=== PATIENT | male | born 1960 | race Caucasian/White ===

== ENCOUNTER 2023-01-27 15:14 | Outpatient (RCR) | payer OTHER, SELFPAY | END 2023-02-21 12:34 | disposition home or self-care (01) | LOC: PT 15:14 | PROVIDERS: PCP Student in an Organized Health Care Education/Training Program; Visit Provider Specialist | DX: S90.01XD Contusion of right ankle, subsequent encounter (principal); M76.821 Posterior tibial tendinitis, right leg; M25.571 Pain in right ankle and joints of right foot | CPT/HCPCS: 97110; 97161; 97535 ==

== ENCOUNTER 2023-04-09 13:53 | Emergency (ER) | payer OTHER, SELFPAY ==
[2023-04-09 13:59] VITALS: BP 180/88; PULSE 78; RESP 20; TEMP 36.8; O2SAT 98; BMI 27.1
--- NOTE | 2023-04-09 14:08 | CT_ITS ---
The [address] [address] Patient Name: DARIUS VALERA MRN: [id number] date: 1960 Sex: M Assigned Patient Location: ER Current Patient Location: Accession/Order Number: [id number] Exam Date: 04/09/2023 14:40 Report Date: 04/09/2023 15:05 At the request of: PATRIZIA STARKS Procedure: CT abdomen pelvis wo con CT abdomen pelvis wo con, 04/09/2023 2:40 PM EDT INDICATION: Kidney stone COMPARISON: No prior CT scan of the abdomen and pelvis available for comparison at the time of this dictation. TECHNIQUE: Axial images of the abdomen and pelvis were obtained without IV contrast. Multiplanar reformatted images were generated and reviewed as needed. Dose reduction techniques were achieved by using automated exposure control and/or adjustment of mA and/or kV according to patient size and/or use of iterative reconstruction technique. FINDINGS: No consolidation or effusion. The liver, gallbladder, pancreas, spleen and adrenals are unremarkable on a non contrast scan. No nephrolithiasis. Mild left perinephric and periureteral fat stranding. 3 mm calculus at the left UVJ with mild collecting system dilatation proximally. No urinary bladder calculi. Central calcifications within a mildly enlarged prostate gland. No aortic aneurysm. No bowel obstruction or acute focal inflammation. Normal appendix. Colonic diverticulosis. No pneumatosis, pneumoperitoneum or ascites. No mesenteric or retroperitoneal lymphadenopathy. No acute fracture or dislocation. Multilevel degenerative disc disease, most pronounced T12/L1. CT/CT abdomen pelvis wo con IMPRESSION: 1. 3 mm calculus at the left UVJ with mild left hydroureteronephrosis. 2. Diverticulosis coli. Electronically authenticated by: BASILIO WU Date: 04/09/2023 15:05
--- NOTE | 2023-04-09 14:09 | ED.ABDPAIN1 ---
Documented by User: DOROTHEA Burnham 04/09/23 15:24 HPI - Abdominal Pain General Chief Complaint: Abdominal Pain Stated Complaint: FLANK PAIN Time Seen by Provider: 04/09/23 14:04 Source: patient Mode of arrival: walk-in Limitations: no limitations History of Present Illness HPI narrative: Patient is a 62-year-old male with a history of kidney stones presents to the emergency department for left flank pain radiating into the left side of the abdomen that began yesterday. He reports decreased urination and minimal dysuria. He has had no fevers, nausea or vomiting. No medications taken prior to arrival. He drove himself to the Emergency Room. He states he last passed kidney stone about ten years ago, he has not needed surgery for kidney stones in the past. Related Data Previous Rx's Medication Instructions Recorded ciprofloxacin HCl 500 mg tablet 500 mg PO BID #14 tabs 04/09/23 (Cipro) ketorolac 10 mg tablet 10 mg PO TID PRN pain #10 tabs 04/09/23 ondansetron 4 mg disintegrating 4 mg PO Q6H PRN nausea and 04/09/23 tablet vomiting #12 tabs oxycodone-acetaminophen 5 mg-325 1 tab PO Q6H PRN pain #15 tabs 04/09/23 mg tablet (Percocet) tamsulosin 0.4 mg capsule (Flomax) 0.4 mg PO DAILY #7 caps 04/09/23 Allergies Allergy/AdvReac Type Severity Reaction Status Date / Time No Known Drug Allergies Allergy Verified 04/09/23 13:58 Review of Systems ROS Constitutional Denies: fever or chills Ears, nose, mouth, and throat Denies: throat pain Cardiovascular Denies: chest pain Respiratory Denies: shortness of breath Gastrointestinal Reports: abdominal pain; Denies: nausea or vomiting Genitourinary Reports: painful urination and decreased urine ouput Musculoskeletal Reports: back pain Integumentary/Breast Denies: rash Neurological Denies: headache Hematologic/Lymphatic Denies: easy bruising PFSH PFSH Social History Smoking status: Never smoker Exam Narrative Exam Narrative: Gen.: Awake, alert, in no distress Head: Normocephalic, atraumatic ENT: Moist mucous membranes Respiratory: No respiratory distress Gastrointestinal: Abdomen is soft, nondistended and nontender to palpation Back: No CVA tenderness Extremities: Moves extremities equally Psych: Normal mood and affect Neuro: No focal neuro deficit Skin: Warm, dry, intact Constitutional Vital Signs, click to edit/add: Last Vital Signs Temp 97.8 F 04/09/23 15:15 Pulse 65 04/09/23 15:15 Resp 16 04/09/23 15:15 BP 148/82 H 04/09/23 15:15 Pulse Ox 96 04/09/23 15:15 O2 Del Method Room Air 04/09/23 15:15 Course Vital Signs Vital signs: Vital Signs Temperature 98.3 F 04/09/23 13:59 Pulse Rate 78 04/09/23 13:59 Respiratory Rate 20 04/09/23 13:59 Blood Pressure 180/88 H 04/09/23 13:59 Pulse Oximetry 98 04/09/23 13:59 Oxygen Delivery Method Room Air 04/09/23 13:59 Temperature 97.8 F 04/09/23 15:15 Pulse Rate 65 04/09/23 15:15 Respiratory Rate 16 04/09/23 15:15 Blood Pressure 148/82 H 04/09/23 15:15 Pulse Oximetry 96 04/09/23 15:15 Oxygen Delivery Method Room Air 04/09/23 15:15 MDM - Abdominal Pain MDM Narrative Medical decision making narrative: Patient was medicated with IV fluids, Dilaudid, Toradol, Zofran. He was noted to have leukocytosis but no bandemia, no evidence of urinary tract infection at this time. Lactic acid is normal and kidney function is also within normal limits. CT scan shows a 3 mm stone at the left UVJ with mild hydronephrosis. Because of the leukocytosis, we will place the patient on an antibiotic although he does not have unstable vital signs, active vomiting. He is appropriate for follow-up at home with urology. Pain medication, NSAIDs, Zofran, antibiotics and Flomax given for home. Patient was rechecked by attending physician prior to discharge. Return to the Emergency Room if symptoms change or worsen. Medical Records Attestation: I reviewed the patient's medical records. Lab Data Attestation: I reviewed the patient's lab results. Labs: Lab Results 04/09/23 04/09/23 Range/Units 14:04 14:05 WBC 21.5 H (4.0-11.0) 10^3/uL RBC 5.17 (4.70-6.10) 10^6/uL Hgb 16.0 (14.0-18.0) g/dL Hct 46.2 (42.0-54.0) % MCV 89.4 (80.0-94.0) fL MCH 30.9 (25.9-34.0) pg MCHC 34.6 (29.9-35.2) g/dL RDW 12.8 (11.0-15.0) % Plt Count 166 (150-450) 10^3/uL MPV 9.9 (9.5-13.5) fL Seg Neuts % (Manual) 45.0 Band Neutrophils % 0.0 (0-5) % Lymphocytes % (Manual) 50.0 (20.5-60.0) % Monocytes % (Manual) 5.0 (1.7-12.0) % Eosinophils % (Manual) 0.0 L (0.9-7.0) % Basophils % (Manual) 0.0 L (0.2-2.0) % Neutrophils # (Manual) 9.67 H (1.4-6.5) 10^3/uL Band Neutrophils # 0.0 (0.0-0.3) 10^3/uL Lymphocytes # (Manual) 10.75 H (1.20-3.80) 10^3/uL Monocytes # (Manual) 1.07 H (0.30-0.80) 10^3/uL Eosinophils # (Manual) 0.00 (0.00-0.70) 10^3/uL Basophils # (Manual) 0.00 (0.00-0.10) 10^3/uL Smudge Cells Seen Sodium 137 (136-145) mmol/L Potassium 4.0 (3.5-5.1) mmol/L Chloride 101 (98-107) mmol/L Carbon Dioxide 28.3 (21.0-32.0) mmol/L Anion Gap 11.7 BUN 18.0 (7.0-18.0) mg/dL Creatinine 1.08 (0.70-1.30) mg/dL Est GFR ( Amer) >60 (>=60) Est GFR (Non-Af Amer) >60 (>=60) BUN/Creatinine Ratio 16.7 Glucose 118 H (74-106) mg/dL Lactate 0.7 (0.4-2.0) mmol/L Calcium 8.9 (8.5-10.1) mg/dL Total Bilirubin 0.8 (0.2-1.0) mg/dL AST 33 (15-37) U/L ALT 40 (16-63) U/L Alkaline Phosphatase 99 (46-116) U/L Total Protein 7.1 (6.4-8.2) g/dL Albumin 4.3 (3.4-5.0) g/dL Globulin 2.8 g/dL Albumin/Globulin Ratio 1.5 Lipase 105.0 (73.0-393.0) U/L Urine Color Lt. yellow (YELLOW) Urine Clarity Clear (CLEAR) Urine pH 6.0 (5.0-9.0) Ur Specific [place] 1.015 (1.005-1.025) Urine Protein Negative (NEG/TRACE) mg/dL Urine Glucose (UA) Negative (NEGATIVE) mg/dL Urine Ketones Negative (NEGATIVE) mg/dL Urine Occult Blood Moderate A (NEGATIVE) Urine Nitrite Negative (NEGATIVE) Urine Bilirubin Negative (NEGATIVE) Urine Urobilinogen 0.2 (0.2-1.0) EU/dL Ur Leukocyte Esterase Negative (NEGATIVE) Urine RBC 5-10 A (0-2) #/HPF Urine WBC 0-2 A (NONE SEEN) #/HPF Ur Squamous Epith Cells Rare (NONE/RARE) #/LPF Urine Crystals None seen (None Seen) #/HPF Urine Bacteria None seen (NONE SEEN) #/HPF Urine Casts None seen (NONE SEEN) #/LPF Urine Mucus Trace A (NONE SEEN) Ur Culture Indicated? No Imaging Data CT scan - abdomen: Attestation: I have reviewed the pertinent imaging results. Radiologist's impression: Procedure: CT abdomen pelvis wo con CT abdomen pelvis wo con, 04/09/2023 2:40 PM EDT INDICATION: Kidney stone COMPARISON: No prior CT scan of the abdomen and pelvis available for comparison at the time of this dictation. TECHNIQUE: Axial images of the abdomen and pelvis were obtained without IV contrast. Multiplanar reformatted images were generated and reviewed as needed. Dose reduction techniques were achieved by using automated exposure control and/or adjustment of mA and/or kV according to patient size and/or use of iterative reconstruction technique. FINDINGS: No consolidation or effusion. The liver, gallbladder, pancreas, spleen and adrenals are unremarkable on a non contrast scan. No nephrolithiasis. Mild left perinephric and periureteral fat stranding. 3 mm calculus at the left UVJ with mild collecting system dilatation proximally. No urinary bladder calculi. Central calcifications within a mildly enlarged prostate gland. No aortic aneurysm. No bowel obstruction or acute focal inflammation. Normal appendix. Colonic diverticulosis. No pneumatosis, pneumoperitoneum or ascites. No mesenteric or retroperitoneal lymphadenopathy. No acute fracture or dislocation. Multilevel degenerative disc disease, most pronounced T12/L1. IMPRESSION: 1. 3 mm calculus at the left UVJ with mild left hydroureteronephrosis. 2. Diverticulosis coli. Electronically authenticated by: BASILIO WU Date: 04/09/2023 15:05 Discharge Plan Discharge Chief Complaint: Abdominal Pain Clinical Impression: Kidney stone on left side Patient Disposition: Home, Self-Care Time of Disposition Decision: 15:18 Condition: Good Prescriptions / Home Meds: New ciprofloxacin HCl [Cipro] 500 mg tablet 500 mg PO BID Qty: 14 0RF ketorolac 10 mg tablet 10 mg PO TID PRN (Reason: pain) Qty: 10 0RF oxycodone-acetaminophen [Percocet] 5-325 mg tablet 1 tab PO Q6H PRN (Reason: pain) Qty: 15 0RF Rx Instructions: DX: N20.0 tamsulosin [Flomax] 0.4 mg capsule 0.4 mg PO DAILY Qty: 7 0RF ondansetron 4 mg tablet,disintegrating 4 mg PO Q6H PRN (Reason: nausea and vomiting) Qty: 12 0RF Instructions: Kidney Stones (ED), How to Strain Your Urine (ED) Additional Instructions: Follow up with urology Stand Alone Forms: Portal Instructions Discharge Date/Time: 04/09/23 15:56 Documented by User: Renay Winston MD 04/09/23 16:40 HPI - Abdominal Pain General Chief Complaint: Abdominal Pain Stated Complaint: FLANK PAIN Time Seen by Provider: 04/09/23 14:04 Related Data Previous Rx's Medication Instructions Recorded ciprofloxacin HCl 500 mg tablet 500 mg PO BID #14 tabs 04/09/23 (Cipro) ketorolac 10 mg tablet 10 mg PO TID PRN pain #10 tabs 04/09/23 ondansetron 4 mg disintegrating 4 mg PO Q6H PRN nausea and 04/09/23 tablet vomiting #12 tabs oxycodone-acetaminophen 5 mg-325 1 tab PO Q6H PRN pain #15 tabs 04/09/23 mg tablet (Percocet) tamsulosin 0.4 mg capsule (Flomax) 0.4 mg PO DAILY #7 caps 04/09/23 Allergies Allergy/AdvReac Type Severity Reaction Status Date / Time No Known Drug Allergies Allergy Verified 04/09/23 13:58 PFSH PFSH Social History Smoking status: Never smoker Exam Constitutional Vital Signs, click to edit/add: Last Vital Signs Temp 97.8 F 04/09/23 15:15 Pulse 65 04/09/23 15:15 Resp 16 04/09/23 15:15 BP 148/82 H 04/09/23 15:15 Pulse Ox 96 04/09/23 15:15 O2 Del Method Room Air 04/09/23 15:15 Course Vital Signs Vital signs: Vital Signs Temperature 98.3 F 04/09/23 13:59 Pulse Rate 78 04/09/23 13:59 Respiratory Rate 20 04/09/23 13:59 Blood Pressure 180/88 H 04/09/23 13:59 Pulse Oximetry 98 04/09/23 13:59 Oxygen Delivery Method Room Air 04/09/23 13:59 Temperature 97.8 F 04/09/23 15:15 Pulse Rate 65 04/09/23 15:15 Respiratory Rate 16 04/09/23 15:15 Blood Pressure 148/82 H 04/09/23 15:15 Pulse Oximetry 96 04/09/23 15:15 Oxygen Delivery Method Room Air 04/09/23 15:15 MDM - Abdominal Pain MDM Narrative Medical decision making narrative: Patient was medicated with IV fluids, Dilaudid, Toradol, Zofran. He was noted to have leukocytosis but no bandemia, no evidence of urinary tract infection at this time. Lactic acid is normal and kidney function is also within normal limits. CT scan shows a 3 mm stone at the left UVJ with mild hydronephrosis. Because of the leukocytosis, we will place the patient on an antibiotic although he does not have unstable vital signs, active vomiting. He is appropriate for follow-up at home with urology. Pain medication, NSAIDs, Zofran, antibiotics and Flomax given for home. Patient was rechecked by attending physician prior to discharge. Return to the Emergency Room if symptoms change or worsen. Attending physician attestation I have seen and evaluated this patient. I have reviewed the mid-level provider?s documentation medical decision making and treatment plan. I agree with the mid-level provider?s assessment, and plan. Lab Data Labs: Lab Results 04/09/23 04/09/23 Range/Units 14:04 14:05 WBC 21.5 H (4.0-11.0) 10^3/uL RBC 5.17 (4.70-6.10) 10^6/uL Hgb 16.0 (14.0-18.0) g/dL Hct 46.2 (42.0-54.0) % MCV 89.4 (80.0-94.0) fL MCH 30.9 (25.9-34.0) pg MCHC 34.6 (29.9-35.2) g/dL RDW 12.8 (11.0-15.0) % Plt Count 166 (150-450) 10^3/uL MPV 9.9 (9.5-13.5) fL Seg Neuts % (Manual) 45.0 Band Neutrophils % 0.0 (0-5) % Lymphocytes % (Manual) 50.0 (20.5-60.0) % Monocytes % (Manual) 5.0 (1.7-12.0) % Eosinophils % (Manual) 0.0 L (0.9-7.0) % Basophils % (Manual) 0.0 L (0.2-2.0) % Neutrophils # (Manual) 9.67 H (1.4-6.5) 10^3/uL Band Neutrophils # 0.0 (0.0-0.3) 10^3/uL Lymphocytes # (Manual) 10.75 H (1.20-3.80) 10^3/uL Monocytes # (Manual) 1.07 H (0.30-0.80) 10^3/uL Eosinophils # (Manual) 0.00 (0.00-0.70) 10^3/uL Basophils # (Manual) 0.00 (0.00-0.10) 10^3/uL Smudge Cells Seen Sodium 137 (136-145) mmol/L Potassium 4.0 (3.5-5.1) mmol/L Chloride 101 (98-107) mmol/L Carbon Dioxide 28.3 (21.0-32.0) mmol/L Anion Gap 11.7 BUN 18.0 (7.0-18.0) mg/dL Creatinine 1.08 (0.70-1.30) mg/dL Est GFR ( Amer) >60 (>=60) Est GFR (Non-Af Amer) >60 (>=60) BUN/Creatinine Ratio 16.7 Glucose 118 H (74-106) mg/dL Lactate 0.7 (0.4-2.0) mmol/L Calcium 8.9 (8.5-10.1) mg/dL Total Bilirubin 0.8 (0.2-1.0) mg/dL AST 33 (15-37) U/L ALT 40 (16-63) U/L Alkaline Phosphatase 99 (46-116) U/L Total Protein 7.1 (6.4-8.2) g/dL Albumin 4.3 (3.4-5.0) g/dL Globulin 2.8 g/dL Albumin/Globulin Ratio 1.5 Lipase 105.0 (73.0-393.0) U/L Urine Color Lt. yellow (YELLOW) Urine Clarity Clear (CLEAR) Urine pH 6.0 (5.0-9.0) Ur Specific [place] 1.015 (1.005-1.025) Urine Protein Negative (NEG/TRACE) mg/dL Urine Glucose (UA) Negative (NEGATIVE) mg/dL Urine Ketones Negative (NEGATIVE) mg/dL Urine Occult Blood Moderate A (NEGATIVE) Urine Nitrite Negative (NEGATIVE) Urine Bilirubin Negative (NEGATIVE) Urine Urobilinogen 0.2 (0.2-1.0) EU/dL Ur Leukocyte Esterase Negative (NEGATIVE) Urine RBC 5-10 A (0-2) #/HPF Urine WBC 0-2 A (NONE SEEN) #/HPF Ur Squamous Epith Cells Rare (NONE/RARE) #/LPF Urine Crystals None seen (None Seen) #/HPF Urine Bacteria None seen (NONE SEEN) #/HPF Urine Casts None seen (NONE SEEN) #/LPF Urine Mucus Trace A (NONE SEEN) Ur Culture Indicated? No Discharge Plan Discharge Chief Complaint: Abdominal Pain Clinical Impression: Kidney stone on left side Patient Disposition: Home, Self-Care Time of Disposition Decision: 15:18 Condition: Good Prescriptions / Home Meds: New ciprofloxacin HCl [Cipro] 500 mg tablet 500 mg PO BID Qty: 14 0RF ketorolac 10 mg tablet 10 mg PO TID PRN (Reason: pain) Qty: 10 0RF oxycodone-acetaminophen [Percocet] 5-325 mg tablet 1 tab PO Q6H PRN (Reason: pain) Qty: 15 0RF Rx Instructions: DX: N20.0 tamsulosin [Flomax] 0.4 mg capsule 0.4 mg PO DAILY Qty: 7 0RF ondansetron 4 mg tablet,disintegrating 4 mg PO Q6H PRN (Reason: nausea and vomiting) Qty: 12 0RF Instructions: Kidney Stones (ED), How to Strain Your Urine (ED) Additional Instructions: Follow up with urology Stand Alone Forms: Portal Instructions Discharge Date/Time: 04/09/23 15:56
[2023-04-09 14:19] VITALS: RESP 16; O2SAT 97
[2023-04-09 14:24] LABS: Hematocrit 46.2 % (42.0-54.0); Mean Corpuscular HGB Conc 34.6 g/dL (29.9-35.2); Mean Corpuscular Hemoglobin 30.9 pg (25.9-34.0); Mean Corpuscular Volume 89.4 fL (80.0-94.0); Mean Platelet Volume 9.9 fL (9.5-13.5); Platelet Count 166 10^3/uL (150-450); Red Blood Count 5.17 10^6/uL (4.70-6.10); Red Cell Distribution Width 12.8 % (11.0-15.0); White Blood Count 21.5 10^3/uL (4.0-11.0)
[2023-04-09 14:25] LABS: Bilirubin Urine NEGATIVE (NEGATIVE); Blood Urine MODERATE (NEGATIVE); Clarity Urine CLEAR (CLEAR); Color Urine LT. YELLOW (YELLOW); Glucose Urine UA NEGATIVE (NEGATIVE); Ketones Urine NEGATIVE (NEGATIVE); Leukocyte Esterase Urine NEGATIVE (NEGATIVE); Nitrite Urine NEGATIVE (NEGATIVE); Protein Urine NEGATIVE (NEG/TRACE); Specific Gravity Urine 1.015 (1.005-1.025); Urobilinogen Urine 0.2 EU/dL (0.2-1.0)
[2023-04-09] MEDS: 0.9 % SODIUM CHLORIDE 1,000 ML 999 ML IV (14:26)
[2023-04-09] MEDS: KETOROLAC TROMETHAMINE 30 MG/ML VIAL IVP (14:26)
[2023-04-09] MEDS: ONDANSETRON PF 4 MG/2 ML VIAL IV (14:26)
[2023-04-09] MEDS: HYDROMORPHONE HCL 1 MG/ML CARTRIDGE IVP (14:27)
[2023-04-09 14:31] LABS: Urine Microscopic Indicated YES
[2023-04-09 14:40] LABS: Alanine Aminotransferase 40 U/L (16-63); Albumin Globulin Ratio 1.5; Albumin Level 4.3 g/dL (3.4-5.0); Alkaline Phosphatase 99 U/L (46-116); Anion Gap 11.7; Aspartate Amino Transferase 33 U/L (15-37); BUN Creatinine Ratio 16.7; Bilirubin Total 0.8 mg/dL (0.2-1.0); Calcium 8.9 mg/dL (8.5-10.1); Carbon Dioxide 28.3 mmol/L (21.0-32.0); Chloride 101 mmol/L (98-107); Estimated GFR (African America >60 (>=60); Estimated GFR (Non-African Ame >60 (>=60); Globulin 2.8 g/dL; Glucose 118 mg/dL (74-106); Sodium 137 mmol/L (136-145); Total Protein 7.1 g/dL (6.4-8.2)
[2023-04-09 14:42] LABS: Bacteria Urine NONE SEEN #/HPF (NONE SEEN); Mucus Urine TRACE (NONE SEEN); WBC Urine 0-2 #/HPF (NONE SEEN)
[2023-04-09 14:43] LABS: Cast Seen? NONE SEEN #/LPF (NONE SEEN); Crystals Seen? None Seen #/HPF (None Seen); Squamous Epithelial Cell Urine RARE #/LPF (NONE/RARE); Urine Culture Indicated NO
[2023-04-09 14:44] LABS: Lactate/Lactic Acid 0.7 mmol/L (0.4-2.0)
[2023-04-09 14:49] LABS: Lymphocytes Absolute Manual 10.75 10^3/uL (1.20-3.80); Monocytes Absolute Manual 1.07 10^3/uL (0.30-0.80); Segmented Neut Absolute Manual 9.67 10^3/uL (1.4-6.5); Smudge Cells SEEN
[2023-04-09 15:15] VITALS: BP 148/82; PULSE 65; RESP 16; TEMP 36.6; O2SAT 96
[2023-04-14] MEDS: IOHEXOL 240 MG/ML - 10 ML VIAL INJ (17:20)
[2023-04-14 18:06] VITALS: BP 161/91; PULSE 69; RESP 15; O2SAT 97
== END 2023-04-09 15:56 | disposition home or self-care (01) ==
PROVIDERS: Physician Assistant; Urology; Emergency Provider Emergency Medicine; PCP Specialist
DX: N20.0 Calculus of kidney (principal); Z87.442 Personal history of urinary calculi
CPT/HCPCS: 36415; 74176; 80053; 81001; 82365; 83605; 83690; 85027; 96374; 96375; 99285; J1170; Q9966

== ENCOUNTER 2023-04-14 09:57 | Observation (INO) | payer OTHER, SELFPAY ==
[2023-04-14 10:01] VITALS: BP 154/90; PULSE 88; RESP 18; TEMP 36.7; O2SAT 98; BMI 26.9
--- NOTE | 2023-04-14 10:26 | ED_ITS ---
HPI - Abdominal Pain General Chief Complaint: Abdominal Pain Stated Complaint: FLANK PAIN Time Seen by Provider: 04/14/23 10:08 Source: patient Mode of arrival: walk-in Limitations comment: kidney stone dx on Fri, still has not passed this. Pt still able to urinate, Urologist called this hospital for a consult for surgery today with Dr Hallman per . History of Present Illness HPI narrative: The patient was evaluated almost 5 days ago for left flank pain was found to have a diagnosis of left kidney stone with hydronephrosis the patient has been continuously using pain medication as well as Flomax with no improvement of his pain, he did call his urologist this morning and they told him to go back to the ER The patient denying any chills nausea vomiting, he also denies any burning with urination the pain is in the left flank sometimes radiate to the front Related Data Home Medications Medication Instructions Recorded Confirmed aspirin 81 mg tablet,delayed 81 mg PO DAILY 04/14/23 04/14/23 release (Adult Low Dose Aspirin) meloxicam 15 mg tablet 15 mg PO DAILY 04/14/23 04/14/23 nifedipine 30 mg tablet,extended 30 mg PO DAILY 04/14/23 04/14/23 release valsartan 320 1 tab PO DAILY 04/14/23 04/14/23 mg-hydrochlorothiazide 25 mg tablet (Diovan HCT) Previous Rx's Medication Instructions Recorded ciprofloxacin HCl 500 mg tablet 500 mg PO BID #14 tabs 04/09/23 (Cipro) ondansetron 4 mg disintegrating 4 mg PO Q6H PRN nausea and 04/09/23 tablet vomiting #12 tabs oxycodone-acetaminophen 5 mg-325 1 tab PO Q6H PRN pain #15 tabs 04/09/23 mg tablet (Percocet) tamsulosin 0.4 mg capsule (Flomax) 0.4 mg PO DAILY #7 caps 04/09/23 Allergies Allergy/AdvReac Type Severity Reaction Status Date / Time No Known Drug Allergies Allergy Verified 04/09/23 13:58 Review of Systems ROS Status of ROS 10 or more systems reviewed and unremarkable except as noted in history and below [facility] Medical History (Updated 04/14/23 @ 13:38 by Sarika Potts MD) Surgical History (Updated 04/14/23 @ 14:29 by Kevin Karimi) Family History (Updated 04/14/23 @ 14:35 by Kevin Karimi) Brother Family history of hypertension Mother Family history of hypertension Son Family history of hypertension Social History (Updated 04/14/23 @ 14:43 by Kevin Karimi) Within the past year, how often did you have a drink containing alcohol: monthly or less Within the past year, how often did you have six or more drinks on one occasion: never Smoking status: Never smoker Non-prescribed substance use: denies use Previous occupational history: [employer] Highest level of school completed/degree received: high school graduate Are you now , , , , never or living with a partner: In a typical week, how many times do you talk on the telephone with family, friends, or neighbors: 3 or more times per week How often do you get together with friends or relatives: twice per week How often do you attend scientology or sabianism services: 1-3 times per year Do you belong to any clubs or organizations such as scientology groups unions, [employer] or athletic groups, or school groups: yes Total score: 3 Score interpretation: A score of greater than or equal to 2 indicates the lowest level of social isolation. Little interest or pleasure in doing things: not at all Feeling down, depressed, or hopeless: not at all Feel stressed/tense/nervous/anxious/difficulty sleeping: not at all Life stressors: recent of family or friend Do you think of yourself as: straight/heterosexual Gender Identity: male Exam Narrative Exam Narrative: Nurses notes and vital signs reviewed and patient is not hypoxic. General: Well-appearing and in no apparent distress. Skin: Warm, dry, no pallor noted. No rash. Head: Normocephalic, atraumatic. Neck: Supple, non-tender. Eye: Pupils are equal, round and EOMI. No scleral icterus. Ears, Nose, Mouth, and Throat: TM are clear, no nasal mucosal hypertrophy. Oral mucosa is moist, no posterior oropharynx erythema, uvula is mid-line Cardiovascular: Regular Rate and Rhythm without murmur, gallop or rub. Respiratory: No accessory muscle use or respiratory distress. Lungs are clear to auscultation, no wheezing, rales or rhonchi Chest Wall: no tenderness Back: No midline thoracic or lumbar vertebral tenderness. Left costophrenic angle tenderness Musculoskeletal: normal ROM, no calf or popliteal tenderness, no lower extremity edema/swelling GI: Abdomen is soft, non-distended. Normal bowel sounds. No masses appreciated. No tenderness to palpation. No rebound, guarding, or rigidity noted. Neurological: A&O x4. No cranial nerve dysfunction observed. No truncal ataxia. Moves all extremities. Sensation intact. Psychiatric: Cooperative and interactive. Normal mood and affect. Constitutional Vital Signs, click to edit/add: Last Vital Signs Temp 97.5 F L 04/14/23 14:08 Pulse 63 04/14/23 14:08 Resp 16 04/14/23 14:08 BP 146/84 H 04/14/23 14:08 Pulse Ox 95 04/14/23 14:08 O2 Del Method Room Air 04/14/23 14:08 Course Vital Signs Vital signs: Vital Signs Temperature 98.1 F 04/14/23 10:01 Pulse Rate 88 04/14/23 10:01 Respiratory Rate 18 04/14/23 10:01 Blood Pressure 154/90 H 04/14/23 10:01 Pulse Oximetry 98 04/14/23 10:01 Oxygen Delivery Method Room Air 04/14/23 10:01 Temperature 97.5 F L 04/14/23 14:08 Pulse Rate 63 04/14/23 14:08 Respiratory Rate 16 04/14/23 14:08 Blood Pressure 146/84 H 04/14/23 14:08 Pulse Oximetry 95 04/14/23 14:08 Oxygen Delivery Method Room Air 04/14/23 14:08 MDM - Abdominal Pain MDM Narrative Medical decision making narrative: Patient white blood cell was trending down compared to the last time he was here and his chemistry did show some acute kidney injury with creatinine 1.5 The patient was provided with IV fluids as well as pain medication in the ER The patient case was discussed with Dr. Gamino the plan is to obtain an ultrasound of the left kidney to confirm the hydronephrosis The patient also will get an KUB The patient will be kept n.p.o. I did discuss with the patient the plan for possible procedure and he is agreeable with that The patient ultrasound confirms a diagnosis of left moderate hydronephrosis the patient will be admitted by Dr. Rae after discussing the case with him, Dr. Gamino will take the patient for procedure around 3 to 4 PM today Lab Data Labs: Lab Results 04/14/23 Range/Units 10:25 WBC 14.5 H (4.0-11.0) 10^3/uL RBC 4.88 (4.70-6.10) 10^6/uL Hgb 15.0 (14.0-18.0) g/dL Hct 43.5 (42.0-54.0) % MCV 89.1 (80.0-94.0) fL MCH 30.7 (25.9-34.0) pg MCHC 34.5 (29.9-35.2) g/dL RDW 12.6 (11.0-15.0) % Plt Count 147 L (150-450) 10^3/uL MPV 9.8 (9.5-13.5) fL Neut % (Auto) 37.4 L (43.0-75.0) % Lymph % (Auto) 55.9 (20.5-60.0) % Stone % (Auto) 5.4 (1.7-12.0) % Eos % (Auto) 0.8 L (0.9-7.0) % Baso % (Auto) 0.3 (0.2-2.0) % Neut # (Auto) 5.4 (1.4-6.5) 10^3/uL Lymph # (Auto) 8.1 H (1.2-3.8) 10^3/uL Stone # (Auto) 0.8 (0.3-0.8) 10^3/uL Eos # (Auto) 0.1 (0.0-0.7) 10^3/uL Baso # (Auto) 0.1 (0.0-0.1) 10^3/uL Abs Immat Gran (auto) 0.03 (0.00-0.03) 10^3/uL Imm/Tot Granulo (auto) 0.2 (0.0-0.5) % Sodium 136 (136-145) mmol/L Potassium 3.9 (3.5-5.1) mmol/L Chloride 97 L (98-107) mmol/L Carbon Dioxide 30.1 (21.0-32.0) mmol/L Anion Gap 12.8 BUN 17.0 (7.0-18.0) mg/dL Creatinine 1.55 H (0.70-1.30) mg/dL Est GFR ( Amer) 55 L (>=60) Est GFR (Non-Af Amer) 46 L (>=60) BUN/Creatinine Ratio 11.0 Glucose 107 H (74-106) mg/dL Calcium 9.1 (8.5-10.1) mg/dL Total Bilirubin 1.0 (0.2-1.0) mg/dL AST 29 (15-37) U/L ALT 37 (16-63) U/L Alkaline Phosphatase 91 (46-116) U/L Total Protein 7.4 (6.4-8.2) g/dL Albumin 4.0 (3.4-5.0) g/dL Globulin 3.4 g/dL Albumin/Globulin Ratio 1.2 Urine Color Lt. yellow (YELLOW) Urine Clarity Clear (CLEAR) Urine pH 7.0 (5.0-9.0) Ur Specific [place] <=1.005 A (1.005-1.025) Urine Protein Negative (NEG/TRACE) mg/dL Urine Glucose (UA) Negative (NEGATIVE) mg/dL Urine Ketones Negative (NEGATIVE) mg/dL Urine Occult Blood Small A (NEGATIVE) Urine Nitrite Negative (NEGATIVE) Urine Bilirubin Negative (NEGATIVE) Urine Urobilinogen 0.2 (0.2-1.0) EU/dL Ur Leukocyte Esterase Negative (NEGATIVE) Urine RBC 5-10 A (0-2) #/HPF Urine WBC None seen (NONE SEEN) #/HPF Ur Squamous Epith Cells Rare (NONE/RARE) #/LPF Urine Crystals Seen A (None Seen) #/HPF Calcium Oxalate Crystal Many Urine Bacteria None seen (NONE SEEN) #/HPF Urine Casts None seen (NONE SEEN) #/LPF Urine Mucus None seen (NONE SEEN) Ur Culture Indicated? No Discharge Plan Discharge Chief Complaint: Abdominal Pain Clinical Impression: Hydronephrosis, Kidney stone on left side Patient Disposition: Admitted as Observation Time of Disposition Decision: 13:38 Condition: Good Discharge Date/Time: 04/14/23 13:55
[2023-04-14] MEDS: FAMOTIDINE/PF 20 MG/2 ML VIAL IV (10:32)
[2023-04-14] MEDS: KETOROLAC TROMETHAMINE 30 MG/ML VIAL 15 MG IVP (10:32)
[2023-04-14 11:05] LABS: Basophils Absolute Auto 0.1 10^3/uL (0.0-0.1); Basophils Percent Auto 0.3 % (0.2-2.0); Eosinophils Absolute Auto 0.1 10^3/uL (0.0-0.7); Eosinophils Percent Auto 0.8 % (0.9-7.0); Hematocrit 43.5 % (42.0-54.0); Immature Granulocytes Abs Auto 0.03 10^3/uL (0.00-0.03); Immature Granulocytes Pct Auto 0.2 % (0.0-0.5); Lymphocytes Absolute Auto 8.1 10^3/uL (1.2-3.8); Lymphocytes Percent Auto 55.9 % (20.5-60.0); Mean Corpuscular HGB Conc 34.5 g/dL (29.9-35.2); Mean Corpuscular Hemoglobin 30.7 pg (25.9-34.0); Mean Corpuscular Volume 89.1 fL (80.0-94.0); Mean Platelet Volume 9.8 fL (9.5-13.5); Monocytes Absolute Auto 0.8 10^3/uL (0.3-0.8); Monocytes Percent Auto 5.4 % (1.7-12.0); Neutrophils Absolute Auto 5.4 10^3/uL (1.4-6.5); Neutrophils Percent Auto 37.4 % (43.0-75.0); Platelet Count 147 10^3/uL (150-450); Red Blood Count 4.88 10^6/uL (4.70-6.10); Red Cell Distribution Width 12.6 % (11.0-15.0); White Blood Count 14.5 10^3/uL (4.0-11.0)
[2023-04-14 11:07] LABS: Bilirubin Urine NEGATIVE (NEGATIVE); Blood Urine SMALL (NEGATIVE); Clarity Urine CLEAR (CLEAR); Color Urine LT. YELLOW (YELLOW); Glucose Urine UA NEGATIVE (NEGATIVE); Ketones Urine NEGATIVE (NEGATIVE); Leukocyte Esterase Urine NEGATIVE (NEGATIVE); Nitrite Urine NEGATIVE (NEGATIVE); Protein Urine NEGATIVE (NEG/TRACE); Specific Gravity Urine <=1.005 (1.005-1.025); Urobilinogen Urine 0.2 EU/dL (0.2-1.0)
[2023-04-14 11:10] LABS: Urine Microscopic Indicated YES
[2023-04-14 11:13] LABS: Bacteria Urine NONE SEEN #/HPF (NONE SEEN); Crystals Seen? Seen #/HPF (None Seen); Mucus Urine NONE SEEN (NONE SEEN); Squamous Epithelial Cell Urine RARE #/LPF (NONE/RARE); WBC Urine NONE SEEN #/HPF (NONE SEEN)
[2023-04-14 11:14] LABS: Calcium Oxalate Crystals Urine MANY; Cast Seen? NONE SEEN #/LPF (NONE SEEN); Urine Culture Indicated NO
[2023-04-14 11:29] LABS: Alanine Aminotransferase 37 U/L (16-63); Albumin Globulin Ratio 1.2; Alkaline Phosphatase 91 U/L (46-116); Anion Gap 12.8; Aspartate Amino Transferase 29 U/L (15-37); Calcium 9.1 mg/dL (8.5-10.1); Carbon Dioxide 30.1 mmol/L (21.0-32.0); Chloride 97 mmol/L (98-107); Estimated GFR (African America 55 (>=60); Estimated GFR (Non-African Ame 46 (>=60); Globulin 3.4 g/dL; Glucose 107 mg/dL (74-106); Potassium 3.9 mmol/L (3.5-5.1); Sodium 136 mmol/L (136-145); Total Protein 7.4 g/dL (6.4-8.2)
--- NOTE | 2023-04-14 11:45 | US_ITS ---
The [address] [address] Patient Name: DARIUS VALERA MRN: [id number] date: 1960 Sex: M Assigned Patient Location: ED.MAIN Current Patient Location: ER Accession/Order Number: [id number] Exam Date: 04/14/2023 11:50 Report Date: 04/14/2023 12:43 At the request of: ADIN RAZA Procedure: US renal BI EXAM: US renal BI HISTORY: left kidney hydronephrosis . The patient has left flank pain for one week. COMPARISON: Correlation is made with the CT study of the abdomen 04/09/2023 TECHNIQUE: Multiple sonographic images of the kidneys and urinary bladder were obtained, supplemented with Doppler. FINDINGS: The right kidney measures 11.8 x 5.3 x 5.2 cm. The cortical thickness is 12 mm. No cystic or solid mass is identified. The Doppler study is unremarkable. There is no evidence of hydronephrosis. The left kidney measures 11.4 x 6.0 x 6.4 cm. The cortical thickness is 14 mm. No cystic or solid mass is identified. The Doppler study is unremarkable. There is mild to moderate hydronephrosis present. The urinary bladder is well distended and the bladder king are smooth. The prevoid volume is 239 cc. No focal mass is identified. A 5 mm echogenic focus is seen at or near the left vesicoureteral junction, strongly suggesting a partially obstructing stone in the distal ureter. US/US renal BI IMPRESSION: There is no apparent intrarenal mass. Mild to moderate hydronephrosis is noted on the left. The urinary bladder king are smooth. An echogenic focus at or near the left vesicoureteral junction is strongly suggestive of partially obstructing stone in the distal ureter. Electronically authenticated by: DIANE CAMARA Date: 04/14/2023 12:43
--- NOTE | 2023-04-14 11:47 | XR_ITS ---
The [place] [id number] Patient Name: DARIUS VALERA MRN: [id number] date: 1960 Sex: M Assigned Patient Location: ED.MAIN Current Patient Location: ER Accession/Order Number: [id number] Exam Date: 04/14/2023 12:20 Report Date: 04/14/2023 13:03 At the request of: ADIN RAZA Procedure: XR abdomen 1V EXAM: XR abdomen 1V HISTORY: Abdominal pain left kidney stone COMPARISON: Radiograph of the pelvis 09/18/2018, noncontrast CT scan of the abdomen and pelvis 04/09/2023, retroperitoneal ultrasound 04/14/2023 TECHNIQUE: Single AP view of the abdomen. FINDINGS: No consolidation or effusion at the lung bases. Nonobstructive bowel gas pattern. No pneumatosis or pneumoperitoneum. Inspissated contrast within sigmoid diverticula and small left pelvic calcification. Calcifications within the prostate gland. No acute fracture or dislocation. XR/XR abdomen 1V IMPRESSION: 1. Left pelvic calcification likely represents UVJ calculus identified on retroperitoneal ultrasound from earlier today. Electronically authenticated by: BASILIO WU Date: 04/14/2023 13:03
[2023-04-14] MEDS: 0.9 % SODIUM CHLORIDE 1,000 ML 1000 ML IV (12:25)
[2023-04-14 12:27] VITALS: BP 143/91; PULSE 70; RESP 16; TEMP 36.6; O2SAT 95
[2023-04-14 13:36] VITALS: BP 146/84; PULSE 63; RESP 16; TEMP 36.4; O2SAT 95
[2023-04-14 14:08] VITALS: BP 146/84; PULSE 63; RESP 16; TEMP 36.4; O2SAT 95; BMI 26.0
--- NOTE | 2023-04-14 14:34 | ECG_ITS ---
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
[2023-04-14] MEDS: CEFTRIAXONE 1,000 MG in 0.9 % SODIUM CHLORIDE 50 ML 100 MG IV (15:12)
--- NOTE | 2023-04-14 17:03 | PM.CN ---
Consult Note: HPI Data of Consult Patient: new to practice Consult date: 04/14/23 Requesting Physician: Shaikh Kyra MD Primary Care Provider: Vivien Ye MD Consult Narrative Reason for consult: Left UVJ stone, hydro, renal colic, GRACE Narrative: 62 year old male with remote history of kidney stones presents again to the ER with uncontrolled left flank pain. He was diagnosed with a 3 mm left UVJ stone with mild hydronephrosis on CT scan and ER visit 04/09/23, sent home on tamsulosin, cipro and percocet. He presented again today due to uncontrolled pain and nausea. Workup here revealed improved WBC from 21 to 14.5 but now Cr 1.6 from normal prior. UA remained neg for UTI. Renal US shows mild to moderate left hydronephrosis. Stone visible on KUB. Urology was consulted for further recommendations and pt admitted to the hospitalist service for pain control. Patient continues to need narcotics for pain control. Endorses good PO intake and hydration without emesis, despite elevated Cr. Previously passed stone without intervention, about 10 years ago Denies medical issues, Hx of DE, stroke or DM2. On ASA 81mg. cc:: CC: Shaikh Kyra MD Review of Systems ROS Status of ROS 10 or more systems reviewed and unremarkable except as noted in history and below Constitutional Denies: fever or chills Eyes Denies: change in vision or blurry vision Ears, nose, mouth, and throat Denies: throat pain or throat swelling Cardiovascular Denies: chest pain or palpitations Respiratory Denies: shortness of breath or cough Gastrointestinal Reports: nausea; Denies: vomiting Genitourinary Reports: urinary urgency and difficulty starting urination; Denies: painful urination, urinary frequency or blood in urine Musculoskeletal Reports: back pain; Denies: extremity pain Integumentary/Breast Denies: rash or itching Neurological Denies: headache or numbness in extremities Psychiatric Denies: anxiety or memory loss Endocrine Denies: excessive urination or excessive thirst Hematologic/Lymphatic Denies: easy bruising or easy bleeding PFSH PFSH Medical History Surgical History Family History Brother Family history of hypertension Mother Family history of hypertension Son Family history of hypertension Social History Within the past year, how often did you have a drink containing alcohol: monthly or less Within the past year, how often did you have six or more drinks on one occasion: never Smoking status: Never smoker Non-prescribed substance use: denies use Previous occupational history: [employer] Highest level of school completed/degree received: high school graduate Are you now , , , , never or living with a partner: In a typical week, how many times do you talk on the telephone with family, friends, or neighbors: 3 or more times per week How often do you get together with friends or relatives: twice per week How often do you attend zoroastrianism or rastafarian services: 1-3 times per year Do you belong to any clubs or organizations such as zoroastrianism groups unions, [employer] or athletic groups, or school groups: yes Total score: 3 Score interpretation: A score of greater than or equal to 2 indicates the lowest level of social isolation. Little interest or pleasure in doing things: not at all Feeling down, depressed, or hopeless: not at all Feel stressed/tense/nervous/anxious/difficulty sleeping: not at all Life stressors: recent of family or friend Do you think of yourself as: straight/heterosexual Gender Identity: male Meds Home Medications and Allergies Home Medications Medication Instructions Recorded Confirmed Type ciprofloxacin HCl 500 mg tablet 500 mg PO BID #14 tabs 04/09/23 04/14/23 Rx (Cipro) ondansetron 4 mg disintegrating 4 mg PO Q6H PRN nausea and 04/09/23 04/14/23 Rx tablet vomiting #12 tabs oxycodone-acetaminophen 5 mg-325 1 tab PO Q6H PRN pain #15 tabs 04/09/23 04/14/23 Rx mg tablet (Percocet) tamsulosin 0.4 mg capsule (Flomax) 0.4 mg PO DAILY #7 caps 04/09/23 04/14/23 Rx aspirin 81 mg tablet,delayed 81 mg PO DAILY 04/14/23 04/14/23 History release (Adult Low Dose Aspirin) meloxicam 15 mg tablet 15 mg PO DAILY 04/14/23 04/14/23 History nifedipine 30 mg tablet,extended 30 mg PO DAILY 04/14/23 04/14/23 History release valsartan 320 1 tab PO DAILY 04/14/23 04/14/23 History mg-hydrochlorothiazide 25 mg tablet (Diovan HCT) Allergies Allergy/AdvReac Type Severity Reaction Status Date / Time No Known Drug Allergies Allergy Verified 04/09/23 13:58 Exam Narrative Exam Narrative: No acute distress, appears nontoxic Nonlabored respirations, symmetric chest rise, on room air Normal rate and rhythm, no peripheral edema Abd non tender to palpation, non distended Mild left CVA tenderness to palpation, no suprapubic or right CVA tenderness palpation Moves all extremities, no deformities Alert and oriented x 4, no acute focal deficits Skin dry, intact Appropriate, cooperative Constitutional Vital Signs, click to edit/add: Last Vital Signs Temp 97.5 F L 04/14/23 14:08 Pulse 63 04/14/23 14:08 Resp 16 04/14/23 14:08 BP 146/84 H 04/14/23 14:08 Pulse Ox 95 04/14/23 14:08 O2 Del Method Room Air 04/14/23 14:08 Results Labs Labs: Short CBC 04/14/23 Range/Units 10:25 WBC 14.5 H (4.0-11.0) 10^3/uL Hgb 15.0 (14.0-18.0) g/dL Hct 43.5 (42.0-54.0) % Plt Count 147 L (150-450) 10^3/uL BMP 04/14/23 10:25 Sodium 136 Potassium 3.9 Chloride 97 L Carbon Dioxide 30.1 BUN 17.0 Creatinine 1.55 H Glucose 107 H Calcium 9.1 Liver Function 04/14/23 Range/Units 10:25 Total Bilirubin 1.0 (0.2-1.0) mg/dL AST 29 (15-37) U/L ALT 37 (16-63) U/L Alkaline Phosphatase 91 (46-116) U/L Albumin 4.0 (3.4-5.0) g/dL Urine 04/14/23 Range/Units 10:25 Urine Color Lt. yellow (YELLOW) Urine Clarity Clear (CLEAR) Urine pH 7.0 (5.0-9.0) Ur Specific [place] <=1.005 A (1.005-1.025) Urine Protein Negative (NEG/TRACE) mg/dL Urine Glucose (UA) Negative (NEGATIVE) mg/dL Imaging US - abdomen: Attestation: I personally reviewed and interpreted this imaging study as follows: My impression: L UVJ stone and mild-mod hydronephrosis Radiologist's impression: Patient Name: DARIUS VALERA MRN: [facility]:[id number] date: 1960 Sex: M Assigned Patient Location: ED.MAIN Current Patient Location: ER Accession/Order Number: [id number] Exam Date: 04/14/2023 11:50 Report Date: 04/14/2023 12:43 At the request of: ADIN RAZA Procedure: US renal BI EXAM: US renal BI HISTORY: left kidney hydronephrosis . The patient has left flank pain for one week. COMPARISON: Correlation is made with the CT study of the abdomen 04/09/2023 TECHNIQUE: Multiple sonographic images of the kidneys and urinary bladder were obtained, supplemented with Doppler. FINDINGS: The right kidney measures 11.8 x 5.3 x 5.2 cm. The cortical thickness is 12 mm. No cystic or solid mass is identified. The Doppler study is unremarkable. There is no evidence of hydronephrosis. The left kidney measures 11.4 x 6.0 x 6.4 cm. The cortical thickness is 14 mm. No cystic or solid mass is identified. The Doppler study is unremarkable. There is mild to moderate hydronephrosis present. The urinary bladder is well distended and the bladder king are smooth. The prevoid volume is 239 cc. No focal mass is identified. A 5 mm echogenic focus is seen at or near the left vesicoureteral junction, strongly suggesting a partially obstructing stone in the distal ureter. US/US renal BI IMPRESSION: There is no apparent intrarenal mass. Mild to moderate hydronephrosis is noted on the left. The urinary bladder king are smooth. An echogenic focus at or near the left vesicoureteral junction is strongly suggestive of partially obstructing stone in the distal ureter. Assessment and Plan Assessment and Plan (1) Kidney stone on left side: (2) Hydronephrosis: (3) Renal colic on left side: (4) Acute renal injury: Plan 62 yo male as above with uncontrolled renal colic from a 3 mm left UVJ stone with hydronephrosis and GRACE diagnosed 04/09/23, re-presented to ER today. After discussion of risks/benefits of management options including continued medical expulsive therapy, he elects to proceed to the OR for cystoscopy, left RPG, ureteroscopy with laser lithotripsy/stone extraction, possible stent placement. Risks/benefits were discussed. -stable for dc home post op if no fevers and pain controlled
--- NOTE | 2023-04-14 17:55 | P.URON_ITS ---
Urology Surgery Operative Note Operative Note Procedure Date: 04/14/23 Time Out Performed: yes Pre-op Diagnosis: 1. Left distal ureteral stone with hydronephrosis 2. Acute renal injury 3. Renal colic Post-op Diagnosis: same as pre-op Procedures performed: Cystoscopy, left retrograde pyelogram, left ureteroscopy with stone basket extraction, stent placement Anesthesia: GETA (LMA, Dr. Titi Wallace ) Primary Surgeon: Iesha Gamino Complications: none Estimated blood loss (mL): 0 Findings: Mild bilobar prostatic hypertrophy with mildly elevated bladder neck. Tight, inflamed left UO. 3 mm stone mildly impacted at UVJ basket extracted. Mild irritation persisted at UO. L RPG after stone removed - no hydronephrosis or extravasation, persistent contrast in distal ureter to narrow UVJ and mild retention within renal pelvis Specimens: left ureteral stone Drains: 4.8Fr x 22-30 cm JJ left ureteral stent on string Incision: none Indications for Procedures: 62 year old male with uncontrolled renal colic and acute renal injury secondary to a 3 mm left ureterovesical junction stone with hydronephrosis re-presents to the ER and elects to proceed with definitive stone treatment as above after failed medical expulsive therapy. Risks were discussed including but not limited to bleeding, pain, infection, damage to surrounding structures, inability to treat the stone/place a stent, and need for additional procedures. The patient understands the stent is not permanent and needs to be removed or exchanged within 3 months to prevent encrustation, infection, invasive procedures and/or permanent renal damage. Detailed description of Procedure: After informed consent was obtained, the patient was brought to the operating room and transferred onto the operating table in supine position. Sequential compression devices were placed on bilateral lower extremities. The patient received the appropriate dose of preoperative IV antibiotics and general anesthesia LMA was induced. They were positioned in modified dorsolithotomy with the appropriate pressure points padded, prepped, and draped in the usual sterile fashion for this procedure. An operative safety timeout was performed confirming the patient's identity, laterality and procedure, and all present agreed to proceed. I began by inserting a 22 Polish rigid cystoscope with 30 degree lens into the patient's urethra and bladder without difficulty. There were no bladder tumors, lesions, stones or foreign bodies. Bilateral ureteral orifices were orthotopic and patent. I turned my attention to the left ureteral orifice and insertion of a Sensor wire was attempted, however kept buckling out. Next a semirigid uret eroscope was inserted into the inflamed left UO and was able to dislodge the UVJ stone, wire was inserted up to the renal pelvis. The ureteroscope was removed and repassed along the wire to get access to the distal ureteral stone. A 2.2 tipless nitinol basket was used to remove the stone without difficulty. Distal ureteroscopy confirmed no stones remained. Contrast was injected for retrograde pyelogram with findings as above. Due to persistent contrast and inflamed UO, decision was made to leave a stent. The wire was reinserted and backloaded through the cystoscope and 4.8Fr x 22-30cm JJ variable length ureteral stent on a string was advanced over the wire, noting adequate curl in the renal pelvis and bladder on fluoroscopic and direct visualization. The bladder was drained and inspected one final time to ensure adequate position of stent and no undue trauma to the bladder was done. The stone was sent for pathology and the cystoscope was removed. The patient tolerated the procedure well without complication. The patient was awakened from anesthesia and sent to PACU in stable condition. Plan: Discharge home with stent pain medications if stable/afebrile postop. Remove stent by the string at home in 3-4 days. Follow up in the office in 6 weeks. Other Provider present: No Post Operative care instructions: See discharge instructions Attending Doc Confirm Attending Attestation: Yes
[2023-04-14 19:57] VITALS: O2SAT 95
--- NOTE | 2023-04-15 16:08 | CM.DCFOLLOWU ---
Person spoke with:patient How are you feeling? well How is your pain? no pain Did you understand your discharge instructions? yes Do you have any questions about your discharge instructions? no Were you given any prescriptions at discharge?yes Were you able to get your prescriptions filled? yes Do you understand how to take your medications as ordered? yes Do you have any questions about your follow up appointment and do you plan to keep your follow up appointment? no questions Is there anything else that you would like to discuss? Patient appreciated the care he received here and felt [facility] was amazing, he stated nurse Cheng on the floor and another night nurse were great. Questions/Comments/Concerns/Other:
== END 2023-04-14 20:34 | disposition home or self-care (01) ==
LOC: ER 13:38 → MS 13:56
PROVIDERS: Admitting Provider Internal Medicine; Emergency Provider Emergency Medicine; PCP Specialist; Visit Provider Internal Medicine
DX: N13.2 Hydronephrosis with renal and ureteral calculous obstruction (principal); N17.9 Acute kidney failure, unspecified; Z79.82 Long term (current) use of aspirin; Z79.899 Other long term (current) drug therapy; Z87.442 Personal history of urinary calculi
CPT/HCPCS: 52332; 52352; 36415; 74018; 74420; 76775; 80053; 81001; 82365; 85025; 93005; 94761; 96365; 96366; 96375; 99285; C1874; G0378; J2704

== ENCOUNTER 2023-05-24 08:00 | Outpatient (OUT) | payer OTHER, SELFPAY ==
--- NOTE | 2023-05-24 | US_ITS ---
The [address] [address] Patient Name: DARIUS VALERA MRN: [id number] date: 1960 Sex: M Assigned Patient Location: [place] Current Patient Location: Accession/Order Number: [id number] Exam Date: 05/24/2023 08:10 Report Date: 05/24/2023 10:36 At the request of: AMITA BAUER Procedure: US renal BI US renal BI EXAM DATE: 05/24/2023 6:10 AM MDT COMPARISON: CT abdomen and pelvis without contrast 04/09/2023. Ultrasound renal 04/14/2023. INDICATION: Ureteral stone. TECHNIQUE: Real-time ultrasound scanning of the kidneys and bladder was performed by the maritime guard. Ticker Wirer static images are submitted for review. FINDINGS: Right Kidney: The right kidney measures 12.7 x 6.8 x 5.4 cm and has a volume of 241 mL. Normal echogenicity. No hydronephrosis. No shadowing calculi. No obvious contour deforming lesion or solid renal mass. Renal cortex measures 1.5 cm. Left Kidney: The left kidney measures 12.1 x 4.8 x 5.6 cm and has a volume of 167 mL. Normal echogenicity. No hydronephrosis. No shadowing calculi. No obvious contour deforming lesion or solid renal mass. Renal cortex measures 1.4 cm. Bladder: Bladder volume measures up to 771 mL with a 34 mL post void residual. Previous left UVJ stone is no longer seen. No focal or diffuse bladder wall thickening noted. Bilateral ureteral jets are visualized. US/US renal BI IMPRESSION: 1. No hydronephrosis. Bilateral ureteral jets are visualized. 2. Previous left UVJ stone is no longer identified. Electronically authenticated by: OFELIA GIBBONS Date: 05/24/2023 10:36
== END 2023-05-24 08:01 | disposition home or self-care (01) ==
PROVIDERS: Visit Provider Urology
DX: N20.1 Calculus of ureter (principal)
CPT/HCPCS: 76775

== ENCOUNTER 2023-06-07 06:31 | Outpatient (OUT) | payer OTHER, SELFPAY ==
[2023-06-08 07:07] LABS: Testosterone 471 ng/dL (264-916)
== END 2023-06-07 06:32 | disposition home or self-care (01) ==
PROVIDERS: Visit Provider Urology
DX: N52.9 Male erectile dysfunction, unspecified (principal)
CPT/HCPCS: 36415; 84403

== ENCOUNTER 2024-06-28 17:27 | Outpatient (OUT) | payer OTHER, SELFPAY ==
--- NOTE | 2024-06-28 | XR_ITS ---
The [address] [address] Patient Name: DARIUS VALERA MRN: [id number] date: 1960 Sex: M Assigned Patient Location: [facility] Current Patient Location: Accession/Order Number: [id number] Exam Date: 06/28/2024 17:55 Report Date: 06/29/2024 15:01 At the request of: LIANG KEYS Procedure: XR thoracic spine 3V EXAMINATION: XR thoracic spine 3V HISTORY: strain of thoracic back region (S29.012A) COMPARISON: No relevant comparison available. FINDINGS: BONES: Normal alignment with no acute fracture or spondylolisthesis. Mild to moderate spondylosis. Mild facet osteoarthropathy DISC SPACES: Normal. No significant disc height narrowing, subluxation, or endplate abnormality. PARASPINOUS: Negative. No paraspinous abnormality is seen. OTHER: Negative. XR/XR thoracic spine 3V IMPRESSION: Mild to moderate degenerative change Electronically authenticated by: KIRSTIE DODD Date: 06/29/2024 15:01
== END 2024-06-28 17:28 | disposition home or self-care (01) ==
PROVIDERS: PCP Physician Assistant; Visit Provider Physician Assistant
DX: S29.012A Strain of muscle and tendon of back wall of thorax, initial encounter (principal); M62.838 Other muscle spasm
CPT/HCPCS: 72072

== ENCOUNTER 2024-07-05 15:53 | Outpatient (RCR) | payer OTHER, SELFPAY | END 2024-07-30 15:42 | disposition home or self-care (01) | LOC: PT 15:53 | PROVIDERS: PCP Physician Assistant; Visit Provider Physician Assistant | DX: M62.838 Other muscle spasm (principal); S29.012D Strain of muscle and tendon of back wall of thorax, subsequent encounter | CPT/HCPCS: 97014; 97035; 97110; 97140; 97161 ==

== ENCOUNTER 2024-10-14 07:48 | Outpatient (RCR) | payer OTHER, SELFPAY | END 2024-11-16 16:08 | disposition home or self-care (01) | LOC: PT 07:48 | PROVIDERS: PCP Physician Assistant; Visit Provider Orthopaedic Surgery | DX: S83.241D Other tear of medial meniscus, current injury, right knee, subsequent encounter (principal) | CPT/HCPCS: 97110; 97140; 97161 ==

== ENCOUNTER 2025-05-09 08:39 | Outpatient (OUT) | payer MEDICARE, SELFPAY ==
--- OUTSIDE RECORDS SUMMARY | 2025-05-09 08:42 | XMS_ITS | Encounter Summary ---
Author Organization [facility] Address [address] [place] [address] Care Team Providers Care Forging Machine Operator Name Role Phone Linda Jansen Primary Care Provider [phone] Linda Jansen Unavailable [phone] Encounter Details Date Type Department Care Team (Late st Contact Info) Description 01/24/2025 Abstract [facility] [address] [facility] [address] [place] [address] Linda Jansen PA [address] [facility] [address] [place] [address] Social History Tobacco Use Types Packs/Day Years Used Date Smoking Tobacco: Never Smokeless Tobacco: Never Alcohol Use Standard Drinks/Week Comments Yes 0 (1 standard drink = 0.6 oz pure alcohol) Caffeine intake: 1-2 cups per day Humiliation, Afraid, Rape, and Kick questionnair e Answer Date Recorded Within the last year, have y ou been afraid of your partner or ex-partner? No 08/06/2023 Within the last year, have y ou been humiliated or emotionally abused in other ways by your partner or ex-partner? No Within the last year, have y ou been kicked, hit, slapped, or otherwise physically hurt by your partner or ex-partner? No 08/06/2023 Within the last year, have y ou been raped or forced to have any kind of sexual activity by your partner or ex-partner? No 08/06/2023 Social Connection and Isolat ion Panel [NHANES] Answer Date Recorded In a typical week, how many times do you talk on the phone with family, friends, or neighbors? Twice a week 08/06/2023 How often do you get togethe r with friends or relatives? More than three times a week 08/06/2023 How often do you attend chur ch or hinduism services? 1 to 4 times per year 08/06/2023 Do you belong to any clubs o r organizations such as orthodoxy groups, unions, fraternal or athletic groups, or school groups? Yes 08/06/2023 How often do you attend meet ings of the clubs or organizations you belong to? Never 08/06/2023 Are you , , di vorced, , never , or living with a partner? 08/06/2023 AUDIT-C Answer Date Recorded Q1: How often do you have a drink containing alc ohol? 2-4 times a month 08/06/2023 Q2: How many drinks containi ng alcohol do you have on a typical day when you are drinking? 1 or 2 08/06/2023 Q3: How often do you have si x or more drinks on one occasion? Never 08/06/2023 Overall Financial Resource Strain (CARDIA) Answe r Date Recorded How hard is it for you to pa y for the very basics like food, housing, medical care, and heating? Not hard at all 08/06/2023 PHQ-2 Answer Date Recorded Patient Health Questionnaire-2 Score 0 11/09/2024 [facility] Answer Date Recorded Do you feel stress - tense, restless, nervous, or anxious, or unable to sleep at night because your mind is troubled all the time - these days? Only a little 08/06/2023 Exercise Vital Sign Answer Date Recorde d On average, how many days pe r week do you engage in moderate to strenuous exercise (like a brisk walk)? 6 days 08/06/2023 On average, how many minutes do you engage in exercise at this level? 60 min 08/06/2023 Hunger Vital Sign Answer Date Recorded Within the past 12 months, y ou worried that your food would run out before you got the money to buy more. Never true 08/06/20 Within the past 12 months, t he food you bought just didn't last and you didn't have money to get more. Never true 08/06/2023 PRAPARE - Transportation Answer Date Re corded In the past 12 months, has l ack of transportation kept you from medical appointments or from getting medications? No 07/25 In the past 12 months, has l ack of transportation kept you from meetings, work, or from getting things needed for daily living? No 08/06/2023 Housing Stability Vital Sign Answer Valeriano e Recorded In the last 12 months, was t here a time when you were not able to pay the mortgage or rent on time? No 08/06/2023 In the last 12 months, how many places have you lived? 1 08/06/2023 In the last 12 months, was t here a time when you did not have a steady place to sleep or slept in a alf (including now)? No 08/06/2023 Sex and Gender Information Value Date Recorded Sex Assigned at Not on file Legal Sex Male 8:11 PM EDT Gender Identity Not on file Sexual Orientation Not on file documented as of this encounter Plan of Treatment Not on file documented as of this encounter Visit Diagnoses Not on filedocumented in this encounter Care Teams Forging Machine Operator Relationship Specialty Start Date End Date Linda Jansen PA [address] [facility] [address] [place] [address] PCP - General Family Medicine 08/06/23 Linda Jansen PA [address] [facility] [address] [place] [address] PCP - Medical [place] [employer] 02/22/23 04/25/25 documented as of this encounter
--- OUTSIDE RECORDS SUMMARY | 2025-05-09 08:42 | XMS_ITS | Encounter Summary ---
Author Organization [facility] Address [address] [place] [address] Care Team Providers Care Otologist Name Role Phone Linda Jansen Primary Care Provider [phone] Linda Jansen Unavailable [phone] Encounter Details Date Type Department Care Team (Late st Contact Info) Description 08/07/2023 Orders Only [facility] [address] [facility] [address] [place] [id number] A, Unknown Practice [address] [place] [address] Social History Tobacco Use Types Packs/Day Years [...] often do you attend chur ch or yazidism services? 1 to 4 times per year 08/06/2023 Do you belong to any clubs o r organizations such as oriental orthodox groups, unions, fraternal or athletic groups, or [...] and heating? Not hard at all 08/06/2023 [facility] - Occupational Stress Questionnaire Answer Date Recorded [...] money to buy more. Never true 08/06/20 23 Within the past 12 months, t he [...] place to sleep or slept in a nursing home (including now)? No 08/06/2023 Sex and Gender Information Value Date Recorded Sex Assigned at Not on file Legal Sex Male 8:11 PM EDT Gender Identity Not on file Sexual Orientation Not on file documented as of this encounter Plan of Treatment Not on file documented as of this encounter Procedures Procedure Name Priority Date/Time Associated Diagnosis Comments COLONOSCOPY DIAGNOSTIC Routine 10/02/2018 2:27 PM EST documented in this encounter Results * COLONOSCOPY DIAGNOSTIC (10/02/2018 2:27 PM EST) Anatomical Region Laterality Modality Radiographic Niki ging us Unknown Practice A IMG XR PROCEDURES Final Resul t documented in this encounter Visit Diagnoses Not on filedocumented in this encounter Care Teams Otologist Relationship Specialty Start Date End Date Linda Jansen PA [address] [facility] [address] [place] [address] PCP - General Family Medicine 08/06/23 Linda Jansen PA [address] [facility] [address] [place] [address] PCP - Medical [place] [employer] 02/22/23 04/25/25 documented as of this encounter
--- OUTSIDE RECORDS SUMMARY | 2025-05-09 08:42 | XMS_ITS | Encounter Summary ---
Author Organization [facility] Address [address] [place] [address] Care Team Providers Care Mission Planner Name Role Phone Linda Jansen Primary Care Provider [phone] Linda Jansen Unavailable [phone] Encounter Details Date Type Department Care Team (Late st Contact Info) Description 02/12/2024 Abstract [facility] [address] [facility] [address] [place] [address] Linda Jansen PA [address] [facility] [address] [place] [address] Social History Tobacco Use Types Packs/Day Years [...] often do you attend chur ch or episcopal services? 1 to 4 times per year 08/06/2023 Do you belong to any clubs o r organizations such as episcopalian groups, unions, fraternal or athletic groups, or [...] and heating? Not hard at all 08/06/2023 [facility]ational [facility] Questionnaire Answer Date [...] place to sleep or slept in a chcf (including now)? No 08/06/2023 Sex and Gender Information Value Date Recorded Sex Assigned at Not on file Legal Sex Male 8:11 PM EDT Gender Identity Not on file Sexual Orientation Not on file documented as of this encounter Plan of Treatment Not on file documented as of this encounter Visit Diagnoses Not on filedocumented in this encounter Care Teams Mission Planner Relationship Specialty Start Date End Date Linda Jansen PA [address] [facility] [address] [place] [address] PCP - General Family Medicine 08/06/23 Linda Jansen PA [address] [facility] [address] [place] [address] PCP - Medical [place] [employer] 02/22/23 04/25/25 documented as of this encounter
--- OUTSIDE RECORDS SUMMARY | 2025-05-09 08:42 | XMS_ITS | Encounter Summary ---
Author Organization [facility] Address [address] [place] [address] Care Team Providers Care Cashier Greeter Name Role Phone Linda Jansen Primary Care Provider [phone] Linda Jansen Unavailable [phone] Encounter Details Date Type Department Care Team (Late st Contact Info) Description 02/10/2025 External Result Encounter [facility] External Department Unsolicited Christian Carlos, DO [address] [place] [address] Social History Tobacco Use Types Packs/Day Years [...] often do you attend chur ch or anabaptist services? 1 to 4 times per year 08/06/2023 Do you belong to any clubs o r organizations such as pentecostal groups, unions, fraternal or athletic groups, or [...] Recorded Patient Health Questionnaire-2 Score 0 11/09/2024 [facility] Questionnaire Answer Date Recorded [...] place to sleep or slept in a fpc (including now)? No 08/06/2023 Sex and Gender Information Value Date Recorded Sex Assigned at Not on file Legal Sex Male 8:11 PM EDT Gender Identity Not on file Sexual Orientation Not on file documented as of this encounter Plan of Treatment Not on file documented as of this encounter Procedures Procedure Name Priority Date/Time Associated Diagnosis Comments BIOPSY BONE MARROW 02/10/2025 11 :02 AM EDT documented in this encounter Results * Biopsy bone marrow (02/10/2025 11:02 AM EDT) 02/10/2025 11:0 2 AM EDT Impressions [facility] - 02/14/2025 9:[address]-guided bone marrow biopsy. Impression dictated by: Garcia Vanegas Jr., D.O. 02/10/2025 11:08 AM Dictation Location: [place] [address] Transcribed By: [facility] 02/10/25 1108 Dictated By: Garcia Vanegas Jr, DO 02/10/25 1102 Signed By: <Electronically signed by Garcia Vanegas Jr, DO in OV> 02/10/25 1108 Narrative [facility] - 02/14/2025 9:03 AM EDT [facility] Main [address] [address] [address] Scan Report Signed Patient: Yuri Shine MR#: [id number] 10 : 1960 Acct:[id number] Age/Sex: 64 / M ADM Date: 02/10/25 Loc: CT Room: Type: [facility] Attending Dr: Christian Carlos II DO Copies to: Christian Carlos II, DO Ordering Provider: Christian Carlos II, DO Date of Service: 02/10/25 CT/CT guided bone marrow bx/aspir: D72.820 - Lymphocytosis (symptomatic) CT GUIDED BONE MARROW BIOPSY OF THE RIGHT ILIAC BONE: CLINICAL HISTORY: Lymphocytosis FINDINGS: After questions were answered, informed consent was obtained. The patient was placed prone on the CT table and the right iliac bone was selected for biopsy. The skin over the pelvis was prepped and draped in normal sterile fashion. 1% lidocaine was utilized for local anesthesia. Utilizing CT guidance, an 11-gauge [employer] biopsy needle was advanced into the right iliac bone. 12mL of bone marrow was aspirated and given to pathology. After the sample was deemed adequate by pathology, a core biopsy was obtained and needle was withdrawn. Hemostasis was achieved. Bandage was applied. The patient tolerated procedure well without immediate complication. Please note that the patient was monitored throughout the procedure by nursing personnel. This CT exam was performed using one or more following dose reduction techniques: Automated exposure control, adjustment of the mA and/or kV according to patient size, or use of iterative reconstruction technique. CT/CT guided bone marrow bx/aspir Procedure Note Garcia Vanegas Jr., DO - 03/03/2025 [facility] Main Reader [address] [place] [address] CT Scan Report Signed Patient: Yuri Shine SMR#: [id number] 10 : 1960Acct:[id number] Age/Sex: 64 / MADM Date: 02/10/25 Loc: CT Room:Type: [facility] Attending Dr: Christian Carlos II DO Copies to: Christian Carlos II, DO Ordering Provider: Christian Carlos II, DO Date of Service: 02/10/25 CT/CT guided bone marrow bx/aspir: D72.820 - Lymphocytosis (symptomatic) CT GUIDED BONE MARROW BIOPSY OF THE RIGHT ILIAC BONE: CLINICAL HISTORY: Lymphocytosis FINDINGS: After questions were answered, informed consent was obtained. The patientwas placed prone on the CT table and the right iliac bone was selected for biopsy. The skin over thepelvis was prepped and draped in normal sterile fashion. 1% lidocaine was utilized for localanesthesia. Utilizing CT guidance, an 11-gauge OnCPerfect Price biopsy needle was advanced into the rightiliac bone. 12mL of bone marrow was aspirated and given to pathology. After the sample was deemedadequate by pathology, a core biopsy was obtained and needle was withdrawn. Hemostasis wasachieved. Bandage was applied. The patient tolerated procedure well without immediate complication. Please note that the patient was monitored throughout the procedure bynursing personnel. This CT exam was performed using one or more following dose reductiontechniques: Automated exposure control, adjustment of the mA and/or kV according to patient size, or useof iterative reconstruction technique. CT/CT guided bone marrow bx/aspir IMPRESSION: Successful CT-guided bone marrow biopsy. Impression dictated by: Garcia Vanegas Jr., Tay 02/10/2025 11:08 AM Dictation Location: [place] [address] Transcribed By: [facility] 02/10/25 1108 Dictated By: Garcia Vanegas Jr, DO 02/10/25 1102 Signed By: <Electronically signed by Garcia Vanegas Jr DO inOV> 02/10/25 1108 us Christian Carlos DO IN CLINIC/BEDSIDE ORDERAB LES Edited Result - Final [address] [place] [address], documented in this encounter Visit Diagnoses Not on filedocumented in this encounter Care Teams Cashier Greeter Relationship Specialty Start Date End Date Linda Jansen PA [address] [facility] [address] [place] [address] PCP - General Family Medicine 08/06/23 Linda Jansen PA [address] [place], [place] [id number] PCP - Medical [place] [employer] 02/22/23 04/25/25 documented as of this encounter
--- OUTSIDE RECORDS SUMMARY | 2025-05-09 08:42 | XMS_ITS | Encounter Summary ---
Author Organization [facility] Address [address] [place] [address] Care Team Providers Care Peel Oven Tender Name Role Phone Linda Jansen Primary Care Provider [phone] Linda Jansen Unavailable [phone] Encounter Details Date Type Department Care Team (Late st Contact Info) Description 01/27/2024 Abstract [facility] [address] [facility] [address] [place] [address] Linda Jansen PA [address] [facility] [address] [place] [address] Social History Tobacco Use Types Packs/Day Years [...] often do you attend chur ch or sabianist services? 1 to 4 times per year 08/06/2023 Do you belong to any clubs o r organizations such as restorationism groups, unions, fraternal or athletic groups, or [...] and heating? Not hard at all 08/06/2023 [facility] - Occupational Stress Questionnaire Answer Date [...] place to sleep or slept in a halfway (including now)? No 08/06/2023 Sex and Gender Information Value Date Recorded Sex Assigned at Not on file Legal Sex Male 8:11 PM EDT Gender Identity Not on file Sexual Orientation Not on file documented as of this encounter Plan of Treatment Not on file documented as of this encounter Visit Diagnoses Not on filedocumented in this encounter Care Teams Peel Oven Tender Relationship Specialty Start Date End Date Linda Jansen PA [address] [facility] [address] [place] [address] PCP - General Family Medicine 08/06/23 Linda Jansen PA [address] [facility] [address] [place] [address] PCP - Medical [place] [employer] 02/22/23 04/25/25 documented as of this encounter
--- OUTSIDE RECORDS SUMMARY | 2025-05-09 08:42 | XMS_ITS | Encounter Summary ---
Author Organization [facility] Address [address] [place] [address] Care Team Providers Care Spinning Mule Tender Name Role Phone Linda Jansen Primary Care Provider [phone] Linda Jansen Unavailable [phone] Encounter Details Date Type Department Care Team (Late st Contact Info) Description 11/28/2023 Orders Only [facility] [place] [facility] [address] [place] [address] [place] [id number] Unallocated, Noms Provider, [address] [place], [place] [id number] Social History Tobacco Use Types Packs/Day Years [...] often do you attend chur ch or hoahaoism services? 1 to 4 times per year 08/06/2023 Do you belong to any clubs o r organizations such as rastafarian groups, unions, fraternal or athletic groups, or [...] and heating? Not hard at all 08/06/2023 [facility] - Occupational Stress Questionnaire Answer Date [...] Procedure Name Priority Date/Time Associated Diagnosis Comments SCANNED LABS Routine 11/28/2023 10:29 AM EDT documented in this encounter Results * SCANNED LABS (11/28/2023 10:29 AM EDT) us Noms Provider Unallocated MD LAB CHG PERFORMABLE S Final Result documented in this encounter Visit Diagnoses Not on filedocumented in this encounter Care Teams Spinning Mule Tender Relationship Specialty Start Date End Date Linda Jansen PA [address] [place] [address] [place] [address] PCP - General Family Medicine 08/06/23 Linda Jansen PA [address] [place] [address] [place] [address] PCP - Medical [place] [employer] 02/22/23 04/25/25 documented as of this encounter
--- OUTSIDE RECORDS SUMMARY | 2025-05-09 08:42 | XMS_ITS | Encounter Summary ---
Author Organization [facility] Address [address] [place] [address] Care Team Providers Care Shingles Roofer Helper Name Role Phone Linda Jansen Primary Care Provider [phone] Linda Jansen Unavailable [phone] Encounter Details Date Type Department Care Team (Late st Contact Info) Description 08/08/2023 Abstract [facility] [address] [facility] 110 [place] [address] Linda Jansen PA [address] [facility] 110 [place] [address] Social History Tobacco Use Types Packs/Day Years [...] often do you attend chur ch or confucianism services? 1 to 4 times per year 08/06/2023 Do you belong to any clubs o r organizations such as mormonism groups, unions, fraternal or athletic groups, or [...] and heating? Not hard at all 08/06/2023 [facility] [place] [facility] - Occupational Stress Questionnaire Answer Date [...] place to sleep or slept in a penitentiary (including now)? No 08/06/2023 Sex and Gender Information Value Date Recorded Sex Assigned at Not on file Legal Sex Male 8:11 PM EDT Gender Identity Not on file Sexual Orientation Not on file documented as of this encounter Plan of Treatment Not on file documented as of this encounter Visit Diagnoses Not on filedocumented in this encounter Care Teams Shingles Roofer Helper Relationship Specialty Start Date End Date Linda Jansen PA [address] [facility] 110 [place] [address] PCP - General Family Medicine 08/06/23 Linda Jansen PA [address] [facility] 110 [place] [address] PCP - Medical [place] [employer] 02/22/23 04/25/25 documented as of this encounter
--- OUTSIDE RECORDS SUMMARY | 2025-05-09 08:43 | XMS_ITS | Encounter Summary ---
Author Organization [facility] Address [address] [place] [address] Care Team Providers Care Spray Stainer Name Role Phone Penny Duran MD Unavailable [phone] Source Comments In the event this information is protected by the Federal Confidentiality of Alcohol and Drug AbusePatient Records regulations: The Federal rules restrict any use of the information to criminally investigate or prosecute any alcohol or drug abuse patient.[facility] Encounter Details Date Type Department Care Team (Late st Contact Info) Description 03/02/2024 Get Medical Advice Cardiology [address] [place] [address] [place] [address] [place], [place] [id number] Fatigue Social History Tobacco Use Types Packs/Day Years Used Date Smoking Tobacco: Never Smokeless Tobacco: Never Alcohol Use Standard Drinks/Week Comments Not Currently 0 (1 standard drink = 0.6 oz pur e alcohol) Area Deprivation Index Answer Date Francis rded National Score (1-100), lower number is lower ri sk 87 12/25/2022 State Score (1-10), lower number is lower risk 8 12/25/2022 Data from: https://www.neighborhoodatlas.[facility]/. Last address used for calculation [address] [place] [address] 12/25/2022 Sex and Gender Information Value Date Recorded Sex Assigned at Not on file Legal Sex Male 12:00 PM EDT Gender Identity Not on file Sexual Orientation Not on file documented as of this encounter Functional Status * Are you deaf or do you have serious difficulty hearing? Answer Date of Assessment Author No 12/04/2021 11:08 AM EDT Irene Tidwell RN * Are you blind or do you have serious difficulty seeing, even when wearing glasses? Answer Date of Assessment Author No 12/04/2021 11:08 AM EDT Irene Tidwell RN * Do you have serious difficulty walking or climbing stairs? Answer Date of Assessment Author No 12/04/2021 11:08 AM EDT Irene Tidwell RN * Do you have difficulty dressing or bathing? Answer Date of Assessment Author No 12/04/2021 11:08 AM EDT Irene Tidwell RN * Because of a physical, mental, or emotional condition, do you have difficulty doing errands alone such as visiting a doctor's office or shopping? Answer Date of Assessment Author No 12/04/2021 11:08 AM EDT Irene Tidwell RN documented as of this encounter Mental Status * Because of a physical, mental, or emotional condition, do you have serious difficulty concentrating, remembering, or making decisions? Answer Entry Date Author No 12/04/2021 11:08 AM EDT Irene Tidwell RN documented in this encounter Plan of Treatment Upcoming Encounters Date Type Department Care Team (Late st Contact Info) Description 06/13/2025 10:30 AM EDT Office Visit Cardiology [address] [place] [address] PAF (paroxysmal atrial fibrillation) (HCC) [I48.0] 04/05/2026 8:00 AM EDT Office Visit Cardiology [address] [place] [address] [place] [address] [place] [address] yearly follow up documented as of this encounter Visit Diagnoses Not on filedocumented in this encounter Care Teams Spray Stainer Relationship Specialty [place] [address] [place], [place] [id number] Primary Staff Physician Cardiology 03/22/22 documented as of this encounter
--- OUTSIDE RECORDS SUMMARY | 2025-05-09 08:43 | XMS_ITS | Encounter Summary ---
Author Organization [facility] Address [address] [place] [address] Care Team Providers Care Palliative Care Specialist Name Role Phone Linda Jansen Primary Care Provider [phone] Linda Jansen Unavailable [phone] Encounter Details Date Type Department Care Team (Late st Contact Info) Description 03/03/2025 Abstract [facility] [place] [facility] [address] [facility] 110 [place] [address] Linda Jansen PA [address] [facility] 110 [place] [address] Social History Tobacco Use Types Packs/Day Years [...] often do you attend chur ch or buddhist services? 1 to 4 times per year 08/06/2023 Do you belong to any clubs o r organizations such as hinduism groups, unions, fraternal or athletic groups, or [...] Date Recorded Patient Health Questionnaire-2 Score 0 03/01/2025 [facility] Questionnaire Answer Date Recorded [...] on filedocumented in this encounter Care Teams Palliative Care Specialist Relationship Specialty Start Date End Date Linda Jansen PA [address] [facility] 110 [place] [address] PCP - General Family Medicine 08/06/23 Linda Jansen PA [address] [place] [address] [place] [address] PCP - Medical [place] [employer] 02/22/23 04/25/25 documented as of this encounter
--- OUTSIDE RECORDS SUMMARY | 2025-05-09 08:43 | XMS_ITS | Encounter Summary ---
Author Organization [facility] Address [address] [place] [address] Care Team Providers Care Textile Dyer Name Role Phone Penny Duran MD [facility] [phone] Source Comments In the event this information is protected by the Federal Confidentiality of Alcohol and Drug AbusePatient Records regulations: The Federal rules restrict any use of the information to criminally investigate or prosecute any alcohol or drug abuse patient.[facility] Encounter Details Date Type Department Care Team (Late st Contact Info) Description 07/05/2024 Patient Msg Cardiology [address] [place] [phone] Provider, [facility] appointment Social History Tobacco Use Types Packs/Day Years Used Date Smoking Tobacco: Never Smokeless Tobacco: Never Alcohol Use Standard Drinks/Week Comments Not Currently 0 (1 standard drink = 0.6 oz pur e alcohol) Area Deprivation Index Answer Date Francis rded National Score (1-100), lower number is lower ri sk 87 12/25/2022 State Score (1-10), lower number is lower risk 8 12/25/2022 Data from: https://www.neighborhoodatlas.medicine.[facility].edu/. Last address used for calculation [address] [place] [address] 12/25/2022 Sex and Gender Information Value Date [...] 10:30 AM EDT Office Visit Cardiology [address] [place] [address] PAF (paroxysmal atrial fibrillation) ([facility]) [I48.0] 04/05/2026 8:00 AM EDT Office Visit Cardiology [address] [place] [address] [place] [address] [place] [address] yearly follow up documented as of this encounter Visit Diagnoses Not on filedocumented in this encounter Care Teams Textile Dyer Relationship Specialty [place] [address] [place] [address] Primary Staff Physician Cardiology 03/22/22 documented as of this encounter
--- OUTSIDE RECORDS SUMMARY | 2025-05-09 08:43 | XMS_ITS | Clinical Summary ---
Author Organization [employer] [facility] Address [id number] [address] [place] [address] Care Team Providers Care Pocket Setter Lockstitch Name Role Phone Unavailable Primary Care Provider Unavailabl e Social History Tobacco Use Types Packs/Day Years Used Date Smoking Tobacco: Never Assessed Childcare Answer Date Recorded Childcare Unknown 02/03/2019 Employment Answer Date Recorded Employment Unknown 02/03/2019 Sex and Gender Information Value Date Recorded Sex Assigned at Not on file Legal Sex Male 11:55 AM EDT Gender Identity Not on file Sexual Orientation Not on file Plan of Treatment Health Maintenance Due Date Last Done Comments Depression Screening 1971 Tobacco Screening 1971 Adult BMI Screening 1977 DTaP,Tdap and Td Vaccines (1 - Tdap) 1978 Zoster (Shingles) Vaccine (1 of 2) 2009 Fall Risk Screening 2024 Influenza Vaccine 04/25/2025 06/10/2019, , 06/10/2018 Medical Devices Not on file Insurance [employer]
--- OUTSIDE RECORDS SUMMARY | 2025-05-09 08:43 | XMS_ITS | Encounter Summary ---
Author Organization [facility] Address [address] [place] [address] Care Team Providers Care Clean Energy Policy Analyst Name Role Phone Penny Duran MD [facility] [phone] Source Comments In the event this information is protected by the Federal Confidentiality of Alcohol and Drug AbusePatient Records regulations: The Federal rules restrict any use of the information to criminally investigate or prosecute any alcohol or drug abuse patient.[facility] Encounter Details Date Type Department Care Team (Late st Contact Info) Description 03/27/2022 Patient Msg Cardiology [address] [place], [place] [id number] Provider, [place] 08/[address] Sena Social History Tobacco Use Types Packs/Day Years Used Date Smoking Tobacco: Never Smokeless Tobacco: Never Alcohol Use Standard Drinks/Week Comments Not Currently 0 (1 standard drink = 0.6 oz pur e alcohol) Area Deprivation Index Answer Date Francis rded National Score (1-100), lower number is lower ri 74 03/22/2022 State Score (1-10), lower number is lower risk N ot on file 03/22/2022 Data from: https://www.neighborhoodatlas.medicine.[facility].edu/. Last address used for calculation [address] [place] [address] 03/22/2022 Sex and Gender Information Value Date Recorded Sex Assigned at Not on file Legal Sex Male 12:00 PM EDT Gender Identity Not on file Sexual Orientation Not on file COVID-19 Exposure Response Date Recorded In the last 10 days, have yo u been in contact with someone who was confirmed or suspected to have Coronavirus/COVID-19? No / Unsure 03/22/2022 8:47 AM EDT documented as of this encounter Functional Status [...] 10:30 AM EDT Office Visit Cardiology [address] [place] [address] PAF (paroxysmal atrial fibrillation) (HCC) [I48.0] 04/05/2026 8:00 AM EDT Office Visit Cardiology [address] [place] [address] [place] [address] [place], [place] [phone] yearly follow up documented as of this encounter Visit Diagnoses Not on filedocumented in this encounter Care Teams Clean Energy Policy Analyst Relationship Specialty [place] [address] [place], [place] [phone] Primary Staff Physician Cardiology 03/22/22 documented as of this encounter
--- OUTSIDE RECORDS SUMMARY | 2025-05-09 08:43 | XMS_ITS | Encounter Summary ---
Author Organization [facility] Address [address] [facility] [place] [address] Care Team Providers Care Mail Inserter Name Role Phone Linda aJnsen Primary Care Provider [phone] Linda Jansen Unavailable [phone] Encounter Details Date Type Department Care Team (Late st Contact Info) Description 03/21/2025 Results [facility] [address] [facility] 110 [place] [phone] Linda Jansen PA [address] [facility] 110 [place] [address] TSH W/REFLEX TO FT4, Hemoglobin A1c, Lipid panel, Additional followed-up results: 2 Social History Tobacco Use Types Packs/Day Years [...] 08/06/2023 How often do you attend chur or alevism services? 1 to 4 times per year 08/06/2023 Do you belong to any clubs o r organizations such as mandaeism groups, unions, fraternal or athletic groups, or [...] Recorded Patient Health Questionnaire-2 Score 0 03/01/2025 [facility] - Occupational Stress [...] place to sleep or slept in a prison (including now)? No 08/06/2023 Sex and Gender Information Value Date Recorded Sex Assigned at Not on file Legal Sex Male 8:11 PM EDT Gender Identity Not on file Sexual Orientation Not on file documented as of this encounter Plan of Treatment Not on file documented as of this encounter Visit Diagnoses Not on filedocumented in this encounter Care Teams Mail Inserter Relationship Specialty Start Date End Date Linda Jansen PA [address] [facility] [address] [place] [address] PCP - General Family Medicine 08/06/23 Linda Jansen PA [address] [facility] [address] [place] [address] PCP - Medical [place] [employer] 02/22/23 04/25/25 documented as of this encounter
--- OUTSIDE RECORDS SUMMARY | 2025-05-09 08:43 | XMS_ITS | Encounter Summary ---
Author Organization [facility] Address [address] [place] [address] Care Team Providers Care Ply Bander Name Role Phone Penny Duran MD [facility] [phone] Source Comments In the event this information is protected by the Federal Confidentiality of Alcohol and Drug AbusePatient Records regulations: The Federal rules restrict any use of the information to criminally investigate or prosecute any alcohol or drug abuse patient.[facility] Encounter Details Date Type Department Care Team (Late st Contact Info) Description 09/27/2021 Get Medical Advice Cardiology [address] [place] [phone] [place] [address] [place] [address] Sena Social History Tobacco Use Types Packs/Day Years Used Date Smoking Tobacco: Never Sex and Gender Information Value Date Recorded Sex Assigned at Not on file Legal Sex Male 12:00 PM EDT Gender Identity Not on file Sexual Orientation Not on file COVID-19 Exposure Response Date Recorded In the last month, have you been in contact with someone who was confirmed or suspected to have Coronavirus / COVID-19? No / Unsure 09/19/2021 9:21 AM EST documented as of this encounter Plan of Treatment Upcoming Encounters Date Type Department Care Team (Late st Contact Info) Description 06/13/2025 10:30 AM EDT Office Visit Cardiology [address] [place] [address] PAF (paroxysmal atrial fibrillation) (HCC) [I48.0] 04/05/2026 8:00 AM EDT Office Visit Cardiology [address] [place] [address] [place] [address] [place] [address] yearly follow up documented as of this encounter Visit Diagnoses Not on filedocumented in this encounter Care Teams Ply Bander Relationship Specialty [place] [address] [place] [address] Primary Staff Physician Cardiology 03/22/22 documented as of this encounter
--- OUTSIDE RECORDS SUMMARY | 2025-05-09 08:43 | XMS_ITS | Clinical Summary ---
Author Organization [facility] Address [address] [place] [address] Phone Care Team Providers Care Exercise Equipment Specialist Name Role Phone Vivien Ye MD Primary Care Provider Social History Tobacco Use Types Packs/Day Years Used Date Smoking Tobacco: Never Assessed Sex and Gender Information Value Date Recorded Sex Assigned at Not on file Legal Sex Male 8:47 AM EST Gender Identity Not on file Sexual Orientation Not on file Last Filed Vital Signs Vital Sign Reading Time Taken Comments Blood Pressure 144/84 09/12/2021 2:04 PM EST Pulse 95 09/12/2021 2:04 PM EST Temperature - - Respiratory Rate - - Oxygen Saturation - - Inhaled Oxygen Concentration - - Weight 92.1 kg (203 lb) 09/12/2021 2:04 PM EST Height 182.9 cm (6') 09/12/2021 2:04 PM EST Body Mass Index 27.53 09/12/2021 2:04 PM EST Plan of Treatment Not on file Care Teams Exercise Equipment Specialist Relationship Specialty Start Date End Date Vivien Ye MD [address] [place] [address] PCP - General 03/22/20
--- OUTSIDE RECORDS SUMMARY | 2025-05-09 08:43 | XMS_ITS | Encounter Summary ---
Author Organization [facility] Address [address] [place] [address] Care Team Providers Care Rivet Bucker Name Role Phone Penny Duran MD [facility] [phone] Source Comments In the event this information is protected by the Federal Confidentiality of Alcohol and Drug AbusePatient Records regulations: The Federal rules restrict any use of the information to criminally investigate or prosecute any alcohol or drug abuse patient.[facility] Encounter Details Date Type Department Care Team (Late st Contact Info) Description 04/02/2024 Get Medical Advice Cardiology [address] [facility] [place] [address] Hiren Sena MD [address] [place] [address] [place] [address] Follow up appt Social History Tobacco Use Types Packs/Day Years Used Date Smoking Tobacco: Never Smokeless Tobacco: Never Alcohol Use Standard Drinks/Week Comments Not Currently 0 (1 standard drink = 0.6 oz pur e alcohol) Area Deprivation Index Answer Date Francis rded National Score (1-100), lower number is lower ri sk 87 12/25/2022 State Score (1-10), lower number is lower risk 8 12/25/2022 Data from: https://www.neighborhoodatlas.[facility]/. Last address used for calculation [address] [place] [address] 12/25/2022 Sex and Gender Information Value Date [...] 10:30 AM EDT Office Visit [facility] [address] [facility] [address] PAF (paroxysmal atrial fibrillation) (HCC) [I48.0] 04/05/2026 8:00 AM EDT Office Visit Cardiology [address] [place] [address] [place] [address] [place] [address] yearly follow up documented as of this encounter Visit Diagnoses Not on filedocumented in this encounter Care Teams Rivet Bucker Relationship Specialty [place] [address] [place], [place] [phone] Primary Staff Physician Cardiology 03/22/22 documented as of this encounter
--- OUTSIDE RECORDS SUMMARY | 2025-05-09 08:43 | XMS_ITS | Clinical Summary ---
Author Organization [facility] Healthcare Address [address] [place] [address] Care Team Providers Care Budget Director Name Role Phone Linda Jansen Primary Care Provider Allergies No known active allergies Medications NIFEdipine CC (Adalat CC) 30 MG 24 hr tablet Take 30 mg by mouth in the morning. Take before meals. Do not crush, chew, or split. Active doxazosin (Cardura) 4 MG tablet Take 1 tablet by mouth at bedtime 3 Active nebivolol (Bystolic) 5 MG tablet Take 5 mg by mouth Daily Active sildenafil (Viagra) 100 MG tablet Take 100 mg by mouth Daily as needed for erectile dysfunction Active cholecalciferol (Vitamin D-3) 25 MCG tablet Take 25 mcg by mouth Daily Active Ascorbic Acid (vitamin C) 250 MG tablet Take 250 mg by mouth Daily Active b complex vitamins capsule Take 1 capsule by mouth Daily Active valsartan (Diovan) 320 MG tabletIndication s:Primary hypertension TAKE 1 TABLET BY MOUTH EVERY DAY 90 tablet 1 Active Active Problems Problem Noted Date Diagnosed Date Primary osteoarthritis, unspecified ankle and fo ot 03/01/2025 History of colon polyps 05/21/2024 Arteriosclerotic vascular disease 02/09/2024 Erectile dysfunction 02/09/2024 Lung nodule 02/09/2024 History of nephrolithiasis 02/09/2024 History of COVID-19 02/09/2024 Other thrombophilia ([facility]) 02/09/2024 Thoracic aortic ectasia 02/09/2024 Lymphocytosis 01/02/2024 Primary hypertension 08/05/2023 Sleep apnea 08/05/2023 PONV (postoperative nausea and vomiting) 022 Resolved Problems Problem Noted Date Diagnosed Date Resolved Date Cardiomyopathy 02/09/2024 03/01/2025 Dyspnea 02/09/2024 06/09/2024 Screening for colorectal cancer 02/09/2024 02/09/2024 Anticoagulated 02/09/2024 03/01/2025 Ureteral stone 02/09/2024 02/09/2024 COVID-19 08/05/2023 02/09/2024 Mixed hyperlipidemia 08/05/2023 024 Atrial fibrillation 08/05/2023 06/09/20 24 Hydronephrosis 04/14/2023 02/09/2024 Kidney stone 04/14/2023 02/09/2024 Encounters Date Type Department Care Team Description 03/23/2025 Refill [facility] Kimberly [facility] [address] [facility] [address] [place] [address] Linda Jansen PA Primary hypertension 03/21/2025 Results Follow-Up NOMS Kimberly Rosen [facility] [address] [facility] [address] [place] [address] Linda Jansen PA TSH W/REFLEX TO FT4, Hemoglobin A1c, Lipid panel, Additional followed-up results: 2 03/17/2025 Telephone NOMS Kimberly [facility] [address] [facility] [address] [place] [address] Linda Jansen PA 03/14/2025 Abstract NOMS Kimberly Rosen [facility] [address] [facility] [address] [place] [address] Linda Jansen PA 03/03/2025 Abstract NOMS Kimberly [facility] [address] [facility] [address] [place] [address] Linda Jansen PA 03/01/2025 9:30 AM EDT Office Visit NOMS Kimberly [facility] [address] [facility] [address] [place] [address] Linda Jansen PA Wellness examination (Primary Dx); Muscle cramping; Primary hypertension ; Obstructive sleep apnea syndrome; Lymphocytosis; Arteriosclerotic vascular disease; Erectile dysfunction, unspecified erectile dysfunction type; Lung nodule; History of nephrolithiasis; History of COVID-19; Other thrombophilia ([facility]-HCC); Thoracic aortic ectasia; History of colon polyps; PONV (postoperative nausea and vomiting); IFG (impaired fasting glucose); Screening for malignant neoplasm of prostate 03/01/2025 Bamboo flowsheet NOM[facility] [address] [place] [address] Linda Jansen PA 03/01/2025 Travel 02/21/2025 Abstract [facility] [address] [place] [address] Linda Jansen PA 02/10/2025 External Result Encounter NOMS External Department Unsolicited Christian Carlos, DO 02/10/2025 External Result Encounter NOMS External Department Unsolicited Christian Carlos, DO 02/10/2025 External Result Encounter NOMS External Department Unsolicited Christian Carlos, DO 02/10/2025 External Result Encounter NOMS External Department Unsolicited Christian Carlos, DO 02/10/2025 External Result Encounter NOMS External Department Unsolicited Christian Carlos, DO 02/10/2025 External Result Encounter NOMS External Department Unsolicited Christian Carlos, DO from Last 3 Months Immunizations Immunization Administration Dates Next Due Hep B, adult 01/29/2005,08/28/2004,07/24/2004 Influenza, injectable, quadr ivalent, preservative free 07/20/2022,06/10/2019,06/10/2018 Influenza, seasonal, injectable 05/25/2019 Family History Medical History Relation Name Comments Cancer Mother Merry Shine Relation Name Status Comments Mother Merry Shine Social History Tobacco Use Types Packs/Day Years Used Date Smoking Tobacco: Never Smokeless Tobacco: Never Tobacco Cessation:Counseling Given: Not Answered Alcohol Use Standard Drinks/Week Comments Yes 0 [...] How often do you attend chur or temple services? 1 to 4 times per year 08/06/2023 Do you belong to any clubs o r organizations such as mu-ism groups, unions, fraternal or athletic groups, or [...] Recorded Patient Health Questionnaire-2 Score 0 03/01/2025 [facility] [place] of Occupat ional Health - Occupational Stress [...] place to sleep or slept in a snf (including now)? No 08/06/2023 Sex and Gender Information Value Date Recorded Sex Assigned at Not on file Legal Sex Male 8:11 PM EDT Gender Identity Not on file Sexual Orientation Not on file Last Filed Vital Signs Vital Sign Reading Time Taken Comments Blood Pressure 132/84 03/01/2025 9:26 AM EDT Pulse 72 03/01/2025 9:26 AM EDT Temperature 37.2 C (98.9 F) 11/09/2024 10:32 AM EDT Respiratory Rate 16 03/01/2025 9:26 AM EDT Oxygen Saturation 98% 03/01/2025 9:26 AM EDT Inhaled Oxygen Concentration - - Weight 90.4 kg (199 lb 6.4 oz) 03/01/2025 9:26 A M EDT Height 182.9 cm (6') 03/01/2025 9:26 AM EDT Body Mass Index 27.04 03/01/2025 9:26 AM EDT Plan of Treatment Health Maintenance Due Date Last Done Comments CT Colonography 1959 FIT-DNA 1959 FIT 1960 FOBT 1960 Sigmoidoscopy 1960 Pneumococcal Vaccine: 65+ Ye ars (1 of 1 - PCV) 2009 Influenza Vaccine (#1) 2025 2, 06/10/2019, 05/25/2019, Additional history exists Colonoscopy 10/02/2028 10/02/2018, 10/02/2018 Colorectal Cancer Screening 10/02/2028 Procedures Procedure Name Priority Date/Time Associated Diagnosis Comments PSA, TOTAL Routine 03/18/2025 8:26 AM EDT Wellness examination Screening for malignant neoplasm of prostate VITAMIN D 25 HYDROXY TOTAL Routine 03/18/2025 8:26 AM EDT Wellness examination Muscle cramping LIPID PANEL Routine 03/18/2025 8:26 AM EDT Wellness examination Primary hypertension HEMOGLOBIN A1C Routine 03/18/2025 8:26 AM EDT Muscle cramping Wellness examination IFG (impaired fasting glucose) TSH W/REFLEX TO FT4 Routine 03/18/2025 8 :26 AM EDT Muscle cramping Wellness examination BIOPSY BONE MARROW 02/10/2025 11 :02 AM EDT PATHOLOGY REQUEST FOR LAB REINA Routine 02/10/2025 10:00 AM EDT IMMUNOFIXATION,SERUM ([facility]) Routine 02/10/2025 9:15 AM EDT FREE K+L LT CHAINS, QN, S Routine 02/10/2025 9:15 AM EDT PROTEIN ELECTROPHORESIS, SERUM Routine 02/10/2025 9:15 AM EDT DIFF AND CBC Routine 02/10/2025 9:15 AM EDT COMPREHENSIVE METABOLIC PANEL Routine 02/10/2025 9:15 AM EDT COAGULATION PROFILE STAT 02/10/2025 9 :15 AM EDT COLONOSCOPY DIAGNOSTIC Routine 10/02/2018 2:27 PM EST from Last 3 Months or Most Recently Relevant to Health Maintenance Results * TSH W/REFLEX TO FT4 (03/18/2025 8:26 AM EDT) TSH W/REFLEX TO FT4 0.97 0.40 - 4.50 mIU/L [facility] 03/18/2025 8:26 AM EDT 03/18/2025 4:06 PM EDT Narrative [facility] - 03/19/2025 10:10 AM EDT FASTING:YES FASTING: YES Resulting Agency Comment Performing Organization Information Site ID: QPT Name: [facility] Address: [address] [place] [address], [address] [place] [phone] Director: Memo Marquis MD us Linda PIEDRA LAB BLOOD ORDERABLES Final Res ult [facility] * Vitamin D 25 hydroxy Total (03/18/2025 8:26 AM EDT) VITAMIN D,25-OH,TOTAL,IA 58 30 - 100 ng/mL [facility] Comment: Vitamin D Status 25-OH Vitamin D: Deficiency: <20 ng/mL Insufficiency: 20 - 29 ng/mL Optimal: > or = 30 ng/mL For 25-OH Vitamin D testing on patients on D2-supplementation and patients for whom quantitation of D2 and D3 fractions is required, the QuestAssureD(TM) 25-OH VIT D, (D2,D3), LC/MS/MS is recommended: order code 44587 (patients >2yrs). See Note 1 Note 1 For additional information, please refer to http://education.[employer]/faq/IVO707 (This link is being provided for informational/ educational purposes only.) Blood Venous blood specimen / Unknown 03/18/2025 8:26 AM EDT 03/18/2025 4:06 PM EDT Narrative [facility] - 03/19/2025 10:10 AM EDT FASTING:YES FASTING: YES Resulting Agency Comment Performing Organization Information Site ID: QPT Name: [facility] Address: [address] [place] [address], [address] [place] [phone] Director: Memo Marquis MD Linda PIEDRA LAB BLOOD ORDERABLES Final Res ult Performing Organization Address [facility] de Phone Number [facility] * PSA (03/18/2025 8:26 AM EDT) PSA, TOTAL 0.62 < OR = 4.00 ng/mL [facility] Comment: The total PSA value from this assay system is standardized against the WHO standard. The test result will be approximately 20% lower when compared to the equimolar-standardized total PSA (Pan Viri). Comparison of serial PSA results should be interpreted with this fact in mind. This test was performed using the Siemens chemiluminescent method. Values obtained from different assay methods cannot be used interchangeably. PSA levels, regardless of value, should not be interpreted as absolute evidence of the presence or absence of disease. Blood Venous blood specimen / Unknown 03/18/2025 8:26 AM EDT 03/18/2025 4:06 PM EDT Narrative [facility] - 03/19/2025 10:10 AM EDT FASTING:YES FASTING: YES Resulting Agency Comment Performing Organization Information Site ID: QPT Name: [facility] Address: [address] [place] [address], [address] [place] [phone] Director: Memo Marquis MD Linda PIEDRA LAB BLOOD ORDERABLES Final Res ult Performing Organization Address [facility] de Phone Number [facility] * Hemoglobin A1c (03/18/2025 8:26 AM EDT) Hemoglobin A1C <4.2 <5.7 % [facility] Comment: Verified by repeat analysis. For the purpose of screening for the presence of diabetes: <5.7% Consistent with the absence of diabetes 5.7-6.4% Consistent with increased risk for diabetes (prediabetes) > or =6.5% Consistent with diabetes This assay result is consistent with a decreased risk of diabetes. Currently, no consensus exists regarding use of hemoglobin A1c for diagnosis of diabetes in children. According to [place] Diabetes Association (ADA) guidelines, hemoglobin A1c <7.0% represents optimal control in non- diabetic patients. Different metrics may apply to specific patient populations. Standards of Medical Care in Diabetes(ADA). Blood Venous blood specimen / Unknown 03/18/2025 8:26 AM EDT 03/18/2025 4:06 PM EDT Narrative [facility] - 03/19/2025 10:10 AM EDT FASTING:YES FASTING: YES Resulting Agency Comment Performing Organization Information Site ID: QPT Name: [facility] Address: [address] [place] [address], [address] [place] [phone] Director: Memo Marquis MD us Linda PIEDRA LAB BLOOD ORDERABLES Final Res ult [facility] * Lipid panel (03/18/2025 8:26 AM EDT) CHOLESTEROL, TOTAL 140 <200 mg/dL [facility] HDL CHOLESTEROL 67 > OR = 40 mg/dL [facility] TRIGLYCERIDES 53 <150 mg/dL [facility] LDL CHOLESTEROL 60 mg/dL (calc) [facility] Comment: Reference range: <100 Desirable range <100 mg/dL for primary prevention; <70 mg/dL for patients with CHD or diabetic patients with > or = 2 CHD risk factors. LDL-C is now calculated using the Fely calculation, which is a validated novel method providing better accuracy than the Friedewald equation in the estimation of LDL-C. Hilario VALDIVIA et al. ARNULFO. 2013;310(19): 2902-3845 (http://education.[employer].Flomio/faq/YUL468) CHOL/HDLC RATIO 2.1 <5.0 (calc) [facility] NON HDL CHOLESTEROL 73 <130 mg/dL (calc) [facility] Comment: For patients with diabetes plus 1 major ASCVD risk factor, treating to a non-HDL-C goal of <100 mg/dL (LDL-C of <70 mg/dL) is considered a therapeutic option. Blood Venous blood specimen / Unknown 03/18/2025 8:26 AM EDT 03/18/2025 4:06 PM EDT Narrative [facility] - 03/19/2025 10:10 AM EDT FASTING:YES FASTING: YES Resulting Agency Comment Performing Organization Information Site ID: QPT Name: [facility] Address: [address] [place] [address], [address] [place] [phone] Director: Memo Marquis MD Linda PIEDRA LAB BLOOD ORDERABLES Final Res ult [facility] * Biopsy bone marrow (02/10/2025 11:02 AM EDT) 02/10/2025 11:0 2 AM EDT Impressions [facility] - 02/14/2025 9:[address]-guided bone marrow biopsy. Impression dictated by: Garcia Vanegas Jr., D.O. 02/10/2025 11:08 AM Dictation Location: [place] [address] Transcribed By: [facility] 02/10/25 1108 Dictated By: Garcia Vanegas Jr, DO 02/10/25 1102 Signed By: <Electronically signed by Garcia Vanegas Jr, DO in OV> 02/10/25 1108 Narrative [facility] - 02/14/2025 9:03 AM EDT [place] [address] CT Scan Report Signed Patient: Yuri Shine MR#: [id number] 10 : 1960 Acct:[id number] Age/Sex: 64 / M ADM Date: 02/10/25 Loc: CT Room: Type: [facility] Attending Dr: Christian Carlos II DO Copies [...] local anesthesia. Utilizing CT guidance, an 11-gauge [facility] biopsy needle was advanced into the right [...] Note Garcia Vanegas Jr., DO - 03/03/2025 [place] [address] CT Scan Report Signed Patient: Yuri Sihne SMR#: [id number] 10 : 1960Acct:[id number] Age/Sex: 64 / MADM Date: 02/10/25 Loc: CT Room:Type: [facility] Attending Dr: Christian Carlos II DO Copies [...] for localanesthesia. Utilizing CT guidance, an 11-gauge [employer] biopsy needle was advanced into the rightiliac [...] biopsy. Impression dictated by: Garcia Vanegas Jr., D.OCarrie 02/10/2025 11:08 AM Dictation Location: [place] [address] Transcribed By: [facility] 02/10/25 1108 Dictated By: Garcia Vanegas Jr, DO 02/10/25 1102 Signed By: <Electronically signed by Garcia Vanegas Jr, DO inOV> 02/10/25 1108 Christian Carlos DO IN CLINIC/BEDSIDE ORDERAB LES Edited Result - Final Performing Organization Address [facility] [place] [place] [address], * PATHOLOGY REQUEST FOR LAB REINA (02/10/2025 10:00 AM EDT) PATHOLOGY REQUEST FOR LAB REINA 02/15/2025 7:42 AM EDT [facility] Comment:See report. Scanned copy available in EMR. Other Topography unknown / Unknown 02/10/2025 10:00 AM EDT 02/10/2025 10:00 AM EDT Christian Carlos DO LAB BLOOD ORDERABLES Summer l Result Performing Organization Address [facility] Co de Phone Number [address] [place] [address], [place] [address] [place] [address] * COAGULATION PROFILE (02/10/2025 9:15 AM EDT) PROTHROMBIN TIME 11.1 9.0 - 12.9 s 02/10/2025 9:49 AM EDT [facility] Comment: A hematocrit value greater than 55% may lead to inaccurate results in coagulation testing. Patients having hematocrit values >55% require a special collection tube for coagulation studies. Please contact the laboratory at [phone] for redraw instructions. INR 1.0 02/10/2025 9:49 AM EDT [facility] Comment: INR Therapeutic Range A) Pre- and Peroperative OAT started two weeks before surgery. NOT HIP SURGERY: 1.5 - 2.5 HIP SURGERY: 2 - 3 B) Primary and secondary prevention of venous THROMBOSIS: 2 - 3 C) Active venous thrombosis, pulmonary embolism and prevention of recurrent venous thrombosis: 2 - 3 D) Prevention of arterial thromboembolism including patients with mechanical heart valves: 3 - 4.5 PARTIAL THROMBOPLASTIN TIME 30.1 25.1 - 36.5 s 02/10/2025 9:49 AM EDT [facility] Comment: A hematocrit value greater than 55% may lead to inaccurate results in coagulation testing. Patients having hematocrit values >55% require a special collection tube for coagulation studies. Please contact the laboratory at [phone] for redraw instructions. Other Topography unknown / Unknown 02/10/2025 9:15 AM EDT 02/10/2025 9:21 AM EDT Narrative [facility] - 02/10/2025 9:49 AM EDT STAT FOR CT us Christian Carlos DO LAB BLOOD ORDERABLES Summer hernandez Result [facility] [address] [place] [address], [place] [address] [place] [address] * FREE K+L LT CHAINS, QN, S (02/10/2025 9:15 AM EDT) FREE KAPPA LIGHT CHAINS, S 16.3 3.3 - 19.4 mg/L 02/11/2025 3:08 PM EDT [facility] FREE LAMBDA LIGHT CHAINS, S 10.6 5.7 - 26.3 mg/L 02/11/2025 3:08 PM EDT [facility] KAPPA/LAMBDA RATIO, S 1.54 0.26 - 1.65 02/11/2025 3:08 PM EDT [facility] Comment: Performed at: - [facility] [id number] Air Analyst: Chad Mccall PhD, Phone: [phone] Other Topography unknown / Unknown 02/10/2025 9:15 AM EDT 02/10/2025 9:21 AM EDT us Christian Carlos DO LAB BLOOD ORDERABLES Summer ng Result [facility] [address] [place] [address], [place] * (ABNORMAL) DIFF AND CBC (02/10/2025 9:15 AM EDT) WBC 20.7(H) 4.1 - 10.5 [CFU]/mL 02/10/2025 9:26 AM EDT [facility] UNCORRECTED WHITE BLOOD COUNT 20.7(H) 4.1 - 10.5 10*3/uL 02/10/2025 9:26 AM EDT [facility] RBC 3.98 3.90 - 5.60 10*6/uL 02/10/2025 9:26 AM EDT [facility] HEMOGLOBIN 13.6 13.0 - 17.0 g/dL 02/10/2025 9:26 AM EDT [facility] HEMATOCRIT 38.6(L) 38.8 - 50.0 % 02/10/2025 9:26 AM EDT [facility] MCV 97.2 83.5 - 101 fL 02/10/2025 9:26 AM EDT [facility] MCH 34.2 27.5 - 35.2 pg 02/10/2025 9:26 AM EDT [facility] MCHC 35.2 32.5 - 35.6 g/dL 02/10/2025 9:26 AM EDT [facility] RED CELL DISTRIBUTION WIDTH, RDW 13.4 12.0 - 14.8 % 02/10/2025 9:26 AM EDT [facility] PLATELET COUNT 158 150 - 450 10*3/uL 02/10/2025 9:26 AM EDT [facility] MEAN PLATELET VOLUME, MPV 7.4 6.6 - 10.1 fL 02/10/2025 9:26 AM EDT [facility] Blood (Blood) 02/10/2025 9:1 5 AM EDT 02/10/2025 9:21 AM EDT Chritsian Carlos DO LAB BLOOD ORDERABLES Summer l Result Performing Organization Address [facility] [place] [address], [facility] [address] [place] [address] * IMMUNOFIXATION,SERUM ([facility]) (02/10/2025 9:15 AM EDT) [facility] IMMUNOFIXATION, SERUM Comment . 02/14/2025 1:08 PM EDT [facility] Comment:No monoclonality det ected. IMMUNOGLOBULIN G 714 603 - 1,613 mg/dL 02/14/2025 1:08 PM EDT [facility] IMMUNOGLOBULIN A, SERUM 146 61 - 437 mg/dL 02/14/2025 1:08 PM EDT [facility] IMMUNOGLOBULIN M, SERUM 24 20 - 172 mg/dL 02/14/2025 1:08 PM T [facility] Comment: Result confirmed on concentration. Performed at: - [address] [id number] Air Analyst: Chad Mccall PhD, Phone: [phone] Other Topography unknown / Unknown 02/10/2025 9:15 AM EDT 02/10/2025 9:21 AM EDT Christian Carlos DO LAB BLOOD ORDERABLES Summer l [place] [address], [place] * Protein electrophoresis, serum (02/10/2025 9:15 AM EDT) TOTAL PROTEIN, SERUM 6.3 6.0 - 8.5 g/dL 02/11/2025 3:08 PM EDT [facility] ALBUMIN, SERUM 4.0 2.9 - 4.4 g/dL 02/11/2025 3:08 PM EDT [facility] IEIMS-8-GUEYGQUO 0.3 0.0 - 0.4 g/dL 02/11/2025 3:08 PM EDT [facility] SFLXC-9-KCLAGVEA 0.5 0.4 - 1.0 g/dL 02/11/2025 3:08 PM EDT [facility] BETA GLOBULIN 0.9 0.7 - 1.3 g/dL 02/11/2025 3:08 PM EDT [facility] GAMMA GLOBULIN 0.7 0.4 - 1.8 g/dL 02/11/2025 3:08 PM EDT [facility] M-SPIKE Not Observed Not Observed g/dL 02/11/2025 3:08 PM EDT [facility] GLOBULIN, TOTAL 2.3 2.2 - 3.9 g/dL 02/11/2025 3:08 PM EDT [facility] A/G RATIO 1.7 0.7 - 1.7 02/11/2025 3:08 PM EDT [facility] SPE-NOTE Comment . 02/11/2025 3:08 PM EDT [facility] Comment: Protein electrophoresis scan will follow via computer, mail, or supervisor phosphorus processing delivery. Other Topography unknown / Unknown 02/10/2025 9:15 AM EDT 02/10/2025 9:21 AM EDT us Christian Carlos DO LAB BLOOD ORDERABLES Summer l Result [facility] [place] [place] [address], * (ABNORMAL) Comprehensive metabolic panel (02/10/2025 9:15 AM EDT) Glucose 106(H) 70 - 100 mg/dL 02/10/2025 10:00 AM [facility] Comment: Random Glucose Reference Range is dependent on time and content of last meal. Glucose of more than 200 mg/dL in a nonstressed, ambulatory subject supports the diagnosis of Diabetes Mellitus. ADA recommended reference range BUN 22 7 - 25 mg/dL 02/10/2025 10:00 AM [facility] CREATININE 0.86 0.70 - 1.30 mg/dL 02/10/2025 10:00 AM [facility] ESTIMATED GFR >60.0 02/10/2025 10:00 AM [facility] Sodium 140 136 - 145 mmol/L 02/10/2025 10:00 AM [facility] Potassium, Bld 3.8 3.5 - 5.1 mmol/L 02/10/2025 10:00 AM [facility] Chloride 106 98 - 107 mmol/L 02/10/2025 10:00 AM [facility] Carbon Dioxide 28.6 21.0 - 31.0 mmol/L 02/10/2025 10:00 AM [facility] Anion Gap 9.2 6.0 - 15.0 02/10/2025 10:00 AM [facility] Calcium 9.3 8.6 - 10.3 mg/dL 02/10/2025 10:00 AM [facility] TOTAL PROTEIN 6.7 6.4 - 8.9 g/dL 02/10/2025 10:00 AM [facility] ALBUMIN LEVEL 4.7 3.5 - 5.7 g/dL 02/10/2025 10:00 AM [facility] GLOBULIN 2.0 g/dL 02/10/2025 10:00 AM [facility] ALBUMIN/GLOBULIN RATIO 2.4 02/10/2025 10:00 AM [facility] BILIRUBIN,TOTAL 1.9(H) 0.3 - 1.0 mg/dL 02/10/2025 10:00 AM [facility] Comment: Samples from patients who have taken Naproxen have shown spurious elevation in Total Bilirubin levels. A metabolite of Naproxen, O-desmethylnaproxen, has been shown to interfere with the Sathish-Federica method for measuring Total Bilirubin. ASPARTATE AMINO TRANSFERASE 38 13 - 39 U/L 02/10/2025 10:00 AM EDT [facility] ALANINE AMINOTRANSFERASE 31 7 - 52 U/L 02/10/2025 10:00 AM EDT [facility] ALKALINE PHOSPHATASE 88 34 - 104 U/L 02/10/2025 10:00 AM EDT [facility] CREATININE CLR [facility] 93.99 02/10/2025 10:00 AM EDT [facility] Other Topography unknown / Unknown 02/10/2025 9:15 AM EDT 02/10/2025 9:21 AM EDT Christian Carlos DO LAB BLOOD ORDERABLES Summer ng Result Performing Organization Address [facility] Co de Phone Number [facility] [address] [place] [phone], [place] [address] [place] [phone] * COLONOSCOPY DIAGNOSTIC (10/02/2018 2:27 PM EST) Anatomical Region Laterality Modality Radiographic Niki ging Unknown Practice A IMG XR PROCEDURES Final Resul t from Last 3 Months or Most Recently Relevant to Health Maintenance Insurance MEDICAL [employer] Care Teams Budget Director Relationship Specialty Start Date End Date Linda Jansen PA [address] [facility] [address] [place] [address] PCP - General Family Medicine 08/06/23
--- OUTSIDE RECORDS SUMMARY | 2025-05-09 08:43 | XMS_ITS | Encounter Summary ---
Author Organization [facility] Address [address] [place] [address] Care Team Providers Care Apparel Fashion Designer Name Role Phone Linda Jansen Primary Care Provider [phone] Linda Jansen Unavailable [phone] Encounter Details Date Type Department Care Team (Late st Contact Info) Description 07/08/2024 Abstract [facility] [address] [facility] [address] [place] [address] Linda Jansen PA [address] [place] [facility] 110 [place] [address] Social History Tobacco Use Types Packs/Day Years [...] often do you attend chur ch or yazdanism services? 1 to 4 times per year 08/06/2023 Do you belong to any clubs o r organizations such as episcopal groups, unions, fraternal or athletic groups, or [...] Not hard at all 08/06/2023 [facility] - Occupational Stress Questionnaire Answer Date [...] place to sleep or slept in a jail (including now)? No 08/06/2023 Sex and Gender Information Value Date Recorded Sex Assigned at Not on file Legal Sex Male 8:11 PM EDT Gender Identity Not on file Sexual Orientation Not on file documented as of this encounter Plan of Treatment Not on file documented as of this encounter Visit Diagnoses Not on filedocumented in this encounter Care Teams Apparel Fashion Designer Relationship Specialty Start Date End Date Linda Jansen PA [address] [facility] 110 [place] [address] PCP - General Family Medicine 08/06/23 Linda Jansen PA [address] [facility] [address] [place] [address] PCP - Medical [place] [employer] 02/22/23 04/25/25 documented as of this encounter
--- OUTSIDE RECORDS SUMMARY | 2025-05-09 08:43 | XMS_ITS | Encounter Summary ---
Author Organization [facility] Address [address] [place] [address] Care Team Providers Care Franchise Development Manager Name Role Phone Linda Jansen Primary Care Provider Linda Jansen Unavailable [phone] Encounter Details Date Type Department Care Team (Late st Contact Info) Description 07/30/2024 Abstract [facility] [address] [facility] 110 [place] [address] Linda Jansen PA [address] [place] [facility] [address] [place] [address] Social History Tobacco Use Types Packs/Day Years [...] often do you attend chur ch or religion services? 1 to 4 times per year 08/06/2023 Do you belong to any clubs o r organizations such as jain groups, unions, fraternal or athletic groups, or [...] and heating? Not hard at all 08/06/2023 [facility] - Occupational Stress Questionnaire Answer Date [...] place to sleep or slept in a senior care (including now)? No 08/06/2023 Sex and Gender Information Value Date Recorded Sex Assigned at Not on file Legal Sex Male 8:11 PM EDT Gender Identity Not on file Sexual Orientation Not on file documented as of this encounter Plan of Treatment Not on file documented as of this encounter Visit Diagnoses Not on filedocumented in this encounter Care Teams Franchise Development Manager Relationship Specialty Start Date End Date Linda Jansen PA [address] [facility] [address] [place] [address] PCP - General Family Medicine 08/06/23 Linda Jansen PA [address] [facility] [address] [place] [address] PCP - Medical [place] [employer] 02/22/23 04/25/25 documented as of this encounter
--- OUTSIDE RECORDS SUMMARY | 2025-05-09 08:43 | XMS_ITS | Clinical Summary ---
Author Organization [facility] Address [address] [place] [address] Care Team Providers Care Scientific Process Operator Name Role Phone Penny Duran MD [facility] Allergies No known active allergies Medications sildenafil citrate (VIAGRA ORAL) Take by mouth as needed. Active aspirin, enteric coated (ASPIRIN, ENTERIC COATED) 81 mg EC tablet Take 81 mg by mouth. 3 Active meloxicam (MOBIC) 15 mg tablet TAKE 1 TABLET (15 MG) BY MOUTH DAILY NEEDED FOR MILD PAIN 4 Active doxazosin (CARDURA) 4 mg tablet TAKE 1 TABLET BY MOUTH EVERYDAY AT BEDTIME 90 tablet 3 4 Active nebivolol (BYSTOLIC) 5 mg tabletIndication s:Prescription refill TAKE 1 TABLET BY MOUTH EVERY DAY 90 tablet 3 5 Active NIFEdipine XL (ADALAT CC) 30 mg 24 hr tabletIndication s:Hypertension, unspecified type Take 1 tablet by mouth once daily. 90 tablet 3 5 Active Valsartan-hydroC HLOROthiazide 320-25 mg per tablet Take 1 tablet by mouth once daily. 90 tablet 3 5 Active Active Problems Problem Noted Date Diagnosed Date PONV (postoperative nausea and vomiting) 022 Atrial fibrillation, persistent 09/27/2021 Benign essential HTN 09/27/2021 DMITRY (obstructive sleep apnea) 09/27/2021 Encounters Date Type Department Care Team Description 04/04/2025 2:30 PM EDT Office Visit Cardiology [address] [place] [address] Penny Duran MD PAF (paroxysmal atrial fibrillation) (HCC) (Primary Dx); Atrial fibrillation, persistent (HCC); Benign essential HTN; Hypertension, unspecified type; Tachycardia induced cardiomyopathy (HCC) 04/03/2025 Travel from Last 3 Months Immunizations Immunization Administration Dates Next Due hepatitis B (HepB) vaccine, 3-dose series, age 20+ yr (ENGERIX-B, RECOMBIVAX HB) 01/29/2005,08/28/2004,07/24/2004 influenza (IIV4) vaccine, ag e 6 mo - 64 yr, quadrivalent, PF (AFLURIA, FLUARIX, FLULAVAL, FLUZONE) 06/10/2019,06/10/2018 Social History Tobacco Use Types Packs/Day Years Used Date Smoking Tobacco: Never Smokeless Tobacco: Never Tobacco Cessation:Counseling Given: Not Answered Alcohol Use Standard Drinks/Week Comments Not Currently 0 (1 standard drink = 0.6 oz pur e alcohol) Area Deprivation Index Answer Date Francis rded National Score (1-100), lower number is lower ri sk 87 12/25/2022 State Score (1-10), lower number is lower risk 8 12/25/2022 Data from: https://www.neighborhoodatlas.[facility].edu/. Last address used for calculation [address] [place] [address] 12/25/2022 Sex and Gender Information Value Date Recorded Sex Assigned at Not on file Legal Sex Male 12:00 PM EDT Gender Identity Not on file Sexual Orientation Not on file Last Filed Vital Signs Vital Sign Reading Time Taken Comments Blood Pressure 132/88 04/04/2025 2:32 PM EDT Pulse 76 04/04/2025 2:32 PM EDT Temperature 36.9 C (98.5 F) 04/05/2022 2:52 PM EDT Respiratory Rate 16 10/03/2023 1:23 PM EST Oxygen Saturation 97% 01/30/2024 2:12 PM EDT Inhaled Oxygen Concentration - - Weight 88.6 kg (195 lb 5.2 oz) 04/04/2025 2:32 P M EDT Height 182.9 cm (6') 04/04/2025 2:32 PM EDT Body Mass Index 26.49 04/04/2025 2:32 PM EDT Plan of Treatment Upcoming Encounters Date Type Department Care Team (Late st Contact Info) Description 06/13/2025 10:30 AM EDT Office Visit Cardiology [address] [place] [address] PAF (paroxysmal atrial fibrillation) (HCC) [I48.0] 04/05/2026 8:00 AM EDT Office Visit Cardiology [address] [place] [address] [place] [address] [place] [address] yearly follow up Health Maintenance Due Date Last Done Comments Annual PCP Team Chronic Dise ase Visit 1977 Anxiety Screening 1977 Depression Screening 1977 HIV Screening 1977 Hepatitis C Screening 1977 DTaP,Tdap,Td Vaccine (1 - Tdap) 1978 CT Colonography 2004 Cologuard (FIT-DNA) 2004 Colonoscopy 2004 Colorectal Cancer Screening 2004 Fecal Occult Blood 2004 Sigmoidoscopy 2004 Pneumococcal Vaccine: 50+ (1 of 1 - PCV) 2009 Shingrix Vaccine (1 of 2) 2009 Advance Directive Discussion 2024 Influenza Vaccine (#1) 2025 2, 06/10/2019, 05/25/2019, Additional history exists Lipid Screening 08/07/2027 08/07/2022, 04/01/2022 Diabetes Screening 03/18/2028 03/18/2025, 0 02/10/2025, 01/13/2025, Additional history exists Prostate Cancer Screening Discussion 03/18/2030 03/18/2025, 12/27/2022, 08/07/2022 RSV Vaccine (1 - 1-dose 75+ series) 2034 Procedures Procedure Name Priority Date/Time Associated Diagnosis Comments ECG COMPLETE 04/04/2025 2:34 PM EDT BASIC METABOLIC PANEL Routine 10/17/2022 3:53 PM EST Hypertension, unspecified type LIPID PANEL, FASTING Routine 04/01/2022 7:33 AM EDT Atherosclerosis from Last 3 Months or Most Recently Relevant to Health Maintenance Results * ECG COMPLETE (04/04/2025 2:34 PM EDT) Ventricular Rate 76 BPM [facility] Atrial Rate 76 BPM [facility] P-R Interval 178 ms [facility] QRS Duration 86 ms [facility] QT Interval 378 ms [facility] QTC Calculation (Bazett) 425 ms [facility] Calculated P [place] 13 degrees [facility] Calculated R [place] 0 degrees [facility] Calculated T [place] 18 degrees [facility] 04/04/2025 2:34 PM EDT Impressions [facility] - 04/04/2025 5:11 PM EDT NORMAL SINUS RHYTHM NORMAL ECG Confirmed by JADE DAS MD ([id number]) on 04/04/2025 5:11:38 PM [facility] - 04/04/2025 5:11 PM EDT NAME : DARIUS VALERA PID : [id number] : 1960 Gender : Male Race : ORD : Procedure Date : Apr 04 2025 14:34:56 Edit Date : Apr 04 2025 17:11:41 Diagnosis: NORMAL SINUS RHYTHM NORMAL ECG Confirmed by JADE DAS MD ([id number]) on 04/04/2025 5:11:38 PM Test Reason : Location : 192 : AVCRD Overread By : JADE DAS MD Edited By : JADE DAS MD Referred By : , Acquired by : , us [facility]cf Provider EKG Final Result [facility] [address] [place] [address] * (ABNORMAL) LIPID PANEL BASIC (04/01/2022 7:33 AM EDT) Cholesterol, Total 173 <200 mg/dL 04/01/2022 7:01 PM [facility] Comment: <200 mg/dL, Desirable 200-239 mg/dL, Borderline high >239 mg/dL, High Triglyceride 85 <150 mg/dL 04/01/2022 7:01 PM [facility] Comment: <150 mg/dL, Normal 150-199 mg/dL, Borderline high 200-499 mg/dL, High >499 mg/dL, Very high HDL Cholesterol 52 >39 mg/dL 7:01 PM [facility] Comment: 40-59 mg/dL, Acceptable >59 mg/dL, High: Negative risk factor for coronary heart disease <40 mg/dL, Low: Positive risk factor for coronary heart disease Non HDL Cholesterol 121 <130 mg/dL 04/01/2022 7:01 PM [facility] Comment: <130 mg/dL, Optimal 130-159 mg/dL, Near optimal/above optimal 160-189 mg/dL, Borderline high 190-219 mg/dL, High >219 mg/dL, Very high Secondary prevention optimal non HDL Cholesterol levels are recommended to be <100 mg/dL Fasting Time 12 hrs 04/01/2022 7:01 PM [facility] VLDL Cholesterol 17 <30 mg/dL 04/01/20 7:01 PM [facility] TC:HDL Ratio 3.33 <5.10 04/01/2022 7:01 PM [facility] LDL Cholesterol, Calculated 104(H) <100 mg/dL 04/01/2022 7:01 PM [facility] Comment: <100 mg/dL, Optimal 100-129 mg/dL, Near optimal/above optimal 130-159 mg/dL, Borderline high 160-189 mg/dL, High >189 mg/dL, Very high Secondary prevention optimal LDL Cholesterol levels are recommended to be < 70 mg/dL LDL:HDL Ratio 2.00 <2.54 04/01/2022 7:01 PM [facility] Comment: Reference: 1. National Cholesterol Education Program ATP III Guideline At-A-Glance Quick Desk Reference: National Heart, Lung, and Blood [place]. National Institutes of Health. 2001: NIH Publication No. 01-3305. 2. An International Atherosclerosis Society position paper: global recommendations for the management of dyslipidemia: executive summary, Atherosclerosis. 2014: 232(2):410-413. Blood BLOOD SPECIMEN / Unknown Venipuncture / Unknown 04/01/2022 7:33 AM EDT 04/01/2022 7:33 AM EDT Penny Duran MD LABORATORY Final Result [facility] [address] [facility] [address]k [address] [place] [address], [facility] [address] [place] [address] from Last 3 Months or Most Recently Relevant to Health Maintenance Insurance O S Care Teams Scientific Process Operator Relationship Specialty [place] [address] [place], [place] [id number] Primary Staff Physician Cardiology 03/22/22
--- OUTSIDE RECORDS SUMMARY | 2025-05-09 08:43 | XMS_ITS | Encounter Summary ---
Author Organization [facility] Address [address] [place] [address] Care Team Providers Care Locomotive Supervisor Name Role Phone Liang Jansen Primary Care Provider [phone] Liang Jansen Unavailable [phone] Encounter Details Date Type Department Care Team (Late st Contact Info) Description 06/29/2024 Clinisync Result Encounter [facility] External Department Unsolicited Liang Jansen PA [address] [facility] [address] [place] [address] Social History Tobacco Use Types Packs/Day Years [...] often do you attend chur ch or anglican services? 1 to 4 times per year 08/06/2023 Do you belong to any clubs o r organizations such as worship groups, unions, fraternal or athletic groups, or [...] and heating? Not hard at all 08/06/2023 [facility] - Occupational [...] place to sleep or slept in a mcc (including now)? No 08/06/2023 Sex and Gender Information Value Date Recorded Sex Assigned at Not on file Legal Sex Male 8:11 PM EDT Gender Identity Not on file Sexual Orientation Not on file documented as of this encounter Plan of Treatment Not on file documented as of this encounter Procedures Procedure Name Priority Date/Time Associated Diagnosis Comments XR THORACIC SPINE 3V 06/29/2024 3:01 PM EST documented in this encounter Results * XR THORACIC SPINE 3V (06/29/2024 3:01 PM EST) Anatomical Region Laterality Modality Other 06/29/2024 3:01 PM EST Narrative 06/29/2024 3:03 [place] [address] XRay Report Signed Patient: YURI VALERA MR#: [id number] : 1960 Acct:[id number] Age/Sex: 63 / M ADM Date: 06/28/24 Loc: RAD Attending Dr: LIANG JANSEN Ordering Physician: LIANG JANSEN Date of Service: 06/28/24 Procedure(s): XR thoracic spine 3V Accession Number(s): [id number] cc: LIANG JANSEN [address] [address] Patient Name: YURI VALERA MRN: [id number] date: 1960 Sex: M Assigned Patient Location: RAD Current Patient Location: Accession/Order Number: [id number] Exam Date: 06/28/2024 17:55 Report Date: 06/29/2024 15:01 At the request of: LIANG JANSEN Procedure: XR thoracic spine 3V EXAMINATION: XR thoracic spine 3V HISTORY: strain of thoracic back region (S29.012A) COMPARISON: No relevant comparison available. FINDINGS: BONES: Normal alignment with no acute fracture or spondylolisthesis. Mild to moderate spondylosis. Mild facet osteoarthropathy DISC SPACES: Normal. No significant disc height narrowing, subluxation, or endplate abnormality. PARASPINOUS: Negative. No paraspinous abnormality is seen. OTHER: Negative. XR/XR thoracic spine 3V IMPRESSION: Mild to moderate degenerative change Electronically authenticated by: KIRSTIE DODD Date: 06/29/2024 15:01 Dictated By: Kirstie Dodd M.D. Signed By: 06/29/24 1503 DD/ 1501 TD/TT: Food And Beverage Lead: Procedure Note Radiology, Radiologist, MD - 06/29/2024 [place] [address] XRay Report Signed Patient: YURI VALERA SMR#: [id number] : 1960Acct:[id number] Age/Sex: 63 / MADM Date: 06/28/24 Loc: RAD Attending Dr: LIANG JANSEN Ordering Physician: LIANG JANSEN Date of Service: 06/28/24 Procedure(s): XR thoracic spine 3V Accession Number(s): [id number] cc: LIANG JANSEN [address] [address] Patient Name: YURI VALERA MRN: [id number] date: 1960 Sex: M Assigned Patient Location: RAD Current Patient Location: Accession/Order Number: [id number] Exam Date: 06/28/2024 17:55 Report Date: 06/29/2024 15:01 At the request of: LIANG JANSEN Procedure: XR thoracic spine 3V EXAMINATION: XR thoracic spine 3V HISTORY: strain of thoracic back region (S29.012A) COMPARISON: No relevant comparison available. FINDINGS: BONES: Normal alignment with no acute fracture or spondylolisthesis. Mildto moderate spondylosis. Mild facet osteoarthropathy DISC SPACES: Normal. No significant disc height narrowing, subluxation, or endplate abnormality. PARASPINOUS: Negative. No paraspinous abnormality is seen. OTHER: Negative. XR/XR thoracic spine 3V IMPRESSION: Mild to moderate degenerative change Electronically authenticated by: KIRSTIE DODD Date: 06/29/2024 15:01 Dictated By: Kirstie Dodd M.D. Signed By:06/29/24 1503 DD/ 1501 TD/TT: Food And Beverage Lead: Liang [facility] Final Result documented in this encounter Visit Diagnoses Not on filedocumented in this encounter Care Teams Locomotive Supervisor Relationship Specialty Start Date End Date Liang Jansen PA [address] [address] PCP - General Family Medicine 08/06/23 Liang Jansen PA [address] [address] PCP - Medical [place] [employer] 02/22/23 04/25/25 documented as of this encounter
--- OUTSIDE RECORDS SUMMARY | 2025-05-09 08:43 | XMS_ITS | Encounter Summary ---
Author Organization [facility] Address [address] [place] [address] Care Team Providers Care Hair Baler Name Role Phone Penny Duran MD [facility] Source Comments In the event this information is protected by the Federal Confidentiality of Alcohol and Drug AbusePatient Records regulations: The Federal rules restrict any use of the information to criminally investigate or prosecute any alcohol or drug abuse patient.[facility] Encounter Details Date Type Department Care Team (Late st Contact Info) Description 10/06/2023 Patient Msg Cardiology [address] [facility] [place] [address] Hiren Sena MD [address] [place] [address] [place], [place] [id number] Monitor Social History Tobacco Use Types Packs/Day Years Used Date Smoking Tobacco: Never Smokeless Tobacco: Never Alcohol Use Standard Drinks/Week Comments Not Currently 0 (1 standard drink = 0.6 oz pur e alcohol) Area Deprivation Index Answer Date Francis rded National Score (1-100), lower number is lower ri sk 87 12/25/2022 State Score (1-10), lower number is lower risk 8 12/25/2022 Data from: https://www.neighborhoodatlas.[facility]/. Last address used for calculation [address] [place] [address] 12/25/2022 Sex and Gender Information Value Date Recorded Sex Assigned at Not on file Legal Sex Male 12:00 PM EDT Gender Identity Not on file Sexual Orientation Not on file documented as of this encounter Functional Status * Are you deaf or do you have serious difficulty hearing? Answer Date of Assessment Author No 12/04/2021 11:08 AM EDT Ireen Tidwell RN * Are you blind or [...] 10:30 AM EDT Office Visit Cardiology [address] [place] [address] PAF (paroxysmal atrial fibrillation) (HCC) [I48.0] 04/05/2026 8:00 AM EDT Office Visit Cardiology [address] [place] [address] [place] [address] [place] [address] yearly follow up documented as of this encounter Visit Diagnoses Not on filedocumented in this encounter Care Teams Hair Baler Relationship Specialty [place] [address] [place], [place] [id number] Primary Staff Physician Cardiology 03/22/22 documented as of this encounter
--- OUTSIDE RECORDS SUMMARY | 2025-05-09 08:43 | XMS_ITS | Encounter Summary ---
Author Organization [facility] Address [address] [place] [address] Care Team Providers Care Oil Well Service Operator Helper Name Role Phone Penny Duran MD [facility] [phone] Source Comments In the event this information is protected by the Federal Confidentiality of Alcohol and Drug AbusePatient Records regulations: The Federal rules restrict any use of the information to criminally investigate or prosecute any alcohol or drug abuse patient.[facility] Encounter Details Date Type Department Care Team (Late st Contact Info) Description 09/15/2023 Patient Msg Cardiology [address] [place] [address] Provider, Ccf Recheck BP Social History Tobacco Use Types Packs/Day Years Used Date Smoking Tobacco: Never Smokeless Tobacco: Never Alcohol Use Standard Drinks/Week Comments Not Currently 0 (1 standard drink = 0.6 oz pur e alcohol) Area Deprivation Index Answer Date Francis rded National Score (1-100), lower number is lower ri sk 87 12/25/2022 State Score (1-10), lower number is lower risk 8 12/25/2022 Data from: https://www.neighborhoodatlas.medicine.[facility].edu/. Last address used for calculation [address] [place] [address] 12/25/2022 Sex and Gender Information Value Date [...] AM EDT Office Visit Cardiology [address] [facility] [place] [address] PAF (paroxysmal atrial fibrillation) ([facility]) [I48.0] 04/05/2026 8:00 AM EDT Office Visit Cardiology [address] [place] [address] [place] [address] [place] [address] yearly follow up documented as of this encounter Visit Diagnoses Not on filedocumented in this encounter Care Teams Oil Well Service Operator Helper Relationship Specialty [place] [address] [place] [address] Primary Staff Physician Cardiology 03/22/22 documented as of this encounter
--- OUTSIDE RECORDS SUMMARY | 2025-05-09 08:43 | XMS_ITS | Encounter Summary ---
Author Organization [facility] Address [address] [place] [address] Care Team Providers Care Wildlife Refuge Specialist Name Role Phone Linda Jansen Primary Care Provider [phone] Linda Jansen Unavailable [phone] Encounter Details Date Type Department Care Team (Late st Contact Info) Description 08/13/2024 Orders Only [facility] [address] [place] [phone] Eulalio Martinez DO [address] [facility] [place] [address] Tear of medial meniscus of right knee, current, unspecified tear type, subsequent encounter (Primary Dx) Social History Tobacco Use Types Packs/Day Years [...] How often do you attend chur or adventism services? 1 to 4 times per year 08/06/2023 Do you belong to any clubs o r organizations such as holiness groups, unions, fraternal or athletic groups, or [...] and heating? Not hard at all 08/06/2023 [facility]ok Health - Occupational Stress Questionnaire Answer [...] place to sleep or slept in a assisted (including now)? No 08/06/2023 Sex and Gender Information Value Date Recorded Sex Assigned at Not on file Legal Sex Male 8:11 PM EDT Gender Identity Not on file Sexual Orientation Not on file documented as of this encounter Plan of Treatment Not on file documented as of this encounter Visit Diagnoses Diagnosis Tear of medial meniscus of right knee, current, unspecified tear type, subsequent encounter- Primary documented in this encounter Care Teams Wildlife Refuge Specialist Relationship Specialty Start Date End Date Linda Jansen PA [address] [facility] [address] [place] [address] PCP - General Family Medicine 08/06/23 Linda Jansen PA [address] [facility] [address] [place] [address] PCP - Medical [place] [employer] 02/22/23 04/25/25 documented as of this encounter
--- OUTSIDE RECORDS SUMMARY | 2025-05-09 08:43 | XMS_ITS | Encounter Summary ---
Author Organization [facility] Address [address] [place] [address] Care Team Providers Care Agricultural Extension Educator Name Role Phone Penny Duran MD [facility] [phone] Source Comments In the event this information is protected by the Federal Confidentiality of Alcohol and Drug AbusePatient Records regulations: The Federal rules restrict any use of the information to criminally investigate or prosecute any alcohol or drug abuse patient.[facility] Encounter Details Date Type Department Care Team (Late st Contact Info) Description 04/09/2023 Patient Msg Cardiology [address] [place] [address] Hiren Sena MD [address] [place] [address] [place] [address] Appointment Cancellation Request Social History Tobacco Use Types Packs/Day Years Used Date Smoking Tobacco: Never Smokeless Tobacco: Never Alcohol Use Standard Drinks/Week Comments Not Currently 0 (1 standard drink = 0.6 oz pur e alcohol) Area Deprivation Index Answer Date Francis rded National Score (1-100), lower number is lower ri sk 87 12/25/2022 State Score (1-10), lower number is lower risk 8 12/25/2022 Data from: https://www.neighborhoodatlas.[facility]/. Last address used for calculation [address] [place] [address] 12/25/2022 Sex and Gender Information Value Date [...] 10:30 AM EDT Office Visit Cardiology [address] [place] [address] PAF (paroxysmal atrial fibrillation) (HCC) [I48.0] 04/05/2026 8:00 AM EDT Office Visit Cardiology [address] [place] [id number] [place] [address] [place] [address] yearly follow up documented as of this encounter Visit Diagnoses Not on filedocumented in this encounter Care Teams Agricultural Extension Educator Relationship Specialty [place] [address] [place], [place] [id number] Primary Staff Physician Cardiology 03/22/22 documented as of this encounter
--- OUTSIDE RECORDS SUMMARY | 2025-05-09 08:43 | XMS_ITS | Encounter Summary ---
Author Organization [facility] Address [address] [place] [address] Care Team Providers Care Architecture Technician Name Role Phone Linda Jansen Primary Care Provider [phone] Linda Jansen Unavailable [phone] Encounter Details Date Type Department Care Team (Late st Contact Info) Description 07/06/2024 [facility] [address] [facility] [address] [place] [address] Linda Jansen PA [address] [facility] 110 [place] [address] Social History Tobacco Use Types Packs/Day Years [...] often do you attend chur ch or congregational services? 1 to 4 times per year 08/06/2023 Do you belong to any clubs o r organizations such as adventism groups, unions, fraternal or athletic groups, or [...] 08/06/2023 [facility] - Occupational Stress Questionnaire Answer [...] place to sleep or slept in a long-term (including now)? No 08/06/2023 Sex and Gender Information Value Date Recorded Sex Assigned at Not on file Legal Sex Male 8:11 PM EDT Gender Identity Not on file Sexual Orientation Not on file documented as of this encounter Plan of Treatment Not on file documented as of this encounter Visit Diagnoses Not on filedocumented in this encounter Care Teams Architecture Technician Relationship Specialty Start Date End Date Linda Jansen PA [address] [facility] [address] [place] [address] PCP - General Family Medicine 08/06/23 Linda Jansen PA [address] [facility] [address] [place] [address] PCP - Medical [place] [employer] 02/22/23 04/25/25 documented as of this encounter
--- OUTSIDE RECORDS SUMMARY | 2025-05-09 08:43 | XMS_ITS | Encounter Summary ---
Author Organization [facility] Address [address] [place] [address] Care Team Providers Care Poultry Grader Name Role Phone Linda Jansen Primary Care Provider [phone] Linda Jansen Unavailable [phone] Encounter Details Date Type Department Care Team (Late st Contact Info) Description 02/21/2025 [facility] [address] [facility] [address] [place] [address] Linda Jansen PA [address] [place] [facility] [address] [place] [address] Social History Tobacco Use Types Packs/Day Years [...] often do you attend chur ch or yarsanism services? 1 to 4 times per year 08/06/2023 Do you belong to any clubs o r organizations such as yazidi groups, unions, fraternal or athletic groups, or [...] Recorded Patient Health Questionnaire-2 Score 0 11/09/2024 [facility]ational [facility] Questionnaire Answer Date [...] place to sleep or slept in a skilled nursing (including now)? No 08/06/2023 Sex and Gender Information Value Date Recorded Sex Assigned at Not on file Legal Sex Male 8:11 PM EDT Gender Identity Not on file Sexual Orientation Not on file documented as of this encounter Plan of Treatment Not on file documented as of this encounter Visit Diagnoses Not on filedocumented in this encounter Care Teams Poultry Grader Relationship Specialty Start Date End Date Linda Jansen PA [address] [facility] [address] [place] [address] PCP - General Family Medicine 08/06/23 Linda Jansen PA [address] [facility] [address] [place] [address] PCP - Medical [place] [employer] 02/22/23 04/25/25 documented as of this encounter
--- OUTSIDE RECORDS SUMMARY | 2025-05-09 08:43 | XMS_ITS | Encounter Summary ---
Author Organization [facility] Address [address] [place] [address] Care Team Providers Care Time Study Technologist Name Role Phone Linda Jansen Primary Care Provider [phone] Linda Jansen Unavailable [phone] Encounter Details Date Type Department Care Team (Late st Contact Info) Description 06/29/2024 [facility] [address] [facility] [address] [place] [address] Linda Jansen PA [address] [facility] 110 [place] [address] Social History Tobacco Use Types Packs/Day Years [...] any clubs o r organizations such as gnosticist groups, unions, fraternal or athletic groups, or [...] and heating? Not hard at all 08/06/2023 [facility] - Occupational Stress Questionnaire Answer Date [...] place to sleep or slept in a fci (including now)? No 08/06/2023 Sex and Gender Information Value Date Recorded Sex Assigned at Not on file Legal Sex Male 8:11 PM EDT Gender Identity Not on file Sexual Orientation Not on file documented as of this encounter Plan of Treatment Not on file documented as of this encounter Visit Diagnoses Not on filedocumented in this encounter Care Teams Time Study Technologist Relationship Specialty Start Date End Date Linda Jansen PA [address] [facility] [address] [place] [address] PCP - General Family Medicine 08/06/23 Linda Jansen PA [address] [facility] [address] [place] [address] PCP - Medical [place] [employer] 02/22/23 04/25/25 documented as of this encounter
--- OUTSIDE RECORDS SUMMARY | 2025-05-09 08:43 | XMS_ITS | Encounter Summary ---
Author Organization [facility] Address [address] [place] [address] Care Team Providers Care Director Of Recreation Therapy Name Role Phone Penny Duran MD Unavailable [phone] Source Comments In the event this information is protected by the Federal Confidentiality of Alcohol and Drug AbusePatient Records regulations: The Federal rules restrict any use of the information to criminally investigate or prosecute any alcohol or drug abuse patient.[facility] Encounter Details Date Type Department Care Team (Late st Contact Info) Description 09/16/2023 Get Medical Advice Cardiology [address] [place] [address] [place] [address] [place], [place] [id number] Upcoming appt question-important Social History Tobacco Use Types Packs/Day Years Used Date Smoking Tobacco: Never Smokeless Tobacco: Never Alcohol Use Standard Drinks/Week Comments Not Currently 0 (1 standard drink = 0.6 oz pur e alcohol) Area Deprivation Index Answer Date Francis rded National Score (1-100), lower number is lower ri sk 87 12/25/2022 State Score (1-10), lower number is lower risk 8 12/25/2022 Data from: https://www.neighborhoodatlas.[facility]/. Last address used for calculation [address] [facility] 12/25/2022 Sex and Gender Information Value Date [...] 10:30 AM EDT Office Visit Cardiology [address] [facility] [place] [address] PAF (paroxysmal atrial fibrillation) (HCC) [I48.0] 04/05/2026 8:00 AM EDT Office Visit Cardiology [address] [place] [phone] [place] [address] [place], [place] [id number] yearly follow up documented as of this encounter Visit Diagnoses Not on filedocumented in this encounter Care Teams Director Of Recreation Therapy Relationship Specialty [place] [address] [place] [address] Primary Staff Physician Cardiology 03/22/22 documented as of this encounter
--- OUTSIDE RECORDS SUMMARY | 2025-05-09 08:43 | XMS_ITS | Encounter Summary ---
Author Organization [facility] Address [address] [place] [address] Care Team Providers Care Crepe Laminator Operator Name Role Phone Penny Duran MD [facility] [phone] Source Comments In the event this information is protected by the Federal Confidentiality of Alcohol and Drug AbusePatient Records regulations: The Federal rules restrict any use of the information to criminally investigate or prosecute any alcohol or drug abuse patient.[facility] Encounter Details Date Type Department Care Team (Late st Contact Info) Description 2024 [place] [address] Provider, [facility] Medicare Coverage of Physical Exams Social History Tobacco Use Types Packs/Day Years Used Date Smoking Tobacco: Never Smokeless Tobacco: Never Alcohol Use Standard Drinks/Week Comments Not Currently 0 (1 standard drink = 0.6 oz pur e alcohol) Area Deprivation Index Answer Date Francis rded National Score (1-100), lower number is lower ri sk 87 12/25/2022 State Score (1-10), lower number is lower risk 8 12/25/2022 Data from: https://www.neighborhoodatlas.med[facility].edu/. Last address used for calculation [address] [place] [address] 12/25/2022 Sex and Gender Information Value Date [...] 10:30 AM EDT Office Visit Cardiology [address] [facility] [place] [address] PAF (paroxysmal atrial fibrillation) ([facility]) [I48.0] 04/05/2026 8:00 AM EDT Office Visit Cardiology [address] [place] [address] [place] [address] [place] [address] yearly follow up documented as of this encounter Visit Diagnoses Not on filedocumented in this encounter Care Teams Crepe Laminator Operator Relationship Specialty [place] [address] [place] [address] Primary Staff Physician Cardiology 03/22/22 documented as of this encounter
--- OUTSIDE RECORDS SUMMARY | 2025-05-09 08:43 | XMS_ITS | Encounter Summary ---
Author Organization [facility] Address [address] [place] [address] Care Team Providers Care Supervisor Of Communications Name Role Phone Linda Jansen Primary Care Provider Linda Jansen Unavailable [phone] Encounter Details Date Type Department Care Team (Late st Contact Info) Description 03/14/2025 Abstract [facility] [address] [email or web address] [address] [place] [address] Linda Jansen PA [address] [facility] [address] [place] [address] Social History Tobacco Use Types Packs/Day Years [...] often do you attend chur ch or advent services? 1 to 4 times per year 08/06/2023 Do you belong to any clubs o r organizations such as cheondoism groups, unions, fraternal or athletic groups, or [...] Recorded Patient Health Questionnaire-2 Score 0 03/01/2025 [facility]ational [facility] Questionnaire Answer Date [...] on filedocumented in this encounter Care Teams Supervisor Of Communications Relationship Specialty Start Date End Date Linda Jansen PA [address] [facility] [address] [place] [address] PCP - General Family Medicine 08/06/23 Linda Jansen PA [address] [facility] [address] [place] [address] PCP - Medical [place] [employer] 02/22/23 04/25/25 documented as of this encounter
--- OUTSIDE RECORDS SUMMARY | 2025-05-09 08:50 | XMS_ITS | CCD ---
Author Organization [facility] Team Providers Care Handkerchief Sample Clerk Name Role Phone Sedrick Ye Unavailable Unavailable Unavailable Unavailable Primary Care Provider UnavailIta Lockwood MD Unavailable Ita Tuttle MD Unavailable Ita Tuttle MD Unavailable [phone] ITA TUTTLE Referring Unavailable YE ., DR SEDRICK Whipple Primary Care Unavailable YE ., DR SEDRICK Whipple Admitting Unavailable YE ., DR SEDRICK Whipple Attending Unavailable YE ., DR SEDRICK Whipple Consulting Unavailable YE ., DR SEDRICK Whipple Primary Care Unavailable TIANA, DR TONY Florez Admitting Unavailjean-paul MONTIEL, DR TONY Florez Attending Unavailjean-paul MONTIEL, DR TONY Florez Consulting UnavailDIANE Cervantes Consulting Unavailable DIANE GUAJARDO Attending Unavailable AMANDA, DR BRIA Morales Consulting Unavailable YE ., DR SEDRICK Whipple Primary Care Unavailable DIANE GUAJARDO Admitting Unavailable DIANE GUAJARDO Consulting Unavailable SUKHDEEP ZUNIGA Admitting Unavailable JU, DR KIRSTIE Haque Consulting Unavailable SUKHDEEP ZUNIGA Attending Unavailable YE ., DR SEDRICK Whipple Primary Care Unavailable SUKHDEEP ZUNIGA Consulting Unavailable DIANE GUAJARDO Attending Unavailable DIANE GUAJARDO Consulting Unavailable YE ., DR SEDRICK Whipple Primary Care Unavailable DIANE GUAJARDO Admitting Unavailable JANAY PANDYA Consulting Unavailable SEDRICK YE Primary Care Unavailable DO CONSUELO OLSEN Attending Unavailable Ita Tuttle MD Unavailable [phone] Iesha Gamino Attending Unavailable Iesha Gamino Attending Unavailable Iesha Gamino Attending Unavailable Iesha Gamino Referring Unavailable MD Sedrick Ye Primary Care Provider [phone] DO Christian Carlos II Attending Provider [phone] NENO KeysC Linda Referring Provider [phone] MD Sedrick Ye Primary Care Provider DO Christian Carlos II Attending Provider SKYE Keys Referring Provider Linda Harris Primary Care Provider [phone] Linda Harris Unavailable TONY ARMSTRONG Attending Unavaila ble BILL TUTTLE R Referring Unavailable WATTARBILL R Attending Unavailable WATTAR BILL R Referring Unavailable WATTARCHANTELUL R Attending Unavailable Sedrick Ye MD Primary Care Provider Christian Carlos DO Attending Provider [phone] Hemjhonatan [employer]AYOUT WORKER-Linda Long Referring Provider NON STAFF Primary Care Provider Unavailjean-paul whipple [facility] Russell CAMACHO Attending Provider Christian Carlos DO Attending Provider [phone] Inderjit LYON-Linda Long Primary Care Provider Hannah Queen APRN Attending Provider [phone] Sedrick Ye MD Primary Care Provider [phone] Inderjit [employer] LAYOUT WORKER-Linda Long Referring Provider LINDA KEYS Attending Unavailable MAHAMED, EULALIO A Referring Unavailable MAHAMED EULALIO A Attending Unavailable BROWN, EULALIO A Referring Unavailable BROWN, EULALIO A Referring Unavailable MAHAMED, EULALIO A Attending Unavailable EULALIO IRBY A Referring Unavailable GRACE HONEYCUTT Attending Unavailable LINDA KEYS Referring Unavailable SEDRICK LYONS Attending Unavailable GRACE HONEYCUTT Attending Unavailable MAHAMED, EULALIO A Attending Unavailable BROWN, EULALIO A Referring Unavailable MAHAMED, EULALIO A Attending Unavailable MAHAMED, EULALIO A Referring Unavailable LINDA KEYS Attending Unavailable EULALIO IRBY A Attending Unavailable LINDA KEYS Attending Unavailable MAHAMED, EULALIO A Referring Unavailable BROWN, EULALIO A Referring Unavailable EULALIO IRBY Referring Unavailable EULALIO IRBY Attending Unavailable EULALIO IRBY Referring Unavailable Linda Keys Primary Care Unavailable Christian Carlos II Attending Unavaila ble Breanna II, Christian Li Admitting Unavaila ble Hannah Queen Attending Unavailable Hannah Queen Admitting Unavailable NON STAFF Primary Care Unavailable Inderjit Linda Referring Unavailable Sedrick Ye Primary Care Unavailable Christian Carlos II Attending Unavaila ble Breanna IIChristian Admitting Unavaila ble NON STAFF [facility] Admitting Unavailable Medications Current Medications Medication Drug Class(es) Dates Sig (Normalized) Sig (Original) amoxicillin 875 mg / clavulanate 125 mg oral tablet (2 sources) Penicillin-class Antibacterial Start: 09-15-2024 End: 09-22-2024 take 1 tablet by mouth in the morning amoxicillin-clavu lanate (Augmentin) 875-125 MG tablet Indications: Acute non-recurrent maxillary sinusitis Take 1 tablet (875 mg) by mouth in the morning and 1 tablet (875 mg) in the evening. Take with meals. Do all this for 7 days. 14 tablet 09/15/2024 09/22/2024 Active ascorbic acid 250 mg oral tablet (20 sources) Vitamin C take 1 tablet by mouth once daily Ascorbic Acid (vitamin C) 250 MG tablet Take 250 mg by mouth Daily Active aspirin 81 mg delayed release oral tablet (20 sources) Platelet Aggregation Inhibitor, Nonsteroidal Anti-inflammatory Drug Start: 07-30-2013 End: 09-15-2024 aspirin, enteric coated (ASPIRIN, ENTERIC COATED) 81 mg EC tablet Take 81 mg by mouth. 07/30/2013 Active Comment on above: Take 81 mg by mouth. b complex vitamins capsule (19 sources) take 1 capsule by mouth once daily b complex vitamins capsule Take 1 capsule by mouth Daily Active benzonatate 200 mg oral capsule (2 sources) Non-narcotic Antitussive Start: 09-29-2024 End: 10-06-2024 take 1 capsule by mouth three times daily as needed for cough benzonatate (Tessalon) 200 MG capsule Indications: Acute cough Take 1 capsule (200 mg) by mouth 3 (three) times a day as needed for cough for up to 7 days Do not crush or chew. 21 capsule 09/29/2024 10/06/2024 Active celecoxib 200 mg oral capsule (10 sources) Nonsteroidal Anti-inflammatory Drug Start: 10-28-2024 End: 12-27-2024 take 1 capsule by mouth once daily celecoxib (CeleBREX) 200 MG capsule Indications: S/P right knee arthroscopy Take 1 capsule (200 mg) by mouth Daily 30 capsule 1 10/28/2024 12/27/2024 Active Start: 08-13-2024 End: 11-11-2024 take 1 capsule by mouth in the morning for pain celecoxib (CeleBREX) 100 MG capsule Indications: Tear of medial meniscus of right knee, current, unspecified tear type, subsequent encounter Take 1 capsule (100 mg) by mouth in the morning and 1 capsule (100 mg) before bedtime. Take as needed for pain. 60 capsule 08/13/2024 11/11/2024 Active cholecalciferol 0.025 mg oral tablet (20 sources) Vitamin D take 1 tablet by mouth once daily cholecalciferol (Vitamin D-3) 25 MCG tablet Take 25 mcg by mouth Daily Active doxazosin 4 mg oral tablet (20 sources) alpha-Adrenergi c Frances Start: 05-25-20 23 End: 06-30-20 24 take 1 tablet by mouth once daily at bedtime doxazosin (CARDURA) 4 mg tablet TAKE 1 TABLET BY MOUTH EVERYDAY AT BEDTIME 90 tablet 3 06/30/2024 Active Start: 01-17-2023 End: 07-31-2023 take 1.5 tablets by mouth once daily at bedtime doxazosin (CARDURA) 2 mg tablet Take 1.5 tablets by mouth daily at bedtime. 135 tablet 1 01/17/2023 07/31/2023 Discontinued Start: 12-25-2022 take 1 tablet by marco th once daily at bedtime doxazosin (CARDURA) 2 mg tablet Take 1 tablet by mouth daily at bedtime. 90 tablet 1 12/25/2022 Active Start: 09-13-2022 End: 12-25-2022 take 1 tablet by mouth once daily at bedtime doxazosin (CARDURA) 1 mg tablet TAKE 1 TABLET BY MOUTH EVERYDAY AT BEDTIME 90 tablet 3 10/08/2022 12/25/2022 Discontinued Comment on above: Take 1 tablet by marco th daily at bedtime. TAKE 1 TABLET BY MARCO TH EVERYDAY AT BEDTIME Take 1.5 tablets by mouth daily at bedtime. doxepin hydrochloride 10 mg oral capsule (5 sources) Tricyclic Antidepressant End: doxepin (SINEquan) 10 MG capsule Take 10 mg by mouth as needed at bedtime for sleep 05/21/2024 Discontinued hydroCHLOROthiazide 25 mg / valsartan 320 mg oral tablet (20 sources) Thiazide Diuretic, Angiotensin 2 Receptor Frances Start: 020 End: 025 take 1 tablet by mouth once daily Valsartan-hydroCHL OROthiazide 320-25 mg per tablet Take 1 tablet by mouth once daily. 90 tablet 3 04/04/2025 Active take 1 tablet by marco th in the morning valsartan-hydroCHLOROthiazide (Diovan-HC T) 320-25 MG tablet Take 1 tablet by mouth in the morning. Active Comment on above: Take 1 tablet by marco th once daily. TAKE ONE TABLET BY M OUTH DAILY meloxicam 15 mg oral tablet (14 sources) Nonsteroidal Anti-inflammatory Drug Start: 01-08-20 End: 04-23-20 take 1 tablet by mouth once daily as needed for pain meloxicam (MOBIC) 15 mg tablet TAKE 1 TABLET (15 MG) BY MOUTH DAILY NEEDED FOR MILD PAIN 01/08/2024 Active nebivolol 5 mg oral tablet (20 sources) Start: 09-12-19 End: 09-28-19 take 1 tablet by mouth once daily nebivolol (BYSTOLIC) 5 mg tablet Indications: Prescription refill TAKE 1 TABLET BY MOUTH EVERY DAY 90 tablet 3 09/28/2024 Active Comment on above: Take 1 tablet by marco th once daily. 24 hr NIFEdipine 30 mg extended release oral tablet (20 sources) Dihydropyridine Calcium Channel Frances Start: 01-04-20 take 1 tablet by mouth once daily NIFEdipine XL (ADALAT CC) 30 mg 24 hr tablet Indications: Hypertension, unspecified type Take 1 tablet by mouth once daily. 90 tablet 3 01/03/2025 Active Start: 12-20-2021 End: 01-01-2025 take 1 tablet by mouth once daily NIFEdipine XL (ADALAT CC) 30 mg 24 hr tablet Indications: Hypertension, unspecified type take one tablet by mouth daily 90 tablet 3 01/05/2024 01/01/2025 Discontinued Start: 10-02-2018 take 1 tablet by [facility] once daily Start: 10-02-2018 take 1 tablet by [facility] twice daily Nifedipine 30 mg Tablet Extended Release 24hr Active 30 MG PO Twice daily October 02, 2018 1:00am take 30 mg by mouth twice daily NIFEDIPINE ER ORAL Take 30 mg by mouth twice daily. 0 Active take 1 tablet by [facility] twice daily NIFEdipine ER 30 MG Oral Tablet Extended Release 24 Hour Take 1 tablet twice daily Quantity: 0 Refills: 0 Ordered: 26-Jun-2021 DO Active Comment on above: Take 30 mg by mouth twice daily. Take 1 tablet by [facility] once daily. perflutren lipid microspheres 1.3 mL in NaCl (PF) 0.9% 10 mL injection (DEFINITY) (20 sources) Start: 01-17-2023 End: 04-17-2024 perflutren lipid microspheres 1.3 mL in NaCl (PF) 0.9% 10 mL injection (DEFINITY) Start: 12-12-2021 End: 03-13-2023 perflutren lipid microsphere s 1.3 mL in NaCl (PF) 0.9% 10 mL injection (DEFINITY) predniSONE 10 mg oral tablet (14 sources) Start: 09-30-2024 predniSONE (De ltasone) 10 MG tablet Indications: Right knee pain, unspecified chronicity As directed orally - Take 6 tabs day 1 and 2, 5 tabs day 3 and 4, 4 tabs day 5 and 6, 3 tabs day 7 and 8, 2 tabs day 9 and 10, and 1 tab day 11 and 12. 42 tablet 09/30/2024 Active Start: 06-10-2024 End: 07-27-2024 predniSONE (Deltasone) 20 MG tablet Indications: Strain of thoracic back region 3 tabs x 2 days, 2 tabs x 2 days, 1 1/2 tab x 2 days, 1 tab x 2 days, 1/2 tab x 2 days, then stop 16 tablet 06/10/2024 07/27/2024 Discontinued (Therapy completed) 125 ml sodium chloride 9 mg/ml prefilled syringe (20 sources) Start: 12-12-2021 End: 04-17-2024 sodium chloride 0.9 % (flush) 10 mL (BD POSIFLUSH) valsartan 320 mg oral tablet (4 sources) Angiotensin 2 Receptor Frances Start: 03-01-2025 take 1 tablet by mouth once daily Start: 03-01-2025 take 1 tablet by marco th once daily valsartan (Diovan) 320 MG tablet Indications: Primary hypertension Take 1 tablet (320 mg) by mouth Daily 30 tablet 2 03/01/2025 Active Completed/Discontinued Medications Medication Drug Class(es) Dates Sig (Normalized) Sig (Original) acetaminophen 325 mg / HYDROcodone bitartrate 5 mg oral tablet (6 sources) Opioid Agonist Start: 07-14-2020 End: 08-28-2021 take 1 tablet by mouth every four to six hours as needed for pain Hydrocodone-Acetam inophen ([place]) 5-325 mg tablet Discontinued 1 - 2 TAB PO EVERY 4-6 HOURS as needed for Pain 22 12July 14, 2020 August 28, 2021 3:10pm apixaban 5 mg oral tablet (20 sources) Factor Xa Inhibitor Start: 05-04-2020 End: 01-23-2024 take 1 tablet by mouth twice daily Apixaban (Eliquis) 5 mg Tablet Discontinued 5 MG PO Twice daily May 04, 2020 12:00am January 23, 2024 2:05pm Comment on above: Take by mouth twice daily. Take 1 tablet by marco th twice daily. betamethasone 3 mg/ml / betamethasone acetate 3 mg/ml injectable suspension (4 sources) Corticosteroid Start: 09-30-2024 End: 09-30-2024 betamethasone acetate-betamethas one sodium phosphate ([place]) injection 1.5 mg Start: 09-30-2024 End: 09-30-2024 1.5 mg, Intra-articular, Onc e PRN Procedure, Starting on Pascale 09/30/24 at 1629, For 1 dose doxycycline hyclate 100 mg oral tablet (6 sources) Tetracycline-class Drug Start: 07-14-2020 End: 08-28-2021 take 1 tablet by mouth twice daily Doxycycline Hyclate 100 mg tablet Discontinued 100 MG PO Twice daily 05 29July 14, 2020 1:00am August 28, 2021 3:10pm furosemide 40 mg oral tablet (20 sources) Loop Diuretic Start: 07-06-2020 End: 01-23-2024 take 1 tablet by mouth once daily in the morning Furosemide 40 mg tablet Discontinued 40 MG PO Every morning July 06, 2020 1:00am January 23, 2024 2:06pm Start: 05-04-2020 End: 07-06-2020 take 1 tablet by mouth twice daily Furosemide 20 mg tablet Discontinued 20 MG PO Twice daily May 04, 2020 12:00am July 06, 2020 5:50pm take 1 tablet by marco th twice daily furosemide (LASIX) 40 mg tablet Take 40 mg by mouth twice daily. 0 Active Comment on above: Take 40 mg by mouth twice daily. Take 1 tablet by marco th once daily. gabapentin 300 mg oral capsule (5 sources) Anti-epileptic Agent Start: 2024 End: 2024 take 1 capsule by mouth at bedtime gabapentin (Neurontin) 300 MG capsule Indications: S/P right knee arthroscopy Take 1 capsule (300 mg) by mouth at bedtime 30 capsule 09/30/2024 12/09/2024 Discontinued (Therapy completed) hydroCHLOROthiazide 25 mg / losartan potassium 100 mg oral tablet (6 sources) Thiazide Diuretic, Angiotensin 2 Receptor Frances Start: 2018 End: 2019 take 1 tablet by mouth once daily Losartan-Hydrochlor othiazide 100-25 mg tablet Discontinued 1 TAB PO Daily October 02, 2018 1:00am May 04, 2020 8:43am iv contrast (will be provided with radiology test) (20 sources) Start: 2021 End: 2021 inject 1 dose intravenously once iv contrast (will be provided with radiology test) CT Pulm Vein - No IV access, insert saline lock prior to the sedation, infusion, injection for imaging exam. Discontinue saline lock post exam. If Pt. has a central line or IVAD, may access for administration according to line specific nursing protocol. Once exam is complete flush line and de-access according to line specific nursing protocol in the CT contrast administration guidelines link. 1 Each 0 12/12/2021 03/22/2022 Discontinued (Course of therapy completed) Start: 12-12-2021 inject 1 dose intravenously on ce iv contrast (will be provided with radiology test) CT Pulm Vein - No IV access, insert saline lock prior to the sedation, infusion, injection for imaging exam. Discontinue saline lock post exam. If Pt. has a central line or IVAD, may access for administration according to line specific nursing protocol. Once exam is complete flush line and de-access according to line specific nursing protocol in the CT contrast administration guidelines link. 1 Each 0 12/12/2021 Active Comment on above: CT Pulm Vein - No IV access, insert saline lock prior to the sedation, infusion, injection for imaging exam. Discontinue saline lock post exam. If Pt. has a central line or IVAD, may access for administration according to line specific nursing protocol. Once exam is complete flush line and de-access according to line specific nursing protocol in the CT contrast administration guidelines link. metoprolol tartrate 50 mg oral tablet (6 sources) beta-Adrenergic Frances Start: End: take 1 tablet by mouth twice daily Metoprolol Tartrate 50 mg Tablet Discontinued 50 MG PO Twice daily October 02, 2018 1:00am May 06, 2020 1:58pm pantoprazole 40 mg delayed release oral tablet (20 sources) Proton Pump Inhibitor Start: End: take 1 tablet by mouth once daily pantoprazole DR (PROTONIX) 40 mg tablet Take 1 tablet by mouth once daily. 30 tablet 0 12/04/2021 03/22/2022 Discontinued (Course of therapy completed) Comment on above: Take 1 tablet by marco th once daily. microencapsulated potassium chloride 10 meq extended release oral tablet (20 sources) Start: End: take 1 tablet by mouth once daily potassium chloride ER (K-DUR, KLOR-CON) 10 mEq tablet Take 1 tablet by mouth once daily. 90 tablet 3 01/10/2022 05/10/2022 Discontinued (Clinical Decision) Start: 10-26-2021 take 1 tablet by marco th once daily KLOR-CON M20 20 mEq tablet TAKE 1 TABLET BY MOUTH EVERY DAY 90 tablet 3 10/26/2021 Active Start: 10-02-2018 End: 04-23-2024 take 1 tablet by mouth once daily in the morning Potassium Chloride 20 mEq Tablet Extended Release Discontinued 20 MEQ PO Every morning October 02, 2018 1:00am April 23, 2024 2:59pm Comment on above: TAKE 1 TABLET BY MARCO TH EVERY DAY Take 1 tablet by marco once daily. sildenafil 100 mg oral tablet (20 sources) Phosphodiesterase 5 Inhibitor Start: 08-29-2021 End: 07-24-2024 Sildenafil (Viagra) 100 mg Tablet Discontinued 50 MG PO Daily as needed for Erectile Dysfunction August 29, 2021 1:00am July 24, 2024 11:02am take 1 tablet by marco th every twenty-four hours as needed sildenafil (Viagra) 100 MG tablet Take 100 mg by mouth Daily as needed for erectile dysfunction Active sildenafil citra te (VIAGRA ORAL) Take by mouth as needed. Active sildenafil citra te (VIAGRA ORAL) Take by mouth as needed. 0 Active Comment on above: Take by mouth as nee ded. sotalol hydrochloride 80 mg oral tablet (20 sources) Antiarrhythmic Start: 12-21-19 End: 05-10-20 take 1 tablet by mouth twice daily sotalol (BETAPACE) 80 mg tablet Indications: Atrial fibrillation, persistent (HCC) Take 1 tablet by mouth twice daily. 180 tablet 3 01/10/2022 05/10/2022 Discontinued (Discontinued by another Health Care Provider) Start: 05-05-2020 End: 01-23-2024 take 1 tablet by mouth every twelve hours Sotalol 80 mg Tablet Discontinued 80 MG PO Q12H 60 30 May 05, 2020 12:00am January 23, 2024 2:06pm Comment on above: Take 80 mg by mouth twice daily. Take 1 tablet by marco twice daily. spironolactone 25 mg oral tablet (1 source) Aldosterone Antagonist Start: 10-30-19 take 1 tablet by mouth once daily Spironolactone 25 MG Oral Tablet TAKE 1 TABLET DAILY. Quantity: 90 Refills: 3 Ordered: 29-Oct-2021 Tera Davison MD Start : 29-Oct-2021 Active new start tiZANidine 4 mg oral tablet (12 sources) Central alpha-2 Adrenergic Agonist Start: 06-10-20 End: 07-27-20 take 1 tablet by mouth every eight hours as needed for muscle spasms and muscle spasms tiZANidine (Zanaflex) 4 MG tablet Indications: Muscle spasm Take 1 tablet (4 mg) by mouth every 8 (eight) hours if needed for muscle spasms for up to 10 days 30 tablet 06/10/2024 07/27/2024 Discontinued Problems Active Problems Problem Classification Problem Date Documented Date Episodic/Chronic Administrative/social admission (3 sources) Repeated prescription; Translations: [Encounter for issue of repeat prescription] Episodic Allergic reactions (3 sources) Contact dermatitis; Translations: [Unspecified contact dermatitis, unspecified cause] 02-19-2025 Episodic Aortic; peripheral; and visceral artery aneurysms (20 sources) Ascending aorta dilatation; Translations: [Thoracic aortic ectasia] Onset: 02-09-2024 Chronic Cardiac dysrhythmias (20 sources) Paroxysmal atrial fibrillation; Translations: [Atrial fibrillation] Onset: 09-27-2021 Resolved: 06-09-2024 09-27-2021 Chronic Comment on above: Problem List clean-u p per request of Phys. EHR Cmte Cardiac dysrhythmias (11 sources) Palpitations; Translations: [Palpitations] Episodic Coagulation and hemorrhagic disorders (20 sources) Thrombophilia; Translations: [Other thrombophilia] Onset: 02-09-2024 02-09-2024 Chronic Coronary atherosclerosis and other heart disease (1 source) Calcification of coronary artery; Translations: [Atherosclerotic heart disease of [place] coronary artery without angina pectoris] 09-21-2024 Chronic Crushing injury or internal injury (4 sources) Crushing injury of right foot, initial encounter; Translations: [CRUSHING INJURY RIGHT FOOT INITIAL] Onset: 12-24-2022 Episodic Diabetes mellitus without complication (2 sources) Impaired fasting glycemia; Translations: [Impaired fasting glucose] 03-01-2025 Episodic Diseases of white blood cells (20 sources) Lymphocytosis; Translations: [Lymphocytosis (symptomatic)] Onset: 01-02-2024 01-27-2024 Chronic E Codes: Struck by; against (1 source) Other cause of strike by thrown, projected or falling object, initial encounter; Translations: [OTH CAUSE STRIK THRWN/FALL OBJ INIT] Onset: 11-14-2022 Episodic Essential hypertension (20 sources) Essential hypertension; Translations: [Unspecified essential hypertension] Onset: 09-27-2021 09-27-2021 Chronic Comment on above: Problem List clean-u p per request of Phys. EHR Cmte Fracture of upper limb (4 sources) Closed fracture of phalanx of finger; Translations: [Fracture of unspecified phalanx of unspecified finger, initial encounter for closed fracture] 07-24-2024 Episodic Joint disorders and dislocations; trauma-related (2 sources) Tear of medial meniscus of knee; Translations: [Other tear of medial meniscus, current injury, right knee, subsequent encounter] 06-18-2024 Episodic Nonspecific chest pain (8 sources) Chest pain; Translations: [Chest pain, unspecified] Episodic Osteoarthritis (3 sources) Degenerative joint disease of ankle AND/OR foot; Translations: [Primary osteoarthritis, unspecified ankle and foot] Onset: 03-01-2025 03-01-2025 Chronic Other connective tissue disease (1 source) Synovitis and tenosynovitis, unspecified; Translations: [SYNOVITIS AND TENOSYNOVITIS UNS] Onset: 01-22-2023 Episodic Other connective tissue disease (4 sources) Spasm; Translations: [Other muscle spasm] 06-18-2024 Episodic Other connective tissue disease (2 sources) Pain of left hand; Translations: [Pain in left hand] 09-30-2024 Episodic Other connective tissue disease (4 sources) Pain in finger; Translations: [Pain in unspecified finger(s)] 07-24-2024 Episodic Other connective tissue disease (2 sources) Cramp; Translations: [Cramp and spasm] 03-01-2025 Episodic Other injuries and conditions due to external causes (3 sources) Unspecified injury of right ankle, initial encounter; Translations: [UNSPECIFIED INJURY RT ANKLE INITIAL] Onset: 10-09-2022 Episodic Other male genital disorders (20 sources) Male erectile dysfunction, unspecified; Translations: [Impotence of organic origin] Onset: 02-09-2024 02-09-2024 Chronic Other non-traumatic joint disorders (2 sources) Pain in right knee; Translations: [Pain in joint, lower leg] 09-30-2024 Episodic Other nutritional; endocrine; and metabolic disorders (8 sources) Overweight in adulthood with body mass index of 25 or more but less than 30; Translations: [Overweight] Episodic Other upper respiratory infections (2 sources) Acute maxillary sinusitis; Translations: [Acute maxillary sinusitis, unspecified] 09-15-2024 Episodic Nanda-; endo-; and myocarditis; cardiomyopathy (except that caused by tuberculosis or sexually transmitted disease) (20 sources) Cardiomyopathy; Translations: [Cardiomyopathy, unspecified] Onset: 02-09-2024 Resolved: 03-01-2025 08-06-2023 Chronic Comment on above: Problem List clean-u p per request of Phys. EHR Cmte Peripheral and visceral atherosclerosis (20 sources) Arteriosclerotic vascular disease; Translations: [Unspecified atherosclerosis] Onset: 02-09-2024 Chronic Residual codes; unclassified (20 sources) Sleep apnea; Translations: [Unspecified sleep apnea] Onset: 08-05-2023 08-05-2023 Chronic Residual codes; unclassified (20 sources) Obstructive sleep apnea syndrome; Translations: [Obstructive sleep apnea (adult) (pediatric)] Onset: 09-27-2021 09-27-2021 Chronic Residual codes; unclassified (5 sources) Non-smoker; Translations: [Other specified conditions influencing health status] Episodic Residual codes; unclassified (1 source) H/O: atrial fibrillation; Translations: [Other specified postprocedural states] Episodic Residual codes; unclassified (6 sources) History of arthroscopy of knee joint; Translations: [Other specified postprocedural states] 08-24-2024 Episodic Sprains and strains (4 sources) Strain of thoracic region; Translations: [Strain of muscle and tendon of back wall of thorax, initial encounter] 06-18-2024 Episodic Superficial injury; contusion (5 sources) Contusion of right ankle, initial encounter; Translations: [CONTUSION RIGHT ANKLE INITIAL ENC] Onset: 12-30-2022 Episodic Unclassified (2 sources) Right knee pain, unspecified chronicity 10-02-2024 Past or Other Problems Problem Classification Problem Date Documented Date Episodic/Chronic Calculus of urinary tract (20 sources) History of calculus of kidney; Translations: [Personal history of urinary calculi] Onset: 04-14-2023 Resolved: 02-09-2024 02-09-2024 Episodic Complications of surgical procedures or medical care (20 sources) Drug therapy finding; Translations: [Unspecified adverse effect of drug or medicament, initial encounter] Onset: 02-09-2024 Resolved: 03-01-2025 08-06-2023 Episodic Comment on above: Problem List clean-u p per request of Phys. 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 EHR Cmte Other and unspecified benign neoplasm (20 sources) History of polyp of colon; Translations: [History of colon polyps] Onset: 05-21-2024 05-21-2024 Episodic Other connective tissue disease (1 source) Pain in left finger(s); Translations: [Pain in left finger(s)] Onset: 07-24-2024 Episodic Other diseases of kidney and ureters (20 sources) Hydronephrosis; Translations: [Unspecified hydronephrosis] Onset: 04-14-2023 Resolved: 02-09-2024 02-09-2024 Episodic Other infections; including parasitic (20 sources) Personal history of other infectious and parasitic diseases; Translations: [History of COVID-19] Onset: 02-09-2024 02-09-2024 Episodic Other lower respiratory disease (20 sources) Dyspnea; Translations: [Other respiratory abnormalities] Onset: 02-09-2024 Resolved: 06-09-2024 06-09-2024 Episodic Other lower respiratory disease (20 sources) Nodule of lung; Translations: [Solitary pulmonary nodule] Onset: 02-09-2024 Episodic Unclassified (3 sources) Never smoked tobacco; Translations: [Never a smoker] Viral infection (20 sources) Disease caused by 2019-nCoV; Translations: [COVID-19] Onset: 08-05-2023 Resolved: 02-09-2024 08-06-2023 Episodic Comment on above: Problem List clean-u p per request of Phys. EHR Cmte Results Test Name Value Interpretation Reference Range Facility ECG COMPLETEon 04-04-2025 Atrial Rate 76 BPM [facility] Calculated P [place] 13 degrees [facility] Calculated R [place] 0 degrees [facility] Calculated T [place] 18 degrees [facility] P-R Interval 178 ms [facility] QRS Duration 86 ms [facility] QT Interval 378 ms [facility] QTC Calculation (Bazett) 425 ms [facility] Ventricular Rate 76 BPM [facility] NORMAL SINUS RHYTHM NORMAL ECG Confirmed by JADE DAS MD () on 04/04/2025 5:11:38 PM [facility] NAME : DARIUS VALERA PID : [id number] : 1960 Gender : Male Race : ORD : Procedure Date : Apr 04 2025 14:34:56 Edit Date : Apr 04 2025 17:11:41 Diagnosis: NORMAL SINUS RHYTHM NORMAL ECG Confirmed by JADE DAS MD () on 04/04/2025 5:11:38 PM Test Reason : Location : 192 : AVCRD Overread By : JADE DAS MD Edited By : JADE DAS MD Referred By : , Acquired by : , [facility] HEMOGLOBIN A1con 03-19-2025 HbA1c (Bld) [Mass fraction] % Normal <5.7 [facility] Comment on above: Result Comment: Veri fied by repeat analysis. For the purpose of screening for the presence of diabetes: <5.7% Consistent with the absence of diabetes 5.7-6.4% Consistent with increased risk for diabetes (prediabetes) > or =6.5% Consistent with diabetes This assay result is consistent with a decreased risk of diabetes. Currently, no consensus exists regarding use of hemoglobin A1c for diagnosis of diabetes in children. According to [place] Diabetes Association (ADA) guidelines, hemoglobin A1c <7.0% represents optimal control in non- diabetic patients. Different metrics may apply to specific patient populations. Standards of Medical Care in Diabetes(ADA). Performed By: #### 5 363, [id number], 37472, 496, 7890 #### [facility] [address], [address] [place] [id number] Knockout Man: Memo Marquis MD LIPID PANEL, STANDARDon - Cholesterol [Mass/Vol] 140 mg/dL Normal <200 [facility] Comment on above: Order Comment: FASTI NG:YES FASTING: YES Performed By: #### 5 363, 95265, 47272, 496, 7600 #### [facility] [address], [address] [place] [address] Knockout Man: Memo Marquis MD Cholesterol in HDL [Mass/Vol] 67 mg/dL Normal > OR = 40 [facility] Comment on above: Order Comment: FASTI NG:YES FASTING: YES Performed By: #### 5 363, 80203, 42368, 496, 7600 #### [facility] [address], [address] [place] [address] Knockout Man: Memo Marquis MD Cholesterol in LDL [Mass/Vol] 60 mg/dL Normal [facility] Comment on above: Order Comment: FASTI NG:YES FASTING: YES Result Comment: Refe rence range: <100 Desirable range <100 mg/dL for primary prevention; <70 mg/dL for patients with CHD or diabetic patients with > or = 2 CHD risk factors. LDL-C is now calculated using the Fely calculation, which is a validated novel method providing better accuracy than the Friedewald equation in the estimation of LDL-C. Hilario VALDIVIA et al. ARNULFO. 2013;310(19): 5410-6739 (http://education.Edfolio.Meilishuo/faq/CSD226) Performed By: #### 5 363, 86838, 85426, 496, 7600 #### [facility] [address], [address] [place] [address] Knockout Man: Memo Marquis MD Cholesterol.total/Chol esterol in HDL [Mass ratio] 2.1 {ratio} Normal <5.0 [facility] Comment on above: Order Comment: FASTI NG:YES FASTING: YES Performed By: #### 5 363, 03397, 09246, 496, 7600 #### [facility] [address], [address] [place] [address] Knockout Man: Memo Marquis MD NON HDL CHOLESTEROL 73 mg/dL (calc) Normal <130 [facility] Comment on above: Order Comment: FASTI NG:YES FASTING: YES Result Comment: For patients with diabetes plus 1 major ASCVD risk factor, treating to a non-HDL-C goal of <100 mg/dL (LDL-C of <70 mg/dL) is considered a therapeutic option. Performed By: #### 5 363, 55601, 66617, 496, 7600 #### [facility] [place] [address] Knockout Man: Memo Marquis MD Triglyceride [Mass/Vol] 53 mg/dL Normal <150 [facility] Comment on above: Order Comment: FASTI NG:YES FASTING: YES Performed By: #### 5 363, 41623, 84973, 496, 7600 #### [facility] [address], [address] [place] [address] Knockout Man: Memo Marquis MD PSA, TOTALon 03-19-2025 PSA, TOTAL 0.62 ng/mL Normal < OR = 4.00 [facility] Comment on above: Result Comment: The total PSA value from this assay system is standardized against the WHO standard. The test result will be approximately 20% lower when compared to the equimolar-standardized total PSA ([place]). Comparison of serial PSA results should be interpreted with this fact in mind. This test was performed using the Siemens chemiluminescent method. Values obtained from different assay methods cannot be used interchangeably. PSA levels, regardless of value, should not be interpreted as absolute evidence of the presence or absence of disease. Performed By: #### 5 363, 22234, 37884, 496, 7600 #### [facility] [address], [address] [place] [address] Knockout Man: Memo Marquis MD TSH W/REFLEX TO FT4on 2024 TSH W/REFLEX TO FT4 0.97 mIU/L Normal 0.40-4.50 [facility] Comment on above: Performed By: #### 5 363, 63868, 78238, 496, 7600 #### [facility] [place] [address] Knockout Man: Memo Marquis MD VITAMIN D,25-OH,TOTAL,IAon 0 03-19-2025 VITAMIN D,25-OH,TOTAL,IA 58 ng/mL Normal 30-100 [facility] Comment on above: Result Comment: Katie min D Status 25-OH Vitamin D: Deficiency: <20 ng/mL Insufficiency: 20 - 29 ng/mL Optimal: > or = 30 ng/mL For 25-OH Vitamin D testing on patients on D2-supplementation and patients for whom quantitation of D2 and D3 fractions is required, the QuestAssureD(TM) 25-OH VIT D, (D2,D3), LC/MS/MS is recommended: order code 87460 (patients >2yrs). See Note 1 Note 1 For additional information, please refer to http://education.StartupDigest/faq/VFK070 (This link is being provided for informational/ educational purposes only.) Performed By: #### 5 363, 26691, 24743, 496, 8510 #### [facility] [address], [address] [place] [phone] Knockout Man: Memo Marquis MD PATHOLOGY REQUEST FOR LAB CO RPon 02-15-2025 PATHOLOGY REQUEST FOR LAB REINA [facility] Comment on above: See report. Scanned copy available in EMR. [facility] Alanine aminotransferase [En zymatic activity/volume] in Serum or Plasmaon 02-10-2025 ALT [Catalytic activity/Vol] 31 U/L Normal 7-52 [facility] Comment on above: Performed By: #### C MP, DIFF CBC ####[facility] [id number] [place] [address] [facility] Albumin [Mass/volume] in Ser um or Plasma by Bromocresol green (BCG) dye binding methoOrdered By: Christian Carlos on 02-10-2025 Albumin BCG dye [Mass/Vol] 4.7 g/dL 3.5-5.7 [facility] Alkaline phosphatase [Enzyma tic activity/volume] in Serum or Plasmaon 02-10-2025 ALP [Catalytic activity/Vol] 88 U/L Normal 34-104 [facility] Comment on above: Performed By: #### C MP, DIFF CBC ####[facility] [id number] [place] [address] [facility] Anisocytosis [Presence] in B lood by Light microscopyOrdered By: Christian Carlos on 02-10-2025 Anisocytosis Ql (Bld) Slight Normal [facility] Comment on above: Performed By: #### C MP, DIFF CBC ####[facility] Aspartate aminotransferase [ Enzymatic activity/volume] in Serum or Plasmaon 02-10-2025 AST [Catalytic activity/Vol] 38 U/L Normal 13-39 [facility] Comment on above: Performed By: #### C MP, DIFF CBC ####[place] [id number] [address] Basophils Auto (Bld) [#/Vol] Ordered By: Christian Carlos on 02-10-2025 Basophils (Bld) [#/Vol] N/A [facility] Basophils/100 WBC Auto (Bld) Ordered By: Christian Carlos on 02-10-2025 Basophils/100 WBC (Bld) N/A [facility] Bilirubin.total [Mass/volume ] in Serum or Plasmaon 02-10-2025 Bilirubin [Mass/Vol] 1.9 mg/dL High 0.3-1.0 [facility] Comment on above: Samples from patient s who have taken Naproxen have shown spurious elevation in Total Bilirubin levels. A metabolite of Naproxen, O-desmethylnaproxen, has been shown to interfere with the Jendrassik-Grof method for measuring Total Bilirubin. Samples from patient s who have taken Naproxen have shown spurious elevation in Total Bilirubin levels. A metabolite of Naproxen, O-desmethylnaproxen, has been shown to interfere with the Jendrassik-Grof method for measuring Total Bilirubin. Result Comment: Samp les from patients who have taken Naproxen have shown spurious elevation in Total Bilirubin levels. A metabolite of Naproxen, O-desmethylnaproxen, has been shown to interfere with the Jendrassik-Grof method for measuring Total Bilirubin. Performed By: #### C MP, DIFF CBC ####[facility] [place] [id number] [facility] COAGULATION PROFILEon 2024 aPTT Coag (Bld) [Time] 30.1 s 25.1 - 36.5 s [facility] Comment on above: A hematocrit value g reater than 55% may lead to inaccurate results in coagulation testing. Patients having hematocrit values >55% require a special collection tube for coagulation studies. Please contact the laboratory at [phone] for redraw instructions. INR Coag (PPP) [Relative time] 1 {INR} [facility] Comment on above: INR Therapeutic Rang e A) Pre- and Peroperative OAT started two weeks before surgery. NOT HIP SURGERY: 1.5 - 2.5 HIP SURGERY: 2 - 3 B) Primary and secondary prevention of venous THROMBOSIS: 2 - 3 C) Active venous thrombosis, pulmonary embolism and prevention of recurrent venous thrombosis: 2 - 3 D) Prevention of arterial thromboembolism including patients with mechanical heart valves: 3 - 4.5 PT Coag (PPP) [Time] 11.1 s 9.0 - 1 2.9 s [facility] [employer] Comment on above: A hematocrit value g reater than 55% may lead to inaccurate results in coagulation testing. Patients having hematocrit values >55% require a special collection tube for coagulation studies. Please contact the laboratory at [phone] for redraw instructions. STAT [facility] guided [facility] marrow bx/asp iron 02-10-2025 CT guided bone marrow bx/aspir [facility] [place] [address] CT Scan Report Signed Patient: Darius Valera MR#: [id number] 10 : 1960 Acct:[id number] Age/Sex: 64 / M ADM Date: 02/10/25 Loc: CT Room: Type: [facility] Attending Dr: Christian Carlos II DO [...] local anesthesia. Utilizing CT guidance, an 11-gauge OnControl biopsy needle was advanced into the right [...] Jr., D.OCarrie 02/10/2025 11:08 AM Dictation Location: [place] [address] Transcribed By: [facility] 02/10/25 1108 Dictated By: Garcia Vanegas Jr, DO 02/10/25 1102 Signed By: 02/10/25 1108 Normal [facility] Calcium [Mass/volume] in Ser um or Plasmaon 02-10-2025 Calcium [Mass/Vol] 9.3 mg/dL Normal 8.6-10.3 [facility] Comment on above: Performed By: #### C MP, DIFF CBC ####[place] [id number] [place] [id number] [facility] Carbon dioxide, total [Moles /volume] in Serum or Plasmaon 02-10-2025 CO2 [Moles/Vol] 28.6 mmol/L Normal 21.0-31.0 [facility] Comment on above: Performed By: #### C MP, DIFF CBC ####[facility] [place] [id number] [facility] Chloride [Moles/volume] in S hesham or Plasmaon 02-10-2025 Chloride [Moles/Vol] 106 mmol/L Normal 98-107 [facility] Comment on above: Performed By: #### C MP, DIFF CBC ####[place] [id number] [facility] Coagulation Profileon 2024 aPTT Coag (Bld) [Time] 30.1 s Normal 25.1-36.5 [facility] Comment on above: Order Comment: STAT FOR CT Result Comment: A he matocrit value greater than 55% may lead to inaccurate results in coagulation testing. Patients having hematocrit values >55% require a special collection tube for coagulation studies. Please contact the laboratory at [phone] for redraw instructions. PERFORMED BY: [place] [address] PATHOLOGIST [employer] DANIELLE QUINONES M.D. Performed By: #### P P #### [address] Metabolic Pane [facility] 02-10-2025 Albumin [Mass/Vol] 4.7 g/dL Normal 3.5-5.7 [facility] Comment on above: Performed By: #### C MP, DIFF CBC ####[address] CREATININE CLR CALC PHARMACY 93.99 Normal [facility] Comment on above: Result Comment: PERF ORMED BY: [facility] [address] [place] [address] PATHOLOGIST [employer] DANIELLE QUINONES M.D. Performed By: #### C MP, DIFF CBC ####[address] GFR/1.73 sq M.predicted MDRD (S/P/Bld) [Vol rate/Area] mL/min/{1.73_m2} Normal [facility] Comment on above: Performed By: #### C MP, DIFF CBC ####[address] [facility] 02-10-2025 Creatinine (U) [Mass/Vol] 0.86 mg/dL 0.70 - 1.30 mg/dL [facility] ESTIMATED GFR [facility] Globulin (S) [Mass/Vol] 2 g[facility] and review of laboratory results Abnormal [facility] Creatinine [Mass/volume] in Serum or PlasmaOrdered By: Christian Carlos on 02-10-2025 Creatinine [Mass/Vol] 0.86 mg/dL Normal 0.70-1.30 [facility] Comment on above: Performed By: #### C MP, DIFF CBC ####[place] [id number] [facility] Dacrocytes [Presence] in Blo od by Light microscopyOrdered By: Christian Carlos on 02-10-2025 Dacrocytes LM Ql (Bld) Slight Fi [facility] Diff and CBCon 02-10-2025 Mean Corpuscular HGB Conc 35.2 g/dL Normal 32.5-35.6 [facility] Comment on above: Performed By: #### C MP, DIFF CBC ####[place] [id number] [facility] Ovalocytes Slight Normal [facility] Comment on above: Performed By: #### C MP, DIFF CBC ####[place] [id number] [facility] Platelet Estimate Normal Normal Normal [facility] Comment on above: Performed By: #### C MP, DIFF CBC ####[place] [id number] [facility] Platelet Morphology Normal Normal Normal [facility] Comment on above: Result Comment: PERF ORMED BY: [facility] [address] [place] [place] [address] PATHOLOGIST [employer] DANIELLE QUINONES M.D. Performed By: #### C MP, DIFF CBC ####[place] [id number] [facility] Poikilocytosis Slight Normal [facility] Comment on above: Performed By: #### C MP, DIFF CBC ####[place] [id number] [facility] Polychromasia Slight Normal [facility] Comment on above: Performed By: #### C MP, DIFF CBC ####[place] [id number] [facility] Tear Drop Cells Slight Normal [facility] Comment on above: Performed By: #### C MP, DIFF CBC ####[place] [id number] [facility] White Blood Count 20.7 [CFU]/mL High 4.1-10.5 [facility] Comment on above: Performed By: #### C MP, DIFF CBC ####[address] Eosinophils Auto (Bld) [#/Vo l]Ordered By: Christian Carlos on 02-10-2025 Eosinophils (Bld) [#/Vol] N/A [facility] Eosinophils/100 WBC Auto (Bl d)Ordered By: Christian Carlos on 02-10-2025 Eosinophils/100 WBC (Bld) N/A [facility] Eosinophils/100 leukocytes i n Blood by Manual countOrdered By: Christian Carlos on 02-10-2025 Eosinophils/100 WBC (Bld) 1 % Normal 1-3 [facility] Comment on above: Performed By: #### C MP, DIFF CBC ####[address] Erythrocyte distribution wid th [Ratio] by Automated countOrdered By: Christian Carlos on 02-10-2025 Erythrocyte distribution width (RBC) [Ratio] 13.4 % Normal 12.0-14.8 [facility] Comment on above: Performed By: #### C MP, DIFF CBC ####[address] Erythrocyte morphology findi ng [Identifier] in BloodOrdered By: Christian Carlos on 02-10-2025 RBC morphology finding Nom (Bld) N/A [facility] Erythrocytes [#/volume] in B lood by Automated countOrdered By: Christian Carlos on 02-10-2025 RBC (Bld) [#/Vol] 3.98 10*6/uL Normal 3.90-5.60 [facility] Comment on above: Performed By: #### C MP, DIFF CBC ####[address] Free K+L LT Chains, Qn, Son 02-10-2025 Free Zeba Light Chains, S 16.3 mg/L Normal 3.3-19.4 [facility] Comment on above: Performed By: #### K APPA, JIGAR SERUM, SPE ####[facility] , Free Lambda Light Chains, S 10.6 mg/L Normal 5.7-26.3 [facility] Comment on above: Performed By: #### K APPA, JIGAR SERUM, SPE ####[facility] , Zeba/Lambda Ratio, S 1.54 Normal 0.26-1.65 [facility] Comment on above: Result Comment: Perf ormed at: CB - [facility] [address] [id number] Wiping Rag Washer: Chad Mccall PhD, Phone: [phone] PERFORMED BY: [facility] [address] [place] [address] PATHOLOGIST [employer] DANIELLE QUINONES M.D. Performed By: #### K APPA, JIGAR SERUM, SPE ####[facility] , Glucose [Mass/volume] in Ser um or Plasmaon 02-10-2025 Glucose [Mass/Vol] 106 mg/dL High 70-100 [facility] Comment on above: Random Glucose Refer ence Range is dependent on time and content of last meal. Glucose of more than 200 mg/dL in a nonstressed, ambulatory subject supports the diagnosis of Diabetes Mellitus. ADA recommended reference range ADA recommended refe rence rangeRandom Glucose Reference Range is dependent on time and content of last meal. Glucose of more than 200 mg/dL in a nonstressed, ambulatory subject supports the diagnosis of Diabetes Mellitus. Result Comment: Ragland om Glucose Reference Range is dependent on time and content of last meal. Glucose of more than 200 mg/dL in a nonstressed, ambulatory subject supports the diagnosis of Diabetes Mellitus. ADA recommended reference range Performed By: #### C MP, DIFF CBC ####[facility] [id number] [place] [address] [facility] Hematocrit [Volume Fraction] of Blood by Automated countOrdered By: Christian Carlos on 02-10-2025 Hematocrit (Bld) [Volume fraction] 38.6 % Low 38.8-50.0 [facility] Comment on above: Performed By: #### C MP, DIFF CBC ####[facility] [id number] Hemoglobin [Mass/volume] in BloodOrdered By: Christian Carlos on 02-10-2025 Hemoglobin (Bld) [Mass/Vol] 13.6 g/dL Normal 13.0-17.0 [facility] Comment on above: Performed By: #### C MP, DIFF CBC ####[facility] [id number] INR in Platelet poor plasma by Coagulation assayOrdered By: Christian Carlos on 02-10-2025 INR Coag (PPP) [Relative time] 1.0 {INR} Normal [facility] Comment on above: INR Therapeutic Rang e A) Pre- and Peroperative OAT started two weeks before surgery. NOT HIP SURGERY: 1.5 - 2.5 HIP SURGERY: 2 - 3B) Primary and secondary prevention of venous THROMBOSIS: 2 - 3C) Active venous thrombosis, pulmonary embolismand prevention of recurrent venous thrombosis: 2 - 3D) Prevention of arterial thromboembolismincluding patients with mechanical heart valves: 3 - 4.5 Order Comment: STAT FOR CT Result Comment: INR Therapeutic Range A) Pre- and [...] with mechanical heart valves: 3 - 4.5 Performed By: #### P P #### [facility] [address] Immunofixation,Serumon 02-10 Immunofixation, Serum Comment Normal . [facility] Comment on above: Result Comment: No m onoclonality detected. Performed By: #### K APPA, JIGAR SERUM, SPE ####[facility] , Immunoglobulin A, Serum 146 mg/dL Normal 61-437 [facility] Comment on above: Performed By: #### K APPA, JIGAR SERUM, SPE ####[facility] , Immunoglobulin G 714 mg/dL Normal 603-1613 [facility] Comment on above: Performed By: #### K APPA, JIGAR SERUM, SPE ####[facility] , Immunoglobulin M, Serum 24 mg/dL Normal 20-172 [facility] Comment on above: Result Comment: Resu lt confirmed on concentration. Performed at: - [facility] [address] [id number] Wiping Rag Washer: Chad Mccall PhD, Phone: [phone] Performed By: #### K APPA, JIGAR SERUM, SPE ####[facility] , Leukocytes [#/volume] correc christophe for nucleated erythrocytes in Blood by Automated counOrdered By: Christian Carlos on 02-10-2025 WBC corrected for nucl RBC Auto (Bld) [#/Vol] 20.7 10*3/uL High 4.1-10.5 [facility] Leukocytes [#/volume] in Blo od by Automated countOrdered By: Christian Carlos on 02-10-2025 WBC (Bld) [#/Vol] 20.7 10*3/uL High 4.1-10.5 [facility] Comment on above: Performed By: #### C MP, DIFF CBC ####[facility] [id number] [address] Lymphocytes Auto (Bld) [#/Vo l]Ordered By: Christian Carlos on 02-10-2025 Lymphocytes (Bld) [#/Vol] N/A [facility] Lymphocytes/100 WBC Auto (Bl d)Ordered By: Christian Carlos on 02-10-2025 Lymphocytes/100 WBC (Bld) N/A [facility] Lymphocytes/100 leukocytes i n Blood by Manual countOrdered By: Christian Carlos on 02-10-2025 Lymphocytes/100 WBC (Bld) 69 % High 18-42 [facility] Comment on above: Performed By: #### C MP, DIFF CBC ####[facility] [id number] [address] MCH [Entitic mass] by Automa christophe countOrdered By: Christian Carlos on 02-10-2025 MCH (RBC) [Entitic mass] 34.2 pg Normal 27.5-35.2 [facility] Comment on above: Performed By: #### C MP, DIFF CBC ####[place] [id number] MCHC Auto (RBC) [Mass/Vol]Or dered By: Christian Carlos on 02-10-2025 MCHC (RBC) [Mass/Vol] 35.2 g/dL 32.5-35.6 [facility] MCV [Entitic volume] by Auto mated countOrdered By: Christian Carlos on 02-10-2025 MCV (RBC) [Entitic vol] 97.2 fL Normal 83.5-101 [facility] Comment on above: Performed By: #### C MP, DIFF CBC ####[place] [id number] Monocytes Auto (Bld) [#/Vol] Ordered By: Christian Carlos on 02-10-2025 Monocytes (Bld) [#/Vol] N/A [facility] Monocytes/100 WBC Auto (Bld) Ordered By: Christian Carlos on 02-10-2025 Monocytes/100 WBC (Bld) N/A [facility] Monocytes/100 leukocytes in Blood by Manual countOrdered By: Christian Carlos on 02-10-2025 Monocytes/100 WBC (Bld) 5 % Normal 2-11 [facility] Comment on above: Performed By: #### C MP, DIFF CBC ####[place] [id number] [place] [id number] [facility] Neutrophils Auto (Bld) [#/Vo l]Ordered By: Christian Carlos on 02-10-2025 Neutrophils (Bld) [#/Vol] N/A [facility] Neutrophils/100 WBC Auto (Bl d)Ordered By: Christian Carlos on 02-10-2025 Neutrophils/100 WBC (Bld) N/A [facility] No Panel InformationOrdered By: Christian Carlos on 02-10-2025 Miscellaneous Pathology Test See comment [facility] Comment on above: See report. Scanned copy available in EMR. Estimated GFR (CKD-EPI) > 60.0 mL/Min [facility] Creatinine Clearance (Chem 93.99 [facility] Protein Electrophoresis M-Danny Not observed g/dL Not Observed [facility] Protein Electrophoresis Note Comment . [facility] Comment on above: Protein electrophore sis scan will follow via computer,mail, or manager branch delivery. No Panel Informationon 02-10 [facility] Nucleated erythrocytes [Pres ence] in Blood by Automated countOrdered By: Christian Carlos on 02-10-2025 Nucleated RBC Auto Ql (Bld) N/A [facility] Ovalocytes [Presence] in Blo od by Light microscopyOrdered By: Christian Carlos on 02-10-2025 Ovalocytes LM Ql (Bld) Slight Fi relaFormerly [facility] Pathology Request for Lab Co rpon 02-10-2025 Pathology Request for Lab Reina Normal [facility] Comment on above: Result Comment: See report. Scanned copy available in EMR. PERFORMED BY: [facility] [address] [place] [address] PATHOLOGIST [employer] DANIELLE QUNIONES M.D. Performed By: #### P ATH TO [facility] #### [facility] [address] [place] [id number] [facility] Platelet adequacy [Presence] in Blood by Light microscopyOrdered By: Christian Carlos on 02-10-2025 Platelets LM Ql (Bld) Normal Normal [facility] Platelet mean volume [Entiti c volume] in Blood by Automated countOrdered By: Christian Carlos on 02-10-2025 Platelet mean volume (Bld) [Entitic vol] 7.4 fL Normal 6.6-10.1 [facility] Comment on above: Result Comment: PERF ORMED BY: [facility] [address] [place] [address] PATHOLOGIST [employer] DANIELLE QUINONES M.D. Performed By: #### C MP, DIFF CBC ####[facility] [id number] [place] [id number] [facility] Platelet morphology finding [Identifier] in BloodOrdered By: Christian Carlos on 02-10-2025 Platelet morphology finding Nom (Bld) Normal Normal [facility] Platelets [#/volume] in Bloo d by Automated countOrdered By: Christian Carlos on 02-10-2025 Platelets (Bld) [#/Vol] 158 10*3/uL Normal 150-450 [facility] Comment on above: Performed By: #### C MP, DIFF CBC ####[facility] [id number] [address] Poikilocytosis [Presence] in Blood by Light microscopyOrdered By: Christian Carlos on 02-10-2025 Poikilocytosis LM Ql (Bld) Slight [facility] Polychromasia [Presence] in Blood by Light microscopyOrdered By: Christian Carlos on 02-10-2025 Polychromasia LM Ql (Bld) Slight [facility] Potassium [Moles/volume] in Serum or Plasmaon 02-10-2025 Potassium [Moles/Vol] 3.8 mmol/L Normal 3.5-5.1 [facility] S [facility] Comment on above: Performed By: #### C MP, DIFF CBC ####[facility] [id number] [address] Protein Electrophoresis, Ser umon 02-10-2025 Fvolm-2-Hwofmpcg 0.3 g/dL Normal 0.0-0.4 [facility] Comment on above: Performed By: #### K APPA, JIGAR SERUM, SPE ####[facility] , Lguno-6-Pbdprxfj 0.5 g/dL Normal 0.4-1.0 [facility] Comment on above: Performed By: #### K APPA, JIGAR SERUM, SPE ####[facility] , Beta Globulin 0.9 g/dL Normal 0.7-1.3 [facility] Comment on above: Performed By: #### K APPA, JIGAR SERUM, SPE ####[facility] , Gamma Globulin 0.7 g/dL Normal 0.4-1.8 [facility] Comment on above: Performed By: #### K APPA, JIGAR SERUM, SPE ####[facility] , M-Danny Not Observed Normal Not Observed [facility] Comment on above: Performed By: #### K APPA, JIGAR SERUM, SPE ####[facility] , SPE-Note Comment Normal . [facility] Comment on above: Result Comment: Prot ein electrophoresis scan will follow via computer, mail, or manager branch delivery. Performed By: #### K APPA, JIGAR SERUM, SPE ####[facility] , Protein [Mass/volume] in Ser um or Plasmaon 02-10-2025 Protein [Mass/Vol] 6.7 g/dL Normal 6.4-8.9 [facility] Comment on above: Performed By: #### C MP, DIFF CBC ####[facility] [id number] [address] Prothrombin time (PT)Ordered By: Christian Carlos on 02-10-2025 PT Coag (PPP) [Time] 11.1 s Normal 9.0-12.9 [facility] Comment on above: A hematocrit value g reater than 55% may lead to inaccurate results in coagulation testing. Patients having hematocrit values >55% require a special collection tube for coagulation studies. Please contact the laboratory at [phone] for redraw instructions. Order Comment: STAT FOR CT Result Comment: A he matocrit value greater than 55% may lead to inaccurate results in coagulation testing. Patients having hematocrit values >55% require a special collection tube for coagulation studies. Please contact the laboratory at [phone] for redraw instructions. Performed By: #### P P #### [facility] [address] [place] [address] [place] Segmented neutrophils/100 le ukocytes in Blood by Manual countOrdered By: Christian Carlos on 02-10-2025 Segmented neutrophils/100 WBC (Bld) 25 % Low 50-70 [facility] Comment on above: Performed By: #### C MP, DIFF CBC ####[facility] [id number] [address] Serum free kappa light chain measurementOrdered By: Christian Carlos on 02-10-2025 Immunoglobulin light chains.kappa.free (S) [Mass/Vol] 16.3 mg/L 3.3-19.4 [facility] Serum globulin measurement ( mass/volume)Ordered By: Christian Carlos on 02-10-2025 Globulin (S) [Mass/Vol] 2.3 g/dL Normal 2.2-3.9 [facility] Comment on above: Performed By: #### K APPA, JIGAR SERUM, SPE ####[facility] , Serum globulin measurement b y calculation (mass/volume)Ordered By: Christian Carlos on 02-10-2025 Globulin (S) [Mass/Vol] 2.0 g/dL Normal [facility] Comment on above: Performed By: #### C MP, DIFF CBC ####[facility] [id number] [place] [id number] [facility] Serum immunoglobulin free ka ppa light chains/immunoglobulin free lambda light chainsOrdered By: Christian Carlos on 02-10-2025 Immunoglobulin light chains.kappa.free/Immu noglobulin light chains.lambda.free (S) [Mass ratio] 1.54 0.26-1.65 [facility] Comment on above: Performed at: [facility] [place] [id number] Director: Chad Mccall PhD, Phone: [phone] Serum or plasma IgA measurem ent (mass/volume)Ordered By: Christian Carlos on 02-10-2025 IgA [Mass/Vol] 146 mg/dL 61-437 [facility] Serum or plasma IgG measurem ent (mass/volume)Ordered By: Christian Carlos on 02-10-2025 IgG [Mass/Vol] 714 mg/dL 603-1613 [facility] Serum or plasma IgM measurem ent (mass/volume)Ordered By: Christian Carlos on 02-10-2025 IgM [Mass/Vol] 24 mg/dL 20-172 [facility] Comment on above: Result confirmed on concentration.Performed at: [employer] [facility] [place] [address] [id number] Director: Chad Mccall PhD, Phone: [phone] Serum or plasma albumin kirk urement (mass/volume)Ordered By: Christian Carlos on 02-10-2025 Albumin [Mass/Vol] 4.0 g/dL Normal 2.9-4.4 [facility] Comment on above: Performed By: #### K APPA, JIGAR SERUM, SPE ####[facility] , Serum or plasma albumin/glob ulin mass ratioon 02-10-2025 Albumin/Globulin [Mass ratio] 2.4 {ratio} Normal [facility] Comment on above: Performed By: #### C MP, DIFF CBC ####[facility] [id number] [address] Serum or plasma albumin/glob ulin mass ratioOrdered By: Christian Carlos on 02-10-2025 Albumin/Globulin [Mass ratio] 1.7 {ratio} Normal 0.7-1.7 [facility] Comment on above: Performed By: #### K APPA, JIGAR SERUM, SPE ####[facility] , Serum or plasma alpha 1 glob ulin measurement by electrophoresis (mass/volume)Ordered By: Christian Carlos on 02-10-2025 Alpha 1 globulin Elph [Mass/Vol] 0.3 g/dL 0.0-0.4 [facility] Serum or plasma alpha 2 glob ulin measurement by electrophoresis (mass/volume)Ordered By: Christain Carlos on 02-10-2025 Alpha 2 globulin Elph [Mass/Vol] 0.5 g/dL 0.4-1.0 [facility] Serum or plasma anion gap de terminationon 02-10-2025 Anion gap [Moles/Vol] 9.2 mmol/L Normal 6.0-15.0 [facility] Comment on above: Performed By: #### C MP, DIFF CBC ####[facility] [id number] [address] Serum or plasma beta globuli n measurement by electrophoresis (mass/volume)Ordered By: Christian Carlos on 02-10-2025 Beta globulin Elph [Mass/Vol] 0.9 g/dL 0.7-1.3 [facility] Serum or plasma gamma globul in measurement by electrophoresis (mass/volume)Ordered By: Christian Carlos on 02-10-2025 Gamma globulin Elph [Mass/Vol] 0.7 g/dL 0.4-1.8 [facility] Serum or plasma immunoglobul in free lambda light chains measurement (mass/volume)Ordered By: Christian Carlos on 02-10-2025 Immunoglobulin light chains.lambda.free [Mass/Vol] 10.6 mg/L 5.7-26.3 [facility] Serum total protein measurem entOrdered By: Christian Carlos on 02-10-2025 Protein [Mass/Vol] 6.3 g/dL Normal 6.0-8.5 [facility] Comment on above: Performed By: #### K APPA, JIGAR SERUM, SPE ####[facility] , Sodium [Moles/volume] in Ser um or Plasmaon 02-10-2025 Sodium [Moles/Vol] 140 mmol/L Normal 136-145 [facility] Comment on above: Performed By: #### C MP, DIFF CBC ####[facility] [id number] [place] [id number] [facility] Urea nitrogen [Mass/volume] in Serum or Plasmaon 02-10-2025 Urea nitrogen [Mass/Vol] 22 mg/dL Normal 7-25 [facility] Comment on above: Performed By: #### C MP, DIFF CBC ####[place] [id number] [place] [id number] [facility] aPTT in Platelet poor plasma by Coagulation assayOrdered By: Christian Carlos on 02-10-2025 aPTT Coag (PPP) [Time] 30.1 s 25.1-36.5 [facility] Comment on above: A hematocrit value g reater than 55% may lead to inaccurate results in coagulation testing. Patients having hematocrit values >55% require a special collection tube for coagulation studies. Please contact the laboratory at [phone] for redraw instructions. FLOWCYTOMETRY NEOGENOMICon 0 01-18-2025 FLOWCYTOMETRY NEOGENOMIC [facility] Comment on above: See report. Scanned copy available in EMR. [facility] Alanine aminotransferase [En zymatic activity/volume] in Serum or PlasmaOrdered By: Christian Carlos on 01-13-2025 ALT [Catalytic activity/Vol] 30 U/L Normal 7-52 [facility] Comment on above: Performed By: #### L DH, CMP, DIFF CBC ####[place] [id number] [place] [address] [place] Albumin [Mass/volume] in Ser um or Plasma by Bromocresol green (BCG) dye binding methoOrdered By: Christian Carlos on 01-13-2025 Albumin BCG dye [Mass/Vol] 4.4 g/dL 3.5-5.7 [facility] Alkaline phosphatase [Enzyma tic activity/volume] in Serum or PlasmaOrdered By: Christian Carlos on 01-13-2025 ALP [Catalytic activity/Vol] 86 U/L Normal 34-104 [facility] Comment on above: Performed By: #### L DH, CMP, DIFF CBC ####[place] [id number] [place] Aspartate aminotransferase [ Enzymatic activity/volume] in Serum or PlasmaOrdered By: Christian Carlos on 01-13-2025 AST [Catalytic activity/Vol] 33 U/L Normal 13-39 [facility] Comment on above: Performed By: #### L DH, CMP, DIFF CBC ####[address] [address] [place] Band form neutrophils/100 le ukocytes in Blood by Manual countOrdered By: Christian Carlos on 01-13-2025 Band form neutrophils/100 WBC (Bld) 2 % Normal 0-5 [facility] Comment on above: Performed By: #### L DH, CMP, DIFF CBC ####[place] [id number] [place] Basophils Auto (Bld) [#/Vol] Ordered By: Christian Carlos on 01-13-2025 Basophils (Bld) [#/Vol] N/A [facility] Basophils/100 WBC Auto (Bld) Ordered By: Christian Carlos on 01-13-2025 Basophils/100 WBC (Bld) N/A [facility] Bilirubin.total [Mass/volume ] in Serum or PlasmaOrdered By: Christian Carlos on 01-13-2025 Bilirubin [Mass/Vol] 1.7 mg/dL High 0.3-1.0 [facility] Comment on above: Samples from patient s who have taken Naproxen have shown spurious elevation in Total Bilirubin levels. A metabolite of Naproxen, O-desmethylnaproxen, has been shown to interfere with the Jendrassik-Grof method for measuring Total Bilirubin. Result Comment: Samp les from patients who have taken Naproxen have shown spurious elevation in Total Bilirubin levels. A metabolite of Naproxen, O-desmethylnaproxen, has been shown to interfere with the Jendrassik-Grof method for measuring Total Bilirubin. Performed By: #### L DH, CMP, DIFF CBC ####[facility] [place] [address] [place] Calcium [Mass/volume] in Ser um or PlasmaOrdered By: Christian Carlos on 01-13-2025 Calcium [Mass/Vol] 9.0 mg/dL Normal 8.6-10.3 [facility] Comment on above: Performed By: #### L DH, CMP, DIFF CBC ####[facility] [place] [address] [place] Carbon dioxide, total [Moles /volume] in Serum or PlasmaOrdered By: Christian Carlos on 01-13-2025 CO2 [Moles/Vol] 33.8 mmol/L High 21.0-31.0 [facility] Comment on above: Performed By: #### L DH, CMP, DIFF CBC ####[facility] [place] [address] [place] Chloride [Moles/volume] in S hesham or PlasmaOrdered By: Christian Carlos on 01-13-2025 Chloride [Moles/Vol] 104 mmol/L Normal 98-107 [facility] Comment on above: Performed By: #### L DH, CMP, DIFF CBC ####[facility] [place] [id number] [facility] Metabolic Pane [facility] 01-13-2025 Albumin [Mass/Vol] 4.4 g/dL Normal 3.5-5.7 [facility] Comment on above: Performed By: #### L DH, CMP, DIFF CBC ####[place] [address] Creatinine Clr Calc Pharmacy 85.09 Normal [facility] Comment on above: Performed By: #### L DH, CMP, DIFF CBC ####[place] [id number] GFR/1.73 sq M.predicted MDRD (S/P/Bld) [Vol rate/Area] mL/min/{1.73_m2} Normal [facility] Comment on above: Performed By: #### L DH, CMP, DIFF CBC ####[address] metabolic pane [facility] 01-13-2025 Albumin [Mass/Vol] 4.4 g/dL 3.5 - 5.7 g/dL [facility] Albumin/Globulin [Mass ratio] 2.6 {ratio} [facility] ALP [Catalytic activity/Vol] 86 U/L 34 - 104 U/L [facility] ALT [Catalytic activity/Vol] 30 U/L 7 - 52 U/L [facility] Anion gap [Moles/Vol] 7.3 mmol/L 6.0 - 15.0 meq/L [facility] AST [Catalytic activity/Vol] 33 U/L 13 - 39 U/L [facility] Bilirubin [Mass/Vol] 1.7 mg/dL High 0.3 - 1 .0 mg/dL [facility] Comment on above: Samples from patient s who have taken Naproxen have shown spurious elevation in Total Bilirubin levels. A metabolite of Naproxen, O-desmethylnaproxen, has been shown to interfere with the Sathish-Federica method for measuring Total Bilirubin. Calcium [Mass/Vol] 9 mg/dL 8.6 - 10. 3 mg/dL [facility] Chloride [Moles/Vol] 104 mmol/L 98 - 10 7 mmol/L [facility] CO2 [Moles/Vol] 33.8 mmol/L High 21.0 - 31.0 mmol/L [facility] Creatinine (U) [Mass/Vol] 0.95 mg/dL 0.70 - 1.30 mg/dL [facility] CREATININE CLR CALC PHARMACY 85.09 [facility] ESTIMATED GFR mL/Min [facility] Globulin (S) [Mass/Vol] 1.7 g/dL [facility] Glucose [Mass/Vol] 95 mg/dL 70 - 100 mg/dL [facility] Comment on above: Random Glucose Refer ence Range is dependent on time and content of last meal. Glucose of more than 200 mg/dL in a nonstressed, ambulatory subject supports the diagnosis of Diabetes Mellitus. ADA recommended reference range Potassium [Moles/Vol] 4.1 mmol/L 3.5 - 5.1 mmol/L [facility] Protein [Mass/Vol] 6.1 g/dL Low 6.4 - 8.9 g/dL [facility] Sodium [Moles/Vol] 141 mmol/L 136 - 145 mmol/L [facility] Urea nitrogen [Mass/Vol] 14 mg/dL 7 - 25 mg/dL [facility] Creatinine [Mass/volume] in Serum or PlasmaOrdered By: Christian Carlos on 01-13-2025 Creatinine [Mass/Vol] 0.95 mg/dL Normal 0.70-1.30 [facility] Comment on above: Performed By: #### L DH, CMP, DIFF CBC ####[facility] [id number] [place] [id number] [facility] Diff and CBCon 01-13-2025 Giant Platelet Tally 1 /100{WBC} Normal [facility] Comment on above: Performed By: #### L DH, CMP, DIFF CBC ####[facility] [id number] [place] [id number] [facility] Mean Corpuscular HGB Conc 35.6 g/dL Normal 32.5-35.6 [facility] Comment on above: Performed By: #### L DH, CMP, DIFF CBC ####[facility] [id number] [place] [id number] [facility] Platelet Estimate Decreased Normal Normal [facility] Comment on above: Performed By: #### L DH, CMP, DIFF CBC ####[place] [address] Platelet Morphology Normal Normal Normal [facility] Comment on above: Result Comment: PERF ORMED BY: [facility] [address] [place] [address] PATHOLOGIST [employer] SUSAN FREGOSO M.D. Performed By: #### L DH, CMP, DIFF CBC ####[address] Reactive Lymphocytes 2 % Normal 0-12 [facility] Comment on above: Performed By: #### L DH, CMP, DIFF CBC ####[address] Eosinophils Auto (Bld) [#/Vo l]Ordered By: Christian Carlos on 01-13-2025 Eosinophils (Bld) [#/Vol] N/A [facility] Eosinophils/100 WBC Auto (Bl d)Ordered By: Christian Carlos on 01-13-2025 Eosinophils/100 WBC (Bld) N/A [facility] Eosinophils/100 leukocytes i n Blood by Manual countOrdered By: Christian Carlos on 01-13-2025 Eosinophils/100 WBC (Bld) 4 % High 1-3 [facility] Comment on above: Performed By: #### L DH, CMP, DIFF CBC ####[address] Erythrocyte distribution wid th [Ratio] by Automated countOrdered By: Christian Carlos on 01-13-2025 Erythrocyte distribution width (RBC) [Ratio] 14.0 % Normal 12.0-14.8 [facility] Comment on above: Performed By: #### L DH, CMP, DIFF CBC ####[address] Erythrocyte morphology findi ng [Identifier] in BloodOrdered By: Christian Carlos on 01-13-2025 RBC morphology finding Nom (Bld) Normal Normal Normal [facility] Comment on above: Performed By: #### L DH, CMP, DIFF CBC ####[address] [place] [address] [place] Erythrocytes [#/volume] in B lood by Automated countOrdered By: Christian Carlos on 01-13-2025 RBC (Bld) [#/Vol] 4.15 10*6/uL Normal 3.90-5.60 [facility] Comment on above: Performed By: #### L DH, CMP, DIFF CBC ####[facility] Flowcytometry Neogen[employer]icon 0 01-13-2025 Flowcytometry Neogenomic Normal [facility] Comment on above: Result Comment: See report. Scanned copy available in EMR. PERFORMED BY: [facility] [address] [place] [address] PATHOLOGIST [employer] DANIELLE QUINONES M.D. Performed By: #### F LOW NEOGENOMIC #### [facility] [address] Giant platelets/100 leukocyt es [Ratio] in Blood by Manual countOrdered By: Christian Carlos on 01-13-2025 Giant platelets/100 WBC Manual cnt (Bld) [Ratio] 1 /100{WBC} [facility] Glucose [Mass/volume] in Ser um or PlasmaOrdered By: Christian Carlos on 01-13-2025 Glucose [Mass/Vol] 95 mg/dL Normal 70-100 [facility] Comment on above: ADA recommended refe rence rangeRandom Glucose Reference Range is dependent on time and content of last meal. Glucose of more than 200 mg/dL in a nonstressed, ambulatory subject supports the diagnosis of Diabetes Mellitus. Result Comment: [place] om Glucose Reference Range is dependent on time and content of last meal. Glucose of more than 200 mg/dL in a nonstressed, ambulatory subject supports the diagnosis of Diabetes Mellitus. ADA recommended reference range Performed By: #### L DH, CMP, DIFF CBC ####[facility] Hematocrit [Volume Fraction] of Blood by Automated countOrdered By: Christian Carlos on 01-13-2025 Hematocrit (Bld) [Volume fraction] 38.7 % Low 38.8-50.0 [facility] Comment on above: Performed By: #### L DH, CMP, DIFF CBC ####[facility] [id number] [place] [id number] [facility] Hemoglobin [Mass/volume] in BloodOrdered By: Christian Carlos on 01-13-2025 Hemoglobin (Bld) [Mass/Vol] 13.8 g/dL Normal 13.0-17.0 [facility] Comment on above: Performed By: #### L DH, CMP, DIFF CBC ####[facility]1111 [place] [id number] [facility] LDH Lactate Dehydrogenaseon 01-13-2025 LDH Lactate Dehydrogenase 310 U/L High 140-271 [facility] Comment on above: Result Comment: PERF ORMED BY: [facility] [address] [place] [address] PATHOLOGIST [employer] SUSAN FREGOSO M.D. Performed By: #### L DH, CMP, DIFF CBC ####[facility] [id number] [place] [id number] [facility] LDH Lactate to pyruvate reac tion [Catalytic activity/Vol]on 01-13-2025 LDH LACTATE DEHYDROGENASE 310 U/L High 140 - 271 U/L [facility] Lactate dehydrogenase [Enzym atic activity/volume] in Serum or Plasma by Lactate to pyOrdered By: Christian Carlos on 01-13-2025 LDH Lactate to pyruvate reaction [Catalytic activity/Vol] 310 U/L High 140-271 [facility] Leukocytes [#/volume] correc christophe for nucleated erythrocytes in Blood by Automated counOrdered By: Christian Carlos on 01-13-2025 WBC corrected for nucl RBC Auto (Bld) [#/Vol] 16.9 10*3/uL High 4.1-10.5 [facility] Leukocytes [#/volume] in Blo od by Automated countOrdered By: Christian Carlos on 01-13-2025 WBC (Bld) [#/Vol] 16.9 10*3/uL High 4.1-10.5 [facility] Comment on above: Performed By: #### L DH, CMP, DIFF CBC ####[address] Lymphocytes Auto (Bld) [#/Vo l]Ordered By: Christian Carlos on 01-13-2025 Lymphocytes (Bld) [#/Vol] N/A [facility] Lymphocytes/100 WBC Auto (Bl d)Ordered By: Christian Carlos on 01-13-2025 Lymphocytes/100 WBC (Bld) N/A [facility] Lymphocytes/100 leukocytes i n Blood by Manual countOrdered By: Christian Carlos on 01-13-2025 Lymphocytes/100 WBC (Bld) 48 % High 18-42 [facility] Comment on above: Performed By: #### L DH, CMP, DIFF CBC ####[address] MCH [Entitic mass] by Automa christophe countOrdered By: Christian Carlos on 01-13-2025 MCH (RBC) [Entitic mass] 33.1 pg Normal 27.5-35.2 [facility] Comment on above: Performed By: #### L LEONIE, CMP, DIFF CBC ####[address] MCHC Auto (RBC) [Mass/Vol]Or dered By: Christian Carlos on 01-13-2025 MCHC (RBC) [Mass/Vol] 35.6 g/dL 32.5-35.6 [facility] MCV [Entitic volume] by Auto mated countOrdered By: Christian Carlos on 01-13-2025 MCV (RBC) [Entitic vol] 93.1 fL Normal 83.5-101 [facility] Comment on above: Performed By: #### L DH, CMP, DIFF CBC ####[address] Monocytes Auto (Bld) [#/Vol] Ordered By: Christian Carlos on 01-13-2025 Monocytes (Bld) [#/Vol] N/A [facility] Monocytes/100 WBC Auto (Bld) Ordered By: Christian Carlos on 01-13-2025 Monocytes/100 WBC (Bld) N/A [facility] Monocytes/100 leukocytes in Blood by Manual countOrdered By: Christian Carlos on 01-13-2025 Monocytes/100 WBC (Bld) 6 % Normal 2-11 [facility] Comment on above: Performed By: #### L DH, CMP, DIFF CBC ####[facility] [id number] [place], [place] [address] Neutrophils Auto (Bld) [#/Vo l]Ordered By: Christian Carlos on 01-13-2025 Neutrophils (Bld) [#/Vol] N/A [facility] Neutrophils/100 WBC Auto (Bl d)Ordered By: Christian Carlos on 01-13-2025 Neutrophils/100 WBC (Bld) N/A [facility] No Panel Informationon 01-13 Interpretation and review of laboratory results Abnormal [facility] Healthcare [facility] No Panel InformationOrdered By: Christian Carlos on 01-13-2025 Estimated GFR (CKD-EPI) > 60.0 mL/Min [facility] Creatinine Clearance (Chem 85.09 [facility] Nucleated erythrocytes [Pres ence] in Blood by Automated countOrdered By: Christian Carlos on 01-13-2025 Nucleated RBC Auto Ql (Bld) N/A [facility] Platelet adequacy [Presence] in Blood by Light microscopyOrdered By: Christian Carlos on 01-13-2025 Platelets LM Ql (Bld) Decreased Normal [facility] Platelet mean volume [Entiti c volume] in Blood by Automated countOrdered By: Christian Carlos on 01-13-2025 Platelet mean volume (Bld) [Entitic vol] 7.3 fL Normal 6.6-10.1 [facility] Comment on above: Performed By: #### L DH, CMP, DIFF CBC ####[facility] [id number] [place] [address] [facility] Platelet morphology finding [Identifier] in BloodOrdered By: Christian Carlos on 01-13-2025 Platelet morphology finding Nom (Bld) Normal Normal [facility] Platelets [#/volume] in Bloo d by Automated countOrdered By: Christian Carlos on 01-13-2025 Platelets (Bld) [#/Vol] 136 10*3/uL Low 150-450 [facility] Comment on above: Performed By: #### L LEONIE, CMP, DIFF CBC ####[address] Potassium [Moles/volume] in Serum or PlasmaOrdered By: Christian Carlos on 01-13-2025 Potassium [Moles/Vol] 4.1 mmol/L Normal 3.5-5.1 [facility] Comment on above: Performed By: #### L LEONIE, CMP, DIFF CBC ####[address] Protein [Mass/volume] in Ser um or PlasmaOrdered By: Christian Carlos on 01-13-2025 Protein [Mass/Vol] 6.1 g/dL Low 6.4-8.9 [facility] Comment on above: Performed By: #### L LEONIE, CMP, DIFF CBC ####[address] Segmented neutrophils/100 le ukocytes in Blood by Manual countOrdered By: Christian Carlos on 01-13-2025 Segmented neutrophils/100 WBC (Bld) 39 % Low 50-70 [facility] Comment on above: Performed By: #### L LEONIE, CMP, DIFF CBC ####[address] Serum globulin measurement b y calculation (mass/volume)Ordered By: Christian Carlos on 01-13-2025 Globulin (S) [Mass/Vol] 1.7 g/dL [facility] Comment on above: Performed By: #### L LEONIE, CMP, DIFF CBC ####[address] Serum or plasma albumin/glob ulin mass ratioOrdered By: Christian Carlos on 01-13-2025 Albumin/Globulin [Mass ratio] 2.6 {ratio} [facility] Comment on above: Performed By: #### L DH, CMP, DIFF CBC ####[facility] Serum or plasma anion gap de terminationOrdered By: Christian Carlos on 01-13-2025 Anion gap [Moles/Vol] 7.3 mmol/L Normal 6.0-15.0 [facility] Comment on above: Performed By: #### L DH, CMP, DIFF CBC ####[place] [id number] [address] Sodium [Moles/volume] in Ser um or PlasmaOrdered By: Christian Carlos on 01-13-2025 Sodium [Moles/Vol] 141 mmol/L Normal 136-145 [facility] Comment on above: Performed By: #### L DH, CMP, DIFF CBC ####[place] [id number] [address] Urea nitrogen [Mass/volume] in Serum or PlasmaOrdered By: Christian Carlos on 01-13-2025 Urea nitrogen [Mass/Vol] 14 mg/dL Normal 7-25 [facility] Comment on above: Performed By: #### L DH, CMP, DIFF CBC ####[place] [id number] [place] [address] [place] Variant lymphocytes/100 WBC Manual cnt (Bld)Ordered By: Christian Carlos on 01-13-2025 Variant lymphocytes/100 WBC (Bld) 2 % 0-12 [facility] A1C with Estimated Average G luon 11-30-2024 Glucose [Mass/Vol] 94 mg/dL Normal [facility] Comment on above: Result Comment: PERF ORMED BY: [facility] [address] [place] [address] PATHOLOGIST [employer] SUSAN FREGOSO M.D. Performed By: #### L IPID, CHC CBC, EMP PSA, A1C WTH eA, CMP #### [facility] [address] [place] [address] [place] Alanine aminotransferase [En zymatic activity/volume] in Serum or PlasmaOrdered By: Russell Gómez on 11-30-2024 ALT [Catalytic activity/Vol] Alanine aminotransferase [Enzymatic activity/volume] in Serum or Plasma [facility] ALT [Catalytic activity/Vol] 28 U/L Normal [facility] Comment on above: Performed By: #### L IPID, CHC CBC, EMP PSA, A1C WTH eA, CMP #### [facility] [address] Albumin [Mass/volume] in Ser um or Plasma by Bromocresol green (BCG) dye binding methoOrdered By: Russell Gómez on 11-30-2024 Albumin BCG dye [Mass/Vol] Albumin [Mass/volume] in Serum or Plasma by Bromocresol green (BCG) dye binding metho 3.5-5.7 [facility] Albumin BCG dye [Mass/Vol] 4.3 g/dL 3.5-5.7 [facility] Alkaline phosphatase [Enzyma tic activity/volume] in Serum or PlasmaOrdered By: Russell Gómez on 11-30-2024 ALP [Catalytic activity/Vol] Alkaline phosphatase [Enzymatic activity/volume] in Serum or Plasma 34 [facility] ALP [Catalytic activity/Vol] 85 U/L Normal [facility] Comment on above: Result Comment: PERF ORMED BY: [place] [address] PATHOLOGIST [employer] SUSAN FREGOSO M.D. Performed By: #### L IPID, CHC CBC, EMP PSA, A1C [facility] eA, CMP #### [address] Aspartate aminotransferase [ Enzymatic activity/volume] in Serum or PlasmaOrdered By: Russell Gómez on 11-30-2024 AST [Catalytic activity/Vol] Aspartate aminotransferase [Enzymatic activity/volume] in Serum or Plasma [facility] AST [Catalytic activity/Vol] 29 U/L Normal [facility] Comment on above: Performed By: #### L IPID, CHC CBC, EMP PSA, A1C WT eA, CMP #### [address] Basophils Auto (Bld) [#/Vol] Ordered By: Russell Gómez on 11-30-2024 Basophils (Bld) [#/Vol] Automated basophil count 0.0-0.2 [facility] Basophils [#/volume] in Bloo d by Automated countOrdered By: Russell Gómez on 11-30-2024 Basophils (Bld) [#/Vol] 0.0 10*3/uL Normal 0.0-0.2 [facility] Comment on above: Result Comment: PERF ORMED BY: [place] [address] PATHOLOGIST [employer] SUSAN FREGOSO M.D. Performed By: #### L IPID, CHC CBC, EMP PSA, A1C WTH eA, CMP #### [address] Basophils/100 WBC Auto (Bld) Ordered By: Russell Gómez on 11-30-2024 Basophils/100 WBC (Bld) Automated basophil % . [facility] Basophils/100 leukocytes in Blood by Automated countOrdered By: Russell Gómez on 11-30-2024 Basophils/100 WBC (Bld) 0.2 % Normal . [facility] Comment on above: Performed By: #### L IPID, CHC CBC, EMP PSA, A1C WTH eA, CMP #### [address] Bilirubin.total [Mass/volume ] in Serum or PlasmaOrdered By: Russell Gómez on 11-30-2024 Bilirubin [Mass/Vol] Bilirubin.total [Mass/volume] in Serum or Plasma 0.3-1.0 [facility] Bilirubin [Mass/Vol] 1.0 mg/dL Normal 0.3-1.0 [facility] Comment on above: Performed By: #### L IPID, CHC CBC, EMP PSA, A1C WTH eA, CMP #### [address] Blood estimated average gluc ose determination by estimation from glycated hemoglobinOrdered By: Russell Gómez on 11-30-2024 Average glucose Estimated from glycated hemoglobin (Bld) [Mass/Vol] Glucose mean value [Mass/volume] in Blood Estimated from glycated hemoglobin [facility] Average glucose Estimated from glycated hemoglobin (Bld) [Mass/Vol] 94 mg/dL [facility] Calcium [Mass/volume] in Ser um or PlasmaOrdered By: Russell Gómez on 11-30-2024 Calcium [Mass/Vol] Calcium [Mass/volume ] in Serum or Plasma 8.6-10.3 [facility] Calcium [Mass/Vol] 9.5 mg/dL Normal 8.6-10.3 [facility] Comment on above: Performed By: #### L IPID, CHC CBC, EMP PSA, A1C WT eA, CMP #### [facility] [address] [place] [address] [place] Carbon dioxide, total [Moles /volume] in Serum or PlasmaOrdered By: Russell Gómez on 11-30-2024 CO2 [Moles/Vol] Carbon dioxide, tota l [Moles/volume] in Serum or Plasma High 21.0-31.0 [facility] CO2 [Moles/Vol] 34.1 mmol/L High 21.0-31.0 [facility] Comment on above: Performed By: #### L IPID, CHC CBC, EMP PSA, A1C WT eA, CMP #### [facility] [address] [place] [address] [place] Chloride [Moles/volume] in S hesham or PlasmaOrdered By: Russell Gómez on 11-30-2024 Chloride [Moles/Vol] Chloride [Moles/vol ume] in Serum or Plasma 98-107 [facility] Chloride [Moles/Vol] 104 mmol/L Normal 98-107 [facility] Comment on above: Performed By: #### L IPID, CHC CBC, EMP PSA, A1C WT eA, CMP #### [facility] [address] [place] [address] [place] Cholesterol [Mass/volume] in Serum or PlasmaOrdered By: Russell Gómez on 11-30-2024 Cholesterol [Mass/Vol] Cholesterol [Mass /volume] in Serum or Plasma 140-200 [facility] Comment on above: Chol less than 200 m g/dl low riskChol 201-239 mg/dl borderline riskChol 240 mg/dl and greater high risk Cholesterol [Mass/Vol] 169 mg/dL Normal 140-200 [facility] Comment on above: Chol less than 200 m g/dl low riskChol 201-239 mg/dl borderline riskChol 240 mg/dl and greater high risk Result Comment: Chol less than 200 mg/dl low risk Chol 201-239 mg/dl borderline risk Chol 240 mg/dl and greater high risk Performed By: #### L IPID, CHC CBC, EMP PSA, A1C WT eA, CMP #### [facility] [address] [place] [id number] [place] Cholesterol in HDL [Mass/vol ume] in Serum or PlasmaOrdered By: Russell Gómez on 11-30-2024 Cholesterol in HDL [Mass/Vol] Serum or plasma high density lipoprotein (HDL) cholesterol measurement [facility] Comment on above: HDL CHOL ATP-III CLA SSIFICATION Cardiovascular RiskHDL > or equal to 60 mg/dL LOWHDL < 40 mg/dL HIGH Cholesterol in HDL [Mass/Vol] 59 mg/dL Normal [facility] Comment on above: HDL CHOL ATP-III CLA SSIFICATION Cardiovascular RiskHDL > or equal to 60 mg/dL LOWHDL < 40 mg/dL HIGH Result Comment: HDL CHOL ATP-III CLASSIFICATION Cardiovascular Risk HDL > or equal to 60 mg/dL LOW HDL < 40 mg/dL HIGH Performed By: #### L IPID, CHC CBC, EMP PSA, A1C WT eA, CMP #### [facility] [address] [place] [id number] [place] Cholesterol in LDL Calc [Mas s/Vol]Ordered By: Russell Gómez on 11-30-2024 Cholesterol in LDL [Mass/Vol] Cholesterol in LDL [Mass/volume] in Serum or Plasma by calculation 0 [facility] Comment on above: LDL ATP III CLASSIFI CATIONLDL less than 100 mg/dL OptimalLDL 100-129 mg/dL Near or above optimalLDL 130-159 mg/dL Borderline highLDL 160-189 mg/dL HighLDL greater than 189 mg/dL Very high Cholesterol in LDL [Mass/Vol] 93 mg/dL 0-100 [facility] Comment on above: LDL ATP III CLASSIFI CATIONLDL less than 100 mg/dL OptimalLDL 100-129 mg/dL Near or above optimalLDL 130-159 mg/dL Borderline highLDL 160-189 mg/dL HighLDL greater than 189 mg/dL Very high Cholesterol in VLDL Calc [Ma ss/Vol]Ordered By: Russell Gómez on 11-30-2024 Cholesterol in VLDL [Mass/Vol] Cholesterol in VLDL [Mass/volume] in Serum or Plasma by calculation [facility] Cholesterol in VLDL [Mass/Vol] 17 mg/dL [facility] Complete Blood Count no refl exon 11-30-2024 Mean Corpuscular HGB Conc 34.3 g/dL Normal 32.5-35.6 [facility] Comment on above: Performed By: #### L IPID, CHC CBC, EMP PSA, A1C WTH eA, CMP #### [address] NRBC% 0.2 /100{WBC} Normal 0-0.5 [facility] Comment on above: Performed By: #### L IPID, CHC CBC, EMP PSA, A1C WTH eA, CMP #### [facility] [address] Comprehensive Metabolic Pane aline 11-30-2024 Albumin [Mass/Vol] 4.3 g/dL Normal 3.5-5.7 [facility] Comment on above: Performed By: #### L IPID, CHC CBC, EMP PSA, A1C WTH eA, CMP #### [facility] [address] [place] [address] [place] GFR/1.73 sq M.predicted MDRD (S/P/Bld) [Vol rate/Area] mL/min/{1.73_m2} Normal [facility] Comment on above: Performed By: #### L IPID, CHC CBC, EMP PSA, A1C WTH eA, CMP #### [facility] [address] [place] [address] [place] Creatinine [Mass/volume] in Serum or PlasmaOrdered By: Russell Gómez on 11-30-2024 Creatinine [Mass/Vol] Creatinine [Mass/v olume] in Serum or Plasma 0.70-1.30 [facility] Creatinine [Mass/Vol] 0.81 mg/dL Normal 0.70-1.30 [facility] Comment on above: Performed By: #### L IPID, [facility] CBC, EMP PSA, A1C WT eA, CMP #### [facility] [address] Employee PSA Totalon 025 PSA Total ([facility] Health Orders) 0.650 ng/mL Normal 0.000-4.00 0 [facility] Comment on above: Result Comment: [place] tumor marker results determined by assays using different manufacturers or methods may not be comparable. [facility] wait staff and method: [employer] DXI, CHEMILUMINESCENT IMMUNOASSAY. PERFORMED BY: [place] [address] PATHOLOGIST [employer] SUSAN FREGOSO M.D. Performed By: #### L IPID, [facility] CBC, EMP PSA, A1C [facility] eA, CMP #### [facility] [address] [place] [address] Eosinophils Auto (Bld) [#/Vo l]Ordered By: Russell Gómez on 11-30-2024 Eosinophils (Bld) [#/Vol] Automated eosinophil count 0.0-0.45 [facility] Eosinophils [#/volume] in Bl ood by Automated countOrdered By: Russell Gómez on 11-30-2024 Eosinophils (Bld) [#/Vol] 0.2 10*3/uL Normal 0.0-0.45 [facility] Comment on above: Performed By: #### L IPID, [facility] CBC, EMP PSA, A1C WT eA, CMP #### [facility] [address] [place] [address] [place] Eosinophils/100 WBC Auto (Bl d)Ordered By: Russell Gómez on 11-30-2024 Eosinophils/100 WBC (Bld) Automated eosinophil % . [facility] Eosinophils/100 leukocytes i n Blood by Automated countOrdered By: Russell Gómez on 11-30-2024 Eosinophils/100 WBC (Bld) 1.1 % Normal . [facility] Comment on above: Performed By: #### L IPID, CHC CBC, EMP PSA, A1C WTH eA, CMP #### [facility] [address] Erythrocyte distribution wid th Auto (RBC) [Ratio]Ordered By: Russell Gómez on 11-30-2024 Erythrocyte distribution width (RBC) [Ratio] Erythrocyte distribution width [Ratio] by Automated count 12.0-14.8 [facility] Erythrocyte distribution wid th [Ratio] by Automated countOrdered By: Russell Gómez on 11-30-2024 Erythrocyte distribution width (RBC) [Ratio] 13.2 % Normal 12.0-14.8 [facility] Comment on above: Performed By: #### L IPID, CHC CBC, EMP PSA, A1C WT eA, CMP #### [address] Erythrocytes [#/volume] in B lood by Automated countOrdered By: Russell Gómez on 11-30-2024 RBC (Bld) [#/Vol] 4.67 10*6/uL Normal 3.90-5.60 [facility] Comment on above: Performed By: #### L IPID, CHC CBC, EMP PSA, A1C WT eA, CMP #### [address] Globulin Calc (S) [Mass/Vol] Ordered By: Russell Gómez on 11-30-2024 Globulin (S) [Mass/Vol] Serum globulin measurement by calculation (mass/volume) [facility] Glucose [Mass/volume] in Ser um or PlasmaOrdered By: Russell Gómez on 11-30-2024 Glucose [Mass/Vol] Glucose [Mass/volume ] in Serum or Plasma 70-100 [facility] Comment on above: ADA recommended refe rence rangeRandom Glucose Reference Range is dependent on time and content of last meal. Glucose of more than 200 mg/dL in a nonstressed, ambulatory subject supports the diagnosis of Diabetes Mellitus. Glucose [Mass/Vol] 91 mg/dL Normal 70-100 [facility] Comment on above: ADA recommended refe rence rangeRandom Glucose Reference Range is dependent on time and content of last meal. Glucose of more than 200 mg/dL in a nonstressed, ambulatory subject supports the diagnosis of Diabetes Mellitus. Result Comment: [facility] Glucose Reference Range is dependent on time and content of last meal. Glucose of more than 200 mg/dL in a nonstressed, ambulatory subject supports the diagnosis of Diabetes Mellitus. ADA recommended reference range Performed By: #### L IPID, CHC CBC, EMP PSA, A1C WTH eA, CMP #### [facility] [address] Hematocrit Auto (Bld) [Volum e fraction]Ordered By: Russell Gómez on 11-30-2024 Hematocrit (Bld) [Volume fraction] Hematocrit [Volume Fraction] of Blood by Automated count 38.8-50.0 [facility] Hematocrit [Volume Fraction] of Blood by Automated countOrdered By: Russell Gómez on 11-30-2024 Hematocrit (Bld) [Volume fraction] 43.3 % Normal 38.8-50.0 [facility] Comment on above: Performed By: #### L IPID, CHC CBC, EMP PSA, A1C WTH eA, CMP #### [facility] [address] Hemoglobin A1c/Hemoglobin.to edouard in BloodOrdered By: Russell Gómez on 11-30-2024 HbA1c (Bld) [Mass fraction] Hemoglobin A1c percentage 4.3-5.6 [facility] Comment on above: Increased risk for d iabetes: 5.7 - 6.4diabetes: >6.4glycemic control for adults with diabetes: <7.0 HbA1c (Bld) [Mass fraction] 4.9 % Normal 4.3-5.6 [facility] Comment on above: Increased risk for d iabetes: 5.7 - 6.4diabetes: >6.4glycemic control for adults with diabetes: <7.0 Result Comment: Incr eased risk for diabetes: 5.7 - 6.4 diabetes: >6.4 glycemic control for adults with diabetes: <7.0 Performed By: #### L IPID, CHC CBC, EMP PSA, A1C WTH eA, CMP #### [facility] [address] [place] [id number] [place] Hemoglobin [Mass/volume] in BloodOrdered By: Russell Gómez on 11-30-2024 Hemoglobin (Bld) [Mass/Vol] Hemoglobin [Mass/volume] in Blood 13.0-17.0 [facility] Hemoglobin (Bld) [Mass/Vol] 14.9 g/dL Normal 13.0-17.0 [facility] Comment on above: Performed By: #### L IPID, CHC CBC, EMP PSA, A1C WTH eA, CMP #### [facility] [address] Leukocytes [#/volume] correc christophe for nucleated erythrocytes in Blood by Automated counOrdered By: Russell Gómez on 11-30-2024 WBC corrected for nucl RBC Auto (Bld) [#/Vol] Leukocytes [#/volume] corrected for nucleated erythrocytes in Blood by Automated coun High 4.1-10.5 [facility] WBC corrected for nucl RBC Auto (Bld) [#/Vol] 19.5 10*3/uL High 4.1-10.5 [facility] Leukocytes [#/volume] in Blo od by Automated countOrdered By: Russell Gómez on 11-30-2024 WBC (Bld) [#/Vol] 19.5 10*3/uL High 4.1-10.5 [facility] Comment on above: Performed By: #### L IPID, CHC CBC, EMP PSA, A1C WT eA, CMP #### [facility] [address] Lipid Panelon 11-30-2024 LDL Cholesterol,Calculated 93 mg/dL Normal 0-100 [facility] Comment on above: Result Comment: LDL ATP III CLASSIFICATION LDL less than 100 mg/dL Optimal LDL 100-129 mg/dL Near or above optimal LDL 130-159 mg/dL Borderline high LDL 160-189 mg/dL High LDL greater than 189 mg/dL Very high Performed By: #### L IPID, CHC CBC, EMP PSA, A1C WTH eA, CMP #### [facility] [address] [place] [id number] [facility] Triglyceride w/Reflex 86 mg/dL Normal 0-149 [facility] Comment on above: Result Comment: TRIG ATP III CLASSIFICATION TRIG less than 150 mg/dL Normal TRIG 150-199 mg/dL Borderline high TRIG 200-500 mg/dL High TRIG greater than 500 mg/dL Very high Standard traceable to the Center for Disease Conrtrol and Prevention (CDC) test method. Performed By: #### L IPID, CHC CBC, EMP PSA, A1C WTH eA, CMP #### [facility] [address] [place] [address] VLDL CHOLESTEROL 17 mg/dL Normal [facility] Comment on above: Performed By: #### L IPID, CHC CBC, EMP PSA, A1C WTH eA, CMP #### [facility] [address] [place] [address] Lymphocytes Auto (Bld) [#/Vo l]Ordered By: Russell Gómez on 11-30-2024 Lymphocytes (Bld) [#/Vol] Lymphocytes [#/volume] in Blood by Automated count High 1.00-4.8 [facility] Lymphocytes [#/volume] in Bl ood by Automated countOrdered By: Russell Gómez on 11-30-2024 Lymphocytes (Bld) [#/Vol] 14.4 10*3/uL High 1.00-4.8 [facility] Comment on above: Performed By: #### L IPID, CHC CBC, EMP PSA, A1C WT eA, CMP #### [place] [address] [place] Lymphocytes/100 WBC Auto (Bl d)Ordered By: Russell Gómez on 11-30-2024 Lymphocytes/100 WBC (Bld) Lymphocytes/100 leukocytes in Blood by Automated count . [facility] Lymphocytes/100 leukocytes i n Blood by Automated countOrdered By: Russell Gómez on 11-30-2024 Lymphocytes/100 WBC (Bld) 74.0 % Normal . [facility] Comment on above: Performed By: #### L IPID, CHC CBC, EMP PSA, A1C WTH eA, CMP #### [facility] [address] [place] [address] MCH Auto (RBC) [Entitic mass ]Ordered By: Russell Gómez on 11-30-2024 MCH (RBC) [Entitic mass] MCH [Entitic mass] by Automated count 27.5-35.2 [facility] MCH [Entitic mass] by Automa christophe countOrdered By: Russell Gómez on 11-30-2024 MCH (RBC) [Entitic mass] 31.8 pg Normal 27.5-35.2 [facility] Comment on above: Performed By: #### L IPID, CHC CBC, EMP PSA, A1C WT eA, CMP #### [facility] [address] MCHC Auto (RBC) [Mass/Vol]Or dered By: Russell Gómez on 11-30-2024 MCHC (RBC) [Mass/Vol] MCHC [Mass/volume] by Automated count 32.5-35.6 [facility] MCHC (RBC) [Mass/Vol] 34.3 g/dL 32.5-35.6 [facility] MCV Auto (RBC) [Entitic vol] Ordered By: Russell Gómez on 11-30-2024 MCV (RBC) [Entitic vol] MCV [Entitic volume] by Automated count 83.5-101 [facility] MCV [Entitic volume] by Auto mated countOrdered By: Russell Gómez on 11-30-2024 MCV (RBC) [Entitic vol] 92.8 fL Normal 83.5-101 [facility] Comment on above: Performed By: #### L IPID, CHC CBC, EMP PSA, A1C WT eA, CMP #### [facility] [address] Monocytes Auto (Bld) [#/Vol] Ordered By: Russell Gómez on 11-30-2024 Monocytes (Bld) [#/Vol] Automated blood monocyte count 0.0-0.8 [facility] Monocytes [#/volume] in Bloo d by Automated countOrdered By: Russell Gómez on 11-30-2024 Monocytes (Bld) [#/Vol] 0.4 10*3/uL Normal 0.0-0.8 [facility] Comment on above: Performed By: #### L IPID, CHC CBC, EMP PSA, A1C WTH eA, CMP #### [facility] [address] [place] [address] [place] Monocytes/100 WBC Auto (Bld) Ordered By: Russell Gómez on 11-30-2024 Monocytes/100 WBC (Bld) Automated monocyte % . [facility] Monocytes/100 leukocytes in Blood by Automated countOrdered By: Russell Gómez on 11-30-2024 Monocytes/100 WBC (Bld) 2.3 % Normal . [facility] Comment on above: Performed By: #### L IPID, CHC CBC, EMP PSA, A1C WTH eA, CMP #### [facility] [address] Neutrophils Auto (Bld) [#/Vo l]Ordered By: Russell Gómez on 11-30-2024 Neutrophils (Bld) [#/Vol] Neutrophils [#/volume] in Blood by Automated count 1.8-7.7 [facility] Neutrophils [#/volume] in Bl ood by Automated countOrdered By: Russell Gómez on 11-30-2024 Neutrophils (Bld) [#/Vol] 4.4 10*3/uL Normal 1.8-7.7 [facility] Comment on above: Performed By: #### L IPID, CHC CBC, EMP PSA, A1C WTH eA, CMP #### [facility] [address] Neutrophils/100 WBC Auto (Bl d)Ordered By: Russell Gómez on 11-30-2024 Neutrophils/100 WBC (Bld) Automated neutrophil % . [facility] Neutrophils/100 leukocytes i n Blood by Automated countOrdered By: Russell Gómez on 11-30-2024 Neutrophils/100 WBC (Bld) 22.4 % Normal . [facility] Comment on above: Performed By: #### L IPID, CHC CBC, EMP PSA, A1C WTH eA, CMP #### [facility] [address] No Panel InformationOrdered By: Russell Gómez on 11-30-2024 Estimated GFR (CKD-EPI) > 60.0 mL/Min [facility] Creatinine Clearance (Chem N/A [facility] Nucleated erythrocytes [Pres ence] in Blood by Automated countOrdered By: Russell Gómez on 11-30-2024 Nucleated RBC Auto Ql (Bld) Nucleated erythrocytes [Presence] in Blood by Automated count 0-0.5 [facility] Nucleated RBC Auto Ql (Bld) 0.2 /100{WBC} 0-0.5 [facility] Platelet mean volume Auto (B ld) [Entitic vol]Ordered By: Russell Gómez on 11-30-2024 Platelet mean volume (Bld) [Entitic vol] Platelet mean volume [Entitic volume] in Blood by Automated count 6.6-10.1 [facility] Platelet mean volume [Entiti c volume] in Blood by Automated countOrdered By: Russell Gómez on 11-30-2024 Platelet mean volume (Bld) [Entitic vol] 8.6 fL Normal 6.6-10.1 [facility] Comment on above: Performed By: #### L IPID, CHC CBC, EMP PSA, A1C [facility] eA, CMP #### [facility] [address] Platelets Auto (Bld) [#/Vol] Ordered By: Russell Gómez on 11-30-2024 Platelets (Bld) [#/Vol] Platelets [#/volume] in Blood by Automated count Low 150-450 [facility] Platelets [#/volume] in Bloo d by Automated countOrdered By: Russell Gómez on 11-30-2024 Platelets (Bld) [#/Vol] 121 10*3/uL Low 150-450 [facility] Comment on above: Performed By: #### L IPID, CHC CBC, EMP PSA, A1C WT eA, CMP #### [facility] [address] Potassium [Moles/volume] in Serum or PlasmaOrdered By: Russell Gómez on 11-30-2024 Potassium [Moles/Vol] Potassium [Moles/v olume] in Serum or Plasma 3.5-5.1 [facility] Potassium [Moles/Vol] 3.8 mmol/L Normal 3.5-5.1 [facility] Comment on above: Performed By: #### L IPID, CHC CBC, EMP PSA, A1C WT eA, CMP #### [facility] [address] Prostate specific Ag [Mass/v olume] in Serum or PlasmaOrdered By: Russell Gómez on 11-30-2024 Prostate specific Ag [Mass/Vol] Prostate specific Ag [Mass/volume] in Serum or Plasma 0.000-4.00 0 [facility] Comment on above: Serial tumor marker results determined by assays using different manufacturers or methods may not be comparable.[facility] wait staff and method:[employer] DXI, CHEMILUMINESCENT IMMUNOASSAY. Prostate specific Ag [Mass/Vol] 0.650 ng/mL 0.000-4.00 0 [facility] Comment on above: Serial tumor marker results determined by assays using different manufacturers or methods may not be comparable.[facility] wait staff and method:[employer] DXI, CHEMILUMINESCENT IMMUNOASSAY. Protein [Mass/volume] in Ser um or PlasmaOrdered By: Russell Gómez on 11-30-2024 Protein [Mass/Vol] Protein [Mass/volume ] in Serum or Plasma Low 6.4-8.9 [facility] Protein [Mass/Vol] 6.3 g/dL Low 6.4-8.9 [facility] Comment on above: Performed By: #### L IPID, CHC CBC, EMP PSA, A1C [facility], CMP #### [facility] [address] [place] [address] RBC Auto (Bld) [#/Vol]Ordere d By: Russell Gómez on 11-30-2024 RBC (Bld) [#/Vol] Erythrocytes [#/volu me] in Blood by Automated count 3.90-5.60 [facility] Serum globulin measurement b y calculation (mass/volume)Ordered By: Russell Gómez on 11-30-2024 Globulin (S) [Mass/Vol] 2.0 g/dL Normal [facility] Comment on above: Performed By: #### L IPID, CHC CBC, EMP PSA, A1C WTH eA, CMP #### [address] Serum or plasma albumin/glob ulin mass ratioOrdered By: Russell Gómez on 11-30-2024 Albumin/Globulin [Mass ratio] Serum or plasma albumin/globulin mass ratio [facility] Albumin/Globulin [Mass ratio] 2.2 {ratio} Normal [facility] Comment on above: Performed By: #### L IPID, CHC CBC, EMP PSA, A1C WTH eA, CMP #### [facility] [address] Serum or plasma anion gap de terminationOrdered By: Russell Gómez on 11-30-2024 Anion gap [Moles/Vol] Serum or plasma an ion gap determination 6.0-15.0 [facility] Anion gap [Moles/Vol] 7.7 mmol/L Normal 6.0-15.0 [facility] Comment on above: Performed By: #### L IPID, CHC CBC, EMP PSA, A1C WT eA, CMP #### [facility] [address] Serum or plasma total choles terol/high density lipoprotein (HDL) cholesterol mass ratOrdered By: Russell Gómez on 11-30-2024 Cholesterol.total/Chol esterol in HDL [Mass ratio] Serum or plasma total cholesterol/high density lipoprotein (HDL) cholesterol mass rat <5.0 [facility] Cholesterol.total/Chol esterol in HDL [Mass ratio] 2.9 {ratio} Normal <5.0 [facility] Comment on above: Result Comment: PERF ORMED BY: [place] [address] PATHOLOGIST [employer] SUSAN FREGOSO M.D. Performed By: #### L IPID, CHC CBC, EMP PSA, A1C WT eA, CMP #### [facility] [address] [place] [address] [place] Sodium [Moles/volume] in Ser um or PlasmaOrdered By: Russell Gómez on 11-30-2024 Sodium [Moles/Vol] Sodium [Moles/volume ] in Serum or Plasma 136-145 [facility] Sodium [Moles/Vol] 142 mmol/L Normal 136-145 [facility] Comment on above: Performed By: #### L IPID, CHC CBC, EMP PSA, A1C [facility] eA, CMP #### [facility] [address] Triglyceride [Mass/volume] i n Serum or PlasmaOrdered By: Russell Gómez on 11-30-2024 Triglyceride [Mass/Vol] Triglyceride [Mass/volume] in Serum or Plasma 0-149 [facility] Comment on above: TRIG ATP III CLASSIF ICATIONTRIG less than 150 mg/dL NormalTRIG 150-199 mg/dL Borderline highTRIG 200-500 mg/dL High TRIG greater than 500 mg/dL Very highStandard traceable to the Center for Disease Conrtrol and Prevention (CDC) test method. Triglyceride [Mass/Vol] 86 mg/dL 0-149 [facility] Comment on above: TRIG ATP III CLASSIF ICATIONTRIG less than 150 mg/dL NormalTRIG 150-199 mg/dL Borderline highTRIG 200-500 mg/dL High TRIG greater than 500 mg/dL Very highStandard traceable to the Center for Disease Conrtrol and Prevention (CDC) test method. Urea nitrogen [Mass/volume] in Serum or PlasmaOrdered By: Russell Gómez on 11-30-2024 Urea nitrogen [Mass/Vol] Urea nitrogen [Mass/volume] in Serum or Plasma 03-18 [facility] Urea nitrogen [Mass/Vol] 15 mg/dL Normal 03-18 [facility] Comment on above: Performed By: #### L IPID, CHC CBC, EMP PSA, A1C WT eA, CMP #### [facility] [address] WBC Auto (Bld) [#/Vol]Ordere d By: Russell Gómez on 11-30-2024 WBC (Bld) [#/Vol] Leukocytes [#/volume ] in Blood by Automated count High 4.1-10.5 [facility] Alanine aminotransferase [En zymatic activity/volume] in Serum or PlasmaOrdered By: Jose Solares on 11-12-2024 ALT [Catalytic activity/Vol] Alanine aminotransferase [Enzymatic activity/volume] in Serum or Plasma [facility] Albumin [Mass/volume] in Ser um or Plasma by Bromocresol green (BCG) dye binding methoOrdered By: Jose Solares on 11-12-2024 Albumin BCG dye [Mass/Vol] Albumin [Mass/volume] in Serum or Plasma by Bromocresol green (BCG) dye binding metho 3.5-5.7 [facility] Alkaline phosphatase [Enzyma tic activity/volume] in Serum or PlasmaOrdered By: Jose Solares on 11-12-2024 ALP [Catalytic activity/Vol] Alkaline phosphatase [Enzymatic activity/volume] in Serum or Plasma 34-104 [facility] Aspartate aminotransferase [ Enzymatic activity/volume] in Serum or PlasmaOrdered By: Jose Solares on 11-12-2024 AST [Catalytic activity/Vol] Aspartate aminotransferase [Enzymatic activity/volume] in Serum or Plasma 13-39 [facility] Basophils Auto (Bld) [#/Vol] Ordered By: Jose Solares on 11-12-2024 Basophils (Bld) [#/Vol] Automated basophil count 0.0-0.2 [facility] Basophils/100 WBC Auto (Bld) Ordered By: Jose Solares on 11-12-2024 Basophils/100 WBC (Bld) Automated basophil % . [facility] Bilirubin.total [Mass/volume ] in Serum or PlasmaOrdered By: Jose Solares on 11-12-2024 Bilirubin [Mass/Vol] Bilirubin.total [Mass/volume] in Serum or Plasma High 0.3-1.0 [facility] Calcium [Mass/volume] in Ser um or PlasmaOrdered By: Jose Solares on 11-12-2024 Calcium [Mass/Vol] Calcium [Mass/volume ] in Serum or Plasma 8.6-10.3 [facility] Carbon dioxide, total [Moles /volume] in Serum or PlasmaOrdered By: Jose Solares on 11-12-2024 CO2 [Moles/Vol] Carbon dioxide, tota l [Moles/volume] in Serum or Plasma High 21.0-31.0 [facility] Chloride [Moles/volume] in S hesham or PlasmaOrdered By: Jose Solares on 11-12-2024 Chloride [Moles/Vol] Chloride [Moles/vol ume] in Serum or Plasma 98-107 [facility] Comprehensive Metabolic Pane aline 11-12-2024 Albumin [Mass/Vol] 4.4 g/dL Normal 3.5-5.7 [facility] Comment on above: Performed By: #### S CAN CBC, LDH, CMP ####[address] Albumin/Globulin [Mass ratio] 2.3 {ratio} Normal [facility] Comment on above: Performed By: #### S CAN CBC, LDH, CMP ####[address] ALP [Catalytic activity/Vol] 89 U/L Normal 34-104 [facility] Comment on above: Performed By: #### S CAN CBC, LDH, CMP ####[address] ALT [Catalytic activity/Vol] 28 U/L Normal 7-52 [facility] Comment on above: Performed By: #### S CAN CBC, LDH, CMP ####[address] Anion gap [Moles/Vol] 8.2 mmol/L Normal 6.0-15.0 [facility] Comment on above: Performed By: #### S CAN CBC, LDH, CMP ####[address] AST [Catalytic activity/Vol] 27 U/L Normal 13-39 [facility] Comment on above: Performed By: #### S CAN CBC, LDH, CMP ####[address] Bilirubin [Mass/Vol] 1.1 mg/dL High 0.3-1.0 [facility] Comment on above: Performed By: #### S CAN CBC, LDH, CMP ####[address] Calcium [Mass/Vol] 8.8 mg/dL Normal 8.6-10.3 [facility] Comment on above: Performed By: #### S CAN CBC, LDH, CMP ####[address] Chloride [Moles/Vol] 106 mmol/L Normal 98-107 [facility] Comment on above: Performed By: #### S CAN CBC, LDH, CMP ####[address] CO2 [Moles/Vol] 31.9 mmol/L High 21.0-31.0 [facility] Comment on above: Performed By: #### S CAN CBC, LDH, CMP ####[address] Creatinine [Mass/Vol] 0.83 mg/dL Normal 0.70-1.30 [facility] Comment on above: Performed By: #### S CAN CBC, LDH, CMP ####[address] Creatinine Clr Calc Pharmacy 97.39 Normal [facility] Comment on above: Performed By: #### S CAN CBC, LDH, CMP ####[address] GFR/1.73 sq M.predicted MDRD (S/P/Bld) [Vol rate/Area] mL/min/{1.73_m2} Normal [facility] Comment on above: Performed By: #### S CAN CBC, LDH, CMP ####[address] Globulin (S) [Mass/Vol] 1.9 g/dL Normal [facility] Comment on above: Performed By: #### S CAN CBC, LDH, CMP ####[address] Glucose [Mass/Vol] 93 mg/dL Normal 70-100 [facility] Comment on above: Result Comment: [facility] Glucose Reference Range is dependent on time and content of last meal. Glucose of more than 200 mg/dL in a nonstressed, ambulatory subject supports the diagnosis of Diabetes Mellitus. ADA recommended reference range Performed By: #### S CAN CBC, LDH, CMP ####[address] Potassium [Moles/Vol] 4.1 mmol/L Normal 3.5-5.1 [facility] Comment on above: Performed By: #### S CAN CBC, LDH, CMP ####[facility] Protein [Mass/Vol] 6.3 g/dL Low 6.4-8.9 [facility] Comment on above: Performed By: #### S CAN CBC, LDH, CMP ####[place] [id number] [address] Sodium [Moles/Vol] 142 mmol/L Normal 136-145 [facility] Comment on above: Performed By: #### S CAN CBC, LDH, CMP ####[place] [id number] [address] Urea nitrogen [Mass/Vol] 17 mg/dL Normal 7-25 [facility] Comment on above: Performed By: #### S CAN CBC, LDH, CMP ####[place] [id number] [address] Creatinine [Mass/volume] in Serum or PlasmaOrdered By: Jose Solares on 11-12-2024 Creatinine [Mass/Vol] Creatinine [Mass/v olume] in Serum or Plasma 0.70-1.30 [facility] Eosinophils Auto (Bld) [#/Vo l]Ordered By: Jose Solares on 11-12-2024 Eosinophils (Bld) [#/Vol] Automated eosinophil count 0.0-0.45 [facility] Eosinophils/100 WBC Auto (Bl d)Ordered By: Jose Solares on 11-12-2024 Eosinophils/100 WBC (Bld) Automated eosinophil % . [facility] Erythrocyte distribution wid th Auto (RBC) [Ratio]Ordered By: Jose Solares on 11-12-2024 Erythrocyte distribution width (RBC) [Ratio] Erythrocyte distribution width [Ratio] by Automated count 12.0-14.8 [facility] Erythrocyte morphology findi ng [Identifier] in BloodOrdered By: Jose Solares on 11-12-2024 RBC morphology finding Nom (Bld) RBC morphology Normal [facility] Globulin Calc (S) [Mass/Vol] Ordered By: Jose Solares on 11-12-2024 Globulin (S) [Mass/Vol] Serum globulin measurement by calculation (mass/volume) [facility] Glucose [Mass/volume] in Ser um or PlasmaOrdered By: Jose Sujatha on 11-12-2024 Glucose [Mass/Vol] Glucose [Mass/volume ] in Serum or Plasma 70-100 [facility] Comment on above: ADA recommended refe rence rangeRandom Glucose Reference Range is dependent on time and content of last meal. Glucose of more than 200 mg/dL in a nonstressed, ambulatory subject supports the diagnosis of Diabetes Mellitus. Hematocrit Auto (Bld) [Volum e fraction]Ordered By: Jose Sujatha on 11-12-2024 Hematocrit (Bld) [Volume fraction] Hematocrit [Volume Fraction] of Blood by Automated count 38.8-50.0 [facility] Hemoglobin [Mass/volume] in BloodOrdered By: Jose Sujatha on 11-12-2024 Hemoglobin (Bld) [Mass/Vol] Hemoglobin [Mass/volume] in Blood 13.0-17.0 [facility] LDH Lactate Dehydrogenaseon 11-12-2024 LDH Lactate Dehydrogenase 242 U/L Normal 140-271 [facility] Comment on above: Result Comment: PERF ORMED BY: [facility] [address] [place] [address] PATHOLOGIST [employer] SUSAN FREGOSO M.D. Performed By: #### S CAN CBC, LDH, CMP ####[facility] [id number] [place] [address] [facility] Lactate dehydrogenase [Enzym atic activity/volume] in Serum or Plasma by Lactate to pyOrdered By: Jose Solares on 11-12-2024 LDH Lactate to pyruvate reaction [Catalytic activity/Vol] Lactate dehydrogenase [Enzymatic activity/volume] in Serum or Plasma by Lactate to py 140-271 [facility] Leukocytes [#/volume] correc christophe for nucleated erythrocytes in Blood by Automated counOrdered By: Jose Solares on 11-12-2024 WBC corrected for nucl RBC Auto (Bld) [#/Vol] Leukocytes [#/volume] corrected for nucleated erythrocytes in Blood by Automated coun High 4.1-10.5 [facility] Lymphocytes Auto (Bld) [#/Vo l]Ordered By: Jose Solares on 11-12-2024 Lymphocytes (Bld) [#/Vol] Lymphocytes [#/volume] in Blood by Automated count High 1.00-4.8 [facility] Lymphocytes/100 WBC Auto (Bl d)Ordered By: Jose Solares on 11-12-2024 Lymphocytes/100 WBC (Bld) Lymphocytes/100 leukocytes in Blood by Automated count . [facility] MCH Auto (RBC) [Entitic mass ]Ordered By: Jose Solares on 11-12-2024 MCH (RBC) [Entitic mass] MCH [Entitic mass] by Automated count 27.5-35.2 [facility] MCHC Auto (RBC) [Mass/Vol]Or dered By: Jose Solares on 11-12-2024 MCHC (RBC) [Mass/Vol] MCHC [Mass/volume] by Automated count 32.5-35.6 [facility] MCV Auto (RBC) [Entitic vol] Ordered By: Jose Solares on 11-12-2024 MCV (RBC) [Entitic vol] MCV [Entitic volume] by Automated count 83.5-101 [facility] Monocytes Auto (Bld) [#/Vol] Ordered By: Jose Solares on 11-12-2024 Monocytes (Bld) [#/Vol] Automated blood monocyte count 0.0-0.8 [facility] Monocytes/100 WBC Auto (Bld) Ordered By: Jose Solares on 11-12-2024 Monocytes/100 WBC (Bld) Automated monocyte % . [facility] Neutrophils Auto (Bld) [#/Vo l]Ordered By: Jose Solares on 11-12-2024 Neutrophils (Bld) [#/Vol] Neutrophils [#/volume] in Blood by Automated count 1.8-7.7 [facility] Neutrophils/100 WBC Auto (Bl d)Ordered By: Jose Solares on 11-12-2024 Neutrophils/100 WBC (Bld) Automated neutrophil % . [facility] No Panel InformationOrdered By: Jose Solares on 11-12-2024 Estimated GFR (CKD-EPI) > 60.0 mL/Min [facility] Creatinine Clearance (Chem 97.39 [facility] Nucleated erythrocytes [Pres ence] in Blood by Automated countOrdered By: Jose Solares on 11-12-2024 Nucleated RBC Auto Ql (Bld) Nucleated erythrocytes [Presence] in Blood by Automated count 0-0.5 [facility] Platelet adequacy [Presence] in Blood by Light microscopyOrdered By: Jose Solares on 11-12-2024 Platelets LM Ql (Bld) Platelet adequacy [Presence] in Blood by Light microscopy Normal [facility] Platelet mean volume Auto (B ld) [Entitic vol]Ordered By: Jose Solares on 11-12-2024 Platelet mean volume (Bld) [Entitic vol] Platelet mean volume [Entitic volume] in Blood by Automated count 6.6-10.1 [facility] Platelet morphology finding [Identifier] in BloodOrdered By: Jose Solares on 11-12-2024 Platelet morphology finding Nom (Bld) Platelet morphology finding [Identifier] in Blood Normal [facility] Platelets Auto (Bld) [#/Vol] Ordered By: Jose Solares on 11-12-2024 Platelets (Bld) [#/Vol] Platelets [#/volume] in Blood by Automated count Low 150-450 [facility] Potassium [Moles/volume] in Serum or PlasmaOrdered By: Jose Solares on 11-12-2024 Potassium [Moles/Vol] Potassium [Moles/v olume] in Serum or Plasma 3.5-5.1 [facility] Protein [Mass/volume] in Ser um or PlasmaOrdered By: Jose Solares on 11-12-2024 Protein [Mass/Vol] Protein [Mass/volume ] in Serum or Plasma Low 6.4-8.9 [facility] RBC Auto (Bld) [#/Vol]Ordere d By: Jose Solares on 11-12-2024 RBC (Bld) [#/Vol] Erythrocytes [#/volu me] in Blood by Automated count 3.90-5.60 [facility] Scan and CBCon 11-12-2024 Basophils (Bld) [#/Vol] 0.1 10*3/uL Normal 0.0-0.2 [facility] Comment on above: Performed By: #### S CAN CBC, LDH, CMP ####[address] Basophils/100 WBC (Bld) 0.4 % Normal . [facility] Comment on above: Performed By: #### S CAN CBC, LDH, CMP ####[address] Eosinophils (Bld) [#/Vol] 0.2 10*3/uL Normal 0.0-0.45 [facility] Comment on above: Performed By: #### S CAN CBC, LDH, CMP ####[address] Eosinophils/100 WBC (Bld) 1.0 % Normal . [facility] Comment on above: Performed By: #### S CAN CBC, LDH, CMP ####[address] Erythrocyte distribution width (RBC) [Ratio] 12.9 % Normal 12.0-14.8 [facility] Comment on above: Performed By: #### S CAN CBC, LDH, CMP ####[address] Hematocrit (Bld) [Volume fraction] 41.8 % Normal 38.8-50.0 [facility] Comment on above: Performed By: #### S CAN CBC, LDH, CMP ####[address] Hemoglobin (Bld) [Mass/Vol] 14.7 g/dL Normal 13.0-17.0 [facility] Comment on above: Performed By: #### S CAN CBC, LDH, CMP ####[address] Lymphocytes (Bld) [#/Vol] 13.2 10*3/uL High 1.00-4.8 [facility] Comment on above: Performed By: #### S CAN CBC, LDH, CMP ####[address] Lymphocytes/100 WBC (Bld) 75.9 % Normal . [facility] Comment on above: Performed By: #### S CAN CBC, LDH, CMP ####[address] MCH (RBC) [Entitic mass] 32.2 pg Normal 27.5-35.2 [facility] Comment on above: Performed By: #### S CAN CBC, LDH, CMP ####[address] MCV (RBC) [Entitic vol] 91.7 fL Normal 83.5-101 [facility] Comment on above: Performed By: #### S CAN CBC, LDH, CMP ####[address] Mean Corpuscular HGB Conc 35.1 g/dL Normal 32.5-35.6 [facility] Comment on above: Performed By: #### S CAN CBC, LDH, CMP ####[address] Monocytes (Bld) [#/Vol] 0.4 10*3/uL Normal 0.0-0.8 [facility] Comment on above: Performed By: #### S CAN CBC, LDH, CMP ####[address] Monocytes/100 WBC (Bld) 2.1 % Normal . [facility] Comment on above: Performed By: #### S CAN CBC, LDH, CMP ####[address] Neutrophils (Bld) [#/Vol] 3.6 10*3/uL Normal 1.8-7.7 [facility] Comment on above: Performed By: #### S CAN CBC, LDH, CMP ####[address] Neutrophils/100 WBC (Bld) 20.6 % Normal . [facility] Comment on above: Performed By: #### S CAN CBC, LDH, CMP ####[address] NRBC% 0.2 /100{WBC} Normal 0-0.5 [facility] Comment on above: Performed By: #### S CAN CBC, LDH, CMP ####[address] Platelet Estimate Decreased Normal Normal [facility] Comment on above: Performed By: #### S CAN CBC, LDH, CMP ####[address] Platelet mean volume (Bld) [Entitic vol] 7.9 fL Normal 6.6-10.1 [facility] Comment on above: Performed By: #### S CAN CBC, LDH, CMP ####[address] Platelet Morphology Normal Normal Normal [facility] Comment on above: Result Comment: PERF ORMED BY: [place] [address] PATHOLOGIST [employer] SUSAN FREGOSO M.D. Performed By: #### S CAN CBC, LDH, CMP ####[address] Platelets (Bld) [#/Vol] 136 10*3/uL Low 150-450 [facility] Comment on above: Performed By: #### S CAN CBC, LDH, CMP ####[address] RBC (Bld) [#/Vol] 4.56 10*6/uL Normal 3.90-5.60 [facility] Comment on above: Performed By: #### S CAN CBC, LDH, CMP ####[address] RBC morphology finding Nom (Bld) Normal Normal Normal [facility] Comment on above: Performed By: #### S CAN CBC, LDH, CMP ####[address] WBC (Bld) [#/Vol] 17.4 10*3/uL High 4.1-10.5 [facility] Comment on above: Performed By: #### S CAN CBC, LDH, CMP ####[facility] [id number] [place] [address] [facility] Serum or plasma albumin/glob ulin mass ratioOrdered By: Jose Solares on 11-12-2024 Albumin/Globulin [Mass ratio] Serum or plasma albumin/globulin mass ratio [facility] Serum or plasma anion gap de terminationOrdered By: Jose Solares on 11-12-2024 Anion gap [Moles/Vol] Serum or plasma an ion gap determination 6.0-15.0 [facility] Sodium [Moles/volume] in Ser um or PlasmaOrdered By: Jose Solares on 11-12-2024 Sodium [Moles/Vol] Sodium [Moles/volume ] in Serum or Plasma 136-145 [facility] Urea nitrogen [Mass/volume] in Serum or PlasmaOrdered By: Jose Solares on 11-12-2024 Urea nitrogen [Mass/Vol] Urea nitrogen [Mass/volume] in Serum or Plasma 7-25 [facility] WBC Auto (Bld) [#/Vol]Ordere d By: Jose Solares on 11-12-2024 WBC (Bld) [#/Vol] Leukocytes [#/volume ] in Blood by Automated count High 4.1-10.5 [facility] XR Hand - left 3 [facility] Result: Three views of the left hand(s), PA/lateral/oblique, taken today and saved to the permanent medical record. Fracture distal phalanx middle finger well healed with advanced DIP joint arthritis. [facility] Knee - right 3 [facility] Result: Three views, bilateral PA weight-bearing, sunrise, lateral of the right knee(s) taken today and saved to the permanent medical record are reviewed. Mild medial compartment joint space narrowing. No acute osseous abnormalities. [facility] No Panel Informationon 09-30 Aracely De León, ARR T 10/02/2024 9:51 PM L Inj/Asp: R knee on 09/30/2024 4:29 PM Indications: pain Details: 25 G needle, lateral approach Medications: 1.5 mg betamethasone acetate-betamethasone sodium phosphate 6 (3-3) MG/ML Consent was given by the patient. [facility] XR Hand - left 3 [facility] Study observation (narrative) [facility] XR Knee - right 3 [facility] Study observation (narrative) [facility] CNOVon 09-21-2024 CNOV Office Visit (CARDAV ) -- DARIUS VALERA ([id number]) 1960 M Date Time Provider Department 09/21/24 4:30 PM TONY ARMSTRONG During your visit today, we recorded the following information about you: Blood pressure Weight Height 142/82 93 kg 1.829 m Tony Armstrong PA-C 09/21/2024 5:03 PM Signed [facility] [place] Sissy Zepeda Department of Cardiovascular Medicine SECTION OF CLINICAL CARDIOLOGY OUTPATIENT VISIT DATE September 21, 2024 OUTPATIENT VISIT TYPE ESTABLISHED PRIMARY CARE PHYSICIAN: To use this Smartlink, specify the provider ID whose address you want to display, e.g., .PROVADDR[1 (where 1 is the provider ID). CHIEF COMPLAINT: Follow Up HISTORY OF PRESENT ILLNESS: Mr. Valera is a 63 year old male, patient of Dr. Macias who presents today for a cardiovascular medicine follow-up visit. 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 Pt is doing well. Exercises almost daily without difficulty. No CP/SOB/palps/dizziness. Adheres to medications. No LE edema, PND, orthopnea PMH: DMITRY No past medical history on file. No past surgical history on file. SOCIAL HISTORY Social History Tobacco Use Smoking status: Never Smokeless tobacco: Never Substance Use Topics Alcohol use: Not Currently Drug use: Never No family history on file. ALLERGIES No Known Allergies MEDICATIONS: doxazosin (CARDURA) 4 mg tablet TAKE 1 TABLET BY MOUTH EVERYDAY AT BEDTIME meloxicam (MOBIC) 15 mg tablet TAKE 1 TABLET (15 MG) BY MOUTH DAILY NEEDED FOR MILD PAIN Valsartan-hydroCHLOROthiaz ashleigh 320-25 mg per tablet Take 1 tablet by mouth once daily. NIFEdipine XL (ADALAT CC) 30 mg 24 hr tablet take one tablet by mouth daily nebivolol (BYSTOLIC) 5 mg tablet Take 1 tablet by mouth once daily. aspirin, enteric coated (ASPIRIN, ENTERIC COATED) 81 mg EC tablet Take 81 mg by mouth. sildenafil citrate (VIAGRA ORAL) Take by mouth as needed. REVIEW OF SYSTEMS: ROS is otherwise negative apart from what has been documented in HPI PHYSICAL EXAMINATION: There were no vitals taken for this visit. General: Well appearing, in no acute distress Neck: No jugular venous distention, no carotid bruits Lungs: CTAB Heart: Regular rhythm, S1, S2 present Abdomen: Soft, NT/ND, BS + Extremities: No LE edema, pulses equal CARDIOVASCULAR MEDICINE TESTING: Labs: ECG : ECHO 08/16: CONCLUSIONS: - Exam indication: Abnormal ECG - The left ventricle is normal in size. Left ventricular systolic function is normal. EF = 53 ? 5% (2D biplane) - The right ventricle is normal in size. Right ventricular systolic function is normal. - The left atrial cavity is mildly dilated. - There are no significant valvular abnormalities. - The visualized aorta is borderline dilated with a maximal dimension of 3.9 cm. - Exam was compared with the prior echocardiographic exam performed on 03/22/2022. There is no significant change. Device Check 10/18: Patient Name: Darius Valera : 1960 Ordering Provider: Hiren Sena Indication: I48.19 Other persistent atrial fibrillation Type of Monitor: Extended Monitoring-Zio Patch Enrollment Dates: 09/12/2023-09/25/2023 IRHYTHM FINDINGS: Patient had a min HR of 44 bpm, max HR of 185 bpm, and avg HR of 68 bpm. Predominant underlying rhythm was Sinus Rhythm. First Degree AV Block was present. 3 Ventricular Tachycardia runs occurred, the run with the fastest interval lasting 4 beats with a max rate of 185 bpm, the longest lasting 17.3 secs with an avg rate of 129 bpm. 4 Supraventricular Tachycardia runs occurred, the run with the fastest interval lasting 7 beats with a max rate of 146 bpm, the longest lasting 8 beats with an avg rate of 136 bpm. Isolated SVEs were rare (<1.0%), SVE Couplets were rare (<1.0%), and SVE Triplets were rare (<1.0%). Isolated VEs were occasional (1.4%, [id number]), VE Couplets were rare (<1.0%, 56), and VE Triplets were rare (<1.0%, 1). Ventricular Bigeminy and Trigeminy were present. No symptoms reported. IMPRESSION/PLAN: HTN - 142/82 in office - cont valsartan/HCTZ 320/25mg, Nifedipine 30 PAF - s/p RFA '22 - c/b tachycardiac induced CM, recovered with LVEF 53% - not on a/c CAC - noted on CT chest ' - Neg stress '20 - cont ASA RTC with Dr. Tuttle in 6 months CONTACT INFORMATION: Tony Armstrong PA-C Cardiology [id number] [facility] [id number] Dept: [phone] Dept Tony Armstrong PA-C 09/21/2024 4:57 PM Signed Please schedule appt with Dr. Tuttle in 6 months Referring Provider: ITA TUTTLE [[id number]] Allergies As of Date: 09/21/2024 (No Known Allergies) Date Reviewed: 09/21/2024 Reviewed by: Donte Iraheta II, RN - Fully Assessed Reason for Visit: Follow Up [171] Primary V (more content not included)... Normal [facility] MR HAND LEFT WO IV CONTRASTo n 07-30-2024 MR HAND LEFT WO IV CONTRAST EXAM/TECHNIQUEMR HAND LEFT WO IV CONTRAST, focused to the fourth digit. HISTORY: Left hand injury. Difficulty bending the fourth finger. Concern for flexor tendon injury. COMPARISON: Radiographs 07/24/2024. RESULT: Some limitations from motion. The apparent fracture along the dorsal aspect of the third digit DIP joint is better appreciated on the recent radiographs, and partially obscured by motion on this study. Small amount of bone marrow edema involving the third digit middle phalanx at the base, likely reactive. Visualized flexor and extensor tendons appear intact, without significant tendon retraction within limits of motion. Small amount of subchondral edema at the second MCP joint, probably degenerative in etiology or reactive. Mild areas of subcutaneous edema. Visualized musculature grossly unremarkable. IMPRESSION: Limitations from motion. Visualized flexor and extensor tendons appear grossly intact. ELECTRONICALLY SIGNED BY: Titi Hope MD Normal Not Available Comment on above: Order Comment: No to all MRI Questions CBC W Auto Differential pane l (Bld)on 07-29-2024 Basophils (Bld) [#/Vol] 0.1 10*3/uL [facility] Basophils/100 WBC (Bld) 0 % Not Estab. [facility] Eosinophils (Bld) [#/Vol] 0.2 10*3/uL [facility] Eosinophils/100 WBC (Bld) 1 % Not Estab. [facility] Erythrocyte distribution width (RBC) [Ratio] 12.7 % 11.6 - 15.4 % [facility] Hematocrit (Bld) [Volume fraction] 44.5 % 37.5 - 51.0 % [facility] Hemoglobin (Bld) [Mass/Vol] 15.1 g/dL 13.0 - 17.7 g/dL [facility] Immature granulocytes (Bld) [#/Vol] 0 10*3/uL [facility] Immature granulocytes/100 WBC (Bld) 0 % Not Estab. [facility] Lymphocytes (Bld) [#/Vol] 12.7 10*3/uL High [facility] Lymphocytes/100 WBC (Bld) 70 % Not Estab. [facility] MCH (RBC) [Entitic mass] 31.1 pg 26.6 - 33.0 pg [facility] MCHC (RBC) [Mass/Vol] 33.9 g/dL 31.5 - 35.7 g/dL [facility] MCV (RBC) [Entitic vol] 92 fL 79 - 97 fL [facility] Monocytes (Bld) [#/Vol] 0.6 10*3/uL [facility] Monocytes/100 WBC (Bld) 4 % Not Estab. [facility] Neutrophils (Bld) [#/Vol] 4.6 10*3/uL [facility] Neutrophils/100 WBC (Bld) 25 % Not Estab. [facility] Platelets (Bld) [#/Vol] 119 10*3/uL Low [facility] RBC (Bld) [#/Vol] 4.85 10*6/uL [facility] WBC (Bld) [#/Vol] 18.2 10*3/uL High [facility] Comprehensive metabolic pane aline 07-29-2024 Albumin [Mass/Vol] 4.5 g/dL 3.9 - 4.9 g/dL [facility] ALP [Catalytic activity/Vol] 102 U/L [facility] ALT [Catalytic activity/Vol] 33 U/L [facility] AST [Catalytic activity/Vol] 33 U/L [facility] Bilirubin [Mass/Vol] 0.6 mg/dL 0.0 - 1 .2 mg/dL [facility] Calcium [Mass/Vol] 9.3 mg/dL 8.6 - 10. 2 mg/dL [facility] Chloride [Moles/Vol] 101 mmol/L 96 - 10 6 mmol/L [facility] CO2 [Moles/Vol] 27 mmol/L 20 - 29 mmol/L [facility] Creatinine [Mass/Vol] 0.96 mg/dL 0.76 - 1.27 mg/dL [facility] GFR/1.73 sq M.predicted among non-blacks MDRD (S/P/Bld) [Vol rate/Area] 88 mL/min/{1.73_m2} 59 - PINF mL/min/1.7 3 [facility] Globulin (S) [Mass/Vol] 1.9 g/dL 1.5 - 4.5 g/dL [facility] Glucose [Mass/Vol] 100 mg/dL High 70 - 99 mg/dL [facility] Potassium [Moles/Vol] 4 mmol/L 3.5 - 5.2 mmol/L [facility] Protein [Mass/Vol] 6.4 g/dL 6.0 - 8.5 g/dL [facility] Sodium [Moles/Vol] 139 mmol/L 134 - 144 mmol/L [facility] Urea nitrogen [Mass/Vol] 20 mg/dL 8 - 27 mg/dL [facility] Urea nitrogen/Creatinine [Mass ratio] 21 mg/mg 10 - 24 [facility] Lactate dehydrogenaseon LDH Lactate to pyruvate reaction [Catalytic activity/Vol] 261 High [facility] No Panel Informationon 07-29 Interpretation and review of laboratory results Abnormal [facility] Performed at: 01 - L [address] [id number] Wiping Rag Washer: Chad Mccall PhD, Phone: [phone] [facility] Specimen Status Reporton Clindamycin Disk diffusion (KB) [[facility]] Comment [facility] Comment on above: Orlando Lock CMP14 D efault Orlando Lock CMP14 Default A hand-written panel/profile was received from your office. In accordance with the [facility] Ambiguous Test Code Policy dated February 2003, we have completed your order by using the closest currently or formerly recognized AMA panel. We have assigned Comprehensive Metabolic Panel (14), Test Code #348805 to this request. If this is not the testing you wished to receive on this specimen, please contact the [facility] Client Inquiry/Technical Services Department to clarify the test order. We appreciate your business. XR ORBITS 1 TO 3 VIEWSon XR ORBITS 1 TO 3 VIEWS XR ORBITS 1 TO 3 VIEWS/MRI CLEARANCE Reason for exam: MRI screening Prior comparative studies: None Findings: Screening Orbits: No radiopaque foreign bodies are seen to overlie the orbits on either side. Metallic dental appliance is noted. Normal Not Available XR finger LT 3rd digiton XR finger LT 3rd digit [facility] [place] [address] [place] [address] XRay Report Signed Patient: Darius Valera MR#: [id number] 10 : 1960 Acct:[id number] Age/Sex: 63 / M ADM Date: 07/24/24 Loc: XDUCLY Room: Type: [facility] Attending Dr: Hannah Queen APRN Copies to: Hannah Queen APRN Ordering Provider: Hannah Queen APRN Date of Service: 07/24/24 XR/XR finger LT 3rd digit: LEFT MIDDLE FINGER PAIN XR finger LT 3rd digit 07/24/2024 10:46 AM SIGNS AND SYMPTOMS: Fall with injury to left hand along the middle finger. Pain and swelling at the proximal and distal interphalangeal joints. PROTOCOL: Frontal, lateral, and oblique radiographs of the left hand and third digit COMPARISON: None. FINDINGS: There is narrowing of the interphalangeal joints. There is a minimally displaced fracture along the dorsal plate of the base of the distal phalanx. There is soft tissue swelling which is greatest along the proximal interphalangeal joint. No additional fractures are noted. XR/XR finger LT 3rd digit IMPRESSION: There is a minimally displaced fracture along the dorsal plate of the base of the distal phalanx. There is soft tissue swelling which is greatest along the proximal interphalangeal joint. Impression dictated by: Donte Quevedo M.D.07/24/2024 11:26 AM Dictation Location: [place] [address] Transcribed By: WADE 07/24/241125 Dictated By: Donte Quevedo II, MD 07/24/241123 Signed By: 07/24/24 112 Normal [facility] VITAMIN D 25 HYDROXY,TOT+D2+ D3on 05-03-2024 LAB [facility]INA VITAMIN D 25 OH 53 ng/mL . [facility] Comment on above: Reference Range: All Ages: Target levels 30 - 100 VITAMIN D-2 <1.0 . [facility] Comment on above: This test was develo ped and its performance characteristics determined by [facility]. It has not been cleared or approved by the Food and Drug Administration. VITAMIN D-3 52 ng/mL . [facility] Comment on above: This test was develo ped and its performance characteristics determined by [facility]. It has not been cleared or approved by the Food and Drug Administration. Performed at: [facility] [address] [place] [id number] Wiping Rag Washer: Johnnie Jansen MD, Phone: [phone] [facility] Ferritin [Mass/volume] in Se rum or PlasmaOrdered By: Jose Solares on 04-23-2024 Ferritin [Mass/Vol] Ferritin [Mass/volum e] in Serum or Plasma 23.9-336.2 [facility] Ferritin [Mass/Vol] 63.9 ng/mL 23.9-336.2 [facility] Folate [Mass/volume] in Seru m or PlasmaOrdered By: Jose Solares on 04-23-2024 Folate [Mass/Vol] Folate [Mass/volume] in Serum or Plasma >5.9 [facility] Comment on above: Folate reference ran ge: >5.9 ng/mlThe WHO technical consultation on folate and vitamin [id number] has determined that folate concentrations lessthan 4 ng/ml are considered deficient. Folate [Mass/Vol] 16.9 ng/mL >5.9 [facility] Comment on above: Folate reference ran ge: >5.9 ng/mlThe WHO technical consultation on folate and vitamin [id number] has determined that folate concentrations lessthan 4 ng/ml are considered deficient. Iron [Mass/volume] in Serum or PlasmaOrdered By: Jose Solares on 04-23-2024 Iron [Mass/Vol] Iron [Mass/volume] i n Serum or Plasma [facility] Iron [Mass/Vol] 83 ug/dL [facility] Serum or plasma 25-hydroxyca lciferol measurement (mass/volume)Ordered By: Jose Solares on 04-23-2024 25-hydroxyvitamin D2 [Mass/Vol] Serum or plasma 25-hydroxycalciferol measurement (mass/volume) . [facility] Comment on above: This test was develo ped and its performance characteristicsdetermined by [facility]. It has not been cleared or approvedby the Food and Drug Administration. 25-hydroxyvitamin D2 [Mass/Vol] <1.0 ng/mL . [facility] Comment on above: This test was develo ped and its performance characteristicsdetermined by [facility]. It has not been cleared or approvedby the Food and Drug Administration. Serum or plasma 25-hydroxyvi tamin D measurement (mass/volume)Ordered By: Jose Solares on 04-23-2024 25-hydroxyvitamin D [Mass/Vol] Serum or plasma 25-hydroxyvitamin D measurement (mass/volume) . [facility] Comment on above: Reference Range:All Ages: Target levels 30 - 100 25-hydroxyvitamin D [Mass/Vol] 53 ng/mL . [facility] Comment on above: Reference Range:All Ages: Target levels 30 - 100 Serum or plasma calcidiol me asurement (mass/volume)Ordered By: Jose Solares on 04-23-2024 25-hydroxyvitamin D3 [Mass/Vol] Serum or plasma calcidiol measurement (mass/volume) . [facility] Comment on above: This test was develo ped and its performance characteristicsdetermined by [facility]. It has not been cleared or approvedby the Food and Drug Administration.Performed at: [facility] [id number] [place], [place] [id number] Director: Johnnie Jansen MD, Phone: [phone] 25-hydroxyvitamin D3 [Mass/Vol] 52 ng/mL . [facility] Comment on above: This test was develo ped and its performance characteristicsdetermined by [facility]. It has not been cleared or approvedby the Food and Drug Administration.Performed at: [facility] [id number] [place], [place] [id number] Director: Johnnie Jansen MD, Phone: [phone] Serum or plasma iron binding capacity measurement (mass/volume)Ordered By: Jose Solares on 04-23-2024 Iron binding capacity [Mass/Vol] Iron binding capacity [Mass/volume] in Serum or Plasma 255-450 [facility] Iron binding capacity [Mass/Vol] 304 ug/dL 255-450 [facility] Serum or plasma iron saturat ion measurement (mass fraction)Ordered By: Jose Solares on 04-23-2024 Iron saturation [Mass fraction] Iron saturation [Mass Fraction] in Serum or Plasma 20-50 [facility] Iron saturation [Mass fraction] 27.3 % -50 [facility] Transferrin [Mass/volume] in Serum or PlasmaOrdered By: Jose Solares on 04-23-2024 Transferrin [Mass/Vol] Transferrin [Mass /volume] in Serum or Plasma 203-362 [facility] Transferrin [Mass/Vol] 217 mg/dL -362 [facility] Vitamin B12 ser/plasOrdered By: Jose Solares on 04-23-2024 Cobalamin (Vitamin B12) [Mass/Vol] Vitamin B12 ser/plas 180 [facility] Cobalamin (Vitamin B12) [Mass/Vol] 554 pg/mL [facility] Alanine aminotransferase [En zymatic activity/volume] in Serum or PlasmaOrdered By: Christian Carlos on 04-20-2024 ALT [Catalytic activity/Vol] 30 U/L [facility] Albumin [Mass/volume] in Ser um or Plasma by Bromocresol green (BCG) dye binding methoOrdered By: Christian Carlos on 04-20-2024 Albumin BCG dye [Mass/Vol] 4.1 g/dL 3.5-5.7 [facility] Alkaline phosphatase [Enzyma tic activity/volume] in Serum or PlasmaOrdered By: Christian Carlos on 04-20-2024 ALP [Catalytic activity/Vol] 79 U/L 34-104 [facility] Anisocytosis LM Ql (Bld)Orde red By: Christian Carlos on 04-20-2024 Anisocytosis Ql (Bld) Slight [facility] Anisocytosis Ql (Bld) Anisocytosis [Pres ence] in Blood by Light microscopy [facility] Aspartate aminotransferase [ Enzymatic activity/volume] in Serum or PlasmaOrdered By: Christian Carlos on 04-20-2024 AST [Catalytic activity/Vol] 29 U/L 13-39 [facility] Basophils Auto (Bld) [#/Vol] Ordered By: Christian Carlos on 04-20-2024 Basophils (Bld) [#/Vol] 0.0 10*3/uL 0.0-0.2 [facility] Basophils/100 WBC Auto (Bld) Ordered By: Christian Carlos on 04-20-2024 Basophils/100 WBC (Bld) 0.3 % . [facility] Bilirubin.total [Mass/volume ] in Serum or PlasmaOrdered By: Christian Carlos on 04-20-2024 Bilirubin [Mass/Vol] 1.0 mg/dL 0.3-1.0 [facility] Calcium [Mass/volume] in Ser um or PlasmaOrdered By: Christian Carlos on 04-20-2024 Calcium [Mass/Vol] 8.8 mg/dL 8.6-10.3 [facility] Carbon dioxide, total [Moles /volume] in Serum or PlasmaOrdered By: Christian Carlos on 04-20-2024 CO2 [Moles/Vol] 31.5 mmol/L High 21.0-31.0 [facility] Chloride [Moles/volume] in S hesham or PlasmaOrdered By: Christian Carlos on 04-20-2024 Chloride [Moles/Vol] 105 mmol/L 98-107 [facility] Comprehensive metabolic pane aline 04-20-2024 Albumin [Mass/Vol] 4.1 g/dL 3.5 - 5.7 g/dL [facility] Albumin/Globulin [Mass ratio] 2.2 {ratio} [facility] ALP [Catalytic activity/Vol] 79 U/L 34 - 104 U/L [facility] ALT [Catalytic activity/Vol] 30 U/L 7 - 52 U/L [facility] Anion gap [Moles/Vol] 9.3 mmol/L 6.0 - 15.0 [facility] AST [Catalytic activity/Vol] 29 U/L 13 - 39 U/L [facility] Bilirubin [Mass/Vol] 1.0 mg/dL 0.3 - 1 .0 mg/dL [facility] Calcium [Mass/Vol] 8.8 mg/dL 8.6 - 10. 3 mg/dL [facility] Chloride [Moles/Vol] 105 mmol/L 98 - 10 7 mmol/L [facility] CO2 [Moles/Vol] 31.5 mmol/L High 21.0 - 31.0 mmol/L [facility] Creatinine (U) [Mass/Vol] 0.90 mg/dL 0.70 - 1.30 mg/dL [facility] CREATININE CLR CALC PHARMACY 91.01 [facility] GFR/1.73 sq M.predicted MDRD (S/P/Bld) [Vol rate/Area] mL/min/{1.73_m2} [facility] Globulin (S) [Mass/Vol] 1.9 g/dL [facility] Glucose [Mass/Vol] 95 mg/dL 70 - 100 mg/dL [facility] Comment on above: Random Glucose Refer ence Range is dependent on time and content of last meal. Glucose of more than 200 mg/dL in a nonstressed, ambulatory subject supports the diagnosis of Diabetes Mellitus. ADA recommended reference range Interpretation and review of laboratory results Abnormal [facility] Potassium [Moles/Vol] 3.8 mmol/L 3.5 - 5.1 mmol/L [facility] Protein [Mass/Vol] 6.0 g/dL Low 6.4 - 8.9 g/dL [facility] Sodium [Moles/Vol] 142 mmol/L 136 - 145 mmol/L [facility] Urea nitrogen [Mass/Vol] 20 mg/dL 7 - 25 mg/dL [facility] Creatinine [Mass/volume] in Serum or PlasmaOrdered By: Christian Carlos on 04-20-2024 Creatinine [Mass/Vol] 0.90 mg/dL 0.70-1.30 [facility] Eosinophils Auto (Bld) [#/Vo l]Ordered By: Christian Carlos on 04-20-2024 Eosinophils (Bld) [#/Vol] 0.2 10*3/uL 0.0-0.45 [facility] Eosinophils/100 WBC Auto (Bl d)Ordered By: Christian Carlos on 04-20-2024 Eosinophils/100 WBC (Bld) 1.4 % . [facility] Erythrocyte distribution wid th Auto (RBC) [Ratio]Ordered By: Christian Carlos on 04-20-2024 Erythrocyte distribution width (RBC) [Ratio] 13.9 % 12.0-14.8 [facility] Globulin Calc (S) [Mass/Vol] Ordered By: Christian Carlos on 04-20-2024 Globulin (S) [Mass/Vol] 1.9 g/dL [facility] Glucose [Mass/volume] in Ser um or PlasmaOrdered By: Christian Carlos on 04-20-2024 Glucose [Mass/Vol] 95 mg/dL 70-100 [facility] Comment on above: ADA recommended refe rence rangeRandom Glucose Reference Range is dependent on time and content of last meal. Glucose of more than 200 mg/dL in a nonstressed, ambulatory subject supports the diagnosis of Diabetes Mellitus. Hematocrit Auto (Bld) [Volum e fraction]Ordered By: Christian Carlos on 04-20-2024 Hematocrit (Bld) [Volume fraction] 43.3 % 38.8-50.0 [facility] Hemoglobin [Mass/volume] in BloodOrdered By: Christian Carlos on 04-20-2024 Hemoglobin (Bld) [Mass/Vol] 14.8 g/dL 13.0-17.0 [facility] LDH Lactate to pyruvate reac tion [Catalytic activity/Vol]on 04-20-2024 LDH LACTATE DEHYDROGENASE 212 U/L 140 - 271 U/L [facility] Lactate dehydrogenase [Enzym atic activity/volume] in Serum or Plasma by Lactate to pyOrdered By: Christian Carlos on 04-20-2024 LDH Lactate to pyruvate reaction [Catalytic activity/Vol] 212 U/L 140-271 [facility] Leukocytes [#/volume] correc christophe for nucleated erythrocytes in Blood by Automated counOrdered By: Christian Carlos on 04-20-2024 WBC corrected for nucl RBC Auto (Bld) [#/Vol] 13.3 10*3/uL High 4.1-10.5 [facility] Lymphocytes Auto (Bld) [#/Vo l]Ordered By: Christian Carlos on 04-20-2024 Lymphocytes (Bld) [#/Vol] 9.9 10*3/uL High 1.00-4.8 [facility] Lymphocytes/100 WBC Auto (Bl d)Ordered By: Christian Carlos on 04-20-2024 Lymphocytes/100 WBC (Bld) 74.8 % . [facility] MCH Auto (RBC) [Entitic mass ]Ordered By: Christian Carlos on 04-20-2024 MCH (RBC) [Entitic mass] 31.2 pg 27.5-35.2 [facility] MCHC Auto (RBC) [Mass/Vol]Or dered By: Christian Carlos on 04-20-2024 MCHC (RBC) [Mass/Vol] 34.2 g/dL 32.5-35.6 [facility] MCV Auto (RBC) [Entitic vol] Ordered By: Christian Carlos on 04-20-2024 MCV (RBC) [Entitic vol] 91.4 fL 83.5-101 [facility] Microcytes LM Ql (Bld)Ordere d By: Christian Carlos on 04-20-2024 Microcytes Ql (Bld) Slight [facility] Microcytes Ql (Bld) Microcytes [Presence ] in Blood by Light microscopy [facility] Monocytes Auto (Bld) [#/Vol] Ordered By: Christian Carlos on 04-20-2024 Monocytes (Bld) [#/Vol] 0.5 10*3/uL 0.0-0.8 [facility] Monocytes/100 WBC Auto (Bld) Ordered By: Christian Carlos on 04-20-2024 Monocytes/100 WBC (Bld) 3.7 % . [facility] Neutrophils Auto (Bld) [#/Vo l]Ordered By: Christian Carlos on 04-20-2024 Neutrophils (Bld) [#/Vol] 2.6 10*3/uL 1.8-7.7 [facility] Neutrophils/100 WBC Auto (Bl d)Ordered By: Christian Carlos on 04-20-2024 Neutrophils/100 WBC (Bld) 19.8 % . [facility] No Panel Informationon 04-20 [facility] No Panel InformationOrdered By: Christian Carlos on 04-20-2024 Estimated GFR (CKD-EPI) > 60.0 mL/Min [facility] Creatinine Clearance (Chem 91.01 [facility] Nucleated erythrocytes [Pres ence] in Blood by Automated countOrdered By: Christian Carlos on 04-20-2024 Nucleated RBC Auto Ql (Bld) 0.3 /100{WBC} 0-0.5 [facility] Platelet adequacy [Presence] in Blood by Light microscopyOrdered By: Christian Carlos on 04-20-2024 Platelets LM Ql (Bld) Decreased Normal [facility] Platelet mean volume Auto (B ld) [Entitic vol]Ordered By: Christian Carlos on 04-20-2024 Platelet mean volume (Bld) [Entitic vol] 8.5 fL 6.6-10.1 [facility] Platelet morphology finding [Identifier] in BloodOrdered By: Christian Carlos on 04-20-2024 Platelet morphology finding Nom (Bld) Normal Normal [facility] Platelets Auto (Bld) [#/Vol] Ordered By: Christian Carlos on 04-20-2024 Platelets (Bld) [#/Vol] 108 10*3/uL Low 150-450 [facility] Potassium [Moles/volume] in Serum or PlasmaOrdered By: Christian Carlos on 04-20-2024 Potassium [Moles/Vol] 3.8 mmol/L 3.5-5.1 [facility] Protein [Mass/volume] in Ser um or PlasmaOrdered By: Christian Carlos on 04-20-2024 Protein [Mass/Vol] 6.0 g/dL Low 6.4-8.9 [facility] RBC Auto (Bld) [#/Vol]Ordere d By: Christian Carlos on 04-20-2024 RBC (Bld) [#/Vol] 4.74 10*6/uL 3.90-5.60 [facility] RBC morphologyOrdered By: Maik Carlos on 04-20-2024 RBC morphology finding Nom (Bld) N/A [facility] Serum or plasma albumin/glob ulin mass ratioOrdered By: Christian Carlos on 04-20-2024 Albumin/Globulin [Mass ratio] 2.2 {ratio} [facility] Serum or plasma anion gap de terminationOrdered By: Christian Carlos on 04-20-2024 Anion gap [Moles/Vol] 9.3 mmol/L 6.0-15.0 [facility] Sodium [Moles/volume] in Ser um or PlasmaOrdered By: Christian Carlos on 04-20-2024 Sodium [Moles/Vol] 142 mmol/L 136-145 [facility] Urea nitrogen [Mass/volume] in Serum or PlasmaOrdered By: Christian Carlos on 04-20-2024 Urea nitrogen [Mass/Vol] 20 mg/dL 7-25 [facility] WBC Auto (Bld) [#/Vol]Ordere d By: Christian Carlos on 04-20-2024 WBC (Bld) [#/Vol] 13.3 10*3/uL High 4.1-10.5 [facility] CNOVon 01-30-2024 CNOV Office Visit (CARDAV ) -- DARIUS VALERA ([id number]) 1960 M Date Time Provider Department 01/30/24 3:00 PM ITA TUTTLE During your visit today, we recorded the following information about you: Pulse Blood pressure Weight Height 66/minute 148/80 92.6 kg 1.829 m Ita Tuttle MD 01/30/2024 2:47 PM Signed [facility] [place] Sissy Zepeda Department of Cardiovascular Medicine SECTION OF REGIONAL CARDIOLOGY OUTPATIENT VISIT DATE January 30, 2024 OUTPATIENT VISIT TYPE ESTABLISHED HISTORY OF PRESENT ILLNESS: Darius Valera is a (an) 63 year old year old male who is here today for follow-up. He had elevated WBCs and was seen by outside offline cutter and was told might have CLL Last OV 10/03/23 Darius Valera is a (an) 63 year old year old male who is here today for follow-up. Since last visit denies chest pain, SOB, palpitations or lightheadedness. Was seen by EP and noted to have elevated BP. Was added on Bystolic. Darius Valera is a (an) 62 year old year old male who is here today for follow-up. Since last visit denies chest pain, SOB, palpitations or lightheadedness. Was taken off Eliquis by EP. Darius Valera is a (an) 62 year old year old male who is here today for follow up. Since last visit denies chest pain, SOB, TAY, palpitations or edema. He brought his BP log book which showed occasional elevated BP at home in the morning.Had some labs at work. Darius Valera is a 62 year old male here today for follow up from [place], [place]. Has h/o AF s/p ablation, HTN, DMITRY, tachycardia induced CMP, and CHF. On Eliquis, Nifedipine XL, Valsartan/HCTZ added on Doxazosin. Doxazocin increased to 2 mg but has been using only 1 mg daily. Continue to have BP spikes above 150s. Sotalol was discontinued. He followed before with a local dairy consultant Dr Hooks. Since last visit denies chest pain or SOB, orthopnea or palpitations Had CT of chest which showed atherosclerosis with mild aortic root ectasia 4.3 cm No past medical history on file. No past surgical history on file. No family history on file. SOCIAL HISTORY Social History Tobacco Use Smoking status: Never Smokeless tobacco: Never Substance Use Topics Alcohol use: Not Currently Drug use: Never ALLERGIES: Patient has no known allergies. CURRENT MEDICATIONS: Current Outpatient Medications Medication Sig meloxicam (MOBIC) 15 mg tablet TAKE 1 TABLET (15 MG) BY MOUTH DAILY NEEDED FOR MILD PAIN NIFEdipine XL (ADALAT CC) 30 mg 24 hr tablet take one tablet by mouth daily nebivolol (BYSTOLIC) 5 mg tablet Take 1 tablet by mouth once daily. aspirin, enteric coated (ASPIRIN, ENTERIC COATED) 81 mg EC tablet Take 81 mg by mouth. doxazosin (CARDURA) 4 mg tablet Take 1 tablet by mouth daily at bedtime. Valsartan-hydroCHLOROthiaz ashleigh 320-25 mg per tablet TAKE ONE TABLET BY MOUTH DAILY sildenafil citrate (VIAGRA ORAL) Take by mouth as needed. Current Facility-Administered Medications Medication Dose Route Frequency perflutren lipid microspheres 1.3 mL in NaCl (PF) 0.9% 10 mL injection (DEFINITY) INTRAVENOUS DIRECTED PRN sodium chloride 0.9 % (flush) 10 mL (BD POSIFLUSH) 10 mL INTRAVENOUS DIRECTED PRN REVIEW OF SYSTEMS: CARDIOVASCULAR: See present history. PULMONARY:No cough or sputum production GASTROINTESTINAL:no bowel changes. GENITOURINARY:no urinary symptoms. ENDOCRINE:no significant weight loss/gain, heat/cold intolerance. NEUROLOGICAL:no focal weakness, focal sensory loss, headache, visual changes, seizure activity, ataxia, speech/language loss. RHEUMATOLOGY:no joint swelling, back pain, knee pain, hip pain, or neck pain. INFECTION:no fevers, chills, rigors or night sweats. SKIN:no rash HEMATOLOGY:no bruising, GI bleeding, hematuria, or spontaneous bleeding I have personally interviewed, confirmed and edited the above information if obtained by others - Bill Tuttle M.D. PHYSICAL EXAMINATION: Last 3 Encounter BP Readings: Date: BP: 10/03/2023 136/76 09/12/2023 148/76 07/31/2023 154/88 Last 3 Encounter Pulse Readings: Date: Pulse: 10/03/2023 59 09/12/2023 74 07/31/2023 71 Last 3 Encounter Wt Readings: Date: Wt: 10/03/2023 91.2 kg (201 lb 1 oz) 09/12/2023 89.8 kg (198 lb) 07/31/2023 88.9 kg (196 lb) BP 148/80 Pulse 66 Ht 6' 0 (1.83m) Wt 204 lb 2.3 oz (92.6kg) SpO2 97% BMI 27.68 kg/(m2). GENERAL:No acute distress HEENT:Atraumatic, normocephalic. NECK: No JVD, no HJR, no carotid bruit, normal carotid upstrokes, no thyromegaly CARDIAC: Regular rhythm. Normal S1 and S2. No murmur, rub or gallop. LUNGS: clear to auscultation, no rhonchi, no rales, no wheezes ABDOMEN: Bowel sounds normal. EXTREMITIES: No peripheral edema NEURO: Oriented to person, place, and time. Appropriate and cooperative, no gross deficit. _ (more content not included)... Normal [facility] No Panel InformationOrdered By: Christian Carlos on 01-26-2024 CBC Comment See comment [facility] Comment on above: Slide referred to dorothea thologist for review Smudge cell detectionOrdered By: Christian Carlos on 01-26-2024 Smudge cells LM Ql (Bld) Moderate [facility] Smudge cells [Presence] in B lood by Light microscopyOrdered By: Christian Carlos on 01-26-2024 Smudge cells LM Ql (Bld) Smudge cell detection [facility] Consultation Noteon 01-16-20 Consultation Note [id number] Normal [facility] Comment on above: Other Comment: [facility] CNOVon 10-03-2023 CNOV Office Visit (GERSON ) -- DARIUS VALERA ([id number]) 1960 M Date Time Provider Department 10/03/23 1:30 PM ITA TUTTLE During your visit today, we recorded the following information about you: Pulse Respiration Blood pressure Weight 59/minute 16/minute 136/76 91.2 kg Height 1.829 m Ita Tuttle MD 10/03/2023 1:43 PM Signed [facility] [place] Sissy Zepeda Department of Cardiovascular Medicine SECTION OF REGIONAL CARDIOLOGY OUTPATIENT VISIT DATE October 03, 2023 OUTPATIENT VISIT TYPE ESTABLISHED HISTORY OF PRESENT ILLNESS: Darius Valera is a (an) 63 year old year old male who is here today for follow-up. Since last visit denies chest pain, SOB, palpitations or lightheadedness. Was seen by EP and noted to have elevated BP. Was added on Bystolic. Last OV 07/31/23 Darius Valera is a (an) 62 year old year old male who is here today for follow-up. Since last visit denies chest pain, SOB, palpitations or lightheadedness. Was taken off Eliquis by EP. Darius Valera is a (an) 62 year old year old male who is here today for follow up. Since last visit denies chest pain, SOB, TAY, palpitations or edema. He brought his BP log book which showed occasional elevated BP at home in the morning.Had some labs at work. Darius Valera is a 62 year old male here today for follow up from [place], [place]. Has h/o AF s/p ablation, HTN, DMITRY, tachycardia induced CMP, and CHF. On Eliquis, Nifedipine XL, Valsartan/HCTZ added on Doxazosin. Doxazocin increased to 2 mg but has been using only 1 mg daily. Continue to have BP spikes above 150s. Sotalol was discontinued. He followed before with a local dairy consultant Dr Hooks. Since last visit denies chest pain or SOB, orthopnea or palpitations Had CT of chest which showed atherosclerosis with mild aortic root ectasia 4.3 cm SOCIAL HISTORY Social History Tobacco Use Smoking status: Never Smokeless tobacco: Never Substance Use Topics Alcohol use: Not Currently Drug use: Never ALLERGIES: Patient has no known allergies. CURRENT MEDICATIONS: Current Outpatient Medications Medication Sig nebivolol (BYSTOLIC) 5 mg tablet Take 1 tablet by mouth once daily. aspirin, enteric coated (ASPIRIN, ENTERIC COATED) 81 mg EC tablet Take 81 mg by mouth. doxazosin (CARDURA) 4 mg tablet Take 1 tablet by mouth daily at bedtime. Valsartan-hydroCHLOROthiaz ashleigh 320-25 mg per tablet TAKE ONE TABLET BY MOUTH DAILY NIFEdipine XL (ADALAT CC) 30 mg 24 hr tablet Take 1 tablet by mouth once daily. sildenafil citrate (VIAGRA ORAL) Take by mouth as needed. Current Facility-Administered Medications Medication Dose Route Frequency perflutren lipid microspheres 1.3 mL in NaCl (PF) 0.9% 10 mL injection (DEFINITY) INTRAVENOUS DIRECTED PRN sodium chloride 0.9 % (flush) 10 mL (BD POSIFLUSH) 10 mL INTRAVENOUS DIRECTED PRN REVIEW OF SYSTEMS: CARDIOVASCULAR: See present history. PULMONARY:No cough or sputum production GASTROINTESTINAL:no bowel changes. GENITOURINARY:no urinary symptoms. ENDOCRINE:no chronic fatigue, significant weight loss/gain, heat/cold intolerance. NEUROLOGICAL:no focal weakness, focal sensory loss, headache, visual changes, seizure activity, ataxia, speech/language loss. RHEUMATOLOGY:no joint swelling INFECTION:no fevers, chills, rigors or night sweats. SKIN:no rash HEMATOLOGY:no bruising, GI bleeding, hematuria, or spontaneous bleeding I have personally interviewed, confirmed and edited the above information if obtained by others - Bill Tuttle M.D. PHYSICAL EXAMINATION: Last 3 Encounter BP Readings: Date: BP: 09/12/2023 148/76 07/31/2023 154/88 01/17/2023 132/62 Last 3 Encounter Pulse Readings: Date: Pulse: 09/12/2023 74 07/31/2023 71 01/17/2023 75 Last 3 Encounter Wt Readings: Date: Wt: 09/12/2023 89.8 kg (198 lb) 07/31/2023 88.9 kg (196 lb) 01/17/2023 88.9 kg (196 lb) BP 136/76 Pulse 59 Resp 16 Ht 6' 0 (1.83m) Wt 201 lb 1 oz (91.2kg) SpO2 99% BMI 27.26 kg/(m2). GENERAL:No acute distress HEENT:Atraumatic, normocephalic. NECK: No JVD, no HJR, no carotid bruit, normal carotid upstrokes, no thyromegaly CARDIAC: Regular rhythm. Normal S1 and S2. No murmur, rub or gallop. LUNGS: clear to auscultation, no rhonchi, no rales, no wheezes ABDOMEN: Bowel sounds normal. EXTREMITIES: No peripheral edema NEURO: Oriented to person, place, and time. Appropriate and cooperative, no gross deficit. _ LABS: Cholesterol, Total (mg/dL) Date Value 04/01/2022 173 HDL Cholesterol (mg/dL) Date Value 04/01/2022 52 LDL Cholesterol (mg/dL) Date Value 04/01/2022 104 Triglyceride (mg/dL) Date Value 04/01/2022 85 No results found for: NMRTOT AST (U/L) Date Value 04/01/2022 23 ALT (U/L) Date Value (more content not included)... Normal [facility] ECG COMPLETEon 07-31-2023 Atrial Rate 71 BPM [facility] Calculated P [place] [address] [facility] Calculated R [place] -15 degrees [facility] Calculated T [place] 28 degrees [facility] P-R Interval 172 ms [facility] QRS Duration 98 ms [facility] QT Interval 404 ms [facility] QTC Calculation (Bazett) 439 ms [facility] Ventricular Rate 71 BPM [facility] Auth for Release of Medical Recordson 07-10-2023 Auth for Release of Medical Records [id number] [facility] Lab Reportson 06-09-2023 Lab Reports [id number] [facility] Screenson 06-03-2023 Screens [id number] [facility] Ambulatory Visit Summaryon 1 0-09-2023 Ambulatory Visit Summary DARIUS VALERA :1960 Visit Date:06/02/2023 Ambulatory Visit Instructions Your Diagnosis Ureteral stone with hydronephrosis Erectile dysfunction Tests Performed Urnls Dip Stick Auto w/o Microscopy POC 85129 Your Care Team Attending Physician - Stevenson LYNCH, Iesha Wen This Is Your Medications List amlodipine aspirin (aspirin 81 mg oral tablet) atenolol (atenolol 100 mg Tab) hydrochlorothiazide-lisino pril (hydrochlorothiazide-lisin opril 12.5 mg-20 mg Tab) omega-3 polyunsaturated fatty acids (Mcclave-3) potassium chloride (Klor-Con) Discharge Vitals Heart Rate (Peripheral) 75 Blood Pressure 148/90 Height 182 cm Height 72 in Weight 91 kg Weight 200.2 lb BMI 27.47 Medications What How Much When Instructions Unchanged amlodipine 5 Milligram By Mouth Every day Unchanged aspirin (aspirin 81 mg oral tablet) 1 Tablets By Mouth Every day Unchanged atenolol (atenolol 100 mg Tab) 1 Tablets By Mouth Every day Unchanged hydrochlorothiazide-lisino pril (hydrochlorothiazide-lisin opril 12.5 mg-20 mg Tab) 1 Tablets By Mouth Every day Unchanged omega-3 polyunsaturated fatty acids (Mcclave-3) Unchanged potassium chloride (Klor-Con) Test Results Urnls Dip Stick Auto w/o Microscopy POC 83583 (06/02/2023) Bilirubin Urine Dipstick - Negative Blood Urine Dipstick - Trace-intact Glucose Urine Dipstick - Negative Ketones Urine Dipstick - Negative Leukocytes Urine Dipstick - Negative Nitrite Urine Dipstick - Negative Protein Urine Dipstick - Negative Specific [place] Urine Dipstick - 1.015 Urine Appearance Urine Dipstick - Clear Urine Color Urine Dipstick - Yellow Urobilinogen Urine Dipstick - Normal 0.2-1 EU/dl pH Urine Dipstick - 5.5 Allergies No Known Allergies Problems Ongoing - Any problem that you are currently receiving treatment for. Arteriosclerotic vascular disease Benign essential hypertension Dyspnea Erectile dysfunction Essential hypertension Hydronephrosis Hyperlipidemia Kidney stone Nodule of lung Persistent atrial fibrillation Sleep apnea Ureteral stone Ureteral stone with hydronephrosis [facility] Patient Educationon 10-09-20 23 Patient Education Urology Erectile Dysfunction Erectile dysfunction (ED) is the inability to get or keep an erection in order to have sexual intercourse. ED is considered a symptom of an underlying disorder and is not considered a disease. ED may include: ? Inability to get an erection. ? Lack of enough hardness of the erection to allow penetration. ? Loss of erection before sex is finished. What are the causes? This condition may be caused by: ? Physical causes, such as: ? Artery problems. This may include heart disease, high blood pressure, atherosclerosis, and diabetes. ? Hormonal problems, such as low testosterone. ? Obesity. ? Nerve problems. This may include back or pelvic injuries, multiple sclerosis, Parkinson's disease, spinal cord injury, and stroke. ? Certain medicines, such as: ? Pain relievers. ? Antidepressants. ? Blood pressure medicines and water pills (diuretics). ? Cancer medicines. ? Antihistamines. ? Muscle relaxants. ? Lifestyle factors, such as: ? Use of drugs such as marijuana, cocaine, or opioids. ? Excessive use of alcohol. ? Smoking. ? Lack of physical activity or exercise. ? Psychological causes, such as: ? Anxiety or stress. ? Sadness or depression. ? Exhaustion. ? Fear about sexual performance. ? Guilt. What are the signs or symptoms? Symptoms of this condition include: ? Inability to get an erection. ? Lack of enough hardness of the erection to allow penetration. ? Loss of the erection before sex is finished. ? Sometimes having normal erections, but with frequent unsatisfactory episodes. ? Low sexual satisfaction in either partner due to erection problems. ? A curved penis occurring with erection. The curve may cause pain, or the penis may be too curved to allow for intercourse. ? Never having nighttime or morning erections. How is this diagnosed? This condition is often diagnosed by: ? Performing a physical exam to find other diseases or specific problems with the penis. ? Asking you detailed questions about the problem. ? Doing tests, such as: ? Blood tests to check for diabetes mellitus or high cholesterol, or to measure hormone levels. ? Other tests to check for underlying health conditions. ? An ultrasound exam to check for scarring. ? A test to check blood flow to the penis. ? Doing a sleep study at home to measure nighttime erections. How is this treated? This condition may be treated by: ? Medicines, such as: ? Medicine taken by mouth to help you achieve an erection (oral medicine). ? Hormone replacement therapy to replace low testosterone levels. ? Medicine that is injected into the penis. Your health care provider may instruct you how to give yourself these injections at home. ? Medicine that is delivered with a short applicator tube. The tube is inserted into the opening at the tip of the penis, which is the opening of the urethra. A tiny pellet of medicine is put in the urethra. The pellet dissolves and enhances erectile function. This is also called MUSE (medicated urethral system for erections) therapy. ? Vacuum pump. This is a pump with a ring on it. The pump and ring are placed on the penis and used to create pressure that helps the penis become erect. ? Penile implant surgery. In this procedure, you may receive: ? An inflatable implant. This consists of cylinders, a pump, and a reservoir. The cylinders can be inflated with a fluid that helps to create an erection, and they can be deflated after intercourse. ? A semi-rigid implant. This consists of two silicone rubber rods. The rods provide some rigidity. They are also flexible, so the penis can both curve downward in its normal position and become straight for sexual intercourse. ? Blood vessel surgery to improve blood flow to the penis. During this procedure, a blood vessel from a different part of the body is placed into the penis to allow blood to flow around (bypass) damaged or blocked blood vessels. ? Lifestyle changes, such as exercising more, losing weight, and quitting smoking. Follow these instructions at home: Medicines ? Take dwpe-bau-viybrnj and prescription medicines only as told by your health care provider. Do not increase the dosage without first discussing it with your health care provider. ? If you are using self-injections, do injections as directed by your health care provider. Make sure you avoid any veins that are on the surface of the penis. After giving an injection, apply pressure to the injection site for 5 minutes. ? Talk to your health care provider about how to prevent headaches while taking ED medicines. These medicines may cause a sudden headache due to the increase in blood flow in your body. General instructions ? Exercise regularly, as directed by your health care provider. Work with your health care provider to lose weight, if needed. ? Do not use any products that contain nicotine or tobacco. These products include cig (more content not included)... Normal [facility] Urology Office/Clinic Noteon 06-02-2023 Urology Office/Clinic Note Chief Complaint follow up to [facility]/consult HPI Staff 62 year old male seen at [facility] consult for Lt. UVJ stone,hydro,renal colic, GRACE on 04/14/23. CT done 04/09/23. S/P Cysto/Lt. RGP/Lt. ureteroscopy with stone basket extraction/stent placement done 04/14/23. Renal US done 04/14/23 and 05/24/23. Dysuria: no Incomplete bladder emptying: no Hematuria: no Frequency: no Urgency: no Nocturia: 1x Stream: good stream Leaking: no Post void dripping: no Wearing pads/ Depends: no Urge incontinence: no Stress incontinence: no Incontinence without Sensory Awareness: Abdominal pain: no Flank pain: no Sexual complaints: no History of Present Illness Tests reviewed: Reviewed UA, CT, JAMILAH, KUB, external records I have reviewed the previous health record information and history for this patient from external provider. I have reviewed and verified the staff HPI to be accurate for this encounter. There have been no associated fever, chills, flank pain, or blood in the urine. Denies any urinary infections since last encounter. Review of Systems PHQ Score Initial Depression Screen Score: 0 ROS - Provider Constitutional: denies weight loss, denies hot flashes. Eyes: denies eye problems. Gastrointestinal: denies nausea, denies vomiting. Cardiovascular: denies chest pain or angina. Integumentary: no dryness Musculoskeletal: denies musculoskeletal symptoms. ENMT: denies otolaryngeal symptoms. Respiratory: no shortness of breath. Heme/Lymph: denies easy bleeding tendency, denies easy bruising tendency. Psychiatric: no confusion, no anxiety. Genitourinary: See HPI. Physical Exam Vitals & Measurements HR: 75(Peripheral) BP: 148/90 HT: 72 in HT: 182 cm WT: 91 kg WT: 200.2 lb BMI: 27.47 General Appearance: alert, no distress, well nourished, well developed male. Head: normocephalic . Eyes: normal orbit and globe. ENMT: normal examination of external ears. Chest: symmetric chest rise, respirations non labored. Cardiovascular: regular rate and rhythm. Abdomen: soft, non distended, no tenderness Genitourinary: Flank Pain: none. Bladder: nonpalpable. Skin: warm, dry, no bruising. Psychiatric: cooperative, affect appropriate for age, normal judgement, euthymic mood. Assessment/Plan 62 yo male following up urology consult and laser lithotripsy for ureteral stone IPSS 7, urination is not bothersome. States PSA has been checked and wnl by PCP Denies medical issues, hx of WI, stroke or DM2. On ASA 81mg Portions of this record may have been created with voice recognition artificial intelligence software, specifically [employer], [employer] and or [employer]. Substitutions may have occurred due to the inherent limitations of voice recognition and artificial intelligence software. 1. Ureteral stone with hydronephrosis (N13.2: Hydronephrosis with renal and ureteral calculous obstruction) Last stone event 10 years ago, denies surgical intervention. Pt presented to [facility] ER 04/14/23 with uncontrolled left flank pain and nausea. Initially diagnosed w/ a 3 mm left UVJ stone with mild hydro on CT scan and ER visit 04/09/23. Pt was sent home with Flomax, Cipro and Percocet. Workup revealed improved WBC from 21 to 14.5 but Cr 1.6 from normal prior. UA remained neg for UTI. CT AP wo IV con 04/09/23 - 3 mm calculus at the left UVJ with mild collecting system dilatation proximally and mild left perinephric fat stranding. S/p cysto, L RPG, ureteroscopy with stone basket extraction, stent placement 04/14/23. Repeat JAMILAH 05/24/23 previous left UVJ stone is no longer seen. No hydronephrosis. Pt states he drinks over 90oz of water daily. We discussed management options moving forward including general dietary modifications, metabolic stone work-up including serum labs and 24-hour urine analysis, continued surveillance with imaging in 6 to 12 months or expectant management. The patient like to proceed with general recommendations for stone prevention: -Maintaining urine output > 2.5 liters a day. -Fluid intake > 3 liters a day, consisting of mostly water, although orange juice and lemonade are also excellent choices in non-obese, non-diabetic patients who have concomitant hypocitraturia. Some experts recommend avoiding dark, sugary soda. --Start by increasing fluid intake by 1 L. Add a mixture of 60 ml of concentrated lemon juice in 1 L of water to increase their urinary citrate levels, as citrus juices act as a stone inhibitor for calcium based stones. -Fluid should not be restricted at night, since overnight dehydration and have been implicated as causative factors in nephrolithiasis. -Decrease animal protein intake, in particular: wild game, goose, liver, duck, turkey, chicken, red meat, pork, and seafood should be consumed in moderation. -Restrict sodium to 2.4 grams a day. 1.5 g of sodium a day in those with HTN, Americans, or middle-older aged adults. -Maintain normal calcium oxalate intake fro (more content not included)... Normal [facility] Comment on above: Result Comment: Elec tronically Signed By: Stevenson LYNCH, Iesha Wen\.br\Date and Time Signed: 06/02/23 17:30 EDT\.br\Electronically Co-Signed By: Patience Castellon\.br\Date and Time Co-Signed: 06/02/23 16:04 EDT RAD - Ultrasound Reporton RAD - Ultrasound Report [id number]#1.00CD:127 [facility] Consultation Noteon 05-19-20 Consultation Note [id number]#1.00CD:127 [facility] Insurance Correspondence Off iceon 04-16-2023 Insurance Correspondence Office [id number]#1.00CD:127 [facility] Lab Reportson 04-16-2023 Lab Reports [id number]#1.00CD:127 [facility] Consultation Noteon 04-15-20 Consultation Note [id number]#1.00CD:127 [facility] Operative Reporton Operative Report [id number]#1.00CD:127 Normal [facility] RAD - MISCon 04-14-2023 RAD - MISC [id number]#1.00CD:127 Normal [facility] RAD - Ultrasound Reporton RAD - Ultrasound Report [id number]#1.00CD:127 Normal [facility] RAD - CT Reporton 04-12-2023 RAD - CT Report [id number]#1.00CD:127 Normal [facility] Consultation Noteon 02-19-20 Consultation Note [id number]#1.00CD:127 Normal [facility] MRI ANKLE RT WO CONon 2022 MRI ANKLE RT WO CON EXAM: MRI ANKLE RT W O CON HISTORY: Contusion of right ankle continued right ankle pain. COMPARISON: Right ankle x-rays 12/24/2022. TECHNIQUE: Multi planar, multisequence MR imaging of the right ankle without contrast. Findings: Bones and cartilage: No acute fracture or malalignment. Well-corticated ossific fragment adjacent to the tip of the medial malleolus likely represents the sequelae of old trauma. 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 No articular erosions. No osteochondral abnormality. No significant joint effusion. Muscles and tendons: The axial lesions, anterior, medial and lateral ligaments about the ankle are intact. There is minimal posterior tibial and flexor digitorum with mild flexor analysis longus tenosynovitis. No significant tendinosis. No abnormal signal within the visualized musculature. Ligaments: The medial and lateral ligaments about the ankle are intact. The spring ligament is intact. Fat signal persists within the sinus Tarsi. Miscellaneous: The plantar fascia is not thickened. IMPRESSION: 1. No acute fracture or malalignment. 2. Minimal wall posterior tibial and flexor digitorum longus mild flexor hallucis longus tenosynovitis. Electronically authenticated by: JANAY PANDYA Date: 2023-01-22 07:40 Normal [facility] CBC AUTO DIFFon 05-05-2023 BASO # 0.0 103/ul Normal 0.0-0.1 [facility] Comment on above: Performed By: #### C BC #### [facility] [address] [place] [address] Dr. Gautam Van Basophils/100 WBC (Bld) 0.4 % Normal 0.2-2.0 [facility] Comment on above: Performed By: #### C BC #### [facility] [address] [place] [address] Dr. Gautam Van EO # 0.1 103/ul Normal 0.0-0.7 [facility] Comment on above: Performed By: #### C BC #### [facility] [address] [place] [address] Dr. Gautam Van Eosinophils/100 WBC (Bld) 1.3 % Normal 0.9-7.0 [facility] Comment on above: Performed By: #### C BC #### [facility] [address] [place] [address] Dr. Gautam Van Erythrocyte distribution width (RBC) [Ratio] 12.6 % Normal 11.0-15.0 [facility] Comment on above: Performed By: #### C BC #### [facility] [address] [place] [address] Dr. Gautam Van Hematocrit (Bld) [Volume fraction] 47.0 % Normal 42.0-54.0 [facility] Comment on above: Performed By: #### C BC #### [facility] [address] [place] [address] Dr. Gautam Van Hemoglobin (Bld) [Mass/Vol] 16.1 g/dL Normal 14.0-18.0 [facility] Comment on above: Performed By: #### C BC #### [facility] [address] [place] [address] Dr. Gautam Van IG # 0.02 10e3/ul Normal 0.00-0.03 [facility] Comment on above: Performed By: #### C BC #### [facility] [address] [place] [address] Dr. Gautam Van IG % 0.2 % Normal 0.0-0.5 [facility] Comment on above: Performed By: #### C BC #### [facility] [address] [place] [address] Dr. Gautam Van LYMPH # 7.0 103/ul Critically high 1.2-3.8 [facility] Comment on above: Performed By: #### C BC #### [facility] [address] [place] [address] Dr. Gautam Van Lymphocytes/100 WBC (Bld) 64.7 % Critically high 20.5-60.0 [facility] Comment on above: Performed By: #### C BC #### [facility] [address] [place] [address] Dr. Gautam Van MANUAL DIFF REQ NO Normal [facility] Comment on above: Performed By: #### C BC #### [facility] [address] [place] [address] Dr. Gautam Van MCH (RBC) [Entitic mass] 30.7 pg Normal 25.9-34.0 [facility] Comment on above: Performed By: #### C BC #### [facility] [address] [place] [address] Dr. Gautam Van MCHC (RBC) [Mass/Vol] 34.3 g/dL Normal 29.9-35.2 [facility] Comment on above: Performed By: #### C BC #### [facility] [address] [place] [address] Dr. Gautam Van MCV (RBC) [Entitic vol] 89.7 fL Normal 80.0-94.0 [facility] Comment on above: Performed By: #### C BC #### [facility] [address] [place] [address] Dr. Gautam Van MONO # 0.5 103/ul Normal 0.3-0.8 [facility] Comment on above: Performed By: #### C BC #### [facility] [address] [place] [address] Dr. Gautam Van Monocytes/100 WBC (Bld) 4.6 % Normal 1.7-12.0 [facility] Comment on above: Performed By: #### C BC #### [facility] [address] [address] [address] Gautam Van NEUT # 3.1 103/ul Normal 1.4-6.5 [facility] Comment on above: Performed By: #### C BC #### [facility] [address] [address] [address] Gautam Van Neutrophils/100 WBC (Bld) 28.8 % Critically low 43.0-75.0 [facility] Comment on above: Performed By: #### C BC #### [facility] [address] [address] [address] Gautam Van Platelet mean volume (Bld) [Entitic vol] 10.6 fL Normal 9.5-13.5 [facility] Comment on above: Performed By: #### C BC #### [facility] [address] [address] [address] Gautam Van PLT 144 103/ul Critically low 150-450 [facility] Comment on above: Performed By: #### C BC #### [facility] [address] [address] [address] Gautam Van RBC 5.24 106/ul Normal 4.70-6.10 [facility] Comment on above: Performed By: #### C BC #### [facility] [address] [address] [address] Gautam Van WBC 10.8 103/ul Normal 4.0-11.0 [facility] Comment on above: Performed By: #### C BC #### [facility] [address] [address] [address] Gautam Van LIPID PROFILEon 12-27-2022 CHOL-HDL RATIO NORM SEE BELOW Normal [facility] Comment on above: Result Comment: 3.3 - 4.4 LOW RISK 4.4 - 7.1 AVERAGE RISK 7.1 - 11.0 MODERATE RISK >11.0 HIGH RISK Performed By: #### L IPID, T4, TSH, CMP ####[facility] [address] [address]Dr. Gautam Van Cholesterol [Mass/Vol] 183 mg/dL Normal <=200 [facility] Comment on above: Performed By: #### L IPID, T4, TSH, CMP ####[facility] [address] [id number]. Gautam Van Cholesterol in HDL [Mass/Vol] 70 mg/dL Critically high 40-60 [facility] Comment on above: Performed By: #### L IPID, T4, TSH, CMP ####[facility] [address] [id number]. Gautam Van Cholesterol in LDL [Mass/Vol] 104.2 mg/dL Normal [facility] Comment on above: Performed By: #### L IPID, T4, TSH, CMP ####[facility] [address] [id number]. Gautam Van Cholesterol.total/Chol esterol in HDL [Mass ratio] 2.6 {ratio} Normal [facility] Comment on above: Performed By: #### L IPID, T4, TSH, CMP ####[facility] [address] [id number]. Gautam Van HDL NORMAL > or = 60 mg/dl - LO W CARDIOVASCULAR RISK <40 mg/dl - HIGH CARDIOVASCULAR RISK Normal [facility] Comment on above: Performed By: #### L IPID, T4, TSH, CMP ####[facility] [address] [place] [id number]. Gautam Van LDL CALC NORMAL SEE BELOW Normal [facility] Comment on above: Result Comment: <100 mg/dl OPTIMAL 100 - 129 mg/dl NEAR OR ABOVE OPTIMAL 130 - 159 mg/dl BORDERLINE HIGH 160 - 189 mg/dl HIGH >190 mg/dl VERY HIGH Performed By: #### L IPID, T4, TSH, CMP ####[facility] [address] [id number]. Gautam Van Triglyceride [Mass/Vol] 44 mg/dL Normal <=150 [facility] Comment on above: Performed By: #### L IPID, T4, TSH, CMP ####[facility] [address] [place], [place] [address]CmDr. Gautam Van VLDL CALC 8.8 mg/dL Normal [facility] Comment on above: Performed By: #### L IPID, T4, TSH, CMP ####[facility] [address] [place], [place] [address]ZaDr. Gautam Van PROF 14(COMP METB)on 023 Albumin [Mass/Vol] 4.0 g/dL Normal 3.4-5.0 [facility] Comment on above: Performed By: #### L IPID, T4, TSH, CMP #### [facility] [address] [address] [address] Gautam Van Albumin/Globulin [Mass ratio] 1.2 {ratio} Normal [facility] Comment on above: Performed By: #### L IPID, T4, TSH, CMP #### [facility] [address] [address] [address] Gautam Van ALP [Catalytic activity/Vol] 104 U/L Normal 46-116 [facility] Comment on above: Performed By: #### L IPID, T4, TSH, CMP #### [facility] [address] [address] [address] Gautam Van ALT [Catalytic activity/Vol] 36 U/L Normal 16-63 [facility] Comment on above: Performed By: #### L IPID, T4, TSH, CMP #### [facility] [address] [address] [address] Gautam Van Anion gap [Moles/Vol] 9.8 mmol/L Normal [facility] Comment on above: Performed By: #### L IPID, T4, TSH, CMP #### [facility] [address] [address] [address] Gautam Van AST [Catalytic activity/Vol] 22 U/L Normal 15-37 [facility] Comment on above: Performed By: #### L IPID, T4, TSH, CMP #### [facility] [address] [address] [address] Gautam Van Bilirubin [Mass/Vol] 0.9 mg/dL Normal 0.2-1.0 [facility] Comment on above: Performed By: #### L IPID, T4, TSH, CMP #### [facility] [address] [place] [address] Dr. Gautam Van Calcium [Mass/Vol] 9.1 mg/dL Normal 8.5-10.1 [facility] Comment on above: Performed By: #### L IPID, T4, TSH, CMP #### [facility] [address] [place] [address] Dr. Gautam Van Chloride [Moles/Vol] 103 mmol/L Normal 98-107 [facility] Comment on above: Performed By: #### L IPID, T4, TSH, CMP #### [facility] [address] [place] [address] Dr. Gautam Van CO2 [Moles/Vol] 30.6 mmol/L Normal 21.0-32.0 [facility] Comment on above: Performed By: #### L IPID, T4, TSH, CMP #### [facility] [address] [place] [address] Dr. Gautam Van Creatinine [Mass/Vol] 0.81 mg/dL Normal 0.70-1.30 [facility] Comment on above: Performed By: #### L IPID, T4, TSH, CMP #### [facility] [address] [place] [address] Dr. Gautam Van EGFR-AF JORDANIAN >60 Normal >=60 [facility] [place] [facility] Comment on above: Performed By: #### L IPID, T4, TSH, CMP #### [facility] [address] [place] [address] Dr. Gautam Van EGFR-NON AF JORDANIAN >60 Normal >=60 [facility] Comment on above: Performed By: #### L IPID, T4, TSH, CMP #### [facility] [address] [place] [address] Dr. Gautam Van Globulin (S) [Mass/Vol] 3.3 g/dL Normal [facility] Comment on above: Performed By: #### L IPID, T4, TSH, CMP #### [facility] [address] [address] [address] Gautam Van Glucose [Mass/Vol] 103 mg/dL Normal 74-106 [facility] Comment on above: Performed By: #### L IPID, T4, TSH, CMP #### [facility] [address] [address] [address] Gautam Van Potassium [Moles/Vol] 4.4 mmol/L Normal 3.5-5.1 [facility] Comment on above: Performed By: #### L IPID, T4, TSH, CMP #### [facility] [address] [address] [address] Gautam Van Protein [Mass/Vol] 7.3 g/dL Normal 6.4-8.2 [facility] Comment on above: Performed By: #### L IPID, T4, TSH, CMP #### [facility] [address] [address] [address] Gautam Van Sodium [Moles/Vol] 139 mmol/L Normal 136-145 [facility] Comment on above: Performed By: #### L IPID, T4, TSH, CMP #### [facility] [address] [address] [address] Gautam Van Urea nitrogen [Mass/Vol] 16.0 mg/dL Normal 7.0-18.0 [facility] Comment on above: Performed By: #### L IPID, T4, TSH, CMP #### [facility] [address] [place] [address] Dr. Gautam Van Urea nitrogen/Creatinine [Mass ratio] 19.8 mg/mg Normal [facility] Comment on above: Performed By: #### L IPID, T4, TSH, CMP #### [facility] [address] [address] [address] Gautam Van T4on 12-27-2022 T4 [Mass/Vol] 9.10 ug/dL Normal 4.50-12.10 [facility] Comment on above: Performed By: #### L IPID, T4, TSH, CMP ####[facility] [address] [place], [place] [address]XdDr. Gautam Van TSHon 12-27-2022 TSH 1.043 uIU/mL Normal 0.358-3.74 0 [facility] Comment on above: Performed By: #### L IPID, T4, TSH, CMP #### [facility] [address] [place], [place] [address] FOOT RT WO CONon 11-18-19 CT FOOT RT WO CON EXAMINATION: CT FOOT RT WO CON, CT ANKLE RT WO CON HISTORY: Contusion COMPARISON: No relevant comparison available. TECHNIQUE: Multi-planar CT images were created without IV contrast. Dose reduction techniques were achieved by using automated exposure control and/or adjustment of mA and/or kV according to patient size and/or use of iterative reconstruction technique. FINDINGS: BONES: No acute fracture or dislocation of the ankle or foot. Corticated calcific density identified along the dorsal distal talus, a remote injury is favored. 2 mm corticated calcific density along the inferior lateral malleolus, remote injury favored Mild to moderate enthesopathic spurring of the calcaneus at the Achilles and plantar insertions. Moderate to severe degenerative changes with joint space narrowing marginal osteophyte formation first metatarsal-phalangeal joint. SOFT TISSUES: Mild diffuse soft tissue swelling EFFUSION: None visible. OTHER: Negative. IMPRESSION: Mild diffuse soft tissue swelling No acute fracture of the foot or ankle Electronically authenticated by: KIRSTIE DODD Date: 2022-11-17 08:57 Normal [facility] Basic metabolic 2000 panelon 10-17-2022 Anion gap [Moles/Vol] 9 mmol/L Normal 9-18 [facility] Comment on above: Order Comment: Speci men Type: BLOOD SPECIMEN Ordering Facility: [facility] Address: [address] [place] [address] Performed By: #### 1 9123-9, 40032-9 #### [facility] CLIA [id number] [facility] [place] [address] [place] Calcium [Mass/Vol] 9.4 mg/dL Normal 8.5-10.2 [facility] Comment on above: Order Comment: Speci men Type: BLOOD SPECIMEN Ordering Facility: [facility] Address: [address] [place] [address] Performed By: #### 1 9123-9, 02108-3 #### [facility] CLIA [id number] [address] [place] [address] [place] Chloride [Moles/Vol] 101 mmol/L Normal 97-105 [facility] Comment on above: Order Comment: Speci men Type: BLOOD SPECIMEN Ordering Facility: [facility] Address: [address] [place] [address] Performed By: #### 1 9123-9, 45268-3 #### [facility] CLIA [id number] [address] [place] [address] [place] CO2 [Moles/Vol] 30 mmol/L Normal 22-30 [facility] Comment on above: Order Comment: Speci men Type: BLOOD SPECIMEN Ordering Facility: [facility] Address: [address] [place] [address] Performed By: #### 1 9123-9, 25298-4 #### [facility] CLIA [id number] [address] [place] [address] [place] Creatinine [Mass/Vol] 1.01 mg/dL Normal 0.73-1.22 [facility] Comment on above: Order Comment: Speci men Type: BLOOD SPECIMEN Ordering Facility: [facility] Address: [address] [place] [address] Performed By: #### 1 9123-9, 36066-9 #### [facility] CLIA [id number] [address] [place], [place] [id number] [place] [address] [place] ESTIMATED GLOMERULAR FILTRATION RATE 84 mL/min/1.73m??? Normal >=60 [facility] Comment on above: Order Comment: Speci men Type: BLOOD SPECIMEN Ordering Facility: [facility] Address: [address] [place] [address] Result Comment: Kaylee mated Glomerular Filtration Rate (eGFR) is calculated using the 2020 CKD-EPI creatinine equation. This equation utilizes serum creatinine, sex, and age as parameters. The creatinine assay has traceable calibration to isotope dilution-mass spectrometry. Refer to KDIGO guidelines for clinical interpretation. In patients with unstable renal function, e.g. those with acute kidney injury, the eGFR may not accurately reflect actual GFR. Performed By: #### 1 9123-9, 45985-6 #### [facility] CLIA [id number] [address] [place] [address] [place] Glucose [Mass/Vol] 92 mg/dL Normal 74-99 [facility] Comment on above: Order Comment: Geovanny smiley Type: BLOOD SPECIMEN Ordering Facility: [facility] Address: [address] [address] Result Comment: The [place] Diabetes Association (ADA) provides guidance for cutoff values for fasting glucose and random glucose. The ADA defines fasting as no caloric intake for at least 8 hours. Fasting plasma glucose results between 100 to 125 mg/dL indicate increased risk for diabetes (prediabetes). Fasting plasma glucose results greater than or equal to 126 mg/dL meet the criteria for diagnosis of diabetes. In the absence of unequivocal hyperglycemia, results should be confirmed by repeat testing. In a patient with classic symptoms of hyperglycemia or hyperglycemic crisis, random plasma glucose results greater than or equal to 200 mg/dL meet the criteria for diagnosis of diabetes. Reference: Standards of Medical Care in Diabetes 2016, [place] Diabetes Association. Diabetes Care. 2016.39(Suppl 1). Performed By: #### 1 9123-9, 31386-3 #### [facility] CLIA [id number] [address] [place] [address] [place] Potassium [Moles/Vol] 4.4 mmol/L Normal 3.7-5.1 [facility] Comment on above: Order Comment: Geovanny smiley Type: BLOOD SPECIMEN Ordering Facility: [facility] Address: [address] [address] Performed By: #### 1 9123-9, 28607-9 #### [facility] CLIA [id number] [address] [place] [address] [place] Sodium [Moles/Vol] 140 mmol/L Normal 136-144 [facility] Comment on above: Order Comment: Geovanny smiley Type: BLOOD SPECIMEN Ordering Facility: [facility] Address: [address] [place] [address] Performed By: #### 1 9123-9, 67086-0 #### [facility] CLIA [id number] [address] [place] [address] [place] Urea nitrogen [Mass/Vol] 22 mg/dL Normal 9-24 [facility] Comment on above: Order Comment: Speci men Type: BLOOD SPECIMEN Ordering Facility: [facility] Address: [address] [place] [address] Performed By: #### 1 9123-9, 06177-1 #### [facility] CLIA [id number] [address] [place] [address] [place] Anion gap [Moles/Vol] 9 mmol/L 9 - 18 mmol/L [facility] Calcium [Mass/Vol] 9.4 mg/dL 8.5 - 10. 2 mg/dL [facility] Chloride [Moles/Vol] 101 mmol/L 97 - 10 5 mmol/L [facility] CO2 [Moles/Vol] 30 mmol/L 22 - 30 mmol/L [facility] Creatinine [Mass/Vol] 1.01 mg/dL 0.73 - 1.22 mg/dL [facility] Estimated Glomerular Filtration Rate 84 mL/min/1.73m >=60 mL/min/1.7 3m [facility] Glucose [Mass/Vol] 92 mg/dL 74 - 99 mg/dL [facility] Potassium [Moles/Vol] 4.4 mmol/L 3.7 - 5.1 mmol/L [facility] Sodium [Moles/Vol] 140 mmol/L 136 - 144 mmol/L [facility] Urea nitrogen [Mass/Vol] 22 mg/dL 9 - 24 mg/dL [facility] MAGNESIUM BLDon 10-17-2022 Magnesium [Mass/Vol] 2.1 mg/dL 1.7 - 2 .3 mg/dL [facility] Magnesium SerPl-mCncon 10-17 Magnesium [Mass/Vol] 2.1 mg/dL Normal 1.7-2.3 [facility] Comment on above: Order Comment: Speci men Type: BLOOD SPECIMEN Ordering Facility: [facility] Address: [address] [place] [address] Performed By: #### 1 9123-9, 65924-7 #### [facility] CLIA [id number] [address] [facility] [place] [address] [place] XR ANKLE RT MIN 3 VIEWSon XR ANKLE RT MIN 3 VIEWS EXAM: XR ANKLE RT MIN 3 VIEWS HISTORY: Ankle injury. COMPARISON: None. TECHNIQUE: AP, mortise and lateral views of the right ankle performed. FINDINGS: The bony alignment is anatomic and the osseous mineralization is within normal limits. There is no fracture. There is a small ossicle inferior to the fibula and the medial malleolus which are chronic. There is a 0.8 cm chronic ossicle superior to the talonavicular articulation and a chronic focus of hypertrophic bone along the dorsal aspect of the talar neck. There are small enthesophytes at the calcaneal attachment of the Achilles tendon and the plantar fascia. There is also vague linear mineralization within the distal Achilles tendon. The plafond and talar dome are smoothly marginated. There is no osteochondral injury along the talar dome. The ankle mortise is anatomic. There is soft tissue swelling along the anterior aspect of the ankle. IMPRESSION: There is no acute fracture or malalignment. There is soft tissue swelling along the anterior aspect of the ankle. Electronically authenticated by: DIANE MENEZES Date: 2022-10-09 07:38 Normal [facility] ARRHYTHMIA TRANS TELE MEASUR James 06-10-2022 Measure SD Interval 179 [facility] MEASURE QRS Interval 60 [facility] MEASURE QT Interval 326 [facility] MEASURE RR INTERVAL MAX 78.86 [facility] Symptoms routine [facility] ARRHYTHMIA TRANS TELE MEASUR James 05-06-2022 Arrhythmia-Activity tried a couple diffe rent times [facility] Measure SD Interval [facility] MEASURE Q[facility] Interval 80 [facility] Interval 332 [facility] MEASURE RR INTERVAL MAX 91.21 [facility] Symptoms routine [facility] ARRHYTHMIA TRANS TELE MEASUR James 04-22-2022 Measure SD Interval 134 [facility] MEASURE QRS Interval 91 [facility] MEASURE QT Interval 396 [facility] MEASURE RR INTERVAL MAX 81.74 [facility] Symptoms routine [facility] ARRHYTHMIA TRANS TELE MEASUR James 04-04-2022 Measure SD Interval 201 [facility] MEASURE QRS Interval 84 [facility] MEASURE QT Interval 362 [facility] MEASURE RR INTERVAL MAX 82.87 [facility] Symptoms routine [facility] CREATININE, BLOOD (POC)on Creatinine [Mass/Vol] 0.90 mg/dL 0.7 - 1.4 mg/dL [facility] GFR/1.73 sq M.predicted among non-blacks MDRD (S/P/Bld) [Vol rate/Area] mL/min/{1.73_m2} [facility] CT PULMONARY VEIN W IVCONon 03-22-2022 Radiology Result ACTIONABLE Abnormal [facility] ARRHYTHMIA TRANS TELE MEASUR James 03-19-2022 Measure SD Interval 164 [facility] MEASURE QRS Interval 97 [facility] MEASURE QT Interval 362 [facility] MEASURE RR INTERVAL MAX 75.85 [facility] Symptoms routine - BP is elev ated, pt. feeling palpitaions when lying down, tired-3-5 day [facility] ARRHYTHMIA TRANS TELE MEASUR James 03-13-2022 Measure SD Interval 164 [facility] MEASURE QRS Interval 107 [facility] MEASURE QT Interval 450 [facility] MEASURE RR INTERVAL MAX 75.85 [facility] Symptoms routine [facility] ARRHYTHMIA TRANS TELE MEASUR James 03-04-2022 Measure SD Interval 141 [facility] MEASURE QRS Interval 60 [facility] MEASURE QT Interval 318 [facility] MEASURE RR INTERVAL MAX 77.16 [facility] Symptoms routine [facility] ARRHYTHMIA TRANS TELE MEASUR James 02-18-2022 Measure SD Interval 130 [facility] MEASURE QRS Interval 60 [facility] MEASURE QT Interval 450 [facility] MEASURE RR INTERVAL MAX 70.82 [facility] Symptoms routine [facility] ARRHYTHMIA TRANS TELE MEASUR James 02-12-2022 Measure SD Interval 130 [facility] MEASURE QRS Interval 60 [facility] MEASURE QT Interval 450 [facility] MEASURE RR INTERVAL MAX 71.95 [facility] Symptoms routine [facility] ARRHYTHMIA TRANS TELE MEASUR James 02-08-2022 Measure SD Interval 130 [facility] MEASURE QRS Interval 60 [facility] Interval 362 [facility] MEASURE RR INTERVAL MAX 72.53 [facility] Symptoms routine [facility] ARRHYTHMIA TRANS TELE MEASUR James 02-04-2022 Measure SD Interval 130 [facility] MEASURE QRS Interval 60 [facility] MEASURE QT Interval [facility] MEASURE RR INTERVAL MAX 67.8 [facility] Symptoms routine [facility] ARRHYTHMIA TRANS TELE MEASUR James 01-28-2022 Measure SD Interval [facility] MEASURE QRS Interval 60 [facility] MEASURE QT Interval 382 [facility] MEASURE RR INTERVAL MAX 71.89 [facility] Symptoms routine [facility] ARRHYTHMIA TRANS TELE MEASUR James 01-22-2022 Measure SD Interval [facility] MEASURE QRS Interval 60 [facility] MEASURE QT Interval 328 [facility] MEASURE RR INTERVAL MAX 77.83 [facility] Symptoms routine [facility] ARRHYTHMIA TRANS TELE MEASUR James 01-18-2022 Measure SD Interval [facility] MEASURE QRS Interval 60 [facility] MEASURE QT Interval 450 [facility] MEASURE RR INTERVAL MAX 79.56 [facility] Symptoms routine [facility] ARRHYTHMIA TRANS TELE MEASUR James 01-14-2022 Measure SD Interval 130 [facility] MEASURE QRS Interval 60 [facility] MEASURE QT Interval 348 [facility] MEASURE RR INTERVAL MAX 66.79 [facility] Symptoms Routine [facility] ARRHYTHMIA TRANS TELE MEASUR James 01-07-2022 Measure SD Interval 173 [facility] MEASURE QRS Interval 76 [facility] MEASURE QT Interval 389 [facility] MEASURE RR INTERVAL MAX 68.15 [facility] Symptoms routine [facility] ARRHYTHMIA TRANS TELE MEASUR James 12-17-2021 Measure SD Interval 186 [facility] MEASURE QRS Interval 80 [facility] MEASURE QT Interval 369 [facility] MEASURE RR INTERVAL MAX 74.32 [facility] Symptoms routine [facility] ARRHYTHMIA TRANS TELE MEASUR James 12-11-2021 Measure SD Interval [facility] MEASURE QRS Interval 60 [facility] MEASURE QT Interval 345 [facility] MEASURE RR INTERVAL MAX 73.06 [facility] Symptoms baseline [facility] ARRHYTHMIA TRANS TELE MEASUR James 12-04-2021 Measure SD Interval 191 [facility] MEASURE QRS Interval 97 [facility] MEASURE QT Interval [facility] MEASURE RR INTERVAL MAX 70.75 [facility] Symptoms baseline [facility] Tobacco Screening.on 022 Tobacco use status [facility] b) No -[facility] [address] DO Work Phone: No Panel Informationon 08-29 27.0\S\27.0 Normal 22.0-30.0 [facility] [address] DO Work Phone: Comment on above: PERFORMED BY:[facility] [place], [place] [id number] MEDICAL DIRECTORADEEL LOPES M.D. 99\S\99 Normal 95-114 [facility] [address] DO Work Phone: 3.8\S\3.8 Normal 3.5-5.1 [facility] [address] DO Work Phone: 139\S\139 Normal 136-146 [facility] [place] [address] DO Work Phone: IO EKG Electrocardiogram- 12 Leadon 06-26-2021 IO EKG Electrocardiogram- 12 Lead See Scanned Document [facility] [address] DO Work Phone: Office Visit (Cardiology)on 06-26-2021 Follow-up visit Diagnoses/Problems Assessed Essential hypertension (401.9) (I10) Hyperlipidemia (272.4) (E78.5) Palpitations (785.1) (R00.2) Paroxysmal atrial fibrillation (427.31) (I48.0) Sleep apnea (780.57) (G47.30) Dyspnea (786.09) (R06.00) Chest pain (786.50) (R07.9) Non-smoker (V49.89) (Z78.9) Overweight with body mass index (BMI) of 27 to 27.9 in adult (278.02,V85.23) (E66.3,Z68.27) Orders Overweight with body mass index (BMI) of 27 to 27.9 in adult Healthy Weight Tips; Status:Complete - Retrospective Authorization; Done: 26Jun2021 Paroxysmal atrial fibrillation Cardiology - Electrophysiology Referral Evaluation and Treatment Evaluate AND Treat; atrial fib ablation Status: Hold For - Scheduling,Retrospective Authorization Requested for: 26Jun2021 Cardioversion; Status:Active; Requested for:26Jun2021; IO EKG Electrocardiogram- 12 Lead; Status:Complete - Retrospective Authorization; Done: 26Jun2021 01:31PM SocHx: Non-smoker Tobacco Use Screening; Status:Complete; Done: 26Jun2021 follow up after testing continue current medications Patient Instructions By signing my name below, I, Diallo Crain LPNibe, attest that this documentation has been prepared under the direction and in the presence of Dr. Tera Davison MD. All medical record entries made by the Scribe were at my direction and personally dictated by me. I have reviewed the chart and agree that the record accurately reflects my personal performance of the history, physical exam, discussion and plan. Please bring all medicines, vitamins, and herbal supplements with you when you come to the office. Prescriptions will not be filled unless you are compliant with your follow up appointments or have a follow up appointment scheduled as per instruction of your physician. Refills should be requested at the time of your visit. Chief Complaint DARIUS VALERA is being seen for a 6 month follow-up of. History of Present Illness Here for follow-up and management for paroxysmal atrial fibrillation, hypertension, hyperlipidemia and obesity. Since last time I saw him he reports symptoms of palpitation. He denies lightheadedness, dizziness or syncope. He did an episode of atrial fibrillation remotely. He was placed on sotalol and converted spontaneously to normal sinus rhythm. He has been in sinus for several years. He denies any other complaint is quite functional class I. ASSESSMENT: 1. And atrial fibrillation with recurrence. This is the first recurrence since he was placed on sotalol 1. Hypertension, controlled 2. hyperlipidemia, mild, addressed with dietary modification. 3. Mild obesity 4. Intermittent episodes of chest pain appears to be primarily due to atrial fibrillation his recent stress test is negative 5. Edema due to Procardia. Resolved 6. 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 Patient had mild edema 7. Long-term anticoagulation tolerating that well Plan 1. Management options reviewed with patient. We discussed proceeding with cardioversion increasing his sotalol and ablation. Following lengthy discussion and considering his been in sinus for several years on current dose. Elected to proceed with cardioversion in evaluation on outpatient basis for ablation will notify me with which hospital he would prefer to go to. 2. I advised him to buy a TouchPaldia monitor to allow us for better assessing the etiology of his palpitation 3. Risk, benefit and alternative anticoagulation and sotalol reviewed with patient at length he understood and agreed 4. Arrangements for cardioversion will be made Surgical History Problems History of Complete colonoscopy 08/2009 Current Meds Medication NameInstruction Eliquis 5 MG Oral TabletTake 1 tablet twice daily Furosemide 40 MG Oral TabletTAKE 1 TABLET DAILY. NIFEdipine ER 30 MG Oral Tablet Extended Release 24 HourTake 1 tablet twice daily Potassium Chloride 20 MEQ TBCRTAKE 1 TABLET DAILY. Sotalol HCl - 80 MG Oral TabletTAKE 1 TABLET TWICE DAILY. Valsartan-hydroCHLOROthiaz ashleigh 320-25 MG Oral TabletTAKE 1 TABLET DAILY. Allergies Medication No Known Drug Allergies Recorded By: Torri Maradiaga; 06/23/2021 9:50:26 AM Social History Problems Caffeine use (V49.89) (Z78.9) COFFEE ONCE IN A WHILE Consumes alcohol occasionally (V49.89) (Z78.9) Never a smoker No illicit drug use Non-smoker (V49.89) (Z78.9) Review of Systems Constitutional: not feeling tired. Cardiovascular: palpitations, but no intermittent leg claudication and as noted in HPI. Respiratory: no cough and no shortness of breath. Gastrointestinal: no change in bowel habits and no blood in stools. Integumentary: no skin rashes. Neurological: no seizures and no frequent falls. All other systems have been reviewed and are negative for complaint. Vitals Vital Signs Recorded: 26Jun2021 01:28PMRecorded: 26Jun2021 01:06PM [id number], RUE, Xttsdwc670, LUE, Sitting [id number], R (more content not included)... Normal viseto Tobacco Screening.on 021 Fall risk assessment a) No falls within the last year [facility] [address] DO Work Phone: Tobacco use status [facility] b) No [facility] [address] DO Work Phone: CREATININEon 09-05-2020 Creatinine [Mass/Vol] 0.91 mg/dL Normal 0.50 - 1.30 [facility] Comment on above: Performed By: #### C REAT #### [address] [id number] GFR- AM. >60 Normal >60 [facility] [place] Comment on above: Result Comment: CALC ULATIONS OF ESTIMATED GFR ARE PERFORMED USING THE MDRD STUDY EQUATION FOR THE IDMS-TRACEABLE CREATININE METHODS. CLIN CHEM 2007;53:766-72 Performed By: #### C REAT #### [address] [id number] GFR-NON AM. >60 Normal >60 [facility] Comment on above: Performed By: #### C REAT #### [address] [id number] ELECTROLYTE PANELon 09-05-19 Anion gap [Moles/Vol] 12 mmol/L Normal 10 - 20 [facility] Comment on above: Performed By: #### E LECT #### [address] [id number] Chloride [Moles/Vol] 100 mmol/L Normal 98 - 107 [facility] Comment on above: Performed By: #### E LECT #### [address] [id number] HCO3 (Bld) [Moles/Vol] 31 mmol/L Normal 21 - 32 [facility] Comment on above: Performed By: #### E LECT #### [address] [id number] Potassium [Moles/Vol] 3.9 mmol/L Normal 3.5 - 5.3 [facility] Comment on above: Performed By: #### E LECT #### [address] [id number] Sodium [Moles/Vol] 139 mmol/L Normal 136 - 145 [facility] Comment on above: Performed By: #### E LECT #### [address] [id number] UREA NITROGENon 09-05-2020 Urea nitrogen [Mass/Vol] 19 mg/dL Normal 6 - 23 [facility] Comment on above: Performed By: #### U TRIP #### [address] [id number] Vital Signs Date Time Vital Sign Value Performing Clinician Facility 04-04-2025 14:32-0400 Body height 182.9 cm Bill Tuttle MD Work Phone: [facility] 04-04-2025 14:32-0400 Body mass index (BMI) [Ratio] 26.49 kg/m2 Bill Tuttle MD Work Phone: [facility] 04-04-2025 14:32-0400 Body weight 88.6 kg Bill Tuttle MD Work Phone: [facility] 04-04-2025 14:32-0400 Diastolic blood pressure 88 mm[Hg] Bill Tuttle MD Work Phone: [facility] 04-04-2025 14:32-0400 Heart rate 76 /min Bill Tuttle MD Work Phone: [facility] 04-04-2025 14:32-0400 Systolic blood pressure 132 mm[Hg] Bill Tuttle MD Work Phone: [facility] 03-04-2025 14:53-0400 Body height 182.88 cm Linda Keys [employer] WORKER[employer]C Work Phone: [facility] 03-04-2025 14:53-0400 Body mass index (BMI) [Ratio] 26.9 kg/m2 Linda Keys [employer] WORKER-C Work Phone: [facility] 03-04-2025 14:53-0400 Body temperature 97.7 [degF] Linda Hemmer [employer] WORKER-C Work Phone: [facility] 03-04-2025 14:53-0400 Body weight 90.26 kg Linda Hemjhonatan [employer] WORKER-C Work Phone: [facility] 03-04-2025 14:53-0400 Diastolic blood pressure 79 mm[Hg] Linda Keys [employer] WORKER[employer]C Work Phone: [facility] 03-04-2025 14:53-0400 Heart rate 65 /min Linda Keys [employer] WORKER-C Work Phone: [facility] 03-04-2025 14:53-0400 Respiratory rate 18 /min Linda Hemmer [employer] WORKER[employer]C Work Phone: [facility] 03-04-2025 14:53-0400 SaO2% (BldA) [Mass fraction] 98 % Linda Hemmer [employer] WORKER-C Work Phone: [facility] 03-04-2025 14:53-0400 Systolic blood pressure 152 mm[Hg] Linda Hemmer [employer] WORKER-C Work Phone: [facility] 03-01-2025 09:26-0400 Body height 182.9 cm Linda Hemmer PA Work Phone: [facility] 03-01-2025 09:26-0400 Body mass index (BMI) [Ratio] 27.04 kg/m2 Linda Hemmer PA Work Phone: [facility] 03-01-2025 09:26-0400 Body weight 90.45 kg Linda Hemmer PA Work Phone: [facility] 03-01-2025 09:26-0400 Diastolic blood pressure 84 mm[Hg] Linda Hemmer PA Work Phone: [facility] 03-01-2025 09:26-0400 Heart rate 72 /min Linda Hemmer PA Work Phone: [facility] 03-01-2025 09:26-0400 Respiratory rate 16 /min Linda Hemmer PA Work Phone: [facility] 03-01-2025 09:26-0400 SaO2% (BldA) [Mass fraction] 98 % Linda Hemmer PA Work Phone: [facility] 03-01-2025 09:26-0400 Systolic blood pressure 132 mm[Hg] Linda Hemmer PA Work Phone: [facility] 02-19-2025 09:35-0400 Body height 182.88 cm [facility] 02-19-2025 09:35-0400 Body mass index (BMI) [Ratio] 27.3 kg/m2 [facility] 02-19-2025 09:35-0400 Body temperature 98.7 [degF] [facility] 02-19-2025 09:35-0400 Body weight 91.28 kg [facility] 02-19-2025 09:35-0400 Diastolic blood pressure 74 mm[Hg] [facility] 02-19-2025 09:35-0400 Heart rate 73 /min [facility] 02-19-2025 09:35-0400 Respiratory rate 18 /min [facility] 02-19-2025 09:35-0400 SaO2% (BldA) [Mass fraction] 97 % [facility] 02-19-2025 09:35-0400 Systolic blood pressure 124 mm[Hg] [facility] 02-10-2025 10:48-0400 Diastolic blood pressure 91 mm[Hg] [facility] 02-10-2025 10:48-0400 Heart rate 77 /min [facility] 02-10-2025 10:48-0400 Respiratory rate 18 /min [facility] 02-10-2025 10:48-0400 SaO2% (BldA) [Mass fraction] 100 % [facility] 02-10-2025 10:48-0400 Systolic blood pressure 150 mm[Hg] [facility] 02-10-2025 09:16-0400 Body height 182.88 cm [facility] 02-10-2025 09:16-0400 Body weight 90.71 kg [facility] 01-21-2025 15:04-0400 Body height 182.88 cm [facility] 01-21-2025 15:04-0400 Body mass index (BMI) [Ratio] 27.9 kg/m2 [facility] 01-21-2025 15:04-0400 Body temperature 98.2 [degF] [facility] 01-21-2025 15:04-0400 Body weight 93.44 kg [facility] 01-21-2025 15:04-0400 Diastolic blood pressure 89 mm[Hg] [facility] 01-21-2025 15:04-0400 Heart rate 62 /min [facility] 01-21-2025 15:04-0400 Respiratory rate 18 /min [facility] 01-21-2025 15:04-0400 SaO2% (BldA) [Mass fraction] 98 % [facility] 01-21-2025 15:04-0400 Systolic blood pressure 160 mm[Hg] [facility] 12-09-2024 15:34-0400 Body height 182.9 cm Eulalio Irby DO Work Phone: [facility] 12-09-2024 15:34-0400 Body mass index (BMI) [Ratio] 28.21 kg/m2 Eulalio Brown DO Work Phone: [facility] 12-09-2024 15:34-0400 Body weight 94.35 kg Eulalio Brown DO Work Phone: [facility] 09-30-2024 15:52-0500 Body height 182.9 cm Eulalio Brown DO Work Phone: [facility] 09-30-2024 15:52-0500 Body mass index (BMI) [Ratio] 28.35 kg/m2 Eulalio Brown DO Work Phone: [facility] 09-30-2024 15:52-0500 Body temperature 97.39 [degF] Eulalio Brown DO Work Phone: [facility] 09-30-2024 15:52-0500 Body weight 94.8 kg Eulalio Brown DO Work Phone: [facility] 09-21-2024 16:43-0500 Body height 182.9 cm Tony Ebbitt PA-C Work Phone: [facility] 09-21-2024 16:43-0500 Body mass index (BMI) [Ratio] 27.81 kg/m2 Tony Ebbitt PA-C Work Phone: [facility] 09-21-2024 16:43-0500 Body weight 93 kg Tony Ebbitt PA-C Work Phone: [facility] 09-21-2024 16:43-0500 Diastolic blood pressure 82 mm[Hg] Tony Ebbitt PA-C Work Phone: [facility] 09-21-2024 16:43-0500 Systolic blood pressure 142 mm[Hg] Tony Ebbitt PA-C Work Phone: [facility] 09-15-2024 15:28-0500 Body height 182.9 cm Linda Hemmer PA Work Phone: [facility] 09-15-2024 15:28-0500 Body mass index (BMI) [Ratio] 28.4 kg/m2 Linda Hemmer PA Work Phone: [facility] 09-15-2024 15:28-0500 Body temperature 97.7 [degF] Linda Hemmer PA Work Phone: [facility] 09-15-2024 15:28-0500 Body weight 94.98 kg Linda Hemmer PA Work Phone: [facility] 09-15-2024 15:28-0500 Diastolic blood pressure 78 mm[Hg] Linda Hemmer PA Work Phone: [facility] 09-15-2024 15:28-0500 Heart rate 64 /min Linda Hemmer PA Work Phone: [facility] 09-15-2024 15:28-0500 Respiratory rate 16 /min Linda Hemmer PA Work Phone: [facility] 09-15-2024 15:28-0500 SaO2% (BldA) [Mass fraction] 98 % Linda Hemmer PA Work Phone: [facility] 09-15-2024 15:28-0500 Systolic blood pressure 124 mm[Hg] Linda Hemmer PA Work Phone: [facility] 08-24-2024 11:04-0500 Body height 182.9 cm Eulalio Irby DO Work Phone: [facility] 08-24-2024 11:04-0500 Body mass index (BMI) [Ratio] 27.4 kg/m2 Eulalio Brown DO Work Phone: [facility] 08-24-2024 11:04-0500 Body temperature 97.39 [degF] Eulailo Brown DO Work Phone: [facility] 08-24-2024 11:04-0500 Body weight 91.63 kg Eulalio Brown DO Work Phone: [facility] 08-06-2024 15:24-0500 Body height 182.88 cm Sedrick Ye MD Work Phone: [facility] 08-06-2024 15:24-0500 Body weight 92.98 kg Sedrick Ye MD Work Phone: [facility] 07-27-2024 15:52-0500 Body height 182.9 cm Eulalio Brown DO Work Phone: [facility] 07-27-2024 15:52-0500 Body mass index (BMI) [Ratio] 27.4 kg/m2 Eulalio Brown DO Work Phone: [facility] 07-27-2024 15:52-0500 Body weight 91.63 kg Eulalio Brown DO Work Phone: [facility] 06-15-2024 15:49-0400 Body height 182.9 cm Eulalio Brown DO Work Phone: [facility] 06-15-2024 15:49-0400 Body mass index (BMI) [Ratio] 27.4 kg/m2 Eulalio Brown DO Work Phone: [facility] 06-15-2024 15:49-0400 Body weight 91.63 kg Eulalio Brown DO Work Phone: [facility] 06-11-2024 09:58-0400 Body height 182.9 cm Grace Haque MD Work Phone: [facility] 06-11-2024 09:58-0400 Body mass index (BMI) [Ratio] 27.4 kg/m2 Grace Haque MD Work Phone: [facility] 06-11-2024 09:58-0400 Body weight 91.63 kg Grace Haque MD Work Phone: [facility] 06-10-2024 16:21-0400 Body height 182.9 cm Sedrick Lyons PRECISION LAYOUT WORKER Work Phone: [facility] 06-10-2024 16:21-0400 Body mass index (BMI) [Ratio] 27.4 kg/m2 Sedrick Lyons PRECISION LAYOUT WORKER Work Phone: [facility] 06-10-2024 16:21-0400 Body weight 91.63 kg Sedrick Lyons PRECISION LAYOUT WORKER Work Phone: [facility] 06-10-2024 16:21-0400 Diastolic blood pressure 84 mm[Hg] Sedrick Lyons PRECISION LAYOUT WORKER Work Phone: [facility] 06-10-2024 16:21-0400 Heart rate 67 /min Sedrick Lyons PRECISION LAYOUT WORKER Work Phone: [facility] 06-10-2024 16:21-0400 SaO2% (BldA) [Mass fraction] 98 % Sedrick Lyons PRECISION LAYOUT WORKER Work Phone: [facility] 06-10-2024 16:21-0400 Systolic blood pressure 134 mm[Hg] Sedrick Lyons PRECISION LAYOUT WORKER Work Phone: [facility] 05-21-2024 09:21-0400 Body height 182.9 cm Grace Haque MD Work Phone: [facility] 05-21-2024 09:21-0400 Body mass index (BMI) [Ratio] 27.12 kg/m2 Grace Haque MD Work Phone: [facility] 05-21-2024 09:21-0400 Body weight 90.72 kg Grace Haque MD Work Phone: [facility] 05-21-2024 09:21-0400 Diastolic blood pressure 80 mm[Hg] Grace Haque MD Work Phone: [facility] 05-21-2024 09:21-0400 Systolic blood pressure 120 mm[Hg] Grace Haque MD Work Phone: [facility] 04-23-2024 14:57-0400 Body height 182.88 cm MD Sedrick Ye Work Phone: [facility] 04-23-2024 14:57-0400 Body mass index (BMI) [Ratio] 26.7 kg/m2 MD Sedrick Ye Work Phone: [facility] 04-23-2024 14:57-0400 Body temperature 97.3 [degF] MD Sedrick Ye Work Phone: [facility] 04-23-2024 14:57-0400 Body weight 89.35 kg MD Sedrick Ye Work Phone: [facility] 04-23-2024 14:57-0400 Diastolic blood pressure 83 mm[Hg] MD Sedrick Ye Work Phone: [facility] 04-23-2024 14:57-0400 Heart rate 62 /min MD Sedrick Ye Work Phone: [facility] 04-23-2024 14:57-0400 Respiratory rate 16 /min MD Sedrick Ye Work Phone: [facility] 04-23-2024 14:57-0400 SaO2% (BldA) [Mass fraction] 97 % MD Sedrick Ye Work Phone: [facility] 04-23-2024 14:57-0400 Systolic blood pressure 153 mm[Hg] MD Sedrick Ye Work Phone: [facility] 01-30-2024 14:12-0400 Body height 182.9 cm Bill Tuttle MD Work Phone: [facility] 01-30-2024 14:12-0400 Body mass index (BMI) [Ratio] 27.69 kg/m2 Bill Tuttle MD Work Phone: [facility] 01-30-2024 14:12-0400 Body weight 92.6 kg Bill Tuttle MD Work Phone: [facility] 01-30-2024 14:12-0400 Diastolic blood pressure 80 mm[Hg] Bill Tuttle MD Work Phone: [facility] 01-30-2024 14:12-0400 Heart rate 66 /min Bill Tuttle MD Work Phone: [facility] 01-30-2024 14:12-0400 SaO2% (BldA) [Mass fraction] 97 % Bill Tuttle MD Work Phone: [facility] 01-30-2024 14:12-0400 Systolic blood pressure 148 mm[Hg] Bill Tuttle MD Work Phone: [facility] 01-23-2024 14:01-0400 Body height 182.88 cm MD Sedrick Ye Work Phone: [facility] 01-23-2024 14:01-0400 Body mass index (BMI) [Ratio] 27.5 kg/m2 MD Sedrick Ye Work Phone: [facility] 01-23-2024 14:01-0400 Body temperature 98.4 [degF] MD Sedrick Ye Work Phone: [facility] 01-23-2024 14:01-0400 Body weight 92.07 kg MD Sedrick Ye Work Phone: [facility] 01-23-2024 14:01-0400 Diastolic blood pressure 81 mm[Hg] MD Sedrick Ye Work Phone: [facility] 01-23-2024 14:01-0400 Heart rate 71 /min MD Sedrick Ye Work Phone: [facility] 01-23-2024 14:01-0400 Respiratory rate 20 /min MD Sedrick Ye Work Phone: [facility] 01-23-2024 14:01-0400 SaO2% (BldA) [Mass fraction] 99 % MD Sedrick Ye Work Phone: [facility] 01-23-2024 14:01-0400 Systolic blood pressure 160 mm[Hg] MD Sedrick Ye Work Phone: [facility] 07-31-2023 13:23-0500 Body height 182.9 cm Bill Tuttle MD Work Phone: [facility] 07-31-2023 13:23-0500 Body weight 88.91 kg Bill Tuttle MD Work Phone: [facility] 07-31-2023 13:23-0500 Diastolic blood pressure 88 mm[Hg] Bill Tuttle MD Work Phone: [facility] 07-31-2023 13:23-0500 Heart rate 71 /min Bill Tuttle MD Work Phone: [facility] 07-31-2023 13:23-0500 Systolic blood pressure 154 mm[Hg] Bill Tuttle MD Work Phone: [facility] 12-25-2022 14:11-0400 Body height 182.9 cm Bill Tuttle MD Work Phone: [facility] 12-25-2022 14:11-0400 Body weight 90.72 kg Bill Tuttle MD Work Phone: [facility] 12-25-2022 14:11-0400 Diastolic blood pressure 82 mm[Hg] Bill Tuttle MD Work Phone: [facility] 12-25-2022 14:11-0400 Systolic blood pressure 152 mm[Hg] Bill Tuttle MD Work Phone: [facility] 10-17-2022 15:10-0500 Body height 182.9 cm Bill Tuttle MD Work Phone: [facility] 10-17-2022 15:10-0500 Body weight 91.63 kg Bill Tuttle MD Work Phone: [facility] 10-17-2022 15:10-0500 Diastolic blood pressure 88 mm[Hg] Bill Tuttle MD Work Phone: [facility] 10-17-2022 15:10-0500 Heart rate 75 /min Bill Tuttle MD Work Phone: [facility] 10-17-2022 15:10-0500 SaO2% (BldA) [Mass fraction] 98 % Bill Tuttle MD Work Phone: [facility] 10-17-2022 15:10-0500 Systolic blood pressure 148 mm[Hg] Bill Tuttle MD Work Phone: [facility] 09-13-2022 15:12-0500 Body height 182.9 cm Bill Tuttle MD Work Phone: [facility] 09-13-2022 15:12-0500 Body weight 92.53 kg Bill Tuttle MD Work Phone: [facility] 09-13-2022 15:12-0500 Diastolic blood pressure 82 mm[Hg] Bill Tuttle MD Work Phone: [facility] 09-13-2022 15:12-0500 Heart rate 79 /min Bill Tuttle MD Work Phone: [facility] 09-13-2022 15:12-0500 SaO2% (BldA) [Mass fraction] 98 % Bill Tuttle MD Work Phone: [facility] 09-13-2022 15:12-0500 Systolic blood pressure 140 mm[Hg] Bill Tuttle MD Work Phone: [facility] 08-01-2022 13:49-0500 Diastolic blood pressure 95 mm[Hg] Hiren Sena MD Work Phone: [facility] 08-01-2022 13:49-0500 Heart rate 75 /min Hiren Sena MD Work Phone: [facility] 08-01-2022 13:49-0500 SaO2% (BldA) [Mass fraction] 97 % Hiren Sena MD Work Phone: [facility] 08-01-2022 13:49-0500 Systolic blood pressure 149 mm[Hg] Hiren Sena MD Work Phone: [facility] 05-10-2022 15:10-0400 Body weight 89.58 kg Bill Tuttle MD Work Phone: [facility] 05-10-2022 15:10-0400 Diastolic blood pressure 80 mm[Hg] Bill Tuttle MD Work Phone: [facility] 05-10-2022 15:10-0400 Heart rate 72 /min Bill Tuttle MD Work Phone: [facility] 05-10-2022 15:10-0400 SaO2% (BldA) [Mass fraction] 98 % Bill Tuttle MD Work Phone: [facility] 05-10-2022 15:10-0400 Systolic blood pressure 128 mm[Hg] Bill Tuttle MD Work Phone: [facility] 03-28-2022 14:44-0400 Body height 182.9 cm Bill Tuttle MD Work Phone: [facility] 03-28-2022 14:44-0400 Body weight 88.45 kg Bill Tuttle MD Work Phone: [facility] 03-28-2022 14:44-0400 Diastolic blood pressure 82 mm[Hg] Bill Tuttle MD Work Phone: [facility] 03-28-2022 14:44-0400 Heart rate 70 /min Bill Tuttle MD Work Phone: [facility] 03-28-2022 14:44-0400 Respiratory rate 18 /min Bill Tuttle MD Work Phone: [facility] 03-28-2022 14:44-0400 SaO2% (BldA) [Mass fraction] 98 % Bill Tuttle MD Work Phone: [facility] 03-28-2022 14:44-0400 Systolic blood pressure 142 mm[Hg] Bill Tuttle MD Work Phone: [facility] 03-22-2022 10:27-0400 Body height 182.9 cm Barbara Rogers OUTREACH ASSOCIATE.AGITATOR OPERATOR Work Phone: [facility] 03-22-2022 10:27-0400 Body weight 90.72 kg Barbara Rogers OUTREACH ASSOCIATE.AGITATOR OPERATOR Work Phone: [facility] 03-22-2022 10:27-0400 Diastolic blood pressure 86 mm[Hg] Barbara Rogers OUTREACH ASSOCIATE.AGITATOR OPERATOR Work Phone: [facility] 03-22-2022 10:27-0400 Heart rate 56 /min Barbara Rogers OUTREACH ASSOCIATE.AGITATOR OPERATOR Work Phone: [facility] 03-22-2022 10:27-0400 Systolic blood pressure 147 mm[Hg] Barbara Rogers OUTREACH ASSOCIATE.AGITATOR OPERATOR Work Phone: [facility] 09-12-2021 14:04-0500 Body height 182.88 cm Sedrick Ye Work Phone: [facility] DO Work Phone: 09-12-2021 14:04-0500 Body mass index (BMI) [Ratio] 27.53 kg/m2 Sedrick Ye Work Phone: [facility] DO Work Phone: 09-12-2021 14:04-0500 Body surface area Derived from formula 2.14 m2 Sedrick Ye Work Phone: [facility] DO Work Phone: 09-12-2021 14:04-0500 Body weight 92.08 kg Sedrick Ye Work Phone: [facility] DO Work Phone: 09-12-2021 14:04-0500 Diastolic blood pressure 84 mm[Hg] Sedrick Ye Work Phone: [facility] DO Work Phone: 09-12-2021 14:04-0500 Heart rate 95 /min Sedrick Ye Work Phone: [facility] DO Work Phone: 09-12-2021 14:04-0500 Systolic blood pressure 144 mm[Hg] Sedrick Ye Work Phone: [facility] DO Work Phone: 06-26-2021 13:28-0400 Diastolic blood pressure 88 mm[Hg] Sedrick Sarabjit Ye Work Phone: [facility] DO Work Phone: 06-26-2021 13:28-0400 Systolic blood pressure 138 mm[Hg] Sedrick Sarabjit Ye Work Phone: [facility] DO Work Phone: 06-26-2021 13:06-0400 Body height 182.88 cm Sedrick Ye Work Phone: [facility] DO Work Phone: 06-26-2021 13:06-0400 Body mass index (BMI) [Ratio] 27.94 kg/m2 Sedrick Ye Work Phone: [facility] DO Work Phone: 06-26-2021 13:06-0400 Body surface area Derived from formula 2.16 m2 Sedrick Sarabjit Ye Work Phone: [facility] DO Work Phone: 06-26-2021 13:06-0400 Body weight 93.44 kg Sedrick Sarabjit Ye Work Phone: [facility] DO Work Phone: 06-26-2021 13:06-0400 Diastolic blood pressure 100 mm[Hg] Sedrick Whipple Ye Work Phone: [facility] DO Work Phone: 06-26-2021 13:06-0400 Heart rate 92 /min Sedrick Ye Work Phone: [facility] DO Work Phone: 06-26-2021 13:06-0400 Systolic blood pressure 148 mm[Hg] Sedrick Ye Work Phone: [facility] DO Work Phone: Encounters Encounter Date Encounter Type Care Provider Facility Start: 04-04-2025 End: 04-04-2025 Patient encounter procedure Ita Tuttle MD Work Phone: Cardiology Comment on above: PAF (paroxysmal atri al fibrillation) (HCC) (Primary Dx); Atrial fibrillation, persistent (HCC); Benign essential HTN; Hypertension, unspecified type; Tachycardia induced cardiomyopathy (HCC) Start: 03-17-2025 End: 03-17-2025 Telephone encounter Linda PIEDRA Work Phone: [facility] Start: 03-04-2025 Registered Recurring Christian Carlos [facility] Work Phone: Start: 03-04-2025 End: 03-04-2025 ambulatory Linda LAZCANOC Work Phone: [facility] Work Phone: Start: 03-04-2025 End: 03-04-2025 Patient encounter procedure Christian Carlos [facility] Work Phone: Start: 03-01-2025 End: 03-01-2025 Bamboo flowsheet Linda PIEDRA Work Phone: [facility] Start: 03-01-2025 End: 03-01-2025 Bamboo flowsheet Linda PIEDRA Work Phone: [facility] Start: 03-01-2025 End: 03-01-2025 Patient encounter status Linda PIEDRA Work Phone: [facility] Work Phone: Start: 03-01-2025 End: 03-01-2025 Periodic preventive med est patient 65yrs& older Linda PIEDRA Work Phone: [facility] Comment on above: Wellness examination (Primary Dx); Muscle cramping; Primary hypertension ; Obstructive sleep apnea syndrome; Lymphocytosis; Arteriosclerotic vascular disease; Erectile dysfunction, unspecified erectile dysfunction type; Lung nodule; History of nephrolithiasis; History of COVID-19; Other thrombophilia (HHS-HCC); Thoracic aortic ectasia; History of colon polyps; PONV (postoperative nausea and vomiting); IFG (impaired fasting glucose); Screening for malignant neoplasm of prostate Start: 03-01-2025 End: 03-01-2025 ambulatory LINDA KEYS Not Available Start: 02-19-2025 End: 02-19-2025 ambulatory NON STAFF [facility] Work Phone: Start: 02-19-2025 End: 02-19-2025 Patient encounter procedure Hannah Chambers OUTREACH ASSOCIATE -[facility] Work Phone: Start: 02-10-2025 End: 02-15-2025 External Result Encounter Christian Carlos DO Work Phone: [facility] External Department Unsolicited Start: 02-10-2025 End: 02-15-2025 External Result Encounter Christian Carlos DO Work Phone: [facility] External Department Unsolicited Start: 02-10-2025 End: 02-10-2025 Admission to same day surgery center Christian Carlos II DO -CT Scan [facility] [place] Work Phone: Start: 02-10-2025 End: 02-10-2025 ambulatory Linda Keys Facility:[facility] Start: 01-21-2025 End: 01-21-2025 ambulatory NON STAFF [facility] Work Phone: Start: 01-21-2025 End: 01-21-2025 [facility] Work Phone: Start: 01-13-2025 End: 01-18-2025 External Result Encounter Christian Carlos DO Work Phone: [facility] External Department Unsolicited Start: 01-13-2025 End: 01-18-2025 External Result Encounter Christian Carlos DO Work Phone: [facility] External Department Unsolicited Start: 01-01-2025 End: 01-03-2025 Refill Ita Tuttle MD Work Phone: Cardiology Comment on above: Refill Request Start: 12-09-2024 End: 12-09-2024 Patient encounter procedure Eulalio Irby DO Work Phone: [facility] Comment on above: S/P right knee arthr oscopy (Primary Dx) Start: 12-09-2024 End: 12-09-2024 ambulatory EULALIO IRBY Not Available Start: 12-09-2024 End: 12-09-2024 Bamboo flowsheet Eulalio Irby DO Work Phone: [facility] Start: 12-09-2024 End: 12-09-2024 Bamboo flowsheet Eulalio Irby DO Work Phone: [facility] Start: 11-30-2024 End: 11-30-2024 ambulatory Sedrick Ye MD Work Phone: [facility] Work Phone: Start: 11-30-2024 End: 11-30-2024 Departed Referred Sedrick Ye MD Work Phone: [facility] Work Phone: Start: 11-12-2024 Registered Recurring Sedrick carrillo MD Work Phone: [facility] Work Phone: Start: 11-09-2024 End: 11-09-2024 ambulatory LINDA KEYS Not Available Start: 10-28-2024 End: 10-28-2024 ambulatory EULALIO IRBY Not Available Start: 09-30-2024 End: 09-30-2024 Patient encounter procedure Eulalio Uribe Mahamed DO Work Phone: [facility] Comment on above: Left hand pain (Prim jose Dx); S/P right knee arthroscopy; Right knee pain, unspecified chronicity Start: 09-30-2024 End: 09-30-2024 ambulatory EULALIO Uribe MAHAMED Not Available Start: 09-30-2024 End: 09-30-2024 ambulatory EULALIO Uribe MAHAMED Not Available Start: 09-27-2024 End: 09-28-2024 Refill Ita Tuttle MD Work Phone: Cardiology Comment on above: Refill Request Start: 09-21-2024 End: 09-21-2024 ambulatory TONY ARMSTRONG Facility:[facility] Start: 09-21-2024 End: 09-21-2024 Patient encounter procedure Tony Armstrong PA-C Work Phone: Cardiology Comment on above: Primary hypertension (Primary Dx); PAF (paroxysmal atrial fibrillation) (HCC); Coronary artery calcification Start: 09-15-2024 End: 09-15-2024 Office outpatient visit 15 minutes Linda PIEDRA Work Phone: [facility] Comment on above: Acute non-recurrent maxillary sinusitis (Primary Dx) Start: 09-15-2024 End: 09-15-2024 ambulatory LINDA KEYS Not Available Start: 08-24-2024 End: 08-24-2024 Bamboo flowsheet Eulalio Jojo Mahamed DO Work Phone: [facility] Start: 08-24-2024 End: 08-24-2024 Bamboo flowsheet Eulalio Jojo Mahamed DO Work Phone: [facility] Start: 08-24-2024 End: 08-24-2024 Patient encounter procedure Eulalio A Mahamed DO Work Phone: [facility] Comment on above: S/P right knee arthr oscopy (Primary Dx) Start: 08-24-2024 End: 08-24-2024 ambulatory EULALIO A MAHAMED Not Available Start: 07-30-2024 End: 07-30-2024 ambulatory EULALIO IRBY Not Available Start: 07-29-2024 End: 07-29-2024 ambulatory EULALIO IRBY Not Available Start: 07-28-2024 End: 07-28-2024 ambulatory UELALIO IRBY Not Available Start: 07-28-2024 End: 07-29-2024 Orders Only Christian Carlos DO Work Phone: [facility] External Department Unsolicited Start: 07-27-2024 End: 07-27-2024 Patient encounter procedure Eulalio Irby DO Work Phone: [facility] Comment on above: Pre-op testing Start: 07-27-2024 End: 07-27-2024 Patient encounter status Eulalio Irby DO Work Phone: [facility] Work Phone: Start: 07-27-2024 End: 07-27-2024 ambulatory EULALIO IRBY Not Available Start: 07-27-2024 End: 07-27-2024 Bamboo flowsheet Eulalio Irby DO Work Phone: [facility] Start: 07-27-2024 End: 07-27-2024 Bamboo flowsheet Eulalio Irby DO Work Phone: [facility] Start: 07-24-2024 End: 07-24-2024 ambulatory Hannah Queen Facility:[facility] Start: 06-29-2024 End: 06-30-2024 Refill Ita Tuttle MD Work Phone: Cardiology Comment on above: Refill Request Start: 06-29-2024 End: 06-29-2024 Telephone encounter Linda PIEDRA Work Phone: [facility] Start: 06-25-2024 End: 06-28-2024 Telephone encounter Kayla Rose LPN Work Phone: [facility] Start: 06-15-2024 End: 06-15-2024 Patient encounter procedure Eulalio Irby DO Work Phone: [facility] Comment on above: Tear of medial menis cus of right knee, current, unspecified tear type, subsequent encounter (Primary Dx) Start: 06-15-2024 End: 06-15-2024 ambulatory EULALIO IRBY Not Available Start: 06-15-2024 End: 06-15-2024 Bamboo flowsheet Eulalio Irby DO Work Phone: [facility] Start: 06-15-2024 End: 06-15-2024 Bamboo flowsheet Eulalio Irby DO Work Phone: [facility] Start: 06-11-2024 End: 06-11-2024 Postop follow up visit related to original px Grace Bucio MD Work Phone: [facility] Comment on above: Screening for malign ant neoplasm of colon (Primary Dx) Start: 06-11-2024 End: 06-11-2024 ambulatory GRACE BUCIO V Not Available Start: 06-10-2024 End: 06-10-2024 Office outpatient visit 25 minutes Sedrick Lyons PRECISION LAYOUT WORKER Work Phone: [facility] Comment on above: Strain of thoracic b ack region (Primary Dx); Muscle spasm Start: 06-10-2024 End: 06-10-2024 ambulatory SEDRICK LYONS Not Available Start: 06-10-2024 End: 06-10-2024 Bamboo flowsheet Sedrick Lyons PRECISION LAYOUT WORKER Work Phone: [facility] Start: 06-10-2024 End: 06-10-2024 Bamboo flowsheet Sedrick [place]ons PRECISION LAYOUT WORKER Work Phone: [facility] Start: 05-21-2024 End: 05-21-2024 Office outpatient new 45 minutes Grace Bucio MD Work Phone: [facility] Comment on above: History of colon pro yps (Primary Dx); Screening for malignant neoplasm of colon Start: 05-21-2024 End: 05-21-2024 ambulatory GRACE BUCIO V Not Available Start: 04-23-2024 End: 04-23-2024 ambulatory MD Sedrick Ye Work Phone: [facility] Work Phone: Start: 04-23-2024 End: 04-23-2024 Patient encounter procedure MD Sedrick Ye Work Phone: [facility] Work Phone: Start: 04-23-2024 End: 05-03-2024 External Result Encounter Jose Mariano Sujatha PRECISION LAYOUT WORKER Work Phone: [facility] Unsolicited Start: 04-23-2024 End: 05-03-2024 External Result Encounter Jose Mariano Sujatha PRECISION LAYOUT WORKER Work Phone: [facility] Unsolicited Start: 04-23-2024 Registered Recurring MD Sedrick hussein [facility] Work Phone: Start: 04-20-2024 End: 04-20-2024 External Result Encounter Christian Li Breanna DO Work Phone: [facility] Unsolicited Start: 04-20-2024 End: 04-20-2024 External Result Encounter Christian Li Breanna DO Work Phone: [facility] Unsolicited Start: 02-29-2024 ambulatory Ita Tuttle MD Work Phone: Cardiology Start: 02-29-2024 Patient encounter procedure Ita Tuttle MD Work Phone: Cardiology Comment on above: Fatigue Start: 02-12-2024 ambulatory Ita Tuttle MD Work Phone: Cardiology Start: 02-12-2024 Patient encounter procedure Ita Tuttle MD Work Phone: Cardiology Comment on above: Vitamins Start: 01-30-2024 End: 01-30-2024 Patient encounter procedure Ita Tuttle MD Work Phone: Cardiology Comment on above: Paroxysmal atrial fi brillation (HCC) (Primary Dx); Atrial fibrillation, persistent (HCC); Benign essential HTN; Hypertension, unspecified type; Prescription refill; Tachycardia induced cardiomyopathy (HCC); Aortic root dilatation (HCC) Start: 01-30-2024 End: 01-30-2024 ambulatory ITA TUTTLE Facility:[facility] Start: 01-23-2024 End: 01-23-2024 ambulatory MD Sedrick Ye Work Phone: [facility] Work Phone: Start: 01-23-2024 End: 01-23-2024 Patient encounter procedure MD Sedrick Ye Work Phone: [facility] Work Phone: Start: 01-23-2024 Registered Recurring MD Sedrick hussein Work Phone: [facility] Work Phone: Start: 12-31-2023 Refill Ita Tuttle MD Work Phone: Cardiology Comment on above: Refill Request Start: 10-03-2023 End: 10-03-2023 ambulatory ITA TUTTLE Facility:[facility] Start: 09-15-2023 Telephone encounter Ita hameed MD Work Phone: Cardiology Start: 07-31-2023 End: 07-31-2023 Patient encounter procedure Ita Tuttle MD Work Phone: Cardiology Comment on above: Hypertension, unspec ified type (Primary Dx); Aortic root dilatation (HCC) Start: 06-02-2023 End: 06-03-2023 ambulatory Iesha Gamino Facility:[facility] [place] Start: 04-14-2023 End: 04-15-2023 ambulatory Iesha Gamino Facility:CD:[id number] Start: 04-09-2023 End: 04-10-2023 ambulatory SEDRICK YE Facility:[facility] Start: 04-01-2023 Refill Britney Gamboa APRN.AGITATOR OPERATOR, DNP Work Phone: Cardiology Comment on above: Refill Request Start: 02-17-2023 ambulatory Ita Tuttle MD Work Phone: Cardiology Comment on above: Eliquis and Aspirin question Start: 01-21-2023 End: 01-22-2023 ambulatory [facility] Facility: Start: 12-27-2022 End: 12-28-[address] SEDRICK YE . Facility:[facility] Start: 12-25-2022 End: 12-25-2022 Patient encounter procedure Ita Tuttle MD Work Phone: Cardiology Comment on above: Hypertension, unspec ified type (Primary Dx) Start: 12-24-2022 End: 12-25-2022 ambulatory [facility] Facility: Start: 11-16-2022 End: 11-17-2022 ambulatory SUKHDEEP ZUNIGA Facility:[facility] Start: 10-28-2022 Telephone encounter Hiren willson MD Work Phone: Cardiology Comment on above: Patient Question Start: 10-17-2022 End: 10-18-2022 ambulatory ITA TUTTLE Facility:[facility] Start: 10-17-2022 End: 10-17-2022 Patient encounter procedure Ita Tuttle MD Work Phone: Cardiology Comment on above: Hypertension, unspec ified type (Primary Dx) Start: 10-16-2022 ambulatory Ita Tuttle MD Work Phone: Cardiology Comment on above: Nifedipine Refill Request Start: 10-13-2022 Refill Britney Gamboa APRN.AGITATOR OPERATOR, DNP Work Phone: Cardiology Comment on above: Refill Request Start: 10-09-2022 End: 10-09-[address] SEDRICK YE . Facility: Start: 10-06-2022 Refill Ita Tuttle MD Work Phone: Cardiology Comment on above: Refill Request Start: 09-13-2022 End: 09-13-2022 Patient encounter procedure Ita Tuttle MD Work Phone: Cardiology Comment on above: Hypertension, unspec ified type (Primary Dx) Start: 08-02-2022 Telephone encounter Ita hameed MD Work Phone: Cardiology Comment on above: Patient Update Results Start: 08-01-2022 End: 08-01-2022 Patient encounter procedure Hiren Sena MD Work Phone: Cardiology Comment on above: Atrial fibrillation, persistent (HCC) (Primary Dx); Hypertension, unspecified type; DMITRY (obstructive sleep apnea); Benign essential HTN; S/P ablation of atrial fibrillation; Encounter for current long-term use of anticoagulants Start: 06-10-2022 Arrhythmia TTM Hiren montanez MD Work Phone: [facility] Department Start: 06-10-2022 Recurring Plan Hiren montanez MD Work Phone: [facility] Start: 05-16-2022 ambulatory Hiren montanez MD Work Phone: Cardiology Comment on above: portable EKG transmi tter machine Start: 05-10-2022 End: 05-10-2022 Patient encounter procedure Ita Tuttle MD Work Phone: Cardiology Comment on above: Tachycardia induced cardiomyopathy (HCC) (Primary Dx) Start: 05-06-2022 Arrhythmia TTM Hiren montanez MD Work Phone: [facility] Start: 05-06-2022 Recurring Plan Hiren montanez MD Work Phone: [facility] Start: 04-22-2022 Arrhythmia TTM Hiren montanez MD Work Phone: [facility] Start: 04-22-2022 Recurring Plan Hiren montanez MD Work Phone: [facility] Start: 04-12-2022 ambulatory Bridget Hudson Pulmonar y Medicine Start: 04-03-2022 Arrhythmia TTM Hiren montanez MD Work Phone: [facility] Start: 04-03-2022 Recurring Plan Hiren montanez MD Work Phone: [facility] Start: 04-02-2022 ambulatory Barbara jameson OUTREACH ASSOCIATE.AGITATOR OPERATOR Work Phone: Cardiology Comment on above: update on weaning of f Sotalol EKG transmission eduardo ceballos Start: 04-02-2022 E-mail encounter johnny chambers caregiver Barbara Mccloud OUTREACH ASSOCIATE.AGITATOR OPERATOR Work Phone: [facility] Start: 03-29-2022 ambulatory Hiren montanez MD Work Phone: [facility] Start: 03-29-2022 Follow-up encounter Hiren willson MD Work Phone: Cardiology Comment on above: Sotalol follow up Start: 03-28-2022 End: 03-28-2022 Patient encounter procedure Ita Tuttle MD Work Phone: Cardiology Comment on above: Atherosclerosis ([place] Dx); Ascending aorta dilatation (HCC); Tachycardia induced cardiomyopathy (HCC) Start: 03-26-2022 ambulatory Bijal Davis am, PA-C Work Phone: Pulmonary Medicine Start: 03-22-2022 ambulatory Barbara Drea jameson OUTREACH ASSOCIATE.AGITATOR OPERATOR Work Phone: Cardiology Comment on above: Ct scan results echo results Start: 03-22-2022 E-mail encounter johnny chambers caregiver Barbara Mccloud OUTREACH ASSOCIATE.AGITATOR OPERATOR Work Phone: [facility] Start: 03-22-2022 End: 03-22-2022 Patient encounter procedure Barbara Toledohardt OUTREACH ASSOCIATE.AGITATOR OPERATOR Work Phone: Cardiology Comment on above: Atrial fibrillation, persistent (HCC) (Primary Dx); Lung nodule; DMITRY (obstructive sleep apnea) Start: 03-22-2022 End: 03-22-2022 Subsequent hospital visit by physician April Li (I-Stat) Work Phone: Radiology Comment on above: Persistent atrial fi brillation (HCC) [I48.19] Start: 03-19-2022 Arrhythmia TTM Hiren montanez MD Work Phone: [facility] Start: 03-19-2022 Recurring Plan Hiren monatnez MD Work Phone: [facility] Start: 03-13-2022 Arrhythmia TTM Hiren montanez MD Work Phone: [facility] Start: 03-13-2022 Recurring Plan Hiren montanez MD Work Phone: [facility] Start: 03-04-2022 Arrhythmia TTM Hiren montanez MD Work Phone: [facility] Start: 03-04-2022 Recurring Plan Hiren montanez MD Work Phone: [facility] Start: 02-18-2022 Arrhythmia TTM Hiren montanez MD Work Phone: [facility] Start: 02-18-2022 Recurring Plan Hiren montanez MD Work Phone: [facility] Start: 02-12-2022 Arrhythmia TTM Hiren montnaez MD Work Phone: [facility] Start: 02-12-2022 Recurring Plan Hiren montanez MD Work Phone: [facility] Start: 02-08-2022 Arrhythmia TTM Hiren montanez MD Work Phone: [facility] Start: 02-08-2022 Recurring Plan Hiren montanez MD Work Phone: [facility] Start: 02-04-2022 Arrhythmia TTM Hiren montanez MD Work Phone: [facility] Start: 02-04-2022 Recurring Plan Hiren montanez MD Work Phone: [facility] Start: 01-28-2022 Arrhythmia TTM Hiren montanez MD Work Phone: [facility] Start: 01-28-2022 Recurring Plan Hiren montanez MD Work Phone: [facility] Start: 01-22-2022 Arrhythmia TTM Hiren montanez MD Work Phone: [facility] Start: 01-22-2022 Recurring Plan Hiren montanez MD Work Phone: [facility] Start: 01-18-2022 Arrhythmia TTM Hiren montanez MD Work Phone: [facility] Start: 01-18-2022 Recurring Plan Hiren montanez MD Work Phone: [facility] Start: 01-14-2022 Arrhythmia TTM Hiren montanez MD Work Phone: [facility] Start: 01-14-2022 Recurring Plan Hiren montanez MD Work Phone: [facility] Start: 01-09-2022 MC Get Medical Advice Ita Tuttle MD Work Phone: Cardiology Comment on above: Mail order doesn t h ave prescriptions Start: 01-07-2022 Arrhythmia TTM Hiren montanez MD Work Phone: [facility] Start: 01-07-2022 Recurring Plan Hiren montanez MD Work Phone: [facility] Start: 12-21-2021 Refill Ita Tuttle MD Work Phone: Internal Medicine Comment on above: Refill Request Start: 12-20-2021 Refill Hiren montanez MD Work Phone: Cardiology Comment on above: Refill Request Furosemide needed be fore vacation tomorrow Start: 12-17-2021 Arrhythmia TTM Hiren montanez MD Work Phone: [facility] Start: 12-17-2021 Recurring Plan Hiren montanez MD Work Phone: [facility] Start: 12-12-2021 Orders Only Foreign GOEMZ RN.AGITATOR OPERATOR Work Phone: Cardiology Comment on above: Persistent atrial fi brillation (HCC) Start: 12-11-2021 Arrhythmia TTM Hiren montanez MD Work Phone: [facility] Start: 12-11-2021 Recurring Plan Hiren montanez MD Work Phone: [facility] Start: 12-06-2021 ambulatory Hiren montanez MD Work Phone: Cardiology Comment on above: Resent FMLA paperwor k Start: 12-05-2021 ambulatory Hiren montanez MD Work Phone: Cardiology Comment on above: Return to work date Start: 12-05-2021 Telephone encounter Hiren willson MD Work Phone: Cardiology Comment on above: Post Dc Program Call - Needs Attn chest discomfort aft er ablation Start: 12-04-2021 ambulatory Hiren montanez MD Work Phone: Cardiology Comment on above: Transmitter (3 month s) Start: 12-04-2021 Arrhythmia TTM Hiren montanez MD Work Phone: [facility] Start: 12-04-2021 Recurring Plan Hiren montanez MD Work Phone: [facility] Start: 11-30-2021 ambulatory Hiren montanez MD Work Phone: Cardiology Comment on above: Patient Education (P ) Start: 10-29-2021 Patient encounter procedure Sedrick Ye Work Phone: [facility] 600 DO Work Phone: Start: 09-18-2021 Telephone encounter Sedrick Vela ht Work Phone: [facility] 250 DO Work Phone: Start: 09-12-2021 Patient encounter procedure Sedrick Ye Work Phone: [facility] 250 DO Work Phone: Start: 08-29-2021 Chart Update Sedrick Ye Work Phone: [facility] [facility] DO Work Phone: Start: 06-26-2021 Office outpatient vi sit 25 minutes Sedrick Ye Work Phone: [facility] [facility] DO Work Phone: Procedures Date Procedure Procedure Detail Performing Clinician Start: 04-04-2025 Ecg routine ecg w/le ast 12 lds i&r only [facility] Provider Start: 02-10-2025 PATHOLOGY REQUEST FO R LAB REINA Christian Carlos DO Work Phone: Start: 02-10-2025 COAGULATION PROFILE Keith Carlos DO Work Phone: Start: 02-10-2025 Comprehensive metabo lic panel Christian Carlos DO Work Phone: Start: 02-10-2025 Serum immunofixation Comment on above: No monoclonality det ected. Start: 02-10-2025 Bone marrow sampling Start: 01-13-2025 Comprehensive metabo lic panel Christian Carlos DO Work Phone: Start: 01-13-2025 FLOWCYTOMETRY NEOGENOMIC Christian Carlos DO Work Phone: Start: 09-30-2024 Arthrocentesis aspir &/inj major jt/bursa w/o us Eulalio Irby DO Work Phone: Start: 09-30-2024 End: 09-30-2024 Radex hand minimum 3 views Eulalio Irby DO Work Phone: Start: 07-28-2024 Complete blood count with white cell differential, automated Chirstian Carlos DO Work Phone: Start: 07-28-2024 Comprehensive metabo lic panel Christian Carlos DO Work Phone: Start: 07-28-2024 SPECIMEN STATUS REPORT Christian Carlos DO Work Phone: Start: 04-23-2024 VITAMIN D 25 HYDROXY,TOT+D2+D3 Jose Solares PRECISION LAYOUT WORKER Work Phone: Start: 04-20-2024 Comprehensive metabo lic panel Christian Carlos DO Work Phone: Start: 07-31-2023 Ecg routine ecg w/le ast 12 lds i&r only [facility] Provider Start: 12-27-[address] SEDRICK HUSSEIN . Comment on above: Performed By: #### P [facility] #### [facility] [address] [place] [address] Dr. Gautam Van Start: 08-07-2022 Lipid 1996 panel - S hesham or Plasma Bill Tuttle MD Work Phone: Start: 08-01-2022 Ecg routine ecg w/le ast 12 lds i&r only [facility] Provider Start: 06-10-2022 ARRHYTHMIA TRANS TEL E MEASURE Hiren Sena MD Work Phone: Start: 05-06-2022 ARRHYTHMIA TRANS TEL E MEASURE Hiren Sena MD Work Phone: Start: 04-22-2022 ARRHYTHMIA TRANS TEL E MEASURE Hiren Sena MD Work Phone: Start: 04-03-2022 ARRHYTHMIA TRANS TEL E MEASURE Hiren Sena MD Work Phone: Start: 03-22-2022 Ct heart contrast ev al cardiac structure&morph Foreign Juan OUTREACH ASSOCIATE.AGITATOR OPERATOR Work Phone: Start: 03-22-2022 Creatinine [Mass/vol ume] in Serum or Plasma [facility] Provider Start: 03-19-2022 ARRHYTHMIA TRANS TEL E MEASURE Hiren Sena MD Work Phone: Start: 03-13-2022 ARRHYTHMIA TRANS TEL E MEASURE Hiren Sena MD Work Phone: Start: 03-04-2022 ARRHYTHMIA TRANS TEL E MEASURE Hiren Sena MD Work Phone: Start: 02-18-2022 ARRHYTHMIA TRANS TEL E MEASURE Hiren Sena MD Work Phone: Start: 02-12-2022 ARRHYTHMIA TRANS TEL E MEASURE Hiren Sena MD Work Phone: Start: 02-08-2022 ARRHYTHMIA TRANS TEL E MEASURE Hiren Sena MD Work Phone: Start: 02-04-2022 ARRHYTHMIA TRANS TEL E MEASURE Hiren Sena MD Work Phone: Start: 01-28-2022 ARRHYTHMIA TRANS TEL E MEASURE Hiren Sena MD Work Phone: Start: 01-22-2022 ARRHYTHMIA TRANS TEL E MEASURE Hiren Sena MD Work Phone: Start: 01-18-2022 ARRHYTHMIA TRANS TEL E MEASURE Hiren Sena MD Work Phone: Start: 01-14-2022 ARRHYTHMIA TRANS TEL E MEASURE Hiren Sena MD Work Phone: Start: 01-07-2022 ARRHYTHMIA TRANS TEL E MEASURE Hiren Sena MD Work Phone: Start: 12-17-2021 ARRHYTHMIA TRANS TEL E MEASURE Hiren Sena MD Work Phone: Start: 12-11-2021 ARRHYTHMIA TRANS TEL E MEASURE Hiren Sena MD Work Phone: Start: 12-04-2021 ARRHYTHMIA TRANS TEL E MEASURE Hiren Sena MD Work Phone: Start: 04-05-2020 Echocardiography Start: 10-02-2018 Colonoscopy Christian meehan DO Work Phone: Total colonoscopy Sedrick steven Work Phone: Comment on above: 08/2009; Plan of Treatment Date Care Activity Detail Author Start: 2034 RSV Vaccine (1 - 1-d ose 75+ series) RSV Vaccine (1 - 1-dose 75+ series) [facility] Start: 03-18-2030 Prostate specific an tigen measurement Prostate Cancer Screening Discussion [facility] Start: 10-02-2028 Screening for malign ant neoplasm of colon [facility] Start: 03-18-2028 Diabetes Screening Diabetes Screenin g [facility] Start: 12-28-2027 PROSTATE CANCER SCRE ENING DISCUSSION PROSTATE CANCER SCREENING DISCUSSION [facility] Start: 12-28-2027 Prostate specific an tigen measurement Prostate Cancer Screening Discussion [facility] Start: 08-07-2027 Lipid 1996 panel - S hesham or Plasma Lipid Screening [facility] Start: 08-07-2027 Lipid panel Lipid Screening [facility] Start: 08-07-2027 LIPID SCREEN LIPID SCREEN [facility] Start: 08-07-2027 PROSTATE CANCER SCRE ENING DISCUSSION PROSTATE CANCER SCREENING DISCUSSION [facility] Start: 04-20-2027 Diabetes Screening Diabetes Screenin g [facility] Start: 04-01-2027 LIPID SCREEN LIPID SCREEN [facility] Start: 01-01-2027 PROSTATE CANCER SCRE ENING DISCUSSION PROSTATE CANCER SCREENING DISCUSSION [facility] Start: 04-05-2026 End: 04-05-2026 Patient encounter procedure 04/05/2026 8:00 AM EDT Office Visit Cardiology [id number] [place] [id number] [place] [address] [place] [address] yearly follow up Cardiology Comment on above: yearly follow up Start: 10-17-2025 DIABETES SCREEN DIABETES SCREEN [facility] Start: 10-17-2025 Diabetes Screening Diabetes Screenin g [facility] Start: 08-07-2025 DIABETES SCREEN DIABETES SCREEN [facility] Start: 06-13-2025 End: 06-13-2025 Patient encounter procedure 06/13/2025 10:30 AM EDT Office Visit Cardiology [address] [place] [address] [place] [address] PAF (paroxysmal atrial fibrillation) (HCC) [I48.0] Cardiology Comment on above: PAF (paroxysmal atri al fibrillation) (HCC) [I48.0] Start: 04-25-2025 Influenza vaccination N S [facility] Start: 04-04-2025 End: 04-04-2025 Patient encounter procedure 04/04/2025 2:30 PM EDT Office Visit Cardiology [address] [place] [address] [place] [address] [place] [address] Return in about 6 months (around 03/21/2025) for Please schedule appt with Dr. Tuttle in 6 months. Cardiology Comment on above: Return in about 6 mo nths (around 03/21/2025) for Please schedule appt with Dr. Tuttle in 6 months. Start: 04-01-2025 DIABETES SCREEN DIABETES SCREEN [facility] Start: 03-01-2025 End: 03-01-2025 Patient encounter procedure [facility] Comment on above: Arrived Start: 02-10-2025 [facility] Start: 02-08-2025 End: 02-08-2025 Patient encounter procedure 02/08/2025 4:00 PM EDT Office Visit [facility] [address] [place] [address] Linda Keys PA [address] [place] [address] [facility] Start: 12-09-2024 End: 12-09-2024 Patient encounter procedure 12/09/2024 3:45 PM EDT Office Visit [facility] [address] [place] [phone] Eulalio Irby DO [address] [place], [place] [id number] Arrived [facility] Comment on above: Arrived Start: 12-03-2024 DIABETES SCREEN DIABETES SCREEN [facility] Start: 10-28-2024 End: 10-28-2024 Patient encounter procedure 10/28/2024 3:45 PM EST Office Visit [facility] [address] [place] [phone] Eulalio Irby DO [address] [place], [place] [id number] [facility] Start: 10-22-2024 DIABETES SCREEN DIABETES SCREEN [facility] Start: 09-30-2024 End: 09-30-2024 Patient encounter procedure 09/30/2024 3:30 PM EST Office Visit [facility] [address] [place] [address] Eulalio Irby DO [address] [place] [address] [facility] Start: 2024 Advance Directive Discussion Advance Directive Discussion [facility] Start: 2024 Pneumococcal Vaccine : 65+ Years (1 of 1 - PCV) Pneumococcal Vaccine: 65+ Years (1 of 1 - PCV) [facility] Start: 08-24-2024 End: 08-24-2024 Patient encounter procedure [facility] Comment on above: Arrived Start: 08-03-2024 End: 07-27-2025 CBC W Auto Differential panel - Blood CBC auto differential Lab Routine Pre-op testing Expected: 08/03/2024 (Approximate), Expires: 07/27/2025 [facility] Work Phone: Comment on above: Expected: 08/03/2024 (Approximate), Expires: 07/27/2025 Start: 08-03-2024 End: 07-27-2025 Comprehensive metabolic 2000 panel - Serum or Plasma Comprehensive metabolic panel Lab Routine Pre-op testing Expected: 08/03/2024 (Approximate), Expires: 07/27/2025 [facility] Comment on above: Expected: 08/03/2024 (Approximate), Expires: 07/27/2025 Start: 07-30-2024 End: 07-30-2024 Professional / ancillary services management 07/30/2024 3:30 PM EST Ancillary Procedure [facility] [id number] [facility] [address] [place] [address] [facility] Start: 07-30-2024 End: 07-30-2024 Patient encounter procedure 07/30/2024 3:00 PM EST Office Visit Cardiology [address] [place] [address] [place] [address] [place] [address] 6 month follow up Cardiology Comment on above: 6 month follow up Start: 07-27-2024 End: 07-27-2024 Patient encounter procedure 07/27/2024 3:30 PM EST Office Visit [facility] [address] [place] [address] Eulalio Irby DO [address] [place] [address] Arrived [facility] Comment on above: Arrived Start: 07-27-2024 End: 07-27-2025 ECG 12 lead ECG 12 lead ECG Routine Pre-op testing Expected: 07/27/2024 (Approximate), Expires: 07/27/2025 [facility] Comment on above: Expected: 07/27/2024 (Approximate), Expires: 07/27/2025 Start: 06-25-2024 End: 06-25-2025 XR Thoracic spine 3 Views XR thoracic spine 3 views Imaging Routine Strain of thoracic back region Muscle spasm Expected: 06/25/2024, Expires: 06/25/2025 [facility] Work Phone: Comment on above: Expected: 06/25/2024 , Expires: 06/25/2025 Start: 06-15-2024 End: 06-15-2024 Patient encounter procedure [facility] Comment on above: Arrived Start: 06-11-2024 End: 06-11-2024 Patient encounter procedure 06/11/2024 12:00 PM EDT Office Visit [facility] [address] [facility] [address] [place] [address] Grace Bucio MD [address] [facility] [address] [place] [address] [facility] Start: 06-10-2024 End: 06-10-2024 Patient encounter procedure 06/10/2024 4:30 PM EDT Office Visit [facility] [address] [facility] [address] [place] [address] Sedrick Lyons, PRECISION LAYOUT WORKER [address] [facility] [address] [place] [address] Arrived [facility] Comment on above: Arrived Start: 06-02-2024 End: 06-02-2024 Patient encounter procedure 06/02/2024 2:30 PM EDT Procedure Visit [facility] Grace Bucio MD [address] [facility] [address] [place] [address] [facility] Start: 05-21-2024 End: 05-21-2024 Patient encounter procedure 05/21/2024 12:00 PM EDT Consult [facility] [address] [phone] Grace Bucio MD [address] [facility] Start: 05-04-2024 End: 05-04-2024 Patient encounter procedure 05/04/2024 3:00 PM EDT Consult [facility] [address] [id number] Grace Bucio MD [address] [facility] Start: 04-25-2024 Covid-19 Vaccine ( season) Covid-19 Vaccine ( season) [facility] Start: 04-25-2024 Influenza vaccination C [facility] Start: 01-30-2024 End: 01-30-2024 Patient encounter procedure 01/30/2024 3:00 PM EDT Office Visit Cardiology [address] [place] [address] [place] [address] [place], [place] [id number] Return in about 6 months (around 01/30/2024). Cardiology Comment on above: Return in about 6 mo nths (around 01/30/2024). Start: 08-25-2023 Behavioral Health Screening Behavioral Health Screening [facility] Start: 08-25-2023 Depression Assessment Depression Ass [facility] Start: 04-25-2023 Covid-19 Vaccine () Covid-19 Vaccine () [facility] Start: 04-25-2023 Influenza vaccination C [facility] Start: 12-20-2022 BP CONTROLLED (<130/80) BP CONTROLLE D (<130/80) [facility] Start: 09-24-2022 BP CONTROLLED (<130/80) BP CONTROLLE D (<130/80) [facility] Start: 08-25-2022 DEPRESSION ASSESSMENT DEPRESSION ASS [facility] Start: 04-25-2022 Influenza vaccination C [facility] Start: 03-28-2022 End: 05-28-2022 Comprehensive metabolic 2000 panel - Serum or Plasma COMP METABOLIC PANEL Lab Routine Atherosclerosis Expected: 03/28/2022, Expires: 05/28/2022 [facility] Work Phone: Comment on above: Expected: 03/28/2022 , Expires: 05/28/2022 Start: 03-28-2022 End: 05-28-2022 Lipid 1996 panel - Serum or Plasma LIPID PANEL BASIC Lab Routine Atherosclerosis Expected: 03/28/2022, Expires: 05/28/2022 [facility] Work Phone: Comment on above: Expected: 03/28/2022 , Expires: 05/28/2022 Start: 03-13-2022 End: 01-11-2023 Ct heart contrast eval cardiac structure&morph CT PULMONARY VEIN W IVCON Radiology Routine Persistent atrial fibrillation (HCC) Expected: 03/13/2022, Expires: 01/11/2023 [facility] Work Phone: Comment on above: Expected: 03/13/2022 , Expires: 01/11/2023 Start: 12-12-2021 End: 12-12-2022 ECG COMPLETE ECG COMPLETE ECG Routine Persistent atrial fibrillation (HCC) Expected: 12/12/2021, Expires: 12/12/2022 [facility] Work Phone: Comment on above: Expected: 12/12/2021 , Expires: 12/12/2022 Start: 11-08-2021 FUV, Provider: Tera Davison, Status: Pen, Time: 3:10 PM FUV, Provider: Tera Davison, Status: Pen, Time: 3:10 PM [facility] 250 DO Work Phone: Start: 09-12-2021 EKG, Provider: STANISLAV RAMIREZ FLOTATION TENDER 1,[id number], Status: Pen, Time: 1:30 PM EKG, Provider: STANISLAV RAMIREZ FLOTATION TENDER 1,[id number], Status: Pen, Time: 1:30 PM [facility] 250 DO Work Phone: Start: 08-29-2021 [place], Provider: Tera Davison, Status: Pen, Time: 10:00 AM [facility], Provider: Tera Davison, Status: Pen, Time: 10:00 AM [facility] Work Phone: Start: 08-25-2021 [facility] Start: 07-25-2021 [place], Provider: Tera Davison, Status: Pen, Time: 9:00 AM [facility], Provider: Tera Davison, Status: Pen, Time: 9:00 AM [facility] 250 DO Work Phone: Start: 2019 RSV Vaccine (1 - 1-d ose 60+ series) RSV Vaccine (1 - 1-dose 60+ series) [facility] Start: 2014 PROSTATE CANCER SCRE ENING DISCUSSION PROSTATE CANCER SCREENING DISCUSSION [facility] Start: 2009 Pneumococcal Vaccine : 50+ (1 of 1 - PCV) Pneumococcal Vaccine: 50+ (1 of 1 - PCV) [facility] Start: 2009 Pneumococcal Vaccine : 65+ Years (1 of 1 - PCV) Pneumococcal Vaccine: 65+ Years (1 of 1 - PCV) [facility] Start: 2009 SHINGRIX VACCINE (1 of 2) READ GRIX VACCINE (1 of 2) [facility] Start: 2004 COLOGUARD (FIT-DNA) COLOGUARD (FIT-D NA) [facility] Start: 2004 Colonoscopy COLONOSCOPY [facility] Start: 2004 COLORECTAL CANCER SCREENING COLORECTAL CANCER SCREENING [facility] Start: [address] COLONOGRAPHY [facility] Start: 2004 FECAL OCCULT BLOOD FECAL OCCULT BLOO D [facility] Start: 2004 Screening for malign ant neoplasm of colon [facility] Start: 2004 SIGMOIDOSCOPY SIGMOIDOSCOPY [facility] Start: 1994 LIPID SCREEN LIPID SCREEN [facility] Start: 1978 Urine microalbumin profile [facility] Start: 1977 ANNUAL PCP TEAM [employer]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 S[employer]Y AND STANDARDS ENGINEER ABDIAZIZ DISEASE VISIT ANNUAL PCP TEAM CHRONIC DISEASE VISIT [facility] Start: 1977 Anxiety Screening Anxiety Screening [facility] Start: 1977 BP CONTROLLED (<130/80) BP CONTROLLE D (<130/80) [facility] Start: 1977 Depression Screening Depression Scre ening [facility] Start: 1977 HEPATITIS C SCREENING HEPATITIS C [facility] Start: 1977 Hepatitis C screening Hepatitis C [facility] Start: 1977 HIV SCREENING HIV SCREENING [facility] Start: 1977 HIV screening HIV Screening [facility] Start: 1971 Adult depression screening assessment DEPRESSION SCREENING [facility] Start: 1964 COVID-19 VACCINE (#1) COVID-19 VACCI NE (#1) [facility] Start: 1964 COVID-19 VACCINE (1) COVID-19 VACCIN E (1) [facility] Start: 03-20-1960 COVID-19 VACCINE (#1) COVID-19 VACCI NE (#1) [facility] Start: 1959 Screening for malign ant neoplasm of colon [facility] 25-hydroxyvitamin D3 [Mass/volume] in Serum or Plasma Vitamin D 25 hydroxy Total Lab Routine Wellness examination Muscle cramping Ordered: 03/01/2025 [facility] Comment on above: Ordered: 03/01/2025 Pimm-2-[id number] [Mass/volume] in Serum or Plasma [facility] Bone marrow sampling [facility] CBC W Auto Different ial panel - Blood CBC auto differential Lab Routine 04/20/2024 6:07 AM EDT [facility] Work Phone: CBC W Auto Different ial panel - Blood CBC auto differential Lab Routine 01/13/2025 7:10 AM EDT [facility] Work Phone: CBC W Auto Different ial panel - Blood CBC auto differential Lab Routine 02/10/2025 9:15 AM EDT [facility] Work Phone: Comprehensive metabo lic 1999 panel - Serum or Plasma [facility] Comprehensive metabo lic 1999 panel - Serum or Plasma [facility] Comprehensive metabo lic 1999 panel - Serum or Plasma [facility] End: 08-01-2023 ECG COMPLETE ECG COMPLETE ECG Routine Atrial fibrillation, persistent (HCC) 1 Occurrences starting 08/01/2022 until 08/01/2023 [facility] Work Phone: Comment on above: 1 Occurrences starti ng 08/01/2022 until 08/01/2023 ECG COMPLETE ECG COMPLETE ECG 08/01/2022 2:00 PM EST [facility] End: 12-12-2022 Echocardiography ECHO Cardiology Routine Persistent atrial fibrillation (HCC) 1 Occurrences starting 12/12/2021 until 12/12/2022 [facility] Work Phone: Comment on above: 1 Occurrences starti ng 12/12/2021 until 12/12/2022 End: 04-04-2026 Echocardiography ECHO Cardiology Routine PAF (paroxysmal atrial fibrillation) (HCC) 1 Occurrences starting 04/04/2025 until 04/04/2026 [facility] Work Phone: Comment on above: 1 Occurrences starti ng 04/04/2025 until 04/04/2026 Ferritin [Mass/volum e] in Serum or Plasma Ferritin Lab Routine 04/23/2024 3:51 PM EDT [facility] FREE K+L LT CHAINS, QN, S FREE K +L LT CHAINS, QN, S Lab Routine 02/10/2025 9:15 AM EDT [facility] Hemoglobin A1c/Hemoglobin.total in Blood Hemoglobin A1c Lab Routine Muscle cramping Wellness examination IFG (impaired fasting glucose) Ordered: 03/01/2025 [facility] Comment on above: Ordered: 03/01/2025 Iron and Iron bindin g capacity panel - Serum or Plasma Iron and TIBC Lab Routine 04/23/2024 3:51 PM EDT [facility] Work Phone: Lipid 1996 panel - S hesham or Plasma Lipid panel Lab Routine Wellness examination Primary hypertension Ordered: 03/01/2025 [facility] Comment on above: Ordered: 03/01/2025 Patient Education [facility] Bone Marrow Aspiration or Biopsy [facility] Work Phone: Patient referral [facility] Work Phone: Prostate specific Ag [Mass/volume] in Serum or Plasma PSA Lab Routine Wellness examination Screening for malignant neoplasm of prostate Ordered: 03/01/2025 [facility] Comment on above: Ordered: 03/01/2025 Protein electrophore sis, serum Protein electrophoresis, serum Lab Routine 02/10/2025 9:15 AM EDT [facility] Work Phone: TSH W/REFLEX TO FT4 TSH W/REFLEX TO FT4 Lab Routine Muscle cramping Wellness examination Ordered: 03/01/2025 [facility] Work Phone: Comment on above: Ordered: 03/01/2025 VIT. B12/FOLATE PROFILE VIT. B12 /FOLATE PROFILE Lab Routine 04/23/2024 3:51 PM EDT [facility] [place] Immunizations Immunization Date Immunization Notes Care Provider Fa cility 07-20-2022 influenza, injectabl e, quadrivalent, preservative free Christian Carlos DO Work Phone: [facility] 07-20-2022 influenza virus vaccine, unspecified formulation Bill Tuttle MD Work Phone: [facility] 06-10-2019 influenza, injectabl e, quadrivalent, preservative free Sedrick Sarabjit Ye Work Phone: [facility] 05-25-2019 influenza, seasonal, injectable Sedrick E Ye Work Phone: [place] [address] DO Work Phone: 06-10-2018 influenza, injectabl e, quadrivalent, preservative free Sedrick Ye Work Phone: [facility] 01-29-2005 hepatitis B vaccine, adult dosage Sedrick Sarabjit Ye Work Phone: [facility] 08-28-2004 hepatitis B vaccine, adult dosage Sedrick E Ye Work Phone: [facility] 07-24-2004 hepatitis B vaccine, adult dosage Sedrick Sarabjit Ye Work Phone: [facility] Payers Date Payer Category Payer Self-pay [id number] 2022 Private Health Insurance [id number] 2020 Unknown 2020 Unknown MMO MMO [employer]HS [id number] 2020-Present [phone] [address] [address] [place] [address] Indemnity [id number] 2020 Unknown [id number] 2019 Unknown [id number] 1959 Unknown [id number] 2.16.840.1.674349.3.579.2. 593 1959 Unknown [id number] 2.16.840.1.049140.3.579.2. 593 1959 Unknown [id number] 2.16.840.1.663637.3.579.2. 593 1959 Unknown [id number] 2.16.840.1.499133.3.579.2. 593 1959 Unknown [id number] 2.16.840.1.652116.3.579.2. 159 1959 Unknown [id number] 2.16.840.1.392684.3.579.2. 727 1959 Unknown [id number] 2.16.840.1.190132.3.579.2. 727 1959 Unknown [id number] 2.16.840.1.809470.3.579.2. 727 1959 Unknown [id number] 2.16.840.1.108146.3.579.2. 727 1959 Unknown [id number] 2.16.840.1.205203.3.579.2. 1259 1959 Unknown [id number] 2.16.840.1.785089.3.579.2. 1259 1959 Unknown [id number] 2.16.840.1.369439.3.579.2. 1259 1959 Unknown [id number] 2.16.840.1.669523.3.579.2. 1259 1959 Unknown [id number] 2.16.840.1.641309.3.579.2. 1259 1959 Unknown [id number] 2.16.840.1.148316.3.579.2. 1259 1959 Unknown [id number] 2.16.840.1.529321.3.579.2. 1259 1959 Unknown [id number] 2.16.840.1.072672.3.579.2. 9 1959 Unknown [id number] 2.16.840.1.449388.3.579.2. 1258 1959 Unknown [id number] 2.16.840.1.228581.3.579.2. 1258 1959 Unknown [id number] 2.16.840.1.725994.3.579.2. 1258 1959 Unknown [id number] 2.16.840.1.070359.3.579.2. 1258 1959 Unknown [id number] 2.16.840.1.443215.3.579.2. 1258 1959 Unknown [id number] 2.16.840.1.715864.3.579.2. 1258 1959 Unknown [id number] 2.16.840.1.298461.3.579.2. 1258 1959 Unknown [id number] 2.16.840.1.668207.3.579.2. 1258 1959 Unknown [id number] 2.16.840.1.874576.3.579.2. 1258 1959 Unknown [id number] 2.16.840.1.695791.3.579.2. 1258 1959 Self-pay [id number] 1959 Worker's Compensation [id number] Unknown [id number] 2.16.840.1.404037.3.579.2. 593 Unknown [id number] 2.16.840.1.808726.3.579.2. 531 Unknown [id number] 2.16.840.1.972703.3.579.2. 531 Unknown [id number] 2.16.840.1.616345.3.579.2. 531 Unknown [id number] 2.16.840.1.322042.3.579.2. 531 Social History Date Type Detail Facility Start: 12-25-2022 End: 01-17-2023 Consumes alcohol occasionally Consumes alcohol occasionally [facility] Comment on above: COFFEE ONCE IN A WHI LE; occasionally; Start: 08-27-2021 End: 04-05-2022 Tobacco smoking status NHIS Never smoked tobacco [facility] Start: 1960 Sex Assigned At Not on file [facility] Start: 11-09-2021 End: 04-05-2022 Exposure to SARS-CoV-2 (event) Not sure [facility] Start: 08-27-2021 End: 04-05-2022 Tobacco use and exposure Smokeless tobacco non-user [facility] Start: 12-03-2021 End: 09-21-2024 Alcohol intake Ex-drinker (finding) [facility] Start: 12-25-2021 End: 01-04-2022 Exposure to SARS-CoV-2 (event) Unable to assess [facility] Work Phone: Start: 12-25-2022 End: 01-17-2023 Tobacco use panel [facility] Start: 06-01-2021 National Score (1-10 0), lower number is lower risk 87 [facility] Start: 1960 Sex Assigned At Male F [facility] Start: 06-09-2024 End: 03-01-2025 Alcoholic beverage intake Current drinker of alcohol (finding) [facility] Within the last year , have you been afraid of your partner or ex-partner? No [facility] Do you belong to any clubs or organizations such as latter-day groups, unions, fraternal or athletic groups, or school groups? Yes [facility] Are you now , , , , never or living with a partner? [facility] How often to you hav e a drink containing alcohol? 2-4 times a month [facility] How many standard dr inks containing alcohol do you have on a typical day? 1 or 2 [facility] How often do you hav e 6 or more drinks on 1 occasion? Never [facility] Do you feel stress - tense, restless, nervous, or anxious, or unable to sleep at night because your mind is troubled all the time - these days [OSQ] Only a little [facility] (I/We) worried [facility] (my/our) food would run out before (I/we) got money to buy more. Never true [facility] Start: 08-06-2023 Alcohol Comment Caffeine intak e: 1-2 cups per day [facility] Start: 12-07-2024 End: 01-21-2025 Sex Male (finding) [facility] Functional Status Date Assessment Result Facility 03-01-2025 Patient Health Quest ionnaire 2 item (PHQ-2) [Reported] [facility] 12-04-2021 Are you deaf, or do you have serious difficulty hearing No 12/04/2021 11:08 AM EDT Jose Tidwell RN No [facility] 12-04-2021 Are you blind, or do you have serious difficulty seeing, even when wearing glasses No 12/04/2021 11:08 AM EDT Jose Tidwell RN No [facility] 12-04-2021 Do you have serious difficulty walking or climbing stairs No 12/04/2021 11:08 AM EDT Jose Tidwell RN No [facility] 12-04-2021 Do you have difficul ty dressing or bathing No 12/04/2021 11:08 AM EDT Jose Tidwell RN No [facility] 12-04-2021 Because of a physica l, mental, or emotional condition, do you have difficulty doing errands alone such as visiting a physician's office or shopping No 12/04/2021 11:08 AM EDT Jose Tidwell RN No [facility] Mental Status Date Assessment Result Facility 12-04-2021 Because of a physica l, mental, or emotional condition, do you have serious difficulty concentrating, remembering, or making decisions No 12/04/2021 11:08 AM EDJose Fabian RN No [facility] Clinical Notes 11-30-2021 to 04-04-2025 Ita Tuttle MD - 04/04/2025 2:31 PM EDTTelephone Encounter - DOROTHEA Liang - 03/17/2025 1:21 PM EDTTelephone Encounter - DOROTHEA Liang - 03/17/2025 1:21 PM EDT Note Date & Type Note Facility 04-04-2025 History of Presen t illness Narrative Images from the original note were not included. [facility] [place] Sissy Zepeda Department of Cardiovascular Medicine SECTION OF REGIONAL CARDIOLOGY OUTPATIENT VISIT DATE April 04, 2025 OUTPATIENT VISIT TYPE ESTABLISHED HISTORY OF PRESENT ILLNESS: Darius Valera is a (an) 64 year old year old male who is here today for follow-up. Was diagnosed with CLL. Since last visit denies chest pain, SOB, palpitations or lightheadedness. Last OV 01/30/24 Darius Valera is a (an) 63 year old year old male who is here today for follow-up. Since last visit denies chest pain, SOB, palpitations or lightheadedness. Was seen by EP and noted to have elevated BP. Was added on Bystolic. Darius Valera is a (an) 62 year old year old male who is here today for follow-up. Since last visit denies chest pain, SOB, palpitations or lightheadedness. Was taken off Eliquis by EP. Darius Valera is a (an) 62 year old year old male who is here today for follow up. Since last visit denies chest pain, SOB, TAY, palpitations or edema. He brought his BP log book which showed occasional elevated BP at home in the morning.Had some labs at work. Darius Valera is a 62 year old male here today for follow up from [place], [place]. Has h/o AF s/p ablation, HTN, DMITRY, tachycardia induced CMP, and CHF. On Eliquis, Nifedipine XL, Valsartan/HCTZ added on Doxazosin. Doxazocin increased to 2 mg but has been using only 1 mg daily. Continue to have BP spikes above 150s. Sotalol was discontinued. He followed before with a local dairy consultant Dr Hooks. Since last visit denies chest pain or SOB, orthopnea or palpitations Had CT of chest which showed atherosclerosis with mild aortic root ectasia 4.3 cm PAST MEDICAL HISTORY[1] No past surgical history on file. FAMILY HISTORY[2] SOCIAL HISTORYSOCIAL HISTORY[3] ALLERGIES: Patient has no known allergies. CURRENT MEDICATIONS: CURRENT MEDICATIONS[4] REVIEW OF SYSTEMS: CARDIOVASCULAR: See present history. PULMONARY:No cough or sputum production GASTROINTESTINAL:no bowel changes. GENITOURINARY:no urinary symptoms. ENDOCRINE:no chronic fatigue, significant weight loss/gain, heat/cold intolerance. NEUROLOGICAL:no focal weakness, focal sensory loss, headache, visual changes, seizure activity, ataxia, speech/language loss. RHEUMATOLOGY:no joint swelling INFECTION:no fevers, chills, rigors or night sweats. SKIN:no rash HEMATOLOGY:CLL I have personally interviewed, confirmed and edited the above information if obtained by others - Bill Tuttle M.D. PHYSICAL EXAMINATION: Last 3 Encounter BP Readings: Date: BP: 09/21/2024 142/82 01/30/2024 148/80 10/03/2023 136/76 Last 3 Encounter Pulse Readings: Date: Pulse: 01/30/2024 66 10/03/2023 59 09/12/2023 74 Last 3 Encounter Wt Readings: Date: Wt: 09/21/2024 93 kg (205 lb 0.4 oz) 01/30/2024 92.6 kg (204 lb 2.3 oz) 10/03/2023 91.2 kg (201 lb 1 oz) BP 132/88 Pulse 76 Ht 6' 0 (1.83m) Wt 195 lb 5.2 oz (88.6kg) BMI 26.49 kg/(m^2). GENERAL: no acute distress HEENT:Atraumatic, normocephalic. NECK: No JVD, no HJR, no carotid bruit, normal carotid upstrokes, no thyromegaly CARDIAC: Regular rhythm. Normal S1 and S2. No murmur, rub or gallop. LUNGS: clear to auscultation, no rhonchi, no rales, no wheezes ABDOMEN: Bowel sounds normal. EXTREMITIES: No peripheral edema NEURO: Oriented to person, place, and time. Appropriate and cooperative, no gross deficit. LABS: Cholesterol, Total (mg/dL) Date Value 04/01/2022 173 HDL Cholesterol (mg/dL) Date Value 04/01/2022 52 LDL Cholesterol, Calculated (mg/dL) Date Value 04/01/2022 104 Triglyceride (mg/dL) Date Value 04/01/2022 85 No results found for: NMRTOT AST (U/L) Date Value 04/01/2022 23 ALT (U/L) Date Value 04/01/2022 19 No results found for: CK No results found for: INR No results found for: TSH No results found for: BNP No results found for: PBNP Hemoglobin (g/dL) Date Value 12/03/2021 16.4 Hematocrit (%) Date Value 12/03/2021 48.3 WBC (k/uL) Date Value 12/03/2021 9.10 Platelet Count (k/uL) Date Value 12/03/2021 129 Glucose (mg/dL) Date Value 10/17/2022 92 Potassium (mmol/L) Date Value 10/17/2022 4.4 Sodium (mmol/L) Date Value 10/17/2022 140 Chloride (mmol/L) Date Value 10/17/2022 101 CO2 (mmol/L) Date Value 10/17/2022 30 Creatinine (mg/dL) Date Value 10/17/2022 1.01 Creatinine (POCT) (mg/dL) Date Value 03/22/2022 0.90 BUN (mg/dL) Date Value 10/17/2022 22 Anion Gap (mmol/L) Date Value 10/17/2022 9 Calcium, Total (mg/dL) Date Value 10/17/2022 9.4 CARDIOVASCULAR MEDICINE TESTING: CT pulmonary 03/22/22 The aortic valve is trileaflet, and free from calcifications. Mild aortic root ectasia at 4.3 cm. The visualized portions of the ascending and descending thoracic aorta are of normal size. The aortic arch is not included in this study. There is no acute aortic pathology, such as dissection, intramural hematoma, or contained rupture. The coronary arteries have normal origins and courses. There are moderate coronary calcifications, though this study was not optimized for coronary artery evaluation. Outside lipids 12/27/22 TC 183 TG 44 HDL 70 LDL 104 EKG 04/04/25 Echo 07/31/23 CONCLUSIONS: - Exam indication: Abnormal ECG - The left ventricle is normal in size. Left ventricular systolic function is normal. EF = 53 5% (2D biplane) - The right ventricle is normal in size. Right ventricular systolic function is normal. - The left atrial cavity is mildly dilated. - There are no significant valvular abnormalities. - The visualized aorta is borderline dilated with a maximal dimension of 3.9 cm. - Exam was compared with the prior echocardiographic exam performed on 03/22/2022. There is no significant change. Enrollment Dates: 09/12/2023-09/25/2023 IRHYTHM FINDINGS: Patient had a min HR of 44 bpm, max HR of 185 bpm, and avg HR of 68 bpm. Predominant underlying rhythm was Sinus Rhythm. First Degree AV Block was present. 3 Ventricular Tachycardia runs occurred, the run with the fastest interval lasting 4 beats with a max rate of 185 bpm, the longest lasting 17.3 secs with an avg rate of 129 bpm. 4 Supraventricular Tachycardia runs occurred, the run with the fastest interval lasting 7 beats with a max rate of 146 bpm, the longest lasting 8 beats with an avg rate of 136 bpm. Isolated SVEs were rare (<1.0%), SVE Couplets were rare (<1.0%), and SVE Triplets were rare (<1.0%). Isolated VEs were occasional (1.4%, 23914), VE Couplets were rare (<1.0%, 56), and VE Triplets were rare (<1.0%, 1). Ventricular Bigeminy and Trigeminy were present. No symptoms reported. ASSESSMENT/PLAN: 1. PAF s/p Ablation 12/03/[address] Sena, HTN, DMITRY, tachycardia induced CMP with improved fx, CHF, DMITRY, Atherosclerosis with coronary calcification on CT, Aortic root ectasia/dilatation 4.3 cm, CLL. - Patient appears volume compensated on today's exam. - On Valsartan/HCTZ, Nifedipine (did not tolerate higher than 30 mg daily >caused ankle edema), Doxazosin and Bystolic - S/p DCC by his local dairy consultant (Dr Castle) and subsequent ablation by EP (Dr Sena). - Negative outside stress EKG for ischemia 03/22/2020 - Update echo - May use one supplemental Mg OTC daily to try for leg cramps - Most recent renal fx reviewed This note was partially generated using [employer] voice recognition system, and there may be some incorrect words, spellings, and punctuation that were not noted in checking the note before saving. Some elements copied from my previous notes which have been updated as appropriate and reflect current medical decision making from today Bill Tuttle M.D., Miguel CONTACT INFORMATION: Shelbi Tuttle M.D., Miguel. Airport Traffic Controller Clinical safety net maker [facility] Staff Credit Or Loans Officer Timothy Diaz [facility] Mail Code [id number] [facility] [place] [place] [address] CC: To use this Smartlink, specify the provider ID whose address you want to display, e.g., .PROVADDR[1 (where 1 is the provider ID). [1] No past medical history on file. [2] No family history on file. [3] Social History Tobacco Use Smoking status: Never Smokeless tobacco: Never Substance Use Topics Alcohol use: Not Currently Drug use: Never [4] Current Outpatient Medications Medication Sig NIFEdipine XL (ADALAT CC) 30 mg 24 hr tablet Take 1 tablet by mouth once daily. nebivolol (BYSTOLIC) 5 mg tablet TAKE 1 TABLET BY MOUTH EVERY DAY doxazosin (CARDURA) 4 mg tablet TAKE 1 TABLET BY MOUTH EVERYDAY AT BEDTIME meloxicam (MOBIC) 15 mg tablet TAKE 1 TABLET (15 MG) BY MOUTH DAILY NEEDED FOR MILD PAIN Valsartan-hydroCHLOROthiazide 320-25 mg per tablet Take 1 tablet by mouth once daily. aspirin, enteric coated (ASPIRIN, ENTERIC COATED) 81 mg EC tablet Take 81 mg by mouth. sildenafil citrate (VIAGRA ORAL) Take by mouth as needed. No current facility-administered medications for this visit. documented in this encounter [facility] 03-17-2025 Telephone encount er Note My Chart Message. [facility] 03-17-2025 Miscellaneous Notes Formattin g of this note might be different from the original. My Chart Message. documented in this encounter [facility] 03-01-2025 History of Presen t illness Narrative Images from the original note were not included. Subjective Patient ID: Darius Valera is a 64 y.o. male who presents for wellness. Subjective Darius Valera is a 64 y.o. male and is here for a comprehensive physical exam. The patient reports off/on hands and legs cramping, he does drink 100+ oz of water daily, does always drink liquid IV and zero gatorade. He states he has been having this for years but over the past 6 months he feels it is getting worse, hands are cramping up daily but he leg are mostly just at night. Still goes to the gym every morning. Does still have some fatigue. States he will sit down to watch TV and fall asleep. Over the past 2 weeks, how often have you been bothered by any of the following problems? Little interest or pleasure in doing things: Not at all Feeling down, depressed, or hopeless: Not at all Patient Health Questionnaire-2 Score: 0 Current Outpatient Medications on File Prior to Visit Medication Sig Dispense Refill Ascorbic Acid (vitamin C) 250 MG tablet Take 250 mg by mouth Daily b complex vitamins capsule Take 1 capsule by mouth Daily cholecalciferol (Vitamin D-3) 25 MCG tablet Take 25 mcg by mouth Daily doxazosin (Cardura) 4 MG tablet Take 1 tablet by mouth at bedtime nebivolol (Bystolic) 5 MG tablet Take 5 mg by mouth Daily NIFEdipine CC (Adalat CC) 30 MG 24 hr tablet Take 30 mg by mouth in the morning. Take before meals. Do not crush, chew, or split. sildenafil (Viagra) 100 MG tablet Take 100 mg by mouth Daily as needed for erectile dysfunction [DISCONTINUED] valsartan-hydroCHLOROthiazide (Diovan-HCT) 320-25 MG tablet Take 1 tablet by mouth Daily No current facility-administered medications on file prior to visit. I have reviewed and reconciled the history and medication list with the patient today. No Known Allergies Social History Tobacco Use Smoking status: Never Smokeless tobacco: Never Vaping Use Vaping status: Never Used Substance Use Topics Alcohol use: Yes Comment: Caffeine intake: 1-2 cups per day Drug use: Never Family History Problem Relation Name Age of Onset Cancer Mother Merry Valera Past Medical History: Diagnosis Date Atrial fibrillation (HCC) COVID-19 08/05/2023 Hydronephrosis 04/14/2023 Hyperlipidemia Hypertension Kidney stone 04/14/2023 Mixed hyperlipidemia 08/05/2023 DMITRY (obstructive sleep apnea) Sleep apnea Tubular adenoma polyp of rectum 2019 Ureteral stone 02/09/2024 Past Surgical History: Procedure Laterality Date COLONOSCOPY 2019 COLONOSCOPY 2013 KNEE ARTHROSCOPY W/ DEBRIDEMENT Right 08/13/2024 JAB Visit Vitals BP 132/84 Pulse 72 Resp 16 Ht 6' Wt 199 lb 6.4 oz SpO2 98% BMI 27.04 kg/m Smoking Status Never BSA 2.14 m Review of Systems Constitutional: Positive for fatigue. Negative for chills and fever. HENT: Negative for congestion, ear pain, rhinorrhea, sinus pressure and sore throat. Eyes: Negative for pain, discharge and redness. Respiratory: Negative for cough, shortness of breath and wheezing. Cardiovascular: Negative for chest pain, palpitations and leg swelling. Gastrointestinal: Negative for abdominal pain, constipation, diarrhea, nausea and vomiting. Genitourinary: Negative for dysuria, frequency and urgency. Musculoskeletal: Positive for myalgias (Cramping). Negative for arthralgias and back pain. Skin: Negative for rash. Neurological: Negative for dizziness, numbness and headaches. Psychiatric/Behavioral: Negative for confusion, dysphoric mood and sleep disturbance. Objective Physical Exam Constitutional: General: He is not in acute distress. Appearance: Normal appearance. HENT: Head: Normocephalic and atraumatic. Right Ear: Tympanic membrane and ear canal normal. Left Ear: Tympanic membrane and ear canal normal. Nose: Nose normal. Mouth/Throat: Mouth: Mucous membranes are moist. Pharynx: Oropharynx is clear. Eyes: General: No scleral icterus. Extraocular Movements: Extraocular movements intact. Conjunctiva/sclera: Conjunctivae normal. Pupils: Pupils are equal, round, and reactive to light. Cardiovascular: Rate and Rhythm: Normal rate and regular rhythm. Pulses: Normal pulses. Pulmonary: Effort: Pulmonary effort is normal. Breath sounds: Normal breath sounds. No wheezing, rhonchi or rales. Abdominal: General: Bowel sounds are normal. There is no distension. Palpations: Abdomen is soft. Tenderness: There is no abdominal tenderness. There is no guarding. Musculoskeletal: General: No swelling, tenderness, deformity or signs of injury. Normal range of motion. Cervical back: Normal range of motion. No tenderness. Lymphadenopathy: Cervical: No cervical adenopathy. Skin: General: Skin is warm and dry. Findings: No erythema. Neurological: General: No focal deficit present. Mental Status: He is alert and oriented to person, place, and time. Cranial Nerves: No cranial nerve deficit. Sensory: No sensory deficit. Motor: No weakness. Coordination: Coordination normal. Gait: Gait normal. Psychiatric: Mood and Affect: Mood normal. Behavior: Behavior normal. Thought Content: Thought content normal. Judgment: Judgment normal. Assessment/Plan Diagnoses and all orders for this visit: Wellness examination - TSH W/REFLEX TO FT4 - Hemoglobin A1c - Lipid panel - Vitamin D 25 hydroxy Total - PSA Wellness form reviewed in detail with the patient. Encouraged patient to stay up to date on immunizations and preventative testing. Encouraged healthy diet, stay active. Will continue with yearly wellness exams. Muscle cramping - TSH W/REFLEX TO FT4 - Hemoglobin A1c - Vitamin D 25 hydroxy Total Will have patient hold the hydrochlorothiazide portion of his BP medication and will see if symptoms resolve. Continue to stay hydrated and balance with electrolytes. Will check TSH and Vitamin D with upcoming labs. Primary hypertension - Lipid panel - valsartan (Diovan) 320 MG tablet; Take 1 tablet (320 mg) by mouth Daily Patient's blood pressure is currently stable. Will continue to monitor at home with discontinuation of hydrochlorothiazide. Contact office with any concerns. Goal BP remains less than 130/80. Obstructive sleep apnea syndrome Patient is compliant with CPAP usage and perceives benefit from treatment. Treatment has been effective in controlling the patient's symptoms of Sleep Apnea. Will continue to monitor with routine follow up appointments. Lymphocytosis The patient is seeing a ophthalmic medical technologist for this condition, treatment is deferred to that specialist. Correspondence from that specialist and any available testing were reviewed during today's visit. Arteriosclerotic vascular disease The patient is seeing a ophthalmic medical technologist for this condition, treatment is deferred to that specialist. Correspondence from that specialist and any available testing were reviewed during today's visit. Erectile dysfunction, unspecified erectile dysfunction type This is a chronic medical condition that is stable since last assessment. Lung nodule Seen on CT from 2021. No follow up imaging was recommended at that time. History of nephrolithiasis H/o with no current complaints. Continue to stay hydrated. Will continue to monitor. History of COVID-19 H/o with no current complaints. Other thrombophilia (HHS-HCC) The patient is seeing a ophthalmic medical technologist for this condition, treatment is deferred to that specialist. Correspondence from that specialist and any available testing were reviewed during today's visit. Thoracic aortic ectasia The patient is seeing a ophthalmic medical technologist for this condition, treatment is deferred to that specialist. Correspondence from that specialist and any available testing were reviewed during today's visit. History of colon polyps Will continue to monitor with routine screenings. PONV (postoperative nausea and vomiting) H/o, pt will need to inform anesthesia should he have any additional surgeries. IFG (impaired fasting glucose) - Hemoglobin A1c Will check [id number] upcoming fasting labs. Screening for malignant neoplasm of prostate - PSA Will check PSA with upcoming fasting labs. Follow up for Medicare Wellness Visit. documented in this encounter [facility] 02-19-2025 Evaluation note Diagnosis Onset Date Resolution Contact dermatitis acute January 242024 9:18am [facility] Work Phone: [phone]) 169-613905-12-2025 Telephone encounter Note* Telephone Encounter - Fabiola Doty OCCA - 01/03/2025 10:46 AM EDT Received request for refill of the following medications: Requested Prescriptions Pending Prescriptions Disp Refills NIFEdipine XL (ADALAT CC) 30 mg 24 hr tablet 90 tablet 3 Sig: Take 1 tablet by mouth once daily. Patient requested a 90 day refill. Pharmacy verified and updated accordingly. Patient was last seen in cardiology office: 09-21-2024. Upcoming appointment scheduled: 04-04-2025. Labs: Hemoglobin (g/dL) Date Value 12/03/2021 16.4 Hematocrit (%) Date Value 12/03/2021 48.3 WBC (k/uL) Date Value 12/03/2021 9.10 Platelet Count (k/uL) Date Value 12/03/2021 129 Creatinine Date Value Ref Range Status 10/17/2022 1.01 0.73 - 1.22 mg/dL Final 04/01/2022 0.98 0.73 - 1.22 mg/dL Final [facility]05-12-2025 Miscellaneous Notes* Telephone Encounter - Fabiola Doty OCCA - 01/03/2025 10:46 AM EDT Received request for refill of the following medications: Requested Prescriptions Pending Prescriptions Disp Refills NIFEdipine XL (ADALAT CC) 30 mg 24 hr tablet 90 tablet 3 Sig: Take 1 tablet by mouth once daily. Patient requested a 90 day refill. Pharmacy verified and updated accordingly. Patient was last seen in cardiology office: 09-21-2024. Upcoming appointment scheduled: 04-04-2025. Labs: Hemoglobin (g/dL) Date Value 12/03/2021 16.4 Hematocrit (%) Date Value 12/03/2021 48.3 WBC (k/uL) Date Value 12/03/2021 9.10 Platelet Count (k/uL) Date Value 12/03/2021 129 Creatinine Date Value Ref Range Status 10/17/2022 1.01 0.73 - 1.22 mg/dL Final 04/01/2022 0.98 0.73 - 1.22 mg/dL Final [facility] History of Present illness Narrative* Eulalio Irby, - 12/09/2024 3:45 PM EDT Images from the original note were not included. [facility] is a 64 y.o. male who presents for Pain of the Right Knee HPI: History of Present Illness The patient is a 64-year-old male who presents today to follow up on his right knee. He underwent an arthroscopic partial medial meniscectomy 4 months ago, on 08/13/2024. He received a cortisone injection in 09/2024. Significant improvement in his condition is reported, attributed to the physical therapy he has been undergoing. Diligence in performing prescribed exercises daily is noted, contributing to his recovery. Use of Celebrex 200 mg alleviates the tightness in his knee, but uncertainty about the duration of its use is expressed. He has not attempted to golf yet. SUBJECTIVE: MEDICATIONS: Current Outpatient Medications Medication Instructions b complex vitamins capsule 1 capsule, Daily celecoxib (CELEBREX) 200 mg, Oral, Daily cholecalciferol (VITAMIN D-3) 25 mcg, Daily doxazosin (Cardura) 4 MG tablet 1 tablet, Nightly nebivolol (BYSTOLIC) 5 mg, Daily NIFEdipine CC (ADALAT CC) 30 mg, Daily before breakfast sildenafil (VIAGRA) 100 mg, Daily PRN valsartan-hydroCHLOROthiazide (Diovan-HCT) 320-25 MG tablet 1 tablet, Daily vitamin C 250 mg, Daily ALLERGIES: No Known Allergies SURGICAL HISTORY: Past Surgical History: Procedure Laterality Date COLONOSCOPY 2019 COLONOSCOPY 2014 KNEE ARTHROSCOPY W/ DEBRIDEMENT Right 08/13/2024 [facility] FAMILY HISTORY: Family History Problem Relation Name Age of Onset Cancer Mother Merry Valera SOCIAL HISTORY: Social History Tobacco Use Smoking status: Never Smokeless tobacco: Never Vaping Use Vaping status: Never Used Substance Use Topics Alcohol use: Yes Comment: Caffeine intake: 1-2 cups per day Drug use: Never Depression: Not at risk (11/09/2024) PHQ-2 PHQ-2 Score: 0 REVIEW OF SYMPTOMS: Review of Systems The review of systems, history and current medications list are all reviewed today. OBJECTIVE: Visit Vitals Ht 6' Wt 208 lb BMI 28.21 kg/m Smoking Status Never BSA 2.19 m Physical Exam Alert and oriented, no acute distress. Mood and affect are appropriate. Ambulating independently. Gait is nonantalgic. Right Knee: - full extension, Flexion to 125 degrees. - Quadriceps strength improving but still some atrophy noted. - Tenderness in the hamstring area with poor flexibility - portals well healed - no effusion - 5/5 strength Ortho Exam Results ASSESSMENT AND PLAN: I reviewed the history, physical exam, diagnostic studies, and diagnosis with the patient. Assessment & Plan 1. Post-operative status following arthroscopic partial medial meniscectomy: Continue with stretching exercises and use a massage roller on hamstrings for a few minutes. 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 Apply ice to the knee for 20 to 30 minutes post-golfing, even if feeling fine. Take Celebrex 200 mg as needed, particularly on days when golfing. Avoid deep squatting and full leg extensions, sticking to a safer range of motion for leg exercises (0-40 degrees). Inform the clinic if the condition worsens over time. Follow-up: prn. Contact the clinic if any issues arise. A total of 20 to 29 minutes was spent on this patient encounter which included chart review, check in, nurse triage, history taking, physical examination, diagnostic study review, patient counseling and discussion, entering information into the patient's medical record, and coordinating patient care There are no diagnoses linked to this encounter. Eulalio Irby D.O. Attestation This note was created using voice recognition through [employer] documented in this encounterBarton County [facility] [id number] History of Present illness Narrative* JUS Caraballo - 09/30/2024 3:30 PM ESTAssociated Order(s): L Inj/Asp: R knee Post-Procedure Diagnose(s): Right knee pain, unspecified chronicity L Inj/Asp: R knee on 09/30/2024 4:29 PM Indications: pain Details: 25 G needle, lateral approach Medications: 1.5 mg betamethasone acetate-betamethasone sodium phosphate 6 (3-3) MG/ML Consent was given by the patient. * Eulalio Irby DO - 09/30/2024 3:30 PM EST Images from the original note were not included. @ENCDATE@ [facility] is a 64 y.o. male who presents for Knee Pain and Post-op of the Right Knee and Pain of the Left Hand HPI: History of Present Illness The patient is 7 weeks status post right knee arthroscopy, partial medial meniscectomy, and chondroplasty, with the surgery performed on 08/13/2024. He presents for evaluation of persistent pain and swelling in the right knee. is present. Three weeks ago, he experienced an episode where his knee was bent upon waking and it took him approximately 3 minutes to straighten it. This was followed by an incident of knee buckling. On Friday night, he experienced a fall while ascending stairs, leading to persistent pain. His knee gave out, resulting in the fall. He reports significant swelling in his right knee, which was not present 2 to3 days ago. The pain is predominantly localized to the medial aspect of the knee, with occasional throbbing sensations throughout the entire knee. He has been using a wrap with Velcro for support dueto his occupation that requires prolonged standing. He has been applying ice to the affected area ni [facility] after work, which provided relief until the recent fall. He has not tried icing since the fall as it irritates him. Heat application exacerbates the discomfort. He is not diabetic. He has attempted to manage the pain with ibuprofen, but without success. SUBJECTIVE: MEDICATIONS: Current Outpatient Medications Medication Instructions b complex vitamins capsule 1 capsule, Daily benzonatate (TESSALON) 200 mg, Oral, 3 times daily PRN, Do not crush or chew. celecoxib (CELEBREX) 100 mg, Oral, 2 times daily, Take as needed for pain cholecalciferol (VITAMIN D-3) 25 mcg, Daily doxazosin (Cardura) 4 MG tablet 1 tablet, Nightly gabapentin (NEURONTIN) 300 mg, Oral, Nightly nebivolol (BYSTOLIC) 5 mg, Daily NIFEdipine CC (ADALAT CC) 30 mg, Daily before breakfast predniSONE (Deltasone) 10 MG tablet As directed orally - Take 6 tabs day 1 and 2, 5 tabs day 3 and 4, 4 tabs day 5 and 6, 3 tabs day 7 and 8, 2 tabs day 9 and 10, and 1 tab day 11 and 12. sildenafil (VIAGRA) 100 mg, Daily PRN valsartan-hydroCHLOROthiazide (Diovan-HCT) 320-25 MG tablet 1 tablet, Daily vitamin C 250 mg, Daily ALLERGIES: No Known Allergies SURGICAL HISTORY: Past Surgical History: Procedure Laterality Date COLONOSCOPY 2019 COLONOSCOPY 2013 KNEE ARTHROSCOPY W/ DEBRIDEMENT Right 08/13/2024 [facility] REVIEW OF SYMPTOMS: The review of systems, history and current medications list are all reviewed today. OBJECTIVE: Visit Vitals Temp 97.4 F Ht 6' Wt 209 lb BMI 28.35 kg/m Smoking Status Never BSA 2.19 m Physical Exam Alert and oriented, no acute distress. Mood and affect are appropriate. Ambulating independently. Gait is antalgic. RIGHT KNEE Portals well healed. Mild effusion. No erythema. Swelling extending into leg and ankle. ROM preserved. Ligaments stable. Negative homans. NV status unchanged Able to make complete fist with left hand. Flexion/extension DIP and PIP joints off all fingers intact. Results Three views, bilateral PA weight-bearing, sunrise, lateral of the right knee(s) taken today and saved to the permanent medical record are reviewed. Mild medial compartment joint space narrowing. No acute osseous abnormalities. Three views of the left hand(s), PA/lateral/oblique, taken today and saved to the permanent medicalrecord. Fracture distal phalanx middle finger well healed with advanced DIP joint arthritis. ASSESSMENT AND PLAN: I reviewed the history, physical exam, diagnostic studies, and diagnosis with the patient. Assessment & Plan 1. Postoperative status following right knee arthroscopy, partial medial meniscectomy, and chondroplasty. A prescription for prednisone was provided, with instructions to take 6 pills today and continue the taper. Gabapentin was prescribed for nighttime use to help with pain and sleep, with instructions to take it an hour before bedtime. He can continue taking [place] if needed, but not at the same time as gabapentin. Compression stockings extending to the mid-thigh were recommended for swelling management. Light massage therapy was approved. The skin over the superior lateral aspect of the right knee(s) was prepared with alcohol and Betadine. The skin and subcutaneous tissues were anesthetized with 1% plain Lidocaine with a 25-gauge 1-1/2 inch needle. An 18-gauge needle was then inserted into the suprapatellar pouch and 6 mL of clear, yellow, synovial fluid was aspirated. A mixture of 1.5 mL of betamethasone and 1.5 mL of 1% plain lidocaine was then injected into the knee through the same needle. The patient tolerated the injections well. A Band-Aid was applied. Follow-up The patient will follow up in 1 month. Diagnoses and all orders for this visit: Left hand pain - XR hand 3+ views left S/P right knee arthroscopy - gabapentin (Neurontin) 300 MG capsule; Take 1 capsule (300 mg) by mouth at bedtime Right knee pain, unspecified chronicity - XR knee 3 views right - L Inj/Asp: R knee - predniSONE (Deltasone) 10 MG tablet; As directed orally - Take 6 tabs day 1 and 2, 5 tabs day 3 and 4, 4 tabs day 5 and 6, 3 tabs day 7 and 8, 2 tabs day 9 and 10, and 1 tab day 11 and 12. Eulalio Irby D.O. Attestation This note was created using voice recognition through [employer] documented in this encounterBarton County Memorial [id number] Telephone encounter Note* Telephone Encounter - Bria Alvarado LPN - 09/28/2024 2:16 PM EST Received request for refill of the following medications: Requested Prescriptions Pending Prescriptions Disp Refills nebivolol (BYSTOLIC) 5 mg tablet [Pharmacy Med Name: NEBIVOLOL 5 MG TABLET] 90 tablet 3 Sig: TAKE 1 TABLET BY MOUTH EVERY DAY Patient requested a 90 day refill. Pharmacy verified and updated accordingly. Patient was last seen in cardiology office: 09/21/2024. Upcoming appointment scheduled: 04/04/2025. Labs: Hemoglobin (g/dL) Date Value 12/03/2021 16.4 Hematocrit (%) Date Value 12/03/2021 48.3 WBC (k/uL) Date Value 12/03/2021 9.10 Platelet Count (k/uL) Date Value 12/03/2021 129 Creatinine Date Value Ref Range Status 10/17/2022 1.01 0.73 - 1.22 mg/dL Final 04/01/2022 0.98 0.73 - 1.22 mg/dL Final [facility]02-04-2025 Miscellaneous Notes* Telephone Encounter - Bria Alvarado LPN - 09/28/2024 2:16 PM EST Received request for refill of the following medications: Requested Prescriptions Pending Prescriptions Disp Refills nebivolol (BYSTOLIC) 5 mg tablet [Pharmacy Med Name: NEBIVOLOL 5 MG TABLET] 90 tablet 3 Sig: TAKE 1 TABLET BY MOUTH EVERY DAY Patient requested a 90 day refill. Pharmacy verified and updated accordingly. Patient was last seen in cardiology office: 09/21/2024. Upcoming appointment scheduled: 04/04/2025. Labs: Hemoglobin (g/dL) Date Value 12/03/2021 16.4 Hematocrit (%) Date Value 12/03/2021 48.3 WBC (k/uL) Date Value 12/03/2021 9.10 Platelet Count (k/uL) Date Value 12/03/2021 129 Creatinine Date Value Ref Range Status 10/17/2022 1.01 0.73 - 1.22 mg/dL Final 04/01/2022 0.98 0.73 - 1.22 mg/dL Final documented in this encounterMer[facility]01[facility] Instructions* Patient Instructions* Tony Armstrong PA-C - 09/21/2024 4:57 PM EST Please schedule appt with Dr. Tuttle in 6 months documented in this encounterMercy [facility]01-28-[facility]25 History of Present illness Narrative* Tony Armstrong PA-C - 09/21/2024 4:30 PM EST Images from the original note were not included. [facility] [place] Sissy Zepeda Department of Cardiovascular Medicine SECTION OF CLINICAL CARDIOLOGY OUTPATIENT VISIT DATE September 21, 2024 OUTPATIENT VISIT TYPE ESTABLISHED PRIMARY CARE PHYSICIAN: To use this Smartlink, specify the provider ID whose address you want to display, e.g., .PROVADDR[1(where 1 is the provider ID). CHIEF COMPLAINT: Follow Up HISTORY OF PRESENT ILLNESS: Mr. Valera is a 63 year old male, patient of Dr. Macias who presents today for a cardiovascular medicine follow-up visit. 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 Pt is doing well. Exercises almost daily without difficulty. No CP/SOB/palps/dizziness. Adheres to medications. No LE edema, PND, orthopnea PMH: DMITRY No past medical history on file. No past surgical history on file. SOCIAL HISTORY Social History Tobacco Use Smoking status: Never Smokeless tobacco: Never Substance Use Topics Alcohol use: Not Currently Drug use: Never No family history on file. ALLERGIES No Known Allergies MEDICATIONS: doxazosin (CARDURA) 4 mg tablet TAKE 1 TABLET BY MOUTH EVERYDAY AT BEDTIME meloxicam (MOBIC) 15 mg tablet TAKE 1 TABLET (15 MG) BY MOUTH DAILY NEEDED FOR MILD PAIN Valsartan-hydroCHLOROthiazide 320-25 mg per tablet Take 1 tablet by mouth once daily. NIFEdipine XL (ADALAT CC) 30 mg 24 hr tablet take one tablet by mouth daily nebivolol (BYSTOLIC) 5 mg tablet Take 1 tablet by mouth once daily. aspirin, enteric coated (ASPIRIN, ENTERIC COATED) 81 mg EC tablet Take 81 mg by mouth. sildenafil citrate (VIAGRA ORAL) Take by mouth as needed. REVIEW OF SYSTEMS: ROS is otherwise negative apart from what has been documented in HPI PHYSICAL EXAMINATION: There were no vitals taken for this visit. General: Well appearing, in no acute distress Neck: No jugular venous distention, no carotid bruits Lungs: CTAB Heart: Regular rhythm, S1, S2 present Abdomen: Soft, NT/ND, BS + Extremities: No LE edema, pulses equal CARDIOVASCULAR MEDICINE TESTING: Labs: ECG : ECHO 08/16: CONCLUSIONS: - Exam indication: Abnormal ECG - The left ventricle is normal in size. Left ventricular systolic function is normal. EF = 53 5% (2D biplane) - The right ventricle is normal in size. Right ventricular systolic function is normal. - The left atrial cavity is mildly dilated. - There are no significant valvular abnormalities. - The visualized aorta is borderline dilated with a maximal dimension of 3.9 cm. - Exam was compared with the prior echocardiographic exam performed on 03/22/2022. There is no significant change. Device Check 10/18: Patient Name: Darius Valera : 1960 Ordering Provider: Hrien Sena Indication: I48.19 Other persistent atrial fibrillation Type of Monitor: Extended Monitoring-Zio Patch Enrollment Dates: 09/12/2023-09/25/2023 IRHYTHM FINDINGS: Patient had a min HR of 44 bpm, max HR of 185 bpm, and avg HR of 68 bpm. Predominant underlying rhythm was Sinus Rhythm. First Degree AV Block was present. 3 Ventricular Tachycardiaruns occurred, the run with the fastest interval lasting 4 beats with a max rate of 185 bpm, the longest lasting 17.3 secs with an avg rate of 129 bpm. 4 Supraventricular Tachycardia runs occurred, the run with the fastest interval lasting 7 beats with a max rate of 146 bpm, the longest lasting 8 beats with an avg rate of 136 bpm. Isolated SVEs were rare (<1.0%), SVE Couplets were rare (<1.0%), and SVE Triplets were rare (<1.0%). Isolated VEs were occasional (1.4%, [id number]), VE Couplets were rare (<1.0%, 56), and VE Triplets were rare (<1.0%, 1). Ventricular Bigeminy and Trigeminy were present. No symptoms reported. IMPRESSION/PLAN: HTN - 142/82 in office - cont valsartan/HCTZ 320/25mg, Nifedipine 30 PAF - s/p RFA '22 - c/b tachycardiac induced CM, recovered with LVEF 53% - not on a/c CAC - noted on CT chest '22 - Neg stress '20 - cont ASA RTC with Dr. Tuttle in 6 months CONTACT INFORMATION: Tony Armstrong PA-C Cardiology [id number] [facility] [address] Dept: [phone] [facility] NoteHNO ID: [id number] Author: EBBITT, TONY, PA-C Service: ? Author Type: Physician [employer] Type: Progress Notes Filed: 09/21/2024 17:03 Note Text: [facility] [place] Sissy Zepeda Department of Cardiovascular Medicine SECTION OF CLINICAL CARDIOLOGY OUTPATIENT VISIT DATE September 21, 2024 OUTPATIENT VISIT TYPE ESTABLISHED PRIMARY CARE PHYSICIAN: To use this Smartlink, specify the provider ID whose address you want to display, e.g., .[email or web address][1 (where 1 is the provider ID). CHIEF COMPLAINT: Follow Up HISTORY OF PRESENT ILLNESS: Mr. Valera is a 63 year old male, patient of Dr. Macias who presents today for a cardiovascular medicine follow-up visit. 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 Pt is doing well. Exercises almost daily without difficulty. No CP/SOB/palps/dizziness. Adheres to medications. No LE edema, PND, orthopnea PMH: DMITRY No past medical history on file. No past surgical history on file. SOCIAL HISTORY Social History Tobacco Use Smoking status: Never Smokeless tobacco: Never Substance Use Topics Alcohol use: Not Currently Drug use: Never No family history on file. ALLERGIES No Known Allergies MEDICATIONS: doxazosin (CARDURA) 4 mg tablet TAKE 1 TABLET BY MOUTH EVERYDAY AT BEDTIME meloxicam (MOBIC) 15 mg tablet TAKE 1 TABLET (15 MG) BY MOUTH DAILY NEEDED FOR MILD PAIN Valsartan-hydroCHLOROthiazide 320-25 mg per tablet Take 1 tablet by mouth once daily. NIFEdipine XL (ADALAT CC) 30 mg 24 hr tablet take one tablet by mouth daily nebivolol (BYSTOLIC) 5 mg tablet Take 1 tablet by mouth once daily. aspirin, enteric coated (ASPIRIN, ENTERIC COATED) 81 mg EC tablet Take 81 mg by mouth. sildenafil citrate (VIAGRA ORAL) Take by mouth as needed. REVIEW OF SYSTEMS: ROS is otherwise negative apart from what has been documented in HPI PHYSICAL EXAMINATION: There were no vitals taken for this visit. General: Well appearing, in no acute distress Neck: No jugular venous distention, no carotid bruits Lungs: CTAB Heart: Regular rhythm, S1, S2 present Abdomen: Soft, NT/ND, BS + Extremities: No LE edema, pulses equal CARDIOVASCULAR MEDICINE TESTING: Labs: ECG : ECHO 08/16: CONCLUSIONS: - Exam indication: Abnormal ECG - The left ventricle is normal in size. Left ventricular systolic function is normal. EF = 53 ? 5% (2D biplane) - The right ventricle is normal in size. Right ventricular systolic function is normal. - The left atrial cavity is mildly dilated. - There are no significant valvular abnormalities. - The visualized aorta is borderline dilated with a maximal dimension of 3.9 cm. - Exam was compared with the prior echocardiographic exam performed on 03/22/2022. There is no significant change. Device Check 10/18: Patient Name: Darius Valera : 1960 Ordering Provider: Hiren Sena Indication: I48.19 Other persistent atrial fibrillation Type of Monitor: Extended Monitoring-Zio Patch Enrollment Dates: 09/12/2023-09/25/2023 IRHYTHM FINDINGS: Patient had a min HR of 44 bpm, max HR of 185 bpm, and avg HR of 68 bpm. Predominant underlying rhythm was Sinus Rhythm. First Degree AV Block was present. 3 Ventricular Tachycardia runs occurred, the run with the fastest interval lasting 4 beats with a max rate of 185 bpm, the longest lasting 17.3 secs with an avg rate of 129 bpm. 4 Supraventricular Tachycardia runs occurred, the run with the fastest interval lasting 7 beats with a max rate of 146 bpm, the longest lasting 8 beats with an avg rate of 136 bpm. Isolated SVEs were rare (<1.0%), SVE Couplets were rare (<1.0%), and SVE Triplets were rare (<1.0%). Isolated VEs were occasional (1.4%, [id number]), VE Couplets were rare (<1.0%, 56), and VE Triplets were rare (<1.0%, 1). Ventricular Bigeminy and Trigeminy were present. No symptoms reported. IMPRESSION/PLAN: HTN - 142/82 in office - cont valsartan/HCTZ 320/25mg, Nifedipine 30 PAF - s/p RFA '22 - c/b tachycardiac induced CM, recovered with LVEF 53% - not on a/c CAC - noted on CT chest ' - Neg stress '20 - cont ASA RTC with Dr. Tuttle in 6 months CONTACT INFORMATION: Tony Armstrong PA-C Cardiology [id number] [facility] [address] Dept: [phone] [facility] History of Present illness Narrative* DOROTHEA Liang - 09/15/2024 3:30 PM EST Images from the original note were not included. Subjective Patient ID: Darius Valera is a 63 y.o. male who presents for cough. Darius is present today for evaluation of cough. Admits sinus pressure, post nasal drainage, sore throat at night, nasal congestion, cough dry, wheezing, fatigue. Cough is worse at night. He has been sick for about a week and has not taken anything OTC other than this morning he did take sudafed. They did not help. Has been difficult to use his CPAP. Current Outpatient Medications on File Prior to Visit Medication Sig Dispense Refill Ascorbic Acid (vitamin C) 250 MG tablet Take 250 mg by mouth Daily [] aspirin 81 MG EC tablet Take 1 tablet (81 mg) by mouth Daily 30 tablet 0 b complex vitamins capsule Take 1 capsule by mouth Daily celecoxib (CeleBREX) 100 MG capsule Take 1 capsule (100 mg) by mouth in the morning and 1 capsule (100 mg) before bedtime. Take as needed for pain. 60 capsule 0 cholecalciferol (Vitamin D-3) 25 MCG tablet Take 25 mcg by mouth Daily doxazosin (Cardura) 4 MG tablet Take 1 tablet by mouth at bedtime nebivolol (Bystolic) 5 MG tablet Take 5 mg by mouth Daily NIFEdipine CC (Adalat CC) 30 MG 24 hr tablet Take 30 mg by mouth in the morning. Take before meals.Do not crush, chew, or split.. sildenafil (Viagra) 100 MG tablet Take 100 mg by mouth Daily as needed for erectile dysfunction valsartan-hydroCHLOROthiazide (Diovan-HCT) 320-25 MG tablet Take 1 tablet by mouth in the morning. [DISCONTINUED] aspirin 81 MG EC tablet Take 81 mg by mouth in the morning. No current facility-administered medications on file prior to visit. I have reviewed and reconciled the history and medication list with the patient today. No Known Allergies Social History Tobacco Use Smoking status: Never Smokeless tobacco: Never Vaping Use Vaping status: Never Used Substance Use Topics Alcohol use: Yes Comment: Caffeine intake: 1-2 cups per day Drug use: Never Family History Problem Relation Name Age of Onset Cancer Mother Merry Valera Past Medical History: Diagnosis Date Atrial fibrillation (CMS/HCC) COVID-19 08/05/2023 Hydronephrosis 04/14/2023 Hyperlipidemia (CMS/HCC) Hypertension (CMS/HCC) Kidney stone 04/14/2023 Mixed hyperlipidemia (CMS/HCC) 08/05/2023 DMITRY (obstructive sleep apnea) Sleep apnea Tubular adenoma polyp of rectum 2019 Ureteral stone 02/09/2024 Past Surgical History: Procedure Laterality Date COLONOSCOPY 2019 COLONOSCOPY 2014 KNEE ARTHROSCOPY W/ DEBRIDEMENT Right 08/13/2024 JAB Visit Vitals BP 124/78 Pulse 64 Temp 97.7 F Resp 16 Ht 6' Wt 209 lb 6.4 oz SpO2 98% BMI 28.40 kg/m Smoking Status Never BSA 2.2 m Review of Systems Constitutional: Positive for fatigue. Negative for chills and fever. HENT: Positive for congestion, postnasal drip, sinus pressure, sinus pain and sore throat. Respiratory: Positive for cough and wheezing. Negative for shortness of breath. Cardiovascular: Negative for chest pain, palpitations and leg swelling. Gastrointestinal: Negative for abdominal pain, constipation, diarrhea, nausea and vomiting. Skin: Negative for rash. Objective Physical Exam Constitutional: General: He is not in acute distress. Appearance: He is ill-appearing (Mildly). HENT: Head: Normocephalic and atraumatic. Right Ear: Tympanic membrane and ear canal normal. Left Ear: Tympanic membrane and ear canal normal. Nose: Congestion present. Right Turbinates: Swollen. Left Turbinates: Swollen. Right Sinus: Maxillary sinus tenderness present. Left Sinus: Maxillary sinus tenderness present. Mouth/Throat: Mouth: Mucous membranes are moist. Pharynx: Posterior oropharyngeal erythema (Marked) and uvula swelling (Mild) present. Eyes: General: No scleral icterus. Cardiovascular: Rate and Rhythm: Normal rate and regular rhythm. Heart sounds: No murmur heard. Pulmonary: Effort: Pulmonary effort is normal. No respiratory distress. Breath sounds: No wheezing, rhonchi or rales. Comments: Mildly harsh to auscultation Musculoskeletal: General: No swelling. Lymphadenopathy: Cervical: Cervical adenopathy (Submandibular and tonsillar bilat) present. Skin: General: Skin is warm and dry. Neurological: General: No focal deficit present. Mental Status: He is alert and oriented to person, place, and time. Psychiatric: Mood and Affect: Mood normal. Behavior: Behavior normal. Assessment/Plan Diagnoses and all orders for this visit: Acute non-recurrent maxillary sinusitis - amoxicillin-clavulanate (Augmentin) 875-125 MG tablet; Take 1 tablet (875 mg) by mouth in the morning and 1 tablet (875 mg) in the evening. Take with meals. Do all this for 7 days. Start the above as directed. Reviewed potential s/e with patient. Encouraged probiotic while on antibiotic. Increase water intake, get plenty of rest. Can take OTC allergy medication for symptomatic relief. Tylenol prn. Follow up if no improvement in one week. No follow-ups on file. documented in this encounterBarton County Memorial [id number] History of Present illness Narrative* Eulalio Irby, DO - 08/24/2024 11:15 AM EST Images from the original note were not included. @ENCDATE@ [facility] is a 63 y.o. male who presents for Knee Pain and Post-op of the Right Knee HPI: History of Present Illness The patient is 11 days status post right knee arthroscopy, partial medial meniscectomy, and chondroplasty, with the surgery having been performed on 08/13/2024. He has been diligently applying ice tohis knee and has found relief through a specific exercise involving sliding his heel while seated on the floor. He reports no visible swelling but experiences a sensation of tightness in the knee. His previous gym routine includes using machines for leg exercises, avoiding squats, and performing high repetitions with light weights. He also uses a stationary bike, treadmill, spin bike at home, andelliptical machine. 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 He has been managing the discomfort with Celebrex and has not required any additional anti-inflammatory medications. To alleviate aching when lying on hisside, he uses a pillow for support under his knee or between his legs. He reports persistent pain in his left middle finger, which was previously fractured. He has not undergone any radiographic imaging since the initial injury. He does not report any recent trauma to the hand. Range of motion of his fingers has improved. SUBJECTIVE: MEDICATIONS: Current Outpatient Medications Medication Instructions aspirin 81 mg, Daily aspirin 81 mg, Oral, Daily celecoxib (CELEBREX) 100 mg, Oral, 2 times daily, Take as needed for pain cholecalciferol (VITAMIN D-3) 25 mcg, Daily doxazosin (Cardura) 4 MG tablet 1 tablet, Nightly nebivolol (BYSTOLIC) 5 mg, Daily NIFEdipine CC (ADALAT CC) 30 mg, Daily before breakfast sildenafil (VIAGRA) 100 mg, Daily PRN valsartan-hydroCHLOROthiazide (Diovan-HCT) 320-25 MG tablet 1 tablet, Daily vitamin C 250 mg, Daily ALLERGIES: No Known Allergies SURGICAL HISTORY: Past Surgical History: Procedure Laterality Date COLONOSCOPY 2019 COLONOSCOPY 2013 KNEE ARTHROSCOPY W/ DEBRIDEMENT Right 08/13/2024 RAMON REVIEW OF SYMPTOMS: The review of systems, history and current medications list are all reviewed today. OBJECTIVE: Visit Vitals Temp 97.4 F Ht 6' Wt 202 lb BMI 27.40 kg/m Smoking Status Never BSA 2.16 m Physical Exam Ambulating independently. Gait is nonantalgic. RIGHT KNEE Portals well healed. No erythema. Very mild effusion. Regained preoperative ROM. Negative homans. Ankle PF/DF strong. Foot well perfused LEFT HAND Mild swelling to distal phalanx of middle finger. Nail intact. Flexion at the DIP joint of the ringfinger restored. Ability to flex all fingers has improved. No signs of infection Results ASSESSMENT AND PLAN: I reviewed the history, physical exam, diagnostic studies, and diagnosis with the patient. Assessment & Plan 1. Post-operative status following right knee arthroscopy, partial medial meniscectomy, and chondroplasty. The surgical images were reviewed, showing significant cartilage wear and a meniscus tear, which was addressed by removing the degenerative meniscus tissue. Swelling is minimal. He is advised to continue icing the knee for 4 to 6 weeks and to clean the surgical portals with soap and water. Rehabilitation is not deemed necessary at this time. He is encouraged to perform exercises independently to regain mobility and range of motion, such as leg lifts. Celebrex can be taken as needed for inflammation. Tylenol or Tylenol PM can be used at night if required. He is permitted to engage in upper body exercises at the gym and use a stationary bike. Weight training for the legs should be avoided fora few more weeks. If performing leg press or squats, he should limit the range of motion. He is advised to rest and ice the knee after work. A list of questions was provided by the patient's and I wrote answers to each question for Darius to take home. A repeat x-ray of the left hand will be conducted during the follow-up visit. Follow-up The patient will follow up in 6 weeks. There are no diagnoses linked to this encounter. Eulalio Irby D.O. Attestation This note was created using voice recognition through [employer] documented in this encounterBarton County Memorial [id number] History of Present illness Narrative* Eulalio Irby DO - 07/27/2024 3:30 PM EST Images from the original note were not included. @ENCDATE@ Darius Giles Rl is a 63 y.o. male who presents for Knee Pain of the Right Knee HPI: History of Present Illness The patient is a 63-year-old male here to discuss moving forward with surgery on his right knee. He reports experiencing a sensation of catching in his right knee, which he can alleviate by shaking it out. When his knee is not locked, he has only mild pain. He also mentions a recent fall in [facility], where he tripped on a sidewalk and landed on his elbow, shoulder, and knee. Following this incident, he noticed swelling in his hands, which has since improved. He went to the urgent care in [place] for evaluation the following day. Xrays of the left middle finger demonstrated a fracture of the distal phalanx. He has been wearing an aluminum cagesplint ever since. He noticed decreased mobility in the left ring finger since the fall. SUBJECTIVE: MEDICATIONS: Current Outpatient Medications Medication Instructions aspirin 81 mg, Daily cholecalciferol (VITAMIN D-3) 25 mcg, Daily doxazosin (Cardura) 4 MG tablet 1 tablet, Nightly nebivolol (BYSTOLIC) 5 mg, Daily NIFEdipine CC (ADALAT CC) 30 mg, Daily before breakfast sildenafil (VIAGRA) 100 mg, Daily PRN valsartan-hydroCHLOROthiazide (Diovan-HCT) 320-25 MG tablet 1 tablet, Daily vitamin C 250 mg, Daily ALLERGIES: No Known Allergies SURGICAL HISTORY: Past Surgical History: Procedure Laterality Date COLONOSCOPY 2019 COLONOSCOPY 2013 FAMILY HISTORY: Family History Problem Relation Name Age of Onset Cancer Mother Merry Valera SOCIAL HISTORY: Social History Tobacco Use Smoking status: Never Smokeless tobacco: Never Vaping Use Vaping status: Never Used Substance Use Topics Alcohol use: Yes Comment: Caffeine intake: 1-2 cups per day Drug use: Never Depression: Not on file REVIEW OF SYMPTOMS: Review of Systems The review of systems, history and current medications list are all reviewed today. OBJECTIVE: Visit Vitals Ht 6' Wt 202 lb BMI 27.40 kg/m Smoking Status Never BSA 2.16 m Physical Exam Alert and oriented, no acute distress. Mood and affect are appropriate. Ambulating independently. Gait is nonantalgic. RIGHT KNEE Right knee demonstrates full extension with good quadriceps bulk and tone. Flexion is comparable tothe left knee, approximately 120 to 125 degrees. Tenderness is noted over the medial joint line. Negative lachmans, negative anterior and posterior drawer. No varus or valgus instability. Positive mcm urrays LEFT KNEE The skin is warm, dry and intact. There is no effusion, no erythema. Full flexion and extension. Good quadriceps bulk and tone. There is no tenderness at the patellofemoral joint, medial or lateral joint line, patellar tendon, femoral condyles or proximal tibia. No cruciate or collateral instability. Negative Radhames's. LEFT HAND Swelling and bruising to distal phalanx middle finger. Flexion intact at DIP joint of index, middle, and small fingers. Unable to flex DIP joint of ring finger. Flexion at all PIP joints intact. Eachdigit tested in isolation. No extensor lag at DIP joint of middle finger and active extension at DIP joint is intact. Hand well perfused HEENT The skull is normocephalic. There is no sign of trauma to the head or neck. Hearing is intact for conversational tones. Eye exam reveals conjugate gaze adequate for walking and transfers. CARDIAC The heart is regular rate and rhythm. RESPIRATORY Chest excursion is symmetric and unlabored with lungs clear. ABDOMEN Soft and non-distended. OSTEOPATHIC AND STRUCTURAL EXAM There is no gross evidence of clinically significant kyphosis, or lordosis, or significant leg length discrepancy in a sitting and standing position. Ortho Exam Results Imaging Three views of the left middle finger PA/lateral/oblique, taken at outside facility 07/24/2024 reviewed. Fracture through a posterior osteophyte at the base of the distal phalanx. DIP joint remains congruent with severe arthritic changes at the joint. ASSESSMENT AND PLAN: I reviewed the history, physical exam, diagnostic studies, and diagnosis with the patient. Assessment & Plan 1. Right knee medial meniscus tear with mechanical symptoms The patient would like to proceed with right knee arthroscopy, meniscal work as needed. I explainedthat the decision on how to address the meniscus will be made intraoperatively depending on tear pattern and location. I also explained the different rehab protocols following repair versus partial meniscectomy. I reviewed the risk, benefits, complications, alternatives, and reasonable expectations. These risks include, but are not limited to, the risks of receiving an anesthetic, the risk of infection, the risk of neurovascular injury that could result in permanent disability, the risk of deep vein thrombosis that could result in potentially fatal pulmonary embolism. Any potential complication could require further surgical intervention. The patient acknowledges these risks and electively signed the consent form. At no time were any guarantees implied or stated. We will schedule the procedure at a mutually convenient time. Surgery will be performed under a general anesthetic as well as a regional anesthetic nerve block. I am requesting the nerve block to assist with intraoperative and postoperative pain control. We will utilize tranexamic acid preoperatively to help improve visualization and minimize blood loss. 2. Left ring finger FDP tendon rupture. An MRI of his left hand will be ordered this week to further investigate the potential tendon injury. If tendon injury is confirmed, then this will take precedence over his knee surgery. 3. P3 fracture left middle finger Stack splint applied for protection and comfort. May be removed for hygiene and when at rest. Diagnoses and all orders for this visit: Pre-op testing - CBC auto differential; Future - Comprehensive metabolic panel; Future - ECG 12 lead; Future A total of 30 to 39 minutes was spent on this patient encounter which included chart review, check in, nurse triage, history taking, physical examination, diagnostic study review, patient counseling and discussion, entering information into the patient's medical record, and coordinating patient care. Eulalio Irby D.O. Attestation This note was created using voice recognition through [employer] artificial intelligence. documented in this encounterBarton County Memorial [id number] Telephone encounter Note* Telephone Encounter - Bria Alvarado LPN - 06/30/2024 2:07 PM EST Received request for refill of the following medications: Requested Prescriptions Pending Prescriptions Disp Refills doxazosin (CARDURA) 4 mg tablet [Pharmacy Med Name: DOXAZOSIN MESYLATE 4 MG TAB] 90 tablet 3 Sig: TAKE 1 TABLET BY MOUTH EVERYDAY AT BEDTIME Patient requested a 90 day refill. Pharmacy verified and updated accordingly. Patient was last seen in cardiology office: 01/30/2024. Upcoming appointment scheduled: 07/30/2024. Labs: Hemoglobin (g/dL) Date Value 12/03/2021 16.4 Hematocrit (%) Date Value 12/03/2021 48.3 WBC (k/uL) Date Value 12/03/2021 9.10 Platelet Count (k/uL) Date Value 12/03/2021 129 Creatinine Date Value Ref Range Status 10/17/2022 1.01 0.73 - 1.22 mg/dL Final 04/01/2022 0.98 0.73 - 1.22 mg/dL Final [facility]11-06-2024 Miscellaneous Notes* Telephone Encounter - Bria Alvarado LPN - 06/30/2024 2:07 PM EST Received request for refill of the following medications: Requested Prescriptions Pending Prescriptions Disp Refills doxazosin (CARDURA) 4 mg tablet [Pharmacy Med Name: DOXAZOSIN MESYLATE 4 MG TAB] 90 tablet 3 Sig: TAKE 1 TABLET BY MOUTH EVERYDAY AT BEDTIME Patient requested a 90 day refill. Pharmacy verified and updated accordingly. Patient was last seen in cardiology office: 01/30/2024. Upcoming appointment scheduled: 07/30/2024. Labs: Hemoglobin (g/dL) Date Value 12/03/2021 16.4 Hematocrit (%) Date Value 12/03/2021 48.3 WBC (k/uL) Date Value 12/03/2021 9.10 Platelet Count (k/uL) Date Value 12/03/2021 129 Creatinine Date Value Ref Range Status 10/17/2022 1.01 0.73 - 1.22 mg/dL Final 04/01/2022 0.98 0.73 - 1.22 mg/dL Final [facility] Telephone encounter Note * Telephone Encounter - DOROTHEA Liang - 06/29/2024 4:06 PM EST My Chart message sent. [facility] [id number] Miscellaneous Notes* Telephone Encounter - DOROTHEA Liang - 06/29/2024 4:06 PM EST My Chart message sent. documented in this encounterBarton County [facility] [id number] Telephone encounter Note* Telephone Encounter - DOROTHEA Liang - 06/28/2024 10:41 AM EST Message sent through [employer] [facility] [id number] Miscellaneous Notes* Telephone Encounter - DOROTHEA Liang - 06/28/2024 10:41 AM EST Message sent through [employer] * Telephone Encounter - Kayla Rose LPN - 06/25/2024 12:28 PM EDT Attempted to call patient multiple times and call will not go through. Xray order has been sent to [facility] so he can go get that done at his convenience and PT will contact him to schedule. * Telephone Encounter - DOROTHEA Liang - 06/25/2024 12:08 PM EDT Ok to send order for x-rays to [facility]. Please let pt know that x-rays have been ordered and a PT referral was sent for him also. * Telephone Encounter - Kayla Rose LPN - 06/25/2024 11:51 AM EDT Pt called stating he saw Sedrick Lyons on 06/10 and was diagnosed with stain of thoracic spine and muscle spasm, rx'd Prednisone, Tizanidine. States it is not really helping and was ?'ing if you could order either an x-ray or PT. X-ray he would like to have done at [facility] if you do order. documented in this encounterBarton County Memorial [id number] Telephone encounter Note* Telephone Encounter - Kayla Rose LPN - 06/25/2024 12:28 PM EDT Attempted to call patient multiple times and call will not go through. Xray order has been sent to [facility] so he can go get that done at his convenience and PT will contact him to schedule. [facility] [id number] Telephone encounter Note* Telephone Encounter - DOROTHEA Liang - 06/25/2024 12:08 PM EDT Ok to send order for x-rays to [facility]. Please let pt know that x-rays have been ordered and a PT referral was sent for him also. [facility] [id number] Telephone encounter Note* Telephone Encounter - Kayla Rose LPN - 06/25/2024 11:51 AM EDT Pt called stating he saw Sedrick Lyons on 06/10 and was diagnosed with stain of thoracic spine and muscle spasm, rx'd Prednisone, Tizanidine. States it is not really helping and was ?'ing if you could order either an x-ray or PT. X-ray he would like to have done at [facility] if you do order. [facility] [id number] History of Present illness Narrative* Eulalio Irby, - 06/15/2024 3:15 PM EDT Images from the original note were not included. @[employer]@ [facility] is a 63 y.o. male who presents for Knee Pain of the Right Knee HPI: History of Present Illness The patient is a 63-year-old male who presents today for evaluation of his right knee. He reports a sensation of his knee catching but does not experience any instances of his knee locking. When attempting to rise from a kneeling position, he notices a slight shaking in his leg to overcome a sticking point. He was previously seen for his knee in 2018 and earlier this year in December. He is planning to retire in 08/2024 and hopes to engage in activities such as golf and pickleball, which he is currently unable to do due to his knee condition. SUBJECTIVE: MEDICATIONS: Current Outpatient Medications Medication Instructions aspirin 81 mg, Daily cholecalciferol (VITAMIN D-3) 25 mcg, Daily doxazosin (Cardura) 4 MG tablet 1 tablet, Nightly nebivolol (BYSTOLIC) 5 mg, Daily NIFEdipine CC (ADALAT CC) 30 mg, Daily before breakfast predniSONE (Deltasone) 20 MG tablet 3 tabs x 2 days, 2 tabs x 2 days, 1 1/2 tab x 2 days, 1 tab x 2days, 1/2 tab x 2 days, then stop sildenafil (VIAGRA) 100 mg, Daily PRN tiZANidine (ZANAFLEX) 4 mg, Oral, Every 8 hours PRN valsartan-hydroCHLOROthiazide (Diovan-HCT) 320-25 MG tablet 1 tablet, Daily vitamin C 250 mg, Daily ALLERGIES: No Known Allergies SURGICAL HISTORY: Past Surgical History: Procedure Laterality Date COLONOSCOPY 2019 COLONOSCOPY 2013 FAMILY HISTORY: Family History Problem Relation Name Age of Onset Cancer Mother Merry Valera SOCIAL HISTORY: Social History Tobacco Use Smoking status: Never Smokeless tobacco: Never Vaping Use Vaping status: Never Used Substance Use Topics Alcohol use: Yes Comment: Caffeine intake: 1-2 cups per day Drug use: Never Depression: Not on file REVIEW OF SYMPTOMS: Review of Systems The review of systems, history and current medications list are all reviewed today. OBJECTIVE: Visit Vitals Ht 6' Wt 202 lb BMI 27.40 kg/m Smoking Status Never BSA 2.16 m Physical Exam Alert and oriented, no acute distress. Mood and affect are appropriate. Ambulating independently. Gait is nonantalgic. RIGHT KNEE Right knee demonstrates full extension with good quadriceps bulk and tone. Flexion is comparable tothe left knee, approximately 120 to 125 degrees. Tenderness is noted over the medial joint line. Negative lachmans, negative anterior and posterior drawer. No varus or valgus instability. Positive mcm urrays LEFT KNEE The skin is warm, dry and intact. There is no effusion, no erythema. Full flexion and extension. Good quadriceps bulk and tone. There is no tenderness at the patellofemoral joint, medial or lateral joint line, patellar tendon, femoral condyles or proximal tibia. No cruciate or collateral instability. Negative Radhames's. Ortho Exam Results MRI of the right knee performed at [facility] on 03/13/2019; Tear in the body and posterior horn of the medial meniscus. There is some underlying subchondral edema at the medial tibial plateau with degenerative changes present at the medial compartment. The lateral meniscus, cruciate and collateral ligaments are intact. ASSESSMENT AND PLAN: I reviewed the history, physical exam, diagnostic studies, and diagnosis with the patient. Assessment & Plan 1. Right knee medial meniscus tear with mechanical symptoms Surgical intervention is recommended to alleviate symptoms and restore function. The patient would like to proceed with right knee arthroscopy, meniscal work as needed. I explainedthat the decision on how to address the meniscus will be made intraoperatively depending on tear pattern and location. I also explained the different rehab protocols following repair versus partial meniscectomy. I reviewed the risk, benefits, complications, alternatives, and reasonable expectations. These risks include, but are not limited to, the risks of receiving an anesthetic, the risk of infection, the risk of neurovascular injury that could result in permanent disability, the risk of deep vein thrombosis that could result in potentially fatal pulmonary embolism. Any potential complication could require further surgical intervention. The patient acknowledges these risks and electively signed the consent form. At no time were any guarantees implied or stated. We will schedule the procedure at a mutually convenient time. We will utilize tranexamic acid preoperatively to help improve visualization and minimize blood loss. A total of 30 to 39 minutes was spent on this patient encounter which included chart review, check in, nurse triage, history taking, physical examination, diagnostic study review, patient counseling and discussion, entering information into the patient's medical record, and coordinating patient care. There are no diagnoses linked to this encounter. Eulalio Irby D.O. Attestation This note was created using voice recognition through [employer] documented in this encounterBarton County Memorial [id number] History of Present illness Narrative* Sedrick Lyons NP - 06/10/2024 4:30 PM EDT Images from the original note were not included. Subjective Patient ID: Darius Valera is a 63 y.o. male who presents for Back Pain. Back Pain Patient presents for evaluation of low back problems. Symptoms have been present for 3 weeks and include pain in mid/upper back right side Initial inciting event: none. Alleviating factors identifiable by the patient are medication ibuprofen mild relief. Aggravating factors identifiable by the patient are recumbency. Treatments initiated by the patient: ice and NSAIDS. Back Pain Current Outpatient Medications on File Prior to Visit Medication Sig Dispense Refill Ascorbic Acid (vitamin C) 250 MG tablet Take 250 mg by mouth Daily aspirin 81 MG EC tablet Take 81 mg by mouth in the morning. cholecalciferol (Vitamin D-3) 25 MCG tablet Take 25 mcg by mouth Daily doxazosin (Cardura) 4 MG tablet Take 1 tablet by mouth at bedtime nebivolol (Bystolic) 5 MG tablet Take 5 mg by mouth Daily NIFEdipine CC (Adalat CC) 30 MG 24 hr tablet Take 30 mg by mouth in the morning. Take before meals.Do not crush, chew, or split.. sildenafil (Viagra) 100 MG tablet Take 100 mg by mouth Daily as needed for erectile dysfunction valsartan-hydroCHLOROthiazide (Diovan-HCT) 320-25 MG tablet Take 1 tablet by mouth in the morning. No current facility-administered medications on file prior to visit. I have reviewed and reconciled the history and medication list with the patient today. No Known Allergies Social History Tobacco Use Smoking status: Never Smokeless tobacco: Never Vaping Use Vaping status: Never Used Substance Use Topics Alcohol use: Yes Comment: Caffeine intake: 1-2 cups per day Drug use: Never Family History Problem Relation Name Age of Onset Cancer Mother Merry Valera Past Medical History: Diagnosis Date Atrial fibrillation (CMS/HCC) COVID-19 08/05/2023 Hydronephrosis 04/14/2023 Hyperlipidemia (CMS/HCC) Hypertension (CMS/HCC) Kidney stone 04/14/2023 Mixed hyperlipidemia (CMS/HCC) 08/05/2023 DMITRY (obstructive sleep apnea) Sleep apnea Tubular adenoma polyp of rectum 2019 Ureteral stone 02/09/2024 Past Surgical History: Procedure Laterality Date COLONOSCOPY 2019 COLONOSCOPY 2014 Visit Vitals Ht 6' BMI 27.12 kg/m Smoking Status Never BSA 2.15 m Review of Systems Musculoskeletal: Positive for back pain. Objective Physical Exam Vitals reviewed. Constitutional: Appearance: Normal appearance. HENT: Head: Normocephalic and atraumatic. Right Ear: External ear normal. Left Ear: External ear normal. Mouth/Throat: Mouth: Mucous membranes are moist. Pharynx: Oropharynx is clear. Eyes: Extraocular Movements: Extraocular movements intact. Conjunctiva/sclera: Conjunctivae normal. Pupils: Pupils are equal, round, and reactive to light. Cardiovascular: Rate and Rhythm: Normal rate and regular rhythm. Heart sounds: Normal heart sounds. Pulmonary: Effort: Pulmonary effort is normal. Breath sounds: Normal breath sounds. Abdominal: Palpations: Abdomen is soft. Musculoskeletal: General: Tenderness present. Cervical back: Normal range of motion and neck supple. Comments: Limited ROM dt pain, trapezius muscle in spasm Skin: General: Skin is warm and dry. Neurological: General: No focal deficit present. Mental Status: He is alert and oriented to person, place, and time. Psychiatric: Mood and Affect: Mood normal. Behavior: Behavior normal. Thought Content: Thought content normal. Judgment: Judgment normal. Assessment/Plan 1. Strain of thoracic back region (Primary) Discussed diagnosis, use of prednisone and its most common side effects. Advised to continue ice tothe area alternating with heat, rest the area. Discussed gentle stretching exercises when able. Follow up as needed for continued or worsening symptoms. - predniSONE (Deltasone) 20 MG tablet; 3 tabs x 2 days, 2 tabs x 2 days, 1 1/2 tab x 2 days, 1 tab x 2 days, 1/2 tab x 2 days, then stop Dispense: 16 tablet; Refill: 0 2. Muscle spasm Discussed use of tizanidine and its most common side effects. - tiZANidine (Zanaflex) 4 MG tablet; Take 1 tablet (4 mg) by mouth every 8 (eight) hours if needed for muscle spasms for up to 10 days Dispense: 30 tablet; Refill: 0 No follow-ups on file. documented in this [facility]10-17-2024 Instructions* Patient Instructions* Sedrick Lyons NP - 06/10/2024 4:30 PM EDT Added prednisone and tizanidine. documented in this [facility]09-27-2024 History of Present illness Narrative* Grace Haque MD - 05/21/2024 9:30 AM EDT Images from the original note were not included. Darius Valera 1960 Darius Valera is a 63 y.o. male presents with chief complaint of Consult (Screening colonoscopy) HPI: Patient is a 63-year-old male who presents to discuss colonoscopy. Patient had colonoscopy 5 years ago. He had a small cecal polyp. Pathology revealed tubular adenoma. Patient denies family history for colon cancer. Denies abdominal pain, change in bowel habits, blood in the stool. SUBJECTIVE: MEDICATIONS: ALLERGIES Current Outpatient Medications Medication Instructions aspirin 81 mg, Oral, Daily cholecalciferol (VITAMIN D-3) 25 mcg, Oral, Daily doxazosin (Cardura) 4 MG tablet 1 tablet, Oral, Nightly nebivolol (BYSTOLIC) 5 mg, Oral, Daily NIFEdipine CC (ADALAT CC) 30 mg, Oral, Daily before breakfast, Do not crush, chew, or split. sildenafil (VIAGRA) 100 mg, Oral, Daily PRN valsartan-hydroCHLOROthiazide (Diovan-HCT) 320-25 MG tablet 1 tablet, Oral, Daily vitamin C 250 mg, Oral, Daily No Known Allergies PAST MEDICAL HISTORY: SOCIAL HISTORY SURGICAL HISTORY: Past Medical History: Diagnosis Date Atrial fibrillation (CMS/HCC) COVID-19 08/05/2023 Hydronephrosis 04/14/2023 Hyperlipidemia (CMS/HCC) Hypertension (CMS/HCC) Kidney stone 04/14/2023 DMITRY (obstructive sleep apnea) Sleep apnea Tubular adenoma polyp of rectum 2019 Ureteral stone 02/09/2024 Social History Tobacco Use Smoking status: Never Smokeless tobacco: Never Vaping Use Vaping status: Never Used Substance Use Topics Alcohol use: Yes Comment: Caffeine intake: 1-2 cups per day Drug use: Never Past Surgical History: Procedure Laterality Date COLONOSCOPY 2019 COLONOSCOPY 2013 REVIEW OF SYMPTOMS: Review of Systems Constitutional: Negative for fever. HENT: Negative for trouble swallowing. Respiratory: Negative for shortness of breath. Cardiovascular: Negative for chest pain. Gastrointestinal: Negative for abdominal pain and blood in stool. Genitourinary: Negative for difficulty urinating. Musculoskeletal: Negative for back pain. Neurological: Negative for syncope. OBJECTIVE: Visit Vitals BP 120/80 Ht 6' Wt 200 lb BMI 27.12 kg/m Smoking Status Never BSA 2.15 m Physical Exam Constitutional: General: He is not in acute distress. HENT: Head: Atraumatic. Eyes: General: No scleral icterus. Cardiovascular: Rate and Rhythm: Normal rate and regular rhythm. Pulmonary: Breath sounds: Normal breath sounds. Abdominal: General: There is no distension. Palpations: Abdomen is soft. Tenderness: There is no abdominal tenderness. Musculoskeletal: Cervical back: Neck supple. Skin: General: Skin is warm and dry. Neurological: General: No focal deficit present. Mental Status: He is alert. ASSESSMENT AND PLAN: Assessment/Plan Diagnoses and all orders for this visit: History of colon polyps Screening for malignant neoplasm of colon - Ambulatory referral to General Surgery Plan will be to perform a colonoscopy. The procedure, benefits, risks including risks of bleeding, perforation, incomplete colonoscopy were discussed. If the colonoscopy is normal, next colonoscopy in 10 years. documented in this encounterBarton County Memorial [id number] NoteHNO ID: [id number] Author: BILL TUTTLE MD Service: ? Author Type: Physician Type: Progress Notes Filed: 01/30/2024 14:47 Note Text: [facility] [place] Sissy Zepeda Department of Cardiovascular Medicine SECTION OF REGIONAL CARDIOLOGY OUTPATIENT VISIT DATE January 30, 2024 OUTPATIENT VISIT TYPE ESTABLISHED HISTORY OF PRESENT ILLNESS: Darius Valera is a (an) 63 year old year old male who is here today for follow-up. He had elevated WBCs and was seen by outside offline cutter and was told might have CLL Last OV 10/03/23 Darius Valera is a (an) 63 year old year old male who is here today for follow-up. Since last visit denies chest pain, SOB, palpitations or lightheadedness. Was seen by EP and noted to have elevated BP. Was added on Bystolic. Darius Valera is a (an) 62 year old year old male who is here today for follow-up. Since last visit denies chest pain, SOB, palpitations or lightheadedness. Was taken off Eliquis by EP. Darius Valera is a (an) 62 year old year old male who is here today for follow up. Since last visit denies chest pain, SOB, TAY, palpitations or edema. He brought his BP log book which showed occasional elevated BP at home in the morning.Had some labs at work. Darius Valera is a 62 year old male here today for follow up from [place], [place]. Has h/o AF s/p ablation, HTN, DMITRY, tachycardia induced CMP, and CHF. On Eliquis, Nifedipine XL, Valsartan/HCTZ added on Doxazosin. Doxazocin increased to 2 mg but has been using only 1 mg daily. Continue to have BP spikes above 150s. Sotalol was discontinued. He followed before with a local dairy consultant Dr Hooks. Since last visit denies chest pain or SOB, orthopnea or palpitations Had CT of chest which showed atherosclerosis with mild aortic root ectasia 4.3 cm No past medical history on file. No past surgical history on file. No family history on file. SOCIAL HISTORY Social History Tobacco Use Smoking status: Never Smokeless tobacco: Never Substance Use Topics Alcohol use: Not Currently Drug use: Never ALLERGIES: Patient has no known allergies. CURRENT MEDICATIONS: Current Outpatient Medications Medication Sig meloxicam (MOBIC) 15 mg tablet TAKE 1 TABLET (15 MG) BY MOUTH DAILY NEEDED FOR MILD PAIN NIFEdipine XL (ADALAT CC) 30 mg 24 hr tablet take one tablet by mouth daily nebivolol (BYSTOLIC) 5 mg tablet Take 1 tablet by mouth once daily. aspirin, enteric coated (ASPIRIN, ENTERIC COATED) 81 mg EC tablet Take 81 mg by mouth. doxazosin (CARDURA) 4 mg tablet Take 1 tablet by mouth daily at bedtime. Valsartan-hydroCHLOROthiazide 320-25 mg per tablet TAKE ONE TABLET BY MOUTH DAILY sildenafil citrate (VIAGRA ORAL) Take by mouth as needed. Current Facility-Administered Medications Medication Dose Route Frequency perflutren lipid microspheres 1.3 mL in NaCl (PF) 0.9% 10 mL injection (DEFINITY) INTRAVENOUS DIRECTED PRN sodium chloride 0.9 % (flush) 10 mL (BD POSIFLUSH) 10 mL INTRAVENOUS DIRECTED PRN REVIEW OF SYSTEMS: CARDIOVASCULAR: See present history. PULMONARY:No cough or sputum production GASTROINTESTINAL:no bowel changes. GENITOURINARY:no urinary symptoms. ENDOCRINE:no significant weight loss/gain, heat/cold intolerance. NEUROLOGICAL:no focal weakness, focal sensory loss, headache, visual changes, seizure activity, ataxia, speech/language loss. RHEUMATOLOGY:no joint swelling, back pain, knee pain, hip pain, or neck pain. INFECTION:no fevers, chills, rigors or night sweats. SKIN:no rash HEMATOLOGY:no bruising, GI bleeding, hematuria, or spontaneous bleeding I have personally interviewed, confirmed and edited the above information if obtained by others - Bill Tuttle M.D. PHYSICAL EXAMINATION: Last 3 Encounter BP Readings: Date: BP: 10/03/2023 136/76 09/12/2023 148/76 07/31/2023 154/88 Last 3 Encounter Pulse Readings: Date: Pulse: 10/03/2023 59 09/12/2023 74 07/31/2023 71 Last 3 Encounter Wt Readings: Date: Wt: 10/03/2023 91.2 kg (201 lb 1 oz) 09/12/2023 89.8 kg (198 lb) 07/31/2023 88.9 kg (196 lb) BP 148/80 Pulse 66 Ht 6' 0 (1.83m) Wt 204 lb 2.3 oz (92.6kg) SpO2 97% BMI 27.68 kg/(m2). GENERAL:No acute distress HEENT:Atraumatic, normocephalic. NECK: No JVD, no HJR, no carotid bruit, normal carotid upstrokes, no thyromegaly CARDIAC: Regular rhythm. Normal S1 and S2. No murmur, rub or gallop. LUNGS: clear to auscultation, no rhonchi, no rales, no wheezes ABDOMEN: Bowel sounds normal. EXTREMITIES: No peripheral edema NEURO: Oriented to person, place, and time. Appropriate and cooperative, no gross deficit. LABS: Cholesterol, Total (mg/dL) Date Value 04/01/2022 173 HDL Cholesterol (mg/dL) Date Value 04/01/2022 52 LDL Cholesterol (mg/dL) Date Value 04/01/2022 104 Triglyceride (mg/dL) Date Value 04/01/2022 85 No (more content not included)...[facility]06-07-2024 History of Present illness Narrative* Ita Tuttle MD - 01/30/2024 2:08 PM EDT Images from the original note were not included. [facility] [place] Sissy Zepeda Department of Cardiovascular Medicine SECTION OF REGIONAL CARDIOLOGY OUTPATIENT VISIT DATE January 30, 2024 OUTPATIENT VISIT TYPE ESTABLISHED HISTORY OF PRESENT ILLNESS: Darius Valera is a (an) 63 year old year old male who is here today for follow- up. He had elevated WBCs and was seen by outside offline cutter and was told might have CLL Last OV 10/03/23 Darius Valera is a (an) 63 year old year old male who is here today for follow- up. Since last visit denies chest pain, SOB, palpitations or lightheadedness. Was seen by EP and noted to have elevated BP. Was added on Bystolic. Darius Valera is a (an) 62 year old year old male who is here today for follow- up. Since last visit denies chest pain, SOB, palpitations or lightheadedness. Was taken off Eliquis by EP. Darius Valera is a (an) 62 year old year old male who is here today for follow up. Since last visit denies chest pain, SOB, TAY, palpitations or edema. He brought his BP log book which showed occasional elevated BP at home in the morning.Had some labs at work. Darius Valera is a 62 year old male here today for follow up from [place], [place]. Has h/o AF s/p ablation, HTN, DMITRY, tachycardia induced CMP, and CHF. On Eliquis, Nifedipine XL, Valsartan/HCTZ added on Doxazosin. Doxazocin increased to 2 mg but has been using only 1 mg daily. Continue to have BP spikes above 150s. Sotalol was discontinued. He followed before with a local dairy consultant Dr Hooks. Since last visit denies chest pain or SOB, orthopnea or palpitations Had CT of chest which showed atherosclerosis with mild aortic root ectasia 4.3 cm No past medical history on file. No past surgical history on file. No family history on file. SOCIAL HISTORY Social History Tobacco Use Smoking status: Never Smokeless tobacco: Never Substance Use Topics Alcohol use: Not Currently Drug use: Never ALLERGIES: Patient has no known allergies. CURRENT MEDICATIONS: Current Outpatient Medications Medication Sig meloxicam (MOBIC) 15 mg tablet TAKE 1 TABLET (15 MG) BY MOUTH DAILY NEEDED FOR MILD PAIN NIFEdipine XL (ADALAT CC) 30 mg 24 hr tablet take one tablet by mouth daily nebivolol (BYSTOLIC) 5 mg tablet Take 1 tablet by mouth once daily. aspirin, enteric coated (ASPIRIN, ENTERIC COATED) 81 mg EC tablet Take 81 mg by mouth. doxazosin (CARDURA) 4 mg tablet Take 1 tablet by mouth daily at bedtime. Valsartan-hydroCHLOROthiazide 320-25 mg per tablet TAKE ONE TABLET BY MOUTH DAILY sildenafil citrate (VIAGRA ORAL) Take by mouth as needed. Current Facility-Administered Medications Medication Dose Route Frequency perflutren lipid microspheres 1.3 mL in NaCl (PF) 0.9% 10 mL injection (DEFINITY) INTRAVENOUS DIRECTED PRN sodium chloride 0.9 % (flush) 10 mL (BD POSIFLUSH) 10 mL INTRAVENOUS DIRECTED PRN REVIEW OF SYSTEMS: CARDIOVASCULAR: See present history. PULMONARY:No cough or sputum production GASTROINTESTINAL:no bowel changes. GENITOURINARY:no urinary symptoms. ENDOCRINE:no significant weight loss/gain, heat/cold intolerance. NEUROLOGICAL:no focal weakness, focal sensory loss, headache, visual changes, seizure activity, ataxia, speech/language loss. RHEUMATOLOGY:no joint swelling, back pain, knee pain, hip pain, or neck pain. INFECTION:no fevers, chills, rigors or night sweats. SKIN:no rash HEMATOLOGY:no bruising, GI bleeding, hematuria, or spontaneous bleeding I have personally interviewed, confirmed and edited the above information if obtained by others - Bill Tuttle M.D. PHYSICAL EXAMINATION: Last 3 Encounter BP Readings: Date: BP: 10/03/2023 136/76 09/12/2023 148/76 07/31/2023 154/88 Last 3 Encounter Pulse Readings: Date: Pulse: 10/03/2023 59 09/12/2023 74 07/31/2023 71 Last 3 Encounter Wt Readings: Date: Wt: 10/03/2023 91.2 kg (201 lb 1 oz) 09/12/2023 89.8 kg (198 lb) 07/31/2023 88.9 kg (196 lb) BP 148/80 Pulse 66 Ht 6' 0 (1.83m) Wt 204 lb 2.3 oz (92.6kg) SpO2 97% BMI 27.68 kg/(m^2). GENERAL:No acute distress HEENT:Atraumatic, normocephalic. NECK: No JVD, no HJR, no carotid bruit, normal carotid upstrokes, no thyromegaly CARDIAC: Regular rhythm. Normal S1 and S2. No murmur, rub or gallop. LUNGS: clear to auscultation, no rhonchi, no rales, no wheezes ABDOMEN: Bowel sounds normal. EXTREMITIES: No peripheral edema NEURO: Oriented to person, place, and time. Appropriate and cooperative, no gross deficit. LABS: Cholesterol, Total (mg/dL) Date Value 04/01/2022 173 HDL Cholesterol (mg/dL) Date Value 04/01/2022 52 LDL Cholesterol (mg/dL) Date Value 04/01/2022 104 Triglyceride (mg/dL) Date Value 04/01/2022 85 No results found for: NMRTOT AST (U/L) Date Value 04/01/2022 23 ALT (U/L) Date Value 04/01/2022 19 No results found for: CK No results found for: INR No results found for: TSH No results found for: BNP No results found for: PBNP Hemoglobin (g/dL) Date Value 12/03/2021 16.4 Hematocrit (%) Date Value 12/03/2021 48.3 WBC (k/uL) Date Value 12/03/2021 9.10 Platelet Count (k/uL) Date Value 12/03/2021 129 Glucose (mg/dL) Date Value 10/17/2022 92 Potassium (mmol/L) Date Value 10/17/2022 4.4 Sodium (mmol/L) Date Value 10/17/2022 140 Chloride (mmol/L) Date Value 10/17/2022 101 CO2 (mmol/L) Date Value 10/17/2022 30 Creatinine (mg/dL) Date Value 10/17/2022 1.01 Creatinine (POCT) (mg/dL) Date Value 03/22/2022 0.90 BUN (mg/dL) Date Value 10/17/2022 22 Anion Gap (mmol/L) Date Value 10/17/2022 9 Calcium, Total (mg/dL) Date Value 10/17/2022 9.4 CARDIOVASCULAR MEDICINE TESTING: CT pulmonary 03/22/22 The aortic valve is trileaflet, and free from calcifications. Mild aortic root ectasia at 4.3 cm. The visualized portions of the ascending and descending thoracic aorta are of normal size. The aortic arch is not included in this study. There is no acute aortic pathology, such as dissection, intramural hematoma, or contained rupture. The coronary arteries have normal origins and courses. There are moderate coronary calcifications, though this study was not optimized for coronary artery evaluation. Outside lipids 12/27/22 TC 183 TG 44 HDL 70 LDL 104 EKG 09/12/23 Echo 07/31/23 CONCLUSIONS: - Exam indication: Abnormal ECG - The left ventricle is normal in size. Left ventricular systolic function is normal. EF = 53 5% (2D biplane) - The right ventricle is normal in size. Right ventricular systolic function is normal. - The left atrial cavity is mildly dilated. - There are no significant valvular abnormalities. - The visualized aorta is borderline dilated with a maximal dimension of 3.9 cm. - Exam was compared with the prior echocardiographic exam performed on 03/22/2022. There is no significant change. Enrollment Dates: 09/12/2023-09/25/2023 IRHYTHM FINDINGS: Patient had a min HR of 44 bpm, max HR of 185 bpm, and avg HR of 68 bpm. Predominant underlying rhythm was Sinus Rhythm. First Degree AV Block was present. 3 Ventricular Tachycardiaruns occurred, the run with the fastest interval lasting 4 beats with a max rate of 185 bpm, the longest lasting 17.3 secs with an avg rate of 129 bpm. 4 Supraventricular Tachycardia runs occurred, the run with the fastest interval lasting 7 beats with a max rate of 146 bpm, the longest lasting 8 beats with an avg rate of 136 bpm. Isolated SVEs were rare (<1.0%), SVE Couplets were rare (<1.0%), and SVE Triplets were rare (<1.0%). Isolated VEs were occasional (1.4%, 61015), VE Couplets were rare (<1.0%, 56), and VE Triplets were rare (<1.0%, 1). Ventricular Bigeminy and Trigeminy were present. No symptoms reported. ASSESSMENT/PLAN: 1. PAF s/p Ablation 12/03/[address] Sena, HTN, DMITRY, tachycardia induced CMP with improved fx, CHF,DMITRY, Atherosclerosis with coronary calcification on CT, Aortic root ectasia/dilatation 4.3 cm. - Patient appears volume compensated on today's exam. - On Valsartan/HCTZ 320/25 mg daily, and Nifedipine (did not tolerate higher than 30 mg daily >caused ankle edema) and added on Doxazosin. Most recently added on Bystolic 5 mg daily. Continue current dose. He is to let me know if SBP>140 then can up titrate Bystolic as needed - S/p DCC by his local dairy consultant (Dr Castle) and subsequent ablation by EP (Dr Sena). - Negative outside stress EKG for ischemia 03/22/2020 - Refill authorized - Most recent renal fx reviewed This note was partially generated using Queryly voice recognition system, and there may be some incorrect words, spellings, and punctuation that were not noted in checking the note before saving. Someelements copied from my previous notes which have been updated as appropriate and reflect current medical decision making from today Bill Tuttle M.D., F.Shelley CONTACT INFORMATION: Shelbi Tuttle M.D., Miguel. Airport Traffic Controller Clinical safety net maker [facility] [employer] Credit Or Loans Officer Timothy Diaz [facility] Mail Code [id number] [facility] [place] [address] CC: To use this Smartlink, specify the provider ID whose address you want to display, e.g., .PROVADDR[1 (where 1 is the provider ID). documented in this encounterMer[facility]05-[facility]24 Telephone encounter Note * Telephone Encounter - Fabiola Doty OCCA - 12/31/2023 4:20 PM EDT Received request for refill of the following medications: Requested Prescriptions Pending Prescriptions Disp Refills NIFEdipine XL (ADALAT CC) 30 mg 24 hr tablet [Pharmacy Med Name: NIFEdipine ER 30 MG TABLET] 90 tablet 3 Sig: take one tablet by mouth daily Patient requested a 90 day refill. Pharmacy verified and updated accordingly. Patient was last seen in cardiology office: 10-03-2023. Upcoming appointment scheduled: 01-30-2024. Labs: Hemoglobin (g/dL) Date Value 12/03/2021 16.4 Hematocrit (%) Date Value 12/03/2021 48.3 WBC (k/uL) Date Value 12/03/2021 9.10 Platelet Count (k/uL) Date Value 12/03/2021 129 Creatinine Date Value Ref Range Status 10/17/2022 1.01 0.73 - 1.22 mg/dL Final 04/01/2022 0.98 0.73 - 1.22 mg/dL Final [facility]05-08-2024 Miscellaneous Notes* Telephone Encounter - Fabiola Doty OCCA - 12/31/2023 4:20 PM EDT Received request for refill of the following medications: Requested Prescriptions Pending Prescriptions Disp Refills NIFEdipine XL (ADALAT CC) 30 mg 24 hr tablet [Pharmacy Med Name: NIFEdipine ER 30 MG TABLET] 90 tablet 3 Sig: take one tablet by mouth daily Patient requested a 90 day refill. Pharmacy verified and updated accordingly. Patient was last seen in cardiology office: 10-03-2023. Upcoming appointment scheduled: 01-30-2024. Labs: Hemoglobin (g/dL) Date Value 12/03/2021 16.4 Hematocrit (%) Date Value 12/03/2021 48.3 WBC (k/uL) Date Value 12/03/2021 9.10 Platelet Count (k/uL) Date Value 12/03/2021 129 Creatinine Date Value Ref Range Status 10/17/2022 1.01 0.73 - 1.22 mg/dL Final 04/01/2022 0.98 0.73 - 1.22 mg/dL Final documented in this encounterMercy [facility]02-09-2024 NoteHNO ID: [id number] Author: BILL TUTTLE MD Service: ? Author Type: Physician Type: Progress Notes Filed: 10/03/2023 13:43 Note Text: [facility] [place] Sissy Zepeda Department of Cardiovascular Medicine SECTION OF REGIONAL CARDIOLOGY OUTPATIENT VISIT DATE October 03, 2023 OUTPATIENT VISIT TYPE ESTABLISHED HISTORY OF PRESENT ILLNESS: Darius Valera is a (an) 63 year old year old male who is here today for follow-up. Since last visit denies chest pain, SOB, palpitations or lightheadedness. Was seen by EP and noted to have elevated BP. Was added on Bystolic. Last OV 07/31/23 Darius Valera is a (an) 62 year old year old male who is here today for follow-up. Since last visit denies chest pain, SOB, palpitations or lightheadedness. Was taken off Eliquis by EP. Darius Valera is a (an) 62 year old year old male who is here today for follow up. Since last visit denies chest pain, SOB, TAY, palpitations or edema. He brought his BP log book which showed occasional elevated BP at home in the morning.Had some labs at work. Darius Valera is a 62 year old male here today for follow up from [place], [place]. Has h/o AF s/p ablation, HTN, DMITRY, tachycardia induced CMP, and CHF. On Eliquis, Nifedipine XL, Valsartan/HCTZ added on Doxazosin. Doxazocin increased to 2 mg but has been using only 1 mg daily. Continue to have BP spikes above 150s. Sotalol was discontinued. He followed before with a local dairy consultant Dr Hooks. Since last visit denies chest pain or SOB, orthopnea or palpitations Had CT of chest which showed atherosclerosis with mild aortic root ectasia 4.3 cm SOCIAL HISTORY Social History Tobacco Use Smoking status: Never Smokeless tobacco: Never Substance Use Topics Alcohol use: Not Currently Drug use: Never ALLERGIES: Patient has no known allergies. CURRENT MEDICATIONS: Current Outpatient Medications Medication Sig nebivolol (BYSTOLIC) 5 mg tablet Take 1 tablet by mouth once daily. aspirin, enteric coated (ASPIRIN, ENTERIC COATED) 81 mg EC tablet Take 81 mg by mouth. doxazosin (CARDURA) 4 mg tablet Take 1 tablet by mouth daily at bedtime. Valsartan-hydroCHLOROthiazide 320-25 mg per tablet TAKE ONE TABLET BY MOUTH DAILY NIFEdipine XL (ADALAT CC) 30 mg 24 hr tablet Take 1 tablet by mouth once daily. sildenafil citrate (VIAGRA ORAL) Take by mouth as needed. Current Facility-Administered Medications Medication Dose Route Frequency perflutren lipid microspheres 1.3 mL in NaCl (PF) 0.9% 10 mL injection (DEFINITY) INTRAVENOUS DIRECTED PRN sodium chloride 0.9 % (flush) 10 mL (BD POSIFLUSH) 10 mL INTRAVENOUS DIRECTED PRN REVIEW OF SYSTEMS: CARDIOVASCULAR: See present history. PULMONARY:No cough or sputum production GASTROINTESTINAL:no bowel changes. GENITOURINARY:no urinary symptoms. ENDOCRINE:no chronic fatigue, significant weight loss/gain, heat/cold intolerance. NEUROLOGICAL:no focal weakness, focal sensory loss, headache, visual changes, seizure activity, ataxia, speech/language loss. RHEUMATOLOGY:no joint swelling INFECTION:no fevers, chills, rigors or night sweats. SKIN:no rash HEMATOLOGY:no bruising, GI bleeding, hematuria, or spontaneous bleeding I have personally interviewed, confirmed and edited the above information if obtained by others - Bill Tuttle M.D. PHYSICAL EXAMINATION: Last 3 Encounter BP Readings: Date: BP: 09/12/2023 148/76 07/31/2023 154/88 01/17/2023 132/62 Last 3 Encounter Pulse Readings: Date: Pulse: 09/12/2023 74 07/31/2023 71 01/17/2023 75 Last 3 Encounter Wt Readings: Date: Wt: 09/12/2023 89.8 kg (198 lb) 07/31/2023 88.9 kg (196 lb) 01/17/2023 88.9 kg (196 lb) BP 136/76 Pulse 59 Resp 16 Ht 6' 0 (1.83m) Wt 201 lb 1 oz (91.2kg) SpO2 99% BMI 27.26 kg/(m2). GENERAL:No acute distress HEENT:Atraumatic, normocephalic. NECK: No JVD, no HJR, no carotid bruit, normal carotid upstrokes, no thyromegaly CARDIAC: Regular rhythm. Normal S1 and S2. No murmur, rub or gallop. LUNGS: clear to auscultation, no rhonchi, no rales, no wheezes ABDOMEN: Bowel sounds normal. EXTREMITIES: No peripheral edema NEURO: Oriented to person, place, and time. Appropriate and cooperative, no gross deficit. LABS: Cholesterol, Total (mg/dL) Date Value 04/01/2022 173 HDL Cholesterol (mg/dL) Date Value 04/01/2022 52 LDL Cholesterol (mg/dL) Date Value 04/01/2022 104 Triglyceride (mg/dL) Date Value 04/01/2022 85 No results found for: NMRTOT AST (U/L) Date Value 04/01/2022 23 ALT (U/L) Date Value 04/01/2022 19 No results found for: CK No results found for: INR No results found for: TSH No results found for: BNP No results found for: PBNP Hemoglobin (g/dL) Date Value 12/03/2021 16.4 Hematocrit (%) Date Value 12/03/2021 48.3 WBC (k/uL) Date Value 0 (more content not included)...[facility]01-22-2024 Miscellaneous Notes* Telephone Encounter - Uyen Martinez RN - 09/15/2023 10:37 AM EST Pt sent [facility] message regarding below. * Telephone Encounter - Uyen Martinez RN - 09/15/2023 10:34 AM EST ----- Message from Ita Tuttle MD sent at 09/12/2023 6:26 PM EST ----- Please advise patient that Dr Sena contacted me in regards to his BP. I sent him a new prescription to his drug store for Bystolic 5 mg PO daily to start with his medications and assist him in scheduling a visit with me in 4 weeks to check his BP. Thanks Shelbi Tuttle MD documented in this encounterMer[facility]12-07-2023 History of Present illness Narrative* Ita Tuttle MD - 07/31/2023 12:48 PM EST Images from the original note were not included. [facility] [place] Sissy Zepeda Department of Cardiovascular Medicine SECTION OF REGIONAL CARDIOLOGY OUTPATIENT VISIT DATE July 31, 2023 OUTPATIENT VISIT TYPE ESTABLISHED HISTORY OF PRESENT ILLNESS: Darius Valera is a (an) 62 year old year old male who is here today for follow- up. Since last visit denies chest pain, SOB, palpitations or lightheadedness. Was taken off Eliquis by EP. Last OV 01/17/23 Darius Valera is a (an) 62 year old year old male who is here today for follow up. Since last visit denies chest pain, SOB, TAY, palpitations or edema. He brought his BP log book which showed occasional elevated BP at home in the morning.Had some labs at work. Darius Valera is a 62 year old male here today for follow up from [place], [place]. Has h/o AF s/p ablation, HTN, DMITRY, tachycardia induced CMP, and CHF. On Eliquis, Nifedipine XL, Valsartan/HCTZ added on Doxazosin. Doxazocin increased to 2 mg but has been using only 1 mg daily. Continue to have BP spikes above 150s. Sotalol was discontinued. He followed before with a local dairy consultant Dr Hooks. Since last visit denies chest pain or SOB, orthopnea or palpitations Had CT of chest which showed atherosclerosis with mild aortic root ectasia 4.3 cm SOCIAL HISTORY Social History Tobacco Use Smoking status: Never Smokeless tobacco: Never Substance Use Topics Alcohol use: Not Currently Drug use: Never ALLERGIES: Patient has no known allergies. CURRENT MEDICATIONS: Current Outpatient Medications Medication Sig aspirin, enteric coated (ASPIRIN, ENTERIC COATED) 81 mg EC tablet Take 81 mg by mouth. Valsartan-hydroCHLOROthiazide 320-25 mg per tablet TAKE ONE TABLET BY MOUTH DAILY doxazosin (CARDURA) 2 mg tablet Take 1.5 tablets by mouth daily at bedtime. NIFEdipine XL (ADALAT CC) 30 mg 24 hr tablet Take 1 tablet by mouth once daily. sildenafil citrate (VIAGRA ORAL) Take by mouth as needed. apixaban (ELIQUIS) 5 mg tab(s) Take 1 tablet by mouth twice daily. (Patient not taking: Reported on07/31/2023) Current Facility-Administered Medications Medication Dose Route Frequency perflutren lipid microspheres 1.3 mL in NaCl (PF) 0.9% 10 mL injection (DEFINITY) INTRAVENOUS DIRECTED PRN sodium chloride 0.9 % (flush) 10 mL (BD POSIFLUSH) 10 mL INTRAVENOUS DIRECTED PRN REVIEW OF SYSTEMS: CARDIOVASCULAR: See present history. PULMONARY:No cough or sputum production GASTROINTESTINAL:no bowel changes. GENITOURINARY:no urinary symptoms. ENDOCRINE:no chronic fatigue, significant weight loss/gain, heat/cold intolerance. NEUROLOGICAL:no focal weakness, focal sensory loss, headache, visual changes, seizure activity, ataxia, speech/language loss. RHEUMATOLOGY:no joint swelling INFECTION:no fevers, chills, rigors or night sweats. SKIN:no rash HEMATOLOGY:no bruising, GI bleeding, hematuria, or spontaneous bleeding I have personally interviewed, confirmed and edited the above information if obtained by others - Bill Tuttle M.D. PHYSICAL EXAMINATION: Last 3 Encounter BP Readings: Date: BP: 01/17/2023 132/62 12/25/2022 152/82 10/17/2022 148/88 Last 3 Encounter Pulse Readings: Date: Pulse: 01/17/2023 75 10/17/2022 75 09/13/2022 79 Last 3 Encounter Wt Readings: Date: Wt: 01/17/2023 88.9 kg (196 lb) 12/25/2022 90.7 kg (200 lb) 10/17/2022 91.6 kg (202 lb) BP 154/88 Pulse 71 Ht 6' 0 (1.83m) Wt 196 lb (88.9kg) BMI 26.58 kg/(m^2). GENERAL:No acute distress HEENT:Atraumatic, normocephalic. NECK: No JVD, no HJR, no carotid bruit, normal carotid upstrokes, no thyromegaly CARDIAC: Regular rhythm. Normal S1 and S2. No murmur, rub or gallop. LUNGS: clear to auscultation, no rhonchi, no rales, no wheezes ABDOMEN: Bowel sounds normal. EXTREMITIES: No peripheral edema NEURO: Oriented to person, place, and time. Appropriate and cooperative, no gross deficit. LABS: Cholesterol, Total (mg/dL) Date Value 04/01/2022 173 HDL Cholesterol (mg/dL) Date Value 04/01/2022 52 LDL Cholesterol (mg/dL) Date Value 04/01/2022 104 Triglyceride (mg/dL) Date Value 04/01/2022 85 No results found for: NMRTOT AST (U/L) Date Value 04/01/2022 23 ALT (U/L) Date Value 04/01/2022 19 No results found for: CK No results found for: INR No results found for: TSH No results found for: BNP No results found for: PBNP Hemoglobin (g/dL) Date Value 12/03/2021 16.4 Hematocrit (%) Date Value 12/03/2021 48.3 WBC (k/uL) Date Value 12/03/2021 9.10 Platelet Count (k/uL) Date Value 12/03/2021 129 Glucose (mg/dL) Date Value 10/17/2022 92 Potassium (mmol/L) Date Value 10/17/2022 4.4 Sodium (mmol/L) Date Value 10/17/2022 140 Chloride (mmol/L) Date Value 10/17/2022 101 CO2 (mmol/L) Date Value 10/17/2022 30 Creatinine (mg/dL) Date Value 10/17/2022 1.01 Creatinine (POCT) (mg/dL) Date Value 03/22/2022 0.90 BUN (mg/dL) Date Value 10/17/2022 22 Anion Gap (mmol/L) Date Value 10/17/2022 9 Calcium, Total (mg/dL) Date Value 10/17/2022 9.4 CARDIOVASCULAR MEDICINE TESTING: EKG 01/17/23 Echo 03/22/2022 CONCLUSIONS: - Exam indication: Limited echo s/p PVI 11/2021 - The left ventricle is normal in size. Left ventricular systolic function is normal. EF = 59 5% (2D biplane) Left ventricular diastolic function was not evaluated due to S/P PVI. - The right ventricle is normal in size. Right ventricular systolic function is normal. - The left atrial cavity is mildly dilated. - There are no significant valvular abnormalities. - Exam was compared with the prior echocardiographic exam performed on 10/04/21. S/P PVI. Sinus rhythm today. CT pulmonary 03/22/22 The aortic valve is trileaflet, and free from calcifications. Mild aortic root ectasia at 4.3 cm. The visualized portions of the ascending and descending thoracic aorta are of normal size. The aortic arch is not included in this study. There is no acute aortic pathology, such as dissection, intramural hematoma, or contained rupture. The coronary arteries have normal origins and courses. There are moderate coronary calcifications, though this study was not optimized for coronary artery evaluation. Outside lipids 12/27/22 TC 183 TG 44 HDL 70 LDL 104 EKG 07/31/23 ASSESSMENT/PLAN: 1. PAF s/p Ablation 12/03/[address] Sena, HTN, DMITRY, h/o tachycardia induced CMP with improved fx, CHF, DMITRY, Atherosclerosis with coronary calcification on CT, Aortic root ectasia/dilatation 4.3 cm. - Patient appears volume compensated on today's exam. - On Valsartan/HCTZ 320/25 mg daily, and Nifedipine (did not tolerate higher than 30 mg daily >caused ankle edema) and added on Doxazosin. May increase Doxazosin to 4 mg daily. - Echo today preliminary stable aorta size - S/p DCC by his local dairy consultant (Dr Castle) and subsequent ablation by EP (Dr Sena). - Negative outside stress EKG for ischemia 03/22/2020 - Advised to establish with a PCP at [facility] This note was partially generated using Queryly voice recognition system, and there may be some incorrect words, spellings, and punctuation that were not noted in checking the note before saving. Someelements copied from my previous notes which have been updated as appropriate and reflect current medical decision making from today Bill Tuttle M.D., Miguel CONTACT INFORMATION: Shelbi Tuttle M.D., Miguel. Airport Traffic Controller Clinical safety net maker [facility] [employer] Credit Or Loans Officer Timothy Diaz [facility] Mail Code AVW2-1 [id number] [facility] [place] [address] CC: To use this Smartlink, specify the provider ID whose address you want to display, e.g., .PROVADDR[1 (where 1 is the provider ID). documented in this encounterMer[facility]08-08-2023 Miscellaneous Notes* Telephone Encounter - Griselda Jones APRN.CNP - 04/01/2023 2:52 PM EDT The following approved medication requests have been transmitted electronically. Requested Prescriptions Signed Prescriptions Disp Refills Valsartan-hydroCHLOROthiazide 320-25 mg per tablet 90 tablet 3 Sig: TAKE ONE TABLET BY MOUTH DAILY Authorizing Provider: ITA TUTTLE Ordering User: GRISELDA JONES APRN.CNP * Telephone Encounter - Virgie Pretty MA - 04/01/2023 10:40 AM EDT Received request for refill of the following medications: Requested Prescriptions Pending Prescriptions Disp Refills Valsartan-hydroCHLOROthiazide 320-25 mg per tablet [Pharmacy Med Name: VALSARTAN-HCTZ 320-25 MG TAB] 90 tablet 3 Sig: TAKE ONE TABLET BY MOUTH DAILY Patient requested a 90 day refill. Pharmacy verified and updated accordingly. Patient was last seen in cardiology office: 01/17/2023 Dr. Tuttle. Upcoming appointment scheduled: 04/11/2023. Labs: Hemoglobin (g/dL) Date Value 12/03/2021 16.4 Hematocrit (%) Date Value 12/03/2021 48.3 WBC (k/uL) Date Value 12/03/2021 9.10 Platelet Count (k/uL) Date Value 12/03/2021 129 Creatinine Date Value Ref Range Status 10/17/2022 1.01 0.73 - 1.22 mg/dL Final 04/01/2022 0.98 0.73 - 1.22 mg/dL Final documented in this encounterMercy [facility]05-03-2023 History of Present illness Narrative* Ita Tuttle MD - 12/25/2022 2:00 PM EDT Images from the original note were not included. [facility] [place] Sissy Zepeda Department of Cardiovascular Medicine SECTION OF REGIONAL CARDIOLOGY OUTPATIENT VISIT DATE December 25, 2022 OUTPATIENT VISIT TYPE Established HISTORY OF PRESENT ILLNESS: Darius Valera is a 62 year old male here today for follow up from [place], [place]. Has h/o AF s/p ablation, HTN, DMITRY, tachycardia induced CMP, and CHF. On Eliquis, Nifedipine XL, Valsartan/HCTZ added on Doxazosin. Doxazocin increased to 2 mg but has been using only 1 mg daily. Continue to have BP spikes above 150s. Sotalol was discontinued. He followed before with a local dairy consultant Dr Hooks. Since last visit denies chest pain or SOB, orthopnea or palpitations Had CT of chest which showed atherosclerosis with mild aortic root ectasia 4.3 cm JOANN October 17, 2022 FH: Brother has h/o AF. SOCIAL HISTORY Social History Tobacco Use Smoking status: Never Smokeless tobacco: Never Substance Use Topics Alcohol use: Not Currently Drug use: Never ALLERGIES: Patient has no known allergies. CURRENT MEDICATIONS: Current Outpatient Medications Medication Sig NIFEdipine XL (ADALAT CC) 30 mg 24 hr tablet Take 1 tablet by mouth once daily. doxazosin (CARDURA) 1 mg tablet TAKE 1 TABLET BY MOUTH EVERYDAY AT BEDTIME Valsartan-hydroCHLOROthiazide 320-25 mg per tablet Take 1 tablet by mouth once daily. apixaban (ELIQUIS) 5 mg tab(s) Take 1 tablet by mouth twice daily. sildenafil citrate (VIAGRA ORAL) Take by mouth as needed. Current Facility-Administered Medications Medication Dose Route Frequency perflutren lipid microspheres 1.3 mL in NaCl (PF) 0.9% 10 mL injection (DEFINITY) INTRAVENOUS DIRECTED PRN sodium chloride 0.9 % (flush) 10 mL (BD POSIFLUSH) 10 mL INTRAVENOUS DIRECTED PRN REVIEW OF SYSTEMS: CARDIOVASCULAR: See present history. PULMONARY:No cough or sputum production GASTROINTESTINAL:no bowel changes. GENITOURINARY:no urinary symptoms. ENDOCRINE:no chronic fatigue, significant weight loss/gain, heat/cold intolerance. NEUROLOGICAL:no focal weakness, focal sensory loss, headache, visual changes, seizure activity, ataxia, speech/language loss. RHEUMATOLOGY:no joint swelling, back pain, knee pain, hip pain, or neck pain. INFECTION:no fevers, chills, rigors or night sweats. SKIN:no rash HEMATOLOGY:no bruising, GI bleeding, hematuria, or spontaneous bleeding I have personally interviewed, confirmed and edited the above information if obtained by others - Bill Tuttle M.D. PHYSICAL EXAMINATION: No data found for this vital: BP No data found for this vital: Pulse No data found for this vital: Wt BP 152/82 Ht 6' 0 (1.83m) Wt 200 lb (90.7kg) BMI 27.12 kg/(m^2). GENERAL: no acute distress HEENT:Atraumatic, normocephalic. NECK: No JVD, no HJR, no carotid bruit, normal carotid upstrokes, no thyromegaly CARDIAC: RRR. Normal S1 and S2. No murmur, rub or gallop. LUNGS: clear to auscultation, no rhonchi, no rales, no wheezes EXTREMITIES: No peripheral edema NEURO: Oriented to person, place, and time. Appropriate and cooperative, no gross deficit. CARDIOVASCULAR MEDICINE TESTING: EKG NORMAL SINUS RHYTHM NONSPECIFIC T WAVE ABNORMALITY ABNORMAL ECG Echo 03/22/2022 CONCLUSIONS: - Exam indication: Limited echo s/p PVI 11/2021 - The left ventricle is normal in size. Left ventricular systolic function is normal. EF = 59 5% (2D biplane) Left ventricular diastolic function was not evaluated due to S/P PVI. - The right ventricle is normal in size. Right ventricular systolic function is normal. - The left atrial cavity is mildly dilated. - There are no significant valvular abnormalities. - Exam was compared with the prior echocardiographic exam performed on 10/04/21. S/P PVI. Sinus rhythm today. CT pulmonary 03/22/22 The aortic valve is trileaflet, and free from calcifications. Mild aortic root ectasia at 4.3 cm. The visualized portions of the ascending and descending thoracic aorta are of normal size. The aortic arch is not included in this study. There is no acute aortic pathology, such as dissection, intramural hematoma, or contained rupture. The coronary arteries have normal origins and courses. There are moderate coronary calcifications, though this study was not optimized for coronary artery evaluation. Cholesterol, Total (mg/dL) Date Value 04/01/2022 173 Your Target Total cholesterol < 200 HDL Cholesterol (mg/dL) Date Value 04/01/2022 52 Your Target HDL good cholesterol > 45 for men, > 55 for women LDL Cholesterol (mg/dL) Date Value 04/01/2022 104 Triglyceride (mg/dL) Date Value 04/01/2022 85 Your Target Triglycerides < 200 ASSESSMENT/PLAN: 1. AF s/p Ablation 12/03/[address] Sena, HTN, DMITRY, h/o tachycardia induced CMP, CHF, DMITRY, Atherosclerosis with coronary calcification on CT, mild aortic root ectasia/dilatation 4.3 cm. - Patient appears volume compensated on today's exam. - On Eliquis 5 mg bid, Valsartan/HCTZ 320/25 mg daily, and Nifedipine (did not tolerate higher than30 mg daily >caused ankle edema). Added on Doxazosin. BP is not optimal. Advised to increase to 2 mg PO daily - S/p DCC by his local dairy consultant (Dr Castle) and subsequent ablation by EP (Dr Sena). - Negative outside stress EKG for ischemia 03/22/2020 - Risk modification is d/w patient including review of ASCVD risk factors, assessment of 10-year ASCVD risk, presence of risk enhancer, potential benefit of life style and statin therapy, potential for adverse effects and drug-drug interactions, cost and patient preferences and values. Last lipid profile is reviewed. D/w patient and follow up low animal fat diet. Aim at LDL <70. Consider Statin if needed. This note was partially generated using Queryly voice recognition system, and there may be some incorrect words, spellings, and punctuation that were not noted in checking the note before saving. Bill Tuttle M.D., F.A.C.C CONTACT INFORMATION: Bill Tuttle M.D., F.A.C.C. Staff Credit Or Loans Officer Timothy Diaz [facility] Mail Code [id number] [facility] [place] [address] CC: To use this Smartlink, specify the provider ID whose address you want to display, e.g., .PROVADDR[1 (where 1 is the provider ID). documented in this encounterMer[facility]05-02-2023 NotePROCEDURE: XR FOOT RT MIN 3 VIEWS, XR ANKLE RT MIN 3 VIEWS HISTORY: Pain in right foot COMPARISON: XR ankle right 10/09/2022 FINDINGS: BONES:Joint space narrowing and periarticular osteophytes involving the first metatarsophalangeal joint. Mild degenerative enthesopathic spurring of the calcaneus. Small corticated ossification dorsal to the talonavicular joint consistent with sequela of remote injury. SOFT TISSUES:No visible soft tissue swelling. EFFUSION:None visible. OTHER: Negative. IMPRESSION: 1. Mild degenerative changes of the foot. 2. No acute bone abnormality. 3. Unremarkable ankle joint. Electronically authenticated by: BRIA PATEL Date: 2022-12-24 12:07[facility]05-02-2023 NotePROCEDURE: XR FOOT RT MIN 3 VIEWS, XR ANKLE RT MIN 3 VIEWS HISTORY: Pain in right foot COMPARISON: XR ankle right 10/09/2022 FINDINGS: BONES:Joint space narrowing and periarticular osteophytes involving the first metatarsophalangeal joint. Mild degenerative enthesopathic spurring of the calcaneus. Small corticated ossification dorsal to the talonavicular joint consistent with sequela of remote injury. SOFT TISSUES:No visible soft tissue swelling. EFFUSION:None visible. OTHER: Negative. IMPRESSION: 1. Mild degenerative changes of the foot. 2. No acute bone abnormality. 3. Unremarkable ankle joint. Electronically authenticated by: BRIA PATEL Date: 2022-12-24 12:07[facility]03-08-2023 Miscellaneous Notes* Telephone Encounter - Lila Alvarenga - 10/30/2022 3:09 PM EST Darius rescheduled for [facility] in March with Dr. Sena. 10/30/2022 * Telephone Encounter - Fabiola Sprague - 10/28/2022 1:45 PM EST Patient's spouse returning office call regarding January that was canceled She requested a message to dr's office as the next opening was not until Nov and the patient can not wait that long for his follow up. She would like to discuss further what to do and pref only Please advise spouse documented in this encounterMer[facility]02-23-2023 History of Present illness Narrative* Ita Tuttle MD - 10/17/2022 3:30 PM EST Images from the original note were not included. [facility] [place] Sissy Zepeda Department of Cardiovascular Medicine SECTION OF REGIONAL CARDIOLOGY OUTPATIENT VISIT DATE October 17, 2022 OUTPATIENT VISIT TYPE Established HISTORY OF PRESENT ILLNESS: Darius Valera is a 62 year old male here today for follow up from [place], [place]. Has h/o AF s/p ablation, HTN, DMITRY, tachycardia induced CMP, and CHF. On Eliquis, Nifedipine XL, Valsartan/HCTZ added on Doxazosin. Sotalol was discontinued. He followedbefore with a local dairy consultant Dr Hooks. Since last visit denies chest pain or SOB, orthopnea or palpitations Had CT of chest which showed atherosclerosis with mild aortic root ectasia 4.3 cm JOANN September 13, 2022 FH: Brother has h/o AF. SOCIAL HISTORY Social History Tobacco Use Smoking status: Never Smokeless tobacco: Never Substance Use Topics Alcohol use: Not Currently Drug use: Never ALLERGIES: Patient has no known allergies. CURRENT MEDICATIONS: Current Outpatient Medications Medication Sig NIFEdipine XL (ADALAT CC) 30 mg 24 hr tablet Take 1 tablet by mouth once daily. doxazosin (CARDURA) 1 mg tablet TAKE 1 TABLET BY MOUTH EVERYDAY AT BEDTIME Valsartan-hydroCHLOROthiazide 320-25 mg per tablet Take 1 tablet by mouth once daily. apixaban (ELIQUIS) 5 mg tab(s) Take 1 tablet by mouth twice daily. sildenafil citrate (VIAGRA ORAL) Take by mouth as needed. Current Facility-Administered Medications Medication Dose Route Frequency perflutren lipid microspheres 1.3 mL in NaCl (PF) 0.9% 10 mL injection (DEFINITY) INTRAVENOUS DIRECTED PRN sodium chloride 0.9 % (flush) 10 mL (BD POSIFLUSH) 10 mL INTRAVENOUS DIRECTED PRN REVIEW OF SYSTEMS: CARDIOVASCULAR: See present history. PULMONARY:No cough or sputum production GASTROINTESTINAL:no bowel changes. GENITOURINARY:no urinary symptoms. ENDOCRINE:no chronic fatigue, significant weight loss/gain, heat/cold intolerance. NEUROLOGICAL:no focal weakness, focal sensory loss, headache, visual changes, seizure activity, ataxia, speech/language loss. RHEUMATOLOGY:no joint swelling, back pain, knee pain, hip pain, or neck pain. INFECTION:no fevers, chills, rigors or night sweats. SKIN:no rash HEMATOLOGY:no bruising, GI bleeding, hematuria, or spontaneous bleeding I have personally interviewed, confirmed and edited the above information if obtained by others - Bill Tuttle M.D. PHYSICAL EXAMINATION: No data found for this vital: BP No data found for this vital: Pulse No data found for this vital: Wt BP 148/88 Pulse 75 Ht 6' 0 (1.83m) Wt 202 lb (91.6kg) SpO2 98% BMI 27.39 kg/(m^2). GENERAL: no acute distress HEENT:Atraumatic, normocephalic. NECK: No JVD, no HJR, no carotid bruit, normal carotid upstrokes, no thyromegaly CARDIAC: RRR. Normal S1 and S2. No murmur, rub or gallop. LUNGS: clear to auscultation, no rhonchi, no rales, no wheezes EXTREMITIES: No peripheral edema NEURO: Oriented to person, place, and time. Appropriate and cooperative, no gross deficit. CARDIOVASCULAR MEDICINE TESTING: EKG 12/04/2021 NORMAL SINUS RHYTHM NONSPECIFIC T WAVE ABNORMALITY ABNORMAL ECG Echo 10/04/21 CONCLUSIONS: - Technically difficult exam due to body habitus. - Exam indication: A.Fib - The left ventricle is normal in size. Left ventricular systolic function is normal. EF = 63 5% (2D biplane) Left ventricular diastolic function was not evaluated due to AF. - The right ventricle is normal in size. Right ventricular systolic function is normal. - Estimated right ventricular systolic pressure is 22 mmHg consistent with normal pulmonary artery pressures. Estimated right atrial pressure is 3 mmHg based on IVC assessment. No significant valvular abnormalities. - The patient has not had a prior CC echocardiographic exam for comparison. Echo 03/22/2022 CONCLUSIONS: - Exam indication: Limited echo s/p PVI 11/2021 - The left ventricle is normal in size. Left ventricular systolic function is normal. EF = 59 5% (2D biplane) Left ventricular diastolic function was not evaluated due to S/P PVI. - The right ventricle is normal in size. Right ventricular systolic function is normal. - The left atrial cavity is mildly dilated. - There are no significant valvular abnormalities. - Exam was compared with the prior CC echocardiographic exam performed on 10/04/21. S/P PVI. Sinus rhythm today. CT pulmonary 03/22/22 The aortic valve is trileaflet, and free from calcifications. Mild aortic root ectasia at 4.3 cm. The visualized portions of the ascending and descending thoracic aorta are of normal size. The aortic arch is not included in this study. There is no acute aortic pathology, such as dissection, intramural hematoma, or contained rupture. The coronary arteries have normal origins and courses. There are moderate coronary calcifications, though this study was not optimized for coronary artery evaluation. Cholesterol, Total (mg/dL) Date Value 04/01/2022 173 Your Target Total cholesterol < 200 HDL Cholesterol (mg/dL) Date Value 04/01/2022 52 Your Target HDL good cholesterol > 45 for men, > 55 for women LDL Cholesterol (mg/dL) Date Value 04/01/2022 104 Triglyceride (mg/dL) Date Value 04/01/2022 85 Your Target Triglycerides < 200 ASSESSMENT/PLAN: 1. AF s/p Ablation 12/03/[address] Sena, HTN, DMITRY, h/o tachycardia induced CMP, CHF, MDITRY, Atherosclerosis with coronary calcification on CT, mild aortic root ectasia/dilatation 4.3 cm. - Patient appears volume compensated on today's exam. - On Eliquis 5 mg bid, Valsartan/HCTZ 320/25 mg daily, and Nifedipine (did not tolerate higher than30 mg daily >caused ankle edema). Added on Cardura 1 mg daily. States that BP in morning can gethigher than 150s. May try Doxazosin 1 mg bid and let me know if any side effects - He gets occasional cramps. Check BMP and MG - S/p DCC by his local dairy consultant (Dr Castle) and subsequent ablation by EP (Dr Sena). - Negative outside stress EKG for ischemia 03/22/2020 - Risk modification is d/w patient including review of ASCVD risk factors, assessment of 10-year ASCVD risk, presence of risk enhancer, potential benefit of life style and statin therapy, potential for adverse effects and drug-drug interactions, cost and patient preferences and values. Last lipid profile is reviewed. D/w patient and follow up low animal fat diet. Aim at LDL <70. Consider Statin if needed. This note was partially generated using Queryly voice recognition system, and there may be some incorrect words, spellings, and punctuation that were not noted in checking the note before saving. Bill Tuttle M.D., Miguel CONTACT INFORMATION: Bill Tuttle M.D., Miguel. Staff Credit Or Loans Officer Timothy Diaz [facility] Mail Code [id number] [facility] [place] [address] CC: To use this Smartlink, specify the provider ID whose address you want to display, e.g., .PROVADDR[1 (where 1 is the provider ID). documented in this encounterMer[facility]02-23-2023 Miscellaneous Notes* Telephone Encounter - Manisha Pinzon APRN.CNP - 10/17/2022 2:45 PM EST The following approved medication requests have been transmitted electronically. Requested Prescriptions Signed Prescriptions Disp Refills NIFEdipine XL (ADALAT CC) 30 mg 24 hr tablet 14 tablet 0 Sig: Take 1 tablet by mouth once daily. Authorizing Provider: ITA TUTTLE Ordering User: MANISHA PINZON APRN.CNP * Telephone Encounter - Ama Busby - 10/16/2022 4:19 PM EST Local [facility] [place] 10 day supply Patient has not received it through mail yet, Today was his last pill, is it possible to do a shortterm refill so he does not miss a dose. Has an appointment tomorrow with us but is requesting to have filled tonight. documented in this encounterMercy [facility]02-20-2023 Miscellaneous Notes* Telephone Encounter - Marquez Giang APRN.CNP - 10/14/2022 12:29 PM EST The following approved medication requests have been transmitted electronically. Requested Prescriptions Signed Prescriptions Disp Refills NIFEdipine XL (ADALAT CC) 30 mg 24 hr tablet 14 tablet 0 Sig: Take 1 tablet by mouth once daily. Authorizing Provider: MARQUEZ GIANG APRN.CNP * Telephone Encounter - Virgie Pretty MA - 10/14/2022 9:04 AM EST Received request for refill of the following medications: Requested Prescriptions Pending Prescriptions Disp Refills NIFEdipine XL (ADALAT CC) 30 mg 24 hr tablet 7 tablet 0 Sig: Take 1 tablet by mouth once daily. Patient requested a 90 day refill. Pharmacy verified and updated accordingly. Patient was last seen in cardiology office: 09/13/2022 Dr. Tuttle. Upcoming appointment scheduled: 10/17/2022. Labs: Hemoglobin (g/dL) Date Value 12/03/2021 16.4 Hematocrit (%) Date Value 12/03/2021 48.3 WBC (k/uL) Date Value 12/03/2021 9.10 Platelet Count (k/uL) Date Value 12/03/2021 129 Creatinine Date Value Ref Range Status 04/01/2022 0.98 0.73 - 1.22 mg/dL Final Creatinine (POCT) Date Value Ref Range Status 03/22/2022 0.90 0.7 - 1.4 mg/dL Final documented in this encounterMercy [facility]02-13-2023 Miscellaneous Notes* Telephone Encounter - Virgie Pretty MA - 10/07/2022 10:40 AM EST Received request for refill of the following medications: Requested Prescriptions Pending Prescriptions Disp Refills doxazosin (CARDURA) 1 mg tablet [Pharmacy Med Name: DOXAZOSIN MESYLATE 1 MG TAB] 90 tablet 3 Sig: TAKE 1 TABLET BY MOUTH EVERYDAY AT BEDTIME Patient requested a 90 day refill. Pharmacy verified and updated accordingly. Patient was last seen in cardiology office: 09/13/2022 Dr. Tuttle. Upcoming appointment scheduled: 10/17/2022. Labs: Hemoglobin (g/dL) Date Value 12/03/2021 16.4 Hematocrit (%) Date Value 12/03/2021 48.3 WBC (k/uL) Date Value 12/03/2021 9.10 Platelet Count (k/uL) Date Value 12/03/2021 129 Creatinine Date Value Ref Range Status 04/01/2022 0.98 0.73 - 1.22 mg/dL Final Creatinine (POCT) Date Value Ref Range Status 03/22/2022 0.90 0.7 - 1.4 mg/dL Final documented in this encounterMercy Health [facility] Hospital01-20-2023 History of Present illness Narrative* Ita Tuttle MD - 09/13/2022 3:30 PM EST Images from the original note were not included. [facility] [place] Sissy Zepeda Department of Cardiovascular Medicine SECTION OF REGIONAL CARDIOLOGY OUTPATIENT VISIT DATE September 13, 2022 OUTPATIENT VISIT TYPE Established HISTORY OF PRESENT ILLNESS: Darius Valera is a 61 year old male here today for follow up from [place], [place]. Has h/o AF s/p ablation, HTN, DMITRY, tachycardia induced CMP, and CHF. On Eliquis, Nifedipine XL, Valsartan/HCTZ. Sotalol was discontinued. He followed before with a local dairy consultant Dr Hooks. Since last visit denies chest pain or SOB, orthopnea or palpitations Had CT of chest which showed atherosclerosis with mild aortic root ectasia 4.3 cm His Nifedipine was increased from 30 mg to [address] Sena> some ankle edema. He tolerated lower dose 30 mg day before. JOANN May 10, 2022 FH: Brother has h/o AF. SOCIAL HISTORY Social History Tobacco Use Smoking status: Never Smokeless tobacco: Never Substance Use Topics Alcohol use: Not Currently Drug use: Never ALLERGIES: Patient has no known allergies. CURRENT MEDICATIONS: Current Outpatient Medications Medication Sig Valsartan-hydroCHLOROthiazide 320-25 mg per tablet Take 1 tablet by mouth once daily. NIFEdipine XL (ADALAT CC) 30 mg 24 hr tablet Take 1 tablet by mouth once daily. apixaban (ELIQUIS) 5 mg tab(s) Take 1 tablet by mouth twice daily. sildenafil citrate (VIAGRA ORAL) Take by mouth as needed. Current Facility-Administered Medications Medication Dose Route Frequency perflutren lipid microspheres 1.3 mL in NaCl (PF) 0.9% 10 mL injection (DEFINITY) INTRAVENOUS DIRECTED PRN sodium chloride 0.9 % (flush) 10 mL (BD POSIFLUSH) 10 mL INTRAVENOUS DIRECTED PRN REVIEW OF SYSTEMS: CARDIOVASCULAR: See present history. PULMONARY:No cough or sputum production GASTROINTESTINAL:no bowel changes. GENITOURINARY:no urinary symptoms. ENDOCRINE:no chronic fatigue, significant weight loss/gain, heat/cold intolerance. NEUROLOGICAL:no focal weakness, focal sensory loss, headache, visual changes, seizure activity, ataxia, speech/language loss. RHEUMATOLOGY:no joint swelling, back pain, knee pain, hip pain, or neck pain. INFECTION:no fevers, chills, rigors or night sweats. SKIN:no rash HEMATOLOGY:no bruising, GI bleeding, hematuria, or spontaneous bleeding I have personally interviewed, confirmed and edited the above information if obtained by others - Bill Tuttle M.D. PHYSICAL EXAMINATION: No data found for this vital: BP No data found for this vital: Pulse No data found for this vital: Wt BP 140/82 Pulse 79 Ht 6' 0 (1.83m) Wt 204 lb (92.5kg) SpO2 98% BMI 27.66 kg/(m^2). GENERAL: no acute distress HEENT:Atraumatic, normocephalic. NECK: No JVD, no HJR, no carotid bruit, normal carotid upstrokes, no thyromegaly CARDIAC: RRR. Normal S1 and S2. No murmur, rub or gallop. No parasternal heave or thrill. [place] not displaced. LUNGS: clear to auscultation, no rhonchi, no rales, no wheezes EXTREMITIES: No peripheral edema NEURO: Oriented to person, place, and time. Appropriate and cooperative, no gross deficit. CARDIOVASCULAR MEDICINE TESTING: EKG 12/04/2021 NORMAL SINUS RHYTHM NONSPECIFIC T WAVE ABNORMALITY ABNORMAL ECG Echo 10/04/21 CONCLUSIONS: - Technically difficult exam due to body habitus. - Exam indication: A.Fib - The left ventricle is normal in size. Left ventricular systolic function is normal. EF = 63 5% (2D biplane) Left ventricular diastolic function was not evaluated due to AF. - The right ventricle is normal in size. Right ventricular systolic function is normal. - Estimated right ventricular systolic pressure is 22 mmHg consistent with normal pulmonary artery pressures. Estimated right atrial pressure is 3 mmHg based on IVC assessment. No significant valvular abnormalities. - The patient has not had a prior CC echocardiographic exam for comparison. Echo 03/22/2022 CONCLUSIONS: - Exam indication: Limited echo s/p PVI 11/2021 - The left ventricle is normal in size. Left ventricular systolic function is normal. EF = 59 5% (2D biplane) Left ventricular diastolic function was not evaluated due to S/P PVI. - The right ventricle is normal in size. Right ventricular systolic function is normal. - The left atrial cavity is mildly dilated. - There are no significant valvular abnormalities. - Exam was compared with the prior CC echocardiographic exam performed on 10/04/21. S/P PVI. Sinus rhythm today. CT pulmonary 03/22/22 The aortic valve is trileaflet, and free from calcifications. Mild aortic root ectasia at 4.3 cm. The visualized portions of the ascending and descending thoracic aorta are of normal size. The aortic arch is not included in this study. There is no acute aortic pathology, such as dissection, intramural hematoma, or contained rupture. The coronary arteries have normal origins and courses. There are moderate coronary calcifications, though this study was not optimized for coronary artery evaluation. Cholesterol, Total (mg/dL) Date Value 04/01/2022 173 Your Target Total cholesterol < 200 HDL Cholesterol (mg/dL) Date Value 04/01/2022 52 Your Target HDL good cholesterol > 45 for men, > 55 for women LDL Cholesterol (mg/dL) Date Value 04/01/2022 104 Triglyceride (mg/dL) Date Value 04/01/2022 85 Your Target Triglycerides < 200 ASSESSMENT/PLAN: 1. AF s/p Ablation 12/03/[address] Sena, HTN, DMITRY, h/o tachycardia induced CMP, CHF, DMITRY, Atherosclerosis with coronary calcification on CT, mild aortic root ectasia/dilatation 4.3 cm. - Patient appears volume compensated on today's exam. - On Eliquis 5 mg bid, Valsartan/HCTZ 320/25 mg daily, and Nifedipine. May reduce to 30 mg daily and start Cardura 1 mg daily - S/p DCC by his local dairy consultant (Dr Castle) and subsequent ablation by EP (Dr Sena). - Negative outside stress EKG for ischemia 03/22/2020 - Risk modification is d/w patient including review of ASCVD risk factors, assessment of 10-year ASCVD risk, presence of risk enhancer, potential benefit of life style and statin therapy, potential for adverse effects and drug-drug interactions, cost and patient preferences and values. Last lipid profile is reviewed. D/w patient and follow up low animal fat diet. Aim at LDL <70. Consider Statin if needed. This note was partially generated using Queryly voice recognition system, and there may be some incorrect words, spellings, and punctuation that were not noted in checking the note before saving. Bill Tuttle M.D., F.A.C.C CONTACT INFORMATION: Bill Tuttle M.D., F.A.C.C. Staff Credit Or Loans Officer Timothy Hdz [facility] Mail Code [id number] [facility] [place] [address] CC: To use this Smartlink, specify the provider ID whose address you want to display, e.g., .PROVADDR[1 (where 1 is the provider ID). documented in this encounterMercy [facility] Hospital12-09-2022 Miscellaneous Notes* Telephone Encounter - Shani Abdul LPN - 08/02/2022 9:25 AM EST Called patient detailed voicemail left Shani Abdul LPN * Telephone Encounter - Shani Abdul LPN - 08/02/2022 9:25 AM EST ----- Message from Ita Tuttle MD sent at 08/01/2022 6:16 PM EST ----- Can you please call patient and ask him to increase Nifedipine 30 mg to twice a day and keep monitoring his BP Thanks Shelbi Tuttle MD ----- Message ----- From: Hiren Sena MD Sent: 08/01/2022 3:41 PM EST To: Ita Tuttle MD His BP control remains poor, with frequent readings >150 systolic, up to the 170s. He's on an ARB/HCTZ combo, and nifedipine 30. He has follow-up with you soon. Should we increase the nifedipine? He used to take it twice a day. Thanks TD [facility] Miscellaneous Notes* Telephone Encounter - Marissa Guzman RN - 08/02/2022 8:50 AM EST Called pt. No answer. Left detailed message per below. * Telephone Encounter - Marissa Guzman RN - 08/02/2022 8:49 AM EST ----- Message from Ita Tuttle MD sent at 08/01/2022 6:16 PM EST ----- Can you please call patient and ask him to increase Nifedipine 30 mg to twice a day and keep monitoring his BP Thanks Shelbi Tuttle MD ----- Message ----- From: Hiren Sena MD Sent: 08/01/2022 3:41 PM EST To: Ita Tuttle MD His BP control remains poor, with frequent readings >150 systolic, up to the 170s. He's on an ARB/HCTZ combo, and nifedipine 30. He has follow-up with you soon. Should we increase the nifedipine? He used to take it twice a day. Thanks TD documented [facility]12[facility]22 History of Present illness Narrative* Hiren Sena MD - 08/01/2022 2:11 PM EST HISTORY OF PRESENT ILLNESS The above relevant present and past medical Hx was verified and the exam findings were confirmed with additional exam findings added/clarified and/or corrected in my exam below. Additional Hx/summaryis as follows: F/U for persistent AF, s/p PVAI in 11/2021. He reports no AF Sx, which he would feel constantly, especially while lying in bed. He is concerned about his BP readings, which have frequently been in [id number]. ACTIVE PROBLEM LIST Atrial Fibrillation, Persistent (Hcc) Benign Essential Htn Dmitry (Obstructive Sleep Apnea) Ponv (Postoperative Nausea and Vomiting) No family history on file. Social History Tobacco Use Smoking status: Never Smokeless tobacco: Never Substance Use Topics Alcohol use: Not Currently Drug use: Never ROS: Constitutional: - Negative Neuro: - Negative Psych: - Negative HEENT: - Negative Endo: - Negative CV: See HPI Pulm: - Negative GI: - Negative : - Negative MSK: - Negative Derm: - Negative Heme: - Negative Cardiac meds are: Nifedipine, an ARB/HCTZ Meds and allergies were reviewed/updated in [facility]. General - Well-developed, well-nourished, no acute distress. HEENT - Normocephalic, atraumatic. Neck -Supple, no JVD, no bruits, no thyromegaly. Heart - RRR, no murmur. Lungs - CTA bilaterally. Abdomen - Positive bowel sounds, no bruit, no organomegaly, no masses. Back - Non-tender. Extremities - No edema. Normal pulses. Neuro - Alert and oriented to person, place, time. ECG today in the office shows: NSR 76 [id number] IMPRESSION: 1. Persistent atrial fibrillation, status post ablation 2. Essential hypertension PLAN: Mr. Valera returns today for follow-up with his . He has had no recurrence of atrial fibrillation symptoms. Its now been about 8 months since his ablation. He inquired about the possibility of stopping anticoagulation. I told him this would be acceptable and that his main risk is hypertension. He is going to consider this but will stay on it for now. He understands that if he stops apixaban he will need to transition over to aspirin. His blood pressure control remains poor. He is to take a higher dose of nifedipine. He has an upcoming appointment with Dr. Tuttle. I told him I will contactDr. Tuttle and see if he recommends increasing the nifedipine. He can follow-up with me in about 6 m ont. If he has no further recurrences of A. fib after that, he can follow-up with me as needed. Hiren Sena MD CC - Bill Tuttle MD This clinical note has been produced using speech recognition software and may contain errors related to that system including grammar, punctuation, spelling, gender and words and phrases that may beinappropriate. documented in this encounterMer[facility]09-16-2022 History of Present illness Narrative* Ita Tuttle MD - 05/10/2022 3:03 PM EDT Images from the original note were not included. [facility] [place] [facility] Department of Cardiovascular Medicine SECTION OF REGIONAL CARDIOLOGY OUTPATIENT VISIT DATE May 10, 2022 OUTPATIENT VISIT TYPE Established HISTORY OF PRESENT ILLNESS: Darius Valera is a 61 year old male here today for follow up from [place], [place]. Has h/o AF s/p ablation, HTN, DMITRY, tachycardia induced CMP, and CHF. On Eliquis, Nifedipine XL, Valsartan/HCTZ, Lasix, Potassium chloride. Sotalol was discontinued. He followed before with a local dairy consultant Dr Hooks. He reported that he was found to be in AF about a year ago meanwhile he developed signs of ADHF with peripheral edema and was treated with Lasix. He underwent stress test and echo and was loaded withSotalol . He underwent DCC for AF recurrence. Since last visit denies chest pain or SOB, orthopnea or edema since his Lasix was cut in half.. He maintained good activities and fitness. Had CT of chest which showed atherosclerosis with mild aortic root ectasia 4.3 cm JOANN March 28, 2022 FH: Brother has h/o AF. SOCIAL HISTORY Social History Tobacco Use Smoking status: Never Smokeless tobacco: Never Substance Use Topics Alcohol use: Not Currently Drug use: Never ALLERGIES: Patient has no known allergies. CURRENT MEDICATIONS: Current Outpatient Medications Medication Sig Valsartan-hydroCHLOROthiazide 320-25 mg per tablet Take 1 tablet by mouth once daily. NIFEdipine XL (ADALAT CC) 30 mg 24 hr tablet Take 1 tablet by mouth once daily. apixaban (ELIQUIS) 5 mg tab(s) Take 1 tablet by mouth twice daily. sildenafil citrate (VIAGRA ORAL) Take by mouth as needed. Current Facility-Administered Medications Medication Dose Route Frequency perflutren lipid microspheres 1.3 mL in NaCl (PF) 0.9% 10 mL injection (DEFINITY) INTRAVENOUS DIRECTED PRN sodium chloride 0.9 % (flush) 10 mL (BD POSIFLUSH) 10 mL INTRAVENOUS DIRECTED PRN REVIEW OF SYSTEMS: CARDIOVASCULAR: See present history. PULMONARY:No cough or sputum production GASTROINTESTINAL:no bowel changes. GENITOURINARY:no urinary symptoms. ENDOCRINE:no chronic fatigue, significant weight loss/gain, heat/cold intolerance. NEUROLOGICAL:no focal weakness, focal sensory loss, headache, visual changes, seizure activity, ataxia, speech/language loss. RHEUMATOLOGY:no joint swelling, back pain, knee pain, hip pain, or neck pain. INFECTION:no fevers, chills, rigors or night sweats. SKIN:no rash HEMATOLOGY:no bruising, GI bleeding, hematuria, or spontaneous bleeding I have personally interviewed, confirmed and edited the above information if obtained by others - Bill Tuttle M.D. PHYSICAL EXAMINATION: No data found for this vital: BP No data found for this vital: Pulse No data found for this vital: Wt BP 128/80 Pulse 72 Wt 197 lb 8 oz (89.6kg) SpO2 98% GENERAL: no acute distress HEENT:Atraumatic, normocephalic. NECK: No JVD, no HJR, no carotid bruit, normal carotid upstrokes, no thyromegaly CARDIAC: RRR. Normal S1 and S2. No murmur, rub or gallop. No parasternal heave or thrill. [place] not displaced. LUNGS: clear to auscultation, no rhonchi, no rales, no wheezes EXTREMITIES: No peripheral edema NEURO: Oriented to person, place, and time. Appropriate and cooperative, no gross deficit. CARDIOVASCULAR MEDICINE TESTING: EKG 12/04/2021 NORMAL SINUS RHYTHM NONSPECIFIC T WAVE ABNORMALITY ABNORMAL ECG Echo 10/04/21 CONCLUSIONS: - Technically difficult exam due to body habitus. - Exam indication: A.Fib - The left ventricle is normal in size. Left ventricular systolic function is normal. EF = 63 5% (2D biplane) Left ventricular diastolic function was not evaluated due to AF. - The right ventricle is normal in size. Right ventricular systolic function is normal. - Estimated right ventricular systolic pressure is 22 mmHg consistent with normal pulmonary artery pressures. Estimated right atrial pressure is 3 mmHg based on IVC assessment. No significant valvular abnormalities. - The patient has not had a prior CC echocardiographic exam for comparison. Echo 03/22/2022 CONCLUSIONS: - Exam indication: Limited echo s/p PVI 11/2021 - The left ventricle is normal in size. Left ventricular systolic function is normal. EF = 59 5% (2D biplane) Left ventricular diastolic function was not evaluated due to S/P PVI. - The right ventricle is normal in size. Right ventricular systolic function is normal. - The left atrial cavity is mildly dilated. - There are no significant valvular abnormalities. - Exam was compared with the prior CC echocardiographic exam performed on 10/04/21. S/P PVI. Sinus rhythm today. CT pulmonary 03/22/22 The aortic valve is trileaflet, and free from calcifications. Mild aortic root ectasia at 4.3 cm. The visualized portions of the ascending and descending thoracic aorta are of normal size. The aortic arch is not included in this study. There is no acute aortic pathology, such as dissection, intramural hematoma, or contained rupture. The coronary arteries have normal origins and courses. There are moderate coronary calcifications, though this study was not optimized for coronary artery evaluation. Cholesterol, Total (mg/dL) Date Value 04/01/2022 173 Your Target Total cholesterol < 200 HDL Cholesterol (mg/dL) Date Value 04/01/2022 52 Your Target HDL good cholesterol > 45 for men, > 55 for women LDL Cholesterol (mg/dL) Date Value 04/01/2022 104 Triglyceride (mg/dL) Date Value 04/01/2022 85 Your Target Triglycerides < 200 ASSESSMENT/PLAN: 1. AF s/p Ablation 12/03/[address] Sena, HTN, DMITRY, h/o tachycardia induced CMP, and CHF, DMITRY, Atherosclerosis with coronary calcification on CT, mild aortic root ectasia/dilatation 4.3 cm. - Patient appears volume compensated on today's exam. Advised to wean off Lasix and K. Advised to monitor BP and let me know if >140/90 - On Eliquis 5 mg bid, Valsartan/HCTZ 320/25 mg daily, and Nifedipine - S/p DCC by his local dairy consultant (Dr Castle) and subsequent ablation by EP (Dr Sena). - Negative outside stress EKG for ischemia 03/22/2020 - Risk modification is d/w patient including review of ASCVD risk factors, assessment of 10-year ASCVD risk, presence of risk enhancer, potential benefit of life style and statin therapy, potential for adverse effects and drug-drug interactions, cost and patient preferences and values. Last lipid profile is reviewed. D/w patient and follow up low animal fat diet. Aim at LDL <70. Consider Statin if needed. This note was partially generated using Queryly voice recognition system, and there may be some incorrect words, spellings, and punctuation that were not noted in checking the note before saving. Bill Tuttle M.D., F.A.C.C CONTACT INFORMATION: Bill Tuttle M.D., Miguel. Staff Credit Or Loans Officer Timothy Diaz [facility] Mail Code [id number] [facility] [place] [address] CC: To use this Smartlink, specify the provider ID whose address you want to display, e.g., .PROVADDR[1 (where 1 is the provider ID). documented in this encounterMer[facility]08-19-2022 History of Present illness Narrative* Bridget Hudson - 04/12/2022 2:39 PM EDT Waiting for LALO for program status/follow up documented in this encounterMer[facility]08-04-2022 History of Present illness Narrative* Ita Tuttle MD - 03/28/2022 3:00 PM EDT Images from the original note were not included. [facility] [place] [facility] Department of Cardiovascular Medicine SECTION OF REGIONAL CARDIOLOGY OUTPATIENT VISIT DATE March 28, 2022 OUTPATIENT VISIT TYPE Established HISTORY OF PRESENT ILLNESS: Darius Valera is a 61 year old male here today for follow up from [place], [place]. Has h/o AF, HTN, DMITRY, tachycardia induced CMP, and CHF. On Eliquis, Nifedipine XL, Valsartan/HCTZ, Lasix, Potassium chloride, and Sotalol. He followed before with a local dairy consultant Dr Hooks. He reported that he was found to be in AF about a year ago meanwhile he developed signs of ADHF with peripheral edema and was treated with Lasix. He underwent stress test and echo and was loaded withSotalol . He underwent DCC for AF recurrence. Since last visit he underwent AF ablation by Dr Sena. Denies chest pain or SOB. He maintained good activities and fitness. Had CT of chest which showed atherosclerosis with mild aortic root ectasia 4.3 cm JOANN December 20, 2021 FH: Brother has h/o AF. SOCIAL HISTORY Social History Tobacco Use Smoking status: Never Smoker Smokeless tobacco: Never Used Substance Use Topics Alcohol use: Not Currently Drug use: Never ALLERGIES: Patient has no known allergies. CURRENT MEDICATIONS: Current Outpatient Medications Medication Sig furosemide (LASIX) 40 mg tablet Take 1 tablet by mouth once daily. Valsartan-hydroCHLOROthiazide 320-25 mg per tablet Take 1 tablet by mouth once daily. NIFEdipine XL (ADALAT CC) 30 mg 24 hr tablet Take 1 tablet by mouth once daily. apixaban (ELIQUIS) 5 mg tab(s) Take 1 tablet by mouth twice daily. potassium chloride ER (K-DUR, KLOR-CON) 10 mEq tablet Take 1 tablet by mouth once daily. sotalol (BETAPACE) 80 mg tablet Take 1 tablet by mouth twice daily. sildenafil citrate (VIAGRA ORAL) Take by mouth as needed. Current Facility-Administered Medications Medication Dose Route Frequency perflutren lipid microspheres 1.3 mL in NaCl (PF) 0.9% 10 mL injection (DEFINITY) INTRAVENOUS DIRECTED PRN sodium chloride 0.9 % (flush) 10 mL (BD POSIFLUSH) 10 mL INTRAVENOUS DIRECTED PRN REVIEW OF SYSTEMS: CARDIOVASCULAR: See present history. PULMONARY:No cough or sputum production GASTROINTESTINAL:no bowel changes. GENITOURINARY:no urinary symptoms. ENDOCRINE:no chronic fatigue, significant weight loss/gain, heat/cold intolerance. NEUROLOGICAL:no focal weakness, focal sensory loss, headache, visual changes, seizure activity, ataxia, speech/language loss. RHEUMATOLOGY:no joint swelling, back pain, knee pain, hip pain, or neck pain. INFECTION:no fevers, chills, rigors or night sweats. SKIN:no rash HEMATOLOGY:no bruising, GI bleeding, hematuria, or spontaneous bleeding I have personally interviewed, confirmed and edited the above information if obtained by others - Bill Tuttle M.D. PHYSICAL EXAMINATION: No data found for this vital: BP No data found for this vital: Pulse No data found for this vital: Wt BP 142/82 Pulse 70 Resp 18 Ht 6' .008 (1.83m) Wt 195 lb (88.5kg) SpO2 98% BMI 26.44 kg/(m^2). GENERAL: no acute distress HEENT:Atraumatic, normocephalic. NECK: No JVD, no HJR, no carotid bruit, normal carotid upstrokes, no thyromegaly CARDIAC: RRR. Normal S1 and S2. No murmur, rub or gallop. No parasternal heave or thrill. [place] not displaced. LUNGS: clear to auscultation, no rhonchi, no rales, no wheezes EXTREMITIES: No peripheral edema NEURO: Oriented to person, place, and time. Appropriate and cooperative, no gross deficit. CARDIOVASCULAR MEDICINE TESTING: EKG 12/04/2021 NORMAL SINUS RHYTHM NONSPECIFIC T WAVE ABNORMALITY ABNORMAL ECG Echo 10/04/21 CONCLUSIONS: - Technically difficult exam due to body habitus. - Exam indication: A.Fib - The left ventricle is normal in size. Left ventricular systolic function is normal. EF = 63 5% (2D biplane) Left ventricular diastolic function was not evaluated due to AF. - The right ventricle is normal in size. Right ventricular systolic function is normal. - Estimated right ventricular systolic pressure is 22 mmHg consistent with normal pulmonary artery pressures. Estimated right atrial pressure is 3 mmHg based on IVC assessment. No significant valvular abnormalities. - The patient has not had a prior CC echocardiographic exam for comparison. Echo 03/22/2022 CONCLUSIONS: - Exam indication: Limited echo s/p PVI 11/2021 - The left ventricle is normal in size. Left ventricular systolic function is normal. EF = 59 5% (2D biplane) Left ventricular diastolic function was not evaluated due to S/P PVI. - The right ventricle is normal in size. Right ventricular systolic function is normal. - The left atrial cavity is mildly dilated. - There are no significant valvular abnormalities. - Exam was compared with the prior CC echocardiographic exam performed on 10/04/21. S/P PVI. Sinus rhythm today. CT pulmonary 03/22/22 The aortic valve is trileaflet, and free from calcifications. Mild aortic root ectasia at 4.3 cm. The visualized portions of the ascending and descending thoracic aorta are of normal size. The aortic arch is not included in this study. There is no acute aortic pathology, such as dissection, intramural hematoma, or contained rupture. The coronary arteries have normal origins and courses. There are moderate coronary calcifications, though this study was not optimized for coronary artery evaluation. ASSESSMENT/PLAN: 1. AF s/p Ablation 12/03/[address] Sena, HTN, DMITRY, h/o tachycardia induced CMP, and CHF, DMITRY, Atherosclerosis with coronary calcification on CT, mild aortic root ectasia/dilatation 4.3 cm. - Had recent CT screening of chest by another provider which showed atherosclerosis and mild aorticroot ectasia at 4.3 cm. - Patient appears volume compensated on today's exam. Advised to reduce Lasix and K to half dose and have follow up to see if can discontinue. May be able to come off Lasix eventually and advised to monitor BP and let me know if >140/90 - On Eliquis 5 mg bid, Valsartan/HCTZ 320/25 mg daily, Lasix 40 mg once daily, and Sotalol 80 mg bid and Nifedipine - S/p DCC by his local dairy consultant (Dr Castle) and subsequent ablation by EP (Dr Sena). - Negative outside stress EKG for ischemia 03/22/2020 - Risk modification is d/w patient including review of ASCVD risk factors, assessment of 10-year ASCVD risk, presence of risk enhancer, potential benefit of life style and statin therapy, potential for adverse effects and drug-drug interactions, cost and patient preferences and values. No recent lipids or LFTs available for review. Check FLP, AST and ALT, BMP. Consider starting Statin to lower lipids This note was partially generated using Queryly voice recognition system, and there may be some incorrect words, spellings, and punctuation that were not noted in checking the note before saving. Bill Tuttle M.D., F.A.C.C CONTACT INFORMATION: Bill Tuttle M.D., F.A.C.C. Staff Credit Or Loans Officer Timothy Diaz [facility] Mail Code [id number] [facility] [place] [address] CC: To use this Smartlink, specify the provider ID whose address you want to display, e.g., .PROVADDR[1 (where 1 is the provider ID). documented in this encounterMercy [facility]08-02-2022 History of Present illness Narrative* Bijal Jackson PA-C - 03/26/2022 1:40 PM EDT Incidental Lung Nodule Enrollment Call attempt: 1st Attempt Call status: Complete Enrolled in Lung Nodule program: Yes Lung Nodule outreach: Enrolled Lung Nodule Program Location: [place] Patient has already discussed lung nodule with his dairy consultant, who placed a consult to lung nodule clinic. He is scheduled to see Lilo Moody later this month. documented in this encounterMercy [facility]07-29-2022 History of Present illness Narrative* Barbara Mccolud APRN.CNP - 03/22/2022 9:59 AM EDT Images from the original note were not included. [facility] [place] [facility] Department of Cardiovascular Medicine SECTION OF CARDIAC PACING and ELECTROPHYSIOLOGY OUTPATIENT VISIT DATE March 22, 2022 OUTPATIENT VISIT TYPE ESTABLISHED CHIEF COMPLAINT: Atrial Fibrillation HISTORY OF PRESENT ILLNESS: Mr. Valera is a 61 year old male who presents today for follow-up visit for atrial fibrillation. Patient is established with Dr. Sena, seen last on 09/27/2021 via virtual visit. PMH of persistent AF on sotalol and eliquis, DMITRY. Mr. Valera underwent PVI on 12/03/[address] Sena. Since the ablation patient has done well and reports no recurrences of AF. He offers no specific complaints today. He does feels more sluggish since he has been on Sotalol. He denies chest pain, shortness of breath, orthopnea, cough, edema, palpitations, PND, lightheadedness or syncope. PAST CARDIAC HISTORY: DMTIRY AF SOCIAL HISTORY Social History Tobacco Use Smoking status: Never Smoker Smokeless tobacco: Never Used Substance Use Topics Alcohol use: Not Currently Drug use: Never No family history on file.ALLERGIES: ALLERGIES No Known Allergies MEDICATIONS: furosemide (LASIX) 40 mg tablet Take 1 tablet by mouth once daily. Valsartan-hydroCHLOROthiazide 320-25 mg per tablet Take 1 tablet by mouth once daily. NIFEdipine XL (ADALAT CC) 30 mg 24 hr tablet Take 1 tablet by mouth once daily. apixaban (ELIQUIS) 5 mg tab(s) Take 1 tablet by mouth twice daily. potassium chloride ER (K-DUR, KLOR-CON) 10 mEq tablet Take 1 tablet by mouth once daily. sotalol (BETAPACE) 80 mg tablet Take 1 tablet by mouth twice daily. iv contrast (will be provided with radiology test) CT Pulm Vein - No IV access, insert saline lock prior to the sedation, infusion, injection for imaging exam. Discontinue saline lock post exam. If Pt. has a central line or IVAD, may access for administration according to line specific nursing protocol. Once exam is complete flush line and de-access according to line specific nursing protocol in the CT contrast administration guidelines link. pantoprazole DR (PROTONIX) 40 mg tablet Take 1 tablet by mouth once daily. sildenafil citrate (VIAGRA ORAL) Take by mouth as needed. REVIEW OF SYSTEMS: General, constitutional: Weight loss or gain- No, Fever or chills-No, Weakness- No, Trouble sleeping-No. Head, Eyes, Ears, Mouth: Headache, head injury-No, Glasses or contact lenses-No, Pain-No, Impaired vision-No, Decreased hearing-No, Ringing in ears-No, Nose bleeds-No, Dental difficulties-No, Bleeding gums-No, Dentures-No. Neck: Swelling-No, Pain-No, Stiffness-No. Respiratory: Cough-No, Spitting up blood-No, Shortness of breath-No, Wheezing or asthma-No. Musculoskeletal: Muscle or joint pain or stiffness-No, Joint swelling-No. Gastrointestinal: Difficulty swallowing-No, Heartburn-No, Change in bowel habits-No, Blood in stool, Dark black stools-No. Neurological/Psychiatric: Weakness, paralysis-No, Numbness-No, Tingling-No, Tremor-No, Nervousness or anxiety-No, Depressed mood-No, Memory loss-No. Skin: Rash-No, Itching-No. Hematological: Easy bruising-No, Easy bleeding-No. Endocrine: Heat or cold intolerance-No, Excessive sweating-No, Frequent urination-No, Frequent thirst-No. PHYSICAL EXAMINATION: BP 147/86 Pulse (!) 56 Ht 182.9 cm (6') Wt 90.7 kg (200 lb) BMI 27.12 kg/m General: Well appearing, in no acute distress, speaking in complete sentences. Neck: No jugular venous distention, no carotid bruits, carotids have a normal upstroke, no palpablethyromegaly. Lungs: Clear to auscultation bilaterally, no wheezing or rhonchi. Heart: Regular rhythm, PMI not displaced, S1, S2 normal, no S3, no S4, no heaves, no rub and no murmur. Abdomen: Soft, nontender, bowel sounds normal, no palpable organomegaly, no bruits. Extremities: No peripheral edema . Grade 2/4 distal pulses bilaterally. Neuro: Oriented to person, place and time, alert, cooperative, gait coordinated. CARDIOVASCULAR MEDICINE TESTING: Last ECHO Result Conclusion ECHO Collected: 10/04/2021 3:00 PM (Final result) Impression: CONCLUSIONS: - Technically difficult exam due to body habitus. - Exam indication: A.Fib - The left ventricle is normal in size. Left ventricular systolic function is normal. EF = 63 5% (2D biplane) Left ventricular diastolic function was not evaluated due to AF. - The right ventricle is normal in size. Right ventricular systolic function is normal. - Estimated right ventricular systolic pressure is 22 mmHg consistent with normal pulmonary artery pressures. Estimated right atrial pressure is 3 mmHg based on IVC assessment. No significant valvular abnormalities. - The patient has not had a prior CC echocardiographic exam for comparison. * * * Final * * * Complete Results Last EKG Result Conclusion ECG COMPLETE Collected: 03/22/2022 9:25 AM (Preliminary result) Impression: SINUS BRADYCARDIA OTHERWISE NORMAL ECG Complete Results 1. How often on average, does your irregular heart rhythm (atrial fibrillation) occur? Not applicable, I have not had an irregular heart rhythm since my ablation 2. How long on average, do the episodes of the irregular heart rhythm last? Not applicable, I have not had an irregular heart rhythm since my ablation 3. How often have you been bothered by this symptom in the past 4 weeks? Palpitations: none, Shortness of breath at rest: none, Shortness of breath during physical activity: none, Exercise intolerance (fatigue during mild physical activity): none, Fatigue at rest: none, Lightheadedness/dizziness: none and Chest pain or pressure: none 4. Have you had an inpatient hospital admission within 30 days of your procedure? No Barbara Mccloud APRN.CNP Record recurrences on or prior to the follow-up date but after the date of the previous follow-up (or after ablation date if this is the first follow-up) Palpitations: No AFib: No Aflutter: No AT or SVT: No Is patient currently in atrial fibrillation? No Arrhythmia recurrence beyond the blanking period: No One year success off AAD Not applicable Barbara Mccloud APRN.CNP Pulmonary CT scan 03/22/2022: IMPRESSION: 1. Normal pulmonary venous anatomy without pulmonary vein stenosis. 2. No left atrial or left atrial appendage thrombus. 3. Moderate ectasia of the aortic root at 4.3 cm 4. Small pulmonary nodules as described in the body of the report. Incidental Finding: Follow-up Acuity: Incidental Finding: Solid: <6 mm (solitary or multiple) Routing Code: N/A Recommendation: No imaging follow-up is recommended Time Frame: N/A Comments: If there are risk factors for lung malignancy, a follow-up chest CT exam could be obtained in 12 months Echo 03/22/22: CONCLUSIONS: - Exam indication: Limited echo s/p PVI 11/2021 - The left ventricle is normal in size. Left ventricular systolic function is normal. EF = 59 5% (2D biplane) Left ventricular diastolic function was not evaluated due to S/P PVI. - The right ventricle is normal in size. Right ventricular systolic function is normal. - The left atrial cavity is mildly dilated. - There are no significant valvular abnormalities. - Exam was compared with the prior echocardiographic exam performed on 10/04/21. S/P PVI. Sinus rhythm today. IMPRESSION: Mr. Valera is a 61 year old male who presents today for follow-up visit for atrial fibrillation. Patient is established with Dr. Sena, seen last on 09/27/2021 via virtual visit. Atrial fibrillation. Maintained on Sotalol. S/p PVI 12/03/2021. All TTMs since the ablation have been SR. Patient is not aware of recurrences. CT scan today showed no PV stenosis. Maintained on Eliquis. CHADS2-Vasc Score Breakdown 1 Total Score 1 History of hypertension Plan; will discuss with Dr. Sena timing of weaning Sotalol off. Patient was advised to stay on Eliquis. Lung nodule. Noted on CT scan today. Plan: referral to lung nodule clinic placed. Patient notified via my chart message. Moderate ectasia of the aortic root at 4.[address] scan today. Patient follows with Dr. Tuttle. PLAN AND RECOMMENDATIONS: Continue Eliquis and Sotalol. Plan to wean off Sotalol (will be reviewed with Dr. Sena) Follow up with Dr. Sena in 3 months. CONTACT INFORMATION: Barbara Mccloud APRN.SADI documented in this encounter[facility]29-[facility] History of Present illness Narrative* RT Salome(R) - 03/22/2022 9:15 AM EDT Radiology Service Progress Note PATIENT NAME: Darius Valera DATE OF SERVICE: March 22, 2022 TIME: 9:08 AM PATIENT IDENTITY VERIFICATION COMPLETED USING TWO (2) IDENTIFIERS: Name and Date of confirmedby patient verbally and Name and Date of confirmed by identification band. FALL SCREENING: Has the patient had 2 falls in the last year or 1 fall with injury or currently using an Ambulatory Assistive Device (Walker, Cane, Wheelchair, Crutches, etc.)? No PATIENT GENDER DATA: Male PATIENT RELEVANT IMPLANT DATA REVIEWED: Yes RADIOLOGY DEPARTMENT: CT; Exam(s) Completed: Cardiac PERIPHERAL IV DATA: Site assessment: Clean,Dry and Intact, Site disposition Discontinued SIGNED BY: RT Salome(R) March 22, 2022 9:08 AM * Fco Bentley RN - 03/22/2022 9:15 AM EDT Radiology Service Progress Note DATE OF SERVICE: March 22, 2022 TIME: 8:50 AM PATIENT WEIGHT: 200LBS PATIENT IDENTITY VERIFICATION COMPLETED USING TWO (2) STANDARD IDENTIFIERS: Name and Date of confirmed by patient verbally. FALL SCREENING: Has the patient had 2 falls in the last year or 1 fall with injury or currently using an Ambulatory Assistive Device (Walker, Cane, Wheelchair, Crutches, etc.)? No PATIENT GENDER DATA: Male ALLERGIES: Reviewed and unchanged CONTRAST ALLERGY: No EXAM: CT -CONTRAST INDUCED NEPHROPATHY RISK FACTORS: Patient age > 60 years CREATININE: Creatinine Date Value Ref Range Status 12/03/2021 0.92 0.73 - 1.22 mg/dL Final 10/22/2021 0.91 0.73 - 1.22 mg/dL Final Creatinine (POCT) Date Value Ref Range Status 03/22/2022 0.90 0.7 - 1.4 mg/dL Final eGFR (POCT) Date Value Ref Range Status 03/22/2022 >60 mL/min/1.73 m2 Final P.O.C.T. RESULTS: POC done: Yes, See Lab Tab March 22, 2022 TREATMENT: No Hydration needed. IV SITE: Ambulatory: A peripheral IV was started in the Left antecubital site with a Angio cath: 20gauge. and A Saline lock was inserted per protocol IV SITE APPEARANCE: Clean,Dry and Intact SIGNATURE: Fco Bentley RN PATIENT NAME: Darius Valera DATE: March 22, 2022 TIME: 8:50 AM documented in this encounterMer[facility]05-19-2022 Miscellaneous Notes* Telephone Encounter - Britney Gamboa APRN.DIAN AVITIA - 01/10/2022 8:51 AM EDT The following approved medication requests have been transmitted electronically. Signed Prescriptions Disp Refills furosemide (LASIX) 40 mg tablet 90 tablet 3 Sig: Take 1 tablet by mouth once daily. BENEDICT: No Valsartan-hydroCHLOROthiazide 320-25 mg per tablet 90 tablet 3 Sig: Take 1 tablet by mouth once daily. BENEDICT: No NIFEdipine XL (ADALAT CC) 30 mg 24 hr tablet 90 tablet 3 Sig: Take 1 tablet by mouth once daily. BENEDICT: No apixaban (ELIQUIS) 5 mg tab(s) 180 tablet 3 Sig: Take 1 tablet by mouth twice daily. BENEDICT: No potassium chloride ER (K-DUR, KLOR-CON) 10 mEq tablet 90 tablet 3 Sig: Take 1 tablet by mouth once daily. BENEDICT: No sotalol (BETAPACE) 80 mg tablet 180 tablet 3 Sig: Take 1 tablet by mouth twice daily. BENEDICT: No Britney Gamboa APRN.CNP, DNP documented in this encounterMer[facility]04-29-2022 Miscellaneous Notes* Telephone Encounter - Yara Rubin RN - 12/21/2021 4:03 PM EDT Closing encounter see encounter note as below: RX INSTRUCTIONS: Patient aware RX will be sent to pharmacy. No need to notify patient. Alicia Chavarria documented in this encounterMer[facility]04-29-2022 Miscellaneous Notes* Telephone Encounter - Ran Driver APRN.CNP - 12/21/2021 3:54 PM EDT Prescription refill on December 21, 2021 and routed to pharmacy to be filled Ran Driver APRN.CNP * Telephone Encounter - Virgie Pretty MA - 12/21/2021 2:10 PM EDT Received request for refill of the following medications: Pending Prescriptions Disp Refills FUROSEMIDE 40 MG TABLET 90 tablet 1 Sig: Take 1 tablet by mouth once daily. BENEDICT: No Patient requested a 90 day refill. Pharmacy verified and updated accordingly. Patient was last seen in cardiology office: 12/20/2021 Dr. Tuttle. Upcoming appointment scheduled: 03/28/2022 Pt Requesting alt pharmacy. Labs: Hemoglobin (g/dL) Date Value 12/03/2021 16.4 Hematocrit (%) Date Value 12/03/2021 48.3 WBC (k/uL) Date Value 12/03/2021 9.10 Platelet Count (k/uL) Date Value 12/03/2021 129 Creatinine Date Value Ref Range Status 12/03/2021 0.92 0.73 - 1.22 mg/dL Final 10/22/2021 0.91 0.73 - 1.22 mg/dL Final * Telephone Encounter - Alicia Chavarria - 12/21/2021 1:25 PM EDT Patient has been identified by name and date of : Yes Pending Prescriptions Disp Refills FUROSEMIDE 40 MG TABLET 90 tablet 1 Sig: Take 1 tablet by mouth once daily. BENEDICT: No Patient is going on vacation in 2 hours. Stated RX went to the wrong pharmacy. RX INSTRUCTIONS: Patient aware RX will be sent to pharmacy. No need to notify patient. Alicia Chavarria documented in this encounterMer[facility]04-28-2022 Miscellaneous Notes* Telephone Encounter - Uyen Martinez RN - 12/20/2021 3:45 PM EDT Pt in for office visit with Dr. Tuttle today. 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 Pt had ablation on 12/03/21. Please sign refill of sotalol if appropriate. Thanks documented in this encounterMercy [facility]04-14-2022 Miscellaneous Notes* Telephone Encounter - Uyen Allison RN - 12/06/2021 4:34 PM EDT Completed form given to admin to fax and upload. Uyen Allison RN * Telephone Encounter - Tayla Burrell - 12/06/2021 1:11 PM EDT Received FMLA paper work today and left on nurses desk to complete. I also uploaded documents to [employer] * Telephone Encounter - Elida Abarca - 12/06/2021 10:49 AM EDT Please contact patient regarding [employer] Empirehart message. documented in this encounterMer[facility]04-13-2022 Miscellaneous Notes* Telephone Encounter - Barbara Mccloud APRN.CNP - 12/05/2021 4:21 PM EDT Received urgent call from [facility] resource RN. Contacted patient. He had PVI with Dr. Sena on Sunday 12/03. Reports chest discomfort, can;t lay down flat and can't take a deep breath. Low grade fever. Tylenol is not effective. I explained to the patient that this is an inflammatory response which is a not uncommon after the ablation. Per Dr. Sena patient to try Ibuprofen 600 mg TID and if he has no improvement by Friday, to [facility] ED for evaluation. Patient verbalized understanding. I asked him to call the office with any updates. Barbara Mccloud APRN.CNP documented in this encounterMer[facility]04-13-2022 Miscellaneous Notes* Telephone Encounter - Cammy Fay RN - 12/05/2021 3:55 PM EDT [facility] Center Inbound Phone Encounter DATE of SERVICE: 12/05/2021 TIME of SERVICE: 3:55 PM Status: Non-urgent, needs attention Service/Provider: EP/JAMIE Garvey M.D. Reason for call: Pain Contact information: [phone] Resolution: Sent to [employer] Comments: Pt states that he is having pain in his bilat upper chest, I can not even lay down . He is taking tylenol and it is not working. He wants to know if he can take something else? Please callto discuss. Cammy Fya RN Date of Resolution: 12/05/2021 Time of Resolution 3:55 PM documented in this encounterMercy [facility]04-13-2022 Miscellaneous Notes* Telephone Encounter - Elida Abarca - 12/05/2021 3:41 PM EDT Please contact patient regarding 382 [employer]st message. * Telephone Encounter - DARIO Jose - 12/05/2021 1:49 PM EDT Patients calling. Patients workplace did not receive [facility] paperwork & patient is needing a return to work date. Please advise [phone] documented in this encounterMercy [facility]04-12-2022 History of Present illness Narrative* Tammy Mendoza - 12/04/2021 11:12 AM EDT TRANSMITTER INSTRUCTIONS Patient Name: Darius Valera [facility] Number: [id number] Fresh battery inserted in monitor Baseline recording not completed Patient instructed 1.) Scheduled and Symptomatic recording instructions 2.) Usage of event button and/or transmission instructions 3.) Maintenance and care of monitor 4.) Landline availability 5.) Return unit at the end of prescribed order 6.) Call with problems [phone] OR [phone] Patient expresses good verbal understanding of instructions Tammy Mendoza documented in this encounterMercy [facility]04-08-2022 History of Present illness Narrative* Griselda Felder RN - 11/30/2021 12:26 PM EDT THE FOLLOWING WAS EVALUATED Motivation To Learn: Interested Family/Significant Other Support: Unable to assess - Family not present Cognitive Ability: Alert and oriented Patient Learns Best By: Individual Instruction The Following Influencing Factors Were Barriers To This Education Session: None The Following Physical Limitations Were Barriers To This Education Session: None Instruction Provided To: Patient Procedure: Pulmonary Vein Ablation/Isolation Pre-procedure information reviewed: Patient ID verified Procedure verified Physician verified Explanation of procedure Sedation level during procedure MD medication instructions from EP lab request: Anticoagulation: Stop :Eliquis (apixaban) Stop medication: Morning of procedure Stop Antiarrhythmic: No Stop Beta Frances/ Calcium Channel Frances: No ASA: N/A Patient denies missing any doses of Eliquis in the last 3 weeks or 21 days. Travel instructions/restrictions Scheduling information Possible same day discharge versus overnight hospital stay Check out time Family waiting area Physician contact with family after procedure Post Procedure Expectations reviewed: Inpatient hospital stay Post procedure antiarrhythmics and anticoagulation will be discussed with Physician, nurse practitioner or Physician library technical assistant upon discharge Instructions for transmitting EKG to Monitoring Center 3 month follow up instructions Contact number for information and questions Patient Evaluation: Verbalizes understanding Follow Up Plan: Follow up as directed by MD. Supplemental Material Given: Written Material Patient education regarding radiation exposure. Instructed By Griselda Felder RN, RN. In Department of CARDIOLOGY. [facility]* Diagnosis AF (paroxysmal atrial fibrillation) (HCC)- Primary Atrial fibrillation documented in this encounter [facility] note* Diagnosis Persistent atrial fibrillation (HCC) Atrial fibrillation documented in this encounter [facility]* Diagnosis Atrial fibrillation, persistent (HCC)- Primary Atrial fibrillation documented in this encounter [facility] note* Diagnosis Atrial fibrillation, persistent (HCC) Atrial fibrillation Benign essential HTN Essential hypertension, benign [facility] Diagnosis Atrial fibrillation, persistent (HCC) Atrial fibrillation Benign essential HTN Essential hypertension, benign Hypertension, unspecified type documented in this encounter [facility]* Diagnosis Atrial fibrillation, persistent (HCC)- Primary Atrial fibrillation Lung nodule Solitary pulmonary nodule DMITRY (obstructive sleep apnea) Obstructive sleep apnea (adult) (pediatric) documented in this encounter [facility] note* Diagnosis Persistent atrial fibrillation (HCC) Atrial fibrillation documented in this encounter [facility]* Diagnosis Lung nodule- Primary Solitary pulmonary nodule documented in this encounter [facility]* Diagnosis Atherosclerosis- Primary Generalized and unspecified atherosclerosis Ascending aorta dilatation (HCC) Thoracic aortic ectasia Tachycardia induced cardiomyopathy (HCC) Tachycardia, unspecified documented in this encounter [facility] note* Diagnosis Tachycardia induced cardiomyopathy (HCC)- Primary Tachycardia, unspecified documented in this encounter [facility] note* Diagnosis Atrial fibrillation, persistent (HCC)- Primary Atrial fibrillation Hypertension, unspecified type DMITRY (obstructive sleep apnea) Obstructive sleep apnea (adult) (pediatric) Benign essential HTN Essential hypertension, benign S/P ablation of atrial fibrillation Other postprocedural status Encounter for current long-term use of anticoagulants Long-term (current) use of anticoagulants documented in this encounter [facility] note* Diagnosis Hypertension, unspecified type- Primary documented in this encounter [facility] note* Diagnosis Hypertension, unspecified type documented in this encounter [facility] note* Diagnosis Medication refill [Z76.0 (ICD-10-CM)]- Primary Issue of repeat prescriptions Hypertension, unspecified type documented in this encounter [facility] note* Diagnosis Hypertension, unspecified type- Primary documented in this encounter [facility] note* Diagnosis Atrial fibrillation, persistent (HCC) Atrial fibrillation Benign essential HTN Essential hypertension, benign documented in this encounter [facility] note* Diagnosis Hypertension, unspecified type- Primary Aortic root dilatation (HCC) Thoracic aortic ectasia documented in this encounter [facility] note* Diagnosis Hypertension, unspecified type documented in this encounter [facility] noteNo assessment information availablePeoples Hospital Work Phone: Evaluation note* Diagnosis Paroxysmal atrial fibrillation (HCC)- Primary Atrial fibrillation Atrial fibrillation, persistent (HCC) Atrial fibrillation Benign essential HTN Essential hypertension, benign Hypertension, unspecified type Prescription refill Issue of repeat prescriptions Tachycardia induced cardiomyopathy (HCC) Tachycardia, unspecified Aortic root dilatation (HCC) Thoracic aortic ectasia documented in this encounter [facility] note* Diagnosis Onset Date Resolution Status Lymphocytosis acute [facility] Work Phone: Evaluation note* Diagnosis Screening for malignant neoplasm of colon- Primary [facility] Diagnosis Tear of medial meniscus of right knee, current, unspecified tear type, subsequent encounter- Primary [facility]* Diagnosis Strain of thoracic back region- Primary Muscle spasm Spasm of muscle [facility]* Diagnosis Strain of thoracic back region- Primary Muscle spasm Spasm of muscle [facility]* Diagnosis Pre-op testing Unspecified pre-operative examination [facility]* Diagnosis History of colon polyps- Primary Screening for malignant neoplasm of colon documented [facility]* Diagnosis S/P right knee arthroscopy- Primary [facility]* Diagnosis Acute non-recurrent maxillary sinusitis- Primary [facility]* Diagnosis Primary hypertension- Primary Unspecified essential hypertension PAF (paroxysmal atrial fibrillation) (HCC) Atrial fibrillation Coronary artery calcification Coronary atherosclerosis of unspecified type of vessel, [place] or graft [facility]* Diagnosis Prescription refill- Primary Issue of repeat prescriptions [facility]* Diagnosis Left hand pain- Primary Pain in soft tissues of limb S/P right knee arthroscopy Right knee pain, unspecified chronicity [facility]* Diagnosis S/P right knee arthroscopy- Primary [facility]* Diagnosis Hypertension, unspecified type [facility] Diagnosis Wellness examination- Primary Muscle cramping Primary hypertension Unspecified essential hypertension Obstructive sleep apnea syndrome Obstructive sleep apnea (adult) (pediatric) Lymphocytosis Lymphocytosis (symptomatic) Arteriosclerotic vascular disease Generalized and unspecified atherosclerosis Erectile dysfunction, unspecified erectile dysfunction type Lung nodule Other diseases of lung, not elsewhere classified History of nephrolithiasis History of COVID-19 Other thrombophilia (HHS-HCC) Thoracic aortic ectasia History of colon polyps PONV (postoperative nausea and vomiting) Nausea with vomiting IFG (impaired fasting glucose) Screening for malignant neoplasm of prostate documented [facility] encounter [facility]* Diagnosis PAF (paroxysmal atrial fibrillation) (HCC)- Primary Atrial fibrillation Atrial fibrillation, persistent (HCC) Atrial fibrillation Benign essential HTN Essential hypertension, benign Hypertension, unspecified type Tachycardia induced cardiomyopathy (HCC) Tachycardia, unspecified documented in this encounter [facility] N[facility]ative* Here for follow-up and management for paroxysmal atrial fibrillation, hypertension, hyperlipidemia a nd obesity. Since last time I saw him he reports symptoms of palpitation. He denies lightheadedness, dizziness or syncope. He did an episode of atrial fibrillation remotely. He was placed on sotalol and converted spontaneously to normal sinus rhythm. He has been in sinus for several years. He denies any other complaint is quite functional class I. * ASSESSMENT: * 1. And atrial fibrillation with recurrence. This is the first recurrence since he was placed on sotalol * 1. Hypertension, controlled * 2. hyperlipidemia, mild, addressed with dietary modification. * 3. Mild obesity * 4. Intermittent episodes of chest pain appears to be primarily due to atrial fibrillation his recent stress test is negative * 5. Edema due to Procardia. Resolved * 6. 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 Patient had mild edema * 7. Long-term anticoagulation tolerating that well * Plan * 1. Management options reviewed with patient. We discussed proceeding with cardioversion increasing his sotalol and ablation. Following lengthy discussion and considering his been in sinus for severalyears on current dose. Elected to proceed with cardioversion in evaluation on outpatient basis for a blation will notify me with which hospital he would prefer to go to. * 2. I advised him to buy a Kardia monitor to allow us for better assessing the etiology of his palpitation * 3. Risk, benefit and alternative anticoagulation and sotalol reviewed with patient at length he understood and agreed * 4. Arrangements for cardioversion will be made [place] [id number] DO Work Phone: History of Present illness Narrative* Here for follow- up and management for paroxysmal atrial fibrillation, hypertension, hyperlipidemia and obesity. Since last time I saw him he reports symptoms of palpitation. He denies lightheadedness, dizziness or syncope. He did an episode of atrial fibrillation remotely. He was placed on sotalol and converted spontaneously to normal sinus rhythm. He has been in sinus for several years. He denies any other complaint is quite functional class I. * ASSESSMENT: * 1. And atrial fibrillation with recurrence. This is the first recurrence since he was placed on sotalol * 1. Hypertension, controlled * 2. hyperlipidemia, mild, addressed with dietary modification. * 3. Mild obesity * 4. Intermittent episodes of chest pain appears to be primarily due to atrial fibrillation his recent stress test is negative * 5. Edema due to Procardia. Resolved * 6. 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 Patient had mild edema * 7. Long-term anticoagulation tolerating that well * Plan * 1. Management options reviewed with patient. We discussed proceeding with cardioversion increasing his sotalol and ablation. Following lengthy discussion and considering his been in sinus for severalyears on current dose. Elected to proceed with cardioversion in evaluation on outpatient basis for a blation will notify me with which hospital he would prefer to go to. * 2. I advised him to buy a Kardia monitor to allow us for better assessing the etiology of his palpitation * 3. Risk, benefit and alternative anticoagulation and sotalol reviewed with patient at length he understood and agreed * 4. Arrangements for cardioversion will be made [facility] Work Phone: History of Present illness Narrative* Here for follow- up and management for paroxysmal atrial fibrillation, hypertension, hyperlipidemia and obesity. Since last time I saw him he reports symptoms of palpitation. He denies lightheadedness, dizziness or syncope. He did an episode of atrial fibrillation remotely. He was placed on sotalol and converted spontaneously to normal sinus rhythm. He has been in sinus for several years. He denies any other complaint is quite functional class I. * ASSESSMENT: * 1. And atrial fibrillation with recurrence. This is the first recurrence since he was placed on sotalol * 1. Hypertension, controlled * 2. hyperlipidemia, mild, addressed with dietary modification. * 3. Mild obesity * 4. Intermittent episodes of chest pain appears to be primarily due to atrial fibrillation his recent stress test is negative * 5. Edema due to Procardia. Resolved * 6. 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 Patient had mild edema * 7. Long-term anticoagulation tolerating that well * Plan * 1. Management options reviewed with patient. We discussed proceeding with cardioversion increasing his sotalol and ablation. Following lengthy discussion and considering his been in sinus for severalyears on current dose. Elected to proceed with cardioversion in evaluation on outpatient basis for a blation will notify me with which hospital he would prefer to go to. * 2. I advised him to buy a Kardia monitor to allow us for better assessing the etiology of his palpitation * 3. Risk, benefit and alternative anticoagulation and sotalol reviewed with patient at length he understood and agreed * 4. Arrangements for cardioversion will be made [facility] Work Phone: History of Present illness Narrative* Grace Haque MD - 06/11/2024 12:00 PM EDT Images from the original note were not included. Patient states post a colonoscopy. This was normal. Patient is without complaints. On examination, he is awake and alert and in no acute distress. Abdomen is soft, nondistended, nontender. 1. Screening for malignant neoplasm of colon Next screening colonoscopy in 10 years. Patient will be discharged from the office and continue to follow with his primary care provider. documented in this encounterNOBates County [facility] HospitalReason for referral (narrative)* Outpatient Procedure (Routine) - Pending Review Specialty Diagnoses / Procedures Referred By Shima carrillo [facility] Diagnoses Persistent atrial fibrillation (HCC) Procedures ECG COMPLETE ECG ROUTINE ECG W/LEAST 12 LDS W/I&R 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 APRN.AGITATOR OPERATOR [address] [place] [id number] [facility] [place] [address] [place] [address] Referral ID Status Reason Start Date Expiration Date Visits Requested Visits Authorized [id number] Pending Review Auto-Generat ed Referral 12/12/2021 12/12/2022 1 1 * MRI/CT (Routine) - Pending Review Specialty Diagnoses / Procedures Referred By Shima carrillo Referred To Contact CT IMAGING Diagnoses Persistent atrial fibrillation (HCC) Procedures CT PULMONARY VEIN W IVCON CT HEART CONTRAST EVAL CARDIAC STRUCTURE&MORPH 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 APRN.CNP [address] [place] [place] [address] Ct Imaging Referral ID Status Reason Start Date Expiration Date Visits Requested Visits Authorized [id number] Pending Review Auto-Generat ed Referral 03/13/2022 01/11/2023 1 1 * Outpatient Procedure (Routine) - Pending Review Specialty Diagnoses / Procedures Referred By Contac t Referred To Contact [facility] [place] Diagnoses Persistent atrial fibrillation (HCC) Procedures ECHO ECHO TTHRC R-T 2D W/WOM-MODE COMPL SPEC&COLR D 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 APRN.CNP [address] [facility] [address] [place] [address] [facility] [place] [address] Referral ID Status Reason Start Date Expiration Date Visits Requested Visits Authorized [id number] Pending Review Auto-Generat ed Referral 12/12/2021 12/12/2022 1 1 [facility] for referral (narrative)* Outpatient Procedure (Routine) - Closed Specialty Diagnoses / Procedures Referred By Contac t Referred To Contact [facility] [place] Diagnoses Atrial fibrillation, persistent (HCC) Procedures ECG COMPLETE ECG ROUTINE ECG W/LEAST 12 LDS W/I&R Hiren Sena MD [id number] [place] [address] Referral ID Status Reason Start Date Expiration Date V isits Requested Visits Authorized [id number] Closed Auto-Generate d Referral 08/01/2022 08/01/2023 1 1 [facility] for referral (narrative)No reason for referral information availablePeoples [facility] Work Phone: Summary Purpose Family History No Family History Records FoundUnknown Family Member Name Dates Details Family history of hypertensi on: Brother, Son(V17.49, Z82.49) Status:Active Unknown Family Member Name Dates Details Family history of hypertensi on: Brother, Son(V17.49, Z82.49) Status:Active Unknown Family Member Name Dates Details Family history of hypertensi on: Brother, Son(V17.49, Z82.49) Status:Active Unknown Family Member Name Dates Details Family history of hypertensi on: Brother, Son(V17.49, Z82.49) Status:Active Unknown Family Member Name Dates Details Family history of hypertensi on: Brother, Son(V17.49, Z82.49) Status:Active Unknown Family Member Name Dates Details Family history of hypertensi on: Brother, Son(V17.49, Z82.49) Status:Active Unknown Family Member Name Dates Details Family history of hypertensi on: Brother, Son(V17.49, Z82.49) Status:Active Relationship Condition Age at Onset Recorded Date/T nalini father Gene's disease Unknown father Unknown Not Specified Unknown Malignant neoplasm Unknown grandparent Malignant neoplasm of pancreas Unknown Relationship Condition Age at Onset Recorded Date/T nalini father Harper's disease Unknown father Unknown mother Unknown Malignant neoplasm Unknown grandparent Malignant neoplasm of pancreas Unknown Advance Directives No Advanced Directives Records FoundDocuments on File Type Date Recorded Patient Cost Accounting Analyst Expl anation Advance Directive(s) 10/18/2021 4:33 PM Documents on File Type Date Recorded Patient Cost Accounting Analyst Expl anation Advance Directive(s) 10/18/2021 4:33 PM Advance Directive Response Recorded Date/ Time Advance Directives No September 29, 2018 12:32pm Chief Complaint DARIUS VALERA is being seen for a 6 month follow-up of.DARIUS VALERA is being seen for a 6 month follow-up of.DARIUS VALERA is being seen for a 6 month follow-up of.DARIUS VALERA is being seen for a 6 month follow-up of.* Patient is being seen for EKG ordered by Saman due to A-Fib. Dr. Davison supervising physici an in suite. Patient complains of legs being very painful and uncomfortable. He is having bilateraledema. He said that he has tried compression socks which helps the lower part of his legs. Swellingbacks up above the knees. Patient has no other complaints at time of visit. On 08/29/21 patient underwent a cardioversion. EKG reviewed by D. Tino, RN advising patient is in A- Flutter. Patient advised to stay on current medications to which he verbalized understanding. * To Dr. Tera Davison MD Reason for Referral Specialty Diagnoses / Procedures Referred By Shima carrillo Referred To Contact Pulmonary Disease Diagnoses Lung nodule Procedures CONSULT TO LUNG NODULE CLINIC OFFICE/OUTPATIENT [facility] 60-74 MINUTES Barbara Mccloud, OUTREACH ASSOCIATE.AGITATOR OPERATOR [address] [place] [address] Referral ID Status Reason Start Date Expiration Date Visits Requested Visits Authorized [id number] Pending Review PCP Requested Referral 03/22/2022 03/22/2023 1 1 Specialty Diagnoses / Procedures Referred By Shima carrillo Referred To Contact CT IMAGING Diagnoses Persistent atrial fibrillation (HCC) Procedures CT PULMONARY VEIN W IVCON CT HEART CONTRAST EVAL CARDIAC STRUCTURE&MORPH JuanForeign carrillo, OUTREACH ASSOCIATE.AGITATOR OPERATOR [address] [place] [address] Ct Imaging Referral ID Status Reason Start Date Expiration Date V isits Requested Visits Authorized [id number] Closed Auto-Generate d Referral 03/13/2022 04/14/2022 1 1 Chief Complaint and Reason for Visit Chief Complaint lymphocytosis NEW - Lymphocytosis Chief Complaint lymphocytosis Follow Up Reason for Visit Lymphocytosis Chief Complaint Admit Date lymphocytosis November 12, 2024 5:5 2am [facility] November 30, 2024 8:00 am Chief Complaint Admit Date [facility] November 30, 2024 8:00 am Follow Up January 21, 2025 2:51p m Chief Complaint Admit Date [facility] November 30, 2024 8:00 am Follow Up January 21, 2025 2:51p m D72.820 February 10, 2025 8:52 am Rash, Exposed to poison miguel February 19, 2 025 9:18am Chief Complaint Admit Date Follow Up January 21, 2025 2:51p m D72.820 February 10, 2025 8:52 am Rash, Exposed to poison miguel February 19, 2 025 9:18am Follow Up after Biopsy March 04, 2025 2 :47pm lymphocytosis March 04, 2025 2:48 pm Reason for Visit Admit Date Contact dermatitis February 19, 2025 9:18 am Additional Source Comments (unrecognized sect ion and content) No Status Records FoundNo Status Records FoundNo Status Records FoundNo Status Records FoundNo Status Records FoundNo Status Records FoundNo Status Records FoundNo Status Records FoundNo Status Records FoundNo Status Records FoundNo Status Records Found INFORMATION SOURCE (unrecogn ized section and content) DATE CREATED AUTHOR 05/19/2020 [facility] DATE CREATED AUTHOR AUTHOR'S ORGANIZ ATION 06/27/2021 [facility] DATE CREATED AUTHOR AUTHOR'S ORGANIZ ATION 08/30/2021 [facility] DATE CREATED AUTHOR AUTHOR'S ORGANIZ ATION 10/18/2022 [facility] DATE CREATED AUTHOR AUTHOR'S ORGANIZ ATION 01/31/2023 [facility] DATE CREATED AUTHOR AUTHOR'S ORGANIZ ATION 04/11/2023 [facility] DATE CREATED AUTHOR AUTHOR'S ORGANIZ ATION 01/18/2024 [facility] DATE CREATED AUTHOR AUTHOR'S ORGANIZ ATION 09/23/2024 [facility] DATE CREATED AUTHOR AUTHOR'S ORGANIZ ATION 03/05/2025 [facility] DATE CREATED AUTHOR AUTHOR'S ORGANIZ ATION 03/20/2025 [facility] DATE CREATED AUTHOR AUTHOR'S ORGANIZ ATION 05/09/2025 [facility] Source Comments (unrecognize d section and content) In the event this informatio n is protected by the Federal Confidentiality of Alcohol and Drug Abuse Patient Records regulations: The Federal rules restrict any use of the information to criminally investigate or prosecute any alcohol or drug abuse patient.[facility] HospitalIn the event this information is protected by the Federal Confidentiality of Alcohol and Drug Abuse Patient Records regulations: The Federal rules restrict any use of the information to criminally investigate or prosecute any alcohol or drug abuse patient.[facility] HospitalIn the event this information is protected by the Federal Confidentiality of Alcohol and Drug Abuse Patient Records regulations: The Federal rules restrict any use of the information to criminally investigate or prosecute any alcohol or drug abuse patient.[facility] HospitalIn the event this information is protected by the Federal Confidentiality of Alcohol and Drug Abuse Patient Records regulations: The Federal rules restrict any use of the information to criminally investigate or prosecute any alcohol or drug abuse patient.[facility] HospitalIn the event this information is protected by the Federal Confidentiality of Alcohol and Drug Abuse Patient Records regulations: The Federal rules restrict any use of the information to criminally investigate or prosecute any alcohol or drug abuse patient.[facility] HospitalIn the event this information is protected by the Federal Confidentiality of Alcohol and Drug Abuse Patient Records regulations: The Federal rules restrict any use of the information to criminally investigate or prosecute any alcohol or drug abuse patient.[facility] HospitalIn the event this information is protected by the Federal Confidentiality of Alcohol and Drug Abuse Patient Records regulations: The Federal rules restrict any use of the information to criminally investigate or prosecute any alcohol or drug abuse patient.[facility] HospitalIn the event this information is protected by the Federal Confidentiality of Alcohol and Drug Abuse Patient Records regulations: The Federal rules restrict any use of the information to criminally investigate or prosecute any alcohol or drug abuse patient.[facility] HospitalIn the event this information is protected by the Federal Confidentiality of Alcohol and Drug Abuse Patient Records regulations: The Federal rules restrict any use of the information to criminally investigate or prosecute any alcohol or drug abuse patient.[facility] HospitalIn the event this information is protected by the Federal Confidentiality of Alcohol and Drug Abuse Patient Records regulations: The Federal rules restrict any use of the information to criminally investigate or prosecute any alcohol or drug abuse patient.[facility] HospitalIn the event this information is protected by the Federal Confidentiality of Alcohol and Drug Abuse Patient Records regulations: The Federal rules restrict any use of the information to criminally investigate or prosecute any alcohol or drug abuse patient.[facility] HospitalIn the event this information is protected by the Federal Confidentiality of Alcohol and Drug Abuse Patient Records regulations: The Federal rules restrict any use of the information to criminally investigate or prosecute any alcohol or drug abuse patient.[facility] HospitalIn the event this information is protected by the Federal Confidentiality of Alcohol and Drug Abuse Patient Records regulations: The Federal rules restrict any use of the information to criminally investigate or prosecute any alcohol or drug abuse patient.[facility] HospitalIn the event this information is protected by the Federal Confidentiality of Alcohol and Drug Abuse Patient Records regulations: The Federal rules restrict any use of the information to criminally investigate or prosecute any alcohol or drug abuse patient.[facility] HospitalIn the event this information is protected by the Federal Confidentiality of Alcohol and Drug Abuse Patient Records regulations: The Federal rules restrict any use of the information to criminally investigate or prosecute any alcohol or drug abuse patient.[facility] HospitalIn the event this information is protected by the Federal Confidentiality of Alcohol and Drug Abuse Patient Records regulations: The Federal rules restrict any use of the information to criminally investigate or prosecute any alcohol or drug abuse patient.[facility] HospitalIn the event this information is protected by the Federal Confidentiality of Alcohol and Drug Abuse Patient Records regulations: The Federal rules restrict any use of the information to criminally investigate or prosecute any alcohol or drug abuse patient.[facility] HospitalIn the event this information is protected by the Federal Confidentiality of Alcohol and Drug Abuse Patient Records regulations: The Federal rules restrict any use of the information to criminally investigate or prosecute any alcohol or drug abuse patient.[facility] HospitalIn the event this information is protected by the Federal Confidentiality of Alcohol and Drug Abuse Patient Records regulations: The Federal rules restrict any use of the information to criminally investigate or prosecute any alcohol or drug abuse patient.[facility] HospitalIn the event this information is protected by the Federal Confidentiality of Alcohol and Drug Abuse Patient Records regulations: The Federal rules restrict any use of the information to criminally investigate or prosecute any alcohol or drug abuse patient.[facility] HospitalIn the event this information is protected by the Federal Confidentiality of Alcohol and Drug Abuse Patient Records regulations: The Federal rules restrict any use of the information to criminally investigate or prosecute any alcohol or drug abuse patient.[facility] HospitalIn the event this information is protected by the Federal Confidentiality of Alcohol and Drug Abuse Patient Records regulations: The Federal rules restrict any use of the information to criminally investigate or prosecute any alcohol or drug abuse patient.[facility] HospitalIn the event this information is protected by the Federal Confidentiality of Alcohol and Drug Abuse Patient Records regulations: The Federal rules restrict any use of the information to criminally investigate or prosecute any alcohol or drug abuse patient.[facility] HospitalIn the event this information is protected by the Federal Confidentiality of Alcohol and Drug Abuse Patient Records regulations: The Federal rules restrict any use of the information to criminally investigate or prosecute any alcohol or drug abuse patient.[facility] HospitalIn the event this information is protected by the Federal Confidentiality of Alcohol and Drug Abuse Patient Records regulations: The Federal rules restrict any use of the information to criminally investigate or prosecute any alcohol or drug abuse patient.[facility] HospitalIn the event this information is protected by the Federal Confidentiality of Alcohol and Drug Abuse Patient Records regulations: The Federal rules restrict any use of the information to criminally investigate or prosecute any alcohol or drug abuse patient.[facility] HospitalIn the event this information is protected by the Federal Confidentiality of Alcohol and Drug Abuse Patient Records regulations: The Federal rules restrict any use of the information to criminally investigate or prosecute any alcohol or drug abuse patient.[facility] HospitalIn the event this information is protected by the Federal Confidentiality of Alcohol and Drug Abuse Patient Records regulations: The Federal rules restrict any use of the information to criminally investigate or prosecute any alcohol or drug abuse patient.[facility] HospitalIn the event this information is protected by the Federal Confidentiality of Alcohol and Drug Abuse Patient Records regulations: The Federal rules restrict any use of the information to criminally investigate or prosecute any alcohol or drug abuse patient.[facility] HospitalIn the event this information is protected by the Federal Confidentiality of Alcohol and Drug Abuse Patient Records regulations: The Federal rules restrict any use of the information to criminally investigate or prosecute any alcohol or drug abuse patient.[facility] HospitalIn the event this information is protected by the Federal Confidentiality of Alcohol and Drug Abuse Patient Records regulations: The Federal rules restrict any use of the information to criminally investigate or prosecute any alcohol or drug abuse patient.[facility] HospitalIn the event this information is protected by the Federal Confidentiality of Alcohol and Drug Abuse Patient Records regulations: The Federal rules restrict any use of the information to criminally investigate or prosecute any alcohol or drug abuse patient.[facility] HospitalIn the event this information is protected by the Federal Confidentiality of Alcohol and Drug Abuse Patient Records regulations: The Federal rules restrict any use of the information to criminally investigate or prosecute any alcohol or drug abuse patient.[facility] HospitalIn the event this information is protected by the Federal Confidentiality of Alcohol and Drug Abuse Patient Records regulations: The Federal rules restrict any use of the information to criminally investigate or prosecute any alcohol or drug abuse patient.[facility] HospitalIn the event this information is protected by the Federal Confidentiality of Alcohol and Drug Abuse Patient Records regulations: The Federal rules restrict any use of the information to criminally investigate or prosecute any alcohol or drug abuse patient.[facility] HospitalIn the event this information is protected by the Federal Confidentiality of Alcohol and Drug Abuse Patient Records regulations: The Federal rules restrict any use of the information to criminally investigate or prosecute any alcohol or drug abuse patient.[facility] HospitalIn the event this information is protected by the Federal Confidentiality of Alcohol and Drug Abuse Patient Records regulations: The Federal rules restrict any use of the information to criminally investigate or prosecute any alcohol or drug abuse patient.[facility] HospitalIn the event this information is protected by the Federal Confidentiality of Alcohol and Drug Abuse Patient Records regulations: The Federal rules restrict any use of the information to criminally investigate or prosecute any alcohol or drug abuse patient.[facility] HospitalIn the event this information is protected by the Federal Confidentiality of Alcohol and Drug Abuse Patient Records regulations: The Federal rules restrict any use of the information to criminally investigate or prosecute any alcohol or drug abuse patient.[facility] HospitalIn the event this information is protected by the Federal Confidentiality of Alcohol and Drug Abuse Patient Records regulations: The Federal rules restrict any use of the information to criminally investigate or prosecute any alcohol or drug abuse patient.[facility] HospitalIn the event this information is protected by the Federal Confidentiality of Alcohol and Drug Abuse Patient Records regulations: The Federal rules restrict any use of the information to criminally investigate or prosecute any alcohol or drug abuse patient.[facility] HospitalIn the event this information is protected by the Federal Confidentiality of Alcohol and Drug Abuse Patient Records regulations: The Federal rules restrict any use of the information to criminally investigate or prosecute any alcohol or drug abuse patient.[facility] HospitalIn the event this information is protected by the Federal Confidentiality of Alcohol and Drug Abuse Patient Records regulations: The Federal rules restrict any use of the information to criminally investigate or prosecute any alcohol or drug abuse patient.[facility] HospitalIn the event this information is protected by the Federal Confidentiality of Alcohol and Drug Abuse Patient Records regulations: The Federal rules restrict any use of the information to criminally investigate or prosecute any alcohol or drug abuse patient.[facility] HospitalIn the event this information is protected by the Federal Confidentiality of Alcohol and Drug Abuse Patient Records regulations: The Federal rules restrict any use of the information to criminally investigate or prosecute any alcohol or drug abuse patient.[facility] HospitalIn the event this information is protected by the Federal Confidentiality of Alcohol and Drug Abuse Patient Records regulations: The Federal rules restrict any use of the information to criminally investigate or prosecute any alcohol or drug abuse patient.[facility] HospitalIn the event this information is protected by the Federal Confidentiality of Alcohol and Drug Abuse Patient Records regulations: The Federal rules restrict any use of the information to criminally investigate or prosecute any alcohol or drug abuse patient.[facility] HospitalIn the event this information is protected by the Federal Confidentiality of Alcohol and Drug Abuse Patient Records regulations: The Federal rules restrict any use of the information to criminally investigate or prosecute any alcohol or drug abuse patient.[facility] HospitalIn the event this information is protected by the Federal Confidentiality of Alcohol and Drug Abuse Patient Records regulations: The Federal rules restrict any use of the information to criminally investigate or prosecute any alcohol or drug abuse patient.[facility] HospitalIn the event this information is protected by the Federal Confidentiality of Alcohol and Drug Abuse Patient Records regulations: The Federal rules restrict any use of the information to criminally investigate or prosecute any alcohol or drug abuse patient.[facility] HospitalIn the event this information is protected by the Federal Confidentiality of Alcohol and Drug Abuse Patient Records regulations: The Federal rules restrict any use of the information to criminally investigate or prosecute any alcohol or drug abuse patient.[facility] HospitalIn the event this information is protected by the Federal Confidentiality of Alcohol and Drug Abuse Patient Records regulations: The Federal rules restrict any use of the information to criminally investigate or prosecute any alcohol or drug abuse patient.[facility] HospitalIn the event this information is protected by the Federal Confidentiality of Alcohol and Drug Abuse Patient Records regulations: The Federal rules restrict any use of the information to criminally investigate or prosecute any alcohol or drug abuse patient.[facility] HospitalIn the event this information is protected by the Federal Confidentiality of Alcohol and Drug Abuse Patient Records regulations: The Federal rules restrict any use of the information to criminally investigate or prosecute any alcohol or drug abuse patient.[facility] HospitalIn the event this information is protected by the Federal Confidentiality of Alcohol and Drug Abuse Patient Records regulations: The Federal rules restrict any use of the information to criminally investigate or prosecute any alcohol or drug abuse patient.[facility] HospitalIn the event this information is protected by the Federal Confidentiality of Alcohol and Drug Abuse Patient Records regulations: The Federal rules restrict any use of the information to criminally investigate or prosecute any alcohol or drug abuse patient.[facility] HospitalIn the event this information is protected by the Federal Confidentiality of Alcohol and Drug Abuse Patient Records regulations: The Federal rules restrict any use of the information to criminally investigate or prosecute any alcohol or drug abuse patient.[facility] HospitalIn the event this information is protected by the Federal Confidentiality of Alcohol and Drug Abuse Patient Records regulations: The Federal rules restrict any use of the information to criminally investigate or prosecute any alcohol or drug abuse patient.[facility] HospitalIn the event this information is protected by the Federal Confidentiality of Alcohol and Drug Abuse Patient Records regulations: The Federal rules restrict any use of the information to criminally investigate or prosecute any alcohol or drug abuse patient.[facility] HospitalIn the event this information is protected by the Federal Confidentiality of Alcohol and Drug Abuse Patient Records regulations: The Federal rules restrict any use of the information to criminally investigate or prosecute any alcohol or drug abuse patient.[facility] HospitalIn the event this information is protected by the Federal Confidentiality of Alcohol and Drug Abuse Patient Records regulations: The Federal rules restrict any use of the information to criminally investigate or prosecute any alcohol or drug abuse patient.[facility] HospitalIn the event this information is protected by the Federal Confidentiality of Alcohol and Drug Abuse Patient Records regulations: The Federal rules restrict any use of the information to criminally investigate or prosecute any alcohol or drug abuse patient.[facility] HospitalIn the event this information is protected by the Federal Confidentiality of Alcohol and Drug Abuse Patient Records regulations: The Federal rules restrict any use of the information to criminally investigate or prosecute any alcohol or drug abuse patient.[facility] HospitalIn the event this information is protected by the Federal Confidentiality of Alcohol and Drug Abuse Patient Records regulations: The Federal rules restrict any use of the information to criminally investigate or prosecute any alcohol or drug abuse patient.[facility] HospitalIn the event this information is protected by the Federal Confidentiality of Alcohol and Drug Abuse Patient Records regulations: The Federal rules restrict any use of the information to criminally investigate or prosecute any alcohol or drug abuse patient.[facility] HospitalIn the event this information is protected by the Federal Confidentiality of Alcohol and Drug Abuse Patient Records regulations: The Federal rules restrict any use of the information to criminally investigate or prosecute any alcohol or drug abuse patient.[facility] HospitalIn the event this information is protected by the Federal Confidentiality of Alcohol and Drug Abuse Patient Records regulations: The Federal rules restrict any use of the information to criminally investigate or prosecute any alcohol or drug abuse patient.[facility] Reason for Visit (unrecogniz ed section and content) Reason Comments Patient Education PVI Reason Comments Transmitter 3 months Reason Comments Post Dc Program Call - Needs Attn Reason Comments chest discomfort after ablation Reason Onset Date Comments Refill Request 12/20/2021 Reason Onset Date Comments Refill Request 12/21/2021 Reason Comments Atrial Fibrillation Reason Comments Radiology CT Specialty Diagnoses / [facility] IMAGING Diagnoses Persistent atrial fibrillation (HCC) Procedures CT PULMONARY VEIN W IVCON CT HEART CONTRAST EVAL CARDIAC STRUCTURE&MORPH JuanForeign, OUTREACH ASSOCIATE.AGITATOR OPERATOR [address] [place] [address] Ct Imaging Referral ID Status Reason Start Date Expiration Date V isits Requested Visits Authorized [id number] Closed Auto-Generate d Referral 03/13/2022 04/14/2022 1 1 Reason Comments Established Patient Follow-Up results fo rm CT scan Reason Comments Established Patient 6 week follow up Reason Comments Cardiology Follow Up Reason Comments Patient Update Reason Comments Results Reason Comments Cardiology Follow Up Reason Comments Refill Request Reason Onset Date Comments Refill Request 10/13/2022 Reason Comments Patient Question Reason Comments Follow Up Reason Comments 1st po colonoscopy Reason Comments Knee Pain Reason Comments Back Pain Reason Comments Consult Screening colonoscop y Specialty Diagnoses / Procedures [facility] Referred To Contact General Surgery Diagnoses Screening for malignant neoplasm of colon Procedures SD OFFICE/OUTPATIENT NEW HIGH MDM 60 MINUTES Linda Keys PA [address] [place] [address] Grace Bucio MD [address] [place] [address] Referral ID Status Reason Start Date Expiration Date V isits Requested Visits Authorized [id number] Closed Specialty Services Required 02/09/2024 08/07/2024 1 1 Reason Comments Knee Pain Post-op Reason Comments Knee Pain Post-op Pain Reason Comments Pain Reason Onset Date Comments Refill Request 01/01/2025 Care Teams (unrecognized sec tion and content) Handkerchief Sample Clerk Relationship Specialty Start Date [place]a Tuttle [place] [id number] [place] [address] [place] [address] Primary Staff Physician Cardiology 03/22/22 Handkerchief Sample Clerk Relationship Specialty Start Date End Date Ita Tuttle MD [address] [place] [address] [place] [address] Primary Staff Physician Cardiology 03/22/22 Handkerchief Sample Clerk Relationship Specialty Start Date End Date Ita Tuttle MD [address] [place] [address], [place] [address] Primary Staff Physician Cardiology 03/22/22 Handkerchief Sample Clerk Relationship Specialty Start Date End Date Ita Tuttle MD [address] [place] [address], [place] [address] Primary Staff Physician Cardiology 03/22/22 Handkerchief Sample Clerk Relationship Specialty Start Date End Date Iat Tuttle MD [address] [place] [address], [place] [address] Primary Staff Physician Cardiology 03/22/22 Handkerchief Sample Clerk Relationship Specialty Start Date End Date Ita Tuttle MD [address] [place] [address], [place] [address] Primary Staff Physician Cardiology 03/22/22 Handkerchief Sample Clerk Relationship Specialty Start Date End Date Ita Tuttle MD [address] [place] [address], [place] [address] Primary Staff Physician Cardiology 03/22/22 Handkerchief Sample Clerk Relationship Specialty Start Date End Date Ita Tuttle MD [address] [place] [address], [place] [address] Primary Staff Physician Cardiology 03/22/22 Handkerchief Sample Clerk Relationship Specialty Start Date End Date Ita Tuttle MD [address] [place] [address], [place] [address] Primary Staff Physician Cardiology 03/22/22 Handkerchief Sample Clerk Relationship Specialty [place] [address] [place] [address] Primary Staff Physician Cardiology 03/22/22 Handkerchief Sample Clerk Relationship Specialty [place] [address] [place] [address] Primary Staff Physician Cardiology 03/22/22 Handkerchief Sample Clerk Relationship Specialty [place] [address] [place] [address] Primary Staff Physician Cardiology 03/22/22 Handkerchief Sample Clerk Relationship Specialty [place] [address] [place] [address] Primary Staff Physician Cardiology 03/22/22 Handkerchief Sample Clerk Relationship Specialty [place] [address] [place] [address] Primary Staff Physician Cardiology 03/22/22 Handkerchief Sample Clerk Relationship Specialty [place] [address] [place] [address] Primary Staff Physician Cardiology 03/22/22 Handkerchief Sample Clerk Relationship Specialty [place] [address] [place] [address] Primary Staff Physician Cardiology 03/22/22 Handkerchief Sample Clerk Relationship Specialty Start Date [place] It[place]uttle [place] [id number] [place] [address] Primary Staff Physician Cardiology 03/22/22 Handkerchief Sample Clerk Relationship Specialty [place] [address] [place] [address] Primary Staff Physician Cardiology 03/22/22 Team Status: Active Member Role Status Dates Linda Keys PA-C Primary Care Provider Active Team Status: Active Member Role Status Dates Sedrick Ye MD Primary Care Provider Active S tart: January 23, 2024 Christian Carlos II, DO Attending Provider Active Start: January 23, 2024 [facility] [place] Referring Provider Active St art: January 23, 2024 Team Status: Inactive Member Role Status Dates Christian Carlos II, DO Attending Provider Active Start: January 23, 2024 End: January 23, 2024 Linda Keys PA-C Primary Care Provide r, Referring Provider Active Start: January 23, 2024 End: January 23, 2024 Handkerchief Sample Clerk Relationship Specialty [place] [address] [place] [address] Primary Staff Physician Cardiology 03/22/22 Handkerchief Sample Clerk Relationship Specialty [place] [address] [place] [address] Primary Staff Physician Cardiology 03/22/22 Team Status: Active Member Role Status Dates Sedrick Ye MD Primary Care Provider Active S tart: April 23, 2024 Christian Carlos II, DO Attending Provider Active Start: April 23, 2024 [facility] [place] Referring Provider Active St art: April 23, 2024 Team Status: Inactive Member Role Status Dates Jose Solares APRN Attending Provider Acti ve Start: April 23, 2024 End: April 23, 2024 Handkerchief Sample Clerk Relationship Specialty Start Date End Date Linda Keys PA [address] [place] [address] PCP - General Family Medicine 08/06/23 Linda Keys PA [address] [place] [address] PCP - Medical [employer] 02/22/23 08/24/99 Handkerchief Sample Clerk Relationship Specialty Start Date End Date Linda Keys PA [address] [place] [address] PCP - General [facility] 08/06/23 Linda Kesy PA [address] [place] [address] PCP - [facility] 02/22/23 08/24/99 Handkerchief Sample Clerk Relationship Specialty Start Date End Date Linda Keys PA [address] [place] [address] PCP - General Family Medicine 08/06/23 Linda Keys PA [address] [place] [address] PCP - Medical [employer] [facility] 02/22/23 08/24/99 Handkerchief Sample Clerk Relationship Specialty Start Date End Date Linda Keys PA [address] [place] [address] PCP - General Family Medicine 08/06/23 Linda Keys PA [address] [place] [address] PCP - Medical [employer] 02/22/23 08/24/99 Handkerchief Sample Clerk Relationship Specialty Start Date End Date Linda Keys PA [address] [place] [address] PCP - General Family Medicine 08/06/23 Linda Keys PA [address] [place] [address] PCP - Medical [employer] 02/22/23 08/24/99 Handkerchief Sample Clerk Relationship Specialty Start Date End Date Linda Keys PA [address] [facility] [address] [place] [address] PCP - General Family Medicine 08/06/23 Linda Keys PA [address] [facility] [address] [place] [address] PCP - Medical [employer] 02/22/23 08/24/99 Handkerchief Sample Clerk Relationship Specialty [place] [address] [place], [place] [id number] Primary Staff Physician Cardiology 03/22/22 Handkerchief Sample Clerk Relationship Specialty Start Date End Date Linda Keys PA [address] [facility] [address] [place] [address] PCP - General Family Medicine 08/06/23 Linda Keys PA [address] [place] [address] PCP - Medical [employer] 02/22/23 08/24/99 Handkerchief Sample Clerk Relationship Specialty Start Date End Date Linda Keys PA [address] [facility] [address] [place] [address] PCP - General Family Medicine 08/06/23 Handkerchief Sample Clerk Relationship Specialty Start Date End Date Linda Keys PA [address] [facility] [address] [place] [address] PCP - General Family Medicine 08/06/23 Handkerchief Sample Clerk Relationship Specialty Start Date End Date Linda Keys PA [address] [facility] [address] [place] [address] PCP - General Family Medicine 08/06/23 Handkerchief Sample Clerk Relationship Specialty Start Date End Date Linda Keys PA [address] [facility] [address] [place] [address] PCP - General Family Medicine 08/06/23 Linda Keys PA [address] [facility] [address] [place] [address] PCP - Medical [employer] 02/22/23 08/24/99 Handkerchief Sample Clerk Relationship Specialty [place] [address] [place] [address] Primary Staff Physician Cardiology 03/22/22 Handkerchief Sample Clerk Relationship Specialty Start Date End Date Linda Keys PA [address] [facility] [address] [place] [address] PCP - General Family Medicine 08/06/23 Linda Keys PA [address] [facility] [address] [place] [address] PCP - Medical [employer] 02/22/23 08/24/99 Team Status: Active Member Role Status Dates NON STAFF Primary Care Provider Active Team Status: Active Member Role Status Dates Sedrick Ye MD Primary Care Provider Active S tart: November 12, 2024 Christian Carlos II, DO Attending Provider Active Start: November 12, 2024 [facility] [place] Referring Provider Active St art: November 12, 2024 Team Status: Inactive Member Role Status Dates NON STAFF Primary Care Provider Active Start: November 30, 2024 End: November 30, 2024 Russell Gómez - [facility] , DO [facility] Attending Provider Active Start: November 30, 2024 End: November 30, 2024 Handkerchief Sample Clerk Relationship Specialty [place] [address] [place] [address] Primary Staff Physician Cardiology 03/22/22 Handkerchief Sample Clerk Relationship Specialty Start Date End Date Linda Keys PA [address] [facility] [address] [place] [address] PCP - General Family Medicine 08/06/23 Linda Keys PA [address] [facility] [address] [place] [address] PCP - Medical [employer] 02/22/23 08/24/99 Handkerchief Sample Clerk Relationship Specialty Start Date End Date Linda Keys PA [address] [facility] [address] [place] [address] PCP - General Family Medicine 08/06/23 Linda Keys PA [address] [facility] [address] [place] [address] PCP - Medical [employer] 02/22/23 08/24/99 Team Status: Active Member Role Status Dates [facility] [place] Primary Care Provider Active Team Status: Inactive Member Role Status Dates Christian Carlos II, DO Attending Provider Active Start: January 21, 2025 End: January 21, 2025 [facility] [place] Primary Care Provider Active Start: January 21, 2025 End: January 21, 2025 [facility] [place] Referring Provider Active St art: January 21, 2025 Team Status: Inactive Member Role Status Dates [facility] [place] Primary Care Provider Active Start: February 10, 2025 End: February 10, 2025 Christian Carlos II, DO Attending Provider Active Start: February 10, 2025 End: February 10, 2025 Team Status: Inactive Member Role Status Dates [facility] [place] Primary Care Provider Active Start: February 19, 2025 End: February 19, 2025 Hannah Queen APRN Attending Provider Active Start: February 19, 2025 End: February 19, 2025 Handkerchief Sample Clerk Relationship Specialty Start Date End Date Linda Keys PA [address] [facility] [address] [place] [address] PCP - General Family Medicine 08/06/23 Linda Keys PA [address] [place] [address] PCP - Medical [employer] 02/22/23 08/24/99 Team Status: Inactive Member Role Status Dates Christian Carlos II, DO Attending Provider Active Start: January 21, 2025 End: January 21, 2025 [facility] [place] Primary Care Provider Active Start: January 21, 2025 End: January 21, 2025 Team Status: Inactive Member Role Status Dates [facility] [place] Primary Care Provider Active Start: March 04, 2025 End: March 04, 2025 Christian Carlos II, DO Attending Provider Active Start: March 04, 2025 End: March 04, 2025 Team Status: Active Member Role Status Dates Sedrick Ye MD Primary Care Provider Active S tart: March 04, 2025 Christian Carlos II, DO Attending Provider Active Start: March 04, 2025 [facility] [place] Referring Provider Active St art: March 04, 2025 Handkerchief Sample Clerk Relationship Specialty [place] [address] [place] [address] Primary Staff Physician Cardiology 03/22/22 Goals (unrecognized section and content) Goals may be documented in a n alternate sectionGoals may be documented in an alternate sectionGoals may be documented in an alternate sectionGoals may be documented in an alternate sectionGoals may be documented in an alternate sectionGoals may be documented in an alternate section FOR RECORDS PERTAINING TO PATIENTS WHO ARE OR HAVE BEEN ENROLLED IN A CHEMICAL DEPENDENCY/SUBSTANCEABUSE PROGRAM, SOME INFORMATION MAY BE OMITTED. This clinical summary was aggregated from multiple sources. Caution should be exercised in using it in the provision of clinical care. This summary normalizes information from multiple sources, and as a consequence, information in this document may materially change the coding, format and clinical context of patient data. In addition, data may be omitted in some cases. CLINICAL DECISIONS SHOULD BE BASED ON THE PRIMARY CLINICAL RECORDS. [employer] [facility]. provides no warranty or guarantee of the accuracy or completeness of information in this document.
[2025-05-09 09:43] LABS: Hematocrit 24.0 % (42.0-54.0); Hemoglobin 8.0 g/dL (14.0-18.0); Mean Corpuscular HGB Conc 33.3 g/dL (29.9-35.2); Mean Corpuscular Hemoglobin 37.9 pg (25.9-34.0); Mean Corpuscular Volume 113.7 fL (80.0-94.0); Platelet Count 182 10^3/uL (150-450); Red Blood Count 2.11 10^6/uL (4.70-6.10); White Blood Count 26.3 10^3/uL (4.0-11.0)
[2025-05-09 10:12] LABS: Alanine Aminotransferase 34 U/L (16-63); Albumin Globulin Ratio 1.5; Albumin Level 3.7 g/dL (3.4-5.0); Alkaline Phosphatase 81 U/L (46-116); Anion Gap 11.6; Aspartate Amino Transferase 33 U/L (15-37); Blood Urea Nitrogen 17.0 mg/dL (7.0-18.0); Calcium 8.6 mg/dL (8.5-10.1); Carbon Dioxide 30.0 mmol/L (21.0-32.0); Chloride 105 mmol/L (98-107); Estimated GFR (African America >60 (>=60 mL/min/1.73m^2); Estimated GFR (Non-African Ame >60 (>=60 mL/min/1.73m^2); Globulin 2.4 g/dL; Glucose 89 mg/dL (74-106); Potassium 3.6 mmol/L (3.5-5.1); Sodium 143 mmol/L (136-145); Total Protein 6.1 g/dL (6.4-8.2)
[2025-05-09 10:21] LABS: Ferritin 271.0 ng/mL (26.0-388.0)
[2025-05-09 10:25] LABS: Basophils Abs Manual 0.26 10^3/uL (0.00-0.10); Basophils Percent Manual 1.0 % (0.2-2.0); Eosinophils Absolute Manual 0.00 10^3/uL (0.00-0.70); Eosinophils Percent Manual 0.0 % (0.9-7.0); Lymphocytes Absolute Manual 14.99 10^3/uL (1.20-3.80); Lymphocytes Percent Manual 57.0 % (20.5-60.0); Monocytes Absolute Manual 1.05 10^3/uL (0.30-0.80); Monocytes Percent Manual 4.0 % (1.7-12.0); Segmented Neut Absolute Manual 9.99 10^3/uL (1.4-6.5); Segmented Neutrophils % Manual 38.0 (43.0-75.0); Smudge Cells SEEN
[2025-05-09 10:26] LABS: Anisocytosis 1+; Macrocytosis 1+
[2025-05-09 10:31] LABS: Iron 137.0 ug/dL (65.0-175.0); Percent Iron Saturation 51.5 %; Total Iron Binding Capacity 266.0 ug/dL (250.0-450.0)
== END 2025-05-09 08:40 | disposition home or self-care (01) ==
LOC: LAB 08:40
PROVIDERS: PCP Physician Assistant; Visit Provider Internal Medicine
DX: D72.820 Lymphocytosis (symptomatic) (principal)
CPT/HCPCS: 36415; 80053; 82728; 83010; 83540; 83550; 85007; 85027; 85652; 86850; 86870; 86900; 86901

== ENCOUNTER 2025-05-16 06:24 | Outpatient (OUT) | payer MEDICARE, SELFPAY ==
--- OUTSIDE RECORDS SUMMARY | 2025-05-16 06:38 | XMS_ITS | CCD ---
Author Organization [facility] Care Team Providers Care Certified Registered Nurse Anesthetist Name Role Phone Sedrick Ye Unavailable Unavailable Unavailable Unavailable Primary Care Provider UnavailIta Lockwood MD Unavailable Ita Tuttle MD Unavailable [phone] Ita Tuttle MD Unavailable ITA TUTTLE Referring Unavailable YE ., DR [...] Unavailable AMANDA, DR BRIA Morales Consulting Unavailable CASSI ., DR SEDRICK Whipple Primary Care Unavailable [...] OLSEN Attending Unavailable Ita Tuttle MD Unavailable [phone] Iesha Gamino Attending Unavailable Iesha Gamino Attending Unavailable Iesha Gamino Attending Unavailable Iesha Gamino Referring Unavailable MD Sedrick Ye Primary Care Provider [phone] DO Christian Carlos II Attending Provider [phone] Hemjhonatan, ALCOHOL LAW ENFORCEMENT AGENT-C Linda Referring Provider MD Sedrick Ye Primary Care Provider [phone] DO Christian Carlos II Attending Provider Hemjhonatan, ALCOHOL LAW ENFORCEMENT AGENT-C Linda Referring Provider Hemmer Linda PIEDRA Primary Care Provider [phone] Hemmer Linda PIEDRA Unavailable [phone] TONY ARMSTRONG Attending Unavaila ble WATTAR, BILL R Referring Unavailable WATTAR, BILL R Attending Unavailable WATTAR, BILL R Referring Unavailable WATTAR, BILL R Attending Unavailable Sedrick Ye MD Primary Care Provider [phone] Christian Carlos DO Attending Provider [phone] Hemmer ALCOHOL LAW ENFORCEMENT AGENT-CLinda Referring Provider NON STAFF Primary Care Provider Unavailjean-paul Gómez [facility] Russell CAMACHO Attending Provider Christian Carlos DO Attending Provider Hemjhonatan ALCOHOL LAW ENFORCEMENT AGENT-CLinda Primary Care Provider Hannah Queen APRN Attending Provider [phone] Sedrick Ye MD Primary Care Provider Massimo ALCOHOL LAW ENFORCEMENT AGENT-CLinda Referring Provider [phone] LINDA JANSEN Attending Unavailable KATIUSKA IRBYSON A Referring Unavailable KATIUSKA IRBYSON A Attending Unavailable MAHAMED, EULALIO A Referring Unavailable BROWN, EULALIO A Referring Unavailable KATIUSKA IRBYSON A Attending Unavailable EULALIO IRBY A Referring Unavailable GRACE HONEYCUTT Attending Unavailable LINDA JANSEN Referring Unavailable SEDRICK TROTTER Attending Unavailable GRACE HONEYCUTT Attending Unavailable KATIUSKA IRBYSON A Attending Unavailable MAHAMED, EULALIO A Referring Unavailable KATIUSKA IRBYSON A Attending Unavailable KATIUSKA IRBYSON A Referring Unavailable LINDA JANSEN Attending Unavailable EULALIO IRBY Attending Unavailable LINDA JANSEN Attending Unavailable EULALIO IRBY Referring Unavailable EULALIO IRBY Referring Unavailable EULALIO IRBY Referring Unavailable EULALIO IRBY Attending Unavailable EULALIO IRBY Referring Unavailable Massimo ALCOHOL LAW ENFORCEMENT AGENT-C, Linda Primary Care Provider [phone] Christian Carlos DO Attending Provider Killian LAZCANOCGracie Attending Provider Massimo ALCOHOL LAW ENFORCEMENT AGENT-CLinda Referring Provider Linda Jansen Primary Care Unavailable Breanna IIChristian Admitting Unavaila ble Adamowanjum IIChristian Attending Unavaila ble NON STAFF Primary Care Unavailable Hannah Queen Admitting Unavailable Hannah Queen Attending Unavailable Linda Jansen Primary Care Unavailable Linda Jansen Referring Unavailable Breanna IIChristian Admitting Unavaila ble Adamomar IIChristian Attending Unavaila ble NON STAFF Primary Care Unavailable Rico Russell BALDWIN Admitting Unavailable [facility] Russell BALDWIN Attending Unavailable Medications Current Medications Medication Drug Class(es) [...] mouth Daily Active b complex vitamins capsule (20 sources) take 1 capsule by mouth once [...] tablet by mouth once daily at bedtime Start: 01-17-2023 End: 07-31-2023 take 1.5 tablets [...] oral capsule (5 sources) Tricyclic Antidepressant End: 024 doxepin (SINEquan) 10 MG capsule Take 10 mg by mouth as needed at bedtime for sleep 05/21/2024 Discontinued folic acid 1 mg oral tablet (1 source) Start: 025 take 1 tablet by mouth once daily hydroCHLOROthiazide 25 mg / valsartan 320 mg oral tablet (20 sources) Thiazide Diuretic, Angiotensin 2 Receptor Frances Start: 025 take 1 tablet by mouth once daily Start: 05-04-2020 End: 04-04-2025 take 1 tablet by mouth once daily in the morning Valsartan-Hydrochlorothiazide 320-25 mg Tablet Discontinued 1 TAB PO Every morning May 04, 2020 12:00am March 04, 2025 2:54pm take 1 tablet by marco th in the morning valsartan-hydroCHLOROthiazide (Diovan-HC T) 320-25 MG tablet Take 1 tablet by mouth in the morning. Active Comment on above: Take 1 tablet by marco th once daily. TAKE ONE TABLET BY M OUTH DAILY nebivolol 5 mg oral tablet (20 sources) Start: End: take 1 tablet by mouth once daily Comment on above: Take 1 tablet by marco th once daily. 24 hr NIFEdipine 30 mg extended release oral tablet (20 sources) Dihydropyridine Calcium Channel Frances Start: 5 take 1 tablet by mouth once daily [...] Discontinued Start: 10-02-2018 take 1 tablet by marco th once daily Start: 10-02-2018 take 1 tablet by marco th twice daily Nifedipine 30 mg Tablet Extended Release 24hr Active 30 MG PO Twice daily October 02, 2018 1:00am take 30 mg by mouth twice daily NIFEDIPINE ER ORAL Take 30 mg by mouth twice daily. 0 Active take 1 tablet by marco twice daily NIFEdipine ER 30 MG Oral Tablet Extended Release 24 Hour Take 1 tablet twice daily Quantity: 0 Refills: 0 Ordered: 26-Jun-2021 DO Active Comment on above: Take 30 mg by mouth twice daily. Take 1 tablet by [facility] once daily. perflutren lipid microspheres 1.3 mL in NaCl (PF) 0.9% 10 mL injection (DEFINITY) (20 sources) Start: 01-17-2023 End: 04-17-2024 perflutren lipid microspheres 1.3 mL in NaCl (PF) 0.9% 10 mL injection (DEFINITY) Start: 12-12-2021 End: 03-13-2023 perflutren lipid microsphere s 1.3 mL in NaCl (PF) 0.9% 10 mL injection (DEFINITY) predniSONE 20 mg oral tablet (15 sources) Start: 05-06-2025 take 4 tablets by mouth once d aily Start: 09-30-2024 predniSONE (De ltasone) 10 MG [...] (BD POSIFLUSH) valsartan 320 mg oral tablet (9 sources) Angiotensin 2 Receptor Frances Start: 03-01-2025 End: 05-13-2025 take 1 tablet by mouth once daily valsartan (Diovan) 320 MG tablet Indications: Primary hypertension TAKE 1 TABLET BY MOUTH EVERY DAY 90 tablet 1 03/23/2025 Active Completed/Discontinued Medications Medication Drug Class(es) Dates Sig (Normalized) Sig (Original) acetaminophen 325 mg / HYDROcodone bitartrate 5 mg oral tablet (7 sources) Opioid Agonist Start: 07-14-2020 End: 08-28-2021 take 1 tablet by mouth every four to six hours as needed for pain Hydrocodone-Acetam inophen ([place]) 5-325 mg tablet Discontinued 1 - 2 [...] mouth twice daily. Take 1 tablet by [facility] twice daily. aspirin 81 mg delayed release oral tablet (20 sources) Platelet Aggregation Inhibitor, Nonsteroidal Anti-inflammatory Drug Start: 07-30-2013 End: 09-15-2024 take 1 tablet by mouth once daily Aspirin 81 mg Tablet,Delayed Release (Dr/Ec) Discontinued 81 MG PO Daily October 02, 2018 1:00am May 04, 2020 8:52am Comment on above: Take 81 mg by mouth. betamethasone 3 mg/ml / betamethasone acetate 3 mg/ml injectable suspension (4 sources) Corticosteroid Start: 09-30-2024 End: 09-30-2024 betamethasone acetate-betamethas one sodium phosphate ([place]) injection 1.5 mg Start: 09-30-2024 End: 09-30-2024 1.5 mg, Intra-articular, Onc e PRN Procedure, Starting on Pascale 09/30/24 at 1629, For 1 dose doxycycline hyclate 100 mg oral tablet (7 sources) Tetracycline-class Drug Start: 07-14-2020 End: 08-28-2021 [...] / losartan potassium 100 mg oral tablet (7 sources) Thiazide Diuretic, Angiotensin 2 Receptor Frances [...] in the CT contrast administration guidelines link. meloxicam 15 mg oral tablet (15 sources) Nonsteroidal Anti-inflammatory Drug Start: End: take 1 tablet by mouth once daily Meloxicam 15 mg tablet Discontinued 15 MG PO Daily January 23, 2024 12:00am April 23, 2024 2:59pm metoprolol tartrate 50 mg oral tablet (7 sources) beta-Adrenergic Frances Start: End: take 1 [...] Tablet Discontinued 80 MG PO Q12H 60 May 05, 2020 12:00am January 23, 2024 2:06pm Comment on above: Take 80 mg by mouth twice daily. Take 1 tablet by marco th twice daily. spironolactone 25 mg oral tablet [...] issue of repeat prescription] Episodic Allergic reactions (5 sources) Contact dermatitis; Translations: [Unspecified contact dermatitis, [...] Translations: [Other thrombophilia] Onset: 02-09-2024 02-09-2024 Chronic Complications of surgical procedures or medical care (20 sources) Drug therapy finding; Translations: [Unspecified adverse effect of drug or medicament, initial encounter] Onset: 02-09-2024 Resolved: 03-01-2025 08-06-2023 Episodic Comment on above: Problem List clean-u p per request of Phys. EHR Cmte Coronary atherosclerosis and other heart disease (1 source) Calcification of coronary artery; Translations: [Atherosclerotic heart disease of [place] coronary artery without angina pectoris] 09-21-2024 Chronic [...] Phys. EHR Cmte Fracture of upper limb (5 sources) Closed fracture of phalanx of finger; Translations: [Fracture of unspecified phalanx of unspecified finger, initial encounter for closed fracture] 07-24-2024 Episodic Joint disorders and dislocations; trauma-related (2 sources) Tear of medial meniscus of knee; Translations: [Other tear of medial meniscus, current injury, right knee, subsequent encounter] 06-18-2024 Episodic Nonspecific chest pain (8 sources) Chest pain; Translations: [Chest pain, unspecified] Episodic Osteoarthritis (7 sources) Degenerative joint disease of ankle AND/OR foot; Translations: [Primary osteoarthritis, unspecified ankle and foot] Onset: 03-01-2025 03-01-2025 Chronic Other aftercare (20 sources) 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 EHR Cmte Other connective tissue disease (1 source) Synovitis and tenosynovitis, unspecified; Translations: [SYNOVITIS AND TENOSYNOVITIS UNS] Onset: 01-22-2023 Episodic Other connective tissue disease (4 sources) Spasm; Translations: [Other muscle spasm] 06-18-2024 Episodic Other connective tissue disease (2 sources) Pain of left hand; Translations: [Pain in left hand] 09-30-2024 Episodic Other connective tissue disease (5 sources) Pain in finger; Translations: [Pain in [...] sources) Right knee pain, unspecified chronicity 10-02-2024 Viral infection (20 sources) Disease caused by 2019-nCoV; Translations: [COVID-19] Onset: 08-05-2023 Resolved: 02-09-2024 08-06-2023 Episodic Comment on above: Problem List clean-u p per request of Phys. EHR Cmte Past or Other Problems Problem Classification Problem Date Documented Date Episodic/Chronic Calculus of urinary tract (20 sources) History of calculus of kidney; Translations: [Personal history of urinary calculi] Onset: 04-14-2023 Resolved: 02-09-2024 02-09-2024 Episodic Disorders of lipid metabolism (20 sources) Hyperlipidemia; Translations: [Other and unspecified hyperlipidemia] Onset: 08-05-2023 Resolved: 06-09-2024 06-09-2024 Chronic Nausea and vomiting (20 sources) Postoperative nausea and vomiting; Translations: [Nausea with vomiting, unspecified] Onset: 12-03-2021 12-03-2021 Episodic Other and unspecified benign neoplasm (20 sources) [...] Never smoked tobacco; Translations: [Never a smoker] Results Test Name Value Interpretation Reference Range Facility [facility] Sendou ton 05-13-2025 [facility] [place] [facility] Sendout Sent to [facility] Normal The Count Includes [facility] Comment on above: Result Comment: Sent to [facility] for further testing. Final report to follow. PERFORMED BY: [place] [id number] PATHOLOGIST NUCLEAR MEDICINE MEDICAL DIRECTOR DANIELLE QUINONES M.D. Complement DATon 05-13-2025 Complement C3B,-C3D AHG Positive Critically abnormal Negative The Count Includes [facility] Comment on above: Result Comment: PERF ORMED BY: [address] [id number] PATHOLOGIST NUCLEAR MEDICINE MEDICAL DIRECTOR DANIELLE QUINONES M.D. Direct Antiglobulin Teston 0 05-13-2025 IgG AHG Positive Critically abnormal Negative The Count Includes [facility] Direct [place] 05-13-2025 Polyspecific AHG Positive Critically abnormal Negative The Count Includes [facility] Comment on above: Result Comment: PERF ORMED BY: [place] [address] PATHOLOGIST NUCLEAR MEDICINE MEDICAL DIRECTOR DANIELLE QUINONES M.D. Alanine aminotransferase [En zymatic activity/volume] in Serum or PlasmaOrdered By: Christian Carlos on 05-12-2025 ALT [Catalytic activity/Vol] 23 U/L Normal 7-52 [facility] Comment on above: Performed By: #### S CAN CBC, LDH, CMP #### [address] [address] [facility] Albumin [Mass/volume] in Ser um or Plasma by Bromocresol green (BCG) dye binding methoOrdered By: Christian Carlos on 05-12-2025 Albumin BCG dye [Mass/Vol] 4.2 g/dL 3.5-5.7 [facility] Alkaline phosphatase [Enzyma tic activity/volume] in Serum or PlasmaOrdered By: Christian Carlos on 05-12-2025 ALP [Catalytic activity/Vol] 69 U/L Normal 34-104 [facility] Comment on above: Performed By: #### S CAN CBC, LDH, CMP #### [facility] [address] Anisocytosis [Presence] in B lood by Light microscopyOrdered By: Christian Carlos on 05-12-2025 Anisocytosis Ql (Bld) Slight Normal [facility] Comment on above: Performed By: #### S CAN CBC, LDH, CMP #### [facility] [address] Aspartate aminotransferase [ Enzymatic activity/volume] in Serum or PlasmaOrdered By: Christian Carlos on 05-12-2025 AST [Catalytic activity/Vol] 28 U/L Normal 13-39 [facility] Comment on above: Performed By: #### S CAN CBC, LDH, CMP #### [facility] [address] [place] [address] [place] Basophils [#/volume] in Bloo d by Automated countOrdered By: Christian Carlos on 05-12-2025 Basophils (Bld) [#/Vol] 0.1 10*3/uL Normal 0.0-0.2 [facility] Comment on above: Performed By: #### S CAN CBC, LDH, CMP #### [facility] [address] Basophils/100 leukocytes in Blood by Automated countOrdered By: Christian Carlos on 05-12-2025 Basophils/100 WBC (Bld) 0.3 % Normal . [facility] Comment on above: Performed By: #### S CAN CBC, LDH, CMP #### [facility] [address] Bilirubin.total [Mass/volume ] in Serum or PlasmaOrdered By: Christian Carlos on 05-12-2025 Bilirubin [Mass/Vol] 3.4 mg/dL High 0.3-1.0 [facility] Comment on above: Samples from patient s [...] for measuring Total Bilirubin. Performed By: #### S CAN CBC, LDH, CMP #### [facility] [address] [place] [address] Calcium [Mass/volume] in Ser um or PlasmaOrdered By: Christian Carlos on 05-12-2025 Calcium [Mass/Vol] 8.7 mg/dL Normal 8.6-10.3 [facility] Comment on above: Performed By: #### S CAN CBC, LDH, CMP #### [address] Carbon dioxide, total [Moles /volume] in Serum or PlasmaOrdered By: Christian Carlos on 05-12-2025 CO2 [Moles/Vol] 34.3 mmol/L High 21.0-31.0 [facility] Comment on above: Performed By: #### S CAN CBC, LDH, CMP #### [address] Chloride [Moles/volume] in S hesham or PlasmaOrdered By: Christian Carlos on 05-12-2025 Chloride [Moles/Vol] 104 mmol/L Normal 98-107 [facility] Comment on above: Performed By: #### S CAN CBC, LDH, CMP #### [address] Comprehensive Metabolic Pane aline 05-12-2025 Albumin [Mass/Vol] 4.2 g/dL Normal 3.5-5.7 The Count Includes [facility] Comment on above: Performed By: #### S CAN CBC, LDH, CMP #### [address] Creatinine Clr Calc Pharmacy 87.86 Normal The Count Includes [facility] Comment on above: Performed By: #### S CAN CBC, LDH, CMP #### [facility] [address] [place] [address] [place] GFR/1.73 sq M.predicted MDRD (S/P/Bld) [Vol rate/Area] mL/min/{1.73_m2} Normal The Count Includes [facility] Comment on above: Performed By: #### S CAN CBC, LDH, CMP #### [facility] [address] Creatinine [Mass/volume] in Serum or PlasmaOrdered By: Christian Carlos on 05-12-2025 Creatinine [Mass/Vol] 0.92 mg/dL Normal 0.70-1.30 [facility] Comment on above: Performed By: #### S CAN CBC, LDH, CMP #### [address] Dacrocytes [Presence] in Blo od by Light microscopyOrdered By: Christian Carlos on 05-12-2025 Dacrocytes LM Ql (Bld) Slight [facility] Eosinophils [#/volume] in Bl ood by Automated countOrdered By: Christian Carlos on 05-12-2025 Eosinophils (Bld) [#/Vol] 0.0 10*3/uL Normal 0.0-0.45 [facility] Comment on above: Performed By: #### S CAN CBC, LDH, CMP #### [place] [address] [place] Eosinophils/100 leukocytes i n Blood by Automated countOrdered By: Christian Carlos on 05-12-2025 Eosinophils/100 WBC (Bld) 0.1 % Normal . [facility] Comment on above: Performed By: #### S CAN CBC, LDH, CMP #### [place] [address] [place] Erythrocyte Sedimentation Ra jennifer 05-12-2025 ESR (Bld) [Velocity] mm/h Normal 0-19 The Count Includes [facility] Comment on above: Result Comment: PERF ORMED BY: [place] [address] PATHOLOGIST NUCLEAR MEDICINE MEDICAL DIRECTOR DANIELLE QUINONES M.D. Performed By: #### S CAN CBC, LDH, CMP #### [facility] [address] Erythrocyte distribution wid th [Ratio] by Automated countOrdered By: Christian Carlos on 05-12-2025 Erythrocyte distribution width (RBC) [Ratio] 16.6 % High 12.0-14.8 [facility] Comment on above: Performed By: #### S CAN CBC, LDH, CMP #### [facility] [address] Erythrocyte morphology findi ng [Identifier] in BloodOrdered By: Christian Carlos on 05-12-2025 RBC morphology finding Nom (Bld) N/A [facility] Erythrocyte sedimentation ra te by Photometric methodOrdered By: Christian Carlos on 05-12-2025 ESR Photometric method (Bld) [Velocity] < 1 mm/hr 0-19 [facility] Erythrocytes [#/volume] in B lood by Automated countOrdered By: Christian Carlos on 05-12-2025 RBC (Bld) [#/Vol] 2.39 10*6/uL Low 3.90-5.60 [facility] Comment on above: Performed By: #### S CAN CBC, LDH, CMP #### [facility] [address] Ferritin [Mass/volume] in Se rum or PlasmaOrdered By: Christian Carlos on 05-12-2025 Ferritin [Mass/Vol] 179.1 ng/mL Normal 23.9-336.2 [facility] Comment on above: Performed By: #### S CAN CBC, LDH, CMP #### [facility] [address] Folate [Mass/volume] in Seru m or PlasmaOrdered By: Christian Carlos on 05-12-2025 Folate [Mass/Vol] 19.3 ng/mL >5.9 [facility] Comment on above: Folate reference ran ge: >5.9 ng/mlThe WHO technical consultation on folate and vitamin [id number] has determined that folate concentrations lessthan 4 ng/ml are considered deficient. Glomerular filtration rate [ Volume Rate/Area] in Serum, Plasma or Blood by CreatinineOrdered By: Christian Carlos on 05-12-2025 Glomerular filtration rate [Volume Rate/Area] in Serum, Plasma or Blood by Creatinine > 60.0 mL/Min [facility] Glucose [Mass/volume] in Ser um or PlasmaOrdered By: Christian Carlos on 05-12-2025 Glucose [Mass/Vol] 88 mg/dL Normal 70-100 [facility] Comment on above: ADA recommended refe rence rangeRandom Glucose Reference Range is dependent on time and content of last meal. Glucose of more than 200 mg/dL in a nonstressed, ambulatory subject supports the diagnosis of Diabetes Mellitus. Result Comment: [place] om Glucose Reference Range is dependent on time and content of last meal. Glucose of more than 200 mg/dL in a nonstressed, ambulatory subject supports the diagnosis of Diabetes Mellitus. ADA recommended reference range Performed By: #### S CAN CBC, LDH, CMP #### [facility] [address] Haptoglobinon 05-12-2025 HAPTOGLOBIN mg/dL Low 44 - 215 mg/dL [facility] Interpretation and review of laboratory results Abnormal [facility] Haptoglobin <30 Low 44-215 The Count Includes [facility] Comment on above: Result Comment: PERF ORMED BY: [place] [address] PATHOLOGIST NUCLEAR MEDICINE MEDICAL DIRECTOR DANIELLE QUINONES M.D. Performed By: #### S CAN CBC, LDH, CMP #### [facility] [address] Haptoglobin [Mass/volume] in Serum or PlasmaOrdered By: Christian Carlos on 05-12-2025 Haptoglobin [Mass/Vol] mg/dL Low 44-215 [facility] Hematocrit [Volume Fraction] of Blood by Automated countOrdered By: Christian Carlos on 05-12-2025 Hematocrit (Bld) [Volume fraction] 26.6 % Low 38.8-50.0 [facility] Comment on above: Performed By: #### S CAN CBC, LDH, CMP #### [facility] [address] Hemoglobin [Mass/volume] in BloodOrdered By: Christian Carlos on 05-12-2025 Hemoglobin (Bld) [Mass/Vol] 8.9 g/dL Low 13.0-17.0 [facility] Comment on above: Performed By: #### S CAN CBC, LDH, CMP #### [facility] [address] [place] [address] Hypochromia LM Ql (Bld)Order ed By: Christian Carlos on 05-12-2025 Hypochromia Ql (Bld) Slight [facility] Iron [Mass/volume] in Serum or PlasmaOrdered By: Christian Carlos on 05-12-2025 Iron [Mass/Vol] 139 ug/dL Normal 50-212 [facility] Comment on above: Performed By: #### S CAN CBC, LDH, CMP #### [facility] [address] [place] [address] Iron and TIBC Profileon 04-25 % Iron Saturation 46.2 % Normal 20-50 The Count Includes [facility] Comment on above: Performed By: #### S CAN CBC, LDH, CMP #### [facility] [address] [place] [address] Total Iron Binding Capacity 301 ug/dL Normal 255-450 The Count Includes [facility] Comment on above: Performed By: #### S CAN CBC, LDH, CMP #### [facility] [address] [place] [address] Leukocytes [#/volume] correc christophe for nucleated erythrocytes in Blood by Automated counOrdered By: Christian Carlos on 05-12-2025 WBC corrected for nucl RBC Auto (Bld) [#/Vol] 24.7 10*3/uL High 4.1-10.5 [facility] Leukocytes [#/volume] in Blo od by Automated countOrdered By: Christian Carlos on 05-12-2025 WBC (Bld) [#/Vol] 24.7 10*3/uL High 4.1-10.5 [facility] Comment on above: Performed By: #### S CAN CBC, LDH, CMP #### [address] Lymphocytes [#/volume] in Bl ood by Automated countOrdered By: Christian Carlos on 05-12-2025 Lymphocytes (Bld) [#/Vol] 18.5 10*3/uL High 1.00-4.8 [facility] Comment on above: Performed By: #### S CAN CBC, LDH, CMP #### [address] Lymphocytes/100 leukocytes i n Blood by Automated countOrdered By: Christian Carlos on 05-12-2025 Lymphocytes/100 WBC (Bld) 74.6 % Normal . [facility] Comment on above: Performed By: #### S CAN CBC, LDH, CMP #### [address] MCH [Entitic mass] by Automa christophe countOrdered By: Christian Carlos on 05-12-2025 MCH (RBC) [Entitic mass] 37.3 pg High 27.5-35.2 [facility] Comment on above: Performed By: #### S CAN CBC, LDH, CMP #### [address] MCHC Auto (RBC) [Mass/Vol]Or dered By: Christian Carlos on 05-12-2025 MCHC (RBC) [Mass/Vol] 33.5 g/dL 32.5-35.6 [facility] MCV [Entitic volume] by Auto mated countOrdered By: Christian Carlos on 05-12-2025 MCV (RBC) [Entitic vol] 111.3 fL High 83.5-101 [facility] Comment on above: Performed By: #### S CAN CBC, LDH, CMP #### [address] Microcytes LM Ql (Bld)Ordere d By: Christian Carlos on 05-12-2025 Microcytes Ql (Bld) [facility] Monocytes [#/volume] in Bloo d by Automated countOrdered By: Christian Carlos on 05-12-2025 Monocytes (Bld) [#/Vol] 0.6 10*3/uL Normal 0.0-0.8 [facility] Comment on above: Performed By: #### S CAN CBC, LDH, CMP #### [facility] [address] Monocytes/100 leukocytes in Blood by Automated countOrdered By: Christian Carlos on 05-12-2025 Monocytes/100 WBC (Bld) 2.6 % Normal . [facility] Comment on above: Performed By: #### S CAN CBC, LDH, CMP #### [facility] [address] [place] [address] [place] Neutrophils [#/volume] in Bl ood by Automated countOrdered By: Christian Carlos on 05-12-2025 Neutrophils (Bld) [#/Vol] 5.5 10*3/uL Normal 1.8-7.7 [facility] Comment on above: Performed By: #### S CAN CBC, LDH, CMP #### [facility] [address] Neutrophils/100 leukocytes i n Blood by Automated countOrdered By: Christian Carlos on 05-12-2025 Neutrophils/100 WBC (Bld) 22.4 % Normal . [facility] Comment on above: Performed By: #### S CAN CBC, LDH, CMP #### [facility] [address] [place] [address] No Panel InformationOrdered By: Christian Carlso on 05-12-2025 Pharmacy Creatinine Clearance (Chem 87.86 [facility] Nucleated erythrocytes [Pres ence] in Blood by Automated countOrdered By: Christian Carlos on 05-12-2025 Nucleated RBC Auto Ql (Bld) 0.1 /100{WBC} 0-0.5 [facility] Platelet adequacy [Presence] in Blood by Light microscopyOrdered By: Christian Carlos on 05-12-2025 Platelets LM Ql (Bld) Normal Normal [facility] Platelet mean volume [Entiti c volume] in Blood by Automated countOrdered By: Christian Carlos on 05-12-2025 Platelet mean volume (Bld) [Entitic vol] 7.0 fL Normal 6.6-10.1 [facility] Comment on above: Performed By: #### S CAN CBC, LDH, CMP #### [facility] [address] Platelet morphology finding [Identifier] in BloodOrdered By: Christian Carlos on 05-12-2025 Platelet morphology finding Nom (Bld) Normal Normal [facility] Platelets [#/volume] in Bloo d by Automated countOrdered By: Christian Carlos on 05-12-2025 Platelets (Bld) [#/Vol] 178 10*3/uL Normal 150-450 [facility] Comment on above: Performed By: #### S CAN CBC, LDH, CMP #### [address] Polychromasia [Presence] in Blood by Light microscopyOrdered By: Chrsitian Carlos on 05-12-2025 Polychromasia LM Ql (Bld) Moderate [facility] Potassium [Moles/volume] in Serum or PlasmaOrdered By: Christian aCrlos on 05-12-2025 Potassium [Moles/Vol] 3.6 mmol/L Normal 3.5-5.1 [facility] Comment on above: Performed By: #### S CAN CBC, LDH, CMP #### [address] Protein [Mass/volume] in Ser um or PlasmaOrdered By: Christian Carlos on 05-12-2025 Protein [Mass/Vol] 5.8 g/dL Low 6.4-8.9 [facility] Comment on above: Performed By: #### S CAN CBC, LDH, CMP #### [facility] [address] [place] [address] Scan and CBCon 05-12-2025 Hypochromasia Slight Normal The Count Includes [facility] Comment on above: Performed By: #### S CAN CBC, LDH, CMP #### [facility] [address] [place] [address] Mean Corpuscular HGB Conc 33.5 g/dL Normal 32.5-35.6 The Count Includes [facility] Comment on above: Performed By: #### S CAN CBC, LDH, CMP #### [address] Microcytosis Marked Normal The Count Includes [facility] Comment on above: Performed By: #### S CAN CBC, LDH, CMP #### [address] NRBC% 0.1 /100{WBC} Normal 0-0.5 The Count Includes [facility] Comment on above: Performed By: #### S CAN CBC, LDH, CMP #### [address] Platelet Estimate Normal Normal Normal The Count Includes [facility] Comment on above: Performed By: #### S CAN CBC, LDH, CMP #### [address] Platelet Morphology Normal Normal Normal The Count Includes [facility] Comment on above: Performed By: #### S CAN CBC, LDH, CMP #### [address] Polychromasia Moderate Normal The Count Includes [facility] Comment on above: Performed By: #### S CAN CBC, LDH, CMP #### [address] Tear Drop Cells Slight Normal The Count Includes [facility] Comment on above: Performed By: #### S CAN CBC, LDH, CMP #### [address] White Blood Count 24.7 [CFU]/mL High 4.1-10.5 The Count Includes [facility] Comment on above: Performed By: #### S CAN CBC, LDH, CMP #### [address] Serum globulin measurement b y calculation (mass/volume)Ordered By: Christian Carlos on 05-12-2025 Globulin (S) [Mass/Vol] 1.6 g/dL Normal [facility] Comment on above: Performed By: #### S CAN CBC, LDH, CMP #### [facility] [address] Serum or plasma albumin/glob ulin mass ratioOrdered By: Christian Carlos on 05-12-2025 Albumin/Globulin [Mass ratio] 2.6 {ratio} Normal [facility] Comment on above: Performed By: #### S CAN CBC, LDH, CMP #### [facility] [address] [place] [address] Serum or plasma anion gap de terminationOrdered By: Christian Carlos on 05-12-2025 Anion gap [Moles/Vol] 7.3 mmol/L Normal 6.0-15.0 [facility] Comment on above: Performed By: #### S CAN CBC, LDH, CMP #### [address] Serum or plasma iron binding capacity measurement (mass/volume)Ordered By: Christian Carlos on 05-12-2025 Iron binding capacity [Mass/Vol] 301 ug/dL 255-450 [facility] Serum or plasma iron saturat ion measurement (mass fraction)Ordered By: Christian Carlos on 05-12-2025 Iron saturation [Mass fraction] 46.2 % 20-50 [facility] Sodium [Moles/volume] in Ser um or PlasmaOrdered By: Christian Carlos on 05-12-2025 Sodium [Moles/Vol] 142 mmol/L Normal 136-145 [facility] Comment on above: Performed By: #### S CAN CBC, LDH, CMP #### [facility] [address] [place] [address] Transferrin [Mass/volume] in Serum or PlasmaOrdered By: Christian Carlos on 05-12-2025 Transferrin [Mass/Vol] 215 mg/dL Normal 203-362 [facility] Comment on above: Performed By: #### S CAN CBC, LDH, CMP #### [facility] [address] [place] [address] Type and Screenon 05-12-2025 ABO and Rh group Nom (Bld) Blood group O Rh(D) positive Normal The Count Includes [facility] Comment on above: Result Comment: PERF ORMED BY: [place] [address] PATHOLOGIST NUCLEAR MEDICINE MEDICAL DIRECTOR DANIELLE QUINONES M.D. US spleenon 05-12-2025 US spleen [facility] [place] [address] [place], [place] [id number] Ultrasound Report Signed Patient: Darius Valera MR#: [id number] 10 : 1960 Acct:[id number] Age/Sex: 64 / M ADM Date: 05/12/25 Loc: Room: Type: [facility] RCR Attending Dr: Christian Carlos II, DO Ordering [...] Curry M.D. 05/12/2025 1:08 PM Dictation Location: [place] [address] Tech: Caterinamarietta Sandovaler Transcribed By: [facility] 05/12/25 1308 Dictated By: Joey Curry DO 05/12/25 1303 Signed By: 05/12/25 1308 Normal The Count Includes [facility] Urea nitrogen [Mass/volume] in Serum or PlasmaOrdered By: Christian Carlos on 05-12-2025 Urea nitrogen [Mass/Vol] 20 mg/dL Normal 03-18 [facility] Comment on above: Performed By: #### S CAN CBC, LDH, CMP #### [address] Vit. B12/Folate Profileon Folate 19.3 ng/mL Normal >5.9 The Count Includes [facility] Comment on above: Result Comment: Catarina te reference range: >5.9 ng/ml The WHO technical consultation on folate and vitamin b12 deficiencies has determined that folate concentrations less than 4 ng/ml are considered deficient. PERFORMED BY: [place] [address] PATHOLOGIST NUCLEAR MEDICINE MEDICAL DIRECTOR DANIELLE QUINONES M.D. Performed By: #### S CAN CBC, LDH, CMP #### [facility] [address] Vitamin B12 ser/plasOrdered By: Christian Carlos on 05-12-2025 Cobalamin (Vitamin B12) [Mass/Vol] 492 pg/mL Normal 180-914 [facility] Comment on above: Performed By: #### S CAN CBC, LDH, CMP #### [facility] [address] ALL SED RATEon 05-09-2025 TBH SED RATE <1 [facility] ECG COMPLETEon 04-04-2025 Atrial Rate 76 BPM [facility] Calculated P [place] 13 degrees [facility] Calculated R [place] 0 degrees [facility] Calculated T [place] 18 degrees [facility] P-R Interval 178 ms [facility] QRS Duration 86 ms [facility] QT Interval 378 ms [facility] QTC Calculation (Bazett) 425 ms [facility] Ventricular Rate 76 BPM [facility] NORMAL SINUS RHYTHM NORMAL ECG Confirmed by JADE DAS MD ([id number]) on 04/04/2025 5:11:38 PM [facility] NAME : DARIUS VALERA PID : [id number] : 1960 Gender : Male Race : ORD : Procedure Date : Apr 04 2025 14:34:56 Edit Date : Apr 04 2025 17:11:41 Diagnosis: NORMAL SINUS RHYTHM NORMAL ECG Confirmed by JADE DAS MD ([id number]) on 04/04/2025 5:11:38 PM Test Reason : Location : 192 : AVCRD Overread By : JADE DAS MD Edited By : JADE DAS MD Referred By : , Acquired by : , [facility] HEMOGLOBIN A1con 03-19-2025 HbA1c (Bld) [Mass [...] diagnosis of diabetes in children. According to [place] Diabetes Association (ADA) guidelines, hemoglobin A1c <7.0% represents optimal control in non- diabetic patients. Different metrics may apply to specific patient populations. Standards of Medical Care in Diabetes(ADA). Performed By: #### 5 363, 14044, 04140, 496, 7600 #### [facility] [address], [address] [place] [address] Deep [employer]mer[employer] Vehicle Operator: Memo Marquis MD LIPID PANEL, [facility] 07- Cholesterol [Mass/Vol] 140 mg/dL Normal <200 [facility] Comment on above: Order Comment: FASTI NG:YES FASTING: YES Performed By: #### 5 363, 26165, 88199, 496, 7600 #### [facility] [address], [address] [place], [place] [address] Deep Submergence Vehicle Operator: Memo Marquis MD Cholesterol in HDL [Mass/Vol] 67 mg/dL Normal > OR = 40 [facility] Comment on above: Order Comment: FASTI NG:YES FASTING: YES Performed By: #### 5 363, 76157, 69472, 496, 7600 #### [facility] [address], [address] [place], [place] [id number] [employer]mer[employer] Vehicle Operator: Memo Marquis MD Cholesterol in LDL [Mass/Vol] [...] LDL-C. Hilario VALDIVIA et al. ARNULFO. 2013;310(19): 1934-3559 (http://education.StudyBlue.OYCO Systems/faq/UTX503) Performed By: #### 5 363, 12667, 53278, 496, 7600 #### [facility] [address], [address] [place] [address] Deep Submergence Vehicle Operator: eMmo Marquis MD Cholesterol.total/Chol esterol in HDL [Mass ratio] 2.1 {ratio} Normal <5.0 [facility] Comment on above: Order Comment: FASTI NG:YES FASTING: YES Performed By: #### 5 363, 35499, 05898, 496, 7600 #### [facility] [address], [address] [place] [address] Deep Submergence Vehicle Operator: Memo Marquis MD NON HDL CHOLESTEROL 73 mg/dL (calc) Normal <130 [facility] Comment on above: Order Comment: FASTI NG:YES FASTING: YES Result Comment: For patients with diabetes plus 1 major ASCVD risk factor, treating to a non-HDL-C goal of <100 mg/dL (LDL-C of <70 mg/dL) is considered a therapeutic option. Performed By: #### 5 363, 06560, 43112, 496, 7600 #### [facility] [place] [address] Deep Submergence Vehicle Operator: Memo Marquis MD Triglyceride [Mass/Vol] 53 mg/dL Normal <150 [facility] Comment on above: Order Comment: FASTI NG:YES FASTING: YES Performed By: #### 5 363, 29749, 36531, 496, 7600 #### [facility] [address], [address] [place] [address] Deep Submergence Vehicle Operator: Memo Marquis MD PSA, TOTALon 03-19-2025 PSA, TOTAL 0.62 ng/mL Normal < OR = 4.00 [facility] Comment on above: Result Comment: The total PSA value from this assay system is standardized against the WHO standard. The test result will be approximately 20% lower when compared to the equimolar-standardized total PSA (Harjit [place]). Comparison of serial PSA results should be interpreted with this fact in mind. This test was performed using the Siemens chemiluminescent method. Values obtained from different assay methods cannot be used interchangeably. PSA levels, regardless of value, should not be interpreted as absolute evidence of the presence or absence of disease. Performed By: #### 5 363, 20365, 89242, 496, 7600 #### [facility] [address], [address] [place] [address] Deep Submergence Vehicle Operator: Memo Marquis MD TSH W/REFLEX TO FT4on 2024 TSH W/REFLEX TO FT4 0.97 mIU/L Normal 0.40-4.50 [facility] Comment on above: Performed By: #### 5 363, 86010, 40635, 496, 7600 #### [facility] [address], [address] [place] [address] Deep Submergence Vehicle Operator: Memo Marquis MD VITAMIN D,25-OH,TOTAL,IAon 0 03-19-2025 [...] D, (D2,D3), LC/MS/MS is recommended: order code 72508 (patients >2yrs). See Note 1 Note 1 For additional information, please refer to http://education.eSoft/faq/ZZT205 (This link is being provided for informational/ educational purposes only.) Performed By: #### 5 363, 69306, 73470, 496, 7600 #### [facility] [address], [address] [place], [place] [address] Deep Submergence Vehicle Operator: Memo Marquis MD PATHOLOGY REQUEST FOR LAB CO RPon 02-15-2025 PATHOLOGY REQUEST FOR LAB REINA [facility] Comment on above: See report. Scanned copy available in EMR. [facility] Alanine aminotransferase [En zymatic activity/volume] in Serum or Plasmaon 02-10-2025 ALT [Catalytic activity/Vol] 31 U/L Normal 7-52 [facility] Comment on above: Performed By: #### S CAN CBC, LDH, CMP #### [address] Albumin [Mass/volume] in Ser um or Plasma by Bromocresol green (BCG) dye binding methoOrdered By: Christian Carlos on 02-10-2025 Albumin BCG dye [Mass/Vol] 4.7 g/dL 3.5-5.7 [facility] Alkaline phosphatase [Enzyma tic activity/volume] in Serum or Plasmaon 02-10-2025 ALP [Catalytic activity/Vol] 88 U/L Normal 34-104 [facility] Comment on above: Performed By: #### S CAN CBC, LDH, CMP #### [address] Anisocytosis [Presence] in B lood by Light microscopyOrdered By: Christian Carlos on 02-10-2025 Anisocytosis Ql (Bld) Slight Normal [facility] Comment on above: Performed By: #### S CAN CBC, LDH, CMP #### [facility] [address] [place] [address] Aspartate aminotransferase [ Enzymatic activity/volume] in Serum or Plasmaon 02-10-2025 AST [Catalytic activity/Vol] 38 U/L Normal 13-39 [facility] Comment on above: Performed By: #### S CAN CBC, LDH, CMP #### [facility] [address] [place] [address] Basophils Auto (Bld) [#/Vol] Ordered By: Christian Carlos on 02-10-2025 Basophils (Bld) [#/Vol] N/A [facility] Basophils/100 WBC Auto (Bld) Ordered By: Christian Carlos on 02-10-2025 Basophils/100 WBC (Bld) N/A [facility] Bilirubin.total [Mass/volume ] in Serum or Plasmaon 02-10-2025 Bilirubin [Mass/Vol] 1.9 mg/dL High 0.3-1.0 [facility] Comment on above: Samples from patient [...] for measuring Total Bilirubin. Performed By: #### S CAN CBC, LDH, CMP #### [facility] [address] COAGULATION PROFILEon 2024 aPTT Coag (Bld) [Time] 30.1 s 25.1 - 36.5 s [facility] Comment on above: A hematocrit value g reater than 55% may lead to inaccurate results in coagulation testing. Patients having hematocrit values >55% require a special collection tube for coagulation studies. Please contact the laboratory at [phone] for redraw instructions. INR Coag (PPP) [Relative time] 1 {INR} [facility] Comment on above: INR Therapeutic Rang e [...] 11.1 s 9.0 - 1 2.9 s [facility] Comment on above: A hematocrit value g reater than 55% may lead to inaccurate results in coagulation testing. Patients having hematocrit values >55% require a special collection tube for coagulation studies. Please contact the laboratory at [phone] for redraw instructions. STAT FOR [facility] CT guided bone marrow bx/asp iron 02-10-2025 CT guided bone marrow bx/aspir [facility] [place] [address] [place] [address] CT Scan Report Signed Patient: Darius Valrea MR#: [id number] 10 : 1960 Acct:[id number] Age/Sex: 64 / M ADM Date: 02/10/25 Loc: CT Room: Type: [facility] Attending Dr: Christian Carlos II DO Copies [...] local anesthesia. Utilizing CT guidance, an 11-gauge [facility] biopsy needle was advanced into the right [...] biopsy. Impression dictated by: Garcia Vanegas Jr., LayoOCarrie 02/10/2025 11:08 AM Dictation Location: [place] [address] Transcribed By: [facility] 02/10/25 1108 Dictated By: Garcia Vanegas Jr, DO 02/10/25 110 Signed By: 02/10/258 Normal The Count Includes [facility] Calcium [Mass/volume] in Ser um or Plasmaon 02-10-2025 Calcium [Mass/Vol] 9.3 mg/dL Normal 8.6-10.3 [facility] Comment on above: Performed By: #### S CAN CBC, LDH, CMP #### [address] Carbon dioxide, total [Moles /volume] in Serum or Plasmaon 02-10-2025 CO2 [Moles/Vol] 28.6 mmol/L Normal 21.0-31.0 [facility] Comment on above: Performed By: #### S CAN CBC, LDH, CMP #### [address] Chloride [Moles/volume] in S hesham or Plasmaon 02-10-2025 Chloride [Moles/Vol] 106 mmol/L Normal 98-107 [facility] Comment on above: Performed By: #### S CAN CBC, LDH, CMP #### [address] Coagulation Profileon 2024 aPTT Coag (Bld) [Time] 30.1 s Normal 25.1-36.5 Th e Count Includes [facility] Comment on above: Order Comment: STAT FOR CT Result Comment: A he matocrit value greater than 55% may lead to inaccurate results in coagulation testing. Patients having hematocrit values >55% require a special collection tube for coagulation studies. Please contact the laboratory at [phone] for redraw instructions. PERFORMED BY: [place] [address] PATHOLOGIST NUCLEAR MEDICINE MEDICAL DIRECTOR DANIELLE QUINONES M.D. Performed By: #### P P ####[facility] [place] [address] Comprehensive Metabolic Pane [facility] 02-10-2025 Albumin [Mass/Vol] 4.7 g/dL Normal 3.5-5.7 [facility] Comment on above: Performed By: #### S CAN CBC, LDH, CMP #### [address] CREATININE CLR CALC PHARMACY 93.99 Normal [facility] Comment on above: Result Comment: PERF ORMED BY: [place] [address] PATHOLOGIST NUCLEAR MEDICINE MEDICAL DIRECTOR DANIELLE QUINONES M.D. Performed By: #### S CAN CBC, LDH, CMP #### [facility] [address] GFR/1.73 sq M.predicted MDRD (S/P/Bld) [Vol rate/Area] mL/min/{1.73_m2} Normal The Count Includes [facility] Comment on above: Performed By: #### S CAN CBC, LDH, CMP #### [facility] [address] Comprehensive metabolic pane aline 02-10-2025 Creatinine (U) [Mass/Vol] 0.86 mg/dL 0.70 - 1.30 mg/dL [facility] ESTIMATED GFR [facility] Globulin (S) [Mass/Vol] 2 g/dL [facility] Interpretation and review of laboratory results Abnormal [facility] Creatinine [Mass/volume] in Serum or PlasmaOrdered By: Christian Carlos on 02-10-2025 Creatinine [Mass/Vol] 0.86 mg/dL Normal 0.70-1.30 [facility] Comment on above: Performed By: #### S CAN CBC, LDH, CMP #### [address] Dacrocytes [Presence] in Blo od by Light microscopyOrdered By: Christian Carlos on 02-10-2025 Dacrocytes LM Ql (Bld) Slight [facility] Diff and CBCon 02-10-2025 Mean Corpuscular HGB Conc 35.2 g/dL Normal 32.5-35.6 The Count Includes [facility] Comment on above: Performed By: #### S CAN CBC, LDH, CMP #### [address] Ovalocytes Slight Normal The Count Includes [facility] Comment on above: Performed By: #### S CAN CBC, LDH, CMP #### [address] Platelet Estimate Normal Normal Normal The Count Includes [facility] Comment on above: Performed By: #### S CAN CBC, LDH, CMP #### [address] Platelet Morphology Normal Normal Normal The Count Includes [facility] Comment on above: Result Comment: PERF ORMED BY: [place] [address] PATHOLOGIST NUCLEAR MEDICINE MEDICAL DIRECTOR DANIELLE QUINONES M.D. Performed By: #### S CAN CBC, LDH, CMP #### [address] Poikilocytosis Slight Normal The Count Includes [facility] Comment on above: Performed By: #### S CAN CBC, LDH, CMP #### [address] Polychromasia Slight Normal The Count Includes [facility] Comment on above: Performed By: #### S CAN CBC, LDH, CMP #### [address] Tear Drop Cells Slight Normal The Count Includes [facility] Comment on above: Performed By: #### S CAN CBC, LDH, CMP #### [address] White Blood Count 20.7 [CFU]/mL High 4.1-10.5 The Count Includes [facility] Comment on above: Performed By: #### S CAN CBC, LDH, CMP #### [address] Eosinophils Auto (Bld) [#/Vo l]Ordered By: Christian Carlos on 02-10-2025 Eosinophils (Bld) [#/Vol] N/A [facility] Eosinophils/100 WBC Auto (Bl d)Ordered By: Christian Carlos on 02-10-2025 Eosinophils/100 WBC (Bld) N/A [facility] Eosinophils/100 leukocytes i n Blood by Manual countOrdered By: Christian Carlos on 02-10-2025 Eosinophils/100 WBC (Bld) 1 % Normal 1-3 [facility] Comment on above: Performed By: #### S CAN CBC, LDH, CMP #### [facility] [address] [place] [address] [place] Erythrocyte distribution wid th [Ratio] by Automated countOrdered By: Christian Carlos on 02-10-2025 Erythrocyte distribution width (RBC) [Ratio] 13.4 % Normal 12.0-14.8 [facility] Comment on above: Performed By: #### S CAN CBC, LDH, CMP #### [facility] [address] [place] [address] Erythrocyte morphology findi ng [Identifier] in BloodOrdered By: Christian Carlos on 02-10-2025 RBC morphology finding Nom (Bld) N/A [facility] Erythrocytes [#/volume] in B lood by Automated countOrdered By: Christian Carlos on 02-10-2025 RBC (Bld) [#/Vol] 3.98 10*6/uL Normal 3.90-5.60 [facility] Comment on above: Performed By: #### S CAN CBC, LDH, CMP #### [facility] [address] [place] [address] Free K+L LT Chains, Qn, Son 02-10-2025 Free [place] Light Chains, S 16.3 mg/L Normal 3.3-19.4 The Count Includes [facility] Comment on above: Performed By: #### S PE, KAPPA, JIGAR SERUM ####[facility] , Free [place] Light Chains, S 10.6 mg/L Normal 5.7-26.3 The Count Includes [facility] Comment on above: Performed By: #### S PE, KAPPA, JIGAR SERUM ####[facility] , [place]/Lambda Ratio, S 1.54 Normal 0.26-1.65 The Count Includes [facility] Comment on above: Result Comment: Perf ormed at: CB - [facility] [address] [id number] Air Export Coordinator: Chad Mccall PhD, Phone: [phone] PERFORMED BY: [place] [address] PATHOLOGIST NUCLEAR MEDICINE MEDICAL DIRECTOR DANIELLE QUINONES M.D. Performed By: #### S PE, KAPPA, JIGAR SERUM ####[facility] , Glucose [Mass/volume] in Ser um or Plasmaon 06-19-2025 Glucose [Mass/Vol] 106 mg/dL High 70-100 [facility] Comment on above: Random Glucose Refer [...] the diagnosis of Diabetes Mellitus. Result Comment: [place] om Glucose Reference Range is dependent on time and content of last meal. Glucose of more than 200 mg/dL in a nonstressed, ambulatory subject supports the diagnosis of Diabetes Mellitus. ADA recommended reference range Performed By: #### S CAN CBC, LDH, CMP #### [address] Hematocrit [Volume Fraction] of Blood by Automated countOrdered By: Christian Carlos on 02-10-2025 Hematocrit (Bld) [Volume fraction] 38.6 % Low 38.8-50.0 [facility] Comment on above: Performed By: #### S CAN CBC, LDH, CMP #### [facility] [address] [place] [address] Hemoglobin [Mass/volume] in BloodOrdered By: Christian Carlos on 02-10-2025 Hemoglobin (Bld) [Mass/Vol] 13.6 g/dL Normal 13.0-17.0 [facility] Comment on above: Performed By: #### S CAN CBC, LDH, CMP #### [address] INR in Platelet poor plasma by Coagulation assayOrdered By: Christian Carlos on 02-10-2025 INR Coag (PPP) [Relative time] 1.0 {INR} Normal [facility] Comment on above: INR Therapeutic Rang e [...] - 4.5 Performed By: #### P P ####[facility] [address] Immunofixation,Serumon 02-10 Immunofixation, Serum Comment Normal . The Count Includes [facility] Comment on above: Result Comment: No m onoclonality detected. Performed By: #### S CAN CBC, LDH, CMP #### [facility] [address] Immunoglobulin A, Serum 146 mg/dL Normal 61-437 The Count Includes [facility] Comment on above: Performed By: #### S CAN CBC, LDH, CMP #### [facility] [address] Immunoglobulin G 714 mg/dL Normal 603-1613 The Count Includes [facility] Comment on above: Performed By: #### S CAN CBC, LDH, CMP #### [facility] [address] [place] [id number] [facility] Immunoglobulin M, Serum 24 mg/dL Normal 20-172 The Count Includes [facility] Comment on above: Result Comment: Resu lt confirmed on concentration. Performed at: [facility] [id number] Air Export Coordinator: Chad Mccall PhD, Phone: [phone] Performed By: #### S CAN CBC, LDH, CMP #### [facility] [address] Leukocytes [#/volume] correc christophe for nucleated erythrocytes in Blood by Automated counOrdered By: Christian Carlos on 02-10-2025 WBC corrected for nucl RBC Auto (Bld) [#/Vol] 20.7 10*3/uL High 4.1-10.5 [facility] Leukocytes [#/volume] in Blo od by Automated countOrdered By: Christian Carlos on 02-10-2025 WBC (Bld) [#/Vol] 20.7 10*3/uL High 4.1-10.5 [facility] Comment on above: Performed By: #### S CAN CBC, LDH, CMP #### [facility] [address] [place] [address] Lymphocytes Auto (Bld) [#/Vo l]Ordered By: Christian Carlos on 02-10-2025 Lymphocytes (Bld) [#/Vol] N/A [facility] Lymphocytes/100 WBC Auto (Bl d)Ordered By: Christian Carlos on 02-10-2025 Lymphocytes/100 WBC (Bld) N/A [facility] Lymphocytes/100 leukocytes i n Blood by Manual countOrdered By: Christian Carlos on 02-10-2025 Lymphocytes/100 WBC (Bld) 69 % High 18-42 [facility] Comment on above: Performed By: #### S CAN CBC, LDH, CMP #### [address] MCH [Entitic mass] by Automa christophe countOrdered By: Christian Carlos on 02-10-2025 MCH (RBC) [Entitic mass] 34.2 pg Normal 27.5-35.2 [facility] Comment on above: Performed By: #### S CAN CBC, LDH, CMP #### [facility] [address] [place] [address] MCHC Auto (RBC) [Mass/Vol]Or dered By: Christian Carlos on 02-10-2025 MCHC (RBC) [Mass/Vol] 35.2 g/dL 32.5-35.6 [facility] MCV [Entitic volume] by Auto mated countOrdered By: Christian Carlos on 02-10-2025 MCV (RBC) [Entitic vol] 97.2 fL Normal 83.5-101 [facility] Comment on above: Performed By: #### S CAN CBC, LDH, CMP #### [address] Monocytes Auto (Bld) [#/Vol] Ordered By: Christian Carlos on 02-10-2025 Monocytes (Bld) [#/Vol] N/A [facility] Monocytes/100 WBC Auto (Bld) Ordered By: Christian Carlos on 02-10-2025 Monocytes/100 WBC (Bld) N/A [facility] Monocytes/100 leukocytes in Blood by Manual countOrdered By: Christian Carlos on 02-10-2025 Monocytes/100 WBC (Bld) 5 % Normal 2-11 [facility] Comment on above: Performed By: #### S CAN CBC, LDH, CMP #### [facility] [address] [place] [address] [facility] Neutrophils Auto (Bld) [#/Vo l]Ordered By: Christian Carlos on 02-10-2025 Neutrophils (Bld) [#/Vol] N/A [facility] Neutrophils/100 WBC Auto (Bl d)Ordered By: Christian Carlos on 02-10-2025 Neutrophils/100 WBC (Bld) N/A [facility] No Panel InformationOrdered By: Christian Carlos on 02-10-2025 Miscellaneous Pathology Test See comment [facility] Comment on above: See report. Scanned copy available in EMR. Estimated GFR (CKD-EPI) > 60.0 mL/Min [facility] Creatinine Clearance (Chem 93.99 [facility] Protein Electrophoresis M-Danny Not observed g/dL Not Observed [facility] Protein Electrophoresis Note Comment . [facility] Comment on above: Protein electrophore sis scan will follow via computer,mail, or production counter delivery. No Panel Informationon 02-10 [facility] Nucleated erythrocytes [Pres ence] in Blood by Automated countOrdered By: Christian Carlos on 02-10-2025 Nucleated RBC Auto Ql (Bld) N/A [facility] Ovalocytes [Presence] in Blo od by Light microscopyOrdered By: Christian Carlos on 02-10-2025 Ovalocytes LM Ql (Bld) [facility] Request for Lab Co rpon 02-10-2025 Pathology Request for Lab Reina Normal The Count Includes [facility] Comment on above: Result Comment: See report. Scanned copy available in EMR. PERFORMED BY: [place] [address] PATHOLOGIST NUCLEAR MEDICINE MEDICAL DIRECTOR DANIELLE QUINONES M.D. Performed By: #### S CAN CBC, LDH, CMP #### [facility] [address] [place] [address] [facility] Platelet adequacy [Presence] in Blood by Light microscopyOrdered By: Christian Carlos on 02-10-2025 Platelets LM Ql (Bld) Normal Normal [facility] Platelet mean volume [Entiti c volume] in Blood by Automated countOrdered By: Christian Carlos on 02-10-2025 Platelet mean volume (Bld) [Entitic vol] 7.4 fL Normal 6.6-10.1 [facility] Comment on above: Result Comment: PERF ORMED BY: [place] [address] PATHOLOGIST NUCLEAR MEDICINE MEDICAL DIRECTOR DANIELLE QUINONES M.D. Performed By: #### S CAN CBC, LDH, CMP #### [facility] [address] [place] [address] [facility] Platelet morphology finding [Identifier] in BloodOrdered By: Christian Carlos on 02-10-2025 Platelet morphology finding Nom (Bld) Normal Normal [facility] Platelets [#/volume] in Bloo d by Automated countOrdered By: Christian Carlos on 02-10-2025 Platelets (Bld) [#/Vol] 158 10*3/uL Normal 150-450 [facility] Comment on above: Performed By: #### S CAN CBC, LDH, CMP #### [facility] [address] [place] [address] [place] Poikilocytosis [Presence] in Blood by Light microscopyOrdered By: Christian Carlos on 02-10-2025 Poikilocytosis LM Ql (Bld) [facility] Polychromasia [Presence] in Blood by Light microscopyOrdered By: Christian Carlos on 02-10-2025 Polychromasia LM Ql (Bld) [facility] Potassium [Moles/volume] in Serum or Plasmaon 02-10-2025 Potassium [Moles/Vol] 3.8 mmol/L Normal 3.5-5.1 [facility] S [facility] Comment on above: Performed By: #### S CAN CBC, LDH, CMP #### [facility] [address] Protein Electrophoresis, Ser umon 02-10-2025 Qyuuy-8-Yusfnqxi 0.3 g/dL Normal 0.0-0.4 The Count Includes [facility] Comment on above: Performed By: #### S PE, KAPPA, JIGAR SERUM ####[facility] , Cbhet-3-Qbuezggb 0.5 g/dL Normal 0.4-1.0 The Count Includes [facility] Comment on above: Performed By: #### S PE, KAPPA, JIGAR SERUM ####[facility] , Beta Globulin 0.9 g/dL Normal 0.7-1.3 The Count Includes [facility] Comment on above: Performed By: #### S PE, KAPPA, JIGAR SERUM ####[facility] , Gamma Globulin 0.7 g/dL Normal 0.4-1.8 The Count Includes [facility] Comment on above: Performed By: #### S PE, KAPPA, JIGAR SERUM ####[facility] , M-Danny Not Observed Normal Not Observed The Count Includes [facility] Comment on above: Performed By: #### S PE, KAPPA, JIGAR SERUM ####[facility] , SPE-Note Comment Normal . The Count Includes [facility] Comment on above: Result Comment: Prot ein electrophoresis scan will follow via computer, mail, or production counter delivery. Performed By: #### S PE, KAPPA, JIGAR SERUM ####[facility] , Protein [Mass/volume] in Ser um or Plasmaon 02-10-2025 Protein [Mass/Vol] 6.7 g/dL Normal 6.4-8.9 [facility] Comment on above: Performed By: #### S CAN CBC, LDH, CMP #### [facility] [address] Prothrombin time (PT)Ordered By: Christian Carlos on 02-10-2025 PT Coag (PPP) [Time] 11.1 s Normal 9.0-12.9 [facility] Comment on above: A hematocrit value g reater than 55% may lead to inaccurate results in coagulation testing. Patients having hematocrit values >55% require a special collection tube for coagulation studies. Please contact the laboratory at [phone] for redraw instructions. Order Comment: STAT FOR CT Result Comment: A he matocrit value greater than 55% may lead to inaccurate results in coagulation testing. Patients having hematocrit values >55% require a special collection tube for coagulation studies. Please contact the laboratory at [phone] for redraw instructions. Performed By: #### P P ####[facility] [address] Segmented neutrophils/100 le ukocytes in Blood by Manual countOrdered By: Christian Carlos on 02-10-2025 Segmented neutrophils/100 WBC (Bld) 25 % Low 50-70 [facility] Comment on above: Performed By: #### S CAN CBC, LDH, CMP #### [facility] [address] Serum free kappa light chain measurementOrdered By: Christian Carlos on 02-10-2025 Immunoglobulin light chains.kappa.free (S) [Mass/Vol] 16.3 mg/L 3.3-19.4 [facility] Serum globulin measurement ( mass/volume)Ordered By: Christian Carlos on 02-10-2025 Globulin (S) [Mass/Vol] 2.3 g/dL Normal 2.2-3.9 [facility] Comment on above: Performed By: #### S PE, KAPPA, JIGAR SERUM ####[facility] , Serum globulin measurement b y calculation (mass/volume)Ordered By: Christian Carlos on 02-10-2025 Globulin (S) [Mass/Vol] 2.0 g/dL Normal [facility] Comment on above: Performed By: #### S CAN CBC, LDH, CMP #### [facility] [address] Serum immunoglobulin free ka ppa light chains/immunoglobulin free lambda light chainsOrdered By: Christian Carlos on 02-10-2025 Immunoglobulin light chains.kappa.free/Immu noglobulin light chains.lambda.free (S) [Mass ratio] 1.54 0.26-1.65 [facility] Comment on above: Performed at: [facility] [address] [id number] Director: Chad Mccall PhD, Phone: [phone] Serum or plasma IgA measurem ent (mass/volume)Ordered By: Christian Carlos on 02-10-2025 IgA [Mass/Vol] 146 mg/dL 61-437 [facility] Serum or plasma IgG measurem ent (mass/volume)Ordered By: Christian Carlos on 02-10-2025 IgG [Mass/Vol] 714 mg/dL 603-1613 [facility] Serum or plasma IgM measurem ent (mass/volume)Ordered By: Christian Carlos on 02-10-2025 IgM [Mass/Vol] 24 mg/dL 20-172 [facility] Comment on above: Result confirmed on concentration.Performed at: [facility] [address] [id number] Director: Chad Mccall PhD, Phone: [phone] Serum or plasma albumin kirk urement (mass/volume)Ordered By: Christian Carlos on 02-10-2025 Albumin [Mass/Vol] 4.0 g/dL Normal 2.9-4.4 [facility] Comment on above: Performed By: #### S PE, KAPPA, JIGAR SERUM ####[facility] , Serum or plasma albumin/glob ulin mass ratioon 02-10-2025 Albumin/Globulin [Mass ratio] 2.4 {ratio} Normal [facility] Comment on above: Performed By: #### S CAN CBC, LDH, CMP #### [facility] [address] Serum or plasma albumin/glob ulin mass ratioOrdered By: Christian Carlos on 02-10-2025 Albumin/Globulin [Mass ratio] 1.7 {ratio} Normal 0.7-1.7 [facility] Comment on above: Performed By: #### S PE, KAPPA, JIGAR SERUM ####[facility] , Serum or plasma alpha 1 glob ulin measurement by electrophoresis (mass/volume)Ordered By: Christian Carlos on 02-10-2025 Alpha 1 globulin Elph [Mass/Vol] 0.3 g/dL 0.0-0.4 [facility] Serum or plasma alpha 2 glob ulin measurement by electrophoresis (mass/volume)Ordered By: Christian Carlos on 02-10-2025 Alpha 2 globulin Elph [Mass/Vol] 0.5 g/dL 0.4-1.0 [facility] Serum or plasma anion gap de terminationon 02-10-2025 Anion gap [Moles/Vol] 9.2 mmol/L Normal 6.0-15.[address] [facility] Comment on above: Performed By: #### S CAN CBC, LDH, CMP #### [facility] [address] Serum or plasma beta globuli n measurement by electrophoresis (mass/volume)Ordered By: Christian Carlos on 02-10-2025 Beta globulin Elph [Mass/Vol] 0.9 g/dL 0.7-1.3 [facility] Serum or plasma gamma globul in measurement by electrophoresis (mass/volume)Ordered By: Christian Carlos on 02-10-2025 Gamma globulin Elph [Mass/Vol] 0.7 g/dL 0.4-1.8 [facility] Serum or plasma immunoglobul in free lambda light chains measurement (mass/volume)Ordered By: Christian Carlos on 02-10-2025 Immunoglobulin light chains.lambda.free [Mass/Vol] 10.6 mg/L 5.7-26.3 [facility] Serum total protein measurem entOrdered By: Christian Carlos on 02-10-2025 Protein [Mass/Vol] 6.3 g/dL Normal 6.0-8.5 [facility] Comment on above: Performed By: #### S PE, KAPPA, JIGAR SERUM ####[facility] , Sodium [Moles/volume] in Ser um or Plasmaon 02-10-2025 Sodium [Moles/Vol] 140 mmol/L Normal 136-145 [facility] Comment on above: Performed By: #### S CAN CBC, LDH, CMP #### [facility] [address] Urea nitrogen [Mass/volume] in Serum or Plasmaon 02-10-2025 Urea nitrogen [Mass/Vol] 22 mg/dL Normal 7-25 [facility] Comment on above: Performed By: #### S CAN CBC, LDH, CMP #### [facility] [address] [place] [id number] [place] aPTT in Platelet poor plasma by Coagulation assayOrdered By: Christian Carlos on 02-10-2025 aPTT Coag (PPP) [Time] 30.1 s 25.1-36.5 [facility] Comment on above: A hematocrit value g reater than 55% may lead to inaccurate results in coagulation testing. Patients having hematocrit values >55% require a special collection tube for coagulation studies. Please contact the laboratory at [phone] for redraw instructions. FLOWCYTOMETRY BANNERGENOMICon 0 01-18-2025 FLOWCYTOMETRY [facility] Comment on above: See report. Scanned copy available in EMR. [facility] Alanine aminotransferase [En zymatic activity/volume] in Serum or PlasmaOrdered By: Christian Carlos on 01-13-2025 ALT [Catalytic activity/Vol] 30 U/L Normal 7-52 [facility] Comment on above: Performed By: #### S CAN CBC, LDH, CMP #### [facility] [address] [place] [id number] [place] Albumin [Mass/volume] in Ser um or Plasma by Bromocresol green (BCG) dye binding methoOrdered By: Christian Carlos on 01-13-2025 Albumin BCG dye [Mass/Vol] 4.4 g/dL 3.5-5.7 [facility] Alkaline phosphatase [Enzyma tic activity/volume] in Serum or PlasmaOrdered By: Christian Carlos on 01-13-2025 ALP [Catalytic activity/Vol] 86 U/L Normal 34-104 [facility] Comment on above: Performed By: #### S CAN CBC, LDH, CMP #### [address] Aspartate aminotransferase [ Enzymatic activity/volume] in Serum or PlasmaOrdered By: Christian Carlos on 01-13-2025 AST [Catalytic activity/Vol] 33 U/L Normal 13-39 [facility] Comment on above: Performed By: #### S CAN CBC, LDH, CMP #### [address] Band form neutrophils/100 le ukocytes in Blood by Manual countOrdered By: Christian Carlos on 01-13-2025 Band form neutrophils/100 WBC (Bld) 2 % Normal 0-5 [facility] Comment on above: Performed By: #### S CAN CBC, LDH, CMP #### [address] Basophils Auto (Bld) [#/Vol] Ordered By: Christian Carlos on 01-13-2025 Basophils (Bld) [#/Vol] N/A [facility] Basophils/100 WBC Auto (Bld) Ordered By: Christian Carlos on 01-13-2025 Basophils/100 WBC (Bld) N/A [facility] Bilirubin.total [Mass/volume ] in Serum or PlasmaOrdered By: Christian Carlos on 01-13-2025 Bilirubin [Mass/Vol] 1.7 mg/dL High 0.3-1.0 [facility] Comment on above: Samples from patient s [...] for measuring Total Bilirubin. Performed By: #### S CAN CBC, LDH, CMP #### [address] [place] [address] [place] Calcium [Mass/volume] in Ser um or PlasmaOrdered By: Christian Carlos on 01-13-2025 Calcium [Mass/Vol] 9.0 mg/dL Normal 8.6-10.3 [facility] Comment on above: Performed By: #### S CAN CBC, LDH, CMP #### [address] Carbon dioxide, total [Moles /volume] in Serum or PlasmaOrdered By: Christian Carlos on 01-13-2025 CO2 [Moles/Vol] 33.8 mmol/L High 21.0-31.0 [facility] Comment on above: Performed By: #### S CAN CBC, LDH, CMP #### [address] Chloride [Moles/volume] in S hesham or PlasmaOrdered By: Christian Carlos on 01-13-2025 Chloride [Moles/Vol] 104 mmol/L Normal 98-107 [facility] Comment on above: Performed By: #### S CAN CBC, LDH, CMP #### [address] Comprehensive Metabolic Pane aline 01-13-2025 Albumin [Mass/Vol] 4.4 g/dL Normal 3.5-5.7 The Count Includes [facility] Comment on above: Performed By: #### S CAN CBC, LDH, CMP #### [facility] [address] [place] [address] [place] Creatinine Clr Calc Pharmacy 85.09 Normal The Count Includes [facility] Comment on above: Performed By: #### S CAN CBC, LDH, CMP #### [place] [address] [place] GFR/1.73 sq M.predicted MDRD (S/P/Bld) [Vol rate/Area] mL/min/{1.73_m2} Normal The Count Includes [facility] Comment on above: Performed By: #### S CAN CBC, LDH, CMP #### [address] Comprehensive metabolic pane aline 01-13-2025 Albumin [Mass/Vol] 4.4 g/dL 3.5 - 5.7 g/dL [facility] Albumin/Globulin [Mass ratio] 2.6 {ratio} [facility] ALP [Catalytic activity/Vol] 86 U/L 34 - 104 U/L [facility] ALT [Catalytic activity/Vol] 30 U/L 7 - 52 U/L [facility] Anion gap [Moles/Vol] 7.3 mmol/L 6.0 - 15.0 meq/L [facility] AST [Catalytic activity/Vol] 33 U/L 13 - 39 U/L [facility] Bilirubin [Mass/Vol] 1.7 mg/dL High 0.3 - 1 .0 mg/dL [facility] Comment on above: Samples from patient s who have taken Naproxen have shown spurious elevation in Total Bilirubin levels. A metabolite of Naproxen, O-desmethylnaproxen, has been shown to interfere with the Jenjoryik-Federica method for measuring Total Bilirubin. Calcium [Mass/Vol] 9 mg/dL 8.6 - 10. 3 mg/dL [facility] Chloride [Moles/Vol] 104 mmol/L 98 - 10 7 mmol/L [facility] CO2 [Moles/Vol] 33.8 mmol/L High 21.0 - 31.0 mmol/L [facility] Creatinine (U) [Mass/Vol] 0.95 mg/dL 0.70 - 1.30 mg/dL [facility] CREATININE CLR CALC PHARMACY 85.09 [facility] ESTIMATED GFR mL/Min [facility] Globulin (S) [Mass/Vol] 1.7 g/dL [facility] Glucose [Mass/Vol] 95 mg/dL 70 - 100 mg/dL [facility] Comment on above: Random Glucose Refer ence Range is dependent on time and content of last meal. Glucose of more than 200 mg/dL in a nonstressed, ambulatory subject supports the diagnosis of Diabetes Mellitus. ADA recommended reference range Potassium [Moles/Vol] 4.1 mmol/L 3.5 - 5.1 mmol/L [facility] Protein [Mass/Vol] 6.1 g/dL Low 6.4 - 8.9 g/dL [facility] Sodium [Moles/Vol] 141 mmol/L 136 - 145 mmol/L [facility] Urea nitrogen [Mass/Vol] 14 mg/dL 7 - 25 mg/dL [facility] Creatinine [Mass/volume] in Serum or PlasmaOrdered By: Christian Carlos on 01-13-2025 Creatinine [Mass/Vol] 0.95 mg/dL Normal 0.70-1.30 [facility] Comment on above: Performed By: #### S CAN CBC, LDH, CMP #### [address] Diff and CBCon 01-13-2025 Giant Platelet Tally 1 /100{WBC} Normal The Count Includes [facility] Comment on above: Performed By: #### S CAN CBC, LDH, CMP #### [address] Mean Corpuscular HGB Conc 35.6 g/dL Normal 32.5-35.6 The Count Includes [facility] Comment on above: Performed By: #### S CAN CBC, LDH, CMP #### [address] Platelet Estimate Decreased Normal Normal The Count Includes [facility] Comment on above: Performed By: #### S CAN CBC, LDH, CMP #### [address] Platelet Morphology Normal Normal Normal The Count Includes [facility] Comment on above: Result Comment: PERF ORMED BY: [place] [address] PATHOLOGIST NUCLEAR MEDICINE MEDICAL DIRECTOR SUSAN FREGOSO M.D. Performed By: #### S CAN CBC, LDH, CMP #### [address] Reactive Lymphocytes 2 % Normal 0-12 The Count Includes [facility] Comment on above: Performed By: #### S CAN CBC, LDH, CMP #### [place] [address] [place] Eosinophils Auto (Bld) [#/Vo l]Ordered By: Christian Carlos on 01-13-2025 Eosinophils (Bld) [#/Vol] N/A [facility] Eosinophils/100 WBC Auto (Bl d)Ordered By: Christian Carlos on 01-13-2025 Eosinophils/100 WBC (Bld) N/A [facility] Eosinophils/100 leukocytes i n Blood by Manual countOrdered By: Christian Carlos on 01-13-2025 Eosinophils/100 WBC (Bld) 4 % High 1-3 [facility] Comment on above: Performed By: #### S CAN CBC, LDH, CMP #### [facility] [address] Erythrocyte distribution wid th [Ratio] by Automated countOrdered By: Christian Carlos on 01-13-2025 Erythrocyte distribution width (RBC) [Ratio] 14.0 % Normal 12.0-14.8 [facility] Comment on above: Performed By: #### S CAN CBC, LDH, CMP #### [address] Erythrocyte morphology findi ng [Identifier] in BloodOrdered By: Christian Carlos on 01-13-2025 RBC morphology finding Nom (Bld) Normal Normal Normal [facility] Comment on above: Performed By: #### S CAN CBC, LDH, CMP #### [address] Erythrocytes [#/volume] in B lood by Automated countOrdered By: Christian Carlos on 01-13-2025 RBC (Bld) [#/Vol] 4.15 10*6/uL Normal 3.90-5.60 [facility] Comment on above: Performed By: #### S CAN CBC, LDH, CMP #### [address] Flowcytometry [employer] 0 01-13-2025 Flowcytometry [employer] Normal The Count Includes [facility] Comment on above: Result Comment: See report. Scanned copy available in EMR. PERFORMED BY: [place] [address] PATHOLOGIST NUCLEAR MEDICINE MEDICAL DIRECTOR DANIELLE QUINONES M.D. Performed By: #### F LOW NEOGENOMIC ####[facility] Giant platelets/100 leukocyt es [Ratio] in Blood by Manual countOrdered By: Christian Carlos on 01-13-2025 Giant platelets/100 WBC Manual cnt (Bld) [Ratio] 1 /100{WBC} [facility] Glucose [Mass/volume] in Ser um or PlasmaOrdered By: Christian Carlos on 01-13-2025 Glucose [Mass/Vol] 95 mg/dL Normal 70-100 [facility] Comment on above: ADA recommended refe rence rangeRandom Glucose Reference Range is dependent on time and content of last meal. Glucose of more than 200 mg/dL in a nonstressed, ambulatory subject supports the diagnosis of Diabetes Mellitus. Result Comment: [place] Glucose Reference Range is dependent on time and content of last meal. Glucose of more than 200 mg/dL in a nonstressed, ambulatory subject supports the diagnosis of Diabetes Mellitus. ADA recommended reference range Performed By: #### S CAN CBC, LDH, CMP #### [facility] [address] [place] [address] Hematocrit [Volume Fraction] of Blood by Automated countOrdered By: Christian Carlos on 01-13-2025 Hematocrit (Bld) [Volume fraction] 38.7 % Low 38.8-50.0 [facility] Comment on above: Performed By: #### S CAN CBC, LDH, CMP #### [facility] [address] [place] [address] Hemoglobin [Mass/volume] in BloodOrdered By: Christian Carlos on 01-13-2025 Hemoglobin (Bld) [Mass/Vol] 13.8 g/dL Normal 13.0-17.0 [facility] Comment on above: Performed By: #### S CAN CBC, LDH, CMP #### [facility] [address] [place] [address] LDH Lactate Dehydrogenaseon 01-13-2025 LDH Lactate Dehydrogenase 310 U/L High 140-271 The Count Includes [facility] Comment on above: Result Comment: PERF ORMED BY: [place] [address] PATHOLOGIST NUCLEAR MEDICINE MEDICAL DIRECTOR SUSAN FREGOSO M.D. Performed By: #### S CAN CBC, LDH, CMP #### [facility] [address] LDH Lactate to pyruvate reac tion [Catalytic activity/Vol]on 01-13-2025 LDH LACTATE DEHYDROGENASE 310 U/L High 140 - 271 U/L [facility] Lactate dehydrogenase [Enzym atic activity/volume] in Serum or Plasma by Lactate to pyOrdered By: Christian Carlos on 01-13-2025 LDH Lactate to pyruvate reaction [Catalytic activity/Vol] 310 U/L High 140-271 [facility] Leukocytes [#/volume] correc christophe for nucleated erythrocytes in Blood by Automated counOrdered By: Christian Carlos on 01-13-2025 WBC corrected for nucl RBC Auto (Bld) [#/Vol] 16.9 10*3/uL High 4.1-10.5 [facility] Leukocytes [#/volume] in Blo od by Automated countOrdered By: Christian Carlos on 01-13-2025 WBC (Bld) [#/Vol] 16.9 10*3/uL High 4.1-10.5 [facility] Comment on above: Performed By: #### S CAN CBC, LDH, CMP #### [facility] [address] [place] [address] Lymphocytes Auto (Bld) [#/Vo l]Ordered By: Christian Calros on 01-13-2025 Lymphocytes (Bld) [#/Vol] N/A [facility] Lymphocytes/100 WBC Auto (Bl d)Ordered By: Christian Carlos on 01-13-2025 Lymphocytes/100 WBC (Bld) N/A [facility] Lymphocytes/100 leukocytes i n Blood by Manual countOrdered By: Christian Carlos on 01-13-2025 Lymphocytes/100 WBC (Bld) 48 % High 18-42 [facility] Comment on above: Performed By: #### S CAN CBC, LDH, CMP #### [facility] [address] [place] [address] MCH [Entitic mass] by Automa christophe countOrdered By: Christian Carlos on 01-13-2025 MCH (RBC) [Entitic mass] 33.1 pg Normal 27.5-35.2 [facility] Comment on above: Performed By: #### S CAN CBC, LDH, CMP #### [facility] [address] MCHC Auto (RBC) [Mass/Vol]Or dered By: Christian Carlos on 01-13-2025 MCHC (RBC) [Mass/Vol] 35.6 g/dL 32.5-35.6 [facility] MCV [Entitic volume] by Auto mated countOrdered By: Christian Carlos on 01-13-2025 MCV (RBC) [Entitic vol] 93.1 fL Normal 83.5-101 [facility] Comment on above: Performed By: #### S CAN CBC, LDH, CMP #### [facility] [address] [place] [address] Monocytes Auto (Bld) [#/Vol] Ordered By: Christian Carlos on 01-13-2025 Monocytes (Bld) [#/Vol] N/A [facility] Monocytes/100 WBC Auto (Bld) Ordered By: Christian Carlos on 01-13-2025 Monocytes/100 WBC (Bld) N/A [facility] Monocytes/100 leukocytes in Blood by Manual countOrdered By: Christian Carlos on 01-13-2025 Monocytes/100 WBC (Bld) 6 % Normal 2-11 [facility] Comment on above: Performed By: #### S CAN CBC, LDH, CMP #### [facility] [address] [place] [address] Neutrophils Auto (Bld) [#/Vo l]Ordered By: Christian Carlos on 01-13-2025 Neutrophils (Bld) [#/Vol] N/A [facility] Neutrophils/100 WBC Auto (Bl d)Ordered By: Christian Carlos on 01-13-2025 Neutrophils/100 WBC (Bld) N/A [facility] No Panel Informationon 01-13 Interpretation and review of laboratory results Abnormal [facility] No Panel InformationOrdered By: Christian Carlos on 01-13-2025 Estimated GFR (CKD-EPI) > 60.0 mL/Min [facility] Creatinine Clearance (Chem 85.09 [facility] Nucleated erythrocytes [Pres ence] in Blood by Automated countOrdered By: Christian Carlos on 01-13-2025 Nucleated RBC Auto Ql (Bld) N/A [facility] Platelet adequacy [Presence] in Blood by Light microscopyOrdered By: Christian Carlos on 01-13-2025 Platelets LM Ql (Bld) Decreased Normal [facility] Platelet mean volume [Entiti c volume] in Blood by Automated countOrdered By: Christian Carlos on 01-13-2025 Platelet mean volume (Bld) [Entitic vol] 7.3 fL Normal 6.6-10.1 [facility] Comment on above: Performed By: #### S CAN CBC, LDH, CMP #### [facility] [address] [place] [address] Platelet morphology finding [Identifier] in BloodOrdered By: Christian Carlos on 01-13-2025 Platelet morphology finding Nom (Bld) Normal Normal [facility] Platelets [#/volume] in Bloo d by Automated countOrdered By: Christian Carlos on 01-13-2025 Platelets (Bld) [#/Vol] 136 10*3/uL Low 150-450 [facility] Comment on above: Performed By: #### S CAN CBC, LDH, CMP #### [facility] [address] [place] [address] [place] Potassium [Moles/volume] in Serum or PlasmaOrdered By: Christian Carlos on 01-13-2025 Potassium [Moles/Vol] 4.1 mmol/L Normal 3.5-5.1 [facility] Comment on above: Performed By: #### S CAN CBC, LDH, CMP #### [facility] [address] [place] [address] [place] Protein [Mass/volume] in Ser um or PlasmaOrdered By: Christian Carlos on 01-13-2025 Protein [Mass/Vol] 6.1 g/dL Low 6.4-8.9 [facility] Comment on above: Performed By: #### S CAN CBC, LDH, CMP #### [address] Segmented neutrophils/100 le ukocytes in Blood by Manual countOrdered By: Christian Carlos on 01-13-2025 Segmented neutrophils/100 WBC (Bld) 39 % Low 50-70 [facility] Comment on above: Performed By: #### S CAN CBC, LDH, CMP #### [address] Serum globulin measurement b y calculation (mass/volume)Ordered By: Christian Carlos on 01-13-2025 Globulin (S) [Mass/Vol] 1.7 g/dL [facility] Comment on above: Performed By: #### S CAN CBC, LDH, CMP #### [address] Serum or plasma albumin/glob ulin mass ratioOrdered By: Christian Carlos on 01-13-2025 Albumin/Globulin [Mass ratio] 2.6 {ratio} [facility] Comment on above: Performed By: #### S CAN CBC, LDH, CMP #### [address] Serum or plasma anion gap de terminationOrdered By: Christian Carlos on 01-13-2025 Anion gap [Moles/Vol] 7.3 mmol/L Normal 6.0-15.0 [facility] Comment on above: Performed By: #### S CAN CBC, LDH, CMP #### [address] Sodium [Moles/volume] in Ser um or PlasmaOrdered By: Christian Carlos on 01-13-2025 Sodium [Moles/Vol] 141 mmol/L Normal 136-145 [facility] Comment on above: Performed By: #### S CAN CBC, LDH, CMP #### [address] Urea nitrogen [Mass/volume] in Serum or PlasmaOrdered By: Christian Carlos on 01-13-2025 Urea nitrogen [Mass/Vol] 14 mg/dL Normal 7-25 [facility] Comment on above: Performed By: #### S CAN CBC, LDH, CMP #### [facility] [address] Variant lymphocytes/100 WBC Manual cnt (Bld)Ordered By: Christian Carlos on 01-13-2025 Variant lymphocytes/100 WBC (Bld) 2 % 0-12 [facility] A1C with Estimated Average G malgorzatan 11-30-2024 Glucose [Mass/Vol] 94 mg/dL Normal The Count Includes [facility] Comment on above: Result Comment: PERF ORMED BY: [place] [address] PATHOLOGIST NUCLEAR MEDICINE MEDICAL DIRECTOR SUSAN FREGOSO M.D. Performed By: #### S CAN CBC, LDH, CMP #### [address] Alanine aminotransferase [En zymatic activity/volume] in Serum or PlasmaOrdered By: Russell Gómez on 11-30-2024 ALT [Catalytic activity/Vol] Alanine aminotransferase [Enzymatic activity/volume] in Serum or Plasma [facility] ALT [Catalytic activity/Vol] 28 U/L Normal [facility] Comment on above: Performed By: #### S CAN CBC, LDH, CMP #### [address] Albumin [Mass/volume] in Ser um or Plasma by Bromocresol green (BCG) dye binding methoOrdered By: Russell Gómez on 11-30-2024 Albumin BCG dye [Mass/Vol] Albumin [Mass/volume] in Serum or Plasma by Bromocresol green (BCG) dye binding metho 3.5-5.7 [facility] Albumin BCG dye [Mass/Vol] 4.3 g/dL 3.5-5.7 [facility] Alkaline phosphatase [Enzyma tic activity/volume] in Serum or PlasmaOrdered By: Russell Gómez on 11-30-2024 ALP [Catalytic activity/Vol] Alkaline phosphatase [Enzymatic activity/volume] in Serum or Plasma 34-104 [facility] ALP [Catalytic activity/Vol] 85 U/L Normal 34-104 [facility] Comment on above: Result Comment: PERF ORMED BY: [place] [address] PATHOLOGIST NUCLEAR MEDICINE MEDICAL DIRECTOR SUSAN FREGOSO M.D. Performed By: #### S CAN CBC, LDH, CMP #### [facility] [address] [place] [address] [place] Aspartate aminotransferase [ Enzymatic activity/volume] in Serum or PlasmaOrdered By: Russell Gómez on 11-30-2024 AST [Catalytic activity/Vol] Aspartate aminotransferase [Enzymatic activity/volume] in Serum or Plasma [facility] AST [Catalytic activity/Vol] 29 U/L Normal 39 [facility] Comment on above: Performed By: #### S CAN CBC, LDH, CMP #### [facility] [address] [place] [address] Basophils Auto (Bld) [#/Vol] Ordered By: Russell Gómez on 11-30-2024 Basophils (Bld) [#/Vol] Automated basophil count 0.0-0.2 [facility] Basophils [#/volume] in Bloo d by Automated countOrdered By: Russell Gómez on 11-30-2024 Basophils (Bld) [#/Vol] 0.0 10*3/uL Normal 0.0-0.2 [facility] Comment on above: Result Comment: PERF ORMED BY: [address] [address] PATHOLOGIST NUCLEAR MEDICINE MEDICAL DIRECTOR SUSAN FREGOSO M.D. Performed By: #### S CAN CBC, LDH, CMP #### [facility] [address] [place], [place] [id number] [place] Basophils/100 WBC Auto (Bld) Ordered By: Russell Gómez on 11-30-2024 Basophils/100 WBC (Bld) Automated basophil % . [facility] Basophils/100 leukocytes in Blood by Automated countOrdered By: Russell Gómez on 11-30-2024 Basophils/100 WBC (Bld) 0.2 % Normal . [facility] Comment on above: Performed By: #### S CAN CBC, LDH, CMP #### [facility] [address] Bilirubin.total [Mass/volume ] in Serum or PlasmaOrdered By: Russell Gómez on 11-30-2024 Bilirubin [Mass/Vol] Bilirubin.total [Mass/volume] in Serum or Plasma 0.3-1.0 [facility] Bilirubin [Mass/Vol] 1.0 mg/dL Normal 0.3-1.0 [facility] Comment on above: Performed By: #### S CAN CBC, LDH, CMP #### [facility] [address] Blood estimated average gluc ose determination by estimation from glycated hemoglobinOrdered By: Russell Gómez on 11-30-2024 Average glucose Estimated from glycated hemoglobin (Bld) [Mass/Vol] Glucose mean value [Mass/volume] in Blood Estimated from glycated hemoglobin [facility] Average glucose Estimated from glycated hemoglobin (Bld) [Mass/Vol] 94 mg/dL [facility] Calcium [Mass/volume] in Ser um or PlasmaOrdered By: Russell Gómez on 11-30-2024 Calcium [Mass/Vol] Calcium [Mass/volume ] in Serum or Plasma 8.6-10.3 [facility] Calcium [Mass/Vol] 9.5 mg/dL Normal 8.6-10.3 [facility] Comment on above: Performed By: #### S CAN CBC, LDH, CMP #### [facility] [address] Carbon dioxide, total [Moles /volume] in Serum or PlasmaOrdered By: Russell Gómez on 11-30-2024 CO2 [Moles/Vol] Carbon dioxide, tota l [Moles/volume] in Serum or Plasma High 21.0-31.0 [facility] CO2 [Moles/Vol] 34.1 mmol/L High 21.0-31.0 [facility] Comment on above: Performed By: #### S CAN CBC, LDH, CMP #### [facility] [address] Chloride [Moles/volume] in S hesham or PlasmaOrdered By: Russell Gómez on 11-30-2024 Chloride [Moles/Vol] Chloride [Moles/vol ume] in Serum or Plasma 98-107 [facility] Chloride [Moles/Vol] 104 mmol/L Normal 98-107 [facility] Comment on above: Performed By: #### S CAN CBC, LDH, CMP #### [facility] [address] [place] [address] [place] Cholesterol [Mass/volume] in Serum or PlasmaOrdered By: Russell Gómez on 11-30-2024 Cholesterol [Mass/Vol] Cholesterol [Mass /volume] in Serum or Plasma 140-200 [facility] Comment on above: Chol less than 200 m g/dl low riskChol 201-239 mg/dl borderline riskChol 240 mg/dl and greater high risk Cholesterol [Mass/Vol] 169 mg/dL Normal 140-200 [facility] Comment on above: Chol less than 200 m g/dl low riskChol 201-239 mg/dl borderline riskChol 240 mg/dl and greater high risk Result Comment: Chol less than 200 mg/dl low risk Chol 201-239 mg/dl borderline risk Chol 240 mg/dl and greater high risk Performed By: #### S CAN CBC, LDH, CMP #### [facility] [address] [place] [address] [place] Cholesterol in HDL [Mass/vol ume] in Serum or PlasmaOrdered By: Russell Gómez on 11-30-2024 Cholesterol in HDL [Mass/Vol] Serum or plasma high density lipoprotein (HDL) cholesterol measurement [facility] Comment on above: HDL CHOL ATP-III CLA SSIFICATION Cardiovascular RiskHDL > or equal to 60 mg/dL LOWHDL < 40 mg/dL HIGH Cholesterol in HDL [Mass/Vol] 59 mg/dL Normal - [facility] Comment on above: HDL CHOL ATP-III CLA SSIFICATION Cardiovascular RiskHDL > or equal to 60 mg/dL LOWHDL < 40 mg/dL HIGH Result Comment: HDL CHOL ATP-III CLASSIFICATION Cardiovascular Risk HDL > or equal to 60 mg/dL LOW HDL < 40 mg/dL HIGH Performed By: #### S CAN CBC, LDH, CMP #### [facility] [address] Cholesterol in LDL Calc [Mas s/Vol]Ordered By: Russell Gómez on 11-30-2024 Cholesterol in LDL [Mass/Vol] Cholesterol in LDL [Mass/volume] in Serum or Plasma by calculation 0-100 [facility] Comment on above: LDL ATP III CLASSIFI CATIONLDL less than 100 mg/dL OptimalLDL 100-129 mg/dL Near or above optimalLDL 130-159 mg/dL Borderline highLDL 160-189 mg/dL HighLDL greater than 189 mg/dL Very high Cholesterol in LDL [Mass/Vol] 93 mg/dL 0-100 [facility] Comment on above: LDL ATP III CLASSIFI CATIONLDL less than 100 mg/dL OptimalLDL 100-129 mg/dL Near or above optimalLDL 130-159 mg/dL Borderline highLDL 160-189 mg/dL HighLDL greater than 189 mg/dL Very high Cholesterol in VLDL Calc [Ma ss/Vol]Ordered By: Russell Gómez on 11-30-2024 Cholesterol in VLDL [Mass/Vol] Cholesterol in VLDL [Mass/volume] in Serum or Plasma by calculation [facility] Cholesterol in VLDL [Mass/Vol] 17 mg/dL [facility] Complete Blood Count no refl exon 11-30-2024 Mean Corpuscular HGB Conc 34.3 g/dL Normal 32.5-35.6 The Count Includes [facility] Comment on above: Performed By: #### S CAN CBC, LDH, CMP #### [facility] [address] [place] [id number] [facility] NRBC% 0.2 /100{WBC} Normal 0-0.5 The Count Includes [facility] Comment on above: Performed By: #### S CAN CBC, LDH, CMP #### [facility] [address] [place] [id number] [facility] Comprehensive Metabolic Pane aline 11-30-2024 Albumin [Mass/Vol] 4.3 g/dL Normal 3.5-5.7 The Count Includes [facility] Comment on above: Performed By: #### S CAN CBC, LDH, CMP #### [facility] [address] [place] [id number] [facility] GFR/1.73 sq M.predicted MDRD (S/P/Bld) [Vol rate/Area] mL/min/{1.73_m2} Normal The Count Includes [facility] Comment on above: Performed By: #### S CAN CBC, LDH, CMP #### [address] Creatinine [Mass/volume] in Serum or PlasmaOrdered By: Russell Gómez on 11-30-2024 Creatinine [Mass/Vol] Creatinine [Mass/v olume] in Serum or Plasma 0.70-1.30 [facility] Creatinine [Mass/Vol] 0.81 mg/dL Normal 0.70-1.30 [facility] Comment on above: Performed By: #### S CAN CBC, LDH, CMP #### [address] Employee PSA Totalon 025 PSA Total (CoreDial Orders) 0.650 ng/mL Normal 0.000-4.00 0 The Count Includes [facility] Comment on above: Result Comment: [place] tumor marker results determined by assays using different manufacturers or methods may not be comparable. Count Includes [facility] software licensing executive and method: [employer] DXI, CHEMILUMINESCENT IMMUNOASSAY. PERFORMED BY: [place] [address] PATHOLOGIST NUCLEAR MEDICINE MEDICAL DIRECTOR SUSAN FREGOSO M.D. Performed By: #### S CAN CBC, LDH, CMP #### [address] Eosinophils Auto (Bld) [#/Vo l]Ordered By: Russell Gómez on 11-30-2024 Eosinophils (Bld) [#/Vol] Automated eosinophil count 0.0-0.45 [facility] Eosinophils [#/volume] in Bl ood by Automated countOrdered By: Russell Gómez on 11-30-2024 Eosinophils (Bld) [#/Vol] 0.2 10*3/uL Normal 0.0-0.45 [facility] Comment on above: Performed By: #### S CAN CBC, LDH, CMP #### [facility] [address] [place] [address] [place] Eosinophils/100 WBC Auto (Bl d)Ordered By: Russell Gómez on 11-30-2024 Eosinophils/100 WBC (Bld) Automated eosinophil % . [facility] Eosinophils/100 leukocytes i n Blood by Automated countOrdered By: Russell Gómez on 11-30-2024 Eosinophils/100 WBC (Bld) 1.1 % Normal . [facility] Comment on above: Performed By: #### S CAN CBC, LDH, CMP #### [facility] [address] Erythrocyte distribution wid th Auto (RBC) [Ratio]Ordered By: Russell Gómez on 11-30-2024 Erythrocyte distribution width (RBC) [Ratio] Erythrocyte distribution width [Ratio] by Automated count 12.0-14.8 [facility] Erythrocyte distribution wid th [Ratio] by Automated countOrdered By: Russell Gómez on 11-30-2024 Erythrocyte distribution width (RBC) [Ratio] 13.2 % Normal 12.0-14.8 [facility] Comment on above: Performed By: #### S CAN CBC, LDH, CMP #### [facility] [address] Erythrocytes [#/volume] in B lood by Automated countOrdered By: Russell Gómez on 11-30-2024 RBC (Bld) [#/Vol] 4.67 10*6/uL Normal 3.90-5.60 [facility] Comment on above: Performed By: #### S CAN CBC, LDH, CMP #### [facility] [address] [place] [address] Globulin Calc (S) [Mass/Vol] Ordered By: Russell Gómez on 11-30-2024 Globulin (S) [Mass/Vol] Serum globulin measurement by calculation (mass/volume) [facility] Glucose [Mass/volume] in Ser um or PlasmaOrdered By: Russell Gómez on 11-30-2024 Glucose [Mass/Vol] Glucose [Mass/volume ] in Serum or Plasma 70-100 [facility] Comment on above: ADA recommended refe rence rangeRandom Glucose Reference Range is dependent on time and content of last meal. Glucose of more than 200 mg/dL in a nonstressed, ambulatory subject supports the diagnosis of Diabetes Mellitus. Glucose [Mass/Vol] 91 mg/dL Normal 70-100 [facility] Comment on above: ADA recommended refe rence rangeRandom Glucose Reference Range is dependent on time and content of last meal. Glucose of more than 200 mg/dL in a nonstressed, ambulatory subject supports the diagnosis of Diabetes Mellitus. Result Comment: [place] om Glucose Reference Range is dependent on time and content of last meal. Glucose of more than 200 mg/dL in a nonstressed, ambulatory subject supports the diagnosis of Diabetes Mellitus. ADA recommended reference range Performed By: #### S CAN CBC, LDH, CMP #### [facility] [address] Hematocrit Auto (Bld) [Volum e fraction]Ordered By: Russell Gómez on 11-30-2024 Hematocrit (Bld) [Volume fraction] Hematocrit [Volume Fraction] of Blood by Automated count 38.8-50.0 [facility] Hematocrit [Volume Fraction] of Blood by Automated countOrdered By: Russell Gómez on 11-30-2024 Hematocrit (Bld) [Volume fraction] 43.3 % Normal 38.8-50.0 [facility] Comment on above: Performed By: #### S CAN CBC, LDH, CMP #### [facility] [address] Hemoglobin A1c/Hemoglobin.to edouard in BloodOrdered By: Russell Gómez on 11-30-2024 HbA1c (Bld) [Mass fraction] Hemoglobin A1c percentage 4.3-5.6 [facility] Comment on above: Increased risk for d iabetes: 5.7 - 6.4diabetes: >6.4glycemic control for adults with diabetes: <7.0 HbA1c (Bld) [Mass fraction] 4.9 % Normal 4.3-5.6 [facility] Comment on above: Increased risk for d iabetes: 5.7 - 6.4diabetes: >6.4glycemic control for adults with diabetes: <7.0 Result Comment: Incr eased risk for diabetes: 5.7 - 6.4 diabetes: >6.4 glycemic control for adults with diabetes: <7.0 Performed By: #### S CAN CBC, LDH, CMP #### [facility] [address] Hemoglobin [Mass/volume] in BloodOrdered By: Russell Gómez on 11-30-2024 Hemoglobin (Bld) [Mass/Vol] Hemoglobin [Mass/volume] in Blood 13.0-17.0 [facility] Hemoglobin (Bld) [Mass/Vol] 14.9 g/dL Normal 13.0-17.0 [facility] Comment on above: Performed By: #### S CAN CBC, LDH, CMP #### [facility] [address] Leukocytes [#/volume] correc christophe for nucleated erythrocytes in Blood by Automated counOrdered By: Russell Gómez on 11-30-2024 WBC corrected for nucl RBC Auto (Bld) [#/Vol] Leukocytes [#/volume] corrected for nucleated erythrocytes in Blood by Automated coun High 4.1-10.5 [facility] WBC corrected for nucl RBC Auto (Bld) [#/Vol] 19.5 10*3/uL High 4.1-10.5 [facility] Leukocytes [#/volume] in Blo od by Automated countOrdered By: Russell Gómez on 11-30-2024 WBC (Bld) [#/Vol] 19.5 10*3/uL High 4.1-10.5 [facility] Comment on above: Performed By: #### S CAN CBC, LDH, CMP #### [address] Lipid Panelon 11-30-2024 LDL Cholesterol,Calculated 93 mg/dL Normal 0-100 The Count Includes [facility] Comment on above: Result Comment: LDL ATP III CLASSIFICATION LDL less than 100 mg/dL Optimal LDL 100-129 mg/dL Near or above optimal LDL 130-159 mg/dL Borderline high LDL 160-189 mg/dL High LDL greater than 189 mg/dL Very high Performed By: #### S CAN CBC, LDH, CMP #### [address] Triglyceride w/Reflex 86 mg/dL Normal 0-149 The Count Includes [facility] Comment on above: Result Comment: TRIG ATP III CLASSIFICATION TRIG less than 150 mg/dL Normal TRIG 150-199 mg/dL Borderline high TRIG 200-500 mg/dL High TRIG greater than 500 mg/dL Very high Standard traceable to the Center for Disease Conrtrol and Prevention (CDC) test method. Performed By: #### S CAN CBC, LDH, CMP #### [address] VLDL CHOLESTEROL 17 mg/dL Normal The Count Includes [facility] Comment on above: Performed By: #### S CAN CBC, LDH, CMP #### [address] Lymphocytes Auto (Bld) [#/Vo l]Ordered By: Russell Gómez on 11-30-2024 Lymphocytes (Bld) [#/Vol] Lymphocytes [#/volume] in Blood by Automated count High 1.00-4.8 [facility] Lymphocytes [#/volume] in Bl ood by Automated countOrdered By: Russell Gómez on 11-30-2024 Lymphocytes (Bld) [#/Vol] 14.4 10*3/uL High 1.00-4.8 [facility] Comment on above: Performed By: #### S CAN CBC, LDH, CMP #### [address] Lymphocytes/100 WBC Auto (Bl d)Ordered By: Russell Gómez on 11-30-2024 Lymphocytes/100 WBC (Bld) Lymphocytes/100 leukocytes in Blood by Automated count . [facility] Lymphocytes/100 leukocytes i n Blood by Automated countOrdered By: Russell Gómez on 11-30-2024 Lymphocytes/100 WBC (Bld) 74.0 % Normal . [facility] Comment on above: Performed By: #### S CAN CBC, LDH, CMP #### [address] MCH Auto (RBC) [Entitic mass ]Ordered By: Russell Gómez on 11-30-2024 MCH (RBC) [Entitic mass] MCH [Entitic mass] by Automated count 27.5-35.2 [facility] MCH [Entitic mass] by Automa christophe countOrdered By: Russell Gómez on 11-30-2024 MCH (RBC) [Entitic mass] 31.8 pg Normal 27.5-35.2 [facility] Comment on above: Performed By: #### S CAN CBC, LDH, CMP #### [facility] [address] [place] [address] MCHC Auto (RBC) [Mass/Vol]Or dered By: Russell Gómez on 11-30-2024 MCHC (RBC) [Mass/Vol] MCHC [Mass/volume] by Automated count 32.5-35.6 [facility] MCHC (RBC) [Mass/Vol] 34.3 g/dL 32.5-35.6 [facility] MCV Auto (RBC) [Entitic vol] Ordered By: Russell Gómez on 11-30-2024 MCV (RBC) [Entitic vol] MCV [Entitic volume] by Automated count 83.5-101 [facility] MCV [Entitic volume] by Auto mated countOrdered By: Russell Gómez on 11-30-2024 MCV (RBC) [Entitic vol] 92.8 fL Normal 83.5-101 [facility] Comment on above: Performed By: #### S CAN CBC, LDH, CMP #### [facility] [address] [place] [address] Monocytes Auto (Bld) [#/Vol] Ordered By: Russell Gómez on 11-30-2024 Monocytes (Bld) [#/Vol] Automated blood monocyte count 0.0-0.8 [facility] Monocytes [#/volume] in Bloo d by Automated countOrdered By: Russell Gómez on 11-30-2024 Monocytes (Bld) [#/Vol] 0.4 10*3/uL Normal 0.0-0.8 [facility] Comment on above: Performed By: #### S CAN CBC, LDH, CMP #### [facility] [address] [place] [address] Monocytes/100 WBC Auto (Bld) Ordered By: Russell Gómez on 11-30-2024 Monocytes/100 WBC (Bld) Automated monocyte % . [facility] Monocytes/100 leukocytes in Blood by Automated countOrdered By: Russell Gómez on 11-30-2024 Monocytes/100 WBC (Bld) 2.3 % Normal . [facility] Comment on above: Performed By: #### S CAN CBC, LDH, CMP #### [facility] [address] Neutrophils Auto (Bld) [#/Vo l]Ordered By: Russell Gómez on 11-30-2024 Neutrophils (Bld) [#/Vol] Neutrophils [#/volume] in Blood by Automated count 1.8-7.7 [facility] Neutrophils [#/volume] in Bl ood by Automated countOrdered By: Russell Gómez on 11-30-2024 Neutrophils (Bld) [#/Vol] 4.4 10*3/uL Normal 1.8-7.7 [facility] Comment on above: Performed By: #### S CAN CBC, LDH, CMP #### [facility] [address] [place] [address] Neutrophils/100 WBC Auto (Bl d)Ordered By: Russell Gómez on 11-30-2024 Neutrophils/100 WBC (Bld) Automated neutrophil % . [facility] Neutrophils/100 leukocytes i n Blood by Automated countOrdered By: Russell Gómez on 11-30-2024 Neutrophils/100 WBC (Bld) 22.4 % Normal . [facility] Comment on above: Performed By: #### S CAN CBC, LDH, CMP #### [facility] [address] [place] [address] No Panel InformationOrdered By: Russell Gómez on 11-30-2024 Estimated GFR (CKD-EPI) > 60.0 mL/Min [facility] Creatinine Clearance (Chem N/A [facility] Nucleated erythrocytes [Pres ence] in Blood by Automated countOrdered By: Russell Gómez on 11-30-2024 Nucleated RBC Auto Ql (Bld) Nucleated erythrocytes [Presence] in Blood by Automated count 0-0.5 [facility] Nucleated RBC Auto Ql (Bld) 0.2 /100{WBC} 0-0.5 [facility] Platelet mean volume Auto (B ld) [Entitic vol]Ordered By: Russell Gómez on 11-30-2024 Platelet mean volume (Bld) [Entitic vol] Platelet mean volume [Entitic volume] in Blood by Automated count 6.6-10.1 [facility] Platelet mean volume [Entiti c volume] in Blood by Automated countOrdered By: Russell Gómez on 11-30-2024 Platelet mean volume (Bld) [Entitic vol] 8.6 fL Normal 6.6-10.1 [facility] Comment on above: Performed By: #### S CAN CBC, LDH, CMP #### [facility] [address] Platelets Auto (Bld) [#/Vol] Ordered By: Russell Gómez on 11-30-2024 Platelets (Bld) [#/Vol] Platelets [#/volume] in Blood by Automated count Low 150-450 [facility] Platelets [#/volume] in Bloo d by Automated countOrdered By: Russell Gómez on 11-30-2024 Platelets (Bld) [#/Vol] 121 10*3/uL Low 150-450 [facility] Comment on above: Performed By: #### S CAN CBC, LDH, CMP #### [facility] [address] [place] [address] [place] Potassium [Moles/volume] in Serum or PlasmaOrdered By: Russell Gómez on 11-30-2024 Potassium [Moles/Vol] Potassium [Moles/v olume] in Serum or Plasma 3.5-5.1 [facility] Potassium [Moles/Vol] 3.8 mmol/L Normal 3.5-5.1 [facility] Comment on above: Performed By: #### S CAN CBC, LDH, CMP #### [facility] [address] [place] [address] [place] Prostate specific Ag [Mass/v olume] in Serum or PlasmaOrdered By: Russell Gómez on 11-30-2024 Prostate specific Ag [Mass/Vol] Prostate specific Ag [Mass/volume] in Serum or Plasma 0.000-4.00 0 [facility] Comment on above: Serial tumor marker results determined by assays using different manufacturers or methods may not be comparable.Count Includes [facility] software licensing executive and method:[employer]ARJ[employer] UNICEL DXI, CHEMILUMINESCENT IMMUNOASSAY. Prostate specific Ag [Mass/Vol] 0.650 ng/mL 0.000-4.00 0 [facility] Comment on above: Serial tumor marker results determined by assays using different manufacturers or methods may not be comparable.Count Includes [facility] software licensing executive and method:[employer] DXI, CHEMILUMINESCENT IMMUNOASSAY. Protein [Mass/volume] in Ser um or PlasmaOrdered By: Russell Gómez on 11-30-2024 Protein [Mass/Vol] Protein [Mass/volume ] in Serum or Plasma Low 6.4-8.9 [facility] Protein [Mass/Vol] 6.3 g/dL Low 6.4-8.9 [facility] Comment on above: Performed By: #### S CAN CBC, LDH, CMP #### [facility] [address] [place] [address] RBC Auto (Bld) [#/Vol]Ordere d By: Russell Gómez on 11-30-2024 RBC (Bld) [#/Vol] Erythrocytes [#/volu me] in Blood by Automated count 3.90-5.60 [facility] Serum globulin measurement b y calculation (mass/volume)Ordered By: Russell Gómez on 11-30-2024 Globulin (S) [Mass/Vol] 2.0 g/dL Normal [facility] Comment on above: Performed By: #### S CAN CBC, LDH, CMP #### [facility] [address] [place] [address] Serum or plasma albumin/glob ulin mass ratioOrdered By: Russell Gómez on 11-30-2024 Albumin/Globulin [Mass ratio] Serum or plasma albumin/globulin mass ratio [facility] Albumin/Globulin [Mass ratio] 2.2 {ratio} Normal [facility] Comment on above: Performed By: #### S CAN CBC, LDH, CMP #### [facility] [address] [place] [address] Serum or plasma anion gap de terminationOrdered By: Russell Gómez on 11-30-2024 Anion gap [Moles/Vol] Serum or plasma an ion gap determination 6.0-15.0 [facility] Anion gap [Moles/Vol] 7.7 mmol/L Normal 6.0-15.0 [facility] Comment on above: Performed By: #### S CAN CBC, LDH, CMP #### [facility] [address] Serum or plasma total choles terol/high density lipoprotein (HDL) cholesterol mass ratOrdered By: Russell Gómez on 11-30-2024 Cholesterol.total/Chol esterol in HDL [Mass ratio] Serum or plasma total cholesterol/high density lipoprotein (HDL) cholesterol mass rat <5.0 [facility] Cholesterol.total/Chol esterol in HDL [Mass ratio] 2.9 {ratio} Normal <5.0 [facility] Comment on above: Result Comment: PERF ORMED BY: [place] [address] PATHOLOGIST NUCLEAR MEDICINE MEDICAL DIRECTOR SUSAN FREGOSO M.D. Performed By: #### S CAN CBC, LDH, CMP #### [address] Sodium [Moles/volume] in Ser um or PlasmaOrdered By: Russell Gómez on 11-30-2024 Sodium [Moles/Vol] Sodium [Moles/volume ] in Serum or Plasma 136-145 [facility] Sodium [Moles/Vol] 142 mmol/L Normal 136-145 [facility] Comment on above: Performed By: #### S CAN CBC, LDH, CMP #### [facility] [address] [place] [address] Triglyceride [Mass/volume] i n Serum or PlasmaOrdered By: Russell Gómez on 11-30-2024 Triglyceride [Mass/Vol] Triglyceride [Mass/volume] in Serum or Plasma 0-149 [facility] Comment on above: TRIG ATP III CLASSIF ICATIONTRIG less than 150 mg/dL NormalTRIG 150-199 mg/dL Borderline highTRIG 200-500 mg/dL High TRIG greater than 500 mg/dL Very highStandard traceable to the Center for Disease Conrtrol and Prevention (CDC) test method. Triglyceride [Mass/Vol] 86 mg/dL 0-149 [facility] Comment on above: TRIG ATP III CLASSIF ICATIONTRIG less than 150 mg/dL NormalTRIG 150-199 mg/dL Borderline highTRIG 200-500 mg/dL High TRIG greater than 500 mg/dL Very highStandard traceable to the Center for Disease Conrtrol and Prevention (CDC) test method. Urea nitrogen [Mass/volume] in Serum or PlasmaOrdered By: Russell Gómez on 11-30-2024 Urea nitrogen [Mass/Vol] Urea nitrogen [Mass/volume] in Serum or Plasma 03-18 [facility] Urea nitrogen [Mass/Vol] 15 mg/dL Normal 03-18 [facility] Comment on above: Performed By: #### S CAN CBC, LDH, CMP #### [facility] [address] [place] [address] WBC Auto (Bld) [#/Vol]Ordere d By: Russell Gómez on 11-30-2024 WBC (Bld) [#/Vol] Leukocytes [#/volume ] in Blood by Automated count High 4.1-10.5 [facility] Alanine aminotransferase [En zymatic activity/volume] in Serum or PlasmaOrdered By: Jose Solares on 11-12-2024 ALT [Catalytic activity/Vol] Alanine aminotransferase [Enzymatic activity/volume] in Serum or Plasma [facility] Albumin [Mass/volume] in Ser um or Plasma by Bromocresol green (BCG) dye binding methoOrdered By: Jose Solares on 11-12-2024 Albumin BCG dye [Mass/Vol] Albumin [Mass/volume] in Serum or Plasma by Bromocresol green (BCG) dye binding metho 3.5-5.7 [facility] Alkaline phosphatase [Enzyma tic activity/volume] in Serum or PlasmaOrdered By: Jose Solares on 11-12-2024 ALP [Catalytic activity/Vol] Alkaline phosphatase [Enzymatic activity/volume] in Serum or Plasma 34-104 [facility] Aspartate aminotransferase [ Enzymatic activity/volume] in Serum or PlasmaOrdered By: Jose Solares on 11-12-2024 AST [Catalytic activity/Vol] Aspartate aminotransferase [Enzymatic activity/volume] in Serum or Plasma 13-39 [facility] Basophils Auto (Bld) [#/Vol] Ordered By: Jose Solares on 11-12-2024 Basophils (Bld) [#/Vol] Automated basophil count 0.0-0.2 [facility] Basophils/100 WBC Auto (Bld) Ordered By: Jose Sujatha on 11-12-2024 Basophils/100 WBC (Bld) Automated basophil % . [facility] Bilirubin.total [Mass/volume ] in Serum or PlasmaOrdered By: Jose Solares on 11-12-2024 Bilirubin [Mass/Vol] Bilirubin.total [Mass/volume] in Serum or Plasma High 0.3-1.0 [facility] Calcium [Mass/volume] in Ser um or PlasmaOrdered By: Jose Solares on 11-12-2024 Calcium [Mass/Vol] Calcium [Mass/volume ] in Serum or Plasma 8.6-10.3 [facility] Carbon dioxide, total [Moles /volume] in Serum or PlasmaOrdered By: Jose Solares on 11-12-2024 CO2 [Moles/Vol] Carbon dioxide, tota l [Moles/volume] in Serum or Plasma High 21.0-31.0 [facility] Chloride [Moles/volume] in S hesham or PlasmaOrdered By: Jose Solares on 11-12-2024 Chloride [Moles/Vol] Chloride [Moles/vol ume] in Serum or Plasma 98-107 [facility] Comprehensive Metabolic Pane aline 11-12-2024 Albumin [Mass/Vol] 4.4 g/dL Normal 3.5-5.7 The Count Includes [facility] Comment on above: Performed By: #### S CAN CBC, LDH, CMP #### [facility] [address] Albumin/Globulin [Mass ratio] 2.3 {ratio} Normal The Count Includes [facility] Comment on above: Performed By: #### S CAN CBC, LDH, CMP #### [facility] [address] ALP [Catalytic activity/Vol] 89 U/L Normal 34-104 The Count Includes [facility] Comment on above: Performed By: #### S CAN CBC, LDH, CMP #### [facility] [address] ALT [Catalytic activity/Vol] 28 U/L Normal 7-52 The Count Includes [facility] Comment on above: Performed By: #### S CAN CBC, LDH, CMP #### [facility] [address] Anion gap [Moles/Vol] 8.2 mmol/L Normal 6.0-15.0 The Count Includes [facility] Comment on above: Performed By: #### S CAN CBC, LDH, CMP #### [address] AST [Catalytic activity/Vol] 27 U/L Normal 13-39 The Count Includes [facility] Comment on above: Performed By: #### S CAN CBC, LDH, CMP #### [address] Bilirubin [Mass/Vol] 1.1 mg/dL High 0.3-1.0 The Count Includes [facility] Comment on above: Performed By: #### S CAN CBC, LDH, CMP #### [address] Calcium [Mass/Vol] 8.8 mg/dL Normal 8.6-10.3 The Count Includes [facility] Comment on above: Performed By: #### S CAN CBC, LDH, CMP #### [address] Chloride [Moles/Vol] 106 mmol/L Normal 98-107 The Count Includes [facility] Comment on above: Performed By: #### S CAN CBC, LDH, CMP #### [place] [address] [place] CO2 [Moles/Vol] 31.9 mmol/L High 21.0-31.0 The Count Includes [facility] Comment on above: Performed By: #### S CAN CBC, LDH, CMP #### [place] [address] [place] Creatinine [Mass/Vol] 0.83 mg/dL Normal 0.70-1.30 The Count Includes [facility] Comment on above: Performed By: #### S CAN CBC, LDH, CMP #### [place] [address] [place] Creatinine Clr Calc Pharmacy 97.39 Normal The Count Includes [facility] Comment on above: Performed By: #### S CAN CBC, LDH, CMP #### [facility] [address] [place] [address] [place] GFR/1.73 sq M.predicted MDRD (S/P/Bld) [Vol rate/Area] mL/min/{1.73_m2} Normal The Count Includes [facility] Comment on above: Performed By: #### S CAN CBC, LDH, CMP #### [facility] [address] Globulin (S) [Mass/Vol] 1.9 g/dL Normal The Count Includes [facility] Comment on above: Performed By: #### S CAN CBC, LDH, CMP #### [address] Glucose [Mass/Vol] 93 mg/dL Normal 70-100 The Count Includes [facility] Comment on above: Result Comment: [facility] Glucose Reference Range is dependent on time and content of last meal. Glucose of more than 200 mg/dL in a nonstressed, ambulatory subject supports the diagnosis of Diabetes Mellitus. ADA recommended reference range Performed By: #### S CAN CBC, LDH, CMP #### [address] Potassium [Moles/Vol] 4.1 mmol/L Normal 3.5-5.1 The Count Includes [facility] Comment on above: Performed By: #### S CAN CBC, LDH, CMP #### [place] [address] [place] Protein [Mass/Vol] 6.3 g/dL Low 6.4-8.9 The Count Includes [facility] Comment on above: Performed By: #### S CAN CBC, LDH, CMP #### [place] [address] [place] Sodium [Moles/Vol] 142 mmol/L Normal 136-145 The Count Includes [facility] Comment on above: Performed By: #### S CAN CBC, LDH, CMP #### [address] Urea nitrogen [Mass/Vol] 17 mg/dL Normal 7-25 The Count Includes [facility] Comment on above: Performed By: #### S CAN CBC, LDH, CMP #### [facility] [address] Creatinine [Mass/volume] in Serum or PlasmaOrdered By: Jose Solares on 11-12-2024 Creatinine [Mass/Vol] Creatinine [Mass/v olume] in Serum or Plasma 0.70-1.30 [facility] Eosinophils Auto (Bld) [#/Vo l]Ordered By: Jose Solares on 11-12-2024 Eosinophils (Bld) [#/Vol] Automated eosinophil count 0.0-0.45 [facility] Eosinophils/100 WBC Auto (Bl d)Ordered By: Jose Solares on 11-12-2024 Eosinophils/100 WBC (Bld) Automated eosinophil % . [facility] Erythrocyte distribution wid th Auto (RBC) [Ratio]Ordered By: Jose Solares on 11-12-2024 Erythrocyte distribution width (RBC) [Ratio] Erythrocyte distribution width [Ratio] by Automated count 12.0-14.8 [facility] Erythrocyte morphology findi ng [Identifier] in BloodOrdered By: Jose Solares on 11-12-2024 RBC morphology finding Nom (Bld) RBC morphology Normal [facility] Globulin Calc (S) [Mass/Vol] Ordered By: Jose Solares on 11-12-2024 Globulin (S) [Mass/Vol] Serum globulin measurement by calculation (mass/volume) [facility] Glucose [Mass/volume] in Ser um or PlasmaOrdered By: Jose Solares on 11-12-2024 Glucose [Mass/Vol] Glucose [Mass/volume ] in Serum or Plasma 70-100 [facility] Comment on above: ADA recommended refe rence rangeRandom Glucose Reference Range is dependent on time and content of last meal. Glucose of more than 200 mg/dL in a nonstressed, ambulatory subject supports the diagnosis of Diabetes Mellitus. Hematocrit Auto (Bld) [Volum e fraction]Ordered By: Jose Solares on 11-12-2024 Hematocrit (Bld) [Volume fraction] Hematocrit [Volume Fraction] of Blood by Automated count 38.8-50.0 [facility] Hemoglobin [Mass/volume] in BloodOrdered By: Jose Solares on 11-12-2024 Hemoglobin (Bld) [Mass/Vol] Hemoglobin [Mass/volume] in Blood 13.0-17.0 [facility] LDH Lactate Dehydrogenaseon 11-12-2024 LDH Lactate Dehydrogenase 242 U/L Normal 140-271 The Count Includes [facility] Comment on above: Result Comment: PERF ORMED BY: [place] [address] PATHOLOGIST NUCLEAR MEDICINE MEDICAL DIRECTOR SUSAN FREGOSO M.D. Performed By: #### S CAN CBC, LDH, CMP #### [address] Lactate dehydrogenase [Enzym atic activity/volume] in Serum or Plasma by Lactate to pyOrdered By: Jose Solares on 11-12-2024 LDH Lactate to pyruvate reaction [Catalytic activity/Vol] Lactate dehydrogenase [Enzymatic activity/volume] in Serum or Plasma by Lactate to py 140-271 [facility] Leukocytes [#/volume] correc christophe for nucleated erythrocytes in Blood by Automated counOrdered By: Jose Solares on 11-12-2024 WBC corrected for nucl RBC Auto (Bld) [#/Vol] Leukocytes [#/volume] corrected for nucleated erythrocytes in Blood by Automated coun High 4.1-10.5 [facility] Lymphocytes Auto (Bld) [#/Vo l]Ordered By: Jose Solares on 11-12-2024 Lymphocytes (Bld) [#/Vol] Lymphocytes [#/volume] in Blood by Automated count High 1.00-4.8 [facility] Lymphocytes/100 WBC Auto (Bl d)Ordered By: Jose Solares on 11-12-2024 Lymphocytes/100 WBC (Bld) Lymphocytes/100 leukocytes in Blood by Automated count . [facility] MCH Auto (RBC) [Entitic mass ]Ordered By: Jose Solares on 11-12-2024 MCH (RBC) [Entitic mass] MCH [Entitic mass] by Automated count 27.5-35.2 [facility] MCHC Auto (RBC) [Mass/Vol]Or dered By: Jose Solares on 11-12-2024 MCHC (RBC) [Mass/Vol] MCHC [Mass/volume] by Automated count 32.5-35.6 [facility] MCV Auto (RBC) [Entitic vol] Ordered By: Jose Solares on 11-12-2024 MCV (RBC) [Entitic vol] MCV [Entitic volume] by Automated count 83.5-101 [facility] Monocytes Auto (Bld) [#/Vol] Ordered By: Jose Solares on 11-12-2024 Monocytes (Bld) [#/Vol] Automated blood monocyte count 0.0-0.8 [facility] Monocytes/100 WBC Auto (Bld) Ordered By: Jose Solares on 11-12-2024 Monocytes/100 WBC (Bld) Automated monocyte % . [facility] Neutrophils Auto (Bld) [#/Vo l]Ordered By: Jose Solares on 11-12-2024 Neutrophils (Bld) [#/Vol] Neutrophils [#/volume] in Blood by Automated count 1.8-7.7 [facility] Neutrophils/100 WBC Auto (Bl d)Ordered By: Jose Solares on 11-12-2024 Neutrophils/100 WBC (Bld) Automated neutrophil % . [facility] No Panel InformationOrdered By: Jose Solares on 11-12-2024 Estimated GFR (CKD-EPI) > 60.0 mL/Min [facility] Creatinine Clearance (Chem 97.39 [facility] Nucleated erythrocytes [Pres ence] in Blood by Automated countOrdered By: Jose Solares on 11-12-2024 Nucleated RBC Auto Ql (Bld) Nucleated erythrocytes [Presence] in Blood by Automated count 0-0.5 [facility] Platelet adequacy [Presence] in Blood by Light microscopyOrdered By: Jose Solares on 11-12-2024 Platelets LM Ql (Bld) Platelet adequacy [Presence] in Blood by Light microscopy Normal [facility] Platelet mean volume Auto (B ld) [Entitic vol]Ordered By: Jose Solares on 11-12-2024 Platelet mean volume (Bld) [Entitic vol] Platelet mean volume [Entitic volume] in Blood by Automated count 6.6-10.1 [facility] Platelet morphology finding [Identifier] in BloodOrdered By: Jose Solares on 11-12-2024 Platelet morphology finding Nom (Bld) Platelet morphology finding [Identifier] in Blood Normal [facility] Platelets Auto (Bld) [#/Vol] Ordered By: Jose Sujtaha on 11-12-2024 Platelets (Bld) [#/Vol] Platelets [#/volume] in Blood by Automated count Low 150-450 [facility] Potassium [Moles/volume] in Serum or PlasmaOrdered By: Jose Sujatha on 11-12-2024 Potassium [Moles/Vol] Potassium [Moles/v olume] in Serum or Plasma 3.5-5.1 [facility] Protein [Mass/volume] in Ser um or PlasmaOrdered By: Jose Sujatha on 11-12-2024 Protein [Mass/Vol] Protein [Mass/volume ] in Serum or Plasma Low 6.4-8.9 [facility] RBC Auto (Bld) [#/Vol]Ordere d By: Jose Sujatha on 11-12-2024 RBC (Bld) [#/Vol] Erythrocytes [#/volu me] in Blood by Automated count 3.90-5.60 [facility] Scan and CBCon 11-12-2024 Basophils (Bld) [#/Vol] 0.1 10*3/uL Normal 0.0-0.2 The Count Includes [facility] Comment on above: Performed By: #### S CAN CBC, LDH, CMP #### [facility] [address] [place] [address] [place] Basophils/100 WBC (Bld) 0.4 % Normal . The Count Includes [facility] Comment on above: Performed By: #### S CAN CBC, LDH, CMP #### [facility] [address] [place] [address] [place] Eosinophils (Bld) [#/Vol] 0.2 10*3/uL Normal 0.0-0.45 The Count Includes [facility] Comment on above: Performed By: #### S CAN CBC, LDH, CMP #### [facility] [address] [place] [address] [place] Eosinophils/100 WBC (Bld) 1.0 % Normal . The Count Includes [facility] Comment on above: Performed By: #### S CAN CBC, LDH, CMP #### [address] Erythrocyte distribution width (RBC) [Ratio] 12.9 % Normal 12.0-14.8 The Count Includes [facility] Comment on above: Performed By: #### S CAN CBC, LDH, CMP #### [address] Hematocrit (Bld) [Volume fraction] 41.8 % Normal 38.8-50.0 The Count Includes [facility] Comment on above: Performed By: #### S CAN CBC, LDH, CMP #### [address] Hemoglobin (Bld) [Mass/Vol] 14.7 g/dL Normal 13.0-17.0 The Count Includes [facility] Comment on above: Performed By: #### S CAN CBC, LDH, CMP #### [address] Lymphocytes (Bld) [#/Vol] 13.2 10*3/uL High 1.00-4.8 The Count Includes [facility] Comment on above: Performed By: #### S CAN CBC, LDH, CMP #### [address] Lymphocytes/100 WBC (Bld) 75.9 % Normal . The Count Includes [facility] Comment on above: Performed By: #### S CAN CBC, LDH, CMP #### [address] MCH (RBC) [Entitic mass] 32.2 pg Normal 27.5-35.2 The Count Includes [facility] Comment on above: Performed By: #### S CAN CBC, LDH, CMP #### [address] MCV (RBC) [Entitic vol] 91.7 fL Normal 83.5-101 The Count Includes [facility] Comment on above: Performed By: #### S CAN CBC, LDH, CMP #### [address] Mean Corpuscular HGB Conc 35.1 g/dL Normal 32.5-35.6 The Count Includes [facility] Comment on above: Performed By: #### S CAN CBC, LDH, CMP #### [address] Monocytes (Bld) [#/Vol] 0.4 10*3/uL Normal 0.0-0.8 The Count Includes [facility] Comment on above: Performed By: #### S CAN CBC, LDH, CMP #### [address] Monocytes/100 WBC (Bld) 2.1 % Normal . The Count Includes [facility] Comment on above: Performed By: #### S CAN CBC, LDH, CMP #### [address] Neutrophils (Bld) [#/Vol] 3.6 10*3/uL Normal 1.8-7.7 The Count Includes [facility] Comment on above: Performed By: #### S CAN CBC, LDH, CMP #### [address] Neutrophils/100 WBC (Bld) 20.6 % Normal . The Count Includes [facility] Comment on above: Performed By: #### S CAN CBC, LDH, CMP #### [address] NRBC% 0.2 /100{WBC} Normal 0-0.5 The Count Includes [facility] Comment on above: Performed By: #### S CAN CBC, LDH, CMP #### [address] Platelet Estimate Decreased Normal Normal The Count Includes [facility] Comment on above: Performed By: #### S CAN CBC, LDH, CMP #### [address] Platelet mean volume (Bld) [Entitic vol] 7.9 fL Normal 6.6-10.1 The Count Includes [facility] Comment on above: Performed By: #### S CAN CBC, LDH, CMP #### [address] Platelet Morphology Normal Normal Normal The Count Includes [facility] Comment on above: Result Comment: PERF ORMED BY: [address] [place] [address] PATHOLOGIST NUCLEAR MEDICINE MEDICAL DIRECTOR SUSAN FREGOSO M.D. Performed By: #### S CAN CBC, LDH, CMP #### [address] Platelets (Bld) [#/Vol] 136 10*3/uL Low 150-450 The Count Includes [facility] Comment on above: Performed By: #### S CAN CBC, LDH, CMP #### [address] RBC (Bld) [#/Vol] 4.56 10*6/uL Normal 3.90-5.60 The Count Includes [facility] Comment on above: Performed By: #### S CAN CBC, LDH, CMP #### [address] RBC morphology finding Nom (Bld) Normal Normal Normal The Count Includes [facility] Comment on above: Performed By: #### S CAN CBC, LDH, CMP #### [address] WBC (Bld) [#/Vol] 17.4 10*3/uL High 4.1-10.5 The Count Includes [facility] Comment on above: Performed By: #### S CAN CBC, LDH, CMP #### [address] Serum or plasma albumin/glob ulin mass ratioOrdered By: Jose Solares on 11-12-2024 Albumin/Globulin [Mass ratio] Serum or plasma albumin/globulin mass ratio [facility] Serum or plasma anion gap de terminationOrdered By: Jose Solares on 11-12-2024 Anion gap [Moles/Vol] Serum or plasma an ion gap determination 6.0-15.0 [facility] Sodium [Moles/volume] in Ser um or PlasmaOrdered By: Jose Solares on 11-12-2024 Sodium [Moles/Vol] Sodium [Moles/volume ] in Serum or Plasma 136-145 [facility] Urea nitrogen [Mass/volume] in Serum or PlasmaOrdered By: Jose Solares on 11-12-2024 Urea nitrogen [Mass/Vol] Urea nitrogen [Mass/volume] in Serum or Plasma 03-18 [facility] WBC Auto (Bld) [#/Vol]Marye d By: Jose Solares on 11-12-2024 WBC (Bld) [#/Vol] Leukocytes [#/volume ] in Blood by Automated count High 4.1-10.5 [facility] XR Hand - left [facility] Result: Three views of the left hand(s), PA/lateral/oblique, taken today and saved to the permanent medical record. Fracture distal phalanx middle finger well healed with advanced DIP joint arthritis. [facility] [address] XR Knee - right 3 [facility] Result: Three views, bilateral PA weight-bearing, sunrise, lateral of the right knee(s) taken today and saved to the permanent medical record are reviewed. Mild medial compartment joint space narrowing. No acute osseous abnormalities. [facility] No Panel Informationon 09-30 Aracelyolivia De León, KARMEN T 10/02/2024 9:51 PM L Inj/Asp: R knee on 09/30/2024 4:29 PM Indications: pain Details: 25 G needle, lateral approach Medications: 1.5 mg betamethasone acetate-betamethasone sodium phosphate 6 (3-3) MG/ML Consent was given by the patient. [facility] [address] XR Hand - left 3 [facility] Study observation (narrative) [facility] [address] XR Knee - right 3 [facility] Study observation (narrative) [facility] CNOVon 09-21-2024 CNOV Office Visit (CARDAV ) -- DARIUS VALERA ([id number]) 1960 M Date Time Provider Department 09/21/24 4:30 PM TONY ARMSTRONG During your visit today, we recorded the following information about you: Blood pressure Weight Height 142/82 93 kg 1.829 m Tony Armstrong PA-C 09/21/2024 5:03 PM Signed [facility] [place] Sissy Zepeda Department of Cardiovascular Medicine SECTION [...] rare (<1.0%). Isolated VEs were occasional (1.4%, [id number]), VE Couplets were rare (<1.0%, 56), and [...] months CONTACT INFORMATION: Tony Armstrong PA-C Cardiology [id number] [facility] [address] Dept: [phone] Dept Tony Armstrong PA-C 09/21/2024 4:57 PM Signed Please schedule appt with Dr. Tuttle in 6 months Referring Provider: ITA TUTTLE [[id number]] Allergies As of Date: 09/21/2024 (No Known Allergies) Date Reviewed: 09/21/2024 Reviewed by: Donte Iraheta II, MAX - Fully Assessed Reason for Visit: Follow Up [171] Primary V (more content not included)... Normal [facility] MR HAND LEFT WO IV CONTRASTo n [...] (Bld)on 07-29-2024 Basophils (Bld) [#/Vol] 0.1 10*3/uL [facility] Basophils/100 WBC (Bld) 0 % Not Estab. [facility] Eosinophils (Bld) [#/Vol] 0.2 10*3/uL [facility] Eosinophils/100 WBC (Bld) 1 % Not Estab. [facility] Erythrocyte distribution width (RBC) [Ratio] 12.7 % 11.6 - 15.4 % [facility] Hematocrit (Bld) [Volume fraction] 44.5 % 37.5 - 51.0 % [facility] Hemoglobin (Bld) [Mass/Vol] 15.1 g/dL 13.0 - 17.7 g/dL [facility] Immature granulocytes (Bld) [#/Vol] 0 10*3/uL [facility] Immature granulocytes/100 WBC (Bld) 0 % Not Estab. [facility] Lymphocytes (Bld) [#/Vol] 12.7 10*3/uL High [facility] Lymphocytes/100 WBC (Bld) 70 % Not Estab. [facility] MCH (RBC) [Entitic mass] 31.1 pg 26.6 - 33.0 pg [facility] MCHC (RBC) [Mass/Vol] 33.9 g/dL 31.5 - 35.7 g/dL [facility] MCV (RBC) [Entitic vol] 92 fL 79 - 97 fL [facility] Monocytes (Bld) [#/Vol] 0.6 10*3/uL [facility] Monocytes/100 WBC (Bld) 4 % Not Estab. [facility] Neutrophils (Bld) [#/Vol] 4.6 10*3/uL [facility] Neutrophils/100 WBC (Bld) 25 % Not Estab. [facility] Platelets (Bld) [#/Vol] 119 10*3/uL Low [facility] RBC (Bld) [#/Vol] 4.85 10*6/uL [facility] WBC (Bld) [#/Vol] 18.2 10*3/uL High [facility] Comprehensive metabolic pane [facility] 07-29-2024 Albumin [Mass/Vol] 4.5 g/dL 3.9 - 4.9 g/dL [facility] ALP [Catalytic activity/Vol] 102 U/L [facility] ALT [Catalytic activity/Vol] 33 U/L [facility] AST [Catalytic activity/Vol] 33 U/L [facility] Bilirubin [Mass/Vol] 0.6 mg/dL 0.0 - 1 .2 mg/dL [facility] Calcium [Mass/Vol] 9.3 mg/dL 8.6 - 10. 2 mg/dL [facility] Chloride [Moles/Vol] 101 mmol/L 96 - 10 6 mmol/L [facility] CO2 [Moles/Vol] 27 mmol/L 20 - 29 mmol/L [facility] Creatinine [Mass/Vol] 0.96 mg/dL 0.76 - 1.27 mg/dL [facility] GFR/1.73 sq M.predicted among non-blacks MDRD (S/P/Bld) [Vol rate/Area] 88 mL/min/{1.73_m2} 59 - PINF mL/min/1.7 3 [facility] Globulin (S) [Mass/Vol] 1.9 g/dL 1.5 - 4.5 g/dL [facility] Glucose [Mass/Vol] 100 mg/dL High 70 - 99 mg/dL [facility] Potassium [Moles/Vol] 4 mmol/L 3.5 - 5.2 mmol/L [facility] Protein [Mass/Vol] 6.4 g/dL 6.0 - 8.5 g/dL [facility] Sodium [Moles/Vol] 139 mmol/L 134 - 144 mmol/L [facility] Urea nitrogen [Mass/Vol] 20 mg/dL 8 - 27 mg/dL [facility] Urea nitrogen/Creatinine [Mass ratio] 21 mg/mg 10 - 24 [facility] Lactate dehydrogenaseon LDH Lactate to pyruvate reaction [Catalytic activity/Vol] 261 High [facility] No Panel Informationon 07-29 Interpretation and review of laboratory results Abnormal [facility] Performed at: 01 - [address] [place] [id number] [employer] Coordinator: Chad Mccall PhD, Phone: [phone] [facility] Specimen Status Reporton Clindamycin Disk diffusion (KB) [Susc] Comment [facility] Comment on above: Orlando Lock CMP14 D efault [place] Lock [facility]14 Default A hand-written panel/profile was received from your office. In accordance with the [facility] Ambiguous Test Code Policy dated February 2003, we have completed your order by using the closest currently or formerly recognized AMA panel. We have assigned Comprehensive Metabolic Panel (14), Test Code #144071 to this request. If this is not the testing you wished to receive on this specimen, please contact the [facility] Client Inquiry/Technical Services Department to clarify the [...] 3rd digiton XR finger LT 3rd digit [facility] Main [place] [address] [place] [id number] XRay Report Signed Patient: Darius Valera MR#: [id number] 10 : 1960 Acct:[id number] Age/Sex: 63 / M ADM Date: 07/24/24 Loc: XDUCLY Room: Type: [facility] Attending Dr: Hannah Queen APRN Copies to: [...] Donte Quevedo M.D.07/24/2024 11:26 AM Dictation Location: [place] [address] Transcribed By: [facility] 07/24/24 1126 Dictated By: Donte Quevedo II, MD 07/24/24 112 Signed By: 07/24/24 1126 Normal The Count Includes [facility] VITAMIN D 25 HYDROXY,TOT+D2+ D3on 05-03-2024 LAB REINA VITAMIN D 25 OH 53 ng/mL . [facility] Comment on above: Reference Range: All Ages: Target levels 30 - 100 VITAMIN D-2 <1.0 . [facility] Comment on above: This test was develo ped and its performance characteristics determined by [facility]. It has not been cleared or approved by the Food and Drug Administration. VITAMIN D-3 52 ng/mL . [facility] Comment on above: This test was develo ped and its performance characteristics determined by [facility]. It has not been cleared or approved by the Food and Drug Administration. Performed at: [facility] [address] [place] [id number] [employer] Coordinator: Johnnie Jansen MD, Phone: [phone] [facility] Ferritin [Mass/volume] in Se rum or PlasmaOrdered By: Jose Solares on 04-23-2024 Ferritin [Mass/Vol] Ferritin [Mass/volum e] in Serum or Plasma 23.9-336.2 [facility] Ferritin [Mass/Vol] 63.9 ng/mL 23.9-336.2 [facility] Folate [Mass/volume] in Seru m or PlasmaOrdered By: Jose Solares on 04-23-2024 Folate [Mass/Vol] Folate [Mass/volume] in Serum or Plasma >5.9 [facility] Comment on above: Folate reference ran ge: >5.9 ng/mlThe WHO technical consultation on folate and vitamin [id number] has determined that folate concentrations lessthan 4 ng/ml are considered deficient. Folate [Mass/Vol] 16.9 ng/mL >5.9 [facility] Comment on above: Folate reference ran ge: >5.9 ng/mlThe WHO technical consultation on folate and vitamin [id number] has determined that folate concentrations lessthan 4 ng/ml are considered deficient. Iron [Mass/volume] in Serum or PlasmaOrdered By: Jose Solares on 04-23-2024 Iron [Mass/Vol] Iron [Mass/volume] i n Serum or Plasma [facility] Iron [Mass/Vol] 83 ug/dL [facility] Serum or plasma 25-hydroxyca lciferol measurement (mass/volume)Ordered By: Jose Solares on 04-23-2024 25-hydroxyvitamin D2 [Mass/Vol] Serum or plasma 25-hydroxycalciferol measurement (mass/volume) . [facility] Comment on above: This test was develo ped and its performance characteristicsdetermined by [facility]. It has not been cleared or approvedby the Food and Drug Administration. 25-hydroxyvitamin D2 [Mass/Vol] <1.0 ng/mL . [facility] Comment on above: This test was develo ped and its performance characteristicsdetermined by [facility]. It has not been cleared or approvedby the Food and Drug Administration. Serum or plasma 25-hydroxyvi tamin D measurement (mass/volume)Ordered By: Jose Solares on 04-23-2024 25-hydroxyvitamin D [Mass/Vol] Serum or plasma 25-hydroxyvitamin D measurement (mass/volume) . [facility] Comment on above: Reference Range:All Ages: Target levels 30 - 100 25-hydroxyvitamin D [Mass/Vol] 53 ng/mL . [facility] Comment on above: Reference Range:All Ages: Target levels 30 - 100 Serum or plasma calcidiol me asurement (mass/volume)Ordered By: Jose Solares on 04-23-2024 25-hydroxyvitamin D3 [Mass/Vol] Serum or plasma calcidiol measurement (mass/volume) . [facility] Comment on above: This test was develo ped and its performance characteristicsdetermined by [facility]. It has not been cleared or approvedby the Food and Drug Administration.Performed at: [facility] [id number] [place], [place] [id number] Director: Johnnie Jansen MD, Phone: [phone] 25-hydroxyvitamin D3 [Mass/Vol] 52 ng/mL . [facility] Comment on above: This test was develo ped and its performance characteristicsdetermined by [facility]. It has not been cleared or approvedby the Food and Drug Administration.Performed at: [facility] [id number] [place], [place] [id number] Director: Johnnie Jansen MD, Phone: [phone] Serum or plasma iron binding capacity measurement (mass/volume)Ordered By: Jose Solares on 04-23-2024 Iron binding capacity [Mass/Vol] Iron binding capacity [Mass/volume] in Serum or Plasma 255-450 [facility] Iron binding capacity [Mass/Vol] 304 ug/dL 255-450 [facility] Serum or plasma iron saturat ion measurement (mass fraction)Ordered By: Jose Solares on 04-23-2024 Iron saturation [Mass fraction] Iron saturation [Mass Fraction] in Serum or Plasma 20-50 [facility] Iron saturation [Mass fraction] 27.3 % 20-50 [facility] Transferrin [Mass/volume] in Serum or PlasmaOrdered By: Jose Solares on 04-23-2024 Transferrin [Mass/Vol] Transferrin [Mass /volume] in Serum or Plasma 203-362 [facility] Transferrin [Mass/Vol] 217 mg/dL 203-362 [facility] Vitamin B12 ser/plasOrdered By: oJse Solares on 04-23-2024 Cobalamin (Vitamin B12) [Mass/Vol] Vitamin B12 ser/plas 180-914 [facility] Cobalamin (Vitamin B12) [Mass/Vol] 554 pg/mL 180-914 [facility] Alanine aminotransferase [En zymatic activity/volume] in Serum or PlasmaOrdered By: Christian Carlos on 04-20-2024 ALT [Catalytic activity/Vol] 30 U/L 7-52 [facility] Albumin [Mass/volume] in Ser um or Plasma by Bromocresol green (BCG) dye binding methoOrdered By: Christian Carlos on 04-20-2024 Albumin BCG dye [Mass/Vol] 4.1 g/dL 3.5-5.7 [facility] Alkaline phosphatase [Enzyma tic activity/volume] in Serum or PlasmaOrdered By: Christian Carlos on 04-20-2024 ALP [Catalytic activity/Vol] 79 U/L 34-104 [facility] Anisocytosis LM Ql (Bld)Orde red By: Christian Carlos on 04-20-2024 Anisocytosis Ql (Bld) Slight [facility]ir [facility] Anisocytosis Ql (Bld) Anisocytosis [Pres ence] in Blood by Light microscopy [facility] Aspartate aminotransferase [ Enzymatic activity/volume] in Serum or PlasmaOrdered By: Christian Carlos on 04-20-2024 AST [Catalytic activity/Vol] 29 U/L 13-39 [facility] Basophils Auto (Bld) [#/Vol] Ordered By: Christian Carlos on 04-20-2024 Basophils (Bld) [#/Vol] 0.0 10*3/uL 0.0-0.2 [facility] Basophils/100 WBC Auto (Bld) Ordered By: Christian Carlos on 04-20-2024 Basophils/100 WBC (Bld) 0.3 % . [facility] Bilirubin.total [Mass/volume ] in Serum or PlasmaOrdered By: Christian Carlos on 04-20-2024 Bilirubin [Mass/Vol] 1.0 mg/dL 0.3-1.0 [facility] Calcium [Mass/volume] in Ser um or PlasmaOrdered By: Christian Carlos on 04-20-2024 Calcium [Mass/Vol] 8.8 mg/dL 8.6-10.3 [facility] Carbon dioxide, total [Moles /volume] in Serum or PlasmaOrdered By: Christian Carlos on 04-20-2024 CO2 [Moles/Vol] 31.5 mmol/L High 21.0-31.0 [facility] Chloride [Moles/volume] in S hesham or PlasmaOrdered By: Christian Carlos on 04-20-2024 Chloride [Moles/Vol] 105 mmol/L 98-107 [facility] Comprehensive metabolic pane aline 04-20-2024 Albumin [Mass/Vol] 4.1 g/dL 3.5 - 5.7 g/dL [facility] Albumin/Globulin [Mass ratio] 2.2 {ratio} [facility] ALP [Catalytic activity/Vol] 79 U/L 34 - 104 U/L [facility] ALT [Catalytic activity/Vol] 30 U/L 7 - 52 U/L [facility] Anion gap [Moles/Vol] 9.3 mmol/L 6.0 - 15.0 [facility] AST [Catalytic activity/Vol] 29 U/L 13 - 39 U/L [facility] Bilirubin [Mass/Vol] 1.0 mg/dL 0.3 - 1 .0 mg/dL [facility] Calcium [Mass/Vol] 8.8 mg/dL 8.6 - 10. 3 mg/dL [facility] Chloride [Moles/Vol] 105 mmol/L 98 - 10 7 mmol/L [facility] CO2 [Moles/Vol] 31.5 mmol/L High 21.0 - 31.0 mmol/L [facility] Creatinine (U) [Mass/Vol] 0.90 mg/dL 0.70 - 1.30 mg/dL [facility] CREATININE CLR CALC PHARMACY 91.01 [facility] GFR/1.73 sq M.predicted MDRD (S/P/Bld) [Vol rate/Area] mL/min/{1.73_m2} [facility] Globulin (S) [Mass/Vol] 1.9 g/dL [facility] Glucose [Mass/Vol] 95 mg/dL 70 - 100 mg/dL [facility] Comment on above: Random Glucose Refer ence Range is dependent on time and content of last meal. Glucose of more than 200 mg/dL in a nonstressed, ambulatory subject supports the diagnosis of Diabetes Mellitus. ADA recommended reference range Interpretation and review of laboratory results Abnormal [facility] Potassium [Moles/Vol] 3.8 mmol/L 3.5 - 5.1 mmol/L [facility] Protein [Mass/Vol] 6.0 g/dL Low 6.4 - 8.9 g/dL [facility] Sodium [Moles/Vol] 142 mmol/L 136 - 145 mmol/L [facility] Urea nitrogen [Mass/Vol] 20 mg/dL 7 - 25 mg/dL [facility] Creatinine [Mass/volume] in Serum or PlasmaOrdered By: Christian Carlos on 04-20-2024 Creatinine [Mass/Vol] 0.90 mg/dL 0.70-1.30 [facility] Eosinophils Auto (Bld) [#/Vo l]Ordered By: Christian Carlos on 04-20-2024 Eosinophils (Bld) [#/Vol] 0.2 10*3/uL 0.0-0.45 [facility] Eosinophils/100 WBC Auto (Bl d)Ordered By: Christian Carlos on 04-20-2024 Eosinophils/100 WBC (Bld) 1.4 % . [facility] Erythrocyte distribution wid th Auto (RBC) [Ratio]Ordered By: Christian Carlos on 04-20-2024 Erythrocyte distribution width (RBC) [Ratio] 13.9 % 12.0-14.8 [facility] Globulin Calc (S) [Mass/Vol] Ordered By: Christian Carlos on 04-20-2024 Globulin (S) [Mass/Vol] 1.9 g/dL [facility] Glucose [Mass/volume] in Ser um or PlasmaOrdered By: Christian Carlos on 04-20-2024 Glucose [Mass/Vol] 95 mg/dL 70-100 [facility] Comment on above: ADA recommended refe rence rangeRandom Glucose Reference Range is dependent on time and content of last meal. Glucose of more than 200 mg/dL in a nonstressed, ambulatory subject supports the diagnosis of Diabetes Mellitus. Hematocrit Auto (Bld) [Volum e fraction]Ordered By: Christian Carlos on 04-20-2024 Hematocrit (Bld) [Volume fraction] 43.3 % 38.8-50.0 [facility] Hemoglobin [Mass/volume] in BloodOrdered By: Christian Carlos on 04-20-2024 Hemoglobin (Bld) [Mass/Vol] 14.8 g/dL 13.0-17.0 [facility] LDH Lactate to pyruvate reac tion [Catalytic activity/Vol]on 04-20-2024 LDH LACTATE DEHYDROGENASE 212 U/L 140 - 271 U/L [facility] Lactate dehydrogenase [Enzym atic activity/volume] in Serum or Plasma by Lactate to pyOrdered By: Christian Carlos on 04-20-2024 LDH Lactate to pyruvate reaction [Catalytic activity/Vol] 212 U/L 140-271 [facility] Leukocytes [#/volume] correc christophe for nucleated erythrocytes in Blood by Automated counOrdered By: Christian Carlos on 04-20-2024 WBC corrected for nucl RBC Auto (Bld) [#/Vol] 13.3 10*3/uL High 4.1-10.5 [facility] Lymphocytes Auto (Bld) [#/Vo l]Ordered By: Christian Carlos on 04-20-2024 Lymphocytes (Bld) [#/Vol] 9.9 10*3/uL High 1.00-4.8 [facility] Lymphocytes/100 WBC Auto (Bl d)Ordered By: Christian Carlos on 04-20-2024 Lymphocytes/100 WBC (Bld) 74.8 % . [facility] MCH Auto (RBC) [Entitic mass ]Ordered By: Christian Carlos on 04-20-2024 MCH (RBC) [Entitic mass] 31.2 pg 27.5-35.2 [facility] MCHC Auto (RBC) [Mass/Vol]Or dered By: Christian Carlos on 04-20-2024 MCHC (RBC) [Mass/Vol] 34.2 g/dL 32.5-35.6 [facility] MCV Auto (RBC) [Entitic vol] Ordered By: Christian Carlos on 04-20-2024 MCV (RBC) [Entitic vol] 91.4 fL 83.5-101 [facility] Microcytes LM Ql (Bld)Ordere d By: Christian Carlos on 04-20-2024 Microcytes Ql (Bld) Slight [facility] Microcytes Ql (Bld) Microcytes [Presence ] in Blood by Light microscopy [facility] Monocytes Auto (Bld) [#/Vol] Ordered By: Christian Carlos on 04-20-2024 Monocytes (Bld) [#/Vol] 0.5 10*3/uL 0.0-0.8 [facility] Monocytes/100 WBC Auto (Bld) Ordered By: Christian Carlos on 04-20-2024 Monocytes/100 WBC (Bld) 3.7 % . [facility] Neutrophils Auto (Bld) [#/Vo l]Ordered By: Christian Carlos on 04-20-2024 Neutrophils (Bld) [#/Vol] 2.6 10*3/uL 1.8-7.7 [facility] Neutrophils/100 WBC Auto (Bl d)Ordered By: Christian Carlos on 04-20-2024 Neutrophils/100 WBC (Bld) 19.8 % . [facility] [facility] No Panel Informationon 04-20 [facility] No Panel InformationOrdered By: Christian Carlos on 04-20-2024 Estimated GFR (CKD-EPI) > 60.0 mL/Min [facility] Creatinine Clearance (Chem 91.01 [facility] Nucleated erythrocytes [Pres ence] in Blood by Automated countOrdered By: Christian Carlos on 04-20-2024 Nucleated RBC Auto Ql (Bld) 0.3 /100{WBC} 0-0.5 [facility] Platelet adequacy [Presence] in Blood by Light microscopyOrdered By: Christian Carlos on 04-20-2024 Platelets LM Ql (Bld) Decreased Normal [facility] Platelet mean volume Auto (B ld) [Entitic vol]Ordered By: Christian Carlos on 04-20-2024 Platelet mean volume (Bld) [Entitic vol] 8.5 fL 6.6-10.1 [facility] Platelet morphology finding [Identifier] in BloodOrdered By: Christian Carlos on 04-20-2024 Platelet morphology finding Nom (Bld) Normal Normal [facility] Platelets Auto (Bld) [#/Vol] Ordered By: Christian Carlos on 04-20-2024 Platelets (Bld) [#/Vol] 108 10*3/uL Low 150-450 [facility] Potassium [Moles/volume] in Serum or PlasmaOrdered By: Christian Carlos on 04-20-2024 Potassium [Moles/Vol] 3.8 mmol/L 3.5-5.1 [facility] Protein [Mass/volume] in Ser um or PlasmaOrdered By: Christian Carlos on 04-20-2024 Protein [Mass/Vol] 6.0 g/dL Low 6.4-8.9 [facility] RBC Auto (Bld) [#/Vol]Ordere d By: Christian Carlos on 04-20-2024 RBC (Bld) [#/Vol] 4.74 10*6/uL 3.90-5.60 [facility] RBC morphologyOrdered By: Maik Carlos on 04-20-2024 RBC morphology finding Nom (Bld) N/A [facility] Serum or plasma albumin/glob ulin mass ratioOrdered By: Christian Carlos on 04-20-2024 Albumin/Globulin [Mass ratio] 2.2 {ratio} [facility] Serum or plasma anion gap de terminationOrdered By: Christian Carlos on 04-20-2024 Anion gap [Moles/Vol] 9.3 mmol/L 6.0-15.0 [facility] Sodium [Moles/volume] in Ser um or PlasmaOrdered By: Christian Carlos on 04-20-2024 Sodium [Moles/Vol] 142 mmol/L 136-145 [facility] Urea nitrogen [Mass/volume] in Serum or PlasmaOrdered By: Christian Carlos on 04-20-2024 Urea nitrogen [Mass/Vol] 20 mg/dL 03-18 [facility] WBC Auto (Bld) [#/Vol]Ordere d By: Christian Carlos on 04-20-2024 WBC (Bld) [#/Vol] 13.3 10*3/uL High 4.1-10.5 [facility] CNOVon 01-30-2024 CNOV Office Visit (CARDAV ) -- DARIUS VALERA ([id number]) 1960 M Date Time Provider Department 01/30/24 3:00 PM ITA TUTTLE During your visit today, we recorded the following information about you: Pulse Blood pressure Weight Height 66/minute 148/80 92.6 kg 1.829 m Ita Tuttle MD 01/30/2024 2:47 PM Signed [facility] [place] Sissy Zepeda Department of Cardiovascular Medicine SECTION OF REGIONAL CARDIOLOGY OUTPATIENT VISIT DATE January 30, 2024 OUTPATIENT VISIT TYPE ESTABLISHED HISTORY OF PRESENT ILLNESS: Darius Vlaera is a (an) 63 year old year old male who is here today for follow-up. He had elevated WBCs and was seen by outside engineer geophysical laboratory and was told might have CLL Last [...] male here today for follow up from [place], [place]. Has h/o AF s/p ablation, HTN, DMITRY, tachycardia induced CMP, and CHF. On Eliquis, Nifedipine XL, Valsartan/HCTZ added on Doxazosin. Doxazocin increased to 2 mg but has been using only 1 mg daily. Continue to have BP spikes above 150s. Sotalol was discontinued. He followed before with a local registrar museum Dr Hooks. Since last visit denies chest [...] deficit. _ (more content not included)... Normal [facility] No Panel InformationOrdered By: Christian Carlos on 01-26-2024 CBC Comment See comment [facility] Comment on above: Slide referred to dorothea thleslie for review Smudge cell detectionOrdered By: Christian Carlos on 01-26-2024 Smudge cells LM Ql (Bld) Moderate [facility] Smudge cells [Presence] in B lood by Light microscopyOrdered By: Christian Carlos on 01-26-2024 Smudge cells LM Ql (Bld) Smudge cell detection [facility] Consultation Noteon 01-16-20 Consultation Note [id number]#1.00TIFF Normal [facility] Comment on above: Other Comment: [facility] CNOVon 10-03-2023 CNOV Office Visit (CARDAV ) -- DARIUS VALERA ([id number]) 1960 M Date Time Provider Department 10/03/23 1:30 PM ITA TUTTLE During your visit today, we recorded the following information about you: Pulse Respiration Blood pressure Weight 59/minute 16/minute 136/76 91.2 kg Height 1.829 m Ita Tuttle MD 10/03/2023 1:43 PM Signed [facility] [place] Sissy Zepeda Department of Cardiovascular Medicine SECTION [...] added on Bystolic. Last OV 07/31/23 Darius Valrea is a (an) 62 year old year [...] male here today for follow up from [place]. Has h/o AF s/p ablation, HTN, DMITRY, tachycardia induced CMP, and CHF. On Eliquis, Nifedipine XL, Valsartan/HCTZ added on Doxazosin. Doxazocin increased to 2 mg but has been using only 1 mg daily. Continue to have BP spikes above 150s. Sotalol was discontinued. He followed before with a local registrar museum Dr Hooks. Since last visit denies chest [...] Date Value (more content not included)... Normal [facility] ECG COMPLETEon 07-31-2023 Atrial Rate 71 BPM [facility] Calculated P [place] 12 degrees [facility] Calculated R [place] -15 degrees [facility] Calculated T [place] 28 degrees [facility] P-R Interval 172 ms [facility] QRS Duration 98 ms [facility] QT Interval 404 ms [facility] QTC Calculation (Bazett) 439 ms [facility] Ventricular Rate 71 BPM [facility] Auth for Release of Medical Recordson 07-10-2023 Auth for Release of Medical Records [id number]#1.00TIFF Normal [facility] Lab Reportson 06-09-2023 Lab Reports [id number]#1.00TIFF [facility] Screenson 06-03-2023 Screens [id number]#1.00TIFF Normal [facility] Ambulatory Visit Summaryon 1 Ambulatory Visit Summary DARIUS VALERA :1960 Visit Date:06/02/2023 Ambulatory Visit Instructions Your Diagnosis Ureteral stone with hydronephrosis Erectile dysfunction Tests Performed Urnls Dip Stick Auto w/o Microscopy POC 15499 Your Care Team Attending Physician - Stevenson LYNCH, Iesha Wen This Is Your Medications List amlodipine aspirin (aspirin 81 mg oral tablet) atenolol (atenolol 100 mg Tab) hydrochlorothiazide-lisino pril (hydrochlorothiazide-lisin opril 12.5 mg-20 mg Tab) omega-3 polyunsaturated fatty acids (Packwood-3) potassium chloride (Klor-Con) Discharge Vitals Heart Rate [...] Every day Unchanged omega-3 polyunsaturated fatty acids ([place]wood-3) Unchanged potassium chloride (Klor-Con) Test Results Urnls Dip Stick Auto w/o Microscopy POC 61825 (06/02/2023) Bilirubin Urine Dipstick - Negative Blood Urine Dipstick - Trace-intact Glucose Urine Dipstick - Negative Ketones Urine Dipstick - Negative Leukocytes Urine Dipstick - Negative Nitrite Urine Dipstick - Negative Protein Urine Dipstick - Negative Specific [facility] Urine Dipstick - 1.015 Urine Appearance Urine [...] apnea Ureteral stone Ureteral stone with hydronephrosis Normal [facility] Patient Educationon 06-02-20 Patient Education Urology Erectile Dysfunction Erectile dysfunction [...] these instructions at home: Medicines ? Take igec-hiu-hncouyi and prescription medicines only as told by [...] include cig (more content not included)... Normal [facility] Urology Office/Clinic Noteon 06-02-2023 Urology Office/Clinic Note Chief Complaint follow up to [facility]/consult HPI Staff 62 year old male seen at [facility] consult for Lt. UVJ stone,hydro,renal colic, [...] by PCP Denies medical issues, hx of [place], stroke or DM2. On ASA 81mg Portions of this record may have been created with voice recognition artificial intelligence software, specifically [employer], [employer] and or [employer]. Substitutions may have occurred due to the inherent limitations of voice recognition and artificial intelligence software. 1. Ureteral stone with hydronephrosis (N13.2: Hydronephrosis with renal and ureteral calculous obstruction) Last stone event 10 years ago, denies surgical intervention. Pt presented to [facility] ER 04/14/23 with uncontrolled left flank [...] intake fro (more content not included)... Normal [facility] Comment on above: Result Comment: Elec tronically Signed By: Iesha Gamino MD\.br\Date and Time Signed: 06/02/23 17:30 EDT\.br\Electronically Co-Signed By: Patience Castellon\.br\Date and Time Co-Signed: 06/02/23 16:04 EDT RAD - Ultrasound Reporton RAD - Ultrasound Report [id number]#1.00CD:127 Normal [facility] Consultation Noteon 05-19-20 Consultation Note [id number]#1.00CD:127 Normal [facility] Insurance Correspondence Off iceon 04-16-2023 Insurance Correspondence Office [id number]#1.00CD:127 Normal [facility] Lab Reportson 04-16-2023 Lab Reports [id number]#1.00CD:127 Normal [facility] Consultation Noteon 04-15-20 Consultation Note [id number]#1.00CD:127 Normal [facility] Operative Reporton Operative Report [id number]#1.00CD:127 Normal [facility] RAD - MISCon 04-14-2023 RAD - MISC [id number]#1.00CD:127 Normal [facility] RAD - Ultrasound Reporton RAD - Ultrasound Report [id number]#1.00CD:127 Normal [facility] RAD - CT Reporton 04-12-2023 RAD - CT Report [id number]#1.00CD:127 Normal [facility] Consultation Noteon 02-19-20 Consultation Note [id number]#1.00CD:127 Normal [facility] MRI ANKLE RT WO CONon 2022 MRI [...] JANAY PANDYA Date: 2023-01-22 07:40 Normal [facility] CBC AUTO DIFFon 12-27-2022 BASO # 0.0 103/ul Normal 0.0-0.1 [facility] Comment on above: Performed By: #### C BC #### [facility] [address] [address] [address] Gautam Van Basophils/100 WBC (Bld) 0.4 % Normal 0.2-2.0 [facility] Comment on above: Performed By: #### C BC #### [facility] [address] [address] [address] Gautam Van EO # 0.1 103/ul Normal 0.0-0.7 [facility] Comment on above: Performed By: #### C BC #### [facility] [address] [address] [address] Gautam Van Eosinophils/100 WBC (Bld) 1.3 % Normal 0.9-7.0 [facility] Comment on above: Performed By: #### C BC #### [facility] [address] [place] [address] Dr. Gautam Van Erythrocyte distribution width (RBC) [Ratio] 12.6 % Normal 11.0-15.0 [facility] Comment on above: Performed By: #### C BC #### [facility] [address] [place] [address] Dr. Gautam Van Hematocrit (Bld) [Volume fraction] 47.0 % Normal 42.0-54.0 [facility] Comment on above: Performed By: #### C BC #### [facility] [address] [place] [address] Dr. Gautam Van Hemoglobin (Bld) [Mass/Vol] 16.1 g/dL Normal 14.0-18.0 [facility] Comment on above: Performed By: #### C BC #### [facility] [address] [place] [address] Dr. Gautam Van IG # 0.02 10e3/ul Normal 0.00-0.03 [facility] Comment on above: Performed By: #### C BC #### [facility] [address] [place] [address] Dr. Gautam Van IG % 0.2 % Normal 0.0-0.5 [facility] Comment on above: Performed By: #### C BC #### [facility] [address] [place] [address] Dr. Gautam Van LYMPH # 7.0 103/ul Critically high 1.2-3.8 [facility] Comment on above: Performed By: #### C BC #### [facility] [address] [place] [address] Dr. Gautam Van Lymphocytes/100 WBC (Bld) 64.7 % Critically high 20.5-60.0 [facility] Comment on above: Performed By: #### C BC #### [facility] [address] [place] [address] Dr. Gautam Van MANUAL DIFF REQ NO Normal [facility] Comment on above: Performed By: #### C BC #### [facility] [address] [place] [address] Dr. Gautam Van MCH (RBC) [Entitic mass] 30.7 pg Normal 25.9-34.0 [facility] Comment on above: Performed By: #### C BC #### [facility] [address] [place] [address] Dr. Gautam Van MCHC (RBC) [Mass/Vol] 34.3 g/dL Normal 29.9-35.2 [facility] Comment on above: Performed By: #### C BC #### [facility] [address] [place] [address] Dr. Gautam Van MCV (RBC) [Entitic vol] 89.7 fL Normal 80.0-94.0 [facility] Comment on above: Performed By: #### C BC #### [facility] [address] [place] [address] Dr. Gautam Van MONO # 0.5 103/ul Normal 0.3-0.8 [facility] Comment on above: Performed By: #### C BC #### [facility] [address] [place] [address] Dr. Gautam Van Monocytes/100 WBC (Bld) 4.6 % Normal 1.7-12.0 [facility] Comment on above: Performed By: #### C BC #### [facility] [address] [place] [address] Dr. Gautam aVn NEUT # 3.1 103/ul Normal 1.4-6.5 [facility] Comment on above: Performed By: #### C BC #### [facility] [address] [place] [address] Dr. Gautam Van Neutrophils/100 WBC (Bld) 28.8 % Critically low 43.0-75.0 [facility] Comment on above: Performed By: #### C BC #### [facility] [address] [place] [address] Dr. Gautam Van Platelet mean volume (Bld) [Entitic vol] 10.6 fL Normal 9.5-13.5 [facility] Comment on above: Performed By: #### C BC #### [facility] [address] [place] [address] Dr. Gautam Van PLT 144 103/ul Critically low 150-450 [facility] Comment on above: Performed By: #### C BC #### [facility] [address] [address] [address] Gautam Van RBC 5.24 106/ul Normal 4.70-6.10 [facility] Comment on above: Performed By: #### C BC #### [facility] [id number] Gautam Van WBC 10.8 103/ul Normal 4.0-11.0 [facility] Comment on above: Performed By: #### C BC #### [facility] [id number] Gautam Van LIPID PROFILEon 12-27-2022 CHOL-HDL RATIO NORM SEE BELOW Normal [facility] Comment on above: Result Comment: 3.3 - 4.4 LOW RISK 4.4 - 7.1 AVERAGE RISK 7.1 - 11.0 MODERATE RISK >11.0 HIGH RISK Performed By: #### L IPID, T4, TSH, CMP ####[facility] [address] [id number] Van Cholesterol [Mass/Vol] 183 mg/dL Normal <=[address] [facility] Comment on above: Performed By: #### L IPID, T4, TSH, CMP ####[facility] [address] [id number] Van Cholesterol in HDL [Mass/Vol] 70 mg/dL Critically high 40-60 [facility] Comment on above: Performed By: #### L IPID, T4, TSH, CMP ####[facility] [address] [id number] Van Cholesterol in LDL [Mass/Vol] 104.2 mg/dL Normal [facility] Comment on above: Performed By: #### L IPID, T4, TSH, CMP ####[facility] [address] [id number] Van Cholesterol.total/Chol esterol in HDL [Mass ratio] 2.6 {ratio} Normal [facility] Comment on above: Performed By: #### L IPID, T4, TSH, CMP ####[facility] [address] [address]DrCarrie Van HDL NORMAL > or = 60 mg/dl - LO W CARDIOVASCULAR RISK <40 mg/dl - HIGH CARDIOVASCULAR RISK Normal [facility] Comment on above: Performed By: #### L IPID, T4, TSH, CMP ####[facility] [address] [address]DrCarrie Van LDL CALC NORMAL SEE BELOW Normal [facility] Comment on above: Result Comment: <100 mg/dl OPTIMAL 100 - 129 mg/dl NEAR OR ABOVE OPTIMAL 130 - 159 mg/dl BORDERLINE HIGH 160 - 189 mg/dl HIGH >190 mg/dl VERY HIGH Performed By: #### L IPID, T4, TSH, CMP ####[facility] [address] [address]DrCarrie Van Triglyceride [Mass/Vol] 44 mg/dL Normal <=150 [facility] Comment on above: Performed By: #### L IPID, T4, TSH, CMP ####[facility] [address] [address]Dr. Gautam Van VLDL CALC 8.8 mg/dL Normal [facility] Comment on above: Performed By: #### L IPID, T4, TSH, CMP ####[facility] [address] [address]Dr. Gautam Van PROF 14(COMP METB)on 023 Albumin [Mass/Vol] 4.0 g/dL Normal 3.4-5.0 [facility] Comment on above: Performed By: #### L IPID, T4, TSH, CMP #### [facility] [address] [address] [address] Gautam Van Albumin/Globulin [Mass ratio] 1.2 {ratio} Normal [facility] Comment on above: Performed By: #### L IPID, T4, TSH, CMP #### [facility] [address] [address] [address] Gautam Van ALP [Catalytic activity/Vol] 104 U/L Normal 46-116 [facility] Comment on above: Performed By: #### L IPID, T4, TSH, CMP #### [facility] [address] [address] [address] Gautam Van ALT [Catalytic activity/Vol] 36 U/L Normal 16-63 [facility] Comment on above: Performed By: #### L IPID, T4, TSH, CMP #### [facility] [address] [address] [address] Gautam Van Anion gap [Moles/Vol] 9.8 mmol/L Normal [facility] Comment on above: Performed By: #### L IPID, T4, TSH, CMP #### [facility] [address] [place] [address] Dr. Gautam Van AST [Catalytic activity/Vol] 22 U/L Normal 15-37 [facility] Comment on above: Performed By: #### L IPID, T4, TSH, CMP #### [facility] [address] [place] [address] Dr. Gautam Van Bilirubin [Mass/Vol] 0.9 mg/dL Normal 0.2-1.0 [facility] Comment on above: Performed By: #### L IPID, T4, TSH, CMP #### [facility] [address] [place] [address] Dr. Gautam Van Calcium [Mass/Vol] 9.1 mg/dL Normal 8.5-10.1 [facility] Comment on above: Performed By: #### L IPID, T4, TSH, CMP #### [facility] [address] [place] [address] Dr. Gautam Van Chloride [Moles/Vol] 103 mmol/L Normal 98-107 [facility] Comment on above: Performed By: #### L IPID, T4, TSH, CMP #### [facility] [address] [place] [address] Dr. Gautam Van CO2 [Moles/Vol] 30.6 mmol/L Normal 21.0-32.0 [facility] Comment on above: Performed By: #### L IPID, T4, TSH, CMP #### [facility] [address] [place] [address] Dr. Gautam Van Creatinine [Mass/Vol] 0.81 mg/dL Normal 0.70-1.30 [facility] Comment on above: Performed By: #### L IPID, T4, TSH, CMP #### [facility] [address] [place] [address] Dr. Gautam Van EGFR-AF KITT[place]IAN >60 Normal >=60 [facility] Comment on above: Performed By: #### L IPID, T4, TSH, CMP #### [facility] [address] [place] [address] Dr. Gautam Van EGFR-NON AF [place]IAN >60 Normal >=60 [facility] Comment on above: Performed By: #### L IPID, T4, TSH, CMP #### [facility] [address] [place] [address] Dr. Gautam Van Globulin (S) [Mass/Vol] 3.3 g/dL Normal [facility] Comment on above: Performed By: #### L IPID, T4, TSH, CMP #### [facility] [address] [place] [address] Dr. Gautam Van Glucose [Mass/Vol] 103 mg/dL Normal 74-106 [facility] Comment on above: Performed By: #### L IPID, T4, TSH, CMP #### [facility] [address] [place] [address] Dr. Gautam Van Potassium [Moles/Vol] 4.4 mmol/L Normal 3.5-5.1 [facility] Comment on above: Performed By: #### L IPID, T4, TSH, CMP #### [facility] [address] [place] [address] Dr. Gautam Van Protein [Mass/Vol] 7.3 g/dL Normal 6.4-8.[address] [facility] Comment on above: Performed By: #### L IPID, T4, TSH, CMP #### [facility] [address] [place] [address] Dr. Gautam Van Sodium [Moles/Vol] 139 mmol/L Normal 136-145 [facility] Comment on above: Performed By: #### L IPID, T4, TSH, CMP #### [facility] [address] [address] [address] Gautam Van Urea nitrogen [Mass/Vol] 16.0 mg/dL Normal 7.0-18.0 [facility] Comment on above: Performed By: #### L IPID, T4, TSH, CMP #### [facility] [address] [address] [address] Gautam Van Urea nitrogen/Creatinine [Mass ratio] 19.8 mg/mg Normal [facility] Comment on above: Performed By: #### L IPID, T4, TSH, CMP #### [facility] [address] [address] [address] Gautam Van T4on 12-27-2022 T4 [Mass/Vol] 9.10 ug/dL Normal 4.50-12.10 [facility] Comment on above: Performed By: #### L IPID, T4, TSH, CMP ####[facility] [address] [place], [place] [address]NnDr. Gautam Van TSHon 12-27-2022 TSH 1.043 uIU/mL Normal 0.358-3.74 0 [facility] Comment on above: Performed By: #### L IPID, T4, TSH, CMP #### [facility] [id number] Gaut[address] Van [address] FOOT RT WO CONon 11-18-[address] FOOT RT WO CON EXAMINATION: CT [...] by: KIRSTIE DODD Date: 2022-11-17 08:57 Normal [facility] Basic metabolic 2000 panelon 10-17-2022 Anion gap [Moles/Vol] 9 mmol/L Normal 9-18 [facility] Comment on above: Order Comment: Speci men Type: BLOOD SPECIMEN Ordering Facility: [facility] Address: [address] [address] Performed By: #### 1 91239, 29796-8 #### [facility] CLIA [id number] [place] [address] [place] Calcium [Mass/Vol] 9.4 mg/dL Normal 8.5-10.2 [facility] Comment on above: Order Comment: Speci men Type: BLOOD SPECIMEN Ordering Facility: [facility] Address: [address] [address] Performed By: #### 1 91239, 22055-0 #### [facility] CLIA [id number] [place] [address] [place] Chloride [Moles/Vol] 101 mmol/L Normal 97-105 [facility] Comment on above: Order Comment: Speci men Type: BLOOD SPECIMEN Ordering Facility: [facility] Address: [address] Performed By: #### 1 91239, 68621-4 #### [facility] CLIA [id number] [place] [address] [place] CO2 [Moles/Vol] 30 mmol/L Normal 22-30 [facility] Comment on above: Order Comment: Speci men Type: BLOOD SPECIMEN Ordering Facility: [facility] Address: [address] [address] Performed By: #### 1 91239, 84015-7 #### [facility] CLIA [id number] [address] [place] [address] [place] Creatinine [Mass/Vol] 1.01 mg/dL Normal 0.73-1.22 [facility] Comment on above: Order Comment: Geovanny smiley Type: BLOOD SPECIMEN Ordering Facility: [facility] Address: [address] [address] Performed By: #### 1 9123-9, 95943-5 #### [facility] CLIA [id number] [place] [address] [place] ESTIMATED GLOMERULAR FILTRATION RATE 84 mL/min/1.73m??? Normal >=60 [facility] Comment on above: Order Comment: Geovanny smiley Type: BLOOD SPECIMEN Ordering Facility: [facility] Address: [address] [place], [place] [id number] Result Comment: Kaylee mated Glomerular Filtration Rate [...] actual GFR. Performed By: #### 1 9123-9, 76473-7 #### [facility] CLIA [id number] [place] [address] [place] Glucose [Mass/Vol] 92 mg/dL Normal 74-99 [facility] Comment on above: Order Comment: Geovanny smiley Type: BLOOD SPECIMEN Ordering Facility: [facility] Address: [address] [place] [address] Result Comment: The [place] [employer] Association (ADA) provides guidance for cutoff [...] Standards of Medical Care in Diabetes 2016, [place] [employer]. Diabetes Care. 2016.39(Suppl 1). Performed By: #### 1 9123-, 20669-1 #### [facility] CLIA [id number] [place] [address] [place] Potassium [Moles/Vol] 4.4 mmol/L Normal 3.7-5.1 [facility] Comment on above: Order Comment: Speci men Type: BLOOD SPECIMEN Ordering Facility: [facility] Address: [address] [address] Performed By: #### 1 9123-04, 27877-6 #### [facility] CLIA [id number] [place] [address] [place] Sodium [Moles/Vol] 140 mmol/L Normal 136-144 [facility] Comment on above: Order Comment: Taylori baljit Type: BLOOD SPECIMEN Ordering Facility: [facility] Address: [address] [address] Performed By: #### 1 9123-04, #### [facility] CLIA [id number] [place] [address] [place] Urea nitrogen [Mass/Vol] 22 mg/dL Normal 9-24 [facility] Comment on above: Order Comment: Taylori baljit Type: BLOOD SPECIMEN Ordering Facility: [facility] Address: [address] [address] Performed By: #### 1 9123, 75147-0 #### [facility] CLIA [id number] [place] [address] [place] Anion gap [Moles/Vol] 9 mmol/L 9 - 18 mmol/L [facility] Calcium [Mass/Vol] 9.4 mg/dL 8.5 - 10. 2 mg/dL [facility] Chloride [Moles/Vol] 101 mmol/L 97 - 10 5 mmol/L [facility] CO2 [Moles/Vol] 30 mmol/L 22 - 30 mmol/L [facility] Creatinine [Mass/Vol] 1.01 mg/dL 0.73 - 1.22 mg/dL [facility] Estimated Glomerular Filtration Rate 84 mL/min/1.73m >=60 mL/min/1.7 3m [facility] Glucose [Mass/Vol] 92 mg/dL 74 - 99 mg/dL [facility] Potassium [Moles/Vol] 4.4 mmol/L 3.7 - 5.1 mmol/L [facility] Sodium [Moles/Vol] 140 mmol/L 136 - 144 mmol/L [facility] Urea nitrogen [Mass/Vol] 22 mg/dL 9 - 24 mg/dL [facility] MAGNESIUM BLDon 10-17-2022 Magnesium [Mass/Vol] 2.1 mg/dL 1.7 - 2 .3 mg/dL [facility] Magnesium SerPl-mCncon 10-17 Magnesium [Mass/Vol] 2.1 mg/dL Normal 1.7-2.3 [facility] Comment on above: Order Comment: Speci men Type: BLOOD SPECIMEN Ordering Facility: [facility] Address: [address] [place] [id number] Performed By: #### 1 9123-9, 05031-2 #### [facility] CLIA [id number] [facility]. [address] OF [facility] XR ANKLE RT MIN 3 VIEWSon XR [...] by: DIANE MENEZES Date: 2022-10-09 07:38 Normal [facility] ARRHYTHMIA TRANS TELE MEASUR James 06-10-2022 Measure MD Interval [facility] MEASURE QRS Interval 60 [facility] MEASURE QT Interval 326 [facility] MEASURE RR INTERVAL MAX 78.86 [facility] Symptoms routine [facility] ARRHYTHMIA TRANS TELE MEASUR James 05-06-2022 Arrhythmia-Activity tried a couple diffe rent times [facility] Measure MD Interval [facility] MEASURE QRS Interval 80 [facility] QT Interval 332 [facility] MEASURE RR INTERVAL MAX 91.21 [facility] Symptoms routine [facility] ARRHYTHMIA TRANS TELE MEASUR James 04-22-2022 Measure MD Interval 134 [facility] MEASURE QRS Interval 91 [facility] ME[facility] QT Interval 396 [facility] MEASURE RR INTERVAL MAX 81.74 [facility] Symptoms routine [facility] ARRHYTHMIA TRANS TELE MEASUR James 04-04-2022 Measure MD Interval 201 [facility] MEASURE QRS Interval 84 [facility] MEASURE QT Interval 362 [facility] MEASURE RR INTERVAL MAX 82.87 [facility] Symptoms routine [facility] CREATININE, BLOOD (POC)on Creatinine [Mass/Vol] 0.90 mg/dL 0.7 - 1.4 mg/dL [facility] GFR/1.73 sq M.predicted among non-blacks MDRD (S/P/Bld) [Vol rate/Area] mL/min/{1.73_m2} [facility] CT PULMONARY VEIN W IVCONon 03-22-2022 Radiology Result ACTIONABLE Abnormal [facility] ARRHYTHMIA TRANS TELE MEASUR James 03-19-2022 Measure MD Interval [facility] MEASURE QRS Interval 97 [facility] MEASURE QT Interval 362 [facility] MEASURE RR INTERVAL MAX 75.85 [facility] Symptoms routine - BP is elev ated, pt. feeling palpitaions when lying down, tired-3-5 day [facility] ARRHYTHMIA TRANS TELE MEASUR James 03-13-2022 Measure MD Interval [facility] MEASURE QRS Interval 107 [facility] MEASURE QT Interval [facility] MEASURE RR INTERVAL MAX 75.85 [facility] Symptoms routine [facility] ARRHYTHMIA TRANS TELE MEASUR James 03-04-2022 Measure MD Interval 141 [facility] MEASURE QRS Interval 60 [facility] MEASURE QT Interval 318 [facility] MEASURE RR INTERVAL MAX 77.16 [facility] Symptoms routine [facility] ARRHYTHMIA TRANS TELE MEASUR James 02-18-2022 Measure MD Interval [facility] MEASURE QRS Interval 60 [facility] MEASURE QT Interval 450 [facility] MEASURE RR INTERVAL MAX 70.82 [facility] Symptoms routine [facility] ARRHYTHMIA TRANS TELE MEASUR James 02-12-2022 Measure MD Interval 130 [facility] MEASURE QRS Interval 60 [facility] MEASURE QT Interval 450 [facility] MEASURE RR INTERVAL MAX 71.95 [facility] Symptoms routine [facility] ARRHYTHMIA TRANS TELE MEASUR James 02-08-2022 Measure MD Interval 130 [facility] MEASURE QRS Interval 60 [facility] MEASURE QT Interval 362 [facility] MEASURE RR INTERVAL MAX 72.53 [facility] Symptoms routine [facility] ARRHYTHMIA TRANS TELE MEASUR James 02-04-2022 Measure MD Interval 130 [facility] MEASURE QRS Interval 60 [facility] MEASURE QT Interval 368 [facility] MEASURE RR INTERVAL MAX 67.8 [facility] Symptoms routine [facility] ARRHYTHMIA TRANS TELE MEASUR James 01-28-2022 Measure MD Interval 130 [facility] MEASURE QRS Interval 60 [facility] MEASURE QT Interval 382 [facility] MEASURE RR INTERVAL MAX 71.89 [facility] Symptoms routine [facility] ARRHYTHMIA TRANS TELE MEASUR James 01-22-2022 Measure MD Interval 130 [facility] MEASURE QRS Interval 60 [facility] MEASURE QT Interval 328 [facility] MEASURE RR INTERVAL MAX 77.83 [facility] Symptoms routine [facility] ARRHYTHMIA TRANS TELE MEASUR James 01-18-2022 Measure MD Interval 130 [facility] MEASURE QRS Interval 60 [facility] MEASURE QT Interval 450 [facility] MEASURE RR INTERVAL MAX 79.56 [facility] Symptoms routine [facility] ARRHYTHMIA TRANS TELE MEASUR James 01-14-2022 Measure MD Interval 130 [facility] MEASURE QRS Interval 60 [facility] MEASURE QT Interval 348 [facility] MEASURE RR INTERVAL MAX 66.79 [facility] Symptoms Routine [facility] ARRHYTHMIA TRANS TELE MEASUR James 01-07-2022 Measure MD Interval 173 [facility] MEASURE QRS Interval 76 [facility] MEASURE QT Interval 389 [facility] MEASURE RR INTERVAL MAX 68.15 [facility] Symptoms routine [facility] ARRHYTHMIA TRANS TELE MEASUR James 12-17-2021 Measure MD Interval 186 [facility] MEASURE QRS Interval 80 [facility] MEASURE QT Interval 369 [facility] MEASURE RR INTERVAL MAX 74.32 [facility] Symptoms routine [facility] ARRHYTHMIA TRANS TELE MEASUR James 12-11-2021 Measure MD Interval 130 [facility] MEASURE QRS Interval 60 [facility] MEASURE QT Interval 345 [facility] MEASURE RR INTERVAL MAX 73.06 [facility] Symptoms baseline [facility] ARRHYTHMIA TRANS TELE MEASUR James 12-04-2021 Measure MD Interval 191 [facility] MEASURE QRS Interval 97 [facility] MEASURE QT Interval 450 [facility] MEASURE RR INTERVAL MAX 70.75 [facility] Symptoms baseline [facility] Tobacco Screening.on 022 Tobacco use status [facility]PH[facility] b) No [facility] [address] DO Work Phone: No Panel Informationon 08-29 27.0\S\27.0 Normal 22.0-30.0 [facility] [place] [address] DO Work Phone: Comment on above: PERFORMED BY:[address] [place], [place] [id number] MEDICAL DIRECTORADEEL LOPES M.D. 99\S\99 Normal 95-114 [facility] [place] [address] DO Work Phone: [phone] 3.8\S\3.8 Normal 3.5-5.1 [facility] [place] [facility] DO Work Phone: 139\S\139 Normal 136-146 [facility] [place] [address] DO Work Phone: IO EKG Electrocardiogram- 12 Leadon 06-26-2021 IO EKG Electrocardiogram- 12 Lead See Scanned Document [facility] [place] [facility] DO Work Phone: Office Visit (Cardiology)on [...] signing my name below, I, Diallo Crain LPNibkera, attest that this documentation has been prepared [...] 2. I advised him to buy a [employer] monitor to allow us for better assessing [...] Vital Signs Recorded: 26Jun2021 01:28PMRecorded: 26Jun2021 01:06PM [id number], RUE, [id number], LUE, Sitting [id number], R (more content not included)... Normal [facility] Tobacco Screening.on Fall risk assessment a) No falls within the last year -[facility] [address] [place] Work Phone: Tobacco use status CPHS b) No [facility] [address] DO Work Phone: CREATININEon 09-05-2020 Creatinine [Mass/Vol] 0.91 mg/dL Normal 0.50 - 1.30 [facility] Comment on above: Performed By: #### C REAT #### [address] [id number] GFR- AM. >60 Normal >60 [facility] [place] Comment on above: Result Comment: CALC ULATIONS OF ESTIMATED GFR ARE PERFORMED USING THE MDRD STUDY EQUATION FOR THE IDMS-TRACEABLE CREATININE METHODS. CLIN CHEM 2007;53:766-72 Performed By: #### C REAT #### [address] [id number] GFR-NON AM. >60 Normal >60 [facility] Comment on above: Performed By: #### C REAT #### [address] [id number] ELECTROLYTE PANELon 09-05-19 21 Anion gap [Moles/Vol] 12 mmol/L Normal 10 - 20 [facility] Comment on above: Performed By: #### E LECT #### [address] [id number] Chloride [Moles/Vol] 100 mmol/L Normal 98 - 107 [facility] Comment on above: Performed By: #### E LECT #### [address] [id number] HCO3 (Bld) [Moles/Vol] 31 mmol/L Normal 21 - 32 [facility] Comment on above: Performed By: #### E LECT #### [address] [id number] Potassium [Moles/Vol] 3.9 mmol/L Normal 3.5 - 5.3 [facility] Comment on above: Performed By: #### E LECT #### [address] [id number] Sodium [Moles/Vol] 139 mmol/L Normal 136 - 145 [facility] Comment on above: Performed By: #### E LECT #### [address] [id number] UREA NITROGENon 09-05-2020 Urea nitrogen [Mass/Vol] 19 mg/dL Normal 6 - 23 [facility] Comment on above: Performed By: #### U TRIP #### [address] [id number] Vital Signs Date Time Vital Sign Value Performing Clinician Facility 05-13-2025 09:38-0400 Body height 182.88 cm Linda Jansen ALCOHOL LAW ENFORCEMENT AGENT-C Work Phone: [facility] 05-13-2025 09:38-0400 Body mass index (BMI) [Ratio] 26 kg/m2 iLnda Jansen ALCOHOL LAW ENFORCEMENT AGENT-C Work Phone: [facility] 05-13-2025 09:38-0400 Body temperature 98.2 [degF] Linda Jansen ALCOHOL LAW ENFORCEMENT AGENT-C Work Phone: [facility] 05-13-2025 09:38-0400 Body weight 87.08 kg Linda Jansen ALCOHOL LAW ENFORCEMENT AGENT-C Work Phone: [facility] 05-13-2025 09:38-0400 Diastolic blood pressure 78 mm[Hg] Linda Jansen ALCOHOL LAW ENFORCEMENT AGENT-C Work Phone: [facility] 05-13-2025 09:38-0400 Heart rate 66 /min Linda Hemmer ALCOHOL LAW ENFORCEMENT AGENT-C Work Phone: [facility] 05-13-2025 09:38-0400 Respiratory rate 16 /min Linda Hemmer ALCOHOL LAW ENFORCEMENT AGENT-C Work Phone: [facility] 05-13-2025 09:38-0400 SaO2% (BldA) [Mass fraction] 100 % Linda Hemmer ALCOHOL LAW ENFORCEMENT AGENT-C Work Phone: [facility] 05-13-2025 09:38-0400 Systolic blood pressure 148 mm[Hg] Linda Hemmer ALCOHOL LAW ENFORCEMENT AGENT-C Work Phone: [facility] 04-04-2025 14:32-0400 Body height 182.9 cm Bill Tuttle MD Work Phone: [facility] 04-04-2025 14:32-0400 Body mass index (BMI) [Ratio] 26.49 kg/m2 Bill Tuttle MD Work Phone: [facility] 04-04-2025 14:32-0400 Body weight 88.6 kg Bill Tuttle MD Work Phone: [facility] 04-04-2025 14:32-0400 Diastolic blood pressure 88 mm[Hg] Bill Tuttle MD Work Phone: [facility] 04-04-2025 14:32-0400 Heart rate 76 /min Bill Tuttle MD Work Phone: [facility] 04-04-2025 14:32-0400 Systolic blood pressure 132 mm[Hg] Bill Tuttle MD Work Phone: [facility] 03-04-2025 14:53-0400 Body height 182.88 cm Linad Hemmer ALCOHOL LAW ENFORCEMENT AGENT-C Work Phone: [facility] 03-04-2025 14:53-0400 Body mass index (BMI) [Ratio] 26.9 kg/m2 Linda Hemmer ALCOHOL LAW ENFORCEMENT AGENT-C Work Phone: [facility] 03-04-2025 14:53-0400 Body temperature 97.7 [degF] Linda Hemmer ALCOHOL LAW ENFORCEMENT AGENT-C Work Phone: [facility] 03-04-2025 14:53-0400 Body weight 90.26 kg Linda Hemmer ALCOHOL LAW ENFORCEMENT AGENT-C Work Phone: [facility] 03-04-2025 14:53-0400 Diastolic blood pressure 79 mm[Hg] Linda Hemmer ALCOHOL LAW ENFORCEMENT AGENT-C Work Phone: [facility] 03-04-2025 14:53-0400 Heart rate 65 /min Linda Hemmer ALCOHOL LAW ENFORCEMENT AGENT-C Work Phone: [facility] 03-04-2025 14:53-0400 Respiratory rate 18 /min Linda Hemmer ALCOHOL LAW ENFORCEMENT AGENT-C Work Phone: [facility] 03-04-2025 14:53-0400 SaO2% (BldA) [Mass fraction] 98 % Lidna Hemmer ALCOHOL LAW ENFORCEMENT AGENT-C Work Phone: [facility] 03-04-2025 14:53-0400 Systolic blood pressure 152 mm[Hg] Linda Hemmer ALCOHOL LAW ENFORCEMENT AGENT-C Work Phone: [facility] 03-01-2025 09:26-0400 Body height 182.9 cm Linda Hemmer PA Work Phone: [facility] 03-01-2025 09:26-0400 Body mass index (BMI) [Ratio] 27.04 kg/m2 Linda Hemmer PA Work Phone: [facility] 03-01-2025 09:26-0400 Body weight 90.45 kg Linda Hemmer PA Work Phone: [facility] 03-01-2025 09:26-0400 Diastolic blood pressure 84 mm[Hg] Linda Hemmer PA Work Phone: [facility] 03-01-2025 09:26-0400 Heart rate 72 /min Linda Hemmer PA Work Phone: [facility] 03-01-2025 09:26-0400 Respiratory rate 16 /min Linda Jansen PA Work Phone: [facility] 03-01-2025 09:26-0400 SaO2% (BldA) [Mass fraction] 98 % Linda Jansen PA Work Phone: [facility] 03-01-2025 09:26-0400 Systolic blood pressure 132 mm[Hg] Linda Jansen PA Work Phone: [facility] 02-19-2025 09:35-0400 Body height 182.88 cm [facility] 02-19-2025 09:35-0400 Body mass index (BMI) [Ratio] 27.3 kg/m2 [facility] 02-19-2025 09:35-0400 Body temperature 98.7 [degF] [facility] 02-19-2025 09:35-0400 Body weight 91.28 kg [facility] 02-19-2025 09:35-0400 Diastolic blood pressure 74 mm[Hg] [facility] 02-19-2025 09:35-0400 Heart rate 73 /min [facility] 02-19-2025 09:35-0400 Respiratory rate 18 /min [facility] 02-19-2025 09:35-0400 SaO2% (BldA) [Mass fraction] 97 % [facility] 02-19-2025 09:35-0400 Systolic blood pressure 124 mm[Hg] [facility] 02-10-2025 10:48-0400 Diastolic blood pressure 91 mm[Hg] [facility] 02-10-2025 10:48-0400 Heart rate 77 /min [facility] 02-10-2025 10:48-0400 Respiratory rate 18 /min [facility] 02-10-2025 10:48-0400 SaO2% (BldA) [Mass fraction] 100 % [facility] 02-10-2025 10:48-0400 Systolic blood pressure 150 mm[Hg] [facility] 02-10-2025 09:16-0400 Body height 182.88 cm [facility] 02-10-2025 09:16-0400 Body weight 90.71 kg [facility] 01-21-2025 15:04-0400 Body height 182.88 cm [facility] 01-21-2025 15:04-0400 Body mass index (BMI) [Ratio] 27.9 kg/m2 [facility] 01-21-2025 15:04-0400 Body temperature 98.2 [degF] [facility] 01-21-2025 15:04-0400 Body weight 93.44 kg [facility] 01-21-2025 15:04-0400 Diastolic blood pressure 89 mm[Hg] [facility] 01-21-2025 15:04-0400 Heart rate 62 /min [facility] 01-21-2025 15:04-0400 Respiratory rate 18 /min [facility] 01-21-2025 15:04-0400 SaO2% (BldA) [Mass fraction] 98 % [facility] 01-21-2025 15:04-0400 Systolic blood pressure 160 mm[Hg] [facility] 12-09-2024 15:34-0400 Body height 182.9 cm Niblitz Work Phone: [facility] 12-09-2024 15:34-0400 Body mass index (BMI) [Ratio] 28.21 kg/m2 Niblitz Work Phone: [facility] 12-09-2024 15:34-0400 Body weight 94.35 kg Niblitz Work Phone: [facility] 09-30-2024 15:52-0500 Body height 182.9 cm Niblitz Work Phone: [facility] 09-30-2024 15:52-0500 Body mass index (BMI) [Ratio] 28.35 kg/m2 Niblitz Work Phone: [facility] 09-30-2024 15:52-0500 Body temperature 97.39 [degF] Niblitz Work Phone: [facility] 09-30-2024 15:52-0500 Body weight 94.8 kg Eulalio Irby DO Work Phone: [facility] 09-21-2024 16:43-0500 Body height 182.9 cm Tony Ebbitt PA-C Work Phone: [facility] 09-21-2024 16:43-0500 Body mass index (BMI) [Ratio] 27.81 kg/m2 Tony Ebbitt PA-C Work Phone: [facility] 09-21-2024 16:43-0500 Body weight 93 kg Tony Ebbitt PA-C Work Phone: [facility] 09-21-2024 16:43-0500 Diastolic blood pressure 82 mm[Hg] Tony Ebbitt PA-C Work Phone: [facility] 09-21-2024 16:43-0500 Systolic blood pressure 142 mm[Hg] Tony Ebbitt PA-C Work Phone: [facility] 09-15-2024 15:28-0500 Body height 182.9 cm Linda Hemmer PA Work Phone: [facility] 09-15-2024 15:28-0500 Body mass index (BMI) [Ratio] 28.4 kg/m2 Linda Hemmer PA Work Phone: [facility] 09-15-2024 15:28-0500 Body temperature 97.7 [degF] Linda Hemmer PA Work Phone: [facility] 09-15-2024 15:28-0500 Body weight 94.98 kg Linda Hemmer PA Work Phone: [facility] 09-15-2024 15:28-0500 Diastolic blood pressure 78 mm[Hg] Linda Hemmer PA Work Phone: [facility] 09-15-2024 15:28-0500 Heart rate 64 /min Linda Hemmer PA Work Phone: [facility] 09-15-2024 15:28-0500 Respiratory rate 16 /min Linda Hemmer PA Work Phone: [facility] 09-15-2024 15:28-0500 SaO2% (BldA) [Mass fraction] 98 % Linda PIEDRA Work Phone: [facility] 09-15-2024 15:28-0500 Systolic blood pressure 124 mm[Hg] Linda PIEDRA Work Phone: [facility] 08-24-2024 11:04-0500 Body height 182.9 cm Eulalio Brown DO Work Phone: [facility] 08-24-2024 11:04-0500 Body mass index (BMI) [Ratio] 27.4 kg/m2 Eulalio Brown DO Work Phone: [facility] 08-24-2024 11:04-0500 Body temperature 97.39 [degF] Eulalio Brown DO Work Phone: [facility] 08-24-2024 11:04-0500 Body weight 91.63 kg Eulalio Brown DO Work Phone: [facility] 08-06-2024 15:24-0500 Body height 182.88 cm Sedrick Ye MD Work Phone: [facility] 08-06-2024 15:24-0500 Body weight 92.98 kg Sedrick Ye MD Work Phone: [facility] 07-27-2024 15:52-0500 Body height 182.9 cm Eulalio Brown DO Work Phone: [facility] 07-27-2024 15:52-0500 Body mass index (BMI) [Ratio] 27.4 kg/m2 Eulalio Brown DO Work Phone: [facility] 07-27-2024 15:52-0500 Body weight 91.63 kg Eulalio Brown DO Work Phone: [facility] 06-15-2024 15:49-0400 Body height 182.9 cm Eulalio Brown DO Work Phone: [facility] 06-15-2024 15:49-0400 Body mass index (BMI) [Ratio] 27.4 kg/m2 Eulalio Irby DO Work Phone: [facility] 06-15-2024 15:49-0400 Body weight 91.63 kg Eulalio Irby DO Work Phone: [facility] 06-11-2024 09:58-0400 Body height 182.9 cm rGace Haque MD Work Phone: [facility] 06-11-2024 09:58-0400 Body mass index (BMI) [Ratio] 27.4 kg/m2 Grace Haque MD Work Phone: [facility] 06-11-2024 09:58-0400 Body weight 91.63 kg Grace Haque MD Work Phone: [facility] 06-10-2024 16:21-0400 Body height 182.9 cm Sedrick Trotter ALCOH[employer] LAW ENFORCEMENT AGENT Work Phone: [facility] 06-10-2024 16:21-0400 Body mass index (BMI) [Ratio] 27.4 kg/m2 Sedrick Trotter ALCOHOL LAW ENFORCEMENT AGENT Work Phone: [facility] 06-10-2024 16:21-0400 Body weight 91.63 kg Sedrick Trotter ALCOH[employer] LAW ENFORCEMENT AGENT Work Phone: [facility] 06-10-2024 16:21-0400 Diastolic blood pressure 84 mm[Hg] Sedrick Trotter ALCOHOL LAW ENFORCEMENT AGENT Work Phone: [facility] 06-10-2024 16:21-0400 Heart rate 67 /min Sedrick Trotter ALCOH[employer] LAW ENFORCEMENT AGENT Work Phone: [facility] 06-10-2024 16:21-0400 SaO2% (BldA) [Mass fraction] 98 % Sedrick Trotter ALCOHOL LAW ENFORCEMENT AGENT Work Phone: [facility] 06-10-2024 16:21-0400 Systolic blood pressure 134 mm[Hg] Sedrick Trotter ALCOH[employer] LAW ENFORCEMENT AGENT Work Phone: [facility] 05-21-2024 09:21-0400 Body height 182.9 cm Grace Haque MD Work Phone: [facility] 05-21-2024 09:21-0400 Body mass index (BMI) [Ratio] 27.12 kg/m2 Grace Haque MD Work Phone: [facility] 05-21-2024 09:21-0400 Body weight 90.72 kg Grace Haque MD Work Phone: [facility] 05-21-2024 09:21-0400 Diastolic blood pressure 80 mm[Hg] Grace Haque MD Work Phone: [facility] 05-21-2024 09:21-0400 Systolic blood pressure 120 mm[Hg] Grace Haque MD Work Phone: [facility] 04-23-2024 14:57-0400 Body height 182.88 cm MD Sedrick Ye Work Phone: [facility] 04-23-2024 14:57-0400 Body mass index (BMI) [Ratio] 26.7 kg/m2 MD Sedrick Ye Work Phone: [facility] 04-23-2024 14:57-0400 Body temperature 97.3 [degF] MD Sedrick Ye Work Phone: [facility] 04-23-2024 14:57-0400 Body weight 89.35 kg MD Sedrick Ye Work Phone: [facility] 04-23-2024 14:57-0400 Diastolic blood pressure 83 mm[Hg] MD Sedrick Ye Work Phone: [facility] 04-23-2024 14:57-0400 Heart rate 62 /min MD Sedrick Ye Work Phone: [facility] 04-23-2024 14:57-0400 Respiratory rate 16 /min MD Sedrick Ye Work Phone: [facility] 04-23-2024 14:57-0400 SaO2% (BldA) [Mass fraction] 97 % MD Sedrick Ye Work Phone: [facility] 04-23-2024 14:57-0400 Systolic blood pressure 153 mm[Hg] MD Sedrick Ye Work Phone: [facility] 01-30-2024 14:12-0400 Body height 182.9 cm Bill Tuttle MD Work Phone: [facility] 01-30-2024 14:12-0400 Body mass index (BMI) [Ratio] 27.69 kg/m2 Bill Tuttle MD Work Phone: [facility] 01-30-2024 14:12-0400 Body weight 92.6 kg Bill Tuttle MD Work Phone: [facility] 01-30-2024 14:12-0400 Diastolic blood pressure 80 mm[Hg] Bill Tuttle MD Work Phone: [facility] 01-30-2024 14:12-0400 Heart rate 66 /min Bill Tuttle MD Work Phone: [facility] 01-30-2024 14:12-0400 SaO2% (BldA) [Mass fraction] 97 % Bill Tuttle MD Work Phone: [facility] 01-30-2024 14:12-0400 Systolic blood pressure 148 mm[Hg] Bill Tuttle MD Work Phone: [facility] 01-23-2024 14:01-0400 Body height 182.88 cm MD Sedrick Ye Work Phone: [facility] 01-23-2024 14:01-0400 Body mass index (BMI) [Ratio] 27.5 kg/m2 MD Sedrick Ye Work Phone: [facility] 01-23-2024 14:01-0400 Body temperature 98.4 [degF] MD Sedrick Ye Work Phone: [facility] 01-23-2024 14:01-0400 Body weight 92.07 kg MD Sedrick Ye Work Phone: [facility] 01-23-2024 14:01-0400 Diastolic blood pressure 81 mm[Hg] MD Sedrick Ye Work Phone: [facility] 01-23-2024 14:01-0400 Heart rate 71 /min MD Sedrick Ye Work Phone: [facility] 01-23-2024 14:01-0400 Respiratory rate 20 /min MD Sedrick Ye Work Phone: [facility] 01-23-2024 14:01-0400 SaO2% (BldA) [Mass fraction] 99 % MD Sedrick Ye Work Phone: [facility] 01-23-2024 14:01-0400 Systolic blood pressure 160 mm[Hg] MD Sedrick Ye Work Phone: [facility] 07-31-2023 13:23-0500 Body height 182.9 cm Bill Tuttle MD Work Phone: [facility] 07-31-2023 13:23-0500 Body weight 88.91 kg Bill Tuttle MD Work Phone: [facility] 07-31-2023 13:23-0500 Diastolic blood pressure 88 mm[Hg] Blil Tuttle MD Work Phone: [facility] 07-31-2023 13:23-0500 Heart rate 71 /min Bill Tuttle MD Work Phone: [facility] 07-31-2023 13:23-0500 Systolic blood pressure 154 mm[Hg] Bill Tuttle MD Work Phone: [facility] 12-25-2022 14:11-0400 Body height 182.9 cm Bill Tuttle MD Work Phone: [facility] 12-25-2022 14:11-0400 Body weight 90.72 kg Bill Tuttle MD Work Phone: [facility] 12-25-2022 14:11-0400 Diastolic blood pressure 82 mm[Hg] Bill Tuttle MD Work Phone: [facility] 12-25-2022 14:11-0400 Systolic blood pressure 152 mm[Hg] Bill Tuttle MD Work Phone: [facility] 10-17-2022 15:10-0500 Body height 182.9 cm Bill Tuttle MD Work Phone: [facility] 10-17-2022 15:10-0500 Body weight 91.63 kg Bill Tuttle MD Work Phone: [facility] 10-17-2022 15:10-0500 Diastolic blood pressure 88 mm[Hg] Bill Tuttle MD Work Phone: [facility] 10-17-2022 15:10-0500 Heart rate 75 /min Bill Tuttle MD Work Phone: [facility] 10-17-2022 15:10-0500 SaO2% (BldA) [Mass fraction] 98 % Bill Tuttle MD Work Phone: [facility] 10-17-2022 15:10-0500 Systolic blood pressure 148 mm[Hg] Bill Tuttle MD Work Phone: [facility] 09-13-2022 15:12-0500 Body height 182.9 cm Bill Tuttle MD Work Phone: [facility] 09-13-2022 15:12-0500 Body weight 92.53 kg Bill Tuttle MD Work Phone: [facility] 09-13-2022 15:12-0500 Diastolic blood pressure 82 mm[Hg] Bill Tuttle MD Work Phone: [facility] 09-13-2022 15:12-0500 Heart rate 79 /min Bill Tuttle MD Work Phone: [facility] 09-13-2022 15:12-0500 SaO2% (BldA) [Mass fraction] 98 % Bill Tuttle MD Work Phone: [facility] 09-13-2022 15:12-0500 Systolic blood pressure 140 mm[Hg] Bill Tuttle MD Work Phone: [facility] 08-01-2022 13:49-0500 Diastolic blood pressure 95 mm[Hg] Hiren Sena MD Work Phone: [facility] 08-01-2022 13:49-0500 Heart rate 75 /min Hiren Sena MD Work Phone: [facility] 08-01-2022 13:49-0500 SaO2% (BldA) [Mass fraction] 97 % Hiren Sena MD Work Phone: [facility] 08-01-2022 13:49-0500 Systolic blood pressure 149 mm[Hg] Hiren Sena MD Work Phone: [facility] 05-10-2022 15:10-0400 Body weight 89.58 kg Bill Tuttle MD Work Phone: [facility] 05-10-2022 15:10-0400 Diastolic blood pressure 80 mm[Hg] Bill Tuttle MD Work Phone: [facility] 05-10-2022 15:10-0400 Heart rate 72 /min Bill Tuttle MD Work Phone: [facility] 05-10-2022 15:10-0400 SaO2% (BldA) [Mass fraction] 98 % Bill Tuttle MD Work Phone: [facility] 05-10-2022 15:10-0400 Systolic blood pressure 128 mm[Hg] Bill Tuttle MD Work Phone: [facility] 03-28-2022 14:44-0400 Body height 182.9 cm Bill Tuttle MD Work Phone: [facility] 03-28-2022 14:44-0400 Body weight 88.45 kg Bill Tuttle MD Work Phone: [facility] 03-28-2022 14:44-0400 Diastolic blood pressure 82 mm[Hg] Bill Tuttle MD Work Phone: [facility] 03-28-2022 14:44-0400 Heart rate 70 /min Bill Tuttle MD Work Phone: [facility] 03-28-2022 14:44-0400 Respiratory rate 18 /min Bill Tuttle MD Work Phone: [facility] 03-28-2022 14:44-0400 SaO2% (BldA) [Mass fraction] 98 % Bill Tuttle MD Work Phone: [facility] 03-28-2022 14:44-0400 Systolic blood pressure 142 mm[Hg] Bill Tuttle MD Work Phone: [facility] 03-22-2022 10:27-0400 Body height 182.9 cm Barbara Rogers 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 Work Phone: [facility] 03-22-2022 10:27-0400 Body weight 90.72 kg Barbara Rogers 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 Work Phone: [facility] 03-22-2022 10:27-0400 Diastolic blood pressure 86 mm[Hg] Barbara Rogers 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 Work Phone: [facility] 03-22-2022 10:27-0400 Heart rate 56 /min Barbara Rogers 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 Work Phone: [facility] 03-22-2022 10:27-0400 Systolic blood pressure 147 mm[Hg] Barbara Rogers 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 Work Phone: [facility] 09-12-2021 14:04-0500 Body height 182.88 cm Sedrick Ye Work Phone: [facility] DO Work Phone: 09-12-2021 14:04-0500 Body mass index (BMI) [Ratio] 27.53 kg/m2 Sedrick Ye Work Phone: [facility] [address] DO Work Phone: 09-12-2021 14:04-0500 Body surface area Derived from formula 2.14 m2 Sedrick Whipple Ye Work Phone: [facility] [address] DO Work Phone: 09-12-2021 14:04-0500 Body weight 92.08 kg Sedrick Whipple Cassi Work Phone: [facility] [address] DO Work Phone: 09-12-2021 14:04-0500 Diastolic blood pressure 84 mm[Hg] Sedrick Whipple Cassi Work Phone: [facility] [address] DO Work Phone: 09-12-2021 14:04-0500 Heart rate 95 /min Sedrick Khanight Work Phone: [facility] [address] DO Work Phone: 09-12-2021 14:04-0500 Systolic blood pressure 144 mm[Hg] Sedrick Khanight Work Phone: [facility] [address] DO Work Phone: 06-26-2021 13:28-0400 Diastolic blood pressure 88 mm[Hg] Sedrick Khanight Work Phone: [facility] [address] DO Work Phone: 06-26-2021 13:28-0400 Systolic blood pressure 138 mm[Hg] Sedrick Khanight Work Phone: [facility] [address] DO Work Phone: 06-26-2021 13:06-0400 Body height 182.88 cm Sedrick Whipple Cassi Work Phone: [facility] [address] DO Work Phone: 06-26-2021 13:06-0400 Body mass index (BMI) [Ratio] 27.94 kg/m2 Sedrick Khanight Work Phone: [facility] [address] DO Work Phone: 06-26-2021 13:06-0400 Body surface area Derived from formula 2.16 m2 Sedrick Ye Work Phone: [facility] [address] DO Work Phone: 06-26-2021 13:06-0400 Body weight 93.44 kg Sedrick Ye Work Phone: [facility] [address] DO Work Phone: 06-26-2021 13:06-0400 Diastolic blood pressure 100 mm[Hg] Sedrick Ye Work Phone: [facility] [address] DO Work Phone: 06-26-2021 13:06-0400 Heart rate 92 /min Sedrick Ye Work Phone: [facility] [address] DO Work Phone: 06-26-2021 13:06-0400 Systolic blood pressure 148 mm[Hg] Sedrick Ye Work Phone: [facility] [address] DO Work Phone: Encounters Encounter Date Encounter Type Care Provider Facility Start: 05-13-2025 Registered Recurring Christian Carlos II [facility] Acute Work Phone: Start: 05-13-2025 Non-patient / Non-visit Geena Carlos II [facility] Work Phone: Start: 05-13-2025 End: 05-13-2025 ambulatory Linda Jansen ALCOHOL LAW ENFORCEMENT AGENT-C Work Phone: [facility] Work Phone: Start: 05-13-2025 End: 05-13-2025 Patient encounter procedure Gracie Daily ALCOHOL LAW ENFORCEMENT AGENTRayrayC -[facility] Work Phone: Start: 05-12-2025 End: 05-12-2025 External Result Encounter Christian Carlos DO Work Phone: [facility] Unsolicited Start: 05-12-2025 End: 05-12-2025 External Result Encounter Christian Carlos DO Work Phone: [facility] Unsolicited Start: 05-09-2025 End: 05-09-2025 Clinisync Result Encounter Generic External Data Provider [facility] Unsolicited Start: 05-09-2025 End: 05-09-2025 Clinisync Result Encounter Generic External Data Provider [facility] Unsolicited Start: 04-04-2025 End: 04-04-2025 Patient encounter procedure Ita Tuttle MD Work Phone: Cardiology Comment on above: PAF (paroxysmal atri al fibrillation) (HCC) (Primary Dx); Atrial fibrillation, persistent (HCC); Benign essential HTN; Hypertension, unspecified type; Tachycardia induced cardiomyopathy (HCC) Start: 03-17-2025 End: 03-17-2025 Telephone encounter Linda PIEDRA Work Phone: [facility] Start: 03-04-2025 Registered Recurring Christian Carlos [facility] Acute Work Phone: Start: 03-04-2025 End: 03-04-2025 ambulatory Linda CHEUNG Work Phone: [facility] Work Phone: Start: 03-04-2025 End: 03-04-2025 Patient encounter procedure Christian Carlos [facility] Ambulatory Work Phone: Start: 03-01-2025 End: 03-01-2025 Bamboo flowsheet Linda PIEDRA Work Phone: [facility] Start: 03-01-2025 End: 03-01-2025 Bamboo flowsheet Linda PIEDRA Work Phone: [facility] Start: 03-01-2025 End: 03-01-2025 Patient encounter status Linda PIEDRA Work Phone: [facility] Work Phone: Start: 03-01-2025 End: 03-01-2025 Periodic preventive med est patient 65yrs& older Linda PIEDRA Work Phone: [facility] Comment on above: Wellness examination (Primary Dx); [...] prostate Start: 03-01-2025 End: 03-01-2025 ambulatory LINDA Robina MASSIMO Not Available Start: 02-19-2025 End: 02-19-2025 ambulatory NON STAFF [facility] Work Phone: Start: 02-19-2025 End: 02-19-2025 Patient encounter procedure Hannah Chambers STOPPERER ASSEMBLER -[facility] [place] Work Phone: Start: 02-10-2025 End: 02-15-2025 External Result Encounter Christian Carlos DO Work Phone: [facility] Unsolicited Start: 02-10-2025 End: 02-15-2025 External Result Encounter Christian Carlos DO Work Phone: [facility] Unsolicited Start: 02-10-2025 End: 02-10-2025 Admission to same day surgery center Christian Carlos II DO -CT Scan [facility] [place] Work Phone: Start: 02-10-2025 End: 02-10-2025 ambulatory Linda Jansen Facility:[facility] Start: 01-21-2025 End: 01-21-2025 ambulatory NON STAFF [facility] Work Phone: Start: 01-21-2025 End: 01-21-2025 [facility] Work Phone: Start: 01-13-2025 End: 01-18-2025 External Result Encounter Christian Carlso DO Work Phone: [facility] Unsolicited [...] 11-30-2024 ambulatory Sedrick Ye MD Work Phone: [facility] Work Phone: Start: 11-30-2024 End: 11-30-2024 Departed Referred Sedrick Ye MD Work Phone: [facility] [address] Work Phone: Start: 11-12-2024 Registered Recurring Sedrick carrillo MD Work Phone: [facility] Work Phone: Start: 11-09-2024 End: 11-09-2024 ambulatory LINDA JANSEN Not Available Start: 10-28-2024 End: 10-28-2024 ambulatory EULALIO IRBY Not Available Start: 09-30-2024 End: 09-30-2024 Patient encounter procedure Eulalio Uribe Mahamed DO Work Phone: [facility] Comment on above: Left hand pain (Prim jose Dx); S/P right knee arthroscopy; Right knee pain, unspecified chronicity Start: 09-30-2024 End: 09-30-2024 ambulatory EULALIO A MAHAMED Not Available Start: 09-30-2024 End: 09-30-2024 ambulatory EULALIO Jojo MAHAMED Not Available Start: 09-27-2024 End: 09-28-2024 Refill Ita Tuttle MD Work Phone: Cardiology Comment on above: Refill Request Start: 09-21-2024 End: 09-21-2024 ambulatory TONY ARMSTRONG Facility:[facility] Start: 09-21-2024 End: 09-21-2024 Patient encounter procedure Tonydarrel Estevez Frank PA-C Work Phone: Cardiology Comment on above: Primary hypertension (Primary Dx); PAF (paroxysmal atrial fibrillation) (HCC); Coronary artery calcification Start: 09-15-2024 End: 09-15-2024 Office outpatient visit 15 minutes Linda PIEDRA Work Phone: [facility] Comment on above: Acute non-recurrent maxillary sinusitis (Primary Dx) Start: 09-15-2024 End: 09-15-2024 ambulatory LINDA JANSEN Not Available Start: 08-24-2024 End: 08-24-2024 Bamboo flowsheet Eulalio Jojo Mahamed DO Work Phone: [facility] Start: 08-24-2024 End: 08-24-2024 Bamboo flowsheet Eulalio A Mahamed DO Work Phone: [facility] Start: 08-24-2024 End: 08-24-2024 Patient encounter procedure Eulalio A Mahamed DO Work Phone: [facility] Comment on above: S/P right knee arthr oscopy (Primary Dx) Start: 08-24-2024 End: 08-24-2024 ambulatory EULALIO IRBY Not Available Start: 07-30-2024 End: 07-30-2024 ambulatory EULALIOKRISTAN IRBY Not Available Start: 07-29-2024 End: 07-29-2024 ambulatory EULALIO IRBY Not Available Start: 07-28-2024 End: 07-28-2024 ambulatory EULALIO IRBY Not Available Start: 07-28-2024 End: 07-29-2024 [...] [facility] Start: 07-24-2024 End: 07-24-2024 ambulatory NON STAFF Facility:[facility] Start: 06-29-2024 End: 06-30-2024 Refill Ita Tuttle [...] Dx) Start: 06-15-2024 End: 06-15-2024 ambulatory EULALIO Uribe MAHAMED Not Available Start: 06-15-2024 End: 06-15-2024 Bamboo flowsheet Eulalio Uribe Mahamed DO Work Phone: [facility] Start: 06-15-2024 [...] 06-10-2024 Office outpatient visit 25 minutes Sedrick Trotter ALCOHOL LAW ENFORCEMENT AGENT Work Phone: [facility] Comment on above: Strain of thoracic b ack region (Primary Dx); Muscle spasm Start: 06-10-2024 End: 06-10-2024 ambulatory SEDRICK TROTTER Not Available Start: 06-10-2024 End: 06-10-2024 Bamboo flowsheet Sedrick Trotter ALCOHOL LAW ENFORCEMENT AGENT Work Phone: [facility] Start: 06-10-2024 End: 06-10-2024 Bamboo flowsheet Sedrick Trotter ALCOHOL LAW ENFORCEMENT AGENT Work Phone: [facility] Start: 05-21-2024 End: 05-21-2024 Office outpatient new 45 minutes Grace Bucio MD Work Phone: [facility] Comment on above: History of colon pro yps (Primary Dx); Screening for malignant neoplasm of colon Start: 05-21-2024 End: 05-21-2024 ambulatory GRACE BUCIO V Not Available Start: 04-23-2024 End: 04-23-2024 ambulatory MD Sedrick Ye Work Phone: [facility] Work Phone: Start: 04-23-2024 End: 04-23-2024 Patient encounter procedure MD Sedrick Ye Work Phone: [facility] Ambulatory Work Phone: Start: 04-23-2024 End: 05-03-2024 External Result Encounter Jose Calleshayley ALCOHOL LAW ENFORCEMENT AGENT Work Phone: [facility] Unsolicited Start: 04-23-2024 End: 05-03-2024 External Result Encounter Jose Calleshayley ALCOHOL LAW ENFORCEMENT AGENT Work Phone: [facility] Unsolicited Start: 04-23-2024 Registered Recurring MD Sedrick hussein [facility] [facility] Work Phone: Start: 04-20-2024 End: 04-20-2024 [...] Start: 01-30-2024 End: 01-30-2024 ambulatory ITA TUTTLE Facility:[facility] Start: 01-23-2024 End: 01-23-2024 ambulatory MD Sedrick Ye Work Phone: [facility] Work Phone: Start: 01-23-2024 End: 01-23-2024 Patient encounter procedure MD Sedrick Ye Work Phone: [facility] Work Phone: Start: 01-23-2024 Registered Recurring MD Sedrick hussein Work Phone: [facility] Acute Work Phone: Start: 12-31-2023 Refill Ita Tuttle MD Work Phone: Cardiology Comment on above: Refill Request Start: 10-03-2023 End: 10-03-2023 ambulatory ITA TUTTLE Facility:[facility] Start: 09-15-2023 Telephone encounter Ita hameed MD Work Phone: Cardiology Start: 07-31-2023 End: 07-31-2023 Patient encounter procedure Ita Tuttle MD Work Phone: Cardiology Comment on above: Hypertension, unspec ified type (Primary Dx); Aortic root dilatation (HCC) Start: 06-02-2023 End: 06-03-2023 ambulatory Iesha Gamino Facility:[facility] Start: 04-14-2023 End: 04-15-2023 ambulatory Iesha Gamino Facility:CD:[id number] Start: 04-09-2023 End: 04-10-2023 ambulatory SEDRICK YE Facility:[facility] Start: 04-01-2023 Refill Britney Gamboa APRN.INSTRUCTIONAL WRITER, DNP Work Phone: Cardiology Comment on above: Refill Request Start: 02-17-2023 ambulatory Ita Tuttle MD Work Phone: Cardiology Comment on above: Eliquis and Aspirin question Start: 01-21-2023 End: 01-22-2023 ambulatory [facility] Facility:[facility] Start: 12-27-2022 End: 12-28-[address] SEDRICK YE . Facility:[facility] Start: 12-25-2022 End: 12-25-2022 Patient encounter procedure Ita Tuttle MD Work Phone: Cardiology Comment on above: Hypertension, unspec ified type (Primary Dx) Start: 12-24-2022 End: 12-25-2022 ambulatory [facility] Facility:[facility] Start: 11-16-2022 End: 11-17-2022 ambulatory SUKHDEEP ZUNIGA Facility:[facility] Start: 10-28-2022 Telephone encounter Hiren willson MD Work Phone: Cardiology Comment on above: Patient Question Start: 10-17-2022 End: 10-18-2022 ambulatory ITA TUTTLE Facility:[facility] Start: 10-17-2022 End: 10-17-2022 Patient encounter procedure Ita Tuttle MD Work Phone: Cardiology Comment on above: Hypertension, unspec ified type (Primary Dx) Start: 10-16-2022 ambulatory Ita Tuttle MD Work Phone: Cardiology Comment on above: Nifedipine Refill Request Start: 10-13-2022 Refill Britney Gamboa APRN.INSTRUCTIONAL WRITER, DNP Work Phone: Cardiology Comment on above: [...] Arrhythmia TTM Hiren montanez MD Work Phone: [facility] Start: 06-10-2022 Recurring Plan Hiren montanez MD Work Phone: [facility] Start: 05-16-2022 ambulatory Hiren montanez MD Work Phone: Cardiology Comment on above: portable EKG transmi tter machine Start: 05-10-2022 End: 05-10-2022 Patient encounter procedure Ita Tuttle MD Work Phone: Cardiology Comment on above: Tachycardia induced cardiomyopathy (HCC) (Primary Dx) Start: 05-06-2022 Arrhythmia TTM Hiren montanez MD Work Phone: [facility] Start: 05-06-2022 Recurring Plan Hiren montanez MD Work Phone: [facility] Start: 04-22-2022 Arrhythmia TTM Hiren montanez MD Work Phone: [facility] Start: 04-22-2022 Recurring Plan Hiren montanez MD Work Phone: [facility] Start: 04-12-2022 ambulatory Bridget Hudson Pulmon[facility] Medicine Start: 04-03-2022 Arrhythmia TTM Hiren montanez MD Work Phone: [facility] Start: 04-03-2022 Recurring Plan Hiren montanez MD Work Phone: [facility] Start: 04-02-2022 ambulatory Barbara jameson 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 Work Phone: Cardiology Comment on above: update on weaning of f Sotalol EKG transmission mac tucker Start: 04-02-2022 E-mail encounter johnny chambers caregiver Barbara Mccloud 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 Work Phone: [facility] Start: 03-29-2022 ambulatory Hiren montanez MD Work Phone: [facility] Start: 03-29-2022 Follow-up encounter Hiren willson MD Work Phone: Cardiology Comment on above: Sotalol follow up Start: 03-28-2022 End: 03-28-2022 Patient encounter procedure Ita Tuttle MD Work Phone: Cardiology Comment on above: Atherosclerosis ([place] j[place] Dx); Ascending aorta dilatation (HCC); Tachycardia induced cardiomyopathy (HCC) Start: 03-26-2022 ambulatory Bijal Davis am, PA-C Work Phone: Pulmonary Medicine Start: 03-22-2022 ambulatory Barbara Shepard mirnat 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 Work Phone: Cardiology Comment on above: Ct scan results echo results Start: 03-22-2022 E-mail encounter johnny chambers caregiver Barbara Mccloud 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 Work Phone: [facility] Start: 03-22-2022 End: 03-22-2022 Patient encounter procedure Barbara Mccloud 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 Work Phone: Cardiology Comment on above: Atrial fibrillation, persistent (HCC) (Primary Dx); Lung nodule; DMITRY (obstructive sleep apnea) Start: 03-22-2022 End: 03-22-2022 Subsequent hospital visit by physician April Li (I-Stat) Work Phone: Radiology Comment on above: Persistent atrial fi brillation (HCC) [I48.19] Start: 03-19-2022 Arrhythmia TTM Hiren montanez MD Work Phone: [facility] Start: 03-19-2022 Recurring Plan Hiren montanez MD Work Phone: [facility] Start: 03-13-2022 Arrhythmia TTM Hiren montanez MD Work Phone: [facility] Start: 03-13-2022 Recurring Plan Hiren montanez MD Work Phone: [facility] Start: 03-04-2022 Arrhythmia TTM Hiren montanez MD Work Phone: [facility] Start: 03-04-2022 Recurring Plan Hiren montanez MD Work Phone: [facility] Start: 02-18-2022 Arrhythmia TTM Hiren montanez MD Work Phone: [facility] Start: 02-18-2022 Recurring Plan Hiren montanez MD Work Phone: [facility] Start: 02-12-2022 Arrhythmia TTM Hiren montanez MD Work Phone: [facility] Start: 02-12-2022 Recurring Plan Hiren montanez MD Work Phone: [facility] Start: 02-08-2022 Arrhythmia TTM Hiren montanez MD Work Phone: [facility] Start: 02-08-2022 Recurring Plan Hiren montanez MD Work Phone: [facility] Start: 02-04-2022 Arrhythmia TTM Hiren montanez MD Work Phone: [facility] Start: 02-04-2022 Recurring Plan Hiren montanez MD Work Phone: [facility] Start: 01-28-2022 Arrhythmia TTM Hiren montanez MD Work Phone: [facility] Start: 01-28-2022 Recurring Plan Hiren montanez MD Work Phone: [facility] Start: 01-22-2022 Arrhythmia TTM Hiren montanez MD Work Phone: [facility] Start: 01-22-2022 Recurring Plan Hiren montanez MD Work Phone: [facility] Start: 01-18-2022 Arrhythmia TTM Hiren montanez MD Work Phone: [facility] Start: 01-18-2022 Recurring Plan Hiren montanez MD Work Phone: [facility] Start: 01-14-2022 Arrhythmia TTM Hiren montanez MD Work Phone: [facility] Start: 01-14-2022 Recurring Plan Hiren montanez MD Work Phone: [facility] Start: 01-09-2022 MC Get Medical Advice Ita Tuttle MD Work Phone: Cardiology Comment on above: Mail order doesn t h ave prescriptions Start: 01-07-2022 Arrhythmia TTM Hiren montanez MD Work Phone: [facility] Start: 01-07-2022 Recurring Plan Hiren montanez MD Work Phone: [facility] Start: 12-21-2021 Refill Ita Tuttle MD Work Phone: Internal Medicine Comment on above: Refill Request Start: 12-20-2021 Refill Hiren montanez MD Work Phone: Cardiology Comment on above: Refill Request Furosemide needed be fore vacation tomorrow Start: 12-17-2021 Arrhythmia TTM Hiren montanez MD Work Phone: [facility] Start: 12-17-2021 Recurring Plan Hiren montanez MD Work Phone: [facility] Start: 12-12-2021 Orders Only Foreign GOMEZ RN.INSTRUCTIONAL WRITER Work Phone: Cardiology Comment on above: Persistent atrial fi brillation (HCC) Start: 12-11-2021 Arrhythmia TTM Hiren montanez MD Work Phone: [facility] Start: 12-11-2021 Recurring Plan Hiren montanez MD Work Phone: [facility] Start: 12-06-2021 ambulatory Hiren montanez MD [...] Arrhythmia TTM Hiren montanez MD Work Phone: [facility] Start: 12-04-2021 Recurring Plan Hiren montanez MD Work Phone: [facility] Start: 11-30-2021 ambulatory Hiren montanez MD Work Phone: Cardiology Comment on above: Patient Education (P ) Start: 10-29-2021 Patient encounter procedure Sedrick Ye Work Phone: [facility] [address] DO Work Phone: Start: 09-18-2021 Telephone encounter Sedrick Vela ht Work Phone: [facility] [address] DO Work Phone: Start: 09-12-2021 Patient encounter procedure Sedrick Ye Work Phone: [facility] [facility] DO Work Phone: Start: 08-29-2021 Chart Update Sedrick eY Work Phone: [facility] [facility] DO Work Phone: Start: 06-26-2021 Office outpatient vi sit 25 minutes Sedrick Ye Work Phone: [facility] [facility] DO Work Phone: Procedures Date Procedure Procedure Detail Performing Clinician Start: 05-13-2025 Antibody screen Linda Potter daydayfaheem Comment on above: Result Comment: PERF ORMED BY: [facility] [address] [address] PATHOLOGIST NUCLEAR MEDICINE MEDICAL DIRECTOR DANIELLE QUINONES M.D. Start: 05-12-2025 Assay of haptoglobin quantitative Christian Carlos DO Work Phone: Start: 05-12-2025 US scan of spleen Linda Jansen ALCOHOL LAW ENFORCEMENT AGENT-C Work Phone: Start: 05-09-2025 ALL SED RATE Generic Ex ternal Data Provider Start: 04-04-2025 Ecg routine ecg w/le ast 12 lds i&r only [facility] Provider Start: 02-10-2025 PATHOLOGY REQUEST FO R LAB REINA Christian Carlos DO Work Phone: Start: 02-10-2025 COAGULATION PROFILE Keith Goldomar DO Work Phone: Start: 02-10-2025 Comprehensive metabo lic panel Christian Goldomar DO Work Phone: Start: 02-10-2025 Serum immunofixation Comment on above: No monoclonality det ected. Start: 02-10-2025 Bone marrow sampling Start: 01-13-2025 Comprehensive metabo lic panel Christian Li Asifomar DO Work Phone: Start: 01-13-2025 FLOWCYTOMETRY NEOGENOMIC Christian Li Asifselinaanjum DO Work Phone: Start: 09-30-2024 Arthrocentesis aspir &/inj major jt/bursa w/o us Eulalio Irby DO Work Phone: Start: 09-30-2024 End: 09-30-2024 Radex hand minimum 3 views Eulalio Irby DO Work Phone: Start: 07-28-2024 Complete blood count with white cell differential, automated Christian Carlos DO Work Phone: Start: 07-28-2024 Comprehensive metabo lic panel Christian Carlos DO Work Phone: Start: 07-28-2024 SPECIMEN STATUS REPORT Christian Carlos DO Work Phone: Start: 04-23-2024 VITAMIN D 25 HYDROXY,TOT+D2+D3 Jose Solares ALCOHOL LAW ENFORCEMENT AGENT Work Phone: Start: 04-20-2024 Comprehensive metabo lic panel Christian Carlos DO Work Phone: Start: 07-31-2023 Ecg routine ecg w/le ast 12 lds i&r only [facility] Provider Start: 12-27-[address] SEDRICK HUSSEIN . Comment on above: Performed By: #### P [facility] #### [facility] [address] [place] [address] Dr. Gautam Van Start: 08-07-2022 Lipid 1996 [...] heart contrast ev al cardiac structure&morph 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 Work Phone: Start: 03-22-2022 Creatinine [Mass/vol ume] [...] RSV Vaccine (1 - 1-dose 75+ series) [facility] Start: 03-18-2030 Prostate specific an tigen measurement Prostate Cancer Screening Discussion [facility] Start: 10-02-2028 Screening for malign ant neoplasm of colon [facility] Start: 03-18-2028 Diabetes Screening Diabetes Screenin g [facility] Start: 12-28-2027 PROSTATE CANCER SCRE ENING DISCUSSION PROSTATE CANCER SCREENING DISCUSSION [facility] Start: 12-28-2027 Prostate specific an tigen measurement Prostate Cancer Screening Discussion [facility] Start: 08-07-2027 Lipid 1996 panel - S hesham or Plasma Lipid Screening [facility] Start: 08-07-2027 Lipid panel Lipid Screening [facility] Start: 08-07-2027 LIPID SCREEN LIPID SCREEN [facility] Start: 08-07-2027 PROSTATE CANCER SCRE ENING DISCUSSION PROSTATE CANCER SCREENING DISCUSSION [facility] Start: 04-20-2027 Diabetes Screening Diabetes Screenin [facility] Start: 04-01-2027 LIPID SCREEN LIPID SCREEN [facility] Start: 01-01-2027 PROSTATE CANCER SCRE ENING DISCUSSION PROSTATE CANCER SCREENING DISCUSSION [facility] Start: 04-05-2026 End: 04-05-2026 Patient encounter procedure 04/05/2026 8:00 AM EDT Office Visit Cardiology [address] [place] [address] [place] [address] [place] [address] yearly follow up Cardiology Comment on above: yearly follow up Start: 10-17-2025 DIABETES SCREEN DIABETES SCREEN [facility] Start: 10-17-2025 Diabetes Screening Diabetes Screenin g [facility] Start: 08-07-2025 DIABETES SCREEN DIABETES SCREEN [facility] Start: 06-13-2025 End: 06-13-2025 Patient encounter procedure 06/13/2025 10:30 AM EDT Office Visit Cardiology [address] [place], [place] [id number] PAF (paroxysmal atrial fibrillation) (HCC) [I48.0] Cardiology Comment on above: PAF (paroxysmal atri al fibrillation) (HCC) [I48.0] Start: 05-13-2025 [facility] Start: 05-12-2025 [facility] Start: 04-25-2025 Influenza vaccination [facility] Start: 04-04-2025 End: 04-04-2025 Patient encounter procedure 04/04/2025 2:30 PM EDT Office Visit Cardiology [address] [place] [address] [place] [address] [place] [address] Return in about 6 months (around 03/21/2025) for Please schedule appt with Dr. Tuttle in 6 months. Cardiology Comment on above: Return in about 6 mo nths (around 03/21/2025) for Please schedule appt with Dr. Tuttle in 6 months. Start: 04-01-2025 DIABETES SCREEN DIABETES SCREEN [facility] Start: 03-01-2025 End: 03-01-2025 Patient encounter procedure [facility] Comment on above: Arrived Start: 02-10-2025 [facility] Start: 02-08-2025 End: 02-08-2025 Patient encounter procedure 02/08/2025 4:00 PM EDT Office Visit [facility] [address] [facility] [address] [place] [address] Linda Jansen PA [address] [place] [address] [place] [address] [facility] Start: 12-09-2024 End: 12-09-2024 Patient encounter procedure 12/09/2024 3:45 PM EDT Office Visit [facility] [address] [place] [phone] Eulalio Irby DO [address] [place] [address] Arrived [facility] Comment on above: Arrived Start: 12-03-2024 DIABETES SCREEN DIABETES SCREEN [facility] Start: 10-28-2024 End: 10-28-2024 Patient encounter procedure 10/28/2024 3:45 PM EST Office Visit [facility] [address] [place] [phone] Eulalio Irby, DO [address] [place] [address] [facility] Start: 10-22-2024 DIABETES SCREEN DIABETES SCREEN [facility] Start: 09-30-2024 End: 09-30-2024 Patient encounter procedure 09/30/2024 3:30 PM EST Office Visit [facility] [address] [place] [phone] Eulalio Irby, DO [address] [place] [address] [facility] Start: 2024 Advance Directive Discussion Advance Directive Discussion [facility] Start: 2024 Pneumococcal Vaccine : 65+ Years (1 of 1 - PCV) Pneumococcal Vaccine: 65+ Years (1 of 1 - PCV) [facility] Start: 08-24-2024 End: 08-24-2024 [facility] Comment on above: Arrived Start: 08-03-2024 End: 07-27-2025 CBC W Auto Differential panel - Blood CBC auto differential Lab Routine Pre-op testing Expected: 08/03/2024 (Approximate), Expires: 07/27/2025 [facility] Work Phone: Comment on above: Expected: 08/03/2024 (Approximate), Expires: 07/27/2025 Start: 08-03-2024 End: 07-27-2025 Comprehensive metabolic 2000 panel - Serum or Plasma Comprehensive metabolic panel Lab Routine Pre-op testing Expected: 08/03/2024 (Approximate), Expires: 07/27/2025 [facility] Comment on above: Expected: 08/03/2024 (Approximate), Expires: 07/27/2025 Start: 07-30-2024 End: 07-30-2024 Professional / ancillary services management 07/30/2024 3:30 PM EST Ancillary Procedure [facility] [address] [facility] [address] [place] [address] [facility] Start: 07-30-2024 End: 07-30-2024 Patient encounter procedure 07/30/2024 3:00 PM EST Office Visit Cardiology [address] [place] [address] [place] [address] [place] [address] 6 month follow up Cardiology Comment on above: 6 month follow up Start: 07-27-2024 End: 07-27-2024 Patient encounter procedure 07/27/2024 3:30 PM EST Office Visit [facility] [address] [place] [address] Eulalio Irby DO [address] [place] [address] Arrived [facility] Comment on above: Arrived Start: 07-27-2024 End: 07-27-2025 ECG 12 lead ECG 12 lead ECG Routine Pre-op testing Expected: 07/27/2024 (Approximate), Expires: 07/27/2025 [facility] Comment on above: Expected: 07/27/2024 (Approximate), Expires: 07/27/2025 Start: 06-25-2024 End: 06-25-2025 XR Thoracic spine 3 Views XR thoracic spine 3 views Imaging Routine Strain of thoracic back region Muscle spasm Expected: 06/25/2024, Expires: 06/25/2025 [facility] Work Phone: Comment on above: Expected: 06/25/2024 , Expires: 06/25/2025 Start: 06-15-2024 End: 06-15-2024 Patient encounter procedure [facility] Comment on above: Arrived Start: 06-11-2024 End: 06-11-2024 Patient encounter procedure 06/11/2024 12:00 PM EDT Office [facility] [address] [facility] [address] [place] [phone] Grace Bucio MD [address] [facility] [address] [place] [address] [facility] Start: 06-10-2024 End: 06-10-2024 Patient encounter procedure 06/10/2024 4:30 PM EDT Office Visit [facility] [address] [place] [address] [place] [address] Sedrick Trotter, ALCOHOL LAW ENFORCEMENT AGENT [address] [place] [address] Arrived [facility] Comment on above: Arrived Start: 06-02-2024 End: 06-02-2024 Patient encounter procedure 06/02/2024 2:30 PM EDT Procedure Visit [facility] Grace Bucio MD [address] [place] [address] [facility] Start: 05-21-2024 End: 05-21-2024 Patient encounter procedure 05/21/2024 12:00 PM EDT Consult [facility] [address] [facility] [address] [place] [phone] Grace Bucio MD [address] [place] [address] [facility] Start: 05-04-2024 End: 05-04-2024 Patient encounter procedure 05/04/2024 3:00 PM EDT Consult [facility] [address] [facility] [address] [place] [phone] Grace Bucio MD [address] [facility] [address] [place] [address] [facility] Start: 04-25-2024 Covid-19 Vaccine ( season) Covid-19 Vaccine ( season) [facility] Start: 04-25-2024 Influenza vaccination [facility] Start: 01-30-2024 End: 01-30-2024 Patient encounter procedure 01/30/2024 3:00 PM EDT Office Visit Cardiology [address] [place] [address] [place] [address] [place] [address] Return in about 6 months (around 01/30/2024). Cardiology Comment on above: Return in about 6 mo nths (around 01/30/2024). Start: 08-25-2023 Behavioral Health Screening Behavioral Health Screening [facility] Start: 08-25-2023 Depression Assessment Depression Ass essment [facility] Start: 04-25-2023 Covid-19 Vaccine () Covid-19 Vaccine () [facility] Start: 04-25-2023 Influenza vaccination [facility] Start: 12-20-2022 BP CONTROLLED (<130/80) BP CONTROLLE D (<130/80) [facility] Start: 09-24-2022 BP CONTROLLED (<130/80) BP CONTROLLE D (<130/80) [facility] Start: 08-25-2022 DEPRESSION ASSESSMENT DEPRESSION ASS ESSMENT [facility] Start: 04-25-[address] [facility] Start: 03-28-2022 End: 05-28-2022 Comprehensive metabolic 2000 panel - Serum or Plasma COMP METABOLIC PANEL Lab Routine Atherosclerosis Expected: 03/28/2022, Expires: 05/28/2022 [facility] Work Phone: Comment on above: Expected: 03/28/2022 , Expires: 05/28/2022 Start: 03-28-2022 End: 05-28-2022 Lipid 1996 panel - Serum or Plasma LIPID PANEL BASIC Lab Routine Atherosclerosis Expected: 03/28/2022, Expires: 05/28/2022 [facility] Work Phone: Comment on above: Expected: 03/28/2022 , Expires: 05/28/2022 Start: 03-13-2022 End: 01-11-2023 Ct heart contrast eval cardiac structure&morph CT PULMONARY VEIN W IVCON Radiology Routine Persistent atrial fibrillation (HCC) Expected: 03/13/2022, Expires: 01/11/2023 [facility] Work Phone: Comment on above: Expected: 03/13/2022 , Expires: 01/11/2023 Start: 12-12-2021 End: 12-12-2022 ECG COMPLETE ECG COMPLETE ECG Routine Persistent atrial fibrillation (HCC) Expected: 12/12/2021, Expires: 12/12/2022 [facility] Work Phone: Comment on above: Expected: 12/12/2021 , Expires: 12/12/2022 Start: 11-08-2021 FUV, Provider: Tera Davison, Status: Pen, Time: 3:10 PM FUV, Provider: Tera Davison, Status: Pen, Time: 3:10 PM [facility] [facility] DO Work Phone: Start: 09-12-2021 EKG, Provider: STANISLAV RAMIREZ FREELANCE DIGITAL PROJECT MANAGER 1,[id number], Status: Pen, Time: 1:30 PM EKG, Provider: STANISLAV RAMIREZ FREELANCE DIGITAL PROJECT MANAGER 1,[id number], Status: Pen, Time: 1:30 PM [facility] 250 DO Work Phone: Start: 08-29-2021 SURGNONUH, Provider: Tera Davison, Status: Pen, Time: 10:00 AM SURGNON, Provider: Tera Davison, Status: Pen, Time: 10:00 AM [facility] Work Phone: Start: 08-25-2021 DEPRESSION ASSESSMENT DEPRESSION ASS [facility] Start: 07-25-2021 SURGNONUH, Provider: Tera Davison, Status: Pen, Time: 9:00 AM SURGNONUH, Provider: Tera Davison, Status: Pen, Time: 9:00 AM -[facility] 250 DO Work Phone: Start: 2019 RSV Vaccine (1 - 1-d ose 60+ series) RSV Vaccine (1 - 1-dose 60+ series) [facility] Start: 2014 PROSTATE CANCER SCRE ENING DISCUSSION PROSTATE CANCER SCREENING DISCUSSION [facility] Start: 2009 Pneumococcal Vaccine : 50+ (1 of 1 - PCV) Pneumococcal Vaccine: 50+ (1 of 1 - PCV) [facility] Start: 2009 Pneumococcal Vaccine : 65+ Years (1 of 1 - PCV) Pneumococcal Vaccine: 65+ Years (1 of 1 - PCV) [facility] Start: 2009 SHINGRIX VACCINE (1 of 2) READ GRIX VACCINE (1 of 2) [facility] Start: 2004 COLOGUARD (FIT-DNA) COLOGUARD (FIT-D NA) [facility] Start: 2004 Colonoscopy COLONOSCOPY [facility] Start: 2004 COLORECTAL CANCER SCREENING COLORECTAL CANCER SCREENING [facility] Start: [address] COLONOGRAPHY [facility] Start: 2004 FECAL OCCULT BLOOD FECAL OCCULT BLOO D [facility] Start: 2004 Screening for malign ant neoplasm of colon [facility] Start: 2004 SIGMOIDOSCOPY SIGMOIDOSCOPY [facility] Start: 1994 LIPID SCREEN LIPID SCREEN [facility] Start: 1978 Urine microalbumin profile [facility] Start: 1977 ANNUAL PCP TEAM COMMERCIAL AIRLINE PILOT ABDIAZIZ DISEASE VISIT ANNUAL PCP TEAM CHRONIC DISEASE VISIT [facility] Start: 1977 Anxiety Screening Anxiety Screening [facility] Start: 1977 BP CONTROLLED (<130/80) BP CONTROLLE D (<130/80) [facility] Start: 1977 Depression Screening Depression Scre ening [facility] Start: 1977 HEPATITIS C SCREENING HEPATITIS C [facility] Start: 1977 Hepatitis C screening Hepatitis C [facility] Start: 1977 HIV SCREENING HIV SCREENING [facility] Start: 1977 HIV screening HIV Screening [facility] Start: 1971 Adult depression screening assessment DEPRESSION SCREENING [facility] Start: 1964 COVID-19 VACCINE (#1) COVID-19 VACCI NE (#1) [facility] Start: 1964 COVID-19 VACCINE (1) COVID-19 VACCIN E (1) [facility] Start: 03-20-1960 COVID-19 VACCINE (#1) COVID-19 VACCI NE (#1) [facility] Start: 1959 Screening for malign ant neoplasm of colon [facility] 25-hydroxyvitamin D3 [Mass/volume] in Serum or Plasma Vitamin D 25 hydroxy Total Lab Routine Wellness examination Muscle cramping Ordered: 03/01/2025 [facility] Comment on above: Ordered: 03/01/2025 Mjff-1-[place] [Mass/volume] in Serum or Plasma [facility] Bone marrow sampling [facility] CBC W Auto Different ial panel - Blood CBC auto differential Lab Routine 04/20/2024 6:07 AM EDT [facility] Work Phone: CBC W Auto Different ial panel - Blood CBC auto differential Lab Routine 01/13/2025 7:10 AM EDT [facility] Work Phone: CBC W Auto Different ial panel - Blood CBC auto differential Lab Routine 02/10/2025 9:15 AM EDT [facility] Work Phone: CBC W Auto Different ial panel - Blood CBC auto differential Lab Routine 05/12/2025 9:36 AM EDT [facility] Work Phone: Comprehensive metabo lic 1999 panel - Serum or Plasma [facility] Comprehensive metabo lic 1999 panel - Serum or Plasma [facility] Comprehensive metabo lic 1999 panel - Serum or Plasma [facility] Comprehensive metabo lic 1999 panel - Serum or Plasma Comprehensive metabolic panel Lab Routine 05/12/2025 9:36 AM EDT [facility] Work Phone: Comprehensive metabo lic 1999 panel - Serum or Plasma [facility] End: 08-01-2023 ECG COMPLETE ECG COMPLETE ECG Routine Atrial fibrillation, persistent (HCC) 1 Occurrences starting 08/01/2022 until 08/01/2023 [facility] Work Phone: Comment on above: 1 Occurrences starti ng 08/01/2022 until 08/01/2023 ECG COMPLETE ECG COMPLETE ECG 08/01/2022 2:00 PM EST [facility] End: 12-12-2022 Echocardiography ECHO Cardiology Routine Persistent atrial fibrillation (HCC) 1 Occurrences starting 12/12/2021 until 12/12/2022 [facility] Work Phone: Comment on above: 1 Occurrences starti ng 12/12/2021 until 12/12/2022 End: 04-04-2026 Echocardiography ECHO Cardiology Routine PAF (paroxysmal atrial fibrillation) (HCC) 1 Occurrences starting 04/04/2025 until 04/04/2026 [facility] Work Phone: Comment on above: 1 Occurrences starti ng 04/04/2025 until 04/04/2026 Ferritin [Mass/volum e] in Serum or Plasma Ferritin Lab Routine 04/23/2024 3:51 PM EDT [facility] FREE K+L LT CHAINS, QN, S FREE K +L LT CHAINS, QN, S Lab Routine 02/10/2025 9:15 AM EDT [facility] Haptoglobin [Mass/vo lume] in Serum or Plasma [facility] Hemoglobin A1c/Hemoglobin.total in Blood Hemoglobin A1c Lab Routine Muscle cramping Wellness examination IFG (impaired fasting glucose) Ordered: 03/01/2025 [facility] Comment on above: Ordered: 03/01/2025 Iron and Iron bindin g capacity panel - Serum or Plasma Iron and TIBC Lab Routine 04/23/2024 3:51 PM EDT [facility] Work Phone: Iron and Iron bindin g capacity panel - Serum or Plasma Iron and TIBC Lab Routine 05/12/2025 9:36 AM EDT [facility] Lipid 1996 panel - S hesham or Plasma Lipid panel Lab Routine Wellness examination Primary hypertension Ordered: 03/01/2025 [facility] Comment on above: Ordered: 03/01/2025 Patient Education Count Includes [facility] Bone Marrow Aspiration or Biopsy Know your Meds [facility] Work Phone: Patient referral [facility] Work Phone: Prostate specific Ag [Mass/volume] in Serum or Plasma PSA Lab Routine Wellness examination Screening for malignant neoplasm of prostate Ordered: 03/01/2025 [facility] Comment on above: Ordered: 03/01/2025 Protein electrophore sis, serum Protein electrophoresis, serum Lab Routine 02/10/2025 9:15 AM EDT [facility] Work Phone: TSH W/REFLEX TO FT4 TSH W/REFLEX TO FT4 Lab Routine Muscle cramping Wellness examination Ordered: 03/01/2025 [facility] Work Phone: Comment on above: Ordered: 03/01/2025 VIT. B12/FOLATE PROFILE VIT. B12 /FOLATE PROFILE Lab Routine 04/23/2024 3:51 PM EDT [facility] Immunizations Immunization Date Immunization Notes Care Provider [facility] 07-20-2022 influenza, injectabl e, quadrivalent, preservative free Christian Breanna DO Work Phone: [facility] 07-20-2022 influenza virus vaccine, unspecified formulation Bill Tuttle MD Work Phone: [facility] 06-10-2019 influenza, injectabl e, quadrivalent, preservative free Sedrick Ye Work Phone: [facility] 05-25-2019 influenza, seasonal, injectable Sedrick Ye Work Phone: [place] [address] DO Work Phone: 06-10-2018 influenza, injectabl e, quadrivalent, preservative free Sedrick Ye Work Phone: [facility] 01-29-2005 hepatitis B vaccine, adult dosage Sedrick Ye Work Phone: [facility] 08-28-2004 hepatitis B vaccine, adult dosage Sedrick Ye Work Phone: [facility] 07-24-2004 hepatitis B vaccine, adult dosage Sedrick Ye Work Phone: [facility] Payers Date Payer Category Payer Self-pay [id number] 2024 Medicare [id number] 2024 Unknown [id number] 2022 Private Health Insurance [id number]. [id number] 2020 Unknown 2020 Unknown MMO MMO [employer] [id number] 2020-Present [phone] [address] [address] [place] [address] Indemnity [id number]. [id number] 2020 Unknown [id number] 2019 Unknown [id number] 1959 Unknown [id number] 2.16.840.1.926758.3.579.2. 593 1959 Unknown [id number] .16.840.1.290511.3.579.2. 593 1959 Unknown [id number] 2.16.840.1.792763.3.579.2. 593 1959 Unknown [id number] 2.16.840.1.173017.3.579.2. 593 1959 Unknown [id number] 2.16.840.1.658228.3.579.2. 159 1959 Unknown [id number] 2.16.840.1.458350.3.579.2. 727 1959 Unknown [id number] 2.16.840.1.947914.3.579.2. 727 1959 Unknown [id number] 2.16.840.1.848681.3.579.2. 727 1959 Unknown [id number] 2.16.840.1.853940.3.579.2. 727 1959 Unknown [id number] 2.16.840.1.212029.3.579.2. 9 1959 Unknown [id number] 2.16.840.1.836501.3.579.2. 9 1959 Unknown [id number] 2.16.840.1.072654.3.579.2. 1258 1959 Unknown [id number] 2.16.840.1.620231.3.579.2. 9 1959 Unknown [id number] 2.16.840.1.972813.3.579.2. 1258 1959 Unknown [id number] 2.16.840.1.130700.3.579.2. 1259 1959 Unknown [id number] 2.16.840.1.824209.3.579.2. 1258 1959 Unknown [id number] 2.16.840.1.472388.3.579.2. 1259 1959 Unknown [id number] 2.16.840.1.837417.3.579.2. 1258 1959 Unknown [id number] 2.16.840.1.982618.3.579.2. 9 1959 Unknown [id number] 2.16.840.1.974346.3.579.2. 1258 1959 Unknown [id number] 2.16.840.1.631640.3.579.2. 1259 1959 Unknown [id number] 2.16.840.1.309243.3.579.2. 9 1959 Unknown [id number] 2.16.840.1.043648.3.579.2. 9 1959 Unknown [id number] 2.16.840.1.461837.3.579.2. 1258 1959 Unknown [id number] 2.16.840.1.380721.3.579.2. 1258 1959 Unknown [id number] 2.16.840.1.126116.3.579.2. 1258 1959 Unknown [id number] 2.16.840.1.755778.3.579.2. 9 1959 Self-pay [id number] 1959 Worker's Compensation [id number] Unknown [id number] 2.16.840.1.458210.3.579.2. 593 Unknown [id number] 2.16.840.1.217740.3.579.2. 531 Unknown [id number] 2.16.840.1.704436.3.579.2. 531 Unknown [id number] 2.16.840.1.033676.3.579.2. 531 Unknown [id number] 2.16.840.1.529686.3.579.2. 531 Social History Date Type Detail Facility Start: 01-17-2023 End: 08-06-2023 Consumes alcohol occasionally Consumes alcohol occasionally [facility] Comment on above: COFFEE ONCE IN A WHI LE; occasionally; Start: 08-27-2021 End: 02-19-2025 Tobacco smoking status NHIS Never smoked tobacco [facility] Start: 1960 Sex Assigned At Not on file [facility] Start: 11-09-2021 End: 04-05-2022 Exposure to SARS-CoV-2 (event) Not sure [facility] Start: 08-27-2021 End: 08-06-2023 Tobacco use and exposure Smokeless tobacco non-user [facility] Start: 12-03-2021 End: 09-21-2024 Alcohol intake Ex-drinker (finding) [facility] Start: 12-25-2021 End: 01-04-2022 Exposure to SARS-CoV-2 (event) Unable to assess [facility] Work Phone: Start: 01-17-2023 End: 08-06-2023 Tobacco use panel [facility] Start: 06-01-2021 National Score (1-10 0), lower number is lower risk 87 [facility] Start: 1960 Sex Assigned At Male F [facility] Start: 06-09-2024 End: 03-01-2025 Alcoholic beverage intake Current drinker of alcohol (finding) [facility] Within the last year , have you been afraid of your partner or ex-partner? No [facility] Do you belong to any clubs or organizations such as lutheran groups, [employer], edulio or athletic groups, or school groups? Yes [...] Only a little [facility] (I/We) worried wheth er (my/our) food would run out before (I/we) got money to buy more. Never true [facility] Start: 08-06-2023 Alcohol Comment Caffeine intak e: 1-2 cups per day [facility] Start: 12-07-2024 End: 01-21-2025 Sex Male (finding) [facility] Hospital Functional Status Date Assessment Result Facility 03-01-2025 Patient Health [facility] ionnaire 2 item (PHQ-2) [Reported] [facility] 12-04-2021 Are you deaf, or do you have serious difficulty hearing No 12/04/2021 11:08 AM Jose Teixeira RN No [facility] 12-04-2021 Are you blind, or do you have serious difficulty seeing, even when wearing glasses No 12/04/2021 11:08 AM Jose Teixeira RN No [facility] 12-04-2021 Do you have serious difficulty walking or climbing stairs No 12/04/2021 11:08 AM Jose Teixeira RN No [facility] 12-04-2021 Do you have difficul ty dressing or bathing No 12/04/2021 11:08 AM Jose Teixeira RN No [facility] 12-04-2021 Because of a physica l, mental, or emotional condition, do you have difficulty doing errands alone such as visiting a physician's office or shopping No 12/04/2021 11:08 AM Jose Teixeira RN No [facility] Mental Status Date Assessment Result Facility 12-04-2021 Because of a physica l, mental, or emotional condition, do you have serious difficulty concentrating, remembering, or making decisions No 12/04/2021 11:08 AM Jose Teixeira RN [facility] Clinical Notes 11-30-2021 to 05-06-2025 Note Date & Type Note Facility 05-06-2025 Progress note Note Date/Time May 06, 2025 4:02pm [facility] [place] [address] Cancer Center Note Signed Patient: Darius Valera MR#: [id number] : 1960 Acct:[id number] Age/Sex: 64 / M Type: [facility] Date of Service: Copies to: Linda Jansen PA-C~ Assessment & Plan CHEMO PLAN No Active Chemotherapy History of Present Illness HPI got labs at [facility]. his called us this morning to make sure we got his labs sooner. She notes he has been a bit yellow. He notes more exhausted than normaland yellowy skin and eyes. She notes promenent microvasculature on his hands, doesnt look like a rash. fatigue is overwhelming, full faster than normal. He has dark urine. Dizzy when going up the stairs. i called him on phone. will start prednisone 80mg daily. check cbc, cmp, haptoglobin, cooombs type and scrreen, b12, folate, iron studies next friday. also start 1mg daily folic acid. check cbc, cmp, haptoglobin, type and screen next in anticipation of /fu with me as scheduled friday. check US spleen. Intake Intake Visit Reasons: moved up triage 05/05 Allergies No Known Allergies Allergy (Verified 02/19/25 09:38) [facility] Medical History Medical History Lymphocytosis Kidney stone March 2023-removed History of torn meniscus of right knee DMITRY on CPAP Problem List clean-up per request of Phys. [facility] A-fib Problem List clean-up per request of Phys. [facility]HR [facility] Hypertension Problem List clean-up per request of Phys. [facility] Surgical History Surgical History History of surgery on right wrist excision of mass right wrist 07/14/2020 H/O cardiac radiofrequency ablation History of vasectomy Problem List clean-up per request of Phys. [facility] Family History Family History Father Bruington disease Father Mother Cancer Endometrial Cancer Grandparent Pancreatic cancer Social History Social History (Updated 02/19/25 @ 09:39 by Jose Garcia CMA) Smoking status: Never smoker Nicotine containing products detail: Smokeless tobacco NO Second hand tobacco smoke exposure: No Within the past year, how often did you have a drink containing alcohol: monthly or less Within the past year, how many standard drinks containing alcohol did you have on a typical day: 1 or 2 Within the past year, how often did you have six or more drinks on one occasion: never AUDIT-C Alcohol total score: 1 AUDIT-C Alcohol score interpretation: A score less than 4 is consistent with normal alcohol consumption. In the past 12 months, have you used illegal drugs or prescription drugs for non-medical reasons?: No Dictated By: Christian Carlos II, DO DD/ [id number] Signed By: <Electronically signed by Christian Carlos II, DO> 05/06/25 1602 [facility] Work Phone: 1(492) 303-348109-12-2025 [facility] [place] [id number] Cancer Center Note Signed Patient: Darius Valera MR#: [id number] : 1960 Acct:[id number] Age/Sex: 64 / M Type: [facility] Date of Service: Copies to: Linda Jansen PA-C~ Assessment & Plan CHEMO PLAN No Active Chemotherapy History of Present Illness HPI got labs at [facility]. his called us this morning to make sure we got his labs sooner. She notes hehas been a bit yellow. He notes more exhausted than normaland yellowy skin and eyes. She notes promenent microvasculature on his hands, doesnt look like a rash. fatigue is overwhelming, full faster than normal. He has dark urine. Dizzy when going up the stairs. i called him on phone. will start prednisone 80mg daily. check cbc, cmp, haptoglobin, cooombs type and scrreen, b12, folate, iron studies next friday. also start 1mg daily folic acid. check cbc, cmp, haptoglobin, type and screen next in anticipation of /fu with me as scheduled friday. check US spleen. Intake Intake Visit Reasons: moved up triage 05/05 Allergies No Known Allergies Allergy (Verified 02/19/25 09:38) [facility] Medical History Medical History Lymphocytosis Kidney stone March 2023-removed History of torn meniscus of right knee DMITRY on CPAP Problem List clean-up per request of Phys. [facility] A-fib Problem List clean-up per request of Phys. E[facility] Hypertension Problem List clean-up per request of Phys. [facility] Surgical History Surgical History History of surgery on right wrist excision of mass right wrist 07/14/2020 H/O cardiac radiofrequency ablation History of vasectomy Problem List clean-up per request of Phys. [facility] Family History Family History Father Bruington disease Father Mother Cancer Endometrial Cancer Grandparent Pancreatic cancer Social History Social History (Updated 02/19/25 @ 09:39 by Jose Garcia [facility]) Smoking status: Never smoker Nicotine containing products detail: Smokeless tobacco NO Second hand tobacco smoke exposure: No Within the past year, how often did you have a drink containing alcohol: monthly or less Within the past year, how many standard drinks containing alcohol did you have on a typical day: 1 or 2 Within the past year, how often did you have six or more drinks on one occasion: never AUDIT-C Alcohol total score: 1 AUDIT-C Alcohol score interpretation: A score less than 4 is consistent with normal alcohol consumption. In the past 12 months, have you used illegal drugs or prescription drugs for non-medical reasons?: No Dictated By: Christian Carlos II, DO DD/ 1557 Signed By: 05/06/25 1602 [facility]08-11-2025 History of Present illness Narrative * Ita Tuttle MD - 04/04/2025 2:31 PM EDT Images from the original note were not included. [facility] [place] [facility] Department of Cardiovascular Medicine [facility] OUTPATIENT VISIT DATE April 04, 2025 OUTPATIENT VISIT TYPE ESTABLISHED HISTORY OF PRESENT ILLNESS: Darius Valera is a (an) 64 year old year old male who is here today for follow- up. Was diagnosed with CLL. Since last visit [...] male here today for follow up from [place], [place]. Has h/o AF s/p ablation, HTN, DMITRY, tachycardia induced CMP, and CHF. On Eliquis, Nifedipine XL, Valsartan/HCTZ added on Doxazosin. Doxazocin increased to 2 mg but has been using only 1 mg daily. Continue to have BP spikes above 150s. Sotalol was discontinued. He followed before with a local registrar [facility] Dr Hooks. Since last visit denies chest [...] rare (<1.0%). Isolated VEs were occasional (1.4%, [id number]), VE Couplets were rare (<1.0%, 56), and [...] Bystolic - S/p DCC by his local [facility] (Dr Castle) and subsequent ablation by EP (Dr Sena). - Negative outside stress EKG for ischemia 03/22/2020 - Update echo - May use one supplemental Mg OTC daily to try for leg cramps - Most recent renal fx reviewed This note was partially generated using The [employer] voice recognition system, and there may be some incorrect words, spellings, and punctuation that were not noted in checking the note before saving. Someelements copied from my previous notes which have been updated as appropriate and reflect current medical decision making from today Bill Tuttle M.D., F.Jojo.CAmbrosio CONTACT INFORMATION: Shelbi Tuttle M.D., Miguel. Pneumatic Tube Fitter Clinical tax assessor [facility] Staff Recreation Adviser Timothy Hdz [facility] Mail Code [id number] [facility] [place] [place] [address] CC: To use this Smartlink, specify the [...] medications for this visit. documented in this encounterM[facility]25 Telephone encounter Note * Telephone Encounter - DOROTHEA Liang - 03/17/2025 1:21 PM EDT My Chart Message. [facility] [id number] Miscellaneous Notes* Telephone Encounter - DOROTHEA Liang - 03/17/2025 1:21 PM EDT My Chart Message. documented in this encounterLiberty [id number] History of Present illness Narrative* DOROTHEA Liang - 03/01/2025 9:30 AM EDT Images from the original [...] Take before meals.Do not crush, chew, or split. sildenafil (Viagra) [...] Will continue to monitor at home with discontinuationof hydrochlorothiazide. Contact office with any concerns. Goal BP remains less than 130/80. Obstructive sleep apnea syndrome Patient is compliant with CPAP usage and perceives benefit from treatment. Treatment has been effective in controlling the patient's symptoms of Sleep Apnea. Will continue to monitor with routine follow up appointments. Lymphocytosis The patient is seeing a medical laboratory technologist for this condition, treatment is deferred to that specialist. Correspondence from that specialist and any available testing were reviewed during today's visit. Arteriosclerotic vascular disease The patient is seeing a medical laboratory technologist for this condition, treatment is deferred [...] H/o with no current complaints. Other thrombophilia ([facility]) The patient is seeing a medical laboratory technologist for this condition, treatment is deferred to that specialist. Correspondence from that specialist and any available testing were reviewed during today's visit. Thoracic aortic ectasia The patient is seeing a medical laboratory technologist for this condition, treatment is deferred to that specialist. Correspondence from that specialist and any available testing were reviewed during today's visit. History of colon polyps Will continue to monitor with routine screenings. PONV (postoperative nausea and vomiting) H/o, pt will need to inform anesthesia should he have any additional surgeries. IFG (impaired fasting glucose) - Hemoglobin A1c Will check U1memcn upcoming fasting labs. Screening for malignant neoplasm of prostate - PSA Will check PSA with upcoming fasting labs. Follow up for Medicare Wellness Visit. documented in this encounterLiberty HospitalFagtboqxcn83-58-0614 Evaluation note* Diagnosis Onset Date Resolution Status Admit Date Contact dermatitis acute January 242024 9:18am [facility] Work Phone: 1(498) 978-411805-12-2025 Telephone encounter Note* Telephone Encounter - Fabiola [...] 04/01/2022 0.98 0.73 - 1.22 mg/dL Final [facility]05-12-2025 Miscellaneous Notes* Telephone Encounter - Fabiola [...] - 1.22 mg/dL Final documented in this encounterMckitrick Hospital04-17-2025 History of Present illness Narrative* Eulalio Irby, - 12/09/2024 3:45 PM EDT Images from the original note were not included. @ENCDATE@ Darius Chan Rl is a 64 y.o. 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 Apply ice to the knee for [...] note was created using voice recognition through [employer] artificial [employer]. documented in this encounterLiberty HospitalCmglnjpjxw91-95-5008 History of Present illness Narrative* JUS Caraballo [...] the original note were not included. @ENCDATE@ [facility] Rl is a 64 y.o. male who [...] applying ice to the affected area ni sara after work, which provided relief until the [...] Past Surgical History: Procedure Laterality Date COLONOSCOPY 2018 COLONOSCOPY 2013 KNEE ARTHROSCOPY W/ DEBRIDEMENT Right 08/13/2024 JAEsther REVIEW OF SYMPTOMS: The review of systems, [...] hour before bedtime. He can continue taking [place] if needed, but not at the same [...] note was created using voice recognition through [employer]. documented in this encounterLiberty HospitalXhszkqgkyw83-02-7059 Telephone encounter Note* Telephone Encounter - Bria [...] 04/01/2022 0.98 0.73 - 1.22 mg/dL Final [facility]02-04-2025 Miscellaneous Notes* Telephone Encounter - Bria [...] - 1.22 mg/dL Final documented in this encounterMckitrick Hospital01-28-2025 Instructions* Patient Instructions* Tony Armstrong PA-C - 09/21/2024 4:57 PM EST Please schedule appt with Dr. Tuttle in 6 months documented in this encounterMckitrick Hospital01-28-2025 History of Present illness Narrative* Tony Armstrong PA-C - 09/21/2024 4:30 PM EST Images from the original note were not included. [facility] [place] [facility] Department of Cardiovascular Medicine SECTION [...] rare (<1.0%). Isolated VEs were occasional (1.4%, 90631), VE Couplets were rare (<1.0%, 56), and [...] months CONTACT INFORMATION: Tony Armstrong PA-C Cardiology [address] [facility] [address] Dept: [phone] Dept documented in this encounterMckitrick Hospital01-28-2025 NoteHNO ID: [id number] Author: TONY ARMSTRONG PA-C Service: ? Author Type: Physician Pneumatic Tube Fitter Type: Progress Notes Filed: 09/21/2024 17:03 Note Text: [facility] [place] [facility] Department of Cardiovascular Medicine SECTION [...] rare (<1.0%). Isolated VEs were occasional (1.4%, 06364), VE Couplets were rare (<1.0%, 56), and [...] months CONTACT INFORMATION: Tony Armstrong PA-C Cardiology [id number] [facility] [address] Dept: [phone] Dept [facility] History of Present illness Narrative* DOROTHEA Liang [...] No follow-ups on file. documented in this encounterLiberty HospitalUtugciiiky90-66-9717 History of Present illness Narrative* Eulalio Uribe Mahamed, DO - 08/24/2024 11:15 AM EST Images from the original note were not included. @ROSIE@ Darius Valera is a 63 y.o. male [...] note was created using voice recognition through [employer]. documented in this encounterLiberty HospitalZebriyzqrk93-15-0099 History of Present illness Narrative* Eulalio Irby DO - 07/27/2024 3:30 PM EST Images from the original note were not included. @ROSIE@ Darius Valera is a 63 y.o. male [...] He also mentions a recent fall in [facility], where he tripped on a sidewalk and landed on his elbow, shoulder, and knee. Following this incident, he noticed swelling in his hands, which has since improved. He went to the urgent care in [place] for evaluation the following day. Xrays of [...] Past Surgical History: Procedure Laterality Date COLONOSCOPY 2018 COLONOSCOPY 2013 FAMILY HISTORY: Family History Problem [...] note was created using voice recognition through [employer] artificial [employer]. documented in this encounterLiberty HospitalEnfgcrhcoc35-61-8222 Telephone encounter Note* Telephone Encounter - Bria [...] 04/01/2022 0.98 0.73 - 1.22 mg/dL Final [facility]11-06-2024 Miscellaneous Notes* Telephone Encounter - Bria [...] - 1.22 mg/dL Final documented in this encounterMckit[facility] Hospital11-05-2024 Telephone encounter Note * Telephone Encounter - DOROTHEA Liang - 06/29/2024 4:06 PM EST My Chart message sent. [facility] HospitalHjnwtrltqi24-43-4095 Miscellaneous Notes* Telephone Encounter - DOROTHEA Liang - 06/29/2024 4:06 PM EST My Chart message sent. documented in this encounterLiberty HospitalQryhysrfbx27-28-2106 Telephone encounter Note* Telephone Encounter - DOROTHEA Liang - 06/28/2024 10:41 AM EST Message sent through [employer] [facility] HospitalPoujrbnmvu12-50-3216 Miscellaneous Notes* Telephone Encounter - DOROTHEA Liang - 06/28/2024 10:41 AM EST Message sent through [employer] * Telephone Encounter - Kayla Rose LPN - 06/25/2024 12:28 PM EDT Attempted to call patient multiple times and call will not go through. Xray order has been sent to [facility] so he can go get that done at his convenience and PT will contact him to schedule. * Telephone Encounter - DOROTHEA Liang - 06/25/2024 12:08 PM EDT Ok to send order for x-rays to [facility]. Please let pt know that x-rays have been ordered and a PT referral was sent for him also. * Telephone Encounter - Kayla Rose LPN - 06/25/2024 11:51 AM EDT Pt called stating he saw Sedrick Trotter on 06/10 and was diagnosed with stain of thoracic spine and muscle spasm, rx'd Prednisone, Tizanidine. States it is not really helping and was ?'ing if you could order either an x-ray or PT. X-ray he would like to have done at [facility] if you do order. documented in this encounterLiberty HospitalRrrslrwdhh46-32-3126 Telephone encounter Note* Telephone Encounter - Kayla Rose LPN - 06/25/2024 12:28 PM EDT Attempted to call patient multiple times and call will not go through. Xray order has been sent to [facility] so he can go get that done at his convenience and PT will contact him to schedule. [facility] HospitalIqwnxzksjq29-08-7855 Telephone encounter Note* Telephone Encounter - DOROTHEA Liang - 06/25/2024 12:08 PM EDT Ok to send order for x-rays to [facility]. Please let pt know that x-rays have been ordered and a PT referral was sent for him also. [facility] HospitalKdqxtolptb44-20-9680 Telephone encounter Note* Telephone Encounter - Kayla Rose LPN - 06/25/2024 11:51 AM EDT Pt called stating he saw Sedrick Trotter on 06/10 and was diagnosed with stain of thoracic spine and muscle spasm, rx'd Prednisone, Tizanidine. States it is not really helping and was ?'ing if you could order either an x-ray or PT. X-ray he would like to have done at [facility] if you do order. [facility] [id number] History of Present illness Narrative* Eulalio Irby, - 06/15/2024 3:15 PM EDT Images from the original note were not included. @ENCDATE@ [facility] Rl is a 63 y.o. male who [...] MRI of the right knee performed at [facility] on 03/13/2019; Tear in the [...] note was created using voice recognition through [employer]. documented in this encounterLiberty [id number] History of Present illness Narrative* Sedrick Trotter NP - 06/10/2024 4:30 PM EDT Images [...] No follow-ups on file. documented in this encounterLiberty HospitalJnyneaaxdi35-09-7981 Instructions* Patient Instructions* Sedrick Trotter NP - 06/10/2024 4:30 PM EDT Added prednisone and tizanidine. documented in this encounterLiberty HospitalOsylkjzwtq22-11-5513 History of Present illness Narrative* Grace Haque [...] colonoscopy in 10 years. documented in this encounterLiberty [id number] NoteHNO ID: [id number] Author: BILL TUTTLE MD Service: ? Author Type: Physician Type: Progress Notes Filed: 01/30/2024 14:47 Note Text: [facility] [place] [facility] Department of Cardiovascular Medicine SECTION OF REGIONAL CARDIOLOGY OUTPATIENT VISIT DATE January 30, 2024 OUTPATIENT VISIT TYPE ESTABLISHED HISTORY OF PRESENT ILLNESS: Darius Valera is a (an) 63 year old year old male who is here today for follow-up. He had elevated WBCs and was seen by outside engineer geophysical laboratory and was told might have CLL Last [...] male here today for follow up from [place], [place]. Has h/o AF s/p ablation, HTN, DMITRY, tachycardia induced CMP, and CHF. On Eliquis, Nifedipine XL, Valsartan/HCTZ added on Doxazosin. Doxazocin increased to 2 mg but has been using only 1 mg daily. Continue to have BP spikes above 150s. Sotalol was discontinued. He followed before with a local [facility]rar [facility] Dr Hooks. Since last visit denies chest [...] Value 04/01/2022 85 No (more content not included)...[facility]06-07-2024 History of Present illness Narrative* Ita Tuttle MD - 01/30/2024 2:08 PM EDT Images from the original note were not included. [facility] [place] [facility] Department of Cardiovascular Medicine SECTION OF REGIONAL CARDIOLOGY OUTPATIENT VISIT DATE January 30, 2024 OUTPATIENT VISIT TYPE ESTABLISHED HISTORY OF PRESENT ILLNESS: Darius Valera is a (an) 63 year old year old male who is here today for follow- up. He had elevated WBCs and was seen by outside engineer geophysical laboratory and was told might have CLL Last [...] male here today for follow up from [place]. Has h/o AF s/p ablation, HTN, DMITRY, tachycardia induced CMP, and CHF. On Eliquis, Nifedipine XL, Valsartan/HCTZ added on Doxazosin. Doxazocin increased to 2 mg but has been using only 1 mg daily. Continue to have BP spikes above 150s. Sotalol was discontinued. He followed before with a local [facility]rar [facility] Dr Hooks. Since last visit denies chest [...] rare (<1.0%). Isolated VEs were occasional (1.4%, 36930), VE Couplets were rare (<1.0%, 56), and [...] needed - S/p DCC by his local regist[facility] (Dr aCstle) and subsequent ablation by EP (Dr Sena). - Negative outside stress EKG for ischemia 03/22/2020 - Refill authorized - Most recent renal fx reviewed This note was partially generated using The Bully Tracker voice recognition system, and there may be some incorrect words, spellings, and punctuation that were not noted in checking the note before saving. Someelements copied from my previous notes which have been updated as appropriate and reflect current medical decision making from today Bill Tuttle M.D., Miguel CONTACT INFORMATION: Shelbi Tuttle M.D., Miguel. Pneumatic Tube Fitter Clinical tax assessor [facility] Staff Recreation Adviser Timothy WhippleCarrie [facility] Mail Code AVW2-1 [id number] [facility] [place] [address] CC: To use this Smartlink, specify the provider ID whose address you want to display, e.g., .PROVADDR[1 (where 1 is the provider ID). documented in this encounterMckitrick Hospital05-08-2024 Telephone encounter Note * Telephone Encounter [...] 04/01/2022 0.98 0.73 - 1.22 mg/dL Final [facility]05-08-2024 Miscellaneous Notes* Telephone Encounter - Fabiola [...] - 1.22 mg/dL Final documented in this encounterMckitrick Hospital02-09-2024 NoteHNO ID: [id number] Author: BILL TUTTLE MD Service: ? Author Type: Physician Type: Progress Notes Filed: 10/03/2023 13:43 Note Text: [facility] [place] [facility] Department of Cardiovascular Medicine SECTION [...] male here today for follow up from [place]. Has h/o AF s/p ablation, HTN, DMITRY, tachycardia induced CMP, and CHF. On Eliquis, Nifedipine XL, Valsartan/HCTZ added on Doxazosin. Doxazocin increased to 2 mg but has been using only 1 mg daily. Continue to have BP spikes above 150s. Sotalol was discontinued. He followed before with a local registrar [facility] Dr Hooks. Since last visit denies chest [...] (k/uL) Date Value 0 (more content not included)...[facility]01-22-2024 Miscellaneous Notes* Telephone Encounter - Uyen Martinez RN - 09/15/2023 10:37 AM EST Pt sent [employer] message regarding below. * Telephone Encounter - [...] Thanks Shelbi Tuttle MD documented in this encounterMckitrick Hospital12-07-2023 History of Present illness Narrative* Ita Tuttle MD - 07/31/2023 12:48 PM EST Images from the original note were not included. [facility] [place] Sissy Zepeda Department of Cardiovascular Medicine SECTION [...] male here today for follow up from [place], [place]. Has h/o AF s/p ablation, HTN, DMITRY, tachycardia induced CMP, and CHF. On Eliquis, Nifedipine XL, Valsartan/HCTZ added on Doxazosin. Doxazocin increased to 2 mg but has been using only 1 mg daily. Continue to have BP spikes above 150s. Sotalol was discontinued. He followed before with a local [facility] Dr Hooks. Since last visit denies chest [...] size - S/p DCC by his local [facility] (Dr Castle) and subsequent ablation by EP (Dr Sena). - Negative outside stress EKG for ischemia 03/22/2020 - Advised to establish with a PCP at [facility] This note was partially generated using The Bul[employer] Tracker voice recognition system, and there may be some incorrect words, spellings, and punctuation that were not noted in checking the note before saving. Someelements copied from my previous notes which have been updated as appropriate and reflect current medical decision making from today Bill Tuttle M.D., F.A.C.C CONTACT INFORMATION: Shelbi Tuttle M.D., Moy.Jojo.CAmbrosio. Pneumatic Tube Fitter Clinical tax assessor [facility] Staff Recreation Adviser Timothy Diaz [facility] Mail Code AVW2-1 [id number] [place] [place] [address] CC: To use this Smartlink, specify the provider ID whose address you want to display, e.g., .PROVADDR[1 (where 1 is the provider ID). documented in this encounterMckitrick Hospital08-08-2023 Miscellaneous Notes* Telephone Encounter - Griselda [...] - 1.22 mg/dL Final documented in this encounterMckitrick Hospital05-03-2023 History of Present illness Narrative* Ita Tuttle MD - 12/25/2022 2:00 PM EDT Images from the original note were not included. [facility] [place] Sissy Zepeda Department of Cardiovascular Medicine SECTION OF REGIONAL CARDIOLOGY OUTPATIENT VISIT DATE December 25, 2022 OUTPATIENT VISIT TYPE Established HISTORY OF PRESENT ILLNESS: Darius Valera is a 62 year old male here today for follow up from [place], [place]. Has h/o AF s/p ablation, HTN, DMITRY, tachycardia induced CMP, and CHF. On Eliquis, Nifedipine XL, Valsartan/HCTZ added on Doxazosin. Doxazocin increased to 2 mg but has been using only 1 mg daily. Continue to have BP spikes above 150s. Sotalol was discontinued. He followed before with a local [facility] Dr Hooks. Since last visit denies chest [...] daily - S/p DCC by his local [facility] (Dr Castle) and subsequent ablation by EP [...] needed. This note was partially generated using The Bul[employer] Tracker voice recognition system, and there may be some incorrect words, spellings, and punctuation that were not noted in checking the note before saving. Bill Tuttle M.D., F.A.C.C CONTACT INFORMATION: Bill Tuttle M.D., FTracy. Staff Recreation Adviser Timothy Diaz [facility] Mail Code AVW2-1 [id number] [place] [place] [address] CC: To use this Smartlink, specify the provider ID whose address you want to display, e.g., .PROVADDR[1 (where 1 is the provider ID). documented in this encounterMckitrick Hospital05-02-2023 NotePROCEDURE: XR FOOT RT MIN 3 [...] Electronically authenticated by: BRIA PATEL Date: 2022-12-24 12:07[facility]05-02-2023 NotePROCEDURE: XR FOOT RT MIN 3 [...] Electronically authenticated by: BRIA PATEL Date: 2022-12-24 12:07[facility]03-08-2023 Miscellaneous Notes* Telephone Encounter - Lila Gomezen - 10/30/2022 3:09 PM EST Darius rescheduled for [facility] [place] in March with Dr. Sena. 10/30/2022 * [...] discuss further what to do and pref dr only Please advise spouse documented in this encounterMckitrick Hospital02-23-2023 History of Present illness Narrative* Ita Tuttle MD - 10/17/2022 3:30 PM EST Images from the original note were not included. [facility] [place] Sissy Zepeda Department of Cardiovascular Medicine SECTION OF REGIONAL CARDIOLOGY OUTPATIENT VISIT DATE October 17, 2022 OUTPATIENT VISIT TYPE Established HISTORY OF PRESENT ILLNESS: Darius Valera is a 62 year old male here today for follow up from [place], [place]. Has h/o AF s/p ablation, HTN, DMITRY, tachycardia induced CMP, and CHF. On Eliquis, Nifedipine XL, Valsartan/HCTZ added on Doxazosin. Sotalol was discontinued. He followedbefore with a local [facility] Dr Hooks. Since last visit denies chest [...] MG - S/p DCC by his local [facility] (Dr Castle) and subsequent ablation by EP [...] needed. This note was partially generated using The Bully Tracker voice recognition system, and there may be some incorrect words, spellings, and punctuation that were not noted in checking the note before saving. Bill Tuttle M.D., F.A.C.C CONTACT INFORMATION: Bill Tuttle M.D., F.A.C.C. Staff Recreation Adviser Timothy Diaz [facility] Mail Code AVW2-5 [id number] [place] [place] [address] CC: To use this Smartlink, specify the provider ID whose address you want to display, e.g., .PROVADDR[1 (where 1 is the provider ID). documented in this encounterMckitrick Hospital02-23-2023 Miscellaneous Notes* Telephone Encounter - Manisha [...] Busby - 10/16/2022 4:19 PM EST Local [facility] 10 day supply Patient has not received it through mail yet, Today was his last pill, is it possible to do a shortterm refill so he does not miss a dose. Has an appointment tomorrow with us but is requesting to have filled tonight. documented in this encounterMckitrick Hospital02-20-2023 Miscellaneous Notes* Telephone Encounter - Marquez [...] - 1.4 mg/dL Final documented in this encounterMckitrick Hospital02-13-2023 Miscellaneous Notes* Telephone Encounter - Virgie [...] - 1.4 mg/dL Final documented in this encounterMckitrick Hospital01-20-2023 History of Present illness Narrative* Ita Tuttle MD - 09/13/2022 3:30 PM EST Images from the original note were not included. [facility] [place] Sissy Zepeda Department of Cardiovascular Medicine SECTION OF REGIONAL CARDIOLOGY OUTPATIENT VISIT DATE September 13, 2022 OUTPATIENT VISIT TYPE Established HISTORY OF PRESENT ILLNESS: Darius Valera is a 61 year old male here today for follow up from [place], [place]. Has h/o AF s/p ablation, HTN, DMTIRY, tachycardia induced CMP, and CHF. On Eliquis, Nifedipine XL, Valsartan/HCTZ. Sotalol was discontinued. He followed before with a local [facility] Dr Hooks. Since last visit denies chest [...] or gallop. No parasternal heave or thrill. [place] not displaced. LUNGS: clear to auscultation, no [...] daily - S/p DCC by his local [facility] (Dr Castle) and subsequent ablation by EP [...] needed. This note was partially generated using The Bully Tracker voice recognition system, and there may be some incorrect words, spellings, and punctuation that were not noted in checking the note before saving. Bill Tuttle M.D., F.A.C.C CONTACT INFORMATION: Bill Tuttle M.D., F.Jojo.C.C. Staff Recreation Adviser Timothy Diaz [facility] Mail Code AVW2-1 [id number] [place] [place] [address] CC: To use this Smartlink, specify the provider ID whose address you want to display, e.g., .PROVADDR[1 (where 1 is the provider ID). documented in this encounterMckitrick Hospital12-09-2022 Miscellaneous Notes* Telephone Encounter - Shani [...] a day. Thanks TD documented in this encounterMckitrick Hospital12-09-2022 Miscellaneous Notes* Telephone Encounter - Marissa [...] a day. Thanks TD documented in this encounterMckitrick Hospital12-08-2022 History of Present illness Narrative* Hiren [...] BP readings, which have frequently been in [id number]. ACTIVE PROBLEM LIST Atrial Fibrillation, Persistent (Hcc) [...] ARB/HCTZ Meds and allergies were reviewed/updated in EPIC. General - Well-developed, well-nourished, no acute distress. [...] follow-up with me in about 6 m [facility]. If he has no further recurrences of A. fib after that, he can follow-up with me as needed. Hiren Sena MD CC - Bill Tuttle MD This clinical note has been produced using speech recognition software and may contain errors related to that system including grammar, punctuation, spelling, gender and words and phrases that may beinappropriate. documented in this encounterMckitrick Hospital09-16-2022 History of Present illness Narrative* Ita Tuttle MD - 05/10/2022 3:03 PM EDT Images from the original note were not included. [facility] [place] Sissy Zepeda Department of Cardiovascular Medicine SECTION OF REGIONAL CARDIOLOGY OUTPATIENT VISIT DATE May 10, 2022 OUTPATIENT VISIT TYPE Established HISTORY OF PRESENT ILLNESS: Darius Valera is a 61 year old male here today for follow up from [place], [place]. Has h/o AF s/p ablation, HTN, DMITRY, tachycardia induced CMP, and CHF. On Eliquis, Nifedipine XL, Valsartan/HCTZ, Lasix, Potassium chloride. Sotalol was discontinued. He followed before with a local [facility]rar [facility] Dr Hooks. He reported that he was [...] or gallop. No parasternal heave or thrill. [place] not displaced. LUNGS: clear to auscultation, no [...] Nifedipine - S/p DCC by his local [facility] (Dr Castle) and subsequent ablation by EP [...] needed. This note was partially generated using The Bully Tracker voice recognition system, and there may be some incorrect words, spellings, and punctuation that were not noted in checking the note before saving. Bill Tuttle M.D., F.A.C.C CONTACT INFORMATION: Bill Tuttle M.D., F.A.C.C. Staff Recreation Adviser Timothy Diaz [facility] Mail Code AVW2-1 [id number] [place] [place] [address] CC: To use this Smartlink, specify the provider ID whose address you want to display, e.g., .PROVADDR[1 (where 1 is the provider ID). documented in this encounterMckitrick Hospital08-19-2022 History of Present illness Narrative* Brigdet Hudson - 04/12/2022 2:39 PM EDT Waiting for LALO for program status/follow up documented in this encounterMckitrick Hospital08-04-2022 History of Present illness Narrative* Ita Tuttle MD - 03/28/2022 3:00 PM EDT Images from the original note were not included. [facility] [place] Sissy Zepeda Department of Cardiovascular Medicine SECTION OF REGIONAL CARDIOLOGY OUTPATIENT VISIT DATE March 28, 2022 OUTPATIENT VISIT TYPE Established HISTORY OF PRESENT ILLNESS: Darius Valera is a 61 year old male here today for follow up from [place], [place]. Has h/o AF, HTN, DMITRY, tachycardia induced CMP, and CHF. On Eliquis, Nifedipine XL, Valsartan/HCTZ, Lasix, Potassium chloride, and Sotalol. He followed before with a local [facility]rar [facility] Dr Hooks. He reported that he was [...] or gallop. No parasternal heave or thrill. [place] not displaced. LUNGS: clear to auscultation, no [...] Nifedipine - S/p DCC by his local [facility] (Dr Castle) and subsequent ablation by EP [...] lipids This note was partially generated using The Bully Tracker voice recognition system, and there may be some incorrect words, spellings, and punctuation that were not noted in checking the note before saving. Bill Tuttle M.D., F.A.C.C CONTACT INFORMATION: Bill Tuttle M.D., F.A.C.C. Staff Recreation Adviser Timothy Diaz [facility] Mail Code AVW2-1 [id number] [place] [place] [address] CC: To use this Smartlink, specify the provider ID whose address you want to display, e.g., .PROVADDR[1 (where 1 is the provider ID). documented in this encounterMckitrick Hospital08-02-2022 History of Present illness Narrative* Bijal Jackson PA-C - 03/26/2022 1:40 PM EDT Incidental Lung Nodule Enrollment Call attempt: 1st Attempt Call status: Complete Enrolled in Lung Nodule program: Yes Lung Nodule outreach: Enrolled Lung Nodule Program Location: [place] Patient has already discussed lung nodule with his registrar museum, who placed a consult to lung nodule clinic. He is scheduled to see Lilo Moody later this month. documented in this encounterMckitrick Hospital07-29-2022 History of Present illness Narrative* Barbara Mccloud APRN.INSTRUCTIONAL WRITER - 03/22/2022 9:59 AM EDT Images from the original note were not included. [facility] [place] Sissy Zepeda Department of Cardiovascular Medicine SECTION [...] PND, lightheadedness or syncope. PAST CARDIAC HISTORY: DMITRY AF SOCIAL HISTORY Social History Tobacco Use [...] days of your procedure? No Barbara Mccloud APRN.INSTRUCTIONAL WRITER Record recurrences on or prior to the follow-up date but after the date of the previous follow-up (or after ablation date if this is the first follow-up) Palpitations: No AFib: No Aflutter: No AT or SVT: No Is patient currently in atrial fibrillation? No Arrhythmia recurrence beyond the blanking period: No One year success off AAD Not applicable Barbara Mccloud APRN.INSTRUCTIONAL WRITER Pulmonary CT scan 03/22/2022: IMPRESSION: 1. Normal [...] in 3 months. CONTACT INFORMATION: Barbara Mccloud APRN.CNP documented in this encounterMckitrick Hospital07-29-2022 History of Present illness Narrative* RT [...] 2022 TIME: 8:50 AM documented in this encounterMckitrick Hospital05-19-2022 Miscellaneous Notes* Telephone Encounter - Britney Gamboa APRN.CNP, DNP - 01/10/2022 8:51 AM EDT The following [...] Britney Gamboa APRN.CNP, DNP documented in this encounterMckitrick Hospital04-29-2022 Miscellaneous Notes* Telephone Encounter - Yara Rubin RN - 12/21/2021 4:03 PM EDT Closing encounter see encounter note as below: RX INSTRUCTIONS: Patient aware RX will be sent to pharmacy. No need to notify patient. Alicia Chavarria documented in this encounterMckitrick Hospital04-29-2022 Miscellaneous Notes* Telephone Encounter - Ran [...] notify patient. Alicia Chavarria documented in this encounterMckitrick Hospital04-28-2022 Miscellaneous Notes* Telephone Encounter - Uyen Martinez RN - 12/20/2021 3:45 PM EDT Pt in for office visit with Dr. Tuttle today. Requesting senior care refills on all meds from mail away pharmacy, including sotalol. Pt had ablation on 12/03/21. Please sign refill of sotalol if appropriate. Thanks documented in this [facility]04-14-2022 Miscellaneous Notes* Telephone Encounter - Uyen Allison RN - 12/06/2021 4:34 PM EDT Completed form given to admin to fax and upload. Uyen Allison RN * Telephone Encounter - Tayla Burrell - 12/06/2021 1:11 PM EDT Received [place] paper work today and left on nurses desk to complete. I also uploaded documents to [employer] * Telephone Encounter - Elida Abarca - 12/06/2021 10:49 AM EDT Please contact patient regarding [employer] message. documented in this [facility]04-13-2022 Miscellaneous Notes* Telephone Encounter - Barbara Mccloud APRN.SADI - 12/05/2021 4:21 PM EDT Received urgent [...] he has no improvement by Friday, to [facility] ED for evaluation. Patient verbalized understanding. I asked him to call the office with any updates. Barbara Mccloud APRN.SADI documented in this encounterMckitrick Hospital04-13-2022 Miscellaneous Notes* Telephone Encounter - Cammy Fay RN - 12/05/2021 3:55 PM EDT [facility] Center Inbound Phone Encounter DATE of SERVICE: 12/05/2021 TIME of SERVICE: 3:55 PM Status: Non-urgent, needs attention Service/Provider: EP/JAMIE Garvey M.D. Reason for call: Pain Contact information: [phone] Resolution: Sent to [facility] Comments: Pt states that he is having pain in his bilat upper chest, I can not even lay down . He is taking tylenol and it is not working. He wants to know if he can take something else? Please callto discuss. Cammy Fay RN Date of Resolution: 12/05/2021 Time of Resolution 3:55 PM documented in this encounterMckitrick Hospital04-13-2022 Miscellaneous Notes* Telephone Encounter - Elida Abarca - 12/05/2021 3:41 PM EDT Please contact patient regarding MyChart message. * Telephone Encounter - DARIO Jose - 12/05/2021 1:49 PM EDT Patients calling. Patients workplace did not receive [facility] paperwork & patient is needing a return to work date. Please advise [phone] documented in this encounterMckitrick Hospital04-12-2022 History of Present illness Narrative* Tammy Mendoza - 12/04/2021 11:12 AM EDT TRANSMITTER INSTRUCTIONS Patient Name: Darius Valera [facility] Number: [id number] Fresh battery inserted in monitor Baseline recording not completed Patient instructed 1.) Scheduled and Symptomatic recording instructions 2.) Usage of event button and/or transmission instructions 3.) Maintenance and care of monitor 4.) Landline availability 5.) Return unit at the end of prescribed order 6.) Call with problems [phone] OR [phone] Patient expresses good verbal understanding of instructions Tammy Mendoza documented in this encounterMckitrick Hospital04-08-2022 History of Present illness Narrative* Griselda [...] discussed with Physician, nurse practitioner or Physician surgical first assistant upon discharge Instructions for transmitting EKG to Monitoring Center 3 month follow up instructions Contact number for information and questions Patient Evaluation: Verbalizes understanding Follow Up Plan: Follow up as directed by . Supplemental Material Given: Written Material Patient education regarding radiation exposure. Instructed By Griselda Felder RN, RN. In Department of CARDIOLOGY. [facility]* Diagnosis AF (paroxysmal atrial fibrillation) (HCC)- Primary Atrial fibrillation documented in this encounter [facility] note* Diagnosis Persistent atrial fibrillation (HCC) Atrial fibrillation documented in this encounter [facility] note* Diagnosis Atrial fibrillation, persistent (HCC)- Primary Atrial fibrillation documented in this encounter [facility] note* Diagnosis Atrial fibrillation, persistent (HCC) Atrial fibrillation Benign essential HTN Essential hypertension, benign documented in this encounter [facility] note* Diagnosis Atrial fibrillation, persistent (HCC) Atrial fibrillation Benign essential HTN Essential hypertension, benign Hypertension, unspecified type documented in this encounter [facility] note* Diagnosis Atrial fibrillation, persistent (HCC)- Primary Atrial fibrillation Lung nodule Solitary pulmonary nodule DMITRY (obstructive sleep apnea) Obstructive sleep apnea (adult) (pediatric) documented in this encounter [facility] note* Diagnosis Persistent atrial fibrillation (HCC) Atrial fibrillation documented in this encounter [facility] note* Diagnosis Lung nodule- Primary Solitary pulmonary nodule documented in this encounter [facility] note* Diagnosis Atherosclerosis- Primary Generalized and unspecified atherosclerosis Ascending aorta dilatation (HCC) Thoracic aortic ectasia Tachycardia induced cardiomyopathy (HCC) Tachycardia, unspecified documented in this encounter [facility] note* Diagnosis Tachycardia induced cardiomyopathy (HCC)- Primary Tachycardia, unspecified documented in this encounter [facility] note* Diagnosis Atrial fibrillation, persistent (HCC)- Primary Atrial fibrillation Hypertension, unspecified type DMITRY (obstructive sleep apnea) Obstructive sleep apnea (adult) (pediatric) Benign essential HTN Essential hypertension, benign S/P ablation of atrial fibrillation Other postprocedural status Encounter for current long-term use of anticoagulants Long-term (current) use of anticoagulants documented in this encounter [facility] note* Diagnosis Hypertension, unspecified type- Primary documented in this encounter [facility] note* Diagnosis Hypertension, unspecified type documented in this encounter [facility]* Diagnosis Medication refill [Z76.0 (ICD-10-CM)]- Primary Issue of repeat prescriptions Hypertension, unspecified type documented in this encounter [facility] note* Diagnosis Hypertension, unspecified type- Primary documented in this encounter [facility] note* Diagnosis Atrial fibrillation, persistent (HCC) Atrial fibrillation Benign essential HTN Essential hypertension, benign documented in this encounter [facility] note* Diagnosis Hypertension, unspecified type- Primary Aortic root dilatation (HCC) Thoracic aortic ectasia documented in this encounter [facility] note* Diagnosis Hypertension, unspecified type documented in this encounter [facility] noteNo assessment information availableCincinnati [facility] Work Phone: Evaluation note* Diagnosis Paroxysmal atrial fibrillation (HCC)- Primary Atrial fibrillation Atrial fibrillation, persistent (HCC) Atrial fibrillation Benign essential HTN Essential hypertension, benign Hypertension, unspecified type Prescription refill Issue of repeat prescriptions Tachycardia induced cardiomyopathy (HCC) Tachycardia, unspecified Aortic root dilatation (HCC) Thoracic aortic ectasia documented in this encounter [facility] note* Diagnosis Onset Date Resolution Status Lymphocytosis acute [facility] Work Phone: evaluation note* Diagnosis Screening for malignant neoplasm of colon- Primary [facility] Diagnosis Tear of medial meniscus of right knee, current, unspecified tear type, subsequent encounter- Primary [facility]* Diagnosis Strain of thoracic back region- Primary Muscle spasm Spasm of muscle [facility]* Diagnosis Strain of thoracic back region- Primary Muscle spasm Spasm of muscle [facility]* Diagnosis Pre-op testing Unspecified pre-operative examination [facility]* Diagnosis History of colon polyps- Primary Screening for malignant neoplasm of colon [facility]* Diagnosis S/P right knee arthroscopy- Primary [facility]* Diagnosis Acute non-recurrent maxillary sinusitis- Primary [facility]* Diagnosis Primary hypertension- Primary Unspecified essential hypertension PAF (paroxysmal atrial fibrillation) (HCC) Atrial fibrillation Coronary artery calcification Coronary atherosclerosis of unspecified type of vessel, [place] or graft documented in this encounter [facility]* Diagnosis Prescription refill- Primary Issue of repeat prescriptions documented in this encounter [facility] note* Diagnosis Left hand pain- Primary Pain in soft tissues of limb S/P right knee arthroscopy Right knee pain, unspecified chronicity [facility]* Diagnosis S/P right knee arthroscopy- Primary [facility]* Diagnosis Hypertension, unspecified type documented in this encounter [facility] note* Diagnosis Wellness examination- Primary Muscle cramping [...] neoplasm of prostate [facility]* Diagnosis PAF (paroxysmal atrial fibrillation) (HCC)- Primary Atrial fibrillation Atrial fibrillation, persistent (HCC) Atrial fibrillation Benign essential HTN Essential hypertension, benign Hypertension, unspecified type Tachycardia induced cardiomyopathy (HCC) Tachycardia, unspecified documented [facility] this encounter [facility] N[facility]* Here for [...] 4. Arrangements for cardioversion will be made [facility] DO Work Phone: History of Present illness [...] 4. Arrangements for cardioversion will be made [facility] Work Phone: History of Present illness [...] 4. Arrangements for cardioversion will be made [facility] Work Phone: History of Present illness [...] his [facility] care provider. [facility] Outpatient Procedure (Routine) - Pending Review Specialty Diagnoses / Procedures Referred By Shima carrillo Referred To Contact HEART AND VASCULAR PROSPECT Diagnoses Persistent atrial fibrillation (HCC) Procedures ECG COMPLETE ECG ROUTINE ECG W/LEAST 12 LDS W/I&R 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 APRN.CNP [address] [place] [id number] [facility] [place] [address] [place] [address] Referral ID Status Reason Start Date Expiration Date Visits Requested Visits Authorized [id number] Pending Review Auto-Generat ed Referral 12/12/2021 12/12/2022 1 1 * MRI/CT (Routine) - Pending Review Specialty Diagnoses / Procedures Referred By Shima carrillo Referred To Contact CT IMAGING Diagnoses Persistent atrial fibrillation (HCC) Procedures CT PULMONARY VEIN W IVCON CT HEART CONTRAST EVAL CARDIAC STRUCTURE&MORPH 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, 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 [address] [place] [address] Ct Imaging Referral ID Status Reason Start Date Expiration Date Visits Requested Visits Authorized [id number] Pending Review Auto-Generat ed Referral 03/13/2022 01/11/2023 1 1 * Outpatient Procedure (Routine) - Pending Review Specialty Diagnoses / Procedures Referred By Shima carrillo Referred To Contact [facility] VASCULAR PROSPECT Diagnoses Persistent atrial fibrillation (HCC) Procedures ECHO ECHO TTHRC R-T 2D W/WOM-MODE COMPL SPEC&COLR D 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 APRN.INSTRUCTIONAL WRITER [address] [place] [address] [facility] [place] [address] [place] [address] Referral ID Status Reason Start Date Expiration Date Visits Requested Visits Authorized [id number] Pending Review Auto-Generat ed Referral 12/12/2021 12/12/2022 1 1 [facility] for referral (narrative)* Outpatient Procedure (Routine) - Closed Specialty Diagnoses / Procedures Referred By Contac t Referred To Contact [facility] Diagnoses Atrial fibrillation, persistent (HCC) Procedures ECG COMPLETE ECG ROUTINE ECG W/LEAST 12 LDS W/I&R Hiren Sena MD [address] [place] [address] [facility] [address] [address] Referral ID Status Reason Start Date Expiration Date V isits Requested Visits Authorized [id number] Closed Auto-Generate d Referral 08/01/2022 08/01/2023 1 1 [facility] for referral (narrative)No reason for referral information [facility] Work Phone: Summary Purpose Family History No [...] Age at Onset Recorded Date/T nalini father Bruington's disease Unknown father Unknown Not Specified Unknown Malignant neoplasm Unknown grandparent Malignant neoplasm of pancreas Unknown Relationship Condition Age at Onset Recorded Date/T nalini father Bruington's disease Unknown father Unknown mother Unknown Malignant neoplasm Unknown grandparent Malignant neoplasm of pancreas Unknown Advance Directives No Advanced Directives Records FoundDocuments on File Type Date Recorded Patient Pet Walker Expl anation Advance Directive(s) 10/18/2021 4:33 PM Documents on File Type Date Recorded Patient Pet Walker Expl anation Advance Directive(s) 10/18/2021 4:33 PM [...] patient underwent a cardioversion. EKG reviewed by Layo Jiménez RN advising patient is in A- Flutter. Patient advised to stay on current medications to which he verbalized understanding. * To Dr. Tera Davison MD Reason for Referral Specialty Diagnoses / Procedures Referred By Shima carrillo Referred To Contact Pulmonary Disease Diagnoses Lung nodule Procedures CONSULT TO LUNG NODULE CLINIC OFFICE/OUTPATIENT [facility] 60-74 MINUTES Barbara Mccolud APRN.INSTRUCTIONAL WRITER [address] [place] [address] Referral ID Status Reason Start Date Expiration Date Visits Requested Visits Authorized [id number] Pending Review PCP Requested Referral 03/22/2022 03/22/2023 1 1 Specialty Diagnoses / Procedures Referred By Shima carrillo Referred To Contact CT IMAGING Diagnoses Persistent atrial fibrillation (HCC) Procedures CT PULMONARY VEIN W IVCON CT HEART CONTRAST EVAL CARDIAC STRUCTURE&MORPH 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 APRN.INSTRUCTIONAL WRITER [address] [place] [address] Ct Imaging Referral ID Status Reason Start Date Expiration Date V isits Requested Visits Authorized [id number] Closed Auto-Generate d Referral 03/13/2022 04/14/2022 1 [...] Contact dermatitis February 19, 2025 9:18 am Chief Complaint Admit Date Rash, Exposed to poison miguel February 19, 2 025 9:18am Follow Up after Biopsy March 04, 2025 2 :47pm moved up triage 05/05May 13 9:24am moved up triage 05/05May 13 9:30am lymphocytosis May 13, 2025 10:09am Additional Source Comments (unrecognized sect ion and content) No Status Records FoundNo Status Records FoundNo Status Records FoundNo Status Records FoundNo Status Records FoundNo Status Records FoundNo Status Records FoundNo Status Records FoundNo Status Records FoundNo Status Records FoundNo Status Records Found INFORMATION SOURCE (unrecogn ized section and content) DATE CREATED AUTHOR 05/19/2020 [place] [facility] DATE CREATED AUTHOR AUTHOR'S ORGANIZ ATION 06/27/2021 [employer] DATE CREATED AUTHOR AUTHOR'S ORGANIZ ATION 08/30/2021 [facility] DATE CREATED AUTHOR AUTHOR'S ORGANIZ ATION 10/18/2022 [facility] DATE CREATED AUTHOR AUTHOR'S ORGANIZ ATION 01/31/2023 [facility] DATE CREATED AUTHOR AUTHOR'S ORGANIZ ATION 04/11/2023 [facility] DATE CREATED AUTHOR AUTHOR'S ORGANIZ ATION 01/18/2024 [facility] DATE CREATED AUTHOR AUTHOR'S ORGANIZ ATION 09/23/2024 [facility] DATE CREATED AUTHOR AUTHOR'S ORGANIZ ATION 03/05/2025 [facility] EP[facility] DATE CREATED AUTHOR AUTHOR'S ORGANIZ ATION 03/20/2025 [facility] DATE CREATED AUTHOR AUTHOR'S ORGANIZ ATION 05/13/[address] [facility] Source Comments (unrecognize d section and content) In the event this informatio n is protected by the Federal Confidentiality of Alcohol and Drug Abuse Patient Records regulations: The Federal rules restrict any use of the information to criminally investigate or prosecute any alcohol or drug abuse patient.[facility] HospitalIn the event this information is protected by the Federal Confidentiality of Alcohol and Drug Abuse Patient Records regulations: The Federal rules restrict any use of the information to criminally investigate or prosecute any alcohol or drug abuse patient.[facility] HospitalIn the event this information is protected by the Federal Confidentiality of Alcohol and Drug Abuse Patient Records regulations: The Federal rules restrict any use of the information to criminally investigate or prosecute any alcohol or drug abuse patient.[facility] HospitalIn the event this information is protected by the Federal Confidentiality of Alcohol and Drug Abuse Patient Records regulations: The Federal rules restrict any use of the information to criminally investigate or prosecute any alcohol or drug abuse patient.[facility] HospitalIn the event this information is protected by the Federal Confidentiality of Alcohol and Drug Abuse Patient Records regulations: The Federal rules restrict any use of the information to criminally investigate or prosecute any alcohol or drug abuse patient.[facility] HospitalIn the event this information is protected by the Federal Confidentiality of Alcohol and Drug Abuse Patient Records regulations: The Federal rules restrict any use of the information to criminally investigate or prosecute any alcohol or drug abuse patient.[facility] HospitalIn the event this information is protected by the Federal Confidentiality of Alcohol and Drug Abuse Patient Records regulations: The Federal rules restrict any use of the information to criminally investigate or prosecute any alcohol or drug abuse patient.[facility] HospitalIn the event this information is protected by the Federal Confidentiality of Alcohol and Drug Abuse Patient Records regulations: The Federal rules restrict any use of the information to criminally investigate or prosecute any alcohol or drug abuse patient.[facility] HospitalIn the event this information is protected by the Federal Confidentiality of Alcohol and Drug Abuse Patient Records regulations: The Federal rules restrict any use of the information to criminally investigate or prosecute any alcohol or drug abuse patient.[facility] HospitalIn the event this information is protected by the Federal Confidentiality of Alcohol and Drug Abuse Patient Records regulations: The Federal rules restrict any use of the information to criminally investigate or prosecute any alcohol or drug abuse patient.[facility] HospitalIn the event this information is protected by the Federal Confidentiality of Alcohol and Drug Abuse Patient Records regulations: The Federal rules restrict any use of the information to criminally investigate or prosecute any alcohol or drug abuse patient.[facility] HospitalIn the event this information is protected by the Federal Confidentiality of Alcohol and Drug Abuse Patient Records regulations: The Federal rules restrict any use of the information to criminally investigate or prosecute any alcohol or drug abuse patient.[facility] HospitalIn the event this information is protected by the Federal Confidentiality of Alcohol and Drug Abuse Patient Records regulations: The Federal rules restrict any use of the information to criminally investigate or prosecute any alcohol or drug abuse patient.[facility] HospitalIn the event this information is protected by the Federal Confidentiality of Alcohol and Drug Abuse Patient Records regulations: The Federal rules restrict any use of the information to criminally investigate or prosecute any alcohol or drug abuse patient.[facility] HospitalIn the event this information is protected by the Federal Confidentiality of Alcohol and Drug Abuse Patient Records regulations: The Federal rules restrict any use of the information to criminally investigate or prosecute any alcohol or drug abuse patient.[facility] HospitalIn the event this information is protected by the Federal Confidentiality of Alcohol and Drug Abuse Patient Records regulations: The Federal rules restrict any use of the information to criminally investigate or prosecute any alcohol or drug abuse patient.[facility] HospitalIn the event this information is protected by the Federal Confidentiality of Alcohol and Drug Abuse Patient Records regulations: The Federal rules restrict any use of the information to criminally investigate or prosecute any alcohol or drug abuse patient.[facility] HospitalIn the event this information is protected by the Federal Confidentiality of Alcohol and Drug Abuse Patient Records regulations: The Federal rules restrict any use of the information to criminally investigate or prosecute any alcohol or drug abuse patient.[facility] HospitalIn the event this information is protected by the Federal Confidentiality of Alcohol and Drug Abuse Patient Records regulations: The Federal rules restrict any use of the information to criminally investigate or prosecute any alcohol or drug abuse patient.[facility] HospitalIn the event this information is protected by the Federal Confidentiality of Alcohol and Drug Abuse Patient Records regulations: The Federal rules restrict any use of the information to criminally investigate or prosecute any alcohol or drug abuse patient.[facility] HospitalIn the event this information is protected by the Federal Confidentiality of Alcohol and Drug Abuse Patient Records regulations: The Federal rules restrict any use of the information to criminally investigate or prosecute any alcohol or drug abuse patient.[facility] HospitalIn the event this information is protected by the Federal Confidentiality of Alcohol and Drug Abuse Patient Records regulations: The Federal rules restrict any use of the information to criminally investigate or prosecute any alcohol or drug abuse patient.[facility] HospitalIn the event this information is protected by the Federal Confidentiality of Alcohol and Drug Abuse Patient Records regulations: The Federal rules restrict any use of the information to criminally investigate or prosecute any alcohol or drug abuse patient.[facility] HospitalIn the event this information is protected by the Federal Confidentiality of Alcohol and Drug Abuse Patient Records regulations: The Federal rules restrict any use of the information to criminally investigate or prosecute any alcohol or drug abuse patient.[facility] HospitalIn the event this information is protected by the Federal Confidentiality of Alcohol and Drug Abuse Patient Records regulations: The Federal rules restrict any use of the information to criminally investigate or prosecute any alcohol or drug abuse patient.[facility] HospitalIn the event this information is protected by the Federal Confidentiality of Alcohol and Drug Abuse Patient Records regulations: The Federal rules restrict any use of the information to criminally investigate or prosecute any alcohol or drug abuse patient.[facility] HospitalIn the event this information is protected by the Federal Confidentiality of Alcohol and Drug Abuse Patient Records regulations: The Federal rules restrict any use of the information to criminally investigate or prosecute any alcohol or drug abuse patient.[facility] HospitalIn the event this information is protected by the Federal Confidentiality of Alcohol and Drug Abuse Patient Records regulations: The Federal rules restrict any use of the information to criminally investigate or prosecute any alcohol or drug abuse patient.[facility] HospitalIn the event this information is protected by the Federal Confidentiality of Alcohol and Drug Abuse Patient Records regulations: The Federal rules restrict any use of the information to criminally investigate or prosecute any alcohol or drug abuse patient.[facility] HospitalIn the event this information is protected by the Federal Confidentiality of Alcohol and Drug Abuse Patient Records regulations: The Federal rules restrict any use of the information to criminally investigate or prosecute any alcohol or drug abuse patient.[facility] HospitalIn the event this information is protected by the Federal Confidentiality of Alcohol and Drug Abuse Patient Records regulations: The Federal rules restrict any use of the information to criminally investigate or prosecute any alcohol or drug abuse patient.[facility] HospitalIn the event this information is protected by the Federal Confidentiality of Alcohol and Drug Abuse Patient Records regulations: The Federal rules restrict any use of the information to criminally investigate or prosecute any alcohol or drug abuse patient.[facility] HospitalIn the event this information is protected by the Federal Confidentiality of Alcohol and Drug Abuse Patient Records regulations: The Federal rules restrict any use of the information to criminally investigate or prosecute any alcohol or drug abuse patient.[facility] HospitalIn the event this information is protected by the Federal Confidentiality of Alcohol and Drug Abuse Patient Records regulations: The Federal rules restrict any use of the information to criminally investigate or prosecute any alcohol or drug abuse patient.[facility] HospitalIn the event this information is protected by the Federal Confidentiality of Alcohol and Drug Abuse Patient Records regulations: The Federal rules restrict any use of the information to criminally investigate or prosecute any alcohol or drug abuse patient.[facility] HospitalIn the event this information is protected by the Federal Confidentiality of Alcohol and Drug Abuse Patient Records regulations: The Federal rules restrict any use of the information to criminally investigate or prosecute any alcohol or drug abuse patient.[facility] HospitalIn the event this information is protected by the Federal Confidentiality of Alcohol and Drug Abuse Patient Records regulations: The Federal rules restrict any use of the information to criminally investigate or prosecute any alcohol or drug abuse patient.[facility] HospitalIn the event this information is protected by the Federal Confidentiality of Alcohol and Drug Abuse Patient Records regulations: The Federal rules restrict any use of the information to criminally investigate or prosecute any alcohol or drug abuse patient.[facility] HospitalIn the event this information is protected by the Federal Confidentiality of Alcohol and Drug Abuse Patient Records regulations: The Federal rules restrict any use of the information to criminally investigate or prosecute any alcohol or drug abuse patient.[facility] HospitalIn the event this information is protected by the Federal Confidentiality of Alcohol and Drug Abuse Patient Records regulations: The Federal rules restrict any use of the information to criminally investigate or prosecute any alcohol or drug abuse patient.[facility] HospitalIn the event this information is protected by the Federal Confidentiality of Alcohol and Drug Abuse Patient Records regulations: The Federal rules restrict any use of the information to criminally investigate or prosecute any alcohol or drug abuse patient.[facility] HospitalIn the event this information is protected by the Federal Confidentiality of Alcohol and Drug Abuse Patient Records regulations: The Federal rules restrict any use of the information to criminally investigate or prosecute any alcohol or drug abuse patient.[facility] HospitalIn the event this information is protected by the Federal Confidentiality of Alcohol and Drug Abuse Patient Records regulations: The Federal rules restrict any use of the information to criminally investigate or prosecute any alcohol or drug abuse patient.[facility] HospitalIn the event this information is protected by the Federal Confidentiality of Alcohol and Drug Abuse Patient Records regulations: The Federal rules restrict any use of the information to criminally investigate or prosecute any alcohol or drug abuse patient.[facility] HospitalIn the event this information is protected by the Federal Confidentiality of Alcohol and Drug Abuse Patient Records regulations: The Federal rules restrict any use of the information to criminally investigate or prosecute any alcohol or drug abuse patient.[facility] HospitalIn the event this information is protected by the Federal Confidentiality of Alcohol and Drug Abuse Patient Records regulations: The Federal rules restrict any use of the information to criminally investigate or prosecute any alcohol or drug abuse patient.[facility] HospitalIn the event this information is protected by the Federal Confidentiality of Alcohol and Drug Abuse Patient Records regulations: The Federal rules restrict any use of the information to criminally investigate or prosecute any alcohol or drug abuse patient.[facility] HospitalIn the event this information is protected by the Federal Confidentiality of Alcohol and Drug Abuse Patient Records regulations: The Federal rules restrict any use of the information to criminally investigate or prosecute any alcohol or drug abuse patient.[facility] HospitalIn the event this information is protected by the Federal Confidentiality of Alcohol and Drug Abuse Patient Records regulations: The Federal rules restrict any use of the information to criminally investigate or prosecute any alcohol or drug abuse patient.[facility] HospitalIn the event this information is protected by the Federal Confidentiality of Alcohol and Drug Abuse Patient Records regulations: The Federal rules restrict any use of the information to criminally investigate or prosecute any alcohol or drug abuse patient.[facility] HospitalIn the event this information is protected by the Federal Confidentiality of Alcohol and Drug Abuse Patient Records regulations: The Federal rules restrict any use of the information to criminally investigate or prosecute any alcohol or drug abuse patient.[facility] HospitalIn the event this information is protected by the Federal Confidentiality of Alcohol and Drug Abuse Patient Records regulations: The Federal rules restrict any use of the information to criminally investigate or prosecute any alcohol or drug abuse patient.[facility] HospitalIn the event this information is protected by the Federal Confidentiality of Alcohol and Drug Abuse Patient Records regulations: The Federal rules restrict any use of the information to criminally investigate or prosecute any alcohol or drug abuse patient.[facility] HospitalIn the event this information is protected by the Federal Confidentiality of Alcohol and Drug Abuse Patient Records regulations: The Federal rules restrict any use of the information to criminally investigate or prosecute any alcohol or drug abuse patient.[facility] HospitalIn the event this information is protected by the Federal Confidentiality of Alcohol and Drug Abuse Patient Records regulations: The Federal rules restrict any use of the information to criminally investigate or prosecute any alcohol or drug abuse patient.[facility] HospitalIn the event this information is protected by the Federal Confidentiality of Alcohol and Drug Abuse Patient Records regulations: The Federal rules restrict any use of the information to criminally investigate or prosecute any alcohol or drug abuse patient.[facility] HospitalIn the event this information is protected by the Federal Confidentiality of Alcohol and Drug Abuse Patient Records regulations: The Federal rules restrict any use of the information to criminally investigate or prosecute any alcohol or drug abuse patient.[facility] HospitalIn the event this information is protected by the Federal Confidentiality of Alcohol and Drug Abuse Patient Records regulations: The Federal rules restrict any use of the information to criminally investigate or prosecute any alcohol or drug abuse patient.[facility] HospitalIn the event this information is protected by the Federal Confidentiality of Alcohol and Drug Abuse Patient Records regulations: The Federal rules restrict any use of the information to criminally investigate or prosecute any alcohol or drug abuse patient.[facility] HospitalIn the event this information is protected by the Federal Confidentiality of Alcohol and Drug Abuse Patient Records regulations: The Federal rules restrict any use of the information to criminally investigate or prosecute any alcohol or drug abuse patient.[facility] HospitalIn the event this information is protected by the Federal Confidentiality of Alcohol and Drug Abuse Patient Records regulations: The Federal rules restrict any use of the information to criminally investigate or prosecute any alcohol or drug abuse patient.[facility] HospitalIn the event this information is protected by the Federal Confidentiality of Alcohol and Drug Abuse Patient Records regulations: The Federal rules restrict any use of the information to criminally investigate or prosecute any alcohol or drug abuse patient.[facility] HospitalIn the event this information is protected by the Federal Confidentiality of Alcohol and Drug Abuse Patient Records regulations: The Federal rules restrict any use of the information to criminally investigate or prosecute any alcohol or drug abuse patient.[facility] HospitalIn the event this information is protected by the Federal Confidentiality of Alcohol and Drug Abuse Patient Records regulations: The Federal rules restrict any use of the information to criminally investigate or prosecute any alcohol or drug abuse patient.[facility] Hospital[facility] the event this information is protected by the Federal Confidentiality of Alcohol and Drug Abuse Patient Records regulations: The Federal rules restrict any use of the information to criminally investigate or prosecute any alcohol or drug abuse patient.[facility] Hospital[facility] the event this information is protected by the Federal Confidentiality of Alcohol and Drug Abuse Patient Records regulations: The Federal rules restrict any use of the information to criminally investigate or prosecute any alcohol or drug abuse patient.[facility] Hospital[facility] the event this information is protected by the Federal Confidentiality of Alcohol and Drug Abuse Patient Records regulations: The Federal rules restrict any use of the information to criminally investigate or prosecute any alcohol or drug abuse patient.[facility] Reason for Visit (unrecogniz ed section and content) Reason Comments Patient Education PVI Reason Comments Transmitter 3 months Reason Comments Post Dc Program Call - Needs Attn Reason Comments chest discomfort after ablation Reason Onset Date Comments Refill Request 12/20/2021 Reason Onset Date Comments Refill Request 12/21/2021 Reason Comments Atrial Fibrillation Reason Comments Radiology CT Specialty Diagnoses / Procedures Referred By Contac t Referred To Contact CT IMAGING Diagnoses Persistent atrial fibrillation (HCC) Procedures CT PULMONARY VEIN W IVCON CT HEART CONTRAST EVAL CARDIAC STRUCTURE&MORPH 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, 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 [address] [place] [address] Ct Imaging Referral ID Status Reason Start Date Expiration Date V isits Requested Visits Authorized [id number] Closed Auto-Generate d Referral 03/13/2022 04/14/2022 1 [...] y Specialty Diagnoses / Procedures Referred By Contac t Referred To Contact General Surgery Diagnoses Screening for malignant neoplasm of colon Procedures MD OFFICE/OUTPATIENT [facility] 60 MINUTES Linda Jansen PA [address] [facility] [address] [place] [address] Grace Bucio MD [address] [place] [address] Referral ID Status Reason Start Date Expiration Date V isits Requested Visits Authorized [id number] Closed Specialty Services Required 02/09/2024 08/07/2024 1 1 Reason Comments Knee Pain Post-op Reason Comments Knee Pain Post-op Pain Reason Comments Pain Reason Onset Date Comments Refill Request 01/01/2025 Care Teams (unrecognized sec tion and content) Certified Registered Nurse Anesthetist Relationship Specialty [place] [address] [place] [address] Primary Staff Physician Cardiology 03/22/22 Certified Registered Nurse Anesthetist Relationship Specialty [place] [address] [place] [address] Primary Staff Physician Cardiology 03/22/22 Certified Registered Nurse Anesthetist Relationship Specialty Start Date End Date Ita Tuttle MD [address] [place] [address] [place] [address] Primary Staff Physician Cardiology 03/22/22 Certified Registered Nurse Anesthetist Relationship Specialty Start Date End Date Ita Tuttle MD [address] [place] [address] [place] [address] Primary Staff Physician Cardiology 03/22/22 Certified Registered Nurse Anesthetist Relationship Specialty Start Date End Date Ita Tuttle MD [address] [place] [address], [place] [address] Primary Staff Physician Cardiology 03/22/22 Certified Registered Nurse Anesthetist Relationship Specialty Start Date End Date Ita Tuttle MD [address] [place] [address], [place] [address] Primary Staff Physician Cardiology 03/22/22 Certified Registered Nurse Anesthetist Relationship Specialty Start Date End Date Ita Tuttle MD [address] [place] [address], [place] [address] Primary Staff Physician Cardiology 03/22/22 Certified Registered Nurse Anesthetist Relationship Specialty Start Date End Date Ita Tuttle MD [address] [place] [address], [place] [address] Primary Staff Physician Cardiology 03/22/22 Certified Registered Nurse Anesthetist Relationship Specialty Start Date End Date Ita Tuttle MD [address] [place] [address], [place] [address] Primary Staff Physician Cardiology 03/22/22 Certified Registered Nurse Anesthetist Relationship Specialty Start Date End Date Ita Tuttle MD [address] [place] [address], [place] [address] Primary Staff Physician Cardiology 03/22/22 Certified Registered Nurse Anesthetist Relationship Specialty Start Date End Date Ita Tuttle MD [address] [place] [address], [place] [address] Primary Staff Physician Cardiology 03/22/22 Certified Registered Nurse Anesthetist Relationship Specialty [place] [address] [place] [address] Primary Staff Physician Cardiology 03/22/22 Certified Registered Nurse Anesthetist Relationship Specialty [place] [address] [place] [address] Primary Staff Physician Cardiology 03/22/22 Certified Registered Nurse Anesthetist Relationship Specialty [place] [address] [place] [address] Primary Staff Physician Cardiology 03/22/22 Certified Registered Nurse Anesthetist Relationship Specialty Start Date End Date Ita Tuttle MD [address] [place] [address] Primary Staff Physician Cardiology 03/22/22 Certified Registered Nurse Anesthetist Relationship Specialty [place] [address] [place] [address] Primary Staff Physician Cardiology 03/22/22 Certified Registered Nurse Anesthetist Relationship Specialty Start Date End [place] [id number] [place] [address] Primary Staff Physician Cardiology 03/22/22 Certified Registered Nurse Anesthetist Relationship Specialty Start Date [place]uttle [place] [id number] [place] [address] Primary Staff Physician Cardiology 03/22/22 Team Status: Active Member Role Status Dates Linda Jansen PA-C Primary Care Provider Active Team Status: [...] 23, 2024 End: January 23, 2024 Linda Jansen PA-C Primary Care Provide r, Referring Provider Active Start: January 23, 2024 End: January 23, 2024 Certified Registered Nurse Anesthetist Relationship Specialty [place] [address] [place] [address] Primary Staff Physician Cardiology 03/22/22 Certified Registered Nurse Anesthetist Relationship Specialty [place] [address] [place] [address] Primary Staff Physician Cardiology 03/22/22 Team Status: [...] April 23, 2024 End: April 23, 2024 Certified Registered Nurse Anesthetist Relationship Specialty Start Date End Date Linda Jansen PA [address] [facility] [address] [place] [address] PCP - General Family Medicine 08/06/23 Linda Jansen PA [address] [facility] [address] [place] [address] PCP - Medical [facility] 02/22/23 08/24/99 Certified Registered Nurse Anesthetist Relationship Specialty Start Date End Date Linda Jansen PA [address] [facility] [address] [place] [address] PCP - General [facility] 08/06/23 Linda Jansen PA [address] [facility] [address] [place] [address] PCP - [facility] 02/22/23 08/24/99 Certified Registered Nurse Anesthetist Relationship Specialty Start Date End Date Linda Jansen PA [address] [facility] [address] [place] [address] PCP - [facility] 08/06/23 Linda Jansen PA [address] [facility] [address] [place] [address] PCP - [facility] 02/22/23 08/24/99 Certified Registered Nurse Anesthetist Relationship Specialty Start Date End Date Linda Jansen PA [address] [facility] [address] [place] [address] PCP - [facility] 08/06/23 Linda Jansen PA [address] [facility] [address] [place] [address] PCP - [facility] 02/22/23 08/24/99 Certified Registered Nurse Anesthetist Relationship Specialty Start Date End Date Linda Jansen PA [address] [facility] [address] [place] [address] PCP - [facility] 08/06/23 Linda Jansen PA [address] [facility] [address] [place] [address] PCP - [facility] 02/22/23 08/24/99 Certified Registered Nurse Anesthetist Relationship Specialty Start Date End Date Linda Jansen PA [address] [facility] [address] [place] [address] PCP - General Family Medicine 08/06/23 Linda Jansen PA [address] [facility] [address] [place] [address] PCP - Medical [facility] [facility] 02/22/23 08/24/99 Certified Registered Nurse Anesthetist Relationship Specialty [place] [address] [place], [place] [id number] Primary Staff Physician Cardiology 03/22/22 Certified Registered Nurse Anesthetist Relationship Specialty Start Date End Date Linda Jansen PA [address] [facility] [address] [place] [address] PCP - General Family Medicine 08/06/23 Linda Jansen PA [address] [facility] [address] [place] [address] PCP - Medical [facility] [facility] 02/22/23 08/24/99 Certified Registered Nurse Anesthetist Relationship Specialty Start Date End Date Linda Jansen PA [address] [facility] [address] [place] [address] PCP - General Family Medicine 08/06/23 Certified Registered Nurse Anesthetist Relationship Specialty Start Date End Date Linda Jansen PA [address] [facility] [address] [place] [address] PCP - General Family Medicine 08/06/23 Certified Registered Nurse Anesthetist Relationship Specialty Start Date End Date Linda Jansen PA [address] [facility] [address] [place] [address] PCP - General Family Medicine 08/06/23 Certified Registered Nurse Anesthetist Relationship Specialty Start Date End Date Linda Jansen PA [address] [facility] [address] [place] [address] PCP - General Family Medicine 08/06/23 Linda Jansen PA [address] [facility] [address] [place] [address] PCP - [facility] [facility] 02/22/23 08/24/99 Certified Registered Nurse Anesthetist Relationship Specialty [place] [address] [place] [address] Primary Staff Physician Cardiology 03/22/22 Certified Registered Nurse Anesthetist Relationship Specialty Start Date End Date Linda Jansen PA [address] [facility] [address] [place] [address] PCP - General Family Medicine 08/06/23 Linda Jansen PA [address] [facility] [address] [place] [address] PCP - [facility] [employer] 02/22/23 08/24/99 Team Status: Active Member Role Status Dates NON STAFF Primary Care Provider Active Team Status: Active Member Role Status Dates Sedrick Ye MD Primary Care Provider Active S tart: November 12, 2024 Christian Carlos II, DO Attending Provider Active Start: November 12, 2024 Linda Jansen [employer] ENFORCEMENT AGENT-C Referring Provider Active St art: November 12, 2024 Team Status: Inactive Member Role Status Dates NON STAFF Primary Care Provider Active Start: November 30, 2024 End: November 30, 2024 Russell Gómez - DENNY , DO [facility] Attending Provider Active Start: November 30, 2024 End: November 30, 2024 Certified Registered Nurse Anesthetist Relationship Specialty [place] [address] [place] [address] Primary Staff Physician Cardiology 03/22/22 Certified Registered Nurse Anesthetist Relationship Specialty Start Date End Date Linda Jansen PA [address] [facility] [address] [place] [address] PCP - General Family Medicine 08/06/23 Linda Jansen PA [address] [facility] [address] [place] [address] PCP - Medical [place] [employer] 02/22/23 08/24/99 Certified Registered Nurse Anesthetist Relationship Specialty Start Date End Date Linda Jansen PA [address] [facility] [address] [place] [address] PCP - General Family Medicine 08/06/23 Linda Jansen PA [address] [facility] [address] [place] [address] PCP - Medical [place] [employer] 02/22/23 08/24/99 Team Status: Active Member [...] February 19, 2025 End: February 19, 2025 Certified Registered Nurse Anesthetist Relationship Specialty Start Date End Date Linda Jansen PA [address] [facility] [address] [place] [address] PCP - General Family Medicine 08/06/23 Linda Jansen PA [address] [facility] [address] [place] [address] PCP - Medical [facility] 02/22/23 08/24/99 Team Status: Inactive Member Role [...] Provider Active St art: March 04, 2025 Certified Registered Nurse Anesthetist Relationship Specialty [place] [address] [place] [address] Primary Staff Physician Cardiology 03/22/22 Certified Registered Nurse Anesthetist Relationship Specialty Start Date End Date Linda Jansen PA [address] [facility] [address] [place] [address] PCP - General Family Medicine 08/06/23 Certified Registered Nurse Anesthetist Relationship Specialty Start Date End Date Linda Jansen PA [address] [facility] [address] [place] [address] PCP - General Family Medicine 08/06/23 Certified Registered Nurse Anesthetist Relationship Specialty Start Date End Date Linda Jansen PA [address] [facility] [address] [place] [address] PCP - General Family Medicine 08/06/23 Team Status: Inactive Member Role Status Dates [facility] [place] Primary Care Provider Active Start: May 13, 2025 End: May 13, 2025 [facility] [place] Attending Provider Active Start: May 13, 2025 End: May 13, 2025 Team Status: Active Member Role Status Dates [facility] [place] Primary Care Provider Active Start: May 13, 2025 Christian Carlos II, DO Attending Provider Active Start: May 13, 2025 Team Status: Active Member Role Status Dates Christian Carlos II, DO Attending Provider Active Start: May 13, 2025 [facility] [place] Primary Care Provider Active Start: May 13, 2025 [facility] [place] Referring Provider Active St art: May 13, 2025 Goals (unrecognized section and content) Goals may [...] BE BASED ON THE PRIMARY CLINICAL RECORDS. [facility]. provides no warranty or guarantee of the accuracy or completeness of information in this document.
[2025-05-16 07:09] LABS: Hematocrit 27.9 % (42.0-54.0); Hemoglobin 9.2 g/dL (14.0-18.0); Mean Corpuscular HGB Conc 33.0 g/dL (29.9-35.2); Mean Corpuscular Hemoglobin 37.2 pg (25.9-34.0); Mean Corpuscular Volume 113.0 fL (80.0-94.0); Platelet Count 148 10^3/uL (150-450); Red Blood Count 2.47 10^6/uL (4.70-6.10); White Blood Count 26.8 10^3/uL (4.0-11.0)
[2025-05-16 07:17] LABS: Alanine Aminotransferase 32 U/L (16-63); Albumin Globulin Ratio 1.6; Albumin Level 3.6 g/dL (3.4-5.0); Alkaline Phosphatase 75 U/L (46-116); Anion Gap 11.4; Aspartate Amino Transferase 23 U/L (15-37); Blood Urea Nitrogen 19.0 mg/dL (7.0-18.0); Calcium 8.8 mg/dL (8.5-10.1); Carbon Dioxide 30.4 mmol/L (21.0-32.0); Chloride 103 mmol/L (98-107); Estimated GFR (African America >60 (>=60 mL/min/1.73m^2); Estimated GFR (Non-African Ame >60 (>=60 mL/min/1.73m^2); Globulin 2.3 g/dL; Glucose 89 mg/dL (74-106); Potassium 3.8 mmol/L (3.5-5.1); Sodium 141 mmol/L (136-145); Total Protein 5.9 g/dL (6.4-8.2)
[2025-05-16 08:20] LABS: Basophils Abs Manual 0.00 10^3/uL (0.00-0.10); Basophils Percent Manual 0.0 % (0.2-2.0); Eosinophils Absolute Manual 0.00 10^3/uL (0.00-0.70); Eosinophils Percent Manual 0.0 % (0.9-7.0); Lymphocytes Absolute Manual 19.29 10^3/uL (1.20-3.80); Lymphocytes Percent Manual 72.0 % (20.5-60.0); Monocytes Absolute Manual 0.53 10^3/uL (0.30-0.80); Monocytes Percent Manual 2.0 % (1.7-12.0); Segmented Neut Absolute Manual 6.96 10^3/uL (1.4-6.5); Segmented Neutrophils % Manual 26.0 (43.0-75.0); Smudge Cells SEEN
[2025-05-16 08:24] LABS: Anisocytosis 1+; Macrocytosis 1+
== END 2025-05-16 06:25 | disposition home or self-care (01) ==
LOC: LAB 06:34
PROVIDERS: PCP Physician Assistant
DX: D72.820 Lymphocytosis (symptomatic) (principal)
CPT/HCPCS: 36415; 80053; 85007; 85027

== ENCOUNTER 2025-05-19 06:20 | Outpatient (OUT) | payer MEDICARE, SELFPAY ==
--- OUTSIDE RECORDS SUMMARY | 2025-05-19 06:28 | XMS_ITS | CCD ---
Author Organization [facility] Care Team Providers Care Data Entry Analyst Name Role Phone Sedrick Ye Unavailable Unavailable Unavailable Unavailable Primary Care Provider UnavailIta Lockwood MD Unavailable [phone] Ita Tuttle MD Unavailable Ita Tuttle MD Unavailable ITA TUTTLE Referring [...] OLSEN Attending Unavailable Ita Tuttle MD Unavailable Iesha Gamino Attending Unavailable Iesha Gamino Attending Unavailable Iesha Gamino Attending Unavailable Iesha Gamino Referring Unavailable MD Sedrick Ye Primary Care Provider [phone] DO Christian Carlos II Attending Provider [phone] NENO JansenC Linda Referring Provider MD Sedrick Ye Primary Care Provider DO Christian Carlos II Attending Provider Hemjhonatan, BASEBALL SCOUT-C Linda Referring Provider Hemmer Linda PIEDRA Primary Care Provider [phone] HemLinda Donovan Unavailable TONY ARMSTRONG Attending Unavaila ble WATTAR BILL R Referring Unavailable WATTAR BILL R Attending Unavailable WATTAR BILL R Referring Unavailable WATTAR BILL Andrew Attending Unavailable Sedrick Ye MD Primary Care Provider Christian Carlos DO Attending Provider Hemmer BASEBALL SCOUT-CLinda Referring Provider NON STAFF Primary Care Provider Unavailjean-paul whipple [facility] Russell CAMACHO Attending Provider Christian Carlos DO Attending Provider Hemjhonatan BASEBALL SCOUT-CLinda Primary Care Provider Hannah Queen APRN Attending Provider [phone] Sedrick Ye MD Primary Care Provider [phone] Hemjhonatan BASEBALL SCOUT-CLinda Referring Provider LINDA JANSEN Attending Unavailable KATIUSKA IRBYSON A Referring Unavailable KATIUSKA IRBYSON A Attending Unavailable BROWN, EULALIO A Referring Unavailable BROWN, EULALIO A Referring Unavailable KATIUSKA IRBYSON A Attending Unavailable KATIUSKA IRBYSON A Referring Unavailable GRACE HONEYCUTT Attending Unavailable LINDA JANSEN Referring Unavailable SEDRICK LYONS Attending Unavailable BUCIO V, GRACE Attending Unavailable KATIUSKA IRBYSON A Attending Unavailable MAHAMED, EULALIO A Referring Unavailable EULALIO IRBY A Attending Unavailable EULALIO IRBY A Referring Unavailable LINDA JANSEN Attending Unavailable EULALIO IRBY A Attending Unavailable LINDA JANSEN Attending Unavailable EULALIO IRBY Referring Unavailable EULALIO IRBY Referring Unavailable EULALIO IRBY Referring Unavailable EULALIO IRBY Attending Unavailable EULALIO IRBY Referring Unavailable Inderjit BASEBALL SCOUT-C, Linda Primary Care Provider Christian Carlos DO Attending Provider Gracie Singh Attending Provider Inderjit BASEBALL SCOUT-Linda Long Referring Provider [phone] Linda Jansen Primary Care Unavailable Breanna IIChristian Admitting Unavaila ble Adamowicz IIChristian Attending Unavaila ble NON STAFF Primary Care Unavailable Hannah Queen Admitting Unavailable Hannah Queen Attending Unavailable Linda Jansen Primary Care Unavailable Linda Jansen Referring Unavailable Breanna IIChristian Admitting Unavaila ble Breanna IIChristian Attending Unavaila ble NON STAFF Primary Care [facility] Unavailable Medications Current Medications Medication Drug [...] 06-30-20 24 take 1 tablet by mouth at bedtime doxazosin (Cardura) 4 MG tablet Take 1 tablet by mouth at bedtime 05/25/2023 Active Start: 01-17-2023 End: 07-31-2023 take 1.5 [...] 1 mg oral tablet (1 source) Start: take 1 tablet by mouth once daily hydroCHLOROthiazide 25 mg / valsartan 320 mg oral tablet (20 sources) Thiazide Diuretic, Angiotensin 2 Receptor Frances Start: take 1 tablet by mouth once daily [...] (20 sources) Dihydropyridine Calcium Channel Frances Start: take 1 tablet by mouth once daily [...] daily Start: 10-02-2018 take 1 tablet by [facility] twice daily Nifedipine 30 mg Tablet Extended Release 24hr Active 30 MG PO Twice daily October 02, 2018 1:00am take 30 mg by mouth twice daily NIFEDIPINE ER ORAL Take 30 mg by mouth twice daily. 0 Active take 1 tablet by [facility] twice daily NIFEdipine ER 30 MG Oral Tablet Extended Release 24 Hour Take 1 tablet twice daily Quantity: 0 Refills: 0 Ordered: 26-Jun-2021 DO Active Comment on above: Take 30 mg by mouth twice daily. Take 1 tablet by [facility] once daily. perflutren lipid microspheres 1.3 [...] (BD POSIFLUSH) valsartan 320 mg oral tablet (10 sources) Angiotensin 2 Receptor Frances Start: 03-01-2025 [...] hours as needed for pain Hydrocodone-Acetam inophen ([place]) 5-325 mg tablet Discontinued 1 - 2 [...] mouth twice daily. Take 1 tablet by [facility] twice daily. aspirin 81 mg delayed release [...] tablet Discontinued 100 MG PO Twice daily 10 July 14, 2020 1:00am August 28, 2021 3:10pm [...] 03/22/2022 Discontinued (Course of therapy completed) Start: 04-20-2022 inject 1 dose intravenously on ce iv [...] EVERY DAY Take 1 tablet by marco [facility] once daily. sildenafil 100 mg oral tablet [...] aortic ectasia] Onset: 02-09-2024 Chronic Cardiac dysrhythmias (11 sources) Palpitations; Translations: [Palpitations] Episodic Coagulation and hemorrhagic disorders (20 sources) Thrombophilia; Translations: [Other thrombophilia] Onset: 02-09-2024 02-09-2024 Chronic Coronary atherosclerosis and other heart disease (1 source) Calcification of coronary artery; Translations: [Atherosclerotic heart disease of [place] coronary artery without angina pectoris] 09-21-2024 Chronic [...] pain; Translations: [Chest pain, unspecified] Episodic Osteoarthritis (8 sources) Degenerative joint disease of ankle AND/OR [...] Translations: [Acute maxillary sinusitis, unspecified] 09-15-2024 Episodic Peripheral and visceral atherosclerosis (20 sources) Arteriosclerotic [...] calculi] Onset: 04-14-2023 Resolved: 02-09-2024 02-09-2024 Episodic Cardiac dysrhythmias (20 sources) Paroxysmal atrial fibrillation; Translations: [Atrial fibrillation] Onset: 09-27-2021 Resolved: 06-09-2024 09-27-2021 Chronic Comment on above: Problem List clean-u p per request of Phys. 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 EHR Cmte Unclassified (3 sources) Never smoked tobacco; Translations: [Never a smoker] Viral infection (20 sources) Disease caused by 2019-nCoV; Translations: [COVID-19] Onset: 08-05-2023 Resolved: 02-09-2024 08-06-2023 Episodic Comment on above: Problem List clean-u p per request of Phys. EHR Cmte Results Test Name Value Interpretation Reference Range Facility ALL CBC WITH AUTO DIFFon Erythrocyte distribution width (RBC) [Ratio] 16.6 % High 11.0 - 15.0 % [facility] Hematocrit (Bld) [Volume fraction] 27.9 % Low 42.0 - 54.0 % [facility] Hemoglobin (Bld) [Mass/Vol] 9.2 g/dL Low 14.0 - 18.0 g/dL [facility] Interpretation and review of laboratory results Abnormal [facility] MCH (RBC) [Entitic mass] 37.2 pg High 25.9 - 34.0 pg [facility] MCHC (RBC) [Mass/Vol] 33 g/dL 29.9 - 35.2 g/dL [facility] MCV (RBC) [Entitic vol] 113 fL High 80.0 - 94.0 fL [facility] Platelet mean volume (Bld) [Entitic vol] 9.2 fL Low 9.5 - 13.5 fL [facility] TB PLT 148 Low [facility] TB RBC 2.47 Low [facility] WBC 26.8 High [facility] Antibody Identificationon Antibody Identification WARM [facility] Comment on above: Result Comment: Auto -Anti-D Auto-Anti-e Testing performed and reported by [facility]. Blood Bank Pathologist Michael craven 05-16-2025 Blood Bank Pathologist Review Sent to Pathology Normal [facility] Comment on above: Result Comment: PERF ORMED BY: [facility] [address] [place] [address] PATHOLOGIST VETERINARY ATTENDANT DANIELLE QUINONES M.D. [place] BB Sendou moises 05-13-2025 [place] BB Sendout Sent to [facility] Normal [facility] Comment on above: Result Comment: Sent to [facility] for further testing. Final report to follow. PERFORMED BY: [facility] [address] [place] [address] PATHOLOGIST VETERINARY ATTENDANT DANIELLE QUINONES M.D. Complement DATon 05-13-2025 Complement C3B,-C3D AHG Positive Critically abnormal Negative [facility] Comment on above: Result Comment: PERF ORMED BY: [place] [id number] PATHOLOGIST VETERINARY ATTENDANT DANIELLE QUINONES M.D. Direct Antiglobulin Teston 0 05-13-2025 IgG AHG Positive Critically abnormal Negative [facility] Direct [place] 05-13-2025 Polyspecific AHG Positive Critically abnormal Negative [facility] Comment on above: Result Comment: PERF ORMED BY: [place] [address] PATHOLOGIST VETERINARY ATTENDANT DANIELLE QUINONES M.D. Alanine aminotransferase [En zymatic activity/volume] in Serum or PlasmaOrdered By: Christian Carlos on 05-12-2025 ALT [Catalytic activity/Vol] 23 U/L Normal 7-52 [facility] Comment on above: Performed By: #### S CAN CBC, LDH, CMP #### [facility] [address] [place] [address] [place] Albumin [Mass/volume] in Ser um or Plasma by Bromocresol green (BCG) dye binding methoOrdered By: Christian Carlos on 05-12-2025 Albumin BCG dye [Mass/Vol] 4.2 g/dL 3.5-5.7 [facility] Alkaline phosphatase [Enzyma tic activity/volume] in Serum or PlasmaOrdered By: Christian Carlos on 05-12-2025 ALP [Catalytic activity/Vol] 69 U/L Normal 34-104 [facility] Comment on above: Performed By: #### S CAN CBC, LDH, CMP #### [facility] [address] [place] [address] [place] Anisocytosis [Presence] in B lood by Light microscopyOrdered By: Christian Carlos on 05-12-2025 Anisocytosis Ql (Bld) Slight Normal [facility] Comment on above: Performed By: #### S CAN CBC, LDH, CMP #### [facility] [address] [place] [address] [place] Aspartate aminotransferase [ Enzymatic activity/volume] in Serum or PlasmaOrdered By: Christian Carlos on 05-12-2025 AST [Catalytic activity/Vol] 28 U/L Normal 13-39 [facility] Comment on above: Performed By: #### S CAN CBC, LDH, CMP #### [facility] [address] [place] [address] [place] Basophils [#/volume] in Bloo d by Automated countOrdered By: Christian Carlos on 05-12-2025 Basophils (Bld) [#/Vol] 0.1 10*3/uL Normal 0.0-0.2 [facility] Comment on above: Performed By: #### S CAN CBC, LDH, CMP #### [facility] [address] [place] [address] [place] Basophils/100 leukocytes in Blood by Automated countOrdered By: Christian Carlos on 05-12-2025 Basophils/100 WBC (Bld) 0.3 % Normal . [facility] Comment on above: Performed By: #### S CAN CBC, LDH, CMP #### [facility] [address] [place] [address] [place] Bilirubin.total [Mass/volume ] in Serum or PlasmaOrdered By: Christian Carlos on 05-12-2025 Bilirubin [Mass/Vol] 3.4 mg/dL High 0.3-1.0 [facility] Comment on above: Samples from patient [...] #### S CAN CBC, LDH, CMP #### [facility] [address] [place] [address] [place] Calcium [Mass/volume] in Ser um or PlasmaOrdered By: Christian Carlos on 05-12-2025 Calcium [Mass/Vol] 8.7 mg/dL Normal 8.6-10.3 [facility] Comment on above: Performed By: #### S CAN CBC, LDH, CMP #### [facility] [address] Carbon dioxide, total [Moles /volume] in Serum or PlasmaOrdered By: Christian Carlos on 05-12-2025 CO2 [Moles/Vol] 34.3 mmol/L High 21.0-31.[address] [facility] Comment on above: Performed By: #### S CAN CBC, LDH, CMP #### [address] Chloride [Moles/volume] in S hesham or PlasmaOrdered By: Christian Carlos on 05-12-2025 Chloride [Moles/Vol] 104 mmol/L Normal 98-107 [facility] Comment on above: Performed By: #### S CAN CBC, LDH, CMP #### [address] Comprehensive Metabolic Pane aline 05-12-2025 Albumin [Mass/Vol] 4.2 g/dL Normal 3.5-5.7 [facility] Comment on above: Performed By: #### S CAN CBC, LDH, CMP #### [place] [address] [place] Creatinine Clr Calc Pharmacy 87.86 Normal [facility] Comment on above: Performed By: #### S CAN CBC, LDH, CMP #### [place] [address] [place] GFR/1.73 sq M.predicted MDRD (S/P/Bld) [Vol rate/Area] mL/min/{1.73_m2} Normal [facility] Comment on above: Performed By: #### S CAN CBC, LDH, CMP #### [address] Creatinine [Mass/volume] in Serum or PlasmaOrdered By: Christian Carlos on 05-12-2025 Creatinine [Mass/Vol] 0.92 mg/dL Normal 0.70-1.30 [facility] Comment on above: Performed By: #### S CAN CBC, LDH, CMP #### [address] Dacrocytes [Presence] in Blo od by Light microscopyOrdered By: Christian Carlos on 05-12-2025 Dacrocytes LM Ql (Bld) Slight Fi [facility] Eosinophils [#/volume] in Bl ood by Automated countOrdered By: Christian Carlos on 05-12-2025 Eosinophils (Bld) [#/Vol] 0.0 10*3/uL Normal 0.0-0.45 [facility] Comment on above: Performed By: #### S CAN CBC, LDH, CMP #### [address] Eosinophils/100 leukocytes i n Blood by Automated countOrdered By: Christian Carlos on 05-12-2025 Eosinophils/100 WBC (Bld) 0.1 % Normal . [facility] Comment on above: Performed By: #### S CAN CBC, LDH, CMP #### [address] Erythrocyte Sedimentation Ra jennifer 05-12-2025 ESR (Bld) [Velocity] mm/h Normal 0-19 [facility] Comment on above: Result Comment: PERF ORMED BY: [place] [address] PATHOLOGIST VETERINARY ATTENDANT DANIELLE QUINONES M.D. Performed By: #### S CAN CBC, LDH, CMP #### [address] Erythrocyte distribution wid th [Ratio] by Automated countOrdered By: Christian Carlos on 05-12-2025 Erythrocyte distribution width (RBC) [Ratio] 16.6 % High 12.0-14.8 [facility] Comment on above: Performed By: #### S CAN CBC, LDH, CMP #### [address] Erythrocyte morphology findi ng [Identifier] in BloodOrdered By: Christian Carlos on 05-12-2025 RBC morphology finding Nom (Bld) N/A [facility] Erythrocyte sedimentation ra te by Photometric methodOrdered By: Christian Carlos on 05-12-2025 ESR Photometric method (Bld) [Velocity] < 1 mm/hr 0-19 [facility] Erythrocytes [#/volume] in B lood by Automated countOrdered By: Christian Carlos on 05-12-2025 RBC (Bld) [#/Vol] 2.39 10*6/uL Low 3.90-5.60 [facility] Comment on above: Performed By: #### S CAN CBC, LDH, CMP #### [facility] [address] Ferritin [Mass/volume] in Se rum or PlasmaOrdered By: Christian Carlos on 05-12-2025 Ferritin [Mass/Vol] 179.1 ng/mL Normal 23.9-336.2 [facility] Comment on above: Performed By: #### S CAN CBC, LDH, CMP #### [facility] [address] Folate [Mass/volume] in Seru m or PlasmaOrdered By: Christian Carlos on 05-12-2025 Folate [Mass/Vol] 19.3 ng/mL >5.9 [facility] Comment on above: Folate reference ran ge: >5.9 ng/mlThe WHO technical consultation on folate and vitamin [id number] has determined that folate concentrations lessthan 4 ng/ml are considered deficient. Glomerular filtration rate [ Volume Rate/Area] in Serum, Plasma or Blood by CreatinineOrdered By: Christian Carlos on 05-12-2025 Glomerular filtration rate [Volume Rate/Area] in Serum, Plasma or Blood by Creatinine > 60.0 mL/Min [facility] Glucose [Mass/volume] in Ser um or PlasmaOrdered By: Christian Carlos on 05-12-2025 Glucose [Mass/Vol] 88 mg/dL Normal 70-100 [facility] Comment on above: ADA recommended refe rence rangeRandom Glucose Reference Range is dependent on time and content of last meal. Glucose of more than 200 mg/dL in a nonstressed, ambulatory subject supports the diagnosis of Diabetes Mellitus. Result Comment: [place] Glucose Reference Range is dependent on time and content of last meal. Glucose of more than 200 mg/dL in a nonstressed, ambulatory subject supports the diagnosis of Diabetes Mellitus. ADA recommended reference range Performed By: #### S CAN CBC, LDH, CMP #### [facility] [address] [place] [address] [place] Haptoglobinon 05-12-2025 HAPTOGLOBIN mg/dL Low 44 - 215 mg/dL [facility] Interpretation and review of laboratory results Abnormal [facility] Haptoglobin <30 Low 44-215 [facility] Comment on above: Result Comment: PERF ORMED BY: [place] [address] PATHOLOGIST VETERINARY ATTENDANT DANIELLE QUINONES M.D. Performed By: #### S CAN CBC, LDH, CMP #### [address] Haptoglobin [Mass/volume] in Serum or PlasmaOrdered By: Christian Carlos on 05-12-2025 Haptoglobin [Mass/Vol] mg/dL Low 44-215 [facility] Hematocrit [Volume Fraction] of Blood by Automated countOrdered By: Christian Carlos on 05-12-2025 Hematocrit (Bld) [Volume fraction] 26.6 % Low 38.8-50.0 [facility] Comment on above: Performed By: #### S CAN CBC, LDH, CMP #### [address] Hemoglobin [Mass/volume] in BloodOrdered By: Christian Carlos on 05-12-2025 Hemoglobin (Bld) [Mass/Vol] 8.9 g/dL Low 13.0-17.0 [facility] Comment on above: Performed By: #### S CAN CBC, LDH, CMP #### [address] Hypochromia LM Ql (Bld)Order ed By: Christian Carlos on 05-12-2025 Hypochromia Ql (Bld) Slight [facility] Iron [Mass/volume] in Serum or PlasmaOrdered By: Christian Carlos on 05-12-2025 Iron [Mass/Vol] 139 ug/dL Normal 50-212 [facility] Comment on above: Performed By: #### S CAN CBC, LDH, CMP #### [facility] [address] Iron and TIBC Profileon 04-25 % Iron Saturation 46.2 % Normal 20-50 [facility] Comment on above: Performed By: #### S CAN CBC, LDH, CMP #### [facility] [address] Total Iron Binding Capacity 301 ug/dL Normal 255-450 [facility] Comment on above: Performed By: #### S CAN CBC, LDH, CMP #### [facility] [address] [place] [address] Leukocytes [#/volume] correc christophe for nucleated erythrocytes in Blood by Automated counOrdered By: Christian Carlos on 05-12-2025 WBC corrected for nucl RBC Auto (Bld) [#/Vol] 24.7 10*3/uL High 4.1-10.5 [facility] Leukocytes [#/volume] in Blo od by Automated countOrdered By: Christian Carlos on 05-12-2025 WBC (Bld) [#/Vol] 24.7 10*3/uL High 4.1-10.5 [facility] Comment on above: Performed By: #### S CAN CBC, LDH, CMP #### [facility] [address] Lymphocytes [#/volume] in Bl ood by Automated countOrdered By: Christian Carlos on 05-12-2025 Lymphocytes (Bld) [#/Vol] 18.5 10*3/uL High 1.00-4.8 [facility] Comment on above: Performed By: #### S CAN CBC, LDH, CMP #### [facility] [address] [place] [address] [place] Lymphocytes/100 leukocytes i n Blood by Automated countOrdered By: Christian Carlos on 05-12-2025 Lymphocytes/100 WBC (Bld) 74.6 % Normal . [facility] Comment on above: Performed By: #### S CAN CBC, LDH, CMP #### [facility] [address] [place] [address] [place] MCH [Entitic mass] by Automa christophe countOrdered By: Christian Carlos on 05-12-2025 MCH (RBC) [Entitic mass] 37.3 pg High 27.5-35.2 [facility] Comment on above: Performed By: #### S CAN CBC, LDH, CMP #### [facility] [address] [place] [address] MCHC Auto (RBC) [Mass/Vol]Or dered By: Christian Carlos on 05-12-2025 MCHC (RBC) [Mass/Vol] 33.5 g/dL 32.5-35.6 [facility] MCV [Entitic volume] by Auto mated countOrdered By: Christian Carlos on 05-12-2025 MCV (RBC) [Entitic vol] 111.3 fL High 83.5-101 [facility] Comment on above: Performed By: #### S CAN CBC, LDH, CMP #### [place] [address] [place] Microcytes LM Ql (Bld)Ordere d By: Christian Carlos on 05-12-2025 Microcytes Ql (Bld) Marked [facility] Monocytes [#/volume] in Bloo d by Automated countOrdered By: Christian Carlos on 05-12-2025 Monocytes (Bld) [#/Vol] 0.6 10*3/uL Normal 0.0-0.8 [facility] Comment on above: Performed By: #### S CAN CBC, LDH, CMP #### [place] [address] [place] Monocytes/100 leukocytes in Blood by Automated countOrdered By: Christian Carlos on 05-12-2025 Monocytes/100 WBC (Bld) 2.6 % Normal . [facility] Comment on above: Performed By: #### S CAN CBC, LDH, CMP #### [facility] [address] Neutrophils [#/volume] in Bl ood by Automated countOrdered By: Christian Carlos on 05-12-2025 Neutrophils (Bld) [#/Vol] 5.5 10*3/uL Normal 1.8-7.7 [facility] Comment on above: Performed By: #### S CAN CBC, LDH, CMP #### [facility] [address] Neutrophils/100 leukocytes i n Blood by Automated countOrdered By: Christian Carlos on 05-12-2025 Neutrophils/100 WBC (Bld) 22.4 % Normal . [facility] Comment on above: Performed By: #### S CAN CBC, LDH, CMP #### [facility] [address] [place] [address] No Panel InformationOrdered By: Christian Carlos on 05-12-2025 Pharmacy Creatinine Clearance (Chem 87.86 [facility] Nucleated erythrocytes [Pres ence] in Blood by Automated countOrdered By: Christian Carlos on 05-12-2025 Nucleated RBC Auto Ql (Bld) 0.1 /100{WBC} 0-0.5 [facility] Platelet adequacy [Presence] in Blood by Light microscopyOrdered By: Christian Carlos on 05-12-2025 Platelets LM Ql (Bld) Normal Normal [facility] Platelet mean volume [Entiti c volume] in Blood by Automated countOrdered By: Christian Carlos on 05-12-2025 Platelet mean volume (Bld) [Entitic vol] 7.0 fL Normal 6.6-10.1 [facility] Comment on above: Performed By: #### S CAN CBC, LDH, CMP #### [facility] [address] [place] [address] Platelet morphology finding [Identifier] in BloodOrdered By: Christian Carlos on 05-12-2025 Platelet morphology finding Nom (Bld) Normal Normal [facility] Platelets [#/volume] in Bloo d by Automated countOrdered By: Christian Carlos on 05-12-2025 Platelets (Bld) [#/Vol] 178 10*3/uL Normal 150-450 [facility] Comment on above: Performed By: #### S CAN CBC, LDH, CMP #### [address] Polychromasia [Presence] in Blood by Light microscopyOrdered By: Christian Carlos on 05-12-2025 Polychromasia LM Ql (Bld) Moderate [facility] Potassium [Moles/volume] in Serum or PlasmaOrdered By: Christian Carlos on 05-12-2025 Potassium [Moles/Vol] 3.6 mmol/L Normal 3.5-5.1 [facility] Comment on above: Performed By: #### S CAN CBC, LDH, CMP #### [address] Protein [Mass/volume] in Ser um or PlasmaOrdered By: Christian Carlos on 05-12-2025 Protein [Mass/Vol] 5.8 g/dL Low 6.4-8.9 [facility] Comment on above: Performed By: #### S CAN CBC, LDH, CMP #### [address] Scan and CBCon 05-12-2025 Hypochromasia Slight Normal [facility] Comment on above: Performed By: #### S CAN CBC, LDH, CMP #### [address] Mean Corpuscular HGB Conc 33.5 g/dL Normal 32.5-35.6 [facility] Comment on above: Performed By: #### S CAN CBC, LDH, CMP #### [address] Microcytosis Marked Normal [facility] Comment on above: Performed By: #### S CAN CBC, LDH, CMP #### [address] NRBC% 0.1 /100{WBC} Normal 0-0.5 [facility] Comment on above: Performed By: #### S CAN CBC, LDH, CMP #### [address] Platelet Estimate Normal Normal Normal [facility] Comment on above: Performed By: #### S CAN CBC, LDH, CMP #### [address] Platelet Morphology Normal Normal Normal [facility] Comment on above: Performed By: #### S CAN CBC, LDH, CMP #### [address] Polychromasia Moderate Normal [facility] Comment on above: Performed By: #### S CAN CBC, LDH, CMP #### [address] Tear Drop Cells Slight Normal [facility] Comment on above: Performed By: #### S CAN CBC, LDH, CMP #### [address] White Blood Count 24.7 [CFU]/mL High 4.1-10.5 [facility] Comment on above: Performed By: #### S CAN CBC, LDH, CMP #### [address] Serum globulin measurement b y calculation (mass/volume)Ordered By: Crhistian Carlos on 05-12-2025 Globulin (S) [Mass/Vol] 1.6 g/dL [facility] Comment on above: Performed By: #### S CAN CBC, LDH, CMP #### [address] Serum or plasma albumin/glob ulin mass ratioOrdered By: Christian Carlos on 05-12-2025 Albumin/Globulin [Mass ratio] 2.6 {ratio} [facility] Comment on above: Performed By: #### S CAN CBC, LDH, CMP #### [address] Serum or plasma anion gap de terminationOrdered By: Christian Carlos on 05-12-2025 Anion gap [Moles/Vol] 7.3 mmol/L Normal 6.0-15.0 [facility] Comment on above: Performed By: #### S CAN CBC, LDH, CMP #### [facility] [address] [place] [address] Serum or plasma iron binding capacity measurement (mass/volume)Ordered By: Christian Carlos on 05-12-2025 Iron binding capacity [Mass/Vol] 301 ug/dL 255-450 [facility] Serum or plasma iron saturat ion measurement (mass fraction)Ordered By: Christian Carlos on 05-12-2025 Iron saturation [Mass fraction] 46.2 % 20-50 [facility] Sodium [Moles/volume] in Ser um or PlasmaOrdered By: Christian Carlos on 05-12-2025 Sodium [Moles/Vol] 142 mmol/L Normal 136-145 [facility] Comment on above: Performed By: #### S CAN CBC, LDH, CMP #### [facility] [address] [place] [address] Transferrin [Mass/volume] in Serum or PlasmaOrdered By: Christian Carlos on 05-12-2025 Transferrin [Mass/Vol] 215 mg/dL Normal 203-362 [facility] Comment on above: Performed By: #### S CAN CBC, LDH, CMP #### [facility] [address] [place] [address] Type and Screenon 05-12-2025 ABO and Rh group Nom (Bld) Blood group O Rh(D) positive Normal [facility] Comment on above: Result Comment: PERF ORMED BY: [place] [address] PATHOLOGIST VETERINARY ATTENDANT DANIELLE QUINONES M.D. US spleenon 05-12-2025 spleen [place] [address] Ultrasound Report Signed Patient: Darius Valera MR#: [id number] 10 : 1960 Acct:[id number] Age/Sex: 64 / M ADM Date: 05/12/25 Loc: Room: Type: REG RCR Attending Dr: Christian Carlos II, DO [...] Curry M.D. 05/12/2025 1:08 PM Dictation Location: [place] [address] Tech: Caterinamarietta Aguirre Transcribed By: WADE 05/12/25 1308 Dictated By: Joey Curry DO 05/12/25 1303 Signed By: 05/12/25 1308 Normal [facility] Urea nitrogen [Mass/volume] in Serum or PlasmaOrdered By: Christian Carlos on 05-12-2025 Urea nitrogen [Mass/Vol] 20 mg/dL Normal 7-25 [facility] Comment on above: Performed By: #### S CAN CBC, LDH, CMP #### [facility] [address] [place] [address] Vit. B12/Folate Profileon Folate 19.3 ng/mL Normal >5.9 [facility] Comment on above: Result Comment: Catarina te reference range: >5.9 ng/ml The WHO technical consultation on folate and vitamin b12 deficiencies has determined that folate concentrations less than 4 ng/ml are considered deficient. PERFORMED BY: [place] [address] PATHOLOGIST VETERINARY ATTENDANT DANIELLE QUINONES M.D. Performed By: #### S CAN CBC, LDH, CMP #### [facility] [address] [place] [address] Vitamin B12 ser/plasOrdered By: Christian Carlos on 05-12-2025 Cobalamin (Vitamin B12) [Mass/Vol] 492 pg/mL Normal 180-914 [facility] Comment on above: Performed By: #### S CAN CBC, LDH, CMP #### [facility] [address] ALL SED RATEon 05-09-2025 TBH SED RATE <1 NINF [facility] ECG COMPLETEon 04-04-2025 Atrial Rate 76 BPM [facility] Calculated P Mcfarlan 13 degrees [facility] Calculated R Mcfarlan 0 degrees [facility] Calculated T Mcfarlan 18 degrees [facility] P-R Interval 178 ms [facility] QRS Duration 86 ms [facility] QT Interval 378 ms [facility] QTC Calculation (Bazett) 425 ms [facility] Ventricular Rate 76 [facility]THM NORMAL ECG Confirmed by JADE DAS MD () on 04/04/2025 5:11:38 PM [facility] NAME : DARIUS VALERA PID : [id number] : 1960 Gender : Male Race : [...] by : , [facility] HEMOGLOBIN A1con 03-19-2025 HbA1c (Bld) [Mass fraction] [...] diagnosis of diabetes in children. According to [place] Diabetes Association (ADA) guidelines, hemoglobin A1c <7.0% represents optimal control in non- diabetic patients. Different metrics may apply to specific patient populations. Standards of Medical Care in Diabetes(ADA). Performed By: #### 5 363, 87655, 90000, 496, 7600 #### [facility] [address], [address] [place] [address] Tying In Machine Operator: Memo Marquis MD LIPID PANEL, [place] [address] Cholesterol [Mass/Vol] 140 mg/dL Normal <200 [facility] Comment on above: Order Comment: FASTI NG:YES FASTING: YES Performed By: #### 5 363, 81401, 30200, 496, 7600 #### [facility] [address], [address] [place], [place] [address] Tying In Machine Operator: Memo Marquis MD Cholesterol in HDL [Mass/Vol] 67 mg/dL Normal > OR = 40 [facility] Comment on above: Order Comment: FASTI NG:YES FASTING: YES Performed By: #### 5 363, 76634, 25702, 496, 7600 #### [facility] [address], [address] [place] [address] Tying In Machine Operator: Memo Marquis MD Cholesterol in LDL [...] LDL-C. Hilario VALDIVIA et al. ARNULFO. 2013;310(19): 2438-4911 (http://education.[employer].Vello App/faq/SJG582) Performed By: #### 5 363, 48479, 08326, 496, 7600 #### [facility] [address], [address] [place], [place] [address] Tying In Machine Operator: Memo Marquis MD Cholesterol.total/Chol esterol in HDL [Mass ratio] 2.1 {ratio} Normal <5.0 [facility] Comment on above: Order Comment: FASTI NG:YES FASTING: YES Performed By: #### 5 363, 74173, 61912, 496, 7600 #### [facility] [address], [address] [place] [address] Tying In Machine Operator: Memo Marquis MD NON HDL CHOLESTEROL 73 mg/dL (calc) Normal <130 [facility] Comment on above: Order Comment: FASTI NG:YES FASTING: YES Result Comment: For patients with diabetes plus 1 major ASCVD risk factor, treating to a non-HDL-C goal of <100 mg/dL (LDL-C of <70 mg/dL) is considered a therapeutic option. Performed By: #### 5 363, 31086, 60083, 496, 7600 #### [facility] [address], [address] [place] [address] Tying In Machine Operator: Memo Marquis MD Triglyceride [Mass/Vol] 53 mg/dL Normal <150 [facility] Comment on above: Order Comment: FASTI NG:YES FASTING: YES Performed By: #### 5 , 61245, 66452, 496, 7600 #### [facility] [address], [address] [place] [address] Tying In Machine Operator: Memo Marquis MD PSA, TOTALon 03-19-2025 PSA, TOTAL 0.62 ng/mL Normal < OR = 4.00 [facility] Comment on above: Result Comment: The total PSA value from this assay system is standardized against the WHO standard. The test result will be approximately 20% lower when compared to the equimolar-standardized total PSA ([place]). Comparison of serial PSA results should be interpreted with this fact in mind. This test was performed using the Siemens chemiluminescent method. Values obtained from different assay methods cannot be used interchangeably. PSA levels, regardless of value, should not be interpreted as absolute evidence of the presence or absence of disease. Performed By: #### 5 363, 37518, 21163, 496, 7600 #### [facility] [address], [address] [place] [address] Tying In Machine Operator: Memo Marquis MD TSH W/REFLEX TO FT4on 2024 TSH W/REFLEX TO FT4 0.97 mIU/L Normal 0.40-4.50 [facility] Comment on above: Performed By: #### 5 363, 32487, 01148, 496, 7600 #### [facility] [address] [address] Tying In Machine Operator: Memo Marquis MD VITAMIN D,25-OH,TOTAL,IAon 0 [...] D, (D2,D3), LC/MS/MS is recommended: order code 67892 (patients >2yrs). See Note 1 Note 1 For additional information, please refer to http://education.[employer]ze Tech/faq/XEG920 (This link is being provided for informational/ educational purposes only.) Performed By: #### 5 363, 58869, 54983, 496, 2680 #### [facility] [place] [id number] Tying In Machine Operator: Memo Marquis MD PATHOLOGY REQUEST FOR LAB CO RPon 02-15-2025 PATHOLOGY REQUEST FOR LAB REINA [facility] Comment on above: See report. Scanned copy available in EMR. [facility] Alanine aminotransferase [En zymatic activity/volume] in Serum or Plasmaon 02-10-2025 ALT [Catalytic activity/Vol] 31 U/L Normal 7-52 [facility] Comment on above: Performed By: #### S CAN CBC, LDH, CMP #### [address] Albumin [Mass/volume] in Ser um or Plasma by Bromocresol green (BCG) dye binding methoOrdered By: Christian Carlos on 02-10-2025 Albumin BCG dye [Mass/Vol] 4.7 g/dL 3.5-5.7 [facility] Alkaline phosphatase [Enzyma tic activity/volume] in Serum or Plasmaon 02-10-2025 ALP [Catalytic activity/Vol] 88 U/L Normal 34-104 [facility] Comment on above: Performed By: #### S CAN CBC, LDH, CMP #### [facility] [address] Anisocytosis [Presence] in B lood by Light microscopyOrdered By: Christian Carlos on 02-10-2025 Anisocytosis Ql (Bld) Slight Normal [facility] Comment on above: Performed By: #### S CAN CBC, LDH, CMP #### [facility] [address] Aspartate aminotransferase [ Enzymatic activity/volume] in Serum or Plasmaon 02-10-2025 AST [Catalytic activity/Vol] 38 U/L Normal 13-39 [facility] Comment on above: Performed By: #### S CAN CBC, LDH, CMP #### [facility] [address] [place] [address] [place] Basophils Auto (Bld) [#/Vol] Ordered By: Christian Carlos on 02-10-2025 Basophils (Bld) [#/Vol] N/A [facility] Basophils/100 WBC Auto (Bld) Ordered By: Christian Carlos on 02-10-2025 Basophils/100 WBC (Bld) N/A [facility] Bilirubin.total [Mass/volume ] in Serum or Plasmaon 02-10-2025 Bilirubin [Mass/Vol] 1.9 mg/dL High 0.3-1.0 [facility] Comment on above: Samples from patient s [...] #### S CAN CBC, LDH, CMP #### [place] [id number] [facility] COAGULATION PROFILEon 2024 aPTT Coag (Bld) [Time] 30.1 s 25.1 - 36.5 s [facility] Comment on above: A hematocrit value g reater than 55% may lead to inaccurate results in coagulation testing. Patients having hematocrit values >55% require a special collection tube for coagulation studies. Please contact the laboratory at [phone] for redraw instructions. INR Coag (PPP) [Relative time] 1 {INR} [facility] Comment on above: INR Therapeutic [...] 11.1 s 9.0 - 1 2.9 s [facility] Comment on above: A hematocrit value g reater than 55% may lead to inaccurate results in coagulation testing. Patients having hematocrit values >55% require a special collection tube for coagulation studies. Please contact the laboratory at [phone] for redraw instructions. STAT FOR [facility] guided bone marrow bx/asp iron 02-10-2025 CT guided bone marrow bx/aspir [facility] [place] [address] [place], [place] [id number] CT Scan Report Signed Patient: Darius Valera MR#: [id number] 10 : 1960 Acct:[id number] Age/Sex: 64 / M ADM Date: 02/10/25 Loc: CT Room: Type: [facility] Attending Dr: Christian Carlos II DO Copies [...] local anesthesia. Utilizing CT guidance, an 11-gauge CrossReader biopsy needle was advanced into the right [...] Jr., D.O. 02/10/2025 11:08 AM Dictation Location: [place] [address] Transcribed By: [facility] 02/10/25 1108 Dictated By: Garcia Vanegas Jr, DO 02/10/25 1102 Signed By: 02/10/25 1108 Normal [facility] Calcium [Mass/volume] in Ser um or Plasmaon 02-10-2025 Calcium [Mass/Vol] 9.3 mg/dL Normal 8.6-10.3 [facility] Comment on above: Performed By: #### S CAN CBC, LDH, CMP #### [facility] [address] [place] [id number] [place] Carbon dioxide, total [Moles /volume] in Serum or Plasmaon 02-10-2025 CO2 [Moles/Vol] 28.6 mmol/L Normal 21.0-31.0 [facility] Comment on above: Performed By: #### S CAN CBC, LDH, CMP #### [facility] [address] [place] [id number] [place] Chloride [Moles/volume] in S hesham or Plasmaon 02-10-2025 Chloride [Moles/Vol] 106 mmol/L Normal 98-107 [facility] Comment on above: Performed By: #### S CAN CBC, LDH, CMP #### [address] Coagulation Profileon 2024 aPTT Coag (Bld) [Time] 30.1 s Normal 25.1-36.5 [facility] Comment on above: Order Comment: STAT FOR CT Result Comment: A he matocrit value greater than 55% may lead to inaccurate results in coagulation testing. Patients having hematocrit values >55% require a special collection tube for coagulation studies. Please contact the laboratory at [phone] for redraw instructions. PERFORMED BY: [place] [address] PATHOLOGIST VETERINARY ATTENDANT DANIELLE QUINONES M.D. Performed By: #### P P ####[address] Comprehensive Metabolic Pane [facility] 02-10-2025 Albumin [Mass/Vol] 4.7 g/dL Normal 3.5-5.7 [facility] Comment on above: Performed By: #### S CAN CBC, LDH, CMP #### [address] CREATININE CLR CALC PHARMACY 93.99 Normal [facility] Comment on above: Result Comment: PERF ORMED BY: [place] [address] PATHOLOGIST VETERINARY ATTENDANT DANIELLE QUINONES M.D. Performed By: #### S CAN CBC, LDH, CMP #### [address] GFR/1.73 sq M.predicted MDRD (S/P/Bld) [Vol rate/Area] mL/min/{1.73_m2} Normal [facility] Comment on above: Performed By: #### S CAN CBC, LDH, CMP #### [address] Comprehensive metabolic pane aline 02-10-2025 Creatinine (U) [Mass/Vol] 0.86 mg/dL 0.70 - 1.30 mg/dL [facility] ESTIMATED GFR [facility] Globulin (S) [Mass/Vol] 2 g[facility] Interpretation and review of laboratory results Abnormal [facility] Creatinine [Mass/volume] in Serum or PlasmaOrdered By: Christian Carlos on 02-10-2025 Creatinine [Mass/Vol] 0.86 mg/dL Normal 0.70-1.30 [facility] Comment on above: Performed By: #### S CAN CBC, LDH, CMP #### [address] Dacrocytes [Presence] in Blo od by Light microscopyOrdered By: Christian Carlos on 02-10-2025 Dacrocytes LM Ql (Bld) Slight [facility] Diff and CBCon 02-10-2025 Mean Corpuscular HGB Conc 35.2 g/dL Normal 32.5-35.6 [facility] Comment on above: Performed By: #### S CAN CBC, LDH, CMP #### [address] Ovalocytes Slight Normal [facility] Comment on above: Performed By: #### S CAN CBC, LDH, CMP #### [address] Platelet Estimate Normal Normal Normal [facility] Comment on above: Performed By: #### S CAN CBC, LDH, CMP #### [facility] [address] [place] [address] Platelet Morphology Normal Normal Normal [facility] Comment on above: Result Comment: PERF ORMED BY: [place] [address] PATHOLOGIST VETERINARY ATTENDANT DANIELLE QUINONES M.D. Performed By: #### S CAN CBC, LDH, CMP #### [address] Poikilocytosis Slight Normal [facility] Comment on above: Performed By: #### S CAN CBC, LDH, CMP #### [address] Polychromasia Slight Normal [facility] Comment on above: Performed By: #### S CAN CBC, LDH, CMP #### [address] Tear Drop Cells Slight Normal [facility] Comment on above: Performed By: #### S CAN CBC, LDH, CMP #### [address] White Blood Count 20.7 [CFU]/mL High 4.1-10.5 [facility] Comment on above: Performed By: #### S CAN CBC, LDH, CMP #### [address] Eosinophils Auto (Bld) [#/Vo l]Ordered By: Christian Carlos on 02-10-2025 Eosinophils (Bld) [#/Vol] N/A [facility] Eosinophils/100 WBC Auto (Bl d)Ordered By: Christian Carlos on 02-10-2025 Eosinophils/100 WBC (Bld) N/A [facility] Eosinophils/100 leukocytes i n Blood by Manual countOrdered By: Christian Carlos on 02-10-2025 Eosinophils/100 WBC (Bld) 1 % Normal 1-3 [facility] Comment on above: Performed By: #### S CAN CBC, LDH, CMP #### [address] Erythrocyte distribution wid th [Ratio] by Automated countOrdered By: Christian Carlos on 02-10-2025 Erythrocyte distribution width (RBC) [Ratio] 13.4 % Normal 12.0-14.8 [facility] Comment on above: Performed By: #### S CAN CBC, LDH, CMP #### [address] Erythrocyte morphology findi ng [Identifier] in BloodOrdered By: Christian Carlos on 02-10-2025 RBC morphology finding Nom (Bld) N/A [facility] Erythrocytes [#/volume] in B lood by Automated countOrdered By: Christian Carlos on 02-10-2025 RBC (Bld) [#/Vol] 3.98 10*6/uL Normal 3.90-5.60 [facility] Comment on above: Performed By: #### S CAN CBC, LDH, CMP #### [address] Free K+L LT Chains, Qn, Son 02-10-2025 Free Wilderness Rim Light Chains, S 16.3 mg/L Normal 3.3-19.4 [facility] Comment on above: Performed By: #### S PE, KAPPA, JIGAR SERUM ####[facility] , Free Lambda Light Chains, S 10.6 mg/L Normal 5.7-26.3 [facility] Comment on above: Performed By: #### S PE, KAPPA, JIGAR SERUM ####[facility] , Wilderness Rim/Lambda Ratio, S 1.54 Normal 0.26-1.65 [facility] Comment on above: Result Comment: Perf ormed at: CB - [facility] [address] [id number] Chief Engineer'S Helper: Chad Mccall PhD, Phone: [phone] PERFORMED BY: [place] [address] PATHOLOGIST VETERINARY ATTENDANT DANIELLE QUINONES M.D. Performed By: #### S PE, KAPPA, JIGAR SERUM ####[facility] , Glucose [Mass/volume] in Ser um or Plasmaon 02-10-2025 Glucose [Mass/Vol] 106 mg/dL High 70-100 [facility] Comment on above: Random Glucose Refer ence [...] the diagnosis of Diabetes Mellitus. Result Comment: [place] Glucose Reference Range is dependent on time and content of last meal. Glucose of more than 200 mg/dL in a nonstressed, ambulatory subject supports the diagnosis of Diabetes Mellitus. ADA recommended reference range Performed By: #### S CAN CBC, LDH, CMP #### [facility] [address] Hematocrit [Volume Fraction] of Blood by Automated countOrdered By: Christian Carlos on 02-10-2025 Hematocrit (Bld) [Volume fraction] 38.6 % Low 38.8-50.0 [facility] Comment on above: Performed By: #### S CAN CBC, LDH, CMP #### [facility] [address] Hemoglobin [Mass/volume] in BloodOrdered By: Christian Carlos on 02-10-2025 Hemoglobin (Bld) [Mass/Vol] 13.6 g/dL Normal 13.0-17.0 [facility] Comment on above: Performed By: #### S CAN CBC, LDH, CMP #### [facility] [address] INR in Platelet poor plasma by Coagulation assayOrdered By: Christian Carlos on 02-10-2025 INR Coag (PPP) [Relative time] 1.0 {INR} Normal [facility] Comment on above: INR Therapeutic Rang [...] - 4.5 Performed By: #### P P ####[facility] [id number] Immunofixation,Serumon 02-10 Immunofixation, Serum Comment Normal . [facility] Comment on above: Result Comment: No m onoclonality detected. Performed By: #### S PE, KAPPA, JIGAR SERUM ####[facility] , Immunoglobulin A, Serum 146 mg/dL Normal 61-437 [facility] Comment on above: Performed By: #### S PE, KAPPA, JIGAR SERUM ####[facility] , Immunoglobulin G 714 mg/dL Normal 603-1613 [facility] Comment on above: Performed By: #### S PE, KAPPA, JIGAR SERUM ####[facility] , Immunoglobulin M, Serum 24 mg/dL Normal 20-172 [facility] Comment on above: Result Comment: Resu lt confirmed on concentration. Performed at: - [facility] [id number] Chief Engineer'S Helper: Chad Mccall PhD, Phone: [phone] Performed By: #### S PE, KAPPA, JIGAR SERUM ####[facility] , Leukocytes [#/volume] correc christophe for nucleated erythrocytes in Blood by Automated counOrdered By: Christian Carlos on 02-10-2025 WBC corrected for nucl RBC Auto (Bld) [#/Vol] 20.7 10*3/uL High 4.1-10.5 [facility] Leukocytes [#/volume] in Blo od by Automated countOrdered By: Christian Carlos on 02-10-2025 WBC (Bld) [#/Vol] 20.7 10*3/uL High 4.1-10.5 [facility] Comment on above: Performed By: #### S CAN CBC, LDH, CMP #### [facility] [address] [place] [id number] [facility] Lymphocytes Auto (Bld) [#/Vo l]Ordered By: Christian Carlos on 02-10-2025 Lymphocytes (Bld) [#/Vol] N/A [facility] Lymphocytes/100 WBC Auto (Bl d)Ordered By: Christian Carlos on 02-10-2025 Lymphocytes/100 WBC (Bld) N/A [facility] Lymphocytes/100 leukocytes i n Blood by Manual countOrdered By: Christian Carlos on 02-10-2025 Lymphocytes/100 WBC (Bld) 69 % High 18-42 [facility] Comment on above: Performed By: #### S CAN CBC, LDH, CMP #### [facility] [address] [place] [address] MCH [Entitic mass] by Automa christophe countOrdered By: Christian Carlos on 02-10-2025 MCH (RBC) [Entitic mass] 34.2 pg Normal 27.5-35.2 [facility] Comment on above: Performed By: #### S CAN CBC, LDH, CMP #### [facility] [address] [place] [address] MCHC Auto (RBC) [Mass/Vol]Or dered By: Christian Carlos on 02-10-2025 MCHC (RBC) [Mass/Vol] 35.2 g/dL 32.5-35.6 [facility] MCV [Entitic volume] by Auto mated countOrdered By: Christian Carlos on 02-10-2025 MCV (RBC) [Entitic vol] 97.2 fL Normal 83.5-101 [facility] Comment on above: Performed By: #### S CAN CBC, LDH, CMP #### [facility] [address] [place] [address] Monocytes Auto (Bld) [#/Vol] Ordered By: Christian Carlos on 02-10-2025 Monocytes (Bld) [#/Vol] N/A [facility] Monocytes/100 WBC Auto (Bld) Ordered By: Christian Carlos on 02-10-2025 Monocytes/100 WBC (Bld) N/A [facility] Monocytes/100 leukocytes in Blood by Manual countOrdered By: Christian Carlos on 02-10-2025 Monocytes/100 WBC (Bld) 5 % Normal 2-11 [facility] Comment on above: Performed By: #### S CAN CBC, LDH, CMP #### [facility] [address] [place] [id number] [place] Neutrophils Auto (Bld) [#/Vo l]Ordered By: Christian Carlos on 02-10-2025 Neutrophils (Bld) [#/Vol] N/A [facility] Neutrophils/100 WBC Auto (Bl d)Ordered By: Christian Carlos on 02-10-2025 Neutrophils/100 WBC (Bld) N/A [facility] No Panel InformationOrdered By: Christian Carlos on 02-10-2025 Miscellaneous Pathology Test See comment [facility] Comment on above: See report. Scanned copy available in EMR. Estimated GFR (CKD-EPI) > 60.0 mL/Min [facility] Creatinine Clearance (Chem 93.99 [facility] Protein Electrophoresis M-Danny Not observed g/dL Not Observed [facility] Protein Electrophoresis Note Comment . [facility] Comment on above: Protein electrophore sis scan will follow via computer,mail, or inventory control associate delivery. No Panel Informationon 02-10 [facility] Nucleated erythrocytes [Pres ence] in Blood by Automated countOrdered By: Christian Carlos on 02-10-2025 Nucleated RBC Auto Ql (Bld) N/A [facility] Ovalocytes [Presence] in Blo od by Light microscopyOrdered By: Christian Carlos on 02-10-2025 Ovalocytes LM Ql (Bld) [facility] for [facility] Co rpon 02-10-2025 Pathology Request for Lab Reina Normal [facility] Comment on above: Result Comment: See report. Scanned copy available in EMR. PERFORMED BY: [facility] [address] [place] [address] PATHOLOGIST VETERINARY ATTENDANT DANIELLE QUINONES M.D. Performed By: #### S CAN CBC, LDH, CMP #### [facility] [address] Platelet adequacy [Presence] in Blood by Light microscopyOrdered By: Christian Carlos on 02-10-2025 Platelets LM Ql (Bld) Normal Normal [facility] Platelet mean volume [Entiti c volume] in Blood by Automated countOrdered By: Christian Carlos on 02-10-2025 Platelet mean volume (Bld) [Entitic vol] 7.4 fL Normal 6.6-10.1 [facility] Comment on above: Result Comment: PERF ORMED BY: [place] [address] PATHOLOGIST VETERINARY ATTENDANT DANIELLE QUINONES M.D. Performed By: #### S CAN CBC, LDH, CMP #### [address] Platelet morphology finding [Identifier] in BloodOrdered By: Christian Carlos on 02-10-2025 Platelet morphology finding Nom (Bld) Normal Normal [facility] Platelets [#/volume] in Bloo d by Automated countOrdered By: Christian Carlos on 02-10-2025 Platelets (Bld) [#/Vol] 158 10*3/uL Normal 150-450 [facility] Comment on above: Performed By: #### S CAN CBC, LDH, CMP #### [address] Poikilocytosis [Presence] in Blood by Light microscopyOrdered By: Christian Carlos on 02-10-2025 Poikilocytosis LM Ql (Bld) [facility] Polychromasia [Presence] in Blood by Light microscopyOrdered By: Christian Carlos on 02-10-2025 Polychromasia LM Ql (Bld) [facility] Potassium [Moles/volume] in Serum or Plasmaon 02-10-2025 Potassium [Moles/Vol] 3.8 mmol/L Normal 3.5-5.1 [facility] Comment on above: Performed By: #### S CAN CBC, LDH, CMP #### [facility] [address] [place] [address] Protein Electrophoresis, Ser umon 02-10-2025 Ejunj-3-Opetelxy 0.3 g/dL Normal 0.0-0.4 [facility] Comment on above: Performed By: #### S PE, KAPPA, JIGAR SERUM ####[facility] , Wutdp-4-Jelvdnab 0.5 g/dL Normal 0.4-1.0 [facility] Comment on above: Performed By: #### S PE, KAPPA, JIGAR SERUM ####[facility] , Beta Globulin 0.9 g/dL Normal 0.7-1.3 [facility] Comment on above: Performed By: #### S PE, KAPPA, JIGAR SERUM ####[facility] , Gamma Globulin 0.7 g/dL Normal 0.4-1.8 [facility] Comment on above: Performed By: #### S PE, KAPPA, JIGAR SERUM ####[facility] , M-Danny Not Observed Normal Not Observed [facility] Comment on above: Performed By: #### S PE, KAPPA, JIGAR SERUM ####[facility] , SPE-Note Comment Normal . [facility] Comment on above: Result Comment: Prot ein electrophoresis scan will follow via computer, mail, or inventory control associate delivery. Performed By: #### S PE, KAPPA, JIGAR SERUM ####[facility] , Protein [Mass/volume] in Ser um or Plasmaon 02-10-2025 Protein [Mass/Vol] 6.7 g/dL Normal 6.4-8.9 [facility] Comment on above: Performed By: #### S CAN CBC, LDH, CMP #### [facility] [address] Prothrombin time (PT)Ordered By: Christian Carlos on 02-10-2025 PT Coag (PPP) [Time] 11.1 s Normal 9.0-12.9 [facility] Comment on above: A hematocrit value g reater than 55% may lead to inaccurate results in coagulation testing. Patients having hematocrit values >55% require a special collection tube for coagulation studies. Please contact the laboratory at [phone] for redraw instructions. Order Comment: STAT FOR CT Result Comment: A he matocrit value greater than 55% may lead to inaccurate results in coagulation testing. Patients having hematocrit values >55% require a special collection tube for coagulation studies. Please contact the laboratory at [phone] for redraw instructions. Performed By: #### P P ####[facility] Segmented neutrophils/100 le ukocytes in Blood by Manual countOrdered By: Christian Carlos on 02-10-2025 Segmented neutrophils/100 WBC (Bld) 25 % Low 50-70 [facility] Comment on above: Performed By: #### S CAN CBC, LDH, CMP #### [facility] [address] Serum free kappa light chain measurementOrdered By: Christian Carlos on 02-10-2025 Immunoglobulin light chains.kappa.free (S) [Mass/Vol] 16.3 mg/L 3.3-19.4 [facility] Serum globulin measurement ( mass/volume)Ordered By: Christian Carlos on 02-10-2025 Globulin (S) [Mass/Vol] 2.3 g/dL Normal 2.2-3.9 [facility] Comment on above: Performed By: #### S PE, KAPPA, JIGAR SERUM ####[facility] , Serum globulin measurement b y calculation (mass/volume)Ordered By: Christian Carlos on 02-10-2025 Globulin (S) [Mass/Vol] 2.0 g/dL Normal [facility] Comment on above: Performed By: #### S CAN CBC, LDH, CMP #### [facility] [address] Serum immunoglobulin free ka ppa light chains/immunoglobulin free lambda light chainsOrdered By: Christian Carlos on 02-10-2025 Immunoglobulin light chains.kappa.free/Immu noglobulin light chains.lambda.free (S) [Mass ratio] 1.54 0.26-1.65 [facility] Comment on above: Performed at: [facility] [address] [id number] Director: Chad Mccall PhD, Phone: [phone] Serum or plasma IgA measurem ent (mass/volume)Ordered By: Christian Carlos on 02-10-2025 IgA [Mass/Vol] 146 mg/dL 61-437 [facility] Serum or plasma IgG measurem ent (mass/volume)Ordered By: Christian Carlos on 02-10-2025 IgG [Mass/Vol] 714 mg/dL 603-1613 [facility] Serum or plasma IgM measurem ent (mass/volume)Ordered By: Christian Carlos on 02-10-2025 IgM [Mass/Vol] 24 mg/dL 20-172 [facility] Comment on above: Result confirmed on concentration.Performed at: [facility] [address] [id number] Director: Chad Mccall PhD, Phone: [phone] Serum or plasma albumin kirk urement (mass/volume)Ordered By: Christian Carlos on 02-10-2025 Albumin [Mass/Vol] 4.0 g/dL Normal 2.9-4.4 [facility] Comment on above: Performed By: #### S PE, KAPPA, JIGAR SERUM ####[facility] , Serum or plasma albumin/glob ulin mass ratioon 02-10-2025 Albumin/Globulin [Mass ratio] 2.4 {ratio} Normal [facility] Comment on above: Performed By: #### S CAN CBC, LDH, CMP #### [address] Serum or plasma albumin/glob ulin mass ratioOrdered By: Christian Carlos on 02-10-2025 Albumin/Globulin [Mass ratio] 1.7 {ratio} Normal 0.7-1.7 [facility] Comment on above: Performed By: #### S PE, KAPPA, JIGAR SERUM ####[facility] , Serum or plasma alpha 1 glob ulin measurement by electrophoresis (mass/volume)Ordered By: Christian Carlos on 02-10-2025 Alpha 1 globulin Elph [Mass/Vol] 0.3 g/dL 0.0-0.4 [facility] Serum or plasma alpha 2 glob ulin measurement by electrophoresis (mass/volume)Ordered By: Christian Carlos on 02-10-2025 Alpha 2 globulin Elph [Mass/Vol] 0.5 g/dL 0.4-1.0 [facility] Serum or plasma anion gap de terminationon 02-10-2025 Anion gap [Moles/Vol] 9.2 mmol/L Normal 6.0-15.0 [facility] Comment on above: Performed By: #### S CAN CBC, LDH, CMP #### [address] Serum or plasma beta globuli n measurement by electrophoresis (mass/volume)Ordered By: Christian Carlos on 02-10-2025 Beta globulin Elph [Mass/Vol] 0.9 g/dL 0.7-1.3 [facility] Serum or plasma gamma globul in measurement by electrophoresis (mass/volume)Ordered By: Christian Carlos on 02-10-2025 Gamma globulin Elph [Mass/Vol] 0.7 g/dL 0.4-1.8 [facility] Serum or plasma immunoglobul in free lambda light chains measurement (mass/volume)Ordered By: Christian Carlos on 02-10-2025 Immunoglobulin light chains.lambda.free [Mass/Vol] 10.6 mg/L 5.7-26.3 [facility] Serum total protein measurem entOrdered By: Christian Carlos on 02-10-2025 Protein [Mass/Vol] 6.3 g/dL Normal 6.0-8.5 [facility] Comment on above: Performed By: #### S PE, KAPPA, JIGAR SERUM ####[facility] , Sodium [Moles/volume] in Ser um or Plasmaon 02-10-2025 Sodium [Moles/Vol] 140 mmol/L Normal 136-145 [facility] Comment on above: Performed By: #### S CAN CBC, LDH, CMP #### [facility] [address] Urea nitrogen [Mass/volume] in Serum or Plasmaon 02-10-2025 Urea nitrogen [Mass/Vol] 22 mg/dL Normal 7-25 [facility] Comment on above: Performed By: #### S CAN CBC, LDH, CMP #### [facility] [address] aPTT in Platelet poor plasma by Coagulation assayOrdered By: Christian Carlos on 02-10-2025 aPTT Coag (PPP) [Time] 30.1 s 25.1-36.5 [facility] Comment on above: A hematocrit value g reater than 55% may lead to inaccurate results in coagulation testing. Patients having hematocrit values >55% require a special collection tube for coagulation studies. Please contact the laboratory at [phone] for redraw instructions. FLOWCYTOMETRY NEOGENOMICon 0 01-18-2025 FLOWCYTOMETRY NEOGENOMIC [facility] Comment on above: See report. Scanned copy available in EMR. [facility] Alanine aminotransferase [En zymatic activity/volume] in Serum or PlasmaOrdered By: Christian Carlos on 01-13-2025 ALT [Catalytic activity/Vol] 30 U/L Normal 7-52 [facility] Comment on above: Performed By: #### S CAN CBC, LDH, CMP #### [facility] [address] [place] [address] [place] Albumin [Mass/volume] in Ser um or Plasma by Bromocresol green (BCG) dye binding methoOrdered By: Christian Carlos on 01-13-2025 Albumin BCG dye [Mass/Vol] 4.4 g/dL 3.5-5.7 [facility] Alkaline phosphatase [Enzyma tic activity/volume] in Serum or PlasmaOrdered By: Christian Carlos on 01-13-2025 ALP [Catalytic activity/Vol] 86 U/L Normal 34-104 [facility] Comment on above: Performed By: #### S CAN CBC, LDH, CMP #### [facility] [address] [place] [address] [place] Aspartate aminotransferase [ Enzymatic activity/volume] in Serum or PlasmaOrdered By: Christian Carlos on 01-13-2025 AST [Catalytic activity/Vol] 33 U/L Normal 13-39 [facility] Comment on above: Performed By: #### S CAN CBC, LDH, CMP #### [facility] [address] [place] [address] [place] Band form neutrophils/100 le ukocytes in Blood by Manual countOrdered By: Christian Carlos on 01-13-2025 Band form neutrophils/100 WBC (Bld) 2 % Normal 0-5 [facility] Comment on above: Performed By: #### S CAN CBC, LDH, CMP #### [facility] [address] Basophils Auto (Bld) [#/Vol] Ordered By: Christian Carlso on 01-13-2025 Basophils (Bld) [#/Vol] N/A [facility] Basophils/100 WBC Auto (Bld) Ordered By: Christian Carlos on 01-13-2025 Basophils/100 WBC (Bld) N/A [facility] Bilirubin.total [Mass/volume ] in Serum or PlasmaOrdered By: Christian Carlos on 01-13-2025 Bilirubin [Mass/Vol] 1.7 mg/dL High 0.3-1.0 [facility] Comment on above: Samples from patient [...] CAN CBC, LDH, CMP #### [facility] [address] [place] [address] [place] Calcium [Mass/volume] in Ser um or PlasmaOrdered By: Christian Carlos on 01-13-2025 Calcium [Mass/Vol] 9.0 mg/dL Normal 8.6-10.3 [facility] Comment on above: Performed By: #### S CAN CBC, LDH, CMP #### [facility] [address] Carbon dioxide, total [Moles /volume] in Serum or PlasmaOrdered By: Christian Carlos on 01-13-2025 CO2 [Moles/Vol] 33.8 mmol/L High 21.0-31.[address] [facility] Comment on above: Performed By: #### S CAN CBC, LDH, CMP #### [facility] [address] [place] [address] Chloride [Moles/volume] in S hesham or PlasmaOrdered By: Christian Carlos on 01-13-2025 Chloride [Moles/Vol] 104 mmol/L Normal 98-107 [facility] Comment on above: Performed By: #### S CAN CBC, LDH, CMP #### [facility] [address] Comprehensive Metabolic Pane aline 01-13-2025 Albumin [Mass/Vol] 4.4 g/dL Normal 3.5-5.7 [facility] Comment on above: Performed By: #### S CAN CBC, LDH, CMP #### [address] Creatinine Clr Calc Pharmacy 85.09 Normal [facility] Comment on above: Performed By: #### S CAN CBC, LDH, CMP #### [place] [address] [place] GFR/1.73 sq M.predicted MDRD (S/P/Bld) [Vol rate/Area] mL/min/{1.73_m2} Normal [facility] Comment on above: Performed By: #### S CAN CBC, LDH, CMP #### [facility] [address] [place] [address] Comprehensive metabolic pane aline 01-13-2025 Albumin [Mass/Vol] 4.4 g/dL 3.5 - 5.7 g/dL [facility] Albumin/Globulin [Mass ratio] 2.6 {ratio} [facility] ALP [Catalytic activity/Vol] 86 U/L 34 - 104 U/L [facility] ALT [Catalytic activity/Vol] 30 U/L 7 - 52 U/L [facility] Anion gap [Moles/Vol] 7.3 mmol/L 6.0 - 15.0 meq/L [facility] AST [Catalytic activity/Vol] 33 U/L 13 - 39 U/L [facility] Bilirubin [Mass/Vol] 1.7 mg/dL High 0.3 - 1 .0 mg/dL [facility] Comment on above: Samples from patient s who have taken Naproxen have shown spurious elevation in Total Bilirubin levels. A metabolite of Naproxen, O-desmethylnaproxen, has been shown to interfere with the Sathish-Federica method for measuring Total Bilirubin. Calcium [Mass/Vol] 9 mg/dL 8.6 - 10. 3 mg/dL [facility] Chloride [Moles/Vol] 104 mmol/L 98 - 10 7 mmol/L [facility] CO2 [Moles/Vol] 33.8 mmol/L High 21.0 - 31.0 mmol/L [facility] Creatinine (U) [Mass/Vol] 0.95 mg/dL 0.70 - 1.30 mg/dL [facility] CREATININE CLR CALC PHARMACY 85.09 [facility] ESTIMATED GFR mL/Min [facility] Globulin (S) [Mass/Vol] 1.7 g/dL [facility] Glucose [Mass/Vol] 95 mg/dL 70 - 100 mg/dL [facility] Comment on above: Random Glucose Refer ence Range is dependent on time and content of last meal. Glucose of more than 200 mg/dL in a nonstressed, ambulatory subject supports the diagnosis of Diabetes Mellitus. ADA recommended reference range Potassium [Moles/Vol] 4.1 mmol/L 3.5 - 5.1 mmol/L [facility] Protein [Mass/Vol] 6.1 g/dL Low 6.4 - 8.9 g/dL [facility] Sodium [Moles/Vol] 141 mmol/L 136 - 145 mmol/L [facility] Urea nitrogen [Mass/Vol] 14 mg/dL 7 - 25 mg/dL [facility] Creatinine [Mass/volume] in Serum or PlasmaOrdered By: Christian Carlos on 01-13-2025 Creatinine [Mass/Vol] 0.95 mg/dL Normal 0.70-1.30 [facility] Comment on above: Performed By: #### S CAN CBC, LDH, CMP #### [facility] [address] Diff and CBCon 01-13-2025 Giant Platelet Tally 1 /100{WBC} Normal [facility] Comment on above: Performed By: #### S CAN CBC, LDH, CMP #### [address] Mean Corpuscular HGB Conc 35.6 g/dL Normal 32.5-35.6 [facility] Comment on above: Performed By: #### S CAN CBC, LDH, CMP #### [address] Platelet Estimate Decreased Normal Normal [facility] Comment on above: Performed By: #### S CAN CBC, LDH, CMP #### [address] Platelet Morphology Normal Normal Normal [facility] Comment on above: Result Comment: PERF ORMED BY: [place] [address] PATHOLOGIST VETERINARY ATTENDANT SUSAN FREGOSO M.D. Performed By: #### S CAN CBC, LDH, CMP #### [address] Reactive Lymphocytes 2 % Normal 0-12 [facility] Comment on above: Performed By: #### S CAN CBC, LDH, CMP #### [address] Eosinophils Auto (Bld) [#/Vo l]Ordered By: Christian Carlos on 01-13-2025 Eosinophils (Bld) [#/Vol] N/A [facility] Eosinophils/100 WBC Auto (Bl d)Ordered By: Christian Carlos on 01-13-2025 Eosinophils/100 WBC (Bld) N/A [facility] Eosinophils/100 leukocytes i n Blood by Manual countOrdered By: Christian Carlos on 01-13-2025 Eosinophils/100 WBC (Bld) 4 % High 1-3 [facility] Comment on above: Performed By: #### S CAN CBC, LDH, CMP #### [address] Erythrocyte distribution wid th [Ratio] by Automated countOrdered By: Christian Carlos on 01-13-2025 Erythrocyte distribution width (RBC) [Ratio] 14.0 % Normal 12.0-14.8 [facility] Comment on above: Performed By: #### S CAN CBC, LDH, CMP #### [facility] [address] Erythrocyte morphology findi ng [Identifier] in BloodOrdered By: Christian Carlos on 01-13-2025 RBC morphology finding Nom (Bld) Normal Normal Normal [facility] Comment on above: Performed By: #### S CAN CBC, LDH, CMP #### [facility] [address] Erythrocytes [#/volume] in B lood by Automated countOrdered By: Christian Carlos on 01-13-2025 RBC (Bld) [#/Vol] 4.15 10*6/uL Normal 3.90-5.60 [facility] Comment on above: Performed By: #### S CAN CBC, LDH, CMP #### [facility] [address] Flowcytometry Neogenomicon 0 01-13-2025 Flowcytometry Neogenomic Normal [facility] Comment on above: Result Comment: See report. Scanned copy available in EMR. PERFORMED BY: [place] [address] PATHOLOGIST VETERINARY ATTENDANT DANIELLE QUINONES M.D. Performed By: #### F LOW NEOGENOMIC ####[facility] [id number] Giant platelets/100 leukocyt es [Ratio] in Blood by Manual countOrdered By: Christian Carlos on 01-13-2025 Giant platelets/100 WBC Manual cnt (Bld) [Ratio] 1 /100{WBC} [facility] Glucose [Mass/volume] in Ser um or PlasmaOrdered By: Christian Carlos on 01-13-2025 Glucose [Mass/Vol] 95 mg/dL Normal 70-100 [facility] Comment on above: ADA recommended refe rence rangeRandom Glucose Reference Range is dependent on time and content of last meal. Glucose of more than 200 mg/dL in a nonstressed, ambulatory subject supports the diagnosis of Diabetes Mellitus. Result Comment: [place] Glucose Reference Range is dependent on time and content of last meal. Glucose of more than 200 mg/dL in a nonstressed, ambulatory subject supports the diagnosis of Diabetes Mellitus. ADA recommended reference range Performed By: #### S CAN CBC, LDH, CMP #### [facility] [address] Hematocrit [Volume Fraction] of Blood by Automated countOrdered By: Christian Carlos on 01-13-2025 Hematocrit (Bld) [Volume fraction] 38.7 % Low 38.8-50.0 [facility] Comment on above: Performed By: #### S CAN CBC, LDH, CMP #### [address] Hemoglobin [Mass/volume] in BloodOrdered By: Christian Carlos on 01-13-2025 Hemoglobin (Bld) [Mass/Vol] 13.8 g/dL Normal 13.0-17.0 [facility] Comment on above: Performed By: #### S CAN CBC, LDH, CMP #### [address] LDH Lactate Dehydrogenaseon 01-13-2025 LDH Lactate Dehydrogenase 310 U/L High 140-271 [facility] Comment on above: Result Comment: PERF ORMED BY: [place] [address] PATHOLOGIST VETERINARY ATTENDANT SUSAN FREGOSO M.D. Performed By: #### S CAN CBC, LDH, CMP #### [address] LDH Lactate to pyruvate reac tion [Catalytic activity/Vol]on 01-13-2025 LDH LACTATE DEHYDROGENASE 310 U/L High 140 - 271 U/L [facility] Lactate dehydrogenase [Enzym atic activity/volume] in Serum or Plasma by Lactate to pyOrdered By: Christian Carlos on 01-13-2025 LDH Lactate to pyruvate reaction [Catalytic activity/Vol] 310 U/L High 140-271 [facility] Leukocytes [#/volume] correc christophe for nucleated erythrocytes in Blood by Automated counOrdered By: Christian Carlos on 01-13-2025 WBC corrected for nucl RBC Auto (Bld) [#/Vol] 16.9 10*3/uL High 4.1-10.5 [facility] Leukocytes [#/volume] in Blo od by Automated countOrdered By: Christian Carlos on 01-13-2025 WBC (Bld) [#/Vol] 16.9 10*3/uL High 4.1-10.5 [facility] Comment on above: Performed By: #### S CAN CBC, LDH, CMP #### [facility] [address] Lymphocytes Auto (Bld) [#/Vo l]Ordered By: Christian Carlos on 01-13-2025 Lymphocytes (Bld) [#/Vol] N/A [facility] Lymphocytes/100 WBC Auto (Bl d)Ordered By: Christian Carlos on 01-13-2025 Lymphocytes/100 WBC (Bld) N/A [facility] Lymphocytes/100 leukocytes i n Blood by Manual countOrdered By: Christian Carlos on 01-13-2025 Lymphocytes/100 WBC (Bld) 48 % High 18-42 [facility] Comment on above: Performed By: #### S CAN CBC, LDH, CMP #### [facility] [address] [place] [address] MCH [Entitic mass] by Automa christophe countOrdered By: Christian Carlos on 01-13-2025 MCH (RBC) [Entitic mass] 33.1 pg Normal 27.5-35.2 [facility] Comment on above: Performed By: #### S CAN CBC, LDH, CMP #### [facility] [address] [place] [address] MCHC Auto (RBC) [Mass/Vol]Or dered By: Christian Carlos on 01-13-2025 MCHC (RBC) [Mass/Vol] 35.6 g/dL 32.5-35.6 [facility] MCV [Entitic volume] by Auto mated countOrdered By: Christian Carlos on 01-13-2025 MCV (RBC) [Entitic vol] 93.1 fL Normal 83.5-101 [facility] Comment on above: Performed By: #### S CAN CBC, LDH, CMP #### [facility] [address] Monocytes Auto (Bld) [#/Vol] Ordered By: Christian Carlos on 01-13-2025 Monocytes (Bld) [#/Vol] N/A [facility] Monocytes/100 WBC Auto (Bld) Ordered By: Christian Carlos on 01-13-2025 Monocytes/100 WBC (Bld) N/A [facility] Monocytes/100 leukocytes in Blood by Manual countOrdered By: Christian Carlos on 01-13-2025 Monocytes/100 WBC (Bld) 6 % Normal 2-11 [facility] Comment on above: Performed By: #### S CAN CBC, LDH, CMP #### [facility] [address] [place] [id number] [facility] Neutrophils Auto (Bld) [#/Vo l]Ordered By: Christian Carlos on 01-13-2025 Neutrophils (Bld) [#/Vol] N/A [facility] Neutrophils/100 WBC Auto (Bl d)Ordered By: Christian Carlos on 01-13-2025 Neutrophils/100 WBC (Bld) N/A [facility] No Panel Informationon 01-13 Interpretation and review of laboratory results Abnormal [facility] No Panel InformationOrdered By: Christian Carlos on 01-13-2025 Estimated GFR (CKD-EPI) > 60.0 mL/Min [facility] Creatinine Clearance (Chem 85.09 [facility] Nucleated erythrocytes [Pres ence] in Blood by Automated countOrdered By: Christian Carlos on 01-13-2025 Nucleated RBC Auto Ql (Bld) N/A [facility] Platelet adequacy [Presence] in Blood by Light microscopyOrdered By: Christian Carlos on 01-13-2025 Platelets LM Ql (Bld) Decreased Normal [facility] Platelet mean volume [Entiti c volume] in Blood by Automated countOrdered By: Christian Carlos on 01-13-2025 Platelet mean volume (Bld) [Entitic vol] 7.3 fL Normal 6.6-10.1 [facility] Comment on above: Performed By: #### S CAN CBC, LDH, CMP #### [facility] [address] Platelet morphology finding [Identifier] in BloodOrdered By: Christian Carlos on 01-13-2025 Platelet morphology finding Nom (Bld) Normal Normal [facility] Platelets [#/volume] in Bloo d by Automated countOrdered By: Christian Carlos on 01-13-2025 Platelets (Bld) [#/Vol] 136 10*3/uL Low 150-450 [facility] Comment on above: Performed By: #### S CAN CBC, LDH, CMP #### [address] Potassium [Moles/volume] in Serum or PlasmaOrdered By: Christian Carlos on 01-13-2025 Potassium [Moles/Vol] 4.1 mmol/L Normal 3.5-5.1 [facility] Comment on above: Performed By: #### S CAN CBC, LDH, CMP #### [facility] [address] [place] [address] Protein [Mass/volume] in Ser um or PlasmaOrdered By: Christian Carlos on 01-13-2025 Protein [Mass/Vol] 6.1 g/dL Low 6.4-8.9 [facility] Comment on above: Performed By: #### S CAN CBC, LDH, CMP #### [facility] [address] [place] [address] [place] Segmented neutrophils/100 le ukocytes in Blood by Manual countOrdered By: Christian Carlos on 01-13-2025 Segmented neutrophils/100 WBC (Bld) 39 % Low 50[facility] Comment on above: Performed By: #### S CAN CBC, LDH, CMP #### [facility] [address] [place] [address] Serum globulin measurement b y calculation (mass/volume)Ordered By: Christian Carlos on 01-13-2025 Globulin (S) [Mass/Vol] 1.7 g/dL [facility] Comment on above: Performed By: #### S CAN CBC, LDH, CMP #### [facility] [address] [place] [address] Serum or plasma albumin/glob ulin mass ratioOrdered By: Christian Carlos on 01-13-2025 Albumin/Globulin [Mass ratio] 2.6 {ratio} [facility] Comment on above: Performed By: #### S CAN CBC, LDH, CMP #### [facility] [address] [place] [address] Serum or plasma anion gap de terminationOrdered By: Christian Carlos on 01-13-2025 Anion gap [Moles/Vol] 7.3 mmol/L Normal 6.0-15.0 [facility] Comment on above: Performed By: #### S CAN CBC, LDH, CMP #### [facility] [address] [place] [address] Sodium [Moles/volume] in Ser um or PlasmaOrdered By: Christian Carlos on 01-13-2025 Sodium [Moles/Vol] 141 mmol/L Normal 136-145 [facility] Comment on above: Performed By: #### S CAN CBC, LDH, CMP #### [facility] [address] [place] [address] Urea nitrogen [Mass/volume] in Serum or PlasmaOrdered By: Christian Carlos on 01-13-2025 Urea nitrogen [Mass/Vol] 14 mg/dL Normal 7-25 [facility] Comment on above: Performed By: #### S CAN CBC, LDH, CMP #### [facility] [address] [place] [address] Variant lymphocytes/100 WBC Manual cnt (Bld)Ordered By: Christian Carlos on 01-13-2025 Variant lymphocytes/100 WBC (Bld) 2 % 0-12 [facility] A1C with Estimated Average G luon 11-30-2024 Glucose [Mass/Vol] 94 mg/dL Normal [facility] Comment on above: Result Comment: PERF ORMED BY: [place] [address] PATHOLOGIST VETERINARY ATTENDANT SUSAN FREGOSO M.D. Performed By: #### S CAN CBC, LDH, CMP #### [facility] [address] Alanine aminotransferase [En zymatic activity/volume] in Serum or PlasmaOrdered By: Russell Gómez on 11-30-2024 ALT [Catalytic activity/Vol] Alanine aminotransferase [Enzymatic activity/volume] in Serum or Plasma 7 [facility] ALT [Catalytic activity/Vol] 28 U/L Normal [facility] Comment on above: Performed By: #### S CAN CBC, LDH, CMP #### [facility] [address] [place] [address] [place] Albumin [Mass/volume] in Ser um or Plasma by Bromocresol green (BCG) dye binding methoOrdered By: Russell Gómez on 11-30-2024 Albumin BCG dye [Mass/Vol] Albumin [Mass/volume] in Serum or Plasma by Bromocresol green (BCG) dye binding metho 3.5-5.7 [facility] Albumin BCG dye [Mass/Vol] 4.3 g/dL 3.5-5.7 [facility] Alkaline phosphatase [Enzyma tic activity/volume] in Serum or PlasmaOrdered By: Russell Gómez on 11-30-2024 ALP [Catalytic activity/Vol] Alkaline phosphatase [Enzymatic activity/volume] in Serum or Plasma 34-104 [facility] ALP [Catalytic activity/Vol] 85 U/L Normal 34-104 [facility] Comment on above: Result Comment: PERF ORMED BY: [place] [address] PATHOLOGIST VETERINARY ATTENDANT SUSAN FREGOSO M.D. Performed By: #### S CAN CBC, LDH, CMP #### [place] [address] [place] Aspartate aminotransferase [ Enzymatic activity/volume] in Serum or PlasmaOrdered By: Russell Gómez on 11-30-2024 AST [Catalytic activity/Vol] Aspartate aminotransferase [Enzymatic activity/volume] in Serum or Plasma 13-39 [facility] AST [Catalytic activity/Vol] 29 U/L Normal 13-39 [facility] Comment on above: Performed By: #### S CAN CBC, LDH, CMP #### [address] Basophils Auto (Bld) [#/Vol] Ordered By: Russell Gómez on 11-30-2024 Basophils (Bld) [#/Vol] Automated basophil count 0.0-0.2 [facility] Basophils [#/volume] in Bloo d by Automated countOrdered By: Russell Gómez on 11-30-2024 Basophils (Bld) [#/Vol] 0.0 10*3/uL Normal 0.0-0.2 [facility] Comment on above: Result Comment: PERF ORMED BY: [address] [place] [address] PATHOLOGIST VETERINARY ATTENDANT SUSAN FREGOSO M.D. Performed By: #### S CAN CBC, LDH, CMP #### [address] Basophils/100 WBC Auto (Bld) Ordered By: Russell Gómez on 11-30-2024 Basophils/100 WBC (Bld) Automated basophil % . [facility] Basophils/100 leukocytes in Blood by Automated countOrdered By: Russell Gómez on 11-30-2024 Basophils/100 WBC (Bld) 0.2 % Normal . [facility] Comment on above: Performed By: #### S CAN CBC, LDH, CMP #### [address] Bilirubin.total [Mass/volume ] in Serum or PlasmaOrdered By: Russell Gómez on 11-30-2024 Bilirubin [Mass/Vol] Bilirubin.total [Mass/volume] in Serum or Plasma 0.3-1.0 [facility] Bilirubin [Mass/Vol] 1.0 mg/dL Normal 0.3-1.0 [facility] Comment on above: Performed By: #### S CAN CBC, LDH, CMP #### [address] Blood estimated average gluc ose determination by estimation from glycated hemoglobinOrdered By: Russell Gómez on 11-30-2024 Average glucose Estimated from glycated hemoglobin (Bld) [Mass/Vol] Glucose mean value [Mass/volume] in Blood Estimated from glycated hemoglobin [facility] Average glucose Estimated from glycated hemoglobin (Bld) [Mass/Vol] 94 mg/dL [facility] Calcium [Mass/volume] in Ser um or PlasmaOrdered By: Russell Gómez on 11-30-2024 Calcium [Mass/Vol] Calcium [Mass/volume ] in Serum or Plasma 8.6-10.3 [facility] Calcium [Mass/Vol] 9.5 mg/dL Normal 8.6-10.3 [facility] Comment on above: Performed By: #### S CAN CBC, LDH, CMP #### [facility] [address] [place] [address] Carbon dioxide, total [Moles /volume] in Serum or PlasmaOrdered By: Russell Gómez on 11-30-2024 CO2 [Moles/Vol] Carbon dioxide, tota l [Moles/volume] in Serum or Plasma High 21.0-31.0 [facility] CO2 [Moles/Vol] 34.1 mmol/L High 21.0-31.[address] [facility] Comment on above: Performed By: #### S CAN CBC, LDH, CMP #### [facility] [address] [place] [address] [place] Chloride [Moles/volume] in S hesham or PlasmaOrdered By: Russell Gómez on 11-30-2024 Chloride [Moles/Vol] Chloride [Moles/vol ume] in Serum or Plasma 98-107 [facility] Chloride [Moles/Vol] 104 mmol/L Normal 98-107 [facility] Comment on above: Performed By: #### S CAN CBC, LDH, CMP #### [facility] [address] [place] [address] [place] Cholesterol [Mass/volume] in Serum or PlasmaOrdered By: Russell Gómez on 11-30-2024 Cholesterol [Mass/Vol] Cholesterol [Mass /volume] in Serum or Plasma 140-200 [facility] Comment on above: Chol less than 200 m g/dl low riskChol 201-239 mg/dl borderline riskChol 240 mg/dl and greater high risk Cholesterol [Mass/Vol] 169 mg/dL Normal 140-200 [facility] Comment on above: Chol less than 200 m g/dl low riskChol 201-239 mg/dl borderline riskChol 240 mg/dl and greater high risk Result Comment: Chol less than 200 mg/dl low risk Chol 201-239 mg/dl borderline risk Chol 240 mg/dl and greater high risk Performed By: #### L IPID, CHC CBC, EMP PSA, A1C [facility] eA, CMP ####[facility] [address] [place] [address] [facility] Cholesterol in HDL [Mass/vol ume] in Serum or PlasmaOrdered By: Russell Gómez on 11-30-2024 Cholesterol in HDL [Mass/Vol] Serum or plasma high density lipoprotein (HDL) cholesterol measurement [facility] Comment on above: HDL CHOL ATP-III CLA SSIFICATION Cardiovascular RiskHDL > or equal to 60 mg/dL LOWHDL < 40 mg/dL HIGH Cholesterol in HDL [Mass/Vol] 59 mg/dL Normal [facility] Comment on above: HDL CHOL ATP-III CLA SSIFICATION Cardiovascular RiskHDL > or equal to 60 mg/dL LOWHDL < 40 mg/dL HIGH Result Comment: HDL CHOL ATP-III CLASSIFICATION Cardiovascular Risk HDL > or equal to 60 mg/dL LOW HDL < 40 mg/dL HIGH Performed By: #### L IPID, CHC CBC, EMP PSA, A1C [facility] eA, CMP ####[facility] [address] [place] [address] [place] Cholesterol in LDL Calc [Mas s/Vol]Ordered By: Russell Gómez on 11-30-2024 Cholesterol in LDL [Mass/Vol] Cholesterol in LDL [Mass/volume] in Serum or Plasma by calculation 0 [facility] Comment on above: LDL ATP III CLASSIFI CATIONLDL less than 100 mg/dL OptimalLDL 100-129 mg/dL Near or above optimalLDL 130-159 mg/dL Borderline highLDL 160-189 mg/dL HighLDL greater than 189 mg/dL Very high Cholesterol in LDL [Mass/Vol] 93 mg/dL 0-100 [facility] Comment on above: LDL ATP III CLASSIFI CATIONLDL less than 100 mg/dL OptimalLDL 100-129 mg/dL Near or above optimalLDL 130-159 mg/dL Borderline highLDL 160-189 mg/dL HighLDL greater than 189 mg/dL Very high Cholesterol in VLDL Calc [Ma ss/Vol]Ordered By: Russell Gómez on 11-30-2024 Cholesterol in VLDL [Mass/Vol] Cholesterol in VLDL [Mass/volume] in Serum or Plasma by calculation [facility] Cholesterol in VLDL [Mass/Vol] 17 mg/dL [facility] Complete Blood Count no refl exon 11-30-2024 Mean Corpuscular HGB Conc 34.3 g/dL Normal 32.5-35.6 [facility] Comment on above: Performed By: #### S CAN CBC, LDH, CMP #### [address] NRBC% 0.2 /100{WBC} Normal 0-0.5 [facility] Comment on above: Performed By: #### S CAN CBC, LDH, CMP #### [facility] [address] [place] [address] Comprehensive Metabolic Pane aline 11-30-2024 Albumin [Mass/Vol] 4.3 g/dL Normal 3.5-5.7 [facility] Comment on above: Performed By: #### S CAN CBC, LDH, CMP #### [facility] [address] [place] [address] GFR/1.73 sq M.predicted MDRD (S/P/Bld) [Vol rate/Area] mL/min/{1.73_m2} Normal [facility] Comment on above: Performed By: #### S CAN CBC, LDH, CMP #### [facility] [address] [place] [address] Creatinine [Mass/volume] in Serum or PlasmaOrdered By: Russell Gómez on 11-30-2024 Creatinine [Mass/Vol] Creatinine [Mass/v olume] in Serum or Plasma 0.70-1.30 [facility] Creatinine [Mass/Vol] 0.81 mg/dL Normal 0.70-1.30 [facility] Comment on above: Performed By: #### S CAN CBC, LDH, CMP #### [facility] [address] [place] [address] Employee PSA Totalon 025 PSA Total ([facility] Orders) 0.650 ng/mL Normal 0.000-4.00 0 [facility] Comment on above: Result Comment: Seri al tumor marker results determined by assays using different manufacturers or methods may not be comparable. [facility] outpatient services director and method: [employer] DXI, CHEMILUMINESCENT IMMUNOASSAY. PERFORMED BY: [place] [address] PATHOLOGIST VETERINARY ATTENDANT SUSAN FREGOSO M.D. Performed By: #### S CAN CBC, LDH, CMP #### [address] Eosinophils Auto (Bld) [#/Vo l]Ordered By: Russell Gómez on 11-30-2024 Eosinophils (Bld) [#/Vol] Automated eosinophil count 0.0-0.45 [facility] Eosinophils [#/volume] in Bl ood by Automated countOrdered By: Russell Gómez on 11-30-2024 Eosinophils (Bld) [#/Vol] 0.2 10*3/uL Normal 0.0-0.45 [facility] Comment on above: Performed By: #### S CAN CBC, LDH, CMP #### [address] Eosinophils/100 WBC Auto (Bl d)Ordered By: Russell Gómez on 11-30-2024 Eosinophils/100 WBC (Bld) Automated eosinophil % . [facility] Eosinophils/100 leukocytes i n Blood by Automated countOrdered By: Russell Gómez on 11-30-2024 Eosinophils/100 WBC (Bld) 1.1 % Normal . [facility] Comment on above: Performed By: #### S CAN CBC, LDH, CMP #### [facility] [address] [place] [address] Erythrocyte distribution wid th Auto (RBC) [Ratio]Ordered By: Russell Gómez on 11-30-2024 Erythrocyte distribution width (RBC) [Ratio] Erythrocyte distribution width [Ratio] by Automated count 12.0-14.8 [facility] Erythrocyte distribution wid th [Ratio] by Automated countOrdered By: Russell Gómez on 11-30-2024 Erythrocyte distribution width (RBC) [Ratio] 13.2 % Normal 12.0-14.8 [facility] Comment on above: Performed By: #### S CAN CBC, LDH, CMP #### [facility] [address] Erythrocytes [#/volume] in B lood by Automated countOrdered By: Russell Gómez on 11-30-2024 RBC (Bld) [#/Vol] 4.67 10*6/uL Normal 3.90-5.60 [facility] Comment on above: Performed By: #### S CAN CBC, LDH, CMP #### [facility] [address] Globulin Calc (S) [Mass/Vol] Ordered By: Russell Gómez on 11-30-2024 Globulin (S) [Mass/Vol] Serum globulin measurement by calculation (mass/volume) [facility] Glucose [Mass/volume] in Ser um or PlasmaOrdered By: Russell Gómez on 11-30-2024 Glucose [Mass/Vol] Glucose [Mass/volume ] in Serum or Plasma 70-100 [facility] Comment on above: ADA recommended refe rence rangeRandom Glucose Reference Range is dependent on time and content of last meal. Glucose of more than 200 mg/dL in a nonstressed, ambulatory subject supports the diagnosis of Diabetes Mellitus. Glucose [Mass/Vol] 91 mg/dL Normal 70-100 [facility] Comment on above: ADA recommended refe rence rangeRandom Glucose Reference Range is dependent on time and content of last meal. Glucose of more than 200 mg/dL in a nonstressed, ambulatory subject supports the diagnosis of Diabetes Mellitus. Result Comment: [place] Glucose Reference Range is dependent on time and content of last meal. Glucose of more than 200 mg/dL in a nonstressed, ambulatory subject supports the diagnosis of Diabetes Mellitus. ADA recommended reference range Performed By: #### S CAN CBC, LDH, CMP #### [facility] [address] Hematocrit Auto (Bld) [Volum e fraction]Ordered By: Russell Gómez on 11-30-2024 Hematocrit (Bld) [Volume fraction] Hematocrit [Volume Fraction] of Blood by Automated count 38.8-50.0 [facility] Hematocrit [Volume Fraction] of Blood by Automated countOrdered By: Russell Gómez on 11-30-2024 Hematocrit (Bld) [Volume fraction] 43.3 % Normal 38.8-50.0 [facility] Comment on above: Performed By: #### S CAN CBC, LDH, CMP #### [facility] [address] [place] [address] Hemoglobin A1c/Hemoglobin.to edouard in BloodOrdered By: Russell Gómez on 11-30-2024 HbA1c (Bld) [Mass fraction] Hemoglobin A1c percentage 4.3-5.6 [facility] Comment on above: Increased risk for d iabetes: 5.7 - 6.4diabetes: >6.4glycemic control for adults with diabetes: <7.0 HbA1c (Bld) [Mass fraction] 4.9 % Normal 4.3-5.6 [facility] Comment on above: Increased risk for d iabetes: 5.7 - 6.4diabetes: >6.4glycemic control for adults with diabetes: <7.0 Result Comment: Incr eased risk for diabetes: 5.7 - 6.4 diabetes: >6.4 glycemic control for adults with diabetes: <7.0 Performed By: #### S CAN CBC, LDH, CMP #### [facility] [address] [place] [address] Hemoglobin [Mass/volume] in BloodOrdered By: Russell Gómez on 11-30-2024 Hemoglobin (Bld) [Mass/Vol] Hemoglobin [Mass/volume] in Blood 13.0-17.0 [facility] Hemoglobin (Bld) [Mass/Vol] 14.9 g/dL Normal 13.0-17.0 [facility] Comment on above: Performed By: #### S CAN CBC, LDH, CMP #### [facility] [address] Leukocytes [#/volume] correc christophe for nucleated erythrocytes in Blood by Automated counOrdered By: Russell Gómez on 11-30-2024 WBC corrected for nucl RBC Auto (Bld) [#/Vol] Leukocytes [#/volume] corrected for nucleated erythrocytes in Blood by Automated coun High 4.1-10.5 [facility] WBC corrected for nucl RBC Auto (Bld) [#/Vol] 19.5 10*3/uL High 4.1-10.5 [facility] Leukocytes [#/volume] in Blo od by Automated countOrdered By: Russell Gómez on 11-30-2024 WBC (Bld) [#/Vol] 19.5 10*3/uL High 4.1-10.5 [facility] Comment on above: Performed By: #### S CAN CBC, LDH, CMP #### [facility] [address] Lipid Panelon 11-30-2024 LDL Cholesterol,Calculated 93 mg/dL Normal 0-100 [facility] Comment on above: Result Comment: LDL ATP III CLASSIFICATION LDL less than 100 mg/dL Optimal LDL 100-129 mg/dL Near or above optimal LDL 130-159 mg/dL Borderline high LDL 160-189 mg/dL High LDL greater than 189 mg/dL Very high Performed By: #### L IPID, CHC CBC, EMP PSA, A1C [facility] eA, CMP ####[address] Triglyceride w/Reflex 86 mg/dL Normal 0-149 [facility] Comment on above: Result Comment: TRIG ATP III CLASSIFICATION TRIG less than 150 mg/dL Normal TRIG 150-199 mg/dL Borderline high TRIG 200-500 mg/dL High TRIG greater than 500 mg/dL Very high Standard traceable to the Center for Disease Conrtrol and Prevention (CDC) test method. Performed By: #### L IPID, CHC CBC, EMP PSA, A1C [facility] eA, CMP ####[facility] VLDL CHOLESTEROL 17 mg/dL Normal [facility] Comment on above: Performed By: #### L IPID, CHC CBC, EMP PSA, A1C [facility] eA, CMP ####[facility] [address] Lymphocytes Auto (Bld) [#/Vo l]Ordered By: Russell Gómez on 11-30-2024 Lymphocytes (Bld) [#/Vol] Lymphocytes [#/volume] in Blood by Automated count High 1.00-4.8 [facility] Lymphocytes [#/volume] in Bl ood by Automated countOrdered By: Russell Gómez on 11-30-2024 Lymphocytes (Bld) [#/Vol] 14.4 10*3/uL High 1.00-4.8 [facility] Comment on above: Performed By: #### S CAN CBC, LDH, CMP #### [facility] [address] [place] [address] Lymphocytes/100 WBC Auto (Bl d)Ordered By: Russell Gómez on 11-30-2024 Lymphocytes/100 WBC (Bld) Lymphocytes/100 leukocytes in Blood by Automated count . [facility] Lymphocytes/100 leukocytes i n Blood by Automated countOrdered By: Russell Gómez on 11-30-2024 Lymphocytes/100 WBC (Bld) 74.0 % Normal . [facility] Comment on above: Performed By: #### S CAN CBC, LDH, CMP #### [facility] [address] [place] [address] MCH Auto (RBC) [Entitic mass ]Ordered By: Russell Gómez on 11-30-2024 MCH (RBC) [Entitic mass] MCH [Entitic mass] by Automated count 27.5-35.2 [facility] MCH [Entitic mass] by Automa christophe countOrdered By: Russell Gómez on 11-30-2024 MCH (RBC) [Entitic mass] 31.8 pg Normal 27.5-35.2 [facility] Comment on above: Performed By: #### S CAN CBC, LDH, CMP #### [facility] [address] [place] [address] MCHC Auto (RBC) [Mass/Vol]Or dered By: Russell Gómez on 11-30-2024 MCHC (RBC) [Mass/Vol] MCHC [Mass/volume] by Automated count 32.5-35.6 [facility] MCHC (RBC) [Mass/Vol] 34.3 g/dL 32.5-35.6 [facility] MCV Auto (RBC) [Entitic vol] Ordered By: Russell Gómez on 11-30-2024 MCV (RBC) [Entitic vol] MCV [Entitic volume] by Automated count 83.5-101 [facility] MCV [Entitic volume] by Auto mated countOrdered By: Russell Gómez on 11-30-2024 MCV (RBC) [Entitic vol] 92.8 fL Normal 83.5-101 [facility] Comment on above: Performed By: #### S CAN CBC, LDH, CMP #### [facility] [address] [place] [address] Monocytes Auto (Bld) [#/Vol] Ordered By: Russell Gómez on 11-30-2024 Monocytes (Bld) [#/Vol] Automated blood monocyte count 0.0-0.8 [facility] Monocytes [#/volume] in Bloo d by Automated countOrdered By: Russell Gómez on 11-30-2024 Monocytes (Bld) [#/Vol] 0.4 10*3/uL Normal 0.0-0.8 [facility] Comment on above: Performed By: #### S CAN CBC, LDH, CMP #### [facility] [address] [place] [address] Monocytes/100 WBC Auto (Bld) Ordered By: Russell Gómez on 11-30-2024 Monocytes/100 WBC (Bld) Automated monocyte % . [facility] Monocytes/100 leukocytes in Blood by Automated countOrdered By: Russell Gómez on 11-30-2024 Monocytes/100 WBC (Bld) 2.3 % Normal . [facility] Comment on above: Performed By: #### S CAN CBC, LDH, CMP #### [facility] [address] [place] [address] [place] Neutrophils Auto (Bld) [#/Vo l]Ordered By: Russell Gómez on 11-30-2024 Neutrophils (Bld) [#/Vol] Neutrophils [#/volume] in Blood by Automated count 1.8-7.7 [facility] Neutrophils [#/volume] in Bl ood by Automated countOrdered By: Russell Gómez on 11-30-2024 Neutrophils (Bld) [#/Vol] 4.4 10*3/uL Normal 1.8-7.7 [facility] Comment on above: Performed By: #### S CAN CBC, LDH, CMP #### [facility] [address] Neutrophils/100 WBC Auto (Bl d)Ordered By: Russell Gómez on 11-30-2024 Neutrophils/100 WBC (Bld) Automated neutrophil % . [facility] Neutrophils/100 leukocytes i n Blood by Automated countOrdered By: Russell Gómez on 11-30-2024 Neutrophils/100 WBC (Bld) 22.4 % Normal . [facility] Comment on above: Performed By: #### S CAN CBC, LDH, CMP #### [facility] [address] No Panel InformationOrdered By: Russell Gómez on 11-30-2024 Estimated GFR (CKD-EPI) > 60.0 mL/[facility] Creatinine Clearance (Chem N/A [facility] Nucleated erythrocytes [Pres ence] in Blood by Automated countOrdered By: Russell Gómez on 11-30-2024 Nucleated RBC Auto Ql (Bld) Nucleated erythrocytes [Presence] in Blood by Automated count 0-0.5 [facility] Nucleated RBC Auto Ql (Bld) 0.2 /100{WBC} 0-0.5 [facility] Platelet mean volume Auto (B ld) [Entitic vol]Ordered By: Russell Gómez on 11-30-2024 Platelet mean volume (Bld) [Entitic vol] Platelet mean volume [Entitic volume] in Blood by Automated count 6.6-10.1 [facility] Platelet mean volume [Entiti c volume] in Blood by Automated countOrdered By: Russell Gómez on 11-30-2024 Platelet mean volume (Bld) [Entitic vol] 8.6 fL Normal 6.6-10.1 [facility] Comment on above: Performed By: #### S CAN CBC, LDH, CMP #### [facility] [address] Platelets Auto (Bld) [#/Vol] Ordered By: Russell Gómez on 11-30-2024 Platelets (Bld) [#/Vol] Platelets [#/volume] in Blood by Automated count Low 150-450 [facility] Platelets [#/volume] in Bloo d by Automated countOrdered By: Russell Gómez on 11-30-2024 Platelets (Bld) [#/Vol] 121 10*3/uL Low 150-450 [facility] Comment on above: Performed By: #### S CAN CBC, LDH, CMP #### [facility] [address] Potassium [Moles/volume] in Serum or PlasmaOrdered By: Russell Gómez on 11-30-2024 Potassium [Moles/Vol] Potassium [Moles/v olume] in Serum or Plasma 3.5-5.1 [facility] Potassium [Moles/Vol] 3.8 mmol/L Normal 3.5-5.1 [facility] Comment on above: Performed By: #### S CAN CBC, LDH, CMP #### [facility] [address] Prostate specific Ag [Mass/v olume] in Serum or PlasmaOrdered By: Russell Gómez on 11-30-2024 Prostate specific Ag [Mass/Vol] Prostate specific Ag [Mass/volume] in Serum or Plasma 0.000-4.00 0 [facility] Comment on above: Serial tumor marker results determined by assays using different manufacturers or methods may not be comparable.[facility] outpatient services director and method:[employer], CHEMILUMINESCENT IMMUNOASSAY. Prostate specific Ag [Mass/Vol] 0.650 ng/mL 0.000-4.00 0 [facility] Comment on above: Serial tumor marker results determined by assays using different manufacturers or methods may not be comparable.[facility] outpatient services director and method:[employer] DXI, CHEMILUMINESCENT IMMUNOASSAY. Protein [Mass/volume] in Ser um or PlasmaOrdered By: Russell Gómez on 11-30-2024 Protein [Mass/Vol] Protein [Mass/volume ] in Serum or Plasma Low 6.4-8.9 [facility] Protein [Mass/Vol] 6.3 g/dL Low 6.4-8.9 [facility] Comment on above: Performed By: #### S CAN CBC, LDH, CMP #### [facility] [address] [place] [address] RBC Auto (Bld) [#/Vol]Ordere d By: Russell Gómez on 11-30-2024 RBC (Bld) [#/Vol] Erythrocytes [#/volu me] in Blood by Automated count 3.90-5.60 [facility] Serum globulin measurement b y calculation (mass/volume)Ordered By: Russell Gómez on 11-30-2024 Globulin (S) [Mass/Vol] 2.0 g/dL Normal [facility] Comment on above: Performed By: #### S CAN CBC, LDH, CMP #### [facility] [address] [place] [address] Serum or plasma albumin/glob ulin mass ratioOrdered By: Russell Gómez on 11-30-2024 Albumin/Globulin [Mass ratio] Serum or plasma albumin/globulin mass ratio [facility] Albumin/Globulin [Mass ratio] 2.2 {ratio} [facility] Comment on above: Performed By: #### S CAN CBC, LDH, CMP #### [facility] [address] [place] [address] Serum or plasma anion gap de terminationOrdered By: Russell Gómez on 11-30-2024 Anion gap [Moles/Vol] Serum or plasma an ion gap determination 6.0-15.0 [facility] Anion gap [Moles/Vol] 7.7 mmol/L Normal 6.0-15.0 [facility] Comment on above: Performed By: #### S CAN CBC, LDH, CMP #### [facility] [address] [place] [address] Serum or plasma total choles terol/high density lipoprotein (HDL) cholesterol mass ratOrdered By: Russell Gómez on 11-30-2024 Cholesterol.total/Chol esterol in HDL [Mass ratio] Serum or plasma total cholesterol/high density lipoprotein (HDL) cholesterol mass rat <5.0 [facility] Cholesterol.total/Chol esterol in HDL [Mass ratio] 2.9 {ratio} Normal <5.0 [facility] Comment on above: Result Comment: PERF ORMED BY: [facility] [address] [place] [address] PATHOLOGIST VETERINARY ATTENDANT SUSAN FREGOSO M.D. Performed By: #### L IPID, CHC CBC, EMP PSA, A1C WTH eA, CMP ####[id number] Sodium [Moles/volume] in Ser um or PlasmaOrdered By: Russell Gómez on 11-30-2024 Sodium [Moles/Vol] Sodium [Moles/volume ] in Serum or Plasma 136-145 [facility] Sodium [Moles/Vol] 142 mmol/L Normal 136-145 [facility] Comment on above: Performed By: #### S CAN CBC, LDH, CMP #### [facility] [address] Triglyceride [Mass/volume] i n Serum or PlasmaOrdered By: Russell Gómez on 11-30-2024 Triglyceride [Mass/Vol] Triglyceride [Mass/volume] in Serum or Plasma 0-149 [facility] Comment on above: TRIG ATP III CLASSIF ICATIONTRIG less than 150 mg/dL NormalTRIG 150-199 mg/dL Borderline highTRIG 200-500 mg/dL High TRIG greater than 500 mg/dL Very highStandard traceable to the Center for Disease Conrtrol and Prevention (CDC) test method. Triglyceride [Mass/Vol] 86 mg/dL 0-149 [facility] Comment on above: TRIG ATP III CLASSIF ICATIONTRIG less than 150 mg/dL NormalTRIG 150-199 mg/dL Borderline highTRIG 200-500 mg/dL High TRIG greater than 500 mg/dL Very highStandard traceable to the Center for Disease Conrtrol and Prevention (CDC) test method. Urea nitrogen [Mass/volume] in Serum or PlasmaOrdered By: Russell Gómez on 11-30-2024 Urea nitrogen [Mass/Vol] Urea nitrogen [Mass/volume] in Serum or Plasma 03-18 [facility] Urea nitrogen [Mass/Vol] 15 mg/dL Normal 03-18 [facility] Comment on above: Performed By: #### S CAN CBC, LDH, CMP #### [facility] [address] [place] [id number] [facility] WBC Auto (Bld) [#/Vol]Ordere d By: Russell Gómez on 11-30-2024 WBC (Bld) [#/Vol] Leukocytes [#/volume ] in Blood by Automated count High 4.1-10.5 [facility] Alanine aminotransferase [En zymatic activity/volume] in Serum or PlasmaOrdered By: Jose Solares on 11-12-2024 ALT [Catalytic activity/Vol] Alanine aminotransferase [Enzymatic activity/volume] in Serum or Plasma 7 [facility] Albumin [Mass/volume] in Ser um or Plasma by Bromocresol green (BCG) dye binding methoOrdered By: Jose Solares on 11-12-2024 Albumin BCG dye [Mass/Vol] Albumin [Mass/volume] in Serum or Plasma by Bromocresol green (BCG) dye binding metho 3.5-5.7 [facility] Alkaline phosphatase [Enzyma tic activity/volume] in Serum or PlasmaOrdered By: Jose Solares on 11-12-2024 ALP [Catalytic activity/Vol] Alkaline phosphatase [Enzymatic activity/volume] in Serum or Plasma 34-104 [facility] Aspartate aminotransferase [ Enzymatic activity/volume] in Serum or PlasmaOrdered By: Jose Solares on 11-12-2024 AST [Catalytic activity/Vol] Aspartate aminotransferase [Enzymatic activity/volume] in Serum or Plasma 13-39 [facility] Basophils Auto (Bld) [#/Vol] Ordered By: Jose Solares on 11-12-2024 Basophils (Bld) [#/Vol] Automated basophil count 0.0-0.2 [facility] Basophils/100 WBC Auto (Bld) Ordered By: Jose Solares on 11-12-2024 Basophils/100 WBC (Bld) Automated basophil % . [facility] Bilirubin.total [Mass/volume ] in Serum or PlasmaOrdered By: Jose Solares on 11-12-2024 Bilirubin [Mass/Vol] Bilirubin.total [Mass/volume] in Serum or Plasma High 0.3-1.0 [facility] Calcium [Mass/volume] in Ser um or PlasmaOrdered By: Jose Elisemarilyn on 11-12-2024 Calcium [Mass/Vol] Calcium [Mass/volume ] in Serum or Plasma 8.6-10.3 [facility] Carbon dioxide, total [Moles /volume] in Serum or PlasmaOrdered By: Jose Solares on 11-12-2024 CO2 [Moles/Vol] Carbon dioxide, tota l [Moles/volume] in Serum or Plasma High 21.0-31.0 [facility] Chloride [Moles/volume] in S hesham or PlasmaOrdered By: Jose Sujatha on 11-12-2024 Chloride [Moles/Vol] Chloride [Moles/vol ume] in Serum or Plasma 98-107 [facility] Comprehensive Metabolic Pane aline 11-12-2024 Albumin [Mass/Vol] 4.4 g/dL Normal 3.5-5.7 [facility] Comment on above: Performed By: #### S CAN CBC, LDH, CMP #### [facility] [address] Albumin/Globulin [Mass ratio] 2.3 {ratio} Normal [facility] Comment on above: Performed By: #### S CAN CBC, LDH, CMP #### [facility] [address] ALP [Catalytic activity/Vol] 89 U/L Normal 34-104 [facility] Comment on above: Performed By: #### S CAN CBC, LDH, CMP #### [facility] [address] [place] [id number] [place] ALT [Catalytic activity/Vol] 28 U/L Normal 7-52 [facility] Comment on above: Performed By: #### S CAN CBC, LDH, CMP #### [facility] [address] [place] [id number] [facility] Anion gap [Moles/Vol] 8.2 mmol/L Normal 6.0-15.0 [facility] Comment on above: Performed By: #### S CAN CBC, LDH, CMP #### [facility] [address] [place] [address] [place] AST [Catalytic activity/Vol] 27 U/L Normal 13-39 [facility] Comment on above: Performed By: #### S CAN CBC, LDH, CMP #### [facility] [address] [place] [address] [place] Bilirubin [Mass/Vol] 1.1 mg/dL High 0.3-1.0 [facility] Comment on above: Performed By: #### S CAN CBC, LDH, CMP #### [place] [address] [place] Calcium [Mass/Vol] 8.8 mg/dL Normal 8.6-10.3 [facility] Comment on above: Performed By: #### S CAN CBC, LDH, CMP #### [address] Chloride [Moles/Vol] 106 mmol/L Normal 98-107 [facility] Comment on above: Performed By: #### S CAN CBC, LDH, CMP #### [place] [address] [place] CO2 [Moles/Vol] 31.9 mmol/L High 21.0-31.0 [facility] Comment on above: Performed By: #### S CAN CBC, LDH, CMP #### [place] [address] [place] Creatinine [Mass/Vol] 0.83 mg/dL Normal 0.70-1.30 [facility] Comment on above: Performed By: #### S CAN CBC, LDH, CMP #### [place] [address] [place] Creatinine Clr Calc Pharmacy 97.39 Normal [facility] Comment on above: Performed By: #### S CAN CBC, LDH, CMP #### [place] [address] [place] GFR/1.73 sq M.predicted MDRD (S/P/Bld) [Vol rate/Area] mL/min/{1.73_m2} Normal [facility] Comment on above: Performed By: #### S CAN CBC, LDH, CMP #### [facility] [address] Globulin (S) [Mass/Vol] 1.9 g/dL Normal [facility] Comment on above: Performed By: #### S CAN CBC, LDH, CMP #### [address] Glucose [Mass/Vol] 93 mg/dL Normal 70-100 [facility] Comment on above: Result Comment: [place] Glucose Reference Range is dependent on time and content of last meal. Glucose of more than 200 mg/dL in a nonstressed, ambulatory subject supports the diagnosis of Diabetes Mellitus. ADA recommended reference range Performed By: #### S CAN CBC, LDH, CMP #### [address] Potassium [Moles/Vol] 4.1 mmol/L Normal 3.5-5.1 [facility] Comment on above: Performed By: #### S CAN CBC, LDH, CMP #### [address] Protein [Mass/Vol] 6.3 g/dL Low 6.4-8.9 [facility] Comment on above: Performed By: #### S CAN CBC, LDH, CMP #### [address] Sodium [Moles/Vol] 142 mmol/L Normal 136-145 [facility] Comment on above: Performed By: #### S CAN CBC, LDH, CMP #### [place] [address] [place] Urea nitrogen [Mass/Vol] 17 mg/dL Normal 7-25 [facility] Comment on above: Performed By: #### S CAN CBC, LDH, CMP #### [place] [address] [place] Creatinine [Mass/volume] in Serum or PlasmaOrdered By: Jose Solares on 11-12-2024 Creatinine [Mass/Vol] Creatinine [Mass/v olume] in Serum or Plasma 0.70-1.30 [facility] Eosinophils Auto (Bld) [#/Vo l]Ordered By: Jose Solares on 11-12-2024 Eosinophils (Bld) [#/Vol] Automated eosinophil count 0.0-0.45 [facility] Eosinophils/100 WBC Auto (Bl d)Ordered By: Jose Solares on 11-12-2024 Eosinophils/100 WBC (Bld) Automated eosinophil % . [facility] Erythrocyte distribution wid th Auto (RBC) [Ratio]Ordered By: Jose Solares on 11-12-2024 Erythrocyte distribution width (RBC) [Ratio] Erythrocyte distribution width [Ratio] by Automated count 12.0-14.8 [facility] Erythrocyte morphology findi ng [Identifier] in BloodOrdered By: Jose Solares on 11-12-2024 RBC morphology finding Nom (Bld) RBC morphology Normal [facility] Globulin Calc (S) [Mass/Vol] Ordered By: Jose Sujatha on 11-12-2024 Globulin (S) [Mass/Vol] Serum globulin measurement by calculation (mass/volume) [facility] Glucose [Mass/volume] in Ser um or PlasmaOrdered By: Jose Sujatha on 11-12-2024 Glucose [Mass/Vol] Glucose [Mass/volume ] in Serum or Plasma 70-100 [facility] Comment on above: ADA recommended refe rence rangeRandom Glucose Reference Range is dependent on time and content of last meal. Glucose of more than 200 mg/dL in a nonstressed, ambulatory subject supports the diagnosis of Diabetes Mellitus. Hematocrit Auto (Bld) [Volum e fraction]Ordered By: Jose Solares on 11-12-2024 Hematocrit (Bld) [Volume fraction] Hematocrit [Volume Fraction] of Blood by Automated count 38.8-50.0 [facility] Hemoglobin [Mass/volume] in BloodOrdered By: Jose Solares on 11-12-2024 Hemoglobin (Bld) [Mass/Vol] Hemoglobin [Mass/volume] in Blood 13.0-17.0 [facility] LDH Lactate Dehydrogenaseon 11-12-2024 LDH Lactate Dehydrogenase 242 U/L Normal 140-271 [facility] Comment on above: Result Comment: PERF ORMED BY: [facility] [address] [place] [address] PATHOLOGIST VETERINARY ATTENDANT SUSAN FREGOSO M.D. Performed By: #### S CAN CBC, LDH, CMP #### [facility] [address] [place] [id number] [facility] Lactate dehydrogenase [Enzym atic activity/volume] in Serum or Plasma by Lactate to pyOrdered By: Jose Solares on 11-12-2024 LDH Lactate to pyruvate reaction [Catalytic activity/Vol] Lactate dehydrogenase [Enzymatic activity/volume] in Serum or Plasma by Lactate to py 140-271 [facility] Leukocytes [#/volume] correc christophe for nucleated erythrocytes in Blood by Automated counOrdered By: Jose Solares on 11-12-2024 WBC corrected for nucl RBC Auto (Bld) [#/Vol] Leukocytes [#/volume] corrected for nucleated erythrocytes in Blood by Automated coun High 4.1-10.5 [facility] Lymphocytes Auto (Bld) [#/Vo l]Ordered By: Jose Solares on 11-12-2024 Lymphocytes (Bld) [#/Vol] Lymphocytes [#/volume] in Blood by Automated count High 1.00-4.8 [facility] Lymphocytes/100 WBC Auto (Bl d)Ordered By: Jose Solares on 11-12-2024 Lymphocytes/100 WBC (Bld) Lymphocytes/100 leukocytes in Blood by Automated count . [facility] MCH Auto (RBC) [Entitic mass ]Ordered By: Jose Solares on 11-12-2024 MCH (RBC) [Entitic mass] MCH [Entitic mass] by Automated count 27.5-35.2 [facility] MCHC Auto (RBC) [Mass/Vol]Or dered By: Jose Solares on 11-12-2024 MCHC (RBC) [Mass/Vol] MCHC [Mass/volume] by Automated count 32.5-35.6 [facility] MCV Auto (RBC) [Entitic vol] Ordered By: Jose Solares on 11-12-2024 MCV (RBC) [Entitic vol] MCV [Entitic volume] by Automated count 83.5-101 [facility] Monocytes Auto (Bld) [#/Vol] Ordered By: Jose Solaers on 11-12-2024 Monocytes (Bld) [#/Vol] Automated blood monocyte count 0.0-0.8 [facility] Monocytes/100 WBC Auto (Bld) Ordered By: Jose Solares on 11-12-2024 Monocytes/100 WBC (Bld) Automated monocyte % . [facility] Neutrophils Auto (Bld) [#/Vo l]Ordered By: Jose Solares on 11-12-2024 Neutrophils (Bld) [#/Vol] Neutrophils [#/volume] in Blood by Automated count 1.8-7.7 [facility] Neutrophils/100 WBC Auto (Bl d)Ordered By: Jose Solares on 11-12-2024 Neutrophils/100 WBC (Bld) Automated neutrophil % . [facility] No Panel InformationOrdered By: Jose Solares on 11-12-2024 Estimated GFR (CKD-EPI) > 60.0 mL/Min [facility] Creatinine Clearance (Chem 97.39 [facility] Nucleated erythrocytes [Pres ence] in Blood by Automated countOrdered By: Jose Solares on 11-12-2024 Nucleated RBC Auto Ql (Bld) Nucleated erythrocytes [Presence] in Blood by Automated count 0-0.5 [facility] Platelet adequacy [Presence] in Blood by Light microscopyOrdered By: Jose Solares on 11-12-2024 Platelets LM Ql (Bld) Platelet adequacy [Presence] in Blood by Light microscopy Normal [facility] Platelet mean volume Auto (B ld) [Entitic vol]Ordered By: Jose Solares on 11-12-2024 Platelet mean volume (Bld) [Entitic vol] Platelet mean volume [Entitic volume] in Blood by Automated count 6.6-10.1 [facility] Platelet morphology finding [Identifier] in BloodOrdered By: Jose Solares on 11-12-2024 Platelet morphology finding Nom (Bld) Platelet morphology finding [Identifier] in Blood Normal [facility] Platelets Auto (Bld) [#/Vol] Ordered By: Jose Solares on 11-12-2024 Platelets (Bld) [#/Vol] Platelets [#/volume] in Blood by Automated count Low 150-450 [facility] Potassium [Moles/volume] in Serum or PlasmaOrdered By: Jose Solares on 11-12-2024 Potassium [Moles/Vol] Potassium [Moles/v olume] in Serum or Plasma 3.5-5.1 [facility] Protein [Mass/volume] in Ser um or PlasmaOrdered By: Jose Solares on 11-12-2024 Protein [Mass/Vol] Protein [Mass/volume ] in Serum or Plasma Low 6.4-8.9 [facility] RBC Auto (Bld) [#/Vol]Ordere d By: Jose Solares on 11-12-2024 RBC (Bld) [#/Vol] Erythrocytes [#/volu me] in Blood by Automated count 3.90-5.60 [facility] Scan and CBCon 11-12-2024 Basophils (Bld) [#/Vol] 0.1 10*3/uL Normal 0.0-0.2 [facility] Comment on above: Performed By: #### S CAN CBC, LDH, CMP #### [facility] [address] Basophils/100 WBC (Bld) 0.4 % Normal . [facility] Comment on above: Performed By: #### S CAN CBC, LDH, CMP #### [facility] [address] [place] [address] [place] Eosinophils (Bld) [#/Vol] 0.2 10*3/uL Normal 0.0-0.45 [facility] Comment on above: Performed By: #### S CAN CBC, LDH, CMP #### [facility] [address] [place] [address] [place] Eosinophils/100 WBC (Bld) 1.0 % Normal . [facility] Comment on above: Performed By: #### S CAN CBC, LDH, CMP #### [facility] [address] Erythrocyte distribution width (RBC) [Ratio] 12.9 % Normal 12.0-14.8 [facility] Comment on above: Performed By: #### S CAN CBC, LDH, CMP #### [facility] [address] Hematocrit (Bld) [Volume fraction] 41.8 % Normal 38.8-50.0 [facility] Comment on above: Performed By: #### S CAN CBC, LDH, CMP #### [address] Hemoglobin (Bld) [Mass/Vol] 14.7 g/dL Normal 13.0-17.0 [facility] Comment on above: Performed By: #### S CAN CBC, LDH, CMP #### [address] Lymphocytes (Bld) [#/Vol] 13.2 10*3/uL High 1.00-4.8 [facility] Comment on above: Performed By: #### S CAN CBC, LDH, CMP #### [address] Lymphocytes/100 WBC (Bld) 75.9 % Normal . [facility] Comment on above: Performed By: #### S CAN CBC, LDH, CMP #### [address] MCH (RBC) [Entitic mass] 32.2 pg Normal 27.5-35.2 [facility] Comment on above: Performed By: #### S CAN CBC, LDH, CMP #### [address] MCV (RBC) [Entitic vol] 91.7 fL Normal 83.5-101 [facility] Comment on above: Performed By: #### S CAN CBC, LDH, CMP #### [address] Mean Corpuscular HGB Conc 35.1 g/dL Normal 32.5-35.6 [facility] Comment on above: Performed By: #### S CAN CBC, LDH, CMP #### [address] Monocytes (Bld) [#/Vol] 0.4 10*3/uL Normal 0.0-0.8 [facility] Comment on above: Performed By: #### S CAN CBC, LDH, CMP #### [address] Monocytes/100 WBC (Bld) 2.1 % Normal . [facility] Comment on above: Performed By: #### S CAN CBC, LDH, CMP #### [address] Neutrophils (Bld) [#/Vol] 3.6 10*3/uL Normal 1.8-7.7 [facility] Comment on above: Performed By: #### S CAN CBC, LDH, CMP #### [address] Neutrophils/100 WBC (Bld) 20.6 % Normal . [facility] Comment on above: Performed By: #### S CAN CBC, LDH, CMP #### [address] NRBC% 0.2 /100{WBC} Normal 0-0.5 [facility] Comment on above: Performed By: #### S CAN CBC, LDH, CMP #### [address] Platelet Estimate Decreased Normal Normal [facility] Comment on above: Performed By: #### S CAN CBC, LDH, CMP #### [address] Platelet mean volume (Bld) [Entitic vol] 7.9 fL Normal 6.6-10.1 [facility] Comment on above: Performed By: #### S CAN CBC, LDH, CMP #### [address] Platelet Morphology Normal Normal Normal [facility] Comment on above: Result Comment: PERF ORMED BY: [place] [address] PATHOLOGIST VETERINARY ATTENDANT SUSAN FREGOSO M.D. Performed By: #### S CAN CBC, LDH, CMP #### [address] Platelets (Bld) [#/Vol] 136 10*3/uL Low 150-450 [facility] Comment on above: Performed By: #### S CAN CBC, LDH, CMP #### [facility] [address] RBC (Bld) [#/Vol] 4.56 10*6/uL Normal 3.90-5.60 [facility] Comment on above: Performed By: #### S CAN CBC, LDH, CMP #### [facility] [address] RBC morphology finding Nom (Bld) Normal Normal Normal [facility] Comment on above: Performed By: #### S CAN CBC, LDH, CMP #### [facility] [address] WBC (Bld) [#/Vol] 17.4 10*3/uL High 4.1-10.5 [facility] Comment on above: Performed By: #### S CAN CBC, LDH, CMP #### [facility] [address] Serum or plasma albumin/glob ulin mass ratioOrdered By: Jose Solares on 11-12-2024 Albumin/Globulin [Mass ratio] Serum or plasma albumin/globulin mass ratio [facility] Serum or plasma anion gap de terminationOrdered By: Jose Solares on 11-12-2024 Anion gap [Moles/Vol] Serum or plasma an ion gap determination 6.0-15.0 [facility] Sodium [Moles/volume] in Ser um or PlasmaOrdered By: Jose Solares on 11-12-2024 Sodium [Moles/Vol] Sodium [Moles/volume ] in Serum or Plasma 136-145 [facility] Urea nitrogen [Mass/volume] in Serum or PlasmaOrdered By: Jose Solares on 11-12-2024 Urea nitrogen [Mass/Vol] Urea nitrogen [Mass/volume] in Serum or Plasma 7-25 [facility] WBC Auto (Bld) [#/Vol]Ordere d By: Jose Solares on 11-12-2024 WBC (Bld) [#/Vol] Leukocytes [#/volume ] in Blood by Automated count High 4.1-10.5 [facility] XR Hand - left 3 [facility] Result: Three views of the left hand(s), PA/lateral/oblique, taken today and saved to the permanent medical record. Fracture distal phalanx middle finger well healed with advanced DIP joint arthritis. [facility] Reveal XR Knee - right 3 [facility] Result: Three views, bilateral PA weight-bearing, sunrise, lateral of the right knee(s) taken today and saved to the permanent medical record are reviewed. Mild medial compartment joint space narrowing. No acute osseous abnormalities. [facility] Reveal No Panel Informationon 09-30 Aracely De León, ARR T 10/02/2024 9:51 PM L Inj/Asp: R knee on 09/30/2024 4:29 PM Indications: pain Details: 25 G needle, lateral approach Medications: 1.5 mg betamethasone acetate-betamethasone sodium phosphate 6 (3-3) MG/ML Consent was given by the patient. [facility] Reveal XR Hand - left 3 [facility] Study observation (narrative) [facility] Reveal XR Knee - right 3 [facility] Study observation (narrative) [facility] CNOVon 09-21-2024 CNOV Office Visit (CARDAV ) -- DARIUS VALERA ([id number]) 1960 M Date Time Provider Department 09/21/24 4:30 PM TONY ARMSTRONG During your visit today, we recorded the following information about you: Blood pressure Weight Height 142/82 93 kg 1.829 m Tony Armstrong PA-C 09/21/2024 5:03 PM Signed [facility] [place] Sissy Zepeda Department of Cardiovascular Medicine SECTION [...] rare (<1.0%). Isolated VEs were occasional (1.4%, 16075), VE Couplets were rare (<1.0%, 56), and [...] months CONTACT INFORMATION: Tony Armstrong PA-C Cardiology [id number] [facility] [id number] Dept: [phone] Dept Tony Armstrong PA-C 09/21/2024 4:57 PM Signed Please schedule appt with Dr. Tuttle in 6 months Referring Provider: ITA TUTTLE [[id number]] Allergies As of Date: 09/21/2024 (No Known Allergies) Date Reviewed: 09/21/2024 Reviewed by: Donte Iraheta II, RN - Fully Assessed Reason for Visit: Follow Up [171] Primary V (more content not included)... Normal [facility] MR HAND LEFT WO IV CONTRASTo n [...] (Bld)on 07-29-2024 Basophils (Bld) [#/Vol] 0.1 10*3/uL [facility] Basophils/100 WBC (Bld) 0 % Not Estab. [facility] Eosinophils (Bld) [#/Vol] 0.2 10*3/uL [facility] Eosinophils/100 WBC (Bld) 1 % Not Estab. [facility] Erythrocyte distribution width (RBC) [Ratio] 12.7 % 11.6 - 15.4 % [facility] Hematocrit (Bld) [Volume fraction] 44.5 % 37.5 - 51.0 % [facility] Hemoglobin (Bld) [Mass/Vol] 15.1 g/dL 13.0 - 17.7 g/dL [facility] Immature granulocytes (Bld) [#/Vol] 0 10*3/uL [facility] Immature granulocytes/100 WBC (Bld) 0 % Not Estab. [facility] Lymphocytes (Bld) [#/Vol] 12.7 10*3/uL High [facility] Lymphocytes/100 WBC (Bld) 70 % Not Estab. [facility] MCH (RBC) [Entitic mass] 31.1 pg 26.6 - 33.0 pg [facility] MCHC (RBC) [Mass/Vol] 33.9 g/dL 31.5 - 35.7 g/dL [facility] MCV (RBC) [Entitic vol] 92 fL 79 - 97 fL [facility] Monocytes (Bld) [#/Vol] 0.6 10*3/uL [facility] Monocytes/100 WBC (Bld) 4 % [facility]ab. [facility] Neutrophils (Bld) [#/Vol] 4.6 10*3/uL [facility] Neutrophils/100 WBC (Bld) 25 % Not Estab. [facility] Platelets (Bld) [#/Vol] 119 10*3/uL Low [facility] RBC (Bld) [#/Vol] 4.85 10*6/uL [facility] WBC (Bld) [#/Vol] 18.2 10*3/uL High [facility] Comprehensive metabolic pane [facility] 07-29-2024 Albumin [Mass/Vol] 4.5 g/dL 3.9 - 4.9 g/dL [facility] ALP [Catalytic activity/Vol] 102 U/L [facility] ALT [Catalytic activity/Vol] 33 U/L [facility] AST [Catalytic activity/Vol] 33 U/L [facility] Bilirubin [Mass/Vol] 0.6 mg/dL 0.0 - 1 .2 mg/dL [facility] Calcium [Mass/Vol] 9.3 mg/dL 8.6 - 10. 2 mg/dL [facility] Chloride [Moles/Vol] 101 mmol/L 96 - 10 6 mmol/L [facility] CO2 [Moles/Vol] 27 mmol/L 20 - 29 mmol/L [facility] Creatinine [Mass/Vol] 0.96 mg/dL 0.76 - 1.27 mg/dL [facility] GFR/1.73 sq M.predicted among non-blacks MDRD (S/P/Bld) [Vol rate/Area] 88 mL/min/{1.73_m2} 59 - PINF mL/min/1.7 3 [facility] Globulin (S) [Mass/Vol] 1.9 g/dL 1.5 - 4.5 g/dL [facility] [facility] Glucose [Mass/Vol] 100 mg/dL High 70 - 99 mg/dL [facility] Potassium [Moles/Vol] 4 mmol/L 3.5 - 5.2 mmol/L [facility] Protein [Mass/Vol] 6.4 g/dL 6.0 - 8.5 g/dL [facility] Sodium [Moles/Vol] 139 mmol/L 134 - 144 mmol/L [facility] Urea nitrogen [Mass/Vol] 20 mg/dL 8 - 27 mg/dL [facility] Urea nitrogen/Creatinine [Mass ratio] 21 mg/mg 10 - 24 [facility] Lactate dehydrogenaseon LDH Lactate to pyruvate reaction [Catalytic activity/Vol] 261 High [facility] No Panel Informationon 07-29 Interpretation and review of laboratory results Abnormal [facility] Performed at: [address] [id number] Chief Engineer'S Helper: Chad Mccall PhD, Phone: [phone] [facility] Specimen Status Reporton Clindamycin Disk diffusion (KB) [Susc] Comment [facility] Comment on above: Orlando Lock CMP14 D efault [place] Lock CMP14 Default A hand-written panel/profile was received from your office. In accordance with the [facility] Ambiguous Test Code Policy dated February 2003, we have completed your order by using the closest currently or formerly recognized AMA panel. We have assigned Comprehensive Metabolic Panel (14), Test Code #066133 to this request. If this is not the testing you wished to receive on this specimen, please contact the [facility] Client Inquiry/Technical Services Department to clarify [...] 3rd digiton XR finger LT 3rd digit [facility] [place] [address] XRay Report Signed Patient: Darius Valera MR#: [id number] 10 : 1960 Acct:[id number] Age/Sex: 63 / M ADM Date: 07/24/24 Loc: XDUCLY Room: Type: [facility] Attending Dr: Hannah Queen APRN Copies [...] Donte Quevedo M.D.07/24/2024 11:26 AM Dictation Location: [place] [address] Transcribed By: [facility] 07/24/24 1126 Dictated By: Donte Quevedo II, MD 07/24/24 1124 Signed By: 07/24/24 1126 Normal [facility] VITAMIN D 25 HYDROXY,TOT+D2+ D3on 05-03-2024 LAB REINA VITAMIN D 25 OH 53 ng/mL . [facility] Comment on above: Reference Range: All Ages: Target levels 30 - 100 VITAMIN D-2 <1.0 . [facility] Comment on above: This test was develo ped and its performance characteristics determined by [facility]. It has not been cleared or approved by the Food and Drug Administration. VITAMIN D-3 52 ng/mL . [facility] Comment on above: This test was develo ped and its performance characteristics determined by [facility]. It has not been cleared or approved by the Food and Drug Administration. Performed at: [address] [facility] [place], [place] [id number] Chief Engineer'S Helper: Johnnie Jansen MD, Phone: [phone] [facility] Ferritin [Mass/volume] in Se rum or PlasmaOrdered By: Jose Solares on 04-23-2024 Ferritin [Mass/Vol] Ferritin [Mass/volum e] in Serum or Plasma 23.9-336.2 [facility] Ferritin [Mass/Vol] 63.9 ng/mL 23.9-336.2 [facility] Folate [Mass/volume] in Seru m or PlasmaOrdered By: Jose Solares on 04-23-2024 Folate [Mass/Vol] Folate [Mass/volume] in Serum or Plasma >5.9 [facility] Comment on above: Folate reference ran ge: >5.9 ng/mlThe WHO technical consultation on folate and vitamin u02edlfjkatejiz has determined that folate concentrations lessthan 4 ng/ml are considered deficient. Folate [Mass/Vol] 16.9 ng/mL >5.9 [facility] Comment on above: Folate reference ran ge: >5.9 ng/mlThe WHO technical consultation on folate and vitamin q23ykvdofusbyix has determined that folate concentrations lessthan 4 ng/ml are considered deficient. Iron [Mass/volume] in Serum or PlasmaOrdered By: Jose Solares on 04-23-2024 Iron [Mass/Vol] Iron [Mass/volume] i n Serum or Plasma [facility] Iron [Mass/Vol] 83 ug/dL [facility] Serum or plasma 25-hydroxyca lciferol measurement (mass/volume)Ordered By: Jose Solares on 04-23-2024 25-hydroxyvitamin D2 [Mass/Vol] Serum or plasma 25-hydroxycalciferol measurement (mass/volume) . [facility] Comment on above: This test was develo ped and its performance characteristicsdetermined by [facility]. It has not been cleared or approvedby the Food and Drug Administration. 25-hydroxyvitamin D2 [Mass/Vol] <1.0 ng/mL . [facility] Comment on above: This test was develo ped and its performance characteristicsdetermined by [facility]. It has not been cleared or approvedby the Food and Drug Administration. Serum or plasma 25-hydroxyvi tamin D measurement (mass/volume)Ordered By: Jose Solares on 04-23-2024 25-hydroxyvitamin D [Mass/Vol] Serum or plasma 25-hydroxyvitamin D measurement (mass/volume) . [facility] Comment on above: Reference Range:All Ages: Target levels 30 - 100 25-hydroxyvitamin D [Mass/Vol] 53 ng/mL . [facility] Comment on above: Reference Range:All Ages: Target levels 30 - 100 Serum or plasma calcidiol me asurement (mass/volume)Ordered By: Jose Solares on 04-23-2024 25-hydroxyvitamin D3 [Mass/Vol] Serum or plasma calcidiol measurement (mass/volume) . [facility] Comment on above: This test was develo ped and its performance characteristicsdetermined by [facility]. It has not been cleared or approvedby the Food and Drug Administration.Performed at: [facility] [id number] [place], [place] [id number] Director: Johnnie Jansen MD, Phone: [phone] 25-hydroxyvitamin D3 [Mass/Vol] 52 ng/mL . [facility] Comment on above: This test was develo ped and its performance characteristicsdetermined by [facility]. It has not been cleared or approvedby the Food and Drug Administration.Performed at: [facility] [address] [place], [place] [id number] Director: Johnnie Jansen MD, Phone: [phone] Serum or plasma iron binding capacity measurement (mass/volume)Ordered By: Jose Solares on 04-23-2024 Iron binding capacity [Mass/Vol] Iron binding capacity [Mass/volume] in Serum or Plasma 255-450 [facility] Iron binding capacity [Mass/Vol] 304 ug/dL 255-450 [facility] Serum or plasma iron saturat ion measurement (mass fraction)Ordered By: Jose Solares on 04-23-2024 Iron saturation [Mass fraction] Iron saturation [Mass Fraction] in Serum or Plasma 20-50 [facility] Iron saturation [Mass fraction] 27.3 % 20-50 [facility] Transferrin [Mass/volume] in Serum or PlasmaOrdered By: Jose Sujatha on 04-23-2024 Transferrin [Mass/Vol] Transferrin [Mass /volume] in Serum or Plasma [facility] Transferrin [Mass/Vol] 217 [facility] Vitamin B12 ser/plasOrdered By: Jose Sujatha on 04-23-2024 Cobalamin (Vitamin B12) [Mass/Vol] Vitamin B12 ser/plas 180 [facility] Cobalamin (Vitamin B12) [Mass/Vol] 554 pg/mL [facility] Alanine aminotransferase [En zymatic activity/volume] in Serum or PlasmaOrdered By: Christian Carlos on 04-20-2024 ALT [Catalytic activity/Vol] 30 U/L 752 [facility] Albumin [Mass/volume] in Ser um or Plasma by Bromocresol green (BCG) dye binding methoOrdered By: Christian Carlos on 04-20-2024 Albumin BCG dye [Mass/Vol] 4.1 g/dL 3.5-5.7 [facility] Alkaline phosphatase [Enzyma tic activity/volume] in Serum or PlasmaOrdered By: Christian Carlos on 04-20-2024 ALP [Catalytic activity/Vol] 79 U/L 34-104 [facility] Anisocytosis LM Ql (Bld)Orde red By: Christian Carlos on 04-20-2024 Anisocytosis Ql (Bld) Slight [facility] Anisocytosis Ql (Bld) Anisocytosis [Pres ence] in Blood by Light microscopy [facility] Aspartate aminotransferase [ Enzymatic activity/volume] in Serum or PlasmaOrdered By: Christian Carlos on 04-20-2024 AST [Catalytic activity/Vol] 29 U/L 13-39 [facility] Basophils Auto (Bld) [#/Vol] Ordered By: Christian Carlos on 04-20-2024 Basophils (Bld) [#/Vol] 0.0 10*3/uL 0.0-0.2 [facility] Basophils/100 WBC Auto (Bld) Ordered By: Christian Carlos on 04-20-2024 Basophils/100 WBC (Bld) 0.3 % . [facility] Bilirubin.total [Mass/volume ] in Serum or PlasmaOrdered By: Christian Carlos on 04-20-2024 Bilirubin [Mass/Vol] 1.0 mg/dL 0.3-1.0 [facility] Calcium [Mass/volume] in Ser um or PlasmaOrdered By: Christian Carlos on 04-20-2024 Calcium [Mass/Vol] 8.8 mg/dL 8.6-10.3 [facility] Carbon dioxide, total [Moles /volume] in Serum or PlasmaOrdered By: Christian Carlos on 04-20-2024 CO2 [Moles/Vol] 31.5 mmol/L High 21.0-31.[address] [facility] Chloride [Moles/volume] in S hesham or PlasmaOrdered By: Christian Carlos on 04-20-2024 Chloride [Moles/Vol] 105 mmol/L 98-107 [facility] Comprehensive metabolic pane aline 04-20-2024 Albumin [Mass/Vol] 4.1 g/dL 3.5 - 5.7 g/dL [facility] Albumin/Globulin [Mass ratio] 2.2 {ratio} [facility] ALP [Catalytic activity/Vol] 79 U/L 34 - 104 U/L [facility] ALT [Catalytic activity/Vol] 30 U/L 7 - 52 U/L [facility] Anion gap [Moles/Vol] 9.3 mmol/L 6.0 - 15.0 [facility] AST [Catalytic activity/Vol] 29 U/L 13 - 39 U/L [facility] Bilirubin [Mass/Vol] 1.0 mg/dL 0.3 - 1 .0 mg/dL [facility] Calcium [Mass/Vol] 8.8 mg/dL 8.6 - 10. 3 mg/dL [facility] Chloride [Moles/Vol] 105 mmol/L 98 - 10 7 mmol/L [facility] CO2 [Moles/Vol] 31.5 mmol/L High 21.0 - 31.0 mmol/L [facility] Creatinine (U) [Mass/Vol] 0.90 mg/dL 0.70 - 1.30 mg/dL [facility] CREATININE CLR CALC PHARMACY 91.01 [facility] GFR/1.73 sq M.predicted MDRD (S/P/Bld) [Vol rate/Area] mL/min/{1.73_m2} [facility] Globulin (S) [Mass/Vol] 1.9 g/dL [facility] Glucose [Mass/Vol] 95 mg/dL 70 - 100 mg/dL [facility] Comment on above: Random Glucose Refer ence Range is dependent on time and content of last meal. Glucose of more than 200 mg/dL in a nonstressed, ambulatory subject supports the diagnosis of Diabetes Mellitus. ADA recommended reference range Interpretation and review of laboratory results Abnormal [facility] Potassium [Moles/Vol] 3.8 mmol/L 3.5 - 5.1 mmol/L [facility] Protein [Mass/Vol] 6.0 g/dL Low 6.4 - 8.9 g/dL [facility] Sodium [Moles/Vol] 142 mmol/L 136 - 145 mmol/L [facility] Urea nitrogen [Mass/Vol] 20 mg/dL 7 - 25 mg/dL [facility] Creatinine [Mass/volume] in Serum or PlasmaOrdered By: Christian Carlos on 04-20-2024 Creatinine [Mass/Vol] 0.90 mg/dL 0.70-1.30 [facility] Eosinophils Auto (Bld) [#/Vo l]Ordered By: Christian Carlos on 04-20-2024 Eosinophils (Bld) [#/Vol] 0.2 10*3/uL 0.0-0.45 [facility] Eosinophils/100 WBC Auto (Bl d)Ordered By: Christian Carlos on 04-20-2024 Eosinophils/100 WBC (Bld) 1.4 % . [facility] Erythrocyte distribution wid th Auto (RBC) [Ratio]Ordered By: Christian Carlos on 04-20-2024 Erythrocyte distribution width (RBC) [Ratio] 13.9 % 12.0-14.8 [facility] Globulin Calc (S) [Mass/Vol] Ordered By: Christian Carlos on 04-20-2024 Globulin (S) [Mass/Vol] 1.9 g/dL [facility] Glucose [Mass/volume] in Ser um or PlasmaOrdered By: Christian Carlos on 04-20-2024 Glucose [Mass/Vol] 95 mg/dL 70-100 [facility] Comment on above: ADA recommended refe rence rangeRandom Glucose Reference Range is dependent on time and content of last meal. Glucose of more than 200 mg/dL in a nonstressed, ambulatory subject supports the diagnosis of Diabetes Mellitus. Hematocrit Auto (Bld) [Volum e fraction]Ordered By: Christian Carlos on 04-20-2024 Hematocrit (Bld) [Volume fraction] 43.3 % 38.8-50.0 [facility] Hemoglobin [Mass/volume] in BloodOrdered By: Christian Carlos on 04-20-2024 Hemoglobin (Bld) [Mass/Vol] 14.8 g/dL 13.0-17.0 [facility] LDH Lactate to pyruvate reac tion [Catalytic activity/Vol]on 04-20-2024 LDH LACTATE DEHYDROGENASE 212 U/L 140 - 271 U/L [facility] Lactate dehydrogenase [Enzym atic activity/volume] in Serum or Plasma by Lactate to pyOrdered By: Christian Carlos on 04-20-2024 LDH Lactate to pyruvate reaction [Catalytic activity/Vol] 212 U/L 140-271 [facility] Leukocytes [#/volume] correc christophe for nucleated erythrocytes in Blood by Automated counOrdered By: Christian Carlos on 04-20-2024 WBC corrected for nucl RBC Auto (Bld) [#/Vol] 13.3 10*3/uL High 4.1-10.5 [facility] Lymphocytes Auto (Bld) [#/Vo l]Ordered By: Christian Carlos on 04-20-2024 Lymphocytes (Bld) [#/Vol] 9.9 10*3/uL High 1.00-4.8 [facility] Lymphocytes/100 WBC Auto (Bl d)Ordered By: Christian Carlos on 04-20-2024 Lymphocytes/100 WBC (Bld) 74.8 % . [facility] MCH Auto (RBC) [Entitic mass ]Ordered By: Christian Carlos on 04-20-2024 MCH (RBC) [Entitic mass] 31.2 pg 27.5-35.2 [facility] MCHC Auto (RBC) [Mass/Vol]Or dered By: Christian Carlos on 04-20-2024 MCHC (RBC) [Mass/Vol] 34.2 g/dL 32.5-35.6 [facility] MCV Auto (RBC) [Entitic vol] Ordered By: Christian Carlos on 04-20-2024 MCV (RBC) [Entitic vol] 91.4 fL 83.5-101 [facility] Microcytes LM Ql (Bld)Ordere d By: Christian Carlos on 04-20-2024 Microcytes Ql (Bld) Slight [facility] Microcytes Ql (Bld) Microcytes [Presence ] in Blood by Light microscopy [facility] Monocytes Auto (Bld) [#/Vol] Ordered By: Christian Carlos on 04-20-2024 Monocytes (Bld) [#/Vol] 0.5 10*3/uL 0.0-0.8 [facility] Monocytes/100 WBC Auto (Bld) Ordered By: Christian Carlos on 04-20-2024 Monocytes/100 WBC (Bld) 3.7 % . [facility] Neutrophils Auto (Bld) [#/Vo l]Ordered By: Christian Carlos on 04-20-2024 Neutrophils (Bld) [#/Vol] 2.6 10*3/uL 1.8-7.7 [facility] Neutrophils/100 WBC Auto (Bl d)Ordered By: Christian Carlos on 04-20-2024 Neutrophils/100 WBC (Bld) 19.8 % . [facility] No Panel Informationon 04-20 [facility] No Panel InformationOrdered By: Christian Carlos on 04-20-2024 Estimated GFR (CKD-EPI) > 60.0 mL/Min [facility] Creatinine Clearance (Chem 91.01 [facility] Nucleated erythrocytes [Pres ence] in Blood by Automated countOrdered By: Christian Carlos on 04-20-2024 Nucleated RBC Auto Ql (Bld) 0.3 /100{WBC} 0-0.5 [facility] Platelet adequacy [Presence] in Blood by Light microscopyOrdered By: Christian Carlos on 04-20-2024 Platelets LM Ql (Bld) Decreased Normal [facility] Platelet mean volume Auto (B ld) [Entitic vol]Ordered By: Christian Carlos on 04-20-2024 Platelet mean volume (Bld) [Entitic vol] 8.5 fL 6.6-10.1 [facility] Platelet morphology finding [Identifier] in BloodOrdered By: Christian Carlos on 04-20-2024 Platelet morphology finding Nom (Bld) Normal Normal [facility] Platelets Auto (Bld) [#/Vol] Ordered By: Christian Carlos on 04-20-2024 Platelets (Bld) [#/Vol] 108 10*3/uL Low 150-450 [facility] Potassium [Moles/volume] in Serum or PlasmaOrdered By: Christian Carlos on 04-20-2024 Potassium [Moles/Vol] 3.8 mmol/L 3.5-5.1 [facility] Protein [Mass/volume] in Ser um or PlasmaOrdered By: Christian Carlos on 04-20-2024 Protein [Mass/Vol] 6.0 g/dL Low 6.4-8.9 [facility] RBC Auto (Bld) [#/Vol]Ordere d By: Christian Carlos on 04-20-2024 RBC (Bld) [#/Vol] 4.74 10*6/uL 3.90-5.60 [facility] RBC morphologyOrdered By: Maik Carlos on 04-20-2024 RBC morphology finding Nom (Bld) N/A [facility] Serum or plasma albumin/glob ulin mass ratioOrdered By: Christian Carlos on 04-20-2024 Albumin/Globulin [Mass ratio] 2.2 {ratio} [facility] Serum or plasma anion gap de terminationOrdered By: Christian Carlos on 04-20-2024 Anion gap [Moles/Vol] 9.3 mmol/L 6.0-15.0 [facility] Sodium [Moles/volume] in Ser um or PlasmaOrdered By: Christian Carlos on 04-20-2024 Sodium [Moles/Vol] 142 mmol/L 136-145 [facility] Urea nitrogen [Mass/volume] in Serum or PlasmaOrdered By: Christian Carlos on 04-20-2024 Urea nitrogen [Mass/Vol] 20 mg/dL 03-18 [facility] WBC Auto (Bld) [#/Vol]Ordere d By: Christian Carlos on 04-20-2024 WBC (Bld) [#/Vol] 13.3 10*3/uL High 4.1-10.5 [facility] CNOVon 01-30-2024 CNOV Office Visit (CARDAV ) -- DARIUS VALERA ([id number]) 1960 M Date Time Provider Department 01/30/24 3:00 PM ITA TUTTLE During your visit today, we recorded the following information about you: Pulse Blood pressure Weight Height 66/minute 148/80 92.6 kg 1.829 m Ita Tuttle MD 01/30/2024 2:47 PM Signed [facility] [place] Sissy Zepeda Department of Cardiovascular Medicine SECTION OF REGIONAL CARDIOLOGY OUTPATIENT VISIT DATE January 30, 2024 OUTPATIENT VISIT TYPE ESTABLISHED HISTORY OF PRESENT ILLNESS: Darius Valera is a (an) 63 year old year old male who is here today for follow-up. He had elevated WBCs and was seen by outside commercial art instructor and was told might have CLL Last [...] male here today for follow up from [place], [place]. Has h/o AF s/p ablation, HTN, DMITRY, tachycardia induced CMP, and CHF. On Eliquis, Nifedipine XL, Valsartan/HCTZ added on Doxazosin. Doxazocin increased to 2 mg but has been using only 1 mg daily. Continue to have BP spikes above 150s. Sotalol was discontinued. He followed before with a local dancing master Dr Hooks. Since last visit denies chest [...] deficit. _ (more content not included)... Normal [facility] No Panel InformationOrdered By: Christian Carlos on 01-26-2024 CBC Comment See comment [facility] Comment on above: Slide referred to dorothea thologist for review Smudge cell detectionOrdered By: Christian Carlos on 01-26-2024 Smudge cells LM Ql (Bld) Moderate [facility] Smudge cells [Presence] in B lood by Light microscopyOrdered By: Christian Carlos on 01-26-2024 Smudge cells LM Ql (Bld) Smudge cell detection [facility] Consultation Noteon 01-16-20 Consultation Note [id number]#1.00TIFF [facility] Comment on above: Other Comment: [facility] CNOVon 10-03-2023 CNOV Office Visit (CARDAV ) -- DARIUS VALERA ([id number]) 1960 M Date Time Provider Department 10/03/23 1:30 PM ITA TUTTLE During your visit today, we recorded the following information about you: Pulse Respiration Blood pressure Weight 59/minute 16/minute 136/76 91.2 kg Height 1.829 m Ita Tuttle MD 10/03/2023 1:43 PM Signed [facility] [place] Sissy Zepeda Department of Cardiovascular Medicine SECTION [...] Since last visit denies chest pain, SOB, TYA, palpitations or edema. He brought his BP log book which showed occasional elevated BP at home in the morning.Had some labs at work. Darius Valera is a 62 year old male here today for follow up from [place]. Has h/o AF s/p ablation, HTN, DMITRY, tachycardia induced CMP, and CHF. On Eliquis, Nifedipine XL, Valsartan/HCTZ added on Doxazosin. Doxazocin increased to 2 mg but has been using only 1 mg daily. Continue to have BP spikes above 150s. Sotalol was discontinued. He followed before with a local dancing master Dr Hooks. Since last visit denies chest [...] Date Value (more content not included)... Normal [facility] ECG COMPLETEon 07-31-2023 Atrial Rate 71 BPM [facility] Calculated P Mcfarlan 12 degrees [facility] Calculated R Mcfarlan -15 degrees [facility] Calculated T Mcfarlan 28 degrees [facility] P-R Interval 172 ms [facility] QRS Duration 98 ms [facility] QT Interval 404 ms [facility] QTC Calculation (Bazett) 439 ms [facility] Ventricular Rate 71 BPM Rita pinto [facility] Auth for Release of Medical Recordson 07-10-2023 Auth for Release of Medical Records [id number]#1.00TIFF Normal [facility] Lab Reportson 06-09-2023 Lab Reports [id number]#1.00TIFF Normal [facility] Screenson 06-03-2023 Screens [id number]#1.00TIFF Normal [facility] Ambulatory Visit Summaryon 1 Ambulatory Visit Summary DARIUS VALERA :1960 Visit Date:06/02/2023 Ambulatory Visit Instructions Your Diagnosis Ureteral stone with hydronephrosis Erectile dysfunction Tests Performed Urnls Dip Stick Auto w/o Microscopy POC 30783 Your Care Team Attending Physician - Stevenson LYNCH, Iesha Quarles. This Is Your Medications List amlodipine aspirin (aspirin 81 mg oral tablet) atenolol (atenolol 100 mg Tab) hydrochlorothiazide-lisino pril (hydrochlorothiazide-lisin opril 12.5 mg-20 mg Tab) omega-3 polyunsaturated fatty acids ([place]-3) potassium chloride (Klor-Con) Discharge Vitals Heart Rate [...] Every day Unchanged omega-3 polyunsaturated fatty acids ([place]-3) Unchanged potassium chloride (Klor-Con) Test Results Urnls Dip Stick Auto w/o Microscopy POC 62911 (06/02/2023) Bilirubin Urine Dipstick - Negative Blood Urine Dipstick - Trace-intact Glucose Urine Dipstick - Negative Ketones Urine Dipstick - Negative Leukocytes Urine Dipstick - Negative Nitrite Urine Dipstick - Negative Protein Urine Dipstick - Negative Specific [place] Urine Dipstick - 1.015 Urine Appearance Urine [...] Ureteral stone Ureteral stone with hydronephrosis Normal [facility] Patient Educationon 06-02-20 Patient Education [...] these instructions at home: Medicines ? Take srgd-wda-optttbt and prescription medicines only as told by [...] include cig (more content not included)... Normal [facility] Urology Office/Clinic Noteon 06-02-2023 Urology Office/Clinic Note Chief Complaint follow up to [facility]/consult HPI Staff 62 year old male seen at [facility] consult for Lt. UVJ stone,hydro,renal colic, [...] by PCP Denies medical issues, hx of MD, stroke or DM2. On ASA 81mg Portions of this record may have been created with voice recognition artificial intelligence software, specifically [employer], [employer] and or [employer]. Substitutions may have occurred due to the inherent limitations of voice recognition and artificial intelligence software. 1. Ureteral stone with hydronephrosis (N13.2: Hydronephrosis with renal and ureteral calculous obstruction) Last stone event 10 years ago, denies surgical intervention. Pt presented to [facility] ER 04/14/23 with uncontrolled left flank [...] oxalate intake fro (more content not included)... [facility] Comment on above: Result Comment: Elec tronically Signed By: Iesha Gamino MD\.br\Date and Time Signed: 06/02/23 17:30 EDT\.br\Electronically Co-Signed By: Patience Castellon.br\Date and Time Co-Signed: 06/02/23 16:04 EDT RAD - Ultrasound Reporton RAD - Ultrasound Report [id number]#1.00CD:127 Normal [facility] Consultation Noteon 05-19-20 Consultation Note [id number]#1.00CD:127 Normal [facility] Insurance Correspondence Off iceon 04-16-2023 Insurance Correspondence Office [id number]#1.00CD:127 Normal [facility] Lab Reportson 04-16-2023 Lab Reports [id number]#1.00CD:127 Normal [facility] Consultation Noteon 04-15-20 Consultation Note [id number]#1.00CD:127 Normal [facility] Operative Reporton Operative Report [id number]#1.00CD:127 Normal [facility] RAD - MISCon 04-14-2023 RAD - MISC [id number]#1.00CD:127 Normal [facility] RAD - Ultrasound Reporton RAD - Ultrasound Report [id number]#1.00CD:127 Normal [facility] RAD - CT Reporton 04-12-2023 RAD - CT Report [id number]#1.00CD:127 Normal [facility] Consultation Noteon 02-19-20 Consultation Note [id number]#1.00CD:127 Normal [facility] MRI ANKLE RT WO CONon 2022 MRI [...] JANAY PANDYA Date: 2023-01-22 07:40 Normal [facility] CBC AUTO DIFFon 12-27-2022 BASO # 0.0 103/ul Normal 0.0-0.1 [facility] Comment on above: Performed By: #### C BC #### [facility] [address] [place] [address] Dr. Gautam Van Basophils/100 WBC (Bld) 0.4 % Normal 0.2-2.0 [facility] Comment on above: Performed By: #### C BC #### [facility] [address] [place] [address] Dr. Gautam Van EO # 0.1 103/ul Normal 0.0-0.7 [facility] Comment on above: Performed By: #### C BC #### [facility] [address] [place] [address] Dr. Gautam Van Eosinophils/100 WBC (Bld) 1.3 % Normal 0.9-7.0 [facility] Comment on above: Performed By: #### C BC #### [facility] [address] [place] [address] Dr. Gautam Van Erythrocyte distribution width (RBC) [Ratio] 12.6 % Normal 11.0-15.0 [facility] Comment on above: Performed By: #### C BC #### [facility] [address] [place] [address] Dr. Gautam Van Hematocrit (Bld) [Volume fraction] 47.0 % Normal 42.0-54.0 [facility] Comment on above: Performed By: #### C BC #### [facility] [address] [place] [address] Dr. Gautam Van Hemoglobin (Bld) [Mass/Vol] 16.1 g/dL Normal 14.0-18.0 [facility] Comment on above: Performed By: #### C BC #### [facility] [address] [place] [address] Dr. Gautam Van IG # 0.02 10e3/ul Normal 0.00-0.03 [facility] Comment on above: Performed By: #### C BC #### [facility] [address] [place] [address] Dr. Gautam Van IG % 0.2 % Normal 0.0-0.5 [facility] Comment on above: Performed By: #### C BC #### [facility] [address] [place] [address] Dr. Gautam Van LYMPH # 7.0 103/ul Critically high 1.2-3.8 [facility] Comment on above: Performed By: #### C BC #### [facility] [address] [place] [address] Dr. Gautam Van Lymphocytes/100 WBC (Bld) 64.7 % Critically high 20.5-60.0 [facility] Comment on above: Performed By: #### C BC #### [facility] [address] [place] [address] Dr. Gautam Van MANUAL DIFF REQ NO Normal [facility] Comment on above: Performed By: #### C BC #### [facility] [address] [place] [address] Dr. Gautam Van MCH (RBC) [Entitic mass] 30.7 pg Normal 25.9-34.0 [facility] Comment on above: Performed By: #### C BC #### [facility] [address] [place] [address] Dr. Gautam Van MCHC (RBC) [Mass/Vol] 34.3 g/dL Normal 29.9-35.2 [facility] Comment on above: Performed By: #### C BC #### [facility] [address] [address] [address] Gautam Van MCV (RBC) [Entitic vol] 89.7 fL Normal 80.0-94.0 [facility] Comment on above: Performed By: #### C BC #### [facility] [address] [address] [address] Gautam Van MONO # 0.5 103/ul Normal 0.3-0.8 [facility] Comment on above: Performed By: #### C BC #### [facility] [address] [address] [address] Gautam Van Monocytes/100 WBC (Bld) 4.6 % Normal 1.7-12.0 [facility] Comment on above: Performed By: #### C BC #### [facility] [address] [address] [address] Gautam Van NEUT # 3.1 103/ul Normal 1.4-6.5 [facility] Comment on above: Performed By: #### C BC #### [facility] [address] [address] [address] Gautam Van Neutrophils/100 WBC (Bld) 28.8 % Critically low 43.0-75.0 [facility] Comment on above: Performed By: #### C BC #### [facility] [address] [address] [address] Gautam Van Platelet mean volume (Bld) [Entitic vol] 10.6 fL Normal 9.5-13.5 [facility] Comment on above: Performed By: #### C BC #### [facility] [address] [address] [address] Gautam Van PLT 144 103/ul Critically low 150-450 [facility] Comment on above: Performed By: #### C BC #### [facility] [address] [address] [address] Gautam Van RBC 5.24 106/ul Normal 4.70-6.10 [facility] Comment on above: Performed By: #### C BC #### [facility] [address] [address] [address] Gautam Van WBC 10.8 103/ul Normal 4.0-11.0 [facility] Comment on above: Performed By: #### C BC #### [facility] [address] [address] [address] Gautam Van LIPID PROFILEon 12-27-2022 CHOL-HDL RATIO NORM SEE BELOW Normal [facility] Comment on above: Result Comment: 3.3 - 4.4 LOW RISK 4.4 - 7.1 AVERAGE RISK 7.1 - 11.0 MODERATE RISK >11.0 HIGH RISK Performed By: #### L IPID, T4, TSH, CMP ####[facility] [id number] [address]Dr. Gautam Van Cholesterol [Mass/Vol] 183 mg/dL Normal <=200 [facility] Comment on above: Performed By: #### L IPID, T4, TSH, CMP ####[facility] [address] [address]Dr. Gautam Van Cholesterol in HDL [Mass/Vol] 70 mg/dL Critically high 40-60 [facility] Comment on above: Performed By: #### L IPID, T4, TSH, CMP ####[facility] [address] [address]Dr. Gautam Van Cholesterol in LDL [Mass/Vol] 104.2 mg/dL Normal [facility] Comment on above: Performed By: #### L IPID, T4, TSH, CMP ####[facility] [id number] [address]Dr. Gautam Van Cholesterol.total/Chol esterol in HDL [Mass ratio] 2.6 {ratio} Normal [facility] Comment on above: Performed By: #### L IPID, T4, TSH, CMP ####[facility] [address] [address]Dr. Gautam Van HDL NORMAL > or = 60 mg/dl - LO W CARDIOVASCULAR RISK <40 mg/dl - HIGH CARDIOVASCULAR RISK Normal [facility] Comment on above: Performed By: #### L IPID, T4, TSH, CMP ####[facility] [address] [id number]. Gautam Van LDL CALC NORMAL SEE BELOW Normal [facility] Comment on above: Result Comment: <100 mg/dl OPTIMAL 100 - 129 mg/dl NEAR OR ABOVE OPTIMAL 130 - 159 mg/dl BORDERLINE HIGH 160 - 189 mg/dl HIGH >190 mg/dl VERY HIGH Performed By: #### L IPID, T4, TSH, CMP ####[facility] [address] [address]Dr. Gautam Van Triglyceride [Mass/Vol] 44 mg/dL Normal <=150 [facility] Comment on above: Performed By: #### L IPID, T4, TSH, CMP ####[facility] [address] [address]Dr. Gautam Van VLDL CALC 8.8 mg/dL Normal [facility] Comment on above: Performed By: #### L IPID, T4, TSH, CMP ####[facility] [address] [address]DrCarrie Van PROF 14(COMP METB)on 023 Albumin [Mass/Vol] 4.0 g/dL Normal 3.4-5.0 [facility] Comment on above: Performed By: #### L IPID, T4, TSH, CMP #### [facility] [address] [address] [address] Gautam Van Albumin/Globulin [Mass ratio] 1.2 {ratio} Normal [facility] Comment on above: Performed By: #### L IPID, T4, TSH, CMP #### [facility] [address] [address] [address] Gautam Van ALP [Catalytic activity/Vol] 104 U/L Normal 46-116 [facility] Comment on above: Performed By: #### L IPID, T4, TSH, CMP #### [facility] [address] [address] [address] Gautam Van ALT [Catalytic activity/Vol] 36 U/L Normal 16-63 [facility] Comment on above: Performed By: #### L IPID, T4, TSH, CMP #### [facility] [address] [place] [address] Dr. Gautam Van Anion gap [Moles/Vol] 9.8 mmol/L Normal [facility] Comment on above: Performed By: #### L IPID, T4, TSH, CMP #### [facility] [address] [place] [address] Dr. Gautam Van AST [Catalytic activity/Vol] 22 U/L Normal 15-37 [facility] Comment on above: Performed By: #### L IPID, T4, TSH, CMP #### [facility] [address] [place] [address] Dr. Gautam Van Bilirubin [Mass/Vol] 0.9 mg/dL Normal 0.2-1.0 [facility] Comment on above: Performed By: #### L IPID, T4, TSH, CMP #### [facility] [address] [place] [address] Dr. Gautam Van Calcium [Mass/Vol] 9.1 mg/dL Normal 8.5-10.1 [facility] Comment on above: Performed By: #### L IPID, T4, TSH, CMP #### [facility] [address] [place] [address] Dr. Gautam Van Chloride [Moles/Vol] 103 mmol/L Normal 98-107 [facility] Comment on above: Performed By: #### L IPID, T4, TSH, CMP #### [facility] [address] [place] [address] Dr. Gautam Van CO2 [Moles/Vol] 30.6 mmol/L Normal 21.0-32.0 [facility] Comment on above: Performed By: #### L IPID, T4, TSH, CMP #### [facility] [address] [place] [address] Dr. Gautam Van Creatinine [Mass/Vol] 0.81 mg/dL Normal 0.70-1.30 [facility] Comment on above: Performed By: #### L IPID, T4, TSH, CMP #### [facility] [address] [address] [address] Gautam Van EGFR-AF [place] >60 Normal >=60 [facility] Comment on above: Performed By: #### L IPID, T4, TSH, CMP #### [facility] [address] [address] [address] Gautam Van EGFR-NON AF [place] >60 Normal >=60 [facility] Comment on above: Performed By: #### L IPID, T4, TSH, CMP #### [facility] [address] [address] [address] Gautam Van Globulin (S) [Mass/Vol] 3.3 g/dL Normal [facility] Comment on above: Performed By: #### L IPID, T4, TSH, CMP #### [facility] [address] [place] [address] Dr. Gautam Van Glucose [Mass/Vol] 103 mg/dL Normal 74-106 [facility] Comment on above: Performed By: #### L IPID, T4, TSH, CMP #### [facility] [address] [place] [address] Dr. Gautam Van Potassium [Moles/Vol] 4.4 mmol/L Normal 3.5-5.1 [facility] Comment on above: Performed By: #### L IPID, T4, TSH, CMP #### [facility] [address] [address] [address] Gautam Van Protein [Mass/Vol] 7.3 g/dL Normal 6.4-8.2 [facility] Comment on above: Performed By: #### L IPID, T4, TSH, CMP #### [facility] [address] [address] [address] Gautam Van Sodium [Moles/Vol] 139 mmol/L Normal 136-145 [facility] Comment on above: Performed By: #### L IPID, T4, TSH, CMP #### [facility] [address] [address] [address] Gautam Van Urea nitrogen [Mass/Vol] 16.0 mg/dL Normal 7.0-18.0 [facility] Comment on above: Performed By: #### L IPID, T4, TSH, CMP #### [facility] [address] [address] [address] Gautam Van Urea nitrogen/Creatinine [Mass ratio] 19.8 mg/mg Normal [facility] Comment on above: Performed By: #### L IPID, T4, TSH, CMP #### [facility] [address] [address] [address] Gautam Van T4on 12-27-2022 T4 [Mass/Vol] 9.10 ug/dL Normal 4.50-12.10 [facility] Comment on above: Performed By: #### L IPID, T4, TSH, CMP ####[facility] [address] [address]Dr. Gautam Van TSHon 12-27-2022 TSH 1.043 uIU/mL Normal 0.358-3.74 0 [facility] Comment on above: Performed By: #### L IPID, T4, TSH, CMP #### [facility] [address] [address] FOOT RT WO [...] by: KIRSTIE DODD Date: 2022-11-17 08:57 Normal [facility] Basic metabolic 2000 panelon 10-17-2022 Anion gap [Moles/Vol] 9 mmol/L Normal 9-18 [facility] Comment on above: Order Comment: Speci men Type: BLOOD SPECIMEN Ordering Facility: [facility] Address: [address] [address] Performed By: #### 1 9123-9, 31273-5 #### [facility] CLIA [id number] [address] [place] [address] [place] Calcium [Mass/Vol] 9.4 mg/dL Normal 8.5-10.2 [facility] Comment on above: Order Comment: Speci men Type: BLOOD SPECIMEN Ordering Facility: [facility] Address: [address] [address] Performed By: #### 1 9123-9, 54829-0 #### [facility] CLIA [id number] [address] [place] [address] [place] Chloride [Moles/Vol] 101 mmol/L Normal 97-105 [facility] Comment on above: Order Comment: Speci men Type: BLOOD SPECIMEN Ordering Facility: [facility] Address: [address] [place] [address] Performed By: #### 1 91239, 40218-6 #### [facility] CLIA [id number] [address] [place] [address] [place] CO2 [Moles/Vol] 30 mmol/L Normal 22-30 [facility] Comment on above: Order Comment: Speci men Type: BLOOD SPECIMEN Ordering Facility: [facility] Address: [address] [address] Performed By: #### 1 9123-9, 85792-3 #### [facility] CLIA [id number] [address] [place] [address] [place] Creatinine [Mass/Vol] 1.01 mg/dL Normal 0.73-1.22 [facility] Comment on above: Order Comment: Speci men Type: BLOOD SPECIMEN Ordering Facility: [facility] Address: [address] [place] [id number] Performed By: #### 1 9123-9, 54841-1 #### [facility] CLIA [id number] [place] ESTIMATED GLOMERULAR FILTRATION RATE 84 mL/min/1.73m??? Normal >=60 [facility] Comment on above: Order Comment: Geovanny smiley Type: BLOOD SPECIMEN Ordering Facility: [facility] Address: [address] [address] Result Comment: Kaylee mated Glomerular Filtration Rate [...] actual GFR. Performed By: #### 1 9123-9, 51070-7 #### [facility] CLIA [id number] [address] [place] [address] [place] Glucose [Mass/Vol] 92 mg/dL Normal 74-99 [facility] Comment on above: Order Comment: Geovanny smiley Type: BLOOD SPECIMEN Ordering Facility: [facility] Address: [address] [place] [address] Result Comment: The [place] Diabetes Association (ADA) provides guidance for cutoff [...] Standards of Medical Care in Diabetes 2016, [place] Diabetes Association. Diabetes Care. 2016.39(Suppl 1). Performed By: #### 1 9123-9, 69390-9 #### [facility] CLIA [id number] [address] [place] [address] [place] Potassium [Moles/Vol] 4.4 mmol/L Normal 3.7-5.1 [facility] Comment on above: Order Comment: Speci men Type: BLOOD SPECIMEN Ordering Facility: [facility] Address: [address] [address] Performed By: #### 1 9123-9, 83378-6 #### [facility] CLIA [id number] [address] [place] [address] [place] Sodium [Moles/Vol] 140 mmol/L Normal 136-144 [facility] Comment on above: Order Comment: Speci men Type: BLOOD SPECIMEN Ordering Facility: [facility] Address: [address] [address] Performed By: #### 1 9123-9, 80355-3 #### [facility] CLIA [id number] [address] [place] [address] [place] Urea nitrogen [Mass/Vol] 22 mg/dL Normal 9-24 [facility] Comment on above: Order Comment: Speci men Type: BLOOD SPECIMEN Ordering Facility: [facility] Address: [address] [address] Performed By: #### 1 9123-9, 36112-5 #### [facility] CLIA [id number] [address] [place] [address] [place] Anion gap [Moles/Vol] 9 mmol/L 9 - 18 mmol/L [facility] Calcium [Mass/Vol] 9.4 mg/dL 8.5 - 10. 2 mg/dL [facility] Chloride [Moles/Vol] 101 mmol/L 97 - 10 5 mmol/L [facility] CO2 [Moles/Vol] 30 mmol/L 22 - 30 mmol/L [facility] Creatinine [Mass/Vol] 1.01 mg/dL 0.73 - 1.22 mg/dL [facility] Estimated Glomerular Filtration Rate 84 mL/min/1.73m >=60 mL/min/1.7 3m [facility] Glucose [Mass/Vol] 92 mg/dL 74 - 99 mg/dL [facility] Potassium [Moles/Vol] 4.4 mmol/L 3.7 - 5.1 mmol/L [facility] Sodium [Moles/Vol] 140 mmol/L 136 - 144 mmol/L [facility] Urea nitrogen [Mass/Vol] 22 mg/dL 9 - 24 mg/dL [facility] MAGNESIUM BLDon 10-17-2022 Magnesium [Mass/Vol] 2.1 mg/dL 1.7 - 2 .3 mg/dL [facility] Magnesium SerPl-mCncon 10-17 Magnesium [Mass/Vol] 2.1 mg/dL Normal 1.7-2.3 [facility] Comment on above: Order Comment: Speci men Type: BLOOD SPECIMEN Ordering Facility: [facility] Address: [address] [place] [address] [place] [address] Performed By: #### 1 9123-9, 30111-4 #### [facility] CLIA [id number] [address] [facility] [place] [address] [place] [facility] XR ANKLE RT MIN 3 VIEWSon XR [...] by: DIANE MENEZES Date: 2022-10-09 07:38 Normal [facility] ARRHYTHMIA TRANS TELE MEASUR James 06-10-2022 Measure [place] Interval 179 [facility] MEASURE QRS Interval 60 [facility] MEASURE QT Interval 326 [facility] MEASURE RR INTERVAL MAX 78.86 [facility] Symptoms routine [facility] ARRHYTHMIA TRANS TELE MEASUR Jmaes 05-06-2022 Arrhythmia-Activity tried a couple diffe rent times [facility] Measure [place] Interval 130 [facility] MEASURE QRS Interval 80 [facility] MEASURE QT Interval 332 [facility] MEASURE RR INTERVAL MAX 91.21 [facility] Symptoms routine [facility] ARRHYTHMIA TRANS TELE MEASUR James 04-22-2022 Measure [place] Interval 134 [facility] MEASURE QRS Interval 91 [facility] MEASURE QT Interval 396 [facility] MEASURE RR INTERVAL MAX 81.74 [facility] Symptoms routine [facility] ARRHYTHMIA TRANS TELE MEASUR James 04-04-2022 Measure [place] Interval 201 [facility] MEASURE QRS Interval 84 [facility] MEASURE QT Interval 362 [facility] MEASURE RR INTERVAL MAX 82.87 [facility] Symptoms routine [facility] CREATININE, BLOOD (POC)on Creatinine [Mass/Vol] 0.90 mg/dL 0.7 - 1.4 mg/dL [facility] GFR/1.73 sq M.predicted among non-blacks MDRD (S/P/Bld) [Vol rate/Area] mL/min/{1.73_m2} [facility] CT PULMONARY VEIN W IVCONon 03-22-2022 Radiology Result ACTIONABLE Abnormal [facility] ARRHYTHMIA TRANS TELE MEASUR James 03-19-2022 Measure [place] Interval 164 [facility] MEASURE QRS Interval 97 [facility] MEASURE QT Interval 362 [facility] MEASURE RR INTERVAL MAX 75.85 [facility] Symptoms routine - BP is elev ated, pt. feeling palpitaions when lying down, tired-3-5 day [facility] ARRHYTHMIA TRANS TELE MEASUR James 03-13-2022 Measure [place] Interval 164 [facility] MEASURE QRS Interval 107 [facility] MEASURE QT Interval 450 [facility] MEASURE RR INTERVAL MAX 75.85 [facility] Symptoms routine [facility] ARRHYTHMIA TRANS TELE MEASUR James 03-04-2022 Measure [place] Interval 141 [facility] MEASURE QRS Interval 60 [facility] MEASURE QT Interval 318 [facility] MEASURE RR INTERVAL MAX 77.16 [facility] Symptoms routine [facility] ARRHYTHMIA TRANS TELE MEASUR James 02-18-2022 Measure [place] Interval 130 [facility] MEASURE QRS Interval 60 [facility] MEASURE QT Interval 450 [facility] MEASURE RR INTERVAL MAX 70.82 [facility] Symptoms routine [facility] ARRHYTHMIA TRANS TELE MEASUR James 02-12-2022 Measure [place] Interval 130 [facility] MEASURE QRS Interval 60 [facility] MEASURE QT Interval 450 [facility] MEASURE RR INTERVAL MAX 71.95 [facility] Symptoms routine [facility] ARRHYTHMIA TRANS TELE MEASUR James 02-08-2022 Measure [place] Interval 130 [facility] MEASURE QRS Interval 60 [facility] MEASURE QT Interval 362 [facility] MEASURE RR INTERVAL MAX 72.53 [facility] Symptoms routine [facility] ARRHYTHMIA TRANS TELE MEASUR James 02-04-2022 Measure [place] Interval 130 [facility] MEASURE QRS Interval 60 [facility] MEASURE QT Interval 368 [facility] MEASURE RR INTERVAL MAX 67.8 [facility] Symptoms routine [facility] ARRHYTHMIA TRANS TELE MEASUR James 01-28-2022 Measure [place] Interval 130 [facility] MEASURE QRS Interval 60 [facility] MEASURE QT Interval 382 [facility] MEASURE RR INTERVAL MAX 71.89 [facility] Symptoms routine [facility] ARRHYTHMIA TRANS TELE MEASUR James 01-22-2022 Measure [place] Interval 130 [facility] MEASURE QRS Interval 60 [facility] MEASURE QT Interval 328 [facility] MEASURE RR INTERVAL MAX 77.83 [facility] Symptoms routine [facility] ARRHYTHMIA TRANS TELE MEASUR James 01-18-2022 Measure [place] Interval 130 [facility] MEASURE QRS Interval 60 [facility] MEASURE QT Interval 450 [facility] MEASURE RR INTERVAL MAX 79.56 [facility] Symptoms routine [facility] ARRHYTHMIA TRANS TELE MEASUR James 01-14-2022 Measure [place] Interval 130 [facility] MEASURE QRS Interval 60 [facility] MEASURE QT Interval 348 [facility] MEASURE RR INTERVAL MAX 66.79 [facility] Symptoms Routine [facility] ARRHYTHMIA TRANS TELE MEASUR James 01-07-2022 Measure [place] Interval 173 [facility] MEASURE QRS Interval 76 [facility] MEASURE QT Interval 389 [facility] MEASURE RR INTERVAL MAX 68.15 [facility] Symptoms routine [facility] ARRHYTHMIA TRANS TELE MEASUR James 12-17-2021 Measure [place] Interval 186 [facility] MEASURE QRS Interval 80 [facility] MEASURE QT Interval 369 [facility] MEASURE RR INTERVAL MAX 74.32 [facility] Symptoms routine [facility] ARRHYTHMIA TRANS TELE MEASUR James 12-11-2021 Measure [place] Interval 130 [facility] MEASURE QRS Interval 60 [facility] MEASURE QT Interval 345 [facility] MEASURE RR INTERVAL MAX 73.06 [facility] Symptoms baseline [facility] ARRHYTHMIA TRANS TELE MEASUR James 12-04-2021 Measure [place] Interval 191 [facility] MEASURE QRS Interval 97 [facility] MEASURE QT Interval 450 [facility] MEASURE RR INTERVAL MAX 70.75 [facility] Symptoms baseline [facility] Tobacco Screening.on 022 Tobacco use status [facility] b) No -[facility] [place] [address] DO Work Phone: No Panel Informationon 08-29 27.0\S\27.0 Normal 22.0-30.0 [facility] [place] [address] DO Work Phone: Comment on above: PERFORMED BY:[address] [address] [place], [place] [id number] MEDICAL DIRECTORADEEL LOPES M.D. 99\S\99 Normal 95-114 [facility] [place] [address] DO Work Phone: 3.8\S\3.8 Normal 3.5-5.1 [facility] [place] [address] DO Work Phone: [phone] 00 139\S\139 Normal 136-146 [facility] [address] DO Work Phone: IO EKG Electrocardiogram- 12 Leadon 06-26-2021 IO EKG Electrocardiogram- 12 Lead See Scanned Document [facility] [place] [address] DO Work Phone: Office [...] Instructions By signing my name below, I, Gavin Garcia LPNScribe, attest that this documentation has been prepared [...] 2. I advised him to buy a [employer] monitor to allow us for better assessing [...] Vital Signs Recorded: 26Jun2021 01:28PMRecorded: 26Jun2021 01:06PM [id number], RUE, [id number], LUE, Sitting [id number], R (more content not included)... Normal [facility] Tobacco Screening.on 021 Fall risk assessment a) No falls within the last year -[facility] [place] [address] DO Work Phone: Tobacco use status [facility] b) No -[facility] [place] [address] DO Work Phone: CREATININEon 09-05-2020 Creatinine [Mass/Vol] 0.91 mg/dL Normal 0.50 - 1.30 [facility] Comment on above: Performed By: #### C REAT #### [address] [id number] GFR- AM. >60 Normal >60 [facility] Comment on above: Result Comment: CALC ULATIONS OF ESTIMATED GFR ARE PERFORMED USING THE MDRD STUDY EQUATION FOR THE IDMS-TRACEABLE CREATININE METHODS. CLIN CHEM 2007;53:766-72 Performed By: #### C REAT #### [address] [id number] GFR-NON AM. >60 Normal >60 [facility] Comment on above: Performed By: #### C REAT #### [address] [id number] ELECTROLYTE PANELon 09-05-19 21 Anion gap [Moles/Vol] 12 mmol/L Normal 10 - 20 [facility] Comment on above: Performed By: #### E LECT #### [address] [id number] Chloride [Moles/Vol] 100 mmol/L Normal 98 - 107 [facility] Comment on above: Performed By: #### E LECT #### [address] [id number] HCO3 (Bld) [Moles/Vol] 31 mmol/L Normal 21 - 32 [facility] Comment on above: Performed By: #### E LECT #### [address] [id number] Potassium [Moles/Vol] 3.9 mmol/L Normal 3.5 - 5.3 [facility] Comment on above: Performed By: #### E LECT #### [address] [id number] Sodium [Moles/Vol] 139 mmol/L Normal 136 - 145 [facility] Comment on above: Performed By: #### E LECT #### [address] [id number] UREA NITROGENon 09-05-2020 Urea nitrogen [Mass/Vol] 19 mg/dL Normal 6 - 23 [facility] Comment on above: Performed By: #### U TRIP #### [address] [id number] Vital Signs Date Time Vital Sign Value Performing Clinician Facility 05-13-2025 09:38-0400 Body height 182.88 cm Linda Hemmer [employer]ASEBALL SCOUT-C Work Phone[facility] 05-13-2025 09:38-0400 Body mass index (BMI) [Ratio] 26 kg/m2 Linda Hemmer [employer]BALL [employer]OUT-C Work Phone: [facility] 05-13-2025 09:38-0400 Body temperature 98.2 [degF] Linda Hemmer [employer]BALL [employer]-C Work Phone: [facility] 05-13-2025 09:38-0400 Body weight 87.08 kg Linda Hemmer [employer]BALL [employer]OUT-C Work Phone: [facility] 05-13-2025 09:38-0400 Diastolic blood pressure 78 mm[Hg] Linda Hemmer [employer]BALL [employer]OUT-C Work Phone: [facility] 05-13-2025 09:38-0400 Heart rate 66 /min Linda Hemjhonatan [employer]ALL [employer]OUT-C Work Phone: [facility] 05-13-2025 09:38-0400 Respiratory rate 16 /min Linda Hemjhonatan [employer]ASEBALL SCOUT-C Work Phone: [facility] 05-13-2025 09:38-0400 SaO2% (BldA) [Mass fraction] 100 % Linda Jansen [employer]ALL [employer]OUT-C Work Phone: [facility] 05-13-2025 09:38-0400 Systolic blood pressure 148 mm[Hg] Linda Jansen [employer]BALL [employer]OUT-C Work Phone: [facility] 04-04-2025 14:32-0400 Body height 182.9 cm Bill Tuttle MD Work Phone: [facility] 04-04-2025 14:32-0400 Body mass index (BMI) [Ratio] 26.49 kg/m2 Bill Tuttle MD Work Phone: [facility] 04-04-2025 14:32-0400 Body weight 88.6 kg Bill Tuttle MD Work Phone: [facility] 04-04-2025 14:32-0400 Diastolic blood pressure 88 mm[Hg] Bill Tuttle MD Work Phone: [facility] 04-04-2025 14:32-0400 Heart rate 76 /min Bill Tuttle MD Work Phone: [facility] 04-04-2025 14:32-0400 Systolic blood pressure 132 mm[Hg] Bill Tuttle MD Work Phone: [facility] 03-04-2025 14:53-0400 Body height 182.88 cm Linda Jansen [employer]ASEBALL SCOUT-C Work Phone: [facility] 03-04-2025 14:53-0400 Body mass index (BMI) [Ratio] 26.9 kg/m2 Linda Jansen [employer]BALL [employer]OUT-C Work Phone: [facility] 03-04-2025 14:53-0400 Body temperature 97.7 [degF] Linda Jansen [employer]BALL [employer]-C Work Phone: [facility] 03-04-2025 14:53-0400 Body weight 90.26 kg Linda Jansen [employer]ASEBALL [employer]OUT-C Work Phone: [facility] 03-04-2025 14:53-0400 Diastolic blood pressure 79 mm[Hg] Linda Hemmer [employer]BALL [employer]-C Work Phone: [facility] 03-04-2025 14:53-0400 Heart rate 65 /min Linda Hemmer [employer]BALL [employer]-C Work Phone: [facility] 03-04-2025 14:53-0400 Respiratory rate 18 /min Linda Hemmer [employer]BALL [employer]-C Work Phone: [facility] 03-04-2025 14:53-0400 SaO2% (BldA) [Mass fraction] 98 % Linda Hemmer [employer]ALL [employer]-C Work Phone: [facility] 03-04-2025 14:53-0400 Systolic blood pressure 152 mm[Hg] Linda Hemmer [employer]BALL SCOUT-C Work Phone: [facility] 03-01-2025 09:26-0400 Body height 182.9 cm Linda Hemmer PA Work Phone: [facility] 03-01-2025 09:26-0400 Body mass index (BMI) [Ratio] 27.04 kg/m2 Linda Hemmer PA Work Phone: [facility] 03-01-2025 09:26-0400 Body weight 90.45 kg Linda Hemmer PA Work Phone: [facility] 03-01-2025 09:26-0400 Diastolic blood pressure 84 mm[Hg] Linda Hemmer PA Work Phone: [facility] 03-01-2025 09:26-0400 Heart rate 72 /min Linda Hemmer PA Work Phone: [facility] 03-01-2025 09:26-0400 Respiratory rate 16 /min Linda Hemmer PA Work Phone: [facility] 03-01-2025 09:26-0400 SaO2% (BldA) [Mass fraction] 98 % Linda Hemmer PA Work Phone: [facility] 03-01-2025 09:26-0400 Systolic blood pressure 132 mm[Hg] Linda PIEDRA Work Phone: [facility] 02-19-2025 09:35-0400 Body height 182.88 cm [facility] 02-19-2025 09:35-0400 Body mass index (BMI) [Ratio] 27.3 kg/m2 [facility] 02-19-2025 09:35-0400 Body temperature 98.7 [degF] [facility] 02-19-2025 09:35-0400 Body weight 91.28 kg [facility] 02-19-2025 09:35-0400 Diastolic blood pressure 74 mm[Hg] [facility] 02-19-2025 09:35-0400 Heart rate 73 /min [facility] 02-19-2025 09:35-0400 Respiratory rate 18 /min [facility] 02-19-2025 09:35-0400 SaO2% (BldA) [Mass fraction] 97 % [facility] 02-19-2025 09:35-0400 Systolic blood pressure 124 mm[Hg] [facility] 02-10-2025 10:48-0400 Diastolic blood pressure 91 mm[Hg] [facility] 02-10-2025 10:48-0400 Heart rate 77 /min [facility] 02-10-2025 10:48-0400 Respiratory rate 18 /min [facility] 02-10-2025 10:48-0400 SaO2% (BldA) [Mass fraction] 100 % [facility] 02-10-2025 10:48-0400 Systolic blood pressure 150 mm[Hg] [facility] 02-10-2025 09:16-0400 Body height 182.88 cm [facility] 02-10-2025 09:16-0400 Body weight 90.71 kg [facility] 01-21-2025 15:04-0400 Body height 182.88 cm [facility] 01-21-2025 15:04-0400 Body mass index (BMI) [Ratio] 27.9 kg/m2 [facility] 01-21-2025 15:04-0400 Body temperature 98.2 [degF] [facility] 01-21-2025 15:04-0400 Body weight 93.44 kg [facility] 01-21-2025 15:04-0400 Diastolic blood pressure 89 mm[Hg] [facility] 01-21-2025 15:04-0400 Heart rate 62 /min [facility] 01-21-2025 15:04-0400 Respiratory rate 18 /min [facility] 01-21-2025 15:04-0400 SaO2% (BldA) [Mass fraction] 98 % [facility] 01-21-2025 15:04-0400 Systolic blood pressure 160 mm[Hg] [facility] 12-09-2024 15:34-0400 Body height 182.9 cm Eulalio mywaves Work Phone: [facility] 12-09-2024 15:34-0400 Body mass index (BMI) [Ratio] 28.21 kg/m2 Eulalio mywaves Work Phone: [facility] 12-09-2024 15:34-0400 Body weight 94.35 kg Eulalio Achaogen DO Work Phone: [facility] 09-30-2024 15:52-0500 Body height 182.9 cm Eulalio mywaves Work Phone: [facility] 09-30-2024 15:52-0500 Body mass index (BMI) [Ratio] 28.35 kg/m2 Eulalio Achaogen DO Work Phone: [facility] 09-30-2024 15:52-0500 Body temperature 97.39 [degF] Eulalio Achaogen DO Work Phone: [facility] 09-30-2024 15:52-0500 Body weight 94.8 kg Eulalio mywaves Work Phone: [facility] 09-21-2024 16:43-0500 Body height 182.9 cm Tony Armstrong PA-C Work Phone: [facility] 09-21-2024 16:43-0500 Body mass index (BMI) [Ratio] 27.81 kg/m2 Tony Ebbitt PA-C Work Phone: [facility] 09-21-2024 16:43-0500 Body weight 93 kg Tony Ebbitt PA-C Work Phone: [facility] 09-21-2024 16:43-0500 Diastolic blood pressure 82 mm[Hg] Tony Ebbitt PA-C Work Phone: [facility] 09-21-2024 16:43-0500 Systolic blood pressure 142 mm[Hg] Tony Ebbitt PA-C Work Phone: [facility] 09-15-2024 15:28-0500 Body height 182.9 cm Linda Hemmer PA Work Phone: [facility] 09-15-2024 15:28-0500 Body mass index (BMI) [Ratio] 28.4 kg/m2 Linda Hemmer PA Work Phone: [facility] 09-15-2024 15:28-0500 Body temperature 97.7 [degF] Linda Hemmer PA Work Phone: [facility] 09-15-2024 15:28-0500 Body weight 94.98 kg Linda Hemmer PA Work Phone: [facility] 09-15-2024 15:28-0500 Diastolic blood pressure 78 mm[Hg] Linda Hemmer PA Work Phone: [facility] 09-15-2024 15:28-0500 Heart rate 64 /min Linda Hemmer PA Work Phone: [facility] 09-15-2024 15:28-0500 Respiratory rate 16 /min Linda Hemmer PA Work Phone: [facility] 09-15-2024 15:28-0500 SaO2% (BldA) [Mass fraction] 98 % Linda Hemmer PA Work Phone: [facility] 09-15-2024 15:28-0500 Systolic blood pressure 124 mm[Hg] Linda Hemmer PA Work Phone: [facility] 08-24-2024 11:04-0500 Body height 182.9 cm Eulalio Brown DO Work Phone: [facility] 08-24-2024 11:04-0500 Body mass index (BMI) [Ratio] 27.4 kg/m2 Eulalio Brown DO Work Phone: [facility] 08-24-2024 11:04-0500 Body temperature 97.39 [degF] Eulalio Brown DO Work Phone: [facility] 08-24-2024 11:04-0500 Body weight 91.63 kg Eulalio Brown DO Work Phone: [facility] 08-06-2024 15:24-0500 Body height 182.88 cm Sedrick Ye MD Work Phone: [facility] 08-06-2024 15:24-0500 Body weight 92.98 kg Sedrick Ye MD Work Phone: [facility] 07-27-2024 15:52-0500 Body height 182.9 cm Eulalio Brown DO Work Phone: [facility] 07-27-2024 15:52-0500 Body mass index (BMI) [Ratio] 27.4 kg/m2 Eulalio Brown DO Work Phone: [facility] 07-27-2024 15:52-0500 Body weight 91.63 kg Eulalio Brown DO Work Phone: [facility] 06-15-2024 15:49-0400 Body height 182.9 cm Eulalio Brown DO Work Phone: [facility] 06-15-2024 15:49-0400 Body mass index (BMI) [Ratio] 27.4 kg/m2 Eulalio Brown DO Work Phone: [facility] 06-15-2024 15:49-0400 Body weight 91.63 kg Eulalio Brown DO Work Phone: [facility] 06-11-2024 09:58-0400 Body height 182.9 cm Grace Haque MD Work Phone: [facility] 06-11-2024 09:58-0400 Body mass index (BMI) [Ratio] 27.4 kg/m2 Grace Haque MD Work Phone: [facility] 06-11-2024 09:58-0400 Body weight 91.63 kg Grace Haque MD Work Phone: [facility] 06-10-2024 16:21-0400 Body height 182.9 cm Sedrick Lyons BASEBALL SCOUT Work Phone: [facility] 06-10-2024 16:21-0400 Body mass index (BMI) [Ratio] 27.4 kg/m2 Sedrick Lyons BASEBALL SCOUT Work Phone: [facility] 06-10-2024 16:21-0400 Body weight 91.63 kg Sedrick Lyons BASEBALL SCOUT Work Phone: [facility] 06-10-2024 16:21-0400 Diastolic blood pressure 84 mm[Hg] Sedrick Lyons BASEBALL SCOUT Work Phone: [facility] 06-10-2024 16:21-0400 Heart rate 67 /min Sedrick Lyons BASEBALL SCOUT Work Phone: [facility] 06-10-2024 16:21-0400 SaO2% (BldA) [Mass fraction] 98 % Sedrick Lyons BASEBALL SCOUT Work Phone: [facility] 06-10-2024 16:21-0400 Systolic blood pressure 134 mm[Hg] Sedrick Lyons BASEBALL SCOUT Work Phone: [facility] 05-21-2024 09:21-0400 Body height 182.9 cm Grace Haque MD Work Phone: [facility] 05-21-2024 09:21-0400 Body mass index (BMI) [Ratio] 27.12 kg/m2 Grace Haque MD Work Phone: [facility] 05-21-2024 09:21-0400 Body weight 90.72 kg Grace Haque MD Work Phone: [facility] 05-21-2024 09:21-0400 Diastolic blood pressure 80 mm[Hg] Grace Haque MD Work Phone: [facility] 05-21-2024 09:21-0400 Systolic blood pressure 120 mm[Hg] Grace Haque MD Work Phone: [facility] 04-23-2024 14:57-0400 Body height 182.88 cm MD Sedrick Ye Work Phone: [facility] 04-23-2024 14:57-0400 Body mass index (BMI) [Ratio] 26.7 kg/m2 MD Sedrick Ye Work Phone: [facility] 04-23-2024 14:57-0400 Body temperature 97.3 [degF] MD Sedrick Ye Work Phone: [facility] 04-23-2024 14:57-0400 Body weight 89.35 kg MD Sedrick Ye Work Phone: [facility] 04-23-2024 14:57-0400 Diastolic blood pressure 83 mm[Hg] MD Sedrick Ye Work Phone: [facility] 04-23-2024 14:57-0400 Heart rate 62 /min MD Sedrick Ye Work Phone: [facility] 04-23-2024 14:57-0400 Respiratory rate 16 /min MD Sedrick Ye Work Phone: [facility] 04-23-2024 14:57-0400 SaO2% (BldA) [Mass fraction] 97 % MD Sedrick Ye Work Phone: [facility] 04-23-2024 14:57-0400 Systolic blood pressure 153 mm[Hg] MD Sedrick Ye Work Phone: [facility] 01-30-2024 14:12-0400 Body height 182.9 cm Bill Tuttle MD Work Phone: [facility] 01-30-2024 14:12-0400 Body mass index (BMI) [Ratio] 27.69 kg/m2 Bill Tuttle MD Work Phone: [facility] 01-30-2024 14:12-0400 Body weight 92.6 kg Bill Tuttle MD Work Phone: [facility] 01-30-2024 14:12-0400 Diastolic blood pressure 80 mm[Hg] Bill Tuttle MD Work Phone: [facility] 01-30-2024 14:12-0400 Heart rate 66 /min Bill Tuttle MD Work Phone: [facility] 01-30-2024 14:12-0400 SaO2% (BldA) [Mass fraction] 97 % Bill Tuttle MD Work Phone: [facility] 01-30-2024 14:12-0400 Systolic blood pressure 148 mm[Hg] Bill Tuttle MD Work Phone: [facility] 01-23-2024 14:01-0400 Body height 182.88 cm MD Sedrick Ye Work Phone: [facility] 01-23-2024 14:01-0400 Body mass index (BMI) [Ratio] 27.5 kg/m2 MD Sedrick Ye Work Phone: [facility] 01-23-2024 14:01-0400 Body temperature 98.4 [degF] MD Sedrick Ye Work Phone: [facility] 01-23-2024 14:01-0400 Body weight 92.07 kg MD Sedrick Ye Work Phone: [facility] 01-23-2024 14:01-0400 Diastolic blood pressure 81 mm[Hg] MD Sedrick Ye Work Phone: [facility] 01-23-2024 14:01-0400 Heart rate 71 /min MD Sedrick Ye Work Phone: [facility] 01-23-2024 14:01-0400 Respiratory rate 20 /min MD Sedrick Ye Work Phone: [facility] 01-23-2024 14:010400 SaO2% (BldA) [Mass fraction] 99 % MD Sedrick Ye Work Phone: [facility] 01-23-2024 14:010400 Systolic blood pressure 160 mm[Hg] MD Sedrick Ye Work Phone: [facility] 07-31-2023 13:230500 Body height 182.9 cm Bill Tuttle MD Work Phone: [facility] 07-31-2023 13:230500 Body weight 88.91 kg Bill Tuttle MD Work Phone: [facility] 07-31-2023 [id number]:230500 Diastolic blood pressure 88 mm[Hg] Bill Tuttle MD Work Phone: [facility] 07-31-2023 [id number]:230500 Heart rate 71 /min Bill Tuttle MD Work Phone: [facility] 07-31-2023 13:23-0500 Systolic blood pressure 154 mm[Hg] Bill Tuttle MD Work Phone: [facility] 12-25-2022 14:11-0400 Body height 182.9 cm Bill Tuttle MD Work Phone: [facility] 12-25-2022 14:11-0400 Body weight 90.72 kg Bill Tuttle MD Work Phone: [facility] 12-25-2022 14:11-0400 Diastolic blood pressure 82 mm[Hg] Bill Tuttle MD Work Phone: [facility] 12-25-2022 14:11-0400 Systolic blood pressure 152 mm[Hg] Bill Tuttle MD Work Phone: [facility] 10-17-2022 15:10-0500 Body height 182.9 cm Bill Tuttle MD Work Phone: [facility] 10-17-2022 15:10-0500 Body weight 91.63 kg Bill Tuttle MD Work Phone: [facility] 10-17-2022 15:10-0500 Diastolic blood pressure 88 mm[Hg] Bill Tuttle MD Work Phone: [facility] 10-17-2022 15:10-0500 Heart rate 75 /min Bill Tuttle MD Work Phone: [facility] 10-17-2022 15:10-0500 SaO2% (BldA) [Mass fraction] 98 % Bill Tuttle MD Work Phone: [facility] 10-17-2022 15:10-0500 Systolic blood pressure 148 mm[Hg] Bill Tuttle MD Work Phone: [facility] 09-13-2022 15:12-0500 Body height 182.9 cm Bill Tuttle MD Work Phone: [facility] 09-13-2022 15:12-0500 Body weight 92.53 kg Bill Tuttle MD Work Phone: [facility] 09-13-2022 15:12-0500 Diastolic blood pressure 82 mm[Hg] Bill Tuttle MD Work Phone: [facility] 09-13-2022 15:12-0500 Heart rate 79 /min Bill Tuttle MD Work Phone: [facility] 09-13-2022 15:12-0500 SaO2% (BldA) [Mass fraction] 98 % Bill Tuttle MD Work Phone: [facility] 09-13-2022 15:12-0500 Systolic blood pressure 140 mm[Hg] Bill Tuttle MD Work Phone: [facility] 08-01-2022 13:49-0500 Diastolic blood pressure 95 mm[Hg] Hiren Sena MD Work Phone: [facility] 08-01-2022 13:49-0500 Heart rate 75 /min Hiren Sena MD Work Phone: [facility] 08-01-2022 13:49-0500 SaO2% (BldA) [Mass fraction] 97 % Hiren Sena MD Work Phone: [facility] 08-01-2022 13:49-0500 Systolic blood pressure 149 mm[Hg] Hiren Sena MD Work Phone: [facility] 05-10-2022 15:10-0400 Body weight 89.58 kg Bill Tuttle MD Work Phone: [facility] 05-10-2022 15:10-0400 Diastolic blood pressure 80 mm[Hg] Bill Tuttle MD Work Phone: [facility] 05-10-2022 15:10-0400 Heart rate 72 /min Bill Tuttle MD Work Phone: [facility] 05-10-2022 15:10-0400 SaO2% (BldA) [Mass fraction] 98 % Bill Tuttle MD Work Phone: [facility] 05-10-2022 15:10-0400 Systolic blood pressure 128 mm[Hg] Bill Tuttle MD Work Phone: [facility] 03-28-2022 14:44-0400 Body height 182.9 cm Bill Tuttle MD Work Phone: [facility] 03-28-2022 14:44-0400 Body weight 88.45 kg Bill Tuttle MD Work Phone: [facility] 03-28-2022 14:44-0400 Diastolic blood pressure 82 mm[Hg] Bill Tuttle MD Work Phone: [facility] 03-28-2022 14:44-0400 Heart rate 70 /min Bill Tuttle MD Work Phone: [facility] 03-28-2022 14:44-0400 Respiratory rate 18 /min Bill Tuttle MD Work Phone: [facility] 03-28-2022 14:44-0400 SaO2% (BldA) [Mass fraction] 98 % Bill Tuttle MD Work Phone: [facility] 03-28-2022 14:44-0400 Systolic blood pressure 142 mm[Hg] Bill Tuttle MD Work Phone: [facility] 03-22-2022 10:27-0400 Body height 182.9 cm Barbara Rogers DOVETAIL 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 Work Phone: [facility] 03-22-2022 10:27-0400 Body weight 90.72 kg Barbara Rogers DOVETAIL 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 Work Phone: [facility] 03-22-2022 10:27-0400 Diastolic blood pressure 86 mm[Hg] Barbara Rogers DOVETAIL 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 Work Phone: [facility] 03-22-2022 10:27-0400 Heart rate 56 /min Barbara Rogers DOVETAIL 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 Work Phone: [facility] 03-22-2022 10:27-0400 Systolic blood pressure 147 mm[Hg] Barbara Rogers DOVETAIL 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 Work Phone: [facility] 09-12-2021 14:04-0500 Body height 182.88 cm Sedrick Ye Work Phone: [facility] DO Work Phone: 09-12-2021 14:04-0500 Body mass index (BMI) [Ratio] 27.53 kg/m2 Sedrick Ye Work Phone: [facility] DO Work Phone: 09-12-2021 14:04-0500 Body surface area Derived from formula 2.14 m2 Sedrick Ye Work Phone: [facility] DO Work Phone: 09-12-2021 14:04-0500 Body weight 92.08 kg Sedrick Ye Work Phone: [facility] DO Work Phone: 09-12-2021 14:04-0500 Diastolic blood pressure 84 mm[Hg] Sedrick Khanight Work Phone: [facility] DO Work Phone: 09-12-2021 14:04-0500 Heart rate 95 /min Sedrick Khanight Work Phone: [facility] DO Work Phone: 09-12-2021 14:04-0500 Systolic blood pressure 144 mm[Hg] Sedrick Khanight Work Phone: [facility] DO Work Phone: 06-26-2021 13:28-0400 Diastolic blood pressure 88 mm[Hg] Sedrick Khanight Work Phone: [facility] DO Work Phone: 06-26-2021 13:28-0400 Systolic blood pressure 138 mm[Hg] Sedrick Khanight Work Phone: [facility] DO Work Phone: 06-26-2021 13:06-0400 Body height 182.88 cm Sedrick Khanight Work Phone: [facility] DO Work Phone: 06-26-2021 13:06-0400 Body mass index (BMI) [Ratio] 27.94 kg/m2 Sedrick Ye Work Phone: [facility] DO Work Phone: 06-26-2021 13:06-0400 Body surface area Derived from formula 2.16 m2 Serdick Ye Work Phone: [facility] DO Work Phone: 06-26-2021 13:06-0400 Body weight 93.44 kg Sedrick Ye Work Phone: [facility] DO Work Phone: 06-26-2021 13:06-0400 Diastolic blood pressure 100 mm[Hg] Sedrick Ye Work Phone: [facility] DO Work Phone: 06-26-2021 13:06-0400 Heart rate 92 /min Sedrick Ye Work Phone: [facility] DO Work Phone: 06-26-2021 13:06-0400 Systolic blood pressure 148 mm[Hg] Sedrick Ye Work Phone: [facility] DO Work Phone: Encounters Encounter Date Encounter Type Care Provider Facility Start: 05-16-2025 End: 05-16-2025 Clinisync Result Encounter Generic External Data Provider [facility] External [facility] Unsolicited Start: 05-16-2025 End: 05-16-2025 Clinisync Result Encounter Generic External Data Provider [facility] External Department Unsolicited Start: 05-13-2025 Registered Recurring [facility] Work Phone: Start: 05-13-2025 Non-patient / Non-visit [facility] Work Phone: Start: 05-13-2025 End: 05-13-2025 ambulatory Linda Jansen B[employer]BALL SCOUT-C Work Phone: [facility] Work Phone: Start: 05-13-2025 End: 05-13-2025 Patient encounter procedure Gracie Daily BASEBALL SCOUT-C -[facility] Work Phone: Start: 05-12-2025 End: 05-12-2025 [...] FM Start: 03-04-2025 Registered Recurring Christian Carlos [facility] Work Phone: Start: 03-04-2025 End: 03-04-2025 ambulatory Linda LAZCANOC Work Phone: [facility] Work Phone: Start: 03-04-2025 End: 03-04-2025 Patient encounter procedure Christian Carlos [facility] Work Phone: Start: 03-01-2025 End: 03-01-2025 Bamboo flowsheet Linda PIEDRA Work Phone: [facility] Start: 03-01-2025 End: 03-01-2025 Bamboo flowsheet Linda PIEDRA Work Phone: [facility] Start: 03-01-2025 End: 03-01-2025 Patient encounter status Linda PIEDRA Work Phone: [facility] Work Phone: Start: 03-01-2025 End: 03-01-2025 Periodic preventive med est patient 65yrs& older Linda PIEDRA Work Phone: [facility] Comment on above: Wellness examination (Primary Dx); [...] prostate Start: 03-01-2025 End: 03-01-2025 ambulatory LINDA JANSEN Not Available Start: 02-19-2025 End: 02-19-[address] [facility] Work Phone: Start: 02-19-2025 End: 02-19-2025 Patient encounter procedure Hannah Quarles DOVETAIL MACHINE OPERATOR -[facility] Work Phone: Start: 02-10-2025 End: 02-15-2025 External Result Encounter Christian Carlos DO Work Phone: [facility] External Department Unsolicited Start: 02-10-2025 End: 02-15-2025 External Result Encounter Christian Carlos DO Work Phone: [facility] Unsolicited Start: 02-10-2025 End: 02-10-2025 Admission to same day surgery center Christian Carlos II DO -[facility] [place] Work Phone: Start: 02-10-2025 End: 02-10-2025 ambulatory [facility] Jansen [facility] Start: 01-21-2025 End: 01-21-[address] [facility] Work Phone: Start: 01-21-2025 End: 01-21-[address] [facility] Work Phone: Start: 01-13-2025 End: 01-18-2025 [...] Sedrick Ye MD Work Phone: [facility] Work Phone: Start: 11-30-2024 End: 11-30-2024 Departed Referred Sedrick Ye MD Work Phone: [facility] [address] Work Phone: Start: 11-12-2024 Registered Recurring Sedrick carrillo MD Work Phone: [facility] Work Phone: Start: 11-09-2024 End: 11-09-2024 ambulatory LINDA JANSEN Not Available Start: 10-28-2024 End: 10-28-2024 ambulatory EULALIO IRBY Not Available Start: 09-30-2024 End: 09-30-2024 Patient encounter procedure Eulalio Irby DO Work Phone: [facility] Comment on above: Left hand pain (Prim jose Dx); S/P right knee arthroscopy; Right knee pain, unspecified chronicity Start: 09-30-2024 End: 09-30-2024 ambulatory EULALIO IRBY Not Available Start: 09-30-2024 End: 09-30-2024 ambulatory EULALIO IRBY Not Available Start: 09-27-2024 End: 09-28-2024 Refill Ita Tuttle MD Work Phone: Cardiology Comment on above: Refill Request Start: 09-21-2024 End: 09-21-2024 ambulatory TONY ARMSTRONG Facility:[facility] Start: 09-21-2024 End: 09-21-2024 Patient encounter procedure [...] Start: 08-24-2024 End: 08-24-2024 Bamboo flowsheet Eulalio Irby DO Work Phone: [facility] Start: 08-24-2024 End: 08-24-2024 Bamboo flowsheet Eulalio Irby DO Work Phone: [facility] Start: 08-24-2024 End: 08-24-2024 Patient encounter procedure Eulalio Irby DO Work Phone: [facility] Comment on above: S/P right knee arthr oscopy (Primary Dx) Start: 08-24-2024 End: 08-24-2024 ambulatory EULALIO IRBY Not Available Start: 07-30-2024 End: 07-30-2024 ambulatory EULALIO IRBY Not Available Start: 07-29-2024 End: 07-29-2024 ambulatory EULALIO IRBY Not Available Start: 07-28-2024 End: 07-28-2024 ambulatory EULALIO A MAHAMED Not Available Start: 07-28-2024 End: 07-29-2024 Orders Only Christian Carlos DO Work Phone: [facility] Unsolicited Start: 07-27-2024 End: 07-27-2024 Patient encounter procedure Eulalio Irby DO Work Phone: [facility] Comment on above: Pre-op testing Start: 07-27-2024 End: 07-27-2024 Patient encounter status Eulalio Uribe Mahamed DO Work Phone: [facility] Work Phone: Start: 07-27-2024 End: 07-27-2024 ambulatory EULALIO A MAHAMED Not Available Start: 07-27-2024 End: 07-27-2024 Bamboo flowsheet Eulalio Irby DO Work Phone: [facility] Start: 07-27-2024 End: 07-27-2024 Bamboo flowsheet Eulalio Irby DO Work Phone: [facility] Start: 07-24-2024 End: 07-24-2024 ambulatory NON STAFF Facility[facility] Start: 06-29-2024 End: 06-30-2024 Refill Ita [...] Dx) Start: 06-15-2024 End: 06-15-2024 ambulatory EULALIO Jojo IRBY Not Available Start: 06-15-2024 End: 06-15-2024 [...] Office outpatient visit 25 minutes Sedrick Lyons BASEBALL SCOUT Work Phone: [facility] Comment on above: Strain of thoracic b ack region (Primary Dx); Muscle spasm Start: 06-10-2024 End: 06-10-2024 ambulatory SEDRICK LYONS Not Available Start: 06-10-2024 End: 06-10-2024 Bamboo flowsheet Sedrick Lyons BASEBALL SCOUT Work Phone: [facility] Start: 06-10-2024 End: 06-10-2024 Bamboo flowsheet Sedrick Lyons BASEBALL SCOUT Work Phone: [facility] Start: 05-21-2024 End: 05-21-2024 Office outpatient new 45 minutes Grace Bucio MD Work Phone: [facility] Comment on above: History of colon pro yps (Primary Dx); Screening for malignant neoplasm of colon Start: 05-21-2024 End: 05-21-2024 ambulatory GRACE BUCIO V Not Available Start: 04-23-2024 End: 04-23-2024 ambulatory MD Sedrick Ye Work Phone: [facility] Work Phone: Start: 04-23-2024 End: 04-23-2024 Patient encounter procedure MD Sedrick Ye Work Phone: [facility] Work Phone: Start: 04-23-2024 End: 05-03-2024 External Result Encounter Jose Solares BASEBALL SCOUT Work Phone: [facility] External Department Unsolicited Start: 04-23-2024 End: 05-03-2024 External Result Encounter Jose Solares BASEBALL SCOUT Work Phone: [facility] External Department Unsolicited Start: 04-23-2024 Registered Recurring MD Sedrick hussein Work Phone: [facility] Work Phone: Start: 04-20-2024 End: 04-20-2024 External Result Encounter Christian Guillermo Carlos DO Work Phone: [facility] [...] Start: 01-30-2024 End: 01-30-2024 ambulatory ITA TUTTLE Facility:[facility] Start: 01-23-2024 End: 01-23-2024 ambulatory MD Sedrick Ye Work Phone: [facility] Work Phone: Start: 01-23-2024 End: 01-23-2024 Patient encounter procedure MD Sedrick Ye [facility] [place] [facility] Work Phone: Start: 01-23-2024 Registered Recurring MD Sedrick hussein [facility]: [facility] [place] [facility] Work Phone: Start: 12-31-2023 Refill Ita Tuttle MD Work Phone: Cardiology Comment on above: Refill Request Start: 10-03-2023 End: 10-03-2023 ambulatory ITA TUTTLE Facility:[facility] Start: 09-15-2023 Telephone encounter Ita hameed MD Work Phone: Cardiology Start: 07-31-2023 End: 07-31-2023 Patient encounter procedure Ita Tuttle MD Work Phone: Cardiology Comment on above: Hypertension, unspec ified type (Primary Dx); Aortic root dilatation (HCC) Start: 06-02-2023 End: 06-03-2023 ambulatory Iesha Gamino Facility:[facility] Start: 04-14-2023 End: 04-15-2023 ambulatory Iesha Gamino Facility:[id number] Start: 04-09-2023 End: 04-10-2023 ambulatory SEDRICK YE Facility:[facility] Start: 04-01-2023 Refill Britney Gamboa APRN.AGRICULTURAL SCIENCE PROFESSOR, DNP Work Phone: Cardiology Comment on above: Refill Request Start: 02-17-2023 ambulatory Ita Tuttle MD Work Phone: Cardiology Comment on above: Eliquis and Aspirin question Start: 01-21-2023 End: 01-22-2023 ambulatory DIANE GUAJARDO Facility:[facility] Start: 12-27-2022 End: 12-28-[address] SEDRICK YE . Facility: Start: 12-25-2022 End: 12-25-2022 Patient encounter procedure Ita Tuttle MD Work Phone: Cardiology Comment on above: Hypertension, unspec ified type (Primary Dx) Start: 12-24-2022 End: 12-25-2022 ambulatory DIANE GUAJARDO Facility:[facility] Start: 11-16-2022 End: 11-17-2022 ambulatory SUKHDEEP ZUNIGA Facility:[facility] Start: 10-28-2022 Telephone encounter Hiren willson MD Work Phone: Cardiology Comment on above: Patient Question Start: 10-17-2022 End: 10-18-2022 ambulatory ITA TUTTLE Facility:[facility] Start: 10-17-2022 End: 10-17-2022 Patient encounter procedure Iat Tuttle MD Work Phone: Cardiology Comment on above: Hypertension, unspec ified type (Primary Dx) Start: 10-16-2022 ambulatory Ita Tuttle MD Work Phone: Cardiology Comment on above: Nifedipine Refill Request Start: 10-13-2022 Refill Britney Gamboa APRN.AGRICULTURAL SCIENCE PROFESSOR, DNP Work Phone: Cardiology Comment on above: [...] Arrhythmia TTM Hiren montanez MD Work Phone: [facility] Start: 06-10-2022 Recurring Plan Hiren montanez MD Work Phone: [facility] Start: 05-16-2022 ambulatory Hiren montanez MD Work Phone: Cardiology Comment on above: portable EKG transmi tter machine Start: 05-10-2022 End: 05-10-2022 Patient encounter procedure Ita Tuttle MD Work Phone: Cardiology Comment on above: Tachycardia induced cardiomyopathy (HCC) (Primary Dx) Start: 05-06-2022 Arrhythmia TTM Hiren montanez MD Work Phone: [facility] Start: 05-06-2022 Recurring Plan Hiren montanez MD Work Phone: [facility] Start: 04-22-2022 Arrhythmia TTM Hiren montanez MD Work Phone: [facility] Start: 04-22-2022 Recurring Plan Hiren montanez MD Work Phone: [facility] Start: 04-12-2022 ambulatory Bridget Hudson Pulmonar y Medicine Start: 04-03-2022 Arrhythmia TTM Hiren montanez MD Work Phone: [facility] Start: 04-03-2022 Recurring Plan Hiren montanez MD Work Phone: [facility] Start: 04-02-2022 ambulatory Barbara jameson APRN.AGRICULTURAL SCIENCE PROFESSOR Work Phone: Cardiology Comment on above: update on weaning of f Sotalol EKG transmission eduardo ceballos Start: 04-02-2022 E-mail encounter fro m caregiver Barbara Mccloud APRN.AGRICULTURAL SCIENCE PROFESSOR Work Phone: [facility] Start: 03-29-2022 ambulatory Hiren montanez MD Work Phone: [facility] Start: 03-29-2022 Follow-up encounter Hiren willson MD Work Phone: Cardiology Comment on above: Sotalol follow up Start: 03-28-2022 End: 03-28-2022 Patient encounter procedure Ita Tuttle MD Work Phone: Cardiology Comment on above: Atherosclerosis ([place] Dx); Ascending aorta dilatation (HCC); Tachycardia induced cardiomyopathy (HCC) Start: 03-26-2022 ambulatory Bijal Davis am, PA-C Work Phone: Pulmonary Medicine Start: 03-22-2022 ambulatory Barbara jameson DOVETAIL 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 Work Phone: Cardiology Comment on above: Ct scan results echo results Start: 03-22-2022 E-mail encounter fro m caregiver Barbara Mccloud DOVETAIL 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 Work Phone: [facility] Start: 03-22-2022 End: 03-22-2022 Patient encounter procedure Barbara Mccloud DOVETAIL 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 Work Phone: Cardiology Comment on above: Atrial fibrillation, persistent (HCC) (Primary Dx); Lung nodule; DMITRY (obstructive sleep apnea) Start: 03-22-2022 End: 03-22-2022 Subsequent hospital visit by physician April Li (I-Stat) Work Phone: Radiology Comment on above: Persistent atrial fi brillation (HCC) [I48.19] Start: 03-19-2022 Arrhythmia TTM Hiren montanez MD Work Phone: [facility] Start: 03-19-2022 Recurring Plan Hiren montanez MD Work Phone: [facility] Start: 03-13-2022 Arrhythmia TTM Hiren montanez MD Work Phone: [facility] Start: 03-13-2022 Recurring Plan Hiren montanez MD Work Phone: [facility] Start: 03-04-2022 Arrhythmia TTM Hiren montanez MD Work Phone: [facility] Start: 03-04-2022 Recurring Plan Hiren montanez MD Work Phone: [facility] Start: 02-18-2022 Arrhythmia TTM Hiren montanez MD Work Phone: [facility] Start: 02-18-2022 Recurring Plan Hiren montanez MD Work Phone: [facility] Start: 02-12-2022 Arrhythmia TTM Hiren montanez MD Work Phone: [facility] Start: 02-12-2022 Recurring Plan Hiren montanez MD Work Phone: [facility] Start: 02-08-2022 Arrhythmia TTM Hiren montanez MD Work Phone: [facility] Start: 02-08-2022 Recurring Plan Hiren montanez MD Work Phone: [facility] Start: 02-04-2022 Arrhythmia TTM Hiren montanez MD Work Phone: [facility] Start: 02-04-2022 Recurring Plan Hiren montanez MD Work Phone: [facility] Start: 01-28-2022 Arrhythmia TTM Hiren montanez MD Work Phone: [facility] Start: 01-28-2022 Recurring Plan Hiren montanez MD Work Phone: [facility] Start: 01-22-2022 Arrhythmia TTM Hiren montanez MD Work Phone: [facility] Start: 01-22-2022 Recurring Plan Hiren montanez MD Work Phone: [facility] Start: 01-18-2022 Arrhythmia TTM Hiren montanez MD Work Phone: [facility] Start: 01-18-2022 Recurring Plan Hiren montanez MD Work Phone: [facility] Start: 01-14-2022 Arrhythmia TTM Hiren montanez MD Work Phone: [facility] Start: 01-14-2022 Recurring Plan Hiren montanez MD Work Phone: [facility] Start: 01-09-2022 MC Get Medical Advice Ita Tuttle MD Work Phone: Cardiology Comment on above: Mail order doesn t h ave prescriptions Start: 01-07-2022 Arrhythmia TTM Hiren montanez MD Work Phone: [facility] Start: 01-07-2022 Recurring Plan Hiren montanez MD Work Phone: [facility] Start: 12-21-2021 Refill Ita Tuttle MD Work Phone: Internal Medicine Comment on above: Refill Request Start: 12-20-2021 Refill Hiren montanez MD Work Phone: Cardiology Comment on above: Refill Request Furosemide needed be fore vacation tomorrow Start: 12-17-2021 Arrhythmia TTM Hiren montanez MD Work Phone: [facility] Start: 12-17-2021 Recurring Plan Hiren montanez MD Work Phone: [facility] Start: 12-12-2021 Orders Only Foreign GOMEZ RN.AGRICULTURAL SCIENCE PROFESSOR Work Phone: Cardiology Comment on above: Persistent atrial fi brillation (HCC) Start: 12-11-2021 Arrhythmia TTM Hiren montanez MD Work Phone: [facility] Start: 12-11-2021 Recurring Plan Hiren montanez MD Work Phone: [facility] Start: 12-06-2021 ambulatory Hiren montanez MD Work Phone: Cardiology Comment on above: Resent MATILDE paperwor k Start: 12-05-2021 ambulatory Hiren montanez [...] Arrhythmia TTM Hiren montanez MD Work Phone: [facility] Start: 12-04-2021 Recurring Plan Hiren montanez MD Work Phone: [facility] Start: 11-30-2021 ambulatory Hiren montanez MD Work Phone: Cardiology Comment on above: Patient Education (P ) Start: 10-29-2021 Patient encounter procedure Sedrick Ye Work Phone: [facility] 600 DO Work Phone: Start: 09-18-2021 Telephone encounter Sedrick Vela ht Work Phone: [facility] 250 DO Work Phone: Start: 09-12-2021 Patient encounter procedure Sedrick Ye Work Phone: [facility] 250 DO Work Phone: Start: 08-29-2021 Chart Update Sedrick Ye Work Phone: [facility] 250 DO Work Phone: Start: 06-26-2021 Office outpatient vi sit 25 minutes Sedrick Ye Work Phone: [facility] 250 DO Work Phone: Procedures Date Procedure Procedure Detail Performing Clinician Start: 05-16-2025 ALL CBC WITH AUTO DIFF Generic External Data Provider Start: 05-13-2025 Antibody screen Linda Tariq anali Comment on above: Result Comment: PERF ORMED BY: [place] [id number] PATHOLOGIST VETERINARY ATTENDANT DANIELLE QUINONES M.D. Start: 05-12-2025 Assay of haptoglobin quantitative Christian Li Breanna DO Work Phone: Start: 05-12-2025 US scan of spleen Linda Jansen BASEBALL SCOUT-C Work Phone: Start: 05-09-2025 ALL SED RATE Generic Ex ternal Data Provider Start: 04-04-2025 Ecg routine ecg w/le ast 12 lds i&r only [facility] Provider Start: 02-10-2025 PATHOLOGY REQUEST FO R LAB REINA Christian Li Breanna DO Work Phone: Start: 02-10-2025 COAGULATION PROFILE Keith moise Li Breanna DO Work Phone: Start: 02-10-2025 Comprehensive metabo lic panel Christian Li Breanna DO Work Phone: Start: 02-10-2025 Serum immunofixation Comment on above: No monoclonality det ected. Start: 02-10-2025 Bone marrow sampling Start: 01-13-2025 Comprehensive metabo lic panel Christian Li Breanna DO Work Phone: Start: 01-13-2025 FLOWCYTOMETRY NEOGENOMIC Christian Li Breanna DO Work Phone: Start: 09-30-2024 Arthrocentesis aspir [...] 04-23-2024 VITAMIN D 25 HYDROXY,TOT+D2+D3 Jose Solares BASEBALL SCOUT Work Phone: Start: 04-20-2024 Comprehensive metabo lic panel Christian Carlos DO Work Phone: Start: 07-31-2023 Ecg routine ecg w/le ast 12 lds i&r only [facility] Provider Start: 12-27-[address] SEDRICK HUSSEIN . Comment on above: Performed By: #### P SAS #### [facility] [address] [place] [address] Dr. Gautam Van Start: 08-07-2022 Lipid 1996 [...] contrast ev al cardiac structure&morph 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 APRN.AGRICULTURAL SCIENCE PROFESSOR Work Phone: Start: 03-22-2022 Creatinine [Mass/vol ume] [...] RSV Vaccine (1 - 1-dose 75+ series) [facility] Start: 03-18-2030 Prostate specific an tigen measurement Prostate Cancer Screening Discussion [facility] Start: 10-02-2028 Screening for malign ant neoplasm of colon [facility] Start: 03-18-2028 Diabetes Screening Diabetes Screenin g [facility] Start: 12-28-2027 PROSTATE CANCER SCRE ENING DISCUSSION PROSTATE CANCER SCREENING DISCUSSION [facility] Start: 12-28-2027 Prostate specific an tigen measurement Prostate Cancer Screening Discussion [facility] Start: 08-07-2027 Lipid 1996 panel - S hesham or Plasma Lipid Screening [facility] Start: 08-07-2027 Lipid panel Lipid Screening [facility] Start: 08-07-2027 LIPID SCREEN LIPID SCREEN [facility] Start: 08-07-2027 PROSTATE CANCER SCRE ENING DISCUSSION PROSTATE CANCER SCREENING DISCUSSION [facility] Start: 04-20-2027 Diabetes Screening Diabetes Screenin [facility] Start: 04-01-2027 LIPID SCREEN LIPID SCREEN [facility] Start: 01-01-2027 PROSTATE CANCER SCRE ENING DISCUSSION PROSTATE CANCER SCREENING DISCUSSION [facility] Start: 04-05-2026 End: 04-05-2026 Patient encounter procedure 04/05/2026 8:00 AM EDT Office Visit Cardiology [address] [place] [address] [place] [address] [place] [address] yearly follow up Cardiology Comment on above: yearly follow up Start: 10-17-2025 DIABETES SCREEN DIABETES SCREEN [facility] Start: 10-17-2025 Diabetes Screening Diabetes Screenin [facility] Start: 08-07-2025 DIABETES SCREEN DIABETES SCREEN [facility] Start: 06-13-2025 End: 06-13-2025 Patient encounter procedure 06/13/2025 10:30 AM EDT Office Visit Cardiology [address] [place], [place] [id number] PAF (paroxysmal atrial fibrillation) (HCC) [I48.0] Cardiology Comment on above: PAF (paroxysmal atri al fibrillation) (HCC) [I48.0] Start: 05-13-2025 [facility] Start: 05-12-2025 [facility] Start: 04-25-2025 Influenza vaccination N [facility] Start: 04-04-2025 End: 04-04-2025 Patient encounter procedure 04/04/2025 2:30 PM EDT Office Visit Cardiology [address] [place] [address] [place] [address] [place] [address] Return in about 6 months (around 03/21/2025) for Please schedule appt with Dr. Tuttle in 6 months. Cardiology Comment on above: Return in about 6 mo nths (around 03/21/2025) for Please schedule appt with Dr. Tuttle in 6 months. Start: 04-01-2025 DIABETES SCREEN DIABETES SCREEN [facility] Start: 03-01-2025 End: 03-01-2025 Patient encounter procedure [facility] Comment on above: Arrived Start: 02-10-2025 [facility] Start: 02-08-2025 End: 02-08-2025 Patient encounter procedure 02/08/2025 4:00 PM EDT Office Visit [facility] [address] [facility] [address] [place] [address] Linda Jansen PA [address] [facility] [address] [place] [address] [facility] Start: 12-09-2024 End: 12-09-2024 Patient encounter procedure 12/09/2024 3:45 PM EDT Office Visit [facility] [address] [place] [address] Eulalio Irby DO [address] [place] [address] Arrived [facility] Comment on above: Arrived Start: 12-03-2024 DIABETES SCREEN DIABETES SCREEN [facility] Start: 10-28-2024 End: 10-28-2024 Patient encounter procedure 10/28/2024 3:45 PM EST Office Visit [facility] [address] [place] [id number] Eulalio Irby, DO [address] [place] [address] [facility] Start: 10-22-2024 DIABETES SCREEN DIABETES SCREEN [facility] Start: 09-30-2024 End: 09-30-2024 Patient encounter procedure 09/30/2024 3:30 PM EST Office Visit [facility] [address] [place] [address] Eulalio Irby, DO [address] [place] [address] [facility] Start: 2024 Advance Directive Discussion Advance Directive Discussion [facility] Start: 2024 Pneumococcal Vaccine : 65+ Years (1 of 1 - PCV) Pneumococcal Vaccine: 65+ Years (1 of 1 - PCV) [facility] Start: 08-24-2024 End: 08-24-2024 Patient encounter procedure [facility] Comment on above: Arrived Start: 08-03-2024 End: 07-27-2025 CBC W Auto Differential panel - Blood CBC auto differential Lab Routine Pre-op testing Expected: 08/03/2024 (Approximate), Expires: 07/27/2025 [facility] Work Phone: Comment on above: Expected: 08/03/2024 (Approximate), Expires: 07/27/2025 Start: 08-03-2024 End: 07-27-2025 Comprehensive metabolic 2000 panel - Serum or Plasma Comprehensive metabolic panel Lab Routine Pre-op testing Expected: 08/03/2024 (Approximate), Expires: 07/27/2025 [facility] Comment on above: Expected: 08/03/2024 (Approximate), Expires: 07/27/2025 Start: 07-30-2024 End: 07-30-2024 Professional / ancillary services management 07/30/2024 3:30 PM EST Ancillary Procedure [facility] [address] [facility] [address] [place] [address] [facility] Start: 07-30-2024 End: 07-30-2024 Patient encounter procedure 07/30/2024 3:00 PM EST Office Visit Cardiology [address] [place] [address] [place] [address] [place] [address] 6 month follow up Cardiology Comment on above: 6 month follow up Start: 07-27-2024 End: 07-27-2024 Patient encounter procedure 07/27/2024 3:30 PM EST Office Visit [facility] [address] [place] [address] Eulalio Irby DO [address] [place] [address] Arrived [facility] Comment on above: Arrived Start: 07-27-2024 [...] 06-15-2024 End: 06-15-2024 Patient encounter procedure [facility] Comment on above: Arrived Start: 06-11-2024 End: 06-11-2024 Patient encounter procedure 06/11/2024 12:00 PM EDT Office [facility] [address] [place] [address] [place] [id number] Grace Bucio MD [address] [facility] 150 [place] [address] [facility] Start: 06-10-2024 End: 06-10-2024 Patient encounter procedure 06/10/2024 4:30 PM EDT Office Visit [facility] [address] [place] [address] [place] [address] Sedrick Lyons, BASEBALL SCOUT [address] [place] [address] Arrived [facility] Comment on above: Arrived Start: 06-02-2024 End: 06-02-2024 Patient encounter procedure 06/02/2024 2:30 PM EDT Procedure Visit [facility] Grace Bucio MD [address] [place] [address] [facility] Start: 05-21-2024 End: 05-21-2024 Patient encounter procedure 05/21/2024 12:00 PM EDT Consult [facility] [address] [facility] 150 [place] [address] Grace Bucio MD [address] [place] [address] [address] [facility] Start: 05-04-2024 End: 05-04-2024 Patient encounter procedure 05/04/2024 3:00 PM EDT Consult [facility] [address] [facility] 150 [place] [phone] Grace Bucio MD [address] [facility] 150 [place] [address] [address] [facility] Start: 04-25-2024 Covid-19 Vaccine (1 - 2024-25 season) Covid-19 Vaccine () [facility] Start: 04-25-[address] [facility] Start: 01-30-2024 End: 01-30-2024 Patient encounter procedure 01/30/2024 3:00 PM EDT Office Visit Cardiology [address] [place] [phone] [place] [address] [place], [place] [id number] Return in about 6 months (around 01/30/2024). Cardiology Comment on above: Return in about 6 mo nths (around 01/30/2024). Start: 08-25-2023 Behavioral Health Screening Behavioral Health Screening [facility] Start: 08-25-2023 [facility] Start: 04-25-2023 Covid-19 Vaccine () Covid-19 Vaccine () [facility] Start: 04-25-[address] [facility] Start: 12-20-2022 BP CONTROLLED (<130/80) BP CONTROLLE D (<130/80) [facility] Start: 09-24-2022 BP CONTROLLED (<130/80) BP CONTROLLE D (<130/80) [facility] Start: 08-25-2022 [facility]PRESS[facility] Start: 04-25-[address] [facility] Start: 03-28-2022 End: 05-28-2022 Comprehensive metabolic 2000 panel - Serum or Plasma COMP METABOLIC PANEL Lab Routine Atherosclerosis Expected: 03/28/2022, Expires: 05/28/2022 [facility] Work Phone: Comment on above: Expected: 03/28/2022 , Expires: 05/28/2022 Start: 03-28-2022 End: 05-28-2022 Lipid 1996 panel - Serum or Plasma LIPID PANEL BASIC Lab Routine Atherosclerosis Expected: 03/28/2022, Expires: 05/28/2022 [facility] Work Phone: Comment on above: Expected: 03/28/2022 , Expires: 05/28/2022 Start: 03-13-2022 End: 01-11-2023 Ct heart contrast eval cardiac structure&morph CT PULMONARY VEIN W IVCON Radiology Routine Persistent atrial fibrillation (HCC) Expected: 03/13/2022, Expires: 01/11/2023 [facility] Work Phone: Comment on above: Expected: 03/13/2022 , Expires: 01/11/2023 Start: 12-12-2021 End: 12-12-2022 ECG COMPLETE ECG COMPLETE ECG Routine Persistent atrial fibrillation (HCC) Expected: 12/12/2021, Expires: 12/12/2022 [facility] Work Phone: Comment on above: Expected: 12/12/2021 , Expires: 12/12/2022 Start: 11-08-2021 FUV, Provider: Tera Davison, Status: Pen, Time: 3:10 PM FUV, Provider: Tera Davison, Status: Pen, Time: 3:10 PM [facility] 250 DO Work Phone: Start: 09-12-2021 EKG, Provider: STANISLAV RAMIREZ COMMIS CHEF 1,[id number], Status: Pen, Time: 1:30 PM EKG, Provider: STANISLAV RAMIREZ COMMIS CHEF 1,[id number], Status: Pen, Time: 1:30 PM [facility] 250 DO Work Phone: Start: 08-29-2021 [facility], Provider: Tera Davison, Status: Pen, Time: 10:00 AM [facility] [facility], Provider: Tera Davison, Status: Pen, Time: 10:[address] [facility] Work Phone: Start: 08-25-2021 DEPRESSION ASSESSMENT DEPRESSION [facility] Start: 07-25-2021 [facility], Provider: Tera Davison, Status: Pen, Time: 9:00 AM [facility], Provider: Tera Davison, Status: Pen, Time: 9:00 AM [facility] Heart-Flaquita Hugo DO Work Phone: Start: 2019 RSV Vaccine (1 - 1-d ose 60+ series) RSV Vaccine (1 - 1-dose 60+ series) [facility] Start: 2014 PROSTATE CANCER SCRE ENING DISCUSSION PROSTATE CANCER SCREENING DISCUSSION [facility] Start: 2009 Pneumococcal Vaccine : 50+ (1 of 1 - PCV) Pneumococcal Vaccine: 50+ (1 of 1 - PCV) [facility] Start: 2009 Pneumococcal Vaccine : 65+ Years (1 of 1 - PCV) Pneumococcal Vaccine: 65+ Years (1 of 1 - PCV) [facility] Start: 2009 SHINGRIX VACCINE (1 of 2) READ GRIX VACCINE (1 of 2) [facility] Start: 2004 COLOGUARD (FIT-DNA) COLOGUARD (FIT-D NA) [facility] Start: 2004 Colonoscopy COLONOSCOPY [facility] Start: 2004 COLORECTAL CANCER SCREENING COLORECTAL CANCER SCREENING [facility] Start: [address] COLONOGRAPHY [facility] Start: 2004 FECAL OCCULT BLOOD FECAL OCCULT BLOO D [facility] Start: 2004 Screening for malign ant neoplasm of colon [facility] Start: 2004 SIGMOIDOSCOPY SIGMOIDOSCOPY [facility] Start: 1994 LIPID SCREEN LIPID SCREEN [facility] Start: 1978 Urine microalbumin profile [facility] Start: 1977 ANNUAL PCP TEAM VISUAL MERCHANDISING SPECIALIST ABDIAZIZ DISEASE VISIT ANNUAL PCP TEAM CHRONIC DISEASE VISIT [facility] Start: 1977 Anxiety Screening Anxiety Screening [facility] Start: 1977 BP CONTROLLED (<130/80) BP CONTROLLE D (<130/80) [facility] Start: 1977 Depression Screening Depression Scre ening [facility] Start: 1977 HEPATITIS C SCREENING HEPATITIS C [facility] Start: 1977 Hepatitis C screening Hepatitis C [facility] Start: 1977 HIV SCREENING HIV SCREENING [facility] Start: 1977 HIV screening HIV Screening [facility] Start: 1971 Adult depression screening assessment DEPRESSION SCREENING [facility] Start: 1964 COVID-19 VACCINE (#1) COVID-19 VACCI NE (#1) [facility] Start: 1964 COVID-19 VACCINE (1) COVID-19 VACCIN E (1) [facility] Start: 03-20-1960 COVID-19 VACCINE (#1) COVID-19 VACCI NE (#1) [facility] Start: 1959 Screening for malign ant neoplasm of colon [facility] 25-hydroxyvitamin D3 [Mass/volume] in Serum or Plasma Vitamin D 25 hydroxy Total Lab Routine Wellness examination Muscle cramping Ordered: 03/01/2025 [facility] Comment on above: Ordered: 03/01/2025 Dlxa-3-Xannxjejwotjg [Mass/volume] in Serum or [facility] Bone marrow sampling [facility] CBC W Auto Different ial panel - Blood CBC auto differential Lab Routine 04/20/2024 6:07 AM EDT [facility] Work Phone: CBC W Auto Different ial panel - Blood CBC auto differential Lab Routine 01/13/2025 7:10 AM EDT [facility] Work Phone: CBC W Auto Different ial panel - Blood CBC auto differential Lab Routine 02/10/2025 9:15 AM EDT [facility] Work Phone: CBC W Auto Different ial panel - Blood CBC auto differential Lab Routine 05/12/2025 9:36 AM EDT [facility] Work Phone: Comprehensive metabo lic 1999 panel - Serum or Plasma [facility] Comprehensive metabo lic 1999 panel - Serum or Plasma [facility] Comprehensive metabo lic 1999 panel - Serum or Plasma [facility] Comprehensive metabo lic 1999 panel - Serum or Plasma Comprehensive metabolic panel Lab Routine 05/12/2025 9:36 AM EDT [facility] Work Phone: Comprehensive metabo lic 1999 panel - Serum or Plasma [facility] End: 08-01-2023 ECG COMPLETE ECG COMPLETE ECG Routine Atrial fibrillation, persistent (HCC) 1 Occurrences starting 08/01/2022 until 08/01/2023 [facility] Work Phone: Comment on above: 1 Occurrences starti ng 08/01/2022 until 08/01/2023 ECG COMPLETE ECG COMPLETE ECG 08/01/2022 2:00 PM EST [facility] End: 12-12-2022 Echocardiography ECHO Cardiology Routine Persistent atrial fibrillation (HCC) 1 Occurrences starting 12/12/2021 until 12/12/2022 [facility] Work Phone: Comment on above: 1 Occurrences starti ng 12/12/2021 until 12/12/2022 End: 04-04-2026 Echocardiography ECHO Cardiology Routine PAF (paroxysmal atrial fibrillation) (HCC) 1 Occurrences starting 04/04/2025 until 04/04/2026 [facility] Work Phone: Comment on above: 1 Occurrences starti ng 04/04/2025 until 04/04/2026 Ferritin [Mass/volum e] in Serum or Plasma Ferritin Lab Routine 04/23/2024 3:51 PM EDT [facility] FREE K+L LT CHAINS, QN, S FREE K +L LT CHAINS, QN, S Lab Routine 02/10/2025 9:15 AM EDT [facility] Haptoglobin [Mass/vo lume] in Serum or Plasma [facility] Hemoglobin A1c/Hemoglobin.total in Blood Hemoglobin A1c Lab Routine Muscle cramping Wellness examination IFG (impaired fasting glucose) Ordered: 03/01/2025 [facility] Comment on above: Ordered: 03/01/2025 Iron and Iron bindin g capacity panel - Serum or Plasma Iron and TIBC Lab Routine 04/23/2024 3:51 PM EDT [facility] Work Phone: Iron and Iron bindin g capacity panel - Serum or Plasma Iron and TIBC Lab Routine 05/12/2025 9:36 AM EDT [facility] Lipid 1996 panel - S hesham or Plasma Lipid panel Lab Routine Wellness examination Primary hypertension Ordered: 03/01/2025 [facility] Comment on above: Ordered: 03/01/2025 Patient Education [facility] Bone Marrow Aspiration or Biopsy Know your Meds [facility] Work Phone: Patient referral [facility] Work Phone: Prostate specific Ag [Mass/volume] in Serum or Plasma PSA Lab Routine Wellness examination Screening for malignant neoplasm of prostate Ordered: 03/01/2025 [facility] Comment on above: Ordered: 03/01/2025 Protein electrophore sis, serum Protein electrophoresis, serum Lab Routine 02/10/2025 9:15 AM EDT [facility] Work Phone: TSH W/REFLEX TO FT4 TSH W/REFLEX TO FT4 Lab Routine Muscle cramping Wellness examination Ordered: 03/01/2025 [facility] Work Phone: Comment on above: Ordered: 03/01/2025 VIT. B12/FOLATE PROFILE VIT. B12 /FOLATE PROFILE Lab Routine 04/23/2024 3:51 PM EDT [facility] Immunizations Immunization Date Immunization Notes Care Provider [facility] 07-20-2022 influenza, injectabl e, quadrivalent, preservative free Christian Breanna DO Work Phone: [facility] 07-20-2022 influenza virus vaccine, unspecified formulation Bill Tuttle MD Work Phone: [facility] 06-10-2019 influenza, injectabl e, quadrivalent, preservative free Sedrick Sarabjit Ye Work Phone: [facility] 05-25-2019 influenza, seasonal, injectable Sedrick E Ye Work Phone: [place] [address] DO Work Phone: 06-10-2018 influenza, injectabl e, quadrivalent, preservative free Sedrick E Ye Work Phone: [facility] 01-29-2005 hepatitis B vaccine, adult dosage Sedrick Ye Work Phone: [facility] 08-28-2004 hepatitis B vaccine, adult dosage Sedrick Ye Work Phone: [facility] 07-24-2004 hepatitis B vaccine, adult dosage Sedrick Ye Work Phone: [facility] Payers Date Payer Category Payer Self-pay [id number] 2024 Medicare [id number] 2024 Unknown [id number] 2022 Private Health Insurance [id number]. [id number] 2020 Unknown 2020 Unknown MMO MMO MHS [id number] 2020-Present [phone] [address] [address] [place] [address] Indemnity [id number] [id number]. 7.3.775034.315 2020 Unknown [id number] 2019 Unknown [id number] 1959 Unknown [id number] 2.16.840.1.832899.3.579.2. 593 1959 Unknown [id number] 2.16.840.1.505870.3.579.2. 593 1959 Unknown [id number] 2.16.840.1.817750.3.579.2. 593 1959 Unknown [id number] 2.16.840.1.618649.3.579.2. 593 1959 Unknown [id number] 2.16.840.1.733236.3.579.2. 159 1959 Unknown [id number] 2.16.840.1.728194.3.579.2. 727 1959 Unknown [id number] 2.16.840.1.524833.3.579.2. 727 1959 Unknown [id number] 2.16.840.1.883110.3.579.2. 727 1959 Unknown [id number] 2.16.840.1.928593.3.579.2. 727 1959 Unknown [id number] 2.16.840.1.294756.3.579.2. 1259 1959 Unknown [id number] 2.16.840.1.833852.3.579.2. 1259 1959 Unknown [id number] 2.16.840.1.538866.3.579.2. 9 1959 Unknown [id number] 2.16.840.1.658751.3.579.2. 1259 1959 Unknown [id number] 2.16.840.1.946454.3.579.2. 9 1959 Unknown [id number] 2.16.840.1.465248.3.579.2. 1259 1959 Unknown [id number] 2.16.840.1.425034.3.579.2. 1259 1959 Unknown [id number] 2.16.840.1.199119.3.579.2. 1259 1959 Unknown [id number] 2.16.840.1.093160.3.579.2. 1258 1959 Unknown [id number] 2.16.840.1.707347.3.579.2. 9 1959 Unknown [id number] 2.16.840.1.979913.3.579.2. 1259 1959 Unknown [id number] 2.16.840.1.928782.3.579.2. 1259 1959 Unknown [id number] 2.16.840.1.958340.3.579.2. 1259 1959 Unknown [id number] 2.16.840.1.542528.3.579.2. 1259 1959 Unknown [id number] 2.16.840.1.549387.3.579.2. 9 1959 Unknown [id number] 2.16.840.1.986559.3.579.2. 1259 1959 Unknown [id number] 2.16.840.1.409708.3.579.2. 9 1959 Unknown [id number] 2.16.840.1.781141.3.579.2. 1259 1959 Self-pay [id number] 1959 Worker's Compensation [id number] Unknown [id number] 2.16.840.1.273467.3.579.2. 593 Unknown [id number] 2.16.840.1.440789.3.579.2. 531 Unknown [id number] 2.16.840.1.744821.3.579.2. 531 Unknown [id number] 2.16.840.1.765574.3.579.2. 531 Unknown [id number] 2.16.840.1.973495.3.579.2. 531 Social History Date Type Detail Facility Start: 01-17-2023 End: 08-06-2023 Consumes alcohol occasionally Consumes alcohol occasionally [facility] Comment on above: COFFEE ONCE IN A WHI LE; occasionally; Start: 08-27-2021 End: 08-06-2023 Tobacco smoking status NHIS Never smoked tobacco [facility] Start: 1960 Sex Assigned At Not on file [facility] Start: 11-09-2021 End: 04-05-2022 Exposure to SARS-CoV-2 (event) Not sure [facility] Start: 08-27-2021 End: 08-06-2023 Tobacco use and exposure Smokeless tobacco non-user [facility] Start: 12-03-2021 End: 09-21-2024 Alcohol intake Ex-drinker (finding) [facility] Start: 12-25-2021 End: 01-04-2022 Exposure to SARS-CoV-2 (event) Unable to assess [facility] Work Phone: Start: 01-17-2023 End: 08-06-2023 Tobacco use panel [facility] Start: 06-01-2021 National Score (1-10 0), lower number is lower risk 87 [facility] Start: 1960 Sex Assigned At Male F [facility] Start: 06-09-2024 End: 03-01-2025 Alcoholic beverage intake Current drinker of alcohol (finding) [facility] Within the last year , have you been afraid of your partner or ex-partner? No [facility] Do you belong to any clubs or organizations such as caodaism groups, unions, fraternal or athletic groups, or [...] Only a little [facility] (I/We) worried silvia er (my/our) food would run out before (I/we) got money to buy more. Never true [facility] Start: 08-06-2023 Alcohol Comment Caffeine intak e: 1-2 cups per day [facility] Start: 12-07-2024 End: 01-21-2025 Sex Male (finding) [facility] Functional Status Date Assessment Result Facility 03-01-2025 Patient Health Quest ionnaire 2 item (PHQ-2) [Reported] [facility] 12-04-2021 Are you deaf, or do you have serious difficulty hearing No 12/04/2021 11:08 AM EDJose Fabian RN No [facility] 12-04-2021 Are you blind, or do you have serious difficulty seeing, even when wearing glasses No 12/04/2021 11:08 AM EDT Jose Tidwell RN No [facility] 12-04-2021 Do you have serious difficulty walking or climbing stairs No 12/04/2021 11:08 AM EDT Jose Tidwell RN No [facility] 12-04-2021 Do you have difficul ty dressing or bathing No 12/04/2021 11:08 AM EDT Jose Tidwell RN No [facility] 12-04-2021 Because of a physica l, mental, or emotional condition, do you have difficulty doing errands alone such as visiting a physician's office or shopping No 12/04/2021 11:08 AM EDJose Fabian RN No [facility] Mental Status Date Assessment Result Facility 12-04-2021 Because of a physica l, mental, or emotional condition, do you have serious difficulty concentrating, remembering, or making decisions No 12/04/2021 11:08 AM Jose Teixeira RN No [facility] Clinical Notes 11-30-2021 to 05-06-2025 Note Date & Type Note Facility 05-06-2025 Progress note Note Date/Time May 06, 2025 4:02pm [facility] [place] [address] Cancer Center Note Signed Patient: Darius Valera MR#: [id number] : 1960 Acct:[id number] Age/Sex: 64 / M Type: [facility] Date of Service: Copies to: Linda Jansen PA-C~ Assessment & Plan CHEMO PLAN No Active Chemotherapy History of Present Illness HPI got labs at [facility]. his called us this morning to make [...] No Known Allergies Allergy (Verified 02/19/25 09:38) [facility] Medical History Medical History Lymphocytosis Kidney stone March 2023-removed History of torn meniscus of right knee DMITRY on CPAP Problem List clean-up per request of Phys. [facility] A-fib Problem List clean-up per request of Phys. EHR [facility] Hypertension Problem List clean-up per request of Phys. EHR [facility] Surgical History Surgical History History of surgery on right wrist excision of mass right wrist 07/14/2020 H/O cardiac radiofrequency ablation History of vasectomy Problem List clean-up per request of Phys. EHR [facility] Family History Family History Father [place] disease Father Mother Cancer Endometrial Cancer Grandparent Pancreatic cancer Social History Social History (Updated 02/19/25 @ 09:39 by Jose Garcia [facility]) Smoking status: Never smoker Nicotine containing products [...] Dictated By: Christian Carlos II, DO DD/ [id number] Signed By: <Electronically signed by Christian Carlos II, DO> 05/06/[address] [facility] Work Phone: 1(626) 651-771809-12-2025 Progress [facility] [place] [address] Cancer Center Note Signed Patient: Darius Valera MR#: [id number] : 1960 Acct:[id number] Age/Sex: 64 / M Type: [facility] Date of Service: Copies to: Linda Jansen PA-C~ Assessment & Plan CHEMO PLAN No Active Chemotherapy History of Present Illness HPI got labs at [facility]. his called us this morning to make [...] No Known Allergies Allergy (Verified 02/19/25 09:38) [facility] Medical History Medical History Lymphocytosis Kidney stone March 2023-removed History of torn meniscus of right knee DMITRY on CPAP Problem List clean-up per request of Phys. EHR [facility] A-fib Problem List clean-up per request of Phys. EHR [facility] Hypertension Problem List clean-up per request of Phys. EHR [facility] Surgical History Surgical History History of surgery on right wrist excision of mass right wrist 07/14/2020 H/O cardiac radiofrequency ablation History of vasectomy Problem List clean-up per request of Phys. EHR [facility] Family History Family History Father [place] disease Father Mother Cancer Endometrial Cancer Grandparent Pancreatic cancer Social History Social History (Updated 02/19/25 @ 09:39 by Jose Garcia [facility]) Smoking status: Never smoker Nicotine containing products [...] DO DD/ 1557 Signed By: 05/06/25 1602 [facility]08-11-2025 History of Present illness Narrative * Ita Tuttle MD - 04/04/2025 2:31 PM EDT Images from the original note were not included. [facility] [place] [facility]y Zepeda Department of Cardiovascular Medicine SECTION OF [facility] CARDIOLOGY OUTPATIENT VISIT DATE April 04, 2025 [...] male here today for follow up from [place], [place]. Has h/o AF s/p ablation, HTN, DMITRY, tachycardia induced CMP, and CHF. On Eliquis, Nifedipine XL, Valsartan/HCTZ added on Doxazosin. Doxazocin increased to 2 mg but has been using only 1 mg daily. Continue to have BP spikes above 150s. Sotalol was discontinued. He followed before with a local dancing master Dr Hooks. Since last visit denies chest [...] rare (<1.0%). Isolated VEs were occasional (1.4%, 56308), VE Couplets were rare (<1.0%, 56), and [...] Bystolic - S/p DCC by his local dancing master (Dr Castle) and subsequent ablation by EP (Dr Sena). - Negative outside stress EKG for ischemia 03/22/2020 - Update echo - May use one supplemental Mg OTC daily to try for leg cramps - Most recent renal fx reviewed This note was partially generated using [employer] voice recognition system, and there may be some incorrect words, spellings, and punctuation that were not noted in checking the note before saving. Someelements copied from my previous notes which have been updated as appropriate and reflect current medical decision making from today Bill Tuttle M.D., F.A.C.C CONTACT INFORMATION: Shelbi Tuttle M.D., F.A.CCarrieC. Plumber Gasfitter Clinical printing assistant [facility] of Medicine of [facility] Staff Sap Crm Developer Timothy Diaz [facility] Mail Code [id number] [facility] [address] CC: To use this Smartlink, specify the [...] medications for this visit. documented in this encounterSumma Health07-24-2025 Telephone encounter Note * Telephone Encounter - DOROTHEA Liang - 03/17/2025 1:21 PM EDT My Chart Message. [facility] [id number] Miscellaneous Notes* Telephone Encounter - DOROTHEA Liang - 03/17/2025 1:21 PM EDT My Chart Message. documented in this encounterCapital Region Medical [id number] History of Present illness Narrative* DOROTHEA Liang [...] Lymphocytosis The patient is seeing a medical imaging technician for this condition, treatment is deferred to that specialist. Correspondence from that specialist and any available testing were reviewed during today's visit. Arteriosclerotic vascular disease The patient is seeing a medical imaging technician for this condition, treatment is deferred to [...] H/o with no current complaints. Other thrombophilia ([facility]) The patient is seeing a medical imaging technician for this condition, treatment is deferred to that specialist. Correspondence from that specialist and any available testing were reviewed during today's visit. Thoracic aortic ectasia The patient is seeing a medical imaging technician for this condition, treatment is deferred to that specialist. Correspondence from that specialist and any available testing were reviewed during today's visit. History of colon polyps Will continue to monitor with routine screenings. PONV (postoperative nausea and vomiting) H/o, pt will need to inform anesthesia should he have any additional surgeries. IFG (impaired fasting glucose) - Hemoglobin A1c Will check B0nkkdn upcoming fasting labs. Screening for malignant neoplasm of prostate - PSA Will check PSA with upcoming fasting labs. Follow up for Medicare Wellness Visit. documented in this encounterCapital Region Medical [id number] Evaluation note* Diagnosis Onset Date Resolution Status Admit Date Contact dermatitis acute January 242024 9:18am [facility] Work Phone: 1(958) 585-128905-12-2025 Telephone encounter Note* Telephone Encounter - Fabiola [...] 04/01/2022 0.98 0.73 - 1.22 mg/dL Final [facility]05-12-2025 Miscellaneous Notes* Telephone Encounter - Fabiola Doty [...] - 1.22 mg/dL Final documented in this encounterSumma Health04-17-2025 History of Present illness Narrative* Eulalio Irby, - 12/09/2024 3:45 PM EDT Images from the original note were not included. @ENCDATE@ [facility] is a 64 y.o. 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 Apply ice to the knee [...] note was created using voice recognition through [employer] artificial [employer]. documented in this encounterCapital Region Medical [id number] History of Present illness Narrative* JUS Caraballo [...] the original note were not included. @ENCDATE@ [facility] is a 64 y.o. male who [...] KNEE ARTHROSCOPY W/ DEBRIDEMENT Right 08/13/2024 JAB REVIEW OF SYMPTOMS: The review of systems, [...] hour before bedtime. He can continue taking [place] if needed, but not at the same [...] note was created using voice recognition through [employer]. documented in this encounterCapital Region Medical [id number] Telephone encounter Note* Telephone Encounter - Bria [...] 04/01/2022 0.98 0.73 - 1.22 mg/dL Final [facility]02-04-2025 Miscellaneous Notes* Telephone Encounter - Bria Alvarado [...] - 1.22 mg/dL Final documented in this encounterSumma Health01-28-2025 Instructions* Patient Instructions* oTny Armstrong PA-C - 09/21/2024 4:57 PM EST Please schedule appt with Dr. Tuttle in 6 months documented in this encounterSumma Health01-28-2025 History of Present illness Narrative* Tony Armstrong PA-C - 09/21/2024 4:30 PM EST Images from the original note were not included. [facility] [place] [facility] Department of Cardiovascular Medicine SECTION [...] rare (<1.0%). Isolated VEs were occasional (1.4%, 76811), VE Couplets were rare (<1.0%, 56), and [...] months CONTACT INFORMATION: Tony Armstrong PA-C Cardiology [id number] [facility] [address] Dept: [phone] Dept documented in this encounterSumma Health01-28-2025 NoteHNO ID: [id number] Author: TONY ARMSTRONG PA-C Service: ? Author Type: Physician Plumber Gasfitter Type: Progress Notes Filed: 09/21/2024 17:03 Note Text: [facility] [place] [facility] Department of Cardiovascular Medicine SECTION [...] rare (<1.0%). Isolated VEs were occasional (1.4%, 86221), VE Couplets were rare (<1.0%, 56), and [...] months CONTACT INFORMATION: Tony Armstrong PA-C Cardiology [id number] [facility] [address] Dept: [phone] [facility] History of Present illness Narrative* DOROTHEA Liang [...] No follow-ups on file. documented in this encounterCapital Region Medical [id number] History of Present illness Narrative* Eulalio Irby, [...] note was created using voice recognition through [employer]. documented in this encounterCapital Region Medical [id number] History of Present illness Narrative* Eulalio Irby [...] He also mentions a recent fall in [facility], where he tripped on a sidewalk and landed on his elbow, shoulder, and knee. Following this incident, he noticed swelling in his hands, which has since improved. He went to the urgent care in [place] for evaluation the following day. Xrays of [...] note was created using voice recognition through [employer]. documented in this encounterCapital Region Medical [id number] Telephone encounter Note* Telephone Encounter - Bria [...] 04/01/2022 0.98 0.73 - 1.22 mg/dL Final [facility]11-06-2024 Miscellaneous Notes* Telephone Encounter - Bria Alvarado [...] - 1.22 mg/dL Final documented in this encounterSumma Health11-05-2024 Telephone encounter Note * Telephone Encounter - DOROTHEA Liang - 06/29/2024 4:06 PM EST My Chart message sent. [facility] [id number] Miscellaneous Notes* Telephone Encounter - DOROTHEA Liang - 06/29/2024 4:06 PM EST My Chart message sent. documented in this encounterCapital Region Medical CenterSwjrhiexll86-88-4572 Telephone encounter Note* Telephone Encounter - DOROTHEA Liang - 06/28/2024 10:41 AM EST Message sent through [employer] [facility] [id number] Miscellaneous Notes* Telephone Encounter - DOROTHEA Liang - 06/28/2024 10:41 AM EST Message sent through Va[employer] * Telephone Encounter - Kayla Rose LPN - 06/25/2024 12:28 PM EDT Attempted to call patient multiple times and call will not go through. Xray order has been sent to [facility] so he can go get that done at his convenience and PT will contact him to schedule. * Telephone Encounter - DOROTHEA Liang - 06/25/2024 12:08 PM EDT Ok to send order for x-rays to [facility]. Please let pt know that x-rays [...] he would like to have done at [facility] if you do order. documented in this encounterCapital Region Medical [id number] Telephone encounter Note* Telephone Encounter - Kayla Rose LPN - 06/25/2024 12:28 PM EDT Attempted to call patient multiple times and call will not go through. Xray order has been sent to [facility] so he can go get that done at his convenience and PT will contact him to schedule. [facility] [id number] Telephone encounter Note* Telephone Encounter - DOROTHEA Liang - 06/25/2024 12:08 PM EDT Ok to send order for x-rays to [facility]. Please let pt know that x-rays have been ordered and a PT referral was sent for him also. [facility] CenterDzokksvlyt33-22-0897 Telephone encounter Note* Telephone Encounter - Kayla Rose LPN - 06/25/2024 11:51 AM EDT Pt called stating he saw Sedrick Lyons on 06/10 and was diagnosed with stain of thoracic spine and muscle spasm, rx'd Prednisone, Tizanidine. States it is not really helping and was ?'ing if you could order either an x-ray or PT. X-ray he would like to have done at [facility] if you do order. [facility] CenterEhapmhkhhg01-45-8001 History of Present illness Narrative* Eulalio Irby DO - 06/15/2024 3:15 PM EDT Images from the original note were not included. @ESADATE@ Darius Chan Rl is a 63 y.o. male who [...] MRI of the right knee performed at [facility] on 03/13/2019; Tear in the body and [...] note was created using voice recognition through Mingyian. documented in this encounterCapital Region Medical CenterQkdhfsdyoo88-28-7858 History of Present illness Narrative* Sedrick Lyons, BASEBALL SCOUT - 06/10/2024 4:30 PM EDT Images from [...] No follow-ups on file. documented in this encounterCapital Region Medical [id number] Instructions* Patient Instructions* Sedrick Lyons NP - 06/10/2024 4:30 PM EDT Added prednisone and tizanidine. documented in this encounterCapital Region Medical [id number] History of Present illness Narrative* Grace Haque [...] Procedure Laterality Date COLONOSCOPY 2019 COLONOSCOPY 2014 REVIEW OF SYMPTOMS: Review of Systems Constitutional: [...] colonoscopy in 10 years. documented in this encounterCapital Region Medical CenterCeucbufnww03-93-8422 NoteHNO ID: [id number] Author: BLIL TUTTLE MD Service: ? Author Type: Physician Type: Progress Notes Filed: 01/30/2024 14:47 Note Text: [facility] [place] Sissy Zepeda Department of Cardiovascular Medicine SECTION OF REGIONAL CARDIOLOGY OUTPATIENT VISIT DATE January 30, 2024 OUTPATIENT VISIT TYPE ESTABLISHED HISTORY OF PRESENT ILLNESS: Darius Valera is a (an) 63 year old year old male who is here today for follow-up. He had elevated WBCs and was seen by outside commercial art instructor and was told might have CLL Last [...] male here today for follow up from [place], [place]. Has h/o AF s/p ablation, HTN, DMITRY, tachycardia induced CMP, and CHF. On Eliquis, Nifedipine XL, Valsartan/HCTZ added on Doxazosin. Doxazocin increased to 2 mg but has been using only 1 mg daily. Continue to have BP spikes above 150s. Sotalol was discontinued. He followed before with a local dancing master Dr Hooks. Since last visit denies chest [...] Value 04/01/2022 85 No (more content not included)...[facility]06-07-2024 History of Present illness Narrative* Ita Tuttle MD - 01/30/2024 2:08 PM EDT Images from the original note were not included. [facility] [place] Sissy Zepeda Department of Cardiovascular Medicine SECTION OF REGIONAL CARDIOLOGY OUTPATIENT VISIT DATE January 30, 2024 OUTPATIENT VISIT TYPE ESTABLISHED HISTORY OF PRESENT ILLNESS: Darius Valera is a (an) 63 year old year old male who is here today for follow- up. He had elevated WBCs and was seen by outside commercial art instructor and was told might have CLL Last [...] male here today for follow up from [place], [place]. Has h/o AF s/p ablation, HTN, DMITRY, tachycardia induced CMP, and CHF. On Eliquis, Nifedipine XL, Valsartan/HCTZ added on Doxazosin. Doxazocin increased to 2 mg but has been using only 1 mg daily. Continue to have BP spikes above 150s. Sotalol was discontinued. He followed before with a local dancing master Dr Hooks. Since last visit denies chest [...] rare (<1.0%). Isolated VEs were occasional (1.4%, 60104), VE Couplets were rare (<1.0%, 56), and [...] needed - S/p DCC by his local dancing master (Dr Castle) and subsequent ablation by EP (Dr Sena). - Negative outside stress EKG for ischemia 03/22/2020 - Refill authorized - Most recent renal fx reviewed This note was partially generated using [employer] voice recognition system, and there may be some incorrect words, spellings, and punctuation that were not noted in checking the note before saving. Someelements copied from my previous notes which have been updated as appropriate and reflect current medical decision making from today Bill Tuttle M.D., Miguel CONTACT INFORMATION: Shelbi Tuttle M.D., Miguel. Plumber Gasfitter Clinical printing assistant [facility] Staff Sap Crm Developer Timothy WhippleCarrie H[facility] Mail Code AVW2-1 [id number] [facility] [address] CC: To use this Smartlink, specify the provider ID whose address you want to display, e.g., .PROVADDR[1 (where 1 is the provider ID). documented in this encounterSumma Health05-08-2024 Telephone encounter Note * Telephone Encounter - [...] 04/01/2022 0.98 0.73 - 1.22 mg/dL Final [facility]05-08-2024 Miscellaneous Notes* Telephone Encounter - Fabiola Doty [...] - 1.22 mg/dL Final documented in this encounterSumma Health02-09-2024 NoteHNO ID: [id number] Author: BILL TUTTLE MD Service: ? Author Type: Physician Type: Progress Notes Filed: 10/03/2023 13:43 Note Text: [facility] [place] Sissy Zepeda Department of Cardiovascular Medicine SECTION [...] male here today for follow up from [place], [place]. Has h/o AF s/p ablation, HTN, DMITRY, tachycardia induced CMP, and CHF. On Eliquis, Nifedipine XL, Valsartan/HCTZ added on Doxazosin. Doxazocin increased to 2 mg but has been using only 1 mg daily. Continue to have BP spikes above 150s. Sotalol was discontinued. He followed before with a local dancing master Dr Hooks. Since last visit denies chest [...] (k/uL) Date Value 0 (more content not included)...[facility]01-22-2024 Miscellaneous Notes* Telephone Encounter - Uyen Martinez RN - 09/15/2023 10:37 AM EST Pt sent GradFly message regarding below. * Telephone Encounter - [...] Thanks Shelbi Tuttle MD documented in this encounterSumma Health12-07-2023 History of Present illness Narrative* Iat Tuttle MD - 07/31/2023 12:48 PM EST Images from the original note were not included. [facility] [place] Sissy Zepeda Department of Cardiovascular Medicine SECTION [...] male here today for follow up from [place]. Has h/o AF s/p ablation, HTN, DMITRY, tachycardia induced CMP, and CHF. On Eliquis, Nifedipine XL, Valsartan/HCTZ added on Doxazosin. Doxazocin increased to 2 mg but has been using only 1 mg daily. Continue to have BP spikes above 150s. Sotalol was discontinued. He followed before with a local dancing master Dr Hooks. Since last visit denies chest [...] size - S/p DCC by his local dancing master (Dr Castle) and subsequent ablation by EP (Dr Sena). - Negative outside stress EKG for ischemia 03/22/2020 - Advised to establish with a PCP at [facility] This note was partially generated using [employer] voice recognition system, and there may be some incorrect words, spellings, and punctuation that were not noted in checking the note before saving. Someelements copied from my previous notes which have been updated as appropriate and reflect current medical decision making from today Bill Tuttle M.D., F.ShelbiCCarrieC CONTACT INFORMATION: Shelbi Tuttle M.D., Miguel. Plumber Gasfitter Clinical printing assistant [facility] Staff Sap Crm Developer Timothy [facility] Mail Code AVW2-1 [id number] [facility] [address] CC: To use this Smartlink, specify the provider ID whose address you want to display, e.g., .PROVADDR[1 (where 1 is the provider ID). documented in this encounterSumma Health08-08-2023 Miscellaneous Notes* Telephone Encounter - Griselda Jones APRN.CNP - 04/01/2023 2:52 PM EDT The following approved medication requests have been transmitted electronically. Requested Prescriptions Signed Prescriptions Disp Refills Valsartan-hydroCHLOROthiazide 320-25 mg per tablet 90 tablet 3 Sig: TAKE ONE TABLET BY MOUTH DAILY Authorizing Provider: ITA TUTTLE Ordering User: GRISELDA JONES APRN.AGRICULTURAL SCIENCE PROFESSOR * Telephone Encounter - Virgie Pretty MA [...] - 1.22 mg/dL Final documented in this encounterSumma Health05-03-2023 History of Present illness Narrative* Ita Tuttle MD - 12/25/2022 2:00 PM EDT Images from the original note were not included. [facility] [place] Sissy Zepeda Department of Cardiovascular Medicine SECTION OF REGIONAL CARDIOLOGY OUTPATIENT VISIT DATE December 25, 2022 OUTPATIENT VISIT TYPE Established HISTORY OF PRESENT ILLNESS: Darius Valera is a 62 year old male here today for follow up from [place]. Has h/o AF s/p ablation, HTN, DMITRY, tachycardia induced CMP, and CHF. On Eliquis, Nifedipine XL, Valsartan/HCTZ added on Doxazosin. Doxazocin increased to 2 mg but has been using only 1 mg daily. Continue to have BP spikes above 150s. Sotalol was discontinued. He followed before with a local dancing master Dr Hooks. Since last visit denies chest [...] daily - S/p DCC by his local dancing master (Dr Castle) and subsequent ablation by EP [...] needed. This note was partially generated using [employer] voice recognition system, and there may be some incorrect words, spellings, and punctuation that were not noted in checking the note before saving. Bill Tuttle M.D., F.A.C.C CONTACT INFORMATION: Bill Tuttle M.D., F.A.C.C. Staff Sap Crm Developer Timothy [facility] Mail Code AVW2-1 [id number] [facility] [address] CC: To use this Smartlink, specify the provider ID whose address you want to display, e.g., .PROVADDR[1 (where 1 is the provider ID). documented in this encounterSumma Health05-02-2023 NotePROCEDURE: XR FOOT RT MIN 3 VIEWS, [...] Electronically authenticated by: BRIA PATEL Date: 2022-12-24 12:07[facility]05-02-2023 NotePROCEDURE: XR FOOT RT MIN 3 VIEWS, [...] Electronically authenticated by: BRIA PATEL Date: 2022-12-24 12:07[facility]03-08-2023 Miscellaneous Notes* Telephone Encounter - Lila Alvarenga - 10/30/2022 3:09 PM EST Darius rescheduled for Main [place] in March with Dr. Sena. 10/30/2022 * [...] only Please advise spouse documented in this encounterSumma Health02-23-2023 History of Present illness Narrative* Ita Tuttle MD - 10/17/2022 3:30 PM EST Images from the original note were not included. [facility] [place] Sissy Zepeda Department of Cardiovascular Medicine SECTION OF REGIONAL CARDIOLOGY OUTPATIENT VISIT DATE October 17, 2022 OUTPATIENT VISIT TYPE Established HISTORY OF PRESENT ILLNESS: Darius Valera is a 62 year old male here today for follow up from [place], [place]. Has h/o AF s/p ablation, HTN, DMITRY, tachycardia induced CMP, and CHF. On Eliquis, Nifedipine XL, Valsartan/HCTZ added on Doxazosin. Sotalol was discontinued. He followedbefore with a local dancing master Dr Hooks. Since last visit denies chest [...] MG - S/p DCC by his local dancing master (Dr Castle) and subsequent ablation by EP [...] needed. This note was partially generated using [employer] voice recognition system, and there may be some incorrect words, spellings, and punctuation that were not noted in checking the note before saving. Bill Ttutle M.D., F.A.C.C CONTACT INFORMATION: Bill Tuttle M.D., F.A.C.C. Staff Sap Crm Developer Timothy Diaz [facility] Mail Code AVW2-1 [id number] [facility] [address] CC: To use this Smartlink, specify the provider ID whose address you want to display, e.g., .PROVADDR[1 (where 1 is the provider ID). documented in this encounterSumma Health02-23-2023 Miscellaneous Notes* Telephone Encounter - Manisha Pinzon [...] Busby - 10/16/2022 4:19 PM EST Local [facility] [place] 10 day supply Patient has not received it through mail yet, Today was his last pill, is it possible to do a shortterm refill so he does not miss a dose. Has an appointment tomorrow with us but is requesting to have filled tonight. documented in this encounterSumma Health02-20-2023 Miscellaneous Notes* Telephone Encounter - Marquez Giang [...] - 1.4 mg/dL Final documented in this encounterSumma Health02-13-2023 Miscellaneous Notes* Telephone Encounter - Virgie Pretty [...] - 1.4 mg/dL Final documented in this encounterSumma Health01-20-2023 History of Present illness Narrative* Ita Tuttle MD - 09/13/2022 3:30 PM EST Images from the original note were not included. [facility] [place] Sissy Zepeda Department of Cardiovascular Medicine SECTION OF REGIONAL CARDIOLOGY OUTPATIENT VISIT DATE September 13, 2022 OUTPATIENT VISIT TYPE Established HISTORY OF PRESENT ILLNESS: Darius Valera is a 61 year old male here today for follow up from [place]. Has h/o AF s/p ablation, HTN, DMITRY, tachycardia induced CMP, and CHF. On Eliquis, Nifedipine XL, Valsartan/HCTZ. Sotalol was discontinued. He followed before with a local dancing master Dr Hooks. Since last visit denies chest [...] or gallop. No parasternal heave or thrill. [place] not displaced. LUNGS: clear to auscultation, no [...] daily - S/p DCC by his local dancing master (Dr Castle) and subsequent ablation by EP [...] needed. This note was partially generated using [employer] voice recognition system, and there may be some incorrect words, spellings, and punctuation that were not noted in checking the note before saving. Bill Tuttle M.D., Moy.BernardC CONTACT INFORMATION: Bill Tuttle M.D., PierreC. Staff Sap Crm Developer Timothy Diaz [facility] Mail Code AVW2-1 [id number] [facility] [address] CC: To use this Smartlink, specify the provider ID whose address you want to display, e.g., .PROVADDR[1 (where 1 is the provider ID). documented in this encounterSumma Health12-09-2022 Miscellaneous Notes* Telephone Encounter - Shani Abdul [...] a day. Thanks TD documented in this encounterSumma Health12-09-2022 Miscellaneous Notes* Telephone Encounter - Marissa Guzman [...] a day. Thanks TD documented in this encounterSumma Health12-08-2022 History of Present illness Narrative* Hiren Sena [...] BP readings, which have frequently been in [id number]. ACTIVE PROBLEM LIST Atrial Fibrillation, Persistent (Hcc) [...] phrases that may beinappropriate. documented in this encounterSumma Health09-16-2022 History of Present illness Narrative* Ita Tuttle MD - 05/10/2022 3:03 PM EDT Images from the original note were not included. [facility] [place] Sissy Zepeda Department of Cardiovascular Medicine SECTION OF REGIONAL CARDIOLOGY OUTPATIENT VISIT DATE May 10, 2022 OUTPATIENT VISIT TYPE Established HISTORY OF PRESENT ILLNESS: Darius Valera is a 61 year old male here today for follow up from [place]. Has h/o AF s/p ablation, HTN, DMITRY, tachycardia induced CMP, and CHF. On Eliquis, Nifedipine XL, Valsartan/HCTZ, Lasix, Potassium chloride. Sotalol was discontinued. He followed before with a local dancing master Dr Hooks. He reported that he was [...] or gallop. No parasternal heave or thrill. Phoenix not displaced. LUNGS: clear to auscultation, no [...] < 200 ASSESSMENT/PLAN: 1. AF s/p Ablation 4/11/[address] Sena, HTN, DMITRY, h/o tachycardia [...] Nifedipine - S/p DCC by his local dancing master (Dr Castle) and subsequent ablation by EP [...] needed. This note was partially generated using [employer] voice recognition system, and there may be some incorrect words, spellings, and punctuation that were not noted in checking the note before saving. Bill Tuttle M.D., F.A.C.C CONTACT INFORMATION: Bill Tuttle M.D., F.A.C.C. Staff Sap Crm Developer Timothy Diaz [facility] Mail Code AVW2-1 [id number] [facility] [address] CC: To use this Smartlink, specify the provider ID whose address you want to display, e.g., .PROVADDR[1 (where 1 is the provider ID). documented in this encounterSumma Health08-19-2022 History of Present illness Narrative* Bridget Hudson - 04/12/2022 2:39 PM EDT Waiting for LALO for program status/follow up documented in this encounterSumma Health08-04-2022 History of Present illness Narrative* Ita Tuttle MD - 03/28/2022 3:00 PM EDT Images from the original note were not included. [facility] [place] Sissy Zepeda Department of Cardiovascular Medicine SECTION OF REGIONAL CARDIOLOGY OUTPATIENT VISIT DATE March 28, 2022 OUTPATIENT VISIT TYPE Established HISTORY OF PRESENT ILLNESS: Darius Valera is a 61 year old male here today for follow up from [place]. Has h/o AF, HTN, DMITRY, tachycardia induced CMP, and CHF. On Eliquis, Nifedipine XL, Valsartan/HCTZ, Lasix, Potassium chloride, and Sotalol. He followed before with a local dancing master Dr Hooks. He reported that he was [...] or gallop. No parasternal heave or thrill. [place] not displaced. LUNGS: clear to auscultation, no [...] Nifedipine - S/p DCC by his local dancing master (Dr Castle) and subsequent ablation by EP [...] lipids This note was partially generated using [employer] voice recognition system, and there may be some incorrect words, spellings, and punctuation that were not noted in checking the note before saving. Bill Tuttle M.D., F.A.C.C CONTACT INFORMATION: Bill Tuttle M.D., F.A.C.C. Staff Sap Crm Developer Timothy Diaz [facility] Mail Code AVW2-8 [id number] [facility] [address] CC: To use this Smartlink, specify the provider ID whose address you want to display, e.g., .PROVADDR[1 (where 1 is the provider ID). documented in this encounterSumma Health08-02-2022 History of Present illness Narrative* Bijal Jackson PA-C - 03/26/2022 1:40 PM EDT Incidental Lung Nodule Enrollment Call attempt: 1st Attempt Call status: Complete Enrolled in Lung Nodule program: Yes Lung Nodule outreach: Enrolled Lung Nodule Program Location: [place] Patient has already discussed lung nodule with his dancing master, who placed a consult to lung nodule clinic. He is scheduled to see Lilo Cuini later this month. documented in this encounterSumma Health07-29-2022 History of Present illness Narrative* Barbara Mccloud APRN.AGRICULTURAL SCIENCE PROFESSOR - 03/22/2022 9:59 AM EDT Images from the original note were not included. [facility] [place] [facility]y Zepeda Department of Cardiovascular Medicine SECTION [...] success off AAD Not applicable Barbara Mccloud APRN.AGRICULTURAL SCIENCE PROFESSOR Pulmonary CT scan 03/22/2022: IMPRESSION: 1. Normal [...] INFORMATION: Barbara Mccloud APRN.CNP documented in this encounterSumma Health07-29-2022 History of Present illness Narrative* RT Salome(R) [...] 2022 TIME: 8:50 AM documented in this encounterSumma Health05-19-2022 Miscellaneous Notes* Telephone Encounter - Britney Gamboa [...] Britney Gamboa APRN.CNP, DNP documented in this encounterSumma Health04-29-2022 Miscellaneous Notes* Telephone Encounter - Yara Rubin RN - 12/21/2021 4:03 PM EDT Closing encounter see encounter note as below: RX INSTRUCTIONS: Patient aware RX will be sent to pharmacy. No need to notify patient. Alicia Chavarria documented in this encounterSumma Health04-29-2022 Miscellaneous Notes* Telephone Encounter - Ran Driver [...] notify patient. Alicia Chavarria documented in this encounterSumma Health04-28-2022 Miscellaneous Notes* Telephone Encounter - Uyen Martinez RN - 12/20/2021 3:45 PM EDT Pt in for office visit with Dr. Roger flores. Requesting nursing home refills on all meds from mail away pharmacy, including sotalol. Pt had ablation on 12/03/21. Please sign refill of sotalol if appropriate. Thanks documented in this encounterSumma Health04-14-2022 Miscellaneous Notes* Telephone Encounter - Uyen Allison RN - 12/06/2021 4:34 PM EDT Completed form given to admin to fax and upload. Uyen Allison RN * Telephone Encounter - Tayla Burrell - 12/06/2021 1:11 PM EDT Received FMLA paper work today and left on nurses desk to complete. I also uploaded documents to [employer] * Telephone Encounter - Elida Abarca - 12/06/2021 10:49 AM EDT Please contact patient regarding MyChart message. documented in this encounterSumma Health04-13-2022 Miscellaneous Notes* Telephone Encounter - Barbara Mccloud [...] he has no improvement by Friday, to [facility] ED for evaluation. Patient verbalized understanding. I asked him to call the office with any updates. Barbara Mccloud APRN.SADI documented in this encounterSumma Health04-13-2022 Miscellaneous Notes* Telephone Encounter - Cammy Fay RN - 12/05/2021 3:55 PM EDT [facility] Center Inbound Phone Encounter DATE of SERVICE: 12/05/2021 TIME of SERVICE: 3:55 PM Status: Non-urgent, needs attention Service/Provider: EP/JAMIE Garvey M.D. Reason for call: Pain Contact information: [phone] Resolution: Sent to [facility] Comments: Pt states that he is having pain in his bilat upper chest, I can not even lay down . He is taking tylenol and it is not working. He wants to know if he can take something else? Please callto discuss. Cammy Fay RN Date of Resolution: 12/05/2021 Time of Resolution 3:55 PM documented in this encounterSumma Health04-13-2022 Miscellaneous Notes* Telephone Encounter - Elida Abarca - 12/05/2021 3:41 PM EDT Please contact patient regarding MyChart message. * Telephone Encounter - DARIO Jose - 12/05/2021 1:49 PM EDT Patients calling. Patients workplace did not receive [facility] paperwork & patient is needing a return to work date. Please advise [phone] documented in this encounterSumma Health04-12-2022 History of Present illness Narrative* Tammy Mendoza - 12/04/2021 11:12 AM EDT TRANSMITTER INSTRUCTIONS Patient Name: Darius Valera [facility] Number: [id number] Fresh battery inserted in monitor Baseline recording not completed Patient instructed 1.) Scheduled and Symptomatic recording instructions 2.) Usage of event button and/or transmission instructions 3.) Maintenance and care of monitor 4.) Landline availability 5.) Return unit at the end of prescribed order 6.) Call with problems [phone] Patient expresses good verbal understanding of instructions Tammy Mendoza documented in this encounterSumma Health04-08-2022 History of Present illness Narrative* Griselda Felder [...] discussed with Physician, nurse practitioner or Physician assistant boiler operator upon discharge Instructions for transmitting EKG to Monitoring Center 3 month follow up instructions Contact number for information and questions Patient Evaluation: Verbalizes understanding Follow Up Plan: Follow up as directed by MD. Supplemental Material Given: Written Material Patient education regarding radiation exposure. Instructed By Griselda Felder RN, RN. In Department of CARDIOLOGY. documented in this encounterMercy [facility]* Diagnosis AF (paroxysmal atrial fibrillation) (HCC)- Primary Atrial fibrillation documented in this encounter [facility] note* Diagnosis Persistent atrial fibrillation (HCC) Atrial fibrillation documented in this encounter [facility] note* Diagnosis Atrial fibrillation, persistent (HCC)- Primary Atrial fibrillation documented in this encounter [facility] note* Diagnosis Atrial fibrillation, persistent (HCC) Atrial fibrillation Benign essential HTN Essential hypertension, benign documented in this encounter [facility] note* Diagnosis Atrial fibrillation, persistent (HCC) Atrial fibrillation Benign essential HTN Essential hypertension, benign Hypertension, unspecified type documented in this encounter [facility] note* Diagnosis Atrial fibrillation, persistent (HCC)- Primary Atrial fibrillation Lung nodule Solitary pulmonary nodule DMITRY (obstructive sleep apnea) Obstructive sleep apnea (adult) (pediatric) documented in this encounter [facility] note* Diagnosis Persistent atrial fibrillation (HCC) Atrial fibrillation documented in this encounter [facility] note* Diagnosis Lung nodule- Primary Solitary pulmonary nodule documented in this encounter [facility] note* Diagnosis Atherosclerosis- Primary Generalized and unspecified atherosclerosis Ascending aorta dilatation (HCC) Thoracic aortic ectasia Tachycardia induced cardiomyopathy (HCC) Tachycardia, unspecified documented in this encounter [facility] note* Diagnosis Tachycardia induced cardiomyopathy (HCC)- Primary Tachycardia, unspecified documented in this encounter [facility] note* Diagnosis Atrial fibrillation, persistent (HCC)- Primary Atrial fibrillation Hypertension, unspecified type DMITRY (obstructive sleep apnea) Obstructive sleep apnea (adult) (pediatric) Benign essential HTN Essential hypertension, benign S/P ablation of atrial fibrillation Other postprocedural status Encounter for current long-term use of anticoagulants Long-term (current) use of anticoagulants documented in this encounter [facility] note* Diagnosis Hypertension, unspecified type- Primary documented in this encounter [facility] note* Diagnosis Hypertension, unspecified type documented in this encounter [facility] note* Diagnosis Medication refill [Z76.0 (ICD-10-CM)]- Primary Issue of repeat prescriptions Hypertension, unspecified type documented in this encounter [facility] note* Diagnosis Hypertension, unspecified type- Primary documented in this encounter [facility] note* Diagnosis Atrial fibrillation, persistent (HCC) Atrial fibrillation Benign essential HTN Essential hypertension, benign documented in this encounter [facility] note* Diagnosis Hypertension, unspecified type- Primary Aortic root dilatation (HCC) Thoracic aortic ectasia documented in this encounter [facility] note* Diagnosis Hypertension, unspecified type documented in this encounter [facility] noteNo assessment information availableSt. [facility] Work Phone: [facility] note* Diagnosis Paroxysmal atrial fibrillation (HCC)- Primary Atrial fibrillation Atrial fibrillation, persistent (HCC) Atrial fibrillation Benign essential HTN Essential hypertension, benign Hypertension, unspecified type Prescription refill Issue of repeat prescriptions Tachycardia induced cardiomyopathy (HCC) Tachycardia, unspecified Aortic root dilatation (HCC) Thoracic aortic ectasia documented in this encounter [facility] note* Diagnosis Onset Date Resolution Status Lymphocytosis acute [facility] Work Phone: Evaluation note* Diagnosis Screening for malignant neoplasm of colon- Primary [facility] Tear of medial meniscus of right knee, current, unspecified tear type, subsequent encounter- Primary [facility] Diagnosis Strain of thoracic back region- Primary Muscle spasm Spasm of muscle [facility] Diagnosis Strain of thoracic back region- Primary Muscle spasm Spasm of muscle [facility] Diagnosis Pre-op testing Unspecified pre-operative examination [facility] History of colon polyps- Primary Screening for malignant neoplasm of colon documented in this encounter [facility]* Diagnosis S/P right knee arthroscopy- Primary [facility] Diagnosis Acute non-recurrent maxillary sinusitis- Primary documented in this encounter [facility]* Diagnosis Primary hypertension- Primary Unspecified essential hypertension PAF (paroxysmal atrial fibrillation) (HCC) Atrial fibrillation Coronary artery calcification Coronary atherosclerosis of unspecified type of vessel, [place] or graft [facility] Prescription refill- Primary Issue of repeat prescriptions [facility] Diagnosis Left hand pain- Primary Pain in soft tissues of limb S/P right knee arthroscopy Right knee pain, unspecified chronicity [facility] Diagnosis S/P right knee arthroscopy- Primary [facility] Diagnosis Hypertension, unspecified type documented in this encounter [facility] note* Diagnosis Wellness examination- Primary Muscle cramping [...] neoplasm of prostate [facility] Diagnosis PAF (paroxysmal atrial fibrillation) (HCC)- Primary Atrial fibrillation Atrial fibrillation, persistent (HCC) Atrial fibrillation Benign essential HTN Essential hypertension, benign Hypertension, unspecified type Tachycardia induced cardiomyopathy (HCC) Tachycardia, unspecified [facility] Here for follow-up [...] 4. Arrangements for cardioversion will be made [facility] DO Work Phone: History of Present [...] 4. Arrangements for cardioversion will be made [facility] Work Phone: History of Present illness Narrative* [...] 4. Arrangements for cardioversion will be made [facility] Work Phone: History of Present illness Narrative* [...] his primary care provider. documented in this encounterN[facility] HealthcareReason for referral (narrative)* Outpatient Procedure (Routine) - Pending Review Specialty Diagnoses / Procedures Referred By Renaac t Referred To Contact [facility] Diagnoses Persistent atrial fibrillation (HCC) Procedures ECG COMPLETE ECG ROUTINE ECG W/LEAST 12 LDS W/I&R 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 APRN.CNP [address] [place] [address] [facility] [place] [address] [place] [address] Referral ID Status Reason Start Date Expiration Date Visits Requested Visits Authorized [id number] Pending Review Auto-Generat ed Referral 12/12/2021 12/12/2022 1 1 * MRI/CT (Routine) - Pending Review Specialty Diagnoses / Procedures Referred By Shima carrillo Referred To Contact CT IMAGING Diagnoses Persistent atrial fibrillation (HCC) Procedures CT PULMONARY VEIN W IVCON CT HEART CONTRAST EVAL CARDIAC STRUCTURE&MORPH 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 APRN.AGRICULTURAL SCIENCE PROFESSOR [address] [place] [id number] Imaging Referral ID Status Reason Start Date Expiration Date Visits Requested Visits Authorized [id number] Pending Review Auto-Generat ed Referral 03/13/2022 01/11/2023 1 1 * Outpatient Procedure (Routine) - Pending Review Specialty Diagnoses / Procedures Referred By Contac t Referred To Contact [facility] Diagnoses Persistent atrial fibrillation (HCC) Procedures ECHO ECHO TTHRC R-T 2D W/WOM-MODE COMPL SPEC&COLR D 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 APRN.AGRICULTURAL SCIENCE PROFESSOR [address] [place] [address] [facility] [place] [place] [address] Referral ID Status Reason Start Date Expiration Date Visits Requested Visits Authorized [id number] Pending Review Auto-Generat ed Referral 12/12/2021 12/12/2022 1 1 [facility] for referral (narrative)* Outpatient Procedure (Routine) - Closed Specialty Diagnoses / Procedures Referred By Contac t Referred To Contact [facility] Diagnoses Atrial fibrillation, persistent (HCC) Procedures ECG COMPLETE ECG ROUTINE ECG W/LEAST 12 LDS W/I&R Hiren Sena MD [address] [place] [address] [facility] [place] [address] [place], [place] [id number] Referral ID Status Reason Start Date Expiration Date V isits Requested Visits Authorized [id number] Closed Auto-Generate d Referral 08/01/2022 08/01/2023 1 1 [facility] for referral (narrative)No reason for referral information availableSt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 Advance Directive(s) 10/18/2021 4:33 PM [...] Procedures CONSULT TO LUNG NODULE CLINIC OFFICE/OUTPATIENT [facility] 60-74 MINUTES Barbara Mccloud APRN.AGRICULTURAL SCIENCE PROFESSOR [address] [place] [address] Referral ID Status Reason Start Date Expiration Date Visits Requested Visits Authorized [id number] Pending Review PCP Requested Referral 03/22/2022 03/22/2023 1 1 Specialty Diagnoses / Procedures Referred By Shima carrillo Referred To Contact CT IMAGING Diagnoses Persistent atrial fibrillation (HCC) Procedures CT PULMONARY VEIN W IVCON CT HEART CONTRAST EVAL CARDIAC STRUCTURE&MORPH 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, MERLY.AGRICULTURAL SCIENCE PROFESSOR [address] [place] [address] Ct Imaging Referral ID Status Reason Start Date Expiration Date V isits Requested Visits Authorized [id number] Closed Auto-Generate d Referral 03/13/2022 04/14/2022 1 [...] section and content) DATE CREATED AUTHOR [facility]/19/[facility] DATE CREATED AUTHOR AUTHOR'S ORGANIZ ATION 06/27/2021 [place] DATE CREATED AUTHOR AUTHOR'S ORGANIZ ATION 08/30/2021 [facility] DATE CREATED AUTHOR AUTHOR'S ORGANIZ ATION 10/18/2022 [facility] DATE CREATED AUTHOR AUTHOR'S ORGANIZ ATION 01/31/2023 [facility] DATE CREATED AUTHOR AUTHOR'S ORGANIZ ATION 04/11/2023 [facility] DATE CREATED AUTHOR AUTHOR'S ORGANIZ ATION 01/18/2024 [facility] DATE CREATED AUTHOR AUTHOR'S ORGANIZ ATION 09/23/2024 [facility] DATE CREATED AUTHOR AUTHOR'S ORGANIZ ATION 03/05/2025 [facility] EPIC DATE CREATED AUTHOR AUTHOR'S ORGANIZ ATION 03/20/2025 [facility] DATE CREATED AUTHOR AUTHOR'S ORGANIZ ATION 05/17/2025 [facility] Source Comments (unrecognize d section and content) In the event this informatio n is protected by the Federal Confidentiality of Alcohol and Drug Abuse Patient Records regulations: The Federal rules restrict any use of the information to criminally investigate or prosecute any alcohol or drug abuse patient.[facility] HealthIn the event this information is protected by the Federal Confidentiality of Alcohol and Drug Abuse Patient Records regulations: The Federal rules restrict any use of the information to criminally investigate or prosecute any alcohol or drug abuse patient.[facility] HealthIn the event this information is protected by the Federal Confidentiality of Alcohol and Drug Abuse Patient Records regulations: The Federal rules restrict any use of the information to criminally investigate or prosecute any alcohol or drug abuse patient.[facility] HealthIn the event this information is protected by the Federal Confidentiality of Alcohol and Drug Abuse Patient Records regulations: The Federal rules restrict any use of the information to criminally investigate or prosecute any alcohol or drug abuse patient.[facility] HealthIn the event this information is protected by the Federal Confidentiality of Alcohol and Drug Abuse Patient Records regulations: The Federal rules restrict any use of the information to criminally investigate or prosecute any alcohol or drug abuse patient.[facility] HealthIn the event this information is protected by the Federal Confidentiality of Alcohol and Drug Abuse Patient Records regulations: The Federal rules restrict any use of the information to criminally investigate or prosecute any alcohol or drug abuse patient.[facility] HealthIn the event this information is protected by the Federal Confidentiality of Alcohol and Drug Abuse Patient Records regulations: The Federal rules restrict any use of the information to criminally investigate or prosecute any alcohol or drug abuse patient.[facility] the event this information is protected by the Federal Confidentiality of Alcohol and Drug Abuse Patient Records regulations: The Federal rules restrict any use of the information to criminally investigate or prosecute any alcohol or drug abuse patient.[facility] HealthIn the event this information is protected by the Federal Confidentiality of Alcohol and Drug Abuse Patient Records regulations: The Federal rules restrict any use of the information to criminally investigate or prosecute any alcohol or drug abuse patient.[facility] HealthIn the event this information is protected by the Federal Confidentiality of Alcohol and Drug Abuse Patient Records regulations: The Federal rules restrict any use of the information to criminally investigate or prosecute any alcohol or drug abuse patient.[facility] the event this information is protected by the Federal Confidentiality of Alcohol and Drug Abuse Patient Records regulations: The Federal rules restrict any use of the information to criminally investigate or prosecute any alcohol or drug abuse patient.[facility] HealthIn the event this information is protected by the Federal Confidentiality of Alcohol and Drug Abuse Patient Records regulations: The Federal rules restrict any use of the information to criminally investigate or prosecute any alcohol or drug abuse patient.[facility] HealthIn the event this information is protected by the Federal Confidentiality of Alcohol and Drug Abuse Patient Records regulations: The Federal rules restrict any use of the information to criminally investigate or prosecute any alcohol or drug abuse patient.[facility] HealthIn the event this information is protected by the Federal Confidentiality of Alcohol and Drug Abuse Patient Records regulations: The Federal rules restrict any use of the information to criminally investigate or prosecute any alcohol or drug abuse patient.[facility] HealthIn the event this information is protected by the Federal Confidentiality of Alcohol and Drug Abuse Patient Records regulations: The Federal rules restrict any use of the information to criminally investigate or prosecute any alcohol or drug abuse patient.[facility] HealthIn the event this information is protected by the Federal Confidentiality of Alcohol and Drug Abuse Patient Records regulations: The Federal rules restrict any use of the information to criminally investigate or prosecute any alcohol or drug abuse patient.[facility] HealthIn the event this information is protected by the Federal Confidentiality of Alcohol and Drug Abuse Patient Records regulations: The Federal rules restrict any use of the information to criminally investigate or prosecute any alcohol or drug abuse patient.[facility] HealthIn the event this information is protected by the Federal Confidentiality of Alcohol and Drug Abuse Patient Records regulations: The Federal rules restrict any use of the information to criminally investigate or prosecute any alcohol or drug abuse patient.[facility] HealthIn the event this information is protected by the Federal Confidentiality of Alcohol and Drug Abuse Patient Records regulations: The Federal rules restrict any use of the information to criminally investigate or prosecute any alcohol or drug abuse patient.[facility] HealthIn the event this information is protected by the Federal Confidentiality of Alcohol and Drug Abuse Patient Records regulations: The Federal rules restrict any use of the information to criminally investigate or prosecute any alcohol or drug abuse patient.[facility] HealthIn the event this information is protected by the Federal Confidentiality of Alcohol and Drug Abuse Patient Records regulations: The Federal rules restrict any use of the information to criminally investigate or prosecute any alcohol or drug abuse patient.[facility] HealthIn the event this information is protected by the Federal Confidentiality of Alcohol and Drug Abuse Patient Records regulations: The Federal rules restrict any use of the information to criminally investigate or prosecute any alcohol or drug abuse patient.[facility] HealthIn the event this information is protected by the Federal Confidentiality of Alcohol and Drug Abuse Patient Records regulations: The Federal rules restrict any use of the information to criminally investigate or prosecute any alcohol or drug abuse patient.[facility] HealthIn the event this information is protected by the Federal Confidentiality of Alcohol and Drug Abuse Patient Records regulations: The Federal rules restrict any use of the information to criminally investigate or prosecute any alcohol or drug abuse patient.[facility] HealthIn the event this information is protected by the Federal Confidentiality of Alcohol and Drug Abuse Patient Records regulations: The Federal rules restrict any use of the information to criminally investigate or prosecute any alcohol or drug abuse patient.[facility] HealthIn the event this information is protected by the Federal Confidentiality of Alcohol and Drug Abuse Patient Records regulations: The Federal rules restrict any use of the information to criminally investigate or prosecute any alcohol or drug abuse patient.[facility] HealthIn the event this information is protected by the Federal Confidentiality of Alcohol and Drug Abuse Patient Records regulations: The Federal rules restrict any use of the information to criminally investigate or prosecute any alcohol or drug abuse patient.[facility] HealthIn the event this information is protected by the Federal Confidentiality of Alcohol and Drug Abuse Patient Records regulations: The Federal rules restrict any use of the information to criminally investigate or prosecute any alcohol or drug abuse patient.[facility] HealthIn the event this information is protected by the Federal Confidentiality of Alcohol and Drug Abuse Patient Records regulations: The Federal rules restrict any use of the information to criminally investigate or prosecute any alcohol or drug abuse patient.[facility] HealthIn the event this information is protected by the Federal Confidentiality of Alcohol and Drug Abuse Patient Records regulations: The Federal rules restrict any use of the information to criminally investigate or prosecute any alcohol or drug abuse patient.[facility] HealthIn the event this information is protected by the Federal Confidentiality of Alcohol and Drug Abuse Patient Records regulations: The Federal rules restrict any use of the information to criminally investigate or prosecute any alcohol or drug abuse patient.[facility] HealthIn the event this information is protected by the Federal Confidentiality of Alcohol and Drug Abuse Patient Records regulations: The Federal rules restrict any use of the information to criminally investigate or prosecute any alcohol or drug abuse patient.[facility] HealthIn the event this information is protected by the Federal Confidentiality of Alcohol and Drug Abuse Patient Records regulations: The Federal rules restrict any use of the information to criminally investigate or prosecute any alcohol or drug abuse patient.[facility] HealthIn the event this information is protected by the Federal Confidentiality of Alcohol and Drug Abuse Patient Records regulations: The Federal rules restrict any use of the information to criminally investigate or prosecute any alcohol or drug abuse patient.[facility] HealthIn the event this information is protected by the Federal Confidentiality of Alcohol and Drug Abuse Patient Records regulations: The Federal rules restrict any use of the information to criminally investigate or prosecute any alcohol or drug abuse patient.[facility] HealthIn the event this information is protected by the Federal Confidentiality of Alcohol and Drug Abuse Patient Records regulations: The Federal rules restrict any use of the information to criminally investigate or prosecute any alcohol or drug abuse patient.[facility] HealthIn the event this information is protected by the Federal Confidentiality of Alcohol and Drug Abuse Patient Records regulations: The Federal rules restrict any use of the information to criminally investigate or prosecute any alcohol or drug abuse patient.[facility] HealthIn the event this information is protected by the Federal Confidentiality of Alcohol and Drug Abuse Patient Records regulations: The Federal rules restrict any use of the information to criminally investigate or prosecute any alcohol or drug abuse patient.[facility] HealthIn the event this information is protected by the Federal Confidentiality of Alcohol and Drug Abuse Patient Records regulations: The Federal rules restrict any use of the information to criminally investigate or prosecute any alcohol or drug abuse patient.[facility] HealthIn the event this information is protected by the Federal Confidentiality of Alcohol and Drug Abuse Patient Records regulations: The Federal rules restrict any use of the information to criminally investigate or prosecute any alcohol or drug abuse patient.[facility] HealthIn the event this information is protected by the Federal Confidentiality of Alcohol and Drug Abuse Patient Records regulations: The Federal rules restrict any use of the information to criminally investigate or prosecute any alcohol or drug abuse patient.[facility] HealthIn the event this information is protected by the Federal Confidentiality of Alcohol and Drug Abuse Patient Records regulations: The Federal rules restrict any use of the information to criminally investigate or prosecute any alcohol or drug abuse patient.[facility] HealthIn the event this information is protected by the Federal Confidentiality of Alcohol and Drug Abuse Patient Records regulations: The Federal rules restrict any use of the information to criminally investigate or prosecute any alcohol or drug abuse patient.[facility] HealthIn the event this information is protected by the Federal Confidentiality of Alcohol and Drug Abuse Patient Records regulations: The Federal rules restrict any use of the information to criminally investigate or prosecute any alcohol or drug abuse patient.[facility] HealthIn the event this information is protected by the Federal Confidentiality of Alcohol and Drug Abuse Patient Records regulations: The Federal rules restrict any use of the information to criminally investigate or prosecute any alcohol or drug abuse patient.[facility] HealthIn the event this information is protected by the Federal Confidentiality of Alcohol and Drug Abuse Patient Records regulations: The Federal rules restrict any use of the information to criminally investigate or prosecute any alcohol or drug abuse patient.[facility] HealthIn the event this information is protected by the Federal Confidentiality of Alcohol and Drug Abuse Patient Records regulations: The Federal rules restrict any use of the information to criminally investigate or prosecute any alcohol or drug abuse patient.[facility] HealthIn the event this information is protected by the Federal Confidentiality of Alcohol and Drug Abuse Patient Records regulations: The Federal rules restrict any use of the information to criminally investigate or prosecute any alcohol or drug abuse patient.[facility] HealthIn the event this information is protected by the Federal Confidentiality of Alcohol and Drug Abuse Patient Records regulations: The Federal rules restrict any use of the information to criminally investigate or prosecute any alcohol or drug abuse patient.[facility] HealthIn the event this information is protected by the Federal Confidentiality of Alcohol and Drug Abuse Patient Records regulations: The Federal rules restrict any use of the information to criminally investigate or prosecute any alcohol or drug abuse patient.[facility] HealthIn the event this information is protected by the Federal Confidentiality of Alcohol and Drug Abuse Patient Records regulations: The Federal rules restrict any use of the information to criminally investigate or prosecute any alcohol or drug abuse patient.[facility] HealthIn the event this information is protected by the Federal Confidentiality of Alcohol and Drug Abuse Patient Records regulations: The Federal rules restrict any use of the information to criminally investigate or prosecute any alcohol or drug abuse patient.[facility] HealthIn the event this information is protected by the Federal Confidentiality of Alcohol and Drug Abuse Patient Records regulations: The Federal rules restrict any use of the information to criminally investigate or prosecute any alcohol or drug abuse patient.[facility] HealthIn the event this information is protected by the Federal Confidentiality of Alcohol and Drug Abuse Patient Records regulations: The Federal rules restrict any use of the information to criminally investigate or prosecute any alcohol or drug abuse patient.[facility] HealthIn the event this information is protected by the Federal Confidentiality of Alcohol and Drug Abuse Patient Records regulations: The Federal rules restrict any use of the information to criminally investigate or prosecute any alcohol or drug abuse patient.[facility] HealthIn the event this information is protected by the Federal Confidentiality of Alcohol and Drug Abuse Patient Records regulations: The Federal rules restrict any use of the information to criminally investigate or prosecute any alcohol or drug abuse patient.[facility] HealthIn the event this information is protected by the Federal Confidentiality of Alcohol and Drug Abuse Patient Records regulations: The Federal rules restrict any use of the information to criminally investigate or prosecute any alcohol or drug abuse patient.[facility] the event this information is protected by the Federal Confidentiality of Alcohol and Drug Abuse Patient Records regulations: The Federal rules restrict any use of the information to criminally investigate or prosecute any alcohol or drug abuse patient.[facility] HealthIn the event this information is protected by the Federal Confidentiality of Alcohol and Drug Abuse Patient Records regulations: The Federal rules restrict any use of the information to criminally investigate or prosecute any alcohol or drug abuse patient.[facility] HealthIn the event this information is protected by the Federal Confidentiality of Alcohol and Drug Abuse Patient Records regulations: The Federal rules restrict any use of the information to criminally investigate or prosecute any alcohol or drug abuse patient.[facility] the event this information is protected by the Federal Confidentiality of Alcohol and Drug Abuse Patient Records regulations: The Federal rules restrict any use of the information to criminally investigate or prosecute any alcohol or drug abuse patient.[facility] HealthIn the event this information is protected by the Federal Confidentiality of Alcohol and Drug Abuse Patient Records regulations: The Federal rules restrict any use of the information to criminally investigate or prosecute any alcohol or drug abuse patient.[facility] HealthIn the event this information is protected by the Federal Confidentiality of Alcohol and Drug Abuse Patient Records regulations: The Federal rules restrict any use of the information to criminally investigate or prosecute any alcohol or drug abuse patient.[facility] HealthIn the event this information is protected by the Federal Confidentiality of Alcohol and Drug Abuse Patient Records regulations: The Federal rules restrict any use of the information to criminally investigate or prosecute any alcohol or drug abuse patient.[facility] HealthIn the event this information is protected by the Federal Confidentiality of Alcohol and Drug Abuse Patient Records regulations: The Federal rules restrict any use of the information to criminally investigate or prosecute any alcohol or drug abuse patient.[facility] HealthIn the event this information is protected by the Federal Confidentiality of Alcohol and Drug Abuse Patient Records regulations: The Federal rules restrict any use of the information to criminally investigate or prosecute any alcohol or drug abuse patient.[facility] HealthIn the event this information is protected by the Federal Confidentiality of Alcohol and Drug Abuse Patient Records regulations: The Federal rules restrict any use of the information to criminally investigate or prosecute any alcohol or drug abuse patient.[facility] Reason for Visit (unrecogniz ed section and [...] HEART CONTRAST EVAL CARDIAC STRUCTURE&MORPH 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, DOVETAIL 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 [address] [place] [address] Ct Imaging Referral ID Status Reason Start Date Expiration Date V isits Requested Visits Authorized [id number] Closed Auto-Generate d Referral 03/13/2022 04/14/2022 1 [...] Screening for malignant neoplasm of colon Procedures [place] OFFICE/OUTPATIENT [facility] 60 MINUTES Linda Jansen PA [address] [facility] [address] [place] [address] Grace Bucio MD [address] [place] [address] Referral ID Status Reason Start Date Expiration Date V isits Requested Visits Authorized [id number] Closed Specialty Services Required 02/09/2024 08/07/2024 1 1 Reason Comments Knee Pain Post-op Reason Comments Knee Pain Post-op Pain Reason Comments Pain Reason Onset Date Comments Refill Request 01/01/2025 Care Teams (unrecognized sec tion and content) Data Entry Analyst Relationship Specialty [place] [address] [place] [address] Primary Staff Physician Cardiology 03/22/22 Data Entry Analyst Relationship Specialty [place] [address] [place] [address] Primary Staff Physician Cardiology 03/22/22 Data Entry Analyst Relationship Specialty Start Date End Date Ita Tuttle MD [address] [place] [address], [place] [address] Primary Staff Physician Cardiology 03/22/22 Data Entry Analyst Relationship Specialty Start Date End Date Ita Tuttle MD [address] [place] [address] [place] [address] Primary Staff Physician Cardiology 03/22/22 Data Entry Analyst Relationship Specialty Start Date End Date Ita Tuttle MD [address] [place] [address] Primary Staff Physician Cardiology 03/22/22 Data Entry Analyst Relationship Specialty Start Date End Date Ita Tuttle MD [address] [place] [address] Primary Staff Physician Cardiology 03/22/22 Data Entry Analyst Relationship Specialty Start Date End Date Ita Tuttle MD [address] [place] [address] Primary Staff Physician Cardiology 03/22/22 Data Entry Analyst Relationship Specialty Start Date End Date Ita Tuttle MD [address] [place] [address] Primary Staff Physician Cardiology 03/22/22 Data Entry Analyst Relationship Specialty Start Date End Date Ita Tuttle MD [address] [place] [address] Primary Staff Physician Cardiology 03/22/22 Data Entry Analyst Relationship Specialty Start Date End Date Ita Tuttle MD [address] [place] [address] Primary Staff Physician Cardiology 03/22/22 Data Entry Analyst Relationship Specialty Start Date End Date Ita Tuttle MD [address] [place] [address] Primary Staff Physician Cardiology 03/22/22 Data Entry Analyst Relationship Specialty [place] [address] [place] [address] Primary Staff Physician Cardiology 03/22/22 Data Entry Analyst Relationship Specialty [place] [address] [place] [address] Primary Staff Physician Cardiology 03/22/22 Data Entry Analyst Relationship Specialty [place] [address] [place] [address] Primary Staff Physician Cardiology 03/22/22 Data Entry Analyst Relationship Specialty Start Date End Date Ita [place]uttle [place] [id number] [place] [address] Primary Staff Physician Cardiology 03/22/22 Data Entry Analyst Relationship Specialty [place] [address] [place] [address] Primary Staff Physician Cardiology 03/22/22 Data Entry Analyst Relationship Specialty [place] [address] [place] [address] Primary Staff Physician Cardiology 03/22/22 Data Entry Analyst Relationship Specialty [place] [address] [place] [address] Primary Staff Physician Cardiology 03/22/22 Team Status: [...] January 23, 2024 End: January 23, 2024 Data Entry Analyst Relationship Specialty [place] [address] [place], [place] [id number] Primary Staff Physician Cardiology 03/22/22 Data Entry Analyst Relationship Specialty [place] [address] [place] [address] Primary Staff Physician Cardiology 03/22/22 Team Status: [...] April 23, 2024 End: April 23, 2024 Data Entry Analyst Relationship Specialty Start Date End Date Linda Jansen PA [address] [facility] [address] [place] [address] PCP - General Family Medicine 08/06/23 Linda Jansen PA [address] [facility] [address] [place] [address] PCP - Medical [place] [employer] 02/22/23 08/24/99 Data Entry Analyst Relationship Specialty Start Date End Date Linda Jansen PA [address] [facility] [address] [place] [address] PCP - General Family Medicine 08/06/23 Linda Jansen PA [address] [facility] [address] [place] [address] PCP - Medical [place] [employer] 02/22/23 08/24/99 Data Entry Analyst Relationship Specialty Start Date End Date Linda Jansen PA [address] [facility] [address] [place] [address] PCP - General [facility] 08/06/23 Linda Jansen PA [address] [facility] [address] [place] [address] PCP - Medical [facility] 02/22/23 08/24/99 Data Entry Analyst Relationship Specialty Start Date End Date Linda Jansen PA [address] [facility] [address] [place] [address] PCP - General Family Medicine 08/06/23 Linda Jansen PA [address] [facility] [address] [place] [address] PCP - Medical [facility] 02/22/23 08/24/99 Data Entry Analyst Relationship Specialty Start Date End Date Linda Jansen PA [address] [facility] [address] [place] [address] PCP - General Family Medicine 08/06/23 Linda Jansen PA [address] [facility] [address] [place] [address] PCP - Medical [facility] 02/22/23 08/24/99 Data Entry Analyst Relationship Specialty Start Date End Date Linda Jansen PA [address] [facility] [address] [place] [address] PCP - General Family Medicine 08/06/23 Linda Jansen PA [address] [facility] [address] [place] [address] PCP - Medical [place] [facility] 02/22/23 08/24/99 Data Entry Analyst Relationship Specialty [place] [address] [place] [address] Primary Staff Physician Cardiology 03/22/22 Data Entry Analyst Relationship Specialty Start Date End Date Linda Jansen PA [address] [facility] [address] [place] [address] PCP - General Family Medicine 08/06/23 Linda Jansen PA [address] [facility] [address] [place] [address] PCP - Medical [place] [employer] 02/22/23 08/24/99 Data Entry Analyst Relationship Specialty Start Date End Date Linda Jansen PA [address] [facility] [address] [place] [address] PCP - General Family Medicine 08/06/23 Data Entry Analyst Relationship Specialty Start Date End Date Linda Jansen PA [address] [facility] [address] [place] [address] PCP - General Family Medicine 08/06/23 Data Entry Analyst Relationship Specialty Start Date End Date Linda Jansen PA [address] [facility] [address] [place] [address] PCP - General Family Medicine 08/06/23 Data Entry Analyst Relationship Specialty Start Date End Date Linda Jansen PA [address] [facility] [address] [place] [address] PCP - General Family Medicine 08/06/23 Linda Jansen PA [address] [facility] [address] [place] [address] PCP - Medical [place] [employer] 02/22/23 08/24/99 Data Entry Analyst Relationship Specialty [place] [address] [place], [place] [id number] Primary Staff Physician Cardiology 03/22/22 Data Entry Analyst Relationship Specialty Start Date End Date Linda Jansen PA [address] [facility] [address] [place] [address] PCP - General Family Medicine 08/06/23 Linda Jansen PA [address] [facility] [address] [place] [address] PCP - Medical [place] [employer] 02/22/23 08/24/99 Team Status: Active Member Role Status Dates NON STAFF Primary Care Provider Active Team Status: Active Member Role Status Dates Sedrick Ye MD Primary Care Provider Active S tart: November 12, 2024 Christian Carlos II, Attending Provider Active Start: November 12, 2024 Linda Jansen , [employer] Referring Provider Active St art: November 12, 2024 Team Status: Inactive Member Role Status Dates NON STAFF Primary Care Provider Active Start: November 30, 2024 End: November 30, 2024 Russell Gómez - DENNY , [facility] Attending Provider Active Start: November 30, 2024 End: November 30, 2024 Data Entry Analyst Relationship Specialty [place] [address] [place] [address] Primary Staff Physician Cardiology 03/22/22 Data Entry Analyst Relationship Specialty Start Date End Date Linda Jansen PA [address] [facility] [address] [place] [address] PCP - General Family Medicine 08/06/23 Linda Jansen PA [address] [facility] [address] [place] [address] PCP - Medical [place] [employer] 02/22/23 08/24/99 Data Entry Analyst Relationship Specialty Start Date End Date Linda Jansen PA [address] [facility] [address] [place] [address] PCP - General Family Medicine 08/06/23 Linda Jansen PA [address] [facility] [address] [place] [address] PCP - Medical [place] [employer] 02/22/23 08/24/99 Team Status: Active Member [...] February 19, 2025 End: February 19, 2025 Data Entry Analyst Relationship Specialty Start Date End Date Linda Jansen PA [address] [facility] [address] [place] [address] PCP - General Family Medicine 08/06/23 Linda Jansen PA [address] [facility] [address] [place] [address] PCP - Medical [facility] 02/22/23 08/24/99 Team Status: Inactive Member Role [...] Provider Active St art: March 04, 2025 Data Entry Analyst Relationship Specialty [place] [address] [place] [address] Primary Staff Physician Cardiology 03/22/22 Data Entry Analyst Relationship Specialty Start Date End Date Linda Jansen PA [address] [facility] [address] [place] [address] PCP - General Family Medicine 08/06/23 Data Entry Analyst Relationship Specialty Start Date End Date Linda Jansen PA [address] [facility] [address] [place] [address] PCP - General Family Medicine 08/06/23 Data Entry Analyst Relationship Specialty Start Date End Date Linda Jansen PA [address] [facility] [address] [place] [address] PCP - General Family Medicine 08/06/23 Team [...] BE BASED ON THE PRIMARY CLINICAL RECORDS. [facility] [employer] [facility]. provides no warranty or guarantee of the accuracy or completeness of information in this document.
[2025-05-19 06:41] LABS: Hematocrit 32.1 % (42.0-54.0); Hemoglobin 10.5 g/dL (14.0-18.0); Mean Corpuscular HGB Conc 32.7 g/dL (29.9-35.2); Mean Corpuscular Hemoglobin 36.7 pg (25.9-34.0); Mean Corpuscular Volume 112.2 fL (80.0-94.0); Platelet Count 151 10^3/uL (150-450); Red Blood Count 2.86 10^6/uL (4.70-6.10); White Blood Count 29.2 10^3/uL (4.0-11.0)
[2025-05-19 07:09] LABS: Alanine Aminotransferase 37 U/L (16-63); Albumin Globulin Ratio 1.6; Albumin Level 3.9 g/dL (3.4-5.0); Alkaline Phosphatase 80 U/L (46-116); Anion Gap 9.0; Aspartate Amino Transferase 27 U/L (15-37); Blood Urea Nitrogen 19.0 mg/dL (7.0-18.0); Calcium 8.7 mg/dL (8.5-10.1); Carbon Dioxide 31.8 mmol/L (21.0-32.0); Chloride 104 mmol/L (98-107); Estimated GFR (African America >60 (>=60 mL/min/1.73m^2); Estimated GFR (Non-African Ame >60 (>=60 mL/min/1.73m^2); Globulin 2.5 g/dL; Glucose 84 mg/dL (74-106); Potassium 3.8 mmol/L (3.5-5.1); Sodium 141 mmol/L (136-145); Total Protein 6.4 g/dL (6.4-8.2)
[2025-05-19 07:47] LABS: Basophils Abs Manual 0.00 10^3/uL (0.00-0.10); Basophils Percent Manual 0.0 % (0.2-2.0); Eosinophils Absolute Manual 0.00 10^3/uL (0.00-0.70); Eosinophils Percent Manual 0.0 % (0.9-7.0); Lymphocytes Absolute Manual 22.19 10^3/uL (1.20-3.80); Lymphocytes Percent Manual 76.0 % (20.5-60.0); Monocytes Absolute Manual 0.29 10^3/uL (0.30-0.80); Monocytes Percent Manual 1.0 % (1.7-12.0); Segmented Neut Absolute Manual 6.71 10^3/uL (1.4-6.5); Segmented Neutrophils % Manual 23.0 (43.0-75.0); Smudge Cells SEEN
[2025-05-19 07:48] LABS: Anisocytosis 1+; Macrocytosis 1+
== END 2025-05-19 06:21 | disposition home or self-care (01) ==
LOC: LAB 06:24
PROVIDERS: PCP Physician Assistant; Visit Provider Nurse Practitioner Adult Health
DX: D72.820 Lymphocytosis (symptomatic) (principal)
CPT/HCPCS: 36415; 80053; 85007; 85027

== ENCOUNTER 2025-05-26 06:10 | Outpatient (OUT) | payer MEDICARE, SELFPAY ==
--- OUTSIDE RECORDS SUMMARY | 2025-05-13 10:09 | XMS_ITS ---
Author Name Auto Generated Organization OHIP Support Name Relationship Address Phone Blair Valera Next of Kin [address] [place] [address] + SOTO, BLAIR Next of Kin [address] [facility] [address] + Soto, Blair Next of Kin [address] [place] [address] + SOTO, BLAIR Next of Kin [address] [facility] [address] + Soto, Blair Next of Kin [address] [facility] [place] [address] + SOTO, BLAIR Next of Kin [address] [facility] [address] + SOTO, BLAIR Next of Kin [address] [facility] [address] + SOTO, BLAIR Next of Kin [address] [facility] [address] + SOTO, BLAIR Next of Kin [address] [facility] [address] + SOTO, BLAIR Next of Kin [address] [facility] [address] + SOTO, BLAIR Next of Kin [address] [facility] [address] + SOTO, BLAIR Next of Kin [address] [facility] [address] + SOTO, BLAIR Next of Kin [address] [facility] [address] + SOTO, BLAIR Next of Kin [address] [place] [address], [place] [address] + SOTO, BLAIR Next of Kin [address] [place] [address], [place] [address] + SOTO, BLAIR Next of Kin [address] [place] [address], [place] [address] + SOTO, BLAIR Next of Kin [address] [place] [address], [place] [address] + Soto, Blair Next of Kin [address] [place] [address], [place] [address] + SOTO, BLAIR Next of Kin [address] [place] [address], [place] [address] + SOTO, BLAIR Next of Kin [address] [place] [address], [place] [address] + SOTO, BLAIR Next of Kin [address] [place] [address], [place] [address] + Care Team Providers Care Business Dean Name Role Phone LINDA KEYS Attending Unavailable KATIUSKA IRBYSON A Referring Unavailable BROWN, SYDNEY A Attending Unavailable BROWN, SYDNEY A Referring Unavailable BROWN, SYDNEY A Referring Unavailable SEDRICK LYONS Attending Unavailable GRACE HONEYCUTT Attending Unavailable BROWN, SYDNEY A Attending Unavailable BROWN, SYDNEY A Referring Unavailable BROWN, SYDNEY A Attending Unavailable BROWN, SYDNEY A Referring Unavailable BROWN, SYDNEY A Attending Unavailable MAHAMED, SYDNEY A Referring Unavailable LINDA KEYS Attending Unavailable SYDNEY IRBY A Attending Unavailable LINDA KEYS Attending Unavailable BROWN, SYDNEY A Referring Unavailable BROWN, SYDNEY A Referring Unavailable BROWN, SYDNEY A Referring Unavailable BROWN, SYDNEY A Attending Unavailable BROWN, SYDNEY A Referring Unavailable Hemjhonatan Linda Primary Care Unavailable Christian Carlos II Attending Unavaila ble Adamowicz II, Christian Li Admitting Unavaila Hannah Watkins Attending Unavailable Hannah Queen Admitting Unavailable NON STAFF Primary Care Unavailable HemLinda israel Referring Unavailable Hemjhonatan, Linda Primary Care Unavailable Breanna II, Christian Li Attending Unavaila ble Adamowicz II, Christian Li Admitting Unavaila ble NON STAFF [facility] Un[facility] Admitting Unavailable ITA DURAN Attending Unavailable EBBITT, TONY JAXON Attending Unavaila ble ITA DURAN Referring Unavailable PROBLEMS DATE TYPE CONDITION / CODE ATTENDING STATUS KORY Sarabjit 05/13/2025 Unknown 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 04/04/2025 Active PAF (paroxysmal atrial fibrillation) (HCC) / I48.0(ICD-10) ITA DURAN Active [facility] 02/10/2025 Unknown Lymphocytosis (symptomatic) / D72.820(ICD-10) Christian Carlos II Active [facility] 07/24/2024 Unknown Pain in left fin rachel(s) / M79.645(ICD-10) Hannah Queen Active [facility] PROCEDURES No Procedure Records Found RESULTS Omnisio BB SENDOUT Collected: 05/13/2025 1 0:33 AM Status: F Source: [facility] TYPE CODE TESTS RESULT OUT OF RANGE REFERENCE UNITS LAB ARCBB I Love QC BB Sendout Sent to [facility] Result Comment: Sent to [facility] for further testing. Final report to follow. PERFORMED BY: [facility] [address] [place] [address] PATHOLOGIST IT SERVICE DELIVERY MANAGER DANIELLE Reed Observed: 05/13/2025 12:00 AM Status: F Source: [facility] ----- ------- Specimen: [id number] Received: 05/16/25 Status: FRANCIS Banda Num: [id number] Spec Type: Impression Subm Dr: Christian Carlos II, DO Tissues: PATHBBK Procedures: PATHREVIEW ----- ------- Age/ Patient Sex Location Account Attending Physician ----- ------- Darius Valera 64/M [id number] Christian Carlos II DO ----- ------- SPEC NUM: [id number] RECD: 05/16/25-9 STATUS: FRANCIS BANDA NUM: [id number] MELONIE: 05/13/25- SUBM DR: Christian Carlos II, DO ENTERED: 05/16/25-1200 [facility] DR: SPEC TYPE: Impression DEPT: [place] ORDERED: [facility]VIEW [facility] Results Date Time Test Result Flag (u) Normal Range 05/12/25935 Ab Screen POSITIVE AB ID 05/12/25935 AUTO, Panaglutin, Warm Auto-Anti-D Auto-Anti-e Testing performed and reported by [facility]. Pathologist Review [place] [facility] reports detection of auto anti-D, auto anti-e, nonspecific reactivity, and probable warm autoantibody. Recommendation: The majority of ABO/Rh D compatible units will be incompatible with neat serum/plasma. ----- ------- ----- ------- Specimen: [id number] Received: 05/16/25 Status: FRANCIS Banda Num: [id number] Spec Type: Impression Subm Dr: Christian Carlos II, DO Tissues: PATHMANJITK Procedures: PATHREVIEW ----- ------- Patient: Darius Valera [id number] (Continued) ----- ------- Signed (signature on file) Vinay Cowan JR, MD 05/25/25 1100 US SPLEEN Observed: 05/12/2025 1:03 PM Status: COMPLETED Source: [facility] [address] [address] Ultrasound Report Signed Patient: Darius Valera MR#: [id number] 10 : 1960 Acct:[id number] Age/Sex: 64 / M ADM Date: 05/12/25 Loc: XT [facility] Dr: Christian Carlos II, DO Ordering Provider: Christian Carlos II, DO Date of Service: 05/12/25 US/US spleen: D72.820 - Lymphocytosis (symptomatic) Copies to: Christian Carlos II, DO Ultrasound of the spleen No priors. HISTORY: Lymphocytosis. Lymphocytic leukemia. Abdominal pain. The spleen measures 15.6 x 7.7 x 15.9 cm. No splenic lesion. No perisplenic abnormality. US/US spleen IMPRESSION: Splenomegaly. Impression dictated by: Joey Curry M.D. 05/12/2025 1:08 PM Dictation Location: [place] [address] Tech: Caterinamarietta Sandovaler Transcribed By: [facility] 05/12/25 1308 Dictated By: Joey Curry DO 05/12/25 1303 Signed By: <Electronically signed by Joey Curry DO in OV> 05/12/25 1308 TYPE AND SCREEN Collected: 05/12/2025 9:36 AM Status : F Source: [facility] TYPE CODE TESTS RESULT OUT OF RANGE REFERENCE UNITS LAB BTV Blood Type O Positive Result Comment: PERFORMED BY : [address] [address] PATHOLOGIST IT SERVICE DELIVERY MANAGER DANIELLE QUINONES M.D. LAB ABS Antibody Screen POSITIVE Result Comment: PERFORMED BY : [address] [place] [address] PATHOLOGIST IT SERVICE DELIVERY MANAGER DANIELLE QUINONES M.D. DIRECT SALO Collected: 05/12/2025 9:36 AM Status: F Source: [facility] TYPE CODE TESTS RESULT OUT OF RANGE REFERENCE UNITS LAB DATPOLY Polyspecific AHG Positive 3+ Abnorma l Alert Negative Result Comment: PERFORMED BY : [address] [address] PATHOLOGIST IT SERVICE DELIVERY MANAGER DANIELLE QUINONES M.D. DIRECT ANTIGLOBULIN TEST Collected: 9:36 AM Status: F Source: [facility] TYPE CODE TESTS RESULT OUT OF RANGE REFERENCE UNITS LAB DATIGGAHG IgG AHG Positive 4+ Abnormal Alert Negative COMPLEMENT GRACY Collected: 05/12/2025 9:36 AM Status: F Source: [facility] TYPE CODE TESTS RESULT OUT OF RANGE REFERENCE UNITS LAB C3B,C3D AHG Complement C3B,-C3D AHG Positive 1+ Abnormal Alert Negative Result Comment: PERFORMED BY : [facility] [address] [place] [address] PATHOLOGIST IT SERVICE DELIVERY MANAGER DANIELLE QUINONES M.D. ANTIBODY IDENTIFICATION Collected: 05/12/2025 9:36 AM Status: F Source: [facility] TYPE CODE TESTS RESULT OUT OF RANGE REFERENCE UNITS LAB ABID Antibody Identification WARM Result Comment: Auto-Anti-D Auto-Anti-e Testing performed and reported by [facility]. BLOOD BANK PATHOLOGIST REVIEW Collected: 05/12/2025 9 :36 AM Status: F Source: [facility] TYPE CODE TESTS RESULT OUT OF RANGE REFERENCE UNITS LAB BB PATH Blood Bank Pathologist Review Sent to Pathology Result Comment: PERFORMED BY : [facility] [address] [place] [address] PATHOLOGIST IT SERVICE DELIVERY MANAGER DANIELLE QUINONES M.D. COMPREHENSIVE METABOLIC PANEL Collected: 05/12/2025 9 :36 AM Status: F Source: [facility] TYPE CODE TESTS RESULT OUT OF RANGE REFERENCE UNITS LAB GLU Glucose 88 Normal 70-100 mg/dL Result Comment: Random Gluco se Reference Range is dependent on time and content of last meal. Glucose of more than 200 mg/dL in a nonstressed, ambulatory subject supports the diagnosis of Diabetes Mellitus. ADA recommended reference range LAB BUN Blood Urea Nitrogen 20 Normal 7-25 mg/d L LAB CREATT Creatinine 0.92 Normal 0.70-1.30 mg/dL LAB GFReNR Estimated GFR >60.0 LAB NA Sodium 142 Normal 136-145 mmol/L LAB K Potassium 3.6 Normal 3.5-5.1 mmol/L LAB CL Chloride 104 Normal 98-107 mmol/L LAB CO2 Carbon Dioxide 34.3 High 21.0-31.0 mmol/L LAB GAP Anion Gap 7.3 Normal 6.0-15.0 LAB CA Calcium 8.7 Normal 8.6-10.3 mg/dL LAB TP Total Protein 5.8 Low 6.4-8.9 g/dL LAB ALB Albumin Level 4.2 Normal 3.5-5.7 g/dL LAB GLOB Globulin 1.6 g/dL LAB AGRATIO Albumin/Globulin Ratio 2.6 LAB BILIT Bilirubin,Total 3.4 High 0.3-1.0 mg/dL Result Comment: Samples from patients who have taken Naproxen have shown spurious elevation in Total Bilirubin levels. A metabolite of Naproxen, O-desmethylnaproxen, has been shown to interfere with the Sathish-Federica method for measuring Total Bilirubin. LAB AST Aspartate Amino Transferase 28 Normal 13-39 U/L LAB ALT Alanine Aminotransferase 23 Normal 7-52 U/L LAB ALP Alkaline Phosphatase 69 Normal 34-104 U/L LAB CRCLPHA Creatinine Clr C alc Pharmacy 87.86 Performed By: #### HAPT, CMP , FE and TIBC, PORSCHE, [id number], SCAN CBC, ESR #### [facility] [address] IRON AND TIBC PROFILE Collected: 05/12/2025 9:36 AM Status: F Source: [facility] TYPE CODE TESTS RESULT OUT OF RANGE REFERENCE UNITS LAB FE Iron 139 Normal 50-212 ug/dL LAB TIBCT Total Iron Binding Capacity 301 Normal 255-450 ug/dL LAB FESAT% % Iron Saturation 46.2 Normal 20-50 % LAB TRANS Transferrin 215 Normal 203-362 mg/dL Performed By: #### HAPT, CMP , FE and TIBC, PORSCHE, [id number], SCAN CBC, ESR #### [facility] [address] [place] [id number] [place] FERRITIN Collected: 9:36 AM Status: F Source: [facility] TYPE CODE TESTS RESULT OUT OF RANGE REFERENCE UNITS LAB PORSCHE Ferritin 179.1 Normal 23.9-336.2 ng/mL Performed By: #### HAPT, CMP , FE and TIBC, PORSCHE, [id number], SCAN CBC, ESR #### [facility] [address] [place] [id number] [facility] VIT. B12/FOLATE PROFILE Collected: 04/25 9:36 AM Status: F Source: [facility] TYPE CODE TESTS RESULT OUT OF RANGE REFERENCE UNITS LAB B12 Vitamin B12 492 Normal 180-914 pg/mL LAB FOL Folate 19.3 >5.9 ng/mL Result Comment: Folate refer ence range: >5.9 ng/ml The WHO technical consultation on folate and vitamin b12 deficiencies has determined that folate concentrations less than 4 ng/ml are considered deficient. PERFORMED BY: [facility] [address] [place] [id number] PATHOLOGIST IT SERVICE DELIVERY MANAGER DANIELLE QUINONES M.D. Performed By: #### HAPT, CMP , FE and TIBC, PORSCHE, [id number], SCAN CBC, ESR #### [place] [id number] [facility] SCAN AND CBC Collected: 05/12/2025 9:36 AM Status: F Source: [facility] TYPE CODE TESTS RESULT OUT OF RANGE REFERENCE UNITS LAB WBC White Blood Count 24.7 High 4.1-10.5 [CFU] /mL LAB UNWBC Uncorrected WBC 24.7 High 4.1-10.5 10*3/uL LAB RBC Red Blood Count 2.39 Low 3.90-5.60 10*6/u L LAB HGB Hemoglobin 8.9 Low 13.0-17.0 g/dL LAB HCT Hematocrit 26.6 Low 38.8-50.0 % LAB MCV Mean Corpuscular Volume 111.3 High 83.5-101 fL LAB MCH Mean Corpuscular Hemoglobin 37.3 High 27.5-35.2 pg LAB MCHC Mean Corpuscular HGB Conc 33.5 Normal 32.5-35.6 g/dL LAB RDW Red Cell Distribution Width 16.6 High 12.0-14.8 % LAB PLT Platelet Count 178 Normal 150-450 10*3/uL LAB MPV Mean Platelet Volume 7.0 Normal 6.6-10.1 fL LAB NE% Neutrophils % (Auto) 22.4 . % LAB LY% Lymphocytes % (Auto) 74.6 . % LAB MO% Monocytes % (Auto) 2.6 . % LAB EO% Eosinophils % (Auto) 0.1 . % LAB BA% Basophils % (Auto) 0.3 . % LAB NRBC% NRBC% 0.1 Normal 0-0.5 /100{WBC } LAB NE# Neutrophils # (Auto) 5.5 Normal 1.8-7.7 10*3/uL LAB LY# Lymphocytes # (Auto) 18.5 High 1.00-4.8 10*3/uL LAB MO# Monocytes # (Auto) 0.6 Normal 0.0-0.8 10*3/uL LAB EO# Eosinophils # (Auto) 0.0 Normal 0.0-0.45 10*3/uL LAB BA# Basophils # (Auto) 0.1 Normal 0.0-0.2 10*3/uL LAB POLY Polychromasia Moderate LAB HYPO Hypochromasia Slight LAB ANISO Anisocytosis Slight LAB MICR Microcytosis Marked LAB TEAR Tear Drop Cells Slight LAB PLT EST Platelet Estimate Normal Normal LAB PLTM Platelet Morphology Normal Normal Performed By: #### HAPT, CMP , FE and TIBC, PORSCHE, [id number], SCAN CBC, ESR #### [address] ERYTHROCYTE SEDIMENTATION RATE Collected: 05/12/2025 9:36 AM Status: F Source: [facility] TYPE CODE TESTS RESULT OUT OF RANGE REFERENCE UNITS LAB ESR Erythrocyte Sedimentation Rate <1 Normal 0-19 Result Comment: PERFORMED BY : [place] [address] PATHOLOGIST IT SERVICE DELIVERY MANAGER DANIELLE QUINONES M.D. Performed By: #### HAPT, CMP , FE and TIBC, PORSCHE, [id number], SCAN CBC, ESR #### [place] [id number] [facility] HAPTOGLOBIN Collected: 9:36 AM Status: F Source: [facility] TYPE CODE TESTS RESULT OUT OF RANGE REFERENCE UNITS LAB HAPT Haptoglobin <30 Low 44-215 mg/dL Result Comment: PERFORMED BY : [place] [address] PATHOLOGIST IT SERVICE DELIVERY MANAGER DANIELLE QUINONES M.D. Performed By: #### HAPT, CMP , FE and TIBC, PORSCHE, [id number], SCAN CBC, ESR #### [facility] [address] [place] [address] [facility] ECG01 Observed: 04/04/2025 2:34 PM Status: F Source: [facility] Ventricular Rate : 76 BPM Atrial Rate : 76 BPM P-R Interval : 178 ms QRS Duration : 86 ms Q-T Interval : 378 ms QTC Calculation(Bazett) : 425 ms Calculated P [place] : 13 degrees Calculated R [place] : 0 degrees Calculated T [place] : 18 degrees NORMAL SINUS RHYTHM NORMAL ECG Confirmed by JADE DAS MD ([id number]) on 04/04/2025 5:11:38 PM NAME : DARIUS VALERA PID : [id number] : 1960 Gender : Male Race : ORD : Procedure Date : Apr 04 2025 14:34:56 Edit Date : Apr 04 2025 17:11:41 Diagnosis: NORMAL SINUS RHYTHM NORMAL ECG Confirmed by JADE DAS MD ([id number]) on 04/04/2025 5:11:38 PM Test Reason : Location : 192 : AVD Overread By : JADE DAS MD Edited By : JADE DAS MD Referred By : , Acquired by : , PROGRESS Observed: 04/04/2025 2:31 PM Status: COMPLETED Source: [facility] HNO ID: [id number] Author: BILL DURAN MD Service: ? Author Type: Physician Type: Progress Notes Filed: 04/04/2025 14:57 Note Text: [facility] Heart and Vascular Olivia Sissy Zepeda Department of Cardiovascular Medicine SECTION [...] male here today for follow up from [place]. Has h/o AF s/p ablation, HTN, DMITRY, tachycardia induced CMP, and CHF. On Eliquis, Nifedipine XL, Valsartan/HCTZ added on Doxazosin. Doxazocin increased to 2 mg but has been using only 1 mg daily. Continue to have BP spikes above 150s. Sotalol was discontinued. He followed before with a local information technology project manager Dr Hooks. Since last visit denies chest [...] information if obtained by others - Bill Duran M.D. PHYSICAL EXAMINATION: Last 3 Encounter BP [...] 195 lb 5.2 oz (88.6kg) BMI 26.49 kg/(m2). GENERAL: no acute distress HEENT:Atraumatic, normocephalic. NECK: [...] rare (<1.0%). Isolated VEs were occasional (1.4%, 04561), VE Couplets were rare (<1.0%, 56), and [...] Bystolic - S/p DCC by his local information technology project manager (Dr Castle) and subsequent ablation by EP (Dr Sena). - Negative outside stress EKG for ischemia 03/22/2020 - Update echo - May use one supplemental Mg OTC daily to try for leg cramps - Most recent renal fx reviewed This note was partially generated using Prowl voice recognition system, and there may be some incorrect words, spellings, and punctuation that were not noted in checking the note before saving. Some elements copied from my previous notes which have been updated as appropriate and reflect current medical decision making from today Bill Duran M.D., Miguel CONTACT INFORMATION: Shelbi Duran M.D., Miguel. 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 [address] CC: To use this Smartlink, specify the provider ID whose address you want to display, e.g., .KRISTINADDR[1 (where 1 is the provider ID). [1] [...] No current facility-administered medications for this visit. CNOV Observed: 04/04/2025 2:30 PM Status: COMPLETED Source: [facility] Office Visit ([place]) DARIUS VALERA ([id number]) 1960 M Date Time Provider Department 04/04/25 2:30 PM ITA DURAN During your visit today, we recorded the following information about you: Pulse Blood pressure Weight Height 76/minute 132/88 88.6 kg 1.829 m Ita Duran MD 04/04/2025 2:57 PM Signed [facility] Heart and Vascular Olivia Sissy Zepeda Department of Cardiovascular Medicine SECTION [...] male here today for follow up from [place]. Has h/o AF s/p ablation, HTN, DMITRY, tachycardia induced CMP, and CHF. On Eliquis, Nifedipine XL, Valsartan/HCTZ added on Doxazosin. Doxazocin increased to 2 mg but has been using only 1 mg daily. Continue to have BP spikes above 150s. Sotalol was discontinued. He followed before with a local information technology project manager Dr Hooks. Since last visit denies chest [...] information if obtained by others - Bill Duran M.D. PHYSICAL EXAMINATION: Last 3 Encounter BP [...] 195 lb 5.2 oz (88.6kg) BMI 26.49 kg/(m2). GENERAL: no acute distress HEENT:Atraumatic, normocephalic. NECK: [...] rare (<1.0%). Isolated VEs were occasional (1.4%, 40848), VE Couplets were rare (<1.0%, 56), and [...] Bystolic - S/p DCC by his local information technology project manager (Dr Castle) and subsequent ablation by EP (Dr Sena). - Negative outside stress EKG for ischemia 03/22/2020 - Update echo - May use one supplemental Mg OTC daily to try for leg cramps - Most recent renal fx reviewed This note was partially generated using Prowl voice recognition system, and there may be some incorrect words, spellings, and punctuation that were not noted in checking the note before saving. Some elements copied from my previous notes which have been updated as appropriate and reflect current medical decision making from today Bill Duran M.D., Miguel CONTACT INFORMATION: Shelbi Duran M.D., Miguel. 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 [address] CC: To use this Smartlink, specify the [...] No current facility-administered medications for this visit. 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 #:[id number]--[id number] ECHO [077385] Order #: [id number]: 1 FUTURE Valsartan-hydroCHLOROthiazide 320-25 mg per tabletTake 1 tablet by mouth once daily.Disp: 90 tabletRfl: 3 Prescriptions as of 04/04/2025 - Valsartan-hydroCHLOROthiazide 320-25 mg per tablet Take 1 tablet by mouth once daily. - NIFEdipine XL (ADALAT CC) 30 mg 24 hr tablet Take 1 tablet by mouth once daily. - nebivolol (BYSTOLIC) 5 mg tablet TAKE 1 TABLET BY MOUTH EVERY DAY - doxazosin (CARDURA) 4 mg tablet TAKE 1 TABLET BY MOUTH EVERYDAY AT BEDTIME - meloxicam (MOBIC) 15 mg tablet TAKE 1 TABLET (15 MG) BY MOUTH DAILY NEEDED FOR MILD PAIN - aspirin, enteric coated (ASPIRIN, ENTERIC COATED) 81 mg EC tablet Take 81 mg by mouth. - sildenafil citrate (VIAGRA ORAL) Take by mouth as needed. Problem List As Of Date 04/04/2025 Noted Resolved Atrial fibrillation, persistent (HCC) [I48.19] 09/27/2021 Benign essential HTN [I10] 09/27/2021 DMITRY (obstructive sleep apnea) [G47.33] 09/27/2021 PONV (postoperative nausea and vomiting) [R11.2*12/03/2021 Prescriptions ordered this encounter Disp Refills Start End VALSARTAN 320 MG-HYDROCHLOROTHIAZIDE* 90 t* 3 04/04/2025 Route: PO Sig: Take 1 tablet by mouth once daily. Medications Discontinued During This Encounter Prescriptions - Valsartan-hydroCHLOROthiazide 320-25 mg per tablet (Discontinued) Take 1 tablet by mouth once daily. Disposition: Return in about 1 year (around 04/04/2026). Follow-up and Disposition History for Encounter Date Provider Department Center 04/04/2025 [id number] DURAN Encounter Status:Closed by ITA DURAN on 04/04/25 LIPID PANEL, STANDARD Collected: 03/18/2025 8:26 AM Status: F Source: [facility] Order Comment: FASTING:YES FASTING: YES TYPE CODE TESTS RESULT OUT OF RANGE REFERENCE UNITS LAB [id number] CHOLESTEROL, TOTAL 140 Normal <200 mg/dL LAB [id number] HDL CHOLESTEROL 67 Normal > OR = 40 mg/dL LAB [id number] TRIGLYCERIDES 53 Normal <150 mg/dL LAB [id number] LDL-CHOLESTEROL 60 Normal mg/dL (calc) Result Comment: Reference ra nge: <100 Desirable range <100 mg/dL for primary prevention; <70 mg/dL for patients with CHD or diabetic patients with > or = 2 CHD risk factors. LDL-C is now calculated using the Hilario-Bridges calculation, which is a validated novel method providing better accuracy than the Friedewald equation in the estimation of LDL-C. Hilario SS et al. ARNULFO. 2013;310(19): 9381-9098 (http://education.Cognuse/faq/JYE854) LAB [id number] CHOL/HDLC RATIO 2.1 Normal <5.0 (calc) LAB [id number] NON HDL CHOLESTEROL 73 Normal <130 mg/dL (calc) Result Comment: For patients with diabetes plus 1 major ASCVD risk factor, treating to a non-HDL-C goal of <100 mg/dL (LDL-C of <70 mg/dL) is considered a therapeutic option. Performed By: #### 5363, 904 64, 61692, 962, 3825 #### [facility] [address], [address] [place] [phone] Leaf Sorter: Memo Marquis MD PSA, TOTAL Collected: 8:26 AM Status: F Source: [facility] TYPE CODE TESTS RESULT OUT OF RANGE REFERENCE UNITS LAB [id number] PSA, TOTAL 0.62 Normal < OR = 4.00 ng/mL Result Comment: The total PS A value from this assay system is standardized [...] or absence of disease. Performed By: #### 5363, 361 27, 89917, 496, 7600 #### [facility] [address], [address] [place] [phone] Leaf Sorter: Memo Marquis MD TSH W/REFLEX TO FT4 Collected: 03/18/20 8:26 AM Status: F Source: [facility] TYPE CODE TESTS RESULT OUT OF [facility] [id number] TSH W/REFLEX TO FT4 0.97 Normal 0.40-4.50 mIU/L Performed By: #### 5363, 361 27, 08373, 496, 7600 #### [facility] [address], [address] [place] [phone] Leaf Sorter: Memo Marquis MD VITAMIN D,25-OH,TOTAL,IA Collected: 8:26 AM Status: F Source: [facility] TYPE CODE TESTS RESULT OUT OF [facility] RE[facility] [id number] VITAMIN D,25-OH,TOT AL,IA 58 Normal 30-100 ng/mL Result Comment: Vitamin D St atus 25-OH Vitamin D: Deficiency: <20 ng/mL Insufficiency: 20 - 29 ng/mL Optimal: > or = 30 ng/mL For 25-OH Vitamin D testing on patients on D2-supplementation and patients for whom quantitation of D2 and D3 fractions is required, the QuestAssureD(TM) 25-OH VIT D, (D2,D3), LC/MS/MS is recommended: order code 31568 (patients >2yrs). See Note 1 Note 1 For additional information, please refer to [email or web address] guard [email or web address] Code Labs/faq/UGM332 (This link is being provided for informational/ educational purposes only.) Performed By: #### 5363, 361 27, 14016, 496, 7600 #### [facility] [address], [address] [place] [phone] Leaf Sorter: Memo Marquis MD HEMOGLOBIN A1C Collected: 8:26 AM Status: F Source: [facility] TYPE CODE TESTS RESULT OUT OF [facility] REFER[facility]ITS LAB [id number] HEMOGLOBIN A1c <4.2 Normal <5.7 % Result Comment: Verified by repeat analysis. For the [...] diagnosis of diabetes in children. According to [place] Diabetes Association (ADA) guidelines, hemoglobin A1c <7.0% represents optimal control in non- diabetic patients. Different metrics may apply to specific patient populations. Standards of Medical Care in Diabetes(ADA). Performed By: #### 5363, 361 27, 40603, 397, 2390 #### [facility] [place] [id number] [facility], [address] [place] [address] Leaf Sorter: Memo Marquis MD CT GUIDED BONE MARROW BX/ASPIR Observed: 02/10/2025 11:02 AM Status: COMPLETED Source: [place] [address] CT Scan Report Signed Patient: Darius Valera MR#: [id number] 10 : 1960 Acct:[id number] Age/Sex: 64 / M ADM Date: 02/10/25 Loc: CT Room: Type: [facility] Attending Dr: Christian Carlos II DO Copies [...] local anesthesia. Utilizing CT guidance, an 11-gauge RJMetrics biopsy needle was advanced into the right [...] Jr., D.O. 02/10/2025 11:08 AM Dictation Location: [place] [address] Transcribed By: [facility] 02/10/25 1108 Dictated By: Garcia Vanegas Jr, DO 02/10/25 1102 Signed By: <Electronically signed by Garcia Vanegas Jr, DO in OV> 02/10/25 1108 PATHOLOGY REQUEST FOR LAB REINA Collected: 02/10/2025 10:00 AM Status: F Source: [facility] TYPE CODE TESTS RESULT OUT OF R[facility] REFER[facility]ITS LAB [facility] Pathology Request for Lab Reina Result Comment: See report. Scanned copy available in EMR. PERFORMED BY: [place] [address] PATHOLOGIST IT SERVICE DELIVERY MANAGER DANIELLE QUINONES M.D. Performed By: #### [facility] #### [address] IMMUNOFIXATION,SERUM Collected: 025 9:15 AM Status: F Source: [facility] TYPE CODE TESTS RESULT OUT OF [facility] REFER[facility]ITS LAB JIGAR SERUM. Immunofixation, Serum Comment . Result Comment: No monoclona lity detected. LAB IGG Immunoglobulin G [phone] mg/dL LAB IGA Immunoglobulin A, Serum 146 61-437 mg/dL LAB IGM Immunoglobulin M, Serum 24 20-172 mg/dL Result Comment: Result confi rmed on concentration. Performed at: [address] [id number] Reel Operator: Chad Mccall PhD, Phone: [phone] Performed By: #### JIGAR SERUM , SPE, KAPPA #### [facility] , PROTEIN ELECTROPHORESIS, SERUM Collecte d: 02/10/2025 9:15 AM Status: F Source: [facility] TYPE CODE TESTS RESULT OUT OF R[facility] REFER[facility] UNITS LAB SPETP Total Protein, Serum 6.3 6.0-8.5 g/dL LAB SPEALB Albumin, Serum 4.0 2.9-4.4 g/dL LAB SPEA1G Wqlfb-1-Mrqd ulin 0.3 0.0-0.4 g/dL LAB SPEA2G Mqojc-2-Knni ulin 0.5 0.4-1.0 g/dL LAB SPEBG Beta Globulin 0.9 0.7-1.3 g/dL LAB SPEGG Gamma Globulin 0.7 0.4-1.8 g/dL LAB SPEMS M-Danny Not Observed Not Observed g/dL LAB SPEGLOB Globulin, Total 2.3 2.2-3.9 g/dL LAB SPEAG A/G Ratio 1.7 0.7-1.7 LAB SPENOTE SPE-Note Comment . Result Comment: Protein elec trophoresis scan will follow via computer, mail, or orthopedic coder delivery. Performed By: #### JIGAR SERUM , SPE, KAPPA #### [facility] , FREE K+L LT CHAINS, QN, S Collected: 02/10/2025 9:15 AM Status: F Source: [facility] TYPE CODE TESTS RESULT OUT OF [facility] REFER[facility]ITS LAB KAPPA LTC Free Seward Light Chains, S 16.3 3.3-19.4 mg/L LAB LAMBDA LTC Free Lambda Light Chains, S 10.6 5.7-26.3 mg/L LAB KL RATIO. Seward/Lambda Ratio, S 1.54 0.26-1.65 Result Comment: Performed at : - [facility] [address] [id number] Reel Operator: Chad Mccall PhD, Phone: [phone] PERFORMED BY: [place] [address] [place] [address] PATHOLOGIST IT SERVICE DELIVERY MANAGER DANIELLE QUINONES M.D. Performed By: #### JIGAR SERUM , SPE, KAPPA #### [facility] , COAGULATION PROFILE Collected: 02/10/2025 9:[address] atus: F Source: [facility] Order Comment: STAT FOR CT TYPE CODE TESTS RESULT OUT OF RANGE REFER[facility] UNITS LAB R PT Prothrombin Time 11.1 Normal 9.0-12.9 s Result Comment: A hematocrit value greater than 55% may lead to inaccurate results in coagulation testing. Patients having hematocrit values >55% require a special collection tube for coagulation studies. Please contact the laboratory at [phone] for redraw instructions. LAB INR INR 1.0 Result Comment: INR Therapeu tic Range A) Pre- and Peroperative OAT started two weeks before surgery. NOT HIP SURGERY: 1.5 - 2.5 HIP SURGERY: 2 - 3 B) Primary and secondary prevention of venous THROMBOSIS: 2 - 3 C) Active venous thrombosis, pulmonary embolism and prevention of recurrent venous thrombosis: 2 - 3 D) Prevention of arterial thromboembolism including patients with mechanical heart valves: 3 - 4.5 LAB PTT Partial Thromboplastin Time 30.1 Normal 25.1-36.5 s Result Comment: A hematocrit value greater than 55% may lead to inaccurate results in coagulation testing. Patients having hematocrit values >55% require a special collection tube for coagulation studies. Please contact the laboratory at [phone] for redraw instructions. PERFORMED BY: [place] [address] PATHOLOGIST IT SERVICE DELIVERY MANAGER DANIELLE QUINONES M.D. Performed By: #### PP #### [address] COMPREHENSIVE METABOLIC PANEL Collected: 02/10/2025 9 :15 AM Status: F Source: [facility] TYPE CODE TESTS RESULT OUT OF R[facility] REFER[facility]ITS LAB GLU Glucose 106 High 70-100 mg/dL Result Comment: Random Gluco se Reference Range is dependent on time and content of last meal. Glucose of more than 200 mg/dL in a nonstressed, ambulatory subject supports the diagnosis of Diabetes Mellitus. ADA recommended reference range LAB BUN Blood Urea Nitrogen 22 Normal 7-25 mg/d L LAB CREATT Creatinine 0.86 Normal 0.70-1.30 mg/dL LAB GFReNR Estimated GFR >60.0 LAB NA Sodium 140 Normal 136-145 mmol/L LAB K Potassium 3.8 Normal 3.5-5.1 mmol/L LAB CL Chloride 106 Normal 98-107 mmol/L LAB CO2 Carbon Dioxide 28.6 Normal 21.0-31.0 mmol/L LAB GAP Anion Gap 9.2 Normal 6.0-15.0 LAB CA Calcium 9.3 Normal 8.6-10.3 mg/dL LAB TP Total Protein 6.7 Normal 6.4-8.9 g/dL LAB ALB Albumin Level 4.7 Normal 3.5-5.7 g/dL LAB GLOB Globulin 2.0 g/dL LAB AGRATIO Albumin/Globulin Ratio 2.4 LAB BILIT Bilirubin,Total 1.9 High 0.3-1.0 mg/dL Result Comment: Samples from patients who have taken Naproxen have shown spurious elevation in Total Bilirubin levels. A metabolite of Naproxen, O-desmethylnaproxen, has been shown to interfere with the Sathish-Federica method for measuring Total Bilirubin. LAB AST Aspartate Amino Transferase 38 Normal 13-39 U/L LAB ALT Alanine Aminotransferase 31 Normal 7-52 U/L LAB ALP Alkaline Phosphatase 88 Normal 34-104 U/L LAB CRCLPHA Creatinine Clr [facility] Pharmacy 93.99 Result Comment: PERFORMED BY : [place] [address] PATHOLOGIST IT SERVICE DELIVERY MANAGER DANIELLE QUINONES M.D. Performed By: #### CMP, DIFF CBC #### [address] DIFF AND CBC Collected: 02/10/2025 9:15 AM Status: F Source: [facility] TYPE CODE TESTS RESULT OUT OF R[facility] REFER[facility]ITS LAB WBC White Blood Count 20.7 High 4.1-10.5 [CFU] /mL LAB UNWBC Uncorrected WBC 20.7 High 4.1-10.5 10*3/uL LAB RBC Red Blood Count 3.98 Normal 3.90-5.60 10*6/u L LAB HGB Hemoglobin 13.6 Normal 13.0-17.0 g/dL LAB HCT Hematocrit 38.6 Low 38.8-50.0 % LAB MCV Mean Corpuscular Volume 97.2 Normal 83.5-101 fL LAB MCH Mean Corpuscular Hemoglobin 34.2 Normal 27.5-35.2 pg LAB MCHC Mean Corpuscular HGB Conc 35.2 Normal 32.5-35.6 g/dL LAB RDW Red Cell Distribution Width 13.4 Normal 12.0-14.8 % LAB PLT Platelet Count 158 Normal 150-450 10*3/uL LAB MPV Mean Platelet Volume 7.4 Normal 6.6-10.1 fL Result Comment: PERFORMED BY : [place] [id number] PATHOLOGIST IT SERVICE DELIVERY MANAGER DANIELLE QUINONES M.D. LAB SEG Segmented Neutrophils 25 Low 50-70 % LAB LYMPH Lymphocytes 69 High 18-42 % LAB MON Monocytes 5 Normal 2-11 % LAB EOS Eosinophils 1 Normal 1-3 % LAB POLY Polychromasia Slight LAB POIK Poikilocytosis Slight LAB ANISO Anisocytosis Slight LAB TEAR Tear Drop Cells Slight LAB OVAL Ovalocytes Slight LAB PLT EST Platelet Estimate Normal Normal LAB PLTM Platelet Morphology Normal Normal Result Comment: PERFORMED BY : [place] [id number] PATHOLOGIST IT SERVICE DELIVERY MANAGER DANIELLE QUINONES M.D. Performed By: #### CMP, DIFF CBC #### [address] COMPREHENSIVE METABOLIC PANEL Collected: 01/13/2025 7 :10 AM Status: F Source: [facility] TYPE CODE TESTS RESULT OUT OF RANGE REFERENCE UNITS LAB GLU Glucose 95 Normal 70-100 mg/dL Result Comment: Random Gluco se Reference Range is dependent on time and content of last meal. Glucose of more than 200 mg/dL in a nonstressed, ambulatory subject supports the diagnosis of Diabetes Mellitus. ADA recommended reference range LAB BUN Blood Urea Nitrogen 14 Normal 7-25 mg/d L LAB CREATT Creatinine 0.95 Normal 0.70-1.30 mg/dL LAB GFReNR Estimated GFR >60.0 mL/Min LAB NA Sodium 141 Normal 136-145 mmol/L LAB K Potassium 4.1 Normal 3.5-5.1 mmol/L LAB CL Chloride 104 Normal 98-107 mmol/L LAB CO2 Carbon Dioxide 33.8 High 21.0-31.0 mmol/L LAB GAP Anion Gap 7.3 Normal 6.0-15.0 meq/L LAB CA Calcium 9.0 Normal 8.6-10.3 mg/dL LAB TP Total Protein 6.1 Low 6.4-8.9 g/dL LAB ALB Albumin Level 4.4 Normal 3.5-5.7 g/dL LAB GLOB Globulin 1.7 g/dL LAB AGRATIO Albumin/Globulin Ratio 2.6 LAB BILIT Bilirubin,Total 1.7 High 0.3-1.0 mg/dL Result Comment: Samples from patients who have taken Naproxen have shown spurious elevation in Total Bilirubin levels. A metabolite of Naproxen, O-desmethylnaproxen, has been shown to interfere with the Jenjoryik-Federica method for measuring Total Bilirubin. LAB AST Aspartate Amino Transferase 33 Normal 13-39 U/L LAB ALT Alanine Aminotransferase 30 Normal 7-52 U/L LAB ALP Alkaline Phosphatase 86 Normal 34-104 U/L LAB CRCLPHA Creatinine Clr C alc Pharmacy 85.09 Performed By: #### CMP, LDH, DIFF CBC #### [place] [id number] [facility] LDH LACTATE DEHYDROGENASE Collected: 01/13/2025 7:10 AM Status: F Source: [facility] TYPE CODE TESTS RESULT OUT OF RANGE REFERENCE UNITS LAB LDH LDH Lactate Dehydrogenase 310 High 140-271 U/L Result Comment: PERFORMED BY : [place] [address] PATHOLOGIST IT SERVICE DELIVERY MANAGER SUSAN FREGOSO M.D. Performed By: #### CMP, LDH, DIFF CBC #### [place] [id number] [facility] DIFF AND CBC Collected: 01/13/2025 7:10 AM Status: F Source: [facility] TYPE CODE TESTS RESULT OUT OF RANGE REFERENCE UNITS LAB WBC White Blood Count 16.9 High 4.1-10.5 10*3/uL LAB UNWBC Uncorrected WBC 16.9 High 4.1-10.5 10*3/uL LAB RBC Red Blood Count 4.15 Normal 3.90-5.60 10*6/u L LAB HGB Hemoglobin 13.8 Normal 13.0-17.0 g/dL LAB HCT Hematocrit 38.7 Low 38.8-50.0 % LAB MCV Mean Corpuscular Volume 93.1 Normal 83.5-101 fL LAB MCH Mean Corpuscular Hemoglobin 33.1 Normal 27.5-35.2 pg LAB MCHC Mean Corpuscular HGB Conc 35.6 Normal 32.5-35.6 g/dL LAB RDW Red Cell Distribution Width 14.0 Normal 12.0-14.8 % LAB PLT Platelet Count 136 Low 150-450 10*3/uL LAB MPV Mean Platelet Volume 7.3 Normal 6.6-10.1 fL LAB SEG Segmented Neutrophils 39 Low 50-70 % LAB BAND Band Neutrophils 2 Normal 0-5 % LAB LYMPH Lymphocytes 48 High 18-42 % LAB REACTIVE LYMPHS Reactive Lymphocytes 2 Normal 0-12 % LAB MON Monocytes 6 Normal 2-11 % LAB EOS Eosinophils 4 High 1-3 % LAB RM RBC Morphology Normal Normal LAB PLT EST Platelet Estimate Decreased Normal LAB GPLT Giant Platelet Tally 1 /100{WBC} LAB PLTM Platelet Morphology Normal Normal Result Comment: PERFORMED BY : [place] [address] PATHOLOGIST IT SERVICE DELIVERY MANAGER SUSAN FREGOSO M.D. Performed By: #### CMP, LDH, DIFF CBC #### [facility] [address] [place] [address] FLOWCYTOMETRY NEOGENOMIC Collected: 01/13/2025 6:57 A M Status: F Source: [facility] TYPE CODE TESTS RESULT OUT OF RANGE REFERENCE UNITS LAB FLOW NEOGENOMIC Flowcytometry Neogenomic Result Comment: See report. Scanned copy available in EMR. PERFORMED BY: [place] [address] PATHOLOGIST IT SERVICE DELIVERY MANAGER DANIELLE QUINONES M.D. Performed By: #### FLOW NEOG ENOMIC #### [facility] [address] [place], [place] [id number] [facility] EMPLOYEE PSA TOTAL Collected: 8:20 AM Status: F Source: [facility] TYPE CODE TESTS RESULT OUT OF RANGE REFERENCE UNITS LAB PSA TOTAL EMP PSA Total (School Admissions Health Orders) 0.650 Normal 0.000-4.000 ng/mL Result Comment: Serial tumor marker results determined by assays using different manufacturers or methods may not be comparable. [facility] medical esthetician and method: ZuznowEL DXI, CHEMILUMINESCENT IMMUNOASSAY. PERFORMED BY: [address] [address] PATHOLOGIST IT SERVICE DELIVERY MANAGER SUSAN FREGOSO M.D. Performed By: #### LIPID, EM P PSA, CMP, CHC CBC, A1C WT eA #### [facility] [address] [place] [id number] [facility] COMPREHENSIVE METABOLIC PANEL Collected: 11/30/2024 8 :20 AM Status: F Source: [facility] TYPE CODE TESTS RESULT OUT OF RANGE REFERENCE UNITS LAB GLU Glucose 91 Normal 70-100 mg/dL Result Comment: Random Gluco se Reference Range is dependent on time and content of last meal. Glucose of more than 200 mg/dL in a nonstressed, ambulatory subject supports the diagnosis of Diabetes Mellitus. ADA recommended reference range LAB BUN Blood Urea Nitrogen 15 Normal 7-25 mg/d L LAB CREATT Creatinine 0.81 Normal 0.70-1.30 mg/dL LAB GFReNR Estimated GFR >60.0 mL/Min LAB NA Sodium 142 Normal 136-145 mmol/L LAB K Potassium 3.8 Normal 3.5-5.1 mmol/L LAB CL Chloride 104 Normal 98-107 mmol/L LAB CO2 Carbon Dioxide 34.1 High 21.0-31.0 mmol/L LAB GAP Anion Gap 7.7 Normal 6.0-15.0 meq/L LAB CA Calcium 9.5 Normal 8.6-10.3 mg/dL LAB TP Total Protein 6.3 Low 6.4-8.9 g/dL LAB ALB Albumin Level 4.3 Normal 3.5-5.7 g/dL LAB GLOB Globulin 2.0 g/dL LAB AGRATIO Albumin/Globulin Ratio 2.2 LAB BILIT Bilirubin,Total 1.0 Normal 0.3-1.0 mg/dL LAB AST Aspartate Amino Transferase 29 Normal 13-39 U/L LAB ALT Alanine Aminotransferase 28 Normal 7-52 U/L LAB ALP Alkaline Phosphatase 85 Normal 34-104 U/L Result Comment: PERFORMED BY : [facility] [address] [place] [address] PATHOLOGIST IT SERVICE DELIVERY MANAGER SUSAN FREGOSO M.D. Performed By: #### LIPID, EM P PSA, CMP, CHC CBC, A1C WT eA #### [facility] [address] [place] [address] [facility] COMPLETE BLOOD COUNT NO REFLEX Collected: 11/30/2024 8:20 AM Status: F Source: F [facility] TYPE CODE TESTS RESULT OUT OF RANGE REFERENCE UNITS LAB WBC White Blood Count 19.5 High 4.1-10.5 10*3/uL LAB UNWBC Uncorrected WBC 19.5 High 4.1-10.5 10*3/uL LAB RBC Red Blood Count 4.67 Normal 3.90-5.60 10*6/u L LAB HGB Hemoglobin 14.9 Normal 13.0-17.0 g/dL LAB HCT Hematocrit 43.3 Normal 38.8-50.0 % LAB MCV Mean Corpuscular Volume 92.8 Normal 83.5-101 fL LAB MCH Mean Corpuscular Hemoglobin 31.8 Normal 27.5-35.2 pg LAB MCHC Mean Corpuscular HGB Conc 34.3 Normal 32.5-35.6 g/dL LAB RDW Red Cell Distribution Width 13.2 Normal 12.0-14.8 % LAB PLT Platelet Count 121 Low 150-450 10*3/uL LAB MPV Mean Platelet Volume 8.6 Normal 6.6-10.1 fL LAB NE% Neutrophils % (Auto) 22.4 . % LAB LY% Lymphocytes % (Auto) 74.0 . % LAB MO% Monocytes % (Auto) 2.3 . % LAB EO% Eosinophils % (Auto) 1.1 . % LAB BA% Basophils % (Auto) 0.2 . % LAB NRBC% NRBC% 0.2 Normal 0-0.5 /100{WBC} LAB NE# Neutrophils # (Auto) 4.4 Normal 1.8-7.7 10*3/uL LAB LY# Lymphocytes # (Auto) 14.4 High 1.00-4.8 10*3/uL LAB MO# Monocytes # (Auto) 0.4 Normal 0.0-0.8 10*3/uL LAB EO# Eosinophils # (Auto) 0.2 Normal 0.0-0.45 10*3/uL LAB BA# Basophils # (Auto) 0.0 Normal 0.0-0.2 10*3/uL Result Comment: PERFORMED BY : [facility] [place] [address] PATHOLOGIST IT SERVICE DELIVERY MANAGER SUSAN FREGOSO M.D. Performed By: #### LIPID, EM P PSA, CMP, CHC CBC, A1C WTH eA #### [facility] [address] [place] [address] [facility] A1C WITH ESTIMATED AVERAGE GLU Collected: 11/30/2024 8:20 AM Status: F Source: F [facility] TYPE CODE TESTS RESULT OUT OF RANGE REFERENCE UNITS LAB .A1C Hemoglobin A1C 4.9 Normal 4.3-5.6 % Result Comment: Increased ri sk for diabetes: 5.7 - 6.4 diabetes: >6.4 glycemic control for adults with diabetes: <7.0 LAB eAG Estimated Average Glucose 94 mg/dL Result Comment: PERFORMED BY : [place] [address] PATHOLOGIST IT SERVICE DELIVERY MANAGER SUSAN FREGOSO M.D. Performed By: #### LIPID, EM P PSA, CMP, CHC CBC, A1C [facility] eA #### [facility] [address] [place] [address] [facility] LIPID PANEL Collected: 11/30/2024 8:20 AM Status: F Source: [facility] TYPE CODE TESTS RESULT OUT OF RANGE REFERENCE UNITS LAB CHOL Cholesterol 169 Normal 140-200 mg/dL Result Comment: Chol less th an 200 mg/dl low risk Chol 201-239 mg/dl borderline risk Chol 240 mg/dl and greater high risk LAB HDL HDL Cholesterol 59 Normal 23-92 mg/dL Result Comment: HDL CHOL ATP -III CLASSIFICATION Cardiovascular Risk HDL > or equal to 60 mg/dL LOW HDL < 40 mg/dL HIGH LAB TRIG W REF Triglyceride w/Reflex 86 Normal 0-149 mg/dL Result Comment: TRIG ATP III CLASSIFICATION TRIG less than 150 mg/dL Normal TRIG 150-199 mg/dL Borderline high TRIG 200-500 mg/dL High TRIG greater than 500 mg/dL Very high Standard traceable to the Center for Disease Conrtrol and Prevention (CDC) test method. LAB LDLC LDL Cholesterol,Calc ulated 93 Normal 0-100 mg/dL Result Comment: LDL ATP III CLASSIFICATION LDL less than 100 mg/dL Optimal LDL 100-129 mg/dL Near or above optimal LDL 130-159 mg/dL Borderline high LDL 160-189 mg/dL High LDL greater than 189 mg/dL Very high LAB VLDL VLDL CHOLESTEROL 17 mg/dL LAB CHLHDL Chol/HDL Ratio 2.9 <5.0 Result Comment: PERFORMED BY : [facility] [address] [place] [address] PATHOLOGIST IT SERVICE DELIVERY MANAGER SUSAN FREGOSO M.D. Performed By: #### LIPID, EM P PSA, CMP, CHC CBC, A1C WTH eA #### [facility] [address] [place] [id number] [facility] COMPREHENSIVE METABOLIC PANEL Collected: 11/12/2024 6 :06 AM Status: F Source: [facility] TYPE CODE TESTS RESULT OUT OF RANGE REFERENCE UNITS LAB GLU Glucose 93 Normal 70-100 mg/dL Result Comment: Random Gluco se Reference Range is dependent on time and content of last meal. Glucose of more than 200 mg/dL in a nonstressed, ambulatory subject supports the diagnosis of Diabetes Mellitus. ADA recommended reference range LAB BUN Blood Urea Nitrogen 17 Normal 7-25 mg/d L LAB CREATT Creatinine 0.83 Normal 0.70-1.30 mg/dL LAB GFReNR Estimated GFR >60.0 mL/Min LAB NA Sodium 142 Normal 136-145 mmol/L LAB K Potassium 4.1 Normal 3.5-5.1 mmol/L LAB CL Chloride 106 Normal 98-107 mmol/L LAB CO2 Carbon Dioxide 31.9 High 21.0-31.0 mmol/L LAB GAP Anion Gap 8.2 Normal 6.0-15.0 meq/L LAB CA Calcium 8.8 Normal 8.6-10.3 mg/dL LAB TP Total Protein 6.3 Low 6.4-8.9 g/dL LAB ALB Albumin Level 4.4 Normal 3.5-5.7 g/dL LAB GLOB Globulin 1.9 g/dL LAB AGRATIO Albumin/Globulin Ratio 2.3 LAB BILIT Bilirubin,Total 1.1 High 0.3-1.0 mg/dL LAB AST Aspartate Amino Transferase 27 Normal 13-39 U/L LAB ALT Alanine Aminotransferase 28 Normal 7-52 U/L LAB ALP Alkaline Phosphatase 89 Normal 34-104 U/L LAB CRCLPHA Creatinine Clr C alc Pharmacy 97.39 Performed By: #### CMP, LDH, SCAN CBC #### [facility] [address] [place] [address] [facility] LDH LACTATE DEHYDROGENASE Collected: 11/12/2024 6:06 AM Status: F Source: [facility] TYPE CODE TESTS RESULT OUT OF RANGE REFERENCE UNITS LAB LDH LDH Lactate Dehydrogenase 242 Normal 140-271 U/L Result Comment: PERFORMED BY : [facility] [address] [place] [id number] PATHOLOGIST IT SERVICE DELIVERY MANAGER SUSAN FREGOSO M.D. Performed By: #### CMP, LDH, SCAN CBC #### [facility] [address] [place] [id number] [facility] SCAN AND CBC Collected: 11/12/2024 6:06 AM Status: F Source: [facility] TYPE CODE TESTS RESULT OUT OF RANGE REFERENCE UNITS LAB WBC White Blood Count 17.4 High 4.1-10.5 10*3/uL LAB UNWBC Uncorrected WBC 17.4 High 4.1-10.5 10*3/uL LAB RBC Red Blood Count 4.56 Normal 3.90-5.60 10*6/u L LAB HGB Hemoglobin 14.7 Normal 13.0-17.0 g/dL LAB HCT Hematocrit 41.8 Normal 38.8-50.0 % LAB MCV Mean Corpuscular Volume 91.7 Normal 83.5-101 fL LAB MCH Mean Corpuscular Hemoglobin 32.2 Normal 27.5-35.2 pg LAB MCHC Mean Corpuscular HGB Conc 35.1 Normal 32.5-35.6 g/dL LAB RDW Red Cell Distribution Width 12.9 Normal 12.0-14.8 % LAB PLT Platelet Count 136 Low 150-450 10*3/uL LAB MPV Mean Platelet Volume 7.9 Normal 6.6-10.1 fL LAB NE% Neutrophils % (Auto) 20.6 . % LAB LY% Lymphocytes % (Auto) 75.9 . % LAB MO% Monocytes % (Auto) 2.1 . % LAB EO% Eosinophils % (Auto) 1.0 . % LAB BA% Basophils % (Auto) 0.4 . % LAB NRBC% NRBC% 0.2 Normal 0-0.5 /100{WBC} LAB NE# Neutrophils # (Auto) 3.6 Normal 1.8-7.7 10*3/uL LAB LY# Lymphocytes # (Auto) 13.2 High 1.00-4.8 10*3/uL LAB MO# Monocytes # (Auto) 0.4 Normal 0.0-0.8 10*3/uL LAB EO# Eosinophils # (Auto) 0.2 Normal 0.0-0.45 10*3/uL LAB BA# Basophils # (Auto) 0.1 Normal 0.0-0.2 10*3/uL LAB RM RBC Morphology Normal Normal LAB PLT EST Platelet Estimate Decreased Normal LAB PLTM Platelet Morphology Normal Normal Result Comment: PERFORMED BY : [place] [address] PATHOLOGIST IT SERVICE DELIVERY MANAGER SUSAN FREGOSO M.D. Performed By: #### CMP, LDH, SCAN CBC #### [facility] [address] PROGRESS Observed: 09/21/2024 4:30 PM Status: COMPLETED Source: [facility] HNO ID: [id number] Author: TONY ARMSTRONG PA-C Service: ? 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 Isolated VEs were occasional (1.4%, 29027), VE Couplets were rare (<1.0%, 56), and [...] '20 - cont ASA RTC with Dr. Duran in 6 months CONTACT INFORMATION: Tony Armstrong PA-C Cardiology [address] [facility] [address] Dept: [phone] Dept CNOV Observed: 09/21/2024 4:30 PM Status: COMPLETED Source: [facility] Office Visit (GERSON) DARIUS VALERA ([id number]) 1960 M Date Time Provider Department 09/21/24 4:30 PM TONY ARMSTRONG During your visit today, we recorded the following information about you: Blood pressure Weight Height 142/82 93 kg 1.829 m Tony Armstrong PA-C 09/21/2024 5:03 PM Signed [facility] Department of Cardiovascular Medicine SECTION [...] rare (<1.0%). Isolated VEs were occasional (1.4%, [id number]), VE Couplets were rare (<1.0%, 56), and [...] '20 - cont ASA RTC with Dr. Duran in 6 months CONTACT INFORMATION: Tony Armstrong PA-C Cardiology [id number] [facility] [address] Dept: [phone] Dept Tony Armstrong PA-C 09/21/2024 4:57 PM Signed Please schedule appt with Dr. Duran in 6 months Referring Provider: ITA DURAN [[id number]] Allergies As of Date: 09/21/2024 (No Known Allergies) Date Reviewed: 09/21/2024 Reviewed by: Donte Iraheta II, RN - Fully Assessed Reason for Visit: Follow Up [171] Primary Visit Diagnosis:Primary hypertension [I10] Other Visit Diagnoses:PAF (paroxysmal atrial fibrillation) (HCC) [I48.0] Coronary artery calcification [I25.10] Prescriptions as of 09/21/2024 - doxazosin (CARDURA) 4 mg tablet TAKE 1 TABLET BY MOUTH EVERYDAY AT BEDTIME - meloxicam (MOBIC) 15 mg tablet TAKE 1 TABLET (15 MG) BY MOUTH DAILY NEEDED FOR MILD PAIN - Valsartan-hydroCHLOROthiazide 320-25 mg per tablet Take 1 tablet by mouth once daily. - NIFEdipine XL (ADALAT CC) 30 mg 24 hr tablet take one tablet by mouth daily - nebivolol (BYSTOLIC) 5 mg tablet Take 1 tablet by mouth once daily. - aspirin, enteric coated (ASPIRIN, ENTERIC COATED) 81 mg EC tablet Take 81 mg by mouth. - sildenafil citrate (VIAGRA ORAL) Take by mouth as needed. Problem List As Of Date 09/21/2024 Noted Resolved Atrial fibrillation, persistent (HCC) [I48.19] 09/27/2021 Benign essential HTN [I10] 09/27/2021 DMITRY (obstructive sleep apnea) [G47.33] 09/27/2021 PONV (postoperative nausea and vomiting) [R11.2*12/03/2021 Other instructions from your clinician: Please schedule appt with Dr. Duran in 6 months Disposition: Return in about 6 months (around 03/21/2025) for Please schedule appt with Dr. Duran in 6 months. Follow-up and Disposition History for Encounter Date Provider Department Center 09/21/2024 [id number]-LAHDRZTONY ARMSTRONG*GERSON Mcnulty Encounter Status:Closed by TONY ARMSTRONG on 09/21/24 MR HAND LEFT WO IV CONTRAST Observed: 07/30/2024 3:47 PM Status: F Source: [facility] EP[facility] Order Comment: No to all MRI Questions EXAM/TECHNIQUEMR HAND LEFT W O IV CONTRAST, focused to the fourth digit. [...] intact. ELECTRONICALLY SIGNED BY: Titi Hope MD XR ORBITS 1 TO 3 VIEWS Observed: 024 3:32 PM Status: F Source: [facility] XR ORBITS 1 TO 3 VIEWS/MRI C LEARANCE Reason for exam: MRI screening Prior comparative studies: None Findings: Screening Orbits: No radiopaque foreign bodies are seen to overlie the orbits on either side. Metallic dental appliance is noted. XR FINGER LT 3RD DIGIT Observed: 024 11:24 AM Status: COMPLETED Source: [facility] [place] [address] XRay Report Signed Patient: Darius Valera MR#: [id number] 10 : 1960 Acct:[id number] Age/Sex: 63 / M ADM Date: 07/24/24 Loc: XDUCLY Room: Type: [facility] Attending Dr: Hannah Queen APRN Copies to: [...] Donte Quevedo M.D.07/24/2024 11:26 AM Dictation Location: [facility] Transcribed By: [facility] 07/24/24 1126 Dictated By: Donte Quevedo II, MD 07/24/24 1124 Signed By: <Electronically signed by Donte Quevedo II, MD in OV> 07/24/24 1126 ALLERGIES DATE TYPE / CODE NAME / CODE REACTION SEVERITY SOURCE 05/13/2025 Drug Allergy/[id number] 2(SNOMED CT) No Known Allergies/[id number] (RXNORM) Unknown [facility] Drug Class/618213150( SNOMED CT) NO KNOWN ALLERGIES [facility] ENCOUNTERS ADMIT/DISCHARGE ACCOUNT NUMBER ADMITTING ENCOUNTER CLASS LOCATION SOURCE 05/13/2025 [id number] [facility] 04/04/2025/04/04/20 [id number] [facility] ding:CAAV [facility] 03/01/2025/03/01/20 25 [id number] Ambulatory Building:[facility] 02/10/2025/02/11/20 25 [id number] [facility] 12/09/2024/12/10/19 25 [id number] Ambulatory Building:NOM S [facility] 11/30/2024/12/01/19 25 [id number] Russell [facility]anda [facility] 11/09/2024/11/10/19 25 [id number] [facility] 10/28/2024/10/29/19 25 [id number] Ambulatory Building:NOM S ORTHO [facility] 09/30/2024/09/30/19 25 [id number] Ambulatory Building:NOM [facility] 09/30/2024/09/30/19 25 [id number] Ambulatory Building:NOM S ORTHO [facility] EPIC 09/30/2024/09/30/19 25 [id number] Ambulatory Building:NOM S [facility]TH[facility] 09/30/2024/09/30/19 25 [id number] Ambulatory Building:NOM S ORTHO [facility] 09/21/2024/09/21/19 25 [id number] [facility] 09/15/2024/09/15/19 25 [id number] Ambulatory Building:CIF AMMED [facility] 08/24/2024/08/24/20 24 [id number] Ambulatory Building:NOM S ORTHO [facility] 07/30/2024/07/30/20 24 [id number] Ambulatory Building:FNR MR [facility] 07/29/2024/07/29/20 24 [id number] Ambulatory Building:FNR IMG [facility] 07/28/2024/07/28/20 24 [id number] Ambulatory Building:NOM SSWSIMG [facility] 07/27/2024/07/27/20 24 [id number] Ambulatory Building:NOM S ORTHO [facility] 07/24/2024/07/24/20 24 [id number] Hannah Queen [facility] 06/15/2024/06/15/20 24 [id number] Ambulatory Building:NOM S ORTHO [facility] 06/11/2024/06/11/20 24 [id number] Ambulatory Building:[facility] 06/10/2024/06/10/20 24 [id number] Ambulatory Building:CIF AMMED [facility] EPIC PAYERS ENCOUNTER GUARANTOR PAYER SUBSCRIBER SOURCE 05/13/2025 [place] [address]Fmt: (PD) Primary Insurance:MedicarePoli cy Number: [id number] Date:2024-01-08 Darius Honeycutt: [id number] [place] [address]Sfv: () [facility] 05/13/2025 Secondary Insurance:[facility] ClaimsPolicy Number: [id number] Date:2024-01-08 Darius ValeraB: [id number] [place] [address]Fyl: (HP) [facility] 05/13/2025 Tertiary Insurance:Self PayPolicy Number: Effective Date:2025-05-13 [facility] 04/04/2025 Primary Insuranc e:MMO MHSPolicy Number: [id number] Date:1258-22-70Tjfc Name:Esther VALERAB: [id number] GUALLPAGURMEET DOLANDAY[facility] [address] [facility] 03/01/2025 DARIUS VALERAB: [place] [id number]: (HP) () Primary Insurance:MEDICAL MUTUALPolicy Number: [id number] Date:2022-08-26 DARIUS VALERAB: [id number] [place] [address] [facility] 02/10/2025 [place] [address]Oym: () Primary Insurance:[facility] ServicesPolicy Number: [id number] Date:[id number] [address]QJRTHIZKJ, [place] [address]NV: Darius ValeraB: [id number] [place] [address]Ahg: (HP) [facility] 02/10/2025 Secondary Insurance:Self PayPolicy Number: Effective Date:2025-01-25 NOT G[address]K [facility] 12/09/2024 DARIUS VALERADOB: [place] [address]Qhp: (HP) (WP) Primary Insurance:MEDICAL MUTUALPolicy Number: [id number] Date:2022-08-26 DARIUS VALERADOB: [id number] [place] [address] [facility] 11/30/2024 Darius Guallpa [facility] [address]Fzb: (HP) Primary Insurance:Self PayPolicy Number: Effective Date:2024-11-26 [facility] 11/09/2024 DARIUS LORENZOB: [place] [id number]: (HP) (WP) Primary Insurance:MEDICAL MUTUALPolicy Number: [id number] Date:2022-08-26 DARIUS LORENZOB: [id number] [place] [address] [facility] 10/28/2024 DARIUS VALERADOB: [place] [address]Uey: (HP) (WP) Primary Insurance:MEDICAL MUTUALPolicy Number: [id number] Date:2022-08-26 DARIUS VALERADOB: [id number] [place] [address] [facility] 09/30/2024 DARIUS VALERADOB: [place] [address]Ixx: (HP) (WP) Primary Insurance:MEDICAL MUTUALPolicy Number: [id number] Date:2022-08-26 DARIUS LORENZOB: [id number] [facility] [place] [address] [facility] 09/30/2024 DARIUS VALERADOB: [place] [address]Qye: (HP) (WP) Primary Insurance:MEDICAL MUTUALPolicy Number: [id number] Date:2022-08-26 DARIUS VALERADOB: [id number] [place] [address] [facility] 09/30/2024 DARIUS VALERADOB: [place] [address]Bso: (HP) (WP) Primary Insurance:MEDICAL MUTUALPolicy Number: [id number] Date:2022-08-26 DARIUS VALERADOB: [id number] [place] [address] [facility] 09/30/2024 DARIUS VALERADOB: [place] [address]Oep: (HP) (WP) Primary Insurance:MEDICAL MUTUALPolicy Number: [id number] Date:2022-08-26 DARIUS VALERADOB: [id number] [place] [id number] [facility] 09/21/2024 Primary Insuranc e:MMO SPolicy Number: [id number] Date:0381-33-77Noqh Name:Esther HONEYCUTT: [id number] [place] [address] [facility] 09/15/2024 DARIUS VALERADOB: [place] [address]Wxj: (HP) (WP) Primary Insurance:MEDICAL MUTUALPolicy Number: [id number] Date:2022-08-26 DARIUS VALERADOB: [id number] [place] [address] [facility] 08/24/2024 DARIUS [place]ERADOB: [place] [address]Pbm: (HP) (WP) Primary Insurance:MEDICAL MUTUALPolicy Number: [id number] Date:2022-08-26 DARIUS VALERADOB: [id number] [place] [address] [facility] 07/30/2024 DARIUS VALERADOB: [place] [address]Tel: (HP) (WP) Primary Insurance:MEDICAL MUTUALPolicy Number: [id number] Date:2022-08-26 DARIUS VALERADOB: [id number] [place] [id number] [facility] 07/29/2024 DARIUS VALERADOB: [place] [address]Gua: (HP) (WP) Primary Insurance:MEDICAL MUTUALPolicy Number: [id number] Date:2022-08-26 DARIUS AVLERADOB: [id number] [place] [address] [facility] 07/28/2024 DARIUS VALERADOB: [place] [address]Grc: (HP) (WP) Primary Insurance:MEDICAL MUTUALPolicy Number: [id number] Date:2022-08-26 DARIUS VALERADOB: [id number] [place] [address] [facility] 07/27/2024 DARIUS VALERADOB: [place] [address]Mqy: (HP) (WP) Primary Insurance:MEDICAL MUTUALPolicy Number: [id number] Date:2022-08-26 DARIUS VALERADOB: [id number] [place] [address] [facility] 07/24/2024 [place] [address]Jql: (HP) Primary Insurance:[facility] Health ServicesPolicy Number: [id number] Date:5827-36-55TS [address] [address]BQCWJMXMG, [place] [address]FU: Darius ValeraDOB: [id number] [place] [address]Cgt: (HP) [facility] 07/24/2024 Secondary Insurance:Self PayPolicy Number: Effective Date:2024-07-24 [facility] 06/15/2024 DARIUS VALERADOB: [place] [address]Qzk: (HP) (WP) Primary Insurance:MEDICAL MUTUALPolicy Number: [id number] Date:2022-08-26 DARIUS VALERADOB: [id number] [place] [address] [facility] 06/11/2024 DARIUS VALERADOB: [place] [address]Kaa: (HP) (WP) Primary Insurance:MEDICAL MUTUALPolicy Number: [id number] Date:2022-08-26 DARIUS Giles SHAJI: [id number] [place] [address] [facility] 06/10/2024 DARIUS Giles SHAJI: [id number] [place] [address]Nsb: (HP) (WP) Primary Insurance:MEDICAL MUTUALPolicy Number: [id number] Date:2022-08-26 DARIUS Giles MAURAB: [id number] [place] [address] [facility]
[2025-05-26 06:43] LABS: Hematocrit 33.5 % (42.0-54.0); Hemoglobin 11.3 g/dL (14.0-18.0); Mean Corpuscular HGB Conc 33.7 g/dL (29.9-35.2); Mean Corpuscular Hemoglobin 36.3 pg (25.9-34.0); Mean Corpuscular Volume 107.7 fL (80.0-94.0); Platelet Count 120 10^3/uL (150-450); Red Blood Count 3.11 10^6/uL (4.70-6.10); White Blood Count 24.4 10^3/uL (4.0-11.0)
[2025-05-26 07:07] LABS: Atypical Lymphocytes % Manual 34.0 %; Atypical Lymphocytes Abs Man 8.29; Band Neutrophils Absolute 0.0 10^3/uL (0.0-0.3); Basophils Abs Manual 0.00 10^3/uL (0.00-0.10); Basophils Percent Manual 0.0 % (0.2-2.0); Eosinophils Absolute Manual 0.00 10^3/uL (0.00-0.70); Eosinophils Percent Manual 0.0 % (0.9-7.0); Lymphocytes Absolute Manual 10.24 10^3/uL (1.20-3.80); Lymphocytes Percent Manual 42.0 % (20.5-60.0); Monocytes Absolute Manual 0.24 10^3/uL (0.30-0.80); Monocytes Percent Manual 1.0 % (1.7-12.0); Segmented Neut Absolute Manual 5.61 10^3/uL (1.4-6.5); Segmented Neutrophils % Manual 23.0 (43.0-75.0); Smudge Cells SEEN
[2025-05-26 08:58] LABS: Alanine Aminotransferase 51 U/L (16-63); Albumin Globulin Ratio 1.6; Albumin Level 3.5 g/dL (3.4-5.0); Alkaline Phosphatase 64 U/L (46-116); Anion Gap 9.8; Aspartate Amino Transferase 29 U/L (15-37); Blood Urea Nitrogen 22.0 mg/dL (7.0-18.0); Calcium 8.4 mg/dL (8.5-10.1); Carbon Dioxide 31.8 mmol/L (21.0-32.0); Chloride 103 mmol/L (98-107); Estimated GFR (African America >60 (>=60 mL/min/1.73m^2); Estimated GFR (Non-African Ame >60 (>=60 mL/min/1.73m^2); Globulin 2.2 g/dL; Glucose 86 mg/dL (74-106); Potassium 3.6 mmol/L (3.5-5.1); Sodium 141 mmol/L (136-145); Total Protein 5.7 g/dL (6.4-8.2)
== END 2025-05-26 06:11 | disposition home or self-care (01) ==
LOC: LAB 06:12
PROVIDERS: PCP Physician Assistant; Visit Provider Nurse Practitioner Adult Health
DX: D72.820 Lymphocytosis (symptomatic) (principal)
CPT/HCPCS: 36415; 80053; 83010; 85007; 85027

== ENCOUNTER 2025-06-08 06:20 | Outpatient (OUT) | payer MEDICARE, SELFPAY ==
--- OUTSIDE RECORDS SUMMARY | 2025-06-08 06:25 | XMS_ITS | CCD ---
Author Organization [facility] Care Team Providers Care Gold Leaf Laborer Name Role Phone Sedrick Ye Unavailable Unavailable Unavailable Unavailable Primary Care Provider UnavailIta Lockwood MD Unavailable Ita Tuttle MD Unavailable [phone] Ita Tuttle MD Unavailable ITA TUTTLE [...] Unavailable AMANDA, DR BRIA Morales Consulting Unavailable NIHARIKA ., DR ESDRICK Whipple Primary Care Unavailable DIANE GUAJARDO Admitting [...] OLSEN Attending Unavailable Ita Tuttle MD Unavailable [phone] Iesha Gamino Attending Unavailable Iesha Gamino Attending Unavailable Iesha Gamino Attending Unavailable Iesha Gamino Referring Unavailable MD Sedrick Ye Primary Care Provider [phone] DO Christian Carlos II Attending Provider Hemjhonatan, SENIOR MECHANICAL ESTIMATOR-C Linda Referring Provider MD Sedrick Ye Primary Care Provider DO Christian Carlos II Attending Provider Hemjhonatan, SENIOR MECHANICAL ESTIMATORRayrayC Linda Referring Provider [phone] HemLinda Donovan Primary Care Provider [phone] HemLinda Donovan Unavailable [phone] TONY ARMSTRONG Attending Unavaila ble BILL TUTTLE R Referring Unavailable WATTARBILL R Attending Unavailable WATTARCHANTELUL R Referring Unavailable WATTARITA Attending Unavailable Sedrick Ye MD Primary Care Provider [phone] Christian Carlos DO Attending Provider Hemjhonatan SENIOR MECHANICAL ESTIMATOR-Linda Long Referring Provider [phone] NON STAFF Primary Care Provider Unavailjean-paul whipple [facility] Russell CAMACHO Attending Provider Christian Carlos DO Attending Provider Hemjhonatan SENIOR MECHANICAL ESTIMATOR-Linda Long Primary Care Provider Hannah Queen APRN Attending Provider Sedrick Ye MD Primary Care Provider Massimo SENIOR MECHANICAL ESTIMATOR-Linda Long Referring Provider [phone] LINDA JANSEN Attending Unavailable EULALIO IRBY A Referring Unavailable KATIUSKA IRBYSON Jojo Attending Unavailable BROWN, EULALIO A Referring Unavailable BROWN, EULALIO A Referring Unavailable MAHAMED, EULALIO A Attending Unavailable EULALIO IRBY A Referring Unavailable GRACE HONEYCUTT Attending Unavailable LINDA JANSEN Referring Unavailable SEDRICK LYONS Attending Unavailable GRACE HONEYCUTT Attending Unavailable MAHAMED, EULALIO A Attending Unavailable BROWN, EULALIO A Referring Unavailable MAHAMED, EULALIO A Attending Unavailable MAHAMED EULALIO A Referring Unavailable LINDA JANSEN Attending Unavailable EULALIO IRBY Attending Unavailable LINDA JANSEN Attending Unavailable MAHAMED, EULALIO A Referring Unavailable BROWN, EULALIO A Referring Unavailable BROWN, EULALIO A Referring Unavailable EULALIO IRBY Attending Unavailable EULALIO IRBY Referring Unavailable Hemmer SENIOR MECHANICAL ESTIMATOR-C, Linda Primary Care Provider Christian Carlos DO Attending Provider Killian SENIOR MECHANICAL ESTIMATOR-CGracie Attending Provider Hemjhonatan SENIOR MECHANICAL ESTIMATOR-C, Linda Referring Provider [phone] Hemjhonatan SENIOR MECHANICAL ESTIMATOR-C, Linda Primary Care Provider [phone] Hemmer SENIOR MECHANICAL ESTIMATOR-C, Linda Referring Provider [phone] Massimo Linda Primary Care Unavailable Christian Carlos II Admitting Unavaila ble Christian Carlos II Attending Unavaila ble NON STAFF Primary Care Unavailable Hannah Queen Admitting Unavailable Hannah Queen Attending Unavailable Massimo Linda Primary Care Unavailable Massimo Linda Referring Unavailable Christian Carlos II Admitting Unavaila ble Christian Carlos II Attending Unavaila ble NON STAFF Primary Care Unavailable Rico Russell BALDWIN Admitting Unavailable Rico Russell BALDWIN Attending Unavailable Medications Current Medications [...] Take 25 mcg by mouth Daily Active doxepin hydrochloride 10 mg oral capsule (5 sources) Tricyclic Antidepressant End: 2023 doxepin (SINEquan) 10 MG capsule Take 10 mg by mouth as needed at bedtime for sleep 05/21/2024 Discontinued folic acid 1 mg oral tablet (2 sources) Start: 2024 take 1 tablet by mouth once daily hydroCHLOROthiazide 25 mg / valsartan 320 mg oral tablet (20 sources) Thiazide Diuretic, Angiotensin 2 Receptor Frances Start: 2024 take 1 tablet by mouth once daily [...] on above: Take 1 tablet by marco once daily. TAKE ONE TABLET BY OUTH DAILY nebivolol 5 mg oral tablet (20 sources) Start: End: take 1 tablet by mouth once daily Comment on above: Take 1 tablet by marco once daily. 24 hr NIFEdipine 30 mg [...] Start: 10-02-2018 take 1 tablet by marco once daily Start: 10-02-2018 take 1 tablet by marco twice daily Nifedipine 30 mg Tablet Extended [...] twice daily. Take 1 tablet by marco once daily. perflutren lipid microspheres 1.3 mL in NaCl (PF) 0.9% 10 mL injection (DEFINITY) (20 sources) Start: 01-17-2023 End: 04-17-2024 perflutren lipid microspheres 1.3 mL in NaCl (PF) 0.9% 10 mL injection (DEFINITY) Start: 12-12-2021 End: 03-13-2023 perflutren lipid microsphere s 1.3 mL in NaCl (PF) 0.9% 10 mL injection (DEFINITY) predniSONE 20 mg oral tablet (17 sources) Start: 05-06-2025 End: 05-27-2025 take 4 tablets by mouth once daily Start: 09-30-2024 predniSONE (De ltasone) 10 MG [...] (Therapy completed) 125 ml sodium chloride 9 mg/ ml prefilled syringe (20 sources) Start: 12-12-2021 End: 04-17-2024 sodium chloride 0.9 % (flush ) 10 mL (BD POSIFLUSH) Completed/Discontinued Medications Medication Drug Class(es) Dates Sig (Normalized) Sig (Original) acetaminophen 325 mg / HYDROcodone bitartrate 5 mg oral tablet (8 sources) Opioid Agonist Start: 07-14-2020 End: 08-28-2021 take 1 tablet by mouth every four to six hours as needed for pain Hydrocodone-Acetam inophen ([place]) 5-325 mg tablet Discontinued 1 - 2 [...] Take 1 tablet by marco twice daily. aspirin 81 mg delayed release [...] Pascale 09/30/24 at 1629, For 1 dose doxazosin 4 mg oral tablet (20 sources) alpha-Adrenergic Frances Start: 05-25-2023 End: 05-27-2025 take 1 tablet by mouth once daily at bedtime Doxazosin 4 mg tablet Discontinued 4 MG PO Daily at bedtime January 23, 2024 12:00am May 27, 2025 12:58pm Start: 01-17-2023 End: 07-31-2023 take 1.5 tablets [...] 1.5 tablets by mouth daily at bedtime. doxycycline hyclate 100 mg oral tablet (8 sources) Tetracycline-class Drug Start: 0 End: 2 take 1 tablet by mouth twice daily Doxycycline Hyclate 100 mg tablet Discontinued 100 MG PO Twice daily 05 29July 14, 2020 1:00am August 28, 2021 3:10pm furosemide 40 mg oral tablet (20 sources) Loop Diuretic Start: 0 End: 4 take 1 tablet by mouth once daily [...] / losartan potassium 100 mg oral tablet (8 sources) Thiazide Diuretic, Angiotensin 2 Receptor Frances [...] guidelines link. meloxicam 15 mg oral tablet (16 sources) Nonsteroidal Anti-inflammatory Drug Start: End: take 1 tablet by mouth once daily Meloxicam 15 mg tablet Discontinued 15 MG PO Daily January 23, 2024 12:00am April 23, 2024 2:59pm metoprolol tartrate 50 mg oral tablet (8 sources) beta-Adrenergic Frances Start: End: take 1 [...] 10 days 30 tablet 06/10/2024 07/27/2024 Discontinued valsartan 320 mg oral tablet (13 sources) Angiotensin 2 Receptor Frances Start: 03-01-20 End: 05-13-20 take 1 tablet by mouth once daily Valsartan 320 mg tablet Discontinued 320 MG PO Daily March 04, 2025 12:00am May 13, 2025 9:40am Problems Active Problems Problem Classification Problem Date Documented Date Episodic/Chronic Administrative/social admission (3 sources) Repeated prescription; Translations: [Encounter for issue of repeat prescription] Episodic Allergic reactions (6 sources) Contact dermatitis; Translations: [Unspecified contact dermatitis, [...] coronary artery; Translations: [Atherosclerotic heart disease of [place] coronary artery without angina pectoris] 09-21-2024 Chronic Crushing injury or internal injury (4 sources) Crushing injury of right foot, initial encounter; Translations: [CRUSHING INJURY RIGHT FOOT INITIAL] Onset: 12-24-2022 Episodic Deficiency and other anemia (2 sources) Autoimmune hemolytic anemia; 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 EHR Cmte Fracture of upper limb (6 sources) Closed fracture of phalanx of finger; Translations: [Fracture of unspecified phalanx of unspecified finger, initial encounter for closed fracture] 07-24-2024 Episodic Joint disorders and dislocations; trauma-related (2 sources) Tear of medial meniscus of knee; Translations: [Other tear of medial meniscus, current injury, right knee, subsequent encounter] 06-18-2024 Episodic Leukemias (3 sources) Chronic lymphoid leukemia, disease; Translations: [Chronic lymphocytic leukemia of B-cell type not having achieved remission] Onset: 05-27-2025 05-13-2025 Chronic Nonspecific chest pain (8 sources) Chest pain; Translations: [Chest pain, unspecified] Episodic Osteoarthritis (10 sources) Degenerative joint disease of ankle AND/OR foot; Translations: [Primary osteoarthritis, unspecified ankle and foot] Onset: 03-01-2025 03-01-2025 Chronic Other aftercare (20 sources) Patient encounter status; Translations: [long-term (current) use of anticoagulants] Onset: 02-09-2024 Resolved: [...] hand] 09-30-2024 Episodic Other connective tissue disease (6 sources) Pain in finger; Translations: [Pain in [...] AUTO DIFFon Erythrocyte distribution width (RBC) [Ratio] 14.1 % 11.0 - 15.0 % [facility] Hematocrit (Bld) [Volume fraction] 33.5 % Low 42.0 - 54.0 % [facility] Hemoglobin (Bld) [Mass/Vol] 11.3 g/dL Low 14.0 - 18.0 g/dL [facility] Interpretation and review of laboratory results Abnormal [facility] MCH (RBC) [Entitic mass] 36.3 pg High 25.9 - 34.0 pg [facility] MCHC (RBC) [Mass/Vol] 33.7 g/dL 29.9 - 35.2 g/dL [facility] MCV (RBC) [Entitic vol] 107.7 fL High 80.0 - 94.0 fL [facility] Platelet mean volume (Bld) [Entitic vol] 8.8 fL Low 9.5 - 13.5 fL [facility] TBH PLT 120 Low [facility] TBH RBC 3.11 Low [facility] TBH WBC 24.4 High [facility] ALL CBC WITH AUTO DIFFon Erythrocyte distribution width (RBC) [Ratio] 15.6 % High 11.0 - 15.0 % [facility] Hematocrit (Bld) [Volume fraction] 32.1 % Low 42.0 - 54.0 % [facility] Hemoglobin (Bld) [Mass/Vol] 10.5 g/dL Low 14.0 - 18.0 g/dL [facility] Interpretation and review of laboratory results Abnormal [facility] MCH (RBC) [Entitic mass] 36.7 pg High 25.9 - 34.0 pg [facility] MCHC (RBC) [Mass/Vol] 32.7 g/dL 29.9 - 35.2 g/dL [facility] MCV (RBC) [Entitic vol] 112.2 fL High 80.0 - 94.0 fL [facility] Platelet mean volume (Bld) [Entitic vol] 9.1 fL Low 9.5 - 13.5 fL [facility] TB PLT 151 [facility] RBC 2.86 Low [facility] WBC 29.2 High [facility] ALL CBC WITH AUTO DIFFon Erythrocyte distribution width (RBC) [Ratio] 16.6 % High 11.0 - 15.0 % [facility] Hematocrit (Bld) [Volume fraction] 27.9 % Low 42.0 - 54.0 % [facility] Hemoglobin (Bld) [Mass/Vol] 9.2 g/dL Low 14.0 - 18.0 g/dL [facility] Interpretation and review of laboratory results Abnormal [facility] MCH (RBC) [Entitic mass] 37.2 pg High 25.9 - 34.0 pg [facility] MCHC (RBC) [Mass/Vol] 33 g/dL 29.9 - 35.2 g/dL [facility] MCV (RBC) [Entitic vol] 113 fL High 80.0 - 94.0 fL [facility] Platelet mean volume (Bld) [Entitic vol] 9.2 fL Low 9.5 - 13.5 fL [facility] PLT 148 Low [facility] RBC 2.47 Low [facility] WBC 26.8 High [facility] Antibody Identificationon Antibody Identification WARM Normal [facility] Comment on above: Result Comment: Auto -Anti-D Auto-Anti-e Testing performed and reported by [facility]. Blood Bank Pathologist Michael craven 05-16-2025 Blood Bank Pathologist Review Sent to Pathology Normal [facility] Comment on above: Result Comment: PERF ORMED BY: [facility] [address] [place] [address] PATHOLOGIST LYE BOILER DANIELLE QUINONES M.D. [facility] BB Sendou ton 05-13-2025 [facility] BB Sendout Sent to [facility] Normal [facility] Comment on above: Result Comment: Sent to [facility] for further testing. Final report to follow. PERFORMED BY: [address] [place] [address] PATHOLOGIST LYE BOILER DANIELLE QUINONES M.D. Complement DATon 05-13-2025 Complement C3B,-C3D AHG Positive Critically abnormal Negative [facility] Comment on above: Result Comment: PERF ORMED BY: [address] [address] PATHOLOGIST LYE BOILER DANIELLE QUINONES M.D. Direct Antiglobulin Teston 0 05-13-2025 IgG AHG Positive Critically abnormal Negative [facility] Direct [place] 05-13-2025 Polyspecific AHG Positive Critically abnormal Negative [facility] Comment on above: Result Comment: PERF ORMED BY: [address] [address] PATHOLOGIST LYE BOILER DANIELLE QUINONES M.D. Jalil 05-13-2025 L ------ Specimen: [id number] Received: 05/16/25 Status: FRANCIS Veronika Num: [id number] Spec Type: Impression Subm Dr: Christian Carlos II, DO Tissues: PATHBBK Procedures: PATHREVIEW Age/ Patient Sex Location Account Attending Physician Darius Valera 64/M [id number] Christian Carlos II, DO SPEC NUM: [id number] RECD: 05/16/25 STATUS: FRANCIS YIN NUM: [id number] MELONIE: 05/13/25- DR: Christian Carlos II, DO ENTERED: 05/16/25-[address]: KANA TYPE: Impression DEPT: [place] ORDERED: PATHREVIEW [facility] Results Date Time Test Result Flag (u) Normal Range 05/12/25935 Ab Screen POSITIVE AB ID 05/12/25935 AUTO, Panaglutin, Warm Auto-Anti-D Auto-Anti-e Testing performed and reported by [facility]. Pathologist Review [facility] reports detection of auto anti-D, auto anti-e, nonspecific reactivity, and probable warm autoantibody. Recommendation: The majority of ABO/Rh D compatible units will be incompatible with neat serum/plasma. Specimen: [id number] Received: 05/16/25 Status: FRANCIS Yin Num: [id number] Spec Type: Impression Subm Dr: Christian Carlos II, DO Tissues: [id number] Procedures: PATHREVIEW Patient: Darius Valera [id number] (Continued) Signed (signature on file) Vinay Cowan JR, MD 05/25/25 1100 Normal [facility] Alanine aminotransferase [En zymatic activity/volume] in Serum or PlasmaOrdered By: Christian Carlos on 05-12-2025 ALT [Catalytic activity/Vol] 23 U/L Normal 7-52 [facility] Comment on above: Performed By: #### S CAN CBC, LDH, CMP #### [place] [address] [place] Albumin [Mass/volume] in Ser um or Plasma by Bromocresol green (BCG) dye binding methoOrdered By: Christian Carlos on 05-12-2025 Albumin BCG dye [Mass/Vol] 4.2 g/dL 3.5-5.7 [facility] Alkaline phosphatase [Enzyma tic activity/volume] in Serum or PlasmaOrdered By: Christian Carlos on 05-12-2025 ALP [Catalytic activity/Vol] 69 U/L Normal 34-104 [facility] Comment on above: Performed By: #### S CAN CBC, LDH, CMP #### [place] [address] [place] Anisocytosis [Presence] in B lood by Light microscopyOrdered By: Christian Carlos on 05-12-2025 Anisocytosis Ql (Bld) Slight Normal [facility] Comment on above: Performed By: #### S CAN CBC, LDH, CMP #### [address] Aspartate aminotransferase [ Enzymatic activity/volume] in Serum or PlasmaOrdered By: Christian Carlos on 05-12-2025 AST [Catalytic activity/Vol] 28 U/L Normal 13-39 [facility] Comment on above: Performed By: #### S CAN CBC, LDH, CMP #### [place] [address] [place] Basophils [#/volume] in Bloo d by Automated countOrdered By: Christian Carlos on 05-12-2025 Basophils (Bld) [#/Vol] 0.1 10*3/uL Normal 0.0-0.2 [facility] Comment on above: Performed By: #### S CAN CBC, LDH, CMP #### [place] [address] [place] Basophils/100 leukocytes in Blood by Automated countOrdered By: Christian Carlos on 05-12-2025 Basophils/100 WBC (Bld) 0.3 % Normal . [facility] Comment on above: Performed By: #### S CAN CBC, LDH, CMP #### [facility] [address] [place] [address] [place] Bilirubin.total [Mass/volume ] in Serum or PlasmaOrdered By: Christian Carlos on 05-12-2025 Bilirubin [Mass/Vol] 3.4 mg/dL High 0.3-1.0 [facility] Comment on above: Samples from patient [...] #### S CAN CBC, LDH, CMP #### [facility] [address] [place] [address] [place] Calcium [Mass/volume] in Ser um or PlasmaOrdered By: Christian Carlos on 05-12-2025 Calcium [Mass/Vol] 8.7 mg/dL Normal 8.6-10.3 [facility] Comment on above: Performed By: #### S CAN CBC, LDH, CMP #### [address] Carbon dioxide, total [Moles /volume] in Serum or PlasmaOrdered By: Christian Carlos on 05-12-2025 CO2 [Moles/Vol] 34.3 mmol/L High 21.0-31.0 [facility] Comment on above: Performed By: #### S CAN CBC, LDH, CMP #### [facility] [address] [place] [address] [place] Chloride [Moles/volume] in S hesham or PlasmaOrdered By: Christian Carlos on 05-12-2025 Chloride [Moles/Vol] 104 mmol/L Normal 98-107 [facility] Comment on above: Performed By: #### S CAN CBC, LDH, CMP #### [facility] [address] Comprehensive Metabolic Pane jalil 05-12-2025 Albumin [Mass/Vol] 4.2 g/dL Normal 3.5-5.7 [facility] Comment on above: Performed By: #### S CAN CBC, LDH, CMP #### [facility] [address] Creatinine Clr Calc Pharmacy 87.86 Normal [facility] Comment on above: Performed By: #### S CAN CBC, LDH, CMP #### [facility] [address] [place] [address] [place] GFR/1.73 sq M.predicted MDRD (S/P/Bld) [Vol rate/Area] mL/min/{1.73_m2} Normal [facility] Comment on above: Performed By: #### S CAN CBC, LDH, CMP #### [address] Creatinine [Mass/volume] in Serum or PlasmaOrdered By: Christian Carlos on 05-12-2025 Creatinine [Mass/Vol] 0.92 mg/dL Normal 0.70-1.30 [facility] Comment on above: Performed By: #### S CAN CBC, LDH, CMP #### [address] Dacrocytes [Presence] in Blo od by Light microscopyOrdered By: Christian Carlos on 05-12-2025 Dacrocytes LM Ql (Bld) Slight [facility] Eosinophils [#/volume] in Bl ood by Automated countOrdered By: Christian Carlos on 05-12-2025 Eosinophils (Bld) [#/Vol] 0.0 10*3/uL Normal 0.0-0.45 [facility] Comment on above: Performed By: #### S CAN CBC, LDH, CMP #### [place] [address] [place] Eosinophils/100 leukocytes i n Blood by Automated countOrdered By: Christian Carlos on 05-12-2025 Eosinophils/100 WBC (Bld) 0.1 % Normal . [facility] Comment on above: Performed By: #### S CAN CBC, LDH, CMP #### [address] Erythrocyte Sedimentation Ra jennifer 05-12-2025 ESR (Bld) [Velocity] mm/h Normal 0-19 [facility] Comment on above: Result Comment: PERF ORMED BY: [place] [address] PATHOLOGIST LYE BOILER DANIELLE QUINONES M.D. Performed By: #### S CAN CBC, LDH, CMP #### [address] Erythrocyte distribution wid th [Ratio] by Automated countOrdered By: Christian Carlos on 05-12-2025 Erythrocyte distribution width (RBC) [Ratio] 16.6 % High 12.0-14.8 [facility] Comment on above: Performed By: #### S CAN CBC, LDH, CMP #### [address] Erythrocyte morphology findi ng [Identifier] in BloodOrdered By: Christian Carlos on 05-12-2025 RBC morphology finding Nom (Bld) N/A [facility] Erythrocyte sedimentation ra te by Photometric methodOrdered By: Christian Carlos on 05-12-2025 ESR Photometric method (Bld) [Velocity] < 1 mm/hr 0-19 [facility] Erythrocytes [#/volume] in B lood by Automated countOrdered By: Christian Carlos on 05-12-2025 RBC (Bld) [#/Vol] 2.39 10*6/uL Low 3.90-5.60 [facility] Comment on above: Performed By: #### S CAN CBC, LDH, CMP #### [facility] [address] [place] [address] [place] Ferritin [Mass/volume] in Se rum or PlasmaOrdered By: Christian Carlos on 05-12-2025 Ferritin [Mass/Vol] 179.1 ng/mL Normal 23.9-336.2 [facility] Comment on above: Performed By: #### S CAN CBC, LDH, CMP #### [facility] [address] [place] [id number] [facility] Folate [Mass/volume] in Seru m or PlasmaOrdered By: Christian Carlos on 05-12-2025 Folate [Mass/Vol] 19.3 ng/mL >5.9 [facility] Comment on above: Folate reference ran ge: >5.9 ng/mlThe WHO technical consultation on folate and vitamin [id number] has determined that folate concentrations lessthan 4 ng/ml are considered deficient. Glomerular filtration rate [ Volume Rate/Area] in Serum, Plasma or Blood by CreatinineOrdered By: Christian Carlos on 05-12-2025 Glomerular filtration rate [Volume Rate/Area] in Serum, Plasma or Blood by Creatinine > 60.0 mL/Min [facility] Glucose [Mass/volume] in Ser um or PlasmaOrdered By: Christian Carlos on 05-12-2025 Glucose [Mass/Vol] 88 mg/dL Normal 70-100 [facility] Comment on above: ADA recommended refe rence rangeRandom Glucose Reference Range is dependent on time and content of last meal. Glucose of more than 200 mg/dL in a nonstressed, ambulatory subject supports the diagnosis of Diabetes Mellitus. Result Comment: [place] om Glucose Reference Range is dependent on time and content of last meal. Glucose of more than 200 mg/dL in a nonstressed, ambulatory subject supports the diagnosis of Diabetes Mellitus. ADA recommended reference range Performed By: #### S CAN CBC, LDH, CMP #### [facility] [address] [place] [id number] [place] Haptoglobinon 05-12-2025 HAPTOGLOBIN mg/dL Low 44 - 215 mg/dL [facility] Interpretation and review of laboratory results Abnormal [facility] Haptoglobin <30 Low 44-215 [facility] Comment on above: Result Comment: PERF ORMED BY: [facility] [address] [place] [address] PATHOLOGIST LYE BOILER DANIELLE QUINONES M.D. Performed By: #### S CAN CBC, LDH, CMP #### [facility] [address] [place] [id number] [facility] Haptoglobin [Mass/volume] in Serum or PlasmaOrdered By: Christian Carlos on 05-12-2025 Haptoglobin [Mass/Vol] mg/dL Low 44-215 [facility] Hematocrit [Volume Fraction] of Blood by Automated countOrdered By: Christian Carlos on 05-12-2025 Hematocrit (Bld) [Volume fraction] 26.6 % Low 38.8-50.0 [facility] Comment on above: Performed By: #### S CAN CBC, LDH, CMP #### [facility] [address] Hemoglobin [Mass/volume] in BloodOrdered By: Christian Carlos on 05-12-2025 Hemoglobin (Bld) [Mass/Vol] 8.9 g/dL Low 13.0-17.0 [facility] Comment on above: Performed By: #### S CAN CBC, LDH, CMP #### [facility] [address] [place] [address] Hypochromia LM Ql (Bld)Order ed By: Christian Carlos on 05-12-2025 Hypochromia Ql (Bld) Slight [facility] Iron [Mass/volume] in Serum or PlasmaOrdered By: Christian Carlos on 05-12-2025 Iron [Mass/Vol] 139 ug/dL Normal 50-212 [facility] Comment on above: Performed By: #### S CAN CBC, LDH, CMP #### [facility] [address] [place] [address] Iron and TIBC Profileon 04-25 % Iron Saturation 46.2 % Normal 20-50 [facility] Comment on above: Performed By: #### S CAN CBC, LDH, CMP #### [facility] [address] Total Iron Binding Capacity 301 ug/dL Normal 255-450 [facility] Comment on above: Performed By: #### S CAN CBC, LDH, CMP #### [facility] [address] [place] [address] Leukocytes [#/volume] correc christophe for nucleated erythrocytes in Blood by Automated counOrdered By: Christian Carlos on 05-12-2025 WBC corrected for nucl RBC Auto (Bld) [#/Vol] 24.7 10*3/uL High 4.1-10.5 [facility] Leukocytes [#/volume] in Blo od by Automated countOrdered By: Christian Carlos on 05-12-2025 WBC (Bld) [#/Vol] 24.7 10*3/uL High 4.1-10.5 [facility] Comment on above: Performed By: #### S CAN CBC, LDH, CMP #### [facility] [address] [place] [address] [place] Lymphocytes [#/volume] in Bl ood by Automated countOrdered By: Christian Carlos on 05-12-2025 Lymphocytes (Bld) [#/Vol] 18.5 10*3/uL High 1.00-4.8 [facility] Comment on above: Performed By: #### S CAN CBC, LDH, CMP #### [facility] [address] [place] [address] [place] Lymphocytes/100 leukocytes i n Blood by Automated countOrdered By: Christian Carlos on 05-12-2025 Lymphocytes/100 WBC (Bld) 74.6 % Normal . [facility] Comment on above: Performed By: #### S CAN CBC, LDH, CMP #### [facility] [address] MCH [Entitic mass] by Automa christophe countOrdered By: Christian Carlos on 05-12-2025 MCH (RBC) [Entitic mass] 37.3 pg High 27.5-35.2 [facility] Comment on above: Performed By: #### S CAN CBC, LDH, CMP #### [facility] [address] MCHC Auto (RBC) [Mass/Vol]Or dered By: Christian Carlos on 05-12-2025 MCHC (RBC) [Mass/Vol] 33.5 g/dL 32.5-35.6 [facility] MCV [Entitic volume] by Auto mated countOrdered By: Christian Carlos on 05-12-2025 MCV (RBC) [Entitic vol] 111.3 fL High 83.5-101 [facility] Comment on above: Performed By: #### S CAN CBC, LDH, CMP #### [facility] [address] [place] [address] [place] Microcytes LM Ql (Bld)Ordere d By: Christian Carlos on 05-12-2025 Microcytes Ql (Bld) Marked [facility] Monocytes [#/volume] in Bloo d by Automated countOrdered By: Christian Carlos on 05-12-2025 Monocytes (Bld) [#/Vol] 0.6 10*3/uL Normal 0.0-0.8 [facility] Comment on above: Performed By: #### S CAN CBC, LDH, CMP #### [address] Monocytes/100 leukocytes in Blood by Automated countOrdered By: Christian Carlos on 05-12-2025 Monocytes/100 WBC (Bld) 2.6 % Normal . [facility] Comment on above: Performed By: #### S CAN CBC, LDH, CMP #### [facility] [address] [place] [address] Neutrophils [#/volume] in Bl ood by Automated countOrdered By: Christian Carlos on 05-12-2025 Neutrophils (Bld) [#/Vol] 5.5 10*3/uL Normal 1.8-7.7 [facility] Comment on above: Performed By: #### S CAN CBC, LDH, CMP #### [facility] [address] [place] [address] Neutrophils/100 leukocytes i n Blood by Automated countOrdered By: Christian Carlos on 05-12-2025 Neutrophils/100 WBC (Bld) 22.4 % Normal . [facility] Comment on above: Performed By: #### S CAN CBC, LDH, CMP #### [address] No Panel InformationOrdered By: Christian Carlos on 05-12-2025 Pharmacy Creatinine Clearance (Chem 87.86 [facility] Nucleated erythrocytes [Pres ence] in Blood by Automated countOrdered By: Christian Carlos on 05-12-2025 Nucleated RBC Auto Ql (Bld) 0.1 /100{WBC} 0-0.5 [facility] Platelet adequacy [Presence] in Blood by Light microscopyOrdered By: Christian Carlos on 05-12-2025 Platelets LM Ql (Bld) Normal Normal [facility] Platelet mean volume [Entiti c volume] in Blood by Automated countOrdered By: Christian Carlos on 05-12-2025 Platelet mean volume (Bld) [Entitic vol] 7.0 fL Normal 6.6-10.1 [facility] Comment on above: Performed By: #### S CAN CBC, LDH, CMP #### [facility] [address] [place] [address] Platelet morphology finding [Identifier] in BloodOrdered By: Christian Carlos on 05-12-2025 Platelet morphology finding Nom (Bld) Normal Normal [facility] Platelets [#/volume] in Bloo d by Automated countOrdered By: Christian Carlos on 05-12-2025 Platelets (Bld) [#/Vol] 178 10*3/uL Normal 150-450 [facility] Comment on above: Performed By: #### S CAN CBC, LDH, CMP #### [facility] [address] [place] [address] Polychromasia [Presence] in Blood by Light microscopyOrdered By: Christian Carlos on 05-12-2025 Polychromasia LM Ql (Bld) Moderate [facility] Potassium [Moles/volume] in Serum or PlasmaOrdered By: Christian Carlos on 05-12-2025 Potassium [Moles/Vol] 3.6 mmol/L Normal 3.5-5.1 [facility] Comment on above: Performed By: #### S CAN CBC, LDH, CMP #### [facility] [address] [place] [address] [place] Protein [Mass/volume] in Ser um or PlasmaOrdered By: Christian Carlos on 05-12-2025 Protein [Mass/Vol] 5.8 g/dL Low 6.4-8.9 [facility] Comment on above: Performed By: #### S CAN CBC, LDH, CMP #### [address] Scan and CBCon 05-12-2025 Hypochromasia Slight Normal [facility] Comment on above: Performed By: #### S CAN CBC, LDH, CMP #### [address] Mean Corpuscular HGB Conc 33.5 g/dL Normal 32.5-35.6 [facility] Comment on above: Performed By: #### S CAN CBC, LDH, CMP #### [address] Microcytosis Marked Normal [facility] Comment on above: Performed By: #### S CAN CBC, LDH, CMP #### [address] NRBC% 0.1 /100{WBC} Normal 0-0.5 [facility] Comment on above: Performed By: #### S CAN CBC, LDH, CMP #### [address] Platelet Estimate Normal Normal Normal [facility] Comment on above: Performed By: #### S CAN CBC, LDH, CMP #### [address] Platelet Morphology Normal Normal Normal [facility] Comment on above: Performed By: #### S CAN CBC, LDH, CMP #### [address] Polychromasia Moderate Normal [facility] Comment on above: Performed By: #### S CAN CBC, LDH, CMP #### [address] Tear Drop Cells Slight Normal [facility] Comment on above: Performed By: #### S CAN CBC, LDH, CMP #### [address] White Blood Count 24.7 [CFU]/mL High 4.1-10.5 [facility] Comment on above: Performed By: #### S CAN CBC, LDH, CMP #### [facility] [address] [place] [address] Serum globulin measurement b y calculation (mass/volume)Ordered By: Christian Carlos on 05-12-2025 Globulin (S) [Mass/Vol] 1.6 g/dL [facility] Comment on above: Performed By: #### S CAN CBC, LDH, CMP #### [address] Serum or plasma albumin/glob ulin mass ratioOrdered By: Christian Carlos on 05-12-2025 Albumin/Globulin [Mass ratio] 2.6 {ratio} [facility] Comment on above: Performed By: #### S CAN CBC, LDH, CMP #### [address] Serum or plasma anion gap de terminationOrdered By: Christian Carlos on 05-12-2025 Anion gap [Moles/Vol] 7.3 mmol/L Normal 6.0-15.0 [facility] Comment on above: Performed By: #### S CAN CBC, LDH, CMP #### [address] Serum or plasma iron binding capacity measurement (mass/volume)Ordered By: Christian Carlos on 05-12-2025 Iron binding capacity [Mass/Vol] 301 ug/dL 255-450 [facility] Serum or plasma iron saturat ion measurement (mass fraction)Ordered By: Christian Carlos on 05-12-2025 Iron saturation [Mass fraction] 46.2 % 20-50 [facility] Sodium [Moles/volume] in Ser um or PlasmaOrdered By: Christian Carlos on 05-12-2025 Sodium [Moles/Vol] 142 mmol/L Normal 136-145 [facility] Comment on above: Performed By: #### S CAN CBC, LDH, CMP #### [facility] [address] [place] [address] Transferrin [Mass/volume] in Serum or PlasmaOrdered By: Christian Carlos on 05-12-2025 Transferrin [Mass/Vol] 215 mg/dL Normal 203-362 [facility] Comment on above: Performed By: #### S CAN CBC, LDH, CMP #### [facility] [address] Type and Screenon 05-12-2025 ABO and Rh group Nom (Bld) Blood group O Rh(D) positive Normal [facility] Comment on above: Result Comment: PERF ORMED BY: [place] [address] PATHOLOGIST [employer]YE BOILER DANIELLE QUINONES M.D. US spleenon 05-12-2025 US spleen [facility] [place] [address] [place] [address] Ultrasound Report Signed Patient: Darius Valera MR#: [id number] 10 : 1960 Acct:[id number] Age/Sex: 64 / M ADM Date: 05/12/25 Loc: Room: Type: [facility] Attending Dr: Christian Carlos II, DO Ordering [...] Curry M.D. 05/12/2025 1:08 PM Dictation Location: [place] [address] Tech: Caterina Aguirre Transcribed By: [facility] 05/12/25 1308 Dictated By: Joey Curry DO 05/12/25 1303 Signed By: 05/12/25 1308 Normal [facility] Urea nitrogen [Mass/volume] in Serum or PlasmaOrdered By: Christian Carlos on 05-12-2025 Urea nitrogen [Mass/Vol] 20 mg/dL Normal 7-25 [facility] Comment on above: Performed By: #### S CAN CBC, LDH, CMP #### [facility] [address] Vit. B12/Folate Profileon Folate 19.3 ng/mL Normal >5.9 [facility] Comment on above: Result Comment: Catarina te reference range: >5.9 ng/ml The WHO technical consultation on folate and vitamin b12 deficiencies has determined that folate concentrations less than 4 ng/ml are considered deficient. PERFORMED BY: [place] [address] PATHOLOGIST [employer] DANIELLE QUINONES M.D. Performed By: #### S CAN CBC, LDH, CMP #### [facility] [address] Vitamin B12 ser/plasOrdered By: Christian Carlos on 05-12-2025 Cobalamin (Vitamin B12) [Mass/Vol] 492 pg/mL Normal 180-914 [facility] Comment on above: Performed By: #### S CAN CBC, LDH, CMP #### [facility] [address] ALL SED RATEon 05-09-2025 TB SED RATE <1 NINF [facility] ECG COMPLETEon 04-04-2025 Atrial Rate 76 BPM [facility] Calculated P [place] 13 degrees [facility] Calculated R [place] 0 degrees [facility] Calculated T [place] 18 degrees [facility] P-R Interval 178 ms [facility] QRS Duration 86 ms [facility] QT Interval 378 ms [facility] QTC Calculation (Bazett) 425 ms [facility] Ventricular Rate 76 BPM [facility] NORMAL SINUS RHYTHM NORMAL ECG Confirmed by JADE DAS MD ([id number]) on 04/04/2025 5:11:38 [facility] NAME : DARIUS VALERA PID : [id number] : 1960 Gender : Male Race : ORD : Procedure Date : Apr 04 2025 14:34:56 Edit Date : Apr 04 2025 17:11:41 Diagnosis: NORMAL SINUS RHYTHM NORMAL ECG Confirmed by JADE DAS MD ([id number]) on 04/04/2025 5:11:38 PM Test Reason : Location : 192 : AVCRD Overread By : JADE DAS MD Edited By : JADE DAS MD Referred By : , Acquired by : , [facility] HEMOGLOBIN A1con 03-19-2025 HbA1c (Bld) [Mass fraction] [...] diagnosis of diabetes in children. According to [place] Diabetes Association (ADA) guidelines, hemoglobin A1c <7.0% represents optimal control in non- diabetic patients. Different metrics may apply to specific patient populations. Standards of Medical Care in Diabetes(ADA). Performed By: #### 5 363, 35424, 48816, 496, 7600 #### [facility] [address], [address] [place] [address] Html Web Developer: Memo Marquis MD LIPID PANEL, STANDARDon 02-23 Cholesterol [Mass/Vol] 140 mg/dL Normal <200 [facility] Comment on above: Order Comment: FASTI NG:YES FASTING: YES Performed By: #### 5 363, 06812, 57333, 496, 7600 #### [facility] [address], [address] [place] [address] Html Web Developer: Memo Marquis MD Cholesterol in HDL [Mass/Vol] 67 mg/dL Normal > OR = 40 [facility] Comment on above: Order Comment: FASTI NG:YES FASTING: YES Performed By: #### 5 363, 97792, 78791, 496, 7600 #### [facility] [address], [address] [place] [address] Html Web Developer: Memo Marquis MD Cholesterol in LDL [Mass/Vol] [...] of LDL-C. Hilario SS et al. ARNULFO. 2013;310(88): 8810-6123 (http://education.TranquilMed/faq/ESA827) Performed By: #### 5 363, 55848, 69211, 496, 7600 #### [facility] [address], [address] [place], [place] [phone] Html Web Developer: Memo Marquis MD Cholesterol.total/Chol esterol in HDL [Mass ratio] 2.1 {ratio} Normal <5.0 [facility] Comment on above: Order Comment: FASTI NG:YES FASTING: YES Performed By: #### 5 363, 51961, 77138, 496, 7600 #### [facility] [address], [address] [place], [place] [address] Html Web Developer: Memo Marquis MD NON HDL CHOLESTEROL 73 mg/dL (calc) Normal <130 [facility] Comment on above: Order Comment: FASTI NG:YES FASTING: YES Result Comment: For patients with diabetes plus 1 major ASCVD risk factor, treating to a non-HDL-C goal of <100 mg/dL (LDL-C of <70 mg/dL) is considered a therapeutic option. Performed By: #### 5 363, 78608, 24854, 496, 7600 #### [facility] [address], [address] [place] [address] Html Web Developer: Memo Marquis MD Triglyceride [Mass/Vol] 53 mg/dL Normal <150 [facility] Comment on above: Order Comment: FASTI NG:YES FASTING: YES Performed By: #### 5 363, 60389, 68468, 496, 7600 #### [facility] [address], [address] [place] [address] Html Web Developer: Memo Marquis MD PSA, TOTALon 03-19-2025 PSA, TOTAL 0.62 ng/mL Normal < OR = 4.00 [facility] Comment on above: Result Comment: The total PSA value from this assay system is standardized against the WHO standard. The test result will be approximately 20% lower when compared to the equimolar-standardized total PSA (Harjit Viri). Comparison of serial PSA results should be interpreted with this fact in mind. This test was performed using the Siemens chemiluminescent method. Values obtained from different assay methods cannot be used interchangeably. PSA levels, regardless of value, should not be interpreted as absolute evidence of the presence or absence of disease. Performed By: #### 5 363, 16206, 16739, 496, 7600 #### [facility] [address], [address] [place] [address] Html Web Developer: Memo Marquis MD TSH W/REFLEX TO FT4on 2024 TSH W/REFLEX TO FT4 0.97 mIU/L Normal 0.40-4.50 [facility] Comment on above: Performed By: #### 5 363, 24248, 77413, 496, 7600 #### [facility] [address], [address] [place] [address] Html Web Developer: Memo Marquis MD VITAMIN D,25-OH,TOTAL,IAon 0 03-19-2025 [...] D, (D2,D3), LC/MS/MS is recommended: order code 58350 (patients >2yrs). See Note 1 Note 1 For additional information, please refer to http://education.Greenscreen Animals.Work [employer] Pie/faq/MRR112 (This link is being provided for informational/ educational purposes only.) Performed By: #### 5 363, 97778, 14721, 496, 7600 #### [facility] [address] [facility], [address] [place] [address] Html Web Developer: Memo Marquis MD PATHOLOGY REQUEST FOR LAB CO RPon 02-15-2025 PATHOLOGY REQUEST FOR LAB REINA [facility] Comment on above: See report. Scanned copy available in EMR. [facility] Alanine aminotransferase [En zymatic activity/volume] in Serum or Plasmaon 02-10-2025 ALT [Catalytic activity/Vol] 31 U/L Normal 7-52 [facility] Comment on above: Performed By: #### S CAN CBC, LDH, CMP #### [facility] [address] [place] [address] [place] Albumin [Mass/volume] in Ser um or Plasma by Bromocresol green (BCG) dye binding methoOrdered By: Christian Carlos on 02-10-2025 Albumin BCG dye [Mass/Vol] 4.7 g/dL 3.5-5.7 [facility] Alkaline phosphatase [Enzyma tic activity/volume] in Serum or Plasmaon 02-10-2025 ALP [Catalytic activity/Vol] 88 U/L Normal 34-104 [facility] Comment on above: Performed By: #### S CAN CBC, LDH, CMP #### [facility] [address] Anisocytosis [Presence] in B lood by Light microscopyOrdered By: Christian Carlos on 02-10-2025 Anisocytosis Ql (Bld) Slight Normal [facility] Comment on above: Performed By: #### S CAN CBC, LDH, CMP #### [facility] [address] [place] [address] [place] Aspartate aminotransferase [ Enzymatic activity/volume] in Serum or Plasmaon 02-10-2025 AST [Catalytic activity/Vol] 38 U/L Normal 13-39 [facility] Comment on above: Performed By: #### S CAN CBC, LDH, CMP #### [facility] [address] [place] [id number] [place] Basophils Auto (Bld) [#/Vol] Ordered By: Christian Carlos on 02-10-2025 Basophils (Bld) [#/Vol] N/A [facility] Basophils/100 WBC Auto (Bld) Ordered By: Christian Carlos on 02-10-2025 Basophils/100 WBC (Bld) N/A [facility] Bilirubin.total [Mass/volume ] in Serum or Plasmaon 02-10-2025 Bilirubin [Mass/Vol] 1.9 mg/dL High 0.3-1.0 [facility] Comment on above: Samples from patient [...] #### S CAN CBC, LDH, CMP #### [address] COAGULATION PROFILEon 2024 aPTT Coag (Bld) [Time] 30.1 s 25.1 - 36.5 s [facility] Comment on above: A hematocrit value g reater than 55% may lead to inaccurate results in coagulation testing. Patients having hematocrit values >55% require a special collection tube for coagulation studies. Please contact the laboratory at [phone] for redraw instructions. INR Coag (PPP) [Relative time] 1 {INR} [facility] Comment on above: INR Therapeutic Rang [...] 11.1 s 9.0 - 1 2.9 s [facility] Comment on above: A hematocrit value g reater than 55% may lead to inaccurate results in coagulation testing. Patients having hematocrit values >55% require a special collection tube for coagulation studies. Please contact the laboratory at [phone] for redraw instructions. STAT FOR [facility] CT guided bone marrow bx/asp iron 02-10-2025 CT guided bone marrow bx/aspir [facility] [place] [address] [place] [address] CT Scan Report Signed Patient: Darius Valera MR#: [id number] 10 : 1960 Acct:[id number] Age/Sex: 64 / M ADM Date: 02/10/25 Loc: CT Room: Type: [facility] Attending Dr: Christian Carlos II [...] local anesthesia. Utilizing CT guidance, an 11-gauge Vocab biopsy needle was advanced into the right [...] Jr., Tay 02/10/2025 11:08 AM Dictation Location: [place] [address] Transcribed By: [facility] 02/10/25 1108 Dictated By: Garcia Vanegas Jr, DO 02/10/25 1102 Signed By: 02/10/25 1108 Normal [facility] Calcium [Mass/volume] in Ser um or Plasmaon 02-10-2025 Calcium [Mass/Vol] 9.3 mg/dL Normal 8.6-10.3 [facility] Comment on above: Performed By: #### S CAN CBC, LDH, CMP #### [address] Carbon dioxide, total [Moles /volume] in Serum or Plasmaon 02-10-2025 CO2 [Moles/Vol] 28.6 mmol/L Normal 21.0-31.0 [facility] Comment on above: Performed By: #### S CAN CBC, LDH, CMP #### [address] Chloride [Moles/volume] in S hesham or Plasmaon 02-10-2025 Chloride [Moles/Vol] 106 mmol/L Normal 98-107 [facility] Comment on above: Performed By: #### S CAN CBC, LDH, CMP #### [address] Coagulation Profileon 2024 aPTT Coag (Bld) [Time] 30.1 s Normal 25.1-36.5 [facility] Comment on above: Order Comment: STAT FOR CT Result Comment: A he matocrit value greater than 55% may lead to inaccurate results in coagulation testing. Patients having hematocrit values >55% require a special collection tube for coagulation studies. Please contact the laboratory at [phone] for redraw instructions. PERFORMED BY: [place] [address] PATHOLOGIST [employer]YE BOILER DANIELLE QUINONES M.D. Performed By: #### S CAN CBC, LDH, CMP #### [address] Comprehensive Metabolic Pane jalil 02-10-2025 Albumin [Mass/Vol] 4.7 g/dL Normal 3.5-5.7 [facility] Comment on above: Performed By: #### S CAN CBC, LDH, CMP #### [address] CREATININE CLR CALC PHARMACY 93.99 Normal [facility] Comment on above: Result Comment: PERF ORMED BY: [place] [address] PATHOLOGIST LYE BOILER DANIELLE QUINONES M.D. Performed By: #### S CAN CBC, LDH, CMP #### [address] GFR/1.73 sq M.predicted MDRD (S/P/Bld) [Vol rate/Area] mL/min/{1.73_m2} Normal [facility] Comment on above: Performed By: #### S CAN CBC, LDH, CMP #### [address] Comprehensive metabolic pane jalil 02-10-2025 Creatinine (U) [Mass/Vol] 0.86 mg/dL 0.70 - 1.30 mg/dL [facility] ESTIMATED GFR [facility] Globulin (S) [Mass/Vol] 2 g/dL [facility] Interpretation and review of laboratory results Abnormal [facility] Creatinine [Mass/volume] in Serum or PlasmaOrdered By: Christian Carlos on 02-10-2025 Creatinine [Mass/Vol] 0.86 mg/dL Normal 0.70-1.30 [facility] Comment on above: Performed By: #### S CAN CBC, LDH, CMP #### [address] Dacrocytes [Presence] in Blo od by Light microscopyOrdered By: Christian Carlos on 02-10-2025 Dacrocytes LM Ql (Bld) Slight [facility] Diff and CBCon 02-10-2025 Mean Corpuscular HGB Conc 35.2 g/dL Normal 32.5-35.6 [facility] Comment on above: Performed By: #### S CAN CBC, LDH, CMP #### [address] Ovalocytes Slight Normal [facility] Comment on above: Performed By: #### S CAN CBC, LDH, CMP #### [address] Platelet Estimate Normal Normal Normal [facility] Comment on above: Performed By: #### S CAN CBC, LDH, CMP #### [address] Platelet Morphology Normal Normal Normal [facility] Comment on above: Result Comment: PERF ORMED BY: [place] [address] PATHOLOGIST LYE BOILER DANIELLE QUINONES M.D. Performed By: #### S CAN CBC, LDH, CMP #### [address] Poikilocytosis Slight Normal [facility] Comment on above: Performed By: #### S CAN CBC, LDH, CMP #### [address] Polychromasia Slight Normal [facility] Comment on above: Performed By: #### S CAN CBC, LDH, CMP #### [address] Tear Drop Cells Slight Normal [facility] Comment on above: Performed By: #### S CAN CBC, LDH, CMP #### [address] White Blood Count 20.7 [CFU]/mL High 4.1-10.5 [facility] Comment on above: Performed By: #### S CAN CBC, LDH, CMP #### [place] [address] [place] Eosinophils Auto (Bld) [#/Vo l]Ordered By: Christian Carlos on 02-10-2025 Eosinophils (Bld) [#/Vol] N/A [facility] Eosinophils/100 WBC Auto (Bl d)Ordered By: Christian Carlos on 02-10-2025 Eosinophils/100 WBC (Bld) N/A [facility] Eosinophils/100 leukocytes i n Blood by Manual countOrdered By: Christian Carlos on 02-10-2025 Eosinophils/100 WBC (Bld) 1 % Normal 1-3 [facility] Comment on above: Performed By: #### S CAN CBC, LDH, CMP #### [facility] [address] [place] [address] Erythrocyte distribution wid th [Ratio] by Automated countOrdered By: Christian Carlos on 02-10-2025 Erythrocyte distribution width (RBC) [Ratio] 13.4 % Normal 12.0-14.8 [facility] Comment on above: Performed By: #### S CAN CBC, LDH, CMP #### [facility] [address] [place] [address] Erythrocyte morphology findi ng [Identifier] in BloodOrdered By: Christian Carlos on 02-10-2025 RBC morphology finding Nom (Bld) N/A [facility] Erythrocytes [#/volume] in B lood by Automated countOrdered By: Christian Carlos on 02-10-2025 RBC (Bld) [#/Vol] 3.98 10*6/uL Normal 3.90-5.60 [facility] Comment on above: Performed By: #### S CAN CBC, LDH, CMP #### [facility] [address] [place] [address] Free K+L LT Chains, Qn, Son 02-10-2025 Free Alex Light Chains, S 16.3 mg/L Normal 3.3-19.4 [facility] Comment on above: Performed By: #### S PE, KAPPA, JIGAR SERUM #### [facility] , Free Lambda Light Chains, S 10.6 mg/L Normal 5.7-26.3 [facility] Comment on above: Performed By: #### S PE, KAPPA, JIGAR SERUM #### [facility] , Alex/Lambda Ratio, S 1.54 Normal 0.26-1.65 [facility] Comment on above: Result Comment: Perf ormed at: - [facility] [place] [id number] Medical Research Tech: Chad Mccall PhD, Phone: [phone] PERFORMED BY: [place] [address] PATHOLOGIST LYE BOILER DANIELLE QUINONES M.D. Performed By: #### S PE, KAPPA, JIGAR SERUM #### [facility] , Glucose [Mass/volume] in Ser um or Plasmaon 02-10-2025 Glucose [Mass/Vol] 106 mg/dL High 70-100 [facility] Comment on above: Random Glucose Refer [...] the diagnosis of Diabetes Mellitus. Result Comment: [place] om Glucose Reference Range is dependent on time and content of last meal. Glucose of more than 200 mg/dL in a nonstressed, ambulatory subject supports the diagnosis of Diabetes Mellitus. ADA recommended reference range Performed By: #### S CAN CBC, LDH, CMP #### [facility] [address] [place] [address] Hematocrit [Volume Fraction] of Blood by Automated countOrdered By: Christian Carlos on 02-10-2025 Hematocrit (Bld) [Volume fraction] 38.6 % Low 38.8-50.0 [facility] Comment on above: Performed By: #### S CAN CBC, LDH, CMP #### [address] Hemoglobin [Mass/volume] in BloodOrdered By: Christian Carlos on 02-10-2025 Hemoglobin (Bld) [Mass/Vol] 13.6 g/dL Normal 13.0-17.0 [facility] Comment on above: Performed By: #### S CAN CBC, LDH, CMP #### [place] [address] [place] INR in Platelet poor plasma by Coagulation assayOrdered By: Christian Carlos on 02-10-2025 INR Coag (PPP) [Relative time] 1.0 {INR} Normal [facility] Comment on above: INR Therapeutic Rang [...] valves: 3 - 4.5 Performed By: #### S CAN CBC, LDH, CMP #### [address] Immunofixation,Serumon 02-10 Immunofixation, Serum Comment Normal . [facility] Comment on above: Result Comment: No m onoclonality detected. Performed By: #### S PE, KAPPA, JIGAR SERUM #### [facility] , Immunoglobulin A, Serum 146 mg/dL Normal 61-437 [facility] Comment on above: Performed By: #### S PE, KAPPA, JIGAR SERUM #### [facility] , Immunoglobulin G 714 mg/dL Normal 603-1613 [facility] Comment on above: Performed By: #### S PE, KAPPA, JIGAR SERUM #### [facility] , Immunoglobulin M, Serum 24 mg/dL Normal 20-172 [facility] Comment on above: Result Comment: Resu lt confirmed on concentration. Performed at: [facility] [id number] Medical Research Tech: Chad Mccall PhD, Phone: [phone] Performed By: #### S PE, KAPPA, JIGAR SERUM #### [facility] , Leukocytes [#/volume] correc christophe for nucleated erythrocytes in Blood by Automated counOrdered By: Christian Carlos on 02-10-2025 WBC corrected for nucl RBC Auto (Bld) [#/Vol] 20.7 10*3/uL High 4.1-10.5 [facility] Leukocytes [#/volume] in Blo od by Automated countOrdered By: Christian Carlos on 02-10-2025 WBC (Bld) [#/Vol] 20.7 10*3/uL High 4.1-10.5 [facility] Comment on above: Performed By: #### S CAN CBC, LDH, CMP #### [facility] [address] [place] [address] Lymphocytes Auto (Bld) [#/Vo l]Ordered By: Christian Carlos on 02-10-2025 Lymphocytes (Bld) [#/Vol] N/A [facility] Lymphocytes/100 WBC Auto (Bl d)Ordered By: Christian Carlos on 02-10-2025 Lymphocytes/100 WBC (Bld) N/A [facility] Lymphocytes/100 leukocytes i n Blood by Manual countOrdered By: Christian Carlos on 02-10-2025 Lymphocytes/100 WBC (Bld) 69 % High 18-42 [facility] Comment on above: Performed By: #### S CAN CBC, LDH, CMP #### [facility] [address] [place] [address] MCH [Entitic mass] by Automa christophe countOrdered By: Christian Carlos on 02-10-2025 MCH (RBC) [Entitic mass] 34.2 pg Normal 27.5-35.2 [facility] Comment on above: Performed By: #### S CAN CBC, LDH, CMP #### [facility] [address] [place] [address] MCHC Auto (RBC) [Mass/Vol]Or dered By: Christian Carlos on 02-10-2025 MCHC (RBC) [Mass/Vol] 35.2 g/dL 32.5-35.6 [facility] MCV [Entitic volume] by Auto mated countOrdered By: Christian Carlos on 02-10-2025 MCV (RBC) [Entitic vol] 97.2 fL Normal 83.5-101 [facility] Comment on above: Performed By: #### S CAN CBC, LDH, CMP #### [facility] [address] [place] [id number] [facility] Monocytes Auto (Bld) [#/Vol] Ordered By: Christian Carlos on 02-10-2025 Monocytes (Bld) [#/Vol] N/A [facility] Monocytes/100 WBC Auto (Bld) Ordered By: Christian Carlos on 02-10-2025 Monocytes/100 WBC (Bld) N/A [facility] Monocytes/100 leukocytes in Blood by Manual countOrdered By: Christian Carlos on 02-10-2025 Monocytes/100 WBC (Bld) 5 % Normal 2-11 [facility] Comment on above: Performed By: #### S CAN CBC, LDH, CMP #### [facility] [address] [place] [id number] [facility] Neutrophils Auto (Bld) [#/Vo l]Ordered By: Christian Carlos on 02-10-2025 Neutrophils (Bld) [#/Vol] N/A [facility] Neutrophils/100 WBC Auto (Bl d)Ordered By: Christian Carlos on 02-10-2025 Neutrophils/100 WBC (Bld) N/A [facility] No Panel InformationOrdered By: Christian Carlos on 02-10-2025 Miscellaneous Pathology Test See comment [facility] Comment on above: See report. Scanned copy available in EMR. Estimated GFR (CKD-EPI) > 60.0 mL/Min [facility] Creatinine Clearance (Chem 93.99 [facility] Protein Electrophoresis M-Danny Not observed g/dL Not Observed [facility] Protein Electrophoresis Note Comment . [facility] Comment on above: Protein electrophore sis scan will follow via computer,mail, or diesel tractor operator delivery. No Panel Informationon 02-10 [facility] Nucleated erythrocytes [Pres ence] in Blood by Automated countOrdered By: Christian Carlos on 02-10-2025 Nucleated RBC Auto Ql (Bld) N/A [facility] Ovalocytes [Presence] in Blo od by Light microscopyOrdered By: Christian Carlos on 02-10-2025 Ovalocytes LM Ql (Bld) [facility] Request for Lab Co rpon 02-10-2025 Pathology Request for Lab Reina Normal [facility] Comment on above: Result Comment: See report. Scanned copy available in EMR. PERFORMED BY: [place] [address] PATHOLOGIST LYE BOILER DANIELLE QUINONES M.D. Performed By: #### S CAN CBC, LDH, CMP #### [facility] [address] [place] [address] Platelet adequacy [Presence] in Blood by Light microscopyOrdered By: Christian Carlos on 02-10-2025 Platelets LM Ql (Bld) Normal Normal [facility] Platelet mean volume [Entiti c volume] in Blood by Automated countOrdered By: Christian Carlos on 02-10-2025 Platelet mean volume (Bld) [Entitic vol] 7.4 fL Normal 6.6-10.1 [facility] Comment on above: Result Comment: PERF ORMED BY: [place] [address] PATHOLOGIST LYE BOILER DANIELLE QUINONES M.D. Performed By: #### S CAN CBC, LDH, CMP #### [facility] [address] [place] [address] Platelet morphology finding [Identifier] in BloodOrdered By: Christian Carlos on 02-10-2025 Platelet morphology finding Nom (Bld) Normal Normal [facility] Platelets [#/volume] in Bloo d by Automated countOrdered By: Christian Carlos on 02-10-2025 Platelets (Bld) [#/Vol] 158 10*3/uL Normal 150-450 [facility] Comment on above: Performed By: #### S CAN CBC, LDH, CMP #### [facility] [address] [place] [address] Poikilocytosis [Presence] in Blood by Light microscopyOrdered By: Christian Carlos on 02-10-2025 Poikilocytosis LM Ql (Bld) [facility] Polychromasia [Presence] in Blood by Light microscopyOrdered By: Christian Carlos on 02-10-2025 Polychromasia LM Ql (Bld) [facility] Potassium [Moles/volume] in Serum or Plasmaon 02-10-2025 Potassium [Moles/Vol] 3.8 mmol/L Normal 3.5-5.1 [facility] Comment on above: Performed By: #### S CAN CBC, LDH, CMP #### [facility] [address] [place] [id number] [facility] Protein Electrophoresis, Ser umon 02-10-2025 Qxxmi-3-Wnzpfwll 0.3 g/dL Normal 0.0-0.4 [facility] Comment on above: Performed By: #### S PE, KAPPA, JIGAR SERUM #### [facility] , Nxxxj-8-Melpyrvo 0.5 g/dL Normal 0.4-1.0 [facility] Comment on above: Performed By: #### S PE, KAPPA, JIGAR SERUM #### [facility] , Beta Globulin 0.9 g/dL Normal 0.7-1.3 [facility] Comment on above: Performed By: #### S PE, KAPPA, IJGAR SERUM #### [facility] , Gamma Globulin 0.7 g/dL Normal 0.4-1.8 [facility] Comment on above: Performed By: #### S PE, KAPPA, JIGAR SERUM #### [facility] , M-Danny Not Observed Normal Not Observed [facility] Comment on above: Performed By: #### S PE, KAPPA, JIGAR SERUM #### [facility] , SPE-Note Comment Normal . [facility] Comment on above: Result Comment: Prot ein electrophoresis scan will follow via computer, mail, or diesel tractor operator delivery. Performed By: #### S PE, KAPPA, JIGAR SERUM #### [facility] , Protein [Mass/volume] in Ser um or Plasmaon 02-10-2025 Protein [Mass/Vol] 6.7 g/dL Normal 6.4-8.9 [facility] Comment on above: Performed By: #### S CAN CBC, LDH, CMP #### [address] Prothrombin time (PT)Ordered By: Christian Carlos on 02-10-2025 PT Coag (PPP) [Time] 11.1 s Normal 9.0-12.9 [facility] Comment on above: A hematocrit value g reater than 55% may lead to inaccurate results in coagulation testing. Patients having hematocrit values >55% require a special collection tube for coagulation studies. Please contact the laboratory at [phone] for redraw instructions. Order Comment: STAT FOR CT Result Comment: A he matocrit value greater than 55% may lead to inaccurate results in coagulation testing. Patients having hematocrit values >55% require a special collection tube for coagulation studies. Please contact the laboratory at [phone] for redraw instructions. Performed By: #### S CAN CBC, LDH, CMP #### [address] Segmented neutrophils/100 le ukocytes in Blood by Manual countOrdered By: Christian Carlos on 02-10-2025 Segmented neutrophils/100 WBC (Bld) 25 % Low 50-70 [facility] Comment on above: Performed By: #### S CAN CBC, LDH, CMP #### [address] Serum free kappa light chain measurementOrdered By: Christian Carlos on 02-10-2025 Immunoglobulin light chains.kappa.free (S) [Mass/Vol] 16.3 mg/L 3.3-19.4 [facility] Serum globulin measurement ( mass/volume)Ordered By: Christian Carlos on 02-10-2025 Globulin (S) [Mass/Vol] 2.3 g/dL Normal 2.2-3.9 [facility] Comment on above: Performed By: #### S PE, KAPPA, JIGAR SERUM #### [facility] , Serum globulin measurement b y calculation (mass/volume)Ordered By: Christian Carlos on 02-10-2025 Globulin (S) [Mass/Vol] 2.0 g/dL Normal [facility] Comment on above: Performed By: #### S CAN CBC, LDH, CMP #### [facility] [address] Serum immunoglobulin free ka ppa light chains/immunoglobulin free lambda light chainsOrdered By: Christian Carlos on 02-10-2025 Immunoglobulin light chains.kappa.free/Immu noglobulin light chains.lambda.free (S) [Mass ratio] 1.54 0.26-1.65 [facility] Comment on above: Performed at: [facility] [address] [id number] Director: Chad Mccall PhD, Phone: [phone] Serum or plasma IgA measurem ent (mass/volume)Ordered By: Christian Carlos on 02-10-2025 IgA [Mass/Vol] 146 mg/dL 61-437 [facility] Serum or plasma IgG measurem ent (mass/volume)Ordered By: Christian Carlos on 02-10-2025 IgG [Mass/Vol] 714 mg/dL 603-1613 [facility] Serum or plasma IgM measurem ent (mass/volume)Ordered By: Christian Carlos on 02-10-2025 IgM [Mass/Vol] 24 mg/dL 20-172 [facility] Comment on above: Result confirmed on concentration.Performed at: [facility] [address] [id number] Director: Chad Mccall PhD, Phone: [phone] Serum or plasma albumin kirk urement (mass/volume)Ordered By: Christian Calros on 02-10-2025 Albumin [Mass/Vol] 4.0 g/dL Normal 2.9-4.4 [facility] Comment on above: Performed By: #### S PE, KAPPA, JIGAR SERUM #### [facility] , Serum or plasma albumin/glob ulin mass ratioon 02-10-2025 Albumin/Globulin [Mass ratio] 2.4 {ratio} Normal [facility] Comment on above: Performed By: #### S CAN CBC, LDH, CMP #### [facility] [address] Serum or plasma albumin/glob ulin mass ratioOrdered By: Chrisitan Carlos on 02-10-2025 Albumin/Globulin [Mass ratio] 1.7 {ratio} Normal 0.7-1.7 [facility] Comment on above: Performed By: #### S PE, KAPPA, JIGAR SERUM #### [facility] , Serum or plasma alpha 1 glob ulin measurement by electrophoresis (mass/volume)Ordered By: Christian Carlos on 02-10-2025 Alpha 1 globulin Elph [Mass/Vol] 0.3 g/dL 0.0-0.4 [facility] Serum or plasma alpha 2 glob ulin measurement by electrophoresis (mass/volume)Ordered By: Christian Carlos on 02-10-2025 Alpha 2 globulin Elph [Mass/Vol] 0.5 g/dL 0.4-1.0 [facility] Serum or plasma anion gap de terminationon 02-10-2025 Anion gap [Moles/Vol] 9.2 mmol/L Normal 6.0-15.0 [facility] Comment on above: Performed By: #### S CAN CBC, LDH, CMP #### [facility] [address] Serum or plasma beta globuli n measurement by electrophoresis (mass/volume)Ordered By: Christian Carlos on 02-10-2025 Beta globulin Elph [Mass/Vol] 0.9 g/dL 0.7-1.3 [facility] Serum or plasma gamma globul in measurement by electrophoresis (mass/volume)Ordered By: Christian Carlos on 02-10-2025 Gamma globulin Elph [Mass/Vol] 0.7 g/dL 0.4-1.8 [facility] Serum or plasma immunoglobul in free lambda light chains measurement (mass/volume)Ordered By: Christian Carlos on 02-10-2025 Immunoglobulin light chains.lambda.free [Mass/Vol] 10.6 mg/L 5.7-26.3 [facility] Serum total protein measurem entOrdered By: Christian Carlos on 02-10-2025 Protein [Mass/Vol] 6.3 g/dL Normal 6.0-8.5 [facility] Comment on above: Performed By: #### S PE, KAPPA, JIGAR SERUM #### [facility] , Sodium [Moles/volume] in Ser um or Plasmaon 02-10-2025 Sodium [Moles/Vol] 140 mmol/L Normal 136-145 [facility] Comment on above: Performed By: #### S CAN CBC, LDH, CMP #### [facility] [address] [place] [address] [place] Urea nitrogen [Mass/volume] in Serum or Plasmaon 02-10-2025 Urea nitrogen [Mass/Vol] 22 mg/dL Normal 7-25 [facility] Comment on above: Performed By: #### S CAN CBC, LDH, CMP #### [facility] [address] [place] [address] [place] aPTT in Platelet poor plasma by Coagulation assayOrdered By: Christian Carlos on 02-10-2025 aPTT Coag (PPP) [Time] 30.1 s 25.1-36.5 [facility] Comment on above: A hematocrit value g reater than 55% may lead to inaccurate results in coagulation testing. Patients having hematocrit values >55% require a special collection tube for coagulation studies. Please contact the laboratory at [phone] for redraw instructions. FLOWCYTOMETRY NEOGENOMICon 0 01-18-2025 FL[facility]OMETRY [facility] Comment on above: See report. Scanned copy available in EMR. [facility] Alanine aminotransferase [En zymatic activity/volume] in Serum or PlasmaOrdered By: Christian Carlos on 01-13-2025 ALT [Catalytic activity/Vol] 30 U/L Normal 7-52 [facility] Comment on above: Performed By: #### S CAN CBC, LDH, CMP #### [facility] [address] [place] [id number] [place] Albumin [Mass/volume] in Ser um or Plasma by Bromocresol green (BCG) dye binding methoOrdered By: Christian Carlos on 01-13-2025 Albumin BCG dye [Mass/Vol] 4.4 g/dL 3.5-5.7 [facility] Alkaline phosphatase [Enzyma tic activity/volume] in Serum or PlasmaOrdered By: Christian Carlos on 01-13-2025 ALP [Catalytic activity/Vol] 86 U/L Normal 34-104 [facility] Comment on above: Performed By: #### S CAN CBC, LDH, CMP #### [facility] [address] Aspartate aminotransferase [ Enzymatic activity/volume] in Serum or PlasmaOrdered By: Christian Carlos on 01-13-2025 AST [Catalytic activity/Vol] 33 U/L Normal 13-39 [facility] Comment on above: Performed By: #### S CAN CBC, LDH, CMP #### [facility] [address] [place] [address] [place] Band form neutrophils/100 le ukocytes in Blood by Manual countOrdered By: Christian Carlos on 01-13-2025 Band form neutrophils/100 WBC (Bld) 2 % Normal 0-5 [facility] Comment on above: Performed By: #### S CAN CBC, LDH, CMP #### [facility] [address] [place] [address] [place] Basophils Auto (Bld) [#/Vol] Ordered By: Christian Carlos on 01-13-2025 Basophils (Bld) [#/Vol] N/A [facility] Basophils/100 WBC Auto (Bld) Ordered By: Christian Carlos on 01-13-2025 Basophils/100 WBC (Bld) N/A [facility] Bilirubin.total [Mass/volume ] in Serum or PlasmaOrdered By: Christian Carlos on 01-13-2025 Bilirubin [Mass/Vol] 1.7 mg/dL High 0.3-1.0 [facility] Comment on above: Samples from patient [...] #### S CAN CBC, LDH, CMP #### [facility] [address] [place] [address] Calcium [Mass/volume] in Ser um or PlasmaOrdered By: Christian Carlos on 01-13-2025 Calcium [Mass/Vol] 9.0 mg/dL Normal 8.6-10.3 [facility] Comment on above: Performed By: #### S CAN CBC, LDH, CMP #### [address] Carbon dioxide, total [Moles /volume] in Serum or PlasmaOrdered By: Christian Carlos on 01-13-2025 CO2 [Moles/Vol] 33.8 mmol/L High 21.0-31.0 [facility] Comment on above: Performed By: #### S CAN CBC, LDH, CMP #### [address] Chloride [Moles/volume] in S hesham or PlasmaOrdered By: Christian Carlos on 01-13-2025 Chloride [Moles/Vol] 104 mmol/L Normal 98-107 [facility] Comment on above: Performed By: #### S CAN CBC, LDH, CMP #### [place] [id number] [facility] Comprehensive Metabolic Pane jalil 01-13-2025 Albumin [Mass/Vol] 4.4 g/dL Normal 3.5-5.7 [facility] Comment on above: Performed By: #### S CAN CBC, LDH, CMP #### [address] Creatinine Clr Calc Pharmacy 85.09 Normal [facility] Comment on above: Performed By: #### S CAN CBC, LDH, CMP #### [facility] [address] [place] [id number] [facility] GFR/1.73 sq M.predicted MDRD (S/P/Bld) [Vol rate/Area] mL/min/{1.73_m2} Normal [facility] Comment on above: Performed By: #### S CAN CBC, LDH, CMP #### [facility] [address] [place] [address] [facility] Comprehensive metabolic pane jalil 01-13-2025 Albumin [Mass/Vol] 4.4 g/dL 3.5 - 5.7 g/dL [facility] Albumin/Globulin [Mass ratio] 2.6 {ratio} [facility] ALP [Catalytic activity/Vol] 86 U/L 34 - 104 U/L [facility] ALT [Catalytic activity/Vol] 30 U/L 7 - 52 U/L [facility] Anion gap [Moles/Vol] 7.3 mmol/L 6.0 - 15.0 meq/L [facility] AST [Catalytic activity/Vol] 33 U/L 13 - 39 U/L [facility] Bilirubin [Mass/Vol] 1.7 mg/dL High 0.3 - 1 .0 mg/dL [facility] Comment on above: Samples from patient s who have taken Naproxen have shown spurious elevation in Total Bilirubin levels. A metabolite of Naproxen, O-desmethylnaproxen, has been shown to interfere with the Souravik-Kenyattaf method for measuring Total Bilirubin. Calcium [Mass/Vol] 9 mg/dL 8.6 - 10. 3 mg/dL [facility] Chloride [Moles/Vol] 104 mmol/L 98 - 10 7 mmol/L [facility] CO2 [Moles/Vol] 33.8 mmol/L High 21.0 - 31.0 mmol/L [facility] Creatinine (U) [Mass/Vol] 0.95 mg/dL 0.70 - 1.30 mg/dL [facility] CREATININE CLR CALC PHARMACY 85.09 [facility] ESTIMATED GFR mL/Min [facility] Globulin (S) [Mass/Vol] 1.7 g/dL [facility] Glucose [Mass/Vol] 95 mg/dL 70 - 100 mg/dL [facility] Comment on above: Random Glucose Refer ence Range is dependent on time and content of last meal. Glucose of more than 200 mg/dL in a nonstressed, ambulatory subject supports the diagnosis of Diabetes Mellitus. ADA recommended reference range Potassium [Moles/Vol] 4.1 mmol/L 3.5 - 5.1 mmol/L [facility] Protein [Mass/Vol] 6.1 g/dL Low 6.4 - 8.9 g/dL [facility] Sodium [Moles/Vol] 141 mmol/L 136 - 145 mmol/L [facility] Urea nitrogen [Mass/Vol] 14 mg/dL 7 - 25 mg/dL [facility] Creatinine [Mass/volume] in Serum or PlasmaOrdered By: Christian Carlos on 01-13-2025 Creatinine [Mass/Vol] 0.95 mg/dL Normal 0.70-1.30 [facility] Comment on above: Performed By: #### S CAN CBC, LDH, CMP #### [address] Diff and CBCon 01-13-2025 Giant Platelet Tally 1 /100{WBC} Normal [facility] Comment on above: Performed By: #### S CAN CBC, LDH, CMP #### [address] Mean Corpuscular HGB Conc 35.6 g/dL Normal 32.5-35.6 [facility] Comment on above: Performed By: #### S CAN CBC, LDH, CMP #### [address] Platelet Estimate Decreased Normal Normal [facility] Comment on above: Performed By: #### S CAN CBC, LDH, CMP #### [address] Platelet Morphology Normal Normal Normal [facility] Comment on above: Result Comment: PERF ORMED BY: [place] [address] PATHOLOGIST LYE BOILER SUSAN FREGOSO M.D. Performed By: #### S CAN CBC, LDH, CMP #### [address] Reactive Lymphocytes 2 % Normal 0-12 [facility] Comment on above: Performed By: #### S CAN CBC, LDH, CMP #### [address] Eosinophils Auto (Bld) [#/Vo l]Ordered By: Christian Carlos on 01-13-2025 Eosinophils (Bld) [#/Vol] N/A [facility] Eosinophils/100 WBC Auto (Bl d)Ordered By: Christian Carlos on 01-13-2025 Eosinophils/100 WBC (Bld) N/A [facility] Eosinophils/100 leukocytes i n Blood by Manual countOrdered By: Christian Carlos on 01-13-2025 Eosinophils/100 WBC (Bld) 4 % High 1-3 [facility] Comment on above: Performed By: #### S CAN CBC, LDH, CMP #### [address] Erythrocyte distribution wid th [Ratio] by Automated countOrdered By: Christian Carlos on 01-13-2025 Erythrocyte distribution width (RBC) [Ratio] 14.0 % Normal 12.0-14.8 [facility] Comment on above: Performed By: #### S CAN CBC, LDH, CMP #### [address] Erythrocyte morphology findi ng [Identifier] in BloodOrdered By: Christian Carlos on 01-13-2025 RBC morphology finding Nom (Bld) Normal Normal Normal [facility] Comment on above: Performed By: #### S CAN CBC, LDH, CMP #### [address] Erythrocytes [#/volume] in B lood by Automated countOrdered By: Christian Carlos on 01-13-2025 RBC (Bld) [#/Vol] 4.15 10*6/uL Normal 3.90-5.60 [facility] Comment on above: Performed By: #### S CAN CBC, LDH, CMP #### [address] Flowcytometry Neogenomicon 0 01-13-2025 Flowcytometry Neogenomic Normal [facility] Comment on above: Result Comment: See report. Scanned copy available in EMR. PERFORMED BY: [place] [address] PATHOLOGIST [employer]YE BOILER DANIELLE QUINONES M.D. Performed By: #### F LOW NEOGENOMIC #### [place] [address] [place] Giant platelets/100 leukocyt es [Ratio] in Blood by Manual countOrdered By: Christian Carlos on 01-13-2025 Giant platelets/100 WBC Manual cnt (Bld) [Ratio] 1 /100{WBC} [facility] Glucose [Mass/volume] in Ser um or PlasmaOrdered By: Christian Carlos on 01-13-2025 Glucose [Mass/Vol] 95 mg/dL Normal 70-100 [facility] Comment on above: ADA recommended refe rence rangeRandom Glucose Reference Range is dependent on time and content of last meal. Glucose of more than 200 mg/dL in a nonstressed, ambulatory subject supports the diagnosis of Diabetes Mellitus. Result Comment: [place] om Glucose Reference Range is dependent on time and content of last meal. Glucose of more than 200 mg/dL in a nonstressed, ambulatory subject supports the diagnosis of Diabetes Mellitus. ADA recommended reference range Performed By: #### S CAN CBC, LDH, CMP #### [address] Hematocrit [Volume Fraction] of Blood by Automated countOrdered By: Christian Carlos on 01-13-2025 Hematocrit (Bld) [Volume fraction] 38.7 % Low 38.8-50.0 [facility] Comment on above: Performed By: #### S CAN CBC, LDH, CMP #### [address] Hemoglobin [Mass/volume] in BloodOrdered By: Christian Carlos on 01-13-2025 Hemoglobin (Bld) [Mass/Vol] 13.8 g/dL Normal 13.0-17.0 [facility] Comment on above: Performed By: #### S CAN CBC, LDH, CMP #### [address] [place] [address] [place] LDH Lactate Dehydrogenaseon 01-13-2025 LDH Lactate Dehydrogenase 310 U/L High 140-271 [facility] Comment on above: Result Comment: PERF ORMED BY: [place] [address] PATHOLOGIST [employer]YE BOILER SUSAN FREGOSO M.D. Performed By: #### S CAN CBC, LDH, CMP #### [facility] [address] [place] [address] LDH Lactate to pyruvate reac tion [Catalytic activity/Vol]on 01-13-2025 LDH LACTATE DEHYDROGENASE 310 U/L High 140 - 271 U/L [facility] Lactate dehydrogenase [Enzym atic activity/volume] in Serum or Plasma by Lactate to pyOrdered By: Christian Carlos on 01-13-2025 LDH Lactate to pyruvate reaction [Catalytic activity/Vol] 310 U/L High 140-271 [facility] Leukocytes [#/volume] correc christophe for nucleated erythrocytes in Blood by Automated counOrdered By: Christian Carlos on 01-13-2025 WBC corrected for nucl RBC Auto (Bld) [#/Vol] 16.9 10*3/uL High 4.1-10.5 [facility] Leukocytes [#/volume] in Blo od by Automated countOrdered By: Christian Carlos on 01-13-2025 WBC (Bld) [#/Vol] 16.9 10*3/uL High 4.1-10.5 [facility] Comment on above: Performed By: #### S CAN CBC, LDH, CMP #### [facility] [address] [place] [address] Lymphocytes Auto (Bld) [#/Vo l]Ordered By: Christian Carlos on 01-13-2025 Lymphocytes (Bld) [#/Vol] N/A [facility] Lymphocytes/100 WBC Auto (Bl d)Ordered By: Christian Carlos on 01-13-2025 Lymphocytes/100 WBC (Bld) N/A [facility] Lymphocytes/100 leukocytes i n Blood by Manual countOrdered By: Christian Carlos on 01-13-2025 Lymphocytes/100 WBC (Bld) 48 % High 18-42 [facility] Comment on above: Performed By: #### S CAN CBC, LDH, CMP #### [facility] [address] [place] [address] MCH [Entitic mass] by Automa christophe countOrdered By: Christian Carlos on 01-13-2025 MCH (RBC) [Entitic mass] 33.1 pg Normal 27.5-35.2 [facility] Comment on above: Performed By: #### S CAN CBC, LDH, CMP #### [facility] [address] [place] [address] MCHC Auto (RBC) [Mass/Vol]Or dered By: Chrsitian Carlos on 01-13-2025 MCHC (RBC) [Mass/Vol] 35.6 g/dL 32.5-35.6 [facility] MCV [Entitic volume] by Auto mated countOrdered By: Christian Carlos on 01-13-2025 MCV (RBC) [Entitic vol] 93.1 fL Normal 83.5-101 [facility] Comment on above: Performed By: #### S CAN CBC, LDH, CMP #### [facility] [address] [place] [address] Monocytes Auto (Bld) [#/Vol] Ordered By: Christian Carlos on 01-13-2025 Monocytes (Bld) [#/Vol] N/A [facility] Monocytes/100 WBC Auto (Bld) Ordered By: Christian Carlos on 01-13-2025 Monocytes/100 WBC (Bld) N/A [facility] Monocytes/100 leukocytes in Blood by Manual countOrdered By: Christian Carlos on 01-13-2025 Monocytes/100 WBC (Bld) 6 % Normal 2-11 [facility] Comment on above: Performed By: #### S CAN CBC, LDH, CMP #### [facility] [address] [place] [address] Neutrophils Auto (Bld) [#/Vo l]Ordered By: Christian Carlos on 01-13-2025 Neutrophils (Bld) [#/Vol] N/A [facility] Neutrophils/100 WBC Auto (Bl d)Ordered By: Christian Carlos on 01-13-2025 Neutrophils/100 WBC (Bld) N/A [facility] No Panel Informationon 01-13 Interpretation and review of laboratory results Abnormal [facility] No Panel InformationOrdered By: Christian Carlos on 01-13-2025 Estimated GFR (CKD-EPI) > 60.0 mL/Min [facility] Creatinine Clearance (Chem 85.09 [facility] Nucleated erythrocytes [Pres ence] in Blood by Automated countOrdered By: Christian Carlos on 01-13-2025 Nucleated RBC Auto Ql (Bld) N/A [facility] Platelet adequacy [Presence] in Blood by Light microscopyOrdered By: Christian Carlos on 01-13-2025 Platelets LM Ql (Bld) Decreased Normal [facility] Platelet mean volume [Entiti c volume] in Blood by Automated countOrdered By: Christian Carlos on 01-13-2025 Platelet mean volume (Bld) [Entitic vol] 7.3 fL Normal 6.6-10.1 [facility] Comment on above: Performed By: #### S CAN CBC, LDH, CMP #### [facility] [address] Platelet morphology finding [Identifier] in BloodOrdered By: Christian Carlos on 01-13-2025 Platelet morphology finding Nom (Bld) Normal Normal [facility] Platelets [#/volume] in Bloo d by Automated countOrdered By: Christian Carlos on 01-13-2025 Platelets (Bld) [#/Vol] 136 10*3/uL Low 150-450 [facility] Comment on above: Performed By: #### S CAN CBC, LDH, CMP #### [facility] [address] [place] [address] [place] Potassium [Moles/volume] in Serum or PlasmaOrdered By: Christian Carlos on 01-13-2025 Potassium [Moles/Vol] 4.1 mmol/L Normal 3.5-5.1 [facility] Comment on above: Performed By: #### S CAN CBC, LDH, CMP #### [address] Protein [Mass/volume] in Ser um or PlasmaOrdered By: Christian Carlos on 01-13-2025 Protein [Mass/Vol] 6.1 g/dL Low 6.4-8.9 [facility] Comment on above: Performed By: #### S CAN CBC, LDH, CMP #### [address] Segmented neutrophils/100 le ukocytes in Blood by Manual countOrdered By: Christian Carlos on 01-13-2025 Segmented neutrophils/100 WBC (Bld) 39 % Low 50-70 [facility] Comment on above: Performed By: #### S CAN CBC, LDH, CMP #### [address] Serum globulin measurement b y calculation (mass/volume)Ordered By: Christian Carlos on 01-13-2025 Globulin (S) [Mass/Vol] 1.7 g/dL [facility] Comment on above: Performed By: #### S CAN CBC, LDH, CMP #### [address] Serum or plasma albumin/glob ulin mass ratioOrdered By: Christian Carlos on 01-13-2025 Albumin/Globulin [Mass ratio] 2.6 {ratio} [facility] Comment on above: Performed By: #### S CAN CBC, LDH, CMP #### [address] Serum or plasma anion gap de terminationOrdered By: Christian Carlos on 01-13-2025 Anion gap [Moles/Vol] 7.3 mmol/L Normal 6.0-15.0 [facility] Comment on above: Performed By: #### S CAN CBC, LDH, CMP #### [address] Sodium [Moles/volume] in Ser um or PlasmaOrdered By: Christian Carlos on 01-13-2025 Sodium [Moles/Vol] 141 mmol/L Normal 136-145 [facility] Comment on above: Performed By: #### S CAN CBC, LDH, CMP #### [facility] [address] [place] [address] [place] Urea nitrogen [Mass/volume] in Serum or PlasmaOrdered By: Christian Carlos on 01-13-2025 Urea nitrogen [Mass/Vol] 14 mg/dL Normal 03-18 [facility] Comment on above: Performed By: #### S CAN CBC, LDH, CMP #### [facility] [address] [place] [address] [place] Variant lymphocytes/100 WBC Manual cnt (Bld)Ordered By: Christian Carlos on 01-13-2025 Variant lymphocytes/100 WBC (Bld) 2 % 0-12 [facility] A1C with Estimated Average G luon 11-30-2024 Glucose [Mass/Vol] 94 mg/dL Normal [facility] Comment on above: Result Comment: PERF ORMED BY: [place] [address] PATHOLOGIST [employer]YE BOILER SUSAN FREGOSO M.D. Performed By: #### S CAN CBC, LDH, CMP #### [facility] [address] Alanine aminotransferase [En zymatic activity/volume] in Serum or PlasmaOrdered By: Russell Gómez on 11-30-2024 ALT [Catalytic activity/Vol] Alanine aminotransferase [Enzymatic activity/volume] in Serum or Plasma [facility] ALT [Catalytic activity/Vol] 28 U/L Normal [facility] Comment on above: Performed By: #### L IPID, CHC CBC, EMP PSA, A1C WTH eA, CMP #### [facility] [address] [place] [address] [place] Albumin [Mass/volume] in Ser um or Plasma by Bromocresol green (BCG) dye binding methoOrdered By: Russell Gómez on 11-30-2024 Albumin BCG dye [Mass/Vol] Albumin [Mass/volume] in Serum or Plasma by Bromocresol green (BCG) dye binding metho 3.5-5.7 [facility] Albumin BCG dye [Mass/Vol] 4.3 g/dL 3.5-5.7 [facility] Alkaline phosphatase [Enzyma tic activity/volume] in Serum or PlasmaOrdered By: Russell Gómez on 11-30-2024 ALP [Catalytic activity/Vol] Alkaline phosphatase [Enzymatic activity/volume] in Serum or Plasma 34-104 [facility] ALP [Catalytic activity/Vol] 85 U/L Normal 34-104 [facility] Comment on above: Result Comment: PERF ORMED BY: [place] [address] PATHOLOGIST [employer]YE BOILER SUSAN FREGOSO M.D. Performed By: #### L IPID, CHC CBC, EMP PSA, A1C WT eA, CMP #### [address] Aspartate aminotransferase [ Enzymatic activity/volume] in Serum or PlasmaOrdered By: Russell Gómez on 11-30-2024 AST [Catalytic activity/Vol] Aspartate aminotransferase [Enzymatic activity/volume] in Serum or Plasma 13-39 [facility] AST [Catalytic activity/Vol] 29 U/L Normal 13-39 [facility] Comment on above: Performed By: #### L IPID, CHC CBC, EMP PSA, A1C WT eA, CMP #### [address] Basophils Auto (Bld) [#/Vol] Ordered By: Russell Gómez on 11-30-2024 Basophils (Bld) [#/Vol] Automated basophil count 0.0-0.2 [facility] Basophils [#/volume] in Bloo d by Automated countOrdered By: Russell Gómez on 11-30-2024 Basophils (Bld) [#/Vol] 0.0 10*3/uL Normal 0.0-0.2 [facility] Comment on above: Result Comment: PERF ORMED BY: [place] [address] PATHOLOGIST [employer]YE BOILER SUSAN FREGOSO M.D. Performed By: #### S CAN CBC, LDH, CMP #### [facility] [address] [place] [address] [place] Basophils/100 WBC Auto (Bld) Ordered By: Russell Gómez on 11-30-2024 Basophils/100 WBC (Bld) Automated basophil % . [facility] Basophils/100 leukocytes in Blood by Automated countOrdered By: Russell Gómez on 11-30-2024 Basophils/100 WBC (Bld) 0.2 % Normal . [facility] Comment on above: Performed By: #### S CAN CBC, LDH, CMP #### [facility] [address] Bilirubin.total [Mass/volume ] in Serum or PlasmaOrdered By: Russell Gómez on 11-30-2024 Bilirubin [Mass/Vol] Bilirubin.total [Mass/volume] in Serum or Plasma 0.3-1.0 [facility] Bilirubin [Mass/Vol] 1.0 mg/dL Normal 0.3-1.0 [facility] Comment on above: Performed By: #### L IPID, CHC CBC, EMP PSA, A1C WTH eA, CMP #### [facility] [address] Blood estimated average gluc ose determination by estimation from glycated hemoglobinOrdered By: Russell Gómez on 11-30-2024 Average glucose Estimated from glycated hemoglobin (Bld) [Mass/Vol] Glucose mean value [Mass/volume] in Blood Estimated from glycated hemoglobin [facility] Average glucose Estimated from glycated hemoglobin (Bld) [Mass/Vol] 94 mg/dL [facility] Calcium [Mass/volume] in Ser um or PlasmaOrdered By: Russell Gómez on 11-30-2024 Calcium [Mass/Vol] Calcium [Mass/volume ] in Serum or Plasma 8.6-10.3 [facility] Calcium [Mass/Vol] 9.5 mg/dL Normal 8.6-10.3 [facility] Comment on above: Performed By: #### L IPID, CHC CBC, EMP PSA, A1C WTH eA, CMP #### [facility] [address] Carbon dioxide, total [Moles /volume] in Serum or PlasmaOrdered By: Russell Gómez on 11-30-2024 CO2 [Moles/Vol] Carbon dioxide, tota l [Moles/volume] in Serum or Plasma High 21.0-31.0 [facility] CO2 [Moles/Vol] 34.1 mmol/L High 21.0-31.0 [facility] Comment on above: Performed By: #### L IPID, CHC CBC, EMP PSA, A1C [facility] eA, CMP #### [facility] [address] [place] [id number] [place] Chloride [Moles/volume] in S hesham or PlasmaOrdered By: Russell Gómez on 11-30-2024 Chloride [Moles/Vol] Chloride [Moles/vol ume] in Serum or Plasma 98-107 [facility] Chloride [Moles/Vol] 104 mmol/L Normal 98-107 [facility] Comment on above: Performed By: #### L IPID, CHC CBC, EMP PSA, A1C [facility] eA, CMP #### [facility] [address] [place] [id number] [place] Cholesterol [Mass/volume] in Serum or PlasmaOrdered By: Russell Gómez on 11-30-2024 Cholesterol [Mass/Vol] Cholesterol [Mass /volume] in Serum or Plasma 140-200 [facility] Comment on above: Chol less than 200 m g/dl low riskChol 201-239 mg/dl borderline riskChol 240 mg/dl and greater high risk Cholesterol [Mass/Vol] 169 mg/dL Normal 140-200 [facility] Comment on above: Chol less than 200 m g/dl low riskChol 201-239 mg/dl borderline riskChol 240 mg/dl and greater high risk Result Comment: Chol less than 200 mg/dl low risk Chol 201-239 mg/dl borderline risk Chol 240 mg/dl and greater high risk Performed By: #### S CAN CBC, LDH, CMP #### [facility] [address] [place] [id number] [place] Cholesterol in HDL [Mass/vol ume] in Serum or PlasmaOrdered By: Russell Gómez on 11-30-2024 Cholesterol in HDL [Mass/Vol] Serum or plasma high density lipoprotein (HDL) cholesterol measurement [facility] Comment on above: HDL CHOL ATP-III CLA SSIFICATION Cardiovascular RiskHDL > or equal to 60 mg/dL LOWHDL < 40 mg/dL HIGH Cholesterol in HDL [Mass/Vol] 59 mg/dL Normal [facility] Comment on above: HDL CHOL ATP-III CLA SSIFICATION Cardiovascular RiskHDL > or equal to 60 mg/dL LOWHDL < 40 mg/dL HIGH Result Comment: HDL CHOL ATP-III CLASSIFICATION Cardiovascular Risk HDL > or equal to 60 mg/dL LOW HDL < 40 mg/dL HIGH Performed By: #### S CAN CBC, LDH, CMP #### [facility] [address] [place] [address] [facility] Cholesterol in LDL Calc [Mas s/Vol]Ordered By: Russell Gómez on 11-30-2024 Cholesterol in LDL [Mass/Vol] Cholesterol in LDL [Mass/volume] in Serum or Plasma by calculation [facility] Comment on above: LDL ATP III CLASSIFI CATIONLDL less than 100 mg/dL OptimalLDL 100-129 mg/dL Near or above optimalLDL 130-159 mg/dL Borderline highLDL 160-189 mg/dL HighLDL greater than 189 mg/dL Very high Cholesterol in LDL [Mass/Vol] 93 mg/dL 0 [facility] Comment on above: LDL ATP III CLASSIFI CATIONLDL less than 100 mg/dL OptimalLDL 100-129 mg/dL Near or above optimalLDL 130-159 mg/dL Borderline highLDL 160-189 mg/dL HighLDL greater than 189 mg/dL Very high Cholesterol in VLDL Calc [Ma ss/Vol]Ordered By: Russell Gómez on 11-30-2024 Cholesterol in VLDL [Mass/Vol] Cholesterol in VLDL [Mass/volume] in Serum or Plasma by calculation [facility] Cholesterol in VLDL [Mass/Vol] 17 mg/dL [facility] Complete Blood Count no refl exon 11-30-2024 Mean Corpuscular HGB Conc 34.3 g/dL Normal 32.5-35.6 [facility] Comment on above: Performed By: #### S CAN CBC, LDH, CMP #### [facility] [address] [place] [id number] [place] NRBC% 0.2 /100{WBC} Normal 0-0.5 [facility] Comment on above: Performed By: #### S CAN CBC, LDH, CMP #### [address] Comprehensive Metabolic Pane jalil 11-30-2024 Albumin [Mass/Vol] 4.3 g/dL Normal 3.5-5.7 [facility] Comment on above: Performed By: #### L IPID, CHC CBC, EMP PSA, A1C WTH eA, CMP #### [address] GFR/1.73 sq M.predicted MDRD (S/P/Bld) [Vol rate/Area] mL/min/{1.73_m2} Normal [facility] Comment on above: Performed By: #### L IPID, CHC CBC, EMP PSA, A1C WTH eA, CMP #### [address] Creatinine [Mass/volume] in Serum or PlasmaOrdered By: Russell Gómez on 11-30-2024 Creatinine [Mass/Vol] Creatinine [Mass/v olume] in Serum or Plasma 0.70-1.30 [facility] Creatinine [Mass/Vol] 0.81 mg/dL Normal 0.70-1.30 [facility] Comment on above: Performed By: #### L IPID, CHC CBC, EMP PSA, A1C WTH eA, CMP #### [address] Employee PSA Totalon 025 PSA Total ([facility] Orders) 0.650 ng/mL Normal 0.000-4.00 0 [facility] Comment on above: Result Comment: [place] tumor marker results determined by assays using different manufacturers or methods may not be comparable. [facility] dog hair clipper and method: HARJIT CareCam Health SystemsEL DXI, CHEMILUMINESCENT IMMUNOASSAY. PERFORMED BY: [place] [address] PATHOLOGIST LYE BOILER SUSAN FREGOSO M.D. Performed By: #### L IPID, CHC CBC, EMP PSA, A1C WTH eA, CMP #### [facility] [address] Eosinophils Auto (Bld) [#/Vo l]Ordered By: Russell Gómez on 11-30-2024 Eosinophils (Bld) [#/Vol] Automated eosinophil count 0.0-0.45 [facility] Eosinophils [#/volume] in Bl ood by Automated countOrdered By: Russell Gómez on 11-30-2024 Eosinophils (Bld) [#/Vol] 0.2 10*3/uL Normal 0.0-0.45 [facility] Comment on above: Performed By: #### S CAN CBC, LDH, CMP #### [facility] [address] Eosinophils/100 WBC Auto (Bl d)Ordered By: Russell Gómez on 11-30-2024 Eosinophils/100 WBC (Bld) Automated eosinophil % . [facility] Eosinophils/100 leukocytes i n Blood by Automated countOrdered By: Russell Gómez on 11-30-2024 Eosinophils/100 WBC (Bld) 1.1 % Normal . [facility] Comment on above: Performed By: #### S CAN CBC, LDH, CMP #### [facility] [address] Erythrocyte distribution wid th Auto (RBC) [Ratio]Ordered By: Russell Gómez on 11-30-2024 Erythrocyte distribution width (RBC) [Ratio] Erythrocyte distribution width [Ratio] by Automated count 12.0-14.8 [facility] Erythrocyte distribution wid th [Ratio] by Automated countOrdered By: Russell Gómez on 11-30-2024 Erythrocyte distribution width (RBC) [Ratio] 13.2 % Normal 12.0-14.8 [facility] Comment on above: Performed By: #### S CAN CBC, LDH, CMP #### [facility] [address] Erythrocytes [#/volume] in B lood by Automated countOrdered By: Russell Gómez on 11-30-2024 RBC (Bld) [#/Vol] 4.67 10*6/uL Normal 3.90-5.60 [facility] Comment on above: Performed By: #### S CAN CBC, LDH, CMP #### [facility] [address] Globulin Calc (S) [Mass/Vol] Ordered By: Russell Gómez on 11-30-2024 Globulin (S) [Mass/Vol] Serum globulin measurement by calculation (mass/volume) [facility] Glucose [Mass/volume] in Ser um or PlasmaOrdered By: Russell Gómez on 11-30-2024 Glucose [Mass/Vol] Glucose [Mass/volume ] in Serum or Plasma 70-100 [facility] Comment on above: ADA recommended refe rence rangeRandom Glucose Reference Range is dependent on time and content of last meal. Glucose of more than 200 mg/dL in a nonstressed, ambulatory subject supports the diagnosis of Diabetes Mellitus. Glucose [Mass/Vol] 91 mg/dL Normal 70-100 [facility] Comment on above: ADA recommended refe rence rangeRandom Glucose Reference Range is dependent on time and content of last meal. Glucose of more than 200 mg/dL in a nonstressed, ambulatory subject supports the diagnosis of Diabetes Mellitus. Result Comment: [place] om Glucose Reference Range is dependent on time and content of last meal. Glucose of more than 200 mg/dL in a nonstressed, ambulatory subject supports the diagnosis of Diabetes Mellitus. ADA recommended reference range Performed By: #### L IPID, CHC CBC, EMP PSA, A1C WTH eA, CMP #### [facility] [address] Hematocrit Auto (Bld) [Volum e fraction]Ordered By: Russell Gómez on 11-30-2024 Hematocrit (Bld) [Volume fraction] Hematocrit [Volume Fraction] of Blood by Automated count 38.8-50.0 [facility] Hematocrit [Volume Fraction] of Blood by Automated countOrdered By: Russell Gómez on 11-30-2024 Hematocrit (Bld) [Volume fraction] 43.3 % Normal 38.8-50.0 [facility] Comment on above: Performed By: #### S CAN CBC, LDH, CMP #### [facility] [address] Hemoglobin A1c/Hemoglobin.to edouard in BloodOrdered By: Russell Gómez on 11-30-2024 HbA1c (Bld) [Mass fraction] Hemoglobin A1c percentage 4.3-5.6 [facility] Comment on above: Increased risk for d iabetes: 5.7 - 6.4diabetes: >6.4glycemic control for adults with diabetes: <7.0 HbA1c (Bld) [Mass fraction] 4.9 % Normal 4.3-5.6 [facility] Comment on above: Increased risk for d iabetes: 5.7 - 6.4diabetes: >6.4glycemic control for adults with diabetes: <7.0 Result Comment: Incr eased risk for diabetes: 5.7 - 6.4 diabetes: >6.4 glycemic control for adults with diabetes: <7.0 Performed By: #### S CAN CBC, LDH, CMP #### [facility] [address] Hemoglobin [Mass/volume] in BloodOrdered By: Russell Gómez on 11-30-2024 Hemoglobin (Bld) [Mass/Vol] Hemoglobin [Mass/volume] in Blood 13.0-17.0 [facility] Hemoglobin (Bld) [Mass/Vol] 14.9 g/dL Normal 13.0-17.0 [facility] Comment on above: Performed By: #### S CAN CBC, LDH, CMP #### [facility] [address] Leukocytes [#/volume] correc christophe for nucleated erythrocytes in Blood by Automated counOrdered By: Russell Gómez on 11-30-2024 WBC corrected for nucl RBC Auto (Bld) [#/Vol] Leukocytes [#/volume] corrected for nucleated erythrocytes in Blood by Automated coun High 4.1-10.5 [facility] WBC corrected for nucl RBC Auto (Bld) [#/Vol] 19.5 10*3/uL High 4.1-10.5 [facility] Leukocytes [#/volume] in Blo od by Automated countOrdered By: Russell Gómez on 11-30-2024 WBC (Bld) [#/Vol] 19.5 10*3/uL High 4.1-10.5 [facility] Comment on above: Performed By: #### S CAN CBC, LDH, CMP #### [address] Lipid Panelon 11-30-2024 LDL Cholesterol,Calculated 93 mg/dL Normal 0-100 [facility] Comment on above: Result Comment: LDL ATP III CLASSIFICATION LDL less than 100 mg/dL Optimal LDL 100-129 mg/dL Near or above optimal LDL 130-159 mg/dL Borderline high LDL 160-189 mg/dL High LDL greater than 189 mg/dL Very high Performed By: #### S CAN CBC, LDH, CMP #### [address] Triglyceride w/Reflex 86 mg/dL Normal 0-149 [facility] Comment on above: Result Comment: TRIG ATP III CLASSIFICATION TRIG less than 150 mg/dL Normal TRIG 150-199 mg/dL Borderline high TRIG 200-500 mg/dL High TRIG greater than 500 mg/dL Very high Standard traceable to the Center for Disease Conrtrol and Prevention (CDC) test method. Performed By: #### S CAN CBC, LDH, CMP #### [address] VLDL CHOLESTEROL 17 mg/dL Normal [facility] Comment on above: Performed By: #### S CAN CBC, LDH, CMP #### [address] Lymphocytes Auto (Bld) [#/Vo l]Ordered By: Russell Gómez on 11-30-2024 Lymphocytes (Bld) [#/Vol] Lymphocytes [#/volume] in Blood by Automated count High 1.00-4.8 [facility] Lymphocytes [#/volume] in Bl ood by Automated countOrdered By: Russell Gómez on 11-30-2024 Lymphocytes (Bld) [#/Vol] 14.4 10*3/uL High 1.00-4.8 [facility] Comment on above: Performed By: #### S CAN CBC, LDH, CMP #### [place] [address] [place] Lymphocytes/100 WBC Auto (Bl d)Ordered By: Russell Gómez on 11-30-2024 Lymphocytes/100 WBC (Bld) Lymphocytes/100 leukocytes in Blood by Automated count . [facility] Lymphocytes/100 leukocytes i n Blood by Automated countOrdered By: Russell Gómez on 11-30-2024 Lymphocytes/100 WBC (Bld) 74.0 % Normal . [facility] Comment on above: Performed By: #### S CAN CBC, LDH, CMP #### [facility] [address] MCH Auto (RBC) [Entitic mass ]Ordered By: Russell Gómez on 11-30-2024 MCH (RBC) [Entitic mass] MCH [Entitic mass] by Automated count 27.5-35.2 [facility] MCH [Entitic mass] by Automa christophe countOrdered By: Russell Gómez on 11-30-2024 MCH (RBC) [Entitic mass] 31.8 pg Normal 27.5-35.2 [facility] Comment on above: Performed By: #### S CAN CBC, LDH, CMP #### [facility] [address] MCHC Auto (RBC) [Mass/Vol]Or dered By: Russell Gómez on 11-30-2024 MCHC (RBC) [Mass/Vol] MCHC [Mass/volume] by Automated count 32.5-35.6 [facility] MCHC (RBC) [Mass/Vol] 34.3 g/dL 32.5-35.6 [facility] MCV Auto (RBC) [Entitic vol] Ordered By: Russell Gómez on 11-30-2024 MCV (RBC) [Entitic vol] MCV [Entitic volume] by Automated count 83.5-101 [facility] MCV [Entitic volume] by Auto mated countOrdered By: Russell Gómez on 11-30-2024 MCV (RBC) [Entitic vol] 92.8 fL Normal 83.5-101 [facility] Comment on above: Performed By: #### S CAN CBC, LDH, CMP #### [facility] [address] Monocytes Auto (Bld) [#/Vol] Ordered By: Russell Gómez on 11-30-2024 Monocytes (Bld) [#/Vol] Automated blood monocyte count 0.0-0.8 [facility] Monocytes [#/volume] in Bloo d by Automated countOrdered By: Russell Gómez on 11-30-2024 Monocytes (Bld) [#/Vol] 0.4 10*3/uL Normal 0.0-0.8 [facility] Comment on above: Performed By: #### S CAN CBC, LDH, CMP #### [facility] [address] Monocytes/100 WBC Auto (Bld) Ordered By: Russell Gómez on 11-30-2024 Monocytes/100 WBC (Bld) Automated monocyte % . [facility] Monocytes/100 leukocytes in Blood by Automated countOrdered By: Russell Gómez on 11-30-2024 Monocytes/100 WBC (Bld) 2.3 % Normal . [facility] Comment on above: Performed By: #### S CAN CBC, LDH, CMP #### [facility] [address] Neutrophils Auto (Bld) [#/Vo l]Ordered By: Russell Gómez on 11-30-2024 Neutrophils (Bld) [#/Vol] Neutrophils [#/volume] in Blood by Automated count 1.8-7.7 [facility] Neutrophils [#/volume] in Bl ood by Automated countOrdered By: Russell Gómez on 11-30-2024 Neutrophils (Bld) [#/Vol] 4.4 10*3/uL Normal 1.8-7.7 [facility] Comment on above: Performed By: #### S CAN CBC, LDH, CMP #### [facility] [address] [place] [address] [place] Neutrophils/100 WBC Auto (Bl d)Ordered By: Russell Gómez on 11-30-2024 Neutrophils/100 WBC (Bld) Automated neutrophil % . [facility] Neutrophils/100 leukocytes i n Blood by Automated countOrdered By: Russell Gómez on 04-08-2025 Neutrophils/100 WBC (Bld) 22.4 % Normal . [facility] Comment on above: Performed By: #### S CAN CBC, LDH, CMP #### [facility] [address] No Panel InformationOrdered By: Russell Gómez on 11-30-2024 Estimated GFR (CKD-EPI) > 60.0 mL/Min [facility] Creatinine Clearance (Chem N/A [facility] Nucleated erythrocytes [Pres ence] in Blood by Automated countOrdered By: Russell Gómez on 11-30-2024 Nucleated RBC Auto Ql (Bld) Nucleated erythrocytes [Presence] in Blood by Automated count 0-0.5 [facility] Nucleated RBC Auto Ql (Bld) 0.2 /100{WBC} 0-0.5 [facility] Platelet mean volume Auto (B ld) [Entitic vol]Ordered By: Russell Gómez on 11-30-2024 Platelet mean volume (Bld) [Entitic vol] Platelet mean volume [Entitic volume] in Blood by Automated count 6.6-10.1 [facility] Platelet mean volume [Entiti c volume] in Blood by Automated countOrdered By: Russell Gómez on 11-30-2024 Platelet mean volume (Bld) [Entitic vol] 8.6 fL Normal 6.6-10.1 [facility] Comment on above: Performed By: #### S CAN CBC, LDH, CMP #### [facility] [address] [place] [address] Platelets Auto (Bld) [#/Vol] Ordered By: Russell Gómez on 11-30-2024 Platelets (Bld) [#/Vol] Platelets [#/volume] in Blood by Automated count Low 150-450 [facility] Platelets [#/volume] in Bloo d by Automated countOrdered By: Russell Gómez on 11-30-2024 Platelets (Bld) [#/Vol] 121 10*3/uL Low 150-450 [facility] Comment on above: Performed By: #### S CAN CBC, LDH, CMP #### [facility] [address] [place] [address] [place] Potassium [Moles/volume] in Serum or PlasmaOrdered By: Russell Gómez on 11-30-2024 Potassium [Moles/Vol] Potassium [Moles/v olume] in Serum or Plasma 3.5-5.1 [facility] Potassium [Moles/Vol] 3.8 mmol/L Normal 3.5-5.1 [facility] Comment on above: Performed By: #### L IPID, CHC CBC, EMP PSA, A1C [facility], CMP #### [facility] [address] Prostate specific Ag [Mass/v olume] in Serum or PlasmaOrdered By: Russell Gómez on 11-30-2024 Prostate specific Ag [Mass/Vol] Prostate specific Ag [Mass/volume] in Serum or Plasma 0.000-4.00 0 [facility] Comment on above: Serial tumor marker results determined by assays using different manufacturers or methods may not be comparable.[facility] dog hair clipper and method:[employer] DXI, CHEMILUMINESCENT IMMUNOASSAY. Prostate specific Ag [Mass/Vol] 0.650 ng/mL 0.000-4.00 0 [facility] Comment on above: Serial tumor marker results determined by assays using different manufacturers or methods may not be comparable.[facility] dog hair clipper and method:[employer] DXI, CHEMILUMINESCENT IMMUNOASSAY. Protein [Mass/volume] in Ser um or PlasmaOrdered By: Russell Gómez on 11-30-2024 Protein [Mass/Vol] Protein [Mass/volume ] in Serum or Plasma Low 6.4-8.9 [facility] Protein [Mass/Vol] 6.3 g/dL Low 6.4-8.9 [facility] Comment on above: Performed By: #### L IPID, CHC CBC, EMP PSA, A1C [facility], CMP #### [facility] [address] RBC Auto (Bld) [#/Vol]Ordere d By: Russell Gómez on 11-30-2024 RBC (Bld) [#/Vol] Erythrocytes [#/volu me] in Blood by Automated count 3.90-5.60 [facility] Serum globulin measurement b y calculation (mass/volume)Ordered By: Russell Gómez on 11-30-2024 Globulin (S) [Mass/Vol] 2.0 g/dL Normal [facility] Comment on above: Performed By: #### L IPID, CHC CBC, EMP PSA, A1C [facility], CMP #### [facility] [address] Serum or plasma albumin/glob ulin mass ratioOrdered By: Russell Gómez on 11-30-2024 Albumin/Globulin [Mass ratio] Serum or plasma albumin/globulin mass ratio [facility] Albumin/Globulin [Mass ratio] 2.2 {ratio} Normal [facility] Comment on above: Performed By: #### L IPID, CHC CBC, EMP PSA, A1C [facility], CMP #### [facility] [address] Serum or plasma anion gap de terminationOrdered By: Russell Gómez on 11-30-2024 Anion gap [Moles/Vol] Serum or plasma an ion gap determination 6.0-15.0 [facility] Anion gap [Moles/Vol] 7.7 mmol/L Normal 6.0-15.0 [facility] Comment on above: Performed By: #### L IPID, CHC CBC, EMP PSA, A1C [facility], CMP #### [address] Serum or plasma total choles terol/high density lipoprotein (HDL) cholesterol mass ratOrdered By: Russell Gómez on 11-30-2024 Cholesterol.total/Chol esterol in HDL [Mass ratio] Serum or plasma total cholesterol/high density lipoprotein (HDL) cholesterol mass rat <5.0 [facility] Cholesterol.total/Chol esterol in HDL [Mass ratio] 2.9 {ratio} Normal <5.0 [facility] Comment on above: Result Comment: PERF ORMED BY: [place] [address] PATHOLOGIST [employer]ILER SUSAN FREGOSO M.D. Performed By: #### S CAN CBC, LDH, CMP #### [address] Sodium [Moles/volume] in Ser um or PlasmaOrdered By: Russell Gómez on 11-30-2024 Sodium [Moles/Vol] Sodium [Moles/volume ] in Serum or Plasma 136-145 [facility] Sodium [Moles/Vol] 142 mmol/L Normal 136-145 [facility] Comment on above: Performed By: #### L IPID, CHC CBC, EMP PSA, A1C [facility] eA, CMP #### [facility] [address] Triglyceride [Mass/volume] i n Serum or PlasmaOrdered By: Russell Gómez on 11-30-2024 Triglyceride [Mass/Vol] Triglyceride [Mass/volume] in Serum or Plasma 0-149 [facility] Comment on above: TRIG ATP III CLASSIF ICATIONTRIG less than 150 mg/dL NormalTRIG 150-199 mg/dL Borderline highTRIG 200-500 mg/dL High TRIG greater than 500 mg/dL Very highStandard traceable to the Center for Disease Conrtrol and Prevention (CDC) test method. Triglyceride [Mass/Vol] 86 mg/dL 0-149 [facility] Comment on above: TRIG ATP III CLASSIF ICATIONTRIG less than 150 mg/dL NormalTRIG 150-199 mg/dL Borderline highTRIG 200-500 mg/dL High TRIG greater than 500 mg/dL Very highStandard traceable to the Center for Disease Conrtrol and Prevention (CDC) test method. Urea nitrogen [Mass/volume] in Serum or PlasmaOrdered By: Russell Gómez on 11-30-2024 Urea nitrogen [Mass/Vol] Urea nitrogen [Mass/volume] in Serum or Plasma 7-25 [facility] Urea nitrogen [Mass/Vol] 15 mg/dL Normal 7-25 [facility] Comment on above: Performed By: #### L IPID, CHC CBC, EMP PSA, A1C [facility] Mari, CMP #### [facility] [address] [place] [address] [place] WBC Auto (Bld) [#/Vol]Ordere d By: Russell Gómez on 11-30-2024 WBC (Bld) [#/Vol] Leukocytes [#/volume ] in Blood by Automated count High 4.1-10.5 [facility] Alanine aminotransferase [En zymatic activity/volume] in Serum or PlasmaOrdered By: Jose Solares on 11-12-2024 ALT [Catalytic activity/Vol] Alanine aminotransferase [Enzymatic activity/volume] in Serum or Plasma 7-52 [facility] Albumin [Mass/volume] in Ser um or Plasma by Bromocresol green (BCG) dye binding methoOrdered By: Jose Solares on 11-12-2024 Albumin BCG dye [Mass/Vol] Albumin [Mass/volume] in Serum or Plasma by Bromocresol green (BCG) dye binding metho 3.5-5.7 [facility] Alkaline phosphatase [Enzyma tic activity/volume] in Serum or PlasmaOrdered By: Jose Solares on 11-12-2024 ALP [Catalytic activity/Vol] Alkaline phosphatase [Enzymatic activity/volume] in Serum or Plasma 34-104 [facility] Aspartate aminotransferase [ Enzymatic activity/volume] in Serum or PlasmaOrdered By: Jose Solares on 11-12-2024 AST [Catalytic activity/Vol] Aspartate aminotransferase [Enzymatic activity/volume] in Serum or Plasma 13-39 [facility] Basophils Auto (Bld) [#/Vol] Ordered By: Jose Solares on 11-12-2024 Basophils (Bld) [#/Vol] Automated basophil count 0.0-0.2 [facility] Basophils/100 WBC Auto (Bld) Ordered By: Jose Solares on 11-12-2024 Basophils/100 WBC (Bld) Automated basophil % . [facility] Bilirubin.total [Mass/volume ] in Serum or PlasmaOrdered By: Jose Solares on 11-12-2024 Bilirubin [Mass/Vol] Bilirubin.total [Mass/volume] in Serum or Plasma High 0.3-1.0 [facility] Calcium [Mass/volume] in Ser um or PlasmaOrdered By: Jose Solares on 11-12-2024 Calcium [Mass/Vol] Calcium [Mass/volume ] in Serum or Plasma 8.6-10.3 [facility] Carbon dioxide, total [Moles /volume] in Serum or PlasmaOrdered By: Jose Solares on 11-12-2024 CO2 [Moles/Vol] Carbon dioxide, tota l [Moles/volume] in Serum or Plasma High 21.0-31.0 [facility] Chloride [Moles/volume] in S hesham or PlasmaOrdered By: Jose Solares on 11-12-2024 Chloride [Moles/Vol] Chloride [Moles/vol ume] in Serum or Plasma 98-107 [facility] Comprehensive Metabolic Pane jalil 11-12-2024 Albumin [Mass/Vol] 4.4 g/dL Normal 3.5-5.7 [facility] Comment on above: Performed By: #### S CAN CBC, LDH, CMP #### [facility] [address] Albumin/Globulin [Mass ratio] 2.3 {ratio} Normal [facility] Comment on above: Performed By: #### S CAN CBC, LDH, CMP #### [address] ALP [Catalytic activity/Vol] 89 U/L Normal 34-104 [facility] Comment on above: Performed By: #### S CAN CBC, LDH, CMP #### [address] ALT [Catalytic activity/Vol] 28 U/L Normal 7-52 [facility] Comment on above: Performed By: #### S CAN CBC, LDH, CMP #### [address] Anion gap [Moles/Vol] 8.2 mmol/L Normal 6.0-15.0 [facility] Comment on above: Performed By: #### S CAN CBC, LDH, CMP #### [address] AST [Catalytic activity/Vol] 27 U/L Normal 13-39 [facility] Comment on above: Performed By: #### S CAN CBC, LDH, CMP #### [address] Bilirubin [Mass/Vol] 1.1 mg/dL High 0.3-1.0 [facility] Comment on above: Performed By: #### S CAN CBC, LDH, CMP #### [address] Calcium [Mass/Vol] 8.8 mg/dL Normal 8.6-10.3 [facility] Comment on above: Performed By: #### S CAN CBC, LDH, CMP #### [address] Chloride [Moles/Vol] 106 mmol/L Normal 98-107 [facility] Comment on above: Performed By: #### S CAN CBC, LDH, CMP #### [address] CO2 [Moles/Vol] 31.9 mmol/L High 21.0-31.0 [facility] Comment on above: Performed By: #### S CAN CBC, LDH, CMP #### [address] Creatinine [Mass/Vol] 0.83 mg/dL Normal 0.70-1.30 [facility] Comment on above: Performed By: #### S CAN CBC, LDH, CMP #### [place] [address] [place] Creatinine Clr Calc Pharmacy 97.39 Normal [facility] Comment on above: Performed By: #### S CAN CBC, LDH, CMP #### [place] [address] [place] GFR/1.73 sq M.predicted MDRD (S/P/Bld) [Vol rate/Area] mL/min/{1.73_m2} Normal [facility] Comment on above: Performed By: #### S CAN CBC, LDH, CMP #### [place] [address] [place] Globulin (S) [Mass/Vol] 1.9 g/dL Normal [facility] Comment on above: Performed By: #### S CAN CBC, LDH, CMP #### [place] [address] [place] Glucose [Mass/Vol] 93 mg/dL Normal 70-100 [facility] Comment on above: Result Comment: [facility] Glucose Reference Range is dependent on time and content of last meal. Glucose of more than 200 mg/dL in a nonstressed, ambulatory subject supports the diagnosis of Diabetes Mellitus. ADA recommended reference range Performed By: #### S CAN CBC, LDH, CMP #### [facility] [address] Potassium [Moles/Vol] 4.1 mmol/L Normal 3.5-5.1 [facility] Comment on above: Performed By: #### S CAN CBC, LDH, CMP #### [facility] [address] Protein [Mass/Vol] 6.3 g/dL Low 6.4-8.9 [facility] Comment on above: Performed By: #### S CAN CBC, LDH, CMP #### [facility] [address] Sodium [Moles/Vol] 142 mmol/L Normal 136-145 [facility] Comment on above: Performed By: #### S CAN CBC, LDH, CMP #### [facility] [address] Urea nitrogen [Mass/Vol] 17 mg/dL Normal 7-25 [facility] Comment on above: Performed By: #### S CAN CBC, LDH, CMP #### [facility] [address] Creatinine [Mass/volume] in Serum or PlasmaOrdered By: Jose Solares on 11-12-2024 Creatinine [Mass/Vol] Creatinine [Mass/v olume] in Serum or Plasma 0.70-1.30 [facility] Eosinophils Auto (Bld) [#/Vo l]Ordered By: Jose Solares on 11-12-2024 Eosinophils (Bld) [#/Vol] Automated eosinophil count 0.0-0.45 [facility] Eosinophils/100 WBC Auto (Bl d)Ordered By: Jose Solares on 11-12-2024 Eosinophils/100 WBC (Bld) Automated eosinophil % . [facility] Erythrocyte distribution wid th Auto (RBC) [Ratio]Ordered By: Jose Solares on 11-12-2024 Erythrocyte distribution width (RBC) [Ratio] Erythrocyte distribution width [Ratio] by Automated count 12.0-14.8 [facility] Erythrocyte morphology findi ng [Identifier] in BloodOrdered By: Jose Elisemarilyn on 11-12-2024 RBC morphology finding Nom (Bld) RBC morphology Normal [facility] Globulin Calc (S) [Mass/Vol] Ordered By: Jose Elisemarilyn on 11-12-2024 Globulin (S) [Mass/Vol] Serum globulin measurement by calculation (mass/volume) [facility] Glucose [Mass/volume] in Ser um or PlasmaOrdered By: Jose Suajtha on 11-12-2024 Glucose [Mass/Vol] Glucose [Mass/volume ] in Serum or Plasma 70-100 [facility] Comment on above: ADA recommended refe rence rangeRandom Glucose Reference Range is dependent on time and content of last meal. Glucose of more than 200 mg/dL in a nonstressed, ambulatory subject supports the diagnosis of Diabetes Mellitus. Hematocrit Auto (Bld) [Volum e fraction]Ordered By: Jose Sujatha on 11-12-2024 Hematocrit (Bld) [Volume fraction] Hematocrit [Volume Fraction] of Blood by Automated count 38.8-50.0 [facility] Hemoglobin [Mass/volume] in BloodOrdered By: Jose Elisemarilyn on 11-12-2024 Hemoglobin (Bld) [Mass/Vol] Hemoglobin [Mass/volume] in Blood 13.0-17.0 [facility] LDH Lactate Dehydrogenaseon 11-12-2024 LDH Lactate Dehydrogenase 242 U/L Normal 140-271 [facility] Comment on above: Result Comment: PERF ORMED BY: [address] [place] [address] PATHOLOGIST [employer]ILER SUSAN FREGOSO M.D. Performed By: #### S CAN CBC, LDH, CMP #### [address] Lactate dehydrogenase [Enzym atic activity/volume] in Serum or Plasma by Lactate to pyOrdered By: Jose Sujatha on 11-12-2024 LDH Lactate to pyruvate reaction [Catalytic activity/Vol] Lactate dehydrogenase [Enzymatic activity/volume] in Serum or Plasma by Lactate to py 140-271 [facility] Leukocytes [#/volume] correc christophe for nucleated erythrocytes in Blood by Automated counOrdered By: Jose Solares on 11-12-2024 WBC corrected for nucl RBC Auto (Bld) [#/Vol] Leukocytes [#/volume] corrected for nucleated erythrocytes in Blood by Automated coun High 4.1-10.5 [facility] Lymphocytes Auto (Bld) [#/Vo l]Ordered By: Jose Solares on 11-12-2024 Lymphocytes (Bld) [#/Vol] Lymphocytes [#/volume] in Blood by Automated count High 1.00-4.8 [facility] Lymphocytes/100 WBC Auto (Bl d)Ordered By: Jose Solares on 11-12-2024 Lymphocytes/100 WBC (Bld) Lymphocytes/100 leukocytes in Blood by Automated count . [facility] MCH Auto (RBC) [Entitic mass ]Ordered By: Jose Solares on 11-12-2024 MCH (RBC) [Entitic mass] MCH [Entitic mass] by Automated count 27.5-35.2 [facility] MCHC Auto (RBC) [Mass/Vol]Or dered By: Jose Solares on 11-12-2024 MCHC (RBC) [Mass/Vol] MCHC [Mass/volume] by Automated count 32.5-35.6 [facility] MCV Auto (RBC) [Entitic vol] Ordered By: Jose Soalres on 11-12-2024 MCV (RBC) [Entitic vol] MCV [Entitic volume] by Automated count 83.5-101 [facility] Monocytes Auto (Bld) [#/Vol] Ordered By: Jose Solares on 11-12-2024 Monocytes (Bld) [#/Vol] Automated blood monocyte count 0.0-0.8 [facility] Monocytes/100 WBC Auto (Bld) Ordered By: Jose Solares on 11-12-2024 Monocytes/100 WBC (Bld) Automated monocyte % . [facility] Neutrophils Auto (Bld) [#/Vo l]Ordered By: Jose Solares on 11-12-2024 Neutrophils (Bld) [#/Vol] Neutrophils [#/volume] in Blood by Automated count 1.8-7.7 [facility] Neutrophils/100 WBC Auto (Bl d)Ordered By: Jose Solares on 11-12-2024 Neutrophils/100 WBC (Bld) Automated neutrophil % . [facility] No Panel InformationOrdered By: Jose Solares on 11-12-2024 Estimated GFR (CKD-EPI) > 60.0 mL/Min [facility] Creatinine Clearance (Chem 97.39 [facility] Nucleated erythrocytes [Pres ence] in Blood by Automated countOrdered By: Jose Solares on 11-12-2024 Nucleated RBC Auto Ql (Bld) Nucleated erythrocytes [Presence] in Blood by Automated count 0-0.5 [facility] Platelet adequacy [Presence] in Blood by Light microscopyOrdered By: Jose Solares on 11-12-2024 Platelets LM Ql (Bld) Platelet adequacy [Presence] in Blood by Light microscopy Normal [facility] Platelet mean volume Auto (B ld) [Entitic vol]Ordered By: Jose Solares on 11-12-2024 Platelet mean volume (Bld) [Entitic vol] Platelet mean volume [Entitic volume] in Blood by Automated count 6.6-10.1 [facility] Platelet morphology finding [Identifier] in BloodOrdered By: Jose Solares on 11-12-2024 Platelet morphology finding Nom (Bld) Platelet morphology finding [Identifier] in Blood Normal [facility] Platelets Auto (Bld) [#/Vol] Ordered By: Jose Solares on 11-12-2024 Platelets (Bld) [#/Vol] Platelets [#/volume] in Blood by Automated count Low 150-450 [facility] Potassium [Moles/volume] in Serum or PlasmaOrdered By: Jose Solares on 11-12-2024 Potassium [Moles/Vol] Potassium [Moles/v olume] in Serum or Plasma 3.5-5.1 [facility] Protein [Mass/volume] in Ser um or PlasmaOrdered By: Jose Solares on 11-12-2024 Protein [Mass/Vol] Protein [Mass/volume ] in Serum or Plasma Low 6.4-8.9 [facility] RBC Auto (Bld) [#/Vol]Ordere d By: Jose Solares on 11-12-2024 RBC (Bld) [#/Vol] Erythrocytes [#/volu me] in Blood by Automated count 3.90-5.60 [facility] Scan and CBCon 11-12-2024 Basophils (Bld) [#/Vol] 0.1 10*3/uL Normal 0.0-0.2 [facility] Comment on above: Performed By: #### S CAN CBC, LDH, CMP #### [facility] [address] Basophils/100 WBC (Bld) 0.4 % Normal . [facility] Comment on above: Performed By: #### S CAN CBC, LDH, CMP #### [facility] [address] [place] [address] [place] Eosinophils (Bld) [#/Vol] 0.2 10*3/uL Normal 0.0-0.45 [facility] Comment on above: Performed By: #### S CAN CBC, LDH, CMP #### [facility] [address] [place] [address] [place] Eosinophils/100 WBC (Bld) 1.0 % Normal . [facility] Comment on above: Performed By: #### S CAN CBC, LDH, CMP #### [facility] [address] Erythrocyte distribution width (RBC) [Ratio] 12.9 % Normal 12.0-14.8 [facility] Comment on above: Performed By: #### S CAN CBC, LDH, CMP #### [address] Hematocrit (Bld) [Volume fraction] 41.8 % Normal 38.8-50.0 [facility] Comment on above: Performed By: #### S CAN CBC, LDH, CMP #### [place] [address] [place] Hemoglobin (Bld) [Mass/Vol] 14.7 g/dL Normal 13.0-17.0 [facility] Comment on above: Performed By: #### S CAN CBC, LDH, CMP #### [facility] [address] [place] [address] [place] Lymphocytes (Bld) [#/Vol] 13.2 10*3/uL High 1.00-4.8 [facility] Comment on above: Performed By: #### S CAN CBC, LDH, CMP #### [address] Lymphocytes/100 WBC (Bld) 75.9 % Normal . [facility] Comment on above: Performed By: #### S CAN CBC, LDH, CMP #### [address] MCH (RBC) [Entitic mass] 32.2 pg Normal 27.5-35.2 [facility] Comment on above: Performed By: #### S CAN CBC, LDH, CMP #### [address] MCV (RBC) [Entitic vol] 91.7 fL Normal 83.5-101 [facility] Comment on above: Performed By: #### S CAN CBC, LDH, CMP #### [address] Mean Corpuscular HGB Conc 35.1 g/dL Normal 32.5-35.6 [facility] Comment on above: Performed By: #### S CAN CBC, LDH, CMP #### [address] Monocytes (Bld) [#/Vol] 0.4 10*3/uL Normal 0.0-0.8 [facility] Comment on above: Performed By: #### S CAN CBC, LDH, CMP #### [address] Monocytes/100 WBC (Bld) 2.1 % Normal . [facility] Comment on above: Performed By: #### S CAN CBC, LDH, CMP #### [address] Neutrophils (Bld) [#/Vol] 3.6 10*3/uL Normal 1.8-7.7 [facility] Comment on above: Performed By: #### S CAN CBC, LDH, CMP #### [place] [address] [place] Neutrophils/100 WBC (Bld) 20.6 % Normal . [facility] Comment on above: Performed By: #### S CAN CBC, LDH, CMP #### [address] NRBC% 0.2 /100{WBC} Normal 0-0.5 [facility] Comment on above: Performed By: #### S CAN CBC, LDH, CMP #### [address] Platelet Estimate Decreased Normal Normal [facility] Comment on above: Performed By: #### S CAN CBC, LDH, CMP #### [address] Platelet mean volume (Bld) [Entitic vol] 7.9 fL Normal 6.6-10.1 [facility] Comment on above: Performed By: #### S CAN CBC, LDH, CMP #### [address] Platelet Morphology Normal Normal Normal [facility] Comment on above: Result Comment: PERF ORMED BY: [place] [address] PATHOLOGIST LYE BOILER SUSAN FREGOSO M.D. Performed By: #### S CAN CBC, LDH, CMP #### [address] Platelets (Bld) [#/Vol] 136 10*3/uL Low 150-450 [facility] Comment on above: Performed By: #### S CAN CBC, LDH, CMP #### [address] RBC (Bld) [#/Vol] 4.56 10*6/uL Normal 3.90-5.60 [facility] Comment on above: Performed By: #### S CAN CBC, LDH, CMP #### [address] RBC morphology finding Nom (Bld) Normal Normal Normal [facility] Comment on above: Performed By: #### S CAN CBC, LDH, CMP #### [facility] [address] [place] [address] [place] WBC (Bld) [#/Vol] 17.4 10*3/uL High 4.1-10.5 [facility] Comment on above: Performed By: #### S CAN CBC, LDH, CMP #### [facility] [address] Serum or plasma albumin/glob ulin mass ratioOrdered By: Jose Solares on 11-12-2024 Albumin/Globulin [Mass ratio] Serum or plasma albumin/globulin mass ratio [facility] Serum or plasma anion gap de terminationOrdered By: Jose Solares on 11-12-2024 Anion gap [Moles/Vol] Serum or plasma an ion gap determination 6.0-15.0 [facility] Sodium [Moles/volume] in Ser um or PlasmaOrdered By: Jose Solares on 11-12-2024 Sodium [Moles/Vol] Sodium [Moles/volume ] in Serum or Plasma 136-145 [facility] Urea nitrogen [Mass/volume] in Serum or PlasmaOrdered By: Jose Solares on 11-12-2024 Urea nitrogen [Mass/Vol] Urea nitrogen [Mass/volume] in Serum or Plasma 7-25 [facility] WBC Auto (Bld) [#/Vol]Ordere d By: Jose Solares on 11-12-2024 WBC (Bld) [#/Vol] Leukocytes [#/volume ] in Blood by Automated count High 4.1-10.5 [facility] XR Hand - left 3 [facility] Result: Three views of the left hand(s), PA/lateral/oblique, taken today and saved to the permanent medical record. Fracture distal phalanx middle finger well healed with advanced DIP joint arthritis. [facility] XR Knee - right 3 [facility] Result: Three views, bilateral PA weight-bearing, sunrise, lateral of the right knee(s) taken today and saved to the permanent medical record are reviewed. Mild medial compartment joint space narrowing. No acute osseous abnormalities. [facility] No Panel Informationon 09-30 Aracely De León, ARR T 10/02/2024 9:51 PM L Inj/Asp: R knee on 09/30/2024 4:29 PM Indications: pain Details: 25 G needle, lateral approach Medications: 1.5 mg betamethasone acetate-betamethasone sodium phosphate 6 (3-3) MG/ML Consent was given by the patient. [facility] XR Hand - left 3 [facility] Study observation (narrative) [facility] XR Knee - right 3 [facility] Study observation (narrative) [facility] CNOVon 09-21-2024 CNOV Office Visit (CARDAV ) -- DARIUS VALERA ([id number]) 1960 M Date Time Provider Department 09/21/24 4:30 PM TONY ARMSTRONG During your visit today, we recorded the following information about you: Blood pressure Weight Height 142/82 93 kg 1.829 m Tony Armstrong PA-C 09/21/2024 5:03 PM Signed [facility] [place] Sissy Zepeda Department of Cardiovascular Medicine SECTION [...] rare (<1.0%). Isolated VEs were occasional (1.4%, [address]15[address]), VE Couplets were rare (<1.0%, 56), and [...] months CONTACT INFORMATION: Tony Armstrong PA-C Cardiology [id number] [facility] [address] Dept: [phone] Dept Tony Armstrong PA-C 09/21/2024 4:57 PM Signed Please schedule appt with Dr. Tuttle in 6 months Referring Provider: ITA TUTTLE [[id number]] Allergies As of Date: 09/21/2024 (No Known Allergies) Date Reviewed: 09/21/2024 Reviewed by: Donte Iraheta II, MAX - Fully Assessed Reason for Visit: Follow Up [171] Primary V (more content not included)... Normal [facility] MR HAND LEFT WO IV CONTRASTo [...] (Bld)on 07-29-2024 Basophils (Bld) [#/Vol] 0.1 10*3/uL [facility] Basophils/100 WBC (Bld) 0 % Not Estab. [facility] Eosinophils (Bld) [#/Vol] 0.2 10*3/uL [facility] Eosinophils/100 WBC (Bld) 1 % Not Estab. [facility] Erythrocyte distribution width (RBC) [Ratio] 12.7 % 11.6 - 15.4 % [facility] Hematocrit (Bld) [Volume fraction] 44.5 % 37.5 - 51.0 % [facility] Hemoglobin (Bld) [Mass/Vol] 15.1 g/dL 13.0 - 17.7 g/dL [facility] Immature granulocytes (Bld) [#/Vol] 0 10*3/uL [facility] Immature granulocytes/100 WBC (Bld) 0 % Not Estab. [facility] Lymphocytes (Bld) [#/Vol] 12.7 10*3/uL High [facility] Lymphocytes/100 WBC (Bld) 70 % Not Estab. [facility] MCH (RBC) [Entitic mass] 31.1 pg 26.6 - 33.0 pg [facility] MCHC (RBC) [Mass/Vol] 33.9 g/dL 31.5 - 35.7 g/dL [facility] MCV (RBC) [Entitic vol] 92 fL 79 - 97 fL [facility] Monocytes (Bld) [#/Vol] 0.6 10*3/uL [facility] Monocytes/100 WBC (Bld) 4 % Not Estab. [facility] Neutrophils (Bld) [#/Vol] 4.6 10*3/uL [facility] Neutrophils/100 WBC (Bld) 25 % Not Estab. [facility] Platelets (Bld) [#/Vol] 119 10*3/uL Low [facility] RBC (Bld) [#/Vol] 4.85 [facility] WBC (Bld[facility] [#/Vol] 18.2 10*3/uL High [facility] Comprehensive metabolic pane jalil 07-29-2024 Albumin [Mass/Vol] 4.5 g/dL 3.9 - 4.9 g/dL [facility] ALP [Catalytic activity/Vol] 102 U/L [facility] ALT [Catalytic activity/Vol] 33 U/L [facility] AST [Catalytic activity/Vol] 33 U/L [facility] Bilirubin [Mass/Vol] 0.6 mg/dL 0.0 - 1 .2 mg/dL [facility] Calcium [Mass/Vol] 9.3 mg/dL 8.6 - 10. 2 mg/dL [facility] Chloride [Moles/Vol] 101 mmol/L 96 - 10 6 mmol/L [facility] CO2 [Moles/Vol] 27 mmol/L 20 - 29 mmol/L [facility] Creatinine [Mass/Vol] 0.96 mg/dL 0.76 - 1.27 mg/dL [facility] GFR/1.73 sq M.predicted among non-blacks MDRD (S/P/Bld) [Vol rate/Area] 88 mL/min/{1.73_m2} 59 - PINF mL/min/1.7 3 [facility] Globulin (S) [Mass/Vol] 1.9 g/dL 1.5 - 4.5 g/dL [facility] Glucose [Mass/Vol] 100 mg/dL High 70 - 99 mg/dL [facility] Potassium [Moles/Vol] 4 mmol/L 3.5 - 5.2 mmol/L [facility] Protein [Mass/Vol] 6.4 g/dL 6.0 - 8.5 g/dL [facility] Sodium [Moles/Vol] 139 mmol/L 134 - 144 mmol/L [facility] Urea nitrogen [Mass/Vol] 20 mg/dL 8 - 27 mg/dL [facility] Urea nitrogen/Creatinine [Mass ratio] 21 mg/mg 10 - 24 [facility] Lactate dehydrogenaseon LDH Lactate to pyruvate reaction [Catalytic activity/Vol] 261 High [facility] No Panel Informationon 07-29 Interpretation and review of laboratory results Abnormal [facility] Performed at: 01 - [address] [id number] Medical Research Tech: Chad Mccall PhD, Phone: [phone] [facility] Specimen Status Reporton Clindamycin Disk diffusion (KB) [Susc] Comment [facility] Comment on above: [place] Lock CMP14 D efault [place] Lock CMP14 Default A hand-written panel/profile was received from your office. In accordance with the [facility] Ambiguous Test Code Policy dated February 2003, we have completed your order by using the closest currently or formerly recognized AMA panel. We have assigned Comprehensive Metabolic Panel (14), Test Code #324404 to this request. If this is not the testing you wished to receive on this specimen, please contact the [facility] Client Inquiry/Technical Services Department to clarify the [...] 3rd digiton XR finger LT 3rd digit [facility] [place] [address] XRay Report Signed Patient: Darius Valera MR#: [id number] 10 : 1960 Acct:[id number] Age/Sex: 63 / M ADM Date: 07/24/24 Loc: [facility] Room: Type: [facility] Attending Dr: Hannah Queen APRN Copies to: [...] Donte Quevedo M.D.07/24/2024 11:26 AM Dictation Location: [place] [address] Transcribed By: WADE 07/24/24 112 Dictated By: Donte Quevedo II, MD 07/24/241123 Signed By: 07/24/24 1126 Normal [facility] VITAMIN D 25 HYDROXY,TOT+D2+ D3on 05-03-2024 LAB REINA VITAMIN D 25 OH 53 ng/mL . [facility] Comment on above: Reference Range: All Ages: Target levels 30 - 100 VITAMIN D-2 <1.0 . [facility] Comment on above: This test was develo ped and its performance characteristics determined by [facility]. It has not been cleared or approved by the Food and Drug Administration. VITAMIN D-3 52 ng/mL . [facility] Comment on above: This test was develo ped and its performance characteristics determined by [facility]. It has not been cleared or approved by the Food and Drug Administration. Performed at: [facility] [address] [place] [id number] Medical Research Tech: Johnnie Jansen MD, Phone: [phone] [facility] Ferritin [Mass/volume] in Se rum or PlasmaOrdered By: Jose Solares on 04-23-2024 Ferritin [Mass/Vol] Ferritin [Mass/volum e] in Serum or Plasma 23.9-336.2 [facility] Ferritin [Mass/Vol] 63.9 ng/mL 23.9-336.2 [facility] Folate [Mass/volume] in Seru m or PlasmaOrdered By: Jose Solares on 04-23-2024 Folate [Mass/Vol] Folate [Mass/volume] in Serum or Plasma >5.9 [facility] Comment on above: Folate reference ran ge: >5.9 ng/mlThe WHO technical consultation on folate and vitamin [id number] has determined that folate concentrations lessthan 4 ng/ml are considered deficient. Folate [Mass/Vol] 16.9 ng/mL >5.9 [facility] Comment on above: Folate reference ran ge: >5.9 ng/mlThe WHO technical consultation on folate and vitamin [id number] has determined that folate concentrations lessthan 4 ng/ml are considered deficient. Iron [Mass/volume] in Serum or PlasmaOrdered By: Jose Solares on 04-23-2024 Iron [Mass/Vol] Iron [Mass/volume] i n Serum or Plasma 50 [facility] Iron [Mass/Vol] 83 ug/dL 50 [facility] Serum or plasma 25-hydroxyca lciferol measurement (mass/volume)Ordered By: Jose Solares on 04-23-2024 25-hydroxyvitamin D2 [Mass/Vol] Serum or plasma 25-hydroxycalciferol measurement (mass/volume) . [facility] Comment on above: This test was develo ped and its performance characteristicsdetermined by [facility]. It has not been cleared or approvedby the Food and Drug Administration. 25-hydroxyvitamin D2 [Mass/Vol] <1.0 ng/mL . [facility] Comment on above: This test was develo ped and its performance characteristicsdetermined by [facility]. It has not been cleared or approvedby the Food and Drug Administration. Serum or plasma 25-hydroxyvi tamin D measurement (mass/volume)Ordered By: Jose Solares on 04-23-2024 25-hydroxyvitamin D [Mass/Vol] Serum or plasma 25-hydroxyvitamin D measurement (mass/volume) . [facility] Comment on above: Reference Range:All Ages: Target levels 30 - 100 25-hydroxyvitamin D [Mass/Vol] 53 ng/mL . [facility] Comment on above: Reference Range:All Ages: Target levels 30 - 100 Serum or plasma calcidiol me asurement (mass/volume)Ordered By: Jose Solares on 04-23-2024 25-hydroxyvitamin D3 [Mass/Vol] Serum or plasma calcidiol measurement (mass/volume) . [facility] Comment on above: This test was develo ped and its performance characteristicsdetermined by [facility]. It has not been cleared or approvedby the Food and Drug Administration.Performed at: [facility] [id number] [place] [id number] Director: Johnnie Jansen MD, Phone: [phone] 25-hydroxyvitamin D3 [Mass/Vol] 52 ng/mL . [facility] Comment on above: This test was develo ped and its performance characteristicsdetermined by [facility]. It has not been cleared or approvedby the Food and Drug Administration.Performed at: [facility] [id number] [place] [id number] Director: Johnnie Jansen MD, Phone: [phone] Serum or plasma iron binding capacity measurement (mass/volume)Ordered By: Jose Solares on 04-23-2024 Iron binding capacity [Mass/Vol] Iron binding capacity [Mass/volume] in Serum or Plasma 255-450 [facility] Iron binding capacity [Mass/Vol] 304 ug/dL 255-450 [facility] Serum or plasma iron saturat ion measurement (mass fraction)Ordered By: Jose Solares on 04-23-2024 Iron saturation [Mass fraction] Iron saturation [Mass Fraction] in Serum or Plasma 20-50 [facility] Iron saturation [Mass fraction] 27.3 % 20-50 [facility] Transferrin [Mass/volume] in Serum or PlasmaOrdered By: Jose Solares on 04-23-2024 Transferrin [Mass/Vol] Transferrin [Mass /volume] in Serum or Plasma 203-362 [facility] Transferrin [Mass/Vol] 217 mg/dL -362 [facility] Vitamin B12 ser/plasOrdered By: Jose Solares on 04-23-2024 Cobalamin (Vitamin B12) [Mass/Vol] Vitamin B12 ser/plas 180-4 [facility] Cobalamin (Vitamin B12) [Mass/Vol] 554 pg/mL [facility] Alanine aminotransferase [En zymatic activity/volume] in Serum or PlasmaOrdered By: Christian Carlos on 04-20-2024 ALT [Catalytic activity/Vol] 30 U/L 7-52 [facility] Albumin [Mass/volume] in Ser um or Plasma by Bromocresol green (BCG) dye binding methoOrdered By: Christian Carlos on 04-20-2024 Albumin BCG dye [Mass/Vol] 4.1 g/dL 3.5-5.7 [facility] Alkaline phosphatase [Enzyma tic activity/volume] in Serum or PlasmaOrdered By: Christian Carlos on 04-20-2024 ALP [Catalytic activity/Vol] 79 U/L 34-104 [facility] Anisocytosis LM Ql (Bld)Orde red By: Christian Carlos on 04-20-2024 Anisocytosis Ql (Bld) Slight [facility] Anisocytosis Ql (Bld) Anisocytosis [Pres ence] in Blood by Light microscopy [facility] Aspartate aminotransferase [ Enzymatic activity/volume] in Serum or PlasmaOrdered By: Christian Carlos on 04-20-2024 AST [Catalytic activity/Vol] 29 U/L 13-39 [facility] Basophils Auto (Bld) [#/Vol] Ordered By: Christian Carlos on 04-20-2024 Basophils (Bld) [#/Vol] 0.0 10*3/uL 0.0-0.2 [facility] Basophils/100 WBC Auto (Bld) Ordered By: Christian Carlos on 04-20-2024 Basophils/100 WBC (Bld) 0.3 % . [facility] Bilirubin.total [Mass/volume ] in Serum or PlasmaOrdered By: Christian Carlos on 04-20-2024 Bilirubin [Mass/Vol] 1.0 mg/dL 0.3-1.0 [facility] Calcium [Mass/volume] in Ser um or PlasmaOrdered By: Christian Carlos on 04-20-2024 Calcium [Mass/Vol] 8.8 mg/dL 8.6-10.3 [facility] Carbon dioxide, total [Moles /volume] in Serum or PlasmaOrdered By: Christian Carlos on 04-20-2024 CO2 [Moles/Vol] 31.5 mmol/L High 21.0-31.0 [facility] Chloride [Moles/volume] in S hesham or PlasmaOrdered By: Christian Carlos on 04-20-2024 Chloride [Moles/Vol] 105 mmol/L 98-107 [facility] Comprehensive metabolic pane jalil 04-20-2024 Albumin [Mass/Vol] 4.1 g/dL 3.5 - 5.7 g/dL [facility] Albumin/Globulin [Mass ratio] 2.2 {ratio} [facility] ALP [Catalytic activity/Vol] 79 U/L 34 - 104 U/L [facility] ALT [Catalytic activity/Vol] 30 U/L 7 - 52 U/L [facility] Anion gap [Moles/Vol] 9.3 mmol/L 6.0 - 15.0 [facility] AST [Catalytic activity/Vol] 29 U/L 13 - 39 U/L [facility] Bilirubin [Mass/Vol] 1.0 mg/dL 0.3 - 1 .0 mg/dL [facility] Calcium [Mass/Vol] 8.8 mg/dL 8.6 - 10. 3 mg/dL [facility] Chloride [Moles/Vol] 105 mmol/L 98 - 10 7 mmol/L [facility] CO2 [Moles/Vol] 31.5 mmol/L High 21.0 - 31.0 mmol/L [facility] Creatinine (U) [Mass/Vol] 0.90 mg/dL 0.70 - 1.30 mg/dL [facility] CREATININE CLR CALC PHARMACY 91.01 [facility] GFR/1.73 sq M.predicted MDRD (S/P/Bld) [Vol rate/Area] mL/min/{1.73_m2} [facility] Globulin (S) [Mass/Vol] 1.9 g/dL [facility] Glucose [Mass/Vol] 95 mg/dL 70 - 100 mg/dL [facility] Comment on above: Random Glucose Refer ence Range is dependent on time and content of last meal. Glucose of more than 200 mg/dL in a nonstressed, ambulatory subject supports the diagnosis of Diabetes Mellitus. ADA recommended reference range Interpretation and review of laboratory results Abnormal [facility] Potassium [Moles/Vol] 3.8 mmol/L 3.5 - 5.1 mmol/L [facility] Protein [Mass/Vol] 6.0 g/dL Low 6.4 - 8.9 g/dL [facility] Sodium [Moles/Vol] 142 mmol/L 136 - 145 mmol/L [facility] Urea nitrogen [Mass/Vol] 20 mg/dL 7 - 25 mg/dL [facility] Creatinine [Mass/volume] in Serum or PlasmaOrdered By: Christian Carlos on 04-20-2024 Creatinine [Mass/Vol] 0.90 mg/dL 0.70-1.30 [facility] Eosinophils Auto (Bld) [#/Vo l]Ordered By: Christian Carlos on 04-20-2024 Eosinophils (Bld) [#/Vol] 0.2 10*3/uL 0.0-0.45 [facility] Eosinophils/100 WBC Auto (Bl d)Ordered By: Christian Carlos on 04-20-2024 Eosinophils/100 WBC (Bld) 1.4 % . [facility] Erythrocyte distribution wid th Auto (RBC) [Ratio]Ordered By: Christian Carlos on 04-20-2024 Erythrocyte distribution width (RBC) [Ratio] 13.9 % 12.0-14.8 [facility] Globulin Calc (S) [Mass/Vol] Ordered By: Christian Carlos on 04-20-2024 Globulin (S) [Mass/Vol] 1.9 g/dL [facility] Glucose [Mass/volume] in Ser um or PlasmaOrdered By: Christian Carlos on 04-20-2024 Glucose [Mass/Vol] 95 mg/dL 70-100 [facility] Comment on above: ADA recommended refe rence rangeRandom Glucose Reference Range is dependent on time and content of last meal. Glucose of more than 200 mg/dL in a nonstressed, ambulatory subject supports the diagnosis of Diabetes Mellitus. Hematocrit Auto (Bld) [Volum e fraction]Ordered By: Christian Carlos on 04-20-2024 Hematocrit (Bld) [Volume fraction] 43.3 % 38.8-50.0 [facility] Hemoglobin [Mass/volume] in BloodOrdered By: Christian Carlos on 04-20-2024 Hemoglobin (Bld) [Mass/Vol] 14.8 g/dL 13.0-17.0 [facility] LDH Lactate to pyruvate reac tion [Catalytic activity/Vol]on 04-20-2024 LDH LACTATE DEHYDROGENASE 212 U/L 140 - 271 U/L [facility] Lactate dehydrogenase [Enzym atic activity/volume] in Serum or Plasma by Lactate to pyOrdered By: Christian Carlos on 04-20-2024 LDH Lactate to pyruvate reaction [Catalytic activity/Vol] 212 U/L 140-271 [facility] Leukocytes [#/volume] correc christophe for nucleated erythrocytes in Blood by Automated counOrdered By: Christian Carlos on 04-20-2024 WBC corrected for nucl RBC Auto (Bld) [#/Vol] 13.3 10*3/uL High 4.1-10.5 [facility] Lymphocytes Auto (Bld) [#/Vo l]Ordered By: Christian Carlos on 04-20-2024 Lymphocytes (Bld) [#/Vol] 9.9 10*3/uL High 1.00-4.8 [facility] Lymphocytes/100 WBC Auto (Bl d)Ordered By: Christian Carlos on 04-20-2024 Lymphocytes/100 WBC (Bld) 74.8 % . [facility] MCH Auto (RBC) [Entitic mass ]Ordered By: Christian Carlos on 04-20-2024 MCH (RBC) [Entitic mass] 31.2 pg 27.5-35.2 [facility] MCHC Auto (RBC) [Mass/Vol]Or dered By: Christian Carlos on 04-20-2024 MCHC (RBC) [Mass/Vol] 34.2 g/dL 32.5-35.6 [facility] MCV Auto (RBC) [Entitic vol] Ordered By: Christian Carlos on 04-20-2024 MCV (RBC) [Entitic vol] 91.4 fL 83.5-101 [facility] Microcytes LM Ql (Bld)Ordere d By: Christian Carlos on 04-20-2024 Microcytes Ql (Bld) Slight [facility] Microcytes Ql (Bld) Microcytes [Presence ] in Blood by Light microscopy [facility] Monocytes Auto (Bld) [#/Vol] Ordered By: Christian Carlos on 04-20-2024 Monocytes (Bld) [#/Vol] 0.5 10*3/uL 0.0-0.8 [facility] Monocytes/100 WBC Auto (Bld) Ordered By: Christian Carlos on 04-20-2024 Monocytes/100 WBC (Bld) 3.7 % . [facility] Neutrophils Auto (Bld) [#/Vo l]Ordered By: Christian Carlos on 04-20-2024 Neutrophils (Bld) [#/Vol] 2.6 10*3/uL 1.8-7.7 [facility] Neutrophils/100 WBC Auto (Bl d)Ordered By: Christian Carlos on 04-20-2024 Neutrophils/100 WBC (Bld) 19.8 % . [facility] No Panel Informationon 04-[address] [facility] No Panel InformationOrdered By: Christian Carlos on 04-20-2024 Estimated GFR (CKD-EPI) > 60.0 mL/Min [facility] Creatinine Clearance (Chem 91.01 [facility] Nucleated erythrocytes [Pres ence] in Blood by Automated countOrdered By: Christian Carlos on 04-20-2024 Nucleated RBC Auto Ql (Bld) 0.3 /100{WBC} 0-0.5 [facility] Platelet adequacy [Presence] in Blood by Light microscopyOrdered By: Christian Carlos on 04-20-2024 Platelets LM Ql (Bld) Decreased Normal [facility] Platelet mean volume Auto (B ld) [Entitic vol]Ordered By: Christian Carlos on 04-20-2024 Platelet mean volume (Bld) [Entitic vol] 8.5 fL 6.6-10.1 [facility] Platelet morphology finding [Identifier] in BloodOrdered By: Christian Carlos on 04-20-2024 Platelet morphology finding Nom (Bld) Normal Normal [facility] Platelets Auto (Bld) [#/Vol] Ordered By: Christian Carlos on 04-20-2024 Platelets (Bld) [#/Vol] 108 10*3/uL Low 150-450 [facility] Potassium [Moles/volume] in Serum or PlasmaOrdered By: Christian Carlos on 04-20-2024 Potassium [Moles/Vol] 3.8 mmol/L 3.5-5.1 [facility] Protein [Mass/volume] in Ser um or PlasmaOrdered By: Christian Carlos on 04-20-2024 Protein [Mass/Vol] 6.0 g/dL Low 6.4-8.9 [facility] RBC Auto (Bld) [#/Vol]Ordere d By: Christian Carlos on 04-20-2024 RBC (Bld) [#/Vol] 4.74 10*6/uL 3.90-5.60 [facility] RBC morphologyOrdered By: Maik Carlos on 04-20-2024 RBC morphology finding Nom (Bld) N/A [facility] Serum or plasma albumin/glob ulin mass ratioOrdered By: Christian Carlos on 04-20-2024 Albumin/Globulin [Mass ratio] 2.2 {ratio} [facility] Serum or plasma anion gap de terminationOrdered By: Christian Carlos on 04-20-2024 Anion gap [Moles/Vol] 9.3 mmol/L 6.0-15.0 [facility] Sodium [Moles/volume] in Ser um or PlasmaOrdered By: Christian Carlos on 04-20-2024 Sodium [Moles/Vol] 142 mmol/L 136-145 [facility] Urea nitrogen [Mass/volume] in Serum or PlasmaOrdered By: Christian Carlos on 04-20-2024 Urea nitrogen [Mass/Vol] 20 mg/dL 7-25 [facility] WBC Auto (Bld) [#/Vol]Ordere d By: Christian Carlos on 04-20-2024 WBC (Bld) [#/Vol] 13.3 10*3/uL High 4.1-10.5 [facility] CNOVon 01-30-2024 CNOV Office Visit (CARDAV ) -- DARIUS VALERA ([id number]) 1960 M Date Time Provider Department 01/30/24 3:00 PM ITA TUTTLE During your visit today, we recorded the following information about you: Pulse Blood pressure Weight Height 66/minute 148/80 92.6 kg 1.829 m Ita Tuttle MD 01/30/2024 2:47 PM Signed [facility] [place] Sissy Zepeda Department of Cardiovascular Medicine SECTION OF REGIONAL CARDIOLOGY OUTPATIENT VISIT DATE January 30, 2024 OUTPATIENT VISIT TYPE ESTABLISHED HISTORY OF PRESENT ILLNESS: Darius Valera is a (an) 63 year old year old male who is here today for follow-up. He had elevated WBCs and was seen by outside senior environmental technician and was told might have CLL Last [...] male here today for follow up from [place], [place]. Has h/o AF s/p ablation, HTN, DMITRY, tachycardia induced CMP, and CHF. On Eliquis, Nifedipine XL, Valsartan/HCTZ added on Doxazosin. Doxazocin increased to 2 mg but has been using only 1 mg daily. Continue to have BP spikes above 150s. Sotalol was discontinued. He followed before with a local lockstitch lining setter Dr Hooks. Since last visit denies chest [...] deficit. _ (more content not included)... Normal [facility] No Panel InformationOrdered By: Christian Carlos on 01-26-2024 CBC Comment See comment [facility] Comment on above: Slide referred to dorothea thologist for review Smudge cell detectionOrdered By: Christian Carlos on 01-26-2024 Smudge cells LM Ql (Bld) Moderate [facility] Smudge cells [Presence] in B lood by Light microscopyOrdered By: Christian Carlos on 01-26-2024 Smudge cells LM Ql (Bld) Smudge cell detection [facility] Consultation Noteon 01-16-20 Consultation Note [id number]#1.00TIFF Normal [facility] Comment on above: Other Comment: [facility] CNOVon 10-03-2023 CNOV Office Visit (CARDAV ) -- DARIUS VALERA ([id number]) 1960 M Date Time Provider Department 10/03/23 1:30 PM ITA TUTTLE During your visit today, we recorded the following information about you: Pulse Respiration Blood pressure Weight 59/minute 16/minute 136/76 91.2 kg Height 1.829 m Ita Tuttle MD 10/03/2023 1:43 PM Signed [facility] [place] Sissy Zepeda Department of Cardiovascular Medicine SECTION [...] male here today for follow up from [place]. Has h/o AF s/p ablation, HTN, DMITRY, tachycardia induced CMP, and CHF. On Eliquis, Nifedipine XL, Valsartan/HCTZ added on Doxazosin. Doxazocin increased to 2 mg but has been using only 1 mg daily. Continue to have BP spikes above 150s. Sotalol was discontinued. He followed before with a local lockstitch lining setter Dr Hooks. Since last visit denies chest [...] Date Value (more content not included)... Normal [facility] ECG COMPLETEon 07-31-2023 Atrial Rate 71 BPM [facility] Calculated P [place] 12 degrees [facility] Calculated R [place] -15 degrees [facility] Calculated T [place] 28 degrees [facility] P-R Interval 172 ms [facility] QRS Duration 98 ms [facility] QT Interval 404 ms [facility] QTC Calculation (Bazett) 439 ms [facility] Ventricular Rate 71 BPM [facility] Auth for Release of Medical Recordson 07-10-2023 Auth for Release of Medical Records [id number]#1.00TIFF Normal [facility] Lab Reportson 06-09-2023 Lab Reports [id number]#1.00TIFF Normal [facility] Screenson 06-03-2023 Screens [id number]#1.00TIFF [facility] Ambulatory Visit Summaryon 1 Ambulatory Visit Summary DARIUS VALERA :1960 Visit Date:06/02/2023 Ambulatory Visit Instructions Your Diagnosis Ureteral stone with hydronephrosis Erectile dysfunction Tests Performed Urnls Dip Stick Auto w/o Microscopy POC 96696 Your Care Team Attending Physician - Iesha Gamino MD This Is Your Medications List amlodipine aspirin (aspirin 81 mg oral tablet) atenolol (atenolol 100 mg Tab) hydrochlorothiazide-lisino pril (hydrochlorothiazide-lisin opril 12.5 mg-20 mg Tab) omega-3 polyunsaturated fatty acids (Burton-3) potassium chloride (Klor-Con) Discharge Vitals Heart Rate [...] Every day Unchanged omega-3 polyunsaturated fatty acids (Burton-3) Unchanged potassium chloride (Klor-Con) Test Results Urnls Dip Stick Auto w/o Microscopy POC 20613 (06/02/2023) Bilirubin Urine Dipstick - Negative Blood Urine Dipstick - Trace-intact Glucose Urine Dipstick - Negative Ketones Urine Dipstick - Negative Leukocytes Urine Dipstick - Negative Nitrite Urine Dipstick - Negative Protein Urine Dipstick - Negative Specific Melber Urine Dipstick - 1.015 Urine Appearance Urine [...] stone Ureteral stone with hydronephrosis [facility] Patient Educationon 06-02-20 Patient Education Urology Erectile [...] these instructions at home: Medicines ? Take nemt-zyo-zdwfpjk and prescription medicines only as told by [...] cig (more content not included)... Normal [facility] Urology Office/Clinic Noteon 06-02-2023 Urology Office/Clinic Note Chief Complaint follow up to [facility]/consult HPI Staff 62 year old male seen at [facility] consult for Lt. UVJ stone,hydro,renal colic, [...] by PCP Denies medical issues, hx of TX, stroke or DM2. On ASA 81mg Portions of this record may have been created with voice recognition artificial intelligence software, specifically [employer], [employer] and or [employer]. Substitutions may have occurred due to the inherent limitations of voice recognition and artificial intelligence software. 1. Ureteral stone with hydronephrosis (N13.2: Hydronephrosis with renal and ureteral calculous obstruction) Last stone event 10 years ago, denies surgical intervention. Pt presented to [facility] ER 04/14/23 with uncontrolled left flank [...] oxalate intake fro (more content not included)... [facility] Comment on above: Result Comment: Elec tronically Signed By: Stevenson LYNCH, Iesha Wen\.br\Date and Time Signed: 06/02/23 17:30 EDT\.br\Electronically Co-Signed By: Patience Castellon\.br\Date and Time Co-Signed: 06/02/23 16:04 EDT RAD - Ultrasound Reporton RAD - Ultrasound Report [id number]#1.00CD:127 [facility] Consultation Noteon 05-19-20 Consultation Note [id number]#1.00CD:127 [facility] Insurance Correspondence Off iceon 04-16-2023 Insurance Correspondence Office [id number]#1.00CD:127 [facility] Lab Reportson 04-16-2023 Lab Reports [id number]#1.00CD:127 [facility] Consultation Noteon 04-15-20 Consultation Note [id number]#1.00CD:[address] [facility] Operative Reporton Operative Report [id number]#1.00CD:[address] [facility] RAD - MISCon 04-14-2023 RAD - MISC [id number]#1.00CD:[address] [facility] RAD - Ultrasound Reporton RAD - Ultrasound Report [id number]#1.00CD:[address] [facility] RAD - CT Reporton 04-12-2023 RAD - CT Report [id number]#1.00CD:[address] [facility] Consultation Noteon 02-19-20 Consultation Note [id number]#1.00CD:[address] [facility] MRI ANKLE RT WO CONon 2022 MRI [...] JANAY PANDYA Date: 2023-01-22 07:40 Normal [facility] CBC AUTO DIFFon 12-27-2022 BASO # 0.0 103/ul Normal 0.0-0.1 [facility] Comment on above: Performed By: #### C BC #### [facility] [address] [place] [address] Dr. Gautam Van Basophils/100 WBC (Bld) 0.4 % Normal 0.2-2.0 [facility] Comment on above: Performed By: #### C BC #### [facility] [address] [place] [address] Dr. Gautam Van EO # 0.1 103/ul Normal 0.0-0.7 [facility] Comment on above: Performed By: #### C BC #### [facility] [address] [place] [address] Dr. Gautam Van Eosinophils/100 WBC (Bld) 1.3 % Normal 0.9-7.0 [facility] Comment on above: Performed By: #### C BC #### [facility] [address] [place] [address] Dr. Gautam Van Erythrocyte distribution width (RBC) [Ratio] 12.6 % Normal 11.0-15.0 [facility] Comment on above: Performed By: #### C BC #### [facility] [address] [place] [address] Dr. Gautam Van Hematocrit (Bld) [Volume fraction] 47.0 % Normal 42.0-54.0 [facility] Comment on above: Performed By: #### C BC #### [facility] [address] [place] [address] Dr. Gautam Van Hemoglobin (Bld) [Mass/Vol] 16.1 g/dL Normal 14.0-18.0 [facility] Comment on above: Performed By: #### C BC #### [facility] [address] [place] [address] Dr. Gautam Van IG # 0.02 10e3/ul Normal 0.00-0.03 [facility] Comment on above: Performed By: #### C BC #### [facility] [address] [place] [address] Dr. Gautam Van IG % 0.2 % Normal 0.0-0.5 [facility] Comment on above: Performed By: #### C BC #### [facility] [address] [place] [address] Dr. Gautam Van LYMPH # 7.0 103/ul Critically high 1.2-3.8 [facility] Comment on above: Performed By: #### C BC #### [facility] [address] [place] [address] Dr. Gautam Van Lymphocytes/100 WBC (Bld) 64.7 % Critically high 20.5-60.0 [facility] Comment on above: Performed By: #### C BC #### [facility] [address] [place] [address] Dr. Gautam Van MANUAL DIFF REQ NO Normal [facility] Comment on above: Performed By: #### C BC #### [facility] [address] [place] [address] Dr. Gautam Van MCH (RBC) [Entitic mass] 30.7 pg Normal 25.9-34.0 [facility] Comment on above: Performed By: #### C BC #### [facility] [address] [place] [address] Dr. Gautam Van MCHC (RBC) [Mass/Vol] 34.3 g/dL Normal 29.9-35.2 [facility] Comment on above: Performed By: #### C BC #### [facility] [address] [place] [address] Dr. Gautam Van MCV (RBC) [Entitic vol] 89.7 fL Normal 80.0-94.0 [facility] Comment on above: Performed By: #### C BC #### [facility] [address] [place] [address] Dr. Gautam Van MONO # 0.5 103/ul Normal 0.3-0.8 [facility] Comment on above: Performed By: #### C BC #### [facility] [address] [address] [address] Gautam Van Monocytes/100 WBC (Bld) 4.6 % Normal 1.7-12.0 [facility] Comment on above: Performed By: #### C BC #### [facility] [address] [address] [address] Gautam Van NEUT # 3.1 103/ul Normal 1.4-6.5 [facility] Comment on above: Performed By: #### C BC #### [facility] [address] [address] [address] Gautam Van Neutrophils/100 WBC (Bld) 28.8 % Critically low 43.0-75.0 [facility] Comment on above: Performed By: #### C BC #### [facility] [address] [place] [address] Dr. Gautam Van Platelet mean volume (Bld) [Entitic vol] 10.6 fL Normal 9.5-13.5 [facility] Comment on above: Performed By: #### C BC #### [facility] [address] [place] [address] Dr. Gautam Van PLT 144 103/ul Critically low 150-450 [facility] Comment on above: Performed By: #### C BC #### [facility] [address] [place] [address] Dr. Gautam Van RBC 5.24 106/ul Normal 4.70-6.10 [facility] Comment on above: Performed By: #### C BC #### [facility] [address] [place] [address] Dr. Gautam Van WBC 10.8 103/ul Normal 4.0-11.0 [facility] Comment on above: Performed By: #### C BC #### [facility] [address] [place] [address] Dr. Gautam Van LIPID PROFILEon 12-27-2022 CHOL-HDL RATIO NORM SEE BELOW Normal [facility] Comment on above: Result Comment: 3.3 - 4.4 LOW RISK 4.4 - 7.1 AVERAGE RISK 7.1 - 11.0 MODERATE RISK >11.0 HIGH RISK Performed By: #### L IPID, T4, TSH, CMP ####[facility] [address] [address]Dr. Gautam Van Cholesterol [Mass/Vol] 183 mg/dL Normal <=200 [facility] Comment on above: Performed By: #### L IPID, T4, TSH, CMP ####[facility] [address] [address]Dr. Gautam Van Cholesterol in HDL [Mass/Vol] 70 mg/dL Critically high 40-60 [facility] Comment on above: Performed By: #### L IPID, T4, TSH, CMP ####[facility] [address] [place], [place] [address]Dr. Gautam Van Cholesterol in LDL [Mass/Vol] 104.2 mg/dL Normal [facility] Comment on above: Performed By: #### L IPID, T4, TSH, CMP ####[facility] [address] [place], [place] [address]Dr. Gautam Van Cholesterol.total/Chol esterol in HDL [Mass ratio] 2.6 {ratio} Normal [facility] Comment on above: Performed By: #### L IPID, T4, TSH, CMP ####[facility] [address] [place], [place] [address]Dr. Gautam Van HDL NORMAL > or = 60 mg/dl - LO W CARDIOVASCULAR RISK <40 mg/dl - HIGH CARDIOVASCULAR RISK Normal [facility] Comment on above: Performed By: #### L IPID, T4, TSH, CMP ####[facility] [address] [place], [place] [address]Dr. Gautam Van LDL CALC NORMAL SEE BELOW Normal [facility] Comment on above: Result Comment: <100 mg/dl OPTIMAL 100 - 129 mg/dl NEAR OR ABOVE OPTIMAL 130 - 159 mg/dl BORDERLINE HIGH 160 - 189 mg/dl HIGH >190 mg/dl VERY HIGH Performed By: #### L IPID, T4, TSH, CMP ####[facility] [address] [place], [place] [address]Dr. Gautam Van Triglyceride [Mass/Vol] 44 mg/dL Normal <=150 [facility] Comment on above: Performed By: #### L IPID, T4, TSH, CMP ####[facility] [address] [address]Dr. Gautam Van VLDL CALC 8.8 mg/dL Normal [facility] Comment on above: Performed By: #### L IPID, T4, TSH, CMP ####[facility] [address] [id number]. Gautam Van PROF 14(COMP METB)on 023 Albumin [Mass/Vol] 4.0 g/dL Normal 3.4-5.0 [facility] Comment on above: Performed By: #### L IPID, T4, TSH, CMP #### [facility] [address] [address] [address] Gautam Van Albumin/Globulin [Mass ratio] 1.2 {ratio} Normal [facility] Comment on above: Performed By: #### L IPID, T4, TSH, CMP #### [facility] [address] [address] [address] Gautam Van ALP [Catalytic activity/Vol] 104 U/L Normal 46-116 [facility] Comment on above: Performed By: #### L IPID, T4, TSH, CMP #### [facility] [address] [address] [address] Gautam Van ALT [Catalytic activity/Vol] 36 U/L Normal 16-63 [facility] Comment on above: Performed By: #### L IPID, T4, TSH, CMP #### [facility] [address] [address] [address] Gautam Van Anion gap [Moles/Vol] 9.8 mmol/L Normal [facility] Comment on above: Performed By: #### L IPID, T4, TSH, CMP #### [facility] [address] [address] [address] Gautam Van AST [Catalytic activity/Vol] 22 U/L Normal 15-37 [facility] Comment on above: Performed By: #### L IPID, T4, TSH, CMP #### [facility] [address] [place] [address] Dr. Gautam Van Bilirubin [Mass/Vol] 0.9 mg/dL Normal 0.2-1.0 [facility] Comment on above: Performed By: #### L IPID, T4, TSH, CMP #### [facility] [address] [place] [address] Dr. Gautam Van Calcium [Mass/Vol] 9.1 mg/dL Normal 8.5-10.1 [facility] Comment on above: Performed By: #### L IPID, T4, TSH, CMP #### [facility] [address] [place] [address] Dr. Gautam Van Chloride [Moles/Vol] 103 mmol/L Normal 98-107 [facility] Comment on above: Performed By: #### L IPID, T4, TSH, CMP #### [facility] [address] [place] [address] Dr. Gautam Van CO2 [Moles/Vol] 30.6 mmol/L Normal 21.0-32.0 [facility] Comment on above: Performed By: #### L IPID, T4, TSH, CMP #### [facility] [address] [place] [address] Dr. Gautam Van Creatinine [Mass/Vol] 0.81 mg/dL Normal 0.70-1.30 [facility] Comment on above: Performed By: #### L IPID, T4, TSH, CMP #### [facility] [address] [place] [address] Dr. Gautam Van EGFR-AF NEPALESE >60 Normal >=60 [facility] Comment on above: Performed By: #### L IPID, T4, TSH, CMP #### [facility] [address] [place] [address] Dr. Gautam Van EGFR-NON AF NEPALESE >60 Normal >=60 [facility] Comment on above: Performed By: #### L IPID, T4, TSH, CMP #### [facility] [address] [place] [address] Dr. Gautam Van Globulin (S) [Mass/Vol] 3.3 g/dL Normal [facility] Comment on above: Performed By: #### L IPID, T4, TSH, CMP #### [facility] [address] [address] [address] Gautam Van Glucose [Mass/Vol] 103 mg/dL Normal 74-106 [facility] Comment on above: Performed By: #### L IPID, T4, TSH, CMP #### [facility] [address] [address] [address] Gautam Van Potassium [Moles/Vol] 4.4 mmol/L Normal 3.5-5.1 [facility] Comment on above: Performed By: #### L IPID, T4, TSH, CMP #### [facility] [address] [place] [address] Dr. Gautam Van Protein [Mass/Vol] 7.3 g/dL Normal 6.4-8.2 [facility] Comment on above: Performed By: #### L IPID, T4, TSH, CMP #### [facility] [address] [place] [address] Dr. Gautam Van Sodium [Moles/Vol] 139 mmol/L Normal 136-145 [facility] Comment on above: Performed By: #### L IPID, T4, TSH, CMP #### [facility] [address] [place] [address] Dr. Gautam Van Urea nitrogen [Mass/Vol] 16.0 mg/dL Normal 7.0-18.0 [facility] Comment on above: Performed By: #### L IPID, T4, TSH, CMP #### [facility] [address] [place] [address] Dr. Gautam Van Urea nitrogen/Creatinine [Mass ratio] 19.8 mg/mg Normal [facility] Comment on above: Performed By: #### L IPID, T4, TSH, CMP #### [facility] [address] [place] [address] Dr. Gautam Van T4on 12-27-2022 T4 [Mass/Vol] 9.10 ug/dL Normal 4.50-12.10 [facility] Comment on above: Performed By: #### L IPID, T4, TSH, CMP ####[facility] [address] [place], [place] [address]VpDr. Gautam Van TSHon 12-27-2022 TSH 1.043 uIU/mL Normal 0.358-3.74 0 [facility] Comment on above: Performed By: #### L IPID, T4, TSH, CMP #### [facility] [address] [place], [place] [address] FOOT RT WO [...] by: KIRSTIE DODD Date: 2022-11-17 08:57 Normal [facility] Basic metabolic 2000 panelon 10-17-2022 Anion gap [Moles/Vol] 9 mmol/L Normal 9-18 [facility] Comment on above: Order Comment: Speci men Type: BLOOD SPECIMEN Ordering Facility: [facility] Address: [facility] [place] [address] Performed By: #### 1 9123-9, 19681-1 #### [facility] CLIA [id number] [facility] [place] [address] [place] Calcium [Mass/Vol] 9.4 mg/dL Normal 8.5-10.2 [facility] Comment on above: Order Comment: Speci men Type: BLOOD SPECIMEN Ordering Facility: [facility] Address: [address] Performed By: #### 1 239, 73017-1 #### [facility] CLIA [id number] [address] [place] [address] [place] Chloride [Moles/Vol] 101 mmol/L Normal 97-105 [facility] Comment on above: Order Comment: Speci men Type: BLOOD SPECIMEN Ordering Facility: [facility] Address: [address] Performed By: #### 1 9, 03995-3 #### [facility] CLIA [id number] [address] [place] [address] [place] CO2 [Moles/Vol] 30 mmol/L Normal 22-30 [facility] Comment on above: Order Comment: Speci men Type: BLOOD SPECIMEN Ordering Facility: [facility] Address: [address] Performed By: #### 1 239, 49506-1 #### [facility] CLIA [id number] [address] [place] [address] [place] Creatinine [Mass/Vol] 1.01 mg/dL Normal 0.73-1.22 [facility] Comment on above: Order Comment: Speci men Type: BLOOD SPECIMEN Ordering Facility: [facility] Address: [address] Performed By: #### 1 91239, 45917-5 #### [facility] CLIA [id number] [address] [place] [address] [place] ESTIMATED GLOMERULAR FILTRATION RATE 84 mL/min/1.73m??? Normal >=60 [facility] Comment on above: Order Comment: Speci men Type: BLOOD SPECIMEN Ordering Facility: [facility] Address: [address] [place], [place] [id number] Result Comment: Kaylee mated Glomerular Filtration Rate [...] actual GFR. Performed By: #### 1 9123-9, 28193-0 #### [facility] CLIA [id number] [address] [place] [address] [place] Glucose [Mass/Vol] 92 mg/dL Normal 74-99 [facility] Comment on above: Order Comment: Geovanny smiley Type: BLOOD SPECIMEN Ordering Facility: [facility] Address: [place] [id number] Result Comment: The [place] [employer] (ADA) provides guidance for cutoff [...] Standards of Medical Care in Diabetes 2016, [place] [employer]. Diabetes Care. 2016.39(Suppl 1). Performed By: #### 1 9123-9, 79159-4 #### [facility] CLIA [id number] [address] [place] [address] [place] Potassium [Moles/Vol] 4.4 mmol/L Normal 3.7-5.1 [facility] Comment on above: Order Comment: Geovanny smiley Type: BLOOD SPECIMEN Ordering Facility: [facility] Address: [address] [place] [address] Performed By: #### 1 9123-9, 50253-7 #### [facility] CLIA [id number] [address] [place] [address] [place] Sodium [Moles/Vol] 140 mmol/L Normal 136-144 [facility] Comment on above: Order Comment: Speci men Type: BLOOD SPECIMEN Ordering Facility: [facility] Address: [address] [place] [address] Performed By: #### 1 9123-9, 80109-1 #### [facility] CLIA [id number] [address] [place] [address] [place] Urea nitrogen [Mass/Vol] 22 mg/dL Normal 9-24 [facility] Comment on above: Order Comment: Speci men Type: BLOOD SPECIMEN Ordering Facility: [facility] Address: [address] [place] [address] Performed By: #### 1 9123-9, 38200-8 #### [facility] CLIA [id number] [address] [place] [address] [place] Anion gap [Moles/Vol] 9 mmol/L 9 - 18 mmol/L [facility] Calcium [Mass/Vol] 9.4 mg/dL 8.5 - 10. 2 mg/dL [facility] Chloride [Moles/Vol] 101 mmol/L 97 - 10 5 mmol/L [facility] CO2 [Moles/Vol] 30 mmol/L 22 - 30 mmol/L [facility] Creatinine [Mass/Vol] 1.01 mg/dL 0.73 - 1.22 mg/dL [facility] Estimated Glomerular Filtration Rate 84 mL/min/1.73m >=60 mL/min/1.7 3m [facility] Glucose [Mass/Vol] 92 mg/dL 74 - 99 mg/dL [facility] Potassium [Moles/Vol] 4.4 mmol/L 3.7 - 5.1 mmol/L [facility] Sodium [Moles/Vol] 140 mmol/L 136 - 144 mmol/L [facility] Urea nitrogen [Mass/Vol] 22 mg/dL 9 - 24 mg/dL [facility] MAGNESIUM BLDon 10-17-2022 Magnesium [Mass/Vol] 2.1 mg/dL 1.7 - 2 .3 mg/dL [facility] Magnesium SerPl-mCncon 10-17 Magnesium [Mass/Vol] 2.1 mg/dL Normal 1.7-2.3 [facility] Comment on above: Order Comment: Speci men Type: BLOOD SPECIMEN Ordering Facility: [facility] Address: [place] [address] Performed By: #### 1 9123-9, 48196-8 #### [facility] CLIA [id number] [address] [facility] [place] [address] [place] XR ANKLE RT [...] DIANE MENEZES Date: 2022-10-09 07:38 Normal [facility] ARRHYTHMIA TRANS TELE MEASUR James 06-10-2022 Measure MO Interval 179 [facility] MEASURE QRS Interval 60 [facility] MEASURE QT Interval 326 [facility] MEASURE RR INTERVAL MAX 78.86 [facility] Symptoms routine [facility] ARRHYTHMIA TRANS TELE MEASUR James 05-06-2022 Arrhythmia-Activity tried a couple diffe rent times [facility] Measure MO Interval [facility] MEASURE QRS Interval 80 [facility] MEASURE QT Interval 332 Jeb [facility] MEASURE RR INTERVAL MAX 91.21 [facility] Symptoms routine [facility] ARRHYTHMIA TRANS TELE MEASUR James 04-22-2022 Measure [place] Interval 134 [facility] MEASURE QRS Interval 91 [facility] MEASURE QT Interval 396 [facility] MEASURE RR INTERVAL MAX 81.74 [facility] Symptoms routine [facility] ARRHYTHMIA TRANS TELE MEASUR James 04-04-2022 Measure MO Interval 201 [facility] MEASURE QRS Interval [facility] MEASURE QT Interval 362 [facility] MEASURE RR INTERVAL MAX 82.87 [facility] Symptoms routine [facility] CREATININE, BLOOD (POC)on Creatinine [Mass/Vol] 0.90 mg/dL 0.7 - 1.4 mg/dL [facility] GFR/1.73 sq M.predicted among non-blacks MDRD (S/P/Bld) [Vol rate/Area] mL/min/{1.73_m2} [facility] CT PULMONARY VEIN W IVCONon 03-22-2022 Radiology Result ACTIONABLE Abnormal [facility] ARRHYTHMIA TRANS TELE MEASUR James 03-19-2022 Measure MO Interval 164 [facility] MEASURE QRS Interval 97 [facility] MEASURE QT Interval 362 [facility] MEASURE RR INTERVAL MAX 75.85 [facility] Symptoms routine - BP is elev ated, pt. feeling palpitaions when lying down, tired-3-5 day [facility] ARRHYTHMIA TRANS TELE MEASUR James 03-13-2022 Measure MO Interval 164 [facility] MEASURE QRS Interval 107 [facility] MEASURE QT Interval 450 [facility] MEASURE RR INTERVAL MAX 75.85 [facility] Symptoms routine [facility] ARRHYTHMIA TRANS TELE MEASUR James 03-04-2022 Measure MO Interval 141 [facility] MEASURE QRS Interval 60 [facility] MEASURE QT Interval 318 [facility] MEASURE RR INTERVAL MAX 77.16 [facility] Symptoms routine [facility] ARRHYTHMIA TRANS TELE MEASUR James 02-18-2022 Measure MO Interval 130 [facility] MEASURE QRS Interval 60 [facility] MEASURE QT Interval 450 [facility] MEASURE RR INTERVAL MAX 70.82 [facility] Symptoms routine [facility] ARRHYTHMIA TRANS TELE MEASUR James 02-12-2022 Measure [place] Interval 130 [facility] MEASURE QRS Interval 60 [facility] MEAS[facility] QT Interval 450 [facility] MEASURE RR INTERVAL MAX 71.95 [facility] Symptoms routine [facility] ARRHYTHMIA TRANS TELE MEASUR James 02-08-2022 Measure MO Interval 130 [facility] MEASURE QRS Interval 60 [facility] ME[facility]URE QT Interval [facility] MEASURE RR INTERVAL MAX 72.53 [facility] Symptoms routine [facility] ARRHYTHMIA TRANS TELE MEASUR James 02-04-2022 Measure [place] Interval [address] [facility] MEASURE QRS Interval 60 [facility] MEASURE QT Interval 368 [facility] MEASURE RR INTERVAL MAX 67.8 [facility] Symptoms routine [facility] ARRHYTHMIA TRANS TELE MEASUR James 01-28-2022 Measure [place] Interval 130 [facility] MEASURE QRS Interval 60 [facility] MEASURE QT Interval 382 [facility] MEASURE RR INTERVAL MAX 71.89 [facility] Symptoms routine [facility] ARRHYTHMIA TRANS TELE MEASUR James 01-22-2022 Measure [place] Interval 130 [facility] MEASURE QRS Interval 60 [facility] MEASURE QT Interval 328 [facility] MEASURE RR INTERVAL MAX 77.83 [facility] Symptoms routine [facility] ARRHYTHMIA TRANS TELE MEASUR James 01-18-2022 Measure [place] Interval 130 [facility] MEASURE QRS Interval 60 [facility] MEASURE QT Interval 450 [facility] MEASURE RR INTERVAL MAX 79.56 [facility] Symptoms routine [facility] ARRHYTHMIA TRANS TELE MEASUR James 01-14-2022 Measure [place] Interval 130 [facility] MEASURE QRS Interval 60 [facility] MEASURE QT Interval 348 [facility] MEASURE RR INTERVAL MAX 66.79 [facility] Symptoms Routine [facility] ARRHYTHMIA TRANS TELE MEASUR James 01-07-2022 Measure [place] Interval 173 [facility] MEASURE QRS Interval 76 [facility] MEASURE QT Interval 389 [facility] MEASURE RR INTERVAL MAX 68.15 [facility] Symptoms routine [facility] ARRHYTHMIA TRANS TELE MEASUR James 12-17-2021 Measure [place] Interval 186 [facility] MEASURE QRS Interval 80 [facility] MEASURE QT Interval 369 [facility] MEASURE RR INTERVAL MAX 74.32 [facility] Symptoms routine [facility] ARRHYTHMIA TRANS TELE MEASUR James 12-11-2021 Measure [place] Interval 130 [facility] MEASURE QRS Interval 60 [facility] MEASURE QT Interval 345 [facility] MEASURE RR INTERVAL MAX 73.06 [facility] Symptoms baseline [facility] ARRHYTHMIA TRANS TELE MEASUR James 12-04-2021 Measure [place] Interval 191 [facility] MEASURE QRS Interval 97 [facility] MEASURE QT Interval 450 [facility] MEASURE RR INTERVAL MAX 70.75 [facility] Symptoms baseline [facility] Tobacco Screening.on 022 Tobacco use status [facility] b) No -[facility]-[place] 250 DO Work Phone: No Panel Informationon 08-29 27.0\S\27.0 Normal 22.0-30.0 [facility] Kandy-Otf [place] 250 DO Work Phone: Comment on above: PERFORMED BY:[place] [address] [place] [place] [id number] MEDICAL DIRECTORADEEL LOPES M.D. 99\S\99 Normal 95-114 [facility] [place] 250 DO Work Phone: [phone] 3.8\S\3.8 Normal 3.5-5.1 [facility] [place] 250 DO Work Phone: [phone] 139\S\139 Normal 136-146 [facility] Urban Hugo DO Work Phone: IO EKG Electrocardiogram- 12 Leadon 06-26-2021 IO EKG Electrocardiogram- 12 Lead See Scanned Document [facility] Urban Hugo DO Work Phone: Office Visit (Cardiology)on 06-26-2021 [...] signing my name below, I, Diallo Crain LPNibsarabjit, attest that this documentation has been prepared under the direction and in the presence of Dr. Tera Davison MD. All medical record entries made by the Dialloibsarabjit were at my direction and personally dictated [...] Vital Signs Recorded: 26Jun2021 01:28PMRecorded: 26Jun2021 01:06PM Ofroxaeo152, RUE, Skawayd538, LUE, Sitting Pvsusrrcp38, R (more content not included)... Normal [employer] Tobacco Screening.on 021 Fall risk assessment a) No falls within the last year [facility] 250 DO Work Phone: Tobacco use status [facility] b) No -[facility] 250 DO Work Phone: CREATININEon 09-05-2020 Creatinine [Mass/Vol] 0.91 mg/dL Normal 0.50 - 1.30 [facility] Comment on above: Performed By: #### C REAT #### [address] [id number] GFR- AM. >60 Normal >60 [facility] Comment on above: Result Comment: CALC ULATIONS OF ESTIMATED GFR ARE PERFORMED USING THE MDRD STUDY EQUATION FOR THE IDMS-TRACEABLE CREATININE METHODS. CLIN CHEM 2007;53:766-72 Performed By: #### C REAT #### [address] [id number] GFR-NON AM. >60 Normal >60 [facility] Comment on above: Performed By: #### C REAT #### [address] [id number] ELECTROLYTE PANELon 09-05-19 Anion gap [Moles/Vol] 12 mmol/L Normal 10 - 20 [facility] Comment on above: Performed By: #### E LECT #### [address] [id number] Chloride [Moles/Vol] 100 mmol/L Normal 98 - 107 [facility] Comment on above: Performed By: #### E LECT #### [address] [id number] HCO3 (Bld) [Moles/Vol] 31 mmol/L Normal 21 - 32 [facility] Comment on above: Performed By: #### E LECT #### [address] [id number] Potassium [Moles/Vol] 3.9 mmol/L Normal 3.5 - 5.3 [facility] Comment on above: Performed By: #### E LECT #### [address] [id number] Sodium [Moles/Vol] 139 mmol/L Normal 136 - 145 [facility] Comment on above: Performed By: #### E LECT #### [address] [id number] UREA NITROGENon 09-05-2020 Urea nitrogen [Mass/Vol] 19 mg/dL Normal 6 - 23 [facility] Comment on above: Performed By: #### U TRIP #### [address] [id number] Vital Signs Date Time Vital Sign Value Performing Clinician Facility 05-27-2025 12:51-0400 Body height 182.88 cm Linda Hemmer SENIOR MECHANICAL ESTIMATOR-C Work Phone: [facility] 05-27-2025 12:51-0400 Body mass index (BMI) [Ratio] 26.4 kg/m2 Linda Hemmer SENIOR MECHANICAL ESTIMATOR-C Work Phone: [facility] 05-27-2025 12:51-0400 Body temperature 97.8 [degF] Linda Hemmer SENIOR MECHANICAL ESTIMATOR-C Work Phone: [facility] 05-27-2025 12:51-0400 Body weight 88.45 kg Linda Hemmer SENIOR MECHANICAL ESTIMATOR-C Work Phone: [facility] 05-27-2025 12:51-0400 Diastolic blood pressure 76 mm[Hg] Linda Hemmer SENIOR MECHANICAL ESTIMATOR-C Work Phone: [facility] 05-27-2025 12:51-0400 Heart rate 65 /min Linda Hemmer SENIOR MECHANICAL ESTIMATOR-C Work Phone: [facility] 05-27-2025 12:51-0400 Respiratory rate 16 /min Linda Hemmer SENIOR MECHANICAL ESTIMATOR-C Work Phone: [facility] 05-27-2025 12:51-0400 SaO2% (BldA) [Mass fraction] 99 % Linda Hemmer SENIOR MECHANICAL ESTIMATOR-C Work Phone: [facility] 05-27-2025 12:51-0400 Systolic blood pressure 140 mm[Hg] Linda Hemmer SENIOR MECHANICAL ESTIMATOR-C Work Phone: [facility] 05-13-2025 09:38-0400 Body height 182.88 cm Linda Hemmer SENIOR MECHANICAL ESTIMATOR-C Work Phone: [facility] 05-13-2025 09:38-0400 Body mass index (BMI) [Ratio] 26 kg/m2 Linda Hemmer SENIOR MECHANICAL ESTIMATOR-C Work Phone: [facility] 05-13-2025 09:38-0400 Body temperature 98.2 [degF] Linda Hemmer SENIOR MECHANICAL ESTIMATOR-C Work Phone: [facility] 05-13-2025 09:38-0400 Body weight 87.08 kg Linda Hemmer SENIOR MECHANICAL ESTIMATOR-C Work Phone: [facility] 05-13-2025 09:38-0400 Diastolic blood pressure 78 mm[Hg] Linda Hemmer SENIOR MECHANICAL ESTIMATOR-C Work Phone: [facility] 05-13-2025 09:38-0400 Heart rate 66 /min Linda Hemmer SENIOR MECHANICAL ESTIMATOR-C Work Phone: [facility] 05-13-2025 09:38-0400 Respiratory rate 16 /min Linda Hemmer SENIOR MECHANICAL ESTIMATOR-C Work Phone: [facility] 05-13-2025 09:38-0400 SaO2% (BldA) [Mass fraction] 100 % Linda Hemmer SENIOR MECHANICAL ESTIMATOR-C Work Phone: [facility] 05-13-2025 09:38-0400 Systolic blood pressure 148 mm[Hg] Linda Hemmer SENIOR MECHANICAL ESTIMATOR-C Work Phone: [facility] 04-04-2025 14:32-0400 Body height 182.9 cm Bill Tuttle MD Work Phone: [facility] 04-04-2025 14:32-0400 Body mass index (BMI) [Ratio] 26.49 kg/m2 Bill Tuttle MD Work Phone: [facility] 04-04-2025 14:32-0400 Body weight 88.6 kg Bill Tuttle MD Work Phone: [facility] 04-04-2025 14:32-0400 Diastolic blood pressure 88 mm[Hg] Bill Tuttle MD Work Phone: [facility] 04-04-2025 14:32-0400 Heart rate 76 /min Bill Tuttle MD Work Phone: [facility] 04-04-2025 14:32-0400 Systolic blood pressure 132 mm[Hg] Bill Tuttle MD Work Phone: [facility] 03-04-2025 14:53-0400 Body height 182.88 cm Linda Hemmer SENIOR MECHANICAL ESTIMATOR-C Work Phone: [facility] 03-04-2025 14:53-0400 Body mass index (BMI) [Ratio] 26.9 kg/m2 Linda Hemmer SENIOR MECHANICAL ESTIMATOR-C Work Phone: [facility] 03-04-2025 14:53-0400 Body temperature 97.7 [degF] Linda Hemmer SENIOR MECHANICAL ESTIMATOR-C Work Phone: [facility] 03-04-2025 14:53-0400 Body weight 90.26 kg Linda Hemmer SENIOR MECHANICAL ESTIMATOR-C Work Phone: [facility] 03-04-2025 14:53-0400 Diastolic blood pressure 79 mm[Hg] Linda Hemmer SENIOR MECHANICAL ESTIMATOR-C Work Phone: [facility] 03-04-2025 14:53-0400 Heart rate 65 /min Linda Hemmer SENIOR MECHANICAL ESTIMATOR-C Work Phone: [facility] 03-04-2025 14:53-0400 Respiratory rate 18 /min Linda Hemmer SENIOR MECHANICAL ESTIMATOR-C Work Phone: [facility] 03-04-2025 14:53-0400 SaO2% (BldA) [Mass fraction] 98 % Linda Hemmer SENIOR MECHANICAL ESTIMATOR-C Work Phone: [facility] 03-04-2025 14:53-0400 Systolic blood pressure 152 mm[Hg] Linda Hemmer SENIOR MECHANICAL ESTIMATOR-C Work Phone: [facility] 03-01-2025 09:26-0400 Body height 182.9 cm Linda Jansen PA Work Phone: [facility] 03-01-2025 09:26-0400 Body mass index (BMI) [Ratio] 27.04 kg/m2 Linda Hemmer PA Work Phone: [facility] 03-01-2025 09:26-0400 Body weight 90.45 kg Linda Hemmer PA Work Phone: [facility] 03-01-2025 09:26-0400 Diastolic blood pressure 84 mm[Hg] Linda Hemmer PA Work Phone: [facility] 03-01-2025 09:26-0400 Heart rate 72 /min Linda Hemmer PA Work Phone: [facility] 03-01-2025 09:26-0400 Respiratory rate 16 /min Linda Hemmer PA Work Phone: [facility] 03-01-2025 09:26-0400 SaO2% (BldA) [Mass fraction] 98 % Linda Hemmer PA Work Phone: [facility] 03-01-2025 09:26-0400 Systolic blood pressure 132 mm[Hg] Linda Hemmer PA Work Phone: [facility] 02-19-2025 09:35-0400 Body height 182.88 cm [facility] 02-19-2025 09:35-0400 Body mass index (BMI) [Ratio] 27.3 kg/m2 [facility] 02-19-2025 09:35-0400 Body temperature 98.7 [degF] [facility] 02-19-2025 09:35-0400 Body weight 91.28 kg [facility] 02-19-2025 09:35-0400 Diastolic blood pressure 74 mm[Hg] [facility] 02-19-2025 09:35-0400 Heart rate 73 /min [facility] 02-19-2025 09:35-0400 Respiratory rate 18 /min [facility] 02-19-2025 09:35-0400 SaO2% (BldA) [Mass fraction] 97 % [facility] 02-19-2025 09:35-0400 Systolic blood pressure 124 mm[Hg] [facility] 02-10-2025 10:48-0400 Diastolic blood pressure 91 mm[Hg] [facility] 02-10-2025 10:48-0400 Heart rate 77 /min [facility] 02-10-2025 10:48-0400 Respiratory rate 18 /min [facility] 02-10-2025 10:48-0400 SaO2% (BldA) [Mass fraction] 100 % [facility] 02-10-2025 10:48-0400 Systolic blood pressure 150 mm[Hg] [facility] 02-10-2025 09:16-0400 Body height 182.88 cm [facility] 02-10-2025 09:16-0400 Body weight 90.71 kg [facility] 01-21-2025 15:04-0400 Body height 182.88 cm [facility] 01-21-2025 15:04-0400 Body mass index (BMI) [Ratio] 27.9 kg/m2 [facility] 01-21-2025 15:04-0400 Body temperature 98.2 [degF] [facility] 01-21-2025 15:04-0400 Body weight 93.44 kg [facility] 01-21-2025 15:04-0400 Diastolic blood pressure 89 mm[Hg] [facility] 01-21-2025 15:04-0400 Heart rate 62 /min [facility] 01-21-2025 15:04-0400 Respiratory rate 18 /min [facility] 01-21-2025 15:04-0400 SaO2% (BldA) [Mass fraction] 98 % [facility] 01-21-2025 15:04-0400 Systolic blood pressure 160 mm[Hg] [facility] 12-09-2024 15:34-0400 Body height 182.9 cm Eulalio Irby [employer] Work Phone: [facility] 12-09-2024 15:34-0400 Body mass index (BMI) [Ratio] 28.21 kg/m2 Eulalio Irby [employer] Work Phone: [facility] 12-09-2024 15:34-0400 Body weight 94.35 kg Eulalio Irby DO Work Phone: [facility] 09-30-2024 15:52-0500 Body height 182.9 cm Eulalio Irby DO Work Phone: [facility] 09-30-2024 15:52-0500 Body mass index (BMI) [Ratio] 28.35 kg/m2 Eulalio Irby DO Work Phone: [facility] 09-30-2024 15:52-0500 Body temperature 97.39 [degF] Eulalio Irby DO Work Phone: [facility] 09-30-2024 15:52-0500 Body weight 94.8 kg Eulalio Irby DO Work Phone: [facility] 09-21-2024 16:43-0500 Body height 182.9 cm Tony Ebbitt PA-C Work Phone: [facility] 09-21-2024 16:43-0500 Body mass index (BMI) [Ratio] 27.81 kg/m2 Tony Ebbitt PA-C Work Phone: [facility] 09-21-2024 16:43-0500 Body weight 93 kg Tony Ebbitt PA-C Work Phone: [facility] 09-21-2024 16:43-0500 Diastolic blood pressure 82 mm[Hg] Tony Ebbitt PA-C Work Phone: [facility] 09-21-2024 16:43-0500 Systolic blood pressure 142 mm[Hg] Tony Ebbitt PA-C Work Phone: [facility] 09-15-2024 15:28-0500 Body height 182.9 cm Linda Jansen PA Work Phone: [facility] 09-15-2024 15:28-0500 Body mass index (BMI) [Ratio] 28.4 kg/m2 Linda Hemmer PA Work Phone: [facility] 09-15-2024 15:28-0500 Body temperature 97.7 [degF] Linda Hemmer PA Work Phone: [facility] 09-15-2024 15:28-0500 Body weight 94.98 kg Linda Hemmer PA Work Phone: [facility] 09-15-2024 15:28-0500 Diastolic blood pressure 78 mm[Hg] Linda Hemmer PA Work Phone: [facility] 09-15-2024 15:28-0500 Heart rate 64 /min Linda Hemmer PA Work Phone: [facility] 09-15-2024 15:28-0500 Respiratory rate 16 /min Linda Hemmer PA Work Phone: [facility] 09-15-2024 15:28-0500 SaO2% (BldA) [Mass fraction] 98 % Linda Hemmer PA Work Phone: [facility] 09-15-2024 15:28-0500 Systolic blood pressure 124 mm[Hg] Linda Hemmer PA Work Phone: [facility] 08-24-2024 11:04-0500 Body height 182.9 cm Eulalio Brown DO Work Phone: [facility] 08-24-2024 11:04-0500 Body mass index (BMI) [Ratio] 27.4 kg/m2 Eulalio Brown DO Work Phone: [facility] 08-24-2024 11:04-0500 Body temperature 97.39 [degF] Eulalio Brown DO Work Phone: [facility] 08-24-2024 11:04-0500 Body weight 91.63 kg Eulalio Brown DO Work Phone: [facility] 08-06-2024 15:24-0500 Body height 182.88 cm Sedrick Ye MD Work Phone: [facility] 08-06-2024 15:24-0500 Body weight 92.98 kg Sedrick Ye MD Work Phone: [facility] 07-27-2024 15:52-0500 Body height 182.9 cm Eulalio Irby DO Work Phone: [facility] 07-27-2024 15:52-0500 Body mass index (BMI) [Ratio] 27.4 kg/m2 Eulalio Irby DO Work Phone: [facility] 07-27-2024 15:52-0500 Body weight 91.63 kg Eulalio Irby DO Work Phone: [facility] 06-15-2024 15:49-0400 Body height 182.9 cm Eulalio Irby DO Work Phone: [facility] 06-15-2024 15:49-0400 Body mass index (BMI) [Ratio] 27.4 kg/m2 Eulalio Irby DO Work Phone: [facility] 06-15-2024 15:49-0400 Body weight 91.63 kg Eulalio Irby DO Work Phone: [facility] 06-11-2024 09:58-0400 Body height 182.9 cm Grace Haque MD Work Phone: [facility] 06-11-2024 09:58-0400 Body mass index (BMI) [Ratio] 27.4 kg/m2 Grace Haque MD Work Phone: [facility] 06-11-2024 09:58-0400 Body weight 91.63 kg Grace Haque MD Work Phone: [facility] 06-10-2024 16:21-0400 Body height 182.9 cm Sedrick Lyons SENIOR MECHANICAL ESTIMATOR Work Phone: [facility] 06-10-2024 16:21-0400 Body mass index (BMI) [Ratio] 27.4 kg/m2 Sedrick Lyons SENIOR MECHANICAL ESTIMATOR Work Phone: [facility] 06-10-2024 16:21-0400 Body weight 91.63 kg Sedrick Lyons SENIOR MECHANICAL ESTIMATOR Work Phone: [facility] 06-10-2024 16:21-0400 Diastolic blood pressure 84 mm[Hg] Sedrick Lyons SENIOR MECHANICAL ESTIMATOR Work Phone: [facility] 06-10-2024 16:21-0400 Heart rate 67 /min Sedrick Lyons SENIOR MECHANICAL ESTIMATOR Work Phone: [facility] 06-10-2024 16:21-0400 SaO2% (BldA) [Mass fraction] 98 % Sedrick Lyons SENIOR MECHANICAL ESTIMATOR Work Phone: [facility] 06-10-2024 16:21-0400 Systolic blood pressure 134 mm[Hg] Sedrick Lyons SENIOR MECHANICAL ESTIMATOR Work Phone: [facility] 05-21-2024 09:21-0400 Body height 182.9 cm Grace Haque MD Work Phone: [facility] 05-21-2024 09:21-0400 Body mass index (BMI) [Ratio] 27.12 kg/m2 Grace Haque MD Work Phone: [facility] 05-21-2024 09:21-0400 Body weight 90.72 kg Grace Haque MD Work Phone: [facility] 05-21-2024 09:21-0400 Diastolic blood pressure 80 mm[Hg] Grace Haque MD Work Phone: [facility] 05-21-2024 09:21-0400 Systolic blood pressure 120 mm[Hg] Grace Haque MD Work Phone: [facility] 04-23-2024 14:57-0400 Body height 182.88 cm MD Sedrick Ye Work Phone: [facility] 04-23-2024 14:57-0400 Body mass index (BMI) [Ratio] 26.7 kg/m2 MD Sedrick Ye Work Phone: [facility] 04-23-2024 14:57-0400 Body temperature 97.3 [degF] MD Sedrick Ye Work Phone: [facility] 04-23-2024 14:57-0400 Body weight 89.35 kg MD Sedrick Ye Work Phone: [facility] 04-23-2024 14:57-0400 Diastolic blood pressure 83 mm[Hg] MD Sedrick Ye Work Phone: [facility] 04-23-2024 14:57-0400 Heart rate 62 /min MD Sedrick Ye Work Phone: [facility] 04-23-2024 14:57-0400 Respiratory rate 16 /min MD Sedrick Ye Work Phone: [facility] 04-23-2024 14:57-0400 SaO2% (BldA) [Mass fraction] 97 % MD Sedrick Ye Work Phone: [facility] 04-23-2024 14:57-0400 Systolic blood pressure 153 mm[Hg] MD Sedrick Ye Work Phone: [facility] 01-30-2024 14:12-0400 Body height 182.9 cm Bill Tuttle MD Work Phone: [facility] 01-30-2024 14:12-0400 Body mass index (BMI) [Ratio] 27.69 kg/m2 Bill Tuttle MD Work Phone: [facility] 01-30-2024 14:12-0400 Body weight 92.6 kg Bill Tuttle MD Work Phone: [facility] 01-30-2024 14:12-0400 Diastolic blood pressure 80 mm[Hg] Bill Tuttle MD Work Phone: [facility] 01-30-2024 14:12-0400 Heart rate 66 /min Bill Tuttle MD Work Phone: [facility] 01-30-2024 14:12-0400 SaO2% (BldA) [Mass fraction] 97 % Bill Tuttle MD Work Phone: [facility] 01-30-2024 14:12-0400 Systolic blood pressure 148 mm[Hg] Bill Tuttle MD Work Phone: [facility] 01-23-2024 14:01-0400 Body height 182.88 cm MD Sedrick Ye Work Phone: [facility] 01-23-2024 14:01-0400 Body mass index (BMI) [Ratio] 27.5 kg/m2 MD Sedrick Ye Work Phone: [facility] 01-23-2024 14:01-0400 Body temperature 98.4 [degF] MD Sedrick Ye Work Phone: [facility] 01-23-2024 14:01-0400 Body weight 92.07 kg MD Sedrick Ye Work Phone: [facility] 01-23-2024 14:01-0400 Diastolic blood pressure 81 mm[Hg] MD Sedrick Ye Work Phone: [facility] 01-23-2024 14:01-0400 Heart rate 71 /min MD Sedrick Ye Work Phone: [facility] 01-23-2024 14:01-0400 Respiratory rate 20 /min MD Sedrick Ye Work Phone: [facility] 01-23-2024 14:01-0400 SaO2% (BldA) [Mass fraction] 99 % MD Sedrick Ye Work Phone: [facility] 01-23-2024 14:010400 Systolic blood pressure 160 mm[Hg] MD Sedrick Ye Work Phone: [facility] 07-31-2023 13:230500 Body height 182.9 cm Bill Tuttle MD Work Phone: [facility] 07-31-2023 13:23-0500 Body weight 88.91 kg Bill Tuttle MD Work Phone: [facility] 07-31-2023 13:23-0500 Diastolic blood pressure 88 mm[Hg] Bill Tuttle MD Work Phone: [facility] 07-31-2023 13:23-0500 Heart rate 71 /min Bill Tuttle MD Work Phone: [facility] 07-31-2023 13:23-0500 Systolic blood pressure 154 mm[Hg] Bill Tuttle MD Work Phone: [facility] 12-25-2022 14:11-0400 Body height 182.9 cm Bill Tuttle MD Work Phone: [facility] 12-25-2022 14:11-0400 Body weight 90.72 kg Bill Tuttle MD Work Phone: [facility] 12-25-2022 14:11-0400 Diastolic blood pressure 82 mm[Hg] Bill Tuttle MD Work Phone: [facility] 12-25-2022 14:11-0400 Systolic blood pressure 152 mm[Hg] Bill Tuttle MD Work Phone: [facility] 10-17-2022 15:10-0500 Body height 182.9 cm Bill Tuttle MD Work Phone: [facility] 10-17-2022 15:10-0500 Body weight 91.63 kg Bill Tuttle MD Work Phone: [facility] 10-17-2022 15:10-0500 Diastolic blood pressure 88 mm[Hg] Bill Tuttle MD Work Phone: [facility] 10-17-2022 15:10-0500 Heart rate 75 /min Bill Tuttle MD Work Phone: [facility] 10-17-2022 15:10-0500 SaO2% (BldA) [Mass fraction] 98 % Bill Tuttle MD Work Phone: [facility] 10-17-2022 15:10-0500 Systolic blood pressure 148 mm[Hg] Bill Tuttle MD Work Phone: [facility] 09-13-2022 15:12-0500 Body height 182.9 cm Bill Tuttle MD Work Phone: [facility] 09-13-2022 15:12-0500 Body weight 92.53 kg Bill Tuttle MD Work Phone: [facility] 09-13-2022 15:12-0500 Diastolic blood pressure 82 mm[Hg] Bill Tuttle MD Work Phone: [facility] 09-13-2022 15:12-0500 Heart rate 79 /min Bill Tuttle MD Work Phone: [facility] 09-13-2022 15:12-0500 SaO2% (BldA) [Mass fraction] 98 % Bill Tuttle MD Work Phone: [facility] 09-13-2022 15:12-0500 Systolic blood pressure 140 mm[Hg] Bill Tuttle MD Work Phone: [facility] 08-01-2022 13:49-0500 Diastolic blood pressure 95 mm[Hg] Hiren Sena MD Work Phone: [facility] 08-01-2022 13:49-0500 Heart rate 75 /min Hiren Sena MD Work Phone: [facility] 08-01-2022 13:49-0500 SaO2% (BldA) [Mass fraction] 97 % Hiren Sena MD Work Phone: [facility] 08-01-2022 13:49-0500 Systolic blood pressure 149 mm[Hg] Hiren Sena MD Work Phone: [facility] 05-10-2022 15:10-0400 Body weight 89.58 kg Bill Tuttle MD Work Phone: [facility] 05-10-2022 15:10-0400 Diastolic blood pressure 80 mm[Hg] Bill Tuttle MD Work Phone: [facility] 05-10-2022 15:10-0400 Heart rate 72 /min Bill Tuttle MD Work Phone: [facility] 05-10-2022 15:10-0400 SaO2% (BldA) [Mass fraction] 98 % Bill Tuttle MD Work Phone: [facility] 05-10-2022 15:10-0400 Systolic blood pressure 128 mm[Hg] Bill Tuttle MD Work Phone: [facility] 03-28-2022 14:44-0400 Body height 182.9 cm Bill Tuttle MD Work Phone: [facility] 03-28-2022 14:44-0400 Body weight 88.45 kg Bill Tuttle MD Work Phone: [facility] 03-28-2022 14:44-0400 Diastolic blood pressure 82 mm[Hg] Bill Tuttle MD Work Phone: [facility] 03-28-2022 14:44-0400 Heart rate 70 /min Bill Tuttle MD Work Phone: [facility] 03-28-2022 14:44-0400 Respiratory rate 18 /min Bill Tuttle MD Work Phone: [facility] 03-28-2022 14:44-0400 SaO2% (BldA) [Mass fraction] 98 % Bill Tuttle MD Work Phone: [facility] 03-28-2022 14:44-0400 Systolic blood pressure 142 mm[Hg] Bill Tuttle MD Work Phone: [facility] 03-22-2022 10:27-0400 Body height 182.9 cm Barbara Mccloud APRN.MOTION DESIGNER Work Phone: [facility] 03-22-2022 10:27-0400 Body weight 90.72 kg Barbara Rogers BRAIDER SETTER.MOTION DESIGNER Work Phone: [facility] 03-22-2022 10:27-0400 Diastolic blood pressure 86 mm[Hg] Barbara Rogers BRAIDER SETTER.MOTION DESIGNER Work Phone: [facility] 03-22-2022 10:27-0400 Heart rate 56 /min Barbarajesse Mccloud BRAIDER SETTER.MOTION DESIGNER Work Phone: [facility] 03-22-2022 10:27-0400 Systolic blood pressure 147 mm[Hg] Barbara Rogers BRAIDER SETTER.MOTION DESIGNER Work Phone: [facility] 09-12-2021 14:04-0500 Body height 182.88 cm Sedrick Ye Work Phone: [facility] [address] DO Work Phone: 09-12-2021 14:04-0500 Body mass index (BMI) [Ratio] 27.53 kg/m2 Sedrick Ye Work Phone: [facility] [address] DO Work Phone: 09-12-2021 14:04-0500 Body surface area Derived from formula 2.14 m2 Sedrick Ye Work Phone: [facility] [address] DO Work Phone: 09-12-2021 14:04-0500 Body weight 92.08 kg Sedrick Ye Work Phone: [facility] [address] DO Work Phone: 09-12-2021 14:04-0500 Diastolic blood pressure 84 mm[Hg] Sedrick Ye Work Phone: [facility] [address] DO Work Phone: 09-12-2021 14:04-0500 Heart rate 95 /min Sedrick Ye Work Phone: [facility] [address] DO Work Phone: 09-12-2021 14:04-0500 Systolic blood pressure 144 mm[Hg] Sedrick Ye Work Phone: [facility] [address] DO Work Phone: 06-26-2021 13:28-0400 Diastolic blood pressure 88 mm[Hg] Sedrick Ye Work Phone: [facility] [address] DO Work Phone: 06-26-2021 13:28-0400 Systolic blood pressure 138 mm[Hg] Sedrick Ye Work Phone: [facility] [address] DO Work Phone: 06-26-2021 13:06-0400 Body height 182.88 cm Sedrick Ye Work Phone: [facility] [address] DO Work Phone: 06-26-2021 13:06-0400 Body mass index (BMI) [Ratio] 27.94 kg/m2 Sedrick Ye Work Phone: [facility] [address] DO Work Phone: 06-26-2021 13:06-0400 Body surface area Derived from formula 2.16 m2 Sedrick Ye Work Phone: [facility] [address] DO Work Phone: 06-26-2021 13:06-0400 Body weight 93.44 kg Sedrick Ye Work Phone: [facility] [address] DO Work Phone: 06-26-2021 13:06-0400 Diastolic blood pressure 100 mm[Hg] Sedrick Ye Work Phone: [facility] [address] DO Work Phone: 06-26-2021 13:06-0400 Heart rate 92 /min Sedrick Ye Work Phone: [facility] [address] DO Work Phone: 06-26-2021 13:06-0400 Systolic blood pressure 148 mm[Hg] Sedrick Ye Work Phone: [facility] [address] DO Work Phone: Encounters Encounter Date Encounter Type Care Provider Facility Start: 05-27-2025 Registered Recurring Christian Carlos II [facility] Work Phone: Start: 05-27-2025 End: 05-27-2025 ambulatory Linda Hemmer SENIOR MECHANICAL ESTIMATOR-C Work Phone: [facility] Work Phone: Start: 05-27-2025 End: 05-27-2025 Patient encounter procedure Christian Carlos II [facility] Work Phone: Start: 05-26-2025 End: 05-26-2025 Clinisync Result Encounter Generic External Data Provider [facility] External Department Unsolicited Start: 05-26-2025 End: 05-26-2025 Clinisync Result Encounter Generic External Data Provider [facility] External Department Unsolicited Start: 05-19-2025 End: 05-19-2025 Clinisync Result Encounter Generic External Data Provider [facility] External Department Unsolicited Start: 05-19-2025 End: 05-19-2025 Clinisync Result Encounter Generic External Data Provider [facility] External Department Unsolicited Start: 05-16-2025 End: 05-16-2025 Clinisync Result Encounter Generic External Data Provider [facility] External Department Unsolicited Start: 05-16-2025 End: 05-16-2025 Clinisync Result Encounter Generic External Data Provider [facility] External Department Unsolicited Start: 05-13-2025 Registered Recurring Christian Carlos II [facility] Work Phone: Start: 05-13-2025 Non-patient / Non-visit Geena Carlos II [facility] Work Phone: Start: 05-13-2025 End: 05-13-2025 ambulatory Linda Olmedojhonatan SENIOR MECHANICAL ESTIMATOR-C Work Phone: [facility] Work Phone: Start: 05-13-2025 End: 05-13-2025 Patient encounter procedure Gracie Daily SENIOR MECHANICAL ESTIMATOR- [facility] Work Phone: Start: 05-12-2025 End: 05-12-2025 [...] FM Start: 03-04-2025 Registered Recurring Christian Carlos [facility] Work Phone: Start: 03-04-2025 End: 03-04-2025 ambulatory Linda Jansen NP-C Work Phone: [facility] Work Phone: Start: 03-04-2025 End: 03-04-2025 Patient encounter procedure Christian Carlos II [facility] Work Phone: Start: 03-01-2025 End: [...] Start: 02-19-2025 End: 02-19-2025 ambulatory NON STAFF [facility] Work Phone: Start: 02-19-2025 End: 02-19-2025 Patient encounter procedure Hannah Quarles BRAIDER SETTER -[facility] Work Phone: Start: 02-10-2025 End: 02-15-2025 External Result Encounter Christian Carlos DO Work Phone: [facility] External Department Unsolicited Start: 02-10-2025 End: 02-15-2025 External Result Encounter Christian Carlos DO Work Phone: [facility] External Department Unsolicited Start: 02-10-2025 End: 02-10-2025 Admission to same day surgery center Christian Carlos II DO -CT [facility] [place] Work Phone: Start: 02-10-2025 End: 02-10-2025 ambulatory Linda Honoriojhonatan Facility:[facility] Start: 01-21-2025 End: 01-21-2025 ambulatory NON STAFF [facility] Work Phone: Start: 01-21-2025 End: 01-21-2025 [facility] Work [facility]: Start: 01-13-2025 End: [...] 11-30-2024 ambulatory Sedrick Ye MD Work Phone: [facility] Work Phone: Start: 11-30-2024 End: 11-30-2024 Departed Referred Sedrick Ye MD Work Phone: [facility] [address] Work Phone: Start: 11-12-2024 Registered Recurring Sedrick carrillo MD Work Phone: [facility] Work Phone: Start: [...] Start: 09-21-2024 End: 09-21-2024 ambulatory TONY ARMSTRONG Facility:[facility] Start: 09-21-2024 End: 09-21-2024 Patient encounter procedure Tony Herb Armstrong PA-C Work Phone: Cardiology Comment on [...] 08-24-2024 End: 08-24-2024 Patient encounter procedure Eulalio Jojo Mahamed DO Work Phone: [facility] Comment on above: S/P right knee arthr oscopy (Primary Dx) Start: 08-24-2024 End: 08-24-2024 ambulatory EULALIO IRBY Not Available Start: 07-30-2024 End: 07-30-2024 ambulatory EULALIO IRBY Not Available Start: 07-29-2024 End: 07-29-2024 ambulatory EULALIO Uribe MAHAMED Not Available Start: 07-28-2024 End: 07-28-2024 ambulatory [...] Start: 07-24-2024 End: 07-24-2024 ambulatory NON STAFF Facility:[facility] Start: 06-29-2024 End: 06-30-2024 Refill Ita [...] Start: 06-15-2024 End: 06-15-2024 Bamboo flowsheet Eulalio Urbie Mahamed DO Work Phone: [facility] Start: 06-11-2024 End: 06-11-2024 Postop follow up visit related to original px Grace Bucio MD Work Phone: [facility] Comment on above: Screening for malign ant neoplasm of colon (Primary Dx) Start: 06-11-2024 End: 06-11-2024 ambulatory GRACE BUCIO V Not Available Start: 06-10-2024 End: 06-10-2024 Office outpatient visit 25 minutes Sedrick Lyons SENIOR MECHANICAL ESTIMATOR Work Phone: [facility] Comment on above: Strain of thoracic b ack region (Primary Dx); Muscle spasm Start: 06-10-2024 End: 06-10-2024 ambulatory SEDRICK LYONS Not Available Start: 06-10-2024 End: 06-10-2024 Bamboo flowsheet Sedrick Lyons SENIOR MECHANICAL ESTIMATOR Work Phone: [facility] Start: 06-10-2024 End: 06-10-2024 Bamboo flowsheet Sedrick Lyons SENIOR MECHANICAL ESTIMATOR Work Phone: [facility] Start: 05-21-2024 End: 05-21-2024 Office outpatient new 45 minutes Grace Bucio MD Work Phone: [facility] Comment on above: History of colon pro yps (Primary Dx); Screening for malignant neoplasm of colon Start: 05-21-2024 End: 05-21-2024 ambulatory GRACE BUCIO V Not Available Start: 04-23-2024 End: 04-23-2024 ambulatory MD Sedrick Ye Work Phone: [facility] Work Phone: Start: 04-23-2024 End: 04-23-2024 Patient encounter procedure MD Sedrick Ye Work [facility] [place] [facility] Work Phone: Start: 04-23-2024 End: 05-03-2024 External Result Encounter Jose Mariano Sujatha SENIOR MECHANICAL ESTIMATOR Work Phone: [facility] External Department Unsolicited Start: 04-23-2024 End: 05-03-2024 External Result Encounter Jose Solares SENIOR MECHANICAL ESTIMATOR Work Phone: [facility] External Department Unsolicited Start: 04-23-2024 Registered Recurring MD Sedrick [facility]sein [facility] Work [facility]: Start: 04-20-2024 End: 04-20-2024 External Result Encounter Christian Carlos DO Work [...] Start: 01-30-2024 End: 01-30-2024 ambulatory ITA TUTTLE Facility:[facility] Start: 01-23-2024 End: 01-23-2024 ambulatory MD Sedrick Ye Work Phone: [facility] Work Phone: Start: 01-23-2024 End: 01-23-2024 Patient encounter procedure MD Sedrick Ye Work Phone: [facility] Work Phone: Start: 01-23-2024 Registered Recurring MD Sedrick hussein [facility] Work Phone: Start: 12-31-2023 Refill Ita Tuttle MD Work Phone: Cardiology Comment on above: Refill Request Start: 10-03-2023 End: 10-03-2023 ambulatory ITA TUTTLE Facility:[facility] Start: 09-15-2023 Telephone encounter Ita hameed MD Work Phone: Cardiology Start: 07-31-2023 End: 07-31-2023 Patient encounter procedure Ita Tuttle MD Work Phone: Cardiology Comment on above: Hypertension, unspec ified type (Primary Dx); Aortic root dilatation (HCC) Start: 06-02-2023 End: 06-03-2023 ambulatory Iesha Gamino Facility:[facility] Start: 04-14-2023 End: 04-15-2023 ambulatory Iesha Gamino Facility:CD:[id number] Start: 04-09-2023 End: 04-10-2023 ambulatory SEDRICK YE Facility:[facility] Start: 04-01-2023 Refill Britney Gamboa APRN.MOTION DESIGNER, DNP Work Phone: Cardiology Comment on above: Refill Request Start: 02-17-2023 ambulatory Ita Tuttel MD Work Phone: Cardiology Comment on above: [...] Start: 10-17-2022 End: 10-18-2022 ambulatory ITA TUTTLE Facility:[facility] Start: 10-17-2022 End: 10-17-2022 Patient encounter procedure Ita Tuttle MD Work Phone: Cardiology Comment on above: Hypertension, unspec ified type (Primary Dx) Start: 10-16-2022 ambulatory Ita Tuttle MD Work Phone: Cardiology Comment on above: Nifedipine Refill Request Start: 10-13-2022 Refill Britney Gamboa APRN.MOTION DESIGNER, DNP Work Phone: Cardiology Comment on above: [...] Arrhythmia TTM Hiren montanez MD Work Phone: [facility] Department Start: 06-10-2022 Recurring Plan Hiren montanez MD Work Phone: [facility] Start: 05-16-2022 ambulatory Hiren montanez MD Work Phone: Cardiology Comment on above: portable EKG transmi tter machine Start: 05-10-2022 End: 05-10-2022 Patient encounter procedure Ita Tuttle MD Work Phone: Cardiology Comment on above: Tachycardia induced cardiomyopathy (HCC) (Primary Dx) Start: 05-06-2022 Arrhythmia TTM Hiren montanez MD Work Phone: [facility] Start: 05-06-2022 Recurring Plan Hiren montanez MD Work Phone: [facility] Start: 04-22-2022 Arrhythmia TTM Hiren montanez MD Work Phone: [facility] Start: 04-22-2022 Recurring Plan Hiren montanez MD Work Phone: [facility] Start: 04-12-2022 ambulatory Bridget Hudson Pul[facility] Start: 04-03-2022 Arrhythmia TTM Hiren montanez MD Work Phone: [facility] Start: 04-03-2022 Recurring Plan Hiren montanez MD Work Phone: [facility] Start: 04-02-2022 ambulatory Barbara jameson APRN.MOTION DESIGNER Work Phone: Cardiology Comment on above: update on weaning of f Sotalol EKG transmission mac tucker Start: 04-02-2022 E-mail encounter fro m caregiver Barbara Mccloud APRN.MOTION DESIGNER Work Phone: [facility] Start: 03-29-2022 ambulatory Hiren montanez MD Work Phone: [facility] Start: 03-29-2022 Follow-up encounter Hiren willson MD Work Phone: Cardiology Comment on above: Sotalol follow up Start: 03-28-2022 End: 03-28-2022 Patient encounter procedure Ita Tuttle MD Work Phone: Cardiology Comment on above: Atherosclerosis ([place] Dx); Ascending aorta dilatation (HCC); Tachycardia induced cardiomyopathy (HCC) Start: 03-26-2022 ambulatory Bijal Davis am, PA-C Work Phone: Pulmonary Medicine Start: 03-22-2022 ambulatory Barbara jameson BRAIDER SETTER.MOTION DESIGNER Work Phone: Cardiology Comment on above: Ct scan results echo results Start: 03-22-2022 E-mail encounter johnny m caregiver Barbara Rogers M[place].MOTION DESIGNER Work Phone: [facility] Start: 03-22-2022 End: 03-22-2022 Patient encounter procedure Barbara Mccloud APRN.MOTION DESIGNER Work Phone: Cardiology Comment on above: Atrial fibrillation, persistent (HCC) (Primary Dx); Lung nodule; DMITRY (obstructive sleep apnea) Start: 03-22-2022 End: 03-22-2022 Subsequent hospital visit by physician April Li (I-Stat) Work Phone: Radiology Comment on above: Persistent atrial fi brillation (HCC) [I48.19] Start: 03-19-2022 Arrhythmia TTM Hiren montanez MD Work Phone: [facility] Department Start: 03-19-2022 Recurring Plan Hiren montanez MD Work Phone: [facility] Start: 03-13-2022 Arrhythmia TTM Hiren montanez MD Work Phone: [facility] Start: 03-13-2022 Recurring Plan Hiren montanez MD [facility] Phone: [facility] [facility] Start: 03-04-2022 Arrhythmia TTM Hiren montanez MD Work Phone: [facility] Department Start: 03-04-2022 Recurring Plan Hiren montanez MD Work Phone: [facility] Start: 02-18-2022 Arrhythmia TTM Hiren montanez MD Work Phone: [facility] Department Start: 02-18-2022 Recurring Plan Hiren montanez MD Work Phone: [facility] Start: 02-12-2022 Arrhythmia TTM Hiren montanez MD Work Phone: [facility] Department Start: 02-12-2022 Recurring Plan Hiren montanez MD Work Phone: [facility] Start: 02-08-2022 Arrhythmia TTM Hiren montanez MD Work Phone: [facility] Department Start: 02-08-2022 Recurring Plan Hiren montanez MD Work Phone: [facility] Start: 02-04-2022 Arrhythmia TTM Hiren montanez MD Work Phone: [facility] Department Start: 02-04-2022 Recurring Plan Hiren montanez MD Work Phone: [facility] Start: 01-28-2022 Arrhythmia TTM Hiren montanez MD Work Phone: [facility] Department Start: 01-28-2022 Recurring Plan Hiren montanez MD Work Phone: [facility] Start: 01-22-2022 Arrhythmia TTM Hiern montanez MD Work Phone: [facility] Department Start: 01-22-2022 Recurring Plan Hiren montanez MD Work Phone: [facility] Start: 01-18-2022 Arrhythmia TTM Hiren montanez MD Work Phone: [facility] Department Start: 01-18-2022 Recurring Plan Hiren montanez MD Work Phone: [facility] Start: 01-14-2022 Arrhythmia TTM Hiren montanez MD Work Phone: [facility] Department Start: 01-14-2022 Recurring Plan Hiren montanez MD Work Phone: [facility] Start: 01-09-2022 MC Get Medical Advice Ita Tuttle MD Work Phone: Cardiology Comment on above: Mail order doesn t h ave prescriptions Start: 01-07-2022 Arrhythmia TTM Hiren montanez MD Work Phone: [facility] Department Start: 01-07-2022 Recurring Plan Hiren montanez MD Work Phone: [facility] Start: 12-21-2021 Refill Ita Tuttle MD Work Phone: Internal Medicine Comment on above: Refill Request Start: 12-20-2021 Refill Hiren montanez MD Work Phone: Cardiology Comment on above: Refill Request Furosemide needed be fore vacation tomorrow Start: 12-17-2021 Arrhythmia TTM Hiren montanez MD Work Phone: [facility] Department Start: 12-17-2021 Recurring Plan Hiren montanez MD Work Phone: [facility] Start: 12-12-2021 Orders Only Foreign GOMEZ RN.[facility] Work Phone: Cardiology Comment on above: Persistent atrial fi brillation (HCC) Start: 12-11-2021 Arrhythmia TTM Hiren montanez MD Work Phone: [facility] Department Start: 12-11-2021 Recurring Plan Hiren montanez MD Work Phone: [facility] Start: 12-06-2021 ambulatory Hiren montanez MD [...] Arrhythmia TTM Hiren montanez MD Work Phone: [facility] Department Start: 12-04-2021 Recurring Plan Hiren montanez MD Work Phone: [facility] Start: 11-30-2021 ambulatory Hiren montanez MD Work Phone: Cardiology Comment on above: Patient Education (P ) Start: 10-29-2021 Patient encounter procedure Sedrick Ye Work Phone: [facility] [address] DO Work Phone: Start: 09-18-2021 Telephone encounter Sedrick Vela ht Work Phone: [facility] 250 DO Work Phone: Start: 09-12-2021 Patient encounter procedure Sedrick Ye Work Phone: [facility] 250 DO Work Phone: Start: 08-29-2021 Chart Update Sedrick Ye Work Phone: [facility] 250 DO Work Phone: Start: 06-26-2021 Office outpatient vi sit 25 minutes Sedrick Ye Work Phone: [facility] 250 DO Work Phone: Procedures Date Procedure Procedure Detail Performing Clinician Start: 05-26-2025 ALL CBC WITH AUTO DIFF Generic External Data Provider Start: 05-19-2025 ALL CBC WITH AUTO DIFF Generic External Data Provider Start: 05-16-2025 ALL CBC WITH AUTO DIFF Generic External Data Provider Start: 05-13-2025 Antibody screen Linda briones Comment on above: Result Comment: PERF ORMED BY: [facility] [address] [place] [address] PATHOLOGIST LYE BOILER DANIELLE QUINONES M.D. Start: 05-12-2025 Assay of haptoglobin quantitative Christian J Breanna DO Work Phone: Start: 05-12-2025 US scan of spleen Linda Jansen SENIOR MECHANICAL ESTIMATOR-C Work Phone: Start: 05-09-2025 ALL SED RATE [...] 04-23-2024 VITAMIN D 25 HYDROXY,TOT+D2+D3 Jose Solares SENIOR MECHANICAL ESTIMATOR Work Phone: Start: 04-20-2024 Comprehensive metabo lic panel Christian Carlos DO Work Phone: Start: 07-31-2023 Ecg routine ecg w/le ast 12 lds i&r only [facility] Provider Start: 12-27-[address] SEDRICK HUSSEIN . Comment on above: Performed By: #### P [facility] #### [facility] [address] [place] [address] Dr. Gautam Van Start: 08-07-2022 Lipid 1996 panel - S hesham or Plasma Bill Tuttle MD Work Phone: Start: 08-01-2022 Ecg routine ecg w/le ast 12 lds i&r only [facility] Provider Start: 06-10-2022 ARRHYTHMIA TRANS TEL E MEASURE Hiren Sena MD Work Phone: Start: 05-06-2022 ARRHYTHMIA TRANS TEL E MEASURE Hiren Sena MD Work Phone: Start: 04-22-2022 ARRHYTHMIA TRANS TEL E MEASURE Hirne Sena MD Work Phone: Start: 04-03-2022 ARRHYTHMIA TRANS TEL E MEASURE Hiren Sena MD Work Phone: Start: 03-22-2022 Ct heart contrast ev al cardiac structure&morph Foreign Juan BRAIDER SETTER.MOTION DESIGNER Work Phone: Start: 03-22-2022 Creatinine [Mass/vol ume] [...] meehan DO Work Phone: Total colonoscopy Sedrick Vela ht Work Phone: Comment on above: 08/2009; Plan of Treatment Date Care Activity Detail Author Start: 2034 RSV Vaccine (1 - 1-d ose 75+ series) RSV Vaccine (1 - 1-dose 75+ series) [facility] Start: 03-18-2030 Prostate specific an tigen measurement Prostate Cancer Screening Discussion [facility] Start: 10-02-2028 Screening for malign ant neoplasm of colon [facility] Start: 03-18-2028 Diabetes Screening Diabetes Screenin g [facility] Start: 12-28-2027 PROSTATE CANCER SCRE ENING DISCUSSION PROSTATE CANCER SCREENING DISCUSSION [facility] Start: 12-28-2027 Prostate specific an tigen measurement Prostate Cancer Screening Discussion [facility] Start: 08-07-2027 Lipid 1996 panel - S hesham or Plasma Lipid Screening [facility] Start: 08-07-2027 Lipid panel Lipid Screening [facility] Start: 08-07-2027 LIPID SCREEN LIPID SCREEN [facility] Start: 08-07-2027 PROSTATE CANCER SCRE ENING DISCUSSION PROSTATE CANCER SCREENING DISCUSSION [facility] Start: 04-20-2027 Diabetes Screening Diabetes Screenin g [facility] Start: 04-01-2027 LIPID SCREEN LIPID SCREEN [facility] Start: 01-01-2027 PROSTATE CANCER SCRE ENING DISCUSSION PROSTATE CANCER SCREENING DISCUSSION [facility] Start: 04-05-2026 End: 04-05-2026 Patient encounter procedure 04/05/2026 8:00 AM EDT Office Visit Cardiology [address] [place] [phone] [place] [address] [place] [address] yearly follow up Cardiology Comment on above: yearly follow up Start: 03-01-2026 Medicare Annual Well ness (AWV) Medicare Annual Wellness (AWV) [facility] Healthcare Start: 10-17-2025 DIABETES SCREEN DIABETES SCREEN [facility] Start: 10-17-2025 Diabetes Screening Diabetes Screenin g [facility] Start: 08-07-2025 DIABETES SCREEN DIABETES SCREEN [facility] Start: 06-13-2025 End: 06-13-2025 Patient encounter procedure 06/13/2025 10:30 AM EDT Office Visit Cardiology [address] [place], [place] [id number] PAF (paroxysmal atrial fibrillation) (HCC) [I48.0] Cardiology Comment on above: PAF (paroxysmal atri al fibrillation) (HCC) [I48.0] Start: 05-13-2025 [facility] Start: 05-12-2025 [facility] Start: 04-25-2025 Influenza vaccination N [facility] Start: 04-04-2025 End: 04-04-2025 Patient encounter procedure 04/04/2025 2:30 PM EDT Office Visit Cardiology [address] [place] [address] [place] [address] [place] [address] Return in about 6 months (around 03/21/2025) for Please schedule appt with Dr. Tuttle in 6 months. Cardiology Comment on above: Return in about 6 mo nths (around 03/21/2025) for Please schedule appt with Dr. Tuttle in 6 months. Start: 04-01-2025 DIABETES SCREEN DIABETES SCREEN [facility] Start: 03-01-2025 End: 03-01-2025 Patient encounter procedure [facility] Comment on above: Arrived Start: 02-10-2025 [facility] Start: 02-08-2025 End: 02-08-2025 Patient encounter procedure 02/08/2025 4:00 PM EDT Office Visit [facility] [address] [facility] [address] [place] [address] Linda Jansen PA [address] [facility] [address] [place] [address] [facility] Start: 12-09-2024 End: 12-09-2024 Patient encounter procedure 12/09/2024 3:45 PM EDT Office Visit [facility] [address] [place] [address] Eulalio Irby DO [address] [place] [address] Arrived [facility] Comment on above: Arrived Start: 12-03-2024 DIABETES SCREEN DIABETES SCREEN [facility] Start: 10-28-2024 End: 10-28-2024 Patient encounter procedure 10/28/2024 3:45 PM EST Office Visit [facility] [address] [place] [phone] Eulalio Irby DO [address] [place] [address] [facility] Start: 10-22-2024 DIABETES SCREEN DIABETES SCREEN [facility] Start: 09-30-2024 End: 09-30-2024 Patient encounter procedure 09/30/2024 3:30 PM EST Office Visit [facility] [address] [place] [phone] Eullaio Irby DO [address] [place] [address] [facility] Start: 2024 Advance Directive Discussion Advance Directive Discussion [facility] Start: 2024 Pneumococcal Vaccine : 65+ Years (1 of 1 - PCV) Pneumococcal Vaccine: 65+ Years (1 of 1 - PCV) [facility] Start: 08-24-2024 End: 08-24-2024 Patient encounter procedure [facility] Comment on above: Arrived Start: 08-03-2024 End: 07-27-2025 CBC W Auto Differential panel - Blood CBC auto differential Lab Routine Pre-op testing Expected: 08/03/2024 (Approximate), Expires: 07/27/2025 [facility] Work Phone: Comment on above: Expected: 08/03/2024 (Approximate), Expires: 07/27/2025 Start: 08-03-2024 End: 07-27-2025 Comprehensive metabolic 2000 panel - Serum or Plasma Comprehensive metabolic panel Lab Routine Pre-op testing Expected: 08/03/2024 (Approximate), Expires: 07/27/[address] [facility] Healthcare Comment on above: Expected: 08/03/2024 (Approximate), Expires: 07/27/2025 Start: 07-30-2024 End: 07-30-2024 Professional / ancillary services management 07/30/2024 3:30 PM EST Ancillary Procedure [facility] [address] [place] [address] [facility] Start: 07-30-2024 End: 07-30-2024 Patient encounter procedure 07/30/2024 3:00 PM EST Office Visit Cardiology [address] [place] [address] [place] [address] [place] [address] 6 month follow up Cardiology Comment on above: 6 month follow up Start: 07-27-2024 End: 07-27-2024 Patient encounter procedure 07/27/2024 3:30 PM EST Office Visit [facility] [address] [place] [address] Eulalio Irby DO [address] [place] [address] Arrived [facility] Comment on above: Arrived Start: 07-27-2024 End: 07-27-2025 ECG 12 lead ECG 12 lead ECG Routine Pre-op testing Expected: 07/27/2024 (Approximate), Expires: 07/27/[address] [facility] Healthcare Comment on above: Expected: 07/27/2024 [...] EDT Office Visit [facility] [address] [facility] [address] [place] [phone] Grace Bucio MD [address] [place] [address] [facility] Start: 06-10-2024 End: 06-10-2024 Patient encounter procedure 06/10/2024 4:30 PM EDT Office Visit [facility] [address] [place] [address] Sedrick Lyons, SENIOR MECHANICAL ESTIMATOR [address] [place] [address] Arrived [facility] Comment on above: Arrived Start: 06-02-2024 End: 06-02-2024 Patient encounter procedure 06/02/2024 2:30 PM EDT Procedure Visit [facility] Grace Bucio MD [address] [place] [address] [facility] Start: 05-21-2024 End: 05-21-2024 Patient encounter procedure 05/21/2024 12:00 PM EDT Consult [facility] [address] [facility] [address] [place] [phone] Grace Bucio MD [address] [place] [address] [facility] Start: 05-04-2024 End: 05-04-2024 Patient encounter procedure 05/04/2024 3:00 PM EDT Consult [facility] [address] [place] [address] Grace Bucio MD [address] [address] [facility] Start: 04-25-2024 Covid-19 Vaccine ( season) Covid-19 Vaccine () [facility] Start: 04-25-2024 Influenza vaccination C [facility] Start: 01-30-2024 End: 01-30-2024 Patient encounter procedure 01/30/2024 3:00 PM EDT Office Visit Cardiology [address] [place] [address] [place] [address] [place] [address] Return in about 6 months (around 01/30/2024). Cardiology Comment on above: Return in about 6 mo nths (around 01/30/2024). Start: 08-25-2023 Behavioral Health Screening Behavioral Health Screening [facility] Start: 08-25-2023 Depression Assessment Depression Ass essment [facility] Start: 04-25-2023 Covid-19 Vaccine () Covid-19 Vaccine () [facility] Start: 04-25-2023 Influenza vaccination C [facility] Start: 12-20-2022 BP CONTROLLED (<130/80) BP CONTROLLE D (<130/80) [facility] Start: 09-24-2022 BP CONTROLLED (<130/80) BP CONTROLLE D (<130/80) [facility] Start: 08-25-2022 DEPRESSION ASSESSMENT DEPRESSION ASS ESSMENT [facility] Start: 04-25-2022 Influenza vaccination C [facility] Start: 03-28-2022 End: 05-28-2022 Comprehensive metabolic 2000 panel - Serum or Plasma COMP METABOLIC PANEL Lab Routine Atherosclerosis Expected: 03/28/2022, Expires: 05/28/2022 [facility] Work Phone: Comment on above: Expected: 03/28/2022 , Expires: 05/28/2022 Start: 03-28-2022 End: 05-28-2022 Lipid 1996 panel - Serum or Plasma LIPID PANEL BASIC Lab Routine Atherosclerosis Expected: 03/28/2022, Expires: 05/28/2022 [facility] Work Phone: Comment on above: Expected: 03/28/2022 , Expires: 05/28/2022 Start: 03-13-2022 End: 01-11-2023 Ct heart contrast eval cardiac structure&morph CT PULMONARY VEIN W IVCON Radiology Routine Persistent atrial fibrillation (HCC) Expected: 03/13/2022, Expires: 01/11/2023 [facility] Work Phone: Comment on above: Expected: 03/13/2022 , Expires: 01/11/2023 Start: 12-12-2021 End: 12-12-2022 ECG COMPLETE ECG COMPLETE ECG Routine Persistent atrial fibrillation (HCC) Expected: 12/12/2021, Expires: 12/12/2022 [facility] Work Phone: Comment on above: Expected: 12/12/2021 , Expires: 12/12/2022 Start: 11-08-2021 FUV, Provider: Tera Davison, Status: Pen, Time: 3:10 PM FUV, Provider: Tera Davison, Status: Pen, Time: 3:10 PM [facility] 250 DO Work Phone: Start: 09-12-2021 EKG, Provider: STANISLAV RAMIREZ PLANT ATTENDANT 1,[id number], Status: Pen, Time: 1:30 PM EKG, Provider: STANISLAV RAMIREZ PLANT ATTENDANT 1,[id number], Status: Pen, Time: 1:30 PM [facility] 250 DO Work Phone: Start: 08-29-2021 SURGNONUH, Provider: Tera Davison, Status: Pen, Time: 10:00 AM [facility], Provider: Tera Davisno, Status: Pen, Time: 10:00 AM [facility] Work Phone: Start: 08-25-2021 DEPRESSION ASSESSMENT DEPRESSION ASS ESSMENT [facility] Start: 07-25-2021 [facility], Provider: Tera Davison, Status: Pen, Time: 9:00 AM [facility], Provider: Tera Davison, Status: Pen, Time: 9:00 AM [facility] 250 DO Work Phone: Start: 2019 RSV Vaccine (1 - 1-d ose 60+ series) RSV Vaccine (1 - 1-dose 60+ series) [facility] Start: 2014 PROSTATE CANCER SCRE ENING DISCUSSION PROSTATE CANCER SCREENING DISCUSSION [facility] Start: 2009 Pneumococcal Vaccine : 50+ (1 of 1 - PCV) Pneumococcal Vaccine: 50+ (1 of 1 - PCV) [facility] Start: 2009 Pneumococcal Vaccine : 65+ Years (1 of 1 - PCV) Pneumococcal Vaccine: 65+ Years (1 of 1 - PCV) [facility] Start: 2009 SHINGRIX VACCINE (1 of 2) READ GRIX VACCINE (1 of 2) [facility] Start: 2004 COLOGUARD (FIT-DNA) COLOGUARD (FIT-D NA) [facility] Start: 2004 Colonoscopy COLONOSCOPY [facility] Start: 2004 COLORECTAL CANCER SCREENING COLORECTAL CANCER SCREENING [facility] Start: [address] COLONOGRAPHY [facility] Start: 2004 FECAL OCCULT BLOOD FECAL OCCULT BLOO D [facility] Start: 2004 Screening for malign ant neoplasm of colon [facility] Start: 2004 SIGMOIDOSCOPY SIGMOIDOSCOPY [facility] Start: 1994 LIPID SCREEN LIPID SCREEN [facility] Start: 1978 Pneumococcal Vaccine : 65+ Years (1 of 2 - PCV) Pneumococcal Vaccine: 65+ Years (1 of 2 - PCV) [facility] Start: 1978 Urine microalbumin profile [facility] Start: 1977 ANNUAL PCP TEAM PARTY PLANNER ABDIAZIZ DISEASE VISIT ANNUAL PCP TEAM CHRONIC DISEASE VISIT [facility] Start: 1977 Anxiety Screening Anxiety Screening [facility] Start: 1977 BP CONTROLLED (<130/80) BP CONTROLLE D (<130/80) [facility] Start: 1977 Depression Screening Depression Scre ening [facility] Start: 1977 HEPATITIS C SCREENING HEPATITIS C [facility] Start: 1977 Hepatitis C screening Hepatitis C [facility] Start: 1977 HIV SCREENING HIV SCREENING [facility] Start: 1977 HIV screening HIV Screening [facility] Start: 1971 Adult depression screening assessment DEPRESSION SCREENING [facility] Start: 1964 COVID-19 VACCINE (#1) COVID-19 VACCI NE (#1) [facility] Start: 1964 COVID-19 VACCINE (1) COVID-19 VACCIN E (1) [facility] Start: 03-20-1960 COVID-19 VACCINE (#1) COVID-19 VACCI NE (#1) [facility] Start: 1959 Screening for malign ant neoplasm of colon [facility] 25-hydroxyvitamin D3 [Mass/volume] in Serum or Plasma Vitamin D 25 hydroxy Total Lab Routine Wellness examination Muscle cramping Ordered: 03/01/2025 [facility] Comment on above: Ordered: 03/01/2025 Ippo-5-Nhhkobokszrvk [Mass/volume] in Serum or Plasma [facility] Blood type and Indir ect antibody screen panel - Blood [facility] Bone marrow sampling [facility] CBC W Auto Different ial panel - Blood CBC auto differential Lab Routine 04/20/2024 6:07 AM EDT [facility] Work Phone: CBC W Auto Different ial panel - Blood CBC auto differential Lab Routine 01/13/2025 7:10 AM EDT [facility] Work Phone: CBC W Auto Different ial panel - Blood CBC auto differential Lab Routine 02/10/2025 9:15 AM EDT [facility] Work Phone: CBC W Auto Different ial panel - Blood CBC auto differential Lab Routine 05/12/2025 9:36 AM EDT [facility] Work Phone: Comprehensive metabo lic 2000 panel - Serum or Plasma [facility] Comprehensive metabo lic 2000 panel - Serum or Plasma [facility] Comprehensive metabo lic 1999 panel - Serum or Plasma [facility] Comprehensive metabo lic 1999 panel - Serum or Plasma Comprehensive metabolic panel Lab Routine 05/12/2025 9:36 AM EDT [facility] Work Phone: Comprehensive metabo lic 1999 panel - Serum or Plasma [facility] Comprehensive metabo lic 1999 panel - Serum or Plasma [facility] End: 08-01-2023 ECG COMPLETE ECG COMPLETE ECG Routine Atrial fibrillation, persistent (HCC) 1 Occurrences starting 08/01/2022 until 08/01/2023 [facility] Work Phone: Comment on above: 1 Occurrences starti ng 08/01/2022 until 08/01/2023 ECG COMPLETE ECG COMPLETE ECG 08/01/2022 2:00 PM EST [facility] End: 12-12-2022 Echocardiography ECHO Cardiology Routine Persistent atrial fibrillation (HCC) 1 Occurrences starting 12/12/2021 until 12/12/2022 [facility] Work Phone: Comment on above: 1 Occurrences starti ng 12/12/2021 until 12/12/2022 End: 04-04-2026 Echocardiography ECHO Cardiology Routine PAF (paroxysmal atrial fibrillation) (HCC) 1 Occurrences starting 04/04/2025 until 04/04/2026 [facility] Work Phone: Comment on above: 1 Occurrences starti ng 04/04/2025 until 04/04/2026 Ferritin [Mass/volum e] in Serum or Plasma Ferritin Lab Routine 04/23/2024 3:51 PM EDT [facility] FREE K+L LT CHAINS, QN, S FREE K +L LT CHAINS, QN, S Lab Routine 02/10/2025 9:15 AM EDT [facility] Haptoglobin [Mass/vo lume] in Serum or Plasma [facility] Haptoglobin [Mass/vo lume] in Serum or Plasma [facility] Hemoglobin A1c/Hemoglobin.total in Blood Hemoglobin A1c Lab Routine Muscle cramping Wellness examination IFG (impaired fasting glucose) Ordered: 03/01/2025 [facility] Comment on above: Ordered: 03/01/2025 Iron and Iron bindin g capacity panel - Serum or Plasma Iron and TIBC Lab Routine 04/23/2024 3:51 PM EDT [facility] Work Phone: Iron and Iron bindin g capacity panel - Serum or Plasma Iron and TIBC Lab Routine 05/12/2025 9:36 AM EDT [facility] Lipid 1996 panel - S hesham or Plasma Lipid panel Lab Routine Wellness examination Primary hypertension Ordered: 03/01/2025 [facility] Comment on above: Ordered: 03/01/2025 Patient Education [facility] Bone Marrow Aspiration or Biopsy Know your Meds [facility] Work Phone: Patient referral [facility] Work Phone: Prostate specific Ag [Mass/volume] in Serum or Plasma PSA Lab Routine Wellness examination Screening for malignant neoplasm of prostate Ordered: 03/01/2025 [facility] Comment on above: Ordered: 03/01/2025 Protein electrophore sis, serum Protein electrophoresis, serum Lab Routine 02/10/2025 9:15 AM EDT [facility] Work Phone: TSH W/REFLEX TO FT4 TSH W/REFLEX TO FT4 Lab Routine Muscle cramping Wellness examination Ordered: 03/01/2025 [facility] Work Phone: Comment on above: Ordered: 03/01/2025 VIT. B12/FOLATE PROFILE VIT. B12 /FOLATE PROFILE Lab Routine 04/23/2024 3:51 PM EDT [facility] Immunizations Immunization Date Immunization Notes [facility]-20-2022 influenza, injectabl e, quadrivalent, preservative free Christian Carlos DO Work Phone: [facility] 07-20-2022 influenza virus vaccine, unspecified formulation Bill Tuttle MD Work Phone: [facility] 06-10-2019 influenza, injectabl e, quadrivalent, preservative free Sedrick E Ye Work Phone: [facility] 05-25-2019 influenza, seasonal, injectable Sedrick E Ye Work Phone: [facility] 250 DO Work Phone: 06-10-2018 influenza, injectabl e, quadrivalent, preservative free Sedrick E Ye Work Phone: [facility] 01-29-2005 hepatitis B vaccine, adult dosage Sedrick E Ye Work Phone: [facility] 08-28-2004 hepatitis B vaccine, adult dosage Sedrick E Ye Work Phone: [facility] 07-24-2004 hepatitis B vaccine, adult dosage Sedrick E Ye Work Phone: [facility] Payers Date Payer Category Payer Medicare MEDICARE [id number] 2024 Self-pay [id number] 2024 Medicare [id number] 2024 [facility] [id number] 2022 Private Health Insurance [id number] 2020 Unknown 2020 Unknown MMO MMO MHS [id number] 2020-Present [phone] [address] [address] [place] [address] Indemnity [id number] [id number] .7.3.245885.315 2020 Unknown [id number] 2019 Unknown [id number] 1959 Unknown [id number] 2.16.840.1.188955.3.579.2 .593 1959 Unknown [id number] 2.16.840.1.775382.3.579.2 .593 1959 Unknown [id number] 2.16.840.1.521106.3.579.2 .593 1959 Unknown [id number] 2.16.840.1.457049.3.579.2 .593 1959 Unknown [id number] 2.16.840.1.855803.3.579.2 .159 1959 Unknown [id number] 2.16.840.1.727210.3.579.2 .727 1959 Unknown [id number] 2.16.840.1.425715.3.579.2 .727 1959 Unknown [id number] 2.16.840.1.046544.3.579.2 .727 1959 Unknown [id number] 2.16.840.1.980129.3.579.2 .727 1959 Unknown [id number] 2.16.840.1.483180.3.579.2 .1259 1959 Unknown [id number] 2.16.840.1.780093.3.579.2 .1259 1959 Unknown [id number] 2.16.840.1.171363.3.579.2 .9 1959 Unknown [id number] 2.16.840.1.171575.3.579.2 .1258 1959 Unknown [id number] 2.16.840.1.917558.3.579.2 .1258 1959 Unknown [id number] 2.16.840.1.817543.3.579.2 .1258 1959 Unknown [id number] 2.16.840.1.719503.3.579.2 .1258 1959 Unknown [id number] 2.16.840.1.485385.3.579.2 .1258 1959 Unknown [id number] 2.16.840.1.464690.3.579.2 .1258 1959 Unknown [id number] 2.16.840.1.926738.3.579.2 .1258 1959 Unknown [id number] 2.16.840.1.518620.3.579.2 .1258 1959 Unknown [id number] 2.16.840.1.878390.3.579.2 .1258 1959 Unknown [id number] 2.16.840.1.441920.3.579.2 .1258 1959 Unknown [id number] 2.16.840.1.680026.3.579.2 .1258 1959 Unknown [id number] 2.16.840.1.550411.3.579.2 .1258 1959 Unknown [id number] 2.16.840.1.395001.3.579.2 .1258 1959 Unknown [id number] 2.16.840.1.830163.3.579.2 .1258 1959 Unknown [id number] 2.16.840.1.047079.3.579.2 .1258 1959 Self-pay [id number] 1959 Worker's Compensation [id number] Unknown [id number] 2.16.840.1.132136.3.579.2 .593 Unknown [id number] 2.16.840.1.390688.3.579.2 .531 Unknown [id number] 2.16.840.1.819458.3.579.2 .531 Unknown [id number] 2..840.1.501532.3.579.2 .531 Unknown [id number] 2.16.840.1.843356.3.579.2 .531 Social History Date Type Detail Facility Start: 01-17-2023 End: 08-06-2023 Consumes alcohol occasionally Consumes alcohol occasionally [facility] Comment on above: COFFEE ONCE IN A WHI LE; occasionally; Start: 08-27-2021 End: 02-19-2025 Tobacco smoking status NHIS Never smoked tobacco [facility] Start: 1960 Sex Assigned At Not on file C [facility] Start: 11-09-2021 End: 04-05-2022 Exposure to SARS-CoV-2 (event) Not sure [facility] Start: 08-27-2021 End: 08-06-2023 Tobacco use and exposure Smokeless tobacco non-user [facility] Start: 12-03-2021 End: 09-21-2024 Alcohol intake Ex-drinker (finding) [facility] Start: 12-25-2021 End: 01-04-2022 Exposure to SARS-CoV-2 (event) Unable to assess [facility] Work Phone: Start: 01-17-2023 End: 08-06-2023 Tobacco use panel [facility] Start: 06-01-2021 National Score (1-10 0), lower number is lower risk 87 [facility] Start: 1960 Sex Assigned At Male F [facility] Start: 06-09-2024 End: 03-01-2025 Alcoholic beverage intake Current drinker of alcohol (finding) [facility] Within the last year , have you been afraid of your partner or ex-partner? No [facility] Do you belong to any clubs or organizations such as muslim groups, unions, fraternal or athletic groups, or [...] Only a little [facility] (I/We) worried wheneha er (my/our) food would run out before (I/we) got money to buy more. Never true [facility] Start: 08-06-2023 Alcohol Comment Caffeine intak e: 1-2 cups per day [facility] Start: 12-07-2024 End: 01-21-2025 Sex Male (finding) [facility] Functional Status Date Assessment Result Facility 03-01-2025 Patient Health Quest ionnaire 2 item (PHQ-2) [Reported] [facility] 12-04-2021 Are you deaf, or do you have serious difficulty hearing No 12/04/2021 11:08 AM Jose Teixeira RN [facility] 12-04-2021 Are you blind, or do you have serious difficulty seeing, even when wearing glasses No 12/04/2021 11:08 AM Jose Teixeira RN No [facility] 12-04-2021 Do you have serious difficulty walking or climbing stairs No 12/04/2021 11:08 AM Jose Teixeira RN No [facility] 12-04-2021 Do you have difficul ty dressing or bathing No 12/04/2021 11:08 AM Jose Teixeira RN No [facility] 12-04-2021 Because of a physica l, mental, or emotional condition, do you have difficulty doing errands alone such as visiting a physician's office or shopping No 12/04/2021 11:08 AM Jose Teixeira RN No [facility] Mental Status Date Assessment Result Facility 12-04-2021 Because of a physica l, mental, or emotional condition, do you have serious difficulty concentrating, remembering, or making decisions No 12/04/2021 11:08 AM Jose Teixeira, RN No [facility] Clinical Notes 11-30-2021 to 05-13-2025 Note Date & Type Note Facility 05-13-2025 Evaluation note Diagnosis Onset Date Resolution 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 his called us this morning to [...] No Known Allergies Allergy (Verified 02/19/25 09:38) [facility] Medical History Medical History Lymphocytosis Kidney stone March 2023-removed History of torn meniscus of right knee DMITRY on CPAP Problem List clean-up per request of Phys. [facility] A-fib Problem List clean-up per request of Phys. [facility] Hypertension [facility] Surgical History History of surgery on right wrist excision of mass right wrist 07/14/2020 H/O cardiac radiofrequency ablation History of vasectomy Problem List clean-up per request of Phys. [facility] Family History Family History Father Power disease Father Mother Cancer Endometrial Cancer Grandparent Pancreatic cancer Social History Social History (Updated 02/19/25 @ 09:39 by Jose Garcia [facility]) Smoking status: Never smoker Nicotine containing [...] Carlos II, DO DD/ 1557 Signed By: <Electronically signed by Christian Carlos II, DO> 05/06/25 160 [facility] Work Phone: 1(588) 107-856909-12-[address] [facility] [place] [address] Cancer Center Note Signed Patient: Darius Valera MR#: [id number] : 1960 Acct:[id number] Age/Sex: 64 / M Type: MONTY AMB Date of Service: Copies to: Linda Jansen PA-C~ Assessment & Plan CHEMO PLAN No Active Chemotherapy History of Present Illness HPI got labs at [facility]. his called us this morning to [...] No Known Allergies Allergy (Verified 02/19/25 09:38) [facility] Medical History Medical History Lymphocytosis Kidney stone March 2023-removed History of torn meniscus of right knee DMITRY on CPAP Problem List clean-up per request of Phys. [facility] A-fib Problem List clean-up per request of Phys. [facility] Hypertension Problem List clean-up per request of Phys. [facility] Surgical History Surgical History History of surgery on right wrist excision of mass right wrist 07/14/2020 H/O cardiac radiofrequency ablation History of vasectomy Problem List clean-up per request of Phys. [facility] Family History Family History Father Power disease Father Mother Cancer Endometrial Cancer Grandparent [...] DO DD/ 1557 Signed By: 05/06/25 1602 [facility]08-11-2025 History of Present illness Narrative * Ita Tuttle MD - 04/04/2025 2:31 PM EDT Images from the original note were not included. [facility] [place] Sissy Zepeda Department of Cardiovascular Medicine SECTION OF [facility] CARDIOLOGY OUTPATIENT VISIT DATE April 04, [...] male here today for follow up from [place], [place]. Has h/o AF s/p ablation, HTN, DMITRY, tachycardia induced CMP, and CHF. On Eliquis, Nifedipine XL, Valsartan/HCTZ added on Doxazosin. Doxazocin increased to 2 mg but has been using only 1 mg daily. Continue to have BP spikes above 150s. Sotalol was discontinued. He followed before with a local lockstitch lining setter Dr Hooks. Since last visit denies chest [...] rare (<1.0%). Isolated VEs were occasional (1.4%, [id number]), VE Couplets were rare (<1.0%, 56), and VE Triplets were rare (<1.0%, 1). Ventricular Bigeminy and Trigeminy were present. No symptoms reported. ASSESSMENT/PLAN: 1. PAF s/p Ablation 12/03/[address] Dresing, HTN, DMITRY, tachycardia induced CMP with improved fx, CHF,DMITRY, Atherosclerosis with coronary calcification on CT, Aortic root ectasia/dilatation 4.3 cm, CLL. - Patient appears volume compensated on today's exam. - On Valsartan/HCTZ, Nifedipine (did not tolerate higher than 30 mg daily >caused ankle edema), Doxazosin and Bystolic - S/p DCC by his local lockstitch lining setter (Dr Castle) and subsequent ablation by EP (Dr Sena). - Negative outside stress EKG for ischemia 03/22/2020 - Update echo - May use one supplemental Mg OTC daily to try for leg cramps - Most recent renal fx reviewed This note was partially generated using [employer] voice recognition system, and there may be some incorrect words, spellings, and punctuation that were not noted in checking the note before saving. Someelements copied from my previous notes which have been updated as appropriate and reflect current medical decision making from today Bill Tuttle M.D., Miguel CONTACT INFORMATION: Shelbi Tuttle M.D., Miguel. Car Repossessor Clinical color consultant [facility] Staff Polisher Dial Timothy Diaz [facility] Mail Code [id number] [facility] [address] CC: To use this Smartlink, specify the [...] medications for this visit. documented in [facility]Community [facility] Telephone encounter Note * Telephone Encounter - DOROTHEA Liang - 03/17/2025 1:21 PM EDT My Chart Message. [facility] [id number] Miscellaneous Notes* Telephone Encounter - DOROTHEA Liang - 03/17/2025 1:21 PM EDT My Chart Message. documented in this encounterFulton State [id number] History of Present illness Narrative* DOROTHEA Liang [...] Lymphocytosis The patient is seeing a medical equipment technician for this condition, treatment is deferred to that specialist. Correspondence from that specialist and any available testing were reviewed during today's visit. Arteriosclerotic vascular disease The patient is seeing a medical equipment technician for this condition, treatment is deferred [...] thrombophilia (HHS-HCC) The patient is seeing a medical equipment technician for this condition, treatment is deferred to that specialist. Correspondence from that specialist and any available testing were reviewed during today's visit. Thoracic aortic ectasia The patient is seeing a medical equipment technician for this condition, treatment is deferred to that specialist. Correspondence from that specialist and any available testing were reviewed during today's visit. History of colon polyps Will continue to monitor with routine screenings. PONV (postoperative nausea and vomiting) H/o, pt will need to inform anesthesia should he have any additional surgeries. IFG (impaired fasting glucose) - Hemoglobin A1c Will check S4alkpg upcoming fasting labs. Screening for malignant neoplasm of prostate - PSA Will check PSA with upcoming fasting labs. Follow up for Medicare Wellness Visit. documented in this encounterFulton State [id number] Evaluation note* Diagnosis Onset Date Resolution Status Admit Date Contact dermatitis acute January 242024 9:18am [facility] Work Phone: 1(656) 834-827505-12-2025 Telephone encounter Note* Telephone Encounter - Fabiola [...] 04/01/2022 0.98 0.73 - 1.22 mg/dL Final [facility]05-12-2025 Miscellaneous Notes* Telephone Encounter - Fabiola Doty [...] - 1.22 mg/dL Final documented in this encounterCommunity [facility] Center04-17-2025 History of Present illness Narrative* Eulalio Irby, DO - 12/09/2024 3:45 PM EDT Images from the original note were not included. @BrightScope@ [facility] Rl is a 64 y.o. 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 Apply ice to the knee for 20 [...] note was created using voice recognition through [employer]. documented in this encounterFulton State [id number] History of Present illness Narrative* Aracely De León, ARRT - 09/30/2024 3:30 PM ESTAssociated Order(s): L [...] original note were not included. @ROSIE@ Darius Chan Valera is a 64 y.o. male who [...] applying ice to the affected area [facility] after work, which provided relief until the [...] hour before bedtime. He can continue taking [place] if needed, but not at the same [...] note was created using voice recognition through [employer]. documented in this encounterFulton State HospitalDadkktpvec74-54-0399 Telephone encounter Note* Telephone Encounter - Bria [...] 04/01/2022 0.98 0.73 - 1.22 mg/dL Final [facility]02-04-2025 Miscellaneous Notes* Telephone Encounter - Bria Alvarado [...] - 1.22 mg/dL Final documented in this encounterCommunity [facility] Center01-28-2025 Instructions* Patient Instructions* Tony Armstrong PA-C - 09/21/2024 4:57 PM EST Please schedule appt with Dr. Tuttle in 6 months documented in this encounterCommunity [facility] Medical Center01-28-2025 History of Present illness Narrative* Tony Armstrong PA-C - 09/21/2024 4:30 PM EST Images from the original note were not included. [facility] [place] Sissy Zepeda Department of Cardiovascular Medicine SECTION [...] rare (<1.0%). Isolated VEs were occasional (1.4%, 35431), VE Couplets were rare (<1.0%, 56), and VE Triplets were rare (<1.0%, 1). Ventricular Bigeminy and Trigeminy were present. No symptoms reported. 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 Tuttle in 6 months CONTACT INFORMATION: Tony Armstrong PA-C Cardiology [id number] [facility] [address] [place] [address] Dept: [phone] Dept documented in this encounterCommunity Regional Medical Center01-28-2025 NoteHNO ID: [id number] Author: TONY ARMSTRONG PA-C Service: ? Author Type: Physician Car Repossessor Type: Progress Notes Filed: 09/21/2024 17:03 Note Text: [facility] [place] Sissy Zepeda Department of Cardiovascular Medicine SECTION OF CLINICAL CARDIOLOGY OUTPATIENT VISIT DATE September 21, 2024 OUTPATIENT VISIT TYPE ESTABLISHED PRIMARY CARE PHYSICIAN: To use this Smartlink, specify the provider ID whose address you want to display, e.g., .Synterna TechnologiesADDR[1 (where 1 is the provider ID). CHIEF [...] rare (<1.0%). Isolated VEs were occasional (1.4%, 86951), VE Couplets were rare (<1.0%, 56), and VE Triplets were rare (<1.0%, 1). Ventricular Bigeminy and Trigeminy were present. No symptoms reported. 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 Tuttle in 6 months CONTACT INFORMATION: Tony Armstrong PA-C Cardiology [id number] [facility] [address] [facility] [address] Dept: [phone] [facility] History of Present illness Narrative* DOROTHEA [...] No follow-ups on file. documented in this encounterFulton State [id number] History of Present illness Narrative* Eulalio Irby, - 08/24/2024 11:15 AM EST Images from the original note were not included. @ESADATE@ Darius S Rl is a 63 y.o. male who [...] note was created using voice recognition through [employer] artificial [employer]. documented in this encounterFulton State HospitalPcaoenrbmt80-21-0036 History of Present illness Narrative* Eulalio Irby [...] also mentions a recent fall in [facility], where he tripped on a sidewalk and landed on his elbow, shoulder, and knee. Following this incident, he noticed swelling in his hands, which has since improved. He went to the urgent care in [place] for evaluation the following day. Xrays of [...] note was created using voice recognition through [employer]. documented in this encounterFulton State HospitalHjnbcvmein91-59-9660 Telephone encounter Note* Telephone Encounter - Bria [...] 04/01/2022 0.98 0.73 - 1.22 mg/dL Final [facility]11-[facility] Miscellaneous Notes* Telephone Encounter - Bria Alvarado [...] - 1.22 mg/dL Final documented in this encounterCommunity [facility] Medical Center11-05-2024 Telephone encounter Note * Telephone Encounter - DOROTHEA Liang - 06/29/2024 4:06 PM EST My Chart message sent. [facility] [id number] Miscellaneous Notes* Telephone Encounter - DOROTHEA Liang - 06/29/2024 4:06 PM EST My Chart message sent. documented in this encounterFulton State [id number] Telephone encounter Note* Telephone Encounter - DOROTHEA Liang - 06/28/2024 10:41 AM EST Message sent through IVFXPERT [place] [id number] Miscellaneous Notes* Telephone Encounter - DOROTHEA Liang - 06/28/2024 10:41 AM EST Message sent through [employer] * Telephone Encounter - Kayla Rose LPN - 06/25/2024 12:28 PM EDT Attempted to call patient multiple times and call will not go through. Xray order has been sent to [facility] so he can go get that done at his convenience and PT will contact him to schedule. * Telephone Encounter - DOROTHEA Liang - 06/25/2024 12:08 PM EDT Ok to send order for x-rays to [facility]. Please let pt know that x-rays [...] he would like to have done at [facility] if you do order. documented in this encounterFulton State HospitalZcyywyxxuv23-03-2891 Telephone encounter Note* Telephone Encounter - Kayla Rose LPN - 06/25/2024 12:28 PM EDT Attempted to call patient multiple times and call will not go through. Xray order has been sent to [facility] so he can go get that done at his convenience and PT will contact him to schedule. [facility] HospitalLmrofyixku18-99-0705 Telephone encounter Note* Telephone Encounter - DOROTHEA Liang - 06/25/2024 12:08 PM EDT Ok to send order for x-rays to [facility]. Please let pt know that x-rays have been ordered and a PT referral was sent for him also. [facility] [id number] Telephone encounter Note* Telephone Encounter - Kayla Rose LPN - 06/25/2024 11:51 AM EDT Pt called stating he saw Sedrick Lyons on 06/10 and was diagnosed with stain of thoracic spine and muscle spasm, rx'd Prednisone, Tizanidine. States it is not really helping and was ?'ing if you could order either an x-ray or PT. X-ray he would like to have done at [facility] if you do order. [facility] [id number] History of Present illness Narrative* Eulalio Irby, - 06/15/2024 3:15 PM EDT Images from the original note were not included. @ENCDATE@ [facility] Rl is a 63 y.o. [...] MRI of the right knee performed at [facility] on 03/13/2019; Tear in the body and [...] note was created using voice recognition through [employer] artificial intelligence. documented in this encounterFulton State [id number] History of Present illness Narrative* Sedrick Lyons [...] No follow-ups on file. documented in this [facility]10-17-2024 Instructions* Patient Instructions* Sedrick Lyons NP - 06/10/2024 4:30 PM EDT Added prednisone and tizanidine. documented in this [facility]09-27-2024 History of Present illness Narrative* Grace Haque [...] fibrillation (CMS/HCC) COVID-19 08/05/2023 Hydronephrosis 04/14/2023 Hyperlipidemia ([facility]/HCC) Hypertension ([facility]) Kidney stone 04/14/2023 DMITRY (obstructive sleep apnea) [...] colonoscopy in 10 years. documented in this encounterFulton State [id number] NoteHNO ID: [id number] Author: BILL TUTTLE MD Service: ? Author Type: Physician Type: Progress Notes Filed: 01/30/2024 14:47 Note Text: [facility] [place] Sissy Zepeda Department of Cardiovascular Medicine SECTION OF REGIONAL CARDIOLOGY OUTPATIENT VISIT DATE January 30, 2024 OUTPATIENT VISIT TYPE ESTABLISHED HISTORY OF PRESENT ILLNESS: Darius Valera is a (an) 63 year old year old male who is here today for follow-up. He had elevated WBCs and was seen by outside senior environmental technician and was told might have CLL Last [...] male here today for follow up from [place], [place]. Has h/o AF s/p ablation, HTN, DMITRY, tachycardia induced CMP, and CHF. On Eliquis, Nifedipine XL, Valsartan/HCTZ added on Doxazosin. Doxazocin increased to 2 mg but has been using only 1 mg daily. Continue to have BP spikes above 150s. Sotalol was discontinued. He followed before with a local lockstitch lining setter Dr Hooks. Since last visit denies chest [...] Value 04/01/2022 85 No (more content not included)...[facility]06-07-2024 History of Present illness Narrative* Ita Tuttle MD - 01/30/2024 2:08 PM EDT Images from the original note were not included. [facility] [place] Sissy Zepeda Department of Cardiovascular Medicine SECTION OF REGIONAL CARDIOLOGY OUTPATIENT VISIT DATE January 30, 2024 OUTPATIENT VISIT TYPE ESTABLISHED HISTORY OF PRESENT ILLNESS: Darius Valera is a (an) 63 year old year old male who is here today for follow- up. He had elevated WBCs and was seen by outside senior environmental technician and was told might have CLL Last [...] male here today for follow up from [place], [place]. Has h/o AF s/p ablation, HTN, DMITRY, tachycardia induced CMP, and CHF. On Eliquis, Nifedipine XL, Valsartan/HCTZ added on Doxazosin. Doxazocin increased to 2 mg but has been using only 1 mg daily. Continue to have BP spikes above 150s. Sotalol was discontinued. He followed before with a local lockstitch lining setter Dr Hooks. Since last visit denies chest [...] rare (<1.0%). Isolated VEs were occasional (1.4%, [id number]), VE Couplets were rare (<1.0%, 56), and [...] needed - S/p DCC by his local lockstitch lining setter (Dr Castle) and subsequent ablation by EP (Dr Sena). - Negative outside stress EKG for ischemia 03/22/2020 - Refill authorized - Most recent renal fx reviewed This note was partially generated using PayProp voice recognition system, and there may be some incorrect words, spellings, and punctuation that were not noted in checking the note before saving. Someelements copied from my previous notes which have been updated as appropriate and reflect current medical decision making from today Bill Tuttle M.D., Miguel CONTACT INFORMATION: Shelbi Tuttle M.D., Miguel. Car Repossessor Clinical color consultant [facility] Staff Polisher Dial Timothy Hdz [facility] Mail Code AVW2-1 [id number] [facility] [address] CC: To use this Smartlink, specify the provider ID whose address you want to display, e.g., .PROVADDR[1 (where 1 is the provider ID). documented in this encounterCommunity [facility] Center05-08-2024 Telephone encounter Note * Telephone Encounter - [...] 04/01/2022 0.98 0.73 - 1.22 mg/dL Final [facility] Miscellaneous Notes* Telephone Encounter - Fabiola Doty [...] - 1.22 mg/dL Final documented in this encounterCommunity Regional Medical Center02-09-2024 NoteHNO ID: [id number] Author: BILL TUTTLE MD Service: ? Author Type: Physician Type: Progress Notes Filed: 10/03/2023 13:43 Note Text: [facility] [place] Sissy Zepeda Department of Cardiovascular Medicine SECTION [...] male here today for follow up from [place], [place]. Has h/o AF s/p ablation, HTN, DMITRY, tachycardia induced CMP, and CHF. On Eliquis, Nifedipine XL, Valsartan/HCTZ added on Doxazosin. Doxazocin increased to 2 mg but has been using only 1 mg daily. Continue to have BP spikes above 150s. Sotalol was discontinued. He followed before with a local lockstitch lining setter Dr Hooks. Since last visit denies chest [...] (k/uL) Date Value 0 (more content not included)...[facility]01-22-2024 Miscellaneous Notes* Telephone Encounter - Uyen Martinez RN - 09/15/2023 10:37 AM EST Pt sent Nimbuzzhart message regarding below. * Telephone Encounter - [...] Thanks Shelbi Tuttle MD documented in this encounterCommunity Regional Medical Center12-07-2023 History of Present illness Narrative* Ita Tuttle MD - 07/31/2023 12:48 PM EST Images from the original note were not included. [facility] [place] Sissy Zepeda Department of Cardiovascular Medicine SECTION [...] male here today for follow up from [place], [place]. Has h/o AF s/p ablation, HTN, DMITRY, tachycardia induced CMP, and CHF. On Eliquis, Nifedipine XL, Valsartan/HCTZ added on Doxazosin. Doxazocin increased to 2 mg but has been using only 1 mg daily. Continue to have BP spikes above 150s. Sotalol was discontinued. He followed before with a local lockstitch lining setter Dr Hooks. Since last visit denies chest [...] size - S/p DCC by his local lockstitch lining setter (Dr Castle) and subsequent ablation by EP (Dr Sena). - Negative outside stress EKG for ischemia 03/22/2020 - Advised to establish with a PCP at [facility] This note was partially generated using PayProp voice recognition system, and there may be some incorrect words, spellings, and punctuation that were not noted in checking the note before saving. Someelements copied from my previous notes which have been updated as appropriate and reflect current medical decision making from today Bill Tuttle M.D., Miguel CONTACT INFORMATION: Shelbi Tuttle M.D., Miguel. Car Repossessor Clinical color consultant [facility] Staff Polisher Dial Timothy Diaz [facility] Mail Code AVW2-1 [id number] [facility] [place] [address] CC: To use this Smartlink, specify the provider ID whose address you want to display, e.g., .PROVADDR[1 (where 1 is the provider ID). documented in this encounterCommunity Regional Medical Center08-08-2023 Miscellaneous Notes* Telephone Encounter - Griselda Jones [...] - 1.22 mg/dL Final documented in this encounterCommunity Regional Medical Center05-03-2023 History of Present illness Narrative* Ita Tuttle MD - 12/25/2022 2:00 PM EDT Images from the original note were not included. [facility] [place] Sissy Zepeda Department of Cardiovascular Medicine SECTION OF REGIONAL CARDIOLOGY OUTPATIENT VISIT DATE December 25, 2022 OUTPATIENT VISIT TYPE Established HISTORY OF PRESENT ILLNESS: Darius Valera is a 62 year old male here today for follow up from [place], [place]. Has h/o AF s/p ablation, HTN, DMITRY, tachycardia induced CMP, and CHF. On Eliquis, Nifedipine XL, Valsartan/HCTZ added on Doxazosin. Doxazocin increased to 2 mg but has been using only 1 mg daily. Continue to have BP spikes above 150s. Sotalol was discontinued. He followed before with a local lockstitch lining setter Dr Hooks. Since last visit denies chest [...] daily - S/p DCC by his local lockstitch lining setter (Dr Castle) and subsequent ablation by EP [...] needed. This note was partially generated using PayProp voice recognition system, and there may be some incorrect words, spellings, and punctuation that were not noted in checking the note before saving. Bill Tuttle M.D., F.A.C.C CONTACT INFORMATION: Bill Tuttle M.D., F.A.C.C. Staff Polisher Dial Timothy Hdz [facility] Mail Code AVW2-1 [id number] [facility] [place] [address] CC: To use this Smartlink, specify the provider ID whose address you want to display, e.g., .PROVADDR[1 (where 1 is the provider ID). documented in this encounterCommunity Regional Medical Center05-02-2023 NotePROCEDURE: XR FOOT RT MIN 3 VIEWS, [...] Electronically authenticated by: BRIA PATEL Date: 2022-12-24 12:07[facility]05-02-2023 NotePROCEDURE: XR FOOT RT MIN 3 VIEWS, [...] Electronically authenticated by: BRIA PATEL Date: 2022-12-24 12:07[facility]03-08-2023 Miscellaneous Notes* Telephone Encounter - Lila Alvarenga - 10/30/2022 3:09 PM EST Darius rescheduled for [facility] in March with Dr. Sena. 10/30/2022 * Telephone Encounter - Fabiola Sprague - 10/28/2022 1:45 PM EST Patient's spouse returning office call regarding January that was canceled She requested a message to 's office as the next opening was not until Nov and the patient can not wait that long for his follow up. She would like to discuss further what to do and pref only Please advise spouse documented in this encounterCommunity Regional Medical Center02-23-2023 History of Present illness Narrative* Ita Tuttle MD - 10/17/2022 3:30 PM EST Images from the original note were not included. [facility] [place] Sissy Zepeda Department of Cardiovascular Medicine SECTION OF REGIONAL CARDIOLOGY OUTPATIENT VISIT DATE October 17, 2022 OUTPATIENT VISIT TYPE Established HISTORY OF PRESENT ILLNESS: Darius Valera is a 62 year old male here today for follow up from [place], [place]. Has h/o AF s/p ablation, HTN, DMITRY, tachycardia induced CMP, and CHF. On Eliquis, Nifedipine XL, Valsartan/HCTZ added on Doxazosin. Sotalol was discontinued. He followedbefore with a local lockstitch lining setter Dr Hooks. Since last visit denies chest [...] MG - S/p DCC by his local lockstitch lining setter (Dr Castle) and subsequent ablation by EP [...] needed. This note was partially generated using PayProp voice recognition system, and there may be some incorrect words, spellings, and punctuation that were not noted in checking the note before saving. Bill Tuttle M.D., F.A.C.C CONTACT INFORMATION: Bill Tuttle M.D., F.A.C.C. Staff Polisher Dial Timothy Diaz [facility] Mail Code AVW2-1 [id number] [facility] [address] CC: To use this Smartlink, specify the provider ID whose address you want to display, e.g., .PROVADDR[1 (where 1 is the provider ID). documented in this encounterCommunity Regional Medical Center02-23-2023 Miscellaneous Notes* Telephone Encounter - Manisha Pinzon [...] Busby - 10/16/2022 4:19 PM EST Local [facility] 10 day supply Patient has not received it through mail yet, Today was his last pill, is it possible to do a shortterm refill so he does not miss a dose. Has an appointment tomorrow with us but is requesting to have filled tonight. documented in this encounterCommunity Regional Medical Center02-20-2023 Miscellaneous Notes* Telephone Encounter - Marquez Giang [...] - 1.4 mg/dL Final documented in this encounterCommunity Regional Medical Center02-13-2023 Miscellaneous Notes* Telephone Encounter - Virgie Pretty [...] - 1.4 mg/dL Final documented in this encounterCommunity Regional Medical Center01-20-2023 History of Present illness Narrative* Ita Tuttle MD - 09/13/2022 3:30 PM EST Images from the original note were not included. [facility] [place] Sissy Zepeda Department of Cardiovascular Medicine SECTION OF REGIONAL CARDIOLOGY OUTPATIENT VISIT DATE September 13, 2022 OUTPATIENT VISIT TYPE Established HISTORY OF PRESENT ILLNESS: Darius Valera is a 61 year old male here today for follow up from [place], [place]. Has h/o AF s/p ablation, HTN, DMITRY, tachycardia induced CMP, and CHF. On Eliquis, Nifedipine XL, Valsartan/HCTZ. Sotalol was discontinued. He followed before with a local lockstitch lining setter Dr Hooks. Since last visit denies chest [...] or gallop. No parasternal heave or thrill. [place] not displaced. LUNGS: clear to auscultation, no [...] daily - S/p DCC by his local lockstitch lining setter (Dr Castle) and subsequent ablation by EP [...] needed. This note was partially generated using PayProp voice recognition system, and there may be some incorrect words, spellings, and punctuation that were not noted in checking the note before saving. Bill Tuttle M.D., Miguel CONTACT INFORMATION: Bill Tuttle M.D., Miguel. Staff Polisher Dial Timothy Diaz [facility] Mail Code AVW2-[id number] [facility] [place] [address] CC: To use this Smartlink, specify the provider ID whose address you want to display, e.g., .PROVADDR[1 (where 1 is the provider ID). documented in this encounterCommunity Regional Medical Center12-09-2022 Miscellaneous Notes* Telephone Encounter - Shani Abdul [...] a day. Thanks TD documented in this encounterCommunity Regional Medical Center12-09-2022 Miscellaneous Notes* Telephone Encounter - Marissa Guzman [...] a day. Thanks TD documented in this encounterCommunity Regional Medical Center12-08-2022 History of Present illness Narrative* Hiren Sena [...] BP readings, which have frequently been in [id number]. ACTIVE PROBLEM LIST Atrial Fibrillation, Persistent (Hcc) [...] phrases that may beinappropriate. documented in this encounterCommunity Regional Medical Center09-16-2022 History of Present illness Narrative* Ita Tuttle MD - 05/10/2022 3:03 PM EDT Images from the original note were not included. [facility] [place] Sissy Zepeda Department of Cardiovascular Medicine SECTION OF REGIONAL CARDIOLOGY OUTPATIENT VISIT DATE May 10, 2022 OUTPATIENT VISIT TYPE Established HISTORY OF PRESENT ILLNESS: Darius Valera is a 61 year old male here today for follow up from [place], [place]. Has h/o AF s/p ablation, HTN, DMITRY, tachycardia induced CMP, and CHF. On Eliquis, Nifedipine XL, Valsartan/HCTZ, Lasix, Potassium chloride. Sotalol was discontinued. He followed before with a local lockstitch lining setter Dr Hooks. He reported that he was [...] or gallop. No parasternal heave or thrill. [place] not displaced. LUNGS: clear to auscultation, no [...] Nifedipine - S/p DCC by his local lockstitch lining setter (Dr Castle) and subsequent ablation by EP (Dr Dresing). - Negative outside stress EKG for ischemia [...] needed. This note was partially generated using PayProp voice recognition system, and there may be some incorrect words, spellings, and punctuation that were not noted in checking the note before saving. Bill Tuttle M.D., F.Jojo.CCarrieC CONTACT INFORMATION: Bill Tuttle M.D., Moy.Jojo.RodC. Staff Polisher Dial Timothy Diaz [facility] Mail Code AVW2-1 [id number] [facility] [place] [address] CC: To use this Smartlink, specify the provider ID whose address you want to display, e.g., .PROVADDR[1 (where 1 is the provider ID). documented in this encounterCommunity Regional Medical Center08-19-2022 History of Present illness Narrative* Bridget Hudson - 04/12/2022 2:39 PM EDT Waiting for LALO for program status/follow up documented in this encounterCommunity Regional Medical Center08-04-2022 History of Present illness Narrative* Ita Tuttle MD - 03/28/2022 3:00 PM EDT Images from the original note were not included. [facility] Heart [facility] [place] Sissy Zepeda Department of Cardiovascular Medicine SECTION OF REGIONAL CARDIOLOGY OUTPATIENT VISIT DATE March 28, 2022 OUTPATIENT VISIT TYPE Established HISTORY OF PRESENT ILLNESS: Darius Valera is a 61 year old male here today for follow up from [place], [place]. Has h/o AF, HTN, DMITRY, tachycardia induced CMP, and CHF. On Eliquis, Nifedipine XL, Valsartan/HCTZ, Lasix, Potassium chloride, and Sotalol. He followed before with a local lockstitch lining setter Dr Hooks. He reported that he was [...] or gallop. No parasternal heave or thrill. [place] not displaced. LUNGS: clear to auscultation, no [...] Nifedipine - S/p DCC by his local lockstitch lining setter (Dr Castle) and subsequent ablation by EP [...] lipids This note was partially generated using PayProp voice recognition system, and there may be some incorrect words, spellings, and punctuation that were not noted in checking the note before saving. Bill Tuttle M.D., Miguel CONTACT INFORMATION: Bill Tuttle M.D., Miguel. Staff Polisher Dial Timothy Diaz [facility] Mail Code AVW2-1 [id number] [facility] [place] [address] CC: To use this Smartlink, specify the provider ID whose address you want to display, e.g., .PROVADDR[1 (where 1 is the provider ID). documented in this encounterCommunity Regional Medical Center08-02-2022 History of Present illness Narrative* Bijal Jackson PA-C - 03/26/2022 1:40 PM EDT Incidental Lung Nodule Enrollment Call attempt: 1st Attempt Call status: Complete Enrolled in Lung Nodule program: Yes Lung Nodule outreach: Enrolled Lung Nodule Program Location: [place] Patient has already discussed lung nodule with his lockstitch lining setter, who placed a consult to lung nodule clinic. He is scheduled to see Lilo Moody later this month. documented in this encounterCommunity Regional Medical Center07-29-2022 History of Present illness Narrative* Barbara Mccloud APRN.MOTION DESIGNER - 03/22/2022 9:59 AM EDT Images from the original note were not included. [facility] [place] Sissy Zepeda Department of Cardiovascular Medicine SECTION OF CARDIAC PACING and ELECTROPHYSIOLOGY OUTPATIENT VISIT DATE March 22, 2022 OUTPATIENT VISIT TYPE ESTABLISHED CHIEF COMPLAINT: Atrial Fibrillation HISTORY OF PRESENT ILLNESS: Mr. Valera is a 61 year old male who presents today for follow-up visit for atrial fibrillation. Patient is established with Dr. Sena, seen last on 09/27/2021 via virtual visit. [facility] of persistent AF on sotalol and eliquis, [...] INFORMATION: Barbara Mccloud APRN.CNP documented in this encounterCommunity Regional Medical Center07-29-2022 History of Present illness Narrative* Radha Hopkins RT(R) - 03/22/2022 9:15 AM EDT Radiology Service [...] 2022 TIME: 8:50 AM documented in this encounterCommunity Regional Medical Center05-19-2022 Miscellaneous Notes* Telephone Encounter - Britney Gamboa [...] Britney Gamboa APRN.CNP, DNP documented in this encounterCommunity Regional Medical Center04-29-2022 Miscellaneous Notes* Telephone Encounter - Yara Rubin RN - 12/21/2021 4:03 PM EDT Closing encounter see encounter note as below: RX INSTRUCTIONS: Patient aware RX will be sent to pharmacy. No need to notify patient. Alicia Chavarria documented in this [facility]04-29-2022 Miscellaneous Notes* Telephone Encounter - Ran Driver APRN.CNP - 12/21/2021 3:54 PM EDT Prescription refill on December 21, 2021 and routed to pharmacy to be filled Ran Driver APRN.SADI * Telephone Encounter - Virgie Pretty MA [...] notify patient. Alicia Chavarria documented in this encounterCommunity Regional Medical Center04-28-2022 Miscellaneous Notes* Telephone Encounter - Uyen Martinez RN - 12/20/2021 3:45 PM EDT Pt in for office visit with Dr. Tuttle today. Requesting terminal operator refills on all meds from mail away pharmacy, including sotalol. Pt had ablation on 12/03/21. Please sign refill of sotalol if appropriate. Thanks documented in this encounterCommunity Regional Medical Center04-14-2022 Miscellaneous Notes* Telephone Encounter - Uyen Allison RN - 12/06/2021 4:34 PM EDT Completed form given to admin to fax and upload. Uyen Allison RN * Telephone Encounter - Tayla Burrell - 12/06/2021 1:11 PM EDT Received FMLA paper work today and left on nurses desk to complete. I also uploaded documents to [employer] * Telephone Encounter - Elida Abarca - 12/06/2021 10:49 AM EDT Please contact patient regarding MyChart message. documented in this encounterCommunity Regional Medical Center04-13-2022 Miscellaneous Notes* Telephone Encounter [...] not uncommon after the ablation. Per Dr. Snea patient to try Ibuprofen 600 mg TID and if he has no improvement by Friday, to [facility] ED for evaluation. Patient verbalized understanding. I asked him to call the office with any updates. Barbara Mccloud APRN.MOTION DESIGNER documented in this encounterCommunity Regional Medical Center04-13-2022 Miscellaneous Notes* Telephone Encounter - Cammy Fay RN - 12/05/2021 3:55 PM EDT [facility] Center Inbound Phone Encounter DATE of SERVICE: 12/05/2021 TIME of SERVICE: 3:55 PM Status: Non-urgent, needs attention Service/Provider: EP/JAMIE Garvey M.D. Reason for call: Pain Contact information: [phone] Resolution: Sent to InvenQuery Comments: Pt states that he is having pain in his bilat upper chest, I can not even lay down . He is taking tylenol and it is not working. He wants to know if he can take something else? Please callto discuss. Cammy Fay RN Date of Resolution: 12/05/2021 Time of Resolution 3:55 PM documented in this encounterCommunity Regional Medical Center04-13-2022 Miscellaneous Notes* Telephone Encounter - Elida Abarca - 12/05/2021 3:41 PM EDT Please contact patient regarding MyChart message. * Telephone Encounter - DARIO Jose - 12/05/2021 1:49 PM EDT Patients calling. Patients workplace did not receive [place] paperwork & patient is needing a return to work date. Please advise [phone] documented in this encounterCommunity Regional Medical Center04-12-2022 History of Present illness Narrative* Tammy Mendoza - 12/04/2021 11:12 AM EDT TRANSMITTER INSTRUCTIONS Patient Name: Darius Valera [facility] Number: [id number] Fresh battery inserted in monitor Baseline recording not completed Patient instructed 1.) Scheduled and Symptomatic recording instructions 2.) Usage of event button and/or transmission instructions 3.) Maintenance and care of monitor 4.) Landline availability 5.) Return unit at the end of prescribed order 6.) Call with problems [phone] OR [phone] Patient expresses good verbal understanding of instructions Tammy Mendoza documented in this encounterCommunity Regional Medical Center04-08-2022 History of Present illness Narrative* Griselda Felder [...] discussed with Physician, nurse practitioner or Physician client account assistant upon discharge Instructions for transmitting EKG to Monitoring Center 3 month follow up instructions Contact number for information and questions Patient Evaluation: Verbalizes understanding Follow Up Plan: Follow up as directed by MD. Supplemental Material Given: Written Material Patient education regarding radiation exposure. Instructed By Griselda Felder RN, RN. In Department of CARDIOLOGY. [facility]* Diagnosis AF (paroxysmal atrial fibrillation) (HCC)- Primary Atrial fibrillation documented in this encounter [facility] note* Diagnosis Persistent atrial fibrillation (HCC) Atrial fibrillation documented in this encounter [facility] note* Diagnosis Atrial fibrillation, persistent (HCC)- Primary Atrial fibrillation documented in this encounter [facility] note* Diagnosis Atrial fibrillation, persistent (HCC) Atrial fibrillation Benign essential HTN Essential hypertension, benign documented in this encounter [facility] note* Diagnosis Atrial fibrillation, persistent (HCC) Atrial fibrillation Benign essential HTN Essential hypertension, benign Hypertension, unspecified type documented in this encounter [facility] note* Diagnosis Atrial fibrillation, persistent (HCC)- Primary Atrial fibrillation Lung nodule Solitary pulmonary nodule DMITRY (obstructive sleep apnea) Obstructive sleep apnea (adult) (pediatric) documented in this encounter [facility] note* Diagnosis Persistent atrial fibrillation (HCC) Atrial fibrillation documented in this encounter [facility] note* Diagnosis Lung nodule- Primary Solitary pulmonary nodule documented in this encounter [facility] note* Diagnosis Atherosclerosis- Primary Generalized and unspecified atherosclerosis Ascending aorta dilatation (HCC) Thoracic aortic ectasia Tachycardia induced cardiomyopathy (HCC) Tachycardia, unspecified documented in this encounter [facility] note* Diagnosis Tachycardia induced cardiomyopathy (HCC)- Primary Tachycardia, unspecified documented in this encounter [facility] note* Diagnosis Atrial fibrillation, persistent (HCC)- Primary Atrial fibrillation Hypertension, unspecified type DMITRY (obstructive sleep apnea) Obstructive sleep apnea (adult) (pediatric) Benign essential HTN Essential hypertension, benign S/P ablation of atrial fibrillation Other postprocedural status Encounter for current long-term use of anticoagulants Long-term (current) use of anticoagulants documented in this encounter [facility] note* Diagnosis Hypertension, unspecified type- Primary documented in this encounter [facility] note* Diagnosis Hypertension, unspecified type documented in this encounter [facility] note* Diagnosis Medication refill [Z76.0 (ICD-10-CM)]- Primary Issue of repeat prescriptions Hypertension, unspecified type documented in this encounter [facility] note* Diagnosis Hypertension, unspecified type- Primary documented in this encounter [facility] note* Diagnosis Atrial fibrillation, persistent (HCC) Atrial fibrillation Benign essential HTN Essential hypertension, benign documented in this encounter [facility] note* Diagnosis Hypertension, unspecified type- Primary Aortic root dilatation (HCC) Thoracic aortic ectasia documented in this encounter [facility] note* Diagnosis Hypertension, unspecified type [facility]No assessment information [facility] Work Phone: Evaluation note* Diagnosis Paroxysmal atrial fibrillation (HCC)- Primary Atrial fibrillation Atrial fibrillation, persistent (HCC) Atrial fibrillation Benign essential HTN Essential hypertension, benign Hypertension, unspecified type Prescription refill Issue of repeat prescriptions Tachycardia induced cardiomyopathy (HCC) Tachycardia, unspecified Aortic root dilatation (HCC) Thoracic aortic ectasia documented [facility] Diagnosis Onset Date Resolution Status Lymphocytosis acute [facility] Work Phone: Evaluation note* Diagnosis Screening for malignant neoplasm of colon- Primary documented in this encounter [facility]* Diagnosis Tear of medial meniscus of right knee, current, unspecified tear type, subsequent encounter- [facility] Strain of thoracic back region- Primary Muscle spasm Spasm of muscle [facility] Strain of thoracic back region- Primary Muscle spasm Spasm of muscle documented in this encounter [facility]* Diagnosis Pre-op testing Unspecified pre-operative examination [facility] History of colon polyps- Primary Screening for malignant neoplasm of colon [facility] S/P right knee arthroscopy- [facility] Diagnosis Acute non-recurrent maxillary sinusitis- Primary [facility] Primary hypertension- Primary Unspecified essential hypertension PAF (paroxysmal atrial fibrillation) (HCC) Atrial fibrillation Coronary artery calcification Coronary atherosclerosis of unspecified type of vessel, anvik or graft [facility] Diagnosis Prescription refill- Primary Issue of repeat prescriptions [facility] Diagnosis Left hand pain- Primary Pain in soft tissues of limb S/P right knee arthroscopy Right knee pain, unspecified chronicity [facility] S/P right knee arthroscopy- Primary documented in this encounter [facility]* Diagnosis Hypertension, unspecified type [facility] Diagnosis Wellness examination- Primary Muscle cramping [...] neoplasm of prostate documented in this encounter [facility] Healthcare[facility]* Diagnosis PAF (paroxysmal atrial fibrillation) (HCC)- Primary Atrial fibrillation Atrial fibrillation, persistent (HCC) Atrial fibrillation Benign essential HTN Essential hypertension, benign Hypertension, unspecified type Tachycardia induced cardiomyopathy (HCC) Tachycardia, unspecified documented [facility] this encounter [facility]* Here for follow-up [...] 4. Arrangements for cardioversion will be made [facility]-Flaquita Hugo DO Work Phone: History of Present illness [...] 4. Arrangements for cardioversion will be made [facility] Work Phone: History of Present illness [...] 4. Arrangements for cardioversion will be made [facility] Work Phone: History of Present illness [...] [facility]. [facility] Outpatient Procedure (Routine) - Pending Review Specialty Diagnoses / Procedures Referred By Controdolfo t Referred To [facility] Diagnoses Persistent atrial fibrillation (HCC) Procedures ECG COMPLETE ECG ROUTINE ECG W/LEAST 12 LDS W/I&R 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 APRN.MOTION DESIGNER [address] [place] [address] [facility] [place] [address] [place] [address] Referral ID Status Reason Start Date Expiration Date Visits Requested Visits Authorized [id number] Pending Review Auto-Generat ed Referral 12/12/2021 12/12/2022 1 1 * MRI/CT (Routine) - Pending Review Specialty Diagnoses / Procedures Referred By Shima carrillo Referred To Contact CT IMAGING Diagnoses Persistent atrial fibrillation (HCC) Procedures CT PULMONARY VEIN W IVCON CT HEART CONTRAST EVAL CARDIAC STRUCTURE&MORPH 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 APRN.CNP [address] [place] [address] Ct Imaging Referral ID Status Reason Start Date Expiration Date Visits Requested Visits Authorized [id number] Pending Review Auto-Generat ed Referral 03/13/2022 01/11/2023 1 1 * Outpatient Procedure (Routine) - Pending Review Specialty Diagnoses / Procedures Referred By Shima carrillo Referred To Contact [facility] [place] Diagnoses Persistent atrial fibrillation (HCC) Procedures ECHO ECHO TTHRC R-T 2D W/WOM-MODE COMPL SPEC&COLR D 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, MERLY.MOTION DESIGNER [address] [place] [address] Formerly Named [facility] [place] [address] [address] [place] [id number] Referral ID Status Reason Start Date Expiration Date Visits Requested Visits Authorized [id number] Pending Review Auto-Generat ed Referral 12/12/2021 12/12/2022 1 1 [facility] for referral (narrative)* Outpatient Procedure (Routine) - Closed Specialty Diagnoses / Procedures Referred By Renaac gerardo Referred To Contact [facility] [place] Diagnoses Atrial fibrillation, persistent (HCC) Procedures ECG COMPLETE ECG ROUTINE ECG W/LEAST 12 LDS W/I&R Hiren Sena MD [address] [place] [address] Formerly Named [facility] [place] [address] [place] [address] Referral ID Status Reason Start Date Expiration Date V isits Requested Visits Authorized [id number] Closed Auto-Generate d Referral 08/01/2022 08/01/2023 1 1 [facility] for referral (narrative)No reason for referral information [facility] Work Phone: Summary Purpose Family History No [...] Age at Onset Recorded Date/T nalini father Power's disease Unknown father Unknown mother Unknown Malignant neoplasm Unknown grandparent Malignant neoplasm of pancreas Unknown Advance Directives No Advanced Directives Records FoundDocuments on File Type Date Recorded 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 Advance Directive(s) 10/18/2021 4:33 PM Documents on File Type Date Recorded 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 Advance Directive(s) 10/18/2021 4:33 PM [...] Procedures CONSULT TO LUNG NODULE CLINIC OFFICE/OUTPATIENT [facility] 60-74 MINUTES Barbara Mccloud APRN.MOTION DESIGNER [address] [place] [id number] Referral ID Status Reason Start Date Expiration Date Visits Requested Visits Authorized [id number] Pending Review PCP Requested Referral 03/22/2022 03/22/2023 1 1 Specialty Diagnoses / Procedures Referred By Shima carrillo Referred To Contact CT IMAGING Diagnoses Persistent atrial fibrillation (HCC) Procedures CT PULMONARY VEIN W IVCON CT HEART CONTRAST EVAL CARDIAC STRUCTURE&MORPH 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, MERLY.MOTION DESIGNER [address] [place] [address] Ct Imaging Referral ID Status Reason Start Date Expiration Date V isits Requested Visits Authorized [id number] Closed Auto-Generate d Referral 03/13/2022 04/14/2022 1 1 Chief Complaint and Reason for Visit Chief Complaint lymphocytosis NEW - Lymphocytosis Chief Complaint lymphocytosis Follow Up Reason for Visit Lymphocytosis Chief Complaint Admit Date lymphocytosis November 12, 2024 5:5 2am [facility] November 30, 2024 8:00 am Chief Complaint Admit Date [facility] [place] 8th, 2025 8:00 am Follow Up January 21, 2025 [...] 13 9:30am lymphocytosis May 13, 2025 10:09am Chief Complaint Admit Date Follow Up after Biopsy March 04, 2025 2 :47pm moved up triage 05/05May 13 9:24am moved up triage 05/05May 13 9:30am 2 WK Follow Up May 27, 2025 12 :40pm lymphocytosis May 27, 2025 12 :41pm Reason for Visit Admit Date 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 CLL (chronic lymphocytic leukemia) Septe [facility] 2024 9:24am Additional Source Comments (unrecognized sect ion and content) No Status Records FoundNo Status Records FoundNo Status Records FoundNo Status Records FoundNo Status Records FoundNo Status Records FoundNo Status Records FoundNo Status Records FoundNo Status Records FoundNo Status Records FoundNo Status Records Found INFORMATION SOURCE (unrecogn ized section and content) DATE CREATED AUTHOR 05/19/2020 [facility] DATE CREATED AUTHOR AUTHOR'S ORGANIZ ATION 06/27/2021 [employer] DATE CREATED AUTHOR AUTHOR'S ORGANIZ ATION 08/30/2021 [facility] DATE CREATED AUTHOR AUTHOR'S ORGANIZ ATION 10/18/2022 [facility] DATE CREATED AUTHOR AUTHOR'S ORGANIZ ATION 01/31/2023 [facility] DATE CREATED AUTHOR AUTHOR'S ORGANIZ ATION 04/11/2023 [facility] DATE CREATED AUTHOR AUTHOR'S ORGANIZ ATION 01/18/2024 [facility] DATE CREATED AUTHOR AUTHOR'S ORGANIZ ATION 09/23/2024 [facility] DATE CREATED AUTHOR AUTHOR'S ORGANIZ ATION 03/05/2025 [facility] DATE CREATED AUTHOR AUTHOR'S ORGANIZ ATION 03/20/2025 [facility] DATE CREATED AUTHOR AUTHOR'S ORGANIZ ATION 05/30/2025 [facility] Source Comments (unrecognize d section and content) In the event this informatio n is protected by the Federal Confidentiality of Alcohol and Drug Abuse Patient Records regulations: The Federal rules restrict any use of the information to criminally investigate or prosecute any alcohol or drug abuse patient.[facility] Center[facility] the event this information is protected by the Federal Confidentiality of Alcohol and Drug Abuse Patient Records regulations: The Federal rules restrict any use of the information to criminally investigate or prosecute any alcohol or drug abuse patient.[facility] CenterIn the event this information is protected by the Federal Confidentiality of Alcohol and Drug Abuse Patient Records regulations: The Federal rules restrict any use of the information to criminally investigate or prosecute any alcohol or drug abuse patient.[facility] CenterIn the event this information is protected by the Federal Confidentiality of Alcohol and Drug Abuse Patient Records regulations: The Federal rules restrict any use of the information to criminally investigate or prosecute any alcohol or drug abuse patient.[facility] CenterIn the event this information is protected by the Federal Confidentiality of Alcohol and Drug Abuse Patient Records regulations: The Federal rules restrict any use of the information to criminally investigate or prosecute any alcohol or drug abuse patient.[facility] CenterIn the event this information is protected by the Federal Confidentiality of Alcohol and Drug Abuse Patient Records regulations: The Federal rules restrict any use of the information to criminally investigate or prosecute any alcohol or drug abuse patient.[facility] CenterIn the event this information is protected by the Federal Confidentiality of Alcohol and Drug Abuse Patient Records regulations: The Federal rules restrict any use of the information to criminally investigate or prosecute any alcohol or drug abuse patient.[facility] CenterIn the event this information is protected by the Federal Confidentiality of Alcohol and Drug Abuse Patient Records regulations: The Federal rules restrict any use of the information to criminally investigate or prosecute any alcohol or drug abuse patient.[facility] CenterIn the event this information is protected by the Federal Confidentiality of Alcohol and Drug Abuse Patient Records regulations: The Federal rules restrict any use of the information to criminally investigate or prosecute any alcohol or drug abuse patient.[facility] CenterIn the event this information is protected by the Federal Confidentiality of Alcohol and Drug Abuse Patient Records regulations: The Federal rules restrict any use of the information to criminally investigate or prosecute any alcohol or drug abuse patient.[facility] CenterIn the event this information is protected by the Federal Confidentiality of Alcohol and Drug Abuse Patient Records regulations: The Federal rules restrict any use of the information to criminally investigate or prosecute any alcohol or drug abuse patient.[facility] CenterIn the event this information is protected by the Federal Confidentiality of Alcohol and Drug Abuse Patient Records regulations: The Federal rules restrict any use of the information to criminally investigate or prosecute any alcohol or drug abuse patient.[facility] CenterIn the event this information is protected by the Federal Confidentiality of Alcohol and Drug Abuse Patient Records regulations: The Federal rules restrict any use of the information to criminally investigate or prosecute any alcohol or drug abuse patient.[facility] CenterIn the event this information is protected by the Federal Confidentiality of Alcohol and Drug Abuse Patient Records regulations: The Federal rules restrict any use of the information to criminally investigate or prosecute any alcohol or drug abuse patient.[facility] CenterIn the event this information is protected by the Federal Confidentiality of Alcohol and Drug Abuse Patient Records regulations: The Federal rules restrict any use of the information to criminally investigate or prosecute any alcohol or drug abuse patient.[facility] CenterIn the event this information is protected by the Federal Confidentiality of Alcohol and Drug Abuse Patient Records regulations: The Federal rules restrict any use of the information to criminally investigate or prosecute any alcohol or drug abuse patient.[facility] CenterIn the event this information is protected by the Federal Confidentiality of Alcohol and Drug Abuse Patient Records regulations: The Federal rules restrict any use of the information to criminally investigate or prosecute any alcohol or drug abuse patient.[facility] CenterIn the event this information is protected by the Federal Confidentiality of Alcohol and Drug Abuse Patient Records regulations: The Federal rules restrict any use of the information to criminally investigate or prosecute any alcohol or drug abuse patient.[facility] CenterIn the event this information is protected by the Federal Confidentiality of Alcohol and Drug Abuse Patient Records regulations: The Federal rules restrict any use of the information to criminally investigate or prosecute any alcohol or drug abuse patient.[facility] CenterIn the event this information is protected by the Federal Confidentiality of Alcohol and Drug Abuse Patient Records regulations: The Federal rules restrict any use of the information to criminally investigate or prosecute any alcohol or drug abuse patient.[facility] CenterIn the event this information is protected by the Federal Confidentiality of Alcohol and Drug Abuse Patient Records regulations: The Federal rules restrict any use of the information to criminally investigate or prosecute any alcohol or drug abuse patient.[facility] CenterIn the event this information is protected by the Federal Confidentiality of Alcohol and Drug Abuse Patient Records regulations: The Federal rules restrict any use of the information to criminally investigate or prosecute any alcohol or drug abuse patient.[facility] CenterIn the event this information is protected by the Federal Confidentiality of Alcohol and Drug Abuse Patient Records regulations: The Federal rules restrict any use of the information to criminally investigate or prosecute any alcohol or drug abuse patient.[facility] CenterIn the event this information is protected by the Federal Confidentiality of Alcohol and Drug Abuse Patient Records regulations: The Federal rules restrict any use of the information to criminally investigate or prosecute any alcohol or drug abuse patient.[facility] CenterIn the event this information is protected by the Federal Confidentiality of Alcohol and Drug Abuse Patient Records regulations: The Federal rules restrict any use of the information to criminally investigate or prosecute any alcohol or drug abuse patient.[facility] CenterIn the event this information is protected by the Federal Confidentiality of Alcohol and Drug Abuse Patient Records regulations: The Federal rules restrict any use of the information to criminally investigate or prosecute any alcohol or drug abuse patient.[facility] CenterIn the event this information is protected by the Federal Confidentiality of Alcohol and Drug Abuse Patient Records regulations: The Federal rules restrict any use of the information to criminally investigate or prosecute any alcohol or drug abuse patient.[facility] CenterIn the event this information is protected by the Federal Confidentiality of Alcohol and Drug Abuse Patient Records regulations: The Federal rules restrict any use of the information to criminally investigate or prosecute any alcohol or drug abuse patient.[facility] CenterIn the event this information is protected by the Federal Confidentiality of Alcohol and Drug Abuse Patient Records regulations: The Federal rules restrict any use of the information to criminally investigate or prosecute any alcohol or drug abuse patient.[facility] CenterIn the event this information is protected by the Federal Confidentiality of Alcohol and Drug Abuse Patient Records regulations: The Federal rules restrict any use of the information to criminally investigate or prosecute any alcohol or drug abuse patient.[facility] CenterIn the event this information is protected by the Federal Confidentiality of Alcohol and Drug Abuse Patient Records regulations: The Federal rules restrict any use of the information to criminally investigate or prosecute any alcohol or drug abuse patient.[facility] CenterIn the event this information is protected by the Federal Confidentiality of Alcohol and Drug Abuse Patient Records regulations: The Federal rules restrict any use of the information to criminally investigate or prosecute any alcohol or drug abuse patient.[facility] CenterIn the event this information is protected by the Federal Confidentiality of Alcohol and Drug Abuse Patient Records regulations: The Federal rules restrict any use of the information to criminally investigate or prosecute any alcohol or drug abuse patient.[facility] CenterIn the event this information is protected by the Federal Confidentiality of Alcohol and Drug Abuse Patient Records regulations: The Federal rules restrict any use of the information to criminally investigate or prosecute any alcohol or drug abuse patient.[facility] CenterIn the event this information is protected by the Federal Confidentiality of Alcohol and Drug Abuse Patient Records regulations: The Federal rules restrict any use of the information to criminally investigate or prosecute any alcohol or drug abuse patient.[facility] CenterIn the event this information is protected by the Federal Confidentiality of Alcohol and Drug Abuse Patient Records regulations: The Federal rules restrict any use of the information to criminally investigate or prosecute any alcohol or drug abuse patient.[facility] CenterIn the event this information is protected by the Federal Confidentiality of Alcohol and Drug Abuse Patient Records regulations: The Federal rules restrict any use of the information to criminally investigate or prosecute any alcohol or drug abuse patient.[facility] CenterIn the event this information is protected by the Federal Confidentiality of Alcohol and Drug Abuse Patient Records regulations: The Federal rules restrict any use of the information to criminally investigate or prosecute any alcohol or drug abuse patient.[facility] CenterIn the event this information is protected by the Federal Confidentiality of Alcohol and Drug Abuse Patient Records regulations: The Federal rules restrict any use of the information to criminally investigate or prosecute any alcohol or drug abuse patient.[facility] CenterIn the event this information is protected by the Federal Confidentiality of Alcohol and Drug Abuse Patient Records regulations: The Federal rules restrict any use of the information to criminally investigate or prosecute any alcohol or drug abuse patient.[facility] CenterIn the event this information is protected by the Federal Confidentiality of Alcohol and Drug Abuse Patient Records regulations: The Federal rules restrict any use of the information to criminally investigate or prosecute any alcohol or drug abuse patient.[facility] CenterIn the event this information is protected by the Federal Confidentiality of Alcohol and Drug Abuse Patient Records regulations: The Federal rules restrict any use of the information to criminally investigate or prosecute any alcohol or drug abuse patient.[facility] CenterIn the event this information is protected by the Federal Confidentiality of Alcohol and Drug Abuse Patient Records regulations: The Federal rules restrict any use of the information to criminally investigate or prosecute any alcohol or drug abuse patient.[facility] CenterIn the event this information is protected by the Federal Confidentiality of Alcohol and Drug Abuse Patient Records regulations: The Federal rules restrict any use of the information to criminally investigate or prosecute any alcohol or drug abuse patient.[facility] CenterIn the event this information is protected by the Federal Confidentiality of Alcohol and Drug Abuse Patient Records regulations: The Federal rules restrict any use of the information to criminally investigate or prosecute any alcohol or drug abuse patient.[facility] CenterIn the event this information is protected by the Federal Confidentiality of Alcohol and Drug Abuse Patient Records regulations: The Federal rules restrict any use of the information to criminally investigate or prosecute any alcohol or drug abuse patient.[facility] CenterIn the event this information is protected by the Federal Confidentiality of Alcohol and Drug Abuse Patient Records regulations: The Federal rules restrict any use of the information to criminally investigate or prosecute any alcohol or drug abuse patient.[facility] CenterIn the event this information is protected by the Federal Confidentiality of Alcohol and Drug Abuse Patient Records regulations: The Federal rules restrict any use of the information to criminally investigate or prosecute any alcohol or drug abuse patient.[facility] CenterIn the event this information is protected by the Federal Confidentiality of Alcohol and Drug Abuse Patient Records regulations: The Federal rules restrict any use of the information to criminally investigate or prosecute any alcohol or drug abuse patient.[facility] CenterIn the event this information is protected by the Federal Confidentiality of Alcohol and Drug Abuse Patient Records regulations: The Federal rules restrict any use of the information to criminally investigate or prosecute any alcohol or drug abuse patient.[facility] CenterIn the event this information is protected by the Federal Confidentiality of Alcohol and Drug Abuse Patient Records regulations: The Federal rules restrict any use of the information to criminally investigate or prosecute any alcohol or drug abuse patient.[facility] CenterIn the event this information is protected by the Federal Confidentiality of Alcohol and Drug Abuse Patient Records regulations: The Federal rules restrict any use of the information to criminally investigate or prosecute any alcohol or drug abuse patient.[facility] CenterIn the event this information is protected by the Federal Confidentiality of Alcohol and Drug Abuse Patient Records regulations: The Federal rules restrict any use of the information to criminally investigate or prosecute any alcohol or drug abuse patient.[facility] CenterIn the event this information is protected by the Federal Confidentiality of Alcohol and Drug Abuse Patient Records regulations: The Federal rules restrict any use of the information to criminally investigate or prosecute any alcohol or drug abuse patient.[facility] CenterIn the event this information is protected by the Federal Confidentiality of Alcohol and Drug Abuse Patient Records regulations: The Federal rules restrict any use of the information to criminally investigate or prosecute any alcohol or drug abuse patient.[facility] CenterIn the event this information is protected by the Federal Confidentiality of Alcohol and Drug Abuse Patient Records regulations: The Federal rules restrict any use of the information to criminally investigate or prosecute any alcohol or drug abuse patient.[facility] CenterIn the event this information is protected by the Federal Confidentiality of Alcohol and Drug Abuse Patient Records regulations: The Federal rules restrict any use of the information to criminally investigate or prosecute any alcohol or drug abuse patient.[facility] CenterIn the event this information is protected by the Federal Confidentiality of Alcohol and Drug Abuse Patient Records regulations: The Federal rules restrict any use of the information to criminally investigate or prosecute any alcohol or drug abuse patient.[facility] CenterIn the event this information is protected by the Federal Confidentiality of Alcohol and Drug Abuse Patient Records regulations: The Federal rules restrict any use of the information to criminally investigate or prosecute any alcohol or drug abuse patient.[facility] CenterIn the event this information is protected by the Federal Confidentiality of Alcohol and Drug Abuse Patient Records regulations: The Federal rules restrict any use of the information to criminally investigate or prosecute any alcohol or drug abuse patient.[facility] CenterIn the event this information is protected by the Federal Confidentiality of Alcohol and Drug Abuse Patient Records regulations: The Federal rules restrict any use of the information to criminally investigate or prosecute any alcohol or drug abuse patient.[facility] CenterIn the event this information is protected by the Federal Confidentiality of Alcohol and Drug Abuse Patient Records regulations: The Federal rules restrict any use of the information to criminally investigate or prosecute any alcohol or drug abuse patient.[facility] CenterIn the event this information is protected by the Federal Confidentiality of Alcohol and Drug Abuse Patient Records regulations: The Federal rules restrict any use of the information to criminally investigate or prosecute any alcohol or drug abuse patient.[facility] CenterIn the event this information is protected by the Federal Confidentiality of Alcohol and Drug Abuse Patient Records regulations: The Federal rules restrict any use of the information to criminally investigate or prosecute any alcohol or drug abuse patient.[facility] CenterIn the event this information is protected by the Federal Confidentiality of Alcohol and Drug Abuse Patient Records regulations: The Federal rules restrict any use of the information to criminally investigate or prosecute any alcohol or drug abuse patient.[facility] CenterIn the event this information is protected by the Federal Confidentiality of Alcohol and Drug Abuse Patient Records regulations: The Federal rules restrict any use of the information to criminally investigate or prosecute any alcohol or drug abuse patient.[facility] CenterIn the event this information is protected by the Federal Confidentiality of Alcohol and Drug Abuse Patient Records regulations: The Federal rules restrict any use of the information to criminally investigate or prosecute any alcohol or drug abuse patient.[facility] Reason for Visit (unrecogniz ed section and [...] IVCON CT HEART CONTRAST EVAL CARDIAC STRUCTURE&MORPH Juan, Foreign, 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 [address] [place] [address] Grace Bucio MD [address] [place] [address] Referral ID Status Reason Start Date Expiration Date V isits Requested Visits Authorized [id number] Closed Specialty Services Required 02/09/2024 08/07/2024 1 1 Reason Comments Knee Pain Post-op Reason Comments Knee Pain Post-op Pain Reason Comments Pain Reason Onset Date Comments Refill Request 01/01/2025 Care Teams (unrecognized sec tion and content) Gold Leaf Laborer Relationship Specialty [place] [address] [place] [address] Primary Staff Physician Cardiology 03/22/22 Gold Leaf Laborer Relationship Specialty [place] [address] [place] [address] Primary Staff Physician Cardiology 03/22/22 Gold Leaf Laborer Relationship Specialty [place] [address] [place] [address] Primary Staff Physician Cardiology 03/22/22 Gold Leaf Laborer Relationship Specialty Start Date End Date Ita Tuttle MD [address] [place] [address] Primary Staff Physician Cardiology 03/22/22 Gold Leaf Laborer Relationship Specialty Start Date End Date Ita Tuttle MD [address] [place] [address] Primary Staff Physician Cardiology 03/22/22 Gold Leaf Laborer Relationship Specialty Start Date End Date Ita Tuttle MD [address] [place] [address] Primary Staff Physician Cardiology 03/22/22 Gold Leaf Laborer Relationship Specialty Start Date End Date Ita Tuttle MD [address] [place] [address] Primary Staff Physician Cardiology 03/22/22 Gold Leaf Laborer Relationship Specialty Start Date End Date Ita Tuttle MD [address] [place] [address] Primary Staff Physician Cardiology 03/22/22 Gold Leaf Laborer Relationship Specialty Start Date End Date Ita Tuttle MD [address] [place] [address] Primary Staff Physician Cardiology 03/22/22 Gold Leaf Laborer Relationship Specialty Start Date End Date Ita Tuttle MD [address] [place] [address] Primary Staff Physician Cardiology 03/22/22 Gold Leaf Laborer Relationship Specialty Start Date End Date Ita Tuttle MD [address] [place] [address] Primary Staff Physician Cardiology 03/22/22 Gold Leaf Laborer Relationship Specialty Start Date End Date Watt[place], [place] [address] [facility] [place] [address] Primary Staff Physician Cardiology 03/22/22 Gold Leaf Laborer Relationship Specialty [place] [address] [facility] [place] [address] Primary Staff Physician Cardiology 03/22/22 Gold Leaf Laborer Relationship Specialty [place] [address] [facility] [place] [address] Primary Staff Physician Cardiology 03/22/22 Gold Leaf Laborer Relationship Specialty [place] [address] [facility] [place] [address] Primary Staff Physician Cardiology 03/22/22 Gold Leaf Laborer Relationship Specialty [place] [address] [facility] [place] [address] Primary Staff Physician Cardiology 03/22/22 Gold Leaf Laborer Relationship Specialty [place] [address] [facility] [place] [address] Primary Staff Physician Cardiology 03/22/22 Gold Leaf Laborer Relationship Specialty [place] [address] [facility] [place] [address] Primary Staff Physician Cardiology 03/22/22 Team Status: [...] January 23, 2024 End: January 23, 2024 Gold Leaf Laborer Relationship Specialty [place] [address] [place] [address] Primary Staff Physician Cardiology 03/22/22 Gold Leaf Laborer Relationship Specialty [place] [address] [place] [address] Primary Staff Physician Cardiology 03/22/22 Team Status: Active Member Role Status Dates Sedrick Ye MD Primary Care Provider Active S tart: April 23, 2024 Christian Carlos II, DO Attending Provider Active Start: April 23, 2024 [facility] [place] Referring Provider Active St art: April 23, 2024 Team Status: Inactive Member Role Status Dates Patria Demboske , MERLY Attending Provider Acti ve Start: April 23, 2024 End: April 23, 2024 Gold Leaf Laborer Relationship Specialty Start Date End Date Linda Jansen PA [address] [facility] [address] [place] [address] PCP - General Family Medicine 08/06/23 Linda Jansen PA [address] [facility] [address] [place] [address] PCP - Medical [employer] 02/22/23 08/24/99 Gold Leaf Laborer Relationship Specialty Start Date End Date Linda Jansen PA [address] [facility] [address] [place] [address] PCP - General Family Medicine 08/06/23 Linda Jansen PA [address] [facility] [address] [place] [address] PCP - Medical [employer] 02/22/23 08/24/99 Gold Leaf Laborer Relationship Specialty Start Date End Date Linda Jansen PA [address] [facility] [address] [place] [address] PCP - General Family Medicine 08/06/23 Linda Jansen PA [address] [facility] [address] [place] [address] PCP - Medical [employer] 02/22/23 08/24/99 Gold Leaf Laborer Relationship Specialty Start Date End Date Linda Jansen PA [address] [facility] [address] [place] [address] PCP - General Family Medicine 08/06/23 Linda Jansen PA [address] [facility] [address] [place] [address] PCP - Medical [employer] 02/22/23 08/24/99 Gold Leaf Laborer Relationship Specialty Start Date End Date Linda Jansen PA [address] [facility] [address] [place] [address] PCP - General Family Medicine 08/06/23 Linda Jansen PA [address] [facility] [address] [place] [address] PCP - Medical [employer] 02/22/23 08/24/99 Gold Leaf Laborer Relationship Specialty Start Date End Date Linda Jansen PA [address] [facility] [address] [place] [address] PCP - General Family Medicine 08/06/23 Linda Jansen PA [address] [facility] [address] [place] [address] PCP - Medical [employer] 02/22/23 08/24/99 Gold Leaf Laborer Relationship Specialty [place] [address] [place] [address] Primary Staff Physician Cardiology 03/22/22 Gold Leaf Laborer Relationship Specialty Start Date End Date Linda Jansen PA [address] [facility] [address] [place] [address] PCP - General Family Medicine 08/06/23 Linda Jansen PA [address] [facility] [address] [place] [address] PCP - Medical [employer] 02/22/23 08/24/99 Gold Leaf Laborer Relationship Specialty Start Date End Date Linda Jansen PA [address] [facility] [address] [place] [address] PCP - General Family Medicine 08/06/23 Gold Leaf Laborer Relationship Specialty Start Date End Date Linda Jansen PA [address] [facility] [address] [place] [address] PCP - General Family Medicine 08/06/23 Gold Leaf Laborer Relationship Specialty Start Date End Date Linda Jansen PA [address] [facility] [address] [place] [address] PCP - General Family Medicine 08/06/23 Gold Leaf Laborer Relationship Specialty Start Date End Date Linda Jansen PA [address] [facility] [address] [place] [address] PCP - General Family Medicine 08/06/23 Linda Jansen PA [address] [facility] [address] [place] [address] PCP - Medical [employer] 02/22/23 08/24/99 Gold Leaf Laborer Relationship Specialty [place] [address] [place] [address] Primary Staff Physician Cardiology 03/22/22 Gold Leaf Laborer Relationship Specialty Start Date End Date Linda Jansen PA [address] [facility] [address] [place] [address] PCP - General Family Medicine 08/06/23 Linda Jansen PA [address] [facility] [address] [place] [address] PCP - Medical [employer] 02/22/23 08/24/99 Team Status: Active Member Role Status Dates NON STAFF Primary Care Provider Active Team Status: Active Member Role Status Dates Sedrick Ye MD Primary Care Provider Active S tart: November 12, 2024 Christian Carlos II, DO Attending Provider Active Start: November 12, 2024 Linda Jansen , SENIOR MECHANICAL ESTIMATOR-C Referring Provider Active St art: November 12, 2024 Team Status: Inactive Member Role Status Dates NON STAFF Primary Care Provider Active Start: November 30, 2024 End: November 30, 2024 Russell BALDWIN DO [facility] Attending Provider Active Start: November 30, 2024 End: November 30, 2024 Gold Leaf Laborer Relationship Specialty [place] [address] [place] [address] Primary Staff Physician Cardiology 03/22/22 Gold Leaf Laborer Relationship Specialty Start Date End Date Linda Jansen PA [address] [facility] [address] [place] [address] PCP - General Family Medicine 08/06/23 Linda Jansen PA [address] [facility] [address] [place] [address] PCP - Medical [employer] 02/22/23 08/24/99 Gold Leaf Laborer Relationship Specialty Start Date End Date Linda Jansen PA [address] [facility] [address] [place] [address] PCP - General Family Medicine 08/06/23 Linda Jansen PA [address] [facility] [address] [place] [address] PCP - Medical [employer] 02/22/23 08/24/99 Team Status: Active Member [...] February 19, 2025 End: February 19, 2025 Gold Leaf Laborer Relationship Specialty Start Date End Date Linda Jansen PA [address] [facility] [address] [place] [address] PCP - General Family Medicine 08/06/23 Linda Jansen PA [address] [facility] [address] [place] [address] PCP - Medical [facility] 02/22/23 08/24/99 Team Status: Inactive Member [...] Provider Active St art: March 04, 2025 Gold Leaf Laborer Relationship Specialty [place] [address] [place], [place] [id number] Primary Staff Physician Cardiology 03/22/22 Gold Leaf Laborer Relationship Specialty Start Date End Date Linda Jansen PA [address] [facility] [address] [place] [address] PCP - General Family Medicine 08/06/23 Gold Leaf Laborer Relationship Specialty Start Date End Date Linda Jansen PA [address] [facility] [address] [place] [address] PCP - General Family Medicine 08/06/23 Gold Leaf Laborer Relationship Specialty Start Date End Date Linda Jansen PA [address] [place] [address] PCP - General Family Medicine 08/06/23 Team [...] Provider Active St art: May 13, 2025 Team Status: Inactive Member Role Status Dates [facility] [place] Primary Care Provider Active Start: May 27, 2025 End: May 27, 2025 Christian Carlos II, DO Attending Provider Active Start: May 27, 2025 End: May 27, 2025 Team Status: Active Member Role Status Dates Christian Carlos II, DO Attending Provider Active Start: May 27, 2025 [facility] [place] Primary Care Provider Active Start: May 27, 2025 [facility] [place] Referring Provider Active St art: May 27, 2025 Goals (unrecognized section and content) Goals [...] BE BASED ON THE PRIMARY CLINICAL RECORDS. [facility] [employer] [facility]. provides no warranty or guarantee of the accuracy or completeness of information in this document.
[2025-06-08 07:20] LABS: Hematocrit 37.3 % (42.0-54.0); Hemoglobin 12.6 g/dL (14.0-18.0); Mean Corpuscular HGB Conc 33.8 g/dL (29.9-35.2); Mean Corpuscular Hemoglobin 35.0 pg (25.9-34.0); Mean Corpuscular Volume 103.6 fL (80.0-94.0); Platelet Count 135 10^3/uL (150-450); Red Blood Count 3.60 10^6/uL (4.70-6.10); White Blood Count 20.5 10^3/uL (4.0-11.0)
[2025-06-08 08:00] LABS: Alanine Aminotransferase 48 U/L (16-63); Albumin Globulin Ratio 1.3; Albumin Level 3.5 g/dL (3.4-5.0); Alkaline Phosphatase 66 U/L (46-116); Anion Gap 11.2; Aspartate Amino Transferase 30 U/L (15-37); Blood Urea Nitrogen 23.0 mg/dL (7.0-18.0); Calcium 8.4 mg/dL (8.5-10.1); Carbon Dioxide 33.3 mmol/L (21.0-32.0); Chloride 102 mmol/L (98-107); Estimated GFR (African America >60 (>=60 mL/min/1.73m^2); Estimated GFR (Non-African Ame >60 (>=60 mL/min/1.73m^2); Globulin 2.7 g/dL; Glucose 84 mg/dL (74-106); Potassium 3.5 mmol/L (3.5-5.1); Sodium 143 mmol/L (136-145); Total Protein 6.2 g/dL (6.4-8.2)
[2025-06-08 09:22] LABS: Atypical Lymphocytes % Manual 7.0 %; Atypical Lymphocytes Abs Man 1.43; Basophils Abs Manual 0.00 10^3/uL (0.00-0.10); Basophils Percent Manual 0.0 % (0.2-2.0); Eosinophils Absolute Manual 0.00 10^3/uL (0.00-0.70); Eosinophils Percent Manual 0.0 % (0.9-7.0); Lymphocytes Absolute Manual 13.53 10^3/uL (1.20-3.80); Lymphocytes Percent Manual 66.0 % (20.5-60.0); Monocytes Absolute Manual 0.20 10^3/uL (0.30-0.80); Monocytes Percent Manual 1.0 % (1.7-12.0); Segmented Neut Absolute Manual 5.33 10^3/uL (1.4-6.5); Segmented Neutrophils % Manual 26.0 (43.0-75.0); Smudge Cells SEEN
== END 2025-06-08 06:21 | disposition home or self-care (01) ==
LOC: LAB 06:22
PROVIDERS: PCP Physician Assistant; Visit Provider Internal Medicine
DX: D59.10 Autoimmune hemolytic anemia, unspecified (principal); C91.10 Chronic lymphocytic leukemia of B-cell type not having achieved remission
CPT/HCPCS: 36415; 80053; 83010; 83615; 85007; 85027

== ENCOUNTER 2025-06-24 06:17 | Outpatient (OUT) | payer MEDICARE, SELFPAY ==
--- OUTSIDE RECORDS SUMMARY | 2025-06-24 06:22 | XMS_ITS | CCD ---
Author Organization [facility] Care Team Providers Care Kettle Cleaner Name Role Phone Sedrick Ye Unavailable Unavailable Unavailable Unavailable Primary Care Provider UnavailIta Lockwood MD Unavailable [phone] Ita Tuttle MD Unavailable [phone] Ita Tuttle MD Unavailable [phone] ITA TUTTLE Referring Unavailable YE ., DR SEDRICK Whipple Primary Care Unavailable YE ., DR SEDRICK Whipple Admitting Unavailable YE ., DR SEDRICK Whipple Attending Unavailable YE ., DR SEDRICK Whipple Consulting Unavailable YE ., DR SEDRICK Whipple Primary Care Unavailable TIANA, DR TONY Florez Admitting Unavailjean-paul MONTIEL, DR TONY Florez Attending Unavailabl e TIANA, DR TONY Florez Consulting UnavailDIANE Cervantes Consulting [...] Gamino Attending Unavailable Iesha Gamino Attending Unavailable Lue, Iesha M. Attending Unavailable Iesha Gamino Referring Unavailable MD Sedrick Ye Primary Care Provider DO Christian Carlos II Attending Provider Hemmer, REGIONAL COORDINATOR-C Linda Referring Provider [phone] MD Sedrick Ye Primary Care Provider DO Christian Carlos II Attending Provider Hemmer, REGIONAL COORDINATOR-C Linda Referring Provider [phone] Hemmer Linda PIEDRA Primary Care Provider [phone] Hemmer Linda PIEDRA Unavailable Sedrick Ye MD Primary Care Provider [phone] Christian Carlos DO Attending Provider [phone] Hemmer REGIONAL COORDINATOR-CLinda Referring Provider [phone] NON STAFF Primary Care Provider Unavailjean-paul [facility] Russell CAMACHO Attending Provider Christian Carlos DO Attending Provider Hemmer REGIONAL COORDINATOR-CLinda Primary Care Provider Hannah Queen APRN Attending Provider [phone] Sedrick Ye MD Primary Care Provider Hemmer REGIONAL COORDINATOR-Linda Long Referring Provider LINDA JANSEN Attending Unavailable BROWN, EULALIO A Referring Unavailable BROWN, EULALIO A Attending Unavailable BROWN, EULALIO A Referring Unavailable BROWN, EULALIO A Referring Unavailable BROWN, EULALIO A Attending Unavailable MAHAMED, EULALIO A Referring Unavailable RGACE HONEYCUTT Attending Unavailable LINDA JANSEN Referring Unavailable SEDRICK LYONS Attending Unavailable GRACE HONEYCUTT Attending Unavailable BROWN, EULALIO A Attending Unavailable BROWN, EULALIO A Referring Unavailable BROWN, EULALIO A Attending Unavailable BROWN, EULALIO A Referring Unavailable HEMLINDA HENDRICKS Attending Unavailable MAHAMED, EULALIO A Attending Unavailable HEMLINDA HENDRICKS Attending Unavailable BROWN, EULALIO A Referring Unavailable BROWN, EULALIO A Referring Unavailable BROWN, EULALIO A Referring Unavailable BROWN, EULALIO A Attending Unavailable BROWN, EULALIO A Referring Unavailable Hemmer REGIONAL COORDINATOR-C, Linda Primary Care Provider Christian Carlos DO Attending Provider [phone] Killian LYON-CGracie Attending Provider Inderjit REGIONAL COORDINATOR-CLinda Referring Provider [phone] Inderjit REGIONAL COORDINATOR-C, Linda Primary Care Provider [phone] Inderjit REGIONAL COORDINATOR-C, Linda Referring Provider [phone] Linda Jansen Primary Care Unavailable Breanna IIChristian Admitting Unavaila ble Adamowicz II, Christian Li Attending Unavaila ble NON STAFF Primary Care Unavailable Hannah Queen Admitting Unavailable Hannah Queen Attending Unavailable Linda Jansen Primary Care Unavailable Linda Jansen Referring Unavailable Breanna IIChristian Admitting Unavaila ble Breanna II, Christian Li Attending Unavaila ble NON STAFF Primary Care Unavailable [facility] Admitting Unavailable [facility] Attending Unavailable ITA TUTTLE Referring Unavailable TONY ARMSTRONG Attending Unavaila ble ITA TUTTLE Attending Unavailable ITA TUTTLE Referring Unavailable Hemmer Linda PIEDRA Unavailable Medications Current Medications MedicationDrug Class(es)DatesSig (Normalized)Sig (Original)amoxicillin 875 mg / clavulanate 125 mg oral tablet (2 sources)Penicillin-class AntibacterialStart: 09-15-2024 End: 29-46-0338kbkm 1 tablet by mouth in the morningamoxicillin-clavulanate (Augmentin) 875-125 MG tablet Indications: Acute non-recurrent maxillary sin usitis Take 1 tablet (875 mg) by mouth in the morning and 1 tablet (875 mg) in the evening. Take with meals. Do all this for 7 days. 14 tablet 09/15/2024 09/22/2024 Activeascorbic acid 250 mg oral tablet (20 sources)Vitamin Ctake 1 tablet by mouth once dailyAscorbic Acid (vitamin C) 250 MG tablet Take 250 mg by mouth Daily Activeb complex vitamins capsule (20 sources)take 1 capsule by mouth once dailyb complex vitamins capsule Take 1 capsule by mouth Daily Activebenzonatate 200 mg oral capsule (2 sources)Non-narcotic AntitussiveStart: 09-29-2024 End: 88-58-9984bnvm 1 capsule by mouth three times daily as needed for cough benzonatate (Tessalon) 200 MG capsule Indications: Acute cough Take 1 capsule (200 mg) by mouth 3 (three) times a day as needed for cough for up to 7 days Do not crush or chew. 21 capsule 09/29/2024 10/06/2024 Activecelecoxib 200 mg oral capsule (10 sources)Nonsteroidal Anti-inflammatory DrugStart: 10-28-2024 End: 81-85-9288dqtn 1 capsule by mouth once dailycelecoxib (CeleBREX) 200 MG capsule Indications: S/P right knee arthroscopy Take 1 capsule (200 mg)by mouth Daily 30 capsule 1 10/28/2024 12/27/2024 ActiveStart: 08-13-2024 End: 59-71-0121xyet 1 capsule by mouth in the morning for paincelecoxib (CeleBREX) 100 MG capsule Indications: Tear of medial meniscus of right knee, current, unspecified tear type, subsequent encounter Take 1 capsule (100 mg) by mouth in the morning and 1 capsule (100 mg) before bedtime. Take as needed for pain. 60 capsule 08/13/2024 11/11/2024 Activecholecalciferol 0.025 mg oral tablet (20 sources)Vitamin Dtake 1 tablet by mouth once dailycholecalciferol (Vitamin D-3) 25 MCG tablet Take 25 mcg by mouth Daily Activedoxazosin 4 mg oral tablet (20 sources)alpha-Adrenergic BlockerStart: 05-25-2023 End: 07-26-1843jnul 1 tablet by mouth at bedtimedoxazosin (Cardura) 4 MG tablet Take 1 tablet by mouth at bedtime 05/25/2023 ActiveStart: 01-17-2023 End: 21-67-7371oygb 1.5 tablets by mouth once daily at bedtimedoxazosin (CARDURA) 2 mg tablet Take 1.5 tablets by mouth daily at bedtime. 135 tablet 1 DiscontinuedStart: 19-91-7564caxs 1 tablet by mouth once daily at bedtimedoxazosin (CARDURA) 2 mg tablet Take 1 tablet by mouth daily at bedtime. 90 tablet 1 12/25/2022 ActiveStart: 09-13-2022 End: 63-86-6729ewca 1 tablet by mouth once daily at bedtimedoxazosin (CARDURA) 1 mg tablet TAKE 1 TABLET BY MOUTH EVERYDAY AT BEDTIME 90 tablet 3 10/08/2022 DiscontinuedComment on above:Take 1 tablet by mouth daily at bedtime. TAKE 1 TABLET BY MOUTH EVERYDAY AT BEDTIMETake 1.5 tablets by mouth daily at bedtime.doxepin hydrochloride 10 mg oral capsule (5 sources)Tricyclic Antidepressant End: 75-75-8946dnrlosh (SINEquan) 10 MG capsule Take 10 mg by mouth as needed at bedtime for sleep 05/21/2024 Discontinuedfolic acid 1 mg oral tablet (2 sources)Start: 17-04-9317ctav 1 tablet by mouth once dailyhydroCHLOROthiazide 25 mg / valsartan 320 mg oral tablet (20 sources)Thiazide Diuretic, Angiotensin 2 Receptor BlockerStart: 05-13-2025 take 1 tablet by mouth once dailyStart: 05-04-2020 End: 23-73-8835xaxp 1 tablet by mouth once daily in the morningValsartan- Hydrochlorothiazide 320-25 mg Tablet Discontinued 1 TAB PO Every morning May 04, 2020 12:00am March 04, 2025 2:54pmtake 1 tablet by mouth in the morningvalsartan-hydroCHLOROthiazide (Diovan-HCT) 320-25 MG tablet Take 1 tablet by mouth in the morning. ActiveComment on above:Take 1 tablet by mouth once daily.TAKE ONE TABLET BY MOUTH DAILYnebivolol 5 mg oral tablet (20 sources)Start: 09-12-2023 End: 58-89-8655fptl 1 tablet by mouth once dailyComment on above:Take 1 tablet by mouth once daily.24 hr NIFEdipine 30 mg extended release oral tablet (20 sources)Dihydropyridine Calcium Channel BlockerStart: 00-06-8479szfw 1 tablet by mouth once dailyNIFEdipine XL (ADALAT CC) 30 mg 24 hr tablet Indications: Hypertension, unspecified type Take 1 tablet by mouth once daily. 90 tablet 3 01/03/2025 ActiveStart: 12-20-2021 End: 79-02-9263lvuy 1 tablet by mouth once dailyNIFEdipine XL (ADALAT CC) 30 mg 24 hr tablet Indications: Hypertension, unspecified type take one tablet by mouth daily 90 tablet 3 01/05/2024 01/01/2025 DiscontinuedStart: 19-91-1848fqlt 1 tablet by mouth once dailyStart: 42-88-6088ervb 1 tablet by mouth twice daily Nifedipine 30 mg Tablet Extended Release 24hr Active 30 MG PO Twice daily October 02, 2018 1:00amtake 30 mg by mouth twice dailyNIFEDIPINE ER ORAL Take 30 mg by mouth twice daily. 0 Activetake 1 tablet by mouth twice dailyNIFEdipine ER 30 MG Oral Tablet Extended Release 24 Hour Take 1 tablet twice daily Quantity: 0 Refills: 0 Ordered: 26-Jun-2021 DO ActiveComment on above:Take 30 mg by mouth twice daily.Take 1 tablet by mouth once daily.perflutren lipid microspheres 1.3 mL in NaCl (PF) 0.9% 10 mL injection (DEFINITY) (20 sources)Start: 01-17-2023 End: 39-06-8775wxtrmkyffy lipid microspheres 1.3 mL in NaCl (PF) 0.9% 10 mL injection (DEFINITY)Start: 12-12-2021 End: 00-86-5653njchjvyvyl lipid microspheres 1.3 mL in NaCl (PF) 0.9% 10 mL injection (DEFINITY)predniSONE 20 mg oral tablet (17 sources)Start: 05-06-2025 End: 39-52-4973pcvl 4 tablets by mouth once dailyStart: 36-43-8393gntzerHHJY (Deltasone) 10 MG tablet Indications: Right knee pain, unspecified chronicity As directed orally - Take 6 tabs day 1 and 2, 5 tabs day 3 and 4, 4 tabs day 5 and 6, 3 tabs day 7 and 8, 2 tabs day 9 and 10, and 1 tab day 11 and 12. 42 tablet 09/30/2024 ActiveStart: 06-10-2024 End: 68-08-8720xoctdaPDEB (Deltasone) 20 MG tablet Indications: Strain of thoracic back region 3 tabs x 2 days, 2 tabs x 2 days, 1 1/2 tab x 2 days, 1 tab x 2 days, 1/2 tab x 2 days, then stop 16 tablet 06/10/2024 07/27/2024 Discontinued (Therapy completed)125 ml sodium chloride 9 mg/ml prefilled syringe (20 sources)Start: 12-12-2021 End: 61-08-8946azpvjp chloride 0.9 % (flush) 10 mL (BD POSIFLUSH)valsartan 320 mg oral tablet (14 sources)Angiotensin 2 Receptor BlockerStart: 03-01-2025 End: 63-11-0739wxrc 1 tablet by mouth once dailyvalsartan (Diovan) 320 MG tablet Indications: Primary hypertension TAKE 1 TABLET BY MOUTH EVERY DAY90 tablet 1 03/23/2025 Active Completed/Discontinued Medications MedicationDrug Class(es)DatesSig (Normalized)Sig (Original)acetaminophen 325 mg / HYDROcodone bitartrate 5 mg oral tablet (8 sources)Opioid AgonistStart: 07-14-2020 End: 86-98-6045pjtp 1 tablet by mouth every four to six hours as needed for pain Hydrocodone-Acetaminophen ([place]) 5-325 mg tablet Discontinued 1 - 2 TAB PO EVERY 4-6 HOURS as needed for Pain 22 12July 14, 2020 August 28, 2021 3:10pmapixaban 5 mg oral tablet (20 sources)Factor Xa InhibitorStart: 05-04-2020 End: 70-46-1328amvx 1 tablet by mouth twice dailyApixaban (Eliquis) 5 mg Tablet Discontinued 5 MG PO Twice daily May 04, 2020 12:00am January 23, 2024 2:05pmComment on above:Take by mouth twice daily.Take 1 tablet by mouth twice daily.aspirin 81 mg delayed release oral tablet (20 sources)Platelet Aggregation Inhibitor, Nonsteroidal Anti-inflammatory Drug Start: 07-30-2013 End: 48-54-5221lmqd 1 tablet by mouth once dailyAspirin 81 mg Tablet,Delayed Release (Dr/Ec) Discontinued 81 MG PO Daily October 02, 2018 1:00am May 04, 2020 8:52amComment on above:Take 81 mg by mouth.betamethasone 3 mg/ml / betamethasone acetate 3 mg/ml injectable suspension (4 sources)CorticosteroidStart: 09-30-2024 End: 85-03-8457sgtyegevpogwa acetate-betamethasone sodium phosphate ([place]) injection 1.5 mgStart: 09-30-2024 End: 51.5 mg, Intra-articular, Once PRN Procedure, Starting on Pascale 09/30/24 at 1629, For 1 dosedoxycycline hyclate 100 mg oral tablet (8 sources)Tetracycline-class DrugStart: 07-14-2020 End: 15-95-4885sqot 1 tablet by mouth twice dailyDoxycycline Hyclate 100 mg tablet Discontinued 100 MG PO Twice daily 10 July 14, 2020 1:00am August 28, 2021 3:10pmfurosemide 40 mg oral tablet (20 sources)Loop DiureticStart: 07-06-2020 End: 17-87-3234uheu 1 tablet by mouth once daily in the morningFurosemide 40 mg tablet Discontinued 40 MG PO Every morning July 06, 2020 1:00am January 23, 2024 2:06pmStart: 05-04-2020 End: 01-08-3531ijfy 1 tablet by mouth twice dailyFurosemide 20 mg tablet Discontinued 20 MG PO Twice daily May 04, 2020 12:00am July 06, 2020 5:50pmtake 1 tablet by mouth twice dailyfurosemide (LASIX) 40 mg tablet Take 40 mg by mouth twice daily. 0 ActiveComment on above:Take 40 mg by mouth twice daily. Take 1 tablet by mouth once daily.gabapentin 300 mg oral capsule (5 sources)Anti-epileptic AgentStart: 09-30-2024 End: 18-16-2027bxgz 1 capsule by mouth at bedtimegabapentin (Neurontin) 300 MG capsule Indications: S/P right knee arthroscopy Take 1 capsule (300 mg) by mouth at bedtime 30 capsule 09/30/2024 12/09/2024 Discontinued (Therapy completed) hydroCHLOROthiazide 25 mg / losartan potassium 100 mg oral tablet (8 sources)Thiazide Diuretic, Angiotensin 2 Receptor BlockerStart: 10-02-2018 End: 88-67-4457awhv 1 tablet by mouth once dailyLosartan-Hydrochlorothiazide 100-25 mg tablet Discontinued 1 TAB PO Daily October 02, 2018 1:00amS2019 8:43amiv contrast (will be provided with radiology test) (20 sources)Start: 12-12-2021 End: 93-88-5803pttnov 1 dose intravenously onceiv contrast (will be provided with radiology test) CT Pulm Vein - No IV access, insert saline lock prior to the sedation, infusion, injection for imaging exam. Discontinue saline lock post exam. If Pt. has a central line or IVAD, may access for administration according to line specific nursing protocol. Once exam is complete flush line and de- access according to line specific nursing protocol in the CT contrast administration guidelines link. 1 Each 0 12/12/2021 03/22/2022 Discontinued (Course of therapy completed)Start: 51-14-0848dflzqp 1 dose intravenously onceiv contrast (will be provided with radiology test) [...] 1 Each 0 12/12/2021 Active Comment on above:CT Pulm Vein - No IV access, insert saline lock prior to the sedation, infusion, injection for imaging exam. Discontinue saline lock post exam. If Pt. has a central line or IVAD, may access for administration according to line specific nursing protocol. Once exam is complete flush line and de-access according to line specific nursing protocol in the CT contrast administration guidelines link.meloxicam 15 mg oral tablet (16 sources)Nonsteroidal Anti-inflammatory DrugStart: 01-08-2024 End: 48-20-4363ituo 1 tablet by mouth once dailyMeloxicam 15 mg tablet Discontinued 15 MG PO Daily January 23, 2024 12:00am April 23, 2024 2:59pm metoprolol tartrate 50 mg oral tablet (8 sources)beta-Adrenergic BlockerStart: 10-02-2018 End: 94-28-9866yxjr 1 tablet by mouth twice dailyMetoprolol Tartrate 50 mg Tablet Discontinued 50 MG PO Twice daily October 02, 2018 1:00am May 06, 2020 1:58pmpantoprazole 40 mg delayed release oral tablet (20 sources)Proton Pump InhibitorStart: 12-04-2021 End: 60-89-6251kbny 1 tablet by mouth once dailypantoprazole DR (PROTONIX) 40 mg tablet Take 1 tablet by mouth once daily. 30 tablet 0 12/04/2021 03/22/2022 Discontinued (Course of therapy completed)Comment on above:Take 1 tablet by mouth once daily.microencapsulated potassium chloride 10 meq extended release oral tablet (20 sources)Start: 12-20-2021 End: 11-37-5109gdak 1 tablet by mouth once dailypotassium chloride ER (K-DUR, KLOR-CON) 10 mEq tablet Take 1 tablet by mouth once daily. 90 tablet 3 01/10/2022 05/10/2022 Discontinued (Clinical Decision)Start: 36-74-0206zojd 1 tablet by mouth once dailyKLOR-CON M20 20 mEq tablet TAKE 1 TABLET BY MOUTH EVERY DAY 90 tablet 3 10/26/2021 ActiveStart: 10-02-2018 End: 33-02-5025reox 1 tablet by mouth once daily in the morningPotassium Chloride 20 mEq Tablet Extended Release Discontinued 20 MEQ PO Every morning October 02, 2018 1:00am April 23, 2024 2:59pmComment on above:TAKE 1 TABLET BY MOUTH EVERY DAYTake 1 tablet by mouth once daily.sildenafil 100 mg oral tablet (20 sources)Phosphodiesterase 5 InhibitorStart: 08-29-2021 End: 29-41-1826Qwjboziput (Viagra) 100 mg Tablet Discontinued 50 MG PO Daily as needed for Erectile Dysfunction August 29, 2021 1:00am July 24, 2024 11:02amtake 1 tablet by mouth every twenty-four hours as neededsildenafil (Viagra) 100 MG tablet Take 100 mg by mouth Daily as needed for erectile dysfunction Activesildenafil citrate (VIAGRA ORAL) Take by mouth as needed. Activesildenafil citrate (VIAGRA ORAL) Take by mouth as needed. 0 ActiveComment on above:Take by mouth as needed.sotalol hydrochloride 80 mg oral tablet (20 sources)AntiarrhythmicStart: 12-20-2021 End: 78-42-8368wdgk 1 tablet by mouth twice dailysotalol (BETAPACE) 80 mg tablet Indications: Atrial fibrillation, persistent (HCC) Take 1 tablet bymouth twice daily. 180 tablet 3 01/10/2022 05/10/2022 Discontinued (Discontinued by another Health Care Provider)Start: 05-05-2020 End: 10-83-1299owtg 1 tablet by mouth every twelve hoursSotalol 80 mg Tablet Discontinued 80 MG PO Q12H 60 30 May 05, 2020 12:00am January 23, 2024 2: 06pmComment on above:Take 80 mg by mouth twice daily.Take 1 tablet by mouth twice daily.spironolactone 25 mg oral tablet (1 source)Aldosterone AntagonistStart: 63-69-4716agvf 1 tablet by mouth once dailySpironolactone 25 MG Oral Tablet TAKE 1 TABLET DAILY. Quantity: 90 Refills: 3 Ordered: 29-Oct-2021 Tera Davison MD Start : 29-Oct-2021 Active new start tiZANidine 4 mg oral tablet (12 sources)Central alpha-2 Adrenergic AgonistStart: 06-10-2024 End: 28-77-6621qzcg 1 tablet by mouth every eight hours as needed for muscle spasms and muscle spasmstiZANidine (Zanaflex) 4 MG tablet Indications: Muscle spasm Take 1 tablet (4 mg) by mouth every 8 (eight) hours if needed for muscle spasms for up to 10 days 30 tablet 06/10/2024 07/27/2024 Discontinued Problems Active Problems Problem ClassificationProblemDateDocumented DateEpisodic/Chronic Administrative/social admission (3 sources)Repeated prescription; Translations: [Encounter for issue of repeat prescription]EpisodicAllergic reactions (6 sources)Contact dermatitis; Translations: [Unspecified contact dermatitis, unspecified cause]84-84-6437MhliwuygIbttcb; peripheral; and visceral artery aneurysms (20 sources)Ascending aorta dilatation; Translations: [Thoracic aortic ectasia] Onset: 30-79-7826CgzmbdqHconqci dysrhythmias (11 sources)Palpitations; Translations: [Palpitations]EpisodicCoagulation and hemorrhagic disorders (20 sources)Thrombophilia; Translations: [Other thrombophilia]Onset: 02-09-2024 72-21-6189GqavkjwXigkesst atherosclerosis and other heart disease (1 source)Calcification of coronary artery; Translations: [Atherosclerotic heart disease of [place] coronary artery without angina pectoris]23-75-4260Ljxdtod Crushing injury or internal injury (4 sources)Crushing injury of right foot, initial encounter; Translations: [CRUSHING INJURY RIGHT FOOT INITIAL]Onset: 90-90-1297VcgozfjvYskmdxxkkr and other anemia (2 sources)Autoimmune hemolytic anemia; 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]14-31-6912CibozgmTrqijpae mellitus without complication (2 sources)Impaired fasting glycemia; Translations: [Impaired fasting glucose] 60-54-0071PiyglsstLlhffijv of white blood cells (20 sources)Lymphocytosis; Translations: [Lymphocytosis (symptomatic)]Onset: 348357-28-6526EqwugkpH Codes: Struck by; against (1 source)Other cause of strike by thrown, projected or falling object, initial encounter; Translations: [OTHCAUSE STRIK THRWN/FALL OBJ INIT]Onset: 11-14-2022 EpisodicEssential hypertension (20 sources)Essential hypertension; Translations: [Unspecified essential hypertension]Onset: 885775-44-0506SsatmmqQqskume on above:Problem List clean-up per request of Phys. EHR CmteFracture of upper limb (6 sources)Closed fracture of phalanx of finger; Translations: [Fracture of unspecified phalanx of unspecifiedfinger, initial encounter for closed fracture] 63-54-5030MuimfaiyIxaki disorders and dislocations; trauma-related (2 sources)Tear of medial meniscus of knee; Translations: [Other tear of medial meniscus, current injury, right knee, subsequent encounter]45-43-3188Bthqfyjh Leukemias (3 sources)Chronic lymphoid leukemia, disease; Translations: [Chronic lymphocytic leukemia of B-cell type not having achieved remission]Onset: 508996-78-6240NtpvcfrQkuqdbjplwo chest pain (8 sources)Chest pain; Translations: [Chest pain, unspecified]Episodic Osteoarthritis (12 sources)Degenerative joint disease of ankle AND/OR foot; Translations: [Primary osteoarthritis, unspecifiedankle and foot]Onset: ChronicOther connective tissue disease (1 source)Synovitis and tenosynovitis, unspecified; Translations: [SYNOVITIS AND TENOSYNOVITIS UNS]Onset: 79-03-2095EwvcknwlWgrfo connective tissue disease (4 sources)Spasm; Translations: [Other muscle spasm]09-38-5549PgbegyeaPiarz connective tissue disease (2 sources)Pain of left hand; Translations: [Pain in left hand]09-30-2024 EpisodicOther connective tissue disease (6 sources)Pain in finger; Translations: [Pain in unspecified finger(s)] 00-08-2920VkooubjgWjguv connective tissue disease (2 sources)Cramp; Translations: [Cramp and spasm]28-51-3044UhudrjdzHkewy injuries and conditions due to external causes (3 sources)Unspecified injury of right ankle, initial encounter; Translations: [UNSPECIFIED INJURY RT ANKLE INITIAL]Onset: 27-74-2510HvzfkjsfJjnqw male genital disorders (20 sources)Male erectile dysfunction, unspecified; Translations: [Impotence of organic origin]Onset: 567764-05-6296VwxyrqwUljny non-traumatic joint disorders (2 sources)Pain in right knee; Translations: [Pain in joint, lower leg] 58-34-6564CvhoapnyNqkml nutritional; endocrine; and metabolic disorders (8 sources)Overweight in adulthood with body mass index of 25 or more but less than 30; Translations: [Overweight]EpisodicOther upper respiratory infections (2 sources)Acute maxillary sinusitis; Translations: [Acute maxillary sinusitis, unspecified]87-45-1003JxpjiepaNxjhoqpcex and visceral atherosclerosis (20 sources)Arteriosclerotic vascular disease; Translations: [Unspecified atherosclerosis]Onset: 89-92-9459FvlcxjuKjnlwjux codes; unclassified (20 sources)Sleep apnea; Translations: [Unspecified sleep apnea]Onset: 568187-03-4330XtoasaiYedsldll codes; unclassified (20 sources)Obstructive sleep apnea syndrome; Translations: [Obstructive sleep apnea (adult) (pediatric)]Onset: 013053-25-5957JdwgrxsOhulzysa codes; unclassified (5 sources)Non-smoker; Translations: [Other specified conditions influencing health status]EpisodicResidual codes; unclassified (1 source)H/O: atrial fibrillation; Translations: [Other specified postprocedural states]EpisodicResidual codes; unclassified (6 sources)History of arthroscopy of knee joint; Translations: [Other specified postprocedural states]13-90-3838PphuuuajKvmmald and strains (4 sources)Strain of thoracic region; Translations: [Strain of muscle and tendon of back wall of thorax, initial encounter]00-76-8157IwxjtoejCvkhzdknsxy injury; contusion (5 sources)Contusion of right ankle, initial encounter; Translations: [CONTUSION RIGHT ANKLE INITIAL ENC]Onset: 96-56-5317HyfvxoenGtlqkkxzthhe (2 sources)Right knee pain, unspecified -21-4825 Past or Other Problems Problem ClassificationProblemDateDocumented DateEpisodic/ChronicCalculus of urinary tract (20 sources)History of calculus of kidney; Translations: [Personal history of urinary calculi]Onset: 04-14-2023 Resolved: 894728-88-2834NzktnjpuXnwweys dysrhythmias (20 sources)Paroxysmal atrial fibrillation; Translations: [Atrial fibrillation] Onset: 09-27-2021 Resolved: [id number] on above:Problem List clean-up per request of Phys. EHR CmteComplications of surgical procedures or medical care (20 sources)Drug therapy finding; Translations: [Unspecified adverse effect of drug or medicament, initial encounter]Onset: 02-09-2024 Resolved: [id number] on above:Problem List clean-up per request of Phys. 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 EHR CmteOther and unspecified benign neoplasm (20 sources)History of polyp of colon; Translations: [History of colon polyps] Onset: [id number] connective tissue disease (1 source)Pain in left finger(s); Translations: [Pain in left finger(s)]Onset: 02-80-4743SfachzwvZgyca diseases of kidney and ureters (20 sources)Hydronephrosis; Translations: [Unspecified hydronephrosis]Onset: 04-14-2023 Resolved: [id number] infections; including parasitic (20 sources)Personal history of other infectious and parasitic diseases; Translations: [History of COVID-19]Onset: 299480-88-8500BgzqqraoPvyfd lower respiratory disease (20 sources)Dyspnea; Translations: [Other respiratory abnormalities]Onset: 02-09-2024 Resolved: 793307-85-5550TbjbiwokJvrol lower respiratory disease (20 sources)Nodule of lung; Translations: [Solitary pulmonary nodule]Onset: 76-25-0546DistmyqiFyfx-; endo-; and myocarditis; cardiomyopathy (except that caused by tuberculosis or sexually transmitted disease) (20 sources)Cardiomyopathy; Translations: [Cardiomyopathy, unspecified]Onset: 02-09-2024 Resolved: 300254-99-7125HhyarlgTlomfum on above:Problem List clean-up per request of Phys. EHR CmteUnclassified (3 sources)Never smoked tobacco; Translations: [Never a smoker]Viral infection (20 sources)Disease caused by 2019-nCoV; Translations: [COVID-19]Onset: 08-05-2023 Resolved: [id number]jtzo on above:Problem List clean-up per request of Phys. EHR Cmte Results Test NameValueInterpretationReference RangeFacilityECHOon 06-13-2025 EchocardiographyEchocardiography Report: Transthoracic Echo [place] [facility] Date of service: 06/13/2025 10:33:42 AM ATTENDANT Ordering physician: ITA TUTTLE Exam indication: Sustained atrial fibrillation Technologist: Glenroy Carrington RDMS, RVT Interpreting physician: Lelia Escoto MD PATIENT: Name: MR. DARIUS VALERA : 1960 Age: 64 years Gender: M Previous cardiovascular interventions: PVI (2021) Primary rhythm: sinus. Height: 182.90 cm BSA: 2.12 m Weight: 88.60 kg BMI: 26.5 kg/m Heart rate 72 bpm Blood pressure 143/87 mmHg Color Doppler was utilized to interrogate the cardiac valves assessed and spectral Doppler was utilized to determine the flow velocities and pressure gradients reported in this exam. Myocardial strain analysis was performed in this exam to aid in the assessment of cardiac function. MEASUREMENTS: Value Indexed Normal Max aortic dimension 3.7 cm Ao < 3.8 Left atrial volume 74 ml (Anand's) 35 ml/m Benjy <= 34 LV ID (diastole) 5.5 cm (2D) 2.59 cm/m LV ID (systole) 3.2 cm (2D) 1.50 cm/m IVS, leaflet tips 0.9 cm (2D) Posterior wall thickness 0.8 cm (2D) Left ventricular mass 184 g (2D) 87 g/m Global peak long strain -19.4 % LV stroke volume 81 ml (2D biplane) LV end diastolic volume 140 ml (2D biplane) 65.9 ml/m 34<=EDVi<75 LV end systolic volume 59 ml (2D biplane) 27.8 ml/m Ejection Fraction 58 % (2D biplane) EF > 52 FINDINGS: LEFT VENTRICLE The left ventricle is normal in size. Left ventricular systolic function is normal. Global LV myocardial strain is normal. Normal left ventricular diastolic function. Mitral annular lateral E/e': 10.2. Mitral annular septal E/e': 15.0. Wall Motion: All scored segments are normal. RIGHT VENTRICLE The right ventricle is dilated. Right ventricular systolic function is normal. RV systolic tissue Doppler velocity is 18.3 cm/s. Tricuspid annular displacement is 2.5 cm. Estimated right ventricular systolic pressure is likely underestimated due to a weak or incomplete tricuspid regurgitation signal and is, at least, 27 mmHg consistent with normal pulmonary artery pressures. Estimated right atrial pressure is 3 mmHg based on IVC assessment. LEFT ATRIUM The left atrial cavity is mildly dilated. RIGHT ATRIUM The right atrial cavity is mildly dilated (RA area = 20.3 cm ). Inferior Vena Cava: The inferior vena cava appears normal measuring 2.02 cm. The vessel decreases greater than 50 percent with inspiration. MITRAL VALVE There is trace mitral valve regurgitation. There is mild thickening. The pressure half time is 60 msec. The peak mitral E/A ratio is 1.43. The average mitral E/e' ratio is 12.6. The mitral flow deceleration time is 206 msec. TRICUSPID VALVE There is trace (trace - 1+) tricuspid valve regurgitation. There is no thickening. AORTIC VALVE There is no aortic valve regurgitation. Tricuspid aortic valve. There is no thickening. PULMONIC VALVE There is trace pulmonic valve regurgitation. There is no thickening. AORTA The visualized aorta is borderline dilated. Measurements - Aortic valve annulus 1.7 cm. Sinus: 3.5 cm. Sinotubular junction 2.9 cm. Mid ascending aorta 4.0 cm. Distal ascending aorta 3.7 cm. INTERATRIAL SEPTUM There is no evidence of intracardiac shunting as detected by Doppler. PERICARDIUM There is no pericardial effusion. CONCLUSIONS: - Exam indication: Sustained atrial fibrillation - The left ventricle is normal in size. Left ventricular systolic function is normal. EF = 58 5% (2D biplane) Normal left ventricular diastolic function. - The right ventricle is dilated. Right ventricular systolic function is normal. - The left atrial cavity is mildly dilated. - The right atrial cavity is mildly dilated. - The visualized aorta is borderline dilated with a maximal dimension of 4.0 cm. - Exam was compared with the prior echocardiographic exam performed on 07/31/2023. same findings * * * Final * * * [facility] : [id number]m [facility] LDHon 92-52-7296YJL [Catalytic activity/Vol]299 U/LHigh85 - 227 U/LNOMS HealthcareCCF CMP (CMP) (FOR REMOTE [facility] USE)on 39-85-2682Bwfxmhm [Mass/Vol]3.5 g/dL3.4 - 5.0 g/dLNOMS HealthcareALBUMIN GLOBULIN RATIO1.3NOMS HealthcareALP [Catalytic activity/Vol]66 U/L46 - 116 U/L NOMS HealthcareALT [Catalytic activity/Vol]48 U/L16 - 63 U/LNOMS HealthcareAnion gap [Moles/Vol]11.2 mmol/LNOMS HealthcareAST [Catalytic activity/Vol]30 U/L15 - 37 U/LNOMS HealthcareBilirubin [Mass/Vol]2.0 mg/dLHigh0.2 - 1.0 mg/dLNOMS HealthcareCalcium [Mass/Vol]8.4 mg/dLLow8.5 - 10.1 mg/dLNOMO HealthcareChloride [Moles/Vol]102 mmol/L98 - 107 mmol/LNOMS HealthcareCO2 [Moles/Vol]33.3 mmol/L High21.0 - 32.0 mmol/LNOMS HealthcareCreatinine [Mass/Vol]0.88 mg/dL0.70 - 1.30 mg/dLNOMO HealthcareGFR/1.73 sq M.predicted CKD-EPI (S/P/Bld) [Vol rate/Area]>60 >=60 mL/min/1.73m 2NOMS HealthcareGlobulin (S) [Mass/Vol]2.7 g/dLNOMO Healthcare Glucose [Mass/Vol]84 mg/dL74 - 106 mg/dLNOMO HealthcarePotassium [Moles/Vol]3.5 mmol/L3.5 - 5.1 mmol/LNOMS HealthcareProtein [Mass/Vol]6.2 g/dLLow6.4 - 8.2 g/dL NOMS HealthcareSodium [Moles/Vol]143 mmol/L136 - 145 mmol/LNOMS HealthcareTBH EGFR-NON AF [place]>60>=60 mL/min/1.73m 2NOMS HealthcareUrea nitrogen [Mass/Vol]23.0 mg/dLHigh7.0 - 18.0 mg/dLNOMO HealthcareUrea nitrogen/Creatinine [Mass ratio]26.1 mg/mgNOMS HealthcareNo Panel Informationon 06-08-2025 Interpretation and review of laboratory resultsAbnormalExcelsior Springs Medical CenterCLINISYNC [facility] HealthcareALL CBC WITH AUTO DIFFon 75-86-8212Rtatdxiefyq distribution width (RBC) [Ratio]14.1 %11.0 - 15.0 %NOMS HealthcareHematocrit (Bld) [Volume fraction]33.5 %Low42.0 - 54.0 %NOMS HealthcareHemoglobin (Bld) [Mass/Vol]11.3 g/dLLow14.0 - 18.0 g/dLSPANISH FORK HOSPITAL HealthcareInterpretation and review of laboratory resultsAbnoEncompass Health Rehabilitation [facility] (RBC) [Entitic mass]36.3 fkInsr00.9 - 34.0 pg [facility] (RBC) [Mass/Vol]33.7 g/dL29.9 - 35.2 g/dLPerry County Memorial HospitalV (RBC) [Entitic vol]107.7 yYCcif65.0 - 94.0 fLExcelsior Springs Medical CenterPlatelet mean volume (Bld) [Entitic vol]8.8 fLLow9.5 - 13.5 fLCox Walnut Lawn UCI390MujXOZEKindred Hospital RBC3.11LowCox Walnut Lawn WBC24.4HighResearch Psychiatric CenterINISRAY COUNTY MEMORIAL [facility]PITAL HealthcareALL CBC WITH AUTO DIFFon 89-32-3028Ebzjrmlgwux distribution width (RBC) [Ratio]15.6 %High11.0 - 15.0 %Excels[facility] Springs Medical CenterHematocrit (Bld) [Volume fraction]32.1 %Low42.0 - 54.0 %[facility] Springs Medical CenterHemoglobin (Bld) [Mass/Vol]10.5 g/dLLow14.0 - 18.0 g/dLSPANISH FORK HOSPITAL HealthcareInterpretation and review of laboratory resultsAbnoEncompass Health [facility] (RBC) [Entitic mass]36.7 teBrhh71.9 - 34.0 pg [facility] (RBC) [Mass/Vol]32.7 g/dL29.9 - 35.2 g/dLPerry County Memorial HospitalV (RBC) [Entitic vol]112.2 pZNozy57.0 - 94.0 fLExcelsior Springs Medical CenterPlatelet mean volume (Bld) [Entitic vol]9.1 fLLow9.5 - 13.5 fLCox Walnut Lawn CQK278QPNSKindred Hospital RBC2.86LowCox Walnut Lawn WBC29.2HCritical access hospital CBC WITH AUTO DIFFon 84-74-1425Hhnxdnyeipa distribution width (RBC) [Ratio]16.6 %High11.0 - 15.0 %[facility] Springs Medical CenterHematocrit (Bld) [Volume fraction]27.9 %Low42.0 - 54.0 %[facility] Medical CenterHemoglobin (Bld) [Mass/Vol]9.2 g/dLLow14.0 - 18.0 g/dLSPANISH FORK HOSPITAL HealthcareInterpretation and review of laboratory resultsAbnormalPerry County Memorial HospitalH (RBC) [Entitic mass]37.2 xhUedl48.9 - 34.0 pg [facility] Memorial HospitalHC (RBC) [Mass/Vol]33 g/dL29.9 - 35.2 g/dLPerry County Memorial HospitalV (RBC) [Entitic vol]113 qTYrwx35.0 - 94.0 fLExcelsior Springs Medical CenterPlatelet mean volume (Bld) [Entitic vol]9.2 fLLow9.5 - 13.5 fLExcelsior Springs Medical CenterTB CBJ365UipSHAB HealthcareTB RBC2.47LowExcelsior Springs Medical CenterTB WBC26.8HighExcelsior Springs Medical CenterCLINISYNC [facility] HealthcareAntibody Identificationon 01-09-1468Bbbqiiki IdentificationWARM NormalThe [facility] Physician GroupComment on above:Result Comment: Auto-Anti-D Auto-Anti-e Testing performed and reported by [facility].Blood Bank Pathologist Reviewon 01-58-3690Mwffm Bank Pathologist ReviewSent to PathologyHCA Florida Central Tampa Emergency Physician GroupComment on above: Result Comment: PERFORMED BY: [facility] [address] [place] [address] PATHOLOGIST AUTO MECHANIC SUPERVISOR DANIELLE QUINONES M.D.[facility] BB Sendouton 61-45-5001Jtrgvczr [facility] BB SendoutSent to [facility] Physician GroupComment on above: Result Comment: Sent to [facility] for further testing. Final report to follow. PERFORMED BY: [facility] [address] [place] [address] PATHOLOGIST AUTO MECHANIC SUPERVISOR DANIELLE QUINONES M.D.Complement DATon 28-82-7411Nyuajuxsqy C3B,-C3D AHGPositive Critically abnormalNegativeThe [facility] Physician [facility] HospitalComment on above:Result Comment: PERFORMED BY: [facility] [address] [place] [address] PATHOLOGIST AUTO MECHANIC SUPERVISOR DANIELLE QUINONES M.D.Direct Antiglobulin Teston 92-79-0430NpC AHGPositive Critically abnormalNegativeThe [facility] Physician GroupDirect Coomleesaon 86-66-8535Zlzyzfjkxelu AHGPositiveCritically abnormalNegativeThe [facility] Physician GroupComment on above:Result Comment: PERFORMED BY: [facility] [address] [id number] PATHOLOGIST AUTO MECHANIC SUPERVISOR DANIELLE Casiano 05-13-2025L Specimen: [id number] Received: 05/16/25 Status: FRANCIS Yin Num: [id number] Spec Type: Impression Subm Dr: Christian Carlos II, DO Tissues: DEBORAH Procedures: PATHREVIEW Age/ Patient Sex Location Account Attending Physician Darius Valera/M XT [id number] Christian Carlos II, DO SPEC NUM: [id number] RECD: 05/16/25 STATUS: FRANCIS YIN NUM: [id number] MELONIE: 05/13/25- SUBM DR: Christian Carlos II, DO ENTERED: 05/16/25-[address] [facility] DR: SPEC TYPE: Impression DEPT: DC ORDERED: PATHREVIEW ORDERED: PATHREVIEW Blood Bank Results Date Time Test Result Flag (u) Normal Range 05/12/25935 Ab Screen POSITIVE AB ID 05/12/25935 AUTO, Panaglutin, Warm Auto-Anti-D Auto-Anti-e Testing performed and reported by [facility]. Pathologist Review [place] [facility] reports detection of auto anti-D, auto anti-e, nonspecific reactivity, and probable warm autoantibody. Recommendation: The majority of ABO/Rh D compatible units will be incompatible with neat serum/plasma. Specimen: [id number] Received: 05/16/25 Status: FRANCIS Yin Num: [id number] Spec Type: Impression Subm Dr: Christian Carlos II, DO Tissues: PATHBBK Procedures: PATHREVIEW Patient: Darius Valera [id number] (Continued) Signed (signature on file) Vinay Cowan JR, MD 05/25/[address] [place] [address] Physician [facility] HospitalAlanine aminotransferase [Enzymatic activity/volume] in Serum or PlasmaOrdered By: Christian Carlos on 29-82-4827DGH [Catalytic activity/Vol]23 U/LNormal7-52The [facility] HospitalComment on above:Performed By: #### SCAN CBC, LDH, CMP #### [facility] [address] [place] [address] USAAlbumin [Mass/volume] in Serum or Plasma by Bromocresol green (BCG) dye binding methoOrdered By: Christian Carlos on 29-79-5295Eqqzeaq BCG dye [Mass/Vol]4.2 g/dL3.5-5.7FMemorial Health SystemAlkaline phosphatase [Enzymatic activity/volume] in Serum or PlasmaOrdered By: Christian Carlos on 18-42-1320RRL [Catalytic activity/Vol]69 U/LPzvpdy67-058HqyeurupjThe Bellevue HospitalComment on above:Performed By: #### SCAN CBC, LDH, CMP #### [facility] [address] [place] [address] USAAnisocytosis [Presence] in Blood by Light microscopy Ordered By: Christian Carlos on 97-51-6243Wayomjmkdnaj Ql (Bld)SlightNormal The [facility] HospitalComment on above:Performed By: #### SCAN CBC, LDH, CMP #### [facility] [address] [place] [address] USAAspartate aminotransferase [Enzymatic activity/volume] in Serum or PlasmaOrdered By: Christian Carlos on 05-59-0856RFR [Catalytic activity/Vol]28 U/SRauuni84-42IbiyjokzpThe Bellevue HospitalComment on above: Performed By: #### SCAN CBC, LDH, CMP #### [facility] [address] [place] [address] USABasophils [#/volume] in Blood by Automated countOrdered By: Christian Carlos on 90-17-3459Mzjmdibug (Bld) [#/Vol]0.1 10*3/uLNormal 0.0-0.2FMemorial Health SystemComment on above:Performed By: #### SCAN CBC, LDH, CMP #### [facility] [address] [place] [address] USABasophils/100 leukocytes in Blood by Automated count Ordered By: Christian Carlos on 17-70-1647Mxgrlmcdj/100 WBC (Bld)0.3 %Normal. The [facility] HospitalComment on above:Performed By: #### SCAN CBC, LDH, CMP #### [facility] [address] [place] [address] USABilirubin.total [Mass/volume] in Serum or PlasmaOrdered By: Christian Carlos on 59-76-0963Xewjtlxeh [Mass/Vol]3.4 mg/dLHigh0.3-1.0 The [facility] HospitalComment on above:Samples from patients who have taken Naproxen have shown spurious elevation in Total Bilirubin levels. A metabolite of Naproxen, O-desmethylnaproxen, has been shown to interfere with the Sathish-Federica method for measuring Total Bilirubin.Result Comment: Samples from patients who have taken Naproxen have shown spurious elevation in Total Bilirubin levels. A metabolite of Naproxen, O-desmethylnaproxen, has been shown to interfere with the Jenjoryik-Groleslie method for measuring Total Bilirubin.Performed By: #### SCAN CBC, LDH, CMP #### [facility] [address] [place] [address] USACalcium [Mass/volume] in Serum or PlasmaOrdered By: Christian Carlos on 02-63-5967Clsnnax [Mass/Vol]8.7 mg/dLNormal8.6-10.3 The [facility] HospitalComment on above:Performed By: #### SCAN CBC, LDH, CMP #### [facility] [address] [place] [address] USACarbon dioxide, total [Moles/volume] in Serum or Plasma Ordered By: Christian Carlos on 57-91-9088MU7 [Moles/Vol]34.3 mmol/LHigh 21.0-31.0The [facility] HospitalComment on above:Performed By: #### SCAN CBC, LDH, CMP #### [facility] [address] [place] [address] USAChloride [Moles/volume] in Serum or PlasmaOrdered By: Christian Carlos on 80-67-2473Udiumgjt [Moles/Vol]104 mmol/AFryabl27-059 The [facility] HospitalComment on above:Performed By: #### SCAN CBC, LDH, CMP #### [place] [address] USAComprehensive Metabolic Panelon 54-86-5784Ohonbws [Mass/Vol]4.2 g/dLNormal3.5-5.7The [facility] Physician GroupComment on above: Performed By: #### SCAN CBC, LDH, CMP #### [facility] [address] [place] [address] USACreatinine Clr Calc Klzclnbn21.86NormalThNell J. Redfield Memorial Hospital Physician GroupComment on above:Performed By: #### SCAN CBC, LDH, CMP #### [place] [address] USAGFR/1.73 sq M.predicted MDRD (S/P/Bld) [Vol rate/Area] mL/min/{1.73_m2}NormalThe [facility] Physician GroupComment on above:Performed By: #### SCAN CBC, LDH, CMP #### [facility] [address] [place] [address] USACreatinine [Mass/volume] in Serum or PlasmaOrdered By: Christian Carlos on 82-25-9936Kykxbeehrc [Mass/Vol]0.92 mg/dLNormal0.70-1.30 The [facility] HospitalComment on above:Performed By: #### SCAN CBC, LDH, CMP #### [facility] [address] [place] [address] USADacrocytes [Presence] in Blood by Light microscopyOrdered By: Christian Carlos on 30-90-9567Bayjllswnc LM Ql (Bld)SlightThe Bellevue HospitalEosinophils [#/volume] in Blood by Automated countOrdered By: Christian Carlos on 32-91-9088Shdvndwraax (Bld) [#/Vol]0.0 10*3/uLNormal 0.0-0.45The [facility] HospitalComment on above:Performed By: #### SCAN CBC, LDH, CMP #### [place] [address] USAEosinophils/100 leukocytes in Blood by Automated count Ordered By: Christian Carlos on 63-41-9214Frmxaxcvbij/100 WBC (Bld)0.1 %Normal. The [facility] HospitalComment on above:Performed By: #### SCAN CBC, LDH, CMP #### [place] [address] USAErythrocyte Sedimentation Rateon 69-83-0898DLD (Bld) [Velocity]mm/hNormal0-19The [facility] Physician GroupComment on above:Result Comment: PERFORMED BY: [place] [address] PATHOLOGIST AUTO MECHANIC SUPERVISOR DANIELLE QUINONES M.D.Performed By: #### SCAN CBC, LDH, CMP #### [place] [address] USAErythrocyte distribution width [Ratio] by Automated count Ordered By: Christian Carlos on 99-19-9405Kayxlidfqlz distribution width (RBC) [Ratio]16.6 %High12.0-14.8The [facility] HospitalComment on above: Performed By: #### SCAN CBC, LDH, CMP #### [facility] [address] [place] [id number] USAErythrocyte morphology finding [Identifier] in Blood Ordered By: Christian Carlos on 43-71-8371PQK morphology finding Nom (Bld)N/A The Bellevue HospitalErythrocyte sedimentation rate by Photometric methodOrdered By: Christian Carlos on 58-19-5012NRZ Photometric method (Bld) [Velocity]< 1 mm/hr0-The Bellevue HospitalErythrocytes [#/volume] in Blood by Automated countOrdered By: Christian Carlos on 86-80-4276BLW (Bld) [#/Vol]2.39 10*6/uLLow3.90-5.60The [facility] HospitalComment on above:Performed By: #### SCAN CBC, LDH, CMP #### [facility] [address] [place] [address] USAFerritin [Mass/volume] in Serum or PlasmaOrdered By: Christian Carlos on 68-60-2280Snomiwjn [Mass/Vol]179.1 ng/lHAjolqg02.9-336.2 The [facility] HospitalComment on above:Performed By: #### SCAN CBC, LDH, CMP #### [facility] [address] [place] [id number] USAFolate [Mass/volume] in Serum or PlasmaOrdered By: Christian Carlos on 01-89-0979Tpzldr [Mass/Vol]19.3 ng/mL>5.9The [facility] HospitalComment on above:Folate reference range: >5.9 ng/mlThe WHO technical consultation on folate and vitamin w31iwptlzkdxulo has determined that folate concentrations lessthan 4 ng/ml are considered deficient.Glomerular filtration rate [Volume Rate/Area] in Serum, Plasma or Blood by Creatinine Ordered By: Christian Carlos on 27-85-1318Oktgoqzbyo filtration rate [Volume Rate/Area] in Serum, Plasma or Blood by Creatinine> 60.0 mL/MinThe Bellevue HospitalGlucose [Mass/volume] in Serum or PlasmaOrdered By: Christian Carlos on 37-72-2727Bhravjp [Mass/Vol]88 mg/uGWcaeti69-512WltvywatcThe Bellevue HospitalComment on above:ADA recommended reference rangeRandom Glucose Reference Range is dependent on time and content of last meal. Glucose of more than 200 mg/dL in a nonstressed, ambulatory subject supports the diagnosisof Diabetes Mellitus.Result Comment: Random Glucose Reference Range is dependent on time and content of last meal. Glucose of more than 200 mg/dL in a nonstressed, ambulatory subject supports the diagnosis of Diabetes Mellitus. ADA recommended reference rangePerformed By: #### SCAN CBC, LDH, CMP #### [address] [address] USAHaptoglobinon 86-53-1054PYRZXXUHVTIfi/dLLow44 - 215 mg/dL NOMS HealthcareInterpretation and review of laboratory resultsAbnoPenn Highlands HealthcareNOMO HealthcareHaptoglobin<18Tcx38-742Jrn [facility]ician Group Comment on above:Result Comment: PERFORMED BY: [place] [id number] PATHOLOGIST AUTO MECHANIC SUPERVISOR DANIELLE QUINONES M.D.Performed By: #### SCAN CBC, LDH, CMP #### [address] [address] USAHaptoglobin [Mass/volume] in Serum or PlasmaOrdered By: Christian Carlos on 81-45-2510Hhzgxbsdsvq [Mass/Vol]mg/jQNrz92-328WctukiamdThe Bellevue HospitalHematocrit [Volume Fraction] of Blood by Automated count Ordered By: Christian Carlos on 61-26-1770Xojaivvrrx (Bld) [Volume fraction] 26.6 %Low38.8-50.0The [facility] HospitalComment on above:Performed By: #### SCAN CBC, LDH, CMP #### [place] [id number] USAHemoglobin [Mass/volume] in BloodOrdered By: Christian Carlos on 24-10-4556Msglwwpiky (Bld) [Mass/Vol]8.9 g/dLLow13.0-17.0The [facility] HospitalComment on above:Performed By: #### SCAN CBC, LDH, CMP #### [facility] [address] [place] [address] USAHypochromia LM Ql (Bld)Ordered By: Christian Carlos on 76-39-1595Pwbayikbvvf Ql (Bld)SlightThe Bellevue HospitalIron [Mass/volume] in Serum or PlasmaOrdered By: Christian Carlos on 59-02-0784Ezyu [Mass/Vol]139 ug/vWYbkkbk91-070VgkgpzhysThe Bellevue HospitalComment on above:Performed By: #### SCAN CBC, LDH, CMP #### [facility] [address] [place] [address] USAIron and TIBC Profileon 05-12-2025% Iron Moomahwija93.2 % Ifxeum00-07Xuf [facility] Physician GroupComment on above:Performed By: #### SCAN CBC, LDH, CMP #### [facility] [address] [place] [id number] USATotal Iron Binding Zoepkdir902 ug/pQNhjggt259-162Bsn St[address] [facility] Rehabilitation HospitalComment on above:Performed By: #### SCAN CBC, LDH, CMP #### [facility] [address] [place] [id number] USALeukocytes [#/volume] corrected for nucleated erythrocytes in Blood by Automated counOrdered By: Christian Carlos on 99-56-6881QKZ corrected for nucl RBC Auto (Bld) [#/Vol]24.7 10*3/uLHigh4.1-10.5FMemorial Health SystemLeukocytes [#/volume] in Blood by Automated countOrdered By: Christian Carlos on 81-75-4429HDY (Bld) [#/Vol]24.7 10*3/uLHigh4.1-10.5 The [facility] HospitalComment on above:Performed By: #### SCAN CBC, LDH, CMP #### [facility] [address] [place] [address] USALymphocytes [#/volume] in Blood by Automated countOrdered By: Christian Carlos on 50-24-9099Ghktdwvgelx (Bld) [#/Vol]18.5 10*3/uLHigh 1.00-4.8The [facility] HospitalComment on above:Performed By: #### SCAN CBC, LDH, CMP #### [facility] [address] [place] [address] USALymphocytes/100 leukocytes in Blood by Automated count Ordered By: Christian Carlos on 78-35-8580Dlbrvqkeizo/100 WBC (Bld)74.6 %Normal .The [facility]vue HospitalComment on above:Performed By: #### SCAN CBC, LDH, CMP #### [facility] [address] [place], [place] [address]H [Entitic mass] by Automated countOrdered By: Christian Carlos on 48-65-4117OCU (RBC) [Entitic mass]37.3 jbVrxm42.5-35.2FMemorial Health SystemComment on above:Performed By: #### SCAN CBC, LDH, CMP #### [facility] [address] [address] [place], [place] [address]HC Auto (RBC) [Mass/Vol]Ordered By: Christian Carlos on 05-92-6083LJXY (RBC) [Mass/Vol]33.5 g/dL32.5-35.6FMemorial Health SystemMCV [Entitic volume] by Automated countOrdered By: Christian Carlos on 72-02-8127UHO (RBC) [Entitic vol]111.3 zUApap03.5-101The Bellevue HospitalComment on above:Performed By: #### SCAN CBC, LDH, CMP #### [facility] [address] [place] [address] USAMicrocytes LM Ql (Bld)Ordered By: Christian Carlos on 79-03-9350Hfqxurdbur Ql (Bld)MarkedThe Bellevue HospitalMonocytes [#/volume] in Blood by Automated countOrdered By: Christian Carlos on 84-08-8734Jbhmrerra (Bld) [#/Vol]0.6 10*3/uLNormal0.0-0.8The Bellevue HospitalComment on above:Performed By: #### SCAN CBC, LDH, CMP #### [facility] [address] [place] [address] USAMonocytes/100 leukocytes in Blood by Automated count Ordered By: Christian Carlos on 01-33-9579Kfwsnbhhw/100 WBC (Bld)2.6 %Normal. The Bellevue HospitalComment on above:Performed By: #### SCAN CBC, LDH, CMP #### [facility] [address] [place] [address] USANeutrophils [#/volume] in Blood by Automated countOrdered By: Christian Carlos on 83-06-0467Gxobibvgpwz (Bld) [#/Vol]5.5 10*3/uLNormal 1.8-7.7FMemorial Health SystemComment on above:Performed By: #### SCAN CBC, LDH, CMP #### [facility] [address] [place] [id number] USANeutrophils/100 leukocytes in Blood by Automated count Ordered By: Christian Carlos on 36-54-2991Zmpcufzpwyy/100 WBC (Bld)22.4 %Normal .The Bellevue HospitalComment on above:Performed By: #### SCAN CBC, LDH, CMP #### [facility] [address] [place] [id number] USANo Panel InformationOrdered By: Christian Carlos on 15-94-7328Afmlknan Creatinine Clearance (Chem87.86The Bellevue HospitalNucleated erythrocytes [Presence] in Blood by Automated countOrdered By: Christian Carlos on 37-30-2218Poycffalu RBC Auto Ql (Bld)0.1 /100{WBC}0-0.5 The Bellevue HospitalPlatelet adequacy [Presence] in Blood by Light microscopyOrdered By: Christian Carlos on 12-02-8194Mkfjxkjnf LM Ql (Bld)Normal NormalThe Bellevue HospitalPlatelet mean volume [Entitic volume] in Blood by Automated countOrdered By: Christian Carlos on 53-06-9955Pdtnxnub mean volume (Bld) [Entitic vol]7.0 fLNormal6.6-10.1FMemorial Health System Comment on above:Performed By: #### SCAN CBC, LDH, CMP #### [facility] [address] [place] [address] USAPlatelet morphology finding [Identifier] in BloodOrdered By: Christian Carlos on 38-87-6869Bziismzf morphology finding Nom (Bld)Normal NormalThe Bellevue HospitalPlatelets [#/volume] in Blood by Automated countOrdered By: Christian Carlos on 74-60-8421Wbrqgffnn (Bld) [#/Vol]178 10*3/mRCxzrty257-011OvagkzreeThe Bellevue HospitalComment on above:Performed By: #### SCAN CBC, LDH, CMP #### [place] [address] USAPolychromasia [Presence] in Blood by Light microscopy Ordered By: Christian Carlos on 76-75-8870Gvyyxuibuqkco LM Ql (Bld)Moderate The Bellevue HospitalPotassium [Moles/volume] in Serum or Plasma Ordered By: Christian Carlos on 76-28-9571Vnessptcc [Moles/Vol]3.6 mmol/LNormal 3.5-5.1FMemorial Health SystemComment on above:Performed By: #### SCAN CBC, LDH, CMP #### [place] [address] USAProtein [Mass/volume] in Serum or PlasmaOrdered By: Christian Carlos on 05-56-7382Rgcidce [Mass/Vol]5.8 g/dLLow6.4-8.9The Bellevue HospitalComment on above:Performed By: #### SCAN CBC, LDH, CMP #### [facility] [address] [place] [address] USAScan and CBCon 38-86-6499JgupvfrwamrvmEqhopwXxpxkyOza Firelands Physician GroupComment on above:Performed By: #### SCAN CBC, LDH, CMP #### [place] [address] USAMean Corpuscular HGB Conc33.5 g/kDEalauk01.5-35.6The [facility] Physician GroupComment on above:Performed By: #### SCAN CBC, LDH, CMP #### [place] [address] USAMicrocytosisMarkedNoAshe Memorial Hospital Physician [facility] Comment on above:Performed By: #### SCAN CBC, LDH, CMP #### [place] [address] USANRBC%0.1 /100{WBC}Normal0-0.5The [facility] Comment on above:Performed By: #### SCAN CBC, LDH, CMP #### [place] [address] USAPlatelet EstimateNormalNormalNormAdventHealth Carrollwood Physician GroupComment on above:Performed By: #### SCAN CBC, LDH, CMP #### [place] [address] USAPlatelet MorphologyNormalNormalNoAshe Memorial Hospital Physician [facility] HospitalComment on above:Performed By: #### SCAN CBC, LDH, CMP #### [place] [address] USAPolychromasiaModerateNoAshe Memorial Hospital Physician [facility] Comment on above:Performed By: #### SCAN CBC, LDH, CMP #### [place] [address] USATear Drop CellsSlightNoAshe Memorial Hospital Physician [facility] Comment on above:Performed By: #### SCAN CBC, LDH, CMP #### [place] [address] USAWhite Blood Count24.7 [CFU]/mLHigh4.1-10.5The [facility] Physician GroupComment on above:Performed By: #### SCAN CBC, LDH, CMP #### [place] [address] USASerum globulin measurement by calculation (mass/volume) Ordered By: Christian Carlos on 77-36-4879Zdadhvqz (S) [Mass/Vol]1.6 g/dLNormal The Bellevue HospitalComment on above:Performed By: #### SCAN CBC, LDH, CMP #### [facility] [address] [place] [address] USASerum or plasma albumin/globulin mass ratioOrdered By: Christian Carlos on 75-01-5478Kdetylq/Globulin [Mass ratio]2.6 {ratio}Normal The Bellevue HospitalComment on above:Performed By: #### SCAN CBC, LDH, CMP #### [facility] [address] [place] [address] USASerum or plasma anion gap determinationOrdered By: Christian Carlos on 53-87-5448Ysxxk gap [Moles/Vol]7.3 mmol/LNormal6.0-15.0The Bellevue HospitalComment on above:Performed By: #### SCAN CBC, LDH, CMP #### [facility] [address] [place] [address] USASerum or plasma iron binding capacity measurement (mass/volume)Ordered By: Christian Carlos on 49-52-6022Lwmc binding capacity [Mass/Vol]301 ug/zM430-481BoqqvhzleKettering Health Behavioral Medical Centererum or plasma iron saturation measurement (mass fraction)Ordered By: Christian Carlos on 71-00-7232Wuyj saturation [Mass fraction]46.2 %20-50K[facility] Behavioral Medical Centerodium [Moles/volume] in Serum or PlasmaOrdered By: Christian Carlos on 83-58-3892Xzlwmx [Moles/Vol]142 mmol/YZbyjwg626-572AumactsewThe Bellevue HospitalComment on above:Performed By: #### SCAN CBC, LDH, CMP #### [facility] [address] [place] [id number] USATransferrin [Mass/volume] in Serum or PlasmaOrdered By: Christian Carlos on 88-96-0025Nhevsbdpwzl [Mass/Vol]215 mg/kUNgikbe684-831 The [facility] HospitalComment on above:Performed By: #### SCAN CBC, LDH, CMP #### [facility] [address] [place] [address] USAType and Screenon 38-31-2064JFF and Rh group Nom (Bld) Blood group O Rh(D) positiveNoAshe Memorial Hospital Physician GroupComment on above: Result Comment: PERFORMED BY: [place] [address] PATHOLOGIST AUTO MECHANIC SUPERVISOR DANIELLE QUINONES M.D.US spleenon 67-07-9381TK spleenPARKWOOD HOS[facility]ITAL [place] [address] [place], [place] [address] Ultrasound Report Signed Patient: Darius Valera MR#: [id number] 10 : 1960 Acct:[id number] Age/Sex: 64 / M ADM Date: 05/12/25 Loc: Room: Type: [facility] Attending Dr: Christian Carlos II, DO Ordering [...] Curry M.D. 05/12/2025 1:08 PM Dictation Location: [place] [address] Tech: Caterina Aguirre Transcribed By: [facility] 05/12/25 1308 Dictated By: Joey Curry DO 05/12/25 1303 Signed By: 05/12/25 1308NoAshe Memorial Hospital Physician GroupUrea nitrogen [Mass/volume] in Serum or PlasmaOrdered By: Christian Carlos on 58-30-6432Odka nitrogen [Mass/Vol]20 mg/dLNormal03-18The Bellevue HospitalComment on above: Performed By: #### SCAN CBC, LDH, CMP #### [facility] [address] [place] [address] USAVit. B12/Folate Profileon 05-79-8855Mdloib34.3 ng/mLNormal >5.9The [facility] Physician GroupComment on above:Result Comment: Folate reference range: >5.9 ng/ml The WHO technical consultation on folate and vitamin b12 deficiencies has determined that folate concentrations less than 4 ng/ml are considered deficient. PERFORMED BY: [facility] [address] [place] [address] PATHOLOGIST AUTO MECHANIC SUPERVISOR DANIELLE QUINONES M.D.Performed By: #### SCAN CBC, LDH, CMP #### [facility] [address] [place] [address] USAVitamin B12 ser/plasOrdered By: Christian Carlos on 70-25-5343Bwotzlwrp (Vitamin B12) [Mass/Vol]492 pg/fDVxllvo592-639KzvuwplubThe Bellevue HospitalComment on above:Performed By: #### SCAN CBC, LDH, CMP #### [facility] [address] [place] [address] USAALL SED RATEon 92-54-2452HOU SED RATE<1NINFNONorthwest Medical Center CLINISYNCNOMO HealthcareCNOVon 43-45-2486MCYAGotqkv Visit (CARDPATRICE) DARIUS VALERA ([id number]) 1960 M Date Time Provider Department 04/04/25 2:30 PM ITA TUTTLE During your visit today, we recorded the following information about you: Pulse Blood pressure Weight Height 76/minute 132/88 88.6 kg 1.829 m Ita Tuttle MD 04/04/2025 2:57 PM Signed [facility] [place] Sissy Zepeda Department of Cardiovascular Medicine SECTION [...] male here today for follow up from [place], [place]. Has h/o AF s/p ablation, HTN, DMITRY, tachycardia induced CMP, and CHF. On Eliquis, Nifedipine XL, Valsartan/HCTZ added on Doxazosin. Doxazocin increased to 2 mg but has been using only 1 mg daily. Continue to have BP spikes above 150s. Sotalol was discontinued. He followed before with a local operating cost clerk Dr Hooks. Since last visit denies chest [...] Creatinine (POCT) (mg/dL) Date Value 03/22/2022 0.90 (more content not included)...NormalThe Christ HospitalECG COMPLETEon 84-42-3658Cklvhg Pjhk93LLHRyljercaa ClinicCalculated P Mlrw69uszdzvsBggtcanjm ClinicCalculated R Ccts7czrllqtAxlckkpvb ClinicCalculated T Pymz07jcxscdy White HospitalP-R Tftnaius046 msCleveland ClinicQRS Iestvttc65 msCleveland ClinicQT Shcfldjx801 msCleveland ClinicQTC Calculation (Bazett)425 msCleveland ClinicVentricular Seta39IRCNolbnsfer ClinicNORMAL SINUS RHYTHM NORMAL ECG Confirmed by JADE DAS MD ([id number]) on 04/04/2025 5:11:38 PMHEART AND VASCULAR INSTITUTENAME : DARIUS VALERA PID : [id number] : 1960 Gender : Male Race : ORD : Procedure Date : Apr 04 2025 14:34:56 Edit Date : Apr 04 2025 17:11:41 Diagnosis: NORMAL SINUS RHYTHM NORMAL ECG Confirmed by JADE DAS MD ([id number]) on 04/04/2025 5:11:38 PM Test Reason : Location : 192 : AVCRD Overread By : JADE DAS MD Edited By : JADE DAS MD Referred By : , Acquired by : ,HEART AND VASCULAR INSTITUTEWhite HospitalECG01on 04-04-2025 XXM18Paynpwvwkoa Rate : 76 BPM Atrial Rate : 76 BPM P-R Interval : 178 ms QRS Duration : 86 ms Q-T Interval : 378 ms QTC Calculation(Bazett) : 425 ms Calculated P [place] : 13 degrees Calculated R [place] : 0 degrees Calculated T [place] : 18 degrees NORMAL SINUS RHYTHM NORMAL ECG Confirmed by JADE DAS MD ([id number]) on 04/04/2025 5:11:38 PM NAME : DARIUS VALERA PID : [id number] : 1960 Gender : Male Race : ORD : Procedure Date : Apr 04 2025 14:34:56 Edit Date : Apr 04 2025 17:11:41 Diagnosis: NORMAL SINUS RHYTHM NORMAL ECG Confirmed by JADE DAS MD ([id number]) on 04/04/2025 5:11:38 PM Test Reason : Location : 192 : AVCRD Overread By : JADE DAS MD Edited By : JADE DAS MD Referred By : , Acquired by : ,NormalThe Christ HospitalHEMOGLOBIN A1con 98-48-6468WqP1x (Bld) [Mass fraction]%Normal<5.7Quest DiagnosticsComment on above:Result Comment: Verified by repeat analysis. For the [...] diagnosis of diabetes in children. According to [place] Diabetes Association (ADA) guidelines, hemoglobin A1c <7.0% represents optimal control in non- diabetic patients. Different metrics may apply to specific patient populations. Standards of Medical Care in Diabetes(ADA).Performed By: #### 1043, 80299, 35660, 496, 7600 #### [facility] [address], [address] [place] [phone] [employer] Operator: Memo Marquis MDLIPID PANEL, STANDARDon 03-83-3819Cznfoknxizn [Mass/Vol]140 mg/dLNormal<200Quest DiagnosticsComment on above:Order Comment: FASTING:YES FASTING: YESPerformed By: #### 2381, 41289, 22308, 496, 7600 #### [facility] [address], [address] [employer] Operator: Memo HANKSholesterol in HDL [Mass/Vol]67 mg/dLNormal> OR = 40Quest DiagnosticsComment on above:Order Comment: FASTING:YES FASTING: YESPerformed By: #### 5363, 99922, 91461, 496, 7600 #### [facility] [address], [address] [place] [address] [employer] Operator: Memo HANKSholesterol in LDL [Mass/Vol]60 mg/dLNormal Quest DiagnosticsComment on above:Order Comment: FASTING:YES FASTING: YESResult Comment: Reference range: <100 Desirable range <100 mg/dL for primary prevention; <70 mg/dL for patients with CHD or diabetic patients with > or = 2 CHD risk factors. LDL-C is now calculated using the Fely calculation, which is a validated novel method providing better accuracy than the Friedewald equation in the estimation of LDL-C. Hilario VALDIVIA et al. ARNULFO. 2013;310(19): 1017-2813 (http://education.SeatMe.Sarsys/faq/YFG060)Performed By: #### 5363, 46979, 49942, 496, 7600 #### [facility] [address], [address] [place] [address] [employer] Operator: Memo Becerra.total/Cholesterol in HDL [Mass ratio]2.1 {ratio}Normal<5.0Quest DiagnosticsComment on above:Order Comment: FASTING:YES FASTING: YESPerformed By: #### 5363, 72670, 06046, 496, 7600 #### [facility] [address], [address] [place] [address] [employer] Operator: Memo SAUCEDA HDL BLTQQBAEELB72 mg/dL (calc)Normal<130 Quest DiagnosticsComment on above:Order Comment: FASTING:YES FASTING: YESResult Comment: For patients with diabetes plus 1 major ASCVD risk factor, treating to a non-HDL-C goal of <100 mg/dL (LDL-C of <70 mg/dL) is considered a therapeutic option.Performed By: #### 5363, 99839, 26942, 496, 7600 #### [facility] [place] [address] [employer] Operator: Memo Marquis MDTriglyceride [Mass/Vol]53 mg/dLNormal<150Quest DiagnosticsComment on above:Order Comment: FASTING:YES FASTING: YESPerformed By: #### 5363, 05696, 01425, 496, 7600 #### [facility] [address], [address] [place] [address] [employer] Operator: Memo GAMINGSA, TOTALon 03-36-9896ZIF, TOTAL0.62 ng/mL Normal< OR = 4.00Quest DiagnosticsComment on above:Result Comment: The total PSA value from this assay system is standardized against the WHO standard. The test result will be approximately 20% lower when compared to the equimolar-standardized total PSA (Harjit Houston). Comparison of serial PSA results should be interpreted with this fact in mind. This test was performed using the Siemens chemiluminescent method. Values obtained from different assay methods cannot be used interchangeably. PSA levels, regardless of value, should not be interpreted as absolute evidence of the presence or absence of disease.Performed By: #### 5363, 21944, 22406, 496, 7600 #### [facility] [address], [address] [place] [address] [employer] Operator: Memo Marquis MDTSH W/REFLEX TO FT4on 74-04-2021SIE W/REFLEX TO FT40.97 mIU/LNormal0.40-4.50Quest DiagnosticsComment on above:Performed By: #### 5363, 66716, 38165, 496, 7600 #### [facility] [address], [address] [place] [address] [employer] Operator: Memo Marquis MDVITAMIN D,25-OH,TOTAL,IAon 66-27-5778HNHWMKQ D,25-OH,TOTAL,IA58 ng/eVBuwlwy66-226Ixion DiagnosticsComment on above:Result Comment: Vitamin D Status 25-OH Vitamin D: Deficiency: <20 ng/mL Insufficiency: 20 - 29 ng/mL Optimal: > or = 30 ng/mL For 25-OH Vitamin D testing on patients on D2-supplementation and patients for whom quantitation of D2 and D3 fractions is required, the QuestAssureD(TM) 25-OH VIT D, (D2,D3), LC/MS/MS is recommended: order code 39989 (patients >2yrs). See Note 1 Note 1 For additional information, please refer to http://education.SeatMe.Sarsys/faq/LRG280 (This link is being provided for informational/ educational purposes only.)Performed By: #### 5368, 53805, 50694, 496, 7600 #### [facility] [address], [address] [place] [phone] [employer] Operator: Memo Marquis MDPATHOLOGY REQUEST FOR LAB CORPon 02-15-2025 PATHOLOGY REQUEST FOR LAB [facility] HealthcareComment on above:See report. Scanned copy available in EMR.[facility] Springs Medical CenterAlanine aminotransferase [Enzymatic activity/volume] in Serum or Plasmaon 91-49-2805GJM [Catalytic activity/Vol]31 U/LNormal7-52NOMO HealthcareComment on above:Performed By: #### SCAN CBC, LDH, CMP #### [facility] [address] [place] [address] USAAlbumin [Mass/volume] in Serum or Plasma by Bromocresol green (BCG) dye binding methoOrdered By: Christian Carlos on 40-70-6761Meilkxc BCG dye [Mass/Vol]4.7 g/dL3.5-5.7FMemorial Health SystemAlkaline phosphatase [Enzymatic activity/volume] in Serum or Plasmaon 24-10-1407XWH [Catalytic activity/Vol]88 U/VYauuon08-866LTHN HealthcareComment on above: Performed By: #### SCAN CBC, LDH, CMP #### [facility] [address] [place] [address] USAAnisocytosis [Presence] in Blood by Light microscopy Ordered By: Christian Carlos on 13-36-0256Utzacchdkyer Ql (Bld)SlightNormal The Bellevue HospitalComment on above:Performed By: #### SCAN CBC, LDH, CMP #### [facility] [address] [place] [address] USAAspartate aminotransferase [Enzymatic activity/volume] in Serum or Plasmaon 22-32-6945ZCY [Catalytic activity/Vol]38 U/KQwzucp02-38XKBW HealthcareComment on above:Performed By: #### SCAN CBC, LDH, CMP #### [facility] [address] [place] [address] USABasophils Auto (Bld) [#/Vol]Ordered By: Christian Carlos on 79-10-5835Zrijalfxy (Bld) [#/Vol]N/[facility] Basophils/100 WBC Auto (Bld)Ordered By: Christian Carlos on 02-10-2025 Basophils/100 WBC (Bld)N/[facility] HospitalBilirubin.total [Mass/volume] in Serum or Plasmaon 19-02-9275Mwzdsstab [Mass/Vol]1.9 mg/dLHigh 0.3-1.0NOMO HealthcareComment on above:Samples from patients who have taken Naproxen have shown spurious elevation in Total Bilirubin levels. A metabolite of Naproxen, O-desmethylnaproxen, has been shown to interfere with the Jendrassik-Grof method for measuring Total Bilirubin. Samples from patients who have taken Naproxen have shown spurious elevation in Total Bilirubin levels. A metabolite of Naproxen, O-desmethylnaproxen, has been shown to interfere with the Jendrassik-Grof method for measuring Total Bilirubin.Result Comment: Samples from patients who have taken Naproxen have shown spurious elevation in Total Bilirubin levels. A metabolite of Naproxen, O-desmethylnaproxen, has been shown to interfere with the Jendrassik-Grof method for measuring Total Bilirubin.Performed By: #### SCAN CBC, LDH, CMP #### [facility] [address] [place] [address] USACOAGULATION PROFILEon 46-86-3017zUMD Coag (Bld) [Time]30.1 s25.1 - 36.5 [facility] HealthcareComment on above:A hematocrit value greater than 55% may lead to inaccurate results in coagulation testing. Patients having hematocrit values >55% require a special collection tube for coagulation studies. Please contact the laboratory at [phone] for redraw instructions. INR Coag (PPP) [Relative time]1 {INR}[facility] HealthcareComment on above:INR Therapeutic Range A) Pre- and Peroperative OAT [...] valves: 3 - 4.5 PT Coag (PPP) [Time]11.1 s9.0 - 12.9 [facility] HealthcareComment on above:A hematocrit value greater than 55% may lead to inaccurate results in coagulation testing. Patients having hematocrit values >55% require a special collection tube for coagulation studies. Please contact the laboratory at [phone] for redraw instructions. STAT FOR CTFIRELANDSCT guided bone marrow bx/aspiron 08-08-7068DS guided bone marrow bx/aspirPARK[place] [address] CT Scan Report Signed Patient: Darius Valera MR#: [id number] 10 : 1960 Acct:[id number] Age/Sex: 64 / M ADM Date: 02/10/25 Loc: CT Room: Type: [facility] Attending Dr: Christian Carlos II [...] Jr., D.OCarrie 02/10/2025 11:08 AM Dictation Location: [place] [address] Transcribed By: [facility] 02/10/25 1108 Dictated By: Garcia Vanegas Jr, DO 02/10/25 1102 Signed By: 02/10/25 1108NormAdventHealth Carrollwood Physician GroupCalcium [Mass/volume] in Serum or Plasmaon 67-31-9151Rdrudxg [Mass/Vol]9.3 mg/dLNormal8.6-10.3NOMS Healthcare Comment on above:Performed By: #### SCAN CBC, LDH, CMP #### [facility] [address] [place] [address] USACarbon dioxide, total [Moles/volume] in Serum or Plasmaon 61-84-9004MQ8 [Moles/Vol]28.6 mmol/BHwmpsn32.0-31.0NOMS HealthcareComment on above:Performed By: #### SCAN CBC, LDH, CMP #### [facility] [address] [place] [address] USAChloride [Moles/volume] in Serum or Plasmaon 02-10-2025 Chloride [Moles/Vol]106 mmol/TWrpnra66-918QTAD HealthcareComment on above: Performed By: #### SCAN CBC, LDH, CMP #### [facility] [address] [place] [address] USACoagulation Profileon 26-51-9217zNLM Coag (Bld) [Time]30.1 fIvvqlt46.1-36.5The [facility] Physician GroupComment on above:Order Comment: STAT FOR CTResult Comment: A hematocrit value greater than 55% may lead to inaccurate results in coagulation testing. Patients having hematocrit values >55% require a special collection tube for coagulation studies. Please contact the laboratory at [phone] for redraw instructions. PERFORMED BY: [place] [address] PATHOLOGIST AUTO MECHANIC SUPERVISOR DANIELLE QUINONES M.D.Performed By: #### SCAN CBC, LDH, CMP #### [facility] [address] [place], [place] [address] USAComprehensive Metabolic Panelon 32-22-3659Mclrsuc [Mass/Vol]4.7 g/dLNormal3.5-5.7NOMS HealthcareComment on above:Performed By: #### SCAN CBC, LDH, CMP #### [facility] [address] [place] [address] USACREATININE CLR CALC BOWKEDWT94.99NormalNOMS Healthcare Comment on above:Result Comment: PERFORMED BY: [place] [id number] PATHOLOGIST AUTO MECHANIC SUPERVISOR DANIELLE QUINONES M.D.Performed By: #### SCAN CBC, LDH, CMP #### [facility] [address] [place], [place] [address] USAGFR/1.73 sq M.predicted MDRD (S/P/Bld) [Vol rate/Area] mL/min/{1.73_m2}NormalThe [facility] Physician GroupComment on above:Performed By: #### SCAN CBC, LDH, CMP #### [place] [id number] USAComprehensive metabolic panelon 47-98-2265Dmkabemtzp (U) [Mass/Vol]0.86 mg/dL0.70 - 1.30 mg/dLNOMS HealthcareESTIMATED GFRNOMS Healthcare Globulin (S) [Mass/Vol]2 g/dLNOMS HealthcareInterpretation and review of laboratory resultsAbnormalNOMS HealthcareCreatinine [Mass/volume] in Serum or PlasmaOrdered By: Christian Carlos on 42-33-3165Ilwbfokjyn [Mass/Vol]0.86 mg/dL Normal0.70-1.30The [facility]vue HospitalComment on above:Performed By: #### SCAN CBC, LDH, CMP #### [place] [address] USADacrocytes [Presence] in Blood by Light microscopyOrdered By: Christian Carlos on 46-35-6732Uxstjjisxp LM Ql (Bld)SlightThe Bellevue HospitalDiff and CBCon 69-85-9566Tmml Corpuscular HGB Conc35.2 g/nPPbzilu38.5-35.6[facility] Physician GroupComment on above:Performed By: #### SCAN CBC, LDH, CMP #### [place] [address] USAOvalocytesSLake Norman Regional [facility] Center Physician GroupComment on above:Performed By: #### SCAN CBC, LDH, CMP #### [place] [address] USAPlatelet EstimateNormalNormalNormAdventHealth Carrollwood Physician GroupComment on above:Performed By: #### SCAN CBC, LDH, CMP #### [place] [address] USAPlatelet MorphologyNormalNormalNoAshe Memorial Hospital Physician GroupComment on above:Result Comment: PERFORMED BY: [place] [address] PATHOLOGIST AUTO MECHANIC SUPERVISOR DANIELLE QUINONES M.D.Performed By: #### SCAN CBC, LDH, CMP #### [place] [address] USAPoikilocytosisSLake Norman Regional Medical Center Physician South [facility] Comment on above:Performed By: #### SCAN CBC, LDH, CMP #### [place] [address] USAPolychromasiaSLake Norman Regional Medical Center Physician [facility] Comment on above:Performed By: #### SCAN CBC, LDH, CMP #### [place] [address] USATear Drop CellsSlightNormWood County Hospitale [facility] Comment on above:Performed By: #### SCAN CBC, LDH, CMP #### [facility] [address] [place] [address] USAWhite Blood Count20.7 [CFU]/mLHigh4.1-10.5The [facility] Physician GroupComment on above:Performed By: #### SCAN CBC, LDH, CMP #### [facility] [address] [place] [address] USAEosinophils Auto (Bld) [#/Vol]Ordered By: Christian Carlos on 24-32-5636Ftxyqnvxkur (Bld) [#/Vol]N/[facility] HospitalEosinophils/100 WBC Auto (Bld)Ordered By: Christian Carlos on 02-10-2025 Eosinophils/100 WBC (Bld)N/[facility] HospitalEosinophils/100 leukocytes in Blood by Manual countOrdered By: Christian Carlos on 02-10-2025 Eosinophils/100 WBC (Bld)1 %Normal1-3FMemorial Health SystemComment on above:Performed By: #### SCAN CBC, LDH, CMP #### [facility] [address] [place] [address] USAErythrocyte distribution width [Ratio] by Automated count Ordered By: Christian Carlos on 05-06-2954Pvfdsdehiat distribution width (RBC) [Ratio]13.4 %Yynbig35.0-14.8The Bellevue HospitalComment on above: Performed By: #### SCAN CBC, LDH, CMP #### [facility] [address] [place] [address] USAErythrocyte morphology finding [Identifier] in Blood Ordered By: Christian Carlos on 18-06-1439DLM morphology finding Nom (Bld)N/A The Bellevue HospitalErythrocytes [#/volume] in Blood by Automated countOrdered By: Christian Carlos on 87-34-2483YEV (Bld) [#/Vol]3.98 10*6/uL Normal3.90-5.60The Bellevue HospitalComment on above:Performed By: #### SCAN CBC, LDH, CMP #### [facility] [address] [place] [address] USAFree K+L LT Chains, Qn, Son 28-41-1503Rlxn [place] Light Chains, S16.3 mg/LNormal3.3-19.4The [facility] Physician GroupComment on above: Performed By: #### SPE, KAPPA, JIGAR SERUM #### [facility] ,Free Lambda Light Chains, S10.6 mg/LNormal5.7-26.3The [facility] Comment on above:Performed By: #### SPE, KAPPA, JIGAR SERUM #### [facility] ,[place]/Lambda Ratio, S1.21Qnreod2.26-1.65The [facility] Hospital Physician GroupComment on above:Result Comment: Performed at: [facility] [address] [id number] Finish Grinder: Chad Mccall PhD, Phone: [phone] PERFORMED BY: [place] [address] PATHOLOGIST AUTO MECHANIC SUPERVISOR DANIELLE QUINONES M.D.Performed By: #### SPE, KAPPA, JIGAR SERUM #### [facility] ,Glucose [Mass/volume] in Serum or Plasmaon 74-91-4922Vdhvubt [Mass/Vol]106 mg/aHTmbz92-311OBMN HealthcareComment on above:Random Glucose Reference Range is dependent on time and content of last meal. Glucose of more than 200 mg/dL in a nonstressed, ambulatory subject supports the diagnosis of Diabetes Mellitus. ADA recommended reference range ADA recommended reference rangeRandom Glucose Reference Range is dependent on time and content of last meal. Glucose of more than 200 mg/dL in a nonstressed, ambulatory subject supports the diagnosisof Diabetes Mellitus.Result Comment: Random Glucose Reference Range is dependent on time and content of last meal. Glucose of more than 200 mg/dL in a nonstressed, ambulatory subject supports the diagnosis of Diabetes Mellitus. ADA recommended reference rangePerformed By: #### SCAN CBC, LDH, CMP #### [facility] [address] [place] [id number] USAHematocrit [Volume Fraction] of Blood by Automated count Ordered By: Christian Carlos on 96-08-8943Qrhizjeqwz (Bld) [Volume fraction] 38.6 %Low38.8-50.0The Bellevue HospitalComment on above:Performed By: #### SCAN CBC, LDH, CMP #### [facility] [address] [place] [id number] USAHemoglobin [Mass/volume] in BloodOrdered By: Christian Carlos on 80-98-3551Ymskfdbrdd (Bld) [Mass/Vol]13.6 g/dZLprtzf43.0-17.0 The [facility] HospitalComment on above:Performed By: #### SCAN CBC, LDH, CMP #### [facility] [address] [place] [address] USAINR in Platelet poor plasma by Coagulation assayOrdered By: Christian Carlos on 43-26-3443NSH Coag (PPP) [Relative time]1.0 {INR}Normal The Bellevue HospitalComment on above:INR Therapeutic Range A) Pre- and Peroperative OAT started two weeks before surgery. NOT HIP SURGERY: 1.5 - 2.5 HIP SURGERY: 2 - 3B) Primary and secondary prevention of venous THROMBOSIS: 2 - 3C) Active venous thrombosis, pulmonary embolismand prevention of recurrent venous thrombosis: 2 - 3D) Prevention of arterial thromboembolismincluding patients with mechanical heart valves: 3 - 4.5Order Comment: STAT FOR CTResult Comment: INR Therapeutic Range A) Pre- and [...] patients with mechanical heart valves: 3 - 4.5Performed By: #### SCAN CBC, LDH, CMP #### [facility] [address] [place] [address] USAImmunofixation,Serumon 43-48-5148Mjvragwvivrfgw, Serum CommentNormal.The [facility] Physician GroupComment on above:Result Comment: No monoclonality detected.Performed By: #### SPE, KAPPA, JIGAR SERUM #### [facility] ,Immunoglobulin A, Vqckj780 mg/cVNeaunq51-465Mbv [facility] Comment on above:Performed By: #### SPE, KAPPA, JIGAR SERUM #### [facility] ,Immunoglobulin G714 mg/bZYcprwk949-4830Qag [facility] Physician GroupComment on above:Performed By: #### SPE, KAPPA, JIGAR SERUM #### [facility] ,Immunoglobulin M, Serum24 mg/jQCpilnk34-402Rqv [facility] Physician GroupComment on above:Result Comment: Result confirmed on concentration. Performed at: [address] [id number] Finish Grinder: Chad Mccall PhD, Phone: [phone] By: #### SPE, KAPPA, JIGAR SERUM #### [facility] ,Leukocytes [#/volume] corrected for nucleated erythrocytes in Blood by Automated counOrdered By: Christian Carlos on 75-23-2674QJI corrected for nucl RBC Auto (Bld) [#/Vol]20.7 10*3/uLHigh4.1-10.5FMemorial Health System Leukocytes [#/volume] in Blood by Automated countOrdered By: Christian Carlos on 86-00-0327TVC (Bld) [#/Vol]20.7 10*3/uLHigh4.1-10.5FMemorial Health SystemComment on above:Performed By: #### SCAN CBC, LDH, CMP #### [facility] [address] [place] [address] USALymphocytes Auto (Bld) [#/Vol]Ordered By: Christian Carlos on 29-16-5169Tfmpmimtxph (Bld) [#/Vol]N/[facility] Memorial HospitalLymphocytes/100 WBC Auto (Bld)Ordered By: Christian Carlos on 02-10-2025 Lymphocytes/100 WBC (Bld)N/[facility] Memorial HospitalLymphocytes/100 leukocytes in Blood by Manual countOrdered By: Christian Carlos on 02-10-2025 Lymphocytes/100 WBC (Bld)69 %Ydta61-28RcaeazjlhThe Bellevue HospitalComment on above:Performed By: #### SCAN CBC, LDH, CMP #### [facility] [address] [Entitic mass] by Automated countOrdered By: Christian Carlos on 18-65-6624GFM (RBC) [Entitic mass]34.2 enZzpxik95.5-35.2FMemorial Health SystemComment on above:Performed By: #### SCAN CBC, LDH, CMP #### [facility] [address] Auto (RBC) [Mass/Vol]Ordered By: Christian Carlos on 20-49-7325PZXC (RBC) [Mass/Vol]35.2 g/dL32.5-35.6FMemorial Health SystemMCV [Entitic volume] by Automated countOrdered By: Christian Carlos on 67-30-6802IGO (RBC) [Entitic vol]97.2 dCDgnrrz29.5-101The [facility] HospitalComment on above:Performed By: #### SCAN CBC, LDH, CMP #### [place] [address] USAMonocytes Auto (Bld) [#/Vol]Ordered By: Christian Carlos on 15-32-0553Aiveufanb (Bld) [#/Vol]N/[facility] Monocytes/100 WBC Auto (Bld)Ordered By: Christian Carlos on 02-10-2025 Monocytes/100 WBC (Bld)NWood County HospitalMonocytes/100 leukocytes in Blood by Manual countOrdered By: Christian Carlos on 02-10-2025 Monocytes/100 WBC (Bld)5 %Normal2-11The [facility] HospitalComment on above:Performed By: #### SCAN CBC, LDH, CMP #### [place] [address] USANeutrophils Auto (Bld) [#/Vol]Ordered By: Christian Carlos on 63-50-9048Elpdwihiprb (Bld) [#/Vol]N/[facility] Memorial HospitalNeutrophils/100 WBC Auto (Bld)Ordered By: Christian Carlos on 02-10-2025 Neutrophils/100 WBC (Bld)N/[facility] Memorial HospitalNo Panel InformationOrdered By: Chrsitian Carlos on 69-85-0736Qxmrrtpnlmdqm Pathology TestSee commentThe Bellevue HospitalComment on above:See report. Scanned copy available in EMR.Estimated GFR (CKD-EPI)> 60.0 mL/MinThe Bellevue HospitalPharmacy Creatinine Clearance (Chem93.99The [facility]vue HospitalProtein Electrophoresis M-SpikeNot observed g/dLNot ObservedThe Bellevue HospitalProtein Electrophoresis NoteComment. The Bellevue HospitalComment on above:Protein electrophoresis scan will follow via computer,mail, or general utility worker delivery.No Panel Informationon 74-63-0829HAVX HealthcareNucleated erythrocytes [Presence] in Blood by Automated countOrdered By: Christian Carlos on 27-40-6790Fcamojeas RBC Auto Ql (Bld)N/A The [facility] HospitalOvalocytes [Presence] in Blood by Light microscopyOrdered By: Christian Carlos on 04-75-7833Shsydxjshk LM Ql (Bld) SlightThe Bellevue HospitalPathology Request for Lab Corpon 41-62-8729Jkeitepte Request for Lab CorpHCA [facility] Comment on above:Result Comment: See report. Scanned copy available in EMR. PERFORMED BY: [facility] [address] [place] [address] PATHOLOGIST AUTO MECHANIC SUPERVISOR DANIELLE QUINONES M.D.Performed By: #### SCAN CBC, LDH, CMP #### [place] [address] USAPlatelet adequacy [Presence] in Blood by Light microscopy Ordered By: Christian Carlos on 84-85-9508Frzbchafw LM Ql (Bld)NormalNormal The Bellevue HospitalPlatelet mean volume [Entitic volume] in Blood by Automated countOrdered By: Christian Carlos on 45-45-1208Qbyyszjd mean volume (Bld) [Entitic vol]7.4 fLNormal6.6-10.1FMemorial Health System Comment on above:Result Comment: PERFORMED BY: [place] [address] PATHOLOGIST AUTO MECHANIC SUPERVISOR DANIELLE QUINONES M.D.Performed By: #### SCAN CBC, LDH, CMP #### [facility] [address] [place] [address] USAPlatelet morphology finding [Identifier] in BloodOrdered By: Christian Carlos on 64-47-7287Beiqpcfa morphology finding Nom (Bld)Normal NormalThe Bellevue HospitalPlatelets [#/volume] in Blood by Automated countOrdered By: Christian Carlos on 16-85-2204Mobjsonly (Bld) [#/Vol]158 10*3/aPTxwjne861-085VhqmluolbThe Bellevue HospitalComment on above:Performed By: #### SCAN CBC, LDH, CMP #### [place] [address] USAPoikilocytosis [Presence] in Blood by Light microscopy Ordered By: Christian Carlos on 76-46-0651Dkeisrzgpavrmv LM Ql (Bld)[facility] CenterPolychromasia [Presence] in Blood by Light microscopyOrdered By: Christian Carlos on 07-02-3830Zerbxakycmlky LM Ql (Bld) [facility] HospitalPotassium [Moles/volume] in Serum or Plasmaon 06-56-9897Kfgqwrfmt [Moles/Vol]3.8 mmol/LNormal3.5-5.1NOMS Healthcare Comment on above:Performed By: #### SCAN CBC, LDH, CMP #### [facility] [address] [place] [address] USAProtein Electrophoresis, Serumon 02-10-2025 Vtsak-2-Emwcrkdp0.3 g/dLNormal0.0-0.4The [facility] Physician GroupComment on above:Performed By: #### SPE, KAPPA, JIGAR SERUM #### [facility] ,Sgniv-9-Wfqlakbf5.5 g/dLNormal0.4-1.0The [facility] Physician GroupComment on above:Performed By: #### SPE, KAPPA, JIGAR SERUM #### [facility] ,Beta Globulin0.9 g/dLNormal0.7-1.3The [facility] Physician GroupComment on above:Performed By: #### SPE, KAPPA, JIGAR SERUM #### [facility] ,Gamma Globulin0.7 g/dLNormal0.4-1.8The [facility] Physician GroupComment on above:Performed By: #### SPE, KAPPA, JIGAR SERUM #### [facility] ,M-SpikeNot ObservedNormalNot ObservedThe [facility] Physician [facility] HospitalComment on above:Performed By: #### SPE, KAPPA, JIGAR SERUM #### [facility] ,SPE-NoteCommentNormal.The [facility] Physician GroupComment on above:Result Comment: Protein electrophoresis scan will follow via computer, mail, or general utility worker delivery.Performed By: #### SPE, KAPPA, JIGAR SERUM #### [facility] ,Protein [Mass/volume] in Serum or Plasmaon 31-57-6647Xtuljkz [Mass/Vol]6.7 g/dL Normal6.4-8.9[facility] Springs Medical CenterComment on above:Performed By: #### SCAN CBC, LDH, CMP #### [facility] [address] [place] [address] USAProthrombin time (PT)Ordered By: Christian Carlos on 93-53-9230TM Coag (PPP) [Time]11.1 sNormal9.0-12.9The [facility] HospitalComment on above:A hematocrit value greater than 55% may lead to inaccurate results in coagulation testing. Patientshaving hematocrit values >55% require a special collection tube for coagulation studies. Please contact the laboratory at [phone] for redraw instructions.Order Comment: STAT FOR CT Result Comment: A hematocrit value greater than 55% may lead to inaccurate results in coagulation testing. Patients having hematocrit values >55% require a special collection tube for coagulation studies. Please contact the laboratory at [phone] for redraw instructions.Performed By: #### SCAN CBC, LDH, CMP #### [facility] [address] [place] [address] USASegmented neutrophils/100 leukocytes in Blood by Manual countOrdered By: Christian Carlos on 07-49-9415Wjypmjpif neutrophils/100 WBC (Bld)25 %Rbx92-02XzsgigcavThe Bellevue HospitalComment on above:Performed By: #### SCAN CBC, LDH, CMP #### [facility] [address] [place] [address] USASerum free kappa light chain measurementOrdered By: Christian Carlos on 73-21-6138Gybdtdkwrzfori light chains.kappa.free (S) [Mass/Vol]16.3 mg/L3.3-19.4FMercy Health Clermont Hospitalerum globulin measurement (mass/volume)Ordered By: Christian Carlos on 87-98-7967Kbsfyaux (S) [Mass/Vol]2.3 g/dLNormal2.2-3.9The [facility] HospitalComment on above:Performed By: #### SPE, KAPPA, JIGAR SERUM #### [facility] ,Serum globulin measurement by calculation (mass/volume)Ordered By: Christian Carlos on 22-89-8420Jlkhhnaa (S) [Mass/Vol]2.0 g/dLNormalThe Bellevue HospitalComment on above:Performed By: #### SCAN CBC, LDH, CMP #### [facility] [address] [place] [address] USASerum immunoglobulin free kappa light chains/immunoglobulin free lambda light chainsOrdered By: Christian Carlos on 75-82-5940Ofqelryhzrezcu light chains.kappa.free/Immunoglobulin light chains.lambda.free (S) [Mass ratio]1.540.26-1.65The [facility] HospitalComment on above:Performed at: [facility] [address] [id number] Director: Chad Mccall PhD, Phone: [phone] or plasma IgA measurement (mass/volume)Ordered By: Christian Carlos on 23-01-3656HlV [Mass/Vol]146 mg/dZ21-949TliubcekcKettering Health Behavioral Medical Centererum or plasma IgG measurement (mass/volume)Ordered By: Christian Carlos on 02-10-2025 IgG [Mass/Vol]714 mg/rE630-0888LmidqrlstKettering Health Behavioral Medical Centererum or plasma IgM measurement (mass/volume)Ordered By: Christian Carlos on 60-79-0193PjW [Mass/Vol]24 mg/uA87-683DiuddcfnhThe Bellevue HospitalComment on above:Result confirmed on concentration.Performed at: [employer] [address] Director: Chad Mccall PhD, Phone: [phone] or plasma albumin measurement (mass/volume)Ordered By: Christian Carlos on 34-24-9274Hduobhw [Mass/Vol]4.0 g/dLNormal2.9-4.4FMemorial Health SystemComment on above:Performed By: #### SPE, KAPPA, JIGAR SERUM #### [facility] ,Serum or plasma albumin/globulin mass ratioon 98-55-7210Czajhyy/Globulin [Mass ratio]2.4 {ratio}NormalExcelsior Springs Medical CenterComment on above:Performed By: #### SCAN CBC, LDH, CMP #### [place] [address] USASerum or plasma albumin/globulin mass ratioOrdered By: Christian Carlos on 07-71-0892Pjgjrwz/Globulin [Mass ratio]1.7 {ratio}Normal 0.7-1.7FMemorial Health SystemComment on above:Performed By: #### SPE, KAPPA, JIGAR SERUM #### [facility] ,Serum or plasma alpha 1 globulin measurement by electrophoresis (mass/volume) Ordered By: Christian Carlos on 87-82-0678Awunv 1 globulin Elph [Mass/Vol]0.3 g/dL0.0-0.4FMercy Health Clermont Hospitalerum or plasma alpha 2 globulin measurement by electrophoresis (mass/volume)Ordered By: Christian Carlos on 67-76-7715Wxmpe 2 globulin Elph [Mass/Vol]0.5 g/dL0.4-1.0[facility] Behavioral Medical Centererum or plasma anion gap determinationon 17-51-9220Jwbrg gap [Moles/Vol]9.2 mmol/LNormal6.0-15.0NOMS HealthcareComment on above:Performed By: #### SCAN CBC, LDH, CMP #### [facility] [address] [place] [address] USASerum or plasma beta globulin measurement by electrophoresis (mass/volume)Ordered By: Christian Carlos on 35-61-0933Cdrw globulin Elph [Mass/Vol]0.9 g/dL0.7-1.3FMercy Health Clermont Hospitalerum or plasma gamma globulin measurement by electrophoresis (mass/volume)Ordered By: Christian Carlos on 61-58-3515Nhzkh globulin Elph [Mass/Vol]0.7 g/dL0.4-1.8 [facility] Medical Centererum or plasma immunoglobulin free lambda light chains measurement (mass/volume)Ordered By: Christian Carlos on 43-46-2185Zewaotkevxavng light chains.lambda.free [Mass/Vol]10.6 mg/L5.7-26.3 [facility] Medical Centererum total protein measurementOrdered By: Christian Carlos on 05-60-4790Lzsablr [Mass/Vol]6.3 g/dLNormal6.0-8.5FMemorial Health SystemComment on above:Performed By: #### SPE, KAPPA, JIGAR SERUM #### [facility] ,Sodium [Moles/volume] in Serum or Plasmaon 60-39-3292Bgrrhx [Moles/Vol]140 mmol/UUfrzoz502-161YQDL HealthcareComment on above:Performed By: #### SCAN CBC, LDH, CMP #### [facility] [address] [place] [address] USAUrea nitrogen [Mass/volume] in Serum or Plasmaon 55-90-7628Nevy nitrogen [Mass/Vol]22 mg/dLNormal7-25NOMS HealthcareComment on above:Performed By: #### SCAN CBC, LDH, CMP #### [facility] [address] [place] [id number] USAaPTT in Platelet poor plasma by Coagulation assayOrdered By: Christian Carlos on 10-00-8351uZJE Coag (PPP) [Time]30.1 s25.1-36.5 The [facility] HospitalComment on above:A hematocrit value greater than 55% may lead to inaccurate results in coagulation testing. Patientshaving hematocrit values >55% require a special collection tube for coagulation studies. Please contact the laboratory at [phone] for redraw instructions. FLOWCYTOMETRY [facility] 72-33-6818VEFEXGTDHLCNK [facility] Comment on above:See report. Scanned copy available in EMR.[facility] Alanine aminotransferase [Enzymatic activity/volume] in Serum or PlasmaOrdered By: Christian Carlos on 03-11-5702BZP [Catalytic activity/Vol]30 U/LNormal7-52 The [facility] HospitalComment on above:Performed By: #### SCAN CBC, LDH, CMP #### [facility] [address] [place] [address] USAAlbumin [Mass/volume] in Serum or Plasma by Bromocresol green (BCG) dye binding methoOrdered By: Christian Carlos on 81-15-5552Zstnsjr BCG dye [Mass/Vol]4.4 g/dL3.5-5.7FMemorial Health SystemAlkaline phosphatase [Enzymatic activity/volume] in Serum or PlasmaOrdered By: Christian Carlos on 64-33-7891TPD [Catalytic activity/Vol]86 U/BEldcgr60-809SfjokrltjThe Bellevue HospitalComment on above:Performed By: #### SCAN CBC, LDH, CMP #### [facility] [address] [place] [address] USAAspartate aminotransferase [Enzymatic activity/volume] in Serum or PlasmaOrdered By: Christian Carlos on 58-79-6746WGB [Catalytic activity/Vol]33 U/WGenkfx80-56VnvptqoygThe Bellevue HospitalComment on above: Performed By: #### SCAN CBC, LDH, CMP #### [facility] [address] [place] [address] USABand form neutrophils/100 leukocytes in Blood by Manual countOrdered By: Christian Carlos on 01-48-2683Otzg form neutrophils/100 WBC (Bld)2 %Normal0-5FMemorial Health SystemComment on above:Performed By: #### SCAN CBC, LDH, CMP #### [facility] [address] [place] [address] USABasophils Auto (Bld) [#/Vol]Ordered By: Christian Carlos on 70-30-2353Uqjclltjy (Bld) [#/Vol]N/[facility] Basophils/100 WBC Auto (Bld)Ordered By: Christian Carlos on 01-13-2025 Basophils/100 WBC (Bld)N/[facility] Memorial HospitalBilirubin.total [Mass/volume] in Serum or PlasmaOrdered By: Christian Carlos on 01-13-2025 Bilirubin [Mass/Vol]1.7 mg/dLHigh0.3-1.0The [facility] HospitalComment on above:Samples from patients who have taken Naproxen have shown spurious elevation in Total Bilirubin levels. A metabolite of Naproxen, O- desmethylnaproxen, has been shown to interfere with the Jendrassik-Grof method for measuring Total Bilirubin.Result Comment: Samples from patients who have taken Naproxen have shown spurious elevation in Total Bilirubin levels. A metabolite of Naproxen, O-desmethylnaproxen, has been shown to interfere with the Jendrassik-Grof method for measuring Total Bilirubin.Performed By: #### SCAN CBC, LDH, CMP #### [facility] [address] [place] [address] USACalcium [Mass/volume] in Serum or PlasmaOrdered By: Christian Carlos on 62-05-0572Ajbdmqi [Mass/Vol]9.0 mg/dLNormal8.6-10.3 The [facility] HospitalComment on above:Performed By: #### SCAN CBC, LDH, CMP #### [facility] [address] [place] [address] USACarbon dioxide, total [Moles/volume] in Serum or Plasma Ordered By: Christian Carlos on 96-01-1832QJ7 [Moles/Vol]33.8 mmol/LHigh 21.0-31.0The [facility] HospitalComment on above:Performed By: #### SCAN CBC, LDH, CMP #### [place] [address] USAChloride [Moles/volume] in Serum or PlasmaOrdered By: Christian Carlos on 92-60-4427Ikadghri [Moles/Vol]104 mmol/HZhyosx47-906 The [facility] HospitalComment on above:Performed By: #### SCAN CBC, LDH, CMP #### [facility] [address] [place] [address] USAComprehensive Metabolic Panelon 67-25-7115Ohetuyd [Mass/Vol]4.4 g/dLNormal3.5-5.7The [facility] Physician GroupComment on above: Performed By: #### SCAN CBC, LDH, CMP #### [place] [address] USACreatinine Clr Calc Mikxgihv38.09NoAshe Memorial Hospital Physician [facility] HospitalComment on above:Performed By: #### SCAN CBC, LDH, CMP #### [place] [address] USAGFR/1.73 sq M.predicted MDRD (S/P/Bld) [Vol rate/Area] mL/min/{1.73_m2}NormalThe [facility] Physician [facility] HospitalComment on above:Performed By: #### SCAN CBC, LDH, CMP #### [place] [address] USAComprehensive metabolic panelon 46-80-7441Lrhdbhm [Mass/Vol]4.4 g/dL3.5 - 5.7 g/dLNOMS HealthcareAlbumin/Globulin [Mass ratio]2.6 {ratio}NOMS HealthcareALP [Catalytic activity/Vol]86 U/L34 - 104 U/LNOMS HealthcareALT [Catalytic activity/Vol]30 U/L7 - 52 U/LNOMS HealthcareAnion gap [Moles/Vol]7.3 mmol/L6.0 - 15.0 meq/LNOMS HealthcareAST [Catalytic activity/Vol] 33 U/L13 - 39 U/LNOMS HealthcareBilirubin [Mass/Vol]1.7 mg/dLHigh0.3 - 1.0 mg/dL [facility] HealthcareComment on above:Samples from patients who have taken Naproxen have shown spurious elevation in Total Bilirubin levels. A metabolite of Naproxen, O-desmethylnaproxen, has been shown to interfere with the Sathish-Federica method for measuring Total Bilirubin. Calcium [Mass/Vol]9 mg/dL8.6 - 10.3 mg/dLNOMS HealthcareChloride [Moles/Vol]104 mmol/L98 - 107 mmol/LNOMS HealthcareCO2 [Moles/Vol]33.8 mmol/LHigh21.0 - 31.0 mmol/LNOMS HealthcareCreatinine (U) [Mass/Vol]0.95 mg/dL0.70 - 1.30 mg/dLNOMO HealthcareCREATININE CLR CALC DGXHRALH82.09NOMO HealthcareESTIMATED GFRmL/Min [facility] HealthcareGlobulin (S) [Mass/Vol]1.7 g/dLNOMO HealthcareGlucose [Mass/Vol] 95 mg/dL70 - 100 mg/dLSPANISH FORK [facility]OSPITAL HealthcareComment on above:Random Glucose Reference Range is dependent on time and content of last meal. Glucose of more than 200 mg/dL in a nonstressed, ambulatory subject supports the diagnosis of Diabetes Mellitus. ADA recommended reference range Potassium [Moles/Vol]4.1 mmol/L3.5 - 5.1 mmol/LNOMS HealthcareProtein [Mass/Vol] 6.1 g/dLLow6.4 - 8.9 g/dLNOMO HealthcareSodium [Moles/Vol]141 mmol/L136 - 145 mmol/LNOMS HealthcareUrea nitrogen [Mass/Vol]14 mg/dL7 - 25 mg/dLNONorthwest Medical Center Creatinine [Mass/volume] in Serum or PlasmaOrdered By: Christian Carlos on 30-13-9368Vxsnoxpeja [Mass/Vol]0.95 mg/dLNormal0.70-1.30The Bellevue HospitalComment on above:Performed By: #### SCAN CBC, LDH, CMP #### [place] [address] USADiff and CBCon 23-95-0154Scvsg Platelet Tally1 /100{WBC} NormalThe [facility] Physician [facility] HospitalComment on above:Performed By: #### SCAN CBC, LDH, CMP #### [place] [address] USAMean Corpuscular HGB Conc35.6 g/hCRbsmqs28.5-35.6The [facility] Physician GroupComment on above:Performed By: #### SCAN CBC, LDH, CMP #### [place] [address] USAPlatelet EstimateDecreasedNormalHCA Florida Central [facility] Emergency Physician [facility] HospitalComment on above:Performed By: #### SCAN CBC, LDH, CMP #### [place] [address] USAPlatelet MorphologyNormalNormalNormAdventHealth Carrollwood Physician [facility] HospitalComment on above:Result Comment: PERFORMED BY: [place] [address] PATHOLOGIST AUTO MECHANIC SUPERVISOR SUSAN FREGOSO M.D.Performed By: #### SCAN CBC, LDH, CMP #### [place] [address] USAReactive Lymphocytes2 %Normal0-12[facility] Physician [facility] HospitalComment on above:Performed By: #### SCAN CBC, LDH, CMP #### [place] [address] USAEosinophils Auto (Bld) [#/Vol]Ordered By: Christian Carlos on 28-77-4498Vxuvfnwbyno (Bld) [#/Vol]N/[facility] HospitalEosinophils/100 WBC Auto (Bld)Ordered By: Christian Carlos on 01-13-2025 Eosinophils/100 WBC (Bld)NWood County HospitalEosinophils/100 leukocytes in Blood by Manual countOrdered By: Christian Carlos on 01-13-2025 Eosinophils/100 WBC (Bld)4 %High1-3FMemorial Health SystemComment on above:Performed By: #### SCAN CBC, LDH, CMP #### [facility] [address] [place] [address] USAErythrocyte distribution width [Ratio] by Automated count Ordered By: Christian Carlos on 12-98-3945Ctszwkkiunk distribution width (RBC) [Ratio]14.0 %Ahyrxo41.0-14.8The [facility]vue HospitalComment on above: Performed By: #### SCAN CBC, LDH, CMP #### [facility] [address] [place] [address] USAErythrocyte morphology finding [Identifier] in Blood Ordered By: Christian Carlos on 92-20-1681GWS morphology finding Nom (Bld) NormalNormalNormalThe Bellevue HospitalComment on above:Performed By: #### SCAN CBC, LDH, CMP #### [place] [address] USAErythrocytes [#/volume] in Blood by Automated countOrdered By: Christian Carlos on 53-62-4601TQZ (Bld) [#/Vol]4.15 10*6/uLNormal3.90-5.60 The [facility] HospitalComment on above:Performed By: #### SCAN CBC, LDH, CMP #### [place] [address] USAFlowcytometry Neogenomicon 25-68-2370Qnqokbqtfxrez NeogenBayshore Community Hospital Physician GroupComment on above:Result Comment: See report. Scanned copy available in EMR. PERFORMED BY: [place] [address] PATHOLOGIST AUTO MECHANIC SUPERVISOR DANIELLE QUINONES M.D.Performed By: #### FLOW NEOGENOMIC #### [place] [address] USAGiant platelets/100 leukocytes [Ratio] in Blood by Manual countOrdered By: Christian Carlos on 77-97-1712Stsms platelets/100 WBC Manual cnt (Bld) [Ratio]1 /100{WBC}The [facility] HospitalGlucose [Mass/volume] in Serum or PlasmaOrdered By: Christian Carlos on 01-13-2025 Glucose [Mass/Vol]95 mg/xPLdcjkr40-641HmsjsavvjThe Bellevue HospitalComment on above:ADA recommended reference rangeRandom Glucose Reference Range is dependent on time and content of last meal. Glucose of more than 200 mg/dL in a nonstressed, ambulatory subject supports the diagnosisof Diabetes Mellitus. Result Comment: Random Glucose Reference Range is dependent on time and content of last meal. Glucose of more than 200 mg/dL in a nonstressed, ambulatory subject supports the diagnosis of Diabetes Mellitus. ADA recommended reference rangePerformed By: #### SCAN CBC, LDH, CMP #### [address] [address] USAHematocrit [Volume Fraction] of Blood by Automated count Ordered By: Christian Carlos on 69-63-0946Eisutrhcqs (Bld) [Volume fraction] 38.7 %Low38.8-50.0The [facility]vue HospitalComment on above:Performed By: #### SCAN CBC, LDH, CMP #### [address] [address] USAHemoglobin [Mass/volume] in BloodOrdered By: Christian Carlos on 66-73-7920Vbcgojqiok (Bld) [Mass/Vol]13.8 g/oZZvagxk65.0-17.0 The [facility]vue HospitalComment on above:Performed By: #### SCAN CBC, LDH, CMP #### [address] [address] USALDH Lactate Dehydrogenaseon 91-06-4218NPY Lactate Xdeqhdiclhrpz262 U/NEnqn903-209Usf [facility] Physician GroupComment on above: Result Comment: PERFORMED BY: [place] [address] PATHOLOGIST AUTO MECHANIC SUPERVISOR SUSAN FREGOSO M.D.Performed By: #### SCAN CBC, LDH, CMP #### [address] [address] USALDH Lactate to pyruvate reaction [Catalytic activity/Vol] on 87-10-7757BRN LACTATE FSJCMFIKDCIUA057 U/RKbmk050 - 271 U/[facility] Lactate dehydrogenase [Enzymatic activity/volume] in Serum or Plasma by Lactate to pyOrdered By: Christian Carlos on 41-97-7350KNT Lactate to pyruvate reaction [Catalytic activity/Vol]310 U/YWuif500-841JvgihjrynThe [facility] Hospital Leukocytes [#/volume] corrected for nucleated erythrocytes in Blood by Automated counOrdered By: Christian Carlos on 52-39-1652YOB corrected for nucl RBC Auto (Bld) [#/Vol]16.9 10*3/uLHigh4.1-10.5FMemorial Health SystemLeukocytes [#/volume] in Blood by Automated countOrdered By: Christian Carlos on 45-94-4457MHD (Bld) [#/Vol]16.9 10*3/uLHigh4.1-10.5FMemorial Health SystemComment on above:Performed By: #### SCAN CBC, LDH, CMP #### [facility] [address] [place] [address] USALymphocytes Auto (Bld) [#/Vol]Ordered By: Christian Carlos on 60-21-6316Xzjyjrinaoa (Bld) [#/Vol]N/[facility] HospitalLymphocytes/100 WBC Auto (Bld)Ordered By: Christian Carlos on 01-13-2025 Lymphocytes/100 WBC (Bld)N/[facility] HospitalLymphocytes/100 leukocytes in Blood by Manual countOrdered By: Christian Carlos on 01-13-2025 Lymphocytes/100 WBC (Bld)48 %Eccx82-51PvkzmtzyjThe Bellevue HospitalComment on above:Performed By: #### SCAN CBC, LDH, CMP #### [facility] [address] [place] [address] USAMCH [Entitic mass] by Automated countOrdered By: Christian Carlos on 99-53-4264CSX (RBC) [Entitic mass]33.1 hkEomvcx78.5-35.2FMemorial Health SystemComment on above:Performed By: #### SCAN CBC, LDH, CMP #### [facility] [address] [place] [id number] [facility] CITYHC Auto (RBC) [Mass/Vol]Ordered By: Christian Carlos on 62-86-9738UMSB (RBC) [Mass/Vol]35.6 g/dL32.5-35.6FMemorial Health SystemMCV [Entitic volume] by Automated countOrdered By: Christian Carlos on 67-18-0717VTZ (RBC) [Entitic vol]93.1 uIYjggji41.5-101The [facility]vue HospitalComment on above:Performed By: #### SCAN CBC, LDH, CMP #### [facility] [address] [place] [address] USAMonocytes Auto (Bld) [#/Vol]Ordered By: Christian Carlos on 79-82-6012Ncnewflyy (Bld) [#/Vol]N/[facility] Monocytes/100 WBC Auto (Bld)Ordered By: Christian Carlos on 01-13-2025 Monocytes/100 WBC (Bld)N/[facility] Memorial HospitalMonocytes/100 leukocytes in Blood by Manual countOrdered By: Christian Carlos on 01-13-2025 Monocytes/100 WBC (Bld)6 %Normal2-11The [facility]vue HospitalComment on above:Performed By: #### SCAN CBC, LDH, CMP #### [place] [address] USANeutrophils Auto (Bld) [#/Vol]Ordered By: Christian Carlos on 63-89-8045Xqnatzrqxui (Bld) [#/Vol]N/[facility] Memorial HospitalNeutrophils/100 WBC Auto (Bld)Ordered By: Christian Carlos on 01-13-2025 Neutrophils/100 WBC (Bld)N/[facility] HospitalNo Panel Informationon 38-64-3795Vperiszxmutazs and review of laboratory resultsAbnormal Formerly [facility] HospitalNo Panel InformationOrdered By: Christian Carlos on 78-67-9528Pcevneuly GFR (CKD-EPI)> 60.0 mL/MinThe Bellevue HospitalPharmacy Creatinine Clearance (Chem85.09[facility] Nucleated erythrocytes [Presence] in Blood by Automated countOrdered By: Christian Carlos on 03-46-5540Eembtilnk RBC Auto Ql (Bld)N/AFMemorial Health SystemPlatelet adequacy [Presence] in Blood by Light microscopyOrdered By: Christian Carlos on 08-71-1494Egcvcodao LM Ql (Bld)DecreasedNormalThe Bellevue HospitalPlatelet mean volume [Entitic volume] in Blood by Automated countOrdered By: Christian Carlos on 25-75-2360Zekqwiho mean volume (Bld) [Entitic vol]7.3 fLNormal6.6-10.1FMemorial Health SystemComment on above:Performed By: #### SCAN CBC, LDH, CMP #### [facility] [address] [place] [address] USAPlatelet morphology finding [Identifier] in BloodOrdered By: Christian Carlos on 29-88-8058Cnzjynst morphology finding Nom (Bld)Normal NormalThe Bellevue HospitalPlatelets [#/volume] in Blood by Automated countOrdered By: Christian Carols on 47-14-9842Leuopwicf (Bld) [#/Vol]136 10*3/wKCar579-873AdnwmfzlaThe Bellevue HospitalComment on above: Performed By: #### SCAN CBC, LDH, CMP #### [facility] [address] [place] [address] USAPotassium [Moles/volume] in Serum or PlasmaOrdered By: Christian Carlos on 17-85-5131Ftltjovxa [Moles/Vol]4.1 mmol/LNormal3.5-5.1 The [facility]vue HospitalComment on above:Performed By: #### SCAN CBC, LDH, CMP #### [facility] [address] [place] [id number] USAProtein [Mass/volume] in Serum or PlasmaOrdered By: Christian Carlos on 71-32-1855Drdjciw [Mass/Vol]6.1 g/dLLow6.4-8.9The [facility] HospitalComment on above:Performed By: #### SCAN CBC, LDH, CMP #### [place] [address] USASegmented neutrophils/100 leukocytes in Blood by Manual countOrdered By: Christian Carlos on 08-01-4460Fdgrtboej neutrophils/100 WBC (Bld)39 %Ajg27-20NyzhcagrtThe Bellevue HospitalComment on above:Performed By: #### SCAN CBC, LDH, CMP #### [place] [address] USASerum globulin measurement by calculation (mass/volume) Ordered By: Christian Carlos on 98-94-3618Obmplotm (S) [Mass/Vol]1.7 g/dLNormal The [facility]vue HospitalComment on above:Performed By: #### SCAN CBC, LDH, CMP #### [place] [address] USASerum or plasma albumin/globulin mass ratioOrdered By: Christian Carlos on 23-79-0076Inzbgkp/Globulin [Mass ratio]2.6 {ratio}Normal The [facility]vue HospitalComment on above:Performed By: #### SCAN CBC, LDH, CMP #### [place] [address] USASerum or plasma anion gap determinationOrdered By: Christian Carlos on 73-59-5958Uzobb gap [Moles/Vol]7.3 mmol/LNormal6.0-15.0The [facility] HospitalComment on above:Performed By: #### SCAN CBC, LDH, CMP #### [facility] [address] [place] [address] USASodium [Moles/volume] in Serum or PlasmaOrdered By: Christian Carlos on 76-93-3612Zoywdf [Moles/Vol]141 mmol/ZYpnvnr186-697 The [facility] HospitalComment on above:Performed By: #### SCAN CBC, LDH, CMP #### [place] [address] USAUrea nitrogen [Mass/volume] in Serum or PlasmaOrdered By: Christian Carlos on 51-38-4088Jieg nitrogen [Mass/Vol]14 mg/dLNormal7-25 The [facility] HospitalComment on above:Performed By: #### SCAN CBC, LDH, CMP #### [facility] [address] [place] [address] USAVariant lymphocytes/100 WBC Manual cnt (Bld)Ordered By: Christian Carlos on 12-73-5044Aqhwtae lymphocytes/100 WBC (Bld)2 %0-12The [facility] HospitalA1C with Estimated Average Gluon 33-32-1569Itgemtz [Mass/Vol]94 mg/dLNoAshe Memorial Hospital Physician GroupComment on above:Result Comment: PERFORMED BY: [facility] [address] [place] [address] PATHOLOGIST AUTO MECHANIC SUPERVISOR SUSAN FREGOSO M.D.Performed By: #### SCAN CBC, LDH, CMP #### [facility] [address] [place] [id number] USAAlanine aminotransferase [Enzymatic activity/volume] in Serum or PlasmaOrdered By: Russell Gómez on 51-64-2207MWM [Catalytic activity/Vol] Alanine aminotransferase [Enzymatic activity/volume] in Serum or Plasma The [facility] HospitalALT [Catalytic activity/Vol]28 U/LNormal The [facility]vue HospitalComment on above:Performed By: #### LIPID, CHC CBC, EMP PSA, A1C WTH eA, CMP #### [facility] [address] [place] [address] USAAlbumin [Mass/volume] in Serum or Plasma by Bromocresol green (BCG) dye binding methoOrdered By: Russell Gómez on 92-17-3540Jxaohbc BCG dye [Mass/Vol]Albumin [Mass/volume] in Serum or Plasma by Bromocresol green (BCG) dye binding metho3.5-5.7FMemorial Health SystemAlbumin BCG dye [Mass/Vol]4.3 g/dL3.5-5.7FMemorial Health SystemAlkaline phosphatase [Enzymatic activity/volume] in Serum or PlasmaOrdered By: Russell Gómez on 33-01-4102YNH [Catalytic activity/Vol]Alkaline phosphatase [Enzymatic activity/volume] in Serum or Zruryf89-997Zdmlzapmn Regional Medical CenterALP [Catalytic activity/Vol]85 U/QGkrzfn07-716NngbewzobThe [facility] Comment on above:Result Comment: PERFORMED BY: [address] [address] PATHOLOGIST AUTO MECHANIC SUPERVISOR SUSAN FREGOSO M.D.Performed By: #### LIPID, CHC CBC, EMP PSA, A1C WTH eA, CMP #### [facility] [address] [place] [address] USAAspartate aminotransferase [Enzymatic activity/volume] in Serum or PlasmaOrdered By: Russell Gómez on 58-41-5902JIR [Catalytic activity/Vol] Aspartate aminotransferase [Enzymatic activity/volume] in Serum or Ymjdnf32-14 The [facility] HospitalAST [Catalytic activity/Vol]29 U/FYluwxl62-31 The [facility]vue HospitalComment on above:Performed By: #### LIPID, CHC CBC, EMP PSA, A1C WTH eA, CMP #### [facility] [address] [place] [address] USABasophils Auto (Bld) [#/Vol]Ordered By: Russell Gómez on 60-34-4097Rofgkyfyj (Bld) [#/Vol]Automated basophil count0.0-0.2FMemorial Health SystemBasophils [#/volume] in Blood by Automated countOrdered By: Russell Gómez on 39-16-8587Vkchnxtst (Bld) [#/Vol]0.0 10*3/uLNormal0.0-0.2 The [facility]vue HospitalComment on above:Result Comment: PERFORMED BY: [address] [address] PATHOLOGIST AUTO MECHANIC SUPERVISOR SUSAN FREGOSO M.D.Performed By: #### SCAN CBC, LDH, CMP #### [facility] [address] [place] [address] USABasophils/100 WBC Auto (Bld)Ordered By: Russell Gómez on 80-95-6651Qnvjwwofb/100 WBC (Bld)Automated basophil %.The [facility] HospitalBasophils/100 leukocytes in Blood by Automated countOrdered By: Russell Gómez on 45-74-5543Hqapdjdjc/100 WBC (Bld)0.2 %Normal.The [facility] HospitalComment on above:Performed By: #### SCAN CBC, LDH, CMP #### [facility] [address] [place] [address] USABilirubin.total [Mass/volume] in Serum or PlasmaOrdered By: Russell Gómez on 85-58-2259Ozpjmvoid [Mass/Vol]Bilirubin.total [Mass/volume] in Serum or Plasma0.3-1.0The [facility] HospitalBilirubin [Mass/Vol]1.0 mg/dLNormal0.3-1.0The [facility]vue HospitalComment on above:Performed By: #### LIPID, CHC CBC, EMP PSA, A1C WTH eA, CMP #### [facility] [address] [place] [address] USABlood estimated average glucose determination by estimation from glycated hemoglobinOrdered By: Russell Gómez on 46-90-4900Oxcgkiy glucose Estimated from glycated hemoglobin (Bld) [Mass/Vol]Glucose mean value [Mass/volume] in Blood Estimated from glycated hemoglobinThe Bellevue HospitalAverage glucose Estimated from glycated hemoglobin (Bld) [Mass/Vol]94 mg/dLThe [facility]vue HospitalCalcium [Mass/volume] in Serum or PlasmaOrdered By: Russell Gómez on 77-32-0519Spbyihi [Mass/Vol]Calcium [Mass/volume] in Serum or Plasma8.6-10.3FMemorial Health SystemCalcium [Mass/Vol]9.5 mg/dLNormal8.6-10.3FMemorial Health SystemComment on above:Performed By: #### LIPID, CHC CBC, EMP PSA, A1C WTH eA, CMP #### [facility] [address] [place] [address] USACarbon dioxide, total [Moles/volume] in Serum or Plasma Ordered By: Russell Gómez on 34-02-7858HF4 [Moles/Vol]Carbon dioxide, total [Moles/volume] in Serum or LxgmlnJjov44.0-31.0[facility] CO2 [Moles/Vol]34.1 mmol/LHigh21.0-31.0The [facility] HospitalComment on above:Performed By: #### LIPID, CHC CBC, EMP PSA, A1C WTH eA, CMP #### [facility] [address] [place] [address] USAChloride [Moles/volume] in Serum or PlasmaOrdered By: Russell Gómez on 40-65-5873Dmvrixnc [Moles/Vol]Chloride [Moles/volume] in Serum or Eenobp28-557Blkqzzucb[address] [place], [place] [address]Chloride [Moles/Vol]104 mmol/L Fzcwwk64-044Yufuxjuyd[address] [place], [place] [address]Comment on above:Performed By: #### LIPID, CHC CBC, EMP PSA, A1C WTH eA, CMP #### [facility] [address] [place] [address] USACholesterol [Mass/volume] in Serum or PlasmaOrdered By: Russell Gómez on 61-63-0812Ynonkqqtknq [Mass/Vol]Cholesterol [Mass/volume] in Serum or Sloiwj507-191AehhowhhtThe Bellevue HospitalComment on above:Chol less than 200 mg/dl low riskChol 201-239 mg/dl borderline riskChol 240 mg/dl and greater high riskCholesterol [Mass/Vol]169 mg/bCJrftyl731-940EiizmxfwvThe Bellevue HospitalComment on above:Chol less than 200 mg/dl low riskChol 201-239 mg/dl borderline riskChol 240 mg/dl and greater high riskResult Comment: Chol less than 200 mg/dl low risk Chol 201-239 mg/dl borderline risk Chol 240 mg/dl and greater high riskPerformed By: #### SCAN CBC, LDH, CMP #### [facility] [address] [place] [address] USACholesterol in HDL [Mass/volume] in Serum or PlasmaOrdered By: Russell Gómez on 39-75-8901Pozsupquwdp in HDL [Mass/Vol]Serum or plasma high density lipoprotein (HDL) cholesterol wzrwbnrtlxa26-25AxcpznaabThe Bellevue HospitalComment on above:HDL CHOL ATP-III CLASSIFICATION Cardiovascular RiskHDL > or equal to 60 mg/dL LOWHDL < 40 mg/dL HIGHCholesterol in HDL [Mass/Vol]59 mg/lWBixfzr64-42RuprjdidcThe [facility]vue HospitalComment on above:HDL CHOL ATP- III CLASSIFICATION Cardiovascular RiskHDL > or equal to 60 mg/dL LOWHDL < 40 mg/dL HIGHResult Comment: HDL CHOL ATP-III CLASSIFICATION Cardiovascular Risk HDL > or equal to 60 mg/dL LOW HDL < 40 mg/dL HIGHPerformed By: #### SCAN CBC, LDH, CMP #### [facility] [address] [place] [address] USACholesterol in LDL Calc [Mass/Vol]Ordered By: Russell Gómez on 78-74-4922Arbhqrxnhbf in LDL [Mass/Vol]Cholesterol in LDL [Mass/volume] in Serum or Plasma by calculationThe Bellevue HospitalComment on above:LDL ATP III CLASSIFICATIONLDL less than 100 mg/dL OptimalLDL 100-129 mg/dL Near or above mvzzdlvWAV003-619 mg/dL Borderline highLDL 160-189 mg/dL HighLDL greater than 189 mg/dL Very highCholesterol in LDL [Mass/Vol]93 mg/dL0 The [facility]vue HospitalComment on above:LDL ATP III CLASSIFICATIONLDL less than 100 mg/dL OptimalLDL 100-129 mg/dL Near or above trktvxhKKF002-072 mg/dL Borderline highLDL 160-189 mg/dL HighLDL greater than 189 mg/dL Very high Cholesterol in VLDL Calc [Mass/Vol]Ordered By: Russell Gómez on 11-30-2024 Cholesterol in VLDL [Mass/Vol]Cholesterol in VLDL [Mass/volume] in Serum or Plasma by calculationThe Bellevue HospitalCholesterol in VLDL [Mass/Vol]17 mg/dLThe [facility] HospitalComplete Blood Count no reflexon 83-15-9252Rtwn Corpuscular HGB Conc34.3 g/eAJvohhh88.5-35.6The [facility] Physician GroupComment on above:Performed By: #### SCAN CBC, LDH, CMP #### [facility] [address] [place] [address] USANRBC%0.2 /100{WBC}Normal0-0.5The [facility] Physician Group Comment on above:Performed By: #### SCAN CBC, LDH, CMP #### [place] [address] USAComprehensive Metabolic Panelon 76-51-7543Xqdkdqy [Mass/Vol]4.3 g/dLNormal3.5-5.7The [facility] Physician GroupComment on above: Performed By: #### LIPID, CHC CBC, EMP PSA, A1C WTH eA, CMP #### [place] [address] USAGFR/1.73 sq M.predicted MDRD (S/P/Bld) [Vol rate/Area] mL/min/{1.73_m2}NormalThe [facility] Physician GroupComment on above:Performed By: #### LIPID, CHC CBC, EMP PSA, A1C WTH eA, CMP #### [place] [address] USACreatinine [Mass/volume] in Serum or PlasmaOrdered By: Russell Gómez on 51-45-4673Yjrksbursg [Mass/Vol]Creatinine [Mass/volume] in Serum or Plasma0.70-1.30The [facility] HospitalCreatinine [Mass/Vol]0.81 mg/dLNormal0.70-1.30The [facility] HospitalComment on above:Performed By: #### LIPID, CHC CBC, EMP PSA, A1C WTH eA, CMP #### [place] [address] USAEmployee PSA Totalon 02-11-7729LQF Total ([facility] Orders)0.650 ng/mLNormal0.000-4.000The [facility] Physician GroupComment on above:Result Comment: Serial tumor marker results determined by assays using different manufacturers or methods may not be comparable. [facility] Laboratory clerk rating and method: HARJIT UNICEL DXI, CHEMILUMINESCENT IMMUNOASSAY. PERFORMED BY: [place] [address] PATHOLOGIST AUTO MECHANIC SUPERVISOR SUSAN FREGOSO M.D.Performed By: #### LIPID, CHC CBC, EMP PSA, A1C WTH eA, CMP #### [place] [address] USAEosinophils Auto (Bld) [#/Vol]Ordered By: Russell Gómez on 09-68-8804Gjwblgmzdhl (Bld) [#/Vol]Automated eosinophil count0.0-0.45The [facility] HospitalEosinophils [#/volume] in Blood by Automated countOrdered By: Russell Gómez on 83-16-6198Cmwbjyetyvy (Bld) [#/Vol]0.2 10*3/uLNormal0.0-0.45 The [facility] HospitalComment on above:Performed By: #### SCAN CBC, LDH, CMP #### [facility] [address] [place] [address] USAEosinophils/100 WBC Auto (Bld)Ordered By: Russell Gómez on 38-22-8909Jnpyfjjdpyk/100 WBC (Bld)Automated eosinophil %.The [facility] HospitalEosinophils/100 leukocytes in Blood by Automated countOrdered By: Russell Gómez on 21-83-7921Xmeaesrefko/100 WBC (Bld)1.1 %Normal.The [facility] HospitalComment on above:Performed By: #### SCAN CBC, LDH, CMP #### [facility] [address] [place] [id number] USAErythrocyte distribution width Auto (RBC) [Ratio]Ordered By: Russell Gómez on 17-08-4097Vowvuasremy distribution width (RBC) [Ratio] Erythrocyte distribution width [Ratio] by Automated count12.0-14.8The [facility] HospitalErythrocyte distribution width [Ratio] by Automated count Ordered By: Russell Gómez on 77-05-0491Wnxerlxocpz distribution width (RBC) [Ratio] 13.2 %Ixqcuj12.0-14.8The [facility] HospitalComascension [facility] on above:Performed By: #### SCAN CBC, LDH, CMP #### [facility] [address] [id number] USAErythrocytes [#/volume] in Blood by Automated countOrdered By: Russell Gómez on 74-39-9024QTN (Bld) [#/Vol]4.67 10*6/uLNormal3.90-5.60 The [facility] HospitalComment on above:Performed By: #### SCAN CBC, LDH, CMP #### [facility] [address] [place] [address] USAGlobulin Calc (S) [Mass/Vol]Ordered By: Russell Gómez on 06-61-6820Lapwxlox (S) [Mass/Vol]Serum globulin measurement by calculation (mass/volume)The [facility] HospitalGlucose [Mass/volume] in Serum or PlasmaOrdered By: Russell Gómez on 22-39-8620Zgcxggs [Mass/Vol]Glucose [Mass/volume] in Serum or Vyzwzv96-874SahwdibjvThe [facility] HospitalComment on above:ADA recommended reference rangeRandom Glucose Reference Range is dependent on time and content of last meal. Glucose of more than 200 mg/dL in a nonstressed, ambulatory subject supports the diagnosisof Diabetes Mellitus. Glucose [Mass/Vol]91 mg/mEHapnho40-700ZjhtlxvkvThe [facility] HospitalComment on above:ADA recommended reference rangeRandom Glucose Reference Range is dependent on time and content of last meal. Glucose of more than 200 mg/dL in a nonstressed, ambulatory subject supports the diagnosisof Diabetes Mellitus. Result Comment: Random Glucose Reference Range is dependent on time and content of last meal. Glucose of more than 200 mg/dL in a nonstressed, ambulatory subject supports the diagnosis of Diabetes Mellitus. ADA recommended reference rangePerformed By: #### LIPID, CHC CBC, EMP PSA, A1C WTH eA, CMP #### [facility] [address] [place] [address] USAHematocrit Auto (Bld) [Volume fraction]Ordered By: Russell Gómez on 89-80-8225Wvwbnofzjs (Bld) [Volume fraction]Hematocrit [Volume Fraction] of Blood by Automated count38.8-50.0The [facility] HospitalHematocrit [Volume Fraction] of Blood by Automated countOrdered By: Russell Gómez on 48-74-8289Hsdxyxdche (Bld) [Volume fraction]43.3 %Imzwpx88.8-50.0The [facility] HospitalComment on above:Performed By: #### SCAN CBC, LDH, CMP #### [facility] [address] [place] [address] USAHemoglobin A1c/Hemoglobin.total in BloodOrdered By: Russell Gómez on 19-63-7961CmM2h (Bld) [Mass fraction]Hemoglobin A1c percentage4.3-5.6 The [facility] HospitalComment on above:Increased risk for diabetes: 5.7 - 6.4diabetes: >6.4glycemic control for adults with diabetes: <7.0HbA1c (Bld) [Mass fraction]4.9 %Normal4.3-5.6FMemorial Health SystemComment on above:Increased risk for diabetes: 5.7 - 6.4diabetes: >6.4glycemic control for adults with diabetes: <7.0Result Comment: Increased risk for diabetes: 5.7 - 6.4 diabetes: >6.4 glycemic control for adults with diabetes: <7.0Performed By: #### SCAN CBC, LDH, CMP #### [facility] [address] [id number] USAHemoglobin [Mass/volume] in BloodOrdered By: Russell Gómez on 93-89-9203Xybaayrfqx (Bld) [Mass/Vol]Hemoglobin [Mass/volume] in Blood13.0-17.0 [facility] HospitalHemoglobin (Bld) [Mass/Vol]14.9 g/dLNormal 13.0-17.0The [facility] HospitalComment on above:Performed By: #### SCAN CBC, LDH, CMP #### [facility] [address] [id number] USALeukocytes [#/volume] corrected for nucleated erythrocytes in Blood by Automated counOrdered By: Russell Gómez on 65-71-9558NPR corrected for nucl RBC Auto (Bld) [#/Vol]Leukocytes [#/volume] corrected for nucleated erythrocytes in Blood by Automated counHigh4.1-10.5FMemorial Health SystemWBC corrected for nucl RBC Auto (Bld) [#/Vol]19.5 10*3/uLHigh4.1-10.5 [facility] HospitalLeukocytes [#/volume] in Blood by Automated countOrdered By: Russell Gómez on 00-41-6173TBH (Bld) [#/Vol]19.5 10*3/uLHigh 4.1-10.5FMemorial Health SystemComment on above:Performed By: #### SCAN CBC, LDH, CMP #### [facility] [address] [id number] USALipid Panelon 31-42-5929MBQ Cholesterol,Fustkucprw27 mg/dL Normal0-100The [facility] Physician [place] [facility] HospitalComment on above:Result Comment: LDL ATP III CLASSIFICATION LDL less than 100 mg/dL Optimal LDL 100-129 mg/dL Near or above optimal LDL 130-159 mg/dL Borderline high LDL 160-189 mg/dL High LDL greater than 189 mg/dL Very highPerformed By: #### SCAN CBC, LDH, CMP #### [facility] [address] [place] [address] USATriglyceride w/Colbco69 mg/dLNormal0-149The [facility] Physician GroupComment on above:Result Comment: TRIG ATP III CLASSIFICATION TRIG less than 150 mg/dL Normal TRIG 150-199 mg/dL Borderline high TRIG 200-500 mg/dL High TRIG greater than 500 mg/dL Very high Standard traceable to the Center for Disease Conrtrol and Prevention (CDC) test method.Performed By: #### SCAN CBC, LDH, CMP #### [facility] [address] [place] [address] USAVLDL TQUNJSXTGFO36 mg/dLNormalThe [facility] Physician [place] [facility] HospitalComment on above:Performed By: #### SCAN CBC, LDH, CMP #### [facility] [address] [place] [address] USALymphocytes Auto (Bld) [#/Vol]Ordered By: Russell Gómez on 42-31-4433Eqbdpvsfpab (Bld) [#/Vol]Lymphocytes [#/volume] in Blood by Automated countHigh1.00-4.8The [facility] HospitalLymphocytes [#/volume] in Blood by Automated countOrdered By: Russell Gómez on 76-37-8379Xedylbgrjpo (Bld) [#/Vol]14.4 10*3/uLHigh1.00-4.8The [facility] HospitalComment on above:Performed By: #### SCAN CBC, LDH, CMP #### [facility] [address] [id number] USALymphocytes/100 WBC Auto (Bld)Ordered By: Russell Gómez on 66-90-2779Bvkkozmenas/100 WBC (Bld)Lymphocytes/100 leukocytes in Blood by Automated count.The [facility] HospitalLymphocytes/100 leukocytes in Blood by Automated countOrdered By: Russell Gómez on 45-92-9685Xcwwdomikrs/100 WBC (Bld)74.0 %Normal.The [facility] HospitalComment on above:Performed By: #### SCAN CBC, LDH, CMP #### [facility] [address] Auto (RBC) [Entitic mass]Ordered By: Russell Gómez on 43-27-9325SBV (RBC) [Entitic mass]MCH [Entitic mass] by Automated count27.5-35.2 [facility] [Entitic mass] by Automated countOrdered By: Russell Gómez on 13-21-8547HQB (RBC) [Entitic mass]31.8 koTopstp64.5-35.2 The [facility] HospitalComment on above:Performed By: #### SCAN CBC, LDH, CMP #### [facility] [address] [id number] [facility] Auto (RBC) [Mass/Vol]Ordered By: Russell Gómez on 60-04-4132KOLE (RBC) [Mass/Vol]MCHC [Mass/volume] by Automated count32.5-35.6 [facility] HospitalHC (RBC) [Mass/Vol]34.3 g/dL32.5-35.6 [facility] Auto (RBC) [Entitic vol]Ordered By: Russell Gómez on 24-13-4426LCV (RBC) [Entitic vol]MCV [Entitic volume] by Automated count 83.5-101[facility] [Entitic volume] by Automated count Ordered By: Russell Gómez on 16-89-0926IBP (RBC) [Entitic vol]92.8 fNGtbzrl64.5-101 The [facility] HospitalComment on above:Performed By: #### SCAN CBC, LDH, CMP #### [facility] [address] [place] [address] USAMonocytes Auto (Bld) [#/Vol]Ordered By: Russell Gómez on 22-43-3808Iddjpajtc (Bld) [#/Vol]Automated blood monocyte count0.0-0.8The [facility] HospitalMonocytes [#/volume] in Blood by Automated countOrdered By: Russell Gómez on 72-18-1923Xlxvxgedn (Bld) [#/Vol]0.4 10*3/uLNormal0.0-0.8 The [facility] HospitalComment on above:Performed By: #### SCAN CBC, LDH, CMP #### [place] [id number] USAMonocytes/100 WBC Auto (Bld)Ordered By: Russell Gómez on 89-65-2383Rfihlifjq/100 WBC (Bld)Automated monocyte %.The [facility] HospitalMonocytes/100 leukocytes in Blood by Automated countOrdered By: Russell Gómez on 68-88-6358Giijnnwfv/100 WBC (Bld)2.3 %Normal.The [facility] HospitalComment on above:Performed By: #### SCAN CBC, LDH, CMP #### [place] [id number] USANeutrophils Auto (Bld) [#/Vol]Ordered By: Russell Gómez on 91-72-6634Jpslvyaicbd (Bld) [#/Vol]Neutrophils [#/volume] in Blood by Automated count1.8-7.7FMemorial Health SystemNeutrophils [#/volume] in Blood by Automated countOrdered By: Russell Gómez on 68-77-5366Oruvurtivmm (Bld) [#/Vol]4.4 10*3/uLNormal1.8-7.7FMemorial Health SystemComment on above:Performed By: #### SCAN CBC, LDH, CMP #### [place] [id number] USANeutrophils/100 WBC Auto (Bld)Ordered By: Russell Gómez on 83-65-9873Ujumveicxfm/100 WBC (Bld)Automated neutrophil %.The [facility] HospitalNeutrophils/100 leukocytes in Blood by Automated countOrdered By: Russell Gómez on 92-82-3560Dhnvsgaypjj/100 WBC (Bld)22.4 %Normal.The [facility] HospitalComment on above:Performed By: #### SCAN CBC, LDH, CMP #### [facility] [address] [place] [address] USANo Panel InformationOrdered By: Russell Gómez on 11-30-2024 Estimated GFR (CKD-EPI)> 60.0 mL/MinThe Bellevue HospitalPhaacy Creatinine Clearance (ChemN/AFMemorial Health SystemNucleated erythrocytes [Presence] in Blood by Automated countOrdered By: Russell Gómez on 15-00-1909Uboslavem RBC Auto Ql (Bld)Nucleated erythrocytes [Presence] in Blood by Automated count0-0.5FMemorial Health SystemNucleated RBC Auto Ql (Bld)0.2 /100{WBC}0-0.5FMemorial Health SystemPlatelet mean volume Auto (Bld) [Entitic vol]Ordered By: Russell Gómez on 45-74-8393Jtpsmsfd mean volume (Bld) [Entitic vol]Platelet mean volume [Entitic volume] in Blood by Automated count6.6-10.1FMemorial Health SystemPlatelet mean volume [Entitic volume] in Blood by Automated countOrdered By: Russell Gómez on 14-26-0339Wcvrrefe mean volume (Bld) [Entitic vol]8.6 fLNormal6.6-10.1FMemorial Health SystemComment on above:Performed By: #### SCAN CBC, LDH, CMP #### [facility] [address] [place] [address] USAPlatelets Auto (Bld) [#/Vol]Ordered By: Russell Gómez on 36-10-9152Kzbtehmsu (Bld) [#/Vol]Platelets [#/volume] in Blood by Automated huljxMos893-145NgccpthlyThe Bellevue HospitalPlatelets [#/volume] in Blood by Automated countOrdered By: Russell Gómez on 29-87-4298Lyentrkis (Bld) [#/Vol]121 10*3/xFQus359-258RfyofnfbnThe Bellevue HospitalComment on above:Performed By: #### SCAN CBC, LDH, CMP #### [facility] [address] [place] [address] USAPotassium [Moles/volume] in Serum or PlasmaOrdered By: Russell Gómez on 08-99-8625Lcovqovyd [Moles/Vol]Potassium [Moles/volume] in Serum or Plasma3.5-5.1FMemorial Health SystemPotassium [Moles/Vol]3.8 mmol/L Normal3.5-5.1FMemorial Health SystemComment on above:Performed By: #### LIPID, CHC CBC, EMP PSA, A1C WTH eA, CMP #### [facility] [address] [id number] USAProstate specific Ag [Mass/volume] in Serum or Plasma Ordered By: Russell Gómez on 68-84-8509Maoyamez specific Ag [Mass/Vol]Prostate specific Ag [Mass/volume] in Serum or Plasma0.000-4.000The [facility] HospitalComment on above:Serial tumor marker results determined by assays using different manufacturers or methods may not be comparable.[facility] Laboratory clerk rating and method:Months Of Me DXI, CHEMILUMINESCENT IMMUNO ASSAY.Prostate specific Ag [Mass/Vol]0.650 ng/mL0.000-4.000The [facility] HospitalComment on above:Serial tumor marker results determined by assays using different manufacturers or methods may not be comparable.[facility] Laboratory clerk rating and method:Months Of Me DXI, CHEMILUMINESCENT IMMUNO ASSAY.Protein [Mass/volume] in Serum or PlasmaOrdered By: Russell Gómez on 10-95-9973Lhkvodv [Mass/Vol]Protein [Mass/volume] in Serum or PlasmaLow6.4-8.9 [facility] HospitalProtein [Mass/Vol]6.3 g/dLLow6.4-8.9The [facility] HospitalComment on above:Performed By: #### LIPID, CHC CBC, EMP PSA, A1C WTH eA, CMP #### [facility] [address] [id number] USARBC Auto (Bld) [#/Vol]Ordered By: Russell Gómez on 11-30-2024 RBC (Bld) [#/Vol]Erythrocytes [#/volume] in Blood by Automated count3.90-5.60 [facility] Medical Centererum globulin measurement by calculation (mass/volume)Ordered By: Russell Gómez on 28-96-1731Dofrtleb (S) [Mass/Vol]2.0 g/dL The [facility] Hospital at SouthwoodsComment on above:Performed By: #### LIPID, CHC CBC, EMP PSA, A1C WT eA, CMP #### [facility] [address] [id number] USASerum or plasma albumin/globulin mass ratioOrdered By: Russell Gómez on 27-38-2836Bjwgyml/Globulin [Mass ratio]Serum or plasma albumin/globulin mass ratioThe Bellevue HospitalAlbumin/Globulin [Mass ratio]2.2 {ratio}The [facility] Hospital at SouthwoodsComment on above: Performed By: #### LIPID, CHC CBC, EMP PSA, A1C WT eA, CMP #### [facility] [address] [id number] USASerum or plasma anion gap determinationOrdered By: Russell Gómez on 01-01-7739Mazuv gap [Moles/Vol]Serum or plasma anion gap determination 6.0-15.0The [facility] HospitalAnion gap [Moles/Vol]7.7 mmol/LNormal 6.0-15.0The [facility] HospitalComment on above:Performed By: #### LIPID, CHC CBC, EMP PSA, A1C WT eA, CMP #### [facility] [address] [id number] USASerum or plasma total cholesterol/high density lipoprotein (HDL) cholesterol mass ratOrdered By: Russell Gómez on 11-30-2024 Cholesterol.total/Cholesterol in HDL [Mass ratio]Serum or plasma total cholesterol/high density lipoprotein (HDL) cholesterol mass rat<5.0The [facility] HospitalCholesterol.total/Cholesterol in HDL [Mass ratio]2.9 {ratio}Normal<5.0The [facility] HospitalComment on above:Result Comment: PERFORMED BY: [facility] [address] [place] [address] PATHOLOGIST AUTO MECHANIC SUPERVISOR SUSAN FREGOSO M.D.Performed By: #### SCAN CBC, LDH, CMP #### [facility] [address] [place] [address] USASodium [Moles/volume] in Serum or PlasmaOrdered By: Russell Gómez on 92-00-0676Aypsxu [Moles/Vol]Sodium [Moles/volume] in Serum or Plasma 136-145[facility]al Medical Centerodium [Moles/Vol]142 mmol/LNormal 136-145The [facility] HospitalComment on above:Performed By: #### LIPID, CHC CBC, EMP PSA, A1C WTH eA, CMP #### [facility] [address] [place] [address] USATriglyceride [Mass/volume] in Serum or PlasmaOrdered By: Russell Gómez on 65-74-6796Ewjhmbyvonei [Mass/Vol]Triglyceride [Mass/volume] in Serum or Plasma0-149The [facility] HospitalComment on above:TRIG ATP III CLASSIFICATIONTRIG less than 150 mg/dL NormalTRIG 150-199 mg/dL Borderline highTRIG 200-500 mg/dL High TRIG greater than 500 mg/dL Very highStandard traceable to the Center for Disease Conrtrol and Prevention (CDC) test method. Triglyceride [Mass/Vol]86 mg/dL0-149The [facility] HospitalComment on above:TRIG ATP III CLASSIFICATIONTRIG less than 150 mg/dL NormalTRIG 150-199 mg/dL Borderline highTRIG 200-500 mg/dL High TRIG greater than 500 mg/dL Very highStandard traceable to the Center for Disease Conrtrol and Prevention (CDC) test method.Urea nitrogen [Mass/volume] in Serum or PlasmaOrdered By: Russell Gómez on 61-15-2683Hinr nitrogen [Mass/Vol]Urea nitrogen [Mass/volume] in Serum or Plasma03-18The [facility] HospitalUrea nitrogen [Mass/Vol]15 mg/dL NormalThe Bellevue HospitalComment on above:Performed By: #### LIPID, CHC CBC, EMP PSA, A1C WTH eA, CMP #### [facility] [address] [place] [address] USAWBC Auto (Bld) [#/Vol]Ordered By: Russell Gómez on 11-30-2024 WBC (Bld) [#/Vol]Leukocytes [#/volume] in Blood by Automated countHigh4.1-10.5 The [facility] HospitalAlanine aminotransferase [Enzymatic activity/volume] in Serum or PlasmaOrdered By: Irene Solares on 91-53-0666NJI [Catalytic activity/Vol]Alanine aminotransferase [Enzymatic activity/volume] in Serum or Plasma7-52The [facility] HospitalAlbumin [Mass/volume] in Serum or Plasma by Bromocresol green (BCG) dye binding methoOrdered By: Irene Solares on 40-66-5117Blnduir BCG dye [Mass/Vol]Albumin [Mass/volume] in Serum or Plasma by Bromocresol green (BCG) dye binding metho3.5-5.7FMemorial Health SystemAlkaline phosphatase [Enzymatic activity/volume] in Serum or PlasmaOrdered By: Irene Solares on 25-65-5727FSS [Catalytic activity/Vol] Alkaline phosphatase [Enzymatic activity/volume] in Serum or Eiiger22-586 The [facility] HospitalAspartate aminotransferase [Enzymatic activity/volume] in Serum or PlasmaOrdered By: Irene Solares on 06-01-8317PZH [Catalytic activity/Vol]Aspartate aminotransferase [Enzymatic activity/volume] in Serum or Vhlijc11-43YdaquuxgsThe Bellevue HospitalBasophils Auto (Bld) [#/Vol]Ordered By: Irene Solares on 46-27-4671Zfhdvwcjp (Bld) [#/Vol]Automated basophil count0.0-0.2FMemorial Health SystemBasophils/100 WBC Auto (Bld)Ordered By: Irene Solares on 03-39-3396Qbsjunggx/100 WBC (Bld)Automated basophil %.The [facility] HospitalBilirubin.total [Mass/volume] in Serum or PlasmaOrdered By: Irene Solares on 69-36-9440Dhqnevypl [Mass/Vol] Bilirubin.total [Mass/volume] in Serum or PlasmaHigh0.3-1.0The [facility] HospitalCalcium [Mass/volume] in Serum or PlasmaOrdered By: Irene Sujatha on 46-77-0612Ebqnvub [Mass/Vol]Calcium [Mass/volume] in Serum or Plasma8.6-10.3 The [facility] HospitalCarbon dioxide, total [Moles/volume] in Serum or PlasmaOrdered By: Irene Sujatha on 31-60-7110RY6 [Moles/Vol]Carbon dioxide, total [Moles/volume] in Serum or RinxxiAwui01.0-31.0The [facility] HospitalChloride [Moles/volume] in Serum or PlasmaOrdered By: Irene Sujatha on 28-84-7277Vkqpjaty [Moles/Vol]Chloride [Moles/volume] in Serum or Settmg89-639 The [facility] HospitalComprehensive Metabolic Panelon 11-12-2024 Albumin [Mass/Vol]4.4 g/dLNormal3.5-5.7The [facility] Physician GroupComment on above:Performed By: #### SCAN CBC, LDH, CMP #### [facility] [address] [place] [address] USAAlbumin/Globulin [Mass ratio]2.3 {ratio}NormalThe [facility] Physician GroupComment on above:Performed By: #### SCAN CBC, LDH, CMP #### [facility] [address] [place] [address] USAALP [Catalytic activity/Vol]89 U/VTxbicq88-649Ktu [facility] Physician GroupComment on above:Performed By: #### SCAN CBC, LDH, CMP #### [facility] [address] [place] [address] USAALT [Catalytic activity/Vol]28 U/LNormal7-52The [facility] Physician GroupComment on above:Performed By: #### SCAN CBC, LDH, CMP #### [facility] [address] [id number] USAAnion gap [Moles/Vol]8.2 mmol/LNormal6.0-15.0The [facility] Physician GroupComment on above:Performed By: #### SCAN CBC, LDH, CMP #### [facility] [address] [id number] USAAST [Catalytic activity/Vol]27 U/OZavboa69-88Nah [facility] Physician GroupComment on above:Performed By: #### SCAN CBC, LDH, CMP #### [place] [address] USABilirubin [Mass/Vol]1.1 mg/dLHigh0.3-1.0The [facility] Physician GroupComment on above:Performed By: #### SCAN CBC, LDH, CMP #### [place] [address] USACalcium [Mass/Vol]8.8 mg/dLNormal8.6-10.3The [facility] Physician GroupComment on above:Performed By: #### SCAN CBC, LDH, CMP #### [place] [address] USAChloride [Moles/Vol]106 mmol/YDthlyz79-934Puo [facility] Physician GroupComment on above:Performed By: #### SCAN CBC, LDH, CMP #### [place] [address] USACO2 [Moles/Vol]31.9 mmol/LHigh21.0-31.0The [facility] Physician GroupComment on above:Performed By: #### SCAN CBC, LDH, CMP #### [place] [address] USACreatinine [Mass/Vol]0.83 mg/dLNormal0.70-1.30The [facility] Physician GroupComment on above:Performed By: #### SCAN CBC, LDH, CMP #### [place] [address] USACreatinine Clr Calc Zszyucyh22.39NormalThe [facility] Physician GroupComment on above:Performed By: #### SCAN CBC, LDH, CMP #### [place] [address] USAGFR/1.73 sq M.predicted MDRD (S/P/Bld) [Vol rate/Area] mL/min/{1.73_m2}NormalThe [facility] Physician GroupComment on above:Performed By: #### SCAN CBC, LDH, CMP #### [address] [place] [address] USAGlobulin (S) [Mass/Vol]1.9 g/dLNormalThe [facility] Physician GroupComment on above:Performed By: #### SCAN CBC, LDH, CMP #### [place] [address] USAGlucose [Mass/Vol]93 mg/kWYmiezs91-253Chp [facility] Physician GroupComment on above:Result Comment: Random Glucose Reference Range is dependent on time and content of last meal. Glucose of more than 200 mg/dL in a nonstressed, ambulatory subject supports the diagnosis of Diabetes Mellitus. ADA recommended reference rangePerformed By: #### SCAN CBC, LDH, CMP #### [place] [address] USAPotassium [Moles/Vol]4.1 mmol/LNormal3.5-5.1The [facility] Physician GroupComment on above:Performed By: #### SCAN CBC, LDH, CMP #### [place] [address] USAProtein [Mass/Vol]6.3 g/dLLow6.4-8.9The [facility] Physician GroupComment on above:Performed By: #### SCAN CBC, LDH, CMP #### [place] [address] USASodium [Moles/Vol]142 mmol/SRupyst426-295Hur [facility] Physician GroupComment on above:Performed By: #### SCAN CBC, LDH, CMP #### [place] [address] USAUrea nitrogen [Mass/Vol]17 mg/dLNormal7-25The [facility] Physician GroupComment on above:Performed By: #### SCAN CBC, LDH, CMP #### [place] [address] USACreatinine [Mass/volume] in Serum or PlasmaOrdered By: Irene Solares on 31-09-8023Jbfundabfo [Mass/Vol]Creatinine [Mass/volume] in Serum or Plasma0.70-1.30The [facility] HospitalEosinophils Auto (Bld) [#/Vol]Ordered By: Irene Solares on 07-92-9681Tjahzprbkwv (Bld) [#/Vol]Automated eosinophil count0.0-0.45The [facility] HospitalEosinophils/100 WBC Auto (Bld)Ordered By: Irene Sujatha on 31-55-3225Kqbccqcemmg/100 WBC (Bld) Automated eosinophil %.The [facility] HospitalErythrocyte distribution width Auto (RBC) [Ratio]Ordered By: Irene Solraes on 04-46-5647Ayoyjybxioz distribution width (RBC) [Ratio]Erythrocyte distribution width [Ratio] by Automated count12.0-14.8The [facility] HospitalErythrocyte morphology finding [Identifier] in BloodOrdered By: Irene Solares on 32-04-5171TGE morphology finding Nom (Bld)RBC morphologyNormalThe Bellevue HospitalGlobulin Calc (S) [Mass/Vol]Ordered By: Irene Solares on 11-12-2024 Globulin (S) [Mass/Vol]Serum globulin measurement by calculation (mass/volume) The [facility] HospitalGlucose [Mass/volume] in Serum or PlasmaOrdered By: Irene Solares on 12-39-7349Jeqcaez [Mass/Vol]Glucose [Mass/volume] in Serum or Agnhcl07-868IszzduwbeThe Bellevue HospitalComment on above:ADA recommended reference rangeRandom Glucose Reference Range is dependent on time and content of last meal. Glucose of more than 200 mg/dL in a nonstressed, ambulatory subject supports the diagnosisof Diabetes Mellitus.Hematocrit Auto (Bld) [Volume fraction]Ordered By: Irene Solares on 98-20-4162Ywvmjuqtmq (Bld) [Volume fraction]Hematocrit [Volume Fraction] of Blood by Automated count 38.8-50.0The [facility] HospitalHemoglobin [Mass/volume] in Blood Ordered By: Irene Solares on 09-76-4490Qarmoctonu (Bld) [Mass/Vol]Hemoglobin [Mass/volume] in Blood13.0-17.0The [facility] HospitalLDH Lactate Dehydrogenaseon 36-94-6866CCW Lactate Pmtbkdvngrgtf726 U/SCenivp233-248Tuf [facility] Physician GroupComment on above:Result Comment: PERFORMED BY: [facility] [address] [place] [id number] PATHOLOGIST AUTO MECHANIC SUPERVISOR SUSAN FREGOSO M.D.Performed By: #### SCAN CBC, LDH, CMP #### [facility] [address] [place] [address] USALactate dehydrogenase [Enzymatic activity/volume] in Serum or Plasma by Lactate to pyOrdered By: Irene Solares on 65-67-9699EFJ Lactate to pyruvate reaction [Catalytic activity/Vol]Lactate dehydrogenase [Enzymatic activity/volume] in Serum or Plasma by Lactate to jz990-099XbovturalThe Bellevue HospitalLeukocytes [#/volume] corrected for nucleated erythrocytes in Blood by Automated counOrdered By: Irene Solares on 71-77-2991AFC corrected for nucl RBC Auto (Bld) [#/Vol]Leukocytes [#/volume] corrected for nucleated erythrocytes in Blood by Automated counHigh4.1-10.5FMemorial Health SystemLymphocytes Auto (Bld) [#/Vol]Ordered By: Irene Solares on 11-12-2024 Lymphocytes (Bld) [#/Vol]Lymphocytes [#/volume] in Blood by Automated countHigh 1.00-4.8The [facility] HospitalLymphocytes/100 WBC Auto (Bld)Ordered By: Irene Solares on 56-50-5649Kwbjlxeamlr/100 WBC (Bld)Lymphocytes/100 leukocytes in Blood by Automated count.[facility] HospitalH Auto (RBC) [Entitic mass]Ordered By: Irene Solares on 59-73-8291SUN (RBC) [Entitic mass]MCH [Entitic mass] by Automated count27.5-35.2FMemorial Health SystemMCHC Auto (RBC) [Mass/Vol]Ordered By: Irene Solares on 95-15-4124ZLAD (RBC) [Mass/Vol]MCHC [Mass/volume] by Automated count32.5-35.6FUniversity Hospitals Ahuja Medical CenterV Auto (RBC) [Entitic vol]Ordered By: Irene Solares on 83-95-3316EOY (RBC) [Entitic vol]MCV [Entitic volume] by Automated count83.5-101 The [facility] HospitalMonocytes Auto (Bld) [#/Vol]Ordered By: Irene Solares on 38-68-6020Xkwgacwbs (Bld) [#/Vol]Automated blood monocyte count 0.0-0.8The [facility] HospitalMonocytes/100 WBC Auto (Bld)Ordered By: Irene Solares on 93-37-1314Llwwasbmh/100 WBC (Bld)Automated monocyte %.The [facility] HospitalNeutrophils Auto (Bld) [#/Vol]Ordered By: Irene Solares on 48-33-3954Pkxngkmjsns (Bld) [#/Vol]Neutrophils [#/volume] in Blood by Automated count1.8-7.7FMemorial Health SystemNeutrophils/100 WBC Auto (Bld)Ordered By: Irene Solares on 06-17-5112Umoyosmgivj/100 WBC (Bld)Automated neutrophil %.The [facility] HospitalNo Panel InformationOrdered By: Irene Solares on 48-95-1138Bwgabbuzv GFR (CKD-EPI)> 60.0 mL/MinThe Bellevue HospitalPharmacy Creatinine Clearance (Chem97.39The [facility] HospitalNucleated erythrocytes [Presence] in Blood by Automated countOrdered By: Irene Solares on 36-25-7917Livylrquc RBC Auto Ql (Bld)Nucleated erythrocytes [Presence] in Blood by Automated count0-0.5FMemorial Health SystemPlatelet adequacy [Presence] in Blood by Light microscopyOrdered By: Irene Solares on 59-21-0569Yapdkenpy LM Ql (Bld)Platelet adequacy [Presence] in Blood by Light microscopyNoAdena Pike Medical CenterPlatelet mean volume Auto (Bld) [Entitic vol]Ordered By: Irene Solares on 11-12-2024 Platelet mean volume (Bld) [Entitic vol]Platelet mean volume [Entitic volume] in Blood by Automated count6.6-10.1FMemorial Health SystemPlatelet morphology finding [Identifier] in BloodOrdered By: Irene Solares on 11-12-2024 Platelet morphology finding Nom (Bld)Platelet morphology finding [Identifier] in BloodNoAdena Pike Medical CenterPlatelets Auto (Bld) [#/Vol]Ordered By: Irene Solares on 53-83-0817Qonhjvgok (Bld) [#/Vol]Platelets [#/volume] in Blood by Automated yvjiaJdj433-685DhygkahjkThe Bellevue HospitalPotassium [Moles/volume] in Serum or PlasmaOrdered By: Irene Elisemarilyn on 11-12-2024 Potassium [Moles/Vol]Potassium [Moles/volume] in Serum or Plasma3.5-5.1FMemorial Health SystemProtein [Mass/volume] in Serum or PlasmaOrdered By: Irene Sujatha on 70-48-2629Kizcmfk [Mass/Vol]Protein [Mass/volume] in Serum or PlasmaLow6.4-8.9The [facility] HospitalRBC Auto (Bld) [#/Vol]Ordered By: Irene Sujatha on 31-39-0243ZHM (Bld) [#/Vol]Erythrocytes [#/volume] in Blood by Automated count3.90-5.60[facility] Medical Centercan and CBCon 97-18-0620Amaehrhgt (Bld) [#/Vol]0.1 10*3/uLNormal0.0-0.2The [facility] Physician GroupComment on above:Performed By: #### SCAN CBC, LDH, CMP #### [facility] [address] [id number] USABasophils/100 WBC (Bld)0.4 %Normal.The [facility] Physician GroupComment on above:Performed By: #### SCAN CBC, LDH, CMP #### [facility] [address] [place] [address] USAEosinophils (Bld) [#/Vol]0.2 10*3/uLNormal0.0-0.45The [facility] Physician GroupComment on above:Performed By: #### SCAN CBC, LDH, CMP #### [facility] [address] [id number] USAEosinophils/100 WBC (Bld)1.0 %Normal.The [facility] Physician GroupComment on above:Performed By: #### SCAN CBC, LDH, CMP #### [facility] [address] [id number] USAErythrocyte distribution width (RBC) [Ratio]12.9 %Normal 12.0-14.8The [facility] Physician GroupComment on above:Performed By: #### SCAN CBC, LDH, CMP #### [place] [address] USAHematocrit (Bld) [Volume fraction]41.8 %Nsvqtl93.8-50.0The [facility] Physician GroupComment on above:Performed By: #### SCAN CBC, LDH, CMP #### [place] [address] USAHemoglobin (Bld) [Mass/Vol]14.7 g/jZVmwqjv53.0-17.0The [facility] Physician GroupComment on above:Performed By: #### SCAN CBC, LDH, CMP #### [place] [address] USALymphocytes (Bld) [#/Vol]13.2 10*3/uLHigh1.00-4.8The [facility] Physician GroupComment on above:Performed By: #### SCAN CBC, LDH, CMP #### [place] [address] USALymphocytes/100 WBC (Bld)75.9 %Normal.The [facility] Physician GroupComment on above:Performed By: #### SCAN CBC, LDH, CMP #### [place] [address] USAMCH (RBC) [Entitic mass]32.2 ayKpayix01.5-35.2The [facility] Physician GroupComment on above:Performed By: #### SCAN CBC, LDH, CMP #### [place] [address] USAMCV (RBC) [Entitic vol]91.7 jUWucqvq31.5-101The [facility] Physician GroupComment on above:Performed By: #### SCAN CBC, LDH, CMP #### [place] [address] USAMean Corpuscular HGB Conc35.1 g/sZGdcmhl19.5-35.6The [facility] Physician GroupComment on above:Performed By: #### SCAN CBC, LDH, CMP #### [facility] [address] [place] [address] USAMonocytes (Bld) [#/Vol]0.4 10*3/uLNormal0.0-0.8The [facility] Physician GroupComment on above:Performed By: #### SCAN CBC, LDH, CMP #### [place] [address] USAMonocytes/100 WBC (Bld)2.1 %Normal.The [facility] Physician GroupComment on above:Performed By: #### SCAN CBC, LDH, CMP #### [place] [address] USANeutrophils (Bld) [#/Vol]3.6 10*3/uLNormal1.8-7.7The [facility] Physician GroupComment on above:Performed By: #### SCAN CBC, LDH, CMP #### [place] [address] USANeutrophils/100 WBC (Bld)20.6 %Normal.The [facility] Physician GroupComment on above:Performed By: #### SCAN CBC, LDH, CMP #### [place] [address] USANRBC%0.2 /100{WBC}Normal0-0.5[facility] Comment on above:Performed By: #### SCAN CBC, LDH, CMP #### [place] [address] USAPlatelet EstimateDecreasedNormalNormalThe [facility] Physician GroupComment on above:Performed By: #### SCAN CBC, LDH, CMP #### [place] [address] USAPlatelet mean volume (Bld) [Entitic vol]7.9 fLNormal 6.6-10.1The [facility] Physician GroupComment on above:Performed By: #### SCAN CBC, LDH, CMP #### [place] [address] USAPlatelet MorphologyNormalNormalNormAdventHealth Carrollwood Physician [facility] County HospitalComment on above:Result Comment: PERFORMED BY: [place] [address] PATHOLOGIST AUTO MECHANIC SUPERVISOR SUSAN FREGOSO M.D.Performed By: #### SCAN CBC, LDH, CMP #### [place] [address] USAPlatelets (Bld) [#/Vol]136 10*3/lJVap226-281Tpn [facility] Physician GroupComment on above:Performed By: #### SCAN CBC, LDH, CMP #### [place] [address] USARBC (Bld) [#/Vol]4.56 10*6/uLNormal3.90-5.60The [facility] Physician GroupComment on above:Performed By: #### SCAN CBC, LDH, CMP #### [place] [address] USARBC morphology finding Nom (Bld)NormalNormalNormAdventHealth Carrollwood Physician GroupComment on above:Performed By: #### SCAN CBC, LDH, CMP #### [place] [address] USAWBC (Bld) [#/Vol]17.4 10*3/uLHigh4.1-10.5The [facility] Physician GroupComment on above:Performed By: #### SCAN CBC, LDH, CMP #### [place] [address] USASerum or plasma albumin/globulin mass ratioOrdered By: Irene Solares on 16-38-7613Rbftrcl/Globulin [Mass ratio]Serum or plasma albumin/globulin mass ratioKettering Health Behavioral Medical Centererum or plasma anion gap determinationOrdered By: Irene Solares on 87-06-3434Utddp gap [Moles/Vol]Serum or plasma anion gap determination6.0-15.0K[facility]tering [facility] Behavioral Medical Centerodium [Moles/volume] in Serum or PlasmaOrdered By: Irene Solares on 84-21-1245Ynjvpi [Moles/Vol]Sodium [Moles/volume] in Serum or Xxiyme386-348 The [facility] HospitalUrea nitrogen [Mass/volume] in Serum or Plasma Ordered By: Irene Solares on 06-62-1665Earh nitrogen [Mass/Vol]Urea nitrogen [Mass/volume] in Serum or Plasma7-The [facility] HospitalWBC Auto (Bld) [#/Vol]Ordered By: Irene Solares on 28-56-8808IYQ (Bld) [#/Vol]Leukocytes [#/volume] in Blood by Automated countHigh4.1-10.5FMemorial Health SystemXR Hand - left 3 Viewson 69-15-6868Dettpqu Result: Three views of the left hand(s), PA/lateral/oblique, taken today and saved to the permanent medical record. Fracture distal phalanx middle finger well healed with advanced DIP joint arthritis.[facility] Knee - right 3 Viewson 11-91-7191Qvwmezz Result: Three views, bilateral PA weight-bearing, sunrise, lateral of the right knee(s) taken today and saved to the permanent medical record are reviewed. Mild medial compartment joint space narrowing. No acute osseous abnormalities.[facility] HospitalNo Panel Informationon 09-30-2024 Aracely Genet, ARRT 10/02/2024 9:51 PM L Inj/Asp: R knee on 09/30/2024 4:29 PM Indications: pain Details: 25 G needle, lateral approach Medications: 1.5 mg betamethasone acetate-betamethasone sodium phosphate 6 (3-3) MG/ML Consent was given by the patient. [facility] Hand - left 3 Viewson 02-75-6248Bijzlzczh Study observation (narrative)[facility] Knee - right 3 Viewson 09-30-2024 Radiology Study observation (narrative)[facility] Springs Medical CenterCNOVon 73-35-9353QTBA Office Visit (CARDAV) DARIUS VALERA ([id number]) 1960 M Date Time Provider Department 09/21/24 4:30 PM TONY ARMSTRONG During your visit today, we recorded the following information about you: Blood pressure Weight Height 142/82 93 kg 1.829 m Tony Armstrong PA-C 09/21/2024 5:03 PM Signed Heart and Vascular [place] Sissy Zepeda Department of Cardiovascular Medicine SECTION [...] the prior CC echocardiographic exam performed on 03/22/2022. There is [...] rare (<1.0%). Isolated VEs were occasional (1.4%, 29787), VE Couplets were rare (<1.0%, 56), and [...] months CONTACT INFORMATION: Tony Armstrong PA-C Cardiology [address] [place] [address] Dept: [phone] Dept Tony Armstrong PA-C 09/21/2024 4:57 PM Signed Please schedule appt with Dr. Tuttle in 6 months Referring Provider: ITA TUTTLE [[id number]] Allergies As of Date: 09/21/2024 (No Known Allergies) Date Reviewed: 09/21/2024 Reviewed by: Donte Iraheta II, MAX - Fully Assessed Reason for Visit: Follow Up [171] Primary V (more content not included)...NormalThe Christ HospitalMR HAND LEFT WO IV CONTRASTon 67-81-0985OB HAND LEFT WO IV CONTRASTEXAM/TECHNIQUEMR HAND LEFT WO IV CONTRAST, focused to the fourth digit. HISTORY: Left hand injury. Difficulty bending the fourth finger. Concern for flexor tendon injury. COMPARISON: Radiographs 07/24/2024. RESULT: Some limitations from motion. The apparent fracture along the dorsal aspect of the third digit DIP joint is better appreciated onthe recent radiographs, and partially obscured by motion on this study. Small amount of bone marrowedema involving the third digit middle phalanx at the base, likely reactive. Visualized flexor and extensor tendons appear intact, without significant tendon retraction within limits of motion. Smallamount of subchondral edema at the second MCP joint, probably degenerative in etiology or reactive.Mild areas of subcutaneous edema. Visualized musculature grossly unremarkable. IMPRESSION: Limitations from motion. Visualized flexor and extensor tendons appear grossly intact. ELECTRONICALLY SIGNED BY: Travis Bradley AvailableComment on above: Order Comment: No to all MRI QuestionsCBC W Auto Differential panel (Bld)on 64-56-3460Mzagzctnn (Bld) [#/Vol]0.1 10*3/uLNOMS HealthcareBasophils/100 WBC (Bld)0 %Not Estab.NOMS HealthcareEosinophils (Bld) [#/Vol]0.2 10*3/uLNOMS HealthcareEosinophils/100 WBC (Bld)1 %Not Estab.NOMS HealthcareErythrocyte distribution width (RBC) [Ratio]12.7 %11.6 - 15.4 %NOM HealthcareHematocrit (Bld) [Volume fraction]44.5 %37.5 - 51.0 %NOMS HealthcareHemoglobin (Bld) [Mass/Vol]15.1 g/dL13.0 - 17.7 g/dLNOMO HealthcareImmature granulocytes (Bld) [#/Vol]0 10*3/uLNOMS HealthcareImmature granulocytes/100 WBC (Bld)0 %Not Estab. NOM HealthcareLymphocytes (Bld) [#/Vol]12.7 10*3/uLHighNOMS Healthcare Lymphocytes/100 WBC (Bld)70 %Not Estab.[facility] Medical CenterMCH (RBC) [Entitic mass] 31.1 pg26.6 - 33.0 pgNONorthwest Medical CenterMCHC (RBC) [Mass/Vol]33.9 g/dL31.5 - 35.7 g/dLExcelsior Springs Medical CenterMCV (RBC) [Entitic vol]92 fL79 - 97 fLSPANISH FORK HOSPITAL Healthcare Monocytes (Bld) [#/Vol]0.6 10*3/uLNOMS HealthcareMonocytes/100 WBC (Bld)4 %Not Estab.[facility] HealthcareNeutrophils (Bld) [#/Vol]4.6 10*3/uLNOMS Healthcare Neutrophils/100 WBC (Bld)25 %Not Estab.[facility] HealthcarePlatelets (Bld) [#/Vol]119 10*3/uLLowNOMS HealthcareRBC (Bld) [#/Vol]4.85 10*6/uLNOMS HealthcareWBC (Bld) [#/Vol]18.2 10*3/uLHighNOMS HealthcareComprehensive metabolic panelon 07-29-2024 Albumin [Mass/Vol]4.5 g/dL3.9 - 4.9 g/dLNOMO HealthcareALP [Catalytic activity/Vol]102 U/LNOMS HealthcareALT [Catalytic activity/Vol]33 U/LNOMS HealthcareAST [Catalytic activity/Vol]33 U/LNOMS HealthcareBilirubin [Mass/Vol] 0.6 mg/dL0.0 - 1.2 mg/dLNOMO HealthcareCalcium [Mass/Vol]9.3 mg/dL8.6 - 10.2 mg/dLNOMO HealthcareChloride [Moles/Vol]101 mmol/L96 - 106 mmol/LNOMS Healthcare CO2 [Moles/Vol]27 mmol/L20 - 29 mmol/LNOMS HealthcareCreatinine [Mass/Vol]0.96 mg/dL0.76 - 1.27 mg/dLNOMS HealthcareGFR/1.73 sq M.predicted among non-blacks MDRD (S/P/Bld) [Vol rate/Area]88 mL/min/{1.73_m2}59 - PINF mL/min/1.73NOMS HealthcareGlobulin (S) [Mass/Vol]1.9 g/dL1.5 - 4.5 g/dLNOMO HealthcareGlucose [Mass/Vol]100 mg/uLEmhj15 - 99 mg/dLNOMO HealthcarePotassium [Moles/Vol]4 mmol/L 3.5 - 5.2 mmol/LNOMS HealthcareProtein [Mass/Vol]6.4 g/dL6.0 - 8.5 g/dLNOMO HealthcareSodium [Moles/Vol]139 mmol/L134 - 144 mmol/LNOMS HealthcareUrea nitrogen [Mass/Vol]20 mg/dL8 - 27 mg/dLNOMO HealthcareUrea nitrogen/Creatinine [Mass ratio]21 mg/mg10 - 24NONorthwest Medical CenterLactate dehydrogenaseon 96-34-7290UKK Lactate to pyruvate reaction [Catalytic activity/Vol]261HighExcelsior Springs Medical CenterNo Panel Informationon 19-58-7591Khtwdmaspqfivx and review of laboratory results AbnormalExcelsior Springs Medical CenterPerformed at: - [address] [id number] Finish Grinder: Chad Mccall PhD, Phone: [phone]. John's Riverside Hospital Specimen Status Reporton 01-36-4587Pcwoiqinheg Disk diffusion (KB) [[facility]]Comment NOMS HealthcareComment on above:[place] Lock CMP14 Default [place] Lock CMP14 Default A hand-written panel/profile was received from your office. In accordance with the [facility] Ambiguous Test Code Policy dated February 2003, we have completed your order by using the closest currently or formerly recognized AMA panel. We have assigned Comprehensive Metabolic Panel (14), Test Code #179601 to this request. If this is not the testing you wished to receive on this specimen, please contact the [facility] Client Inquiry/Technical Services Department to clarify the test order. We appreciate your business. XR ORBITS 1 TO 3 VIEWSon 66-42-0470MF ORBITS 1 TO 3 VIEWSXR ORBITS 1 TO 3 VIEWS/MRI CLEARANCE Reason for exam: MRI screening Prior comparative studies: None Findings: Screening Orbits: No radiopaque foreign bodies are seen to overlie the orbits on either side. Metallic dental appliance is noted.NormalNot AvailableXR finger LT 3rd digiton 31-69-0258IT finger LT 3rd digitPARKWOOD HOSPITAL Main [place] [address] [place] [address] XRay Report Signed Patient: Darius Valera MR#: [id number] 10 : 1960 Acct:[id number] Age/Sex: 63 / M ADM Date: 07/24/24 Loc: XDUCLY Room: Type: [facility] Attending Dr: Hannah Queen DIRECTOR STARS Copies to: Hannah Queen APRN Ordering Provider: [...] Donte Quevedo M.D.07/24/2024 11:26 AM Dictation Location: [place] [address] Transcribed By: [facility] 07/24/24 1126 Dictated By: Donte Quevedo II, MD 07/24/24 1124 Signed By: 07/24/24 1126[facility] Physician GroupXR THORACIC SPINE 3Von 10-83-7498[place]dj[place] [address] XRay Report Signed Patient: DARIUS VALERA MR#: [id number] : 1960 Acct:[id number] Age/Sex: 63 / M ADM Date: 06/28/24 Loc: RAD Attending Dr: LINDA JANSEN Ordering Physician: LINDA JANSEN Date of Service: 06/28/24 Procedure(s): XR thoracic spine 3V Accession Number(s): [id number] cc: LINDA JANSEN [place] [address] Patient Name: DARIUS VALERA MRN: [id number] date: 1960 Sex: M Assigned Patient Location: [facility] Current Patient Location: Accession/Order Number: [id number] Exam Date: 06/28/2024 17:55 Report Date: 06/29/2024 15:01 At the request of: LINDA JANSEN Procedure: XR thoracic spine 3V EXAMINATION: [...] moderate degenerative change Electronically authenticated by: KIRSTIE GUERRERO Date: 06/29/2024 15:01 Dictated By: Kirstie Guerrero M.D. Signed By: 06/29/24 1503 DD/ 1501 TD/TT: Coater Brake Linings:JACKadiologann, Radiologist, - 06/29/2024 [place] [address] XRay Report Signed Patient: DARIUS VALERA MR#: [id number] : 1960 Acct:[id number] Age/Sex: 63 / M ADM Date: 06/28/24 Loc: RAD Attending Dr: LINDA JANSEN Ordering Physician: LINDA JANSEN Date of Service: 06/28/24 Procedure(s): XR thoracic spine 3V Accession Number(s): [id number] cc: LINDA JANSEN [place] [address] Patient Name: DARIUS VALERA MRN: [id number] date: 1960 Sex: M Assigned Patient Location: [facility] Current Patient Location: Accession/Order Number: [id number] Exam Date: 06/28/2024 17:55 Report Date: 06/29/2024 15:01 At the request of: LINDA JANSEN Procedure: XR thoracic spine 3V EXAMINATION: [...] moderate degenerative change Electronically authenticated by: KIRSTIE GUERRERO Date: 06/29/2024 15:01 Dictated By: Kirstie Guerrero M.D. Signed By: 06/29/24 1503 DD/ 1501 TD/TT: Coater Brake Linings: [facility] HealthcareRadiology Study observation (narrative)[facility] HealthcareXR THORACIC SPINE 3VOrdered By: Radiologist Radiology on 44-25-3036[facility] Work Phone: VITAMIN D 25 HYDROXY,TOT+D2+D3on 04-07-1939[place] REINA VITAMIN D 25 OH53 ng/mL.[facility] HealthcareComment on above:Reference Range: All Ages: Target levels 30 - 100 VITAMIN D-2<1.0.[facility] HealthcareComment on above:This test was developed and its performance characteristics determined by [facility]. It has not been cleared or approved by the Food and Drug Administration. VITAMIN D-352 ng/mL.[facility] HealthcareComment on above:This test was developed and its performance characteristics determined by [facility]. It has not been cleared or approved by the Food and Drug Administration. Performed at: [employer] [employer] [address] [place] [id number] Finish Grinder: Johnnie Jansen MD, Phone: [phone] [facility] HealthcareFerritin [Mass/volume] in Serum or PlasmaOrdered By: Irene Solares on 83-03-8949Wvhvzlpl [Mass/Vol]Ferritin [Mass/volume] in Serum or Shlpqv37.9-336.2FMemorial Health SystemFerritin [Mass/Vol]63.9 ng/mL 23.9-336.2FMemorial Health SystemFolate [Mass/volume] in Serum or PlasmaOrdered By: Irene Solares on 59-81-6198Endqwm [Mass/Vol]Folate [Mass/volume] in Serum or Plasma>5.9The [facility] HospitalComment on above:Folate reference range: >5.9 ng/mlThe WHO technical consultation on folate and vitamin p48yttbgsskltbv has determined that folate concentrations lessthan 4 ng/ml are considered deficient.Folate [Mass/Vol]16.9 ng/mL>5.9The [facility] HospitalComment on above:Folate reference range: >5.9 ng/mlThe WHO technical consultation on folate and vitamin m13pqxbeqyygjsb has determined that folate concentrations lessthan 4 ng/ml are considered deficient.Iron [Mass/volume] in Serum or PlasmaOrdered By: Irene Solares on 86-83-5558Kvmq [Mass/Vol]Iron [Mass/volume] in Serum or Mmwyaw62-310KdbiusygzThe Bellevue HospitalIron [Mass/Vol]83 ug/dZ60-817EmpbstwruKettering Health Behavioral Medical Centererum or plasma 25-hydroxycalciferol measurement (mass/volume)Ordered By: Irene Solares on 67-01-941223788745-pvaspyzmfuykmf D2 [Mass/Vol]Serum or plasma 25-hydroxycalciferol measurement (mass/volume).The [facility] HospitalComment on above: This test was developed and its performance characteristicsdetermined by [facility]. It has not been cleared or approvedby the Food and Drug Administration. 25-hydroxyvitamin D2 [Mass/Vol]<1.0 ng/mL.[facility] Comment on above:This test was developed and its performance characteristicsdetermined by [facility]. It has not been cleared or approvedby the Food and Drug Administration.Serum or plasma 25-hydroxyvitamin D measurement (mass/volume)Ordered By: Irene Solares on 781659-bwpkxloptugnfe D [Mass/Vol]Serum or plasma 25-hydroxyvitamin D measurement (mass/volume). The [facility] HospitalComment on above:Reference Range:All Ages: Target levels 30 - [address]-xbrydiqkrjhbuw D [Mass/Vol]53 ng/mL.The [facility] HospitalComment on above:Reference Range:All Ages: Target levels 30 - 100 Serum or plasma calcidiol measurement (mass/volume)Ordered By: Irene Solares on 386273-hjeojyhwfbviyi D3 [Mass/Vol]Serum or plasma calcidiol measurement (mass/volume).The [facility] HospitalComment on above:This test was developed and its performance characteristicsdetermined by [facility]. It has not been cleared or approvedby the Food and Drug Administration.Performed at: [facility] [id number] [place], [place] [id number] Director: Johnnie Jansen MD, Phone: [phone]-rlbsbikxjunglv D3 [Mass/Vol]52 ng/mL. The [facility] HospitalComment on above:This test was developed and its performance characteristicsdetermined by [facility]. It has not been cleared or approvedby the Food and Drug Administration.Performed at: [facility] [id number] [place], [place] [id number] Director: Johnnie Jansen MD, Phone: [phone] or plasma iron binding capacity measurement (mass/volume) Ordered By: Irene Solares on 14-39-9336Yrxc binding capacity [Mass/Vol]Iron binding capacity [Mass/volume] in Serum or Xeqwkj168-896Lpheiedod[address] [place], [place] [address]Iron binding capacity [Mass/Vol]304 ug/hT972-096WrklovmfzKettering Health Behavioral Medical Centererum or plasma iron saturation measurement (mass fraction) Ordered By: Irene Sujatha on 74-94-9003Sycj saturation [Mass fraction]Iron saturation [Mass Fraction] in Serum or Mmeogj35-66KurwnnozyThe Bellevue HospitalIron saturation [Mass fraction]27.3 %20-50The [facility] HospitalTransferrin [Mass/volume] in Serum or PlasmaOrdered By: Irene Sujatha on 92-93-7924Uptusvwcylz [Mass/Vol]Transferrin [Mass/volume] in Serum or Plasma 203-362The [facility]vue HospitalTransferrin [Mass/Vol]217 mg/hD576-585 The [facility] HospitalVitamin B12 ser/plasOrdered By: Irene Sujatha on 50-61-8626Xecfejsns (Vitamin B12) [Mass/Vol]Vitamin B12 ser/kjdg113-867 The [facility] HospitalCobalamin (Vitamin B12) [Mass/Vol]554 pg/mL 180-914The [facility] HospitalAlanine aminotransferase [Enzymatic activity/volume] in Serum or PlasmaOrdered By: Christian Carlos on 04-20-2024 ALT [Catalytic activity/Vol]30 U/L7-52The [facility] HospitalAlbumin [Mass/volume] in Serum or Plasma by Bromocresol green (BCG) dye binding metho Ordered By: Christian Carlos on 84-03-2331Oyasjmh BCG dye [Mass/Vol]4.1 g/dL 3.5-5.7FMemorial Health SystemAlkaline phosphatase [Enzymatic activity/volume] in Serum or PlasmaOrdered By: Christian Carlos on 04-20-2024 ALP [Catalytic activity/Vol]79 U/J97-839MhypuhcxhThe [facility] Hospital Anisocytosis LM Ql (Bld)Ordered By: Christian Carlos on 29-35-2702Oqqadnfkbpuu Ql (Bld)SlightThe Bellevue HospitalAnisocytosis Ql (Bld)Anisocytosis [Presence] in Blood by Light microscopyThe [facility]vue Hospital Aspartate aminotransferase [Enzymatic activity/volume] in Serum or PlasmaOrdered By: Christian Carlos on 88-12-3851JDP [Catalytic activity/Vol]29 U/L13-39 The [facility] HospitalBasophils Auto (Bld) [#/Vol]Ordered By: Christian Carlos on 34-75-4496Cctmpbqtm (Bld) [#/Vol]0.0 10*3/uL0.0-0.2FMemorial Health SystemBasophils/100 WBC Auto (Bld)Ordered By: Christian Carlos on 25-69-3269Hyguxegbl/100 WBC (Bld)0.3 %.[facility] Bilirubin.total [Mass/volume] in Serum or PlasmaOrdered By: Christian Carlos on 93-71-4380Ncegspacm [Mass/Vol]1.0 mg/dL0.3-1.0[facility] Calcium [Mass/volume] in Serum or PlasmaOrdered By: Christian Carlos on 85-98-8949Rcehpvo [Mass/Vol]8.8 mg/dL8.6-10.3FMemorial Health System Carbon dioxide, total [Moles/volume] in Serum or PlasmaOrdered By: Christian Carlos on 49-67-0842EU9 [Moles/Vol]31.5 mmol/LHigh21.0-31.0The [facility] HospitalChloride [Moles/volume] in Serum or PlasmaOrdered By: Christian Carlos on 91-07-1980Rvcsgzcq [Moles/Vol]105 mmol/E84-511VrviyiqkvThe Bellevue HospitalComprehensive metabolic panelon 22-67-4407Vrelqaa [Mass/Vol]4.1 g/dL3.5 - 5.7 g/dLNOMO HealthcareAlbumin/Globulin [Mass ratio]2.2 {ratio}[facility]OMS HealthcareALP [Catalytic activity/Vol]79 U/L34 - 104 U/LNOMS HealthcareALT [Catalytic activity/Vol]30 U/L7 - 52 U/LNOMS HealthcareAnion gap [Moles/Vol]9.3 mmol/L6.0 - 15.0NOMS HealthcareAST [Catalytic activity/Vol]29 U/L13 - 39 U/LNOMS HealthcareBilirubin [Mass/Vol]1.0 mg/dL0.3 - 1.0 mg/dLNOMS HealthcareCalcium [Mass/Vol]8.8 mg/dL8.6 - 10.3 mg/dLNOMS HealthcareChloride [Moles/Vol]105 mmol/L 98 - 107 mmol/LNOMS HealthcareCO2 [Moles/Vol]31.5 mmol/LHigh21.0 - 31.0 mmol/L [facility] HealthcareCreatinine (U) [Mass/Vol]0.90 mg/dL0.70 - 1.30 mg/dLNOMS HealthcareCREATININE CLR CALC WJHWAKDH36.01NOMS HealthcareGFR/1.73 sq M.predicted MDRD (S/P/Bld) [Vol rate/Area]mL/min/{1.73_m2}[facility] Globulin (S) [Mass/Vol]1.9 g/dLNOMS HealthcareGlucose [Mass/Vol]95 mg/dL70 - 100 mg/dLNOMS HealthcareComment on above:Random Glucose Reference Range is dependent on time and content of last meal. Glucose of more than 200 mg/dL in a nonstressed, ambulatory subject supports the diagnosis of Diabetes Mellitus. ADA recommended reference range Interpretation and review of laboratory resultsAbnormalNOMS HealthcarePotassium [Moles/Vol]3.8 mmol/L3.5 - 5.1 mmol/LNOMS HealthcareProtein [Mass/Vol]6.0 g/dL Low6.4 - 8.9 g/dLNOMS HealthcareSodium [Moles/Vol]142 mmol/L136 - 145 mmol/LNOMS HealthcareUrea nitrogen [Mass/Vol]20 mg/dL7 - 25 mg/dLNOMO HealthcareCreatinine [Mass/volume] in Serum or PlasmaOrdered By: Christian Carlos on 04-20-2024 Creatinine [Mass/Vol]0.90 mg/dL0.70-1.30[facility] Eosinophils Auto (Bld) [#/Vol]Ordered By: Christian Carlos on 04-20-2024 Eosinophils (Bld) [#/Vol]0.2 10*3/uL0.0-0.45[facility] Eosinophils/100 WBC Auto (Bld)Ordered By: Christian Carlos on 04-20-2024 Eosinophils/100 WBC (Bld)1.4 %.The Bellevue HospitalErythrocyte distribution width Auto (RBC) [Ratio]Ordered By: Christian Carlos on 04-20-2024 Erythrocyte distribution width (RBC) [Ratio]13.9 %12.0-14.8The [facility]vue HospitalGlobulin Calc (S) [Mass/Vol]Ordered By: Christian Carlos on 60-43-6885Tcjsgrgl (S) [Mass/Vol]1.9 g/dLThe [facility] Hospital Glucose [Mass/volume] in Serum or PlasmaOrdered By: Christian Carlos on 15-20-3174Rfdgvaf [Mass/Vol]95 mg/yQ93-546PzawwzqgqThe [facility]vue Hospital Comment on above:ADA recommended reference rangeRandom Glucose Reference Range is dependent on time and content of last meal. Glucose of more than 200 mg/dL in a nonstressed, ambulatory subject supports the diagnosisof Diabetes Mellitus. Hematocrit Auto (Bld) [Volume fraction]Ordered By: Christian Carlos on 47-19-9058Frfzeqdxkw (Bld) [Volume fraction]43.3 %38.8-50.0The [facility] HospitalHemoglobin [Mass/volume] in BloodOrdered By: Christian Carlos on 35-25-6101Aczpdtlkej (Bld) [Mass/Vol]14.8 g/dL13.0-17.0The [facility] HospitalLDH Lactate to pyruvate reaction [Catalytic activity/Vol]on 06-67-2630XRR LACTATE MZRBZIVQBJYVD165 U/L140 - 271 U/LNOMS HealthcareLactate dehydrogenase [Enzymatic activity/volume] in Serum or Plasma by Lactate to py Ordered By: Christian Carlos on 78-77-8898VZY Lactate to pyruvate reaction [Catalytic activity/Vol]212 U/M695-524IqagkrsekThe [facility] Hospital Leukocytes [#/volume] corrected for nucleated erythrocytes in Blood by Automated counOrdered By: Christian Carlos on 59-79-9618KVY corrected for nucl RBC Auto (Bld) [#/Vol]13.3 10*3/uLHigh4.1-10.5FMemorial Health System Lymphocytes Auto (Bld) [#/Vol]Ordered By: Christian Carlos on 04-20-2024 Lymphocytes (Bld) [#/Vol]9.9 10*3/uLHigh1.00-4.8The [facility] HospitalLymphocytes/100 WBC Auto (Bld)Ordered By: Crhistian Carlos on 04-20-2024 Lymphocytes/100 WBC (Bld)74.8 %.The [facility] HospitalMCH Auto (RBC) [Entitic mass]Ordered By: Christian Carlos on 99-48-6552RVV (RBC) [Entitic mass]31.2 pg27.5-35.2FMemorial Health SystemMCHC Auto (RBC) [Mass/Vol] Ordered By: Christian Carlos on 14-94-2334SUIS (RBC) [Mass/Vol]34.2 g/dL 32.5-35.6FMemorial Health SystemMCV Auto (RBC) [Entitic vol]Ordered By: Christian Carlos on 33-93-1165SPO (RBC) [Entitic vol]91.4 fL83.5-101 [facility] HospitalMicrocytes LM Ql (Bld)Ordered By: Christian Carlos on 62-86-1078Hgzafgzrij Ql (Bld)SlightThe Bellevue HospitalMicrocytes Ql (Bld)Microcytes [Presence] in Blood by Light microscopy [facility] HospitalMonocytes Auto (Bld) [#/Vol]Ordered By: Christian Carlos on 88-78-4881Yitaxymqw (Bld) [#/Vol]0.5 10*3/uL0.0-0.8The [facility] HospitalMonocytes/100 WBC Auto (Bld)Ordered By: Christian Carlos on 78-67-3108Reypzdano/100 WBC (Bld)3.7 %.[facility] Neutrophils Auto (Bld) [#/Vol]Ordered By: Christian Carlos on 04-20-2024 Neutrophils (Bld) [#/Vol]2.6 10*3/uL1.8-7.7FMemorial Health System Neutrophils/100 WBC Auto (Bld)Ordered By: Christian Carlos on 04-20-2024 Neutrophils/100 WBC (Bld)19.8 %.[facility] HospitalNo Panel Informationon 16-16-9422UJHT HealthcareNo Panel InformationOrdered By: Christian Carlos on 30-54-1491Qcsktpnmf GFR (CKD-EPI)> 60.0 mL/MinThe Bellevue HospitalPharmacy Creatinine Clearance (Chem91.01The [facility] HospitalNucleated erythrocytes [Presence] in Blood by Automated countOrdered By: Christian Carlos on 45-80-4687Rpzqyunbl RBC Auto Ql (Bld)0.3 /100{WBC}0-0.5 [facility] HospitalPlatelet adequacy [Presence] in Blood by Light microscopyOrdered By: Christian Carlos on 64-01-1608Kshupckvc LM Ql (Bld) DecreasedNormOhioHealth Berger HospitalPlatelet mean volume Auto (Bld) [Entitic vol]Ordered By: Christian Carlos on 32-24-4742Neqqqbak mean volume (Bld) [Entitic vol]8.5 fL6.6-10.1FMemorial Health SystemPlatelet morphology finding [Identifier] in BloodOrdered By: Christian Carlos on 87-78-2219Wwqrdaxu morphology finding Nom (Bld)NormalNormOhioHealth Berger HospitalPlatelets Auto (Bld) [#/Vol]Ordered By: Christian Carlos on 22-07-5703Wyogjnqap (Bld) [#/Vol]108 10*3/jNPne772-909AekrcjtkeThe Bellevue HospitalPotassium [Moles/volume] in Serum or PlasmaOrdered By: Christian Carlos on 85-85-8123Odpsftkxl [Moles/Vol]3.8 mmol/L3.5-5.1FMemorial Health SystemProtein [Mass/volume] in Serum or PlasmaOrdered By: Christian Carlos on 81-24-3335Lcorduq [Mass/Vol]6.0 g/dLLow6.4-8.9[facility] RBC Auto (Bld) [#/Vol]Ordered By: Christian Carlos on 58-82-7412AJM (Bld) [#/Vol]4.74 10*6/uL3.90-5.60The [facility] HospitalRBC morphology Ordered By: Christian Carlos on 60-55-3480JTE morphology finding Nom (Bld)N/A [facility] Centererum or plasma albumin/globulin mass ratio Ordered By: Christian Carlos on 24-85-9712Amwxfmp/Globulin [Mass ratio]2.2 {ratio}[facility] Medical Centererum or plasma anion gap determination Ordered By: Christian Carlos on 44-93-5562Srwkh gap [Moles/Vol]9.3 mmol/L 6.0-15.0[facility] Medical Centerodium [Moles/volume] in Serum or PlasmaOrdered By: Christian Carlos on 11-88-2888Uqteke [Moles/Vol]142 mmol/L 136-145The [facility] HospitalUrea nitrogen [Mass/volume] in Serum or PlasmaOrdered By: Christian Carlos on 85-35-7640Fgmv nitrogen [Mass/Vol]20 mg/dL7-25The [facility] HospitalWBC Auto (Bld) [#/Vol]Ordered By: Christian Carlos on 11-16-4548ETK (Bld) [#/Vol]13.3 10*3/uLHigh4.1-10.5 [facility] HospitalNo Panel InformationOrdered By: Christian Carlos on 23-46-7317PXB CommentSee commentThe [facility] Hospital Comment on above:Slide referred to pathologist for reviewSmudge cell detection Ordered By: Christian Carlos on 88-27-1672Fmczxq cells LM Ql (Bld)Moderate [facility] Centermudge cells [Presence] in Blood by Light microscopyOrdered By: Christian Carlos on 86-00-8446Jztdas cells LM Ql (Bld) Smudge cell detectionThe Bellevue HospitalConsultation Noteon 27-73-6857Hxshhvobkncz [id number]#1.00TIFF [facility] HospitalComment on above:Other Comment: FILING ERROR CRRECG COMPLETEon 98-03-2632Jtugry Rate71 BPMCleClermont County HospitalCalculated P Axis12 degreesCleuk healthcare ClinicCalculated R [place]-15 degreesCleuk healthcare ClinicCalculated T Axis28 degreesCleClermont County HospitalP-R Tjczrtql677 msCleveland ClinicQRS Ddcrzvnt96 msCleveland ClinicQT Jqmcaxpg151 msCleveland ClinicQTC Calculation ([place])439 msCleveland ClinicVentricular Rate71 BPMUniversity Hospitals Geauga Medical Center for Release of Medical Recordson 02-99-9814Ppwr for Release of Medical Records [id number]#1.00[facility] HospitalLab Reportson 97-82-6214Zyp Reports [id number]#1.00[facility] Hospitalcreenson 07-58-4452Hnelgad [id number]#1.00[facility] HospitalAmbulatory Visit Summaryon 46-07-3330Ufhhydndzw Visit Summary DARIUS VALERA :1960 Visit Date:06/02/2023 Ambulatory Visit Instructions Your Diagnosis Ureteral stone with hydronephrosis Erectile dysfunction Tests Performed Urnls Dip Stick Auto w/o Microscopy POC 41729 Your Care Team Attending Physician - Stevenson LYNCH, Iesha Wen This Is Your Medications List amlodipine aspirin (aspirin 81 mg oral tablet) atenolol (atenolol 100 mg Tab) hydrochlorothiazide-lisinopril (hydrochlorothiazide-lisinopril 12.5 mg-20 mg Tab) omega-3 polyunsaturated fatty acids ([place]-3) potassium chloride (Klor-Con) Discharge Vitals Heart Rate [...] 1 Tablets By Mouth Every day Unchanged hydrochlorothiazide-lisinopril (hydrochlorothiazide-lisinopril 12.5 mg-20 mg Tab) 1 Tablets By Mouth Every day Unchanged omega-3 polyunsaturated fatty acids ([place]-3) Unchanged potassium chloride (Klor-Con) Test Results Urnls Dip Stick Auto w/o Microscopy POC 49276 (06/02/2023) Bilirubin Urine Dipstick - Negative Blood Urine Dipstick - Trace-intact Glucose Urine Dipstick - Negative Ketones Urine Dipstick - Negative Leukocytes Urine Dipstick - Negative Nitrite Urine Dipstick - Negative Protein Urine Dipstick - Negative Specific [place] Urine Dipstick - 1.015 Urine Appearance Urine [...] apnea Ureteral stone Ureteral stone with hydronephrosis [facility] Education 06-02-2023 Patient EducationUrology Erectile Dysfunction Erectile dysfunction (ED) is the inability to get or keep an erection in order to have sexual intercourse. ED is considered a symptom of an underlying disorder and is not considered a disease. ED mayinclude: ? Inability to get an erection. ? [...] The tube is inserted into the opening atthe tip of the penis, which is the opening of the urethra. A tiny pellet of medicine is put in the urethra. The pellet dissolves and enhances erectile function. This is also called MUSE (medicated urethral system for erections) therapy. ? Vacuum pump. This is a pump with a ring on it. The pump and ring are placed on the penis and usedto create pressure that helps the penis become [...] these instructions at home: Medicines ? Take jskz-zgq-hmmiyvq and prescription medicines only as told by [...] to prevent headaches while taking ED medicines. Thesemedicines may cause a sudden headache due to the increase in blood flow in your body. General instructions ? Exercise regularly, as directed by your health care provider. Work with your health care providerto lose weight, if needed. ? Do not use any products that contain nicotine or tobacco. These products include cig (more content not included)...[facility] Office/Clinic Noteon 65-33-7130Ddwfhvw Office/Clinic NoteChief Complaint follow up to [facility]/consult HPI Staff 62 year old male seen at [facility] consult for Lt. UVJ stone,hydro,renal colic, GRACE [...] by PCP Denies medical issues, hx of ND, stroke or DM2. On ASA 81mg Portions of this record may have been created with voice recognition artificial intelligence software, specifically [employer], [employer] and or [employer]. Substitutions may have occurred due to the inherent limitations of voice recognition and artificial intelligence software. 1. Ureteral stone with hydronephrosis (N13.2: Hydronephrosis with renal and ureteral calculous obstruction) Last stone event 10 years ago, denies surgical intervention. Pt presented to [facility] ER 04/14/23 with uncontrolled left flank pain and nausea. Initially diagnosed w/a 3 mm left UVJ stone with mild [...] 24-hour urine analysis, continued surveillance with imaging in6 to 12 months or expectant management. The [...] wild game, goose, liver, duck, turkey, chicken, redmeat, pork, and seafood should be consumed in moderation. -Restrict sodium to 2.4 grams a day. 1.5 g of sodium a day in those with HTN, Americans, ormiddle-older aged adults. -Maintain normal calcium oxalate intake fro (more content not included)...Normal [facility] CampusComment on above:Result Comment: Electronically Signed By: Iesha Gamino MD\.br\Date and Time Signed: 06/02/23 17:30 EDT\.br\Electronically Co-Signed By: Patience Castellon.br\Date and Time Co- Signed: 06/02/23 16:04 EDTRAD - Ultrasound Reporton 52-79-1006XBG - Ultrasound [id number]#1.00CD:127[facility] HospitalConsultation Noteon 87-95-6341Twedobsggmkg Note [id number]#1.00CD:127NormalFisher Sudheer Medical CenterInsurance Correspondence Officeon 37-65-8776Ipfajslms Correspondence [id number]#1.00CD:[address] [place], [place] [address]Lab Reportson 33-90-3150Xcz Reports [id number]#1.00CD:[address] [place], [place] [address]Consultation Noteon 35-05-6513Eumvgqcktalb Note [id number]#1.00CD:[address] [place], [place] [address]Operative Reporton 26-15-0668Dtrxinhdi Report [id number]#1.00CD:[address] [place], [place] [address]RAD - MISCon 84-25-3242XPL - MISC [id number]#1.00CD:[address] [place], [place] [address]RAD - Ultrasound Reporton 22-78-4410OFO - Ultrasound Report [id number]#1.00CD:[address] [place], [place] [address]RAD - CT Reporton 71-77-4859EQK - CT Report [id number]#1.00CD:[address] [place], [place] [address]Consultation Noteon 05-85-8939Yqexromvhrun Note [id number]#1.00CD:[address] [place], [place] [address]MRI ANKLE RT WO CONon 30-64-5360MVM ANKLE RT WO CONEXAM: MRI ANKLE RT WO CON HISTORY: Contusion of right ankle continued [...] Electronically authenticated by: JANAY PANDYA Date: 2023-01-22 07:40[facility] AUTO DIFFon 99-77-6458AZAK #0.0 103/ulNormal0.0-0.1[facility] Medical CenterComment on above:Performed By: #### CBC #### [facility] [address] [place] [address] Dr. Gautam VanBasophils/100 WBC (Bld)0.4 %Normal0.2-2.0[facility] Comment on above:Performed By: #### CBC #### [facility] [address] [place] [address] Dr. Gautam Lowe #0.1 103/ulNormal0.0-0.7The [facility] HospitalComment on above: Performed By: #### CBC #### [facility] [address] [place] [address] Dr. Gautam Gonzalezosinophils/100 WBC (Bld)1.3 %Normal0.9-7.0[facility] Comment on above:Performed By: #### CBC #### [facility] [address] [place] [address] Dr. Gautam Gonzalezrythrocyte distribution width (RBC) [Ratio]12.6 %Gmnfin68.0-15.0 [facility] Medical CenterComment on above:Performed By: #### CBC #### [facility] [address] [place], [place] [id number] Dr. Gautam VanHematocrit (Bld) [Volume fraction]47.0 %Gaqrja11.0-54.0The [facility] HospitalComment on above:Performed By: #### CBC #### [facility] [address] [place] [address] Dr. Gautam VanHemoglobin (Bld) [Mass/Vol]16.1 g/xDCmggvm66.0-18.0The [facility] HospitalComment on above:Performed By: #### CBC #### [facility] [address] [place] [address] Dr. Gautam VanIG #0.02 10e3/ulNormal0.00-0.03The [facility] HospitalComment on above:Performed By: #### CBC #### [facility] [address] [place] [address] Dr. Gautam Romano %0.2 %Normal0.0-0.5The [facility] HospitalComment on above: Performed By: #### CBC #### [facility] [address] [place] [address] Dr. Gautam Ford #7.0 103/ulCritically high1.2-3.8The [facility] Comment on above:Performed By: #### CBC #### [facility] [address] [place] [address] Dr. Gautam Borregomphocytes/100 WBC (Bld)64.7 %Critically high20.5-60.0The [facility] HospitalComment on above:Performed By: #### CBC #### [facility] [address] [place] [address] Dr. Gautam VanMANUAL DIFF REQNONormalThe [facility] HospitalComment on above: Performed By: #### CBC #### [facility] [address] [place] [address] Dr. Gautam Lyn (RBC) [Entitic mass]30.7 mdKxxlcl59.9-34.0The [facility] HospitalComment on above:Performed By: #### CBC #### [facility] [address] [address] [address] Gautam AguilarHC (RBC) [Mass/Vol]34.3 g/eQYcaqjc36.9-35.2The [facility] HospitalComment on above:Performed By: #### CBC #### [facility] [address] [place] [address] Dr. Gautam AguilarV (RBC) [Entitic vol]89.7 kVYcfrvw19.0-94.0The [facility] HospitalComment on above:Performed By: #### CBC #### [facility] [address] [place] [address] Dr. Gautam Kenney #0.5 103/ulNormal0.3-0.8The [facility] HospitalComment on above:Performed By: #### CBC #### [facility] [address] [place] [address] Dr. Gautam Westbrookocytes/100 WBC (Bld)4.6 %Normal1.7-12.0The [facility] Comment on above:Performed By: #### CBC #### [facility] [address] [place] [address] Dr. Gautam Mercer #3.1 103/ulNormal1.4-6.5The [facility] HospitalComment on above:Performed By: #### CBC #### [facility] [address] [place] [address] Dr. Gautam Garzautrophils/100 WBC (Bld)28.8 %Critically low43.0-75.0The [facility] HospitalComment on above:Performed By: #### CBC #### [facility] [address] [place] [address] Dr. Gautam Bennettlet mean volume (Bld) [Entitic vol]10.6 fLNormal9.5-13.5The [facility] HospitalComment on above:Performed By: #### CBC #### [facility] [address] [place] [address] Dr. Gautam VanPLT144 103/ulCritically axs901-413Lad [facility] HospitalComment on above:Performed By: #### CBC #### [facility] [address] [address] [address] Gautam VanRBC5.24 106/ulNormal4.70-6.10The [facility] HospitalComment on above:Performed By: #### CBC #### [facility] [address] [address] [address] Gautam VanWBC10.8 103/ulNormal4.0-11.0The [facility] HospitalComment on above:Performed By: #### CBC #### [facility] [address] [address] [address] Gautam VanLIPID PROFILEon 14-18-9695PDCQ-HDL RATIO NORMSEE [facility] HospitalComascension [facility] on above:Result Comment: 3.3 - 4.4 LOW RISK 4.4 - 7.1 AVERAGE RISK 7.1 - 11.0 MODERATE RISK >11.0 HIGH RISKPerformed By: #### LIPID, T4, TSH, CMP ####[facility] [address] [address]Dr. Gautam ChangCholesterol [Mass/Vol]183 mg/dLNormal<=200The [facility] on above:Performed By: #### LIPID, T4, TSH, CMP ####[facility] [address] [address]Dr. Gautam Van Cholesterol in HDL [Mass/Vol]70 mg/dLCritically ejts95-58JvvKettering Health – [facility] Center Comment on above:Performed By: #### LIPID, T4, TSH, CMP ####[facility] [address] [address]Dr. Gautam VanCholesterol in LDL [Mass/Vol]104.2 mg/dLProMedica Defiance Regional HospitalComascension st. john hospital on above:Performed By: #### LIPID, T4, TSH, CMP ####[facility] [address] [address]Dr. Gautam ChangCholesterol.total/Cholesterol in HDL [Mass ratio]2.6 {ratio}NormalThe [facility] HospitalComascension [facility] on above:Performed By: #### LIPID, T4, TSH, CMP ####[facility] [address] [address]Dr. Gautam VanHDL NORMAL> or = 60 mg/dl - LOW CARDIOVASCULAR RISK <40 mg/dl - HIGH CARDIOVASCULAR RISKOhioHealth Hardin Memorial Hospital on above:Performed By: #### LIPID, T4, TSH, CMP ####[facility] [address] [address]Dr. Gautam ChangLDL CALC NORMALSEE BELOWProMedica Defiance Regional HospitalComment on above:Result Comment: <100 mg/dl OPTIMAL 100 - 129 mg/dl NEAR OR ABOVE OPTIMAL 130 - 159 mg/dl BORDERLINE HIGH 160 - 189 mg/dl HIGH >190 mg/dl VERY HIGHPerformed By: #### LIPID, T4, TSH, CMP ####[facility] [address] [address]Dr. Gautam VanTriglyceride [Mass/Vol]44 mg/dLNormal <=150The [facility] HospitalComasc[facility] on above:Performed By: #### LIPID, T4, TSH, CMP ####[facility] [address] [address]Dr. Gautam VanVLDL CALC8.8 mg/dLNoGuernsey Memorial HospitalComment on above: Performed By: #### LIPID, T4, TSH, CMP ####[facility] [address] [address]DrCarrie VanPROF 14(COMP METB)on 12-27-2022 Albumin [Mass/Vol]4.0 g/dLNormal3.4-5.0The [facility] HospitalComment on above: Performed By: #### LIPID, T4, TSH, CMP #### [facility] [address] [address] [address] Gautam VanAlbumin/Globulin [Mass ratio]1.2 {ratio}NormalThe [facility] on above:Performed By: #### LIPID, T4, TSH, CMP #### [facility] [address] [address] [address] Gautam Gleason [Catalytic activity/Vol]104 U/GQwvtca13-872Hkh [facility] HospitalComment on above:Performed By: #### LIPID, T4, TSH, CMP #### [facility] [address] [address] [address] Gautam Herrmann [Catalytic activity/Vol]36 U/FHkvhzv89-75Xqr [facility] HospitalComment on above:Performed By: #### LIPID, T4, TSH, CMP #### [facility] [address] [place] [address] Dr. Gautam Ovalleon gap [Moles/Vol]9.8 mmol/LNormalThe [facility] HospitalComment on above:Performed By: #### LIPID, T4, TSH, CMP #### [facility] [address] [place] [address] Dr. Gautam Westfall [Catalytic activity/Vol]22 U/JBujdux31-05Zer [facility] HospitalComment on above:Performed By: #### LIPID, T4, TSH, CMP #### [facility] [address] [place] [address] Dr. Guatam VanBilirubin [Mass/Vol]0.9 mg/dLNormal0.2-1.0[facility] Comment on above:Performed By: #### LIPID, T4, TSH, CMP #### [facility] [address] [place] [address] Dr. Gautam VanCalcium [Mass/Vol]9.1 mg/dLNormal8.5-10.1[facility] Comment on above:Performed By: #### LIPID, T4, TSH, CMP #### [facility] [address] [place] [address] Dr. Gautam VanChloride [Moles/Vol]103 mmol/AEjpbwy59-989PacKettering Health – [facility]in Medical Center Comment on above:Performed By: #### LIPID, T4, TSH, CMP #### [facility] [address] [place] [address] Dr. Gautam VanCO2 [Moles/Vol]30.6 mmol/TZimhhg01.0-32.0The [facility] Comment on above:Performed By: #### LIPID, T4, TSH, CMP #### [facility] [address] [address] [address] Gautam VanCreatinine [Mass/Vol]0.81 mg/dLNormal0.70-1.30The [facility] HospitalComment on above:Performed By: #### LIPID, T4, TSH, CMP #### [facility] [address] [address] [address] Gautam GonzalezGFR-AF [place] CITIZ[place]>60Normal>=60The [facility] HospitalComment on above:Performed By: #### LIPID, T4, TSH, CMP #### [facility] [address] [address] [address] Gautam GonzaelzGFR-NON AF [place] CITIZ[place]>60Normal>=60The [facility] HospitalComment on above:Performed By: #### LIPID, T4, TSH, CMP #### [facility] [address] [place] [address] Dr. Gautam VanGlobulin (S) [Mass/Vol]3.3 g/dLNormalThe [facility] HospitalComment on above:Performed By: #### LIPID, T4, TSH, CMP #### [facility] [address] [place] [address] Dr. Gautam VanGlucose [Mass/Vol]103 mg/eNEifwrt29-535Syt [facility] Comment on above:Performed By: #### LIPID, T4, TSH, CMP #### [facility] [address] [place] [address] Dr. Gautam VanPotassium [Moles/Vol]4.4 mmol/LNormal3.5-5.1The [facility] Comment on above:Performed By: #### LIPID, T4, TSH, CMP #### [facility] [address] [place] [address] Dr. Gautam VanProtein [Mass/Vol]7.3 g/dLNormal6.4-8.2The [facility] Comment on above:Performed By: #### LIPID, T4, TSH, CMP #### [facility] [address] [address] [address] Gautam VanSodium [Moles/Vol]139 mmol/XJpsinq740-660Mua [facility] Comment on above:Performed By: #### LIPID, T4, TSH, CMP #### [facility] [address] [address] [address] Gautam Jacobs nitrogen [Mass/Vol]16.0 mg/dLNormal7.0-18.0[facility] CenterComment on above:Performed By: #### LIPID, T4, TSH, CMP #### [facility] [address] [address] [address] Gautam Jacobs nitrogen/Creatinine [Mass ratio]19.8 mg/mgNormalThe [facility] HospitalComment on above:Performed By: #### LIPID, T4, TSH, CMP #### [facility] [address] [address] [address] Gautam Sweeney4on 56-69-8091M6 [Mass/Vol]9.10 ug/dLNormal4.50-12.10The [facility] HospitalComment on above:Performed By: #### LIPID, T4, TSH, CMP ####[facility] [address] [place], [place] [address]PkDr. Gautam VanTSHon 66-28-1384NBQ7.043 uIU/mLNormal0.358-3.740[facility] Comment on above:Performed By: #### LIPID, T4, TSH, CMP #### [facility] [address] [address] [address] Gautam VanCT FOOT RT WO CONon 47-60-2079ZL FOOT RT WO CONEXAMINATION: CT FOOT RT WO CON, CT ANKLE [...] foot or ankle Electronically authenticated by: KIRSTIE GUERRERO Date: 2022-11-17 08:[address] [place] [address] metabolic 2000 panelon 01-78-7614Atklp gap [Moles/Vol]9 mmol/LNormal9-18Avon HospitalComment on above:Order Comment: Specimen Type: BLOOD SPECIMEN Ordering Facility: [facility] Address: [address] [place], [place] [address]Performed By: #### 07838-8, 85027-8 #### [facility] CLIA [id number] [address] [place] [address] [place] OF AMERICACalcium [Mass/Vol]9.4 mg/dLNormal8.5-10.2 [facility] HospitalComment on above:Order Comment: Specimen Type: BLOOD SPECIMEN Ordering Facility: [facility] Address: [address] [place], [place] [address]Performed By: #### 38208-6, 85188-9 #### [facility] CLIA [id number] [address] [place] [address] [place] AMERICAChloride [Moles/Vol]101 mmol/LNormal 97-105Av HospitalComment on above:Order Comment: Specimen Type: BLOOD SPECIMEN Ordering Facility: [facility] Address: [address] [place], [place] [address]Performed By: #### 95013-4, 38348-2 #### [facility] CLIA [id number] [address] [place] [address] [place] AMERICACO2 [Moles/Vol]30 mmol/STfshfv47-91Bruq HospitalComment on above:Order Comment: Specimen Type: BLOOD SPECIMEN Ordering Facility: [facility] Address: [address] [place], [place] [address]Performed By: #### 10199-1, 01149-0 #### [facility] CLIA [id number] [facility] [place] [address] [place] AMERICACreatinine [Mass/Vol]1.01 mg/dLNormal 0.73-1.22Bethel HospitalComment on above:Order Comment: Specimen Type: BLOOD SPECIMEN Ordering Facility: [facility] Address: [address] [place], [place] [address]Performed By: #### 00317-5, 75607-1 #### [facility] CLIA [id number] [address] [place] [address] [place] OF AMERICAESTIMATED GLOMERULAR FILTRATION RATE84 mL/min/1.73m???Normal>=60AvBedford Regional Medical CenterComment on above:Order Comment: Specimen Type: BLOOD SPECIMEN Ordering Facility: [facility] Address: [address] [place], [place] [address]Result Comment: Estimated Glomerular Filtration Rate (eGFR) is calculated using the 2020 CKD-EPI cre atinine equation. This equation utilizes serum creatinine, sex, and age as parameters. The creatinine assay has traceable calibration to isotope dilution- mass spectrometry. Refer to KDIGO guidelines for clinical interpretation. In patients with unstable renal function, e.g. those with acute kidney injury, the eGFR may not accurately reflect actual GFR.Performed By: #### 64023-3, #### [facility] CLIA [id number] [address] [place] [address] [place] AMERICAGlucose [Mass/Vol]92 mg/xAYxvrkm64-44Vtbe HospitalComment on above:Order Comment: Specimen Type: BLOOD SPECIMEN Ordering Facility: [facility] Address: [address] [place] [address]Result Comment: The [employer] Diabetes Association (ADA) provides guidance for cutoff [...] Standards of Medical Care in Diabetes 2016, [employer]. Diabetes Care. 2016.39(Suppl 1).Performed By: #### 00513-8, 56632-4 #### [facility] CLIA [id number] [address] [place] [address] [place] AMERICAPotassium [Moles/Vol]4.4 mmol/LNormal 3.7-5.1Avon HospitalComment on above:Order Comment: Specimen Type: BLOOD SPECIMEN Ordering Facility: [facility] Address: [address] [place], [place] [address]Performed By: #### 10622-7, 77784-0 #### [facility] [place] [id number] [place] [address] [place] AMERICASodium [Moles/Vol]140 mmol/BPrxjhs866-907 [facility] HospitalComment on above:Order Comment: Specimen Type: BLOOD SPECIMEN Ordering Facility: [facility] Address: [address] [place], [place] [address]Performed By: #### 24694-6, 27172-0 #### [facility] [place] [id number] [address] [place] [address] [place] AMERICAUrea nitrogen [Mass/Vol]22 mg/dLNormal 9-24Bethel HospitalComment on above:Order Comment: Specimen Type: BLOOD SPECIMEN Ordering Facility: [facility] Address: [address] [place], [place] [address]Performed By: #### 24393-3, 27028-0 #### [facility] [place] [id number] [place] [address] [place] AMERICAAnion gap [Moles/Vol]9 mmol/L9 - 18 mmol/LCleveland ClinicCalcium [Mass/Vol]9.4 mg/dL8.5 - 10.2 mg/dLCleveland ClinicChloride [Moles/Vol]101 mmol/L97 - 105 mmol/LCleveland ClinicCO2 [Moles/Vol]30 mmol/L22 - 30 mmol/LCleveland ClinicCreatinine [Mass/Vol]1.01 mg/dL0.73 - 1.22 mg/dLWhite HospitalEstimated Glomerular Filtration Rate84 mL/min/1.73m>=60 mL/min/1.73mCleveland ClinicGlucose [Mass/Vol]92 mg/dL74 - 99 mg/dLWhite HospitalPotassium [Moles/Vol]4.4 mmol/L3.7 - 5.1 mmol/LCleveland ClinicSodium [Moles/Vol]140 mmol/L136 - 144 mmol/LCleveland ClinicUrea nitrogen [Mass/Vol]22 mg/dL9 - 24 mg/dLWhite HospitalMAGNESIUM BLDon 10-17-2022 Magnesium [Mass/Vol]2.1 mg/dL1.7 - 2.3 mg/dLMercy Health Anderson Hospital SerPl-mCnc on 36-77-0290Ricdkytii [Mass/Vol]2.1 mg/dLNormal1.7-2.3Avon HospitalComment on above:Order Comment: Specimen Type: BLOOD SPECIMEN Ordering Facility: [facility] Address: [address] [place] [phone] By: #### 25282-8, 49498-7 #### [facility] CLIA [id number] [address] [facility] [place] [address] [place] AMERICAXR ANKLE RT MIN 3 VIEWSon 60-03-2021HN ANKLE RT MIN 3 VIEWSEXAM: XR ANKLE RT MIN 3 VIEWS HISTORY: [...] Electronically authenticated by: DIANE MENEZES Date: 2022-10-09 07:38[facility] HospitalARRHYTHMIA TRANS TELE MEASUREon 51-33-0713Riqadpf DC Interval 179Cleveland ClinicMEASURE QRS Mehmzrgk13Edgdrcyjm ClinicMEASURE QT Biostrzx562 Herrera ClinicMEASURE RR INTERVAL MAX78.86Cleuk healthcare ClinicSymptomsrgeneral leonard [facility] community hospitaline White HospitalARRHYTHMIA TRANS TELE MEASUREon 48-24-7660Nqjrpzicra-Activity tried a couple different timesCleveland ClinicMeasure DC Rugmiapa242Ttduxlprj ClinicMEASURE QRS Zjjowplw96Dndyouqeo ClinicMEASURE QT Kuvtzbhy164Kziaqjczs ClinicMEASURE RR INTERVAL MAX91.21Cleveland ClinicSymptomsroutineWhite HospitalARRHYTHMIA TRANS TELE MEASUREon 11-70-1624Gtmolwq DC Kmbcvkkp615Lxuhylmna ClinicMEASURE QRS Guduzggo90Mogmmrqth ClinicMEASURE QT Kemjsnzw214Cxwjqmvkw ClinicMEASURE RR INTERVAL MAX81.74Cleveland ClinicSymptomsroutineWhite HospitalARRHYTHMIA TRANS TELE MEASUREon 21-54-6411Uwxoqww DC Lgwuibrk779Dlolvybjx ClinicMEASURE QRS Rlbjuvcz12Azdojrlgn ClinicMEASURE QT Itqnlyza875Skoplkrdq ClinicMEASURE RR INTERVAL MAX82.87CleBlanchard Valley Health System Bluffton HospitalymptomsrUNC Health Caldwell ClinicCREATININE, BLOOD (POC)on 73-76-5798Gchyixnbxl [Mass/Vol]0.90 mg/dL0.7 - 1.4 mg/dLHollow Rock ClinicGFR/1.73 sq M.predicted among non-blacks MDRD (S/P/Bld) [Vol rate/Area]mL/min/{1.73_m2}White HospitalCT PULMONARY VEIN W IVCONon 90-79-6741Gbebhaqqk ResultACTIONABLEAbnormalCleveland ClinicARRHYTHMIA TRANS TELE MEASUREon 98-18-5662Zscwgyq DC Jqgvtgec199Lbexwlhjs ClinicMEASURE QRS Hkvkkozp24Bbldzbfnk ClinicMEASURE QT Uynjcmiz035Akmicsxfb ClinicMEASURE RR INTERVAL MAX75.85CleBlanchard Valley Health System Bluffton Hospitalymcox walnut lawnine - BP is elevated, pt. feeling palpitaions when lying down, tired-3-5 dayCleuk healthcare ClinicARRHYTHMIA TRANS TELE MEASUREon 82-45-9531Jjecpqv DC Gfchfohq472Kkaqwexzr ClinicMEASURE QRS Interval 107Cleveland ClinicMEASURE QT Ixkeryau833Vrpvoctyi ClinicMEASURE RR INTERVAL MAX 75.85CleMercy Health [address] Rita's Medical CenterCleuk healthcare ClinicARRHYTHMIA TRANS TELE MEASUREon 82-94-5213Dubqhtc DC Ootmmanv414Blqplsmsr ClinicMEASURE QRS Wjqtanrx08 Herrera ClinicMEASURE QT Qvwytgon893Sizuixbsz ClinicMEASURE RR INTERVAL MAX 77.16CleBlanchard Valley Health System Bluffton HospitalymptomsroutineCleveland ClinicARRHYTHMIA TRANS TELE MEASUREon 15-25-8358Kedutus DC Wckcpwav481Plgvryjls ClinicMEASURE QRS Knfxqimp08 Herrera ClinicMEASURE QT Bdxqhyat849Mzdfpqpei ClinicMEASURE RR INTERVAL MAX 70.82CleOhioHealth Grady Memorial HospitalptomsroutineCleveland ClinicARRHYTHMIA TRANS TELE MEASUREon 10-02-6880Ryokfft DC Qyvunkhh013Wcamiylvr ClinicMEASURE QRS Kdcimyyb58 Herrera ClinicMEASURE QT Jhgzndnm057Shfxoydip ClinicMEASURE RR INTERVAL MAX 71.95CleBlanchard Valley Health System Bluffton Hospitalymptomsrgeneral leonard [facility] community hospitalineCleveland ClinicARRHYTHMIA TRANS TELE MEASUREon 85-72-6595Xgmpxdu DC Cbipqwan176Gejpzrhwz ClinicMEASURE QRS Wxtaysgn01 Herrera ClinicMEASURE QT Bmoqmrfs507Babuaonle ClinicMEASURE RR INTERVAL MAX 72.53[facility] Healthymptomsrgeneral leon[facility] community hospitalineCleveland ClinicARRHYTHMIA TRANS TELE MEASUREon 38-68-6377Yrfolke DC Qaqpmuvh975Qzlptjzaz ClinicMEASURE QRS Nokpjeyf58 Herrera ClinicMEASURE QT Zeeisojs521Qsghnlvmf ClinicMEASURE RR INTERVAL MAX 67.8ClevelAccess Hospital Dayton ClinicARRHYTHMIA TRANS TELE MEASURE on 07-88-0571Jbtjcds DC Lncgmptq251Zfpctyclr ClinicMEASURE QRS Fwrbwvoz29 Herrera ClinicMEASURE QT Dievrrsq814Oozxuwdph ClinicMEASURE RR INTERVAL MAX 71.89[facility] Healthymptomsrgeneral leon[facility] community hospitalineCleveland ClinicARRHYTHMIA TRANS TELE MEASUREon 23-95-2171Lyijarq DC Mixoaeif110Yvdncpotk ClinicMEASURE QRS Sfkiwdqc97 Herrera ClinicMEASURE QT Moiyqbwm175Dvsqwxlsd ClinicMEASURE RR INTERVAL MAX 77.83CleBlanchard Valley Health System Bluffton Hospitalymptomsrbellwood general hospitalCleveland ClinicARRHYTHMIA TRANS TELE MEASUREon 42-10-0016Kftuald DC Yetrmris595Jidogcpds ClinicMEASURE QRS Ausfpybe98 Herrera ClinicMEASURE QT Zvpvrjmn833Amxlgfgda ClinicMEASURE RR INTERVAL MAX 79.56C[facility] ClinicSymptomsroutineHollow Rock ClinicARRHYTHMIA TRANS TELE MEASUREon 13-51-6016Gorwcxo DC Ogalyxbi023Nkxbticqg ClinicMEASURE QRS Uogvuwfu76 Herrera ClinicMEASURE QT Hpjavkfl510Ezbxbrapw ClinicMEASURE RR INTERVAL MAX 66.79C[facility] ClinicSymptomsRoutineHollow Rock ClinicARRHYTHMIA TRANS TELE MEASUREon 33-06-7715Jlfrnxr DC Nsryfvih444Gvyjmsrfi ClinicMEASURE QRS Modpskud66 Herrera ClinicMEASURE QT Xceaesze317Esmstjvih ClinicMEASURE RR INTERVAL MAX 68.15C[facility] ClinicSymptomsroutineHollow Rock ClinicARRHYTHMIA TRANS TELE MEASUREon 43-49-9009Rkavryc DC Umnuzvhe923Wfkmxgcye ClinicMEASURE QRS Kgpssbcd25 Herrera ClinicMEASURE QT Searyscp207Vmfbqnnxc ClinicMEASURE RR INTERVAL MAX 74.32C[place] ClinicSymptomsroutineTrinity Health System Twin City Medical Centerveland ClinicARRHYTHMIA TRANS TELE MEASUREon 79-52-8617Oqyrmdv DC Kilbqqfi263Kaftjcfda ClinicMEASURE QRS Zntxznwq16 Herrera ClinicMEASURE QT Krltrwma220Eviecwbjq ClinicMEASURE RR INTERVAL MAX 73.06C[place] ClinicSymptomsbaselineCleveland ClinicARRHYTHMIA TRANS TELE MEASUREon 16-34-6982Oglroah DC Rkdmcgdr316Zwbqyfogu ClinicMEASURE QRS Qlrnduje09 Herrera ClinicMEASURE QT Zctbszyj293Hruluizzr ClinicMEASURE RR INTERVAL MAX 70.75[facility] HealthymptomsbaselineHollow Rock ClinicTobacco Screening.on 33-35-8671Xagyzyn use status CPHSb) NoMP-[facility] 250 DO Work Phone: No Panel Informationon .0\S\27.0Normal 22.0-30.0MP-[facility] 250 DO Work Phone: Comment on above:PERFORMED BY:[id number] [place], [place] [id number] MEDICAL DIRECTORADEEL LOPES M.D.99\S\12Fgvoqg29-352SO-[facility] [place] [facility] 250 DO Work Phone: [phone]) [phone]\S\3.0Kvrjfy5.5-5.1MP-[facility] 250 DO Work Phone: 1([phone]) [phone]\S\421Cktiju807-105DZ-[facility] [place] [facility]-[place] 250 DO Work Phone: io EKG Electrocardiogram- 12 Leadon 61-78-7357ZA EKG Electrocardiogram- 12 LeadSee Scanned DocumentLourdes Medical Center [facility]-[place] 250 DO Work Phone: Office Visit (Cardiology)on 86-07-7304Nmjkdb-up visit Diagnoses/Problems Assessed Essential hypertension (401.9) (I10) [...] my direction and personally dictated by me. Ihave reviewed the chart and agree that the [...] MG Oral TabletTAKE 1 TABLET TWICE DAILY. Valsartan-hydroCHLOROthiazide 320-25 MG Oral TabletTAKE 1 TABLET DAILY. [...] Vital Signs Recorded: 26Jun2021 01:28PMRecorded: 26Jun2021 01:06PM Ykphavrg916, RUE, Nxyzubm634, LUE, Sitting Wqgposadp25, R (more content not included)...Normal TouchworksTobacco Screening.on 18-56-3913Cpey risk assessmenta) No falls within the last yearCount includes the [facility] WAKU WAKU ? 250 DO Work Phone: Tobacco use status CPHSb) NoMTrios Health EverPower- [employer] 250 DO Work Phone: CREATININEon 50-03-7751Nlkfkuhyma [Mass/Vol]0.91 mg/dL Normal0.50 - 1.30[facility] Medical CenterComment on above:Performed By: #### CREAT #### [address] [id number]-BJQASBS AM.>60Normal>60[facility] Comment on above:Result Comment: CALCULATIONS OF ESTIMATED GFR ARE PERFORMED USING THE MDRD STUDY EQUATION FOR THE IDMS-TRACEABLE CREATININE METHODS. CLIN CHEM 2007;53:766-72Performed By: #### CREAT #### [address] [id number]-PHA AM.>60Normal>60[facility] Comment on above:Performed By: #### CREAT #### [address] [id number] PANELon 19-18-3711Wbshn gap [Moles/Vol]12 mmol/L Tvcysz28 - 20[facility] Medical CenterComment on above:Performed By: #### ELECT #### [address] [id number] [Moles/Vol]100 mmol/DXovgzl14 - 107[facility] CenterComment on above:Performed By: #### ELECT #### [address] [id number] (Bld) [Moles/Vol]31 mmol/BSufnbs33 - 32[facility] CenterComment on above:Performed By: #### ELECT #### [address] [id number] [Moles/Vol]3.9 mmol/LNormal3.5 - 5.3[facility] CenterComment on above:Performed By: #### ELECT #### [address] [id number] [Moles/Vol]139 mmol/GPqahqo061 - 145[facility] CenterComment on above:Performed By: #### ELECT #### [address] [id number] NITROGENon 85-38-1657Avwj nitrogen [Mass/Vol]19 mg/dL Normal6 - 23[facility] Medical CenterComment on above:Performed By: #### UREA #### [address] [id number] Vital Signs Date TimeVital SignValuePerforming JrpfrhzfoWiyldbwe97-28-9590 12:51-0400Body bzyaav754.88 cmLinda Jansen REGIONAL COORDINATOR-C Work Phone: [facility]10-03-2025 12:51-0400 Body mass index (BMI) [Ratio]26.4 kg/a6WqsfxLinda Jansen REGIONAL COORDINATOR-C Work Phone: [facility]10-03-2025 12:51-0400 Body qpbobswdbpn41.8 [degF]Linda Hemmer REGIONAL COORDINATOR-C Work Phone: [phone])[address] [place], [place] 7[address]10-03-2025 12:51-0400 Body osxkpx64.45 kgLinda Hemmer REGIONAL COORDINATOR-C Work Phone: 1(591)[address] [place], [place] 7200410-03-2025 12:51-0400 Diastolic blood mm[Hg]Linda Hemmer REGIONAL COORDINATOR-C Work Phone: 1(046)[address] [place], [place] 7200410-03-2025 12:51-0400 Heart rate65 /minKaren Hemmer REGIONAL COORDINATOR-C Work Phone: 1(582)[address] [place], [place] 7200410-03-2025 12:51-0400 Respiratory rate16 /minKaren Hemmer REGIONAL COORDINATOR-C Work Phone: 1(509)[address] [place], [place] 7200410-03-2025 12:51-0400 SaO2% (BldA) [Mass fraction]99 %Linda Hemmer REGIONAL COORDINATOR-C Work Phone: 1(876)[address] [place], [place] 7200410-03-2025 12:51-0400 Systolic blood dcdyalxp536 mm[Hg]Linda Hemmer REGIONAL COORDINATOR-C Work Phone: 1(152)[address] [place], [place] 7200409-19-2025 09:38-0400 Body yhjves548.88 cmKaren Hemmer REGIONAL COORDINATOR-C Work Phone: [phone])[address] [place], [place] 7200409-19-2025 09:38-0400 Body mass index (BMI) [Ratio]26 kg/n6Twlqt Hemmer REGIONAL COORDINATOR-C Work Phone: 1(212)[address] [place], [place] 7200409-19-2025 09:38-0400 Body jbzwlgkswvi75.2 [degF]Linda Hemmer REGIONAL COORDINATOR-C Work Phone: 1(114)[address] [place], [place] 7200409-19-2025 09:38-0400 Body .08 kgKaren Hemmer REGIONAL COORDINATOR-C Work Phone: 1(498)[address] [place], [place] 7200409-19-2025 09:38-0400 Diastolic blood mm[Hg]Linda Hemmer REGIONAL COORDINATOR-C Work Phone: [facility]09-19-2025 09:38-0400 Heart rate66 /minLinda Hemmer REGIONAL COORDINATOR-C Work Phone: 1([phone] [place], [place] 112[address]9-19-2025 09:38-0400 Respiratory rate16 /minLinda Hemmer REGIONAL COORDINATOR-C Work Phone: [phone] [place], [place] 0462409-19-2025 09:38-0400 SaO2% (BldA) [Mass fraction]100 %Linda Hemmer REGIONAL COORDINATOR-C Work Phone: 1(255)954-[address] [place], [place] [address]9-19-2025 09:38-0400 Systolic blood aowphmuj585 mm[Hg]Linda Olmedomer REGIONAL COORDINATOR-C Work Phone: [phone] [place], [place] 0462408-11-2025 14:32-0400 Body .9 cmAarelis Tuttle MD Work Phone: [facility]08-11-2025 14:32-0400Body mass index (BMI) [Ratio]26.49 kg/u0EhkkhBill Tuttle MD Work Phone: [facility]08-11-2025 14:32-0400Body grljsu01.6 kgBill Tuttle MD Work Phone: [facility]08-11-2025 14:32-0400Diastolic blood rnnofppv86 mm[Hg]Bill Tuttle MD Work Phone: [facility]08-11-2025 14:32-0400Heart rate76 /min Bill Tuttle MD Work Phone: [facility]08-11-2025 14:32-0400Systolic blood ahgyunut554 mm[Hg]Bill Tuttle MD Work Phone: [facility]07-11-2025 14:53-0400Body jjkylo280.88 cmLinda Honoriomer REGIONAL COORDINATOR-C Work Phone: [facility]07-11-2025 14:53-0400 Body mass index (BMI) [Ratio]26.9 kg/h5Tsobt Honoriomer REGIONAL COORDINATOR-C Work Phone: 1(960)[address] [place], [place] 7200407-11-2025 14:53-0400 Body fuggecbdwqb18.7 [degF]Linda Hemmer REGIONAL COORDINATOR-C Work Phone: 1(227)[address] [place], [place] 7200407-11-2025 14:53-0400 Body hzacaa63.26 kgNjen Hemmer REGIONAL COORDINATOR-C Work Phone: 1(034)[address] [place], [place] 7200407-11-2025 14:53-0400 Diastolic blood lzohpihy00 mm[Hg]Linda Hemmer REGIONAL COORDINATOR-C Work Phone: 1(186)[address] [place], [place] 7200407-11-2025 14:53-0400 Heart rate65 /minKaren Hemmer REGIONAL COORDINATOR-C Work Phone: 1(221)[address] [place], [place] 7200407-11-2025 14:53-0400 Respiratory rate18 /minKaren Hemmer REGIONAL COORDINATOR-C Work Phone: 1(687)[address] [place], [place] 7200407-11-2025 14:53-0400 SaO2% (BldA) [Mass fraction]98 %Linda Hemmer REGIONAL COORDINATOR-C Work Phone: 1(933)[address] [place], [place] 7200407-11-2025 14:53-0400 Systolic blood yznpohql454 mm[Hg]Linda Hemmer REGIONAL COORDINATOR-C Work Phone: 1(260)[address] [place], [place] 7200407-08-2025 09:26-0400 Body ekqjsz180.9 cmLinda Hemmer PA Work Phone: 1(418)[address] [place], [place] 6902507-08-2025 09:26-0400Body mass index (BMI) [Ratio]27.04 kg/o0Zquty Hemmer PA Work Phone: 1(755)[address] [place], [place] 6902507-08-2025 09:26-0400Body bwxtda06.45 kgNjen Hemmer PA Work Phone: 1(949)[address] [place], [place] 6902507-08-2025 09:26-0400Diastolic blood ytwioyzj69 mm[Hg]Linda Hemmer PA Work Phone: 1(116)[address] [place], [place] 6902507-08-2025 09:26-0400Heart rate72 /min Linda Jansen PA Work Phone: [facility] CenterGhdebkcizf29-79-1618 09:26-0400Respiratory rate16 /minLinda Olmedomer PA Work Phone: [facility] CenterDwscrjxzhn60-40-4227 09:26-1188CnH4% (BldA) [Mass fraction]98 %Linda Jansen PA Work Phone: [facility] CenterHinxopkkxn74-22-4198 09:26-0400Systolic blood noeefthm289 mm[Hg]Linda Jansen PA Work Phone: [facility] CenterTaxlwepeyi86-48-6585 09:35-0400Body opqqnk822.88 cm[facility]06-28-2025 09:35-0400Body mass index (BMI) [Ratio]27.3 kg/l3ZkfjhqggfThe [facility]06-28-2025 09:35-0400Body yiuyaqakobr86.7 [degF][facility]06-28-2025 09:35-0400Body fcorvd62.28 kgThe [facility]06-28-2025 09:35-0400Diastolic blood mm[Hg][facility]06-28-2025 09:35-0400 Heart rate73 /[facility]06-28-2025 09:35-0400 Respiratory rate18 /[facility]06-28-2025 09:35-0400 SaO2% (BldA) [Mass fraction]97 %[facility]06-28-2025 09:35-0400Systolic blood rvuvfcob108 mm[Hg][facility] 02-10-2025 10:48-0400Diastolic blood mm[Hg][facility]06-19-2025 10:48-0400Heart rate77 /[facility] 02-10-2025 10:48-0400Respiratory rate18 /[facility] 02-10-2025 10:48-5798EaR5% (BldA) [Mass fraction]100 %[facility]06-19-2025 10:48-0400Systolic blood neldtegv368 mm[Hg][facility]06-19-2025 09:16-0400Body enhqdd551.88 cmThe [facility]06-19-2025 09:16-0400Body pdytow05.71 kgThe [facility]05-30-20[facility] 15:04-0400Body .88 cm[facility]05[facility]30[facility]2025 15:04-0400Body mass index (BMI) [Ratio]27.9 kg/c3FblzcjjcuThe [facility]05-30-2025 15:04-0400Body yiqzrfvvwpz77.2 [degF][facility]05-30-2025 15:04-0400Body emagrn05.44 kgThe [facility]05[facility]-2025 15:04-0400Diastolic blood vhukzujk61 mm[Hg] [facility]05-30-2025 15:04-0400Heart rate62 /[facility]05-30-2025 15:04-0400Respiratory rate18 /[facility]05-30-2025 15:04-3847QgM7% (BldA) [Mass fraction]98 % [facility]05-30-2025 15:04-0400Systolic blood wucfgqnq618 mm[Hg][facility]04-17-2025 15:34-0400Body lgdjcu011.9 cm Eulaliomatt Irby [employer] Work Phone: [employer] GroupNorthwest Medical [phone] 15:34-0400Body mass index (BMI) [Ratio]28.21 kg/o1Vbfja Ranberry Work Phone: [employer] GroupNorthwest Medical [phone] 15:34-0400Body jjbyhb08.35 kgRobmatt Ranberry Work Phone: [employer] GroupNorthwest Medical [phone] 15:52-0500Body cijwtl253.9 cmEulalio Ranberry Work Phone: [employer] [phone] 15:52-0500Body mass index (BMI) [Ratio]28.35 kg/y1Mrhgx Mahamed [employer] Work Phone: noNorthwest Medical [phone] 15:52-0500Body temperature 97.39 [degF]Eulalio Irby DO Work Phone: [facility] CenterRdqawxqeup10-45-2872 15:52-0500Body rlzxga30.8 kg Eulalio Irby DO Work Phone: no[facility] CenterBchtmqshks18-14-3288 16:43-0500Body cxbynw423.9 cmStephen Ebbitt PA-C Work Phone: [facility]01-28-2025 16:43-0500Body mass index (BMI) [Ratio]27.81 kg/k7Dnzleor Ebbitt PA-C Work Phone: [facility]01-28-2025 16:43-0500Body skizjr70 kg Tony Ebbitt PA-C Work Phone: [facility]01-28-2025 16:43-0500Diastolic blood uoasrlye43 mm[Hg]Tony Ebbitt PA-C Work Phone: [facility]01-28-2025 16:43-0500Systolic blood pdopnciv667 mm[Hg]Tony Ebbitt PA-C Work Phone: [facility]01-22-2025 15:28-0500Body nidchv360.9 cmKaren Hemmer PA Work Phone: no[facility] CenterEgtncgqdxt71-42-1152 15:28-0500Body mass index (BMI) [Ratio]28.4 kg/k1Akkhw Hemmer PA Work Phone: [facility] CenterTmrlrcbkaz58-54-4593 15:28-0500Body temperature 97.7 [degF]Linda Hemmer PA Work Phone: [facility] CenterCftfvztuij46-52-1774 15:28-0500Body dxgfgu32.98 kgNjen Hemmer PA Work Phone: [facility] CenterNiutgeoiou29-75-6074 15:28-0500Diastolic blood fakhhusw54 mm[Hg]Linda Hemmer PA Work Phone: [facility] CenterQtezdixcty81-90-4319 15:28-0500Heart rate64 /min Linda Olmedojhonatan PA Work Phone: [facility] CenterIzxkbrvxrx05-27-3762 15:28-0500Respiratory rate16 /minLinda Olmedojhonatan PA Work Phone: [facility] CenterQjcjosrasc67-28-0241 15:28-2310MzB8% (BldA) [Mass fraction]98 %Linda Olmedojhonatan PA Work Phone: [facility] CenterIrcgecgxue53-64-2397 15:28-0500Systolic blood snkuxjtw777 mm[Hg]Linda Olmedojhonatan PA Work Phone: [facility] CenterBpdbsgowgs56-52-1454 11:04-0500Body tewanj936.9 cmEulalio Mahamed DO Work Phone: [facility] CenterIlhbxvtkiy55-69-8125 11:04-0500Body mass index (BMI) [Ratio]27.4 kg/i5Emrdz Mahamed DO Work Phone: [facility] CenterRobsyjqgmg46-75-0831 11:04-0500Body temperature 97.39 [degF]Eulalio Mahamed DO Work Phone: [facility] CenterRpulobeqvk50-91-5900 11:04-0500Body viqbyx72.63 kgEulalio Irby DO Work Phone: no[facility] CenterTbghcdyfgc91-98-7167 15:24-0500Body pzedas230.88 cmSedrick Ye MD Work Phone: [facility]12-13-2024 15:24-0500 Body byhhyc00.98 kgSedrick Ye MD Work Phone: [facility]12-03-2024 15:52-0500 Body xkoast099.9 cmEulalio Irby DO Work Phone: no[facility] CenterLxjwcukrbl30-34-9474 15:52-0500Body mass index (BMI) [Ratio]27.4 kg/t9FlczjEulalio Irby DO Work Phone: no[facility] CenterRzslflaxjj52-26-5936 15:52-0500Body mdltgy06.63 kgEulalio Irby DO Work Phone: no[facility] CenterBlpwhzfxuf34-33-3902 15:49-0400Body xajgsv462.9 cmEulalio Irby DO Work Phone: no[facility] CenterWdmmlsiyvu96-90-5352 15:49-0400Body mass index (BMI) [Ratio]27.4 kg/f5VndutEulalio Irby DO Work Phone: no[facility] CenterKqxyqzfatk17-53-6703 15:49-0400Body gdapka18.63 kgEulalio Irby DO Work Phone: no[facility] CenterYxhivqvajz17-51-3122 09:58-0400Body .9 cmAjorge Haque MD Work Phone: no[facility] CenterHfvvotdkef61-32-4466 09:58-0400Body mass index (BMI) [Ratio]27.4 kg/h6UgtkyvGrace Haque MD Work Phone: no[facility] CenterEukxzdxxsk24-26-8623 09:58-0400Body bzgwaq75.63 kgGrace Haque MD Work Phone: no[facility] CenterAejawgtffd62-01-6722 16:21-0400Body yunfbi321.9 cmSedrick Lyons REGIONAL COORDINATOR Work Phone: no[facility] CenterWtyhjdwiyp96-54-2165 16:21-0400Body mass index (BMI) [Ratio]27.4 kg/m2Sedrick Lyons REGIONAL COORDINATOR Work Phone: [facility] CenterNdrjcyiyif69-69-5539 16:21-0400Body wfifsv86.63 kgSedrick Lyons REGIONAL COORDINATOR Work Phone: [facility] CenterFliigbtvlz26-98-9542 16:21-0400Diastolic blood hzckjuqq22 mm[Hg]Sedrick Lyons REGIONAL COORDINATOR Work Phone: NON[facility] CenterSaeznbawzj35-48-0289 16:21-0400Heart rate67 /min Sedrick Lyons REGIONAL COORDINATOR Work Phone: [facility] CenterYuxicqspwo75-80-8040 16:21-7350PxX8% (BldA) [Mass fraction]98 %Sedrick Lyons REGIONAL COORDINATOR Work Phone: [facility] CenterXntokvxqkn09-60-9516 16:21-0400Systolic blood zooxxwrn657 mm[Hg]Sedrick Lyons NP Work Phone: [facility] CenterDegfumxyip43-08-8823 09:21-0400Body fvqruf018.9 cmAltuan Haque MD Work Phone: [facility] CenterLndddhmgyj19-21-2818 09:21-0400Body mass index (BMI) [Ratio]27.12 kg/l1CuzandGrace Haque MD Work Phone: [facility] CenterGjzhhqblyw93-59-8941 09:21-0400Body xxcotn77.72 kgGraec Haque MD Work Phone: [facility] CenterGqghyiudbs96-67-2106 09:21-0400Diastolic blood qweurkhe93 mm[Hg]Grace Haque MD Work Phone: [facility] CenterLvjdnrjjfa46-60-5508 09:21-0400Systolic blood axotldnu895 mm[Hg]Grace Haque MD Work Phone: [facility] CenterGjtrmfixqh61-65-0205 14:57-0400Body .88 cmMD Sedrick Ye Work Phone: 1(566)[address]08-30-2024 14:57-0400 Body mass index (BMI) [Ratio]26.7 kg/m2MD Sedrick Ye Work Phone: 1(522)[address]08-30-2024 14:57-0400 Body lflyvixiwin56.3 [degF]MD Sedrick Ye Work Phone: [phone]([phone]08-30-2024 14:57-0400 Body rczfqa64.35 kgMD Sedrick Ye Work Phone: 1(473)977-[address] [place], [place] 6104608-30-2024 14:57-0400 Diastolic blood mm[Hg]MD Sedrick Ye Work Phone: 1(930)547-[address] [place], [place] 6104608-30-2024 14:57-0400 Heart rate62 /minMD Sedrick Ye Work Phone: 1(986)786-[address] [place], [place] 6104608-30-2024 14:57-0400 Respiratory rate16 /minMD Sedrick Ye Work Phone: [facility]08-30-2024 14:57-0400 SaO2% (BldA) [Mass fraction]97 %MD Sedrick Ye Work Phone: [facility]08-30-2024 14:57-0400 Systolic blood wuoqehhv579 mm[Hg]MD Sedrick Ye Work Phone: [facility]06-07-2024 14:12-0400 Body dyureg294.9 cmAbdvi Tuttle MD Work Phone: [facility]06-07-2024 14:12-0400Body mass index (BMI) [Ratio]27.69 kg/w3AxwulBill Tuttle MD Work Phone: [facility]06-07-2024 14:12-0400Body dutaxf97.6 kgBill Tuttle MD Work Phone: [facility]06-07-2024 14:12-0400Diastolic blood olcekqbc83 mm[Hg]Bill Tuttle MD Work Phone: [facility]06-07-2024 14:12-0400Heart rate66 /min Bill Tuttle MD Work Phone: [facility]06-07-2024 14:12-1481VlY2% (BldA) [Mass fraction]97 %Bill Tuttle MD Work Phone: [facility]06-07-2024 14:12-0400Systolic blood ocmacldy383 mm[Hg]Bill Tuttle MD Work Phone: [facility]05-31-2024 14:010400Body foaaha325.88 cmMD Sedrick Ye Work Phone: [facility]05-31-2024 14:010400 Body mass index (BMI) [Ratio]27.5 kg/m2MD Sedrick Ye Work Phone: [facility]05-31-2024 14:01-0400 Body waeosltbtzf47.4 [degF]MD Sedrick Ye Work Phone: [phone]05-31-2024 14:01-0400 Body owuvoa11.07 kgMD Sedrick Ye Work Phone: 1(022)805-[address] [place], [place] 6104605-31-2024 14:01-0400 Diastolic blood ymvmiloh69 mm[Hg]MD Sedrick Ye Work Phone: 1(168)[address]05-31-2024 14:01-0400 Heart rate71 /minMD Sedrick Ye Work Phone: 1(293)[address]05-31-2024 14:01-0400 Respiratory rate20 /minMD Sedrick Ye Work Phone: 1(056)[address]05-31-2024 14:01-0400 SaO2% (BldA) [Mass fraction]99 %MD Sedrick Ye Work Phone: 1(716)977-[address] [place], [place] 6104605-31-2024 14:01-0400 Systolic blood mm[Hg]MD Sedrick Ye Work Phone: 1(451)596-[address] [place], [place] 6104612-07-2023 13:23-0500 Body .9 cmAarelis Tuttle MD Work Phone: [facility]12-07-2023 13:23-0500Body ocfnyr69.91 kgBill Tuttle MD Work Phone: [facility]12-07-2023 13:23-0500Diastolic blood yumsnqqh15 mm[Hg]Bill Tuttle MD Work Phone: [facility]12-07-2023 13:23-0500Heart rate71 /min Bill Tuttle MD Work Phone: [facility]12-07-2023 13:23-0500Systolic blood nzptcezf424 mm[Hg]Bill Tuttle MD Work Phone: [facility]05-03-2023 14:11-0400Body izqrzu656.9 cmAarelis Tuttle MD Work Phone: [facility]05-03-2023 14:11-0400Body xpujiy16.72 kgBill Tuttle MD Work Phone: [facility]05-03-2023 14:11-0400Diastolic blood lyfgyvnb87 mm[Hg]Bill Tuttle MD Work Phone: [facility]05-03-2023 14:11-0400Systolic blood ispzfxvd597 mm[Hg]Bill Tuttle MD Work Phone: [facility]02-23-2023 15:10-0500Body amoozf091.9 Deric Tuttle MD Work Phone: [facility]02-23-2023 15:10-0500Body .63 kgBill Tuttle MD Work Phone: [facility]02-23-2023 15:10-0500Diastolic blood lkglcqum69 mm[Hg]Bill Tuttle MD Work Phone: [facility]02-23-2023 15:10-0500Heart rate75 /min Bill Tuttle MD Work Phone: [facility]02-23-2023 15:10-6647FiQ1% (BldA) [Mass fraction]98 %Bill Tuttle MD Work Phone: [facility]02-23-2023 15:10-0500Systolic blood ucgabmph875 mm[Hg]Bill Tuttle MD Work Phone: [facility]01-20-2023 15:12-0500Body yrxudu110.9 cmAarelis Tuttle MD Work Phone: [facility]01-20-2023 15:12-0500Body utjsfo32.53 kgBill Tuttle MD Work Phone: [facility]01-20-2023 15:12-0500Diastolic blood yizqtukf84 mm[Hg]Bill Tuttle MD Work Phone: [facility]01-20-2023 15:12-0500Heart rate79 /min Bill Tuttle MD Work Phone: [facility]01-20-2023 15:12-4466JhG4% (BldA) [Mass fraction]98 %Bill Tuttle MD Work Phone: [facility]01-20-2023 15:12-0500Systolic blood xsevqjzk003 mm[Hg]Bill Tuttle MD Work Phone: [facility]12-08-2022 13:49-0500Diastolic blood poczuuiu12 mm[Hg]Hiren Sena MD Work Phone: [facility]12-08-2022 13:49-0500Heart rate75 /min Hiren Sena MD Work Phone: [facility]12-08-2022 13:49-1622DwL5% (BldA) [Mass fraction]97 %Hiren Sena MD Work Phone: [facility]12-08-2022 13:49-0500Systolic blood uibargkr231 mm[Hg]Hiren Sena MD Work Phone: [facility]09-16-2022 15:10-0400Body psdduv47.58 kgBill Tuttle MD Work Phone: [facility]09-16-2022 15:10-0400Diastolic blood kzoyswoo43 mm[Hg]Bill Tuttle MD Work Phone: [facility]09-16-2022 15:10-0400Heart rate72 /min Bill Tuttle MD Work Phone: [facility]09-16-2022 15:10-7117PnE6% (BldA) [Mass fraction]98 %Bill Tuttle MD Work Phone: [facility]09-16-2022 15:10-0400Systolic blood kdfiktgx512 mm[Hg]Bill Tuttle MD Work Phone: [facility]08-04-2022 14:44-0400Body rjihok951.9 cmAarelis Tuttle MD Work Phone: [facility]08-04-2022 14:44-0400Body .45 kgBill Tuttle MD Work Phone: [facility]08-04-2022 14:44-0400Diastolic blood vckkgikc93 mm[Hg]Bill Tuttle MD Work Phone: [facility]08-04-2022 14:44-0400Heart rate70 /min Bill Tuttle MD Work Phone: [facility]08-04-2022 14:44-0400Respiratory rate 18 /minBill Tuttle MD Work Phone: [facility]08-04-2022 14:44-6088AsC3% (BldA) [Mass fraction]98 %Bill Tuttle MD Work Phone: [facility]08-04-2022 14:44-0400Systolic blood nhvswqji551 mm[Hg]Bill Tuttle MD Work Phone: [facility]07-29-2022 10:27-0400Body .9 cmPolina Rogers DIRECTOR STARS.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 Work Phone: [facility]07-29-2022 10:27-0400Body tzugws67.72 kgPolmagda Mccloud DIRECTOR STARS.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 Work Phone: [facility]07-29-2022 10:27-0400Diastolic blood vczayyfq23 mm[Hg]Barbara Mccloud DIRECTOR STARS.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 Work Phone: [facility]07-29-2022 10:27-0400Heart rate56 /min Barbara Mccloud DIRECTOR STARS.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 Work Phone: [facility]07-29-2022 10:27-0400Systolic blood dmebhgbw148 mm[Hg]Barbara Mccloud DIRECTOR STARS.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 Work Phone: [facility]01-19-2022 14:04-0500Body jcefbg544.88 cmKim E Ye Work Phone: 1(127) [phone]-Sqefe [facility] DO Work Phone: 1(105) 117-948101-19-2022 14:04-0500Body mass index (BMI) [Ratio] 27.53 kg/m2Kim E Ye Work Phone: 1(106) [phone]-Onzso [facility] DO Work Phone: 1(594) 694-866401-19-2022 14:04-0500Body surface area Derived from formula2.14 m2Kim E Ye Work Phone: 1(571) [phone]-Otxse [facility] [address] DO Work Phone: 1(478) 466-199001-19-2022 14:04-0500Body ukllkc92.08 kgKim E Ye Work Phone: 1(344) [phone]-Bafly [facility] DO Work Phone: 1(539) 320-863901-19-2022 14:04-0500Diastolic blood vwiezosa10 mm[Hg] Sedrick Whipple Ye Work Phone: 1(539) [phone]-Pnxcy [facility] DO Work Phone: 1(902) 121-509301-19-2022 14:04-0500Heart rate95 /minKim E Ye Work Phone: 1(943) [phone]-Ziflx [facility] DO Work Phone: 1(242) 918-877201-19-2022 14:04-0500Systolic blood mm[Hg] Sedrick Whipple Ye Work Phone: 1(522) [phone]-Femsr [facility] DO Work Phone: 1(131) 616-850611-02-2021 13:28-0400Diastolic blood axyehkwa05 mm[Hg] Sedrick Khanight Work Phone: 1(115) [phone]-Kgfzy [facility] DO Work Phone: 1(755) 687-908711-02-2021 13:28-0400Systolic blood ctscypop071 mm[Hg] Sedrick Whipple Ye Work Phone: 1(537) [phone]-Uexoe [facility] DO Work Phone: 1(899) 590-519411-02-2021 13:06-0400Body hiiyij028.88 cmKitrish Khanight Work Phone: 1(919) [phone]-Jxfyt [facility] DO Work Phone: 1(861) 335-641111-02-2021 13:06-0400Body mass index (BMI) [Ratio] 27.94 kg/m2Sedrick Khanight Work Phone: 1(725) [phone]-Plqey [facility] DO Work Phone: 1(782) 777-838111-02-2021 13:06-0400Body surface area Derived from formula2.16 m2Sedrick Khanight Work Phone: 1(291) [phone]-IxipdChildren's [place] DO Work Phone: 1(980) 398-719611-02-2021 13:06-0400Body aycowt87.44 kgKitrish Ye Work Phone: 1(354) [phone]-XdwtcChildren's [place] DO Work Phone: 1(933) 517-866611-02-2021 13:06-0400Diastolic blood otecbggy923 mm[Hg]Sedrick Ye Work Phone: 1(266) [phone]-Jqboo [facility] DO Work Phone: 1(842) 255-470611-02-2021 13:06-0400Heart rate92 /minKitrish Ye Work Phone: 1(597) [phone]-TtorxChildren's [place] [facility] DO Work Phone: 1(499) 989-202411-02-2021 13:06-0400Systolic blood iujposup420 mm[Hg] Sedrick Sarabjit Ye Work Phone: 1(595) [phone]-Zlgyz [facility] DO Work Phone: Encounters Encounter DateEncounter TypeCare ProviderFacilityStart: 06-13-2025 End: 75-01-2969pozsgbypguMNLGG R WATTARFacility:[facility]tart: 06-08-2025 End: 80-56-1977Tdmxtssbm Result EncounterGeneric External Data ProviderNOMS External Department UnsolicitedStart: 06-08-2025 End: 38-09-0762Cwbmnxomc Result EncounterGeneric External Data ProviderNOMS External Department UnsolicitedStart: 89-51-7022Aezwtjxenf Abe Carlos II [facility] Work Phone: Start: 05-27-2025 End: 44-93-1773hpepdswbboCwgaq [facility] Work Phone: [facility] Work Phone: Start: 05-27-2025 End: 09-67-5318Gcnytdr encounter procedureChristian Carlos [facility] Work Phone: Start: 05-26-2025 End: 42-01-4843Ehygazwmu Result EncounterGeneric External Data ProviderNOMS External Department UnsolicitedStart: 05-26-2025 End: 81-59-1562Zyplmzfqv Result EncounterGeneric External Data ProviderNOMS External Department UnsolicitedStart: 05-19-2025 End: 13-37-2292Soodfzevr Result EncounterGeneric External Data ProviderNOMS External Department UnsolicitedStart: 05-19-2025 End: 86-92-5589Uciiycdbe Result EncounterGeneric External Data ProviderNOMS External Department UnsolicitedStart: 05-16-2025 End: 04-85-1499Lbtqhwbko Result EncounterGeneric External Data ProviderNOMS External Department UnsolicitedStart: 05-16-2025 End: 30-58-6537Yjyuebjfj Result EncounterGeneric External Data ProviderNOMS External Department UnsolicitedStart: 46-27-2251Aalmwwoqyd RecurringChristian Carlos II [facility] Work Phone: Start: 55-99-6466Mhy-patient / Non-visitChristian Carlos II [facility] Work Phone: Start: 05-13-2025 End: 87-62-0622oojjubkpibGatut [facility] REGIONAL COORDINATOR-C Work Phone: [facility] Work Phone: Start: 05-13-2025 End: 69-87-4759Sivqcua encounter procedureGracie [facility] Work Phone: Start: 05-12-2025 End: 76-79-6078Yjoiyocp Result EncounterChristian Carlos DO Work Phone: noms External Department UnsolicitedStart: 05-12-2025 End: 81-46-1600Oqpldmyp Result EncounterChristian Carlos DO Work Phone: noms External Department UnsolicitedStart: 05-09-2025 End: 65-14-0257Nivldnrno Result EncounterGeneric External Data ProviderNOMS External Department UnsolicitedStart: 05-09-2025 End: 01-06-0770Aenttvyyp Result EncounterGeneric External Data ProviderNOMS External Department UnsolicitedStart: 04-04-2025 End: 67-83-6136Qdwpqaw encounter procedureIta Tuttle MD Work Phone: CardiologyComment on above:PAF (paroxysmal atrial fibrillation) (HCC) (Primary Dx); Atrial fibrillation, persistent (HCC); Benign essential HTN; Hypertension, unspecified type; Tachycardia induced cardiomyopathy (HCC)Start: 04-04-2025 End: 08-90-5864zxrfrghsrySKRBQ R WATTARFacility:[facility] Hospitaltart: 03-17-2025 End: 47-49-1582Yubgcbaie encounterLinda PIEDRA Work Phone: NOGU CI FMStart: 55-58-0527Jyptzhsacd RecurringChristian Carlos II DO-[facility] Work Phone: Start: 03-04-2025 End: 52-23-3202hsuaoajohsPkvvs Hemmer NP-C Work Phone: [facility] Work Phone: Start: 03-04-2025 End: 32-84-7811Wvhaeln encounter procedureChristian Carlos II [facility] Work Phone: Start: 03-01-2025 End: 20-35-7592Xpdzpb flowsKirt Jansen PA Work Phone: NOTB CI FMStart: 03-01-2025 End: 20-63-0682Utskem flowshectorNjlainey Jansen PA Work Phone: NOEZ CI FMStart: 03-01-2025 End: 66-46-9280Tqwsnqo encounter statusLinda PIEDRA Work Phone: [facility] Work Phone: Start: 03-01-2025 End: 26-26-3116Wyjxugui preventive med est patient 65yrs& olderLinda PIEDRA Work Phone: noms CI FMComment on above:Wellness examination (Primary Dx); Muscle cramping; Primary hypertension ; Obstructive sleep apnea syndrome; Lymphocytosis; Arteriosclerotic vascular disease; Erectile dysfunction, unspecified erectile dysfunction type; Lung nodule; History of nephrolithiasis; History of COVID-19; Other thrombophilia (HHS-HCC); Thoracic aortic ectasia; History of colon polyps; PONV (postoperative nausea and vomiting); IFG (impaired fasting glucose); Screening for malignant neoplasm of prostateStart: 03-01-2025 End: 81-00-7392cvkzkqkdknXKGAS M HEMMERNot AvailableStart: 02-19-2025 End: 23-18-1979bzsgjkurfrGTPCleveland Clinic Work Phone: Start: 02-19-2025 End: 16-11-3375Ivkojbw encounter procedureHannah Quarles DIRECTOR STARS-[facility] Work Phone: Start: 02-10-2025 End: 30-61-1017Rryjyurt Result EncounterChristian Carlos DO Work Phone: noms External Department UnsolicitedStart: 02-10-2025 End: 89-36-5122Xqlfjefh Result EncounterChristian Carlos DO Work Phone: noms External Department UnsolicitedStart: 02-10-2025 End: 78-06-9532Oqidlvpfm to same day surgery centerChristian Carlos II DO-CT Scan [facility] [place] Work Phone: Start: 02-10-2025 End: 59-29-6871ufemzwjuyiLnwkk HemmerFacility:[facility] Start: 01-21-2025 End: 19-45-4542fxyqtdgaweYRD STAFFEast [facility] Hospital Work Phone: Start: 01-21-2025 End: 22-68-4707Czrbonv [facility]An[facility] Work Phone: Start: 01-13-2025 End: 68-11-4064Ulcofyvl Result EncounterChristian Carlos DO Work Phone: noms External Department UnsolicitedStart: 01-13-2025 End: 23-78-5358Poaynpox Result EncounterChristian Carlos DO Work Phone: noms External Department UnsolicitedStart: 01-01-2025 End: 51-37-4847MhcodbPyudg R Wattar MD Work Phone: CardiologyComment on above:Refill RequestStart: 12-09-2024 End: 62-75-0122Fklaemn encounter Narcisa Irby DO Work Phone: N[facility] NB ORTHOComment on above:S/P right knee arthroscopy (Primary Dx)Start: 12-09-2024 End: 44-35-3872ciusoribwlVRRHD A BROWNNot AvailableStart: 12-09-2024 End: 30-84-7292Keedly flowsNoelle Irby DO Work Phone: NOMS ORTHOStart: 12-09-2024 End: 25-02-7804Fbsqgz Matt Irby DO Work Phone: NOMS ORTHOStart: 11-30-2024 End: 11-74-2326gtbvbfwfraQoiIdalia Ye MD Work Phone: [facility] Work Phone: Start: 11-30-2024 End: 25-73-5134Oybswwoc Ezequiel Ye MD Work Phone: [facility] [address] Work Phone: start: 04-94-0670Kliaxtlxib Joanne Ye MD Work Phone: [facility] Work Phone: Start: 11-09-2024 End: 00-75-2452haqrpaldhxIUXWD M HEMMERNot AvailableStart: 10-28-2024 End: 11-60-7438ksuylxeawlSOQRI A BROWNNot AvailableStart: 09-30-2024 End: 36-41-4356Hjsyqsx encounter procedureEulalio Irby DO Work Phone: noMS NB ORTHOComment on above:Left hand pain (Primary Dx); S/P right knee arthroscopy; Right knee pain, unspecified chronicityStart: 09-30-2024 End: 76-86-0846fxvectncgaQMZWQ A BROWNNot AvailableStart: 09-30-2024 End: 37-70-9989ftihnrsvvfJEYDI A BROWNNot AvailableStart: 09-27-2024 End: 27-76-7848TszwguKvtyl R Wattar MD Work Phone: CardiologyComment on above:Refill RequestStart: 09-21-2024 End: 85-27-6161swgdutuguyDLMHT R WATTARFacility:[facility] Hospitaltart: 09-21-2024 End: 73-38-5495Srntryv encounter procedureSisma Armstrong PA-C Work Phone: CardiologyComment on above:Primary hypertension (Primary Dx); PAF (paroxysmal atrial fibrillation) (HCC); Coronary artery calcificationStart: 09-15-2024 End: 32-17-7503Ikhfvu outpatient visit 15 minutesLinda PIEDRA Work Phone: [facility] CI FMComment on above:Acute non-recurrent maxillary sinusitis (Primary Dx)Start: 09-15-2024 End: 78-01-1112xskkssuhzxLLYPL M HEMMERNot AvailableStart: 08-24-2024 End: 84-85-8071Jhexyj flowsheetEulalio A Brown DO Work Phone: [facility]S ORTHOStart: 08-24-2024 End: 61-44-2168Ohhdlt flowsheetJason A Brown DO Work Phone: [facility]OM[facility] ORTHOStart: 08-24-2024 End: 99-09-1023Dtxyoud encounter procedureJason A Mahamed DO Work Phone: [facility] NB ORTHOComment on above:S/P right knee arthroscopy (Primary Dx)Start: 08-24-2024 End: 14-57-5831qoulmmsfpxQLKMU A BROWNNot AvailableStart: 07-30-2024 End: 83-74-0007wfowhgwurqJVARC A BROWNNot AvailableStart: 07-29-2024 End: 63-97-6312tiskleqryyXUORC A BROWNNot AvailableStart: 07-28-2024 End: 32-43-1833ltmdlgqtncZANXC A BROWNNot AvailableStart: 07-28-2024 End: 33-26-1114Gjlfja Christian Carlos DO Work Phone: [facility] External Department UnsolicitedStart: 07-27-2024 End: 09-75-4244Jjqsmxn encounter procedureJason A Mahamed DO Work Phone: [facility] NB ORTHOComment on above:Pre-op testingStart: 07-27-2024 End: 80-64-0582Habhfcd encounter statusJason Jojo Irby DO Work Phone: [facility] Work Phone: Start: 07-27-2024 End: 68-11-4522ekbbnsilkvSFVZN A BROWNNot AvailableStart: 07-27-2024 End: 50-85-1553Khrtlp flowsheetRobson A Brown DO Work Phone: [facility] ORTHOStart: 07-27-2024 End: 42-02-1483Dylqws marckNoelle Jojo Mahamed DO Work Phone: [facility] ORTHOStart: 07-24-2024 End: 02-60-3618fpremljukfLGX STAFFFacility:[facility] Start: 06-29-2024 End: 48-39-1542Paigqwfqq Result EncounterLinda PIEDRA Work Phone: [facility] External Department UnsolicitedStart: 06-29-2024 End: 80-31-3345Yrkowfozn Result EncounterLinda PIEDRA Work Phone: [facility] External Department UnsolicitedStart: 06-29-2024 End: 05-14-3287CjcbqoHkbut R Wattar MD Work Phone: CardiologyComment on above:Refill RequestStart: 06-29-2024 End: 50-54-5439Ephzpobaf encounterLinda PIEDRA Work Phone: [facility] CI FMStart: 06-25-2024 End: 86-45-1409Xojmoovjc encounterKayla Rose LPN Work Phone: [facility] CI FMStart: 06-15-2024 End: 05-21-5437Tbnbkjp encounter vilmaEulalio Jojo Mahamed DO Work Phone: [facility] NB ORTHOComment on above:Tear of medial meniscus of right knee, current, unspecified tear type, subsequent encounter (Primary Dx) Start: 06-15-2024 End: 26-23-2836qmfxncsnefCQLDZ A BROWNNot AvailableStart: 06-15-2024 End: 78-71-5475Vuftoe flowsNoelle Irby DO Work Phone: [facility] ORTHOStart: 06-15-2024 End: 09-12-3977Aiiann Matt Irby DO Work Phone: [facility] ORTHOStart: 06-11-2024 End: 95-68-6415Pprcoz follow up visit related to original Pari Bucio MD Work Phone: [facility] ST GENSComment on above:Screening for malignant neoplasm of colon (Primary Dx)Start: 06-11-2024 End: 38-95-7693lmnbbqsyuwECSZEN BUCIO VNot AvailableStart: 06-10-2024 End: 05-72-4243Rflmnr outpatient visit 25 minutesSedrick Lyons REGIONAL COORDINATOR Work Phone: [facility] FMComment on above:Strain of thoracic back region (Primary Dx); Muscle spasmStart: 06-10-2024 End: 81-75-6488pdtzvuvbqcAZW C MILLERNot AvailableStart: 06-10-2024 End: 51-39-1358Gthrqn Dayan Lyons REGIONAL COORDINATOR Work Phone: [facility] FMStart: 06-10-2024 End: 96-67-7353Gdfvyg Dayan Lyons REGIONAL COORDINATOR Work Phone: noms CI FMStart: 05-21-2024 End: 09-41-1575Jftcmo outpatient new 45 minutesGrace Bucio MD Work Phone: noms ST GENSComment on above:History of colon polyps (Primary Dx); Screening for malignant neoplasm of colonStart: 05-21-2024 End: 02-01-3681zdyuebsskaDIAIKW BUCIO VNot AvailableStart: 04-23-2024 End: 87-59-7333phfvxznywjQK Sedrick Ye Work Phone: [facility] Work Phone: Start: 04-23-2024 End: 78-44-4109Khtjrzv encounter procedureMD Sedrick Ye Work Phone: [facility] Work Phone: Start: 04-23-2024 End: 08-56-4716Khbnpgcq Result EncounterIrene Solares REGIONAL COORDINATOR Work Phone: noms External Department UnsolicitedStart: 04-23-2024 End: 64-31-1226Pigofnuo Result EncounterIrene Solares REGIONAL COORDINATOR Work Phone: noms External Department UnsolicitedStart: 04-23-2024 Registered RecurringMD Sedrick Ye Work Phone: [facility] Work Phone: Start: 04-20-2024 End: 93-95-4118Sgsjakjm Result EncounterTimmoise Li Breanna DO Work Phone: noms External Department UnsolicitedStart: 04-20-2024 End: 05-65-1086Tctaqsvi Result EncounterKeithmoise Li Breanna DO Work Phone: noms External Department UnsolicitedStart: 02-29-2024 ambulatoryIta Tuttle MD Work Phone: CardiologyStart: 95-07-2281Lkjltse encounter procedure Ita Tuttle MD Work Phone: CardiologyComment on above:FatigueStart: 02-12-2024 ambulatoryIta Tuttle MD Work Phone: CardiologyStart: 49-11-0171Blytnmc encounter procedure Ita Tuttle MD Work Phone: CardiologyComment on above:VitaminsStart: 01-30-2024 End: 22-30-0547Jgueitf encounter procedureIta Tuttle MD Work Phone: CardiologyComment on above:Paroxysmal atrial fibrillation (HCC) (Primary Dx); Atrial fibrillation, persistent (HCC); Benign essential HTN; Hypertension, unspecified type; Prescription refill; Tachycardia induced cardiomyopathy (HCC); Aortic root dilatation (HCC)Start: 01-23-2024 End: 48-04-5509cdaefesmvhFI Kim E Knight Work Phone: [facility] Work Phone: Start: 01-23-2024 End: 84-70-1032Merlftv encounter procedureMD Sedrick Ye Work Phone: [facility] Work Phone: Start: 71-35-0070Voygtdyjez Ehsan Khanight Work Phone: [facility] Work Phone: Start: 38-27-5247WdozpyZdrif R Wattar MD Work Phone: CardiologyComment on above:Refill RequestStart: 92-46-2967Hhstwxwor encounterIta Tuttle MD Work Phone: CardiologyStart: 07-31-2023 End: 44-01-7804Wumqvdp encounter procedureIta Tuttle MD Work Phone: CardiologyComment on above:Hypertension, unspecified type (Primary Dx); Aortic root dilatation (HCC)Start: 06-02-2023 End: 50-62-8597irndzhypbrLicgq M. LueFacility:EU DanykStart: 04-14-2023 End: 27-56-9707atpewidnajZrgsf M. LueFacility:CD:[id number]: 04-09-2023 End: 97-02-3955ygcdywdvamUWO KNIGHTFacility:BAYLStart: 24-15-8190PttvjsWxswtq Godoy APRN.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, DNP Work Phone: CardiologyComment on above:Refill RequestStart: 57-86-1600jvmvgfqwbtIltnkAlvaro Tuttle MD Work Phone: CardiologyComment on above:Eliquis and Aspirin questionStart: 01-21-2023 End: 49-33-9497siozzuvtxyCOMEY D HIGHLANDERFacility:S9Kdftb: 12-27-2022 End: 22-68-0800ciytigkcuhIP SEDRICK EY .Facility:R4Fpdwr: 12-25-2022 End: 93-85-8008Khqhynt encounter procedureIta Tuttle MD Work Phone: CardiologyComment on above:Hypertension, unspecified type (Primary Dx)Start: 12-24-2022 End: 20-62-6474jbenzxefchVRUJM D HIGHLANDERFacility:R5Ncmrs: 11-16-2022 End: 84-35-3171wccsqrrfjxHIVWUQEX EBERFacility:B0Ummed: 30-16-8888Ehywybmrj encounterHiren Sena MD Work Phone: CardiologyComment on above:Patient QuestionStart: 10-17-2022 End: 63-30-3172ybdbonfiopKDOBB R WATTARFacility:[facility] HospitalStart: 10-17-2022 End: 94-51-5443Virozmc encounter procedureIta Tuttle MD Work Phone: CardiologyComment on above:Hypertension, unspecified type (Primary Dx)Start: 60-70-5539gghkewzsliYsubw R Wattar MD Work Phone: CardiologyComment on above:NifedipineRefill Request Start: 30-11-4612CrwoqpLkumib Godoy APRN.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, DNP Work Phone: CardiologyComment on above:Refill RequestStart: 10-09-2022 End: 85-98-3031mddqohjmhhVL SEDRICK YE .Facility:F0Ltfjk: 10-80-5839Wncvmp Ita Tuttle MD Work Phone: CardiologyComment on above:Refill RequestStart: 09-13-2022 End: 09-57-3107Zbwzcay encounter procedureIta Tuttle MD Work Phone: CardiologyComment on above:Hypertension, unspecified type (Primary Dx)Start: 00-11-4369Hxuladkrv encounterIta Tuttle MD Work Phone: CardiologyComment on above:Patient UpdateResultsStart: 08-01-2022 End: 58-60-6717Nfwfnql encounter procedureHiren Sena MD Work Phone: CardiologyComment on above:Atrial fibrillation, persistent (HCC) (Primary Dx); Hypertension, unspecified type; DMITRY (obstructive sleep apnea); Benign essential HTN; S/P ablation of atrial fibrillation; Encounter for current long-term use of anticoagulantsStart: 09-37-9160Bgbbhexyvl Jonathan Sena MD Work Phone: [facility] DepartmentStart: 48-68-2540Cglfkfthtamanda Sena MD Work Phone: ccf [facility] MAINStart: 72-21-3634pjwtysgxdg Hiren Sena MD Work Phone: CardiologyComment on above:portable EKG transmitter machineStart: 05-10-2022 End: 24-15-7697Kfxotmc encounter procedureIta Tuttle MD Work Phone: CardiologyComment on above:Tachycardia induced cardiomyopathy (HCC) (Primary Dx)Start: 61-70-1755Igqcipycyc Jonathan Sena MD Work Phone: [facility] DepartmentStart: 51-05-9470Zcotojqisamanda Sena MD Work Phone: ccf [facility] MAINStart: 74-74-8699Ldjsaaxats Jonathan Sena MD Work Phone: [facility] DepartmentStart: 20-04-1206Hagsmaffqamanda Sena MD Work Phone: ccf [facility] MAINStart: 83-65-7929npwdxmrtfn Bridget LyonPulmonary MedicineStart: 21-76-5038Nsjbdoylbj Jonathan Sena MD Work Phone: [facility] DepartmentStart: 25-32-0419Zzlycdifjghulam Sena MD Work Phone: ccf [facility] MAINStart: 17-44-4525psekbkhltn Barbara Mccloud APRN.CNP Work Phone: CardiologyComment on above:update on weaning off SotalolEKG transmission machineStart: 26-86-4592I-mail encounter from caregiver Barbara Mccloud APRN.CNP Work Phone: ccf [facility] MAINStart: 15-62-8471fpqaqnuiyt Hiren Sena MD Work Phone: [facility]ENTERStart: 67-71-9716Nhfdof-up encounterThdwain Sena MD Work Phone: CardiologyComment on above:Sotalol follow upStart: 03-28-2022 End: 68-34-8851Avgpsyq encounter procedureIta Tuttle MD Work Phone: CardiologyComment on above:Atherosclerosis (Primary Dx); Ascending aorta dilatation (HCC); Tachycardia induced cardiomyopathy (HCC)Start: 80-10-8749jecyitfezcGhfcfwqsk Manuel [place] Work Phone: Pulmonary MedicineStart: 84-96-7739qbiautyfnmFdvigt Engelhardt APRN.CNP Work Phone: CardiologyComment on above:Ct scan resultsecho results Start: 12-44-0517S-mail encounter from caregiverBarbara Mccloud APRN.CNP Work Phone: ccf [facility] MAINStart: 03-22-2022 End: 90-57-5325Kgdslth encounter procedureBarbara Mccloud APRN.CNP Work Phone: CardiologyComment on above:Atrial fibrillation, persistent (HCC) (Primary Dx); Lung nodule; DMITRY (obstructive sleep apnea)Start: 03-22-2022 End: 72-27-9245Cvhockuiuk hospital visit by Mary Li (I-Stat) Work Phone: RadiologyComment on above:Persistent atrial fibrillation (HCC) [I48.19]Start: 68-06-1755Tfusraetbo TTMTvenecia Sena MD Work Phone: [facility] DepartmentStart: 37-26-9380Opaloeinf PlanTvenecia Sena MD Work Phone: CCN [facility] MAINStart: 08-85-7907Ulbdrufosh Jonathan Sena MD Work Phone: [phone] DepartmentStart: 40-09-7362Qbfvvybcx Mercedes Sena MD Work Phone: [phone] [facility] MAINStart: 86-39-6368Habfmllqid Jonathan Sena MD Work Phone: [phone] DepartmentStart: 91-67-8890Mdkarojzq Mercedes Sena MD Work Phone: [phone] [facility] MAINStart: 37-54-3871Yaplsxaopl Jonathan Sena MD Work Phone: [phone] DepartmentStart: 55-89-4441Lfhznfyqcghulam Sena MD Work Phone: [phone] [facility] MAINStart: 90-68-5582Cgoukdcuft Jonathan Sena MD Work Phone: [phone] DepartmentStart: 93-28-0601Dagmsxrkw Mercedes Sena MD Work Phone: [phone] [facility] MAINStart: 96-14-4664Kgojnfbmyk Jonathan Sena MD Work Phone: [phone] DepartmentStart: 24-06-8986Fskclnsqw Mercedes Sena MD Work Phone: [phone] [facility] MAINStart: 11-47-8932Fvxdvpnlwb TTAdams Sena MD Work Phone: [phone] DepartmentStart: 91-78-5936Lwwqnppzl Mercedes Sena MD Work Phone: [phone] [facility] MAINStart: 94-81-4852Wzqbvpvrsd Jonathan Sena MD Work Phone: [phone] DepartmentStart: 43-79-8539Gesvptuos Mercedes Sena MD Work Phone: ccf [facility] MAINStart: 06-00-4896Zgwiacknhi Jonathan Sena MD Work Phone: [facility] DepartmentStart: 56-28-2643Ostfgosepamanda Sena MD Work Phone: ccf [facility] MAINStart: 13-65-1811Wjfqoicktk Jonathan Sena MD Work Phone: [facility] DepartmentStart: 76-38-5233Edjvcvstrghulam Sena MD Work Phone: ccf [facility] MAINStart: 76-59-3972Jgfypgzzsi Jonathan Sena MD Work Phone: [facility] DepartmentStart: 09-90-7976Mzgsbbumdghulam Sena MD Work Phone: N [facility] MAINStart: 43-09-8313MY Get Medical AdviceIta Tuttle MD Work Phone: CardiologyComment on above:Mail order doesn t have prescriptionsStart: 30-60-0330Ipmcyxheje Jonathan Sena MD Work Phone: [facility] DepartmentStart: 48-28-3322Lxodyoritamanda Sena MD Work Phone: ccf [facility] MAINStart: 60-52-9015EshijoBbkbl R Wattar MD Work Phone: Internal MedicineComment on above:Refill RequestStart: 46-23-3157XtcftpPvfwvs J Dresing MD Work Phone: CardiologyComment on above:Refill RequestFurosemide needed before vacation tomorrowStart: 93-24-2440Ckcczbyoib Jonathan Sena MD Work Phone: [facility] DepartmentStart: 80-58-8466Qiydzbpbwamanda Sena MD Work Phone: ccf [facility] MAINStart: 48-56-0264Kemoge Only 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 APRN.CNP Work Phone: cardiologyComment on above:Persistent atrial fibrillation (HCC)Start: 69-89-3366Xmttlnaawe Jonathan Sena MD Work Phone: [facility] DepartmentStart: 17-21-7440Hmtmnkyasamanda Sena MD Work Phone: ccf [facility] MAINStart: 43-84-2859eregwgsddhaaron Sena MD Work Phone: CardiologyComment on above:Resent FMLA paperworkStart: 56-85-5355phbxtzjysgUekgdyJoão Sena MD Work Phone: CardiologyComment on above:Return to work dateStart: 97-58-3248Yxtbtxbhh encounterHiren Sena MD Work Phone: CardiologyComment on above:Post Dc Program Call - Needs Attnchest discomfort after ablationStart: 18-80-0715lgxdwixawqFicbefJoão Sena MD Work Phone: CardiologyComment on above:Transmitter (3 months) Start: 95-03-3812Kytjlpwsxn Jonathan Sena MD Work Phone: [facility] DepartmentStart: 79-10-7747Uunbasylqamanda Sena MD Work Phone: ccf [facility] MAINStart: 61-53-5894mmcjduivjvmelanie Sena MD Work Phone: CardiologyComment on above:Patient Education (PVI) Start: 02-07-6651Qvfbkhc encounter Ileana Ye Work Phone: [phone]-Aopyv [facility] [address] DO Work Phone: Start: 38-33-5952Huymsugiw encounterKitrish Ye Work Phone: [phone]-Lbbem [facility] [address] DO Work Phone: Start: 43-40-5056Aotvbex encounter procedureKitrish Ye Work Phone: [phone]-Jxmay [facility] [address] DO Work Phone: Start: 41-24-9830Kzwpj UpdateKitrish Ye Work Phone: [phone]-Iiklg [facility] [address] DO Work Phone: Start: 27-31-2326Pyjzir outpatient visit 25 minutesKitrish Whipple Ye Work Phone: [phone]-Zovzm [facility] [address] DO Work Phone: Procedures DateProcedureProcedure DetailPerforming ClinicianStart: 04-77-0757GRE LDHGeneric External Data ProviderStart: 62-20-8593SMM CMP (CMP) (FOR REMOTE [facility] USE) Generic External Data ProviderStart: 73-97-3615FHN CBC WITH AUTO DIFFGeneric External Data ProviderStart: 97-33-1486MGR CBC WITH AUTO DIFFGeneric External Data ProviderStart: 43-54-8025CSF CBC WITH AUTO DIFFGeneric External Data ProviderStart: 70-99-7417Auiuseaw screenKaren HemmerComment on above:Result Comment: PERFORMED BY: [place] [address] [place] [address] PATHOLOGIST AUTO MECHANIC SUPERVISOR DANIELLE QUINONES M.D.Start: 35-77-6183Blzok of haptoglobin quantitativeChristian Carlos DO Work Phone: Start: 04-11-7795DV scan of spleenKaren Hemmer REGIONAL COORDINATOR-C Work Phone: Start: 25-40-9284ZDR SED RATEGeneric External Data ProviderStart: 81-78-2788Rly routine ecg w/least 12 lds i&r onlyCcf Provider Start: 54-32-5752AIMMZDCYD REQUEST FOR LAB Tesfaye Carlos DO Work Phone: Start: 41-71-9375RZATSECUGMX PROFILEChristian Carlos DO Work Phone: Start: 21-60-4253Ziotxmuvzhkdj metabolic panelChristian Carlos DO Work Phone: Start: 26-17-9169Wfltg immunofixationComment on above: No monoclonality detected.Start: 91-67-9492Osnv marrow samplingStart: 01-13-2025 Comprehensive metabolic panelChristian Carlos DO Work Phone: Start: 33-54-8736IMDPBTIEGCZLS NEOGENOMICChristian Carlos DO Work Phone: Start: 76-44-4139Aiatgtzllgyafb aspir&/inj major jt/bursa w/o usEulalio Irby DO Work Phone: Start: 09-30-2024 End: 62-36-8291Bmdri hand minimum 3 viewsEulalio Irby DO Work Phone: Start: 81-39-7789Xiljthfo blood count with white cell differential, automatedChristian Carlos DO Work Phone: Start: 50-79-3324Gkpxqwcwzkzqf metabolic panelChristian Carlos DO Work Phone: Start: 46-79-3148QUOLAUCZ STATUS REPORTTimmoise Carlos DO Work Phone: Start: 16-40-7730XG THORACIC SPINE 3VLinda PIEDRA Work Phone: Start: 44-45-3897PILOKDX D 25 HYDROXY,TOT+D2+D3Irene Solares REGIONAL COORDINATOR Work Phone: Start: 27-36-1230Zuomenrnbilmc metabolic panelChristian Carlos DO Work Phone: Start: 25-24-4318Rqb routine ecg w/least 12 lds i&r onlyCcf ProviderStart: 71-04-8065UJF Janette YE .Comment on above: Performed By: #### PSASC #### [facility] [address] [place] [address] Dr. Gautam VanStart: 52-74-5603Ifgnq 1996 panel - Serum or PlasmaBill Tuttle MD Work Phone: Start: 64-02-4877Huj routine ecg w/least 12 lds i&r onlyCcf ProviderStart: 16-49-2805EUUIIBXECK TRANS TELE MEASUREThomas Guillermo Sena MD Work Phone: Start: 67-14-8432PFZODNOYVW TRANS TELE MEASUREThdwain Sena MD Work Phone: Start: 03-63-1613GTQYSDVATZ TRANS TELE MEASUREHiren Sena MD Work Phone: Start: 02-67-7022IRIIZBAPRE TRANS TELE MEASUREThomas Guillermo Sena MD Work Phone: Start: 71-94-7786Pc heart contrast eval cardiac structure&morphNolan Juan DIRECTOR STARS.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 Work Phone: Start: 14-87-6866Fhmcbxpsxv [Mass/volume] in Serum or PlasmaCcf ProviderStart: 59-81-8333IQLUBHWVTQ TRANS TELE MEASUREThomas Guillermo Sena MD Work Phone: Start: 96-78-1368DNMISQUERS TRANS TELE MEASUREThomas Guillermo Sena MD Work Phone: Start: 14-55-0288MLUAZUCDPD TRANS TELE MEASUREThomas Guillermo Sena MD Work Phone: Start: 63-05-2894IPWXGEVODE TRANS TELE MEASUREThomas Guillermo Sena MD Work Phone: Start: 58-94-9716VHJRGYOPDN TRANS TELE MEASUREThomas Guillermo Sena MD Work Phone: Start: 55-17-7544ZWHZADIFBN TRANS TELE MEASUREThomas Guillermo Sena MD Work Phone: Start: 22-90-0843VNRUULWMSE TRANS TELE MEASUREThomas Guillermo Sena MD Work Phone: Start: 47-88-9868CQBDVRAQCP TRANS TELE MEASUREThomas J Nathen LYNCH Work Phone: Start: 21-93-7589QUOIIZUBNM TRANS TELE MEASUREThomas Guillermo Sena MD Work Phone: Start: 21-08-4740OBKLTRZPHM TRANS TELE MEASUREThomas Guillermo Sena MD Work Phone: Start: 04-84-1440EINTUMIRQC TRANS TELE MEASUREThomas Guillermo Sena MD Work Phone: Start: 35-23-3790VJWZMJAYMM TRANS TELE MEASUREThomas Guillermo Sena MD Work Phone: Start: 80-36-9045SDTCQIDKBB TRANS TELE MEASUREThomas Guillermo Sena MD Work Phone: Start: 68-92-2853YOLDESSEPP TRANS TELE MEASUREThomas Guillermo Sena MD Work Phone: Start: 43-36-2230FXOHMIEEDZ TRANS TELE MEASUREThomas Guillermo Sena MD Work Phone: Start: 98-74-1337CseehxkxdqshbflbUuwrw: 10-02-2018 ColonoscopyKeithmoise Goldomar DO Work Phone: Total colonoscopyRennytrish Whipple Ye Work Phone: Comment on above:08/2009; Plan of Treatment DateCare ActivityDetailAuthorStart: 66-06-7949MBP Vaccine (1 - 1-dose 75+ series)RSV Vaccine (1 - 1-dose 75+ series)[facility]2030 Prostate specific antigen measurementProstate Cancer Screening Discussion [facility]: 21-56-8861Tiinevzxq for malignant neoplasm of colonNOMS HealthcareStart: 22-24-4037Vzzeorbh ScreeningDiabetes ScreeningWhite Hospital Start: 13-64-1593EJIHMOTP CANCER SCREENING DISCUSSIONPROSTATE CANCER SCREENING DISCUSSIONEast [facility] Hospitaltart: 40-96-1997Tdiffxxm specific antigen measurement Prostate Cancer Screening DiscussionEast [facility] Hospitaltart: 99-45-5827Kaaaj 1996 panel - Serum or PlasmaLipid ScreeningEast [facility] Regional Hospitaltart: 06-55-1000Uknfb panelLipid ScreeningEast [facility] Regional Hospitaltart: 66-06-3560ULACS SCREENLIPID SCREEN [facility]: 56-21-7478LHCSCEJP CANCER SCREENING DISCUSSIONPROSTATE CANCER SCREENING DISCUSSIONEast [facility] Hospitaltart: 11-01-8078Pzrkctio Screening Diabetes ScreeningEast [facility] Regional Hospitaltart: 72-02-9696PPAHD SCREENLIPID SCREEN [facility]: 62-62-8342OWLPXMVZ CANCER SCREENING DISCUSSIONPROSTATE CANCER SCREENING DISCUSSIONEast [facility] Hospitaltart: 04-05-2026 End: 34-48-7395Osopmoy encounter yfubjvbgs51/12/2026 8:00 AM EDT Office Visit Cardiology [address] [place] [address] [place] [address] [place] [address] yearly follow upCardiologyComment on above:yearly follow up Start: 07-08-2026Medicare Annual Wellness (AWV)Medicare Annual Wellness (AWV) [facility] HealthcareStart: 34-53-1893WKFWIGFP SCREENDIABETES SCREENWhite Hospital Start: 15-34-6323Vjjzfxtc ScreeningDiabetes ScreeningEast [facility] Hospitaltart: 29-05-2954ZXLQJRKS SCREENDIABETES SCREENEast [facility] Regional Hospitaltart: 06-13-2025 End: 54-74-5892Niseuan encounter qgqalljlq07/20/2025 10:30 AM EDT Office Visit Cardiology [address] [place], [place] [id number] PAF (paroxysmal atrial fibrillation) (HCC) [I48.0]CardiologyComment on above:PAF (paroxysmal atrial fibrillation) (HCC) [I48.0]Start: 38-82-5274KswonqqvvKettering Health Behavioral Medical Centertart: 16-77-3134CspfouqfsKettering Health Behavioral Medical Centertart: 04-25-2025 Influenza vaccinationNOMO HealthcareStart: 04-04-2025 End: 35-59-6280Vuhdkoc encounter inysjezdi76/11/2025 2:30 PM EDT Office Visit Cardiology [address] [place] [address] [place] [address] [place] [address] Return in about 6 months (around 03/21/2025) for Please schedule appt with Dr. Tuttle in 6months.CardiologyComment on above:Return in about 6 months (around 03/21/2025) for Please schedule appt with Dr. Tuttle in 6 months.Start: 77-15-6546JMYAPUZJ SCREENDIABETES SCREENEast [facility] Regional Hospitaltart: 03-01-2025 End: 00-36-2419Sejjuxj encounter procedureNOMS CI FMComment on above:Arrived Start: 60-07-0333BpwlwghxaKettering Health Behavioral Medical Centertart: 02-08-2025 End: 22-62-1811Cgdjhdh encounter lifpsffoq84/17/2025 4:00 PM EDT Office Visit [facility] [address] [facility] [address] [place] [address] Linda Jansen PA [address] [place] [address] [facility] CI FMStart: 12-09-2024 End: 92-01-4468Ngkoqsw encounter ggongmwob24/17/2025 3:45 PM EDT Office Visit [facility] [address] [place] [address] Eulalio Irby DO [address] [place] [address] ArrivedNOMS NB ORTHOComment on above:ArrivedStart: 12-03-2024 DIABETES SCREENDIABETES SCREENEast [facility] Regional Hospitaltart: 10-28-2024 End: 51-87-3605Ajhkgmk encounter ujthldpdz34/06/2025 3:45 PM EST Office Visit [facility] [address] [place] [address] Eulalio Irby, DO [address] [place] [address] [facility] ORTHOStart: 00-20-6918LJEAYPHU SCREENDIABETES SCREEN [facility]: 09-30-2024 End: 65-12-4100Etwcmmc encounter cksxsphax08/06/2025 3:30 PM EST Office Visit [facility] [address] [place] [address] Eulalio Irby, DO [address] [place] [address] [facility] ORTHOStart: 98-73-0987Vgqthbg Directive Discussion Advance Directive DiscussionEast [facility] Regional Hospitaltart: 38-47-9092Zrayerhyxedc Vaccine: 65+ Years (1 of 1 - PCV)Pneumococcal Vaccine: 65+ Years (1 of 1 - PCV) [facility] HealthcareStart: 08-24-2024 End: 44-31-1818Gujfuka encounter procedureNOMS ORTHOComment on above:Arrived Start: 08-03-2024 End: 99-87-2173FMA W Auto Differential panel - BloodCBC auto differential Lab Routine Pre-op testing Expected: 08/03/2024 (Approximate), Expires: 07/27/2025 [facility] Work Phone: Comment on above:Expected: 08/03/2024 (Approximate), Expires: 07/27/2025Start: 08-03-2024 End: 17-42-1576Ybsicmeagnmha metabolic 2000 panel - Serum or PlasmaComprehensive metabolic panel Lab Routine Pre-op testing Expected: 08/03/2024 (Approximate), Expires: 07/27/2025N[facility]S HealthcareComment on above:Expected: 08/03/2024 (Approximate), Expires: 07/27/2025Start: 07-30-2024 End: 22-61-3555Vqvzaehoeoqf / ancillary services uskeprowzu21/06/2024 3:30 PM EST Ancillary Procedure [facility] MR [address] [place] [phone] [facility] FNR MRStart: 07-30-2024 End: 08-16-2617Rlsrxpw encounter tkzyqrsop40/06/2024 3:00 PM EST Office Visit Cardiology [address] [place] [address] [place] [address] [place] [address] 6 month follow upCardiologyComment on above:6 month follow up Start: 07-27-2024 End: 22-63-8182Agilnru encounter ajtwubfdb33/03/2024 3:30 PM EST Office Visit [facility] [address] [place] [address] Eulalio Irby DO [address] [facility] [address] ArrivedNOMS NB ORTHOComment on above:ArrivedStart: 07-27-2024 End: 07-15-2705JPQ 12 leadECG 12 lead ECG Routine Pre-op testing Expected: 07/27/2024 (Approximate), Expires: 07/27/2025NOMS HealthcareComment on above: Expected: 07/27/2024 (Approximate), Expires: 07/27/2025Start: 06-25-2024 End: 61-13-2566OI Thoracic spine 3 ViewsXR thoracic spine 3 views Imaging Routine Strain of thoracic back region Muscle spasm Expected: 06/25/2024, Expires: 06/25/2025[facility] Work Phone: Comment on above:Expected: 06/25/2024, Expires: 06/25/2025Start: 06-15-2024 End: 81-94-7518Punsnze encounter procedureNOMS NB ORTHOComment on above:Arrived Start: 06-11-2024 End: 85-00-1515Ccogppo encounter /18/2024 12:00 PM EDT Office Visit [facility] [address] [place] [id number] Grace Bucio MD [address] [facility] [address] [place] [address] [facility]: 06-10-2024 End: 20-79-8414Idtqmjy encounter wttycrprn30/17/2024 4:30 PM EDT Office Visit [facility] [address] [place] [address] Sedrick Lyons, REGIONAL COORDINATOR [address] [place] [address] ArrivedNOMS CI FMComment on above:ArrivedStart: 06-02-2024 End: 21-98-3509Ftseqkq encounter pgspucggd06/09/2024 2:30 PM EDT Procedure Visit [facility] Grace Bucio MD [address] [place] [address] [facility] EXT DEPStart: 05-21-2024 End: 12-01-9066Bjoowwr encounter efjbqysfh60/27/2024 12:00 PM EDT Consult [facility] [address] [facility] [address] [place] [id number] Grace Bucio MD [address] [place] [address] GENSStart: 05-04-2024 End: 50-38-4782Ywazbnh encounter ealvxercd91/10/2024 3:00 PM EDT Consult [facility] [address] [facility] [address] [place] [phone] Grace Bucio MD 703 [facility] [address] [place] [address] GENSStart: 80-06-1558Ttrbm-19 Vaccine ( season)Covid-19 Vaccine ()[facility]: 00-94-5794Xziccmzkb vaccinationEast [facility] Regional Hospitaltart: 01-30-2024 End: 20-18-0715Ciumwwo encounter ybpbbxmqk72/07/2024 3:00 PM EDT Office Visit Cardiology [address] [place] [address] [place] [address] [place] [address] Return in about 6 months (around 01/30/2024).CardiologyComment on above:Return in about 6 months (around 01/30/2024).Start: 41-90-4040Tzpckkggnt Health ScreeningBehavioral Health ScreeningEast [facility] Regional Hospitaltart: 08-25-2023 Depression AssessmentDepression AssessmentEast [facility] Regional Hospitaltart: 04-25-2023 Covid-19 Vaccine ( season)Covid-19 Vaccine () [facility]: 86-87-3064Vooyoidrb vaccinationEast [facility] Regional Hospitaltart: 82-57-1667MO CONTROLLED (<130/80)BP CONTROLLED (<130/80)[facility]: 46-95-0684UF CONTROLLED (<130/80)BP CONTROLLED (<130/80)[facility]: 38-32-4116GJBQQNBUXB ASSESSMENTDEPRESSION ASSESSMENTEast [facility] Hospitaltart: 40-46-0487Egcmpquby vaccinationEast [facility] Regional Hospitaltart: 03-28-2022 End: 38-46-8097Hbbrkkswgblwv metabolic 2000 panel - Serum or PlasmaCOMP METABOLIC PANEL Lab Routine Atherosclerosis Expected: 03/28/2022, Expires: 05/28/2022[facility] Work Phone: Comment on above:Expected: 03/28/2022, Expires: 05/28/2022tart: 03-28-2022 End: 60-16-6080Pmqeq 1996 panel - Serum or PlasmaLIPID PANEL BASIC Lab Routine Atherosclerosis Expected: 03/28/2022, Expires: 05/28/2022[facility] Work Phone: Comment on above:Expected: 03/28/2022, Expires: 05/28/2022tart: 03-13-2022 End: 13-43-9972Um heart contrast eval cardiac structure&morphCT PULMONARY VEIN W IVCON Radiology Routine Persistent atrial fibrillation (HCC) Expected: 03/13/2022, Expires: 01/11/2023[facility] Work Phone: comment on above:Expected: 03/13/2022, Expires: 01/11/2023Start: 12-12-2021 End: 18-98-4008EPY COMPLETEECG COMPLETE ECG Routine Persistent atrial fibrillation (HCC) Expected: 12/12/2021, Expires: 12/12/2022[facility] Work Phone: comment on above:Expected: 12/12/2021, Expires: 12/12/2022Start: 54-02-3161WES, Provider: Tera Davison, Status: Pen, Time: 3:10 PMFUV, Provider: Tera Davison, Status: Pen, Time: 3:10 PMMP-[facility]-[place] [address] DO Work Phone: Start: 90-79-2384UTQ, Provider: STANISLAV RAMIREZ [employer] CUTTER 1,[id number], Status: Pen, Time: 1:30 PMEKG, Provider: STANISLAV RAMIREZ [employer]OM[employer]RIC CUTTER 1,[id number], Status: Pen, Time: 1:30 PMMP-[facility]-[place] 250 DO Work Phone: Start: 20-80-6421TMZVMOVOM, Provider: Tera Davison, Status: Pen, Time: 10:00 [facility], Provider: Tera Davison, Status: Pen, Time: 10:00 [facility] Work Phone: Start: 60-75-1382XUXUBSPDWR ASSESSMENTDEPRESSION ASSESSMENTEast [facility] Regional Hospitaltart: 35-29-6244JWNBECJZJ, Provider: Tera Davison, Status: Pen, Time: 9:00 [facility], Provider: Tera Davison, Status: Pen, Time: 9:00 [facility]-[place] 250 DO Work Phone: Start: 94-26-1467YKT Vaccine (1 - 1-dose 60+ series) RSV Vaccine (1 - 1-dose 60+ series)[facility]: 38-23-2139NJIQVNZB CANCER SCREENING DISCUSSIONPROSTATE CANCER SCREENING DISCUSSIONWhite Hospital Start: 84-48-0852Lzchfzxtdnju Vaccine: 50+ (1 of 1 - PCV)Pneumococcal Vaccine: 50+ (1 of 1 - PCV)[facility]: 52-41-6332Qrzkvhqewfcy Vaccine: 65+ Years (1 of 1 - PCV)Pneumococcal Vaccine: 65+ Years (1 of 1 - PCV)[facility] HealthcareStart: 55-99-1536NXKSDEIA VACCINE (1 of 2)SHINGRIX VACCINE (1 of 2) [facility]: 01-65-1197IODHAGTGE (FIT-DNA)COLOGUARD (FIT-DNA)[facility]: 04-02-2417RucrajenzmfLWODAGVFDVRDyctbrkhd ClinicStart: 2004 COLORECTAL CANCER SCREENINGCOLORECTAL CANCER SCREENINGEast [facility] Regional Hospitaltart: 06-69-5325BN COLONOGRAPHYCT COLONOGRAPHYEast [place] Regional Hospitaltart: 63-83-3864JPQBP OCCULT BLOODFECAL OCCULT BLOODEast Ohio Regional Hospitaltart: 19-77-4809Yfdjmxxbm for malignant neoplasm of colonEast [facility] Regional Hospitaltart: 86-92-5998KYYZSKBGVFNRB SIGMOIDOSCOPYEast Ohio Regional Hospitaltart: 27-96-2957EKQFP SCREENLIPID SCREENEast [facility] Regional Hospitaltart: 31-03-7173Eniwnlmperlg Vaccine: 65+ Years (1 of 2 - PCV) Pneumococcal Vaccine: 65+ Years (1 of 2 - PCV)[facility] HealthcareStart: 1978 Urine microalbumin profileEast [facility] Regional Hospitaltart: 28-22-4720LPVLDP PCP TEAM CHRONIC DISEASE VISITANNUAL PCP TEAM CHRONIC DISEASE VISITEast [facility] Regional Hospitaltart: 77-81-8764Tbfagdl ScreeningAnxiety ScreeningEast [facility] Regional Hospitaltart: 25-10-4785OU CONTROLLED (<130/80)BP CONTROLLED (<130/80)[facility]: 1977 Depression ScreeningDepression ScreeningEast [facility] Regional Hospitaltart: 1977 HEPATITIS C SCREENINGHEPATITIS C SCREENINGEast [facility] Regional Hospitaltart: 1977 Hepatitis C screeningHepatitis C ScreeningEast [facility] Regional Hospitaltart: 35-99-1127NSR SCREENINGHIV SCREENINGEast [facility] Regional Hospitaltart: 71-62-7058LCI screeningHIV ScreeningEast [facility] Regional Hospitaltart: 42-17-1709Ycddv depression screening assessment DEPRESSION SCREENINGEast [place] Regional Hospitaltart: 21-64-2984RKJMM-19 VACCINE (#1)COVID- 19 VACCINE (#1)[facility]: 49-34-6694XTGTD-19 VACCINE (1)COVID-19 VACCINE (1)[facility]: 73-63-5535BDIEM-19 VACCINE (#1)COVID-19 VACCINE (#1)[facility]: 71-12-5041Znbpiwahp for malignant neoplasm of colonSPANISH FORK [facility] Kntbublksl83-lfilmcrpkgxqzn D3 [Mass/volume] in Serum or Plasma Vitamin D 25 hydroxy Total Lab Routine Wellness examination Muscle cramping Ordered: 03/01/2025[facility] CenterComment on above:Ordered: 03/01/2025 Yqbi-9-Ouirtmwudlybg [Mass/volume] in Serum or PlasmaThe Bellevue HospitalBlood type and Indirect antibody screen panel - BloodThe Bellevue HospitalBone marrow samplingThe Bellevue HospitalCBC W Auto Differential panel - BloodCBC auto differential Lab Routine 04/20/2024 6:07 AM [facility] Work Phone: cbc W Auto Differential panel - BloodCBC auto differential Lab Routine 01/13/2025 7:10 AM [facility] Work Phone: cbc W Auto Differential panel - BloodCBC auto differential Lab Routine 02/10/2025 9:15 AM [facility] Work Phone: cbc W Auto Differential panel - BloodCBC auto differential Lab Routine 05/12/2025 9:36 AM [facility] Work Phone: [facility] metabolic 1999 panel - Serum or Plasma The Belle[facility] HospitalComprehencatawba valley medical center metabolic 1999 panel - Serum or PlasmaThe Bellevue HospitalComprehenve metabolic 1999 panel - Serum or PlasmaThe Bellevue HospitalComprehenve metabolic 1999 panel - Serum or PlasmaComprehenve metabolic panel Lab Routine 05/12/2025 9:36 AM EDTNOMO [facility] Work Phone: [facility] 1999 panel - Serum or Plasma The Bellevue HospitalComprehenve metabolic 1999 panel - Serum or [facility] End: 47-06-5141NIE COMPLETEECG COMPLETE ECG Routine Atrial fibrillation, persistent (HCC) 1 Occurrences starting 08/01/2022 until 08/01/2023[facility] Work Phone: Comment on above:1 Occurrences starting 08/01/2022 until 08/01/2023ECG COMPLETEECG COMPLETE ECG 08/01/2022 2:00 PM [facility] End: 14-88-1607EqhyzknzyrekmdjwTATE Cardiology Routine Persistent atrial fibrillation (HCC) 1 Occurrences starting 12/12/2021 until 12/12/2022[facility] Work Phone: comment on above:1 Occurrences starting 12/12/2021 until 12/12/2022 End: 99-28-4518VjlxlnnuybytacuxVOYB Cardiology Routine PAF (paroxysmal atrial fibrillation) (HCC) 1 Occurrences starting 04/04/2025 until 04/04/2026[facility] Work Phone: Comment on above:1 Occurrences starting 04/04/2025 until 04/04/2026Ferritin [Mass/volume] in Serum or PlasmaFerritin Lab Routine 04/23/2024 3:51 PM EDTNOMS HealthcareFREE K+L LT CHAINS, QN, SFREE K+L LT CHAINS, QN, S Lab Routine 02/10/2025 9:15 AM EDTNOMO HealthcareHaptoglobin [Mass/volume] in Serum or [facility] CenterHaptoglobin [Mass/volume] in Serum or [facility] CenterHemoglobin A1c/Hemoglobin.total in BloodHemoglobin A1c Lab Routine Muscle cramping Wellness examination IFG (impaired fasting glucose) Ordered: 03/01/2025[facility] Comment on above:Ordered: 03/01/2025Iron and Iron binding capacity panel - Serum or PlasmaIron and TIBC Lab Routine 04/23/2024 3:51 PM [facility] Work Phone: Iron and Iron binding capacity panel - Serum or Plasma Iron and TIBC Lab Routine 05/12/2025 9:36 AM [facility] HospitalLipid 1996 panel - Serum or PlasmaLipid panel Lab Routine Wellness examination Primary hypertension Ordered: 03/01/2025[facility] CenterComment on above:Ordered: 03/01/2025[facility]An[facility] Bone Marrow Aspiration or Biopsy Know your [facility] Work Phone: [facility] Work Phone: Prostate specific Ag [Mass/volume] in Serum or Plasma PSA Lab Routine Wellness examination Screening for malignant neoplasm of prostate Ordered: 03/01/2025[facility] CenterComment on above:Ordered: 03/01/2025 Protein electrophoresis, serumProtein electrophoresis, serum Lab Routine 02/10/2025 9:15 AM [facility] Work Phone: TSH W/REFLEX TO FT4TSH W/REFLEX TO FT4 Lab Routine Muscle cramping Wellness examination Ordered: 03/01/2025[facility] Work Phone: Comment on above:Ordered: 03/01/2025VIT. B12/FOLATE PROFILEVIT. B12/FOLATE PROFILE Lab Routine 04/23/2024 3:51 PM [facility] Immunizations Immunization DateImmunizationNotesCare FhlvdgyyYdqnliqe64-01-7132ffcyimmwe, injectable, quadrivalent, preservative freeChristian Carlos DO Work Phone: [facility] CenterJlvrzhxpyg01-69-2550erqowjlbp virus vaccine, unspecified formulationBill Tuttle MD Work Phone: White HospitalOhnzby00-29-5395ciufaikqh, injectable, quadrivalent, preservative freeKim E Ye Work Phone: White HospitalFjboxf61-04-8501amtjdsgdu, seasonal, injectableKim E Ye Work Phone: [phone]-UdufgM [facility] 250 DO Work Phone: [phone] 464-609410706068-48-3928kvoiqtvuj, injectable, quadrivalent, preservative freeKim E Ye Work Phone: [facility] HospitalNbfdnn40-39-9283jlxweglac B vaccine, adult dosageKim E Ye Work Phone: [facility] HospitalCzclme42-37-2930ibhumwnrn B vaccine, adult dosageKim E Ye Work Phone: [facility] HospitalLtwyqm03-08-7745yrmdmbbel B vaccine, adult dosageKim E Ye Work Phone: [facility] Payers DatePayer CategoryPayerPolicy ID2025MedicareMEDICARE Member Subscriber Plan / Payer (Effective 2025-Present) Name: Darius Valera MemberID: [id number] Relation to Subscriber: Self Name: Darius Valera Subscriber ID: [id number] PayerID: STATE Group ID: Not on file Type: Medicare Address: [address] [id number] [id number] [id number] Health Insurance [id number]77850.071929.53303-88-1606Egkgqax11-75-2963 UnknownMMO MMO MHS [id number] 2020-Present [phone] [address] [address] [place] [address] [id number] 1.2.840.875104.1.13.159.2.7.3.085[id number] [id number] 2.16.840.1.308840.3.579.2.593 32-29-7647Eravjpn1483977 2.16840.1.549840.3.579.2.05861-03-6297Cgwltfa8781998 2.16.840.1.115118.3.579.2.02273-45-8095Cnfdifr5146990 2.16.840.1.263973.3.579.2.68027-87-6063Mtxbovt80163995 2.16.840.1.546222.3.579.2.99975-49-1310Knhpozx24820351 2.16.840.1.002244.3.579.2.42779-83-2339Otdtryv62993456 2.16.840.1.387376.3.579.2.16884-38-2381Qwdolwv72969446 2.16.840.1.915252.3.579.2.26625-89-5796Rwihidb13628407 2.16.840.1.562227.3.579.2.19540-85-4994Isveeti12684867 2.16.840.1.629712.3.579.2.289682-94-3204Juitvjp7488399 2.16.840.1.529455.3.579.2.493804-62-5586Zoxmkox7870070 2.16.840.1.855960.3.579.2.164752-19-2428Cvwnvxq2135886 2.16.840.1.769025.3.579.2.389242-71-3106Zhkyaxk6873590 2.16.840.1.750893.3.579.2.067947-94-7058Xnqzpec8224087 2.16.840.1.933476.3.579.2.930534-63-0514Mdmorau4793576 2.16.840.1.751413.3.579.2.693212-59-7178Xrgrzug0366283 2.16.840.1.801039.3.579.2.286404-74-6904Qjheguu0474226 2.16.840.1.730768.3.579.2.583389-61-5563Rddsxmy2520025 2.16.840.1.111438.3.579.2.119383-51-7696Ybedpza8375361 2.16.840.1.840177.3.579.2.371694-05-3209Dpjhpob6123263 2.16.840.1.311131.3.579.2.938006-95-7580Puapldf2659633 2.16.840.1.778643.3.579.2.751554-84-4812Yujqmfb6486966 2.16.840.1.007916.3.579.2.036938-80-9892Ymleruz9617249 2.16.840.1.865486.3.579.2.042929-89-7810Ppwwcsl6856356 2..840.1.889458.3.579.2.853034-80-1781Lzvyfqr9158080 2.16.840.1.442030.3.579.2.439935-40-3382Jdjriil7511265 2.16.840.1.181531.3.579.2.967038-63-6056Iqkz-fdv02957650513-93-1605Tjveni's Flyjxwdpgzvq91332559Bbijkco9844104 2.16.840.1.706801.3.579.2.859Rehjiut34051829 2..840.1.364440.3.579.2.272Uhwtkgm24486433 2.16.840.1.813146.3.579.2.531 Jirfpat59518199 2..840.1.286173.3.579.2.617Urwoqrc80918432 2.16.840.1.817841.3.579.2.531 Social History DateTypeDetailFacilityStart: 01-17-2023 End: 74-66-4288Fvwquzlj alcohol occasionallyConsumes alcohol occasionallyNOMS HealthcareComment on above:COFFEE ONCE IN A WHILE;occasionally;Start: 08-27-2021 End: 66-40-0622Jcjboij smoking status NHISNever smoked tobaccoWhite Hospital Start: 64-95-4888Qlf Assigned At BirthNot on fileEast Ohio Regional Hospitaltart: 11-09-2021 End: 14-86-2908Hjwpigtf to SARS-CoV-2 (event)Not sureEast [place] Regional Hospitaltart: 08-27-2021 End: 74-81-8126Ffkmpec use and exposureSmokeless tobacco non-userEast [facility] Regional Hospitaltart: 12-03-2021 End: 11-81-1222Cpsncde intakeEx-drinker (finding)[facility]: 12-25-2021 End: 82-66-6465Qbybjxxj to SARS-CoV-2 (event)Unable to assessWhite Hospital Work Phone: Start: 01-17-2023 End: 37-11-3474Cxnccdm use panelNONorthwest Medical CenterStart: 06-01-2021 End: 19-43-1411Reviqdmf Score (1-100), lower number is lower mypw98XesvddepcEast [place] Regional Hospitaltart: 60-41-8503Mxq [facility]igned At [facility]ertart: 06-09-2024 End: 10-38-3466Zocwvyzcx beverage intakeCurrent drinker of alcohol (finding)[facility] HealthcareWithin the last year, have you been afraid of your partner or ex-partner?NoNOMS HealthcareDo you belong to any clubs or organizations such as hoahaoism groups, unions, fraCytori Therapeutics or athletic groups, or school groups?YesNOMS HealthcareAre you now , , , , never or living with a partner?MarriedNOMS HealthcareHow often to you have a drink containing alcohol?2-4 times a monthNOMS HealthcareHow many standard drinks containing alcohol do you have on a typical day?1 or 2NOMS HealthcareHow often do you have 6 or more drinks on 1 occasion?NeverNOMS HealthcareDo you feel stress - tense, restless, nervous, or anxious, or unable to sleep at night because yourmind is troubled all the time - these days [OSQ]Only a littleNOMS Healthcare(I/We) worried whether (my/our) food would run out before (I/we) got money to buy more.Never trueNOMO HealthcareStart: 06-35-4372Drbehxr Comment Caffeine intake: 1-2 cups per dayExcelsior Springs Medical CenterStart: 12-07-2024 End: 59-41-4773RodKcld (finding)[facility] Functional Status DzcwZrcnnrtpldFveigwUpncstdc90-94-8900Ikhlsml Health Questionnaire 2 item (PHQ- 2) [Reported][facility] CenterWscdwvantk57-25-1926Wgikggl Health Questionnaire 2 item (PHQ- 2) [Reported][facility] Medical CenterKaqzurlxbx55-74-5821Mva you deaf, or do you have serious difficulty hearingNo 12/04/2021 11:08 AM Irene Teixeira RN NoCSuburban Community Hospital & Brentwood HospitalOmqyyl44-32-5872Spg you blind, or do you have serious difficulty seeing, even when wearing glassesNo 12/04/2021 11:08 AM EDT Irene Tidwell RN [facility]04-12-2022Do you have serious difficulty walking or climbing stairsNo 12/04/2021 11:08 AM EDT Irene Tidwell RN [facility]04-12-2022Do you have difficulty dressing or bathingNo 12/04/2021 11:08 AM EDT Irene Tidwell RN [facility] HospitalOfbmqu63-34-1169Kxceaxx of a physical, mental, or emotional condition, do you have difficulty doing errands alone such as visiting a physician's office or shoppingNo 12/04/2021 11:08 AM EDT Irene Tidwell RN No [facility] Mental Status HnhxUcmwkkxdqlLmodaqIlgzrohd69-12-6636Mgskrvl of a physical, mental, or emotional condition, do you have serious difficulty concentrating, remembering, or making decisionsNo 12/04/2021 11:08 AM EDT Irene Tidwell RN [facility] Clinical Notes 11-30-2021 to 05-13-2025 Note Date & JuglXoahGjglyzwc69-52-5035 Evaluation note* Diagnosis Onset Date Resolution Status Admit Date Autoimmune hemolytic anemia acuteSeptember 2024 9:24amCLL (chronic lymphocytic leukemia)acuteSeptember 2024 9:24am [facility] Work Phone: 1(823) 817-565109-12-2025 Progress note Author Christian Carlos The Bellevue HospitalNote Date/TimeSeptember 2024 4:02pm [facility] [place] [address] Cancer Center Note Signed Patient: Darius Valera MR#: [id number] : 1960 Acct:[id number] Age/Sex: 64 / M Type: MONTY AMB Date of Service: Copies to: Linda Jansen PA-C~ Assessment & Plan CHEMO PLAN No Active Chemotherapy History of Present Illness HPI got labs at [facility]. his called us this morning [...] No Known Allergies Allergy (Verified 02/19/25 09:38) [facility] Medical History Medical History Lymphocytosis Kidney stone March 2023-removed History of torn meniscus of right knee DMITRY on CPAP Problem List clean-up [facility] A-[facility] Problem List clean-up per request of Phys. [facility] Hypertension Problem List clean-up per request of Phys. [facility] Surgical History Surgical History History of surgery on right wrist excision of mass right wrist 07/14/2020 H/O cardiac radiofrequency ablation History of vasectomy Problem List clean-up per request of Phys. [facility] Family History Family History Father Gene disease Father Mother Cancer Endometrial Cancer Grandparent Pancreatic cancer Social History Social History (Updated 02/19/25 @ 09:39 by Irene Garcia CMA) Smoking status: Never smoker Nicotine [...] by Christian Carlos II, DO> 05/06/25 1602 [facility] Work Phone: 1(158) 801-434909-12-2025 Progress [facility] [place] [address] Cancer Center Note Signed Patient: Darius Valera MR#: [id number] : 1960 Acct:[id number] Age/Sex: 64 / M Type: [facility] AMB Date of Service: Copies to: Linda Jansen PA-C~ Assessment & Plan CHEMO PLAN No Active Chemotherapy History of Present Illness HPI got labs at [facility]. his called us this morning [...] No Known Allergies Allergy (Verified 02/19/25 09:38) [facility] Medical History Medical History Lymphocytosis Kidney stone March 2023-removed History of torn meniscus of right knee DMITRY on CPAP Problem List clean-up per request of Phys. [facility]HR [facility] A-fib Problem List clean-up per request of Phys. [facility]HR [facility] Hypertension Problem List clean-up per request of Phys. [facility] Surgical History Surgical History History of surgery on right wrist excision of mass right wrist 07/14/2020 H/O cardiac radiofrequency ablation History of vasectomy Problem List clean-up per request of Phys. EHR Cmte Family History Family History Father Gene disease Father Mother Cancer Endometrial Cancer Grandparent Pancreatic cancer Social History Social History (Updated 02/19/25 @ 09:39 by Irene Garcia CMA) Smoking status: Never smoker Nicotine [...] DO DD/ 1557 Signed By: 05/06/25 1602 [facility]08-11-2025 NoteHNO ID: [id number] Author: BILL TUTTLE MD Service: ? Author Type: Physician Type: Progress Notes Filed: 04/04/2025 14:57 Note Text: [facility] [place] Sissy Zepeda Department of Cardiovascular Medicine SECTION [...] male here today for follow up from [place], [place]. Has h/o AF s/p ablation, HTN, DMITRY, tachycardia induced CMP, and CHF. On Eliquis, Nifedipine XL, Valsartan/HCTZ added on Doxazosin. Doxazocin increased to 2 mg but has been using only 1 mg daily. Continue to have BP spikes above 150s. Sotalol was discontinued. He followed before with a local operating cost clerk Dr Hooks. Since last visit denies chest [...] 9.4 CARDIOVASCULAR MEDICINE TESTING: CT pulmonary 03/22/22 (more content not included)...[facility]08-11-2025 History of Present illness Narrative* Ita Tuttle MD - 04/04/2025 2:31 PM EDT Images from the original note were not included. [facility] [place] Sissy Zepeda Department of Cardiovascular Medicine SECTION [...] male here today for follow up from [place], [place]. Has h/o AF s/p ablation, HTN, DMITRY, tachycardia induced CMP, and CHF. On Eliquis, Nifedipine XL, Valsartan/HCTZ added on Doxazosin. Doxazocin increased to 2 mg but has been using only 1 mg daily. Continue to have BP spikes above 150s. Sotalol was discontinued. He followed before with a local operating cost clerk Dr Hooks. Since last visit denies chest [...] rare (<1.0%). Isolated VEs were occasional (1.4%, 14712), VE Couplets were rare (<1.0%, 56), and [...] Bystolic - S/p DCC by his local operating cost clerk (Dr Castle) and subsequent ablation by EP (Dr Sena). - Negative outside stress EKG for ischemia 03/22/2020 - Update echo - May use one supplemental Mg OTC daily to try for leg cramps - Most recent renal fx reviewed This note was partially generated using [employer] voice recognition system, and there may be some incorrect words, spellings, and punctuation that were not noted in checking the note before saving. Someelements copied from my previous notes which have been updated as appropriate and reflect current medical decision making from today Bill Tuttle M.D., F.A.CCarrieC CONTACT INFORMATION: Shelbi Tuttle M.D., F.A.CCarrieC. Marking Room Supervisor Clinical licensed physical therapist [facility] of [facility] Staff Licensed Insurance Agent Timothy Hdz [facility] Mail Code [id number] [facility] [place] [address] CC: To use this Smartlink, specify the [...] medications for this visit. documented in this encounterWhite Hospital07-24-2025 Telephone encounter Note * Telephone Encounter - DOROTHEA Liang - 03/17/2025 1:21 PM EDT My Chart Message. [facility] CenterCochgbtcin79-73-8179 Miscellaneous Notes* Telephone Encounter - DOROTHEA Liang - 03/17/2025 1:21 PM EDT My Chart Message. documented in this encounterExcelsior Springs Medical CenterObnqymiltf87-34-3840 History of Present illness Narrative* DOROTHEA Liang [...] The patient is seeing a medical imaging director for this condition, treatment is deferred to that specialist. Correspondence from that specialist and any available testing were reviewed during today's visit. Arteriosclerotic vascular disease The patient is seeing a medical imaging director for this condition, treatment is deferred to [...] (HHS-HCC) The patient is seeing a medical imaging director for this condition, treatment is deferred to that specialist. Correspondence from that specialist and any available testing were reviewed during today's visit. Thoracic aortic ectasia The patient is seeing a medical imaging director for this condition, treatment is deferred to that specialist. Correspondence from that specialist and any available testing were reviewed during today's visit. History of colon polyps Will continue to monitor with routine screenings. PONV (postoperative nausea and vomiting) H/o, pt will need to inform anesthesia should he have any additional surgeries. IFG (impaired fasting glucose) - Hemoglobin A1c Will check U6npaqm upcoming fasting labs. Screening for malignant neoplasm of prostate - PSA Will check PSA with upcoming fasting labs. Follow up for Medicare Wellness Visit. documented in this encounterExcelsior Springs Medical [id number] Evaluation note* Diagnosis Onset Date Resolution Status Admit Date Contact dermatitis acuteJune 2024 9:18am [facility] Work Phone: 1(665) 872-276305-12-2025 Telephone encounter Note* Telephone Encounter - Fabiola [...] 04/01/2022 0.98 0.73 - 1.22 mg/dL Final [facility]25 Miscellaneous Notes* Telephone Encounter - Fabiola [...] - 1.22 mg/dL Final documented in this encounterWhite Hospital04-17-2025 History of Present illness Narrative* Eulalio Irby, DO - 12/09/2024 3:45 PM EDT Images from the original note were not included. @StellarisDATE@ [facility] lR is a 64 y.o. 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 Apply ice to the knee for [...] note was created using voice recognition through [employer] artificial intelligence. documented in this encounterExcelsior Springs Medical [id number] History of Present illness Narrative* JUS Caraballo [...] the original note were not included. @ENCDATE@ [facility] Rl is a 64 y.o. [...] applying ice to the affected area ni [facility] after work, which provided relief until the [...] PA/lateral/oblique, taken today and saved to the [facility]. Fracture distal phalanx middle finger well healed [...] hour before bedtime. He can continue taking [place] if needed, but not at the same [...] note was created using voice recognition through Vimbly. documented in this encounterExcelsior Springs Medical CenterLdggmbxojn21-87-2665 Telephone encounter Note* Telephone Encounter - Bria [...] 04/01/2022 0.98 0.73 - 1.22 mg/dL Final [facility]02-04-2025 Miscellaneous Notes* Telephone Encounter - Bria [...] - 1.22 mg/dL Final documented in this encounterWhite Hospital01-28-2025 Instructions* Patient Instructions* Tony Armstrong PA-C - 09/21/2024 4:57 PM EST Please schedule appt with Dr. Tuttle in 6 months documented in this encounterWhite Hospital01-28-2025 History of Present illness Narrative* Tony Armstrong PA-C - 09/21/2024 4:30 PM EST Images from the original note were not included. [facility] [place] [facility] Department of Cardiovascular Medicine SECTION [...] rare (<1.0%). Isolated VEs were occasional (1.4%, 94093), VE Couplets were rare (<1.0%, 56), and [...] months CONTACT INFORMATION: Tony Armstrong PA-C Cardiology [id number] [facility] [address] Dept: [phone] Dept documented in this encounterWhite Hospital01-28-2025 NoteHNO ID: [id number] Author: TONY ARMSTRONG PA-C Service: ? Author Type: Physician Marking Room Supervisor Type: Progress Notes Filed: 09/21/2024 17:03 Note Text: [facility] [place] [facility] Department of Cardiovascular Medicine SECTION [...] rare (<1.0%). Isolated VEs were occasional (1.4%, 14334), VE Couplets were rare (<1.0%, 56), and VE Triplets were rare (<1.0%, 1). Ventricular Bigeminy and Trigeminy were present. No symptoms reported. 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 Tuttle in 6 months CONTACT INFORMATION: DOROTHEA Mohan-C Cardiology [address] [facility] [address] Dept: [phone] [facility] History of Present illness Narrative* DOROTHEA [...] No follow-ups on file. documented in this encounterExcelsior Springs Medical CenterDavgjbsvpl95-59-4569 History of Present illness Narrative* Eulalio Irby, [...] note was created using voice recognition through Vimb[employer]. documented in this encounterExcelsior Springs Medical CenterRxbqwtawek44-63-3138 History of Present illness Narrative* Eulalio Irby DO - 07/27/2024 3:30 PM EST Images from the original note were not included. @ROSIE@ Darius Chan Valera is a 63 y.o. male who [...] He also mentions a recent fall in [facility], where he tripped on a sidewalk and landed on his elbow, shoulder, and knee. Following this incident, he noticed swelling in his hands, which has since improved. He went to the urgent care in [place] for evaluation the following day. Xrays of [...] note was created using voice recognition through Vimbly. documented in this encounterExcelsior Springs Medical CenterCjgzuiofls69-69-5499 Telephone encounter Note* Telephone Encounter - Alvarado, BriaCHATA retana - 06/30/2024 2:07 PM EST Received request [...] 04/01/2022 0.98 0.73 - 1.22 mg/dL [facility]24 Miscellaneous Notes* Telephone Encounter - Bria [...] - 1.22 mg/dL Final documented in this encounterWhite Hospital11-05-2024 Telephone encounter Note * Telephone Encounter - DOROTHEA Liang - 06/29/2024 4:06 PM EST My Chart message sent. [facility] CenterUsltgrnnbj50-39-4322 Miscellaneous Notes* Telephone Encounter - DOROTHEA Liang - 06/29/2024 4:06 PM EST My Chart message sent. documented in this encounterExcelsior Springs Medical CenterZfnexjeurl11-07-9757 Telephone encounter Note* Telephone Encounter - DOROTHEA Liang - 06/28/2024 10:41 AM EST Message sent through [employer] [facility] Springs Medical CenterAvezmgxmkq79-57-8924 Miscellaneous Notes* Telephone Encounter - DOROTHEA Liang - 06/28/2024 10:41 AM EST Message sent through [employer] * Telephone Encounter - Kayla Rose LPN - 06/25/2024 12:28 PM EDT Attempted to call patient multiple times and call will not go through. Xray order has been sent to [facility] so he can go get that done at his convenience and PT will contact him to schedule. * Telephone Encounter - DOROTHEA Liang - 06/25/2024 12:08 PM EDT Ok to send order for x-rays to [facility]. Please let pt know that x-rays have [...] he would like to have done at [facility] if you do order. documented in this encounterExcelsior Springs Medical CenterJwnttnkebv03-98-4625 Telephone encounter Note* Telephone Encounter - Kayla Rose LPN - 06/25/2024 12:28 PM EDT Attempted to call patient multiple times and call will not go through. Xray order has been sent to [facility] so he can go get that done at his convenience and PT will contact him to schedule. [facility] Springs Medical CenterNdxkpzhjaz92-79-6142 Telephone encounter Note* Telephone Encounter - DOROTHEA Liang - 06/25/2024 12:08 PM EDT Ok to send order for x-rays to [facility]. Please let pt know that x-rays have been ordered and a PT referral was sent for him also. [facility] Springs Medical CenterCohbybotmm09-64-8843 Telephone encounter Note* Telephone Encounter - Kayla Rose LPN - 06/25/2024 11:51 AM EDT Pt called stating he saw Sedrick Lyons on 06/10 and was diagnosed with stain of thoracic spine and muscle spasm, rx'd Prednisone, Tizanidine. States it is not really helping and was ?'ing if you could order either an x-ray or PT. X-ray he would like to have done at [facility] if you do order. [facility] Springs Medical CenterYrcwwadkff83-59-5721 History of Present illness Narrative* Eulalio Irby DO - 06/15/2024 3:15 PM EDT Images from the original note were not included. @ENCDATE@ Darius Chan Rl is a 63 y.o. [...] was previously seen for his knee in 2019 and earlier this year in December. He [...] MRI of the right knee performed at [facility] on 03/13/2019; Tear in the body [...] note was created using voice recognition through Vimbly. documented in this encounterExcelsior Springs Medical CenterIudgrfxgyg81-13-7339 History of Present illness Narrative* Sedrick Lyons [...] No follow-ups on file. documented in this encounterExcelsior Springs Medical CenterVrxkuthjma26-94-0828 Instructions* Patient Instructions* Sedrick Lyons NP - 06/10/2024 4:30 PM EDT Added prednisone and tizanidine. documented in this encounterExcelsior Springs Medical CenterMuexvtowwv55-89-4927 History of Present illness Narrative* Grace Haque [...] colonoscopy in 10 years. documented in this encounterExcelsior Springs Medical CenterJjjtjgxsyi72-69-0737 History of Present illness Narrative* Ita Tuttle MD - 01/30/2024 2:08 PM EDT Images from the original note were not included. [facility] [place] [facility] Department of Cardiovascular Medicine SECTION OF REGIONAL CARDIOLOGY OUTPATIENT VISIT DATE January 30, 2024 OUTPATIENT VISIT TYPE ESTABLISHED HISTORY OF PRESENT ILLNESS: Darius Valera is a (an) 63 year old year old male who is here today for follow- up. He had elevated WBCs and was seen by outside software engineer mobile and was told might have CLL Last [...] male here today for follow up from [place]. Has h/o AF s/p ablation, HTN, DMITRY, tachycardia induced CMP, and CHF. On Eliquis, Nifedipine XL, Valsartan/HCTZ added on Doxazosin. Doxazocin increased to 2 mg but has been using only 1 mg daily. Continue to have BP spikes above 150s. Sotalol was discontinued. He followed before with a local operating cost clerk Dr Hooks. Since last visit denies chest [...] rare (<1.0%). Isolated VEs were occasional (1.4%, 67272), VE Couplets were rare (<1.0%, 56), and [...] needed - S/p DCC by his local operating cost clerk (Dr Castle) and subsequent ablation by EP (Dr Sena). - Negative outside stress EKG for ischemia 03/22/2020 - Refill authorized - Most recent renal fx reviewed This note was partially generated using Phi [employer] voice recognition system, and there may be some incorrect words, spellings, and punctuation that were not noted in checking the note before saving. Someelements copied from my previous notes which have been updated as appropriate and reflect current medical decision making from today Bill Tuttle M.D., F.Jojo.CCarrieC CONTACT INFORMATION: Shelbi Tuttle M.D., Miguel. Marking Room Supervisor Clinical licensed physical therapist [facility] Staff Licensed Insurance Agent Timothy Diaz [facility] Mail Code AVW2-1 [id number] [facility] [place] [address] CC: To use this Smartlink, specify the provider ID whose address you want to display, e.g., .PROVADDR[1 (where 1 is the provider ID). documented in this encounterWhite Hospital05-08-2024 Telephone encounter Note * Telephone Encounter [...] 04/01/2022 0.98 0.73 - 1.22 mg/dL Final [facility]05-08-2024 Miscellaneous Notes* Telephone Encounter - Fabiola [...] - 1.22 mg/dL Final documented in this encounterWhite Hospital01-22-2024 Miscellaneous Notes* Telephone Encounter - Uyen Martinez RN - 09/15/2023 10:37 AM EST Pt sent [email or web address] message regarding below. * Telephone Encounter - [...] Thanks Shelbi Tuttle MD documented in this encounterWhite Hospital12-07-2023 History of Present illness Narrative* Ita Tuttle MD - 07/31/2023 12:48 PM EST Images from the original note were not included. [facility] [place] [facility] Department of Cardiovascular Medicine SECTION [...] male here today for follow up from [place]. Has h/o AF s/p ablation, HTN, DMITRY, tachycardia induced CMP, and CHF. On Eliquis, Nifedipine XL, Valsartan/HCTZ added on Doxazosin. Doxazocin increased to 2 mg but has been using only 1 mg daily. Continue to have BP spikes above 150s. Sotalol was discontinued. He followed before with a local operating cost clerk Dr Hooks. Since last visit denies chest [...] size - S/p DCC by his local operating cost clerk (Dr Castle) and subsequent ablation by EP (Dr Sena). - Negative outside stress EKG for ischemia 03/22/2020 - Advised to establish with a PCP at [facility] This note was partially generated using Phi [employer]ics voice recognition system, and there may be some incorrect words, spellings, and punctuation that were not noted in checking the note before saving. Someelements copied from my previous notes which have been updated as appropriate and reflect current medical decision making from today Bill Tuttle M.D., F.BernardC CONTACT INFORMATION: Shelbi Tuttle M.D., PierreC. Marking Room Supervisor Clinical licensed physical therapist [facility] of [facility] Staff Licensed Insurance Agent Timothy Hdz [facility] Mail Code AVW2-1 [id number] [facility] [place] [address] CC: To use this Smartlink, specify the provider ID whose address you want to display, e.g., .PROVADDR[1 (where 1 is the provider ID). documented in this encounterWhite Hospital08-08-2023 Miscellaneous Notes* Telephone Encounter - Griselda Jones APRN.[facility] - 04/01/2023 2:52 PM EDT The following approved medication requests have been transmitted electronically. Requested Prescriptions Signed Prescriptions Disp Refills Valsartan-hydroCHLOROthiazide 320-25 mg per tablet 90 tablet 3 Sig: TAKE ONE TABLET BY MOUTH DAILY Authorizing Provider: ITA TUTTLE Ordering User: GRISELDA JONES APRN.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 * Telephone Encounter - Virgie Pretty MA [...] - 1.22 mg/dL Final documented in this encounterWhite Hospital05-03-2023 History of Present illness Narrative* Ita Tuttle MD - 12/25/2022 2:00 PM EDT Images from the original note were not included. [facility] [place] [facility] Department of Cardiovascular Medicine SECTION OF REGIONAL CARDIOLOGY OUTPATIENT VISIT DATE December 25, 2022 OUTPATIENT VISIT TYPE Established HISTORY OF PRESENT ILLNESS: Darius Valera is a 62 year old male here today for follow up from [place]. Has h/o AF s/p ablation, HTN, DMITRY, tachycardia induced CMP, and CHF. On Eliquis, Nifedipine XL, Valsartan/HCTZ added on Doxazosin. Doxazocin increased to 2 mg but has been using only 1 mg daily. Continue to have BP spikes above 150s. Sotalol was discontinued. He followed before with a local operating cost clerk Dr Hooks. Since last visit denies chest [...] daily - S/p DCC by his local operating cost clerk (Dr Castle) and subsequent ablation by EP [...] needed. This note was partially generated using Phi [employer] voice recognition system, and there may be some incorrect words, spellings, and punctuation that were not noted in checking the note before saving. Bill Tuttle M.D., F.A.C.C CONTACT INFORMATION: Bill Tuttle M.D., F.A.C.C. Staff Licensed Insurance Agent Timothy Diaz [facility] Mail Code AVW2-[id number] [place] [address] CC: To use this Smartlink, specify the provider ID whose address you want to display, e.g., .PROVADDR[1 (where 1 is the provider ID). documented in this encounterWhite Hospital05-02-2023 NotePROCEDURE: XR FOOT RT MIN 3 [...] Electronically authenticated by: BRIA PATEL Date: 2022-12-24 12:07[facility]05-02-2023 NotePROCEDURE: XR FOOT RT MIN [...] Electronically authenticated by: BRIA PATEL Date: 2022-12-24 12:07[facility]03-08-2023 Miscellaneous Notes* Telephone Encounter - Lila Alvarenga - 10/30/2022 3:09 PM EST Darius rescheduled for [facility] [place] in March with Dr. Sena. 10/30/2022 * [...] only Please advise spouse documented in this encounterWhite Hospital02-23-2023 History of Present illness Narrative* Ita Tuttle MD - 10/17/2022 3:30 PM EST Images from the original note were not included. [facility] [place] [facility] Department of Cardiovascular Medicine SECTION OF REGIONAL CARDIOLOGY OUTPATIENT VISIT DATE October 17, 2022 OUTPATIENT VISIT TYPE Established HISTORY OF PRESENT ILLNESS: Darius Valera is a 62 year old male here today for follow up from [place]. Has h/o AF s/p ablation, HTN, DMITRY, tachycardia induced CMP, and CHF. On Eliquis, Nifedipine XL, Valsartan/HCTZ added on Doxazosin. Sotalol was discontinued. He followedbefore with a local operating cost clerk Dr Hooks. Since last visit denies chest [...] MG - S/p DCC by his local operating cost clerk (Dr Castle) and subsequent ablation by EP [...] needed. This note was partially generated using Phi [employer] voice recognition system, and there may be some incorrect words, spellings, and punctuation that were not noted in checking the note before saving. Bill Tuttle M.D., F.A.C.C CONTACT INFORMATION: Bill Tuttle M.D., F.A.C.C. Staff Licensed Insurance Agent Timothy Diaz [facility] Mail Code AVW2-1 [id number] [facility] [place] [address] CC: To use this Smartlink, specify the provider ID whose address you want to display, e.g., .PROVADDR[1 (where 1 is the provider ID). documented in this encounterWhite Hospital02-23-2023 Miscellaneous Notes* Telephone Encounter - Manisha Pinzon APRN.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 - 10/17/2022 2:45 PM EST The following approved medication requests have been transmitted electronically. Requested Prescriptions Signed Prescriptions Disp Refills NIFEdipine XL (ADALAT CC) 30 mg 24 hr tablet 14 tablet 0 Sig: Take 1 tablet by mouth once daily. Authorizing Provider: ITA TUTTLE Ordering User: MANISHA PINZON APRN.CNP * Telephone Encounter - Ama Busby - 10/16/2022 4:19 PM EST Local [facility] 10 day supply Patient has not received it through mail yet, Today was his last pill, is it possible to do a shortterm refill so he does not miss a dose. Has an appointment tomorrow with us but is requesting to have filled tonight. documented in this encounterWhite Hospital02-20-2023 Miscellaneous Notes* Telephone Encounter - Marquez [...] - 1.4 mg/dL Final documented in this encounterWhite Hospital02-13-2023 Miscellaneous Notes* Telephone Encounter - Virgie [...] - 1.4 mg/dL Final documented in this encounterWhite Hospital01-20-2023 History of Present illness Narrative* Ita Tuttle MD - 09/13/2022 3:30 PM EST Images from the original note were not included. [facility] [place] [facility]ep[facility] Department of Cardiovascular Medicine SECTION OF REGIONAL CARDIOLOGY OUTPATIENT VISIT DATE September 13, 2022 OUTPATIENT VISIT TYPE Established HISTORY OF PRESENT ILLNESS: Darius Valera is a 61 year old male here today for follow up from [place], [place]. Has h/o AF s/p ablation, HTN, DMITRY, tachycardia induced CMP, and CHF. On Eliquis, Nifedipine XL, Valsartan/HCTZ. Sotalol was discontinued. He followed before with a local operating cost clerk Dr Hooks. Since last visit denies chest [...] or gallop. No parasternal heave or thrill. Hector not displaced. LUNGS: clear to auscultation, no [...] daily - S/p DCC by his local operating cost clerk (Dr Castle) and subsequent ablation by EP [...] needed. This note was partially generated using Phi [employer] voice recognition system, and there may be some incorrect words, spellings, and punctuation that were not noted in checking the note before saving. Bill Tuttle M.D., Miguel CONTACT INFORMATION: Bill Tuttle M.D., Miguel. Staff Licensed Insurance Agent Timothy SarabjitCarrie [facility] Mail Code AVW2-1 [id number] [facility] [address] [place] [address] CC: To use this Smartlink, specify the provider ID whose address you want to display, e.g., .PROVADDR[1 (where 1 is the provider ID). documented in this encounterWhite Hospital12-09-2022 Miscellaneous Notes* Telephone Encounter - Shani [...] a day. Thanks TD documented in this encounterCleveland [id number] Miscellaneous Notes* Telephone Encounter - Marissa Guzman RN - 08/02/2022 8:50 AM EST Called pt. No answer. Left detailed message per below. * Telephone Encounter - Marsisa Guzman RN - 08/02/2022 8:49 AM EST [...] a day. Thanks TD documented in this encounterWhite Hospital12-08-2022 History of Present illness Narrative* Hiren [...] BP readings, which have frequently been in [id number]. ACTIVE PROBLEM LIST Atrial Fibrillation, Persistent (Hcc) [...] follow-up with me in about 6 m [facility]. If he has no further recurrences of A. fib after that, he can follow-up with me as needed. Hiren Sena MD CC - Bill Tuttle MD This clinical note has been produced using speech recognition software and may contain errors related to that system including grammar, punctuation, spelling, gender and words and phrases that may beinappropriate. documented in this encounterWhite Hospital09-16-2022 History of Present illness Narrative* Ita Tuttle MD - 05/10/2022 3:03 PM EDT Images from the original note were not included. [facility] [place] [facility] Department of Cardiovascular Medicine SECTION OF REGIONAL CARDIOLOGY OUTPATIENT VISIT DATE May 10, 2022 OUTPATIENT VISIT TYPE Established HISTORY OF PRESENT ILLNESS: Darius Valera is a 61 year old male here today for follow up from [place]. Has h/o AF s/p ablation, HTN, DMITRY, tachycardia induced CMP, and CHF. On Eliquis, Nifedipine XL, Valsartan/HCTZ, Lasix, Potassium chloride. Sotalol was discontinued. He followed before with a local operating cost clerk Dr Hooks. He reported that he was [...] or gallop. No parasternal heave or thrill. Hector not displaced. LUNGS: clear to auscultation, no [...] Nifedipine - S/p DCC by his local operating cost clerk (Dr Castle) and subsequent ablation by EP [...] needed. This note was partially generated using [employer] voice recognition system, and there may be some incorrect words, spellings, and punctuation that were not noted in checking the note before saving. Bill Tuttle M.D., F.A.C.C CONTACT INFORMATION: Bill Tuttle M.D., F.A.C.C. Staff Licensed Insurance Agent Timothy Diaz [facility] Mail Code AVW2-1 [id number] [facility] [place] [address] CC: To use this Smartlink, specify the provider ID whose address you want to display, e.g., .PROVADDR[1 (where 1 is the provider ID). documented in this encounterWhite Hospital08-19-2022 History of Present illness Narrative* Bridget Hudson - 04/12/2022 2:39 PM EDT Waiting for LALO for program status/follow up documented in this encounterWhite Hospital08-04-2022 History of Present illness Narrative* Ita Tuttle MD - 03/28/2022 3:00 PM EDT Images from the original note were not included. [facility] [place] [facility]ep[facility] Department of Cardiovascular Medicine SECTION OF REGIONAL CARDIOLOGY OUTPATIENT VISIT DATE March 28, 2022 OUTPATIENT VISIT TYPE Established HISTORY OF PRESENT ILLNESS: Darius Valera is a 61 year old male here today for follow up from [place], [place]. Has h/o AF, HTN, DMITRY, tachycardia induced CMP, and CHF. On Eliquis, Nifedipine XL, Valsartan/HCTZ, Lasix, Potassium chloride, and Sotalol. He followed before with a local operating cost clerk Dr Hooks. He reported that he was [...] or gallop. No parasternal heave or thrill. Hector not displaced. LUNGS: clear to auscultation, no [...] Nifedipine - S/p DCC by his local operating cost clerk (Dr Castle) and subsequent ablation by EP [...] lipids This note was partially generated using [employer] voice recognition system, and there may be some incorrect words, spellings, and punctuation that were not noted in checking the note before saving. Bill Tuttle M.D., F.Jojo.CCarrieC CONTACT INFORMATION: Bill Tuttle M.D., Miguel. Staff Licensed Insurance Agent Timothy Diaz [facility] Mail Code [id number] [facility] [place] [address] CC: To use this Smartlink, specify the provider ID whose address you want to display, e.g., .PROVADDR[1 (where 1 is the provider ID). documented in this encounterWhite Hospital08-02-2022 History of Present illness Narrative* Bijal Jackson PA-C - 03/26/2022 1:40 PM EDT Incidental Lung Nodule Enrollment Call attempt: 1st Attempt Call status: Complete Enrolled in Lung Nodule program: Yes Lung Nodule outreach: Enrolled Lung Nodule Program Location: [place] Patient has already discussed lung nodule with his operating cost clerk, who placed a consult to lung nodule clinic. He is scheduled to see Lilo Moody later this month. documented in this encounterWhite Hospital07-29-2022 History of Present illness Narrative* Barbara Mccloud APRN.SADI - 03/22/2022 9:59 AM EDT Images from the original note were not included. [facility] [place] Sissy Zepeda Department of Cardiovascular Medicine SECTION [...] INFORMATION: Barbara Mccloud APRN.CNP documented in this encounterWhite Hospital07-29-2022 History of Present illness Narrative* Radha Hopkins, (R) - 03/22/2022 9:15 AM EDT Radiology Service [...] 2022 TIME: 8:50 AM documented in this encounterWhite Hospital05-19-2022 Miscellaneous Notes* Telephone Encounter - Britney [...] mouth twice daily. BENEDICT: No Britney Gamboa APRN.DIAN AVITIA documented in this encounterWhite Hospital04-29-2022 Miscellaneous Notes* Telephone Encounter - Yara Rubin RN - 12/21/2021 4:03 PM EDT Closing encounter see encounter note as below: RX INSTRUCTIONS: Patient aware RX will be sent to pharmacy. No need to notify patient. Alicia Chavarria documented in this encounterWhite Hospital04-29-2022 Miscellaneous Notes* Telephone Encounter - Ran [...] pharmacy. No need to notify patient. Alicia Cahvarria documented in this encounterWhite Hospital04-28-2022 Miscellaneous Notes* Telephone Encounter - Uyen Martinez RN - 12/20/2021 3:45 PM EDT Pt in for office visit with Dr. Tuttle today. Requesting halfway refills on all meds from mail away pharmacy, including sotalol. Pt had ablation on 12/03/21. Please sign refill of sotalol if appropriate. Thanks documented in this encounterWhite Hospital04-14-2022 Miscellaneous Notes* Telephone Encounter - Uyen Allison RN - 12/06/2021 4:34 PM EDT Completed form given to admin to fax and upload. Uyen Allison RN * Telephone Encounter - Tayla Burrell - 12/06/2021 1:11 PM EDT Received [place] paper work today and left on nurses desk to complete. I also uploaded documents to [facility] * Telephone Encounter - Elida Abarca - 12/06/2021 10:49 AM EDT Please contact patient regarding MyChart message. documented in this encounterWhite Hospital04-13-2022 Miscellaneous Notes* Telephone Encounter - Barbara [...] he has no improvement by Friday, to [facility] ED for evaluation. Patient verbalized understanding. I asked him to call the office with any updates. Barbara Mccloud APRN.SADI documented in this encounterWhite Hospital04-13-2022 Miscellaneous Notes* Telephone Encounter - Cammy Fay RN - 12/05/2021 3:55 PM EDT [facility] Contact Center Inbound Phone Encounter DATE of SERVICE: 12/05/2021 TIME of SERVICE: 3:55 PM Status: Non-urgent, needs attention Service/Provider: EP/JAMIE Garvey M.D. Reason for call: Pain Contact information: [phone] [facility] Comments: Pt states that he is having pain in his bilat upper chest, I can not even lay down . He is taking tylenol and it is not working. He wants to know if he can take something else? Please callto discuss. Cammy Fay RN Date of Resolution: 12/05/2021 Time of Resolution 3:55 PM documented in this encounterWhite Hospital04-13-2022 Miscellaneous Notes* Telephone Encounter - Elida Abarca - 12/05/2021 3:41 PM EDT Please contact patient regarding MyChart message. * Telephone Encounter - DARIO Jose - 12/05/2021 1:49 PM EDT Patients calling. Patients workplace did not receive [facility] paperwork & patient is needing a return to work date. Please advise [phone] documented in this encounterWhite Hospital04-12-2022 History of Present illness Narrative* Tammy Mendoza - 12/04/2021 11:12 AM EDT TRANSMITTER INSTRUCTIONS Patient Name: Darius Val[facility] Number: [id number] Fresh battery inserted in monitor Baseline recording not completed Patient instructed 1.) Scheduled and Symptomatic recording instructions 2.) Usage of event button and/or transmission instructions 3.) Maintenance and care of monitor 4.) Landline availability 5.) Return unit at the end of prescribed order 6.) Call with problems [phone] OR [phone] Patient expresses good verbal understanding of instructions Tammy Mendoza documented in this encounterWhite Hospital04-08-2022 History of Present illness Narrative* Griselda [...] discussed with Physician, nurse practitioner or Physician college sports assistant upon discharge Instructions for transmitting EKG to Monitoring Center 3 month follow up instructions Contact number for information and questions Patient Evaluation: Verbalizes understanding Follow Up Plan: Follow up as directed by MD. Supplemental Material Given: Written Material Patient education regarding radiation exposure. Instructed By Griselda Felder RN, RN. In Department of CARDIOLOGY. documented in this encounterCleveland ClinicEvaluation note* Diagnosis AF (paroxysmal atrial fibrillation) (HCC)- Primary Atrial fibrillation documented in this encounter [facility] note* Diagnosis Persistent atrial fibrillation (HCC) Atrial fibrillation documented in this encounter [facility] note* Diagnosis Atrial fibrillation, persistent (HCC)- Primary Atrial fibrillation documented in this encounter [facility] note* Diagnosis Atrial fibrillation, persistent (HCC) Atrial fibrillation Benign essential HTN Essential hypertension, benign documented in this encounter [facility] note* Diagnosis Atrial fibrillation, persistent (HCC) Atrial fibrillation Benign essential HTN Essential hypertension, benign Hypertension, unspecified type documented in this encounter [facility] note* Diagnosis Atrial fibrillation, persistent (HCC)- Primary Atrial fibrillation Lung nodule Solitary pulmonary nodule DMITRY (obstructive sleep apnea) Obstructive sleep apnea (adult) (pediatric) documented in this encounter [facility] note* Diagnosis Persistent atrial fibrillation (HCC) Atrial fibrillation documented in this encounter [facility] note* Diagnosis Lung nodule- Primary Solitary pulmonary nodule documented in this encounter [facility] note* Diagnosis Atherosclerosis- Primary Generalized and unspecified atherosclerosis Ascending aorta dilatation (HCC) Thoracic aortic ectasia Tachycardia induced cardiomyopathy (HCC) Tachycardia, unspecified documented in this encounter [facility] note* Diagnosis Tachycardia induced cardiomyopathy (HCC)- Primary Tachycardia, unspecified documented in this encounter [facility] note* Diagnosis Atrial fibrillation, persistent (HCC)- Primary Atrial fibrillation Hypertension, unspecified type DMITRY (obstructive sleep apnea) Obstructive sleep apnea (adult) (pediatric) Benign essential HTN Essential hypertension, benign S/P ablation of atrial fibrillation Other postprocedural status Encounter for current long-term use of anticoagulants Long-term (current) use of anticoagulants documented in this encounter [facility] note* Diagnosis Hypertension, unspecified type- Primary documented in this encounter [facility] note* Diagnosis Hypertension, unspecified type documented in this encounter [facility] note* Diagnosis Medication refill [Z76.0 (ICD-10-CM)]- Primary Issue of repeat prescriptions Hypertension, unspecified type documented in this encounter [facility] note* Diagnosis Hypertension, unspecified type- Primary documented in this encounter [facility] note* Diagnosis Atrial fibrillation, persistent (HCC) Atrial fibrillation Benign essential HTN Essential hypertension, benign [facility] Diagnosis Hypertension, unspecified type- Primary Aortic root dilatation (HCC) Thoracic aortic ectasia documented in this encounter [facility]* Diagnosis Hypertension, unspecified type documented in this encounter [facility] noteNo assessment information availableEast [facility] Work Phone: Evaluation note* Diagnosis Paroxysmal atrial fibrillation (HCC)- Primary Atrial fibrillation Atrial fibrillation, persistent (HCC) Atrial fibrillation Benign essential HTN Essential hypertension, benign Hypertension, unspecified type Prescription refill Issue of repeat prescriptions Tachycardia induced cardiomyopathy (HCC) Tachycardia, unspecified Aortic root dilatation (HCC) Thoracic aortic ectasia documented in this encounter [facility]* Diagnosis Onset Date Resolution Status Lymphocytosis acute [facility] Work Phone: Evaluation note* Diagnosis Screening for malignant neoplasm of colon- Primary documented in this encounter [facility]* Diagnosis Tear of medial meniscus of right knee, current, unspecified tear type, subsequent encounter- Primary [facility] Diagnosis Strain of thoracic back region- Primary Muscle spasm Spasm of muscle [facility] Diagnosis Strain of thoracic back region- Primary Muscle spasm Spasm of muscle [facility]* Diagnosis Pre-op testing Unspecified pre-operative examination [facility] Diagnosis History of colon polyps- Primary Screening for malignant neoplasm of colon documented in this encounter [facility]* Diagnosis S/P right knee arthroscopy- Primary [facility]* Diagnosis Acute non-recurrent maxillary sinusitis- Primary documented in this encounter [facility] Healthcare[facility]* Diagnosis Primary hypertension- Primary Unspecified essential hypertension PAF (paroxysmal atrial fibrillation) (HCC) Atrial fibrillation Coronary artery calcification Coronary atherosclerosis of unspecified type of vessel, [place] or graft documented in this encounter [facility]* Diagnosis Prescription refill- Primary Issue of repeat prescriptions documented [facility] this [facility]* Diagnosis Left hand pain- Primary Pain in soft tissues of limb S/P right knee arthroscopy Right knee pain, unspecified chronicity documented in this encounter [facility] Healthcare[facility] note* Diagnosis S/P right knee arthroscopy- Primary documented in this encounter [facility] note* Diagnosis Hypertension, unspecified type documented in this encounter [facility] HospitalEvaluation [facility]* Diagnosis Wellness examination- Primary Muscle cramping [...] neoplasm of prostate documented in this encounter [facility] Healthcare[facility] note* Diagnosis PAF (paroxysmal atrial fibrillation) (HCC)- Primary Atrial fibrillation Atrial fibrillation, persistent (HCC) Atrial fibrillation Benign essential HTN Essential hypertension, benign Hypertension, unspecified type Tachycardia induced cardiomyopathy (HCC) Tachycardia, unspecified documented in this encounter White HospitalHistory of Present illness Narrative* Here for [...] 2. I advised him to buy a [employer] monitor to allow us for better assessing the etiology of his palpitation * 3. Risk, benefit and alternative anticoagulation and sotalol reviewed with patient at length he understood and agreed * 4. Arrangements for cardioversion will be made [facility] Work Phone: History of Present illness Narrative* [...] 4. Arrangements for cardioversion will be made [facility] Work Phone: History of Present illness Narrative* [...] 4. Arrangements for cardioversion will be made [facility] Work Phone: History of Present illness Narrative* [...] his primary care provider. documented in this encounterNONorthwest Medical CenterReason for referral (narrative)* Outpatient Procedure (Routine) - Pending ReviewSpecialtyDiagnoses / Procedures Referred By ContactReferred To ContactUNIVERSITY HOS[facility]ITALS [facility] Diagnoses Persistent atrial fibrillation (HCC) Procedures ECG COMPLETE ECG ROUTINE ECG W/LEAST 12 LDS W/I&R 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 APRN.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 [address] [place] [address] [facility] [place] [address] [place] [address] Referral IDStatusReasonStart DateExpiration DateVisits RequestedVisits [id number] Review Auto-Generated Referral / * MRI/CT (Routine) - Pending ReviewSpecialtyDiagnoses / ProceduresReferred By ContactReferred To [facility] Diagnoses Persistent atrial fibrillation (HCC) Procedures CT PULMONARY VEIN W IVCON CT HEART CONTRAST EVAL CARDIAC STRUCTURE&MORPH 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 APRN.CNP [address] [facility] [address] [address] [place] [id number] Imaging Referral IDStatusReasonStart DateExpiration DateVisits RequestedVisits [id number] Review Auto-Generated Referral * Outpatient Procedure (Routine) - Pending ReviewSpecialtyDiagnoses / Procedures Referred By ContactReferred To [facility] V[facility]ULAR [place] Diagnoses Persistent atrial fibrillation (HCC) Procedures ECHO ECHO TTHRC R-T 2D W/WOM-MODE COMPL SPEC&COLR D 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 APRN.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 [address] [employer] [place] [phone] [facility] [place] [address] Referral IDStausReasonStchester DateExpiration DateVisits RequestedVisits [id number] Review Auto-Generated Referral [facility] for referral (narrative)* Outpatient Procedure (Routine) - ClosedSpecialtyDiagnoses / ProceduresReferred By ContactReferred To [facility] VASCULAR [place] Diagnoses Atrial fibrillation, persistent (HCC) Procedures ECG COMPLETE ECG ROUTINE ECG W/LEAST 12 LDS W/I&R Hiren Sena MD [address] [place] [address] [facility] [place] [facility] [place] [phone] Referral IDStatusReasonStart DateExpiration DateVisits RequestedVisits [id number] Auto-Generated Referral [facility] for referral (narrative)No reason for referral information availableEast [facility] Regional Hospital Work Phone: Summary Purpose Family History Unknown Family Member Name Dates Details Family [...] Age at Onset Recorded Date/T nalini father [place]'s disease Unknown fatherDeceasedUnknownNot SpecifiedDeceasedUnknownMalignant neoplasmUnknown grandparentMalignant neoplasm of pancreasUnknown Relationship Condition Age at Onset Recorded Date/T nalini father [place]'s disease Unknown fatherDeceasedUnknownmotherDeceasedUnknownMalignant neoplasmUnknowngrandparent Malignant neoplasm of pancreasUnknown Advance Directives TypeDate RecordedPatient RepresentativeExplanationAdvance Directive(s)10/18/2021 4:33 PMTypeDate RecordedPatient RepresentativeExplanationAdvance Directive(s) 10/18/2021 4:33 PM Advance Directive Response [...] Dr. Tera Davison MD Reason for Referral SpecialtyDiagnoses / ProceduresReferred By ContactReferred To ContactPulmonary Disease Diagnoses Lung nodule Procedures CONSULT TO LUNG NODULE CLINIC OFFICE/OUTPATIENT [facility] 60-74 MINUTES Barbara Mccloud, MERLY.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 [address] [place] [address] Referral IDStatusReasonStart DateExpiration DateVisits RequestedVisits [id number] Review PCP Requested Referral /[id number] / ProceduresReferred By ContactReferred To ContactCT IMAGING Diagnoses Persistent atrial fibrillation (HCC) Procedures CT PULMONARY VEIN W IVCON CT HEART CONTRAST EVAL CARDIAC STRUCTURE&MORPH 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, MERLY.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 [address] [place] [address] Ct Imaging Referral IDStatusReasonStart DateExpiration DateVisits RequestedVisits [id number] Auto-Generated Referral Chief Complaint and Reason for Visit Chief Complaint lymphocytosis NEW - Lymphocytosis Chief Complaint lymphocytosis Follow UpReason for VisitLymphocytosis Chief Complaint Admit Date lymphocytosis November 12, [...] 132024 9:24am CLL (chronic lymphocytic leukemia) Septe mber 2024 9:24am Additional Source Comments (unrecognized sect ion and content) No Status Records FoundNo Status Records FoundNo Status Records FoundNo Status Records FoundNo Status Records FoundNo Status Records FoundNo Status Records FoundNo Status Records FoundNo Status Records FoundNo Status Records FoundNo Status Records Found INFORMATION SOURCE (unrecogn ized section and content) DATE CREATED AUTHOR 05/19/2020 [facility] DATE CREATED AUTHOR AUTHOR'S ORGANIZ ATION 06/27/2021 [facility] DATE CREATED AUTHOR AUTHOR'S ORGANIZ ATION 08/30/2021 [facility] DATE CREATED AUTHOR AUTHOR'S ORGANIZ ATION 10/18/2022 [facility] DATE CREATED AUTHOR AUTHOR'S ORGANIZ ATION 01/31/2023 [facility] DATE CREATED AUTHOR AUTHOR'S ORGANIZ ATION 04/11/2023 [facility] DATE CREATED AUTHOR AUTHOR'S ORGANIZ ATION 01/18/2024 [facility] DATE CREATED AUTHOR AUTHOR'S ORGANIZ ATION 03/05/2025 [facility] DATE CREATED AUTHOR AUTHOR'S ORGANIZ ATION 03/20/2025 [facility] DATE CREATED AUTHOR AUTHOR'S ORGANIZ ATION 05/30/2025 [facility] DATE CREATED AUTHOR AUTHOR'S ORGANIZ ATION 06/14/2025 [facility] Source Comments (unrecognize d section and content) In the event this informatio n is protected by the Federal Confidentiality of Alcohol and Drug Abuse Patient Records regulations: The Federal rules restrict any use of the information to criminally investigate or prosecute any alcohol or drug abuse patient.White HospitalIn the event this information is protected by the Federal Confidentiality of Alcohol and Drug Abuse Patient Records regulations: The Federal rules restrict any use of the information to criminally investigate or prosecute any alcohol or drug abuse patient.White HospitalIn the event this information is protected by the Federal Confidentiality of Alcohol and Drug Abuse Patient Records regulations: The Federal rules restrict any use of the information to criminally investigate or prosecute any alcohol or drug abuse patient.White HospitalIn the event this information is protected by the Federal Confidentiality of Alcohol and Drug Abuse Patient Records regulations: The Federal rules restrict any use of the information to criminally investigate or prosecute any alcohol or drug abuse patient.White HospitalIn the event this information is protected by the Federal Confidentiality of Alcohol and Drug Abuse Patient Records regulations: The Federal rules restrict any use of the information to criminally investigate or prosecute any alcohol or drug abuse patient.White HospitalIn the event this information is protected by the Federal Confidentiality of Alcohol and Drug Abuse Patient Records regulations: The Federal rules restrict any use of the information to criminally investigate or prosecute any alcohol or drug abuse patient.White HospitalIn the event this information is protected by the Federal Confidentiality of Alcohol and Drug Abuse Patient Records regulations: The Federal rules restrict any use of the information to criminally investigate or prosecute any alcohol or drug abuse patient.White HospitalIn the event this information is protected by the Federal Confidentiality of Alcohol and Drug Abuse Patient Records regulations: The Federal rules restrict any use of the information to criminally investigate or prosecute any alcohol or drug abuse patient.White HospitalIn the event this information is protected by the Federal Confidentiality of Alcohol and Drug Abuse Patient Records regulations: The Federal rules restrict any use of the information to criminally investigate or prosecute any alcohol or drug abuse patient.White HospitalIn the event this information is protected by the Federal Confidentiality of Alcohol and Drug Abuse Patient Records regulations: The Federal rules restrict any use of the information to criminally investigate or prosecute any alcohol or drug abuse patient.White HospitalIn the event this information is protected by the Federal Confidentiality of Alcohol and Drug Abuse Patient Records regulations: The Federal rules restrict any use of the information to criminally investigate or prosecute any alcohol or drug abuse patient.White HospitalIn the event this information is protected by the Federal Confidentiality of Alcohol and Drug Abuse Patient Records regulations: The Federal rules restrict any use of the information to criminally investigate or prosecute any alcohol or drug abuse patient.White HospitalIn the event this information is protected by the Federal Confidentiality of Alcohol and Drug Abuse Patient Records regulations: The Federal rules restrict any use of the information to criminally investigate or prosecute any alcohol or drug abuse patient.White HospitalIn the event this information is protected by the Federal Confidentiality of Alcohol and Drug Abuse Patient Records regulations: The Federal rules restrict any use of the information to criminally investigate or prosecute any alcohol or drug abuse patient.White HospitalIn the event this information is protected by the Federal Confidentiality of Alcohol and Drug Abuse Patient Records regulations: The Federal rules restrict any use of the information to criminally investigate or prosecute any alcohol or drug abuse patient.White HospitalIn the event this information is protected by the Federal Confidentiality of Alcohol and Drug Abuse Patient Records regulations: The Federal rules restrict any use of the information to criminally investigate or prosecute any alcohol or drug abuse patient.White HospitalIn the event this information is protected by the Federal Confidentiality of Alcohol and Drug Abuse Patient Records regulations: The Federal rules restrict any use of the information to criminally investigate or prosecute any alcohol or drug abuse patient.White HospitalIn the event this information is protected by the Federal Confidentiality of Alcohol and Drug Abuse Patient Records regulations: The Federal rules restrict any use of the information to criminally investigate or prosecute any alcohol or drug abuse patient.White HospitalIn the event this information is protected by the Federal Confidentiality of Alcohol and Drug Abuse Patient Records regulations: The Federal rules restrict any use of the information to criminally investigate or prosecute any alcohol or drug abuse patient.White HospitalIn the event this information is protected by the Federal Confidentiality of Alcohol and Drug Abuse Patient Records regulations: The Federal rules restrict any use of the information to criminally investigate or prosecute any alcohol or drug abuse patient.[facility] HospitalIn the event this information is protected by the Federal Confidentiality of Alcohol and Drug Abuse Patient Records regulations: The Federal rules restrict any use of the information to criminally investigate or prosecute any alcohol or drug abuse patient.[facility] HospitalIn the event this information is protected by the Federal Confidentiality of Alcohol and Drug Abuse Patient Records regulations: The Federal rules restrict any use of the information to criminally investigate or prosecute any alcohol or drug abuse patient.[facility] HospitalIn the event this information is protected by the Federal Confidentiality of Alcohol and Drug Abuse Patient Records regulations: The Federal rules restrict any use of the information to criminally investigate or prosecute any alcohol or drug abuse patient.[facility] HospitalIn the event this information is protected by the Federal Confidentiality of Alcohol and Drug Abuse Patient Records regulations: The Federal rules restrict any use of the information to criminally investigate or prosecute any alcohol or drug abuse patient.[facility] HospitalIn the event this information is protected by the Federal Confidentiality of Alcohol and Drug Abuse Patient Records regulations: The Federal rules restrict any use of the information to criminally investigate or prosecute any alcohol or drug abuse patient.[facility] HospitalIn the event this information is protected by the Federal Confidentiality of Alcohol and Drug Abuse Patient Records regulations: The Federal rules restrict any use of the information to criminally investigate or prosecute any alcohol or drug abuse patient.White HospitalIn the event this information is protected by the Federal Confidentiality of Alcohol and Drug Abuse Patient Records regulations: The Federal rules restrict any use of the information to criminally investigate or prosecute any alcohol or drug abuse patient.White HospitalIn the event this information is protected by the Federal Confidentiality of Alcohol and Drug Abuse Patient Records regulations: The Federal rules restrict any use of the information to criminally investigate or prosecute any alcohol or drug abuse patient.White HospitalIn the event this information is protected by the Federal Confidentiality of Alcohol and Drug Abuse Patient Records regulations: The Federal rules restrict any use of the information to criminally investigate or prosecute any alcohol or drug abuse patient.[facility] HospitalIn the event this information is protected by the Federal Confidentiality of Alcohol and Drug Abuse Patient Records regulations: The Federal rules restrict any use of the information to criminally investigate or prosecute any alcohol or drug abuse patient.[facility] HospitalIn the event this information is protected by the Federal Confidentiality of Alcohol and Drug Abuse Patient Records regulations: The Federal rules restrict any use of the information to criminally investigate or prosecute any alcohol or drug abuse patient.White HospitalIn the event this information is protected by the Federal Confidentiality of Alcohol and Drug Abuse Patient Records regulations: The Federal rules restrict any use of the information to criminally investigate or prosecute any alcohol or drug abuse patient.[facility] HospitalIn the event this information is protected by the Federal Confidentiality of Alcohol and Drug Abuse Patient Records regulations: The Federal rules restrict any use of the information to criminally investigate or prosecute any alcohol or drug abuse patient.White HospitalIn the event this information is protected by the Federal Confidentiality of Alcohol and Drug Abuse Patient Records regulations: The Federal rules restrict any use of the information to criminally investigate or prosecute any alcohol or drug abuse patient.White HospitalIn the event this information is protected by the Federal Confidentiality of Alcohol and Drug Abuse Patient Records regulations: The Federal rules restrict any use of the information to criminally investigate or prosecute any alcohol or drug abuse patient.White HospitalIn the event this information is protected by the Federal Confidentiality of Alcohol and Drug Abuse Patient Records regulations: The Federal rules restrict any use of the information to criminally investigate or prosecute any alcohol or drug abuse patient.White HospitalIn the event this information is protected by the Federal Confidentiality of Alcohol and Drug Abuse Patient Records regulations: The Federal rules restrict any use of the information to criminally investigate or prosecute any alcohol or drug abuse patient.White HospitalIn the event this information is protected by the Federal Confidentiality of Alcohol and Drug Abuse Patient Records regulations: The Federal rules restrict any use of the information to criminally investigate or prosecute any alcohol or drug abuse patient.White HospitalIn the event this information is protected by the Federal Confidentiality of Alcohol and Drug Abuse Patient Records regulations: The Federal rules restrict any use of the information to criminally investigate or prosecute any alcohol or drug abuse patient.White HospitalIn the event this information is protected by the Federal Confidentiality of Alcohol and Drug Abuse Patient Records regulations: The Federal rules restrict any use of the information to criminally investigate or prosecute any alcohol or drug abuse patient.[facility] HospitalIn the event this information is protected by the Federal Confidentiality of Alcohol and Drug Abuse Patient Records regulations: The Federal rules restrict any use of the information to criminally investigate or prosecute any alcohol or drug abuse patient.White HospitalIn the event this information is protected by the Federal Confidentiality of Alcohol and Drug Abuse Patient Records regulations: The Federal rules restrict any use of the information to criminally investigate or prosecute any alcohol or drug abuse patient.[facility] HospitalIn the event this information is protected by the Federal Confidentiality of Alcohol and Drug Abuse Patient Records regulations: The Federal rules restrict any use of the information to criminally investigate or prosecute any alcohol or drug abuse patient.[facility] HospitalIn the event this information is protected by the Federal Confidentiality of Alcohol and Drug Abuse Patient Records regulations: The Federal rules restrict any use of the information to criminally investigate or prosecute any alcohol or drug abuse patient.[facility] HospitalIn the event this information is protected by the Federal Confidentiality of Alcohol and Drug Abuse Patient Records regulations: The Federal rules restrict any use of the information to criminally investigate or prosecute any alcohol or drug abuse patient.[facility] HospitalIn the event this information is protected by the Federal Confidentiality of Alcohol and Drug Abuse Patient Records regulations: The Federal rules restrict any use of the information to criminally investigate or prosecute any alcohol or drug abuse patient.White HospitalIn the event this information is protected by the Federal Confidentiality of Alcohol and Drug Abuse Patient Records regulations: The Federal rules restrict any use of the information to criminally investigate or prosecute any alcohol or drug abuse patient.White HospitalIn the event this information is protected by the Federal Confidentiality of Alcohol and Drug Abuse Patient Records regulations: The Federal rules restrict any use of the information to criminally investigate or prosecute any alcohol or drug abuse patient.[facility] HospitalIn the event this information is protected by the Federal Confidentiality of Alcohol and Drug Abuse Patient Records regulations: The Federal rules restrict any use of the information to criminally investigate or prosecute any alcohol or drug abuse patient.White HospitalIn the event this information is protected by the Federal Confidentiality of Alcohol and Drug Abuse Patient Records regulations: The Federal rules restrict any use of the information to criminally investigate or prosecute any alcohol or drug abuse patient.White HospitalIn the event this information is protected by the Federal Confidentiality of Alcohol and Drug Abuse Patient Records regulations: The Federal rules restrict any use of the information to criminally investigate or prosecute any alcohol or drug abuse patient.White HospitalIn the event this information is protected by the Federal Confidentiality of Alcohol and Drug Abuse Patient Records regulations: The Federal rules restrict any use of the information to criminally investigate or prosecute any alcohol or drug abuse patient.White HospitalIn the event this information is protected by the Federal Confidentiality of Alcohol and Drug Abuse Patient Records regulations: The Federal rules restrict any use of the information to criminally investigate or prosecute any alcohol or drug abuse patient.White HospitalIn the event this information is protected by the Federal Confidentiality of Alcohol and Drug Abuse Patient Records regulations: The Federal rules restrict any use of the information to criminally investigate or prosecute any alcohol or drug abuse patient.White HospitalIn the event this information is protected by the Federal Confidentiality of Alcohol and Drug Abuse Patient Records regulations: The Federal rules restrict any use of the information to criminally investigate or prosecute any alcohol or drug abuse patient.[facility] HospitalIn the event this information is protected by the Federal Confidentiality of Alcohol and Drug Abuse Patient Records regulations: The Federal rules restrict any use of the information to criminally investigate or prosecute any alcohol or drug abuse patient.[facility] HospitalIn the event this information is protected by the Federal Confidentiality of Alcohol and Drug Abuse Patient Records regulations: The Federal rules restrict any use of the information to criminally investigate or prosecute any alcohol or drug abuse patient.[facility] HospitalIn the event this information is protected by the Federal Confidentiality of Alcohol and Drug Abuse Patient Records regulations: The Federal rules restrict any use of the information to criminally investigate or prosecute any alcohol or drug abuse patient.White HospitalIn the event this information is protected by the Federal Confidentiality of Alcohol and Drug Abuse Patient Records regulations: The Federal rules restrict any use of the information to criminally investigate or prosecute any alcohol or drug abuse patient.White HospitalIn the event this information is protected by the Federal Confidentiality of Alcohol and Drug Abuse Patient Records regulations: The Federal rules restrict any use of the information to criminally investigate or prosecute any alcohol or drug abuse patient.[facility] HospitalIn the event this information is protected by the Federal Confidentiality of Alcohol and Drug Abuse Patient Records regulations: The Federal rules restrict any use of the information to criminally investigate or prosecute any alcohol or drug abuse patient.White HospitalIn the event this information is protected by the Federal Confidentiality of Alcohol and Drug Abuse Patient Records regulations: The Federal rules restrict any use of the information to criminally investigate or prosecute any alcohol or drug abuse patient.White HospitalIn the event this information is protected by the Federal Confidentiality of Alcohol and Drug Abuse Patient Records regulations: The Federal rules restrict any use of the information to criminally investigate or prosecute any alcohol or drug abuse patient.White HospitalIn the event this information is protected by the Federal Confidentiality of Alcohol and Drug Abuse Patient Records regulations: The Federal rules restrict any use of the information to criminally investigate or prosecute any alcohol or drug abuse patient.White HospitalIn the event this information is protected by the Federal Confidentiality of Alcohol and Drug Abuse Patient Records regulations: The Federal rules restrict any use of the information to criminally investigate or prosecute any alcohol or drug abuse patient.White HospitalIn the event this information is protected by the Federal Confidentiality of Alcohol and Drug Abuse Patient Records regulations: The Federal rules restrict any use of the information to criminally investigate or prosecute any alcohol or drug abuse patient.White HospitalIn the event this information is protected by the Federal Confidentiality of Alcohol and Drug Abuse Patient Records regulations: The Federal rules restrict any use of the information to criminally investigate or prosecute any alcohol or drug abuse patient.[facility] Reason for Visit (unrecogniz ed section and content) ReasonCommentsPatient EducationPVIReasonCommentsTransmitter3 monthsReason CommentsPost Dc Program Call - Needs AttnReasonCommentschest discomfort after ablationReasonOnset DateCommentsRefill Yywsssd03/28/2022ReasonOnset DateComments Refill Btphjpb95/29/2022ReasonCommentsAtrial FibrillationReasonCommentsRadiology CTSpecialtyDiagnoses / ProceduresReferred By ContactReferred To ContactCT IMAGING Diagnoses Persistent atrial fibrillation (HCC) Procedures CT PULMONARY VEIN W IVCON CT HEART CONTRAST EVAL CARDIAC STRUCTURE&MORPH Juan, Foreign, DIRECTOR 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.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 [address] [place] [address] Ct Imaging Referral IDStatusReasonStart DateExpiration DateVisits RequestedVisits [id number] Auto-Generated Referral /[id number]e Patient Follow-Upresults form CT scanReasonCommentsEstablished Patient6 week follow upReasonCommentsCardiology Follow UpReasonCommentsPatient UpdateReasonCommentsResultsReasonComments Cardiology Follow UpReasonCommentsRefill RequestReasonOnset DateCommentsRefill Pkomxtd5110/13/2022ReasonCommentsPatient QuestionReasonCommentsFollow UpReason Rzovkvsb9uo po colonoscopyReasonCommentsKnee PainReasonCommentsBack PainReason CommentsConsultScreening colonoscopySpecialtyDiagnoses / ProceduresReferred By ContactReferred To ContactGeneral Surgery Diagnoses Screening for malignant neoplasm of colon Procedures DC OFFICE/OUTPATIENT [facility] MDM 60 MINUTES Linda Jansen PA [address] [facility] [address] [place] [address] Grace Bucio MD [address] [place] [address] Referral IDStatusRefulton state hospitalStchester DateExpiration DateVisits RequestedVisits [id number] Specialty Services Required [id number] PainPost-opReasonCommentsKnee Pain Post-opPainReasonCommentsPainReasonOnset DateCommentsRefill Qhfkxxc1201/01/2025 Care Teams (unrecognized sec tion and content) Team MemberRelationshipSpecialtyStart [place] [address] [place] [address] Primary Staff PhysicianCardiology03/22/22Team MemberRelationshipSpecialtyStart DateEnd Date [place]a Tuttle [place] [id number] [place] [address] Primary Staff PhysicianCardiology03/22/22Team MemberRelationshipSpecialtyStart DateEnd Date Ita Tuttle MD [address] [address] Primary Staff PhysicianCardiology03/22/22Team MemberRelationshipSpecialtyStart DateEnd Date Ita Tuttle MD [address] [address] Primary Staff PhysicianCardiology03/22/22Team MemberRelationshipSpecialtyStart DateEnd Date Ita Tuttle MD [address] [address] Primary Staff PhysicianCardiology03/22/22Team MemberRelationshipSpecialtyStart DateEnd Date Ita Tuttle MD [address] [address] Primary Staff PhysicianCardiology03/22/22Team MemberRelationshipSpecialtyStart DateEnd Date [place]uttle [place] [id number] [place] [address] Primary Staff PhysicianCardiology03/22/22Team MemberRelationshipSpecialtyStart [place] [address] [place] [address] Primary Staff PhysicianCardiology03/22/22Team MemberRelationshipSpecialtyStart DateEnd [place] Ita Tuttle [place] [id number] [place] [address] Primary Staff PhysicianCardiology03/22/22Team MemberRelationshipSpecialtyStart DateEnd Date Ita Tuttle [place] [address] [place] [address] Primary Staff PhysicianCardiology03/22/22Team MemberRelationshipSpecialtyStart DateEnd [place] It[place]uttle [place] [id number] [place] [address] Primary Staff PhysicianCardiology03/22/22Team MemberRelationshipSpecialtyStart DateEnd Date Ita Tuttle MD [address] [place] [address] Primary Staff PhysicianCardiology03/22/22Team MemberRelationshipSpecialtyStart DateEnd Date Ita Tuttle [place] [address] [place] [address] Primary Staff PhysicianCardiology03/22/22Team MemberRelationshipSpecialtyStart [place] [address] [place] [address] Primary Staff PhysicianCardiology03/22/22Team MemberRelationshipSpecialtyStart DateEnd Date Ita Tuttle [place] [address] [place] [address] Primary Staff PhysicianCardiology03/22/22Team MemberRelationshipSpecialtyStart [place] [address] [facility] [address] Primary Staff PhysicianCardiology03/22/22Team MemberRelationshipSpecialtyStart [place] [address] [facility] [place] [address] Primary Staff PhysicianCardiology03/22/22Team MemberRelationshipSpecialtyStart [place] [address] [place] [address] Primary Staff PhysicianCardiology03/22/22 Team Status: Active Member Role Status Dates Linda Jansen PA-C Primary Care Provider Active Team Status: Active Member Role Status Dates Sedrick Ye MD Primary Care Provider Active S tart: January 23, 2024 Christian Carlos II, DOAttending ProviderActiveStart: January 23, 2024 Linda Jansen NP-CReferring ProviderActiveStart: January 23, 2024 Team Status: Inactive Member Role Status Dates Christian Carlos II, DO Attending Provider Active Start: January 23, 2024 End: January 23, 2024DOROTHEA [place]-CPrimary Care Provider, Referring Provider ActiveStart: January 23, 2024 End: January 23, 2024Team MemberRelationshipSpecialtyStart [place] [address] [facility] [place] [address] Primary Staff PhysicianCardiology03/22/22Team MemberRelationshipSpecialtyStart [place] [address] [place] [address] Primary Staff PhysicianCardiology03/22/22 Team Status: Active Member Role Status Dates Sedrick Ye MD Primary Care Provider Active S tart: April 23, 2024 Christian Carlos II, DOAttending ProviderActiveStart: April 23, 2024 Linda Jansen , REGIONAL COORDINATOR-CReferring ProviderActiveStart: April 23, 2024 Team Status: Inactive Member Role Status Dates Patriaconcha Solares APRN Attending Provider Acti ve Start: April 23, 2024 End: April 23, 2024Team MemberRelationshipSpecialtyStart DateEnd Date Linda Jansen PA [address] [facility] [address] [place] [address] PCP - GeneralFamily Pdoxldfe51/13/23 Linda Jansen PA [address] [facility] [address] [place] [address] PCP - Medical [facility] [employer]02/23/2312Team MemberRelationshipSpecialty Start DateEnd Date Linda Jansen PA [address] [facility] [address] [place] [address] PCP - Generalmily Pddpqakz60/13/23 Linda Jansen PA [address] [facility] [address] [place] [address] PCP - [facility] [employer]02/23/2312Team MemberRelationshipSpecialty Start DateEnd Date Linda Jansen PA [address] [facility] [address] [place] [address] PCP - [facility]08/06/23 Linda Jansen PA [address] [facility] [address] [place] [address] PCP - [facility]02/23/2312Team MemberRelationshipSpecialty Start DateEnd Date Lidna Jansen PA [address] [facility] [address] [place] [address] PCP - [facility]08/06/23 Linda Jansen PA [address] [facility] [address] [place] [address] PCP - [facility]02/23/2312Team MemberRelationshipSpecialty Start DateEnd Date Linda Jansen PA [address] [facility] [address] [place] [address] PCP - [facility]08/06/23 Linda Jansen PA [address] [facility] [address] [place] [address] PCP - [facility]02/23/2312Team MemberRelationshipSpecialty Start DateEnd Date Linda Jansen PA [address] [facility] [address] [place] [address] PCP - [facility]08/06/23 Linda Jansen PA [address] [facility] [address] [place] [address] PCP - [facility]02/23/2312Team MemberRelationshipSpecialty [place] [address] [facility] [place] [address] Primary Staff PhysicianCardiology03/22/22Team MemberRelationshipSpecialtyStart DateEnd Date Linda Jansen PA [address] [facility] [address] [place] [address] PCP - [facility]Spen[facility] Hospitally Realbgwz92/13/23 Linda Jansen PA [address] [facility] [address] [place] [address] PCP - [facility] [employer]02/23/2312Team MemberRelationshipSpecialty Start DateEnd Date Linda Jansen PA [address] [facility] [address] [place] [address] [facility] - [facility] Bddbamzv29/13/23Team MemberRelationshipSpecialtyStart Date End Date Linda Jansen PA [address] [facility] [address] [place] [address] PCP - GeneralFamily Fdawvhrr64/13/23Team MemberRelationshipSpecialtyStart Date End Date Linda Jansen PA [address] [facility] [address] [place] [address] PCP - GeneralFamily Gpogleop44/13/23Team MemberRelationshipSpecialtyStart Date End Date Linda Jansen PA [address] [facility] [address] [place] [address] PCP - GeneralFamily Kbkrldjn08/13/23 Linda Jansen PA [address] [facility] [address] [place] [address] PCP - [facility] [employer]02/23/2312Team MemberRelationshipSpecialty [place] [address] [place] [address] Primary Staff PhysicianCardiology03/22/22Team MemberRelationshipSpecialtyStart DateEnd Date Linda Jansen PA [address] [facility] [address] [place] [address] [facility] - [facility] Xypclvij94/13/23 Linda Jansen PA [address] [facility] [address] [place] [address] PCP - [facility] [employer]02/23/2312 Team Status: Active Member Role Status Dates NON STAFF Primary Care Provider Active Team Status: Active Member Role Status Dates Sedrick Ye MD Primary Care Provider Active S tart: November 12, 2024 Christian Carlos II, DOAttending ProviderActiveStart: November 12, 2024 Linda Jansen , REGIONAL COORDINATOR-CReferring ProviderActiveStart: November 12, 2024 Team Status: Inactive Member Role Status Dates NON STAFF Primary Care Provider Active Start: November 30, 2024 End: November 30ashleigh Gómez - [facility] , DO CHCAttending ProviderActiveStart: November 30, 2024 End: November 30, 2024Team MemberRelationshipSpecialtyStart [place] [address] [place] [address] Primary Staff PhysicianCardiology03/22/22Team MemberRelationshipSpecialtyStart DateEnd Date Linda Jansen PA [address] [facility] [address] [place] [address] PCP - [facility]08/06/23 Linda Jansen PA [address] [facility] [address] [place] [address] PCP - [facility]02/23/2312Team MemberRelationshipSpecialty Start DateEnd Date Linda Jansen PA [address] [facility] [address] [place] [address] PCP - [facility]08/06/23 Linda Jansen PA [address] [facility] [address] [place] [address] PCP - [facility]02/23/2312 Team Status: Active Member Role Status Dates Linda Jansen REGIONAL COORDINATOR-C Primary Care Provider Active Team Status: Inactive Member Role Status Dates Christian Carlos II, DO Attending Provider Active Start: January 21, 2025 End: January 21, 2025Linda Jansen NP-CPrimary Care ProviderActiveStart: January 21, 2025 End: January 21, 2025Linda Jansen NP-CReferring ProviderActiveStart: January 21, 2025 Team Status: Inactive Member Role Status Dates Linda Jansen REGIONAL COORDINATOR-C Primary Care Provider Active Start: February 10, 2025 End: February 10, 2025Christian Carlos II, DOAttending ProviderActiveStart: February 10, 2025 End: February 10, 2025 Team Status: Inactive Member Role Status Dates Linda Jansen REGIONAL COORDINATOR-C Primary Care Provider Active Start: February 19, 2025 End: February 19, 2025Clair Moss ProviderActiveStart: February 19, 2025 End: February 19, 2025Team MemberRelationshipSpecialtyStart DateEnd Date Linda Jansen PA [address] [facility] [address] [place] [address] PCP - GeneralFamily Rmowfuuv52/13/23 Linda Jansen PA [address] [facility] [address] [place] [address] PCP - Medical [facility]02/23/2312 Team Status: Inactive Member Role Status Dates Christian Carlos II, DO Attending Provider Active Start: January 21, 2025 End: January 21, 2025Linda Jansen NP-CPrimary Care ProviderActiveStart: January 21, 2025 End: January 21, 2025 Team Status: Inactive Member Role Status Dates Linda Jansen NP-C Primary Care Provider Active Start: March 04, 2025 End: March 04, 2025Christian Carlos II, DOAttending ProviderActiveStart: March 04, 2025 End: March 04, 2025 Team Status: Active Member Role Status Dates Sedrick Ye MD Primary Care Provider Active S tart: March 04, 2025 Christian Carlos II, DOAttending ProviderActiveStart: March 04, 2025 Linda Jansen REGIONAL COORDINATOR-CReferring ProviderActiveStart: March 04, 2025 Team MemberRelationshipSpecialtyStart [place] [address] [place] [address] Primary Staff PhysicianCardiology03/22/22Team MemberRelationshipSpecialtyStart DateEnd Date Linda Jansen PA [address] [facility] [address] [place] [address] PCP - GeneralFaally Ycdhtwhg80/13/23Team MemberRelationshipSpecialtyStart Date End Date Lnida Jansen PA [address] [facility] [address] [place] [address] PCP - [facility]08/06/23Team MemberRelationshipSpecialtyStart Date End Date Linda Jansen PA [address] [facility] [address] [place] [address] PCP - [facility]08/06/23 Team Status: Inactive Member Role Status Dates Linda Jansen , REGIONAL COORDINATOR-C Primary Care Provider Active Start: May 13, 2025 End: May 13martir Daily NP-CAttending ProviderActiveStart: May 13, 2025 End: May 13, 2025 Team Status: Active Member Role Status Dates Linda Jansen REGIONAL COORDINATOR-C Primary Care Provider Active Start: May 13, 2025 Christian Carlos II, DOAttending ProviderActiveStart: May 13, 2025 Team Status: Active Member Role Status Dates Christian Carlos II, DO Attending Provider Active Start: May 13, 2025 Linda Jansen REGIONAL COORDINATOR-CPrimary Care ProviderActiveStart: May 13, 2025 Linda Jansen , REGIONAL COORDINATOR-CReferring ProviderActiveStart: May 13, 2025 Team Status: Inactive Member Role Status Dates Linda Jansen REGIONAL COORDINATOR-C Primary Care Provider Active Start: May 27, 2025 End: May 27, 2025Christian Carlos II, DOAttending ProviderActiveStart: May 27, 2025 End: May 27, 2025 Team Status: Active Member Role Status Dates Christian Carlos II, DO Attending Provider Active Start: May 27, 2025 Linda Jansen , REGIONAL COORDINATOR-CPrimary Care ProviderActiveStart: May 27, 2025 Linda Jansen , REGIONAL COORDINATOR-CReferring ProviderActiveStart: May 27, 2025 Team MemberRelationshipSpecialtyStart DateEnd Date Linda Jansen PA [address] [facility] [address] [place] [address] PCP - [facility]08/06/23 Linda Jansen PA [address] [facility] [address] [place] [address] PCP - Medical [facility] [employer] Goals (unrecognized section and content) Goals may [...] BE BASED ON THE PRIMARY CLINICAL RECORDS. [employer] [facility]. provides no warranty or guarantee of the accuracy or completeness of information in this document.
--- OUTSIDE RECORDS SUMMARY | 2025-06-24 06:22 | XMS_ITS | Clinical Summary ---
Author Organization iPerceptions tem Address [facility] [id number] [address] 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 Name Role Phone Unavailable Primary Care Provider Unavailabl e Social History Tobacco UseTypesPacks/DayYears UsedDateSmoking Tobacco: Never AssessedChildcare AnswerDate MxqtgocoAurtqczvsJlwpsrj52/12/2019EmploymentAnswerDate Recorded VwfdwvdpisFmwtwlu37/12/2019Sex and Gender InformationValueDate RecordedSex Assigned at BirthNot on fileLegal UipAbzg8403/30/2015 11:55 AM EDTGender Identity Not on fileSexual OrientationNot on file Plan of Treatment Health MaintenanceDue DateLast DoneCommentsDepression Kndshplgm98/27/1972Tobacco Fxgisfrpw73/27/1972Adult BMI Ozmdiuhhl30/27/1978DTaP,Tdap and Td Vaccines (1 - Tdap)1978Zoster (Shingles) Vaccine (1 of 2)2009Fall Risk Screening 2024Influenza Rkkrqwm66, 05/25/2019, 06/10/2018 Medical Devices Not on file Insurance
--- OUTSIDE RECORDS SUMMARY | 2025-06-24 06:22 | XMS_ITS | Clinical Summary ---
Author Organization [facility] Address [address] [place] [id number] Care Team Providers Care Document Control Associate Name Role Phone Ita Tuttle MD [facility] [phone] Allergies No known active allergies Medications MedicationSigDispense QuantityRefillsLast FilledStart DateEnd DateStatus sildenafil citrate (VIAGRA ORAL) Take by mouth as needed.Active aspirin, enteric coated (ASPIRIN, ENTERIC COATED) 81 mg EC tablet Take 81 mg by mouth.07/30/2013ctive meloxicam (MOBIC) 15 mg tablet TAKE 1 TABLET (15 MG) BY MOUTH DAILY NEEDED FOR MILD PAIN01/08/2024ctive doxazosin (CARDURA) 4 mg tablet TAKE 1 TABLET BY MOUTH EVERYDAY AT BEDTIME 90 tablet 4Active nebivolol (BYSTOLIC) 5 mg tablet Indications:Prescription refillTake 1 tablet by mouth once daily. 90 tablet 3105Active NIFEdipine XL (ADALAT CC) 30 mg 24 hr tablet Indications:Hypertension, unspecified typeTake 1 tablet by mouth once daily. 90 tablet 310/5Active Valsartan-hydroCHLOROthiazide 320-25 mg per tablet Take 1 tablet by mouth once daily. 30 tablet 3105Active nebivolol (BYSTOLIC) 5 mg tablet Indications:Prescription refillTAKE 1 TABLET BY MOUTH EVERY DAY 90 tablet 302/04/Discontinued NIFEdipine XL (ADALAT CC) 30 mg 24 hr tablet Indications:Hypertension, unspecified typeTake 1 tablet by mouth once daily. 90 tablet 305//Discontinued Valsartan-hydroCHLOROthiazide 320-25 mg per tablet Take 1 tablet by mouth once daily. 90 tablet Discontinued Active Problems ProblemNoted DateDiagnosed DatePONV (postoperative nausea and vomiting) 12/03/2021trial fibrillation, jvmuxfkhkq36/03/2022enign essential HTN 09/27/2021SA (obstructive sleep apnea)09/27/2021 Encounters DateTypeDepartmentCare IkkoErzsvkhhzac93/15/2025Refill Cardiology [id number] [place] [phone] WatIta wright MD Refill Ldurmrc1806/08/2025Refill Cardiology [address] [place] [phone] WatIta wright MD Refill Hihrrgv4306/08/20256893Iwncml32/11/2025 2:30 PM EDTOffice Visit Cardiology [id number] [place] [phone] Ita Tuttle MD PAF (paroxysmal atrial fibrillation) (HCC) (Primary Dx); Atrial fibrillation, persistent (HCC); Benign essential HTN; Hypertension, unspecified type; Tachycardia induced cardiomyopathy (HCC)04/03/2025Travelfrom Last 3 Months Immunizations ImmunizationAdministration DatesNext Duehepatitis B (HepB) vaccine, 3-dose series, age 20+ yr (ENGERIX-B, RECOMBIVAX HB)01/29/2005,08/28/2004,07/24/2004 influenza (IIV4) vaccine, age 6 mo - 64 yr, quadrivalent, PF (AFLURIA, FLUARIX, FLULAVAL, FLUZONE)06/10/2019,06/10/2018 Social History Tobacco UseTypesPacks/DayYears UsedDateSmoking Tobacco: NeverSmokeless Tobacco: Never Tobacco Cessation:Counseling Given: Not Answered Alcohol UseStandard Drinks/WeekCommentsNot Currently0 (1 standard drink = 0.6 oz pure alcohol)Area Deprivation IndexAnswerDate RecordedNational Score (1-100), lower number is lower ydws459212/25/2022State Score (1-10), lower number is lower ejpb851/03/2023Data from: https://www.neighborhoodatlas.medicine.[facility]/. Last address used for g[address] yi12/25/2022Sex and Gender InformationValueDate RecordedSex Assigned at BirthNot on fileLegal SexMale 06/01/2021 12:00 PM EDTGender IdentityNot on fileSexual OrientationNot on file Last Filed Vital Signs Vital SignReadingTime TakenCommentsBlood Xqnoojym037/8808 2:32 PM EDT Bakqe014004/04/2025 2:32 PM ZUUGdfhkgyesfy44.9 ??C (98.5 ??F)04/05/2022 2:52 PM EDTRespiratory Iuba762810/03/2023 1:23 PM ESTOxygen Bwfztzfqpp95%01/30/2024 2:12 PM EDTInhaled Oxygen Concentration--Okkaxt98.6 kg (195 lb 5.2 oz)04/04/2025 2:32 PM GWGWdikqv510.9 cm (6')04/04/2025 2:32 PM EDTBody Mass Index26.4908 2:32 PM EDT Plan of Treatment DateTypeDepartmentCare Team (Latest Contact Info)Vgylpvvbkcf05/12/2026 8:00 AM EDTOffice Visit Cardiology [address] [place] [phone] [place] [address] [place] [address] yearly follow upHealth MaintenanceDue DateLast DoneCommentsAnnual PCP Team Chronic Disease Visit1977Anxiety Rytzxmyaz57/27/1978Depression Screening 1977HIV Buqplfyam78/27/1978Hepatitis C Wlefxbbxj69/27/1978DTaP,Tdap,Td Vaccine (1 - Tdap)1978CT Hkuyusztejhj90/27/2005Cologuard (FIT-DNA) 09/20/20041373Qbaskatpejn92/27/2005Colorectal Cancer Lskwbjujt92/27/2005Fecal Occult Blood09/20/20046704Zuqsivozpbswo48/27/2005Pneumococcal Vaccine: 50+ (1 of 1 - PCV) 2009Shingrix Vaccine (1 of 2)2009dvance Directive Discussion 5Covid-19 Vaccine (1 - 2024- season)2025Influenza Vaccine (#1) 5109/19/2021, 06/10/2019, 05/25/2019, Additional history existsMedicare Annual Wellness Visit04/25/2025Lipid Wudyiuyzo31, 04/01/2022 Diabetes Ozprppqak18, 03/18/2025, 02/10/2025, Additional history existsProstate Cancer Screening Rotjmyhgpo62, 12/27/2022, 2RSV Vaccine (1 - 1-dose 75+ series)2034 Procedures Procedure NamePriorityDate/TimeAssociated DiagnosisCommentsLVEF TRANSTHORACIC CEZAVdtdtdh30/20/2025 10:33 AM EDT OLNOQfcgakv86/20/2025 10:33 AM EDT PAF (paroxysmal atrial fibrillation) (HCC) ECG BEXQSSML74/11/2025 2:34 PM EDT BASIC METABOLIC PIIMDWeexudx41/23/2023 3:53 PM EST Hypertension, unspecified type LIPID PANEL, URXPHVUObjqjnz83/08/2022 7:33 AM EDT Atherosclerosis from Last 3 Months or Most Recently Relevant to Health Maintenance Results * ECHO (06/13/2025 10:33 AM EDT)Specimen (Source)Anatomical Location / LateralityCollection Method / VolumeCollection TimeReceived Time06/13/2025 10:33 AM EDT [facility] - 06/13/2025 11:45 AM EDT CONCLUSIONS: - Exam indication: Sustained atrial fibrillation - The left ventricle is normal in size. Left ventricular systolic function is normal. EF = 58 ?? 5% (2D biplane) Normal left ventricular diastolic [...] * * * Final * * * [facility] - 06/13/2025 11:45 AM EDT Echocardiography Report: Transthoracic Echo [facility] Date of service: 06/13/2025 10:33:42 AM COMMUNICATIONS ARCHITECT Ordering physician: ITA TUTTLE Exam indication: Sustained atrial fibrillation Technologist: Glenroy Carrington RDMS, RVT Interpreting physician: Lelia Escoto MD PATIENT: Name: MR. YURI VALERA : 1960 Age: 64 years Gender: M Previous cardiovascular interventions: PVI (2021) Primary rhythm: sinus. Height: 182.90 cm BSA: 2.12 m?? Weight: 88.60 kg ??BMI: 26.5 kg/m?? Heart rate ? 72 bpm Blood pressure 143/87 mmHg Color Doppler was utilized to interrogate the cardiac valves assessed and spectral Doppler was utilized to determine the flow velocities and pressure gradients reported in this exam. Myocardial strain analysis was performed in this exam to aid in the assessment of cardiac function. MEASUREMENTS: ? Value ? Indexed ?Normal Max aortic dimension 3.7 cm Ao < 3.8 Left atrial volume 74 ml (Anand's) 35 ml/m Benjy <= 34 LV ID (diastole) ? 5.5 cm (2D) ? 2.59 cm/m?? LV ID (systole) ?3.2 cm (2D) ? 1.50 cm/m?? IVS, leaflet tips ?0.9 cm (2D) Posterior wall thickness 0.8 cm (2D) Left ventricular mass ?184 g (2D) ?87 g/m?? Global peak long strain ??-19.4 % LV stroke volume ? 81 ml (2D biplane) LV end diastolic volume 140 ml (2D biplane) 65.9 ml/m 34<=EDVi<75 LV end systolic volume ?? 59 ml (2D biplane) ??27.8 ml/m?? Ejection Fraction 58 % (2D biplane) EF [...] is mildly dilated (RA area = 20.3 cm??). Inferior Vena Cava: The inferior vena cava [...] Doppler. PERICARDIUM There is no pericardial effusion. Authorizing ProviderResult TypeResult StatusAbdvi Tuttle MDECHOFinal Result Performing OrganizationAddressCity/State/ZIP CodePhone Number [facility] [address] [place] [address] * LVEF TRANSTHORACIC ECHO (06/13/2025 10:33 AM EDT)ComponentValueRef RangeTest MethodAnalysis TimePerformed AtPathologist SignatureLV Ejection Rzipqzly09% [facility]ASCULAR INSTITUTEComment: (2D biplane) EF > 52 An LV Ejection Fraction of > 50% is normal Specimen (Source)Anatomical Location / LateralityCollection Method / Volume Collection TimeReceived Time06/13/2025 10:33 AM EDT Narrative Authorizing ProviderResult TypeResult StatusIta Tuttle MDLVEF RESULTSFinal ResultPerforming OrganizationAddressCity/State/ZIP CodePhone Number [facility] [address] [place] [address] * ECG COMPLETE (04/04/2025 2:34 PM EDT)ComponentValueRef RangeTest Method Analysis TimePerformed AtPathologist SignatureVentricular Yuji80KQIDBKCD AND VASCULAR INSTITUTEAtrial Gubg12XOGMEQNI AND VASCULAR INSTITUTEP-R Ulytifsc068 msHEART AND VASCULAR INSTITUTEQRS Qibyeluw80wzAGYVZ AND VASCULAR INSTITUTEQT Tvmeppgi321zwSXLIS AND VASCULAR INSTITUTEQTC Calculation (Bazett)425msHEART AND VASCULAR INSTITUTECalculated P Uwrd94wsvnvvzTWKIR AND VASCULAR INSTITUTE Calculated R Qcty5lwxatmxZSURF AND VASCULAR INSTITUTECalculated T Axis18 degreesHEART AND VASCULAR INSTITUTESpecimen (Source)Anatomical Location / LateralityCollection Method / VolumeCollection TimeReceived Time04/04/2025 2:34 PM EDT [facility] - 04/04/2025 5:11 PM EDT NORMAL SINUS RHYTHM NORMAL ECG Confirmed by JADE DAS MD ([id number]) on 04/04/2025 5:11:38 PM Narrative [facility] - 04/04/2025 5:11 PM EDT NAME : YURI VALERA PID : [id number] : [place] 27 1961 Gender : Male Race : ORD : Procedure Date : Apr 04 2025 14:34:56 Edit Date : Apr 04 2025 17:11:41 Diagnosis: NORMAL SINUS RHYTHM NORMAL ECG Confirmed by JADE DAS MD ([id number]) on 04/04/2025 5:11:38 PM Test Reason : Location : 192 : AVCRD ?? Overread By : JADE DAS MD Edited By : JADE DAS MD Referred By : , Acquired by : , Authorizing ProviderResult TypeResult StatusCcf ProviderEKGFinal Result Performing OrganizationAddressCity/State/ZIP CodePhone Number [facility] [address] [place] [phone] * (ABNORMAL) LIPID PANEL BASIC (04/01/2022 7:33 AM EDT)ComponentValueRef Range Test MethodAnalysis TimePerformed AtPathologist SignatureCholesterol, Knpmq328 <200 mg/dL04/01/2022 7:01 PM [facility] LABComment: <200 mg/dL, Desirable 200-239 mg/dL, Borderline high >239 mg/dL, High Zgmrgmrlxkpm40<150 mg/dL04/01/2022 7:01 PM [facility] Comment: <150 mg/dL, Normal 150-199 mg/dL, Borderline high 200-499 mg/dL, High >499 mg/dL, Very high HDL Atxpikvzpqx68>39 mg/dL04/01/2022 7:01 PM [facility] Comment: 40-59 mg/dL, Acceptable >59 mg/dL, High: Negative risk factor for coronary heart disease <40 mg/dL, Low: Positive risk factor for coronary heart disease Non HDL Jxgyfzafiae665<130 mg/dL04/01/2022 7:01 PM [facility] LABComment: <130 mg/dL, Optimal 130-159 mg/dL, Near optimal/above optimal 160-189 mg/dL, Borderline high 190-219 mg/dL, High >219 mg/dL, Very high Secondary prevention optimal non HDL Cholesterol levels are recommended to be <100 mg/dL Fasting Eahx40uxp35/08/2022 7:01 PM [facility] LAB[facility] Htmwievijom08<30 mg/dL04/01/2022 7:01 PM [facility] TC:HDL Ratio3.33<5.1008 7:01 PM [facility] LABLDL Cholesterol, Mqreglernx842(H)<100 mg/dL04/01/2022 7:01 PM [facility] LABComment: <100 mg/dL, Optimal 100-129 mg/dL, Near optimal/above optimal 130-159 mg/dL, Borderline high 160-189 mg/dL, High >189 mg/dL, Very high Secondary prevention optimal LDL Cholesterol levels are recommended to be < 70 mg/dL LDL:HDL Ratio2.00<2.5408 7:01 PM [facility] Comment: Reference: 1. National Cholesterol Education Program ATP III Guideline At-A-Glance Quick Desk Reference: National Heart, Lung, and Blood [place]. National Institutes of Health. 2001: NIH Publication No. 01-3305. 2. An International Atherosclerosis Society position paper: global recommendations for the management of dyslipidemia: executive summary, Atherosclerosis. 2014: 232(2):410-413. Specimen (Source)Anatomical Location / LateralityCollection Method / Volume Collection TimeReceived TimeBloodBLOOD SPECIMEN / UnknownVenipuncture / Unknown 04/01/2022 7:33 AM EDT04/01/2022 7:33 AM EDT Narrative Authorizing ProviderResult TypeResult StatusIta Tuttle MDLABORATORYFinal ResultPerforming OrganizationAddressCity/State/ZIP CodePhone Number [facility] [address] [facility] [address] [place] [address], [facility] [address] [place] [address] from Last 3 Months or Most Recently Relevant to Health Maintenance Insurance Care Teams Team MemberRelationshipSpecialtyStart [place] [address] [place], [place] [phone] Primary Staff PhysicianCardiology03/22/22
--- OUTSIDE RECORDS SUMMARY | 2025-06-24 06:22 | XMS_ITS | Clinical Summary ---
Author Organization [facility] Healthcare Address [address] [place] [address] Care Team Providers Care Business Technology Analyst Name Role Phone Linda Jansen Primary Care Provider Allergies No known active allergies Medications MedicationSigDispense QuantityRefillsLast FilledStart DateEnd DateStatus NIFEdipine CC (Adalat CC) 30 MG 24 hr tablet Take 30 mg by mouth in the morning. Take before meals. Do not crush, chew, or split.Active doxazosin (Cardura) 4 MG tablet Take 1 tablet by mouth at scpowqn8005/25/2023ctive nebivolol (Bystolic) 5 MG tablet Take 5 mg by mouth DailyActive sildenafil (Viagra) 100 MG tablet Take 100 mg by mouth Daily as needed for erectile dysfunctionActive cholecalciferol (Vitamin D-3) 25 MCG tablet Take 25 mcg by mouth DailyActive Ascorbic Acid (vitamin C) 250 MG tablet Take 250 mg by mouth DailyActive b complex vitamins capsule Take 1 capsule by mouth DailyActive valsartan (Diovan) 320 MG tablet Indications:Primary hypertensionTAKE 1 TABLET BY MOUTH EVERY DAY 90 tablet 5Active Active Problems ProblemNoted DateDiagnosed DatePrimary osteoarthritis, unspecified ankle and foot03/01/2025History of colon avnbnh5205/21/2024rteriosclerotic vascular disease 02/09/2024Erectile ggrqwdqqmuf42/17/2024Lung qfeavs0002/09/2024History of piwsxdcyjesxvib04/17/2024History of COVID-19002/09/2024Other thrombophilia ([facility])02/09/2024Thoracic aortic mavmirv0402/09/20249693Ymbppllbpyrun90/10/2024 Primary uuczdlnffqgt34/12/2023Sleep apnea08/05/2023ONV (postoperative nausea and vomiting)12/03/2021 Resolved Problems ProblemNoted DateDiagnosed DateResolved RpcmWptmwxeqwsdyej77/17/202407/03/2025 Vbtlqcs03/Screening for colorectal urlhxi48/ Dphfnxoxbdawos04/17/202407/03/2025Ureteral stone/OVID-19 /Mixed nlxppatmaosoao92/12/202310/trial fibrillation /6908Ungquzwiobvwrb39/21/202306/Kidney stone04/14/2023 02/09/2024 Encounters DateTypeDepartmentCare YurtGolgbbqsvnt41/15/2025linisync Result Encounter NOMS External Department Unsolicited Provider, Generic External Data 05/30/2025bstract [facility] [address] [place] [address] Linda Jansen, PA 05/26/2025linisync Result Encounter NOMS External Department Unsolicited Provider, Generic External Data 05/19/2025linisync Result Encounter NOMS External Department Unsolicited Provider, Generic External Data 05/17/2025bstract [facility] [address] [place] [phone] Linda Jansen PA 05/16/2025linisync Result Encounter NOMS External Department Unsolicited Provider, Generic External Data 05/13/2025bstract [facility] [address] [place] [phone] Linda Jansen PA 05/12/2025External Result Encounter NOMS External Department Unsolicited Christian Carlos DO 05/12/2025External Result Encounter NOMS External Department Unsolicited Christian Carlos, DO 05/12/2025External Result Encounter NOMS External Department Unsolicited Christian Carlos, DO 05/12/2025External Result Encounter NOMS External Department Unsolicited Christian Carlos, DO 05/09/2025linisync Result Encounter NOMS External Department Unsolicited Provider, Generic External Data from Last 3 Months Immunizations ImmunizationAdministration DatesNext DueLicop B, adult01/29/2005,08/28/2004, 07/24/2004Influenza, injectable, quadrivalent, preservative free07/20/2022, 06/10/2019,06/10/2018Influenza, seasonal, fofvlmrppe83/01/2019 Family History Medical HistoryRelationNameCommentsCancerMotherDiane AustinRelationNameStatus CommentsMotherDiane Rl Social History Tobacco UseTypesPacks/DayYears UsedDateSmoking Tobacco: NeverSmokeless Tobacco: Never Tobacco Cessation:Counseling Given: Not Answered Alcohol UseStandard Drinks/WeekCommentsYes0 (1 standard drink = 0.6 oz pure alcohol)Caffeine intake: 1-2 cups per dayHumiliation, Afraid, Rape, and Kick questionnaireAnswerDate RecordedWithin the last year, have you been afraid of your partner or ex-partner?No08/06/2023Within the last year, have you been humiliated or emotionally abused in other ways by your partner or ex-partner?No 08/06/2023Within the last year, have you been kicked, hit, slapped, or otherwise physically hurt by your partner or ex-partner?No08/06/2023Within the last year, have you been raped or forced to have any kind of sexual activity by your part ner or ex-partner?No08/06/2023Social Connection and Isolation PanelAnswerDate RecordedIn a typical week, how many times do you talk on the phone with family, friends, or neighbors?Twice a week08/06/2023How often do you get together with friends or relatives?More than three times a week08/06/2023How often do you attend religion or hoahaoism services?1 to 4 times per year08/06/2023o you belong to any clubs or organizations such as religion groups, unions, fraternal or athletic groups, or school groups?Yes08/06/2023How often do you attend meetings of the clubs or organizations you belong to?Never08/06/2023re you , , , , never , or living with a partner? 08/06/2023UDIT-CAnswerDate RecordedQ1: How often do you have a drink containing alcohol?2-4 times a month08/06/2023Q2: How many drinks containing alcohol do you have on a typical day when you are drinking?1 or Q3: How often do you have six or more drinks on one occasion?Never08/06/2023Overall Financial Resource Strain (CARDIA)AnswerDate RecordedHow hard is it for you to pay for the very basics like food, housing, medical care, and heating?Not hard at all 08/06/2023HQ-2AnswerDate RecordedPatient Health Questionnaire-2 Score0 03/01/2025[facility] [place] [facility] Occup[facility] - Occupational Stress QuestionnaireAnswerDate RecordedDo you feel stress - tense, restless, nervous, or anxious, or unable to sleep at night because yourmind is troubled all the time - these days?Only a uhvzuf9008/06/2023Exercise Vital SignAnswerDate Recorded On average, how many days per week do you engage in moderate to strenuous exercise (like a brisk walk)?6 days08/06/2023On average, how many minutes do you engage in exercise at this level?60 min08/06/2023Hunger Vital SignAnswerDate RecordedWithin the past 12 months, you worried that your food would run out before you got the money to buymore.Never true08/06/2023Within the past 12 months, the food you bought just didn't last and you didn't have money to get more.Never true08/06/2023RAPARE - TransportationAnswerDate RecordedIn the past 12 months, has lack of transportation kept you from medical appointments or from getting medications?No08/06/2023In the past 12 months, has lack of transportation kept you from meetings, work, or from getting things needed for daily living?No08/06/2023Housing Stability Vital SignAnswerDate RecordedIn the last 12 months, was there a time when you were not able to pay the mortgage or rent on time?No08/06/2023In the last 12 months, how many places have you lived?1 08/06/2023In the last 12 months, was there a time when you did not have a steady place to sleep or slept in ashelter (including now)?No08/06/2023Sex and Gender InformationValueDate RecordedSex Assigned at BirthNot on fileLegal SexMale 11/06/2022 8:11 PM EDTGender IdentityNot on fileSexual OrientationNot on file Last Filed Vital Signs Vital SignReadingTime TakenCommentsBlood Urebhslp497/8407 9:26 AM EDT Osabz8143/08/2025 9:26 AM QUMGejhdvdtujw23.2 ??C (98.9 ??F)11/09/2024 10:32 AM EDTRespiratory Bfkg961303/01/2025 9:26 AM EDTOxygen Itfxnvvvnk93%03/01/2025 9:26 AM EDTInhaled Oxygen Concentration--Wqrxzv87.4 kg (199 lb 6.4 oz)03/01/2025 9:26 AM QZOSaveww821.9 cm (6')03/01/2025 9:26 AM EDTBody Mass Index27.04003/01/2025 9:26 AM EDT Plan of Treatment Health MaintenanceDue DateLast DoneCommentsCT Oiydnmzlvsji82/27/1960FIT-DNA 1959FIT5714WHXQ44/27/4285Awaqwwjwlyeox28/27/1960Pneumococcal Vaccine: 65+ Years (1 of 2 - PCV)1978Influenza Vaccine (#1)2025 07/20/2022, 06/10/2019, 05/25/2019, Additional history existsMedicare Annual Wellness (AWV), 1955Wpsowtpvlgt97, 10/02/2018Colorectal Cancer Xdpdkpnng79/08/2029 Procedures Procedure NamePriorityDate/TimeAssociated DiagnosisCommentsHMHP HAPTOGLOBIN Fqalmrr3106/08/2025 6:45 AM EDT MHPT MNTQUTPFLIMDJipzani14/15/2025 6:45 AM EDT ALL CBC WITH AUTO TMVSWwyhfvd23/15/2025 6:45 AM EDT ALL EHVAgmitoo85/15/2025 6:45 AM EDT [facility] CMP (CMP) (FOR REMOTE [facility] USE)Wlavkys1206/08/2025 6:45 AM EDT HMHP JPKRHRFAMLDKphbvaa19/02/2025 6:39 AM EDT [facility] CMP (CMP) (FOR REMOTE [facility] USE)Evvzafu5205/26/2025 6:39 AM EDT MHPT NDXXVDSYKUGUPdemqrj90/02/2025 6:39 AM EDT ALL CBC WITH AUTO QTZMIpmydme28/02/2025 6:39 AM EDT MHPT QXRNDOJNIOPDTdokjpc17/25/2025 6:34 AM EDT [facility] CMP (CMP) (FOR REMOTE [facility] USE)Gaqccwx5005/19/2025 6:34 AM EDT ALL CBC WITH AUTO QWCOVjucrpw64/25/2025 6:34 AM EDT MHPT HXIUOAQVZSRWWhhjwsk28/22/2025 6:47 AM EDT [facility] CMP (CMP) (FOR REMOTE [facility] USE)Uxcsnee3005/16/2025 6:47 AM EDT ALL CBC WITH AUTO WYCPOvohevg99/22/2025 6:47 AM EDT US ABDOMEN LIMITED BDDEAE2205/12/2025 1:03 PM EDT KHXKOHYYPQPDxmphre89/18/2025 9:36 AM EDT SED RATE BY MODIFIED HOKDVBXOIOLmxtjyv36/18/2025 9:36 AM EDT VIT. B12/FOLATE ZGSILUXEjgtowk63/18/2025 9:36 AM EDT KHLYJDAVBwauicr57/18/2025 9:36 AM EDT SCAN AND OUNEynfcdw79/18/2025 9:36 AM EDT IRON AND TOTAL IRON BINDING OVSALKGXCovkdii15/18/2025 9:36 AM EDT COMPREHENSIVE METABOLIC IXUXVWjtgimo36/18/2025 9:36 AM EDT ALL MISCELLANEOUS JPXQGktcemy94/15/2025 9:02 AM EDT HMHP YSHEUIXLRQZZgbyzot66/15/2025 9:02 AM EDT ALL TYPE AND DVQRQZSwwodzs29/15/2025 9:02 AM EDT METRO IRON AND ACOSRphslmt41/15/2025 9:02 AM EDT [facility] QMIEIOTPHbiwxrg40/15/2025 9:02 AM EDT MHPT MFPHDQYPPEHZXtsgqrd75/15/2025 9:02 AM EDT [facility] CMP (CMP) (FOR REMOTE [facility] USE)Jexmars1605/09/2025 9:02 AM EDT ALL CBC WITH AUTO CTYDCbaalyt52/15/2025 9:02 AM EDT ALL SED HVNZOnooohj85/ 9:02 AM EDT COLONOSCOPY FHNIZNEGQOWtjwswu88/08/2019 2:27 PM ESTfrom Last 3 Months or Most Recently Relevant to Health Maintenance Results * (ABNORMAL) MHPT DIFFERENTIAL (06/08/2025 6:45 AM EDT) Only the most recent of5 resultswithin the time period is included. ComponentValueRef RangeTest MethodAnalysis TimePerformed AtPathologist Signature SEGMENTED NEUTROPHILS % KOGNMV89.0(L)43.0 - 75.0TBHLYMPHOCYTES PERCENT MANUAL 66.0(H)20.5 - 60.0 %TBHMONOCYTES PERCENT MANUAL1.0(L)1.7 - 12.0 %TBHEOSINOPHILS PERCENT MANUAL0.0(L)0.9 - 7.0 %TBHBASOPHILS PERCENT MANUAL0.0(L)0.2 - 2.0 %TBH TBH ATYPICAL LYMPHOCYTES % MANUAL7.0%TBHSEGMENTED NEUT ABSOLUTE MANUAL5.331.4 - 6.5 10 3/uLTBHLYMPHOCYTES ABSOLUTE LGAPXC93.53(H)1.20 - 3.80 10 3/uLTBHMONOCYTES ABSOLUTE MANUAL0.20(L)0.30 - 0.80 10 3/uLTBHEOSINOPHILS ABSOLUTE MANUAL0.000.00 - 0.70 10 3/uLTBHBASOPHILS ABS MANUAL0.000.00 - 0.10 10 3/uLTBHATYPICAL LYMPHOCYTES ABS MAN1.43TBHSMUDGE CELLSSEENTBHSpecimen (Source)Anatomical Location / LateralityCollection Method / VolumeCollection TimeReceived Time 06/08/2025 6:45 AM EDT1 6:46 AM EDT Narrative [facility] - 06/08/2025 9:23 AM EDT Authorizing ProviderResult TypeResult StatusGeneric External Data Provider CLINISYNCFinal ResultPerforming OrganizationAddressCity/State/ZIP CodePhone Number [facility] TBH * (ABNORMAL) HMHP HAPTOGLOBIN (06/08/2025 6:45 AM EDT) Only the most recent of3 resultswithin the time period is included. ComponentValueRef RangeTest MethodAnalysis TimePerformed AtPathologist Signature HAPTOGLOBIN<10(A)32 - 363 mg/dLTBHComment: Performed at: ??CB - [facility] [address], [place], [place] ??[id number] Timing Inspector: Chad Mccall PhD, Phone: ??[phone] Specimen (Source)Anatomical Location / LateralityCollection Method / Volume Collection TimeReceived Time06/08/2025 6:45 AM EDT1 6:46 AM EDT Narrative [facility] - 06/09/2025 6:10 AM EDT Authorizing ProviderResult TypeResult StatusGeneric External Data Provider CLINISYNCFinal ResultPerforming OrganizationAddressCity/State/ZIP CodePhone Number [facility]NC TB[facility] * (ABNORMAL) [facility] CMP (CMP) (FOR REMOTE [facility] USE) (06/08/2025 6:45 AM EDT) Only the most recent of5 resultswithin the time period is included. ComponentValueRef RangeTest MethodAnalysis TimePerformed AtPathologist Signature DPMXTN987983 - 145 mmol/LTBHPOTASSIUM3.53.5 - 5.1 mmol/NSUKTSSBXBVQ03464 - 107 mmol/LTBHCARBON TTPVMFP43.3(H)21.0 - 32.0 mmol/LTBHANION GAP11.3ISOIRJEZXI8732 - 106 mg/dLTBHBLOOD UREA VLSJAKIP21.0(H)7.0 - 18.0 mg/dLTBHCREATININE0.880.70 - 1.30 mg/dLTBHTBH EGFR-AF BRITISH>60>=60 mL/min/1.73m 2TBHTBH EGFR-NON AF BRITISH>60>=60 mL/min/1.73m 2TBHBUN CREATININE RATIO26.0ZPGOGOOIVG0.4(L)8.5 - 10.1 mg/dLTBHBILIRUBIN TOTAL2.0(H)0.2 - 1.0 mg/dLTBHASPARTATE AMINO TRANSFERASE 3015 - 37 U/LTBHALANINE OQYWHGNCLGAKLXKF5227 - 63 U/LTBHALKALINE VTQIXBIRUJA4646 - 116 U/LTBHTOTAL PROTEIN6.2(L)6.4 - 8.2 g/dLTBHALBUMIN LEVEL3.53.4 - 5.0 g/dL TBHGLOBULIN2.7g/dLTBHALBUMIN GLOBULIN RATIO1.3TBHSpecimen (Source)Anatomical Location / LateralityCollection Method / VolumeCollection TimeReceived Time 06/08/2025 6:45 AM EDT1 6:46 AM EDT [facility]ative [facility] - 06/08/2025 8:05 AM EDT Authorizing ProviderResult TypeResult StatusGeneric External Data Provider CLINISYNCFinal ResultPerforming OrganizationAddressCity/State/ZIP CodePhone Number CLINISYMO TB * (ABNORMAL) ALL L[facility] (06/08/2025 6:45 AM EDT)ComponentValueRef RangeTest Method Analysis TimePerformed AtPathologist SignatureLACTATE CSYMERXFJUZAB516(H)85 - 227 U/LTBHSpecimen (Source)Anatomical Location / LateralityCollection Method / VolumeCollection TimeReceived Time06/08/2025 6:45 AM EDT1 6:46 AM EDT Narrative [facility] - 06/08/2025 8:05 AM EDT Authorizing ProviderResult TypeResult StatusGeneric External Data Provider CLINISYNCFinal ResultPerforming OrganizationAddressCity/State/ZIP CodePhone Number [facility] * (ABNORMAL) ALL CBC WITH AUTO DIFF (06/08/2025 6:45 AM EDT) Only the most recent of5 resultswithin the time period is included. ComponentValueRef RangeTest MethodAnalysis TimePerformed AtPathologist Signature TBH WBC20.5(H)4.0 - 11.0 10 3/uLTBHTBH RBC3.60(L)4.70 - 6.10 10 6/uLTBHTBH HGB 12.6(L)14.0 - 18.0 g/dLTBHTBH HCT37.3(L)42.0 - 54.0 %TBHTBH VKM654.6(H)80.0 - 94.0 fLTBHTBH MCH35.0(H)25.9 - 34.0 pgTBHTBH MCHC33.829.9 - 35.2 g/dLTBHTBH RDW 13.011.0 - 15.0 %TBHTBH XXO983(L)150 - 450 10 3/uLTBHTBH MPV8.9(L)9.5 - 13.5 fL TBHSpecimen (Source)Anatomical Location / LateralityCollection Method / Volume Collection TimeReceived Time06/08/2025 6:45 AM EDT1 6:46 AM EDT Narrative [facility] - 06/08/2025 9:23 AM EDT Authorizing ProviderResult TypeResult StatusGeneric External Data Provider CLINISYNCFinal ResultPerforming OrganizationAddressCity/State/ZIP CodePhone Number [facility] TB[facility] * US abdomen limited spleen (05/12/2025 1:03 PM EDT)Anatomical RegionLaterality ModalityAbdomen, SpleenUltrasoundSpecimen (Source)Anatomical Location / LateralityCollection Method / VolumeCollection TimeReceived Time05/12/2025 1:03 PM EDT Impressions 05/12/2025 1:10 PM EDT Splenomegaly. ?? Impression dictated by: Joey Curry M.D. ??05/12/2025 1:08 PM ? Dictation Location: RADIO-PC-16 ? Tech: Caterina Aguirre ? Transcribed By: ? PWS ?05/12/25 1308 ? Dictated By: ?Joey Curry DO ?05/12/25 1303 ? Signed By: <Electronically signed by Joey Curry, DO in OV> ? 05/12/25 1308 Narrative 05/12/2025 1:10 PM EDT [facility] ?[facility] [address] [place] ?[address] ? [place] [address] ? Ultrasound Report ? Signed ? Patient: Rl,Yuri S ?MR#: [id number] ?? 10 ? : 1960 ?Acct:[id number] ? Age/Sex: 64 / M ?ADM Date: 05/12/25 ? Loc: XT ?Room: ?Type: REG RCR ?? Attending Dr: Christian Carlos II DO ? Ordering Provider: Christian Carlos II, DO ?? Date of Service: 05/12/25 ?? US/US spleen: D72.820 - Lymphocytosis (symptomatic) ? Copies to: Christian Carlos II, DO ? Ultrasound of the spleen ? No priors. ? HISTORY: Lymphocytosis. ??Lymphocytic leukemia. ??Abdominal pain. ? The spleen measures 15.6 x 7.7 x 15.9 cm. ??No splenic lesion. ??No perisplenic abnormality. ? US/US spleen ?? Procedure Note Radiology, Radiologist, - 05/12/2025 [facility] [place] [address] Ultrasound Report Signed Patient: Yuri Shine [facility]#: [id number] 10 : 1960Acct:[id number] Age/Sex: 64 / MADM Date: 05/12/25 Loc: XT Room:Type: REG RCR Attending Dr: Christian Carlos II, DO Ordering Provider: Christian Carlos II, DO Date of Service: 05/12/25 US/US spleen: D72.820 - Lymphocytosis(symptomatic) Copies to: Christian Carlos II, DO Ultrasound of the spleen No priors. HISTORY: Lymphocytosis. Lymphocytic leukemia. Abdominal pain. The spleen measures 15.6 x 7.7 x 15.9 cm. No splenic lesion. Noperisplenic abnormality. US/US spleen IMPRESSION: Splenomegaly. Impression dictated by: Joey Curyr M.D. 05/12/2025 1:08 PM Dictation Location: [place] [address] Tech: Caterina Aguirre Transcribed By: PWS 05/12/25 1308 Dictated By: Joey Curry DO 05/12/25 1303 Signed By: <Electronically signed by Joey Curry DO in OV> 05/12/25 1308 Authorizing ProviderResult TypeResult StatusTimmoise Guillermo Carlos [facility] US PROCEDURESFinal Result * (ABNORMAL) SCAN AND CBC (05/12/2025 9:36 AM EDT)ComponentValueRef RangeTest MethodAnalysis TimePerformed AtPathologist KdktaekzaZEP24.7(H)4.1 - 10.5 [CFU]/mL05/12/2025 10:33 AM [facility] CtrUNCORRECTED WHITE BLOOD COUNT24.7(H)4.1 - 10.5 10*3/uL05/12/2025 10:33 AM [facility] CtrRBC2.39(L)3.90 - 5.60 10*6/uL05/12/2025 10:33 AM [facility] CtrHEMOGLOBIN8.9(L)13.0 - 17.0 g/dL05/12/2025 10:33 AM [facility] CfmFIXJNOMNED73.6(L)38.8 - 50.0 %05/12/2025 10:33 AM [facility] FtjFHH354.3(H)83.5 - 101 fL05/12/2025 10:33 AM [facility] CwbBPN82.3(H)27.5 - 35.2 pg05/12/2025 10:33 AM [facility] VkePXNB62.532.5 - 35.6 g/dL05/12/2025 10:33 AM [facility] CtrRED CELL DISTRIBUTION WIDTH, RDW16.6(H) 12.0 - 14.8 %05/12/2025 10:33 AM [facility] CtrPLATELET BKKSX798384 - 450 10*3/uL09/ 10:33 AM [facility] Ctr MEAN PLATELET VOLUME, MPV7.06.6 - 10.1 fL05/12/2025 10:33 AM [facility] CtrNEUTROPHILS, %22.4. %05/12/2025 11:09 AM [facility] CtrLYMPHOCYTES, %74.6. %05/12/2025 11:09 AM [facility] CtrMONOCYTE/MACROPHAGE, %2.6. %05/12/2025 11:09 AM [facility] CtrEOSINOPHILS, %0.1. %05/12/2025 11:09 AM [facility] CtrBASOPHILS, %0.3. %05/12/2025 11:09 AM [facility] CtrNRBC0.10 - 0.5 /100{WBC}05/12/2025 11:09 AM [facility] CtrNEUTROPHILS5.51.8 - 7.7 10*3/05/12/2025 11:09 AM [facility] XzwOTYLFJQCYWX53.5(H)1.00 - 4.8 10*3/uL 05/12/2025 11:09 AM [facility] CtrMONOCYTES0.60.0 - 0.8 10*3/05/12/2025 11:09 AM [facility] CtrEOSINOPHILS0.00.0 - 0.45 10*3/uL05/12/2025 11:09 AM [facility] CtrBASOPHILS 0.10.0 - 0.2 10*3/uL05/12/2025 11:09 AM [facility] Ctr WABIUZHIFFCNWObrpfysu43/18/2025 11:09 AM [facility] Ctr MOZQAMVAJTJPXVwxupg31/18/2025 11:09 AM [facility] Ctr HJGXNACCBOELJbsqio17/18/2025 11:09 AM [facility] Ctr GKXFDPHXLGOUNwspzt80/18/2025 11:09 AM [facility] CtrTEAR DROP RYYQYRftqst68/18/2025 11:09 AM [facility] CtrPLATELET MAZVZVCQSohupeCfghdm50/18/2025 11:09 AM [facility] Ctr PLATELET VUYRPLYOAHQpvgvvQixzcy53/18/2025 11:09 AM [facility] CtrSpecimen (Source)Anatomical Location / LateralityCollection Method / VolumeCollection TimeReceived TimeBlood (Blood)05/12/2025 9:36 AM EDT 05/12/2025 9:36 AM EDT Narrative Authorizing ProviderResult TypeResult StatusTimmoise Li Devanteanjum [facility] BLOOD ORDERABLESFinal ResultPerforming OrganizationAddressCity/State/[facility] CodePhone Number [facility] [address] [place] [address], [facility] [address] [place] [address] * VIT. B12/FOLATE PROFILE (05/12/2025 9:36 AM EDT)ComponentValueRef RangeTest MethodAnalysis TimePerformed AtPathologist SignatureVITAMIN [id number] - 914 pg/mL05/12/2025 11:18 AM [facility] AcuQQQPKE26.3>5.9 ng/mL 05/12/2025 11:17 AM [facility] CtrComment: Folate reference range: >5.9 ng/ml The WHO technical consultation on folate and vitamin b12 deficiencies has determined that folate concentrations less than 4 ng/ml are considered deficient. Specimen (Source)Anatomical Location / LateralityCollection Method / Volume Collection TimeReceived TimeOtherTopography unknown / Ghbbwvl3605/12/2025 9:36 AM EDT05/12/2025 9:36 AM EDT Narrative Authorizing ProviderResult TypeResult StatusTimmoise Carlos [facility] BLOOD ORDERABLESFinal ResultPerforming OrganizationAddressty/State/ZIP CodePhone Number [facility] [address] [place] [address], [facility] [address] [place] [address] * Iron and TIBC (05/12/2025 9:36 AM EDT)ComponentValueRef RangeTest Method Analysis TimePerformed AtPathologist LuacwtsmrJCVL13024 - 212 ug/dL05/12/2025 10:52 AM [facility] CtrTOTAL IRON BINDING WALOEHUR126565 - 450 ug/dL05/12/2025 10:52 AM [facility] Ctr% IRON KBZZHLYBDQ32.220 - 50 %05/12/2025 10:52 AM [facility] Ctr PKAAQRRMPDD744931 - 362 mg/dL05/12/2025 10:52 AM [facility] CtrSpecimen (Source)Anatomical Location / LateralityCollection Method / VolumeCollection TimeReceived TimeOtherTopography unknown / Qviukdo5905/12/2025 9:36 AM EDT05/12/2025 9:36 AM EDT Narrative Authorizing ProviderResult TypeResult StatusChristian Lowanjum [facility] BLOOD ORDERABLESFinal ResultPerforming OrganizationAddressCity/State/ZIP CodePhone Number [facility] [address] [place] [address], [facility] [address] [place] [address] * Sedimentation rate, automated (05/12/2025 9:36 AM EDT)ComponentValueRef Range Test MethodAnalysis TimePerformed AtPathologist SignatureERYTHROCYTE SEDIMENTATION RATE<10 - 19005/12/2025 11:18 AM [facility] CtrSpecimen (Source)Anatomical Location / LateralityCollection Method / Volume Collection TimeReceived TimeBlood (Blood)05/12/2025 9:36 AM EDT05/12/2025 9:36 AM EDT Narrative Authorizing ProviderResult TypeResult StatusTimmoise Goldomar [facility] BLOOD ORDERABLESFinal ResultPerforming OrganizationAddressCity/State/ZIP CodePhone Number [facility] [address] [place] [address], [facility] [address] [place] [address] * (ABNORMAL) Haptoglobin (05/12/2025 9:36 AM EDT)ComponentValueRef RangeTest MethodAnalysis TimePerformed AtPathologist SignatureHAPTOGLOBIN<30(L)44 - 215 mg/dL05/12/2025 11:59 AM [facility] CtrSpecimen (Source) Anatomical Location / LateralityCollection Method / VolumeCollection Time Received TimeOtherTopography unknown / Gbviqmk9905/12/2025 9:36 AM EDT05/12/2025 9:36 AM EDT Narrative Authorizing ProviderResult TypeResult StatusTimmoise Carlos [facility] BLOOD ORDERABLESFinal ResultPerforming OrganizationAddressty/State/ZIP CodePhone Number [facility] [address] [place] [address], [facility] [address] [place] [address] * Ferritin (05/12/2025 9:36 AM EDT)ComponentValueRef RangeTest MethodAnalysis TimePerformed AtPathologist PbxdojgxsWFGVXCFF368.123.9 - 336.2 ng/mL05/12/2025 11:14 AM [facility] [facility] CtrSpecimen (Source)Anatomical Location / LateralityCollection Method / VolumeCollection TimeReceived Time OtherTopography unknown / Xekhyvh0705/12/2025 9:36 AM EDT05/12/2025 9:36 AM EDT Narrative Authorizing ProviderResult TypeResult StatusTimmoise Carlos [facility] BLOOD ORDERABLESFinal ResultPerforming OrganizationAddressty/[facility]/ZIP CodePhone Number [facility] [address] [place] [address], [facility] [address] [place] [address] * (ABNORMAL) Comprehensive metabolic panel (05/12/2025 9:36 AM EDT)Component ValueRef RangeTest MethodAnalysis TimePerformed AtPathologist SignatureGlucose 8870 - 100 mg/dL05/12/2025 10:52 AM [facility] CtrComment: Random Glucose Reference Range is dependent on time and content of last meal. Glucose of more than 200 mg/dL in a nonstressed, ambulatory subject supports the diagnosis of Diabetes Mellitus. ADA recommended reference range IBG069 - 25 mg/dL05/12/2025 10:52 AM [facility] CtrCREATININE 0.920.70 - 1.30 mg/dL05/12/2025 10:52 AM [facility] Ctr ESTIMATED GFR>60. 10:52 AM [facility] SysNkxmob753 136 - 145 mmol/L05/12/2025 10:52 AM [facility] CtrPotassium, Bld3.63.5 - 5.1 mmol/L05/12/2025 10:52 AM [facility] Ctr Vmzxrkkb62278 - 107 mmol/L05/12/2025 10:52 AM [facility] Ctr Carbon Qcsujoo79.3(H)21.0 - 31.0 mmol/L05/12/2025 10:52 AM [facility] CtrAnion Gap7.36.0 - 15.009 10:52 AM [facility] CtrCalcium8.78.6 - 10.3 mg/dL05/12/2025 10:52 AM [facility] CtrTOTAL PROTEIN5.8(L)6.4 - 8.9 g/dL05/12/2025 10:52 AM [facility] CtrALBUMIN LEVEL4.23.5 - 5.7 g/dL05/12/2025 10:52 AM [facility] CtrGLOBULIN1.6g/dL05/12/2025 10:52 AM [facility] CtrALBUMIN/GLOBULIN RATIO2.609 10:52 AM [facility] CtrBILIRUBIN,TOTAL3.4(H)0.3 - 1.0 mg/dL05/12/2025 10:52 AM [facility] CtrComment: Samples from patients who have taken Naproxen have shown spurious elevation in Total Bilirubin levels. ??A metabolite of Naproxen, O-desmethylnaproxen, has been shown to interfere with the Jenjoryik-Grof method for measuring Total Bilirubin. ASPARTATE AMINO LWBPLRXFRNM4119 - 39 U/L05/12/2025 10:52 AM [facility] CtrALANINE VTEMOCTRQURWODPQ438 - 52 U/L05/12/2025 10:52 AM [facility] CtrALKALINE EVCKBFYZMVR2656 - 104 U/L05/12/2025 10:52 AM [facility] CtrCREATININE CLR CALC CKEQBIZK55.8605/12/2025 10:52 AM [facility] CtrSpecimen (Source)Anatomical Location / LateralityCollection Method / VolumeCollection TimeReceived TimeOther Topography unknown / Gwqkrqc4205/12/2025 9:36 AM EDT05/12/2025 9:36 AM EDT Narrative Authorizing ProviderResult TypeResult StatusTimmoise Carlos DOLAB BLOOD ORDERABLESFinal ResultPerforming OrganizationAddressCity/State/ZIP CodePhone Number [facility] [address] [facility] [place] [address], [facility] [address] [place] [address] * [employer] (05/09/2025 9:02 AM EDT)ComponentValueRef RangeTest Method Analysis TimePerformed AtPathologist SignatureTBH DTCC745.065.0 - 175.0 ug/dL TBHTBH TOTAL IRON BINDING BFFSSUDT516.0250.0 - 450.0 ug/dLTBHTBH PERCENT IRON JZXXSWHSPI22.5%TBHSpecimen (Source)Anatomical Location / LateralityCollection Method / VolumeCollection TimeReceived Time05/09/2025 9:02 AM EDT05/09/2025 9:34 AM EDT Narrative [facility] - 05/09/2025 10:36 AM EDT Authorizing ProviderResult TypeResult StatusGeneric External Data Provider CLINISYNCFinal ResultPerforming OrganizationAddressCity/State/ZIP CodePhone Number [facility] * [facility] (05/09/2025 9:02 AM EDT)ComponentValueRef RangeTest Method Analysis TimePerformed AtPathologist HhhjjxsxqDNQUPNJG843.026.0 - 388.0 ng/mL TBHSpecimen (Source)Anatomical Location / LateralityCollection Method / Volume Collection TimeReceived Time05/09/2025 9:02 AM EDT05/09/2025 9:34 AM EDT Narrative [facility]IN[facility]YMO - 05/09/2025 10:27 AM EDT Authorizing ProviderResult TypeResult StatusGeneric External Data Provider CLINISYNCFinal ResultPerforming OrganizationAddressty/State/ZIP CodePhone Number [facility]NC [facility] * ALL TYPE AND SCREEN (05/09/2025 9:02 AM EDT)ComponentValueRef RangeTest Method Analysis TimePerformed AtPathologist SignatureBLOOD TYPEO PositiveTBHANTIBODY SCREENPOSITIVETBHComment: Sent to Reference Lab, see [facility] report regarding red cell reactivity. ??Subsequent testing will be necessary if transfusion becomes necessary. Specimen (Source)Anatomical Location / LateralityCollection Method / Volume Collection TimeReceived Time05/09/2025 9:02 AM EDT05/09/2025 9:34 AM EDT Narrative [facility] - 05/12/2025 11:43 AM EDT [facility] , ?? Authorizing ProviderResult TypeResult StatusGeneric External Data Provider CLINISYNCEdited Result - FinalPerforming OrganizationAddressCity/State/ZIP Code Phone Number [facility] * ALL SED RATE (05/09/2025 9:02 AM EDT)ComponentValueRef RangeTest Method Analysis TimePerformed AtPathologist SignatureTBH SED RATE<1<=20 mm/hrTBH Specimen (Source)Anatomical Location / LateralityCollection Method / Volume Collection TimeReceived Time05/09/2025 9:02 AM EDT05/09/2025 9:34 AM EDT Narrative [facility] - 05/09/2025 9:56 AM EDT Authorizing ProviderResult TypeResult StatusGeneric External Data Provider CLINISYNCFinal ResultPerforming OrganizationAddressty/State/ZIP CodePhone Number [facility] * ALL MISCELLANEOUS TEST (05/09/2025 9:02 AM EDT)ComponentValueRef RangeTest MethodAnalysis TimePerformed AtPathologist SignatureMISCELLANEOUS TESTCOMMENT. TBHComment: Test Ordered: [id number] Antibody Identification Antibody Id. #1 ?Comment ? CB ?? Reference Range: . The patient's serum reacted with some or all reagent red cells in the antiglobulin phase of testing. No specific antibody pattern was evident. Subsequent testing revealed that the patient's red cells have a positive direct antiglobulin test due to the presence of IgG antibody on the cells. The antibody being detected in the patient's serum may be the same antibody being detected on the patient's red cells. Positive direct antiglobulin tests are associated with a variety of conditions, which include autoimmune hemolytic anemia, hemolytic transfusion reaction and may also be secondary to certain pathological conditions or drug therapy. ??We suggest that additional specimens be referred to the facility at which the patient will receive medical care. If transfusions become necessary, difficulty in crossmatching should be anticipated. DIRECT KANE TEST IS POSITIVE (3+) WITH ANTI-IgG Kane Titer #1 ?OBSERVER GRAVITY PROSPECTING ?[facility] ?? Reference Range: . Antibody Id. #2 ?OBSERVER GRAVITY PROSPECTING ?[facility] ?? Reference Range: . Kane Titer #2 ?OBSERVER GRAVITY PROSPECTING ?[facility] ?? Reference Range: . Performed at: ??CB - [facility] [address] ??[id number] Timing Inspector: Chad Mccall PhD, Phone: ??[phone] Specimen (Source)Anatomical Location / LateralityCollection Method / Volume Collection TimeReceived Time05/09/2025 9:02 AM EDT05/09/2025 10:49 AM EDT Narrative [facility]NC - 05/10/2025 2:08 PM EDT [id number] Antibody Identification Authorizing ProviderResult TypeResult StatusGeneric External Data Provider CLINISYNCFinal ResultPerforming OrganizationAddressCity/State/ZIP CodePhone Number [facility]NC [facility] * COLONOSCOPY DIAGNOSTIC (10/02/2018 2:27 PM EST)Anatomical RegionLaterality ModalityRadiographic Imaging Narrative Authorizing ProviderResult TypeResult StatusUnknown Practice AIMG XR PROCEDURES Final Result from Last 3 Months or Most Recently Relevant to Health Maintenance Insurance Care Teams Team MemberRelationshipSpecialtyStart DateEnd Date Linda Jansen PA [address] [address] [facility] Okiygcla58/13/23
--- OUTSIDE RECORDS SUMMARY | 2025-06-24 06:22 | XMS_ITS | Encounter Summary ---
Author Organization [facility] Address [address] [place] [address] Care Team Providers Care Traveling Sales Executive Name Role Phone Liang Jansen Primary Care Provider [phone] Liang Jansen Unavailable [phone] Encounter Details DateTypeDepartmentCare Team (Latest Contact Info)Ojbvcbpoano70/05/2024Clinisync Result Encounter [facility] Department Unsolicited Liang Jansen PA [address] [facility] [address] [place] [address] Social History Tobacco UseTypesPacks/DayYears UsedDateSmoking Tobacco: NeverSmokeless Tobacco: NeverAlcohol UseStandard Drinks/WeekCommentsYes0 (1 standard drink = 0.6 [...] times a week08/06/2023How often do you attend hindu or hindu services?1 to 4 times per year08/06/2023o you belong to any clubs or organizations such as hindu groups, unions, fraternal or athletic groups, or [...] at all 08/06/2023HQ-2AnswerDate RecordedPatient Health Questionnaire-2 Score0 03/01/2025[facility] [place] [facility] Occup[facility] - Occupational Stress QuestionnaireAnswerDate RecordedDo you feel stress - tense, restless, nervous, or anxious, or unable to sleep at night because yourmind is troubled all the time - these days?Only a ojhjvk1908/06/2023Exercise Vital SignAnswerDate Recorded On average, how many [...] EDTGender IdentityNot on fileSexual OrientationNot on file documented as of this encounter Functional Status * Over the past 2 weeks, how often have you been bothered by any of the following problems?QuestionAnswerDate of AssessmentAuthorLittle interest or pleasure in doing thingsNot at all03/01/2025 9:16 AM Kayla Beckford LPN Feeling down, depressed, or hopelessNot at all03/01/2025 9:16 AM Kayla Beckford LPNPatient Health Questionnaire-2 Ksbnk263 9:16 AM Kayla Beckford LPN documented as of this encounter Plan of Treatment Not on file documented as of this encounter Procedures Procedure NamePriorityDate/TimeAssociated DiagnosisCommentsXR THORACIC SPINE 3V 06/29/2024 3:01 PM EST documented in this encounter Results * XR THORACIC SPINE 3V (06/29/2024 3:01 PM EST)Anatomical RegionLaterality ModalityOtherSpecimen (Source)Anatomical Location / LateralityCollection Method / VolumeCollection TimeReceived Time06/29/2024 3:01 PM EST Narrative 06/29/2024 3:03 PM EST [facility] ?[address] ? [place] [address] ?XRay Report ? Signed ? Patient: SOTO,YURI S ?MR#: [id number] ?? : 1960 ?Acct:[id number] ?? Age/Sex: 63 / M ?ADM Date: 06/28/24 ?? Loc: RAD ? Attending Dr: LIANG JANSEN ? Ordering Physician: LIANG JANSEN ?? Date of Service: 06/28/24 ?? Procedure(s): XR thoracic spine 3V ?? Accession Number(s): [id number] ? cc: LIANG JANSEN ? [facility] ? [address] ? [place] [address] ? Patient Name: ?? YURI VALERA ? MRN: [facility]:[id number] ? date: 1960 ?Sex: M ?? Assigned Patient Location: RAD ?? Current Patient Location: ? Accession/Order Number: [id number] ?? Exam Date: 06/28/2024 ??17:55 ?Report Date: 06/29/2024 ??15:01 ? At the request of: ?? LIANG JANSEN ? Procedure: ??XR thoracic spine 3V ? EXAMINATION: XR thoracic spine 3V ? HISTORY: strain of thoracic back region (S29.012A) ? COMPARISON: No relevant comparison available. ? FINDINGS: ?? BONES: Normal alignment with no acute fracture or spondylolisthesis. Mild to ?? moderate spondylosis. Mild facet osteoarthropathy ?? DISC SPACES: Normal. No significant disc height narrowing, subluxation, or ?? endplate abnormality. ?? PARASPINOUS: Negative. No paraspinous abnormality is seen. ?? OTHER: Negative. ? XR/XR thoracic spine 3V ?? IMPRESSION: ? Mild to moderate degenerative change ? Electronically authenticated by: KIRSTIE ??WEST ?? Date: 06/29/2024 ??15:01 ? Dictated By: ?Kirstie Dodd M.D. ? Signed By: ?06/29/24 1503 ? DD/ 1501 ? TD/TT: ? Director Account Management: Procedure Note Radiology, Radiologist, MD - 06/29/[address] [address] XRay Report Signed Patient: YURI VALERA [facility]#: [id number] : 1960Acct:[id number] Age/Sex: 63 / MADM Date: 06/28/24 Loc: RAD Attending Dr: LIANG JANSEN Ordering Physician: LIANG JANSEN Date of Service: 06/28/24 Procedure(s): XR thoracic spine 3V Accession Number(s): [id number] cc: LIANG JANSEN [place] [id number] Patient Name: YURI VALERA MRN: [facility]:[id number] date: 1960 Sex: M Assigned Patient [facility]: [facility] Current Patient Location: Accession/Order Number: [id number] Exam Date: 06/28/2024 17:55 Report Date: 06/29/2024 [...] M.D. Signed By:06/29/24 1503 DD/ 1501 TD/TT: Director Account Management: Authorizing ProviderResult TypeResult StatusLiang Jansen [facility] Final Result documented in this encounter Visit Diagnoses Not on filedocumented in this encounter Care Teams Team MemberRelationshipSpecialtyStart DateEnd Date Liang Jansen PA [address] [address] PCP - GeneralFamily Survtjxz77/13/23 Liang Jansen PA [address] [place] [address] PCP - Medical [place] [employer]/09/18documented as of this encounter
--- OUTSIDE RECORDS SUMMARY | 2025-06-24 06:22 | XMS_ITS | Clinical Summary ---
Author Organization [facility] Address [address] [place] [address] Phone Care Team Providers Care Metal Pattern Maker Name Role Phone Vivien Ye MD Primary Care Provider Social History Tobacco UseTypesPacks/DayYears UsedDateSmoking Tobacco: Never AssessedSex and Gender InformationValueDate RecordedSex Assigned at BirthNot on fileLegal Sex Male07/19/2022 8:47 AM ESTGender IdentityNot on fileSexual OrientationNot on file Last Filed Vital Signs Vital SignReadingTime TakenCommentsBlood Mkvspadr065/8401 2:04 PM EST Prtnb862209/12/2021 2:04 PM ESTTemperature--Respiratory Rate--Oxygen Saturation-- Inhaled Oxygen Concentration--Liumme77.1 kg (203 lb)09/12/2021 2:04 PM ESTHeight 182.9 cm (6')09/12/2021 2:04 PM ESTBody Mass Index27.5301 2:04 PM EST Plan of Treatment Not on file Care Teams Team MemberRelationshipSpecialtyStart DateEnd Date Vivien Ye MD [address] [place] [address] PCP - General03/22/20
--- OUTSIDE RECORDS SUMMARY | 2025-06-24 06:22 | XMS_ITS | Patient Health Record ---
Author Organization [facility] [place] Address [address] [place] [address] Care Team Providers Care Hearings Reporter Name Role Phone Vivien Ye MD Primary Care Provider Unavailabl e Allergies No Known Allergies Reason For Referral No Information Medications Medication SIG (Take, Route, Frequency, Duration) Notes Start Date End Date Status Valsartan ActiveNifedipineActiveMeloxicam 15 MG1 tablet Orally Once a day; Duration: 30 days01/22/2023Not-TakingEliquisActiveDoxazosin MesylateActive Social History Tobacco Use: Social History Observation Description Date Details (start date - stop date) Never Smoker NA - NA Tobacco Use/Smoking Question Answer Notes Patient is a nonsmoker Problems Problem Type SNOMED Code ICD Code Onset Dates Problem Status W/U Status Risk Notes Problem Localized, primary o steoarthritis of the ankle and/or foot (064563347) Primary osteoarthritis, 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
[2025-06-24 06:46] LABS: Hematocrit 38.4 % (42.0-54.0); Hemoglobin 13.1 g/dL (14.0-18.0); Mean Corpuscular HGB Conc 34.1 g/dL (29.9-35.2); Mean Corpuscular Hemoglobin 34.3 pg (25.9-34.0); Mean Corpuscular Volume 100.5 fL (80.0-94.0); Platelet Count 142 10^3/uL (150-450); Red Blood Count 3.82 10^6/uL (4.70-6.10); White Blood Count 23.8 10^3/uL (4.0-11.0)
[2025-06-24 07:20] LABS: Alanine Aminotransferase 43 U/L (16-63); Albumin Globulin Ratio 1.4; Albumin Level 3.5 g/dL (3.4-5.0); Alkaline Phosphatase 65 U/L (46-116); Anion Gap 11.4; Aspartate Amino Transferase 23 U/L (15-37); Blood Urea Nitrogen 23.0 mg/dL (7.0-18.0); Calcium 8.7 mg/dL (8.5-10.1); Carbon Dioxide 31.2 mmol/L (21.0-32.0); Chloride 102 mmol/L (98-107); Estimated GFR (African America >60 (>=60 mL/min/1.73m^2); Estimated GFR (Non-African Ame >60 (>=60 mL/min/1.73m^2); Globulin 2.5 g/dL; Glucose 82 mg/dL (74-106); Potassium 3.6 mmol/L (3.5-5.1); Sodium 141 mmol/L (136-145); Total Protein 6.0 g/dL (6.4-8.2)
[2025-06-24 07:38] LABS: Atypical Lymphocytes % Manual 1.0 %; Atypical Lymphocytes Abs Man 0.23; Basophils Abs Manual 0.00 10^3/uL (0.00-0.10); Basophils Percent Manual 0.0 % (0.2-2.0); Eosinophils Absolute Manual 0.23 10^3/uL (0.00-0.70); Eosinophils Percent Manual 1.0 % (0.9-7.0); Lymphocytes Absolute Manual 15.94 10^3/uL (1.20-3.80); Lymphocytes Percent Manual 67.0 % (20.5-60.0); Monocytes Absolute Manual 0.47 10^3/uL (0.30-0.80); Monocytes Percent Manual 2.0 % (1.7-12.0); Segmented Neut Absolute Manual 6.90 10^3/uL (1.4-6.5); Segmented Neutrophils % Manual 29.0 (43.0-75.0); Smudge Cells SEEN
== END 2025-06-24 06:18 | disposition home or self-care (01) ==
LOC: LAB 06:18
PROVIDERS: PCP Physician Assistant; Visit Provider Internal Medicine
DX: D59.10 Autoimmune hemolytic anemia, unspecified (principal); C91.10 Chronic lymphocytic leukemia of B-cell type not having achieved remission
CPT/HCPCS: 36415; 80053; 83010; 83615; 85007; 85027

== ENCOUNTER 2025-07-07 06:13 | Outpatient (OUT) | payer MEDICARE, SELFPAY ==
--- OUTSIDE RECORDS SUMMARY | 2025-07-07 06:20 | XMS_ITS | CCD ---
Author Organization [facility] Care Team Providers Care [employer] Supervisor Name Role Phone Sedrick Ye Unavailable Unavailable Unavailable Unavailable Primary Care Provider Ita Sandra MD Unavailable Ita Tuttle MD Unavailable [phone] Ita Tuttle MD Unavailable [phone] ITA TUTTLE Referring Unavailable YE ., [...] Iesha Gamino Attending Unavailable Lue, Iesha M. Referring Unavailable MD Sedrick Ye Primary Care Provider [phone] DO Christian Carlos II Attending Provider Hemmer, TERMINATION CLERK-C Linda Referring Provider [phone] MD Sedrick Ye Primary Care Provider Breanna IIDO Christian Attending Provider Hemmer, TERMINATION CLERK-C Linda Referring Provider Hemmer Linda PIEDRA Primary Care Provider Hemmer Linda PIEDRA Unavailable Sedrick Ye MD Primary Care Provider Christian Carlos DO Attending Provider Hemmer TERMINATION CLERK-C, Linda Referring Provider [phone] NON STAFF Primary Care Provider UnavailLino Seo [facility] Russell CAMACHO Attending Provider Christian Carlos DO Attending Provider Hemmer TERMINATION CLERK-C, Linda Primary Care Provider [phone] Hannah Queen APRN Attending Provider Sedrick Ye MD Primary Care Provider Hemmer TERMINATION CLERK-CLinda Referring Provider LINDA JANSEN Attending Unavailable BROWN, EULALIO A Referring Unavailable BROWN, EULALIO A Attending Unavailable BROWN, EULALIO A Referring Unavailable BROWN, EULALIO A Referring Unavailable BROWN, EULALIO A Attending Unavailable MAHAMED, EULALIO A Referring Unavailable GRACE HONEYCUTT Attending Unavailable LINDA JANSEN Referring Unavailable SEDRICK LYONS Attending Unavailable BUCIO V GRACE Attending Unavailable BROWN, EULALIO A Attending Unavailable BROWN, EULALIO A Referring Unavailable BROWN, EULALIO A Attending Unavailable BROWN, EULALIO A Referring Unavailable LINDA JANSEN Attending Unavailable MAHAMED, EULALIO A Attending Unavailable LINDA JANSEN Attending Unavailable BROWN, EULALIO A Referring Unavailable BROWN, EULALIO A Referring Unavailable BROWN, EULALIO A Referring Unavailable BROWN, EULALIO A Attending Unavailable BROWN, EULALIO A Referring Unavailable Hemmer TERMINATION CLERK-C, Linda Primary Care Provider Christian Carlos DO Attending Provider [phone] Killian LYON-Gracie Long Attending Provider Inderjit TERMINATION CLERK-C, Linda Referring Provider [phone] Hemjhonatan TERMINATION CLERK-C, Linda Primary Care Provider Inderjit TERMINATION CLERK-C, Linda Referring Provider [phone] Linda Jansen Primary Care Unavailable Christian Carlos II Admitting Unavaila ble Adamowicz II, Christian Li Attending Unavaila ble NON STAFF Primary Care Unavailable Hannah Queen Admitting Unavailable Hannah Queen Attending Unavailable Linda Jansen Primary Care Unavailable Linda Jansen Referring Unavailable Breanna IIChristian Admitting Unavaila ble Devanteicz II, Christian Li Attending Unavaila ble NON STAFF [facility] Attending Unavailable ITA TUTTLE Referring Unavailable TONY ARMSTRONG Attending Unavaila ble ITA TUTTLE Attending Unavailable ITA TUTTLE Referring Unavailable Hemmer Linda PIEDRA Unavailable Medications Current Medications MedicationDrug Class(es)DatesSig (Normalized)Sig (Original)amoxicillin 875 mg / clavulanate 125 mg oral tablet (2 sources)Penicillin-class AntibacterialStart: 09-15-2024 End: 00-21-8905qici 1 tablet by mouth in the morningamoxicillin-clavulanate [...] oral capsule (2 sources)Non-narcotic AntitussiveStart: 09-29-2024 End: 56-63-8161gffc 1 capsule by mouth three times daily as needed for cough benzonatate (Tessalon) 200 MG capsule Indications: Acute cough Take 1 capsule (200 mg) by mouth 3 (three) times a day as needed for cough for up to 7 days Do not crush or chew. 21 capsule 09/29/2024 10/06/2024 Activecelecoxib 200 mg oral capsule (10 sources)Nonsteroidal Anti-inflammatory DrugStart: 10-28-2024 End: 22-51-0323nacb 1 capsule by mouth once dailycelecoxib (CeleBREX) 200 MG capsule Indications: S/P right knee arthroscopy Take 1 capsule (200 mg)by mouth Daily 30 capsule 1 10/28/2024 12/27/2024 ActiveStart: 08-13-2024 End: 23-99-0603eqbq 1 capsule by mouth in the morning [...] oral tablet (20 sources)alpha-Adrenergic BlockerStart: 05-25-2023 End: 83-17-5547mefm 1 tablet by mouth at bedtimedoxazosin (Cardura) 4 MG tablet Take 1 tablet by mouth at bedtime 05/25/2023 ActiveStart: 01-17-2023 End: 06-61-9758wgmp 1.5 tablets by mouth once daily at bedtimedoxazosin (CARDURA) 2 mg tablet Take 1.5 tablets by mouth daily at bedtime. 135 tablet 1 2/02/2023 DiscontinuedStart: 30-21-0305adhm 1 tablet by mouth once daily at bedtimedoxazosin (CARDURA) 2 mg tablet Take 1 tablet by mouth daily at bedtime. 90 tablet 1 12/25/2022 ActiveStart: 09-13-2022 End: 74-20-2381emci 1 tablet by mouth once daily at bedtimedoxazosin (CARDURA) 1 mg tablet TAKE 1 TABLET BY MOUTH EVERYDAY AT BEDTIME 90 tablet 3 10/08/2022 DiscontinuedComment on above:Take 1 tablet by mouth daily at bedtime. TAKE 1 TABLET BY MOUTH EVERYDAY AT BEDTIMETake 1.5 tablets by mouth daily at bedtime.doxepin hydrochloride 10 mg oral capsule (5 sources)Tricyclic Antidepressant End: 49-28-4673sagquel (SINEquan) 10 MG capsule Take 10 mg by mouth as needed at bedtime for sleep 05/21/2024 Discontinuedfolic acid 1 mg oral tablet (2 sources)Start: 32-16-5050cpjg 1 tablet by mouth once dailyhydroCHLOROthiazide 25 mg / valsartan 320 mg oral tablet (20 sources)Thiazide Diuretic, Angiotensin 2 Receptor BlockerStart: 05-13-2025 take 1 tablet by mouth once dailyStart: 05-04-2020 End: 61-05-1243dupw 1 tablet by mouth once daily in [...] mg oral tablet (20 sources)Start: 09-12-2023 End: 18-71-2431nvfw 1 tablet by mouth once dailyComment on above:Take 1 tablet by mouth once daily.24 hr NIFEdipine 30 mg extended release oral tablet (20 sources)Dihydropyridine Calcium Channel BlockerStart: 35-87-1546qzrb 1 tablet by mouth once dailyNIFEdipine XL (ADALAT CC) 30 mg 24 hr tablet Indications: Hypertension, unspecified type Take 1 tablet by mouth once daily. 90 tablet 3 01/03/2025 ActiveStart: 12-20-2021 End: 34-96-5889qjfc 1 tablet by mouth once dailyNIFEdipine XL (ADALAT CC) 30 mg 24 hr tablet Indications: Hypertension, unspecified type take one tablet by mouth daily 90 tablet 3 01/05/2024 01/01/2025 DiscontinuedStart: 41-44-2144jpir 1 tablet by mouth once dailyStart: 36-61-7471nzvr 1 tablet by mouth twice daily Nifedipine [...] mL injection (DEFINITY) (20 sources)Start: 01-17-2023 End: 33-07-5298dqlhswoewj lipid microspheres 1.3 mL in NaCl (PF) 0.9% 10 mL injection (DEFINITY)Start: 12-12-2021 End: 01-68-7820shrhwpxlqw lipid microspheres 1.3 mL in NaCl (PF) 0.9% 10 mL injection (DEFINITY)predniSONE 20 mg oral tablet (17 sources)Start: 05-06-2025 End: 94-15-5240peqg 4 tablets by mouth once dailyStart: 78-51-7524vzhzmhMWES (Deltasone) 10 MG tablet Indications: Right knee pain, unspecified chronicity As directed orally - Take 6 tabs day 1 and 2, 5 tabs day 3 and 4, 4 tabs day 5 and 6, 3 tabs day 7 and 8, 2 tabs day 9 and 10, and 1 tab day 11 and 12. 42 tablet 09/30/2024 ActiveStart: 06-10-2024 End: 46-26-0775bkudekKKSS (Deltasone) 20 MG tablet Indications: Strain of thoracic back region 3 tabs x 2 days, 2 tabs x 2 days, 1 1/2 tab x 2 days, 1 tab x 2 days, 1/2 tab x 2 days, then stop 16 tablet 06/10/2024 07/27/2024 Discontinued (Therapy completed)125 ml sodium chloride 9 mg/ml prefilled syringe (20 sources)Start: 12-12-2021 End: 26-77-9462oigtok chloride 0.9 % (flush) 10 mL (BD POSIFLUSH)valsartan 320 mg oral tablet (15 sources)Angiotensin 2 Receptor BlockerStart: 03-01-2025 End: 59-19-7612asxf 1 tablet by mouth once dailyvalsartan (Diovan) 320 MG tablet Indications: Primary hypertension TAKE 1 TABLET BY MOUTH EVERY DAY90 tablet 1 03/23/2025 Active Completed/Discontinued Medications MedicationDrug Class(es)DatesSig (Normalized)Sig (Original)acetaminophen 325 mg / HYDROcodone bitartrate 5 mg oral tablet (8 sources)Opioid AgonistStart: 07-14-2020 End: 83-18-0304zgcd 1 tablet by mouth every four to six hours as needed for pain Hydrocodone-Acetaminophen (Miltona) 5-325 mg tablet Discontinued 1 - 2 TAB PO EVERY 4-6 HOURS as needed for Pain 22 12July 14, 2020 August 28, 2021 3:10pmapixaban 5 mg oral tablet (20 sources)Factor Xa InhibitorStart: 05-04-2020 End: 76-97-2299ykaa 1 tablet by mouth twice dailyApixaban (Eliquis) 5 mg Tablet Discontinued 5 MG PO Twice daily May 04, 2020 12:00am January 23, 2024 2:05pmComment on above:Take by mouth twice daily.Take 1 tablet by mouth twice daily.aspirin 81 mg delayed release oral tablet (20 sources)Platelet Aggregation Inhibitor, Nonsteroidal Anti-inflammatory Drug Start: 07-30-2013 End: 45-79-3752bhuk 1 tablet by mouth once dailyAspirin 81 mg Tablet,Delayed Release (Dr/Ec) Discontinued 81 MG PO Daily October 02, 2018 1:00am May 04, 2020 8:52amComment on above:Take 81 mg by mouth.betamethasone 3 mg/ml / betamethasone acetate 3 mg/ml injectable suspension (4 sources)CorticosteroidStart: 09-30-2024 End: 94-05-7399aelzilzvecatx acetate-betamethasone sodium phosphate (Celestone) injection 1.5 mgStart: 09-30-2024 End: .5 mg, Intra-articular, Once PRN Procedure, Starting on Pascale 09/30/24 at 1629, For 1 dosedoxycycline hyclate 100 mg oral tablet (8 sources)Tetracycline-class DrugStart: 07-14-2020 End: 58-35-3119dnpm 1 tablet by mouth twice dailyDoxycycline Hyclate 100 mg tablet Discontinued 100 MG PO Twice daily 10 July 14, 2020 1:00am August 28, 2021 3:10pmfurosemide 40 mg oral tablet (20 sources)Loop DiureticStart: 07-06-2020 End: 48-17-7160lgdm 1 tablet by mouth once daily in the morningFurosemide 40 mg tablet Discontinued 40 MG PO Every morning July 06, 2020 1:00am January 23, 2024 2:06pmStart: 05-04-2020 End: 36-75-2578kzms 1 tablet by mouth twice dailyFurosemide 20 [...] oral capsule (5 sources)Anti-epileptic AgentStart: 09-30-2024 End: 83-41-7653lvin 1 capsule by mouth at bedtimegabapentin (Neurontin) 300 MG capsule Indications: S/P right knee arthroscopy Take 1 capsule (300 mg) by mouth at bedtime 30 capsule 09/30/2024 12/09/2024 Discontinued (Therapy completed) hydroCHLOROthiazide 25 mg / losartan potassium 100 mg oral tablet (8 sources)Thiazide Diuretic, Angiotensin 2 Receptor BlockerStart: 10-02-2018 End: 61-54-8070xbls 1 tablet by mouth once dailyLosartan-Hydrochlorothiazide 100-25 mg tablet Discontinued 1 TAB PO Daily October 02, 2018 1:00amSept2019 8:43amiv contrast (will be provided with radiology test) (20 sources)Start: 12-12-2021 End: 89-41-5775teaknc 1 dose intravenously onceiv contrast (will be [...] 12/12/2021 03/22/2022 Discontinued (Course of therapy completed)Start: 89-49-5764pmeexa 1 dose intravenously onceiv contrast (will be [...] tablet (16 sources)Nonsteroidal Anti-inflammatory DrugStart: 01-08-2024 End: 82-90-0649hehm 1 tablet by mouth once dailyMeloxicam 15 mg tablet Discontinued 15 MG PO Daily January 23, 2024 12:00am April 23, 2024 2:59pm metoprolol tartrate 50 mg oral tablet (8 sources)beta-Adrenergic BlockerStart: 10-02-2018 End: 79-47-8949gncd 1 tablet by mouth twice dailyMetoprolol Tartrate 50 mg Tablet Discontinued 50 MG PO Twice daily October 02, 2018 1:00am May 06, 2020 1:58pmpantoprazole 40 mg delayed release oral tablet (20 sources)Proton Pump InhibitorStart: 12-04-2021 End: 49-94-0538utxg 1 tablet by mouth once dailypantoprazole DR (PROTONIX) 40 mg tablet Take 1 tablet by mouth once daily. 30 tablet 0 12/04/2021 03/22/2022 Discontinued (Course of therapy completed)Comment on above:Take 1 tablet by mouth once daily.microencapsulated potassium chloride 10 meq extended release oral tablet (20 sources)Start: 12-20-2021 End: 10-93-9130sadi 1 tablet by mouth once dailypotassium chloride ER (K-DUR, KLOR-CON) 10 mEq tablet Take 1 tablet by mouth once daily. 90 tablet 3 01/10/2022 05/10/2022 Discontinued (Clinical Decision)Start: 11-78-0910imxn 1 tablet by mouth once dailyKLOR-CON M20 20 mEq tablet TAKE 1 TABLET BY MOUTH EVERY DAY 90 tablet 3 10/26/2021 ActiveStart: 10-02-2018 End: 90-59-1849pzvk 1 tablet by mouth once daily in the morningPotassium Chloride 20 mEq Tablet Extended Release Discontinued 20 MEQ PO Every morning October 02, 2018 1:00am April 23, 2024 2:59pmComment on above:TAKE 1 TABLET BY MOUTH EVERY DAYTake 1 tablet by mouth once daily.sildenafil 100 mg oral tablet (20 sources)Phosphodiesterase 5 InhibitorStart: 08-29-2021 End: 34-49-2945Imhbbvascb (Viagra) 100 mg Tablet Discontinued 50 MG [...] mg oral tablet (20 sources)AntiarrhythmicStart: 12-20-2021 End: 35-59-7269mhyg 1 tablet by mouth twice dailysotalol (BETAPACE) 80 mg tablet Indications: Atrial fibrillation, persistent (HCC) Take 1 tablet bymouth twice daily. 180 tablet 3 01/10/2022 05/10/2022 Discontinued (Discontinued by another Health Care Provider)Start: 05-05-2020 End: 81-40-6186ggil 1 tablet by mouth every twelve hoursSotalol 80 mg Tablet Discontinued 80 MG PO Q12H 60 30 May 05, 2020 12:00am January 23, 2024 2: 06pmComment on above:Take 80 mg by mouth twice daily.Take 1 tablet by mouth twice daily.spironolactone 25 mg oral tablet (1 source)Aldosterone AntagonistStart: 63-38-9854pxrk 1 tablet by mouth once dailySpironolactone 25 MG Oral Tablet TAKE 1 TABLET DAILY. Quantity: 90 Refills: 3 Ordered: 29-Oct-2021 Tera Davison MD Start : 29-Oct-2021 Active new start tiZANidine 4 mg oral tablet (12 sources)Central alpha-2 Adrenergic AgonistStart: 06-10-2024 End: 50-16-6303jrvn 1 tablet by mouth every eight hours [...] sources)Contact dermatitis; Translations: [Unspecified contact dermatitis, unspecified cause]03-48-9128BivbeyjmWghwii; peripheral; and visceral artery aneurysms (20 sources)Ascending aorta dilatation; Translations: [Thoracic aortic ectasia] Onset: 45-83-2179CyieelfCnwrwst dysrhythmias (11 sources)Palpitations; Translations: [Palpitations]EpisodicCoagulation and hemorrhagic disorders (20 sources)Thrombophilia; Translations: [Other thrombophilia]Onset: 02-09-2024 86-83-6865JiorufbUvdhqdqw atherosclerosis and other heart disease (1 source)Calcification of coronary artery; Translations: [Atherosclerotic heart disease of [place] coronary artery without angina pectoris]95-32-0414Fmvavka Crushing injury or internal injury (4 sources)Crushing injury of right foot, initial encounter; Translations: [CRUSHING INJURY RIGHT FOOT INITIAL]Onset: 14-32-8038IwzjdxxmCnznfjwfbw and other anemia (2 sources)Autoimmune hemolytic anemia; 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]48-66-0040LohujrcBoxwwcfh mellitus without complication (2 sources)Impaired fasting glycemia; Translations: [Impaired fasting glucose] 85-44-6211WnvwbqxnIbfhpfao of white blood cells (20 sources)Lymphocytosis; Translations: [Lymphocytosis (symptomatic)]Onset: 669942-95-9354UtmidvwI Codes: Struck by; against (1 source)Other cause of strike by thrown, projected or falling object, initial encounter; Translations: [OTHCAUSE STRIK THRWN/FALL OBJ INIT]Onset: 11-14-2022 EpisodicEssential hypertension (20 sources)Essential hypertension; Translations: [Unspecified essential hypertension]Onset: 800452-20-4957VcjfselSssomgi on above:Problem List clean-up per request of Phys. EHR CmteFracture of upper limb (6 sources)Closed fracture of phalanx of finger; Translations: [Fracture of unspecified phalanx of unspecifiedfinger, initial encounter for closed fracture] 02-93-2110DtkhxindPtobp disorders and dislocations; trauma-related (2 sources)Tear of medial meniscus of knee; Translations: [Other tear of medial meniscus, current injury, right knee, subsequent encounter]75-34-3711Royzivbp Leukemias (3 sources)Chronic lymphoid leukemia, disease; Translations: [Chronic lymphocytic leukemia of B-cell type not having achieved remission]Onset: 012418-92-4942IenfaqaXackoqfdwsb chest pain (8 sources)Chest pain; Translations: [Chest pain, unspecified]Episodic Osteoarthritis (13 sources)Degenerative joint disease of ankle AND/OR foot; Translations: [Primary osteoarthritis, unspecifiedankle and foot]Onset: 862665-80-0622 ChronicOther connective tissue disease (1 source)Synovitis and tenosynovitis, unspecified; Translations: [SYNOVITIS AND TENOSYNOVITIS UNS]Onset: 85-54-7344BqiwbolgPisnh connective tissue disease (4 sources)Spasm; Translations: [Other muscle spasm]82-34-4812DbvrjjdbEnbpf connective tissue disease (2 sources)Pain of left hand; Translations: [Pain in left hand]09-30-2024 EpisodicOther connective tissue disease (6 sources)Pain in finger; Translations: [Pain in unspecified finger(s)] 91-69-7590WyefqeifKccwg connective tissue disease (2 sources)Cramp; Translations: [Cramp and spasm]53-61-4191GfqptdbuTicxs injuries and conditions due to external causes (3 sources)Unspecified injury of right ankle, initial encounter; Translations: [UNSPECIFIED INJURY RT ANKLE INITIAL]Onset: 05-69-9027ExiswfzlKvrso male genital disorders (20 sources)Male erectile dysfunction, unspecified; Translations: [Impotence of organic origin]Onset: 570408-11-7876BqxwplaHjfxs non-traumatic joint disorders (2 sources)Pain in right knee; Translations: [Pain in joint, lower leg] 38-32-5834DlqzdehiKrwal nutritional; endocrine; and metabolic disorders (8 sources)Overweight in adulthood with body mass index of 25 or more but less than 30; Translations: [Overweight]EpisodicOther upper respiratory infections (2 sources)Acute maxillary sinusitis; Translations: [Acute maxillary sinusitis, unspecified]95-15-5620EtjpnhenTkvpvrjdlb and visceral atherosclerosis (20 sources)Arteriosclerotic vascular disease; Translations: [Unspecified atherosclerosis]Onset: 69-71-9915NftcrkfPvrbnjvj codes; unclassified (20 sources)Sleep apnea; Translations: [Unspecified sleep apnea]Onset: 909909-89-5756ZkabghnMprlomse codes; unclassified (20 sources)Obstructive sleep apnea syndrome; Translations: [Obstructive sleep apnea (adult) (pediatric)]Onset: 757607-90-2288DhafaosBigzmhiw codes; unclassified (5 sources)Non-smoker; Translations: [Other specified conditions influencing health status]EpisodicResidual codes; unclassified (1 source)H/O: atrial fibrillation; Translations: [Other specified postprocedural states]EpisodicResidual codes; unclassified (6 sources)History of arthroscopy of knee joint; Translations: [Other specified postprocedural states]32-72-9132KhnsymxtEmheasd and strains (4 sources)Strain of thoracic region; Translations: [Strain of muscle and tendon of back wall of thorax, initial encounter]79-00-8478DlvtmonyPcnczvewsqq injury; contusion (5 sources)Contusion of right ankle, initial encounter; Translations: [CONTUSION RIGHT ANKLE INITIAL ENC]Onset: 66-52-3841IjdrrhlgXxbihdbaonoi (2 sources)Right knee pain, unspecified ptqzhqmexn48-82-2216 Past or Other Problems Problem ClassificationProblemDateDocumented DateEpisodic/ChronicCalculus of urinary tract (20 sources)History of calculus of kidney; Translations: [Personal history of urinary calculi]Onset: 04-14-2023 Resolved: 324450-37-7807EqjdxcwfDvbfkye dysrhythmias (20 sources)Paroxysmal atrial fibrillation; Translations: [Atrial fibrillation] Onset: 09-27-2021 Resolved: 704680-58-3309AtvbwdnSygdefa on above:Problem List clean-up per request of Phys. EHR CmteComplications of surgical procedures or medical care (20 sources)Drug therapy finding; Translations: [Unspecified adverse effect of drug or medicament, initial encounter]Onset: 02-09-2024 Resolved: 738591-06-9719UjucrsznZxgihdd on above:Problem List clean-up per request of Phys. EHR CmteDisorders of lipid metabolism (20 sources)Hyperlipidemia; Translations: [Other and unspecified hyperlipidemia] Onset: 08-05-2023 Resolved: 621741-84-2740HopzouiKfmqau and vomiting (20 sources)Postoperative nausea and vomiting; Translations: [Nausea with vomiting, unspecified]Onset: 775660-14-2994HyetozpaXtbtq aftercare (20 sources)Patient encounter status; Translations: [FCI (current) use of anticoagulants]Onset: 02-09-2024 Resolved: 08-74-8035TcbsmmnnUvimcjr on above:Problem List clean-up per request of Phys. EHR CmteOther and unspecified benign neoplasm (20 sources)History of polyp of colon; Translations: [History of colon polyps] Onset: 382440-31-8089IxbcfkgxPfcfw connective tissue disease (1 source)Pain in left finger(s); Translations: [Pain in left finger(s)]Onset: 43-78-7063XsulxfjzEsput diseases of kidney and ureters (20 sources)Hydronephrosis; Translations: [Unspecified hydronephrosis]Onset: 04-14-2023 Resolved: 074961-16-2187OeszagouQbecs infections; including parasitic (20 sources)Personal history of other infectious and parasitic diseases; Translations: [History of COVID-19]Onset: 112063-05-4123NwgmfbjrOhwtf lower respiratory disease (20 sources)Dyspnea; Translations: [Other respiratory abnormalities]Onset: 02-09-2024 Resolved: 395176-04-1624VkmjrxcnDkbwb lower respiratory disease (20 sources)Nodule of lung; Translations: [Solitary pulmonary nodule]Onset: 55-18-2453HtxxtmbwXvbe-; endo-; and myocarditis; cardiomyopathy (except that caused by tuberculosis or sexually transmitted disease) (20 sources)Cardiomyopathy; Translations: [Cardiomyopathy, unspecified]Onset: 02-09-2024 Resolved: 118408-15-6124QaxzypgIskrdoo on above:Problem List clean-up per request of Phys. EHR CmteUnclassified (3 sources)Never smoked tobacco; Translations: [Never a smoker]Viral infection (20 sources)Disease caused by 2019-nCoV; Translations: [COVID-19]Onset: 08-05-2023 Resolved: 514188-12-2976DexfyayvXdnftcd on above:Problem List clean-up per request of Phys. EHR Cmte Results Test NameValueInterpretationReference RangeFacilityALL CBC WITH AUTO DIFFon 09-73-5081Ipmakhieval distribution width (RBC) [Ratio]13.2 %11.0 - 15.0 %NOMS HealthcareHematocrit (Bld) [Volume fraction]38.4 %Low42.0 - 54.0 %[facility] HealthcareHemoglobin (Bld) [Mass/Vol]13.1 g/dLLow14.0 - 18.0 g/dLNOMS Healthcare Interpretation and review of laboratory resultsAbnormalChildren's Mercy HospitalH (RBC) [Entitic mass]34.3 atOxbg58.9 - 34.0 pgChildren's Mercy HospitalHC (RBC) [Mass/Vol]34.1 g/dL29.9 - 35.2 g/dLChildren's Mercy HospitalV (RBC) [Entitic vol]100.5 lJWuzu79.0 - 94.0 fLFreeman Heart InstitutePlatelet mean volume (Bld) [Entitic vol]8.6 fLLow9.5 - 13.5 fLFreeman Heart InstituteTBH JYB575FduRELQFreeman Heart InstituteTB RBC3.82LowFreeman Heart Institute TB WBC23.8HMarshfield Medical Center - Ladysmith Rusk CountyCLINISYNCNOMS [facility] Medical CenterECHOon 06-13-2025 EchocardiographyEchocardiography Report: Transthoracic Echo [facility] Date of service: 06/13/2025 10:33:42 AM ELECTRICAL ENGINEER Ordering physician: ITA TUTTLE Exam indication: Sustained [...] * * * Final * * * [employer] [facility] : [id number] [facility] LDHon 42-19-4438GYR [Catalytic activity/Vol]299 U/LHigh85 - 227 U/LNOMS HealthcareCCF CMP (CMP) (FOR REMOTE [facility] USE)on 67-30-2288Rpcrdmr [Mass/Vol]3.5 g/dL3.4 - 5.0 g/dLNONV HealthcareALBUMIN GLOBULIN RATIO1.3NONV HealthcareALP [Catalytic activity/Vol]66 U/L46 - 116 U/L NOMS HealthcareALT [Catalytic activity/Vol]48 U/L16 - 63 U/LNOMS HealthcareAnion gap [Moles/Vol]11.2 mmol/LNOMS HealthcareAST [Catalytic activity/Vol]30 U/L15 - 37 U/LNOMS HealthcareBilirubin [Mass/Vol]2.0 mg/dLHigh0.2 - 1.0 mg/dLNONV HealthcareCalcium [Mass/Vol]8.4 mg/dLLow8.5 - 10.1 mg/dLNONV HealthcareChloride [Moles/Vol]102 mmol/L98 - 107 mmol/LNOMS HealthcareCO2 [Moles/Vol]33.3 mmol/L High21.0 - 32.0 mmol/LNOMS HealthcareCreatinine [Mass/Vol]0.88 mg/dL0.70 - 1.30 mg/dLNONV HealthcareGFR/1.73 sq M.predicted CKD-EPI (S/P/Bld) [Vol rate/Area]>60 >=60 mL/min/1.73m 2NOMS HealthcareGlobulin (S) [Mass/Vol]2.7 g/dLNONV Healthcare Glucose [Mass/Vol]84 mg/dL74 - 106 mg/dLNOMS HealthcarePotassium [Moles/Vol]3.5 mmol/L3.5 - 5.1 mmol/LNOMS HealthcareProtein [Mass/Vol]6.2 g/dLLow6.4 - 8.2 g/dL Freeman Heart InstituteSodium [Moles/Vol]143 mmol/L136 - 145 mmol/LNGRIFFIN MEMORIAL HOSPITAL [facility] HealthcareTB EGFR-NON AF BENINESE>60>=60 mL/min/1.73m 2NOMS HealthcareUrea nitrogen [Mass/Vol]23.0 mg/dLHigh7.0 - 18.0 mg/dLFreeman Heart InstituteUrea nitrogen/Creatinine [Mass ratio]26.1 mg/mgFreeman Heart InstituteNo Panel Informationon 06-08-2025 Interpretation and review of laboratory resultsAbCarolinas ContinueCARE Hospital at [facility] CBC WITH AUTO DIFFon 22-14-7255Rwretgnzymt distribution width (RBC) [Ratio]14.1 %11.0 - 15.0 %[facility] Heart InstituteHematocrit (Bld) [Volume fraction]33.5 %Low42.0 - 54.0 %[facility] InstituteHemoglobin (Bld) [Mass/Vol]11.3 g/dLLow14.0 - 18.0 g/dLFreeman Heart InstituteInterpretation and review of laboratory resultsAbnoKindred Hospital Philadelphia (RBC) [Entitic mass]36.3 wqCfeg40.9 - 34.0 pg [facility] (RBC) [Mass/Vol]33.7 g/dL29.9 - 35.2 g/dLChildren's Mercy HospitalV (RBC) [Entitic vol]107.7 jJIrgr52.0 - 94.0 fLKindred Hospitallet mean volume (Bld) [Entitic vol]8.8 fLLow9.5 - 13.5 fLSaint Alexius Hospital NQP035TvdSGBASaint Alexius Hospital RBC3.11LowSaint Alexius Hospital WBC24.4HighFreeman Heart InstituteINISStarr Regional Medical Center CBC WITH AUTO DIFFon 78-47-7426Azzogmupxnn distribution width (RBC) [Ratio]15.6 %High11.0 - 15.0 %[facility] Heart InstituteHematocrit (Bld) [Volume fraction]32.1 %Low42.0 - 54.0 %NOMS HealthcareHemoglobin (Bld) [Mass/Vol]10.5 g/dLLow14.0 - 18.0 g/dLALTA VIEW HOSPITAL HealthcareInterpretation and review of laboratory resultsAbnormForbes Hospital (RBC) [Entitic mass]36.7 oaDddr61.9 - 34.0 pg [facility] (RBC) [Mass/Vol]32.7 g/dL29.9 - 35.2 g/dLChildren's Mercy HospitalV (RBC) [Entitic vol]112.2 sNWisi23.0 - 94.0 fLFreeman Heart InstitutePlatelet mean volume (Bld) [Entitic vol]9.1 fLLow9.5 - 13.5 fLSaint Alexius Hospital RSW526XIPYMid [facility] RBC2.86LowNOMid [facility] WBC29.2HGood Hope Hospital HealthcareALL CBC WITH AUTO DIFFon 93-35-7055Dxgcztpasua distribution width (RBC) [Ratio]16.6 %High11.0 - 15.0 %[facility] Heart InstituteHematocrit (Bld) [Volume fraction]27.9 %Low42.0 - 54.0 %[facility] InstituteHemoglobin (Bld) [Mass/Vol]9.2 g/dLLow14.0 - 18.0 g/dLALTA VIEW HOSPITAL HealthcareInterpretation and review of laboratory resultsAbnormForbes Hospital (RBC) [Entitic mass]37.2 vgLtij38.9 - 34.0 pg [facility] (RBC) [Mass/Vol]33 g/dL29.9 - 35.2 g/dLChildren's Mercy HospitalV (RBC) [Entitic vol]113 aJObjv94.0 - 94.0 fLFreeman Heart InstitutePlatelet mean volume (Bld) [Entitic vol]9.2 fLLow9.5 - 13.5 fLSaint Alexius Hospital MHI868IvrUKZUMid [facility] RBC2.47LowSaint Alexius Hospital WBC26.8HighHolzer Health System HealthcareAntibody Identificationon [id number] IdentificationWARM [facility] Physician GroupComment on above:Result Comment: Auto-Anti-D Auto-Anti-e Testing performed and reported by [facility].Blood Bank Pathologist Reviewon 05-56-3303Yhmyg Bank Pathologist ReviewSent to [facility] Emergency Physician GroupComment on above: Result Comment: PERFORMED BY: [address] [address] PATHOLOGIST INDUSTRIAL RELATIONS SPECIALIST DANIELLE QUINONES M.D.[facility] BB Sendouton 67-57-3161Doxdupxz [facility] BB SendoutSent to [facility] Physician GroupComment on above: Result Comment: Sent to [facility] for further testing. Final report to follow. PERFORMED BY: [address] [address] PATHOLOGIST INDUSTRIAL RELATIONS SPECIALIST DANIELLE QUINONES M.D.Complement DATon 70-81-1059Sytgnwhtop C3B,-C3D AHGPositive Critically abnormalNegativeUf Health Shands Hospital Physician George Regional HospitalCompromedica monroe regional hospital on above:Result Comment: PERFORMED BY: [address] [address] PATHOLOGIST INDUSTRIAL RELATIONS SPECIALIST DANIELLE QUINONES M.D.Direct Antiglobulin Teston 58-78-1443LjD AHGPositive Critically abnormalNegativeThe [facility] Physician GroupDirect [place] 31-18-8601Plggvdavprxm AHGPositiveCritically abnormalNegativeThe [facility] Physician [facility] Regional HospitalCompromedica [facility] on above:Result Comment: PERFORMED BY: [address] [address] PATHOLOGIST INDUSTRIAL RELATIONS SPECIALIST DANIELLE QUINONES M.D.Jalil 05-13-2025L Specimen: [id number] Received: 05/16/25 Status: FRANCIS Yin Num: [id number] Spec Type: Impression Subm Dr: Christian Carlos, II, DO Tissues: PATHBBK Procedures: PATHREVIEW Age/ Patient Sex Location Account Attending Physician Darius Valera 64/M [id number] Christian Carlos II DO SPEC NUM: [id number] RECD: 05/16/25-1159 STATUS: FRANCIS YIN NUM: [id number] MELONIE: 05/13/25- SUBM DR: Christian Carlos II, DO ENTERED: 05/16/25-[address] [facility] [address]: SPEC TYPE: Impression DEPT: MO ORDERED: PATHREVIEW ORDERED: [facility]REOH[facility] Blood Bank Results Date Time Test Result Flag (u) Normal Range 05/12/25935 Ab Screen POSITIVE AB ID 05/12/25935 AUTO, Panaglutin, Warm Auto-Anti-D Auto-Anti-e Testing performed and reported by [facility]. Pathologist Review [place] [facility] reports detection of auto anti-D, auto anti-e, nonspecific reactivity, and probable warm autoantibody. Recommendation: The majority of ABO/Rh D compatible units will be incompatible with neat serum/plasma. Specimen: [id number] Received: 05/16/25 Status: FRANCIS Veronika Num: [id number] Spec Type: Impression Subm Dr: Christian Carlos II, DO Tissues: DEBORAH Procedures: PATHREVIEW Patient: Darius Valera [id number] (Continued) Signed (signature on file) Vinay Cowan JR, MD 05/25/[address] [place] [address] GroupAlanine aminotransferase [Enzymatic activity/volume] in Serum or PlasmaOrdered By: Christian Carlos on 73-34-4925ZYE [Catalytic activity/Vol]23 U/LNormal7-52Bu[facility]rus Community HospitalComment on above:Performed By: #### SCAN CBC, LDH, CMP #### [facility] [address] [place] [address] USAAlbumin [Mass/volume] in Serum or Plasma by Bromocresol green (BCG) dye binding methoOrdered By: Christian Carlos on 89-21-5681Cslktfg BCG dye [Mass/Vol]4.2 g/dL3.5-5.7FFostoria City HospitalAlkaline phosphatase [Enzymatic activity/volume] in Serum or PlasmaOrdered By: Christian Carlos on 98-76-4190AGJ [Catalytic activity/Vol]69 U/RTfqkvi66-786FdozofvpzBucyrus Community HospitalComment on above:Performed By: #### SCAN CBC, LDH, CMP #### [place] [address] USAAnisocytosis [Presence] in Blood by Light microscopy Ordered By: Christian Carlos on 53-70-5229Dnpnhknzzhdt Ql (Bld)SlightNormal [facility] HospitalComment on above:Performed By: #### SCAN CBC, LDH, CMP #### [place] [address] USAAspartate aminotransferase [Enzymatic activity/volume] in Serum or PlasmaOrdered By: Christian Carlos on 57-68-2919YOL [Catalytic activity/Vol]28 U/DSjrnml19-05GzhucjqemBucyrus Community HospitalComment on above: Performed By: #### SCAN CBC, LDH, CMP #### [place] [address] USABasophils [#/volume] in Blood by Automated countOrdered By: Christian Carlos on 82-48-9805Azxaxpbkt (Bld) [#/Vol]0.1 10*3/uLNormal 0.0-0.2FFostoria City HospitalComment on above:Performed By: #### SCAN CBC, LDH, CMP #### [address] [place] [address] USABasophils/100 leukocytes in Blood by Automated count Ordered By: Christian Carlos on 42-15-2030Bltfiqgpc/100 WBC (Bld)0.3 %Normal. [facility] Community HospitalComment on above:Performed By: #### SCAN CBC, LDH, CMP #### [facility] [address] [place] [id number] USABilirubin.total [Mass/volume] in Serum or PlasmaOrdered By: Christian Carlos on 46-07-7759Fjorgvvzp [Mass/Vol]3.4 mg/dLHigh0.3-1.0 [facility] HospitalComment on above:Samples from patients who have [...] By: #### SCAN CBC, LDH, CMP #### [place] [id number] USACalcium [Mass/volume] in Serum or PlasmaOrdered By: Christian Carlos on 39-83-9150Gxinssj [Mass/Vol]8.7 mg/dLNormal8.6-10.3 [facility] HospitalComment on above:Performed By: #### SCAN CBC, LDH, CMP #### [address] [address] USACarbon dioxide, total [Moles/volume] in Serum or Plasma Ordered By: Christian Carlos on 83-65-8524OI1 [Moles/Vol]34.3 mmol/LHigh 21.0-31.0[facility] Community HospitalComment on above:Performed By: #### SCAN CBC, LDH, CMP #### [address] [address] USAChloride [Moles/volume] in Serum or PlasmaOrdered By: Christian Carlos on 49-87-6358Qtmmipaq [Moles/Vol]104 mmol/IGnucpw57-209 [facility] HospitalComment on above:Performed By: #### SCAN CBC, LDH, CMP #### [facility] [address] [place] [address] USAComprehensive Metabolic Panelon 02-41-3019Ndcsbga [Mass/Vol]4.2 g/dLNormal3.5-5.7[facility] Physician George Regional HospitalComment on above: Performed By: #### SCAN CBC, LDH, CMP #### [facility] [address] [place] [address] USACreatinine Clr Calc Gzfiakep36.86NormalThe Danville State HospitalComment on above:Performed By: #### SCAN CBC, LDH, CMP #### [facility] [address] [place] [address] USAGFR/1.73 sq M.predicted MDRD (S/P/Bld) [Vol rate/Area] mL/min/{1.73_m2}NormalThe Danville State HospitalComment on above:Performed By: #### SCAN CBC, LDH, CMP #### [facility] [address] [place] [address] USACreatinine [Mass/volume] in Serum or PlasmaOrdered By: Christian Carlos on 67-53-1108Ghrpfjaekz [Mass/Vol]0.92 mg/dLNormal0.70-1.30 [facility] HospitalComment on above:Performed By: #### SCAN CBC, LDH, CMP #### [facility] [address] [place] [address] USADacrocytes [Presence] in Blood by Light microscopyOrdered By: Christian Carlos on 60-34-3474Zhoongcvvn LM Ql (Bld)SlightBucyrus Community HospitalEosinophils [#/volume] in Blood by Automated countOrdered By: Christian Carlos on 23-16-7865Tlexgnagatn (Bld) [#/Vol]0.0 10*3/uLNormal 0.0-0.45[facility] Community HospitalComment on above:Performed By: #### SCAN CBC, LDH, CMP #### [facility] [address] [place] [address] USAEosinophils/100 leukocytes in Blood by Automated count Ordered By: Christian Carlos on 13-96-9712Nluklpfxrnl/100 WBC (Bld)0.1 %Normal. [facility] HospitalComment on above:Performed By: #### SCAN CBC, LDH, CMP #### [place] [address] USAErythrocyte Sedimentation Rateon 14-31-2080LHT (Bld) [Velocity]mm/hNormal0-19The [facility] Physician GroupComment on above:Result Comment: PERFORMED BY: [place] [address] PATHOLOGIST INDUSTRIAL RELATIONS SPECIALIST DANIELLE QUINONES M.D.Performed By: #### SCAN CBC, LDH, CMP #### [place] [address] USAErythrocyte distribution width [Ratio] by Automated count Ordered By: Christian Carlos on 23-61-3173Datfbzqcqor distribution width (RBC) [Ratio]16.6 %High12.0-14.8[facility] Community HospitalComment on above: Performed By: #### SCAN CBC, LDH, CMP #### [facility] [address] [place] [address] USAErythrocyte morphology finding [Identifier] in Blood Ordered By: Christian Carlos on 42-35-8319GDT morphology finding Nom (Bld)N/A [facility] HospitalErythrocyte sedimentation rate by Photometric methodOrdered By: Christian Carlos on 50-17-1362FTQ Photometric method (Bld) [Velocity]< 1 mm/hr0-19Bu[facility] Community HospitalErythrocytes [#/volume] in Blood by Automated countOrdered By: Christian Carlos on 47-41-2057VMN (Bld) [#/Vol]2.39 10*6/uLLow3.90-5.60[facility] HospitalComment on above:Performed By: #### SCAN CBC, LDH, CMP #### [facility] [address] [place] [address] USAFerritin [Mass/volume] in Serum or PlasmaOrdered By: Christian Carlos on 25-89-4327Htbdqyqw [Mass/Vol]179.1 ng/oSGwdypp93.9-336.2 [facility] HospitalComment on above:Performed By: #### SCAN CBC, LDH, CMP #### [facility] [address] [place] [address] USAFolate [Mass/volume] in Serum or PlasmaOrdered By: Christian Carlos on 62-94-8027Aipmjw [Mass/Vol]19.3 ng/mL>5.9[facility] HospitalComment on above:Folate reference range: >5.9 ng/mlThe WHO technical consultation on folate and vitamin z08mkqcnsknanem has determined that folate concentrations lessthan 4 ng/ml are considered deficient.Glomerular filtration rate [Volume Rate/Area] in Serum, Plasma or Blood by Creatinine Ordered By: Christian Carlos on 08-19-8019Bqrlhuaqdr filtration rate [Volume Rate/Area] in Serum, Plasma or Blood by Creatinine> 60.0 mL/MinBucyrus Community HospitalGlucose [Mass/volume] in Serum or PlasmaOrdered By: Christian Carlos on 37-36-3574Htncdxu [Mass/Vol]88 mg/wHPnbyyi39-006FbxbuedqwBucyrus Community HospitalComment on above:ADA recommended reference rangeRandom Glucose [...] By: #### SCAN CBC, LDH, CMP #### [facility] [address] [place] [address] USAHaptoglobinon 70-57-3855VNREQDFBHYMvs/dLLow44 - 215 mg/dL [facility] HealthcareInterpretation and review of laboratory resultsAbnormalNOMS HealthcareNOMS HealthcareHaptoglobin<13Nie37-229Qgo [facility] Physician Group Comment on above:Result Comment: PERFORMED BY: [place] [address] PATHOLOGIST INDUSTRIAL RELATIONS SPECIALIST DANIELLE QUINONES M.D.Performed By: #### SCAN CBC, LDH, CMP #### [place] [address] USAHaptoglobin [Mass/volume] in Serum or PlasmaOrdered By: Christian Carlos on 33-58-1739Oafnnayhflo [Mass/Vol]mg/qARrb53-861MgcyifdpkBucyrus Community HospitalHematocrit [Volume Fraction] of Blood by Automated count Ordered By: Christian Carlos on 20-24-9513Vqfxexator (Bld) [Volume fraction] 26.6 %Low38.8-50.0[facility] Community HospitalComment on above:Performed By: #### SCAN CBC, LDH, CMP #### [place] [address] USAHemoglobin [Mass/volume] in BloodOrdered By: Christian Carlos on 35-77-8219Ofxwnkoifp (Bld) [Mass/Vol]8.9 g/dLLow13.0-17.0[facility] HospitalComment on above:Performed By: #### SCAN CBC, LDH, CMP #### [place] [address] USAHypochromia LM Ql (Bld)Ordered By: Christian Carlos on 18-80-3549Vevmhtsbhih Ql (Bld)SlightBucyrus Community HospitalIron [Mass/volume] in Serum or PlasmaOrdered By: Christian Carlos on 59-17-9696Daav [Mass/Vol]139 ug/zMPdoyep56-952VslsywlgtBucyrus Community HospitalComment on above:Performed By: #### SCAN CBC, LDH, CMP #### [place] [address] USAIron and TIBC Profileon 05-12-2025% Iron Pqugfvkkya64.2 % Ezlvns19-95Yud [facility] Physician GroupComment on above:Performed By: #### SCAN CBC, LDH, CMP #### [facility] [address] [place] [address] USATotal Iron Binding Zujvlhyr081 ug/cCUmjcud770-611Bwl [facility] Physician GroupComment on above:Performed By: #### SCAN CBC, LDH, CMP #### [facility] [address] [place] [address] USALeukocytes [#/volume] corrected for nucleated erythrocytes in Blood by Automated counOrdered By: Christian Carlos on 13-58-4783FPD corrected for nucl RBC Auto (Bld) [#/Vol]24.7 10*3/uLHigh4.1-10.5FFostoria City HospitalLeukocytes [#/volume] in Blood by Automated countOrdered By: Christian Carlos on 15-43-9597BNA (Bld) [#/Vol]24.7 10*3/uLHigh4.1-10.5 [facility] HospitalComment on above:Performed By: #### SCAN CBC, LDH, CMP #### [facility] [address] [place] [address] USALymphocytes [#/volume] in Blood by Automated countOrdered By: Christian Carlos on 66-81-5969Ckkjqlppdvt (Bld) [#/Vol]18.5 10*3/uLHigh 1.00-4.8[facility] HospitalComment on above:Performed By: #### SCAN CBC, LDH, CMP #### [facility] [address] [place] [address] USALymphocytes/100 leukocytes in Blood by Automated count Ordered By: Christian Carlos on 47-98-5842Mmmhdjhvhul/100 WBC (Bld)74.6 %Normal .[facility] Community HospitalComment on above:Performed By: #### SCAN CBC, LDH, CMP #### [facility] [address] [place] [address] USAMCH [Entitic mass] by Automated countOrdered By: Christian Carlos on 65-78-2969TNA (RBC) [Entitic mass]37.3 vbQcot70.5-35.2FFostoria City HospitalComment on above:Performed By: #### SCAN CBC, LDH, CMP #### [facility] [address] [place] [address] Auto (RBC) [Mass/Vol]Ordered By: Christian Carlos on 49-15-4727MMJL (RBC) [Mass/Vol]33.5 g/dL32.5-35.6FFostoria City HospitalMCV [Entitic volume] by Automated countOrdered By: Christian Carlos on 25-81-1389DOS (RBC) [Entitic vol]111.3 bHEqjn03.5-101[facility] Community HospitalComment on above:Performed By: #### SCAN CBC, LDH, CMP #### [place] [address] USAMicrocytes LM Ql (Bld)Ordered By: Christian Carlos on 13-14-9401Ddbfcpwrha Ql (Bld)MarkedBucyrus Community HospitalMonocytes [#/volume] in Blood by Automated countOrdered By: Christian Carlos on 02-53-5905Pgxckfxpu (Bld) [#/Vol]0.6 10*3/uLNormal0.0-0.8[facility] Community HospitalComment on above:Performed By: #### SCAN CBC, LDH, CMP #### [facility] [address] [place] [address] USAMonocytes/100 leukocytes in Blood by Automated count Ordered By: Christian Carlos on 71-80-0111Fmzoycwpv/100 WBC (Bld)2.6 %Normal. [facility] Community HospitalComment on above:Performed By: #### SCAN CBC, LDH, CMP #### [facility] [address] [place] [address] USANeutrophils [#/volume] in Blood by Automated countOrdered By: Christian Carlos on 27-07-8355Ojdcdccjseq (Bld) [#/Vol]5.5 10*3/uLNormal 1.8-7.7FFostoria City HospitalComment on above:Performed By: #### SCAN CBC, LDH, CMP #### [facility] [address] [place] [address] USANeutrophils/100 leukocytes in Blood by Automated count Ordered By: Christian Carlos on 34-12-8216Tptdtxgfrbd/100 WBC (Bld)22.4 %Normal .[facility] Community HospitalComment on above:Performed By: #### SCAN CBC, LDH, CMP #### [facility] [address] [place] [address] USANo Panel InformationOrdered By: Christian Carlos on 22-42-7273Ctwupxdc Creatinine Clearance (Chem87.86Bu[facility]rus Community HospitalNucleated erythrocytes [Presence] in Blood by Automated countOrdered By: Christian Carlos on 81-02-1701Dfzxndrww RBC Auto Ql (Bld)0.1 /100{WBC}0-0.5 [facility] Community HospitalPlatelet adequacy [Presence] in Blood by Light microscopyOrdered By: Christian Carlos on 29-26-1615Lfjooletd LM Ql (Bld)Normal [facility] HospitalPlatelet mean volume [Entitic volume] in Blood by Automated countOrdered By: Christian Carlos on 90-09-9021Tczrrizc mean volume (Bld) [Entitic vol]7.0 fLNormal6.6-10.1FFostoria City Hospital Comment on above:Performed By: #### SCAN CBC, LDH, CMP #### [facility] [address] [place] [address] USAPlatelet morphology finding [Identifier] in BloodOrdered By: Christian Carlos on 97-64-3742Kvejkgkp morphology finding Nom (Bld)Normal [facility] HospitalPlatelets [#/volume] in Blood by Automated countOrdered By: Christian Carlos on 12-92-2840Jncorbrsv (Bld) [#/Vol]178 10*3/uZPjoujg933-098UrillgqxkBucyrus Community HospitalComment on above:Performed By: #### SCAN CBC, LDH, CMP #### [facility] [address] [place] [id number] USAPolychromasia [Presence] in Blood by Light microscopy Ordered By: Christian Carlos on 89-86-3186Viwnfjcamtnnv LM Ql (Bld)Moderate [facility] HospitalPotassium [Moles/volume] in Serum or Plasma Ordered By: Christian Carlos on 11-40-8793Enqujqvft [Moles/Vol]3.6 mmol/LNormal 3.5-5.1FFostoria City HospitalComment on above:Performed By: #### SCAN CBC, LDH, CMP #### [facility] [address] [place] [address] USAProtein [Mass/volume] in Serum or PlasmaOrdered By: Christian Carlos on 17-69-6518Srekfsk [Mass/Vol]5.8 g/dLLow6.4-8.9[facility] HospitalComment on above:Performed By: #### SCAN CBC, LDH, CMP #### [place] [address] USAScan and CBCon 80-13-8400LsqwvnngcecphXiphleZjrdpcEqq [facility] Physician GroupComment on above:Performed By: #### SCAN CBC, LDH, CMP #### [place] [address] USAMean Corpuscular HGB Conc33.5 g/kBDrsnia96.5-35.6[facility] Physician [facility] Regional HospitalComment on above:Performed By: #### SCAN CBC, LDH, CMP #### [place] [address] USAMicrocytosisMarkedPhysicians Regional Medical [facility] Physician [facility] Comment on above:Performed By: #### SCAN CBC, LDH, CMP #### [facility] [address] [place] [address] USANRBC%0.1 /100{WBC}Normal0-0.5[facility] Physician [facility] Comment on above:Performed By: #### SCAN CBC, LDH, CMP #### [place] [address] USAPlatelet EstimateNormalNormalPhysicians Regional Medical [facility] Physician [facility] Regional HospitalComment on above:Performed By: #### SCAN CBC, LDH, CMP #### [place] [address] USAPlatelet MorphologyNormalNormalPhysicians Regional Medical Center - [facility] Ridge Physician GroupComment on above:Performed By: #### SCAN CBC, LDH, CMP #### [place] [address] USAPolychromasiaModerateNoNovant Health/NHRMC Physician Group Comment on above:Performed By: #### SCAN CBC, LDH, CMP #### [place] [address] USATear Drop CellsSlightPhysicians Regional Medical Center - Pine Ridge Physician Group Comment on above:Performed By: #### SCAN CBC, LDH, CMP #### [place] [address] USAWhite Blood Count24.7 [CFU]/mLHigh4.1-10.5The [facility] Physician GroupComment on above:Performed By: #### SCAN CBC, LDH, CMP #### [place] [address] USASerum globulin measurement by calculation (mass/volume) Ordered By: Christian Carlos on 82-21-4413Hfttkwqc (S) [Mass/Vol]1.6 g/dLNoal [facility] HospitalComment on above:Performed By: #### SCAN CBC, LDH, CMP #### [place] [address] USASerum or plasma albumin/globulin mass ratioOrdered By: Christian Carlos on 30-01-0653Iozmvjz/Globulin [Mass ratio]2.6 {ratio}Normal [facility] HospitalComment on above:Performed By: #### SCAN CBC, LDH, CMP #### [place] [address] USASerum or plasma anion gap determinationOrdered By: Christian Carlos on 14-10-6680Rmamr gap [Moles/Vol]7.3 mmol/LNormal6.0-15.0[facility] HospitalComment on above:Performed By: #### SCAN CBC, LDH, CMP #### [place] [address] USASerum or plasma iron binding capacity measurement (mass/volume)Ordered By: Christian Carlos on 08-36-5008Ztmc binding capacity [Mass/Vol]301 ug/vD953-102RrvnkznscUniversity Hospitals Conneaut Medical Centererum or plasma iron saturation measurement (mass fraction)Ordered By: Christian Carlos on 57-53-3380Fkxo saturation [Mass fraction]46.2 %20-50University [facility] Conneaut Medical Centerodium [Moles/volume] in Serum or PlasmaOrdered By: Christian Carlos on 02-43-5755Hsmfee [Moles/Vol]142 mmol/DRzbpub687-667VqlvfyoobBucyrus Community HospitalComment on above:Performed By: #### SCAN CBC, LDH, CMP #### [facility] [address] [place] [address] USATransferrin [Mass/volume] in Serum or PlasmaOrdered By: Christian Carlos on 04-76-4230Nhxhjgjecjm [Mass/Vol]215 mg/mHPyacio939-212 [facility] HospitalComment on above:Performed By: #### SCAN CBC, LDH, CMP #### [facility] [address] [place] [address] USAType and Screenon 22-90-7859INY and Rh group Nom (Bld) Blood group O Rh(D) positiveNoNovant Health/NHRMC Physician GroupComment on above: Result Comment: PERFORMED BY: [place] [address] PATHOLOGIST INDUSTRIAL RELATIONS SPECIALIST DANIELLE QUINONES M.D.US spleenon 39-65-7778VI spleenMAGRUDER HOSPITAL Main [place] [address] [place], [place] [address] Ultrasound Report Signed Patient: Darius Valera MR#: [id number] 10 : 1960 Acct:[id number] Age/Sex: 64 / M ADM Date: 05/12/25 Loc: XT [facility]: Christian Carlos II DO Ordering Provider: Christian Carlos II, DO [...] Curry M.D. 05/12/2025 1:08 PM Dictation Location: [place] [address] Tech: Caterinamarietta Aguirre Transcribed By: WADE 05/12/25 1308 Dictated By: Joey Curry DO 05/12/25 1303 Signed By: 05/12/25 1308[facility] Physician GroupUrea nitrogen [Mass/volume] in Serum or PlasmaOrdered By: Christian Carlos on 55-02-6927Iwfc nitrogen [Mass/Vol]20 mg/dLNormal03-18[facility] HospitalComment on above: Performed By: #### SCAN CBC, LDH, CMP #### [facility] [address] [place] [address] USAVit. B12/Folate Profileon 31-91-4512Ayeufs64.3 ng/mLNormal >5.9The [facility] Physician GroupComment on above:Result Comment: Folate reference range: >5.9 ng/ml The WHO technical consultation on folate and vitamin b12 deficiencies has determined that folate concentrations less than 4 ng/ml are considered deficient. PERFORMED BY: [place] [address] PATHOLOGIST INDUSTRIAL RELATIONS SPECIALIST DANIELLE QUINONES M.D.Performed By: #### SCAN CBC, LDH, CMP #### [facility] [address] [id number] USAVitamin B12 ser/plasOrdered By: Christian Carlos on 00-47-8754Ajzeostfv (Vitamin B12) [Mass/Vol]492 pg/lUBmrkjq927-058RmhurlmqlBucyrus Community HospitalComment on above:Performed By: #### SCAN CBC, LDH, CMP #### [facility] [address] [place] [address] USAALL SED RATEon 41-25-1189RZU SED RATE<1NINFUNC Health PardeeCNOVon 96-62-2965OHNPPoawuj Visit (CARDAV) DARIUS VALERA ([id number]) 1960 M Date Time Provider Department 04/04/25 2:30 PM ITA TUTTLE During your visit today, we recorded the following information about you: Pulse Blood pressure Weight Height 76/minute 132/88 88.6 kg 1.829 m Ita Tuttle MD 04/04/2025 2:57 PM Signed [facility] [place] Sissy Zepeda Department of Cardiovascular Medicine SECTION [...] male here today for follow up from [place], [place]. Has h/o AF s/p ablation, HTN, DMITRY, tachycardia induced CMP, and CHF. On Eliquis, Nifedipine XL, Valsartan/HCTZ added on Doxazosin. Doxazocin increased to 2 mg but has been using only 1 mg daily. Continue to have BP spikes above 150s. Sotalol was discontinued. He followed before with a local health care marketing manager Dr Hooks. Since last visit denies [...] Date Value 03/22/2022 0.90 (more content not included)...NormalC[facility] COMPLETEon 36-63-7737Ogktnh Frlb56KFBJymrhlaan ClinicCalculated P Rspy69udjxxisJfklmjfpf ClinicCalculated R Paor1chbtikwOniuwdkhq ClinicCalculated T Frtw77rboysnx [facility] CenterP-R Zedsfwqt572 msCleveland ClinicQRS Mzdrkwle80 msCleveland ClinicQT Cnalqbma381 msCleveland ClinicQTC Calculation (Bazett)425 msCleveland ClinicVentricular Ldjz84NGDFysfixxvm ClinicNORMAL SINUS RHYTHM NORMAL ECG Confirmed by JADE DAS MD ([id number]) on 04/04/2025 5:11:38 PMHEART AND VASCULAR INSTITUTENAME : DARIUS VALERA PID : [id number] : 1960 Gender : Male Race : ORD : Procedure Date : Apr 04 2025 14:34:56 Edit Date : Apr 04 2025 17:11:41 Diagnosis: NORMAL SINUS RHYTHM NORMAL ECG Confirmed by JADE DAS MD ([id number]) on 04/04/2025 5:11:38 PM Test Reason : Location : 192 : AVCRD Overread By : JADE DAS MD Edited By : JADE DAS MD Referred By : , Acquired by : ,[facility]ASCULAR INSTITUTEUniversity Hospitals Cleveland Medical CenterECG01on 04-04-2025 GSN13Wjxzrzykqrv Rate : 76 BPM Atrial Rate : 76 BPM P-R Interval : 178 ms QRS Duration : 86 ms Q-T Interval : 378 ms QTC Calculation(Bazett) : 425 ms Calculated P [place] : 13 degrees Calculated R [place] : 0 degrees Calculated T [place] : 18 degrees NORMAL SINUS RHYTHM NORMAL ECG Confirmed by JADE DAS MD ([id number]) on 04/04/2025 5:11:38 PM NAME : DARIUS VALERA PID : [id number] : 1960 Gender : Male Race : ORD : Procedure Date : Apr 04 2025 14:34:56 Edit Date : Apr 04 2025 17:11:41 Diagnosis: NORMAL SINUS RHYTHM NORMAL ECG Confirmed by JADE DAS MD ([id number]) on 04/04/2025 5:11:38 PM Test Reason : Location : 192 : AVCRD Overread By : JADE DAS MD Edited By : JADE DAS MD Referred By : , Acquired by : ,[facility] Mer[facility] HospitalHEMOGLOBIN A1con 78-93-1234BtA4u (Bld) [Mass fraction]%Normal<5.7Quest DiagnosticsComment on above:Result Comment: [...] diagnosis of diabetes in children. According to [place] Diabetes Association (ADA) guidelines, hemoglobin A1c <7.0% represents optimal control in non- diabetic patients. Different metrics may apply to specific patient populations. Standards of Medical Care in Diabetes(ADA).Performed By: #### 5363, 43990, 60901, 496, 7600 #### [facility] [address], [address] [place] [address] Dry Wall Installations Mechanic: Memo Marquis MDLIPID PANEL, [facility] 29-20-9493Sefwzckpdsi [Mass/Vol]140 mg/dLNormal<200Quest DiagnosticsComment on above:Order Comment: FASTING:YES FASTING: YESPerformed By: #### 5363, 72524, 79478, 496, 7600 #### [facility] [address], [address] [place], [place] [id number] Dry Wall Installations Mechanic: Memo Marquis MDCholesterol in HDL [Mass/Vol]67 mg/dLNormal> OR = 40Quest DiagnosticsComment on above:Order Comment: FASTING:YES FASTING: YESPerformed By: #### 5363, 15452, 81142, 496, 7600 #### [facility] [address], [address] [place] [address] Dry Wall Installations Mechanic: Memo Marquis MDCholesterol in LDL [Mass/Vol]60 mg/dLNormal Quest DiagnosticsComment on [...] LDL-C. Hilario VALDIVIA et al. ARNULFO. 2013;310(19): 5080-9296 (http://education.TenTwenty7/faq/ZTV294)Performed By: #### 5363, 83084, 66648, 496, 7600 #### [facility] [address], [address] [place] [address] Dry Wall Installations Mechanic: Memo HANKSholesterol.total/Cholesterol in HDL [Mass ratio]2.1 {ratio}Normal<5.0Quest DiagnosticsComment on above:Order Comment: FASTING:YES FASTING: YESPerformed By: #### 5363, 82575, 31103, 496, 7600 #### [facility] [address], [address] [place] [address] Dry Wall Installations Mechanic: Memo SAUCEDA HDL BDTHQRRDLZR41 mg/dL (calc)Normal<130 Quest DiagnosticsComment on above:Order Comment: FASTING:YES FASTING: YESResult Comment: For patients with diabetes plus 1 major ASCVD risk factor, treating to a non-HDL-C goal of <100 mg/dL (LDL-C of <70 mg/dL) is considered a therapeutic option.Performed By: #### 5363, 46419, 19542, 496, 7600 #### [facility] [place] [address] Dry Wall Installations Mechanic: Memo Marquis MDTriglyceride [Mass/Vol]53 mg/dLNormal<150Quest DiagnosticsComment on above:Order Comment: FASTING:YES FASTING: YESPerformed By: #### 5363, 71220, 48314, 496, 7600 #### [facility] [address], [address] [place] [address] Dry Wall Installations Mechanic: Memo GAMINGSA, TOTALon 57-21-8103THV, TOTAL0.62 ng/mL Normal< OR = 4.00Quest DiagnosticsComment on above:Result Comment: The total PSA value from this assay system is standardized against the WHO standard. The test result will be approximately 20% lower when compared to the equimolar-standardized total PSA ([place]). Comparison of serial PSA results should be interpreted with this fact in mind. This test was performed using the Siemens chemiluminescent method. Values obtained from different assay methods cannot be used interchangeably. PSA levels, regardless of value, should not be interpreted as absolute evidence of the presence or absence of disease.Performed By: #### 5363, 68686, 64733, 496, 7600 #### [facility] [address], [address] [place] [phone] Dry Wall Installations Mechanic: Memo Marquis MDTS W/REFLEX TO FT4on 76-39-6970YNA W/REFLEX TO FT40.97 mIU/LNormal0.40-4.50Quest DiagnosticsComment on above:Performed By: #### 5363, 97428, 89940, 496, 7600 #### [facility] [address], [address] [place] [address] Dry Wall Installations Mechanic: Memo Marquis MDVITAMIN D,25-OH,TOTAL,IAon 37-67-7881NQORFPG D,25-OH,TOTAL,IA58 ng/bUBeoexk87-120Xlnwa DiagnosticsComment on above:Result Comment: Vitamin D Status 25-OH Vitamin D: Deficiency: <20 ng/mL Insufficiency: 20 - 29 ng/mL Optimal: > or = 30 ng/mL For 25-OH Vitamin D testing on patients on D2-supplementation and patients for whom quantitation of D2 and D3 fractions is required, the QuestAssureD(TM) 25-OH VIT D, (D2,D3), LC/MS/MS is recommended: order code 97704 (patients >2yrs). See Note 1 Note 1 For additional information, please refer to http://education.TenTwenty7/faq/MSI608 (This link is being provided for informational/ educational purposes only.)Performed By: #### 5363, 00575, 95265, 496, 7600 #### [facility] [address], [address] [place] [phone] Dry Wall Installations Mechanic: Memo Marquis MDPATHOLOGY REQUEST FOR LAB CORPon 02-15-2025 PATHOLOGY REQUEST FOR LAB CORPNONV HealthcareComment on above:See report. Scanned copy available in EMR.Freeman Heart InstituteAlanine aminotransferase [Enzymatic activity/volume] in Serum or Plasmaon 33-13-7257DBZ [Catalytic activity/Vol]31 U/LNormal7-52NOMS HealthcareComment on above:Performed By: #### SCAN CBC, LDH, CMP #### [facility] [address] [place] [address] USAAlbumin [Mass/volume] in Serum or Plasma by Bromocresol green (BCG) dye binding methoOrdered By: Christian Carlos on 56-92-4212Bpurqie BCG dye [Mass/Vol]4.7 g/dL3.5-5.7FFostoria City HospitalAlkaline phosphatase [Enzymatic activity/volume] in Serum or Plasmaon 74-54-7008MHU [Catalytic activity/Vol]88 U/JJhvetz26-047OVLG HealthcareComment on above: Performed By: #### SCAN CBC, LDH, CMP #### [facility] [address] [place] [address] USAAnisocytosis [Presence] in Blood by Light microscopy Ordered By: Christian Carlos on 88-52-0180Dvdzhtozfwoy Ql (Bld)SlightNormal [facility] Community HospitalComment on above:Performed By: #### SCAN CBC, LDH, CMP #### [facility] [address] [place] [address] USAAspartate aminotransferase [Enzymatic activity/volume] in Serum or Plasmaon 14-49-6544OCH [Catalytic activity/Vol]38 U/BBlgveb41-04QUXT HealthcareComment on above:Performed By: #### SCAN CBC, LDH, CMP #### [place] [address] USABasophils Auto (Bld) [#/Vol]Ordered By: Christian Carlos on 73-04-5192Sphkpzcme (Bld) [#/Vol]N/[facility] Basophils/100 WBC Auto (Bld)Ordered By: Christian Carlos on 02-10-2025 Basophils/100 WBC (Bld)N/[facility]. Anthony's HospitalBilirubin.total [Mass/volume] in Serum or Plasmaon 28-78-7389Mlzdoqars [Mass/Vol]1.9 mg/dLHigh 0.3-1.0NOMS HealthcareComment on above:Samples from patients who have [...] By: #### SCAN CBC, LDH, CMP #### [facility] [address] [place] [address] USACOAGULATION PROFILEon 55-63-8046kTBU Coag (Bld) [Time]30.1 s25.1 - 36.5 [facility] HospitalComment on above:A hematocrit value greater than 55% may lead to inaccurate results in coagulation testing. Patients having hematocrit values >55% require a special collection tube for coagulation studies. Please contact the laboratory at [phone] for redraw instructions. INR Coag (PPP) [Relative time]1 {INR}[facility] HealthcareComment on above:INR Therapeutic Range A) [...] PT Coag (PPP) [Time]11.1 s9.0 - 12.9 [facility] HospitalComment on above:A hematocrit value greater than 55% may lead to inaccurate results in coagulation testing. Patients having hematocrit values >55% require a special collection tube for coagulation studies. Please contact the laboratory at [phone] for redraw instructions. STAT FOR CTFIRELANDSCT guided bone marrow bx/aspiron 20-01-1966[place] guided bone marrow bx/[facility]irMAGRUDER [facility] [place] [address] [place] [address] CT Scan Report Signed Patient: Darius Valera MR#: [id number] 10 : 1960 Acct:[id number] Age/Sex: 64 / M ADM Date: 02/10/25 Loc: CT Room: Type: [facility] Attending Dr: Christian Carlos II DO [...] local anesthesia. Utilizing CT guidance, an 11-gauge [employer] biopsy needle was advanced into the right [...] Jr., D.OCarrie 02/10/2025 11:08 AM Dictation Location: [place] [address] Transcribed By: [facility] 02/10/25 1108 Dictated By: Garcia Vanegas Jr, DO 02/10/25 1102 Signed By: 02/10/25 1108[facility] Physician GroupCalcium [Mass/volume] in Serum or Plasmaon 26-43-7842Egdzhbg [Mass/Vol]9.3 mg/dLNormal8.6-10.3N[facility]S Healthcare Comment on above:Performed By: #### SCAN CBC, LDH, CMP #### [facility] [address] [place] [address] USACarbon dioxide, total [Moles/volume] in Serum or Plasmaon 15-93-1822TM1 [Moles/Vol]28.6 mmol/NGfiddl61.0-31.0NOMS HealthcareComment on above:Performed By: #### SCAN CBC, LDH, CMP #### [facility] [address] [place] [address] USAChloride [Moles/volume] in Serum or Plasmaon 02-10-2025 Chloride [Moles/Vol]106 mmol/EZyicjt17-015JRRL HealthcareComment on above: Performed By: #### SCAN CBC, LDH, CMP #### [place] [address] USACoagulation Profileon 12-86-7303fQSN Coag (Bld) [Time]30.1 nAxhxki22.1-36.5The [facility] Physician GroupComment on above:Order Comment: STAT FOR CTResult Comment: A hematocrit value greater than 55% may lead to inaccurate results in coagulation testing. Patients having hematocrit values >55% require a special collection tube for coagulation studies. Please contact the laboratory at [phone] for redraw instructions. PERFORMED BY: [place] [address] PATHOLOGIST INDUSTRIAL RELATIONS SPECIALIST DANIELLE QUINONES M.D.Performed By: #### SCAN CBC, LDH, CMP #### [place] [address] USAComprehensive Metabolic Panelon 96-38-2580Hkwbquw [Mass/Vol]4.7 g/dLNormal3.5-5.7NOMS HealthcareComment on above:Performed By: #### SCAN CBC, LDH, CMP #### [place] [address] USACREATININE CLR CALC XNJFVLVE99.99NormalNOMS Healthcare Comment on above:Result Comment: PERFORMED BY: [address] [place] [address] PATHOLOGIST INDUSTRIAL RELATIONS SPECIALIST DANIELLE QUINONES M.D.Performed By: #### SCAN CBC, LDH, CMP #### [facility] [address] [place] [address] USAGFR/1.73 sq M.predicted MDRD (S/P/Bld) [Vol rate/Area] mL/min/{1.73_m2}NormalThe Sloop Memorial Hospital Physician GroupComment on above:Performed By: #### SCAN CBC, LDH, CMP #### [facility] [address] [place] [address] USAComprehensive metabolic panelon 54-36-0702Zbmvnpudto (U) [Mass/Vol]0.86 mg/dL0.70 - 1.30 mg/dLNOMS HealthcareESTIMATED GFRNOMS Healthcare Globulin (S) [Mass/Vol]2 g/dLNOMS HealthcareInterpretation and review of laboratory resultsAbnormalNOMS HealthcareCreatinine [Mass/volume] in Serum or PlasmaOrdered By: Christian Carlos on 30-53-4005Ttqjudiqyi [Mass/Vol]0.86 mg/dL Normal0.70-1.30[facility] Community HospitalComment on above:Performed By: #### SCAN CBC, LDH, CMP #### [place] [address] USADacrocytes [Presence] in Blood by Light microscopyOrdered By: Christian Carlos on 09-78-3410Gssoxtponj LM Ql (Bld)SlightBucyrus Community HospitalDiff and CBCon 82-17-1314Cpqe Corpuscular HGB Conc35.2 g/bCAueirc71.5-35.6The [facility] Physician GroupComment on above:Performed By: #### SCAN CBC, LDH, CMP #### [place] [address] USAOvalocytesSlightNoNovant Health/NHRMC Physician George Regional HospitalComment on above:Performed By: #### SCAN CBC, LDH, CMP #### [place] [address] USAPlatelet EstimateNormalNormalNormAdventHealthlands Physician GroupComment on above:Performed By: #### SCAN CBC, LDH, CMP #### [place] [address] USAPlatelet MorphologyNormalNormHendry Regional Medical Center Physician GroupComment on above:Result Comment: PERFORMED BY: [place] [address] PATHOLOGIST INDUSTRIAL RELATIONS SPECIALIST DANIELLE QUINONES M.D.Performed By: #### SCAN CBC, LDH, CMP #### [place] [address] USAPoikilocytosisSAmerican Healthcare Systems Physician Group Comment on above:Performed By: #### SCAN CBC, LDH, CMP #### [place] [address] USAPolychromasiaSAmerican Healthcare Systems Physician [facility] Comment on above:Performed By: #### SCAN CBC, LDH, CMP #### [place] [address] USATear Drop CellsSAmerican Healthcare Systems Physician [facility] Comment on above:Performed By: #### SCAN CBC, LDH, CMP #### [place] [address] USAWhite Blood Count20.7 [CFU]/mLHigh4.1-10.5The [facility] Physician GroupComment on above:Performed By: #### SCAN CBC, LDH, CMP #### [place] [address] USAEosinophils Auto (Bld) [#/Vol]Ordered By: Christian Carlos on 65-93-8856Ysjzaldohfr (Bld) [#/Vol]N/[facility]. Anthony's HospitalEosinophils/100 WBC Auto (Bld)Ordered By: Christian Carlos on 02-10-2025 Eosinophils/100 WBC (Bld)N/[facility]. Anthony's HospitalEosinophils/100 leukocytes in Blood by Manual countOrdered By: Christian Carlos on 02-10-2025 Eosinophils/100 WBC (Bld)1 %Normal1-3FFostoria City HospitalComment on above:Performed By: #### SCAN CBC, LDH, CMP #### [facility] [address] [place] [address] USAErythrocyte distribution width [Ratio] by Automated count Ordered By: Christian Carlos on 64-75-7907Dybcemsqidu distribution width (RBC) [Ratio]13.4 %Fiskbk71.0-14.8Bu[facility] Community HospitalComment on above: Performed By: #### SCAN CBC, LDH, CMP #### [facility] [address] [place] [address] USAErythrocyte morphology finding [Identifier] in Blood Ordered By: Christian Carlos on 44-20-1631QKO morphology finding Nom (Bld)N/A [facility] Community HospitalErythrocytes [#/volume] in Blood by Automated countOrdered By: Christian Carlos on 11-07-6345VXU (Bld) [#/Vol]3.98 10*6/uL Normal3.90-5.60[facility] Community HospitalComment on above:Performed By: #### SCAN CBC, LDH, CMP #### [facility] [address] [place] [address] USAFree K+L LT Chains, Qn, Son 59-49-5733Vixw [place] Light Chains, S16.3 mg/LNormal3.3-19.4The [facility] Physician GroupComment on above: Performed By: #### SPE, KAPPA, JIGAR SERUM #### [facility] ,Free Lambda Light Chains, S10.6 mg/LNormal5.7-26.3The [facility]ician [facility] Comment on above:Performed By: #### SPE, KAPPA, JIGAR SERUM #### [facility] ,[place]/Lambda Ratio, S1.14Czemjx1.26-1.65The [facility] Hospital Physician GroupComment on above:Result Comment: Performed at: - [facility] [id number] Parking Control Officer: Chad Mccall PhD, Phone: [phone] PERFORMED BY: [place] [address] PATHOLOGIST INDUSTRIAL RELATIONS SPECIALIST DANIELLE QUINONES M.D.Performed By: #### JEREMY DAVILA IFE SERUM #### [facility] ,Glucose [Mass/volume] in Serum or Plasmaon 88-56-4996Uccvsjt [Mass/Vol]106 mg/tVLtnq36-363BAFQ HealthcareComment on above:Random Glucose Reference Range is [...] By: #### SCAN CBC, LDH, CMP #### [facility] [address] [id number] USAHematocrit [Volume Fraction] of Blood by Automated count Ordered By: Christian Carlos on 68-72-5061Mpxrxcykwt (Bld) [Volume fraction] 38.6 %Low38.8-50.0[facility] Community HospitalComment on above:Performed By: #### SCAN CBC, LDH, CMP #### [facility] [address] [id number] USAHemoglobin [Mass/volume] in BloodOrdered By: Christian Carlos on 96-13-5918Qwpfmbznmv (Bld) [Mass/Vol]13.6 g/vHRysknf71.0-17.0 [facility] HospitalComment on above:Performed By: #### SCAN CBC, LDH, CMP #### [place] [id number] USAINR in Platelet poor plasma by Coagulation assayOrdered By: Christian Carlos on 36-69-8372PJN Coag (PPP) [Relative time]1.0 {INR}Normal [facility] Medical CenterComment on above:INR Therapeutic Range A) Pre- and [...] By: #### SCAN CBC, LDH, CMP #### [facility] [address] [place] [address] USAImmunofixation,Serumon 26-99-9686Dbqrtrpjimfgwi, Serum CommentNormal.[facility] Physician GroupComment on above:Result Comment: No monoclonality detected.Performed By: #### SPE, KAPPA, JIGAR SERUM #### [facility] ,Immunoglobulin A, Wlpxv797 mg/wAFofmoc58-017Nln [facility] Comment on above:Performed By: #### SPE, KAPPA, JIGAR SERUM #### [facility] ,Immunoglobulin G714 mg/tCXtgctg039-9734Qsd [facility] Physician GroupComment on above:Performed By: #### SPE, KAPPA, JIGAR SERUM #### [facility] ,Immunoglobulin M, Serum24 mg/eANkkihm74-792Vvb [facility] Physician GroupComment on above:Result Comment: Result confirmed on concentration. Performed at: [email or web address] [id number] Parking Control Officer: Chad Mccall PhD, Phone: [phone] By: #### SPE, KAPPA, JIGAR SERUM #### [facility] ,Leukocytes [#/volume] corrected for nucleated erythrocytes in Blood by Automated counOrdered By: Christian Carlos on 48-39-9733FYA corrected for nucl RBC Auto (Bld) [#/Vol]20.7 10*3/uLHigh4.1-10.5FFostoria City Hospital Leukocytes [#/volume] in Blood by Automated countOrdered By: Christian Carlos on 46-25-1082EIR (Bld) [#/Vol]20.7 10*3/uLHigh4.1-10.5FFostoria City HospitalComment on above:Performed By: #### SCAN CBC, LDH, CMP #### [facility] [address] [place] [address] USALymphocytes Auto (Bld) [#/Vol]Ordered By: Christian Carlos on 44-87-1746Afdslzdwksd (Bld) [#/Vol]N/[facility]. Anthony's HospitalLymphocytes/100 WBC Auto (Bld)Ordered By: Christian Carlos on 02-10-2025 Lymphocytes/100 WBC (Bld)N/[facility]. Anthony's HospitalLymphocytes/100 leukocytes in Blood by Manual countOrdered By: Christian Carlos on 02-10-2025 Lymphocytes/100 WBC (Bld)69 %Ylgk72-39JcboicyaoBucyrus Community HospitalComment on above:Performed By: #### SCAN CBC, LDH, CMP #### [facility] [address] [place] [address] [facility] [Entitic mass] by Automated countOrdered By: Christian Carlos on 10-09-4390CXZ (RBC) [Entitic mass]34.2 suAiuoyt03.5-35.2FFostoria City HospitalComment on above:Performed By: #### SCAN CBC, LDH, CMP #### [facility] [address] [place] [id number] [facility] Auto (RBC) [Mass/Vol]Ordered By: Christian Carlos on 53-43-2906VAWW (RBC) [Mass/Vol]35.2 g/dL32.5-35.6FFostoria City HospitalMCV [Entitic volume] by Automated countOrdered By: Christian Carlos on 97-02-3204PWC (RBC) [Entitic vol]97.2 oEVdqcxo00.5-101Bu[facility] Community HospitalComment on above:Performed By: #### SCAN CBC, LDH, CMP #### [facility] [address] [place] [id number] USAMonocytes Auto (Bld) [#/Vol]Ordered By: Christian Carlos on 75-07-5777Pkdbrvkvp (Bld) [#/Vol]N/[facility] Monocytes/100 WBC Auto (Bld)Ordered By: Christian Carlos on 02-10-2025 Monocytes/100 WBC (Bld)N/[facility]. Anthony's HospitalMonocytes/100 leukocytes in Blood by Manual countOrdered By: Christian Carlos on 02-10-2025 Monocytes/100 WBC (Bld)5 %Normal2-11[facility] Community HospitalComment on above:Performed By: #### SCAN CBC, LDH, CMP #### [facility] [address] [place] [phone] USANeutrophils Auto (Bld) [#/Vol]Ordered By: Christian Carlos on 20-15-4885Xjgobkjhihc (Bld) [#/Vol]N/[facility]. Anthony's HospitalNeutrophils/100 WBC Auto (Bld)Ordered By: Christian Carlos on 02-10-2025 Neutrophils/100 WBC (Bld)N/[facility]. Anthony's HospitalNo Panel InformationOrdered By: Christian Carlos on 19-24-9392Wuawfkshelcpv Pathology TestSee commentBucyrus Community HospitalComment on above:See report. Scanned copy available in EMR.Estimated GFR (CKD-EPI)> 60.0 mL/MinBucyrus Community HospitalPharmacy Creatinine Clearance (Chem93.99Bu[facility] Community HospitalProtein Electrophoresis M-SpikeNot observed g/dLNot ObservedBucyrus Community HospitalProtein Electrophoresis NoteComment. [facility] Community HospitalComment on above:Protein electrophoresis scan will follow via computer,mail, or hydroelectric plant operator delivery.No Panel Informationon 64-40-5934GBBF HealthcareNucleated erythrocytes [Presence] in Blood by Automated countOrdered By: Christian Carlos on 36-06-5882Ehzzywcfn RBC Auto Ql (Bld)N/A [facility] HospitalOvalocytes [Presence] in Blood by Light microscopyOrdered By: Christian Carlos on 55-79-3408Ihdurjiihb LM Ql (Bld) SlightBucyrus Community HospitalPathology Request for Lab Corpon 37-94-3158Xvoegysif Request for Lab CorpPhysicians [facility] Physician Group Comment on above:Result Comment: See report. Scanned copy available in EMR. PERFORMED BY: [place] [address] PATHOLOGIST INDUSTRIAL RELATIONS SPECIALIST DANIELLE QUINONES M.D.Performed By: #### SCAN CBC, LDH, CMP #### [facility] [address] [place] [address] USAPlatelet adequacy [Presence] in Blood by Light microscopy Ordered By: Christian Carlos on 93-68-9107Tjxbspkdb LM Ql (Bld)NormalNormal [facility] Community HospitalPlatelet mean volume [Entitic volume] in Blood by Automated countOrdered By: Christian Carlos on 18-38-8765Sfhevglf mean volume (Bld) [Entitic vol]7.4 fLNormal6.6-10.1FFostoria City Hospital Comment on above:Result Comment: PERFORMED BY: [place] [address] PATHOLOGIST INDUSTRIAL RELATIONS SPECIALIST DANIELLE QUINONES M.D.Performed By: #### SCAN CBC, LDH, CMP #### [facility] [address] [place] [address] USAPlatelet morphology finding [Identifier] in BloodOrdered By: Christian Carlos on 10-30-5933Yfxnxqgd morphology finding Nom (Bld)Normal [place] HospitalPlatelets [#/volume] in Blood by Automated countOrdered By: Christian Carlos on 34-02-9083Btoqjixvb (Bld) [#/Vol]158 10*3/aDUhawix520-512TilodhishBucyrus Community HospitalComment on above:Performed By: #### SCAN CBC, LDH, CMP #### [facility] [address] [place] [address] USAPoikilocytosis [Presence] in Blood by Light microscopy Ordered By: Christian Carlos on 85-59-2964Ekoyyppupxfelr LM Ql (Bld)Slight [facility] Community HospitalPolychromasia [Presence] in Blood by Light microscopyOrdered By: Christian Carlos on 30-72-6320Kigqtyxuzdchx LM Ql (Bld) SlightBucyrus Community HospitalPotassium [Moles/volume] in Serum or Plasmaon 31-09-1551Vxbjerlsv [Moles/Vol]3.8 mmol/LNormal3.5-5.1[facility] Comment on above:Performed By: #### SCAN CBC, LDH, CMP #### [facility] [address] [place] [id number] USAProtein Electrophoresis, Serumon 02-10-2025 Aerps-4-Vjgjuixq1.3 g/dLNormal0.0-0.4[facility] Physician GroupComment on above:Performed By: #### SPE, KAPPA, JIGAR SERUM #### [facility] ,Aiwmi-6-Oqxnwakp8.5 g/dLNormal0.4-1.0[facility] Physician GroupComment on above:Performed By: #### SPE, KAPPA, JIGAR SERUM #### [facility] ,Beta Globulin0.9 g/dLNormal0.7-1.3[facility] Physician GroupComment on above:Performed By: #### SPE, KAPPA, JIGAR SERUM #### [facility] ,Gamma Globulin0.7 g/dLNormal0.4-1.8[facility] Physician GroupComment on above:Performed By: #### SPE, KAPPA, JIGAR SERUM #### [facility] ,M-SpikeNot ObservedNormalNot ObservedThe [facility] Hospital Physician GroupComment on above:Performed By: #### SPE, KAPPA, JIGAR SERUM #### [facility] ,SPE-NoteCommentNormal.[facility] Physician GroupComment on above:Result Comment: Protein electrophoresis scan will follow via computer, mail, or hydroelectric plant operator delivery.Performed By: #### SPE, KAPPA, JIGAR SERUM #### [facility] ,Protein [Mass/volume] in Serum or Plasmaon 60-81-5180Bewwzsi [Mass/Vol]6.7 g/dL Normal6.4-8.9[facility] InstituteComment on above:Performed By: #### SCAN CBC, LDH, CMP #### [facility] [address] [place] [id number] USAProthrombin time (PT)Ordered By: Christian Carlos on 26-46-1269UA Coag (PPP) [Time]11.1 sNormal9.0-12.9Bu[facility]rus Community HospitalComment on above:A hematocrit value greater than 55% may lead to inaccurate results in coagulation testing. Patientshaving hematocrit values >55% require a special collection tube for coagulation studies. Please contact the laboratory at [phone] for redraw instructions.Order Comment: STAT FOR CT Result Comment: A hematocrit value greater than 55% may lead to inaccurate results in coagulation testing. Patients having hematocrit values >55% require a special collection tube for coagulation studies. Please contact the laboratory at [phone] for redraw instructions.Performed By: #### SCAN CBC, LDH, CMP #### [facility] [address] [place] [address] USASegmented neutrophils/100 leukocytes in Blood by Manual countOrdered By: Christian Carlos on 99-02-6352Nmpiaoyvh neutrophils/100 WBC (Bld)25 %Iyj79-73YylbkkukiBucyrus Community HospitalComment on above:Performed By: #### SCAN CBC, LDH, CMP #### [facility] [address] [place] [address] USASerum free kappa light chain measurementOrdered By: Christian Carlos on 27-49-2278Dflbjanrjokeeh light chains.kappa.free (S) [Mass/Vol]16.3 mg/L3.3-19.4FMount Carmel Health Systemerum globulin measurement (mass/volume)Ordered By: Christian Carlos on 05-81-9850Itwlyaib (S) [Mass/Vol]2.3 g/dLNormal2.2-3.9Bu[facility] Community HospitalComment on above:Performed By: #### SPE, KAPPA, JIGAR SERUM #### [facility] ,Serum globulin measurement by calculation (mass/volume)Ordered By: Christian Carlos on 00-06-8529Gglelyzu (S) [Mass/Vol]2.0 g/dLNoalBucyrus Community HospitalComment on above:Performed By: #### SCAN CBC, LDH, CMP #### [facility] [address] [place] [address] USASerum immunoglobulin free kappa light chains/immunoglobulin free lambda light chainsOrdered By: Christian Carlos on 54-23-9689Axnfsebtkpgpct light chains.kappa.free/Immunoglobulin light chains.lambda.free (S) [Mass ratio]1.540.26-1.65Bucyrus Community HospitalComment on above:Performed at: [facility] [place], [place] [id number] Director: Chad Mccall PhD, Phone: [phone] or plasma IgA measurement (mass/volume)Ordered By: Christian Carlos on 96-29-4336LsX [Mass/Vol]146 mg/wS37-793QrbpbmvsrUniversity Hospitals Conneaut Medical Centererum or plasma IgG measurement (mass/volume)Ordered By: Christian Carlos on 02-10-2025 IgG [Mass/Vol]714 mg/mH139-3158UdsbeufmdUniversity Hospitals Conneaut Medical Centererum or plasma IgM measurement (mass/volume)Ordered By: Christian Carlos on 11-85-4693ZyD [Mass/Vol]24 mg/wL88-635DrhmwamfxBucyrus Community HospitalComment on above:Result confirmed on concentration.Performed at: [facility] [place], [place] [id number] Director: Chad Mccall PhD, Phone: [phone] or plasma albumin measurement (mass/volume)Ordered By: Christian Carlos on 08-77-6629Bvzhoqv [Mass/Vol]4.0 g/dLNormal2.9-4.4FFostoria City HospitalComment on above:Performed By: #### SPE, KAPPA, JIGAR SERUM #### [facility] ,Serum or plasma albumin/globulin mass ratioon 37-73-1203Bdjsrku/Globulin [Mass ratio]2.4 {ratio}NormalNONV HealthcareComment on above:Performed By: #### SCAN CBC, LDH, CMP #### [facility] [address] [place] [phone] USASerum or plasma albumin/globulin mass ratioOrdered By: Christian Carlos on 91-90-9282Ilqvxvm/Globulin [Mass ratio]1.7 {ratio}Normal 0.7-1.7FFostoria City HospitalComment on above:Performed By: #### SPE, KAPPA, JIGAR SERUM #### [facility] ,Serum or plasma alpha 1 globulin measurement by electrophoresis (mass/volume) Ordered By: Christian Carlos on 61-84-9333Adfvt 1 globulin Elph [Mass/Vol]0.3 g/dL0.0-0.4FMount Carmel Health Systemerum or plasma alpha 2 globulin measurement by electrophoresis (mass/volume)Ordered By: Christian Carlos on 22-18-6697Uqojy 2 globulin Elph [Mass/Vol]0.5 g/dL0.4-1.0[facility] Hospitals Conneaut Medical Centererum or plasma anion gap determinationon 20-51-1251Ivukq gap [Moles/Vol]9.2 mmol/LNormal6.0-15.0NONV HealthcareComment on above:Performed By: #### SCAN CBC, LDH, CMP #### [facility] [address] [place] [phone] USASerum or plasma beta globulin measurement by electrophoresis (mass/volume)Ordered By: Christian Carlos on 18-53-7271Rzul globulin Elph [Mass/Vol]0.9 g/dL0.7-1.3FMount Carmel Health Systemerum or plasma gamma globulin measurement by electrophoresis (mass/volume)Ordered By: Christian Carlos on 27-03-4194Bmxef globulin Elph [Mass/Vol]0.7 g/dL0.4-1.8 [facility] Medical Centererum or plasma immunoglobulin free lambda light chains measurement (mass/volume)Ordered By: Christian Carlos on 72-06-4673Kbhfyfbnnicxxr light chains.lambda.free [Mass/Vol]10.6 mg/L5.7-26.3 [facility] Medical Centererum total protein measurementOrdered By: Christian Carlos on 38-56-0822Pgigsxg [Mass/Vol]6.3 g/dLNormal6.0-8.5FFostoria City HospitalComment on above:Performed By: #### SPE, KAPPA, JIGAR SERUM #### [facility] ,Sodium [Moles/volume] in Serum or Plasmaon 07-56-3262Sgqxqy [Moles/Vol]140 mmol/CFgidkh367-114IJML HealthcareComment on above:Performed By: #### SCAN CBC, LDH, CMP #### [facility] [address] [place] [address] USAUrea nitrogen [Mass/volume] in Serum or Plasmaon 41-40-2979Svhc nitrogen [Mass/Vol]22 mg/dLNormal7-25NONV HealthcareComment on above:Performed By: #### SCAN CBC, LDH, CMP #### [facility] [address] [place] [phone] USAaPTT in Platelet poor plasma by Coagulation assayOrdered By: Christian Carlos on 45-71-8837zXPE Coag (PPP) [Time]30.1 s25.1-36.5 [facility] Community HospitalComment on above:A hematocrit value greater than 55% may lead to inaccurate results in coagulation testing. Patientshaving hematocrit values >55% require a special collection tube for coagulation studies. Please contact the laboratory at [phone] for redraw instructions. FLOWCYTOMETRY PAGE HOSPITALGENOMIC 41-57-9683YGDJVGADUKTAR [facility] Comment on above:See report. Scanned copy available in EMR.[facility] Alanine aminotransferase [Enzymatic activity/volume] in Serum or PlasmaOrdered By: Christian Carlos on 99-37-3430AYD [Catalytic activity/Vol]30 U/LNormal7-52 [facility] HospitalComment on above:Performed By: #### SCAN CBC, LDH, CMP #### [facility] [address] [place] [phone] USAAlbumin [Mass/volume] in Serum or Plasma by Bromocresol green (BCG) dye binding methoOrdered By: Christian Carlos on 81-19-1163Gkjoxxh BCG dye [Mass/Vol]4.4 g/dL3.5-5.7FFostoria City HospitalAlkaline phosphatase [Enzymatic activity/volume] in Serum or PlasmaOrdered By: Christian Carlos on 80-37-7431DKY [Catalytic activity/Vol]86 U/AFxebom17-460JkcwjpuexBucyrus Community HospitalComment on above:Performed By: #### SCAN CBC, LDH, CMP #### [facility] [address] [place] [address] USAAspartate aminotransferase [Enzymatic activity/volume] in Serum or PlasmaOrdered By: Christian Carlos on 03-10-3434JMU [Catalytic activity/Vol]33 U/VJbkwca54-21ElsrqejwdBucyrus Community HospitalComment on above: Performed By: #### SCAN CBC, LDH, CMP #### [facility] [address] [place] [address] USABand form neutrophils/100 leukocytes in Blood by Manual countOrdered By: Christian Carlos on 54-76-0423Ubjc form neutrophils/100 WBC (Bld)2 %Normal0-5FFostoria City HospitalComment on above:Performed By: #### SCAN CBC, LDH, CMP #### [place] [address] USABasophils Auto (Bld) [#/Vol]Ordered By: Christian Carlos on 55-64-7999Ltfdujcjr (Bld) [#/Vol]N/[facility] Basophils/100 WBC Auto (Bld)Ordered By: Christian Carlos on 01-13-2025 Basophils/100 WBC (Bld)N/[facility]. Anthony's HospitalBilirubin.total [Mass/volume] in Serum or PlasmaOrdered By: Christian Carlos on 01-13-2025 Bilirubin [Mass/Vol]1.7 mg/dLHigh0.3-1.0[facility] HospitalComment on above:Samples from patients who have [...] By: #### SCAN CBC, LDH, CMP #### [place] [address] USACalcium [Mass/volume] in Serum or PlasmaOrdered By: Christian Carlos on 96-51-6308Xejozsy [Mass/Vol]9.0 mg/dLNormal8.6-10.3 [facility] HospitalComment on above:Performed By: #### SCAN CBC, LDH, CMP #### [place] [address] USACarbon dioxide, total [Moles/volume] in Serum or Plasma Ordered By: Christian Carlos on 14-90-4757FE9 [Moles/Vol]33.8 mmol/LHigh 21.0-31.0[facility] HospitalComment on above:Performed By: #### SCAN CBC, LDH, CMP #### [place] [address] USAChloride [Moles/volume] in Serum or PlasmaOrdered By: Christian Carlos on 40-93-2712Mzlfyvxq [Moles/Vol]104 mmol/UVqvbma31-936 [facility] HospitalComment on above:Performed By: #### SCAN CBC, LDH, CMP #### [place] [address] USAComprehensive Metabolic Panelon 36-09-5452Rtdwieg [Mass/Vol]4.4 g/dLNormal3.5-5.7[facility] Physician GroupComment on above: Performed By: #### SCAN CBC, LDH, CMP #### [place] [address] USACreatinine Clr Calc Fgslxdgq45.09NoNovant Health/NHRMC Physician GroupComment on above:Performed By: #### SCAN CBC, LDH, CMP #### [facility] [address] [place] [address] USAGFR/1.73 sq M.predicted MDRD (S/P/Bld) [Vol rate/Area] mL/min/{1.73_m2}NormalThe Sloop Memorial Hospital Physician GroupComment on above:Performed By: #### SCAN CBC, LDH, CMP #### [facility] [address] [place] [address] USAComprehensive metabolic panelon 94-25-2568Epkjmjo [Mass/Vol]4.4 g/dL3.5 - 5.7 g/dLNOMS HealthcareAlbumin/Globulin [Mass ratio]2.6 {ratio}NOM HealthcareALP [Catalytic activity/Vol]86 U/L34 - 104 U/LNOMS HealthcareALT [Catalytic activity/Vol]30 U/L7 - 52 U/LNOMS HealthcareAnion gap [Moles/Vol]7.3 mmol/L6.0 - 15.0 meq/LNOMS HealthcareAST [Catalytic activity/Vol] 33 U/L13 - 39 U/LNOMS HealthcareBilirubin [Mass/Vol]1.7 mg/dLHigh0.3 - 1.0 mg/dL [facility] HealthcareComment on above:Samples from patients who have taken Naproxen have shown spurious elevation in Total Bilirubin levels. A metabolite of Naproxen, O-desmethylnaproxen, has been shown to interfere with the Jenjoryik-Groleslie method for measuring Total Bilirubin. Calcium [Mass/Vol]9 mg/dL8.6 - 10.3 mg/dLNOMS HealthcareChloride [Moles/Vol]104 mmol/L98 - 107 mmol/LNOMS HealthcareCO2 [Moles/Vol]33.8 mmol/LHigh21.0 - 31.0 mmol/LNOMS HealthcareCreatinine (U) [Mass/Vol]0.95 mg/dL0.70 - 1.30 mg/dLNONV HealthcareCREATININE CLR CALC PATLQJHE71.09NOMS HealthcareESTIMATED GFRmL/Min NOMS HealthcareGlobulin (S) [Mass/Vol]1.7 g/dLNOMS HealthcareGlucose [Mass/Vol] 95 mg/dL70 - 100 mg/dLNOMS HealthcareComment on above:Random Glucose Reference Range is dependent on time and content of last meal. Glucose of more than 200 mg/dL in a nonstressed, ambulatory subject supports the diagnosis of Diabetes Mellitus. ADA recommended reference range Potassium [Moles/Vol]4.1 mmol/L3.5 - 5.1 mmol/LNOMS HealthcareProtein [Mass/Vol] 6.1 g/dLLow6.4 - 8.9 g/dLNOMS HealthcareSodium [Moles/Vol]141 mmol/L136 - 145 mmol/LNOMS HealthcareUrea nitrogen [Mass/Vol]14 mg/dL7 - 25 mg/dLNONV Healthcare Creatinine [Mass/volume] in Serum or PlasmaOrdered By: Christian Carlos on 18-98-9119Brmqdjivbu [Mass/Vol]0.95 mg/dLNormal0.70-1.30[facility] Community HospitalComment on above:Performed By: #### SCAN CBC, LDH, CMP #### [place] [address] USADiff and CBCon 17-04-8140Yznmc Platelet Tally1 /100{WBC} NormalThe [facility]loop [facility] Hospital Physician GroupComment on above:Performed By: #### SCAN CBC, LDH, CMP #### [place] [address] USAMean Corpuscular HGB Conc35.6 g/nFHyntra23.5-35.6[facility] Physician GroupComment on above:Performed By: #### SCAN CBC, LDH, CMP #### [facility] [address] [place] [phone] USAPlatelet EstimateDecreasedNormalNormHCA Florida Northside Hospital Physician GroupComment on above:Performed By: #### SCAN CBC, LDH, CMP #### [place] [address] USAPlatelet MorphologyNormalNormalNormHCA Florida Northside Hospital Physician GroupComment on above:Result Comment: PERFORMED BY: [place] [address] PATHOLOGIST INDUSTRIAL RELATIONS SPECIALIST SUSAN FREGOSO M.D.Performed By: #### SCAN CBC, LDH, CMP #### [facility] [address] [place] [address] USAReactive Lymphocytes2 %Normal0-12[facility] Physician GroupComment on above:Performed By: #### SCAN CBC, LDH, CMP #### [facility] [address] [place] [address] USAEosinophils Auto (Bld) [#/Vol]Ordered By: Christian Carlos on 57-90-5657Kwevowqjoea (Bld) [#/Vol]N/[facility]. [facility]'s HospitalEosinophils/100 WBC Auto (Bld)Ordered By: Christian Carlos on 01-13-2025 Eosinophils/100 WBC (Bld)N/[facility]. Anthony's HospitalEosinophils/100 leukocytes in Blood by Manual countOrdered By: Christian Carlos on 01-13-2025 Eosinophils/100 WBC (Bld)4 %High153 Ford StreetComment on above:Performed By: #### SCAN CBC, LDH, CMP #### [facility] [address] [place] [address] USAErythrocyte distribution width [Ratio] by Automated count Ordered By: Christian Carlos on 25-28-3112Xxscpoirnqn distribution width (RBC) [Ratio]14.0 %Aaqfuh83.0-14.8[facility] Community HospitalComment on above: Performed By: #### SCAN CBC, LDH, CMP #### [facility] [address] [place] [address] USAErythrocyte morphology finding [Identifier] in Blood Ordered By: Christian Carlos on 69-16-1314YBS morphology finding Nom (Bld) NormalNormalNormalBucyrus Community HospitalComment on above:Performed By: #### SCAN CBC, LDH, CMP #### [facility] [address] [place] [address] USAErythrocytes [#/volume] in Blood by Automated countOrdered By: Christian Carlos on 19-98-0438SYL (Bld) [#/Vol]4.15 10*6/uLNormal3.90-5.60 [facility] HospitalComment on above:Performed By: #### SCAN CBC, LDH, CMP #### [facility] [address] [place] [address] USAFlowcytometry [employer] 44-96-7545Aeftoijbketgi NeogenomicPhysicians Regional Medical Center - Pine Ridge Physician GroupComment on above:Result Comment: See report. Scanned copy available in EMR. PERFORMED BY: [place] [address] PATHOLOGIST INDUSTRIAL RELATIONS SPECIALIST DANIELLE QUINONES M.D.Performed By: #### FLOW NEOGENOMIC #### [place] [address] USAGiant platelets/100 leukocytes [Ratio] in Blood by Manual countOrdered By: Christian Carlos on 59-27-3591Qnebk platelets/100 WBC Manual cnt (Bld) [Ratio]1 /100{WBC}[facility] Community HospitalGlucose [Mass/volume] in Serum or PlasmaOrdered By: Christian Carlos on 01-13-2025 Glucose [Mass/Vol]95 mg/aDWgbmrf27-365BlrindkyfBucyrus Community HospitalComment on above:ADA recommended reference rangeRandom Glucose [...] By: #### SCAN CBC, LDH, CMP #### [facility] [address] [place] [address] USAHematocrit [Volume Fraction] of Blood by Automated count Ordered By: Christian Carlos on 63-95-5554Irodehfbdk (Bld) [Volume fraction] 38.7 %Low38.8-50.0[facility] Community HospitalComment on above:Performed By: #### SCAN CBC, LDH, CMP #### [facility] [address] [place] [address] USAHemoglobin [Mass/volume] in BloodOrdered By: Christian Carlos on 40-58-0906Susqmxybpw (Bld) [Mass/Vol]13.8 g/aUCfjfdu80.0-17.0 [facility] HospitalComment on above:Performed By: #### SCAN CBC, LDH, CMP #### [facility] [address] [place] [address] USALDH Lactate Dehydrogenaseon 15-58-3706JCW Lactate Cpszktltoyvcn596 U/BBovi518-979Ufv [facility] Physician GroupComment on above: Result Comment: PERFORMED BY: [facility] [address] [place] [address] PATHOLOGIST INDUSTRIAL RELATIONS SPECIALIST SUSAN FREGOSO M.D.Performed By: #### SCAN CBC, LDH, CMP #### [facility] [address] [place] [phone] USALDH Lactate to pyruvate reaction [Catalytic activity/Vol] on 13-76-7942GCC LACTATE SWSUXBKZLXMCY480 U/BUtdt120 - 271 U/[facility] Lactate dehydrogenase [Enzymatic activity/volume] in Serum or Plasma by Lactate to pyOrdered By: Christian Carlos on 46-32-4432JAZ Lactate to pyruvate reaction [Catalytic activity/Vol]310 U/PXiej554-830SxuivtzouBucyrus Community Hospital Leukocytes [#/volume] corrected for nucleated erythrocytes in Blood by Automated counOrdered By: Christian Carlos on 51-57-3277JIT corrected for nucl RBC Auto (Bld) [#/Vol]16.9 10*3/uLHigh4.1-10.5FFostoria City HospitalLeukocytes [#/volume] in Blood by Automated countOrdered By: Christian Carlos on 78-86-7697QVJ (Bld) [#/Vol]16.9 10*3/uLHigh4.1-10.5FFostoria City HospitalComment on above:Performed By: #### SCAN CBC, LDH, CMP #### [facility] [address] [place] [address] USALymphocytes Auto (Bld) [#/Vol]Ordered By: Christian Carlos on 85-85-6380Rtiwgcxrfpn (Bld) [#/Vol]N/[facility]. Anthony's HospitalLymphocytes/100 WBC Auto (Bld)Ordered By: Christian Carlos on 01-13-2025 Lymphocytes/100 WBC (Bld)N/[facility] Anthony's HospitalLymphocytes/100 leukocytes in Blood by Manual countOrdered By: Christian Carlos on 01-13-2025 Lymphocytes/100 WBC (Bld)48 %Shtg73-47UqibzkqzuBucyrus Community HospitalComment on above:Performed By: #### SCAN CBC, LDH, CMP #### [facility] [address] [Entitic mass] by Automated countOrdered By: Christian Carlos on 48-38-9268OYP (RBC) [Entitic mass]33.1 ioYrpigz00.5-35.2FFostoria City HospitalComment on above:Performed By: #### SCAN CBC, LDH, CMP #### [facility] [address] Auto (RBC) [Mass/Vol]Ordered By: Christian Carlos on 82-90-1489EPZI (RBC) [Mass/Vol]35.6 g/dL32.5-35.6FFostoria City HospitalMCV [Entitic volume] by Automated countOrdered By: Christian Carlos on 05-57-7856ZOT (RBC) [Entitic vol]93.1 jNBxrmuu75.5-101Bu[facility] Community HospitalComment on above:Performed By: #### SCAN CBC, LDH, CMP #### [facility] [address] [place] [address] USAMonocytes Auto (Bld) [#/Vol]Ordered By: Christian Carlos on 69-33-7926Fukvakjbl (Bld) [#/Vol]N/[facility] Monocytes/100 WBC Auto (Bld)Ordered By: Christian Carlos on 01-13-2025 Monocytes/100 WBC (Bld)N/[facility] Anthony's HospitalMonocytes/100 leukocytes in Blood by Manual countOrdered By: Christian Carlos on 01-13-2025 Monocytes/100 WBC (Bld)6 %Normal2-11[facility] HospitalComment on above:Performed By: #### SCAN CBC, LDH, CMP #### [facility] [address] [place] [address] USANeutrophils Auto (Bld) [#/Vol]Ordered By: Christian Carlos on 99-86-5967Zemiirwswgg (Bld) [#/Vol]N/[facility] Anthony's HospitalNeutrophils/100 WBC Auto (Bld)Ordered By: Christian Carlos on 01-13-2025 Neutrophils/100 WBC (Bld)N/[facility] Anthony's HospitalNo Panel Informationon 90-30-1875Fmvovphkvzckid and review of laboratory resultsAbnormHayward Area Memorial Hospital - [facility] Panel InformationOrdered By: Christian Carlos on 90-70-1018Slpiphcef GFR (CKD-EPI)> 60.0 mL/MinBucyrus Community HospitalPharmacy Creatinine Clearance (Chem85.09[facility] Nucleated erythrocytes [Presence] in Blood by Automated countOrdered By: Christian Carlos on 64-87-4581Vswvhndkr RBC Auto Ql (Bld)N/[facility]. Anthony's HospitalPlatelet adequacy [Presence] in Blood by Light microscopyOrdered By: Christian Carlos on 98-10-1648Etglenztf LM Ql (Bld)DecreasedNormalBucyrus Community HospitalPlatelet mean volume [Entitic volume] in Blood by Automated countOrdered By: Christian Carlos on 85-59-0044Cyhnafmo mean volume (Bld) [Entitic vol]7.3 fLNormal6.6-10.1FFostoria City HospitalComment on above:Performed By: #### SCAN CBC, LDH, CMP #### [facility] [address] [place] [address] USAPlatelet morphology finding [Identifier] in BloodOrdered By: Christian Carlos on 09-80-1432Troujwqe morphology finding Nom (Bld)Normal NormalBucyrus Community HospitalPlatelets [#/volume] in Blood by Automated countOrdered By: Christian Carlos on 42-94-2106Oaakkcvte (Bld) [#/Vol]136 10*3/rPFdm267-198LpvcmlsuqBucyrus Community HospitalComment on above: Performed By: #### SCAN CBC, LDH, CMP #### [facility] [address] [place] [address] USAPotassium [Moles/volume] in Serum or PlasmaOrdered By: Christian Carlos on 68-43-2160Ecvromcgt [Moles/Vol]4.1 mmol/LNormal3.5-5.1 [facility] HospitalComment on above:Performed By: #### SCAN CBC, LDH, CMP #### [facility] [address] [place] [address] USAProtein [Mass/volume] in Serum or PlasmaOrdered By: Christian Carlos on 87-83-0738Kprwiwp [Mass/Vol]6.1 g/dLLow6.4-8.9[facility] HospitalComment on above:Performed By: #### SCAN CBC, LDH, CMP #### [facility] [address] [place] [address] USASegmented neutrophils/100 leukocytes in Blood by Manual countOrdered By: Christian Carlos on 32-86-4683Hmuoklezk neutrophils/100 WBC (Bld)39 %Bsx26-72DrapztvhdBucyrus Community HospitalComment on above:Performed By: #### SCAN CBC, LDH, CMP #### [facility] [address] [place] [address] USASerum globulin measurement by calculation (mass/volume) Ordered By: Christian Carlos on 38-33-5917Amqfyzjm (S) [Mass/Vol]1.7 g/dLNormal [facility] HospitalComment on above:Performed By: #### SCAN CBC, LDH, CMP #### [facility] [address] [place] [address] USASerum or plasma albumin/globulin mass ratioOrdered By: Christian Carlos on 11-74-7578Bljkgfw/Globulin [Mass ratio]2.6 {ratio}Normal [facility] HospitalComment on above:Performed By: #### SCAN CBC, LDH, CMP #### [facility] [address] [place] [phone] USASerum or plasma anion gap determinationOrdered By: Christian Carlos on 01-20-3076Eyzub gap [Moles/Vol]7.3 mmol/LNormal6.0-15.0[facility] HospitalComment on above:Performed By: #### SCAN CBC, LDH, CMP #### [facility] [address] [place] [address] USASodium [Moles/volume] in Serum or PlasmaOrdered By: Christian Carlos on 32-87-4453Azcbbr [Moles/Vol]141 mmol/UGmmkvs140-817 [facility] HospitalComment on above:Performed By: #### SCAN CBC, LDH, CMP #### [place] [address] USAUrea nitrogen [Mass/volume] in Serum or PlasmaOrdered By: Christian Carlos on 95-77-2995Dqwm nitrogen [Mass/Vol]14 mg/dLNormal7 [facility] HospitalComment on above:Performed By: #### SCAN CBC, LDH, CMP #### [place] [id number] USAVariant lymphocytes/100 WBC Manual cnt (Bld)Ordered By: Christian Carlos on 02-69-1491Nheemvp lymphocytes/100 WBC (Bld)2 %0-12[facility] HospitalA1C with Estimated Average Gluon 33-90-4070Gwrgckg [Mass/Vol]94 mg/dLNoNovant Health/NHRMC Physician GroupComment on above:Result Comment: PERFORMED BY: [place] [id number] PATHOLOGIST INDUSTRIAL RELATIONS SPECIALIST SUSAN FREGOSO M.D.Performed By: #### SCAN CBC, LDH, CMP #### [place] [id number] USAAlanine aminotransferase [Enzymatic activity/volume] in Serum or PlasmaOrdered By: Russell Gómez on 03-48-9035KHU [Catalytic activity/Vol] Alanine aminotransferase [Enzymatic activity/volume] in Serum or Plasma [facility] HospitalALT [Catalytic activity/Vol]28 U/LNormal [facility] HospitalComment on above:Performed By: #### LIPID, CHC CBC, EMP PSA, A1C WT eA, CMP #### [facility] [address] [place] [address] USAAlbumin [Mass/volume] in Serum or Plasma by Bromocresol green (BCG) dye binding methoOrdered By: Russell Gómez on 40-04-1571Alsakqo BCG dye [Mass/Vol]Albumin [Mass/volume] in Serum or Plasma by Bromocresol green (BCG) dye binding metho3.5-5.7FFostoria City HospitalAlbumin BCG dye [Mass/Vol]4.3 g/dL3.5-5.7FFostoria City HospitalAlkaline phosphatase [Enzymatic activity/volume] in Serum or PlasmaOrdered By: Russell Gómez on 32-83-7017BIL [Catalytic activity/Vol]Alkaline phosphatase [Enzymatic activity/volume] in Serum or Xawzlj27-130GgwvkswnhBucyrus Community HospitalALP [Catalytic activity/Vol]85 U/XZuvcxb05-241Vqjaruw[address] Comment on above:Result Comment: PERFORMED BY: [facility] [address] [place] [address] PATHOLOGIST INDUSTRIAL RELATIONS SPECIALIST SUSAN FREGOSO M.D.Performed By: #### LIPID, CHC CBC, EMP PSA, A1C WT eA, CMP #### [facility] [address] [place] [id number] USAAspartate aminotransferase [Enzymatic activity/volume] in Serum or PlasmaOrdered By: Russell Gómez on 06-48-2018EWS [Catalytic activity/Vol] Aspartate aminotransferase [Enzymatic activity/volume] in Serum or Xrrktb41-96 [facility] HospitalAST [Catalytic activity/Vol]29 U/YFszjmm39-82 [facility] HospitalComment on above:Performed By: #### LIPID, CHC CBC, EMP PSA, A1C WTH eA, CMP #### [facility] [address] [place] [address] USABasophils Auto (Bld) [#/Vol]Ordered By: Russell Gómez on 85-01-9919Sisfpoonn (Bld) [#/Vol]Automated basophil count0.0-0.2FFostoria City HospitalBasophils [#/volume] in Blood by Automated countOrdered By: Russell Gómez on 27-86-9964Lswfdycwd (Bld) [#/Vol]0.0 10*3/uLNormal0.0-0.2 [facility] HospitalComment on above:Result Comment: PERFORMED BY: [place] [address] PATHOLOGIST INDUSTRIAL RELATIONS SPECIALIST SUSAN FREGOSO M.D.Performed By: #### SCAN CBC, LDH, CMP #### [place] [address] USABasophils/100 WBC Auto (Bld)Ordered By: Russell Gómez on 08-18-0490Cepoqwmjx/100 WBC (Bld)Automated basophil %.[facility] HospitalBasophils/100 leukocytes in Blood by Automated countOrdered By: Russell Gómez on 94-45-9105Jhmnevdpt/100 WBC (Bld)0.2 %Normal.[facility] HospitalComment on above:Performed By: #### SCAN CBC, LDH, CMP #### [place] [address] USABilirubin.total [Mass/volume] in Serum or PlasmaOrdered By: Russell Gómez on 78-03-1462Cptafojhg [Mass/Vol]Bilirubin.total [Mass/volume] in Serum or Plasma0.3-1.0[facility] HospitalBilirubin [Mass/Vol]1.0 mg/dLNormal0.3-1.0[facility] HospitalComment on above:Performed By: #### LIPID, CHC CBC, EMP PSA, A1C WTH eA, CMP #### [place] [address] USABlood estimated average glucose determination by estimation from glycated hemoglobinOrdered By: Russell Gómez on 30-13-2969Byeuyqm glucose Estimated from glycated hemoglobin (Bld) [Mass/Vol]Glucose mean value [Mass/volume] in Blood Estimated from glycated hemoglobinBucyrus Community HospitalAverage glucose Estimated from glycated hemoglobin (Bld) [Mass/Vol]94 mg/dLBucyrus Community HospitalCalcium [Mass/volume] in Serum or PlasmaOrdered By: Russell Gómez on 16-13-4333Kvqhysc [Mass/Vol]Calcium [Mass/volume] in Serum or Plasma8.6-10.3FFostoria City HospitalCalcium [Mass/Vol]9.5 mg/dLNormal8.6-10.3FFostoria City HospitalComment on above:Performed By: #### LIPID, CHC CBC, EMP PSA, A1C WTH eA, CMP #### [facility] [address] [place] [address] USACarbon dioxide, total [Moles/volume] in Serum or Plasma Ordered By: Russell Gómez on 82-53-4068BE2 [Moles/Vol]Carbon dioxide, total [Moles/volume] in Serum or EobwbsQgbt65.0-31.0[facility] CO2 [Moles/Vol]34.1 mmol/LHigh21.0-31.0[facility] HospitalComment on above:Performed By: #### LIPID, CHC CBC, EMP PSA, A1C WTH eA, CMP #### [facility] [address] [place] [address] USAChloride [Moles/volume] in Serum or PlasmaOrdered By: Russell Gómez on 94-64-0317Gpnyrfuw [Moles/Vol]Chloride [Moles/volume] in Serum or Wnlizr66-030RhzkiprgiBucyrus Community HospitalChloride [Moles/Vol]104 mmol/L Zrizqp15-190Sxaulpjj[address] [place], [place] [address]Comment on above:Performed By: #### LIPID, CHC CBC, EMP PSA, A1C WTH eA, CMP #### [facility] [address] [place] [address] USACholesterol [Mass/volume] in Serum or PlasmaOrdered By: Russell Gómez on 34-22-3695Pctlobscpen [Mass/Vol]Cholesterol [Mass/volume] in Serum or Udgjra211-566HpilxaojhBucyrus Community HospitalComment on above:Chol less than 200 mg/dl low riskChol 201-239 mg/dl borderline riskChol 240 mg/dl and greater high riskCholesterol [Mass/Vol]169 mg/wOLhzxwv181-731XslfjzysiBucyrus Community HospitalComment on above:Chol less than 200 mg/dl low riskChol 201-239 mg/dl borderline riskChol 240 mg/dl and greater high riskResult Comment: Chol less than 200 mg/dl low risk Chol 201-239 mg/dl borderline risk Chol 240 mg/dl and greater high riskPerformed By: #### SCAN CBC, LDH, CMP #### [facility] [address] [place] [address] USACholesterol in HDL [Mass/volume] in Serum or PlasmaOrdered By: Russell Gómez on 86-58-8186Vidqitljkxe in HDL [Mass/Vol]Serum or plasma high density lipoprotein (HDL) cholesterol gaiyfnvhgmw09-44KmcacdgorBucyrus Community HospitalComment on above:HDL CHOL ATP-III CLASSIFICATION Cardiovascular RiskHDL > or equal to 60 mg/dL LOWHDL < 40 mg/dL HIGHCholesterol in HDL [Mass/Vol]59 mg/hRMnjgkd95-79AgnjszxetBucyrus Community HospitalComment on above:HDL CHOL ATP- III CLASSIFICATION Cardiovascular RiskHDL > or equal to 60 mg/dL LOWHDL < 40 mg/dL HIGHResult Comment: HDL CHOL ATP-III CLASSIFICATION Cardiovascular Risk HDL > or equal to 60 mg/dL LOW HDL < 40 mg/dL HIGHPerformed By: #### SCAN CBC, LDH, CMP #### [facility] [address] [place] [address] USACholesterol in LDL Calc [Mass/Vol]Ordered By: Russell Gómez on 49-83-0669Geospfeyzco in LDL [Mass/Vol]Cholesterol in LDL [Mass/volume] in Serum or Plasma by calculation0Bu[facility]rus Community HospitalComment on above:LDL ATP III CLASSIFICATIONLDL less than 100 mg/dL OptimalLDL 100-129 mg/dL Near or above xaymzjvTKU933-325 mg/dL Borderline highLDL 160-189 mg/dL HighLDL greater than 189 mg/dL Very highCholesterol in LDL [Mass/Vol]93 mg/dL0- [facility] HospitalComment on above:LDL ATP III CLASSIFICATIONLDL less than 100 mg/dL OptimalLDL 100-129 mg/dL Near or above wqfpxakUSN615-771 mg/dL Borderline highLDL 160-189 mg/dL HighLDL greater than 189 mg/dL Very high Cholesterol in VLDL Calc [Mass/Vol]Ordered By: Russell Gómez on 11-30-2024 Cholesterol in VLDL [Mass/Vol]Cholesterol in VLDL [Mass/volume] in Serum or Plasma by calculationBucyrus Community HospitalCholesterol in VLDL [Mass/Vol]17 mg/dLBucyrus Community HospitalComplete Blood Count no reflexon 05-24-4361Qzvy Corpuscular HGB Conc34.3 g/nCFoxzcm86.5-35.6[facility] Physician GroupComment on above:Performed By: #### SCAN CBC, LDH, CMP #### [facility] [address] [place] [address] USANRBC%0.2 /100{WBC}Normal0-0.5The [facility] Comment on above:Performed By: #### SCAN CBC, LDH, CMP #### [facility] [address] [place] [address] USAComprehensive Metabolic Panelon 02-32-0012Wleojos [Mass/Vol]4.3 g/dLNormal3.5-5.7[facility] Physician [facility] HospitalComment on above: Performed By: #### LIPID, CHC CBC, EMP PSA, A1C WTH eA, CMP #### [facility] [address] [place] [id number] USAGFR/1.73 sq M.predicted MDRD (S/P/Bld) [Vol rate/Area] mL/min/{1.73_m2}NormalThe [facility] Physician GroupComment on above:Performed By: #### LIPID, CHC CBC, EMP PSA, A1C WT eA, CMP #### [facility] [address] [place] [address] USACreatinine [Mass/volume] in Serum or PlasmaOrdered By: Russell Gómez on 15-03-2324Iyrgzcxwha [Mass/Vol]Creatinine [Mass/volume] in Serum or Plasma0.70-1.30[facility] HospitalCreatinine [Mass/Vol]0.81 mg/dLNormal0.70-1.30[facility] HospitalComment on above:Performed By: #### LIPID, CHC CBC, EMP PSA, A1C [facility] eA, CMP #### [facility] [address] [place] [id number] USAEmployee PSA Totalon 47-23-3787JYZ Total ([facility] Orders)0.650 ng/mLNormal0.000-4.000The [facility] Physician GroupComment on above:Result Comment: Serial tumor marker results determined by assays using different manufacturers or methods may not be comparable. [facility] Laboratory shoe lay out planner and method: [employer] DXI, CHEMILUMINESCENT IMMUNOASSAY. PERFORMED BY: [place] [address] PATHOLOGIST INDUSTRIAL RELATIONS SPECIALIST SUSAN FREGOSO M.D.Performed By: #### LIPID, CHC CBC, EMP PSA, A1C [facility] eA, CMP #### [facility] [address] [place] [address] USAEosinophils Auto (Bld) [#/Vol]Ordered By: Russell Gómez on 99-30-2267Gcjaxamcotd (Bld) [#/Vol]Automated eosinophil count0.0-0.45Bu[facility] HospitalEosinophils [#/volume] in Blood by Automated countOrdered By: Russell Gómez on 49-20-8732Cpqrblbqmwe (Bld) [#/Vol]0.2 10*3/uLNormal0.0-0.45 [facility] HospitalComment on above:Performed By: #### SCAN CBC, LDH, CMP #### [facility] [address] [place] [address] USAEosinophils/100 WBC Auto (Bld)Ordered By: Russell Gómez on 27-02-7437Fvxisdiaouy/100 WBC (Bld)Automated eosinophil %.[facility] HospitalEosinophils/100 leukocytes in Blood by Automated countOrdered By: Russell Gómez on 33-32-7009Xwjghmvpajg/100 WBC (Bld)1.1 %Normal.[facility] HospitalComment on above:Performed By: #### SCAN CBC, LDH, CMP #### [facility] [address] [place] [address] USAErythrocyte distribution width Auto (RBC) [Ratio]Ordered By: Russell Gómez on 69-33-0284Xzyxsmhqngw distribution width (RBC) [Ratio] Erythrocyte distribution width [Ratio] by Automated count12.0-14.8[facility] HospitalErythrocyte distribution width [Ratio] by Automated count Ordered By: Russell Gómez on 64-75-8450Udhduhufgks distribution width (RBC) [Ratio] 13.2 %Hvprhl51.0-14.8[facility] HospitalComment on above:Performed By: #### SCAN CBC, LDH, CMP #### [facility] [address] [place] [id number] USAErythrocytes [#/volume] in Blood by Automated countOrdered By: Russell Gómez on 54-24-2206BYL (Bld) [#/Vol]4.67 10*6/uLNormal3.90-5.60 [facility] HospitalComment on above:Performed By: #### SCAN CBC, LDH, CMP #### [facility] [address] [place] [id number] USAGlobulin Calc (S) [Mass/Vol]Ordered By: Russell Gómez on 79-05-1114Clybfedc (S) [Mass/Vol]Serum globulin measurement by calculation (mass/volume)[facility] HospitalGlucose [Mass/volume] in Serum or PlasmaOrdered By: Russell Gómez on 59-15-3895Xzytonq [Mass/Vol]Glucose [Mass/volume] in Serum or Exsmfz60-091EtwsdiwmjBucyrus Community HospitalComment on above:ADA recommended reference rangeRandom Glucose Reference Range is dependent on time and content of last meal. Glucose of more than 200 mg/dL in a nonstressed, ambulatory subject supports the diagnosisof Diabetes Mellitus. Glucose [Mass/Vol]91 mg/cXPqvwgm90-164DeziuuwwjBucyrus Community HospitalComment on above:ADA recommended reference rangeRandom Glucose [...] EMP PSA, A1C WTH eA, CMP #### [facility] [address] [place] [address] USAHematocrit Auto (Bld) [Volume fraction]Ordered By: Russell Gómez on 38-40-6523Zwbzwoxahn (Bld) [Volume fraction]Hematocrit [Volume Fraction] of Blood by Automated count38.8-50.0[facility] HospitalHematocrit [Volume Fraction] of Blood by Automated countOrdered By: Russell Gómez on 31-99-6951Guesocsafu (Bld) [Volume fraction]43.3 %Bfrwnk76.8-50.0[facility] HospitalComment on above:Performed By: #### SCAN CBC, LDH, CMP #### [facility] [address] [place] [address] USAHemoglobin A1c/Hemoglobin.total in BloodOrdered By: Russell Gómez on 61-38-0275QkH7x (Bld) [Mass fraction]Hemoglobin A1c percentage4.3-5.6 [facility] HospitalComment on above:Increased risk for diabetes: 5.7 - 6.4diabetes: >6.4glycemic control for adults with diabetes: <7.0HbA1c (Bld) [Mass fraction]4.9 %Normal4.3-5.6FFostoria City HospitalComment on above:Increased risk for diabetes: 5.7 - 6.4diabetes: >6.4glycemic control for adults with diabetes: <7.0Result Comment: Increased risk for diabetes: 5.7 - 6.4 diabetes: >6.4 glycemic control for adults with diabetes: <7.0Performed By: #### SCAN CBC, LDH, CMP #### [facility] [address] [place] [address] USAHemoglobin [Mass/volume] in BloodOrdered By: Russell Gómez on 82-21-5311Sppktbyjyo (Bld) [Mass/Vol]Hemoglobin [Mass/volume] in Blood13.0-17.0 [facility] HospitalHemoglobin (Bld) [Mass/Vol]14.9 g/dLNormal 13.0-17.0[facility] HospitalComment on above:Performed By: #### SCAN CBC, LDH, CMP #### [facility] [address] [place] [address] USALeukocytes [#/volume] corrected for nucleated erythrocytes in Blood by Automated counOrdered By: Russell Gómez on 19-24-9816QPW corrected for nucl RBC Auto (Bld) [#/Vol]Leukocytes [#/volume] corrected for nucleated erythrocytes in Blood by Automated counHigh4.1-10.5FFostoria City HospitalWBC corrected for nucl RBC Auto (Bld) [#/Vol]19.5 10*3/uLHigh4.1-10.5 [facility] HospitalLeukocytes [#/volume] in Blood by Automated countOrdered By: Russell Gómez on 65-90-3639BTH (Bld) [#/Vol]19.5 10*3/uLHigh 4.1-10.5FFostoria City HospitalComment on above:Performed By: #### SCAN CBC, LDH, CMP #### [facility] [address] [place] [address] USALipid Panelon 36-00-1907UKL Cholesterol,Gbtjvbbwqr00 mg/dL Normal0-100[facility] Physician GroupComment on above:Result Comment: LDL ATP III CLASSIFICATION LDL less than 100 mg/dL Optimal LDL 100-129 mg/dL Near or above optimal LDL 130-159 mg/dL Borderline high LDL 160-189 mg/dL High LDL greater than 189 mg/dL Very highPerformed By: #### SCAN CBC, LDH, CMP #### [facility] [address] [place] [address] USATriglyceride w/Kbujaa21 mg/dLNormal0-149[facility] Physician GroupComment on above:Result Comment: TRIG ATP III CLASSIFICATION TRIG less than 150 mg/dL Normal TRIG 150-199 mg/dL Borderline high TRIG 200-500 mg/dL High TRIG greater than 500 mg/dL Very high Standard traceable to the Center for Disease Conrtrol and Prevention (CDC) test method.Performed By: #### SCAN CBC, LDH, CMP #### [facility] [address] [place] [address] USAVLDL BOGXICZPWFK16 mg/dLNoNovant Health/NHRMC Physician GroupComment on above:Performed By: #### SCAN CBC, LDH, CMP #### [facility] [address] [place] [address] USALymphocytes Auto (Bld) [#/Vol]Ordered By: Russell Gómze on 32-30-9298Dygmexvuppj (Bld) [#/Vol]Lymphocytes [#/volume] in Blood by Automated countHigh1.00-4.8[facility] HospitalLymphocytes [#/volume] in Blood by Automated countOrdered By: Russell Gómez on 05-68-6062Nnmvssfokrl (Bld) [#/Vol]14.4 10*3/uLHigh1.00-4.[address] [place], [place] [address]Comment on above:Performed By: #### SCAN CBC, LDH, CMP #### [facility] [address] [place] [address] USALymphocytes/100 WBC Auto (Bld)Ordered By: Russell Gómez on 28-15-6336Colgzajdltv/100 WBC (Bld)Lymphocytes/100 leukocytes in Blood by Automated count.[facility] HospitalLymphocytes/100 leukocytes in Blood by Automated countOrdered By: Russell Gómez on 62-80-5271Ylyncayzdne/100 WBC (Bld)74.0 %Normal.[facility] HospitalComment on above:Performed By: #### SCAN CBC, LDH, CMP #### [facility] [address] [place] [id number] [facility] Auto (RBC) [Entitic mass]Ordered By: Russell Gómez on 94-90-4523HBF (RBC) [Entitic mass]MCH [Entitic mass] by Automated count27.5-35.2 [facility] [Entitic mass] by Automated countOrdered By: Russell Gómez on 64-11-2001VGR (RBC) [Entitic mass]31.8 jkLdhehh08.5-35.2 [facility] HospitalComment on above:Performed By: #### SCAN CBC, LDH, CMP #### [facility] [address] [place] [address] USAHC Auto (RBC) [Mass/Vol]Ordered By: Russell Gómez on 14-37-0151SPRC (RBC) [Mass/Vol]MCHC [Mass/volume] by Automated count32.5-35.6 [facility] HospitalHC (RBC) [Mass/Vol]34.3 g/dL32.5-35.6 [facility] HospitalMCV Auto (RBC) [Entitic vol]Ordered By: Russell Gómez on 55-98-2594KTZ (RBC) [Entitic vol]MCV [Entitic volume] by Automated count 83.5-101[facility] HospitalV [Entitic volume] by Automated count Ordered By: Russell Gómez on 78-44-0976IDO (RBC) [Entitic vol]92.8 rEGhnuqj76.5-101 [facility] HospitalComment on above:Performed By: #### SCAN CBC, LDH, CMP #### [facility] [address] [place] [address] USAMonocytes Auto (Bld) [#/Vol]Ordered By: Russell Gómez on 11-79-1326Dsikkfuzh (Bld) [#/Vol]Automated blood monocyte count0.0-0.8[facility] HospitalMonocytes [#/volume] in Blood by Automated countOrdered By: Russell Gómez on 18-08-4780Hmstqajgj (Bld) [#/Vol]0.4 10*3/uLNormal0.0-0.8 [facility] HospitalComment on above:Performed By: #### SCAN CBC, LDH, CMP #### [facility] [address] [place] [address] USAMonocytes/100 WBC Auto (Bld)Ordered By: Russell Gómez on 08-37-6516Atvbwjbhg/100 WBC (Bld)Automated monocyte %.[facility] HospitalMonocytes/100 leukocytes in Blood by Automated countOrdered By: Russell Gómez on 86-30-8977Lkekxfyga/100 WBC (Bld)2.3 %Normal.[facility] HospitalComment on above:Performed By: #### SCAN CBC, LDH, CMP #### [facility] [address] [place] [id number] USANeutrophils Auto (Bld) [#/Vol]Ordered By: Russell Gómez on 04-77-3220Hqsdphucplk (Bld) [#/Vol]Neutrophils [#/volume] in Blood by Automated count1.8-7.7FFostoria City HospitalNeutrophils [#/volume] in Blood by Automated countOrdered By: Russell Gómez on 17-60-6316Txulsehhlan (Bld) [#/Vol]4.4 10*3/uLNormal1.8-7.7FFostoria City HospitalComment on above:Performed By: #### SCAN CBC, LDH, CMP #### [facility] [address] [place] [address] USANeutrophils/100 WBC Auto (Bld)Ordered By: Russell Gómez on 08-09-8231Xotyyczkzib/100 WBC (Bld)Automated neutrophil %.[facility] HospitalNeutrophils/100 leukocytes in Blood by Automated countOrdered By: Russell Gómez on 03-29-1543Zvmxucngafw/100 WBC (Bld)22.4 %Normal.[facility] HospitalComment on above:Performed By: #### SCAN CBC, LDH, CMP #### [facility] [address] [place], [place] [id number] USANo Panel InformationOrdered By: Russell Gómez on 11-30-2024 Estimated GFR (CKD-EPI)> 60.0 mL/MinBucyrus Community HospitalPharmacy Creatinine Clearance (ChemN/[facility]. Anthony's HospitalNucleated erythrocytes [Presence] in Blood by Automated countOrdered By: Russell Gómez on 53-64-8623Atfpfxufp RBC Auto Ql (Bld)Nucleated erythrocytes [Presence] in Blood by Automated count0-0.5FFostoria City HospitalNucleated RBC Auto Ql (Bld)0.2 /100{WBC}0-0.5FFostoria City HospitalPlatelet mean volume Auto (Bld) [Entitic vol]Ordered By: Russell Gómez on 21-83-6746Zjqypsbr mean volume (Bld) [Entitic vol]Platelet mean volume [Entitic volume] in Blood by Automated count6.6-10.1FFostoria City HospitalPlatelet mean volume [Entitic volume] in Blood by Automated countOrdered By: Russell Gómez on 15-57-6183Nheelzxc mean volume (Bld) [Entitic vol]8.6 fLNormal6.6-10.1FFostoria City HospitalComment on above:Performed By: #### SCAN CBC, LDH, CMP #### [facility] [address] [place] [address] USAPlatelets Auto (Bld) [#/Vol]Ordered By: Russell Gómez on 25-20-8522Wkahmtiop (Bld) [#/Vol]Platelets [#/volume] in Blood by Automated ushkwTgf070-815XwsrqlzfsBucyrus Community HospitalPlatelets [#/volume] in Blood by Automated countOrdered By: Russell Gómez on 95-02-3592Fassargnz (Bld) [#/Vol]121 10*3/pBKvt117-634Rezss[address] [place], [place] [address]Comment on above:Performed By: #### SCAN CBC, LDH, CMP #### [facility] [address] [place] [phone] USAPotassium [Moles/volume] in Serum or PlasmaOrdered By: Russell Gómez on 41-96-3791Rkxdtkbmj [Moles/Vol]Potassium [Moles/volume] in Serum or Plasma3.5-5.1FFostoria City HospitalPotassium [Moles/Vol]3.8 mmol/L Normal3.5-5.1FFostoria City HospitalComment on above:Performed By: #### LIPID, CHC CBC, EMP PSA, A1C WTH eA, CMP #### [facility] [address] [place] [phone] USAProstate specific Ag [Mass/volume] in Serum or Plasma Ordered By: Russell Gómez on 63-40-6105Ibtkodax specific Ag [Mass/Vol]Prostate specific Ag [Mass/volume] in Serum or Plasma0.000-4.000[facility] HospitalComment on above:Serial tumor marker results determined by assays using different manufacturers or methods may not be comparable.[facility] Laboratory shoe lay out planner and method:[employer] DXI, CHEMILUMINESCENT IMMUNO ASSAY.Prostate specific Ag [Mass/Vol]0.650 ng/mL0.000-4.000[facility] HospitalComment on above:Serial tumor marker results determined by assays using different manufacturers or methods may not be comparable.[facility] Laboratory shoe lay out planner and method:[employer]EL DXI, CHEMILUMINESCENT IMMUNO ASSAY.Protein [Mass/volume] in Serum or PlasmaOrdered By: Russell Gómez on 47-45-5470Qntotwn [Mass/Vol]Protein [Mass/volume] in Serum or PlasmaLow6.4-8.9 [facility] HospitalProtein [Mass/Vol]6.3 g/dLLow6.4-8.9[facility] HospitalComment on above:Performed By: #### LIPID, CHC CBC, EMP PSA, A1C WT eA, CMP #### [facility] [address] [place] [phone] USARBC Auto (Bld) [#/Vol]Ordered By: Russell Gómez on 11-30-2024 RBC (Bld) [#/Vol]Erythrocytes [#/volume] in Blood by Automated count3.90-5.60 [facility] Medical Centererum globulin measurement by calculation (mass/volume)Ordered By: Russell Gómez on 07-01-0975Rlfcsjwv (S) [Mass/Vol]2.0 g/dL [facility] HospitalComment on above:Performed By: #### LIPID, CHC CBC, EMP PSA, A1C WTH eA, CMP #### [facility] [address] [place] [phone] USASerum or plasma albumin/globulin mass ratioOrdered By: Russell Gómez on 78-18-2773Bpiowyg/Globulin [Mass ratio]Serum or plasma albumin/globulin mass ratioBucyrus Community HospitalAlbumin/Globulin [Mass ratio]2.2 {ratio}[facility] County HospitalComment on above: Performed By: #### LIPID, CHC CBC, EMP PSA, A1C WT eA, CMP #### [facility] [address] [place] [address] USASerum or plasma anion gap determinationOrdered By: Russell Gómez on 73-26-0352Pxjur gap [Moles/Vol]Serum or plasma anion gap determination 6.0-15.0[facility] HospitalAnion gap [Moles/Vol]7.7 mmol/LNormal 6.0-15.0[facility] HospitalComment on above:Performed By: #### LIPID, CHC CBC, EMP PSA, A1C WTH eA, CMP #### [facility] [address] [place] [address] USASerum or plasma total cholesterol/high density lipoprotein (HDL) cholesterol mass ratOrdered By: Russell Gómez on 11-30-2024 Cholesterol.total/Cholesterol in HDL [Mass ratio]Serum or plasma total cholesterol/high density lipoprotein (HDL) cholesterol mass rat<5.0[facility] HospitalCholesterol.total/Cholesterol in HDL [Mass ratio]2.9 {ratio}Normal<5.0[facility] HospitalComment on above:Result Comment: PERFORMED BY: [place] [address] PATHOLOGIST INDUSTRIAL RELATIONS SPECIALIST SUSAN FREGOSO M.D.Performed By: #### SCAN CBC, LDH, CMP #### [facility] [address] [place] [address] USASodium [Moles/volume] in Serum or PlasmaOrdered By: Russell Gómez on 98-67-3677Ltezvf [Moles/Vol]Sodium [Moles/volume] in Serum or Plasma 136-145[facility]aut Medical Centerodium [Moles/Vol]142 mmol/LNormal 136-145[facility] HospitalComment on above:Performed By: #### LIPID, CHC CBC, EMP PSA, A1C WTH eA, CMP #### [facility] [address] [place] [id number] USATriglyceride [Mass/volume] in Serum or PlasmaOrdered By: Russell Gómez on 22-30-3820Vqriuuugiwny [Mass/Vol]Triglyceride [Mass/volume] in Serum or Plasma0-149[facility] HospitalComment on above:TRIG ATP III CLASSIFICATIONTRIG less than 150 mg/dL NormalTRIG 150-199 mg/dL Borderline highTRIG 200-500 mg/dL High TRIG greater than 500 mg/dL Very highStandard traceable to the Center for Disease Conrtrol and Prevention (CDC) test method. Triglyceride [Mass/Vol]86 mg/dL0-149[facility] HospitalComment on above:TRIG ATP III CLASSIFICATIONTRIG less than 150 mg/dL NormalTRIG 150-199 mg/dL Borderline highTRIG 200-500 mg/dL High TRIG greater than 500 mg/dL Very highStandard traceable to the Center for Disease Conrtrol and Prevention (CDC) test method.Urea nitrogen [Mass/volume] in Serum or PlasmaOrdered By: Russell Gómez on 05-73-0394Jvmb nitrogen [Mass/Vol]Urea nitrogen [Mass/volume] in Serum or Plasma03-18[facility] HospitalUrea nitrogen [Mass/Vol]15 mg/dL Normal-[facility] HospitalComment on above:Performed By: #### LIPID, CHC CBC, EMP PSA, A1C WTH eA, CMP #### [facility] [address] [place] [address] USAWBC Auto (Bld) [#/Vol]Ordered By: Russell Gómez on 11-30-2024 WBC (Bld) [#/Vol]Leukocytes [#/volume] in Blood by Automated countHigh4.1-10.5 [facility] HospitalAlanine aminotransferase [Enzymatic activity/volume] in Serum or PlasmaOrdered By: Irene Solares on 00-38-5579EYO [Catalytic activity/Vol]Alanine aminotransferase [Enzymatic activity/volume] in Serum or PlasmaBucyrus Community HospitalAlbumin [Mass/volume] in Serum or Plasma by Bromocresol green (BCG) dye binding methoOrdered By: Irene Solares on 72-26-8926Grhrhsq BCG dye [Mass/Vol]Albumin [Mass/volume] in Serum or Plasma by Bromocresol green (BCG) dye binding metho3.5-5.7FFostoria City HospitalAlkaline phosphatase [Enzymatic activity/volume] in Serum or PlasmaOrdered By: Irene Solares on 02-45-3675UFJ [Catalytic activity/Vol] Alkaline phosphatase [Enzymatic activity/volume] in Serum or Jxdewg82-329 [facility] HospitalAspartate aminotransferase [Enzymatic activity/volume] in Serum or PlasmaOrdered By: Irene Solares on 98-52-8807GRG [Catalytic activity/Vol]Aspartate aminotransferase [Enzymatic activity/volume] in Serum or Mcvpnd72-26MjtvjuoijBucyrus Community HospitalBasophils Auto (Bld) [#/Vol]Ordered By: Irene Solares on 08-21-6439Idosvzxjr (Bld) [#/Vol]Automated basophil count0.0-0.2FFostoria City HospitalBasophils/100 WBC Auto (Bld)Ordered By: Irene Solares on 40-37-8369Rafoxrace/100 WBC (Bld)Automated basophil %.[facility] HospitalBilirubin.total [Mass/volume] in Serum or PlasmaOrdered By: Irene Solares on 91-81-8645Vtkitrxhy [Mass/Vol] Bilirubin.total [Mass/volume] in Serum or PlasmaHigh0.3-1.0[facility] HospitalCalcium [Mass/volume] in Serum or PlasmaOrdered By: Irene Solares on 48-56-0480Pjywbfq [Mass/Vol]Calcium [Mass/volume] in Serum or Plasma8.6-10.3 [facility] HospitalCarbon dioxide, total [Moles/volume] in Serum or PlasmaOrdered By: Irene Solares on 56-54-8877NG8 [Moles/Vol]Carbon dioxide, total [Moles/volume] in Serum or YgldarFxah11.0-31.0[facility] HospitalChloride [Moles/volume] in Serum or PlasmaOrdered By: Irene Solares on 44-86-1832Bbdhmpwj [Moles/Vol]Chloride [Moles/volume] in Serum or Hlygrg17-314 [facility] HospitalComprehensive Metabolic Panelon 11-12-2024 Albumin [Mass/Vol]4.4 g/dLNormal3.5-5.7The [facility] Physician GroupComment on above:Performed By: #### SCAN CBC, LDH, CMP #### [place] [address] USAAlbumin/Globulin [Mass ratio]2.3 {ratio}NormalThe [facility]loop [facility] Hospital Physician GroupComment on above:Performed By: #### SCAN CBC, LDH, CMP #### [facility] [address] [place] [address] USAALP [Catalytic activity/Vol]89 U/XCjuwtl84-960Pkk [facility] Physician GroupComment on above:Performed By: #### SCAN CBC, LDH, CMP #### [facility] [address] [place] [address] USAALT [Catalytic activity/Vol]28 U/LNormal7-52The [facility] Physician GroupComment on above:Performed By: #### SCAN CBC, LDH, CMP #### [facility] [address] [place] [address] USAAnion gap [Moles/Vol]8.2 mmol/LNormal6.0-15.0The [facility] Physician GroupComment on above:Performed By: #### SCAN CBC, LDH, CMP #### [facility] [address] [place] [address] USAAST [Catalytic activity/Vol]27 U/EAdqmxp93-64Keu [facility] Physician GroupComment on above:Performed By: #### SCAN CBC, LDH, CMP #### [facility] [address] [place] [address] USABilirubin [Mass/Vol]1.1 mg/dLHigh0.3-1.0The [facility] Physician GroupComment on above:Performed By: #### SCAN CBC, LDH, CMP #### [facility] [address] [place] [address] USACalcium [Mass/Vol]8.8 mg/dLNormal8.6-10.3The [facility] Physician GroupComment on above:Performed By: #### SCAN CBC, LDH, CMP #### [facility] [address] [place] [address] USAChloride [Moles/Vol]106 mmol/LRdpcyb78-191Dhf [facility] Physician GroupComment on above:Performed By: #### SCAN CBC, LDH, CMP #### [facility] [address] [place] [address] USACO2 [Moles/Vol]31.9 mmol/LHigh21.0-31.0The [facility] Physician GroupComment on above:Performed By: #### SCAN CBC, LDH, CMP #### [facility] [address] [place] [address] USACreatinine [Mass/Vol]0.83 mg/dLNormal0.70-1.30The [facility] Physician GroupComment on above:Performed By: #### SCAN CBC, LDH, CMP #### [facility] [address] [place] [address] USACreatinine Clr Calc Kxdxbdrf92.39NormHCA Florida Northside Hospital Physician GroupComment on above:Performed By: #### SCAN CBC, LDH, CMP #### [facility] [address] [place] [address] USAGFR/1.73 sq M.predicted MDRD (S/P/Bld) [Vol rate/Area] mL/min/{1.73_m2}NormalThe [facility] Hospital Physician GroupComment on above:Performed By: #### SCAN CBC, LDH, CMP #### [facility] [address] [place] [address] USAGlobulin (S) [Mass/Vol]1.9 g/dLNoChildren's Hospital for Rehabilitatione [facility] Physician GroupComment on above:Performed By: #### SCAN CBC, LDH, CMP #### [facility] [address] [place] [address] USAGlucose [Mass/Vol]93 mg/fAUknrlo44-023Afs [facility] Physician GroupComment on above:Result Comment: Random Glucose Reference Range is dependent on time and content of last meal. Glucose of more than 200 mg/dL in a nonstressed, ambulatory subject supports the diagnosis of Diabetes Mellitus. ADA recommended reference rangePerformed By: #### SCAN CBC, LDH, CMP #### [facility] [address] [place] [address] USAPotassium [Moles/Vol]4.1 mmol/LNormal3.5-5.1The [facility] Physician GroupComment on above:Performed By: #### SCAN CBC, LDH, CMP #### [facility] [address] [place] [address] USAProtein [Mass/Vol]6.3 g/dLLow6.4-8.9The [facility] Physician GroupComment on above:Performed By: #### SCAN CBC, LDH, CMP #### [facility] [address] [place] [address] USASodium [Moles/Vol]142 mmol/DWzscmn452-085Sgi [facility] Physician [facility] HospitalComment on above:Performed By: #### SCAN CBC, LDH, CMP #### [facility] [address] [place] [address] USAUrea nitrogen [Mass/Vol]17 mg/dLNormal7-e [facility] Physician GroupComment on above:Performed By: #### SCAN CBC, LDH, CMP #### [facility] [address] [place] [address] USACreatinine [Mass/volume] in Serum or PlasmaOrdered By: Irene Solares on 61-66-1281Oddggyaoeu [Mass/Vol]Creatinine [Mass/volume] in Serum or Plasma0.70-1.30[facility] HospitalEosinophils Auto (Bld) [#/Vol]Ordered By: Irene Solares on 48-70-5128Cjpvhtpwzxi (Bld) [#/Vol]Automated eosinophil count0.0-0.45[facility] HospitalEosinophils/100 WBC Auto (Bld)Ordered By: Irene Solares on 39-16-9245Dmyhpwotwtm/100 WBC (Bld) Automated eosinophil %.[facility] HospitalErythrocyte distribution width Auto (RBC) [Ratio]Ordered By: Irene Solares on 79-52-6748Hcqwyxlxwib distribution width (RBC) [Ratio]Erythrocyte distribution width [Ratio] by Automated count12.0-14.8[facility] HospitalErythrocyte morphology finding [Identifier] in BloodOrdered By: Irene Solares on 24-06-4037OHO morphology finding Nom (Bld)RBC morphologyNormalBucyrus Community HospitalGlobulin Calc (S) [Mass/Vol]Ordered By: Irene Solares on 11-12-2024 Globulin (S) [Mass/Vol]Serum globulin measurement by calculation (mass/volume) [facility] HospitalGlucose [Mass/volume] in Serum or PlasmaOrdered By: Irene Solares on 65-04-4759Zdrfmpb [Mass/Vol]Glucose [Mass/volume] in Serum or Lfpwzz65-492UfhxkmfzgBucyrus Community HospitalComment on above:ADA recommended reference rangeRandom Glucose Reference Range is dependent on time and content of last meal. Glucose of more than 200 mg/dL in a nonstressed, ambulatory subject supports the diagnosisof Diabetes Mellitus.Hematocrit Auto (Bld) [Volume fraction]Ordered By: Irene Solares on 24-69-9494Styomyvkog (Bld) [Volume fraction]Hematocrit [Volume Fraction] of Blood by Automated count 38.8-50.0[facility] HospitalHemoglobin [Mass/volume] in Blood Ordered By: Irene Solares on 51-03-4176Qmsouwjwow (Bld) [Mass/Vol]Hemoglobin [Mass/volume] in Blood13.0-17.0[facility] HospitalLDH Lactate Dehydrogenaseon 79-71-2056GEZ Lactate Dfnuexuzzesbk743 U/VBzynzj055-300Cmf [facility] Physician GroupComment on above:Result Comment: PERFORMED BY: [place] [address] PATHOLOGIST INDUSTRIAL RELATIONS SPECIALIST SUSAN FREGOSO M.D.Performed By: #### SCAN CBC, LDH, CMP #### [place] [address] USALactate dehydrogenase [Enzymatic activity/volume] in Serum or Plasma by Lactate to pyOrdered By: Irene Solares on 28-51-6212OHI Lactate to pyruvate reaction [Catalytic activity/Vol]Lactate dehydrogenase [Enzymatic activity/volume] in Serum or Plasma by Lactate to ng728-817CcnamblylBucyrus Community HospitalLeukocytes [#/volume] corrected for nucleated erythrocytes in Blood by Automated counOrdered By: Irene Solares on 30-55-8901TYU corrected for nucl RBC Auto (Bld) [#/Vol]Leukocytes [#/volume] corrected for nucleated erythrocytes in Blood by Automated counHigh4.1-10.5FFostoria City HospitalLymphocytes Auto (Bld) [#/Vol]Ordered By: Irene Soalres on 11-12-2024 Lymphocytes (Bld) [#/Vol]Lymphocytes [#/volume] in Blood by Automated countHigh 1.00-4.8[facility] HospitalLymphocytes/100 WBC Auto (Bld)Ordered By: Irene Solares on 40-25-4564Aythmtpcwox/100 WBC (Bld)Lymphocytes/100 leukocytes in Blood by Automated count.[facility] HospitalMCH Auto (RBC) [Entitic mass]Ordered By: Irene Solares on 27-73-1741QUD (RBC) [Entitic mass]MCH [Entitic mass] by Automated count27.5-35.2FFostoria City HospitalMCHC Auto (RBC) [Mass/Vol]Ordered By: Irene Solares on 55-75-0484KYQV (RBC) [Mass/Vol]MCHC [Mass/volume] by Automated count32.5-35.6FFostoria City HospitalMCV Auto (RBC) [Entitic vol]Ordered By: Irene Solares on 53-44-0494TAC (RBC) [Entitic vol]MCV [Entitic volume] by Automated count83.5-101 [facility] HospitalMonocytes Auto (Bld) [#/Vol]Ordered By: Irene Solares on 14-85-3867Faukufqqn (Bld) [#/Vol]Automated blood monocyte count 0.0-0.8[facility] HospitalMonocytes/100 WBC Auto (Bld)Ordered By: Irene Solares on 15-79-0807Tpdvqbcvl/100 WBC (Bld)Automated monocyte %.[facility] HospitalNeutrophils Auto (Bld) [#/Vol]Ordered By: Irene Solares on 09-24-6608Unqtpbrxchv (Bld) [#/Vol]Neutrophils [#/volume] in Blood by Automated count1.8-7.7FFostoria City HospitalNeutrophils/100 WBC Auto (Bld)Ordered By: Irene Solares on 02-63-0547Vcbfyjvczce/100 WBC (Bld)Automated neutrophil %.[facility] HospitalNo Panel InformationOrdered By: Irene Solares on 16-04-8801Ynuvuufcc GFR (CKD-EPI)> 60.0 mL/MinBucyrus Community HospitalPharmacy Creatinine Clearance (Chem97.39[facility] HospitalNucleated erythrocytes [Presence] in Blood by Automated countOrdered By: Irene Solares on 32-63-6142Ygvypdwet RBC Auto Ql (Bld)Nucleated erythrocytes [Presence] in Blood by Automated count0-0.5FFostoria City HospitalPlatelet adequacy [Presence] in Blood by Light microscopyOrdered By: Irene Solares on 86-91-7509Huzoxypwy LM Ql (Bld)Platelet adequacy [Presence] in Blood by Light microscopyNormLakeHealth TriPoint Medical CenterPlatelet mean volume Auto (Bld) [Entitic vol]Ordered By: Irene Solares on 11-12-2024 Platelet mean volume (Bld) [Entitic vol]Platelet mean volume [Entitic volume] in Blood by Automated count6.6-10.1FFostoria City HospitalPlatelet morphology finding [Identifier] in BloodOrdered By: Irene Solares on 11-12-2024 Platelet morphology finding Nom (Bld)Platelet morphology finding [Identifier] in BloodNoWilson Street HospitalPlatelets Auto (Bld) [#/Vol]Ordered By: Irene Solares on 55-81-6061Sayxwfyoq (Bld) [#/Vol]Platelets [#/volume] in Blood by Automated muryhZzz172-121OlkebiymoBucyrus Community HospitalPotassium [Moles/volume] in Serum or PlasmaOrdered By: Irene Solares on 11-12-2024 Potassium [Moles/Vol]Potassium [Moles/volume] in Serum or Plasma3.5-5.1FFostoria City HospitalProtein [Mass/volume] in Serum or PlasmaOrdered By: Irene Solares on 39-96-2075Cmjusct [Mass/Vol]Protein [Mass/volume] in Serum or PlasmaLow6.4-8.9[facility] HospitalRBC Auto (Bld) [#/Vol]Ordered By: Irene Solares on 00-60-2880ZQT (Bld) [#/Vol]Erythrocytes [#/volume] in Blood by Automated count3.90-5.60[facility] Medical Centercan and CBCon 79-84-9000Qpedogtwm (Bld) [#/Vol]0.1 10*3/uLNormal0.0-0.2The [facility] Physician GroupComment on above:Performed By: #### SCAN CBC, LDH, CMP #### [place] [address] USABasophils/100 WBC (Bld)0.4 %Normal.The [facility] Physician GroupComment on above:Performed By: #### SCAN CBC, LDH, CMP #### [place] [address] USAEosinophils (Bld) [#/Vol]0.2 10*3/uLNormal0.0-0.45The [facility] Hospital Physician GroupComment on above:Performed By: #### SCAN CBC, LDH, CMP #### [place] [address] USAEosinophils/100 WBC (Bld)1.0 %Normal.The [facility] Physician GroupComment on above:Performed By: #### SCAN CBC, LDH, CMP #### [place] [address] USAErythrocyte distribution width (RBC) [Ratio]12.9 %Normal 12.0-14.8The [facility] Hospital Physician GroupComment on above:Performed By: #### SCAN CBC, LDH, CMP #### [place] [address] USAHematocrit (Bld) [Volume fraction]41.8 %Vuzhmb50.8-50.0The [facility] Physician GroupComment on above:Performed By: #### SCAN CBC, LDH, CMP #### [place] [address] USAHemoglobin (Bld) [Mass/Vol]14.7 g/eYIfpgkh18.0-17.0The [facility] Physician GroupComment on above:Performed By: #### SCAN CBC, LDH, CMP #### [place] [address] USALymphocytes (Bld) [#/Vol]13.2 10*3/uLHigh1.00-4.8The [facility] Physician GroupComment on above:Performed By: #### SCAN CBC, LDH, CMP #### [place] [address] USALymphocytes/100 WBC (Bld)75.9 %Normal.The [facility] Physician GroupComment on above:Performed By: #### SCAN CBC, LDH, CMP #### [address]H (RBC) [Entitic mass]32.2 joPghpxb91.5-35.2The [facility] Physician GroupComment on above:Performed By: #### SCAN CBC, LDH, CMP #### [place] [address] USAV (RBC) [Entitic vol]91.7 cPWxazby00.5-101The [facility] Hospital Physician GroupComment on above:Performed By: #### SCAN CBC, LDH, CMP #### [place] [address] USAMean Corpuscular HGB Conc35.1 g/uFOpqyop03.5-35.6The [facility] Physician GroupComment on above:Performed By: #### SCAN CBC, LDH, CMP #### [place] [address] USAMonocytes (Bld) [#/Vol]0.4 10*3/uLNormal0.0-0.8The [facility] Physician GroupComment on above:Performed By: #### SCAN CBC, LDH, CMP #### [place] [address] USAMonocytes/100 WBC (Bld)2.1 %Normal.The [facility] Physician GroupComment on above:Performed By: #### SCAN CBC, LDH, CMP #### [place] [address] USANeutrophils (Bld) [#/Vol]3.6 10*3/uLNormal1.8-7.7The [facility] Physician GroupComment on above:Performed By: #### SCAN CBC, LDH, CMP #### [place] [address] USANeutrophils/100 WBC (Bld)20.6 %Normal.The [facility] Physician GroupComment on above:Performed By: #### SCAN CBC, LDH, CMP #### [place] [address] USANRBC%0.2 /100{WBC}Normal0-0.5The [facility]ician Group Comment on above:Performed By: #### SCAN CBC, LDH, CMP #### [place] [address] USAPlatelet EstimateDecreasedNormalNoNovant Health/NHRMC Physician GroupComment on above:Performed By: #### SCAN CBC, LDH, CMP #### [place] [address] USAPlatelet mean volume (Bld) [Entitic vol]7.9 fLNormal 6.6-10.1The [facility] Physician GroupComment on above:Performed By: #### SCAN CBC, LDH, CMP #### [place] [address] USAPlatelet MorphologyNormalNormalPhysicians Regional Medical Center [facility] Pine Ridge Physician GroupComment on above:Result Comment: PERFORMED BY: [place] [address] PATHOLOGIST INDUSTRIAL RELATIONS SPECIALIST SSUAN FREGOSO M.D.Performed By: #### SCAN CBC, LDH, CMP #### [place] [address] USAPlatelets (Bld) [#/Vol]136 10*3/zPPgv917-054Fyy [facility] Physician GroupComment on above:Performed By: #### SCAN CBC, LDH, CMP #### [place] [address] USARBC (Bld) [#/Vol]4.56 10*6/uLNormal3.90-5.60The [facility] Physician GroupComment on above:Performed By: #### SCAN CBC, LDH, CMP #### [place] [address] USARBC morphology finding Nom (Bld)NormalNormalNormHCA Florida Northside Hospital Physician GroupComment on above:Performed By: #### SCAN CBC, LDH, CMP #### [facility] [address] [place] [address] USAWBC (Bld) [#/Vol]17.4 10*3/uLHigh4.1-10.5The [facility] Physician GroupComment on above:Performed By: #### SCAN CBC, LDH, CMP #### [facility] [address] [place] [id number] USASerum or plasma albumin/globulin mass ratioOrdered By: Irene Solares on 06-04-1829Nklsymw/Globulin [Mass ratio]Serum or plasma albumin/globulin mass ratioUniversity Hospitals Conneaut Medical Centererum or plasma anion gap determinationOrdered By: Irene Solares on 75-00-5660Jreqr gap [Moles/Vol]Serum or plasma anion gap determination6.0-15.0[facility] Medical Centerodium [Moles/volume] in Serum or PlasmaOrdered By: Irene Solares on 90-99-3225Mtored [Moles/Vol]Sodium [Moles/volume] in Serum or Djggrs721-472 [facility] HospitalUrea nitrogen [Mass/volume] in Serum or Plasma Ordered By: Irene Solares on 88-15-8920Wqdu nitrogen [Mass/Vol]Urea nitrogen [Mass/volume] in Serum or Plasma7-25[facility] HospitalWBC Auto (Bld) [#/Vol]Ordered By: Irene Solares on 25-28-9117FEG (Bld) [#/Vol]Leukocytes [#/volume] in Blood by Automated countHigh4.1-10.5FFostoria City HospitalXR Hand - left 3 Viewson 05-64-3738Kccebbb Result: Three views of the left hand(s), PA/lateral/oblique, taken today and saved to the permanent medical record. Fracture distal phalanx middle finger well healed with advanced DIP joint arthritis.[facility]XR Knee - right 3 Viewson 38-10-9969Hnjqppt Result: Three views, bilateral PA weight-bearing, sunrise, lateral of the right knee(s) taken today and saved to the permanent medical record are reviewed. Mild medial compartment joint space narrowing. No acute osseous abnormalities.[facility] Panel Informationon 09-30-2024 Aracely De León, ARRT 10/02/2024 9:51 PM L Inj/Asp: R knee on 09/30/2024 4:29 PM Indications: pain Details: 25 G needle, lateral approach Medications: 1.5 mg betamethasone acetate-betamethasone sodium phosphate 6 (3-3) MG/ML Consent was given by the patient. [facility] HealthcareXR Hand - left 3 Viewson 60-27-3282Gnnmgfzdo Study observation (narrative)[facility]XR [facility] - [facility] 3 Viewson 09-30-2024 Radiology Study observation (narrative)[facility] InstituteCNOVon 67-75-1305SLDF Office Visit (CARDAV) DARIUS VALERA ([id number]) 1960 M Date Time Provider Department 09/21/24 4:30 PM TONY ARMSTRONG During your visit today, we recorded the following information about you: Blood pressure Weight Height 142/82 93 kg 1.829 m Tony Armstrong PA-C 09/21/2024 5:03 PM Signed [facility] [place] Sissy Zepeda Department of Cardiovascular Medicine SECTION [...] months CONTACT INFORMATION: Tony Armstrong PA-C Cardiology [address] [facility] [address] Dept: [phone] Dept Tony Armstrong PA-C 09/21/2024 4:57 PM Signed Please schedule appt with Dr. Tuttle in 6 months Referring Provider: ITA TUTTLE [[id number]] Allergies As of Date: 09/21/2024 (No Known Allergies) Date Reviewed: 09/21/2024 Reviewed by: Donte Iraheta II, RN - Fully Assessed Reason for Visit: Follow Up [171] Primary V (more content not included)...NormalKettering Health DaytonMR HAND LEFT WO IV CONTRASTon 88-02-8926WS HAND LEFT WO IV CONTRASTEXAM/TECHNIQUEMR HAND LEFT [...] MRI QuestionsCBC W Auto Differential panel (Bld)on 56-27-9561Sybyrctwx (Bld) [#/Vol]0.1 10*3/uLNOMS HealthcareBasophils/100 WBC (Bld)0 %Not Estab.[facility]OMS HealthcareEosinophils (Bld) [#/Vol]0.2 10*3/uLNOMS HealthcareEosinophils/100 WBC (Bld)1 %Not Estab.[facility] HealthcareErythrocyte distribution width (RBC) [Ratio]12.7 %11.6 - 15.4 %NOM HealthcareHematocrit (Bld) [Volume fraction]44.5 %37.5 - 51.0 %[facility] HealthcareHemoglobin (Bld) [Mass/Vol]15.1 g/dL13.0 - 17.7 g/dLFreeman Heart InstituteImmature granulocytes (Bld) [#/Vol]0 10*3/uLNOMS HealthcareImmature granulocytes/100 WBC (Bld)0 %Not Estab. [facility]OMS HealthcareLymphocytes (Bld) [#/Vol]12.7 10*3/uLHighNOMS Healthcare Lymphocytes/100 WBC (Bld)70 %Not Estab.[facility] InstituteMCH (RBC) [Entitic mass] 31.1 pg26.6 - 33.0 pgNORanken Jordan Pediatric Specialty HospitalMCHC (RBC) [Mass/Vol]33.9 g/dL31.5 - 35.7 g/dLChildren's Mercy HospitalV (RBC) [Entitic vol]92 fL79 - 97 fLNONV Healthcare Monocytes (Bld) [#/Vol]0.6 10*3/uLNOMS HealthcareMonocytes/100 WBC (Bld)4 %Not Estab.[facility]OMS HealthcareNeutrophils (Bld) [#/Vol]4.6 10*3/uLNOMS Healthcare Neutrophils/100 WBC (Bld)25 %Not Estab.[facility]S HealthcarePlatelets (Bld) [#/Vol]119 10*3/uLLowNOMS HealthcareRBC (Bld) [#/Vol]4.85 10*6/uLNOMS HealthcareWBC (Bld) [#/Vol]18.2 10*3/uLHighNOMS HealthcareComprehensive metabolic panelon 07-29-2024 Albumin [Mass/Vol]4.5 g/dL3.9 - 4.9 g/dLNOMS HealthcareALP [Catalytic activity/Vol]102 U/LNOMS HealthcareALT [Catalytic activity/Vol]33 U/LNOMS HealthcareAST [Catalytic activity/Vol]33 U/LNOMS HealthcareBilirubin [Mass/Vol] 0.6 mg/dL0.0 - 1.2 mg/dLNOMS HealthcareCalcium [Mass/Vol]9.3 mg/dL8.6 - 10.2 mg/dLNOMS HealthcareChloride [Moles/Vol]101 mmol/L96 - 106 mmol/LNOMS Healthcare CO2 [Moles/Vol]27 mmol/L20 - 29 mmol/LNOMS HealthcareCreatinine [Mass/Vol]0.96 mg/dL0.76 - 1.27 mg/dLNOMS HealthcareGFR/1.73 sq M.predicted among non-blacks MDRD (S/P/Bld) [Vol rate/Area]88 mL/min/{1.73_m2}59 - PINF mL/min/1.73NOMS HealthcareGlobulin (S) [Mass/Vol]1.9 g/dL1.5 - 4.5 g/dLNOMS HealthcareGlucose [Mass/Vol]100 mg/fKLlrt06 - 99 mg/dLNOMS HealthcarePotassium [Moles/Vol]4 mmol/L 3.5 - 5.2 mmol/LNOMS HealthcareProtein [Mass/Vol]6.4 g/dL6.0 - 8.5 g/dLNOMS HealthcareSodium [Moles/Vol]139 mmol/L134 - 144 mmol/LNOMS HealthcareUrea nitrogen [Mass/Vol]20 mg/dL8 - 27 mg/dLNOMS HealthcareUrea nitrogen/Creatinine [Mass ratio]21 mg/mg10 - 24NONV HealthcareLactate dehydrogenaseon 71-34-1253EJI Lactate to pyruvate reaction [Catalytic activity/Vol]261HighFreeman Heart InstituteNo Panel Informationon 99-68-7874Oacpbsywseeozc and review of laboratory results AbnormalNONV HealthcarePerformed at: [address] [id number] Parking Control Officer: Chad Mccall PhD, Phone: [phone] Psychiatric [facility] Center Specimen Status Reporton 36-44-3487Dauwzwghoqz Disk diffusion (KB) [[facility]]Comment NOMS HealthcareComment on above:[place] Lock CMP14 Default [place] Lock CMP14 Default A hand-written panel/profile was received from your office. In accordance with the [facility] Ambiguous Test Code Policy dated February 2003, we have completed your order by using the closest currently or formerly recognized AMA panel. We have assigned Comprehensive Metabolic Panel (14), Test Code #456512 to this request. If this is not the testing you wished to receive on this specimen, please contact the [facility] Client Inquiry/Technical Services Department to clarify the test order. We appreciate your business. XR ORBITS 1 TO 3 VIEWSon 30-47-9369JS ORBITS 1 TO 3 VIEWSXR ORBITS 1 TO 3 VIEWS/MRI CLEARANCE Reason for exam: MRI screening Prior comparative studies: None Findings: Screening Orbits: No radiopaque foreign bodies are seen to overlie the orbits on either side. Metallic dental appliance is noted.NormalNot AvailableXR finger LT 3rd digiton 35-67-8590SV finger LT 3rd digitMAGRUDER [place] [address] XRay Report Signed Patient: Darius Valera MR#: [id number] 10 : 1960 Acct:[id number] Age/Sex: 63 / M ADM Date: 07/24/24 Loc: XDUCLY Room: Type: [facility] Attending Dr: Hannah Queen GAUGER CHIEF DELIVERY Copies to: Hannah Queen APRN Ordering Provider: [...] Donte Quevedo M.D.07/24/2024 11:26 AM Dictation Location: [place] [address] Transcribed By: [facility] 07/24/24 1126 Dictated By: Donte Quevedo II, MD 07/24/24 1124 Signed By: 07/24/[address] [place] [address] Physician GroupXR THORACIC SPINE 3Von 00-85-[place] [address] XRay Report Signed Patient: DARIUS VALERA MR#: [id number] : 1960 Acct:[id number] Age/Sex: 63 / M ADM Date: 06/28/24 Loc: RAD Attending Dr: LINDA JANSEN Ordering Physician: LINDA JANSEN Date of Service: 06/28/24 Procedure(s): XR thoracic spine 3V Accession Number(s): [id number] cc: LINDA JANSEN [place] [id number] Patient Name: DARIUS VALERA MRN: [id number] date: 1960 Sex: M Assigned Patient Location: RAD Current Patient Location: Accession/Order Number: [id number] Exam Date: 06/28/2024 17:55 Report Date: 06/29/2024 [...] Signed By: 06/29/24 1503 DD/ 1501 TD/TT: Senior Specialist:TBHRadiology, Radiologist, - 06/29/2024 [place] [address] XRay Report Signed Patient: DARIUS VALERA MR#: [id number] : 1960 Acct:[id number] Age/Sex: 63 / M ADM Date: 06/28/24 Loc: RAD Attending Dr: LINDA JANSEN Ordering Physician: LINDA JANSEN Date of Service: 06/28/24 Procedure(s): XR thoracic spine 3V Accession Number(s): [id number] cc: LINDA JANSEN [place] [id number] Patient Name: DARIUS VALERA MRN: [id number] date: 1960 Sex: M Assigned Patient Location: RAD Current Patient Location: Accession/Order Number: [id number] Exam Date: 06/28/2024 17:55 Report Date: 06/29/2024 [...] Signed By: 06/29/24 1503 DD/ 1501 TD/TT: Senior Specialist: [facility] Heart InstituteRadiology Study observation (narrative)[facility] Heart InstituteXR THORACIC SPINE 3VOrdered By: Radiologist Radiology on 56-89-7659[facility] Work Phone: VITAMIN D 25 HYDROXY,TOT+D2+D3on 22-64-3540ZYF REINA VITAMIN D 25 OH53 ng/mL.[facility] Heart InstituteComment on above:Reference Range: All Ages: Target levels 30 - 100 VITAMIN D-2<1.0.[facility] AtreaonComment on above:This test was developed and its performance characteristics determined by [facility]. It has not been cleared or approved by the Food and Drug Administration. VITAMIN D-352 ng/mL.[facility] AtreaonComment on above:This test was developed and its performance characteristics determined by [facility]. It has not been cleared or approved by the Food and Drug Administration. Performed at: [facility] [address] [place] [id number] Parking Control Officer: Johnnie Jansen MD, Phone: [phone] [facility] HealthcareFerritin [Mass/volume] in Serum or PlasmaOrdered By: Irene Solares on 50-71-6591Futvrqpt [Mass/Vol]Ferritin [Mass/volume] in Serum or Ihhypp56.9-336.2FFostoria City HospitalFerritin [Mass/Vol]63.9 ng/mL 23.9-336.2FFostoria City HospitalFolate [Mass/volume] in Serum or PlasmaOrdered By: Irene Solares on 46-07-3539Egtdeo [Mass/Vol]Folate [Mass/volume] in Serum or Plasma>5.9Fire[facility] Regional Medical CenterComment on above:Folate reference range: >5.9 ng/mlThe WHO technical consultation on folate and vitamin l70xmlkbqseezml has determined that folate concentrations lessthan 4 ng/ml are considered deficient.Folate [Mass/Vol]16.9 ng/mL>5.9[facility] HospitalComment on above:Folate reference range: >5.9 ng/mlThe WHO technical consultation on folate and vitamin u73jpuvgymewzec has determined that folate concentrations lessthan 4 ng/ml are considered deficient.Iron [Mass/volume] in Serum or PlasmaOrdered By: Irene Solares on 91-77-9018Durc [Mass/Vol]Iron [Mass/volume] in Serum or Bdhjig58-177QsnqekluvBucyrus Community HospitalIron [Mass/Vol]83 ug/hC24-516YyroftldqUniversity Hospitals Conneaut Medical Centererum or plasma 25-hydroxycalciferol measurement (mass/volume)Ordered By: Irene Solares on 827120-godkfxmcpuaktz D2 [Mass/Vol]Serum or plasma 25-hydroxycalciferol measurement (mass/volume).[facility] HospitalComment on above: This test was developed and its performance characteristicsdetermined by [facility]. It has not been cleared or approvedby the Food and Drug Administration. 25-hydroxyvitamin D2 [Mass/Vol]<1.0 ng/mL.[facility] Comment on above:This test was developed and its performance characteristicsdetermined by [facility]. It has not been cleared or approvedby the Food and Drug Administration.Serum or plasma 25-hydroxyvitamin D measurement (mass/volume)Ordered By: Irene Solares on 000769-dxjkzphdxlxleh D [Mass/Vol]Serum or plasma 25-hydroxyvitamin D measurement (mass/volume). [facility] HospitalComment on above:Reference Range:All Ages: Target levels 30 - [address]39[address]-cfqseiucigbyqx D [Mass/Vol]53 ng/mL.[facility] HospitalComment on above:Reference Range:All Ages: Target levels 30 - 100 Serum or plasma calcidiol measurement (mass/volume)Ordered By: Irene Solares on 617054-umyhvgryhgmgql D3 [Mass/Vol]Serum or plasma calcidiol measurement (mass/volume).[facility] HospitalComment on above:This test was developed and its performance characteristicsdetermined by [facility]. It has not been cleared or approvedby the Food and Drug Administration.Performed at: [facility] [address] [place], [place] [id number] Director: Johnnie Jansen MD, Phone: [phone]-fwjpllmioxnsgv D3 [Mass/Vol]52 ng/mL. [facility] HospitalComment on above:This test was developed and its performance characteristicsdetermined by [facility]. It has not been cleared or approvedby the Food and Drug Administration.Performed at: [facility] [address] [place], [place] [id number] Director: Johnnie Jansen MD, Phone: [phone] or plasma iron binding capacity measurement (mass/volume) Ordered By: Irene Solares on 79-14-0327Jglh binding capacity [Mass/Vol]Iron binding capacity [Mass/volume] in Serum or Bvzfyr336-836KftkzftgaBucyrus Community HospitalIron binding capacity [Mass/Vol]304 ug/tR503-893Ombbrtdxr82 Williams Streeterum or plasma iron saturation measurement (mass fraction) Ordered By: Irene Solares on 94-04-6223Emjq saturation [Mass fraction]Iron saturation [Mass Fraction] in Serum or Fzcsly56-88SazetmusfBucyrus Community HospitalIron saturation [Mass fraction]27.3 %20-50[facility] HospitalTransferrin [Mass/volume] in Serum or PlasmaOrdered By: Irene Solares on 83-47-0242Trmcizuotdt [Mass/Vol]Transferrin [Mass/volume] in Serum or Plasma 203-362Bu[facility] Community HospitalTransferrin [Mass/Vol]217 mg/eD732-774 [facility] HospitalVitamin B12 ser/plasOrdered By: Irene Solares on 32-25-2013Sxhdsbwhj (Vitamin B12) [Mass/Vol]Vitamin B12 ser/cmyv138-186 [facility] HospitalCobalamin (Vitamin B12) [Mass/Vol]554 pg/mL 180-[facility] Community HospitalAlanine aminotransferase [Enzymatic activity/volume] in Serum or PlasmaOrdered By: Christian Carlos on 04-20-2024 ALT [Catalytic activity/Vol]30 U/L7-[facility] HospitalAlbumin [Mass/volume] in Serum or Plasma by Bromocresol green (BCG) dye binding metho Ordered By: Christian Carlos on 69-09-2513Fqslqgh BCG dye [Mass/Vol]4.1 g/dL 3.5-5.7FFostoria City HospitalAlkaline phosphatase [Enzymatic activity/volume] in Serum or PlasmaOrdered By: Christian Carlos on 04-20-2024 ALP [Catalytic activity/Vol]79 U/J88-696SdppldnlbBucyrus Community Hospital Anisocytosis LM Ql (Bld)Ordered By: Christian Carlos on 85-71-2271Gnzzpaajqivz Ql (Bld)SlightBucyrus Community HospitalAnisocytosis Ql (Bld)Anisocytosis [Presence] in Blood by Light microscopyBucyrus Community Hospital Aspartate aminotransferase [Enzymatic activity/volume] in Serum or PlasmaOrdered By: Christian Carlos on 99-00-3629UJZ [Catalytic activity/Vol]29 U/L13-39 [facility] HospitalBasophils Auto (Bld) [#/Vol]Ordered By: Christian Carlos on 21-18-9196Zudyzruda (Bld) [#/Vol]0.0 10*3/uL0.0-0.2FFostoria City HospitalBasophils/100 WBC Auto (Bld)Ordered By: Christian Carlos on 60-33-3141Hnaubxhca/100 WBC (Bld)0.3 %.[facility] Bilirubin.total [Mass/volume] in Serum or PlasmaOrdered By: Christian Carlos on 03-96-8180Xwiozbzyz [Mass/Vol]1.0 mg/dL0.3-1.0[facility] Calcium [Mass/volume] in Serum or PlasmaOrdered By: Christian Carlos on 02-83-8620Hdbyzts [Mass/Vol]8.8 mg/dL8.6-10.3FFostoria City Hospital Carbon dioxide, total [Moles/volume] in Serum or PlasmaOrdered By: Christian Carlos on 27-36-3652AK7 [Moles/Vol]31.5 mmol/LHigh21.0-31.0[facility] HospitalChloride [Moles/volume] in Serum or PlasmaOrdered By: Christian Carlos on 57-86-4751Gifzyqny [Moles/Vol]105 mmol/M04-630GxhcsxnzdBucyrus Community HospitalComprehensive metabolic panelon 93-73-2443Pgumwty [Mass/Vol]4.1 g/dL3.5 - 5.7 g/dLNONV HealthcareAlbumin/Globulin [Mass ratio]2.2 {ratio}NOMS HealthcareALP [Catalytic activity/Vol]79 U/L34 - 104 U/LNOMS HealthcareALT [Catalytic activity/Vol]30 U/L7 - 52 U/LNOMS HealthcareAnion gap [Moles/Vol]9.3 mmol/L6.0 - 15.0NOMS HealthcareAST [Catalytic activity/Vol]29 U/L13 - 39 U/LNOMS HealthcareBilirubin [Mass/Vol]1.0 mg/dL0.3 - 1.0 mg/dLNONV HealthcareCalcium [Mass/Vol]8.8 mg/dL8.6 - 10.3 mg/dLNONV HealthcareChloride [Moles/Vol]105 mmol/L 98 - 107 mmol/LNOMS HealthcareCO2 [Moles/Vol]31.5 mmol/LHigh21.0 - 31.0 mmol/L [facility] HealthcareCreatinine (U) [Mass/Vol]0.90 mg/dL0.70 - 1.30 mg/dLNONV HealthcareCREATININE CLR CALC XLANFHYA68.01NOMS HealthcareGFR/1.73 sq M.predicted MDRD (S/P/Bld) [Vol rate/Area]mL/min/{1.73_m2}[facility] Healthcare Globulin (S) [Mass/Vol]1.9 g/dLNOMS HealthcareGlucose [Mass/Vol]95 mg/dL70 - 100 mg/dLNONV HealthcareComment on above:Random Glucose Reference Range is [...] mmol/LNOMS HealthcareUrea nitrogen [Mass/Vol]20 mg/dL7 - 25 mg/dLNOMS HealthcareCreatinine [Mass/volume] in Serum or PlasmaOrdered By: Christian Carlos on 04-20-2024 Creatinine [Mass/Vol]0.90 mg/dL0.70-1.30[facility] Eosinophils Auto (Bld) [#/Vol]Ordered By: Christian Carlos on 04-20-2024 Eosinophils (Bld) [#/Vol]0.2 10*3/uL0.0-0.45[facility] Eosinophils/100 WBC Auto (Bld)Ordered By: Christian Carlos on 04-20-2024 Eosinophils/100 WBC (Bld)1.4 %.[facility] Community HospitalErythrocyte distribution width Auto (RBC) [Ratio]Ordered By: Christian Carlos on 04-20-2024 Erythrocyte distribution width (RBC) [Ratio]13.9 %12.0-14.8[facility] Community HospitalGlobulin Calc (S) [Mass/Vol]Ordered By: Christian Carlos on 09-00-9897Obpsjqpp (S) [Mass/Vol]1.9 g/dLBucyrus Community Hospital Glucose [Mass/volume] in Serum or PlasmaOrdered By: Christian Carlos on 99-03-3117Wobixzs [Mass/Vol]95 mg/dV46-394GomcwnrtaBucyrus Community Hospital Comment on above:ADA recommended reference rangeRandom Glucose Reference Range is dependent on time and content of last meal. Glucose of more than 200 mg/dL in a nonstressed, ambulatory subject supports the diagnosisof Diabetes Mellitus. Hematocrit Auto (Bld) [Volume fraction]Ordered By: Christian Carlos on 25-65-1245Fbgveygkee (Bld) [Volume fraction]43.3 %38.8-50.0[facility] HospitalHemoglobin [Mass/volume] in BloodOrdered By: Christian Carlos on 01-67-8455Tnleqkasfr (Bld) [Mass/Vol]14.8 g/dL13.0-17.0[facility] Community HospitalLDH Lactate to pyruvate reaction [Catalytic activity/Vol]on 99-33-0812FIZ LACTATE FCIIGFUXLTWCD788 U/L140 - 271 U/LNOMS HealthcareLactate dehydrogenase [Enzymatic activity/volume] in Serum or Plasma by Lactate to py Ordered By: Christian Carlos on 35-17-3441YCQ Lactate to pyruvate reaction [Catalytic activity/Vol]212 U/M454-522WnwlzeumhBucyrus Community Hospital Leukocytes [#/volume] corrected for nucleated erythrocytes in Blood by Automated counOrdered By: Christian Carlos on 03-85-6530PKS corrected for nucl RBC Auto (Bld) [#/Vol]13.3 10*3/uLHigh4.1-10.5FFostoria City Hospital Lymphocytes Auto (Bld) [#/Vol]Ordered By: Christian Carlos on 04-20-2024 Lymphocytes (Bld) [#/Vol]9.9 10*3/uLHigh1.00-4.8[facility] HospitalLymphocytes/100 WBC Auto (Bld)Ordered By: Chrisitan Carlos on 04-20-2024 Lymphocytes/100 WBC (Bld)74.8 %.[facility] Auto (RBC) [Entitic mass]Ordered By: Christian Carlos on 17-57-1477LUE (RBC) [Entitic mass]31.2 pg27.5-35.2FOhio State University Wexner Medical CenterHC Auto (RBC) [Mass/Vol] Ordered By: Christian Carlos on 09-38-6366BYQV (RBC) [Mass/Vol]34.2 g/dL 32.5-35.6FOhio State University Wexner Medical CenterV Auto (RBC) [Entitic vol]Ordered By: Christian Carlos on 07-94-7390LUW (RBC) [Entitic vol]91.4 fL83.5-101 [facility] HospitalMicrocytes LM Ql (Bld)Ordered By: Christian Carlos on 14-76-7059Ueaaxtedax Ql (Bld)SlightBucyrus Community HospitalMicrocytes Ql (Bld)Microcytes [Presence] in Blood by Light microscopy [facility] CenterMonocytes Auto (Bld) [#/Vol]Ordered By: Christian Carlos on 91-72-8239Rulpsdsjg (Bld) [#/Vol]0.5 10*3/uL0.0-0.8[facility] HospitalMonocytes/100 WBC Auto (Bld)Ordered By: Christian Carlos on 36-79-5844Lmjqyomoh/100 WBC (Bld)3.7 %.[facility] Neutrophils Auto (Bld) [#/Vol]Ordered By: Christian Carlos on 04-20-2024 Neutrophils (Bld) [#/Vol]2.6 10*3/uL1.8-7.7FFostoria City Hospital Neutrophils/100 WBC Auto (Bld)Ordered By: Christian Carlos on 04-20-2024 Neutrophils/100 WBC (Bld)19.8 %.[facility] HospitalNo Panel Informationon 18-63-8655BNQCFreeman Heart InstituteNo Panel InformationOrdered By: Christian Carlos on 98-62-7838Ruryvpbnm GFR (CKD-EPI)> 60.0 mL/MinBucyrus Community HospitalPhaacy Creatinine Clearance (Chem91.01[facility] Community HospitalNucleated erythrocytes [Presence] in Blood by Automated countOrdered By: Christian Carlos on 52-41-1129Rinqmkpqy RBC Auto Ql (Bld)0.3 /100{WBC}0-0.5 [facility] HospitalPlatelet adequacy [Presence] in Blood by Light microscopyOrdered By: Christian Carlos on 34-40-5491Gkjvuulsi LM Ql (Bld) DecreasedNormLakeHealth TriPoint Medical CenterPlatelet mean volume Auto (Bld) [Entitic vol]Ordered By: Christian Carlos on 19-89-0667Ubwudyum mean volume (Bld) [Entitic vol]8.5 fL6.6-10.1FFostoria City HospitalPlatelet morphology finding [Identifier] in BloodOrdered By: Christian Carlos on 86-17-8123Jrdbpjrs morphology finding Nom (Bld)NormalNormLakeHealth TriPoint Medical CenterPlatelets Auto (Bld) [#/Vol]Ordered By: Christian Carlos on 57-17-1431Miduzenxr (Bld) [#/Vol]108 10*3/gMRrx933-275OuhmzgrffBucyrus Community HospitalPotassium [Moles/volume] in Serum or PlasmaOrdered By: Christian Carlos on 21-50-6552Lygfnitgp [Moles/Vol]3.8 mmol/L3.5-5.1FFostoria City HospitalProtein [Mass/volume] in Serum or PlasmaOrdered By: Christian Carlos on 40-37-2790Aynymzp [Mass/Vol]6.0 g/dLLow6.4-8.9[facility] RBC Auto (Bld) [#/Vol]Ordered By: Christian Carlos on 03-96-9896IFI (Bld) [#/Vol]4.74 10*6/uL3.90-5.60[facility] HospitalRBC morphology Ordered By: Christian Carlos on 50-06-1566KUE morphology finding Nom (Bld)N/A [facility] Medical Centererum or plasma albumin/globulin mass ratio Ordered By: Christian Carlos on 60-64-9733Bebrxwx/Globulin [Mass ratio]2.2 {ratio}[facility] Medical Centererum or plasma anion gap determination Ordered By: Christian Carlos on 60-24-7940Zenmv gap [Moles/Vol]9.3 mmol/L 6.0-15.0[facility] Medical Centerodium [Moles/volume] in Serum or PlasmaOrdered By: Christian Carlos on 12-37-1988Elnsdc [Moles/Vol]142 mmol/L 136-145Bu[facility] Community HospitalUrea nitrogen [Mass/volume] in Serum or PlasmaOrdered By: Christian Carlos on 70-45-1826Qgoy nitrogen [Mass/Vol]20 mg/dL7-25Bu[facility] Community HospitalWBC Auto (Bld) [#/Vol]Ordered By: Christian Carlos on 57-37-3663KTU (Bld) [#/Vol]13.3 10*3/uLHigh4.1-10.5 [facility] HospitalNo Panel InformationOrdered By: Christian Carlos on 92-63-7401ILR CommentSee commentBucyrus Community Hospital Comment on above:Slide referred to pathologist for reviewSmudge cell detection Ordered By: Christian Carlos on 33-02-0679Hawilj cells LM Ql (Bld)[facility] Memorial Hospitalmudge cells [Presence] in Blood by Light microscopyOrdered By: Christian Carlos on 87-47-7868Zcqbnw cells LM Ql (Bld) Smudge cell detectionBucyrus Community HospitalConsultation Noteon 81-33-8332Gjrbbexebxam [id number]#1.00TIFF [facility] - DublinComment on above:Other Comment: FILING ERROR CRRECG COMPLETEon 02-38-0245Tzcexb Rate71 BPMCleSelect Medical Specialty Hospital - CincinnatiCalculated P Axis12 degreesClemercy health fairfield hospital ClinicCalculated R [place]-15 degreesClemercy health fairfield hospital ClinicCalculated T Axis28 degreesCleSelect Medical Specialty Hospital - CincinnatiP-R Xemlegbl574 msCleveland ClinicQRS Wszzpyzk99 msCleveland ClinicQT Txvuijvu541 msCleveland ClinicQTC Calculation (Caro)439 msCleveland ClinicVentricular Rate71 BPMOhio Valley Surgical Hospital for Release of Medical Recordson 10-25-9591Ertp for Release of Medical Records [id number]#1.00TIFChildren's Hospital of ColumbusLab Reportson 55-65-3097Ioa Reports [id number]#1.00Medina Hospitalcreenson 85-96-9199Ncavkox [id number]#1.00[facility] HospitalAmbulatory Visit Summaryon 07-50-9535Eyyxctajmv Visit Summary SOTO DARIUS Giles :1960 Visit Date:06/02/2023 Ambulatory Visit Instructions Your Diagnosis Ureteral stone with hydronephrosis Erectile dysfunction Tests Performed Urnls Dip Stick Auto w/o Microscopy POC 09180 Your Care Team Attending Physician - Iesha Gamino MD This Is Your Medications List amlodipine aspirin (aspirin 81 mg oral tablet) atenolol (atenolol 100 mg Tab) hydrochlorothiazide-lisinopril (hydrochlorothiazide-lisinopril 12.5 mg-20 mg Tab) omega-3 polyunsaturated fatty acids ([place]-3) potassium chloride (Klor-Con) Discharge Vitals Heart Rate [...] Every day Unchanged omega-3 polyunsaturated fatty acids ([place]-3) Unchanged potassium chloride (Klor-Con) Test Results Urnls Dip Stick Auto w/o Microscopy POC 72013 (06/02/2023) Bilirubin Urine Dipstick - Negative Blood Urine Dipstick - Trace-intact Glucose Urine Dipstick - Negative Ketones Urine Dipstick - Negative Leukocytes Urine Dipstick - Negative Nitrite Urine Dipstick - Negative Protein Urine Dipstick - Negative Specific [place] Urine Dipstick - 1.015 Urine Appearance Urine [...] apnea Ureteral stone Ureteral stone with hydronephrosis [facility] Educationon 06-02-2023 Patient EducationUrology Erectile Dysfunction Erectile dysfunction [...] these instructions at home: Medicines ? Take ywfr-vwp-yvshpvn and prescription medicines only as told by [...] These products include cig (more content not included)...[facility] Urology Office/Clinic Noteon 44-79-4654Hfnpuhx Office/Clinic NoteChief Complaint follow up to [facility]/consult HPI Staff 62 year old male seen at [facility] consult for Lt. UVJ stone,hydro,renal colic, [...] by PCP Denies medical issues, hx of [place], stroke or DM2. On ASA 81mg Portions of this record may have been created with voice recognition artificial intelligence software, specifically [employer], [employer] Plus and or [employer]. Substitutions may have occurred due to the inherent limitations of voice recognition and artificial intelligence software. 1. Ureteral stone with hydronephrosis (N13.2: Hydronephrosis with renal and ureteral calculous obstruction) Last stone event 10 years ago, denies surgical intervention. Pt presented to [facility] ER 04/14/23 with uncontrolled left flank [...] oxalate intake fro (more content not included)...Normal [facility] Medical CenterComment on above:Result Comment: Electronically Signed By: Iesah Gamino MD\.br\Date and Time Signed: 06/02/23 17:30 EDT\.br\Electronically Co-Signed By: Patience Castellon\.br\Date and Time Co- Signed: 06/02/23 16:04 EDTRAD - Ultrasound Reporton 40-65-4995RCV - Ultrasound [id number]#1.00CD:[address] [place], [place] [address]Consultation Noteon 50-44-7715Gwycvffbimbt Note [id number]#1.00CD:[address] [place], [place] [address]Insurance Correspondence Officeon 07-58-7477Nwkqbrymn Correspondence [id number]#1.00CD:[address] [place], [place] [address]Lab Reportson 75-34-6753Fth Reports [id number]#1.00CD:[address] [place], [place] [address]Consultation Noteon 88-13-0549Pzmbwgxxhsul Note [id number]#1.00CD:[address] [place], [place] [address]Operative Reporton 36-26-8504Zvjuuyssr Report [id number]#1.00CD:[address] [place], [place] [address]RAD - MISCon 16-40-5105QGA - MISC [id number]#1.00CD:[address] [place], [place] [address]RAD - Ultrasound Reporton 76-11-0485RDB - Ultrasound Report [id number]#1.00CD:127[facility] DublinRAD - [place] Reporton 68-16-4654FDG - CT Report [id number]#1.00CD:127[facility] - DublinConsultation Noteon 75-78-1303Hwwcgtszwxeg Note [id number]#1.00CD:127[facility] - DublinMRI ANKLE RT WO CONon 16-96-5018ZOU ANKLE RT WO CONEXAM: MRI ANKLE RT [...] Electronically authenticated by: JANAY PANDYA Date: 2023-01-22 07:[address] [place] [address] AUTO DIFFon 47-18-5272FMXA #0.0 103/ulNormal0.0-0.1The German HospitalComment on above:Performed By: #### CBC #### [facility] [address] [place] [address] Dr. Yilan ChangBasophils/100 WBC (Bld)0.4 %Normal0.2-2.0[facility] Comment on above:Performed By: #### CBC #### [facility] [address] [place] [address] Dr. Gautam Lowe #0.1 103/ulNormal0.0-0.7The [facility] HospitalComment on above: Performed By: #### CBC #### [facility] [address] [place] [address] Dr. Gautam Gonzalezosinophils/100 WBC (Bld)1.3 %Normal0.9-7.0[facility] Comment on above:Performed By: #### CBC #### [facility] [address] [place] [address] Dr. Gautam Gonzalezrythrocyte distribution width (RBC) [Ratio]12.6 %Zzoajt43.0-15.0 The German HospitalComment on above:Performed By: #### CBC #### [facility] [address] [place] [address] Dr. Gautam VanHematocrit (Bld) [Volume fraction]47.0 %Unfisk05.0-54.0The German HospitalComment on above:Performed By: #### CBC #### [facility] [address] [place] [address] Dr. Gautam VanHemoglobin (Bld) [Mass/Vol]16.1 g/ySWmiypx21.0-18.0The German HospitalComment on above:Performed By: #### CBC #### [facility] [address] [place] [address] Dr. Gautam Romano #0.02 10e3/ulNormal0.00-0.03The German HospitalComment on above:Performed By: #### CBC #### [facility] [address] [place] [address] Dr. Gautam Romano %0.2 %Normal0.0-0.5The German HospitalComment on above: Performed By: #### CBC #### [facility] [address] [place], [place] [address] Dr. Gautam Ford #7.0 103/ulCritically high1.2-3.8[facility] Comment on above:Performed By: #### CBC #### [facility] [address] [place] [address] Dr. Gautam Crumhocytes/100 WBC (Bld)64.7 %Critically high20.5-60.0The German HospitalComment on above:Performed By: #### CBC #### [facility] [address] [place] [address] Dr. Gautam Ramirez DIFF REQNONormalThe German HospitalComment on above: Performed By: #### CBC #### [facility] [address] [place] [address] Dr. Gautam Aguilar (RBC) [Entitic mass]30.7 cjNxkbrt61.9-34.0The German HospitalComment on above:Performed By: #### CBC #### [facility] [address] [place] [address] Dr. Gautam Aguilar (RBC) [Mass/Vol]34.3 g/gQCadbwe32.9-35.2The German HospitalComment on above:Performed By: #### CBC #### [facility] [address] [place] [address] Dr. Gautam Aguilar (RBC) [Entitic vol]89.7 lOHqkjts23.0-94.0The German HospitalComment on above:Performed By: #### CBC #### [facility] [address] [place] [address] Dr. Gautam Kenney #0.5 103/ulNormal0.3-0.8The German HospitalComment on above:Performed By: #### CBC #### [facility] [address] [place] [address] Dr. Gautam Westbrookocytes/100 WBC (Bld)4.6 %Normal1.7-12.0[facility] Comment on above:Performed By: #### CBC #### [facility] [address] [address] [address] Gautam Mercer #3.1 103/ulNormal1.4-6.5The German HospitalComment on above:Performed By: #### CBC #### [facility] [address] [address] [address] Gautam Garzautrophils/100 WBC (Bld)28.8 %Critically low43.0-75.0The German HospitalComment on above:Performed By: #### CBC #### [facility] [address] [address] [address] Gautam VanPlatelet mean volume (Bld) [Entitic vol]10.6 fLNormal9.5-13.5The [facility] HospitalCompromed[facility] on above:Performed By: #### CBC #### [facility] [address] [place] [address] Dr. Gautam VanPLT144 103/ulCritically zmy340-948G[facility]Comp[facility] on above:Performed By: #### CBC #### [facility] [address] [place] [address] Dr. Gautam VanRBC5.24 106/ulNormal4.70-6.10The [facility] on above:Performed By: #### CBC #### [facility] [address] [place] [address] Dr. Gautam VanWBC10.8 103/ulNormal4.0-11.0[facility] on above:Performed By: #### CBC #### [facility] [address] [place] [address] Dr. Gautam VanLIPID PROFILEon 38-20-8673HXXO-HDL RATIO NORMSEE [facility] on above:Result Comment: 3.3 - 4.4 LOW RISK 4.4 - 7.1 AVERAGE RISK 7.1 - 11.0 MODERATE RISK >11.0 HIGH RISKPerformed By: #### LIPID, T4, TSH, CMP ####[facility] [address] [address]Dr. Yilan ChangCholesterol [Mass/Vol]183 mg/dLNormal<=200The German HospitalComment on above:Performed By: #### LIPID, T4, TSH, CMP ####[facility] [address] [address]Dr. Gautam Van Cholesterol in HDL [Mass/Vol]70 mg/dLCritically qngi46-34JkgMercy Health St. [facility] Comment on above:Performed By: #### LIPID, T4, TSH, CMP ####[facility] [address] [address]Dr. Gautam VanCholesterol in LDL [Mass/Vol]104.2 mg/dLBrecksville VA / Crille HospitalComment on above:Performed By: #### LIPID, T4, TSH, CMP ####[facility] [address] [place], [place] [address]Dr. Opallan ChangCholesterol.total/Cholesterol in HDL [Mass ratio]2.6 {ratio}NormalMercy Health St. Charles HospitalCompromedica mon[facility] on above:Performed By: #### LIPID, T4, TSH, CMP ####[facility] [address] [place], [place] [address]Dr. Yilan ChangHDL NORMAL> or = 60 mg/dl - LOW CARDIOVASCULAR RISK <40 mg/dl - HIGH CARDIOVASCULAR RISKBrecksville VA / Crille HospitalCompromedica [facility] on above:Performed By: #### LIPID, T4, TSH, CMP ####[facility] [address] [place], [place] [address]Dr. Yilan ChangLDL CALC NORMALSEE BELOWNoCentervilleComment on above:Result Comment: <100 mg/dl OPTIMAL 100 - 129 mg/dl NEAR OR ABOVE OPTIMAL 130 - 159 mg/dl BORDERLINE HIGH 160 - 189 mg/dl HIGH >190 mg/dl VERY HIGHPerformed By: #### LIPID, T4, TSH, CMP ####[facility] [address] [place], [place] [address]Dr. Yilan ChangTriglyceride [Mass/Vol]44 mg/dLNormal <=150[facility] on above:Performed By: #### LIPID, T4, TSH, CMP ####[facility] [address] [place], [place] [address]LiDr. Gautam ShahidLDL CALC8.8 mg/dLNormalThe German HospitalComment on above: Performed By: #### LIPID, T4, TSH, CMP ####[facility] [address] [address]Dr. Gautam BennettF 14(COMP METB)on 12-27-2022 Albumin [Mass/Vol]4.0 g/dLNormal3.4-5.0The German HospitalComment on above: Performed By: #### LIPID, T4, TSH, CMP #### [facility] [address] [address] [address] Gautam VanAlbumin/Globulin [Mass ratio]1.2 {ratio}NormalThe [facility] on above:Performed By: #### LIPID, T4, TSH, CMP #### [facility] [address] [address] [address] Gautam Gleason [Catalytic activity/Vol]104 U/OFhatzj75-092Ygf [facility] on above:Performed By: #### LIPID, T4, TSH, CMP #### [facility] [address] [address] [address] Gautam Herrmann [Catalytic activity/Vol]36 U/GKfdbye23-43Ask [facility] on above:Performed By: #### LIPID, T4, TSH, CMP #### [facility] [address] [address] [address] Gautam Zambrano gap [Moles/Vol]9.8 mmol/LNormalThe [facility] on above:Performed By: #### LIPID, T4, TSH, CMP #### [facility] [address] [address] [address] Gautam Westfall [Catalytic activity/Vol]22 U/EGqyefd50-84Xua [facility] on above:Performed By: #### LIPID, T4, TSH, CMP #### [facility] [address] [address] [address] Gautam Fernandezirubin [Mass/Vol]0.9 mg/dLNormal0.2-1.0[facility] Comment on above:Performed By: #### LIPID, T4, TSH, CMP #### [facility] [address] [place] [address] Dr. Gautam VanCalcium [Mass/Vol]9.1 mg/dLNormal8.5-10.1[facility] Comment on above:Performed By: #### LIPID, T4, TSH, CMP #### [facility] [address] [place] [address] Dr. Gautam VanChloride [Moles/Vol]103 mmol/JDqmhcn16-177MpqMercy Health St. [facility] Comment on above:Performed By: #### LIPID, T4, TSH, CMP #### [facility] [address] [place] [address] Dr. Gautam VanCO2 [Moles/Vol]30.6 mmol/VEruwlx91.0-32.0[facility] Comment on above:Performed By: #### LIPID, T4, TSH, CMP #### [facility] [address] [place] [address] Dr. Gautam VanCreatinine [Mass/Vol]0.81 mg/dLNormal0.70-1.30The [facility] HospitalComment on above:Performed By: #### LIPID, T4, TSH, CMP #### [facility] [address] [place] [address] Dr. Gautam GonzalezGFR-AF BENINESE>60Normal>=60The [facility] HospitalComment on above:Performed By: #### LIPID, T4, TSH, CMP #### [facility] [address] [place] [address] Dr. Gautam GonzalezGFR-NON AF BENINESE>60Normal>=60The German HospitalComment on above:Performed By: #### LIPID, T4, TSH, CMP #### [facility] [address] [place] [address] Dr. Gautam VanGlobulin (S) [Mass/Vol]3.3 g/dLNormalThe German HospitalComment on above:Performed By: #### LIPID, T4, TSH, CMP #### [facility] [address] [address] [address] Gautam VanGlucose [Mass/Vol]103 mg/qJFcanhl34-761Vgc [facility] Comment on above:Performed By: #### LIPID, T4, TSH, CMP #### [facility] [address] [place] [address] Dr. Gautam VanPotassium [Moles/Vol]4.4 mmol/LNormal3.5-5.1[facility] Comment on above:Performed By: #### LIPID, T4, TSH, CMP #### [facility] [address] [place] [address] Dr. Gautam VanProtein [Mass/Vol]7.3 g/dLNormal6.4-8.2[facility] Comment on above:Performed By: #### LIPID, T4, TSH, CMP #### [facility] [address] [place] [address] Dr. Gautam VanSodium [Moles/Vol]139 mmol/UGgeezw713-590Fcl [facility] Comment on above:Performed By: #### LIPID, T4, TSH, CMP #### [facility] [address] [place] [address] Dr. Gautam VanUrea nitrogen [Mass/Vol]16.0 mg/dLNormal7.0-18.0[facility] St. Charles HospitalComment on above:Performed By: #### LIPID, T4, TSH, CMP #### [facility] [address] [place] [address] Dr. Gautam Jacobs nitrogen/Creatinine [Mass ratio]19.8 mg/mgNormalThe [facility] HospitalComment on above:Performed By: #### LIPID, T4, TSH, CMP #### [facility] [address] [place] [address] Dr. Gautam VanT4on 16-63-1450P2 [Mass/Vol]9.10 ug/dLNormal4.50-12.10The [facility] HospitalComment on above:Performed By: #### LIPID, T4, TSH, CMP ####[facility] [address] [place], [place] [address]NlDr. Florez Jabari 75-52-9779PYX5.043 uIU/mLNormal0.358-3.740[facility] Comment on above:Performed By: #### LIPID, T4, TSH, CMP #### [facility] [address] [place], [place] [address] Dr. Gautam VanCT FOOT RT WO CONon 03-53-6153SA FOOT RT WO CONEXAMINATION: CT FOOT RT [...] Electronically authenticated by: KIRSTIE GUERRERO Date: 2022-11-17 08:57B[facility]ksville [facility] / Crille HospitalBasi metabolic 2000 panelon 17-93-9649Pclqb gap [Moles/Vol]9 mmol/LNormal9-18C[facility] HospitalComment on above:Order Comment: Specimen Type: BLOOD SPECIMEN Ordering Facility: [facility] Address: [address] [place] [address]Mfqxueybq By: #### 01913-2, 14036-8 #### [facility] CLIA [id number] [address] [facility] [place] [address] [place] AMERICACalcium [Mass/Vol]9.4 mg/dLNormal8.5-10.2 [facility] HospitalComment on above:Order Comment: Specimen Type: BLOOD SPECIMEN Ordering Facility: [facility] Address: [address] [place], [place] [address]Performed By: #### 41510-9, 36411-4 #### [facility] CLIA [id number] [address] [place] [address] [place] AMERICAChloride [Moles/Vol]101 mmol/LNormal 97-105Av HospitalComment on above:Order Comment: Specimen Type: BLOOD SPECIMEN Ordering Facility: [facility] Address: [address] [place], [place] [address]Performed By: #### 42862-8, 10446-4 #### [facility] CLIA [id number] [address] [place] [address] [place] AMERICACO2 [Moles/Vol]30 mmol/KMfncim09-41Kfpt HospitalComment on above:Order Comment: Specimen Type: BLOOD SPECIMEN Ordering Facility: [facility] Address: [address] [place], [place] [address]Performed By: #### 89660-9, 95571-4 #### [facility] [place] [id number] [address] [place] [address] [place] AMERICACreatinine [Mass/Vol]1.01 mg/dLNormal 0.73-1.22Av HospitalComment on above:Order Comment: Specimen Type: BLOOD SPECIMEN Ordering Facility: [facility] Address: [address] [place], [place] [address]Performed By: #### 61649-6, 06863-4 #### [facility] [place] [id number] [address] [place] [address] [place] AMERICAESTIMATED GLOMERULAR FILTRATION RATE84 mL/min/1.73m???Normal>=60Av HospitalComment on above:Order Comment: Specimen Type: BLOOD SPECIMEN Ordering Facility: [facility] Address: [address] [place], [place] [address]Result Comment: Estimated Glomerular Filtration Rate (eGFR) is [...] not accurately reflect actual GFR.Performed By: #### 45208-5, 30063-7 #### [facility] CLIA [id number] [address] [place] [address] [place] AMERICAGlucose [Mass/Vol]92 mg/pPNfrfni50-80Wpea HospitalComment on above:Order Comment: Specimen Type: BLOOD SPECIMEN Ordering Facility: [facility] Address: [address] [place], [place] [address] Comment: The [place] Diabetes Association (ADA) provides guidance for cutoff [...] Standards of Medical Care in Diabetes 2016, [place] Diabetes Association. Diabetes Care. 2016.39(Suppl 1).Performed By: #### 00833-0, 39670-8 #### [facility] CLIA [id number] [address] [place] [address] [place] AMERICAPotassium [Moles/Vol]4.4 mmol/LNormal 3.7-5.1[facility] HospitalComment on above:Order Comment: Specimen Type: BLOOD SPECIMEN Ordering Facility: [facility] Address: [address] [place], [place] [address]Performed By: #### 34028-8, 76211-2 #### [facility] CLIA [id number] [address] [place] [address] [place] AMERICASodium [Moles/Vol]140 mmol/RTucmmt205-813 [facility] HospitalComment on above:Order Comment: Specimen Type: BLOOD SPECIMEN Ordering Facility: [facility] Address: [address] [place] [address]Bwwamhbcv By: #### 94612-0, 44602-2 #### [facility] CLIA [id number] [address] [place] [address] [place] AMERICAUrea nitrogen [Mass/Vol]22 mg/dLNormal 9-24Avon HospitalComment on above:Order Comment: Specimen Type: BLOOD SPECIMEN Ordering Facility: [facility] Address: [address] [facility] [address]Uityrfvbg By: #### 83879-1, 34773-7 #### [facility] CLIA [id number] [address] [place] [address] [place] AMERICAAnion gap [Moles/Vol]9 mmol/L9 - 18 mmol/LCleveland ClinicCalcium [Mass/Vol]9.4 mg/dL8.5 - 10.2 mg/dLClemercy health fairfield hospital ClinicChloride [Moles/Vol]101 mmol/L97 - 105 mmol/LCleveland ClinicCO2 [Moles/Vol]30 mmol/L22 - 30 mmol/LCleveland ClinicCreatinine [Mass/Vol]1.01 mg/dL0.73 - 1.22 mg/dLUniversity Hospitals Cleveland Medical CenterEstimated Glomerular Filtration Rate84 mL/min/1.73m>=60 mL/min/1.73mCleveland ClinicGlucose [Mass/Vol]92 mg/dL74 - 99 mg/dLUniversity Hospitals Cleveland Medical CenterPotassium [Moles/Vol]4.4 mmol/L3.7 - 5.1 mmol/LCleveland ClinicSodium [Moles/Vol]140 mmol/L136 - 144 mmol/LCleveland ClinicUrea nitrogen [Mass/Vol]22 mg/dL9 - 24 mg/dLUniversity Hospitals Cleveland Medical CenterMAGNESIUM BLDon 10-17-2022 Magnesium [Mass/Vol]2.1 mg/dL1.7 - 2.3 mg/dLUniversity Hospitals Cleveland Medical CenterMagnesium SerPl-mCnc on 25-65-8676Ihxpprvdn [Mass/Vol]2.1 mg/dLNormal1.7-2.3Avon HospitalComment on above:Order Comment: Specimen Type: BLOOD SPECIMEN Ordering Facility: [facility] Address: [place] [address]Xunezlhnp By: #### 62722-8, 41815-2 #### [facility] CLIA [id number] [address] [place] [place] [address] [place] AMERICAXR ANKLE RT MIN 3 VIEWSon 63-12-7312KZ ANKLE RT MIN 3 VIEWSEXAM: XR ANKLE [...] Electronically authenticated by: DIANE MENEZES Date: 2022-10-09 07:[address] [place], [place] [address]ARRHYTHMIA TRANS TELE MEASUREon 58-60-8245Wmfrquy [place] Interval 179Cleveland ClinicMEASURE QRS Ikjlfdkf68Dzkukecpv ClinicMEASURE QT Ugtrcchg062 Herrera ClinicMEASURE RR INTERVAL MAX78.86Cleveland ClinicSymptomsroutine West ClinicARRHYTHMIA TRANS TELE MEASUREon 30-52-3924Wzjmdfzztn-Activity tried a couple different timesCleveland ClinicMeasure MO Chcadoar365Trjxxyjjs ClinicMEASURE QRS Wyfbyjku94Hydkenwbz ClinicMEASURE QT Suxxqrej917Fwkqwzvwl ClinicMEASURE RR INTERVAL MAX91.21Cleveland ClinicSymptomsroutineWest ClinicARRHYTHMIA TRANS TELE MEASUREon 24-56-8059Vgkztga MO Quibhgqo085Pckefyvjw ClinicMEASURE QRS Padfqfvp47Jassbueub ClinicMEASURE QT Goyrittu667Vnhrxbupn ClinicMEASURE RR INTERVAL MAX81.74Cleveland ClinicSymptomsroutineWest ClinicARRHYTHMIA TRANS TELE MEASUREon 21-84-9429Eaciosx MO Kdrxtazi136Aqvbgduhz ClinicMEASURE QRS Nlopbadv83Ifwjjxnmw ClinicMEASURE QT Efczejws704Kjmukqzli ClinicMEASURE RR INTERVAL MAX82.87CleMercy Health Urbana HospitalCREATININE, BLOOD (POC)on 40-79-4469Jrqydnqbta [Mass/Vol]0.90 mg/dL0.7 - 1.4 mg/dLWest ClinicGFR/1.73 sq M.predicted among non-blacks MDRD (S/P/Bld) [Vol rate/Area]mL/min/{1.73_m2}[facility] PULMONARY VEIN W IVCONon 30-92-8382Laqcfyywy ResultACTIONABLEAbnormalCleveland ClinicARRHYTHMIA TRANS TELE MEASUREon 76-90-8909Sukizcj MO Zyfgtqvf713Qukjmenbs ClinicMEASURE QRS Bsmyvqim32Mxeoxwcvh ClinicMEASURE QT Xysiitom214Vibcxwzlx ClinicMEASURE RR INTERVAL MAX75.85CleSt. [facility]'s [facility] - BP is elevated, pt. feeling palpitaions when lying down, tired-3-5 dayWest ClinicARRHYTHMIA TRANS TELE MEASUREon 37-84-9167Mxzjlrs MO Opmrohrf995Djevrusta ClinicMEASURE QRS Interval 107Clemercy health fairfield hospital ClinicMEASURE QT Vocfbgmv629Xlfymoiqz ClinicMEASURE RR INTERVAL MAX 75.85CleUC HealthymptomsrHighsmith-Rainey Specialty Hospital ClinicARRHYTHMIA TRANS TELE MEASUREon 80-75-7553Eilgrpm MO Cuarxogt346Hrrtgzzni ClinicMEASURE QRS Sexkvlbo85 Herrera ClinicMEASURE QT Tviuslcy626Uaemspegu ClinicMEASURE RR INTERVAL MAX 77.16CleUC HealthymptomsroutineWest ClinicARRHYTHMIA TRANS TELE MEASUREon 37-93-2902Pevglpo MO Fjdygnut179Sqwisyemg ClinicMEASURE QRS Myasykjd03 Herrera ClinicMEASURE QT Wjgoljfd131Ofnifupmy ClinicMEASURE RR INTERVAL MAX 70.82CleUC HealthymptomsroutineCleveland ClinicARRHYTHMIA TRANS TELE MEASUREon 30-51-8761Lljcvje MO Mbzmkntl602Uofvctcfz ClinicMEASURE QRS Fqgquzvr14 Herrera ClinicMEASURE QT Bwcyheyj554Unxyiaabg ClinicMEASURE RR INTERVAL MAX 71.95CleGenesis Hospitalptomsrmoberly regional medical centerineWest ClinicARRHYTHMIA TRANS TELE MEASUREon 96-05-7496Inebyzf MO Qeqmllrx644Tdbybsgqd ClinicMEASURE QRS Zrwmscrx98 Herrera ClinicMEASURE QT Xlxkjazp627Jmohlvaca ClinicMEASURE RR INTERVAL MAX 72.53Cleveland United HospitalymptomsroutineCleveland ClinicARRHYTHMIA TRANS TELE MEASUREon 62-79-4876Zetuafx MO Xbkpnmea320Pixlbrfon ClinicMEASURE QRS Itnfedqf24 Herrera ClinicMEASURE QT Lwixlvab944Bhhnwhntl ClinicMEASURE RR INTERVAL MAX 67.8C[facility] United HospitalymptomsrHighsmith-Rainey Specialty Hospital ClinicARRHYTHMIA TRANS TELE MEASURE on 35-43-2087Wscmshx MO Rchhpwld078Fifbvvlxb ClinicMEASURE QRS Zhlacwct78 Herrera ClinicMEASURE QT Gcgjaghv831Oegmjdqsd ClinicMEASURE RR INTERVAL MAX 71.89CleUC HealthymptomsroutineCleveland ClinicARRHYTHMIA TRANS TELE MEASUREon 12-47-4432Whbioml MO Wfmefpze570Ermsspjbx ClinicMEASURE QRS Mmgpdiui20 Herrera ClinicMEASURE QT Qfmgkdff447Tdeigvybq ClinicMEASURE RR INTERVAL MAX 77.83CleUC HealthymptomsroutineCleveland ClinicARRHYTHMIA TRANS TELE MEASUREon 47-52-9442Mcyanmn MO Rarczpcb801Fszfcnubq ClinicMEASURE QRS Wyucodgq46 Herrera ClinicMEASURE QT Zbhbxmgs971Idrsqwdgk ClinicMEASURE RR INTERVAL MAX 79.56Cleveland United HospitalymptomsroutineCleveland ClinicARRHYTHMIA TRANS TELE MEASUREon 11-04-8419Jjoupmf MO Vsifxydw388Nmmuulsrm ClinicMEASURE QRS Bzrowwek49 Herrera ClinicMEASURE QT Qcyxumqy399Uudelwmpw ClinicMEASURE RR INTERVAL MAX 66.79CleUC HealthymptomsRoutineCleveland ClinicARRHYTHMIA TRANS TELE MEASUREon 34-39-9274Cyaczqb MO Albmyuch476Qctikqikp ClinicMEASURE QRS Gvwkzrrr19 Herrera ClinicMEASURE QT Gfnqdtwy174Alfdfyrxd ClinicMEASURE RR INTERVAL MAX 68.15Cleveland ClinicSymptomsroutineCleveland ClinicARRHYTHMIA TRANS TELE MEASUREon 67-83-9540Vpweara MO Zjproxiy413Fdorsqaui ClinicMEASURE QRS Lrjyfkfa38 Herrera ClinicMEASURE QT Nimacybx253Racyrfjzc ClinicMEASURE RR INTERVAL MAX 74.32Cleveland ClinicSymptomsroutineCleveland ClinicARRHYTHMIA TRANS TELE MEASUREon 89-81-6226Osohjmi MO Qenadgqf396Vyowruzff ClinicMEASURE QRS Qwnoslyy26 Herrera ClinicMEASURE QT Fnmahcvu485Smvtkhunb ClinicMEASURE RR INTERVAL MAX 73.06CleUC HealthymptomsbaselineCleveland ClinicARRHYTHMIA TRANS TELE MEASUREon 88-01-4093Cfvfago MO Nurjiruu919Yfvoofkps ClinicMEASURE QRS Dwczniwr36 West ClinicMEASURE QT Isotmtrf238Vfryoqgfb ClinicMEASLACKEY [facility] RR INTERVAL MAX 70.75West ClinicSymptomsbaselineUniversity Hospitals Cleveland Medical CenterTobacco Screening.on 50-39-1071Rupbijh use status CPHSb) NoMP-[facility] [address] DO Work Phone: No Panel Informationon 07-42-165941.0\S\27.0Normal 22.0-30.0MP-[facility] [address] DO Work Phone: Comment on above:PERFORMED BY:[facility] [place], [place] [phone] MEDICAL DIRECTORADEEL LOPES M.D.99\S\75Pxbtbd85-237JP-[facility] [place] [facility] DO Work Phone: [phone] 911-25123.8\S\3.9Woamjo9.5-5.1MP-[facility] [address] DO Work Phone: [phone]\S\244Jziwrr590-222RK-Vpokc [place] [facility] [address] DO Work Phone: IO EKG Electrocardiogram- 12 Leadon 17-25-7655QN EKG Electrocardiogram- 12 LeadSee Scanned DocumentMP-[facility] [address] DO Work Phone: Office Visit (Cardiology)on 24-33-2990Auqzzo-up visit Diagnoses/Problems Assessed Essential hypertension (401.9) (I10) [...] Vital Signs Recorded: 26Jun2021 01:28PMRecorded: 26Jun2021 01:06PM Oddhdqwo762, RUE, Yylbplz566, LUE, Sitting Skwfjvrxc66, R (more content not included)...NormalUH TouchworksTobacco Screening.on 95-99-6907Gemt risk assessmenta) No falls within the last yearCuyuna [facility]-[place] [address] DO Work Phone: Tobacco use status [facility]b) NoMP-[facility] [place] [address] DO Work Phone: CREATININEon 29-71-9775Hrilnkjled [Mass/Vol]0.91 mg/dL Normal0.50 - 1.30[facility] for RehabilitationComment on above:Performed By: #### CREAT #### [address] [id number]-MODRIRZ AM.>60Normal>60[facility] Comment on above:Result Comment: CALCULATIONS OF ESTIMATED GFR ARE PERFORMED USING THE MDRD STUDY EQUATION FOR THE IDMS-TRACEABLE CREATININE METHODS. CLIN CHEM 2007;53:766-72Performed By: #### CREAT #### [address] [id number]-LKK AM.>60Normal>60[facility] Comment on above:Performed By: #### CREAT #### [address] [id number] PANELon 51-43-5843Cgtcl gap [Moles/Vol]12 mmol/L Smhzuc82 - 20[facility] for RehabilitationComment on above:Performed By: #### ELECT #### [address] [id number] [Moles/Vol]100 mmol/LDnzand81 - 107[facility] for RehabilitationComment on above:Performed By: #### ELECT #### [address] [id number] (Bld) [Moles/Vol]31 mmol/IIldxtj04 - 32[facility] for RehabilitationComment on above:Performed By: #### ELECT #### [address] [id number] [Moles/Vol]3.9 mmol/LNormal3.5 - 5.3[facility] Rehabilitation CenterComment on above:Performed By: #### ELECT #### [address] [id number] [Moles/Vol]139 mmol/EJiqtof478 - 145[facility] for RehabilitationComment on above:Performed By: #### ELECT #### [address] [id number] NITROGENon 31-30-0905Zvfz nitrogen [Mass/Vol]19 mg/dL Normal6 - 23[facility] RehabilitationComment on above:Performed By: #### UREA #### [address] [id number] Vital Signs Date TimeVital SignValuePerforming BagmexfjvPwabrxgu35-26-1453 12:51-0400Body nxjzas450.88 cmKaren Hemmer TERMINATION CLERK-C Work Phone: [phone] [place], [place] 2166710-03-2025 12:51-0400 Body mass index (BMI) [Ratio]26.4 kg/w8Lnszp Hemmer TERMINATION CLERK-C Work Phone: [phone] [place], [place] 2166710-03-2025 12:51-0400 Body ehgqasmscag82.8 [degF]Linda Hemmer TERMINATION CLERK-C Work Phone: [phone] [place], [place] 2166710-03-2025 12:51-0400 Body viosvq05.45 kgKaren Hemmer TERMINATION CLERK-C Work Phone: [phone] [place], [place] 2166710-03-2025 12:51-0400 Diastolic blood retwfgov24 mm[Hg]Linda Hemmer TERMINATION CLERK-C Work Phone: 1(226)[address] [place], [place] 2166710-03-2025 12:51-0400 Heart rate65 /minKaren Hemmer TERMINATION CLERK-C Work Phone: 1(162)[address] [place], [place] 2166710-03-2025 12:51-0400 Respiratory rate16 /minKaren Hemmer TERMINATION CLERK-C Work Phone: 1(078)[address] [place], [place] 2166710-03-2025 12:51-0400 SaO2% (BldA) [Mass fraction]99 %Linda Hemmer TERMINATION CLERK-C Work Phone: 1(303)[address] [place], [place] 2166710-03-2025 12:51-0400 Systolic blood rnpydotx610 mm[Hg]Linda Hemmer TERMINATION CLERK-C Work Phone: 1(797)[address] [place], [place] 2166709-19-2025 09:38-0400 Body wyrykc425.88 cmNjen Hemmer TERMINATION CLERK-C Work Phone: 1(557)[address] [place], [place] 2166709-19-2025 09:38-0400 Body mass index (BMI) [Ratio]26 kg/r7Jtqjy Hemmer TERMINATION CLERK-C Work Phone: 1(071)[address] [place], [place] 2166709-19-2025 09:38-0400 Body tthbjseioaa59.2 [degF]Linda Hemmer TERMINATION CLERK-C Work Phone: 1(697)[address] [place], [place] 2166709-19-2025 09:38-0400 Body oqigvg56.08 kgLinda Hemmer TERMINATION CLERK-C Work Phone: 1(863)[address] [place], [place] 2166709-19-2025 09:38-0400 Diastolic blood omawglwr51 mm[Hg]Linda Hemmer TERMINATION CLERK-C Work Phone: 1(316)[address] [place], [place] 2166709-19-2025 09:38-0400 Heart rate66 /minKaren Hemmer TERMINATION CLERK-C Work Phone: 1(094)[address] [place], [place] 2166709-19-2025 09:38-0400 Respiratory rate16 /minKaren Hemmer TERMINATION CLERK-C Work Phone: 1(424)[address] [place], [place] 2166709-19-2025 09:38-0400 SaO2% (BldA) [Mass fraction]100 %Linda Hemmer TERMINATION CLERK-C Work Phone: 1(276)[address]09-19-2025 09:38-0400 Systolic blood mm[Hg]Linda Hemmer TERMINATION CLERK-C Work Phone: 1(427)[address] [place], [place] 2166708-11-2025 14:32-0400 Body exoxfv779.9 cmAarelis Tuttle MD Work Phone: [facility]08-11-2025 14:32-0400Body mass index (BMI) [Ratio]26.49 kg/d0DmmjwBill Tuttle MD Work Phone: [facility]08-11-2025 14:32-0400Body mpfcod19.6 kgBill Tuttle MD Work Phone: [facility]08-11-2025 14:32-0400Diastolic blood rjvevevh75 mm[Hg]Bill Tuttle MD Work Phone: [facility]08-11-2025 14:32-0400Heart rate76 /min Bill Tuttle MD Work Phone: [facility]08-11-2025 14:32-0400Systolic blood ejgaytoq777 mm[Hg]Bill Tuttle MD Work Phone: [facility]07-11-2025 14:53-0400Body vlsieb130.88 cmNjen Hemmer TERMINATION CLERK-C Work Phone: 1(365)[address]07-11-2025 14:53-0400 Body mass index (BMI) [Ratio]26.9 kg/k1Wwuhd Hemmer TERMINATION CLERK-C Work Phone: 1(161)[address]07-11-2025 14:53-0400 Body riesgnfckhe73.7 [degF]Linda Hemmer TERMINATION CLERK-C Work Phone: 1(414)[address]07-11-2025 14:53-0400 Body kaocum77.26 kgNjen Hemmer TERMINATION CLERK-C Work Phone: 1(515)976-[address] [place], [place] 0688007-11-2025 14:53-0400 Diastolic blood mm[Hg]Linda Hemmer TERMINATION CLERK-C Work Phone: 1(653)[address]07-11-2025 14:53-0400 Heart rate65 /minKaren Hemmer TERMINATION CLERK-C Work Phone: 1(499)[address]07-11-2025 14:53-0400 Respiratory rate18 /minKaren Hemmer TERMINATION CLERK-C Work Phone: 1(536)[address]07-11-2025 14:53-0400 SaO2% (BldA) [Mass fraction]98 %Linda Hemmer TERMINATION CLERK-C Work Phone: [facility]07-11-2025 14:53-0400 Systolic blood veaieguc414 mm[Hg]Linda Hemmer TERMINATION CLERK-C Work Phone: [facility]07-08-2025 09:26-0400 Body dgwhib384.9 cmNjen Hemmer PA Work Phone: 1(164)087-[address] [place], [place] [address]Uklqpfasmc39-90-8764 09:26-0400Body mass index (BMI) [Ratio]27.04 kg/x7Gvpqa Hemmer PA Work Phone: 1(953)086-[address] [place], [place] [address]Hrfvtbbmxo12-42-0795 09:26-0400Body nubcqi40.45 kgNjen Hemmer PA Work Phone: [facility] InstituteZbpgvcfkug11-46-2895 09:26-0400Diastolic blood ncscowwk19 mm[Hg]Linda Hemmer PA Work Phone: [facility] InstituteWmqvixhfyf33-04-1601 09:26-0400Heart rate72 /min Linda Hemmer PA Work Phone: [facility] InstituteVahfkbruqn83-70-9808 09:26-0400Respiratory rate16 /minNjen Hemmer PA Work Phone: [facility] InstituteTgeqcqjiyo29-43-3060 09:26-8299VoM3% (BldA) [Mass fraction]98 %Linda Hemmer PA Work Phone: [facility] InstituteHrzblobloy67-96-3074 09:26-0400Systolic blood qucqwlwo847 mm[Hg]Linda Hemmer PA Work Phone: [facility] InstituteQfmxpgzokk42-99-3733 09:35-0400Body rucdtb065.88 [facility]06-28-2025 09:35-0400Body mass index (BMI) [Ratio]27.3 kg/b2WfrzgxymhBucyrus Community Hospital06-28-2025 09:35-0400Body bqdqvhibzym79.7 [degF][facility]06-28-2025 09:35-0400Body idkflz72.28 [facility]06-28-2025 09:35-0400Diastolic blood lwczedex46 mm[Hg][facility]06-28-2025 09:35-0400 Heart rate73 /[facility]06-28-2025 09:35-0400 Respiratory rate18 /[facility]06-28-2025 09:35-0400 SaO2% (BldA) [Mass fraction]97 %[facility]06-28-2025 09:35-0400Systolic blood bigyatas633 mm[Hg][facility] 02-10-2025 10:48-0400Diastolic blood mm[Hg][facility]06-19-2025 10:48-0400Heart rate77 /[facility] 02-10-2025 10:48-0400Respiratory rate18 /[facility] 02-10-2025 10:48-2182OuM9% (BldA) [Mass fraction]100 %[facility]06-19-2025 10:48-0400Systolic blood hkctgayk819 mm[Hg][facility]06-19-2025 09:16-0400Body yygzbu853.88 [facility]06-19-2025 09:16-0400Body labcob18.71 [facility]05-30-2025 15:04-0400Body xmsgty150.88 cmBu[facility]05-30-2025 15:04-0400Body mass index (BMI) [Ratio]27.9 kg/j1ExjdbxghiBucyrus Community Hospital05-30-2025 15:04-0400Body .2 [degF][facility]05-30-2025 15:04-0400Body lhvfah18.44 [facility]05-30-2025 15:04-0400Diastolic blood vazewugz98 mm[Hg] [facility]05-30-2025 15:04-0400Heart rate62 /[facility]05-30-2025 15:04-0400Respiratory rate18 /[facility]05-30-2025 15:04-8058QtS0% (BldA) [Mass fraction]98 % [facility]05-30-2025 15:04-0400Systolic blood eqytnajp394 mm[Hg][facility]04-17-2025 15:34-0400Body bwcuxc636.9 cm Eulalio Martinez DO Work Phone: [phone] InstituteOdysbpqzne27-10-6954 15:34-0400Body mass index (BMI) [Ratio]28.21 kg/a6PghohEulalio Martinez DO Work Phone: 1(211)5-[address] [place], [place] [address]Kxdjxdsyrd61-76-2712 15:34-0400Body esdghj30.35 kgEulalio Martinez DO Work Phone: 1(502)[address] [place], [place] 7804302-06-2025 15:52-0500Body qqbiez136.9 cmEulalio Martinez DO Work Phone: 1(923)[address] [place], [place] 7804302-06-2025 15:52-0500Body mass index (BMI) [Ratio]28.35 kg/m7JrwsqEulalio Martinez DO Work Phone: 1(020)[facility] [place], [place] [address]Fgrrgejjbi75-86-0515 15:52-0500Body temperature 97.39 [degF]Eulalio Martinez DO Work Phone: 1(783)[address] [place], [place] 7804302-06-2025 15:52-0500Body .8 kg Eulalio Martinez DO Work Phone: [facility] InstituteSeropsjokn35-71-1690 16:43-0500Body pkbugh283.9 cmStephen Ebbitt PA-C Work Phone: [facility]01-28-2025 16:43-0500Body mass index (BMI) [Ratio]27.81 kg/g9Clnupfz Ebbitt PA-C Work Phone: [facility]01-28-2025 16:43-0500Body teamvr54 kg Tony Ebbitt PA-C Work Phone: [facility]01-28-2025 16:43-0500Diastolic blood tekqlyjh56 mm[Hg]Tony Ebbitt PA-C Work Phone: [facility]01-28-2025 16:43-0500Systolic blood wnprdaas260 mm[Hg]Tony Frank PA-C Work Phone: [facility]01-22-2025 15:28-0500Body xysykq483.9 cmLinda Hemmer PA Work Phone: [facility] HospitalZufwbttqdr66-64-9485 15:28-0500Body mass index (BMI) [Ratio]28.4 kg/d0Fkmfu Hemmer PA Work Phone: [facility] HospitalYjnqnudkmi62-89-8143 15:28-0500Body temperature 97.7 [degF]Linda Hemmer PA Work Phone: [facility] HospitalLqgtrgnqyb77-20-2174 15:28-0500Body unsuko48.98 kgLinda Hemmer PA Work Phone: [facility] HospitalFshsqzzlml14-67-2825 15:28-0500Diastolic blood ipqlfmuz60 mm[Hg]Linda Hemmer PA Work Phone: [facility] HospitalZslnbjgddg76-57-6335 15:28-0500Heart rate64 /min Linda Hemmer PA Work Phone: [facility] HospitalUxsckxrxit72-93-1494 15:28-0500Respiratory rate16 /minNjen Hemmer PA Work Phone: noRank[facility] HospitalCuvglteqxg56-45-3024 15:28-6081CuX9% (BldA) [Mass fraction]98 %Linda Hemmer PA Work Phone: [facility] HospitalSpudkgrthb23-36-9520 15:28-0500Systolic blood agzvwndg756 mm[Hg]Linda Hemmer PA Work Phone: [facility] HospitalDyushfgetv48-55-6189 11:04-0500Body knufzc220.9 cmEulalio Martinez DO Work Phone: noRanken [facility] HospitalXmcthqpzoh67-71-3215 11:04-0500Body mass index (BMI) [Ratio]27.4 kg/x8HqtwsEulalio Martinez DO Work Phone: [facility] Nwvtilwizr81-04-7218 11:04-0500Body temperature 97.39 [degF]Eulalio Martinez DO Work Phone: 1(603)[address] [place], [place] 7804312-31-2024 11:04-0500Body xefjto66.63 kgEulalio Martinez DO Work Phone: 1(693)[address] [place], [place] 7804312-13-2024 15:24-0500Body jwnjel563.88 cmSedrick Ye MD Work Phone: [facility]12-13-2024 15:24-0500 Body .98 kgSedrick Ye MD Work Phone: [facility]12-03-2024 15:52-0500 Body fksnet424.9 cmEulalio Martinez DO Work Phone: 1(291)[address] [place], [place] 7804312-03-2024 15:52-0500Body mass index (BMI) [Ratio]27.4 kg/b1PlxpbEulalio Martinez DO Work Phone: 1(105)[facility] [place], [place] [address]Nqpiflbakc69-65-7427 15:52-0500Body ullojb04.63 kgEulalio Martinez DO Work Phone: 1(259)[address] [place], [place] 7804310-22-2024 15:49-0400Body xrkjze811.9 cmEulalio Martinez DO Work Phone: 1(904)[address] [place], [place] 7804310-22-2024 15:49-0400Body mass index (BMI) [Ratio]27.4 kg/x9CdjbgEulalio Martinez DO Work Phone: 1(626)[address] [place], [place] 7804310-22-2024 15:49-0400Body ntklur81.63 kgEulalio Martinez DO Work Phone: 1(212)[address] [place] [address]-18-2024 09:58-0400Body qagnmi860.9 Rama Haque MD Work Phone: [facility] InstituteYvblwbiexd63-96-9619 09:58-0400Body mass index (BMI) [Ratio]27.4 kg/p4LmdbpnGrace Haque MD Work Phone: [facility] InstituteCuuuarbtcg16-55-3069 09:58-0400Body jsjdoc98.63 kgGrace Haque MD Work Phone: [place] [address]Brbrujgmfu55-51-1919 16:21-0400Body ionjrh210.9 cmSedrick Lyons TERMINATION CLERK Work Phone: [facility] InstituteNxazcnssfr23-58-7028 16:21-0400Body mass index (BMI) [Ratio]27.4 kg/m2Sedrick Lyons TERMINATION CLERK Work Phone: [facility] InstituteCudhkqezjq53-66-8934 16:21-0400Body sggech34.63 kgSedrick Lyons TERMINATION CLERK Work Phone: [facility] InstituteSitxqukmfq02-89-5510 16:21-0400Diastolic blood irpeurbq94 mm[Hg]Sedrick Lyons TERMINATION CLERK Work Phone: [facility] InstituteJhxysbbltc56-49-0194 16:21-0400Heart rate67 /min Sedrick Lyons TERMINATION CLERK Work Phone: [facility] InstituteXfozdrfbof50-68-8838 16:21-5080SbV3% (BldA) [Mass fraction]98 %Sedrick Lyons TERMINATION CLERK Work Phone: [facility] InstituteZfszpnnxav98-54-9127 16:21-0400Systolic blood mm[Hg]Sedrick Lyons TERMINATION CLERK Work Phone: [facility] InstituteIbescfswgo54-23-9004 09:21-0400Body wlygkl870.9 Rama Haque MD Work Phone: [facility] InstituteRshzrblheu14-51-1153 09:21-0400Body mass index (BMI) [Ratio]27.12 kg/t4ZdpwpvGrace Haque MD Work Phone: [facility] InstituteDuxflrprmd57-95-8168 09:21-0400Body nyfdss48.72 kgGrace Haque MD Work Phone: [facility] InstituteVahmzytevl91-40-4694 09:21-0400Diastolic blood mfdjjhry15 mm[Hg]Grace Haque MD Work Phone: [facility] InstituteHqhzkyyngy17-22-3677 09:21-0400Systolic blood otjtpqju255 mm[Hg]Grace Haque MD Work Phone: [facility] InstituteYanjdihlkn26-59-7729 14:57-0400Body yaupiv937.88 cmMD Sedrick Ye Work Phone: 1(017)[address]08-30-2024 14:57-0400 Body mass index (BMI) [Ratio]26.7 kg/m2MD Sedrick Ye Work Phone: 1(319)682-[address] [place], [place] 0249308-30-2024 14:57-0400 Body ojuhidddcul89.3 [degF]MD Sedrick Ye Work Phone: 1(240)[address]08-30-2024 14:57-0400 Body .35 kgMD Sedrick Ye Work Phone: 1(171)[address]08-30-2024 14:57-0400 Diastolic blood hqoenewn96 mm[Hg]MD Sedrick Ye Work Phone: 1(414)[address]08-30-2024 14:57-0400 Heart rate62 /minMD Sedrick Ye Work Phone: 1(510)[address]08-30-2024 14:57-0400 Respiratory rate16 /minMD Sedrick Ye Work Phone: 1(255)[address]08-30-2024 14:57-0400 SaO2% (BldA) [Mass fraction]97 %MD Sedrick Ye Work Phone: 1(936)[address]08-30-2024 14:57-0400 Systolic blood mm[Hg]MD Sedrick Ye Work Phone: 1(833)560-[address] [place], [place] 0249306-07-2024 14:12-0400 Body jlwxci370.9 cmAbdul Watkizzyr Work Phone: [facility]06-07-2024 14:12-0400Body mass index (BMI) [Ratio]27.69 kg/o2Jvhjy Roger LYNCH Work Phone: [facility]06-07-2024 14:12-0400Body zxsbuu44.6 kgAbdul Watkizzyr Work Phone: [facility]06-07-2024 14:12-0400Diastolic blood llezpgav01 mm[Hg]Bill Tuttle MD Work Phone: [facility]06-07-2024 14:12-0400Heart rate66 /min Bill Tuttle MD Work Phone: [facility]06-07-2024 14:12-3761UuR6% (BldA) [Mass fraction]97 %Bill Tuttle MD Work Phone: [facility]06-07-2024 14:12-0400Systolic blood xfzufcrv512 mm[Hg]Bill Tuttle MD Work Phone: [facility]05-31-2024 14:01-0400Body rchtij652.88 cmMD Sedrick Ye Work Phone: 1(668)[address]05-31-2024 14:01-0400 Body mass index (BMI) [Ratio]27.5 kg/m2MD Sedrick Ye Work Phone: 1(612)[address]05-31-2024 14:01-0400 Body kkyflxsqesi89.4 [degF]MD Sedrick Ye Work Phone: 1(372)[address]05-31-2024 14:01-0400 Body .07 kgMD Sedrick Ye Work Phone: 1(235)[address]05-31-2024 14:01-0400 Diastolic blood tvmalqqg08 mm[Hg]MD Sedrick Ye Work Phone: 1(327)[address]05-31-2024 14:01-0400 Heart rate71 /minMD Sedrick Ye Work Phone: 1(999)[address]05-31-2024 14:01-0400 Respiratory rate20 /minMD Sedrick Ye Work Phone: 1(368)[address]05-31-2024 14:01-0400 SaO2% (BldA) [Mass fraction]99 %MD Sedrick Ye Work Phone: 1(115)[address]05-31-2024 14:01-0400 Systolic blood mm[Hg]MD Sedrick Ye Work Phone: [facility]12-07-2023 13:23-0500 Body vohblm674.9 Deric Tuttle MD Work Phone: [facility]12-07-2023 13:23-0500Body hqlxyg45.91 kgBill Tuttle MD Work Phone: [facility]12-07-2023 13:23-0500Diastolic blood sxwodirh96 mm[Hg]Bill Tuttle MD Work Phone: [facility]12-07-2023 13:23-0500Heart rate71 /min Bill Tuttle MD Work Phone: [facility]12-07-2023 13:23-0500Systolic blood jwjpchud651 mm[Hg]Bill Tuttle MD Work Phone: [facility]05-03-2023 14:11-0400Body .9 Deric Tuttle MD Work Phone: [facility]05-03-2023 14:11-0400Body tnnhih04.72 kgBill Tuttle MD Work Phone: [facility]05-03-2023 14:11-0400Diastolic blood dkchoanc98 mm[Hg]Bill Tuttle MD Work Phone: [facility]05-03-2023 14:11-0400Systolic blood jwrtocne676 mm[Hg]Bill Tuttle MD Work Phone: [facility]02-23-2023 15:10-0500Body cnqgat293.9 Deric Tuttle MD Work Phone: [facility]02-23-2023 15:10-0500Body cxjhvu84.63 kgBill Tuttle MD Work Phone: [facility]02-23-2023 15:10-0500Diastolic blood kvppseak92 mm[Hg]Bill Tuttle MD Work Phone: [facility]02-23-2023 15:10-0500Heart rate75 /min Bill Tuttle MD Work Phone: [facility]02-23-2023 15:10-0793OjS7% (BldA) [Mass fraction]98 %Bill Tuttle MD Work Phone: [facility]02-23-2023 15:10-0500Systolic blood mm[Hg]Bill Tuttle MD Work Phone: [facility]01-20-2023 15:12-0500Body .9 cmAarelis Tuttle MD Work Phone: [facility]01-20-2023 15:12-0500Body jrylzz88.53 kgBill Tuttle MD Work Phone: [facility]01-20-2023 15:12-0500Diastolic blood yzftnrpg44 mm[Hg]Bill Tuttle MD Work Phone: [facility]01-20-2023 15:12-0500Heart rate79 /min Bill Tuttle MD Work Phone: [facility]01-20-2023 15:12-0701BaM3% (BldA) [Mass fraction]98 %Bill Tuttle MD Work Phone: [facility]01-20-2023 15:12-0500Systolic blood mm[Hg]Bill Tuttle MD Work Phone: [facility]12-08-2022 13:49-0500Diastolic blood bykeitmr46 mm[Hg]Hiren Sena MD Work Phone: [facility]12-08-2022 13:49-0500Heart rate75 /min Hiren Sena MD Work Phone: [facility]12-08-2022 13:49-8554UoH9% (BldA) [Mass fraction]97 %Hiren Sena MD Work Phone: [facility]12-08-2022 13:49-0500Systolic blood ejaswhwb377 mm[Hg]Hiren Sena MD Work Phone: [facility]09-16-2022 15:10-0400Body ddayif24.58 kgBill Tuttle MD Work Phone: [facility]09-16-2022 15:10-0400Diastolic blood pcslslto93 mm[Hg]Bill Tuttle MD Work Phone: [facility]09-16-2022 15:10-0400Heart rate72 /min Bill Tuttle MD Work Phone: [facility]09-16-2022 15:10-7181JiJ1% (BldA) [Mass fraction]98 %Bill Tuttle MD Work Phone: [facility]09-16-2022 15:10-0400Systolic blood bwdyvxwg278 mm[Hg]Bill Tuttle MD Work Phone: [facility]08-04-2022 14:44-0400Body .9 cmAarelis Tuttle MD Work Phone: [facility]08-04-2022 14:44-0400Body eddzci28.45 kgBill Tuttle MD Work Phone: [facility]08-04-2022 14:44-0400Diastolic blood nbrfxlti24 mm[Hg]Bill Tuttle MD Work Phone: [facility]08-04-2022 14:44-0400Heart rate70 /min Bill Tuttle MD Work Phone: [facility]08-04-2022 14:44-0400Respiratory rate 18 /minBill Tuttle MD Work Phone: [facility]08-04-2022 14:44-1320GiI9% (BldA) [Mass fraction]98 %Bill Tuttle MD Work Phone: [facility]08-04-2022 14:44-0400Systolic blood vmtcvyzd377 mm[Hg]Bill Tuttle MD Work Phone: [facility]07-29-2022 10:27-0400Body .9 cmPolina Rogers GAUGER CHIEF DELIVERY.[facility] Work Phone: [facility]07-29-2022 10:27-0400Body xzkoft34.72 kgBarbara Mccloud GAUGER CHIEF DELIVERY.[facility] Work Phone: [facility]07-29-2022 10:270400Diastolic blood ntnwdhob86 mm[Hg]Barbara Mccloud GAUGER CHIEF DELIVERY.[facility] Work Phone: [facility]07-29-2022 10:0400Heart rate56 /min Barbara Mccloud GAUGER CHIEF DELIVERY.[facility] Work Phone: [facility]07-29-2022 10:27-0400Systolic blood kyyrigea011 mm[Hg]Barbara Mccloud APRN.[facility] Work Phone: [facility]01-19-2022 14:04-0500Body wclwam856.88 cmKi E Ye Work Phone: 1(768) [phone]-Suajh [facility] DO Work Phone: 1(827) 544-980401-19-2022 14:04-0500Body mass index (BMI) [Ratio] 27.53 kg/m2Kitrish E Ye Work Phone: 1(371) [phone]-Ytlsm [facility] DO Work Phone: 1(735) 895-393101-19-2022 14:04-0500Body surface area Derived from formula2.14 m2Kim E Ye Work Phone: 1(357) [phone]-Isabo [facility] [address] DO Work Phone: 1(759) 325-574601-19-2022 14:04-0500Body ezcxxq34.08 kgKim E Ye Work Phone: 1(462) [phone]-Kknva [facility] [address] DO Work Phone: 1(357) 340-117101-19-2022 14:04-0500Diastolic blood antpwdve24 mm[Hg] Sedrick Ye Work Phone: 1(163) [phone]-Lwwhs [facility] DO Work Phone: 1(174) 813-502501-19-2022 14:04-0500Heart rate95 /minKitrish Ye Work Phone: 1(521) [phone]-Qwaut [facility] [address] DO Work Phone: 1(677) 102-550201-19-2022 14:04-0500Systolic blood wvfbicez160 mm[Hg] Sedrick Ye Work Phone: 1(481) [phone]-Zgvzz [facility] DO Work Phone: 1(526) 273-707911-02-2021 13:28-0400Diastolic blood xaaurxoy94 mm[Hg] Sedrick Ye Work Phone: 1(966) [phone]-Leopk [facility] DO Work Phone: 1(637) 605-164711-02-2021 13:28-0400Systolic blood qkzzmwdo939 mm[Hg] Sedrick Ye Work Phone: 1(986) [phone]-Ypeif [facility] DO Work Phone: 1(525) 455-846511-02-2021 13:06-0400Body jynpng451.88 cmKim Sarabjit Ye Work Phone: 1(216) [phone]-Yzwba [facility] DO Work Phone: 1(755) 554-867311-02-2021 13:06-0400Body mass index (BMI) [Ratio] 27.94 kg/m2Kitrish Ye Work Phone: 1(450) [phone]-Rnkeg [facility] DO Work Phone: 1(670) 721-590611-02-2021 13:06-0400Body surface area Derived from formula2.16 m2Kitrish Ye Work Phone: 1(582) [phone]-Zxoxa [facility] DO Work Phone: 1(862) 713-156111-02-2021 13:06-0400Body .44 kgKim Sarabjit Ye Work Phone: 1(407) [phone]-Tfdeh [facility] DO Work Phone: 1(695) 660-430011-02-2021 13:06-0400Diastolic blood cmgokaag800 mm[Hg]Sedrick Ye Work Phone: [phone]-Bthok [facility] DO Work Phone: 1(938) 839-327511-02-2021 13:06-0400Heart rate92 /minKitrish Ye Work Phone: mp384-3141ZY-Lgnam [facility] DO Work Phone: 1(449) 659-450611-02-2021 13:06-0400Systolic blood ffgzvszo902 mm[Hg] Sedrick Ye Work Phone: [phone]-Ugibh [facility] DO Work Phone: Encounters Encounter DateEncounter TypeCare ProviderFacilityStart: 06-24-2025 End: 08-43-9296Eymexydkw Result EncounterGeneric External Data ProviderNOMS External Department UnsolicitedStart: 06-24-2025 End: 10-08-3824Anuwyjpdu Result EncounterGeneric External Data ProviderNOMS External Department UnsolicitedStart: 06-13-2025 End: 79-03-3803bsngktwuwuVHLMV R WATTARFacility:[facility]: 06-08-2025 End: 37-19-1284Ffvscrzcy Result EncounterGeneric External Data ProviderNOMS External Department UnsolicitedStart: 06-08-2025 End: 86-11-7051Ycqwaeoxf Result EncounterGeneric External Data ProviderNOMS External Department UnsolicitedStart: 88-49-3575Yaknbmgxuq RecurringChristian Carlos II [facility] Work Phone: Start: 05-27-2025 End: 47-18-2614syfihnlmgwYaaluRed CHEUNG Work Phone: [facility] Work Phone: Start: 05-27-2025 End: 02-39-3189Kwxbqir encounter procedureChristian Carlos II [facility] Work Phone: Start: 05-26-2025 End: 52-56-5164Xocmyzwfn Result EncounterGeneric External Data ProviderNOMS External Department UnsolicitedStart: 05-26-2025 End: 25-67-7079Gtnscezng Result EncounterGeneric External Data ProviderNOMS External Department UnsolicitedStart: 05-19-2025 End: 23-61-6198Nurrcsvjm Result EncounterGeneric External Data ProviderNOMS External Department UnsolicitedStart: 05-19-2025 End: 29-93-9121Qyxwbusfq Result EncounterGeneric External Data ProviderNOMS External Department UnsolicitedStart: 05-16-2025 End: 89-13-3644Uvgfzxnor Result EncounterGeneric External Data ProviderNOMS External Department UnsolicitedStart: 05-16-2025 End: 19-35-4075Pmnvrhmju Result EncounterGeneric External Data ProviderNOMS External Department UnsolicitedStart: 50-84-4641Goabfpcvcc RecurringChristian Carlos II [facility] Work Phone: Start: 55-78-7726Bcb-patient / Non-visitChristian Carlos II [facility] Work Phone: Start: 05-13-2025 End: 02-49-6001xynbukmpinTgqwg [facility] Work Phone: [facility] Work Phone: Start: 05-13-2025 End: 73-61-8837Utoyqpq encounter procedureGracie Daily NP-C-[facility] [place] [facility] Work Phone: Start: 05-12-2025 End: 57-61-2339Awlfsecd Result EncounterChristian Carlos DO Work Phone: noms External Department UnsolicitedStart: 05-12-2025 End: 03-12-6808Copednxz Result EncounterChristian Carlos DO Work Phone: noms External Department UnsolicitedStart: 05-09-2025 End: 66-89-8852Srdmmbeda Result EncounterGeneric External Data ProviderNOMS External Department UnsolicitedStart: 05-09-2025 End: 15-94-4248Jiuqhktjp Result EncounterGeneric External Data ProviderNONV External Department UnsolicitedStart: 04-04-2025 End: 46-57-5730Hvxcubf encounter procedureIta Tuttle MD Work Phone: CardiologyComment on above:PAF (paroxysmal atrial fibrillation) (HCC) (Primary Dx); Atrial fibrillation, persistent (HCC); Benign essential HTN; Hypertension, unspecified type; Tachycardia induced cardiomyopathy (HCC)Start: 04-04-2025 End: 58-03-0843gybharsurgTSXPU R WATTARFacility:[facility] Hospitaltart: 03-17-2025 End: 41-22-0571Pkdscghnw encounterLinda PIEDRA Work Phone: noms CI FMStart: 29-73-6783Ikgmucasdb RecurringChristian [facility]Kay[facility] Work Phone: Start: 03-04-2025 End: 79-08-2754jtdlhogddmVfogi Hemmer TERMINATION CLERK-C Work Phone: [facility] Work Phone: Start: 03-04-2025 End: 62-97-9670Zqvqgex encounter procedureChristian Carlos [facility] Work Phone: Start: 03-01-2025 End: 41-45-7590Nqzwil flowsKirt PIEDRA Work Phone: noMS CI FMStart: 03-01-2025 End: 46-68-0423Mjjmey flowsKirt PIEDRA Work Phone: noMS CI FMStart: 03-01-2025 End: 65-79-6843Fxpngyi encounter statusLinda PIEDRA Work Phone: no[facility] Work Phone: Start: 03-01-2025 End: 15-51-7163Zhsawoxm preventive med est patient 65yrs& olderLinda PIEDRA [...] for malignant neoplasm of prostateStart: 03-01-2025 End: 25-62-9042xemlbxsvvhFLEHPRed Rivera AvailableStart: 02-19-2025 End: 84-80-0255byhighewffUSUSelect Medical Specialty [facility] Work Phone: Start: 02-19-2025 End: 86-29-7854Qiqfguk encounter procedureHannah Quarles GAUGER CHIEF DELIVERYINTERFAITH [facility] [place] Work Phone: Start: 02-10-2025 End: 63-09-3972Nblxgzfm Result EncounterChristian Carlos DO Work Phone: noms External Department UnsolicitedStart: 02-10-2025 End: 35-62-6769Gsdpvcnk Result EncounterChristian Carlos DO Work Phone: noms External Department UnsolicitedStart: 02-10-2025 End: 55-67-8546Rxatibuvv to same day surgery centerChristian Carlos II DO-CT Scan Main [place] Work Phone: Start: 02-10-2025 End: 50-41-8607utlslbwzgfLydmi HemmerFacility:[facility] Start: 01-21-2025 End: 28-37-4532zrybsleomfQIHSelect Medical Specialty Hospital - [place] Work Phone: Start: 01-21-2025 End: 84-52-6436Gttzpix encounter procedureThe [facility] FoundationCan[facility] Work Phone: Start: 01-13-2025 End: 59-29-3766Cngbodsl Result EncounterTimmoise Carlos DO Work Phone: noms External Department UnsolicitedStart: 01-13-2025 End: 99-04-3189Iypthkac Result EncounterTimmoise Carlos DO Work Phone: noms External Department UnsolicitedStart: 01-01-2025 End: 72-35-8791TjddbyStelb R Wattar MD Work Phone: CardiologyComment on above:Refill RequestStart: 12-09-2024 End: 40-71-5385Nbmaoqu encounter procedureEulalio Martinez DO Work Phone: NOMS NB ORTHOComment on above:S/P right knee arthroscopy (Primary Dx)Start: 12-09-2024 End: 02-87-9328ydypfvxekqGDUZE A BROWNNot AvailableStart: 12-09-2024 End: 69-62-7690Mcbaru flowsNoelle Martinez DO Work Phone: NOMS ORTHOStart: 12-09-2024 End: 39-00-8993Ckqtjz Matt Martinez DO Work Phone: NOMS ORTHOStart: 11-30-2024 End: 27-71-5400xfbuhffcamUye E Knight MD Work Phone: [facility] Work Phone: Start: 11-30-2024 End: 53-68-9136Egwcgxwv Ezequiel Ye MD Work Phone: [facility] [address] Work Phone: start: 82-89-8638Dzhibtralq Joanne Ye MD Work Phone: [facility] Work Phone: Start: 11-09-2024 End: 97-52-1025flvlgfdwhpECRWL M HEMMERNot AvailableStart: 10-28-2024 End: 42-37-8925cnlmyhrgvoIXQZB A BROWNNot AvailableStart: 09-30-2024 End: 67-10-3894Deoalns encounter procedureEulalio Martinez DO Work Phone: NOMS NB ORTHOComment on above:Left hand pain (Primary Dx); S/P right knee arthroscopy; Right knee pain, unspecified chronicityStart: 09-30-2024 End: 68-14-9039qksjfcqqmyQDNUM A BROWNNot AvailableStart: 09-30-2024 End: 14-12-4611yzhyvnfzfiPUCAK A BROWNNot AvailableStart: 09-27-2024 End: 55-13-9156YzacizPufpu R Wattar MD Work Phone: CardiologyComment on above:Refill RequestStart: 09-21-2024 End: 32-61-3231hsofkfbtgdYRSQH R WATTARFacility:[facility] HospitalStart: 09-21-2024 End: 00-63-1776Kydynoi encounter procedureSisma Armstrong PA-C Work Phone: CardiologyComment on above:Primary hypertension (Primary Dx); PAF (paroxysmal atrial fibrillation) ([facility]); Coronary artery calcificationStart: 09-15-2024 End: 52-18-8472Zvhdyu outpatient visit 15 minutesLinda PIEDRA Work Phone: NOMS CI FMComment on above:Acute non-recurrent maxillary sinusitis (Primary Dx)Start: 09-15-2024 End: 16-63-3220jifhncqzoiIOEPJRed Rivera AvailableStart: 08-24-2024 End: 92-01-7506Hvswmo flowsheetEulalio Jojo Mahamed DO Work Phone: [phone] ORTHOStart: 08-24-2024 End: 25-10-4660Qylnci flowsheetEulalio Martinez DO Work Phone: [phone] ORTHOStart: 08-24-2024 End: 48-07-1659Svlfrqh encounter procedureEulalio Martinez DO Work Phone: [phone] NB ORTHOComment on above:S/P right knee arthroscopy (Primary Dx)Start: 08-24-2024 End: 45-90-0852fzxmgdpccgBORKI A BROWNNot AvailableStart: 07-30-2024 End: 10-32-8167xfhnrcxlmnKJEIT A BROWNNot AvailableStart: 07-29-2024 End: 79-40-4914ulembndsmdVEWUI A BROWNNot AvailableStart: 07-28-2024 End: 00-80-3079qymyfzynlcQPPHN A BROWNNot AvailableStart: 07-28-2024 End: 17-25-2061Tjpvkr Mitchmoise Guillermo Carlos DO Work Phone: NOVD External Department UnsolicitedStart: 07-27-2024 End: 26-69-8304Facfxzv encounter procedureEulalio Jojo Mahamed DO Work Phone: NOMS NB ORTHOComment on above:Pre-op testingStart: 07-27-2024 End: 22-38-8242Ujtpgyp encounter statusEulalio Jojo Mahamed DO Work Phone: [facility] Work Phone: Start: 07-27-2024 End: 97-66-2038ulybehtvkzGWYVL Jojo BROWNNot AvailableStart: 07-27-2024 End: 65-83-1945Buyuzm flowsheetEulalio Martinez DO Work Phone: NOMS ORTHOStart: 07-27-2024 End: 21-31-2925Uvzlzg flowshectorEulalio Jojo Mahamed DO Work Phone: NOMS ORTHOStart: 07-24-2024 End: 25-06-2893dtflqjzqwfJPU STAFFFacility:[facility] Start: 06-29-2024 End: 84-23-1427Rlvsfrmdv Result EncounterLinda PIEDRA Work Phone: NOMS External Department UnsolicitedStart: 06-29-2024 End: 06-29-7260Ygczbeigl Result EncounterLinda PIEDRA Work Phone: NOMS External Department UnsolicitedStart: 06-29-2024 End: 14-05-1355OejpfmVsxohDoris Tuttle MD Work Phone: CardiologyComment on above:Refill RequestStart: 06-29-2024 End: 46-22-6045Vtiecykfl encounterLinda PIEDRA Work Phone: NOMS CI FMStart: 06-25-2024 End: 61-90-3831Sforaevnx encounterKayla Rose WIRE BRUSHER Work Phone: NOMS CI FMStart: 06-15-2024 End: 83-25-3402Odqpztq encounter Narcisa Martinez DO Work Phone: NOMS NB ORTHOComment on above:Tear of medial meniscus of right knee, current, unspecified tear type, subsequent encounter (Primary Dx) Start: 06-15-2024 End: 58-07-1784ugnsbnsiiuKAFCR A BROWNNot AvailableStart: 06-15-2024 End: 37-92-3155Qlalmo flowsNoelle Uribe Mahamed DO Work Phone: NOMS ORTHOStart: 06-15-2024 End: 39-26-6552Dpgxfd flowsNoelle Martinez DO Work Phone: NOMS ORTHOStart: 06-11-2024 End: 70-01-6212Ireyqu follow up visit related to original Pari Bucio MD Work Phone: NOMS ST GENSComment on above:Screening for malignant neoplasm of colon (Primary Dx)Start: 06-11-2024 End: 01-26-1033mhaupjxytjMWSRVN VARGAS VNot AvailableStart: 06-10-2024 End: 08-70-8691Oudkro outpatient visit 25 minutesSedrick Lyons TERMINATION CLERK Work Phone: NOMS CI FMComment on above:Strain of thoracic back region (Primary Dx); Muscle spasmStart: 06-10-2024 End: 23-86-0451jkdohmlcjwSAY C MILLERNot AvailableStart: 06-10-2024 End: 44-70-8670Anyffl Dayan Lyons TERMINATION CLERK Work Phone: NOMS CI FMStart: 06-10-2024 End: 70-59-6603Cuevcv krishnaSedrick Ethan Lyons TERMINATION CLERK Work Phone: noms CI FMStart: 05-21-2024 End: 03-23-6240Jglkkt outpatient new 45 minutesGrace Bucio MD Work Phone: noms ST GENSComment on above:History of colon polyps (Primary Dx); Screening for malignant neoplasm of colonStart: 05-21-2024 End: 45-67-1484celddofmryJDMNER VARGAS VNot AvailableStart: 04-23-2024 End: 71-05-6290ulqvubqxnzFI Sedrick Whipple Ye Work Phone: [facility] Work Phone: Start: 04-23-2024 End: 05-74-6199Uenpoas encounter procedure Sedrick Cassi Work Phone: [facility] Work Phone: Start: 04-23-2024 End: 04-41-2381Uxoalxgs Result EncounterIrene Solares TERMINATION CLERK Work Phone: noms External Department UnsolicitedStart: 04-23-2024 End: 79-73-7890Rzkihjwy Result EncounterIrene Solares TERMINATION CLERK Work Phone: noms External Department UnsolicitedStart: 04-23-2024 Registered RecurringMD Sedrick Ye Work Phone: [facility] [place] [facility] Work Phone: Start: 04-20-2024 End: 76-84-1833Ckbdhxut Result EncounterChristian Carlos DO Work Phone: noms External Department UnsolicitedStart: 04-20-2024 End: 52-88-1638Mxvimzaf Result EncounterChristian Carlos DO Work Phone: noms External Department UnsolicitedStart: 02-29-2024 ambulatoryIta Tuttle MD Work Phone: CardiologyStart: 30-83-0001Vwtiaik encounter procedure Ita Tuttle MD Work Phone: CardiologyComment on above:FatigueStart: 02-12-2024 ambulatoryIta Tuttle MD Work Phone: CardiologyStart: 48-41-7523Mmoqkcd encounter procedure Ita Tuttle MD Work Phone: CardiologyComment on above:VitaminsStart: 01-30-2024 End: 20-73-1501Zsxtzho encounter procedureIta Tuttle MD Work Phone: CardiologyComment on above:Paroxysmal atrial fibrillation (HCC) (Primary Dx); Atrial fibrillation, persistent (HCC); Benign essential HTN; Hypertension, unspecified type; Prescription refill; Tachycardia induced cardiomyopathy (HCC); Aortic root dilatation (HCC)Start: 01-23-2024 End: 66-27-6292zhisfrwcwgGY Sedrick Ye Work Phone: [facility] Work Phone: Start: 01-23-2024 End: 92-03-8710Yfbdcpe encounter procedureMD Sedrick Ye Work Phone: [facility] Work Phone: Start: 11-82-3884Rnxpkpqyqg RecurringMD Sedrick Ye Work Phone: [facility] Work Phone: Start: 37-20-8865PxffxsMiwgr R Wattar MD Work Phone: CardiologyComment on above:Refill RequestStart: 80-56-7332Unbrfpyzq encounterIta Tuttle MD Work Phone: CardiologyStart: 07-31-2023 End: 91-79-0918Mjhvhbm encounter procedureIta Tuttle MD Work Phone: CardiologyComment on above:Hypertension, unspecified type (Primary Dx); Aortic root dilatation (HCC)Start: 06-02-2023 End: 87-54-7146magxqxkchjRlzgx M. LueFacility:EU NorwalkStart: 04-14-2023 End: 26-20-1309dfozhxffgeTrzfs M. LueFacility:CD:[id number]: 04-09-2023 End: 51-02-7635mqcvfbcllpOZE KNIGHTFacility:BAYLStart: 17-66-4747DhqvpcXrfuar Godoy GAUGER CHIEF DELIVERY.PANEL GLUER, DNP Work Phone: CardiologyComment on above:Refill RequestStart: 35-50-6787efryzcknozMkcodAlvaro Tuttle MD Work Phone: CardiologyComment on above:Eliquis and Aspirin questionStart: 01-21-2023 End: 91-71-7678ubdaemvnfxEWLZZ D HIGHLANDERFacility:J3Gxvft: 12-27-2022 End: 46-15-5032ikxeciotksKE SEDRICK YE .Facility:X8Mjglp: 12-25-2022 End: 53-96-2156Xkjevdk encounter procedureIta Tuttle MD Work Phone: CardiologyComment on above:Hypertension, unspecified type (Primary Dx)Start: 12-24-2022 End: 44-29-5360sljhdpltflBXGHD D CHILLICOTHE HOSPITALANDERFacility:S5Krzgv: 11-16-2022 End: 62-31-8411aszfvtbzfxLKVNSGVR EBERLYFacility:H3Ooevx: 90-09-5462Bddawvucg encounterHirne Sena MD Work Phone: CardiologyComment on above:Patient QuestionStart: 10-17-2022 End: 31-31-5469vgdlwylbpbFPSVY R WATTARFacility:[facility] HospitalStart: 10-17-2022 End: 89-18-5529Uvaaezn encounter procedureIta Tuttle MD Work Phone: CardiologyComment on above:Hypertension, unspecified type (Primary Dx)Start: 05-46-6687drbhknksiyRshjpAlvaro Tuttle MD Work Phone: CardiologyComment on above:NifedipineRefill Request Start: 20-56-1056DmkcdrJgipve Godoy APRN.PANEL GLUER, DNP Work Phone: CardiologyComment on above:Refill RequestStart: 10-09-2022 End: 38-76-4403ethjjejbrrAD SEDRICK EY .Facility:R0Didbn: 74-75-5966Llombr Ita Tuttle MD Work Phone: CardiologyComment on above:Refill RequestStart: 09-13-2022 End: 08-77-4982Yanbutq encounter procedureIta Tuttle MD Work Phone: CardiologyComment on above:Hypertension, unspecified type (Primary Dx)Start: 74-77-2536Jlnilxmbl encounterIta Tuttle MD Work Phone: CardiologyComment on above:Patient UpdateResultsStart: 08-01-2022 End: 43-55-2009Chojjil encounter procedureHiren Sena MD Work Phone: CardiologyComment on above:Atrial fibrillation, persistent (HCC) (Primary Dx); Hypertension, unspecified type; DMITRY (obstructive sleep apnea); Benign essential HTN; S/P ablation of atrial fibrillation; Encounter for current long-term use of anticoagulantsStart: 27-01-4030Vvsqmhwfdd TTAdams Sena MD Work Phone: [facility] DepartmentStart: 55-98-4352Drnedwjxn PlanTvenecia Sena MD Work Phone: [facility] MAINStart: 10-97-0283jedmoqferx Hiren Sena MD Work Phone: CardiologyComment on above:portable EKG transmitter machineStart: 05-10-2022 End: 19-16-6780Tbwsrfp encounter procedureIta Tuttle MD Work Phone: CardiologyComment on above:Tachycardia induced cardiomyopathy (HCC) (Primary Dx)Start: 69-95-1603Chnporrmln Jonathan Sena MD Work Phone: [facility] DepartmentStart: 41-49-9898Rowitpuqwghulam Sena MD Work Phone: [facility] MAINStart: 14-80-5161Ndtxzfaapd Jonathan Sena MD Work Phone: [facility] DepartmentStart: 36-34-6631Dfcgfitiighulam Sena MD Work Phone: [facility] MAINStart: 37-37-0490fredlgerhe Bridget LyonPulmonary MedicineStart: 98-42-7449Xeumninaby Jonathan Sena MD Work Phone: [facility] DepartmentStart: 96-69-7272Dspsspzwughulam Sena MD Work Phone: [facility] MAINStart: 70-98-7209fwevhvmndu Barbara Mccloud APRN.CNP Work Phone: CardiologyComment on above:update on weaning off SotalolEKG transmission machineStart: 64-52-3728L-mail encounter from caregiver Barbara Toledohardt MERLY.PANEL GLUER Work Phone: [facility] MAINStart: 11-19-5551qyhlsvldwc Hiren Sena MD Work Phone: [facility]ENTERStart: 73-55-4625Orghga-up encounterHiren Sena MD Work Phone: CardiologyComment on above:Sotalol follow upStart: 03-28-2022 End: 22-88-5345Uscnsth encounter Junior Tuttle MD Work Phone: CardiologyComment on above:Atherosclerosis (Primary Dx); Ascending aorta dilatation (HCC); Tachycardia induced cardiomyopathy (HCC)Start: 00-05-1167koujhxskxkSzvtltikd Manuel [place] Work Phone: Pulmonary MedicineStart: 93-36-9056cftbskszrgXzjhui Engelhardt APRN.SADI Work Phone: CardiologyComment on above:Ct scan resultsecho results Start: 63-30-6863M-mail encounter from caregiverBarbara Mccloud APRN.SADI Work Phone: [facility] MAINStart: 03-22-2022 End: 33-76-7265Ncalpms encounter procedureNagimagda BautistaRogerslizbeth MORELAND.SADI Work Phone: CardiologyComment on above:Atrial fibrillation, persistent (HCC) (Primary Dx); Lung nodule; DMITRY (obstructive sleep apnea)Start: 03-22-2022 End: 43-22-7206Pehykvvbpp hospital visit by physicianApril Li (I-Stat) Work Phone: RadiologyComment on above:Persistent atrial fibrillation (HCC) [I48.19]Start: 95-11-5306Mvyzkxxzoy Jonathan Sena MD Work Phone: [facility] DepartmentStart: 70-48-2532Quhgcvcah Mercedes Sena MD Work Phone: [facility] MAINStart: 90-32-9599Dlqrhufcio Jonathan Sena MD Work Phone: [facility] DepartmentStart: 24-50-7590Zontsqppltino Sena MD Work Phone: [facility] MAINStart: 58-07-8081Ahohkbrbzx Jonathan Sena MD Work Phone: [facility] DepartmentStart: 86-03-9026Drwyjkohxghulam Sena MD Work Phone: [facility] MAINStart: 72-34-0933Gmqvbaerka Jonathan Sena MD Work Phone: [facility] DepartmentStart: 29-72-4814Yrvdyfbzz Mercedes Sena MD Work Phone: [phone] [facility] MAINStart: 25-53-5079Fusnegsesq Jonathan Sena MD Work Phone: [phone] DepartmentStart: 61-32-7421Vyyrkxqlvghulam Sena MD Work Phone: [phone] [facility] MAINStart: 03-86-4840Rnbjkckheu Jonathan Sena MD Work Phone: [phone] DepartmentStart: 70-23-9762Qdmbmwxsptino Sena MD Work Phone: [phone] [facility] MAINStart: 16-18-8878Thakiboiel Jonathan Sena MD Work Phone: [phone] DepartmentStart: 65-71-9366Pnbattjjctino Sena MD Work Phone: [phone] [facility] MAINStart: 24-69-6420Ninuvvvrbh Jonathan Sena MD Work Phone: [phone] DepartmentStart: 86-36-9946Cgavspoocghulam Sena MD Work Phone: [phone] [facility] MAINStart: 81-82-4204Uhseysvlea Jonathan Sena MD Work Phone: [phone] DepartmentStart: 47-43-8474Bqcdpjpfl Mercedes Sena MD Work Phone: [phone] [facility] MAINStart: 36-17-6227Ivppnzuwbx Jonathan Sena MD Work Phone: [phone] DepartmentStart: 28-25-1849Ehqjlvvraghulam Sena MD Work Phone: [phone] [facility] MAINStart: 13-75-1811Mzftqhfmce Jonathan Sena MD Work Phone: [facility] DepartmentStart: 67-69-2406Ccztjztrzamanda Sena MD Work Phone: [facility] MAINStart: 89-52-0791YU Get Medical AdviceIta Tuttle MD Work Phone: CardiologyComment on above:Mail order doesn t have prescriptionsStart: 76-53-7056Vtjdreqfmq Jonathan Sena MD Work Phone: [facility] DepartmentStart: 26-99-7712Xvwolbufgamanda Sena MD Work Phone: [facility] MAINStart: 40-47-3189GbzmvuJxijg R Wattar MD Work Phone: Internal MedicineComment on above:Refill RequestStart: 84-38-6406DyfdxwVxlphl J Dresing MD Work Phone: CardiologyComment on above:Refill RequestFurosemide needed before vacation tomorrowStart: 13-28-7628Datrbofoug Jonathan Sena MD Work Phone: [facility] DepartmentStart: 85-91-3017Dqidiwajbamanda Sena MD Work Phone: [facility] MAINStart: 36-73-5946Mkgrxb Only Foreigndiogo Martinez APRN.PANEL GLUER Work Phone: cardiologyComment on above:Persistent atrial fibrillation (HCC)Start: 09-90-0780Pzkxnvuidr Jonathan Sena MD Work Phone: [facility] DepartmentStart: 22-19-4952Vufytfnsdamanda Sena MD Work Phone: [facility] MAINStart: 54-23-9573zudtvyggdo Hiren Sena MD Work Phone: CardiologyComment on above:Resent FMLA paperworkStart: 42-67-7637fhtkoyhzvwSxfwwq J Dresing MD Work Phone: CardiologyComment on above:Return to work dateStart: 72-64-7872Duuddyvgi encounterHiren Sena MD Work Phone: CardiologyComment on above:Post Dc Program Call - Needs Attnchest discomfort after ablationStart: 20-45-4022evpjwgorflJcckqi J Dresing MD Work Phone: CardiologyComment on above:Transmitter (3 months) Start: 27-95-9405Yjgxejhbwc TTMTvenecia Sena MD Work Phone: [facility] DepartmentStart: 61-25-2422Lquyoeibx PlanTvenecia Sena MD Work Phone: [facility] MAINStart: 61-11-5836taxtpkfgvt Hiren Sena MD Work Phone: CardiologyComment on above:Patient Education (PVI) Start: 63-60-5983Yttmbhz encounter procedureKim E Ye Work Phone: [phone]-Hjrnx [facility] [address] DO Work Phone: Start: 06-19-1281Ntwpqrfpw encounterKim E Ye Work Phone: [phone]-Qkrvv [facility] [address] DO Work Phone: Start: 47-44-3781Yfkyfiz encounter procedureKim E Ye Work Phone: [phone]-Oiimu [facility] [address] DO Work Phone: Start: 17-94-9970Nyedn UpdateKim E Ye Work Phone: [phone]-Vtkcs [facility] [address] DO Work Phone: Start: 42-81-9872Ldqhfz outpatient visit 25 minutesKim E Ye Work Phone: [phone]-Mhqze [facility] [address] DO Work Phone: Procedures DateProcedureProcedure DetailPerforming ClinicianStart: 54-74-1099CXN CBC WITH AUTO DIFFGeneric External Data ProviderStart: 41-67-0793FGR LDHGeneric External Data ProviderStart: 91-77-9022VED CMP (CMP) (FOR REMOTE [facility] USE)Generic External Data ProviderStart: 99-64-6097LXX CBC WITH AUTO DIFFGeneric External Data ProviderStart: 55-56-8715UXT CBC WITH AUTO DIFFGeneric External Data Provider Start: 42-37-5729TDJ CBC WITH AUTO DIFFGeneric External Data ProviderStart: 73-25-1322Rpjcwtfg screenKaren HemmerComment on above:Result Comment: PERFORMED BY: [facility] [place] [address] PATHOLOGIST INDUSTRIAL RELATIONS SPECIALIST DANIELLE QUINONES M.D.Start: 26-16-8188Rsdpa of haptoglobin quantitativeTimmoise Carlos DO Work Phone: Start: 09-00-4147DV scan of spleenKaren Hemmer TERMINATION CLERK-C Work Phone: Start: 73-92-5565IFL SED RATEGeneric External Data ProviderStart: 68-02-1290Vvk routine ecg w/least 12 lds i&r onlyCcf Provider Start: 54-00-4514GOGGWERDG REQUEST FOR LAB CORPChristian Carlos DO Work Phone: Start: 58-14-6209UPPRNLLSUJN PROFILEChristian Carlos DO Work Phone: Start: 60-55-1630Myzgynewjnitt metabolic panelChristian Carlos DO Work Phone: Start: 17-26-0270Wsrqk immunofixationComment on above: No monoclonality detected.Start: 03-18-4022Ldaw marrow samplingStart: 01-13-2025 Comprehensive metabolic panelChristian Carlos DO Work Phone: Start: 61-01-8818DPEJFVDNMKLGZ NEOGENOMICChristian Carlos DO Work Phone: Start: 31-31-1104Cvlfcwpdtnljpv aspir&/inj major jt/bursa w/o usEulalio Martinez DO Work Phone: Start: 09-30-2024 End: 91-96-7747Dnsad hand minimum 3 viewsEulalio Martinez DO Work Phone: Start: 72-64-2169Frjwtzeb blood count with white cell differential, automatedTimmoise Carlos DO Work Phone: Start: 12-86-0382Fnknaudsuvake metabolic panelChristian Carlos DO Work Phone: Start: 69-46-8418SLROEILC STATUS REPORTTimmoise Carlos DO Work Phone: Start: 88-18-9376MK THORACIC SPINE 3VLinda Jansen PA Work Phone: Start: 20-03-4042DBYWEDX D 25 HYDROXY,TOT+D2+D3Mary García Solares TERMINATION CLERK Work Phone: Start: 21-75-1161Fxlllkwhfcpqp metabolic panelTimmoise Carlos DO Work Phone: Start: 20-69-2913Ima routine ecg w/least 12 lds i&r onlyCcf ProviderStart: 52-08-1934CUL screeningDR SEDRICK YE .Comment on above: Performed By: #### PSASC #### [facility] [address] [place] [address] Dr. Gautam VanStart: 26-35-5728Kiyja 1996 panel - Serum or PlasmaBill Tuttle MD Work Phone: Start: 76-87-5444Ueb routine ecg w/least 12 lds i&r onlyCcf ProviderStart: 17-79-2415EPKNYDMPMH TRANS TELE MEASUREThomas Guillermo Sena MD Work Phone: Start: 96-53-2013AMMMXLBDLJ TRANS TELE MEASUREThomas Guillermo Sena MD Work Phone: Start: 52-93-2421PWGCDEZHAL TRANS TELE MEASUREThomas Guillermo Sena MD Work Phone: [phone]: 04-54-4329ARBBCCKTDC TRANS TELE MEASUREThomas Guillermo Sena MD Work Phone: [phone]: 55-30-7816Lg heart contrast eval cardiac structure&morphNolan Juan GAUGER CHIEF DELIVERY.PANEL GLUER Work Phone: [phone]: 19-12-4598Xylaymufzt [Mass/volume] in Serum or PlasmaCcf ProviderStart: 26-07-0971HMIIVJJOBZ TRANS TELE MEASUREThomas Guillermo Sena MD Work Phone: [phone]: 44-21-8276HKXTKTCGGS TRANS TELE MEASUREThomas Guillermo Sena MD Work Phone: [phone]: 37-59-8886GUIHOVLWWF TRANS TELE MEASUREThomas Guillermo Sena MD Work Phone: [phone]: 76-26-5597DZHSVDLTXQ TRANS TELE MEASUREThomas Guillermo Sena MD Work Phone: [phone]: 64-86-3179XJCUITSVSV TRANS TELE MEASUREThomas Guillermo Sena MD Work Phone: [phone]: 40-53-5574BAHYHLREXO TRANS TELE MEASUREThomas Guillermo Sena MD Work Phone: [phone]: 48-83-2866HZXDEUIKBD TRANS TELE MEASUREThomas Guillermo Sena MD Work Phone: [phone]: 79-41-6695EDYRDNWAKD TRANS TELE MEASUREThomas Guillermo Sena MD Work Phone: [phone]: 08-59-6294NXYERXYLTE TRANS TELE MEASUREThomas Guillermo Sena MD Work Phone: [phone]: 09-18-3588INWSZFYTXG TRANS TELE MEASUREThomas Guillermo Sena MD Work Phone: [phone]: 75-91-0831PZCPWNXLHW TRANS TELE MEASUREThomas Guillermo Sena MD Work Phone: [phone]: 72-26-6220ZCOFNLYOJV TRANS TELE MEASUREThomas Guillermo Sena MD Work Phone: Start: 16-48-7701JCYCEOESRO TRANS TELE MEASUREThomas Guillermo Sena MD Work Phone: Start: 40-96-8303KLVWKMLSGV TRANS TELE MEASUREThomas Guillermo Sena MD Work Phone: Start: 83-69-3205SMHKMIOVXZ TRANS TELE MEASUREThomas Guillermo Sena MD Work Phone: Start: 92-02-5202KzvzdfsfuimtjxitZzuft: 10-02-2018 ColonoscopyChristian Carlos DO Work Phone: Total colonoscopySedrick Ye Work Phone: Comment on above:08/2009; Plan of Treatment DateCare ActivityDetailAuthorStart: 60-87-1946DSM Vaccine (1 - 1-dose 75+ series)RSV Vaccine (1 - 1-dose 75+ series)[facility]30 Prostate specific antigen measurementProstate Cancer Screening Discussion [facility]: 56-48-5338Oflvoiqrc for malignant neoplasm of colonNOMS HealthcareStart: 15-05-7092Zmtgdxja ScreeningDiabetes ScreeningUniversity Hospitals [facility] Start: 52-62-1828CLDQQAVO CANCER SCREENING DISCUSSIONPROSTATE CANCER SCREENING DISCUSSIONMedina Hospitalt[facility]: 42-24-6844Ewfhxhve specific antigen measurement Prostate Cancer Screening DiscussionMedina Hospitalt[facility]: 89-21-9007Rwaxp 1996 panel - Serum or PlasmaLipid ScreeningMedina Hospitalt[facility]: 71-60-7549Hrskd panelLipid ScreeningMed[facility]: 98-21-6008HSGEU SCREENLIPID SCREEN [facility]: 36-66-7749JEXXRFRY CANCER SCREENING DISCUSSIONPROSTATE CANCER SCREENING DISCUSSIONMed[facility]: 13-16-1447Rlgltkqq Screening Diabetes ScreeningMed[facility]: 91-22-0928ZPQKG SCREENLIPID SCREEN [facility]: 49-60-1658FMNMQGAR CANCER SCREENING DISCUSSIONPROSTATE CANCER SCREENING DISCUSSIONMed[facility] Hospital[facility]: 04-05-2026 End: 16-43-1061Ojqdtyh encounter ysrclxwos85/12/2026 8:00 AM EDT Office Visit Cardiology [address] [place] [address] [place] [address] [place] [address] yearly follow upCardiologyComment on above:yearly follow up Start: 07-08-2026Medicare Annual Wellness (AWV)Medicare Annual Wellness (AWV) [facility] HealthcareStart: 36-93-0854MCRUUBHQ SCREENDIABETES SCREENUniversity Hospitals Cleveland Medical Center Start: 76-47-8378Ojqxrlml ScreeningDiabetes ScreeningMed[facility] Hospitalt[facility]: 05-79-8275OKAMFIYH SCREENDIABETES SCREENMedina Hospitalt[facility]: 06-13-2025 End: 95-86-6754Cxvduuc encounter otqvvbtfn36/20/2025 10:30 AM EDT Office Visit Cardiology [address] [place], [place] [id number] PAF (paroxysmal atrial fibrillation) (HCC) [I48.0]CardiologyComment on above:PAF (paroxysmal atrial fibrillation) (HCC) [I48.0]Start: 41-41-2389NrkkonlxkUniversity Hospitals Conneaut Medical Centertart: 15-56-9685YtiuxrnrhUniversity Hospitals Conneaut Medical Centertart: 04-25-2025 Influenza vaccinationAL[facility] HealthcareStart: 04-04-2025 End: 02-90-9229Zvghzgl encounter imafwheux02/11/2025 2:30 PM EDT Office Visit Cardiology [address] [place] [address] [place] [address] [place] [address] Return in about 6 months (around 03/21/2025) for Please schedule appt with Dr. Tuttle in 6months.CardiologyComment on above:Return in about 6 months (around 03/21/2025) for Please schedule appt with Dr. Tuttle in 6 months.Start: 61-64-6260IKQJVSXA SCREENDIABETES SCREENMedina Hospitaltart: 03-01-2025 End: 07-57-8251Gglhdkh encounter procedureNOMS CI FMComment on above:Arrived Start: 69-58-0261PybquifetUniversity Hospitals Conneaut Medical Centertart: 02-08-2025 End: 28-83-7312Vpphlgt encounter ilveekojm38/17/2025 4:00 PM EDT Office Visit [facility] FM [address] [place] [address] Linda Jansen PA [address] [place] [address] [facility] CI FMStart: 12-09-2024 End: 30-55-2637Xgemhzd encounter uzgzbftzg51/17/2025 3:45 PM EDT Office Visit [facility] ORTHO [address] [place] [address] Eulalio Martinez, DO [address] [place] [address] ArrivedNOMS NB ORTHOComment on above:ArrivedStart: 12-03-2024 DIABETES SCREENDIABETES SCREENMed[facility] Hospitalt[facility]: 10-28-2024 End: 31-48-5737Ryzknbt encounter isxjtbhme76/06/2025 3:45 PM EST Office Visit [facility] [address] [place] [address] Eulalio Martinez DO [address] [place] [address] [facility] NB ORTHOStart: 15-59-8885PBFPQBPC SCREENDIABETES SCREEN [facility]: 09-30-2024 End: 56-97-0700Yhpvhqw encounter zonlvnviy10/06/2025 3:30 PM EST Office Visit [facility] [address] [place] [address] Eulalio Martinez, DO [address] [place] [address] [facility] ORTHOStart: 81-90-1938Cglwpru Directive Discussion Advance Directive DiscussionMedina Hospitaltart: 79-13-5000Hoftqznxgums Vaccine: 65+ Years (1 of 1 - PCV)Pneumococcal Vaccine: 65+ Years (1 of 1 - PCV) [facility] HealthcareStart: 08-24-2024 End: 72-94-6730Mogucox encounter procedureNORESEARCH MEDICAL [facility]ENTER ORTHOComment on above:Arrived Start: 08-03-2024 End: 46-78-2161BRW W Auto Differential panel - BloodCBC auto differential Lab Routine Pre-op testing Expected: 08/03/2024 (Approximate), Expires: 07/27/2025 [facility] Healthcare Work Phone: Comment on above:Expected: 08/03/2024 (Approximate), Expires: 07/27/2025Start: 08-03-2024 End: 97-78-9351Hzjiuyeegkybl metabolic 2000 panel - Serum or PlasmaComprehensive metabolic panel Lab Routine Pre-op testing Expected: 08/03/2024 (Approximate), Expires: 07/27/2025[facility] HealthcareComment on above:Expected: 08/03/2024 (Approximate), Expires: 07/27/2025Start: 07-30-2024 End: 09-07-3387Gzlcbjzsksfa / ancillary services pwnvwrckiz41/06/2024 3:30 PM EST Ancillary Procedure [facility] FNR MR [address] [place] [address] [facility] FNR MRStart: 07-30-2024 End: 06-03-5086Gmjsaop encounter ivnvtkioj33/06/2024 3:00 PM EST Office Visit Cardiology [address] [place] [address] [place] [address] [place] [address] 6 month follow upCardiologyComment on above:6 month follow up Start: 07-27-2024 End: 00-81-8509Ekmpeoe encounter mkaqeflyg69/03/2024 3:30 PM EST Office Visit [facility] [address] [address] Eulalio Martinez DO [address] [place] [address] ArrivedNOMS NB ORTHOComment on above:ArrivedStart: 07-27-2024 End: 75-88-2387NMR 12 leadECG 12 lead ECG Routine Pre-op testing Expected: 07/27/2024 (Approximate), Expires: 07/27/2025[facility] HealthcareComment on above: Expected: 07/27/2024 (Approximate), Expires: 07/27/2025Start: 06-25-2024 End: 85-49-6480CP Thoracic spine 3 ViewsXR thoracic spine 3 views Imaging Routine Strain of thoracic back region Muscle spasm Expected: 06/25/2024, Expires: 06/25/2025[facility] Work Phone: Comment on above:Expected: 06/25/2024, Expires: 06/25/2025Start: 06-15-2024 End: 09-98-3095Laldmah encounter procedureNOMS NB ORTHOComment on above:Arrived Start: 06-11-2024 End: 11-42-5538Cebnzkn encounter amxainyhf44/18/2024 12:00 PM EDT Office Visit [facility] [address] [facility] [address] [place] [address] Grace Bucio MD [address] [facility] [address] [place] [address] GENSStart: 06-10-2024 End: 67-78-1607Henlidv encounter bvcmngjji60/17/2024 4:30 PM EDT Office Visit [facility] FM [address] [facility] [address] [place] [address] Sedrick Lyons NP [address] [place] [address] ArrivedNOMS CI FMComment on above:ArrivedStart: 06-02-2024 End: 17-60-6684Tvsjmre encounter khazdtstt78/09/2024 2:30 PM EDT Procedure Visit [facility] EXT DEP Grace Bucio MD [address] [place] [address] [facility] EXT DEPStart: 05-21-2024 End: 68-12-1197Pownjlw encounter vyghdwqqg70/27/2024 12:00 PM EDT Consult [facility] [address] [place] [address] Grace Bucio MD [address] [place] [address] GENSStart: 05-04-2024 End: 81-18-3190Xdeysnx encounter aobnqgknf81/10/2024 3:00 PM EDT Consult [facility] [address] [place] [address] Grace Bucio MD [address] [place] [address] GENSStart: 42-14-0847Mslpd-19 Vaccine ( season)Covid-19 Vaccine ( season)[facility]: 50-35-0835Bfponzxyr vaccinationMedina Hospitalt[facility]: 01-30-2024 End: 38-05-8424Rjxygig encounter sarmqalsy00/07/2024 3:00 PM EDT Office Visit Cardiology [address] [place] [address] [place] [address] [place] [address] Return in about 6 months (around 01/30/2024).CardiologyComment on above:Return in about 6 months (around 01/30/2024).Start: 41-70-5436Txujfgbkko Health ScreeningBehavioral Health ScreeningMed[facility] Hospitaltart: 08-25-2023 Depression AssessmentDepression AssessmentMed[facility] Hospital[facility]: 04-25-2023 Covid-19 Vaccine ( season)Covid-19 Vaccine ( season) [facility]: 63-05-1469Rvwbrakbu vaccinationMedina Hospital[facility]: 50-85-3062SJ CONTROLLED (<130/80)BP CONTROLLED (<130/80)[facility]: 73-03-1307SL CONTROLLED (<130/80)BP CONTROLLED (<130/80)[facility]: 32-16-5665ZUCPINQIRL ASSESSMENTDEPRESSION ASSESSMENTMed[facility]: 93-15-6771Fqwtbrlld vaccinationMed[facility] Hospital[facility]: 03-28-2022 End: 81-80-6762Fmzeahexivbxl metabolic 2000 panel - Serum or PlasmaCOMP METABOLIC PANEL Lab Routine Atherosclerosis Expected: 03/28/2022, Expires: 05/[facility]2022[facility] Work Phone: Comment on above:Expected: 03/28/2022, Expires: 05/28/2022tart: 03-28-2022 End: 36-72-2605Sidff 1996 panel - Serum or PlasmaLIPID PANEL BASIC Lab Routine Atherosclerosis Expected: 03/28/2022, Expires: 05/28/2022[facility] Work Phone: Comment on above:Expected: 03/28/2022, Expires: 05/28/2022tart: 03-13-2022 End: 63-44-3664Sz heart contrast eval cardiac structure&morphCT PULMONARY VEIN W IVCON Radiology Routine Persistent atrial fibrillation (HCC) Expected: 03/13/2022, Expires: 01/11/2023[facility] Work Phone: comment on above:Expected: 03/13/2022, Expires: 01/11/2023Start: 12-12-2021 End: 37-79-5133EFA COMPLETEECG COMPLETE ECG Routine Persistent atrial fibrillation (HCC) Expected: 12/12/2021, Expires: 12/12/2022[facility] Work Phone: comment on above:Expected: 12/12/2021, Expires: 12/12/2022Start: 97-21-2932ITQ, Provider: Tera Davison, Status: Pen, Time: 3:10 PMFUV, Provider: Tera Davison, Status: Pen, Time: 3:10 PMMP-[facility]-[place] [address] DO Work Phone: Start: 67-95-0811FRH, Provider: STANISLAV RAMIREZ COURT WORKER 1,[id number], Status: Pen, Time: 1:30 PMEKG, Provider: STANISLAV RAMIREZ COURT WORKER 1,[id number], Status: Pen, Time: 1:30 PM-[facility]-[place] [address] DO Work Phone: Start: 05-72-0669JVCOROHSI, Provider: Tera Davison, Status: Pen, Time: 10:00 [facility], Provider: Tera Davison, Status: Pen, Time: 10:00 [facility] Work Phone: Start: 72-31-2229KSJYKQYOXM ASSESSMENTDEPRESSION ASSESSMENTMed[facility] Hospitaltart: 71-51-1441PCOAMQLGD, Provider: Tera Davison, Status: Pen, Time: 9:00 [facility], Provider: Tera Davison, Status: Pen, Time: 9:00 [facility] [address] DO Work Phone: Start: 04-55-1590MXM Vaccine (1 - 1-dose 60+ series) RSV Vaccine (1 - 1-dose 60+ series)[facility]: 40-97-2026GMCQBAAF CANCER SCREENING DISCUSSIONPROSTATE CANCER SCREENING DISCUSSIONUniversity Hospitals [facility] Center Start: 49-41-1338Jympqxnlbynn Vaccine: 50+ (1 of 1 - PCV)Pneumococcal Vaccine: 50+ (1 of 1 - PCV)[facility]: 18-85-6585Xkmkjxatbrsk Vaccine: 65+ Years (1 of 1 - PCV)Pneumococcal Vaccine: 65+ Years (1 of 1 - PCV)[facility] HealthcareStart: 53-01-0338QWVQYPTK VACCINE (1 of 2)SHINGRIX VACCINE (1 of 2) [facility]: 45-54-1832AQXTCRULP (FIT-DNA)COLOGUARD (FIT-DNA)[facility]: 40-98-0547JjbftjdgxgjVKMNFYHDYWVQfnioipfs ClinicStart: 2004 COLORECTAL CANCER SCREENINGCOLORECTAL CANCER SCREENINGMed[facility] Hospital[facility]: 58-74-6207TS COLONOGRAPHYCT COLONOGRAPHYMed[facility]: 51-31-0643FPUKR OCCULT BLOODFECAL OCCULT BLOODMed[facility]: 00-46-8724Tyejbtwxf for malignant neoplasm of colonMedina Hospitalt[facility]: 39-94-6999MMTZCKZWUAIHG SIGMOIDOSCOPYMed[facility]: 95-67-9888CEFLY SCREENLIPID SCREENMed[facility]: 10-43-9599Gwehmqqclkvm Vaccine: 65+ Years (1 of 2 - PCV) Pneumococcal Vaccine: 65+ Years (1 of 2 - PCV)[facility] HealthcareStart: 1978 Urine microalbumin profileMedina Hospitaltart: 72-00-0558TCKUNG PCP TEAM CHRONIC DISEASE VISITANNUAL PCP TEAM CHRONIC DISEASE VISITMed[facility]: 31-59-5750Ovgkfuy ScreeningAnxiety ScreeningMed[facility]: 98-77-5250TA CONTROLLED (<130/80)BP CONTROLLED (<130/80)[facility]: 1977 Depression ScreeningDepression ScreeningMed[facility] Hospital[facility]: 1977 HEPATITIS C SCREENINGHEPATITIS C SCREENINGMed[facility] Hospital[facility]: 1977 Hepatitis C screeningHepatitis C ScreeningMed[facility] Hospital[facility]: 57-09-5022JUX SCREENINGHIV SCREENINGMed[facility]: 71-59-7942WFH screeningHIV ScreeningMed[facility]: 26-25-2172Tausl depression screening assessment DEPRESSION SCREENINGMedina Hospitaltart: 92-29-1758ULCAL-19 VACCINE (#1)COVID- 19 VACCINE (#1)[facility]: 39-25-2430HVBFX-19 VACCINE (1)COVID-19 VACCINE (1)[facility]: 69-62-8128UEJYB-19 VACCINE (#1)COVID-19 VACCINE (#1)[facility]: 35-96-7341Yqssbeemp for malignant neoplasm of colonFreeman Heart InstituteBanoqkwejl32-wutpgbcnvtvlqs D3 [Mass/volume] in Serum or Plasma Vitamin D 25 hydroxy Total Lab Routine Wellness examination Muscle cramping Ordered: 03/01/2025[facility] InstituteComment on above:Ordered: 03/01/2025 Nkvc-2-Fivwuzghzeywx [Mass/volume] in Serum or PlasmaBucyrus Community HospitalBlood type and Indirect antibody screen panel - BloodBucyrus Community HospitalBone marrow samplingBucyrus Community HospitalCBC W Auto Differential panel - BloodCBC auto differential Lab Routine 04/20/2024 6:07 AM [facility] Work Phone: cbc W Auto Differential panel - BloodCBC auto differential Lab Routine 01/13/2025 7:10 AM [facility] Work Phone: cbc W Auto Differential panel - BloodCBC auto differential Lab Routine 02/10/2025 9:15 AM [facility] Work Phone: cbc W Auto Differential panel - BloodCBC auto differential Lab Routine 05/12/2025 9:36 AM [facility] Work Phone: Comprehensive metabolic 1999 panel - Serum or Plasma [facility] Community HospitalComprehensive metabolic 1999 panel - Serum or [facility] HospitalComprehensive metabolic 1999 panel - Serum or [facility] HospitalComprehensive metabolic 1999 panel - Serum or PlasmaComprehensive metabolic panel Lab Routine 05/12/2025 9:36 AM [facility] Work Phone: Comprehensive metabolic 1999 panel - Serum or Plasma [facility] HospitalComprehensive metabolic 1999 panel - Serum or [facility] End: 38-29-7308GNL COMPLETEECG COMPLETE ECG Routine Atrial fibrillation, persistent (HCC) 1 Occurrences starting 08/01/2022 until 08/01/2023[facility] Work Phone: Comment on above:1 Occurrences starting 08/01/2022 until 08/01/2023ECG COMPLETEECG COMPLETE ECG 08/01/2022 2:00 PM [facility] End: 84-45-5311JghucdxkobzbnvobYAON Cardiology Routine Persistent atrial fibrillation (HCC) 1 Occurrences starting 12/12/2021 until 12/12/2022[facility] Work Phone: comment on above:1 Occurrences starting 12/12/2021 until 12/12/2022 End: 48-85-6114DbvapwamrsolwkyaGJNP Cardiology Routine PAF (paroxysmal atrial fibrillation) (HCC) 1 Occurrences starting 04/04/2025 until 04/04/2026[facility] Work Phone: Comment on above:1 Occurrences starting 04/04/2025 until 04/04/2026Ferritin [Mass/volume] in Serum or PlasmaFerritin Lab Routine 04/23/2024 3:51 PM [facility]FREE K+L LT CHAINS, QN, SFREE K+L LT CHAINS, QN, S Lab Routine 02/10/2025 9:15 AM [facility] SystemHaptoglobin [Mass/volume] in Serum or [facility] HospitalHaptoglobin [Mass/volume] in Serum or [facility] HospitalHemoglobin A1c/Hemoglobin.total in BloodHemoglobin A1c Lab Routine Muscle cramping Wellness examination IFG (impaired fasting glucose) Ordered: 03/01/2025[facility] Comment on above:Ordered: 03/01/2025Iron and Iron binding capacity panel - Serum or PlasmaIron and TIBC Lab Routine 04/23/2024 3:51 PM [facility] Work Phone: Iron and Iron binding capacity panel - Serum or Plasma Iron and TIBC Lab Routine 05/12/2025 9:36 AM [facility] SystemLipid 1996 panel - Serum or PlasmaLipid panel Lab Routine Wellness examination Primary hypertension Ordered: 03/01/2025[facility] InstituteComment on above:Ordered: 03/01/2025Patient EducationFirriverside walter [facility] Bone Marrow Aspiration or Biopsy Know your MedsFirelands Regional Med Center Work Phone: Patient [facility] Work Phone: Prostate specific Ag [Mass/volume] in Serum or Plasma PSA Lab Routine Wellness examination Screening for malignant neoplasm of prostate Ordered: 03/01/2025[facility] InstituteComment on above:Ordered: 03/01/2025 Protein electrophoresis, serumProtein electrophoresis, serum Lab Routine 02/10/2025 9:15 AM [facility] Work Phone: TSH W/REFLEX TO FT4TSH W/REFLEX TO FT4 Lab Routine Muscle cramping Wellness examination Ordered: 03/01/2025[facility] Work Phone: Comment on above:Ordered: 03/01/2025VIT. B12/FOLATE PROFILEVIT. B12/FOLATE PROFILE Lab Routine 04/23/2024 3:51 PM [facility] [place] Immunizations Immunization DateImmunizationNotesCare ZhekrkkhRivbbidf45-73-1070lpjdputgp, injectable, quadrivalent, preservative freeChristian Carlos DO Work Phone: [facility] InstituteSpwkluqgtq00-06-0505sbxxjigvr virus vaccine, unspecified formulationBill Tuttle MD Work Phone: [facility] CenterWjtysv57-30-2917zbolsurby, injectable, quadrivalent, preservative freeRennym E Cassi Work Phone: [facility] CenterUsbore02-59-4680jmzamyzmi, seasonal, injectableKim E Ye Work Phone: [phone]-CuhngNorth Valley Health Center 250 DO Work Phone: [phone]af, injectable, quadrivalent, preservative freeKim E Cassi Work Phone: [facility] CenterPpuyec47-90-5999kqcmltoyg B vaccine, adult dosageKim E Cassi Work Phone: [facility] CenterNyhyka91-03-6561ernaorvvk B vaccine, adult dosageKim E Cassi Work Phone: [facility] CenterEaybcw34-89-7914mojwcyteq B vaccine, adult dosageKim E Cassi Work Phone: [facility] Payers DatePayer CategoryPayerPolicy ID2025MedicareMEDICARE Member Subscriber Plan / Payer (Effective 2025-Present) Name: Darius Valera MemberID: [id number] Relation to Subscriber: Self Name: Darius Valera Subscriber ID: [id number] PayerID: STATE Group ID: Not on file Type: Medicare Address: [place] [id number] [id number] Health Insurance [id number] UnknownMMO MMO MHS [id number] 2020-Present [phone] [address] [address] [place] [address] Oedbmlnpuyhuodabp2601 1.2.840.673435.1.13.159.2.7.3.639[id number] [id number] 2.16.840.1.271698.3.579.2.593 60-23-1211Nkbmcuv1632689 2.16.840.1.039955.3.579.2.51427-49-2598Mbfhejm7117162 2.16.840.1.260059.3.579.2.10247-18-5850Tnlqciv7608324 2.16.840.1.065949.3.579.2.57590-83-7395Apqcjhv53180316 2.16.840.1.277894.3.579.2.83265-69-7572Oqzgxne63013207 2.16.840.1.913498.3.579.2.38514-89-8243Speriww37443889 2.16.840.1.979357.3.579.2.61438-15-4819Tmzdksz48180689 2.16.840.1.671832.3.579.2.56700-80-1018Vrinjcq84680690 2.16.840.1.773688.3.579.2.10968-89-3929Iqgjubw30953203 2.16.840.1.727816.3.579.2.303777-19-0006Ciyqpkh9457366 2.16.840.1.298274.3.579.2.643239-19-0087Yxzxgmd3049225 2.16.840.1.167505.3.579.2.364038-12-7102Gpovbfv4535823 2.16.840.1.323983.3.579.2.047405-24-2199Avneimq7345649 2.16.840.1.658228.3.579.2.632110-09-9455Aigguhs0123832 2.16840.1.358008.3.579.2.086760-86-0217Uqtamfs5382865 2.16840.1.978109.3.579.2.206479-12-5415Ptkwlnc3161574 2.16840.1.181062.3.579.2.654341-89-3648Yrlhqhb8580935 2.0.1.857107.3.579.2.216794-73-4272Eemfuhl9158721 2.0.1.661744.3.579.2.235965-97-4962Cgvvskj8129916 2.840.1.055784.3.579.2.172809-90-5046Ctlflgy3525666 2..1.152560.3.579.2.351707-06-7902Nifxnex0620988 2.0.1.251348.3.579.2.961067-90-3222Mgomxcx0592594 2.0.1.297125.3.579.2.942498-71-7263Hdbafky4008880 2..1.294721.3.579.2.782832-78-5429Vyeweqy0016421 2..1.493683.3.579.2.002150-89-5460Thtbnum7764655 2.0.1.607021.3.579.2.234042-33-4727Vycxrjb5185233 2..1.360921.3.579.2.504595-11-0016Llce-suh32561429801-49-6478Mtayml's [id number] 2.840.1.6[id number] 2.16.840.1.643[id number] 2.16.840.1.890942.3.579.2.531 [id number] 2.16.840.1.9[id number] 2.16.840.1.765144.3.579.2.531 Social History DateTypeDetailFacilityStart: 01-17-2023 End: 57-98-4139Gdebhyqd alcohol occasionallyConsumes alcohol occasionallyNOMS HealthcareComment on above:COFFEE ONCE IN A WHILE;occasionally;Start: 08-27-2021 End: 72-35-4451Ccjeuiv smoking status NHISNever smoked tobaccoUniversity Hospitals Cleveland Medical Center Start: 13-83-5669Ucb Assigned At BirthNot on fileMedina Hospitaltart: 11-09-2021 End: 81-28-8668Sbypcwnd to SARS-CoV-2 (event)Not sureMedina Hospitaltart: 08-27-2021 End: 39-82-0033Nldmukw use and exposureSmokeless tobacco non-userMedina Hospitaltart: 12-03-2021 End: 59-00-2001Nkhzdes intakeEx-drinker (finding)[facility]: 12-25-2021 End: 70-00-2380Aiupqkbu to SARS-CoV-2 (event)Unable to assessUniversity Hospitals Cleveland Medical Center Work Phone: Start: 01-17-2023 End: 16-92-8967Zhvmlae use panelNONV HealthcareStart: 06-01-2021 End: 56-56-3739Cbqjpbrl Score (1-100), lower number is lower mrxa94EbpainbdfMedina Hospitaltart: 83-90-8617Cgx [facility]24 End: 70-77-1799Mbtqvaojf beverage intakeCurrent drinker of alcohol (finding)[facility] HealthcareWithin the last year, have you been afraid of your partner or ex-partner?NoNOMS HealthcareDo you belong to any clubs or organizations such as yarsani groups, unions, fraternal or athletic groups, or school groups?YesNOMS HealthcareAre [...] before (I/we) got money to buy more.Never trueNONV HealthcareStart: 07-42-2574Pmqount Comment Caffeine intake: 1-2 cups per dayNONV HealthcareStart: 12-07-2024 End: 19-82-5004LnoHyxm (finding)[facility] Functional Status IgjkQsfneitpkyOtnlchJytuxros05-33-2186Sgyjfmu Health Questionnaire 2 item (PHQ- 2) [Reported][facility] Heart [id number] Health Questionnaire 2 item (PHQ- 2) [Reported][facility] InstituteHriudgvaxe33-03-6408Tlx you deaf, or do you have serious difficulty hearingNo 12/04/2021 11:08 AM Irene Teixeira RN [facility]Rmdgyd79-09-4929Uxc you blind, or do you have serious difficulty seeing, even when wearing glassesNo 12/04/2021 11:08 AM Irene Teixeira RN NoCWVUMedicine Harrison Community HospitalFlowvi15-02-3029He you have serious difficulty walking or climbing stairsNo 12/04/2021 11:08 AM Irene Teixeira RN NoCWVUMedicine Harrison Community HospitalHtgcse31-97-0627Np you have difficulty dressing or bathingNo 12/04/2021 11:08 AM Irene Teixeira RN NoCWVUMedicine Harrison Community HospitalXcgaka76-94-2711Ydtekln of a physical, mental, or emotional condition, do you have difficulty doing errands alone such as visiting a physician's office or shoppingNo 12/04/2021 11:08 AM EDT Irene Tidwell RN No [facility] Mental Status VkiqDavbxevjdeEkywmmXhosivkm22-91-6241Zodyiax of a physical, mental, or emotional condition, do you have serious difficulty concentrating, remembering, or making decisionsNo 12/04/2021 11:08 AM EDT Irene Tidwell RN [facility] Clinical Notes 11-30-2021 to 05-13-2025 Note Date & BrxxTwawTjdfhioe82-93-3170 Evaluation note* Diagnosis Onset Date Resolution Status Admit Date Autoimmune hemolytic anemia acuteSeptember 2024 9:24amCLL (chronic lymphocytic leukemia)acuteSeptember 2024 9:24am [facility] Work Phone: 1(283) 880-478409-12-2025 Progress note Author Christian Carlos [facility] HospitalNote Date/TimeSeptember 2024 4:02pm [facility] [place] [address] Cancer Center Note Signed Patient: Darius Valera MR#: [id number] : 1960 Acct:[id number] Age/Sex: 64 / M Type: [facility] Date of Service: Copies to: Linda Jansen PA-C~ Assessment & Plan CHEMO PLAN No Active Chemotherapy History of Present Illness [facility] to [...] No Known Allergies Allergy (Verified 02/19/25 09:38) [facility] Medical History Medical History Lymphocytosis Kidney stone March 2023-removed History of torn meniscus of right knee DMITRY on CPAP Problem List clean-up per [facility] Phys. [facility] Problem List clean-up per request of Phys. [facility] Hypertension Problem List clean-up per request of Phys. [facility] Surgical History Surgical History History of surgery on right wrist excision of mass right wrist 07/14/2020 H/O cardiac radiofrequency ablation History of vasectomy Problem List clean-up per request [facility] Family [facility] Family History Father Gene disease [...] by Christian Carlos II, DO> 05/06/25 1602 [facility] Work Phone: 1(845) 992-549409-12-2025 [facility] [place] [address] Cancer Center Note Signed Patient: Darius Valera MR#: [id number] : 1960 Acct:[id number] Age/Sex: 64 / M Type: [facility] Date of Service: Copies to: Linda Jansen PA-C~ Assessment & Plan CHEMO PLAN No Active Chemotherapy History of Present Illness [facility] to [...] No Known Allergies Allergy (Verified 02/19/25 09:38) [facility] Medical History Medical History Lymphocytosis Kidney stone March 2023-removed History of torn meniscus of right knee DMITRY on CPAP Problem List clean-up per request of Phys. [facility] A-[facility] Problem List clean-up per request of Phys. [facility] Hypertension Problem List clean-up per request of Phys. [facility] Surgical History Surgical History History of surgery on right wrist excision of mass right wrist 07/14/2020 H/O cardiac radiofrequency ablation History of vasectomy Problem List clean-up per request of Phys. [facility] Family History Family History Father [place] disease Father Mother Cancer Endometrial Cancer Grandparent Pancreatic cancer Social History Social History (Updated 02/19/25 @ 09:39 by Irene Garcia [facility]) Smoking status: Never smoker Nicotine containing [...] DO DD/ 1557 Signed By: 05/06/25 1602 [facility]08-11-2025 NoteHNO ID: [id number] Author: BILL TUTTLE MD Service: ? Author Type: Physician Type: Progress Notes Filed: 04/04/2025 14:57 Note Text: [facility] [place] [facility]y Zepeda Department of Cardiovascular Medicine SECTION OF [facility] CARDIOLOGY OUTPATIENT VISIT DATE April 04, 2025 [...] male here today for follow up from [place], [place]. Has h/o AF s/p ablation, HTN, DMITRY, tachycardia induced CMP, and CHF. On Eliquis, Nifedipine XL, Valsartan/HCTZ added on Doxazosin. Doxazocin increased to 2 mg but has been using only 1 mg daily. Continue to have BP spikes above 150s. Sotalol was discontinued. He followed before with a local health care marketing manager Dr Hooks. Since last visit denies [...] TESTING: CT pulmonary 03/22/22 (more content not included)...[facility]08-11-2025 History of Present illness Narrative* Ita Tuttle MD - 04/04/2025 2:31 PM EDT Images from the original note were not included. [facility] [place] [facility] Department of Cardiovascular Medicine SECTION [...] male here today for follow up from [place]. Has h/o AF s/p ablation, HTN, DMITRY, tachycardia induced CMP, and CHF. On Eliquis, Nifedipine XL, Valsartan/HCTZ added on Doxazosin. Doxazocin increased to 2 mg but has been using only 1 mg daily. Continue to have BP spikes above 150s. Sotalol was discontinued. He followed before with a local health care marketing manager Dr Hooks. Since last visit denies [...] rare (<1.0%). Isolated VEs were occasional (1.4%, 72508), VE Couplets were rare (<1.0%, 56), and [...] Bystolic - S/p DCC by his local health care marketing manager (Dr Castle) and subsequent ablation by EP (Dr Sena). - Negative outside stress EKG for ischemia 03/22/2020 - Update echo - May use one supplemental Mg OTC daily to try for leg cramps - Most recent renal fx reviewed This note was partially generated using [employer] voice recognition system, and there may be some incorrect words, spellings, and punctuation that were not noted in checking the note before saving. Someelements copied from my previous notes which have been updated as appropriate and reflect current medical decision making from today Bill Tuttle M.D., Miguel CONTACT INFORMATION: Shelbi Tuttle M.D., Miguel. Freedom Of Information Officer Clinical blood bank supervisor [facility] Staff Research Epidemiologist Timothy Diaz [facility] Mail Code AVW2-1 [address] [place] [address] CC: To use this Smartlink, specify the [...] medications for this visit. documented in this encounterUniversity Hospitals Cleveland Medical Center07-24-2025 Telephone encounter Note * Telephone Encounter - DOROTHEA Liang - 03/17/2025 1:21 PM EDT My Chart Message. [facility] InstituteElnlnvwvxt64-77-1530 Miscellaneous Notes* Telephone Encounter - DOROTHEA Liang - 03/17/2025 1:21 PM EDT My Chart Message. documented in this encounterFreeman Heart InstituteMzdpokoebf16-77-1952 History of Present illness Narrative* DOROTHEA Liang [...] Lymphocytosis The patient is seeing a medical i d sales for this condition, treatment is deferred to that specialist. Correspondence from that specialist and any available testing were reviewed during today's visit. Arteriosclerotic vascular disease The patient is seeing a medical i d sales for this condition, treatment is deferred to [...] (HHS-HCC) The patient is seeing a medical i d sales for this condition, treatment is deferred to that specialist. Correspondence from that specialist and any available testing were reviewed during today's visit. Thoracic aortic ectasia The patient is seeing a medical i d sales for this condition, treatment is deferred to that specialist. Correspondence from that specialist and any available testing were reviewed during today's visit. History of colon polyps Will continue to monitor with routine screenings. PONV (postoperative nausea and vomiting) H/o, pt will need to inform anesthesia should he have any additional surgeries. IFG (impaired fasting glucose) - Hemoglobin A1c Will check J3fpefy upcoming fasting labs. Screening for malignant neoplasm of prostate - PSA Will check PSA with upcoming fasting labs. Follow up for Medicare Wellness Visit. documented in this encounterFreeman Heart InstituteQfodrzhryt18-14-9148 Evaluation note* Diagnosis Onset Date Resolution Status Admit Date Contact dermatitis acuteJune 2024 9:18am [facility] Work Phone: 1(282) 768-645105-12-2025 Telephone encounter Note* Telephone Encounter - Fabiola [...] 04/01/2022 0.98 0.73 - 1.22 mg/dL Final [facility]05-12-2025 Miscellaneous Notes* Telephone Encounter - [...] - 1.22 mg/dL Final documented in this encounterUniversity Hospitals Cleveland Medical Center04-17-2025 History of Present illness Narrative* Eulalio Martinez, - 12/09/2024 3:45 PM EDT Images from the original note were not included. @ROSIE@ Darius Valera is a 64 y.o. 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 Apply ice to the knee for [...] no diagnoses linked to this encounter. Eulalio Martinez D.O. Attestation This note was created using voice recognition through [employer]. documented in this encounterFreeman Heart InstituteEpphqwguxr77-08-7402 History of Present illness Narrative* Aracely De León, KARMENT - 09/30/2024 3:30 PM ESTAssociated Order(s): L Inj/Asp: R knee Post-Procedure Diagnose(s): Right knee pain, unspecified chronicity L Inj/Asp: R knee on 09/30/2024 4:29 PM Indications: pain Details: 25 G needle, lateral approach Medications: 1.5 mg betamethasone acetate-betamethasone sodium phosphate 6 (3-3) MG/ML Consent was given by the patient. * Eulalio Martinez, - 09/30/2024 3:30 PM EST Images from the original note were not included. @ROSIE@ [facility] Soto is a 64 y.o. male who presents [...] applying ice to the affected area ni [facility] after work, which provided relief until [...] hour before bedtime. He can continue taking [place] if needed, but not at the same [...] 1 tab day 11 and 12. Eulalio Martinez D.O. Attestation This note was created using voice recognition through [employer]. documented in this encounterFreeman Heart InstituteUmeikxfnyh95-50-5561 Telephone encounter Note* Telephone Encounter - Bria [...] 04/01/2022 0.98 0.73 - 1.22 mg/dL Final [facility]02-04-2025 Miscellaneous Notes* Telephone Encounter - [...] - 1.22 mg/dL Final documented in this encounterUniversity Hospitals Cleveland Medical Center01-28-2025 Instructions* Patient Instructions* Tony Armstrong PA-C - 09/21/2024 4:57 PM EST Please schedule appt with Dr. Tuttle in 6 months documented in this encounterUniversity Hospitals Cleveland Medical Center01-28-2025 History of Present illness Narrative* Tony Armstrong PA-C - 09/21/2024 4:30 PM EST Images from the original note were not included. [facility] [place] [facility] Department of Cardiovascular Medicine SECTION [...] rare (<1.0%). Isolated VEs were occasional (1.4%, 64486), VE Couplets were rare (<1.0%, 56), and [...] months CONTACT INFORMATION: Tony Armstrong PA-C Cardiology [address] [place] [address] Dept: [phone] Dept documented in this encounterUniversity Hospitals Cleveland Medical Center01-28-2025 NoteHNO ID: [id number] Author: TONY ARMSTRONG PA-C Service: ? Author Type: Physician Freedom Of Information Officer Type: Progress Notes Filed: 09/21/2024 17:03 Note Text: [facility] [place] [facility] Department of Cardiovascular Medicine SECTION [...] rare (<1.0%). Isolated VEs were occasional (1.4%, 47312), VE Couplets were rare (<1.0%, 56), and [...] months CONTACT INFORMATION: Tony Armstrong PA-C Cardiology [address] [place] [address] Dept: [phone] Dept [facility]01-[facility]-2025 History of Present illness Narrative* DOROTHEA Liang [...] No follow-ups on file. documented in this encounterFreeman Heart InstituteJptcltswyw31-67-4600 History of Present illness Narrative* Eulalio Martinez, DO - 08/24/2024 11:15 AM EST Images from the original note were not included. @ESADATE@ [facility] Soto is a 63 y.o. male who presents [...] no diagnoses linked to this encounter. Eulalio Martinez D.O. Attestation This note was created using voice recognition through [employer]. documented in this encounterFreeman Heart InstituteFawioofggy85-44-4649 History of Present illness Narrative* Eulalio Martinez DO - 07/27/2024 3:30 PM EST Images from the original note were not included. @SAMTE@ Darius Giles Soto is a 63 y.o. male who presents [...] He went to the urgent care in [place] for evaluation the following day. Xrays of [...] medical record, and coordinating patient care. Eulalio Martinez D.O. Attestation This note was created using voice recognition through [employer] artificial intelligence. documented in this encounterFreeman Heart InstituteNzmmxnthxv57-39-3685 Telephone encounter Note* Telephone Encounter - Bria [...] 04/01/2022 0.98 0.73 - 1.22 mg/dL Final [facility]11-06-2024 Miscellaneous Notes* Telephone Encounter - [...] - 1.22 mg/dL Final documented in this encounterUniversity Hospitals Cleveland Medical Center11-05-2024 Telephone encounter Note * Telephone Encounter - DOROTHEA Liang - 06/29/2024 4:06 PM EST My Chart message sent. [place] [id number] Miscellaneous Notes* Telephone Encounter - DOROTHEA Liang - 06/29/2024 4:06 PM EST My Chart message sent. documented in this encounterFreeman Heart InstituteYrfdiwbbhn36-79-3044 Telephone encounter Note* Telephone Encounter - DOROTHEA Liang - 06/28/2024 10:41 AM EST Message sent through Mogreet [place] [id number] Miscellaneous Notes* Telephone Encounter - DOROTHEA Liang - 06/28/2024 10:41 AM EST Message sent through Mogreet * Telephone Encounter - Kayla Rose LPN - 06/25/2024 12:28 PM EDT Attempted to call patient multiple times and call will not go through. Xray order has been sent to [facility] so he can go get that done at his convenience and PT will contact him to schedule. * Telephone Encounter - DOROTHEA Liang - 06/25/2024 12:08 PM EDT Ok to send order for x-rays to [facility]. Please let pt know that x-rays [...] he would like to have done at [facility] if you do order. documented in this encounterNORanken Jordan Pediatric Specialty HospitalJphzjgshtq90-05-9731 Telephone encounter Note* Telephone Encounter - Kayla Rose LPN - 06/25/2024 12:28 PM EDT Attempted to call patient multiple times and call will not go through. Xray order has been sent to [facility] so he can go get that done at his convenience and PT will contact him to schedule. [facility] InstituteYqbhuydwxx01-56-5652 Telephone encounter Note* Telephone Encounter - DOROTHEA Liang - 06/25/2024 12:08 PM EDT Ok to send order for x-rays to [facility]. Please let pt know that x-rays have been ordered and a PT referral was sent for him also. [facility] InstituteGsusfasypn95-65-9008 Telephone encounter Note* Telephone Encounter - Kayla Rose LPN - 06/25/2024 11:51 AM EDT Pt called stating he saw Sedrick Lyons on 06/10 and was diagnosed with stain of thoracic spine and muscle spasm, rx'd Prednisone, Tizanidine. States it is not really helping and was ?'ing if you could order either an x-ray or PT. X-ray he would like to have done at [facility] if you do order. [facility] InstituteKtyihjwwyx54-55-6732 History of Present illness Narrative* Eulalio Martinez, - 06/15/2024 3:15 PM EDT Images from the original note were not included. @ENCDATE@ [facility] Soto is a 63 y.o. male who presents [...] MRI of the right knee performed at [facility] on 03/13/2019; Tear in the body [...] no diagnoses linked to this encounter. Eulalio Martinez D.O. Attestation This note was created using voice recognition through [employer] artificial intelligence. documented in this encounterFreeman Heart InstituteHdwooeehtm69-91-3065 History of Present illness Narrative* Sedrick Lyons [...] No follow-ups on file. documented in this [facility]10-17-2024 Instructions* Patient Instructions* Sedrick Lyons NP - 06/10/2024 4:30 PM EDT Added prednisone and tizanidine. documented in this [facility]09-27-2024 History of Present illness Narrative* Grace Haque [...] fibrillation (CMS/HCC) COVID-19 08/05/2023 Hydronephrosis 04/14/2023 Hyperlipidemia ([facility]/HCC) Hypertension ([facility]) Kidney stone 04/14/2023 DMITRY (obstructive sleep apnea) [...] colonoscopy in 10 years. documented in this encounterFreeman Heart InstituteSmpihocbyd94-20-9704 History of Present illness Narrative* Ita Tuttle MD - 01/30/2024 2:08 PM EDT Images from the original note were not included. [facility] [place] [facility] Department of Cardiovascular Medicine SECTION OF REGIONAL CARDIOLOGY OUTPATIENT VISIT DATE January 30, 2024 OUTPATIENT VISIT TYPE ESTABLISHED HISTORY OF PRESENT ILLNESS: Darius Valera is a (an) 63 year old year old male who is here today for follow- up. He had elevated WBCs and was seen by outside technical operations manager and was told might have CLL Last [...] male here today for follow up from [place], [place]. Has h/o AF s/p ablation, HTN, DMITRY, tachycardia induced CMP, and CHF. On Eliquis, Nifedipine XL, Valsartan/HCTZ added on Doxazosin. Doxazocin increased to 2 mg but has been using only 1 mg daily. Continue to have BP spikes above 150s. Sotalol was discontinued. He followed before with a local health care marketing manager Dr Hooks. Since last visit denies [...] rare (<1.0%). Isolated VEs were occasional (1.4%, 84688), VE Couplets were rare (<1.0%, 56), and [...] needed - S/p DCC by his local health care marketing manager (Dr Castle) and subsequent ablation by EP (Dr Sena). - Negative outside stress EKG for ischemia 03/22/2020 - Refill authorized - Most recent renal fx reviewed This note was partially generated using [employer] voice recognition system, and there may be some incorrect words, spellings, and punctuation that were not noted in checking the note before saving. Someelements copied from my previous notes which have been updated as appropriate and reflect current medical decision making from today Bill Tuttle M.D., Miguel CONTACT INFORMATION: Shelbi Tuttle M.D., Miguel. Freedom Of Information Officer Clinical blood bank supervisor [facility] Staff Research Epidemiologist Timothy Diaz [facility] Mail Code AVW2-1 [address] [place] [address] CC: To use this Smartlink, specify the provider ID whose address you want to display, e.g., .PROVADDR[1 (where 1 is the provider ID). documented in this encounterUniversity Hospitals Cleveland Medical Center05-08-2024 Telephone encounter Note * Telephone [...] 04/01/2022 0.98 0.73 - 1.22 mg/dL Final [facility]05-08-2024 Miscellaneous Notes* Telephone Encounter - [...] - 1.22 mg/dL Final documented in this encounterUniversity Hospitals Cleveland Medical Center01-22-2024 Miscellaneous Notes* Telephone Encounter - Uyen Martinez RN - 09/15/2023 10:37 AM EST Pt sent citysocializer message regarding below. * Telephone Encounter - [...] Thanks Shelbi Tuttle MD documented in this encounterUniversity Hospitals Cleveland Medical Center12-07-2023 History of Present illness Narrative* Ita Tuttle MD - 07/31/2023 12:48 PM EST Images from the original note were not included. [facility] [place] [facility]epeda Department of Cardiovascular Medicine SECTION [...] male here today for follow up from [place]. Has h/o AF s/p ablation, HTN, DMITRY, tachycardia induced CMP, and CHF. On Eliquis, Nifedipine XL, Valsartan/HCTZ added on Doxazosin. Doxazocin increased to 2 mg but has been using only 1 mg daily. Continue to have BP spikes above 150s. Sotalol was discontinued. He followed before with a local health care marketing manager Dr Hooks. Since last visit denies [...] size - S/p DCC by his local health care marketing manager (Dr Castle) and subsequent ablation by EP (Dr Sena). - Negative outside stress EKG for ischemia 03/22/2020 - Advised to establish with a PCP at [facility] This note was partially generated using [employer] voice recognition system, and there may be some incorrect words, spellings, and punctuation that were not noted in checking the note before saving. Someelements copied from my previous notes which have been updated as appropriate and reflect current medical decision making from today Bill Tuttle M.D., Miguel CONTACT INFORMATION: Shelbi Tuttle M.D., Miguel. Freedom Of Information Officer Clinical blood bank supervisor [facility] Staff Research Epidemiologist Timothy Diaz [facility] Mail Code AVW2-1 [address] [place] [address] CC: To use this Smartlink, specify the provider ID whose address you want to display, e.g., .PROVADDR[1 (where 1 is the provider ID). documented in this encounterUniversity Hospitals Cleveland Medical Center08-08-2023 Miscellaneous Notes* Telephone Encounter - [...] - 1.22 mg/dL Final documented in this encounterUniversity Hospitals Cleveland Medical Center05-03-2023 History of Present illness Narrative* Ita Tuttle MD - 12/25/2022 2:00 PM EDT Images from the original note were not included. [facility] [place] [facility] Department of Cardiovascular Medicine SECTION OF REGIONAL CARDIOLOGY OUTPATIENT VISIT DATE December 25, 2022 OUTPATIENT VISIT TYPE Established HISTORY OF PRESENT ILLNESS: Darius Valera is a 62 year old male here today for follow up from [place], [place]. Has h/o AF s/p ablation, HTN, DMITRY, tachycardia induced CMP, and CHF. On Eliquis, Nifedipine XL, Valsartan/HCTZ added on Doxazosin. Doxazocin increased to 2 mg but has been using only 1 mg daily. Continue to have BP spikes above 150s. Sotalol was discontinued. He followed before with a local health care marketing manager Dr Hooks. Since last visit denies [...] daily - S/p DCC by his local health care marketing manager (Dr Castle) and subsequent ablation by [...] needed. This note was partially generated using [employer] voice recognition system, and there may be some incorrect words, spellings, and punctuation that were not noted in checking the note before saving. Bill Tuttle M.D., F.A.C.C CONTACT INFORMATION: Bill Tuttle M.D., F.A.C.C. Staff Research Epidemiologist Timothy Diaz [facility] Mail Code AVW2-1 [address] [place] [address] CC: To use this Smartlink, specify the provider ID whose address you want to display, e.g., .PROVADDR[1 (where 1 is the provider ID). documented in this encounterUniversity Hospitals Cleveland Medical Center05-02-2023 NotePROCEDURE: XR FOOT RT MIN [...] Electronically authenticated by: BRIA PATEL Date: 2022-12-24 12:07[facility]05-02-2023 NotePROCEDURE: XR FOOT RT MIN 3 [...] Electronically authenticated by: BRIA PATEL Date: 2022-12-24 12:07[facility]03-08-2023 Miscellaneous Notes* Telephone Encounter - Lila Alvarenga - 10/30/2022 3:09 PM EST Darius rescheduled for [facility] in March with Dr. Sena. 10/30/2022 [...] only Please advise spouse documented in this encounterUniversity Hospitals Cleveland Medical Center02-23-2023 History of Present illness Narrative* Ita Tuttle MD - 10/17/2022 3:30 PM EST Images from the original note were not included. [facility] [place] Sissy Zepeda Department of Cardiovascular Medicine SECTION OF REGIONAL CARDIOLOGY OUTPATIENT VISIT DATE October 17, 2022 OUTPATIENT VISIT TYPE Established HISTORY OF PRESENT ILLNESS: Darius Valera is a 62 year old male here today for follow up from [place], [place]. Has h/o AF s/p ablation, HTN, DMITRY, tachycardia induced CMP, and CHF. On Eliquis, Nifedipine XL, Valsartan/HCTZ added on Doxazosin. Sotalol was discontinued. He followedbefore with a local health care marketing manager Dr Hooks. Since last visit denies [...] MG - S/p DCC by his local health care marketing manager (Dr Castle) and subsequent ablation by [...] needed. This note was partially generated using [employer] voice recognition system, and there may be some incorrect words, spellings, and punctuation that were not noted in checking the note before saving. Bill Tuttle M.D., Miguel CONTACT INFORMATION: Bill Tuttle M.D., Miguel. Staff Research Epidemiologist Timothy Diaz [facility] Mail Code AVW2-1 [address] [place] [address] CC: To use this Smartlink, specify the provider ID whose address you want to display, e.g., .PROVADDR[1 (where 1 is the provider ID). documented in this encounterUniversity Hospitals Cleveland Medical Center02-23-2023 Miscellaneous Notes* Telephone Encounter - [...] Busby - 10/16/2022 4:19 PM EST Local [facility] 10 day supply Patient has not received it through mail yet, Today was his last pill, is it possible to do a shortterm refill so he does not miss a dose. Has an appointment tomorrow with us but is requesting to have filled tonight. documented in this encounterUniversity Hospitals Cleveland Medical Center02-20-2023 Miscellaneous Notes* Telephone Encounter - [...] - 1.4 mg/dL Final documented in this encounterUniversity Hospitals Cleveland Medical Center02-13-2023 Miscellaneous Notes* Telephone Encounter - [...] - 1.4 mg/dL Final documented in this encounterUniversity Hospitals Cleveland Medical Center01-20-2023 History of Present illness Narrative* Ita Tuttle MD - 09/13/2022 3:30 PM EST Images from the original note were not included. [facility] [place] Sissy Zepeda Department of Cardiovascular Medicine SECTION OF REGIONAL CARDIOLOGY OUTPATIENT VISIT DATE September 13, 2022 OUTPATIENT VISIT TYPE Established HISTORY OF PRESENT ILLNESS: Darius Valera is a 61 year old male here today for follow up from [place], [place]. Has h/o AF s/p ablation, HTN, DMITRY, tachycardia induced CMP, and CHF. On Eliquis, Nifedipine XL, Valsartan/HCTZ. Sotalol was discontinued. He followed before with a local health care marketing manager Dr Hooks. Since last visit denies [...] or gallop. No parasternal heave or thrill. [place] not displaced. LUNGS: clear to auscultation, no [...] daily - S/p DCC by his local health care marketing manager (Dr Castle) and subsequent ablation by [...] needed. This note was partially generated using [employer] voice recognition system, and there may be some incorrect words, spellings, and punctuation that were not noted in checking the note before saving. Bill Tuttle M.D., F.A.C.C CONTACT INFORMATION: Bill Tuttle M.D., F.A.C.C. Staff Research Epidemiologist Timothy Diaz [facility] Mail Code AVW2-[address] [place] [address] CC: To use this Smartlink, specify the provider ID whose address you want to display, e.g., .PROVADDR[1 (where 1 is the provider ID). documented in this encounterUniversity Hospitals Cleveland Medical Center12-09-2022 Miscellaneous Notes* Telephone Encounter - [...] a day. Thanks TD documented in this encounterUniversity Hospitals Cleveland Medical Center12-09-2022 Miscellaneous Notes* Telephone Encounter - [...] a day. Thanks TD documented in this encounterUniversity Hospitals Cleveland Medical Center12-08-2022 History of Present illness Narrative* [...] BP readings, which have frequently been in [id number]. ACTIVE PROBLEM LIST Atrial Fibrillation, Persistent (Hcc) [...] follow-up with me in about 6 m onths. If he has no further recurrences of A. fib after that, he can follow-up with me as needed. Hiren Sena MD CC - Bill Tuttle MD This clinical note has been produced using speech recognition software and may contain errors related to that system including grammar, punctuation, spelling, gender and words and phrases that may beinappropriate. documented in this encounterUniversity Hospitals Cleveland Medical Center09-16-2022 History of Present illness Narrative* Ita Tuttle MD - 05/10/2022 3:03 PM EDT Images from the original note were not included. [facility] [place] Sissy Zepeda Department of Cardiovascular Medicine SECTION OF REGIONAL CARDIOLOGY OUTPATIENT VISIT DATE May 10, 2022 OUTPATIENT VISIT TYPE Established HISTORY OF PRESENT ILLNESS: Darius Valera is a 61 year old male here today for follow up from [place]. Has h/o AF s/p ablation, HTN, DMITRY, tachycardia induced CMP, and CHF. On Eliquis, Nifedipine XL, Valsartan/HCTZ, Lasix, Potassium chloride. Sotalol was discontinued. He followed before with a local health care marketing manager Dr Hooks. He reported that he was [...] or gallop. No parasternal heave or thrill. [place] not displaced. LUNGS: clear to auscultation, no [...] Nifedipine - S/p DCC by his local health care marketing manager (Dr Castle) and subsequent ablation by [...] needed. This note was partially generated using [employer] voice recognition system, and there may be some incorrect words, spellings, and punctuation that were not noted in checking the note before saving. Bill Tuttle M.D., Miguel CONTACT INFORMATION: Bill Tuttle M.D., Miguel. Staff Research Epidemiologist Timothy Diaz [facility] Mail Code AVW2-1 [address] [place] [address] CC: To use this Smartlink, specify the provider ID whose address you want to display, e.g., .PROVADDR[1 (where 1 is the provider ID). documented in this encounterUniversity Hospitals Cleveland Medical Center08-19-2022 History of Present illness Narrative* Bridget Hudson - 04/12/2022 2:39 PM EDT Waiting for LALO for program status/follow up documented in this encounterUniversity Hospitals Cleveland Medical Center08-04-2022 History of Present illness Narrative* Ita Tuttle MD - 03/28/2022 3:00 PM EDT Images from the original note were not included. [facility] [place] Sissy Zepeda Department of Cardiovascular Medicine SECTION OF REGIONAL CARDIOLOGY OUTPATIENT VISIT DATE March 28, 2022 OUTPATIENT VISIT TYPE Established HISTORY OF PRESENT ILLNESS: Darius Valera is a 61 year old male here today for follow up from [place], [place]. Has h/o AF, HTN, DMITRY, tachycardia induced CMP, and CHF. On Eliquis, Nifedipine XL, Valsartan/HCTZ, Lasix, Potassium chloride, and Sotalol. He followed before with a local health care marketing manager Dr Hooks. He reported that he was [...] or gallop. No parasternal heave or thrill. [place] not displaced. LUNGS: clear to auscultation, no [...] Nifedipine - S/p DCC by his local health care marketing manager (Dr Castle) and subsequent ablation by [...] lipids This note was partially generated using [employer] voice recognition system, and there may be some incorrect words, spellings, and punctuation that were not noted in checking the note before saving. Bill Tuttle M.D., F.Jooj.C.C CONTACT INFORMATION: Bill Tuttle M.D., F.A.C.C. Staff Research Epidemiologist Timothy Hdz [facility] Mail Code AVW2-1 [address] [place] [address] CC: To use this Smartlink, specify the provider ID whose address you want to display, e.g., .PROVADDR[1 (where 1 is the provider ID). documented in this encounterUniversity Hospitals Cleveland Medical Center08-02-2022 History of Present illness Narrative* Bijal Jackson PA-C - 03/26/2022 1:40 PM EDT Incidental Lung Nodule Enrollment Call attempt: 1st Attempt Call status: Complete Enrolled in Lung Nodule program: Yes Lung Nodule outreach: Enrolled Lung Nodule Program [place] Patient has already discussed lung nodule with his health care marketing manager, who placed a consult to lung nodule clinic. He is scheduled to see Lilo Moody later this month. documented in this encounterUniversity Hospitals Cleveland Medical Center07-29-2022 History of Present illness Narrative* Barbara Mccloud APRN.CNP - 03/22/2022 9:59 AM EDT Images from the original note were not included. [facility] [place] Sissy Zepeda Department of Cardiovascular Medicine SECTION [...] success off AAD Not applicable Barbara Mccloud APRN.PANEL GLUER Pulmonary CT scan 03/22/2022: IMPRESSION: 1. Normal [...] INFORMATION: Barbara Mccloud APRN.CNP documented in this encounterUniversity Hospitals Cleveland Medical Center07-29-2022 History of Present illness Narrative* RT Salome(R) [...] 2022 TIME: 8:50 AM documented in this encounterUniversity Hospitals Cleveland Medical Center05-19-2022 Miscellaneous Notes* Telephone Encounter - [...] Britney Gamboa APRN.CNP, DNP documented in this encounterUniversity Hospitals Cleveland Medical Center04-29-2022 Miscellaneous Notes* Telephone Encounter - Yara Rubin RN - 12/21/2021 4:03 PM EDT Closing encounter see encounter note as below: RX INSTRUCTIONS: Patient aware RX will be sent to pharmacy. No need to notify patient. Alicia Chavarria documented in this encounterUniversity Hospitals Cleveland Medical Center04-29-2022 Miscellaneous Notes* Telephone Encounter - Ran Driver [...] notify patient. Alicia Chavarria documented in this encounterUniversity Hospitals Cleveland Medical Center04-28-2022 Miscellaneous Notes* Telephone Encounter - Uyen Martinez RN - 12/20/2021 3:45 PM EDT Pt in for office visit with Dr. Tuttle today. Requesting long term acute care registered nurse refills on all meds from mail away pharmacy, including sotalol. Pt had ablation on 12/03/21. Please sign refill of sotalol if appropriate. Thanks documented in this encounterUniversity Hospitals Cleveland Medical Center04-14-2022 Miscellaneous Notes* Telephone Encounter - Uyen Allison RN - 12/06/2021 4:34 PM EDT Completed form given to admin to fax and upload. Uyen Allison RN * Telephone Encounter - Tayla Burrell - 12/06/2021 1:11 PM EDT Received FMLA paper work today and left on nurses desk to complete. I also uploaded documents to [employer] * Telephone Encounter - Elida Abarca - 12/06/2021 10:49 AM EDT Please contact patient regarding BackOpshart message. documented in this encounterUniversity Hospitals Cleveland Medical Center04-13-2022 Miscellaneous Notes* Telephone Encounter - [...] he has no improvement by Friday, to [facility] for evaluation. Patient verbalized understanding. I asked him to call the office with any updates. Barbara Mccloud APRN.CNP documented in this encounterUniversity Hospitals Cleveland Medical Center04-13-2022 Miscellaneous Notes* Telephone Encounter - Cammy Fay RN - 12/05/2021 3:55 PM EDT [facility] Contact Center Inbound Phone Encounter DATE of SERVICE: 12/05/2021 TIME of SERVICE: 3:55 PM Status: Non-urgent, needs attention Service/Provider: EP/JAMIE Garvey M.D. Reason for call: Pain Contact information: [phone] [facility] Comments: Pt states that he is having pain in his bilat upper chest, I can not even lay down . He is taking tylenol and it is not working. He wants to know if he can take something else? Please callto discuss. Cammy Fay RN Date of Resolution: 12/05/2021 Time of Resolution 3:55 PM documented in this encounterUniversity Hospitals Cleveland Medical Center04-13-2022 Miscellaneous Notes* Telephone Encounter - Elida Abarca - 12/05/2021 3:41 PM EDT Please contact patient regarding MyChart message. * Telephone Encounter - DARIO Jose - 12/05/2021 1:49 PM EDT Patients calling. Patients workplace did not receive [facility] paperwork & patient is needing a return to work date. Please advise [phone] documented in this [facility]04-12-2022 History of Present illness Narrative* Tammy Mendoza - 12/04/2021 11:12 AM EDT TRANSMITTER INSTRUCTIONS Patient Name: Darius Valera [facility] Number: [id number] Fresh battery inserted in monitor Baseline recording not completed Patient instructed 1.) Scheduled and Symptomatic recording instructions 2.) Usage of event button and/or transmission instructions 3.) Maintenance and care of monitor 4.) Landline availability 5.) Return unit at the end of prescribed order 6.) Call with problems [phone] OR [phone] Patient expresses good verbal understanding of instructions Tammy Mendoza documented in this [facility]04-08-2022 History of Present illness Narrative* Griselda [...] discussed with Physician, nurse practitioner or Physician purchasing assistant upon discharge Instructions for transmitting EKG to Monitoring Center 3 month follow up instructions Contact number for information and questions Patient Evaluation: Verbalizes understanding Follow Up Plan: Follow up as directed by MD. Supplemental Material Given: Written Material Patient education regarding radiation exposure. Instructed By Griselda Felder RN, RN. In Department of CARDIOLOGY. documented in this encounterOhio[facility]* Diagnosis AF (paroxysmal atrial fibrillation) (HCC)- Primary Atrial fibrillation documented in this encounter [facility] note* Diagnosis Persistent atrial fibrillation (HCC) Atrial fibrillation documented in this [facility] note* Diagnosis Atrial fibrillation, persistent (HCC)- Primary Atrial fibrillation documented in this encounter [facility] note* Diagnosis Atrial fibrillation, persistent (HCC) Atrial fibrillation Benign essential HTN Essential hypertension, benign documented in this encounter [facility] note* Diagnosis Atrial fibrillation, persistent (HCC) Atrial fibrillation Benign essential HTN Essential hypertension, benign Hypertension, unspecified type documented in this encounter [facility] note* Diagnosis Atrial fibrillation, persistent (HCC)- Primary Atrial fibrillation Lung nodule Solitary pulmonary nodule DMITRY (obstructive sleep apnea) Obstructive sleep apnea (adult) (pediatric) documented in this encounter [facility] note* Diagnosis Persistent atrial fibrillation (HCC) Atrial fibrillation documented in this encounter [facility] note* Diagnosis Lung nodule- Primary Solitary pulmonary nodule documented in this encounter [facility]* Diagnosis Atherosclerosis- Primary Generalized and unspecified atherosclerosis Ascending aorta dilatation (HCC) Thoracic aortic ectasia Tachycardia induced cardiomyopathy (HCC) Tachycardia, unspecified documented in this encounter [facility] note* Diagnosis Tachycardia induced cardiomyopathy (HCC)- Primary Tachycardia, unspecified documented in this encounter [facility] note* Diagnosis Atrial fibrillation, persistent (HCC)- Primary Atrial fibrillation Hypertension, unspecified type DMITRY (obstructive sleep apnea) Obstructive sleep apnea (adult) (pediatric) Benign essential HTN Essential hypertension, benign S/P ablation of atrial fibrillation Other postprocedural status Encounter for current long-term use of anticoagulants Long-term (current) use of anticoagulants documented in this encounter [facility] note* Diagnosis Hypertension, unspecified type- Primary documented in this encounter [facility]* Diagnosis Hypertension, unspecified type documented in this encounter [facility]* Diagnosis Medication refill [Z76.0 (ICD-10-CM)]- Primary Issue of repeat prescriptions Hypertension, unspecified type documented in this encounter [facility]* Diagnosis Hypertension, unspecified type- Primary documented in this encounter [facility] note* Diagnosis Atrial fibrillation, persistent (HCC) Atrial fibrillation Benign essential HTN Essential hypertension, benign documented in this encounter [facility] note* Diagnosis Hypertension, unspecified type- Primary Aortic root dilatation (HCC) Thoracic aortic ectasia documented in this encounter [facility] note* Diagnosis Hypertension, unspecified type documented in this encounter [facility] noteNo assessment information availableGrant Hospital Work Phone: Evaluation note* Diagnosis Paroxysmal atrial fibrillation (HCC)- Primary Atrial fibrillation Atrial fibrillation, persistent (HCC) Atrial fibrillation Benign essential HTN Essential hypertension, benign Hypertension, unspecified type Prescription refill Issue of repeat prescriptions Tachycardia induced cardiomyopathy (HCC) Tachycardia, unspecified Aortic root dilatation (HCC) Thoracic aortic ectasia documented in this encounter [facility] note* Diagnosis Onset Date Resolution Status Lymphocytosis acute [facility] Work Phone: Evaluation note* Diagnosis Screening for malignant neoplasm of colon- Primary [facility]* Diagnosis Tear of medial meniscus of right knee, current, unspecified tear type, subsequent encounter- Primary documented in this encounter [facility]* Diagnosis Strain of thoracic back region- Primary Muscle spasm Spasm of muscle [facility]* Diagnosis Strain of thoracic back region- Primary Muscle spasm Spasm of muscle [facility]* Diagnosis Pre-op testing Unspecified pre-operative examination [facility]* Diagnosis History of colon polyps- Primary Screening for malignant neoplasm of colon documented in this encounter [facility]* Diagnosis S/P right knee arthroscopy- Primary documented in this encounter [facility]* Diagnosis Acute non-recurrent maxillary sinusitis- Primary [facility]* Diagnosis Primary hypertension- Primary Unspecified essential hypertension PAF (paroxysmal atrial fibrillation) (HCC) Atrial fibrillation Coronary artery calcification Coronary atherosclerosis of unspecified type of vessel, [place] or graft documented in this encounter [facility]* Diagnosis Prescription refill- Primary Issue of repeat prescriptions documented in this encounter [facility]* Diagnosis Left hand pain- Primary Pain in soft tissues of limb S/P right knee arthroscopy Right knee pain, unspecified chronicity [facility]* Diagnosis S/P right knee arthroscopy- Primary [facility]* Diagnosis Hypertension, unspecified type documented in [facility]* Diagnosis Wellness examination- Primary Muscle [...] neoplasm of prostate [facility]* Diagnosis PAF (paroxysmal atrial fibrillation) (HCC)- Primary Atrial fibrillation Atrial fibrillation, persistent (HCC) Atrial fibrillation Benign essential HTN Essential hypertension, benign Hypertension, unspecified type Tachycardia induced cardiomyopathy (HCC) Tachycardia, unspecified documented in this encounter [facility] Medical CenterHistory of Present illness Narrative* Here [...] 4. Arrangements for cardioversion will be made [facility] 250 DO Work Phone: History of Present [...] 4. Arrangements for cardioversion will be made [facility] Work Phone: History of Present illness Narrative* [...] 4. Arrangements for cardioversion will be made [facility] Work Phone: History of Present illness Narrative* [...] his primary care provider. documented in this encounterNORanken Jordan Pediatric Specialty HospitalReason for referral (narrative)* Outpatient Procedure (Routine) - Pending ReviewSpecialtyDiagnoses / Procedures Referred By ContactReferred To [facility] Diagnoses Persistent atrial fibrillation (HCC) Procedures ECG COMPLETE ECG ROUTINE ECG W/LEAST 12 LDS W/I&R 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 APRN.CNP [address] [place] [address] [facility] [place] [address] [place] [address] Referral IDStatusReasonStart DateExpiration DateVisits RequestedVisits [id number] Review Auto-Generated Referral / * MRI/CT (Routine) - Pending ReviewSpecialtyDiagnoses / ProceduresReferred By ContactRefmercyed To [facility] Diagnoses Persistent atrial fibrillation (HCC) Procedures CT PULMONARY VEIN W IVCON CT HEART CONTRAST EVAL CARDIAC STRUCTURE&MORPH 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 APRN.CNP [address] [place] [address] Ct Imaging Referral IDStatusReasonStart DateExpiration DateVisits RequestedVisits [id number] Review Auto-Generated Referral * Outpatient Procedure (Routine) - Pending ReviewSpecialtyDiagnoses / Procedures Referred By ContactReferred To [facility] [place] Diagnoses Persistent atrial fibrillation (HCC) Procedures ECHO ECHO TTHRC R-T 2D W/WOM-MODE COMPL SPEC&COLR D 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 APRN.CNP [address] [facility] [address] [place] [address] [address] [place] [address] Referral IDStatusTessasonStharrison DateExpiration DateVisits RequestedVisits [id number] Review Auto-Generated Referral [facility] for referral (narrative)* Outpatient Procedure (Routine) - ClosedSpecialtyDiagnoses / ProceduresReferred By ContactReferred To [facility] [place] [place] [facility] [place] Diagnoses Atrial fibrillation, persistent (HCC) Procedures ECG COMPLETE ECG ROUTINE ECG W/LEAST 12 LDS W/I&R Hiren Sena MD [address] [place] [address] [address] [place] [address] Referral IDStatus[facility]Red [facility] DateExpiration DateVisits RequestedVisits [id number] Auto-Generated Referral [facility] for referral (narrative)No reason for referral information availableGrant Hospital Work Phone: Summary Purpose Family History [...] Age at Onset Recorded Date/T nalini father [place]'s disease Unknown fatherDeceasedUnknownNot SpecifiedDeceasedUnknownMalignant neoplasmUnknown grandparentMalignant neoplasm of pancreasUnknown Relationship Condition Age at Onset Recorded Date/T nalini father Gene's disease Unknown fatherDeceasedUnknownmotherDeceasedUnknownMalignant neoplasmUnknowngrandparent Malignant neoplasm of [...] Procedures CONSULT TO LUNG NODULE CLINIC OFFICE/OUTPATIENT [facility] 60-74 MINUTES Barbara Mccloud APRN.CNP [address] [place] [id number] Referral IDStatusReasonStart DateExpiration DateVisits RequestedVisits [id number] Review PCP Requested Referral /[id number] / ProceduresReferred By ContactReferred To ContactCT IMAGING Diagnoses Persistent atrial fibrillation (HCC) Procedures CT PULMONARY VEIN W IVCON CT HEART CONTRAST EVAL CARDIAC STRUCTURE&MORPH 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 APRN.PANEL GLUER [address] [place] [address] Ct Imaging Ref[facility] IDStatusT[facility]Red [facility] DateExpiration DateVisits RequestedVisits [id number] Auto-Generated Referral / Chief Complaint and Reason for Visit Chief [...] section and content) DATE CREATED AUTHOR 05/19/2020 [facility] DATE CREATED AUTHOR AUTHOR'S ORGANIZ ATION 06/27/2021 [employer] DATE CREATED AUTHOR AUTHOR'S ORGANIZ ATION 08/30/2021 [facility] DATE CREATED AUTHOR AUTHOR'S ORGANIZ ATION 10/18/2022 [facility] DATE CREATED AUTHOR AUTHOR'S ORGANIZ ATION 01/31/[address] [facility] DATE CREATED AUTHOR AUTHOR'S ORGANIZ ATION 04/11/2023 [facility] DATE CREATED AUTHOR AUTHOR'S ORGANIZ ATION 01/18/2024 [facility] DATE CREATED AUTHOR AUTHOR'S ORGANIZ ATION 03/05/2025 [facility] DATE CREATED AUTHOR AUTHOR'S ORGANIZ ATION 03/20/2025 [facility] DATE CREATED AUTHOR AUTHOR'S ORGANIZ ATION 05/30/2025 [facility] DATE CREATED AUTHOR AUTHOR'S ORGANIZ ATION 06/14/2025 [facility] Source Comments (unrecognize d section and content) In the event this informatio n is protected by the Federal Confidentiality of Alcohol and Drug Abuse Patient Records regulations: The Federal rules restrict any use of the information to criminally investigate or prosecute any alcohol or drug abuse patient.[facility] CenterIn the event this information is protected by the Federal Confidentiality of Alcohol and Drug Abuse Patient Records regulations: The Federal rules restrict any use of the information to criminally investigate or prosecute any alcohol or drug abuse patient.[facility] CenterIn the event this information is protected by the Federal Confidentiality of Alcohol and Drug Abuse Patient Records regulations: The Federal rules restrict any use of the information to criminally investigate or prosecute any alcohol or drug abuse patient.[facility] CenterIn the event this information is protected by the Federal Confidentiality of Alcohol and Drug Abuse Patient Records regulations: The Federal rules restrict any use of the information to criminally investigate or prosecute any alcohol or drug abuse patient.[facility] CenterIn the event this information is protected by the Federal Confidentiality of Alcohol and Drug Abuse Patient Records regulations: The Federal rules restrict any use of the information to criminally investigate or prosecute any alcohol or drug abuse patient.[facility] CenterIn the event this information is protected by the Federal Confidentiality of Alcohol and Drug Abuse Patient Records regulations: The Federal rules restrict any use of the information to criminally investigate or prosecute any alcohol or drug abuse patient.[facility] CenterIn the event this information is protected by the Federal Confidentiality of Alcohol and Drug Abuse Patient Records regulations: The Federal rules restrict any use of the information to criminally investigate or prosecute any alcohol or drug abuse patient.[facility] CenterIn the event this information is protected by the Federal Confidentiality of Alcohol and Drug Abuse Patient Records regulations: The Federal rules restrict any use of the information to criminally investigate or prosecute any alcohol or drug abuse patient.[facility] CenterIn the event this information is protected by the Federal Confidentiality of Alcohol and Drug Abuse Patient Records regulations: The Federal rules restrict any use of the information to criminally investigate or prosecute any alcohol or drug abuse patient.[facility] CenterIn the event this information is protected by the Federal Confidentiality of Alcohol and Drug Abuse Patient Records regulations: The Federal rules restrict any use of the information to criminally investigate or prosecute any alcohol or drug abuse patient.[facility] CenterIn the event this information is protected by the Federal Confidentiality of Alcohol and Drug Abuse Patient Records regulations: The Federal rules restrict any use of the information to criminally investigate or prosecute any alcohol or drug abuse patient.[facility] CenterIn the event this information is protected by the Federal Confidentiality of Alcohol and Drug Abuse Patient Records regulations: The Federal rules restrict any use of the information to criminally investigate or prosecute any alcohol or drug abuse patient.[facility] CenterIn the event this information is protected by the Federal Confidentiality of Alcohol and Drug Abuse Patient Records regulations: The Federal rules restrict any use of the information to criminally investigate or prosecute any alcohol or drug abuse patient.[facility] CenterIn the event this information is protected by the Federal Confidentiality of Alcohol and Drug Abuse Patient Records regulations: The Federal rules restrict any use of the information to criminally investigate or prosecute any alcohol or drug abuse patient.[facility] CenterIn the event this information is protected by the Federal Confidentiality of Alcohol and Drug Abuse Patient Records regulations: The Federal rules restrict any use of the information to criminally investigate or prosecute any alcohol or drug abuse patient.[facility] CenterIn the event this information is protected by the Federal Confidentiality of Alcohol and Drug Abuse Patient Records regulations: The Federal rules restrict any use of the information to criminally investigate or prosecute any alcohol or drug abuse patient.[facility] CenterIn the event this information is protected by the Federal Confidentiality of Alcohol and Drug Abuse Patient Records regulations: The Federal rules restrict any use of the information to criminally investigate or prosecute any alcohol or drug abuse patient.[facility] CenterIn the event this information is protected by the Federal Confidentiality of Alcohol and Drug Abuse Patient Records regulations: The Federal rules restrict any use of the information to criminally investigate or prosecute any alcohol or drug abuse patient.[facility] CenterIn the event this information is protected by the Federal Confidentiality of Alcohol and Drug Abuse Patient Records regulations: The Federal rules restrict any use of the information to criminally investigate or prosecute any alcohol or drug abuse patient.[facility] CenterIn the event this information is protected by the Federal Confidentiality of Alcohol and Drug Abuse Patient Records regulations: The Federal rules restrict any use of the information to criminally investigate or prosecute any alcohol or drug abuse patient.[facility] CenterIn the event this information is protected by the Federal Confidentiality of Alcohol and Drug Abuse Patient Records regulations: The Federal rules restrict any use of the information to criminally investigate or prosecute any alcohol or drug abuse patient.[facility] CenterIn the event this information is protected by the Federal Confidentiality of Alcohol and Drug Abuse Patient Records regulations: The Federal rules restrict any use of the information to criminally investigate or prosecute any alcohol or drug abuse patient.[facility] CenterIn the event this information is protected by the Federal Confidentiality of Alcohol and Drug Abuse Patient Records regulations: The Federal rules restrict any use of the information to criminally investigate or prosecute any alcohol or drug abuse patient.[facility] CenterIn the event this information is protected by the Federal Confidentiality of Alcohol and Drug Abuse Patient Records regulations: The Federal rules restrict any use of the information to criminally investigate or prosecute any alcohol or drug abuse patient.[facility] CenterIn the event this information is protected by the Federal Confidentiality of Alcohol and Drug Abuse Patient Records regulations: The Federal rules restrict any use of the information to criminally investigate or prosecute any alcohol or drug abuse patient.[facility] CenterIn the event this information is protected by the Federal Confidentiality of Alcohol and Drug Abuse Patient Records regulations: The Federal rules restrict any use of the information to criminally investigate or prosecute any alcohol or drug abuse patient.[facility] CenterIn the event this information is protected by the Federal Confidentiality of Alcohol and Drug Abuse Patient Records regulations: The Federal rules restrict any use of the information to criminally investigate or prosecute any alcohol or drug abuse patient.[facility] CenterIn the event this information is protected by the Federal Confidentiality of Alcohol and Drug Abuse Patient Records regulations: The Federal rules restrict any use of the information to criminally investigate or prosecute any alcohol or drug abuse patient.[facility] CenterIn the event this information is protected by the Federal Confidentiality of Alcohol and Drug Abuse Patient Records regulations: The Federal rules restrict any use of the information to criminally investigate or prosecute any alcohol or drug abuse patient.[facility] CenterIn the event this information is protected by the Federal Confidentiality of Alcohol and Drug Abuse Patient Records regulations: The Federal rules restrict any use of the information to criminally investigate or prosecute any alcohol or drug abuse patient.[facility] CenterIn the event this information is protected by the Federal Confidentiality of Alcohol and Drug Abuse Patient Records regulations: The Federal rules restrict any use of the information to criminally investigate or prosecute any alcohol or drug abuse patient.[facility] CenterIn the event this information is protected by the Federal Confidentiality of Alcohol and Drug Abuse Patient Records regulations: The Federal rules restrict any use of the information to criminally investigate or prosecute any alcohol or drug abuse patient.[facility] CenterIn the event this information is protected by the Federal Confidentiality of Alcohol and Drug Abuse Patient Records regulations: The Federal rules restrict any use of the information to criminally investigate or prosecute any alcohol or drug abuse patient.[facility] CenterIn the event this information is protected by the Federal Confidentiality of Alcohol and Drug Abuse Patient Records regulations: The Federal rules restrict any use of the information to criminally investigate or prosecute any alcohol or drug abuse patient.[facility] CenterIn the event this information is protected by the Federal Confidentiality of Alcohol and Drug Abuse Patient Records regulations: The Federal rules restrict any use of the information to criminally investigate or prosecute any alcohol or drug abuse patient.[facility] CenterIn the event this information is protected by the Federal Confidentiality of Alcohol and Drug Abuse Patient Records regulations: The Federal rules restrict any use of the information to criminally investigate or prosecute any alcohol or drug abuse patient.[facility] CenterIn the event this information is protected by the Federal Confidentiality of Alcohol and Drug Abuse Patient Records regulations: The Federal rules restrict any use of the information to criminally investigate or prosecute any alcohol or drug abuse patient.[facility] CenterIn the event this information is protected by the Federal Confidentiality of Alcohol and Drug Abuse Patient Records regulations: The Federal rules restrict any use of the information to criminally investigate or prosecute any alcohol or drug abuse patient.[facility] CenterIn the event this information is protected by the Federal Confidentiality of Alcohol and Drug Abuse Patient Records regulations: The Federal rules restrict any use of the information to criminally investigate or prosecute any alcohol or drug abuse patient.[facility] CenterIn the event this information is protected by the Federal Confidentiality of Alcohol and Drug Abuse Patient Records regulations: The Federal rules restrict any use of the information to criminally investigate or prosecute any alcohol or drug abuse patient.[facility] CenterIn the event this information is protected by the Federal Confidentiality of Alcohol and Drug Abuse Patient Records regulations: The Federal rules restrict any use of the information to criminally investigate or prosecute any alcohol or drug abuse patient.[facility] CenterIn the event this information is protected by the Federal Confidentiality of Alcohol and Drug Abuse Patient Records regulations: The Federal rules restrict any use of the information to criminally investigate or prosecute any alcohol or drug abuse patient.[facility] CenterIn the event this information is protected by the Federal Confidentiality of Alcohol and Drug Abuse Patient Records regulations: The Federal rules restrict any use of the information to criminally investigate or prosecute any alcohol or drug abuse patient.[facility] CenterIn the event this information is protected by the Federal Confidentiality of Alcohol and Drug Abuse Patient Records regulations: The Federal rules restrict any use of the information to criminally investigate or prosecute any alcohol or drug abuse patient.[facility] CenterIn the event this information is protected by the Federal Confidentiality of Alcohol and Drug Abuse Patient Records regulations: The Federal rules restrict any use of the information to criminally investigate or prosecute any alcohol or drug abuse patient.[facility] CenterIn the event this information is protected by the Federal Confidentiality of Alcohol and Drug Abuse Patient Records regulations: The Federal rules restrict any use of the information to criminally investigate or prosecute any alcohol or drug abuse patient.[facility] CenterIn the event this information is protected by the Federal Confidentiality of Alcohol and Drug Abuse Patient Records regulations: The Federal rules restrict any use of the information to criminally investigate or prosecute any alcohol or drug abuse patient.[facility] CenterIn the event this information is protected by the Federal Confidentiality of Alcohol and Drug Abuse Patient Records regulations: The Federal rules restrict any use of the information to criminally investigate or prosecute any alcohol or drug abuse patient.[facility] CenterIn the event this information is protected by the Federal Confidentiality of Alcohol and Drug Abuse Patient Records regulations: The Federal rules restrict any use of the information to criminally investigate or prosecute any alcohol or drug abuse patient.[facility] CenterIn the event this information is protected by the Federal Confidentiality of Alcohol and Drug Abuse Patient Records regulations: The Federal rules restrict any use of the information to criminally investigate or prosecute any alcohol or drug abuse patient.[facility] CenterIn the event this information is protected by the Federal Confidentiality of Alcohol and Drug Abuse Patient Records regulations: The Federal rules restrict any use of the information to criminally investigate or prosecute any alcohol or drug abuse patient.[facility] CenterIn the event this information is protected by the Federal Confidentiality of Alcohol and Drug Abuse Patient Records regulations: The Federal rules restrict any use of the information to criminally investigate or prosecute any alcohol or drug abuse patient.[facility] CenterIn the event this information is protected by the Federal Confidentiality of Alcohol and Drug Abuse Patient Records regulations: The Federal rules restrict any use of the information to criminally investigate or prosecute any alcohol or drug abuse patient.[facility] CenterIn the event this information is protected by the Federal Confidentiality of Alcohol and Drug Abuse Patient Records regulations: The Federal rules restrict any use of the information to criminally investigate or prosecute any alcohol or drug abuse patient.[facility] CenterIn the event this information is protected by the Federal Confidentiality of Alcohol and Drug Abuse Patient Records regulations: The Federal rules restrict any use of the information to criminally investigate or prosecute any alcohol or drug abuse patient.[facility] CenterIn the event this information is protected by the Federal Confidentiality of Alcohol and Drug Abuse Patient Records regulations: The Federal rules restrict any use of the information to criminally investigate or prosecute any alcohol or drug abuse patient.[facility] CenterIn the event this information is protected by the Federal Confidentiality of Alcohol and Drug Abuse Patient Records regulations: The Federal rules restrict any use of the information to criminally investigate or prosecute any alcohol or drug abuse patient.[facility] CenterIn the event this information is protected by the Federal Confidentiality of Alcohol and Drug Abuse Patient Records regulations: The Federal rules restrict any use of the information to criminally investigate or prosecute any alcohol or drug abuse patient.[facility] CenterIn the event this information is protected by the Federal Confidentiality of Alcohol and Drug Abuse Patient Records regulations: The Federal rules restrict any use of the information to criminally investigate or prosecute any alcohol or drug abuse patient.[facility] CenterIn the event this information is protected by the Federal Confidentiality of Alcohol and Drug Abuse Patient Records regulations: The Federal rules restrict any use of the information to criminally investigate or prosecute any alcohol or drug abuse patient.[facility] CenterIn the event this information is protected by the Federal Confidentiality of Alcohol and Drug Abuse Patient Records regulations: The Federal rules restrict any use of the information to criminally investigate or prosecute any alcohol or drug abuse patient.[facility] CenterIn the event this information is protected by the Federal Confidentiality of Alcohol and Drug Abuse Patient Records regulations: The Federal rules restrict any use of the information to criminally investigate or prosecute any alcohol or drug abuse patient.[facility] CenterIn the event this information is protected by the Federal Confidentiality of Alcohol and Drug Abuse Patient Records regulations: The Federal rules restrict any use of the information to criminally investigate or prosecute any alcohol or drug abuse patient.[facility] CenterIn the event this information is protected by the Federal Confidentiality of Alcohol and Drug Abuse Patient Records regulations: The Federal rules restrict any use of the information to criminally investigate or prosecute any alcohol or drug abuse patient.[facility] CenterIn the event this information is protected by the Federal Confidentiality of Alcohol and Drug Abuse Patient Records regulations: The Federal rules restrict any use of the information to criminally investigate or prosecute any alcohol or drug abuse patient.[facility] CenterIn the event this information is protected by the Federal Confidentiality of Alcohol and Drug Abuse Patient Records regulations: The Federal rules restrict any use of the information to criminally investigate or prosecute any alcohol or drug abuse patient.[facility] CenterIn the event this information is protected by the Federal Confidentiality of Alcohol and Drug Abuse Patient Records regulations: The Federal rules restrict any use of the information to criminally investigate or prosecute any alcohol or drug abuse patient.[facility] Reason for Visit (unrecogniz ed section and content) ReasonCommentsPatient EducationPVIReasonCommentsTransmitter3 monthsReason CommentsPost [place] Program Call - Needs AttnReasonCommentschest discomfort after ablationReasonOnset DateCommentsRefill Wjxaofr23/28/2022ReasonOnset DateComments Refill Gxwddtg91/29/2022ReasonCommentsAtrial FibrillationReasonCommentsRadiology CTSpecialtyDiagnoses / ProceduresReferred By ContactReferred To ContactCT IMAGING Diagnoses Persistent atrial fibrillation (HCC) Procedures CT PULMONARY VEIN W IVCON CT HEART CONTRAST EVAL CARDIAC STRUCTURE&MORPH 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 APRN.PANEL GLUER [address] [place] [address] Ct Imaging Referral IDStatusReasonStart DateExpiration DateVisits RequestedVisits [id number] Auto-Generated Referral /[id number] Patient Follow-Upresults form CT scanReasonCommentsEstablished Patient6 week follow upReasonCommentsCardiology Follow UpReasonCommentsPatient UpdateReasonCommentsResultsReasonComments Cardiology Follow UpReasonCommentsRefill RequestReasonOnset DateCommentsRefill Pzrbphr0410/13/2022ReasonCommentsPatient QuestionReasonCommentsFollow UpReason Ztipmmym9eu po colonoscopyReasonCommentsKnee PainReasonCommentsBack PainReason CommentsConsultScreening colonoscopySpecialtyDiagnoses / ProceduresReferred By ContactReferred To ContactGeneral Surgery Diagnoses Screening for malignant neoplasm of colon Procedures MO OFFICE/OUTPATIENT NEW HIGH MDM 60 MINUTES Linda Jansen, PA [address] [facility] [address] [place] [address] Grace Bucio MD [address] [place] [address] Referral IDStatusReasonStart DateExpiration DateVisits RequestedVisits [id number] Specialty Services Required /[id number] PainPost-opReasonCommentsKnee Pain Post-opPainReasonCommentsPainReasonOnset DateCommentsRefill Nmxwnrv2401/01/2025 Care Teams (unrecognized sec tion and content) Team MemberRelationshipSpecialtyStart [place] [address] [place] [address] Primary Staff PhysicianCardiology03/22/22Team MemberRelationshipSpecialtyStart [place] [address] [place] [address] Primary Staff PhysicianCardiology03/22/22Team MemberRelationshipSpecialtyStart [place] [address] [place] [address] Primary Staff PhysicianCardiology03/22/22Team MemberRelationshipSpecialtyStart DateEnd Date Ita Tuttle [place] [id number] [place] [address] Primary Staff PhysicianCardiology03/22/22Team MemberRelationshipSpecialtyStart DateEnd Date Ita [place]uttle [place] [id number] [place] [address] Primary Staff PhysicianCardiology03/22/22Team MemberRelationshipSpecialtyStart DateEnd Date Ita Tuttle MD [address] [place] [address] Primary Staff PhysicianCardiology03/22/22Team MemberRelationshipSpecialtyStart DateEnd [place]a [place]uttle [place] [id number] [place] [address] Primary Staff PhysicianCardiology03/22/22Team MemberRelationshipSpecialtyStart DateEnd [place]uttle [place] [id number] [place] [address]248 Primary Staff PhysicianCardiology03/22/22Team MemberRelationshipSpecialtyStart DateEnd [place]a Tuttle [place] [id number] [place] [address]689 Primary Staff PhysicianCardiology03/22/22Team MemberRelationshipSpecialtyStart DateEnd [place]uttle [place] [id number] [place] [address] Primary Staff PhysicianCardiology03/22/22Team MemberRelationshipSpecialty[place] [address] [facility] [place] [place] [address] Primary Staff PhysicianCardiology03/22/22Team MemberRelationshipSpecialtyStart [place] [address] [place] [address] Primary Staff PhysicianCardiology03/22/22Team MemberRelationshipSpecialtyStart [place] [address] [place] [address] Primary Staff PhysicianCardiology03/22/22Team MemberRelationshipSpecialtyStart [place] [address] [place] [address] Primary Staff PhysicianCardiology03/22/22Team MemberRelationshipSpecialtyStart DateEnd [place]a Tuttle [place] [id number] [place] [address] Primary Staff PhysicianCardiology03/22/22Team MemberRelationshipSpecialty[place] [address] [place] [address] Primary Staff PhysicianCardiology03/22/22Team MemberRelationshipSpecialtyStart [place] [address] [place] [address] Primary Staff PhysicianCardiology7/29/22Team MemberRelationshipSpecialtyStart [place] [address] [place] [address] Primary Staff PhysicianCardiology03/22/22 Team Status: Active Member Role Status Dates Linda Jansen PA-C Primary Care Provider Active Team Status: Active Member Role Status Dates Sedrick Ye MD Primary Care Provider Active S tart: January 23, 2024 Christian Carlos II, DOAttending ProviderActiveStart: January 23, 2024 Linda Jansen TERMINATION CLERK-CReferring ProviderActiveStart: January 23, 2024 Team Status: Inactive Member Role Status Dates Christian Carlos II, DO Attending Provider Active Start: January 23, 2024 End: January 23, 2024[facility] Care [facility], Referring Provider ActiveStart: January 23, 2024 End: January 23, 2024Team MemberRelationshipSpecialtyStart [place] [address] [place] [address] Primary Staff PhysicianCardiology03/22/22Team MemberRelationshipSpecialtyStart [place] [address] [place] [address] Primary Staff PhysicianCardiology03/22/22 Team Status: Active Member Role Status Dates Sedrick Ye MD Primary Care Provider Active S tart: April 23, 2024 Christian Carlos II, DOAttending ProviderActiveStart: April 23, 2024 Linda Jansen TERMINATION CLERK-CReferring ProviderActiveStart: April 23, 2024 Team Status: Inactive Member Role Status Dates Irene Solares APRN Attending Provider Acti ve Start: April 23, 2024 End: April 23, 2024Team MemberRelationshipSpecialtyStart DateEnd Date Linda Jansen, PA [address] [place] [address] PCP - [facility]08/06/23 Linda Jansen PA [address] [place] [address] PCP - [facility]/Team MemberRelationshipSpecialty Start DateEnd Date Linda Jansen PA [address] [place] [address] PCP - [facility]08/06/23 Linda Jansen PA [address] [place] [address] PCP - [facility]02/23/2312Team MemberRelationshipSpecialty Start DateEnd Date Linda Jansen, PA [address] [place] [address] PCP - [facility]08/06/23 Linda Jansen, PA [address] [place] [address] PCP - [facility]02/23/2312Team MemberRelationshipSpecialty Start DateEnd Date Linda Jansen, PA [address] [place] [address] PCP - [facility]08/06/23 Linda Jansen PA [address] [place] [address] PCP - [facility]02/23/2312Team MemberRelationshipSpecialty Start DateEnd Date Linda Jansen PA [address] [place] [address] [facility] Linda Jansen PA [address] [place] [address] PCP - [facility] [place] [facility]02/23/2312Team MemberRelationshipSpecialty Start DateEnd Date Linda Jansen PA [address] [facility] [address] [place] [address] [facility]06/23 Linda Jansen PA [address] [facility] [address] [place] [address] PCP - [facility]02/23/2312Team MemberRelationshipSpecialty [place] [address] [place], [place] [id number] Primary Staff PhysicianCardiology03/22/22Team MemberRelationshipSpecialtyStart DateEnd Date Linda Jansen PA [address] [place] [address] PCP - [facility]08/06/23 Linda Jansen PA [address] [place] [address] PCP - [facility] [place] [facility]02/23/2312Team MemberRelationshipSpecialty Start DateEnd Date Linda Jansen PA [address] [place] [address] PCP - GeneralFamily Rfmyaiyu96/13/23Team MemberRelationshipSpecialtyStart Date End Date Linda Jansen PA [address] [place] [address] PCP - GeneralFamily Axqjmgkb04/13/23Team MemberRelationshipSpecialtyStart Date End Date Linda Jansen PA [address] [facility] [address] [place] [address] PCP - GeneralFamily Unwohgxs56/13/23Team MemberRelationshipSpecialtyStart Date End Date Linda Jansen PA [address] [place] [address] PCP - GeneralFamily Zmhoyqki99/13/23 Linda Jansen PA [address] [facility] [address] [place] [address] PCP - [facility]02/23/2312Team MemberRelationshipSpecialty [place] [address] [place] [address] Primary Staff PhysicianCardiology03/22/22Team MemberRelationshipSpecialtyStart DateEnd Date Linda Jansen PA [address] [facility] [address] [place] [address] PCP - GeneralFamily Dxveecmb75/13/23 Linda Jansen PA [address] [address] PCP - [facility] [place] [facility]02/23/2312 Team Status: Active Member Role Status Dates NON STAFF Primary Care Provider Active Team Status: Active Member Role Status Dates Sedrick Ye MD Primary Care Provider Active S tart: November 12, 2024 Christian Carlos II, DOAttending ProviderActiveStart: November 12, 2024 Linda Jansen , TERMINATION CLERK-CReferring ProviderActiveStart: November 12, 2024 Team Status: Inactive Member Role Status Dates NON STAFF Primary Care Provider Active Start: November 30, 2024 End: November 30ashleigh Gómez - CHC , DO CHCAttending ProviderActiveStart: November 30, 2024 End: November 30, 2024Team MemberRelationshipSpecialtyStart [place] [address] [place] [address] Primary Staff PhysicianCardiology03/22/22Team MemberRelationshipSpecialtyStart DateEnd Date Linda Jansen PA [address] [place] [address] PCP - GeneralFamily Xnkqnpve30/13/23 Linda Jansen PA [address] [place] [address] PCP - [facility] [place] [facility]02/23/2312Team MemberRelationshipSpecialty Start DateEnd Date Linda Jansen PA [address] [place] [address] PCP - GeneralFamily Avawyugi23/13/23 Linda Jansen PA [address] [address] PCP - [facility] [place] [facility]02/23/2312 Team Status: Active Member Role Status Dates Linda Jansen TERMINATION CLERK-C Primary Care Provider Active Team Status: Inactive Member Role Status Dates Christian Carlos II, DO Attending Provider Active Start: January 21, 2025 End: January 21, 2025Linda Jansen TERMINATION CLERK-CPrimary Care ProviderActiveStart: January 21, 2025 End: January 21, 2025Linda Jansen TERMINATION CLERK-CReferring ProviderActiveStart: January 21, 2025 Team Status: Inactive Member Role Status Dates Linda Jansen TERMINATION CLERK-C Primary Care Provider Active Start: February 10, 2025 End: February 10, 2025Christian Carlos II, Attending ProviderActiveStart: February 10, 2025 End: February 10, 2025 Team Status: Inactive Member Role Status Dates Linda Jansen TERMINATION CLERK-C Primary Care Provider Active Start: February 19, 2025 End: February 19, 2025Clair Msos ProviderActiveStart: February 19, 2025 End: February 19, 2025Team MemberRelationshipSpecialtyStart DateEnd Date Linda Jansen PA [address] [address] [facility] Hxtxmxng63/13/23 Linda Jansen PA [address] [address] PCP - [facility] [place] [facility]02/23/2312 Team Status: Inactive Member Role Status Dates Christian Carlos II, DO Attending Provider Active Start: January 21, 2025 End: January 21, 2025Linda Jansen TERMINATION CLERK-CPrimary Care ProviderActiveStart: January 21, 2025 End: January 21, 2025 Team Status: Inactive Member Role Status Dates Linda Jansen TERMINATION CLERK-C Primary Care Provider Active Start: March 04, 2025 End: March 04, 2025Christian Carlos II, DOAttending ProviderActiveStart: March 04, 2025 End: March 04, 2025 Team Status: Active Member Role Status Dates Sedrick Ye MD Primary Care Provider Active S tart: March 04, 2025 Christian Carlos II, DOAttending ProviderActiveStart: March 04, 2025 Linda Jansen NP-CReferring ProviderActiveStart: March 04, 2025 Team MemberRelationshipSpecialtyStart [place] [address] [place] [address] Primary Staff PhysicianCardiology03/22/22Team MemberRelationshipSpecialtyStart DateEnd Date Linda Jansen PA [address] [address] [facility] - [facility] Cgqntfsy66/13/23Team MemberRelationshipSpecialtyStart Date End Date Linda Jansen PA [address] [address] [facility] - [facility] Dsttznzz60/13/23Team MemberRelationshipSpecialtyStart Date End Date Linda Jansen PA [address] [address] PCP - GeneralFamily Xuajwxbu05/13/23 Team Status: Inactive Member Role Status Dates NENO [place] Primary Care Provider Active Start: May 13, 2025 End: May 13martir Daily NP-CAttending ProviderActiveStart: May 13, 2025 End: May 13, 2025 Team Status: Active Member Role Status Dates NENO [place] Primary Care Provider Active Start: May 13, 2025 Christian Goldowicz II, DOAttending ProviderActiveStart: May 13, 2025 Team Status: Active Member Role Status Dates Christian Carlos II, DO Attending Provider Active Start: May 13, 2025 Linda Olmedojhonatan , TERMINATION CLERK-CPrimary Care ProviderActiveStart: May 13, 2025 Linda Jansen , TERMINATION CLERK-CReferring ProviderActiveStart: May 13, 2025 Team Status: Inactive Member Role Status Dates Linda Jansen TERMINATION CLERK-C Primary Care Provider Active Start: May 27, 2025 End: May 27, 2025Keithmoise Carlos II, DOAttending ProviderActiveStart: May 27, 2025 End: May 27, 2025 Team Status: Active Member Role Status Dates Christian Carlos II DO Attending Provider Active Start: May 27, 2025 Linda Jasnen TERMINATION CLERK-CPrimary Care ProviderActiveStart: May 27, 2025 Linda Olmedojhonatan TERMINATION CLERK-CReferring ProviderActiveStart: May 27, 2025 Team MemberRelationshipSpecialtyStart DateEnd Date Linda Jansen PA [address] [facility] [address] [place] [address] [facility] Zlezlmgc84/13/23 Linda Jansen PA [address] [facility] [address] [place] [address] PCP - [facility] Goals (unrecognized section and content) Goals may [...] BE BASED ON THE PRIMARY CLINICAL RECORDS. [employer] [facility]. provides no warranty or guarantee of the accuracy or completeness of information in this document.
--- OUTSIDE RECORDS SUMMARY | 2025-07-07 06:21 | XMS_ITS | Patient Health Record ---
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) Activeconfirmed Plan Of Treatment No Information Insurance Providers Payer Name Payer Address Payer Phone Subscriber Number Group Number Insured Name Patient Relationship to Insured Coverage Start Date Coverage End Date [employer] [address] [place] [id number] 2022 Yuri Shine Self - patient is the insured Medical (General) History Medical History History ICD Code Essential (primary) hypertension I10 Kidney Stone Surgical History Surgery Date(Month/Year) Kidney Stone Removal 05/17 Hospitalization History Reason Date(Month/Year) see above
--- OUTSIDE RECORDS SUMMARY | 2025-07-07 06:21 | XMS_ITS | Clinical Summary ---
Author Organization [facility] Address [address] [place] [address] Phone Care Team Providers Care Continuous Miner Name Role Phone Vivien Ye MD Primary Care Provider [phone] Social History Tobacco UseTypesPacks/DayYears UsedDateSmoking Tobacco: Never AssessedSex and Gender InformationValueDate RecordedSex Assigned at BirthNot on fileLegal Sex Male07/19/2022 8:47 AM ESTGender IdentityNot on fileSexual OrientationNot on file Last Filed Vital Signs Vital SignReadingTime TakenCommentsBlood Zsnkiymp209/8401 2:04 PM EST Rrlta321309/12/2021 2:04 PM ESTTemperature--Respiratory Rate--Oxygen Saturation-- Inhaled Oxygen Concentration--Kzygrg21.1 kg (203 lb)09/12/2021 2:04 PM ESTHeight 182.9 cm (6')09/12/2021 2:04 PM ESTBody Mass Index27.5301 2:04 PM EST Plan of Treatment Not on file Care Teams Team MemberRelationshipSpecialtyStart DateEnd Date Vivien Ye MD [address] [place] [address] PCP - General03/22/20
--- OUTSIDE RECORDS SUMMARY | 2025-07-07 06:21 | XMS_ITS | Clinical Summary ---
Author Organization [employer] tem Address [facility]-[id number] [address] [place] [address] Care Team Providers Care Telecommunications Cable Jointer Name Role Phone Unavailable Primary Care Provider Unavailabl e Social History Tobacco UseTypesPacks/DayYears UsedDateSmoking Tobacco: Never AssessedChildcare AnswerDate BozamljpGpghcpzjoTurkhqt98/12/2019EmploymentAnswerDate Recorded JyptgjxbqsHcbxtre65/12/2019Sex and Gender InformationValueDate RecordedSex Assigned at BirthNot on fileLegal TngFwsz4003/30/2015 11:55 AM EDTGender Identity Not on fileSexual OrientationNot on file Plan of Treatment Health MaintenanceDue DateLast DoneCommentsDepression Rwtumjxwn70/27/1972Tobacco Amysozlhz75/27/1972Adult BMI Fyermqexg44/27/1978DTaP,Tdap and Td Vaccines (1 - Tdap)1978Zoster (Shingles) Vaccine (1 of 2)2009Fall Risk Screening 2024Influenza Bcemurj89/, 05/25/2019, 06/10/2018RSV ( or age 60+ yrs) (1 - 1-dose 75+ series)2034 [employer] [place] [address]
--- OUTSIDE RECORDS SUMMARY | 2025-07-07 06:21 | XMS_ITS | Clinical Summary ---
Author Organization [facility] Healthcare Address [address] [place] [address] Care Team Providers Care Senior Loan Officer Name Role Phone Linda Jansen Primary Care Provider [phone] Allergies No known active allergies Medications MedicationSigDispense QuantityRefillsLast FilledStart DateEnd DateStatus NIFEdipine CC (Adalat CC) 30 MG 24 hr tablet Take 30 mg by mouth in the morning. Take before meals. Do not crush, chew, or split.Active doxazosin (Cardura) 4 MG tablet Take 1 tablet by mouth at wngpqsz4005/25/2023ctive nebivolol (Bystolic) 5 MG tablet Take 5 [...] osteoarthritis, unspecified ankle and foot03/01/2025History of colon wjctel0405/21/2024rteriosclerotic vascular disease 02/09/2024Erectile /17/2024Lung thamkg2402/09/2024History of zbksokgfcpmfxvj08/17/2024History of COVID-19002/09/2024Other thrombophilia ([facility])02/09/2024Thoracic aortic ntkbasi1802/09/20240818Lbohuthlpbdgg92/10/2024 Primary npliydzvqbaw30/12/2023Sleep apnea08/05/2023ONV (postoperative nausea and vomiting)12/03/2021 Resolved Problems ProblemNoted DateDiagnosed DateResolved CbtfGfhllzgsjhadbs14/17/202407/03/2025 Cmopulf09/Screening for colorectal qixabs62/ Ycwazkkbdayawc95/17/202407/03/2025Ureteral stone/OVID-19 /Mixed niencgzfbpvjco99/12/202310/trial fibrillation /0638Aoeyxbeksrgqjr65/21/202306/Kidney stone04/14/2023 02/09/2024 Encounters DateTypeDepartmentCare JsfuLljeqartran98/31/2025Clinisync Result Encounter NOMS External Department Unsolicited Provider, Generic External Data 06/08/2025linisync Result Encounter NOMS External Department Unsolicited Provider, Generic External Data 05/30/2025bstract [facility] [address] [facility] [address] [place] [phone] Linda Jansen PA 05/26/2025linisync Result Encounter NOMS External Department Unsolicited Provider, Generic External Data 05/19/2025linisync Result Encounter NOMS External Department Unsolicited Provider, Generic External Data 05/17/2025bstract NOMS [facility] [address] [facility] [address] [place] [phone] Linda Jansen PA 05/16/2025linisync Result Encounter NOMS External Department Unsolicited Provider, Generic External Data 05/13/2025bstract N[facility]S [facility] [address] [facility] [address] [place] [phone] Linda Jansen PA 05/12/2025External Result Encounter NOMS External Department Unsolicited Adamowicz, Christian J, DO 05/12/2025External Result Encounter NOMS External Department Unsolicited Christian Carlos, DO 05/12/2025External Result Encounter NOMS External Department Unsolicited Christian Carlos, DO 05/12/2025External Result Encounter NOMS External Department Unsolicited Christian Carlos, DO 05/09/2025linisync Result Encounter NOMS External Department Unsolicited Provider, Generic External Data from Last 3 Months Immunizations ImmunizationAdministration DatesNext DueHep B, adult01/29/2005,08/28/2004, 07/24/2004Influenza, injectable, quadrivalent, preservative free07/20/2022, 06/10/2019,06/10/2018Influenza, seasonal, lrohlgfgjr02/01/2019 Family History Medical HistoryRelationNameCommentsCancerMotherDiane AustinRelationNameStatus CommentsMotherDiane Rl [...] times a week08/06/2023How often do you attend druze or christianity services?1 to 4 times per year08/06/2023o you belong to any clubs or organizations such as druze groups, unions, fraternal or athletic groups, or [...] at all 08/06/2023HQ-2AnswerDate RecordedPatient Health Questionnaire-2 Score0 03/01/2025[facility] [place] [facility] - Occupational Stress QuestionnaireAnswerDate RecordedDo you feel stress - tense, restless, nervous, or anxious, or unable to sleep at night because yourmind is troubled all the time - these days?Only a wiyfay7708/06/2023Exercise Vital SignAnswerDate Recorded On average, how many [...] Last Filed Vital Signs Vital SignReadingTime TakenCommentsBlood Lsircjmb959/8407 9:26 AM EDT Epwoz7791/08/2025 9:26 AM JFOWyxisyqurfc33.2 ??C (98.9 ??F)11/09/2024 10:32 AM EDTRespiratory Fvbq254503/01/2025 9:26 AM EDTOxygen Nxneurlreb07%03/01/2025 9:26 AM EDTInhaled Oxygen Concentration--Bzflfl17.4 kg (199 lb 6.4 oz)03/01/2025 9:26 AM EHKYkmzfa794.9 cm (6')03/01/2025 9:26 AM EDTBody Mass Index27.04003/01/2025 9:26 AM EDT Plan of Treatment Health MaintenanceDue DateLast DoneCommentsCT Gxkvblnoolhi84/27/1960FIT-DNA 1959FIT1959FOBT0264Pasbjaskozgox50/27/1960COVID-19 Vaccine (#1)1964Pneumococcal Vaccine: 65+ Years (1 of 2 - PCV)1978Influenza Vaccine (#1)5109/19/2021, 06/10/2019, 05/25/2019, Additional history existsMedicare Annual Wellness (AWV)607/7765Wkejwdltsrs09/08/2029 10/02/2018, 10/02/2018Colorectal Cancer Cmysxatei66/08/2029 Procedures Procedure NamePriorityDate/TimeAssociated DiagnosisCommentsHMHP HAPTOGLOBIN Mjgsyml4806/24/2025 6:40 AM EDT MHPT PVRDKHETONMVVifcwdn12/31/2025 6:40 AM EDT ALL SCBMtygufj96/31/2025 6:40 AM EDT [facility] CMP (CMP) (FOR REMOTE [facility] USE)Slqfwch2606/24/2025 6:40 AM EDT ALL CBC WITH AUTO PEGREboamvw50/31/2025 6:40 AM EDT HMHP VGUZYIHPKVHFsmlycv01/15/2025 6:45 AM EDT MHPT KMOUFSSXZROFVvgrvlu51/15/2025 6:45 AM EDT ALL CBC WITH AUTO AWPDMwyscld79/15/2025 6:45 AM EDT ALL YEXXafivvl06/15/2025 6:45 AM EDT [facility] CMP (CMP) (FOR REMOTE [facility] USE)Eppmyyb8006/08/2025 6:45 AM EDT HMHP HTCGEDSKSHZXvtervn12/02/2025 6:39 AM EDT [facility] CMP (CMP) (FOR REMOTE [facility] USE)Efbatud2205/26/2025 6:39 AM EDT MHPT SEBXGKCRQCXHSnklcfg24/02/2025 6:39 AM EDT ALL CBC WITH AUTO GVXDXyuwiaw88/02/2025 6:39 AM EDT MHPT FCHLWWPFGVCZDedugsz42/25/2025 6:34 AM EDT [facility] CMP (CMP) (FOR REMOTE [facility] USE)Kgmmzcx2705/19/2025 6:34 AM EDT ALL CBC WITH AUTO COEEDvtxlqc57/25/2025 6:34 AM EDT MHPT MHWBABTZZIJVBludyfi85/22/2025 6:47 AM EDT [facility] CMP (CMP) (FOR REMOTE [facility] USE)Jsiomax8405/16/2025 6:47 AM EDT ALL CBC WITH AUTO PLVEVpycbnc20/22/2025 6:47 AM EDT US ABDOMEN LIMITED DMIQVP1205/12/2025 1:03 PM EDT HENQNISKOHFWzwymyu64/18/2025 9:36 AM EDT SED RATE BY MODIFIED ASGSLWYLJULqgihhb70/18/2025 9:36 AM EDT VIT. B12/FOLATE YHTBSMGHeamstn10/18/2025 9:36 AM EDT AGMRXWJOPkmllga89/18/2025 9:36 AM EDT SCAN AND LHTMusedyd43/18/2025 9:36 AM EDT IRON AND TOTAL IRON BINDING KDUXRDDVMtzshke04/18/2025 9:36 AM EDT COMPREHENSIVE METABOLIC QTFWDVtudtpr94/18/2025 9:36 AM EDT ALL MISCELLANEOUS KHQSEzjwpwt88/15/2025 9:02 AM EDT HMHP RLRDZDXHLAJAwnhmzl39/15/2025 9:02 AM EDT ALL TYPE AND INLDGTAurgynr75/ 9:02 AM EDT METRO IRON AND XBLFXtjzqtj20/15/2025 9:02 AM EDT CCF EPWDRUMOKuagenf14/15/2025 9:02 AM EDT MHPT JVWSJHJXFTKHZwtokcy28/15/2025 9:02 AM EDT [facility] CMP (CMP) (FOR REMOTE [facility] USE)Ytjvfcr8205/09/2025 9:02 AM EDT ALL CBC WITH AUTO DXAKSebnldt80/15/2025 9:02 AM EDT ALL SED OKMMJqhongh32/15/2025 9:02 AM EDT COLONOSCOPY BQCAFNBIPOMlbnrpt06/08/2019 2:27 PM ESTfrom Last 3 Months or Most Recently Relevant to Health Maintenance Results * (ABNORMAL) MHPT DIFFERENTIAL (06/24/2025 6:40 AM EDT) Only the most recent of6 resultswithin the time period is included. ComponentValueRef RangeTest MethodAnalysis TimePerformed AtPathologist Signature SEGMENTED NEUTROPHILS % TQYCDU04.0(L)43.0 - 75.0TBHLYMPHOCYTES PERCENT MANUAL 67.0(H)20.5 - 60.0 %TBHMONOCYTES PERCENT MANUAL2.01.7 - 12.0 %TBHEOSINOPHILS PERCENT MANUAL1.00.9 - 7.0 %TBHBASOPHILS PERCENT MANUAL0.0(L)0.2 - 2.0 %TBHTBH ATYPICAL LYMPHOCYTES % MANUAL1.0%TBHSEGMENTED NEUT ABSOLUTE MANUAL6.90(H)1.4 - 6.5 10 3/uLTBHLYMPHOCYTES ABSOLUTE BEWHKT30.94(H)1.20 - 3.80 10 3/uLTBHMONOCYTES ABSOLUTE MANUAL0.470.30 - 0.80 10 3/uLTBHEOSINOPHILS ABSOLUTE MANUAL0.230.00 - 0.70 10 3/uLTBHBASOPHILS ABS MANUAL0.000.00 - 0.10 10 3/uLTBHATYPICAL LYMPHOCYTES ABS MAN0.23TBHSMUDGE CELLSSEENTBHSpecimen (Source)Anatomical Location / LateralityCollection Method / VolumeCollection TimeReceived Time 06/24/2025 6:40 AM EDT1 6:43 AM EDT Narrative CLINISYNC - 06/24/2025 7:38 AM EDT Authorizing ProviderResult TypeResult StatusGeneric External Data Provider CLINISYNCFinal ResultPerforming OrganizationAddressty/State/ZIP CodePhone Number [facility] * HMHP HAPTOGLOBIN (06/24/2025 6:40 AM EDT) Only the most recent of4 resultswithin the time period is included. ComponentValueRef RangeTest MethodAnalysis TimePerformed AtPathologist Signature YONCATXMRLG9214 - 363 mg/dLTBHComment: Performed at: ?? - [facility] [address] ??[id number] Bulk Pallet Builder: Chad Mccall PhD, Phone: ??[phone] Specimen (Source)Anatomical Location / LateralityCollection Method / Volume Collection TimeReceived Time06/24/2025 6:40 AM EDT1 6:43 AM EDT Narrative CLINISYNC - 06/25/2025 8:09 AM EDT Authorizing ProviderResult TypeResult StatusGeneric External Data Provider CLINISYNCFinal ResultPerforming OrganizationAddRothman Orthopaedic Specialty Hospitalty/State/ZIP CodePhone Number [facility] * (ABNORMAL) [facility] CMP (CMP) (FOR REMOTE [facility] USE) (06/24/2025 6:40 AM EDT) Only the most recent of6 resultswithin the time period is included. ComponentValueRef RangeTest MethodAnalysis TimePerformed AtPathologist Signature TLMILY642112 - 145 mmol/LTBHPOTASSIUM3.63.5 - 5.1 mmol/RJMKIHZAPWNU05587 - 107 mmol/LTBHCARBON QXWQPWM40.221.0 - 32.0 mmol/LTBHANION GAP11.8SDYCLBKYKD9020 - 106 mg/dLTBHBLOOD UREA GQSBQTCE97.0(H)7.0 - 18.0 mg/dLTBHCREATININE0.870.70 - 1.30 mg/dLTBHTBH EGFR-AF SWAZI>60>=60 mL/min/1.73m 2TBHTBH EGFR-NON AF SWAZI>60>=60 mL/min/1.73m 2TBHBUN CREATININE RATIO26.8PLGIGXXOKJ2.78.5 - 10.1 mg/dLTBHBILIRUBIN TOTAL1.6(H)0.2 - 1.0 mg/dLTBHASPARTATE AMINO VZJIJREMGXR0118 - 37 U/LTBHALANINE VNLCAZHVBXQODXFJ4464 - 63 U/LTBHALKALINE ZAGQYUMDIFS3266 - 116 U/LTBHTOTAL PROTEIN6.0(L)6.4 - 8.2 g/dLTBHALBUMIN LEVEL3.53.4 - 5.0 g/dLTBH GLOBULIN2.5g/dLTBHALBUMIN GLOBULIN RATIO1.4TBHSpecimen (Source)Anatomical Location / LateralityCollection Method / VolumeCollection TimeReceived Time 06/24/2025 6:40 AM EDT1 6:43 AM EDT Narrative CLINISYNC - 06/24/2025 7:36 AM EDT Authorizing ProviderResult TypeResult StatusGeneric External Data Provider CLINISYNCFinal ResultPerforming OrganizationAddressCity/State/ZIP CodePhone Number [facility] * (ABNORMAL) ALL LDH (06/24/2025 6:40 AM EDT) Only the most recent of2 resultswithin the time period is included. ComponentValueRef RangeTest MethodAnalysis TimePerformed AtPathologist Signature LACTATE AAKAVJXVQZCTH018(H)85 - 227 U/LTBHSpecimen (Source)Anatomical Location / LateralityCollection Method / VolumeCollection TimeReceived Time06/24/2025 6:40 AM EDT1 6:43 AM EDT Narrative CLINISYNC - 06/24/2025 7:36 AM EDT Authorizing ProviderResult TypeResult StatusGeneric External Data Provider CLINISYNCFinal ResultPerforming OrganizationAddressCity/State/ZIP CodePhone Number [facility] * (ABNORMAL) ALL CBC WITH AUTO DIFF (06/24/2025 6:40 AM EDT) Only the most recent of6 resultswithin the time period is included. ComponentValueRef RangeTest MethodAnalysis TimePerformed AtPathologist Signature TBH WBC23.8(H)4.0 - 11.0 10 3/uLTBHTBH RBC3.82(L)4.70 - 6.10 10 6/uLTBHTBH HGB 13.1(L)14.0 - 18.0 g/dLTBHTBH HCT38.4(L)42.0 - 54.0 %TBHTBH DGV590.5(H)80.0 - 94.0 fLTBHTBH MCH34.3(H)25.9 - 34.0 pgTBHTBH MCHC34.129.9 - 35.2 g/dLTBHTBH RDW 13.211.0 - 15.0 %TBHTBH OOE436(L)150 - 450 10 3/uLTBHTBH MPV8.6(L)9.5 - 13.5 fL TBHSpecimen (Source)Anatomical Location / LateralityCollection Method / Volume Collection TimeReceived Time06/24/2025 6:40 AM EDT1 6:43 AM EDT Narrative CLINISYNC - 06/24/2025 7:38 AM EDT Authorizing ProviderResult TypeResult StatusGeneric External Data Provider CLINISYNCFinal ResultPerforming OrganizationAddressCity/State/ZIP CodePhone Number [facility] * US abdomen limited spleen (05/12/2025 1:03 PM EDT)Anatomical RegionLaterality ModalityAbdomen, SpleenUltrasoundSpecimen (Source)Anatomical Location / LateralityCollection Method / VolumeCollection TimeReceived Time05/12/2025 1:03 PM EDT Impressions 05/12/2025 1:10 PM EDT Splenomegaly. ?? Impression dictated by: Joey Curry M.D. ??05/12/2025 1:08 PM ? Dictation Location: [facility]- ? Tech: Caterina Aguirre ? Transcribed By: ? PWS ?05/12/25 1308 ? Dictated By: ?Joey Curry S DO ?05/12/25 1303 ? Signed By: <Electronically signed by Joey Curry, DO in OV> ? 05/12/25 1308 Narrative 05/12/2025 1:10 PM EDT [facility] ?[facility] [place] ?[address] ? [place] [address] ? Ultrasound Report ? Signed ? Patient: Yuri Shine ?MR#: [id number] ?? 10 ? : 1960 ?Acct:[id number] ? Age/Sex: 64 / M ?ADM Date: 05/12/25 ? Loc: XT ?Room: ?Type: REG RCR ?? Attending Dr: Christian Carlos II DO ? Ordering Provider: Christian Carlos II, DO ?? Date of Service: 05/12/25 ?? / spleen: D72.820 - Lymphocytosis (symptomatic) ? Copies to: Christian Carlos II, DO ? Ultrasound of the spleen ? No priors. ? HISTORY: Lymphocytosis. ??Lymphocytic leukemia. ??Abdominal pain. ? The spleen measures 15.6 x 7.7 x 15.9 cm. ??No splenic lesion. ??No perisplenic abnormality. ? US/US spleen ?? Procedure Note Radiology, Radiologist, - 05/12/2025 [facility] [place] [address] [place] [address] Ultrasound Report Signed Patient: Yuri Shine [facility]#: [id number] 10 : 1960Acct:[id number] Age/Sex: 64 / MADM Date: 05/12/25 [facility]: [facility]: Christian Carlos II, DO Ordering [...] Curry M.D. 05/12/2025 1:08 PM Dictation Location: [place] [address] Tech: Caterina Aguirre Transcribed By: [facility] 05/12/25 1308 Dictated By: Joey Curry DO 05/12/25 1303 Signed By: <Electronically signed by Joey Curry DO in OV> 05/12/25 1308 Authorizing ProviderResult TypeResult StatusTimmoise Carlos [facility] US PROCEDURESFinal Result * (ABNORMAL) SCAN AND CBC (05/12/2025 9:36 AM EDT)ComponentValueRef RangeTest MethodAnalysis TimePerformed AtPathologist GfhnjztpmJCW76.7(H)4.1 - 10.5 [CFU]/mL05/12/2025 10:33 AM [facility] CtrUNCORRECTED WHITE BLOOD COUNT24.7(H)4.1 - 10.5 10*3/uL05/12/2025 10:33 AM [facility] CtrRBC2.39(L)3.90 - 5.60 10*6/uL05/12/2025 10:33 AM [facility] CtrHEMOGLOBIN8.9(L)13.0 - 17.0 g/dL05/12/2025 10:[address] [facility] ZaeFWVGMWBFFJ06.6(L)38.8 - 50.0 %05/12/2025 10:33 AM [facility] GfpORZ077.3(H)83.5 - 101 fL05/12/2025 10:33 AM [facility] MzhSOK93.3(H)27.5 - 35.2 pg05/12/2025 10:33 AM [facility] BmnHWXV16.532.5 - 35.6 g/dL05/12/2025 10:33 AM [facility] CtrRED CELL DISTRIBUTION WIDTH, RDW16.6(H) 12.0 - 14.8 %05/12/2025 10:33 AM [facility] CtrPLATELET FZCVJ704925 - 450 10*3/uL05/12/2025 10:33 AM [facility] MEAN PLATELET VOLUME, MPV7.06.6 - 10.1 fL05/12/2025 10:33 AM [facility] CtrNEUTROPHILS, %22.4. %05/12/2025 11:09 AM [facility] CtrLYMPHOCYTES, %74.6. %05/12/2025 11:09 AM [facility] CtrMONOCYTE/MACROPHAGE, %2.6. %05/12/2025 11:[address] [facility] CtrEOSINOPHILS, %0.1. %05/12/2025 11:[address] [facility] CtrBASOPHILS, %0.3. %05/12/2025 11:[address] [facility] CtrNRBC0.10 - 0.5 /100{WBC}05/12/2025 11:[address] [facility] CtrNEUTROPHILS5.51.8 - 7.7 10*3/uL05/12/2025 11:09 AM [facility] XfvZQFMECAYETC88.5(H)1.00 - 4.8 10*3/uL 05/12/2025 11:09 AM [facility] CtrMONOCYTES0.60.0 - 0.8 10*3/uL05/12/2025 11:09 AM [facility] CtrEOSINOPHILS0.00.0 - 0.45 10*3/uL05/12/2025 11:09 AM [facility] CtrBASOPHILS 0.10.0 - 0.2 10*3/uL05/12/2025 11:09 AM [facility]tr DDKKURLGVUCEOHztzhxjc63/18/2025 11:09 AM [facility] NMSNGOASNIYVJMijgfn86/18/2025 11:09 AM [facility] YMGLIBHVQNUSYcepdq95/18/2025 11:09 AM [facility] MZYNPMXBCNTLAlrvll05/18/2025 11:09 AM [facility] CtrTEAR DROP WGXQLChmpez32/18/2025 11:09 AM [facility] CtrPLATELET NCEMBTECWojnbyIzewoi41/18/2025 11:09 AM [facility] PLATELET EMESKXYNWQWmqyvcIfxpdz91/18/2025 11:09 AM [facility] CtrSpecimen (Source)Anatomical Location / LateralityCollection Method / VolumeCollection TimeReceived TimeBlood (Blood)05/12/2025 9:36 AM EDT 05/12/2025 9:36 AM EDT Narrative Authorizing ProviderResult TypeResult StatusChristian SMALLAB BLOOD ORDERABLESFinal ResultPerforming OrganizationAddressCity/State/ZIP CodePhone Number [facility] [address] [place] [address], [facility] [address] [place] [address] * VIT. B12/FOLATE PROFILE (05/12/2025 9:36 AM EDT)ComponentValueRef RangeTest MethodAnalysis TimePerformed AtPathologist SignatureVITAMIN [id number] - 914 pg/mL05/12/2025 11:18 AM [facility] BchSKYVNL20.3>5.9 ng/mL 05/12/2025 11:17 AM [facility] CtrComment: Folate reference range: >5.9 ng/ml The WHO technical consultation on folate and vitamin b12 deficiencies has determined that folate concentrations less than 4 ng/ml are considered deficient. Specimen (Source)Anatomical Location / LateralityCollection Method / Volume Collection TimeReceived TimeOtherTopography unknown / Pwqdbez8705/12/2025 9:36 AM EDT05/12/2025 9:36 AM EDT Narrative Authorizing ProviderResult TypeResult StatusChristian Carlos [facility] BLOOD ORDERABLESFinal ResultPerforming OrganizationAddressCity/State/ZIP CodePhone Number [address] [address], [facility] [address] [place] [address] * Iron and TIBC (05/12/2025 9:36 AM EDT)ComponentValueRef RangeTest Method Analysis TimePerformed AtPathologist NxmpjsfykRJWE29548 - 212 ug/dL05/12/2025 10:52 AM [facility] CtrTOTAL IRON BINDING EPONZSFF951715 - 450 ug/dL05/12/2025 10:52 AM [facility] Ctr% IRON TUORNLQPZP75.220 - 50 %05/12/2025 10:52 AM [facility] MEHKAFKGNTP930413 - 362 mg/dL05/12/2025 10:52 AM [facility] CtrSpecimen (Source)Anatomical Location / LateralityCollection Method / VolumeCollection TimeReceived TimeOtherTopography unknown / Uqncgax5105/12/2025 9:36 AM EDT05/12/2025 9:36 AM EDT Narrative Authorizing ProviderResult TypeResult StatusTimmoise Carlos [facility] BLOOD ORDERABLESFinal ResultPerforming OrganizationAddSelect Specialty Hospital - [place]/State/ZIP CodePhone Number [address] [address], [facility] [address] [place] [address] * Sedimentation rate, automated (05/12/2025 9:36 AM EDT)ComponentValueRef Range Test MethodAnalysis TimePerformed AtPathologist SignatureERYTHROCYTE SEDIMENTATION RATE<10 - 19005/12/2025 11:18 AM [facility] CtrSpecimen (Source)Anatomical Location / LateralityCollection Method / Volume Collection TimeReceived TimeBlood (Blood)05/12/2025 9:36 AM EDT05/12/2025 9:36 AM EDT Narrative Authorizing ProviderResult TypeResult StatusChristian Goldomar [facility] BLOOD ORDERABLESFinal ResultPerforming OrganizationAddressty/State/ZIP CodePhone Number [facility] [address] [place] [address], [facility] [address] [place] [address] * (ABNORMAL) Haptoglobin (05/12/2025 9:36 AM EDT)ComponentValueRef RangeTest MethodAnalysis TimePerformed AtPathologist SignatureHAPTOGLOBIN<30(L)44 - 215 mg/dL05/12/2025 11:59 AM [facility] CtrSpecimen (Source) Anatomical Location / LateralityCollection Method / VolumeCollection Time Received TimeOtherTopography unknown / Rykqoku4405/12/2025 9:36 AM EDT05/12/2025 9:36 AM EDT Narrative Authorizing ProviderResult TypeResult StatusChristian Carlos [facility] BLOOD ORDERABLESFinal ResultPerforming OrganizationAddressCity/State/ZIP CodePhone Number [facility] [address] [facility] [place] [address], [facility] [address] [place] [address] * Ferritin (05/12/2025 9:36 AM EDT)ComponentValueRef RangeTest MethodAnalysis TimePerformed AtPathologist UdakbicukYRZKDFOQ366.123.9 - 336.2 ng/mL05/12/2025 11:14 AM [facility] CtrSpecimen (Source)Anatomical Location / LateralityCollection Method / VolumeCollection TimeReceived Time OtherTopography unknown / Rsorkbd7105/12/2025 9:36 AM EDT05/12/2025 9:36 AM EDT Narrative Authorizing ProviderResult TypeResult StatusChristian Lowanjum [facility] BLOOD ORDERABLESFinal ResultPerforming OrganizationAddressty/State/ZIP CodePhone Number [facility] [address] [place] [address], [facility] [address] [place] [address] * (ABNORMAL) Comprehensive metabolic panel (05/12/2025 9:36 AM EDT)Component ValueRef RangeTest MethodAnalysis TimePerformed AtPathologist SignatureGlucose 8870 - 100 mg/dL05/12/2025 10:52 AM [facility] CtrComment: Random Glucose Reference Range is dependent on time and content of last meal. Glucose of more than 200 mg/dL in a nonstressed, ambulatory subject supports the diagnosis of Diabetes Mellitus. ADA recommended reference range KHR928 - 25 mg/dL05/12/2025 10:52 AM [facility] CtrCREATININE 0.920.70 - 1.30 mg/dL05/12/2025 10:52 AM [facility] ESTIMATED GFR>60. 10:52 AM [facility] AxoEvtvli381 136 - 145 mmol/L05/12/2025 10:52 AM [facility] CtrPotassium, Bld3.63.5 - 5.1 mmol/L05/12/2025 10:52 AM [facility] Wtqrvwgd63708 - 107 mmol/L05/12/2025 10:52 AM [facility] Carbon Zevdjxr15.3(H)21.0 - 31.0 mmol/L05/12/2025 10:52 AM [facility] CtrAnion Gap7.36.0 - 15. 10:52 AM [facility] CtrCalcium8.78.6 - 10.3 mg/dL05/12/2025 10:52 AM [facility] CtrTOTAL PROTEIN5.8(L)6.4 - 8.9 g/dL05/12/2025 10:52 AM [facility] CtrALBUMIN LEVEL4.23.5 - 5.7 g/dL05/12/2025 10:[address] [facility] CtrGLOBULIN1.6g/dL05/12/2025 10:52 AM [facility] CtrALBUMIN/GLOBULIN RATIO2.609 10:52 AM [facility] CtrBILIRUBIN,TOTAL3.4(H)0.3 - 1.0 mg/dL05/12/2025 10:[address] [facility] CtrComment: Samples from patients who have taken Naproxen have shown spurious elevation in Total Bilirubin levels. ??A metabolite of Naproxen, O-desmethylnaproxen, has been shown to interfere with the Jenjoryik-Federica method for measuring Total Bilirubin. ASPARTATE AMINO [id number] - 39 U/L05/12/2025 10:52 AM [facility] CtrALANINE [id number] - 52 U/L05/12/2025 10:52 AM EDT [place] CtrALKALINE [id number] - 104 U/L05/12/2025 10:52 AM [facility] CtrCREATININE CLR CALC FULZBCWX28.8605/12/2025 10:52 AM [facility] CtrSpecimen (Source)Anatomical Location / LateralityCollection Method / VolumeCollection TimeReceived TimeOther Topography unknown / Mgathzd5405/12/2025 9:36 AM EDT05/12/2025 9:36 AM EDT Narrative Authorizing ProviderResult TypeResult StatusChristian Carlos [facility] BLOOD ORDERABLESFinal ResultPerforming OrganizationAddressCity/State/ZIP CodePhone Number [facility] [address] [place] [address], [facility] [address] [place] [address] * [employer] (05/09/2025 9:02 AM EDT)ComponentValueRef RangeTest Method Analysis TimePerformed AtPathologist SignatureTBH TLTP625.065.0 - 175.0 ug/dL TBHTBH TOTAL IRON BINDING WLOUGVNY754.0250.0 - 450.0 ug/dLTBHTBH PERCENT IRON IYRJQQEEVR38.5%TBHSpecimen (Source)Anatomical Location / LateralityCollection Method / VolumeCollection TimeReceived Time05/09/2025 9:02 AM EDT05/09/2025 9:34 AM EDT Narrative [facility] - 05/09/2025 10:36 AM EDT Authorizing ProviderResult TypeResult StatusGeneric External Data Provider CLINISYNCFinal ResultPerforming OrganizationAddressCity/State/ZIP CodePhone Number CLINISYTX TB * [facility] FERRITIN (05/09/2025 9:02 AM EDT)ComponentValueRef RangeTest Method Analysis TimePerformed AtPathologist WzkgonqhjVPDOSQFB092.026.0 - 388.0 ng/mL TBHSpecimen (Source)Anatomical Location / LateralityCollection Method / Volume Collection TimeReceived Time05/09/2025 9:02 AM EDT05/09/2025 9:34 AM EDT [facility] - 05/09/2025 10:27 AM EDT Authorizing ProviderResult TypeResult StatusGeneric External Data Provider CLINISYNCFinal ResultPerforming OrganizationAddRothman Orthopaedic Specialty Hospitalty/State/ZIP CodePhone Number [facility] * ALL TYPE AND SCREEN (05/09/2025 9:02 AM EDT)ComponentValueRef RangeTest Method Analysis TimePerformed AtPathologist SignatureBLOOD TYPEO PositiveTBHANTIBODY SCREENPOSITIVETBHComment: Sent to Reference Lab, see [facility] report regarding red cell reactivity. ??Subsequent testing will be necessary if transfusion becomes necessary. Specimen (Source)Anatomical Location / LateralityCollection Method / Volume Collection TimeReceived Time05/09/2025 9:02 AM EDT05/09/2025 9:34 AM EDT [facility] - 05/12/2025 11:43 AM EDT [facility] , ?? Authorizing ProviderResult TypeResult StatusGeneric External Data Provider CLINISYNCEdited Result - FinalPerforming OrganizationAddRothman Orthopaedic Specialty Hospitalty/[facility] Code Phone Number [facility] * ALL SED RATE (05/09/2025 9:02 AM EDT)ComponentValueRef RangeTest Method Analysis TimePerformed AtPathologist SignatureTBH SED RATE<1<=20 mm/hrTBH Specimen (Source)Anatomical Location / LateralityCollection Method / Volume Collection TimeReceived Time05/09/2025 9:02 AM EDT05/09/2025 9:34 AM EDT Narrative [facility] - 05/09/2025 9:56 AM EDT Authorizing ProviderResult TypeResult StatusGeneric External Data Provider CLINISYNCFinal ResultPerforming OrganizationAdd[facility] [place]/[facility]/ZIP CodePhone Number [facility] * ALL MISCELLANEOUS TEST (05/09/2025 9:02 AM EDT)ComponentValueRef RangeTest MethodAnalysis TimePerformed AtPathologist SignatureMISCELLANEOUS TESTCOMMENT. TBHComment: Test Ordered: [id number] Antibody Identification Antibody Id. #1 ?Comment ? [...] POSITIVE (3+) WITH ANTI-IgG Kane Titer #1 ?BEAN WEIGHER ?NOLAB ?? Reference Range: . Antibody Id. #2 ?BEAN WEIGHER ?NOLAB ?? Reference Range: . Kane Titer #2 ?BEAN WEIGHER ?NOLAB ?? Reference Range: . Performed at: ??[facility] - [facility] [address], [place], [place] ??[id number] Bulk Pallet Builder: Chad Mccall PhD, Phone: ??[phone] Specimen (Source)Anatomical Location / LateralityCollection Method / Volume Collection TimeReceived Time05/09/2025 9:02 AM EDT05/09/2025 10:49 AM EDT Narrative [facility] - 05/10/2025 2:08 PM EDT [id number] Antibody Identification Authorizing ProviderResult TypeResult StatusGeneric External Data Provider CLINISYNCFinal ResultPerforming OrganizationAddressCity/State/ZIP CodePhone Number CLINISYNC [facility] * COLONOSCOPY DIAGNOSTIC (10/02/2018 2:27 PM EST)Anatomical RegionLaterality ModalityRadiographic Imaging Narrative Authorizing ProviderResult TypeResult StatusUnknown Practice AIMG XR PROCEDURES Final Result from Last 3 Months or Most Recently Relevant to Health Maintenance Insurance Care Teams Team MemberRelationshipSpecialtyStart DateEnd Date Linda Jansen PA [address] [facility] [address] [place] [address] PCP - GeneralFamily Rqloonri58/13/23
--- OUTSIDE RECORDS SUMMARY | 2025-07-07 06:21 | XMS_ITS | Encounter Summary ---
Author Organization [facility] Address [address] [place] [address] Care Team Providers Care House Supervisor Name Role Phone Linda Jansen Primary Care Provider Encounter Details DateTypeDepartmentCare Team (Latest Contact Info)Dmfepxsdfnz63/31/2025Clinisync Result Encounter [facility] Unsolicited Provider, Generic External Data Social History Tobacco UseTypesPacks/DayYears UsedDateSmoking Tobacco: NeverSmokeless [...] times a week08/06/2023How often do you attend adventist or baptist services?1 to 4 times per year08/06/2023o you belong to any clubs or organizations such as adventist groups, unions, fraternal or athletic groups, or [...] RecordedPatient Health Questionnaire-2 Score0 03/01/2025[facility] - Occupational Stress QuestionnaireAnswerDate RecordedDo you feel stress - tense, restless, nervous, or anxious, or unable to sleep at night because yourmind is troubled all the time - these days?Only a ebpdyw6908/06/2023Exercise Vital SignAnswerDate Recorded On average, how many [...] steady place to sleep or slept in atlantaelter (including now)?No08/06/2023Sex and Gender InformationValueDate RecordedSex Assigned at BirthNot on fileLegal SexMale 11/06/2022 8:11 PM EDTGender IdentityNot on fileSexual OrientationNot on file documented as of this encounter Plan of Treatment Not on file documented as of this encounter Procedures Procedure NamePriorityDate/TimeAssociated DiagnosisCommentsMHPT DIFFERENTIAL Ntimlpx5606/24/2025 6:40 AM EDT HMHP CMSKRXDRPDARfnvexm60/31/2025 6:40 AM EDT [facility] CMP (CMP) (FOR REMOTE [facility] USE)Uffrizn0306/24/2025 6:40 AM EDT ALL ABPLdhjtee22/31/2025 6:40 AM EDT ALL CBC WITH AUTO CWEYXmyfkxx93/31/2025 6:40 AM EDT documented in this encounter Results * HMHP HAPTOGLOBIN (06/24/2025 6:40 AM EDT)ComponentValueRef RangeTest Method Analysis TimePerformed AtPathologist KeqnfzwctPVUITCDGJBM7380 - 363 mg/dLTBH Comment: Performed at: ??CB - [facility] [address], [place], [place] ??[id number] Housekeeper Child Care: Chad Mccall PhD, Phone: ??[phone] Specimen (Source)Anatomical Location / LateralityCollection Method / Volume Collection TimeReceived Time06/24/2025 6:40 AM EDT1 6:43 AM EDT Narrative [facility]IN[facility]YNC - 06/25/2025 8:09 AM EDT Authorizing ProviderResult TypeResult StatusGeneric External Data Provider CLINISYNCFinal ResultPerforming OrganizationAddressCity/State/ZIP CodePhone Number ÁNGELA [facility] * (ABNORMAL) MHPT DIFFERENTIAL (06/24/2025 6:40 AM EDT)ComponentValueRef Range Test MethodAnalysis TimePerformed AtPathologist SignatureSEGMENTED NEUTROPHILS % VDIGGE21.0(L)43.0 - 75.0TBHLYMPHOCYTES PERCENT AWPZSE60.0(H)20.5 - 60.0 %TBH MONOCYTES PERCENT MANUAL2.01.7 - 12.0 %TBHEOSINOPHILS PERCENT MANUAL1.00.9 - 7.0 %TBHBASOPHILS PERCENT MANUAL0.0(L)0.2 - 2.0 %TBHTBH ATYPICAL LYMPHOCYTES % MANUAL1.0%TBHSEGMENTED NEUT ABSOLUTE MANUAL6.90(H)1.4 - 6.5 10 3/uLTBH LYMPHOCYTES ABSOLUTE TQDHRQ18.94(H)1.20 - 3.80 10 3/uLTBHMONOCYTES ABSOLUTE MANUAL0.470.30 - 0.80 10 3/uLTBHEOSINOPHILS ABSOLUTE MANUAL0.230.00 - 0.70 10 3/uLTBHBASOPHILS ABS MANUAL0.000.00 - 0.10 10 3/uLTBHATYPICAL LYMPHOCYTES ABS MAN0.23TBHSMUDGE CELLSSEENTBHSpecimen (Source)Anatomical Location / Laterality Collection Method / VolumeCollection TimeReceived Time06/24/2025 6:40 AM EDT 06/24/2025 6:43 AM EDT Narrative CLINISYNC - 06/24/2025 7:38 AM EDT Authorizing ProviderResult TypeResult StatusGeneric External Data Provider CLINISYNCFinal ResultPerforming OrganizationAddressCity/State/ZIP CodePhone Number ÁNGELA [facility] * (ABNORMAL) ALL LDH (06/24/2025 6:40 AM EDT)ComponentValueRef RangeTest Method Analysis TimePerformed AtPathologist SignatureLACTATE KEFZVWUXICSWF614(H)85 - 227 U/LTBHSpecimen (Source)Anatomical Location / LateralityCollection Method / VolumeCollection TimeReceived Time06/24/2025 6:40 AM EDT1 6:43 AM EDT Narrative ÁNGELA - 06/24/2025 7:36 AM EDT Authorizing ProviderResult TypeResult StatusGeneric External Data Provider CLINISYNCFinal ResultPerforming OrganizationAddressCity/State/ZIP CodePhone Number CLINISYNC TB[facility] * (ABNORMAL) [facility] CMP (CMP) (FOR REMOTE [facility] USE) (06/24/2025 6:40 AM EDT) ComponentValueRef RangeTest MethodAnalysis TimePerformed AtPathologist EvwhaulddCNIYHJ003628 - 145 mmol/LTBHPOTASSIUM3.63.5 - 5.1 mmol/LTBHCHLORIDE 98350 - 107 mmol/LTBHCARBON DRVSVCT35.221.0 - 32.0 mmol/LTBHANION GAP11.4TBH OGWDMMM8306 - 106 mg/dLTBHBLOOD UREA IUGJTBVN12.0(H)7.0 - 18.0 mg/dLTBH CREATININE0.870.70 - 1.30 mg/dLTBHTBH EGFR-AF WELSH>60>=60 mL/min/1.73m 2 TBHTBH EGFR-NON AF WELSH>60>=60 mL/min/1.73m 2TBHBUN CREATININE RATIO26.4 TBHCALCIUM8.78.5 - 10.1 mg/dLTBHBILIRUBIN TOTAL1.6(H)0.2 - 1.0 mg/dLTBH ASPARTATE AMINO IGCRSHVANRE8065 - 37 U/LTBHALANINE PJDVGTOGZUWUDIEC8139 - 63 U/LTBHALKALINE SNAWTEEVQLA7176 - 116 U/LTBHTOTAL PROTEIN6.0(L)6.4 - 8.2 g/dL TBHALBUMIN LEVEL3.53.4 - 5.0 g/dLTBHGLOBULIN2.5g/dLTBHALBUMIN GLOBULIN RATIO 1.4TBHSpecimen (Source)Anatomical Location / LateralityCollection Method / VolumeCollection TimeReceived Time06/24/2025 6:40 AM EDT1 6:43 AM EDT Narrative CLINISYNC - 06/24/2025 7:36 AM EDT Authorizing ProviderResult TypeResult StatusGeneric External Data Provider CLINISYNCFinal ResultPerforming OrganizationAddressCity/State/ZIP CodePhone Number ÁNGELA [facility] * (ABNORMAL) ALL CBC WITH AUTO DIFF (06/24/2025 6:40 AM EDT)ComponentValueRef RangeTest MethodAnalysis TimePerformed AtPathologist SignatureTBH WBC23.8(H) 4.0 - 11.0 10 3/uLTBHTBH RBC3.82(L)4.70 - 6.10 10 6/uLTBHTBH HGB13.1(L)14.0 - 18.0 g/dLTBHTBH HCT38.4(L)42.0 - 54.0 %TBHTBH BRN220.5(H)80.0 - 94.0 fLTBHTBH MCH34.3(H)25.9 - 34.0 pgTBHTBH MCHC34.129.9 - 35.2 g/dLTBHTBH RDW13.211.0 - 15.0 %TBHTBH BYZ575(L)150 - 450 10 3/uLTBHTBH MPV8.6(L)9.5 - 13.5 fLTBH Specimen (Source)Anatomical Location / LateralityCollection Method / Volume Collection TimeReceived Time06/24/2025 6:40 AM EDT1 6:43 AM EDT Narrative [facility]IN[facility]YNC - 06/24/2025 7:38 AM EDT Authorizing ProviderResult TypeResult StatusGeneric External Data Provider CLINISYNCFinal ResultPerforming OrganizationAddressCity/State/ZIP CodePhone Number ÁNGELA TBH documented in this encounter Visit Diagnoses Not on filedocumented in this encounter Care Teams Team MemberRelationshipSpecialtyStart DateEnd Date Linda Jansen PA [address] [facility] [address] [place] [address] PCP - GeneralFamily Eodmitet52/13/23documented as of this encounter
--- OUTSIDE RECORDS SUMMARY | 2025-07-07 06:21 | XMS_ITS | Clinical Summary ---
Author Organization [facility] Address [address] [place] [address] Care Team Providers Care Analysis Specialist Name Role Phone Ita Tuttle MD [facility] [phone] Allergies No known active allergies Medications [...] by mouth once daily. 90 tablet 310/5Active NIFEdipine XL (ADALAT CC) 30 mg 24 hr tablet Indications:Hypertension, unspecified typeTake 1 tablet by mouth once daily. 90 tablet 310/5Active Valsartan-hydroCHLOROthiazide 320-25 mg per tablet Take 1 tablet by mouth once daily. 30 tablet 310/5Active nebivolol (BYSTOLIC) 5 mg tablet Indications:Prescription refillTAKE 1 TABLET BY MOUTH EVERY DAY 90 tablet 302/04//Discontinued NIFEdipine XL (ADALAT CC) 30 mg 24 hr tablet Indications:Hypertension, unspecified typeTake 1 tablet by mouth once daily. 90 tablet 305///Discontinued Valsartan-hydroCHLOROthiazide 320-25 mg per tablet Take 1 tablet by mouth once daily. 90 tablet 30851Discontinued Active Problems ProblemNoted DateDiagnosed DatePONV (postoperative nausea and vomiting) 12/03/2021trial fibrillation, dssponxrkg36/03/2022enign essential HTN 09/27/2021SA (obstructive sleep apnea)09/27/2021 Encounters DateTypeDepartmentCare CtwaHxgybxlzjlu90/15/2025Refill Cardiology [address] [place] [address] WattaIta jaimes MD Refill Kkrarbv5806/08/2025Refill Cardiology [address] [place] [address] WattaIta jaimes MD Refill Advntdo9906/08/2025Travelfrom Last 3 Months Immunizations ImmunizationAdministration DatesNext Duehepatitis [...] RecordedNational Score (1-100), lower number is lower dsfo593912/25/2022State Score (1-10), lower number is lower uumv4023Data from: https://www.neighborhoodatlas.medicine.[facility].edu/. Last address used for s[address] [facility]12/25/2022Sex and Gender InformationValueDate RecordedSex Assigned at BirthNot on fileLegal SexMale 06/01/2021 12:00 PM EDTGender IdentityNot on fileSexual OrientationNot on file Last Filed Vital Signs Vital SignReadingTime TakenCommentsBlood Wlulgkrv792/8808 2:32 PM EDT Fdbtu270604/04/2025 2:32 PM JSQUiviwwtokto08.9 ??C (98.5 ??F)04/05/2022 2:52 PM EDTRespiratory Rooq310110/03/2023 1:23 PM ESTOxygen Lvymiwifnr24%01/30/2024 2:12 PM EDTInhaled Oxygen Concentration--Byfwlp28.6 kg (195 lb 5.2 oz)04/04/2025 2:32 PM JICZhrdsh440.9 cm (6')04/04/2025 2:32 PM EDTBody Mass Index26.49004/04/2025 2:32 PM EDT Plan of Treatment DateTypeDepartmentCare Team (Latest Contact Info)Gmpxwxwziea35/24/2025 8:30 AM ESTVisit (SP) Office Hematology/Oncology [address] [place] [address] [place] [address] [place] [address] NEW CONSULT / CLL / DR XIETRTUCYLKCXY08/12/2026 8:00 AM EDTOffice Visit Cardiology [address] [place] [address] [place] [address] [place] [address] yearly follow upHealth MaintenanceDue DateLast DoneCommentsAnnual PCP Team Chronic Disease Visit1977Anxiety Angvcigsc32/27/1978Depression Screening 1977HIV Tvwfzqfsb67/27/1978Hepatitis C Uevbjjgrm41/27/1978DTaP,Tdap,Td Vaccine (1 - Tdap)1978CT Mxidclkfiozt38/27/2005Cologuard (FIT-DNA) 09/20/20043005Uxaekppnatc47/27/2005Colorectal Cancer Ssropdwco25/27/2005Fecal Occult Blood09/20/20044709Dpnflwcytqbmp61/27/2005Pneumococcal Vaccine: 50+ (1 of 1 - PCV) 2009Shingrix Vaccine (1 of 2)2009dvance Directive Discussion 5Covid-19 Vaccine (1 - 2024- season)2025Influenza Vaccine (#1) 511/, 06/10/2019, 05/25/2019, Additional history existsMedicare Annual Wellness Visit04/25/2025Lipid Grmytyfka34, 04/01/2022 Diabetes Nziurktpr55/, 03/18/2025, 02/10/2025, Additional history existsProstate Cancer Screening Ldoyvnrqhs55, 12/27/2022, 2RSV Vaccine (1 - 1-dose 75+ series)2034 Procedures Procedure NamePriorityDate/TimeAssociated DiagnosisCommentsLVEF TRANSTHORACIC SSKJKgetiqw11/20/2025 10:33 AM EDT BTDIHawhwge56/20/2025 10:33 AM EDT PAF (paroxysmal atrial fibrillation) (HCC) BASIC METABOLIC LCWDVTenlpcu49/23/2023 3:53 PM EST Hypertension, unspecified type LIPID PANEL, GZJSLOFRxkzkep65/08/2022 7:33 AM EDT Atherosclerosis from Last 3 [...] * * * Final * * * [facility] - 06/13/2025 11:45 AM EDT Echocardiography Report: Transthoracic Echo [place] [facility] Date of service: 06/13/2025 10:33:42 AM PROCESS SPECIALIST Ordering physician: ITA TUTTLE Exam indication: Sustained [...] is no pericardial effusion. Authorizing ProviderResult TypeResult StatusIta Tuttle MDECHOFinal Result Performing OrganizationAddressCity/State/ZIP CodePhone Number [facility] [address] [place] [address] * LVEF TRANSTHORACIC ECHO (06/13/2025 10:33 AM EDT)ComponentValueRef RangeTest MethodAnalysis TimePerformed AtPathologist SignatureLV Ejection Jueexage58% HEART AND VASCULAR INSTITUTEComment: (2D biplane) EF > 52 An LV Ejection Fraction of > 50% is normal Specimen (Source)Anatomical Location / LateralityCollection Method / Volume Collection TimeReceived Time06/13/2025 10:33 AM EDT Narrative Authorizing ProviderResult TypeResult StatusIta Tuttle MDLVEF RESULTSFinal ResultPerforming OrganizationAddressCity/State/ZIP CodePhone Number [facility] [address] [place] [address] * (ABNORMAL) LIPID PANEL BASIC (04/01/2022 7:33 AM EDT)ComponentValueRef Range Test MethodAnalysis TimePerformed AtPathologist SignatureCholesterol, Mzets772 <200 mg/dL04/01/2022 7:01 PM [facility]: <200 mg/dL, Desirable 200-239 mg/dL, Borderline high >239 mg/dL, High Inrodjgqxbjy41<150 mg/dL04/01/2022 7:01 PM [facility] Comment: <150 mg/dL, Normal 150-199 mg/dL, Borderline high 200-499 mg/dL, High >499 mg/dL, Very high HDL Qxhliseqsdj15>39 mg/dL04/01/2022 7:01 PM [facility] Comment: 40-59 mg/dL, Acceptable >59 mg/dL, High: Negative risk factor for coronary heart disease <40 mg/dL, Low: Positive risk factor for coronary heart disease Non HDL Idlsfovvnmv583<130 mg/dL04/01/2022 7:01 PM [facility]Comment: <130 mg/dL, Optimal 130-159 mg/dL, Near optimal/above optimal 160-189 mg/dL, Borderline high 190-219 mg/dL, High >219 mg/dL, Very high Secondary prevention optimal non HDL Cholesterol levels are recommended to be <100 mg/dL Fasting Dazo57rgj91/08/2022 7:01 PM EDTNORTHCO[facility] LABVLDL Tfyqkzrvjjt08<30 mg/dL04/01/2022 7:01 PM [facility] TC:HDL Ratio3.33<5.10004/01/2022 7:01 PM [facility] LABLDL Cholesterol, Lachaoshsl537(H)<100 mg/dL04/01/2022 7:01 PM [facility] LABComment: <100 mg/dL, Optimal 100-129 mg/dL, Near optimal/above optimal 130-159 mg/dL, Borderline high 160-189 mg/dL, High >189 mg/dL, Very high Secondary prevention optimal LDL Cholesterol levels are recommended to be < 70 mg/dL LDL:HDL Ratio2.00<2.54004/01/2022 7:01 PM [facility] Comment: Reference: 1. National Cholesterol Education Program ATP III Guideline At-A-Glance Quick Desk Reference: National Heart, Lung, and Blood [place]. National Institutes of Health. 2001: NIH Publication No. 01-3305. 2. An International Atherosclerosis Society position paper: global recommendations for the management of dyslipidemia: executive summary, Atherosclerosis. 2014: 232(2):410-413. Specimen (Source)Anatomical Location / LateralityCollection Method / Volume Collection TimeReceived TimeBloodBLOOD SPECIMEN / UnknownVenipuncture / Unknown 04/01/2022 7:33 AM EDT04/01/2022 7:33 AM EDT Narrative Authorizing ProviderResult TypeResult StatusIta Tuttle MDLABORATORYFinal ResultPerforming OrganizationAddressCity/State/ZIP CodePhone Number [facility] [address] [place] [address], [facility] [address] [place] [address] from Last 3 Months or Most Recently Relevant to Health Maintenance Insurance Care Teams Team MemberRelationshipSpecialtyStart [place] [address] [place] [address] Primary Staff PhysicianCardiology03/22/22
[2025-07-07 07:05] LABS: Hematocrit 38.4 % (42.0-54.0); Hemoglobin 12.8 g/dL (14.0-18.0); Mean Corpuscular HGB Conc 33.3 g/dL (29.9-35.2); Mean Corpuscular Hemoglobin 33.6 pg (25.9-34.0); Mean Corpuscular Volume 100.8 fL (80.0-94.0); Platelet Count 155 10^3/uL (150-450); Red Blood Count 3.81 10^6/uL (4.70-6.10); White Blood Count 24.0 10^3/uL (4.0-11.0)
[2025-07-07 08:35] LABS: Basophils Abs Manual 0.00 10^3/uL (0.00-0.10); Basophils Percent Manual 0.0 % (0.2-2.0); Eosinophils Absolute Manual 0.00 10^3/uL (0.00-0.70); Eosinophils Percent Manual 0.0 % (0.9-7.0); Lymphocytes Absolute Manual 16.32 10^3/uL (1.20-3.80); Lymphocytes Percent Manual 68.0 % (20.5-60.0); Monocytes Absolute Manual 0.48 10^3/uL (0.30-0.80); Monocytes Percent Manual 2.0 % (1.7-12.0); Segmented Neut Absolute Manual 7.20 10^3/uL (1.4-6.5); Segmented Neutrophils % Manual 30.0 (43.0-75.0)
[2025-07-07 08:36] LABS: Macrocytosis 1+; Smudge Cells SEEN
[2025-07-07 09:34] LABS: Alanine Aminotransferase 53 U/L (16-63); Albumin Globulin Ratio 1.3; Albumin Level 3.3 g/dL (3.4-5.0); Alkaline Phosphatase 74 U/L (46-116); Anion Gap 5.4; Aspartate Amino Transferase 25 U/L (15-37); Blood Urea Nitrogen 16.0 mg/dL (7.0-18.0); Calcium 8.6 mg/dL (8.5-10.1); Carbon Dioxide 35.5 mmol/L (21.0-32.0); Chloride 102 mmol/L (98-107); Estimated GFR (African America >60 (>=60 mL/min/1.73m^2); Estimated GFR (Non-African Ame >60 (>=60 mL/min/1.73m^2); Globulin 2.6 g/dL; Glucose 85 mg/dL (74-106); Potassium 3.9 mmol/L (3.5-5.1); Sodium 139 mmol/L (136-145); Total Protein 5.9 g/dL (6.4-8.2)
[2025-07-08 15:08] LABS: Albumin 3.2 g/dL (2.9-4.4); Alpha-1-Globulin 0.3 g/dL (0.0-0.4); Alpha-2-Globulin 0.5 g/dL (0.4-1.0); Gamma Globulin 0.5 g/dL (0.4-1.8)
== END 2025-07-07 06:14 | disposition home or self-care (01) ==
LOC: LAB 06:16
PROVIDERS: PCP Physician Assistant; Visit Provider Internal Medicine
DX: D59.10 Autoimmune hemolytic anemia, unspecified (principal); C91.10 Chronic lymphocytic leukemia of B-cell type not having achieved remission
CPT/HCPCS: 36415; 80053; 83010; 83615; 84155; 84165; 85007; 85027; 86850; 86880; 86900; 86901

== ENCOUNTER 2025-07-15 11:15 | Outpatient (OUT) | payer MEDICARE, SELFPAY ==
--- OUTSIDE RECORDS SUMMARY | 2025-07-08 04:47 | XMS_ITS | Continuity of Care Document ---
Author Organization [facility] Address [address] [place] [address] Phone Care Team Providers Care Wild Life Photographer Name Role Phone Linda Jansen LEATHER PIECE INSPECTOR-C Primary Care Provider Gracie Daily NP-C Attending Provider Christian Carlos II, DO Attending Provider Linda Jansen LEATHER PIECE INSPECTOR-C Referring Provider [phone] Care Teams Patient Care Team Team Status: Active Member Role/Relationship Status Dates Linda Jansen LEATHER PIECE INSPECTOR-C Primary Care Provider Active Visit Care Team Team Status: Inactive Member Role/Relationship Status Dates Linda Jansen LEATHER PIECE INSPECTOR-C Primary Care Provider Active Start: May 13, 2025 End: May 13Paul Adam ProviderActiveStart: May 13, 2025 End: May 13, 2025 Visit Care Team Team Status: Active Member Role/Relationship Status Dates Linda Jansen LEATHER PIECE INSPECTOR-C Primary Care Provider Active Start: May 13, 2025 Christian Carlos II, DOAttending ProviderActiveStart: May 13, 2025 Visit Care Team Team Status: Inactive Member Role/Relationship Status Galilea Jansen LEATHER PIECE INSPECTOR-C Primary Care Provider Active Start: May 27, 2025 End: May 27, 2025Christian Carlos II, DOAttending ProviderActiveStart: May 27, 2025 End: May 27, 2025 Patient Care Team Team Status: Inactive Member Role/Relationship Status Dates Linda Jansen LEATHER PIECE INSPECTOR-C Primary Care Provider Active Start: July 08, 2025 End: July 08, 2025Christian Carlos II, DOAttending ProviderActiveStart: July 08, 2025 End: July 08, 2025 Visit Care Team Team Status: Active Member Role/Relationship Status Dates Christian Carlos II, DO Attending Provider Active Start: July 08, 2025 Linda Jansen NP-CPrimary Care ProviderActiveStart: July 08, 2025 Linda Jansen NP-CReferring ProviderActiveStart: July 08, 2025 Chief Complaint and Reason for Visit Chief Complaint Admit Date moved up triage 05/05May 13 9:24am moved up triage 05/05May 13 9:30am 2 WK Follow Up May 27, 2025 12 :40pm Follow Up 6 Weeks July 08, 2025 9:13am lymphocytosis July 08, 2025 9:20am Reason for Visit Admit Date 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 CLL (chronic lymphocytic leukemia) Septe er 2024 9:24am Allergies, Adverse Reactions, Alerts Allergen Type Severity Reaction Last Updated Verified Status No Known Allergies Allergy Unknown July 08, 2025 9:24amYesActive Social History Smoking Status Status Start Date End Date Date of Observa tion Never smoked tobacco (finding) February 19, 2025 9:39am Observation Status Observation Response Date of Response Legal Sex [facility] (finding) [facility] 1960 Family History Relationship Condition Age at Onset Recorded Date/T nalini father Denver's disease Unknown fatherDeceasedUnknownmotherDeceasedUnknownMalignant neoplasmUnknowngrandparent Malignant neoplasm of pancreasUnknown Problems Active Problems Problem Diagnosis/Recorded Date Onset Date Status C omments Finger pain July 24, 2024 10:43am Unknown Active CLL (chronic lymphocytic leukemia)May 13, 2025 10:25amUnknownActive Autoimmune hemolytic anemiaSeptember 2024 10:25amUnknownActive LymphocytosisJune 2023 12:41pmUnknownActiveFracture of finger, left, closed July 24, 2024 12:26pmUnknownActiveContact dermatitisJune 2024 9:07am UnknownActiveInactive/Resolved Problems Problem Diagnosis/Recorded Date Onset Date Status C naya COVID-19 July 28, 2021 4:47pm Unknown Resolved Problem List clean-up per request of Phys. EHR Cmte Screening for colorectal cancer October 02, 2018 7:30am Unknown Resolved Prob betsy List clean-up per request of Phys. EHR Cmte Anticoagulated May 04, 2020 11:27am Unknown Resolved Problem List clean-up per request of Phys. EHR Cmte Side effect of medication July 28, 2021 4:47pm Unknown Resolved Proble m List clean-up per request of Phys. EHR Cmte Paroxysmal atrial fibrillation May 04, 2020 11:26am Unknown Resolved Problem List clean-up per request of Phys. EHR Cmte Hypertension May 04, 2020 9:23am Unknown Resolved Problem List clean-up per request of Phys. EHR Cmte Cardiomyopathy May 04, 2020 11:26am Unknown Resolved Problem List clean-up per request of Phys. EHR Cmte Medications Medication Status Dose Units Route Directions Qty Days Refills S tart Date Stop Date End Date Reason(s) Instructions Adherence Prednisone 20 mg tablet Discontinued 80 MG PO Tammy ly 120 0Sept2024 11:00pmOctober 2024 12:19pmFolic Acid 1 mg tablet Elcmqvcplejp2MEOTPdzvz915Oeudrzcde 11th, 2025 11:00pmOctober 2024 7:17am Folic Acid 1 mg rhgasiInvkaj3OQVOKlncr555Iraepgu 2024 7:17amUnknown Furosemide 40 mg mggwtqCghraukferqg83XFIZAiasp morningJuly 06, 2020 12:00amMay 2023 1:06pmHydrocodone-Acetaminophen (Magnet) 5-325 mg tablet Discontinued1 - 2TABPOEVERY 4-6 HOURS as needed for Vzmr1161Dlfpjyys2019August 28, 2021 2:10pmPostoperative pain of extremity Mass of wrist Other acute postprocedural pain Localized swelling, mass and lump, unspecified upper limbDoxycycline Hyclate 100 mg pxkzqeFpivnnujnhuz285WYYXWeprb ezzhm8709LpaojxjmJuly 14, 2020 12:00amJan2021 2:10pmNifedipine 30 mg Tablet Extended Release 97gdEncpop09YGZSUteia October 02, 2018 12:00amUnknownAspirin 81 mg Tablet,Delayed Release (Dr/Ec) Kuwgrtgypefd86QACEDviutGyringji 2018 12:00amSeptember 2019 7:52am Losartan-Hydrochlorothiazide 100-25 mg jrkkeuWygwzrzidrlb6CGUNXCfawxFvrjnobj 2018 12:00amSeptember 2019 7:43amMetoprolol Tartrate 50 mg Tablet Zasyjspfodme16TLMTAladd dailyFebruary 2018 12:00amSeptember 2019 12:58pmPotassium Chloride 20 mEq Tablet Extended JtnrphgHlupvvhqubuq18ONGGOUlquu morningFebruary 2018 12:00amAugust 2023 1:59pmValsartan- Hydrochlorothiazide 320-25 mg SqpebvQxsyfrwbmvzs0HOEYTEeuqc morningSeptember 2019 11:00pmJuly 2024 1:54pmApixaban (Eliquis) 5 mg Tablet Jlavcxlnqeea1DCBKOoeos dailySeptember 2019 11:00pmMay 2023 1:05pm Furosemide 20 mg iwrjdiFoodvdqnqvvz15KZPUIwnux dailySeptember 2019 11:00pm July 06, 2020 4:50pmSotalol 80 mg MjfqybPklrwnklubfr93TFQEX69L436500 May 04, 2020 11:00pmMay 2023 1:06pmSildenafil (Viagra) 100 mg KprvetDlrbddnwqmey09TCITZclqp as needed for Erectile DysfunctionJanuary 2021 12:00amNovember 2023 10:02amValsartan 320 mg bivwjuBdrxrbiswhax661JL PODailyJuly 2024 11:00pmSeptember 2024 8:40amPrednisone 20 mg tablet Bwlhwe25ZAXTGdkon1867Xdqixqc 2024 12:18pmUnknownAspirin (Adult Low Dose Aspirin) 81 mg tablet,delayed release (DR/EC)Yqiwkn86LNRZPimdmBre 2023 11:00pmUnknownNebivolol 5 mg cbhrdiYvpfnh7BCWDVavzvPeh 2023 11:00pmUnknown Doxazosin 4 mg zatmvgCgtkfyqqokui2ICLBSmuki at bedtimeMay 2023 11:00pm May 27, 2025 11:58amMeloxicam 15 mg svigcxNljygxctubwt38GTNNFwslrQxq 2023 11:00pmAugust 2023 1:59pmValsartan-Hydrochlorothiazide 320-25 mg usbjfyXjrimo5YLTSSVlsfaWymrtkrsz 18th, 2025 11:00pmUnknown Procedures Procedure Date Performed Status US spleen May 12, 2025 7:40am comp leted Relevant Diagnostic Tests and/or Laboratory Data Laboratory Results Test Collection Date/Time Result Date/Time Result Interpretation Reference Range Result Comment Performing Site Corrected White Blood Count May 12, 2025 8:36am May 12, 2025 9:33am 24.7 10*3/uL Above high normal 4.1-10.5 [facility] [id number] [address] [facility] [address]Ixmeyjcrbdw WBC CountSept2024 8:36amSeptember 2024 9:33am24.7 10*3/uLAbove high normal4.1-10.5[facility] [id number] [address] [facility] [address]Jjd Blood CountSeptember 2024 8:36amSeptember 2024 9:33am2.39 10*6/uLBelow low normal3.90-5.60[facility] [id number] [address] [facility] 87842DipvyafrztTbefmhvnf 2024 8:36amSeptember 2024 9:33am8.9 g/dLBelow low noikgk58.0-17.0[facility] [id number] [address] [facility] 98358XkpxndabhuQrrgykiyr 2024 8:36amSeptember 2024 9:33am26.6 %Below low .8-50.0[facility] [id number] [address] [facility] [address]233Msgu Corpuscular VolumeSeptember 2024 8:36amSeptember 2024 9:03nh935.3 fLAbove high yyhcfo72.5-101[facility] [id number] [address] [facility] [address]Tcur Corpuscular HemoglobinSeptember 2024 8:36amSeptember 2024 9:33am37.3 pgAbove high .5-35.2FF[facility] [id number] [address] [facility] [address]4795Qvje Corpuscular Hemoglobin ConcentSeptember 2024 8:36am May 12, 2025 9:33am33.5 g/dL32.5-35.6FF[facility] [id number] [address] [facility] 17457Zbg Cell Distribution WidthSeptember 2024 8:36amSeptember 2024 9:33am16.6 %Above high zdtjog72.0-14.8[facility] [id number] [address] [facility] 255[address]Ggzgilwi CountSeptember 2024 8:36amSeptember 2024 9:35wp609 10*3/wW930-647IlcojsohpUniversity [facility]als [facility] [id number] [address] [facility] 08237Mkdn Platelet VolumeSeptember 2024 8:36amSeptember 2024 9:33am7.0 fL6.6-10.1FF[facility] [id number] [address] [facility] [address]Obfdaxhgusy (%) (Auto)May 12, 2025 8:36amSeptember 2024 10:09am22.4 %.[facility] [id number] [address] [facility] 24661Glmyuvqrklz (%) (Auto)May 12, 2025 8:36amSeptember 2024 10:09am74.6 %.[facility] [id number] [address] [facility] [address]Uzgpalkgr (%) (Auto)May 12, 2025 8:36amSeptember 2024 10:09am2.6 %.[facility] [id number] [address] [facility] [address]Tagjqzrupjs (%) (Auto)May 12, 2025 8:36amSeptember 2024 10:09am0.1 %.[facility] [id number] [address] [facility] [address]Peolobzjh (%) (Auto)May 12, 2025 8:36amSeptember 2024 10:09am0.3 %.[facility] [id number] [address] [facility] [address]Aheffgoob RBC Relative Count (auto)May 12, 2025 8:36am May 12, 2025 10:09am0.1 /100{WBC}0-0.5FF[facility] [id number] [address] [place] [address]184470Neutrophils # (Auto)May 12, 2025 8:36amSeptember 2024 10:09am5.5 10*3/uL1.8-7.7FF[facility] [id number] [address] [place] [address]184470Lymphocytes # (Auto)May 12, 2025 8:36amSeptember 2024 10:09am18.5 10*3/uLAbove high normal1.00-4.8[facility] [id number] [address] [facility] [address]Yviuzphwd # (Auto)May 12, 2025 8:36amSeptember 2024 10:09am0.6 10*3/uL0.0-0.8[facility] [id number] [address] [facility] [address]Kqyhuffcvlj # (Auto)May 12, 2025 8:36amSeptember 2024 10:09am0.0 10*3/uL0.0-0.45[facility] [id number] [address] [place], [place] [address]70Basophils # (Auto)May 12, 2025 8:36amSeptember 2024 10:09am0.1 10*3/uL0.0-0.2[facility] [id number] [address] [facility] [address]Thajwzzpf NeutrophilsMay 2024 6:10amMay 2024 8:32am 39 %Below low eajybe07-41TnxmvognaUniversity Hospitals [facility]ma [facility] [id number] [address] [facility] [address]Jmva Neutrophils %January 13, 2025 6:10amMay 2024 8:32am2 % 0-5[facility] [id number] [address] [facility] [address]Sqfrbkwhubp %January 13, 2025 6:10amMay 2024 8:32am48 % Above high gxofzc07-54XrvmrxukhUniversity Hospitals [facility] [id number] [address] [facility] [address]64Hlnszsrf LymphocytesMay 2024 6:10amMay 2024 8:32am2 %0-12[facility] [id number] [address] [facility] [address]151Zziazithz %January 13, 2025 6:10amMay 2024 8:32am6 %2-11 [facility] [id number] [address] [facility] 487[address]Qbqopoaddvx %January 13, 2025 6:10amMay 2024 8:32am4 %Above high normal1-3FF[facility] [id number] [address] [facility] 94326Sov Blood Cell MorphologySeptember 2024 8:36amSeptember 2024 10:09[facility] [id number] [address] [facility] 98292DkwrchdxgjfhrXejzqmgfe 2024 8:36amSeptember 2024 10:09amModerateUniversity Hospitals Parma [facility] Center [facility] [id number] [address] [facility] [address]OwmtddeeznfeiHaofplczn 2024 8:36amSeptember 2024 10:09[facility] [id number] [address] [facility] 24219XhgokhusroktUrtgxgfzm 2024 8:36amSeptember 2024 10:09[facility] [id number] [address] [facility] [address]3930LpfapzhgngpmYskoqzhbm 2024 8:36amSeptember 2024 10:09amMarkedFFirelands Regional Medical Center [facility] [id number] [address] [facility] 29472Rmib Drop CellsSeptember 2024 8:36amSeptember 2024 10:09amSlightUniversity Hospitals [facility] [id number] [address] [facility] [address]85Djeoav CellsJune 2023 5:11amJune 2023 7:03amModerate [facility] [id number] [address] [facility] [address]Esthgsyo EstimateSeptember 2024 8:36amSeptember 2024 10:09amNormalNormalUniversity [facility]als [facility] [id number] [address] [facility] [address]Bbysk PlateletsMay 2024 6:10amMay 2024 8:32am1 /100{WBC}[facility] [id number] [address] [facility] [address]Jlerxihe Morphology CommentSeptember 2024 8:36amSeptember 2024 10:09amNormalNormFirelands Regional Medical [facility] [id number] [address] [facility] 158[address]SJK CommentJune 2023 5:11amJune 2023 7:00amSee commentSlide referred to pathologist for reviewUniversity [facility]als [facility] [id number] [address] [facility] 01584Nbuccefsixw Sedimentation RateSeptember 2024 8:36am May 12, 2025 10:18am< 1 mm/hr0-19[facility] [id number] [address] [facility] [address]Evelkfp LevelSeptember 2024 8:36amSeptember 2024 9:52am88 mg/jN29-758HHY recommended reference rangeRandom Glucose Reference Range is dependent on time and content of last meal. Glucose of more than 200 mg/dL in a nonstressed, ambulatory subject supports the diagnosisof Diabetes Mellitus.[facility] [id number] [address] [facility] [address]Jekvj Urea NitrogenSeptember 2024 8:36amSeptember 2024 9:52am20 mg/dL7-25[facility] [id number] [address] [facility] [address]LrohamnjjhKrnlcvyga 2024 8:36amSeptember 2024 9:52am0.92 mg/dL0.70-1.30[facility] [id number] [address] [facility] 45657Akoqyqmxl GFR (CKD-EPI)May 12, 2025 8:36amSeptember 2024 9:52am> 60.0 mL/MinUniversity Hospitals [facility] [id number] [address] [facility] 319[address]Uwqfcv LevelSeptember 2024 8:36amSeptember 2024 9:98im529 mmol/Y499-447DmpwaildsUniversity Hospitals Parma Medical Center [facility] [id number] [address] [facility] 319[address]Zriphbuwp LevelSeptember 2024 8:36amSeptember 2024 9:52am3.6 mmol/L3.5-5.1FF[facility] [id number] [address] [facility] 69[address]Atzquram LevelSeptember 2024 8:36amSeptember 2024 9:23qz730 mmol/B25-101EihlmuieiUniversity Hospitals Parma [facility] [id number] [address] [facility] 05555Monsde Dioxide LevelSeptember 2024 8:36amSeptember 2024 9:52am34.3 mmol/LAbove high cqgfyl08.0-31.0[facility] [id number] [address] [facility] 17328Auqcd GapSeptember 2024 8:36amSeptember 2024 9:52am 7.3 mEq/L6.0-15.0[facility] [id number] [address] [facility] [address]Ficotcn LevelSeptember 2024 8:36amSeptember 2024 9:52am8.7 mg/dL8.6-10.3FF[facility] [id number] [address] [facility] 75449Dvwtr ProteinSeptember 2024 8:36amSeptember 2024 9:52am5.8 g/dLBelow low normal6.4-8.9[facility] [id number] [address] [facility] 28143OnzbobhUmvsoiiqc 2024 8:36amSeptember 2024 9:52am 4.2 g/dL3.5-5.7FF[facility] [id number] [address] [facility] 40769KqkmlptfAuirqiadg 2024 8:36amSeptember 2024 9:52am 1.6 g/dLUniversity Hospitals Parma [facility] [id number] [address] [facility] 15415Vpxyhip/Globulin RatioSeptember 2024 8:36amSeptember 2024 9:52am2.6FF[facility] [id number] [address] [facility] 21590Xfkre BilirubinSeptember 2024 8:36amSeptember 2024 9:52am3.4 mg/dLAbove high normal0.3-1.0Samples from patients who have taken Naproxen have shown spurious elevation in Total Bilirubin levels. A metabolite of Naproxen, O-desmethylnaproxen, has been shown to interfere with the Jendrassik-Grof method for measuring Total Bilirubin.[facility] [id number] [address] [facility] [address]700Yxqzeecib Amino Transf (AST/SGOT)May 12, 2025 8:36am May 12, 2025 9:52am28 U/P26-85PweoptxlsUniversity Hospitals Parma [facility] Center [facility] [id number] [address] [facility] 69781Qgumpfm Aminotransferase (ALT/SGPT)May 12, 2025 8:36am May 12, 2025 9:52am23 U/L7-52[facility] [id number] [address] [place] [address] 31441Lwvfwpqi PhosphataseSept2024 8:36amSeptember 2024 9:52am69 U/T54-475PgbsxotxeUniversity Hospitals [facility] [id number] [address] [facility] 21528Zwprkvf DehydrogenaseMay 2024 6:10amMay 2024 7:09am 310 U/LAbove high clupgs501-129ThhbegwfqUniversity [facility]als [facility] [id number] [address] [facility] 76854Hrxs LevelSeptember 2024 8:36amSeptember 2024 9:43qi582 ug/xP99-030JlpubxjwlUniversity Hospitals [facility] [id number] [address] [place] [address] 35083Nedzr Iron Binding CapacitySeptember 2024 8:36amSeptember 2024 9:59as892 ug/aU586-403EhmbnjcoaUniversity Hospitals [facility] [id number] [address] [place] [address] 44216Vvck SaturationSeptember 2024 8:36amSeptember 2024 9:52am46.2 %20-50[facility] [id number] [address] [place] [address] 23111OfnbcksqfwgLnvgosxyw 2024 8:36amSeptember 2024 9:44gt577 mg/zP228-519NeeohwgixUniversity Hospitals Parma [facility] Center [facility] [id number] [address] [place] [address] 86810TmnffizsEnzojxnay 2024 8:36amSeptember 2024 10:14am 179.1 ng/mL23.9-336.2FF[facility] [id number] [address] [facility] [address]46Uzgyhss B12 LevelSeptember 2024 8:36amSeptember 2024 10:76em646 pg/uC610-606TjrbezrtgUniversity Hospitals Parma [facility] [id number] [address] [place] [address] 66653IehonlHwoviusow 2024 8:36amSeptember 2024 10:17am 19.3 ng/mL>5.9Folate reference range: >5.9 ng/mlThe WHO technical consultation on folate and vitamin i61nlrmyvwbsecy has determined that folate concentrations lessthan 4 ng/ml are considered deficient.[facility] [id number] [address] [facility] 13257BmqkejqwarlKnpomwirv 2024 8:36amSeptember 2024 10:59am< 30 mg/dLBelow low ylpmll82-271CmbouhevnUniversity Hospitals [facility] [id number] [address] [place] [address] 26714Qhdhgtop Creatinine Clearance (ChemSeptember 2024 8:36am May 12, 2025 9:52am87.86[facility] [id number] [address] [place] [address] 8218321-Kegaxqm Vitamin D TotalAugust 2023 2:51pmSeptember 2023 1:36pm53 ng/mL.Reference Range:All Ages: Target levels 30 - 100[facility] ,25 Dihydroxy Vitamin I6Zvhjff 2023 2:51pmSeptember 2023 1:36pm<1.0 ng/mL.This test was developed and its performance characteristicsdetermined by [employer]. It has not been cleared or approvedby the Food and Drug Administration.[facility] Vitamin E4Viptbr 2023 2:51pmSeptember 2023 1:36pm52 ng/mL.This test was developed and its performance characteristicsdetermined by [employer]. It has not been cleared or approvedby the Food and Drug Administration.Performed at: [facility] [address] [id number] Director: Johnnie Jansen MD, Phone: [phone] Diagnostic Imaging Reports Author Joey Curry [facility], Cancer CenterAuthoredSeptember 2024 1:03pmReport Dictated Date/TimeDictated ByStatusRadiology ReportSept2024 1:03pm Leighann NievesMount [facility]. [facility] [address] [place] [address] Ultrasound Report Signed Patient: Yuri Shine MR#: [id number] : 1960 Acct:[id number] Age/Sex: 64 / M ADM Date: 5 Loc: XT Room: Type: [facility] RCR Attending Dr: Christian Carlos II DO Ordering Provider: Christian Carlos II, DO Date of Service: 05/12/25 US/US spleen: D72.820 - Lymphocytosis (symptomatic) Copies to: Christian Carlos II, DO~ Ultrasound of the spleen No priors. HISTORY: Lymphocytosis. Lymphocytic leukemia. Abdominal pain. The spleen measures 15.6 x 7.7 x 15.9 cm. No splenic lesion. No perisplenic abnormality. US/US spleen IMPRESSION: Splenomegaly. Impression dictated by: Joey Curry M.D. 05/12/2025 1:08 PM Dictation Location: [place] [address] Tech: Caterinamarietta Sandovaler Transcribed By: WADE 05/12/25 1308 Dictated By: Joey Curry DO 05/12/25 1303 Signed By: <Electronically signed by Joey Curry DO in OV> 05/12/25 1308 Vital Signs Vital Reading Result Reference Range Collection Date/Time Height 72 [in_i] May 13, 2025 8:33eaNmuzdn67.08 kgSept2024 8:38amBody Zkmmvtmxvgc30.2 [degF]97.6-99.0May 13, 2025 8:38amHeart Rate66 /min 60-100May 13, 2025 8:38amRespiratory rate16 /fbf22-47Pdhqxodrs 19th, 2025 8:38amOxygen saturation by Pulse %95-100May 13, 2025 8:38amBP Vduhogpd954 mm[Hg]100-140Sept2024 8:38amBP Sieaqfynt23 mm[Hg]60-100Sept2024 8:38amBMI (Body Mass Index)26.0 kg/h3NqbodewdcMay 13, 2025 8:17mnDbynrr19 [in_i]May 13, 2025 8:54yjQgqqfs82.08 kg May 13, 2025 8:44neAxpmno34 [in_i]May 27, 2025 11:16uhFyydzq43.45 kgMay 27, 2025 11:51amBody Zisjlameuda38.8 [degF]97.6-99.0Octten [facility] 2024 11:51amHeart Rate65 /fvo68-999Ikhmfcp 3rd, 2025 11:51amRespiratory rate16 /min 12-24May 27, 2025 11:51amOxygen saturation by Pulse igstjxfc52 %95-100 May 27, 2025 11:51amBP Wusvsgqo544 mm[Hg]100-140Oct2024 11:51amBP Tphjtdtin99 mm[Hg]60-100Oct2024 11:51amBMI (Body Mass Index)26.4 kg/w2Yjouxri 2024 11:01mtWzwpyn20 [in_i]July 08, 2025 9:18amWeight 91.62 kgHigh[facility] 2024 9:18amBody Xycpeyfkdho72.8 [degF]97.6-99.0Novdiamond [facility]'s medical [facility] 2024 9:18amHeart Rate84 /fjn61-137Bryrfyfn 14th, 2025 9:18amRespiratory rate16 /ens54-53Wwvvszqi 2024 9:18amOxygen saturation by Pulse uzhrvhmt53 %95-100July 08, 2025 9:18amBP Kqusqjtp764 mm[Hg]100-140Nov2024 9:18amBP Lkwiutyld45 mm[Hg]60-100Nov2024 9:18amBMI (Body Mass Index)27.3 kg/c0Jkfxdeai 2024 9:36nbFdptfw05 [in_i]July 08, 2025 9:98ueLysljc92.62 kgHighlands Arh [facility] Center 2024 9:18am Advance Directives Advance Directive Response Recorded Date/ Time Advance Directives No September 29, 2018 11:32am Insurance Providers Guarantor Yuri Giles R[employer] Address [address] [address]Igxuhve Info.Home Phone: Coverage Status Update:2025 Payer Group Member ID Coverage Type Subscriber Relationship to Subscriber Effective Date Expiration Date [employer] Id: [id number] S [place] Id: [id number] [address] [address] Home Phone: Email: [email or web address] Services Id: [id number] S [place] Id: [id number] [address] [place] [phone] Home Phone: Email: [email or web address] S [place] Id: [id number] [address] [place] [phone] Home Phone: Email: [email or web address] Claims [id number] S [place] Id: [id number] [address] [place] [phone] Home Phone: Email: [email or web address] Encounters Encounter Location(s) Arrival/Admit Date Discharge/Departure Date Discharge/Departure Disposition Provider(s) Departed Physician/ Provider Office Visit -[facility] Ambulatory May 13, 2025 9:24am May 13, 2025 10:12am Discharged to home care or self care (routine discharge) SKYE Hale Non-patient / Non-visit -Cancer Center Acute May 13, 2025 9:30am Christian Carlos II DODeparted Physician/Provider Office Visit-[facility] AmbulatoryOctober 2024 12:40pmOctober 2024 1:28pmDischarged to home care or self care (routine discharge)Christian Carlos II DODeparted Physician/Provider Office [facility] 9:13amNovember 2024 9:45amDischarged to home care or self care (routine discharge)Christian [facility]eg[facility] July 08, 2025 9:20amChristian Carlos II DO Recent Diagnosis Onset Date Admit Date Autoimmune hemolytic anemia Unknown Apr 9:24am CLL (chronic lymphocytic leukemia) Unknown May 13, 2025 9:24am Assessments Diagnosis Onset Date Resolution Status Admit Date Autoimmune hemolytic anemia acuteSeptember 2024 9:24amCLL (chronic lymphocytic leukemia)acuteSeptember 2024 9:24am Plan of Treatment Future Tests Future scheduled test information is unavailable Pending Tests Test Name Ordered Date Scheduled Date Comprehensive Metabolic Panel May 27, 2025 12:13pm Comprehensive Metabolic PanelOctober 2024 12:13pmComprehensive Metabolic PanelOct2024 12:13pmHaptoglobinOctober 2024 12:22pmHaptoglobin May 27, 2025 12:22pmType and ScreenOctober 2024 12:23pm6 Weeks Comprehensive Metabolic PanelNovember 2024 9:39am4 WeeksHaptoglobin July 08, 2025 9:39am4 WeeksComprehensive Metabolic PanelSeptember 2024 8:59amComprehensive Metabolic PanelSeptember 2024 8:59amComprehensive Metabolic PanelSeptember 2024 8:59amHaptoglobinSeptember 2024 9:01am Future Visits Future appointment information is unavailable Future Procedures Procedure Name Ordered Date Scheduled Date Complete Blood Count Auto Diff May 27, 2025 12:13pm Complete Blood Count Auto DiffOct2024 12:13pmComplete Blood Count Auto DiffOct2024 12:13pmDirect CoombsOctober 2024 12:22pm6 WeeksLDH Lactate DehydrogenaseOctober 2024 12:13pmLDH Lactate DehydrogenaseOctober 2024 12:13pmLDH Lactate DehydrogenaseOctober 2024 12:13pmProtein Electrophoresis, SerumOctober 2024 12:25pm6 WeeksComplete Blood Count Auto DiffNovember 2024 9:38am2 WeeksComplete Blood Count Auto DiffNovember 2024 9:39am4 WeeksDirect CoombsNovember 2024 9:39am4 Weeks Erythrocyte Sedimentation RateNovember 2024 9:39am4 WeeksLDH Lactate DehydrogenaseNovember 2024 9:38am2 WeeksLDH Lactate DehydrogenaseNovember 2024 9:39am4 WeeksComplete Blood Count Auto DiffSeptember 2024 8:59amComplete Blood Count Auto DiffSeptember 2024 8:59amComplete Blood Count Auto DiffSeptember 2024 8:59am Future Medications Future medication information is unavailable Patient Instructions Patient instructions are unavailable Progress Note Author Christian Carlos [facility] CenterNote Date/TimeNovember 2024 9:39am 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 to 60mg for 2 wks then 40g for two weeks, then 20mg x 1 week, then f/uwith me. cbc, ldh in 2 wks at [place]. cbc, cmp, haptoglobin, chery, ldh, esr, prior in 4 wks herre (prior to f/u in 5wks). CHEMO PLAN Treatment Plan Obinutuzumab for CLL Q28D Clinical Indication No Indication Cycle Number Last Admin Cycle Day Next Admin No Active Chemotherapy History of Present Illness HPI ASSESSMENT/PLAN AIHA secondary to CLL Started on 80mg prednisone with 1mg folic acid on 05/06/25 by 05/26 hb up to 11.2. felt 80% better. by 07/07/25. Haptoglobin 52 hb 12.8, mcv 100.7. will start prednisone taper. to 60mg for 2 wks then 40g for two weeks, then f/uwith me. if not more resolved in 6 wks will initiate gazyva venclexta. CLL/SLL No fever sweats or chills or other B symptoms, no evidence of anemia or thrombocytopenia. Flow cytometry returned essentially negative February 2024. attempt at repeat flow in december 2024 and was ordered wrong. After much discussion december 2024 we decided to offer him a bm aspirate and biopsy confirmed CLL. Monitoring, VALENCIA 0, lymphocytosis, no adenopathy. HISTORY OF PRESENT ILLNESS 64-year-old male primary patient of [place]. Initially presented to her in July 2023 with a cough dry cough x 2 weeks and sore throat. 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 Medical history includes hypertension, hyperlipidemia, sleep apnea, atrial fibrillation. He had cardioversion and ablation in the past for the afib. He had blood testing 2 times in November 2023 which revealed normal kidney and liver function studies.His albumin was 3.8. His white blood cell count was elevated at 17.2 with a hemoglobin of 14.9 and an MCV of 91.4. Platelet count of 121,000. He was 71% lymphocytes. Repeat testing in January 01, 2024 showed white blood cell count still at 16.9 thousand, platelet count 133,000, absolute lymphocyte count was 12,000. He denies fevers sweats chills. he notes more fatigue than he was used to in his adult life. No unexplained wt loss. since cardioversion and ablation he is no longer on eliquis. at consult in mid 2023, has been on vitamin D, C, and a B complex 01/21/25 energy is still poor. he notes he feels like fatigue all the time. He retires in 25 days and he is optimistic this may help. he is exhausted. Every night hesleeps 7 or 8 hours and sleeps well. he is more exhausted than he was a few months ago. dies not smoke. No night sweats. 03/04/25 he continues with fatigue. no other new complaints. his bm biopsy from february 2024 noted involvement by a b cell CLL/SLL accounting for 10 to 15% of marrow space involvement. otherwise hypercellular 50 to 60 percent and homozygous deletion of ljfyydhcfi92j on FISH panel. IGHV negative. 05/06/25 got labs at [facility]. his called us this morning to make sure we got his labs sooner. She notes hehas been a bit yellow. He notes more exhausted than normaland yellow skin and eyes. She notes prominent microvasculature on his hands, doesn't look like a rash. fatigue is overwhelming, full faster than normal. He has dark urine. Dizzy when going up the stairs. i will start prednisone 80mg daily. check cbc, cmp, haptoglobin, cooombs type and scrreen, b12, folate, iron studies next friday. also start 1mg daily folic acid. check cbc, cmp, haptoglobin, type and screen next in anticipation of /fu with me as scheduled friday. check US spleen. 05/13/25 Still has fatigue. This is 60% better. and patient report some improvement in his yellow skin discoloration Tolerating prednisone okay. Still working and staying active. 05/26/25 hb up to 11.2. feels 80% better. mcv 107.2. still on prednisone 80mg back to working and being active. he admits he has slowed down. no lumps or bumps. 07/08/25 hb up to 12.8, mcv 100.8. not sleeping well, crusting of eyes bilaterally. deferring treatment of cll. currently on prednisone 80, will start taper. PHYSICAL EXAMINATION ECOG PS:0 General : patient is alert and oriented to person place and time, no acute distress. Neck: no JVD or thyromegaly. Lymph: no cervical, supraclavicular, axillary adenopathy. Heart: regular rate and rhythm no murmurs rubs or gallops. Abdomen: soft, nontender,, nondistended, no hepatosplenomegaly. Lungs: clear to auscultation bilaterally. No wheezes, rales, rhonchi. Extremities: no clubbing cyanosis Intake Vitals/Pain Assessment 07/08/25 09:18 Height 6 ft Weight 91.626 kg BMI 27.3 Body Fat % 42.39 BP 137/73 Blood Pressure Location Lt brachial Position Sitting Temp 97.8 F Temp Source Temporal Pulse 84 Pulse Source NIBP Respiration 16 Pulse Oximetry (%) 98 Oxygen Delivery Method room air Are you having pain? No Intake Visit Reasons: Follow Up 6 Weeks, Follow up visit Accompanied by: Self Allergies No Known Allergies Allergy (Verified 07/08/25 09:24) Home Medications - Last Reconciled 07/08/25 by CRUZ Diaz aspirin (Adult Low Dose Aspirin) 81 mg PO DAILY folic acid 1 mg PO DAILY nebivolol 5 mg PO DAILY nifedipine ER 30 mg PO DAILY prednisone 80 mg (4 x 20 mg) PO DAILY valsartan-hydrochlorothiazide 320-25 mg 1 tab PO DAILY Gastrointestinal Is the patient taking opioids for pain control?: No Falls Fall Precaution Measures Taken: Patient in chair Nurse's Note: Patient is here today for a follow up visit. [facility] Medical History Medical History (Updated 05/13/25 @ 11:25 by SKYE Hale) CLL (chronic lymphocytic leukemia) Lymphocytosis Kidney stone March 2023-removed History of torn meniscus of right knee DMITRY on CPAP Problem List clean-up per [facility] of Phys[facility] A-fib Problem List clean-up per request of Phys. [facility] Hypertension Problem List clean-up per request of Phys. [facility] Surgical History Surgical History History of surgery on right wrist excision of mass right wrist 07/14/2020 H/O cardiac radiofrequency ablation History of vasectomy Problem List clean-up per request of Phys. [facility] Family History Family History Father [place] disease Father Mother Cancer Endometrial Cancer Grandparent [...] Dictated By: Christian Carlos II, DO DD/ 7 Signed By: <Electronically signed by Christian Carlos, II, DO> 07/08/25 0923
--- OUTSIDE RECORDS SUMMARY | 2025-07-15 11:17 | XMS_ITS | Encounter Summary ---
Author Organization [facility] Address [address] [place] [address] Care Team Providers Care Pull Over Machine Operator Name Role Phone Linda Jansen Primary Care Provider [phone] Encounter Details DateTypeDepartmentCare Team (Latest Contact Info)Fpjotpaxlsl12/17/2025bstract [facility] [address] [place] [id number] Linda Jansen PA [address] [place] [address] Social History Tobacco UseTypesPacks/DayYears UsedDateSmoking Tobacco: NeverSmokeless [...] times a week08/06/2023How often do you attend caodaism or yarsani services?1 to 4 times per year08/06/2023o you [...] at all 08/06/2023HQ-2AnswerDate RecordedPatient Health Questionnaire-2 Score0 03/01/2025[facility] [place] [facility] - Occupational Stress QuestionnaireAnswerDate RecordedDo you feel stress - tense, restless, nervous, or anxious, or unable to sleep at night because yourmind is troubled all the time - these days?Only a nehbfe9308/06/2023Exercise Vital SignAnswerDate Recorded On average, how many [...] MemberRelationshipSpecialtyStart DateEnd Date Linda Jansen PA [address] [facility] [address] [place] [address] PCP - GeneralFamily Lxmgvxmd44/13/23documented as of this encounter
--- OUTSIDE RECORDS SUMMARY | 2025-07-15 11:17 | XMS_ITS | Patient Health Record ---
Author Organization [facility] Address [address] [place] [address] Care Team Providers Care Youth Worker Name Role Phone Vivien Ye MD Primary [...] o steoarthritis of the ankle and/or foot ([id number]) Primary osteoarthritis, unspecified ankle and foot (M19.079) Activeconfirmed Plan Of Treatment No Information Insurance Providers Payer Name Payer Address Payer Phone Subscriber Number Group Number Insured Name Patient Relationship to Insured Coverage Start Date Coverage End Date [employer] [address] [place] [id number] 2022 Yuri Shine Self - patient is the insured Medical (General) History Medical History History ICD Code Essential (primary) hypertension I10 Kidney Stone Surgical History Surgery Date(Month/Year) Kidney Stone Removal 05/17 Hospitalization History Reason Date(Month/Year) see above
--- OUTSIDE RECORDS SUMMARY | 2025-07-15 11:17 | XMS_ITS | Encounter Summary ---
Author Organization [facility] Address [address] [place] [address] Care Team Providers Care Steam Finisher Name Role Phone Linda Jansen Primary Care Provider [phone] Encounter Details DateTypeDepartmentCare Team (Latest Contact Info)Qwdmvisgdoi33/13/2025Clinisync Result Encounter [facility] Unsolicited Provider, [...] times a week08/06/2023How often do you attend mormonism or mu-ism services?1 to 4 times per year08/06/2023o you belong to any clubs or organizations such as mormonism groups, unions, fraternal [...] at all 08/06/2023HQ-2AnswerDate RecordedPatient Health Questionnaire-2 Score0 03/01/2025[facility] [place] [facility] - Occupational Stress QuestionnaireAnswerDate RecordedDo you feel stress - tense, restless, nervous, or anxious, or unable to sleep at night because yourmind is troubled all the time - these days?Only a akopll6708/06/2023Exercise Vital SignAnswerDate Recorded On average, how many [...] as of this encounter Procedures Procedure NamePriorityDate/TimeAssociated DiagnosisCommentsPROTEIN ELECTRO.,S Xzxinin7607/07/2025 6:40 AM EST [facility] DIRECT ANTIGLOBULIN KNDEJnofvvg15/13/2025 6:40 AM EST [facility] OOJDNUAJTPPQeplctn52/13/2025 6:40 AM EST [facility] ANTIBODY MKSywgfvf09/13/2025 6:40 AM EST [facility] CMP (CMP) (FOR REMOTE [facility] USE)Hludkec6107/07/2025 6:40 AM EST ALL TYPE AND FFJSRGDwmwjqz50/13/2025 6:40 AM EST ALL EFPTccoldt83/13/2025 6:40 AM EST ALL CBC WITH AUTO OQXPCftxfee28/13/2025 6:40 AM EST documented in this encounter Results * [facility] ANTIBODY ID (07/07/2025 6:40 AM EST)ComponentValueRef RangeTest Method Analysis TimePerformed AtPathologist SignatureTB ANTIBODY ID [facility] Comment: LE WARM Auto-Anti-D Auto-Anti-e Nonspecific Reactivity Antibody Identification performed by [employer] [employer] [facility] Immunohematology Reference Laboratory Specimen (Source)Anatomical Location / LateralityCollection Method / Volume Collection TimeReceived Time07/07/2025 6:40 AM EST07/07/2025 6:42 AM EST Narrative CLINISYNC - 07/13/2025 2:50 PM EST [facility] , ?? Authorizing ProviderResult TypeResult StatusGeneric External Data Provider CLINISYNCFinal ResultPerforming OrganizationAddressCity/State/[facility] CodePhone Number [facility] * (ABNORMAL) PROTEIN ELECTRO.,S (07/07/2025 6:40 AM EST)ComponentValueRef Range Test MethodAnalysis TimePerformed AtPathologist SignaturePROTEIN, TOTAL5.4(A) 6.0 - 8.5 g/dLTBHALBUMIN3.22.9 - 4.4 g/yYENCHGYEC-5-JSOPIOKK6.30.0 - 0.4 g/dL YMBEKEKQ-3-BLIXWAVF0.50.4 - 1.0 g/dLTBHBETA GLOBULIN0.90.7 - 1.3 g/dLTBHGAMMA GLOBULIN0.50.4 - 1.8 g/dLTBHM-SPIKENot ObservedNot Observed g/dLTBHGLOBULIN, TOTAL2.22.2 - 3.9 g/dLTBHA/G RATIO1.50.7 - 1.7TBHPLEASE NOTE:Comment.[facility] Comment: Protein electrophoresis scan will follow via computer, mail, or batch operator delivery. Performed at: ?? - [facility] [address] ??[id number] Product Design Manager: Chad Mccall PhD, Phone: ??[phone] Specimen (Source)Anatomical Location / LateralityCollection Method / Volume Collection TimeReceived Time07/07/2025 6:40 AM EST07/07/2025 6:42 AM EST Narrative CLINISYNC - 07/08/2025 3:08 PM EST Authorizing ProviderResult TypeResult StatusGeneric External Data ProviderLAB BLOOD ORDERABLESFinal ResultPerforming OrganizationAddressCity/State/[facility] Code Phone Number [facility] * (ABNORMAL) [facility] DIRECT ANTIGLOBULIN TEST (07/07/2025 6:40 AM EST)Component ValueRef RangeTest MethodAnalysis TimePerformed AtPathologist Signature POLYSPECIFIC AHG4+(A)TBHSpecimen (Source)Anatomical Location / Laterality Collection Method / VolumeCollection TimeReceived Time07/07/2025 6:40 AM EST 07/07/2025 6:42 AM EST Narrative CLINISYNC - 07/13/2025 2:[address] [facility] , ?? Authorizing ProviderResult TypeResult StatusGeneric External Data Provider CLINISYNCFinal ResultPerforming OrganizationAddTemple University Hospitalty/[facility] CodePhone Number [facility] * [facility] HAPTOGLOBIN (07/07/2025 6:40 AM EST)ComponentValueRef RangeTest Method Analysis TimePerformed AtPathologist PdmggrrkbZJJTYBJFLZG2978 - 363 mg/dLTBH Comment: Performed at: ??CB - [facility] [address] ??[id number] Product Design Manager: Chad Mccall PhD, Phone: ??[phone] Specimen (Source)Anatomical Location / LateralityCollection Method / Volume Collection TimeReceived Time07/07/2025 6:40 AM EST07/07/2025 6:42 AM EST Narrative CLINISYNC - 07/08/2025 7:08 AM EST Authorizing ProviderResult TypeResult StatusGeneric External Data Provider CLINISYNCFinal ResultPerforming OrganizationAdd[facility] CodePhone Number [facility] * (ABNORMAL) ALL LDH (07/07/2025 6:40 AM EST)ComponentValueRef RangeTest Method Analysis TimePerformed AtPathologist SignatureLACTATE PWHXRKJIQXXEY596(H)85 - 227 U/LTBHSpecimen (Source)Anatomical Location / LateralityCollection Method / VolumeCollection TimeReceived Time07/07/2025 6:40 AM EST07/07/2025 6:42 AM EST Narrative CLINISYNC - 07/07/2025 9:37 AM EST Authorizing ProviderResult TypeResult StatusGeneric External Data Provider CLINISYNCFinal ResultPerforming OrganizationAddTemple University Hospitalty/State/[facility] CodePhone Number [facility] * (ABNORMAL) [facility] CMP (CMP) (FOR REMOTE [facility] USE) (07/07/2025 6:40 AM EST) ComponentValueRef RangeTest MethodAnalysis TimePerformed AtPathologist KfmudgisjEFUEIW352918 - 145 mmol/LTBHPOTASSIUM3.93.5 - 5.1 mmol/LTBHCHLORIDE 46096 - 107 mmol/LTBHCARBON YKNDUYE85.5(H)21.0 - 32.0 mmol/LTBHANION GAP5.4TBH TAVVLEZ5688 - 106 mg/dLTBHBLOOD UREA LQBFIAZV41.07.0 - 18.0 mg/dLTBHCREATININE 0.890.70 - 1.30 mg/dLTBHTBH EGFR-AF [place]OUTH [place]OREAN>60>=60 mL/min/1.73m 2TBHTBH EGFR- NON AF [place]>60>=60 mL/min/1.73m 2TBHBUN CREATININE RATIO18.2FWAKVHILLX0.6 8.5 - 10.1 mg/dLTBHBILIRUBIN TOTAL1.6(H)0.2 - 1.0 mg/dLTBHASPARTATE AMINO ZCEPOHRNWIQ8711 - 37 U/LTBHALANINE ZYNOVFWLNYLKZJUL9468 - 63 U/LTBHALKALINE YWSOLDQMIIS3511 - 116 U/LTBHTOTAL PROTEIN5.9(L)6.4 - 8.2 g/dLTBHALBUMIN LEVEL 3.3(L)3.4 - 5.0 g/dLTBHGLOBULIN2.6g/dLTBHALBUMIN GLOBULIN RATIO1.3TBHSpecimen (Source)Anatomical Location / LateralityCollection Method / VolumeCollection TimeReceived Time07/07/2025 6:40 AM EST07/07/2025 6:42 AM EST Narrative CLINISYNC - 07/07/2025 9:37 AM EST Authorizing ProviderResult TypeResult StatusGeneric External Data Provider CLINISYNCFinal ResultPerforming OrganizationAddressCity/State/ZIP CodePhone Number [facility] * ALL TYPE AND SCREEN (07/07/2025 6:40 AM EST)ComponentValueRef RangeTest Method Analysis TimePerformed AtPathologist SignatureBLOOD TYPEO PositiveTBHANTIBODY SCREENPOSITIVETBHSpecimen (Source)Anatomical Location / LateralityCollection Method / VolumeCollection TimeReceived Time07/07/2025 6:40 AM EST07/07/2025 6:42 AM EST Narrative CLINISYNC - 07/13/2025 2:[address] [facility] , ?? Authorizing ProviderResult TypeResult StatusGeneric External Data Provider CLINISYNCFinal ResultPerforming OrganizationAddressCity/State/ZIP CodePhone Number Á[facility] * (ABNORMAL) ALL CBC WITH AUTO DIFF (07/07/2025 6:40 AM EST)ComponentValueRef RangeTest MethodAnalysis TimePerformed AtPathologist SignatureTBH WBC24.0(H) 4.0 - 11.0 10 3/uLTBHTBH RBC3.81(L)4.70 - 6.10 10 6/uLTBHTBH HGB12.8(L)14.0 - 18.0 g/dLTBHTBH HCT38.4(L)42.0 - 54.0 %TBHTBH HVF433.8(H)80.0 - 94.0 fLTBHTBH MCH33.625.9 - 34.0 pgTBHTBH MCHC33.329.9 - 35.2 g/dLTBHTBH RDW13.411.0 - 15.0 %TBHTBH THW182243 - 450 10 3/uLTBHTBH MPV8.7(L)9.5 - 13.5 fLTBHSpecimen (Source)Anatomical Location / LateralityCollection Method / VolumeCollection TimeReceived Time07/07/2025 6:40 AM EST07/07/2025 6:42 AM EST Narrative CLINISYNC - 07/07/2025 7:40 AM EST Authorizing ProviderResult TypeResult StatusGeneric External Data Provider CLINISYNCFinal ResultPerforming OrganizationAddressCity/State/ZIP CodePhone Number ÁNGELA ECHEVARRIA documented in this encounter Visit Diagnoses Not on filedocumented in this encounter Care Teams Team MemberRelationshipSpecialtyStart DateEnd Date Linda Jansen PA [address] [place] [address] PCP - GeneralFamily Bgntrrje07/13/23documented as of this encounter
--- OUTSIDE RECORDS SUMMARY | 2025-07-15 11:18 | XMS_ITS | Clinical Summary ---
Author Organization [facility] Address [address] [place] [address] Phone Care Team Providers Care Warehouse Foreman Name Role Phone Vivien Ye MD Primary Care Provider Social History Tobacco UseTypesPacks/DayYears UsedDateSmoking Tobacco: Never AssessedSex and Gender InformationValueDate RecordedSex Assigned at BirthNot on fileLegal Sex Male07/19/2022 8:47 AM ESTGender IdentityNot on fileSexual OrientationNot on file Last Filed Vital Signs Vital SignReadingTime TakenCommentsBlood Xlhigzws318/8401 2:04 PM EST Tzwby975609/12/2021 2:04 PM ESTTemperature--Respiratory Rate--Oxygen Saturation-- Inhaled Oxygen Concentration--Pepbzy18.1 kg (203 lb)09/12/2021 2:04 PM ESTHeight 182.9 cm (6')09/12/2021 2:04 PM ESTBody Mass Index27.5301 2:04 PM EST Plan of Treatment Not on file Care Teams Team MemberRelationshipSpecialtyStart DateEnd Date Vivien Ye MD [address] [place] [address] PCP - General03/22/20
--- OUTSIDE RECORDS SUMMARY | 2025-07-15 11:18 | XMS_ITS | Clinical Summary ---
Author Organization [employer] tem Address [id number] [address] [place] [address] Care Team Providers Care Mortgage Loan Counselor Name Role Phone Unavailable Primary Care Provider Unavailabl e Social History Tobacco UseTypesPacks/DayYears UsedDateSmoking Tobacco: Never AssessedChildcare AnswerDate CtrfgfziGvtbrmnycEpqafvg31/12/2019EmploymentAnswerDate Recorded TeunhqznwfBosnaqb19/12/2019Sex and Gender InformationValueDate RecordedSex Assigned at BirthNot on fileLegal NgaYarc4403/30/2015 11:55 AM EDTGender Identity Not on fileSexual OrientationNot on file Plan of Treatment Health MaintenanceDue DateLast DoneCommentsDepression Famlhzcls75/27/1972Tobacco Qlauqxzan85/27/1972Adult BMI Vhtikcwcf05/27/1978DTaP,Tdap and Td Vaccines (1 - Tdap)1978Zoster (Shingles) Vaccine (1 of 2)2009Fall Risk Screening 2024Influenza Wrjnwjs82/, 05/25/2019, 06/10/2018RSV ( or age 60+ yrs) (1 - 1-dose 75+ series)20[address] [employer] [place] [id number]
--- OUTSIDE RECORDS SUMMARY | 2025-07-15 11:18 | XMS_ITS | Clinical Summary ---
Author Organization [facility] Healthcare Address [address] [place] [address] Care Team Providers Care Director [facility] Name Role Phone Linda Jansen Primary Care Provider Allergies No known active allergies Medications MedicationSigDispense QuantityRefillsLast FilledStart DateEnd DateStatus NIFEdipine CC (Adalat CC) 30 MG 24 hr tablet Take 30 mg by mouth in the morning. Take before meals. Do not crush, chew, or split.Active doxazosin (Cardura) 4 MG tablet Take 1 tablet by mouth at ylvoqap4505/25/2023ctive nebivolol (Bystolic) 5 MG tablet Take 5 [...] osteoarthritis, unspecified ankle and foot03/01/2025History of colon epzprz1805/21/2024rteriosclerotic vascular disease 02/09/2024Erectile lkzdcgciozg22/17/2024Lung gbefvi4002/09/2024History of pivqzpvwmkdkrza21/17/2024History of COVID-19002/09/2024Other thrombophilia ([facility])02/09/2024Thoracic aortic gfznrxr8102/09/20249938Xzruzfjlmpvhl08/10/2024 Primary fyzmtrhlcnjv11/12/2023Sleep apnea08/05/2023ONV (postoperative nausea and vomiting)12/03/2021 Resolved Problems ProblemNoted DateDiagnosed DateResolved UngvWtwojppecuqlme03/17/202407/03/2025 Sscklrh89/Screening for colorectal vognse90/ Rnismuknozyegu28/17/202407/03/2025Ureteral stone/OVID-19 /Mixed vxpydcprnjukep70/12/202310/trial fibrillation /2263Gjjgjirsyqaawt09/21/202306/Kidney stone04/14/2023 02/09/2024 Encounters DateTypeDepartmentCare PqeaNhcflskxrwd55/17/2025bstract [facility] [address] [place] [phone] Linda Jansen PA 5Clinisync Result Encounter NOMS External Department Unsolicited Provider, Generic External Data 5Clinisync Result Encounter NOMS External Department Unsolicited Provider, Generic External Data 06/08/2025linisync Result Encounter NOMS External Department Unsolicited Provider, Generic External Data 05/30/2025bstract [facility] [address] [place] [address] Linda Jansen, PA 05/27/2025bstract NOMS [facility] [address] [place] [address] Christian Carlos DO 5Clinisync Result Encounter NOMS External Department Unsolicited Provider, Generic External Data 5Clinisync Result Encounter NOMS External Department Unsolicited Provider, Generic External Data 05/17/2025bstract NOMS [facility] 112 [facility] [address] [place] [address] Linda Jansen, PA 5Clinisync Result Encounter NOMS External Department Unsolicited Provider, Generic External Data 5Abstract NOMS Kimberly [facility] 112 [facility] [address] [place] [address] Linda Jansen, PA 05/12/2025External Result Encounter NOMS External Department Unsolicited Christian Carlos, DO 05/12/2025External Result Encounter NOMS External Department Unsolicited Christian Carlos, DO 05/12/2025External Result Encounter NOMS External Department Unsolicited Christian Carlos, DO 05/12/2025External Result Encounter NOMS External Department Unsolicited Christian Carlos, DO 5Clinisync Result Encounter NOMS External Department Unsolicited Provider, Generic External Data from Last 3 Months Immunizations ImmunizationAdministration DatesNext DueHep B, adult01/29/2005,08/28/2004, 07/24/2004Influenza, injectable, quadrivalent, preservative free07/20/2022, 06/10/2019,06/10/2018Influenza, seasonal, shmyfdylns68/01/2019 Family History Medical HistoryRelationNameCommentsCancerMotherDiane AustinRelationNameStatus CommentsMotherDiane Rl [...] times a week08/06/2023How often do you attend christian or zoroastrian services?1 to 4 times per year08/06/2023o you belong to any clubs or organizations such as christian groups, unions, fraClickpass or athletic groups, or school groups?Yes08/06/2023How often [...] at all 08/06/2023HQ-2AnswerDate RecordedPatient Health Questionnaire-2 Score0 03/01/2025[facility] [place] [facility] Occup[facility] - Occupational Stress QuestionnaireAnswerDate RecordedDo you feel stress - tense, restless, nervous, or anxious, or unable to sleep at night because yourmind is troubled all the time - these days?Only a mjgugz2408/06/2023Exercise Vital SignAnswerDate Recorded On average, how many [...] steady place to sleep or slept in [facility] (including now)?No08/06/2023Sex and Gender InformationValueDate RecordedSex Assigned at BirthNot on fileLegal SexMale 11/06/2022 8:11 PM EDTGender IdentityNot on fileSexual OrientationNot on file Last Filed Vital Signs Vital SignReadingTime TakenCommentsBlood Jjostznw173/8407 9:26 AM EDT Ghjsa1091/08/2025 9:26 AM BYUZhwqkapcxzz82.2 ??C (98.9 ??F)11/09/2024 10:32 AM EDTRespiratory Cloj078103/01/2025 9:26 AM EDTOxygen Ognblryghh23%03/01/2025 9:26 AM EDTInhaled Oxygen Concentration--Cwmiyt95.4 kg (199 lb 6.4 oz)03/01/2025 9:26 AM JXHQrryhf362.9 cm (6')03/01/2025 9:26 AM EDTBody Mass Index27.04003/01/2025 9:26 AM EDT Plan of Treatment Health MaintenanceDue DateLast DoneCommentsCT Eyfedsztqlia95/27/1960FIT-DNA 1959FIT1959FOBT09/20/19595695Pnpslinuhronm99/27/1960COVID-19 Vaccine (#1)1964Pneumococcal Vaccine: 65+ Years (1 of 2 - PCV)1978Influenza Vaccine (#1)511/, 06/10/2019, 05/25/2019, Additional history existsMedicare Annual Wellness (AWV)607/03/2025, 4Colonoscopy , 10/02/2018Colorectal Cancer Awpmldely94/08/2029 Procedures Procedure NamePriorityDate/TimeAssociated DiagnosisCommentsHMHP ANTIBODY ID Calpicr1407/07/2025 6:40 AM EST PROTEIN ELECTRO.,ELzouunw88/13/2025 6:40 AM EST [facility] DIRECT ANTIGLOBULIN FECNXlbqwxp97/13/2025 6:40 AM EST HMHP IXINUGRSFSJLdmtnlr71/13/2025 6:40 AM EST ALL OBVRwtrpdb20/13/2025 6:40 AM EST [facility] CMP (CMP) (FOR [facility]OTE [facility] USE)Rgbylhi8507/07/2025 6:40 AM EST ALL TYPE AND HGZCXCDhcpuyv31/13/2025 6:40 AM EST ALL CBC WITH AUTO SPXYChhsznu68/13/2025 6:40 AM EST HMHP ZSZZUOQEDWQIskjzwj69/31/2025 6:40 AM EDT MHPT FDGDAHILTMDACtzxtwn76/31/2025 6:40 AM EDT ALL EUEPbgnuuv68/31/2025 6:40 AM EDT [facility] CMP (CMP) (FOR REMOTE [facility] USE)Noaikly9406/24/2025 6:40 AM EDT ALL CBC WITH AUTO EIIPZpgljeh63/31/2025 6:40 AM EDT HMHP XEMOURSOTCQLkqmhbm07/15/2025 6:45 AM EDT MHPT ZNVUPHNMXILGHhunllm28/15/2025 6:45 AM EDT ALL CBC WITH AUTO MSNDIkhvhei12/15/2025 6:45 AM EDT ALL IRFVjiaahc32/15/2025 6:45 AM EDT [facility] CMP (CMP) (FOR REMOTE [facility] USE)Handtft2106/08/2025 6:45 AM EDT HMHP IQZNSLHMMRWAxcvyzb99/02/2025 6:39 AM EDT [facility] CMP (CMP) (FOR REMOTE [facility] USE)Ixwuoug2105/26/2025 6:39 AM EDT MHPT OCKTVDRSHCHFZzrtffn58/02/2025 6:39 AM EDT ALL CBC WITH AUTO ZJQJBfloyvz27/02/2025 6:39 AM EDT MHPT RMTHPIQCSRSVSdcmxme88/25/2025 6:34 AM EDT [facility] CMP (CMP) (FOR REMOTE [facility] USE)Dwcuqsz6605/19/2025 6:34 AM EDT ALL CBC WITH AUTO ZBODKvyjpfn12/25/2025 6:34 AM EDT MHPT CBVQZRLZPUQLGdxpfcd09/22/2025 6:47 AM EDT [facility] CMP (CMP) (FOR REMOTE [facility] USE)Hjfrtjm7505/16/2025 6:47 AM EDT ALL CBC WITH AUTO ALXGVaggnvv10/22/2025 6:47 AM EDT US ABDOMEN LIMITED BWLYSI3105/12/2025 1:03 PM EDT UNSQCGUVDXOXhttuch12/18/2025 9:36 AM EDT SED RATE BY MODIFIED SYILRXMQCGLloutlx19/18/2025 9:36 AM EDT VIT. B12/FOLATE NOQIGDLMaphpsz28/18/2025 9:36 AM EDT BREHWQNMFkmdoko91/18/2025 9:36 AM EDT SCAN AND LUUTaduasm32/18/2025 9:36 AM EDT IRON AND TOTAL IRON BINDING BIIDOMWZFvuvtgq09/18/2025 9:36 AM EDT COMPREHENSIVE METABOLIC BSOBWTamezuo27/18/2025 9:36 AM EDT ALL MISCELLANEOUS EYMWYulanob39/15/2025 9:02 AM EDT HMHP OSDSRPWWGOTVwjjhis46/15/2025 9:02 AM EDT ALL TYPE AND DBFGBINpvsmed95/15/2025 9:02 AM EDT [facility] IRON AND WHCIMkpvpfe77/15/2025 9:02 AM EDT C[facility] TPTKOXNDHpmrmti16/15/2025 9:02 AM EDT MHPT EBREICGHXRIROgwhqdl91/15/2025 9:02 AM EDT [facility] CMP (CMP) (FOR REMOTE [facility] USE)Aajopsk9505/09/2025 9:02 AM EDT ALL CBC WITH AUTO QCXYGtzyjll40/15/2025 9:02 AM EDT ALL SED TAUWUwhxibg15/15/2025 9:02 AM EDT COLONOSCOPY MJTEKARXPJFjvzywc61/08/2019 2:27 PM ESTfrom Last 3 Months or Most Recently Relevant to Health Maintenance Results * (ABNORMAL) PROTEIN ELECTRO.,S (07/07/2025 6:40 AM EST)ComponentValueRef Range Test MethodAnalysis TimePerformed AtPathologist SignaturePROTEIN, TOTAL5.4(A) 6.0 - 8.5 g/dLTBHALBUMIN3.22.9 - 4.4 g/bXDTNBMSWY-5-MCOMCJUJ4.30.0 - 0.4 g/dL PKVUTKAD-6-GOTWUJYT6.50.4 - 1.0 g/dLTBHBETA GLOBULIN0.90.7 - 1.3 g/dLTBHGAMMA GLOBULIN0.50.4 - 1.8 g/dLTBHM-SPIKENot ObservedNot Observed g/dLTBHGLOBULIN, TOTAL2.22.2 - 3.9 g/dLTBHA/G RATIO1.50.7 - 1.7TBHPLEASE NOTE:Comment.[facility] Comment: Protein electrophoresis scan will follow via computer, mail, or houseman delivery. Performed at: ?? - [facility] ??[id number] Waste Hand: Chad Mccall PhD, Phone: ??[phone] Specimen (Source)Anatomical Location / LateralityCollection Method / Volume Collection TimeReceived Time07/07/2025 6:40 AM EST07/07/2025 6:42 AM EST Narrative CLINISYNC - 07/08/2025 3:08 PM EST Authorizing ProviderResult TypeResult StatusGeneric External Data ProviderLAB BLOOD ORDERABLESFinal ResultPerforming OrganizationAddressCity/State/ZIP Code Phone Number [facility] * (ABNORMAL) [facility] DIRECT ANTIGLOBULIN TEST (07/07/2025 6:40 AM EST)Component ValueRef RangeTest MethodAnalysis TimePerformed AtPathologist Signature POLYSPECIFIC AHG4+(A)TBHSpecimen (Source)Anatomical Location / Laterality Collection Method / VolumeCollection TimeReceived Time07/07/2025 6:40 AM EST 07/07/2025 6:42 AM EST Narrative CLINISYNC - 07/13/2025 2:50 PM EST [facility] , ?? Authorizing ProviderResult TypeResult StatusGeneric External Data Provider CLINISYNCFinal ResultPerforming OrganizationAddressty/State/ZIP CodePhone Number [facility] * HMHP HAPTOGLOBIN (07/07/2025 6:40 AM EST) Only the most recent of5 resultswithin the time period is included. ComponentValueRef RangeTest MethodAnalysis TimePerformed AtPathologist Signature CEEFBNUKVBN6470 - 363 mg/dLTBHComment: Performed at: ?? - [facility] [address] ??[id number] Waste Hand: Chad Mccall PhD, Phone: ??[phone] Specimen (Source)Anatomical Location / LateralityCollection Method / Volume Collection TimeReceived Time07/07/2025 6:40 AM EST07/07/2025 6:42 AM EST Narrative CLINISYNC - 07/08/2025 7:08 AM EST Authorizing ProviderResult TypeResult StatusGeneric External Data Provider CLINISYNCFinal ResultPerforming OrganizationAddressty/State/ZIP CodePhone Number [facility] * HM[facility] ANTIBODY ID (07/07/2025 6:40 AM EST)ComponentValueRef RangeTest Method Analysis TimePerformed AtPathologist SignatureTBH ANTIBODY ID PANELDT Comment: LE WARM Auto-Anti-D Auto-Anti-e Nonspecific Reactivity Antibody Identification performed by [facility] Immunohematology Reference Laboratory Specimen (Source)Anatomical Location / LateralityCollection Method / Volume Collection TimeReceived Time07/07/2025 6:40 AM EST07/07/2025 6:42 AM EST Narrative CLINISYNC - 07/13/2025 2:50 PM EST [facility] , ?? Authorizing ProviderResult TypeResult StatusGeneric External Data Provider CLINISYNCFinal ResultPerforming OrganizationAddressty/State/ZIP CodePhone Number [facility] * (ABNORMAL) [facility] CMP (CMP) (FOR REMOTE [facility] USE) (07/07/2025 6:40 AM EST) Only the most recent of7 resultswithin the time period is included. ComponentValueRef RangeTest MethodAnalysis TimePerformed AtPathologist Signature WHNGJB187833 - 145 mmol/LTBHPOTASSIUM3.93.5 - 5.1 mmol/FCAKXMMOFVKQ90246 - 107 mmol/LTBHCARBON MCRFJQQ56.5(H)21.0 - 32.0 mmol/LTBHANION GAP5.2XDRPVLABJQ0816 - 106 mg/dLTBHBLOOD UREA NVRFDKIQ50.07.0 - 18.0 mg/dLTBHCREATININE0.890.70 - 1.30 mg/dLTBHTBH EGFR-AF SURINAMESE>60>=60 mL/min/1.73m 2TBHTBH EGFR-NON AF SURINAMESE>60 >=60 mL/min/1.73m 2TBHBUN CREATININE RATIO18.7FWRMWOEGHY9.68.5 - 10.1 mg/dLTBH BILIRUBIN TOTAL1.6(H)0.2 - 1.0 mg/dLTBHASPARTATE AMINO RONXPOICVNX7994 - 37 U/L TBHALANINE ICFBKGXUPVWYYQYR6195 - 63 U/LTBHALKALINE YAQACVLNNZM4263 - 116 U/LTBH TOTAL PROTEIN5.9(L)6.4 - 8.2 g/dLTBHALBUMIN LEVEL3.3(L)3.4 - 5.0 g/dLTBHGLOBULIN 2.6g/dLTBHALBUMIN GLOBULIN RATIO1.3TBHSpecimen (Source)Anatomical Location / LateralityCollection Method / VolumeCollection TimeReceived Time07/07/2025 6:40 AM EST07/07/2025 6:42 AM EST Narrative CLINISYNC - 07/07/2025 9:37 AM EST Authorizing ProviderResult TypeResult StatusGeneric External Data Provider CLINISYNCFinal ResultPerforming OrganizationAddressCity/State/ZIP CodePhone Number ÁNGELA [facility] * ALL TYPE AND SCREEN (07/07/2025 6:40 AM EST) Only the most recent of2 resultswithin the time period is included. ComponentValueRef RangeTest MethodAnalysis TimePerformed AtPathologist Signature BLOOD TYPEO PositiveTBHANTIBODY SCREENPOSITIVETBHSpecimen (Source)Anatomical Location / LateralityCollection Method / VolumeCollection TimeReceived Time 07/07/2025 6:40 AM EST07/07/2025 6:42 AM EST Narrative CLINISYNC - 07/13/2025 2:50 PM EST [facility] , ?? Authorizing ProviderResult TypeResult StatusGeneric External Data Provider CLINISYNCFinal ResultPerforming OrganizationAddressCity/State/ZIP CodePhone Number [facility] * (ABNORMAL) ALL LDH (07/07/2025 6:40 AM EST) Only the most recent of3 resultswithin the time period is included. ComponentValueRef RangeTest MethodAnalysis TimePerformed AtPathologist Signature LACTATE CAHQZOOYOBPKR356(H)85 - 227 U/LTBHSpecimen (Source)Anatomical Location / LateralityCollection Method / VolumeCollection TimeReceived Time07/07/2025 6:40 AM EST07/07/2025 6:42 AM EST Narrative CLINISYNC - 07/07/2025 9:37 AM EST Authorizing ProviderResult TypeResult StatusGeneric External Data Provider CLINISYNCFinal ResultPerforming OrganizationAddressCity/State/ZIP CodePhone Number [facility] * (ABNORMAL) ALL CBC WITH AUTO DIFF (07/07/2025 6:40 AM EST) Only the most recent of7 resultswithin the time period is included. ComponentValueRef RangeTest MethodAnalysis TimePerformed AtPathologist Signature TBH WBC24.0(H)4.0 - 11.0 10 3/uLTBHTBH RBC3.81(L)4.70 - 6.10 10 6/uLTBHTBH HGB 12.8(L)14.0 - 18.0 g/dLTBHTBH HCT38.4(L)42.0 - 54.0 %TBHTBH SXI771.8(H)80.0 - 94.0 fLTBHTBH MCH33.625.9 - 34.0 pgTBHTBH MCHC33.329.9 - 35.2 g/dLTBHTBH RDW13.4 11.0 - 15.0 %TBHTBH MSD567064 - 450 10 3/uLTBHTBH MPV8.7(L)9.5 - 13.5 fLTBH Specimen (Source)Anatomical Location / LateralityCollection Method / Volume Collection TimeReceived Time07/07/2025 6:40 AM EST07/07/2025 6:42 AM EST Narrative ÁNGELA - 07/07/2025 7:40 AM EST Authorizing ProviderResult TypeResult StatusGeneric External Data Provider CLINISYNCFinal ResultPerforming OrganizationAddressCity/State/ZIP CodePhone Number [facility] * (ABNORMAL) MHPT DIFFERENTIAL (06/24/2025 6:40 AM EDT) Only the most recent of6 resultswithin the time period is included. ComponentValueRef RangeTest MethodAnalysis TimePerformed AtPathologist Signature SEGMENTED NEUTROPHILS % DOKUZC53.0(L)43.0 - 75.0TBHLYMPHOCYTES PERCENT MANUAL 67.0(H)20.5 - 60.0 %TBHMONOCYTES PERCENT MANUAL2.01.7 - 12.0 %TBHEOSINOPHILS PERCENT MANUAL1.00.9 - 7.0 %TBHBASOPHILS PERCENT MANUAL0.0(L)0.2 - 2.0 %TBHTBH ATYPICAL LYMPHOCYTES % MANUAL1.0%TBHSEGMENTED NEUT ABSOLUTE MANUAL6.90(H)1.4 - 6.5 10 3/uLTBHLYMPHOCYTES ABSOLUTE LROJAU94.94(H)1.20 - 3.80 10 3/uLTBHMONOCYTES ABSOLUTE MANUAL0.470.30 - 0.80 10 3/uLTBHEOSINOPHILS ABSOLUTE MANUAL0.230.00 - 0.70 10 3/uLTBHBASOPHILS ABS MANUAL0.000.00 - 0.10 10 3/uLTBHATYPICAL LYMPHOCYTES ABS MAN0.23TBHSMUDGE CELLSSEENTBHSpecimen (Source)Anatomical Location / LateralityCollection Method / VolumeCollection TimeReceived Time 06/24/2025 6:40 AM EDT1 6:43 AM EDT Narrative ÁNGELA - 06/24/2025 7:38 AM EDT Authorizing ProviderResult [...] 05/12/25 1308 Narrative 05/12/2025 1:10 PM EDT [facility] [place] ?[address] ? [place] [address] ? Ultrasound Report ? Signed ? Patient: Yuri Shine ?MR#: [id number] ?? 10 ? : 1960 ?Acct:[id number] ? Age/Sex: 64 / M ?ADM Date: 09/18/25 ? Loc: XT ?Room: ?Type: REG RCR [...] ?? Procedure Note Radiology, Radiologist, - 05/12/2025 [facility] [place] [address] [place] [address] Ultrasound Report Signed Patient: Yuri Shine SMR#: [id number] 10 : 1960Acct:[id number] Age/Sex: 64 / MADM Date: 05/12/25 Loc: Room:Type: [facility] RCR Attending Dr: Christian Carlos II DO [...] Curry M.D. 05/12/2025 1:08 PM Dictation Location: [place] [address] Tech: Caterina Aguirre Transcribed By: WADE 05/12/25 1308 Dictated By: Joey Curry DO 05/12/25 1303 Signed By: <Electronically signed by Joey Curry DO in OV> 05/12/25 1308 Authorizing ProviderResult TypeResult StatusChristian Li Breanna DOIMG US PROCEDURESFinal Result * (ABNORMAL) SCAN AND CBC (05/12/2025 9:36 AM EDT)ComponentValueRef RangeTest MethodAnalysis TimePerformed AtPathologist MzaqhroxdGDA33.7(H)4.1 - 10.5 [CFU]/mL05/12/2025 10:33 AM [facility] CtrUNCORRECTED WHITE BLOOD COUNT24.7(H)4.1 - 10.5 10*3/uL05/12/2025 10:33 AM [facility] CtrRBC2.39(L)3.90 - 5.60 10*6/uL05/12/2025 10:33 AM [facility] CtrHEMOGLOBIN8.9(L)13.0 - 17.0 g/dL05/12/2025 10:33 AM [facility] HszZLNILGCGAF51.6(L)38.8 - 50.0 %05/12/2025 10:33 AM [facility] TufTLS008.3(H)83.5 - 101 fL05/12/2025 10:33 AM [facility] GyoOKW23.3(H)27.5 - 35.2 pg05/12/2025 10:33 AM [facility] HuvJTUZ61.532.5 - 35.6 g/dL05/12/2025 10:33 AM [facility] CtrRED CELL DISTRIBUTION WIDTH, RDW16.6(H) 12.0 - 14.8 %05/12/2025 10:33 AM [facility] CtrPLATELET BKUKR105873 - 450 10*3/uL05/12/2025 10:33 AM [facility] MEAN PLATELET VOLUME, MPV7.06.6 - 10.1 fL05/12/2025 10:33 AM [facility] CtrNEUTROPHILS, %22.4. %05/12/2025 11:09 AM [facility] CtrLYMPHOCYTES, %74.6. %05/12/2025 11:09 AM [facility] CtrMONOCYTE/MACROPHAGE, %2.6. %05/12/2025 11:09 AM EDT [facility] CtrEOSINOPHILS, %0.1. %05/12/2025 11:09 AM EDT [facility] CtrBASOPHILS, %0.3. %05/12/2025 11:09 AM EDT [facility] CtrNRBC0.10 - 0.5 /100{WBC}05/12/2025 11:09 AM EDT [facility] CtrNEUTROPHILS5.51.8 - 7.7 10*3/uL05/12/2025 11:09 AM [facility] OkqCWAQLNJOZWW41.5(H)1.00 - 4.8 10*3/uL 05/12/2025 11:09 AM [facility] CtrMONOCYTES0.60.0 - 0.8 10*3/uL05/12/2025 11:09 AM [facility] CtrEOSINOPHILS0.00.0 - 0.45 10*3/uL05/12/2025 11:09 AM [facility] CtrBASOPHILS 0.10.0 - 0.2 10*3/uL05/12/2025 11:09 AM [facility] JHMUXZWNUCWYQZdxxdrcr47/18/2025 11:09 AM [facility] DSKYCQDWXPRADRjoiqk40/18/2025 11:09 AM [facility] UXHKLAUQNIDZJvfsmg63/18/2025 11:09 AM [facility] ADIJARDRCNKZVlanny50/18/2025 11:09 AM [facility] CtrTEAR DROP KFEXAFpsmhi54/18/2025 11:09 AM [facility] CtrPLATELET UXMYMLZLBcskriMrimra05/18/2025 11:09 AM [facility] PLATELET FBIGEYVXCITcntgdHioknm28/18/2025 11:09 AM [facility] CtrSpecimen (Source)Anatomical Location / LateralityCollection Method / VolumeCollection TimeReceived TimeBlood (Blood)05/12/2025 9:36 AM EDT 05/12/2025 9:36 AM EDT Narrative Authorizing ProviderResult TypeResult StatusTimmoise Carlos [facility] BLOOD ORDERABLESFinal ResultPerforming OrganizationAddressty/State/ZIP CodePhone Number [address] [address], [facility] [address] [place] [address] * VIT. B12/FOLATE PROFILE (05/12/2025 9:36 AM EDT)ComponentValueRef RangeTest MethodAnalysis TimePerformed AtPathologist SignatureVITAMIN [id number] - 914 pg/mL05/12/2025 11:18 AM [facility] GqvTOMFTW78.3>5.9 ng/mL 05/12/2025 11:17 AM [facility] CtrComment: Folate reference range: >5.9 ng/ml The WHO technical consultation on folate and vitamin b12 deficiencies has determined that folate concentrations less than 4 ng/ml are considered deficient. Specimen (Source)Anatomical Location / LateralityCollection Method / Volume Collection TimeReceived TimeOtherTopography unknown / Mznwbvn6105/12/2025 9:36 AM EDT05/12/2025 9:36 AM EDT Narrative Authorizing ProviderResult TypeResult StatusTimmoise Carlos [facility] BLOOD ORDERABLESFinal ResultPerforming OrganizationAddressty/State/ZIP CodePhone Number [address] [address], [facility] [address] [place] [address] * Iron and TIBC (05/12/2025 9:36 AM EDT)ComponentValueRef RangeTest Method Analysis TimePerformed AtPathologist AvlugnzmhVTVS29279 - 212 ug/dL05/12/2025 10:52 AM [facility] CtrTOTAL IRON BINDING TUXMFSYA979100 - 450 ug/dL05/12/2025 10:52 AM [facility] Ctr% IRON WNEBLCLHGX69.220 - 50 %05/12/2025 10:52 AM [facility] BRAIXMVCODL305998 - 362 mg/dL05/12/2025 10:52 AM [facility] CtrSpecimen (Source)Anatomical Location / LateralityCollection Method / VolumeCollection TimeReceived TimeOtherTopography unknown / Ucfutcd6205/12/2025 9:36 AM EDT05/12/2025 9:36 AM EDT Narrative Authorizing ProviderResult TypeResult StatusChristian Carlos DOLAB BLOOD ORDERABLESFinal ResultPerforming OrganizationAddressty/State/ZIP CodePhone Number [facility] [address] [address], [facility] [address] [place] [address] * Sedimentation rate, automated (05/12/2025 9:36 AM EDT)ComponentValueRef Range Test MethodAnalysis TimePerformed AtPathologist SignatureERYTHROCYTE SEDIMENTATION RATE<10 - 19005/12/2025 11:18 AM [facility] CtrSpecimen (Source)Anatomical Location / LateralityCollection Method / Volume Collection TimeReceived TimeBlood (Blood)05/12/2025 9:36 AM EDT05/12/2025 9:36 AM EDT Narrative Authorizing ProviderResult TypeResult StatusChristian Carlos [facility] BLOOD ORDERABLESFinal ResultPerforming OrganizationAddressCity/State/ZIP CodePhone Number [facility] [address] [facility] [place] [place] [address], [facility] [address] [place] [address] * (ABNORMAL) Haptoglobin (05/12/2025 9:36 AM EDT)ComponentValueRef RangeTest MethodAnalysis TimePerformed AtPathologist SignatureHAPTOGLOBIN<30(L)44 - 215 mg/dL05/12/2025 11:59 AM [facility] CtrSpecimen (Source) Anatomical Location / LateralityCollection Method / VolumeCollection Time Received TimeOtherTopography unknown / Tbufebn9705/12/2025 9:36 AM EDT05/12/2025 9:36 AM EDT Narrative Authorizing ProviderResult TypeResult StatusChristian Carlos [facility] BLOOD ORDERABLESFinal ResultPerforming OrganizationAddressty/State/ZIP CodePhone Number [facility] [address] [place] [address], [facility] [address] [place] [address] * Ferritin (05/12/2025 9:36 AM EDT)ComponentValueRef RangeTest MethodAnalysis TimePerformed AtPathologist GqfiypjepGDSTOTJN329.123.9 - 336.2 ng/mL05/12/2025 11:14 AM [facility] CtrSpecimen (Source)Anatomical Location / LateralityCollection Method / VolumeCollection TimeReceived Time OtherTopography unknown / Qupixox1205/12/2025 9:36 AM EDT05/12/2025 9:36 AM EDT Narrative Authorizing ProviderResult TypeResult StatusKeithmoise Guillermo Carlos [facility] BLOOD ORDERABLESFinal ResultPerforming OrganizationAddressCity/State/ZIP CodePhone Number [facility] [address] [place] [address], [facility] [address] [place] [address] * (ABNORMAL) Comprehensive metabolic panel (05/12/2025 9:36 AM EDT)Component ValueRef RangeTest MethodAnalysis TimePerformed AtPathologist SignatureGlucose 8870 - 100 mg/dL05/12/2025 10:52 AM [facility] CtrComment: Random Glucose Reference Range is dependent on time and content of last meal. Glucose of more than 200 mg/dL in a nonstressed, ambulatory subject supports the diagnosis of Diabetes Mellitus. ADA recommended reference range [id number] - 25 mg/dL05/12/2025 10:52 AM [facility] CtrCREATININE 0.920.70 - 1.30 mg/dL05/12/2025 10:52 AM [facility] ESTIMATED GFR>60. 10:52 AM [facility] VtbNvruye621 136 - 145 mmol/L05/12/2025 10:52 AM [facility] CtrPotassium, Bld3.63.5 - 5.1 mmol/L05/12/2025 10:52 AM [facility] Snrzdnkf46480 - 107 mmol/L05/12/2025 10:52 AM [facility] Carbon Zzmeqlj11.3(H)21.0 - 31.0 mmol/L05/12/2025 10:52 AM [facility]trAnion Gap7.36.0 - 15. 10:52 AM [facility] CtrCalcium8.78.6 - 10.3 mg/dL05/12/2025 10:52 AM [facility] CtrTOTAL PROTEIN5.8(L)6.4 - 8.9 g/dL05/12/2025 10:52 AM [facility] CtrALBUMIN LEVEL4.23.5 - 5.7 g/dL05/12/2025 10:52 AM [facility] CtrGLOBULIN1.6g/dL05/12/2025 10:52 AM [facility] CtrALBUMIN/GLOBULIN RATIO2.609 10:52 AM [facility] CtrBILIRUBIN,TOTAL3.4(H)0.3 - 1.0 mg/dL05/12/2025 10:52 AM [facility] CtrComment: Samples from patients who have taken Naproxen have shown spurious elevation in Total Bilirubin levels. ??A metabolite of Naproxen, O-desmethylnaproxen, has been shown to interfere with the Sathish-Federica method for measuring Total Bilirubin. ASPARTATE AMINO XQKWSLEPRBB4786 - 39 U/L05/12/2025 10:52 AM [facility] CtrALANINE PYNFBAUQSVSQGKDD178 - 52 U/L05/12/2025 10:52 AM [facility] CtrALKALINE DYUDSENCIMI6731 - 104 U/L05/12/2025 10:52 AM [facility] CtrCREATININE CLR CALC BUKOWSBX82.8605/12/2025 10:52 AM [facility] CtrSpecimen (Source)Anatomical Location / LateralityCollection Method / VolumeCollection TimeReceived TimeOther Topography unknown / Vxwssiz6205/12/2025 9:36 AM EDT05/12/2025 9:36 AM EDT Narrative Authorizing ProviderResult TypeResult StatusChristian Carlos DOLAB BLOOD ORDERABLESFinal ResultPerforming OrganizationAddressCity/State/ZIP CodePhone Number [facility] [address] [place] [address], [facility] [address] [place] [address] * [employer] (05/09/2025 9:02 AM EDT)ComponentValueRef RangeTest Method Analysis TimePerformed AtPathologist SignatureTBH QSIB345.065.0 - 175.0 ug/dL TBHTBH TOTAL IRON BINDING QLXXYXXY617.0250.0 - 450.0 ug/dLTBHTBH PERCENT IRON GOPKDPYOEK88.5%TBHSpecimen (Source)Anatomical Location / LateralityCollection Method / VolumeCollection TimeReceived Time05/09/2025 9:02 AM EDT05/09/2025 9:34 AM EDT [facility] - 05/09/2025 10:36 AM EDT Authorizing ProviderResult TypeResult StatusGeneric External Data Provider CLINISYNCFinal ResultPerforming OrganizationAddClarks Summit State Hospitalty/State/ZIP CodePhone Number [facility] * [facility] (05/09/2025 9:02 AM EDT)ComponentValueRef RangeTest Method Analysis TimePerformed AtPathologist OltdgzbvzISYBPDYV892.026.0 - 388.0 ng/mL TBHSpecimen (Source)Anatomical Location / LateralityCollection Method / Volume Collection TimeReceived Time05/09/2025 9:02 AM EDT05/09/2025 9:34 AM EDT [facility] - 05/09/2025 10:27 AM EDT Authorizing ProviderResult TypeResult StatusGeneric External Data Provider CLINISYNCFinal ResultPerforming OrganizationAddClarks Summit State Hospitalty/State/ZIP CodePhone Number [facility] * ALL SED RATE (05/09/2025 9:02 AM EDT)ComponentValueRef RangeTest Method Analysis TimePerformed AtPathologist SignatureTB SED RATE<1<=20 mm/hrTBH Specimen (Source)Anatomical Location / LateralityCollection Method / Volume Collection TimeReceived Time05/09/2025 9:02 AM EDT05/09/2025 9:34 AM EDT [facility] - 05/09/2025 9:56 AM EDT Authorizing ProviderResult TypeResult StatusGeneric External Data Provider CLINISYNCFinal ResultPerforming OrganizationAddP[facility]/State/ZIP CodePhone Number [facility] * ALL MISCELLANEOUS TEST (05/09/2025 9:02 AM EDT)ComponentValueRef RangeTest MethodAnalysis TimePerformed AtPathologist SignatureMISCELLANEOUS TESTCOMMENT. TBHComment: Test Ordered: [id number] Antibody Identification Antibody Id. #1 ?Comment ? [...] POSITIVE (3+) WITH ANTI-IgG Kane Titer #1 ?POWERHOUSE TENDER ?NOLAB ?? Reference Range: . Antibody Id. #2 ?POWERHOUSE TENDER ?NOLAB ?? Reference Range: . Kane Titer #2 ?POWERHOUSE TENDER ?NOLAB ?? Reference Range: . Performed at: ??CB - [facility] [address] ??[id number] Waste Hand: Chad Mccall PhD, Phone: ??[phone] Specimen (Source)Anatomical Location / LateralityCollection Method / Volume Collection TimeReceived Time05/09/2025 9:02 AM EDT05/09/2025 10:49 AM EDT Narrative [facility] - 05/10/2025 2:08 PM EDT [id number] Antibody Identification Authorizing ProviderResult TypeResult StatusGeneric External Data Provider CLINISYNCFinal ResultPerforming OrganizationAddressCity/State/ZIP CodePhone Number [facility] * COLONOSCOPY DIAGNOSTIC (10/02/2018 2:27 PM EST)Anatomical RegionLaterality ModalityRadiographic Imaging Narrative Authorizing ProviderResult TypeResult StatusUnknown Practice AIMG XR PROCEDURES Final Result from Last 3 Months or Most Recently Relevant to Health Maintenance Insurance Care Teams Team MemberRelationshipSpecialtyStart DateEnd Linda Jansen PA [address] [facility] [address] [place] [address] PCP - GeneralFamily Xalpqqjv72/13/23
--- OUTSIDE RECORDS SUMMARY | 2025-07-15 11:18 | XMS_ITS | Encounter Summary ---
Author Organization [facility] Address [address] [place] [address] Care Team Providers Care Combination Worker Name Role Phone Penny Duran MD [facility] [phone] Source Comments In the event this information is protected by the Federal Confidentiality of Alcohol and Drug AbusePatient Records regulations: The Federal rules restrict any use of the information to criminally investigate or prosecute any alcohol or drug abuse patient.[facility] Encounter Details DateTypeDepartmentCare Team (Latest Contact Info)Zqbjeopmyii05/17/2025Travel Social History Tobacco UseTypesPacks/DayYears UsedDateSmoking Tobacco: NeverSmokeless Tobacco: NeverAlcohol UseStandard Drinks/WeekCommentsNot Currently0 (1 standard drink = 0.6 oz pure alcohol)Area Deprivation IndexAnswerDate RecordedNational Score (1- 100), lower number is lower dnfa294012/25/2022State Score (1-10), lower number is lower khrb5153Data from: https://www.neighborhoodatlas.medicine.[facility].edu/. Last address used for iylie[address] [facility]12/25/2022Sex and Gender InformationValueDate RecordedSex Assigned at BirthNot on fileLegal XmzOalc09/08/2021 12:00 PM EDT Gender IdentityNot on fileSexual OrientationNot on filedocumented as of this encounter Functional Status * Are you deaf or do you have serious difficulty hearing?AnswerDate of SgkgkohtycItpwevKt05/12/2022 11:08 AM Irene Velazquez RN * Are you blind or do you have serious difficulty seeing, even when wearing glasses?AnswerDate of KzjtadwnrfPfprthKv53/12/2022 11:08 AM Irene Velazquez RN * Do you have serious difficulty walking or climbing stairs?AnswerDate of RktsdyqsjcNjzgynXt03/12/2022 11:08 AM Irene Velazquez RN * Do you have difficulty dressing or bathing?AnswerDate of AssessmentAuthorNo 12/04/2021 11:08 AM Irene Velazquez RN * Because of a physical, mental, or emotional condition, do you have difficulty doing errands alone such as visiting a doctor's office or shopping?AnswerDate of FrwjyayvpcNgvctsAr02/12/2022 11:08 AM Irene Velazquez RN documented as of this encounter Mental Status * Because of a physical, mental, or emotional condition, do you have serious difficulty concentrating, remembering, or making decisions?AnswerEntry Date XezhadXh78/12/2022 11:08 AM Irene Velazquez RN documented in this encounter Plan of Treatment DateTypeDepartmentCare Team (Latest Contact Info)Mrvsqtotoch37/24/2025 8:30 AM ESTVisit (SP) Office Hematology/Oncology [address] [place] [address] [place] [address] [place] [address] NEW CONSULT / CLL / DR XIEUDBQYOASHGM46/12/2026 8:00 AM EDTOffice Visit Cardiology [address] [place] [address] [place] [address] [place] [address] yearly follow updocumented as of this encounter Visit Diagnoses Not on filedocumented in this encounter Care Teams Team MemberRelationshipSpecialtyStart [place] [address] [place] [address] Primary Staff PhysicianCardiology03/22/22documented as of this encounter
--- OUTSIDE RECORDS SUMMARY | 2025-07-15 11:18 | XMS_ITS | Clinical Summary ---
Author Organization [facility] Address [address] [place] [address] Care Team Providers Care Milk Pickup Driver Name Role Phone Ita Tuttle MD [facility] [phone] Allergies No known active allergies Medications [...] tablet by mouth once daily. 90 tablet 5Active NIFEdipine XL (ADALAT CC) 30 mg 24 hr tablet Indications:Hypertension, unspecified typeTake 1 tablet by mouth once daily. 90 tablet 5Active Valsartan-hydroCHLOROthiazide 320-25 mg per tablet Take 1 tablet by mouth once daily. 30 tablet 5Active Active Problems ProblemNoted DateDiagnosed DatePONV (postoperative nausea and vomiting) 12/03/2021trial fibrillation, gaczcxsiwq43/03/2022enign essential HTN 2OSA (obstructive sleep apnea)09/27/2021 Encounters DateTypeDepartmentCare UearWbyqcivalgd84/17/7506Qekzcd48/15/2025Refill Cardiology [address] [place] [address] [phone] WattaIta jaimes MD Refill Bgfephm5906/08/2025Refill Cardiology [address] [place] [address] WattaIta jaimes MD Refill Fmdzosr9606/08/2025Travelfrom Last 3 Months Immunizations ImmunizationAdministration DatesNext Duehepatitis [...] RecordedNational Score (1-100), lower number is lower agzj915212/25/2022State Score (1-10), lower number is lower gyuc8293Data from: https://www.neighborhoodatlas.medicine.[facility].edu/. Last address used for sweonhcl[address]wk[address] [facility]12/25/2022Sex and Gender InformationValueDate RecordedSex Assigned at BirthNot on fileLegal SexMale 06/01/2021 12:00 PM EDTGender IdentityNot on fileSexual OrientationNot on file Last Filed Vital Signs Vital SignReadingTime TakenCommentsBlood Adjnfjzr932/8808 2:32 PM EDT Pewzf524104/04/2025 2:32 PM BOQGebkvbeinih00.9 ??C (98.5 ??F)04/05/2022 2:52 PM EDTRespiratory Wuvl249010/03/2023 1:23 PM ESTOxygen Gptrpsxojo16%01/30/2024 2:12 PM EDTInhaled Oxygen Concentration--Gffykt77.6 kg (195 lb 5.2 oz)04/04/2025 2:32 PM ITYGsrhez291.9 cm (6')04/04/2025 2:32 PM EDTBody Mass Index26.49004/04/2025 2:32 PM EDT Plan of Treatment DateTypeDepartmentCare Team (Latest Contact Info)Tynkhzmtuck28/24/2025 8:30 AM ESTVisit (SP) Office Hematology/Oncology [address] [place] [address] [place] [address] [place] [address] NEW CONSULT / CLL / DR XIEPFWUDFXRGRS93/12/2026 8:00 AM EDTOffice Visit Cardiology [address] [place] [address] [place] [address] [place] [address] yearly follow upHealth MaintenanceDue DateLast DoneCommentsAnnual PCP Team Chronic Disease Visit1977Anxiety Ecafefqwl14/27/1978Depression Screening 1977HIV Ysmbfbilf09/27/1978Hepatitis C Quwldhgwe47/27/1978DTaP,Tdap,Td Vaccine (1 - Tdap)1978CT Fzgayocxiajo19/27/2005Cologuard (FIT-DNA) 09/20/20041429Grmkhuersnn38/27/2005Colorectal Cancer Dkhxnrwzr55/27/2005Fecal Occult Blood09/20/20043209Bpnimkezolzhf44/27/2005Pneumococcal Vaccine: 50+ (1 of 1 - PCV) 2009Shingrix Vaccine (1 of 2)2009dvance Directive Discussion 5Covid-19 Vaccine (1 - 2024- season)2025Influenza Vaccine (#1) /, 06/10/2019, 05/25/2019, Additional history existsMedicare Annual Wellness Visit04/25/2025Lipid Rrerhlxyd67/, 04/01/2022 Diabetes Ymyxmgbaj05/18/39208905/12/2025, 03/18/2025, 02/10/2025, Additional history existsProstate Cancer Screening Sliwwuevem93, 12/27/2022, 2RSV Vaccine (1 - 1-dose 75+ series)2034 Procedures Procedure NamePriorityDate/TimeAssociated DiagnosisCommentsLVEF TRANSTHORACIC FGBJHblcslk60/20/2025 10:33 AM EDT UTLNYcwngcr43/20/2025 10:33 AM EDT PAF (paroxysmal atrial fibrillation) (HCC) BASIC METABOLIC VLARMJvgytak11/23/2023 3:53 PM EST Hypertension, unspecified type LIPID PANEL, MCSWDLOZdyakbh49/08/2022 7:33 AM EDT Atherosclerosis from Last 3 Months or Most Recently Relevant to Health Maintenance Results * ECHO (06/13/2025 10:33 AM EDT)Specimen (Source)Anatomical Location / LateralityCollection Method / VolumeCollection TimeReceived Time06/13/2025 10:33 AM EDT [facility] - 06/13/2025 11:45 [...] * * * Final * * * Narrative [facility] - 06/13/2025 11:45 AM EDT Echocardiography Report: Transthoracic Echo [facility] Date of service: 06/13/2025 10:33:42 AM Ordering physician: ITA TUTTLE Exam indication: Sustained atrial fibrillation Technologist: Glenroy Carrington RDMS RVT Interpreting physician: Lelia Escoto MD PATIENT: [...] OrganizationAddressCity/State/ZIP CodePhone Number [facility] [address] [place] [address] * LVEF TRANSTHORACIC ECHO (06/13/2025 10:33 AM EDT)ComponentValueRef RangeTest MethodAnalysis TimePerformed AtPathologist SignatureLV Ejection Hcnwtkgu97% [facility] INSTITUTEComment: (2D biplane) EF > 52 An LV Ejection Fraction of > 50% is normal Specimen (Source)Anatomical Location / LateralityCollection Method / Volume Collection TimeReceived Time06/13/2025 10:33 AM EDT Narrative Authorizing ProviderResult TypeResult StatusIta Tuttle MDLVEF RESULTSFinal ResultPerforming OrganizationAddressCity/State/ZIP CodePhone Number [facility] [address] [place] [address] * (ABNORMAL) LIPID PANEL BASIC (04/01/2022 7:33 AM EDT)ComponentValueRef Range Test MethodAnalysis TimePerformed AtPathologist SignatureCholesterol, Rcivr188 <200 mg/dL04/01/2022 7:01 PM [facility] LABComment: <200 mg/dL, Desirable 200-239 mg/dL, Borderline high >239 mg/dL, High Jgiqbnohgocv48<150 mg/dL04/01/2022 7:01 PM [facility] Comment: <150 mg/dL, Normal 150-199 mg/dL, Borderline high 200-499 mg/dL, High >499 mg/dL, Very high HDL Uynhigmxidw10>39 mg/dL04/01/2022 7:01 PM [facility] Comment: 40-59 mg/dL, Acceptable >59 mg/dL, High: Negative risk factor for coronary heart disease <40 mg/dL, Low: Positive risk factor for coronary heart disease Non HDL Etgnqkskifp457<130 mg/dL04/01/2022 7:01 PM [facility] LABComment: <130 mg/dL, Optimal 130-159 mg/dL, Near optimal/above optimal 160-189 mg/dL, Borderline high 190-219 mg/dL, High >219 mg/dL, Very high Secondary prevention optimal non HDL Cholesterol levels are recommended to be <100 mg/dL Fasting Ggij70dcl87/08/2022 7:01 PM [facility]TNOREYNOLDS [facility] LABVLDL Gftevpptdjr37<30 mg/dL04/01/2022 7:01 PM [facility] TC:HDL Ratio3.33<5.10004/01/2022 7:01 PM [facility] LABLDL Cholesterol, Rczchzdxbf452(H)<100 mg/dL04/01/2022 7:01 PM [facility] LABComment: <100 mg/dL, Optimal 100-129 mg/dL, Near optimal/above optimal 130-159 mg/dL, Borderline high 160-189 mg/dL, High >189 mg/dL, Very high Secondary prevention optimal LDL Cholesterol levels are recommended to be < 70 mg/dL LDL:HDL Ratio2.00<2.54004/01/2022 7:01 PM [facility]TCA[facility]ITA [facility] Comment: Reference: 1. National Cholesterol Education Program ATP III Guideline At-A-Glance Quick Desk Reference: National Heart, Lung, and Blood English. National Institutes of Health. 2001: NIH Publication No. 01-3305. 2. An International Atherosclerosis Society position paper: global recommendations for the management of dyslipidemia: executive summary, Atherosclerosis. 2014: 232(2):410-413. Specimen (Source)Anatomical Location / LateralityCollection Method / Volume Collection TimeReceived TimeBloodBLOOD SPECIMEN / UnknownVenipuncture / Unknown 04/01/2022 7:33 AM EDT04/01/2022 7:33 AM EDT Narrative Authorizing ProviderResult TypeResult StatusIta Tuttle MDLABORATORYFinal ResultPerforming OrganizationAddressCity/State/ZIP CodePhone Number [facility] [address] [address], [facility] [address] [place] [address] from Last 3 Months or Most Recently Relevant to Health Maintenance Insurance Care Teams Team MemberRelationshipSpecialtyStart [place] [address] [place] [address] Primary Staff PhysicianCardiology03/22/22
--- OUTSIDE RECORDS SUMMARY | 2025-07-15 11:24 | XMS_ITS | CCD ---
Author Organization [facility] Care Team Providers Care Timber Killer Name Role Phone Sedrick Ye Unavailable Unavailable Unavailable Unavailable Primary Care Provider UnavailIta Lockwood MD Unavailable [phone] Ita Tuttle MD Unavailable Ita Tuttle [...] DO Christian Carlos II Attending Provider Hemmer, CANVAS CUTTER-C Linda Referring Provider MD Sedrick Ye Primary Care Provider [phone] Breanna IIDO Christian Attending Provider Hemmer, CANVAS CUTTER-C Linda Referring Provider [phone] Hemmer Linda PIEDRA Primary Care Provider Hemmer Linda PIEDRA Unavailable Sedrick Ye MD Primary Care Provider Christian Carlos DO Attending Provider Hemmer CANVAS CUTTER-C, Linda Referring Provider NON STAFF Primary Care Provider UnavailLino Seo [facility] Russell CAMACHO Attending Provider Christian Carlos DO Attending Provider [phone] Hemmer CANVAS CUTTER-C, Linda Primary Care Provider [phone] Hannah Queen APRN Attending Provider Sedrick Ye MD Primary Care Provider Hemmer CANVAS CUTTER-CLinda Referring Provider LINDA JANSEN Attending Unavailable BROWN, [...] Unavailable BROWN, EULALIO A Referring Unavailable Hemmer CANVAS CUTTER-C, Linda Primary Care Provider Christian Carlos DO Attending Provider [phone] Killian LYON-Gracie Long Attending Provider Inderjit CANVAS CUTTER-C, Linda Referring Provider [phone] Hemjhonatan CANVAS CUTTER-C, Linda Primary Care Provider Inderjit CANVAS CUTTER-C, Linda Referring Provider [phone] Linda Jansen Primary Care Unavailable Christian Carlos II Admitting Unavaila ble Adamowicz II, Christian Li Attending Unavaila ble NON STAFF Primary Care Unavailable Hannah Queen Admitting Unavailable Hannah Queen Attending Unavailable Linda Jansen Primary Care Unavailable Linda Jansen Referring Unavailable Breanna IIChristian Admitting Unavaila ble Devanteicz II, Christian Li Attending Unavaila ble NON STAFF Primary Care [facility] Attending Unavailable ITA TUTTLE Referring Unavailable TONY ARMSTRONG Attending Unavaila ble TIA TUTTLE Attending Unavailable ITA TUTTLE Referring Unavailable Hemmer Linda PIEDRA Unavailable [phone] Medications Current Medications MedicationDrug Class(es)DatesSig (Normalized)Sig (Original)amoxicillin 875 mg / clavulanate 125 mg oral tablet (2 sources)Penicillin-class AntibacterialStart: 09-15-2024 End: 94-77-5782trvb 1 tablet by mouth in the morningamoxicillin-clavulanate [...] oral capsule (2 sources)Non-narcotic AntitussiveStart: 09-29-2024 End: 10-75-4194vchw 1 capsule by mouth three times daily as needed for cough benzonatate (Tessalon) 200 MG capsule Indications: Acute cough Take 1 capsule (200 mg) by mouth 3 (three) times a day as needed for cough for up to 7 days Do not crush or chew. 21 capsule 09/29/2024 10/06/2024 Activecelecoxib 200 mg oral capsule (10 sources)Nonsteroidal Anti-inflammatory DrugStart: 10-28-2024 End: 79-82-2737kwgt 1 capsule by mouth once dailycelecoxib (CeleBREX) 200 MG capsule Indications: S/P right knee arthroscopy Take 1 capsule (200 mg)by mouth Daily 30 capsule 1 10/28/2024 12/27/2024 ActiveStart: 08-13-2024 End: 45-39-2923vyhj 1 capsule by mouth in the morning [...] oral tablet (20 sources)alpha-Adrenergic BlockerStart: 05-25-2023 End: 44-57-4633hvqx 1 tablet by mouth at bedtimedoxazosin (Cardura) 4 MG tablet Take 1 tablet by mouth at bedtime 05/25/2023 ActiveStart: 01-17-2023 End: 01-66-9050wjrs 1.5 tablets by mouth once daily at bedtimedoxazosin (CARDURA) 2 mg tablet Take 1.5 tablets by mouth daily at bedtime. 135 tablet 1 2/02/2023 DiscontinuedStart: 02-86-0322mqqt 1 tablet by mouth once daily at bedtimedoxazosin (CARDURA) 2 mg tablet Take 1 tablet by mouth daily at bedtime. 90 tablet 1 12/25/2022 ActiveStart: 09-13-2022 End: 27-21-4305prqg 1 tablet by mouth once daily at bedtimedoxazosin (CARDURA) 1 mg tablet TAKE 1 TABLET BY MOUTH EVERYDAY AT BEDTIME 90 tablet 3 10/08/2022 DiscontinuedComment on above:Take 1 tablet by mouth daily at bedtime. TAKE 1 TABLET BY MOUTH EVERYDAY AT BEDTIMETake 1.5 tablets by mouth daily at bedtime.doxepin hydrochloride 10 mg oral capsule (5 sources)Tricyclic Antidepressant End: 54-93-6873achdaly (SINEquan) 10 MG capsule Take 10 mg by mouth as needed at bedtime for sleep 05/21/2024 Discontinuedfolic acid 1 mg oral tablet (2 sources)Start: 49-80-2596qexm 1 tablet by mouth once dailyhydroCHLOROthiazide 25 mg / valsartan 320 mg oral tablet (20 sources)Thiazide Diuretic, Angiotensin 2 Receptor BlockerStart: 05-13-2025 take 1 tablet by mouth once dailyStart: 05-04-2020 End: 40-86-3185fibe 1 tablet by mouth once daily in [...] mg oral tablet (20 sources)Start: 09-12-2023 End: 77-79-5116rtfx 1 tablet by mouth once dailyComment on above:Take 1 tablet by mouth once daily.24 hr NIFEdipine 30 mg extended release oral tablet (20 sources)Dihydropyridine Calcium Channel BlockerStart: 97-42-7698uyvm 1 tablet by mouth once dailyNIFEdipine XL (ADALAT CC) 30 mg 24 hr tablet Indications: Hypertension, unspecified type Take 1 tablet by mouth once daily. 90 tablet 3 01/03/2025 ActiveStart: 12-20-2021 End: 68-66-1990vmpj 1 tablet by mouth once dailyNIFEdipine XL (ADALAT CC) 30 mg 24 hr tablet Indications: Hypertension, unspecified type take one tablet by mouth daily 90 tablet 3 01/05/2024 01/01/2025 DiscontinuedStart: 51-90-5992gipo 1 tablet by mouth once dailyStart: 34-54-3384jaij 1 tablet by mouth twice daily Nifedipine [...] mL injection (DEFINITY) (20 sources)Start: 01-17-2023 End: 75-85-8906fyfhhviult lipid microspheres 1.3 mL in NaCl (PF) 0.9% 10 mL injection (DEFINITY)Start: 12-12-2021 End: 10-75-0669wjkukgklvp lipid microspheres 1.3 mL in NaCl (PF) 0.9% 10 mL injection (DEFINITY)predniSONE 20 mg oral tablet (17 sources)Start: 05-06-2025 End: 04-95-3444ubgt 4 tablets by mouth once dailyStart: 37-39-2720bubcodXPCD (Deltasone) 10 MG tablet Indications: Right knee pain, unspecified chronicity As directed orally - Take 6 tabs day 1 and 2, 5 tabs day 3 and 4, 4 tabs day 5 and 6, 3 tabs day 7 and 8, 2 tabs day 9 and 10, and 1 tab day 11 and 12. 42 tablet 09/30/2024 ActiveStart: 06-10-2024 End: 13-54-9899nnhpptTEXL (Deltasone) 20 MG tablet Indications: Strain of thoracic back region 3 tabs x 2 days, 2 tabs x 2 days, 1 1/2 tab x 2 days, 1 tab x 2 days, 1/2 tab x 2 days, then stop 16 tablet 06/10/2024 07/27/2024 Discontinued (Therapy completed)125 ml sodium chloride 9 mg/ml prefilled syringe (20 sources)Start: 12-12-2021 End: 89-92-6223vicojy chloride 0.9 % (flush) 10 mL (BD POSIFLUSH)valsartan 320 mg oral tablet (15 sources)Angiotensin 2 Receptor BlockerStart: 03-01-2025 End: 27-15-7449nrbz 1 tablet by mouth once dailyvalsartan (Diovan) 320 MG tablet Indications: Primary hypertension TAKE 1 TABLET BY MOUTH EVERY DAY90 tablet 1 03/23/2025 Active Completed/Discontinued Medications MedicationDrug Class(es)DatesSig (Normalized)Sig (Original)acetaminophen 325 mg / HYDROcodone bitartrate 5 mg oral tablet (8 sources)Opioid AgonistStart: 07-14-2020 End: 20-46-2560chlj 1 tablet by mouth every four to six hours as needed for pain Hydrocodone-Acetaminophen ([place]) 5-325 mg tablet Discontinued 1 - 2 TAB PO EVERY 4-6 HOURS as needed for Pain 22 12July 14, 2020 August 28, 2021 3:10pmapixaban 5 mg oral tablet (20 sources)Factor Xa InhibitorStart: 05-04-2020 End: 72-47-9998xrkw 1 tablet by mouth twice dailyApixaban (Eliquis) 5 mg Tablet Discontinued 5 MG PO Twice daily May 04, 2020 12:00am January 23, 2024 2:05pmComment on above:Take by mouth twice daily.Take 1 tablet by mouth twice daily.aspirin 81 mg delayed release oral tablet (20 sources)Platelet Aggregation Inhibitor, Nonsteroidal Anti-inflammatory Drug Start: 07-30-2013 End: 36-47-7586lwzy 1 tablet by mouth once dailyAspirin 81 mg Tablet,Delayed Release (Dr/Ec) Discontinued 81 MG PO Daily October 02, 2018 1:00am May 04, 2020 8:52amComment on above:Take 81 mg by mouth.betamethasone 3 mg/ml / betamethasone acetate 3 mg/ml injectable suspension (4 sources)CorticosteroidStart: 09-30-2024 End: 20-11-7493utergjkcgwgjo acetate-betamethasone sodium phosphate ([place]) injection 1.5 mgStart: 09-30-2024 End: .5 mg, Intra-articular, Once PRN Procedure, Starting on Pascale 09/30/24 at 1629, For 1 dosedoxycycline hyclate 100 mg oral tablet (8 sources)Tetracycline-class DrugStart: 07-14-2020 End: 25-41-7723kwze 1 tablet by mouth twice dailyDoxycycline Hyclate 100 mg tablet Discontinued 100 MG PO Twice daily 10 July 14, 2020 1:00am August 28, 2021 3:10pmfurosemide 40 mg oral tablet (20 sources)Loop DiureticStart: 07-06-2020 End: 67-95-4532kvka 1 tablet by mouth once daily in the morningFurosemide 40 mg tablet Discontinued 40 MG PO Every morning July 06, 2020 1:00am January 23, 2024 2:06pmStart: 05-04-2020 End: 67-18-9064dhgx 1 tablet by mouth twice dailyFurosemide 20 [...] oral capsule (5 sources)Anti-epileptic AgentStart: 09-30-2024 End: 30-85-9248wwaz 1 capsule by mouth at bedtimegabapentin (Neurontin) 300 MG capsule Indications: S/P right knee arthroscopy Take 1 capsule (300 mg) by mouth at bedtime 30 capsule 09/30/2024 12/09/2024 Discontinued (Therapy completed) hydroCHLOROthiazide 25 mg / losartan potassium 100 mg oral tablet (8 sources)Thiazide Diuretic, Angiotensin 2 Receptor BlockerStart: 10-02-2018 End: 18-33-3425ooar 1 tablet by mouth once dailyLosartan-Hydrochlorothiazide 100-25 mg tablet Discontinued 1 TAB PO Daily October 02, 2018 1:00amSept2019 8:43amiv contrast (will be provided with radiology test) (20 sources)Start: 12-12-2021 End: 73-27-6391rahlls 1 dose intravenously onceiv contrast (will be [...] 12/12/2021 03/22/2022 Discontinued (Course of therapy completed)Start: 67-00-0657qturkg 1 dose intravenously onceiv contrast (will be [...] tablet (16 sources)Nonsteroidal Anti-inflammatory DrugStart: 01-08-2024 End: 16-94-2658xpiu 1 tablet by mouth once dailyMeloxicam 15 mg tablet Discontinued 15 MG PO Daily January 23, 2024 12:00am April 23, 2024 2:59pm metoprolol tartrate 50 mg oral tablet (8 sources)beta-Adrenergic BlockerStart: 10-02-2018 End: 90-64-6256oulg 1 tablet by mouth twice dailyMetoprolol Tartrate 50 mg Tablet Discontinued 50 MG PO Twice daily October 02, 2018 1:00am May 06, 2020 1:58pmpantoprazole 40 mg delayed release oral tablet (20 sources)Proton Pump InhibitorStart: 12-04-2021 End: 17-24-9701ared 1 tablet by mouth once dailypantoprazole DR (PROTONIX) 40 mg tablet Take 1 tablet by mouth once daily. 30 tablet 0 12/04/2021 03/22/2022 Discontinued (Course of therapy completed)Comment on above:Take 1 tablet by mouth once daily.microencapsulated potassium chloride 10 meq extended release oral tablet (20 sources)Start: 12-20-2021 End: 92-91-1193jyzq 1 tablet by mouth once dailypotassium chloride ER (K-DUR, KLOR-CON) 10 mEq tablet Take 1 tablet by mouth once daily. 90 tablet 3 01/10/2022 05/10/2022 Discontinued (Clinical Decision)Start: 40-47-5535qevt 1 tablet by mouth once dailyKLOR-CON M20 20 mEq tablet TAKE 1 TABLET BY MOUTH EVERY DAY 90 tablet 3 10/26/2021 ActiveStart: 10-02-2018 End: 14-68-3050ssyt 1 tablet by mouth once daily in the morningPotassium Chloride 20 mEq Tablet Extended Release Discontinued 20 MEQ PO Every morning October 02, 2018 1:00am April 23, 2024 2:59pmComment on above:TAKE 1 TABLET BY MOUTH EVERY DAYTake 1 tablet by mouth once daily.sildenafil 100 mg oral tablet (20 sources)Phosphodiesterase 5 InhibitorStart: 08-29-2021 End: 12-73-1308Whdiiezdnq (Viagra) 100 mg Tablet Discontinued 50 MG [...] mg oral tablet (20 sources)AntiarrhythmicStart: 12-20-2021 End: 55-31-2187hwfd 1 tablet by mouth twice dailysotalol (BETAPACE) 80 mg tablet Indications: Atrial fibrillation, persistent (HCC) Take 1 tablet bymouth twice daily. 180 tablet 3 01/10/2022 05/10/2022 Discontinued (Discontinued by another Health Care Provider)Start: 05-05-2020 End: 42-14-4271ioxs 1 tablet by mouth every twelve hoursSotalol 80 mg Tablet Discontinued 80 MG PO Q12H 60 30 May 05, 2020 12:00am January 23, 2024 2: 06pmComment on above:Take 80 mg by mouth twice daily.Take 1 tablet by mouth twice daily.spironolactone 25 mg oral tablet (1 source)Aldosterone AntagonistStart: 92-80-7829fowu 1 tablet by mouth once dailySpironolactone 25 MG Oral Tablet TAKE 1 TABLET DAILY. Quantity: 90 Refills: 3 Ordered: 29-Oct-2021 Tera Davison MD Start : 29-Oct-2021 Active new start tiZANidine 4 mg oral tablet (12 sources)Central alpha-2 Adrenergic AgonistStart: 06-10-2024 End: 53-34-3351bdvi 1 tablet by mouth every eight hours [...] sources)Contact dermatitis; Translations: [Unspecified contact dermatitis, unspecified cause]59-14-4760KupvmpwgYiydzv; peripheral; and visceral artery aneurysms (20 sources)Ascending aorta dilatation; Translations: [Thoracic aortic ectasia] Onset: 11-69-2913HnxxazqEhqvonh dysrhythmias (11 sources)Palpitations; Translations: [Palpitations]EpisodicCoagulation and hemorrhagic disorders (20 sources)Thrombophilia; Translations: [Other thrombophilia]Onset: 02-09-2024 50-97-1672AobocbwSrmncbha atherosclerosis and other heart disease (1 source)Calcification of coronary artery; Translations: [Atherosclerotic heart disease of [place] coronary artery without angina pectoris]52-30-9812Pgkvuyu Crushing injury or internal injury (4 sources)Crushing injury of right foot, initial encounter; Translations: [CRUSHING INJURY RIGHT FOOT INITIAL]Onset: 03-30-4088LpkxqtlyAniuuehidv and other anemia (2 sources)Autoimmune hemolytic anemia; 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]97-19-0542JseffgdChieqwwq mellitus without complication (2 sources)Impaired fasting glycemia; Translations: [Impaired fasting glucose] 46-34-1081AmilhpeeHtihcvbe of white blood cells (20 sources)Lymphocytosis; Translations: [Lymphocytosis (symptomatic)]Onset: 026932-59-6248PxyyyuuN Codes: Struck by; against (1 source)Other cause of strike by thrown, projected or falling object, initial encounter; Translations: [OTHCAUSE STRIK THRWN/FALL OBJ INIT]Onset: 11-14-2022 EpisodicEssential hypertension (20 sources)Essential hypertension; Translations: [Unspecified essential hypertension]Onset: 266588-80-9003TfbbilkNiuetoc on above:Problem List clean-up per request of Phys. EHR CmteFracture of upper limb (6 sources)Closed fracture of phalanx of finger; Translations: [Fracture of unspecified phalanx of unspecifiedfinger, initial encounter for closed fracture] 67-35-0649NuajejrcVfwsl disorders and dislocations; trauma-related (2 sources)Tear of medial meniscus of knee; Translations: [Other tear of medial meniscus, current injury, right knee, subsequent encounter]96-03-9886Kqhmbdyj Leukemias (3 sources)Chronic lymphoid leukemia, disease; Translations: [Chronic lymphocytic leukemia of B-cell type not having achieved remission]Onset: 553368-93-8534RnjescgHuqplidqzox chest pain (8 sources)Chest pain; Translations: [Chest pain, unspecified]Episodic Osteoarthritis (13 sources)Degenerative joint disease of ankle AND/OR foot; Translations: [Primary osteoarthritis, unspecifiedankle and foot]Onset: 636835-98-4182 ChronicOther connective tissue disease (1 source)Synovitis and tenosynovitis, unspecified; Translations: [SYNOVITIS AND TENOSYNOVITIS UNS]Onset: 84-06-9882EjabhtjaAweyp connective tissue disease (4 sources)Spasm; Translations: [Other muscle spasm]18-88-3707NsyvkpfzNowcb connective tissue disease (2 sources)Pain of left hand; Translations: [Pain in left hand]09-30-2024 EpisodicOther connective tissue disease (6 sources)Pain in finger; Translations: [Pain in unspecified finger(s)] 49-64-6417WygaprfiFiklv connective tissue disease (2 sources)Cramp; Translations: [Cramp and spasm]95-82-2263VfcgpnagCxxrf injuries and conditions due to external causes (3 sources)Unspecified injury of right ankle, initial encounter; Translations: [UNSPECIFIED INJURY RT ANKLE INITIAL]Onset: 98-96-4685YhkqluwcThaih male genital disorders (20 sources)Male erectile dysfunction, unspecified; Translations: [Impotence of organic origin]Onset: 558917-14-8611OjqzxldKulrp non-traumatic joint disorders (2 sources)Pain in right knee; Translations: [Pain in joint, lower leg] 90-32-3384XqsztbspJwbyi nutritional; endocrine; and metabolic disorders (8 sources)Overweight in adulthood with body mass index of 25 or more but less than 30; Translations: [Overweight]EpisodicOther upper respiratory infections (2 sources)Acute maxillary sinusitis; Translations: [Acute maxillary sinusitis, unspecified]63-77-6315DmrfktjkPhoheusmsa and visceral atherosclerosis (20 sources)Arteriosclerotic vascular disease; Translations: [Unspecified atherosclerosis]Onset: 47-94-5667CunwjozXpdbgmnv codes; unclassified (20 sources)Sleep apnea; Translations: [Unspecified sleep apnea]Onset: 581601-71-1361BdmjnxkSltwszxa codes; unclassified (20 sources)Obstructive sleep apnea syndrome; Translations: [Obstructive sleep apnea (adult) (pediatric)]Onset: 065877-13-8717XaqxiqeFrkfdiql codes; unclassified (5 sources)Non-smoker; Translations: [Other specified conditions influencing health status]EpisodicResidual codes; unclassified (1 source)H/O: atrial fibrillation; Translations: [Other specified postprocedural states]EpisodicResidual codes; unclassified (6 sources)History of arthroscopy of knee joint; Translations: [Other specified postprocedural states]24-82-9004RjlwiazbTcjmjpo and strains (4 sources)Strain of thoracic region; Translations: [Strain of muscle and tendon of back wall of thorax, initial encounter]75-42-9960SnzkedxsBadfpsdocgd injury; contusion (5 sources)Contusion of right ankle, initial encounter; Translations: [CONTUSION RIGHT ANKLE INITIAL ENC]Onset: 51-13-3313EnsvrhfuFmozodkcvauc (2 sources)Right knee pain, unspecified ugvsradsll84-85-1584 Past or Other Problems Problem ClassificationProblemDateDocumented DateEpisodic/ChronicCalculus of urinary tract (20 sources)History of calculus of kidney; Translations: [Personal history of urinary calculi]Onset: 04-14-2023 Resolved: 274889-71-5022GxtqlejsEdbnvej dysrhythmias (20 sources)Paroxysmal atrial fibrillation; Translations: [Atrial fibrillation] Onset: 09-27-2021 Resolved: 000050-18-7226GgrnmomQhiikqn on above:Problem List clean-up per request of Phys. EHR CmteComplications of surgical procedures or medical care (20 sources)Drug therapy finding; Translations: [Unspecified adverse effect of drug or medicament, initial encounter]Onset: 02-09-2024 Resolved: 680937-21-1040XigalkinZtlfnni on above:Problem List clean-up per request of Phys. EHR CmteDisorders of lipid metabolism (20 sources)Hyperlipidemia; Translations: [Other and unspecified hyperlipidemia] Onset: 08-05-2023 Resolved: 377338-74-1614OidsepyTelqen and vomiting (20 sources)Postoperative nausea and vomiting; Translations: [Nausea with vomiting, unspecified]Onset: 948119-83-6622JyysfvpyCxljc aftercare (20 sources)Patient encounter status; Translations: [snf (current) use of anticoagulants]Onset: 02-09-2024 Resolved: 02-11-5464MgbhsanaXckjusk on above:Problem List clean-up per request of Phys. EHR CmteOther and unspecified benign neoplasm (20 sources)History of polyp of colon; Translations: [History of colon polyps] Onset: 253691-97-3321PnuvvvvjTvbla connective tissue disease (1 source)Pain in left finger(s); Translations: [Pain in left finger(s)]Onset: 62-11-8871YiezevarTgcwu diseases of kidney and ureters (20 sources)Hydronephrosis; Translations: [Unspecified hydronephrosis]Onset: 04-14-2023 Resolved: 751054-56-5454PglijlneBuabz infections; including parasitic (20 sources)Personal history of other infectious and parasitic diseases; Translations: [History of COVID-19]Onset: 569870-39-1773YpckorcbAmkfg lower respiratory disease (20 sources)Dyspnea; Translations: [Other respiratory abnormalities]Onset: 02-09-2024 Resolved: 685800-35-2572NkoigxnxTdwer lower respiratory disease (20 sources)Nodule of lung; Translations: [Solitary pulmonary nodule]Onset: 72-65-7758CytvnepqQuxe-; endo-; and myocarditis; cardiomyopathy (except that caused by tuberculosis or sexually transmitted disease) (20 sources)Cardiomyopathy; Translations: [Cardiomyopathy, unspecified]Onset: 02-09-2024 Resolved: 869259-16-9605CmbrwyiRkrqqla on above:Problem List clean-up per request of Phys. EHR CmteUnclassified (3 sources)Never smoked tobacco; Translations: [Never a smoker]Viral infection (20 sources)Disease caused by 2019-nCoV; Translations: [COVID-19]Onset: 08-05-2023 Resolved: 492854-63-7486ZjofvslmLyvwcbl on above:Problem List clean-up per request of Phys. EHR Cmte Results Test NameValueInterpretationReference RangeFacilityALL CBC WITH AUTO DIFFon 32-84-3746Relmkvyluvx distribution width (RBC) [Ratio]13.2 %11.0 - 15.0 %NOMS HealthcareHematocrit (Bld) [Volume fraction]38.4 %Low42.0 - 54.0 %[facility] HealthcareHemoglobin (Bld) [Mass/Vol]13.1 g/dLLow14.0 - 18.0 g/dLNOMS Healthcare Interpretation and review of laboratory resultsAbnormalSaint Louis University Health Science CenterH (RBC) [Entitic mass]34.3 eyBrub37.9 - 34.0 pgSaint Louis University Health Science CenterHC (RBC) [Mass/Vol]34.1 g/dL29.9 - 35.2 g/dLSaint Louis University Health Science CenterV (RBC) [Entitic vol]100.5 hSUdnv39.0 - 94.0 fLSouthPointe HospitalPlatelet mean volume (Bld) [Entitic vol]8.6 fLLow9.5 - 13.5 fLSouthPointe HospitalTBH ZYX255UjdJBNOSouthPointe HospitalTB RBC3.82LowSouthPointe Hospital TB WBC23.8HAurora Medical Center Manitowoc CountyCLINISYNCNOMS [facility] AndersonECHOon 06-13-2025 EchocardiographyEchocardiography Report: Transthoracic Echo [facility] Date of service: 06/13/2025 10:33:42 AM Ordering [...] * * * Final * * * [employer] [facility] : [id number] [facility] LDHon 51-25-4632WGQ [Catalytic activity/Vol]299 U/LHigh85 - 227 U/LNOMS HealthcareCCF CMP (CMP) (FOR REMOTE [facility] USE)on 69-51-4961Nnahwkz [Mass/Vol]3.5 g/dL3.4 - 5.0 g/dLNOME HealthcareALBUMIN GLOBULIN RATIO1.3NOME HealthcareALP [Catalytic activity/Vol]66 U/L46 - 116 U/L NOMS HealthcareALT [Catalytic activity/Vol]48 U/L16 - 63 U/LNOMS HealthcareAnion gap [Moles/Vol]11.2 mmol/LNOMS HealthcareAST [Catalytic activity/Vol]30 U/L15 - 37 U/LNOMS HealthcareBilirubin [Mass/Vol]2.0 mg/dLHigh0.2 - 1.0 mg/dLNOME HealthcareCalcium [Mass/Vol]8.4 mg/dLLow8.5 - 10.1 mg/dLNOME HealthcareChloride [Moles/Vol]102 mmol/L98 - 107 mmol/LNOMS HealthcareCO2 [Moles/Vol]33.3 mmol/L High21.0 - 32.0 mmol/LNOMS HealthcareCreatinine [Mass/Vol]0.88 mg/dL0.70 - 1.30 mg/dLNOME HealthcareGFR/1.73 sq M.predicted CKD-EPI (S/P/Bld) [Vol rate/Area]>60 >=60 mL/min/1.73m 2NOMS HealthcareGlobulin (S) [Mass/Vol]2.7 g/dLNOME Healthcare Glucose [Mass/Vol]84 mg/dL74 - 106 mg/dLNOMS HealthcarePotassium [Moles/Vol]3.5 mmol/L3.5 - 5.1 mmol/LNOMS HealthcareProtein [Mass/Vol]6.2 g/dLLow6.4 - 8.2 g/dL [facility]Pointe HospitalSodium [Moles/Vol]143 mmol/L136 - 145 mmol/LNPUSHMATAHA HOSPITAL – ANTLERS HealthcareTB EGFR-NON AF MALAGASY>60>=60 mL/min/1.73m 2NOMS HealthcareUrea nitrogen [Mass/Vol]23.0 mg/dLHigh7.0 - 18.0 mg/dLSouthPointe HospitalUrea nitrogen/Creatinine [Mass ratio]26.1 mg/mgSouthPointe HospitalNo Panel Informationon 06-08-2025 Interpretation and review of laboratory resultsAbScotland Memorial Hospital CBC WITH AUTO DIFFon 14-06-9965Ssnbppcwafj distribution width (RBC) [Ratio]14.1 %11.0 - 15.0 %[facility]Pointe HospitalHematocrit (Bld) [Volume fraction]33.5 %Low42.0 - 54.0 %SouthPointe HospitalHemoglobin (Bld) [Mass/Vol]11.3 g/dLLow14.0 - 18.0 g/dLSouthPointe HospitalInterpretation and review of laboratory resultsAbnoCoatesville Veterans Affairs Medical Center (RBC) [Entitic mass]36.3 pvTwrv27.9 - 34.0 pg [facility] (RBC) [Mass/Vol]33.7 g/dL29.9 - 35.2 g/dLSaint Louis University Health Science CenterV (RBC) [Entitic vol]107.7 sILmll82.0 - 94.0 fLHarry S. Truman Memorial Veterans' Hospitallet mean volume (Bld) [Entitic vol]8.8 fLLow9.5 - 13.5 fLCox North ZSA159ZtcZIJWCox North RBC3.11LowCox North WBC24.4HighSoutheast Missouri Community Treatment CenterINISMethodist University Hospital CBC WITH AUTO DIFFon 53-95-3159Dgoddqyutep distribution width (RBC) [Ratio]15.6 %High11.0 - 15.0 %[facility]Po[facility] HospitalHematocrit (Bld) [Volume fraction]32.1 %Low42.0 - 54.0 %NOMS HealthcareHemoglobin (Bld) [Mass/Vol]10.5 g/dLLow14.0 - 18.0 g/dLLOGAN REGION[facility] HealthcareInterpretation and review of laboratory resultsAbnormFulton County Medical Center (RBC) [Entitic mass]36.7 wuSiov26.9 - 34.0 pg [facility] (RBC) [Mass/Vol]32.7 g/dL29.9 - 35.2 g/dLSaint Louis University Health Science CenterV (RBC) [Entitic vol]112.2 iCOmfj69.0 - 94.0 fLSouthPointe HospitalPlatelet mean volume (Bld) [Entitic vol]9.1 fLLow9.5 - 13.5 fLCox North JJS907TWYXMercy Hospital South, formerly [facility] RBC2.86LowNOMercy Hospital South, formerly St[facility] WBC29.2HAtrium Health Kings Mountain HealthcareALL CBC WITH AUTO DIFFon 17-45-5202Nndbppoliip distribution width (RBC) [Ratio]16.6 %High11.0 - 15.0 %[facility]Po[facility] HospitalHematocrit (Bld) [Volume fraction]27.9 %Low42.0 - 54.0 %[facility]Po[facility] HospitalHemoglobin (Bld) [Mass/Vol]9.2 g/dLLow14.0 - 18.0 g/dLLOGAN REGIONAL [facility]OSPITAL HealthcareInterpretation and review of laboratory resultsAbnormFulton County Medical Center (RBC) [Entitic mass]37.2 yiMqdc36.9 - 34.0 pg [facility] (RBC) [Mass/Vol]33 g/dL29.9 - 35.2 g/dLSaint Louis University Health Science CenterV (RBC) [Entitic vol]113 gSXebo09.0 - 94.0 fLSouthPointe HospitalPlatelet mean volume (Bld) [Entitic vol]9.2 fLLow9.5 - 13.5 fLCox North SHO008FliORASMercy Hospital South, [facility] RBC2.47LowCox North WBC26.8HighCincinnati Shriners Hospital HealthcareAntibody Identificationon 34-52-0667Tolfdigc IdentificationWARM [facility] Emergency Physician GroupComment on above:Result Comment: Auto-Anti-D Auto-Anti-e Testing performed and reported by [facility].Blood Bank Pathologist Reviewon 18-89-6957Mktwg Bank Pathologist ReviewSent to [facility]erton Physician GroupComment on above: Result Comment: PERFORMED BY: [address] [address] PATHOLOGIST STOCK TRACER DANIELLE QUINONES M.D.[facility] BB Sendouton 82-94-1044Mcorvmpl [facility] BB SendoutSent to [facility] Physician GroupComment on above: Result Comment: Sent to [facility] for further testing. Final report to follow. PERFORMED BY: [address] [address] PATHOLOGIST STOCK TRACER DANIELLE QUINONES M.D.Complement DATon 10-71-9390Wdajyotgmj C3B,-C3D AHGPositive Critically abnormalNegativeMartin Memorial Health Systems Physician [facility] HospitalCombaraga county memorial hospital on above:Result Comment: PERFORMED BY: [address] [address] PATHOLOGIST STOCK TRACER DANIELLE QUINONES M.D.Direct Antiglobulin Teston 26-94-3792ZaZ AHGPositive Critically abnormalNegativeThe [facility] Physician GroupDirect [place] 40-70-9927Wendcgjpeasm AHGPositiveCritically abnormalNegativeThe [facility] Physician [facility] HospitalCombaraga county memorial hospital on above:Result Comment: PERFORMED BY: [address] [address] PATHOLOGIST STOCK TRACER DANIELLE QUINONES M.D.Jalil 05-13-2025L Specimen: [id number] Received: 05/16/25 Status: FRANCIS Yin Num: [id number] Spec Type: Impression Subm Dr: Christian Carlos, II, DO Tissues: PATHBBK Procedures: PATHREVIEW Age/ Patient Sex Location Account Attending Physician Darius Valera 64/M [id number] Christian Carlos II DO SPEC NUM: [id number] RECD: 05/16/25-1159 STATUS: FRANCIS YIN NUM: [id number] MELONIE: 05/13/25- SUBM DR: Christian Carlos II, DO ENTERED: 05/16/25-1200 [facility] DR: SPEC TYPE: Impression DEPT: RI ORDERED: PATHREVIEW ORDERED: [facility]REH[facility] Results Date Time Test Result Flag (u) Normal Range 05/12/25935 Ab Screen POSITIVE AB ID 05/12/25935 AUTO, Panaglutin, Warm Auto-Anti-D Auto-Anti-e Testing performed and reported by [facility]. Pathologist Review [place] reports detection of auto anti-D, auto anti-e, nonspecific reactivity, and probable warm autoantibody. Recommendation: The majority of ABO/Rh D compatible units will be incompatible with neat serum/plasma. Specimen: [id number] Received: 05/16/25 Status: FRANCIS Veronika Num: [id number] Spec Type: Impression Subm Dr: Christian Carlos II, DO Tissues: DEBORAH Procedures: PATHREVIEW Patient: Darius Valera [id number] (Continued) Signed (signature on file) Vinay Cowan JR, MD 05/25/[address] [place] [address] GroupAlanine aminotransferase [Enzymatic activity/volume] in Serum or PlasmaOrdered By: Christian Carlos on 47-80-6673SHT [Catalytic activity/Vol]23 U/LNormal7-52Par[facility] General HospitalComment on above:Performed By: #### SCAN CBC, LDH, CMP #### [facility] [address] [place] [address] USAAlbumin [Mass/volume] in Serum or Plasma by Bromocresol green (BCG) dye binding methoOrdered By: Christian Carlos on 15-21-0482Hliggrq BCG dye [Mass/Vol]4.2 g/dL3.5-5.7FWexner Medical CenterAlkaline phosphatase [Enzymatic activity/volume] in Serum or PlasmaOrdered By: Christian Carlos on 43-86-1050URI [Catalytic activity/Vol]69 U/VWxvody06-150StbzrvwalParma Community General HospitalComment on above:Performed By: #### SCAN CBC, LDH, CMP #### [place] [address] USAAnisocytosis [Presence] in Blood by Light microscopy Ordered By: Christian Carlos on 33-54-5534Hhhtkcftxsht Ql (Bld)SlightNormal [facility] HospitalComment on above:Performed By: #### SCAN CBC, LDH, CMP #### [place] [address] USAAspartate aminotransferase [Enzymatic activity/volume] in Serum or PlasmaOrdered By: Christian Carlos on 28-66-0579TLW [Catalytic activity/Vol]28 U/BZaesyx94-39QbeneztisParma Community General HospitalComment on above: Performed By: #### SCAN CBC, LDH, CMP #### [place] [address] USABasophils [#/volume] in Blood by Automated countOrdered By: Christian Carlos on 49-87-1133Rvbnjmfyw (Bld) [#/Vol]0.1 10*3/uLNormal 0.0-0.2FWexner Medical CenterComment on above:Performed By: #### SCAN CBC, LDH, CMP #### [address] [place] [address] USABasophils/100 leukocytes in Blood by Automated count Ordered By: Christian Carlos on 35-95-7598Hmoauujjw/100 WBC (Bld)0.3 %Normal. [facility] HospitalComment on above:Performed By: #### SCAN CBC, LDH, CMP #### [facility] [address] [place] [id number] USABilirubin.total [Mass/volume] in Serum or PlasmaOrdered By: Christian Carlos on 87-06-5650Zniyqwgag [Mass/Vol]3.4 mg/dLHigh0.3-1.0 [facility] HospitalComment on above:Samples from patients who have [...] By: #### SCAN CBC, LDH, CMP #### [place] [id number] USACalcium [Mass/volume] in Serum or PlasmaOrdered By: Christian Carlos on 32-90-6433Laflksc [Mass/Vol]8.7 mg/dLNormal8.6-10.3 [facility] HospitalComment on above:Performed By: #### SCAN CBC, LDH, CMP #### [address] [address] USACarbon dioxide, total [Moles/volume] in Serum or Plasma Ordered By: Christian Carlos on 02-79-8749CF9 [Moles/Vol]34.3 mmol/LHigh 21.0-31.0[facility] HospitalComment on above:Performed By: #### SCAN CBC, LDH, CMP #### [address] [address] USAChloride [Moles/volume] in Serum or PlasmaOrdered By: Christian Carlos on 90-43-3844Ylpfezzs [Moles/Vol]104 mmol/DHmhvzt45-525 [facility] HospitalComment on above:Performed By: #### SCAN CBC, LDH, CMP #### [facility] [address] [place] [address] USAComprehensive Metabolic Panelon 74-47-5856Dhmwbnz [Mass/Vol]4.2 g/dLNormal3.5-5.7The [facility] Physician [facility] HospitalComment on above: Performed By: #### SCAN CBC, LDH, CMP #### [facility] [address] [place] [address] USACreatinine Clr Calc Xlzoooca75.86NormalThe Guthrie Robert Packer HospitalComment on above:Performed By: #### SCAN CBC, LDH, CMP #### [facility] [address] [place] [address] USAGFR/1.73 sq M.predicted MDRD (S/P/Bld) [Vol rate/Area] mL/min/{1.73_m2}NormalThe Guthrie Robert Packer HospitalComment on above:Performed By: #### SCAN CBC, LDH, CMP #### [facility] [address] [place] [address] USACreatinine [Mass/volume] in Serum or PlasmaOrdered By: Christian Carlos on 96-48-3468Yskefvfyzg [Mass/Vol]0.92 mg/dLNormal0.70-1.30 [facility] HospitalComment on above:Performed By: #### SCAN CBC, LDH, CMP #### [facility] [address] [place] [address] USADacrocytes [Presence] in Blood by Light microscopyOrdered By: Christian Carlos on 27-53-3330Jzqduxvfxx LM Ql (Bld)SlightParma Community General HospitalEosinophils [#/volume] in Blood by Automated countOrdered By: Christian Carlos on 68-21-2549Wvftxpsagsj (Bld) [#/Vol]0.0 10*3/uLNormal 0.0-0.45[facility] HospitalComment on above:Performed By: #### SCAN CBC, LDH, CMP #### [facility] [address] [place] [address] USAEosinophils/100 leukocytes in Blood by Automated count Ordered By: Christian Carlos on 22-34-4198Vlzdyhduavc/100 WBC (Bld)0.1 %Normal. [facility] HospitalComment on above:Performed By: #### SCAN CBC, LDH, CMP #### [place] [address] USAErythrocyte Sedimentation Rateon 73-37-7205IUV (Bld) [Velocity]mm/hNormal0-19The [facility] Physician GroupComment on above:Result Comment: PERFORMED BY: [place] [address] PATHOLOGIST STOCK TRACER DANIELLE QUINONES M.D.Performed By: #### SCAN CBC, LDH, CMP #### [place] [address] USAErythrocyte distribution width [Ratio] by Automated count Ordered By: Christian Carlos on 48-30-8201Aioxrftytjt distribution width (RBC) [Ratio]16.6 %High12.0-14.8[facility] HospitalComment on above: Performed By: #### SCAN CBC, LDH, CMP #### [facility] [address] [place] [address] USAErythrocyte morphology finding [Identifier] in Blood Ordered By: Christian Carlos on 83-78-9150WDI morphology finding Nom (Bld)N/A [facility] HospitalErythrocyte sedimentation rate by Photometric methodOrdered By: Christian aCrlos on 85-97-0507RWE Photometric method (Bld) [Velocity]< 1 mm/hr0-19Par[facility] General HospitalErythrocytes [#/volume] in Blood by Automated countOrdered By: Christian Carlos on 62-28-7759PAP (Bld) [#/Vol]2.39 10*6/uLLow3.90-5.60[facility] HospitalComment on above:Performed By: #### SCAN CBC, LDH, CMP #### [facility] [address] [place] [address] USAFerritin [Mass/volume] in Serum or PlasmaOrdered By: Christian Carlos on 46-80-9639Iiswghaj [Mass/Vol]179.1 ng/fKSxwhiz55.9-336.2 [facility] HospitalComment on above:Performed By: #### SCAN CBC, LDH, CMP #### [facility] [address] [place] [address] USAFolate [Mass/volume] in Serum or PlasmaOrdered By: Christian Carlos on 83-75-3037Usbbtc [Mass/Vol]19.3 ng/mL>5.9[facility] HospitalComment on above:Folate reference range: >5.9 ng/mlThe WHO technical consultation on folate and vitamin n92imvwynaydvzc has determined that folate concentrations lessthan 4 ng/ml are considered deficient.Glomerular filtration rate [Volume Rate/Area] in Serum, Plasma or Blood by Creatinine Ordered By: Christian Carlos on 39-94-6639Trmoikttsg filtration rate [Volume Rate/Area] in Serum, Plasma or Blood by Creatinine> 60.0 mL/MinParma Community General HospitalGlucose [Mass/volume] in Serum or PlasmaOrdered By: Christian Carlos on 69-84-9853Usssahw [Mass/Vol]88 mg/dALrkjzx51-315IqcrsktwaParma Community General HospitalComment on above:ADA recommended reference rangeRandom Glucose [...] By: #### SCAN CBC, LDH, CMP #### [facility] [address] [place] [address] USAHaptoglobinon 99-70-1537VRBRJYTCGVHqy/dLLow44 - 215 mg/dL [facility] HealthcareInterpretation and review of laboratory resultsAbnormalNOMS HealthcareNOMS HealthcareHaptoglobin<30Eyr18-242Bcu [facility] Physician Group Comment on above:Result Comment: PERFORMED BY: [place] [address] PATHOLOGIST STOCK TRACER DANIELLE QUINONES M.D.Performed By: #### SCAN CBC, LDH, CMP #### [place] [address] USAHaptoglobin [Mass/volume] in Serum or PlasmaOrdered By: Christian Carlos on 27-53-6282Kpvdkfltmad [Mass/Vol]mg/gPVoh54-666EyosrfejmParma Community General HospitalHematocrit [Volume Fraction] of Blood by Automated count Ordered By: Christian Carlos on 24-74-8469Eosobuhbox (Bld) [Volume fraction] 26.6 %Low38.8-50.0[facility] HospitalComment on above:Performed By: #### SCAN CBC, LDH, CMP #### [place] [address] USAHemoglobin [Mass/volume] in BloodOrdered By: Christian Carlos on 01-37-8892Tisqbkqeem (Bld) [Mass/Vol]8.9 g/dLLow13.0-17.0[facility] HospitalComment on above:Performed By: #### SCAN CBC, LDH, CMP #### [place] [address] USAHypochromia LM Ql (Bld)Ordered By: Christian Carlos on 89-54-0623Fzhsolawtra Ql (Bld)SlightParma Community General HospitalIron [Mass/volume] in Serum or PlasmaOrdered By: Christian Carlos on 54-99-7755Vjju [Mass/Vol]139 ug/yHTssybw77-108LkjwioostParma Community General HospitalComment on above:Performed By: #### SCAN CBC, LDH, CMP #### [place] [address] USAIron and TIBC Profileon 05-12-2025% Iron Tmhyfuhato53.2 % Mdvgod57-60Umo [facility] Physician GroupComment on above:Performed By: #### SCAN CBC, LDH, CMP #### [facility] [address] [place] [address] USATotal Iron Binding Vazpvyow895 ug/fXRkymzj481-132Spa [facility] Physician GroupComment on above:Performed By: #### SCAN CBC, LDH, CMP #### [facility] [address] [place] [address] USALeukocytes [#/volume] corrected for nucleated erythrocytes in Blood by Automated counOrdered By: Christian Carlos on 41-22-8656LHD corrected for nucl RBC Auto (Bld) [#/Vol]24.7 10*3/uLHigh4.1-10.5FWexner Medical CenterLeukocytes [#/volume] in Blood by Automated countOrdered By: Christian Carlos on 78-77-2643OJD (Bld) [#/Vol]24.7 10*3/uLHigh4.1-10.5 [facility] HospitalComment on above:Performed By: #### SCAN CBC, LDH, CMP #### [facility] [address] [place] [address] USALymphocytes [#/volume] in Blood by Automated countOrdered By: Christian Carlos on 88-38-5663Cososkvwgcj (Bld) [#/Vol]18.5 10*3/uLHigh 1.00-4.8[facility] HospitalComment on above:Performed By: #### SCAN CBC, LDH, CMP #### [facility] [address] [place] [address] USALymphocytes/100 leukocytes in Blood by Automated count Ordered By: Christian Carlos on 23-82-8308Knbfltdwtgk/100 WBC (Bld)74.6 %Normal .[facility] HospitalComment on above:Performed By: #### SCAN CBC, LDH, CMP #### [facility] [address] [place] [address] USAMCH [Entitic mass] by Automated countOrdered By: Christian Carlos on 55-67-5581WZW (RBC) [Entitic mass]37.3 sxRsih82.5-35.2FWexner Medical CenterComment on above:Performed By: #### SCAN CBC, LDH, CMP #### [facility] [address] [place] [address] Auto (RBC) [Mass/Vol]Ordered By: Christian Carlos on 51-43-2781EQPX (RBC) [Mass/Vol]33.5 g/dL32.5-35.6FWexner Medical CenterMCV [Entitic volume] by Automated countOrdered By: Christian Carlos on 16-43-7640BZI (RBC) [Entitic vol]111.3 sYEtrq24.5-101[facility] HospitalComment on above:Performed By: #### SCAN CBC, LDH, CMP #### [place] [address] USAMicrocytes LM Ql (Bld)Ordered By: Christian Carlos on 26-43-8255Vaunyfzrby Ql (Bld)MarkedParma Community General HospitalMonocytes [#/volume] in Blood by Automated countOrdered By: Christian Carlos on 66-85-0333Tpstxzgex (Bld) [#/Vol]0.6 10*3/uLNormal0.0-0.8[facility] HospitalComment on above:Performed By: #### SCAN CBC, LDH, CMP #### [facility] [address] [place] [address] USAMonocytes/100 leukocytes in Blood by Automated count Ordered By: Christian Carlos on 51-07-8983Hnhympsym/100 WBC (Bld)2.6 %Normal. [facility] HospitalComment on above:Performed By: #### SCAN CBC, LDH, CMP #### [facility] [address] [place] [address] USANeutrophils [#/volume] in Blood by Automated countOrdered By: Christian Carlos on 37-59-8681Gjmhlbkfjjc (Bld) [#/Vol]5.5 10*3/uLNormal 1.8-7.7FWexner Medical CenterComment on above:Performed By: #### SCAN CBC, LDH, CMP #### [facility] [address] [place] [address] USANeutrophils/100 leukocytes in Blood by Automated count Ordered By: Christian Carlos on 14-57-1508Bazlzosemgf/100 WBC (Bld)22.4 %Normal .[facility] HospitalComment on above:Performed By: #### SCAN CBC, LDH, CMP #### [facility] [address] [place] [address] USANo Panel InformationOrdered By: Christian Carlos on 82-19-8855Gsahommj Creatinine Clearance (Chem87.86[facility] General HospitalNucleated erythrocytes [Presence] in Blood by Automated countOrdered By: Christian Carlos on 73-86-8754Tsegagtbg RBC Auto Ql (Bld)0.1 /100{WBC}0-0.5 [facility] HospitalPlatelet adequacy [Presence] in Blood by Light microscopyOrdered By: Christian Carlos on 89-00-5977Jnvamdcuy LM Ql (Bld)Normal [facility] Health SystemPlatelet mean volume [Entitic volume] in Blood by Automated countOrdered By: Christian Carlos on 55-25-7473Qyfsxfqp mean volume (Bld) [Entitic vol]7.0 fLNormal6.6-10.1FWexner Medical Center Comment on above:Performed By: #### SCAN CBC, LDH, CMP #### [facility] [address] [place] [address] USAPlatelet morphology finding [Identifier] in BloodOrdered By: Christian Carlos on 57-27-4003Efwusrul morphology finding Nom (Bld)Normal [facility] Health SystemPlatelets [#/volume] in Blood by Automated countOrdered By: Christian Carlos on 12-16-8366Eianeqhmn (Bld) [#/Vol]178 10*3/hZZxwcxm677-074AqztnhnpbParma Community General HospitalComment on above:Performed By: #### SCAN CBC, LDH, CMP #### [facility] [address] [place] [id number] USAPolychromasia [Presence] in Blood by Light microscopy Ordered By: Christian Carlos on 80-68-6065Dlgbkyurtzmms LM Ql (Bld)Moderate [facility] HospitalPotassium [Moles/volume] in Serum or Plasma Ordered By: Christian Carlos on 74-46-6849Clowbebrk [Moles/Vol]3.6 mmol/LNormal 3.5-5.1FWexner Medical CenterComment on above:Performed By: #### SCAN CBC, LDH, CMP #### [facility] [address] [place] [address] USAProtein [Mass/volume] in Serum or PlasmaOrdered By: Christian Carlos on 48-12-1454Bdpndlr [Mass/Vol]5.8 g/dLLow6.4-8.9[facility] HospitalComment on above:Performed By: #### SCAN CBC, LDH, CMP #### [place] [address] USAScan and CBCon 11-10-3100KxzhuqhivvzavDbiiikCkvvlbBvd [facility] Physician GroupComment on above:Performed By: #### SCAN CBC, LDH, CMP #### [place] [address] USAMean Corpuscular HGB Conc33.5 g/oAApmfsd86.5-35.6The [facility] Physician [facility] HospitalComment on above:Performed By: #### SCAN CBC, LDH, CMP #### [place] [address] USAMicrocytosisMarkedHCA Florida Starke Emergency Physician [facility] Comment on above:Performed By: #### SCAN CBC, LDH, CMP #### [facility] [address] [place] [address] USANRBC%0.1 /100{WBC}Normal0-0.5The [facility] Physician [facility] Comment on above:Performed By: #### SCAN CBC, LDH, CMP #### [place] [address] USAPlatelet EstimateNormalNormalHCA Florida Starke Emergency Physician [facility] State HospitalComment on above:Performed By: #### SCAN CBC, LDH, CMP #### [place] [address] USAPlatelet MorphologyNormalNormalHCA Florida Starke Emergency Physician GroupComment on above:Performed By: #### SCAN CBC, LDH, CMP #### [place] [address] USAPolychromasiaModerateNoCritical access hospital Physician Group Comment on above:Performed By: #### SCAN CBC, LDH, CMP #### [place] [address] USATear Drop CellsSlightHCA Florida Starke Emergency Physician Group Comment on above:Performed By: #### SCAN CBC, LDH, CMP #### [place] [address] USAWhite Blood Count24.7 [CFU]/mLHigh4.1-10.5The [facility] Physician GroupComment on above:Performed By: #### SCAN CBC, LDH, CMP #### [place] [address] USASerum globulin measurement by calculation (mass/volume) Ordered By: Christian Carlos on 48-68-2072Bgndgady (S) [Mass/Vol]1.6 g/dLNoal [facility] HospitalComment on above:Performed By: #### SCAN CBC, LDH, CMP #### [place] [address] USASerum or plasma albumin/globulin mass ratioOrdered By: Christian Carlos on 58-11-3616Qzwgwpe/Globulin [Mass ratio]2.6 {ratio}Normal [facility] HospitalComment on above:Performed By: #### SCAN CBC, LDH, CMP #### [place] [address] USASerum or plasma anion gap determinationOrdered By: Christian Carlos on 34-59-2328Oiqug gap [Moles/Vol]7.3 mmol/LNormal6.0-15.0[facility] HospitalComment on above:Performed By: #### SCAN CBC, LDH, CMP #### [place] [address] USASerum or plasma iron binding capacity measurement (mass/volume)Ordered By: Christian Carlos on 01-92-0397Wjcu binding capacity [Mass/Vol]301 ug/dH604-060ApxkhkrqdAultman Hospitalerum or plasma iron saturation measurement (mass fraction)Ordered By: Christian Carlos on 48-00-0577Uctp saturation [Mass fraction]46.2 %20-50Aultman Hospitalodium [Moles/volume] in Serum or PlasmaOrdered By: Christian Carlos on 73-47-3367Effipj [Moles/Vol]142 mmol/YTjagjo202-444WibsoykwwParma Community General HospitalComment on above:Performed By: #### SCAN CBC, LDH, CMP #### [facility] [address] [place] [address] USATransferrin [Mass/volume] in Serum or PlasmaOrdered By: Christian Carlos on 54-66-0663Zzxmxenawga [Mass/Vol]215 mg/oFOyzamt754-833 [facility] HospitalComment on above:Performed By: #### SCAN CBC, LDH, CMP #### [facility] [address] [place] [address] USAType and Screenon 48-81-6197IEI and Rh group Nom (Bld) Blood group O Rh(D) positiveNoCritical access hospital Physician GroupComment on above: Result Comment: PERFORMED BY: [place] [address] PATHOLOGIST STOCK TRACER DANIELLE QUINONES M.D.US spleenon 28-00-8699YE spleenMERCY HEALTH [facility] Main [place] [address] [place], [place] [id number] Ultrasound Report Signed Patient: Darius Valera MR#: [id number] 10 : 1960 Acct:[id number] Age/Sex: 64 / M ADM Date: 05/12/25 Loc: XT Room: Type: [facility] Attending Dr: Christian Carlos II DO Ordering [...] Curry M.D. 05/12/2025 1:08 PM Dictation Location: [place] [address] Tech: Caterinamarietta Aguirre Transcribed By: WADE 05/12/25 1308 Dictated By: Joey Curry DO 05/12/25 1303 Signed By: 05/12/25 1308[facility] Emergency Physician GroupUrea nitrogen [Mass/volume] in Serum or PlasmaOrdered By: Christian Carlos on 93-22-2660Kxho nitrogen [Mass/Vol]20 mg/dLNormal03-18[facility] HospitalComment on above: Performed By: #### SCAN CBC, LDH, CMP #### [facility] [address] [place] [address] USAVit. B12/Folate Profileon 52-77-6032Aqrlor37.3 ng/mLNormal >5.9The [facility] Physician GroupComment on above:Result Comment: Folate reference range: >5.9 ng/ml The WHO technical consultation on folate and vitamin b12 deficiencies has determined that folate concentrations less than 4 ng/ml are considered deficient. PERFORMED BY: [place] [address] PATHOLOGIST STOCK TRACER DANIELLE QUINONES M.D.Performed By: #### SCAN CBC, LDH, CMP #### [facility] [address] [place] [id number] USAVitamin B12 ser/plasOrdered By: Christian Carlos on 04-11-6462Wzmqjchfv (Vitamin B12) [Mass/Vol]492 pg/mHYuhxso271-812KbusfreymParma Community General HospitalComment on above:Performed By: #### SCAN CBC, LDH, CMP #### [facility] [address] [place] [address] USAALL SED RATEon 41-17-6795AKE SED RATE<1NINFAtrium Health Wake Forest Baptist Medical CenterCNOVon 63-38-5834KEKNJqnimf Visit (CARDAV) DARIUS VALERA ([id number]) 1960 M Date Time Provider Department 04/04/25 2:30 PM ITA TUTTLE During your visit today, we recorded the following information about you: Pulse Blood pressure Weight Height 76/minute 132/88 88.6 kg 1.829 m Ita Tuttle MD 04/04/2025 2:57 PM Signed [facility] [place] Sissy Zepeda Department of Cardiovascular Medicine SECTION [...] male here today for follow up from [place], [place]. Has h/o AF s/p ablation, HTN, DMITRY, tachycardia induced CMP, and CHF. On Eliquis, Nifedipine XL, Valsartan/HCTZ added on Doxazosin. Doxazocin increased to 2 mg but has been using only 1 mg daily. Continue to have BP spikes above 150s. Sotalol was discontinued. He followed before with a local call or contact centre manager Dr Hooks. Since last visit denies [...] Date Value 03/22/2022 0.90 (more content not included)...Normal[facility] COMPLETEon 06-61-4621Zhledu Cvoi96LKIBkvysgvxk ClinicCalculated P Hdzr13iumiwuyHnkxjdjne ClinicCalculated R Scpu5paydvqzDicdndght ClinicCalculated T Cwld27kywxnue [facility] CenterP-R Qyduybxn261 msCleveland ClinicQRS Lluztgmf35 msCleveland ClinicQT Xrmqmrte922 msCleveland ClinicQTC Calculation (Bazett)425 msCleveland ClinicVentricular Elnw82IKNFnoohlzwh ClinicNORMAL SINUS RHYTHM NORMAL ECG Confirmed by JADE DAS MD ([id number]) on 04/04/2025 5:11:38 PMHEART AND VASCULAR INSTITUTENAME : DARIUS VALERA PID : [id number] : 1960 Gender : Male Race : ORD : Procedure Date : Apr 04 2025 14:34:56 Edit Date : Apr 04 2025 17:11:41 Diagnosis: NORMAL SINUS RHYTHM NORMAL ECG Confirmed by JADE DAS MD ([id number]) on 04/04/2025 5:11:38 PM Test Reason : Location : 192 : AVCRD Overread By : JADE DAS MD Edited By : JADE DAS MD Referred By : , Acquired by : ,[facility] INSTITUTEOhio[facility], Md, Cancer CenterECG01on 04-04-2025 IXG13Slvnapbwwrb Rate : 76 BPM Atrial Rate : 76 BPM P-R Interval : 178 ms QRS Duration : 86 ms Q-T Interval : 378 ms QTC Calculation(Bazett) : 425 ms Calculated P Wheeling : 13 degrees Calculated R Whe[place] : 0 degrees Calculated T [place] : 18 degrees NORMAL SINUS RHYTHM NORMAL ECG Confirmed by JADE DAS MD ([id number]) on 04/04/2025 5:11:38 PM NAME : DARIUS VALERA PID : [id number] : 1960 Gender : Male Race : ORD : Procedure Date : Apr 04 2025 14:34:56 Edit Date : Apr 04 2025 17:11:41 Diagnosis: NORMAL SINUS RHYTHM NORMAL ECG Confirmed by JADE DAS MD ([id number]) on 04/04/2025 5:11:38 PM Test Reason : Location : 192 : AVCRD Overread By : JADE DAS MD Edited By : JADE DAS MD Referred By : , Acquired by : ,[facility] SystemHEMOGLOBIN A1con 47-46-2763ZaU7d (Bld) [Mass fraction]%Normal<5.7Quest DiagnosticsComment on above:Result Comment: [...] diagnosis of diabetes in children. According to [place] Diabetes Association (ADA) guidelines, hemoglobin A1c <7.0% represents optimal control in non- diabetic patients. Different metrics may apply to specific patient populations. Standards of Medical Care in Diabetes(ADA).Performed By: #### 5363, 60782, 58395, 496, 7600 #### [facility] [address], [address] [place] [address] Music Professor: Memo Marquis MDLIPID PANEL, [facility] 79-66-8151Dkbwjjimvop [Mass/Vol]140 mg/dLNormal<200Quest DiagnosticsComment on above:Order Comment: FASTING:YES FASTING: YESPerformed By: #### 5363, 23338, 61079, 496, 7600 #### [facility] [address], [address] [place], [place] [id number] Music Professor: Memo Marquis MDCholesterol in HDL [Mass/Vol]67 mg/dLNormal> OR = 40Quest DiagnosticsComment on above:Order Comment: FASTING:YES FASTING: YESPerformed By: #### 5363, 23950, 67265, 496, 7600 #### [facility] [address], [address] [place] [address] Music Professor: Memo Marquis MDCholesterol in LDL [Mass/Vol]60 mg/dLNormal [...] LDL-C. Hilario VALDIVIA et al. ARNULFO. 2013;310(19): 4978-2198 (http://education.MeroArte/faq/IEP173)Performed By: #### 5363, 16406, 67534, 496, 7600 #### [facility] [address], [address] [place] [address] Music Professor: Memo HANKSholesterol.total/Cholesterol in HDL [Mass ratio]2.1 {ratio}Normal<5.0Quest DiagnosticsComment on above:Order Comment: FASTING:YES FASTING: YESPerformed By: #### 5363, 38554, 52487, 496, 7600 #### [facility] [address], [address] [place] [address] Music Professor: Memo SAUCEDA HDL PLSOBGNIPDE50 mg/dL (calc)Normal<130 Quest DiagnosticsComment on above:Order Comment: FASTING:YES FASTING: YESResult Comment: For patients with diabetes plus 1 major ASCVD risk factor, treating to a non-HDL-C goal of <100 mg/dL (LDL-C of <70 mg/dL) is considered a therapeutic option.Performed By: #### 5363, 42404, 62828, 496, 7600 #### [facility] [place] [address] Music Professor: Memo Marquis MDTriglyceride [Mass/Vol]53 mg/dLNormal<150Quest DiagnosticsComment on above:Order Comment: FASTING:YES FASTING: YESPerformed By: #### 5363, 38927, 21273, 496, 7600 #### [facility] [address], [address] [place] [address] Music Professor: Memo GAMINGSA, TOTALon 16-90-5030EWY, TOTAL0.62 ng/mL Normal< OR = 4.00Quest DiagnosticsComment on above:Result Comment: The total PSA value from this assay system is standardized against the WHO standard. The test result will be approximately 20% lower when compared to the equimolar-standardized total PSA ([place]). Comparison of serial PSA results should be interpreted with this fact in mind. This test was performed using the Siemens chemiluminescent method. Values obtained from different assay methods cannot be used interchangeably. PSA levels, regardless of value, should not be interpreted as absolute evidence of the presence or absence of disease.Performed By: #### 5363, 10328, 97474, 496, 7600 #### [facility] [address], [address] [place] [address] Music Professor: Memo Marquis MDTS W/REFLEX TO FT4on 62-70-4428GMF W/REFLEX TO FT40.97 mIU/LNormal0.40-4.50Quest DiagnosticsComment on above:Performed By: #### 5363, 01673, 56963, 496, 7600 #### [facility] [address], [address] [place] [address] Music Professor: Memo Marquis MDVITAMIN D,25-OH,TOTAL,IAon 62-95-7857ZDKLURF D,25-OH,TOTAL,IA58 ng/pVNdwzrk21-379Ghraw DiagnosticsComment on above:Result Comment: Vitamin D Status 25-OH Vitamin D: Deficiency: <20 ng/mL Insufficiency: 20 - 29 ng/mL Optimal: > or = 30 ng/mL For 25-OH Vitamin D testing on patients on D2-supplementation and patients for whom quantitation of D2 and D3 fractions is required, the QuestAssureD(TM) 25-OH VIT D, (D2,D3), LC/MS/MS is recommended: order code 09054 (patients >2yrs). See Note 1 Note 1 For additional information, please refer to http://education.MeroArte/faq/NCF115 (This link is being provided for informational/ educational purposes only.)Performed By: #### 5363, 30270, 89198, 496, 7600 #### [facility] [address], [address] [place] [address] Music Professor: Memo Marquis MDPATHOLOGY REQUEST FOR LAB CORPon 02-15-2025 PATHOLOGY REQUEST FOR LAB CORPNOME HealthcareComment on above:See report. Scanned copy available in EMR.SouthPointe HospitalAlanine aminotransferase [Enzymatic activity/volume] in Serum or Plasmaon 76-35-0973RGV [Catalytic activity/Vol]31 U/LNormal7-52NOMS HealthcareComment on above:Performed By: #### SCAN CBC, LDH, CMP #### [facility] [address] [place] [address] USAAlbumin [Mass/volume] in Serum or Plasma by Bromocresol green (BCG) dye binding methoOrdered By: Christian Carlos on 02-78-0142Zdlhbls BCG dye [Mass/Vol]4.7 g/dL3.5-5.7FWexner Medical CenterAlkaline phosphatase [Enzymatic activity/volume] in Serum or Plasmaon 74-01-0927GTO [Catalytic activity/Vol]88 U/UQxkgkf32-288ROZS HealthcareComment on above: Performed By: #### SCAN CBC, LDH, CMP #### [facility] [address] [place] [address] USAAnisocytosis [Presence] in Blood by Light microscopy Ordered By: Christian Carlos on 86-06-1498Paszjhlgscjk Ql (Bld)SlightNormal [facility] HospitalComment on above:Performed By: #### SCAN CBC, LDH, CMP #### [facility] [address] [place] [address] USAAspartate aminotransferase [Enzymatic activity/volume] in Serum or Plasmaon 98-55-9997YRE [Catalytic activity/Vol]38 U/XHvzpqr72-03WPUS HealthcareComment on above:Performed By: #### SCAN CBC, LDH, CMP #### [place] [address] USABasophils Auto (Bld) [#/Vol]Ordered By: Christian Carlos on 70-41-6398Wcsiftzhs (Bld) [#/Vol]N/[facility] Basophils/100 WBC Auto (Bld)Ordered By: Christian Carlos on 02-10-2025 Basophils/100 WBC (Bld)N/[facility], AvonBilirubin.total [Mass/volume] in Serum or Plasmaon 41-27-0757Rubfvvzkw [Mass/Vol]1.9 mg/dLHigh 0.3-1.0NOMS HealthcareComment on above:Samples from [...] By: #### SCAN CBC, LDH, CMP #### [facility] [address] [place] [address] USACOAGULATION PROFILEon 78-89-5498gGJG Coag (Bld) [Time]30.1 s25.1 - 36.5 [facility] Community HospitalComment on above:A hematocrit value greater than 55% may lead to inaccurate results in coagulation testing. Patients having hematocrit values >55% require a special collection tube for coagulation studies. Please contact the laboratory at [phone] for redraw instructions. INR Coag (PPP) [Relative time]1 {INR}[facility] HealthcareComment on above:INR Therapeutic Range A) [...] PT Coag (PPP) [Time]11.1 s9.0 - 12.9 [facility] HospitalComment on above:A hematocrit value greater than 55% may lead to inaccurate results in coagulation testing. Patients having hematocrit values >55% require a special collection tube for coagulation studies. Please contact the laboratory at [phone] for redraw instructions. STAT FOR CTFIRELANDSCT guided bone marrow bx/aspiron 17-36-6606RY guided bone marrow bx/aspirMERCY [facility]FF[facility] Main [place] [address] [place] [address] CT Scan Report Signed Patient: Darius Valera MR#: [id number] 10 : 1960 Acct:[id number] Age/Sex: 64 / M ADM Date: 02/10/25 Loc: CT Room: Type: [facility] Attending Dr: Christian Carlos II DO Copies [...] local anesthesia. Utilizing CT guidance, an 11-gauge Mumumío biopsy needle was advanced into the right [...] Jr., D.OCarrie 02/10/2025 11:08 AM Dictation Location: [place] [address] Transcribed By: [facility] 02/10/25 1108 Dictated By: Garcia Vanegas Jr, DO 02/10/25 1102 Signed By: 02/10/25 1108[facility] Emergency Physician GroupCalcium [Mass/volume] in Serum or Plasmaon 66-92-5773Iskoexx [Mass/Vol]9.3 mg/dLNormal8.6-10.3[facility] Comment on above:Performed By: #### SCAN CBC, LDH, CMP #### [facility] [address] [place] [address] USACarbon dioxide, total [Moles/volume] in Serum or Plasmaon 93-29-7776KJ6 [Moles/Vol]28.6 mmol/WTollzg85.0-31.0NOMS HealthcareComment on above:Performed By: #### SCAN CBC, LDH, CMP #### [facility] [address] [place] [address] USAChloride [Moles/volume] in Serum or Plasmaon 02-10-2025 Chloride [Moles/Vol]106 mmol/LQkifli37-527SGKX HealthcareComment on above: Performed By: #### SCAN CBC, LDH, CMP #### [place] [address] USACoagulation Profileon 34-76-1404mEYF Coag (Bld) [Time]30.1 rZronvl37.1-36.5The [facility] Physician GroupComment on above:Order Comment: STAT FOR CTResult Comment: A hematocrit value greater than 55% may lead to inaccurate results in coagulation testing. Patients having hematocrit values >55% require a special collection tube for coagulation studies. Please contact the laboratory at [phone] for redraw instructions. PERFORMED BY: [place] [address] PATHOLOGIST STOCK TRACER DANIELLE QUINONES M.D.Performed By: #### SCAN CBC, LDH, CMP #### [place] [address] USAComprehensive Metabolic Panelon 70-38-1750Qmbqhzp [Mass/Vol]4.7 g/dLNormal3.5-5.7NOMS HealthcareComment on above:Performed By: #### SCAN CBC, LDH, CMP #### [place] [address] USACREATININE CLR CALC PXRPYIRC06.99NormalNOMS Healthcare Comment on above:Result Comment: PERFORMED BY: [address] [place] [address] PATHOLOGIST STOCK TRACER DANIELLE QUINONES M.D.Performed By: #### SCAN CBC, LDH, CMP #### [facility] [address] [place] [address] USAGFR/1.73 sq M.predicted MDRD (S/P/Bld) [Vol rate/Area] mL/min/{1.73_m2}NormalThe [facility] Regional Hospital Physician GroupComment on above:Performed By: #### SCAN CBC, LDH, CMP #### [facility] [address] [place] [address] USAComprehensive metabolic panelon 05-87-5380Mgikdrllzi (U) [Mass/Vol]0.86 mg/dL0.70 - 1.30 mg/dLNOMS HealthcareESTIMATED GFRNOMS Healthcare Globulin (S) [Mass/Vol]2 g/dLNOMS HealthcareInterpretation and review of laboratory resultsAbnormalNOMS HealthcareCreatinine [Mass/volume] in Serum or PlasmaOrdered By: Christian Carlos on 10-85-9567Kkuihnsedm [Mass/Vol]0.86 mg/dL Normal0.70-1.30[facility] HospitalComment on above:Performed By: #### SCAN CBC, LDH, CMP #### [place] [address] USADacrocytes [Presence] in Blood by Light microscopyOrdered By: Christian Carlos on 85-24-2303Cnzpoubbnd LM Ql (Bld)SlightParma Community General HospitalDiff and CBCon 38-51-5908Vney Corpuscular HGB Conc35.2 g/zHLoqiwz45.5-35.6The [facility] Physician GroupComment on above:Performed By: #### SCAN CBC, LDH, CMP #### [place] [address] USAOvalocytesSlightNoCritical access hospital Physician [facility] State HospitalComment on above:Performed By: #### SCAN CBC, LDH, CMP #### [place] [address] USAPlatelet EstimateNormalNormalNormAtrium Health Waxhawlands Physician GroupComment on above:Performed By: #### SCAN CBC, LDH, CMP #### [place] [address] USAPlatelet MorphologyNormalNormPhysicians Regional Medical Center - Pine Ridge Physician GroupComment on above:Result Comment: PERFORMED BY: [place] [address] PATHOLOGIST STOCK TRACER DANIELLE QUINONES M.D.Performed By: #### SCAN CBC, LDH, CMP #### [place] [address] USAPoikilocytosisSCritical access hospital Physician Group Comment on above:Performed By: #### SCAN CBC, LDH, CMP #### [place] [address] USAPolychromasiaSCritical access hospital Physician [facility] Comment on above:Performed By: #### SCAN CBC, LDH, CMP #### [place] [address] USATear Drop CellsSCritical access hospital Physician [facility] Comment on above:Performed By: #### SCAN CBC, LDH, CMP #### [place] [address] USAWhite Blood Count20.7 [CFU]/mLHigh4.1-10.5The [facility] Physician GroupComment on above:Performed By: #### SCAN CBC, LDH, CMP #### [place] [address] USAEosinophils Auto (Bld) [#/Vol]Ordered By: Christian Carlos on 48-76-4271Nztsnehpklt (Bld) [#/Vol]N/[facility]onEosinophils/100 WBC Auto (Bld)Ordered By: Christian Carlos on 02-10-2025 Eosinophils/100 WBC (Bld)N/[facility] AvonEosinophils/100 leukocytes in Blood by Manual countOrdered By: Christian Carlos on 02-10-2025 Eosinophils/100 WBC (Bld)1 %Normal1-3FWexner Medical CenterComment on above:Performed By: #### SCAN CBC, LDH, CMP #### [facility] [address] [place] [address] USAErythrocyte distribution width [Ratio] by Automated count Ordered By: Christian Carlos on 96-16-6824Qswxgloweti distribution width (RBC) [Ratio]13.4 %Smmhcr49.0-14.8[facility] HospitalComment on above: Performed By: #### SCAN CBC, LDH, CMP #### [facility] [address] [place] [address] USAErythrocyte morphology finding [Identifier] in Blood Ordered By: Christian Carlos on 01-16-7757INK morphology finding Nom (Bld)N/A [facility] General HospitalErythrocytes [#/volume] in Blood by Automated countOrdered By: Christian Carlos on 48-58-8904OUB (Bld) [#/Vol]3.98 10*6/uL Normal3.90-5.60[facility] HospitalComment on above:Performed By: #### SCAN CBC, LDH, CMP #### [facility] [address] [place] [address] USAFree K+L LT Chains, Qn, Son 29-26-8996Mcxy [place] Light Chains, S16.3 mg/LNormal3.3-19.4The [facility] Physician GroupComment on above: Performed By: #### SPE, KAPPA, JIGAR SERUM #### [facility] ,Free Lambda Light Chains, S10.6 mg/LNormal5.7-26.3The [facility] Comment on above:Performed By: #### SPE, KAPPA, JIGAR SERUM #### [facility] ,[place]/Lambda Ratio, S1.73Lpvsom5.26-1.65The [facility] Hospital Physician GroupComment on above:Result Comment: Performed at: - [facility] [id number] Architectural Representative: Chad Mccall PhD, Phone: [phone] PERFORMED BY: [place] [address] PATHOLOGIST STOCK TRACER DANIELLE QUINONES M.D.Performed By: #### JEREMY DAVILA IFE SERUM #### [facility] ,Glucose [Mass/volume] in Serum or Plasmaon 17-00-5200Ffsrvft [Mass/Vol]106 mg/vEExos49-206PQNG HealthcareComment on above:Random Glucose Reference Range is [...] By: #### SCAN CBC, LDH, CMP #### [facility] [address] [place] [id number] USAHematocrit [Volume Fraction] of Blood by Automated count Ordered By: Christian Carlos on 25-25-6130Qqacohpxea (Bld) [Volume fraction] 38.6 %Low38.8-50.0[facility] HospitalComment on above:Performed By: #### SCAN CBC, LDH, CMP #### [facility] [address] [place] [address] USAHemoglobin [Mass/volume] in BloodOrdered By: Christian Carlos on 36-04-8645Mqfxdrbbrx (Bld) [Mass/Vol]13.6 g/uHTtjmta19.0-17.0 [facility] HospitalComment on above:Performed By: #### SCAN CBC, LDH, CMP #### [place] [id number] USAINR in Platelet poor plasma by Coagulation assayOrdered By: Christian Carlos on 80-54-5782XMX Coag (PPP) [Relative time]1.0 {INR}Normal [facility] [...] By: #### SCAN CBC, LDH, CMP #### [facility] [address] [place] [address] USAImmunofixation,Serumon 00-79-5256Ulzvjnmhcwiacx, Serum CommentNormal.The [facility] Physician GroupComment on above:Result Comment: No monoclonality detected.Performed By: #### SPE, KAPPA, JIGAR SERUM #### [facility] ,Immunoglobulin A, Mhnoq591 mg/pLJibtzk84-946Jer [facility] Comment on above:Performed By: #### SPE, KAPPA, JIGAR SERUM #### [facility] ,Immunoglobulin G714 mg/zQAsukjf625-3601Xzc [facility] Physician GroupComment on above:Performed By: #### SPE, KAPPA, JIGAR SERUM #### [facility] ,Immunoglobulin M, Serum24 mg/mMRdxvdf80-615Egq [facility] Physician GroupComment on above:Result Comment: Result confirmed on concentration. Performed at: [employer] [id number] Architectural Representative: Chad Mccall PhD, Phone: [phone] By: #### SPE, KAPPA, JIGAR SERUM #### [facility] ,Leukocytes [#/volume] corrected for nucleated erythrocytes in Blood by Automated counOrdered By: Christian Carlos on 06-90-5759LVL corrected for nucl RBC Auto (Bld) [#/Vol]20.7 10*3/uLHigh4.1-10.5FWexner Medical Center Leukocytes [#/volume] in Blood by Automated countOrdered By: Christian Carlos on 06-08-0624LUW (Bld) [#/Vol]20.7 10*3/uLHigh4.1-10.5FWexner Medical CenterComment on above:Performed By: #### SCAN CBC, LDH, CMP #### [facility] [address] [place] [address] USALymphocytes Auto (Bld) [#/Vol]Ordered By: Christian Carlos on 10-99-2129Doqzpqcesxs (Bld) [#/Vol]N/[facility], AvonLymphocytes/100 WBC Auto (Bld)Ordered By: Christian Carlos on 02-10-2025 Lymphocytes/100 WBC (Bld)N/[facility], AvonLymphocytes/100 leukocytes in Blood by Manual countOrdered By: Christian Carlos on 02-10-2025 Lymphocytes/100 WBC (Bld)69 %Zwuz27-34WektkeocuParma Community General HospitalComment on above:Performed By: #### SCAN CBC, LDH, CMP #### [facility] [address] [place] [address] [facility] [Entitic mass] by Automated countOrdered By: Christian Carlos on 51-50-8185BPC (RBC) [Entitic mass]34.2 rqYburfe58.5-35.2FWexner Medical CenterComment on above:Performed By: #### SCAN CBC, LDH, CMP #### [facility] [address] [place] [address] [facility] Auto (RBC) [Mass/Vol]Ordered By: Christian Carlos on 33-56-5856OVGI (RBC) [Mass/Vol]35.2 g/dL32.5-35.6FWexner Medical CenterMCV [Entitic volume] by Automated countOrdered By: Christian Carlos on 85-37-5540QLC (RBC) [Entitic vol]97.2 qPNaglsq85.5-101[facility] HospitalComment on above:Performed By: #### SCAN CBC, LDH, CMP #### [facility] [address] [place] [id number] USAMonocytes Auto (Bld) [#/Vol]Ordered By: Christian Carlos on 21-04-6887Gqytzzobu (Bld) [#/Vol]N/[facility] Monocytes/100 WBC Auto (Bld)Ordered By: Christian Carlos on 02-10-2025 Monocytes/100 WBC (Bld)N/[facility] AvonMonocytes/100 leukocytes in Blood by Manual countOrdered By: Christian Carlos on 02-10-2025 Monocytes/100 WBC (Bld)5 %Normal2-11[facility] HospitalComment on above:Performed By: #### SCAN CBC, LDH, CMP #### [facility] [address] [place] [address] USANeutrophils Auto (Bld) [#/Vol]Ordered By: Christian Carlos on 26-26-7321Emihucfkeus (Bld) [#/Vol]N/[facility], AvonNeutrophils/100 WBC Auto (Bld)Ordered By: Christian Carlos on 02-10-2025 Neutrophils/100 WBC (Bld)N/[facility], AvonNo Panel InformationOrdered By: Christian Carlos on 72-64-9917Zcxmlmsgrabhx Pathology TestSee commentParma Community General HospitalComment on above:See report. Scanned copy available in EMR.Estimated GFR (CKD-EPI)> 60.0 mL/MinParma Community General HospitalPharmacy Creatinine Clearance (Chem93.99[facility] HospitalProtein Electrophoresis M-SpikeNot observed g/dLNot ObservedParma Community General HospitalProtein Electrophoresis NoteComment. [facility] HospitalComment on above:Protein electrophoresis scan will follow via computer,mail, or group sales coordinator delivery.No Panel Informationon 19-87-4604APAP HealthcareNucleated erythrocytes [Presence] in Blood by Automated countOrdered By: Christian Carlos on 79-82-6615Dfaisihsm RBC Auto Ql (Bld)N/A [facility] HospitalOvalocytes [Presence] in Blood by Light microscopyOrdered By: Christian Carlos on 48-22-4625Ncghzbpjbq LM Ql (Bld) SlightParma Community General HospitalPathology Request for Lab Corpon 80-95-8780Rdzrjbkmz Request for Lab CorpHCA Florida Starke Emergency Physician Group Comment on above:Result Comment: See report. Scanned copy available in EMR. PERFORMED BY: [place] [address] PATHOLOGIST STOCK TRACER DANIELLE QUNIONES M.D.Performed By: #### SCAN CBC, LDH, CMP #### [facility] [address] [place] [address] USAPlatelet adequacy [Presence] in Blood by Light microscopy Ordered By: Christian Carlos on 76-27-1699Ypduxspym LM Ql (Bld)NormalNormal [facility] HospitalPlatelet mean volume [Entitic volume] in Blood by Automated countOrdered By: Christian Carlos on 13-90-4691Lmrazkhu mean volume (Bld) [Entitic vol]7.4 fLNormal6.6-10.1FWexner Medical Center Comment on above:Result Comment: PERFORMED BY: [place] [address] PATHOLOGIST STOCK TRACER DANIELLE QUINONES M.D.Performed By: #### SCAN CBC, LDH, CMP #### [facility] [address] [place] [address] USAPlatelet morphology finding [Identifier] in BloodOrdered By: Christian Carlos on 71-87-1073Uocsbqqf morphology finding Nom (Bld)Normal [facility] Health SystemPlatelets [#/volume] in Blood by Automated countOrdered By: Christian Carlos on 93-48-5604Ezaqjlaju (Bld) [#/Vol]158 10*3/hNVpkfgk454-768XkgjtcociParma Community General HospitalComment on above:Performed By: #### SCAN CBC, LDH, CMP #### [facility] [address] [place] [address] USAPoikilocytosis [Presence] in Blood by Light microscopy Ordered By: Christian Carlos on 77-88-5918Ghlymqymqtbejv LM Ql (Bld)Slight [facility] HospitalPolychromasia [Presence] in Blood by Light microscopyOrdered By: Christian Carlos on 49-02-8841Xbvldgtslwnsp LM Ql (Bld) SlightParma Community General HospitalPotassium [Moles/volume] in Serum or Plasmaon 55-08-8798Jlcvwzdab [Moles/Vol]3.8 mmol/LNormal3.5-5.1[facility] Comment on above:Performed By: #### SCAN CBC, LDH, CMP #### [facility] [address] [id number] USAProtein Electrophoresis, Serumon 02-10-2025 Fuops-5-Ucthmnvi6.3 g/dLNormal0.0-0.4The [facility] Physician GroupComment on above:Performed By: #### SPE, KAPPA, JIGAR SERUM #### [facility] ,Ssvpl-7-Bickckaa3.5 g/dLNormal0.4-1.0The [facility] Physician GroupComment on above:Performed By: #### SPE, KAPPA, JIGAR SERUM #### [facility] ,Beta Globulin0.9 g/dLNormal0.7-1.3The [facility] Physician GroupComment on above:Performed By: #### SPE, KAPPA, JIGAR SERUM #### [facility] ,Gamma Globulin0.7 g/dLNormal0.4-1.8[facility] Physician GroupComment on above:Performed By: #### SPE, KAPPA, JIGAR SERUM #### [facility] ,M-SpikeNot ObservedNormalNot ObservedThe [facility] Physician GroupComment on above:Performed By: #### SPE, KAPPA, JIGAR SERUM #### [facility] ,SPE-NoteCommentNormal.The [facility] Physician GroupComment on above:Result Comment: Protein electrophoresis scan will follow via computer, mail, or group sales coordinator delivery.Performed By: #### SPE, KAPPA, JIGAR SERUM #### [facility] ,Protein [Mass/volume] in Serum or Plasmaon 92-43-8079Vvohcar [Mass/Vol]6.7 g/dL Normal6.4-8.9[facility]Po[facility] HospitalComment on above:Performed By: #### SCAN CBC, LDH, CMP #### [facility] [address] [id number] USAProthrombin time (PT)Ordered By: Christian Carlos on 96-11-4425PJ Coag (PPP) [Time]11.1 sNormal9.0-12.9[facility] HospitalComment on above:A hematocrit value greater than 55% may lead to inaccurate results in coagulation testing. Patientshaving hematocrit values >55% require a special collection tube for coagulation studies. Please contact the laboratory at [phone] for redraw instructions.Order Comment: STAT FOR CT Result Comment: A hematocrit value greater than 55% may lead to inaccurate results in coagulation testing. Patients having hematocrit values >55% require a special collection tube for coagulation studies. Please contact the laboratory at [phone] for redraw instructions.Performed By: #### SCAN CBC, LDH, CMP #### [facility] [address] [place] [address] USASegmented neutrophils/100 leukocytes in Blood by Manual countOrdered By: Christian Carlos on 82-12-3345Tpbfljztb neutrophils/100 WBC (Bld)25 %Fmf69-33QspaxhqwuParma Community General HospitalComment on above:Performed By: #### SCAN CBC, LDH, CMP #### [facility] [address] [place] [address] USASerum free kappa light chain measurementOrdered By: Christian Carlos on 60-66-5893Ltfzsfoiwshkgh light chains.kappa.free (S) [Mass/Vol]16.3 mg/L3.3-19.4FVeterans Health Administrationerum globulin measurement (mass/volume)Ordered By: Christian Carlos on 66-68-8098Icxflfjd (S) [Mass/Vol]2.3 g/dLNormal2.2-3.9[facility] HospitalComment on above:Performed By: #### SPE, KAPPA, JIGAR SERUM #### [facility] ,Serum globulin measurement by calculation (mass/volume)Ordered By: Christian Carlos on 05-43-0231Igztqovs (S) [Mass/Vol]2.0 g/dLNoalParma Community General HospitalComment on above:Performed By: #### SCAN CBC, LDH, CMP #### [facility] [address] [place] [address] USASerum immunoglobulin free kappa light chains/immunoglobulin free lambda light chainsOrdered By: Christian Carlos on 26-30-8473Cezcrjeeiyydnx light chains.kappa.free/Immunoglobulin light chains.lambda.free (S) [Mass ratio]1.540.26-1.65[facility] HospitalComment on above:Performed at: [employer] [place], [place] [id number] Director: Chad Mccall PhD, Phone: [phone] or plasma IgA measurement (mass/volume)Ordered By: Christian Carlos on 21-67-5440VhJ [Mass/Vol]146 mg/uB00-137CenykncirAultman Hospitalerum or plasma IgG measurement (mass/volume)Ordered By: Christian Carlos on 02-10-2025 IgG [Mass/Vol]714 mg/aK451-7549SucpjncifAultman Hospitalerum or plasma IgM measurement (mass/volume)Ordered By: Christian Carlos on 39-30-4335QrR [Mass/Vol]24 mg/lK32-273EmrkqjhgfParma Community General HospitalComment on above:Result confirmed on concentration.Performed at: [employer] [place], [place] [id number] Director: Chad Mccall PhD, Phone: [phone] or plasma albumin measurement (mass/volume)Ordered By: Christian Carlos on 95-39-4581Ydnssqs [Mass/Vol]4.0 g/dLNormal2.9-4.4FWexner Medical CenterComment on above:Performed By: #### SPE, KAPPA, JIGAR SERUM #### [facility] ,Serum or plasma albumin/globulin mass ratioon 04-63-6238Mycwprf/Globulin [Mass ratio]2.4 {ratio}NormalNOME HealthcareComment on above:Performed By: #### SCAN CBC, LDH, CMP #### [facility] [address] [id number] USASerum or plasma albumin/globulin mass ratioOrdered By: Christian Carlos on 84-36-8124Cyhbjip/Globulin [Mass ratio]1.7 {ratio}Normal 0.7-1.7FWexner Medical CenterComment on above:Performed By: #### SPE, KAPPA, JIGAR SERUM #### [facility] ,Serum or plasma alpha 1 globulin measurement by electrophoresis (mass/volume) Ordered By: Christian Carlos on 72-82-0772Nujck 1 globulin Elph [Mass/Vol]0.3 g/dL0.0-0.4FVeterans Health Administrationerum or plasma alpha 2 globulin measurement by electrophoresis (mass/volume)Ordered By: Christian Carlos on 06-93-6036Jslef 2 globulin Elph [Mass/Vol]0.5 g/dL0.4-1.0Aultman Hospitalerum or plasma anion gap determinationon 56-55-9467Gjbdj gap [Moles/Vol]9.2 mmol/LNormal6.0-15.0[facility] HealthcareComment on above:Performed By: #### SCAN CBC, LDH, CMP #### [facility] [address] [id number] USASerum or plasma beta globulin measurement by electrophoresis (mass/volume)Ordered By: Christian Carlos on 16-92-4430Wwtm globulin Elph [Mass/Vol]0.9 g/dL0.7-1.3FVeterans Health Administrationerum or plasma gamma globulin measurement by electrophoresis (mass/volume)Ordered By: Christian Carlos on 97-38-7054Ehaxp globulin Elph [Mass/Vol]0.7 g/dL0.4-1.8 Aultman Hospitalerum or plasma immunoglobulin free lambda light chains measurement (mass/volume)Ordered By: Christian Carlos on 30-56-1835Vojvvnuwlfrxyw light chains.lambda.free [Mass/Vol]10.6 mg/L5.7-26.3 [facility]ultman Hospitalerum total protein measurementOrdered By: Christian Carlos on 21-75-6353Bcjhhnl [Mass/Vol]6.3 g/dLNormal6.0-8.5FWexner Medical CenterComment on above:Performed By: #### SPE, KAPPA, JIGAR SERUM #### [facility] ,Sodium [Moles/volume] in Serum or Plasmaon 39-80-7400Wefrmh [Moles/Vol]140 mmol/SWpeuhm481-456WEPR HealthcareComment on above:Performed By: #### SCAN CBC, LDH, CMP #### [facility] [address] [place] [address] USAUrea nitrogen [Mass/volume] in Serum or Plasmaon 86-84-4436Xxew nitrogen [Mass/Vol]22 mg/dLNormal7-25NOME HealthcareComment on above:Performed By: #### SCAN CBC, LDH, CMP #### [facility] [address] [id number] USAaPTT in Platelet poor plasma by Coagulation assayOrdered By: Christian Carlos on 30-70-9919qJFT Coag (PPP) [Time]30.1 s25.1-36.5 [facility] HospitalComment on above:A hematocrit value greater than 55% may lead to inaccurate results in coagulation testing. Patientshaving hematocrit values >55% require a special collection tube for coagulation studies. Please contact the laboratory at [phone] for redraw instructions. FLOWCYTOMETRY [facility] HOSPITALGENOMIC 81-49-5243HVDMATIRQRRIO [facility] Comment on above:See report. Scanned copy available in EMR.[facility] Alanine aminotransferase [Enzymatic activity/volume] in Serum or PlasmaOrdered By: Christian Carlos on 75-22-8688HOD [Catalytic activity/Vol]30 U/LNormal7-52 [facility] HospitalComment on above:Performed By: #### SCAN CBC, LDH, CMP #### [facility] [address] [id number] USAAlbumin [Mass/volume] in Serum or Plasma by Bromocresol green (BCG) dye binding methoOrdered By: Christian Carlos on 85-20-8706Wfziqci BCG dye [Mass/Vol]4.4 g/dL3.5-5.7FWexner Medical CenterAlkaline phosphatase [Enzymatic activity/volume] in Serum or PlasmaOrdered By: Christian Carlos on 47-03-4585LCP [Catalytic activity/Vol]86 U/DIhaksx43-943GftsdxuumParma Community General HospitalComment on above:Performed By: #### SCAN CBC, LDH, CMP #### [facility] [address] [place] [address] USAAspartate aminotransferase [Enzymatic activity/volume] in Serum or PlasmaOrdered By: Christian Carlos on 93-65-1277TFZ [Catalytic activity/Vol]33 U/MOtmccr94-79KgzihargdParma Community General HospitalComment on above: Performed By: #### SCAN CBC, LDH, CMP #### [facility] [address] [place] [address] USABand form neutrophils/100 leukocytes in Blood by Manual countOrdered By: Christian Carlos on 14-65-3207Jhfr form neutrophils/100 WBC (Bld)2 %Normal0-5FWexner Medical CenterComment on above:Performed By: #### SCAN CBC, LDH, CMP #### [place] [address] USABasophils Auto (Bld) [#/Vol]Ordered By: Christian Carlos on 60-18-8283Ttcesubtt (Bld) [#/Vol]N/[facility] Basophils/100 WBC Auto (Bld)Ordered By: Christian Carlos on 01-13-2025 Basophils/100 WBC (Bld)N/[facility], AvonBilirubin.total [Mass/volume] in Serum or PlasmaOrdered By: Christian Carlos on 01-13-2025 Bilirubin [Mass/Vol]1.7 mg/dLHigh0.3-1.0[facility] HospitalComment on above:Samples from patients who have [...] By: #### SCAN CBC, LDH, CMP #### [place] [address] USACalcium [Mass/volume] in Serum or PlasmaOrdered By: Christian Carlos on 27-35-7522Ujeqnun [Mass/Vol]9.0 mg/dLNormal8.6-10.3 [facility] HospitalComment on above:Performed By: #### SCAN CBC, LDH, CMP #### [place] [address] USACarbon dioxide, total [Moles/volume] in Serum or Plasma Ordered By: Christian Carlos on 76-72-6379MO9 [Moles/Vol]33.8 mmol/LHigh 21.0-31.0[facility] HospitalComment on above:Performed By: #### SCAN CBC, LDH, CMP #### [place] [address] USAChloride [Moles/volume] in Serum or PlasmaOrdered By: Christian Carlos on 70-26-5286Bwhgpfzi [Moles/Vol]104 mmol/MTyanxn91-919 [facility] HospitalComment on above:Performed By: #### SCAN CBC, LDH, CMP #### [place] [address] USAComprehensive Metabolic Panelon 09-06-9246Smffwmp [Mass/Vol]4.4 g/dLNormal3.5-5.7The [facility] Physician GroupComment on above: Performed By: #### SCAN CBC, LDH, CMP #### [place] [address] USACreatinine Clr Calc Ktwytrrd60.09NoCritical access hospital Physician GroupComment on above:Performed By: #### SCAN CBC, LDH, CMP #### [facility] [address] [place] [address] USAGFR/1.73 sq M.predicted MDRD (S/P/Bld) [Vol rate/Area] mL/min/{1.73_m2}NormalThe [facility] Hospital Physician GroupComment on above:Performed By: #### SCAN CBC, LDH, CMP #### [facility] [address] [place] [address] USAComprehensive metabolic panelon 71-01-2881Uxwobei [Mass/Vol]4.4 g/dL3.5 - 5.7 g/dLNOMS HealthcareAlbumin/Globulin [Mass ratio]2.6 {ratio}NOM HealthcareALP [Catalytic activity/Vol]86 U/L34 - 104 U/LNOMS HealthcareALT [Catalytic activity/Vol]30 U/L7 - 52 U/LNOMS HealthcareAnion gap [Moles/Vol]7.3 mmol/L6.0 - 15.0 meq/LNOMS HealthcareAST [Catalytic activity/Vol] 33 U/L13 - 39 U/LNOMS HealthcareBilirubin [Mass/Vol]1.7 mg/dLHigh0.3 - 1.0 mg/dL [facility] HealthcareComment on above:Samples from patients who have taken Naproxen have shown spurious elevation in Total Bilirubin levels. A metabolite of Naproxen, O-desmethylnaproxen, has been shown to interfere with the Jenjoryik-Groleslie method for measuring Total Bilirubin. Calcium [Mass/Vol]9 mg/dL8.6 - 10.3 mg/dLNOMS HealthcareChloride [Moles/Vol]104 mmol/L98 - 107 mmol/LNOMS HealthcareCO2 [Moles/Vol]33.8 mmol/LHigh21.0 - 31.0 mmol/LNOMS HealthcareCreatinine (U) [Mass/Vol]0.95 mg/dL0.70 - 1.30 mg/dLNOME HealthcareCREATININE CLR CALC UNEWQIUJ20.09NOMS HealthcareESTIMATED GFRmL/Min NOMS HealthcareGlobulin (S) [Mass/Vol]1.7 g/dLNOMS [...] mmol/LNOMS HealthcareUrea nitrogen [Mass/Vol]14 mg/dL7 - 25 mg/dLNOME Healthcare Creatinine [Mass/volume] in Serum or PlasmaOrdered By: Christian Carlos on 83-12-2290Uscaycdhfa [Mass/Vol]0.95 mg/dLNormal0.70-1.30[facility] HospitalComment on above:Performed By: #### SCAN CBC, LDH, CMP #### [place] [address] USADiff and CBCon 74-79-6731Usxpf Platelet Tally1 /100{WBC} NormalThe [facility] Physician GroupComment on above:Performed By: #### SCAN CBC, LDH, CMP #### [place] [address] USAMean Corpuscular HGB Conc35.6 g/nRBwnsxs12.5-35.6The [facility] Physician GroupComment on above:Performed By: #### SCAN CBC, LDH, CMP #### [facility] [address] [id number] USAPlatelet EstimateDecreasedNormalNormHalifax Health Medical Center of Daytona Beach Physician GroupComment on above:Performed By: #### SCAN CBC, LDH, CMP #### [place] [address] USAPlatelet MorphologyNormalNormalNormHalifax Health Medical Center of Daytona Beach Physician GroupComment on above:Result Comment: PERFORMED BY: [place] [address] PATHOLOGIST STOCK TRACER SUSAN FREGOSO M.D.Performed By: #### SCAN CBC, LDH, CMP #### [facility] [address] [place] [address] USAReactive Lymphocytes2 %Normal0-12The [facility] Physician GroupComment on above:Performed By: #### SCAN CBC, LDH, CMP #### [facility] [address] [place] [address] USAEosinophils Auto (Bld) [#/Vol]Ordered By: Christian Carlos on 18-93-2787Ytftvvsprne (Bld) [#/Vol]N/[facility] AvonEosinophils/100 WBC Auto (Bld)Ordered By: Christian Carlos on 01-13-2025 Eosinophils/100 WBC (Bld)N/[facility] AvonEosinophils/100 leukocytes in Blood by Manual countOrdered By: Christian Carlos on 01-13-2025 Eosinophils/100 WBC (Bld)4 %High101 Robinson StreetComment on above:Performed By: #### SCAN CBC, LDH, CMP #### [facility] [address] [place] [address] USAErythrocyte distribution width [Ratio] by Automated count Ordered By: Christian Carlos on 30-11-0853Wxtzhctbric distribution width (RBC) [Ratio]14.0 %Vthwvu57.0-14.8[facility] HospitalComment on above: Performed By: #### SCAN CBC, LDH, CMP #### [facility] [address] [place] [address] USAErythrocyte morphology finding [Identifier] in Blood Ordered By: Christian Carlos on 74-39-2297JHQ morphology finding Nom (Bld) NormalNormalNormalParma Community General HospitalComment on above:Performed By: #### SCAN CBC, LDH, CMP #### [facility] [address] [place] [address] USAErythrocytes [#/volume] in Blood by Automated countOrdered By: Christian Carlos on 97-35-8256DHQ (Bld) [#/Vol]4.15 10*6/uLNormal3.90-5.60 [facility] HospitalComment on above:Performed By: #### SCAN CBC, LDH, CMP #### [facility] [address] [place] [address] USAFlowcytometry [employer] 33-15-3094Xnopxterdvouw NeogenomicHCA Florida Starke Emergency Physician GroupComment on above:Result Comment: See report. Scanned copy available in EMR. PERFORMED BY: [place] [address] PATHOLOGIST STOCK TRACER DANIELLE QUINONES M.D.Performed By: #### FLOW NEOGENOMIC #### [place] [address] USAGiant platelets/100 leukocytes [Ratio] in Blood by Manual countOrdered By: Christian Carlos on 79-10-4249Msiny platelets/100 WBC Manual cnt (Bld) [Ratio]1 /100{WBC}[facility] HospitalGlucose [Mass/volume] in Serum or PlasmaOrdered By: Christian Carlos on 01-13-2025 Glucose [Mass/Vol]95 mg/dVVkfufz73-637YisnkbgwdParma Community General HospitalComment on above:ADA recommended reference rangeRandom Glucose [...] By: #### SCAN CBC, LDH, CMP #### [facility] [address] [place] [address] USAHematocrit [Volume Fraction] of Blood by Automated count Ordered By: Christian Carlos on 52-78-3574Zssjqmhloa (Bld) [Volume fraction] 38.7 %Low38.8-50.0[facility] HospitalComment on above:Performed By: #### SCAN CBC, LDH, CMP #### [facility] [address] [place] [address] USAHemoglobin [Mass/volume] in BloodOrdered By: Christian Carlos on 62-82-7159Mykpqbapzo (Bld) [Mass/Vol]13.8 g/pAIfsyjb68.0-17.0 [facility] HospitalComment on above:Performed By: #### SCAN CBC, LDH, CMP #### [facility] [address] [place] [address] USALDH Lactate Dehydrogenaseon 39-67-4844RXO Lactate Ljbaxvkkludso312 U/HFlgv166-061Xkg [facility] Physician GroupComment on above: Result Comment: PERFORMED BY: [facility] [address] [place] [address] PATHOLOGIST STOCK TRACER SUSAN FREGOSO M.D.Performed By: #### SCAN CBC, LDH, CMP #### [facility] [address] [id number] USALDH Lactate to pyruvate reaction [Catalytic activity/Vol] on 94-41-7873CUU LACTATE SQAGJQIFZGTCI790 U/JJhwi926 - 271 U/[facility] Lactate dehydrogenase [Enzymatic activity/volume] in Serum or Plasma by Lactate to pyOrdered By: Christian Carlos on 99-81-4679SAN Lactate to pyruvate reaction [Catalytic activity/Vol]310 U/JIvdx025-740IccofptdiParma Community General Hospital Leukocytes [#/volume] corrected for nucleated erythrocytes in Blood by Automated counOrdered By: Christian Carlos on 24-86-3528CFP corrected for nucl RBC Auto (Bld) [#/Vol]16.9 10*3/uLHigh4.1-10.5FWexner Medical CenterLeukocytes [#/volume] in Blood by Automated countOrdered By: Christian Carlos on 06-08-4868PLE (Bld) [#/Vol]16.9 10*3/uLHigh4.1-10.5FWexner Medical CenterComment on above:Performed By: #### SCAN CBC, LDH, CMP #### [facility] [address] [place] [address] USALymphocytes Auto (Bld) [#/Vol]Ordered By: Christian Carlos on 55-29-6826Fumezruduav (Bld) [#/Vol]N/[facility], AvonLymphocytes/100 WBC Auto (Bld)Ordered By: Christian Carlos on 01-13-2025 Lymphocytes/100 WBC (Bld)N/[facility], AvonLymphocytes/100 leukocytes in Blood by Manual countOrdered By: Christian Carlos on 01-13-2025 Lymphocytes/100 WBC (Bld)48 %Umlo52-27GokmbjcujParma Community General HospitalComment on above:Performed By: #### SCAN CBC, LDH, CMP #### [facility] [address] [Entitic mass] by Automated countOrdered By: Christian Carlos on 35-08-8239CGF (RBC) [Entitic mass]33.1 uxWtgsou76.5-35.2FWexner Medical CenterComment on above:Performed By: #### SCAN CBC, LDH, CMP #### [facility] [address] Auto (RBC) [Mass/Vol]Ordered By: Christian Carlos on 52-15-3048GXTQ (RBC) [Mass/Vol]35.6 g/dL32.5-35.6FWexner Medical CenterMCV [Entitic volume] by Automated countOrdered By: Christian Carlos on 01-15-7572HUK (RBC) [Entitic vol]93.1 rALmuhaf20.5-101[facility] HospitalComment on above:Performed By: #### SCAN CBC, LDH, CMP #### [facility] [address] [place] [address] USAMonocytes Auto (Bld) [#/Vol]Ordered By: Christian Carlos on 50-65-7235Cpdrfipec (Bld) [#/Vol]N/[facility] Monocytes/100 WBC Auto (Bld)Ordered By: Christian Carlos on 01-13-2025 Monocytes/100 WBC (Bld)N/[facility] AvonMonocytes/100 leukocytes in Blood by Manual countOrdered By: Christian Carlos on 01-13-2025 Monocytes/100 WBC (Bld)6 %Normal2-11[facility] HospitalComment on above:Performed By: #### SCAN CBC, LDH, CMP #### [facility] [address] [place] [address] USANeutrophils Auto (Bld) [#/Vol]Ordered By: Christian Carlos on 85-36-1514Ttusippdrmy (Bld) [#/Vol]N/[facility], AvonNeutrophils/100 WBC Auto (Bld)Ordered By: Christian Carlos on 01-13-2025 Neutrophils/100 WBC (Bld)N/[facility], AvonNo Panel Informationon 61-86-4864Ipjltnuzksbhav and review of laboratory resultsAbnormAurora St. [facility] [place] Panel InformationOrdered By: Christian Carlos on 55-75-7151Crhqrlyhv GFR (CKD-EPI)> 60.0 mL/MinParma Community General HospitalPharmacy Creatinine Clearance (Chem85.09[facility] Nucleated erythrocytes [Presence] in Blood by Automated countOrdered By: Christian Carlos on 96-05-2117Nusparwup RBC Auto Ql (Bld)N/[facility], AvonPlatelet adequacy [Presence] in Blood by Light microscopyOrdered By: Christian Carlos on 01-41-5220Ljfpokwaa LM Ql (Bld)DecreasedNormalParma Community General HospitalPlatelet mean volume [Entitic volume] in Blood by Automated countOrdered By: Christian Carlos on 60-84-3620Qscnfwwl mean volume (Bld) [Entitic vol]7.3 fLNormal6.6-10.1FWexner Medical CenterComment on above:Performed By: #### SCAN CBC, LDH, CMP #### [facility] [address] [place] [address] USAPlatelet morphology finding [Identifier] in BloodOrdered By: Christian Carlos on 92-08-1967Lnokwpao morphology finding Nom (Bld)Normal NormalParma Community General HospitalPlatelets [#/volume] in Blood by Automated countOrdered By: Christian Carlos on 05-66-7424Pagmgcsan (Bld) [#/Vol]136 10*3/iGGfw282-708QmsrwvvzaParma Community General HospitalComment on above: Performed By: #### SCAN CBC, LDH, CMP #### [facility] [address] [place] [address] USAPotassium [Moles/volume] in Serum or PlasmaOrdered By: Christian Carlos on 60-50-7911Wkurqfpgz [Moles/Vol]4.1 mmol/LNormal3.5-5.1 [facility] HospitalComment on above:Performed By: #### SCAN CBC, LDH, CMP #### [facility] [address] [place] [address] USAProtein [Mass/volume] in Serum or PlasmaOrdered By: Christian Carlos on 43-64-3825Fwzonli [Mass/Vol]6.1 g/dLLow6.4-8.9[facility] HospitalComment on above:Performed By: #### SCAN CBC, LDH, CMP #### [facility] [address] [place] [address] USASegmented neutrophils/100 leukocytes in Blood by Manual countOrdered By: Christian Carlos on 98-01-8189Eguogilok neutrophils/100 WBC (Bld)39 %Bus75-44OgitpefyjParma Community General HospitalComment on above:Performed By: #### SCAN CBC, LDH, CMP #### [facility] [address] [place] [address] USASerum globulin measurement by calculation (mass/volume) Ordered By: Christian Carlos on 92-80-6031Wdaazivi (S) [Mass/Vol]1.7 g/dLNormal [facility] HospitalComment on above:Performed By: #### SCAN CBC, LDH, CMP #### [facility] [address] [place] [address] USASerum or plasma albumin/globulin mass ratioOrdered By: Christian Carlos on 01-18-6797Dsaemcq/Globulin [Mass ratio]2.6 {ratio}Normal [facility] HospitalComment on above:Performed By: #### SCAN CBC, LDH, CMP #### [facility] [address] [place] [id number] USASerum or plasma anion gap determinationOrdered By: Christian Carlos on 61-60-0616Etkfl gap [Moles/Vol]7.3 mmol/LNormal6.0-15.0[facility] HospitalComment on above:Performed By: #### SCAN CBC, LDH, CMP #### [facility] [address] [place] [address] USASodium [Moles/volume] in Serum or PlasmaOrdered By: Christian Carlos on 53-40-6134Qkfwjb [Moles/Vol]141 mmol/DRnxebg666-053 [facility] HospitalComment on above:Performed By: #### SCAN CBC, LDH, CMP #### [place] [address] USAUrea nitrogen [Mass/volume] in Serum or PlasmaOrdered By: Christian Carlos on 30-17-3850Kiml nitrogen [Mass/Vol]14 mg/dLNormal7 [facility] HospitalComment on above:Performed By: #### SCAN CBC, LDH, CMP #### [place] [id number] USAVariant lymphocytes/100 WBC Manual cnt (Bld)Ordered By: Christian Carlos on 24-83-6729Xwhhwvs lymphocytes/100 WBC (Bld)2 %0-12[facility] HospitalA1C with Estimated Average Gluon 92-80-0204Ywhiflr [Mass/Vol]94 mg/dLNoCritical access hospital Physician GroupComment on above:Result Comment: PERFORMED BY: [place] [id number] PATHOLOGIST STOCK TRACER SUSAN FREGOSO M.D.Performed By: #### SCAN CBC, LDH, CMP #### [place] [id number] USAAlanine aminotransferase [Enzymatic activity/volume] in Serum or PlasmaOrdered By: Russell Gómez on 99-71-6036UXF [Catalytic activity/Vol] Alanine aminotransferase [Enzymatic activity/volume] in Serum or Plasma [facility] HospitalALT [Catalytic activity/Vol]28 U/LNormal [facility] HospitalComment on above:Performed By: #### LIPID, CHC CBC, EMP PSA, A1C WT eA, CMP #### [facility] [address] [place] [address] USAAlbumin [Mass/volume] in Serum or Plasma by Bromocresol green (BCG) dye binding methoOrdered By: Russell Gómez on 11-34-7437Wyhxizn BCG dye [Mass/Vol]Albumin [Mass/volume] in Serum or Plasma by Bromocresol green (BCG) dye binding metho3.5-5.7FWexner Medical CenterAlbumin BCG dye [Mass/Vol]4.3 g/dL3.5-5.7FWexner Medical CenterAlkaline phosphatase [Enzymatic activity/volume] in Serum or PlasmaOrdered By: Russell Gómez on 51-99-0905HVI [Catalytic activity/Vol]Alkaline phosphatase [Enzymatic activity/volume] in Serum or Dqgeup40-017HbyysxtjqParma Community General HospitalALP [Catalytic activity/Vol]85 U/JHjrxpb00-346Ayghrtcb[address] Comment on above:Result Comment: PERFORMED BY: [facility] [address] [place] [address] PATHOLOGIST STOCK TRACER SUSAN FREGOSO M.D.Performed By: #### LIPID, CHC CBC, EMP PSA, A1C WT eA, CMP #### [facility] [address] [place] [id number] USAAspartate aminotransferase [Enzymatic activity/volume] in Serum or PlasmaOrdered By: Russell Gómez on 61-34-3860XRD [Catalytic activity/Vol] Aspartate aminotransferase [Enzymatic activity/volume] in Serum or Gyipdg68-64 [facility] HospitalAST [Catalytic activity/Vol]29 U/KJppefa46-15 [facility] HospitalComment on above:Performed By: #### LIPID, CHC CBC, EMP PSA, A1C WTH eA, CMP #### [facility] [address] [place] [address] USABasophils Auto (Bld) [#/Vol]Ordered By: Russell Gómez on 23-33-1988Hbmxvwfti (Bld) [#/Vol]Automated basophil count0.0-0.2FWexner Medical CenterBasophils [#/volume] in Blood by Automated countOrdered By: Russell Gómez on 21-34-7261Oszepzdnk (Bld) [#/Vol]0.0 10*3/uLNormal0.0-0.2 [facility] HospitalComment on above:Result Comment: PERFORMED BY: [place] [address] PATHOLOGIST STOCK TRACER SUSAN FREGOSO M.D.Performed By: #### SCAN CBC, LDH, CMP #### [place] [address] USABasophils/100 WBC Auto (Bld)Ordered By: Russell Gómez on 97-54-3085Swkbnbxny/100 WBC (Bld)Automated basophil %.[facility] HospitalBasophils/100 leukocytes in Blood by Automated countOrdered By: Russell Gómez on 49-30-6157Jjlyakzdy/100 WBC (Bld)0.2 %Normal.[facility] HospitalComment on above:Performed By: #### SCAN CBC, LDH, CMP #### [place] [address] USABilirubin.total [Mass/volume] in Serum or PlasmaOrdered By: Russell Gómez on 95-13-8624Jpsylszvj [Mass/Vol]Bilirubin.total [Mass/volume] in Serum or Plasma0.3-1.0[facility] HospitalBilirubin [Mass/Vol]1.0 mg/dLNormal0.3-1.0[facility] HospitalComment on above:Performed By: #### LIPID, CHC CBC, EMP PSA, A1C WTH eA, CMP #### [place] [address] USABlood estimated average glucose determination by estimation from glycated hemoglobinOrdered By: Russell Gómez on 29-53-0322Uuuvfju glucose Estimated from glycated hemoglobin (Bld) [Mass/Vol]Glucose mean value [Mass/volume] in Blood Estimated from glycated hemoglobinParma Community General HospitalAverage glucose Estimated from glycated hemoglobin (Bld) [Mass/Vol]94 mg/dLParma Community General HospitalCalcium [Mass/volume] in Serum or PlasmaOrdered By: Russell Gómez on 10-80-3029Bdnwcno [Mass/Vol]Calcium [Mass/volume] in Serum or Plasma8.6-10.3FWexner Medical CenterCalcium [Mass/Vol]9.5 mg/dLNormal8.6-10.3FWexner Medical CenterComment on above:Performed By: #### LIPID, CHC CBC, EMP PSA, A1C WTH eA, CMP #### [facility] [address] [place] [address] USACarbon dioxide, total [Moles/volume] in Serum or Plasma Ordered By: Russell Gómez on 83-64-0757GT5 [Moles/Vol]Carbon dioxide, total [Moles/volume] in Serum or BimhfpDjat37.0-31.0[facility] CO2 [Moles/Vol]34.1 mmol/LHigh21.0-31.0[facility] HospitalComment on above:Performed By: #### LIPID, CHC CBC, EMP PSA, A1C WTH eA, CMP #### [facility] [address] [place] [address] USAChloride [Moles/volume] in Serum or PlasmaOrdered By: Russell Gómez on 22-63-0314Ritmxyys [Moles/Vol]Chloride [Moles/volume] in Serum or Zvzeaa35-208YbztwiyasParma Community General HospitalChloride [Moles/Vol]104 mmol/L Rytgfm40-157Jutekiy[address] [place], [place] [address]Comment on above:Performed By: #### LIPID, CHC CBC, EMP PSA, A1C WTH eA, CMP #### [facility] [address] [place] [address] USACholesterol [Mass/volume] in Serum or PlasmaOrdered By: Russell Gómez on 23-51-2258Aosrjrstbkx [Mass/Vol]Cholesterol [Mass/volume] in Serum or Ysmyzu207-660RmvvjlghmParma Community General HospitalComment on above:Chol less than 200 mg/dl low riskChol 201-239 mg/dl borderline riskChol 240 mg/dl and greater high riskCholesterol [Mass/Vol]169 mg/dDOpdwvx244-831HxnviokotParma Community General HospitalComment on above:Chol less than 200 mg/dl low riskChol 201-239 mg/dl borderline riskChol 240 mg/dl and greater high riskResult Comment: Chol less than 200 mg/dl low risk Chol 201-239 mg/dl borderline risk Chol 240 mg/dl and greater high riskPerformed By: #### SCAN CBC, LDH, CMP #### [facility] [address] [place] [address] USACholesterol in HDL [Mass/volume] in Serum or PlasmaOrdered By: Russell Gómez on 78-57-6150Muadfnbhmzb in HDL [Mass/Vol]Serum or plasma high density lipoprotein (HDL) cholesterol rvpayhdhquj08-32RkbapenesParma Community General HospitalComment on above:HDL CHOL ATP-III CLASSIFICATION Cardiovascular RiskHDL > or equal to 60 mg/dL LOWHDL < 40 mg/dL HIGHCholesterol in HDL [Mass/Vol]59 mg/cSCoxcws62-28OqjorhkoqParma Community General HospitalComment on above:HDL CHOL ATP- III CLASSIFICATION Cardiovascular RiskHDL > or equal to 60 mg/dL LOWHDL < 40 mg/dL HIGHResult Comment: HDL CHOL ATP-III CLASSIFICATION Cardiovascular Risk HDL > or equal to 60 mg/dL LOW HDL < 40 mg/dL HIGHPerformed By: #### SCAN CBC, LDH, CMP #### [facility] [address] [place] [address] USACholesterol in LDL Calc [Mass/Vol]Ordered By: Russell Gómez on 12-29-8370Nofwebcidcd in LDL [Mass/Vol]Cholesterol in LDL [Mass/volume] in Serum or Plasma by calculation0[facility] HospitalComment on above:LDL ATP III CLASSIFICATIONLDL less than 100 mg/dL OptimalLDL 100-129 mg/dL Near or above fzqhoagTLO217-969 mg/dL Borderline highLDL 160-189 mg/dL HighLDL greater than 189 mg/dL Very highCholesterol in LDL [Mass/Vol]93 mg/dL0- [facility] HospitalComment on above:LDL ATP III CLASSIFICATIONLDL less than 100 mg/dL OptimalLDL 100-129 mg/dL Near or above jprutmnQIY483-070 mg/dL Borderline highLDL 160-189 mg/dL HighLDL greater than 189 mg/dL Very high Cholesterol in VLDL Calc [Mass/Vol]Ordered By: Russell Gómez on 11-30-2024 Cholesterol in VLDL [Mass/Vol]Cholesterol in VLDL [Mass/volume] in Serum or Plasma by calculationParma Community General HospitalCholesterol in VLDL [Mass/Vol]17 mg/dLParma Community General HospitalComplete Blood Count no reflexon 30-08-0231Rnfe Corpuscular HGB Conc34.3 g/tCGrcmpq59.5-35.6[facility] Physician GroupComment on above:Performed By: #### SCAN CBC, LDH, CMP #### [facility] [address] [place] [address] USANRBC%0.2 /100{WBC}Normal0-0.5The [facility] Comment on above:Performed By: #### SCAN CBC, LDH, CMP #### [facility] [address] [place] [address] USAComprehensive Metabolic Panelon 89-49-7588Evkavzb [Mass/Vol]4.3 g/dLNormal3.5-5.7[facility] Physician [facility] HospitalComment on above: Performed By: #### LIPID, CHC CBC, EMP PSA, A1C WTH eA, CMP #### [facility] [address] [place] [id number] USAGFR/1.73 sq M.predicted MDRD (S/P/Bld) [Vol rate/Area] mL/min/{1.73_m2}NormalThe [facility] Physician GroupComment on above:Performed By: #### LIPID, CHC CBC, EMP PSA, A1C WT eA, CMP #### [facility] [address] [place] [address] USACreatinine [Mass/volume] in Serum or PlasmaOrdered By: Russell Gómez on 36-21-4360Fohucatrdu [Mass/Vol]Creatinine [Mass/volume] in Serum or Plasma0.70-1.30[facility] HospitalCreatinine [Mass/Vol]0.81 mg/dLNormal0.70-1.30[facility] HospitalComment on above:Performed By: #### LIPID, CHC CBC, EMP PSA, A1C [facility] eA, CMP #### [facility] [address] [place] [id number] USAEmployee PSA Totalon 45-94-2455RNZ Total ([facility] Orders)0.650 ng/mLNormal0.000-4.000The [facility] Physician GroupComment on above:Result Comment: Serial tumor marker results determined by assays using different manufacturers or methods may not be comparable. [facility] rn hospice and method: [employer] DXI, CHEMILUMINESCENT IMMUNOASSAY. PERFORMED BY: [place] [address] PATHOLOGIST STOCK TRACER SUSAN FREGOSO M.D.Performed By: #### LIPID, CHC CBC, EMP PSA, A1C [facility] eA, CMP #### [facility] [address] [place] [address] USAEosinophils Auto (Bld) [#/Vol]Ordered By: Russell Gómez on 40-13-3340Khfiuvgnrqi (Bld) [#/Vol]Automated eosinophil count0.0-0.45[facility] HospitalEosinophils [#/volume] in Blood by Automated countOrdered By: Russell Gómez on 93-85-9111Wltmkotavmd (Bld) [#/Vol]0.2 10*3/uLNormal0.0-0.45 [facility] HospitalComment on above:Performed By: #### SCAN CBC, LDH, CMP #### [facility] [address] [place] [address] USAEosinophils/100 WBC Auto (Bld)Ordered By: Russell Gómez on 73-66-4859Dnhocbukpti/100 WBC (Bld)Automated eosinophil %.[facility] HospitalEosinophils/100 leukocytes in Blood by Automated countOrdered By: Russell Gómez on 48-38-9117Rpemzrgixqy/100 WBC (Bld)1.1 %Normal.[facility] HospitalComment on above:Performed By: #### SCAN CBC, LDH, CMP #### [facility] [address] [place] [address] USAErythrocyte distribution width Auto (RBC) [Ratio]Ordered By: Russell Gómez on 65-30-1808Zfszjbynonx distribution width (RBC) [Ratio] Erythrocyte distribution width [Ratio] by Automated count12.0-14.8[facility] HospitalErythrocyte distribution width [Ratio] by Automated count Ordered By: Russell Gómez on 05-43-5245Bfviubswjyv distribution width (RBC) [Ratio] 13.2 %Glawye04.0-14.8[facility] HospitalComment on above:Performed By: #### SCAN CBC, LDH, CMP #### [facility] [address] [place] [id number] USAErythrocytes [#/volume] in Blood by Automated countOrdered By: Russell Gómez on 74-20-4422KQH (Bld) [#/Vol]4.67 10*6/uLNormal3.90-5.60 [facility] HospitalComment on above:Performed By: #### SCAN CBC, LDH, CMP #### [facility] [address] [place] [id number] USAGlobulin Calc (S) [Mass/Vol]Ordered By: Russell Gómez on 27-87-1981Hvrjuxpj (S) [Mass/Vol]Serum globulin measurement by calculation (mass/volume)[facility] HospitalGlucose [Mass/volume] in Serum or PlasmaOrdered By: Russell Gómez on 74-39-4591Tiewaiv [Mass/Vol]Glucose [Mass/volume] in Serum or Thihwj44-133XyquouzwbParma Community General HospitalComment on above:ADA recommended reference rangeRandom Glucose Reference Range is dependent on time and content of last meal. Glucose of more than 200 mg/dL in a nonstressed, ambulatory subject supports the diagnosisof Diabetes Mellitus. Glucose [Mass/Vol]91 mg/nWLyhxhf97-839TkqdsvcbqParma Community General HospitalComment on above:ADA recommended reference rangeRandom Glucose [...] EMP PSA, A1C WTH eA, CMP #### [facility] [address] [place] [address] USAHematocrit Auto (Bld) [Volume fraction]Ordered By: Russell Gómez on 54-87-7662Jhjzsqykkf (Bld) [Volume fraction]Hematocrit [Volume Fraction] of Blood by Automated count38.8-50.0[facility] HospitalHematocrit [Volume Fraction] of Blood by Automated countOrdered By: Russell Gómez on 02-19-9172Ethpwijcye (Bld) [Volume fraction]43.3 %Bdwwmm11.8-50.0[facility] HospitalComment on above:Performed By: #### SCAN CBC, LDH, CMP #### [facility] [address] [place] [address] USAHemoglobin A1c/Hemoglobin.total in BloodOrdered By: Russell Gómez on 08-81-6105QlD1b (Bld) [Mass fraction]Hemoglobin A1c percentage4.3-5.6 [facility] HospitalComment on above:Increased risk for diabetes: 5.7 - 6.4diabetes: >6.4glycemic control for adults with diabetes: <7.0HbA1c (Bld) [Mass fraction]4.9 %Normal4.3-5.6FWexner Medical CenterComment on above:Increased risk for diabetes: 5.7 - 6.4diabetes: >6.4glycemic control for adults with diabetes: <7.0Result Comment: Increased risk for diabetes: 5.7 - 6.4 diabetes: >6.4 glycemic control for adults with diabetes: <7.0Performed By: #### SCAN CBC, LDH, CMP #### [facility] [address] [place] [address] USAHemoglobin [Mass/volume] in BloodOrdered By: Russell Gómez on 68-63-9027Xjwwzjfyyu (Bld) [Mass/Vol]Hemoglobin [Mass/volume] in Blood13.0-17.0 [facility] HospitalHemoglobin (Bld) [Mass/Vol]14.9 g/dLNormal 13.0-17.0[facility] HospitalComment on above:Performed By: #### SCAN CBC, LDH, CMP #### [facility] [address] [place] [address] USALeukocytes [#/volume] corrected for nucleated erythrocytes in Blood by Automated counOrdered By: Russell Gómez on 14-75-4934DIV corrected for nucl RBC Auto (Bld) [#/Vol]Leukocytes [#/volume] corrected for nucleated erythrocytes in Blood by Automated counHigh4.1-10.5FWexner Medical CenterWBC corrected for nucl RBC Auto (Bld) [#/Vol]19.5 10*3/uLHigh4.1-10.5 [facility] HospitalLeukocytes [#/volume] in Blood by Automated countOrdered By: Russell Gómez on 52-31-5791IWG (Bld) [#/Vol]19.5 10*3/uLHigh 4.1-10.5FWexner Medical CenterComment on above:Performed By: #### SCAN CBC, LDH, CMP #### [facility] [address] [place] [address] USALipid Panelon 64-56-1454YUB Cholesterol,Rdlluhhopa58 mg/dL Normal0-100The [facility] Physician GroupComment on above:Result Comment: LDL ATP III CLASSIFICATION LDL less than 100 mg/dL Optimal LDL 100-129 mg/dL Near or above optimal LDL 130-159 mg/dL Borderline high LDL 160-189 mg/dL High LDL greater than 189 mg/dL Very highPerformed By: #### SCAN CBC, LDH, CMP #### [facility] [address] [place] [address] USATriglyceride w/Swzlxm95 mg/dLNormal0-149The [facility] Physician GroupComment on above:Result Comment: TRIG ATP III CLASSIFICATION TRIG less than 150 mg/dL Normal TRIG 150-199 mg/dL Borderline high TRIG 200-500 mg/dL High TRIG greater than 500 mg/dL Very high Standard traceable to the Center for Disease Conrtrol and Prevention (CDC) test method.Performed By: #### SCAN CBC, LDH, CMP #### [facility] [address] [place] [address] USAVLDL HNNHKAINHCN86 mg/dLNoCritical access hospital Physician GroupComment on above:Performed By: #### SCAN CBC, LDH, CMP #### [facility] [address] [place] [address] USALymphocytes Auto (Bld) [#/Vol]Ordered By: Russell Gómez on 72-19-2904Cdfduxjkmjh (Bld) [#/Vol]Lymphocytes [#/volume] in Blood by Automated countHigh1.00-4.8[facility] HospitalLymphocytes [#/volume] in Blood by Automated countOrdered By: Russell Gómez on 82-93-6750Glpempysdwq (Bld) [#/Vol]14.4 10*3/uLHigh1.00-4.[address] [place], [place] [address]Comment on above:Performed By: #### SCAN CBC, LDH, CMP #### [facility] [address] [place] [address] USALymphocytes/100 WBC Auto (Bld)Ordered By: Russell Gómez on 01-50-3716Wqwkcuandpx/100 WBC (Bld)Lymphocytes/100 leukocytes in Blood by Automated count.[facility] HospitalLymphocytes/100 leukocytes in Blood by Automated countOrdered By: Russell Gómez on 46-67-9410Uejmghfymon/100 WBC (Bld)74.0 %Normal.[facility] HospitalComment on above:Performed By: #### SCAN CBC, LDH, CMP #### [facility] [address] [place] [id number] [facility] Auto (RBC) [Entitic mass]Ordered By: Russell Gómez on 33-72-6492EDY (RBC) [Entitic mass]MCH [Entitic mass] by Automated count27.5-35.2 [facility] [Entitic mass] by Automated countOrdered By: Russell Gómez on 10-97-5508LXQ (RBC) [Entitic mass]31.8 amSotstk69.5-35.2 [facility] HospitalComment on above:Performed By: #### SCAN CBC, LDH, CMP #### [facility] [address] [place] [address] USAHC Auto (RBC) [Mass/Vol]Ordered By: Russell Gómez on 02-29-4089WIZW (RBC) [Mass/Vol]MCHC [Mass/volume] by Automated count32.5-35.6 [facility] CenterHC (RBC) [Mass/Vol]34.3 g/dL32.5-35.6 [facility] HospitalMCV Auto (RBC) [Entitic vol]Ordered By: Russell Gómez on 69-30-8514EHL (RBC) [Entitic vol]MCV [Entitic volume] by Automated count 83.5-101[facility] Medical CenterV [Entitic volume] by Automated count Ordered By: Russell Gómez on 27-23-5004BKA (RBC) [Entitic vol]92.8 aFUuebaz66.5-101 [facility] HospitalComment on above:Performed By: #### SCAN CBC, LDH, CMP #### [facility] [address] [place] [address] USAMonocytes Auto (Bld) [#/Vol]Ordered By: Russell Gómez on 29-29-6696Ssklnekql (Bld) [#/Vol]Automated blood monocyte count0.0-0.8[facility] HospitalMonocytes [#/volume] in Blood by Automated countOrdered By: Russell Gómez on 17-38-7302Pefuqteuh (Bld) [#/Vol]0.4 10*3/uLNormal0.0-0.8 [facility] HospitalComment on above:Performed By: #### SCAN CBC, LDH, CMP #### [facility] [address] [place] [address] USAMonocytes/100 WBC Auto (Bld)Ordered By: Russell Gómez on 07-36-4913Jcjsvvycx/100 WBC (Bld)Automated monocyte %.[facility] HospitalMonocytes/100 leukocytes in Blood by Automated countOrdered By: Russell Gómez on 05-23-1336Wwccirfkv/100 WBC (Bld)2.3 %Normal.[facility] HospitalComment on above:Performed By: #### SCAN CBC, LDH, CMP #### [facility] [address] [place] [id number] USANeutrophils Auto (Bld) [#/Vol]Ordered By: Russell Gómez on 51-85-5995Cbxxvpemlel (Bld) [#/Vol]Neutrophils [#/volume] in Blood by Automated count1.8-7.7FWexner Medical CenterNeutrophils [#/volume] in Blood by Automated countOrdered By: Russell Gómez on 99-33-7062Aawsdvfjjmu (Bld) [#/Vol]4.4 10*3/uLNormal1.8-7.7FWexner Medical CenterComment on above:Performed By: #### SCAN CBC, LDH, CMP #### [facility] [address] [place] [address] USANeutrophils/100 WBC Auto (Bld)Ordered By: Russell Gómez on 37-90-3966Sdgwwtbitgv/100 WBC (Bld)Automated neutrophil %.[facility] HospitalNeutrophils/100 leukocytes in Blood by Automated countOrdered By: Russell Gómez on 60-49-4088Ahujajydqht/100 WBC (Bld)22.4 %Normal.[facility] HospitalComment on above:Performed By: #### SCAN CBC, LDH, CMP #### [facility] [address] [place], [place] [id number] USANo Panel InformationOrdered By: Russell Gómez on 11-30-2024 Estimated GFR (CKD-EPI)> 60.0 mL/MinParma Community General HospitalPharmacy Creatinine Clearance (ChemN/[facility], AvonNucleated erythrocytes [Presence] in Blood by Automated countOrdered By: Russell Gómez on 29-46-2696Blsaaykcq RBC Auto Ql (Bld)Nucleated erythrocytes [Presence] in Blood by Automated count0-0.5FWexner Medical CenterNucleated RBC Auto Ql (Bld)0.2 /100{WBC}0-0.5FWexner Medical CenterPlatelet mean volume Auto (Bld) [Entitic vol]Ordered By: Russell Gómez on 59-67-8155Uglcletu mean volume (Bld) [Entitic vol]Platelet mean volume [Entitic volume] in Blood by Automated count6.6-10.1FWexner Medical CenterPlatelet mean volume [Entitic volume] in Blood by Automated countOrdered By: Russell Gómez on 70-98-1296Guycxwnx mean volume (Bld) [Entitic vol]8.6 fLNormal6.6-10.1FWexner Medical CenterComment on above:Performed By: #### SCAN CBC, LDH, CMP #### [facility] [address] [place] [address] USAPlatelets Auto (Bld) [#/Vol]Ordered By: Russell Gómez on 35-93-8955Swvxcomul (Bld) [#/Vol]Platelets [#/volume] in Blood by Automated xmuzzQvy300-276PmkgjwockParma Community General HospitalPlatelets [#/volume] in Blood by Automated countOrdered By: Russell Gómez on 52-76-2965Ujpvukiko (Bld) [#/Vol]121 10*3/xCLnp792-429Neyfgw[address] [place], [place] [address]Comment on above:Performed By: #### SCAN CBC, LDH, CMP #### [facility] [address] [place] [id number] USAPotassium [Moles/volume] in Serum or PlasmaOrdered By: Russell Gómez on 63-41-4843Qtwmdipjz [Moles/Vol]Potassium [Moles/volume] in Serum or Plasma3.5-5.1FWexner Medical CenterPotassium [Moles/Vol]3.8 mmol/L Normal3.5-5.1FWexner Medical CenterComment on above:Performed By: #### LIPID, CHC CBC, EMP PSA, A1C WTH eA, CMP #### [facility] [address] [place] [id number] USAProstate specific Ag [Mass/volume] in Serum or Plasma Ordered By: Russell Gómez on 29-06-8150Wviopphk specific Ag [Mass/Vol]Prostate specific Ag [Mass/volume] in Serum or Plasma0.000-4.000[facility] HospitalComment on above:Serial tumor marker results determined by assays using different manufacturers or methods may not be comparable.[facility] rn hospice and method:[employer] DXI, CHEMILUMINESCENT IMMUNO ASSAY.Prostate specific Ag [Mass/Vol]0.650 ng/mL0.000-4.000[facility] HospitalComment on above:Serial tumor marker results determined by assays using different manufacturers or methods may not be comparable.[facility] rn hospice and method:[employer] DXI, CHEMILUMINESCENT IMMUNO ASSAY.Protein [Mass/volume] in Serum or PlasmaOrdered By: Russell Gómez on 22-38-9045Vttotfi [Mass/Vol]Protein [Mass/volume] in Serum or PlasmaLow6.4-8.9 [facility] HospitalProtein [Mass/Vol]6.3 g/dLLow6.4-8.9[facility] HospitalComment on above:Performed By: #### LIPID, CHC CBC, EMP PSA, A1C WT eA, CMP #### [facility] [address] [place] [id number] USARBC Auto (Bld) [#/Vol]Ordered By: Russell Gómez on 11-30-2024 RBC (Bld) [#/Vol]Erythrocytes [#/volume] in Blood by Automated count3.90-5.60 [facility] Hospitalerum globulin measurement by calculation (mass/volume)Ordered By: Russell Gómez on 59-65-7996Sqpncezn (S) [Mass/Vol]2.0 g/dL [facility] SystemComment on above:Performed By: #### LIPID, CHC CBC, EMP PSA, A1C WTH eA, CMP #### [facility] [address] [place] [id number] USASerum or plasma albumin/globulin mass ratioOrdered By: Russell Gómez on 36-37-0959Xjigtnm/Globulin [Mass ratio]Serum or plasma albumin/globulin mass ratioParma Community General HospitalAlbumin/Globulin [Mass ratio]2.2 {ratio}[facility] Health SystemComment on above: Performed By: #### LIPID, CHC CBC, EMP PSA, A1C WT eA, CMP #### [facility] [address] [place] [address] USASerum or plasma anion gap determinationOrdered By: Russell Gómez on 19-43-2412Cryys gap [Moles/Vol]Serum or plasma anion gap determination 6.0-15.0[facility] HospitalAnion gap [Moles/Vol]7.7 mmol/LNormal 6.0-15.0[facility] HospitalComment on above:Performed By: #### LIPID, CHC CBC, EMP PSA, A1C WTH eA, CMP #### [facility] [address] [place] [address] USASerum or plasma total cholesterol/high density lipoprotein (HDL) cholesterol mass ratOrdered By: Russell Gómez on 11-30-2024 Cholesterol.total/Cholesterol in HDL [Mass ratio]Serum or plasma total cholesterol/high density lipoprotein (HDL) cholesterol mass rat<5.0[facility] HospitalCholesterol.total/Cholesterol in HDL [Mass ratio]2.9 {ratio}Normal<5.0[facility] HospitalComment on above:Result Comment: PERFORMED BY: [place] [address] PATHOLOGIST STOCK TRACER SUSAN FREGOSO M.D.Performed By: #### SCAN CBC, LDH, CMP #### [facility] [address] [place] [address] USASodium [Moles/volume] in Serum or PlasmaOrdered By: Russell Gómez on 83-28-5399Vfvmte [Moles/Vol]Sodium [Moles/volume] in Serum or Plasma 136-145Aultman Hospitalodium [Moles/Vol]142 mmol/LNormal 136-145[facility] HospitalComment on above:Performed By: #### LIPID, CHC CBC, EMP PSA, A1C WTH eA, CMP #### [facility] [address] [place] [id number] USATriglyceride [Mass/volume] in Serum or PlasmaOrdered By: Russell Gómez on 42-75-8738Zljvzswmkztj [Mass/Vol]Triglyceride [Mass/volume] in Serum or Plasma0-149[facility] HospitalComment on above:TRIG ATP III CLASSIFICATIONTRIG less than 150 mg/dL NormalTRIG 150-199 mg/dL Borderline highTRIG 200-500 mg/dL High TRIG greater than 500 mg/dL Very highStandard traceable to the Center for Disease Conrtrol and Prevention (CDC) test method. Triglyceride [Mass/Vol]86 mg/dL0-149[facility] HospitalComment on above:TRIG ATP III CLASSIFICATIONTRIG less than 150 mg/dL NormalTRIG 150-199 mg/dL Borderline highTRIG 200-500 mg/dL High TRIG greater than 500 mg/dL Very highStandard traceable to the Center for Disease Conrtrol and Prevention (CDC) test method.Urea nitrogen [Mass/volume] in Serum or PlasmaOrdered By: Russell Gómez on 15-45-9064Gsek nitrogen [Mass/Vol]Urea nitrogen [Mass/volume] in Serum or Plasma03-18[facility] HospitalUrea nitrogen [Mass/Vol]15 mg/dL Normal-[facility] HospitalComment on above:Performed By: #### LIPID, CHC CBC, EMP PSA, A1C WTH eA, CMP #### [facility] [address] [place] [address] USAWBC Auto (Bld) [#/Vol]Ordered By: Russell Gómez on 11-30-2024 WBC (Bld) [#/Vol]Leukocytes [#/volume] in Blood by Automated countHigh4.1-10.5 [facility] HospitalAlanine aminotransferase [Enzymatic activity/volume] in Serum or PlasmaOrdered By: Irene Solares on 70-75-8139HXJ [Catalytic activity/Vol]Alanine aminotransferase [Enzymatic activity/volume] in Serum or PlasmaParma Community General HospitalAlbumin [Mass/volume] in Serum or Plasma by Bromocresol green (BCG) dye binding methoOrdered By: Irene Solares on 53-94-4920Iiwmern BCG dye [Mass/Vol]Albumin [Mass/volume] in Serum or Plasma by Bromocresol green (BCG) dye binding metho3.5-5.7FWexner Medical CenterAlkaline phosphatase [Enzymatic activity/volume] in Serum or PlasmaOrdered By: Irene Solares on 19-76-5188CXR [Catalytic activity/Vol] Alkaline phosphatase [Enzymatic activity/volume] in Serum or Jgdpof40-747 [facility] HospitalAspartate aminotransferase [Enzymatic activity/volume] in Serum or PlasmaOrdered By: Irene Solares on 33-92-0049HED [Catalytic activity/Vol]Aspartate aminotransferase [Enzymatic activity/volume] in Serum or Rvxbdo03-46PyhehnsvtParma Community General HospitalBasophils Auto (Bld) [#/Vol]Ordered By: Irene Solares on 13-31-6372Xgmypboth (Bld) [#/Vol]Automated basophil count0.0-0.2FWexner Medical CenterBasophils/100 WBC Auto (Bld)Ordered By: Irene Solares on 28-25-1134Lvhsjomvl/100 WBC (Bld)Automated basophil %.[facility] HospitalBilirubin.total [Mass/volume] in Serum or PlasmaOrdered By: Irene Solares on 71-81-5050Nvvfgcugk [Mass/Vol] Bilirubin.total [Mass/volume] in Serum or PlasmaHigh0.3-1.0[facility] HospitalCalcium [Mass/volume] in Serum or PlasmaOrdered By: Irene Solares on 34-28-6611Hmxjugx [Mass/Vol]Calcium [Mass/volume] in Serum or Plasma8.6-10.3 [facility] HospitalCarbon dioxide, total [Moles/volume] in Serum or PlasmaOrdered By: Irene Solares on 81-25-5530OF1 [Moles/Vol]Carbon dioxide, total [Moles/volume] in Serum or DmrmxcVpad58.0-31.0[facility] HospitalChloride [Moles/volume] in Serum or PlasmaOrdered By: Irene Solares on 23-82-3974Qjqeheuq [Moles/Vol]Chloride [Moles/volume] in Serum or Ebeyks57-099 [facility] HospitalComprehensive Metabolic Panelon 11-12-2024 Albumin [Mass/Vol]4.4 g/dLNormal3.5-5.7The [facility] Physician GroupComment on above:Performed By: #### SCAN CBC, LDH, CMP #### [place] [address] USAAlbumin/Globulin [Mass ratio]2.3 {ratio}NormalThe [facility] Physician GroupComment on above:Performed By: #### SCAN CBC, LDH, CMP #### [facility] [address] [place] [address] USAALP [Catalytic activity/Vol]89 U/KAdztsl12-809Ocu [facility] Physician GroupComment on above:Performed By: #### SCAN CBC, LDH, CMP #### [facility] [address] [place] [address] USAALT [Catalytic activity/Vol]28 U/LNormal7-52The [facility] Physician GroupComment on above:Performed By: #### SCAN CBC, LDH, CMP #### [facility] [address] [place] [address] USAAnion gap [Moles/Vol]8.2 mmol/LNormal6.0-15.0The [facility] Physician GroupComment on above:Performed By: #### SCAN CBC, LDH, CMP #### [facility] [address] [place] [address] USAAST [Catalytic activity/Vol]27 U/SOnnufw82-35Djl [facility] Physician GroupComment on above:Performed By: #### SCAN CBC, LDH, CMP #### [facility] [address] [place] [address] USABilirubin [Mass/Vol]1.1 mg/dLHigh0.3-1.0The [facility] Physician GroupComment on above:Performed By: #### SCAN CBC, LDH, CMP #### [facility] [address] [place] [address] USACalcium [Mass/Vol]8.8 mg/dLNormal8.6-10.3The [facility] Physician GroupComment on above:Performed By: #### SCAN CBC, LDH, CMP #### [facility] [address] [place] [address] USAChloride [Moles/Vol]106 mmol/EBiphxn53-759Ecv [facility] Physician GroupComment on above:Performed By: #### SCAN CBC, LDH, CMP #### [facility] [address] [place] [address] USACO2 [Moles/Vol]31.9 mmol/LHigh21.0-31.0The [facility] Physician GroupComment on above:Performed By: #### SCAN CBC, LDH, CMP #### [facility] [address] [place] [address] USACreatinine [Mass/Vol]0.83 mg/dLNormal0.70-1.30The [facility] Physician GroupComment on above:Performed By: #### SCAN CBC, LDH, CMP #### [facility] [address] [place] [address] USACreatinine Clr Calc Vzmkuuid26.39NormHalifax Health Medical Center of [facility] Beach Physician GroupComment on above:Performed By: #### SCAN CBC, LDH, CMP #### [facility] [address] [place] [address] USAGFR/1.73 sq M.predicted MDRD (S/P/Bld) [Vol rate/Area] mL/min/{1.73_m2}NormalThe [facility] Physician GroupComment on above:Performed By: #### SCAN CBC, LDH, CMP #### [facility] [address] [place] [address] USAGlobulin (S) [Mass/Vol]1.9 g/dLNoCincinnati Shriners Hospitale [facility] Physician GroupComment on above:Performed By: #### SCAN CBC, LDH, CMP #### [facility] [address] [place] [address] USAGlucose [Mass/Vol]93 mg/tZXjbjpx90-370Fhf [facility] Physician GroupComment on above:Result Comment: Random Glucose Reference Range is dependent on time and content of last meal. Glucose of more than 200 mg/dL in a nonstressed, ambulatory subject supports the diagnosis of Diabetes Mellitus. ADA recommended reference rangePerformed By: #### SCAN CBC, LDH, CMP #### [facility] [address] [place] [address] USAPotassium [Moles/Vol]4.1 mmol/LNormal3.5-5.1The [facility] Physician GroupComment on above:Performed By: #### SCAN CBC, LDH, CMP #### [facility] [address] [place] [address] USAProtein [Mass/Vol]6.3 g/dLLow6.4-8.9The [facility] Physician GroupComment on above:Performed By: #### SCAN CBC, LDH, CMP #### [facility] [address] [place] [address] USASodium [Moles/Vol]142 mmol/OPkoxst652-292Mxp [facility] Physician [facility] State HospitalComment on above:Performed By: #### SCAN CBC, LDH, CMP #### [facility] [address] [place] [address] USAUrea nitrogen [Mass/Vol]17 mg/dLNormal7-e [facility] Physician GroupComment on above:Performed By: #### SCAN CBC, LDH, CMP #### [facility] [address] [place] [address] USACreatinine [Mass/volume] in Serum or PlasmaOrdered By: Irene Solares on 40-65-8070Ieuiibiejq [Mass/Vol]Creatinine [Mass/volume] in Serum or Plasma0.70-1.30[facility] HospitalEosinophils Auto (Bld) [#/Vol]Ordered By: Irene Solares on 53-97-0543Hwsroimcmlb (Bld) [#/Vol]Automated eosinophil count0.0-0.45[facility] HospitalEosinophils/100 WBC Auto (Bld)Ordered By: Irene Solares on 19-36-5737Cimalkurswl/100 WBC (Bld) Automated eosinophil %.[facility] HospitalErythrocyte distribution width Auto (RBC) [Ratio]Ordered By: Irene Solares on 70-40-6503Vffxsktxirw distribution width (RBC) [Ratio]Erythrocyte distribution width [Ratio] by Automated count12.0-14.8[facility] HospitalErythrocyte morphology finding [Identifier] in BloodOrdered By: Irene Solares on 80-68-3896MZK morphology finding Nom (Bld)RBC morphologyNormalParma Community General HospitalGlobulin Calc (S) [Mass/Vol]Ordered By: Irene Solares on 11-12-2024 Globulin (S) [Mass/Vol]Serum globulin measurement by calculation (mass/volume) [facility] HospitalGlucose [Mass/volume] in Serum or PlasmaOrdered By: Irene Solares on 58-95-5588Kjsekmf [Mass/Vol]Glucose [Mass/volume] in Serum or Urmnkp62-014UflyrdrsyParma Community General HospitalComment on above:ADA recommended reference rangeRandom Glucose Reference Range is dependent on time and content of last meal. Glucose of more than 200 mg/dL in a nonstressed, ambulatory subject supports the diagnosisof Diabetes Mellitus.Hematocrit Auto (Bld) [Volume fraction]Ordered By: Irene oSlares on 34-03-2899Kjgpxlotor (Bld) [Volume fraction]Hematocrit [Volume Fraction] of Blood by Automated count 38.8-50.0[facility] HospitalHemoglobin [Mass/volume] in Blood Ordered By: Irene Solares on 57-87-2599Vtwipmeosk (Bld) [Mass/Vol]Hemoglobin [Mass/volume] in Blood13.0-17.0[facility] HospitalLDH Lactate Dehydrogenaseon 43-50-2898YNI Lactate Okvpesiwukglt354 U/DBlfagb735-788Vza [facility] Physician GroupComment on above:Result Comment: PERFORMED BY: [place] [address] PATHOLOGIST STOCK TRACER SUSAN FREGOSO M.D.Performed By: #### SCAN CBC, LDH, CMP #### [place] [address] USALactate dehydrogenase [Enzymatic activity/volume] in Serum or Plasma by Lactate to pyOrdered By: Irene Solares on 48-18-3179RLK Lactate to pyruvate reaction [Catalytic activity/Vol]Lactate dehydrogenase [Enzymatic activity/volume] in Serum or Plasma by Lactate to ew053-370JylsximbpParma Community General HospitalLeukocytes [#/volume] corrected for nucleated erythrocytes in Blood by Automated counOrdered By: Irene Solares on 26-46-9964PQG corrected for nucl RBC Auto (Bld) [#/Vol]Leukocytes [#/volume] corrected for nucleated erythrocytes in Blood by Automated counHigh4.1-10.5FWexner Medical CenterLymphocytes Auto (Bld) [#/Vol]Ordered By: Irene Solares on 11-12-2024 Lymphocytes (Bld) [#/Vol]Lymphocytes [#/volume] in Blood by Automated countHigh 1.00-4.8[facility] HospitalLymphocytes/100 WBC Auto (Bld)Ordered By: Irene Solares on 00-31-9811Qiucwlpzeqz/100 WBC (Bld)Lymphocytes/100 leukocytes in Blood by Automated count.[facility] HospitalMCH Auto (RBC) [Entitic mass]Ordered By: Irene Solares on 93-83-5876LHD (RBC) [Entitic mass]MCH [Entitic mass] by Automated count27.5-35.2FWexner Medical CenterMCHC Auto (RBC) [Mass/Vol]Ordered By: Irene Solares on 21-30-9397TBFI (RBC) [Mass/Vol]MCHC [Mass/volume] by Automated count32.5-35.6FWexner Medical CenterMCV Auto (RBC) [Entitic vol]Ordered By: Irene Solares on 82-02-9395WVD (RBC) [Entitic vol]MCV [Entitic volume] by Automated count83.5-101 [facility] HospitalMonocytes Auto (Bld) [#/Vol]Ordered By: Irene Solares on 86-24-8553Ryfgmbtcx (Bld) [#/Vol]Automated blood monocyte count 0.0-0.8[facility] HospitalMonocytes/100 WBC Auto (Bld)Ordered By: Irene Solares on 31-46-9749Lqxfsztjq/100 WBC (Bld)Automated monocyte %.[facility] HospitalNeutrophils Auto (Bld) [#/Vol]Ordered By: Irene Solares on 83-54-5153Mktornchpvs (Bld) [#/Vol]Neutrophils [#/volume] in Blood by Automated count1.8-7.7FWexner Medical CenterNeutrophils/100 WBC Auto (Bld)Ordered By: Irene Solares on 38-80-7309Ihzywksmkoe/100 WBC (Bld)Automated neutrophil %.[facility] HospitalNo Panel InformationOrdered By: Irene Solares on 82-40-9989Qfzrjdewh GFR (CKD-EPI)> 60.0 mL/MinParma Community General HospitalPharmacy Creatinine Clearance (Chem97.39[facility] HospitalNucleated erythrocytes [Presence] in Blood by Automated countOrdered By: Irene Solares on 29-56-6372Gtkzgojpp RBC Auto Ql (Bld)Nucleated erythrocytes [Presence] in Blood by Automated count0-0.5FWexner Medical CenterPlatelet adequacy [Presence] in Blood by Light microscopyOrdered By: Irene Solares on 93-82-9285Kahvmltic LM Ql (Bld)Platelet adequacy [Presence] in Blood by Light microscopyNormGuernsey Memorial HospitalPlatelet mean volume Auto (Bld) [Entitic vol]Ordered By: Irene Solares on 11-12-2024 Platelet mean volume (Bld) [Entitic vol]Platelet mean volume [Entitic volume] in Blood by Automated count6.6-10.1FWexner Medical CenterPlatelet morphology finding [Identifier] in BloodOrdered By: Irene Solares on 11-12-2024 Platelet morphology finding Nom (Bld)Platelet morphology finding [Identifier] in BloodNoSelect Medical Specialty Hospital - Columbus SouthPlatelets Auto (Bld) [#/Vol]Ordered By: Irene Solares on 28-73-1004Xwkqseksq (Bld) [#/Vol]Platelets [#/volume] in Blood by Automated pohcjQcv220-430IzdspwwynParma Community General HospitalPotassium [Moles/volume] in Serum or PlasmaOrdered By: Irene Solares on 11-12-2024 Potassium [Moles/Vol]Potassium [Moles/volume] in Serum or Plasma3.5-5.1FWexner Medical CenterProtein [Mass/volume] in Serum or PlasmaOrdered By: Irene Solares on 21-91-1235Judkbgv [Mass/Vol]Protein [Mass/volume] in Serum or PlasmaLow6.4-8.9[facility] HospitalRBC Auto (Bld) [#/Vol]Ordered By: Irene Solares on 29-85-9374YCW (Bld) [#/Vol]Erythrocytes [#/volume] in Blood by Automated count3.90-5.60Aultman Hospitalcan and CBCon 21-27-9430Lojjgavad (Bld) [#/Vol]0.1 10*3/uLNormal0.0-0.2The [facility] Physician GroupComment on above:Performed By: #### SCAN CBC, LDH, CMP #### [place] [address] USABasophils/100 WBC (Bld)0.4 %Normal.The [facility] Physician GroupComment on above:Performed By: #### SCAN CBC, LDH, CMP #### [place] [address] USAEosinophils (Bld) [#/Vol]0.2 10*3/uLNormal0.0-0.45The [facility] Physician GroupComment on above:Performed By: #### SCAN CBC, LDH, CMP #### [place] [address] USAEosinophils/100 WBC (Bld)1.0 %Normal.The [facility] Physician GroupComment on above:Performed By: #### SCAN CBC, LDH, CMP #### [place] [address] USAErythrocyte distribution width (RBC) [Ratio]12.9 %Normal 12.0-14.8The [facility] Physician GroupComment on above:Performed By: #### SCAN CBC, LDH, CMP #### [place] [address] USAHematocrit (Bld) [Volume fraction]41.8 %Csndqg74.8-50.0The [facility] Physician GroupComment on above:Performed By: #### SCAN CBC, LDH, CMP #### [place] [address] USAHemoglobin (Bld) [Mass/Vol]14.7 g/wVOvadhe85.0-17.0The [facility] Physician GroupComment on above:Performed By: #### SCAN CBC, LDH, CMP #### [place] [address] USALymphocytes (Bld) [#/Vol]13.2 10*3/uLHigh1.00-4.8The [facility] Physician GroupComment on above:Performed By: #### SCAN CBC, LDH, CMP #### [place] [address] USALymphocytes/100 WBC (Bld)75.9 %Normal.The [facility] Physician GroupComment on above:Performed By: #### SCAN CBC, LDH, CMP #### [address]H (RBC) [Entitic mass]32.2 kvKbxooe67.5-35.2The [facility] Physician GroupComment on above:Performed By: #### SCAN CBC, LDH, CMP #### [place] [address] USAV (RBC) [Entitic vol]91.7 tNXqidpe15.5-101The [facility] Physician GroupComment on above:Performed By: #### SCAN CBC, LDH, CMP #### [place] [address] USAMean Corpuscular HGB Conc35.1 g/uRSbyhwe70.5-35.6The [facility] Physician GroupComment on above:Performed By: #### SCAN CBC, LDH, CMP #### [place] [address] USAMonocytes (Bld) [#/Vol]0.4 10*3/uLNormal0.0-0.8The [facility] Physician GroupComment on above:Performed By: #### SCAN CBC, LDH, CMP #### [place] [address] USAMonocytes/100 WBC (Bld)2.1 %Normal.The [facility] Physician GroupComment on above:Performed By: #### SCAN CBC, LDH, CMP #### [place] [address] USANeutrophils (Bld) [#/Vol]3.6 10*3/uLNormal1.8-7.7The [facility] Physician GroupComment on above:Performed By: #### SCAN CBC, LDH, CMP #### [place] [address] USANeutrophils/100 WBC (Bld)20.6 %Normal.The [facility] Physician GroupComment on above:Performed By: #### SCAN CBC, LDH, CMP #### [place] [address] USANRBC%0.2 /100{WBC}Normal0-0.5The [facility]ician Group Comment on above:Performed By: #### SCAN CBC, LDH, CMP #### [place] [address] USAPlatelet EstimateDecreasedNormalNoCritical access hospital Physician GroupComment on above:Performed By: #### SCAN CBC, LDH, CMP #### [place] [address] USAPlatelet mean volume (Bld) [Entitic vol]7.9 fLNormal 6.6-10.1The [facility] Physician GroupComment on above:Performed By: #### SCAN CBC, LDH, CMP #### [place] [address] USAPlatelet MorphologyNormalNormalHCA Florida Starke Emergency Physician GroupComment on above:Result Comment: PERFORMED BY: [place] [address] PATHOLOGIST STOCK TRACER SUSAN FREGOSO M.D.Performed By: #### SCAN CBC, LDH, CMP #### [place] [address] USAPlatelets (Bld) [#/Vol]136 10*3/nXPcj825-582Gkx [facility] Physician GroupComment on above:Performed By: #### SCAN CBC, LDH, CMP #### [place] [address] USARBC (Bld) [#/Vol]4.56 10*6/uLNormal3.90-5.60The [facility] Physician GroupComment on above:Performed By: #### SCAN CBC, LDH, CMP #### [place] [address] USARBC morphology finding Nom (Bld)NormalNormalNormHalifax Health Medical Center of Daytona Beach Physician GroupComment on above:Performed By: #### SCAN CBC, LDH, CMP #### [facility] [address] [place] [address] USAWBC (Bld) [#/Vol]17.4 10*3/uLHigh4.1-10.5The [facility] Physician GroupComment on above:Performed By: #### SCAN CBC, LDH, CMP #### [facility] [address] [place] [id number] USASerum or plasma albumin/globulin mass ratioOrdered By: Irene Solares on 32-16-1243Whkrkhf/Globulin [Mass ratio]Serum or plasma albumin/globulin mass ratioAultman Hospitalerum or plasma anion gap determinationOrdered By: Irene Solares on 34-42-7548Kzeno gap [Moles/Vol]Serum or plasma anion gap determination6.0-15.0Aultman Hospitalodium [Moles/volume] in Serum or PlasmaOrdered By: Irene Solares on 72-88-6425Guktdh [Moles/Vol]Sodium [Moles/volume] in Serum or Yrfqww752-285 [facility] HospitalUrea nitrogen [Mass/volume] in Serum or Plasma Ordered By: Irene Solares on 66-11-7994Hyow nitrogen [Mass/Vol]Urea nitrogen [Mass/volume] in Serum or Plasma7-25[facility] HospitalWBC Auto (Bld) [#/Vol]Ordered By: Irene Solares on 87-68-3161RPJ (Bld) [#/Vol]Leukocytes [#/volume] in Blood by Automated countHigh4.1-10.5FWexner Medical CenterXR Hand - left 3 Viewson 82-43-2763Ljupfiz Result: Three views of the left hand(s), PA/lateral/oblique, taken today and saved to the permanent medical record. Fracture distal phalanx middle finger well healed with advanced DIP joint arthritis.[facility]XR Knee - right 3 Viewson 17-67-5159Nkgrvtm Result: Three views, bilateral PA weight-bearing, sunrise, lateral of the right knee(s) taken today and saved to the permanent medical record are reviewed. Mild medial compartment joint space narrowing. No acute osseous abnormalities.[facility] Panel Informationon 09-30-2024 Aracely De León, ARRT 10/02/2024 9:51 PM L Inj/Asp: R knee on 09/30/2024 4:29 PM Indications: pain Details: 25 G needle, lateral approach Medications: 1.5 mg betamethasone acetate-betamethasone sodium phosphate 6 (3-3) MG/ML Consent was given by the patient. [facility]XR Hand - left 3 Viewson 20-77-6600Ahwkczght Study observation (narrative)[facility]XR Knee - right 3 Viewson 09-30-2024 Radiology Study observation (narrative)[facility]Pointe HospitalCNOVon [id number] Office Visit (CARDAV) DARIUS VALERA ([id number]) 1960 M Date Time Provider Department 09/21/24 4:30 PM TONY ARMSTRONG During your visit today, we recorded the following information about you: Blood pressure Weight Height 142/82 93 kg 1.829 m Tony Armstrong PA-C 09/21/2024 5:03 PM Signed [facility] [place] Sissy Zepeda Department of Cardiovascular Medicine SECTION [...] rare (<1.0%). Isolated VEs were occasional (1.4%, [address]), VE Couplets were rare (<1.0%, 56), and [...] months CONTACT INFORMATION: Tony Armstrong PA-C Cardiology [id number] [facility] [address] Dept: [phone] Dept Tony Armstrong PA-C 09/21/2024 4:57 PM Signed Please schedule appt with Dr. Tuttle in 6 months Referring Provider: ITA TUTTLE [[id number]] Allergies As of Date: 09/21/2024 (No Known Allergies) Date Reviewed: 09/21/2024 Reviewed by: Donte Iraheta II, RN - Fully Assessed Reason for Visit: Follow Up [171] Primary V (more content not included)...NormalChillicothe HospitalMR HAND LEFT WO IV CONTRASTon [id number] HAND LEFT WO IV CONTRASTEXAM/TECHNIQUEMR HAND LEFT [...] MRI QuestionsCBC W Auto Differential panel (Bld)on 94-90-1109Ukgrnuhus (Bld) [#/Vol]0.1 10*3/uLNOMS HealthcareBasophils/100 WBC (Bld)0 %Not Estab.NOMS HealthcareEosinophils (Bld) [#/Vol]0.2 10*3/uLNOMS HealthcareEosinophils/100 WBC (Bld)1 %Not Estab.[facility] HealthcareErythrocyte distribution width (RBC) [Ratio]12.7 %11.6 - 15.4 %NOM HealthcareHematocrit (Bld) [Volume fraction]44.5 %37.5 - 51.0 %[facility] HealthcareHemoglobin (Bld) [Mass/Vol]15.1 g/dL13.0 - 17.7 g/dLSouthPointe HospitalImmature granulocytes (Bld) [#/Vol]0 10*3/uLNOMS HealthcareImmature granulocytes/100 WBC (Bld)0 %Not Estab. NOMS HealthcareLymphocytes (Bld) [#/Vol]12.7 10*3/uLHighNOMS Healthcare Lymphocytes/100 WBC (Bld)70 %Not Estab.[facility]Po[facility] HospitalMCH (RBC) [Entitic mass] 31.1 pg26.6 - 33.0 pgNOCox NorthMCHC (RBC) [Mass/Vol]33.9 g/dL31.5 - 35.7 g/dLSaint Louis University Health Science CenterV (RBC) [Entitic vol]92 fL79 - 97 fLNOME Healthcare Monocytes (Bld) [#/Vol]0.6 10*3/uLNOMS HealthcareMonocytes/100 WBC [...] [Mass/Vol]1.9 g/dL1.5 - 4.5 g/dLNOMS HealthcareGlucose [Mass/Vol]100 mg/xFYwsw44 - 99 mg/dLNOMS HealthcarePotassium [Moles/Vol]4 mmol/L 3.5 - 5.2 mmol/LNOMS HealthcareProtein [Mass/Vol]6.4 g/dL6.0 - 8.5 g/dLNOMS HealthcareSodium [Moles/Vol]139 mmol/L134 - 144 mmol/LNOMS HealthcareUrea nitrogen [Mass/Vol]20 mg/dL8 - 27 mg/dLNOMS HealthcareUrea nitrogen/Creatinine [Mass ratio]21 mg/mg10 - 24NOME HealthcareLactate dehydrogenaseon 84-85-1502IKT Lactate to pyruvate reaction [Catalytic activity/Vol]261HighSouthPointe HospitalNo Panel Informationon 98-95-4001Oofghwlxbgyjur and review of laboratory results AbnormalNOME HealthcarePerformed at: [address] [id number] Architectural Representative: Chad Mccall PhD, Phone: [phone] Community Hospital Specimen Status Reporton 71-49-6162Dhsdwqeesoz Disk diffusion (KB) [[facility]]Comment NOMS HealthcareComment on above:[place] Lock CMP14 Default [place] Lock CMP14 Default A hand-written panel/profile was received from your office. In accordance with the [facility] Ambiguous Test Code Policy dated February 2003, we have completed your order by using the closest currently or formerly recognized AMA panel. We have assigned Comprehensive Metabolic Panel (14), Test Code #093339 to this request. If this is not the testing you wished to receive on this specimen, please contact the [facility] Client Inquiry/Technical Services Department to clarify the test order. We appreciate your business. XR ORBITS 1 TO 3 VIEWSon 42-62-8911YH ORBITS 1 TO 3 VIEWSXR ORBITS 1 TO 3 VIEWS/MRI CLEARANCE Reason for exam: MRI screening Prior comparative studies: None Findings: Screening Orbits: No radiopaque foreign bodies are seen to overlie the orbits on either side. Metallic dental appliance is noted.NormalNot AvailableXR finger LT 3rd digiton 97-16-9708LN finger LT 3rd digitMERCY HEALTH [place] [address] XRay Report Signed Patient: Darius Valera MR#: [id number] : 1960 Acct:[id number] Age/Sex: 63 / M ADM Date: 07/24/24 Loc: XDUCLY Room: Type: [facility] Attending Dr: Hannah Queen MIX MAKER Copies to: Hannah Queen APRN Ordering Provider: [...] Donte Quevedo M.D.07/24/2024 11:26 AM Dictation Location: [place] [address] Transcribed By: [facility] 07/24/24 1126 Dictated By: Donte Quevedo II, MD 07/24/24 1124 Signed By: 07/24/[address] [place] [address] Physician GroupXR THORACIC SPINE 3Von 11-93-8571[place] [address] XRay Report Signed Patient: DARIUS VALERA MR#: [id number] : 1960 Acct:[id number] Age/Sex: 63 / M ADM Date: 06/28/24 Loc: RAD Attending Dr: LINDA JANSEN Ordering Physician: LINDA JANSEN Date of Service: 06/28/24 Procedure(s): XR thoracic spine 3V Accession Number(s): [id number] cc: LINDA JANSEN [place] [id number] Patient Name: DARIUS VALERA MRN: [id number] date: 1960 Sex: M Assigned Patient Location: RAD Current Patient Location: Accession/Order Number: [id number] Exam Date: 06/28/2024 17:55 Report Date: 06/29/2024 [...] Signed By: 06/29/24 1503 DD/ 1501 TD/TT: Rn School:TBHRadiology, Radiologist, - 06/29/2024 [place] [address] XRay Report Signed Patient: DARIUS VALERA MR#: [id number] : 1960 Acct:[id number] Age/Sex: 63 / M ADM Date: 06/28/24 Loc: RAD Attending Dr: LINDA JANSEN Ordering Physician: LINDA JANSEN Date of Service: 06/28/24 Procedure(s): XR thoracic spine 3V Accession Number(s): [id number] cc: LINDA JANSEN [place] [id number] Patient Name: DARIUS VALERA MRN: [id number] date: 1960 Sex: M Assigned Patient Location: RAD Current Patient Location: Accession/Order Number: [id number] Exam Date: 06/28/2024 17:55 Report Date: 06/29/2024 [...] Signed By: 06/29/24 1503 DD/ 1501 TD/TT: Rn [facility] Study observation (narrative)[facility] HospitalXR THORACIC SPINE 3VOrdered By: Radiologist Radiology on 87-07-1027LZRY Healthcare Work Phone: VITAMIN D 25 HYDROXY,TOT+D2+D3on 62-13-5439QVR REINA VITAMIN D 25 OH53 ng/mL.[facility] HospitalComment on above:Reference Range: All Ages: Target levels 30 - 100 VITAMIN D-2<1.0.[facility] Medina MedicalComment on above:This test was developed and its performance characteristics determined by [employer]. It has not been cleared or approved by the Food and Drug Administration. VITAMIN D-352 ng/mL.[facility] Medina MedicalComment on above:This test was developed and its performance characteristics determined by [employer]. It has not been cleared or approved by the Food and Drug Administration. Performed at: [facility] [address] [place] [id number] Architectural Representative: Johnnie Jansen MD, Phone: [phone] [facility] HealthcareFerritin [Mass/volume] in Serum or PlasmaOrdered By: Irene Solares on 79-36-6369Sjkcuoxg [Mass/Vol]Ferritin [Mass/volume] in Serum or Gctbgt76.9-336.2FWexner Medical CenterFerritin [Mass/Vol]63.9 ng/mL 23.9-336.2FWexner Medical CenterFolate [Mass/volume] in Serum or PlasmaOrdered By: Irene Solares on 23-52-4190Mbykka [Mass/Vol]Folate [Mass/volume] in Serum or Plasma>5.9[facility] Medical CenterComment on above:Folate reference range: >5.9 ng/mlThe WHO technical consultation on folate and vitamin y06qfaubglmtrbt has determined that folate concentrations lessthan 4 ng/ml are considered deficient.Folate [Mass/Vol]16.9 ng/mL>5.9[facility] HospitalComment on above:Folate reference range: >5.9 ng/mlThe WHO technical consultation on folate and vitamin e09egmcgfahcoyq has determined that folate concentrations lessthan 4 ng/ml are considered deficient.Iron [Mass/volume] in Serum or PlasmaOrdered By: Irene Solares on 07-91-6504Cgtf [Mass/Vol]Iron [Mass/volume] in Serum or Bnxphc30-220UojuukxxmParma Community General HospitalIron [Mass/Vol]83 ug/xF98-273JztadgbxpAultman Hospitalerum or plasma 25-hydroxycalciferol measurement (mass/volume)Ordered By: Irene Solares on 930700-vhsicvlxwxuggc D2 [Mass/Vol]Serum or plasma 25-hydroxycalciferol measurement (mass/volume).[facility] HospitalComment on above: This test was developed and its performance characteristicsdetermined by [employer]. It has not been cleared or approvedby the Food and Drug Administration. 25-hydroxyvitamin D2 [Mass/Vol]<1.0 ng/mL.[facility] Comment on above:This test was developed and its performance characteristicsdetermined by [employer]. It has not been cleared or approvedby the Food and Drug Administration.Serum or plasma 25-hydroxyvitamin D measurement (mass/volume)Ordered By: Irene Solares on 866612-xkipvcxiexzesc D [Mass/Vol]Serum or plasma 25-hydroxyvitamin D measurement (mass/volume). [facility] HospitalComment on above:Reference Range:All Ages: Target levels 30 - [address]-gqjmsehucdittx D [Mass/Vol]53 ng/mL.[facility] HospitalComment on above:Reference Range:All Ages: Target levels 30 - 100 Serum or plasma calcidiol measurement (mass/volume)Ordered By: Irene Solares on 001006-ympdktarzccaud D3 [Mass/Vol]Serum or plasma calcidiol measurement (mass/volume).[facility] HospitalComment on above:This test was developed and its performance characteristicsdetermined by [employer]. It has not been cleared or approvedby the Food and Drug Administration.Performed at: [facility] [address] [place], [place] [id number] Director: Johnnie Jansen MD, Phone: [phone]-zssvzeerladaro D3 [Mass/Vol]52 ng/mL. [facility] HospitalComment on above:This test was developed and its performance characteristicsdetermined by [employer]. It has not been cleared or approvedby the Food and Drug Administration.Performed at: [facility] [address] [place], [place] [id number] Director: Johnnie Jansen MD, Phone: [phone] or plasma iron binding capacity measurement (mass/volume) Ordered By: Irene Solares on 61-09-4250Vmjn binding capacity [Mass/Vol]Iron binding capacity [Mass/volume] in Serum or Ihuawv418-599FtyrufhbgParma Community General HospitalIron binding capacity [Mass/Vol]304 ug/sJ051-945Fifhbufbh00 Mueller Streeterum or plasma iron saturation measurement (mass fraction) Ordered By: Irene Solares on 32-06-0557Gzxc saturation [Mass fraction]Iron saturation [Mass Fraction] in Serum or Gceblm53-81LbwbkjjlcParma Community General HospitalIron saturation [Mass fraction]27.3 %20-50[facility] HospitalTransferrin [Mass/volume] in Serum or PlasmaOrdered By: Irene Solares on 04-53-4375Kycgputlfmv [Mass/Vol]Transferrin [Mass/volume] in Serum or Plasma 203-362Par[facility] HospitalTransferrin [Mass/Vol]217 mg/lB810-037 [facility] HospitalVitamin B12 ser/plasOrdered By: Irene Solares on 27-08-8180Hfzfbdhoy (Vitamin B12) [Mass/Vol]Vitamin B12 ser/aukx725-838 [facility] HospitalCobalamin (Vitamin B12) [Mass/Vol]554 pg/mL 180-[facility] HospitalAlanine aminotransferase [Enzymatic activity/volume] in Serum or PlasmaOrdered By: Christian Carlos on 04-20-2024 ALT [Catalytic activity/Vol]30 U/L7-[facility] HospitalAlbumin [Mass/volume] in Serum or Plasma by Bromocresol green (BCG) dye binding metho Ordered By: Christian Carlos on 08-89-6336Caclefz BCG dye [Mass/Vol]4.1 g/dL 3.5-5.7FWexner Medical CenterAlkaline phosphatase [Enzymatic activity/volume] in Serum or PlasmaOrdered By: Christian Carlos on 04-20-2024 ALP [Catalytic activity/Vol]79 U/Z39-523UeiulnoecParma Community General Hospital Anisocytosis LM Ql (Bld)Ordered By: Christian Carlos on 09-45-8744Wckjhijiwekz Ql (Bld)SlightParma Community General HospitalAnisocytosis Ql (Bld)Anisocytosis [Presence] in Blood by Light microscopyParma Community General Hospital Aspartate aminotransferase [Enzymatic activity/volume] in Serum or PlasmaOrdered By: Christian Carlos on 48-45-9241WEF [Catalytic activity/Vol]29 U/L13-39 [facility] HospitalBasophils Auto (Bld) [#/Vol]Ordered By: Christian Carlos on 59-79-5071Mmpzefaef (Bld) [#/Vol]0.0 10*3/uL0.0-0.2FWexner Medical CenterBasophils/100 WBC Auto (Bld)Ordered By: Christian Carlos on 69-40-8751Flwkrnelj/100 WBC (Bld)0.3 %.[facility] Bilirubin.total [Mass/volume] in Serum or PlasmaOrdered By: Christian Carlos on 63-90-3245Tgzyaapji [Mass/Vol]1.0 mg/dL0.3-1.0[facility] Calcium [Mass/volume] in Serum or PlasmaOrdered By: Christian Carlos on 26-69-6048Nsjubmw [Mass/Vol]8.8 mg/dL8.6-10.3FWexner Medical Center Carbon dioxide, total [Moles/volume] in Serum or PlasmaOrdered By: Christian Carlos on 75-80-4410UT2 [Moles/Vol]31.5 mmol/LHigh21.0-31.0[facility] HospitalChloride [Moles/volume] in Serum or PlasmaOrdered By: Christian Carlos on 24-27-2795Qqkudjwb [Moles/Vol]105 mmol/W27-828EyffljgwyParma Community General HospitalComprehensive metabolic panelon 95-21-8321Ftvutir [Mass/Vol]4.1 g/dL3.5 - 5.7 g/dLNOME HealthcareAlbumin/Globulin [Mass ratio]2.2 {ratio}NOMS HealthcareALP [Catalytic activity/Vol]79 U/L34 - 104 U/LNOMS HealthcareALT [Catalytic activity/Vol]30 U/L7 - 52 U/LNOMS HealthcareAnion gap [Moles/Vol]9.3 mmol/L6.0 - 15.0NOMS HealthcareAST [Catalytic activity/Vol]29 U/L13 - 39 U/LNOMS HealthcareBilirubin [Mass/Vol]1.0 mg/dL0.3 - 1.0 mg/dLNOME HealthcareCalcium [Mass/Vol]8.8 mg/dL8.6 - 10.3 mg/dLNOME HealthcareChloride [Moles/Vol]105 mmol/L 98 - 107 mmol/LNOMS HealthcareCO2 [Moles/Vol]31.5 mmol/LHigh21.0 - 31.0 mmol/L [facility] HealthcareCreatinine (U) [Mass/Vol]0.90 mg/dL0.70 - 1.30 mg/dLNOME HealthcareCREATININE CLR CALC HFFBTLCW95.01NOMS HealthcareGFR/1.73 sq M.predicted MDRD (S/P/Bld) [Vol rate/Area]mL/min/{1.73_m2}[facility] Healthcare Globulin (S) [Mass/Vol]1.9 g/dLNOMS HealthcareGlucose [Mass/Vol]95 mg/dL70 - 100 mg/dLNOME HealthcareComment on above:Random Glucose Reference Range is [...] By: Christian Carlos on 04-20-2024 Creatinine [Mass/Vol]0.90 mg/dL0.70-1.30[facility] Eosinophils Auto (Bld) [#/Vol]Ordered By: Christian Carlos on 04-20-2024 Eosinophils (Bld) [#/Vol]0.2 10*3/uL0.0-0.45[facility] Eosinophils/100 WBC Auto (Bld)Ordered By: Christian Carlos on 04-20-2024 Eosinophils/100 WBC (Bld)1.4 %.[facility] HospitalErythrocyte distribution width Auto (RBC) [Ratio]Ordered By: Christian Carlos on 04-20-2024 Erythrocyte distribution width (RBC) [Ratio]13.9 %12.0-14.8[facility] HospitalGlobulin Calc (S) [Mass/Vol]Ordered By: Christian Carlos on 50-45-1622Yajdbbgq (S) [Mass/Vol]1.9 g/dLParma Community General Hospital Glucose [Mass/volume] in Serum or PlasmaOrdered By: Christian Carlos on 84-04-3655Fpskboz [Mass/Vol]95 mg/vQ12-231JtqabffhgParma Community General Hospital Comment on above:ADA recommended reference rangeRandom Glucose Reference Range is dependent on time and content of last meal. Glucose of more than 200 mg/dL in a nonstressed, ambulatory subject supports the diagnosisof Diabetes Mellitus. Hematocrit Auto (Bld) [Volume fraction]Ordered By: Christian Carlos on 86-51-0280Bsqcqvgmoo (Bld) [Volume fraction]43.3 %38.8-50.0[facility] HospitalHemoglobin [Mass/volume] in BloodOrdered By: Christian Carlos on 21-30-1861Ixmncwlfru (Bld) [Mass/Vol]14.8 g/dL13.0-17.0[facility] HospitalLDH Lactate to pyruvate reaction [Catalytic activity/Vol]on 33-22-8435GAH LACTATE XHRXCPDKZMDSC909 U/L140 - 271 U/LNOMS HealthcareLactate dehydrogenase [Enzymatic activity/volume] in Serum or Plasma by Lactate to py Ordered By: Christian Carlos on 44-30-2806YPM Lactate to pyruvate reaction [Catalytic activity/Vol]212 U/C287-103NauzryryyParma Community General Hospital Leukocytes [#/volume] corrected for nucleated erythrocytes in Blood by Automated counOrdered By: Christian Carlos on 34-34-4795WOC corrected for nucl RBC Auto (Bld) [#/Vol]13.3 10*3/uLHigh4.1-10.5FWexner Medical Center Lymphocytes Auto (Bld) [#/Vol]Ordered By: Christian Calros on 04-20-2024 Lymphocytes (Bld) [#/Vol]9.9 10*3/uLHigh1.00-4.8[facility] HospitalLymphocytes/100 WBC Auto (Bld)Ordered By: Christian Carlos on 04-20-2024 Lymphocytes/100 WBC (Bld)74.8 %.[facility] Auto (RBC) [Entitic mass]Ordered By: Christian Carlos on 89-06-2848SLJ (RBC) [Entitic mass]31.2 pg27.5-35.2FSelect Medical Specialty Hospital - AkronHC Auto (RBC) [Mass/Vol] Ordered By: Christian Carlos on 64-63-8800JBJC (RBC) [Mass/Vol]34.2 g/dL 32.5-35.6FSelect Medical Specialty Hospital - AkronV Auto (RBC) [Entitic vol]Ordered By: Christian Carlos on 78-57-2984NQP (RBC) [Entitic vol]91.4 fL83.5-101 [facility] HospitalMicrocytes LM Ql (Bld)Ordered By: Christian Carlos on 60-35-9290Hbzfgcpkul Ql (Bld)SlightParma Community General HospitalMicrocytes Ql (Bld)Microcytes [Presence] in Blood by Light microscopy [facility] CenterMonocytes Auto (Bld) [#/Vol]Ordered By: Christian Carlos on 43-61-1712Mopdwvygv (Bld) [#/Vol]0.5 10*3/uL0.0-0.8[facility] HospitalMonocytes/100 WBC Auto (Bld)Ordered By: Christian Carlos on 20-74-5374Yncvlkrpw/100 WBC (Bld)3.7 %.[facility] Neutrophils Auto (Bld) [#/Vol]Ordered By: Christian Carlos on 04-20-2024 Neutrophils (Bld) [#/Vol]2.6 10*3/uL1.8-7.7FWexner Medical Center Neutrophils/100 WBC Auto (Bld)Ordered By: Christian Carlos on 04-20-2024 Neutrophils/100 WBC (Bld)19.8 %.[facility] HospitalNo Panel Informationon 89-67-8778JYPDSouthPointe HospitalNo Panel InformationOrdered By: Christian Carlos on 12-30-5339Dmijjsqux GFR (CKD-EPI)> 60.0 mL/MinParma Community General HospitalPhaacy Creatinine Clearance (Chem91.01[facility] HospitalNucleated erythrocytes [Presence] in Blood by Automated countOrdered By: Christian Carlos on 94-00-5353Zrlqgirgk RBC Auto Ql (Bld)0.3 /100{WBC}0-0.5 [facility] HospitalPlatelet adequacy [Presence] in Blood by Light microscopyOrdered By: Christian Carlos on 76-45-3719Bwvhzvkjc LM Ql (Bld) DecreasedNormGuernsey Memorial HospitalPlatelet mean volume Auto (Bld) [Entitic vol]Ordered By: Christian Carlos on 21-38-0049Eswsgzoz mean volume (Bld) [Entitic vol]8.5 fL6.6-10.1FWexner Medical CenterPlatelet morphology finding [Identifier] in BloodOrdered By: Christian Carlos on 84-93-1591Pphfhxhf morphology finding Nom (Bld)NormalNormGuernsey Memorial HospitalPlatelets Auto (Bld) [#/Vol]Ordered By: Christian Carlos on 72-58-9071Jowzoxeat (Bld) [#/Vol]108 10*3/fTRap541-052PlqwonxjoParma Community General HospitalPotassium [Moles/volume] in Serum or PlasmaOrdered By: Christian Carlos on 24-24-3829Askdywyeh [Moles/Vol]3.8 mmol/L3.5-5.1FWexner Medical CenterProtein [Mass/volume] in Serum or PlasmaOrdered By: Christian Carlos on 64-18-9498Dfwjldl [Mass/Vol]6.0 g/dLLow6.4-8.9[facility] RBC Auto (Bld) [#/Vol]Ordered By: Christian Carlos on 86-08-6620IFB (Bld) [#/Vol]4.74 10*6/uL3.90-5.60[facility] HospitalRBC morphology Ordered By: Christian Carlos on 10-06-3777SNM morphology finding Nom (Bld)N/A [facility]ult[facility] Hospitalerum or plasma albumin/globulin mass ratio Ordered By: Christian Carlos on 41-34-2476Ieyqxri/Globulin [Mass ratio]2.2 {ratio}[facility] Hospitalerum or plasma anion gap determination Ordered By: Christian Carlos on 90-38-3692Wfidt gap [Moles/Vol]9.3 mmol/L 6.0-15.0[facility]ult[facility] Hospitalodium [Moles/volume] in Serum or PlasmaOrdered By: Christian Carlos on 86-72-5530Ziqmqi [Moles/Vol]142 mmol/L 136-145[facility] HospitalUrea nitrogen [Mass/volume] in Serum or PlasmaOrdered By: Christian Carlos on 01-33-8117Uhau nitrogen [Mass/Vol]20 mg/dL7-25[facility] HospitalWBC Auto (Bld) [#/Vol]Ordered By: Christian Carlos on 00-62-5356LLE (Bld) [#/Vol]13.3 10*3/uLHigh4.1-10.5 [facility] HospitalNo Panel InformationOrdered By: Christian Carlos on 34-57-3995ITY CommentSee commentParma Community General Hospital Comment on above:Slide referred to pathologist for reviewSmudge cell detection Ordered By: Christian Carlos on 69-42-6384Zwarey cells LM Ql (Bld)[facility]lower Hospitalmudge cells [Presence] in Blood by Light microscopyOrdered By: Christian Carlos on 24-84-1928Zvpanh cells LM Ql (Bld) Smudge cell detectionParma Community General HospitalConsultation Noteon 20-28-8488Fpkicgvxuofq [id number]#1.00TIFF [facility] HospitalComment on above:Other Comment: FILING ERROR CRRECG COMPLETEon 75-50-5134Erkren Rate71 BPMCleKettering Health SpringfieldCalculated P Axis12 degreesCleacmc healthcare system ClinicCalculated R Wheeling-15 degreesCleacmc healthcare system ClinicCalculated T Axis28 degreesCleKettering Health SpringfieldP-R Inmdtnlm076 msCleveland ClinicQRS Uuejjdix79 msCleveland ClinicQT Bjaqnynr158 msCleveland ClinicQTC Calculation (Caro)439 msCleveland ClinicVentricular Rate71 BPMFlower Hospital for Release of Medical Recordson 27-71-1645Srzt for Release of Medical Records [id number]#1.00TIFMercy Health St[address] Charles HospitalLab Reportson 85-42-9813Nng Reports [id number]#1.00[facility] Hospitalcreenson 45-41-9998Izyhmde [id number]#1.00[facility] HospitalAmbulatory Visit Summaryon 87-45-6040Npnrugqlst Visit Summary SOTO DARIUS Giles :1960 Visit Date:06/02/2023 Ambulatory Visit Instructions Your Diagnosis Ureteral stone with hydronephrosis Erectile dysfunction Tests Performed Urnls Dip Stick Auto w/o Microscopy POC 15465 Your Care Team Attending Physician - Iesha Gamino MD This Is Your Medications List amlodipine aspirin (aspirin 81 mg oral tablet) atenolol (atenolol 100 mg Tab) hydrochlorothiazide-lisinopril (hydrochlorothiazide-lisinopril 12.5 mg-20 mg Tab) omega-3 polyunsaturated fatty acids ([place]-3) potassium chloride (Klor-Con) Discharge Vitals Heart Rate [...] Every day Unchanged omega-3 polyunsaturated fatty acids ([place]-3) Unchanged potassium chloride (Klor-Con) Test Results Urnls Dip Stick Auto w/o Microscopy POC 82000 (06/02/2023) Bilirubin Urine Dipstick - Negative Blood Urine Dipstick - Trace-intact Glucose Urine Dipstick - Negative Ketones Urine Dipstick - Negative Leukocytes Urine Dipstick - Negative Nitrite Urine Dipstick - Negative Protein Urine Dipstick - Negative Specific [place] Urine Dipstick - 1.015 Urine Appearance Urine [...] apnea Ureteral stone Ureteral stone with hydronephrosis [facility] Educationon 06-02-2023 Patient EducationUrology Erectile Dysfunction [...] these instructions at home: Medicines ? Take wxnn-snj-otuysfu and prescription medicines only as told by [...] These products include cig (more content not included)...[facility] Urology Office/Clinic Noteon 41-49-3395Tngdvwm Office/Clinic NoteChief Complaint follow up to [facility]/consult HPI Staff 62 year old male seen at [facility] consult for Lt. UVJ stone,hydro,renal colic, [...] by PCP Denies medical issues, hx of ME, stroke or DM2. On ASA 81mg Portions of this record may have been created with voice recognition artificial intelligence software, specifically [employer], [employer] and or [employer]. Substitutions may have occurred due to the inherent limitations of voice recognition and artificial intelligence software. 1. Ureteral stone with hydronephrosis (N13.2: Hydronephrosis with renal and ureteral calculous obstruction) Last stone event 10 years ago, denies surgical intervention. Pt presented to [facility] ER 04/14/23 with uncontrolled left flank [...] oxalate intake fro (more content not included)...Normal [facility] ClinicComment on above:Result Comment: Electronically Signed By: Iesha Gamino MD\.br\Date and Time Signed: 06/02/23 17:30 EDT\.br\Electronically Co-Signed By: Patience Castellon\.br\Date and Time Co- Signed: 06/02/23 16:04 EDTRAD - Ultrasound Reporton 88-73-9622MJN - Ultrasound [id number]#1.00CD:[address] [place], [place] [address]Consultation Noteon 73-52-9504Jgvhratqnrjn Note [id number]#1.00CD:[address] [place], [place] [address]Insurance Correspondence Officeon 24-00-3881Ggnfxwqcu Correspondence [id number]#1.00CD:[address] [place], [place] [address]Lab Reportson 40-34-3273Aqu Reports [id number]#1.00CD:[address] [place], [place] [address]Consultation Noteon 26-30-6930Npdceajykrdo Note [id number]#1.00CD:[address] [place], [place] [address]Operative Reporton 91-11-2635Vaprbkbjf Report [id number]#1.00CD:[address] [place], [place] [address]RAD - MISCon 16-83-8279PVZ - MISC [id number]#1.00CD:[address] [place], [place] [address]RAD - Ultrasound Reporton 86-97-6272MOZ - Ultrasound Report [id number]#1.00CD:127[facility] HospitalRAD - CT Reporton 76-22-3617RHN - CT Report [id number]#1.00CD:127[facility] HospitalConsultation Noteon 78-36-9198Holkqjpxrvgx Note [id number]#1.00CD:127[facility] HospitalMRI ANKLE RT WO CONon 83-54-1256ODB ANKLE RT WO CONEXAM: MRI ANKLE RT [...] Electronically authenticated by: JANAY PANDYA Date: 2023-01-22 07:[address] [place] [address] AUTO DIFFon 06-21-2745XAAY #0.0 103/ulNormal0.0-0.1The [facility] HospitalComment on above:Performed By: #### CBC #### [facility] [address] [place] [address] Dr. Yilan ChangBasophils/100 WBC (Bld)0.4 %Normal0.2-2.0The [facility] Comment on above:Performed By: #### CBC #### [facility] [address] [place] [address] Dr. Gautam Lowe #0.1 103/ulNormal0.0-0.7The [facility] HospitalComment on above: Performed By: #### CBC #### [facility] [address] [place] [address] Dr. Gautam Gonzalezosinophils/100 WBC (Bld)1.3 %Normal0.9-7.0The [facility] Comment on above:Performed By: #### CBC #### [facility] [address] [place] [address] Dr. Gautam Gonzalezrythrocyte distribution width (RBC) [Ratio]12.6 %Lwhfvg20.0-15.0 The [facility] HospitalComment on above:Performed By: #### CBC #### [facility] [address] [place] [address] Dr. Gautam VanHematocrit (Bld) [Volume fraction]47.0 %Cjqshv78.0-54.0The [facility] HospitalComment on above:Performed By: #### CBC #### [facility] [address] [place] [address] Dr. Gautam VanHemoglobin (Bld) [Mass/Vol]16.1 g/pEPrhigg45.0-18.0The [facility] HospitalComment on above:Performed By: #### CBC #### [facility] [address] [place] [address] Dr. Gautam Romano #0.02 10e3/ulNormal0.00-0.03The [facility] HospitalComment on above:Performed By: #### CBC #### [facility] [address] [place] [address] Dr. Gautam Romano %0.2 %Normal0.0-0.5The [facility] HospitalComment on above: Performed By: #### CBC #### [facility] [address] [place], [place] [address] Dr. Gautam Ford #7.0 103/ulCritically high1.2-3.8The [facility] Comment on above:Performed By: #### CBC #### [facility] [address] [place] [address] Dr. Gautam Crumhocytes/100 WBC (Bld)64.7 %Critically high20.5-60.0The [facility] HospitalComment on above:Performed By: #### CBC #### [facility] [address] [place] [address] Dr. Gautam Ramirez DIFF REQNONormalThe [facility] HospitalComment on above: Performed By: #### CBC #### [facility] [address] [place] [address] Dr. Gautam Aguilar (RBC) [Entitic mass]30.7 dzHsrvyy83.9-34.0The [facility] HospitalComment on above:Performed By: #### CBC #### [facility] [address] [place] [address] Dr. Gautam Aguilar (RBC) [Mass/Vol]34.3 g/pCCoxnak81.9-35.2The [facility] HospitalComment on above:Performed By: #### CBC #### [facility] [address] [place] [address] Dr. Gautam Aguilar (RBC) [Entitic vol]89.7 wAGdkfkx12.0-94.0The [facility] HospitalComment on above:Performed By: #### CBC #### [facility] [address] [place] [address] Dr. Gautam Kenney #0.5 103/ulNormal0.3-0.8The [facility] HospitalComment on above:Performed By: #### CBC #### [facility] [address] [place] [address] Dr. Gautam Westbrookocytes/100 WBC (Bld)4.6 %Normal1.7-12.0The [facility] Comment on above:Performed By: #### CBC #### [facility] [address] [address] [address] Gautam Mercer #3.1 103/ulNormal1.4-6.5The [facility] HospitalComment on above:Performed By: #### CBC #### [facility] [address] [address] [address] Gautam Garzautrophils/100 WBC (Bld)28.8 %Critically low43.0-75.0The [facility] HospitalComment on above:Performed By: #### CBC #### [facility] [address] [address] [address] Gautam VanPlatelet mean volume (Bld) [Entitic vol]10.6 fLNormal9.5-13.5The [facility] HospitalCombaraga county memorial hospital on above:Performed By: #### CBC #### [facility] [address] [place] [address] Dr. Gautam VanPLT144 103/ulCritically sfg780-271Hdw [facility] HospitalCombaraga county memorial hospital on above:Performed By: #### CBC #### [facility] [address] [place] [address] Dr. Gautam VanRBC5.24 106/ulNormal4.70-6.10The [facility] on above:Performed By: #### CBC #### [facility] [address] [place] [address] Dr. Gautma VanWBC10.8 103/ulNormal4.0-11.0[facility] on above:Performed By: #### CBC #### [facility] [address] [place] [address] Dr. Gautam VanLIPID PROFILEon 86-82-1083UVZH-HDL RATIO NORMSEE [facility] on above:Result Comment: 3.3 - 4.4 LOW RISK 4.4 - 7.1 AVERAGE RISK 7.1 - 11.0 MODERATE RISK >11.0 HIGH RISKPerformed By: #### LIPID, T4, TSH, CMP ####[facility] [address] [address]Dr. Yilan ChangCholesterol [Mass/Vol]183 mg/dLNormal<=200The [facility] HospitalComment on above:Performed By: #### LIPID, T4, TSH, CMP ####[facility] [address] [address]Dr. Gautam Van Cholesterol in HDL [Mass/Vol]70 mg/dLCritically ljpl23-92DpnOhiohealth O'Bleness Hospital Comment on above:Performed By: #### LIPID, T4, TSH, CMP ####[facility] [address] [address]Dr. Gautam VanCholesterol in LDL [Mass/Vol]104.2 mg/dLChildren's Hospital of ColumbusComment on above:Performed By: #### LIPID, T4, TSH, CMP ####[facility] [address] [place], [place] [address]Dr. Opallan ChangCholesterol.total/Cholesterol in HDL [Mass ratio]2.6 {ratio}NormalOhiohealth O'Bleness HospitalCombaraga county memorial hospital on above:Performed By: #### LIPID, T4, TSH, CMP ####[facility] [address] [place], [place] [address]Dr. Yilan ChangHDL NORMAL> or = 60 mg/dl - LOW CARDIOVASCULAR RISK <40 mg/dl - HIGH CARDIOVASCULAR RISKChildren's Hospital of ColumbusCombaraga county memorial hospital on above:Performed By: #### LIPID, T4, TSH, CMP ####[facility] Xgl[address] [place], [place] [address]Dr. Yilan ChangLDL CALC NORMALSEE BELOWNoUniversity Hospitals Parma Medical CenterComment on above:Result Comment: <100 mg/dl OPTIMAL 100 - 129 mg/dl NEAR OR ABOVE OPTIMAL 130 - 159 mg/dl BORDERLINE HIGH 160 - 189 mg/dl HIGH >190 mg/dl VERY HIGHPerformed By: #### LIPID, T4, TSH, CMP ####[facility] Y[address] [place], [place] [address]Dr. Yilan ChangTriglyceride [Mass/Vol]44 mg/dLNormal <=150[facility] on above:Performed By: #### LIPID, T4, TSH, CMP ####[facility] [address] [place], [place] [address]NfDr. Gautam ShahidLDL CALC8.8 mg/dLNormalThe [facility] HospitalComment on above: Performed By: #### LIPID, T4, TSH, CMP ####[facility] [address] [address]Dr. Gautam BennettF 14(COMP METB)on 12-27-2022 Albumin [Mass/Vol]4.0 g/dLNormal3.4-5.0The [facility] HospitalComment on above: Performed By: #### LIPID, T4, TSH, CMP #### [facility] [address] [address] [address] Gautam VanAlbumin/Globulin [Mass ratio]1.2 {ratio}NormalThe [facility] on above:Performed By: #### LIPID, T4, TSH, CMP #### [facility] [address] [address] [address] Gautam Gleason [Catalytic activity/Vol]104 U/ETmunde78-078Vsd [facility] on above:Performed By: #### LIPID, T4, TSH, CMP #### [facility] [address] [address] [address] Guatam Herrmann [Catalytic activity/Vol]36 U/LOteqwy34-70Tjm [facility] on above:Performed By: #### LIPID, T4, TSH, CMP #### [facility] [address] [address] [address] Gautam Zambrano gap [Moles/Vol]9.8 mmol/LNormalThe [facility] on above:Performed By: #### LIPID, T4, TSH, CMP #### [facility] [address] [address] [address] Gautam Westfall [Catalytic activity/Vol]22 U/MZmtubl42-16Azq [facility] on above:Performed By: #### LIPID, T4, TSH, CMP #### [facility] [address] [address] [address] Gautam Fernandezirubin [Mass/Vol]0.9 mg/dLNormal0.2-1.0The [facility] Comment on above:Performed By: #### LIPID, T4, TSH, CMP #### [facility] [address] [place] [address] Dr. Gautam VanCalcium [Mass/Vol]9.1 mg/dLNormal8.5-10.1The [facility] Comment on above:Performed By: #### LIPID, T4, TSH, CMP #### [facility] [address] [place] [address] Dr. Gautam VanChloride [Moles/Vol]103 mmol/SKsclft81-101OdbOhiohealth O'Bleness Hospital Comment on above:Performed By: #### LIPID, T4, TSH, CMP #### [facility] [address] [place] [address] Dr. Gautam VanCO2 [Moles/Vol]30.6 mmol/MKmfhhx69.0-32.0[facility] Comment on above:Performed By: #### LIPID, T4, TSH, CMP #### [facility] [address] [place] [address] Dr. Gautam VanCreatinine [Mass/Vol]0.81 mg/dLNormal0.70-1.30The [facility] HospitalComment on above:Performed By: #### LIPID, T4, TSH, CMP #### [facility] [address] [place] [address] Dr. Gautam GonzalezGFR-AF MALAGASY>60Normal>=60The [facility] HospitalComment on above:Performed By: #### LIPID, T4, TSH, CMP #### [facility] [address] [place] [address] Dr. Gautam GonzalezGFR-NON AF MALAGASY>60Normal>=60The [facility] HospitalComment on above:Performed By: #### LIPID, T4, TSH, CMP #### [facility] [address] [place] [address] Dr. Gautam VanGlobulin (S) [Mass/Vol]3.3 g/dLNormalThe [facility] HospitalComment on above:Performed By: #### LIPID, T4, TSH, CMP #### [facility] [address] [address] [address] Gautam VanGlucose [Mass/Vol]103 mg/iROjspvd04-382Rkd [facility] Comment on above:Performed By: #### LIPID, T4, TSH, CMP #### [facility] [address] [place] [address] Dr. Gautam VanPotassium [Moles/Vol]4.4 mmol/LNormal3.5-5.1The [facility] Comment on above:Performed By: #### LIPID, T4, TSH, CMP #### [facility] [address] [place] [address] Dr. Gautam VanProtein [Mass/Vol]7.3 g/dLNormal6.4-8.2The [facility] Comment on above:Performed By: #### LIPID, T4, TSH, CMP #### [facility] [address] [place] [address] Dr. Gautam VanSodium [Moles/Vol]139 mmol/VCiuyum073-881Rwp [facility] Comment on above:Performed By: #### LIPID, T4, TSH, CMP #### [facility] [address] [place] [address] Dr. Gautam VanUrea nitrogen [Mass/Vol]16.0 mg/dLNormal7.0-18.0[facility]len[facility] HospitalComment on above:Performed By: #### LIPID, T4, TSH, CMP #### [facility] [address] [place] [address] Dr. Gautam Jacobs nitrogen/Creatinine [Mass ratio]19.8 mg/mgNormalThe [facility] HospitalComment on above:Performed By: #### LIPID, T4, TSH, CMP #### [facility] [address] [place] [address] Dr. Gautam VanT4on 20-21-9363S0 [Mass/Vol]9.10 ug/dLNormal4.50-12.10The [facility] HospitalComment on above:Performed By: #### LIPID, T4, TSH, CMP ####[facility] [address] [place], [place] [address]NfDr. Florez Jabari 60-03-1057RQW6.043 uIU/mLNormal0.358-3.740[facility] Comment on above:Performed By: #### LIPID, T4, TSH, CMP #### [facility] [address] [place], [place] [address] Dr. Gautam VanCT FOOT RT WO CONon 04-20-9765EA FOOT RT WO CONEXAMINATION: CT FOOT RT [...] Electronically authenticated by: KIRSTIE GUERRERO Date: 2022-11-17 08:57Children's Hospital of ColumbusBasi metabolic 2000 panelon 63-77-4985Mlzvc gap [Moles/Vol]9 mmol/LNormal9-18[facility] HospitalComment on above:Order Comment: Specimen Type: BLOOD SPECIMEN [facility] Address: [address] [place] [address]Xwbfqnpwt By: #### 24275-2, 59281-7 #### [facility] CLIA [id number] [address] [facility] [place] [address] [place] AMERICACalcium [Mass/Vol]9.4 mg/dLNormal8.5-10.2 [facility] HospitalComment on above:Order Comment: Specimen Type: BLOOD SPECIMEN [facility] Address: [address] [place], [place] [address]Performed By: #### 80944-8, 30612-1 #### [facility] CLIA [id number] [address] [place] [address] [place] AMERICAChloride [Moles/Vol]101 mmol/LNormal 97-105Av HospitalComment on above:Order Comment: Specimen Type: BLOOD SPECIMEN [facility] Address: [address] [place], [place] [address]Performed By: #### 52135-1, 98930-5 #### [facility] CLIA [id number] [address] [place] [address] [place] AMERICACO2 [Moles/Vol]30 mmol/EIfgurh00-85Jgub HospitalComment on above:Order Comment: Specimen Type: BLOOD SPECIMEN [facility] Address: [address] [place], [place] [address]Performed By: #### 03991-0, 48131-8 #### [facility] IA [id number] [address] [place] [address] [place] AMERICACreatinine [Mass/Vol]1.01 mg/dLNormal 0.73-1.22Av HospitalComment on above:Order Comment: Specimen Type: BLOOD SPECIMEN [facility] Address: [address] [place], [place] [address]Performed By: #### 06481-8, 39576-8 #### [facility] [place] [id number] [address] [place] [address] [place] AMERICAESTIMATED GLOMERULAR FILTRATION RATE84 mL/min/1.73m???Normal>=60Av HospitalComment on above:Order Comment: Specimen Type: BLOOD SPECIMEN [facility] Address: [address] [place], [place] [address]Result Comment: Estimated Glomerular Filtration Rate (eGFR) is [...] not accurately reflect actual GFR.Performed By: #### 28146-0, 45442-9 #### [facility] CLIA [id number] [address] [place] [address] [place] AMERICAGlucose [Mass/Vol]92 mg/xNJffjek56-19Zwig HospitalComment on above:Order Comment: Specimen Type: BLOOD SPECIMEN [facility] Address: [address] [place], [place] [address] Comment: The [place] [employer] (ADA) provides guidance for cutoff [...] Standards of Medical Care in Diabetes 2016, [place] [employer]. Diabetes Care. 2016.39(Suppl 1).Performed By: #### 15347-0, 32229-9 #### [facility] CLIA [id number] [address] [place] [address] [place] AMERICAPotassium [Moles/Vol]4.4 mmol/LNormal 3.7-5.1[facility] HospitalComment on above:Order Comment: Specimen Type: BLOOD SPECIMEN [facility] Address: [address] [place], [place] [address]Performed By: #### 50316-2, 82335-5 #### [facility] CLIA [id number] [address] [place] [address] [place] AMERICASodium [Moles/Vol]140 mmol/NWkhmed805-581 [facility] HospitalComment on above:Order Comment: Specimen Type: BLOOD SPECIMEN [facility] Address: [address] [address]Oyqjcwqfj By: #### 63457-4, 60915-4 #### [facility] CLIA [id number] [address] [place] [address] [place] AMERICAUrea nitrogen [Mass/Vol]22 mg/dLNormal 9-24Avon HospitalComment on above:Order Comment: Specimen Type: BLOOD SPECIMEN [facility] Address: [place] [facility] [address]Dwxlsvysy By: #### 53400-3, 70711-6 #### [facility] CLIA [id number] [address] [place] [address] [place] AMERICAAnion gap [Moles/Vol]9 mmol/L9 - 18 mmol/LCleveland ClinicCalcium [Mass/Vol]9.4 mg/dL8.5 - 10.2 mg/dLCleacmc healthcare system ClinicChloride [Moles/Vol]101 mmol/L97 - 105 mmol/LCleveland ClinicCO2 [Moles/Vol]30 mmol/L22 - 30 mmol/LCleveland ClinicCreatinine [Mass/Vol]1.01 mg/dL0.73 - 1.22 mg/dLOhiohealth Arthur G.H. Bing, Md, Cancer CenterEstimated Glomerular Filtration Rate84 mL/min/1.73m>=60 mL/min/1.73mCleveland ClinicGlucose [Mass/Vol]92 mg/dL74 - 99 mg/dLOhiohealth Arthur G.H. Bing, Md, Cancer CenterPotassium [Moles/Vol]4.4 mmol/L3.7 - 5.1 mmol/LCleveland ClinicSodium [Moles/Vol]140 mmol/L136 - 144 mmol/LCleveland ClinicUrea nitrogen [Mass/Vol]22 mg/dL9 - 24 mg/dLOhiohealth Arthur G.H. Bing, Md, Cancer CenterMAGNESIUM BLDon 10-17-2022 Magnesium [Mass/Vol]2.1 mg/dL1.7 - 2.3 mg/dLOhiohealth Arthur G.H. Bing, Md, Cancer CenterMagnesium SerPl-mCnc on 77-26-7555Fslakeejn [Mass/Vol]2.1 mg/dLNormal1.7-2.3Avon HospitalComment on above:Order Comment: Specimen Type: BLOOD SPECIMEN [facility] Address: [place] [address]Zyyjjsyku By: #### 07599-2, 79478-4 #### [facility] CLIA [id number] [address] [facility] [place] [address] [place] AMERICAXR ANKLE RT MIN 3 VIEWSon 84-32-6694MF ANKLE RT MIN 3 VIEWSEXAM: XR ANKLE [...] Electronically authenticated by: DIANE MENEZES Date: 2022-10-09 07:[address] [place], [place] [address]ARRHYTHMIA TRANS TELE MEASUREon 36-96-5725Xrgduqg RI Interval 179Cleveland ClinicMEASURE QRS Qnmjwlqj08Clzflsepw ClinicMEASURE QT Aibtqqij957 Herrera ClinicMEASURE RR INTERVAL MAX78.86C[place] ClinicSymptomsroutine [place] ClinicARRHYTHMIA TRANS TELE MEASUREon 20-94-2640Hmmuwvnyjz-Activity tried a couple different timesCleveland ClinicMeasure RI Iwvmfnpg537Mypsiyygf ClinicMEASURE QRS Ehmosaqo79Dqupqnyhh ClinicMEASURE QT Twjculhh674Kyyaewpai ClinicMEASURE RR INTERVAL MAX91.21C[place] ClinicSymptomsroutinePark City ClinicARRHYTHMIA TRANS TELE MEASUREon 58-75-7470Mxxmcam RI Ujedbgtx850Djcyizazy ClinicMEASURE QRS Ytxfwlai80Dnjwombed ClinicMEASURE QT Rbbgzfzr292Bdknlgrzx ClinicMEASURE RR INTERVAL MAX81.74Cleveland ClinicSymptomsroutinePark City ClinicARRHYTHMIA TRANS TELE MEASUREon 65-42-5225Pnafktg RI Kradcdkh449Jiyvmdkci ClinicMEASURE QRS Gabynchb42Zonmvsadj ClinicMEASURE QT Ugcbuesx463Iocyulocd ClinicMEASURE RR INTERVAL MAX82.87CleMetroHealth Cleveland Heights Medical CenterCREATININE, BLOOD (POC)on 45-92-4377Jaftfwsenf [Mass/Vol]0.90 mg/dL0.7 - 1.4 mg/dLPark City ClinicGFR/1.73 sq M.predicted among non-blacks MDRD (S/P/Bld) [Vol rate/Area]mL/min/{1.73_m2}[facility] PULMONARY VEIN W IVCONon 34-38-1068Kxwrvuhgz ResultACTIONABLEAbnormalCleveland ClinicARRHYTHMIA TRANS TELE MEASUREon 19-19-1209Rdosyij RI Kzucfzap450Tboohsmjy ClinicMEASURE QRS Zratykhf36Managtamf ClinicMEASURE QT Arcqysax125Lqrsmdfge ClinicMEASURE RR INTERVAL MAX75.85CleWright-Patterson [facility] - BP is elevated, pt. feeling palpitaions when lying down, tired-3-5 dayPark City ClinicARRHYTHMIA TRANS TELE MEASUREon 13-54-7751Cemrxkj RI Xoqurtvr065Jjabkrsmb ClinicMEASURE QRS Interval 107Cleacmc healthcare system ClinicMEASURE QT Rfhhhljh679Wvsbsjunm ClinicMEASURE RR INTERVAL MAX 75.85CleMemorial Health System Selby General HospitalymptomsrECU Health Chowan Hospital ClinicARRHYTHMIA TRANS TELE MEASUREon 46-78-8285Bnlxikt RI Yjgwczek248Tjrclrgfd ClinicMEASURE QRS Tofovpfg36 Herrera ClinicMEASURE QT Whgcygik979Jcoiukpyn ClinicMEASURE RR INTERVAL MAX 77.16CleMemorial Health System Selby General HospitalymptomsroutinePark City ClinicARRHYTHMIA TRANS TELE MEASUREon 51-64-6471Bewpuap RI Rcuvware382Atmutmsef ClinicMEASURE QRS Lmzixekh78 Herrera ClinicMEASURE QT Omlwsnoe635Dpxamsvlx ClinicMEASURE RR INTERVAL MAX 70.82CleMemorial Health System Selby General HospitalymptomsroutineCleveland ClinicARRHYTHMIA TRANS TELE MEASUREon 38-58-9978Mabtqej RI Jyskpyhs804Uozkuzddq ClinicMEASURE QRS Jsghxqma91 Herrera ClinicMEASURE QT Kcfmrjti690Owimoazed ClinicMEASURE RR INTERVAL MAX 71.95CleUniversity Hospitals St[address] John Medical Centerptomsrssm saint m[facility]'s health centerinePark City ClinicARRHYTHMIA TRANS TELE MEASUREon 85-62-9325Nzfkuqx RI Ooxaxikz326Qrnamdtfg ClinicMEASURE QRS Zgsidcap31 Herrera ClinicMEASURE QT Vvlcevvu200Olkrjaaqt ClinicMEASURE RR INTERVAL MAX 72.53Cleveland [facility] CitiesymptomsroutineCleveland ClinicARRHYTHMIA TRANS TELE MEASUREon 78-44-0232Yipfxnz RI Qigigdpa955Uimpbzrcj ClinicMEASURE QRS Rlurffyk27 Herrera ClinicMEASURE QT Hrvzntuk213Ifhcsgykh ClinicMEASURE RR INTERVAL MAX 67.8[facility] CitiesymptomsrECU Health [facility] Hospital ClinicARRHYTHMIA TRANS TELE MEASURE on 43-87-5615Vpaqjom RI Knxgjxnd565Upwfjvmql ClinicMEASURE QRS Donaknbe50 Herrera ClinicMEASURE QT Ijpqkmvx737Zwimiabro ClinicMEASURE RR INTERVAL MAX 71.89CleMemorial Health System Selby General HospitalymptomsroutineCleveland ClinicARRHYTHMIA TRANS TELE MEASUREon 26-43-8648Pklfpoa RI Xczarnnh992Rehhorvnx ClinicMEASURE QRS Krodeyje37 Herrera ClinicMEASURE QT Vrnpmixb840Egojhdhqc ClinicMEASURE RR INTERVAL MAX 77.83CleMemorial Health System Selby General HospitalymptomsroutineCleveland ClinicARRHYTHMIA TRANS TELE MEASUREon 81-73-3397Gssebuv RI Qbxpynck610Agnckysfl ClinicMEASURE QRS Bvssevlh39 Herrera ClinicMEASURE QT Jjsgxkua612Cmnfhhttq ClinicMEASURE RR INTERVAL MAX 79.56[facility] CitiesymptomsroutineCleveland ClinicARRHYTHMIA TRANS TELE MEASUREon 42-34-8378Vgzlwff RI Pawzseqg802Ysbbjluge ClinicMEASURE QRS Hahuvbkz05 Herrera ClinicMEASURE QT Ryepotgb733Xgdckprdc ClinicMEASURE RR INTERVAL MAX 66.79CleMemorial Health System Selby General HospitalymptomsRoutineCleveland ClinicARRHYTHMIA TRANS TELE MEASUREon 02-93-0155Zvrqwhd RI Igfeshmw963Mcikdqfeg ClinicMEASURE QRS Gpkjmhqj94 Herrera ClinicMEASURE QT Ktmlxnnc748Zhiogxmof ClinicMEASURE RR INTERVAL MAX 68.15C[facility] ClinicSymptomsroutineCleveland ClinicARRHYTHMIA TRANS TELE MEASUREon 07-60-8185Xapkchs RI Rkcvemwr774Puoajaxnx ClinicMEASURE QRS Cwomaqhr96 Herrera ClinicMEASURE QT Vqphgppo065Tsvghbppc ClinicMEASURE RR INTERVAL MAX 74.32C[facility] ClinicSymptomsroutineCleveland ClinicARRHYTHMIA TRANS TELE MEASUREon 65-92-5027Uobixwe RI Vpgfonkl800Hupicvwaf ClinicMEASURE QRS Mmvatxii97 Herrera ClinicMEASURE QT Mfnmbtvb075Qbyrajawc ClinicMEASURE RR INTERVAL MAX 73.06CleMemorial Health System Selby General HospitalymptomsbaselineCleveland ClinicARRHYTHMIA TRANS TELE MEASUREon 21-93-8374Peqhfug RI Qcgjmefr781Uvbkujkmi ClinicMEASURE QRS Hzfjrglr28 [place] ClinicMEASURE QT Sfuxdtxs658Zhauziywb ClinicMEASMETHODIST [facility] RR INTERVAL MAX 70.75[place] ClinicSymptomsbaselineOhiohealth Arthur G.H. Bing, Md, Cancer CenterTobacco Screening.on 94-07-8915Rqsuyid use status CPHSb) NoMP-[facility] [address] DO Work Phone: No Panel Informationon 96-62-644255.0\S\27.0Normal 22.0-30.0MP-[facility] [address] DO Work Phone: Comment on above:PERFORMED BY:[facility] [place], [place] [id number] MEDICAL DIRECTORADEEL LOPES M.D.99\S\79Tldnla20-393BK-Gfxxm [place] [facility] DO Work Phone: [phone] 999-83943.8\S\3.8Ouxutm4.5-5.1MP-[facility] [address] DO Work Phone: [phone]\S\174Wqcfql349-100FP-Smsnq [place] [facility] [address] DO Work Phone: IO EKG Electrocardiogram- 12 Leadon 76-92-7578IE EKG Electrocardiogram- 12 LeadSee Scanned DocumentMP-[facility] [address] DO Work Phone: Office Visit (Cardiology)on 41-55-1619Fsgokt-up visit Diagnoses/Problems Assessed Essential hypertension (401.9) (I10) [...] Vital Signs Recorded: 26Jun2021 01:28PMRecorded: 26Jun2021 01:06PM Glhyfygu691, RUE, Qpwkaas121, LUE, Sitting Ojktdkmri94, R (more content not included)...NormalUH TouchworksTobacco Screening.on 14-53-0876Dvav risk assessmenta) No falls within the last yearWind[facility] [address] DO Work Phone: Tobacco use status [facility]b) NoMP-[facility] [address] DO Work Phone: CREATININEon 85-28-9192Fgdzrybtum [Mass/Vol]0.91 mg/dL Normal0.50 - 1.30[facility] Medical CenterComment on above:Performed By: #### CREAT #### [address] [id number]-HXOGHBM AM.>60Normal>60[facility] Comment on above:Result Comment: CALCULATIONS OF ESTIMATED GFR ARE PERFORMED USING THE MDRD STUDY EQUATION FOR THE IDMS-TRACEABLE CREATININE METHODS. CLIN CHEM 2007;53:766-72Performed By: #### CREAT #### [address] [id number]-VSH AM.>60Normal>60[facility] Comment on above:Performed By: #### CREAT #### [address] [id number] PANELon 93-83-1608Teull gap [Moles/Vol]12 mmol/L Dhodeq69 - 20[facility] Medical CenterComment on above:Performed By: #### ELECT #### [address] [address] [id number] [Moles/Vol]100 mmol/HItihta89 - 107[facility] CenterComment on above:Performed By: #### ELECT #### [address] [id number] (Bld) [Moles/Vol]31 mmol/AUuwtlo29 - 32[facility] CenterComment on above:Performed By: #### ELECT #### [address] [id number] [Moles/Vol]3.9 mmol/LNormal3.5 - 5.3[facility] DenvilleComment on above:Performed By: #### ELECT #### [address] [id number] [Moles/Vol]139 mmol/DRlxwfd347 - 145[facility] CenterComment on above:Performed By: #### ELECT #### [address] [id number] NITROGENon [id number] nitrogen [Mass/Vol]19 mg/dL Normal6 - 23[facility] CenterComment on above:Performed By: #### UREA #### [address] [id number] Vital Signs Date TimeVital SignValuePerforming AnnlqvarlPxytmstf99-48-8980 12:51-0400Body ztupli887.88 cmKaren Hemmer CANVAS CUTTER-C Work Phone: 1(067)[address] [place], [place] 2065310-03-2025 12:51-0400 Body mass index (BMI) [Ratio]26.4 kg/l5Rbhhl Hemmer [employer] C[employer]TER-C Work Phone: 1(564)[address] [place], [place] 2065310-03-2025 12:51-0400 Body axtcbmkqnfd82.8 [degF]Linda Hemmer [employer]VAS C[employer]TER-C Work Phone: 1(316)[address] [place], [place] 2065310-03-2025 12:51-0400 Body gbdlpy74.45 kgKaren Hemmer [employer]VAS CUTTER-C Work Phone: 1(203)[address] [place], [place] 2065310-03-2025 12:51-0400 Diastolic blood ayamslbv60 mm[Hg]Linda Hemmer [employer]VAS C[employer]TER-C Work Phone: 1(698)[address] [place], [place] 2065310-03-2025 12:51-0400 Heart rate65 /minKaren Hemmer [employer]VAS CUTTER-C Work Phone: 1(527)[address] [place], [place] 2065310-03-2025 12:51-0400 Respiratory rate16 /minKaren Hemmer CANVAS CUTTER-C Work Phone: 1(368)[address] [place], [place] 2065310-03-2025 12:51-0400 SaO2% (BldA) [Mass fraction]99 %Linda Hemmer [employer]VAS C[employer]TER-C Work Phone: 1(305)[address] [place], [place] 2065310-03-2025 12:51-0400 Systolic blood ilxdvbmk652 mm[Hg]Linda Hemmer [employer]VAS CUTTER-C Work Phone: 1(512)[address] [place], [place] 2065309-19-2025 09:38-0400 Body xopeov326.88 cmNjen Hemmer [employer]VAS C[employer]TER-C Work Phone: 1(443)[address] [place], [place] 2065309-19-2025 09:38-0400 Body mass index (BMI) [Ratio]26 kg/p1Nlmbd Hemmer [employer]VAS C[employer]TER-C Work Phone: 1(637)[address] [place], [place] 2065309-19-2025 09:38-0400 Body nzhdvcabwob27.2 [degF]Linda Hemmer [employer]VAS CUTTER-C Work Phone: 1(426)[address] [place], [place] 2065309-19-2025 09:38-0400 Body ntyprx72.08 kgLinda Hemmer [employer]VAS CUTTER-C Work Phone: 1(644)[address] [place], [place] 2065309-19-2025 09:38-0400 Diastolic blood huqjctwu07 mm[Hg]Linda Hemmer [employer]VAS CUTTER-C Work Phone: 1(720)[address] [place], [place] 2065309-19-2025 09:38-0400 Heart rate66 /minKaren Hemmer CANVAS CUTTER-C Work Phone: 1(284)[address] [place], [place] 2065309-19-2025 09:38-0400 Respiratory rate16 /minKaren Hemmer CANVAS CUTTER-C Work Phone: 1(350)[address] [place], [place] 2065309-19-2025 09:38-0400 SaO2% (BldA) [Mass fraction]100 %Linda Hemmer [employer]VAS CUTTER-C Work Phone: 1(997)[address]09-19-2025 09:38-0400 Systolic blood utaapmte610 mm[Hg]Linda Hemmer [employer]VAS CUTTER-C Work Phone: 1(608)[address] [place], [place] 2065308-11-2025 14:32-0400 Body evjfkf533.9 cmAarelis Tuttle MD Work Phone: [facility]08-11-2025 14:32-0400Body mass index (BMI) [Ratio]26.49 kg/m8EebedBill Tuttle MD Work Phone: [facility]08-11-2025 14:32-0400Body uyxvvw93.6 kgBill Tuttle MD Work Phone: [facility]08-11-2025 14:32-0400Diastolic blood ubfowkbj43 mm[Hg]Bill Tuttle MD Work Phone: [facility]08-11-2025 14:32-0400Heart rate76 /min Bill Tuttle MD Work Phone: [facility]08-11-2025 14:32-0400Systolic blood vabglqlp267 mm[Hg]Bill Tuttle MD Work Phone: [facility]07-11-2025 14:53-0400Body yoxhjs726.88 cmNjen Hemmer CANVAS CUTTER-C Work Phone: 1(694)[address]07-11-2025 14:53-0400 Body mass index (BMI) [Ratio]26.9 kg/x0Legcz Hemmer [employer]VAS CUTTER-C Work Phone: 1(804)[address]07-11-2025 14:53-0400 Body fwfzzhydchv53.7 [degF]Linda Hemmer [employer]VAS CUTTER-C Work Phone: 1(813)[address]07-11-2025 14:53-0400 Body ouvscq58.26 kgNjen Hemmer [employer]VAS CUTTER-C Work Phone: 1(825)891-[address] [place], [place] 4378007-11-2025 14:53-0400 Diastolic blood hemmzjou14 mm[Hg]Linda Hemmer [employer]VAS CUTTER-C Work Phone: 1(582)[address]07-11-2025 14:53-0400 Heart rate65 /minKaren Hemmer [employer]VAS CUTTER-C Work Phone: 1(875)[address]07-11-2025 14:53-0400 Respiratory rate18 /minKaren Hemmer CANVAS CUTTER-C Work Phone: 1(962)[address]07-11-2025 14:53-0400 SaO2% (BldA) [Mass fraction]98 %Linda Hemmer CANVAS CUTTER-C Work Phone: [facility]07-11-2025 14:53-0400 Systolic blood mm[Hg]Linda Hemmer CANVAS CUTTER-C Work Phone: [facility]07-08-2025 09:26-0400 Body eryhnx504.9 cmNjen Hemmer PA Work Phone: 1(147)471-[address] [place], [place] [address]Yvuhfkrkzk57-01-8885 09:26-0400Body mass index (BMI) [Ratio]27.04 kg/q3Vtkbe Hemmer PA Work Phone: 1(199)042-[address] [place], [place] [address]Vkbyytwcwh45-46-9675 09:26-0400Body avomuk34.45 kgNjen Hemmer PA Work Phone: [facility]Aicmvriuwy50-55-7678 09:26-0400Diastolic blood bumhaury91 mm[Hg]Linda Hemmer PA Work Phone: [facility] HospitalLsodokoahy57-67-6883 09:26-0400Heart rate72 /min Linda Hemmer PA Work Phone: [facility] HospitalLoqrucjsmp17-39-7178 09:26-0400Respiratory rate16 /minNjen Hemmer PA Work Phone: [facility] HospitalTlfwihnihp14-27-9144 09:26-4569WnO1% (BldA) [Mass fraction]98 %Linda Hemmer PA Work Phone: [facility] HospitalFdgcglznov71-78-7971 09:26-0400Systolic blood zzjizxla433 mm[Hg]Linda Hemmer PA Work Phone: [facility] HospitalJtfqswqcty84-92-2525 09:35-0400Body .88 cm[facility]06-28-2025 09:35-0400Body mass index (BMI) [Ratio]27.3 kg/i0GqnxdomfqPar[facility] Hospital06-28-2025 09:35-0400Body pgildqswlyi28.7 [degF][facility]06-28-2025 09:35-0400Body reoyae37.28 [facility]06-28-2025 09:35-0400Diastolic blood mbvnyuqr62 mm[Hg][facility]06-28-2025 09:35-0400 Heart rate73 /[facility]06-28-2025 09:35-0400 Respiratory rate18 /[facility]06-28-2025 09:35-0400 SaO2% (BldA) [Mass fraction]97 %[facility]06-28-2025 09:35-0400Systolic blood oclzpead388 mm[Hg][facility] 02-10-2025 10:48-0400Diastolic blood egwekxla13 mm[Hg][facility]06-19-2025 10:48-0400Heart rate77 /[facility] 02-10-2025 10:48-0400Respiratory rate18 /[facility] 02-10-2025 10:48-2426LhK4% (BldA) [Mass fraction]100 %[facility]06-19-2025 10:48-0400Systolic blood nntxocvx749 mm[Hg][facility]06-19-2025 09:16-0400Body xitgmu970.88 cm[facility]06-19-2025 09:16-0400Body phtozv88.71 [facility]05-30-2025 15:04-0400Body lilosa415.88 cm[facility]05-30-2025 15:04-0400Body mass index (BMI) [Ratio]27.9 kg/h3ZsvqtynbdParma Community General Hospital05-30-2025 15:04-0400Body jmfhbamkxqg19.2 [degF][facility]05-30-2025 15:04-0400Body zfabkv56.44 [facility]05-30-2025 15:04-0400Diastolic blood ksyljgyo14 mm[Hg] [facility]05-30-2025 15:04-0400Heart rate62 /[facility]05-30-2025 15:04-0400Respiratory rate18 /[facility]05-30-2025 15:04-6113HbD4% (BldA) [Mass fraction]98 % [facility]05-30-2025 15:04-0400Systolic blood mm[Hg][facility]04-17-2025 15:34-0400Body abpqbt360.9 cm Eulalio Martinez DO Work Phone: 1([phone] HospitalPlydlxxysl99-29-1717 15:34-0400Body mass index (BMI) [Ratio]28.21 kg/a2PcjdbEulalio Martinez DO Work Phone: 1(840)7-[address] [place], [place] [address]Lckiltjass71-11-0297 15:34-0400Body ritepl71.35 kgEulalio Martinez DO Work Phone: 1(142)[address] [place], [place] 6784602-06-2025 15:52-0500Body ictjnq333.9 cmEulalio Martinez DO Work Phone: 1(558)[address] [place], [place] 6784602-06-2025 15:52-0500Body mass index (BMI) [Ratio]28.35 kg/l8TpmhvEulalio Martinez DO Work Phone: 1(715)[facility] [place], [place] [address]Cyrwordfuu22-70-6737 15:52-0500Body temperature 97.39 [degF]Eulalio Martinez DO Work Phone: 1(695)[address] [place], [place] 6784602-06-2025 15:52-0500Body .8 kg Eulalio Martinez DO Work Phone: [facility] HospitalFxyhuzqwih34-69-6082 16:43-0500Body hoyock887.9 cmStephen Ebbitt PA-C Work Phone: [facility]01-28-2025 16:43-0500Body mass index (BMI) [Ratio]27.81 kg/j9Wefjakb Ebbitt PA-C Work Phone: [facility]01-28-2025 16:43-0500Body gsncwe75 kg Tony Ebbitt PA-C Work Phone: [facility]01-28-2025 16:43-0500Diastolic blood usgepswh62 mm[Hg]Tony Ebbitt PA-C Work Phone: [facility]01-28-2025 16:43-0500Systolic blood gmotjkaf840 mm[Hg]Tony Frank PA-C Work Phone: [facility]01-22-2025 15:28-0500Body .9 cmLinda Hemmer PA Work Phone: [facility] NorthBojbzoilrd47-50-8473 15:28-0500Body mass index (BMI) [Ratio]28.4 kg/l7Dckft Hemmer PA Work Phone: [facility] NorthSkfvqkwifl19-32-3708 15:28-0500Body temperature 97.7 [degF]Linda Hemmer PA Work Phone: [facility] NorthPfvitdlznc72-67-0981 15:28-0500Body .98 kgLinda Hemmer PA Work Phone: [facility] NorthWjfbcwfmav78-46-1489 15:28-0500Diastolic blood sgysqctn56 mm[Hg]Linda Hemmer PA Work Phone: [facility] NorthNpowiwugvb35-42-5886 15:28-0500Heart rate64 /min Linda Hemmer PA Work Phone: [facility] NorthPslxvnwaru93-02-0069 15:28-0500Respiratory rate16 /minNjen Hemmer PA Work Phone: noCox NorthRuapqgwbzc74-13-3527 15:28-1492WpM2% (BldA) [Mass fraction]98 %Linda Hemmer PA Work Phone: [facility] NorthKrspufjzfd18-23-4566 15:28-0500Systolic blood gbcpwiny937 mm[Hg]Linda Hemmer PA Work Phone: [facility]OC[facility] NorthSplufqlnzj86-29-1933 11:04-0500Body itckqr615.9 cmEulalio Martinez DO Work Phone: noCox NorthGdzwbcopai55-42-9649 11:04-0500Body mass index (BMI) [Ratio]27.4 kg/u4PjwxuEulalio Martinez DO Work Phone: [facility] Jkjnqhhhyi32-80-8840 11:04-0500Body temperature 97.39 [degF]Eulalio Martinez DO Work Phone: 1(467)[address] [place], [place] 6784612-31-2024 11:04-0500Body mxjebf95.63 kgEulalio Martinez DO Work Phone: 1(798)[address] [place], [place] 6784612-13-2024 15:24-0500Body pxwzio466.88 cmSedrick Ye MD Work Phone: [facility]12-13-2024 15:24-0500 Body kmbpgo14.98 kgSedrick Ye MD Work Phone: [facility]12-03-2024 15:52-0500 Body .9 cmEulalio Martinez DO Work Phone: 1(577)[address] [place], [place] 6784612-03-2024 15:52-0500Body mass index (BMI) [Ratio]27.4 kg/j9LcogrEulalio Martinez DO Work Phone: 1(173)[facility] [place], [place] [address]Ozodnwqnzj07-74-7534 15:52-0500Body .63 kgEulalio Martinez DO Work Phone: 1(161)[address] [place], [place] 6784610-22-2024 15:49-0400Body .9 cmEulalio Martinez DO Work Phone: 1(770)[address] [place], [place] 6784610-22-2024 15:49-0400Body mass index (BMI) [Ratio]27.4 kg/k4XvhjnEulalio Martinez DO Work Phone: 1(934)[address] [place], [place] 6784610-22-2024 15:49-0400Body .63 kgEulalio Martinez DO Work Phone: 1(576)[address] [place] [address]-18-2024 09:58-0400Body jewcyn219.9 Rama Haque MD Work Phone: [facility] HospitalPbogolkpuc11-71-8241 09:58-0400Body mass index (BMI) [Ratio]27.4 kg/j9QrxdkqGrace Haque MD Work Phone: [facility] HospitalTwyxxfhiui59-65-7268 09:58-0400Body fitvcr89.63 kgGrace Haque MD Work Phone: [place] [address]Vmxpfkhhsc01-57-5897 16:21-0400Body .9 cmSedrick Lyons CANVAS CUTTER Work Phone: [facility] HospitalLtfcyzlufn40-81-6261 16:21-0400Body mass index (BMI) [Ratio]27.4 kg/m2Sedrick Lyons CANVAS CUTTER Work Phone: [facility] HospitalXgypobddzj61-15-3109 16:21-0400Body .63 kgSedrick Lyons CANVAS CUTTER Work Phone: [facility] HospitalAivmbsdqcs75-41-4464 16:21-0400Diastolic blood mm[Hg]Sedrick Lyons CANVAS CUTTER Work Phone: [facility] HospitalNgfkepally46-33-4562 16:21-0400Heart rate67 /min Sedrick Lyons CANVAS CUTTER Work Phone: [facility] HospitalKqcnaxxzyx83-40-1276 16:21-4744UdF3% (BldA) [Mass fraction]98 %Sedrick Lyons CANVAS CUTTER Work Phone: [facility] HospitalEsxdksszxl49-23-5511 16:21-0400Systolic blood vfhyikyj627 mm[Hg]Sedrick Lyons CANVAS CUTTER Work Phone: [facility] HospitalJcavussfes89-99-2222 09:21-0400Body srfvix274.9 Rama Haque MD Work Phone: [facility] HospitalXdnhdulfqm73-22-9894 09:21-0400Body mass index (BMI) [Ratio]27.12 kg/v7GkgugnGrace Haque MD Work Phone: [facility] HospitalMiqlydxfeh27-24-0776 09:21-0400Body tkysso41.72 kgGrace Haque MD Work Phone: [facility] HospitalAdpftzllij44-57-4088 09:21-0400Diastolic blood eljooipi65 mm[Hg]Grace Haque MD Work Phone: [facility] HospitalQxpvawcklv94-66-1171 09:21-0400Systolic blood uefwpwhg107 mm[Hg]Grace Haque MD Work Phone: [facility] HospitalAplrqndrnj44-47-6687 14:57-0400Body qrcocy156.88 cmMD Sedrick Ye Work Phone: 1(348)[address]08-30-2024 14:57-0400 Body mass index (BMI) [Ratio]26.7 kg/m2MD Sedrick Ye Work Phone: 1(699)459-[address] [place], [place] 6170108-30-2024 14:57-0400 Body woarobudioj40.3 [degF]MD Sedrick Ye Work Phone: 1(854)[address]08-30-2024 14:57-0400 Body .35 kgMD Sedrick Ye Work Phone: 1(197)[address]08-30-2024 14:57-0400 Diastolic blood vfcguecb07 mm[Hg]MD Sedrick Ye Work Phone: 1(719)[address]08-30-2024 14:57-0400 Heart rate62 /minMD Sedrick Ye Work Phone: 1(839)[address]08-30-2024 14:57-0400 Respiratory rate16 /minMD Sedrick Ye Work Phone: 1(756)[address]08-30-2024 14:57-0400 SaO2% (BldA) [Mass fraction]97 %MD Sedrick Ye Work Phone: 1(879)[address]08-30-2024 14:57-0400 Systolic blood hzuhyziv043 mm[Hg]MD Sedrick Ye Work Phone: 1(083)858-[address] [place], [place] 6170106-07-2024 14:12-0400 Body .9 cmAbdul Watkizzyr Work Phone: [facility]06-07-2024 14:12-0400Body mass index (BMI) [Ratio]27.69 kg/x4Tueay Roger LYNCH Work Phone: [facility]06-07-2024 14:12-0400Body .6 kgAbdul Watkizzyr Work Phone: [facility]06-07-2024 14:12-0400Diastolic blood eebayesm19 mm[Hg]Bill Tuttle MD Work Phone: [facility]06-07-2024 14:12-0400Heart rate66 /min Bill Tuttle MD Work Phone: [facility]06-07-2024 14:12-0099BxM7% (BldA) [Mass fraction]97 %Bill Tuttle MD Work Phone: [facility]06-07-2024 14:12-0400Systolic blood czduqlah870 mm[Hg]Bill Tuttle MD Work Phone: [facility]05-31-2024 14:01-0400Body xlqrpy882.88 cmMD Sedrick Ye Work Phone: 1(970)[address]05-31-2024 14:01-0400 Body mass index (BMI) [Ratio]27.5 kg/m2MD Sedrick Ye Work Phone: 1(195)[address]05-31-2024 14:01-0400 Body aqaxogxypkd01.4 [degF]MD Sedrick Ye Work Phone: 1(138)[address]05-31-2024 14:01-0400 Body mncpeo06.07 kgMD Sedrick Ye Work Phone: 1(733)[address]05-31-2024 14:01-0400 Diastolic blood qlmuzybs73 mm[Hg]MD Sedrick Ye Work Phone: 1(203)[address]05-31-2024 14:01-0400 Heart rate71 /minMD Sedrick Ye Work Phone: 1(779)[address]05-31-2024 14:01-0400 Respiratory rate20 /minMD Sedrick Ye Work Phone: 1(353)[address]05-31-2024 14:01-0400 SaO2% (BldA) [Mass fraction]99 %MD Sedrick Ye Work Phone: 1(150)[address]05-31-2024 14:01-0400 Systolic blood jlxidjba781 mm[Hg]MD Sedrick Ye Work Phone: [facility]12-07-2023 13:23-0500 Body vejzuf029.9 Deric Tuttle MD Work Phone: [facility]12-07-2023 13:23-0500Body fvecey29.91 kgBill Tuttle MD Work Phone: [facility]12-07-2023 13:23-0500Diastolic blood bvircmhj17 mm[Hg]Bill Tuttle MD Work Phone: [facility]12-07-2023 13:23-0500Heart rate71 /min Bill Tuttle MD Work Phone: [facility]12-07-2023 13:23-0500Systolic blood vircixpy166 mm[Hg]Bill Tuttle MD Work Phone: [facility]05-03-2023 14:11-0400Body .9 Deric Tuttle MD Work Phone: [facility]05-03-2023 14:11-0400Body oluxgj21.72 kgBill Tuttle MD Work Phone: [facility]05-03-2023 14:11-0400Diastolic blood xwrulwuy85 mm[Hg]Bill Tuttle MD Work Phone: [facility]05-03-2023 14:11-0400Systolic blood qwozqthj393 mm[Hg]Bill Tuttle MD Work Phone: [facility]02-23-2023 15:10-0500Body txppdi253.9 Deric Tuttle MD Work Phone: [facility]02-23-2023 15:10-0500Body pxaaia44.63 kgBill Tuttle MD Work Phone: [facility]02-23-2023 15:10-0500Diastolic blood tdrfubze88 mm[Hg]Bill Tuttle MD Work Phone: [facility]02-23-2023 15:10-0500Heart rate75 /min Bill Tuttle MD Work Phone: [facility]02-23-2023 15:10-8225OjT2% (BldA) [Mass fraction]98 %Bill Tuttle MD Work Phone: [facility]02-23-2023 15:10-0500Systolic blood zovopvwb247 mm[Hg]Bill Ttutle MD Work Phone: [facility]01-20-2023 15:12-0500Body qazwjg671.9 cmAarelis Tuttle MD Work Phone: [facility]01-20-2023 15:12-0500Body ojrtlo03.53 kgBill Tuttle MD Work Phone: [facility]01-20-2023 15:12-0500Diastolic blood mm[Hg]Bill Tuttle MD Work Phone: [facility]01-20-2023 15:12-0500Heart rate79 /min Bill Tuttle MD Work Phone: [facility]01-20-2023 15:12-4984FuO2% (BldA) [Mass fraction]98 %Bill Tuttle MD Work Phone: [facility]01-20-2023 15:12-0500Systolic blood yjckguni016 mm[Hg]Bill Tuttle MD Work Phone: [facility]12-08-2022 13:49-0500Diastolic blood luzxywgc54 mm[Hg]Hiren Sena MD Work Phone: [facility]12-08-2022 13:49-0500Heart rate75 /min Hiren Sena MD Work Phone: [facility]12-08-2022 13:49-1669MtZ3% (BldA) [Mass fraction]97 %Hiren Sena MD Work Phone: [facility]12-08-2022 13:49-0500Systolic blood wfoopozj875 mm[Hg]Hiren Sena MD Work Phone: [facility]09-16-2022 15:10-0400Body cawzvu10.58 kgBill Tuttle MD Work Phone: [facility]09-16-2022 15:10-0400Diastolic blood gwveubzv59 mm[Hg]Bill Tuttle MD Work Phone: [facility]09-16-2022 15:10-0400Heart rate72 /min Bill Tuttle MD Work Phone: [facility]09-16-2022 15:10-2009NmK6% (BldA) [Mass fraction]98 %Bill Tuttle MD Work Phone: [facility]09-16-2022 15:10-0400Systolic blood resclhxy663 mm[Hg]Bill Tuttle MD Work Phone: [facility]08-04-2022 14:44-0400Body kwosjq859.9 cmAarelis Tuttle MD Work Phone: [facility]08-04-2022 14:44-0400Body .45 kgBill Tuttle MD Work Phone: [facility]08-04-2022 14:44-0400Diastolic blood ywnagesz67 mm[Hg]Bill Tuttle MD Work Phone: [facility]08-04-2022 14:44-0400Heart rate70 /min Bill Tuttle MD Work Phone: [facility]08-04-2022 14:44-0400Respiratory rate 18 /minBill Tuttle MD Work Phone: [facility]08-04-2022 14:44-0648RdB2% (BldA) [Mass fraction]98 %Bill Tuttle MD Work Phone: [facility]08-04-2022 14:44-0400Systolic blood mm[Hg]Bill Tuttle MD Work Phone: [facility]07-29-2022 10:27-0400Body zeszrx739.9 cmPolina Rogers MIX MAKER.[facility] Work Phone: [facility]07-29-2022 10:27-0400Body bniufi93.72 kgBarbara Mccloud MIX MAKER.[facility] Work Phone: [facility]07-29-2022 10:270400Diastolic blood lnzpnauu49 mm[Hg]Barbara Mccloud MIX MAKER.[facility] Work Phone: [facility]07-29-2022 10:0400Heart rate56 /min Barbara Mccloud MIX MAKER.[facility] Work Phone: [facility]07-29-2022 10:27-0400Systolic blood whowmigb485 mm[Hg]Barbara Mccloud APRN.[facility] Work Phone: [facility]01-19-2022 14:04-0500Body gnmfua725.88 cmKi E Ye Work Phone: 1(130) 336-1093644-7756QR-Hbemn [facility] DO Work Phone: 1(243) 839-404801-19-2022 14:04-0500Body mass index (BMI) [Ratio] 27.53 kg/m2Kitrish E Ye Work Phone: 1(949) [phone]-Aeyub [facility] DO Work Phone: 1(365) 483-676801-19-2022 14:04-0500Body surface area Derived from formula2.14 m2Kim E Ye Work Phone: 1(270) [phone]-Uwxhs [facility] DO Work Phone: 1(158) 682-773701-19-2022 14:04-0500Body tduoin01.08 kgKim E Ye Work Phone: 1(444) [phone]-Zkcnb [facility] DO Work Phone: 1(120) 635-437001-19-2022 14:04-0500Diastolic blood ajrsofzx58 mm[Hg] Sedrick Ye Work Phone: 1(923) [phone]-Vwzwp [facility] DO Work Phone: 1(382) 841-439701-19-2022 14:04-0500Heart rate95 /minKitrish Ye Work Phone: 1(622) [phone]-Cfkcu [facility] DO Work Phone: 1(496) 320-901401-19-2022 14:04-0500Systolic blood nurzrztx247 mm[Hg] Sedrick Ye Work Phone: 1(198) [phone]-Kglts [facility] DO Work Phone: 1(578) 628-426511-02-2021 13:28-0400Diastolic blood mm[Hg] Sedrick Ye Work Phone: 1(526) [phone]-Debjb [facility] DO Work Phone: 1(340) 442-198311-02-2021 13:28-0400Systolic blood tntatkgm667 mm[Hg] Sedrick Ye Work Phone: 1(514) [phone]-Ltrsy [facility] DO Work Phone: 1(231) 183-113711-02-2021 13:06-0400Body caswpg683.88 cmKim Sarabjit Ye Work Phone: 1(692) [phone]-Dakss [facility] DO Work Phone: 1(161) 468-248411-02-2021 13:06-0400Body mass index (BMI) [Ratio] 27.94 kg/m2Kitrish Ye Work Phone: 1(203) [phone]-Itifn [facility] DO Work Phone: 1(628) 137-376911-02-2021 13:06-0400Body surface area Derived from formula2.16 m2Kitrish Ye Work Phone: 1(750) [phone]-Yzmxw [facility] DO Work Phone: 1(918) 542-421011-02-2021 13:06-0400Body rtboem69.44 kgKim Sarabjit Ye Work Phone: 1(396) [phone]-Mdqdk [facility] DO Work Phone: 1(186) 554-864011-02-2021 13:06-0400Diastolic blood lmxeunbw537 mm[Hg]Sedrick Ye Work Phone: [phone]-Dwlyj [facility] DO Work Phone: 1(303) 188-277711-02-2021 13:06-0400Heart rate92 /minKitrish Ye Work Phone: [phone]-Mysum [facility] DO Work Phone: 1(726) 305-910011-02-2021 13:06-0400Systolic blood bhnmimqp973 mm[Hg] Sedrick Ye Work Phone: [phone]-Yfgls [facility] DO Work Phone: Encounters Encounter DateEncounter [facility] ProviderFacilityStart: 06-24-2025 End: 75-11-2050Tgzdgcphu Result EncounterGeneric External Data ProviderNOMS External Department UnsolicitedStart: 06-24-2025 End: 18-05-8515Pfdruklrm Result EncounterGeneric External Data ProviderNOMS External Department UnsolicitedStart: 06-13-2025 End: 52-32-0459lmigluuhowJZCCO R WATTARFacility:[facility]art: 06-08-2025 End: 39-09-0138Jebwzjrdg Result EncounterGeneric External Data ProviderNOMS External Department UnsolicitedStart: 06-08-2025 End: 90-78-8279Vnckfuido Result EncounterGeneric External Data ProviderNOMS External Department UnsolicitedStart: 79-38-1717Dhzwrzqxwa RecurringChristian Carlos II [facility] [place] [facility] Work Phone: Start: 05-27-2025 End: 86-29-8681qsnefirjcxKwyjlRed CHEUNG Work Phone: [facility] Work Phone: Start: 05-27-2025 End: 12-93-3044Qsdzhza encounter procedureChristian Carlos II [facility] Work Phone: Start: 05-26-2025 End: 16-03-3922Flvhyiehg Result EncounterGeneric External Data ProviderNOMS External Department UnsolicitedStart: 05-26-2025 End: 46-07-3901Jgflwmisb Result EncounterGeneric External Data ProviderNOMS External Department UnsolicitedStart: 05-19-2025 End: 07-83-5959Vpgtznjbq Result EncounterGeneric External Data ProviderNOMS External Department UnsolicitedStart: 05-19-2025 End: 78-83-7627Atzkqjhdt Result EncounterGeneric External Data ProviderNOMS External Department UnsolicitedStart: 05-16-2025 End: 62-33-8074Vgeotombn Result EncounterGeneric External Data ProviderNOMS External Department UnsolicitedStart: 05-16-2025 End: 43-97-2411Ynugqakoe Result EncounterGeneric External Data ProviderNOMS External Department UnsolicitedStart: 77-58-7856Hmgatpfnxl RecurringChristian Carlos II [facility] Work Phone: Start: 64-71-2763Xwx-patient / Non-visitChristian Carlos II [facility] Work Phone: Start: 05-13-2025 End: 03-24-9363ruqhhanwioDdofz Hemmer [facility] Work Phone: [facility] Work Phone: Start: 05-13-2025 End: 32-43-8884Ziqxrcx encounter procedureGracie Daily NP-C-[facility] [place] [facility] Work Phone: Start: 05-12-2025 End: 94-65-1022Bpvqjopf Result EncounterChristian Carlos DO Work Phone: noms External Department UnsolicitedStart: 05-12-2025 End: 30-02-2795Bezkecaz Result EncounterChristian Carlos DO Work Phone: noms External Department UnsolicitedStart: 05-09-2025 End: 99-91-2144Vaipooari Result EncounterGeneric External Data ProviderNOMS External Department UnsolicitedStart: 05-09-2025 End: 90-27-1568Dkfwqdype Result EncounterGeneric External Data ProviderNOME External Department UnsolicitedStart: 04-04-2025 End: 95-87-8810Beineya encounter procedureIta Tuttle MD Work Phone: CardiologyComment on above:PAF (paroxysmal atrial fibrillation) (HCC) (Primary Dx); Atrial fibrillation, persistent (HCC); Benign essential HTN; Hypertension, unspecified type; Tachycardia induced cardiomyopathy (HCC)Start: 04-04-2025 End: 71-27-2993aigrpueuznFIJVP R WATTARFacility:[facility] Centertart: 03-17-2025 End: 05-08-8425Puyxfphhr encounterLinda PIEDRA Work Phone: noms CI FMStart: 41-47-4697Qosgjidwhy RecurringChristian [facility]New [facility] Work Phone: Start: 03-04-2025 End: 12-03-3560hxkrrwxbfwFiqqx Hemmer [employer] C[employer]TER-C Work Phone: [facility] Work Phone: Start: 03-04-2025 End: 56-88-8999Zmkreig encounter procedureChristian Carlos [facility] Work Phone: Start: 03-01-2025 End: 54-17-5859Uxgakx flowsKirt PIEDRA Work Phone: noMS CI FMStart: 03-01-2025 End: 85-16-1186Iwbcaw flowsKirt PIEDRA Work Phone: noMS CI FMStart: 03-01-2025 End: 39-65-3846Wittrqj encounter statusLinda PIEDRA Work Phone: [facility] Work Phone: Start: 03-01-2025 End: 80-33-7646Umllaqam preventive med est patient 65yrs& olderLinda PIEDRA [...] for malignant neoplasm of prostateStart: 03-01-2025 End: 25-02-7977mnalacepciPGSMHRed Rivera AvailableStart: 02-19-2025 End: 65-11-7182lrnwszkkvxSSSMercer County Community Hospital Work Phone: Start: 02-19-2025 End: 38-27-5073Vocazpe encounter procedureHannah Quarles [facility] [place] Work Phone: Start: 02-10-2025 End: 74-92-5637Rugyldfm Result EncounterChristian Carlos DO Work Phone: noms External Department UnsolicitedStart: 02-10-2025 End: 42-94-4194Avonrszw Result EncounterChristian Carlos DO Work Phone: noms External Department UnsolicitedStart: 02-10-2025 End: 96-00-0133Gdxovylsd to same day surgery centerChristian Carlos II DO-CT Scan [facility] [place] Work Phone: Start: 02-10-2025 End: 94-68-3288fjzodfnoxcJmdjv HemmerFacility:[facility] Start: 01-21-2025 End: 30-14-7845dfpqppnfrqUKRMercer County Community Hospital Work Phone: Start: 01-21-2025 End: 95-13-1860Reajcff encounter procedureP[facility] [place] [facility] Work Phone: Start: 01-13-2025 End: 35-58-4012Pbuworxy Result EncounterTimmoise Carlos DO Work Phone: noms External Department UnsolicitedStart: 01-13-2025 End: 65-08-7253Kwcrbmmc Result EncounterTimmoise Carlos DO Work Phone: noms External Department UnsolicitedStart: 01-01-2025 End: 03-83-3821ExiqwrAxfom R Wattar MD Work Phone: CardiologyComment on above:Refill RequestStart: 12-09-2024 End: 13-65-3133Pexcnjp encounter procedureEulalio Martinez DO Work Phone: NOMS NB ORTHOComment on above:S/P right knee arthroscopy (Primary Dx)Start: 12-09-2024 End: 86-43-8716agnzgecfybTZGRC A BROWNNot AvailableStart: 12-09-2024 End: 16-11-9989Nnylxq flowsNoelle Martinez DO Work Phone: NOMS ORTHOStart: 12-09-2024 End: 69-99-6726Pfbvxa Matt Martinez DO Work Phone: NOMS ORTHOStart: 11-30-2024 End: 10-78-1328ihsahvdkyuYgm E Knight MD Work Phone: [facility] Work Phone: Start: 11-30-2024 End: 73-42-8394Mikiuwln Ezequiel Ye MD Work Phone: [facility] [address] Work Phone: start: 90-30-2681Dvjfcktauw Joanne Ye MD Work Phone: [facility] Work Phone: Start: 11-09-2024 End: 81-81-1483ygxfyvgzzsDERUQ M HEMMERNot AvailableStart: 10-28-2024 End: 09-51-3963qjwlnscagxONWWY A BROWNNot AvailableStart: 09-30-2024 End: 93-12-1072Lyehluf encounter procedureEulalio Martinez DO Work Phone: NOMS NB ORTHOComment on above:Left hand pain (Primary Dx); S/P right knee arthroscopy; Right knee pain, unspecified chronicityStart: 09-30-2024 End: 18-56-2068eeimlcaadePYELT A BROWNNot AvailableStart: 09-30-2024 End: 88-26-7049lzbtdsgtvkDCDLA A BROWNNot AvailableStart: 09-27-2024 End: 04-25-6653OjucwsMmnyz R Wattar MD Work Phone: CardiologyComment on above:Refill RequestStart: 09-21-2024 End: 28-38-5369wxktiwskmcLPAEQ R WATTARFacility:[facility] HospitalStart: 09-21-2024 End: 79-12-6717Pwwpwjw encounter procedureSisma Armstrong PA-C Work Phone: CardiologyComment on above:Primary hypertension (Primary Dx); PAF (paroxysmal atrial fibrillation) ([facility]); Coronary artery calcificationStart: 09-15-2024 End: 61-81-1177Uptmkm outpatient visit 15 minutesLinda PIEDRA Work Phone: NOMS CI FMComment on above:Acute non-recurrent maxillary sinusitis (Primary Dx)Start: 09-15-2024 End: 03-90-3368irutusmjzoXXBLRRed Rivera AvailableStart: 08-24-2024 End: 40-42-6276Hhikjv flowsheetEulalio Jojo Mahamed DO Work Phone: [phone] ORTHOStart: 08-24-2024 End: 24-00-8586Fahusq flowsheetEulalio Martinez DO Work Phone: [phone] ORTHOStart: 08-24-2024 End: 34-91-0150Dtiznmq encounter procedureEulalio Martinez DO Work Phone: [phone] NB ORTHOComment on above:S/P right knee arthroscopy (Primary Dx)Start: 08-24-2024 End: 83-85-8488prmkgrrbicNJSDN A BROWNNot AvailableStart: 07-30-2024 End: 17-92-1920emltydvfqeNMNNJ A BROWNNot AvailableStart: 07-29-2024 End: 44-32-1960gppsrqgijuHWUTN A BROWNNot AvailableStart: 07-28-2024 End: 78-31-5160pyktxhtmpyFTSQL A BROWNNot AvailableStart: 07-28-2024 End: 76-90-7606Sfiibz Mitchmoise Guillermo Carlos DO Work Phone: NOOM External Department UnsolicitedStart: 07-27-2024 End: 65-68-7984Zdrysuo encounter procedureEulalio Jojo Mahamed DO Work Phone: NOMS NB ORTHOComment on above:Pre-op testingStart: 07-27-2024 End: 46-74-3931Ywmpwzz encounter statusEulalio Jojo Mahamed DO Work Phone: [facility] Work Phone: Start: 07-27-2024 End: 41-69-7390yfxiyrdjqxQOCFB Jojo BROWNNot AvailableStart: 07-27-2024 End: 22-63-6656Vjkdqb flowsheetEulalio Martinez DO Work Phone: NOMS ORTHOStart: 07-27-2024 End: 91-99-8501Yshfyy flowshectorEulalio Jojo Mahamed DO Work Phone: NOMS ORTHOStart: 07-24-2024 End: 75-24-6874hjwoeeicmzEMQ STAFFFacility:[facility] Start: 06-29-2024 End: 88-15-8865Dniashzzp Result EncounterLinda PIEDRA Work Phone: NOMS External Department UnsolicitedStart: 06-29-2024 End: 33-51-5859Hkseufjyt Result EncounterLinda PIEDRA Work Phone: NOMS External Department UnsolicitedStart: 06-29-2024 End: 09-21-7287VumrrmNujnrDoris Tuttle MD Work Phone: CardiologyComment on above:Refill RequestStart: 06-29-2024 End: 10-83-7182Bjhrqtueh encounterLinda PIEDRA Work Phone: NOMS CI FMStart: 06-25-2024 End: 86-78-6827Pytgxvaer encounterKayla Rose ACCOUNT OFFICER Work Phone: NOMS CI FMStart: 06-15-2024 End: 83-12-3100Spychbm encounter Narcisa Martinez DO Work Phone: NOMS NB ORTHOComment on above:Tear of medial meniscus of right knee, current, unspecified tear type, subsequent encounter (Primary Dx) Start: 06-15-2024 End: 62-04-8355iiicuvshfqNFSJR A BROWNNot AvailableStart: 06-15-2024 End: 76-78-7932Sazlqq flowsNoelle Uribe Mahamed DO Work Phone: NOMS ORTHOStart: 06-15-2024 End: 21-05-9004Qknfkj flowsNoelle Martinez DO Work Phone: NOMS ORTHOStart: 06-11-2024 End: 97-39-5831Zkzdoy follow up visit related to original Pari Bucio MD Work Phone: NOMS ST GENSComment on above:Screening for malignant neoplasm of colon (Primary Dx)Start: 06-11-2024 End: 13-77-1464nrpbnbzqitNYOKQW VARGAS VNot AvailableStart: 06-10-2024 End: 22-23-6360Bjbgtp outpatient visit 25 minutesSedrick Lyons CANVAS CUTTER Work Phone: NOMS CI FMComment on above:Strain of thoracic back region (Primary Dx); Muscle spasmStart: 06-10-2024 End: 94-90-8259lvrwprakwhAWB C MILLERNot AvailableStart: 06-10-2024 End: 44-25-7530Knuest Dayan Lyons CANVAS CUTTER Work Phone: NOMS CI FMStart: 06-10-2024 End: 76-03-9293Nikxoj krishnaSedrick Ethan Lyons CANVAS CUTTER Work Phone: noms CI FMStart: 05-21-2024 End: 91-18-7881Jbmccj outpatient new 45 minutesGrace Bucio MD Work Phone: noms ST GENSComment on above:History of colon polyps (Primary Dx); Screening for malignant neoplasm of colonStart: 05-21-2024 End: 85-71-9375icknltpwrcHCWOMH VARGAS VNot AvailableStart: 04-23-2024 End: 16-55-4647frmryztbxpKS Sedrick Whipple Ye Work Phone: [facility] Work Phone: Start: 04-23-2024 End: 20-30-7330Sbfnlsk encounter procedure Sedrick Cassi Work Phone: [facility] Work Phone: Start: 04-23-2024 End: 71-73-9703Uopltunk Result EncounterIrene Solares CANVAS CUTTER Work Phone: noms External Department UnsolicitedStart: 04-23-2024 End: 72-07-3307Uxlnemzg Result EncounterIrene Solares CANVAS CUTTER Work Phone: noms External Department UnsolicitedStart: 04-23-2024 Registered RecurringMD Sedrick Ye Work Phone: [facility] [place] [facility] Work Phone: Start: 04-20-2024 End: 57-55-3362Kwfqilzt Result EncounterChristian Carlos DO Work Phone: noms External Department UnsolicitedStart: 04-20-2024 End: 45-28-2056Nyjjgmmk Result EncounterChristian Carlos DO Work Phone: noms External Department UnsolicitedStart: 02-29-2024 ambulatoryIta Tuttle MD Work Phone: CardiologyStart: 66-95-8307Pbmfldo encounter procedure Ita Tuttle MD Work Phone: CardiologyComment on above:FatigueStart: 02-12-2024 ambulatoryIta Tuttle MD Work Phone: CardiologyStart: 22-52-2483Rlmwtdy encounter procedure Ita Tuttle MD Work Phone: CardiologyComment on above:VitaminsStart: 01-30-2024 End: 46-44-7599Mijrfgc encounter procedureIta Tuttle MD Work Phone: CardiologyComment on above:Paroxysmal atrial fibrillation (HCC) (Primary Dx); Atrial fibrillation, persistent (HCC); Benign essential HTN; Hypertension, unspecified type; Prescription refill; Tachycardia induced cardiomyopathy (HCC); Aortic root dilatation (HCC)Start: 01-23-2024 End: 92-81-7311lekywyczagGM Sedrick Ye Work Phone: [facility] Work Phone: Start: 01-23-2024 End: 14-51-4475Stzslst encounter procedureMD Sedrick Ye Work Phone: [facility] Work Phone: Start: 15-77-3801Yuwgaqbzdm RecurringMD Sedrick Ye Work Phone: [facility] Work Phone: Start: 77-96-3888TetdgoYfccb R Wattar MD Work Phone: CardiologyComment on above:Refill RequestStart: 97-30-3842Qdzwfymju encounterIta Tuttle MD Work Phone: CardiologyStart: 07-31-2023 End: 37-86-6366Pcspadw encounter procedureIta Tuttle MD Work Phone: CardiologyComment on above:Hypertension, unspecified type (Primary Dx); Aortic root dilatation (HCC)Start: 06-02-2023 End: 34-76-6713wxpdphibdzIzksu M. LueFacility:EU NorwalkStart: 04-14-2023 End: 66-58-3773mylcxpbgvqGwgln M. LueFacility:CD:[id number]: 04-09-2023 End: 58-81-4105tmopcxkkjeEFY KNIGHTFacility:BAYLStart: 01-27-9696SoisdhImrbbq Godoy MIX MAKER.MIXING TANK OPERATOR, DNP Work Phone: CardiologyComment on above:Refill RequestStart: 99-58-4779sytomqpzllCjxnbAlvaro Tuttle MD Work Phone: CardiologyComment on above:Eliquis and Aspirin questionStart: 01-21-2023 End: 24-37-2464aaxflqeabiOKRSO D HIGHLANDERFacility:D0Tezgc: 12-27-2022 End: 95-90-2402qrxdpyulsoMI SEDRICK YE .Facility:O4Bhlch: 12-25-2022 End: 36-49-6957Nsgrntz encounter procedureIta Tuttle MD Work Phone: CardiologyComment on above:Hypertension, unspecified type (Primary Dx)Start: 12-24-2022 End: 30-56-2421rbdwavgrsfBGXMX D CITY HOSPITALANDERFacility:X7Iilew: 11-16-2022 End: 73-39-5108umgqjtqqvrOYXDFCDJ EBERLYFacility:V7Ssmdw: 93-29-1470Zqvjuaynj encounterHiren Sena MD Work Phone: CardiologyComment on above:Patient QuestionStart: 10-17-2022 End: 42-84-9250oqofxdumlpKJEXI R WATTARFacility:[facility] HospitalStart: 10-17-2022 End: 74-09-1931Bauexwv encounter procedureIta Tuttle MD Work Phone: CardiologyComment on above:Hypertension, unspecified type (Primary Dx)Start: 72-39-1898iveoyaekucGdhlaAlvaro Tuttle MD Work Phone: CardiologyComment on above:NifedipineRefill Request Start: 94-86-5754YmbmvrSckirb Godoy APRN.MIXING TANK OPERATOR, DNP Work Phone: CardiologyComment on above:Refill RequestStart: 10-09-2022 End: 45-66-2357dzfmkkwhqzAO SEDRICK YE .Facility:C5Tpbbw: 76-55-8169Yjyosc Ita Tuttle MD Work Phone: CardiologyComment on above:Refill RequestStart: 09-13-2022 End: 75-70-6251Izrnijb encounter procedureIta Tuttle MD Work Phone: CardiologyComment on above:Hypertension, unspecified type (Primary Dx)Start: 02-91-1121Ghokqglir encounterIta Tuttle MD Work Phone: CardiologyComment on above:Patient UpdateResultsStart: 08-01-2022 End: 38-58-8297Tgxgasn encounter procedureHiren Sena MD Work Phone: CardiologyComment on above:Atrial fibrillation, persistent (HCC) (Primary Dx); Hypertension, unspecified type; DMITRY (obstructive sleep apnea); Benign essential HTN; S/P ablation of atrial fibrillation; Encounter for current long-term use of anticoagulantsStart: 11-91-4556Bwyjrgpefk TTAdams Sena MD Work Phone: [facility] DepartmentStart: 51-04-3646Euxzgqqbi PlanTvenecia Sena MD Work Phone: [facility] MAINStart: 37-67-9905lyuhltmdgv Hiren Sena MD Work Phone: CardiologyComment on above:portable EKG transmitter machineStart: 05-10-2022 End: 89-12-9102Rqboqaz encounter procedureIta Tuttle MD Work Phone: CardiologyComment on above:Tachycardia induced cardiomyopathy (HCC) (Primary Dx)Start: 50-47-9440Ffvtrvcqwb Jonathan Sena MD Work Phone: [facility] DepartmentStart: 38-13-9437Omlaqvzvfghulam Sena MD Work Phone: [facility] MAINStart: 44-10-3021Fcebnsdutx Jonathan Sena MD Work Phone: [facility] DepartmentStart: 94-37-6934Ybqsjgmoxghulam Sena MD Work Phone: [facility] MAINStart: 91-19-1234tfxnphaptf Bridget LyonPulmonary MedicineStart: 50-84-5119Xntjcshwwn Jonathan Sena MD Work Phone: [facility] DepartmentStart: 52-31-0904Yvrsfimizghulam Sena MD Work Phone: [facility] MAINStart: 30-71-2802wwhhlzekpz Babrara Mccloud APRN.CNP Work Phone: CardiologyComment on above:update on weaning off SotalolEKG transmission machineStart: 93-11-8174D-mail encounter from caregiver Barbara Toledohardt MERLY.MIXING TANK OPERATOR Work Phone: [facility] MAINStart: 51-38-8870zgcjyfedqo Hiren Sena MD Work Phone: [facility]ENTERStart: 38-27-9662Xdbgqo-up encounterHiren Sena MD Work Phone: CardiologyComment on above:Sotalol follow upStart: 03-28-2022 End: 90-70-7242Fpzpsbm encounter Junior Tuttle MD Work Phone: CardiologyComment on above:Atherosclerosis (Primary Dx); Ascending aorta dilatation (HCC); Tachycardia induced cardiomyopathy (HCC)Start: 78-45-7434ryxpvcxowzRxkhtdycr Manuel [place] Work Phone: Pulmonary MedicineStart: 80-60-5757qwzvmgbrpkSidmzs Engelhardt APRN.SADI Work Phone: CardiologyComment on above:Ct scan resultsecho results Start: 33-00-9136B-mail encounter from caregiverBarbara Mccolud APRN.SADI Work Phone: [facility] MAINStart: 03-22-2022 End: 32-06-0615Ckhcaeu encounter procedureNagimagda BautistaRogerslizbeth MORELAND.SADI Work Phone: CardiologyComment on above:Atrial fibrillation, persistent (HCC) (Primary Dx); Lung nodule; DMITRY (obstructive sleep apnea)Start: 03-22-2022 End: 43-52-4086Rgljdpzqan hospital visit by physicianApril Li (I-Stat) Work Phone: RadiologyComment on above:Persistent atrial fibrillation (HCC) [I48.19]Start: 38-70-1946Vdpcholzch Jonathan Sena MD Work Phone: [facility] DepartmentStart: 03-43-7287Jpdeupafs Mercedes Sena MD Work Phone: [facility] MAINStart: 08-08-2814Acbheaffnf Jonathan Sena MD Work Phone: [facility] DepartmentStart: 65-08-6021Rzpmkdxsktino Sena MD Work Phone: [facility] MAINStart: 02-35-2220Ptrzzqmcgr Jonathan Sena MD Work Phone: [facility] DepartmentStart: 97-91-6131Qwzopkwblghulam Sena MD Work Phone: [facility] MAINStart: 99-15-0716Shaneqzhlu Jonathan Sena MD Work Phone: [facility] DepartmentStart: 70-97-5570Vbgnzbhxp Mercedes Sena MD Work Phone: [phone] [facility] MAINStart: 54-96-6927Boyrmqxzqm Jonathan Sena MD Work Phone: [phone] DepartmentStart: 00-29-7475Vzjypkxxgghulam Sena MD Work Phone: [phone] [facility] MAINStart: 69-41-6318Rwsxqlguvs Jonathan Sena MD Work Phone: [phone] DepartmentStart: 82-21-7612Fqtynqefktino Sena MD Work Phone: [phone] [facility] MAINStart: 37-10-8211Kphijeuarg Jonathan Sena MD Work Phone: [phone] DepartmentStart: 82-97-0250Mluihqlzitino Sena MD Work Phone: [phone] [facility] MAINStart: 74-85-9912Daigdzlyhu Jonathan Sena MD Work Phone: [phone] DepartmentStart: 88-48-2571Vsgabzlhnghulam Sena MD Work Phone: [phone] [facility] MAINStart: 64-74-2554Tqznplirhw Jonathan Sena MD Work Phone: [phone] DepartmentStart: 50-50-9652Cvtkquzlb Mercedes Sena MD Work Phone: [phone] [facility] MAINStart: 93-44-7115Ntlfflyvuy Jonathan Sena MD Work Phone: [phone] DepartmentStart: 92-79-0739Hshyhganaghulam Sena MD Work Phone: [phone] [facility] MAINStart: 80-55-7027Cwreiwhyqj Jonathan Sena MD Work Phone: [facility] DepartmentStart: 62-65-2646Coqllrdsfamanda Sena MD Work Phone: [facility] MAINStart: 91-86-0885HO Get Medical AdviceIta Tuttle MD Work Phone: CardiologyComment on above:Mail order doesn t have prescriptionsStart: 02-95-5062Bkjpkkfmlx Jonathan Sena MD Work Phone: [facility] DepartmentStart: 71-65-9594Ehuytptiqamanda Sena MD Work Phone: [facility] MAINStart: 61-42-7806QenijwRyxud R Wattar MD Work Phone: Internal MedicineComment on above:Refill RequestStart: 39-58-2079AajjjpJmmoxx J Dresing MD Work Phone: CardiologyComment on above:Refill RequestFurosemide needed before vacation tomorrowStart: 31-79-3701Dkvgbtbngd Jonathan Sena MD Work Phone: [facility] DepartmentStart: 86-88-1930Bsfvqcrcoamanda Sena MD Work Phone: [facility] MAINStart: 99-70-8539Vkbamy Only Foreigndiogo Martinez APRN.MIXING TANK OPERATOR Work Phone: cardiologyComment on above:Persistent atrial fibrillation (HCC)Start: 68-92-1293Bgmuhjkzhu Jonathan Sena MD Work Phone: [facility] DepartmentStart: 17-74-3401Nenzylyqbamanda Sena MD Work Phone: [facility] MAINStart: 12-50-5396ghfodruues Hiren eSna MD Work Phone: CardiologyComment on above:Resent FMLA paperworkStart: 73-82-8556pbsspfhqcyTjfshb J Dresing MD Work Phone: CardiologyComment on above:Return to work dateStart: 86-11-2595Rsfvrvezc encounterHiren Sena MD Work Phone: CardiologyComment on above:Post Dc Program Call - Needs Attnchest discomfort after ablationStart: 52-02-9676gbyhcypioiXtloru J Dresing MD Work Phone: CardiologyComment on above:Transmitter (3 months) Start: 04-72-2097Hcomtmxqxc TTMTvenecia Sena MD Work Phone: [facility] DepartmentStart: 16-82-4209Ubrmqslfz PlanTvenecia Sena MD Work Phone: [facility] MAINStart: 47-00-8504hjmehwfmxj Hiren Sena MD Work Phone: CardiologyComment on above:Patient Education (PVI) Start: 06-26-6102Bexcnzl encounter procedureKim E Ye Work Phone: [phone]-Vqdml [facility] [address] DO Work Phone: Start: 78-16-5438Exxbroczb encounterKim E Ye Work Phone: [phone]-Nbrag [facility] [address] DO Work Phone: Start: 10-43-2122Zotgwzw encounter procedureKim E Ye Work Phone: [phone]-Ebsnb [facility] [address] DO Work Phone: Start: 68-16-1989Hwmus UpdateKim E Ye Work Phone: [phone]-Qasgk [facility] [address] DO Work Phone: Start: 24-56-4341Xzqaah outpatient visit 25 minutesKim E Ye Work Phone: [phone]-Snwfd [facility] [address] DO Work Phone: Procedures DateProcedureProcedure DetailPerforming ClinicianStart: 27-23-6902EHW CBC WITH AUTO DIFFGeneric External Data ProviderStart: 08-05-0094TDA LDHGeneric External Data ProviderStart: 42-26-7262ZFO CMP (CMP) (FOR REMOTE [facility] USE)Generic External Data ProviderStart: 86-77-7642BKR CBC WITH AUTO DIFFGeneric External Data ProviderStart: 29-91-6767IMM CBC WITH AUTO DIFFGeneric External Data Provider Start: 62-25-1624PWW CBC WITH AUTO DIFFGeneric External Data ProviderStart: 41-04-0034Ovoacfij screenKaren HemmerComment on above:Result Comment: PERFORMED BY: [facility] [place] [address] PATHOLOGIST STOCK TRACER DANIELLE QUINONES M.D.Start: 75-00-5765Ynfqi of haptoglobin quantitativeTimmoise Carlos DO Work Phone: Start: 91-88-1045FF scan of spleenKaren Hemmer CANVAS CUTTER-C Work Phone: Start: 75-48-4209GUT SED RATEGeneric External Data ProviderStart: 51-21-1615Kmm routine ecg w/least 12 lds i&r onlyCcf Provider Start: 09-64-4875UXTBKOWEV REQUEST FOR LAB CORPChristian Carlos DO Work Phone: Start: 90-07-9503KOCDQCEFEHM PROFILEChristian Carlos DO Work Phone: Start: 00-74-5917Wmtxjxvouftdj metabolic panelChristian Carlos DO Work Phone: Start: 83-79-8106Lrfhc immunofixationComment on above: No monoclonality detected.Start: 10-11-0374Ysnv marrow samplingStart: 01-13-2025 Comprehensive metabolic panelChristian Carlos DO Work Phone: Start: 21-63-2088XNHXVOYLJRYPH NEOGENOMICChristian Carlos DO Work Phone: Start: 00-02-9484Qhemkxafytjhdc aspir&/inj major jt/bursa w/o usEulalio Martinez DO Work Phone: Start: 09-30-2024 End: 95-24-5577Whlsq hand minimum 3 viewsEulalio Martinez DO Work Phone: Start: 92-56-0956Hfjdkfjv blood count with white cell differential, automatedTimmoise Carlos DO Work Phone: Start: 76-39-7587Knnsvihtssflx metabolic panelChristian Carlos DO Work Phone: Start: 89-33-0890PKKWZSJG STATUS REPORTTimmoise Carlos DO Work Phone: Start: 79-85-4518PG THORACIC SPINE 3VLinda Jansen PA Work Phone: Start: 89-76-3101QXTXQRA D 25 HYDROXY,TOT+D2+D3Mary García Solares CANVAS CUTTER Work Phone: Start: 67-74-8582Fqhcbtqoqhdzs metabolic panelTimmoise Carlos DO Work Phone: Start: 34-76-6937Gpm routine ecg w/least 12 lds i&r onlyCcf ProviderStart: 56-15-0809PCB screeningDR SEDRICK YE .Comment on above: Performed By: #### [facility] #### [facility] [address] [place] [address] Dr. Gautam VanStart: 26-54-0333Lgwgc 1996 panel - Serum or PlasmaBill Tuttle MD Work Phone: Start: 83-75-9837Smj routine ecg w/least 12 lds i&r onlyCcf ProviderStart: 91-56-0892TADWOATLXF TRANS TELE MEASUREThomas Guillermo Sena MD Work Phone: Start: 84-00-3812SOWLDXIPMK TRANS TELE MEASUREThomas Guillermo Sena MD Work Phone: Start: 69-45-4113YYZJNVICJF TRANS TELE MEASUREThomas Guillermo Sena MD Work Phone: [phone]: 34-85-0217WTCHKXWBZO TRANS TELE MEASUREThomas Guillermo Sena MD Work Phone: [phone]: 49-10-4342Dr heart contrast eval cardiac structure&morphNolan Juan MIX MAKER.MIXING TANK OPERATOR Work Phone: [phone]: 83-85-3738Buodhfmxfe [Mass/volume] in Serum or PlasmaCcf ProviderStart: 05-99-8644XFMFILLBDP TRANS TELE MEASUREThomas Guillermo Sena MD Work Phone: [phone]: 32-87-0522BFAXRQGWRW TRANS TELE MEASUREThomas Guillermo Sena MD Work Phone: [phone]: 21-32-9462ZRIVRKFSCA TRANS TELE MEASUREThomas Guillermo Sena MD Work Phone: [phone]: 79-89-8958ENIZKCVUTL TRANS TELE MEASUREThomas Guillermo Sena MD Work Phone: [phone]: 84-55-0288RNRCTWERSV TRANS TELE MEASUREThomas Guillermo Sena MD Work Phone: [phone]: 08-18-1629KALZJPEGBI TRANS TELE MEASUREThomas Guillermo Sena MD Work Phone: [phone]: 30-03-8195SARUJGMBIR TRANS TELE MEASUREThomas Guillermo Sena MD Work Phone: [phone]: 27-97-8180OGCUMAQFTM TRANS TELE MEASUREThomas Guillermo Sena MD Work Phone: [phone]: 85-59-9810OIRTZHHIEH TRANS TELE MEASUREThomas Guillermo Sena MD Work Phone: [phone]: 34-24-1330BPQNEUOAJN TRANS TELE MEASUREThomas Guillermo Sena MD Work Phone: [phone]: 99-65-8064FCZGDNOALD TRANS TELE MEASUREThomas Guillermo Sena MD Work Phone: [phone]: 21-95-0574GDBQFGFEYD TRANS TELE MEASUREThomas Guillermo Sena MD Work Phone: Start: 30-32-6698ICKYAICVVM TRANS TELE MEASUREThomas Guillermo Sena MD Work Phone: Start: 65-66-1953NOECNNVBNZ TRANS TELE MEASUREThomas Guillermo Sean MD Work Phone: Start: 94-15-1277CXMIGJLZBC TRANS TELE MEASUREThomas Guillermo Sena MD Work Phone: Start: 66-76-6720XwssknmpznamwsdzIktff: 10-02-2018 ColonoscopyChristian Carlos DO Work Phone: Total colonoscopySedrick Ye Work Phone: Comment on above:08/2009; Plan of Treatment DateCare ActivityDetailAuthorStart: 07-49-9743RDV Vaccine (1 - 1-dose 75+ series)RSV Vaccine (1 - 1-dose 75+ series)[facility]: 03-18[facility]2030 Prostate specific antigen measurementProstate Cancer Screening Discussion [facility]art: 75-79-6858Celmwztyl for malignant neoplasm of colonNOMS HealthcareStart: 90-10-0316Eduwrjcj ScreeningDiabetes ScreeningOhiohealth [facility] Start: 98-07-5378UAVHLCDS CANCER SCREENING DISCUSSIONPROSTATE CANCER SCREENING DISCUSSIONJ.W. Ruby Memorial Hospitaltart: 54-80-5638Kgnnltcb specific antigen measurement Prostate Cancer Screening DiscussionJ.W. Ruby Memorial Hospitaltart: 41-35-7019Pubae 1996 panel - Serum or PlasmaLipid ScreeningJ.W. Ruby Memorial Hospitaltart: 81-70-8317Zorfq panelLipid ScreeningJ.W. Ruby Memorial Hospitaltart: 37-48-0509LRBQO SCREENLIPID SCREEN [facility]tart: 94-14-1287JVKRBVUL CANCER SCREENING DISCUSSIONPROSTATE CANCER SCREENING DISCUSSIONJ.W. Ruby Memorial Hospitaltart: 23-31-8127Kugcdtgk Screening Diabetes ScreeningJ.W. Ruby Memorial Hospitaltart: 93-39-1940KPIUX SCREENLIPID SCREEN [facility]tart: 65-12-8973ROWEMBOV CANCER SCREENING DISCUSSIONPROSTATE CANCER SCREENING DISCUSSIONJ.W. Ruby Memorial Hospitaltart: 04-05-2026 End: 47-59-0244Dfpaoqw encounter wxkwwbguw72/12/2026 8:00 AM EDT Office Visit Cardiology [address] [place] [address] [place] [address] [place] [address] yearly follow upCardiologyComment on above:yearly follow up Start: 07-08-2026Medicare Annual Wellness (AWV)Medicare Annual Wellness (AWV) [facility] HealthcareStart: 53-67-5367NHYHHWWQ SCREENDIABETES SCREENOhiohealth [facility] Start: 02-35-2927Uaaitoau ScreeningDiabetes ScreeningJ.W. [facility] Memorial Hospitaltart: 55-55-6907BCCPAYVB SCREENDIABETES SCREENJ.W. [facility] Hospitaltart: 06-13-2025 End: 91-20-8784Jipwplx encounter ofidctups43/20/2025 10:30 AM EDT Office Visit Cardiology [address] [place], [place] [id number] PAF (paroxysmal atrial fibrillation) (HCC) [I48.0]CardiologyComment on above:PAF (paroxysmal atrial fibrillation) (HCC) [I48.0]Start: 81-97-9739WunpnzbdfAultman Hospitaltart: 03-89-6419PxmnygcwlAultman Hospitaltart: 04-25-2025 Influenza vaccinationLOGAN REG[facility]AL [facility]OS[facility]ITAL HealthcareStart: 04-04-2025 End: 81-86-0455Ozdtywu encounter vypmhazpf88/11/2025 2:30 PM EDT Office Visit Cardiology [address] [place] [address] [place] [address] [place] [address] Return in about 6 months (around 03/21/2025) for Please schedule appt with Dr. Tuttle in 6months.CardiologyComment on above:Return in about 6 months (around 03/21/2025) for Please schedule appt with Dr. Tuttle in 6 months.Start: 07-59-4872SDAMGLIL SCREENDIABETES SCREENJ.W. Ruby Memorial Hospitaltart: 03-01-2025 End: 52-86-5455Vowfssi encounter procedureNOMS CI FMComment on above:Arrived Start: 50-22-0551NzyxcimzcAultman Hospitaltart: 02-08-2025 End: 71-91-0180Drfezan encounter gfwwbwuyc02/17/2025 4:00 PM EDT Office Visit [facility] FM [address] [place] [address] Linda Jansen PA [address] [place] [address] [facility] CI FMStart: 12-09-2024 End: 62-67-7319Xqpczfi encounter qkiyvpwmx94/17/2025 3:45 PM EDT Office Visit [facility] ORTHO [address] [place] [address] Eulalio Martinez, DO [address] [place] [address] ArrivedNOMS NB ORTHOComment on above:ArrivedStart: 12-03-2024 DIABETES SCREENDIABETES SCREENJ.W. Ruby Memorial Hospitaltart: 10-28-2024 End: 42-37-6476Alukzzu encounter wflakvvma82/06/2025 3:45 PM EST Office Visit [facility] [address] [place] [address] Eulalio Martinez DO [address] [address] N[facility] NB ORTHOStart: 85-37-0382IKSAUAKG SCREENDIABETES SCREEN [facility]: 09-30-2024 End: 28-89-8372Yhxfqdb encounter /06/2025 3:30 PM EST Office Visit [facility] [address] [place] [address] Eulalio Martinez, DO [address] [place] [address] [facility] ORTHOStart: 95-93-5278Jsxeasm Directive Discussion Advance Directive DiscussionJ.W. Ruby Memorial Hospitaltart: 36-43-8839Hludzymllnmt Vaccine: 65+ Years (1 of 1 - PCV)Pneumococcal Vaccine: 65+ Years (1 of 1 - PCV) [facility] HealthcareStart: 08-24-2024 End: 92-99-9704Ifswyxn encounter procedureNOTHE REHABILITATION INSTITUTE ORTHOComment on above:Arrived Start: 08-03-2024 End: 96-81-8286ZYZ W Auto Differential panel - BloodCBC auto differential Lab Routine Pre-op testing Expected: 08/03/2024 (Approximate), Expires: 07/27/2025 [facility] Healthcare Work Phone: Comment on above:Expected: 08/03/2024 (Approximate), Expires: 07/27/2025Start: 08-03-2024 End: 84-74-3029Bicdgvcauwwum metabolic 2000 panel - Serum or PlasmaComprehensive metabolic panel Lab Routine Pre-op testing Expected: 08/03/2024 (Approximate), Expires: 07/27/2025[facility] HealthcareComment on above:Expected: 08/03/2024 (Approximate), Expires: 07/27/2025Start: 07-30-2024 End: 82-77-1562Wihcckbdyrua / ancillary services mduepvdzqu76/06/2024 3:30 PM EST Ancillary Procedure NOM FNR MR [address] [place] [address] N[facility]S FNR MRStart: 07-30-2024 End: 18-87-0019Mpbfxyh encounter hmekydcwn31/06/2024 3:00 PM EST Office Visit Cardiology [address] [place] [address] [place] [address] [place] [address] 6 month follow upCardiologyComment on above:6 month follow up Start: 07-27-2024 End: 01-13-3182Cfxzpwr encounter jzamylwix74/03/2024 3:30 PM EST Office Visit [facility] [address] [place] [address] Eulalio Martinez DO [address] [place] [address] ArrivedNOMS NB ORTHOComment on above:ArrivedStart: 07-27-2024 End: 11-41-4710FZG 12 leadECG 12 lead ECG Routine Pre-op testing Expected: 07/27/2024 (Approximate), Expires: 07/27/2025NOMS HealthcareComment on above: Expected: 07/27/2024 (Approximate), Expires: 07/27/2025Start: 06-25-2024 End: 16-49-0793OH Thoracic spine 3 ViewsXR thoracic spine 3 views Imaging Routine Strain of thoracic back region Muscle spasm Expected: 06/25/2024, Expires: 06/25/2025[facility] Work Phone: Comment on above:Expected: 06/25/2024, Expires: 06/25/2025Start: 06-15-2024 End: 08-14-2704Sibxdae encounter procedureNOMS NB ORTHOComment on above:Arrived Start: 06-11-2024 End: 61-40-6354Ldztwio encounter ncbgowogo82/18/2024 12:00 PM EDT Office Visit [facility] [address] [facility] [address] [place] [address] Grace Bucio MD [address] [facility] [address] [place] [address] GENSStart: 06-10-2024 End: 30-04-7963Pbicbfv encounter fwwrcluzf00/17/2024 4:30 PM EDT Office Visit [facility] [address] [facility] [address] [place] [address] Sedrick Lyons NP [address] [place] [address] ArrivedNOMS CI FMComment on above:ArrivedStart: 06-02-2024 End: 42-16-9146Giquiqr encounter bmvvgugga33/09/2024 2:30 PM EDT Procedure Visit [facility] EXT DEP Grace Bucio MD [address] [place] [address] NOMS EXT DEPStart: 05-21-2024 End: 74-58-0154Cesnyjb encounter ehgwkhxad93/27/2024 12:00 PM EDT Consult [facility] [address] [place] [address] Grace Bucio MD [address] [place] [address] GENSStart: 05-04-2024 End: 78-35-7268Birwvxj encounter jsjfsnmgo22/10/2024 3:00 PM EDT Consult [facility] [address] [place] [address] Grace Bucio MD [address] [place] [address] GENSStart: 78-89-5306Kmqsw-19 Vaccine ( season)Covid-19 Vaccine ( season)[facility]tart: 07-03-1269Rofxbenoe vaccinationJ.W. [facility] Hospitaltart: 01-30-2024 End: 37-71-0763Rpoigif encounter iggnnoobp42/07/2024 3:00 PM EDT Office Visit Cardiology [address] [place] [address] [place] [address] [place] [address] Return in about 6 months (around 01/30/2024).CardiologyComment on above:Return in about 6 months (around 01/30/2024).Start: 50-47-2415Wtwskybkzr Health ScreeningBehavioral Health ScreeningJ.W. Ruby Memorial Hospitaltart: 08-25-2023 Depression AssessmentDepression AssessmentJ.W. Ruby Memorial Hospitaltart: 04-25-2023 Covid-19 Vaccine ( season)Covid-19 Vaccine ( season) [facility]: 29-40-6990Nngucjxmb vaccinationJ.W. [facility] Memorial Hospitaltart: 58-31-6178JE CONTROLLED (<130/80)BP CONTROLLED (<130/80)[facility]tart: 29-17-0115LH CONTROLLED (<130/80)BP CONTROLLED (<130/80)[facility]: 80-67-5994AHVTQDGDTR ASSESSMENTDEPRESSION ASSESSMENTJ.W. [facility] Hospitaltart: 78-01-3122Alfqwipbf vaccinationJ.W. [facility] Hospitaltart: 03-28-2022 End: 73-74-0367Aijjvxomuhoop metabolic 2000 panel - Serum or PlasmaCOMP METABOLIC PANEL Lab Routine Atherosclerosis Expected: 03/28/2022, Expires: 05/28/2022[facility] Work Phone: Comment on above:Expected: 03/28/2022, Expires: 05/28/2022tart: 03-28-2022 End: 38-16-6854Bsawl 1996 panel - Serum or PlasmaLIPID PANEL BASIC Lab Routine Atherosclerosis Expected: 03/28/2022, Expires: 05/28/2022[facility] Work Phone: Comment on above:Expected: 03/28/2022, Expires: 05/28/2022tart: 03-13-2022 End: 70-14-3077Mx heart contrast eval cardiac structure&morphCT PULMONARY VEIN W IVCON Radiology Routine Persistent atrial fibrillation (HCC) Expected: 03/13/2022, Expires: 01/11/2023[facility] Work Phone: comment on above:Expected: 03/13/2022, Expires: 01/11/2023Start: 12-12-2021 End: 63-76-4171VDT COMPLETEECG COMPLETE ECG Routine Persistent atrial fibrillation (HCC) Expected: 12/12/2021, Expires: 12/12/2022[facility] Work Phone: comment on above:Expected: 12/12/2021, Expires: 12/12/2022Start: 80-60-3440AFM, Provider: Tera Davison, Status: Pen, Time: 3:10 PMFUV, Provider: Trea Davison, Status: Pen, Time: 3:10 PMMP-[facility] [address] DO Work Phone: Start: 03-26-6100FGN, Provider: STANISLAV RAMIREZ PULP GRINDER FEEDER 1,[id number], Status: Pen, Time: 1:30 PMEKG, Provider: STANISLAV RAMIREZ PULP GRINDER FEEDER 1,[id number], Status: Pen, Time: 1:30 PM-[facility] [address] DO Work Phone: Start: 23-84-3756UVHBDKSFX, Provider: Tera Davison, Status: Pen, Time: 10:00 [facility], Provider: Tera Davison, Status: Pen, Time: 10:00 [facility] Work Phone: Start: 55-66-9845WBYAYNOICU ASSESSMENTDEPRESSION ASSESSMENTJ.W. Ruby Memorial Hospitaltart: 47-16-4022DMRRYXMLY, Provider: Tera Davison, Status: Pen, Time: 9:00 [facility], Provider: Tera Davison, Status: Pen, Time: 9:00 [facility] [address] DO Work Phone: Start: 60-36-8188LRB Vaccine (1 - 1-dose 60+ series) RSV Vaccine (1 - 1-dose 60+ series)[facility]tart: 56-59-5541TZULRNXF CANCER SCREENING DISCUSSIONPROSTATE CANCER SCREENING DISCUSSIONOhiohealth [facility] Start: 97-34-6729Otkixambgiwq Vaccine: 50+ (1 of 1 - PCV)Pneumococcal Vaccine: 50+ (1 of 1 - PCV)[facility]: 33-58-8755Kishyhahzcyi Vaccine: 65+ Years (1 of 1 - PCV)Pneumococcal Vaccine: 65+ Years (1 of 1 - PCV)[facility] HealthcareStart: 93-95-2919OKTODZFD VACCINE (1 of 2)SHINGRIX VACCINE (1 of 2) [facility]: 93-04-4268BWBHQYTQK (FIT-DNA)COLOGUARD (FIT-DNA)[facility]tart: 80-04-7573VjakamvglakVHCPJKIQWPAKanitnbdz ClinicStart: 2004 COLORECTAL CANCER SCREENINGCOLORECTAL CANCER SCREENINGJ.W. Ruby Memorial Hospitaltart: 69-87-3669WJ COLONOGRAPHYCT COLONOGRAPHYJ.W. Ruby Memorial Hospitaltart: 19-52-4379LOZBR OCCULT BLOODFECAL OCCULT BLOODJ.W. Ruby Memorial Hospitaltart: 97-15-8194Nmldhjwkb for malignant neoplasm of colonJ.W. Ruby Memorial Hospitaltart: 95-07-8108VXDQLZVSWWNYK SIGMOIDOSCOPYJ.W. [facility] Memorial Hospitaltart: 84-31-0433MPVOZ SCREENLIPID SCREENJ.W. [facility] Memorial Hospitaltart: 18-88-1838Mpcwryeboshx Vaccine: 65+ Years (1 of 2 - PCV) Pneumococcal Vaccine: 65+ Years (1 of 2 - PCV)[facility] HealthcareStart: 1978 Urine microalbumin profileJ.W. Ruby Memorial Hospitaltart: 74-86-7623IWSEAB PCP TEAM CHRONIC DISEASE VISITANNUAL PCP TEAM CHRONIC DISEASE VISITJ.W. Ruby Memorial Hospitaltart: 93-25-8540Xsoeapv ScreeningAnxiety ScreeningJ.W. [facility] Memorial Hospitaltart: 58-79-7986KO CONTROLLED (<130/80)BP CONTROLLED (<130/80)[facility]tart: 1977 Depression ScreeningDepression ScreeningJ.W. Ruby Memorial Hospitaltart: 1977 HEPATITIS C SCREENINGHEPATITIS C SCREENINGJ.W. [facility] Memorial Hospitaltart: 1977 Hepatitis C screeningHepatitis C ScreeningJ.W. [facility] Memorial Hospitaltart: 74-23-8375UEK SCREENINGHIV SCREENINGJ.W. [facility] Hospitaltart: 18-37-8327QLZ screeningHIV ScreeningJ.W. [facility] Memorial Hospitaltart: 71-14-6451Wstks depression screening assessment DEPRESSION SCREENINGJ.W. Ruby Memorial Hospitaltart: 63-25-6807DKDOD-19 VACCINE (#1)COVID- 19 VACCINE (#1)[facility]: 95-93-8706IPQFA-19 VACCINE (1)COVID-19 VACCINE (1)[facility]: 53-28-2061EMJDC-19 VACCINE (#1)COVID-19 VACCINE (#1)[facility]tart: 48-20-5841Qfftcpwwn for malignant neoplasm of colonSouthPointe HospitalUluomlqnep33-yogiitrwuwhxbe D3 [Mass/volume] in Serum or Plasma Vitamin D 25 hydroxy Total Lab Routine Wellness examination Muscle cramping Ordered: 03/01/2025SouthPointe HospitalComment on above:Ordered: 03/01/2025 Lpjb-2-Zsadvdmosrflx [Mass/volume] in Serum or PlasmaParma Community General HospitalBlood type and Indirect antibody screen panel - BloodParma Community General HospitalBone marrow samplingParma Community General HospitalCBC W Auto Differential panel - BloodCBC auto differential Lab Routine 04/20/2024 6:07 AM [facility] Work Phone: cbc W Auto Differential panel - BloodCBC auto differential Lab Routine 01/13/2025 7:10 AM [facility] Work Phone: cbc W Auto Differential panel - BloodCBC auto differential Lab Routine 02/10/2025 9:15 AM [facility] Work Phone: cbc W Auto Differential panel - BloodCBC auto differential Lab Routine 05/12/2025 9:36 AM [facility] Work Phone: Comprehensive metabolic 1999 panel - Serum or Plasma [facility] HospitalComprehensive metabolic 1999 panel - Serum or [facility] CenterComprehensive metabolic 1999 panel - Serum or [facility] CenterComprehensive metabolic 1999 panel - Serum or PlasmaComprehensive metabolic panel Lab Routine 05/12/2025 9:36 AM [facility] Work Phone: Comprehensive metabolic 1999 panel - Serum or Plasma [facility] HospitalComprehensive metabolic 1999 panel - Serum or [facility] End: 15-36-8331YPN COMPLETEECG COMPLETE ECG Routine Atrial fibrillation, persistent (HCC) 1 Occurrences starting 08/01/2022 until 08/01/2023[facility] Work Phone: Comment on above:1 Occurrences starting 08/01/2022 until 08/01/2023ECG COMPLETEECG COMPLETE ECG 08/01/2022 2:00 PM [facility] End: 68-01-9188VkdclcutuhwadqwkSERP Cardiology Routine Persistent atrial fibrillation (HCC) 1 Occurrences starting 12/12/2021 until 12/12/2022[facility] Work Phone: comment on above:1 Occurrences starting 12/12/2021 until 12/12/2022 End: 09-63-4169BayhhrnnlzxvgorlGIEB Cardiology Routine PAF (paroxysmal atrial fibrillation) (HCC) 1 Occurrences starting 04/04/2025 until 04/04/2026[facility] Work Phone: Comment on above:1 Occurrences starting 04/04/2025 until 04/04/2026Ferritin [Mass/volume] in Serum or PlasmaFerritin Lab Routine 04/23/2024 3:51 PM [facility] HospitalFREE K+L LT CHAINS, QN, SFREE K+L LT CHAINS, QN, S Lab Routine 02/10/2025 9:15 AM [facility] HospitalHaptoglobin [Mass/volume] in Serum or [facility] Medical CenterHaptoglobin [Mass/volume] in Serum or [facility] Medical CenterHemoglobin A1c/Hemoglobin.total in BloodHemoglobin A1c Lab Routine Muscle cramping Wellness examination IFG (impaired fasting glucose) Ordered: 03/01/2025[facility] Comment on above:Ordered: 03/01/2025Iron and Iron binding capacity panel - Serum or PlasmaIron and TIBC Lab Routine 04/23/2024 3:51 PM [facility] Work Phone: Iron and Iron binding capacity panel - Serum or Plasma Iron and TIBC Lab Routine 05/12/2025 9:36 AM [facility] HospitalLipid 1996 panel - Serum or PlasmaLipid panel Lab Routine Wellness examination Primary hypertension Ordered: 03/01/2025[facility] HospitalComment on above:Ordered: 03/01/2025Patient EducationFircentra virginia [facility] Bone Marrow Aspiration or Biopsy Know your MedsFirelands Regional Med Center Work Phone: Patient [facility] Work Phone: Prostate specific Ag [Mass/volume] in Serum or Plasma PSA Lab Routine Wellness examination Screening for malignant neoplasm of prostate Ordered: 03/01/2025[facility] HospitalComment on above:Ordered: 03/01/2025 Protein electrophoresis, serumProtein electrophoresis, serum Lab Routine 02/10/2025 9:15 AM [facility] Work Phone: TSH W/REFLEX TO FT4TSH W/REFLEX TO FT4 Lab Routine Muscle cramping Wellness examination Ordered: 03/01/2025[facility] Work Phone: Comment on above:Ordered: 03/01/2025VIT. B12/FOLATE PROFILEVIT. B12/FOLATE PROFILE Lab Routine 04/23/2024 3:51 PM [facility] Immunizations Immunization DateImmunizationNotesCare TgheumhnZuwzdybm87-16-3280jjawvndrw, injectable, quadrivalent, preservative freeChristian Carlos DO Work Phone: [facility] HospitalFbbrzdwuqo46-44-9352gtqddyzvz virus vaccine, unspecified formulationBill Tuttle MD Work Phone: [facility] Cancer CenterEzyavk58-88-8745bitszwnyp, injectable, quadrivalent, preservative freeRennym E Cassi Work Phone: [facility], Cancer CenterHfgcmv48-05-9070dqjacftwu, seasonal, injectableKim E Ye Work Phone: [phone]-QsjklPaynesville Hospital 250 DO Work Phone: [phone]m, injectable, quadrivalent, preservative freeKim E Cassi Work Phone: [facility] CenterKhnlbk04-73-8568qhjftmype B vaccine, adult dosageKim E Cassi Work Phone: [facility] Cancer CenterDfdvas66-82-3685oipljpizl B vaccine, adult dosageKim E Cassi Work Phone: [facility] Cancer CenterUylkjd17-18-6491cfhlxtfxm B vaccine, adult dosageKim E Cassi Work Phone: [facility] Payers DatePayer CategoryPayerPolicy [id number] Member Subscriber Plan / Payer (Effective 2025-Present) Name: Darius Valera MemberID: [id number] Relation to Subscriber: Self Name: Darius Valera Subscriber ID: [id number] PayerID: STATE Group ID: Not on file Type: Medicare Address: [place] [address] [id number] [id number] Health Insurance [id number] UnknownMMO MMO [employer] [id number] 2020-Present [phone] [address] [address] [place] [address] [id number] [id number]kghx2463078 2.16.840.1.459942.3.579.2.96295-47-9827Klbwcal0556646 2.16.840.1.784872.3.579.2.61249-94-0329Ubptkmy73857469 2.16.840.1.421437.3.579.2.37906-59-3693Skzwwaw39199070 2.16.840.1.510029.3.579.2.83585-52-1209Ansywdj48572803 2.16.840.1.119478.3.579.2.38123-28-9524Flfksne39002619 2.16.840.1.391642.3.579.2.94505-05-9310Ougffun41923882 2.16.840.1.838091.3.579.2.02609-65-8630Hceauzx29595851 2.16.840.1.578596.3.579.2.817006-96-1051Sdrenob2822322 2.16.840.1.933675.3.579.2.470096-56-3979Zeompas9587918 2.16.840.1.170986.3.579.2.642504-13-5457Msmsehn2293681 2.16.840.1.827486.3.579.2.822883-68-4161Jdjnztp9112105 2.16.840.1.957013.3.579.2.619427-21-3005Nvaplsw5015969 2.16840.1.263036.3.579.2.180959-97-5764Npqpvah0691328 2.16840.1.479365.3.579.2.831874-71-6534Fvlxetu1067629 2.16840.1.479543.3.579.2.559532-76-9439Kxztxon5252372 2.0.1.889617.3.57[id number] 2.0.1.633417.3.579.2.985706-58-8279Sufyqpw6919798 2.840.1.203614.3.579.2.476952-25-3555Pjcieis1231428 2..1.638289.3.579.2.411321-36-6896Qydimwg7140645 2.0.1.346815.3.579.2.295287-15-3141Xlasxri3360661 2.0.1.937099.3.579.2.585912-72-7354Olibdbe2199828 2..1.440590.3.579.2.390566-33-2522Iacozns2658694 2..1.488742.3.579.2.932880-42-7450Vuruwxy5420461 2.0.1.378682.3.579.2.083900-95-1558Mlybjcm3411747 2..1.573237.3.579.2.857709-90-7799Ecax-mbm78427997769-09-9655Vtgwar's [id number] 2.840.1.457012.3.579.2.576Qitsjmi44530069 2.16.840.1.063367.3.579.2.793Exkogcl86539829 2.16.840.1.903547.3.579.2.531 Epwittu60086294 2.16.840.1.648183.3.579.2.997Toxambu32035093 2.16.840.1.694083.3.579.2.531 Social History DateTypeDetailFacilityStart: 01-17-2023 End: 12-88-2511Epjezsnx alcohol occasionallyConsumes alcohol occasionallyNOMS HealthcareComment on above:COFFEE ONCE IN A WHILE;occasionally;Start: 08-27-2021 End: 19-93-3934Igahggg smoking status NHISNever smoked tobaccoOhiohealth Arthur G.H. Bing, Md, Cancer Center Start: 26-85-0505Qhj Assigned At BirthNot on fileJ.W. Ruby Memorial Hospitaltart: 11-09-2021 End: 72-94-4158Zcsujxbo to SARS-CoV-2 (event)Not sureJ.W. Ruby Memorial Hospitaltart: 08-27-2021 End: 24-17-0829Vniqism use and exposureSmokeless tobacco non-userJ.W. Ruby Memorial Hospitaltart: 12-03-2021 End: 42-90-0902Nqfpfko intakeEx-drinker (finding)J.[facility]. [facility] Hospitaltart: 12-25-2021 End: 30-58-4807Bbtfbcar to SARS-CoV-2 (event)Unable to assessOhiohealth Arthur G.H. Bing, Md, Cancer Center Work Phone: Start: 01-17-2023 End: 87-00-7480Kxfokre use panelNOME HealthcareStart: 06-01-2021 End: 58-09-7277Ngzitmda Score (1-100), lower number is lower ikoj60QmvumvuokJ.W. Ruby Memorial Hospitaltart: 09-32-8645Nzy Assigned At [facility] Systemtart: 06-09-2024 End: 02-20-2469Pensdezxc beverage intakeCurrent drinker of alcohol (finding)NOMS HealthcareWithin the last year, have you been afraid of your partner or ex-partner?NoNOMS HealthcareDo you belong to any clubs or organizations such as protestant groups, unions, fraternal or athletic groups, or [...] before (I/we) got money to buy more.Never trueNOME HealthcareStart: 53-54-8243Ohvdwli Comment Caffeine intake: 1-2 cups per dayNOME HealthcareStart: 12-07-2024 End: 12-39-1984AuiWrtv (finding)[facility] Functional Status LrzfFxdsuvknawMupunsCbljxnsv75-80-0419Heiorrk Health Questionnaire 2 item (PHQ- 2) [Reported][facility]Pointe HospitalIwtjtawlfz10-61-0393Kqmgekn Health Questionnaire 2 item (PHQ- 2) [Reported][facility]Pointe HospitalAditjkrsfu86-29-2825Rku you deaf, or do you have serious difficulty hearingNo 12/04/2021 11:08 AM Irene Teixeira RN [facility] CenterOfigqc61-68-6475Gea you blind, or do you have serious difficulty seeing, even when wearing glassesNo 12/04/2021 11:08 AM Irene Teixeira RN NoCPremier Health Atrium Medical CenterAlbpmd95-67-1576Ox you have serious difficulty walking or climbing stairsNo 12/04/2021 11:08 AM Irene Teixeira RN NoCPremier Health Atrium Medical CenterPnacbm24-59-6929Lc you have difficulty dressing or bathingNo 12/04/2021 11:08 AM Irene Teixeira RN NoCPremier Health Atrium Medical CenterEliidq87-30-0951Cplciga of a physical, mental, or emotional condition, do you have difficulty doing errands alone such as visiting a physician's office or shoppingNo 12/04/2021 11:08 AM EDT Irene Tidwell RN No [facility] Mental Status XehoNymvzzglluTbesvaFdmabfsj45-17-7016Qsbvazk of a physical, mental, or emotional condition, do you have serious difficulty concentrating, remembering, or making decisionsNo 12/04/2021 11:08 AM EDT Irene Tidwell RN [facility] Clinical Notes 11-30-2021 to 05-13-2025 Note Date & OnneLhpfFcoobchu22-32-3981 Evaluation note* Diagnosis Onset Date Resolution Status Admit Date Autoimmune hemolytic anemia acuteSeptember 2024 9:24amCLL (chronic lymphocytic leukemia)acuteSeptember 2024 9:24am [facility] Work Phone: 1(677) 290-915909-12-2025 Progress note Author Christian Carlos [facility] HospitalNote Date/TimeSeptember 2024 4:02pm [facility] [place] [address] Cancer Center Note Signed Patient: Darius Valera MR#: [id number] : 1960 Acct:[id number] Age/Sex: 64 / M Type: [facility] Date of Service: Copies to: Linda Jansen PA-C~ Assessment & Plan CHEMO PLAN No Active Chemotherapy History of Present Illness HPI got labs at [facility]. his called us this morning to [...] No Known Allergies Allergy (Verified 02/19/25 09:38) [facility] Medical History Medical History Lymphocytosis Kidney stone March 2023-removed History of torn meniscus of right knee DMITRY on CPAP Problem List clean-up per [facility] A-fib Problem List clean-up per request of Phys. [facility] Hypertension Problem List clean-up per request of Phys. [facility] Surgical History Surgical History History of surgery on right wrist excision of mass right wrist 07/14/2020 H/O cardiac radiofrequency ablation History of vasectomy Problem List clean-up per [facility] Family [facility] Family History Father [...] by Christian Carlos II, DO> 05/06/25 1602 [facility] Work Phone: 1(398) 683-807009-12-2025 [facility]UnL[facility] [place] [address] Cancer Center Note Signed Patient: Darius Valera MR#: [id number] : 1960 Acct:[id number] Age/Sex: 64 / M Type: MONTY AMB Date of Service: Copies to: Linda Jansen PA-C~ Assessment & Plan CHEMO PLAN No Active Chemotherapy History of Present Illness HPI got labs at [facility]. his called us this morning to [...] No Known Allergies Allergy (Verified 02/19/25 09:38) [facility] Medical History Medical History Lymphocytosis Kidney stone March 2023-removed History of torn meniscus of right knee DMITRY on CPAP Problem List clean-up per request of Phys. [facility] A-fib Problem List clean-up per request of Phys. [facility] Hypertension Problem List clean-up per request of Phys. [facility] Surgical History Surgical History History of surgery on right wrist excision of mass right wrist 07/14/2020 H/O cardiac radiofrequency ablation History of vasectomy Problem List clean-up per request of Phys. [facility] Family History Family History Father [place] disease Father Mother Cancer Endometrial Cancer Grandparent Pancreatic cancer Social History Social History (Updated 02/19/25 @ 09:39 by Irene Garcia [facility]) Smoking status: Never smoker Nicotine containing products [...] DO DD/ 1557 Signed By: 05/06/25 1602 [facility]08-11-2025 NoteHNO ID: [id number] Author: BILL TUTTLE MD Service: ? Author Type: Physician Type: Progress Notes Filed: 04/04/2025 14:57 Note Text: [facility] [place] [facility]ep[facility] Department of Cardiovascular Medicine SECTION OF [facility] CARDIOLOGY OUTPATIENT VISIT DATE April [...] male here today for follow up from [place], [place]. Has h/o AF s/p ablation, HTN, DMITRY, tachycardia induced CMP, and CHF. On Eliquis, Nifedipine XL, Valsartan/HCTZ added on Doxazosin. Doxazocin increased to 2 mg but has been using only 1 mg daily. Continue to have BP spikes above 150s. Sotalol was discontinued. He followed before with a local call or contact centre manager Dr Hooks. Since last visit denies [...] TESTING: CT pulmonary 03/22/22 (more content not included)...[facility]08-11-2025 History of Present illness Narrative* Ita Tuttle MD - 04/04/2025 2:31 PM EDT Images from the original note were not included. [facility] [place] [facility] Department of Cardiovascular Medicine SECTION [...] male here today for follow up from [place], [place]. Has h/o AF s/p ablation, HTN, DMITRY, tachycardia induced CMP, and CHF. On Eliquis, Nifedipine XL, Valsartan/HCTZ added on Doxazosin. Doxazocin increased to 2 mg but has been using only 1 mg daily. Continue to have BP spikes above 150s. Sotalol was discontinued. He followed before with a local call or contact centre manager Dr Hooks. Since last visit denies [...] rare (<1.0%). Isolated VEs were occasional (1.4%, 93071), VE Couplets were rare (<1.0%, 56), and [...] Bystolic - S/p DCC by his local call or contact centre manager (Dr Castle) and subsequent ablation by EP (Dr Sena). - Negative outside stress EKG for ischemia 03/22/2020 - Update echo - May use one supplemental Mg OTC daily to try for leg cramps - Most recent renal fx reviewed This note was partially generated using [employer] voice recognition system, and there may be some incorrect words, spellings, and punctuation that were not noted in checking the note before saving. Someelements copied from my previous notes which have been updated as appropriate and reflect current medical decision making from today Bill Tuttle M.D., Miguel CONTACT INFORMATION: Shelib Tuttle M.D., Miguel. Sales And Business Development Manager Clinical economic research analyst [facility] Staff Coater Smoking Pipe Timothy Diaz [facility] Mail Code AVW2-1 [id number] [facility] [place] [address] CC: To use this Smartlink, specify the [...] medications for this visit. documented in this encounterOhiohealth Arthur G.H. [facility], Md, Cancer Center07-24-2025 Telephone encounter Note * Telephone Encounter - DOROTHEA Liang - 03/17/2025 1:21 PM EDT My Chart Message. [facility]Pointe HospitalFdcnulxpyx90-08-9691 Miscellaneous Notes* Telephone Encounter - DOROTHEA Liang - 03/17/2025 1:21 PM EDT My Chart Message. documented in this encounterSouthPointe HospitalZbkkngknse08-04-7850 History of Present illness Narrative* DOROTHEA Liang [...] Lymphocytosis The patient is seeing a medical coordinator pesticide use for this condition, treatment is deferred to that specialist. Correspondence from that specialist and any available testing were reviewed during today's visit. Arteriosclerotic vascular disease The patient is seeing a medical coordinator pesticide use for this condition, treatment is deferred to [...] (HHS-HCC) The patient is seeing a medical coordinator pesticide use for this condition, treatment is deferred to that specialist. Correspondence from that specialist and any available testing were reviewed during today's visit. Thoracic aortic ectasia The patient is seeing a medical coordinator pesticide use for this condition, treatment is deferred to that specialist. Correspondence from that specialist and any available testing were reviewed during today's visit. History of colon polyps Will continue to monitor with routine screenings. PONV (postoperative nausea and vomiting) H/o, pt will need to inform anesthesia should he have any additional surgeries. IFG (impaired fasting glucose) - Hemoglobin A1c Will check Y8jcuem upcoming fasting labs. Screening for malignant neoplasm of prostate - PSA Will check PSA with upcoming fasting labs. Follow up for Medicare Wellness Visit. documented in this encounterSouthPointe HospitalCqocprdwau17-86-1364 Evaluation note* Diagnosis Onset Date Resolution Status Admit Date Contact dermatitis acuteJune 2024 9:18am [facility] Work Phone: [phone]) 426-187905-12-2025 Telephone encounter Note* Telephone Encounter - Fabiola [...] 04/01/2022 0.98 0.73 - 1.22 mg/dL Final [facility]05-12-2025 Miscellaneous Notes* Telephone Encounter - Fabiola [...] - 1.22 mg/dL Final documented in this encounterOhiohealth Arthur G.H. 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 Apply ice to the knee [...] note was created using voice recognition through [employer]. documented in this encounterSouthPointe HospitalNlemtdkvzx94-37-2243 History of Present illness Narrative* Aracely De [...] the original note were not included. @ROSIE@ [facility] Soto is a 64 y.o. male [...] applying ice to the affected area [facility] work, which provided relief until [...] hour before bedtime. He can continue taking [place] if needed, but not at the same [...] note was created using voice recognition through [employer]. documented in this encounterSouthPointe HospitalHfgubnnjbe94-11-4358 Telephone encounter Note* Telephone Encounter - Bria [...] 04/01/2022 0.98 0.73 - 1.22 mg/dL Final [facility]02-04-2025 Miscellaneous Notes* Telephone Encounter - Bria [...] - 1.22 mg/dL Final documented in this encounterOhiohealth Arthur G.H. Bing, Md, Cancer Center01-28-2025 Instructions* Patient Instructions* Tony Armstrong PA-C - 09/21/2024 4:57 PM EST Please schedule appt with Dr. Tuttle in 6 months documented in this encounterOhiohealth Arthur G.H. Bing, Md, Cancer Center01-28-2025 History of Present illness Narrative* Tony Armstrong PA-C - 09/21/2024 4:30 PM EST Images from the original note were not included. [facility] [place] [facility] Department of Cardiovascular Medicine SECTION [...] rare (<1.0%). Isolated VEs were occasional (1.4%, 38991), VE Couplets were rare (<1.0%, 56), and [...] months CONTACT INFORMATION: Tony Armstrong PA-C Cardiology [id number] [facility] [place] [address] Dept: [phone] Dept documented in this encounterOhiohealth Arthur G.H. [facility], Md, Cancer Center01-28-2025 NoteHNO ID: [id number] Author: TONY ARMSTRONG PA-C Service: ? Author Type: Physician Sales And Business Development Manager Type: Progress Notes Filed: 09/21/2024 17:03 Note Text: [facility] [place] [facility] Department of Cardiovascular Medicine SECTION [...] rare (<1.0%). Isolated VEs were occasional (1.4%, 66617), VE Couplets were rare (<1.0%, 56), and [...] months CONTACT INFORMATION: Tony Armstrong PA-C Cardiology [id number] [facility] [place] [address] Dept: [phone] Dept [facility]fbCh[facility]01-22-2025 History of Present illness Narrative* DOROTHEA [...] No follow-ups on file. documented in this encounterSouthPointe HospitalDgjmqmvvmz59-91-7247 History of Present illness Narrative* Eulalio Martinez, DO - 08/24/2024 11:15 AM EST Images from the original note were not included. @ESADATE@ [facility] Soto is a 63 y.o. male [...] note was created using voice recognition through [employer]. documented in this encounterSouthPointe HospitalXazqcsxcut94-18-2920 History of Present illness Narrative* Eulalio Martinez [...] He also mentions a recent fall in [facility], where he tripped on a sidewalk and landed on his elbow, shoulder, and knee. Following this incident, he noticed swelling in his hands, which has since improved. He went to the urgent care in [place] for evaluation the following day. Xrays of [...] note was created using voice recognition through [employer]IT artificial intelligence. documented in this encounterSouthPointe HospitalFykwrgabie48-42-6081 Telephone encounter Note* Telephone Encounter - Bria [...] 04/01/2022 0.98 0.73 - 1.22 mg/dL Final [facility]11-06-2024 Miscellaneous Notes* Telephone Encounter - Bria [...] - 1.22 mg/dL Final documented in this encounterOhiohealth Arthur G.H. [facility], Md, Cancer Center11-05-2024 Telephone encounter Note * Telephone Encounter - DOROTHEA Liang - 06/29/2024 4:06 PM EST My Chart message sent. [place] [address]Zsqsnaytnw66-96-6617 Miscellaneous Notes* Telephone Encounter - DOROTHEA Liang - 06/29/2024 4:06 PM EST My Chart message sent. documented in this encounterSouthPointe HospitalZbyhuaitak33-14-6752 Telephone encounter Note* Telephone Encounter - DOROTHEA Liang - 06/28/2024 10:41 AM EST Message sent through Sosh [place] [id number] Miscellaneous Notes* Telephone Encounter - DOROTHEA Liang - 06/28/2024 10:41 AM EST Message sent through [employer] * Telephone Encounter - Kayla Rose LPN - 06/25/2024 12:28 PM EDT Attempted to call patient multiple times and call will not go through. Xray order has been sent to [facility] so he can go get that done at his convenience and PT will contact him to schedule. * Telephone Encounter - DOROTHEA Liang - 06/25/2024 12:08 PM EDT Ok to send order for x-rays to [facility]. Please let pt know that x-rays [...] he would like to have done at [facility] if you do order. documented in this encounterNOCox NorthIdkpxsejzs54-82-1350 Telephone encounter Note* Telephone Encounter - Kayla Rose LPN - 06/25/2024 12:28 PM EDT Attempted to call patient multiple times and call will not go through. Xray order has been sent to [facility] so he can go get that done at his convenience and PT will contact him to schedule. [facility]Pointe HospitalXepuiqawpi65-80-3155 Telephone encounter Note* Telephone Encounter - DOROTHEA Liang - 06/25/2024 12:08 PM EDT Ok to send order for x-rays to [facility]. Please let pt know that x-rays have been ordered and a PT referral was sent for him also. SouthPointe HospitalWpnklultxj20-79-4908 Telephone encounter Note* Telephone Encounter - Kayla Rose LPN - 06/25/2024 11:51 AM EDT Pt called stating he saw Sedrick Lyons on 06/10 and was diagnosed with stain of thoracic spine and muscle spasm, rx'd Prednisone, Tizanidine. States it is not really helping and was ?'ing if you could order either an x-ray or PT. X-ray he would like to have done at [facility] if you do order. SouthPointe HospitalZlqslgjwjs24-46-1362 History of Present illness Narrative* Eulalio Martinez, - 06/15/2024 3:15 PM EDT Images from the original note were not included. @ENCDATE@ [facility] Soto is a 63 y.o. male [...] MRI of the right knee performed at [facility] on 03/13/2019; Tear in the body and [...] note was created using voice recognition through [employer]IT artificial intelligence. documented in this encounterSouthPointe HospitalKmuaelcsdy12-77-0930 History of Present illness Narrative* Sedrick Lyons [...] No follow-ups on file. documented in this [facility]10-17-2024 Instructions* Patient Instructions* Sedrick Lyons NP - 06/10/2024 4:30 PM EDT Added prednisone and tizanidine. documented in this [facility]09-27-2024 History of Present illness Narrative* Grace Haque [...] fibrillation (CMS/HCC) COVID-19 08/05/2023 Hydronephrosis 04/14/2023 Hyperlipidemia ([facility]/HCC) Hypertension ([facility]) Kidney stone 04/14/2023 DMITRY (obstructive sleep apnea) [...] colonoscopy in 10 years. documented in this encounterSouthPointe HospitalNfphclzaxp75-48-8833 History of Present illness Narrative* Ita Tuttle MD - 01/30/2024 2:08 PM EDT Images from the original note were not included. [facility] [place] [facility] Department of Cardiovascular Medicine SECTION OF REGIONAL CARDIOLOGY OUTPATIENT VISIT DATE January 30, 2024 OUTPATIENT VISIT TYPE ESTABLISHED HISTORY OF PRESENT ILLNESS: Darius Valera is a (an) 63 year old year old male who is here today for follow- up. He had elevated WBCs and was seen by outside ophthalmic surgical assistant and was told might have CLL Last [...] male here today for follow up from [place], [place]. Has h/o AF s/p ablation, HTN, DMITRY, tachycardia induced CMP, and CHF. On Eliquis, Nifedipine XL, Valsartan/HCTZ added on Doxazosin. Doxazocin increased to 2 mg but has been using only 1 mg daily. Continue to have BP spikes above 150s. Sotalol was discontinued. He followed before with a local call or contact centre manager Dr Hooks. Since last visit denies [...] rare (<1.0%). Isolated VEs were occasional (1.4%, 24100), VE Couplets were rare (<1.0%, 56), and [...] needed - S/p DCC by his local call or contact centre manager (Dr Castle) and subsequent ablation by EP (Dr Sena). - Negative outside stress EKG for ischemia 03/22/2020 - Refill authorized - Most recent renal fx reviewed This note was partially generated using [employer] voice recognition system, and there may be some incorrect words, spellings, and punctuation that were not noted in checking the note before saving. Someelements copied from my previous notes which have been updated as appropriate and reflect current medical decision making from today Bill Tuttle M.D., Miguel CONTACT INFORMATION: Shelbi Tuttle M.D., Miguel. Sales And Business Development Manager Clinical economic research analyst [facility] Staff Coater Smoking Pipe Timothy Diaz [facility] Mail Code AVW2-1 [id number] [facility] [place] [address] CC: To use this Smartlink, specify the provider ID whose address you want to display, e.g., .PROVADDR[1 (where 1 is the provider ID). documented in this encounterOhiohealth Arthur G.H. [facility], Cancer Center05-08-2024 Telephone encounter Note * Telephone Encounter [...] 04/01/2022 0.98 0.73 - 1.22 mg/dL Final [facility]05-08-2024 Miscellaneous Notes* Telephone Encounter - Fabiola [...] - 1.22 mg/dL Final documented in this encounterOhiohealth Arthur G.H. Bing, Md, Cancer Center01-22-2024 Miscellaneous Notes* Telephone Encounter - Uyen Martinez RN - 09/15/2023 10:37 AM EST Pt sent Lalalama message regarding below. * Telephone Encounter - [...] Thanks Shelbi Tuttle MD documented in this encounterOhiohealth Arthur G.H. [facility], Md, Cancer Center12-07-2023 History of Present illness Narrative* Ita Tuttle MD - 07/31/2023 12:48 PM EST Images from the original note were not included. [facility] Heart [facility] [place] [facility]ep[facility] Department of Cardiovascular Medicine SECTION [...] male here today for follow up from [place]. Has h/o AF s/p ablation, HTN, DMITRY, tachycardia induced CMP, and CHF. On Eliquis, Nifedipine XL, Valsartan/HCTZ added on Doxazosin. Doxazocin increased to 2 mg but has been using only 1 mg daily. Continue to have BP spikes above 150s. Sotalol was discontinued. He followed before with a local call or contact centre manager Dr Hooks. Since last visit denies [...] size - S/p DCC by his local call or contact centre manager (Dr Castle) and subsequent ablation by EP (Dr Sena). - Negative outside stress EKG for ischemia 03/22/2020 - Advised to establish with a PCP at [facility] This note was partially generated using [employer] voice recognition system, and there may be some incorrect words, spellings, and punctuation that were not noted in checking the note before saving. Someelements copied from my previous notes which have been updated as appropriate and reflect current medical decision making from today Bill Tuttle M.D., Miguel CONTACT INFORMATION: Shelbi Tuttle M.D., Miguel. Sales And Business Development Manager Clinical economic research analyst [facility] Staff Coater Smoking Pipe Timothy Diaz [facility] Mail Code AVW2-1 [address] [facility] [place] [address] CC: To use this Smartlink, specify the provider ID whose address you want to display, e.g., .PROVADDR[1 (where 1 is the provider ID). documented in this encounterOhiohealth Arthur G.[facility]. [facility], Cancer Center08-08-2023 Miscellaneous Notes* Telephone Encounter - Griselda [...] - 1.22 mg/dL Final documented in this encounterOhiohealth Arthur G.H. [facility], [facility], Cancer Center05-03-2023 History of Present illness Narrative* Ita Tuttle MD - 12/25/2022 2:00 PM EDT Images from the original note were not included. [facility] [place] [facility] Department of Cardiovascular Medicine SECTION OF REGIONAL CARDIOLOGY OUTPATIENT VISIT DATE December 25, 2022 OUTPATIENT VISIT TYPE Established HISTORY OF PRESENT ILLNESS: Darius Valera is a 62 year old male here today for follow up from [place], [place]. Has h/o AF s/p ablation, HTN, DMITRY, tachycardia induced CMP, and CHF. On Eliquis, Nifedipine XL, Valsartan/HCTZ added on Doxazosin. Doxazocin increased to 2 mg but has been using only 1 mg daily. Continue to have BP spikes above 150s. Sotalol was discontinued. He followed before with a local call or contact centre manager Dr Hooks. Since last visit denies [...] daily - S/p DCC by his local call or contact centre manager (Dr Castle) and subsequent ablation by [...] needed. This note was partially generated using [employer] voice recognition system, and there may be some incorrect words, spellings, and punctuation that were not noted in checking the note before saving. Bill Tuttle M.D., F.A.C.C CONTACT INFORMATION: Bill Tuttle M.D., F.A.C.C. Staff Coater Smoking Pipe Timothy Diaz [facility] Mail Code AVW2-1 [id number] [facility] [place] [address] CC: To use this Smartlink, specify the provider ID whose address you want to display, e.g., .PROVADDR[1 (where 1 is the provider ID). documented in this encounterOhiohealth Arthur G.[facility]. [facility], [facility]05-02-2023 NotePROCEDURE: XR FOOT RT MIN 3 [...] authenticated by: BRIA PATEL Date: 2022-12-24 12:07[facility]05-02-2023 NotePROCEDURE: XR FOOT RT MIN 3 [...] authenticated by: BRIA PATEL Date: 2022-12-24 12:07[facility]03-08-2023 Miscellaneous Notes* Telephone Encounter - Lila Alvarenga - 10/30/2022 3:09 PM EST Darius rescheduled for [facility] in March with Dr. Sena. 10/30/2022 * [...] only Please advise spouse documented in this encounterOhiohealth Arthur G.[facility] Center02-23-2023 History of Present illness Narrative* Ita Tuttle MD - 10/17/2022 3:30 PM EST Images from the original note were not included. [facility] [place] Sissy Zepeda Department of Cardiovascular Medicine SECTION OF REGIONAL CARDIOLOGY OUTPATIENT VISIT DATE October 17, 2022 OUTPATIENT VISIT TYPE Established HISTORY OF PRESENT ILLNESS: Darius Valera is a 62 year old male here today for follow up from [place], [place]. Has h/o AF s/p ablation, HTN, DMITRY, tachycardia induced CMP, and CHF. On Eliquis, Nifedipine XL, Valsartan/HCTZ added on Doxazosin. Sotalol was discontinued. He followedbefore with a local call or contact centre manager Dr Hooks. Since last visit denies [...] MG - S/p DCC by his local call or contact centre manager (Dr Castle) and subsequent ablation by [...] needed. This note was partially generated using [employer] voice recognition system, and there may be some incorrect words, spellings, and punctuation that were not noted in checking the note before saving. Bill Tuttle M.D., Miguel CONTACT INFORMATION: Bill uTttle M.D., Miguel. Staff Coater Smoking Pipe Timothy Diaz [facility] Mail Code AVW2-1 [id number] [facility] [place] [address] CC: To use this Smartlink, specify the provider ID whose address you want to display, e.g., .PROVADDR[1 (where 1 is the provider ID). documented in this encounterOhiohealth Arthur G.[facility]. [facility], [facility] Center02-23-2023 Miscellaneous Notes* Telephone Encounter - Manisha Pinzon APRN.CNP - 10/17/2022 2:45 PM EST The following approved medication requests have been transmitted electronically. Requested Prescriptions Signed Prescriptions Disp Refills NIFEdipine XL (ADALAT CC) 30 mg 24 hr tablet 14 tablet 0 Sig: Take 1 tablet by mouth once daily. Authorizing Provider: TIA TUTTLE Ordering User: MANISHA PINZON APRN.CNP * Telephone Encounter - Ama Busby - 10/16/2022 4:19 PM EST Local [facility] 10 day supply Patient has not received it through mail yet, Today was his last pill, is it possible to do a shortterm refill so he does not miss a dose. Has an appointment tomorrow with us but is requesting to have filled tonight. documented in this encounterOhiohealth Arthur G.[facility]. [facility], [facility] Center02-20-2023 Miscellaneous Notes* Telephone Encounter - Marquez [...] - 1.4 mg/dL Final documented in this encounterOhiohealth Arthur G.[facility]. [facility], [facility] Center02-13-2023 Miscellaneous Notes* Telephone Encounter - Virgie [...] - 1.4 mg/dL Final documented in this encounterOhiohealth Arthur G.[facility]. [facility], [facility] Center01-20-2023 History of Present illness Narrative* Ita Tuttle MD - 09/13/2022 3:30 PM EST Images from the original note were not included. [facility] [place] Sissy Zepeda Department of Cardiovascular Medicine SECTION OF REGIONAL CARDIOLOGY OUTPATIENT VISIT DATE September 13, 2022 OUTPATIENT VISIT TYPE Established HISTORY OF PRESENT ILLNESS: Darius Valera is a 61 year old male here today for follow up from [place], [place]. Has h/o AF s/p ablation, HTN, DMITRY, tachycardia induced CMP, and CHF. On Eliquis, Nifedipine XL, Valsartan/HCTZ. Sotalol was discontinued. He followed before with a local call or contact centre manager Dr Hooks. Since last visit denies [...] or gallop. No parasternal heave or thrill. [place] not displaced. LUNGS: clear to auscultation, no [...] daily - S/p DCC by his local call or contact centre manager (Dr Castle) and subsequent ablation by [...] needed. This note was partially generated using [employer] voice recognition system, and there may be some incorrect words, spellings, and punctuation that were not noted in checking the note before saving. Bill Tuttle M.D., F.A.C.C CONTACT INFORMATION: Bill Tuttle M.D., F.A.C.C. Staff Coater Smoking Pipe Timothy Diaz [facility] Mail Code AVW2-1 [id number] [place] [address] CC: To use this Smartlink, specify the provider ID whose address you want to display, e.g., .PROVADDR[1 (where 1 is the provider ID). documented in this encounterOhiohealth Arthur G.[facility]. [facility], [facility] Center12-09-2022 Miscellaneous Notes* Telephone Encounter - Shani [...] a day. Thanks TD documented in this encounterOhiohealth Arthur G.[facility]. [facility], [facility] Center12-09-2022 Miscellaneous Notes* Telephone Encounter - Marissa [...] a day. Thanks TD documented in this encounterOhiohealth Arthur G.[facility]. [facility], [facility], [facility] Center12-08-2022 History of Present illness Narrative* Hiren [...] BP readings, which have frequently been in [id number]. ACTIVE PROBLEM LIST Atrial Fibrillation, Persistent (Hcc) [...] phrases that may beinappropriate. documented in this encounterOhiohealth Arthur G.[facility]. [facility], [facility] Center09-16-2022 History of Present illness Narrative* Ita Tuttle MD - 05/10/2022 3:03 PM EDT Images from the original note were not included. [facility] [place] Sissy Zepeda Department of Cardiovascular Medicine SECTION OF REGIONAL CARDIOLOGY OUTPATIENT VISIT DATE May 10, 2022 OUTPATIENT VISIT TYPE Established HISTORY OF PRESENT ILLNESS: Darius Valera is a 61 year old male here today for follow up from [place], [place]. Has h/o AF s/p ablation, HTN, DMITRY, tachycardia induced CMP, and CHF. On Eliquis, Nifedipine XL, Valsartan/HCTZ, Lasix, Potassium chloride. Sotalol was discontinued. He followed before with a local call or contact centre manager Dr Hooks. He reported that he [...] or gallop. No parasternal heave or thrill. [place] not displaced. LUNGS: clear to auscultation, no [...] Nifedipine - S/p DCC by his local call or contact centre manager (Dr Castle) and subsequent ablation by [...] needed. This note was partially generated using [employer] voice recognition system, and there may be some incorrect words, spellings, and punctuation that were not noted in checking the note before saving. Bill Tuttle M.D., Miguel CONTACT INFORMATION: Bill Tuttle M.D., Miguel. Staff Coater Smoking Pipe Timothy Diaz [facility] Mail Code AVW2-1 [id number] [facility] [place] [address] CC: To use this Smartlink, specify the provider ID whose address you want to display, e.g., .PROVADDR[1 (where 1 is the provider ID). documented in this encounterOhiohealth Arthur G.[facility]. [facility], [facility] Center08-19-2022 History of Present illness Narrative* Bridget Hudson - 04/12/2022 2:39 PM EDT Waiting for LALO for program status/follow up documented in this encounterOhiohealth Arthur G.[facility]. [facility], [facility] Center08-04-2022 History of Present illness Narrative* Ita Tuttle MD - 03/28/2022 3:00 PM EDT Images from the original note were not included. [facility] [place] Sissy Zepeda Department of Cardiovascular Medicine SECTION OF REGIONAL CARDIOLOGY OUTPATIENT VISIT DATE March 28, 2022 OUTPATIENT VISIT TYPE Established HISTORY OF PRESENT ILLNESS: Darius Valera is a 61 year old male here today for follow up from [place], [place]. Has h/o AF, HTN, DMITRY, tachycardia induced CMP, and CHF. On Eliquis, Nifedipine XL, Valsartan/HCTZ, Lasix, Potassium chloride, and Sotalol. He followed before with a local call or contact centre manager Dr Hooks. He reported that he [...] or gallop. No parasternal heave or thrill. [place] not displaced. LUNGS: clear to auscultation, no [...] Nifedipine - S/p DCC by his local call or contact centre manager (Dr Castle) and subsequent ablation by [...] lipids This note was partially generated using [employer] voice recognition system, and there may be some incorrect words, spellings, and punctuation that were not noted in checking the note before saving. Bill Tuttle M.D., F.Jojo.C.C CONTACT INFORMATION: Bill Tuttle M.D., F.A.C.C. Staff Coater Smoking Pipe Timothy Hdz [facility] Mail Code AVW2-1 [id number] [facility] [place] [address] CC: To use this Smartlink, specify the provider ID whose address you want to display, e.g., .PROVADDR[1 (where 1 is the provider ID). documented in this encounterOhiohealth Arthur G.[facility]. [facility], [facility], Cancer Center08-02-2022 History of Present illness Narrative* Bijal Jackson PA-C - 03/26/2022 1:40 PM EDT Incidental Lung Nodule Enrollment Call attempt: 1st Attempt Call status: Complete Enrolled in Lung Nodule program: Yes Lung Nodule outreach: Enrolled Lung Nodule Program Location: [place] Patient has already discussed lung nodule with his call or contact centre manager, who placed a consult to lung nodule clinic. He is scheduled to see Lilo Moody later this month. documented in this encounterOhiohealth Arthur G.[facility]. [facility], [facility] Center07-29-2022 History of Present illness Narrative* Brabara Mccloud APRN.CNP - 03/22/2022 9:59 AM EDT Images from the original note were not included. [facility] [place] Sissy Zepeda Department of Cardiovascular Medicine SECTION [...] success off AAD Not applicable Barbara Mccloud APRN.MIXING TANK OPERATOR Pulmonary CT scan 03/22/2022: IMPRESSION: 1. Normal [...] INFORMATION: Barbara Mccloud APRN.CNP documented in this encounterOhiohealth Arthur G.[facility]. [facility], [facility], [facility] Center07-29-2022 History of Present illness Narrative* RT [...] 2022 TIME: 8:50 AM documented in this encounterOhiohealth Arthur G.[facility]. [facility], [facility], [facility] Center05-19-2022 Miscellaneous Notes* Telephone Encounter - Britney [...] Britney Gamboa APRN.CNP, DNP documented in this encounterOhiohealth Arthur G.[facility]. [facility], [facility] Center04-29-2022 Miscellaneous Notes* Telephone Encounter - Yara Rubin RN - 12/21/2021 4:03 PM EDT Closing encounter see encounter note as below: RX INSTRUCTIONS: Patient aware RX will be sent to pharmacy. No need to notify patient. Alicia Chavarria documented in this encounterOhiohealth Arthur G.[facility]. [facility], [facility], [facility] Center04-29-2022 Miscellaneous Notes* Telephone Encounter - Ran [...] notify patient. Alicia Chavarria documented in this encounterOhiohealth Arthur G.[facility]. [facility], [facility] Center04-28-2022 Miscellaneous Notes* Telephone Encounter - Uyen Martinez RN - 12/20/2021 3:45 PM EDT Pt in for office visit with Dr. Tuttle today. Requesting superintendent terminal refills on all meds from mail away pharmacy, including sotalol. Pt had ablation on 12/03/21. Please sign refill of sotalol if appropriate. Thanks documented in this encounterOhiohealth Arthur G.[facility]. [facility], [facility] Center04-14-2022 Miscellaneous Notes* Telephone Encounter - Uyen Allison RN - 12/06/2021 4:34 PM EDT Completed form given to admin to fax and upload. Uyen Allison RN * Telephone Encounter - Tayla Burrell - 12/06/2021 1:11 PM EDT Received FMLA paper work today and left on nurses desk to complete. I also uploaded documents to [employer] * Telephone Encounter - Elida Abarca - 12/06/2021 10:49 AM EDT Please contact patient regarding swiftQueuehart message. documented in this encounterOhiohealth Arthur G.[facility]. [facility], [facility], [facility] Center04-13-2022 Miscellaneous Notes* Telephone Encounter - Barbara [...] he has no improvement by Friday, to [facility] ED for evaluation. Patient verbalized understanding. I asked him to call the office with any updates. Barbara Mccloud APRN.CNP documented in this encounterOhiohealth Arthur G.[facility]. [facility], [facility], [facility] Center04-13-2022 Miscellaneous Notes* Telephone Encounter - Cammy Fay RN - 12/05/2021 3:55 PM EDT [facility] Contact Center Inbound Phone Encounter DATE of SERVICE: 12/05/2021 TIME of SERVICE: 3:55 PM Status: Non-urgent, needs attention Service/Provider: EP/JAMIE Garvey M.D. Reason for call: Pain Contact information: [phone] [facility] Comments: Pt states that he is having pain in his bilat upper chest, I can not even lay down . He is taking tylenol and it is not working. He wants to know if he can take something else? Please callto discuss. Cammy Fay RN Date of Resolution: 12/05/2021 Time of Resolution 3:55 PM documented in this encounterOhiohealth Arthur G.[facility]. [facility] Center04-13-2022 Miscellaneous Notes* Telephone Encounter - Elida Abarca - 12/05/2021 3:41 PM EDT Please contact patient regarding MyChart message. * Telephone Encounter - DARIO Jose - 12/05/2021 1:49 PM EDT Patients calling. Patients workplace did not receive [facility] paperwork & patient is needing a return to work date. Please advise [phone] documented in this [facility]04-12-2022 History of Present illness Narrative* Tammy Mendoza - 12/04/2021 11:12 AM EDT TRANSMITTER INSTRUCTIONS Patient Name: Darius Valera [facility] Number: [id number] Fresh battery inserted in monitor Baseline recording not completed Patient instructed 1.) Scheduled and Symptomatic recording instructions 2.) Usage of event button and/or transmission instructions 3.) Maintenance and care of monitor 4.) Landline availability 5.) Return unit at the end of prescribed order 6.) Call with problems [phone] OR [phone] Patient expresses good verbal understanding of instructions Tammy Mendoza documented in this [facility]04-08-2022 History of Present illness Narrative* Griselda [...] discussed with Physician, nurse practitioner or Physician kindergarten teacher assistant upon discharge Instructions for transmitting EKG to Monitoring Center 3 month follow up instructions Contact number for information and questions Patient Evaluation: Verbalizes understanding Follow Up Plan: Follow up as directed by MD. Supplemental Material Given: Written Material Patient education regarding radiation exposure. Instructed By Griselda Felder RN, RN. In Department of CARDIOLOGY. [facility]* Diagnosis AF (paroxysmal atrial fibrillation) (HCC)- Primary Atrial fibrillation documented in this encounter [facility] note* Diagnosis Persistent atrial fibrillation (HCC) Atrial fibrillation documented in this encounter [facility] note* Diagnosis Atrial fibrillation, persistent (HCC)- Primary Atrial fibrillation documented in this encounter [facility] note* Diagnosis Atrial fibrillation, persistent (HCC) Atrial fibrillation Benign essential HTN Essential hypertension, benign documented in this encounter [facility] note* Diagnosis Atrial fibrillation, persistent (HCC) Atrial fibrillation Benign essential HTN Essential hypertension, benign Hypertension, unspecified type documented in this encounter [facility] note* Diagnosis Atrial fibrillation, persistent (HCC)- Primary Atrial fibrillation Lung nodule Solitary pulmonary nodule DMITRY (obstructive sleep apnea) Obstructive sleep apnea (adult) (pediatric) documented in this encounter [facility] note* Diagnosis Persistent atrial fibrillation (HCC) Atrial fibrillation documented in this encounter [facility] note* Diagnosis Lung nodule- Primary Solitary pulmonary nodule documented in this encounter [facility] note* Diagnosis Atherosclerosis- Primary Generalized and unspecified atherosclerosis Ascending aorta dilatation (HCC) Thoracic aortic ectasia Tachycardia induced cardiomyopathy (HCC) Tachycardia, unspecified documented in this encounter [facility] note* Diagnosis Tachycardia induced cardiomyopathy (HCC)- Primary Tachycardia, unspecified documented in this encounter [facility] note* Diagnosis Atrial fibrillation, persistent (HCC)- Primary Atrial fibrillation Hypertension, unspecified type DMITRY (obstructive sleep apnea) Obstructive sleep apnea (adult) (pediatric) Benign essential HTN Essential hypertension, benign S/P ablation of atrial fibrillation Other postprocedural status Encounter for current long-term use of anticoagulants Long-term (current) use of anticoagulants documented in this encounter [facility] note* Diagnosis Hypertension, unspecified type- Primary documented in this encounter [facility] note* Diagnosis Hypertension, unspecified type documented in this encounter [facility] note* Diagnosis Medication refill [Z76.0 (ICD-10-CM)]- Primary Issue of repeat prescriptions Hypertension, unspecified type documented in this encounter [facility] note* Diagnosis Hypertension, unspecified type- Primary documented in this encounter [facility] note* Diagnosis Atrial fibrillation, persistent (HCC) Atrial fibrillation Benign essential HTN Essential hypertension, benign documented in this encounter [facility] note* Diagnosis Hypertension, unspecified type- Primary Aortic root dilatation (HCC) Thoracic aortic ectasia documented in this encounter [facility] note* Diagnosis Hypertension, unspecified type documented in this encounter [facility] noteNo assessment information availableC[facility] Clinic [facility] Work Phone: Evaluation note* Diagnosis Paroxysmal atrial fibrillation (HCC)- Primary Atrial fibrillation Atrial fibrillation, persistent (HCC) Atrial fibrillation Benign essential HTN Essential hypertension, benign Hypertension, unspecified type Prescription refill Issue of repeat prescriptions Tachycardia induced cardiomyopathy (HCC) Tachycardia, unspecified Aortic root dilatation (HCC) Thoracic aortic ectasia documented in this encounter [facility] note* Diagnosis Onset Date Resolution Status Lymphocytosis acute [facility] Work Phone: Evaluation note* Diagnosis Screening for malignant neoplasm of colon- Primary [facility] Diagnosis Tear of medial meniscus of right knee, current, unspecified tear type, subsequent encounter- Primary documented [facility]* Diagnosis Strain of thoracic back region- Primary Muscle spasm Spasm of muscle [facility]* Diagnosis Strain of thoracic back region- Primary Muscle spasm Spasm of muscle [facility]* Diagnosis Pre-op testing Unspecified pre-operative examination [facility]* Diagnosis History of colon polyps- Primary Screening for malignant neoplasm of colon documented [facility] this [facility]* Diagnosis S/P right knee arthroscopy- Primary [facility]* Diagnosis Acute non-recurrent maxillary sinusitis- Primary [facility]* Diagnosis Primary hypertension- Primary Unspecified essential hypertension PAF (paroxysmal atrial fibrillation) (HCC) Atrial fibrillation Coronary artery calcification Coronary atherosclerosis of unspecified type of vessel, nenana or graft documented [facility]* Diagnosis Prescription refill- Primary Issue of repeat prescriptions documented [facility] this encounter [facility]* Diagnosis Left hand pain- Primary Pain in soft tissues of limb S/P right knee arthroscopy Right knee pain, unspecified chronicity [facility]* Diagnosis S/P right knee arthroscopy- Primary [facility]* Diagnosis Hypertension, unspecified type documented in this encounter [facility] note* Diagnosis Wellness examination- Primary Muscle cramping [...] neoplasm of prostate [facility]* Diagnosis PAF (paroxysmal atrial fibrillation) (HCC)- Primary Atrial fibrillation Atrial fibrillation, persistent (HCC) Atrial fibrillation Benign essential HTN Essential hypertension, benign Hypertension, unspecified type Tachycardia induced cardiomyopathy (HCC) Tachycardia, unspecified documented in this encounter [facility] CenterHistory of Present illness Narrative* Here for [...] 4. Arrangements for cardioversion will be made [facility] 250 DO Work Phone: History of Present [...] 4. Arrangements for cardioversion will be made [facility] Work Phone: History of Present [...] 4. Arrangements for cardioversion will be made [facility] Work Phone: History of Present [...] his primary care provider. documented in this encounterNOCox NorthReason for referral (narrative)* Outpatient Procedure (Routine) - Pending ReviewSpecialtyDiagnoses / Procedures Referred By ContactReferred To [facility] Diagnoses Persistent atrial fibrillation (HCC) Procedures ECG COMPLETE ECG ROUTINE ECG W/LEAST 12 LDS W/I&R 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 APRN.CNP [address] [place] [address] [facility] [place] [address] [place] [address] Referral IDStatusReasonStart DateExpiration DateVisits RequestedVisits [id number] Review Auto-Generated Referral / * MRI/CT (Routine) - Pending ReviewSpecialtyDiagnoses / ProceduresReferred By ContactRefmercyed To [facility] IMAGING Diagnoses Persistent atrial fibrillation (HCC) Procedures CT PULMONARY VEIN W IVCON CT HEART CONTRAST EVAL CARDIAC STRUCTURE&MORPH 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 APRN.CNP [address] [place] [address] Ct Imaging Referral IDStatusReasonStart DateExpiration DateVisits RequestedVisits [id number] Review Auto-Generated Referral * Outpatient Procedure (Routine) - Pending ReviewSpecialtyDiagnoses / Procedures Referred By ContactReferred To [facility] [place] Diagnoses Persistent atrial fibrillation (HCC) Procedures ECHO ECHO TTHRC R-T 2D W/WOM-MODE COMPL SPEC&COLR D 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 APRN.CNP [address] [facility] [address] [place] [address] [address] [place] [address] Referral IDStatusTessasonStnewport DateExpiration DateVisits RequestedVisits [id number] Review Auto-Generated Referral [facility] for referral (narrative)* Outpatient Procedure (Routine) - ClosedSpecialtyDiagnoses / ProceduresReferred By ContactReferred To [facility] VASCULAR [place] Diagnoses Atrial fibrillation, persistent (HCC) Procedures ECG COMPLETE ECG ROUTINE ECG W/LEAST 12 LDS W/I&R Hiren Sena MD [address] [place] [address] [address] [place] [address] Referral IDStatusTessUnited States Marine Hospital DateExpiration DateVisits RequestedVisits [id number] Auto-Generated Referral [facility] for referral (narrative)No reason for referral information availableC[facility] Work Phone: Summary Purpose Family History [...] Age at Onset Recorded Date/T nalini father [place]'s disease Unknown fatherDeceasedUnknownNot SpecifiedDeceasedUnknownMalignant neoplasmUnknown grandparentMalignant neoplasm [...] Procedures CONSULT TO LUNG NODULE CLINIC OFFICE/[facility] 60-74 MINUTES Barbara Mccloud APRN.CNP [address] [place] [id number] Referral IDStatusReasonStart DateExpiration DateVisits RequestedVisits [id number] Review PCP Requested Referral /[id number] / ProceduresReferred By ContactReferred To ContactCT IMAGING Diagnoses Persistent atrial fibrillation (HCC) Procedures CT PULMONARY VEIN W IVCON CT HEART CONTRAST EVAL CARDIAC STRUCTURE&MORPH 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 APRN.MIXING TANK OPERATOR [address] [place] [address] Ct Imaging Referral IDStatusTessUnited States Marine Hospital DateExpiration DateVisits RequestedVisits [id number] Auto-Generated Referral / Chief Complaint and Reason [...] section and content) DATE CREATED AUTHOR 05/19/2020 [facility] DATE CREATED AUTHOR AUTHOR'S ORGANIZ ATION 06/27/2021 [employer] DATE CREATED AUTHOR AUTHOR'S ORGANIZ ATION 08/30/2021 [facility] DATE CREATED AUTHOR AUTHOR'S ORGANIZ ATION 10/18/2022 [facility] DATE CREATED AUTHOR AUTHOR'S ORGANIZ ATION 01/31/2023 [facility] DATE CREATED AUTHOR AUTHOR'S ORGANIZ ATION 04/11/2023 [facility] DATE CREATED AUTHOR AUTHOR'S ORGANIZ ATION 01/18/2024 [facility] DATE CREATED AUTHOR AUTHOR'S ORGANIZ ATION 03/05/2025 [facility] DATE CREATED AUTHOR AUTHOR'S ORGANIZ ATION 03/20/2025 [facility] DATE CREATED AUTHOR AUTHOR'S ORGANIZ ATION 05/30/2025 [facility] DATE CREATED AUTHOR AUTHOR'S ORGANIZ ATION 06/14/2025 [facility] Source Comments (unrecognize d section and content) In the event this informatio n is protected by the Federal Confidentiality of Alcohol and Drug Abuse Patient Records regulations: The Federal rules restrict any use of the information to criminally investigate or prosecute any alcohol or drug abuse patient.[facility], [facility] CenterIn the event this information is protected by the Federal Confidentiality of Alcohol and Drug Abuse Patient Records regulations: The Federal rules restrict any use of the information to criminally investigate or prosecute any alcohol or drug abuse patient.[facility] CenterIn the event this information is protected by the Federal Confidentiality of Alcohol and Drug Abuse Patient Records regulations: The Federal rules restrict any use of the information to criminally investigate or prosecute any alcohol or drug abuse patient.[facility] CenterIn the event this information is protected by the Federal Confidentiality of Alcohol and Drug Abuse Patient Records regulations: The Federal rules restrict any use of the information to criminally investigate or prosecute any alcohol or drug abuse patient.[facility] CenterIn the event this information is protected by the Federal Confidentiality of Alcohol and Drug Abuse Patient Records regulations: The Federal rules restrict any use of the information to criminally investigate or prosecute any alcohol or drug abuse patient.[facility] CenterIn the event this information is protected by the Federal Confidentiality of Alcohol and Drug Abuse Patient Records regulations: The Federal rules restrict any use of the information to criminally investigate or prosecute any alcohol or drug abuse patient.[facility] CenterIn the event this information is protected by the Federal Confidentiality of Alcohol and Drug Abuse Patient Records regulations: The Federal rules restrict any use of the information to criminally investigate or prosecute any alcohol or drug abuse patient.[facility] CenterIn the event this information is protected by the Federal Confidentiality of Alcohol and Drug Abuse Patient Records regulations: The Federal rules restrict any use of the information to criminally investigate or prosecute any alcohol or drug abuse patient.[facility] CenterIn the event this information is protected by the Federal Confidentiality of Alcohol and Drug Abuse Patient Records regulations: The Federal rules restrict any use of the information to criminally investigate or prosecute any alcohol or drug abuse patient.[facility] CenterIn the event this information is protected by the Federal Confidentiality of Alcohol and Drug Abuse Patient Records regulations: The Federal rules restrict any use of the information to criminally investigate or prosecute any alcohol or drug abuse patient.[facility] CenterIn the event this information is protected by the Federal Confidentiality of Alcohol and Drug Abuse Patient Records regulations: The Federal rules restrict any use of the information to criminally investigate or prosecute any alcohol or drug abuse patient.[facility] CenterIn the event this information is protected by the Federal Confidentiality of Alcohol and Drug Abuse Patient Records regulations: The Federal rules restrict any use of the information to criminally investigate or prosecute any alcohol or drug abuse patient.[facility] CenterIn the event this information is protected by the Federal Confidentiality of Alcohol and Drug Abuse Patient Records regulations: The Federal rules restrict any use of the information to criminally investigate or prosecute any alcohol or drug abuse patient.[facility] CenterIn the event this information is protected by the Federal Confidentiality of Alcohol and Drug Abuse Patient Records regulations: The Federal rules restrict any use of the information to criminally investigate or prosecute any alcohol or drug abuse patient.[facility] CenterIn the event this information is protected by the Federal Confidentiality of Alcohol and Drug Abuse Patient Records regulations: The Federal rules restrict any use of the information to criminally investigate or prosecute any alcohol or drug abuse patient.[facility] CenterIn the event this information is protected by the Federal Confidentiality of Alcohol and Drug Abuse Patient Records regulations: The Federal rules restrict any use of the information to criminally investigate or prosecute any alcohol or drug abuse patient.[facility] CenterIn the event this information is protected by the Federal Confidentiality of Alcohol and Drug Abuse Patient Records regulations: The Federal rules restrict any use of the information to criminally investigate or prosecute any alcohol or drug abuse patient.[facility] CenterIn the event this information is protected by the Federal Confidentiality of Alcohol and Drug Abuse Patient Records regulations: The Federal rules restrict any use of the information to criminally investigate or prosecute any alcohol or drug abuse patient.[facility] CenterIn the event this information is protected by the Federal Confidentiality of Alcohol and Drug Abuse Patient Records regulations: The Federal rules restrict any use of the information to criminally investigate or prosecute any alcohol or drug abuse patient.[facility] CenterIn the event this information is protected by the Federal Confidentiality of Alcohol and Drug Abuse Patient Records regulations: The Federal rules restrict any use of the information to criminally investigate or prosecute any alcohol or drug abuse patient.[facility] CenterIn the event this information is protected by the Federal Confidentiality of Alcohol and Drug Abuse Patient Records regulations: The Federal rules restrict any use of the information to criminally investigate or prosecute any alcohol or drug abuse patient.[facility] CenterIn the event this information is protected by the Federal Confidentiality of Alcohol and Drug Abuse Patient Records regulations: The Federal rules restrict any use of the information to criminally investigate or prosecute any alcohol or drug abuse patient.[facility] CenterIn the event this information is protected by the Federal Confidentiality of Alcohol and Drug Abuse Patient Records regulations: The Federal rules restrict any use of the information to criminally investigate or prosecute any alcohol or drug abuse patient.[facility] CenterIn the event this information is protected by the Federal Confidentiality of Alcohol and Drug Abuse Patient Records regulations: The Federal rules restrict any use of the information to criminally investigate or prosecute any alcohol or drug abuse patient.[facility] CenterIn the event this information is protected by the Federal Confidentiality of Alcohol and Drug Abuse Patient Records regulations: The Federal rules restrict any use of the information to criminally investigate or prosecute any alcohol or drug abuse patient.[facility] CenterIn the event this information is protected by the Federal Confidentiality of Alcohol and Drug Abuse Patient Records regulations: The Federal rules restrict any use of the information to criminally investigate or prosecute any alcohol or drug abuse patient.[facility] CenterIn the event this information is protected by the Federal Confidentiality of Alcohol and Drug Abuse Patient Records regulations: The Federal rules restrict any use of the information to criminally investigate or prosecute any alcohol or drug abuse patient.[facility] CenterIn the event this information is protected by the Federal Confidentiality of Alcohol and Drug Abuse Patient Records regulations: The Federal rules restrict any use of the information to criminally investigate or prosecute any alcohol or drug abuse patient.[facility] CenterIn the event this information is protected by the Federal Confidentiality of Alcohol and Drug Abuse Patient Records regulations: The Federal rules restrict any use of the information to criminally investigate or prosecute any alcohol or drug abuse patient.[facility] CenterIn the event this information is protected by the Federal Confidentiality of Alcohol and Drug Abuse Patient Records regulations: The Federal rules restrict any use of the information to criminally investigate or prosecute any alcohol or drug abuse patient.[facility] CenterIn the event this information is protected by the Federal Confidentiality of Alcohol and Drug Abuse Patient Records regulations: The Federal rules restrict any use of the information to criminally investigate or prosecute any alcohol or drug abuse patient.[facility] CenterIn the event this information is protected by the Federal Confidentiality of Alcohol and Drug Abuse Patient Records regulations: The Federal rules restrict any use of the information to criminally investigate or prosecute any alcohol or drug abuse patient.[facility] CenterIn the event this information is protected by the Federal Confidentiality of Alcohol and Drug Abuse Patient Records regulations: The Federal rules restrict any use of the information to criminally investigate or prosecute any alcohol or drug abuse patient.[facility] CenterIn the event this information is protected by the Federal Confidentiality of Alcohol and Drug Abuse Patient Records regulations: The Federal rules restrict any use of the information to criminally investigate or prosecute any alcohol or drug abuse patient.[facility] CenterIn the event this information is protected by the Federal Confidentiality of Alcohol and Drug Abuse Patient Records regulations: The Federal rules restrict any use of the information to criminally investigate or prosecute any alcohol or drug abuse patient.[facility] CenterIn the event this information is protected by the Federal Confidentiality of Alcohol and Drug Abuse Patient Records regulations: The Federal rules restrict any use of the information to criminally investigate or prosecute any alcohol or drug abuse patient.[facility] CenterIn the event this information is protected by the Federal Confidentiality of Alcohol and Drug Abuse Patient Records regulations: The Federal rules restrict any use of the information to criminally investigate or prosecute any alcohol or drug abuse patient.[facility] CenterIn the event this information is protected by the Federal Confidentiality of Alcohol and Drug Abuse Patient Records regulations: The Federal rules restrict any use of the information to criminally investigate or prosecute any alcohol or drug abuse patient.[facility] CenterIn the event this information is protected by the Federal Confidentiality of Alcohol and Drug Abuse Patient Records regulations: The Federal rules restrict any use of the information to criminally investigate or prosecute any alcohol or drug abuse patient.[facility] CenterIn the event this information is protected by the Federal Confidentiality of Alcohol and Drug Abuse Patient Records regulations: The Federal rules restrict any use of the information to criminally investigate or prosecute any alcohol or drug abuse patient.[facility] CenterIn the event this information is protected by the Federal Confidentiality of Alcohol and Drug Abuse Patient Records regulations: The Federal rules restrict any use of the information to criminally investigate or prosecute any alcohol or drug abuse patient.[facility] CenterIn the event this information is protected by the Federal Confidentiality of Alcohol and Drug Abuse Patient Records regulations: The Federal rules restrict any use of the information to criminally investigate or prosecute any alcohol or drug abuse patient.[facility] CenterIn the event this information is protected by the Federal Confidentiality of Alcohol and Drug Abuse Patient Records regulations: The Federal rules restrict any use of the information to criminally investigate or prosecute any alcohol or drug abuse patient.[facility] CenterIn the event this information is protected by the Federal Confidentiality of Alcohol and Drug Abuse Patient Records regulations: The Federal rules restrict any use of the information to criminally investigate or prosecute any alcohol or drug abuse patient.[facility] CenterIn the event this information is protected by the Federal Confidentiality of Alcohol and Drug Abuse Patient Records regulations: The Federal rules restrict any use of the information to criminally investigate or prosecute any alcohol or drug abuse patient.[facility] CenterIn the event this information is protected by the Federal Confidentiality of Alcohol and Drug Abuse Patient Records regulations: The Federal rules restrict any use of the information to criminally investigate or prosecute any alcohol or drug abuse patient.[facility] CenterIn the event this information is protected by the Federal Confidentiality of Alcohol and Drug Abuse Patient Records regulations: The Federal rules restrict any use of the information to criminally investigate or prosecute any alcohol or drug abuse patient.[facility] CenterIn the event this information is protected by the Federal Confidentiality of Alcohol and Drug Abuse Patient Records regulations: The Federal rules restrict any use of the information to criminally investigate or prosecute any alcohol or drug abuse patient.[facility] CenterIn the event this information is protected by the Federal Confidentiality of Alcohol and Drug Abuse Patient Records regulations: The Federal rules restrict any use of the information to criminally investigate or prosecute any alcohol or drug abuse patient.[facility] CenterIn the event this information is protected by the Federal Confidentiality of Alcohol and Drug Abuse Patient Records regulations: The Federal rules restrict any use of the information to criminally investigate or prosecute any alcohol or drug abuse patient.[facility] CenterIn the event this information is protected by the Federal Confidentiality of Alcohol and Drug Abuse Patient Records regulations: The Federal rules restrict any use of the information to criminally investigate or prosecute any alcohol or drug abuse patient.[facility] CenterIn the event this information is protected by the Federal Confidentiality of Alcohol and Drug Abuse Patient Records regulations: The Federal rules restrict any use of the information to criminally investigate or prosecute any alcohol or drug abuse patient.[facility] CenterIn the event this information is protected by the Federal Confidentiality of Alcohol and Drug Abuse Patient Records regulations: The Federal rules restrict any use of the information to criminally investigate or prosecute any alcohol or drug abuse patient.[facility] CenterIn the event this information is protected by the Federal Confidentiality of Alcohol and Drug Abuse Patient Records regulations: The Federal rules restrict any use of the information to criminally investigate or prosecute any alcohol or drug abuse patient.[facility] CenterIn the event this information is protected by the Federal Confidentiality of Alcohol and Drug Abuse Patient Records regulations: The Federal rules restrict any use of the information to criminally investigate or prosecute any alcohol or drug abuse patient.[facility] CenterIn the event this information is protected by the Federal Confidentiality of Alcohol and Drug Abuse Patient Records regulations: The Federal rules restrict any use of the information to criminally investigate or prosecute any alcohol or drug abuse patient.[facility] CenterIn the event this information is protected by the Federal Confidentiality of Alcohol and Drug Abuse Patient Records regulations: The Federal rules restrict any use of the information to criminally investigate or prosecute any alcohol or drug abuse patient.[facility] CenterIn the event this information is protected by the Federal Confidentiality of Alcohol and Drug Abuse Patient Records regulations: The Federal rules restrict any use of the information to criminally investigate or prosecute any alcohol or drug abuse patient.[facility] CenterIn the event this information is protected by the Federal Confidentiality of Alcohol and Drug Abuse Patient Records regulations: The Federal rules restrict any use of the information to criminally investigate or prosecute any alcohol or drug abuse patient.[facility] CenterIn the event this information is protected by the Federal Confidentiality of Alcohol and Drug Abuse Patient Records regulations: The Federal rules restrict any use of the information to criminally investigate or prosecute any alcohol or drug abuse patient.[facility] CenterIn the event this information is protected by the Federal Confidentiality of Alcohol and Drug Abuse Patient Records regulations: The Federal rules restrict any use of the information to criminally investigate or prosecute any alcohol or drug abuse patient.[facility] CenterIn the event this information is protected by the Federal Confidentiality of Alcohol and Drug Abuse Patient Records regulations: The Federal rules restrict any use of the information to criminally investigate or prosecute any alcohol or drug abuse patient.[facility] CenterIn the event this information is protected by the Federal Confidentiality of Alcohol and Drug Abuse Patient Records regulations: The Federal rules restrict any use of the information to criminally investigate or prosecute any alcohol or drug abuse patient.[facility] CenterIn the event this information is protected by the Federal Confidentiality of Alcohol and Drug Abuse Patient Records regulations: The Federal rules restrict any use of the information to criminally investigate or prosecute any alcohol or drug abuse patient.[facility] CenterIn the event this information is protected by the Federal Confidentiality of Alcohol and Drug Abuse Patient Records regulations: The Federal rules restrict any use of the information to criminally investigate or prosecute any alcohol or drug abuse patient.[facility] CenterIn the event this information is protected by the Federal Confidentiality of Alcohol and Drug Abuse Patient Records regulations: The Federal rules restrict any use of the information to criminally investigate or prosecute any alcohol or drug abuse patient.[facility] CenterIn the event this information is protected by the Federal Confidentiality of Alcohol and Drug Abuse Patient Records regulations: The Federal rules restrict any use of the information to criminally investigate or prosecute any alcohol or drug abuse patient.[facility] Reason for Visit (unrecogniz ed section and content) ReasonCommentsPatient EducationPVIReasonCommentsTransmitter3 monthsReason CommentsPost Ct Program Call - Needs AttnReasonCommentschest discomfort after ablationReasonOnset DateCommentsRefill Jlaaicp80/28/2022ReasonOnset DateComments Refill Qbaywmu61/29/2022ReasonCommentsAtrial FibrillationReasonCommentsRadiology CTSpecialtyDiagnoses / ProceduresReferred By ContactReferred To ContactCT IMAGING Diagnoses Persistent atrial fibrillation (HCC) Procedures CT PULMONARY VEIN W IVCON CT HEART CONTRAST EVAL CARDIAC STRUCTURE&MORPH 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 APRN.MIXING TANK OPERATOR [address] [place] [address] Ct Imaging Referral IDStatusReasonStart DateExpiration DateVisits RequestedVisits [id number] Auto-Generated Referral /[id number] Patient Follow-Upresults form CT scanReasonCommentsEstablished Patient6 week follow upReasonCommentsCardiology Follow UpReasonCommentsPatient UpdateReasonCommentsResultsReasonComments Cardiology Follow UpReasonCommentsRefill RequestReasonOnset DateCommentsRefill Ntisztp3810/13/2022ReasonCommentsPatient QuestionReasonCommentsFollow UpReason Hytjkeez5kt po colonoscopyReasonCommentsKnee PainReasonCommentsBack PainReason CommentsConsultScreening colonoscopySpecialtyDiagnoses / ProceduresReferred By ContactReferred To ContactGeneral Surgery Diagnoses Screening for malignant neoplasm of colon Procedures RI OFFICE/OUTPATIENT NEW HIGH MDM 60 MINUTES Linda Jansen, PA 112 [facility] [address] [place] [address] Grace Bucio MD [address] [place] [address] Referral IDStatusReasonStart DateExpiration DateVisits RequestedVisits [id number] Specialty Services Required /[id number] PainPost-opReasonCommentsKnee Pain Post-opPainReasonCommentsPainReasonOnset DateCommentsRefill Udbdmht8801/01/2025 Care Teams (unrecognized sec tion and content) Team MemberRelationshipSpecialtyStart [place] [address] [place] [address] Primary Staff PhysicianCardiology03/22/22Team MemberRelationshipSpecialtyStart [place] [address] [place] [address] Primary Staff PhysicianCardiology03/22/22Team MemberRelationshipSpecialtyStart [place] [address] [place] [address] Primary Staff PhysicianCardiology03/22/22Team MemberRelationshipSpecialtyStart Date[place] [id number] [place] [address] Primary Staff PhysicianCardiology03/22/22Team MemberRelationshipSpecialtyStart DateEnd Date Ita Tuttle [place] [id number] [place] [address] Primary Staff PhysicianCardiology03/22/22Team MemberRelationshipSpecialtyStart DateEnd Date Ita Tuttle MD [address] [place] [address] Primary Staff PhysicianCardiology03/22/22Team MemberRelationshipSpecialtyStart DateEnd Date [place]uttle [place] [id number] [place] [address] Primary Staff PhysicianCardiology03/22/22Team MemberRelationshipSpecialtyStart DateEnd Date Ita Tuttle MD [address] [place] [address] Primary Staff PhysicianCardiology03/22/22Team MemberRelationshipSpecialtyStart DateEnd Date Ita Tuttle MD [id number] [place] [address] Primary Staff PhysicianCardiology03/22/22Team MemberRelationshipSpecialtyStart DateEnd Date Ita [place]uttle [place] [id number] [place] [address] Primary Staff PhysicianCardiology03/22/22Team MemberRelationshipSpecialtyStart [place] [address] [place] [address] Primary Staff PhysicianCardiology03/22/22Team MemberRelationshipSpecialtyStart [place] [address] [place] [address] Primary Staff PhysicianCardiology03/22/22Team MemberRelationshipSpecialtyStart [place] [address] [place] [address] Primary Staff PhysicianCardiology03/22/22Team MemberRelationshipSpecialtyStart [place] [address] [place] [address] Primary Staff PhysicianCardiology03/22/22Team MemberRelationshipSpecialtyStart DateEnd Date Ita Tuttle [place] [id number] [place] [address] Primary Staff PhysicianCardiology03/22/22Team MemberRelationshipSpecialtyStart [place] [address] [place] [address] Primary Staff PhysicianCardiology03/22/22Team MemberRelationshipSpecialtyStart [place] [address] [place] [address] Primary Staff PhysicianCardiology7/29/22Team MemberRelationshipSpecialtyStart [place] [address] [place] [address] Primary Staff PhysicianCardiology03/22/22 Team Status: Active Member Role Status Dates Linda Jansen PA-C Primary Care Provider Active Team Status: Active Member Role Status Dates Sedrick Ye MD Primary Care Provider Active S tart: January 23, 2024 Christian Carlos II, DOAttending ProviderActiveStart: January 23, 2024 Linda Jansen CANVAS CUTTER-CReferring ProviderActiveStart: January 23, 2024 Team Status: Inactive Member Role Status Dates Christian Carlos II, DO Attending Provider Active Start: January 23, 2024 End: January 23, 2024[facility], Referring Provider ActiveStart: January 23, 2024 End: January 23, 2024Team MemberRelationshipSpecialtyStart [place] [address] [place] [address] Primary Staff PhysicianCardiology03/22/22Team MemberRelationshipSpecialtyStart [place] [address] [place] [address] Primary Staff PhysicianCardiology03/22/22 Team Status: Active Member Role Status Dates Sedrick Ye MD Primary Care Provider Active S tart: April 23, 2024 Christian Carlos II, DOAttending ProviderActiveStart: April 23, 2024 Linda Jansen CANVAS CUTTER-CReferring ProviderActiveStart: April 23, 2024 Team Status: Inactive Member Role Status Dates Irene Solares APRN Attending Provider Acti ve Start: April 23, 2024 End: April 23, 2024Team MemberRelationshipSpecialtyStart DateEnd Date Linda Jansen, PA [address] [place] [address] PCP - [facility]08/06/23 Linda Jansen PA [address] [place] [address] PCP - [facility]/Team MemberRelationshipSpecialty Start DateEnd Date Linda Jansen PA [address] [place] [address] PCP - [facility]08/06/23 Linda Jansen PA [address] [place] [address] PCP - [facility]02/23/2312Team MemberRelationshipSpecialty Start DateEnd Date Linda Jansen, PA [address] [place] [address] PCP - [facility]08/06/23 Linda Jansen, PA [address] [place] [address] PCP - [facility]02/23/2312Team MemberRelationshipSpecialty Start DateEnd Date Linda Jansen, PA [address] [place] [address] PCP - [facility]08/06/23 Linda Jansen PA [address] [place] [address] PCP - [facility] [employer]02/23/2312Team MemberRelationshipSpecialty Start DateEnd Date Linda Jansen PA [address] [place] [address] [facility] Yhnsatqh15/13/23 Linda Jansen PA [address] [place] [address] PCP - Medical [facility]02/23/2312Team MemberRelationshipSpecialty Start DateEnd Date Linda Jansen PA [address] [facility] [address] [place] [address] [facility] Linda Jansen PA [address] [facility] [address] [place] [address] PCP - [facility] [employer]02/23/2312Team MemberRelationshipSpecialty [place] [address] [place], [place] [address] Primary Staff PhysicianCardiology03/22/22Team MemberRelationshipSpecialtyStart DateEnd Date Linda Jansen PA [address] [place] [address] PCP - [facility]08/06/23 Linda Jansen PA [address] [place] [address] PCP - [facility] [employer]02/23/2312Team MemberRelationshipSpecialty Start DateEnd Date Linda Jansen PA [address] [place] [address] PCP - GeneralFamily Ftibezjc00/13/23Team MemberRelationshipSpecialtyStart Date End Date Linda Jansen PA [address] [place] [address] PCP - GeneralFamily Mrgwcmhc59/13/23Team MemberRelationshipSpecialtyStart Date End Date Linda Jansen PA [address] [facility] [address] [place] [address] PCP - GeneralFamily Oqhhlzxj18/13/23Team MemberRelationshipSpecialtyStart Date End Date Linda Jansen PA [address] [place] [address] PCP - GeneralFamily Wtusspdo95/13/23 Linda Jansen PA [address] [facility] [address] [place] [address] PCP - [facility] [employer]02/23/2312Team MemberRelationshipSpecialty [place] [address] [place] [address] Primary Staff PhysicianCardiology03/22/22Team MemberRelationshipSpecialtyStart DateEnd Date Linda Jansen PA [address] [facility] [address] [place] [address] PCP - GeneralFamily Jftmzjud03/13/23 Linda Jansen PA [address] [address] PCP - Medical [employer]02/23/2312 Team Status: Active Member Role Status Dates NON STAFF Primary Care Provider Active Team Status: Active Member Role Status Dates Sedrick Ye MD Primary Care Provider Active S tart: November 12, 2024 Christian Carlos II, DOAttending ProviderActiveStart: November 12, 2024 Linda Jansen , CANVAS CUTTER-CReferring ProviderActiveStart: November 12, 2024 Team Status: Inactive Member Role Status Dates NON STAFF Primary Care Provider Active Start: November 30, 2024 End: November 30ashleigh Gómez - CHC , DO CHCAttending ProviderActiveStart: November 30, 2024 End: November 30, 2024Team MemberRelationshipSpecialtyStart [place] [address] [place] [address] Primary Staff PhysicianCardiology03/22/22Team MemberRelationshipSpecialtyStart DateEnd Date Linda Jansen PA [address] [place] [address] PCP - GeneralFamily Wsyivepd79/13/23 Linda Jansen PA [address] [place] [address] PCP - [facility] [employer]02/23/2312Team MemberRelationshipSpecialty Start DateEnd Date Linda Jansen PA [address] [place] [address] PCP - GeneralFamily Fqxndlhb95/13/23 Linda Jansen PA [address] [address] PCP - Medical [employer]02/23/2312 Team Status: Active Member Role Status Dates Linda Jansen CANVAS CUTTER-C Primary Care Provider Active Team Status: Inactive Member Role Status Dates Christian Carlos II, DO Attending Provider Active Start: January 21, 2025 End: January 21, 2025Linda Jansen CANVAS CUTTER-CPrimary Care ProviderActiveStart: January 21, 2025 End: January 21, 2025Linda Jansen CANVAS CUTTER-CReferring ProviderActiveStart: January 21, 2025 Team Status: Inactive Member Role Status Dates Linda Jansen CANVAS CUTTER-C Primary Care Provider Active Start: February 10, 2025 End: February 10, 2025Christian Carlos II, Attending ProviderActiveStart: February 10, 2025 End: February 10, 2025 Team Status: Inactive Member Role Status Dates Linda Jansen CANVAS CUTTER-C Primary Care Provider Active Start: February 19, 2025 End: February 19, 2025Clair Moss ProviderActiveStart: February 19, 2025 End: February 19, 2025Team MemberRelationshipSpecialtyStart DateEnd Date Linda Jansen PA [address] [address] [facility] Py[facility]69/13/23 Linda Jansne PA [address] [address] PCP - Medical [employer]02/23/2312 Team Status: Inactive Member Role Status Dates Christian Carlos II, DO Attending Provider Active Start: January 21, 2025 End: January 21, 2025Linda Jansen CANVAS CUTTER-CPrimary Care ProviderActiveStart: January 21, 2025 End: January 21, 2025 Team Status: Inactive Member Role Status Dates Linda Jansen CANVAS CUTTER-C Primary Care Provider Active Start: March 04, [...] Team MemberRelationshipSpecialtyStart [place] [address] [place] [address] Primary Staff PhysicianCardiology03/22/22Team MemberRelationshipSpecialtyStart DateEnd Date Linda Jansen PA [address] [address] [facility] - [facility] Wmdpkvsg11/13/23Team MemberRelationshipSpecialtyStart Date End Date Linda Jansen PA [address] [address] [facility] - [facility] Mzrptvqq45/13/23Team MemberRelationshipSpecialtyStart Date End Date Linda Jansen PA [address] [address] PCP - GeneralFamily Fmllapyn81/13/23 Team Status: Inactive Member Role Status Dates [...] Start: May 13, 2025 Linda Olmedojhonatan , CANVAS CUTTER-CPrimary Care ProviderActiveStart: May 13, 2025 Linda Jansen , CANVAS CUTTER-CReferring ProviderActiveStart: May 13, 2025 Team Status: Inactive Member Role Status Dates Linda Jansen CANVAS CUTTER-C Primary Care Provider Active Start: May 27, 2025 End: May 27, 2025Keithmoise Carlos II, DOAttending ProviderActiveStart: May 27, 2025 End: May 27, 2025 Team Status: Active Member Role Status Dates Christian Carlos II DO Attending Provider Active Start: May 27, 2025 Linda Jansen CANVAS CUTTER-CPrimary Care ProviderActiveStart: May 27, 2025 Linda Olmedojhonatan CANVAS CUTTER-CReferring ProviderActiveStart: May 27, 2025 Team MemberRelationshipSpecialtyStart DateEnd Date Linda Jansen PA [address] [facility] [address] [place] [address] [facility] - [facility] Jocuxifp86/13/23 Linda Jansen PA [address] [facility] [address] [place] [address] PCP - Medical [facility] Goals (unrecognized section and content) Goals may [...] BE BASED ON THE PRIMARY CLINICAL RECORDS. [employer] [facility]. provides no warranty or guarantee of the accuracy or completeness of information in this document.
== END 2025-07-15 11:16 | disposition home or self-care (01) ==
LOC: FHNEUROLOG 11:15
PROVIDERS: PCP Physician Assistant; Visit Provider Psychiatry & Neurology Neurology
DX: G47.33 Obstructive sleep apnea (adult) (pediatric) (principal)
CPT/HCPCS: G0463

== ENCOUNTER 2025-07-22 06:12 | Outpatient (OUT) | payer MEDICARE, SELFPAY ==
--- OUTSIDE RECORDS SUMMARY | 2025-07-15 11:16 | XMS_ITS | Continuity of Care Document ---
Author Organization [facility] Address [address] [place] [address] Phone Care Team Providers Care Electrical Continuity Inspector Name Role Phone Linda Jansen ACCOUNTING SPECIALIST-C Primary Care Provider Christian Carlos II, DO Attending Provider Care Teams Patient Care Team Team Status: Active Member Role/Relationship Status Dates Linda Jansen NP-C Primary Care Provider Active Visit Care Team Team Status: Inactive Member Role/Relationship Status Dates Linda Jansen ACCOUNTING SPECIALIST-C Primary Care Provider Active Start: July 08, 2025 End: July 08, 2025Christian Carlos II, DOAttending ProviderActiveStart: July 08, 2025 End: July 08, 2025 Chief Complaint and Reason for Visit Chief Complaint Admit Date Follow Up 6 Weeks July 08, 2025 9:13am Allergies, Adverse Reactions, Alerts Allergen Type Severity Reaction Last Updated Verified Status No Known Allergies Allergy Unknown July 08, 2025 9:24amYesActive Social History Smoking Status Status Start Date End Date Date of Observa tion Never smoked tobacco (finding) February 19, 2025 9:39am Observation Status Observation Response Date of Response Legal Sex Male (finding) Sex Assigned At BirthMaleJanuary 1960 Family History Relationship Condition Age at Onset Recorded Date/T nalini father Alexandria's disease Unknown fatherDeceasedUnknownmotherDeceasedUnknownMalignant neoplasmUnknowngrandparent Malignant neoplasm of pancreasUnknown Problems Active Problems Problem Diagnosis/Recorded Date Onset Date Status C omments Finger pain July 24, 2024 10:43am Unknown Active CLL (chronic lymphocytic leukemia)May 13, 2025 10:25amUnknownActive Autoimmune hemolytic anemiaSept2024 10:25amUnknownActive LymphocytosisJune 2023 12:41pmUnknownActiveFracture of finger, left, closed July 24, 2024 12:26pmUnknownActiveContact dermatitisJune 2024 9:07am UnknownActiveInactive/Resolved Problems Problem Diagnosis/Recorded Date Onset Date Status C omments COVID-19 July 28, 2021 4:47pm Unknown Resolved [...] 11:00pmOctober 2024 12:19pmFolic Acid 1 mg tablet Btkbxmhbgqwh3PUKLFhdql930Csaczmcwx 11th, 2025 11:00pmOctober 2024 7:17am Folic Acid 1 mg waiiaeNayrph0DMAMPxcpr073Mhstyqf 2024 7:17amUnknown Furosemide 40 mg emoccuRpyictiufkga55ZTSEWthkx morningNov2019 12:00amMay 2023 1:06pmHydrocodone-Acetaminophen (Solen) 5-325 mg tablet Discontinued1 - 2TABPOEVERY 4-6 HOURS as needed for Ohtg5529LbprabpwJuly 14, 2020 August 28, 2021 2:10pmPostoperative pain of extremity Mass of wrist Other acute postprocedural pain Localized swelling, mass and lump, unspecified upper limbDoxycycline Hyclate 100 mg bmdmqlKnrdwjvgexof895PHPJXsxyz vmvvi9848Xfjktlrq 20th, 2020 12:00amJanuary 2021 2:10pmNifedipine 30 mg Tablet Extended Release 38zqJhoets40RVGSKfhur October 02, 2018 12:00amUnknownAspirin 81 mg Tablet,Delayed Release (Dr/Ec) Djuqqeizadwq89RGVEZxmeoDrwuzcvk 2018 12:00amSeptember 2019 7:52am Losartan-Hydrochlorothiazide 100-25 mg bynsyrCwdzjzyxucll2GOXKDPmoibBtwfzgib 2018 12:00amSeptember 2019 7:43amMetoprolol Tartrate 50 mg Tablet Ozskfufuktqn07XBLHFcvip dailyFebruary 2018 12:00amSeptember 2019 12:58pmPotassium Chloride 20 mEq Tablet Extended QzlvcosKrxipgdxiwix93KMCCYLlnqk morningFebruary 2018 12:00amAugust 2023 1:59pmValsartan- Hydrochlorothiazide 320-25 mg HlrrudLunweyvospww9WAPUDBkplb morningSeptember 2019 11:00pmJuly 2024 1:54pmApixaban (Eliquis) 5 mg Tablet Wmmrwzqsluui8VKWUXumgb dailySeptember 2019 11:00pmMay 2023 1:05pm Furosemide 20 mg hsnfakEyhrixxalkhe64DCIJJzylf dailySeptember 2019 11:00pm July 06, 2020 4:50pmSotalol 80 mg JqiyhaCvkdeoxprbqy13CIWPI16T188609 May 04, 2020 11:00pmy 2023 1:06pmSildenafil (Viagra) 100 mg BfkuknTnotqtkxqmqa28JNSAYesaf as needed for Erectile DysfunctionJanuary 2021 12:00amNovember 2023 10:02amValsartan 320 mg xocpfdLriwodeuicjz532LC PODailyJuly 2024 11:00pmSeptember 2024 8:40amPrednisone 20 mg tablet Crxqai25YTJQEnnld2787Wtbvsho 3rd, 2025 12:18pmUnknownAspirin (Adult Low Dose Aspirin) 81 mg tablet,delayed release (DR/EC)Lgpouq68HJYFRazetLgw 2023 11:00pmUnknownNebivolol 5 mg xruwqiAohhif6CJAZDnsgrJqc 2023 11:00pmUnknown Doxazosin 4 mg fprzbqCbsshzpfmhjo4CZVDSajbl at bedtimeMa2023 11:00pm May 27, 2025 11:58amMeloxicam 15 mg gundwwYwxlpqmnayuy81ZLQMXqrerIjz 2023 11:00pmAugust 2023 1:59pmValsartan-Hydrochlorothiazide 320-25 mg gycwfnIdpjns3LUAKIJfnhsEhhfnivct 18th, 2025 11:00pmUnknown Vital Signs Vital Reading Result Reference Range Collection Date/Time Height 72 [in_i] July 08, 2025 9:09nuXmzovb28.62 kgNov2024 9:18amBody Tpmvkustbyo80.8 [degF]97.6-99.0July 08, 2025 9:18amHeart Rate84 /esu79-876 July 08, 2025 9:18amRespiratory rate16 /mmi64-59NzaqdvarJuly 08, 2025 9:18am Oxygen saturation by Pulse oowqmzno09 %95-100July 08, 2025 9:18amBP Dzpaqatb176 mm[Hg]100-140July 08, 2025 9:18amBP Oucmlvipd93 mm[Hg]60-100 July 08, 2025 9:18amBMI (Body Mass Index)27.3 kg/j0Reveyfde2024 9:18am Advance Directives Advance Directive Response Recorded Date/ Time Advance Directives No September 29, 2018 11:32am Insurance Providers Guarantor Yuri Chan Rl Address [address] [place] [id number] Info.Home Phone: Coverage Status Update:2025 Payer Group Member ID Coverage Type Subscriber Relationship to Subscriber Effective Date Expiration Date [employer] Id: [id number] S [place] Id: [id number] [address] [place] [id number] Home Phone: Email: [email or web address] Id: [id number] S [place] Id: [id number] [address] [place] [id number] Home Phone: Email: [email or web address] S [place] Id: [id number] [address] [place] [id number] Home Phone: Email: [email or web address] [id number] S Rl Id: [id number] [address] [place] [phone] Home Phone: Email: [email or web address] Encounters Encounter Location(s) Arrival/Admit Date Discharge/Departure Date Discharge/Departure Disposition Provider(s) Departed Physician/ Provider Office Visit -Cancer Center Ambulatory July 08, 2025 9:13am July 08, 2025 9:45am Discharged to home care or self care (routine discharge) Christian Carlos , MARLON DO Plan of Treatment Future Tests Future scheduled test information is unavailable Pending Tests Test Name Ordered Date Scheduled Date Comprehensive Metabolic Panel May 27, 2025 12:13pm Comprehensive Metabolic PanelOctober 2024 12:13pmComprehensive Metabolic PanelOctober 2024 12:13pmHaptoglobinOctober 2024 12:22pmHaptoglobin May 27, 2025 12:22pmType and ScreenOctober 2024 12:23pm6 Weeks Comprehensive Metabolic PanelNovember 2024 9:39am4 WeeksHaptoglobin July 08, 2025 9:39am4 WeeksComprehensive Metabolic PanelSeptember 2024 8:59amComprehensive Metabolic PanelSeptember 2024 8:59amComprehensive Metabolic PanelSeptember 2024 8:59amHaptoglobinSeptember 2024 9:01am Future Visits Future appointment information is unavailable Future Procedures Procedure Name Ordered Date Scheduled Date Complete Blood Count Auto Diff October 2024 12:13pm Complete Blood Count Auto DiffOctober 2024 12:13pmComplete Blood Count Auto DiffOctober 2024 12:13pmDirect CoombsOctober 2024 12:22pm6 WeeksLDH Lactate DehydrogenaseOctober [...]
--- OUTSIDE RECORDS SUMMARY | 2025-07-18 08:30 | XMS_ITS | Encounter Summary ---
Author Organization [facility] Address [address] [place] [address] Care Team Providers Care Terrazzo Mechanic Helper Name Role Phone Penny Duran MD [facility] [phone] Source Comments In the event this information is protected by the Federal Confidentiality of Alcohol and Drug AbusePatient Records regulations: The Federal rules restrict any use of the information to criminally investigate or prosecute any alcohol or drug abuse patient.[facility] Reason for Visit * ReasonCommentsConsult Encounter Details DateTypeDepartmentCare Team (Latest Contact Info)Eefuyftzkca95/24/2025 8:30 AM ESTVisit (SP) Office Hematology/Oncology [address] [place] [id number] [place] [address] [place] [id number] CLL (chronic lymphocytic leukemia) (HCC) (Primary Dx) Social History Tobacco UseTypesPacks/DayYears UsedDateSmoking Tobacco: NeverSmokeless Tobacco: NeverAlcohol UseStandard Drinks/WeekCommentsNot Currently0 (1 standard drink = 0.6 oz pure alcohol)Area Deprivation IndexAnswerDate RecordedNational Score (1- 100), lower number is lower wiod4487/03/2023State Score (1-10), lower number is lower mnvc23212/25/2022ata from: https://www.neighborhoodatlas.medicine.[facility].edu/. Last address used for [address]i12/25/2022Sex and Gender InformationValueDate RecordedSex Assigned at BirthNot on fileLegal GmfSnyr21/08/2021 12:00 PM EDT Gender IdentityNot on fileSexual OrientationNot on filedocumented as of this encounter Last Filed Vital Signs Vital SignReadingTime TakenCommentsBlood Evyngplt015/ 8:22 AM EST Itfjq006707/18/2025 8:22 AM ZBVAdiqbqoeupp32.8 ??C (98.2 ??F)07/18/2025 8:22 AM ESTRespiratory Rate--Oxygen Nmcokyagea47%07/18/2025 8:22 AM ESTInhaled Oxygen Concentration--Insqyn64.2 kg (209 lb 14.1 oz)07/18/2025 8:22 AM ZFEMmzvor990.9 cm (6' 0.01 )07/18/2025 8:22 AM ESTBody Mass Index28.4607/18/2025 8:22 AM EST documented in this encounter Functional Status * Are you deaf or do you have serious difficulty hearing?AnswerDate of MkezpbztpbQorvssFn04/12/2022 11:08 AM Irene Velazquez RN * Are you blind or do you have serious difficulty seeing, even when wearing glasses?AnswerDate of NnwewxylsoLlmffkVn85/12/2022 11:08 AM Irene Velazquez RN * Do you have serious difficulty walking or climbing stairs?AnswerDate of WiisealaqhMtmtguLf23/12/2022 11:08 AM Irene Velazquez RN * Do you have difficulty dressing or bathing?AnswerDate of AssessmentAuthorNo 12/04/2021 11:08 AM Irene Velazquez RN * Because of a physical, mental, or emotional condition, do you have difficulty doing errands alone such as visiting a doctor's office or shopping?AnswerDate of CelboxfcvxBmduyjSk54/12/2022 11:08 AM Irene Velazquez RN documented as of this encounter Mental Status * Because of a physical, mental, or emotional condition, do you have serious difficulty concentrating, remembering, or making decisions?AnswerEntry Date KvuthrLf33/12/2022 11:08 AM Irene Velazquez RN documented in this encounter Progress Notes * Conner Richardson MD - 07/18/2025 8:17 AM EST CONSULT: ONCOLOGY SERVICE PATIENT NAME: Yuri Shine SERVICE DATE: 07/18/2025 SERVICE TIME: 8:17 AM PRIMARY CARE PHYSICIAN: No primary care provider on file. Consult requested by self for CLL. SUBJECTIVE Mr. Shine is a 64 year old male with CLL. He is on a tapering dose of prednisone. He is feeling well overall but is eager to come off prednisone as sson as possible. Patient feels feels well overall. Denies fevers, night sweat, unwanted weight loss and new pains. ROS: All other systems reviewed and negative beside what is noted in above HPI He is here to review w/u and possible treatment options. ECOG: = 0 ALLERGIES: No Known Allergies PMHx, PSHX, FHx and ROS are documented in Epic. All of these were reviewed and verified with patient. PHYSICAL EXAMINATION: comfortable, in no acute distress. Vitals: see above.The examination of the eyes revealed no jaundice. Examination of the mouth revealed no pathology. Examination of the lymphatic system reveals no enlarged cervical, clavicular or axillary lymph nodes. Cardiovascular exam: Regular rate and rhythm. Lungs: Clear to auscultation and percussion. Abdomen: Soft, bowel sounds present. No hepatosplenomegaly. Lower extremities: No edema. Neuro exam: Alert and oriented times 3. No focal neurological signs. Skin: No rash or lesions. 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 Reviewed diagnosis, prognosis and the pros/cons of available treatment options with patient and son. PLAN: 1-Continue prednisone taper as recommended by Dr Carlos 2-Treatment with gazyva/venetoclax is reasonable in the future (or acalbrutinib/venetoclax when FDAapproved) 3-Continue FU with Dr Carlos. I am available in the future if needed I spent a total of 40 minutes on the date of the service which included preparing to see the patient, qbmy-of-tdve patient care, completing clinical documentation, obtaining and/or reviewing separately obtained history, performing a medically appropriate examination, counseling and educating the pat ient, ordering medications, tests and care coordination (not separately reported). Conner Richardson MD CC: Linda Jansen, PECAN PICKER-C (2024November 2024 - Present) [address] [facility] [address] [place] [address] documented in this encounter Plan of Treatment DateTypeDepartmentCare Team (Latest Contact Info)Zaytwxxtwaj69/12/2026 8:00 AM EDTOffice Visit Cardiology [address] [place] [address] [place] [address] [place] [address] yearly follow updocumented as of this encounter Visit Diagnoses Diagnosis CLL (chronic lymphocytic leukemia) (HCC)- Primary Chronic lymphoid leukemia, without mention of having achieved remission documented in this encounter Care Teams Team MemberRelationshipSpecialtyStart [place] [address] [place] [address] Primary Staff PhysicianCardiology03/22/22documented as of this encounter
--- OUTSIDE RECORDS SUMMARY | 2025-07-22 06:17 | XMS_ITS | Encounter Summary ---
Author Organization [facility] Address [address] [place] [address] Care Team Providers Care Services Manager Name Role Phone Linda Jansen Primary Care Provider [phone] Encounter Details DateTypeDepartmentCare Team (Latest Contact Info)Xpshrfyfxzx12/17/2025bstract [facility] [address] [place] [address] Linda Jansen PA [address] [place] [address] Social History Tobacco UseTypesPacks/DayYears UsedDateSmoking Tobacco: NeverSmokeless [...] times a week08/06/2023How often do you attend faith or jain services?1 to 4 times per year08/06/2023o you belong to any clubs or organizations such as faith groups, unions, fraternal or athletic groups, or [...] at all 08/06/2023HQ-2AnswerDate RecordedPatient Health Questionnaire-2 Score0 03/01/2025[facility] - Occupational Stress QuestionnaireAnswerDate RecordedDo you feel stress - tense, restless, nervous, or anxious, or unable to sleep at night because yourmind is troubled all the time - these days?Only a kvbkmj7108/06/2023Exercise Vital SignAnswerDate Recorded On average, how many [...] MemberRelationshipSpecialtyStart DateEnd Date Linda Jansen PA 112 [facility] [address] [place] [address] PCP - GeneralFamily Vakjbjyg80/13/23documented as of this encounter
--- OUTSIDE RECORDS SUMMARY | 2025-07-22 06:17 | XMS_ITS | Clinical Summary ---
Author Organization [employer] Address [facility] [id number] [address] [place] [address] Care Team Providers Care Acute Care Surgeon Name Role Phone Unavailable Primary Care Provider Unavailabl e Social History Tobacco UseTypesPacks/DayYears UsedDateSmoking Tobacco: Never AssessedChildcare AnswerDate TcubnkykSdbfsjuynUzlldxg42/12/2019EmploymentAnswerDate Recorded IsmtbubfooZvvnelo74/12/2019Sex and Gender InformationValueDate RecordedSex Assigned at BirthNot on fileLegal XbvMnzd5003/30/2015 11:55 AM EDTGender Identity Not on fileSexual OrientationNot on file Plan of Treatment Health MaintenanceDue DateLast DoneCommentsDepression Tbcphzhrs16/27/1972Tobacco Yyjmbycsm19/27/1972Adult BMI Vbffqykpa38/27/1978DTaP,Tdap and Td Vaccines (1 - Tdap)1978Zoster (Shingles) Vaccine (1 of 2)2009Fall Risk Screening 2024Influenza Fcwxcyl51, 05/25/2019, 06/10/2018RSV ( or age 60+ yrs) (1 - 1-dose 75+ series)2034 Medical Devices Not on file Insurance
--- OUTSIDE RECORDS SUMMARY | 2025-07-22 06:17 | XMS_ITS | Encounter Summary ---
Author Organization [facility] Address [address] [place] [address] Care Team Providers Care Siderographer Name Role Phone Penny Duran MD [facility] [phone] Source Comments In the event this information is protected by the Federal Confidentiality of Alcohol and Drug AbusePatient Records regulations: The Federal rules restrict any use of the information to criminally investigate or prosecute any alcohol or drug abuse patient.[facility] Encounter Details DateTypeDepartmentCare Team (Latest Contact Info)Htlbdhhjnev30/17/2025Travel Social History Tobacco UseTypesPacks/DayYears UsedDateSmoking Tobacco: NeverSmokeless Tobacco: NeverAlcohol UseStandard Drinks/WeekCommentsNot Currently0 (1 standard drink = 0.6 oz pure alcohol)Area Deprivation IndexAnswerDate RecordedNational Score (1- 100), lower number is lower raqn796212/25/2022State Score (1-10), lower number is lower qexf8283Data from: https://www.neighborhoodatlas.medicine.[facility].edu/. Last address used for [address] [facility]12/25/2022Sex and Gender InformationValueDate RecordedSex Assigned at BirthNot on fileLegal RpgLlhc36/08/2021 12:00 PM EDT Gender IdentityNot on fileSexual OrientationNot on filedocumented as of this encounter Functional Status * Are you deaf or do you have serious difficulty hearing?AnswerDate of EdxywbpxtdNydipcHr61/12/2022 11:08 AM Irene Velazquez RN * Are you blind or do you have serious difficulty seeing, even when wearing glasses?AnswerDate of FwujmamuhbUtnmjuSd73/12/2022 11:08 AM Irene Velazquez RN * Do you have serious difficulty walking or climbing stairs?AnswerDate of QqqtrrxgatRpjqbmZl88/12/2022 11:08 AM Irene Velazquez RN * Do you have difficulty dressing or bathing?AnswerDate of AssessmentAuthorNo 12/04/2021 11:08 AM Irene Velazquez RN * Because of a physical, mental, or emotional condition, do you have difficulty doing errands alone such as visiting a doctor's office or shopping?AnswerDate of HfzkuxiaqbVtjktdDi97/12/2022 11:08 AM Irene Velazquez RN documented as of this encounter Mental Status * Because of a physical, mental, or emotional condition, do you have serious difficulty concentrating, remembering, or making decisions?AnswerEntry Date UmbaorDp99/12/2022 11:08 AM Irene Velazquez RN documented in this encounter Plan of Treatment DateTypeDepartmentCare Team (Latest Contact Info)Vatcjxenjhg82/12/2026 8:00 AM EDTOffice Visit Cardiology [address] [place] [address] [place] [address] [place] [address] yearly follow updocumented as of this encounter Visit Diagnoses Not on filedocumented in this encounter Care Teams Team MemberRelationshipSpecialtyStart [place] [address] [place] [address] Primary Staff PhysicianCardiology03/22/22documented as of this encounter
--- OUTSIDE RECORDS SUMMARY | 2025-07-22 06:17 | XMS_ITS | Patient Health Record ---
Author Organization [facility] [place] Address [address] [place] [address] Care Team Providers Care Treating Plant Pumper Name Role Phone Vivien Ye MD Primary [...] o steoarthritis of the ankle and/or foot (419236301) Primary osteoarthritis, unspecified ankle and foot (M19.079) Activeconfirmed Plan Of Treatment No Information Insurance Providers Payer Name Payer Address Payer Phone Subscriber Number Group Number Insured Name Patient Relationship to Insured Coverage Start Date Coverage End Date [employer] [id number] [place] [id number] 2022 Yuri Shine Self - patient is the insured Medical (General) History Medical History History ICD Code Essential (primary) hypertension I10 Kidney Stone Surgical History Surgery Date(Month/Year) Kidney Stone Removal 05/17 Hospitalization History Reason Date(Month/Year) see above
--- OUTSIDE RECORDS SUMMARY | 2025-07-22 06:17 | XMS_ITS | Clinical Summary ---
Author Organization [facility] Address [address] [place] [address] Care Team Providers Care Clinical Education Manager Name Role Phone Ita Tuttle MD [facility] [phone] Allergies No known active allergies Medications MedicationSigDispense QuantityRefillsLast FilledStart DateEnd DateStatus sildenafil citrate (VIAGRA ORAL) Take by mouth as needed.Active aspirin, enteric coated (ASPIRIN, ENTERIC COATED) 81 mg EC tablet Take 81 mg by mouth.07/30/2013ctive doxazosin (CARDURA) 4 mg tablet TAKE 1 [...] by mouth once daily. 30 tablet 5Active folic acid 1 mg tablet Take 1 mg by mouth once daily.5Active predniSONE (DELTASONE) 20 mg tablet Take 20 mg by mouth once daily.5Active meloxicam (MOBIC) 15 mg tablet TAKE 1 TABLET (15 MG) BY MOUTH DAILY NEEDED FOR MILD PAIN/ Discontinued Active Problems ProblemNoted DateDiagnosed DatePONV (postoperative nausea and vomiting) 2Atrial fibrillation, ubovkbytkt49/03/2022Benign essential HTN 2OSA (obstructive sleep apnea)09/27/2021 Encounters DateTypeDepartmentCare IqpkVgnjozhrqkz80/24/2025 8:30 AM ESTVisit (SP) Office Hematology/Oncology [address] [address] Conner Richardson MD CLL (chronic lymphocytic leukemia) (HCC) (Primary Dx)07/11/20252407Isrcvg39/15/2025 Refill Cardiology [address] [place] [address] WattaIta morales MD Refill Rkaeypj7906/08/2025Refill Cardiology [address] [place] [address] WattaIta morales MD Refill Yrvqavn3606/08/2025Travelfrom Last 3 Months Immunizations ImmunizationAdministration DatesNext Duehepatitis [...] RecordedNational Score (1-100), lower number is lower hcmw328812/25/2022State Score (1-10), lower number is lower kmpy4513Data from: https://www.neighborhoodatlas.medicine.[facility].edu/. Last address used for [address] [place], [place] [address]/25/2022Sex and Gender InformationValueDate RecordedSex Assigned at BirthNot on fileLegal SexMale 06/01/2021 12:00 PM EDTGender IdentityNot on fileSexual OrientationNot on file Last Filed Vital Signs Vital SignReadingTime TakenCommentsBlood Zdhieqal246/6607/18/2025 8:22 AM EST Rlkam734607/18/2025 8:22 AM BIRMshahgiwaxq50.8 ??C (98.2 ??F)07/18/2025 8:22 AM ESTRespiratory Ssml026110/03/2023 1:23 PM ESTOxygen Otzrdsmjdz23%07/18/2025 8:22 AM ESTInhaled Oxygen Concentration--Hzfvrl22.2 kg (209 lb 14.1 oz)07/18/2025 8:22 AM GPOEyyayh930.9 cm (6' 0.01 )07/18/2025 8:22 AM ESTBody Mass Index28.46 07/18/2025 8:22 AM EST Plan of Treatment DateTypeDepartmentCare Team (Latest Contact Info)Hexlcskegfs07/12/2026 8:00 AM EDTOffice Visit Cardiology [address] [place] [address] Wattar, [place] [address] [place], [place] [phone] yearly follow upHealth MaintenanceDue DateLast DoneCommentsAnnual PCP Team Chronic Disease Visit1977Anxiety Qcixsoesp07/27/1978Depression Screening 1977HIV Bvqbmebzk41/27/1978Hepatitis C Hbnnpdxxf69/27/1978DTaP,Tdap,Td Vaccine (1 - Tdap)1978CT Zrsszfmorxgg66/27/2005Cologuard (FIT-DNA) 09/20/20046946Balicdutzor53/27/2005Colorectal Cancer Hjgalrnxc25/27/2005Fecal Occult Blood09/20/20048767Mycuhokvhpjau71/27/2005Pneumococcal Vaccine: 50+ (1 of 1 - PCV) 2009Shingrix Vaccine (1 of 2)2009dvance Directive Discussion 5Covid-19 Vaccine (1 - season)2025Influenza Vaccine (#1) 5109/19/2021, 06/10/2019, 05/25/2019, Additional history existsMedicare Annual Wellness Visit04/25/2025Lipid Tzplorfwe83/14/947557, 04/01/2022 Diabetes Sgjtovckb13, 03/18/2025, 02/10/2025, Additional history existsProstate Cancer Screening Yiwzvzhrkw83, 12/27/2022, 2RSV Vaccine (1 - 1-dose 75+ series)2034 Procedures Procedure NamePriorityDate/TimeAssociated DiagnosisCommentsLVEF TRANSTHORACIC SOXNKupnmna35/20/2025 10:33 AM EDT OQYXDhtpxlo41/20/2025 10:33 AM EDT PAF (paroxysmal atrial fibrillation) (HCC) BASIC METABOLIC TNHYSIauqivz63/23/2023 3:53 PM EST Hypertension, unspecified type LIPID PANEL, YMHEBWRLpopgtd18/08/2022 7:33 AM EDT Atherosclerosis from Last 3 [...] 11:45 AM EDT Echocardiography Report: Transthoracic Echo [facility] Date of service: 06/13/2025 10:33:42 AM DRESSER Ordering physician: ITA TUTTLE Exam indication: Sustained [...] no pericardial effusion. Authorizing ProviderResult TypeResult StatusIta HURTOFinal Result Performing OrganizationAddressCity/State/ZIP CodePhone Number [facility] [address] [place] [address] * LVEF TRANSTHORACIC ECHO (06/13/2025 10:33 AM EDT)ComponentValueRef RangeTest MethodAnalysis TimePerformed AtPathologist SignatureLV Ejection Jzmxoowp65% [facility] INSTITUTEComment: (2D biplane) EF > 52 An LV Ejection Fraction of > 50% is normal Specimen (Source)Anatomical Location / LateralityCollection Method / Volume Collection TimeReceived Time06/13/2025 10:33 AM EDT Narrative Authorizing ProviderResult TypeResult StatusIta Tuttle MDLVEF RESULTSFinal ResultPerforming OrganizationAddressCity/State/ZIP CodePhone Number [facility] [address] [place] [address] * (ABNORMAL) LIPID PANEL BASIC (04/01/2022 7:33 AM EDT)ComponentValueRef Range Test MethodAnalysis TimePerformed AtPathologist SignatureCholesterol, Vyzpf035 <200 mg/dL04/01/2022 7:01 PM [facility] LABComment: <200 mg/dL, Desirable 200-239 mg/dL, Borderline high >239 mg/dL, High Bfvbzqgewljd62<150 mg/dL04/01/2022 7:01 PM [facility] Comment: <150 mg/dL, Normal 150-199 mg/dL, Borderline high 200-499 mg/dL, High >499 mg/dL, Very high HDL Mjdzelkmklk05>39 mg/dL04/01/2022 7:01 PM [facility] Comment: 40-59 mg/dL, Acceptable >59 mg/dL, High: Negative risk factor for coronary heart disease <40 mg/dL, Low: Positive risk factor for coronary heart disease Non HDL Qlfjnwtgcur084<130 mg/dL04/01/2022 7:01 PM [facility] LABComment: <130 mg/dL, Optimal 130-159 mg/dL, Near optimal/above optimal 160-189 mg/dL, Borderline high 190-219 mg/dL, High >219 mg/dL, Very high Secondary prevention optimal non HDL Cholesterol levels are recommended to be <100 mg/dL Fasting Gvga29aqz59/08/2022 7:01 PM [facility] LAB[facility]DL Przlwhwfwmk34<30 mg/dL04/01/2022 7:01 PM [facility] TC:HDL Ratio3.33<5.10004/01/2022 7:01 PM [facility] LABLDL Cholesterol, Frsxxeyepa120(H)<100 mg/dL04/01/2022 7:01 PM [facility] LABComment: <100 mg/dL, Optimal 100-129 mg/dL, Near optimal/above optimal 130-159 mg/dL, Borderline high 160-189 mg/dL, High >189 mg/dL, Very high Secondary prevention optimal LDL Cholesterol levels are recommended to be < 70 mg/dL LDL:HDL Ratio2.00<2.54004/01/2022 7:01 PM [facility] Comment: Reference: 1. National Cholesterol Education Program ATP III Guideline At-A-Glance Quick Desk Reference: National Heart, Lung, and Blood [place]. National Institutes of Health. 2001: NIH Publication No. 01-3305. 2. An International Atherosclerosis Society position paper: global recommendations for the management of dyslipidemia: executive summary, Atherosclerosis. 2014: 232(2):410-413. Specimen (Source)Anatomical Location / LateralityCollection Method / Volume Collection TimeReceived TimeBloodBLOOD SPECIMEN / UnknownVenipuncture / Unknown 04/01/2022 7:33 AM EDT04/01/2022 7:33 AM EDT Narrative Authorizing ProviderResult TypeResult StatusIta Tuttle MDLABORATORYFinal ResultPerforming OrganizationAddressCity/State/ZIP CodePhone Number [facility] [address] [place] [address], [facility] [address] [place] [phone] from Last 3 Months or Most Recently Relevant to Health Maintenance Insurance Care Teams Team MemberRelationshipSpecialty[place] [address] [place] [address] Primary Staff PhysicianCardiology03/22/22
--- OUTSIDE RECORDS SUMMARY | 2025-07-22 06:17 | XMS_ITS | Clinical Summary ---
Author Organization [facility] Address [address] [place] [address] Phone Care Team Providers Care Stock Wetter Name Role Phone Vivien Ye MD Primary Care Provider Social History Tobacco UseTypesPacks/DayYears UsedDateSmoking Tobacco: Never AssessedSex and Gender InformationValueDate RecordedSex Assigned at BirthNot on fileLegal Sex Male07/19/2022 8:47 AM ESTGender IdentityNot on fileSexual OrientationNot on file Last Filed Vital Signs Vital SignReadingTime TakenCommentsBlood Vtzuhbvw327/8401 2:04 PM EST Cbkrm933209/12/2021 2:04 PM ESTTemperature--Respiratory Rate--Oxygen Saturation-- Inhaled Oxygen Concentration--Mvcahq93.1 kg (203 lb)09/12/2021 2:04 PM ESTHeight 182.9 cm (6')09/12/2021 2:04 PM ESTBody Mass Index27.5301 2:04 PM EST Plan of Treatment Not on file Care Teams Team MemberRelationshipSpecialtyStart DateEnd Date Vivien Ye MD [address] [place] [address] PCP - General03/22/20
--- OUTSIDE RECORDS SUMMARY | 2025-07-22 06:17 | XMS_ITS | Encounter Summary ---
Author Organization [facility] Address [address] [place] [address] Care Team Providers Care Hobbies And Crafts Sales Representative Name Role Phone Linda Jansen Primary Care Provider [phone] Encounter Details DateTypeDepartmentCare Team (Latest Contact Info)Racziprwzxk61/24/2025bstract [facility] [address] [place] [address] Linda Jansen PA [address] [place] [address] Social History Tobacco UseTypesPacks/DayYears UsedDateSmoking Tobacco: NeverSmokeless [...] times a week08/06/2023How often do you attend hoahaoism or holiness services?1 to 4 times per year08/06/2023o you belong to any clubs or organizations such as hoahaoism groups, unions, fraternal or athletic groups, or [...] at all 08/06/2023HQ-2AnswerDate RecordedPatient Health Questionnaire-2 Score0 03/01/2025[facility] [place] [facility] - Occupational Stress QuestionnaireAnswerDate RecordedDo you feel stress - tense, restless, nervous, or anxious, or unable to sleep at night because yourmind is troubled all the time - these days?Only a xgvqrb2608/06/2023Exercise Vital SignAnswerDate Recorded On average, how many [...] MemberRelationshipSpecialtyStart DateEnd Date Linda Jansen PA [address] [facility] [address] [place] [address] PCP - GeneralFamily Lnmznbfm92/13/23documented as of this encounter
--- OUTSIDE RECORDS SUMMARY | 2025-07-22 06:17 | XMS_ITS | Clinical Summary ---
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 Take before meals. Do not crush, chew, or split.Active doxazosin (Cardura) 4 MG tablet Take 1 tablet by mouth at wftfzhk3305/25/2023ctive nebivolol (Bystolic) 5 MG tablet Take 5 [...] osteoarthritis, unspecified ankle and foot03/01/2025History of colon oafrnu2005/21/2024rteriosclerotic vascular disease 02/09/2024Erectile criawsowxub34/17/2024Lung mivnpd8202/09/2024History of hcjwiuprfrhjjjt00/17/2024History of COVID-19002/09/2024Other thrombophilia ([facility])02/09/2024Thoracic aortic lzofmfk4302/09/20244493Oytxosvcxbodr20/10/2024 Primary tkkkgdwpuxpw74/12/2023Sleep apnea08/05/2023ONV (postoperative nausea and vomiting)12/03/2021 Resolved Problems ProblemNoted DateDiagnosed DateResolved ZsmbPeufkbakjbvvhe61/17/202407/03/2025 Kfdmjig87/Screening for colorectal cswhby77/ Aufqwykekgebhp92/17/202407/03/2025Ureteral stone/OVID-19 /Mixed wjhvnqokthuvii68/12/202310/trial fibrillation /4024Nntmpbkujjvick21/21/202306/Kidney stone04/14/2023 02/09/2024 Encounters DateTypeDepartmentCare AjopVypayivkcyp43/24/2025bstract NOMS [facility] [address] [facility] [address] [place] [phone] Linda Jansen PA 07/11/2025bstract N[facility] [address] [facility] [address] [place] [phone] Linda Jansen PA 5Clinisync Result Encounter NOMS External Department Unsolicited Provider, Generic External Data 5Clinisync Result Encounter NOMS External Department Unsolicited Provider, Generic External Data 5Clinisync Result Encounter NOMS External Department Unsolicited Provider, Generic External Data 05/30/2025bstract [facility] [address] [facility] [address] [place] [phone] Linda Jansen, PA 05/27/2025bstract NOMS [facility] [address] [place] [facility] [place] [address] Christian Carlos DO 5Clinisync Result Encounter NOMS External Department Unsolicited Provider, Generic External Data 5Clinisync Result Encounter NOMS External Department Unsolicited Provider, Generic External Data 05/17/2025bstract NOMS [facility] [address] [facility] [address] [place] [address] Linda Jansen, PA 5Clinisync Result Encounter NOMS External Department Unsolicited Provider, Generic External Data 05/13/2025bstract NOMS [facility] [address] [facility] [address] [place] [phone] Linda Jansen, PA 05/12/2025External Result Encounter NOMS External Department Unsolicited Christian Carlos, DO 05/12/2025External Result Encounter NOMS External Department Unsolicited Christian Carlos, DO 05/12/2025External Result Encounter NOMS External Department Unsolicited Christian Carlos, DO 05/12/2025External Result Encounter NOMS External Department Unsolicited Christian Carlos, DO 5Clinisync Result Encounter NOMS External Department Unsolicited Provider, Generic External Data from Last 3 Months Immunizations ImmunizationAdministration DatesNext Rafitameghana B, adult01/29/2005,08/28/2004, 07/24/2004Influenza, injectable, quadrivalent, preservative free07/20/2022, 06/10/2019,06/10/2018Influenza, seasonal, ynhriiyllz05/01/2019 Family History Medical HistoryRelationNameCommentsCancerMotherDiane AustinRelationNameStatus CommentsMotherDiane Rl [...] times a week08/06/2023How often do you attend zoroastrian or denominational services?1 to 4 times per year08/06/2023o you belong to any clubs or organizations such as zoroastrian groups, unions, fraternal or athletic groups, or [...] at all 08/06/2023HQ-2AnswerDate RecordedPatient Health Questionnaire-2 Score0 03/01/2025[facility] [place] [facility] - Occupational Stress QuestionnaireAnswerDate RecordedDo you feel stress - tense, restless, nervous, or anxious, or unable to sleep at night because yourmind is troubled all the time - these days?Only a zjwitn7308/06/2023Exercise Vital SignAnswerDate Recorded On average, how many [...] steady place to sleep or slept in [facility] (including now)?No08/06/2023Sex and Gender InformationValueDate RecordedSex Assigned at BirthNot on fileLegal SexMale 11/06/2022 8:11 PM EDTGender IdentityNot on fileSexual OrientationNot on file Last Filed Vital Signs Vital SignReadingTime TakenCommentsBlood Czyztitm860/8407 9:26 AM EDT Xobfo0815/08/2025 9:26 AM YPIObktpytvxxf82.2 ??C (98.9 ??F)11/09/2024 10:32 AM EDTRespiratory Xyjj262503/01/2025 9:26 AM EDTOxygen Ndimrgoeso31%03/01/2025 9:26 AM EDTInhaled Oxygen Concentration--Mmeaix76.4 kg (199 lb 6.4 oz)03/01/2025 9:26 AM SUIMxyqit326.9 cm (6')03/01/2025 9:26 AM EDTBody Mass Index27.04003/01/2025 9:26 AM EDT Plan of Treatment Health MaintenanceDue DateLast DoneCommentsCT Gdadliatjyan46/27/1960FIT-DNA 1959FIT1959FOBT09/20/19594888Xzljolmurczyl29/27/1960COVID-19 Vaccine (#1)1964Pneumococcal Vaccine: 65+ Years (1 of 2 - PCV)1978Influenza Vaccine (#1)5109/19/2021, 06/10/2019, 05/25/2019, Additional history existsMedicare Annual Wellness (AWV)6003/01/2025, 4Colonoscopy 9010/02/2018, 10/02/2018Colorectal Cancer Mtymashuu78/08/2029 Procedures Procedure NamePriorityDate/TimeAssociated DiagnosisCommentsDAT IGGRoutine 07/07/2025 6:40 AM EST [facility] ANTIBODY TUGlmxjlp05/13/2025 6:40 AM EST PROTEIN ELECTRO.,CXbtvnxr55/13/2025 6:40 AM EST [facility] DIRECT ANTIGLOBULIN AGEGJfpnidc58/13/2025 6:40 AM EST [facility] RKQXZYAZUPTKyvemjg09/13/2025 6:40 AM EST ALL GUDFolnhzr82/13/2025 6:40 AM EST [facility] CMP (CMP) (FOR REMOTE [facility] USE)Jcwwljt6007/07/2025 6:40 AM EST ALL TYPE AND GINTRCTwmrdgl86/13/2025 6:40 AM EST ALL CBC WITH AUTO UUOOHtdlqts20/13/2025 6:40 AM EST [facility] TTIGYKLBWBZRjgwqrq87/31/2025 6:40 AM EDT MHPT NTGYMFDHCOWQQjegnfw50/31/2025 6:40 AM EDT ALL OGJKtflcqn92/31/2025 6:40 AM EDT CCF CMP (CMP) (FOR REMOTE [facility] USE)Tsswwap0306/24/2025 6:40 AM EDT ALL CBC WITH AUTO MTMZVmeaxcs00/31/2025 6:40 AM EDT [facility] CJBTJSLYAIYEbhnhui36/15/2025 6:45 AM EDT MHPT BTYAVXAAXNCXPvetwhn79/15/2025 6:45 AM EDT ALL CBC WITH AUTO LLJUGwrfgxx75/15/2025 6:45 AM EDT ALL PSPWcsulfp35/15/2025 6:45 AM EDT CCF CMP (CMP) (FOR REMOTE [facility] USE)Xehvuxu3106/08/2025 6:45 AM EDT [facility] UQUOPFUKBGMFwltabv00/02/2025 6:39 AM EDT CCF CMP (CMP) (FOR REMOTE [facility] USE)Hxkzowc3305/26/2025 6:39 AM EDT MHPT ORFPUVBBVYINKizzkoi14/02/2025 6:39 AM EDT ALL CBC WITH AUTO QALPDvzcjnx42/02/2025 6:39 AM EDT MHPT AWXRFPHBCIUXQhdaevo89/25/2025 6:34 AM EDT CCF CMP (CMP) (FOR REMOTE [facility] USE)Dbaskfv1005/19/2025 6:34 AM EDT ALL CBC WITH AUTO BEPYXpwnyrz56/25/2025 6:34 AM EDT MHPT INNTWTBSWAWKYzzlmzo86/22/2025 6:47 AM EDT CCF CMP (CMP) (FOR REMOTE [facility] USE)Vzpsrqs0005/16/2025 6:47 AM EDT ALL CBC WITH AUTO LOZWCsobuws02/22/2025 6:47 AM EDT US ABDOMEN LIMITED FDIRJB9305/12/2025 1:03 PM EDT KVSAYBKGNFKBaezamg96/18/2025 9:36 AM EDT SED RATE BY MODIFIED STPRNTBHIGGiciqso70/18/2025 9:36 AM EDT VIT. B12/FOLATE MWQQZXFDqvcdfx74/18/2025 9:36 AM EDT TRXGBSYBWietbfz75/18/2025 9:36 AM EDT SCAN AND TNDKudjrps47/18/2025 9:36 AM EDT IRON AND TOTAL IRON BINDING EOWWERRJEjhnzvf62/18/2025 9:36 AM EDT COMPREHENSIVE METABOLIC UPIRMQfdvbhy11/18/2025 9:36 AM EDT ALL MISCELLANEOUS PWOFAoeuack54/15/2025 9:02 AM EDT [facility] YJSIIEZSUQAFihvjpi15/15/2025 9:02 AM EDT ALL TYPE AND GWLKYINnqgdvc73/15/2025 9:02 AM EDT [facility] IRON AND IFYRAioghzw27/15/2025 9:02 AM EDT CCF UKLALYXVUsaqsym75/15/2025 9:02 AM EDT MHPT PDYVPPSBGXLEQdhqraa28/15/2025 9:02 AM EDT CCF CMP (CMP) (FOR REMOTE [facility] USE)Zgsdtsg2705/09/2025 9:02 AM EDT ALL CBC WITH AUTO ETTDUklqtji08/15/2025 9:02 AM EDT ALL SED NWKDQuugmqs02/15/2025 9:02 AM EDT COLONOSCOPY CJFRBPFWTDMajkymi54/08/2019 2:27 PM ESTfrom Last 3 Months or Most Recently Relevant to Health Maintenance Results * GRACY IGG (07/07/2025 6:40 AM EST)ComponentValueRef RangeTest MethodAnalysis TimePerformed AtPathologist SignatureDAT RESULTPOSITIVETBHSpecimen (Source) Anatomical Location / LateralityCollection Method / VolumeCollection Time Received Time07/07/2025 6:40 AM EST07/07/2025 6:42 AM EST Narrative CLINISYNC - 07/13/2025 2:50 PM EST [facility] , ?? Authorizing ProviderResult TypeResult StatusGeneric External Data ProviderLAB BLOOD ORDERABLESFinal ResultPerforming OrganizationAddressCity/State/ZIP Code Phone Number [facility] * (ABNORMAL) PROTEIN ELECTRO.,S (07/07/2025 6:40 AM EST)ComponentValueRef Range Test MethodAnalysis TimePerformed AtPathologist SignaturePROTEIN, TOTAL5.4(A) 6.0 - 8.5 g/dLTBHALBUMIN3.22.9 - 4.4 g/nRDYZPIRDE-5-NSILXIOK3.30.0 - 0.4 g/dL VCCLJTMH-9-ASVVVUFB4.50.4 - 1.0 g/dLTBHBETA GLOBULIN0.90.7 - 1.3 g/dLTBHGAMMA GLOBULIN0.50.4 - 1.8 g/dLTBHM-SPIKENot ObservedNot Observed g/dLTBHGLOBULIN, TOTAL2.22.2 - 3.9 g/dLTBHA/G RATIO1.50.7 - 1.7TBHPLEASE NOTE:Comment.TB Comment: Protein electrophoresis scan will follow via computer, mail, or internal communications manager delivery. Performed at: ?? - Lab[address] ??[id number] Manager Professional Development: Chad Mccall PhD, Phone: ??[phone] Specimen (Source)Anatomical Location / LateralityCollection Method / Volume Collection TimeReceived Time07/07/2025 6:40 AM EST07/07/2025 6:42 AM EST Narrative CLINISYNC - 07/08/2025 3:08 PM EST Authorizing ProviderResult TypeResult StatusGeneric External Data ProviderLAB BLOOD ORDERABLESFinal ResultPerforming OrganizationAddressCity/State/ZIP Code Phone Number ÁNGELA [facility] * (ABNORMAL) [facility] DIRECT ANTIGLOBULIN TEST (07/07/2025 6:40 AM EST)Component ValueRef RangeTest MethodAnalysis TimePerformed AtPathologist Signature POLYSPECIFIC AHG4+(A)TBHSpecimen (Source)Anatomical Location / Laterality Collection Method / VolumeCollection TimeReceived Time07/07/2025 6:40 AM EST 07/07/2025 6:42 AM EST Narrative CLINISYNC - 07/13/2025 2:50 PM EST [facility] , ?? Authorizing ProviderResult TypeResult StatusGeneric External Data Provider CLINISYNCFinal ResultPerforming OrganizationAddressty/State/ZIP CodePhone Number [facility] * [facility] HAPTOGLOBIN (07/07/2025 6:40 AM EST) Only the most recent of5 resultswithin the time period is included. ComponentValueRef RangeTest MethodAnalysis TimePerformed AtPathologist Signature ZWCMGBOQENN0034 - 363 mg/dLTBHComment: Performed at: ?? - Labco[address] ??[id number] Manager Professional Development: Chad Mccall PhD, Phone: ??[phone] Specimen (Source)Anatomical Location / LateralityCollection Method / Volume Collection TimeReceived Time07/07/2025 6:40 AM EST07/07/2025 6:42 AM EST Narrative CLINISYNC - 07/08/2025 7:08 AM EST Authorizing ProviderResult TypeResult StatusGeneric External Data Provider CLINISYNCFinal ResultPerforming OrganizationAddressCity/State/ZIP CodePhone Number ÁNGELA [facility] * [facility] ANTIBODY ID (07/07/2025 6:40 AM EST)ComponentValueRef RangeTest Method Analysis TimePerformed AtPathologist SignatureTBH ANTIBODY ID PANELDTBH Comment: LE WARM Auto-Anti-D Auto-Anti-e Nonspecific Reactivity Antibody Identification performed by [facility] Specimen (Source)Anatomical Location / LateralityCollection Method / Volume Collection TimeReceived Time07/07/2025 6:40 AM EST07/07/2025 6:42 AM EST Narrative CLINISYNC - 07/13/2025 2:50 PM EST [facility] , ?? Authorizing ProviderResult TypeResult StatusGeneric External Data Provider CLINISYNCFinal ResultPerforming OrganizationAddressCity/State/ZIP CodePhone Number ÁNGELA EC[facility]RIAH * (ABNORMAL) CCF CMP (CMP) (FOR REMOTE [facility] USE) (07/07/2025 6:40 AM EST) Only the most recent of7 resultswithin the time period is included. ComponentValueRef RangeTest MethodAnalysis TimePerformed AtPathologist Signature MYWFKF886355 - 145 mmol/LTBHPOTASSIUM3.93.5 - 5.1 mmol/CDPUBLXSYNTE13886 - 107 mmol/LTBHCARBON DEEJNPK08.5(H)21.0 - 32.0 mmol/LTBHANION GAP5.9QSTEUQKOVH3540 - 106 mg/dLTBHBLOOD UREA PTOLZYUQ34.07.0 - 18.0 mg/dLTBHCREATININE0.890.70 - 1.30 mg/dLTBHTBH EGFR-AF BERMUDIAN>60>=60 mL/min/1.73m 2TBHTBH EGFR-NON AF BERMUDIAN>60 >=60 mL/min/1.73m 2TBHBUN CREATININE RATIO18.1OXWKRLOOAO2.68.5 - 10.1 mg/dLTBH BILIRUBIN TOTAL1.6(H)0.2 - 1.0 mg/dLTBHASPARTATE AMINO CDEXSUTXQAV7731 - 37 U/L TBHALANINE FRMVGBMBLVSAUZRU3979 - 63 U/LTBHALKALINE NIERNCNNMSK5715 - 116 U/LTBH TOTAL PROTEIN5.9(L)6.4 - 8.2 g/dLTBHALBUMIN LEVEL3.3(L)3.4 - 5.0 g/dLTBHGLOBULIN 2.6g/dLTBHALBUMIN GLOBULIN RATIO1.3TBHSpecimen (Source)Anatomical Location / LateralityCollection Method / VolumeCollection TimeReceived Time07/07/2025 6:40 AM EST07/07/2025 6:42 AM EST Narrative CLINISYNC - 07/07/2025 9:37 AM EST Authorizing ProviderResult TypeResult StatusGeneric External Data Provider CLINISYNCFinal ResultPerforming OrganizationAddressCity/State/ZIP CodePhone Number [facility] * ALL TYPE AND SCREEN (07/07/2025 6:40 AM EST) Only the most recent of2 resultswithin the time period is included. ComponentValueRef RangeTest MethodAnalysis TimePerformed AtPathologist Signature BLOOD TYPEO PositiveTBHANTIBODY SCREENPOSITIVETBHSpecimen (Source)Anatomical Location / LateralityCollection Method / VolumeCollection TimeReceived Time 07/07/2025 6:40 AM EST07/07/2025 6:42 AM EST Narrative CLINISYNC - 07/13/2025 2:50 PM EST [facility] , ?? Authorizing ProviderResult TypeResult StatusGeneric External Data Provider CLINISYNCFinal ResultPerforming OrganizationAddressCity/State/ZIP CodePhone Number [facility] * (ABNORMAL) ALL LDH (07/07/2025 6:40 AM EST) Only the most recent of3 resultswithin the time period is included. ComponentValueRef RangeTest MethodAnalysis TimePerformed AtPathologist Signature LACTATE DIBZVSTSCBDEC925(H)85 - 227 U/LTBHSpecimen (Source)Anatomical Location / LateralityCollection Method / VolumeCollection TimeReceived Time07/07/2025 6:40 AM EST07/07/2025 6:42 AM EST Narrative CLINISYNC - 07/07/2025 9:37 AM EST Authorizing ProviderResult TypeResult StatusGeneric External Data Provider CLINISYNCFinal ResultPerforming OrganizationAddressCity/State/ZIP CodePhone Number [facility] * (ABNORMAL) ALL CBC WITH AUTO DIFF (07/07/2025 6:40 AM EST) Only the most recent of7 resultswithin the time period is included. ComponentValueRef RangeTest MethodAnalysis TimePerformed AtPathologist Signature TBH WBC24.0(H)4.0 - 11.0 10 3/uLTBHTBH RBC3.81(L)4.70 - 6.10 10 6/uLTBHTBH HGB 12.8(L)14.0 - 18.0 g/dLTBHTBH HCT38.4(L)42.0 - 54.0 %TBHTBH INO692.8(H)80.0 - 94.0 fLTBHTBH MCH33.625.9 - 34.0 pgTBHTBH MCHC33.329.9 - 35.2 g/dLTBHTBH RDW13.4 11.0 - 15.0 %TBHTBH AYU332923 - 450 10 3/uLTBHTBH MPV8.7(L)9.5 - 13.5 fLTBH Specimen (Source)Anatomical Location / LateralityCollection Method / Volume Collection TimeReceived Time07/07/2025 6:40 AM EST07/07/2025 6:42 AM EST Narrative CLINISYGA - 07/07/2025 7:40 AM EST Authorizing ProviderResult TypeResult StatusGeneric External Data Provider CLINISYNCFinal ResultPerforming OrganizationAddressCity/State/ZIP CodePhone Number [facility] * (ABNORMAL) MHPT DIFFERENTIAL (06/24/2025 6:40 AM EDT) Only the most recent of6 resultswithin the time period is included. ComponentValueRef RangeTest MethodAnalysis TimePerformed AtPathologist Signature SEGMENTED NEUTROPHILS % RSNCUC06.0(L)43.0 - 75.0TBHLYMPHOCYTES PERCENT MANUAL 67.0(H)20.5 - 60.0 %TBHMONOCYTES PERCENT MANUAL2.01.7 - 12.0 %TBHEOSINOPHILS PERCENT MANUAL1.00.9 - 7.0 %TBHBASOPHILS PERCENT MANUAL0.0(L)0.2 - 2.0 %TBHTBH ATYPICAL LYMPHOCYTES % MANUAL1.0%TBHSEGMENTED NEUT ABSOLUTE MANUAL6.90(H)1.4 - 6.5 10 3/uLTBHLYMPHOCYTES ABSOLUTE WOEAHC69.94(H)1.20 - 3.80 10 3/uLTBHMONOCYTES ABSOLUTE MANUAL0.470.30 - 0.80 10 3/uLTBHEOSINOPHILS ABSOLUTE MANUAL0.230.00 - 0.70 10 3/uLTBHBASOPHILS ABS MANUAL0.000.00 - 0.10 10 3/uLTBHATYPICAL LYMPHOCYTES ABS MAN0.23TBHSMUDGE CELLSSEENTBHSpecimen (Source)Anatomical Location / LateralityCollection Method / VolumeCollection TimeReceived Time 06/24/2025 6:40 AM EDT1 6:43 AM EDT Narrative CLINISYNC - 06/24/2025 7:38 AM EDT Authorizing ProviderResult TypeResult StatusGeneric External Data Provider CLINISYNCFinal ResultPerforming OrganizationAddressCity/State/ZIP CodePhone Number CLINISYNC [facility] * abdomen limited spleen (05/12/2025 1:03 PM EDT)Anatomical RegionLaterality ModalityAbdomen, SpleenUltrasoundSpecimen (Source)Anatomical Location / LateralityCollection Method / VolumeCollection TimeReceived Time05/12/2025 1:03 PM EDT Impressions 05/12/2025 1:10 PM EDT Splenomegaly. ?? Impression dictated by: Joey Curry M.D. ??05/12/2025 1:08 PM ? Dictation Location: RADIO--16 ? Tech: Caterina Aguirre ? Transcribed By: ? PWS ?05/12/25 1308 ? Dictated By: ?Curry,Joey S DO ?05/12/ 1303 ? Signed By: <Electronically signed by Joey S Curry, DO in OV> ? 05/12/25 1308 Narrative 05/12/2025 1:10 PM T [facility] ?[facility] [address] [place] ?[address] ? [place] [address] ? Ultrasound Report ? Signed ? Patient: Rl,Yuri S ?MR#: [id number] ?? 10 ? : 1960 ?Acct:[id number] ? Age/Sex: 64 / M ?ADM Date: [...] ?? Procedure Note Radiology, Radiologist, - 05/12/2025 [facility] [address] Ultrasound Report Signed Patient: Yuri Shine SMR#: [id number] 10 : 1960Acct:[id number] Age/Sex: 64 / MADM Date: 05/12/25 Loc: XT [facility] Dr: Christian Carlos II, [...] Curry M.D. 05/12/2025 1:08 PM Dictation Location: [place] [address] Tech: Caterina Aguirre Transcribed By: [facility] 05/12/25 1308 Dictated By: Joey Curry DO 05/12/25 1303 Signed By: <Electronically signed by Joey Curry DO in OV> 05/12/25 1308 Authorizing ProviderResult TypeResult StatusTimmoise Carlos [facility] US PROCEDURESFinal Result * (ABNORMAL) SCAN AND CBC (05/12/2025 9:36 AM EDT)ComponentValueRef RangeTest MethodAnalysis TimePerformed AtPathologist LrkfvvnuuZHV67.7(H)4.1 - 10.5 [CFU]/mL05/12/2025 10:33 AM [facility] CtrUNCORRECTED WHITE BLOOD COUNT24.7(H)4.1 - 10.5 10*3/uL05/12/2025 10:33 AM [facility] CtrRBC2.39(L)3.90 - 5.60 10*6/uL05/12/2025 10:33 AM [facility] CtrHEMOGLOBIN8.9(L)13.0 - 17.0 g/dL05/12/2025 10:33 AM [facility] QjvCLQEDPKWBD19.6(L)38.8 - 50.0 %05/12/2025 10:33 AM [facility] CvfRBN199.3(H)83.5 - 101 fL05/12/2025 10:33 AM [facility] SqsNAN25.3(H)27.5 - 35.2 pg05/12/2025 10:33 AM [facility] XysAKHN23.532.5 - 35.6 g/dL05/12/2025 10:33 AM [facility] CtrRED CELL DISTRIBUTION WIDTH, RDW16.6(H) 12.0 - 14.8 %05/12/2025 10:33 AM [facility] CtrPLATELET SCCOP412279 - 450 10*3/uL05/12/2025 10:33 AM [facility] Ctr MEAN PLATELET VOLUME, MPV7.06.6 - 10.1 fL05/12/2025 10:33 AM [facility] CtrNEUTROPHILS, %22.4. %05/12/2025 11:09 AM [facility] CtrLYMPHOCYTES, %74.6. %05/12/2025 11:09 AM [facility] CtrMONOCYTE/MACROPHAGE, %2.6. %05/12/2025 11:09 AM [facility] CtrEOSINOPHILS, %0.1. %05/12/2025 11:09 AM [facility] CtrBASOPHILS, %0.3. %05/12/2025 11:09 AM [facility] CtrNRBC0.10 - 0.5 /100{WBC}05/12/2025 11:09 AM [facility] CtrNEUTROPHILS5.51.8 - 7.7 10*3/uL05/12/2025 11:09 AM [facility] CigWIPTRHATOIN74.5(H)1.00 - 4.8 10*3/uL 05/12/2025 11:09 AM [facility] CtrMONOCYTES0.60.0 - 0.8 10*3/uL05/12/2025 11:09 AM [facility] CtrEOSINOPHILS0.00.0 - 0.45 10*3/uL05/12/2025 11:09 AM [facility] CtrBASOPHILS 0.10.0 - 0.2 10*3/uL05/12/2025 11:09 AM [facility] Ctr TITLULHWCMSSQXujvqiis21/18/2025 11:09 AM [facility]tr BZPKZLMGRCPAMEojniu59/18/2025 11:09 AM [facility] Ctr JRRIZPQKKLHDZlyehl04/18/2025 11:09 AM [facility] Ctr CUURITFGGCSWAhkfpy89/18/2025 11:09 AM [facility] CtrTEAR DROP EYIOGOucrvb13/18/2025 11:09 AM [facility] CtrPLATELET YUCNZEPQSwldwlTazcit77/18/2025 11:09 AM [facility] Ctr PLATELET JWOMDHTFPRTuonsbCecopi95/18/2025 11:09 AM [facility] CtrSpecimen (Source)Anatomical Location / LateralityCollection Method / VolumeCollection TimeReceived TimeBlood (Blood)05/12/2025 9:36 AM EDT 05/12/2025 9:36 AM EDT Narrative Authorizing ProviderResult TypeResult StatusChristian Carlos DOLAB BLOOD ORDERABLESFinal ResultPerforming OrganizationAddressCity/State/ZIP CodePhone Number [facility] [address] [place] [address], [facility] [address] [place] [address] * VIT. B12/FOLATE PROFILE (05/12/2025 9:36 AM EDT)ComponentValueRef RangeTest MethodAnalysis TimePerformed AtPathologist SignatureVITAMIN [id number] - 914 pg/mL05/12/2025 11:18 AM [facility] WgsVMVXAM90.3>5.9 ng/mL 05/12/2025 11:17 AM [facility] CtrComment: Folate reference range: >5.9 ng/ml The WHO technical consultation on folate and vitamin b12 deficiencies has determined that folate concentrations less than 4 ng/ml are considered deficient. Specimen (Source)Anatomical Location / LateralityCollection Method / Volume Collection TimeReceived TimeOtherTopography unknown / Agfmrro3405/12/2025 9:36 AM EDT05/12/2025 9:36 AM EDT Narrative Authorizing ProviderResult TypeResult StatusChristian Guillermo Carlos [facility] BLOOD ORDERABLESFinal ResultPerforming OrganizationAddressCity/State/ZIP CodePhone Number [facility] [address] [place] [address], [facility] [address] [place] [address] * Iron and TIBC (05/12/2025 9:36 AM EDT)ComponentValueRef RangeTest Method Analysis TimePerformed AtPathologist HrapbocwdMKCF63787 - 212 ug/dL05/12/2025 10:52 AM [facility] CtrTOTAL IRON BINDING CZSEPKNE432952 - 450 ug/dL05/12/2025 10:52 AM [facility] Ctr% IRON KKGXCVRSBO63.220 - 50 %05/12/2025 10:52 AM [facility]tr [id number] - 362 mg/dL05/12/2025 10:52 AM [facility] CtrSpecimen (Source)Anatomical Location / LateralityCollection Method / VolumeCollection TimeReceived TimeOtherTopography unknown / Pziorpv6305/12/2025 9:36 AM EDT05/12/2025 9:36 AM EDT Narrative Authorizing ProviderResult TypeResult StatusChristian Lowanjum [facility] BLOOD ORDERABLESFinal ResultPerforming OrganizationAddressCity/State/ZIP CodePhone Number [facility] [address] [place] [address], [facility] [address] [place] [address] * Sedimentation rate, automated (05/12/2025 9:36 AM EDT)ComponentValueRef Range Test MethodAnalysis TimePerformed AtPathologist SignatureERYTHROCYTE SEDIMENTATION RATE<10 - 19005/12/2025 11:18 AM [facility] CtrSpecimen (Source)Anatomical Location / LateralityCollection Method / Volume Collection TimeReceived TimeBlood (Blood)05/12/2025 9:36 AM EDT05/12/2025 9:36 AM EDT Narrative Authorizing ProviderResult TypeResult StatusTimmoise Carlos CRITICAL ACCESS HOSPITAL BLOOD ORDERABLESFinal ResultPerforming OrganizationAddressCity/State/ZIP CodePhone Number [address] [address], [facility] [address] [place] [address] * (ABNORMAL) Haptoglobin (05/12/2025 9:36 AM EDT)ComponentValueRef RangeTest MethodAnalysis TimePerformed AtPathologist SignatureHAPTOGLOBIN<30(L)44 - 215 mg/dL05/12/2025 11:59 AM [facility] CtrSpecimen (Source) Anatomical Location / LateralityCollection Method / VolumeCollection Time Received TimeOtherTopography unknown / Uyzmvpo9105/12/2025 9:36 AM EDT05/12/2025 9:36 AM EDT Narrative Authorizing ProviderResult TypeResult StatusTimmoise Carlos [facility]ESS [facility] BLOOD ORDERABLESFinal ResultPerforming OrganizationAddressCity/State/ZIP CodePhone Number [address] [address], [facility] [address] [place] [address] * Ferritin (05/12/2025 9:36 AM EDT)ComponentValueRef RangeTest MethodAnalysis TimePerformed AtPathologist PvdrqrxunRPUGHBCA444.123.9 - 336.2 ng/mL05/12/2025 11:14 AM [facility] CtrSpecimen (Source)Anatomical Location / LateralityCollection Method / VolumeCollection TimeReceived Time OtherTopography unknown / Pmecdzn2705/12/2025 9:36 AM EDT05/12/2025 9:36 AM EDT Narrative Authorizing ProviderResult TypeResult StatusTimmoise Lowanjum [facility] BLOOD ORDERABLESFinal ResultPerforming OrganizationAddressty/State/ZIP CodePhone Number [facility] [address] [place] [address], [facility] [address] [place] [address] * (ABNORMAL) Comprehensive metabolic panel (05/12/2025 9:36 AM EDT)Component ValueRef RangeTest MethodAnalysis TimePerformed AtPathologist SignatureGlucose 8870 - 100 mg/dL05/12/2025 10:52 AM [facility] CtrComment: Random Glucose Reference Range is dependent on time and content of last meal. Glucose of more than 200 mg/dL in a nonstressed, ambulatory subject supports the diagnosis of Diabetes Mellitus. ADA recommended reference range CLK798 - 25 mg/dL05/12/2025 10:52 AM [facility] CtrCREATININE 0.920.70 - 1.30 mg/dL05/12/2025 10:52 AM [facility] ESTIMATED GFR>60. 10:52 AM [facility] JljYepifb615 136 - 145 mmol/L05/12/2025 10:52 AM [facility] CtrPotassium, Bld3.63.5 - 5.1 mmol/L05/12/2025 10:52 AM [facility] Zvacovpp74168 - 107 mmol/L05/12/2025 10:52 AM [facility] Ctr Carbon Wyewkuv90.3(H)21.0 - 31.0 mmol/L05/12/2025 10:52 AM [facility] CtrAnion Gap7.36.0 - 15. 10:52 AM [facility] CtrCalcium8.78.6 - 10.3 mg/dL05/12/2025 10:52 AM [facility] CtrTOTAL PROTEIN5.8(L)6.4 - 8.9 g/dL05/12/2025 10:52 AM [facility] CtrALBUMIN LEVEL4.23.5 - 5.7 g/dL05/12/2025 10:52 AM [facility] CtrGLOBULIN1.6g/dL05/12/2025 10:52 AM [facility] CtrALBUMIN/GLOBULIN RATIO2.609 10:52 AM [facility] CtrBILIRUBIN,TOTAL3.4(H)0.3 - 1.0 mg/dL05/12/2025 10:52 AM [facility] CtrComment: Samples from patients who have taken Naproxen have shown spurious elevation in Total Bilirubin levels. ??A metabolite of Naproxen, O-desmethylnaproxen, has been shown to interfere with the Jendrassik-Grof method for measuring Total Bilirubin. ASPARTATE AMINO NQSINDEHUCE1585 - 39 U/L05/12/2025 10:52 AM [facility] CtrALANINE FNMQJJNIYYIBBVDR145 - 52 U/L05/12/2025 10:52 AM EDT [facility] CtrALKALINE MXUPVSPNLJL4543 - 104 U/L05/12/2025 10:52 AM [facility] CtrCREATININE CLR CALC JSMHXOEW59.8605/12/2025 10:52 AM [facility] CtrSpecimen (Source)Anatomical Location / LateralityCollection Method / VolumeCollection TimeReceived TimeOther Topography unknown / Bzafhwk8305/12/2025 9:36 AM EDT05/12/2025 9:36 AM EDT Narrative Authorizing ProviderResult TypeResult StatusChristian Carlos DOL BLOOD ORDERABLESFinal ResultPerforming OrganizationAddressCity/State/ZIP CodePhone Number [facility] [address] [place] [address], [facility] [address] [place] [address] * [employer] (05/09/2025 9:02 AM EDT)ComponentValueRef RangeTest Method Analysis TimePerformed AtPathologist SignatureTBH CQVQ387.065.0 - 175.0 ug/dL TBHTBH TOTAL IRON BINDING DOMWYIXM863.0250.0 - 450.0 ug/dLTBHTBH PERCENT IRON KYTDWZUNEV38.5%TBHSpecimen (Source)Anatomical Location / LateralityCollection Method / VolumeCollection TimeReceived Time05/09/2025 9:02 AM EDT05/09/2025 9:34 AM EDT Narrative [facility] - 05/09/2025 10:36 AM EDT Authorizing ProviderResult TypeResult StatusGeneric External Data Provider CLINISYNCFinal ResultPerforming OrganizationAddressCity/State/ZIP CodePhone Number [facility] * [facility] FERRITIN (05/09/2025 9:02 AM EDT)ComponentValueRef RangeTest Method Analysis TimePerformed AtPathologist BcagiusdxPJLUTHJN781.026.0 - 388.0 ng/mL TBHSpecimen (Source)Anatomical Location / LateralityCollection Method / Volume Collection TimeReceived Time05/09/2025 9:02 AM EDT05/09/2025 9:34 AM EDT Narrative [facility] - 05/09/2025 10:27 AM EDT Authorizing ProviderResult TypeResult StatusGeneric External Data Provider CLINISYNCFinal ResultPerforming OrganizationAddressCity/State/ZIP CodePhone Number [facility] * ALL SED RATE (05/09/2025 9:02 AM EDT)ComponentValueRef RangeTest Method Analysis TimePerformed AtPathologist SignatureTBH SED RATE<1<=20 mm/hrTBH Specimen (Source)Anatomical Location / LateralityCollection Method / Volume Collection TimeReceived Time05/09/2025 9:02 AM EDT05/09/2025 9:34 AM EDT Narrative [facility] - 05/09/2025 9:56 AM EDT Authorizing ProviderResult TypeResult StatusGeneric External Data Provider CLINISYNCFinal ResultPerforming OrganizationAddressCity/State/ZIP CodePhone Number [facility] * ALL MISCELLANEOUS TEST (05/09/2025 9:02 AM EDT)ComponentValueRef RangeTest MethodAnalysis TimePerformed AtPathologist SignatureMISCELLANEOUS TESTCOMMENT. TBHComment: Test Ordered: [id number] Antibody Identification Antibody Id. #1 ?Comment ? [...] POSITIVE (3+) WITH ANTI-IgG Kane Titer #1 ?[employer] ?NOLAB ?? Reference Range: . Antibody Id. #2 ?[employer] ?NOLAB ?? Reference Range: . Kane Titer #2 ?SUPER[employer] ?NOLAB ?? Reference Range: . Performed at: ??[facility] - [facility] [address] ??[id number] Manager Professional Development: Chad Mccall PhD, Phone: ??[phone] Specimen (Source)Anatomical Location / LateralityCollection Method / Volume Collection TimeReceived Time05/09/2025 9:02 AM EDT05/09/2025 10:49 AM EDT Narrative [facility] - 05/10/2025 2:08 PM EDT [id number] Antibody Identification Authorizing ProviderResult TypeResult StatusGeneric External Data Provider CLINISYNCFinal ResultPerforming OrganizationAddressCity/State/ZIP CodePhone Number [facility] * COLONOSCOPY DIAGNOSTIC (10/02/2018 2:27 PM EST)Anatomical RegionLaterality ModalityRadiographic Imaging Narrative Authorizing ProviderResult TypeResult StatusUnknown Practice AIMG XR PROCEDURES Final Result from Last 3 Months or Most Recently Relevant to Health Maintenance Insurance Care Teams Team MemberRelationshipSpecialtyStart DateEnd Date Linda Jansen PA [address] [address] PCP - Generalmi Furpxcyg12/13/23
--- OUTSIDE RECORDS SUMMARY | 2025-07-22 06:18 | XMS_ITS | CCD ---
Author Organization [facility] Care Team Providers Care Assembling Fabricator Name Role Phone Sedrick Ye Unavailable Unavailable Unavailable Unavailable Primary Care Provider Ita Sandra MD Unavailable [phone] Ita Tuttle MD Unavailable Ita Tuttle MD Unavailable [phone] ITA TUTTLE Referring Unavailable YE ., [...] DO Christian Carlos II Attending Provider Hemmer, SEATING AND MOBILITY TECHNOLOGIST-C Linda Referring Provider [phone] MD Sedrick Ye Primary Care Provider Breanna IIDO Christian Attending Provider Hemmer, SEATING AND MOBILITY TECHNOLOGIST-C Linda Referring Provider Hemmer Linda PIEDRA Primary Care Provider [phone] Hemmer Linda PIEDRA Unavailable Sedrick Ye MD Primary Care Provider Christian Carlos DO Attending Provider [phone] Hemmer SEATING AND MOBILITY TECHNOLOGIST-C, Linda Referring Provider NON STAFF Primary Care Provider UnavailLino Seo [facility] Russell CAMACHO Attending Provider Christian Carlos DO Attending Provider Hemmer SEATING AND MOBILITY TECHNOLOGIST-C, Linda Primary Care Provider Hannah Queen APRN Attending Provider Sedrick Ye MD Primary Care Provider Hemmer SEATING AND MOBILITY TECHNOLOGIST-CLinda Referring Provider [phone] LINDA JANSEN Attending Unavailable BROWN, EULALIO A [...] Unavailable BROWN, EULALIO A Referring Unavailable Hemmer SEATING AND MOBILITY TECHNOLOGIST-C, Linda Primary Care Provider [phone] Christian Carlos DO Attending Provider [phone] Killian LYON-Gracie Long Attending Provider Inderjit SEATING AND MOBILITY TECHNOLOGIST-C, Linda Referring Provider [phone] Hemjhonatan SEATING AND MOBILITY TECHNOLOGIST-C, Linda Primary Care Provider Inderjit SEATING AND MOBILITY TECHNOLOGIST-C, Linda Referring Provider [phone] Linda Jansen Primary Care Unavailable Christian Carlos II Admitting Unavaila ble Adamowicz II, Christian Li Attending Unavaila ble NON STAFF Primary Care Unavailable Hannah Queen Admitting Unavailable Hannah Queen Attending Unavailable Linda Jansen Primary Care Unavailable Linda Jansen Referring Unavailable Breanna IIChristian Admitting Unavaila ble Devanteicz II, Christian Li Attending Unavaila ble NON STAFF Primary Care [facility]available [facility] Attending Unavailable ITA TUTTLE Referring Unavailable TONY ARMSTRONG Attending Unavaila ble ITA TUTTLE Attending Unavailable ITA TUTTLE Referring Unavailable Hemmer Linda PIEDRA Unavailable Medications Current Medications MedicationDrug Class(es)DatesSig (Normalized)Sig (Original)amoxicillin 875 mg / clavulanate 125 mg oral tablet (2 sources)Penicillin-class AntibacterialStart: 09-15-2024 End: 31-47-7629fqid 1 tablet by mouth in the morningamoxicillin-clavulanate [...] oral capsule (2 sources)Non-narcotic AntitussiveStart: 09-29-2024 End: 99-95-8452iupn 1 capsule by mouth three times daily as needed for cough benzonatate (Tessalon) 200 MG capsule Indications: Acute cough Take 1 capsule (200 mg) by mouth 3 (three) times a day as needed for cough for up to 7 days Do not crush or chew. 21 capsule 09/29/2024 10/06/2024 Activecelecoxib 200 mg oral capsule (10 sources)Nonsteroidal Anti-inflammatory DrugStart: 10-28-2024 End: 78-35-3135giyd 1 capsule by mouth once dailycelecoxib (CeleBREX) 200 MG capsule Indications: S/P right knee arthroscopy Take 1 capsule (200 mg)by mouth Daily 30 capsule 1 10/28/2024 12/27/2024 ActiveStart: 08-13-2024 End: 99-57-1329frxh 1 capsule by mouth in the morning [...] oral tablet (20 sources)alpha-Adrenergic BlockerStart: 05-25-2023 End: 78-91-5020azdi 1 tablet by mouth at bedtimedoxazosin (Cardura) 4 MG tablet Take 1 tablet by mouth at bedtime 05/25/2023 ActiveStart: 01-17-2023 End: 65-03-0571avll 1.5 tablets by mouth once daily at bedtimedoxazosin (CARDURA) 2 mg tablet Take 1.5 tablets by mouth daily at bedtime. 135 tablet 1 2/02/2023 DiscontinuedStart: 24-57-1763onxa 1 tablet by mouth once daily at bedtimedoxazosin (CARDURA) 2 mg tablet Take 1 tablet by mouth daily at bedtime. 90 tablet 1 12/25/2022 ActiveStart: 09-13-2022 End: 91-92-8550rtnv 1 tablet by mouth once daily at bedtimedoxazosin (CARDURA) 1 mg tablet TAKE 1 TABLET BY MOUTH EVERYDAY AT BEDTIME 90 tablet 3 10/08/2022 DiscontinuedComment on above:Take 1 tablet by mouth daily at bedtime. TAKE 1 TABLET BY MOUTH EVERYDAY AT BEDTIMETake 1.5 tablets by mouth daily at bedtime.doxepin hydrochloride 10 mg oral capsule (5 sources)Tricyclic Antidepressant End: 47-41-1375gsclpyu (SINEquan) 10 MG capsule Take 10 mg by mouth as needed at bedtime for sleep 05/21/2024 Discontinuedfolic acid 1 mg oral tablet (2 sources)Start: 97-44-2151mzre 1 tablet by mouth once dailyhydroCHLOROthiazide 25 mg / valsartan 320 mg oral tablet (20 sources)Thiazide Diuretic, Angiotensin 2 Receptor BlockerStart: 05-13-2025 take 1 tablet by mouth once dailyStart: 05-04-2020 End: 67-10-2062hxjv 1 tablet by mouth once daily in [...] mg oral tablet (20 sources)Start: 09-12-2023 End: 79-13-4101fchs 1 tablet by mouth once dailyComment on above:Take 1 tablet by mouth once daily.24 hr NIFEdipine 30 mg extended release oral tablet (20 sources)Dihydropyridine Calcium Channel BlockerStart: 20-11-2370raek 1 tablet by mouth once dailyNIFEdipine XL (ADALAT CC) 30 mg 24 hr tablet Indications: Hypertension, unspecified type Take 1 tablet by mouth once daily. 90 tablet 3 01/03/2025 ActiveStart: 12-20-2021 End: 57-86-5081iwfo 1 tablet by mouth once dailyNIFEdipine XL (ADALAT CC) 30 mg 24 hr tablet Indications: Hypertension, unspecified type take one tablet by mouth daily 90 tablet 3 01/05/2024 01/01/2025 DiscontinuedStart: 60-86-0658zygl 1 tablet by mouth once dailyStart: 19-53-1496ijba 1 tablet by mouth twice daily Nifedipine [...] mL injection (DEFINITY) (20 sources)Start: 01-17-2023 End: 92-30-5932gvlqhbrpft lipid microspheres 1.3 mL in NaCl (PF) 0.9% 10 mL injection (DEFINITY)Start: 12-12-2021 End: 38-89-3163rujazqpsjk lipid microspheres 1.3 mL in NaCl (PF) 0.9% 10 mL injection (DEFINITY)predniSONE 20 mg oral tablet (17 sources)Start: 05-06-2025 End: 76-53-7274lanj 4 tablets by mouth once dailyStart: 09-91-1576cgrdxcMPGL (Deltasone) 10 MG tablet Indications: Right knee pain, unspecified chronicity As directed orally - Take 6 tabs day 1 and 2, 5 tabs day 3 and 4, 4 tabs day 5 and 6, 3 tabs day 7 and 8, 2 tabs day 9 and 10, and 1 tab day 11 and 12. 42 tablet 09/30/2024 ActiveStart: 06-10-2024 End: 04-74-8777otsrpfECEV (Deltasone) 20 MG tablet Indications: Strain of thoracic back region 3 tabs x 2 days, 2 tabs x 2 days, 1 1/2 tab x 2 days, 1 tab x 2 days, 1/2 tab x 2 days, then stop 16 tablet 06/10/2024 07/27/2024 Discontinued (Therapy completed)125 ml sodium chloride 9 mg/ml prefilled syringe (20 sources)Start: 12-12-2021 End: 60-81-6647cdhoaz chloride 0.9 % (flush) 10 mL (BD POSIFLUSH)valsartan 320 mg oral tablet (15 sources)Angiotensin 2 Receptor BlockerStart: 03-01-2025 End: 60-51-3056isph 1 tablet by mouth once dailyvalsartan (Diovan) 320 MG tablet Indications: Primary hypertension TAKE 1 TABLET BY MOUTH EVERY DAY90 tablet 1 03/23/2025 Active Completed/Discontinued Medications MedicationDrug Class(es)DatesSig (Normalized)Sig (Original)acetaminophen 325 mg / HYDROcodone bitartrate 5 mg oral tablet (8 sources)Opioid AgonistStart: 07-14-2020 End: 68-13-2865swdl 1 tablet by mouth every four to six hours as needed for pain Hydrocodone-Acetaminophen ([place]) 5-325 mg tablet Discontinued 1 - 2 TAB PO EVERY 4-6 HOURS as needed for Pain 22 12July 14, 2020 August 28, 2021 3:10pmapixaban 5 mg oral tablet (20 sources)Factor Xa InhibitorStart: 05-04-2020 End: 71-47-0435crve 1 tablet by mouth twice dailyApixaban (Eliquis) 5 mg Tablet Discontinued 5 MG PO Twice daily May 04, 2020 12:00am January 23, 2024 2:05pmComment on above:Take by mouth twice daily.Take 1 tablet by mouth twice daily.aspirin 81 mg delayed release oral tablet (20 sources)Platelet Aggregation Inhibitor, Nonsteroidal Anti-inflammatory Drug Start: 07-30-2013 End: 41-72-0892bdyp 1 tablet by mouth once dailyAspirin 81 mg Tablet,Delayed Release (Dr/Ec) Discontinued 81 MG PO Daily October 02, 2018 1:00am May 04, 2020 8:52amComment on above:Take 81 mg by mouth.betamethasone 3 mg/ml / betamethasone acetate 3 mg/ml injectable suspension (4 sources)CorticosteroidStart: 09-30-2024 End: 98-74-4204pgollgnykaqpk acetate-betamethasone sodium phosphate ([place]el[place]) injection 1.5 mgStart: 09-30-2024 End: .5 mg, Intra-articular, Once PRN Procedure, Starting on Pascale 09/30/24 at 1629, For 1 dosedoxycycline hyclate 100 mg oral tablet (8 sources)Tetracycline-class DrugStart: 07-14-2020 End: 06-44-2900sjmb 1 tablet by mouth twice dailyDoxycycline Hyclate 100 mg tablet Discontinued 100 MG PO Twice daily 10 July 14, 2020 1:00am August 28, 2021 3:10pmfurosemide 40 mg oral tablet (20 sources)Loop DiureticStart: 07-06-2020 End: 77-16-9103yibe 1 tablet by mouth once daily in the morningFurosemide 40 mg tablet Discontinued 40 MG PO Every morning July 06, 2020 1:00am January 23, 2024 2:06pmStart: 05-04-2020 End: 52-16-9098rdjd 1 tablet by mouth twice dailyFurosemide 20 [...] oral capsule (5 sources)Anti-epileptic AgentStart: 09-30-2024 End: 72-36-2333yctn 1 capsule by mouth at bedtimegabapentin (Neurontin) 300 MG capsule Indications: S/P right knee arthroscopy Take 1 capsule (300 mg) by mouth at bedtime 30 capsule 09/30/2024 12/09/2024 Discontinued (Therapy completed) hydroCHLOROthiazide 25 mg / losartan potassium 100 mg oral tablet (8 sources)Thiazide Diuretic, Angiotensin 2 Receptor BlockerStart: 10-02-2018 End: 66-96-7481bgwh 1 tablet by mouth once dailyLosartan-Hydrochlorothiazide 100-25 mg tablet Discontinued 1 TAB PO Daily October 02, 2018 1:00amSept2019 8:43amiv contrast (will be provided with radiology test) (20 sources)Start: 12-12-2021 End: 75-74-1477lonawc 1 dose intravenously onceiv contrast (will be [...] 12/12/2021 03/22/2022 Discontinued (Course of therapy completed)Start: 36-99-4469crwykl 1 dose intravenously onceiv contrast (will be [...] tablet (16 sources)Nonsteroidal Anti-inflammatory DrugStart: 01-08-2024 End: 18-61-1446lkpb 1 tablet by mouth once dailyMeloxicam 15 mg tablet Discontinued 15 MG PO Daily January 23, 2024 12:00am April 23, 2024 2:59pm metoprolol tartrate 50 mg oral tablet (8 sources)beta-Adrenergic BlockerStart: 10-02-2018 End: 13-66-2633furb 1 tablet by mouth twice dailyMetoprolol Tartrate 50 mg Tablet Discontinued 50 MG PO Twice daily October 02, 2018 1:00am May 06, 2020 1:58pmpantoprazole 40 mg delayed release oral tablet (20 sources)Proton Pump InhibitorStart: 12-04-2021 End: 88-43-1591rfzy 1 tablet by mouth once dailypantoprazole DR (PROTONIX) 40 mg tablet Take 1 tablet by mouth once daily. 30 tablet 0 12/04/2021 03/22/2022 Discontinued (Course of therapy completed)Comment on above:Take 1 tablet by mouth once daily.microencapsulated potassium chloride 10 meq extended release oral tablet (20 sources)Start: 12-20-2021 End: 86-54-1889hief 1 tablet by mouth once dailypotassium chloride ER (K-DUR, KLOR-CON) 10 mEq tablet Take 1 tablet by mouth once daily. 90 tablet 3 01/10/2022 05/10/2022 Discontinued (Clinical Decision)Start: 80-74-7091qjyc 1 tablet by mouth once dailyKLOR-CON M20 20 mEq tablet TAKE 1 TABLET BY MOUTH EVERY DAY 90 tablet 3 10/26/2021 ActiveStart: 10-02-2018 End: 33-33-4246xgnv 1 tablet by mouth once daily in the morningPotassium Chloride 20 mEq Tablet Extended Release Discontinued 20 MEQ PO Every morning October 02, 2018 1:00am April 23, 2024 2:59pmComment on above:TAKE 1 TABLET BY MOUTH EVERY DAYTake 1 tablet by mouth once daily.sildenafil 100 mg oral tablet (20 sources)Phosphodiesterase 5 InhibitorStart: 08-29-2021 End: 64-68-5497Tsyfwrspea (Viagra) 100 mg Tablet Discontinued 50 MG [...] mg oral tablet (20 sources)AntiarrhythmicStart: 12-20-2021 End: 89-23-7356jujy 1 tablet by mouth twice dailysotalol (BETAPACE) 80 mg tablet Indications: Atrial fibrillation, persistent (HCC) Take 1 tablet bymouth twice daily. 180 tablet 3 01/10/2022 05/10/2022 Discontinued (Discontinued by another Health Care Provider)Start: 05-05-2020 End: 52-82-2617sbfj 1 tablet by mouth every twelve hoursSotalol 80 mg Tablet Discontinued 80 MG PO Q12H 60 30 May 05, 2020 12:00am January 23, 2024 2: 06pmComment on above:Take 80 mg by mouth twice daily.Take 1 tablet by mouth twice daily.spironolactone 25 mg oral tablet (1 source)Aldosterone AntagonistStart: 92-64-7866okbc 1 tablet by mouth once dailySpironolactone 25 MG Oral Tablet TAKE 1 TABLET DAILY. Quantity: 90 Refills: 3 Ordered: 29-Oct-2021 Tera Davison MD Start : 29-Oct-2021 Active new start tiZANidine 4 mg oral tablet (12 sources)Central alpha-2 Adrenergic AgonistStart: 06-10-2024 End: 17-38-7529ogho 1 tablet by mouth every eight hours [...] sources)Contact dermatitis; Translations: [Unspecified contact dermatitis, unspecified cause]67-58-1488IrnnryafBerawl; peripheral; and visceral artery aneurysms (20 sources)Ascending aorta dilatation; Translations: [Thoracic aortic ectasia] Onset: 01-31-1248SbjfijlZuayonh dysrhythmias (11 sources)Palpitations; Translations: [Palpitations]EpisodicCoagulation and hemorrhagic disorders (20 sources)Thrombophilia; Translations: [Other thrombophilia]Onset: 02-09-2024 54-16-1809VjumszhVmrztmrv atherosclerosis and other heart disease (1 source)Calcification of coronary artery; Translations: [Atherosclerotic heart disease of [place] coronary artery without angina pectoris]85-90-3890Abljocf Crushing injury or internal injury (4 sources)Crushing injury of right foot, initial encounter; Translations: [CRUSHING INJURY RIGHT FOOT INITIAL]Onset: 93-31-4113ThxtsyibUezlrdhtmk and other anemia (2 sources)Autoimmune hemolytic anemia; 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]62-83-4964GqoseitPvjddads mellitus without complication (2 sources)Impaired fasting glycemia; Translations: [Impaired fasting glucose] 80-92-8080HdfvlvgyPdohfzhh of white blood cells (20 sources)Lymphocytosis; Translations: [Lymphocytosis (symptomatic)]Onset: 095182-16-6683GwapvdbK Codes: Struck by; against (1 source)Other cause of strike by thrown, projected or falling object, initial encounter; Translations: [OTHCAUSE STRIK THRWN/FALL OBJ INIT]Onset: 11-14-2022 EpisodicEssential hypertension (20 sources)Essential hypertension; Translations: [Unspecified essential hypertension]Onset: 454784-98-9258NvrltogZtozeax on above:Problem List clean-up per request of Phys. EHR CmteFracture of upper limb (6 sources)Closed fracture of phalanx of finger; Translations: [Fracture of unspecified phalanx of unspecifiedfinger, initial encounter for closed fracture] 67-12-5676ImxbyguaIupfj disorders and dislocations; trauma-related (2 sources)Tear of medial meniscus of knee; Translations: [Other tear of medial meniscus, current injury, right knee, subsequent encounter]38-58-8754Lpwrgjqe Leukemias (3 sources)Chronic lymphoid leukemia, disease; Translations: [Chronic lymphocytic leukemia of B-cell type not having achieved remission]Onset: 177585-68-4182XscgtstZnkfhuxtayj chest pain (8 sources)Chest pain; Translations: [Chest pain, unspecified]Episodic Osteoarthritis (13 sources)Degenerative joint disease of ankle AND/OR foot; Translations: [Primary osteoarthritis, unspecifiedankle and foot]Onset: 457299-59-6291 ChronicOther connective tissue disease (1 source)Synovitis and tenosynovitis, unspecified; Translations: [SYNOVITIS AND TENOSYNOVITIS UNS]Onset: 76-55-4750NiywnwbdXlkmk connective tissue disease (4 sources)Spasm; Translations: [Other muscle spasm]35-35-5702DhykmzzzLxkby connective tissue disease (2 sources)Pain of left hand; Translations: [Pain in left hand]09-30-2024 EpisodicOther connective tissue disease (6 sources)Pain in finger; Translations: [Pain in unspecified finger(s)] 90-57-6789MtmlnipgKcnjz connective tissue disease (2 sources)Cramp; Translations: [Cramp and spasm]53-56-3808CwiuhukdImrfq injuries and conditions due to external causes (3 sources)Unspecified injury of right ankle, initial encounter; Translations: [UNSPECIFIED INJURY RT ANKLE INITIAL]Onset: 49-88-0372AjkcmizwEmfha male genital disorders (20 sources)Male erectile dysfunction, unspecified; Translations: [Impotence of organic origin]Onset: 707654-97-7381ZlyeumiCdvkt non-traumatic joint disorders (2 sources)Pain in right knee; Translations: [Pain in joint, lower leg] 81-55-6755AkmxftwtUacwi nutritional; endocrine; and metabolic disorders (8 sources)Overweight in adulthood with body mass index of 25 or more but less than 30; Translations: [Overweight]EpisodicOther upper respiratory infections (2 sources)Acute maxillary sinusitis; Translations: [Acute maxillary sinusitis, unspecified]16-61-8533PysqzpqgCssheryktx and visceral atherosclerosis (20 sources)Arteriosclerotic vascular disease; Translations: [Unspecified atherosclerosis]Onset: 50-32-3428KcujsicDdaljtyx codes; unclassified (20 sources)Sleep apnea; Translations: [Unspecified sleep apnea]Onset: 640905-57-4528TglaewjJbuktjyw codes; unclassified (20 sources)Obstructive sleep apnea syndrome; Translations: [Obstructive sleep apnea (adult) (pediatric)]Onset: 126768-95-4902TsbqypwZozfvctk codes; unclassified (5 sources)Non-smoker; Translations: [Other specified conditions influencing health status]EpisodicResidual codes; unclassified (1 source)H/O: atrial fibrillation; Translations: [Other specified postprocedural states]EpisodicResidual codes; unclassified (6 sources)History of arthroscopy of knee joint; Translations: [Other specified postprocedural states]93-37-2381TmzlukgcOkcyzjl and strains (4 sources)Strain of thoracic region; Translations: [Strain of muscle and tendon of back wall of thorax, initial encounter]64-67-8312RwyocdtgBvikfuoiqey injury; contusion (5 sources)Contusion of right ankle, initial encounter; Translations: [CONTUSION RIGHT ANKLE INITIAL ENC]Onset: 93-01-2157EcvecyhqCmhwrcbitnin (2 sources)Right knee pain, unspecified igsrpngidl82-78-9617 Past or Other Problems Problem ClassificationProblemDateDocumented DateEpisodic/ChronicCalculus of urinary tract (20 sources)History of calculus of kidney; Translations: [Personal history of urinary calculi]Onset: 04-14-2023 Resolved: 937887-46-3793LaysouniErhbxuf dysrhythmias (20 sources)Paroxysmal atrial fibrillation; Translations: [Atrial fibrillation] Onset: 09-27-2021 Resolved: 668325-90-4535GlqhgioIaehswg on above:Problem List clean-up per request of Phys. EHR CmteComplications of surgical procedures or medical care (20 sources)Drug therapy finding; Translations: [Unspecified adverse effect of drug or medicament, initial encounter]Onset: 02-09-2024 Resolved: 523945-10-8018HmmrwmniInvxajj on above:Problem List clean-up per request of Phys. EHR CmteDisorders of lipid metabolism (20 sources)Hyperlipidemia; Translations: [Other and unspecified hyperlipidemia] Onset: 08-05-2023 Resolved: 780936-98-5094GvahnajPffncb and vomiting (20 sources)Postoperative nausea and vomiting; Translations: [Nausea with vomiting, unspecified]Onset: 743581-25-9892PsqljlfiOeixx aftercare (20 sources)Patient encounter status; Translations: [[facility] (current) use of anticoagulants]Onset: 02-09-2024 Resolved: 53-54-9091BruhjqqwPbhcmof on above:Problem List clean-up per request of Phys. EHR CmteOther and unspecified benign neoplasm (20 sources)History of polyp of colon; Translations: [History of colon polyps] Onset: 538993-87-3882EceyjzhxCctep connective tissue disease (1 source)Pain in left finger(s); Translations: [Pain in left finger(s)]Onset: 29-93-2796KifteuriByqbj diseases of kidney and ureters (20 sources)Hydronephrosis; Translations: [Unspecified hydronephrosis]Onset: 04-14-2023 Resolved: 040419-36-3782EjvmwkjzVfjpo infections; including parasitic (20 sources)Personal history of other infectious and parasitic diseases; Translations: [History of COVID-19]Onset: 559066-26-0661JecxwsnyBulna lower respiratory disease (20 sources)Dyspnea; Translations: [Other respiratory abnormalities]Onset: 02-09-2024 Resolved: 167965-67-3176DdwrntfbHdady lower respiratory disease (20 sources)Nodule of lung; Translations: [Solitary pulmonary nodule]Onset: 73-78-7464GflyeapsUnob-; endo-; and myocarditis; cardiomyopathy (except that caused by tuberculosis or sexually transmitted disease) (20 sources)Cardiomyopathy; Translations: [Cardiomyopathy, unspecified]Onset: 02-09-2024 Resolved: 617126-86-1361KttilaxPnpwwtb on above:Problem List clean-up per request of Phys. EHR CmteUnclassified (3 sources)Never smoked tobacco; Translations: [Never a smoker]Viral infection (20 sources)Disease caused by 2019-nCoV; Translations: [COVID-19]Onset: 08-05-2023 Resolved: 948592-76-4667MghjvlxsGbusuwd on above:Problem List clean-up per request of Phys. EHR Cmte Results Test NameValueInterpretationReference RangeFacilityALL CBC WITH AUTO DIFFon 01-87-7585Wrzgcvjptew distribution width (RBC) [Ratio]13.2 %11.0 - 15.0 %NOMS HealthcareHematocrit (Bld) [Volume fraction]38.4 %Low42.0 - 54.0 %[facility] HealthcareHemoglobin (Bld) [Mass/Vol]13.1 g/dLLow14.0 - 18.0 g/dLNOMS Healthcare Interpretation and review of laboratory resultsAbnormalCass Medical CenterH (RBC) [Entitic mass]34.3 tpUpqi60.9 - 34.0 pgCass Medical CenterHC (RBC) [Mass/Vol]34.1 g/dL29.9 - 35.2 g/dLCass Medical CenterV (RBC) [Entitic vol]100.5 dROxyr60.0 - 94.0 fLMercy hospital springfieldPlatelet mean volume (Bld) [Entitic vol]8.6 fLLow9.5 - 13.5 fLMercy hospital springfieldTBH VWC396EdkBDKVMercy hospital springfieldTB RBC3.82LowMercy hospital springfield TB WBC23.8HHospital Sisters Health [facility] St[facility] Medical CenterCLINISYNCNOMS [facility] CenterECHOon 06-13-2025 EchocardiographyEchocardiography Report: Transthoracic Echo [facility] Date of service: 06/13/2025 10:33:42 AM OFFICER Ordering physician: ITA TUTTLE Exam indication: Sustained [...] * * * Final * * * [employer] [facility] : [id number] [facility] LDHon 64-37-4895XOM [Catalytic activity/Vol]299 U/LHigh85 - 227 U/LNOMS HealthcareCCF CMP (CMP) (FOR REMOTE [facility] USE)on 16-97-9001Oeydbou [Mass/Vol]3.5 g/dL3.4 - 5.0 g/dLNODE HealthcareALBUMIN GLOBULIN RATIO1.3NODE HealthcareALP [Catalytic activity/Vol]66 U/L46 - 116 U/L NOMS HealthcareALT [Catalytic activity/Vol]48 U/L16 - 63 U/LNOMS HealthcareAnion gap [Moles/Vol]11.2 mmol/LNOMS HealthcareAST [Catalytic activity/Vol]30 U/L15 - 37 U/LNOMS HealthcareBilirubin [Mass/Vol]2.0 mg/dLHigh0.2 - 1.0 mg/dLNODE HealthcareCalcium [Mass/Vol]8.4 mg/dLLow8.5 - 10.1 mg/dLNODE HealthcareChloride [Moles/Vol]102 mmol/L98 - 107 mmol/LNOMS HealthcareCO2 [Moles/Vol]33.3 mmol/L High21.0 - 32.0 mmol/LNOMS HealthcareCreatinine [Mass/Vol]0.88 mg/dL0.70 - 1.30 mg/dLNODE HealthcareGFR/1.73 sq M.predicted CKD-EPI (S/P/Bld) [Vol rate/Area]>60 >=60 mL/min/1.73m 2NOMS HealthcareGlobulin (S) [Mass/Vol]2.7 g/dLNODE Healthcare Glucose [Mass/Vol]84 mg/dL74 - 106 mg/dLNOMS HealthcarePotassium [Moles/Vol]3.5 mmol/L3.5 - 5.1 mmol/LNOMS HealthcareProtein [Mass/Vol]6.2 g/dLLow6.4 - 8.2 g/dL [facility] springfieldSodium [Moles/Vol]143 mmol/L136 - 145 mmol/LNBAILEY MEDICAL [facility] [place] HealthcareTB EGFR-NON AF ESTONIAN>60>=60 mL/min/1.73m 2NOMS HealthcareUrea nitrogen [Mass/Vol]23.0 mg/dLHigh7.0 - 18.0 mg/dLMercy hospital springfieldUrea nitrogen/Creatinine [Mass ratio]26.1 mg/mgMercy hospital springfieldNo Panel Informationon 06-08-2025 Interpretation and review of laboratory resultsAbHarris Regional Hospital CBC WITH AUTO DIFFon 67-85-1355Vgxduwpjkow distribution width (RBC) [Ratio]14.1 %11.0 - 15.0 %[facility] springfieldHematocrit (Bld) [Volume fraction]33.5 %Low42.0 - 54.0 %[facility] springfieldHemoglobin (Bld) [Mass/Vol]11.3 g/dLLow14.0 - 18.0 g/dLMercy hospital springfieldInterpretation and review of laboratory resultsAbnoThe Children's Hospital Foundation (RBC) [Entitic mass]36.3 tcSvac22.9 - 34.0 pg [facility] (RBC) [Mass/Vol]33.7 g/dL29.9 - 35.2 g/dLCass Medical CenterV (RBC) [Entitic vol]107.7 sJZkbh82.0 - 94.0 fLSaint Francis Medical Centerlet mean volume (Bld) [Entitic vol]8.8 fLLow9.5 - 13.5 fLSullivan County Memorial Hospital LCS800MzeKXTOSullivan County Memorial Hospital RBC3.11LowSullivan County Memorial Hospital WBC24.4HighFreeman Orthopaedics & Sports MedicineINISParkwest Medical Center CBC WITH AUTO DIFFon 85-39-9417Jejfnrcxkvy distribution width (RBC) [Ratio]15.6 %High11.0 - 15.0 %[facility] springfieldHematocrit (Bld) [Volume fraction]32.1 %Low42.0 - 54.0 %NOMS HealthcareHemoglobin (Bld) [Mass/Vol]10.5 g/dLLow14.0 - 18.0 g/dLBEAVER VALLEY HOSPITAL HealthcareInterpretation and review of laboratory resultsAbnormSharon Regional Medical Center (RBC) [Entitic mass]36.7 uoOwtd67.9 - 34.0 pg [facility] (RBC) [Mass/Vol]32.7 g/dL29.9 - 35.2 g/dLCass Medical CenterV (RBC) [Entitic vol]112.2 mBJaoj89.0 - 94.0 fLMercy hospital springfieldPlatelet mean volume (Bld) [Entitic vol]9.1 fLLow9.5 - 13.5 fLSullivan County Memorial Hospital XTH958DMLSSaint Joseph Hospital of Kirkwood RBC2.86LowNOSaint Joseph Hospital of Kirkwood WBC29.2HFormerly [facility], later [facility] HealthcareALL CBC WITH AUTO DIFFon 35-81-9244Bsxfpwunlez distribution width (RBC) [Ratio]16.6 %High11.0 - 15.0 %[facility] springfieldHematocrit (Bld) [Volume fraction]27.9 %Low42.0 - 54.0 %[facility] springfieldHemoglobin (Bld) [Mass/Vol]9.2 g/dLLow14.0 - 18.0 g/dLBEAVER VALLEY HOSPITAL HealthcareInterpretation and review of laboratory resultsAbnormSharon Regional Medical Center (RBC) [Entitic mass]37.2 qzRqot99.9 - 34.0 pg [facility] (RBC) [Mass/Vol]33 g/dL29.9 - 35.2 g/dLCass Medical CenterV (RBC) [Entitic vol]113 nUOklg46.0 - 94.0 fLMercy hospital springfieldPlatelet mean volume (Bld) [Entitic vol]9.2 fLLow9.5 - 13.5 fLSullivan [facility] Hospital UNI794LeaTRVFSaint Joseph Hospital of Kirkwood RBC2.47LowSullivan County Memorial Hospital WBC26.8HighCincinnati Children's Hospital Medical Center HealthcareAntibody Identificationon [id number] IdentificationWARM PAM [facility] Physician GroupComment on above:Result Comment: Auto-Anti-D Auto-Anti-e Testing performed and reported by [facility].Blood Bank Pathologist Reviewon 57-76-8740Pmffa Bank Pathologist ReviewSent to [facility] Physician GroupComment on above: Result Comment: PERFORMED BY: [address] [address] PATHOLOGIST CHILD SUPPORT OFFICER DANIELLE QUINONES M.D.[facility] BB Sendouton 61-40-9295Oblxjwaz [employer] BB SendoutSent to [facility] Physician GroupComment on above: Result Comment: Sent to [facility] for further testing. Final report to follow. PERFORMED BY: [address] [address] PATHOLOGIST CHILD SUPPORT OFFICER DANIELLE QUINONES M.D.Complement DATon 33-46-3809Qgzfhrktts C3B,-C3D AHGPositive Critically abnormalNegativeOrlando Health South Lake Hospital Physician [facility] SystemComtr[facility] on above:Result Comment: PERFORMED BY: [address] [address] PATHOLOGIST CHILD SUPPORT OFFICER DANIELLE QUINONES M.D.Direct Antiglobulin Teston 37-37-4116MiW AHGPositive Critically abnormalNegativeThe [facility] Physician GroupDirect [place] 76-56-1636Fiqfjivydvsv AHGPositiveCritically abnormalNegativeThe [facility] Physician [facility] SystemComtrinity health [facility] on above:Result Comment: PERFORMED BY: [address] [address] PATHOLOGIST CHILD SUPPORT OFFICER DANIELLE QUINONES M.D.Jalil 05-13-2025L Specimen: [id number] Received: 05/16/25 Status: FRANCIS Yin Num: [id number] Spec Type: Impression Subm Dr: Christian Carlos, II, DO Tissues: PATHBBK Procedures: PATHREVIEW Age/ Patient Sex Location Account Attending Physician Darius Valera 64/M [id number] Christian Carlos II DO SPEC NUM: [id number] RECD: 05/16/25-1159 STATUS: FRANCIS YIN NUM: [id number] MELONIE: 05/13/25- SUBM DR: Christian Carlos II, DO ENTERED: 05/16/25-[address] [facility] [address]: SPEC TYPE: Impression DEPT: [place] ORDERED: PATHREVIEW ORDERED: PATHREUNIVERSITY [facility] Blood Bank Results Date Time Test Result Flag (u) Normal Range 05/12/25935 Ab Screen POSITIVE AB ID 05/12/25935 AUTO, Panaglutin, Warm Auto-Anti-D Auto-Anti-e Testing performed and reported by [facility]. Pathologist Review [facility] [facility] reports detection of auto anti-D, auto anti-e, nonspecific reactivity, and probable warm autoantibody. Recommendation: The majority of ABO/Rh D compatible units will be incompatible with neat serum/plasma. Specimen: [id number] Received: 05/16/25 Status: FRANCIS Veronika Num: [id number] Spec Type: Impression Subm Dr: Christian Carlos II, DO Tissues: DEBORAH Procedures: PATHREVIEW Patient: Darius Valera [id number] (Continued) Signed (signature on file) Vinay Cowan JR, MD 05/25/[address] [place] [address] GroupAlanine aminotransferase [Enzymatic activity/volume] in Serum or PlasmaOrdered By: Christian Carlos on 15-23-1771GQC [Catalytic activity/Vol]23 U/LNormal7-52As[facility] County Medical CenterComment on above:Performed By: #### SCAN CBC, LDH, CMP #### [facility] [address] [place] [address] USAAlbumin [Mass/volume] in Serum or Plasma by Bromocresol green (BCG) dye binding methoOrdered By: Christian Carlos on 02-72-9700Bbgjvsf BCG dye [Mass/Vol]4.2 g/dL3.5-5.7FMartins Ferry HospitalAlkaline phosphatase [Enzymatic activity/volume] in Serum or PlasmaOrdered By: Christian Carlos on 41-19-8933ZVS [Catalytic activity/Vol]69 U/PQiupnj78-236KsrzwybzeAshtabula County Medical CenterComment on above:Performed By: #### SCAN CBC, LDH, CMP #### [place] [address] USAAnisocytosis [Presence] in Blood by Light microscopy Ordered By: Christian Carlos on 57-33-4534Diymdxyhzrwa Ql (Bld)SlightNormal [facility] County Medical CenterComment on above:Performed By: #### SCAN CBC, LDH, CMP #### [place] [address] USAAspartate aminotransferase [Enzymatic activity/volume] in Serum or PlasmaOrdered By: Christian Carlos on 55-93-8276BJL [Catalytic activity/Vol]28 U/JBgqdun26-52CwrbqgcgqAshtabula County Medical CenterComment on above: Performed By: #### SCAN CBC, LDH, CMP #### [place] [address] USABasophils [#/volume] in Blood by Automated countOrdered By: Christian Carlos on 02-52-8238Bfxtxigsq (Bld) [#/Vol]0.1 10*3/uLNormal 0.0-0.2FMartins Ferry HospitalComment on above:Performed By: #### SCAN CBC, LDH, CMP #### [address] [place] [address] USABasophils/100 leukocytes in Blood by Automated count Ordered By: Christian Carlos on 03-00-1135Cgpquwurp/100 WBC (Bld)0.3 %Normal. [facility] County Medical CenterComment on above:Performed By: #### SCAN CBC, LDH, CMP #### [facility] [address] [place] [id number] USABilirubin.total [Mass/volume] in Serum or PlasmaOrdered By: Christian Carlos on 37-85-2054Ujnrsviui [Mass/Vol]3.4 mg/dLHigh0.3-1.0 [facility] Medical CenterComment on above:Samples from patients who have taken [...] By: #### SCAN CBC, LDH, CMP #### [place] [id number] USACalcium [Mass/volume] in Serum or PlasmaOrdered By: Christian Carlos on 88-05-7328Wgmvokw [Mass/Vol]8.7 mg/dLNormal8.6-10.3 [facility] CenterComment on above:Performed By: #### SCAN CBC, LDH, CMP #### [address] [address] USACarbon dioxide, total [Moles/volume] in Serum or Plasma Ordered By: Christian Carlos on 98-29-4573UM9 [Moles/Vol]34.3 mmol/LHigh 21.0-31.0[facility] Medical CenterComment on above:Performed By: #### SCAN CBC, LDH, CMP #### [address] [address] USAChloride [Moles/volume] in Serum or PlasmaOrdered By: Christian Carlos on 11-78-4807Mtfhskvx [Moles/Vol]104 mmol/NFiskwk91-275 [facility] CenterComment on above:Performed By: #### SCAN CBC, LDH, CMP #### [facility] [address] [place] [address] USAComprehensive Metabolic Panelon 46-89-7968Lvchawi [Mass/Vol]4.2 g/dLNormal3.5-5.7The [facility] Physician [facility] Health SystemComment on above: Performed By: #### SCAN CBC, LDH, CMP #### [facility] [address] [place] [address] USACreatinine Clr Calc Spakrzye44.86NormalThe [facility] Corry Memorial HospitalComment on above:Performed By: #### SCAN CBC, LDH, CMP #### [facility] [address] [place] [address] USAGFR/1.73 sq M.predicted MDRD (S/P/Bld) [Vol rate/Area] mL/min/{1.73_m2}NormalThe [facility] Memorial HospitalComment on above:Performed By: #### SCAN CBC, LDH, CMP #### [facility] [address] [place] [address] USACreatinine [Mass/volume] in Serum or PlasmaOrdered By: Christian Carlos on 34-76-7497Zczepbnxvk [Mass/Vol]0.92 mg/dLNormal0.70-1.30 [facility] CenterComment on above:Performed By: #### SCAN CBC, LDH, CMP #### [facility] [address] [place] [address] USADacrocytes [Presence] in Blood by Light microscopyOrdered By: Christian Carlos on 50-98-3463Pbaguncooj LM Ql (Bld)SlightAshtabula County Medical CenterEosinophils [#/volume] in Blood by Automated countOrdered By: Christian Carlos on 12-88-3185Utgjcxurdbi (Bld) [#/Vol]0.0 10*3/uLNormal 0.0-0.45[facility] Medical CenterComment on above:Performed By: #### SCAN CBC, LDH, CMP #### [facility] [address] [place] [address] USAEosinophils/100 leukocytes in Blood by Automated count Ordered By: Christian Carlos on 92-37-8655Axtjfdxorqz/100 WBC (Bld)0.1 %Normal. [facility] Medical CenterComment on above:Performed By: #### SCAN CBC, LDH, CMP #### [place] [address] USAErythrocyte Sedimentation Rateon 50-48-4410LJE (Bld) [Velocity]mm/hNormal0-19The [facility] Physician GroupComment on above:Result Comment: PERFORMED BY: [place] [address] PATHOLOGIST CHILD SUPPORT OFFICER DANIELLE QUINONES M.D.Performed By: #### SCAN CBC, LDH, CMP #### [place] [address] USAErythrocyte distribution width [Ratio] by Automated count Ordered By: Christian Carlos on 47-32-2336Yubxcwmwppu distribution width (RBC) [Ratio]16.6 %High12.0-14.8[facility] County Medical CenterComment on above: Performed By: #### SCAN CBC, LDH, CMP #### [facility] [address] [place] [address] USAErythrocyte morphology finding [Identifier] in Blood Ordered By: Christian Carlos on 43-50-8124QLV morphology finding Nom (Bld)N/A [facility] Medical CenterErythrocyte sedimentation rate by Photometric methodOrdered By: Christian Carlos on 52-97-1781VAC Photometric method (Bld) [Velocity]< 1 mm/hr0-19[facility] Medical CenterErythrocytes [#/volume] in Blood by Automated countOrdered By: Christian Carlos on 97-40-8869JIX (Bld) [#/Vol]2.39 10*6/uLLow3.90-5.60[facility] Medical CenterComment on above:Performed By: #### SCAN CBC, LDH, CMP #### [facility] [address] [place] [address] USAFerritin [Mass/volume] in Serum or PlasmaOrdered By: Christian Carlos on 60-55-0384Jubfefmp [Mass/Vol]179.1 ng/iQMslhjd96.9-336.2 [facility] CenterComment on above:Performed By: #### SCAN CBC, LDH, CMP #### [facility] [address] [place] [address] USAFolate [Mass/volume] in Serum or PlasmaOrdered By: Christian Carlos on 65-44-9381Qypjkd [Mass/Vol]19.3 ng/mL>5.9[facility] Medical CenterComment on above:Folate reference range: >5.9 ng/mlThe WHO technical consultation on folate and vitamin i43trlgvgzdavll has determined that folate concentrations lessthan 4 ng/ml are considered deficient.Glomerular filtration rate [Volume Rate/Area] in Serum, Plasma or Blood by Creatinine Ordered By: Christian Carlos on 45-54-3586Lhiftcpyfe filtration rate [Volume Rate/Area] in Serum, Plasma or Blood by Creatinine> 60.0 mL/MinAshtabula County Medical CenterGlucose [Mass/volume] in Serum or PlasmaOrdered By: Christian Carlos on 36-61-2468Xsilyan [Mass/Vol]88 mg/fLHmsqqz36-560PjpstnliqAshtabula County Medical CenterComment on above:ADA recommended reference rangeRandom Glucose Reference [...] SCAN CBC, LDH, CMP #### [facility] [address] [place] [address] USAHaptoglobinon 75-20-0207BFKDFXWSVXHnd/dLLow44 - 215 mg/dL [facility] HealthcareInterpretation and review of laboratory resultsAbnormalNOMS HealthcareNOMS HealthcareHaptoglobin<17Iea32-620Mnw [facility] Physician Group Comment on above:Result Comment: PERFORMED BY: [place] [address] PATHOLOGIST CHILD SUPPORT OFFICER DANIELLE QUINONES M.D.Performed By: #### SCAN CBC, LDH, CMP #### [place] [address] USAHaptoglobin [Mass/volume] in Serum or PlasmaOrdered By: Christian Carlos on 55-90-5236Iztphpbwere [Mass/Vol]mg/gCYun75-862ZsqrhqwlcAshtabula County Medical CenterHematocrit [Volume Fraction] of Blood by Automated count Ordered By: Christian Carlos on 83-24-1206Gpsruvfvpi (Bld) [Volume fraction] 26.6 %Low38.8-50.0[facility] County Medical CenterComment on above:Performed By: #### SCAN CBC, LDH, CMP #### [place] [address] USAHemoglobin [Mass/volume] in BloodOrdered By: Christian Carlos on 13-04-8415Bikenbmgkf (Bld) [Mass/Vol]8.9 g/dLLow13.0-17.0[facility] Medical CenterComment on above:Performed By: #### SCAN CBC, LDH, CMP #### [place] [address] USAHypochromia LM Ql (Bld)Ordered By: Christian Carlos on 78-73-3946Vehpxkwzaip Ql (Bld)SlightAshtabula County Medical CenterIron [Mass/volume] in Serum or PlasmaOrdered By: Christian Carlos on 00-08-5498Rmua [Mass/Vol]139 ug/aQZuufvq69-660VpfvdijyiAshtabula County Medical CenterComment on above:Performed By: #### SCAN CBC, LDH, CMP #### [place] [address] USAIron and TIBC Profileon 05-12-2025% Iron Oajsjwjway19.2 % Isbumv94-19Pul [facility] Physician GroupComment on above:Performed By: #### SCAN CBC, LDH, CMP #### [facility] [address] [place] [address] USATotal Iron Binding Cuvoqmco483 ug/pSFnotiy635-659Tob [facility] Physician GroupComment on above:Performed By: #### SCAN CBC, LDH, CMP #### [facility] [address] [place] [address] USALeukocytes [#/volume] corrected for nucleated erythrocytes in Blood by Automated counOrdered By: Christian Carlos on 78-76-5373RDK corrected for nucl RBC Auto (Bld) [#/Vol]24.7 10*3/uLHigh4.1-10.5FMartins Ferry HospitalLeukocytes [#/volume] in Blood by Automated countOrdered By: Christian Carlos on 70-98-0735IJS (Bld) [#/Vol]24.7 10*3/uLHigh4.1-10.5 [facility] Medical CenterComment on above:Performed By: #### SCAN CBC, LDH, CMP #### [facility] [address] [place] [address] USALymphocytes [#/volume] in Blood by Automated countOrdered By: Christian Carlos on 73-78-8640Xpgkhurdizy (Bld) [#/Vol]18.5 10*3/uLHigh 1.00-4.8[facility] Medical CenterComment on above:Performed By: #### SCAN CBC, LDH, CMP #### [facility] [address] [place] [address] USALymphocytes/100 leukocytes in Blood by Automated count Ordered By: Christian Carlos on 14-12-0227Bgqaombnluz/100 WBC (Bld)74.6 %Normal .[facility] Medical CenterComment on above:Performed By: #### SCAN CBC, LDH, CMP #### [facility] [address] [place] [address] USAMCH [Entitic mass] by Automated countOrdered By: Christian Carlos on 37-14-2799HEM (RBC) [Entitic mass]37.3 epEcwb90.5-35.2FMartins Ferry HospitalComment on above:Performed By: #### SCAN CBC, LDH, CMP #### [facility] [address] [place] [address] Auto (RBC) [Mass/Vol]Ordered By: Christian Carlos on 06-87-9805IEQG (RBC) [Mass/Vol]33.5 g/dL32.5-35.6FMartins Ferry HospitalMCV [Entitic volume] by Automated countOrdered By: Christian Carlos on 46-61-1879NXX (RBC) [Entitic vol]111.3 rILsrh64.5-101[facility] Medical CenterComment on above:Performed By: #### SCAN CBC, LDH, CMP #### [place] [address] USAMicrocytes LM Ql (Bld)Ordered By: Christian Carlos on 32-88-0146Nulcrlbwur Ql (Bld)MarkedAshtabula County Medical CenterMonocytes [#/volume] in Blood by Automated countOrdered By: Christian Carlos on 92-88-6980Enhilsbmh (Bld) [#/Vol]0.6 10*3/uLNormal0.0-0.8[facility] Medical CenterComment on above:Performed By: #### SCAN CBC, LDH, CMP #### [facility] [address] [place] [address] USAMonocytes/100 leukocytes in Blood by Automated count Ordered By: Christian Carlos on 04-47-6114Zbpbxthpm/100 WBC (Bld)2.6 %Normal. [facility] Medical CenterComment on above:Performed By: #### SCAN CBC, LDH, CMP #### [facility] [address] [place] [address] USANeutrophils [#/volume] in Blood by Automated countOrdered By: Christian Carlos on 97-58-7093Junhstsafqm (Bld) [#/Vol]5.5 10*3/uLNormal 1.8-7.7FMartins Ferry HospitalComment on above:Performed By: #### SCAN CBC, LDH, CMP #### [facility] [address] [place] [address] USANeutrophils/100 leukocytes in Blood by Automated count Ordered By: Christian Carlos on 31-46-3833Agkdgvswayr/100 WBC (Bld)22.4 %Normal .[facility] Medical CenterComment on above:Performed By: #### SCAN CBC, LDH, CMP #### [facility] [address] [place] [address] USANo Panel InformationOrdered By: Christian Carlos on 27-90-7787Rqarvxxs Creatinine Clearance (Chem87.86[facility] Medical CenterNucleated erythrocytes [Presence] in Blood by Automated countOrdered By: Christian Carlos on 40-38-3722Bcmdfutsl RBC Auto Ql (Bld)0.1 /100{WBC}0-0.5 [facility] Medical CenterPlatelet adequacy [Presence] in Blood by Light microscopyOrdered By: Christian Carlos on 25-95-3329Vmcymgtwd LM Ql (Bld)Normal [facility] City HospitalPlatelet mean volume [Entitic volume] in Blood by Automated countOrdered By: Christian Carlos on 85-66-3156Fkynucrf mean volume (Bld) [Entitic vol]7.0 fLNormal6.6-10.1FMartins Ferry Hospital Comment on above:Performed By: #### SCAN CBC, LDH, CMP #### [facility] [address] [place] [address] USAPlatelet morphology finding [Identifier] in BloodOrdered By: Christian Carlos on 90-57-7364Yarsqzdl morphology finding Nom (Bld)Normal [facility] City HospitalPlatelets [#/volume] in Blood by Automated countOrdered By: Christian Carlos on 45-08-0797Nyvdynbsb (Bld) [#/Vol]178 10*3/lMHvrgbn357-555FfeuuulnoAshtabula County Medical CenterComment on above:Performed By: #### SCAN CBC, LDH, CMP #### [facility] [address] [place] [id number] USAPolychromasia [Presence] in Blood by Light microscopy Ordered By: Christian Carlos on 08-90-0739Nelwhcqdtuhfv LM Ql (Bld)Moderate [facility] CenterPotassium [Moles/volume] in Serum or Plasma Ordered By: Christian Carlos on 11-56-3415Crteiwzzd [Moles/Vol]3.6 mmol/LNormal 3.5-5.1FMartins Ferry HospitalComment on above:Performed By: #### SCAN CBC, LDH, CMP #### [facility] [address] [place] [address] USAProtein [Mass/volume] in Serum or PlasmaOrdered By: Christian Carlos on 54-24-1581Jrhnatt [Mass/Vol]5.8 g/dLLow6.4-8.9[facility] CenterComment on above:Performed By: #### SCAN CBC, LDH, CMP #### [place] [address] USAScan and CBCon 88-20-0809GyxhrpoizebuiFkzqcqNlwmjdVbo [facility] Physician GroupComment on above:Performed By: #### SCAN CBC, LDH, CMP #### [place] [address] USAMean Corpuscular HGB Conc33.5 g/bEMpfjtm66.5-35.6The [facility] Physician [facility] Health SystemComment on above:Performed By: #### SCAN CBC, LDH, CMP #### [place] [address] USAMicrocytosisMarkedPAM Health [facility]ty [facility] Physician [facility] Comment on above:Performed By: #### SCAN CBC, LDH, CMP #### [facility] [address] [place] [address] USANRBC%0.1 /100{WBC}Normal0-0.5The [facility] Physician [facility] Comment on above:Performed By: #### SCAN CBC, LDH, CMP #### [place] [address] USAPlatelet EstimateNormalNormalPAM Health [facility] Physician [facility] SystemComment on above:Performed By: #### SCAN CBC, LDH, CMP #### [place] [address] USAPlatelet MorphologyNormalNormalPAM Health [facility] Physician GroupComment on above:Performed By: #### SCAN CBC, LDH, CMP #### [place] [address] USAPolychromasiaModerateNoUNC Health Physician [facility] Comment on above:Performed By: #### SCAN CBC, LDH, CMP #### [place] [address] USATear Drop CellsSlightPAM Health Specialty Hospital of [facility] Physician Group Comment on above:Performed By: #### SCAN CBC, LDH, CMP #### [place] [address] USAWhite Blood Count24.7 [CFU]/mLHigh4.1-10.5The [facility] Physician GroupComment on above:Performed By: #### SCAN CBC, LDH, CMP #### [place] [address] USASerum globulin measurement by calculation (mass/volume) Ordered By: Christian Carlos on 54-00-1706Hhlarkue (S) [Mass/Vol]1.6 g/dLNoal [facility] CenterComment on above:Performed By: #### SCAN CBC, LDH, CMP #### [place] [address] USASerum or plasma albumin/globulin mass ratioOrdered By: Christian Carlos on 07-72-9701Fgdxlem/Globulin [Mass ratio]2.6 {ratio}Normal [facility] Medical CenterComment on above:Performed By: #### SCAN CBC, LDH, CMP #### [place] [address] USASerum or plasma anion gap determinationOrdered By: Christian Carlos on 85-36-8905Xgrwi gap [Moles/Vol]7.3 mmol/LNormal6.0-15.0[facility] Medical CenterComment on above:Performed By: #### SCAN CBC, LDH, CMP #### [place] [address] USASerum or plasma iron binding capacity measurement (mass/volume)Ordered By: Christian Carlos on 00-54-3858Dylj binding capacity [Mass/Vol]301 ug/lR218-075JijdlvyrqMain Campus Medical Centererum or plasma iron saturation measurement (mass fraction)Ordered By: Christian Carlos on 03-88-4100Raed saturation [Mass fraction]46.2 %20-50Main Campus Medical Centerodium [Moles/volume] in Serum or PlasmaOrdered By: Christian Carlos on 10-12-0334Pnfefx [Moles/Vol]142 mmol/QVmeoek350-210ClumowsuhAshtabula County Medical CenterComment on above:Performed By: #### SCAN CBC, LDH, CMP #### [facility] [address] [place] [address] USATransferrin [Mass/volume] in Serum or PlasmaOrdered By: Christian Carlos on 48-81-6901Rxowpwnqvrh [Mass/Vol]215 mg/jHZllglv899-936 [facility] CenterComment on above:Performed By: #### SCAN CBC, LDH, CMP #### [facility] [address] [place] [address] USAType and Screenon 94-98-2880IHR and Rh group Nom (Bld) Blood group O Rh(D) positiveNoUNC Health Physician GroupComment on above: Result Comment: PERFORMED BY: [place] [address] PATHOLOGIST CHILD SUPPORT OFFICER DANIELLE QUINONES M.D.US spleenon 64-73-4375DL spleenNATIONWIDE CHILDR[facility] Main [place] [address] [place], [place] [id number] Ultrasound Report Signed Patient: Darius Valera MR#: [id number] 10 : 1960 Acct:[id number] Age/Sex: 64 / M ADM Date: 05/12/25 Loc: XT [facility]: [facility]ending [facility]: Christian Carlos II DO Ordering Provider: Christian aCrlos II, DO Date of Service: 05/12/25 US/US spleen: D72.820 - Lymphocytosis (symptomatic) Copies to: Christian Carlos II, DO Ultrasound of the spleen No priors. HISTORY: Lymphocytosis. Lymphocytic leukemia. Abdominal pain. The spleen measures 15.6 x 7.7 x 15.9 cm. No splenic lesion. No perisplenic abnormality. US/US spleen IMPRESSION: Splenomegaly. Impression dictated by: Joey Curry M.D. 05/12/2025 1:08 PM Dictation Location: [place] [address] Tech: Caterinamarietta Aguirre Transcribed By: WADE 05/12/25 1308 Dictated By: Joey Curry DO 05/12/25 1303 Signed By: 05/12/25 1308P[facility] Physician GroupUrea nitrogen [Mass/volume] in Serum or PlasmaOrdered By: Christian Carlos on 46-49-1541Adkw nitrogen [Mass/Vol]20 mg/dLNormal03-18[facility] CenterComment on above: Performed By: #### SCAN CBC, LDH, CMP #### [facility] [address] [place] [address] USAVit. B12/Folate Profileon 13-01-7794Eftcfy16.3 ng/mLNormal >5.9The [facility] Physician GroupComment on above:Result Comment: Folate reference range: >5.9 ng/ml The WHO technical consultation on folate and vitamin b12 deficiencies has determined that folate concentrations less than 4 ng/ml are considered deficient. PERFORMED BY: [place] [address] PATHOLOGIST CHILD SUPPORT OFFICER DANIELLE QUINONES M.D.Performed By: #### SCAN CBC, LDH, CMP #### [facility] [address] [place] [id number] USAVitamin B12 ser/plasOrdered By: Christian Carlos on 09-79-3404Cmasswcfh (Vitamin B12) [Mass/Vol]492 pg/mQXadorq229-413MmoihchsoAshtabula County Medical CenterComment on above:Performed By: #### SCAN CBC, LDH, CMP #### [facility] [address] [place] [address] USAALL SED RATEon 31-63-0892HTI SED RATE<1NINFCommunity HealthCNOVon 58-84-1723FTHFNfpiqy Visit (CARDAV) DARIUS VALERA ([id number]) 1960 M Date Time Provider Department 04/04/25 2:30 PM ITA TUTTLE During your visit today, we recorded the following information about you: Pulse Blood pressure Weight Height 76/minute 132/88 88.6 kg 1.829 m Ita Tuttle MD 04/04/2025 2:57 PM Signed [facility] Heart and Vascular [place] Sissy Zepeda Department of Cardiovascular Medicine SECTION [...] male here today for follow up from [place], [place]. Has h/o AF s/p ablation, HTN, DMITRY, tachycardia induced CMP, and CHF. On Eliquis, Nifedipine XL, Valsartan/HCTZ added on Doxazosin. Doxazocin increased to 2 mg but has been using only 1 mg daily. Continue to have BP spikes above 150s. Sotalol was discontinued. He followed before with a local chili pepper grinder Dr Hooks. Since last visit denies chest [...] Date Value 03/22/2022 0.90 (more content not included)...NormalB[facility] COMPLETEon 59-34-2587Ujgiwc Wbsy16PIMPrhgieyej ClinicCalculated P Qirh55hghsuddTsyeqehwa ClinicCalculated R Ehdz0avjoawqWmqzilizi ClinicCalculated T Rjvv86ryhdmtl [facility] SystemP-R Ijmvinxb067 msCleveland ClinicQRS Mzdqhpxv69 msCleveland ClinicQT Hmibzcjh854 msCleveland ClinicQTC Calculation (Bazett)425 msCleveland ClinicVentricular Ipwf88WZXNrlnmzfgz ClinicNORMAL SINUS RHYTHM NORMAL ECG Confirmed by JADE DAS MD ([id number]) on 04/04/2025 5:11:38 PMHEART AND VASCULAR INSTITUTENAME : DARIUS VALERA PID : [id number] : 1960 Gender : Male Race : ORD : Procedure Date : Apr 04 2025 14:34:56 Edit Date : Apr 04 2025 17:11:41 Diagnosis: NORMAL SINUS RHYTHM NORMAL ECG Confirmed by JADE DAS MD ([id number]) on 04/04/2025 5:11:38 PM Test Reason : Location : 192 : AVCRD Overread By : JADE DAS MD Edited By : JADE DAS MD Referred By : , Acquired by : ,[facility] AND VASCULAR INSTITUTEHolzer Health SystemECG01on 04-04-2025 SFJ40Psrlfghjgwl Rate : 76 BPM Atrial Rate : 76 BPM P-R Interval : 178 ms QRS Duration : 86 ms Q-T Interval : 378 ms QTC Calculation(Bazett) : 425 ms Calculated P [place] : 13 degrees Calculated R [place] : 0 degrees Calculated T [place] : 18 degrees NORMAL SINUS RHYTHM NORMAL ECG Confirmed by JADE DAS MD ([id number]) on 04/04/2025 5:11:38 PM NAME : DARIUS VALERA PID : [id number] : 1960 Gender : Male Race : ORD : Procedure Date : Apr 04 2025 14:34:56 Edit Date : Apr 04 2025 17:11:41 Diagnosis: NORMAL SINUS RHYTHM NORMAL ECG Confirmed by JADE DAS MD ([id number]) on 04/04/2025 5:11:38 PM Test Reason : Location : 192 : AVCRD Overread By : JADE DAS MD Edited By : JADE DAS MD Referred By : , Acquired by : ,[facility] DaytonHEMOGLOBIN A1con 69-22-2469FkL4t (Bld) [Mass fraction]%Normal<5.7Quest DiagnosticsComment on above:Result Comment: [...] diagnosis of diabetes in children. According to [place] Diabetes Association (ADA) guidelines, hemoglobin A1c <7.0% represents optimal control in non- diabetic patients. Different metrics may apply to specific patient populations. Standards of Medical Care in Diabetes(ADA).Performed By: #### 5363, 84416, 20957, 496, 7600 #### [facility] [address], [address] [place] [address] Grab Setter: Memo Marquis MDLIPID PANEL, [facility] 83-06-8994Hpjatfetsin [Mass/Vol]140 mg/dLNormal<200Quest DiagnosticsComment on above:Order Comment: FASTING:YES FASTING: YESPerformed By: #### 5363, 71179, 37592, 496, 7600 #### [facility] [address], [address] [place], [place] [address] Grab Setter: Memo Marquis MDCholesterol in HDL [Mass/Vol]67 mg/dLNormal> OR = 40Quest DiagnosticsComment on above:Order Comment: FASTING:YES FASTING: YESPerformed By: #### 5363, 28977, 48903, 496, 7600 #### [facility] [address], [address] [place] [address] Grab Setter: Memo Marquis MDCholesterol in LDL [Mass/Vol]60 mg/dLNormal [...] LDL-C. Hilario VALDIVIA et al. ARNULFO. 2013;310(19): 0765-0395 (http://education.[employer]/faq/LPH350)Performed By: #### 5363, 02399, 43474, 496, 7600 #### [facility] [address], [address] [place] [address] Grab Setter: Memo HANKSholesterol.total/Cholesterol in HDL [Mass ratio]2.1 {ratio}Normal<5.0Quest DiagnosticsComment on above:Order Comment: FASTING:YES FASTING: YESPerformed By: #### 5363, 31089, 26223, 496, 7600 #### [facility] [address], [address] [place] [address] Grab Setter: Memo SAUCEDA HDL YXJXUIFBKVO99 mg/dL (calc)Normal<130 Quest DiagnosticsComment on above:Order Comment: FASTING:YES FASTING: YESResult Comment: For patients with diabetes plus 1 major ASCVD risk factor, treating to a non-HDL-C goal of <100 mg/dL (LDL-C of <70 mg/dL) is considered a therapeutic option.Performed By: #### 5363, 65456, 74549, 496, 7600 #### [facility] [place] [address] Grab Setter: Memo Marquis MDTriglyceride [Mass/Vol]53 mg/dLNormal<150Quest DiagnosticsComment on above:Order Comment: FASTING:YES FASTING: YESPerformed By: #### 5363, 51796, 75422, 496, 7600 #### [facility] [address], [address] [place] [address] Grab Setter: Memo GAMINGSA, TOTALon 27-63-0935PMJ, TOTAL0.62 ng/mL Normal< OR = 4.00Quest DiagnosticsComment on above:Result Comment: The total PSA value from this assay system is standardized against the WHO standard. The test result will be approximately 20% lower when compared to the equimolar-standardized total PSA ([place]). Comparison of serial PSA results should be interpreted with this fact in mind. This test was performed using the Siemens chemiluminescent method. Values obtained from different assay methods cannot be used interchangeably. PSA levels, regardless of value, should not be interpreted as absolute evidence of the presence or absence of disease.Performed By: #### 5363, 98495, 84382, 496, 7600 #### [facility] [address], [address] [place] [address] Grab Setter: Memo Marquis MDTS W/REFLEX TO FT4on 13-55-0991WFP W/REFLEX TO FT40.97 mIU/LNormal0.40-4.50Quest DiagnosticsComment on above:Performed By: #### 5363, 68952, 68207, 496, 7600 #### [facility] [address], [address] [place] [address] Grab Setter: Memo Marquis MDVITAMIN D,25-OH,TOTAL,IAon 18-32-2589SGLMVBO D,25-OH,TOTAL,IA58 ng/sNVygypv11-200Ytqjr DiagnosticsComment on above:Result Comment: Vitamin D Status 25-OH Vitamin D: Deficiency: <20 ng/mL Insufficiency: 20 - 29 ng/mL Optimal: > or = 30 ng/mL For 25-OH Vitamin D testing on patients on D2-supplementation and patients for whom quantitation of D2 and D3 fractions is required, the QuestAssureD(TM) 25-OH VIT D, (D2,D3), LC/MS/MS is recommended: order code 04263 (patients >2yrs). See Note 1 Note 1 For additional information, please refer to http://education.[employer]/faq/OOP470 (This link is being provided for informational/ educational purposes only.)Performed By: #### 5363, 94085, 33823, 496, 7600 #### [facility] [address], [address] [place] [address] Grab Setter: Memo Marquis MDPATHOLOGY REQUEST FOR LAB CORPon 02-15-2025 PATHOLOGY REQUEST FOR LAB CORPNODE HealthcareComment on above:See report. Scanned copy available in EMR.[facility] springfieldAlanine aminotransferase [Enzymatic activity/volume] in Serum or Plasmaon 46-90-7700RZP [Catalytic activity/Vol]31 U/LNormal7-52NOMS HealthcareComment on above:Performed By: #### SCAN CBC, LDH, CMP #### [facility] [address] [place] [address] USAAlbumin [Mass/volume] in Serum or Plasma by Bromocresol green (BCG) dye binding methoOrdered By: Christian Carlos on 55-66-0366Kljbwxo BCG dye [Mass/Vol]4.7 g/dL3.5-5.7FMartins Ferry HospitalAlkaline phosphatase [Enzymatic activity/volume] in Serum or Plasmaon 29-44-9400QNI [Catalytic activity/Vol]88 U/BEdsrvb87-106AUIM HealthcareComment on above: Performed By: #### SCAN CBC, LDH, CMP #### [facility] [address] [place] [address] USAAnisocytosis [Presence] in Blood by Light microscopy Ordered By: Christian Carlos on 92-24-2432Cqsotzntnsdt Ql (Bld)SlightNormal [facility] County Medical CenterComment on above:Performed By: #### SCAN CBC, LDH, CMP #### [facility] [address] [place] [address] USAAspartate aminotransferase [Enzymatic activity/volume] in Serum or Plasmaon 83-04-1599JLN [Catalytic activity/Vol]38 U/TPbvmnk28-87DERK HealthcareComment on above:Performed By: #### SCAN CBC, LDH, CMP #### [place] [address] USABasophils Auto (Bld) [#/Vol]Ordered By: Christian Carlos on 38-78-2458Yokslxjrd (Bld) [#/Vol]N/[facility] Basophils/100 WBC Auto (Bld)Ordered By: Christian Carlos on 02-10-2025 Basophils/100 WBC (Bld)N/[facility] Medical CenterBilirubin.total [Mass/volume] in Serum or Plasmaon 34-24-9177Rfqgnmlfb [Mass/Vol]1.9 mg/dLHigh 0.3-1.0NOMS HealthcareComment on above:Samples from [...] SCAN CBC, LDH, CMP #### [facility] [address] [place] [address] USACOAGULATION PROFILEon 81-67-8267rVDG Coag (Bld) [Time]30.1 s25.1 - 36.5 [facility]'s HospitalComment on above:A hematocrit value greater than 55% may lead to inaccurate results in coagulation testing. Patients having hematocrit values >55% require a special collection tube for coagulation studies. Please contact the laboratory at [phone] for redraw instructions. INR Coag (PPP) [Relative time]1 {INR}[facility] HealthcareComment on above:INR Therapeutic Range A) [...] PT Coag (PPP) [Time]11.1 s9.0 - 12.9 [facility] HospitalComment on above:A hematocrit value greater than 55% may lead to inaccurate results in coagulation testing. Patients having hematocrit values >55% require a special collection tube for coagulation studies. Please contact the laboratory at [phone] for redraw instructions. STAT FOR CTFIRELANDSCT guided bone marrow bx/aspiron 52-01-6573RX guided bone marrow bx/aspirNATIONWIDE [facility] Main [place] [address] [place] [address] CT Scan Report Signed Patient: Darius Valera MR#: [id number] 10 : 1960 Acct:[id number] Age/Sex: 64 / M ADM Date: 02/10/25 Loc: CT Room: Type: [facility] Attending Dr: Christian Carlos II DO [...] local anesthesia. Utilizing CT guidance, an 11-gauge [place] biopsy needle was advanced into the right [...] Jr., D.OCarrie 02/10/2025 11:08 AM Dictation Location: [place] [address] Transcribed By: [facility] 02/10/25 1108 Dictated By: Garcia Vanegas Jr, DO 02/10/25 1102 Signed By: 02/10/25 1108[facility] Physician GroupCalcium [Mass/volume] in Serum or Plasmaon 00-40-8762Dlnoqlt [Mass/Vol]9.3 mg/dLNormal8.6-10.3N[facility] Healthcare Comment on above:Performed By: #### SCAN CBC, LDH, CMP #### [facility] [address] [place] [address] USACarbon dioxide, total [Moles/volume] in Serum or Plasmaon 25-80-5206LX2 [Moles/Vol]28.6 mmol/XMqlfpu24.0-31.0NOMS HealthcareComment on above:Performed By: #### SCAN CBC, LDH, CMP #### [facility] [address] [place] [address] USAChloride [Moles/volume] in Serum or Plasmaon 02-10-2025 Chloride [Moles/Vol]106 mmol/SGpautm88-455JSCQ HealthcareComment on above: Performed By: #### SCAN CBC, LDH, CMP #### [place] [address] USACoagulation Profileon 54-84-5856jIQI Coag (Bld) [Time]30.1 rIrcbln98.1-36.5The [facility] Physician GroupComment on above:Order Comment: STAT FOR CTResult Comment: A hematocrit value greater than 55% may lead to inaccurate results in coagulation testing. Patients having hematocrit values >55% require a special collection tube for coagulation studies. Please contact the laboratory at [phone] for redraw instructions. PERFORMED BY: [place] [address] PATHOLOGIST CHILD SUPPORT OFFICER DANIELLE QUINONES M.D.Performed By: #### SCAN CBC, LDH, CMP #### [place] [address] USAComprehensive Metabolic Panelon 03-96-5739Ncfoolu [Mass/Vol]4.7 g/dLNormal3.5-5.7NOMS HealthcareComment on above:Performed By: #### SCAN CBC, LDH, CMP #### [place] [address] USACREATININE CLR CALC TVXYOFPN55.99NormalNOMS Healthcare Comment on above:Result Comment: PERFORMED BY: [address] [place] [address] PATHOLOGIST CHILD SUPPORT OFFICER DANIELLE QUINONES M.D.Performed By: #### SCAN CBC, LDH, CMP #### [facility] [address] [place] [address] USAGFR/1.73 sq M.predicted MDRD (S/P/Bld) [Vol rate/Area] mL/min/{1.73_m2}NormalThe [facility] Of [facility] Physician GroupComment on above:Performed By: #### SCAN CBC, LDH, CMP #### [facility] [address] [place] [address] USAComprehensive metabolic panelon 44-42-5610Agjfolaskd (U) [Mass/Vol]0.86 mg/dL0.70 - 1.30 mg/dLNOMS HealthcareESTIMATED GFRNOMS Healthcare Globulin (S) [Mass/Vol]2 g/dLNOMS HealthcareInterpretation and review of laboratory resultsAbnormalNOMS HealthcareCreatinine [Mass/volume] in Serum or PlasmaOrdered By: Christian Carlos on 61-69-8043Fwowgbnlwz [Mass/Vol]0.86 mg/dL Normal0.70-1.30As[facility]abula County Medical CenterComment on above:Performed By: #### SCAN CBC, LDH, CMP #### [place] [address] USADacrocytes [Presence] in Blood by Light microscopyOrdered By: Christian Carlos on 39-08-0748Tjrurpalci LM Ql (Bld)SlightAshtabula County Medical CenterDiff and CBCon 35-44-8159Mfqp Corpuscular HGB Conc35.2 g/oWMijqzx62.5-35.6The [facility] Physician GroupComment on above:Performed By: #### SCAN CBC, LDH, CMP #### [place] [address] USAOvalocytesSlightNoUNC Health Physician Park[facility] Behavior[facility] Health SystemComment on above:Performed By: #### SCAN CBC, LDH, CMP #### [place] [address] USAPlatelet EstimateNormalNormalNormAtrium Health Clevelandlands Physician GroupComment on above:Performed By: #### SCAN CBC, LDH, CMP #### [place] [address] USAPlatelet MorphologyNormalNormHCA Florida Engle[facility] Hospital Physician GroupComment on above:Result Comment: PERFORMED BY: [place] [address] PATHOLOGIST CHILD SUPPORT OFFICER DANIELLE QUINONES M.D.Performed By: #### SCAN CBC, LDH, CMP #### [place] [address] USAPoikilocytosisSAtrium Health Physician Group Comment on above:Performed By: #### SCAN CBC, LDH, CMP #### [place] [address] USAPolychromasiaSAtrium Health Physician [facility] Comment on above:Performed By: #### SCAN CBC, LDH, CMP #### [place] [address] USATear Drop CellsSAtrium Health Physician [facility] Comment on above:Performed By: #### SCAN CBC, LDH, CMP #### [place] [address] USAWhite Blood Count20.7 [CFU]/mLHigh4.1-10.5The [facility] Physician GroupComment on above:Performed By: #### SCAN CBC, LDH, CMP #### [place] [address] USAEosinophils Auto (Bld) [#/Vol]Ordered By: Christian Carlos on 14-67-0153Qgasvdoferr (Bld) [#/Vol]N/[facility] CenterEosinophils/100 WBC Auto (Bld)Ordered By: Christian Carlos on 02-10-2025 Eosinophils/100 WBC (Bld)N/[facility] CenterEosinophils/100 leukocytes in Blood by Manual countOrdered By: Christian Carlos on 02-10-2025 Eosinophils/100 WBC (Bld)1 %Normal1-3FMartins Ferry HospitalComment on above:Performed By: #### SCAN CBC, LDH, CMP #### [facility] [address] [place] [address] USAErythrocyte distribution width [Ratio] by Automated count Ordered By: Christian Carlos on 31-35-3240Ecwzjetswda distribution width (RBC) [Ratio]13.4 %Zogwur13.0-14.8As[facility] County Medical CenterComment on above: Performed By: #### SCAN CBC, LDH, CMP #### [facility] [address] [place] [address] USAErythrocyte morphology finding [Identifier] in Blood Ordered By: Christian Carlos on 83-70-8127AGQ morphology finding Nom (Bld)N/A [facility] Medical CenterErythrocytes [#/volume] in Blood by Automated countOrdered By: Christian Carlos on 79-33-2981UKO (Bld) [#/Vol]3.98 10*6/uL Normal3.90-5.60[facility] County Medical CenterComment on above:Performed By: #### SCAN CBC, LDH, CMP #### [facility] [address] [place] [address] USAFree K+L LT Chains, Qn, Son 09-27-0881Jjgp [place] Light Chains, S16.3 mg/LNormal3.3-19.4The [facility] Physician GroupComment on above: Performed By: #### SPE, KAPPA, JIGAR SERUM #### [facility] ,Free Lambda Light Chains, S10.6 mg/LNormal5.7-26.3The [facility] Comment on above:Performed By: #### SPE, KAPPA, JIGAR SERUM #### [facility] ,[place]/Lambda Ratio, S1.43Jaduug4.26-1.65The [facility] Physician GroupComment on above:Result Comment: Performed at: - [facility] [id number] Senior Planning Manager: Chad Mccall PhD, Phone: [phone] PERFORMED BY: [place] [address] PATHOLOGIST CHILD SUPPORT OFFICER DANIELLE QUINONES M.D.Performed By: #### JEREMY DAVILA IFE SERUM #### [facility] ,Glucose [Mass/volume] in Serum or Plasmaon 45-29-1016Cescesb [Mass/Vol]106 mg/qNOjrz42-779DMEB HealthcareComment on above:Random Glucose Reference Range is [...] By: #### SCAN CBC, LDH, CMP #### [facility] [address] [place] [id number] USAHematocrit [Volume Fraction] of Blood by Automated count Ordered By: Christian Carlos on 66-15-1205Icupjvhgve (Bld) [Volume fraction] 38.6 %Low38.8-50.0As[facility] County Medical CenterComment on above:Performed By: #### SCAN CBC, LDH, CMP #### [facility] [address] [place] [id number] USAHemoglobin [Mass/volume] in BloodOrdered By: Christian Carlos on 67-48-0727Vvyrrysivp (Bld) [Mass/Vol]13.6 g/bVBacpob97.0-17.0 [facility] County Medical CenterComment on above:Performed By: #### SCAN CBC, LDH, CMP #### [place] [id number] USAINR in Platelet poor plasma by Coagulation assayOrdered By: Christian Carlos on 46-30-4318EXV Coag (PPP) [Relative time]1.0 {INR}Normal [facility] [...] SCAN CBC, LDH, CMP #### [facility] [address] [place] [address] USAImmunofixation,Serumon 98-15-8775Igafksoauzbqea, Serum CommentNormal.The [facility] Physician GroupComment on above:Result Comment: No monoclonality detected.Performed By: #### SPE, KAPPA, JIGAR SERUM #### [facility] ,Immunoglobulin A, Rezvi232 mg/vKFprtil68-129Lsi [facility] Comment on above:Performed By: #### SPE, KAPPA, JIGAR SERUM #### [facility] ,Immunoglobulin G714 mg/pVRzsivp490-3428Eoo [facility] Physician GroupComment on above:Performed By: #### SPE, KAPPA, JIGAR SERUM #### [facility] ,Immunoglobulin M, Serum24 mg/yCAcfeiz65-079Sdb [facility] Physician GroupComment on above:Result Comment: Result confirmed on concentration. Performed at: [facility] [id number] Senior Planning Manager: Chad Mccall PhD, Phone: [phone] By: #### SPE, KAPPA, JIGAR SERUM #### [facility] ,Leukocytes [#/volume] corrected for nucleated erythrocytes in Blood by Automated counOrdered By: Christian Carlos on 58-58-9878MMJ corrected for nucl RBC Auto (Bld) [#/Vol]20.7 10*3/uLHigh4.1-10.5FMartins Ferry Hospital Leukocytes [#/volume] in Blood by Automated countOrdered By: Christian Carlos on 32-31-8866ELJ (Bld) [#/Vol]20.7 10*3/uLHigh4.1-10.5FMartins Ferry HospitalComment on above:Performed By: #### SCAN CBC, LDH, CMP #### [facility] [address] [place] [address] USALymphocytes Auto (Bld) [#/Vol]Ordered By: Christian Carlos on 78-06-1858Tuouhhmojwr (Bld) [#/Vol]N/[facility] CenterLymphocytes/100 WBC Auto (Bld)Ordered By: Christian Carlos on 02-10-2025 Lymphocytes/100 WBC (Bld)N/[facility] Medical CenterLymphocytes/100 leukocytes in Blood by Manual countOrdered By: Christian Carlos on 02-10-2025 Lymphocytes/100 WBC (Bld)69 %Nuit15-91NmghbdxnyAshtabula County Medical CenterComment on above:Performed By: #### SCAN CBC, LDH, CMP #### [facility] [address] [place] [address] [facility] [Entitic mass] by Automated countOrdered By: Christian Carlos on 82-95-2805RCR (RBC) [Entitic mass]34.2 fhJbkjnl47.5-35.2FMartins Ferry HospitalComment on above:Performed By: #### SCAN CBC, LDH, CMP #### [facility] [address] [place] [id number] [facility] Auto (RBC) [Mass/Vol]Ordered By: Christian Carlos on 40-56-1790OTEG (RBC) [Mass/Vol]35.2 g/dL32.5-35.6FMartins Ferry HospitalMCV [Entitic volume] by Automated countOrdered By: Christian Carlos on 46-93-6905XST (RBC) [Entitic vol]97.2 rEEvmqjl05.5-101As[facility] County Medical CenterComment on above:Performed By: #### SCAN CBC, LDH, CMP #### [facility] [address] [place] [id number] USAMonocytes Auto (Bld) [#/Vol]Ordered By: Christian Carlos on 16-36-5238Gbspxmxwj (Bld) [#/Vol]N/[facility] Monocytes/100 WBC Auto (Bld)Ordered By: Christian Carlos on 02-10-2025 Monocytes/100 WBC (Bld)N/[facility] Medical CenterMonocytes/100 leukocytes in Blood by Manual countOrdered By: Christian Carlos on 02-10-2025 Monocytes/100 WBC (Bld)5 %Normal2-11As[facility] County Medical CenterComment on above:Performed By: #### SCAN CBC, LDH, CMP #### [facility] [address] [place] [id number] USANeutrophils Auto (Bld) [#/Vol]Ordered By: Christian aCrlos on 07-81-0896Whqivccsmzz (Bld) [#/Vol]N/[facility] Medical CenterNeutrophils/100 WBC Auto (Bld)Ordered By: Christian Carlos on 02-10-2025 Neutrophils/100 WBC (Bld)N/[facility] CenterNo Panel InformationOrdered By: Christian Carlos on 50-51-6492Yrenjnpsquyhr Pathology TestSee commentAshtabula County Medical CenterComment on above:See report. Scanned copy available in EMR.Estimated GFR (CKD-EPI)> 60.0 mL/MinAshtabula County Medical CenterPharmacy Creatinine Clearance (Chem93.99[facility] Medical CenterProtein Electrophoresis M-SpikeNot observed g/dLNot ObservedAshtabula County Medical CenterProtein Electrophoresis NoteComment. [facility] County Medical CenterComment on above:Protein electrophoresis scan will follow via computer,mail, or k 12 principal delivery.No Panel Informationon 62-86-2020USFA HealthcareNucleated erythrocytes [Presence] in Blood by Automated countOrdered By: Christian Carlos on 41-85-7225Hmqapkcqn RBC Auto Ql (Bld)N/A [facility] Medical CenterOvalocytes [Presence] in Blood by Light microscopyOrdered By: Christian Carlos on 83-49-5830Bacuzltjzl LM Ql (Bld) SlightAshtabula County Medical CenterPathology Request for Lab Corpon 28-23-4953Thmvannvc Request for Lab CorpPAM [facility] Physician Group Comment on above:Result Comment: See report. Scanned copy available in EMR. PERFORMED BY: [place] [address] PATHOLOGIST CHILD SUPPORT OFFICER DANIELLE QUINONES M.D.Performed By: #### SCAN CBC, LDH, CMP #### [facility] [address] [place] [address] USAPlatelet adequacy [Presence] in Blood by Light microscopy Ordered By: Christian Carlos on 34-14-5787Nogvfqpzz LM Ql (Bld)NormalNormal [facility] County Medical CenterPlatelet mean volume [Entitic volume] in Blood by Automated countOrdered By: Christian Carlos on 53-24-7941Cnesiwwr mean volume (Bld) [Entitic vol]7.4 fLNormal6.6-10.1FMartins Ferry Hospital Comment on above:Result Comment: PERFORMED BY: [place] [address] PATHOLOGIST CHILD SUPPORT OFFICER DANIELLE QUINONES M.D.Performed By: #### SCAN CBC, LDH, CMP #### [facility] [address] [place] [address] USAPlatelet morphology finding [Identifier] in BloodOrdered By: Christian Carlos on 85-99-4036Aniuitbh morphology finding Nom (Bld)Normal [facility] City HospitalPlatelets [#/volume] in Blood by Automated countOrdered By: Christian Carlos on 89-47-5510Esxfahwiw (Bld) [#/Vol]158 10*3/rANcjuip611-572FflyadwldAshtabula County Medical CenterComment on above:Performed By: #### SCAN CBC, LDH, CMP #### [facility] [address] [place] [address] USAPoikilocytosis [Presence] in Blood by Light microscopy Ordered By: Christian Carlos on 75-56-1468Zxkcxyvyxoznda LM Ql (Bld)Slight [facility] Medical CenterPolychromasia [Presence] in Blood by Light microscopyOrdered By: Christian Carlos on 17-38-2806Gktfixppnrsid LM Ql (Bld) SlightAshtabula County Medical CenterPotassium [Moles/volume] in Serum or Plasmaon 52-01-7855Wvcmkklje [Moles/Vol]3.8 mmol/LNormal3.5-5.1[facility] Comment on above:Performed By: #### SCAN CBC, LDH, CMP #### [facility] [address] [place] [id number] USAProtein Electrophoresis, Serumon 02-10-2025 Bqfmj-5-Vezrwwpu1.3 g/dLNormal0.0-0.4The [facility] Carolina Physician GroupComment on above:Performed By: #### SPE, KAPPA, JIGAR SERUM #### [facility] ,Bojgz-8-Gymptapi5.5 g/dLNormal0.4-1.0The [facility] Physician GroupComment on above:Performed By: #### SPE, KAPPA, JIGAR SERUM #### [facility] ,Beta Globulin0.9 g/dLNormal0.7-1.3The [facility] Physician GroupComment on above:Performed By: #### SPE, KAPPA, JIGAR SERUM #### [facility] ,Gamma Globulin0.7 g/dLNormal0.4-1.8The [facility] Carolina Physician GroupComment on above:Performed By: #### SPE, KAPPA, JIGAR SERUM #### [facility] ,M-SpikeNot ObservedNormalNot ObservedThe [facility] Carolina Physician GroupComment on above:Performed By: #### SPE, KAPPA, JIGAR SERUM #### [facility] ,SPE-NoteCommentNormal.The [facility] Physician GroupComment on above:Result Comment: Protein electrophoresis scan will follow via computer, mail, or k 12 principal delivery.Performed By: #### SPE, KAPPA, JIGAR SERUM #### [facility] ,Protein [Mass/volume] in Serum or Plasmaon 46-60-5040Bwxdnow [Mass/Vol]6.7 g/dL Normal6.4-8.9Mercy hospital springfieldComment on above:Performed By: #### SCAN CBC, LDH, CMP #### [facility] [address] [id number] USAProthrombin time (PT)Ordered By: Christian Carlos on 92-86-6349ZL Coag (PPP) [Time]11.1 sNormal9.0-12.9As[facility] County Medical CenterComment on above:A hematocrit value greater than 55% may lead to inaccurate results in coagulation testing. Patientshaving hematocrit values >55% require a special collection tube for coagulation studies. Please contact the laboratory at [phone] for redraw instructions.Order Comment: STAT FOR CT Result Comment: A hematocrit value greater than 55% may lead to inaccurate results in coagulation testing. Patients having hematocrit values >55% require a special collection tube for coagulation studies. Please contact the laboratory at [phone] for redraw instructions.Performed By: #### SCAN CBC, LDH, CMP #### [facility] [address] [place] [address] USASegmented neutrophils/100 leukocytes in Blood by Manual countOrdered By: Christian Carlos on 50-78-6995Kpglrrvnx neutrophils/100 WBC (Bld)25 %Ryr73-66RyydyktjoAshtabula County Medical CenterComment on above:Performed By: #### SCAN CBC, LDH, CMP #### [facility] [address] [place] [address] USASerum free kappa light chain measurementOrdered By: Christian Carols on 97-76-1963Pkdhrpkuxyovxf light chains.kappa.free (S) [Mass/Vol]16.3 mg/L3.3-19.4FMorrow County Hospitalerum globulin measurement (mass/volume)Ordered By: Christian Carlos on 45-20-6857Epwcuogz (S) [Mass/Vol]2.3 g/dLNormal2.2-3.9[facility] Medical CenterComment on above:Performed By: #### SPE, KAPPA, JIGAR SERUM #### [facility] ,Serum globulin measurement by calculation (mass/volume)Ordered By: Christian Carlos on 13-36-3460Ynxmqzsa (S) [Mass/Vol]2.0 g/dLNoalAshtabula County Medical CenterComment on above:Performed By: #### SCAN CBC, LDH, CMP #### [facility] [address] [place] [address] USASerum immunoglobulin free kappa light chains/immunoglobulin free lambda light chainsOrdered By: Christian Carlos on 20-80-4548Wbktbiypmuxqba light chains.kappa.free/Immunoglobulin light chains.lambda.free (S) [Mass ratio]1.540.26-1.65[facility] County Medical CenterComment on above:Performed at: [employer] [place], [place] [id number] Director: Chad Mccall PhD, Phone: [phone] or plasma IgA measurement (mass/volume)Ordered By: Christian Carlos on 87-29-6853HaU [Mass/Vol]146 mg/lW51-756CpyiaapnuMain Campus Medical Centererum or plasma IgG measurement (mass/volume)Ordered By: Christian Carlos on 02-10-2025 IgG [Mass/Vol]714 mg/uP614-5636HoqrjejznMain Campus Medical Centererum or plasma IgM measurement (mass/volume)Ordered By: Christian Carlos on 08-73-1303HhU [Mass/Vol]24 mg/fX27-662XjijvzuymAshtabula County Medical CenterComment on above:Result confirmed on concentration.Performed at: [employer] [place], [place] [id number] Director: Chad Mccall PhD, Phone: [phone] or plasma albumin measurement (mass/volume)Ordered By: Christian Carlos on 83-88-2901Nroeszm [Mass/Vol]4.0 g/dLNormal2.9-4.4FMartins Ferry HospitalComment on above:Performed By: #### SPE, KAPPA, JIGAR SERUM #### [facility] ,Serum or plasma albumin/globulin mass ratioon 72-80-2118Mgcbxoc/Globulin [Mass ratio]2.4 {ratio}NormalNODE HealthcareComment on above:Performed By: #### SCAN CBC, LDH, CMP #### [facility] [address] [id number] USASerum or plasma albumin/globulin mass ratioOrdered By: Christian Carlos on 56-63-2651Hgvhvlu/Globulin [Mass ratio]1.7 {ratio}Normal 0.7-1.7FMartins Ferry HospitalComment on above:Performed By: #### SPE, KAPPA, JIGAR SERUM #### [facility] ,Serum or plasma alpha 1 globulin measurement by electrophoresis (mass/volume) Ordered By: Christian Carlos on 64-05-5897Nbgaw 1 globulin Elph [Mass/Vol]0.3 g/dL0.0-0.4FMorrow County Hospitalerum or plasma alpha 2 globulin measurement by electrophoresis (mass/volume)Ordered By: Christian Carlos on 25-06-8823Lsmzk 2 globulin Elph [Mass/Vol]0.5 g/dL0.4-1.0Main Campus Medical Centererum or plasma anion gap determinationon 07-58-3333Dkgcq gap [Moles/Vol]9.2 mmol/LNormal6.0-15.0NODE HealthcareComment on above:Performed By: #### SCAN CBC, LDH, CMP #### [facility] [address] [id number] USASerum or plasma beta globulin measurement by electrophoresis (mass/volume)Ordered By: Christian Carlos on 03-61-1287Wuch globulin Elph [Mass/Vol]0.9 g/dL0.7-1.3FMorrow County Hospitalerum or plasma gamma globulin measurement by electrophoresis (mass/volume)Ordered By: Christian Carlos on 89-18-5426Wccls globulin Elph [Mass/Vol]0.7 g/dL0.4-1.8 [facility] Centererum or plasma immunoglobulin free lambda light chains measurement (mass/volume)Ordered By: Christian Carlos on 75-74-7234Atkbksghvlfbht light chains.lambda.free [Mass/Vol]10.6 mg/L5.7-26.3 [facility] Medical Centererum total protein measurementOrdered By: Christian Carlos on 97-68-0461Liythcf [Mass/Vol]6.3 g/dLNormal6.0-8.5FMartins Ferry HospitalComment on above:Performed By: #### SPE, KAPPA, JIGAR SERUM #### [facility] ,Sodium [Moles/volume] in Serum or Plasmaon 88-68-5618Cbyqzt [Moles/Vol]140 mmol/HTlughr598-199OTVV HealthcareComment on above:Performed By: #### SCAN CBC, LDH, CMP #### [facility] [address] [place] [address] USAUrea nitrogen [Mass/volume] in Serum or Plasmaon 33-84-4635Rcst nitrogen [Mass/Vol]22 mg/dLNormal7-25NODE HealthcareComment on above:Performed By: #### SCAN CBC, LDH, CMP #### [facility] [address] [id number] USAaPTT in Platelet poor plasma by Coagulation assayOrdered By: Christian Carlos on 51-03-7332hKTB Coag (PPP) [Time]30.1 s25.1-36.5 [facility] County Medical CenterComment on above:A hematocrit value greater than 55% may lead to inaccurate results in coagulation testing. Patientshaving hematocrit values >55% require a special collection tube for coagulation studies. Please contact the laboratory at [phone] for redraw instructions. FLOWCYTOMETRY [facility] HOSPITALGENOMIC 32-82-4038FFGEKKWNOJDRY [facility] Comment on above:See report. Scanned copy available in EMR.[facility] Alanine aminotransferase [Enzymatic activity/volume] in Serum or PlasmaOrdered By: Christian Carlos on 34-18-9332CAY [Catalytic activity/Vol]30 U/LNormal7-52 [facility] Medical CenterComment on above:Performed By: #### SCAN CBC, LDH, CMP #### [facility] [address] [id number] USAAlbumin [Mass/volume] in Serum or Plasma by Bromocresol green (BCG) dye binding methoOrdered By: Christian Carlos on 94-23-5997Auelukh BCG dye [Mass/Vol]4.4 g/dL3.5-5.7FMartins Ferry HospitalAlkaline phosphatase [Enzymatic activity/volume] in Serum or PlasmaOrdered By: Christian Carlos on 20-76-8854JPG [Catalytic activity/Vol]86 U/XYrioea58-607BnkymphxmAshtabula County Medical CenterComment on above:Performed By: #### SCAN CBC, LDH, CMP #### [facility] [address] [place] [address] USAAspartate aminotransferase [Enzymatic activity/volume] in Serum or PlasmaOrdered By: Christian Carlos on 23-04-0680HYE [Catalytic activity/Vol]33 U/QCuciyo76-95BgmeshgoxAshtabula County Medical CenterComment on above: Performed By: #### SCAN CBC, LDH, CMP #### [facility] [address] [place] [address] USABand form neutrophils/100 leukocytes in Blood by Manual countOrdered By: Christian Carlos on 80-48-7074Nvkh form neutrophils/100 WBC (Bld)2 %Normal0-5FMartins Ferry HospitalComment on above:Performed By: #### SCAN CBC, LDH, CMP #### [place] [address] USABasophils Auto (Bld) [#/Vol]Ordered By: Christian Carlos on 68-53-7970Vmfgokiow (Bld) [#/Vol]N/[facility] Basophils/100 WBC Auto (Bld)Ordered By: Christian Carlos on 01-13-2025 Basophils/100 WBC (Bld)N/[facility] Medical CenterBilirubin.total [Mass/volume] in Serum or PlasmaOrdered By: Christian Carlos on 01-13-2025 Bilirubin [Mass/Vol]1.7 mg/dLHigh0.3-1.0[facility] Medical CenterComment on above:Samples from patients who have taken [...] By: #### SCAN CBC, LDH, CMP #### [place] [address] USACalcium [Mass/volume] in Serum or PlasmaOrdered By: Christian Carlos on 26-09-9667Iauzwij [Mass/Vol]9.0 mg/dLNormal8.6-10.3 [facility] Medical CenterComment on above:Performed By: #### SCAN CBC, LDH, CMP #### [place] [address] USACarbon dioxide, total [Moles/volume] in Serum or Plasma Ordered By: Christian Carlos on 27-95-7613JO4 [Moles/Vol]33.8 mmol/LHigh 21.0-31.0[facility] Medical CenterComment on above:Performed By: #### SCAN CBC, LDH, CMP #### [place] [address] USAChloride [Moles/volume] in Serum or PlasmaOrdered By: Christian Carlos on 48-18-0123Hvqlhjti [Moles/Vol]104 mmol/PGjwuba57-983 [facility] Medical CenterComment on above:Performed By: #### SCAN CBC, LDH, CMP #### [place] [address] USAComprehensive Metabolic Panelon 33-08-3107Wmdcykq [Mass/Vol]4.4 g/dLNormal3.5-5.7The [facility] Carolina Physician GroupComment on above: Performed By: #### SCAN CBC, LDH, CMP #### [place] [address] USACreatinine Clr Calc Yizjgxen22.09NoUNC Health Physician GroupComment on above:Performed By: #### SCAN CBC, LDH, CMP #### [facility] [address] [place] [address] USAGFR/1.73 sq M.predicted MDRD (S/P/Bld) [Vol rate/Area] mL/min/{1.73_m2}NormalThe [facility] Hospitals Of North Carolina Physician GroupComment on above:Performed By: #### SCAN CBC, LDH, CMP #### [facility] [address] [place] [address] USAComprehensive metabolic panelon 58-92-4036Jlppdrz [Mass/Vol]4.4 g/dL3.5 - 5.7 g/dLNOMS HealthcareAlbumin/Globulin [Mass ratio]2.6 {ratio}NOM HealthcareALP [Catalytic activity/Vol]86 U/L34 - 104 U/LNOMS HealthcareALT [Catalytic activity/Vol]30 U/L7 - 52 U/LNOMS HealthcareAnion gap [Moles/Vol]7.3 mmol/L6.0 - 15.0 meq/LNOMS HealthcareAST [Catalytic activity/Vol] 33 U/L13 - 39 U/LNOMS HealthcareBilirubin [Mass/Vol]1.7 mg/dLHigh0.3 - 1.0 mg/dL [facility] HealthcareComment on above:Samples from patients who have taken Naproxen have shown spurious elevation in Total Bilirubin levels. A metabolite of Naproxen, O-desmethylnaproxen, has been shown to interfere with the Jenjoryik-Groleslie method for measuring Total Bilirubin. Calcium [Mass/Vol]9 mg/dL8.6 - 10.3 mg/dLNOMS HealthcareChloride [Moles/Vol]104 mmol/L98 - 107 mmol/LNOMS HealthcareCO2 [Moles/Vol]33.8 mmol/LHigh21.0 - 31.0 mmol/LNOMS HealthcareCreatinine (U) [Mass/Vol]0.95 mg/dL0.70 - 1.30 mg/dLNODE HealthcareCREATININE CLR CALC IFJMUUQU73.09NOMS HealthcareESTIMATED GFRmL/Min NOMS HealthcareGlobulin (S) [Mass/Vol]1.7 g/dLNOMS [...] mmol/LNOMS HealthcareUrea nitrogen [Mass/Vol]14 mg/dL7 - 25 mg/dLNODE Healthcare Creatinine [Mass/volume] in Serum or PlasmaOrdered By: Christian Carlos on 66-10-4246Eletfbavlb [Mass/Vol]0.95 mg/dLNormal0.70-1.30[facility] County Medical CenterComment on above:Performed By: #### SCAN CBC, LDH, CMP #### [place] [address] USADiff and CBCon 57-00-3128Sswtc Platelet Tally1 /100{WBC} NormalThe [facility] Hospitals Of North Carolina Physician GroupComment on above:Performed By: #### SCAN CBC, LDH, CMP #### [place] [address] USAMean Corpuscular HGB Conc35.6 g/oKUxsgos23.5-35.6The [facility] Carolina Physician GroupComment on above:Performed By: #### SCAN CBC, LDH, CMP #### [facility] [address] [id number] USAPlatelet EstimateDecreasedNormalNormCleveland Clinic Weston Hospital Physician GroupComment on above:Performed By: #### SCAN CBC, LDH, CMP #### [place] [address] USAPlatelet MorphologyNormalNormalNormCleveland Clinic Weston Hospital Physician GroupComment on above:Result Comment: PERFORMED BY: [place] [address] PATHOLOGIST CHILD SUPPORT OFFICER SUSAN FREGOSO M.D.Performed By: #### SCAN CBC, LDH, CMP #### [facility] [address] [place] [address] USAReactive Lymphocytes2 %Normal0-12The [facility] Carolina Physician GroupComment on above:Performed By: #### SCAN CBC, LDH, CMP #### [facility] [address] [place] [address] USAEosinophils Auto (Bld) [#/Vol]Ordered By: Christian Carlos on 89-71-6243Bdaqnooscrn (Bld) [#/Vol]N/[facility] CenterEosinophils/100 WBC Auto (Bld)Ordered By: Christian Carlos on 01-13-2025 Eosinophils/100 WBC (Bld)N/[facility] CenterEosinophils/100 leukocytes in Blood by Manual countOrdered By: Christian Carlos on 01-13-2025 Eosinophils/100 WBC (Bld)4 %High133 Mcgee StreetComment on above:Performed By: #### SCAN CBC, LDH, CMP #### [facility] [address] [place] [address] USAErythrocyte distribution width [Ratio] by Automated count Ordered By: Christian Carlos on 85-23-2875Udbdxewoydx distribution width (RBC) [Ratio]14.0 %Axfsbi58.0-14.8[facility] County Medical CenterComment on above: Performed By: #### SCAN CBC, LDH, CMP #### [facility] [address] [place] [address] USAErythrocyte morphology finding [Identifier] in Blood Ordered By: Christian Carlos on 31-97-6521ADC morphology finding Nom (Bld) NormalNormalNormalAshtabula County Medical CenterComment on above:Performed By: #### SCAN CBC, LDH, CMP #### [facility] [address] [place] [address] USAErythrocytes [#/volume] in Blood by Automated countOrdered By: Christian Carlos on 86-68-4558WSV (Bld) [#/Vol]4.15 10*6/uLNormal3.90-5.60 [facility] Medical CenterComment on above:Performed By: #### SCAN CBC, LDH, CMP #### [facility] [address] [place] [address] USAFlowcytometry [employer] 60-59-6355Hgjeuucvsywgb NeogenomicPAM Health Specialty Hospital of Jacksonville Physician GroupComment on above:Result Comment: See report. Scanned copy available in EMR. PERFORMED BY: [place] [address] PATHOLOGIST CHILD SUPPORT OFFICER DANIELLE QUINONES M.D.Performed By: #### FLOW NEOGENOMIC #### [place] [address] USAGiant platelets/100 leukocytes [Ratio] in Blood by Manual countOrdered By: Christian Carlos on 84-42-3197Ibhlg platelets/100 WBC Manual cnt (Bld) [Ratio]1 /100{WBC}[facility] Medical CenterGlucose [Mass/volume] in Serum or PlasmaOrdered By: Christian Carlos on 01-13-2025 Glucose [Mass/Vol]95 mg/jHTmpkyp05-732XribkqzzgAshtabula County Medical CenterComment on above:ADA recommended reference rangeRandom Glucose Reference [...] By: #### SCAN CBC, LDH, CMP #### [facility] [address] [place] [address] USAHematocrit [Volume Fraction] of Blood by Automated count Ordered By: Christian Carlos on 87-16-0608Vouildthro (Bld) [Volume fraction] 38.7 %Low38.8-50.0[facility] County Medical CenterComment on above:Performed By: #### SCAN CBC, LDH, CMP #### [facility] [address] [place] [address] USAHemoglobin [Mass/volume] in BloodOrdered By: Christian Carlos on 18-89-5539Ebymlcgroq (Bld) [Mass/Vol]13.8 g/xSHnmelw50.0-17.0 [facility] CenterComment on above:Performed By: #### SCAN CBC, LDH, CMP #### [facility] [address] [place] [address] USALDH Lactate Dehydrogenaseon 53-66-4060QLE Lactate Symtctgwxbyze781 U/WSckp764-722Tud [facility] Physician GroupComment on above: Result Comment: PERFORMED BY: [facility] [address] [place] [address] PATHOLOGIST CHILD SUPPORT OFFICER SUSAN FREGOSO M.D.Performed By: #### SCAN CBC, LDH, CMP #### [facility] [address] [id number] USALDH Lactate to pyruvate reaction [Catalytic activity/Vol] on 70-74-4873PRX LACTATE SWQZTVFKJBHHS958 U/NBdfp357 - 271 U/[facility] Lactate dehydrogenase [Enzymatic activity/volume] in Serum or Plasma by Lactate to pyOrdered By: Christian Carlos on 61-84-6726BGG Lactate to pyruvate reaction [Catalytic activity/Vol]310 U/IJuoi934-398DswzaalenAshtabula County Medical Center Leukocytes [#/volume] corrected for nucleated erythrocytes in Blood by Automated counOrdered By: Christian Carlos on 34-91-2762EMI corrected for nucl RBC Auto (Bld) [#/Vol]16.9 10*3/uLHigh4.1-10.5FMartins Ferry HospitalLeukocytes [#/volume] in Blood by Automated countOrdered By: Christian Carlos on 70-09-2690HBZ (Bld) [#/Vol]16.9 10*3/uLHigh4.1-10.5FMartins Ferry HospitalComment on above:Performed By: #### SCAN CBC, LDH, CMP #### [facility] [address] [place] [address] USALymphocytes Auto (Bld) [#/Vol]Ordered By: Christian Carlos on 19-58-1677Mdbkxhbwwfz (Bld) [#/Vol]N/[facility] CenterLymphocytes/100 WBC Auto (Bld)Ordered By: Christian Carlos on 01-13-2025 Lymphocytes/100 WBC (Bld)N/[facility] Medical CenterLymphocytes/100 leukocytes in Blood by Manual countOrdered By: Christian Carlos on 01-13-2025 Lymphocytes/100 WBC (Bld)48 %Ucdh15-51VtviqpqclAshtabula County Medical CenterComment on above:Performed By: #### SCAN CBC, LDH, CMP #### [facility] [address] [Entitic mass] by Automated countOrdered By: Christian Carlos on 69-38-9841MYP (RBC) [Entitic mass]33.1 icVibtpj16.5-35.2FMartins Ferry HospitalComment on above:Performed By: #### SCAN CBC, LDH, CMP #### [facility] [address] Auto (RBC) [Mass/Vol]Ordered By: Christian Carlos on 29-34-8585GGNO (RBC) [Mass/Vol]35.6 g/dL32.5-35.6FMartins Ferry HospitalMCV [Entitic volume] by Automated countOrdered By: Christian Carlos on 24-02-7634ZJY (RBC) [Entitic vol]93.1 jGDhtpat08.5-101[facility] Medical CenterComment on above:Performed By: #### SCAN CBC, LDH, CMP #### [facility] [address] [place] [address] USAMonocytes Auto (Bld) [#/Vol]Ordered By: Christian Carlos on 11-25-1000Wfenhwcct (Bld) [#/Vol]N/[facility] Monocytes/100 WBC Auto (Bld)Ordered By: Christian Carlos on 01-13-2025 Monocytes/100 WBC (Bld)N/[facility] Medical CenterMonocytes/100 leukocytes in Blood by Manual countOrdered By: Christian Carlos on 01-13-2025 Monocytes/100 WBC (Bld)6 %Normal2-11[facility] Medical CenterComment on above:Performed By: #### SCAN CBC, LDH, CMP #### [facility] [address] [place] [address] USANeutrophils Auto (Bld) [#/Vol]Ordered By: Christian Carlos on 29-08-1450Juarjbbwprg (Bld) [#/Vol]N/[facility] Medical CenterNeutrophils/100 WBC Auto (Bld)Ordered By: Christian Carlos on 01-13-2025 Neutrophils/100 WBC (Bld)N/[facility] CenterNo Panel Informationon 11-66-5357Bycgekijgvazhy and review of laboratory resultsAbnormMilwaukee County General Hospital– [place][note 2] Panel InformationOrdered By: Christian Carlos on 03-97-1747Ozfjmjxrv GFR (CKD-EPI)> 60.0 mL/MinAshtabula County Medical CenterPharmacy Creatinine Clearance (Chem85.09[facility] Nucleated erythrocytes [Presence] in Blood by Automated countOrdered By: Christian Carlos on 92-36-8660Uqjshgeam RBC Auto Ql (Bld)N/[facility] Medical CenterPlatelet adequacy [Presence] in Blood by Light microscopyOrdered By: Christian Carlos on 82-03-0381Ggdldxykf LM Ql (Bld)DecreasedNormalAshtabula County Medical CenterPlatelet mean volume [Entitic volume] in Blood by Automated countOrdered By: Christian Carlos on 00-14-8881Wonexdtk mean volume (Bld) [Entitic vol]7.3 fLNormal6.6-10.1FMartins Ferry HospitalComment on above:Performed By: #### SCAN CBC, LDH, CMP #### [facility] [address] [place] [address] USAPlatelet morphology finding [Identifier] in BloodOrdered By: Christian Carlos on 00-33-1712Cyopgqpd morphology finding Nom (Bld)Normal NormalAshtabula County Medical CenterPlatelets [#/volume] in Blood by Automated countOrdered By: Christian Carlos on 79-25-1777Mynsjepic (Bld) [#/Vol]136 10*3/cYMos022-600AjyfjkebnAshtabula County Medical CenterComment on above: Performed By: #### SCAN CBC, LDH, CMP #### [facility] [address] [place] [address] USAPotassium [Moles/volume] in Serum or PlasmaOrdered By: Christian Carlos on 37-36-8284Vskxjvljo [Moles/Vol]4.1 mmol/LNormal3.5-5.1 [facility] CenterComment on above:Performed By: #### SCAN CBC, LDH, CMP #### [facility] [address] [place] [address] USAProtein [Mass/volume] in Serum or PlasmaOrdered By: Christian Carlos on 09-39-5794Aiddqxc [Mass/Vol]6.1 g/dLLow6.4-8.9[facility] CenterComment on above:Performed By: #### SCAN CBC, LDH, CMP #### [facility] [address] [place] [address] USASegmented neutrophils/100 leukocytes in Blood by Manual countOrdered By: Christian Carlos on 50-77-2718Fadsitdrv neutrophils/100 WBC (Bld)39 %Eeu98-24WrnpzrkedAshtabula County Medical CenterComment on above:Performed By: #### SCAN CBC, LDH, CMP #### [facility] [address] [place] [address] USASerum globulin measurement by calculation (mass/volume) Ordered By: Christian Carlos on 16-80-1418Nxondpiq (S) [Mass/Vol]1.7 g/dLNormal [facility] CenterComment on above:Performed By: #### SCAN CBC, LDH, CMP #### [facility] [address] [place] [address] USASerum or plasma albumin/globulin mass ratioOrdered By: Christian Carlos on 74-50-1735Bqnvutw/Globulin [Mass ratio]2.6 {ratio}Normal [facility] Medical CenterComment on above:Performed By: #### SCAN CBC, LDH, CMP #### [facility] [address] [place] [id number] USASerum or plasma anion gap determinationOrdered By: Christian Carlos on 05-01-0288Bciyf gap [Moles/Vol]7.3 mmol/LNormal6.0-15.0[facility] CenterComment on above:Performed By: #### SCAN CBC, LDH, CMP #### [facility] [address] [place] [address] USASodium [Moles/volume] in Serum or PlasmaOrdered By: Christian Carlos on 41-73-5603Hoqpdc [Moles/Vol]141 mmol/WIfrkyk143-227 [facility] CenterComment on above:Performed By: #### SCAN CBC, LDH, CMP #### [place] [address] USAUrea nitrogen [Mass/volume] in Serum or PlasmaOrdered By: Christian Carlos on 70-39-5070Oehr nitrogen [Mass/Vol]14 mg/dLNormal7 [facility] CenterComment on above:Performed By: #### SCAN CBC, LDH, CMP #### [place] [id number] USAVariant lymphocytes/100 WBC Manual cnt (Bld)Ordered By: Christian Carlos on 81-73-1804Hoircsl lymphocytes/100 WBC (Bld)2 %0-12[facility] Medical CenterA1C with Estimated Average Gluon 93-53-0083Ylcnvzu [Mass/Vol]94 mg/dLNoUNC Health Physician GroupComment on above:Result Comment: PERFORMED BY: [place] [id number] PATHOLOGIST CHILD SUPPORT OFFICER SUSAN FREGOSO M.D.Performed By: #### SCAN CBC, LDH, CMP #### [place] [id number] USAAlanine aminotransferase [Enzymatic activity/volume] in Serum or PlasmaOrdered By: Russell Gómez on 21-73-4611FZH [Catalytic activity/Vol] Alanine aminotransferase [Enzymatic activity/volume] in Serum or Plasma [facility] Medical CenterALT [Catalytic activity/Vol]28 U/LNormal [facility] CenterComment on above:Performed By: #### LIPID, CHC CBC, EMP PSA, A1C WT eA, CMP #### [facility] [address] [place] [address] USAAlbumin [Mass/volume] in Serum or Plasma by Bromocresol green (BCG) dye binding methoOrdered By: Russell Gómez on 22-06-2212Aopsogh BCG dye [Mass/Vol]Albumin [Mass/volume] in Serum or Plasma by Bromocresol green (BCG) dye binding metho3.5-5.7FMartins Ferry HospitalAlbumin BCG dye [Mass/Vol]4.3 g/dL3.5-5.7FMartins Ferry HospitalAlkaline phosphatase [Enzymatic activity/volume] in Serum or PlasmaOrdered By: Russell Gómez on 15-46-6837CZJ [Catalytic activity/Vol]Alkaline phosphatase [Enzymatic activity/volume] in Serum or Ktwysk15-108FzrvgqbhjAshtabula County Medical CenterALP [Catalytic activity/Vol]85 U/IOmmxdp20-793Wdamqarfd[address] Comment on above:Result Comment: PERFORMED BY: [facility] [address] [place] [address] PATHOLOGIST CHILD SUPPORT OFFICER SUSAN FREGOSO M.D.Performed By: #### LIPID, CHC CBC, EMP PSA, A1C WT eA, CMP #### [facility] [address] [place] [id number] USAAspartate aminotransferase [Enzymatic activity/volume] in Serum or PlasmaOrdered By: Russell Gómez on 60-91-9089WQD [Catalytic activity/Vol] Aspartate aminotransferase [Enzymatic activity/volume] in Serum or Ocopqs32-86 [facility] CenterAST [Catalytic activity/Vol]29 U/MGfvtip61-64 [facility] CenterComment on above:Performed By: #### LIPID, CHC CBC, EMP PSA, A1C WTH eA, CMP #### [facility] [address] [place] [address] USABasophils Auto (Bld) [#/Vol]Ordered By: Russell Gómez on 08-28-8781Bhrpxnpcc (Bld) [#/Vol]Automated basophil count0.0-0.2FMartins Ferry HospitalBasophils [#/volume] in Blood by Automated countOrdered By: Russell Gómez on 00-25-6287Kgyvzrece (Bld) [#/Vol]0.0 10*3/uLNormal0.0-0.2 [facility] CenterComment on above:Result Comment: PERFORMED BY: [place] [address] PATHOLOGIST CHILD SUPPORT OFFICER SUSAN FREGOSO M.D.Performed By: #### SCAN CBC, LDH, CMP #### [place] [address] USABasophils/100 WBC Auto (Bld)Ordered By: Russell Gómez on 26-07-5766Agzuqetkw/100 WBC (Bld)Automated basophil %.[facility] County Medical CenterBasophils/100 leukocytes in Blood by Automated countOrdered By: Russell Gómez on 63-84-5792Nqlxssxyt/100 WBC (Bld)0.2 %Normal.[facility] Medical CenterComment on above:Performed By: #### SCAN CBC, LDH, CMP #### [place] [address] USABilirubin.total [Mass/volume] in Serum or PlasmaOrdered By: Russell Gómez on 13-33-7544Kvqmjjrwf [Mass/Vol]Bilirubin.total [Mass/volume] in Serum or Plasma0.3-1.0[facility] County Medical CenterBilirubin [Mass/Vol]1.0 mg/dLNormal0.3-1.0[facility] CenterComment on above:Performed By: #### LIPID, CHC CBC, EMP PSA, A1C WTH eA, CMP #### [place] [address] USABlood estimated average glucose determination by estimation from glycated hemoglobinOrdered By: Russell Gómez on 28-70-8639Yvaonuo glucose Estimated from glycated hemoglobin (Bld) [Mass/Vol]Glucose mean value [Mass/volume] in Blood Estimated from glycated hemoglobinAshtabula County Medical CenterAverage glucose Estimated from glycated hemoglobin (Bld) [Mass/Vol]94 mg/dLAshtabula County Medical CenterCalcium [Mass/volume] in Serum or PlasmaOrdered By: Russell Gómez on 95-22-1756Hzbvqeq [Mass/Vol]Calcium [Mass/volume] in Serum or Plasma8.6-10.3FMartins Ferry HospitalCalcium [Mass/Vol]9.5 mg/dLNormal8.6-10.3FMartins Ferry HospitalComment on above:Performed By: #### LIPID, CHC CBC, EMP PSA, A1C WTH eA, CMP #### [facility] [address] [place] [address] USACarbon dioxide, total [Moles/volume] in Serum or Plasma Ordered By: Russell Gómez on 84-35-0709PI1 [Moles/Vol]Carbon dioxide, total [Moles/volume] in Serum or FqludgTvvu31.0-31.0[facility] CO2 [Moles/Vol]34.1 mmol/LHigh21.0-31.0[facility] Medical CenterComment on above:Performed By: #### LIPID, CHC CBC, EMP PSA, A1C WTH eA, CMP #### [facility] [address] [place] [address] USAChloride [Moles/volume] in Serum or PlasmaOrdered By: Russell Gómez on 28-32-8150Rztfrohb [Moles/Vol]Chloride [Moles/volume] in Serum or Rnivgv63-147BvuhxggbvAshtabula County Medical CenterChloride [Moles/Vol]104 mmol/L Viwsng82-907Qagfseqan[address] [place], [place] [address]Comment on above:Performed By: #### LIPID, CHC CBC, EMP PSA, A1C WTH eA, CMP #### [facility] [address] [place] [address] USACholesterol [Mass/volume] in Serum or PlasmaOrdered By: Russell Gómez on 82-52-7183Ohsqvjbcuog [Mass/Vol]Cholesterol [Mass/volume] in Serum or Ltobgi636-688NjmtauhivAshtabula County Medical CenterComment on above:Chol less than 200 mg/dl low riskChol 201-239 mg/dl borderline riskChol 240 mg/dl and greater high riskCholesterol [Mass/Vol]169 mg/pVOdvfez177-415NtklumbajAshtabula County Medical CenterComment on above:Chol less than 200 mg/dl low riskChol 201-239 mg/dl borderline riskChol 240 mg/dl and greater high riskResult Comment: Chol less than 200 mg/dl low risk Chol 201-239 mg/dl borderline risk Chol 240 mg/dl and greater high riskPerformed By: #### SCAN CBC, LDH, CMP #### [facility] [address] [place] [address] USACholesterol in HDL [Mass/volume] in Serum or PlasmaOrdered By: Russell Gómez on 92-51-8944Oiwwymicxcq in HDL [Mass/Vol]Serum or plasma high density lipoprotein (HDL) cholesterol yqasuujzydd69-62AkxozkabzAshtabula County Medical CenterComment on above:HDL CHOL ATP-III CLASSIFICATION Cardiovascular RiskHDL > or equal to 60 mg/dL LOWHDL < 40 mg/dL HIGHCholesterol in HDL [Mass/Vol]59 mg/tUIbiiiy53-20IszadwlrrAshtabula County Medical CenterComment on above:HDL CHOL ATP- III CLASSIFICATION Cardiovascular RiskHDL > or equal to 60 mg/dL LOWHDL < 40 mg/dL HIGHResult Comment: HDL CHOL ATP-III CLASSIFICATION Cardiovascular Risk HDL > or equal to 60 mg/dL LOW HDL < 40 mg/dL HIGHPerformed By: #### SCAN CBC, LDH, CMP #### [facility] [address] [place] [address] USACholesterol in LDL Calc [Mass/Vol]Ordered By: Russell Gómez on 27-04-4142Umculuoqdjs in LDL [Mass/Vol]Cholesterol in LDL [Mass/volume] in Serum or Plasma by calculation0Asht[facility]ula County Medical CenterComment on above:LDL ATP III CLASSIFICATIONLDL less than 100 mg/dL OptimalLDL 100-129 mg/dL Near or above dswbdgvKRQ236-715 mg/dL Borderline highLDL 160-189 mg/dL HighLDL greater than 189 mg/dL Very highCholesterol in LDL [Mass/Vol]93 mg/dL0- [facility] County Medical CenterComment on above:LDL ATP III CLASSIFICATIONLDL less than 100 mg/dL OptimalLDL 100-129 mg/dL Near or above epejqflVIG632-729 mg/dL Borderline highLDL 160-189 mg/dL HighLDL greater than 189 mg/dL Very high Cholesterol in VLDL Calc [Mass/Vol]Ordered By: Russell Gómez on 11-30-2024 Cholesterol in VLDL [Mass/Vol]Cholesterol in VLDL [Mass/volume] in Serum or Plasma by calculationAshtabula County Medical CenterCholesterol in VLDL [Mass/Vol]17 mg/dLAshtabula County Medical CenterComplete Blood Count no reflexon 01-05-4173Oeru Corpuscular HGB Conc34.3 g/yKAniqpf63.5-35.6The [facility] Physician GroupComment on above:Performed By: #### SCAN CBC, LDH, CMP #### [facility] [address] [place] [address] USANRBC%0.2 /100{WBC}Normal0-0.5The [facility] Comment on above:Performed By: #### SCAN CBC, LDH, CMP #### [facility] [address] [place] [address] USAComprehensive Metabolic Panelon 42-46-9180Aurdilq [Mass/Vol]4.3 g/dLNormal3.5-5.7The [facility] Physician [facility] SystemComment on above: Performed By: #### LIPID, CHC CBC, EMP PSA, A1C WTH eA, CMP #### [facility] [address] [place] [id number] USAGFR/1.73 sq M.predicted MDRD (S/P/Bld) [Vol rate/Area] mL/min/{1.73_m2}NormalThe [facility] Physician GroupComment on above:Performed By: #### LIPID, CHC CBC, EMP PSA, A1C WT eA, CMP #### [facility] [address] [place] [address] USACreatinine [Mass/volume] in Serum or PlasmaOrdered By: Russell Gómez on 64-57-4021Pajmvlstms [Mass/Vol]Creatinine [Mass/volume] in Serum or Plasma0.70-1.30[facility] Medical CenterCreatinine [Mass/Vol]0.81 mg/dLNormal0.70-1.30[facility] CenterComment on above:Performed By: #### LIPID, CHC CBC, EMP PSA, A1C [facility] eA, CMP #### [facility] [address] [place] [id number] USAEmployee PSA Totalon [id number] Total ([facility] Orders)0.650 ng/mLNormal0.000-4.000The [facility] Physician GroupComment on above:Result Comment: Serial tumor marker results determined by assays using different manufacturers or methods may not be comparable. [facility] business development and method: [employer] DXI, CHEMILUMINESCENT IMMUNOASSAY. PERFORMED BY: [place] [address] PATHOLOGIST CHILD SUPPORT OFFICER SUSAN FREGOSO M.D.Performed By: #### LIPID, CHC CBC, EMP PSA, A1C [facility] eA, CMP #### [facility] [address] [place] [address] USAEosinophils Auto (Bld) [#/Vol]Ordered By: Russell Gómez on 81-45-8242Gpabxhoboln (Bld) [#/Vol]Automated eosinophil count0.0-0.45[facility] Medical CenterEosinophils [#/volume] in Blood by Automated countOrdered By: Russell Gómez on 70-25-3366Yaebuxlpshu (Bld) [#/Vol]0.2 10*3/uLNormal0.0-0.45 [facility] CenterComment on above:Performed By: #### SCAN CBC, LDH, CMP #### [facility] [address] [place] [address] USAEosinophils/100 WBC Auto (Bld)Ordered By: Russell Gómez on 12-87-9668Xjzlrjmbote/100 WBC (Bld)Automated eosinophil %.[facility] Medical CenterEosinophils/100 leukocytes in Blood by Automated countOrdered By: Russell Gómez on 36-91-5628Kpxynafngkr/100 WBC (Bld)1.1 %Normal.[facility] Medical CenterComment on above:Performed By: #### SCAN CBC, LDH, CMP #### [facility] [address] [place] [address] USAErythrocyte distribution width Auto (RBC) [Ratio]Ordered By: Russell Gómez on 19-48-7657Hsuebhjonxp distribution width (RBC) [Ratio] Erythrocyte distribution width [Ratio] by Automated count12.0-14.8[facility] Medical CenterErythrocyte distribution width [Ratio] by Automated count Ordered By: Russell Gómez on 68-04-3832Qyhlknxqeda distribution width (RBC) [Ratio] 13.2 %Rntmxl55.0-14.8[facility] CenterComment on above:Performed By: #### SCAN CBC, LDH, CMP #### [facility] [address] [place] [id number] USAErythrocytes [#/volume] in Blood by Automated countOrdered By: Russell Gómez on 49-73-5218HDV (Bld) [#/Vol]4.67 10*6/uLNormal3.90-5.60 [facility] CenterComment on above:Performed By: #### SCAN CBC, LDH, CMP #### [facility] [address] [place] [id number] USAGlobulin Calc (S) [Mass/Vol]Ordered By: Russell Gómez on 36-46-9283Geiwmwxv (S) [Mass/Vol]Serum globulin measurement by calculation (mass/volume)[facility] CenterGlucose [Mass/volume] in Serum or PlasmaOrdered By: Russell Gómez on 61-56-0220Anosifl [Mass/Vol]Glucose [Mass/volume] in Serum or Uypcko96-823DbjnrrpwrAshtabula County Medical CenterComment on above:ADA recommended reference rangeRandom Glucose Reference Range is dependent on time and content of last meal. Glucose of more than 200 mg/dL in a nonstressed, ambulatory subject supports the diagnosisof Diabetes Mellitus. Glucose [Mass/Vol]91 mg/nMKbraux89-909FmfsddnygAshtabula County Medical CenterComment on above:ADA recommended reference rangeRandom Glucose Reference [...] EMP PSA, A1C WTH eA, CMP #### [facility] [address] [place] [address] USAHematocrit Auto (Bld) [Volume fraction]Ordered By: Russell Gómez on 01-76-6327Naixfbbton (Bld) [Volume fraction]Hematocrit [Volume Fraction] of Blood by Automated count38.8-50.0[facility] Medical CenterHematocrit [Volume Fraction] of Blood by Automated countOrdered By: Russell Gómez on 93-12-6188Xwthjlbdhh (Bld) [Volume fraction]43.3 %Htvtbf90.8-50.0[facility] CenterComment on above:Performed By: #### SCAN CBC, LDH, CMP #### [facility] [address] [place] [address] USAHemoglobin A1c/Hemoglobin.total in BloodOrdered By: Russell Gómez on 11-33-2776BeS4p (Bld) [Mass fraction]Hemoglobin A1c percentage4.3-5.6 [facility] Medical CenterComment on above:Increased risk for diabetes: 5.7 - 6.4diabetes: >6.4glycemic control for adults with diabetes: <7.0HbA1c (Bld) [Mass fraction]4.9 %Normal4.3-5.6FMartins Ferry HospitalComment on above:Increased risk for diabetes: 5.7 - 6.4diabetes: >6.4glycemic control for adults with diabetes: <7.0Result Comment: Increased risk for diabetes: 5.7 - 6.4 diabetes: >6.4 glycemic control for adults with diabetes: <7.0Performed By: #### SCAN CBC, LDH, CMP #### [facility] [address] [place] [address] USAHemoglobin [Mass/volume] in BloodOrdered By: Russell Gómez on 24-45-0476Ktlejbdqwp (Bld) [Mass/Vol]Hemoglobin [Mass/volume] in Blood13.0-17.0 [facility] Medical CenterHemoglobin (Bld) [Mass/Vol]14.9 g/dLNormal 13.0-17.0[facility] CenterComment on above:Performed By: #### SCAN CBC, LDH, CMP #### [facility] [address] [place] [address] USALeukocytes [#/volume] corrected for nucleated erythrocytes in Blood by Automated counOrdered By: Russell Gómez on 25-55-8800FBT corrected for nucl RBC Auto (Bld) [#/Vol]Leukocytes [#/volume] corrected for nucleated erythrocytes in Blood by Automated counHigh4.1-10.5FMartins Ferry HospitalWBC corrected for nucl RBC Auto (Bld) [#/Vol]19.5 10*3/uLHigh4.1-10.5 [facility] CenterLeukocytes [#/volume] in Blood by Automated countOrdered By: Russell Gómez on 35-63-6419GBW (Bld) [#/Vol]19.5 10*3/uLHigh 4.1-10.5FMartins Ferry HospitalComment on above:Performed By: #### SCAN CBC, LDH, CMP #### [facility] [address] [place] [address] USALipid Panelon 16-41-8008NJX Cholesterol,Tvqrijzloo29 mg/dL Normal0-100The [facility] Physician GroupComment on above:Result Comment: LDL ATP III CLASSIFICATION LDL less than 100 mg/dL Optimal LDL 100-129 mg/dL Near or above optimal LDL 130-159 mg/dL Borderline high LDL 160-189 mg/dL High LDL greater than 189 mg/dL Very highPerformed By: #### SCAN CBC, LDH, CMP #### [facility] [address] [place] [address] USATriglyceride w/Aaanjv41 mg/dLNormal0-149The [facility] Physician GroupComment on above:Result Comment: TRIG ATP III CLASSIFICATION TRIG less than 150 mg/dL Normal TRIG 150-199 mg/dL Borderline high TRIG 200-500 mg/dL High TRIG greater than 500 mg/dL Very high Standard traceable to the Center for Disease Conrtrol and Prevention (CDC) test method.Performed By: #### SCAN CBC, LDH, CMP #### [facility] [address] [place] [address] USAVLDL LWOVVSTHMTQ02 mg/dLNoUNC Health Physician GroupComment on above:Performed By: #### SCAN CBC, LDH, CMP #### [facility] [address] [place] [address] USALymphocytes Auto (Bld) [#/Vol]Ordered By: Russell Gómez on 61-46-7467Zsgaiekmmdc (Bld) [#/Vol]Lymphocytes [#/volume] in Blood by Automated countHigh1.00-4.8[facility] Medical CenterLymphocytes [#/volume] in Blood by Automated countOrdered By: Russell Gómez on 98-52-9629Nfuzkrhekrz (Bld) [#/Vol]14.4 10*3/uLHigh1.00-4.[address] [place], [place] [address]Comment on above:Performed By: #### SCAN CBC, LDH, CMP #### [facility] [address] [place] [address] USALymphocytes/100 WBC Auto (Bld)Ordered By: Russell Gómez on 28-43-1225Nmofkwyeryy/100 WBC (Bld)Lymphocytes/100 leukocytes in Blood by Automated count.[facility] Medical CenterLymphocytes/100 leukocytes in Blood by Automated countOrdered By: Russell Gómez on 35-69-4638Cjelplhkblq/100 WBC (Bld)74.0 %Normal.[facility] Medical CenterComment on above:Performed By: #### SCAN CBC, LDH, CMP #### [facility] [address] [place] [id number] [facility] [place] Auto (RBC) [Entitic mass]Ordered By: Russell Gómez on 12-19-9860XJJ (RBC) [Entitic mass]MCH [Entitic mass] by Automated count27.5-35.2 [facility] [Entitic mass] by Automated countOrdered By: Russell Gómez on 87-36-4386NXJ (RBC) [Entitic mass]31.8 psYlcahr65.5-35.2 [facility] CenterComment on above:Performed By: #### SCAN CBC, LDH, CMP #### [facility] [address] [place] [address] USAHC Auto (RBC) [Mass/Vol]Ordered By: Russell Gómez on 15-17-2012FVEB (RBC) [Mass/Vol]MCHC [Mass/volume] by Automated count32.5-35.6 [facility] HospitalHC (RBC) [Mass/Vol]34.3 g/dL32.5-35.6 [facility] CenterMCV Auto (RBC) [Entitic vol]Ordered By: Russell Gómez on 96-98-8259CWR (RBC) [Entitic vol]MCV [Entitic volume] by Automated count 83.5-101[facility] HospitalV [Entitic volume] by Automated count Ordered By: Russell Gómez on 15-70-0817HQU (RBC) [Entitic vol]92.8 tZBmqywm65.5-101 [facility] CenterComment on above:Performed By: #### SCAN CBC, LDH, CMP #### [facility] [address] [place] [address] USAMonocytes Auto (Bld) [#/Vol]Ordered By: Russell Gómez on 13-08-6021Hkibgfjuc (Bld) [#/Vol]Automated blood monocyte count0.0-0.8[facility] CenterMonocytes [#/volume] in Blood by Automated countOrdered By: Russell Gómez on 99-04-7669Jfhlbavtl (Bld) [#/Vol]0.4 10*3/uLNormal0.0-0.8 [facility] CenterComment on above:Performed By: #### SCAN CBC, LDH, CMP #### [facility] [address] [place] [address] USAMonocytes/100 WBC Auto (Bld)Ordered By: Russell Gómez on 40-54-2323Qhzdnkpgn/100 WBC (Bld)Automated monocyte %.[facility] CenterMonocytes/100 leukocytes in Blood by Automated countOrdered By: Russell Gómez on 09-13-8172Jazwqquwv/100 WBC (Bld)2.3 %Normal.[facility] CenterComment on above:Performed By: #### SCAN CBC, LDH, CMP #### [facility] [address] [place] [id number] USANeutrophils Auto (Bld) [#/Vol]Ordered By: Russell Gómez on 69-43-4522Bzhmefplvcv (Bld) [#/Vol]Neutrophils [#/volume] in Blood by Automated count1.8-7.7FMartins Ferry HospitalNeutrophils [#/volume] in Blood by Automated countOrdered By: Russell Gómez on 59-54-7588Nmnylladrzu (Bld) [#/Vol]4.4 10*3/uLNormal1.8-7.7FMartins Ferry HospitalComment on above:Performed By: #### SCAN CBC, LDH, CMP #### [facility] [address] [place] [address] USANeutrophils/100 WBC Auto (Bld)Ordered By: Russell Gómez on 22-21-1515Mhysavoqepe/100 WBC (Bld)Automated neutrophil %.[facility] CenterNeutrophils/100 leukocytes in Blood by Automated countOrdered By: Russell Gómez on 45-60-6147Yyynhvmgqfu/100 WBC (Bld)22.4 %Normal.[facility] Medical CenterComment on above:Performed By: #### SCAN CBC, LDH, CMP #### [facility] [address] [place], [place] [id number] USANo Panel InformationOrdered By: Russell Gómez on 11-30-2024 Estimated GFR (CKD-EPI)> 60.0 mL/MinAshtabula County Medical CenterPharmacy Creatinine Clearance (ChemN/[facility] CenterNucleated erythrocytes [Presence] in Blood by Automated countOrdered By: Russell Gómez on 66-56-1620Vfijevbjx RBC Auto Ql (Bld)Nucleated erythrocytes [Presence] in Blood by Automated count0-0.5FMartins Ferry HospitalNucleated RBC Auto Ql (Bld)0.2 /100{WBC}0-0.5FMartins Ferry HospitalPlatelet mean volume Auto (Bld) [Entitic vol]Ordered By: Russell Gómez on 92-61-8645Ujqmsvnj mean volume (Bld) [Entitic vol]Platelet mean volume [Entitic volume] in Blood by Automated count6.6-10.1FMartins Ferry HospitalPlatelet mean volume [Entitic volume] in Blood by Automated countOrdered By: Russell Gómez on 90-99-6219Fzgviegy mean volume (Bld) [Entitic vol]8.6 fLNormal6.6-10.1FMartins Ferry HospitalComment on above:Performed By: #### SCAN CBC, LDH, CMP #### [facility] [address] [place] [address] USAPlatelets Auto (Bld) [#/Vol]Ordered By: Russell Gómez on 57-33-2599Mjygwzdce (Bld) [#/Vol]Platelets [#/volume] in Blood by Automated oucaaVqh282-013LvowdaljjAshtabula County Medical CenterPlatelets [#/volume] in Blood by Automated countOrdered By: Russell Gómez on 07-37-5743Owohgunce (Bld) [#/Vol]121 10*3/hCAyf407-534Ldyxylxd[address] [place], [place] [address]Comment on above:Performed By: #### SCAN CBC, LDH, CMP #### [facility] [address] [place] [id number] USAPotassium [Moles/volume] in Serum or PlasmaOrdered By: Russell Gómez on 01-01-1298Hldgjfaen [Moles/Vol]Potassium [Moles/volume] in Serum or Plasma3.5-5.1FMartins Ferry HospitalPotassium [Moles/Vol]3.8 mmol/L Normal3.5-5.1FMartins Ferry HospitalComment on above:Performed By: #### LIPID, CHC CBC, EMP PSA, A1C WTH eA, CMP #### [facility] [address] [place] [id number] USAProstate specific Ag [Mass/volume] in Serum or Plasma Ordered By: Russell Gómez on 71-05-3318Gfljchml specific Ag [Mass/Vol]Prostate specific Ag [Mass/volume] in Serum or Plasma0.000-4.000[facility] CenterComment on above:Serial tumor marker results determined by assays using different manufacturers or methods may not be comparable.[facility] business development and method:[employer] DXI, CHEMILUMINESCENT IMMUNO ASSAY.Prostate specific Ag [Mass/Vol]0.650 ng/mL0.000-4.000[facility] CenterComment on above:Serial tumor marker results determined by assays using different manufacturers or methods may not be comparable.[facility] business development and method:[employer] DXI, CHEMILUMINESCENT IMMUNO ASSAY.Protein [Mass/volume] in Serum or PlasmaOrdered By: Russell Gómez on 91-44-9383Edkpeyp [Mass/Vol]Protein [Mass/volume] in Serum or PlasmaLow6.4-8.9 [facility] CenterProtein [Mass/Vol]6.3 g/dLLow6.4-8.9[facility] CenterComment on above:Performed By: #### LIPID, CHC CBC, EMP PSA, A1C WT eA, CMP #### [facility] [address] [place] [id number] USARBC Auto (Bld) [#/Vol]Ordered By: Russell Gómez on 11-30-2024 RBC (Bld) [#/Vol]Erythrocytes [#/volume] in Blood by Automated count3.90-5.60 [facility] Centererum globulin measurement by calculation (mass/volume)Ordered By: Russell Gómez on 95-52-3589Epkytbej (S) [Mass/Vol]2.0 g/dL [facility] HospitalComment on above:Performed By: #### LIPID, CHC CBC, EMP PSA, A1C WTH eA, CMP #### [facility] [address] [place] [id number] USASerum or plasma albumin/globulin mass ratioOrdered By: Russell Gómez on 29-50-5913Qitzcdo/Globulin [Mass ratio]Serum or plasma albumin/globulin mass ratioAshtabula County Medical CenterAlbumin/Globulin [Mass ratio]2.2 {ratio}[facility] HospitalComment on above: Performed By: #### LIPID, CHC CBC, EMP PSA, A1C WT eA, CMP #### [facility] [address] [place] [address] USASerum or plasma anion gap determinationOrdered By: Russell Gómez on 77-75-8506Uitoe gap [Moles/Vol]Serum or plasma anion gap determination 6.0-15.0[facility] Medical CenterAnion gap [Moles/Vol]7.7 mmol/LNormal 6.0-15.0[facility] CenterComment on above:Performed By: #### LIPID, CHC CBC, EMP PSA, A1C WTH eA, CMP #### [facility] [address] [place] [address] USASerum or plasma total cholesterol/high density lipoprotein (HDL) cholesterol mass ratOrdered By: Russell Gómez on 11-30-2024 Cholesterol.total/Cholesterol in HDL [Mass ratio]Serum or plasma total cholesterol/high density lipoprotein (HDL) cholesterol mass rat<5.0[facility] CenterCholesterol.total/Cholesterol in HDL [Mass ratio]2.9 {ratio}Normal<5.0[facility] CenterComment on above:Result Comment: PERFORMED BY: [place] [address] PATHOLOGIST CHILD SUPPORT OFFICER SUSAN FREGOSO M.D.Performed By: #### SCAN CBC, LDH, CMP #### [facility] [address] [place] [address] USASodium [Moles/volume] in Serum or PlasmaOrdered By: Russell Gómez on 15-96-5824Bundcf [Moles/Vol]Sodium [Moles/volume] in Serum or Plasma 136-145[facility] Medical Centerodium [Moles/Vol]142 mmol/LNormal 136-145[facility] CenterComment on above:Performed By: #### LIPID, CHC CBC, EMP PSA, A1C WTH eA, CMP #### [facility] [address] [place] [id number] USATriglyceride [Mass/volume] in Serum or PlasmaOrdered By: Russell Gómez on 47-51-2401Izlynalvsqau [Mass/Vol]Triglyceride [Mass/volume] in Serum or Plasma0-149[facility] CenterComment on above:TRIG ATP III CLASSIFICATIONTRIG less than 150 mg/dL NormalTRIG 150-199 mg/dL Borderline highTRIG 200-500 mg/dL High TRIG greater than 500 mg/dL Very highStandard traceable to the Center for Disease Conrtrol and Prevention (CDC) test method. Triglyceride [Mass/Vol]86 mg/dL0-149[facility] CenterComment on above:TRIG ATP III CLASSIFICATIONTRIG less than 150 mg/dL NormalTRIG 150-199 mg/dL Borderline highTRIG 200-500 mg/dL High TRIG greater than 500 mg/dL Very highStandard traceable to the Center for Disease Conrtrol and Prevention (CDC) test method.Urea nitrogen [Mass/volume] in Serum or PlasmaOrdered By: Russell Gómez on 87-41-0902Byqb nitrogen [Mass/Vol]Urea nitrogen [Mass/volume] in Serum or Plasma03-18[facility] Medical CenterUrea nitrogen [Mass/Vol]15 mg/dL Normal-[facility] CenterComment on above:Performed By: #### LIPID, CHC CBC, EMP PSA, A1C WTH eA, CMP #### [facility] [address] [place] [address] USAWBC Auto (Bld) [#/Vol]Ordered By: Russell Gómez on 11-30-2024 WBC (Bld) [#/Vol]Leukocytes [#/volume] in Blood by Automated countHigh4.1-10.5 [facility] CenterAlanine aminotransferase [Enzymatic activity/volume] in Serum or PlasmaOrdered By: Irene Solares on 22-18-6572TGW [Catalytic activity/Vol]Alanine aminotransferase [Enzymatic activity/volume] in Serum or PlasmaAshtabula County Medical CenterAlbumin [Mass/volume] in Serum or Plasma by Bromocresol green (BCG) dye binding methoOrdered By: Irene Solares on 51-16-7447Ejsuyoc BCG dye [Mass/Vol]Albumin [Mass/volume] in Serum or Plasma by Bromocresol green (BCG) dye binding metho3.5-5.7FMartins Ferry HospitalAlkaline phosphatase [Enzymatic activity/volume] in Serum or PlasmaOrdered By: Irene Solares on 12-74-3636CAA [Catalytic activity/Vol] Alkaline phosphatase [Enzymatic activity/volume] in Serum or Ozrstb41-937 [facility] CenterAspartate aminotransferase [Enzymatic activity/volume] in Serum or PlasmaOrdered By: Irene Solares on 65-91-4124XMY [Catalytic activity/Vol]Aspartate aminotransferase [Enzymatic activity/volume] in Serum or Pfsnkj21-80RoaqrekqpAshtabula County Medical CenterBasophils Auto (Bld) [#/Vol]Ordered By: Irene Solares on 45-63-1788Nxiqurdjv (Bld) [#/Vol]Automated basophil count0.0-0.2FMartins Ferry HospitalBasophils/100 WBC Auto (Bld)Ordered By: Irene Solares on 33-75-0745Ebbgrqhss/100 WBC (Bld)Automated basophil %.[facility] Medical CenterBilirubin.total [Mass/volume] in Serum or PlasmaOrdered By: Irene Solares on 33-83-6374Vqrjjzjme [Mass/Vol] Bilirubin.total [Mass/volume] in Serum or PlasmaHigh0.3-1.0[facility] CenterCalcium [Mass/volume] in Serum or PlasmaOrdered By: Irene Solares on 69-23-1606Uhazkpp [Mass/Vol]Calcium [Mass/volume] in Serum or Plasma8.6-10.3 [facility] CenterCarbon dioxide, total [Moles/volume] in Serum or PlasmaOrdered By: Irene Solares on 59-75-2874CO6 [Moles/Vol]Carbon dioxide, total [Moles/volume] in Serum or DbjollZrfs21.0-31.0[facility] CenterChloride [Moles/volume] in Serum or PlasmaOrdered By: Irene Solares on 14-48-8415Hwmhuddh [Moles/Vol]Chloride [Moles/volume] in Serum or Hmdjqp70-780 [facility] CenterComprehensive Metabolic Panelon 11-12-2024 Albumin [Mass/Vol]4.4 g/dLNormal3.5-5.7The [facility] Physician GroupComment on above:Performed By: #### SCAN CBC, LDH, CMP #### [place] [address] USAAlbumin/Globulin [Mass ratio]2.3 {ratio}NormalThe [facility] Carolina Physician GroupComment on above:Performed By: #### SCAN CBC, LDH, CMP #### [facility] [address] [place] [address] USAALP [Catalytic activity/Vol]89 U/GJcoxhd26-746Ayo [facility] Physician GroupComment on above:Performed By: #### SCAN CBC, LDH, CMP #### [facility] [address] [place] [address] USAALT [Catalytic activity/Vol]28 U/LNormal7-52The [facility] Physician GroupComment on above:Performed By: #### SCAN CBC, LDH, CMP #### [facility] [address] [place] [address] USAAnion gap [Moles/Vol]8.2 mmol/LNormal6.0-15.0The [facility] Physician GroupComment on above:Performed By: #### SCAN CBC, LDH, CMP #### [facility] [address] [place] [address] USAAST [Catalytic activity/Vol]27 U/GXirvtn67-27Gle [facility] Physician GroupComment on above:Performed By: #### SCAN CBC, LDH, CMP #### [facility] [address] [place] [address] USABilirubin [Mass/Vol]1.1 mg/dLHigh0.3-1.0The [facility] Physician GroupComment on above:Performed By: #### SCAN CBC, LDH, CMP #### [facility] [address] [place] [address] USACalcium [Mass/Vol]8.8 mg/dLNormal8.6-10.3The [facility] Physician GroupComment on above:Performed By: #### SCAN CBC, LDH, CMP #### [facility] [address] [place] [address] USAChloride [Moles/Vol]106 mmol/SEpukoj64-599Map [facility] Physician GroupComment on above:Performed By: #### SCAN CBC, LDH, CMP #### [facility] [address] [place] [address] USACO2 [Moles/Vol]31.9 mmol/LHigh21.0-31.0The [facility] Physician GroupComment on above:Performed By: #### SCAN CBC, LDH, CMP #### [facility] [address] [place] [address] USACreatinine [Mass/Vol]0.83 mg/dLNormal0.70-1.30The [facility] Physician GroupComment on above:Performed By: #### SCAN CBC, LDH, CMP #### [facility] [address] [place] [address] USACreatinine Clr Calc Thervcvq57.39NormCleveland Clinic Weston Hospital Physician GroupComment on above:Performed By: #### SCAN CBC, LDH, CMP #### [facility] [address] [place] [address] USAGFR/1.73 sq M.predicted MDRD (S/P/Bld) [Vol rate/Area] mL/min/{1.73_m2}NormalThe [facility] Physician GroupComment on above:Performed By: #### SCAN CBC, LDH, CMP #### [facility] [address] [place] [address] USAGlobulin (S) [Mass/Vol]1.9 g/dLNoSuburban Community Hospital & Brentwood Hospitale [facility] Physician GroupComment on above:Performed By: #### SCAN CBC, LDH, CMP #### [facility] [address] [place] [address] USAGlucose [Mass/Vol]93 mg/tJLtjzsj52-123Dbj [facility] Physician GroupComment on above:Result Comment: Random Glucose Reference Range is dependent on time and content of last meal. Glucose of more than 200 mg/dL in a nonstressed, ambulatory subject supports the diagnosis of Diabetes Mellitus. ADA recommended reference rangePerformed By: #### SCAN CBC, LDH, CMP #### [facility] [address] [place] [address] USAPotassium [Moles/Vol]4.1 mmol/LNormal3.5-5.1The [facility] Physician GroupComment on above:Performed By: #### SCAN CBC, LDH, CMP #### [facility] [address] [place] [address] USAProtein [Mass/Vol]6.3 g/dLLow6.4-8.9The [facility] Physician GroupComment on above:Performed By: #### SCAN CBC, LDH, CMP #### [facility] [address] [place] [address] USASodium [Moles/Vol]142 mmol/MPkeyoe348-536Gnt [facility] Physician [facility] SystemComment on above:Performed By: #### SCAN CBC, LDH, CMP #### [facility] [address] [place] [address] USAUrea nitrogen [Mass/Vol]17 mg/dLNormal7-e [facility] Physician GroupComment on above:Performed By: #### SCAN CBC, LDH, CMP #### [facility] [address] [place] [address] USACreatinine [Mass/volume] in Serum or PlasmaOrdered By: Irene Solares on 21-93-9048Tozrleyqhw [Mass/Vol]Creatinine [Mass/volume] in Serum or Plasma0.70-1.30[facility] CenterEosinophils Auto (Bld) [#/Vol]Ordered By: Irene Solares on 67-57-8122Ucvyonmofao (Bld) [#/Vol]Automated eosinophil count0.0-0.45[facility] CenterEosinophils/100 WBC Auto (Bld)Ordered By: Irene Solares on 75-69-8843Swatveizyke/100 WBC (Bld) Automated eosinophil %.[facility] CenterErythrocyte distribution width Auto (RBC) [Ratio]Ordered By: Irene Solares on 54-62-3158Qgablecifib distribution width (RBC) [Ratio]Erythrocyte distribution width [Ratio] by Automated count12.0-14.8[facility] CenterErythrocyte morphology finding [Identifier] in BloodOrdered By: Irene Solares on 85-39-0782CYX morphology finding Nom (Bld)RBC morphologyNormalAshtabula County Medical CenterGlobulin Calc (S) [Mass/Vol]Ordered By: Irene Solares on 11-12-2024 Globulin (S) [Mass/Vol]Serum globulin measurement by calculation (mass/volume) [facility] CenterGlucose [Mass/volume] in Serum or PlasmaOrdered By: Irene Solares on 65-18-8684Wijqcvv [Mass/Vol]Glucose [Mass/volume] in Serum or Igndcw66-983WzrgzwiquAshtabula County Medical CenterComment on above:ADA recommended reference rangeRandom Glucose Reference Range is dependent on time and content of last meal. Glucose of more than 200 mg/dL in a nonstressed, ambulatory subject supports the diagnosisof Diabetes Mellitus.Hematocrit Auto (Bld) [Volume fraction]Ordered By: Irene Solares on 58-33-9838Apqjisblii (Bld) [Volume fraction]Hematocrit [Volume Fraction] of Blood by Automated count 38.8-50.0[facility] CenterHemoglobin [Mass/volume] in Blood Ordered By: Irene Solares on 00-88-3970Fviuxblypj (Bld) [Mass/Vol]Hemoglobin [Mass/volume] in Blood13.0-17.0[facility] Medical CenterLDH Lactate Dehydrogenaseon 90-03-7086XMU Lactate Vdbdwhnfbpbtn141 U/VNspcps277-382Xiq [facility] Physician GroupComment on above:Result Comment: PERFORMED BY: [place] [address] PATHOLOGIST CHILD SUPPORT OFFICER SUSAN FREGOSO M.D.Performed By: #### SCAN CBC, LDH, CMP #### [place] [address] USALactate dehydrogenase [Enzymatic activity/volume] in Serum or Plasma by Lactate to pyOrdered By: Irene Solares on 98-26-1652TOS Lactate to pyruvate reaction [Catalytic activity/Vol]Lactate dehydrogenase [Enzymatic activity/volume] in Serum or Plasma by Lactate to nv435-711UtdabbpvvAshtabula County Medical CenterLeukocytes [#/volume] corrected for nucleated erythrocytes in Blood by Automated counOrdered By: Irene Solares on 49-50-6258IVU corrected for nucl RBC Auto (Bld) [#/Vol]Leukocytes [#/volume] corrected for nucleated erythrocytes in Blood by Automated counHigh4.1-10.5FMartins Ferry HospitalLymphocytes Auto (Bld) [#/Vol]Ordered By: Irene Solares on 11-12-2024 Lymphocytes (Bld) [#/Vol]Lymphocytes [#/volume] in Blood by Automated countHigh 1.00-4.8[facility] CenterLymphocytes/100 WBC Auto (Bld)Ordered By: Irene Solares on 47-66-2984Iuwappmwldw/100 WBC (Bld)Lymphocytes/100 leukocytes in Blood by Automated count.[facility] CenterMCH Auto (RBC) [Entitic mass]Ordered By: Irene Solares on 77-22-5088MTM (RBC) [Entitic mass]MCH [Entitic mass] by Automated count27.5-35.2FMartins Ferry HospitalMCHC Auto (RBC) [Mass/Vol]Ordered By: Irene Solares on 51-53-4873RUEN (RBC) [Mass/Vol]MCHC [Mass/volume] by Automated count32.5-35.6FMartins Ferry HospitalMCV Auto (RBC) [Entitic vol]Ordered By: Irene Solares on 87-80-8884KIK (RBC) [Entitic vol]MCV [Entitic volume] by Automated count83.5-101 [facility] CenterMonocytes Auto (Bld) [#/Vol]Ordered By: Irene Solares on 64-77-5593Qhxjlsxtr (Bld) [#/Vol]Automated blood monocyte count 0.0-0.8[facility] CenterMonocytes/100 WBC Auto (Bld)Ordered By: Irene Solares on 83-70-3945Ihkjvqsce/100 WBC (Bld)Automated monocyte %.[facility] CenterNeutrophils Auto (Bld) [#/Vol]Ordered By: Irene Solares on 00-38-1421Mmihlzxczez (Bld) [#/Vol]Neutrophils [#/volume] in Blood by Automated count1.8-7.7FMartins Ferry HospitalNeutrophils/100 WBC Auto (Bld)Ordered By: Irene Solares on 13-32-6699Tdplvdaoodg/100 WBC (Bld)Automated neutrophil %.[facility] CenterNo Panel InformationOrdered By: Irene Solares on 43-52-7127Eobidmwju GFR (CKD-EPI)> 60.0 mL/MinAshtabula County Medical CenterPharmacy Creatinine Clearance (Chem97.39[facility] CenterNucleated erythrocytes [Presence] in Blood by Automated countOrdered By: Irene Solares on 77-45-2546Ozhzszoqu RBC Auto Ql (Bld)Nucleated erythrocytes [Presence] in Blood by Automated count0-0.5FMartins Ferry HospitalPlatelet adequacy [Presence] in Blood by Light microscopyOrdered By: Irene Solares on 24-00-8686Nkmtahlcr LM Ql (Bld)Platelet adequacy [Presence] in Blood by Light microscopyNormMain Campus Medical CenterPlatelet mean volume Auto (Bld) [Entitic vol]Ordered By: Irene Solares on 11-12-2024 Platelet mean volume (Bld) [Entitic vol]Platelet mean volume [Entitic volume] in Blood by Automated count6.6-10.1FMartins Ferry HospitalPlatelet morphology finding [Identifier] in BloodOrdered By: Irene Solares on 11-12-2024 Platelet morphology finding Nom (Bld)Platelet morphology finding [Identifier] in BloodNoRiverview Health InstitutePlatelets Auto (Bld) [#/Vol]Ordered By: Irene Solares on 17-76-8474Jxhqxabti (Bld) [#/Vol]Platelets [#/volume] in Blood by Automated tnpikCij728-631DjzbywyvjAshtabula County Medical CenterPotassium [Moles/volume] in Serum or PlasmaOrdered By: Irene Solares on 11-12-2024 Potassium [Moles/Vol]Potassium [Moles/volume] in Serum or Plasma3.5-5.1FMartins Ferry HospitalProtein [Mass/volume] in Serum or PlasmaOrdered By: Irene Solares on 83-23-7671Whwkvnb [Mass/Vol]Protein [Mass/volume] in Serum or PlasmaLow6.4-8.9[facility] Medical CenterRBC Auto (Bld) [#/Vol]Ordered By: Irene Solares on 37-93-4074UCV (Bld) [#/Vol]Erythrocytes [#/volume] in Blood by Automated count3.90-5.60Main Campus Medical Centercan and CBCon 88-83-5792Lehtsupcy (Bld) [#/Vol]0.1 10*3/uLNormal0.0-0.2The [facility] Physician GroupComment on above:Performed By: #### SCAN CBC, LDH, CMP #### [place] [address] USABasophils/100 WBC (Bld)0.4 %Normal.The [facility] Physician GroupComment on above:Performed By: #### SCAN CBC, LDH, CMP #### [place] [address] USAEosinophils (Bld) [#/Vol]0.2 10*3/uLNormal0.0-0.45The [facility] Physician GroupComment on above:Performed By: #### SCAN CBC, LDH, CMP #### [place] [address] USAEosinophils/100 WBC (Bld)1.0 %Normal.The [facility] Physician GroupComment on above:Performed By: #### SCAN CBC, LDH, CMP #### [place] [address] USAErythrocyte distribution width (RBC) [Ratio]12.9 %Normal 12.0-14.8The [facility] Physician GroupComment on above:Performed By: #### SCAN CBC, LDH, CMP #### [place] [address] USAHematocrit (Bld) [Volume fraction]41.8 %Urzqmj08.8-50.0The [facility] Physician GroupComment on above:Performed By: #### SCAN CBC, LDH, CMP #### [place] [address] USAHemoglobin (Bld) [Mass/Vol]14.7 g/cQRocsiv71.0-17.0The [facility] Physician GroupComment on above:Performed By: #### SCAN CBC, LDH, CMP #### [place] [address] USALymphocytes (Bld) [#/Vol]13.2 10*3/uLHigh1.00-4.8The [facility] Physician GroupComment on above:Performed By: #### SCAN CBC, LDH, CMP #### [place] [address] USALymphocytes/100 WBC (Bld)75.9 %Normal.The [facility] Physician GroupComment on above:Performed By: #### SCAN CBC, LDH, CMP #### [address]H (RBC) [Entitic mass]32.2 rxDufcno71.5-35.2The [facility] Physician GroupComment on above:Performed By: #### SCAN CBC, LDH, CMP #### [place] [address] USAV (RBC) [Entitic vol]91.7 dHFwvoor09.5-101The [facility] Physician GroupComment on above:Performed By: #### SCAN CBC, LDH, CMP #### [place] [address] USAMean Corpuscular HGB Conc35.1 g/qOIgurgx49.5-35.6The [facility] Physician GroupComment on above:Performed By: #### SCAN CBC, LDH, CMP #### [place] [address] USAMonocytes (Bld) [#/Vol]0.4 10*3/uLNormal0.0-0.8The [facility] Physician GroupComment on above:Performed By: #### SCAN CBC, LDH, CMP #### [place] [address] USAMonocytes/100 WBC (Bld)2.1 %Normal.The [facility] Physician GroupComment on above:Performed By: #### SCAN CBC, LDH, CMP #### [place] [address] USANeutrophils (Bld) [#/Vol]3.6 10*3/uLNormal1.8-7.7The [facility] Physician GroupComment on above:Performed By: #### SCAN CBC, LDH, CMP #### [place] [address] USANeutrophils/100 WBC (Bld)20.6 %Normal.The [facility] Physician GroupComment on above:Performed By: #### SCAN CBC, LDH, CMP #### [place] [address] USANRBC%0.2 /100{WBC}Normal0-0.5The [facility] Group Comment on above:Performed By: #### SCAN CBC, LDH, CMP #### [place] [address] USAPlatelet EstimateDecreasedNormalNoUNC Health Physician GroupComment on above:Performed By: #### SCAN CBC, LDH, CMP #### [place] [address] USAPlatelet mean volume (Bld) [Entitic vol]7.9 fLNormal 6.6-10.1The [facility] Physician GroupComment on above:Performed By: #### SCAN CBC, LDH, CMP #### [place] [address] USAPlatelet MorphologyNormalNormalPAM Health [facility]ty [facility] Physician GroupComment on above:Result Comment: PERFORMED BY: [place] [address] PATHOLOGIST CHILD SUPPORT OFFICER SUSAN FREGOSO M.D.Performed By: #### SCAN CBC, LDH, CMP #### [place] [address] USAPlatelets (Bld) [#/Vol]136 10*3/wRChy630-568Dcg [facility] Physician GroupComment on above:Performed By: #### SCAN CBC, LDH, CMP #### [place] [address] USARBC (Bld) [#/Vol]4.56 10*6/uLNormal3.90-5.60The [facility] Physician GroupComment on above:Performed By: #### SCAN CBC, LDH, CMP #### [place] [address] USARBC morphology finding Nom (Bld)NormalNormalNormCleveland Clinic Weston Hospital Physician GroupComment on above:Performed By: #### SCAN CBC, LDH, CMP #### [facility] [address] [place] [address] USAWBC (Bld) [#/Vol]17.4 10*3/uLHigh4.1-10.5The [facility] Physician GroupComment on above:Performed By: #### SCAN CBC, LDH, CMP #### [facility] [address] [place] [id number] USASerum or plasma albumin/globulin mass ratioOrdered By: Irene Solares on 86-10-3002Biyzkda/Globulin [Mass ratio]Serum or plasma albumin/globulin mass ratioMain Campus Medical Centererum or plasma anion gap determinationOrdered By: Irene Solares on 04-83-8036Okrde gap [Moles/Vol]Serum or plasma anion gap determination6.0-15.0Main Campus Medical Centerodium [Moles/volume] in Serum or PlasmaOrdered By: Irene Solares on 35-76-3501Nedcya [Moles/Vol]Sodium [Moles/volume] in Serum or Bijjpe501-624 [facility] CenterUrea nitrogen [Mass/volume] in Serum or Plasma Ordered By: Irene Solares on 61-98-4728Nycd nitrogen [Mass/Vol]Urea nitrogen [Mass/volume] in Serum or Plasma7-25[facility] CenterWBC Auto (Bld) [#/Vol]Ordered By: Irene Solares on 42-87-2551EBR (Bld) [#/Vol]Leukocytes [#/volume] in Blood by Automated countHigh4.1-10.5FMartins Ferry HospitalXR Hand - left 3 Viewson 78-71-4948Ibmiili Result: Three views of the left hand(s), PA/lateral/oblique, taken today and saved to the permanent medical record. Fracture distal phalanx middle finger well healed with advanced DIP joint arthritis.[facility] HospitalXR Knee - right 3 Viewson 98-34-8684Yiufoqi Result: Three views, bilateral PA weight-bearing, sunrise, lateral of the right knee(s) taken today and saved to the permanent medical record are reviewed. Mild medial compartment joint space narrowing. No acute osseous abnormalities.[facility] Panel Informationon 09-30-2024 Aracely De León, ARRT 10/02/2024 9:51 PM L Inj/Asp: R knee on 09/30/2024 4:29 PM Indications: pain Details: 25 G needle, lateral approach Medications: 1.5 mg betamethasone acetate-betamethasone sodium phosphate 6 (3-3) MG/ML Consent was given by the patient. [facility] HealthcareXR Hand - left 3 Viewson 87-31-1448Juujtwfqv Study observation (narrative)[facility]XR Knee - right 3 Viewson 09-30-2024 Radiology Study observation (narrative)[facility] springfieldCNOVon 89-24-6581KDKJ Office Visit (CARDAV) DARIUS VALERA ([id number]) 1960 M Date Time Provider Department 09/21/24 4:30 PM TONY ARMSTRONG During your visit today, we recorded the following information about you: Blood pressure Weight Height 142/82 93 kg 1.829 m Tony Armstrong PA-C 09/21/2024 5:03 PM Signed [facility] [place] [facility]y Zepeda Department of Cardiovascular Medicine SECTION [...] rare (<1.0%). Isolated VEs were occasional (1.4%, [address]), VE Couplets were rare (<1.0%, 56), and [...] months CONTACT INFORMATION: Tony Armstrong PA-C Cardiology [id number] [facility] [address] Dept: [phone] Dept Tony Armstrong PA-C 09/21/2024 4:57 PM Signed Please schedule appt with Dr. Tuttle in 6 months Referring Provider: ITA TUTTLE [[id number]] Allergies As of Date: 09/21/2024 (No Known Allergies) Date Reviewed: 09/21/2024 Reviewed by: Donte Iraheta II, RN - Fully Assessed Reason for Visit: Follow Up [171] Primary V (more content not included)...NormalPremier Health Atrium Medical CenterMR HAND LEFT WO IV CONTRASTon 98-55-5641QR HAND LEFT WO IV CONTRASTEXAM/TECHNIQUEMR HAND LEFT [...] MRI QuestionsCBC W Auto Differential panel (Bld)on 70-00-3319Cajcdjlig (Bld) [#/Vol]0.1 10*3/uLNOMS HealthcareBasophils/100 WBC (Bld)0 %Not Estab.NOMS HealthcareEosinophils (Bld) [#/Vol]0.2 10*3/uLNOMS HealthcareEosinophils/100 WBC (Bld)1 %Not Estab.[facility] HealthcareErythrocyte distribution width (RBC) [Ratio]12.7 %11.6 - 15.4 %NOM HealthcareHematocrit (Bld) [Volume fraction]44.5 %37.5 - 51.0 %[facility] HealthcareHemoglobin (Bld) [Mass/Vol]15.1 g/dL13.0 - 17.7 g/dLMercy hospital springfieldImmature granulocytes (Bld) [#/Vol]0 10*3/uLNOMS HealthcareImmature granulocytes/100 WBC (Bld)0 %Not Estab. [facility]S HealthcareLymphocytes (Bld) [#/Vol]12.7 10*3/uLHighNOMS Healthcare Lymphocytes/100 WBC (Bld)70 %Not Estab.[facility] springfieldMCH (RBC) [Entitic mass] 31.1 pg26.6 - 33.0 pgNOSaint Mary's Health CenterMCHC (RBC) [Mass/Vol]33.9 g/dL31.5 - 35.7 g/dLCass Medical CenterV (RBC) [Entitic vol]92 fL79 - 97 fLNODE Healthcare Monocytes (Bld) [#/Vol]0.6 10*3/uLNOMS HealthcareMonocytes/100 WBC [...] [Mass/Vol]1.9 g/dL1.5 - 4.5 g/dLNOMS HealthcareGlucose [Mass/Vol]100 mg/bBOpzk71 - 99 mg/dLNOMS HealthcarePotassium [Moles/Vol]4 mmol/L 3.5 - 5.2 mmol/LNOMS HealthcareProtein [Mass/Vol]6.4 g/dL6.0 - 8.5 g/dLNOMS HealthcareSodium [Moles/Vol]139 mmol/L134 - 144 mmol/LNOMS HealthcareUrea nitrogen [Mass/Vol]20 mg/dL8 - 27 mg/dLNOMS HealthcareUrea nitrogen/Creatinine [Mass ratio]21 mg/mg10 - 24NODE HealthcareLactate dehydrogenaseon 30-81-9359PUF Lactate to pyruvate reaction [Catalytic activity/Vol]261HighMercy hospital springfieldNo Panel Informationon 13-41-7872Cidkmhwhmeazij and review of laboratory results AbnormalNODE HealthcarePerformed at: [address] - [address] [id number] Senior Planning Manager: Chad Mccall PhD, Phone: [phone] Niagara Hospital, [facility] [facility] Specimen Status Reporton 70-59-6297Ajzqyygfyhs Disk diffusion (KB) [[facility]]Comment NOMS HealthcareComment on above:[place] Lock CMP14 Default [place] Lock CMP14 Default A hand-written panel/profile was received from your office. In accordance with the [facility]Mer[facility] Ambiguous Test Code Policy dated February 2003, we have completed your order by using the closest currently or formerly recognized AMA panel. We have assigned Comprehensive Metabolic Panel (14), Test Code #996465 to this request. If this is not the testing you wished to receive on this specimen, please contact the [facility] Client Inquiry/Technical Services Department to clarify the test order. We appreciate your business. XR ORBITS 1 TO 3 VIEWSon 11-21-8550RG ORBITS 1 TO 3 VIEWSXR ORBITS 1 TO 3 VIEWS/MRI CLEARANCE Reason for exam: MRI screening Prior comparative studies: None Findings: Screening Orbits: No radiopaque foreign bodies are seen to overlie the orbits on either side. Metallic dental appliance is noted.NormalNot AvailableXR finger LT 3rd digiton 96-70-0246OU finger LT 3rd digitNATIONWIDE CHILDREN'S [place] [address] XRay Report Signed Patient: Darius Valera MR#: [id number] 10 : 1960 Acct:[id number] Age/Sex: 63 / M ADM Date: 07/24/24 Loc: XDUCLY Room: Type: [facility] Attending Dr: Hannah Queen CHILD CARE PROVIDER Copies to: Hannah Queen APRN Ordering Provider: [...] Donte Quevedo M.D.07/24/2024 11:26 AM Dictation Location: [place] [address] Transcribed By: [facility] 07/24/24 1126 Dictated By: Donte Quevedo II, MD 07/24/24 1124 Signed By: 07/24/[address] [place] [address] Physician GroupXR THORACIC SPINE 3Von 48-81-0712[place] [address] XRay Report Signed Patient: DARIUS VALERA MR#: [id number] : 1960 Acct:[id number] Age/Sex: 63 / M ADM Date: 06/28/24 Loc: RAD Attending Dr: LINDA JANSEN Ordering Physician: LINDA JANSEN Date of Service: 06/28/24 Procedure(s): XR thoracic spine 3V Accession Number(s): [id number] cc: LINDA JANSEN [place] [id number] Patient Name: DARIUS VALERA MRN: [id number] date: 1960 Sex: M Assigned Patient Location: RAD Current Patient Location: Accession/Order Number: [id number] Exam Date: 06/28/2024 17:55 Report Date: 06/29/2024 [...] Signed By: 06/29/24 1503 DD/ 1501 TD/TT: Process Controller:TBHRadiology, Radiologist, - 06/29/2024 [place] [address] XRay Report Signed Patient: DARIUS VALERA MR#: [id number] : 1960 Acct:[id number] Age/Sex: 63 / M ADM Date: 06/28/24 Loc: RAD Attending Dr: LINDA JANSEN Ordering Physician: LINDA JANSEN Date of Service: 06/28/24 Procedure(s): XR thoracic spine 3V Accession Number(s): [id number] cc: LINDA JANSEN [place] [id number] Patient Name: DARIUS VALERA MRN: [id number] date: 1960 Sex: M Assigned Patient Location: RAD Current Patient Location: Accession/Order Number: [id number] Exam Date: 06/28/2024 17:55 Report Date: 06/29/2024 [...] Signed By: 06/29/24 1503 DD/ 1501 TD/TT: Process Controller: [facility]Rad[facility] Study observation (narrative)[facility]fieldXR THORACIC SPINE 3VOrdered By: Radiologist Radiology on 17-77-2699[facility] Work Phone: VITAMIN D 25 HYDROXY,TOT+D2+D3on 55-44-0138PAL REINA VITAMIN D 25 OH53 ng/mL.[facility] springfieldComment on above:Reference Range: All Ages: Target levels 30 - 100 VITAMIN D-2<1.0.[facility] Lab21Comment on above:This test was developed and its performance characteristics determined by [employer]. It has not been cleared or approved by the Food and Drug Administration. VITAMIN D-352 ng/mL.[facility] Lab21Comment on above:This test was developed and its performance characteristics determined by [employer]. It has not been cleared or approved by the Food and Drug Administration. Performed at: [facility] [address] [place] [id number] Senior Planning Manager: Johnnie Jansen MD, Phone: [phone] [facility] HealthcareFerritin [Mass/volume] in Serum or PlasmaOrdered By: Irene Solares on 64-43-5540Ustomvuv [Mass/Vol]Ferritin [Mass/volume] in Serum or Zbefpp94.9-336.2FMartins Ferry HospitalFerritin [Mass/Vol]63.9 ng/mL 23.9-336.2FMartins Ferry HospitalFolate [Mass/volume] in Serum or PlasmaOrdered By: Irene Solares on 04-68-5439Akguab [Mass/Vol]Folate [Mass/volume] in Serum or Plasma>5.9[facility] Medical CenterComment on above:Folate reference range: >5.9 ng/mlThe WHO technical consultation on folate and vitamin a98mqgoqxvifpgp has determined that folate concentrations lessthan 4 ng/ml are considered deficient.Folate [Mass/Vol]16.9 ng/mL>5.9[facility] CenterComment on above:Folate reference range: >5.9 ng/mlThe WHO technical consultation on folate and vitamin e33yjqqbeqpggdg has determined that folate concentrations lessthan 4 ng/ml are considered deficient.Iron [Mass/volume] in Serum or PlasmaOrdered By: Irene Solares on 64-14-0752Oswn [Mass/Vol]Iron [Mass/volume] in Serum or Tlkhzg75-717JylnipilkAshtabula County Medical CenterIron [Mass/Vol]83 ug/lF24-066XkazkjobhMain Campus Medical Centererum or plasma 25-hydroxycalciferol measurement (mass/volume)Ordered By: Irene Solares on 086171-zkisnelpdtsftm D2 [Mass/Vol]Serum or plasma 25-hydroxycalciferol measurement (mass/volume).[facility] Medical CenterComment on above: This test was developed and its performance characteristicsdetermined by [employer]. It has not been cleared or approvedby the Food and Drug Administration. 25-hydroxyvitamin D2 [Mass/Vol]<1.0 ng/mL.[facility] Comment on above:This test was developed and its performance characteristicsdetermined by [employer]. It has not been cleared or approvedby the Food and Drug Administration.Serum or plasma 25-hydroxyvitamin D measurement (mass/volume)Ordered By: Irene Solares on 324243-lwrwxeoqdzdlnq D [Mass/Vol]Serum or plasma 25-hydroxyvitamin D measurement (mass/volume). [facility] CenterComment on above:Reference Range:All Ages: Target levels 30 - 74797-sqjjbxbrixxqzi D [Mass/Vol]53 ng/mL.[facility] Medical CenterComment on above:Reference Range:All Ages: Target levels 30 - 100 Serum or plasma calcidiol measurement (mass/volume)Ordered By: Irene Solares on 867084-obvcgehqiirsbq D3 [Mass/Vol]Serum or plasma calcidiol measurement (mass/volume).[facility] Medical CenterComment on above:This test was developed and its performance characteristicsdetermined by [employer]. It has not been cleared or approvedby the Food and Drug Administration.Performed at: [facility] [address] [place], [place] [id number] Director: Johnnie Jansen MD, Phone: [phone]-hgbwhzjygcndci D3 [Mass/Vol]52 ng/mL. [facility] Medical CenterComment on above:This test was developed and its performance characteristicsdetermined by [employer]. It has not been cleared or approvedby the Food and Drug Administration.Performed at: [facility] [address] [place], [place] [id number] Director: Johnnie Jansen MD, Phone: [phone] or plasma iron binding capacity measurement (mass/volume) Ordered By: Irene Solares on 97-85-3283Wwzt binding capacity [Mass/Vol]Iron binding capacity [Mass/volume] in Serum or Spoart854-830XopjrtaxeAshtabula County Medical CenterIron binding capacity [Mass/Vol]304 ug/bH850-372Huydotbpp52 Brown Streeterum or plasma iron saturation measurement (mass fraction) Ordered By: Irene Solares on 86-91-6901Mnka saturation [Mass fraction]Iron saturation [Mass Fraction] in Serum or Rsbqpq77-22EdsrkpaliAshtabula County Medical CenterIron saturation [Mass fraction]27.3 %20-50[facility] CenterTransferrin [Mass/volume] in Serum or PlasmaOrdered By: Irene Solares on 90-72-1201Wqqiwcefsln [Mass/Vol]Transferrin [Mass/volume] in Serum or Plasma 203-362[facility] Medical CenterTransferrin [Mass/Vol]217 mg/qP691-329 [facility] CenterVitamin B12 ser/plasOrdered By: Irene Solares on 51-96-0518Ksvutlqqt (Vitamin B12) [Mass/Vol]Vitamin B12 ser/seze490-773 [facility] Medical CenterCobalamin (Vitamin B12) [Mass/Vol]554 pg/mL 180-[facility] Medical CenterAlanine aminotransferase [Enzymatic activity/volume] in Serum or PlasmaOrdered By: Christian Carlos on 04-20-2024 ALT [Catalytic activity/Vol]30 U/L7-[facility] Medical CenterAlbumin [Mass/volume] in Serum or Plasma by Bromocresol green (BCG) dye binding metho Ordered By: Christian Carlos on 68-53-6986Jemlbic BCG dye [Mass/Vol]4.1 g/dL 3.5-5.7FMartins Ferry HospitalAlkaline phosphatase [Enzymatic activity/volume] in Serum or PlasmaOrdered By: Christian Carlos on 04-20-2024 ALP [Catalytic activity/Vol]79 U/U74-680JxzluajbcAshtabula County Medical Center Anisocytosis LM Ql (Bld)Ordered By: Christian Carlos on 95-34-9912Goitbdqsjpez Ql (Bld)SlightAshtabula County Medical CenterAnisocytosis Ql (Bld)Anisocytosis [Presence] in Blood by Light microscopyAshtabula County Medical Center Aspartate aminotransferase [Enzymatic activity/volume] in Serum or PlasmaOrdered By: Christian Carlos on 82-82-9967MEI [Catalytic activity/Vol]29 U/L13-39 [facility] Medical CenterBasophils Auto (Bld) [#/Vol]Ordered By: Christian Carlos on 88-99-1752Wvdnadhiw (Bld) [#/Vol]0.0 10*3/uL0.0-0.2FMartins Ferry HospitalBasophils/100 WBC Auto (Bld)Ordered By: Christian Carlos on 00-61-6457Ksdxrtyov/100 WBC (Bld)0.3 %.[facility] Bilirubin.total [Mass/volume] in Serum or PlasmaOrdered By: Christian Carlos on 43-90-3086Iatipryqk [Mass/Vol]1.0 mg/dL0.3-1.0[facility] Calcium [Mass/volume] in Serum or PlasmaOrdered By: Christian Carlos on 53-01-4804Vlqdxac [Mass/Vol]8.8 mg/dL8.6-10.3FMartins Ferry Hospital Carbon dioxide, total [Moles/volume] in Serum or PlasmaOrdered By: Christian Carlos on 93-17-3275CF6 [Moles/Vol]31.5 mmol/LHigh21.0-31.0[facility] CenterChloride [Moles/volume] in Serum or PlasmaOrdered By: Christian Calros on 60-54-2193Xjekopyd [Moles/Vol]105 mmol/F69-742HlgmyzaqrAshtabula County Medical CenterComprehensive metabolic panelon 12-54-6925Abbtrov [Mass/Vol]4.1 g/dL3.5 - 5.7 g/dLNODE HealthcareAlbumin/Globulin [Mass ratio]2.2 {ratio}NOMS HealthcareALP [Catalytic activity/Vol]79 U/L34 - 104 U/LNOMS HealthcareALT [Catalytic activity/Vol]30 U/L7 - 52 U/LNOMS HealthcareAnion gap [Moles/Vol]9.3 mmol/L6.0 - 15.0NOMS HealthcareAST [Catalytic activity/Vol]29 U/L13 - 39 U/LNOMS HealthcareBilirubin [Mass/Vol]1.0 mg/dL0.3 - 1.0 mg/dLNODE HealthcareCalcium [Mass/Vol]8.8 mg/dL8.6 - 10.3 mg/dLNODE HealthcareChloride [Moles/Vol]105 mmol/L 98 - 107 mmol/LNOMS HealthcareCO2 [Moles/Vol]31.5 mmol/LHigh21.0 - 31.0 mmol/L [facility] HealthcareCreatinine (U) [Mass/Vol]0.90 mg/dL0.70 - 1.30 mg/dLNODE HealthcareCREATININE CLR CALC BMYIDJLO10.01NOMS HealthcareGFR/1.73 sq M.predicted MDRD (S/P/Bld) [Vol rate/Area]mL/min/{1.73_m2}[facility] Healthcare Globulin (S) [Mass/Vol]1.9 g/dLNOMS HealthcareGlucose [Mass/Vol]95 mg/dL70 - 100 mg/dLNODE HealthcareComment on above:Random Glucose Reference Range is [...] By: Christian Carlos on 04-20-2024 Creatinine [Mass/Vol]0.90 mg/dL0.70-1.30[facility] Eosinophils Auto (Bld) [#/Vol]Ordered By: Christian Carlos on 04-20-2024 Eosinophils (Bld) [#/Vol]0.2 10*3/uL0.0-0.45[facility] Eosinophils/100 WBC Auto (Bld)Ordered By: Christian Carlos on 04-20-2024 Eosinophils/100 WBC (Bld)1.4 %.[facility] Medical CenterErythrocyte distribution width Auto (RBC) [Ratio]Ordered By: Christian Carlos on 04-20-2024 Erythrocyte distribution width (RBC) [Ratio]13.9 %12.0-14.8[facility] Medical CenterGlobulin Calc (S) [Mass/Vol]Ordered By: Christian Carlos on 00-39-3136Hnlnhhcc (S) [Mass/Vol]1.9 g/dLAshtabula County Medical Center Glucose [Mass/volume] in Serum or PlasmaOrdered By: Christian Carlos on 70-73-6903Xmefgcp [Mass/Vol]95 mg/fS08-130HqjqqfethAshtabula County Medical Center Comment on above:ADA recommended reference rangeRandom Glucose Reference Range is dependent on time and content of last meal. Glucose of more than 200 mg/dL in a nonstressed, ambulatory subject supports the diagnosisof Diabetes Mellitus. Hematocrit Auto (Bld) [Volume fraction]Ordered By: Christian Carlos on 94-84-7407Vxxoeyztop (Bld) [Volume fraction]43.3 %38.8-50.0[facility] CenterHemoglobin [Mass/volume] in BloodOrdered By: Christian Carlos on 52-53-5492Srfmzdzwqo (Bld) [Mass/Vol]14.8 g/dL13.0-17.0[facility] Medical CenterLDH Lactate to pyruvate reaction [Catalytic activity/Vol]on 97-71-1789WKK LACTATE CRYPSKRWDTPKX391 U/L140 - 271 U/LNOMS HealthcareLactate dehydrogenase [Enzymatic activity/volume] in Serum or Plasma by Lactate to py Ordered By: Christian Carlos on 08-96-1314OZV Lactate to pyruvate reaction [Catalytic activity/Vol]212 U/V331-325MzdvtxxwtAshtabula County Medical Center Leukocytes [#/volume] corrected for nucleated erythrocytes in Blood by Automated counOrdered By: Christian Carlos on 48-00-3407NBB corrected for nucl RBC Auto (Bld) [#/Vol]13.3 10*3/uLHigh4.1-10.5FMartins Ferry Hospital Lymphocytes Auto (Bld) [#/Vol]Ordered By: Christian Carlos on 04-20-2024 Lymphocytes (Bld) [#/Vol]9.9 10*3/uLHigh1.00-4.8[facility] Medical CenterLymphocytes/100 WBC Auto (Bld)Ordered By: Christian Carlos on 04-20-2024 Lymphocytes/100 WBC (Bld)74.8 %.[facility] Auto (RBC) [Entitic mass]Ordered By: Christian Carlos on 68-88-8015KLT (RBC) [Entitic mass]31.2 pg27.5-35.2FCoshocton Regional Medical CenterHC Auto (RBC) [Mass/Vol] Ordered By: Christian Carlos on 66-91-8786HPZQ (RBC) [Mass/Vol]34.2 g/dL 32.5-35.6FCoshocton Regional Medical CenterV Auto (RBC) [Entitic vol]Ordered By: Christian Carlos on 53-14-6278JHF (RBC) [Entitic vol]91.4 fL83.5-101 [facility] CenterMicrocytes LM Ql (Bld)Ordered By: Christian Carlos on 78-51-4597Ixsgdfceih Ql (Bld)SlightAshtabula County Medical CenterMicrocytes Ql (Bld)Microcytes [Presence] in Blood by Light microscopy [facility] CenterMonocytes Auto (Bld) [#/Vol]Ordered By: Christian Carlos on 41-51-0765Mvrouexyn (Bld) [#/Vol]0.5 10*3/uL0.0-0.8[facility] CenterMonocytes/100 WBC Auto (Bld)Ordered By: Christian Carlos on 29-00-1882Eytrilqsr/100 WBC (Bld)3.7 %.[facility] Neutrophils Auto (Bld) [#/Vol]Ordered By: Christian Carlos on 04-20-2024 Neutrophils (Bld) [#/Vol]2.6 10*3/uL1.8-7.7FMartins Ferry Hospital Neutrophils/100 WBC Auto (Bld)Ordered By: Christian Carlos on 04-20-2024 Neutrophils/100 WBC (Bld)19.8 %.[facility] CenterNo Panel Informationon 72-70-7134GBNPMercy hospital springfieldNo Panel InformationOrdered By: Christian Carlos on 26-23-0014Ijqbotpgi GFR (CKD-EPI)> 60.0 mL/MinAshtabula County Medical CenterPhaacy Creatinine Clearance (Chem91.01[facility] CenterNucleated erythrocytes [Presence] in Blood by Automated countOrdered By: Christian Carlos on 63-38-7317Xbemubnhw RBC Auto Ql (Bld)0.3 /100{WBC}0-0.5 [facility] CenterPlatelet adequacy [Presence] in Blood by Light microscopyOrdered By: Christian Carlos on 44-57-7674Eitrbtoaz LM Ql (Bld) DecreasedNormMain Campus Medical CenterPlatelet mean volume Auto (Bld) [Entitic vol]Ordered By: Christian Carlos on 55-27-9263Gsoifexw mean volume (Bld) [Entitic vol]8.5 fL6.6-10.1FMartins Ferry HospitalPlatelet morphology finding [Identifier] in BloodOrdered By: Christian Carlos on 46-24-1089Gguzesvr morphology finding Nom (Bld)NormalNormMain Campus Medical CenterPlatelets Auto (Bld) [#/Vol]Ordered By: Christian Carlos on 67-81-0529Zqlwggfoq (Bld) [#/Vol]108 10*3/rUFah286-152XrpxisiuoAshtabula County Medical CenterPotassium [Moles/volume] in Serum or PlasmaOrdered By: Christian Carlos on 77-66-5487Hdlsawcur [Moles/Vol]3.8 mmol/L3.5-5.1FMartins Ferry HospitalProtein [Mass/volume] in Serum or PlasmaOrdered By: Christian Carlos on 86-01-8376Qikbubn [Mass/Vol]6.0 g/dLLow6.4-8.9[facility] RBC Auto (Bld) [#/Vol]Ordered By: Christian Carlos on 19-26-6948IDL (Bld) [#/Vol]4.74 10*6/uL3.90-5.60[facility] Medical CenterRBC morphology Ordered By: Christian Carlos on 11-39-4951CGW morphology finding Nom (Bld)N/A [facility] Medical Centererum or plasma albumin/globulin mass ratio Ordered By: Christian Carlos on 14-84-3546Sdedwkw/Globulin [Mass ratio]2.2 {ratio}[facility] Medical Centererum or plasma anion gap determination Ordered By: Christian Carlos on 94-87-2972Uednf gap [Moles/Vol]9.3 mmol/L 6.0-15.0[facility] Campus Medical Centerodium [Moles/volume] in Serum or PlasmaOrdered By: Christian Carlos on 76-57-8474Lwkgty [Moles/Vol]142 mmol/L 136-145[facility] Medical CenterUrea nitrogen [Mass/volume] in Serum or PlasmaOrdered By: Christian Carlos on 11-96-6933Uaff nitrogen [Mass/Vol]20 mg/dL7-25[facility] Medical CenterWBC Auto (Bld) [#/Vol]Ordered By: Christian Carlos on 78-52-4961UKX (Bld) [#/Vol]13.3 10*3/uLHigh4.1-10.5 [facility] CenterNo Panel InformationOrdered By: Christian Carlos on 91-12-0415HEN CommentSee commentAshtabula County Medical Center Comment on above:Slide referred to pathologist for reviewSmudge cell detection Ordered By: Christian Carlos on 04-24-7876Huhksb cells LM Ql (Bld)[facility] Hospitalmudge cells [Presence] in Blood by Light microscopyOrdered By: Christian Carlos on 52-87-2571Jvqjfh cells LM Ql (Bld) Smudge cell detectionAshtabula County Medical CenterConsultation Noteon 31-13-0653Gptznreaboxy [id number]#1.00TIFF [facility] CenterComment on above:Other Comment: FILING ERROR CRRECG COMPLETEon 92-20-1315Hpvffu Rate71 BPMCleTrumbull Memorial HospitalCalculated P Axis12 [address] [facility]les hospital ClinicCalculated R [place]-[address] [facility] [facility] ClinicCalculated T Axis28 degreesCleTrumbull Memorial HospitalP-R Kjlgawml199 msCleveland ClinicQRS Zqayvadw36 msCleveland ClinicQT Vydowoxn998 msCleveland ClinicQTC Calculation (Caro)439 msCleveland ClinicVentricular Rate71 BPMNewark Hospital for Release of Medical Recordson 44-61-4496Uezj for Release of Medical Records [id number]#1.00TIFChillicothe VA Medical CenterLab Reportson 96-83-9748Aqh Reports [id number]#1.00Premier Healthcreenson 09-95-4511Vtnvtgv [id number]#1.00[facility] HospitalAmbulatory Visit Summaryon 61-44-5656Uiwemmeugu Visit Summary SOTO DARIUS Giles :1960 Visit Date:06/02/2023 Ambulatory Visit Instructions Your Diagnosis Ureteral stone with hydronephrosis Erectile dysfunction Tests Performed Urnls Dip Stick Auto w/o Microscopy POC 72866 Your Care Team Attending Physician - Iesha Gamino MD This Is Your Medications List amlodipine aspirin (aspirin 81 mg oral tablet) atenolol (atenolol 100 mg Tab) hydrochlorothiazide-lisinopril (hydrochlorothiazide-lisinopril 12.5 mg-20 mg Tab) omega-3 polyunsaturated fatty acids (Everetts-3) potassium chloride (Klor-Con) Discharge Vitals Heart Rate [...] Every day Unchanged omega-3 polyunsaturated fatty acids (Everetts-3) Unchanged potassium chloride (Klor-Con) Test Results Urnls Dip Stick Auto w/o Microscopy POC 32792 (06/02/2023) Bilirubin Urine Dipstick - Negative Blood Urine Dipstick - Trace-intact Glucose Urine Dipstick - Negative Ketones Urine Dipstick - Negative Leukocytes Urine Dipstick - Negative Nitrite Urine Dipstick - Negative Protein Urine Dipstick - Negative Specific [place] Urine Dipstick - 1.015 Urine Appearance Urine [...] apnea Ureteral stone Ureteral stone with hydronephrosis [facility] Educationon 06-02-2023 Patient EducationUrology Erectile Dysfunction Erectile [...] these instructions at home: Medicines ? Take pqbu-uym-evgbqed and prescription medicines only as told by [...] These products include cig (more content not included)...[facility] Urology Office/Clinic Noteon 81-67-0605Prufdxk Office/Clinic NoteChief Complaint follow up to [facility]/consult HPI Staff 62 year old male seen at [facility] consult for Lt. UVJ stone,hydro,renal colic, [...] by PCP Denies medical issues, hx of PA, stroke or DM2. On ASA 81mg Portions of this record may have been created with voice recognition artificial intelligence software, specifically [employer], [employer] (Listn) and or [employer]. Substitutions may have occurred due to the inherent limitations of voice recognition and artificial intelligence software. 1. Ureteral stone with hydronephrosis (N13.2: Hydronephrosis with renal and ureteral calculous obstruction) Last stone event 10 years ago, denies surgical intervention. Pt presented to [facility] ER 04/14/23 with uncontrolled left flank [...] oxalate intake fro (more content not included)...Normal [facility] HospitalComment on above:Result Comment: Electronically Signed By: Iesha Gamino MD\.br\Date and Time Signed: 06/02/23 17:30 EDT\.br\Electronically Co-Signed By: Patience Castellon\.br\Date and Time Co- Signed: 06/02/23 16:04 EDTRAD - Ultrasound Reporton 95-28-9226YQT - Ultrasound [id number]#1.00CD:[address] [place], [place] [address]Consultation Noteon 80-30-1036Sopxvlhyznyb Note [id number]#1.00CD:[address] [place], [place] [address]Insurance Correspondence Officeon 00-67-9650Sodpwztqw Correspondence [id number]#1.00CD:[address] [place], [place] [address]Lab Reportson 86-54-5434Fdo Reports [id number]#1.00CD:[address] [place], [place] [address]Consultation Noteon 75-22-1094Ppzyzkdmlwyc Note [id number]#1.00CD:[address] [place], [place] [address]Operative Reporton 01-13-5572Rqxvffmxr Report [id number]#1.00CD:[address] [place], [place] [address]RAD - MISCon 34-77-2416VQX - MISC [id number]#1.00CD:[address] [place], [place] [address]RAD - Ultrasound Reporton 14-27-5043CQB - Ultrasound Report [id number]#1.00CD:127[facility] CenterRAD - CT Reporton 14-10-0503NDV - CT Report [id number]#1.00CD:127[facility] Medical CenterConsultation Noteon 62-99-1443Dwizcpbgigmt Note [id number]#1.00CD:127[facility] Medical CenterMRI ANKLE RT WO CONon 39-79-1694RYA ANKLE RT WO CONEXAM: MRI ANKLE RT [...] Electronically authenticated by: JANAY PANDYA Date: 2023-01-22 07:[address] [place] [address] AUTO DIFFon 45-72-9560AXRN #0.0 103/ulNormal0.0-0.1The [facility] Medical CenterComment on above:Performed By: #### CBC #### [facility] [address] [place] [address] Dr. Yilan ChangBasophils/100 WBC (Bld)0.4 %Normal0.2-2.0The [facility] Comment on above:Performed By: #### CBC #### [facility] [address] [place] [address] Dr. Gautam Lowe #0.1 103/ulNormal0.0-0.7The [facility] Medical CenterComment on above: Performed By: #### CBC #### [facility] [address] [place] [address] Dr. Gautam Gonzalezosinophils/100 WBC (Bld)1.3 %Normal0.9-7.0The [facility] Comment on above:Performed By: #### CBC #### [facility] [address] [place] [address] Dr. Gautam Gonzalezrythrocyte distribution width (RBC) [Ratio]12.6 %Dvibly45.0-15.0 The [facility] Medical CenterComment on above:Performed By: #### CBC #### [facility] [address] [place] [address] Dr. Gautam VanHematocrit (Bld) [Volume fraction]47.0 %Uoknox56.0-54.0The [facility] CenterComment on above:Performed By: #### CBC #### [facility] [address] [place] [address] Dr. Gautam VanHemoglobin (Bld) [Mass/Vol]16.1 g/wHQsatir83.0-18.0The [facility] Medical CenterComment on above:Performed By: #### CBC #### [facility] [address] [place] [address] Dr. Gautam Romano #0.02 10e3/ulNormal0.00-0.03The [facility] Medical CenterComment on above:Performed By: #### CBC #### [facility] [address] [place] [address] Dr. Gautam Romano %0.2 %Normal0.0-0.5The [facility] Medical CenterComment on above: Performed By: #### CBC #### [facility] [address] [place], [place] [address] Dr. Gautam Ford #7.0 103/ulCritically high1.2-3.8The [facility] Comment on above:Performed By: #### CBC #### [facility] [address] [place] [address] Dr. Gautam Crumhocytes/100 WBC (Bld)64.7 %Critically high20.5-60.0The [facility] CenterComment on above:Performed By: #### CBC #### [facility] [address] [place] [address] Dr. Gautam Ramirez DIFF REQNONormalThe [facility] CenterComment on above: Performed By: #### CBC #### [facility] [address] [place] [address] Dr. Gautam Aguilar (RBC) [Entitic mass]30.7 bdYgatqm94.9-34.0The [facility] CenterComment on above:Performed By: #### CBC #### [facility] [address] [place] [address] Dr. Gautam Aguilar (RBC) [Mass/Vol]34.3 g/tESfvpbl45.9-35.2The [facility] Medical CenterComment on above:Performed By: #### CBC #### [facility] [address] [place] [address] Dr. Gautam Aguilar (RBC) [Entitic vol]89.7 lRHmdgwu16.0-94.0The [facility] Medical CenterComment on above:Performed By: #### CBC #### [facility] [address] [place] [address] Dr. Gautam Kenney #0.5 103/ulNormal0.3-0.8The [facility] Medical CenterComment on above:Performed By: #### CBC #### [facility] [address] [place] [address] Dr. Gautam Westbrookocytes/100 WBC (Bld)4.6 %Normal1.7-12.0The [facility] Comment on above:Performed By: #### CBC #### [facility] [address] [address] [address] aGutam Mercer #3.1 103/ulNormal1.4-6.5The [facility] CenterComment on above:Performed By: #### CBC #### [facility] [address] [address] [address] Gautam Garzautrophils/100 WBC (Bld)28.8 %Critically low43.0-75.0The [facility] CenterComment on above:Performed By: #### CBC #### [facility] [address] [address] [address] Gautam VanPlatelet mean volume (Bld) [Entitic vol]10.6 fLNormal9.5-13.5The [facility] CenterComtrinity [facility] on above:Performed By: #### CBC #### [facility] [address] [place] [address] Dr. Gautam VanPLT144 103/ulCritically eat818-582Bfg [facility] CenterComtr[facility] on above:Performed By: #### CBC #### [facility] [address] [place] [address] Dr. Gautam VanRBC5.24 106/ulNormal4.70-6.10The [facility] on above:Performed By: #### CBC #### [facility] [address] [place] [address] Dr. Gautam VanWBC10.8 103/ulNormal4.0-11.0[facility] on above:Performed By: #### CBC #### [facility] [address] [place] [address] Dr. Gautam VanLIPID PROFILEon 23-17-1655YXFR-HDL RATIO NORMSEE [facility] on above:Result Comment: 3.3 - 4.4 LOW RISK 4.4 - 7.1 AVERAGE RISK 7.1 - 11.0 MODERATE RISK >11.0 HIGH RISKPerformed By: #### LIPID, T4, TSH, CMP ####[facility] [address] [address]Dr. Yilan ChangCholesterol [Mass/Vol]183 mg/dLNormal<=200The [facility] CenterComment on above:Performed By: #### LIPID, T4, TSH, CMP ####[facility] [address] [address]Dr. Gautam Van Cholesterol in HDL [Mass/Vol]70 mg/dLCritically skhm12-49CsaWayne Healthcare Main Campus Comment on above:Performed By: #### LIPID, T4, TSH, CMP ####[facility] [address] [address]Dr. Gautam VanCholesterol in LDL [Mass/Vol]104.2 mg/dLGalion Community HospitalComment on above:Performed By: #### LIPID, T4, TSH, CMP ####[facility] [address] [place], [place] [address]Dr. Opallan ChangCholesterol.total/Cholesterol in HDL [Mass ratio]2.6 {ratio}NormalWayne Healthcare Main CampusComtrinity health mus[facility] hospital on above:Performed By: #### LIPID, T4, TSH, CMP ####[facility] [address] [place], [place] [address]Dr. Yilan ChangHDL NORMAL> or = 60 mg/dl - LOW CARDIOVASCULAR RISK <40 mg/dl - HIGH CARDIOVASCULAR RISKGalion Community HospitalComtrinity health [facility] on above:Performed By: #### LIPID, T4, TSH, CMP ####[facility] [address] [place], [place] [address]Dr. Yilan ChangLDL CALC NORMALSEE BELOWNoDayton Children's HospitalComment on above:Result Comment: <100 mg/dl OPTIMAL 100 - 129 mg/dl NEAR OR ABOVE OPTIMAL 130 - 159 mg/dl BORDERLINE HIGH 160 - 189 mg/dl HIGH >190 mg/dl VERY HIGHPerformed By: #### LIPID, T4, TSH, CMP ####[facility] [address] [place], [place] [address]Dr. Yilan ChangTriglyceride [Mass/Vol]44 mg/dLNormal <=150[facility] on above:Performed By: #### LIPID, T4, TSH, CMP ####[facility] [address] [place], [place] [address]KfDr. Gautam ShahidLDL CALC8.8 mg/dLNormalThe [facility] CenterComment on above: Performed By: #### LIPID, T4, TSH, CMP ####[facility] [address] [address]Dr. Gautam BennettF 14(COMP METB)on 12-27-2022 Albumin [Mass/Vol]4.0 g/dLNormal3.4-5.0The [facility] CenterComment on above: Performed By: #### LIPID, T4, TSH, CMP #### [facility] [address] [address] [address] Gautam VanAlbumin/Globulin [Mass ratio]1.2 {ratio}NormalThe [facility] on above:Performed By: #### LIPID, T4, TSH, CMP #### [facility] [address] [address] [address] Gautam Gleason [Catalytic activity/Vol]104 U/RCvjkea79-938Jxt [facility] on above:Performed By: #### LIPID, T4, TSH, CMP #### [facility] [address] [address] [address] Gautam Herrmann [Catalytic activity/Vol]36 U/CBqwzkt73-18Osu [facility] on above:Performed By: #### LIPID, T4, TSH, CMP #### [facility] [address] [address] [address] Gautam Zambrano gap [Moles/Vol]9.8 mmol/LNormalThe [facility] on above:Performed By: #### LIPID, T4, TSH, CMP #### [facility] [address] [address] [address] Gautam Westfall [Catalytic activity/Vol]22 U/RMyrfpl95-12Wor [facility] on above:Performed By: #### LIPID, T4, TSH, CMP #### [facility] [address] [address] [address] Gautam Fernandezirubin [Mass/Vol]0.9 mg/dLNormal0.2-1.0The [facility] Comment on above:Performed By: #### LIPID, T4, TSH, CMP #### [facility] [address] [place] [address] Dr. Gautam VanCalcium [Mass/Vol]9.1 mg/dLNormal8.5-10.1The [facility] Comment on above:Performed By: #### LIPID, T4, TSH, CMP #### [facility] [address] [place] [address] Dr. Gautam VanChloride [Moles/Vol]103 mmol/JTanwyw35-790EbjWayne Healthcare Main Campus Comment on above:Performed By: #### LIPID, T4, TSH, CMP #### [facility] [address] [place] [address] Dr. Gautam VanCO2 [Moles/Vol]30.6 mmol/HYabmvy66.0-32.0[facility] Comment on above:Performed By: #### LIPID, T4, TSH, CMP #### [facility] [address] [place] [address] Dr. Gautam VanCreatinine [Mass/Vol]0.81 mg/dLNormal0.70-1.30The [facility] CenterComment on above:Performed By: #### LIPID, T4, TSH, CMP #### [facility] [address] [place] [address] Dr. Gautam GonzalezGFR-AF ESTONIAN>60Normal>=60The [facility] CenterComment on above:Performed By: #### LIPID, T4, TSH, CMP #### [facility] [address] [place] [address] Dr. Gautam GonzalezGFR-NON AF ESTONIAN>60Normal>=60The [facility] CenterComment on above:Performed By: #### LIPID, T4, TSH, CMP #### [facility] [address] [place] [address] Dr. Gautam VanGlobulin (S) [Mass/Vol]3.3 g/dLNormalThe [facility] CenterComment on above:Performed By: #### LIPID, T4, TSH, CMP #### [facility] [address] [address] [address] Gautam VanGlucose [Mass/Vol]103 mg/rJKoiwte58-102Lof [facility] Comment on above:Performed By: #### LIPID, T4, TSH, CMP #### [facility] [address] [place] [address] Dr. Gautam VanPotassium [Moles/Vol]4.4 mmol/LNormal3.5-5.1The [facility] Comment on above:Performed By: #### LIPID, T4, TSH, CMP #### [facility] [address] [place] [address] Dr. Gautam VanProtein [Mass/Vol]7.3 g/dLNormal6.4-8.2The [facility] Comment on above:Performed By: #### LIPID, T4, TSH, CMP #### [facility] [address] [place] [address] Dr. Gautam VanSodium [Moles/Vol]139 mmol/EJqorec511-653Lza [facility] Comment on above:Performed By: #### LIPID, T4, TSH, CMP #### [facility] [address] [place] [address] Dr. Gautam VanUrea nitrogen [Mass/Vol]16.0 mg/dLNormal7.0-18.0Way[facility] Healthcare Main CampusComment on above:Performed By: #### LIPID, T4, TSH, CMP #### [facility] [address] [place] [address] Dr. Gautam Jacobs nitrogen/Creatinine [Mass ratio]19.8 mg/mgNormalThe [facility] CenterComment on above:Performed By: #### LIPID, T4, TSH, CMP #### [facility] [address] [place] [address] Dr. Gautam VanT4on 44-11-2723G3 [Mass/Vol]9.10 ug/dLNormal4.50-12.10The [facility] CenterComment on above:Performed By: #### LIPID, T4, TSH, CMP ####[facility] [address] [place], [place] [address]SnDr. Florez Jabari 56-62-9045KHM9.043 uIU/mLNormal0.358-3.740[facility] Comment on above:Performed By: #### LIPID, T4, TSH, CMP #### [facility] [address] [place], [place] [address] Dr. Gautam VanCT FOOT RT WO CONon 34-95-3902WH FOOT RT WO CONEXAMINATION: CT FOOT RT [...] Electronically authenticated by: KIRSTIE GUERRERO Date: 2022-11-17 08:57Galion Community HospitalBasi metabolic 2000 panelon 48-09-3095Zxbjm gap [Moles/Vol]9 mmol/LNormal9-18Woodstock HospitalComment on above:Order Comment: Specimen Type: BLOOD SPECIMEN Ordering Facility: [facility] Address: [address] [place] [address]Lkibefoir By: #### 18645-6, 06006-7 #### [facility] CLIA [id number] [facility] [place] [address] [place] AMERICACalcium [Mass/Vol]9.4 mg/dLNormal8.5-10.2 [facility] HospitalComment on above:Order Comment: Specimen Type: BLOOD SPECIMEN Ordering Facility: [facility] Address: [address] [place], [place] [address]Performed By: #### 46422-2, 50509-8 #### [facility] CLIA [id number] [address] [place] [address] [place] AMERICAChloride [Moles/Vol]101 mmol/LNormal 97-105Av HospitalComment on above:Order Comment: Specimen Type: BLOOD SPECIMEN Ordering Facility: [facility] Address: [address] [place], [place] [address]Performed By: #### 46667-6, 30439-5 #### [facility] CLIA [id number] [address] [place] [address] [place] AMERICACO2 [Moles/Vol]30 mmol/WSbsdrs96-23Mgte HospitalComment on above:Order Comment: Specimen Type: BLOOD SPECIMEN Ordering Facility: [facility] Address: [address] [place], [place] [address]Performed By: #### 02055-9, 47907-1 #### [facility] [place] [id number] [address] [place] [address] [place] AMERICACreatinine [Mass/Vol]1.01 mg/dLNormal 0.73-1.22Av HospitalComment on above:Order Comment: Specimen Type: BLOOD SPECIMEN Ordering Facility: [facility] Address: [address] [place], [place] [address]Performed By: #### 73089-1, 82705-9 #### [facility] IA [id number] [address] [place] [address] [place] OF AMERICAESTIMATED GLOMERULAR FILTRATION RATE84 mL/min/1.73m???Normal>=60Av HospitalComment on above:Order Comment: Specimen Type: BLOOD SPECIMEN Ordering Facility: [facility] Address: [address] [place], [place] [address]Result Comment: Estimated Glomerular Filtration Rate (eGFR) is [...] not accurately reflect actual GFR.Performed By: #### 67064-0, 38571-7 #### [facility] CLIA [id number] [address] [place] [address] [place] AMERICAGlucose [Mass/Vol]92 mg/nOMcjxra69-47Glqw HospitalComment on above:Order Comment: Specimen Type: BLOOD SPECIMEN Ordering Facility: [facility] Address: [address] [place], [place] [id number] Comment: The [place] [employer] Association (ADA) provides guidance for cutoff [...] Standards of Medical Care in Diabetes 2016, [place] [employer]. Diabetes Care. 2016.39(Suppl 1).Performed By: #### 96352-1, 21758-8 #### [facility] CLIA [id number] [address] [place] [address] [place] AMERICAPotassium [Moles/Vol]4.4 mmol/LNormal 3.7-5.1Avirtua berlin HospitalComment on above:Order Comment: Specimen Type: BLOOD SPECIMEN Ordering Facility: [facility] Address: [address] [place], [place] [id number] By: #### 43542-2, 57182-7 #### [facility] CLIA [id number] [address] [place] [address] [place] AMERICASodium [Moles/Vol]140 mmol/KOgjsdi709-878 [facility] HospitalComment on above:Order Comment: Specimen Type: BLOOD SPECIMEN Ordering Facility: [facility] Address: [address] [place] [address]Zqtijcafh By: #### 92732-7, 73178-2 #### [facility] CLIA [id number] [address] [place] [address] [place] AMERICAUrea nitrogen [Mass/Vol]22 mg/dLNormal 9-24Avon HospitalComment on above:Order Comment: Specimen Type: BLOOD SPECIMEN Ordering Facility: [facility] Address: [address] [facility] [place] [address]Ohbidwnrj By: #### 20311-5, 53276-3 #### [facility] CLIA [id number] [address] [place] [address] [place] AMERICAAnion gap [Moles/Vol]9 mmol/L9 - 18 mmol/LCleveland ClinicCalcium [Mass/Vol]9.4 mg/dL8.5 - 10.2 mg/dLClemercy health st. charles hospital ClinicChloride [Moles/Vol]101 mmol/L97 - 105 mmol/LCleveland ClinicCO2 [Moles/Vol]30 mmol/L22 - 30 mmol/LCleveland ClinicCreatinine [Mass/Vol]1.01 mg/dL0.73 - 1.22 mg/dLHolzer Health SystemEstimated Glomerular Filtration Rate84 mL/min/1.73m>=60 mL/min/1.73mCleveland ClinicGlucose [Mass/Vol]92 mg/dL74 - 99 mg/dLHolzer Health SystemPotassium [Moles/Vol]4.4 mmol/L3.7 - 5.1 mmol/LCleveland ClinicSodium [Moles/Vol]140 mmol/L136 - 144 mmol/LCleveland ClinicUrea nitrogen [Mass/Vol]22 mg/dL9 - 24 mg/dLHolzer Health SystemMAGNESIUM BLDon 10-17-2022 Magnesium [Mass/Vol]2.1 mg/dL1.7 - 2.3 mg/dLHolzer Health SystemMagnesium SerPl-mCnc on 80-42-4291Jatctwjke [Mass/Vol]2.1 mg/dLNormal1.7-2.3Avon HospitalComment on above:Order Comment: Specimen Type: BLOOD SPECIMEN Ordering Facility: [facility] Address: [place] [address]Spuhhannk By: #### 34719-2, 82044-6 #### [facility] CLIA [id number] [address] [facility] [place] [address] [place] AMERICAXR ANKLE RT MIN 3 VIEWSon 87-59-8171YT ANKLE RT MIN 3 VIEWSEXAM: XR ANKLE [...] Electronically authenticated by: DIANE MENEZES Date: 2022-10-09 07:[address] [place], [place] [address]ARRHYTHMIA TRANS TELE MEASUREon 09-74-7984Kdvrzkv [place] Interval 179Cleveland ClinicMEASURE QRS Riaqdief68Vddfvhwcq ClinicMEASURE QT Kofpfsmz531 Herrera ClinicMEASURE RR INTERVAL MAX78.86Cleveland ClinicSymptomsroutine Orchard ClinicARRHYTHMIA TRANS TELE MEASUREon 57-68-8590Qrcdonczje-Activity tried a couple different timesCleveland ClinicMeasure [place] Qubbctyk002Qksqyprcq ClinicMEASURE QRS Byasirie62Tvamcptti ClinicMEASURE QT Mdedvrjs940Eoxkhqups ClinicMEASURE RR INTERVAL MAX91.21Cleveland ClinicSymptomsroutineOrchard ClinicARRHYTHMIA TRANS TELE MEASUREon 30-51-9770Orjfjuv [place] Fcimycsh367Kzvrbuouh ClinicMEASURE QRS Anrhziya86Uhdytdquk ClinicMEASURE QT Rccvsywq451Trqiojqlv ClinicMEASURE RR INTERVAL MAX81.74Cleveland ClinicSymptomsroutineOrchard ClinicARRHYTHMIA TRANS TELE MEASUREon 19-60-1343Ovxjnnm [place] Ctvpmxrz537Qcoxuzrdr ClinicMEASURE QRS Jheijstp84Rtyqoworx ClinicMEASURE QT Sndbrckp168Gplkcyavi ClinicMEASURE RR INTERVAL MAX82.87CleHolmes County Joel Pomerene Memorial HospitalCREATININE, BLOOD (POC)on 91-27-0131Bgxyyhhgfv [Mass/Vol]0.90 mg/dL0.7 - 1.4 mg/dLOrchard ClinicGFR/1.73 sq M.predicted among non-blacks MDRD (S/P/Bld) [Vol rate/Area]mL/min/{1.73_m2}[facility] PULMONARY VEIN W IVCONon 66-83-5114Pqfyxzwca ResultACTIONABLEAbnormalCleveland ClinicARRHYTHMIA TRANS TELE MEASUREon 79-18-0118Lhtaltm [place] Oucrvhgn288Xjjkgnytb ClinicMEASURE QRS Cgxcocoa50Slolwqxox ClinicMEASURE QT Oobwzbiz764Ltmbocnlr ClinicMEASURE RR INTERVAL MAX75.85CleMercy Health [facility] - BP is elevated, pt. feeling palpitaions when lying down, tired-3-5 dayOrchard ClinicARRHYTHMIA TRANS TELE MEASUREon 72-56-3034Tvjajgc [place] Ukigmfac179Iykptvfha ClinicMEASURE QRS Interval 107Clemercy health st[facility] ClinicMEASURE QT Qscnpbft481Gjiwfkwfk ClinicMEASURE RR INTERVAL MAX 75.85CleBucyrus Community HospitalymptomsrCape Fear Valley [facility] Hospital ClinicARRHYTHMIA TRANS TELE MEASUREon 06-71-6875Srjtbsg [place] Iuuaemoo855Ktxuiwecg ClinicMEASURE QRS Zrzfwxsr57 Herrera ClinicMEASURE QT Iybquvqy288Wssnrmwgs ClinicMEASURE RR INTERVAL MAX 77.16CleBucyrus Community HospitalymptomsroutineOrchard ClinicARRHYTHMIA TRANS TELE MEASUREon 81-40-0877Xuspxdr [place] Nurouzvd747Taombctti ClinicMEASURE QRS Zqusbjyt70 Herrera ClinicMEASURE QT Zgrbkrvi258Mixtcyrjk ClinicMEASURE RR INTERVAL MAX 70.82CleBucyrus Community HospitalymptomsroutineCleveland ClinicARRHYTHMIA TRANS TELE MEASUREon 06-65-4903Nbdbhho [place] Suwepkma367Ykcvxmmnz ClinicMEASURE QRS Mkerwbna64 Herrera ClinicMEASURE QT Isbofgxd522Fvfpdofzi ClinicMEASURE RR INTERVAL MAX 71.95CleWVUMedicine Harrison Community Hospitalptomsrsoutheast missouri community treatment centerineOrchard ClinicARRHYTHMIA TRANS TELE MEASUREon 97-74-2244Kloilyr [place] Pbxlgcos641Nkpdmxlkw ClinicMEASURE QRS Ojpfbbeo15 Herrera ClinicMEASURE QT Jamltois767Woswvyyym ClinicMEASURE RR INTERVAL MAX 72.53[facility] HospitalymptomsroutineCleveland ClinicARRHYTHMIA TRANS TELE MEASUREon 61-22-2360Seyfgsi [place] Qoppqfsn518Dvzriyppg ClinicMEASURE QRS Njdvlxmq22 Herrera ClinicMEASURE QT Iobfgqul715Xqlacnbkh ClinicMEASURE RR INTERVAL MAX 67.8[facility] HospitalymptomsrCape Fear Valley [facility] ClinicARRHYTHMIA TRANS TELE MEASURE on 35-33-8582Nhadydz [place] Akklvwhh298Fatidyfsl ClinicMEASURE QRS Vrblanpg14 Herrera ClinicMEASURE QT Yugbrqjw312Xokmrzwao ClinicMEASURE RR INTERVAL MAX 71.89CleBucyrus Community HospitalymptomsroutineCleveland ClinicARRHYTHMIA TRANS TELE MEASUREon 05-24-3673Allreha [place] Bbmjgefc681Kyrdjhaks ClinicMEASURE QRS Yshmbebe24 Herrera ClinicMEASURE QT Bllrkbhq180Pjcubmcbn ClinicMEASURE RR INTERVAL MAX 77.83CleBucyrus Community HospitalymptomsroutineCleveland ClinicARRHYTHMIA TRANS TELE MEASUREon 14-76-7220Qaeimes [place] Powbjohh443Bciddegyu ClinicMEASURE QRS Dadgifih41 Herrera ClinicMEASURE QT Rwykthne400Jukryvsfo ClinicMEASURE RR INTERVAL MAX 79.56[facility] HospitalymptomsroutineCleveland ClinicARRHYTHMIA TRANS TELE MEASUREon 47-16-8468Csdhwsh [place] Oefzzghq704Himofzjta ClinicMEASURE QRS Ntszieis62 Herrera ClinicMEASURE QT Zlbiuebe166Dimpguroq ClinicMEASURE RR INTERVAL MAX 66.79CleBucyrus Community HospitalymptomsRoutineCleveland ClinicARRHYTHMIA TRANS TELE MEASUREon 65-25-6908Qlgnksl [place] Kngmuvlo599Uifvtzgfd ClinicMEASURE QRS Fwwswggx69 Herrera ClinicMEASURE QT Ahuwdupq063Jkaksyunx ClinicMEASURE RR INTERVAL MAX 68.15C[facility] ClinicSymptomsroutineCleveland ClinicARRHYTHMIA TRANS TELE MEASUREon 61-02-3631Pogpenj [place] Zwlotlod428Qyfxktfei ClinicMEASURE QRS Kopiaejl75 Herrera ClinicMEASURE QT Stghnbxb970Mhycrmlor ClinicMEASURE RR INTERVAL MAX 74.32Cleveland ClinicSymptomsroutineCleveland ClinicARRHYTHMIA TRANS TELE MEASUREon 66-51-9150Dgjxcza [place] Ipmwqdps974Kkkfupqjk ClinicMEASURE QRS Ztzhlsby89 Herrera ClinicMEASURE QT Wgynemii300Lxrquteki ClinicMEASURE RR INTERVAL MAX 73.06CleBucyrus Community HospitalymptomsbaselineCleveland ClinicARRHYTHMIA TRANS TELE MEASUREon 58-28-9014Lgvrxso [place] Vvzgjgzs064Tjnruwtqj ClinicMEASURE QRS Pyvhuyaq89 Orchard ClinicMEASURE QT Rhiultvg269Tidlnjbva ClinicMEASOCHSNER RUSH HEALTH RR INTERVAL MAX 70.75Orchard ClinicSymptomsbaselineHolzer Health SystemTobacco Screening.on 83-42-7720Zfjvfeq use status CPHSb) NoMP-[facility] [address] DO Work Phone: No Panel Informationon 90-75-538579.0\S\27.0Normal 22.0-30.0MP-[facility] [address] DO Work Phone: Comment on above:PERFORMED BY:[facility] [place], [place] [phone] MEDICAL DIRECTORADEEL LOPES M.D.99\S\67Cjjnub45-662HH-Kmjnm [place] [facility]-[place] DO Work Phone: [phone] 909-95103.8\S\3.9Qurpqn3.5-5.1MP-[facility] [address] DO Work Phone: [phone]\S\174Xodpos970-474WO-[facility] [place] [facility] [address] DO Work Phone: IO EKG Electrocardiogram- 12 Leadon 41-38-2632FV EKG Electrocardiogram- 12 LeadSee Scanned DocumentMP-[facility] [address] DO Work Phone: Office Visit (Cardiology)on 72-60-8332Mykokp-up visit Diagnoses/Problems Assessed Essential hypertension (401.9) (I10) [...] Vital Signs Recorded: 26Jun2021 01:28PMRecorded: 26Jun2021 01:06PM Vamcnvjs585, RUE, Pvcymxd293, LUE, Sitting Qiwrmuupf25, R (more content not included)...NormalUH TouchworksTobacco Screening.on 82-27-4370Avvg risk assessmenta) No falls within the last yearSleepy Eye Medical Center-[place] [address] DO Work Phone: Tobacco use status [facility]b) NoMP-[facility]- [place] [address] DO Work Phone: CREATININEon 91-34-0732Qkzhrndnpe [Mass/Vol]0.91 mg/dL Normal0.50 - 1.30[facility] HospitalComment on above:Performed By: #### CREAT #### [address] [id number]-HNRGJLI AM.>60Normal>60[facility] Comment on above:Result Comment: CALCULATIONS OF ESTIMATED GFR ARE PERFORMED USING THE MDRD STUDY EQUATION FOR THE IDMS-TRACEABLE CREATININE METHODS. CLIN CHEM 2007;53:766-72Performed By: #### CREAT #### [address] [id number]-NZC AM.>60Normal>60[facility] Comment on above:Performed By: #### CREAT #### [address] [id number] PANELon 41-29-6335Gsljo gap [Moles/Vol]12 mmol/L Odumzq87 - 20[facility] HospitalComment on above:Performed By: #### ELECT #### [address] [id number] [Moles/Vol]100 mmol/JVxuokd98 - 107[facility] HospitalComment on above:Performed By: #### ELECT #### [address] [id number] (Bld) [Moles/Vol]31 mmol/WWxexhq45 - 32[facility] HospitalComment on above:Performed By: #### ELECT #### [address] [id number] [Moles/Vol]3.9 mmol/LNormal3.5 - 5.3[facility] Va Medical CenterComment on above:Performed By: #### ELECT #### [address] [id number] [Moles/Vol]139 mmol/MYjvxbm423 - 145[facility] HospitalComment on above:Performed By: #### ELECT #### [address] [id number] NITROGENon 17-15-2017Nmkh nitrogen [Mass/Vol]19 mg/dL Normal6 - 23[facility] HospitalComment on above:Performed By: #### UREA #### [address] [id number] Vital Signs Date TimeVital SignValuePerforming KmewdaqviIngfyuof81-53-5867 12:51-0400Body yltzev836.88 cmKaren Hemmer SEATING AND MOBILITY TECHNOLOGIST-C Work Phone: [phone] [place], [place] 4884610-03-2025 12:51-0400 Body mass index (BMI) [Ratio]26.4 kg/g7Yngxv Hemmer SEATING AND MOBILITY TECHNOLOGIST-C Work Phone: [phone] [place], [place] 4884610-03-2025 12:51-0400 Body lsguclnssin36.8 [degF]Ilnda Hemmer SEATING AND MOBILITY TECHNOLOGIST-C Work Phone: [phone] [place], [place] 4884610-03-2025 12:51-0400 Body nherfs43.45 kgKaren Hemmer SEATING AND MOBILITY TECHNOLOGIST-C Work Phone: [phone] [place], [place] 4884610-03-2025 12:51-0400 Diastolic blood uvknohdt76 mm[Hg]Linda Hemmer SEATING AND MOBILITY TECHNOLOGIST-C Work Phone: [phone] [place], [place] 4884610-03-2025 12:51-0400 Heart rate65 /minKaren Hemmer SEATING AND MOBILITY TECHNOLOGIST-C Work Phone: [phone] [place], [place] [id number] 12:51-0400 Respiratory rate16 /minKaren Hemmer SEATING AND MOBILITY TECHNOLOGIST-C Work Phone: [phone] [place], [place] [id number] 12:51-0400 SaO2% (BldA) [Mass fraction]99 %Linda Hemmer SEATING AND MOBILITY TECHNOLOGIST-C Work Phone: [phone] [place], [place] [id number] 12:51-0400 Systolic blood [id number] mm[Hg]Linda Hemmer SEATING AND MOBILITY TECHNOLOGIST-C Work Phone: 1(567)[address] [place], [place] 4884609-19-2025 09:38-0400 Body kvloul704.88 cmNjen Hemmer SEATING AND MOBILITY TECHNOLOGIST-C Work Phone: 1(617)[address] [place], [place] 4884609-19-2025 09:38-0400 Body mass index (BMI) [Ratio]26 kg/u7Fzwep Hemmer SEATING AND MOBILITY TECHNOLOGIST-C Work Phone: 1(752)[address] [place], [place] 4884609-19-2025 09:38-0400 Body fatrkaenuqu18.2 [degF]Linda Hemmer SEATING AND MOBILITY TECHNOLOGIST-C Work Phone: 1(240)[address] [place], [place] 4884609-19-2025 09:38-0400 Body .08 kgLinda Hemmer SEATING AND MOBILITY TECHNOLOGIST-C Work Phone: 1(094)[address] [place], [place] 4884609-19-2025 09:38-0400 Diastolic blood mm[Hg]Linda Hemmer SEATING AND MOBILITY TECHNOLOGIST-C Work Phone: 1(184)[address] [place], [place] 4884609-19-2025 09:38-0400 Heart rate66 /minKaren Hemmer SEATING AND MOBILITY TECHNOLOGIST-C Work Phone: 1(230)[address] [place], [place] 4884609-19-2025 09:38-0400 Respiratory rate16 /minKaren Hemmer SEATING AND MOBILITY TECHNOLOGIST-C Work Phone: 1(972)[address] [place], [place] 4884609-19-2025 09:38-0400 SaO2% (BldA) [Mass fraction]100 %Linda Hemmer SEATING AND MOBILITY TECHNOLOGIST-C Work Phone: 1(543)[address]09-19-2025 09:38-0400 Systolic blood wamaxfzc855 mm[Hg]Linda Hemmer SEATING AND MOBILITY TECHNOLOGIST-C Work Phone: 1(275)[address] [place], [place] 4884608-11-2025 14:32-0400 Body qlbthe832.9 cmAarelis Tuttle MD Work Phone: [facility]08-11-2025 14:32-0400Body mass index (BMI) [Ratio]26.49 kg/d4YqqltBill Tuttle MD Work Phone: [facility]08-11-2025 14:32-0400Body .6 kgBill Tuttle MD Work Phone: [facility]08-11-2025 14:32-0400Diastolic blood laqfcohk52 mm[Hg]Bill Tuttle MD Work Phone: [facility]08-11-2025 14:32-0400Heart rate76 /min Bill Tuttle MD Work Phone: [facility]08-11-2025 14:32-0400Systolic blood aewwbitw311 mm[Hg]Bill Tuttle MD Work Phone: [facility]07-11-2025 14:53-0400Body .88 cmNjen Hemmer SEATING AND MOBILITY TECHNOLOGIST-C Work Phone: 1(948)[address]07-11-2025 14:53-0400 Body mass index (BMI) [Ratio]26.9 kg/w0Mktza Hemmer SEATING AND MOBILITY TECHNOLOGIST-C Work Phone: 1(449)[address]07-11-2025 14:53-0400 Body bujjxvtiryt68.7 [degF]Linda Hemmer SEATING AND MOBILITY TECHNOLOGIST-C Work Phone: 1(406)[address]07-11-2025 14:53-0400 Body swshgi03.26 kgNjen Hemmer SEATING AND MOBILITY TECHNOLOGIST-C Work Phone: 1(400)767-[address] [place], [place] 3397107-11-2025 14:53-0400 Diastolic blood tlyygvto33 mm[Hg]Linda Hemmer SEATING AND MOBILITY TECHNOLOGIST-C Work Phone: 1(991)[address]07-11-2025 14:53-0400 Heart rate65 /minKaren Hemmer SEATING AND MOBILITY TECHNOLOGIST-C Work Phone: 1(195)[address]07-11-2025 14:53-0400 Respiratory rate18 /minKaren Hemmer SEATING AND MOBILITY TECHNOLOGIST-C Work Phone: 1(212)[address]07-11-2025 14:53-0400 SaO2% (BldA) [Mass fraction]98 %Linda Hemmer SEATING AND MOBILITY TECHNOLOGIST-C Work Phone: [facility]07-11-2025 14:53-0400 Systolic blood ixyenayl125 mm[Hg]Linda Hemmer SEATING AND MOBILITY TECHNOLOGIST-C Work Phone: [facility]07-08-2025 09:26-0400 Body uehykx246.9 cmNjen Hemmer PA Work Phone: 1(034)055-[address] [place], [place] [address]Kyrfsprxxj38-36-8175 09:26-0400Body mass index (BMI) [Ratio]27.04 kg/e5Wnuhw Hemmer PA Work Phone: 1(420)210-[address] [place], [place] [address]Wodcuapelz36-79-8676 09:26-0400Body auwoyt54.45 kgNjen Hemmer PA Work Phone: [facility]Ylzdvicffi83-40-2352 09:26-0400Diastolic blood uemfsnfr95 mm[Hg]Linda Hemmer PA Work Phone: [facility]fieldRquuwutjbr81-85-7760 09:26-0400Heart rate72 /min Linda Hemmer PA Work Phone: [facility]fieldJvlqslatct70-27-3528 09:26-0400Respiratory rate16 /minNjen Hemmer PA Work Phone: [facility]fieldSewiquaayj43-62-0681 09:26-0747WsT4% (BldA) [Mass fraction]98 %Linda Hemmer PA Work Phone: [facility]fieldVnfkfmcgoq07-72-4004 09:26-0400Systolic blood hxabtziv313 mm[Hg]Linda Hemmer PA Work Phone: [facility]fieldVymilyedsw96-86-7632 09:35-0400Body ttydep564.88 [facility]06[facility]20[facility] 09:35-0400Body mass index (BMI) [Ratio]27.3 kg/n7LlbfsfhlwAshtabula County Medical Center06-28-2025 09:35-0400Body ligetjswdsn31.7 [degF][facility]06-28-2025 09:35-0400Body bahglh18.28 [facility]06-28-2025 09:35-0400Diastolic blood xahhjuwt61 mm[Hg][facility]06-28-2025 09:35-0400 Heart rate73 /[facility]06-28-2025 09:35-0400 Respiratory rate18 /[facility]06-28-2025 09:35-0400 SaO2% (BldA) [Mass fraction]97 %[facility]06-28-2025 09:35-0400Systolic blood rvjzrtfa183 mm[Hg][facility] 02-10-2025 10:48-0400Diastolic blood mm[Hg][facility]06-19-2025 10:48-0400Heart rate77 /[facility] 02-10-2025 10:48-0400Respiratory rate18 /[facility] 02-10-2025 10:48-8639XwP5% (BldA) [Mass fraction]100 %[facility]06-19-2025 10:48-0400Systolic blood jbwkihhb761 mm[Hg][facility]06-19-2025 09:16-0400Body pqfqyu616.88 cmAs[facility]06-19-2025 09:16-0400Body .71 [facility]05-30-2025 15:04-0400Body ypnuqs703.88 cmAs[facility]05-30-2025 15:04-0400Body mass index (BMI) [Ratio]27.9 kg/s5TivvfugwrAshtabula County Medical Center05-30-2025 15:04-0400Body lajtmabbxqp79.2 [degF][facility]05-30-2025 15:04-0400Body fuhhro38.44 [facility]05-30-2025 15:04-0400Diastolic blood sxndiizd31 mm[Hg] [facility]05-30-2025 15:04-0400Heart rate62 /[facility]05-30-2025 15:04-0400Respiratory rate18 /[facility]05-30-2025 15:04-0670RiR3% (BldA) [Mass fraction]98 % [facility]05-30-2025 15:04-0400Systolic blood syjsskbi116 mm[Hg][facility]04-17-2025 15:34-0400Body omfics377.9 cm Eulalio Martinez DO Work Phone: [phone]fieldLkexxnhloe14-35-0469 15:34-0400Body mass index (BMI) [Ratio]28.21 kg/k5LbqxzEulalio Martinez DO Work Phone: 1(128)9-[address] [place], [place] [address]Jixlidezaw16-06-5756 15:34-0400Body .35 kgEulalio Martinez DO Work Phone: 1(773)[address] [place], [place] 9974502-06-2025 15:52-0500Body .9 cmEulalio Martinez DO Work Phone: 1(989)[address] [place], [place] 9974502-06-2025 15:52-0500Body mass index (BMI) [Ratio]28.35 kg/t7PqncnEulalio Martinez DO Work Phone: 1(990)[facility] [place], [place] [address]Mlolmjocfk14-36-3077 15:52-0500Body temperature 97.39 [degF]Eulalio Martinez DO Work Phone: 1(923)[address] [place], [place] 9974502-06-2025 15:52-0500Body fireyu95.8 kg Eulalio Martinez DO Work Phone: [facility]fieldRvfmgnxrhh54-52-5265 16:43-0500Body prwpwi349.9 cmStephen Ebbitt PA-C Work Phone: [facility]01-28-2025 16:43-0500Body mass index (BMI) [Ratio]27.81 kg/l1Ehqeewp Ebbitt PA-C Work Phone: [facility]01-28-2025 16:43-0500Body wavtdn60 kg Tony Ebbitt PA-C Work Phone: [facility]01-28-2025 16:43-0500Diastolic blood yuqpvaln81 mm[Hg]Tony Ebbitt PA-C Work Phone: [facility]01-28-2025 16:43-0500Systolic blood bivcirwg669 mm[Hg]Tony Frank PA-C Work Phone: [facility]01-22-2025 15:28-0500Body .9 cmLinda Hemmer PA Work Phone: [facility] CenterGfvzzvbzzm49-69-4398 15:28-0500Body mass index (BMI) [Ratio]28.4 kg/d2Ephos Hemmer PA Work Phone: [facility] CenterNdqjvdkqea98-65-7413 15:28-0500Body temperature 97.7 [degF]Linda Hemmer PA Work Phone: [facility] CenterXkwubqncgv98-13-7277 15:28-0500Body .98 kgLinda Hemmer PA Work Phone: [facility] CenterHrolcdmkfy86-96-5056 15:28-0500Diastolic blood tbaikxna77 mm[Hg]Linda Hemmer PA Work Phone: [facility] CenterNbtonzehcl35-90-1027 15:28-0500Heart rate64 /min Linda Hemmer PA Work Phone: [facility] CenterDcueyxvohs59-39-5698 15:28-0500Respiratory rate16 /minNjen Hemmer PA Work Phone: noSaint [facility] CenterDrmuqyxljw32-17-0964 15:28-4996GjC0% (BldA) [Mass fraction]98 %Linda Hemmer PA Work Phone: [facility] CenterOsohblwkqm53-84-2144 15:28-0500Systolic blood ejzlqxfl937 mm[Hg]Linda Hemmer PA Work Phone: [facility] CenterTkruedvviw62-42-6601 11:04-0500Body xzjdum191.9 cmEulalio Martinez DO Work Phone: noSaint [facility] CenterKmjfmectdm24-39-3197 11:04-0500Body mass index (BMI) [Ratio]27.4 kg/i7UqduyEulalio Martinez DO Work Phone: [facility] Ddfsbsoqnq67-54-2182 11:04-0500Body temperature 97.39 [degF]Eulalio Martinez DO Work Phone: 1(957)[address] [place], [place] 9974512-31-2024 11:04-0500Body jgtezz52.63 kgEulalio Martinez DO Work Phone: 1(183)[address] [place], [place] 9974512-13-2024 15:24-0500Body bexhwv784.88 cmSedrick Ye MD Work Phone: [facility]12-13-2024 15:24-0500 Body wioupg92.98 kgSedrick Ye MD Work Phone: [facility]12-03-2024 15:52-0500 Body klqobl714.9 cmEulalio Martinez DO Work Phone: 1(616)[address] [place], [place] 9974512-03-2024 15:52-0500Body mass index (BMI) [Ratio]27.4 kg/p3DnazyEulalio Martinez DO Work Phone: 1(604)[facility] [place], [place] [address]Gkignxobek05-49-8237 15:52-0500Body .63 kgEulalio Martinez DO Work Phone: 1(557)[address] [place], [place] 9974510-22-2024 15:49-0400Body upsczx607.9 cmEulalio Martinez DO Work Phone: 1(723)[address] [place], [place] 9974510-22-2024 15:49-0400Body mass index (BMI) [Ratio]27.4 kg/p7DucezEulalio Martinez DO Work Phone: 1(985)[address] [place], [place] 9974510-22-2024 15:49-0400Body rvtjaj57.63 kgEulalio Martinez DO Work Phone: 1(774)[address] [place] [address]-18-2024 09:58-0400Body xioyhf396.9 Rama Haque MD Work Phone: [facility]fieldBnedcueicv02-04-7237 09:58-0400Body mass index (BMI) [Ratio]27.4 kg/a5RemsyjGrace Haque MD Work Phone: [facility]fieldIznlpqhrnb20-59-0647 09:58-0400Body odijtw10.63 kgGrace Haque MD Work Phone: [place] [address]Cohfhbeoou40-06-7576 16:21-0400Body lkioyl018.9 cmSedrick Lyons SEATING AND MOBILITY TECHNOLOGIST Work Phone: [facility]fieldMoguvifxth92-43-7254 16:21-0400Body mass index (BMI) [Ratio]27.4 kg/m2Sedrick Lyons SEATING AND MOBILITY TECHNOLOGIST Work Phone: [facility]fieldWdcsdjhtwx71-31-2289 16:21-0400Body kksius62.63 kgSedrick Lyons SEATING AND MOBILITY TECHNOLOGIST Work Phone: [facility]fieldTtwllctloz92-59-0591 16:21-0400Diastolic blood mm[Hg]Sedrick Lyons SEATING AND MOBILITY TECHNOLOGIST Work Phone: [facility]fieldGfucwfacav17-55-1529 16:21-0400Heart rate67 /min Sedrick Lyons SEATING AND MOBILITY TECHNOLOGIST Work Phone: [facility]fieldQecrmocwdu89-44-5465 16:21-0689CmA1% (BldA) [Mass fraction]98 %Sedrick Lyons SEATING AND MOBILITY TECHNOLOGIST Work Phone: [facility]fieldUdvbvozksq03-25-6593 16:21-0400Systolic blood emxdwalv973 mm[Hg]Sedrick Lyons SEATING AND MOBILITY TECHNOLOGIST Work Phone: [facility]fieldDhjujhflvo97-50-0441 09:21-0400Body jxppoq460.9 Rama Haque MD Work Phone: [facility]fieldGpvsebzper08-34-1586 09:21-0400Body mass index (BMI) [Ratio]27.12 kg/w1CouocvGrace Haque MD Work Phone: [facility]fieldDfijoizvzl09-73-1341 09:21-0400Body exbkgj18.72 kgGrace Haque MD Work Phone: [facility]fieldDghcncnkmx92-01-5696 09:21-0400Diastolic blood rzneizou26 mm[Hg]Grace Haque MD Work Phone: [facility]fieldGnjdkmmdkd32-15-0620 09:21-0400Systolic blood npvvtned723 mm[Hg]Grace Haque MD Work Phone: [facility] springfieldUqfqwytlnj79-67-2040 14:57-0400Body .88 cmMD Sedrick Ye Work Phone: 1(300)[address]08-30-2024 14:57-0400 Body mass index (BMI) [Ratio]26.7 kg/m2MD Sedrick Ye Work Phone: 1(182)090-[address] [place], [place] 4713008-30-2024 14:57-0400 Body ielbqbgslas74.3 [degF]MD Sedrick Ye Work Phone: 1(589)[address]08-30-2024 14:57-0400 Body miyfqk16.35 kgMD Sedrick Ye Work Phone: 1(279)[address]08-30-2024 14:57-0400 Diastolic blood zefnlios58 mm[Hg]MD Sedrick Ye Work Phone: 1(162)[address]08-30-2024 14:57-0400 Heart rate62 /minMD Sedrick Ye Work Phone: 1(540)[address]08-30-2024 14:57-0400 Respiratory rate16 /minMD Sedrick Ye Work Phone: 1(504)[address]08-30-2024 14:57-0400 SaO2% (BldA) [Mass fraction]97 %MD Sedrick Ye Work Phone: 1(204)[address]08-30-2024 14:57-0400 Systolic blood rrolcjrd437 mm[Hg]MD Sedrick Ye Work Phone: 1(252)796-[address] [place], [place] 4713006-07-2024 14:12-0400 Body .9 cmAbdul Watkizzyr Work Phone: [facility]06-07-2024 14:12-0400Body mass index (BMI) [Ratio]27.69 kg/a4Kuttr Roger LYNCH Work Phone: [facility]06-07-2024 14:12-0400Body .6 kgAbdul Watkizzyr Work Phone: [facility]06-07-2024 14:12-0400Diastolic blood mm[Hg]Bill Tuttle MD Work Phone: [facility]06-07-2024 14:12-0400Heart rate66 /min Bill Tuttle MD Work Phone: [facility]06-07-2024 14:12-0681CuR2% (BldA) [Mass fraction]97 %Bill Tuttle MD Work Phone: [facility]06-07-2024 14:12-0400Systolic blood gczlrzca921 mm[Hg]Bill Tuttle MD Work Phone: [facility]05-31-2024 14:01-0400Body vosuer076.88 cmMD Sedrick Ye Work Phone: 1(353)[address]05-31-2024 14:01-0400 Body mass index (BMI) [Ratio]27.5 kg/m2MD Sedrick Ye Work Phone: 1(754)[address]05-31-2024 14:01-0400 Body bsdbqdhyemn99.4 [degF]MD Sedrick Ye Work Phone: 1(146)[address]05-31-2024 14:01-0400 Body hsipsl62.07 kgMD Sedrick Ye Work Phone: 1(248)[address]05-31-2024 14:01-0400 Diastolic blood yaeqreev28 mm[Hg]MD Sedrick Ye Work Phone: 1(828)[address]05-31-2024 14:01-0400 Heart rate71 /minMD Sedrick Ye Work Phone: 1(408)[address]05-31-2024 14:01-0400 Respiratory rate20 /minMD Sedrick Ye Work Phone: 1(937)[address]05-31-2024 14:01-0400 SaO2% (BldA) [Mass fraction]99 %MD Sedrick Ye Work Phone: 1(723)[address]05-31-2024 14:01-0400 Systolic blood nefkohzh639 mm[Hg]MD Sedrick Ye Work Phone: [facility]12-07-2023 13:23-0500 Body timsao663.9 Deric Tuttle MD Work Phone: [facility]12-07-2023 13:23-0500Body gtiqxm61.91 kgBill Tuttle MD Work Phone: [facility]12-07-2023 13:23-0500Diastolic blood wrkumvvk92 mm[Hg]Bill Tuttle MD Work Phone: [facility]12-07-2023 13:23-0500Heart rate71 /min Bill Tuttle MD Work Phone: [facility]12-07-2023 13:23-0500Systolic blood oxnfjbfl863 mm[Hg]Bill Tuttle MD Work Phone: [facility]05-03-2023 14:11-0400Body pxhkte909.9 Deric Tuttle MD Work Phone: [facility]05-03-2023 14:11-0400Body erbnko16.72 kgBill Tuttle MD Work Phone: [facility]05-03-2023 14:11-0400Diastolic blood ikexrurr83 mm[Hg]Bill Tuttle MD Work Phone: [facility]05-03-2023 14:11-0400Systolic blood uanicjhl180 mm[Hg]Bill Tuttle MD Work Phone: [facility]02-23-2023 15:10-0500Body .9 Deric Tuttle MD Work Phone: [facility]02-23-2023 15:10-0500Body igfnjs86.63 kgBill Tuttle MD Work Phone: [facility]02-23-2023 15:10-0500Diastolic blood twkcixue70 mm[Hg]Bill Tuttle MD Work Phone: [facility]02-23-2023 15:10-0500Heart rate75 /min Bill Tuttle MD Work Phone: [facility]02-23-2023 15:10-2002BoR2% (BldA) [Mass fraction]98 %Bill Tuttle MD Work Phone: [facility]02-23-2023 15:10-0500Systolic blood rahbgocc713 mm[Hg]Bill Tuttle MD Work Phone: [facility]01-20-2023 15:12-0500Body .9 cmAarelis Tuttle MD Work Phone: [facility]01-20-2023 15:12-0500Body npzizc32.53 kgBill Tuttle MD Work Phone: [facility]01-20-2023 15:12-0500Diastolic blood ixtfmhus73 mm[Hg]Bill Tuttle MD Work Phone: [facility]01-20-2023 15:12-0500Heart rate79 /min Bill Tuttle MD Work Phone: [facility]01-20-2023 15:12-1080WnJ1% (BldA) [Mass fraction]98 %Bill Tuttle MD Work Phone: [facility]01-20-2023 15:12-0500Systolic blood dzultxol270 mm[Hg]Bill Tuttle MD Work Phone: [facility]12-08-2022 13:49-0500Diastolic blood ttvqinby68 mm[Hg]Hiren Sena MD Work Phone: [facility]12-08-2022 13:49-0500Heart rate75 /min Hiren Sena MD Work Phone: [facility]12-08-2022 13:49-2501EmD2% (BldA) [Mass fraction]97 %Hiren Sena MD Work Phone: [facility]12-08-2022 13:49-0500Systolic blood uvloxrny643 mm[Hg]Hiren Sena MD Work Phone: [facility]09-16-2022 15:10-0400Body .58 kgBill Tuttle MD Work Phone: [facility]09-16-2022 15:10-0400Diastolic blood jigwnfkx83 mm[Hg]Bill Tuttle MD Work Phone: [facility]09-16-2022 15:10-0400Heart rate72 /min Bill Tuttle MD Work Phone: [facility]09-16-2022 15:10-9056XbY4% (BldA) [Mass fraction]98 %Bill Tuttle MD Work Phone: [facility]09-16-2022 15:10-0400Systolic blood rvijpgsy228 mm[Hg]Bill Tuttle MD Work Phone: [facility]08-04-2022 14:44-0400Body knqyos716.9 cmAarelis Tuttle MD Work Phone: [facility]08-04-2022 14:44-0400Body cdtqgu70.45 kgBill Tuttle MD Work Phone: [facility]08-04-2022 14:44-0400Diastolic blood qapnggvj66 mm[Hg]Bill Tuttle MD Work Phone: [facility]08-04-2022 14:44-0400Heart rate70 /min Bill Tuttle MD Work Phone: [facility]08-04-2022 14:44-0400Respiratory rate 18 /minBill Tuttle MD Work Phone: [facility]08-04-2022 14:44-6850OeL3% (BldA) [Mass fraction]98 %Bill Tuttle MD Work Phone: [facility]08-04-2022 14:44-0400Systolic blood iitrexph134 mm[Hg]Bill Tuttle MD Work Phone: [facility]07-29-2022 10:27-0400Body ufubwc021.9 cmPolina Rogers CHILD CARE PROVIDER.[facility] Work Phone: [facility]07-29-2022 10:27-0400Body ksensw04.72 kgBarbara Mccloud CHILD CARE PROVIDER.[facility] Work Phone: [facility]07-29-2022 10:270400Diastolic blood mm[Hg]Barbara Mccloud CHILD CARE PROVIDER.[facility] Work Phone: [facility]07-29-2022 10:0400Heart rate56 /min Barbara Mccloud CHILD CARE PROVIDER.[facility] Work Phone: [facility]07-29-2022 10:27-0400Systolic blood mm[Hg]Barbara Mccloud APRN.[facility] Work Phone: [facility]01-19-2022 14:04-0500Body nohlpw520.88 cmKi E Ye Work Phone: 1(291) [phone]-Lzkci [facility] DO Work Phone: 1(787) 574-924001-19-2022 14:04-0500Body mass index (BMI) [Ratio] 27.53 kg/m2Kitrish E Ye Work Phone: 1(697) [phone]-Nnxkk [facility] DO Work Phone: 1(509) 349-400201-19-2022 14:04-0500Body surface area Derived from formula2.14 m2Kim E Ye Work Phone: 1(983) [phone]-Yosjj [facility] DO Work Phone: 1(154) 382-539901-19-2022 14:04-0500Body tzycpb20.08 kgKim E Ye Work Phone: 1(115) [phone]-Vvsdg [facility] DO Work Phone: 1(309) 284-878901-19-2022 14:04-0500Diastolic blood pnadedul64 mm[Hg] Sedrick Ye Work Phone: 1(314) [phone]-Ccehl [facility] DO Work Phone: 1(474) 300-201901-19-2022 14:04-0500Heart rate95 /minKitrish Ye Work Phone: 1(209) [phone]-Llvpz [facility] DO Work Phone: 1(994) 530-336901-19-2022 14:04-0500Systolic blood mm[Hg] Sedrick Ye Work Phone: 1(795) [phone]-Kdrsi [facility] DO Work Phone: 1(367) 445-599011-02-2021 13:28-0400Diastolic blood vzwegcve05 mm[Hg] Sedrick Ye Work Phone: 1(374) [phone]-Uhgdo [facility] DO Work Phone: 1(702) 517-960511-02-2021 13:28-0400Systolic blood usugqgim251 mm[Hg] Sedrick Ye Work Phone: 1(897) [phone]-Bzrql [facility] DO Work Phone: 1(721) 863-601211-02-2021 13:06-0400Body jilvre724.88 cmKim Sarabjit Ye Work Phone: 1(928) [phone]-Wocoe [facility] DO Work Phone: 1(992) 490-773011-02-2021 13:06-0400Body mass index (BMI) [Ratio] 27.94 kg/m2Kitrish Ye Work Phone: 1(373) [phone]-Kgylb [facility] DO Work Phone: 1(928) 519-575611-02-2021 13:06-0400Body surface area Derived from formula2.16 m2Kitrish Ye Work Phone: 1(245) [phone]-Denaw [facility] DO Work Phone: 1(789) 572-485711-02-2021 13:06-0400Body onnlbz00.44 kgKim Sarabjit Ye Work Phone: 1(627) [phone]-Gdtxi [facility] DO Work Phone: 1(691) 507-712411-02-2021 13:06-0400Diastolic blood mm[Hg]Sedrick Ye Work Phone: mp735-2883EW-Cnywm [facility] DO Work Phone: 1(857) 656-902111-02-2021 13:06-0400Heart rate92 /minKitrish Ye Work Phone: [phone]-Uhaoj [facility] DO Work Phone: 1(205) 959-559111-02-2021 13:06-0400Systolic blood sjfbofsk254 mm[Hg] Sedrick Ye Work Phone: [phone]-Nccfg [facility] DO Work Phone: Encounters Encounter DateEncounter TypeCare ProviderFacilityStart: 06-24-2025 End: 30-44-3449Hjkoxfddu Result EncounterGeneric External Data ProviderNOMS External Department UnsolicitedStart: 06-24-2025 End: 60-29-8180Iyvjwzitd Result EncounterGeneric External Data ProviderNOMS External Department UnsolicitedStart: 06-13-2025 End: 11-28-0227svtratabnqXJGNQ R WATTARFacility:[facility]ertart: 06-08-2025 End: 71-04-8623Qviymxucy Result EncounterGeneric External Data ProviderNOMS External Department UnsolicitedStart: 06-08-2025 End: 34-38-1717Mlpkuasuy Result EncounterGeneric External Data ProviderNOMS External Department UnsolicitedStart: 00-59-5684Lhboosmzdz RecurringChristian Carlos II [facility] Work Phone: Start: 05-27-2025 End: 18-96-2868qrwuykuupsEdnrpRed CHEUNG Work Phone: [facility] Work Phone: Start: 05-27-2025 End: 60-02-6954Petdkcn encounter procedureChristian Carlos II [facility] Work Phone: Start: 05-26-2025 End: 24-26-5077Upmwouxmv Result EncounterGeneric External Data ProviderNOMS External Department UnsolicitedStart: 05-26-2025 End: 91-59-9410Klvzbkong Result EncounterGeneric External Data ProviderNOMS External Department UnsolicitedStart: 05-19-2025 End: 15-63-0929Fnektsrhn Result EncounterGeneric External Data ProviderNOMS External Department UnsolicitedStart: 05-19-2025 End: 64-84-2164Cinygkkvd Result EncounterGeneric External Data ProviderNOMS External Department UnsolicitedStart: 05-16-2025 End: 40-54-5531Sapiqocpj Result EncounterGeneric External Data ProviderNOMS External Department UnsolicitedStart: 05-16-2025 End: 11-45-4507Xqasmaqvj Result EncounterGeneric External Data ProviderNOMS External Department UnsolicitedStart: 79-05-1860Xwthvlokzi RecurringChristian Carlos II [facility] Work Phone: Start: 79-86-0951Uaw-patient / Non-visitChristian Carlos II [facility] Work Phone: Start: 05-13-2025 End: 08-69-9301uqaycszkmoUvmji Hemmer [facility] Work Phone: [facility] Work Phone: Start: 05-13-2025 End: 00-39-7632Yitpjhy encounter procedureGracie Daily NP-[facility] Work Phone: Start: 05-12-2025 End: 26-35-3929Kscyoppo Result EncounterChristian Carlos DO Work Phone: noms External Department UnsolicitedStart: 05-12-2025 End: 51-80-8652Tkfljxlu Result EncounterChristian Carlos DO Work Phone: noms External Department UnsolicitedStart: 05-09-2025 End: 79-48-7813Sunkljtpi Result EncounterGeneric External Data ProviderNOMS External Department UnsolicitedStart: 05-09-2025 End: 90-11-7650Ggfpzuuda Result EncounterGeneric External Data ProviderNODE External Department UnsolicitedStart: 04-04-2025 End: 76-86-8149Bhnitht encounter procedureIta Tuttle MD Work Phone: CardiologyComment on above:PAF (paroxysmal atrial fibrillation) (HCC) (Primary Dx); Atrial fibrillation, persistent (HCC); Benign essential HTN; Hypertension, unspecified type; Tachycardia induced cardiomyopathy (HCC)Start: 04-04-2025 End: 66-84-8399rvwpfzoydpRDKQT R WATTARFacility:[facility]ertart: 03-17-2025 End: 78-17-3758Tvumapeml encounterLinda PIEDRA Work Phone: noms CI FMStart: 51-79-5897Lmdfsxwssm RecurringChristian [facility]Gall[facility] Work Phone: Start: 03-04-2025 End: 72-94-5175chvfplypcbWjotl Hemmer SEATING AND MOBILITY TECHNOLOGIST-C Work Phone: [facility] Work Phone: Start: 03-04-2025 End: 09-65-1032Gbskrtz encounter procedureChristian Carlos [facility] Work Phone: Start: 03-01-2025 End: 17-62-7868Vnncma flowsKirt PIEDRA Work Phone: noMS CI FMStart: 03-01-2025 End: 55-60-1596Xgnlgd flowsKirt PIEDRA Work Phone: noMS CI FMStart: 03-01-2025 End: 03-45-5371Isbeolo encounter statusLinda PIEDRA Work Phone: no[facility] Work Phone: Start: 03-01-2025 End: 65-89-3244Dzbrnfaj preventive med est patient 65yrs& olderLinda PIEDRA [...] for malignant neoplasm of prostateStart: 03-01-2025 End: 86-38-9516xolpjgnnzbCMOUMRed Rivera AvailableStart: 02-19-2025 End: 16-43-8331fubospqblpFKNBrecksville VA / [facility] Work Phone: Start: 02-19-2025 End: 06-31-9376Gzhtpsh encounter procedureHannah Quarles CHILD CARE PROVIDERST[facility] Work Phone: Start: 02-10-2025 End: 91-47-1283Cevzgpqw Result EncounterChristian Carlos DO Work Phone: noms External Department UnsolicitedStart: 02-10-2025 End: 59-69-7108Fkxueqga Result EncounterChristian Carlos DO Work Phone: noms External Department UnsolicitedStart: 02-10-2025 End: 60-40-2043Jknhauadp to same day surgery centerChristian Carlos II DO-CT Scan Main [place] Work Phone: Start: 02-10-2025 End: 38-10-3834sgwlnokzvmLrcih HemmerFacility:[facility] Start: 01-21-2025 End: 63-55-7459bydbkjobimTGKBrecksville VA / [facility] Work Phone: Start: 01-21-2025 End: 45-10-7689Hzajqjs encounter procedureEvangelical [facility] Work Phone: Start: 01-13-2025 End: 87-93-8872Dehvddax Result EncounterTimmoise Carlos DO Work Phone: noms External Department UnsolicitedStart: 01-13-2025 End: 56-22-8757Jkpqtswo Result EncounterTimmoise Carlos DO Work Phone: noms External Department UnsolicitedStart: 01-01-2025 End: 84-22-7193QstpasAaflg R Wattar MD Work Phone: CardiologyComment on above:Refill RequestStart: 12-09-2024 End: 28-27-5761Tphfvpi encounter procedureEulalio Martinez DO Work Phone: [facility] NB ORTHOComment on above:S/P right knee arthroscopy (Primary Dx)Start: 12-09-2024 End: 69-49-7493layueksvdaRZRQY A BROWNNot AvailableStart: 12-09-2024 End: 22-67-7085Djmsqn flowsNoelle Martinez DO Work Phone: [facility] ORTHOStart: 12-09-2024 End: 31-83-0776Woxlcj Matt Martinez DO Work Phone: [facility] ORTHOStart: 11-30-2024 End: 09-62-6309hdxdeozbuaSgx E Knight MD Work Phone: [facility] Work Phone: Start: 11-30-2024 End: 67-63-3600Dzyhuwbq Ezequiel Ye MD Work Phone: [facility] [address] Work Phone: start: 20-67-6672Hlbfmnbopr Joanne Ye MD Work Phone: [facility] Acute Work Phone: Start: 11-09-2024 End: 67-22-5528tdcstxcnykMJGAG M HEMMERNot AvailableStart: 10-28-2024 End: 17-18-6705gqrlopgaibMNTBS A BROWNNot AvailableStart: 09-30-2024 End: 51-10-4011Muckwle encounter procedureEulalio Martinez DO Work Phone: [facility] NB ORTHOComment on above:Left hand pain (Primary Dx); S/P right knee arthroscopy; Right knee pain, unspecified chronicityStart: 09-30-2024 End: 41-03-1630uhlkafshdiKQOWV A BROWNNot AvailableStart: 09-30-2024 End: 42-63-1499gaynnbaxbxFCWLJ A BROWNNot AvailableStart: 09-27-2024 End: 27-46-4599PepitrAomui R Wattar MD Work Phone: CardiologyComment on above:Refill RequestStart: 09-21-2024 End: 18-31-4236vswbzctxwgTZYGV R WATTARFacility:[facility] HospitalStart: 09-21-2024 End: 02-24-8730Rnktpfu encounter procedureSisma Armstrong PA-C Work Phone: CardiologyComment on above:Primary hypertension (Primary Dx); PAF (paroxysmal atrial fibrillation) ([facility]); Coronary artery calcificationStart: 09-15-2024 End: 19-37-3504Mhiqfq outpatient visit 15 minutesLinda PIEDRA Work Phone: [facility] CI FMComment on above:Acute non-recurrent maxillary sinusitis (Primary Dx)Start: 09-15-2024 End: 74-79-9973tkchtkelclULUYVRed Rivera AvailableStart: 08-24-2024 End: 20-85-9112Juilmn flowsheetEulalio Jojo Mahamed DO Work Phone: [phone] ORTHOStart: 08-24-2024 End: 66-02-6281Krbvwf flowsheetEulalio Martinez DO Work Phone: [phone] ORTHOStart: 08-24-2024 End: 00-15-3409Gnzjafe encounter procedureEulalio Martinez DO Work Phone: [phone] NB ORTHOComment on above:S/P right knee arthroscopy (Primary Dx)Start: 08-24-2024 End: 54-12-9207nrzzdwmtriFTWCH A BROWNNot AvailableStart: 07-30-2024 End: 42-67-3640zkjmswaotbPDXJU A BROWNNot AvailableStart: 07-29-2024 End: 85-22-1816saxmusrugiMNBOR A BROWNNot AvailableStart: 07-28-2024 End: 89-36-1207vpbzukqmmyFOROI A BROWNNot AvailableStart: 07-28-2024 End: 87-52-9075Onaytk Mitchmoise Guillermo Carlos DO Work Phone: NOSQ External Department UnsolicitedStart: 07-27-2024 End: 96-04-2933Uvwtgvq encounter procedureEulalio Jojo Mahamed DO Work Phone: [facility] NB ORTHOComment on above:Pre-op testingStart: 07-27-2024 End: 68-71-3252Wryldwn encounter statusEulalio Jojo Mahamed DO Work Phone: [facility] Work Phone: Start: 07-27-2024 End: 39-14-3949nrlskmamogHUQCU Jojo BROWNNot AvailableStart: 07-27-2024 End: 92-23-2878Isdatr flowsheetEulalio Martinez DO Work Phone: [facility] ORTHOStart: 07-27-2024 End: 33-34-7847Spieac flowshectorEulalio Jojo Mahamed DO Work Phone: [facility] ORTHOStart: 07-24-2024 End: 66-30-3864dgbiwwaetoPDB STAFFFacility:[facility] Start: 06-29-2024 End: 57-12-7464Mvlrwkopd Result EncounterLinda PIEDRA Work Phone: [facility] External Department UnsolicitedStart: 06-29-2024 End: 90-73-5597Rlojmikrj Result EncounterLinda PIEDRA Work Phone: [facility] External Department UnsolicitedStart: 06-29-2024 End: 32-87-6066QdixloGwmfaDoris Tuttle MD Work Phone: CardiologyComment on above:Refill RequestStart: 06-29-2024 End: 69-42-7210Bjzbtvgfu encounterLinda PIEDRA Work Phone: [facility] CI FMStart: 06-25-2024 End: 96-76-4956Nzdwcoqel encounterKayla Rose SCORING MACHINE OPERATOR Work Phone: [facility] CI FMStart: 06-15-2024 End: 43-65-0147Ukiubvq encounter Narcisa Martinez DO Work Phone: [facility] NB ORTHOComment on above:Tear of medial meniscus of right knee, current, unspecified tear type, subsequent encounter (Primary Dx) Start: 06-15-2024 End: 91-26-5006rycfosvvwhKLZDJ A BROWNNot AvailableStart: 06-15-2024 End: 47-91-1784Axlzlp flowsNoelle Uribe Mahamed DO Work Phone: [facility] ORTHOStart: 06-15-2024 End: 10-12-0369Qgjmvf flowsNoelle Martinez DO Work Phone: [facility] ORTHOStart: 06-11-2024 End: 63-12-4381Mnoaow follow up visit related to original Pari Bucio MD Work Phone: [facility] ST GENSComment on above:Screening for malignant neoplasm of colon (Primary Dx)Start: 06-11-2024 End: 05-40-7799vdgeikudzpZMMFYQ VARGAS VNot AvailableStart: 06-10-2024 End: 75-05-9945Zvlgji outpatient visit 25 minutesSedrick Lyons SEATING AND MOBILITY TECHNOLOGIST Work Phone: [facility] CI FMComment on above:Strain of thoracic back region (Primary Dx); Muscle spasmStart: 06-10-2024 End: 31-25-3885nccjdiegyyJXA C MILLERNot AvailableStart: 06-10-2024 End: 64-13-9800Dckzjd Dayan Lyons SEATING AND MOBILITY TECHNOLOGIST Work Phone: [facility] CI FMStart: 06-10-2024 End: 25-55-9214Tjbtls krishnaSedrick Ethan Lyons SEATING AND MOBILITY TECHNOLOGIST Work Phone: noms CI FMStart: 05-21-2024 End: 62-64-5783Boizhh outpatient new 45 minutesGrace Bucio MD Work Phone: noms ST GENSComment on above:History of colon polyps (Primary Dx); Screening for malignant neoplasm of colonStart: 05-21-2024 End: 86-68-3737jizbzakwgfYSLANR VARGAS VNot AvailableStart: 04-23-2024 End: 56-74-0687wpjoplbxhgTH Sedrick Whipple Ye Work Phone: [facility] Work Phone: Start: 04-23-2024 End: 79-73-2560Cvxnafj encounter procedure Sedrick Cassi Work Phone: [facility] Ambulatory Work Phone: Start: 04-23-2024 End: 66-74-1811Vryridmn Result EncounterIrene Solares SEATING AND MOBILITY TECHNOLOGIST Work Phone: noms External Department UnsolicitedStart: 04-23-2024 End: 66-98-7985Wvsmkirr Result EncounterIrene Solares SEATING AND MOBILITY TECHNOLOGIST Work Phone: noms External Department UnsolicitedStart: 04-23-2024 Registered RecurringMD Sedrick Ye Work Phone: [facility] Work Phone: Start: 04-20-2024 End: 81-33-5438Owjtyzol Result EncounterChristian Carlos DO Work Phone: noms External Department UnsolicitedStart: 04-20-2024 End: 81-26-6212Mgexfirm Result EncounterChristian Carlos DO Work Phone: noms External Department UnsolicitedStart: 02-29-2024 ambulatoryIta Tuttle MD Work Phone: CardiologyStart: 33-00-9576Kgirhsc encounter procedure Ita Tuttle MD Work Phone: CardiologyComment on above:FatigueStart: 02-12-2024 ambulatoryIta Tuttle MD Work Phone: CardiologyStart: 39-51-3088Acfksfj encounter procedure Ita Tuttle MD Work Phone: CardiologyComment on above:VitaminsStart: 01-30-2024 End: 80-53-9203Ucxjdrl encounter procedureIta Tuttle MD Work Phone: CardiologyComment on above:Paroxysmal atrial fibrillation (HCC) (Primary Dx); Atrial fibrillation, persistent (HCC); Benign essential HTN; Hypertension, unspecified type; Prescription refill; Tachycardia induced cardiomyopathy (HCC); Aortic root dilatation (HCC)Start: 01-23-2024 End: 65-36-5793gkgjrnveetGM Sedrick Ye Work Phone: [facility] Work Phone: Start: 01-23-2024 End: 79-04-8077Qodommu encounter procedureMD Sedrick Ye Work Phone: [facility]ulatory Work Phone: Start: 30-56-6292Aqrhoznbhv RecurringMD Sedrick Ye Work Phone: [facility] Work Phone: Start: 00-75-7143AviytdJdqtc R Wattar MD Work Phone: CardiologyComment on above:Refill RequestStart: 51-95-3201Gipsrjzrw encounterIta Tuttle MD Work Phone: CardiologyStart: 07-31-2023 End: 43-74-1759Kemsxcs encounter procedureIta Tuttle MD Work Phone: CardiologyComment on above:Hypertension, unspecified type (Primary Dx); Aortic root dilatation (HCC)Start: 06-02-2023 End: 20-63-1074zupfmxmzcsOoudn M. LueFacility:EU NorwalkStart: 04-14-2023 End: 87-87-7425fcdofnxjrdJfify M. LueFacility:[id number]: 04-09-2023 End: 29-71-2919fagfarrzuzGQA KNIGHTFacility:BAYLStart: 31-06-8756HrksklYmwlwz Godoy CHILD CARE PROVIDER.PRODUCT SAFETY TECHNICIAN, DNP Work Phone: CardiologyComment on above:Refill RequestStart: 16-78-5948zqaxfgwioqOmnwlAlvaro Tuttle MD Work Phone: CardiologyComment on above:Eliquis and Aspirin questionStart: 01-21-2023 End: 42-14-0759vjqkzllitjMHCMH D HIGHLANDERFacility:E8Lpuxf: 12-27-2022 End: 33-69-6415xqhtvkhvisZO SEDRICK YE .Facility:M0Sdvjk: 12-25-2022 End: 64-43-6937Qqvmrqs encounter procedureIta Tuttle MD Work Phone: CardiologyComment on above:Hypertension, unspecified type (Primary Dx)Start: 12-24-2022 End: 31-54-1218zpcvvubiziNPDAC D [facility] HOSPITALANDERFacility:M5Qwwjg: 11-16-2022 End: 03-49-0437pryzjyoyhrEALWRUCJ EBERLYFacility:U8Kjhtt: 12-09-1839Nfnjeqazv encounterHrien Sena MD Work Phone: CardiologyComment on above:Patient QuestionStart: 10-17-2022 End: 19-09-1498sbinlqomawIMZJK R WATTARFacility:[facility] HospitalStart: 10-17-2022 End: 37-17-6959Gbevvfz encounter procedureIta Tuttle MD Work Phone: CardiologyComment on above:Hypertension, unspecified type (Primary Dx)Start: 13-06-4529bmcugfgdlrBalflAlvaro Tuttle MD Work Phone: CardiologyComment on above:NifedipineRefill Request Start: 01-47-5335KmphbbUakvof Godoy APRN.PRODUCT SAFETY TECHNICIAN, DNP Work Phone: CardiologyComment on above:Refill RequestStart: 10-09-2022 End: 77-58-3545pznhsscapzWI SEDRICK YE .Facility:F9Iikbf: 14-10-0526Ztdsbq Ita Tuttle MD Work Phone: CardiologyComment on above:Refill RequestStart: 09-13-2022 End: 05-99-9172Qgqfvbe encounter procedureIta Tuttle MD Work Phone: CardiologyComment on above:Hypertension, unspecified type (Primary Dx)Start: 25-32-8168Nrtsrtyqk encounterIta Tuttle MD Work Phone: CardiologyComment on above:Patient UpdateResultsStart: 08-01-2022 End: 69-14-5359Rscxdmq encounter procedureHiren Sena MD Work Phone: CardiologyComment on above:Atrial fibrillation, persistent (HCC) (Primary Dx); Hypertension, unspecified type; DMITRY (obstructive sleep apnea); Benign essential HTN; S/P ablation of atrial fibrillation; Encounter for current long-term use of anticoagulantsStart: 38-30-9405Euexmbamfo TTAdams Sena MD Work Phone: [facility] DepartmentStart: 81-24-0340Tbrijlhyo PlanTvenecia Sena MD Work Phone: [facility] MAINStart: 78-25-3275xevrhadwqk Hiren Sena MD Work Phone: CardiologyComment on above:portable EKG transmitter machineStart: 05-10-2022 End: 07-24-7244Gsqrfdh encounter procedureIta Tuttle MD Work Phone: CardiologyComment on above:Tachycardia induced cardiomyopathy (HCC) (Primary Dx)Start: 74-17-7909Trxtruvauc Jonathan Sena MD Work Phone: [facility] DepartmentStart: 20-62-3003Vyvxtswjfghulam Sena MD Work Phone: [facility] MAINStart: 73-64-2649Irysbobqdd Jonathan Sena MD Work Phone: [facility] DepartmentStart: 60-61-8095Pzcqfbbyaghulam Sena MD Work Phone: [facility] MAINStart: 41-77-7218lneiqcniwu Bridget LyonPulmonary MedicineStart: 37-83-9415Tsznfjojan Jonathan Sena MD Work Phone: [facility] DepartmentStart: 37-39-7811Kbgfuhjosghulam Sena MD Work Phone: [facility] MAINStart: 29-85-0616itszyzampf Barbara Mccloud APRN.CNP Work Phone: CardiologyComment on above:update on weaning off SotalolEKG transmission machineStart: 26-26-9855C-mail encounter from caregiver Barbara Toledohardt MERLY.PRODUCT SAFETY TECHNICIAN Work Phone: [facility] MAINStart: 23-83-5596nvduboanjh Hiren Sena MD Work Phone: [facility]ENTERStart: 60-67-2060Aojhvi-up encounterHiren Sena MD Work Phone: CardiologyComment on above:Sotalol follow upStart: 03-28-2022 End: 41-66-5099Xqcrsto encounter Junior Tuttle MD Work Phone: CardiologyComment on above:Atherosclerosis (Primary Dx); Ascending aorta dilatation (HCC); Tachycardia induced cardiomyopathy (HCC)Start: 04-55-0985zulyorrktuFhucocgnr Manuel [place] Work Phone: Pulmonary MedicineStart: 01-52-2052xgncszaxhpEeuylk Engelhardt APRN.SADI Work Phone: CardiologyComment on above:Ct scan resultsecho results Start: 66-06-8739S-mail encounter from caregiverBarbara Mccloud APRN.SADI Work Phone: [facility] MAINStart: 03-22-2022 End: 09-65-3237Xfojgoo encounter procedureNagimagda BautistaRogerslizbeth MORELAND.SADI Work Phone: CardiologyComment on above:Atrial fibrillation, persistent (HCC) (Primary Dx); Lung nodule; DMITRY (obstructive sleep apnea)Start: 03-22-2022 End: 51-26-5055Yznvudyzcc hospital visit by physicianApril Li (I-Stat) Work Phone: RadiologyComment on above:Persistent atrial fibrillation (HCC) [I48.19]Start: 75-55-5252Dhafztbeij Jonathan Sena MD Work Phone: [facility] DepartmentStart: 49-84-5685Mojtotkvf Mercedes Sena MD Work Phone: [facility] MAINStart: 01-36-0949Fzylxkekll Jonathan Sena MD Work Phone: [facility] DepartmentStart: 45-62-5128Hwtfclozutino Sena MD Work Phone: [facility] MAINStart: 33-26-8591Gobwllriam Jonathan Sena MD Work Phone: [facility] DepartmentStart: 90-52-0818Afazpaionghulam Sena MD Work Phone: [facility] MAINStart: 61-43-5668Mcllvcmxcx Jonathan Sena MD Work Phone: [facility] DepartmentStart: 31-27-0505Afrrhhfdv Mercedes Sena MD Work Phone: [phone] [facility] MAINStart: 63-45-3869Sublstdmlc Jonathan Sena MD Work Phone: [phone] DepartmentStart: 37-73-4997Yzbcoserrghulam Sena MD Work Phone: [phone] [facility] MAINStart: 59-19-3623Dlydxdtkvt Jonathan Sena MD Work Phone: [phone] DepartmentStart: 98-55-8097Rgwroqvdgtino Sena MD Work Phone: [phone] [facility] MAINStart: 63-85-9052Euhxulemlc Jonathan Sena MD Work Phone: [phone] DepartmentStart: 72-87-1124Zgzrbnzwqtino Sena MD Work Phone: [phone] [facility] MAINStart: 80-61-8856Lqebznbxrp Jonathan Sena MD Work Phone: [phone] DepartmentStart: 60-84-4201Xgborkcazghulam Sena MD Work Phone: [phone] [facility] MAINStart: 88-51-7586Mkxfbmlmad Jonathan Sena MD Work Phone: [phone] DepartmentStart: 38-14-6276Dglastaij Mercedes Sena MD Work Phone: [phone] [facility] MAINStart: 59-62-7816Uqavykmysf Jonathan Sena MD Work Phone: [phone] DepartmentStart: 19-98-5518Amuzwyqvughulam Sena MD Work Phone: [phone] [facility] MAINStart: 83-45-6254Jdnfzzbbbm Jonathan Sena MD Work Phone: [facility] DepartmentStart: 80-34-6172Fjgstjvifamanda Sena MD Work Phone: [facility] MAINStart: 73-63-6540FJ Get Medical AdviceIta Tuttle MD Work Phone: CardiologyComment on above:Mail order doesn t have prescriptionsStart: 88-06-2246Bhvrqfjvcs Jonathan Sena MD Work Phone: [facility] DepartmentStart: 80-35-9331Yucporemmamanda Sena MD Work Phone: [facility] MAINStart: 70-90-6505UyetsmOvkzm R Wattar MD Work Phone: Internal MedicineComment on above:Refill RequestStart: 15-40-7051DjoknsEitxod J Dresing MD Work Phone: CardiologyComment on above:Refill RequestFurosemide needed before vacation tomorrowStart: 24-35-0120Hrvlbbbcap Jonathan Sena MD Work Phone: [facility] DepartmentStart: 93-50-3760Optkyqzfaamanda Sena MD Work Phone: [facility] MAINStart: 15-66-7839Egynuc Only Foreigndiogo Martinez APRN.PRODUCT SAFETY TECHNICIAN Work Phone: cardiologyComment on above:Persistent atrial fibrillation (HCC)Start: 80-11-0116Yxyvjmzsuf Jonathan Sena MD Work Phone: [facility] DepartmentStart: 36-46-3771Wdelhwortamanda Sena MD Work Phone: [facility] MAINStart: 90-47-9971talxppihaq Hiren Sena MD Work Phone: CardiologyComment on above:Resent FMLA paperworkStart: 68-16-0326ujmwrpjcsmMpqtgh J Dresing MD Work Phone: CardiologyComment on above:Return to work dateStart: 61-30-0395Xpqszvraw encounterHiren Sena MD Work Phone: CardiologyComment on above:Post Dc Program Call - Needs Attnchest discomfort after ablationStart: 04-77-0738kpbdpdinwsAykiib J Dresing MD Work Phone: CardiologyComment on above:Transmitter (3 months) Start: 06-88-7501Zkldqgjspk TTMTvenecia Sena MD Work Phone: [facility] DepartmentStart: 41-26-3420Lkijtjgvp PlanTvenecia Sena MD Work Phone: [facility] MAINStart: 52-45-6625mitmnkfknp Hiren Sena MD Work Phone: CardiologyComment on above:Patient Education (PVI) Start: 52-37-6555Rrurpzq encounter procedureKim E Ye Work Phone: [phone]-Dyhst [facility] [address] DO Work Phone: Start: 74-72-1844Muexuwgxa encounterKim E Ye Work Phone: [phone]-Lpxxk [facility] [address] DO Work Phone: Start: 23-08-0453Uouozgm encounter procedureKim E Ye Work Phone: [phone]-Cvahe [facility] [address] DO Work Phone: Start: 86-05-0764Rrmyq UpdateKim E Ye Work Phone: [phone]-Yhrvh [facility] [address] DO Work Phone: Start: 84-71-2831Gmnmyi outpatient visit 25 minutesKim E Ye Work Phone: [phone]-Gmamw [facility] [address] DO Work Phone: Procedures DateProcedureProcedure DetailPerforming ClinicianStart: 38-39-2796FDL CBC WITH AUTO DIFFGeneric External Data ProviderStart: 37-86-6186YUD LDHGeneric External Data ProviderStart: 99-27-8984FYZ CMP (CMP) (FOR REMOTE [facility] USE)Generic External Data ProviderStart: 52-48-8009ABS CBC WITH AUTO DIFFGeneric External Data ProviderStart: 27-24-7583TNK CBC WITH AUTO DIFFGeneric External Data Provider Start: 24-95-1206QCI CBC WITH AUTO DIFFGeneric External Data ProviderStart: 84-33-4536Ilxjuljk screenKaren HemmerComment on above:Result Comment: PERFORMED BY: [facility] [place] [address] PATHOLOGIST CHILD SUPPORT OFFICER DANIELLE QUINONES M.D.Start: 43-13-8982Ckypl of haptoglobin quantitativeTimmoise Carlos DO Work Phone: Start: 58-23-6352AJ scan of spleenKaren Hemmer SEATING AND MOBILITY TECHNOLOGIST-C Work Phone: Start: 39-41-1308DNX SED RATEGeneric External Data ProviderStart: 67-06-0828Acg routine ecg w/least 12 lds i&r onlyCcf Provider Start: 49-47-3053ZMVMSSTWK REQUEST FOR LAB CORPChristian Carlos DO Work Phone: Start: 57-23-7995DVZPIUBTSZC PROFILEChristian Carlos DO Work Phone: Start: 77-22-3691Wsjawtrqytptk metabolic panelChristian Carlos DO Work Phone: Start: 78-50-1494Zstcy immunofixationComment on above: No monoclonality detected.Start: 21-55-2222Mhbi marrow samplingStart: 01-13-2025 Comprehensive metabolic panelChristian Carlos DO Work Phone: Start: 89-98-6443QYEVJLJARGXTK NEOGENOMICChristian Carlos DO Work Phone: Start: 70-99-5546Avejsdeczfnyaa aspir&/inj major jt/bursa w/o usEulalio Martinez DO Work Phone: Start: 09-30-2024 End: 64-39-5828Icjpv hand minimum 3 viewsEulalio Martinez DO Work Phone: Start: 21-83-7835Digpdqfq blood count with white cell differential, automatedTimmoise Carlos DO Work Phone: Start: 26-81-2509Pmmjwgtadgogq metabolic panelChristian Carlos DO Work Phone: Start: 42-02-4912WDGMWGPM STATUS REPORTTimmoise Carlos DO Work Phone: Start: 09-24-9397UM THORACIC SPINE 3VLinda Jansen PA Work Phone: Start: 99-95-7264EVTDXDE D 25 HYDROXY,TOT+D2+D3Mary García Solares SEATING AND MOBILITY TECHNOLOGIST Work Phone: Start: 31-28-0194Bbysdwkpfhqzu metabolic panelTimmoise Carlos DO Work Phone: Start: 63-57-3085Saa routine ecg w/least 12 lds i&r onlyCcf ProviderStart: 96-56-3898VIY screeningDR SEDRICK YE .Comment on above: Performed By: #### PSASC #### [facility] [address] [place] [address] Dr. Gautam VanStart: 20-87-3487Nbdqv 1996 panel - Serum or PlasmaBill Tuttle MD Work Phone: Start: 80-50-6756Fvh routine ecg w/least 12 lds i&r onlyCcf ProviderStart: 54-29-4404DIMFCOJPBI TRANS TELE MEASUREThomas Guillermo Sena MD Work Phone: Start: 90-99-7436CETUPSCTLF TRANS TELE MEASUREThomas Guillermo Sena MD Work Phone: Start: 58-27-4878JFICFTMMCK TRANS TELE MEASUREThomas Guillermo Sena MD Work Phone: [phone]: 20-64-1838BIXMVVTRGD TRANS TELE MEASUREThomas Guillermo Sena MD Work Phone: [phone]: 84-63-8858Bd heart contrast eval cardiac structure&morphNolan Juan CHILD CARE PROVIDER.PRODUCT SAFETY TECHNICIAN Work Phone: [phone]: 51-07-0899Ccvdrhtvpt [Mass/volume] in Serum or PlasmaCcf ProviderStart: 09-62-3030TDUGRJIHKK TRANS TELE MEASUREThomas Guillermo Sena MD Work Phone: [phone]: 57-65-6516QLBZFISNHJ TRANS TELE MEASUREThomas Guillermo Sena MD Work Phone: [phone]: 06-27-1734BNBLKEINWZ TRANS TELE MEASUREThomas Guillermo Sena MD Work Phone: [phone]: 19-11-2463VBVFRPFZOG TRANS TELE MEASUREThomas Guillermo Sena MD Work Phone: [phone]: 69-35-8035CMQGWWPRUA TRANS TELE MEASUREThomas Guillermo Sena MD Work Phone: [phone]: 00-95-9839RSNADQVBKR TRANS TELE MEASUREThomas Guillermo Sena MD Work Phone: [phone]: [id number] TRANS TELE MEASUREThomas Guillermo Sena MD Work Phone: [phone]: 39-34-6327CSQEVEMEIT TRANS TELE MEASUREThomas Guillermo Sena MD Work Phone: [phone]: 56-92-9931HLLGIISQQI TRANS TELE MEASUREThomas Guillermo Sena MD Work Phone: [phone]: 73-56-6119JRHUCVUGIB TRANS TELE MEASUREThomas Guillermo Sena MD Work Phone: [phone]: 95-78-3574GULIPNJPQV TRANS TELE MEASUREThomas Guillermo Sena MD Work Phone: [phone]: 95-25-3054UPRRROMQGD TRANS TELE MEASUREThomas Guillermo Sena MD Work Phone: Start: 21-49-2872OLRPLLMFZH TRANS TELE MEASUREThomas Guillermo Sena MD Work Phone: Start: [id number] TRANS TELE MEASUREThomas Guillermo Sena MD Work Phone: Start: 30-53-9877MYUUCOBSNZ TRANS TELE MEASUREThomas Guillermo Sena MD Work Phone: Start: 22-99-0928EpcnwnjagqkqmycbBkobl: 10-02-2018 ColonoscopyChristian Carlos DO Work Phone: Total colonoscopySedrick Ye Work Phone: Comment on above:08/2009; Plan of Treatment DateCare ActivityDetailAuthorStart: 29-32-2403ZUA Vaccine (1 - 1-dose 75+ series)RSV Vaccine (1 - 1-dose 75+ series)[facility]30 Prostate specific antigen measurementProstate Cancer Screening Discussion [facility]: 99-49-1928Ioxtyhkal for malignant neoplasm of colonNOMS HealthcareStart: 04-37-6748Vojgfgjf ScreeningDiabetes ScreeningHolzer Health System Start: 79-31-7874TVXFWAEB CANCER SCREENING DISCUSSIONPROSTATE CANCER SCREENING DISCUSSIONRegency Hospital [facility]tart: 57-76-3706Utqrtdim specific antigen measurement Prostate Cancer Screening DiscussionRegency Hospital [facility]tart: 78-40-1868Heexv 1996 panel - Serum or PlasmaLipid ScreeningRegency Hospital [facility]tart: 22-82-7680Efrct panelLipid ScreeningRegency Hospital [facility]: 41-07-3629JHZCB SCREENLIPID SCREEN [facility]: 33-30-0123XMZSTUOE CANCER SCREENING DISCUSSIONPROSTATE CANCER SCREENING DISCUSSIONReg[facility] Hospital [facility]: 68-27-7001Lcwphvom Screening Diabetes ScreeningRegency Hospital [facility]tart: 10-02-9872FMXFV SCREENLIPID SCREEN [facility]: 93-45-8772EYOAJOQS CANCER SCREENING DISCUSSIONPROSTATE CANCER SCREENING DISCUSSIONRegency Hospital [facility]: 04-05-2026 End: 70-08-2441Fqyvpey encounter prfxunswp69/12/2026 8:00 AM EDT Office Visit Cardiology [address] [place] [address] [place] [address] [place] [address] yearly follow upCardiologyComment on above:yearly follow up Start: 07-08-2026Medicare Annual Wellness (AWV)Medicare Annual Wellness (AWV) [facility] HealthcareStart: 16-60-0620PLBKGRPI SCREENDIABETES SCREENHolzer Health System Start: 10-48-6058Tjdpeabi ScreeningDiabetes ScreeningRegency Hospital [facility]: 44-63-4279DWKIKRKU SCREENDIABETES SCREENRegency Hospital [facility]: 06-13-2025 End: 45-03-7188Dfxigqq encounter /20/2025 10:30 AM EDT Office Visit Cardiology [address] [place], [place] [id number] PAF (paroxysmal atrial fibrillation) (HCC) [I48.0]CardiologyComment on above:PAF (paroxysmal atrial fibrillation) (HCC) [I48.0]Start: 83-67-3826UxwwynfyzMain Campus Medical Centertart: 31-27-1135RqvbsxjulMain Campus Medical Centertart: 04-25-2025 Influenza vaccinationBEAVER VALLEY [facility]OS[facility]ITAL HealthcareStart: 04-04-2025 End: 38-53-7554Bcesgsq encounter rxnmebwop67/11/2025 2:30 PM EDT Office Visit Cardiology [address] [place] [address] [place] [address] [place] [address] Return in about 6 months (around 03/21/2025) for Please schedule appt with Dr. Tuttle in 6months.CardiologyComment on above:Return in about 6 months (around 03/21/2025) for Please schedule appt with Dr. Tuttle in 6 months.Start: 10-48-7183UBUHFNLF SCREENDIABETES SCREENRegency Hospital [facility]tart: 03-01-2025 End: 44-92-9938Mtihdju encounter procedureNOMS CI FMComment on above:Arrived Start: 34-99-2823DmatuvtyyMain Campus Medical Centertart: 02-08-2025 End: 00-16-8393Auxzvtv encounter xaqugbnwq39/17/2025 4:00 PM EDT Office Visit [facility] CI FM [address] [place] [address] Linda Jansen PA [address] [place] [address] [facility] CI FMStart: 12-09-2024 End: 07-45-2084Mrwwuaw encounter rsnzpetxn15/17/2025 3:45 PM EDT Office Visit [facility] NB ORTHO [address] [place] [address] Eulalio Martinez, DO [address] [place] [address] ArrivedNOMS NB ORTHOComment on above:ArrivedStart: 12-03-2024 DIABETES SCREENDIABETES SCREENRegency Hospital [facility]tart: 10-28-2024 End: 17-78-5363Hvopqbx encounter stoznffru01/06/2025 3:45 PM EST Office Visit [facility] [address] [place] [address] Eulalio Martinez DO [address] [place] [address] [facility] NB ORTHOStart: 12-78-0100KZTXXSIS SCREENDIABETES SCREEN [facility]: 09-30-2024 End: 95-92-0187Gzqawta encounter oheaitval07/06/2025 3:30 PM EST Office Visit [facility] [address] [place] [address] Eulalio Martinez, DO [address] [place] [address] [facility] ORTHOStart: 44-40-9337Upkzruz Directive Discussion Advance Directive DiscussionRegency Hospital [facility] Easttart: 34-57-8338Trqaiomzrjxw Vaccine: 65+ Years (1 of 1 - PCV)Pneumococcal Vaccine: 65+ Years (1 of 1 - PCV) [facility] HealthcareStart: 08-24-2024 End: 27-23-2189Zqbffkg encounter procedureNOMADISON MED[facility] ORTHOComment on above:Arrived Start: 08-03-2024 End: 48-03-7922JZP W Auto Differential panel - BloodCBC auto differential Lab Routine Pre-op testing Expected: 08/03/2024 (Approximate), Expires: 07/27/2025 [facility] Healthcare Work Phone: Comment on above:Expected: 08/03/2024 (Approximate), Expires: 07/27/2025Start: 08-03-2024 End: 41-74-9135Gjyrewicanenw metabolic 2000 panel - Serum or PlasmaComprehensive metabolic panel Lab Routine Pre-op testing Expected: 08/03/2024 (Approximate), Expires: 07/27/2025NODE HealthcareComment on above:Expected: 08/03/2024 (Approximate), Expires: 07/27/2025Start: 07-30-2024 End: 76-80-2047Tnjzfeohkubq / ancillary services jyqosogpex17/06/2024 3:30 PM EST Ancillary Procedure [facility] FNR MR [address] [place] [address] [facility] FNR MRStart: 07-30-2024 End: 66-62-9965Bdvonnw encounter lgzvgqcuz93/06/2024 3:00 PM EST Office Visit Cardiology [address] [place] [address] [place] [address] [place] [address] 6 month follow upCardiologyComment on above:6 month follow up Start: 07-27-2024 End: 44-04-0622Ctflqcb encounter snhqudrww55/03/2024 3:30 PM EST Office Visit [facility] [address] [place] [address] Eulalio Martinez DO [address] [place] [address] ArrivedNOMS NB ORTHOComment on above:ArrivedStart: 07-27-2024 End: 67-49-2958XJA 12 leadECG 12 lead ECG Routine Pre-op testing Expected: 07/27/2024 (Approximate), Expires: 07/27/2025NOMS HealthcareComment on above: Expected: 07/27/2024 (Approximate), Expires: 07/27/2025Start: 06-25-2024 End: 55-63-3852FY Thoracic spine 3 ViewsXR thoracic spine 3 views Imaging Routine Strain of thoracic back region Muscle spasm Expected: 06/25/2024, Expires: 06/25/2025[facility] Work Phone: Comment on above:Expected: 06/25/2024, Expires: 06/25/2025Start: 06-15-2024 End: 72-04-2840Ogjqxbq encounter procedureNOMS NB ORTHOComment on above:Arrived Start: 06-11-2024 End: 07-84-3420Pddehpf encounter vgwavrtdc73/18/2024 12:00 PM EDT Office Visit [facility] [address] [facility] [address] [place] [address] Grace Bucio MD [address] [facility] [address] [place] [address] GENSStart: 06-10-2024 End: 34-42-7764Urjhyhv encounter rbqlgttyu29/17/2024 4:30 PM EDT Office Visit [facility] CI FM [address] [facility] [address] [place] [address] Sedrick Lyons NP [address] [place] [address] ArrivedNOMS CI FMComment on above:ArrivedStart: 06-02-2024 End: 02-24-6331Afxiyvm encounter iajiuwxdr05/09/2024 2:30 PM EDT Procedure Visit [facility] EXT DEP Grace Bucio MD [address] [place] [address] N[facility]S EXT DEPStart: 05-21-2024 End: 20-58-7372Igboymr encounter dfnegbmgj76/27/2024 12:00 PM EDT Consult [facility] [address] [place] [address] Grace Bucio MD [address] [place] [address] GENSStart: 05-04-2024 End: 67-15-6122Rwfazdi encounter aaayeeihs48/10/2024 3:00 PM EDT Consult [facility] [address] [place] [address] Grace Bucio MD [address] [place] [address] GENSStart: 66-47-5649Nrxfc-19 Vaccine ( season)Covid-19 Vaccine ( season)[facility]: 50-10-8904Yigmoszaz vaccinationRegency Hospital Cleveland Easttart: 01-30-2024 End: 78-22-4195Ppglgoc encounter ejybnsvxh73/07/2024 3:00 PM EDT Office Visit Cardiology [address] [place] [address] [place] [address] [place] [address] Return in about 6 months (around 01/30/2024).CardiologyComment on above:Return in about 6 months (around 01/30/2024).Start: 29-59-5393Mzfptgczwl Health ScreeningBehavioral Health ScreeningRegency Hospital [facility]tart: 08-25-2023 Depression AssessmentDepression AssessmentRegency Hospital [facility] Easttart: 04-25-2023 Covid-19 Vaccine ( season)Covid-19 Vaccine ( season) [facility]: 61-01-9748Wzephlwmg vaccinationRegency Hospital Cleveland Easttart: 13-43-0947HC CONTROLLED (<130/80)BP CONTROLLED (<130/80)[facility]: 14-70-2131GR CONTROLLED (<130/80)BP CONTROLLED (<130/80)[facility]: 59-07-5778SNBDHNTGMO ASSESSMENTDEPRESSION ASSESSMENTRegency Hospital Cleveland Easttart: 04-44-5459Iwjzfjikx vaccinationRegency Hospital [facility] Easttart: 03-28-2022 End: 86-95-0134Fasrdxrqffkbc metabolic 2000 panel - Serum or PlasmaCOMP METABOLIC PANEL Lab Routine Atherosclerosis Expected: 03/28/2022, Expires: 05/28/2022[facility] Work Phone: Comment on above:Expected: 03/28/2022, Expires: 05/28/2022tart: 03-28-2022 End: 88-36-1126Nxqua 1996 panel - Serum or PlasmaLIPID PANEL BASIC Lab Routine Atherosclerosis Expected: 03/28/2022, Expires: 05/28/2022[facility] Work Phone: Comment on above:Expected: 03/28/2022, Expires: 05/28/2022tart: 03-13-2022 End: 17-10-5793Rz heart contrast eval cardiac structure&morphCT PULMONARY VEIN W IVCON Radiology Routine Persistent atrial fibrillation (HCC) Expected: 03/13/2022, Expires: 01/11/2023[facility] Work Phone: comment on above:Expected: 03/13/2022, Expires: 01/11/2023Start: 12-12-2021 End: 73-76-7291ANH COMPLETEECG COMPLETE ECG Routine Persistent atrial fibrillation (HCC) Expected: 12/12/2021, Expires: 12/12/2022[facility] Work Phone: comment on above:Expected: 12/12/2021, Expires: 12/12/2022Start: 56-59-9248VIG, Provider: Tera Davison, Status: Pen, Time: 3:10 PMFUV, Provider: Tera Davison, Status: Pen, Time: 3:10 PMMP-[facility] [address] DO Work Phone: Start: 60-97-8428YHS, Provider: STANISLAV RAMIREZ TELECOMMUNICATIONS FIELD TECHNICIAN 1,[id number], Status: Pen, Time: 1:30 PMEKG, Provider: STANISLAV RAMIREZ TELECOMMUNICATIONS FIELD TECHNICIAN 1,[id number], Status: Pen, Time: 1:30 PM-[facility] [address] DO Work Phone: Start: 98-38-4684GUTGFBKCP, Provider: Tera Davison, Status: Pen, Time: 10:00 [facility], Provider: Tera Davison, Status: Pen, Time: 10:00 [facility] Work Phone: Start: 03-48-3973ICWUDFICHU ASSESSMENTDEPRESSION ASSESSMENTRegency Hospital [facility] Easttart: 19-34-8373SYCYZRAJT, Provider: Tera Davison, Status: Pen, Time: 9:00 [facility], Provider: Tera Davison, Status: Pen, Time: 9:00 AM[facility] [address] DO Work Phone: Start: 66-49-4793HJP Vaccine (1 - 1-dose 60+ series) RSV Vaccine (1 - 1-dose 60+ series)[facility]: 62-48-0771TEBADQCP CANCER SCREENING DISCUSSIONPROSTATE CANCER SCREENING DISCUSSIONHolzer Health System Start: 98-29-3425Iynbuatxbchn Vaccine: 50+ (1 of 1 - PCV)Pneumococcal Vaccine: 50+ (1 of 1 - PCV)[facility]: 32-64-8912Qtygirevmbco Vaccine: 65+ Years (1 of 1 - PCV)Pneumococcal Vaccine: 65+ Years (1 of 1 - PCV)[facility] HealthcareStart: 45-29-3385SVOEHRHI VACCINE (1 of 2)SHINGRIX VACCINE (1 of 2) [facility]: 25-74-3818SEVLLFLUS (FIT-DNA)COLOGUARD (FIT-DNA)[facility]: 15-70-4723OkwabklonhpBJASKNFNDBSUvrwbpavr ClinicStart: 2004 COLORECTAL CANCER SCREENINGCOLORECTAL CANCER SCREENINGRegency Hospital [facility]tart: 49-51-8242LQ COLONOGRAPHYCT COLONOGRAPHYRegency Hospital [facility]tart: 79-80-4233LVGXL OCCULT BLOODFECAL OCCULT BLOODRegency Hospital [facility]tart: 14-31-9347Hugghvnpe for malignant neoplasm of colonRegency Hospital [facility]tart: 81-82-2610KBXAVUXTQXHMN SIGMOIDOSCOPYRegency Hospital [facility] Easttart: 07-41-9825XHKON SCREENLIPID SCREENRegency Hospital [facility] Easttart: 56-43-1891Minzmnngzami Vaccine: 65+ Years (1 of 2 - PCV) Pneumococcal Vaccine: 65+ Years (1 of 2 - PCV)[facility] HealthcareStart: 1978 Urine microalbumin profileRegency Hospital Cleveland Easttart: 67-64-2379AXNOBG PCP TEAM CHRONIC DISEASE VISITANNUAL PCP TEAM CHRONIC DISEASE VISITRegency Hospital [facility] Easttart: 96-70-7811Cdenidr ScreeningAnxiety ScreeningRegency Hospital [facility] Easttart: 77-59-9206SR CONTROLLED (<130/80)BP CONTROLLED (<130/80)[facility]: 1977 Depression ScreeningDepression ScreeningRegency Hospital [facility] Easttart: 1977 HEPATITIS C SCREENINGHEPATITIS C SCREENINGRegency Hospital [facility] Easttart: 1977 Hepatitis C screeningHepatitis C ScreeningRegency Hospital [facility] Easttart: 72-28-8001QYO SCREENINGHIV SCREENINGRegency Hospital [facility]tart: 69-65-6830SCK screeningHIV ScreeningRegency Hospital [facility]tart: 43-17-3841Awmnu depression screening assessment DEPRESSION SCREENINGRegency Hospital Cleveland Easttart: 77-90-9394WEAWY-19 VACCINE (#1)COVID- 19 VACCINE (#1)[facility]: 81-85-1585GINCR-19 VACCINE (1)COVID-19 VACCINE (1)[facility]: 51-88-0080NOJUY-19 VACCINE (#1)COVID-19 VACCINE (#1)[facility]: 02-39-5242Ukyhwphxq for malignant neoplasm of colonMercy hospital springfieldFiitawcxak72-imckvbutpauoni D3 [Mass/volume] in Serum or Plasma Vitamin D 25 hydroxy Total Lab Routine Wellness examination Muscle cramping Ordered: 03/01/2025[facility] hospital springfieldComment on above:Ordered: 03/01/2025 Wwcu-5-Thtkjxromxkre [Mass/volume] in Serum or PlasmaAshtabula County Medical CenterBlood type and Indirect antibody screen panel - BloodAshtabula County Medical CenterBone marrow samplingAshtabula County Medical CenterCBC W Auto Differential panel - BloodCBC auto differential Lab Routine 04/20/2024 6:[address] [facility] Work Phone: cbc W Auto Differential panel - BloodCBC auto differential Lab Routine 01/13/2025 7:[address] [facility] Work Phone: cbc W Auto Differential panel - BloodCBC auto differential Lab Routine 02/10/2025 9:[address] [facility] Work Phone: cbc W Auto Differential panel - BloodCBC auto differential Lab Routine 05/12/2025 9:[address] [facility] Work Phone: Comprehensive metabolic 1999 panel - Serum or Plasma [facility] Medical CenterComprehensive metabolic 1999 panel - Serum or [facility]Comprehensive metabolic 1999 panel - Serum or [facility] ColumbusComprehensive metabolic 1999 panel - Serum or PlasmaComprehensive metabolic panel Lab Routine 05/12/2025 9:[address] [facility] Work Phone: Comprehensive metabolic 1999 panel - Serum or Plasma [facility] Medical CenterComprehensive metabolic 1999 panel - Serum or [facility] End: 42-17-4154KDR COMPLETEECG COMPLETE ECG Routine Atrial fibrillation, persistent (HCC) 1 Occurrences starting 08/01/2022 until 08/01/2023[facility] Work Phone: Comment on above:1 Occurrences starting 08/01/2022 until 08/01/2023ECG COMPLETEECG COMPLETE ECG 08/01/2022 2:00 PM [facility]: 73-81-9681JwemqwnolgmixpjrDYJM Cardiology Routine Persistent atrial fibrillation (HCC) 1 Occurrences starting 12/12/2021 until 12/12/2022[facility] Work Phone: comment on above:1 Occurrences starting 12/12/2021 until 12/12/2022 End: 40-16-6167OgpbbfsrjtdmeqzyRICZ Cardiology Routine PAF (paroxysmal atrial fibrillation) (HCC) 1 Occurrences starting 04/04/2025 until 04/04/2026[facility] Work Phone: Comment on above:1 Occurrences starting 04/04/2025 until 04/04/2026Ferritin [Mass/volume] in Serum or PlasmaFerritin Lab Routine 04/23/2024 3:[address] [facility] K+L LT CHAINS, QN, SFREE K+L LT CHAINS, QN, S Lab Routine 02/10/2025 9:[address] [facility] HospitalHaptoglobin [Mass/volume] in Serum or [facility] ColumbusHaptoglobin [Mass/volume] in Serum or [facility] ColumbusHemoglobin A1c/Hemoglobin.total in BloodHemoglobin A1c Lab Routine Muscle cramping Wellness examination IFG (impaired fasting glucose) Ordered: 03/01/2025[facility] Comment on above:Ordered: 03/01/2025Iron and Iron binding capacity panel - Serum or PlasmaIron and TIBC Lab Routine 04/23/2024 3:[address] [facility] Work Phone: Iron and Iron binding capacity panel - Serum or Plasma Iron and TIBC Lab Routine 05/12/2025 9:[address] [facility] HospitalLipid 1996 panel - Serum or PlasmaLipid panel Lab Routine Wellness examination Primary hypertension Ordered: 03/01/2025[facility] hospital springfieldComment on above:Ordered: 03/01/2025Patient EducationFircentra [facility] Bone Marrow Aspiration or Biopsy Know your MedsFirelands Regional Med Center Work Phone: Patient [facility] Work Phone: Prostate specific Ag [Mass/volume] in Serum or Plasma PSA Lab Routine Wellness examination Screening for malignant neoplasm of prostate Ordered: 03/01/2025[facility] springfieldComment on above:Ordered: 03/01/2025 Protein electrophoresis, serumProtein electrophoresis, serum Lab Routine 02/10/2025 9:[address] [facility] Work Phone: TSH W/REFLEX TO FT4TSH W/REFLEX TO FT4 Lab Routine Muscle cramping Wellness examination Ordered: 03/01/2025[facility] Work Phone: Comment on above:Ordered: 03/01/2025VIT. B12/FOLATE PROFILEVIT. B12/FOLATE PROFILE Lab Routine 04/23/2024 3:51 PM [facility] Immunizations Immunization DateImmunizationNotesCare BicaoodsQsyqynnz70-07-6530evjzsvqrx, injectable, quadrivalent, preservative freeChristian Carlos DO Work Phone: [facility] springfieldVxgbckicju77-98-3834slkxmwgxc virus vaccine, unspecified formulationBill Tuttle MD Work Phone: [facility] SystemWufeeg10-99-3868qxdsxnilk, injectable, quadrivalent, preservative freeRennym E Cassi Work Phone: [facility] SystemSgdkqb67-38-3126atiutgjmo, seasonal, injectableKim E Ye Work Phone: [phone]-[facility]yNorth [facility] 250 DO Work Phone: [phone], injectable, quadrivalent, preservative freeKim E Cassi Work Phone: [facility] SystemLrfiol26-51-6644nifnhoyir B vaccine, adult dosageKim E Cassi Work Phone: [facility] SystemJfgbwq30-74-8267hiuiqhztm B vaccine, adult dosageKim E Cassi Work Phone: [facility] SystemWctucv11-72-0673wlzxnjzgi B vaccine, adult dosageKim E Cassi Work Phone: [facility] Payers DatePayer CategoryPayerPolicy ID2025MedicareMEDICARE Member Subscriber Plan / Payer (Effective 2025-Present) Name: Draius Valera MemberID: [id number] Relation to Subscriber: Self Name: Darius Valera Subscriber ID: [id number] PayerID: STATE Group ID: Not on file Type: Medicare Address: [place] [id number] [id number]-[id number] [id number] Health Insurance [id number] UnknownMMO MMO MHS [id number] 2020-Present [phone] [address] [address] [place] [address] [id number] 1.2.840.160532.1.1[id number] [id number] 2.16.840.1.042774.3.579.2.593 61-19-9291Qemcefz4556965 2.16.840.1.723818.3.579.[id number] 2.16.840.1.948170.3.579.2.40505-76-5354Vocglqt5693289 2.16.840.1.946944.3.57[id number] 2.16.840.1.579158.3.579.2.64865-58-9611Bxxvfcv44370557 2.16.840.1.182697.3.579.2.62222-43-8653Iuqkfjn30534041 2.16.840.1.244591.3.579.2.33320-41-6086Ducoesx42248488 2.16.840.1.605667.3.579.2.75576-90-4007Bgcknbx62775082 2.16.840.1.383732.3.579.2.31364-76-3450Eekmyne79481831 2.16.840.1.862906.3.579.2.956264-27-4837Wplyekq5468794 2.16.840.1.778260.3.579.2.687947-41-4171Bttmzha1795858 2.16.840.1.743113.3.579.2.867664-56-8340Cdvileb9178449 2.16.840.1.792770.3.579.2.545062-86-9516Trtwips8553296 2.16.840.1.443562.3.579.2.857422-09-0638Rwforey2520222 2.16840.1.423107.3.579.2.923906-73-1155Gquedcj6626466 2.16840.1.149144.3.579.2.687742-81-6743Qtyhkdx1996550 2.16840.1.957532.3.579.2.799823-27-9866Rgqsjtc0453322 2.0.1.339344.3.579.2.342510-82-2021Gnqtwgf3968979 2.0.1.219938.3.579.2.022648-29-4806Rzpcvxr3258949 2.840.1.395835.3.579.2.606013-78-5500Sfymred3066705 2..1.074391.3.579.2.556766-01-0755Xwsregw4453141 2.0.1.652297.3.579.2.219065-46-7398Pjgeijz7904575 2.0.1.695601.3.579.2.536705-68-2399Rgdnubs8278111 2..1.896909.3.579.2.786966-35-6989Wirbzbw8721650 2..1.079485.3.579.2.326306-33-0554Phvphes3304827 2.0.1.807068.3.579.2.997984-07-7742Wdmhcva4357112 2..1.494367.3.579.2.011614-81-8975Ohwx-ljo66628932393-12-6560Ostavf's Kfixnjkjkbow04516624Qdjcvld3237227 2.840.1.178369.3.579.2.757Ylgdmrz43212222 2.16.840.1.148074.3.579.2.737Ejpcvny34572405 2.16.840.1.398980.3.579.2.531 Crmuued38797205 2.16.840.1.100479.3.579.2.337Yopptri29196224 2.16.840.1.296080.3.579.2.531 Social History DateTypeDetailFacilityStart: 01-17-2023 End: 26-50-0411Ikbdtpkv alcohol occasionallyConsumes alcohol occasionallyNOMS HealthcareComment on above:COFFEE ONCE IN A WHILE;occasionally;Start: 08-27-2021 End: 71-58-2502Uvgsfyo smoking status NHISNever smoked tobaccoHolzer Health System Start: 73-25-4320Sgo Assigned At BirthNot on fileRegency Hospital Cleveland Easttart: 11-09-2021 End: 79-40-8339Aszayqcq to SARS-CoV-2 (event)Not sureRegency Hospital Cleveland Easttart: 08-27-2021 End: 28-50-5559Kauyznm use and exposureSmokeless tobacco non-userRegency Hospital Cleveland Easttart: 12-03-2021 End: 79-04-7009Begkham intakeEx-drinker (finding)[facility]: 12-25-2021 End: 61-56-5558Irgyqpvo to SARS-CoV-2 (event)Unable to assessHolzer Health System Work Phone: Start: 01-17-2023 End: 07-45-6419Govqafe use panelNODE HealthcareStart: 06-01-2021 End: 73-38-8864Ybtbpdmd Score (1-100), lower number is lower fuyr68BephqyftbRegency Hospital Cleveland Easttart: 81-96-5986Wdi [facility]igned [facility] Centertart: 06-09-2024 End: 74-42-9254Gngwajpbs beverage intakeCurrent drinker of alcohol (finding)NOMS HealthcareWithin the last year, have you been afraid of your partner or ex-partner?NoNOMS HealthcareDo you belong to any clubs or organizations such as islam groups, unions, fraternal or athletic groups, or [...] before (I/we) got money to buy more.Never trueNODE HealthcareStart: 69-70-6734Gzxzjiv Comment Caffeine intake: 1-2 cups per dayNODE HealthcareStart: 12-07-2024 End: 81-24-0940EdwMpfs (finding)[facility] Functional Status IvsbQcmcmpjxnzEoziavLixtajor57-80-1120Mubztps Health Questionnaire 2 item (PHQ- 2) [Reported][facility] springfieldMcqnwftddc46-18-8909Ryqojha Health Questionnaire 2 item (PHQ- 2) [Reported][facility] springfieldSiqmprhvrv51-96-8073Vuh you deaf, or do you have serious difficulty hearingNo 12/04/2021 11:08 AM Irene Teixeira RN [facility] HospitalXpkmtl09-15-7349Whn you blind, or do you have serious difficulty seeing, even when wearing glassesNo 12/04/2021 11:08 AM Irene Teixeira RN NoCPomerene HospitalEiuukx94-67-4828Ji you have serious difficulty walking or climbing stairsNo 12/04/2021 11:08 AM Irene Teixeira RN NoCPomerene HospitalLktvod46-72-5530Vs you have difficulty dressing or bathingNo 12/04/2021 11:08 AM Irene Teixeira RN NoCPomerene HospitalVyxwzy39-28-0987Xwdlhpx of a physical, mental, or emotional condition, do you have difficulty doing errands alone such as visiting a physician's office or shoppingNo 12/04/2021 11:08 AM EDT Irene Tidwell RN No [facility] Mental Status Brcq[id number] of a physical, mental, or emotional condition, do you have serious difficulty concentrating, remembering, or making decisionsNo 12/04/2021 11:08 AM EDT Irene Tidwell RN [facility] Clinical Notes 11-30-2021 to 05-13-2025 Note Date & [id number] Evaluation note* Diagnosis Onset Date Resolution Status Admit Date Autoimmune hemolytic anemia acuteSeptember 2024 9:24amCLL (chronic lymphocytic leukemia)acuteSeptember 2024 9:24am [facility] Work Phone: 1(172) 913-857909-12-2025 Progress note Author Christian Carlos [facility] CenterNote Date/TimeSeptember 2024 4:02pm [facility] [place] [address] Cancer Center Note Signed Patient: Darius Valera MR#: [id number] : 1960 Acct:[id number] Age/Sex: 64 / M Type: [facility] Date of Service: Copies to: Linda Jansen PA-C~ Assessment & Plan CHEMO PLAN No Active Chemotherapy History of Present Illness HPI got labs at [facility]. his called us this morning to [...] Allergies Allergy (Verified 02/19/25 09:38) [facility] Medical History Medical History Lymphocytosis Kidney stone March 2023-removed History of torn meniscus of right knee DMITRY on CPAP Problem List clean-up per request of Phys. [facility] A-fib Problem List clean-up per request of Phys. [facility] Hypertension Problem List clean-up per request of Phys. [facility] Surgical History Surgical History History of surgery on right wrist excision of mass right wrist 07/14/2020 H/O cardiac radiofrequency ablation History of vasectomy Problem List clean-up per request [facility] Family History Family History Father Gene disease [...] by Christian Carlos II, DO> 05/06/25 1602 [facility] Work Phone: 1(987) 327-965709-12-2025 [facility] [place] [address] Cancer Center Note Signed Patient: Darius Valera MR#: [id number] : 1960 Acct:[id number] Age/Sex: 64 / M Type: [facility] AMB Date of Service: Copies to: Linda Jansen PA-C~ Assessment & Plan CHEMO PLAN No Active Chemotherapy History of Present Illness HPI got labs at [facility]. his called us this morning to [...] Allergies Allergy (Verified 02/19/25 09:38) [facility] Medical History Medical History Lymphocytosis Kidney stone March 2023-removed History of torn meniscus of right knee DMITRY on CPAP Problem List clean-up per request of Phys. [facility] A-fib Problem List clean-up per request of Phys. [facility] Hypertension Problem List clean-up per request of Phys. [facility] Surgical History Surgical History History of surgery on right wrist excision of mass right wrist 07/14/2020 H/O cardiac radiofrequency ablation History of vasectomy Problem List clean-up per request of Phys. [facility] Family History Family History Father [place] disease Father Mother Cancer Endometrial Cancer Grandparent Pancreatic cancer Social History Social History (Updated 02/19/25 @ 09:39 by Irene Garcia [facility]) Smoking status: Never smoker Nicotine [...] DO DD/ 1557 Signed By: 05/06/25 1602 [facility]08-11-2025 NoteHNO ID: [id number] Author: BILL TUTTLE MD Service: ? Author Type: Physician Type: Progress Notes Filed: 04/04/2025 14:57 Note Text: [facility] Heart [facility] V[facility] [place] [facility] Department of Cardiovascular Medicine SECTION OF [facility] CARDIOLOGY OUTPATIENT VISIT DATE April 04, 2025 [...] male here today for follow up from [place], [place]. Has h/o AF s/p ablation, HTN, DMITRY, tachycardia induced CMP, and CHF. On Eliquis, Nifedipine XL, Valsartan/HCTZ added on Doxazosin. Doxazocin increased to 2 mg but has been using only 1 mg daily. Continue to have BP spikes above 150s. Sotalol was discontinued. He followed before with a local chili pepper grinder Dr Hooks. Since last visit denies chest [...] TESTING: CT pulmonary 03/22/22 (more content not included)...[facility]08-11-2025 History of Present illness Narrative* Ita Tuttle MD - 04/04/2025 2:31 PM EDT Images from the original note were not included. [facility] Heart [facility] Vascular [place] [facility] Department of Cardiovascular Medicine SECTION [...] male here today for follow up from [place]. Has h/o AF s/p ablation, HTN, DMITRY, tachycardia induced CMP, and CHF. On Eliquis, Nifedipine XL, Valsartan/HCTZ added on Doxazosin. Doxazocin increased to 2 mg but has been using only 1 mg daily. Continue to have BP spikes above 150s. Sotalol was discontinued. He followed before with a local chili pepper grinder Dr Hooks. Since last visit denies chest [...] rare (<1.0%). Isolated VEs were occasional (1.4%, [id number]), VE Couplets were rare (<1.0%, 56), and [...] Bystolic - S/p DCC by his local chili pepper grinder (Dr Castle) and subsequent ablation by EP (Dr Sena). - Negative outside stress EKG for ischemia 03/22/2020 - Update echo - May use one supplemental Mg OTC daily to try for leg cramps - Most recent renal fx reviewed This note was partially generated using Ind[employer]Diva[employer] voice recognition system, and there may be some incorrect words, spellings, and punctuation that were not noted in checking the note before saving. Someelements copied from my previous notes which have been updated as appropriate and reflect current medical decision making from today Bill Tuttle M.D., Miguel CONTACT INFORMATION: Shelbi Tuttle M.D., Miguel. Dinkey Locomotive Engineer Clinical dispatch supervisor [facility] Staff Senior Laboratory Technician Timothy Diaz [facility] Mail Code AVW2-1 [id number] [facility] [place] [address] CC: To use this Smartlink, specify the [...] medications for this visit. documented in this encounterHolzer Health System07-24-2025 Telephone encounter Note * Telephone Encounter - DOROTHEA Liang - 03/17/2025 1:21 PM EDT My Chart Message. [id number] Miscellaneous Notes* Telephone Encounter - DOROTHEA Liang - 03/17/2025 1:21 PM EDT My Chart Message. documented in this encounterMercy hospital springfieldErzzpuhnhc21-16-2425 History of Present illness Narrative* DOROTHEA Liang [...] Lymphocytosis The patient is seeing a medical dermatologist for this condition, treatment is deferred to that specialist. Correspondence from that specialist and any available testing were reviewed during today's visit. Arteriosclerotic vascular disease The patient is seeing a medical dermatologist for this condition, treatment is deferred to [...] (HHS-HCC) The patient is seeing a medical dermatologist for this condition, treatment is deferred to that specialist. Correspondence from that specialist and any available testing were reviewed during today's visit. Thoracic aortic ectasia The patient is seeing a medical dermatologist for this condition, treatment is deferred to that specialist. Correspondence from that specialist and any available testing were reviewed during today's visit. History of colon polyps Will continue to monitor with routine screenings. PONV (postoperative nausea and vomiting) H/o, pt will need to inform anesthesia should he have any additional surgeries. IFG (impaired fasting glucose) - Hemoglobin A1c Will check S0oegkm upcoming fasting labs. Screening for malignant neoplasm of prostate - PSA Will check PSA with upcoming fasting labs. Follow up for Medicare Wellness Visit. 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 Apply ice to the knee [...] note was created using voice recognition through Phokki. documented in this encounterMercy hospital spr[id number] History of Present illness Narrative* Aracely De [...] the original note were not included. @ROSIE@ [facility] Soto is a 64 y.o. male who [...] applying ice to the affected area ni [facility] after work, which provided relief [...] hour before bedtime. He can continue taking [place] if needed, but not at the same [...] note was created using voice recognition through Phokki. documented in this encounterMercy hospital spr[id number] Telephone encounter Note* Telephone Encounter - Bria [...] 04/01/2022 0.98 0.73 - 1.22 mg/dL Final [facility]02-04-2025 Miscellaneous Notes* Telephone Encounter - Bria Alvarado [...] - 1.22 mg/dL Final documented in this encounterHolzer Health System01-28-2025 Instructions* Patient Instructions* Tony Armstrong PA-C - 09/21/2024 4:57 PM EST Please schedule appt with Dr. Tuttle in 6 months documented in this encounterHolzer Health System01-28-2025 History of Present illness Narrative* Tony Armstrong PA-C - 09/21/2024 4:30 PM EST Images from the original note were not included. [facility] [place] [facility] Department of Cardiovascular Medicine SECTION [...] rare (<1.0%). Isolated VEs were occasional (1.4%, [id number]), VE Couplets were rare (<1.0%, 56), and [...] months CONTACT INFORMATION: Tony Armstrong PA-C Cardiology [address] [facility] [place] [address] Dept: [phone] Dept documented in this encounterHolzer Health System01-28-2025 NoteHNO ID: [id number] Author: TONY ARMSTRONG PA-C Service: ? Author Type: Physician Dinkey Locomotive Engineer Type: Progress Notes Filed: 09/21/2024 17:03 Note Text: [facility] [place] [facility] Department of Cardiovascular Medicine SECTION [...] rare (<1.0%). Isolated VEs were occasional (1.4%, 22425), VE Couplets were rare (<1.0%, 56), and [...] months CONTACT INFORMATION: Tony Armstrong PA-C Cardiology [address] [place] [address] Dept: [phone] Dept [facility]ghxgpPrem[facility]01-22-2025 History of Present illness Narrative* [...] No follow-ups on file. documented in this encounterMercy hospital springfieldObncrglmpz24-42-2064 History of Present illness Narrative* Eulalio Martinez, DO - 08/24/2024 11:15 AM EST Images from the original note were not included. @ESADATE@ [facility] Soto is a 63 y.o. male who [...] note was created using voice recognition through Phokki. documented in this encounterMercy hospital springfieldJrhfszynzw17-20-2830 History of Present illness Narrative* Euallio Martinez DO - 07/27/2024 3:30 PM EST [...] He also mentions a recent fall in [facility], where he tripped on a sidewalk and landed on his elbow, shoulder, and knee. Following this incident, he noticed swelling in his hands, which has since improved. He went to the urgent care in [place] for evaluation the following day. Xrays of [...] note was created using voice recognition through [employer] artificial intelligence. documented in this encounterMercy hospital spr[id number] Telephone encounter Note* Telephone Encounter - Bria [...] 04/01/2022 0.98 0.73 - 1.22 mg/dL Final [facility]11-06-2024 Miscellaneous Notes* Telephone Encounter - Bria Alvarado [...] - 1.22 mg/dL Final documented in this encounterHolzer Health System11-05-2024 Telephone encounter Note * Telephone Encounter - DOROTHEA Liang - 06/29/2024 4:06 PM EST My Chart message sent. [place] [id number] Miscellaneous Notes* Telephone Encounter - DOROTHEA Liang - 06/29/2024 4:06 PM EST My Chart message sent. documented in this encounterMercy hospital springfieldUzcwapprsq63-48-5210 Telephone encounter Note* Telephone Encounter - DOROTHEA Liang - 06/28/2024 10:41 AM EST Message sent through [employer] [place] [id number] Miscellaneous Notes* Telephone Encounter - DOROTHEA Liang - 06/28/2024 10:41 AM EST Message sent through [employer] * Telephone Encounter - Kayla Rose LPN - 06/25/2024 12:28 PM EDT Attempted to call patient multiple times and call will not go through. Xray order has been sent to [facility] so he can go get that done at his convenience and PT will contact him to schedule. * Telephone Encounter - DOROTHEA Liang - 06/25/2024 12:08 PM EDT Ok to send order for x-rays to [facility]. Please let pt know that x-rays [...] he would like to have done at [facility] if you do order. documented in this encounterNOSaint Mary's Health CenterOzpytgwlyj67-97-1687 Telephone encounter Note* Telephone Encounter - Kayla Rose LPN - 06/25/2024 12:28 PM EDT Attempted to call patient multiple times and call will not go through. Xray order has been sent to [facility] so he can go get that done at his convenience and PT will contact him to schedule. [facility] hospital springfieldLseautvtxb57-09-1697 Telephone encounter Note* Telephone Encounter - DOROTHEA Liang - 06/25/2024 12:08 PM EDT Ok to send order for x-rays to [facility]. Please let pt know that x-rays have been ordered and a PT referral was sent for him also. [facility] springfieldQkyaxrssez02-48-5045 Telephone encounter Note* Telephone Encounter - Kayla Rose LPN - 06/25/2024 11:51 AM EDT Pt called stating he saw Sedrick Lyons on 06/10 and was diagnosed with stain of thoracic spine and muscle spasm, rx'd Prednisone, Tizanidine. States it is not really helping and was ?'ing if you could order either an x-ray or PT. X-ray he would like to have done at [facility] if you do order. [facility] hospital spr[id number] History of Present illness Narrative* Eulalio Martinez, - 06/15/2024 3:15 PM EDT Images from the original note were not included. @ENCDATE@ [facility] Soto is a 63 y.o. male who [...] the right knee performed at [facility] on 03/13/2019; Tear in the body [...] note was created using voice recognition through [employer] artificial intelligence. documented in this encounterMercy hospital springfieldDlkzszjvlx05-63-0601 History of Present illness Narrative* Sedrick Lyons [...] No follow-ups on file. documented in this [facility]10-17-2024 Instructions* Patient Instructions* Sedrick Lyons NP - 06/10/2024 4:30 PM EDT Added prednisone and tizanidine. documented in this [facility]09-27-2024 History of Present illness Narrative* Grace [...] fibrillation (CMS/HCC) COVID-19 08/05/2023 Hydronephrosis 04/14/2023 Hyperlipidemia ([facility]/HCC) Hypertension ([facility]) Kidney stone 04/14/2023 DMITRY (obstructive sleep apnea) [...] colonoscopy in 10 years. documented in this encounterMercy hospital spr[id number] History of Present illness Narrative* Ita Tuttle MD - 01/30/2024 2:08 PM EDT Images from the original note were not included. [facility] Heart and Vascular [place] [facility] Department of Cardiovascular Medicine SECTION OF REGIONAL CARDIOLOGY OUTPATIENT VISIT DATE January 30, 2024 OUTPATIENT VISIT TYPE ESTABLISHED HISTORY OF PRESENT ILLNESS: Darius Valear is a (an) 63 year old year old male who is here today for follow- up. He had elevated WBCs and was seen by outside blast furnace keeper and was told might have CLL Last [...] male here today for follow up from [place], [place]. Has h/o AF s/p ablation, HTN, DMITRY, tachycardia induced CMP, and CHF. On Eliquis, Nifedipine XL, Valsartan/HCTZ added on Doxazosin. Doxazocin increased to 2 mg but has been using only 1 mg daily. Continue to have BP spikes above 150s. Sotalol was discontinued. He followed before with a local chili pepper grinder Dr Hooks. Since last visit denies chest [...] rare (<1.0%). Isolated VEs were occasional (1.4%, 55566), VE Couplets were rare (<1.0%, 56), and [...] needed - S/p DCC by his local chili pepper grinder (Dr Castle) and subsequent ablation by EP (Dr Sena). - Negative outside stress EKG for ischemia 03/22/2020 - Refill authorized - Most recent renal fx reviewed This note was partially generated using [employer] voice recognition system, and there may be some incorrect words, spellings, and punctuation that were not noted in checking the note before saving. Someelements copied from my previous notes which have been updated as appropriate and reflect current medical decision making from today Bill Tuttle M.D., Miguel CONTACT INFORMATION: Shelbi Tuttle M.D., Miguel. Dinkey Locomotive Engineer Clinical dispatch supervisor [facility] Staff Senior Laboratory Technician Timothy Diaz [facility] Mail Code AVW2-1 [address] [facility] [place] [address] CC: To use this Smartlink, specify the provider ID whose address you want to display, e.g., .PROVADDR[1 (where 1 is the provider ID). documented in this encounterHolzer Health System05-08-2024 Telephone encounter Note * Telephone Encounter - [...] 04/01/2022 0.98 0.73 - 1.22 mg/dL Final [facility]05-08-2024 Miscellaneous Notes* Telephone Encounter - Fabiola Doty [...] - 1.22 mg/dL Final documented in this encounterHolzer Health System01-22-2024 Miscellaneous Notes* Telephone Encounter - Uyen Martinez RN - 09/15/2023 10:37 AM EST Pt sent KOWN message regarding below. * Telephone Encounter - [...] Thanks Shelbi Tuttle MD documented in this encounterHolzer Health System12-07-2023 History of Present illness Narrative* Ita Tuttle MD - 07/31/2023 12:48 PM EST Images from the original note were not included. [facility] Heart and Vascular [place] [facility] Department of Cardiovascular Medicine SECTION OF REGIONAL CARDIOLOGY OUTPATIENT VISIT DATE July 31, 2023 OUTPATIENT VISIT TYPE ESTABLISHED HISTORY OF PRESENT ILLNESS: Darius Valera is a (an) 62 year old year old male who is here today for follow- up. Since last visit denies chest pain, SOB, palpitations or lightheadedness. Was taken off Eliquis by EP. Last OV 01/17/23 aDrius Valera is a (an) 62 year old year old male who is here today for follow up. Since last visit denies chest pain, SOB, TAY, palpitations or edema. He brought his BP log book which showed occasional elevated BP at home in the morning.Had some labs at work. Darius Valera is a 62 year old male here today for follow up from [place], [place]. Has h/o AF s/p ablation, HTN, DMITRY, tachycardia induced CMP, and CHF. On Eliquis, Nifedipine XL, Valsartan/HCTZ added on Doxazosin. Doxazocin increased to 2 mg but has been using only 1 mg daily. Continue to have BP spikes above 150s. Sotalol was discontinued. He followed before with a local chili pepper grinder Dr Hooks. Since last visit denies chest [...] size - S/p DCC by his local chili pepper grinder (Dr Castle) and subsequent ablation by EP (Dr Sena). - Negative outside stress EKG for ischemia 03/22/2020 - Advised to establish with a PCP at [facility] This note was partially generated using Ind[employer]Diva[employer] voice recognition system, and there may be some incorrect words, spellings, and punctuation that were not noted in checking the note before saving. Someelements copied from my previous notes which have been updated as appropriate and reflect current medical decision making from today Bill Tuttle M.D., Miguel CONTACT INFORMATION: Shelbi Tuttle M.D., Miguel. Dinkey Locomotive Engineer Clinical dispatch supervisor [facility] Staff Senior Laboratory Technician Timothy Diaz [facility] Mail Code AVW2-1 [id number] [facility] [place] [address] CC: To use this Smartlink, specify the provider ID whose address you want to display, e.g., .PROVADDR[1 (where 1 is the provider ID). documented in this encounterHolzer Health System08-08-2023 Miscellaneous Notes* Telephone Encounter - Griselda Jones [...] - 1.22 mg/dL Final documented in this encounterHolzer Health System05-03-2023 History of Present illness Narrative* Ita Tuttle MD - 12/25/2022 2:00 PM EDT Images from the original note were not included. [facility] Heart and Vascular [place] [facility] Department of Cardiovascular Medicine SECTION OF REGIONAL CARDIOLOGY OUTPATIENT VISIT DATE December 25, 2022 OUTPATIENT VISIT TYPE Established HISTORY OF PRESENT ILLNESS: Darius Valera is a 62 year old male here today for follow up from [place], [place]. Has h/o AF s/p ablation, HTN, DMITRY, tachycardia induced CMP, and CHF. On Eliquis, Nifedipine XL, Valsartan/HCTZ added on Doxazosin. Doxazocin increased to 2 mg but has been using only 1 mg daily. Continue to have BP spikes above 150s. Sotalol was discontinued. He followed before with a local chili pepper grinder Dr Hooks. Since last visit denies chest [...] daily - S/p DCC by his local chili pepper grinder (Dr Castle) and subsequent ablation by EP [...] needed. This note was partially generated using [employer] voice recognition system, and there may be some incorrect words, spellings, and punctuation that were not noted in checking the note before saving. Bill Tuttle M.D., F.A.C.C CONTACT INFORMATION: Bill Tuttle M.D., F.A.C.C. Staff Senior Laboratory Technician Timothy Diaz [facility] Mail Code AVW2-1 [address] [facility] [place] [address] CC: To use this Smartlink, specify the provider ID whose address you want to display, e.g., .PROVADDR[1 (where 1 is the provider ID). documented in this encounterHolzer Health System05-02-2023 NotePROCEDURE: XR FOOT RT MIN 3 VIEWS, [...] Electronically authenticated by: BRIA PATEL Date: 2022-12-24 12:07[facility]05-02-2023 NotePROCEDURE: XR FOOT RT MIN 3 VIEWS, [...] Electronically authenticated by: BRIA PATEL Date: 2022-12-24 12:07[facility]03-08-2023 Miscellaneous Notes* Telephone Encounter - Lila Alvarenga - 10/30/2022 3:09 PM EST Darius rescheduled for [facility] in March with Dr. Sena. 10/30/2022 [...] only Please advise spouse documented in this encounterHolzer Health System02-23-2023 History of Present illness Narrative* Ita Tuttle MD - 10/17/2022 3:30 PM EST Images from the original note were not included. [facility] Heart and Vascular [place] [facility] Department of Cardiovascular Medicine SECTION OF REGIONAL CARDIOLOGY OUTPATIENT VISIT DATE October 17, 2022 OUTPATIENT VISIT TYPE Established HISTORY OF PRESENT ILLNESS: Darius Valera is a 62 year old male here today for follow up from [place], [place]. Has h/o AF s/p ablation, HTN, DMITRY, tachycardia induced CMP, and CHF. On Eliquis, Nifedipine XL, Valsartan/HCTZ added on Doxazosin. Sotalol was discontinued. He followedbefore with a local chili pepper grinder Dr Hooks. Since last visit denies chest [...] MG - S/p DCC by his local chili pepper grinder (Dr Castle) and subsequent ablation by EP [...] needed. This note was partially generated using [employer] voice recognition system, and there may be some incorrect words, spellings, and punctuation that were not noted in checking the note before saving. Bill Tuttle M.D., Miguel CONTACT INFORMATION: Bill Tuttle M.D., Miguel. Staff Senior Laboratory Technician Timothy Diaz [facility] Mail Code AVW2-1 [address] [facility] [place] [address] CC: To use this Smartlink, specify the provider ID whose address you want to display, e.g., .PROVADDR[1 (where 1 is the provider ID). documented in this encounterHolzer Health System02-23-2023 Miscellaneous Notes* Telephone Encounter - Manisha Pinzon [...] Busby - 10/16/2022 4:19 PM EST Local [facility] 10 day supply Patient has not received it through mail yet, Today was his last pill, is it possible to do a shortterm refill so he does not miss a dose. Has an appointment tomorrow with us but is requesting to have filled tonight. documented in this encounterHolzer Health System02-20-2023 Miscellaneous Notes* Telephone Encounter - Marquez Giang [...] - 1.4 mg/dL Final documented in this encounterHolzer Health System02-13-2023 Miscellaneous Notes* Telephone Encounter - Virgie Pretty [...] - 1.4 mg/dL Final documented in this encounterHolzer Health System01-20-2023 History of Present illness Narrative* Ita Tuttle MD - 09/13/2022 3:30 PM EST Images from the original note were not included. [facility] Heart and Vascular [place] Sissy Zepeda Department of Cardiovascular Medicine SECTION OF REGIONAL CARDIOLOGY OUTPATIENT VISIT DATE September 13, 2022 OUTPATIENT VISIT TYPE Established HISTORY OF PRESENT ILLNESS: Darius Valera is a 61 year old male here today for follow up from [place], [place]. Has h/o AF s/p ablation, HTN, DMITRY, tachycardia induced CMP, and CHF. On Eliquis, Nifedipine XL, Valsartan/HCTZ. Sotalol was discontinued. He followed before with a local chili pepper grinder Dr Hooks. Since last visit denies chest [...] or gallop. No parasternal heave or thrill. [place] not displaced. LUNGS: clear to auscultation, no [...] daily - S/p DCC by his local chili pepper grinder (Dr Castle) and subsequent ablation by EP [...] needed. This note was partially generated using [employer] voice recognition system, and there may be some incorrect words, spellings, and punctuation that were not noted in checking the note before saving. Bill Tuttle M.D., F.A.C.C CONTACT INFORMATION: Bill Tuttle M.D., F.A.C.C. Staff Senior Laboratory Technician Timothy Diaz [facility] Mail Code AVW2-[address] [place] [address] CC: To use this Smartlink, specify the provider ID whose address you want to display, e.g., .PROVADDR[1 (where 1 is the provider ID). documented in this encounterHolzer Health System12-09-2022 Miscellaneous Notes* Telephone Encounter - Shani Abdul [...] a day. Thanks TD documented in this encounterHolzer Health System12-09-2022 Miscellaneous Notes* Telephone Encounter - Marissa Guzman [...] a day. Thanks TD documented in this encounterHolzer Health System12-08-2022 History of Present illness Narrative* Hiren Sena [...] BP readings, which have frequently been in [id number]. ACTIVE PROBLEM LIST Atrial Fibrillation, Persistent (Hcc) [...] can follow-up with me as needed. Hiren Snea MD CC - Bill Tuttle MD This clinical note has been produced using speech recognition software and may contain errors related to that system including grammar, punctuation, spelling, gender and words and phrases that may beinappropriate. documented in this encounterHolzer Health System09-16-2022 History of Present illness Narrative* Ita Tuttle MD - 05/10/2022 3:03 PM EDT Images from the original note were not included. [facility] Heart and Vascular [place] [facility] Zepeda Department of Cardiovascular Medicine SECTION OF REGIONAL CARDIOLOGY OUTPATIENT VISIT DATE May 10, 2022 OUTPATIENT VISIT TYPE Established HISTORY OF PRESENT ILLNESS: Darius Valera is a 61 year old male here today for follow up from [place], [place]. Has h/o AF s/p ablation, HTN, DMITRY, tachycardia induced CMP, and CHF. On Eliquis, Nifedipine XL, Valsartan/HCTZ, Lasix, Potassium chloride. Sotalol was discontinued. He followed before with a local chili pepper grinder Dr Hooks. He reported that he was [...] or gallop. No parasternal heave or thrill. [place] not displaced. LUNGS: clear to auscultation, no [...] Nifedipine - S/p DCC by his local chili pepper grinder (Dr Castle) and subsequent ablation by EP [...] needed. This note was partially generated using [employer] voice recognition system, and there may be some incorrect words, spellings, and punctuation that were not noted in checking the note before saving. Bill Tuttle M.D., Miguel CONTACT INFORMATION: Bill Tuttle M.D., Miguel. Staff Senior Laboratory Technician Timothy Diaz [facility] Mail Code AVW2-1 [address] [place] [address] CC: To use this Smartlink, specify the provider ID whose address you want to display, e.g., .PROVADDR[1 (where 1 is the provider ID). documented in this encounterHolzer Health System08-19-2022 History of Present illness Narrative* Bridget Hudson - 04/12/2022 2:39 PM EDT Waiting for LALO for program status/follow up documented in this encounterHolzer Health System08-04-2022 History of Present illness Narrative* Ita Tuttle MD - 03/28/2022 3:00 PM EDT Images from the original note were not included. [facility] Heart and Vascular [place] [facility] Zepeda Department of Cardiovascular Medicine SECTION OF REGIONAL CARDIOLOGY OUTPATIENT VISIT DATE March 28, 2022 OUTPATIENT VISIT TYPE Established HISTORY OF PRESENT ILLNESS: Darius Valera is a 61 year old male here today for follow up from [place], [place]. Has h/o AF, HTN, DMITRY, tachycardia induced CMP, and CHF. On Eliquis, Nifedipine XL, Valsartan/HCTZ, Lasix, Potassium chloride, and Sotalol. He followed before with a local chili pepper grinder Dr Hooks. He reported that he was [...] or gallop. No parasternal heave or thrill. [place] not displaced. LUNGS: clear to auscultation, no [...] Nifedipine - S/p DCC by his local chili pepper grinder (Dr Castle) and subsequent ablation by EP [...] lipids This note was partially generated using [employer] voice recognition system, and there may be some incorrect words, spellings, and punctuation that were not noted in checking the note before saving. Bill Tuttle M.D., F.Jojo.C.C CONTACT INFORMATION: Bill Tuttle M.D., F.A.C.C. Staff Senior Laboratory Technician Timothy Hdz [facility] Mail Code AVW2-1 [address] [place] [address] CC: To use this Smartlink, specify the provider ID whose address you want to display, e.g., .PROVADDR[1 (where 1 is the provider ID). documented in this encounterHolzer Health System08-02-2022 History of Present illness Narrative* Bijal Jackson PA-C - 03/26/2022 1:40 PM EDT Incidental Lung Nodule Enrollment Call attempt: 1st Attempt Call status: Complete Enrolled in Lung Nodule program: Yes Lung Nodule outreach: Enrolled Lung Nodule Program Location: [place] Patient has already discussed lung nodule with his chili pepper grinder, who placed a consult to lung nodule clinic. He is scheduled to see Lilo Moody later this month. documented in this encounterHolzer Health System07-29-2022 History of Present illness Narrative* Barbara Mccloud APRN.CNP - 03/22/2022 9:59 AM EDT Images from the original note were not included. [facility] [place] [facility] Department of Cardiovascular Medicine SECTION [...] success off AAD Not applicable Barbara Mccloud APRN.PRODUCT SAFETY TECHNICIAN Pulmonary CT scan 03/22/2022: IMPRESSION: 1. Normal [...] INFORMATION: Barbara Mccloud APRN.CNP documented in this encounterHolzer Health System07-29-2022 History of Present illness Narrative* RT Salome(R) [...] Intact SIGNATURE: Fco Bentley RN PATIENT NAME: aDrius Valera DATE: March 22, 2022 TIME: 8:50 AM documented in this encounterHolzer Health System05-19-2022 Miscellaneous Notes* Telephone Encounter - Britney Gamboa [...] Britney Gamboa APRN.CNP, DNP documented in this encounterHolzer Health System04-29-2022 Miscellaneous Notes* Telephone Encounter - Yara Rubin RN - 12/21/2021 4:03 PM EDT Closing encounter see encounter note as below: RX INSTRUCTIONS: Patient aware RX will be sent to pharmacy. No need to notify patient. Alicia Chavarria documented in this encounterHolzer Health System04-29-2022 Miscellaneous Notes* Telephone Encounter - Ran Driver [...] notify patient. Alicia Chavarria documented in this encounterHolzer Health System04-28-2022 Miscellaneous Notes* Telephone Encounter - Uyen Martinez RN - 12/20/2021 3:45 PM EDT Pt in for office visit with Dr. Tuttle today. 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 Pt had ablation on 12/03/21. Please sign refill of sotalol if appropriate. Thanks documented in this encounterHolzer Health System04-14-2022 Miscellaneous Notes* Telephone Encounter - Uyen Allison RN - 12/06/2021 4:34 PM EDT Completed form given to admin to fax and upload. Uyen Allison RN * Telephone Encounter - Tayla Burrell - 12/06/2021 1:11 PM EDT Received FMLA paper work today and left on nurses desk to complete. I also uploaded documents to [employer] * Telephone Encounter - Elida Abarca - 12/06/2021 10:49 AM EDT Please contact patient regarding ki workhart message. documented in this encounterHolzer Health System04-13-2022 Miscellaneous Notes* Telephone Encounter - Barbara Mccloud [...] he has no improvement by Friday, to [facility] ED for evaluation. Patient verbalized understanding. I asked him to call the office with any updates. Barbara Mccloud APRN.CNP documented in this encounterHolzer Health System04-13-2022 Miscellaneous Notes* Telephone Encounter - Cammy Fay RN - 12/05/2021 3:55 PM EDT [facility] Contact Center Inbound Phone Encounter DATE of SERVICE: 12/05/2021 TIME of SERVICE: 3:55 PM Status: Non-urgent, needs attention Service/Provider: EP/JAMIE Garvey M.D. Reason for call: Pain Contact information: [phone] [facility] Comments: Pt states that he is having pain in his bilat upper chest, I can not even lay down . He is taking tylenol and it is not working. He wants to know if he can take something else? Please callto discuss. Cammy Fay RN Date of Resolution: 12/05/2021 Time of Resolution 3:55 PM documented in this encounterHolzer Health System04-13-2022 Miscellaneous Notes* Telephone Encounter - Elida Abarca - 12/05/2021 3:41 PM EDT Please contact patient regarding MyChart message. * Telephone Encounter - DARIO Jose - 12/05/2021 1:49 PM EDT Patients calling. Patients workplace did not receive [facility] paperwork & patient is needing a return to work date. Please advise [phone] documented in this [facility]04-12-[facility] History of Present illness Narrative* Tammy Mendoza - 12/04/2021 11:12 AM EDT TRANSMITTER INSTRUCTIONS Patient Name: Darius Valera [facility] Number: [id number] Fresh battery inserted in monitor Baseline recording not completed Patient instructed 1.) Scheduled and Symptomatic recording instructions 2.) Usage of event button and/or transmission instructions 3.) Maintenance and care of monitor 4.) Landline availability 5.) Return unit at the end of prescribed order 6.) Call with problems [phone] OR [phone] Patient expresses good verbal understanding of instructions Tammy Mendoza documented in this [facility]04-08-2022 History of Present illness Narrative* Griselda [...] discussed with Physician, nurse practitioner or Physician clothing sales assistant upon discharge Instructions for transmitting EKG to Monitoring Center 3 month follow up instructions Contact number for information and questions Patient Evaluation: Verbalizes understanding Follow Up Plan: Follow up as directed by MD. Supplemental Material Given: Written Material Patient education regarding radiation exposure. Instructed By Griselda Feledr RN, RN. In Department of CARDIOLOGY. [facility]* Diagnosis AF (paroxysmal atrial fibrillation) (HCC)- Primary Atrial fibrillation [facility]* Diagnosis Persistent atrial fibrillation (HCC) Atrial fibrillation documented in this encounter [facility] note* Diagnosis Atrial fibrillation, persistent (HCC)- Primary Atrial fibrillation documented in this encounter [facility] note* Diagnosis Atrial fibrillation, persistent (HCC) Atrial fibrillation Benign essential HTN Essential hypertension, benign documented in this encounter [facility] note* Diagnosis Atrial fibrillation, persistent (HCC) Atrial fibrillation Benign essential HTN Essential hypertension, benign Hypertension, unspecified type documented in this encounter [facility] note* Diagnosis Atrial fibrillation, persistent (HCC)- Primary Atrial fibrillation Lung nodule Solitary pulmonary nodule DMITRY (obstructive sleep apnea) Obstructive sleep apnea (adult) (pediatric) documented in this encounter [facility] note* Diagnosis Persistent atrial fibrillation (HCC) Atrial fibrillation documented in this encounter [facility] note* Diagnosis Lung nodule- Primary Solitary pulmonary nodule documented in this encounter [facility] note* Diagnosis Atherosclerosis- Primary Generalized and unspecified atherosclerosis Ascending aorta dilatation (HCC) Thoracic aortic ectasia Tachycardia induced cardiomyopathy (HCC) Tachycardia, unspecified documented in this encounter [facility] note* Diagnosis Tachycardia induced cardiomyopathy (HCC)- Primary Tachycardia, unspecified documented in this encounter [facility] note* Diagnosis Atrial fibrillation, persistent (HCC)- Primary Atrial fibrillation Hypertension, unspecified type DMITRY (obstructive sleep apnea) Obstructive sleep apnea (adult) (pediatric) Benign essential HTN Essential hypertension, benign S/P ablation of atrial fibrillation Other postprocedural status Encounter for current long-term use of anticoagulants Long-term (current) use of anticoagulants documented in this encounter [facility] note* Diagnosis Hypertension, unspecified type- Primary documented in this encounter [facility] note* Diagnosis Hypertension, unspecified type documented in this encounter [facility] note* Diagnosis Medication refill [Z76.0 (ICD-10-CM)]- Primary Issue of repeat prescriptions Hypertension, unspecified type documented in this encounter [facility] note* Diagnosis Hypertension, unspecified type- Primary documented in this encounter [facility] note* Diagnosis Atrial fibrillation, persistent (HCC) Atrial fibrillation Benign essential HTN Essential hypertension, benign documented in this encounter [facility] note* Diagnosis Hypertension, unspecified type- Primary Aortic root dilatation (HCC) Thoracic aortic ectasia documented in this encounter [facility] note* Diagnosis Hypertension, unspecified type documented in this encounter [facility] noteNo assessment information availableRegency Hospital [facility] Work Phone: Evaluation note* Diagnosis Paroxysmal atrial fibrillation (HCC)- Primary Atrial fibrillation Atrial fibrillation, persistent (HCC) Atrial fibrillation Benign essential HTN Essential hypertension, benign Hypertension, unspecified type Prescription refill Issue of repeat prescriptions Tachycardia induced cardiomyopathy (HCC) Tachycardia, unspecified Aortic root dilatation (HCC) Thoracic aortic ectasia documented in this encounter [facility] note* Diagnosis Onset Date Resolution Status Lymphocytosis acute [facility] Work Phone: Evaluation note* Diagnosis Screening for malignant neoplasm of colon- Primary [facility]* Diagnosis Tear of medial meniscus of right knee, current, unspecified tear type, subsequent encounter- Primary documented in this encounter [facility]* Diagnosis Strain of thoracic back region- Primary Muscle spasm Spasm of muscle [facility]* Diagnosis Strain of thoracic back region- Primary Muscle spasm Spasm of muscle [facility]* Diagnosis Pre-op testing Unspecified pre-operative examination [facility]* Diagnosis History of colon polyps- Primary Screening for malignant neoplasm of colon documented in this encounter [facility]* Diagnosis S/P right knee arthroscopy- Primary documented in this encounter [facility]* Diagnosis Acute non-recurrent maxillary sinusitis- Primary documented [facility]* Diagnosis Primary hypertension- Primary Unspecified essential hypertension PAF (paroxysmal atrial fibrillation) (HCC) Atrial fibrillation Coronary artery calcification Coronary atherosclerosis of unspecified type of vessel, [place] or graft documented in this encounter [facility]* Diagnosis Prescription refill- Primary Issue of repeat prescriptions documented in this encounter [facility]* Diagnosis Left hand pain- Primary Pain in soft tissues of limb S/P right knee arthroscopy Right knee pain, unspecified chronicity documented in this encounter [facility]* Diagnosis S/P right knee arthroscopy- Primary documented in [facility]* Diagnosis Hypertension, unspecified type documented in [facility]* Diagnosis Wellness examination- Primary Muscle [...] neoplasm of prostate documented [facility]* Diagnosis PAF (paroxysmal atrial fibrillation) (HCC)- Primary Atrial fibrillation Atrial fibrillation, persistent (HCC) Atrial fibrillation Benign essential HTN Essential hypertension, benign Hypertension, unspecified type Tachycardia induced cardiomyopathy (HCC) Tachycardia, unspecified documented in this encounter [facility] SystemHistory of Present illness Narrative* Here for follow-up [...] Arrangements for cardioversion will be made [facility] 250 DO Work Phone: History of [...] 4. Arrangements for cardioversion will be made [facility] Work Phone: History of Present [...] 4. Arrangements for cardioversion will be made [facility] Work Phone: History of Present [...] his primary care provider. documented in this encounterNOSaint Mary's Health CenterReason for referral (narrative)* Outpatient Procedure (Routine) - Pending ReviewSpecialtyDiagnoses / Procedures Referred By ContactReferred To [facility] Diagnoses Persistent atrial fibrillation (HCC) Procedures ECG COMPLETE ECG ROUTINE ECG W/LEAST 12 LDS W/I&R 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 APRN.CNP [address] [place] [address] Heart [facility] [place] [address] [place] [address] Referral IDStatusReasonStart DateExpiration DateVisits RequestedVisits [id number] Review Auto-Generated Referral / * MRI/CT (Routine) - Pending ReviewSpecialtyDiagnoses / ProceduresReferred By ContactRefmercyed To [facility] IMAGING Diagnoses Persistent atrial fibrillation (HCC) Procedures CT PULMONARY VEIN W IVCON CT HEART CONTRAST EVAL CARDIAC STRUCTURE&MORPH 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 APRN.CNP [address] [place] [address] Ct Imaging Referral IDStatusReasonStart DateExpiration DateVisits RequestedVisits [id number] Review Auto-Generated Referral * Outpatient Procedure (Routine) - Pending ReviewSpecialtyDiagnoses / Procedures Referred By ContactReferred To [facility] Diagnoses Persistent atrial fibrillation (HCC) Procedures ECHO ECHO TTHRC R-T 2D W/WOM-MODE COMPL SPEC&COLR D 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 APRN.CNP [address] [facility] [facility] [address] [place] [address] [address] [place] [address] Referral IDStatusTessasonStportland DateExpiration DateVisits RequestedVisits [id number] Review Auto-Generated Referral [facility] for referral (narrative)* Outpatient Procedure (Routine) - ClosedSpecialtyDiagnoses / ProceduresReferred By ContactReferred To [facility] Diagnoses Atrial fibrillation, persistent (HCC) Procedures ECG COMPLETE ECG ROUTINE ECG W/LEAST 12 LDS W/I&R Hiren Sena MD [address] [place] [address] [address] [place] [address] Referral IDStatusTessDeKalb Regional Medical Center DateExpiration DateVisits RequestedVisits [id number] Auto-Generated Referral [facility] for referral (narrative)No reason for referral information availableRegency Hospital [facility] Work Phone: Summary Purpose Family History Unknown [...] Age at Onset Recorded Date/T nalini father [place]'s disease Unknown fatherDeceasedUnknownNot SpecifiedDeceasedUnknownMalignant neoplasmUnknown grandparentMalignant neoplasm [...] Procedures CONSULT TO LUNG NODULE CLINIC OFFICE/OUTPATIENT [facility] 60-74 MINUTES Barbara Mccloud APRN.CNP [address] [place] [id number] Referral IDStatusReasonStart DateExpiration DateVisits RequestedVisits [id number] Review PCP Requested Referral /[id number] / ProceduresReferred By ContactReferred To ContactCT IMAGING Diagnoses Persistent atrial fibrillation (HCC) Procedures CT PULMONARY VEIN W IVCON CT HEART CONTRAST EVAL CARDIAC STRUCTURE&MORPH 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 APRN.PRODUCT SAFETY TECHNICIAN [address] [place] [address] Ct Imaging Referral IDStatusTessDeKalb Regional Medical Center DateExpiration DateVisits RequestedVisits [id number] Auto-Generated Referral / Chief Complaint and Reason [...] section and content) DATE CREATED AUTHOR 05/19/2020 [facility] DATE CREATED AUTHOR AUTHOR'S ORGANIZ ATION 06/27/2021 [employer] DATE CREATED AUTHOR AUTHOR'S ORGANIZ ATION 08/30/2021 [facility] DATE CREATED AUTHOR AUTHOR'S ORGANIZ ATION 10/18/2022 [facility] DATE CREATED AUTHOR AUTHOR'S ORGANIZ ATION 01/31/2023 [facility] DATE CREATED AUTHOR AUTHOR'S ORGANIZ ATION 04/11/2023 [facility] DATE CREATED AUTHOR AUTHOR'S ORGANIZ ATION 01/18/2024 [facility] DATE CREATED AUTHOR AUTHOR'S ORGANIZ ATION 03/05/2025 [facility] DATE CREATED AUTHOR AUTHOR'S ORGANIZ ATION 03/20/2025 [facility] DATE CREATED AUTHOR AUTHOR'S ORGANIZ ATION 05/30/2025 [facility] DATE CREATED AUTHOR AUTHOR'S ORGANIZ ATION 06/14/2025 [facility] Source Comments (unrecognize d section and content) In the event this informatio n is protected by the Federal Confidentiality of Alcohol and Drug Abuse Patient Records regulations: The Federal rules restrict any use of the information to criminally investigate or prosecute any alcohol or drug abuse patient.Holzer Health SystemIn the event this information is protected by the Federal Confidentiality of Alcohol and Drug Abuse Patient Records regulations: The Federal rules restrict any use of the information to criminally investigate or prosecute any alcohol or drug abuse patient.Hol[facility] Health SystemIn the event this information is protected by the Federal Confidentiality of Alcohol and Drug Abuse Patient Records regulations: The Federal rules restrict any use of the information to criminally investigate or prosecute any alcohol or drug abuse patient.[facility] Health SystemIn the event this information is protected by the Federal Confidentiality of Alcohol and Drug Abuse Patient Records regulations: The Federal rules restrict any use of the information to criminally investigate or prosecute any alcohol or drug abuse patient.Hol[facility] Health SystemIn the event this information is protected by the Federal Confidentiality of Alcohol and Drug Abuse Patient Records regulations: The Federal rules restrict any use of the information to criminally investigate or prosecute any alcohol or drug abuse patient.Holzer Health SystemIn the event this information is protected by the Federal Confidentiality of Alcohol and Drug Abuse Patient Records regulations: The Federal rules restrict any use of the information to criminally investigate or prosecute any alcohol or drug abuse patient.[facility] SystemIn the event this information is protected by the Federal Confidentiality of Alcohol and Drug Abuse Patient Records regulations: The Federal rules restrict any use of the information to criminally investigate or prosecute any alcohol or drug abuse patient.[facility] SystemIn the event this information is protected by the Federal Confidentiality of Alcohol and Drug Abuse Patient Records regulations: The Federal rules restrict any use of the information to criminally investigate or prosecute any alcohol or drug abuse patient.[facility] SystemIn the event this information is protected by the Federal Confidentiality of Alcohol and Drug Abuse Patient Records regulations: The Federal rules restrict any use of the information to criminally investigate or prosecute any alcohol or drug abuse patient.[facility] SystemIn the event this information is protected by the Federal Confidentiality of Alcohol and Drug Abuse Patient Records regulations: The Federal rules restrict any use of the information to criminally investigate or prosecute any alcohol or drug abuse patient.[facility] SystemIn the event this information is protected by the Federal Confidentiality of Alcohol and Drug Abuse Patient Records regulations: The Federal rules restrict any use of the information to criminally investigate or prosecute any alcohol or drug abuse patient.[facility] SystemIn the event this information is protected by the Federal Confidentiality of Alcohol and Drug Abuse Patient Records regulations: The Federal rules restrict any use of the information to criminally investigate or prosecute any alcohol or drug abuse patient.[facility] SystemIn the event this information is protected by the Federal Confidentiality of Alcohol and Drug Abuse Patient Records regulations: The Federal rules restrict any use of the information to criminally investigate or prosecute any alcohol or drug abuse patient.[facility] SystemIn the event this information is protected by the Federal Confidentiality of Alcohol and Drug Abuse Patient Records regulations: The Federal rules restrict any use of the information to criminally investigate or prosecute any alcohol or drug abuse patient.[facility] SystemIn the event this information is protected by the Federal Confidentiality of Alcohol and Drug Abuse Patient Records regulations: The Federal rules restrict any use of the information to criminally investigate or prosecute any alcohol or drug abuse patient.[facility] SystemIn the event this information is protected by the Federal Confidentiality of Alcohol and Drug Abuse Patient Records regulations: The Federal rules restrict any use of the information to criminally investigate or prosecute any alcohol or drug abuse patient.[facility] SystemIn the event this information is protected by the Federal Confidentiality of Alcohol and Drug Abuse Patient Records regulations: The Federal rules restrict any use of the information to criminally investigate or prosecute any alcohol or drug abuse patient.[facility] SystemIn the event this information is protected by the Federal Confidentiality of Alcohol and Drug Abuse Patient Records regulations: The Federal rules restrict any use of the information to criminally investigate or prosecute any alcohol or drug abuse patient.[facility] SystemIn the event this information is protected by the Federal Confidentiality of Alcohol and Drug Abuse Patient Records regulations: The Federal rules restrict any use of the information to criminally investigate or prosecute any alcohol or drug abuse patient.[facility] SystemIn the event this information is protected by the Federal Confidentiality of Alcohol and Drug Abuse Patient Records regulations: The Federal rules restrict any use of the information to criminally investigate or prosecute any alcohol or drug abuse patient.[facility] SystemIn the event this information is protected by the Federal Confidentiality of Alcohol and Drug Abuse Patient Records regulations: The Federal rules restrict any use of the information to criminally investigate or prosecute any alcohol or drug abuse patient.[facility] SystemIn the event this information is protected by the Federal Confidentiality of Alcohol and Drug Abuse Patient Records regulations: The Federal rules restrict any use of the information to criminally investigate or prosecute any alcohol or drug abuse patient.[facility] SystemIn the event this information is protected by the Federal Confidentiality of Alcohol and Drug Abuse Patient Records regulations: The Federal rules restrict any use of the information to criminally investigate or prosecute any alcohol or drug abuse patient.[facility] SystemIn the event this information is protected by the Federal Confidentiality of Alcohol and Drug Abuse Patient Records regulations: The Federal rules restrict any use of the information to criminally investigate or prosecute any alcohol or drug abuse patient.[facility] SystemIn the event this information is protected by the Federal Confidentiality of Alcohol and Drug Abuse Patient Records regulations: The Federal rules restrict any use of the information to criminally investigate or prosecute any alcohol or drug abuse patient.[facility] SystemIn the event this information is protected by the Federal Confidentiality of Alcohol and Drug Abuse Patient Records regulations: The Federal rules restrict any use of the information to criminally investigate or prosecute any alcohol or drug abuse patient.[facility] SystemIn the event this information is protected by the Federal Confidentiality of Alcohol and Drug Abuse Patient Records regulations: The Federal rules restrict any use of the information to criminally investigate or prosecute any alcohol or drug abuse patient.[facility] SystemIn the event this information is protected by the Federal Confidentiality of Alcohol and Drug Abuse Patient Records regulations: The Federal rules restrict any use of the information to criminally investigate or prosecute any alcohol or drug abuse patient.[facility] SystemIn the event this information is protected by the Federal Confidentiality of Alcohol and Drug Abuse Patient Records regulations: The Federal rules restrict any use of the information to criminally investigate or prosecute any alcohol or drug abuse patient.[facility] SystemIn the event this information is protected by the Federal Confidentiality of Alcohol and Drug Abuse Patient Records regulations: The Federal rules restrict any use of the information to criminally investigate or prosecute any alcohol or drug abuse patient.[facility] SystemIn the event this information is protected by the Federal Confidentiality of Alcohol and Drug Abuse Patient Records regulations: The Federal rules restrict any use of the information to criminally investigate or prosecute any alcohol or drug abuse patient.[facility] SystemIn the event this information is protected by the Federal Confidentiality of Alcohol and Drug Abuse Patient Records regulations: The Federal rules restrict any use of the information to criminally investigate or prosecute any alcohol or drug abuse patient.[facility] SystemIn the event this information is protected by the Federal Confidentiality of Alcohol and Drug Abuse Patient Records regulations: The Federal rules restrict any use of the information to criminally investigate or prosecute any alcohol or drug abuse patient.[facility] SystemIn the event this information is protected by the Federal Confidentiality of Alcohol and Drug Abuse Patient Records regulations: The Federal rules restrict any use of the information to criminally investigate or prosecute any alcohol or drug abuse patient.[facility] SystemIn the event this information is protected by the Federal Confidentiality of Alcohol and Drug Abuse Patient Records regulations: The Federal rules restrict any use of the information to criminally investigate or prosecute any alcohol or drug abuse patient.[facility] SystemIn the event this information is protected by the Federal Confidentiality of Alcohol and Drug Abuse Patient Records regulations: The Federal rules restrict any use of the information to criminally investigate or prosecute any alcohol or drug abuse patient.[facility] SystemIn the event this information is protected by the Federal Confidentiality of Alcohol and Drug Abuse Patient Records regulations: The Federal rules restrict any use of the information to criminally investigate or prosecute any alcohol or drug abuse patient.[facility] SystemIn the event this information is protected by the Federal Confidentiality of Alcohol and Drug Abuse Patient Records regulations: The Federal rules restrict any use of the information to criminally investigate or prosecute any alcohol or drug abuse patient.[facility] SystemIn the event this information is protected by the Federal Confidentiality of Alcohol and Drug Abuse Patient Records regulations: The Federal rules restrict any use of the information to criminally investigate or prosecute any alcohol or drug abuse patient.[facility] SystemIn the event this information is protected by the Federal Confidentiality of Alcohol and Drug Abuse Patient Records regulations: The Federal rules restrict any use of the information to criminally investigate or prosecute any alcohol or drug abuse patient.[facility] SystemIn the event this information is protected by the Federal Confidentiality of Alcohol and Drug Abuse Patient Records regulations: The Federal rules restrict any use of the information to criminally investigate or prosecute any alcohol or drug abuse patient.[facility] SystemIn the event this information is protected by the Federal Confidentiality of Alcohol and Drug Abuse Patient Records regulations: The Federal rules restrict any use of the information to criminally investigate or prosecute any alcohol or drug abuse patient.[facility] SystemIn the event this information is protected by the Federal Confidentiality of Alcohol and Drug Abuse Patient Records regulations: The Federal rules restrict any use of the information to criminally investigate or prosecute any alcohol or drug abuse patient.[facility] SystemIn the event this information is protected by the Federal Confidentiality of Alcohol and Drug Abuse Patient Records regulations: The Federal rules restrict any use of the information to criminally investigate or prosecute any alcohol or drug abuse patient.[facility] SystemIn the event this information is protected by the Federal Confidentiality of Alcohol and Drug Abuse Patient Records regulations: The Federal rules restrict any use of the information to criminally investigate or prosecute any alcohol or drug abuse patient.[facility] SystemIn the event this information is protected by the Federal Confidentiality of Alcohol and Drug Abuse Patient Records regulations: The Federal rules restrict any use of the information to criminally investigate or prosecute any alcohol or drug abuse patient.[facility] SystemIn the event this information is protected by the Federal Confidentiality of Alcohol and Drug Abuse Patient Records regulations: The Federal rules restrict any use of the information to criminally investigate or prosecute any alcohol or drug abuse patient.[facility] SystemIn the event this information is protected by the Federal Confidentiality of Alcohol and Drug Abuse Patient Records regulations: The Federal rules restrict any use of the information to criminally investigate or prosecute any alcohol or drug abuse patient.[facility] SystemIn the event this information is protected by the Federal Confidentiality of Alcohol and Drug Abuse Patient Records regulations: The Federal rules restrict any use of the information to criminally investigate or prosecute any alcohol or drug abuse patient.[facility] SystemIn the event this information is protected by the Federal Confidentiality of Alcohol and Drug Abuse Patient Records regulations: The Federal rules restrict any use of the information to criminally investigate or prosecute any alcohol or drug abuse patient.[facility] SystemIn the event this information is protected by the Federal Confidentiality of Alcohol and Drug Abuse Patient Records regulations: The Federal rules restrict any use of the information to criminally investigate or prosecute any alcohol or drug abuse patient.[facility] SystemIn the event this information is protected by the Federal Confidentiality of Alcohol and Drug Abuse Patient Records regulations: The Federal rules restrict any use of the information to criminally investigate or prosecute any alcohol or drug abuse patient.[facility] SystemIn the event this information is protected by the Federal Confidentiality of Alcohol and Drug Abuse Patient Records regulations: The Federal rules restrict any use of the information to criminally investigate or prosecute any alcohol or drug abuse patient.[facility] SystemIn the event this information is protected by the Federal Confidentiality of Alcohol and Drug Abuse Patient Records regulations: The Federal rules restrict any use of the information to criminally investigate or prosecute any alcohol or drug abuse patient.[facility] SystemIn the event this information is protected by the Federal Confidentiality of Alcohol and Drug Abuse Patient Records regulations: The Federal rules restrict any use of the information to criminally investigate or prosecute any alcohol or drug abuse patient.[facility] SystemIn the event this information is protected by the Federal Confidentiality of Alcohol and Drug Abuse Patient Records regulations: The Federal rules restrict any use of the information to criminally investigate or prosecute any alcohol or drug abuse patient.[facility] SystemIn the event this information is protected by the Federal Confidentiality of Alcohol and Drug Abuse Patient Records regulations: The Federal rules restrict any use of the information to criminally investigate or prosecute any alcohol or drug abuse patient.[facility] SystemIn the event this information is protected by the Federal Confidentiality of Alcohol and Drug Abuse Patient Records regulations: The Federal rules restrict any use of the information to criminally investigate or prosecute any alcohol or drug abuse patient.[facility] SystemIn the event this information is protected by the Federal Confidentiality of Alcohol and Drug Abuse Patient Records regulations: The Federal rules restrict any use of the information to criminally investigate or prosecute any alcohol or drug abuse patient.[facility] SystemIn the event this information is protected by the Federal Confidentiality of Alcohol and Drug Abuse Patient Records regulations: The Federal rules restrict any use of the information to criminally investigate or prosecute any alcohol or drug abuse patient.[facility] SystemIn the event this information is protected by the Federal Confidentiality of Alcohol and Drug Abuse Patient Records regulations: The Federal rules restrict any use of the information to criminally investigate or prosecute any alcohol or drug abuse patient.[facility] SystemIn the event this information is protected by the Federal Confidentiality of Alcohol and Drug Abuse Patient Records regulations: The Federal rules restrict any use of the information to criminally investigate or prosecute any alcohol or drug abuse patient.[facility] SystemIn the event this information is protected by the Federal Confidentiality of Alcohol and Drug Abuse Patient Records regulations: The Federal rules restrict any use of the information to criminally investigate or prosecute any alcohol or drug abuse patient.[facility] SystemIn the event this information is protected by the Federal Confidentiality of Alcohol and Drug Abuse Patient Records regulations: The Federal rules restrict any use of the information to criminally investigate or prosecute any alcohol or drug abuse patient.[facility] SystemIn the event this information is protected by the Federal Confidentiality of Alcohol and Drug Abuse Patient Records regulations: The Federal rules restrict any use of the information to criminally investigate or prosecute any alcohol or drug abuse patient.[facility] SystemIn the event this information is protected by the Federal Confidentiality of Alcohol and Drug Abuse Patient Records regulations: The Federal rules restrict any use of the information to criminally investigate or prosecute any alcohol or drug abuse patient.[facility] SystemIn the event this information is protected by the Federal Confidentiality of Alcohol and Drug Abuse Patient Records regulations: The Federal rules restrict any use of the information to criminally investigate or prosecute any alcohol or drug abuse patient.[facility] Reason for Visit (unrecogniz ed section and content) ReasonCommentsPatient EducationPVIReasonCommentsTransmitter3 monthsReason CommentsPost Ca Program Call - Needs AttnReasonCommentschest discomfort after ablationReasonOnset DateCommentsRefill Sppwojo86/28/2022ReasonOnset DateComments Refill Tfwubyg62/29/2022ReasonCommentsAtrial FibrillationReasonCommentsRadiology CTSpecialtyDiagnoses / ProceduresReferred By ContactReferred To ContactCT IMAGING Diagnoses Persistent atrial fibrillation (HCC) Procedures CT PULMONARY VEIN W IVCON CT HEART CONTRAST EVAL CARDIAC STRUCTURE&MORPH 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 APRN.PRODUCT SAFETY TECHNICIAN [address] [place] [address] Ct Imaging Referral IDStatusReasonStart DateExpiration DateVisits RequestedVisits [id number] Auto-Generated Referral /[id number] Patient Follow-Upresults form CT scanReasonCommentsEstablished Patient6 week follow upReasonCommentsCardiology Follow UpReasonCommentsPatient UpdateReasonCommentsResultsReasonComments Cardiology Follow UpReasonCommentsRefill RequestReasonOnset DateCommentsRefill Myhpqfv9510/13/2022ReasonCommentsPatient QuestionReasonCommentsFollow UpReason Jkurffea4fh po colonoscopyReasonCommentsKnee PainReasonCommentsBack PainReason CommentsConsultScreening colonoscopySpecialtyDiagnoses / ProceduresReferred By ContactReferred To ContactGeneral Surgery Diagnoses Screening for malignant neoplasm of colon Procedures [place] OFFICE/OUTPATIENT NEW HIGH MDM 60 MINUTES Linda Jansen, PA [address] [facility] [address] [place] [address] Grace Bucio MD [address] [place] [address] Referral IDStatusReasonStart DateExpiration DateVisits RequestedVisits [id number] Specialty Services Required /[id number] PainPost-opReasonCommentsKnee Pain Post-opPainReasonCommentsPainReasonOnset DateCommentsRefill Nnobkbp0901/01/2025 Care Teams (unrecognized sec tion and content) Team MemberRelationshipSpecialtyStart [place] [address] [place] [address] Primary Staff PhysicianCardiology03/22/22Team MemberRelationshipSpecialtyStart [place] [address] [place] [address] Primary Staff PhysicianCardiology03/22/22Team MemberRelationshipSpecialtyStart [place] [address] [place] [address] Primary Staff PhysicianCardiology03/22/22Team MemberRelationshipSpecialtyStart DateEnd Date Ita Tuttle [place] [id number] [place] [address] Primary Staff PhysicianCardiology03/22/22Team MemberRelationshipSpecialtyStart DateEnd Date Ita Tuttle [place] [id number] [place] [address] Primary Staff PhysicianCardiology03/22/22Team MemberRelationshipSpecialtyStart DateEnd Date Ita Tuttle MD [address] [place] [address] Primary Staff PhysicianCardiology03/22/22Team MemberRelationshipSpecialtyStart DateEnd Date Ita Tuttle [place] [id number] [place] [address] Primary Staff PhysicianCardiology03/22/22Team MemberRelationshipSpecialtyStart DateEnd Date Ita Tuttle [place] [id number] [place] [address] Primary Staff PhysicianCardiology03/22/22Team MemberRelationshipSpecialtyStart DateEnd Date Ita Tuttle [place] [id number] [place] [address] Primary Staff PhysicianCardiology03/22/22Team MemberRelationshipSpecialtyStart DateEnd Date Ita Tuttle MD [id number] [place] [address] Primary Staff PhysicianCardiology03/22/22Team MemberRelationshipSpecialtyStart [place] [address] [facility] [place] [address] Primary Staff PhysicianCardiology03/22/22Team MemberRelationshipSpecialtyStart [place] [address] [place] [address] Primary Staff PhysicianCardiology03/22/22Team MemberRelationshipSpecialtyStart [place] [address] [place] [address] Primary Staff PhysicianCardiology03/22/22Team MemberRelationshipSpecialtyStart [place] [address] [place] [address] Primary Staff PhysicianCardiology03/22/22Team MemberRelationshipSpecialtyStart DateEnd Date Ita Tuttle [place] [id number] [place] [address] Primary Staff PhysicianCardiology03/22/22Team MemberRelationshipSpecialtyStart [place] [address] [place] [address] Primary Staff PhysicianCardiology03/22/22Team MemberRelationshipSpecialtyStart [place] [address] [place] [address] Primary Staff PhysicianCardiology7/29/22Team MemberRelationshipSpecialtyStart [place] [address] [place] [address] Primary Staff PhysicianCardiology03/22/22 Team Status: Active Member Role Status Dates Linda Jansen PA-C Primary Care Provider Active Team Status: Active Member Role Status Dates Sedrick Ye MD Primary Care Provider Active S tart: January 23, 2024 Christian Carlos II, DOAttending ProviderActiveStart: January 23, 2024 Linda Jansen SEATING AND MOBILITY TECHNOLOGIST-CReferring ProviderActiveStart: January 23, 2024 Team Status: Inactive Member Role Status Dates Christian Carlos II, DO Attending Provider Active Start: January 23, 2024 End: January 23, 2024[facility], Referring Provider ActiveStart: January 23, 2024 End: January 23, 2024Team MemberRelationshipSpecialtyStart [place] [address] [place] [address] Primary Staff PhysicianCardiology03/22/22Team MemberRelationshipSpecialtyStart [place] [address] [place] [address] Primary Staff PhysicianCardiology03/22/22 Team Status: Active Member Role Status Dates Sedrick Ye MD Primary Care Provider Active S tart: April 23, 2024 Christian Carlos II, DOAttending ProviderActiveStart: April 23, 2024 Linda Jansen SEATING AND MOBILITY TECHNOLOGIST-CReferring ProviderActiveStart: April 23, 2024 Team Status: Inactive Member Role Status Dates Irene Solares APRN Attending Provider Acti ve Start: April 23, 2024 End: April 23, 2024Team MemberRelationshipSpecialtyStart DateEnd Date Linda Jansen, PA [address] [place] [address] PCP - [facility]08/06/23 Linda Jansen PA [address] [place] [address] PCP - [facility]/Team MemberRelationshipSpecialty Start DateEnd Date Linda Jansen PA [address] [place] [address] PCP - [facility]08/06/23 Linda Jansen PA [address] [place] [address] PCP - [facility]02/23/2312Team MemberRelationshipSpecialty Start DateEnd Date Linda Jansen, PA [address] [place] [address] PCP - [facility]08/06/23 Linda Jansen, PA [address] [place] [address] PCP - [facility]02/23/2312Team MemberRelationshipSpecialty Start DateEnd Date Linda Jansen, PA [address] [place] [address] PCP - [facility]08/06/23 Linda Jansen PA [address] [place] [address] PCP - [facility]02/23/2312Team MemberRelationshipSpecialty Start DateEnd Date Linda Jansen PA [address] [place] [address] [facility] - [facility] Ojiibcmi31[facility]/23 Linda Jansen PA [address] [place] [address] PCP - Medical [employer]02/23/2312Team MemberRelationshipSpecialty Start DateEnd Date Linda Jansen PA [address] [facility] [address] [place] [address] [facility] - [facility] Linda Jansen PA [address] [facility] [address] [place] [address] PCP - Medical [employer]02/23/2312Team MemberRelationshipSpecialty [place] [address] [place], [place] [id number] Primary Staff PhysicianCardiology03/22/22Team MemberRelationshipSpecialtyStart DateEnd Date Linda Jansen PA [address] [place] [address] PCP - [facility]08/06/23 Linda Jansen PA [address] [place] [address] PCP - Medical [employer]02/23/2312Team MemberRelationshipSpecialty Start DateEnd Date Linda Jansen PA [address] [place] [address] PCP - GeneralFamily Oevpuwyv16/13/23Team MemberRelationshipSpecialtyStart Date End Date Linda Jansen PA [address] [place] [address] PCP - GeneralFamily Yynnybfc34/13/23Team MemberRelationshipSpecialtyStart Date End Date Linda Jansen PA [address] [facility] [address] [place] [address] PCP - GeneralFamily Ujjevces45/13/23Team MemberRelationshipSpecialtyStart Date End Date Linda Jansen PA [address] [place] [address] PCP - GeneralFamily Xcanplrz03/13/23 Linda Jansen PA [address] [facility] [address] [place] [address] PCP - Medical [employer]02/23/2312Team MemberRelationshipSpecialty [place] [address] [place] [address] Primary Staff PhysicianCardiology03/22/22Team MemberRelationshipSpecialtyStart DateEnd Date Linda Jansen PA [address] [facility] [address] [place] [address] PCP - GeneralFamily Kanuptfr32/13/23 Linda Jansen PA [address] [address] PCP - Medical [employer]02/23/2312 Team Status: Active Member Role Status Dates NON STAFF Primary Care Provider Active Team Status: Active Member Role Status Dates Sedrick Ye MD Primary Care Provider Active S tart: November 12, 2024 Christian Carlos II, DOAttending ProviderActiveStart: November 12, 2024 Linda Jansen , SEATING AND MOBILITY TECHNOLOGIST-CReferring ProviderActiveStart: November 12, 2024 Team Status: Inactive Member Role Status Dates NON STAFF Primary Care Provider Active Start: November 30, 2024 End: November 30ashleigh Gómez - CHC , DO CHCAttending ProviderActiveStart: November 30, 2024 End: November 30, 2024Team MemberRelationshipSpecialtyStart [place] [address] [place] [address] Primary Staff PhysicianCardiology03/22/22Team MemberRelationshipSpecialtyStart DateEnd Date Linda Jansen PA [address] [place] [address] PCP - GeneralFamily Fzbukapy60/13/23 Linda Jansen PA [address] [place] [address] PCP - Medical [employer]02/23/2312Team MemberRelationshipSpecialty Start DateEnd Date Linda Jansen PA [address] [place] [address] PCP - GeneralFamily Zdpcjaof76/13/23 Linda Jansen PA [address] [address] PCP - Medical [employer]02/23/2312 Team Status: Active Member Role Status Dates Linda Jansen SEATING AND MOBILITY TECHNOLOGIST-C Primary Care Provider Active Team Status: Inactive Member Role Status Dates Christian Carlos II, DO Attending Provider Active Start: January 21, 2025 End: January 21, 2025Linda Jansen SEATING AND MOBILITY TECHNOLOGIST-CPrimary Care ProviderActiveStart: January 21, 2025 End: January 21, 2025Linda Jansen SEATING AND MOBILITY TECHNOLOGIST-CReferring ProviderActiveStart: January 21, 2025 Team Status: Inactive Member Role Status Dates Linda Jansen SEATING AND MOBILITY TECHNOLOGIST-C Primary Care Provider Active Start: February 10, 2025 End: February 10, 2025Christian Carlos II, Attending ProviderActiveStart: February 10, 2025 End: February 10, 2025 Team Status: Inactive Member Role Status Dates Linda Jansen SEATING AND MOBILITY TECHNOLOGIST-C Primary Care Provider Active Start: February 19, 2025 End: February 19, 2025Clair Moss ProviderActiveStart: February 19, 2025 End: February 19, 2025Team MemberRelationshipSpecialtyStart DateEnd Date Linda Jansen PA [address] [address] [facility] Ivccjkrz42/13/23 Linda Jansen PA [address] [address] PCP - Medical [employer]02/23/2312 Team Status: Inactive Member Role Status Dates Christian Carlos II, DO Attending Provider Active Start: January 21, 2025 End: January 21, 2025Linda Jansen SEATING AND MOBILITY TECHNOLOGIST-CPrimary Care ProviderActiveStart: January 21, 2025 End: January 21, 2025 Team Status: Inactive Member Role Status Dates Linda Jansen SEATING AND MOBILITY TECHNOLOGIST-C Primary Care Provider Active Start: March 04, [...] Team MemberRelationshipSpecialtyStart [place] [address] [place] [address] Primary Staff PhysicianCardiology03/22/22Team MemberRelationshipSpecialtyStart DateEnd Date Linda Jansen PA [address] [address] [facility] - [facility] Sjyjzieh32/13/23Team MemberRelationshipSpecialtyStart Date End Date Linda Jansen PA [address] [address] [facility] - [facility] Ztxxjdnd26/13/23Team MemberRelationshipSpecialtyStart Date End Date Linda Jansen PA [address] [address] PCP - GeneralFamily Iptshntm01/13/23 Team Status: Inactive Member Role Status Dates [...] Start: May 13, 2025 Linda Olmedojhonatan , SEATING AND MOBILITY TECHNOLOGIST-CPrimary Care ProviderActiveStart: May 13, 2025 Linda Jansen , SEATING AND MOBILITY TECHNOLOGIST-CReferring ProviderActiveStart: May 13, 2025 Team Status: Inactive Member Role Status Dates Linda Jansen SEATING AND MOBILITY TECHNOLOGIST-C Primary Care Provider Active Start: May 27, 2025 End: May 27, 2025Keithmoise Carlos II, DOAttending ProviderActiveStart: May 27, 2025 End: May 27, 2025 Team Status: Active Member Role Status Dates Christian Carlos II DO Attending Provider Active Start: May 27, 2025 Linda Jansen SEATING AND MOBILITY TECHNOLOGIST-CPrimary Care ProviderActiveStart: May 27, 2025 Linda Olmedojhonatan SEATING AND MOBILITY TECHNOLOGIST-CReferring ProviderActiveStart: May 27, 2025 Team MemberRelationshipSpecialtyStart DateEnd Date Linda Jansen PA [address] [facility] [address] [place] [address] [facility] - [facility] Qspspwjn47/13/23 Linda Jansen PA [address] [facility] [address] [place] [address] PCP - Medical [facility] Goals (unrecognized section and content) Goals may [...] BE BASED ON THE PRIMARY CLINICAL RECORDS. [employer] [facility]. provides no warranty or guarantee of the accuracy or completeness of information in this document.
[2025-07-22 06:53] LABS: Hematocrit 38.4 % (42.0-54.0); Hemoglobin 12.7 g/dL (14.0-18.0); Mean Corpuscular HGB Conc 33.1 g/dL (29.9-35.2); Mean Corpuscular Hemoglobin 33.7 pg (25.9-34.0); Mean Corpuscular Volume 101.9 fL (80.0-94.0); Platelet Count 168 10^3/uL (150-450); Red Blood Count 3.77 10^6/uL (4.70-6.10); White Blood Count 26.1 10^3/uL (4.0-11.0)
[2025-07-22 10:12] LABS: Basophils Abs Manual 0.00 10^3/uL (0.00-0.10); Basophils Percent Manual 0.0 % (0.2-2.0); Eosinophils Absolute Manual 0.00 10^3/uL (0.00-0.70); Eosinophils Percent Manual 0.0 % (0.9-7.0); Lymphocytes Absolute Manual 18.79 10^3/uL (1.20-3.80); Lymphocytes Percent Manual 72.0 % (20.5-60.0); Monocytes Absolute Manual 0.26 10^3/uL (0.30-0.80); Monocytes Percent Manual 1.0 % (1.7-12.0); Segmented Neut Absolute Manual 7.04 10^3/uL (1.4-6.5); Segmented Neutrophils % Manual 27.0 (43.0-75.0); Smudge Cells SEEN
== END 2025-07-22 06:13 | disposition home or self-care (01) ==
LOC: LAB 06:14
PROVIDERS: PCP Physician Assistant; Visit Provider Internal Medicine
DX: C91.10 Chronic lymphocytic leukemia of B-cell type not having achieved remission (principal); D59.10 Autoimmune hemolytic anemia, unspecified
CPT/HCPCS: 36415; 83615; 85007; 85027